=== PATIENT | female | born 1945 | race Caucasian/White ===

== ENCOUNTER 2022-12-01 14:22 | Emergency (ER) | payer MEDICARE, OTHER, SELFPAY ==
[2022-12-01 14:31] VITALS: BP 122/74; PULSE 58; RESP 16; TEMP 36.7; O2SAT 98; BMI 46.3
--- NOTE | 2022-12-01 14:40 | CT_ITS ---
The [address] [address] Patient Name: LUMA RIBEIRO MRN: [id number] date: 1945 Sex: F Assigned Patient Location: ER Current Patient Location: ER Accession/Order Number: [id number] Exam Date: 12/01/2022 14:50 Report Date: 12/01/2022 15:14 At the request of: LEE THORPE Procedure: CT facial bones wo con EXAMINATION: CT head/brain wo con, CT facial bones wo con HISTORY: fall COMPARISON: None. TECHNIQUE: CT scan of the head and facial was performed without IV contrast. CT dose reduction technique was used, including Automated Exposure Control. FINDINGS: There are no extra-axial fluid collections. There is no mass effect or midline shift. The cerebral ventricles and sulci are normal. The brain demonstrates normal attenuation. Basal cisterns are patent. There is bilateral subcortical and deep periventricular white matter chronic microvascular ischemia. There is mucosal thickening of the ethmoid air cells. Bilateral orbits, optic nerves, paranasal sinuses and mastoid air cells are patent. No skull base fracture. The TM joint is normal. CT/CT facial bones wo con IMPRESSION: No acute intracranial hemorrhage. No facial bone fracture. Electronically authenticated by: ORAL GALAN Date: 12/01/2022 15:14
--- NOTE | 2022-12-01 14:40 | CT_ITS ---
The [address] [address] Patient Name: LUMA RIBEIRO MRN: [id number] date: 1945 Sex: F Assigned Patient Location: ER Current Patient Location: ER Accession/Order Number: [id number] Exam Date: 12/01/2022 14:50 Report Date: 12/01/2022 15:14 At the request of: LEE THORPE Procedure: CT head/brain wo con EXAMINATION: CT head/brain wo con, CT facial bones wo con HISTORY: fall COMPARISON: None. TECHNIQUE: CT scan of the head and facial was performed without IV contrast. CT dose reduction technique was used, including Automated Exposure Control. FINDINGS: There are no extra-axial fluid collections. There is no mass effect or midline shift. The cerebral ventricles and sulci are normal. The brain demonstrates normal attenuation. Basal cisterns are patent. There is bilateral subcortical and deep periventricular white matter chronic microvascular ischemia. There is mucosal thickening of the ethmoid air cells. Bilateral orbits, optic nerves, paranasal sinuses and mastoid air cells are patent. No skull base fracture. The TM joint is normal. CT/CT head/brain wo con IMPRESSION: No acute intracranial hemorrhage. No facial bone fracture. Electronically authenticated by: ORAL GALAN Date: 12/01/2022 15:14
--- NOTE | 2022-12-01 14:40 | XR_ITS ---
The [address] [address] Patient Name: LUMA RIBEIRO MRN: [id number] date: 1945 Sex: F Assigned Patient Location: ER Current Patient Location: ER Accession/Order Number: [id number] Exam Date: 12/01/2022 15:00 Report Date: 12/01/2022 15:23 At the request of: LEE THORPE Procedure: XR elbow RT min 3V EXAM: XR elbow RT min 3V HISTORY: Fall COMPARISON: None. TECHNIQUE: 3 views FINDINGS: Overall bony architecture is normal. There is narrowing at the proximal radioulnar articulation with early marginal osteophytosis of the radial head. The anterior distal humeral fat pad appears mildly displaced. However, this finding is difficult to assess as the lateral view is very slightly oblique. Dorsal soft tissue swelling is noted. XR/XR elbow RT min 3V IMPRESSION: Early degenerative changes at the proximal radioulnar articulation. No definite direct or indirect finding for acute fracture at the elbow. It is recommended that the patient return for a true lateral view to assess the distal humeral fat pads. Electronically authenticated by: Michael BURNETTE Date: 12/01/2022 15:23
--- NOTE | 2022-12-01 14:40 | XR_ITS ---
The [address] [address] Patient Name: LUMA RIBEIRO MRN: [id number] date: 1945 Sex: F Assigned Patient Location: ER Current Patient Location: Accession/Order Number: [id number] Exam Date: 12/01/2022 15:00 Report Date: 12/01/2022 15:32 At the request of: LEE THORPE Procedure: XR knee RT 3V EXAM: XR knee RT 3V HISTORY: Fall COMPARISON: None. TECHNIQUE: 2 views of the right knee. FINDINGS: Bones: No acute or aggressive appearing bony lesion. Joints: Normal alignment. No effusion. 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 Soft tissues: Unremarkable. XR/XR knee RT 3V IMPRESSION: No acute fracture. Electronically authenticated by: ORAL GALAN Date: 12/01/2022 15:32
--- NOTE | 2022-12-01 14:41 | ED.FALL1 ---
HPI - Fall General Chief Complaint: Fall Stated Complaint: FALL Time Seen by Provider: 12/01/22 14:40 Source: patient Mode of arrival: ambulance Limitations: no limitations History of Present Illness HPI Narrative: patient is a 77-year-old female presents to the emergency department by ambulance for injuries after a fall. Patientt was walking into her doctor's office with a walker when she tripped on the curb and fell on her right side. She denies head injury, loss of consciousness, neck or back pain. She sustained a small scrape to her right elbow. Patient states yesterday when she was getting out of her chair she fell forward after losing her balance and hit the right side of her face on a door frame as well as injured her right knee. She was not evaluated for the injuries yesterday. She is not on any blood thinners. She denies the need for pain medication at this time. Her PCP called 911 to bring her to the Emergency Room to be evaluated. After her fall yesterday, patient was able to ambulate normally. She has a history of right knee replacement. Related Data Home Medications Medication Instructions Recorded Confirmed alprazolam 0.25 mg tablet 0.25 mg PO BID PRN anxiety 12/01/22 12/01/22 amlodipine 5 mg tablet 5 mg PO DAILY 12/01/22 12/01/22 gabapentin 300 mg capsule 300 mg PO BID 12/01/22 12/01/22 hydrocodone 5 mg-acetaminophen 325 1 tab PO Q6H PRN pain 12/01/22 12/01/22 mg tablet meloxicam 15 mg tablet 15 mg PO DAILY 12/01/22 12/01/22 metoprolol succinate 50 mg 50 mg PO DAILY 12/01/22 12/01/22 tablet,extended release 24 hr nortriptyline 10 mg capsule 30 mg PO BEDTIME 12/01/22 12/01/22 pantoprazole 40 mg tablet,delayed 40 mg PO DAILY 12/01/22 12/01/22 release simvastatin 10 mg tablet 10 mg PO DAILY 12/01/22 12/01/22 zolpidem 10 mg tablet 10 mg PO DAILY 12/01/22 12/01/22 Allergies Allergy/AdvReac Type Severity Reaction Status Date / Time clarithromycin Allergy Severe Rash Verified 12/01/22 14:27 moxifloxacin [From Avelox] Allergy Severe tongue Verified 12/01/22 14:27 swelling Sulfa (Sulfonamide Allergy Unknown Verified 12/01/22 14:27 Antibiotics) ciprofloxacin [From Cipro] Allergy Rash Verified 12/01/22 14:27 Review of Systems ROS Constitutional Denies: fever or chills Ears, nose, mouth, and throat Denies: throat pain Cardiovascular Denies: chest pain Respiratory Denies: shortness of breath Gastrointestinal Denies: abdominal pain, nausea or vomiting Genitourinary Denies: painful urination Musculoskeletal Reports: extremity pain; Denies: back pain or neck pain Integumentary/Breast Denies: rash Neurological Denies: headache PFSH PFS Social History Smoking status: Never smoker Exam Narrative Exam Narrative: Gen.: Awake, alert, in no distress Head: Normocephalic, atraumatic; swelling and abrasion noted to the right maxilla under the right orbit with normal extraocular muscle motion ENT: Moist mucous membranes, C-spine nontender with full range of motion Respiratory: No respiratory distress Extremities: Moves extremities equally, well-healed surgical incision over the right knee with mild ecchymosis. No bony point tenderness aand normal range of motion noted. Abrasion to the right posterior elbow, no bony tenderness of the right elbow with normal flexion and extension of the right elbow. Psych: Normal mood and affect Neuro: No focal neuro deficit Skin: Warm, dry Constitutional Vital Signs, click to edit/add: Last Vital Signs Temp 98.1 F 12/01/22 14:31 Pulse 58 L 12/01/22 14:31 Resp 16 12/01/22 14:31 BP 122/74 12/01/22 14:31 Pulse Ox 98 12/01/22 14:31 O2 Del Method Room Air 12/01/22 14:31 Course Vital Signs Vital signs: Vital Signs Temperature 98.1 F 12/01/22 14:31 Pulse Rate 58 L 12/01/22 14:31 Respiratory Rate 16 12/01/22 14:31 Blood Pressure 122/74 12/01/22 14:31 Pulse Oximetry 98 12/01/22 14:31 Oxygen Delivery Method Room Air 12/01/22 14:31 Temperature 98.1 F 12/01/22 14:31 Pulse Rate 58 L 08/03/23 14:31 Respiratory Rate 16 12/01/22 14:31 Blood Pressure 122/74 12/01/22 14:31 Pulse Oximetry 98 12/01/22 14:31 Oxygen Delivery Method Room Air 12/01/22 14:31 MDM - Fall MDM Narrative Medical decision making narrative: CTs of the head and facial bones are unremarkable. These were reviewed by the radiologist. X-rays of the right knee are also unremarkable. Initial right elbow x-rays were incomplete and additional lateral studies were added. No acute process in the right elbow. Patient declined pain medication in the emergency department. Follow-up with PCP. Apply ice to areas of injury and return to the Emergency Room if symptoms change or worsen. Medical Records Attestation: I reviewed the patient's medical records. Imaging Data CT scan - head: Attestation: I have reviewed the pertinent imaging results. Radiologist's impression: Procedure: CT head/brain wo con EXAMINATION: CT head/brain wo con, CT facial bones wo con HISTORY: fall COMPARISON: None. TECHNIQUE: CT scan of the head and facial was performed without IV contrast. CT dose reduction technique was used, including Automated Exposure Control. FINDINGS: There are no extra-axial fluid collections. There is no mass effect or midline shift. The cerebral ventricles and sulci are normal. The brain demonstrates normal attenuation. Basal cisterns are patent. There is bilateral subcortical and deep periventricular white matter chronic microvascular ischemia. There is mucosal thickening of the ethmoid air cells. Bilateral orbits, optic nerves, paranasal sinuses and mastoid air cells are patent. No skull base fracture. The TM joint is normal. IMPRESSION: No acute intracranial hemorrhage. No facial bone fracture. Electronically authenticated by: ORAL GALAN Date: 12/01/2022 15:14 Procedure: CT facial bones wo con EXAMINATION: CT head/brain wo con, CT facial bones wo con HISTORY: fall COMPARISON: None. TECHNIQUE: CT scan of the head and facial was performed without IV contrast. CT dose reduction technique was used, including Automated Exposure Control. FINDINGS: There are no extra-axial fluid collections. There is no mass effect or midline shift. The cerebral ventricles and sulci are normal. The brain demonstrates normal attenuation. Basal cisterns are patent. There is bilateral subcortical and deep periventricular white matter chronic microvascular ischemia. There is mucosal thickening of the ethmoid air cells. Bilateral orbits, optic nerves, paranasal sinuses and mastoid air cells are patent. No skull base fracture. The TM joint is normal. IMPRESSION: No acute intracranial hemorrhage. No facial bone fracture. Electronically authenticated by: ORAL GALAN Date: 12/01/2022 15:14 Procedure: XR elbow RT min 3V EXAM: XR elbow RT min 3V HISTORY: Fall COMPARISON: None. TECHNIQUE: 3 views FINDINGS: Overall bony architecture is normal. There is narrowing at the proximal radioulnar articulation with early marginal osteophytosis of the radial head. The anterior distal humeral fat pad appears mildly displaced. However, this finding is difficult to assess as the lateral view is very slightly oblique. Dorsal soft tissue swelling is noted. IMPRESSION: Early degenerative changes at the proximal radioulnar articulation. No definite direct or indirect finding for acute fracture at the elbow. It is recommended that the patient return for a true lateral view to assess the distal humeral fat pads. Electronically authenticated by: Michael BURNETTE Date: 12/01/2022 15:23 Procedure: XR elbow RT 2V STUDY: XR elbow RT 2V, [id number] HISTORY: lateral view needed COMPARISON: Correlated with same day right elbow x-rays FINDINGS/IMPRESSION: No elbow joint effusion. Mild osteophytosis of the radial head and minimal enthesopathy at the olecranon process. No acute displaced fracture demonstrated. Electronically authenticated by: CATHRYN HOLM Date: 12/01/2022 16:09 Procedure: XR knee RT 3V EXAM: XR knee RT 3V HISTORY: Fall COMPARISON: None. TECHNIQUE: 2 views of the right knee. FINDINGS: Bones: No acute or aggressive appearing bony lesion. Joints: Normal alignment. No effusion. 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 Soft tissues: Unremarkable. IMPRESSION: No acute fracture. Electronically authenticated by: ORAL GALAN Date: 12/01/2022 15:32 Discharge Plan Discharge Chief Complaint: Fall Clinical Impression: Closed head injury, Fall, Contusion of right knee, Abrasion of elbow, right Time of Disposition Decision: 16:24 Condition: Good Prescriptions / Home Meds: No Action alprazolam 0.25 mg tablet 0.25 mg PO BID PRN (Reason: anxiety) amlodipine 5 mg tablet 5 mg PO DAILY gabapentin 300 mg capsule 300 mg PO BID hydrocodone-acetaminophen 5-325 mg tablet 1 tab PO Q6H PRN (Reason: pain) meloxicam 15 mg tablet 15 mg PO DAILY metoprolol succinate 50 mg tablet extended release 24 hr 50 mg PO DAILY nortriptyline 10 mg capsule 30 mg PO BEDTIME pantoprazole 40 mg tablet,delayed release (DR/EC) 40 mg PO DAILY simvastatin 10 mg tablet 10 mg PO DAILY zolpidem 10 mg tablet 10 mg PO DAILY Instructions: Fall Prevention for Older Adults (ED), Head Injury (ED), Contusion in Adults (ED), Abrasion (ED) Stand Alone Forms: Portal Instructions Referrals: REJI FORRESTER [Primary Care Provider] - 1 week
--- NOTE | 2022-12-01 15:27 | XR_ITS ---
The [place] [id number] Patient Name: LUMA RIBEIRO MRN: [id number] date: 1945 Sex: F Assigned Patient Location: ER Current Patient Location: ER Accession/Order Number: [id number] Exam Date: 12/01/2022 15:30 Report Date: 12/01/2022 16:09 At the request of: MARION HAGEN Procedure: XR elbow RT 2V STUDY: XR elbow RT 2V, [id number] HISTORY: lateral view needed COMPARISON: Correlated with same day right elbow x-rays FINDINGS/IMPRESSION: No elbow joint effusion. Mild osteophytosis of the radial head and minimal enthesopathy at the olecranon process. No acute displaced fracture demonstrated. Electronically authenticated by: CATHRYN HOLM Date: 12/01/2022 16:09
== END 2022-12-01 16:40 | disposition home or self-care (01) ==
PROVIDERS: Emergency Provider Emergency Medicine; PCP Internal Medicine
DX: S50.311A Abrasion of right elbow, initial encounter (principal); S80.01XA Contusion of right knee, initial encounter; S09.8XXA Other specified injuries of head, initial encounter; W10.1XXA Fall (on)(from) sidewalk curb, initial encounter; Z79.899 Other long term (current) drug therapy
CPT/HCPCS: 70450; 70486; 73070; 73080; 73562; 99284

== ENCOUNTER 2023-06-22 13:46 | Outpatient (OUT) | payer MEDICARE, OTHER, SELFPAY ==
--- NOTE | 2023-06-22 | ECG_ITS ---
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
--- NOTE | 2023-06-22 14:00 | XR_ITS ---
The [address] [address] Patient Name: LUMA RIBEIRO MRN: [id number] date: 1945 Sex: F Assigned Patient Location: LAB Current Patient Location: LAB Accession/Order Number: [id number] Exam Date: 06/22/2023 14:05 Report Date: 06/22/2023 15:17 At the request of: ALMAS ALFREDO Procedure: XR chest 2V PROCEDURE: XR chest 2V DATE: 06/22/2023 2:05 PM EST COMPARISONS: None. CLINICAL INDICATION: 77 years Female Preop Examination Z01.818 FINDINGS: Heart appears slightly prominent. The lungs are hypoaerated. There is slight diffuse increased interstitial markings throughout all lung baker. Some of this may represent some atelectasis. Much of it probably represents a small amount of scattered chronic lung changes. There is no evidence of pleural effusion or pneumothorax. XR/XR chest 2V IMPRESSION: The lung baker show probable scattered atelectasis and chronic changes. No consolidating infiltrates to suggest pneumonia. Mild cardiomegaly. Electronically authenticated by: MARY LOU JOSE Date: 06/22/2023 15:17
[2023-06-22 14:27] LABS: Basophils Absolute Auto 0.1 10^3/uL (0.0-0.1); Basophils Percent Auto 0.7 % (0.2-2.0); Eosinophils Absolute Auto 0.1 10^3/uL (0.0-0.7); Eosinophils Percent Auto 1.3 % (0.9-7.0); Hematocrit 43.7 % (36.0-48.0); Hemoglobin 14.3 g/dL (12.0-16.0); Immature Granulocytes Abs Auto 0.01 10^3/uL (0.00-0.03); Immature Granulocytes Pct Auto 0.1 % (0.0-0.5); Lymphocytes Absolute Auto 3.8 10^3/uL (1.2-3.8); Lymphocytes Percent Auto 49.8 % (20.5-60.0); Mean Corpuscular HGB Conc 32.7 g/dL (29.9-35.2); Mean Corpuscular Hemoglobin 31.5 pg (26.7-34.0); Mean Corpuscular Volume 96.3 fL (81.0-99.0); Mean Platelet Volume 10.3 fL (9.5-13.5); Monocytes Absolute Auto 0.8 10^3/uL (0.3-0.8); Monocytes Percent Auto 9.9 % (1.7-12.0); Neutrophils Absolute Auto 2.9 10^3/uL (1.4-6.5); Neutrophils Percent Auto 38.2 % (43.0-75.0); Platelet Count 262 10^3/uL (150-450); Red Blood Count 4.54 10^6/uL (4.20-5.40); Red Cell Distribution Width 12.2 % (11.0-15.0); White Blood Count 7.6 10^3/uL (4.0-11.0)
[2023-06-22 14:35] LABS: Anion Gap 11.8; BUN Creatinine Ratio 14.9; Calcium 8.9 mg/dL (8.5-10.1); Chloride 100 mmol/L (98-107); Estimated GFR (African America 52 (>=60); Estimated GFR (Non-African Ame 43 (>=60); Glucose 148 mg/dL (74-106); Potassium 3.8 mmol/L (3.5-5.1); Sodium 138 mmol/L (136-145)
== END 2023-06-22 13:47 | disposition home or self-care (01) ==
PROVIDERS: PCP Internal Medicine
DX: Z01.818 Encounter for other preprocedural examination (principal); I51.7 Cardiomegaly
CPT/HCPCS: 36415; 71046; 80048; 85025; 93005

== ENCOUNTER 2024-05-12 17:28 | Inpatient (IN) | payer MEDICARE, OTHER, SELFPAY ==
[2024-05-12] VITALS (12 sets, daily range): BP systolic 136–158; BP diastolic 78–103; PULSE 88–109; TEMP 36.6–36.8; O2SAT 97–99; BMI 45.7; BMI 44.5
--- OUTSIDE RECORDS SUMMARY | 2024-05-12 17:42 | XMS_ITS | CCD ---
Author Organization [facility] Care Team Providers Care Security Researcher Name Role Phone Tasia Bird Unavailable Unavailable Unavailable Unavailable Unavailable SASHA SHAW Consulting Unavailable TRA Cotto, SASHA Admitting Unavailable USAMA, DR MENDOZA Primary Care Unavailable SASHA SHAW Attending Unavailable HATTIE OH Consulting Unavailable USAMA, DR MENDOZA Attending Unavailable USAMA, DR MENDOZA Consulting Unavailable USAMA, DR MENDOZA Primary Care Unavailable USAMA, DR MENDOZA Admitting Unavailable LISA CABALLERO V Consulting Unavailable CHANTAL Cotto, DR WHIPPLE Attending Unavailable CHANTAL ., DR WHPIPLE Admitting Unavailable USAMA, DR MENDOZA Primary Care Unavailable ISAEL HANSEN Consulting Unavailable ROXANN KERR Consulting Unavailab harjinder Steele II, Dr. Roc Lerma Primary Care Catina sarah Canchola, Dr. Taniya Briscoe Attending U Roc Wellington MD Unavailable [phone] Roc Steele MD Primary Care Provider [phone] Roc Steele MD Unavailable Waqas Dugan DO Unavailable ALEX TAM Attending Unavailable ALEX TAM Attending Unavailable ALEX TAM Attending Unavailable BIGGALEXIRI Ren Attending Unavailable ALEX TAM Attending Unavailable BIGGKAMILA Attending Unavailable BROWNALEX A Attending Unavailable BIGGALEXIRI M Attending Unavailable ALEX TAM A Attending Unavailable BIGG, KAMILA M Attending Unavailable ALEX TAM Attending Unavailable ALEX TAM A Attending Unavailable BIGG, KAMILA M Attending Unavailable WAQAS DUGAN Attending Unavailable BIGG, KAMILA M Referring Unavailable BIGG, KAMILA M Attending Unavailable BIGG, KAMLIA M Attending Unavailable BIGG, KAMILA M Referring Unavailable Mala Sapp Attending Mala Torres Admitting Roc Leary Primary Care Unavailable Allergies Allergy Classification Reported Allergen(s) Allergy Type Date of Onset Reaction(s) Facility Macrolides (antibiotic) (6 sources) Clarithromycin; Translations: [clarithromycin] Drug Allergy Unknown [facility] Work Phone: Quinolones (antibiotic) (18 sources) moxifloxacin; Translations: [moxifloxacin] Drug Allergy Anaphylaxis, Unknown [facility] Work Phone: (20 sources) Ciprofloxacin; Translations: [ciprofloxacin] Drug Allergy 3 Unknown [facility] (20 sources) Clarithromycin; Translations: [clarithromycin] Drug Allergy 3 Unknown [facility] (4 sources) moxifloxacin; Translations: [Avelox] Drug Allergy 3 Anaphylaxis [facility] (20 sources) moxifloxacin; Translations: [moxifloxacin] Drug Allergy 3 Anaphylaxis [facility] Work Phone: (1 source) Ciprofloxacin Drug Allergy 3 [facility] (1 source) Sulfonamides (Antibiotic) Drug allergy (disorder) 3 [facility] (20 sources) Sulfanilamide Allergy to substance 3 [facility] Medications Current Medications Medication Drug Class(es) Dates Sig (Normalized) Sig (Original) acetaminophen 325 mg / HYDROcodone bitartrate 5 mg oral tablet (12 sources) Opioid Agonist Start: 02-29-2024 End: 05-03-2024 take 1 tablet by mouth every four hours for pain HYDROcodone-acetam inophen ([place]) 5-325 MG tablet Indications: Lumbosacral spondylosis without myelopathy Take 1 tablet by mouth every 4 (four) hours if needed for severe pain 180 tablet 04/03/2024 05/03/2024 Active ALPRAZolam 0.25 mg oral tablet (20 sources) Benzodiazepine Start: 11-30-2023 take 1 tablet by mouth twice daily as needed for anxiety ALPRAZolam (Xanax) 0.25 MG tablet Indications: Anxiety Take 1 tablet (0.25 mg) by mouth 2 (two) times a day as needed for anxiety 60 tablet 11/30/2023 Active take 1 tablet by lori twice daily as needed ALPRAZolam (Xanax) 0.25 MG tablet Take 0 .25 mg by mouth 2 (two) times a day as needed. 0 Active amLODIPine 5 mg oral tablet (20 sources) Dihydropyridine Calcium Channel Shaina Start: 10-17-2022 End: 01-29-2024 take 1 tablet by mouth once daily amLODIPine (Norvasc) 5 MG tablet Indications: Benign essential hypertension (CMS/HCC) Take 1 tablet (5 mg) by mouth Daily 90 tablet 3 01/29/2024 Active amoxicillin 500 mg oral capsule (5 sources) Penicillin-class Antibacterial Start: 05-18-2023 End: 06-08-2023 take 4 tablets by mouth every hour amoxicillin (Amoxil) 500 MG capsule Indications: Onychomycosis Take all 4 tablets 1 hour by mouth prior to procedure. 4 capsule 1 05/18/2023 Active calcium carbonate 1500 mg / cholecalciferol 800 unt chewable tablet (20 sources) Vitamin D Calcium Carb-Cholecalcifer ol 600-20 MG-MCG chewable tablet calcium carb 600 mg(1,500 mg)-vit D3 400 unit-minerals chewable tablet Take by oral route. Active cefdinir 300 mg oral capsule (3 sources) Cephalosporin Antibacterial Start: 04-03-2024 End: 04-13-2024 take 1 capsule by mouth in the morning cefdinir (Omnicef) 300 MG capsule Indications: Acute non-recurrent sinusitis of other sinus Take 1 capsule (300 mg) by mouth in the morning and 1 capsule (300 mg) before bedtime. Do all this for 10 days. 20 capsule 04/03/2024 04/13/2024 Active cephalexin 500 mg oral capsule (6 sources) Cephalosporin Antibacterial Start: 03-05-2024 End: 03-12-2024 take 1 capsule by mouth in the morning, then take 1 capsule by mouth in the evening, then take 1 capsule by mouth at bedtime cephalexin (Keflex) 500 MG capsule Indications: Cellulitis of finger of left hand Take 1 capsule (500 mg) by mouth in the morning and 1 capsule (500 mg) in the evening and 1 capsule (500 mg) before bedtime. Do all this for 7 days. 21 capsule 03/05/2024 03/12/2024 Active Start: 06-01-2023 End: 06-11-2023 take 1 capsule by mouth in the morning, then take 1 capsule by mouth in the evening, then take 1 capsule by mouth at bedtime, then take 1 capsule by mouth three times daily cephalexin (Keflex) 500 MG capsule Indications: Onychocryptosis , Toe pain, right Take 1 capsule (500 mg) by mouth in the morning and 1 capsule (500 mg) in the evening and 1 capsule (500 mg) before bedtime. Do all this for 10 days. Take one tablet by mouth three times daily. 30 capsule 0 06/01/2023 06/11/2023 Active codeine phosphate 2 mg/ml / guaiFENesin 20 mg/ml oral solution (5 sources) Opioid Agonist Start: 05-07-2024 End: 05-12-2024 take 5 mL by mouth four times daily as needed for cough guaiFENesin-codeine (Robitussin-AC) 100-10 MG/5ML syrup Indications: Acute cough Take 5 mL by mouth 4 (four) times a day as needed for cough for up to 5 days 240 mL 05/07/2024 05/12/2024 Active Start: 04-03-2024 End: 04-08-2024 take 5 mL by mouth four times daily as needed for cough guaiFENesin-codeine (Virtussin A/C) 100-10 MG/5ML syrup Indications: Acute cough Take 5 mL by mouth 4 (four) times a day as needed for cough for up to 5 days 240 mL 04/03/2024 04/08/2024 Active cyclobenzaprine hydrochloride 10 mg oral tablet (20 sources) Muscle Relaxant take 1 tablet by mouth three times daily as needed for muscle spasms cyclobenzaprine (Flexeril) 10 MG tablet Take 10 mg by mouth 3 (three) times a day as needed for muscle spasms. Active docusate sodium 100 mg oral capsule (5 sources) docusate sodium (Colace) 100 MG capsule 1 (one) time each day at the same time. 0 Active doxycycline hyclate 100 mg oral tablet (2 sources) Tetracycline-cla ss Drug Start: 05-07-19 25 End: 05-17-19 doxycycline (Vibra-Tabs) 100 MG tablet Indications: Bronchitis Take 1 tablet (100 mg) by mouth in the morning and 1 tablet (100 mg) before bedtime. Do all this for 10 days. Take with a full glass of water and do not lie down for at least 30 minutes after.. 20 tablet 05/07/2024 05/17/2024 Active furosemide 20 mg oral tablet (4 sources) Loop Diuretic Start: 04-04-20 End: 04-11-20 take 1 tablet by mouth once daily furosemide (Lasix) 20 MG tablet Indications: Acute pulmonary edema (CMS/HCC) Take 1 tablet (20 mg) by mouth Daily for 7 days 7 tablet 04/04/2024 Active gabapentin 300 mg oral capsule (20 sources) Anti-epileptic Agent Start: 08-08-19 take 1 capsule by mouth twice daily gabapentin (Neurontin) 300 MG capsule Indications: Acute low back pain without sciatica, unspecified back pain laterality TAKE 1 CAPSULE BY MOUTH TWICE DAILY 200 capsule 3 08/08/2023 Active take 1 capsule by mouth twice da esther gabapentin (Neurontin) 300 MG capsule TAKE 1 CAPSULE BY MOUTH TWICE DAILY for 90 0 Active lactulose 667 mg/ml oral solution (5 sources) Osmotic Laxative Start: 09-05-2022 take 30 mL by mouth twice daily Constulose 10 GM/15ML solution TAKE 30 ML BY MOUTH TWICE DAILY FOR 3 DAYS 0 09/05/2022 Active meloxicam 15 mg oral tablet (20 sources) Nonsteroidal Anti-inflammatory Drug Start: 09-13-2023 take 1 tablet by mouth once daily meloxicam (Mobic) 15 MG tablet Indications: Primary osteoarthritis involving multiple joints TAKE 1 TABLET BY MOUTH ONCE DAILY 100 tablet 3 09/13/2023 Active Start: 11-09-2022 take 1 tablet by lori th once daily meloxicam (Mobic) 15 MG tablet Indications: Primary osteoarthritis involving multiple joints TAKE 1 TABLET BY MOUTH ONCE DAILY 90 tablet 3 11/09/2022 Active methylPREDNISolone (2 sources) Corticosteroid Start: 05-07-2024 End: 05-14-2024 methylPREDNISolone (Medrol Dospak) 4 MG tablets Indications: Bronchitis Follow schedule on package instructions 21 tablet 05/07/2024 05/14/2024 Active 24 hr metoprolol succinate 50 mg extended release oral tablet (20 sources) beta-Adrenergic Shaina Start: 08-08-2023 take 1 tablet by mouth once daily metoprolol succinate XL (Toprol-XL) 50 MG 24 hr tablet Indications: Benign essential hypertension (CMS/HCC) TAKE 1 TABLET BY MOUTH ONCE DAILY 90 tablet 3 08/08/2023 Active take 1 tablet by mouth once [place] y metoprolol succinate XL (Toprol-XL) 50 MG 24 hr tablet TAKE 1 TABLET BY MOUTH ONCE DAILY for 90 0 Active Multiple Vitamin (Multi Vashti min) tablet (20 sources) Multiple Vitamin (Multi Vitamin) tablet 1 (one) time each day at the same time. Active Multiple Vitamin (Multi Vitamin) tablet 1 (one) time each day at the same time. 0 Active nortriptyline 10 mg oral capsule (20 sources) Tricyclic Antidepressant Start: 10-26-2023 take 3 capsules by mouth once daily at bedtime nortriptyline (Pamelor) 10 MG capsule Indications: Primary insomnia , Anxiety TAKE 3 CAPSULES BY MOUTH AT BEDTIME ONCE DAILY 270 capsule 3 10/26/2023 Active Start: 11-09-2022 take 3 capsules by m outh once daily at bedtime nortriptyline (Pamelor) 10 MG capsule Indications: Primary insomnia , Anxiety TAKE 3 CAPSULES BY MOUTH AT BEDTIME ONCE DAILY 270 capsule 3 11/09/2022 Active pantoprazole 40 mg delayed release oral tablet (20 sources) Proton Pump Inhibitor Start: 08-08-2023 take 1 tablet by mouth once daily pantoprazole (ProtoNix) 40 MG EC tablet Indications: Gastroesophageal reflux disease with esophagitis without hemorrhage TAKE 1 TABLET BY MOUTH ONCE DAILY 100 tablet 3 08/08/2023 Active take 1 tablet by mouth once [place] y pantoprazole (ProtoNix) 40 MG EC tablet TAKE 1 TABLET BY MOUTH ONCE DAILY for 90 0 Active plecanatide 3 mg oral tablet (5 sources) Start: 10-13-2022 End: 10-13-2023 take 1 tablet by mouth in the morning plecanatide (Trulance) tablet tablet Indications: Chronic idiopathic constipation Take 1 tablet (3 mg) by mouth in the morning. 30 tablet 11 10/13/2022 10/13/2023 Active microencapsulated potassium chloride 10 meq extended release oral tablet (1 source) Start: 04-04-2024 End: 04-11-2024 take 1 tablet by mouth once daily potassium chloride CR (Klor-Con M10) 10 MEQ ER tablet Indications: Acute pulmonary edema (CMS/HCC) , Hypokalemia Take 1 tablet (10 mEq) by mouth Daily for 7 days Do not crush or chew. 7 tablet 04/04/2024 04/11/2024 Active simvastatin 10 mg oral tablet (20 sources) HMG-CoA Reductase Inhibitor Start: 09-13-2023 take 1 tablet by mouth once daily simvastatin (Zocor) 10 MG tablet Indications: Hyperlipidemia, unspecified hyperlipidemia type (CMS/HCC) TAKE 1 TABLET BY MOUTH ONCE DAILY 100 tablet 3 09/13/2023 Active take 1 tablet by mouth once [place] y simvastatin (Zocor) 10 MG tablet TAKE 1 TABLET BY MOUTH ONCE DAILY for 90 0 Active tiZANidine 4 mg oral tablet (20 sources) Central alpha-2 Adrenergic Agonist Start: 04-16-2024 End: 04-16-2024 take 1 tablet by mouth every eight hours as needed tiZANidine (Zanaflex) 4 MG tablet Indications: Primary insomnia TAKE 1 TABLET BY MOUTH EVERY 8 HOURS NEEDED 270 tablet 04/16/2024 Active take 1 tablet by lori th every eight hours as needed tiZANidine (Zanaflex) 4 MG tablet TAKE 1 TABLET BY MOUTH EVERY 8 HOURS NEEDED Orally Three times a day as needed for 90 days Active zolpidem tartrate 10 mg oral tablet (20 sources) gamma-Aminobutyric Acid-ergic Agonist Start: 10-17-2023 End: 04-16-2024 take 1 tablet by mouth at bedtime zolpidem (Ambien) 10 MG tablet Indications: Primary insomnia TAKE 1 TABLET BY MOUTH AT BEDTIME 90 tablet 04/16/2024 Active Start: 04-13-2023 take 1 tablet by lori th at bedtime zolpidem (Ambien) 10 MG tablet Indications: Primary insomnia Take 1 tablet (10 mg) by mouth at bedtime 90 tablet 1 04/13/2023 Active Problems Active Problems Problem Classification Problem Date Documented Da te Episodic/Chronic Abdominal pain (4 sources) Left upper quadrant pain; Translations: [LEFT UPPER QUADRANT PAIN] Onset: 3 Episodic Anxiety disorders (20 sources) Anxiety; Translations: [Anxiety disorder, unspecified] Onset: 3 09-30-2022 Chronic Biliary tract disease (1 source) Calculus of gallbladder without cholecystitis without obstruction; Translations: [CALCU GB W/O CHOLECYST W/O OBST] Onset: Episodic Blindness and vision defects (8 sources) Disorder of vision; Translations: [Problems with sight] Chronic Blindness and vision defects (1 source) Disorder of vision; Translations: [History of Vision problems] Episodic Cardiac dysrhythmias (20 sources) Paroxysmal supraventricular tachycardia; Translations: [Paroxysmal supraventricular tachycardia] Onset: 3 09-30-2022 Chronic Chronic obstructive pulmonary disease and bronchiectasis (1 source) Bronchiectasis, uncomplicated; Translations: [BRONCHIECTASIS UNCOMPLICATED] Onset: Chronic Chronic obstructive pulmonary disease and bronchiectasis (2 sources) Bronchitis; Translations: [Bronchitis, not specified as acute or chronic] 05-07-2024 Episodic Disorders of lipid metabolism (20 sources) Pure hypercholesterolemia, unspecified; Translations: [Hyperlipidemia] Onset: 3 09-30-2022 Chronic Diverticulosis and diverticulitis (20 sources) Diverticulosis of intestine, part unspecified, without perforation or abscess without bleeding; Translations: [Diverticulosis of colon] Onset: 3 09-30-2022 Chronic E Codes: Fall (2 sources) Fall; Translations: [Unspecified fall, initial encounter] 04-03-2024 Episodic Esophageal disorders (20 sources) Gastro-esophageal reflux disease without esophagitis; Translations: [Gastroesophageal reflux disease] Onset: 3 09-30-2022 Chronic Essential hypertension (20 sources) Essential (primary) hypertension; Translations: [Benign essential hypertension] Onset: 3 09-30-2022 Chronic Fluid and electrolyte disorders (1 source) Hypokalemia; Translations: [Hypokalemia] 04-04-2024 Episodic Immunizations and screening for infectious disease (2 sources) Needs influenza immunization; Translations: [Encounter for immunization] 03-05-2024 Episodic Joint disorders and dislocations; trauma-related (2 sources) Recurrent dislocation, right shoulder; Translations: [Dislocation of shoulder joint] Onset: 3 Episodic Lymphadenitis (2 sources) Lymphadenopathy; Translations: [Generalized enlarged lymph nodes] 03-05-2024 Episodic Menopausal disorders (20 sources) Decreased estrogen level; Translations: [Other primary ovarian failure] Onset: 3 09-30-2022 Chronic Miscellaneous mental health disorders (1 source) Primary insomnia; Translations: [Primary insomnia] 04-15-2024 Chronic Mycoses (1 source) Pain in toe; Translations: [Tinea unguium] 02-19-2024 Episodic Nausea and vomiting (1 source) Nausea; Translations: [NAUSEA] Onset: 3 Episodic Nutritional deficiencies (20 sources) Vitamin D deficiency; Translations: [Vitamin D deficiency, unspecified] Onset: 3 09-30-2022 Chronic Occlusion or stenosis of precerebral arteries (20 sources) Carotid artery occlusion; Translations: [Occlusion and stenosis of unspecified carotid artery] Onset: 3 09-30-2022 Chronic Osteoarthritis (20 sources) Osteoarthritis of multiple joints ; Translations: [Polyosteoarthritis, unspecified] Onset: 3 09-30-2022 Chronic Osteoporosis (1 source) Age-related osteoporosis without current pathological fracture; Translations: [AGE-REL OSTEOPOR W/O CURR PATH FX] Onset: 3 Chronic Other aftercare (1 source) 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; Translations: [OTH SENIOR LIVING CURRENT DRUG THERAPY] Onset: 3 Episodic Other and ill-defined heart disease (20 sources) Cardiomegaly; Translations: [Cardiomegaly] Onset: 3 09-30-2022 Chronic Other bone disease and musculoskeletal deformities (4 sources) Subungual exostosis of great toe; Translations: [Disorder of bone, unspecified] 06-01-2023 Episodic Other circulatory disease (9 sources) H/O: hypertension; Translations: [Personal history of other diseases of circulatory system] Episodic Other connective tissue disease (9 sources) History of total hip arthroplasty; Translations: [Hip joint replacement] Chronic Other connective tissue disease (20 sources) Musculoskeletal finding; Translations: [Presence of other bone and tendon implants] Onset: 3 09-30-2022 Chronic Other connective tissue disease (9 sources) H/O: arthritis; Translations: [Personal history of arthritis] Episodic Other connective tissue disease (8 sources) Trochanteric bursitis; Translations: [Enthesopathy of hip region] Episodic Other connective tissue disease (3 sources) Unspecified rotator cuff tear or rupture of unspecified shoulder, not specified as traumatic; Translations: [Rotator cuff tear] Episodic Other connective tissue disease (1 source) Fibromyalgia; Translations: [FIBROMYALGIA] Onset: 3 Episodic Other connective tissue disease (2 sources) Pain of toe of left foot; Translations: [Pain in left toe(s)] 06-15-2023 Episodic Other connective tissue disease (2 sources) Pain in axilla; Translations: [Pain in left upper arm] 03-05-2024 Episodic Other connective tissue disease (2 sources) Pain in right hand; Translations: [Pain in right hand] 04-03-2024 Episodic Other gastrointestinal disorders (9 sources) Disorder of digestive system; Translations: [Other digestive problems] Episodic Other gastrointestinal disorders (1 source) Constipation, unspecified; Translations: [CONSTIPATION UNSPECIFIED] Onset: 3 Episodic Other lower respiratory disease (4 sources) Cough; Translations: [Acute cough] 04-03-2024 Episodic Other lower respiratory disease (2 sources) Rib pain; Translations: [Pleurodynia] 04-03-2024 Episodic Other lower respiratory disease (2 sources) Dyspnea; Translations: [Shortness of breath] 04-03-2024 Episodic Other lower respiratory disease (1 source) Acute pulmonary edema; Translations: [Acute pulmonary edema] 04-04-2024 Episodic Other nervous system disorders (1 source) Other chronic pain; Translations: [OTHER CHRONIC PAIN] Onset: 3 Chronic Other nervous system disorders (20 sources) Difficulty walking; Translations: [Difficulty in walking, not elsewhere classified] Onset: 3 09-30-2022 Chronic Other nervous system disorders (2 sources) Carpal tunnel syndrome of left wrist; Translations: [Carpal tunnel syndrome, left upper limb] 03-07-2024 Chronic Other nervous system disorders (4 sources) Numbness of hand; Translations: [Anesthesia of skin] 03-05-2024 Episodic Other non-traumatic joint disorders (20 sources) Derangement of right shoulder joint; Translations: [Other specific joint derangements of right shoulder, not elsewhere classified] Onset: 3 09-30-2022 Chronic Other non-traumatic joint disorders (9 sources) Hip pain; Translations: [Pain in joint, pelvic region and thigh] Episodic Other non-traumatic joint disorders (1 source) Shoulder pain; Translations: [Pain in joint, shoulder region] Episodic Other non-traumatic joint disorders (2 sources) Pain of right wrist; Translations: [Pain in right wrist] 04-03-2024 Episodic Other nutritional; endocrine; and metabolic disorders (1 source) Morbid (severe) obesity due to excess calories; Translations: [MORBID SEVERE OBES D/T EXCESS MONALISA] Onset: 3 Chronic Other nutritional; endocrine; and metabolic disorders (1 source) Body mass index (BMI) 45.0-49.9, adult; Translations: [BODY MASS INDEX BMI 45.0-49.9 ADULT] Onset: 3 Chronic Other nutritional; endocrine; and metabolic disorders (20 sources) Morbid obesity; Translations: [Morbid (severe) obesity due to excess calories] Onset: 3 09-30-2022 Chronic Other nutritional; endocrine; and metabolic disorders (2 sources) Obesity caused by energy imbalance; Translations: [Morbid (severe) obesity due to excess calories] 05-07-2024 Chronic Other nutritional; endocrine; and metabolic disorders (2 sources) Body mass index 40+ - severely obese; Translations: [Body mass index (BMI) 45.0-49.9, adult] 05-07-2024 Chronic Other screening for suspected conditions (not mental disorders or infectious disease) (6 sources) Encounter for screening mammogram for malignant neoplasm of breast; Translations: [Patient encounter status] Onset: 3 Episodic Other skin disorders (8 sources) Mass of upper limb; Translations: [Localized superficial swelling, mass, or lump] Episodic Other skin disorders (4 sources) Ingrowing nail; Translations: [Ingrowing nail] 06-01-2023 Episodic Other upper respiratory disease (20 sources) Allergic rhinitis; Translations: [Allergic rhinitis, unspecified] Onset: 3 09-30-2022 Chronic Other upper respiratory infections (2 sources) Acute sinusitis; Translations: [Other acute sinusitis] 04-03-2024 Episodic Residual codes; unclassified (20 sources) Obstructive sleep apnea syndrome; Translations: [Obstructive sleep apnea (adult) (pediatric)] Onset: 3 09-30-2022 Chronic Residual codes; unclassified (9 sources) H/O: Disorder; Translations: [Personal history of other specified diseases] Episodic Retinal detachments; defects; vascular occlusion; and retinopathy (20 sources) Exudative age-related macular degeneration; Translations: [Exudative age-related macular degeneration, left eye, with active choroidal neovascularization] Onset: 3 09-30-2022 Chronic Rheumatoid arthritis and related disease (4 sources) Ankylosing spondylitis; Translations: [Ankylosing spondylitis of thoracic region] 03-05-2024 Chronic Skin and subcutaneous tissue infections (2 sources) Cellulitis of finger of left hand; Translations: [Cellulitis of left finger] 03-05-2024 Episodic Spondylosis; intervertebral disc disorders; other back problems (20 sources) Lumbosacral spondylosis without myelopathy; Translations: [Spondylosis without myelopathy or radiculopathy, lumbosacral region] Onset: 3 09-30-2022 Chronic Unclassified (1 source) LOW BACK PAIN, UNSPECIFIED; Translations: [LOW BACK PAIN, UNSPECIFIED] Onset: 3 Unclassified (1 source) ACIDOSIS UNSPECIFIED; Translations: [ACIDOSIS UNSPECIFIED] Onset: 3 Past or Other Problems Problem Classification Problem Date Documented Da te Episodic/Chronic Diabetes mellitus without complication (20 sources) Impaired glucose tolerance; Translations: [Impaired glucose tolerance (oral)] Onset: 09-30-2022 09-30-2022 Episodic Mood disorders (16 sources) Mood disorders Onset: 07-06-2023 07-06-2023 Nonmalignant breast conditions (20 sources) Breast hematoma; Translations: [Other specified disorders of breast] Onset: 09-30-2022 09-30-2022 Episodic Other bone disease and musculoskeletal deformities (20 sources) Osteopenia; Translations: [Other specified disorders of bone density and structure, unspecified site] Onset: 09-30-2022 09-30-2022 Episodic Other connective tissue disease (20 sources) Pain of toe of right foot; Translations: [Pain in right toe(s)] Onset: 06-15-2023 06-01-2023 Episodic Other connective tissue disease (20 sources) Recurrent falls ; Translations: [Repeated falls] Onset: 09-30-2022 09-30-2022 Episodic Other lower respiratory disease (20 sources) Chronic cough; Translations: [Chronic cough] Onset: 09-30-2022 09-30-2022 Episodic Other nervous system disorders (20 sources) Loss of sense of smell; Translations: [Anosmia] Onset: 09-30-2022 09-30-2022 Episodic Other nervous system disorders (20 sources) Loss of taste; Translations: [Parageusia] Onset: 09-30-2022 09-30-2022 Episodic Residual codes; unclassified (1 source) Family history of malignant neoplasm of breast; Translations: [FAMILY HX MALIG NEOPLASM OF BREAST] Onset: 06-07-2022 Episodic Residual codes; unclassified (20 sources) Edema; Translations: [Edema, unspecified] Onset: 09-30-2022 09-30-2022 Episodic Residual codes; unclassified (20 sources) Insomnia; Translations: [Insomnia, unspecified] Onset: 09-30-2022 09-30-2022 Episodic Spondylosis; intervertebral disc disorders; other back problems (20 sources) Low back pain; Translations: [Low back pain] Onset: 09-30-2022 09-30-2022 Episodic NEGATED: Highlighted row has not occurred!Residual codes; unclassified (2 sources) Disease Episodic Results Test Name Value Interpretation Reference Range Facility XR chest 2V*on 04-29-2024 XR chest 2V* [facility] [place] [address] XRay Report Signed Patient: Luma Ribeiro MR#: [id number] 923 : 1945 Acct:[id number] Age/Sex: 78 / F ADM Date: 04/29/24 Loc: XDUCLY Room: Type: [facility] 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 APRN Copies to: Mala Sapp APRN Ordering Provider: Mala Sapp APRN Date of Service: 04/29/24 XR/XR chest 2V*: COUGH Plain film chest 2 view HISTORY: Productive cough and shortness of breath COMPARISON: None FINDINGS: SUPPORT DEVICES: None POSTSURGICAL CHANGES: None HEART: Within normal limits PULMONARY EAV: Within normal limits MEDIASTINUM: Unremarkable LUNGS AND PLEURA: Diffuse mild interstitial changes. These may be chronic. Acute component may be present. No pleural effusion. No pneumothorax. BONY STRUCTURES: The cardiac and degenerative changes of the shoulders thoracic spondylosis. Diffuse osteopenia ADDITIONAL FINDINGS None XR/XR chest 2V* IMPRESSION: Diffuse interstitial changes in the lungs. This likely represents a chronic component. Superimposed acute component may be present. Impression dictated by: Jose R Christopher M.D.04/29/2024 4:00 PM Dictation Location: [facility]19 Transcribed By: [facility] 04/29/24 1600 Dictated By: Jose R Christopher DO 04/29/24 1559 Signed By: 04/29/24 1600 Normal [facility] XR CHEST 2 VIEWSon XR CHEST 2 VIEWS Exam: XR CHEST 2 VIE WS Reason for exam: Fell over two weeks ago, right anterior rib pain unter breast Prior comparative studies: None Findings: Lungs are slightly hyperinflated. There is widespread accentuation of interlobular septa and parabronchial cuffing. Heart is mildly enlarged. Calcified lymph node in the AP window is present. Mediastinum is otherwise unremarkable. There is likely anterior subluxation of the right shoulder. Soft tissue calcifications along the right proximal humerus noted. IMPRESSION: 1. Parabronchial cuffing and septal thickening suggest low level pulmonary congestion or edema. Bronchitis, interstitial fibrosis or airway disease could contribute to this appearance as well. 2. Mild cardiomegaly. 3. Mild obstructive pulmonary appearance. 4. Changes in and around the right shoulder as described. Dictated on: 04/03/2024 11:27 AM This report has been electronically signed and approved by the interpreting radiologist. Normal Not Available XR HAND 3+ VIEWS RIGHTon XR HAND 3+ VIEWS RIGHT Exam: XR HAND 3+ VIEWS RIGHT Reason for exam: Right hand pain into thumb Prior comparative studies: None Findings: There is mild sclerosis and joint space narrowing at the first CMC joint and thumb MCP joint. No fracture, malalignment or subluxation is apparent. Osseous density is normal. Impression: 1. No acute osseous abnormality identified. 2. Slight degenerative changes Dictated on: 04/03/2024 11:28 AM This report has been electronically signed and approved by the interpreting radiologist. Normal Not Available Comment on above: Order Comment: Inclu de hand and wrist EMG 1 [facility] NVC 7-8 Nerveson 03-07-2024 [facility] Established Visit (Orthopaed ic Surgery)on 10-04-2022 Established Visit (Orthopaedic Surgery) Diagnoses/Problems Assessed Shoulder pain (719.41) (M25.519) 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 : pain Chief Complaint RT shoulder Ongoing issue X rays [employer]PER[employer]OR today History of Present Illness New Patient Visit: CC: Right shoulder pain, anterior dislocation HPI: 76-year-old female presents here today with complaints of chronic pain and discomfort to the right shoulder. She was recently seen and evaluated in the hospital where a CT scan demonstrated anterior medial dislocation of her glenohumeral joint. Subsequently she was asked to follow-up with orthopedics after outpatient CT scan dedicated to the shoulder was performed by her primary care team. She presents here today for further evaluation. She previously was under the care of Dr. Bonifacio Bird for her right hip. Additionally I have seen the patient and met her before providing her a steroid injection 2 years prior to this right shoulder. She states a history of multiple falls over the last 2 to 3 years. She denies any new or recent fall or injury. States she has had significant pain discomfort to this right shoulder with limited range of motion and strength, often having to utilize her left arm to move her right upper extremity. She states pain but denies any numbness tingling or burning. Has no pain about the distal aspect of the humerus elbow forearm or wrist. Review of Systems, Past Medical History, Social History, and Family History documented and initialed on the patient information form dated 10/04/2022. Physical Exam: GENERAL: Patient is awake, alert, and oriented to person place and time. Patient appears well nourished and well kept. Affect Calm, Not Acutely Distressed. HEENT: Normocephalic, Atraumatic, EOMI CARDIOVASCULAR: Hemodynamically stable. RESPIRATORY: Normal respirations with unlabored breathing. NEURO: Gross sensation intact to the upper extremities bilaterally. Extremity: Right shoulder exam: On palpation there is obvious and visible palpable defect and deformity with a anterior medial shoulder dislocation. Patient has minimal tenderness to palpation at the glenohumeral joint, has more pain discomfort around the midportion of the humerus. She has no pain at the elbow. 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 Distal pulses and sensation are intact. Limited forward flexion to about 25 degrees lateral abduction to about 15 unable to perform any external rotation but internal he can get to the small of her back. Her exam does not allow for much of a true Neer's Shelby or Gooding's test. Diagnostics: See dictated report from today, previous outside CT scan report of the humerus reviewed, and is available in the [facility] chart. 1 Procedure: None Assessment: Chronic shoulder dislocation, history of massive rotator cuff tear Plan: Had a nice discussion with the patient and the at the bedside, we will offer her a comfortable sling if she would like, otherwise we will have the patient follow-up with Dr. Eulogio Alvarado for planned reverse shoulder replacement. Patient was agreeable to this. I discussed that at this time given the unknown chronicity of this shoulder dislocation it is not worth it to try to numb up and try to get ankle to put her arm back in place as it would likely come right back out. Patient was agreeable to just allowing rest for now. She was not interested in reducing it or having her go to the ER. I think this is very reasonable given the circumstances with the end game being a shoulder replacement. Given the fact that she has no neurologic phenomenon, we will presume this to be a chronic stable dislocation of the right shoulder. Additionally the patient was encouraged to bring her CT scan to assist the surgical team with management strategy options. No evidence for any humeral fracture here today, there are multiple calcific nodular densities throughout the the medial portion of the humerus proximally, however they appear to be in the soft tissues, and not directly attached to the periosteum. There is no obvious mention of significant abnormal findings on the patient's CT scan report reviewed in [facility] chart Other 1 than the anterior medial dislocation and other chronic degenerative changes. At the conclusion of the visit there were no further questions by the patient/family regarding their plan of care. Patient was instructed to call or return with any issues, questions, or concerns regarding their injury and/or treatment plan described above. This note was prepared using voice recognition software. The details of this note are correct and have been reviewed, and corrected to the best of my ability. Some grammatical areas may persist related to the Dragon software (more content not included)... Normal [facility] 10-04-2022 XR Shoulder 2 Views [facility] Work Phone: SHOULDER, CMPLT, MIN 2 VIEWS on 10-04-2022 SHOULDER, CMPLT, MIN 2 VIEWS Patient Name: LUMA RIBEIRO STUDY: SHOULDER, CMPLT, MIN 2 VIEWS; Right; 10/04/2022 1:49 pm INDICATION: pain M25.519: Shoulder pain. ACCESSION NUMBER(S): [id number] ORDERING CLINICIAN: TANIYA CANCHOLA FINDINGS: Multiple views right shoulder demonstrate severe chronic degenerative glenohumeral arthritic change with an anteromedial dislocation of the proximal humerus. Chronic appearing calcific nodules in the soft tissues noted, these may be in the lateral thorax soft tissues as they are not visualized easily on the axillary view. Overall impression severe degenerative changes about the glenohumeral joint with persistence of a chronic anteromedial dislocation. Electronically signed by: TANIYA CANCHOLA MD Normal [facility] CT HUMERUS RIGHT W/O CONTRAS Ton 09-12-2022 CT HUMERUS RIGHT W/O CONTRAST History: Possible dislocated right humerus. Fall 6 days ago. Findings: The humeral head is anteromedially dislocated. No acute displaced fracture is seen. There are however multiple small ossified bone fragments in the glenohumeral joint space. There is a moderate to large joint effusion. There is moderate degenerative change of the acromioclavicular and glenohumeral joints. The visualized ribs are intact. The visualized right lung is clear. Impression: 1. Anteromedial right glenohumeral dislocation. Follow-up radiographs recommended after reduction. 2. Moderate joint effusion and multiple small loose joint bodies. 3. Moderate acromioclavicular and glenohumeral osteoarthrosis. Report reported and signed by Pernell iWley on 09/12/2022 1127 Normal [facility] XR Chest 2 Views*on 09-13-19 23 XR Chest 2 Views* HISTORY: Recent fall , right rib pain. COMPARISON: None. FINDINGS: The lungs are symmetrically inflated. No focal airspace disease. No pneumothorax or pleural effusion. Heart size is within normal limits. No displaced rib fracture or other acute osseous abnormality. There are degenerative changes in the spine. IMPRESSION: No displaced rib fracture or acute cardiopulmonary abnormality identified. Report reported and signed by Pernell Wiley on 09/12/2022 1101 Normal [facility] XR CHEST 2 Von 09-05-2022 XR CHEST 2 V EXAMINATION: XR CHES T 2 V HISTORY: SHORTNESS OF BREATH COMPARISON: XR chest 09/02/2022 FINDINGS: LUNGS: No significant pulmonary parenchymal abnormalities. VASCULATURE: No increased pulmonary vasculature. PLEURA: No pneumothorax, effusion, or pleural thickening. CARDIAC: No cardiomegaly or cardiac silhouette abnormality. MEDIASTINUM: No visible mass or adenopathy. BONES: Anterior inferior dislocation of the humeral head from the glenoid. OTHER: Negative. IMPRESSION: 1. No acute cardiopulmonary process. 2. Right glenohumeral dislocation. Electronically authenticated by: ISAEL HANSEN Date: 2022-09-05 15:11 Normal [facility] XR KUB 1 VIEWon 09-05-2022 XR KUB 1 VIEW EXAMINATION: XR KUB 1 VIEW HISTORY: SHORTNESS OF BREATH ; left upper quadrant pain COMPARISON: No relevant comparison available. FINDINGS: BOWEL GAS PATTERN: [Stool scattered throughout the small and large bowel without abnormal dilation or suspicious fluid levels. CALCIFICATIONS: None significant. OTHER: Prior right hip replacement. Degenerative changes of lumbar spine. IMPRESSION: 1. No bowel obstruction or ileus. Enteritis cannot be excluded. Electronically authenticated by: ISAEL HANSEN Date: 2022-09-05 15:10 Normal [facility] AMYLASEon 09-03-2022 Amylase [Catalytic activity/Vol] 34 U/L Normal 25-115 [facility] Comment on above: Performed By: #### L IPA, CMP, CMADM, BNP, GRACIELA #### [facility] [address] [address] [address] Yonny Meza BNPon 09-03-2022 Natriuretic peptide B (Bld) [Mass/Vol] 241.0 pg/mL Normal <=1,800.0 [facility] Comment on above: Performed By: #### L IPA, CMP, CMADM, BNP, GRACIELA #### [facility] [address] [place] [address] Dr. Yonny Meza CARDIAC SRINIVASA ADMITon 023 CK [Catalytic activity/Vol] 154 U/L Normal 26-192 [facility] Comment on above: Performed By: #### L IPA, CMP, CMADM, BNP, GRACIELA #### [facility] [address] [address] [address] Yonny Meza CK.MB [Mass/Vol] 1.42 ng/mL Normal <=3.60 [facility] Comment on above: Performed By: #### L IPA, CMP, CMADM, BNP, GRACIELA #### [facility] [address] [place] [address] Dr. Yonny Meza HSTROP 13.9 pg/mL Normal 4.0-51.3 [facility] Comment on above: Result Comment: CUT- OFF POINTS HAVE BEEN ESTABLISHED BASED ON THE FOURTH UNIVERSAL DEFINITIONS OF MYOCARDIAL INFARCTION. THE UPPER REFERENCE LIMIT (URL) OF TROPONIN, DEFINED THE 99TH PERCENTILE OF cTnI DISTRIBUTION IN A REFERENCE POPULATION, HAS BEEN CONFIRMED THE DECISION THRESHOLD FOR IA DIAGNOSIS. Performed By: #### L IPA, CMP, CMADM, BNP, GRACIELA #### [facility] [address] [place] [address] Dr. Yonny Meza DARION 63 ng/mL Normal 9-82 [facility] Comment on above: Performed By: #### L IPA, CMP, CMADM, BNP, GRACIELA #### [facility] [address] [place] [address] Dr. Yonny Meza CBC AUTO DIFFon 09-03-2022 BASO # 0.0 103/ul Normal 0.0-0.1 [facility] Comment on above: Performed By: #### L IPA, CMP, CMADM, BNP, GRACIELA #### [facility] [address] [place] [address] Dr. Yonny Meza Basophils/100 WBC (Bld) 0.4 % Normal 0.2-2.0 [facility] Comment on above: Performed By: #### L IPA, CMP, CMADM, BNP, GRACIELA #### [facility] [address] [place] [address] Dr. Yonny Meza EO # 0.1 103/ul Normal 0.0-0.7 [facility] Comment on above: Performed By: #### L IPA, CMP, CMADM, BNP, GRACIELA #### [facility] [address] [place] [address] Dr. Yonny Meza Eosinophils/100 WBC (Bld) 1.6 % Normal 0.9-7.0 [facility] Comment on above: Performed By: #### L IPA, CMP, CMADM, BNP, GRACIELA #### [facility] [address] [place] [address] Dr. Yonny Meza Erythrocyte distribution width (RBC) [Ratio] 12.6 % Normal 11.0-15.0 [facility] Comment on above: Performed By: #### L IPA, CMP, CMADM, BNP, GRACIELA #### [facility] [address] [place] [address] Dr. Yonny Meza Hematocrit (Bld) [Volume fraction] 38.9 % Normal 36.0-48.0 [facility] Comment on above: Performed By: #### L IPA, CMP, CMADM, BNP, GRACIELA #### [facility] [address] [place] [address] Dr. Yonny Meza Hemoglobin (Bld) [Mass/Vol] 13.0 g/dL Normal 12.0-16.0 [facility] Comment on above: Performed By: #### L IPA, CMP, CMADM, BNP, GRACIELA #### [facility] [address] [place] [address] Dr. Yonny Meza IG # 0.02 10e3/ul Normal 0.00-0.03 [facility] Comment on above: Performed By: #### L IPA, CMP, CMADM, BNP, GRACIELA #### [facility] [address] [place] [address] Dr. Yonny Meza IG % 0.3 % Normal 0.0-0.5 [facility] Comment on above: Performed By: #### L IPA, CMP, CMADM, BNP, GRACIELA #### [facility] [address] [place] [address] Dr. Yonny Meza LYMPH # 2.0 103/ul Normal 1.2-3.8 [facility] Comment on above: Performed By: #### L IPA, CMP, CMADM, BNP, GRACIELA #### [facility] [address] [place] [address] Dr. Yonny Meza Lymphocytes/100 WBC (Bld) 25.3 % Normal 20.5-60.0 [facility] Comment on above: Performed By: #### L IPA, CMP, CMADM, BNP, GRACIELA #### [facility] [address] [place] [address] Dr. Yonny Meza MANUAL DIFF REQ NO Normal [facility] Comment on above: Performed By: #### L IPA, CMP, CMADM, BNP, GRACIELA #### [facility] [address] [place] [address] Dr. Yonny Meza MCH (RBC) [Entitic mass] 31.8 pg Normal 26.7-34.0 [facility] Comment on above: Performed By: #### L IPA, CMP, CMADM, BNP, GRACIELA #### [facility] [address] [place] [address] Dr. Yonny Meza MCHC (RBC) [Mass/Vol] 33.4 g/dL Normal 29.9-35.2 [facility] Comment on above: Performed By: #### L IPA, CMP, CMADM, BNP, GRACIELA #### [facility] [address] [place] [address] Dr. Yonny Meza MCV (RBC) [Entitic vol] 95.1 fL Normal 81.0-99.0 [facility] Comment on above: Performed By: #### L IPA, CMP, CMADM, BNP, GRACIELA #### [facility] [address] [place] [address] Dr. Yonny Meza MONO # 0.9 103/ul Critically high 0.3-0.8 [facility] Comment on above: Performed By: #### L IPA, CMP, CMADM, BNP, GRACIELA #### [facility] [address] [address] [address] Yonny Meza Monocytes/100 WBC (Bld) 11.5 % Normal 1.7-12.0 [facility] Comment on above: Performed By: #### L IPA, CMP, CMADM, BNP, GRACIELA #### [facility] [address] [place] [address] Dr. Yonny Meza NEUT # 4.8 103/ul Normal 1.4-6.5 [facility] Comment on above: Performed By: #### L IPA, CMP, CMADM, BNP, GRACIELA #### [facility] [address] [address] [address] Yonny Meza Neutrophils/100 WBC (Bld) 60.9 % Normal 43.0-75.0 [facility] Comment on above: Performed By: #### L IPA, CMP, CMADM, BNP, GRACIELA #### [facility] [address] [place] [address] Dr. Yonny Meza Platelet mean volume (Bld) [Entitic vol] 10.1 fL Normal 9.5-13.5 [facility] Comment on above: Performed By: #### L IPA, CMP, CMADM, BNP, GRACIELA #### [facility] [address] [place] [address] Dr. Yonny Meza PLT 252 103/ul Normal 150-450 [facility] Comment on above: Performed By: #### L IPA, CMP, CMADM, BNP, GRACIELA #### [facility] [address] [address] [address] Yonny Meza RBC 4.09 106/ul Critically low 4.20-5.40 [facility] Comment on above: Performed By: #### L IPA, CMP, CMADM, BNP, GRACIELA #### [facility] [address] [place] [address] Dr. Yonny Meza WBC 7.9 103/ul Normal 4.0-11.0 [facility] Comment on above: Performed By: #### L IPA, CMP, CMADM, BNP, GRACIELA #### [facility] [address] [address] ABD/PELVIS WO CONon 09-03 CT ABD/PELVIS WO CON EXAM: CT SCAN OF THE ABDOMEN AND PELVIS WITHOUT IV CONTRAST DATE OF EXAM: 09/02/2022 10:54 PM EDT HISTORY: SHORTNESS OF BREATH in a 76-year-old with abdominal pain. COMPARISON: None. TECHNIQUE: CT examination of the abdomen and pelvis with sagittal and coronal reformations was performed without intravenous contrast. CT dose lowering techniques were used, to include: automated exposure control, adjustment for patient size, and/or use of iterative reconstruction. CONTRAST: None. Note: The exam is limited because some types of pathology may not be adequately demonstrated due to lack of contrast enhancement. FINDINGS: Lower Chest: Lung bases demonstrate emphysematous changes with prominence of pulmonary vascularity. The heart is enlarged Free Air: None. Liver: Normal Gallbladder: Sludge is seen within the gallbladder. Common Bile Duct: Normal Pancreas: Normal Spleen: Multiple punctate calcifications are seen in the spleen. Adrenal Glands: Normal Kidneys: Right Kidney: Normal. Right Ureter: Evaluation of the distal ureter limited due to streak artifact from replaced right hip. Left Kidney: Normal. Left Ureter: Portions of the left ureter which are visualized measure within normal limits. GI Tract: Stomach: Stomach is distended with fluid. Small Bowel: Normal Appendix: No secondary signs for acute appendicitis. Large Bowel: There is moderate retention of stool in the large bowel. Diverticulosis demonstrated. Mesentery/Peritoneum: Normal Vasculature: Vascular calcifications are present. Lymph Nodes: Normal Abdominal Wall: Fat filled umbilical hernia demonstrated. Abdominal wall defect measures approximately 13.5 mm. The left abdominal wall just inferior to this umbilical hernia also demonstrates a fat filled lipoma area involving the abdominal wall musculature. This does not appear to be acute. Bladder: There is a foci of air within the bladder. Bladder is otherwise fully distended. Reproductive: Uterus is present but difficult to visualize secondary to streak artifact from replaced right hip. Musculoskeletal: Multilevel degenerative disc disease with vacuum disc phenomena. Free Fluid: None. IMPRESSION: 1. Diverticulosis. No CT evidence for acute diverticulitis. 2. Cholelithiasis. No evidence of acute cholecystitis. However, if clinically indicated, RUQ ultrasound or nuclear medicine hepatobiliary scan would help better delineate for acute cholecystitis. 3. Cardiomegaly incompletely imaged. 4. Groundglass opacities lung bases with bronchiectasis. Please correlate for viral pneumonia versus atelectasis. 5. Air within the fluid distended bladder. Please correlate for airforming bacteria versus any recent intervention such as catheterization. Electronically authenticated by: HATTIE OH Date: 2022-09-03 01:11 Normal [facility] ER URINE PROFILEon 3 Bilirubin Ql (U) Negative Normal NEGATIVE [facility] Comment on above: Performed By: #### L IPA, CMP, CMADM, BNP, GRACIELA #### [facility] [address] [address] [address] Yonny Meza Clarity (U) CLEAR Normal CLEAR [facility] Comment on above: Performed By: #### L IPA, CMP, CMADM, BNP, GRACIELA #### [facility] [address] [address] [address] Yonny Meza Color (U) LT. YELLOW Normal YELLOW [facility] Comment on above: Performed By: #### L IPA, CMP, CMADM, BNP, GRACIELA #### [facility] [address] [address] [address] Yonny Meza ERUAHD A micrscopic examina tion will be performed if indicated. Normal [facility] Comment on above: Performed By: #### L IPA, CMP, CMADM, BNP, GRACIELA #### [facility] [address] [address] [address] Yonny Meza Glucose Ql (U) Negative Normal NEGATIVE [facility] Comment on above: Performed By: #### L IPA, CMP, CMADM, BNP, GRACIELA #### [facility] [address] [address] [address] Yonny Meza Hemoglobin Ql (U) Negative Normal NEGATIVE [facility] Comment on above: Performed By: #### L IPA, CMP, CMADM, BNP, GRACIELA #### [facility] [address] [address] [address] Yonny Meza Ketones Ql (U) Negative Normal NEGATIVE [facility] Comment on above: Performed By: #### L IPA, CMP, CMADM, BNP, GRACIELA #### [facility] Laboratory [address] [address] [address] Yonny Meza LEUKOCYTES Negative Normal NEGATIVE [facility] Comment on above: Performed By: #### L IPA, CMP, CMADM, BNP, GRACIELA #### [facility] [address] [address] [address] Yonny Meza Nitrite Ql (U) Negative Normal NEGATIVE [facility] Comment on above: Performed By: #### L IPA, CMP, CMADM, BNP, GRACIELA #### [facility] [address] [address] [address] Yonny Meza pH (U) 7.0 [pH] Normal 5-9 [facility] Comment on above: Performed By: #### L IPA, CMP, CMADM, BNP, GRACIELA #### [facility] [address] [place] [address] Dr. Yonny Meza SPEC GRAVITY 1.015 Normal 1.005-<=1.0 25 [facility] Comment on above: Performed By: #### L IPA, CMP, CMADM, BNP, GRACIELA #### [facility] [address] [place] [address] Dr. Yonny Meza UA PROTEIN Negative Normal NEGATIVE/ TRACE [facility] Comment on above: Performed By: #### L IPA, CMP, CMADM, BNP, GRACIELA #### [facility] [address] [place] [address] Dr. Yonny Meza UR MICRO IND NOT INDICATED Normal [facility] Comment on above: Performed By: #### L IPA, CMP, CMADM, BNP, GRACIELA #### [facility] [address] [place] [address] Dr. Yonny Meza Urobilinogen Qn (U) 0.2 {Arnaud'U}/dL Normal 0.2 - 1.0 [facility] Comment on above: Performed By: #### L IPA, CMP, CMADM, BNP, GRACIELA #### [facility] [address] [place] [address] Dr. Yonny Meza LACTATE/LACTIC ACIDon 2022 Lactate [Moles/Vol] 2.3 mmol/L Critically high 0.4-2.0 [facility] Comment on above: Performed By: #### L ACT #### [facility] [address] [address] [address] Yonny Meza Lactate [Moles/Vol] 2.2 mmol/L Critically high 0.4-2.0 [facility] Comment on above: Performed By: #### L IPA, CMP, CMADM, BNP, GRACIELA #### [facility] [address] [address] [address] Yonny Meza LIPASEon 09-03-2022 Lipase [Catalytic activity/Vol] 88.0 U/L Normal 73.0-393.0 [facility] Comment on above: Performed By: #### L IPA, CMP, CMADM, BNP, GRACIELA #### [facility] [address] [place] [address] Dr. Yonny Meza PROF 14(COMP METB)on 023 Albumin [Mass/Vol] 3.3 g/dL Critically low 3.4-5.0 [facility] Comment on above: Performed By: #### L IPA, CMP, CMADM, BNP, GRACIELA #### [facility] [address] [address] [address] Yonny Meza Albumin/Globulin [Mass ratio] 0.9 {ratio} Normal [facility] Comment on above: Performed By: #### L IPA, CMP, CMADM, BNP, GRACIELA #### [facility] [address] [address] [address] Yonny Meza ALP [Catalytic activity/Vol] 122 U/L Critically high 46-116 [facility] Comment on above: Performed By: #### L IPA, CMP, CMADM, BNP, GRACIELA #### [facility] [address] [address] [address] Yonny Meza ALT [Catalytic activity/Vol] 21 U/L Normal 14-59 [facility] Comment on above: Performed By: #### L IPA, CMP, CMADM, BNP, GRACIELA #### [facility] [address] [address] [address] Yonny Meza Anion gap [Moles/Vol] 12.4 mmol/L Normal [facility] Comment on above: Performed By: #### L IPA, CMP, CMADM, BNP, GRACIELA #### [facility] [address] [place] [address] Dr. Yonny Meza AST [Catalytic activity/Vol] 24 U/L Normal 15-37 [facility] Comment on above: Performed By: #### L IPA, CMP, CMADM, BNP, GRACIELA #### [facility] [address] [place] [address] Dr. Yonny Meza Bilirubin [Mass/Vol] 0.4 mg/dL Normal 0.2-1.0 [facility] Comment on above: Performed By: #### L IPA, CMP, CMADM, BNP, GRACIELA #### [facility] [address] [place] [address] Dr. Yonny Meza Calcium [Mass/Vol] 8.7 mg/dL Normal 8.5-10.1 [facility] Comment on above: Performed By: #### L IPA, CMP, CMADM, BNP, GRACIELA #### [facility] [address] [place] [address] Dr. Yonny Meza Chloride [Moles/Vol] 105 mmol/L Normal 98-107 [facility] Comment on above: Performed By: #### L IPA, CMP, CMADM, BNP, GRACIELA #### [facility] [address] [place] [address] Dr. Yonny Meza CO2 [Moles/Vol] 28.0 mmol/L Normal 21.0-32.0 [facility] Comment on above: Performed By: #### L IPA, CMP, CMADM, BNP, GRACIELA #### [facility] [address] [place] [address] Dr. Yonny Meza Creatinine [Mass/Vol] 1.11 mg/dL Critically high 0.55-1.02 [facility] Comment on above: Performed By: #### L IPA, CMP, CMADM, BNP, GRACIELA #### [facility] [address] [place] [address] Dr. Yonny Meza EGFR-AF MICRONESIAN 58 mL/min/1.73m2 Critically low >=60 [facility] Comment on above: Performed By: #### L IPA, CMP, CMADM, BNP, GRACIELA #### [facility] [address] [address] [address] Yonny Meza EGFR-NON AF MICRONESIAN 48 mL/min/1.73m2 Critically low >=60 [facility] Comment on above: Performed By: #### L IPA, CMP, CMADM, BNP, GRACIELA #### [facility] [address] [place] [address] Dr. Yonny Meza Globulin (S) [Mass/Vol] 3.7 g/dL Normal [facility] Comment on above: Performed By: #### L IPA, CMP, CMADM, BNP, GRACIELA #### [facility] [address] [place] [address] Dr. Yonny Meza Glucose [Mass/Vol] 152 mg/dL Critically high 74-106 [facility] Comment on above: Performed By: #### L IPA, CMP, CMADM, BNP, GRACIELA #### [facility] [address] [place] [address] Dr. Yonny Meza Potassium [Moles/Vol] 3.4 mmol/L Critically low 3.5-5.1 [facility] Comment on above: Performed By: #### L IPA, CMP, CMADM, BNP, GRACIELA #### [facility] [address] [place] [address] Dr. Yonny Meza Protein [Mass/Vol] 7.0 g/dL Normal 6.4-8.2 [facility] Comment on above: Performed By: #### L IPA, CMP, CMADM, BNP, GRACIELA #### [facility] [address] [place] [address] Dr. Yonny Meza Sodium [Moles/Vol] 142 mmol/L Normal 136-145 [facility] Comment on above: Performed By: #### L IPA, CMP, CMADM, BNP, GRACIELA #### [facility] [address] [place] [address] Dr. Yonny Meza Urea nitrogen [Mass/Vol] 14.0 mg/dL Normal 7.0-18.0 [facility] Comment on above: Performed By: #### L IPA, CMP, CMADM, BNP, GRACIELA #### [facility] [address] [address] [address] Yonny Meza Urea nitrogen/Creatini ne [Mass ratio] 12.6 mg/mg Normal [facility] Comment on above: Performed By: #### L IPA, CMP, CMADM, BNP, GRACIELA #### [facility] [address] [address] [address] Yonny Meza PROTIMEon 09-03-2022 INR Coag (PPP) [Relative time] 1.05 {INR} Normal [facility] Comment on above: Performed By: #### L IPA, CMP, CMADM, BNP, GRACIELA #### [facility] [address] [place] [address] Dr. Yonny Meza INR GUIDELINES SEE BELOW Normal [facility] Comment on above: Result Comment: ASCENCION RED INR: 2.0 - 3.0 CONDITIONS NOT LISTED BELOW 2.5 - 3.5 FOR PROSTHETIC HEART VALVE REPLACEMENT 2.5 - 3.5 RECURRENT THROMBOSIS Performed By: #### L IPA, CMP, CMADM, BNP, GRACIELA #### [facility] [address] [place] [address] Dr. Yonny Meza PT Coag (PPP) [Time] 11.1 s Normal 9.0-11.6 [facility] Comment on above: Performed By: #### L IPA, CMP, CMADM, BNP, GRACIELA #### [facility] [address] [address] [address] Yonny Meza PTTon 09-03-2022 aPTT Coag (Bld) [Time] 26.7 s Normal 22.3-36.2 [facility] Comment on above: Performed By: #### L IPA, CMP, CMADM, BNP, GRACIELA #### [facility] [address] [place] [address] Dr. Yonny Meza XR CHEST 1 Von 09-03-2022 XR CHEST 1 V CHEST X-RAY HISTORY: Chest pain COMPARISON: CT shoulder right 04/17/2018. Chest x-ray 04/16/2018 TECHNIQUE: 1 view chest is submitted for review. FINDINGS: The lungs are hyperexpanded. No acute infiltrate or effusion. The cardiac silhouette is enlarged.. Pulmonary vascularity is unremarkable. Osseous structures appears to demonstrate a dislocated right humerus. However, evaluation is limited on this exam. IMPRESSION: 1. Cardiomegaly. 2. Question of a dislocated right humerus, incompletely imaged on this exam. Dedicated imaging of the right humerus is recommended for further evaluation. Electronically authenticated by: HATTIE [place] Date: 2022-09-03 00:08 Normal [facility] MAMM SCREEN 3D RON CADon 06-06-2022 MG MAMM SCREEN 3D RON CAD Patient: LUMA RIBEIRO Exam Date: 06/06/2022 : 1945 Gender:F Ordering : DR ROC STEELE M.D. Admission #: [id number] Family : Order #: [id number] CLICK HERE TO VIEW EXAM RADIOLOGY REPORT PROCEDURE: MAMMOGRAM SCREENING 3D BILATERAL CAD COMPARISON: MAMM DX 3D RT CAD, 05/03/2021. MAMM SCREEN 3D RON CAD, 01/12/2021. INDICATIONS: Screening mammography Calculator Name NCI Breast Cancer Risk Assessment Tool 5 Year Breast Cancer Risk 1.20% Lifetime Breast Cancer Risk 2.50% Personal Breast Cancer No Personal Ovarian Cancer No Treatments None Family Cancers Aunt-paternal with breast cancer at age 60. LOCATION: [facility] BREAST COMPOSITION: Scattered areas fibroglandular density. FINDINGS: DIAGNOSTIC CATEGORY 2--BENIGN FINDING. NO CHANGE FROM COMPARISON. Scattered benign-appearing nodules are present. Scattered benign-appearing calcifications are present. Scattered benign-appearing lymph nodes are present. RIGHT BREAST: No significant suspicious finding. LEFT BREAST: No significant suspicious finding. RECOMMENDATIONS: ROUTINE MAMMOGRAM AND CLINICAL EVALUATION IN 12 MONTHS. PLEASE NOTE: A NORMAL MAMMOGRAM DOES NOT EXCLUDE THE POSSIBILITY OF BREAST CANCER. A CLINICALLY SUSPICIOUS PALPABLE LUMP SHOULD BE BIOPSIED. Dictated by: Lisa Caballero MD on 06/07/2022 at 08:06 Approved by: Lisa Caballero MD on 06/07/2022 at 08:09 Normal [facility] No Panel Informationon 12-16 Please click on the link to view the study images [facility] Work Phone: Radiologyon 12-03-2020 XR Pelvis and Hip - left 2 Views Normal [facility] [employer] Phone: MRI Humerus w/wo Contraston 11-20-2020 MRI Humerus w/wo Contrast Normal [facility] Work Phone: Otheron 02-13-2020 Interpreted by: BONIFACIO WARE 15:34MRN: [id number] Name: LUMA RIBEIRO STUDY:HIP, UNILATERAL W/PELVIS WHEN PERFORMED 2-3 VIEWS; Right;02/13/2020 1:58 pm INDICATION:pain. 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 No acute bony abnormality orperiprosthetic fracture appreciated. Electronically signed by: TASIA BIRD 02/13/20 15:34 Normal [facility] [employer] Phone: Complete Blood Count + Diffe rentialon 01-30-2020 Basophils (Bld) [#/Vol] 0.04 {x10E9/L} See Below [facility] Work Phone: Comment on above: Reference Range: 0.0 0 - 0.10 Basophils/100 WBC (Bld) 0.2 % 0.0 - 2.0 [facility] Work Phone: Eosinophils (Bld) [#/Vol] 0.01 {x10E9/L} See Below [facility] Work Phone: Comment on above: Reference Range: 0.0 0 - 0.40 Eosinophils/100 WBC (Bld) 0.1 % 0.0 - 6.0 [facility] Work Phone: Erythrocyte distribution width (RBC) [Ratio] 13.1 % See Below [facility] Work Phone: Comment on above: Reference Range: 11. 5 - 14.5 Hematocrit (Bld) [Volume fraction] 34.8 % below low threshold See Below [facility] [place] Work Phone: [phone] Comment on above: Reference Range: 36. 0 - 46.0 Hemoglobin (Bld) [Mass/Vol] 11.3 g/dL below low threshold See Below [facility] [place] Work Phone: [phone] Comment on above: Reference Range: 12. 0 - 16.0 Lymphocytes (Bld) [#/Vol] 2.21 {x10E9/L} See Below [facility] [place] Work Phone: [phone] Comment on above: Reference Range: 0.8 0 - 3.00 Lymphocytes/100 WBC (Bld) 12.5 % See Below [facility] [place] Work Phone: [phone] Comment on above: Reference Range: 13. 0 - 44.0 MCHC (RBC) [Mass/Vol] 32.5 g/dL See Below [facility] Work Phone: [phone] Comment on above: Reference Range: 32. 0 - 36.0 MCV (RBC) [Entitic vol] 99 fL 80 - 100 [facility] Work Phone: [phone] Monocytes (Bld) [#/Vol] 1.82 {x10E9/L} above high threshold See Below [facility] [place] Work Phone: [phone] Comment on above: Reference Range: 0.0 5 - 0.80 Monocytes/100 WBC (Bld) 10.3 % 2.0 - 10.0 [facility] [place] Work Phone: [phone] Neutrophils/100 WBC (Bld) 76.3 % See Below [facility] [place] Work Phone: [phone] Comment on above: Reference Range: 40. 0 - 80.0 Platelets (Bld) [#/Vol] 234 {x10E9/L} 150 - 450 [facility] [place] Work Phone: [phone] RBC (Bld) [#/Vol] 3.52 {x10E12/L} below low threshold See Below [facility] Work Phone: [phone] Comment on above: Reference Range: 4.0 0 - 5.20 WBC (Bld) [#/Vol] 17.7 {x10E9/L} above high threshold 4.4 - 11.3 [facility] Work Phone: [phone] Complete Blood Count + Differential 0.6 % 0.0 - 0.9 [facility] Work Phone: [phone] Comment on above: Immature Granulocyte Count (IG) includes promyelocytes, myelocytes and metamyelocytes but does not include bands. Percent differential counts (%) should be interpreted in the context of the absolute cell counts (cells/L). Complete Blood Count + Differential 13.52 {x10E9/L} above high threshold See Below [facility] Work Phone: [phone] Comment on above: Reference Range: 1.6 0 - 5.50 Metabolic Panelon 01-30-2020 Anion gap [Moles/Vol] 8 mmol/L below low threshold 10 - 20 [facility] Work Phone: [phone] Calcium [Mass/Vol] 8.8 mg/dL 8.6 - 10.3 [facility] Work Phone: [phone] Chloride [Moles/Vol] 101 mmol/L 98 - 107 [facility] Work Phone: [phone] CO2 [Moles/Vol] 32 mmol/L 21 - 32 [facility] Work Phone: [phone] Creatinine [Mass/Vol] 1.00 mg/dL See Below [facility] Work Phone: [phone] Comment on above: Reference Range: 0.5 0 - 1.05 Glucose [Mass/Vol] 128 mg/dL above high threshold 74 - 99 [facility] Work Phone: Potassium [Moles/Vol] 4.2 mmol/L 3.5 - 5.3 -[place] [facility] Work Phone: Sodium [Moles/Vol] 137 mmol/L 136 - 145 [facility] Work Phone: Urea nitrogen [Mass/Vol] 14 mg/dL 6 - 23 -[place] [facility] Work Phone: Otheron 01-30-2020 65 {mL/min/1.73m2} >[address] [facility] Work Phone: Comment on above: CALCULATIONS OF TONE MATED GFR ARE PERFORMED USING THE MDRD STUDY EQUATION FOR THE IDMS-TRACEABLE CREATININE METHODS. CLIN CHEM 2007;53:766-72 54 {mL/min/1.73m2} Abnormal >[address] [facility] Work Phone: Otheron 01-29-2020 Interpreted by: LKTYHY19/01/20 15:21MRN: [id number] Name: GEMA LUMA STUDY:HIP, UNILATERAL W/PELVIS WHEN PERFORMED 2-3 VIEWS; 01/29/2020 12:25 pm INDICATION:s/p right ROSSANA. COMPARISON:01/16/2020 ORDERING CLINICIAN:TASIA BIRD FINDINGS:Pelvis and right hip, three views Interval right total hip arthroplasty noted without periprostheticfracture or lucency. There is no dislocation. IMPRESSION:Right total hip arthroplasty without immediate complicationsElectronically signed by: RAJIV 01/30/20 15:21 Normal -[place] [facility] Work Phone: XR Pelvis 1 or 2 views Please click on the link to view the study images Normal [facility] Work Phone: Coronavirus 2019 RNA by PCR, Screening Asymptomticon 01-27-2020 Coronavirus 2019 RNA by PCR, Screening Asymptomtic NOT DETECTED See Below [facility] Work Phone: Comment on above: SOURCE: Nasal, Nasop haryngealReference Range: Not DetectedThis assay is designed to detect the N, ORF1ab and/or S genes of SARS-CoV-2 via nucleic acid amplification. A Negative (NOT DETECTED) result does not preclude 2019-nCoV infection since the adequacy of sample collection and/or low viral burden may result in presence of viral nucleic acids below the clinical sensitivity of this test method. Negative (NOT DETECTED) result should not be used as the sole basis for treatment or other patient management decisions. Rather negative results should be combined with clinical observations, patient history, and epidemiological information to make patient management decisions.Fact sheet for providers: https://www.fda.gov/media/790702/downloadFact sheet for patients: https://www.fda.gov/media/497871/downloadThis test has received FDA Emergency Use Authorization (EUA) and has been verified by [facility] ([facility]). This test is only authorized for the duration of time that circumstances exist to justify the authorization of the emergency use of in vitro diagnostic tests for the detection of SARS-CoV-2 virus and/or diagnosis of COVID-19 infection under section 564(b)(1) of the Act, 21 U.S.C. 360bbb-3(b)(1), unless the authorization is terminated or revoked sooner. [facility] is certified under CLIA-88 as qualified to perform high complexity testing. Testing is performed in the [facility] laboratories located at [address] [place] [address]. Activated Partial Thrombopla stin Timeon 01-20-2020 aPTT Coag (PPP) [Time] 29 {sec} 25 - 35 [facility] Work Phone: Comment on above: THE APTT IS NO LONGE R USED FOR MONITORING UNFRACTIONATED HEPARIN THERAPY. FOR MONITORING HEPARIN THERAPY, USE THE HEPARIN ASSAY. Complete Blood Count + Diffe rentialon 01-20-2020 Basophils (Bld) [#/Vol] 0.04 {x10E9/L} See Below [facility] Work Phone: Comment on above: Reference Range: 0.0 0 - 0.10 Basophils/100 WBC (Bld) 0.5 % 0.0 - 2.0 [facility] Work Phone: [phone] Eosinophils (Bld) [#/Vol] 0.09 {x10E9/L} See Below [facility] Work Phone: Comment on above: Reference Range: 0.0 0 - 0.40 Eosinophils/100 WBC (Bld) 1.0 % 0.0 - 6.0 [facility] Work Phone: Erythrocyte distribution width (RBC) [Ratio] 12.9 % See Below [facility] Work Phone: Comment on above: Reference Range: 11. 5 - 14.5 Hematocrit (Bld) [Volume fraction] 44.6 % See Below [facility] Work Phone: [phone] Comment on above: Reference Range: 36. 0 - 46.0 Hemoglobin (Bld) [Mass/Vol] 14.5 g/dL See Below [facility] Work Phone: Comment on above: Reference Range: 12. 0 - 16.0 Lymphocytes (Bld) [#/Vol] 3.41 {x10E9/L} above high threshold See Below [facility] Work Phone: [phone] Comment on above: Reference Range: 0.8 0 - 3.00 Lymphocytes/100 WBC (Bld) 38.4 % See Below [facility] Work Phone: [phone] Comment on above: Reference Range: 13. 0 - 44.0 MCHC (RBC) [Mass/Vol] 32.5 g/dL See Below [facility] Work Phone: [phone] Comment on above: Reference Range: 32. 0 - 36.0 MCV (RBC) [Entitic vol] 100 fL 80 - 100 [facility] [place] Work Phone: Monocytes (Bld) [#/Vol] 0.81 {x10E9/L} above high threshold See Below [facility] Work Phone: Comment on above: Reference Range: 0.0 5 - 0.80 Monocytes/100 WBC (Bld) 9.1 % 2.0 - 10.0 [facility] Work Phone: Neutrophils (Bld) [#/Vol] 4.49 {x10E9/L} See Below [facility] Work Phone: [phone] Comment on above: Reference Range: 1.6 0 - 5.50 Neutrophils/100 WBC (Bld) 50.7 % See Below [facility] Work Phone: Comment on above: Reference Range: 40. 0 - 80.0 Platelets (Bld) [#/Vol] 261 {x10E9/L} 150 - 450 [facility] Work Phone: RBC (Bld) [#/Vol] 4.48 {x10E12/L} See Below [facility] Work Phone: Comment on above: Reference Range: 4.0 0 - 5.20 WBC (Bld) [#/Vol] 8.9 {x10E9/L} 4.4 - 11.3 [facility] Work Phone: [phone] Complete Blood Count + Differential 0.3 % 0.0 - 0.9 [facility] Work Phone: [phone] Comment on above: Immature Granulocyte Count (IG) includes promyelocytes, myelocytes and metamyelocytes but does not include bands. Percent differential counts (%) should be interpreted in the context of the absolute cell counts (cells/L). Fructosamine, Serumon 2019 Fructosamine [Moles/Vol] 265 umol/L 0-285 [facility] [place] Work Phone: Comment on above: Published reference interval for apparently healthy subjectsbetween age 20 and 60 is 205 - 285 umol/L and in a poorlycontrolled diabetic population is 228 - 563 umol/L with amean of 396 umol/L. Hematologyon 01-20-2020 INR Coag (PPP) [Relative time] 1.1 {INR} 0.9 - 1.1 -[facility] [place] Work Phone: PT Coag (PPP) [Time] 13.0 {sec} See Below [facility] Work Phone: Comment on above: Reference Range: 10. 1 - 13.3 Metabolic Panelon 01-20-2020 ALP [Catalytic activity/Vol] 100 U/L 33 - 136 [facility] Work Phone: Anion gap [Moles/Vol] 13 mmol/L 10 - 20 [facility] [place] Work Phone: Bilirubin [Mass/Vol] 0.6 mg/dL 0.0 - 1.2 [facility] Work Phone: Calcium [Mass/Vol] 9.7 mg/dL 8.6 - 10.3 [facility] [place] Work Phone: Chloride [Moles/Vol] 101 mmol/L 98 - 107 [facility] [place] Work Phone: CO2 [Moles/Vol] 32 mmol/L 21 - 32 [facility] [place] Work Phone: Creatinine [Mass/Vol] 1.01 mg/dL See Below [facility] Work Phone: [phone] Comment on above: Reference Range: 0.5 0 - 1.05 Glucose [Mass/Vol] 88 mg/dL 74 - 99 [facility] [place] Work Phone: Potassium [Moles/Vol] 3.9 mmol/L 3.5 - 5.3 [facility] [place] Work Phone: Protein [Mass/Vol] 7.6 g/dL 6.4 - 8.2 [facility] [place] [facility] Phone: Sodium [Moles/Vol] 142 mmol/L 136 - 145 -[facility] [place] Work Phone: Urea nitrogen [Mass/Vol] 15 mg/dL 6 - 23 -[facility] [place] Work Phone: Otheron 01-20-2020 100 1 [facility] [place] Work Phone: [phone] [facility] [place] [facility] Phone: [phone] [facility] [place] Work Phone: [phone] [facility] [place] Work Phone: -[phone] [facility] [place] Work Phone: [phone] [facility] Work Phone: Sinus rhythm with oc casional premature ventricular complexes [facility] Work Phone: [phone] [facility] [place] Work Phone: [email or web address]&Date=20-01-2020&Time=1 4%3a54%3a12%3a00&TestType=ECG &Site=11&OutputType=PDF&Ext=P DF -[facility] [place] Work Phone: [phone] [facility] [place] Work Phone: [phone] [facility] Work Phone: [phone] [facility] Work Phone: [phone] [facility] Work Phone: [phone] [facility] Work Phone: [phone] [facility] Work Phone: [phone] Albumin BCP dye [Mass/Vol] 4.4 g/dL 3.4 - 5.0 -[facility] Work Phone: [phone] With P-5'-P [Catalytic activity/Vol] 16 U/L 7 - 45 -[place] [facility] Work Phone: [phone] Comment on above: Patients treated wit h Sulfasalazine may generate falsely decreased results for ALT. AST With P-5'-P [Catalytic activity/Vol] 23 U/L 9 - 39 -[facility] Work Phone: [phone] {mL/min/1.73m2} >[address] [facility] Work Phone: [phone] Comment on above: CALCULATIONS OF TONE MATED GFR ARE PERFORMED USING THE MDRD STUDY EQUATION FOR THE IDMS-TRACEABLE CREATININE METHODS. CLIN CHEM 2007;53:766-72 54 {mL/min/1.73m2} Abnormal >[address] [facility] Phone: [phone] Urinalysison 01-20-2020 Appearance (U) HAZY CLEAR -[facility] Work Phone: [phone] Color (U) YELLOW See Below [facility] Work Phone: [phone] Comment on above: Reference Range: STR AW,YELLOW Glucose Ql (U) Negative NEGATIVE -[facility] Work Phone: [phone] Ketones Ql (U) Negative NEGATIVE -[place] [facility] Work Phone: Leukocyte esterase Test strip Ql (U) Negative NEGATIVE [facility] Work Phone: pH (U) 7.0 [pH] 5.0 - 8.0 -[place] [facility] Work Phone: Protein (U) [Mass/Vol] Negative NEGATIVE [facility] Work Phone: RBC (U) [#/Vol] Negative NEGATIVE [facility] Work Phone: Specific gravity (U) [Rel density] 1.[address] [facility] Work Phone: Comment on above: Reference Range: 1.0 05 - 1.035 Urinalysis Negative NEGATIVE [facility] Work Phone: Urinalysis 2.0 mg/dL above high threshold 0.0 - 1.9 [facility] Work Phone: Comment on above: Due to a manufacturi ng issue, low positive urobilinogen results may be falsely positive. Correlate with urine bilirubin and additional clinical/laboratory findings to assess the risk of hemolytic anemia or liver disease. If clinically indicated, repeat testing with an alternate method is available by contacting the laboratory within 24 hours..Some pigments and medications may cause a false positive urobilinogen. Otheron 01-16-2020 Interpreted by: AGNES ALVARADO01/16/20 13:42MRN: [id number] Name: LUMA RIBEIRO STUDY:HIP, UNILATERAL W/PELVIS WHEN PERFORMED 2-3 VIEWS; Right; 01/16/20201:39 pm INDICATION:pain. ORDERING CLINICIAN:HARSHAL ALVARADO FINDINGS:AP lateral right hip x-ray shows end-stage xiugcoxrifyoawzpcu-gr-dvsr arthrosis noted. 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 Electronically signed by: HARSHAL ALVARADO 01/16/20 13:42 Normal [facility] Work Phone: Vital Signs Date Time Vital Sign Value Performing Clinician Facility 05-07-2024 10:53-0500 Body height 157.5 cm Kamila Castillo AGRICULTURAL SYSTEMS SPECIALIST Work Phone: [facility] 05-07-2024 10:53-0500 Body mass index (BMI) [Ratio] 48.87 kg/m2 Kamila Castillo AGRICULTURAL SYSTEMS SPECIALIST Work Phone: [facility] 05-07-2024 10:53-0500 Body weight 121.2 kg Kamila Castillo AGRICULTURAL SYSTEMS SPECIALIST Work Phone: [facility] 05-07-2024 10:53-0500 Diastolic blood pressure 82 mm[Hg] Kamila Castillo AGRICULTURAL SYSTEMS SPECIALIST Work Phone: [facility] 05-07-2024 10:53-0500 Heart rate 88 /min Kamila Castillo AGRICULTURAL SYSTEMS SPECIALIST Work Phone: [facility] 05-07-2024 10:53-0500 Respiratory rate 18 /min Kamila Castillo AGRICULTURAL SYSTEMS SPECIALIST Work Phone: [facility] 05-07-2024 10:53-0500 SaO2% (BldA) [Mass fraction] 95 % Kamila Castillo AGRICULTURAL SYSTEMS SPECIALIST Work Phone: [facility] 05-07-2024 10:53-0500 Systolic blood pressure 130 mm[Hg] Kamila Castillo AGRICULTURAL SYSTEMS SPECIALIST Work Phone: [facility] 04-03-2024 08:32-0500 Body height 157.5 cm Kamila Castillo AGRICULTURAL SYSTEMS SPECIALIST Work Phone: [facility] 04-03-2024 08:32-0500 Body mass index (BMI) [Ratio] 49.6 kg/m2 Kamila Castillo AGRICULTURAL SYSTEMS SPECIALIST Work Phone: [facility] 04-03-2024 08:32-0500 Body weight 123.02 kg Kamila Castillo AGRICULTURAL SYSTEMS SPECIALIST Work Phone: [facility] 04-03-2024 08:32-0500 Diastolic blood pressure 80 mm[Hg] Kamila Castillo AGRICULTURAL SYSTEMS SPECIALIST Work Phone: [facility] 04-03-2024 08:32-0500 Heart rate 74 /min Kamila Bigg AGRICULTURAL SYSTEMS SPECIALIST Work Phone: [facility] 04-03-2024 08:32-0500 Respiratory rate 17 /min Kamila Bigg AGRICULTURAL SYSTEMS SPECIALIST Work Phone: [facility] 04-03-2024 08:32-0500 SaO2% (BldA) [Mass fraction] 98 % Kamila Bigg AGRICULTURAL SYSTEMS SPECIALIST Work Phone: [facility] 04-03-2024 08:32-0500 Systolic blood pressure 126 mm[Hg] Kamila [place] A[employer]ICULTURAL SYSTEMS SPECIALIST Work Phone: [facility] 03-05-2024 11:19-0500 Body height 157.5 cm Kamila Bigg AGRICULTURAL SYSTEMS SPECIALIST Work Phone: [facility] 03-05-2024 11:19-0500 Body mass index (BMI) [Ratio] 50.85 kg/m2 Kamila Bigg AGRICULTURAL SYSTEMS SPECIALIST Work Phone: [facility] 03-05-2024 11:19-0500 Body weight 126.1 kg Kamila [place] AGRICULTURAL SYSTEMS SPECIALIST Work Phone: [facility] 03-05-2024 11:19-0500 Diastolic blood pressure 76 mm[Hg] Kamila Bigg AGRICULTURAL SYSTEMS SPECIALIST Work Phone: [facility] 03-05-2024 11:19-0500 Heart rate 102 /min Kamila Bigg AGRICULTURAL SYSTEMS SPECIALIST Work Phone: [facility] 03-05-2024 11:19-0500 SaO2% (BldA) [Mass fraction] 98 % Kamila [place] AGRICULTURAL SYSTEMS SPECIALIST Work Phone: [facility] 03-05-2024 11:19-0500 Systolic blood pressure 134 mm[Hg] Kamila [place] AGRICULTURAL SYSTEMS SPECIALIST Work Phone: [facility] 02-22-2024 14:09-0400 Body height 157.5 cm Alex Tam DPM Work Phone: [facility] 02-22-2024 14:09-0400 Body mass index (BMI) [Ratio] 50.85 kg/m2 Alex Tam DPM Work Phone: [facility] 02-22-2024 14:09-0400 Body weight 126.1 kg Alex Tam DPM Work Phone: [facility] 02-22-2024 14:09-0400 Diastolic blood pressure 80 mm[Hg] Alex Tam DPM Work Phone: [facility] 02-22-2024 14:09-0400 Heart rate 82 /min Alex Tam DPM Work Phone: [facility] 02-22-2024 14:09-0400 Systolic blood pressure 126 mm[Hg] Alex Tam DPM Work Phone: [facility] 06-15-2023 14:42-0500 Body height 157.5 cm Alex Tam DPM Work Phone: [facility] 06-15-2023 14:42-0500 Body mass index (BMI) [Ratio] 50.48 kg/m2 Alex aTm DPM Work Phone: [facility] 06-15-2023 14:42-0500 Body weight 125.19 kg Alex Tam DPM Work Phone: [facility] 06-15-2023 14:42-0500 Diastolic blood pressure 82 mm[Hg] Alex Tam DPM Work Phone: [facility] 06-15-2023 14:42-0500 Heart rate 84 /min Alex Tam DPM Work Phone: [facility] 06-15-2023 14:42-0500 Systolic blood pressure 133 mm[Hg] Alex Brown DPM Work Phone: [facility] 06-01-2023 15:33-0500 Body height 157.5 cm Alex Tam DPM Work Phone: [facility] 06-01-2023 15:33-0500 Body mass index (BMI) [Ratio] 50.48 kg/m2 Alex Tam DPM Work Phone: [facility] 06-01-2023 15:33-0500 Body weight 125.19 kg Alex Tam DPM Work Phone: [facility] 06-01-2023 15:33-0500 Diastolic blood pressure 80 mm[Hg] Alex Tam DPM Work Phone: [facility] 06-01-2023 15:33-0500 Heart rate 79 /min Alex Tam DPM Work Phone: [facility] 06-01-2023 15:33-0500 Systolic blood pressure 130 mm[Hg] Alex Tam DPM Work Phone: [facility] 01-16-2020 15:36-0400 BMI (Body Mass Index) 46.35 kg/m2 Tasia Bronson [facility] Work Phone: 01-16-2020 15:36-0400 Body weight 122.47 kg Tasia Bronson [facility] Work Phone: 01-16-2020 15:36-0400 BSA (Body Surface Area) 2.[address] [facility] Work Phone: 01-16-2020 15:36-0400 Height 162.56 cm Tasia Bronson [facility] Work Phone: Encounters Encounter Date Encounter Type Care Provider Facility Start: 05-07-2024 End: 05-07-2024 Office outpatient visit 25 minutes Kamila Castillo NP Work Phone: [facility] Comment on above: Bronchitis (Primary Dx); Acute cough; Exudative age-related macular degeneration, left eye, with active choroidal neovascularization (CMS/HCC); Ankylosing spondylitis of thoracic region (CMS/HCC); Exudative age-related macular degeneration, right eye, with active choroidal neovascularization (CMS/HCC); Exudative age-related macular degeneration, bilateral, with active choroidal neovascularization (CMS/HCC); Morbid (severe) obesity due to excess calories (CMS/HCC); Body mass index (BMI) 45.0-49.9, adult (CMS/HCC) Start: 04-29-2024 End: 04-29-2024 ambulatory Mala Sapp Facility:[facility] Start: 04-15-2024 End: 04-16-2024 Refill Kamila Castillo AGRICULTURAL SYSTEMS SPECIALIST Work Phone: [facility] Comment on above: Primary insomnia Start: 04-04-2024 End: 04-04-2024 Orders Only Kamila Castillo AGRICULTURAL SYSTEMS SPECIALIST Work Phone: [facility] Comment on above: Acute pulmonary omid a (CMS/HCC) (Primary Dx); Hypokalemia Start: 04-03-2024 End: 04-03-2024 Bamboo flowsheet Kamila Castillo AGRICULTURAL SYSTEMS SPECIALIST Work Phone: [facility] Start: 04-03-2024 End: 04-03-2024 Bamboo flowsheet Kamila Castillo AGRICULTURAL SYSTEMS SPECIALIST Work Phone: [facility] Start: 04-03-2024 End: 04-03-2024 ambulatory KAMILA CASTILLO Not Available Start: 04-03-2024 End: 04-03-2024 Office outpatient visit 25 minutes Kamila Castillo AGRICULTURAL SYSTEMS SPECIALIST Work Phone: [facility] Comment on above: Acute cough (Primary Dx); Rib pain; Fall, initial encounter; Shortness of breath; Lumbosacral spondylosis without myelopathy; Pain of right hand; Right wrist pain; Acute non-recurrent sinusitis of other sinus Start: 04-03-2024 End: 04-03-2024 ambulatory KAMILA CASTILLO Not Available Start: 03-07-2024 End: 03-07-2024 Bamboo flowsheet Waqas Dugan DO Work Phone: [facility] Start: 03-07-2024 End: 03-07-2024 Bamboo flowsheet Waqas Dugan DO Work Phone: [facility] Start: 03-07-2024 End: 03-07-2024 Patient encounter procedure Bullchinedu Ritchie DO Work Phone: [facility] Comment on above: Carpal tunnel syndro me on left (Primary Dx) Start: 03-07-2024 End: 03-07-2024 ambulatory WAQAS DUGAN Not Available Start: 03-05-2024 End: 03-05-2024 Bamboo flowsheet Kamila Castillo AGRICULTURAL SYSTEMS SPECIALIST Work Phone: [facility] Start: 03-05-2024 End: 03-05-2024 Bamboo flowsheet Kamila Castillo AGRICULTURAL SYSTEMS SPECIALIST Work Phone: [facility] Start: 03-05-2024 End: 03-05-2024 Office outpatient visit 25 minutes Kamila Castillo AGRICULTURAL SYSTEMS SPECIALIST Work Phone: [facility] Comment on above: Cellulitis of finger of left hand (Primary Dx); Flu vaccine need; Numbness of hand; Encounter for screening mammogram for malignant neoplasm of breast; Lymphadenopathy; Axillary pain, left; Ankylosing spondylitis of thoracic region ([facility]/HCC) Start: 03-05-2024 End: 03-05-2024 ambulatory KAMILA CASTILLO Not Available Start: 02-29-2024 End: 02-29-2024 Shauna Steele MD Work Phone: [facility] Comment on above: 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 Start: 02-22-2024 End: 02-22-2024 Patient encounter procedure Alex Tam DPM Work Phone: [facility] Comment on above: Pain due to onychomy cosis of toenails of both feet (Primary Dx) Start: 02-22-2024 End: 02-22-2024 Bamboo flowsheet Alex Tam DPM Work Phone: [facility] Start: 02-22-2024 End: 02-22-2024 Bamboo flowsheet Alex Tam DPM Work Phone: [facility] Start: 02-22-2024 End: 02-22-2024 ambulatory ALEX Nolberto TAM Not Available Start: 01-29-2024 End: 01-29-2024 Shauna Steele MD Work Phone: [facility] Comment on above: Benign essential hyp ertension (CMS/HCC) Start: 12-14-2023 End: 12-14-2023 ambulatory ALEX Nolberto BROWN Not Available Start: 11-30-2023 End: 11-30-2023 ambulatory KAMILA Mcclure BIGG Not Available Start: 10-05-2023 End: 10-05-2023 ambulatory ALEX A BROWN Not Available Start: 09-12-2023 End: 09-12-2023 ambulatory KAMILA Mcclure BIGG Not Available Start: 07-27-2023 End: 07-27-2023 ambulatory ALEX A BROWN Not Available Start: 07-06-2023 End: 07-06-2023 ambulatory KAMILA Mcclure BIGG Not Available Start: 06-29-2023 End: 06-29-2023 ambulatory ALEX A BROWN Not Available Start: 06-27-2023 End: 06-27-2023 ambulatory KAMILA Ren BIGG Not Available Start: 06-15-2023 End: 06-15-2023 Office outpatient visit 15 minutes Alex Tam DPM Work Phone: [facility] Comment on above: Subungual exostosis of great toe (Primary Dx); Onychocryptosis; Toe pain, right; Toe pain, left Start: 06-15-2023 End: 06-15-2023 ambulatory ALEX Nolberto TAM Not Available Start: 06-15-2023 Chart abstracting Alex winkler DPM Work Phone: [facility] Start: 06-01-2023 End: 06-01-2023 Office outpatient visit 15 minutes Alex Tam DPM Work Phone: [facility] Comment on above: Subungual exostosis of great toe (Primary Dx); Onychocryptosis; Toe pain, right Start: 06-01-2023 End: 06-01-2023 ambulatory ALEX TAM Not Available Start: 05-18-2023 End: 05-18-2023 ambulatory ALEX TAM Not Available Start: 04-19-2023 End: 04-19-2023 ambulatory KAMILA CASTILLO Not Available Start: 10-04-2022 Patient encounter procedure [facility] Work Phone: [facility] Work Phone: Start: 10-04-[address] Roc Steele II Facility:[id number] Start: 09-05-2022 End: 09-05-[address] SARABJIT CORNEJO . Facility:[facility] Start: 09-03-2022 End: 09-03-2022 ambulatory SASHA DUTTA . Facility:[facility] Start: 06-06-2022 End: 06-07-[address] ROC STEELE Facility:[facility] Start: 12-16-2020 Patient encounter procedure Mone Weiss MD Work Phone: [facility] Work Phone: Start: 11-25-2020 Chart Update Tasia Crawford Work Phone: [facility] Work Phone: Start: 10-15-2020 Patient encounter procedure Carmen Bird MD Work Phone: [facility] Work Phone: Start: 02-13-2020 Patient encounter procedure Tasia Bird [facility] Work Phone: Start: 01-16-2020 Patient encounter procedure Tasia Bird [facility] [facility] Work Phone: Procedures Date Procedure Procedure Detail Performing Clinician Start: 03-07-2024 End: 03-07-2024 Needle emg ea extremty w/paraspinl area complete Waqas Dugan DO Work Phone: Implantation of join t prosthesis Tasia Bird Plan of Treatment Date Care Activity Detail Author Start: 07-05-2024 Medicare Annual Wellness (AWV) Medicare Annual Wellness (AWV) [facility] Start: 05-23-2024 End: 05-23-2024 Patient encounter procedure 05/23/2024 2:40 PM EST Procedure Visit [facility] [address] [place] [address] Alex Tam DPM [address] [address] [facility] Start: 05-14-2024 End: 05-14-2024 Patient encounter procedure 05/14/2024 11:00 AM EST Office Visit [facility] [address] [place] [address] Kamila Castillo, AGRICULTURAL SYSTEMS SPECIALIST [address] [place] [address] [facility] Start: 05-02-2024 End: 05-02-2024 Patient encounter procedure 05/02/2024 2:50 PM EST Procedure Visit [facility] [address] [place] [address] Alex Tam, DPM [address] [address] [facility] Start: 04-03-2024 End: 04-03-2025 XR Chest 2 Views [facility] Work Phone: Comment on above: Expected: 04/03/2024 , Expires: 04/03/2025 Start: 04-03-2024 End: 04-03-2025 XR Hand - right 3 Views [facility] Comment on above: Expected: 04/03/2024 , Expires: 04/03/2025 Start: 04-03-2024 End: 04-03-2024 Patient encounter procedure 04/03/2024 9:00 AM EST Office Visit [facility] [address] [place] [address] Kamila Castillo NP [address] [facility] [address] [place] [address] Arrived [facility] Comment on above: Arrived Start: 03-07-2024 End: 03-07-2024 Patient encounter procedure 03/07/2024 11:00 AM EST Procedure Visit [facility] [address] [facility] [place] [id number] Waqas Dugan, DO [address] [place] [address] Numbness of hand [facility] Comment on above: Numbness of hand Start: 03-05-2024 End: 05-05-2025 MG Breast - bilateral Screening Bilateral screening mammogram Imaging Routine Encounter for screening mammogram for malignant neoplasm of breast Expected: 03/05/2024, Expires: 05/05/2025 [facility] Work Phone: Comment on above: Expected: 03/05/2024 , Expires: 05/05/2025 Start: 03-05-2024 End: 03-05-2025 US Axilla US Axilla Imaging Routine Lymphadenopathy Axillary pain, left Expected: 03/05/2024, Expires: 03/05/2025 [facility] Comment on above: Expected: 03/05/2024 , Expires: 03/05/2025 Start: 03-05-2024 End: 03-05-2024 Patient encounter procedure [facility] Comment on above: Arrived Start: 02-29-2024 End: 02-29-2024 Patient encounter procedure 02/29/2024 2:00 PM EDT Office Visit [facility] [address] [facility] [address] [place] [id number] Kamila Castillo AGRICULTURAL SYSTEMS SPECIALIST [address] [facility] [address] [place] [address] [facility] Start: 02-22-2024 End: 02-22-2024 Patient encounter procedure [facility] Comment on above: Pain due to onychomy cosis of toenails of both feet (Primary Dx) Start: 01-31-2024 Influenza vaccination Influenza Vacc ine (#1) [facility] Comment on above: Postponed from 12/30 (Other Medical Reasons) Start: 12-31-2023 Influenza vaccination Influenza Vacc ine (#1) [facility] Start: 07-27-2023 End: 07-27-2023 Patient encounter procedure 07/27/2023 3:30 PM EDT Procedure Visit [facility] [address] [facility] [address] [place] [address] Alex Tam DPM [address] [address] [facility] Start: 06-30-2023 Medicare Annual Wellness (AWV) Medicare Annual Wellness (AWV) [facility] Start: 06-29-2023 End: 06-29-2023 Patient encounter procedure 06/29/2023 2:30 PM EST Office Visit [facility] [address] [facility] [address] [place] [address] Alex Tam DPM [address] [address] [facility] Start: 06-15-2023 End: 06-15-2023 Patient encounter procedure 06/15/2023 2:30 PM EST Office Visit [facility] [address] [address] Alex Tam DPM [address] [address] [facility] Start: 10-17-2022 NPV, Provider: Roc Alvarado, Status: Pen, Time: 1:30 PM NPV, Provider: Roc Alvarado, Status: Pen, Time: 1:30 PM [facility] [facility] Work [facility]: Start: 01-07-2021 FUV, Provider: Tasia Bird, Status: Pen, Time: 2:15 PM FUV, Provider: Tasia Bird, Status: Pen, Time: 2:15 PM [facility] Work Phone: Start: 12-03-2020 FUV, Provider: Tasia Bird, Status: Pen, Time: 12:45 PM FUV, Provider: Tasia Bird, Status: Pen, Time: 12:45 PM [facility] Work Phone: Immunizations Immunization Date Immunization Notes Care Provider [facility] 03-05-2024 Influenza, High-dose Seasonal, Quadrivalent, Preservative Free Kamila Castillo AGRICULTURAL SYSTEMS SPECIALIST Work Phone: [facility] 03-01-2023 Influenza, High-dose Seasonal, Quadrivalent, Preservative Free Alex Tam DPM Work Phone: [facility] 03-01-2023 influenza virus vacc ine, unspecified formulation Roc Steele MD Work Phone: [facility] 03-31-2022 Moderna Bivalent Pereira ster Vaccination Alex Yonatan DPM Work Phone: [facility] 03-23-2022 Influenza, High-dose Seasonal, Quadrivalent, Preservative Free Alex Yonatan DPM Work Phone: [facility] 01-28-2021 Influenza, Seasonal, Quadrivalent, Adjuvanted Alex Tam DPM Work Phone: [facility] 01-30-2020 influenza, injectabl e, quadrivalent, preservative free Alex Yonatan DPM Work Phone: [facility] 09-26-2019 zoster vaccine recombinant N todd Tam DPM Work Phone: [facility] 05-16-2019 zoster vaccine recombinant N todd Tam DPM Work Phone: [facility] 01-31-2018 influenza, high dose seasonal, preservative-free Alex Brown DPM Work Phone: [facility] 01-25-2017 influenza, high dose seasonal, preservative-free Alex Tam DPM Work Phone: [facility] 02-02-2016 influenza, injectabl e, quadrivalent, contains preservative Alex Tam DPM Work Phone: [facility] 02-07-2015 pneumococcal conjuga te vaccine, 13 valent Alex Tam DPM Work Phone: [facility] 01-30-2015 seasonal influenza, intradermal, preservative free Alex Tam DPM Work Phone: [facility] 02-07-2014 seasonal influenza, intradermal, preservative free Alex Tam DPM Work Phone: [facility] 12-11-2013 pneumococcal polysaccharide vaccine, 23 valent Alex Tam DPM Work Phone: [facility] 01-17-2012 zoster vaccine, live Zoyaleydi Tam DPM Work Phone: [facility] Payers Date Payer Category Payer Private Health Insurance [facility] [id number] 2022 Unknown 2008 Medicare [id number] 2008 Medicare [id number] 1959 Medicare [id number] 1959 Unknown [id number] 1946 Unknown [id number] .2.593 1946 Unknown [id number] [id number] .2.593 1946 Unknown [id number] 2.16.840.1.528833.3.579 .2.593 1946 Unknown [id number] [id number] .2.1068 1946 Unknown [id number] 2.16.840.1.430420.3.579 .2.1259 1946 Unknown [id number] 2.16.840.1.684552.3.579 .2.125 1946 Unknown [id number] 2.16.840.1.666547.3.579 .2.125 1946 Unknown [id number] 2.16.840.1.243457.3.579 .2.125 1946 Unknown [id number] 2.16.840.1.643340.3.579 .2.125 1946 Unknown [id number] 2.16.840.1.426654.3.579 .2.1259 1946 Unknown [id number] 2.16.840.1.453958.3.579 .2.125 1946 Unknown [id number] 2.16.840.1.313504.3.579 .2.1259 1946 Unknown [id number] .2.125 1945 Unknown [id number] .2.125 1945 Unknown [id number] .2.1259 1945 Unknown [id number] [id number] .2.1259 1945 Unknown [id number] .2.9 1945 Unknown [id number] [id number] .2.9 1945 Unknown [id number] [id number] .2.1258 1945 Unknown [id number] [id number] .2.1258 1945 Unknown [id number] .2.1258 1945 Unknown [id number] .2.1259 Social History Date Type Detail Facility Start: 11-25-2022 End: 07-06-2023 Never a smoker Never a smoker [facility] Work Phone: Start: 10-03-2022 Tobacco smoking stat [facility] Never smoked tobacco [facility] Start: 10-03-2022 Tobacco use and exposure Smoke less tobacco non-user [facility] Start: 06-01-2023 End: 05-07-2024 Alcohol intake Lifetime non-drinker (finding) [facility] Start: 11-25-2022 End: 07-06-2023 Humiliation, Afraid, Rape, and Kick questionnaire [HARK] [facility] Work Phone: Within the last year , have you been afraid of your partner or ex-partner? No [facility] Work Phone: Are you now , , , , never or living with a partner? [facility] How often to you hav e a drink containing alcohol? Monthly or less [facility] How many standard dr inks containing alcohol do you have on a typical day? 1 or 2 [facility] How often do you hav e 6 or more drinks on 1 occasion? Never [facility] How hard is it for y ou to pay for the very basics like food, housing, medical care, and heating Not hard at all [facility] Do you feel stress - tense, restless, nervous, or anxious, or unable to sleep at night because your mind is troubled all the time - these days [OSQ] Only a little [facility] (I/We) worried wheth er (my/our) food would run out before (I/we) got money to buy more. Never true [facility] Start: 1945 Sex Assigned At Not on file [facility] NEGATED: Highlighted [facility] [place] Work Phone: Functional Status Date Assessment Result Facility NEGATED: Highlighted row Functional performance Functional status health issues are not documented Disease [facility] [place] Work Phone: Mental Status Date Assessment Result Facility NEGATED: Highlighted row Cognitive function [Interpretation] Cognitive status health issues are not documented Disease [facility] [place] Work Phone: Clinical Notes 06-01-2023 to 05-07-2024 Kamila Castillo NP - 05/07/2024 11:00 AM ESTTelephone Encounter - MERARY Pemberton - 04/16/2024 5:16 PM ESTTelephone Encounter - MERARY Pemberton - 04/16/2024 5:16 PM EST Note Date & Type Note Facility 05-07-2024 History of Presen t illness Narrative Images from the original note were not included. Subjective Patient ID: Luma Ribeiro is a 78 y.o. female who presents for prescription renewal, for C pap. Luma Presents today for a RX renewal for her C pap. Paperwork was to be sent. URI This is a new problem. The current episode started 1 to 4 weeks ago. The problem has been gradually worsening. There has been no fever. Associated symptoms include congestion, coughing, headaches, rhinorrhea and sneezing. Treatments tried: steroid, tessalon Perles. The treatment provided no relief. Current Outpatient Medications on File Prior to Visit Medication Sig Dispense Refill ALPRAZolam (Xanax) 0.25 MG tablet Take 1 tablet (0.25 mg) by mouth 2 (two) times a day as needed for anxiety 60 tablet 0 amLODIPine (Norvasc) 5 MG tablet Take 1 tablet (5 mg) by mouth Daily 90 tablet 3 Calcium Carb-Cholecalciferol 600-20 MG-MCG chewable tablet calcium carb 600 mg(1,500 mg)-vit D3 400 unit-minerals chewable tablet Take by oral route. cyclobenzaprine (Flexeril) 10 MG tablet Take 10 mg by mouth 3 (three) times a day as needed for muscle spasms. furosemide (Lasix) 20 MG tablet Take 1 tablet (20 mg) by mouth Daily for 7 days 7 tablet 0 gabapentin (Neurontin) 300 MG capsule TAKE 1 CAPSULE BY MOUTH TWICE DAILY 200 capsule 3 [] HYDROcodone-acetaminophen (Bagdad) 5-325 MG tablet Take 1 tablet by mouth every 4 (four) hours if needed for severe pain 180 tablet 0 meloxicam (Mobic) 15 MG tablet TAKE 1 TABLET BY MOUTH ONCE DAILY 100 tablet 3 metoprolol succinate XL (Toprol-XL) 50 MG 24 hr tablet TAKE 1 TABLET BY MOUTH ONCE DAILY 90 tablet 3 Multiple Vitamin (Multi Vitamin) tablet 1 (one) time each day at the same time. nortriptyline (Pamelor) 10 MG capsule TAKE 3 CAPSULES BY MOUTH AT BEDTIME ONCE DAILY 270 capsule 3 pantoprazole (ProtoNix) 40 MG EC tablet TAKE 1 TABLET BY MOUTH ONCE DAILY 100 tablet 3 simvastatin (Zocor) 10 MG tablet TAKE 1 TABLET BY MOUTH ONCE DAILY 100 tablet 3 tiZANidine (Zanaflex) 4 MG tablet TAKE 1 TABLET BY MOUTH EVERY 8 HOURS NEEDED 270 tablet 0 zolpidem (Ambien) 10 MG tablet TAKE 1 TABLET BY MOUTH AT BEDTIME 90 tablet 0 No current facility-administered medications on file prior to visit. I have reviewed and reconciled the history and medication list with the patient today. Allergies Allergen Reactions Moxifloxacin Anaphylaxis Other Reaction(s): Tongue Swelling ; Trouble Breathing Ciprofloxacin Other Reaction(s): Unknown Clarithromycin Other Reaction(s): Unknown Sulfanilamide Other Reaction(s): Unkown Social History Tobacco Use Smoking status: Never Smokeless tobacco: Never Vaping Use Vaping status: Unknown Substance Use Topics Alcohol use: Never Drug use: Defer Family History Problem Relation Name Age of Onset Heart disease Mother Hypertension Mother Other (HTN [Other], heart disease) Mother Other (Aortic aneurysm,HTN, heart disease) Father Aortic aneurysm Father Hypertension Father Heart disease Father Past Medical History: Diagnosis Date Cardiomegaly Diverticulosis 2013 Edema Glaucoma ([facility]/HCC) Heart disease, unspecified History of lumbar surgery multiple times HTN (hypertension) (CMS/HCC) Hyperlipidemia (CMS/HCC) Insomnia Lumbago Lumbosacral spondylosis without myelopathy Myalgia, unspecified site Myositis Occlusion and stenosis of unspecified carotid artery without mention of cerebral infarction CARO (obstructive sleep apnea) Osteoarthrosis unspecified wheteher generalized or localized. unspecified site Osteopenia Paroxysmal supraventricular tachycardia ([facility]) Past Surgical History: Procedure Laterality Date AMB EPIDURAL STEROID INJECTION 2021 cervical neil ANKLE FRACTURE SURGERY 2018 CATARACT EXTRACTION Bilateral 2015 COLONOSCOPY 2013 HEART CATH 2016 IR INJECTION NERVE BLOCK 2018 and 2019 LUMBAR EPIDURAL INJECTION 2017 to 2021 LUMBAR TRANSFORAMINAL EPIDURAL STEROID INJECTION x7 NERVE BLOCK Left 03/26/2019 T12-L3 SD TOTAL HIP ARTHROPLASTY Left [employer] (01-29-2020 to 01-30-2020) RADIOFREQUENCY ABLATION Left 06/25/2019 L2-L5 REFRACTIVE SURGERY 2015 SHOULDER SURGERY left TOTAL KNEE ARTHROPLASTY Bilateral left 2002 right 2002 US ASPIRATION INJECTION INTERMEDIATE JOINT 12/16/2020 US ASPIRATION INJECTION INTERMEDIATE JOINT 12/16/2020 Visit Vitals Smoking Status Never Review of Systems Constitutional: Positive for fatigue. HENT: Positive for congestion, rhinorrhea and sneezing. Eyes: Negative. Respiratory: Positive for cough. Cardiovascular: Negative. Gastrointestinal: Negative. Genitourinary: Negative. Musculoskeletal: Negative. Neurological: Positive for headaches. Psychiatric/Behavioral: Negative. Endocrine: Negative. Objective Physical Exam Vitals reviewed. Constitutional: Appearance: Normal appearance. HENT: Head: Normocephalic. Nose: Mucosal edema and congestion present. Mouth/Throat: Mouth: Mucous membranes are moist. Pharynx: Posterior oropharyngeal erythema present. Cardiovascular: Rate and Rhythm: Normal rate and regular rhythm. Pulmonary: Breath sounds: Rhonchi present. Musculoskeletal: Cervical back: Neck supple. No tenderness. Lymphadenopathy: Cervical: No cervical adenopathy. Skin: General: Skin is warm and dry. Coloration: Skin is pale. Neurological: General: No focal deficit present. Mental Status: She is alert and oriented to person, place, and time. Psychiatric: Mood and Affect: Mood normal. Behavior: Behavior normal. Thought Content: Thought content normal. Judgment: Judgment normal. Assessment/Plan Diagnoses and all orders for this visit: Bronchitis - methylPREDNISolone (Medrol Dospak) 4 MG tablets; Follow schedule on package instructions - doxycycline (Vibra-Tabs) 100 MG tablet; Take 1 tablet (100 mg) by mouth in the morning and 1 tablet (100 mg) before bedtime. Do all this for 10 days. Take with a full glass of water and do not lie down for at least 30 minutes after.. Start the above medications as directed. Advised of potential side effects of the steroid. Patient is to take the steroid with food. Can take Tessalon Perles prn for cough. Increase water intake, get plenty of rest. Can take Tylenol prn for any discomfort or fever. No other anti-inflammatories while on steroid. Cough into elbow. Wash hands often. Advised patient that cough can linger with bronchitis. Follow up in our office if no improvement in one week. Acute cough - guaiFENesin-codeine (Robitussin-AC) 100-10 MG/5ML syrup; Take 5 mL by mouth 4 (four) times a day as needed for cough for up to 5 days You can use throat lozenges, cough drops, or warm tea with honey. Exudative age-related macular degeneration, left eye, with active choroidal neovascularization (CMS/HCC) This is a chronic medical condition that is stable since last assessment. No changes in treatment are suggested at this time. Ankylosing spondylitis of thoracic region (CMS/HCC) This is a chronic medical condition that is stable since last assessment. No changes in treatment are suggested at this time. Exudative age-related macular degeneration, right eye, with active choroidal neovascularization (CMS/HCC) This is a chronic medical condition that is stable since last assessment. No changes in treatment are suggested at this time. Exudative age-related macular degeneration, bilateral, with active choroidal neovascularization (CMS/HCC) This is a chronic medical condition that is stable since last assessment. No changes in treatment are suggested at this time. Morbid (severe) obesity due to excess calories (CMS/HCC) Body mass index (BMI) 45.0-49.9, adult (CMS/HCC) Discussed goal of BMI < 30. Advised on weight loss options. Encouraged diet and exercise. Discussed with patient appropriate lifestyle modification changes necessary for weight management, heart healthy eating and overall health promotion. Discussed minimizing high carb, high sugar, high sodium, portion control, and processed foods while making healthy choice replacements. Additionally discussed recommendations of 30 minutes of aerobic exercise at least 5 days per week, that includes, walking, and chair exercises. . Instructed importance of drinking adequate water consumption (if not on fluid restriction) with minimal sugar and caffiene. No follow-ups on file. documented in this encounter [facility] 04-16-2024 Telephone encount er Note OARRS reviewed, Rx sent into patient's pharmacy. [facility] 04-16-2024 Miscellaneous Notes Formattin g of this note might be different from the original. OARRS reviewed, Rx sent into patient's pharmacy. documented in this encounter [facility] 04-03-2024 History of Presen t illness Narrative Images from the original note were not included. Subjective Patient ID: Luma Ribeiro is a 78 y.o. female who presents for a fall 2 weeks ago. Pt had a fall 2 weeks ago. She is having significant pain on her right side. Difficulty with breathing.. Becomes SOB with activity. Chest Pain This is a new problem. The current episode started 1 to 4 weeks ago. The onset quality is sudden. The problem occurs constantly. The problem has been gradually worsening. The pain is present in the lateral region. The pain is at a severity of 8/10. The pain is severe. The quality of the pain is described as stabbing. The pain radiates to the upper back. Associated symptoms include back pain, a cough and shortness of breath. It is unknown what precipitates the cough. The cough is Productive (clear phelgm). Nothing relieves the cough. The cough is worsened by activity. The pain is aggravated by breathing, deep breathing, coughing, lifting and movement. Treatments tried: Bagdad, cough syrup, muscle relaxer. The treatment provided mild relief. Current Outpatient Medications on File Prior to Visit Medication Sig Dispense Refill ALPRAZolam (Xanax) 0.25 MG tablet Take 1 tablet (0.25 mg) by mouth 2 (two) times a day as needed for anxiety 60 tablet 0 amLODIPine (Norvasc) 5 MG tablet Take 1 tablet (5 mg) by mouth Daily 90 tablet 3 Calcium Carb-Cholecalciferol 600-20 MG-MCG chewable tablet calcium carb 600 mg(1,500 mg)-vit D3 400 unit-minerals chewable tablet Take by oral route. cyclobenzaprine (Flexeril) 10 MG tablet Take 10 mg by mouth 3 (three) times a day as needed for muscle spasms. gabapentin (Neurontin) 300 MG capsule TAKE 1 CAPSULE BY MOUTH TWICE DAILY 200 capsule 3 [] HYDROcodone-acetaminophen (Bagdad) 5-325 MG tablet Take 1 tablet by mouth every 4 (four) hours if needed for severe pain 180 tablet 0 meloxicam (Mobic) 15 MG tablet TAKE 1 TABLET BY MOUTH ONCE DAILY 100 tablet 3 metoprolol succinate XL (Toprol-XL) 50 MG 24 hr tablet TAKE 1 TABLET BY MOUTH ONCE DAILY 90 tablet 3 Multiple Vitamin (Multi Vitamin) tablet 1 (one) time each day at the same time. nortriptyline (Pamelor) 10 MG capsule TAKE 3 CAPSULES BY MOUTH AT BEDTIME ONCE DAILY 270 capsule 3 pantoprazole (ProtoNix) 40 MG EC tablet TAKE 1 TABLET BY MOUTH ONCE DAILY 100 tablet 3 simvastatin (Zocor) 10 MG tablet TAKE 1 TABLET BY MOUTH ONCE DAILY 100 tablet 3 tiZANidine (Zanaflex) 4 MG tablet TAKE 1 TABLET BY MOUTH EVERY 8 HOURS NEEDED Orally Three times a day as needed for 90 days zolpidem (Ambien) 10 MG tablet Take 1 tablet (10 mg) by mouth at bedtime 90 tablet 1 No current facility-administered medications on file prior to visit. I have reviewed and reconciled the history and medication list with the patient today. Allergies Allergen Reactions Moxifloxacin Anaphylaxis Other Reaction(s): Tongue Swelling ; Trouble Breathing Ciprofloxacin Other Reaction(s): Unknown Clarithromycin Other Reaction(s): Unknown Sulfanilamide Other Reaction(s): Unkown Social History Tobacco Use Smoking status: Never Smokeless tobacco: Never Substance Use Topics Alcohol use: Never Drug use: Defer Family History Problem Relation Name Age of Onset Heart disease Mother Hypertension Mother Other (HTN [Other], heart disease) Mother Other (Aortic aneurysm,HTN, heart disease) Father Aortic aneurysm Father Hypertension Father Heart disease Father Past Medical History: Diagnosis Date Cardiomegaly Diverticulosis 2012 Edema Glaucoma ([facility]/HCC) Heart disease, unspecified History of lumbar surgery multiple times HTN (hypertension) (CMS/HCC) Hyperlipidemia (CMS/HCC) Insomnia Lumbago Lumbosacral spondylosis without myelopathy Myalgia, unspecified site Myositis Occlusion and stenosis of unspecified carotid artery without mention of cerebral infarction CARO (obstructive sleep apnea) Osteoarthrosis unspecified wheteher generalized or localized. unspecified site Osteopenia Paroxysmal supraventricular tachycardia (CMS/HCC) Past Surgical History: Procedure Laterality Date AMB EPIDURAL STEROID INJECTION 2021 cervical neil ANKLE FRACTURE SURGERY 2018 CATARACT EXTRACTION Bilateral 2015 COLONOSCOPY 2013 HEART CATH 2016 IR INJECTION NERVE BLOCK 2018 and 2019 LUMBAR EPIDURAL INJECTION 2017 to 2021 LUMBAR TRANSFORAMINAL EPIDURAL STEROID INJECTION x7 NERVE BLOCK Left 03/26/2019 T12-L3 SD TOTAL HIP ARTHROPLASTY Left [employer] (01-29-2020 to 01-30-2020) RADIOFREQUENCY ABLATION Left 06/25/2019 L2-L5 REFRACTIVE SURGERY 2015 SHOULDER SURGERY left TOTAL KNEE ARTHROPLASTY Bilateral left 2002 right 2002 US ASPIRATION INJECTION INTERMEDIATE JOINT 12/16/2020 US ASPIRATION INJECTION INTERMEDIATE JOINT 12/16/2020 Visit Vitals Smoking Status Never Review of Systems Respiratory: Positive for cough and shortness of breath. Cardiovascular: Positive for chest pain. Musculoskeletal: Positive for back pain. Objective Physical Exam Vitals reviewed. Constitutional: Appearance: Normal appearance. She is obese. HENT: Head: Normocephalic and atraumatic. Right Ear: A middle ear effusion is present. Left Ear: A middle ear effusion is present. Nose: Congestion present. Right Turbinates: Swollen. Left Turbinates: Swollen. Mouth/Throat: Mouth: Mucous membranes are moist. Pharynx: Posterior oropharyngeal erythema present. Cardiovascular: Rate and Rhythm: Normal rate and regular rhythm. Pulmonary: Effort: Pulmonary effort is normal. Breath sounds: Normal breath sounds. Abdominal: General: Bowel sounds are normal. Musculoskeletal: Comments: Lateral thoracic tenderness Skin: General: Skin is warm and dry. Neurological: General: No focal deficit present. Mental Status: She is alert and oriented to person, place, and time. Psychiatric: Mood and Affect: Mood normal. Behavior: Behavior normal. Assessment/Plan Diagnoses and all orders for this visit: Acute cough - guaiFENesin-codeine (Virtussin A/C) 100-10 MG/5ML syrup; Take 5 mL by mouth 4 (four) times a day as needed for cough for up to 5 days - XR chest 2 views; Future Do not take cough syrup with pain medication as it can suppress your respiratory system. You can use cough drops, warm tea, etc to help with the cough Rib pain - XR chest 2 views; Future Await results of CXR Fall, initial encounter - XR chest 2 views; Future - XR hand 3+ views right; Future Pt has had therapy several times. She lost her balance. Encourage to use walker Shortness of breath - XR chest 2 views; Future Take rest periods to help with your breathing. Lumbosacral spondylosis without myelopathy - HYDROcodone-acetaminophen (Bagdad) 5-325 MG tablet; Take 1 tablet by mouth every 4 (four) hours if needed for severe pain Medication choice and dosage is appropriate for patient's current medical conditions. Patient will continue to be required to be seen in our office at least every three months for monitoring. At each follow up visit I will reassess the patient's need for the medication. Patient is to have this medication prescribed only through this office. Failure to follow the rules and regulations will result in tapering and discontinuation of medications if applicable. Patient verbalized understanding. OARRS Report was reviewed for this patient. Pain of right hand - XR hand 3+ views right; Future Await results Right wrist pain - XR hand 3+ views right; Future\ Await results Acute non-recurrent sinusitis of other sinus - cefdinir (Omnicef) 300 MG capsule; Take 1 capsule (300 mg) by mouth in the morning and 1 capsule (300 mg) before bedtime. Do all this for 10 days. Start the above as directed. Reviewed potential s/e with patient. Encouraged probiotic while on antibiotic. Increase water intake, get plenty of rest. Can take OTC allergy medication for symptomatic relief. Tylenol/Motrin prn. Follow up if no improvement in one week. No follow-ups on file. documented in this encounter [facility] 03-07-2024 Note Carpal tunnel syndro me, left, severe. Progressed substantially when compared to EDX evaluation in 2021. C8 radiculopathy, left, moderate. Progressed when compared to EDX evaluation in 2021 [facility] 03-07-2024 Note Carpal tunnel syndro me, left, severe. Progressed substantially when compared to EDX evaluation in 2021. C8 radiculopathy, left, moderate. Progressed when compared to EDX evaluation in 2021 [facility] 03-07-2024 History of Presen t illness Narrative Images from the original note were not included. Reason for Appointment: EMG Patient: Luma Ribeiro : 1945 EMG Computer: [employer] Referring Physician: Kamila Castillo CNP EMG: PABLO automotive drivability technician: Jimmy Gibson RT(R) Office Location: [place] Reason for EMG: c/o numbness/tingling in left hand/forearm especially in 2nd & 3rd digits, weakness in left hand. No hx of DM. Not on blood thinners. Comments: Procedure was explained to the patient who expressed understanding. Patient appeared to have tolerated the test well despite some discomfort due to the nature of the test. documented in this encounter [facility] 03-05-2024 History of Presen t illness Narrative Images from the original note were not included. Subjective Patient ID: Luma Ribeiro is a 78 y.o. female who presents for Follow-up and Hypertension. AND LEFT ARM PAIN /NUMBNESS Luma is in today for a medication follow up on her hydrocodone. States its working well and keeps her moving. Pain medication helps with her pain. Hypertension Patient is here for follow-up of elevated blood pressure. Cardiac symptoms: none. Patient denies chest pain, claudication, exertional chest pressure/discomfort, irregular heart beat, lower extremity edema, near-syncope, orthopnea, palpitations, and paroxysmal nocturnal dyspnea. Cardiovascular risk factors: advanced age (older than 55 for men, 65 for women), hypertension, and obesity (BMI >= 30 kg/m2). 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 The current episode started more than 1 year ago. The problem is unchanged. The problem is controlled. There are no associated agents to hypertension. Risk factors for coronary artery disease include dyslipidemia, family history and post-menopausal state. Treatments tried: Amlodipine. The current treatment provides significant improvement. There are no compliance problems. Back Pain This is a chronic problem. The current episode started more than 1 year ago. The problem occurs constantly. The problem has been gradually worsening since onset. The pain is present in the lumbar spine. The quality of the pain is described as stabbing. The pain does not radiate. The pain is at a severity of 8/10. The pain is severe. The pain is The same all the time. The symptoms are aggravated by sitting, standing, lying down, bending and twisting. Stiffness is present All day. Associated symptoms include leg pain. Risk factors include sedentary lifestyle, obesity, menopause and lack of exercise. She has tried analgesics, heat, ice, NSAIDs and muscle relaxant for the symptoms. The treatment provided mild relief. Current Outpatient Medications on File Prior to Visit Medication Sig Dispense Refill ALPRAZolam (Xanax) 0.25 MG tablet Take 1 tablet (0.25 mg) by mouth 2 (two) times a day as needed for anxiety 60 tablet 0 amLODIPine (Norvasc) 5 MG tablet Take 1 tablet (5 mg) by mouth Daily 90 tablet 3 Calcium Carb-Cholecalciferol 600-20 MG-MCG chewable tablet calcium carb 600 mg(1,500 mg)-vit D3 400 unit-minerals chewable tablet Take by oral route. cyclobenzaprine (Flexeril) 10 MG tablet Take 10 mg by mouth 3 (three) times a day as needed for muscle spasms. gabapentin (Neurontin) 300 MG capsule TAKE 1 CAPSULE BY MOUTH TWICE DAILY 200 capsule 3 HYDROcodone-acetaminophen (Bagdad) 5-325 MG tablet Take 1 tablet by mouth every 4 (four) hours if needed for severe pain 180 tablet 0 meloxicam (Mobic) 15 MG tablet TAKE 1 TABLET BY MOUTH ONCE DAILY 100 tablet 3 metoprolol succinate XL (Toprol-XL) 50 MG 24 hr tablet TAKE 1 TABLET BY MOUTH ONCE DAILY 90 tablet 3 Multiple Vitamin (Multi Vitamin) tablet 1 (one) time each day at the same time. nortriptyline (Pamelor) 10 MG capsule TAKE 3 CAPSULES BY MOUTH AT BEDTIME ONCE DAILY 270 capsule 3 pantoprazole (ProtoNix) 40 MG EC tablet TAKE 1 TABLET BY MOUTH ONCE DAILY 100 tablet 3 simvastatin (Zocor) 10 MG tablet TAKE 1 TABLET BY MOUTH ONCE DAILY 100 tablet 3 tiZANidine (Zanaflex) 4 MG tablet TAKE 1 TABLET BY MOUTH EVERY 8 HOURS NEEDED Orally Three times a day as needed for 90 days zolpidem (Ambien) 10 MG tablet Take 1 tablet (10 mg) by mouth at bedtime 90 tablet 1 [DISCONTINUED] HYDROcodone-acetaminophen (Bagdad) 5-325 MG tablet Take 1 tablet by mouth every 4 (four) hours if needed for severe pain 180 tablet 0 No current facility-administered medications on file prior to visit. I have reviewed and reconciled the history and medication list with the patient today. Allergies Allergen Reactions Moxifloxacin Anaphylaxis Other Reaction(s): Tongue Swelling ; Trouble Breathing Ciprofloxacin Other Reaction(s): Unknown Clarithromycin Other Reaction(s): Unknown Sulfanilamide Other Reaction(s): Unkown Social History Tobacco Use Smoking status: Never Smokeless tobacco: Never Substance Use Topics Alcohol use: Never Drug use: Defer Family History Problem Relation Name Age of Onset Heart disease Mother Hypertension Mother Other (HTN [Other], heart disease) Mother Other (Aortic aneurysm,HTN, heart disease) Father Aortic aneurysm Father Hypertension Father Heart disease Father Past Medical History: Diagnosis Date Cardiomegaly Diverticulosis 2012 Edema Glaucoma (CMS/HCC) Heart disease, unspecified History of lumbar surgery multiple times HTN (hypertension) (CMS/HCC) Hyperlipidemia (CMS/HCC) Insomnia Lumbago Lumbosacral spondylosis without myelopathy Myalgia, unspecified site Myositis Occlusion and stenosis of unspecified carotid artery without mention of cerebral infarction CARO (obstructive sleep apnea) Osteoarthrosis unspecified wheteher generalized or localized. unspecified site Osteopenia Paroxysmal supraventricular tachycardia (CMS/HCC) Past Surgical History: Procedure Laterality Date AMB EPIDURAL STEROID INJECTION 2021 cervical neil ANKLE FRACTURE SURGERY 2018 CATARACT EXTRACTION Bilateral 2015 COLONOSCOPY 2013 HEART CATH 2016 IR INJECTION NERVE BLOCK 2018 and 2019 LUMBAR EPIDURAL INJECTION 2017 to 2021 LUMBAR TRANSFORAMINAL EPIDURAL STEROID INJECTION x7 NERVE BLOCK Left 03/26/2019 T12-L3 SD TOTAL HIP ARTHROPLASTY Left [employer] (01-29-2020 to 01-30-2020) RADIOFREQUENCY ABLATION Left 06/25/2019 L2-L5 REFRACTIVE SURGERY 2015 SHOULDER SURGERY left TOTAL KNEE ARTHROPLASTY Bilateral left 2002 right 2003 US ASPIRATION INJECTION INTERMEDIATE JOINT 12/16/2020 US ASPIRATION INJECTION INTERMEDIATE JOINT 12/16/2020 Visit Vitals Ht 5' 2 BMI 50.85 kg/m Smoking Status Never BSA 2.35 m Review of Systems Constitutional: Negative. HENT: Negative. Eyes: Negative. Respiratory: Negative. Cardiovascular: Negative. Gastrointestinal: Negative. Genitourinary: Negative. Musculoskeletal: Positive for back pain. Left arm pain, decreased ROM, inability to make a fist Skin: Left fourth finger cellulitis. Red and warm Neurological: Negative. Psychiatric/Behavioral: Negative. All other systems reviewed and are negative. Objective Physical Exam Vitals reviewed. Constitutional: Appearance: Normal appearance. HENT: Head: Normocephalic. Nose: Nose normal. Mouth/Throat: Mouth: Mucous membranes are moist. Pharynx: Oropharynx is clear. Eyes: Conjunctiva/sclera: Conjunctivae normal. Cardiovascular: Rate and Rhythm: Normal rate and regular rhythm. Pulmonary: Effort: Pulmonary effort is normal. Breath sounds: Normal breath sounds. Abdominal: General: Bowel sounds are normal. Palpations: Abdomen is soft. Musculoskeletal: Left shoulder: Tenderness present. Decreased strength. Left upper arm: Normal. Left elbow: Normal. Left forearm: Normal. Left wrist: Normal. Left hand: Tenderness present. Decreased range of motion. Decreased strength. Decreased sensation. Arms: Comments: Axillary discomfort upon palpation Skin: General: Skin is warm and dry. Findings: Erythema present. Comments: 4th digit left hand increased warmth and erythema Neurological: General: No focal deficit present. Mental Status: She is alert and oriented to person, place, and time. Psychiatric: Mood and Affect: Mood normal. Behavior: Behavior normal. Assessment/Plan Diagnoses and all orders for this visit: Cellulitis of finger of left hand - cephalexin (Keflex) 500 MG capsule; Take 1 capsule (500 mg) by mouth in the morning and 1 capsule (500 mg) in the evening and 1 capsule (500 mg) before bedtime. Do all this for 7 days. Take all of ATB until gone. Drink plenty of fluids. You could eat some yogurt to help prevent diarrhea from the ATB. If there is no improvement, come back to the office for further treatment. Flu vaccine need - Influenza, high-dose seasonal, quadrivalent, PF ([id number]) (Fluzone High Dose [place] 0.7mL dose) Tolerated injection without difficulty Numbness of hand - Ambulatory referral to Neurology; Future Await results of EMG Encounter for screening mammogram for malignant neoplasm of breast - Bilateral screening mammogram; Future Await results of mammogram Lymphadenopathy - US Axilla; Future Await results of ultrasound Axillary pain, left - US Axilla; Future Await results of ultrasound No follow-ups on file. documented in this encounter [facility] 02-29-2024 Telephone encount er Note OARRS reviewed, Rx sent into patient's pharmacy. [facility] 02-29-2024 Miscellaneous Notes Formattin g of this note might be different from the original. OARRS reviewed, Rx sent into patient's pharmacy. Hydrocodone 325 DDM IN [place] She had an appt today for a med follow up with kamila but had to change it due to her not being in. She said she has about 6 pills left. She did reschedule her med follow up for next Monday. documented in this encounter [facility] 02-29-2024 Telephone encount er Note Hydrocodone 325 DDM IN [place] She had an appt today for a med follow up with kamila but had to change it due to her not being in. She said she has about 6 pills left. She did reschedule her med follow up for next Monday. [facility] 01-29-2024 Telephone encount er Note Amlodipine sent [facility] 01-29-2024 Miscellaneous Notes Formattin g of this note might be different from the original. Amlodipine sent documented in this encounter [facility] 06-15-2023 History of Presen t illness Narrative Patient: Luma Ribeiro : 1945 PCP: Roc Steele MD SUBJECTIVE Patient who presents today 14 d s/p permanent nail avulsion to the right hallux Pt states that they have been following all post op instructions and have been taking antibiotic as prescribed. Pt denies n/f/v/c and has negative pain at post op site with negative drainage. Pt presents today for post operative follow up. Patient also has history of subungual exostosis to the right hallux and still has continued pain to the right hallux Patient also presents today with new complaints of pain to the lateral aspect of the lateral left hallux and denies drainage but states it is painful with ambulation in shoe gear Allergies: Allergies Allergen Reactions Moxifloxacin Anaphylaxis Other Reaction(s): Tongue Swelling ; Trouble Breathing Ciprofloxacin Other Reaction(s): Unknown Clarithromycin Other Reaction(s): Unknown Sulfanilamide Other Reaction(s): Unkown Past Medical History: Past Medical History: Diagnosis Date Cardiomegaly Diverticulosis 2013 Edema Glaucoma ([facility]) Heart disease, unspecified History of lumbar surgery multiple times HTN (hypertension) ([facility]) Hyperlipidemia ([facility]) Insomnia Lumbago Lumbosacral spondylosis without myelopathy Myalgia, unspecified site Myositis Occlusion and stenosis of unspecified carotid artery without mention of cerebral infarction CARO (obstructive sleep apnea) Osteoarthrosis unspecified wheteher generalized or localized. unspecified site Osteopenia Paroxysmal supraventricular tachycardia Medications: Current Outpatient Medications: ALPRAZolam (Xanax) 0.25 MG tablet, Take 0.25 mg by mouth 2 (two) times a day as needed., Disp: , Rfl: amLODIPine (Norvasc) 5 MG tablet, TAKE 1 TABLET BY MOUTH ONCE DAILY, Disp: 100 tablet, Rfl: 4 amoxicillin (Amoxil) 500 MG capsule, Take all 4 tablets 1 hour by mouth prior to procedure., Disp: 4 capsule, Rfl: 1 Calcium Carb-Cholecalciferol 600-20 MG-MCG chewable tablet, calcium carb 600 mg(1,500 mg)-vit D3 400 unit-minerals chewable tablet Take by oral route., Disp: , Rfl: Constulose 10 GM/15ML solution, TAKE 30 ML BY MOUTH TWICE DAILY FOR 3 DAYS, Disp: , Rfl: cyclobenzaprine (Flexeril) 10 MG tablet, Take 10 mg by mouth 3 (three) times a day as needed for muscle spasms., Disp: , Rfl: docusate sodium (Colace) 100 MG capsule, 1 (one) time each day at the same time., Disp: , Rfl: gabapentin (Neurontin) 300 MG capsule, TAKE 1 CAPSULE BY MOUTH TWICE DAILY for 90, Disp: , Rfl: meloxicam (Mobic) 15 MG tablet, TAKE 1 TABLET BY MOUTH ONCE DAILY, Disp: 90 tablet, Rfl: 3 metoprolol succinate XL (Toprol-XL) 50 MG 24 hr tablet, TAKE 1 TABLET BY MOUTH ONCE DAILY for 90, Disp: , Rfl: Multiple Vitamin (Multi Vitamin) tablet, 1 (one) time each day at the same time., Disp: , Rfl: nortriptyline (Pamelor) 10 MG capsule, TAKE 3 CAPSULES BY MOUTH AT BEDTIME ONCE DAILY, Disp: 270 capsule, Rfl: 3 pantoprazole (ProtoNix) 40 MG EC tablet, TAKE 1 TABLET BY MOUTH ONCE DAILY for 90, Disp: , Rfl: plecanatide (Trulance) tablet tablet, Take 1 tablet (3 mg) by mouth in the morning., Disp: 30 tablet, Rfl: 11 simvastatin (Zocor) 10 MG tablet, TAKE 1 TABLET BY MOUTH ONCE DAILY for 90, Disp: , Rfl: tiZANidine (Zanaflex) 4 MG tablet, TAKE 1 TABLET BY MOUTH EVERY 8 HOURS NEEDED Orally Three times a day as needed for 90 days, Disp: , Rfl: zolpidem (Ambien) 10 MG tablet, Take 1 tablet (10 mg) by mouth at bedtime, Disp: 90 tablet, Rfl: 1 Social History: Social History Socioeconomic History Marital status: Spouse name: Not on file Number of children: Not on file Years of education: Not on file Highest education level: Not on file Occupational History Not on file Tobacco Use Smoking status: Never Smokeless tobacco: Never Substance and Sexual Activity Alcohol use: Never Drug use: Defer Sexual activity: Not on file Other Topics Concern Not on file Social History Narrative Not on file Social Determinants of Health Financial Resource Strain: Low Risk (11/25/2022) Overall Financial Resource Strain (CARDIA) Difficulty of Paying Living Expenses: Not hard at all Food Insecurity: No Food Insecurity (11/25/2022) Hunger Vital Sign Worried About Running Out of Food in the Last Year: Never true Ran Out of Food in the Last Year: Never true Transportation Needs: No Transportation Needs (11/25/2022) PRAPARE - Transportation Lack of Transportation (Medical): No Lack of Transportation (Non-Medical): No Physical Activity: Inactive (11/25/2022) Exercise Vital Sign Days of Exercise per Week: 0 days Minutes of Exercise per Session: 0 min Stress: No Stress Concern Present (11/25/2022) [employer] - Occupational Stress Questionnaire Feeling of Stress : Only a little Social Connections: Moderately Isolated (11/25/2022) Social Connection and Isolation Panel [NHANES] Frequency of Communication with Friends and Family: More than three times a week Frequency of Social Gatherings with Friends and Family: Once a week Attends Mosque Services: Never Active Member of Clubs or Organizations: No Attends Club or Organization Meetings: Never Marital Status: Intimate Partner Violence: Not At Risk (11/25/2022) Humiliation, Afraid, Rape, and Kick questionnaire Fear of Current or Ex-Partner: No Emotionally Abused: No Physically Abused: No Sexually Abused: No Housing Stability: Low Risk (11/25/2022) Housing Stability Vital Sign Unable to Pay for Housing in the Last Year: No Number of Places Lived in the Last Year: 1 Unstable Housing in the Last Year: No ROS: GI: denies loose or watery stool on antibiotic Musculoskeletal: Positive generalized arthritis to joints and denies loss of strength. Positive history of total knee replacements and hip replacements and recent history with right ankle ORIF fracture Cardiovascular: denies CP, palpitations, irregular rhythms OBJECTIVE LE EXAM: DERM: Right hallux nail bed has dry bed with negative erythema Distal right hallux dorsal bony prominence to distal distal phalanx right hallux Lateral left hallux has rubor with negative drainage and slight erythema VASC: Positive palpable pedal pulses bilaterally NEURO: Gross sensation intact to bilateral feet ORTHO: Minimal palpation right hallux Discussed proper foot care with patient today. Debride nails in length and thickness digits 1 through 10 Positive pain on palpation to distal dorsal right hallux Positive palpation to the lateral left hallux ASSESSMENT 1. Subungual exostosis of great toe 2. Onychocryptosis 3. Toe pain, right PLAN Pt to d/c abx. Patient to continue with OTC oral anti - inflammatories as needed for pain. Pt to keep DSD on area of interest while in shoegear, otherwise may expose to air in a clean environment. Discussed conservative and surgical treatment options for patient today including postoperative time frame and surgical procedure in detail. Patient may continue with conservative treatments including [id number] anti-inflammatories and other treatments suggested today. Patient may want to be scheduled for surgical intervention in the near future. Patient have the right hallux subungual exostectomy with the lateral left hallux partial permanent nail avulsion in the near future Alex Tam DPM documented in this encounter [facility] 06-01-2023 History of Presen t illness Narrative Patient: Luma Ribeiro : 1945 PCP: Roc Steele MD SUBJECTIVE Patient also has some complaints to the distal aspect of her right hallux nail and toe. She states she has had pain is irritation in shoe gear and points to the distal aspect of her right hallux prior diagnosis of subungual exostosis to the right hallux She also has complaints of pain to the right great toenail has had issues with rubbing on shoe with negative drainage but states she has had nail removed in the past with some regrowth and like nail to be removed in total permanent nail avulsion and has taken prophylactic antibiotics prior to procedure today Allergies: Allergies Allergen Reactions Moxifloxacin Anaphylaxis Other Reaction(s): Tongue Swelling ; Trouble Breathing Ciprofloxacin Other Reaction(s): Unknown Clarithromycin Other Reaction(s): Unknown Sulfanilamide Other Reaction(s): Unkown Past Medical History: Past Medical History: Diagnosis Date Cardiomegaly Diverticulosis 2012 Edema Glaucoma (CMS/HCC) Heart disease, unspecified History of lumbar surgery multiple times HTN (hypertension) (CMS/HCC) Hyperlipidemia ([facility]) Insomnia Lumbago Lumbosacral spondylosis without myelopathy Myalgia, unspecified site Myositis Occlusion and stenosis of unspecified carotid artery without mention of cerebral infarction CARO (obstructive sleep apnea) Osteoarthrosis unspecified wheteher generalized or localized. unspecified site Osteopenia Paroxysmal supraventricular tachycardia Medications: Current Outpatient Medications: ALPRAZolam (Xanax) 0.25 MG tablet, Take 0.25 mg by mouth 2 (two) times a day as needed., Disp: , Rfl: amLODIPine (Norvasc) 5 MG tablet, TAKE 1 TABLET BY MOUTH ONCE DAILY, Disp: 100 tablet, Rfl: 4 amoxicillin (Amoxil) 500 MG capsule, Take all 4 tablets 1 hour by mouth prior to procedure., Disp: 4 capsule, Rfl: 1 Calcium Carb-Cholecalciferol 600-20 MG-MCG chewable tablet, calcium carb 600 mg(1,500 mg)-vit D3 400 unit-minerals chewable tablet Take by oral route., Disp: , Rfl: Constulose 10 GM/15ML solution, TAKE 30 ML BY MOUTH TWICE DAILY FOR 3 DAYS, Disp: , Rfl: cyclobenzaprine (Flexeril) 10 MG tablet, Take 10 mg by mouth 3 (three) times a day as needed for muscle spasms., Disp: , Rfl: docusate sodium (Colace) 100 MG capsule, 1 (one) time each day at the same time., Disp: , Rfl: gabapentin (Neurontin) 300 MG capsule, TAKE 1 CAPSULE BY MOUTH TWICE DAILY for 90, Disp: , Rfl: meloxicam (Mobic) 15 MG tablet, TAKE 1 TABLET BY MOUTH ONCE DAILY, Disp: 90 tablet, Rfl: 3 metoprolol succinate XL (Toprol-XL) 50 MG 24 hr tablet, TAKE 1 TABLET BY MOUTH ONCE DAILY for 90, Disp: , Rfl: Multiple Vitamin (Multi Vitamin) tablet, 1 (one) time each day at the same time., Disp: , Rfl: nortriptyline (Pamelor) 10 MG capsule, TAKE 3 CAPSULES BY MOUTH AT BEDTIME ONCE DAILY, Disp: 270 capsule, Rfl: 3 pantoprazole (ProtoNix) 40 MG EC tablet, TAKE 1 TABLET BY MOUTH ONCE DAILY for 90, Disp: , Rfl: plecanatide (Trulance) tablet tablet, Take 1 tablet (3 mg) by mouth in the morning., Disp: 30 tablet, Rfl: 11 simvastatin (Zocor) 10 MG tablet, TAKE 1 TABLET BY MOUTH ONCE DAILY for 90, Disp: , Rfl: tiZANidine (Zanaflex) 4 MG tablet, TAKE 1 TABLET BY MOUTH EVERY 8 HOURS NEEDED Orally Three times a day as needed for 90 days, Disp: , Rfl: zolpidem (Ambien) 10 MG tablet, Take 1 tablet (10 mg) by mouth at bedtime, Disp: 90 tablet, Rfl: 1 Social History: Social History Socioeconomic History Marital status: Spouse name: Not on file Number of children: Not on file Years of education: Not on file Highest education level: Not on file Occupational History Not on file Tobacco Use Smoking status: Never Smokeless tobacco: Never Substance and Sexual Activity Alcohol use: Never Drug use: Defer Sexual activity: Not on file Other Topics Concern Not on file Social History Narrative Not on file Social Determinants of Health Financial Resource Strain: Low Risk (11/25/2022) Overall Financial Resource Strain (CARDIA) Difficulty of Paying Living Expenses: Not hard at all Food Insecurity: No Food Insecurity (11/25/2022) Hunger Vital Sign Worried About Running Out of Food in the Last Year: Never true Ran Out of Food in the Last Year: Never true Transportation Needs: No Transportation Needs (11/25/2022) PRAPARE - Transportation Lack of Transportation (Medical): No Lack of Transportation (Non-Medical): No Physical Activity: Inactive (11/25/2022) Exercise Vital Sign Days of Exercise per Week: 0 days Minutes of Exercise per Session: 0 min Stress: No Stress Concern Present (11/25/2022) [employer] - Occupational Stress Questionnaire Feeling of Stress : Only a little Social Connections: Moderately Isolated (11/25/2022) Social Connection and Isolation Panel [NHANES] Frequency of Communication with Friends and Family: More than three times a week Frequency of Social Gatherings with Friends and Family: Once a week Attends Mosque Services: Never Active Member of Clubs or Organizations: No Attends Club or Organization Meetings: Never Marital Status: Intimate Partner Violence: Not At Risk (11/25/2022) Humiliation, Afraid, Rape, and Kick questionnaire Fear of Current or Ex-Partner: No Emotionally Abused: No Physically Abused: No Sexually Abused: No Housing Stability: Low Risk (11/25/2022) Housing Stability Vital Sign Unable to Pay for Housing in the Last Year: No Number of Places Lived in the Last Year: 1 Unstable Housing in the Last Year: No ROS: Gastrointestinal: denies abdominal pain, ulcers, or changes in appetite or bowel habits Musculoskeletal: Positive generalized arthritis to joints and denies loss of strength. Positive history of total knee replacements and hip replacements and recent history with right ankle ORIF fracture Cardiovascular: denies CP, palpitations, irregular rhythms OBJECTIVE LE EXAM: DERM: Elongated thick partial nail to the right hallux with negative drainage. Distal right hallux dorsal bony prominence to distal distal phalanx right hallux VASC: Positive palpable pedal pulses bilaterally NEURO: Gross sensation intact to bilateral feet ORTHO: Positive pain on palpation to right hallux nail Positive pain on palpation to distal dorsal right hallux ASSESSMENT 1. Subungual exostosis of great toe 2. Onychocryptosis 3. Toe pain, right PLAN Perfomed TPN avulsion to the right toenail. Informed pt of risks/ benefits of procedure including infection,reoccurance,pain, bleeding. Pt consents. 3cc of xylocaine 2% plain injected into the affected digit and tournicut applied to affected digit for 3 minutes. The affected toe was prepped/draped in a sterile manner and the offending nail border removed and 3 phenol applications of 30 seconds a peice to nail matrix. Alcohol flush applied and tournicut released with prompt hyperemic response. Patient was given a prescription for an antibiotic Discussed conservative and surgical treatment options for patient today including postoperative time frame and surgical procedure in detail. Patient may continue with conservative treatments including [id number] anti-inflammatories and other treatments suggested today. Patient may want to be scheduled for surgical intervention in the near future. Discussed surgical intervention of subungual exostectomy to distal right hallux in near future and patient would like to have procedure in the near future in surgical environment and will discuss on follow-up as well for possible scheduling Discussed condition to the distal aspect of the right great toe and discussed treatment options including surgical excision and patient may consider in the future and may consider removal of nail in the near future as well with prophylactic antibiotic given in case patient decides have done in the near future Alex Tam DPM documented in this encounter [facility] Healthcare Evaluation note Diagnosis Subungual exostosis of great toe- Primary Onychocryptosis Ingrowing nail Toe pain, right Pain in soft tissues of limb [facility] Diagnosis Subungual exostosis of great toe- Primary Onychocryptosis Ingrowing nail Toe pain, right Pain in soft tissues of limb Toe pain, left Pain in soft tissues of limb [facility]* Diagnosis Pain due to onychomycosis of toenails of both feet- Primary [facility]* Diagnosis Lumbosacral spondylosis without myelopathy [facility]* Diagnosis Cellulitis of finger of left hand- Primary Flu vaccine need Numbness of hand Disturbance of skin sensation Encounter for screening mammogram for malignant neoplasm of breast Lymphadenopathy Enlargement of lymph nodes Axillary pain, left Ankylosing spondylitis of thoracic region (CMS/HCC) [facility] Diagnosis Carpal tunnel syndrome on left- Primary Carpal tunnel syndrome [facility]* Diagnosis Acute cough- Primary Rib pain Unspecified chest pain Fall, initial encounter Shortness of breath Lumbosacral spondylosis without myelopathy Pain of right hand Right wrist pain Pain in joint, forearm Acute non-recurrent sinusitis of other sinus [facility]* Diagnosis Acute pulmonary edema (CMS/HCC)- Primary Unspecified acute edema of lung Hypokalemia Hypopotassemia [facility]* Diagnosis Primary insomnia Persistent disorder of initiating or maintaining sleep [facility]* Diagnosis Benign essential hypertension (CMS/HCC) Essential hypertension, benign [facility] Diagnosis Bronchitis- Primary Bronchitis, not specified as acute or chronic Acute cough Exudative age-related macular degeneration, left eye, with active choroidal neovascularization (CMS/HCC) Ankylosing spondylitis of thoracic region (CMS/HCC) Exudative age-related macular degeneration, right eye, with active choroidal neovascularization (CMS/HCC) Exudative age-related macular degeneration, bilateral, with active choroidal neovascularization (CMS/HCC) Morbid (severe) obesity due to excess calories ([facility]) Body mass index (BMI) 45.0-49.9, adult (CMS/HCC) [facility] NarrativeLuma is a 75-year-old female patient of Dr. Bird who is here for ultrasound-guided right intraarti cular shoulder injection. She has a history of pain and discomfort. She was seen and evaluated and referred to me for first lifetime intraarticular shoulder injection, which the patient accepts.-[place] [facility] Work Phone: History of Present illness Narrative* New Patient Visit: * CC: Right shoulder pain, anterior dislocation * HPI: 76-year-old female presents here today with complaints of chronic pain and discomfort to the right shoulder. She was recently seen and evaluated in the hospital where a CT scan demonstrated anterior medial dislocation of her glenohumeral joint. Subsequently she was asked to follow-up with orthopedics after outpatient CT scan dedicated to the shoulder was performed by her primary care team. She presents here today for further evaluation. She previously was under the care of Dr. Bonifacio Bird for her right hip. Additionally I have seen the patient and met her before providing her a steroid injection 2 years prior to this right shoulder. She states a history of multiple falls over the last 2 to 3 years. She denies any new or recent fall or injury. States she has had significant pain discomfort to this right shoulder with limited range of motion and strength, often having to utilize her left arm to move her right upper extremity. She states pain but denies any numbness tingling or burning. Has no pain about the distal aspect of the humerus elbow forearm or wrist. * Review of Systems, Past Medical History, Social History, and Family History documented and initialed on the patient information form dated 10/04/2022. * Physical Exam: * GENERAL: Patient is awake, alert, and oriented to person place and time. Patient appears well nourished and well kept. Affect Calm, Not Acutely Distressed. * HEENT: Normocephalic, Atraumatic, EOMI * CARDIOVASCULAR: Hemodynamically stable. * RESPIRATORY: Normal respirations with unlabored breathing. * NEURO: Gross sensation intact to the upper extremities bilaterally. * Extremity: Right shoulder exam: On palpation there is obvious and visible palpable defect and deformity with a anterior medial shoulder dislocation. Patient has minimal tenderness to palpation at theglenohumeral joint, has more pain discomfort around the midportion of the humerus. She has no pain at the elbow. 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 Distal pulses and sensation are intact. Limited forward flexion to about 25 degrees lateral abduction to about 15 unable to perform any external rotation but internal he can get to the small of her back. Herexam does not allow for much of a true Neer's Shelby or Gooding's test. * Diagnostics: See dictated report from today, previous outside CT scan report of the humerus reviewed, and is available in the [facility] chart. * Procedure: None * Assessment: Chronic shoulder dislocation, history of massive rotator cuff tear * Plan: Had a nice discussion with the patient and the at the bedside, we will offer her a comfortable sling if she would like, otherwise we will have the patient follow-up with Dr. Eulogio Reyes planned reverse shoulder replacement. Patient was agreeable to this. I discussed that at this time given the unknown chronicity of this shoulder dislocation it is not worth it to try to numb up and try to get ankle to put her arm back in place as it would likely come right back out. Patient wasagreeable to just allowing rest for now. She was not interested in reducing it or having her go to the ER. I think this is very reasonable given the circumstances with the end game being a shoulder replacement. Given the fact that she has no neurologic phenomenon, we will presume this to be a chronic stable dislocation of the right shoulder. Additionally the patient was encouraged to bring her CTscan to assist the surgical team with management strategy options. No evidence for any humeral fracture here today, there are multiple calcific nodular densities throughout the the medial portion of the humerus proximally, however they appear to be in the soft tissues, and not directly attached to the periosteum. There is no obvious mention of significant abnormal findings on the patient's CT scan report reviewed in [facility] chart Other than the anterior medial dislocation and other chronic degenerative changes. * At the conclusion of the visit there were no further questions by the patient/family regarding their plan of care. Patient was instructed to call or return with any issues, questions, or concerns regarding their injury and/or treatment plan described above. * This note was prepared using voice recognition software. The details of this note are correct and have been reviewed, and corrected to the best of my ability. Some grammatical areas may persist related to the Dragon software * Taniya Canchola MD * Office: * . [facility] Work Phone: History of Present illness Narrative* Alex Arvizu Yonatan, DPM - 02/22/2024 2:50 PM EDT Patient: Luma Ribeiro : 1945 PCP: Roc Steele MD SUBJECTIVE Patient presents today with a CC of elongated, thick nails. Pt states nails have been elongated and thick for many years and cause pain with ambulation in shoegear. Pt has tried previous treatment with minimal relief. Pt presents today for nail care and treatment. Allergies: Allergies Allergen Reactions Moxifloxacin Anaphylaxis Other Reaction(s): Tongue Swelling ; Trouble Breathing Ciprofloxacin Other Reaction(s): Unknown Clarithromycin Other Reaction(s): Unknown Sulfanilamide Other Reaction(s): Unkown Past Medical History: Past Medical History: Diagnosis Date Cardiomegaly Diverticulosis 2013 Edema Glaucoma (CMS/HCC) Heart disease, unspecified History of lumbar surgery multiple times HTN (hypertension) (CMS/HCC) Hyperlipidemia (CMS/HCC) Insomnia Lumbago Lumbosacral spondylosis without myelopathy Myalgia, unspecified site Myositis Occlusion and stenosis of unspecified carotid artery without mention of cerebral infarction CARO (obstructive sleep apnea) Osteoarthrosis unspecified wheteher generalized or localized. unspecified site Osteopenia Paroxysmal supraventricular tachycardia (CMS/HCC) Medications: Current Outpatient Medications: ALPRAZolam (Xanax) 0.25 MG tablet, Take 1 tablet (0.25 mg) by mouth 2 (two) times a day as needed for anxiety, Disp: 60 tablet, Rfl: 0 amLODIPine (Norvasc) 5 MG tablet, Take 1 tablet (5 mg) by mouth Daily, Disp: 90 tablet, Rfl: 3 Calcium Carb-Cholecalciferol 600-20 MG-MCG chewable tablet, calcium carb 600 mg(1,500 mg)-vit D3 400 unit-minerals chewable tablet Take by oral route., Disp: , Rfl: cyclobenzaprine (Flexeril) 10 MG tablet, Take 10 mg by mouth 3 (three) times a day as needed for muscle spasms., Disp: , Rfl: gabapentin (Neurontin) 300 MG capsule, TAKE 1 CAPSULE BY MOUTH TWICE DAILY, Disp: 200 capsule, Rfl:3 meloxicam (Mobic) 15 MG tablet, TAKE 1 TABLET BY MOUTH ONCE DAILY, Disp: 100 tablet, Rfl: 3 metoprolol succinate XL (Toprol-XL) 50 MG 24 hr tablet, TAKE 1 TABLET BY MOUTH ONCE DAILY, Disp: 90tablet, Rfl: 3 Multiple Vitamin (Multi Vitamin) tablet, 1 (one) time each day at the same time., Disp: , Rfl: nortriptyline (Pamelor) 10 MG capsule, TAKE 3 CAPSULES BY MOUTH AT BEDTIME ONCE DAILY, Disp: 270 capsule, Rfl: 3 pantoprazole (ProtoNix) 40 MG EC tablet, TAKE 1 TABLET BY MOUTH ONCE DAILY, Disp: 100 tablet, Rfl: 3 simvastatin (Zocor) 10 MG tablet, TAKE 1 TABLET BY MOUTH ONCE DAILY, Disp: 100 tablet, Rfl: 3 tiZANidine (Zanaflex) 4 MG tablet, TAKE 1 TABLET BY MOUTH EVERY 8 HOURS NEEDED Orally Three times a day as needed for 90 days, Disp: , Rfl: zolpidem (Ambien) 10 MG tablet, Take 1 tablet (10 mg) by mouth at bedtime, Disp: 90 tablet, Rfl: 1 Social History: Social History Socioeconomic History Marital status: Spouse name: Not on file Number of children: Not on file Years of education: Not on file Highest education level: Not on file Occupational History Not on file Tobacco Use Smoking status: Never Smokeless tobacco: Never Substance and Sexual Activity Alcohol use: Never Drug use: Defer Sexual activity: Not on file Other Topics Concern Not on file Social History Narrative Not on file Social Drivers of Health Financial Resource Strain: Low Risk (11/25/2022) Overall Financial Resource Strain (CARDIA) Difficulty of Paying Living Expenses: Not hard at all Food Insecurity: No Food Insecurity (11/25/2022) Hunger Vital Sign Worried About Running Out of Food in the Last Year: Never true Ran Out of Food in the Last Year: Never true Transportation Needs: No Transportation Needs (11/25/2022) PRAPARE - Transportation Lack of Transportation (Medical): No Lack of Transportation (Non-Medical): No Physical Activity: Inactive (11/25/2022) Exercise Vital Sign Days of Exercise per Week: 0 days Minutes of Exercise per Session: 0 min Stress: No Stress Concern Present (11/25/2022) [employer] - Occupational Stress Questionnaire Feeling of Stress : Only a little Social Connections: Moderately Isolated (11/25/2022) Social Connection and Isolation Panel [NHANES] Frequency of Communication with Friends and Family: More than three times a week Frequency of Social Gatherings with Friends and Family: Once a week Attends Mosque Services: Never Active Member of Clubs or Organizations: No Attends Club or Organization Meetings: Never Marital Status: Intimate Partner Violence: Not At Risk (11/25/2022) Humiliation, Afraid, Rape, and Kick questionnaire Fear of Current or Ex-Partner: No Emotionally Abused: No Physically Abused: No Sexually Abused: No Housing Stability: Low Risk (11/25/2022) Housing Stability Vital Sign Unable to Pay for Housing in the Last Year: No Number of Places Lived in the Last Year: 1 Unstable Housing in the Last Year: No ROS: General: denies fever, chills, fatigue, malaise OBJECTIVE LE EXAM: DERM: Elongated thick yellow crumbly nails digits 1 through 9 with diminished hair growth VASC: Positive palpable pedal pulses bilaterally NEURO: Gross sensation intact to bilateral feet ORTHO: Debride nails in length and thickness digits 1 through 9 ASSESSMENT 1. Pain due to onychomycosis of toenails of both feet PLAN Discussed proper foot care with patient today. Debride nails in length and thickness digits 1 through 9 [facility] DPM [facility] N[facility]* Other Medical (Routine) - Closed Specialty Diagnoses / Procedures Referred By Aminah t Referred To Contact Neurology Diagnoses Numbness of hand Procedures SD OFFICE/OUTPATIENT NEW HIGH MDM 60 MINUTES Kamila Castillo, AGRICULTURAL SYSTEMS SPECIALIST [address] [facility] [address] [place] [address] Phone: tel: fax: Waqas Dugan DO [address] [place] [address] Phone: tel: fax: Referral ID Status Reason Start Date Expiration Date V isits Requested Visits Authorized [id number] Closed Perform Procedure 03/05/2024 09/01/2024 1 1 [facility] Chief Complaint * New problem * Right shoulder pain MP Refer : RT shoulder ultra sound guided injection* Right shoulder pain, here for injection. 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 Summary Purpose Family History No Family History Records FoundNo Family History Records FoundNo Family History Records FoundNo Family History Records FoundNo Family History Records FoundNo Family History Records Found Advance Directives No Advanced Directives Records FoundNo Advanced Directives Records FoundNo Advanced Directives Records FoundNo Advanced Directives Records FoundNo Advanced Directives Records FoundNo Advanced Directives Records Found Additional Source Comments INFORMATION SOURCE (unrecogn ized section and content) DATE CREATED AUTHOR 09/08/2022 [facility] DATE CREATED AUTHOR AUTHOR'S ORGANIZ ATION 09/12/2022 [facility] Me dical Specialist DATE CREATED AUTHOR AUTHOR'S ORGANIZ ATION 10/09/2022 [facility] DATE CREATED AUTHOR AUTHOR'S ORGANIZ ATION 10/09/2022 [employer] DATE CREATED AUTHOR AUTHOR'S ORGANIZ ATION 04/10/2024 [facility] dical Specialists EPIC DATE CREATED AUTHOR AUTHOR'S ORGANIZ ATION 05/01/2024 [facility] ysician Group Reason for Visit (unrecogniz ed section and content) Reason Comments Ingrown Toenail Rt ingrown Reason Comments Ingrown Toenail F/U ingrown Reason Comments Toenail Care Non DM Nails Reason Onset Date Comments Med Refill 02/29/2024 Reason Comments Follow-up Hypertension Reason Comments Fall @ weeks ago pt fell and hit her walker going up steps. Reason Comments Med Refill Care Teams (unrecognized sec tion and content) Security Researcher Relationship Specialty Start Date End Date Roc Steele MD [address] [facility] [address] [place] [address] PCP - ACO Reach 09/22/22 Roc Steele MD [address] [facility] [address] [place], [place] [id number] PCP - General Internal Medicine 09/28/22 Security Researcher Relationship Specialty Start Date End Date Roc Steele MD [address] [facility] [address] [place] [address] PCP - ACO Reach 09/22/22 Roc Steele MD [address] [facility] [address] [place] [address] PCP - General Internal Medicine 09/28/22 Security Researcher Relationship Specialty Start Date End Date Roc Steele MD [address] [facility] [address] [place] [address] PCP - ACO Reach 09/22/22 Roc Steele MD [address] [facility] [address] [place] [address] PCP - General Internal Medicine 09/28/22 Security Researcher Relationship Specialty Start Date End Date Roc Steele MD [address] [facility] [address] [place] [address] PCP - General Internal Medicine 09/28/22 Roc Steele MD [address] [facility] [address] [place] [address] PCP - ACO Reach 08/30/23 Security Researcher Relationship Specialty Start Date End Date Roc Steele MD [address] [facility] [address] [place] [address] PCP - General Internal Medicine 09/28/22 Roc Steele MD [address] [facility] [address] [place] [address] PCP - ACO Reach 08/30/23 Security Researcher Relationship Specialty Start Date End Date Roc Steele MD [address] [facility] [address] [place] [address] PCP - General Internal Medicine 09/28/22 Roc Steele MD [address] [facility] [address] [place] [address] PCP - ACO Reach 08/30/23 Security Researcher Relationship Specialty Start Date End Date Roc Steele MD [address] [facility] [address] [place] [address] PCP - General Internal Medicine 09/28/22 Roc Steele MD [address] [facility] [address] [place] [address] PCP - ACO Reach 08/30/23 Security Researcher Relationship Specialty Start Date End Date Roc Steele MD [address] [facility] [address] [place] [address] PCP - General Internal Medicine 09/28/22 Roc Steele MD [address] [place] [address] [place] [address] PCP - ACO Reach 08/30/23 Security Researcher Relationship Specialty Start Date End Date Roc Steele MD [address] [place] [address] [place] [address] PCP - General Internal Medicine 09/28/22 Roc Steele MD [address] [facility] [address] [place] [address] PCP - ACO Reach 08/30/23 Security Researcher Relationship Specialty Start Date End Date Roc Steele MD [address] [place] [address] [place] [address] PCP - General Internal Medicine 09/28/22 Roc Steele MD [address] [facility] [address] [place] [address] PCP - ACO Reach 08/30/23 Waqas Dugan DO [address] [place] [id number] Referring Physician Neurology 03/07/24 Security Researcher Relationship Specialty Start Date End Date Roc Steele MD [address] [place] [address] [place] [address] PCP - General Internal Medicine 09/28/22 Roc Steele MD [address] [place] [address] [place] [address] PCP - ACO Reach 08/30/23 Waqas Dugan DO [address] [place] [address] Referring Physician Neurology 03/07/24 Security Researcher Relationship Specialty Start Date End Date Roc Steele MD [address] [facility] [address] [place] [address] PCP - General Internal Medicine 09/28/22 Roc Steele MD [address] [place] [address] [place] [address] PCP - ACO Reach 08/30/23 Waqas Dugan DO [address] [place] [address] Referring Physician Neurology 03/07/24 Security Researcher Relationship Specialty Start Date End Date Roc Steele MD [address] [place] [address] [place] [address] PCP - General Internal Medicine 09/28/22 Roc Steele MD [address] [place] [place] [address] PCP - ACO Reach 08/30/23 Waqas Dugan DO [address] [place] [address] Referring Physician Neurology 03/07/24 Security Researcher Relationship Specialty Start Date End Date Roc Steele MD [address] [place] [address] [place] [address] PCP - General Internal Medicine 09/28/22 Roc Steele MD [address] [place] [address] [place] [address] PCP - ACO Reach 08/30/23 Waqas Dugan DO [address] [place] [address] Referring Physician Neurology 03/07/24 Security Researcher Relationship Specialty Start Date End Date Roc Steele MD [address] [place] [address] [place] [address] PCP - General Internal Medicine 09/28/22 Roc Steele MD [address] [place] [address] [place] [address] PCP - ACO Reach 08/30/23 Security Researcher Relationship Specialty Start Date End Date Roc Steele MD [address] [facility] [address] [place] [address] PCP - General Internal Medicine 09/28/22 Roc Steele MD [address] [facility] [address] [place] [address] PCP - ACO Reach 08/30/23 Waqas Dugan DO [address] [place], [place] [id number] Referring Physician Neurology 03/07/24 FOR RECORDS PERTAINING TO PATIENTS WHO ARE OR HAVE BEEN ENROLLED IN A CHEMICAL DEPENDENCY/SUBSTANCEABUSE PROGRAM, SOME INFORMATION MAY BE OMITTED. This clinical summary was aggregated from multiple sources. Caution should be exercised in using it in the provision of clinical care. This summary normalizes information from multiple sources, and as a consequence, information in this document may materially change the coding, format and clinical context of patient data. In addition, data may be omitted in some cases. CLINICAL DECISIONS SHOULD BE BASED ON THE PRIMARY CLINICAL RECORDS. [facility]. provides no warranty or guarantee of the accuracy or completeness of information in this document.
--- NOTE | 2024-05-12 17:50 | ECG_ITS ---
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
--- NOTE | 2024-05-12 17:50 | XR_ITS ---
The [address] [address] Patient Name: LUMA RIBEIRO MRN: [id number] date: 1945 Sex: F Assigned Patient Location: ER Current Patient Location: ED.MAIN Accession/Order Number: [id number] Exam Date: 05/12/2024 18:10 Report Date: 05/12/2024 19:44 At the request of: MARION HAGEN Procedure: XR chest 1V EXAM: XR chest 1V HISTORY: Cough for 18 days COMPARISON: 06/22/2023 TECHNIQUE: Portable semiupright AP view of the chest. FINDINGS: There are no tubes or implants noted. Cardiac silhouette appears moderately enlarged. Diffuse interstitial prominence. No focal parenchymal opacities concerning for consolidation. No pneumothorax or pleural effusion. No displaced rib fractures. Osseous structures demonstrate degenerative changes. Soft tissues are grossly normal. XR/XR chest 1V IMPRESSION: Findings which may represent mild pulmonary interstitial edema, atypical infectious etiology or chronic lung changes. Electronically authenticated by: AYAN FREEMAN Date: 05/12/2024 19:44
--- NOTE | 2024-05-12 17:51 | ED.GENADUL1 ---
HPI HPI - General Adult General Chief complaint: Weakness Stated complaint: Dizziness Time Seen by Provider: 05/12/24 17:30 Mode of arrival: walk-in Limitations: no limitations History of Present Illness HPI narrative: 78-year-old female presents to the emergency department for a chief complaint of cough. She has had it for 18 days and has been on 2 rounds of steroids as well as an unknown antibiotic. She has been feeling weak and she called paramedics to transport her here. She normally lives with her but he is in an ECF currently so she is by herself at home. Related Data Home Medications ?Medication ?Instructions ?Recorded ?Confirmed alprazolam 0.25 mg tablet 0.25 mg PO BID PRN anxiety 12/01/22 05/12/24 amlodipine 5 mg tablet 5 mg PO DAILY 12/01/22 05/12/24 gabapentin 300 mg capsule 300 mg PO BID 12/01/22 05/12/24 hydrocodone 5 mg-acetaminophen 325 1 tab PO Q6H PRN pain 12/01/22 05/12/24 mg tablet meloxicam 15 mg tablet 15 mg PO DAILY 12/01/22 05/12/24 metoprolol succinate 50 mg 50 mg PO DAILY 12/01/22 05/12/24 tablet,extended release 24 hr nortriptyline 10 mg capsule 30 mg PO BEDTIME 12/01/22 05/12/24 pantoprazole 40 mg tablet,delayed 40 mg PO DAILY 12/01/22 05/12/24 release simvastatin 10 mg tablet 10 mg PO DAILY 12/01/22 05/12/24 zolpidem 10 mg tablet 10 mg PO DAILY 12/01/22 05/12/24 tizanidine 4 mg tablet 4 mg PO DAILY 05/12/24 05/12/24 Allergies Allergy/AdvReac Type Severity Reaction Status Date / Time clarithromycin Allergy Severe Rash Verified 12/01/22 14:27 moxifloxacin (From Avelox) Allergy Severe tongue Verified 12/01/22 14:27 swelling Sulfa (Sulfonamide Allergy Unknown Verified 12/01/22 14:27 Antibiotics) ciprofloxacin (From Cipro) Allergy Rash Verified 12/01/22 14:27 Opioid HPI Opioid Management Most Recent Opioid Data: No Data to Display Review of Systems ROS Narrative A ten point review of systems is negative except as noted above. PFSH PFSH Social History Smoking status: Never smoker Little interest or pleasure in doing things: not at all Feeling down, depressed, or hopeless: not at all Exam Narrative Exam Narrative: Nurses note and vital signs reviewed and patient is not hypoxic. General: The patient appears in no apparent distress. Skin: Warm, dry, no pallor noted. There is no rash noted. Head: Normocephalic, atraumatic Eye: Normal conjunctiva, no drainage Ears, Nose, Mouth, and Throat: oral mucosa is moist. Nares patent. Cardiovascular: Regular Rate and Rhythm, borderline tachycardia Respiratory: Patient is in no distress, no accessory muscle use, lungs are clear to auscultation, no wheezing, rales or rhonchi GI: Obese and nontender Musculoskeletal: The patient has no evidence of calf tenderness, no pitting edema, symmetrical pulses noted bilaterally Neurological: A&O, normal speech Psychiatric: Cooperative, tearful Constitutional Vital Signs, click to edit/add: Last Vital Signs Temp 97.9 F 05/12/24 17:29 Pulse 104 H 05/12/24 17:29 Resp 18 05/12/24 17:29 BP 144/78 H 05/12/24 17:29 Pulse Ox 99 05/12/24 17:50 O2 Del Method Room Air 05/12/24 17:50 Course Vital Signs Vital signs: Vital Signs Temperature 97.9 F 05/12/24 17:29 Pulse Rate 104 H 05/12/24 17:29 Respiratory Rate 18 05/12/24 17:29 Blood Pressure 144/78 H 05/12/24 17:29 Pulse Oximetry 97 05/12/24 17:29 Oxygen Delivery Method Room Air 05/12/24 17:29 Temperature 97.9 F 05/12/24 17:29 Pulse Rate 104 H 05/12/24 17:29 Respiratory Rate 18 05/12/24 17:29 Blood Pressure 144/78 H 05/12/24 17:29 Pulse Oximetry 99 05/12/24 17:50 Oxygen Delivery Method Room Air 05/12/24 17:50 Medical Decision Making MDM Narrative Medical decision making narrative: WBC is 18,000. COVID and influenza test are negative. Other tests are pending and the patient is signed out to Dr. Ledesma at change of shift. Differential Diagnosis Differential Diagnosis: Pneumonia, COVID, influenza, URI, dehydration Lab Data Lab results reviewed: Yes I reviewed the patient's lab results Labs: Lab Results 05/12/24 Range/Units 18:00 WBC 17.8 H (4.0-11.0) 10^3/uL RBC 5.10 (4.20-5.40) 10^6/uL Hgb 16.2 H (12.0-16.0) g/dL Hct 48.5 H (36.0-48.0) % MCV 95.1 (81.0-99.0) fL MCH 31.8 (26.7-34.0) pg MCHC 33.4 (29.9-35.2) g/dL RDW 12.8 (11.0-15.0) % Plt Count 286 (150-450) 10^3/uL MPV 11.0 (9.5-13.5) fL Seg Neuts % (Manual) 59.0 (43.0-75.0) Band Neutrophils % 2.0 (0-5) % Lymphocytes % (Manual) 23.0 (20.5-60.0) % Atypical Lymphs % (Man) 1.0 % Monocytes % (Manual) 12.0 (1.7-12.0) % Eosinophils % (Manual) 2.0 (0.9-7.0) % Basophils % (Manual) 1.0 (0.2-2.0) % Neutrophils # (Manual) 10.50 H (1.4-6.5) 10^3/uL Band Neutrophils # 0.4 H (0.0-0.3) 10^3/uL Lymphocytes # (Manual) 4.09 H (1.20-3.80) 10^3/uL Abs Atypical Lymphs Man 0.17 Monocytes # (Manual) 2.13 H (0.30-0.80) 10^3/uL Eosinophils # (Manual) 0.35 (0.00-0.70) 10^3/uL Basophils # (Manual) 0.17 H (0.00-0.10) 10^3/uL Influenza Type A Ag Negative Influenza Type B Ag Negative SARS-CoV-2 Ag (CV2AG) Negative (NEGATIVE) ECG Data Attestation: I personally reviewed and interpreted this ECG as follows: (EKG on my interpretation shows normal sinus rhythm with a rate of 89 and no acute change.) Discharge Plan Discharge Patient Disposition: Still a Patient
[2024-05-12 18:17] LABS: Hematocrit 48.5 % (36.0-48.0); Hemoglobin 16.2 g/dL (12.0-16.0); Mean Corpuscular HGB Conc 33.4 g/dL (29.9-35.2); Mean Corpuscular Hemoglobin 31.8 pg (26.7-34.0); Mean Corpuscular Volume 95.1 fL (81.0-99.0); Platelet Count 286 10^3/uL (150-450); Red Cell Distribution Width 12.8 % (11.0-15.0); White Blood Count 17.8 10^3/uL (4.0-11.0)
[2024-05-12 18:28] LABS: Influenza Virus A Antigen Negative; Influenza Virus B Antigen Negative; Internal Control Within Normal Limits; SARS-CoV-2 Ag NEGATIVE (NEGATIVE)
[2024-05-12 18:35] LABS: Anion Gap 12.9; BUN Creatinine Ratio 12.2; Calcium 9.9 mg/dL (8.5-10.1); Carbon Dioxide 31.7 mmol/L (21.0-32.0); Chloride 99 mmol/L (98-107); Estimated GFR (African America 48 (>=60 mL/min/1.73m^2); Estimated GFR (Non-African Ame 39 (>=60 mL/min/1.73m^2); Glucose 141 mg/dL (74-106); Potassium 3.6 mmol/L (3.5-5.1); Sodium 140 mmol/L (136-145); Troponin I High Sensitivity 20.2 pg/mL (4.0-51.3)
[2024-05-12 18:38] LABS: Atypical Lymphocytes Abs Man 0.17; Band Neutrophils Absolute 0.4 10^3/uL (0.0-0.3); Basophils Abs Manual 0.17 10^3/uL (0.00-0.10); Eosinophils Absolute Manual 0.35 10^3/uL (0.00-0.70); Lymphocytes Absolute Manual 4.09 10^3/uL (1.20-3.80); Monocytes Absolute Manual 2.13 10^3/uL (0.30-0.80)
--- NOTE | 2024-05-12 19:49 | ED.WEAKNESS1 ---
HPI - Weakness General Chief complaint: Weakness Stated complaint: Dizziness Time Seen by Provider: 05/12/24 17:30 Mode of arrival: walk-in Limitations: no limitations History of Present Illness HPI Narrative: This 78-year-old female was signed out to me at shift change pending labs and x-ray reports. She is a non-smoker presents for evaluation after she has been sick for the past 8 to 18 days with cough, congestion. She is currently on an antibiotic she cannot recall the name of. She states in March she went to see her family physician and an x-ray was ordered and she was told that she had some degree of pulmonary edema. She was placed on water pills at that time. She states initially 18 days ago she was sick with chills and sweats and started having cough and congestion since that time. She was initially seen at urgent care and placed on steroids. She then followed up with her family physician and was placed on another round of steroids and given antibiotics. She is allergic to quinolones and Biaxin as well as sulfa. It is unclear what antibiotic she may be on at this time. Her white count is elevated at 18,000. Her BNP is also elevated greater than 2700. She has a normal troponin. Electrolytes are normal with mild elevation in her creatinine at 1.31. Influenza and COVID-19 testing are negative. Her lungs are clear, she is resting comfortably and speaking in complete sentences. She has not been hypoxic or had any oxygen requirements. She was given 20 mg of IV Lasix, Rocephin and oral doxycycline to cover community-acquired pneumonia. I did not give her Zithromax due to her allergy to Biaxin. The case was discussed with the hospitalist and she was accepted for admission. Hospitalist requested that lactic acid and blood cultures be ordered prior to initiation of antibiotics. Related Data Home Medications ?Medication ?Instructions ?Recorded ?Confirmed alprazolam 0.25 mg tablet 0.25 mg PO BID PRN anxiety 12/01/22 05/12/24 amlodipine 5 mg tablet 5 mg PO DAILY 12/01/22 05/12/24 gabapentin 300 mg capsule 300 mg PO BID 12/01/22 05/12/24 hydrocodone 5 mg-acetaminophen 325 1 tab PO Q6H PRN pain 12/01/22 05/12/24 mg tablet meloxicam 15 mg tablet 15 mg PO DAILY 12/01/22 05/12/24 metoprolol succinate 50 mg 50 mg PO DAILY 12/01/22 05/12/24 tablet,extended release 24 hr nortriptyline 10 mg capsule 30 mg PO BEDTIME 12/01/22 05/12/24 pantoprazole 40 mg tablet,delayed 40 mg PO DAILY 12/01/22 05/12/24 release simvastatin 10 mg tablet 10 mg PO DAILY 12/01/22 05/12/24 zolpidem 10 mg tablet 10 mg PO DAILY 12/01/22 05/12/24 tizanidine 4 mg tablet 4 mg PO DAILY 05/12/24 05/12/24 Allergies Allergy/AdvReac Type Severity Reaction Status Date / Time clarithromycin Allergy Severe Rash Verified 12/01/22 14:27 moxifloxacin (From Avelox) Allergy Severe tongue Verified 12/01/22 14:27 swelling Sulfa (Sulfonamide Allergy Unknown Verified 12/01/22 14:27 Antibiotics) ciprofloxacin (From Cipro) Allergy Rash Verified 12/01/22 14:27 PFSH PFSH Social History Smoking status: Never smoker Little interest or pleasure in doing things: not at all Feeling down, depressed, or hopeless: not at all Exam Constitutional Vital Signs, click to edit/add: Last Vital Signs Temp 97.9 F 05/12/24 17:29 Pulse 105 H 05/12/24 19:20 Resp 24 H 05/12/24 19:30 BP 144/78 H 05/12/24 17:29 Pulse Ox 99 05/12/24 17:50 O2 Del Method Room Air 05/12/24 17:50 Course Vital Signs Vital signs: Vital Signs Temperature 97.9 F 05/12/24 17:29 Pulse Rate 104 H 05/12/24 17:29 Respiratory Rate 18 05/12/24 17:29 Blood Pressure 144/78 H 05/12/24 17:29 Pulse Oximetry 97 05/12/24 17:29 Oxygen Delivery Method Room Air 05/12/24 17:29 Temperature 97.9 F 05/12/24 17:29 Pulse Rate 105 H 05/12/24 19:20 Respiratory Rate 24 H 05/12/24 19:30 Blood Pressure 144/78 H 05/12/24 17:29 Pulse Oximetry 99 05/12/24 17:50 Oxygen Delivery Method Room Air 05/12/24 17:50 MDM - Weakness Medical Records Medical records narrative: The [address] [address] XRay Report Signed Patient: LUMA RIBEIRO MR#: [id number] : 1945 Acct:[id number] Age/Sex: 78 / F ADM Date: 05/12/24 Loc: ER Attending Dr: Ordering Physician: Marion Hagen M.D. Date of Service: 05/12/24 Procedure(s): XR chest 1V Accession Number(s): [id number] cc: REJI OFRRESTER ; Marion Hagen M.D.~ The [address] [address] Patient Name: LUMA RIBEIRO MRN: [id number] date: 1945 Sex: F Assigned Patient Location: ER Current Patient Location: ED.MAIN Accession/Order Number: [id number] Exam Date: 05/12/2024 18:10 Report Date: 05/12/2024 19:44 At the request of: MARION HAGEN Procedure: XR chest 1V EXAM: XR chest 1V HISTORY: Cough for 18 days COMPARISON: 06/22/2023 TECHNIQUE: Portable semiupright AP view of the chest. FINDINGS: There are no tubes or implants noted. Cardiac silhouette appears moderately enlarged. Diffuse interstitial prominence. No focal parenchymal opacities concerning for consolidation. No pneumothorax or pleural effusion. No displaced rib fractures. Osseous structures demonstrate degenerative changes. Soft tissues are grossly normal. XR/XR chest 1V IMPRESSION: Findings which may represent mild pulmonary interstitial edema, atypical infectious etiology or chronic lung changes. Electronically authenticated by: AYAN FREEMAN Date: 05/12/2024 19:44 Lab Data Labs: Lab Results 05/12/24 Range/Units 18:00 WBC 17.8 H (4.0-11.0) 10^3/uL RBC 5.10 (4.20-5.40) 10^6/uL Hgb 16.2 H (12.0-16.0) g/dL Hct 48.5 H (36.0-48.0) % MCV 95.1 (81.0-99.0) fL MCH 31.8 (26.7-34.0) pg MCHC 33.4 (29.9-35.2) g/dL RDW 12.8 (11.0-15.0) % Plt Count 286 (150-450) 10^3/uL MPV 11.0 (9.5-13.5) fL Seg Neuts % (Manual) 59.0 (43.0-75.0) Band Neutrophils % 2.0 (0-5) % Lymphocytes % (Manual) 23.0 (20.5-60.0) % Atypical Lymphs % (Man) 1.0 % Monocytes % (Manual) 12.0 (1.7-12.0) % Eosinophils % (Manual) 2.0 (0.9-7.0) % Basophils % (Manual) 1.0 (0.2-2.0) % Neutrophils # (Manual) 10.50 H (1.4-6.5) 10^3/uL Band Neutrophils # 0.4 H (0.0-0.3) 10^3/uL Lymphocytes # (Manual) 4.09 H (1.20-3.80) 10^3/uL Abs Atypical Lymphs Man 0.17 Monocytes # (Manual) 2.13 H (0.30-0.80) 10^3/uL Eosinophils # (Manual) 0.35 (0.00-0.70) 10^3/uL Basophils # (Manual) 0.17 H (0.00-0.10) 10^3/uL Sodium 140 (136-145) mmol/L Potassium 3.6 (3.5-5.1) mmol/L Chloride 99 (98-107) mmol/L Carbon Dioxide 31.7 (21.0-32.0) mmol/L Anion Gap 12.9 BUN 16.0 (7.0-18.0) mg/dL Creatinine 1.31 H (0.55-1.02) mg/dL Est GFR ( Amer) 48 L (>=60 mL/min/1.73m^2) Est GFR (Non-Af Amer) 39 L (>=60 mL/min/1.73m^2) BUN/Creatinine Ratio 12.2 Glucose 141 H (74-106) mg/dL Calcium 9.9 (8.5-10.1) mg/dL Troponin I High Sens 20.2 (4.0-51.3) pg/mL NT-Pro-B Natriuret Pep 2784.0 H* (<=1800.0) pg/mL Influenza Type A Ag Negative Influenza Type B Ag Negative SARS-CoV-2 Ag (CV2AG) Negative (NEGATIVE) Discharge Plan Discharge Chief Complaint: Weakness Clinical Impression: Generalized weakness, Pneumonia, Pulmonary edema Patient Disposition: Admitted As Inpatient Time of Disposition Decision: 20:02 Condition: Good
[2024-05-12 20:22] LABS: Lactate/Lactic Acid 5.2 mmol/L (0.4-2.0)
[2024-05-12] MEDS: FUROSEMIDE 20 MG/2 ML VIAL IVP (20:44)
[2024-05-12] MEDS: DOXYCYCLINE MONOHYDRATE 100 MG CAPSULE PO (20:44)
[2024-05-12] MEDS: CEFTRIAXONE 1,000 MG in 0.9 % SODIUM CHLORIDE 50 ML 100 MG IV (20:48)
[2024-05-12 20:51] LABS: Thyroid Stimulating Hormone 2.863 uIU/mL (0.358-3.740)
[2024-05-12 20:53] LABS: Estimated Average Glucose 131 mg/dL; Glycohemoglobin A1C 6.2 % (4.5-6.2)
[2024-05-12 20:54] LABS: Troponin I High Sensitivity 17.4 pg/mL (4.0-51.3)
[2024-05-12 21:04] LABS: Lactate/Lactic Acid 2.6 mmol/L (0.4-2.0)
--- OUTSIDE RECORDS SUMMARY | 2024-05-12 21:04 | XMS_ITS | CCD ---
Author Organization [facility] Care Team Providers Care Superintendent Factory Name Role Phone Tasia Bird Unavailable Unavailable [...] DR WHIPPLE Attending Unavailable CHANTAL ., DR WHIPPLE Admitting Unavailable USAMA, DR MENDOZA Primary Care Unavailable ISAEL HANSEN Consulting Unavailable ROXANN KERR Consulting Unavailab harjinder Steele II, Dr. Roc Lerma Primary Care Catina sarah Canchola, Dr. Taniya Briscoe Attending U Roc Wellington MD Unavailable Roc Steele MD Primary Care Provider Roc Steele MD Unavailable Waqas Dugan DO [...] Unavailable BIGG, KAMILA M Attending Unavailable BIGG, KAMILA M Attending Unavailable BIGG, KAMILA M Referring Unavailable Mala Sapp Attending Mala Torres Admitting Roc Leary Primary Care Unavailable Allergies Allergy Classification Reported Allergen(s) Allergy Type Date of Onset Reaction(s) Facility Macrolides (antibiotic) (6 sources) Clarithromycin; Translations: [clarithromycin] Drug Allergy Unknown [facility] Work Phone: Quinolones (antibiotic) (18 sources) moxifloxacin; Translations: [moxifloxacin] Drug Allergy Anaphylaxis, Unknown [facility] Work Phone: (20 sources) Ciprofloxacin; Translations: [ciprofloxacin] Drug Allergy 3 Unknown [facility] (20 sources) Clarithromycin; Translations: [clarithromycin] Drug Allergy 3 Unknown [facility] (4 sources) moxifloxacin; Translations: [Avelox] Drug Allergy 3 Anaphylaxis [facility] (20 sources) moxifloxacin; Translations: [moxifloxacin] Drug Allergy 3 Anaphylaxis [facility] Work Phone: (1 source) Ciprofloxacin Drug Allergy 3 [facility] (1 source) Sulfonamides (Antibiotic) Drug allergy (disorder) 3 [facility] (20 sources) Sulfanilamide Allergy to substance 3 [facility] Medications Current Medications Medication Drug Class(es) Dates Sig (Normalized) Sig (Original) acetaminophen 325 mg / HYDROcodone bitartrate 5 mg oral tablet (12 sources) Opioid Agonist Start: 02-29-2024 End: 05-03-2024 take 1 tablet by mouth every four hours for pain HYDROcodone-acetam inophen (Foster) 5-325 MG tablet Indications: Lumbosacral spondylosis without [...] 3 Chronic Other aftercare (1 source) 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; Translations: [OTH HALFWAY CURRENT DRUG THERAPY] Onset: 3 Episodic Other [...] XR chest 2V*on 04-29-2024 XR chest 2V* [facility] [place] [address] XRay Report Signed Patient: Luma Ribeiro MR#: [id number] : 1945 Acct:[id number] Age/Sex: 78 / F ADM Date: 04/29/24 Loc: XDUCLY Room: Type: [facility] 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 APRN Copies to: Mala Sapp APRN Ordering Provider: Mala Sapp APRN Date of Service: 04/29/24 XR/XR chest 2V*: COUGH Plain film chest 2 view HISTORY: Productive cough and shortness of breath COMPARISON: None FINDINGS: SUPPORT DEVICES: None POSTSURGICAL CHANGES: None HEART: Within normal limits PULMONARY EVA: Within normal limits MEDIASTINUM: Unremarkable LUNGS AND [...] [facility]-19 Transcribed By: [facility] 04/29/24 1600 Dictated By: Jose R Christopher DO 04/29/24 1559 Signed By: 04/29/24 1600 Normal [facility] XR CHEST 2 [...] de hand and wrist EMG 1 Extremeityon [facility] NVC 7-8 Nerveson 03-07-2024 [facility] Established Visit (Orthopaed ic Surgery)on 10-04-2022 Established [...] Complaint RT shoulder Ongoing issue 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 Distal pulses and sensation are intact. Limited forward flexion to about 25 degrees lateral abduction to about 15 unable to perform any external rotation but internal he can get to the small of her back. Her exam does not allow for much of a true Neer's Shelby or Dorado's test. Diagnostics: See dictated report from today, previous outside CT scan report of the humerus reviewed, and is available in the [facility] chart. 1 Procedure: None Assessment: Chronic shoulder [...] the patient's CT scan report reviewed in [facility] chart Other 1 than the anterior medial [...] Radiologyon 10-04-2022 XR Shoulder 2 Views [facility] [facility] [place] Work Phone: SHOULDER, CMPLT, MIN 2 VIEWS on 10-04-2022 SHOULDER, CMPLT, MIN 2 VIEWS Patient Name: LUMA RIBEIRO STUDY: SHOULDER, CMPLT, MIN 2 VIEWS; Right; 10/04/2022 1:49 pm INDICATION: pain M25.519: Shoulder pain. ACCESSION NUMBER(S): [id number] ORDERING CLINICIAN: TANIYA CANCHOLA FINDINGS: Multiple views [...] Electronically signed by: TANIYA CANCHOLA MD Normal [facility] CT HUMERUS RIGHT W/O CONTRAS Ton 09-12-2022 [...] osteoarthrosis. Report reported and signed by Pernell Wiley on 09/12/2022 1127 Normal [facility] XR Chest 2 Views*on 09-13-19 23 XR [...] by Pernell Wiley on 09/12/2022 1101 Normal [facility] XR CHEST 2 Von 09-05-2022 XR CHEST [...] ISAEL HANSEN Date: 2022-09-05 15:11 Normal [facility] XR KUB 1 VIEWon 09-05-2022 XR [...] ISAEL HANSEN Date: 2022-09-05 15:10 Normal [facility] AMYLASEon 09-03-2022 Amylase [Catalytic activity/Vol] 34 U/L Normal 25-115 [facility] Comment on above: Performed By: #### L IPA, CMP, CMADM, BNP, GRACIELA #### [facility] [address] [address] [address] Yonny Meza BNPon 09-03-2022 Natriuretic peptide B (Bld) [Mass/Vol] 241.0 pg/mL Normal <=1,800.0 [facility] Comment on above: Performed By: #### L IPA, CMP, CMADM, BNP, GRACIELA #### [facility] [address] [place] [address] Dr. Yonny Meza CARDIAC SRINIVASA ADMITon 023 CK [Catalytic activity/Vol] 154 U/L Normal 26-192 [facility] Comment on above: Performed By: #### L IPA, CMP, CMADM, BNP, GRACIELA #### [facility] [address] [address] [address] Yonny Meza CK.MB [Mass/Vol] 1.42 ng/mL Normal <=3.60 [facility] Comment on above: Performed By: #### L IPA, CMP, CMADM, BNP, GRACIELA #### [facility] [address] [place] [address] Dr. Yonny Meza HSTROP 13.9 pg/mL Normal 4.0-51.3 [facility] Comment on above: Result Comment: CUT- OFF POINTS HAVE BEEN ESTABLISHED BASED ON THE FOURTH UNIVERSAL DEFINITIONS OF MYOCARDIAL INFARCTION. THE UPPER REFERENCE LIMIT (URL) OF TROPONIN, DEFINED THE 99TH PERCENTILE OF cTnI DISTRIBUTION IN A REFERENCE POPULATION, HAS BEEN CONFIRMED THE DECISION THRESHOLD FOR MO DIAGNOSIS. Performed By: #### L IPA, CMP, CMADM, BNP, GRACIELA #### [facility] [address] [place] [address] Dr. Yonny Meza DARION 63 ng/mL Normal 9-82 [facility] Comment on above: Performed By: #### L IPA, CMP, CMADM, BNP, GRACIELA #### [facility] [address] [place] [address] Dr. Yonny Meza CBC AUTO DIFFon 09-03-2022 BASO # 0.0 103/ul Normal 0.0-0.1 [facility] Comment on above: Performed By: #### L IPA, CMP, CMADM, BNP, GRACIELA #### [facility] [address] [place] [address] Dr. Yonny Meza Basophils/100 WBC (Bld) 0.4 % Normal 0.2-2.0 [facility] Comment on above: Performed By: #### L IPA, CMP, CMADM, BNP, GRACIELA #### [facility] [address] [place] [address] Dr. Yonny Meza EO # 0.1 103/ul Normal 0.0-0.7 [facility] Comment on above: Performed By: #### L IPA, CMP, CMADM, BNP, GRACIELA #### [facility] [address] [place] [address] Dr. Yonny Meza Eosinophils/100 WBC (Bld) 1.6 % Normal 0.9-7.0 [facility] Comment on above: Performed By: #### L IPA, CMP, CMADM, BNP, GRACIELA #### [facility] [address] [place] [address] Dr. Yonny Meza Erythrocyte distribution width (RBC) [Ratio] 12.6 % Normal 11.0-15.0 [facility] Comment on above: Performed By: #### L IPA, CMP, CMADM, BNP, GRACIELA #### [facility] [address] [place] [address] Dr. Yonny Meza Hematocrit (Bld) [Volume fraction] 38.9 % Normal 36.0-48.0 [facility] Comment on above: Performed By: #### L IPA, CMP, CMADM, BNP, GRACIELA #### [facility] [address] [place] [address] Dr. Yonny Meza Hemoglobin (Bld) [Mass/Vol] 13.0 g/dL Normal 12.0-16.0 [facility] Comment on above: Performed By: #### L IPA, CMP, CMADM, BNP, GRACIELA #### [facility] [address] [place] [address] Dr. Yonny Meza IG # 0.02 10e3/ul Normal 0.00-0.03 [facility] Comment on above: Performed By: #### L IPA, CMP, CMADM, BNP, GRACIELA #### [facility] [address] [place] [address] Dr. Yonny Meza IG % 0.3 % Normal 0.0-0.5 [facility] Comment on above: Performed By: #### L IPA, CMP, CMADM, BNP, GRACIELA #### [facility] [address] [place] [address] Dr. Yonny Meza LYMPH # 2.0 103/ul Normal 1.2-3.8 [facility] Comment on above: Performed By: #### L IPA, CMP, CMADM, BNP, GRACIELA #### [facility] [address] [place] [address] Dr. Yonny Meza Lymphocytes/100 WBC (Bld) 25.3 % Normal 20.5-60.0 [facility] Comment on above: Performed By: #### L IPA, CMP, CMADM, BNP, GRACIELA #### [facility] [address] [place] [address] Dr. Yonny Meza MANUAL DIFF REQ NO Normal [facility] Comment on above: Performed By: #### L IPA, CMP, CMADM, BNP, GRACIELA #### [facility] [address] [place] [address] Dr. Yonny Meza MCH (RBC) [Entitic mass] 31.8 pg Normal 26.7-34.0 [facility] Comment on above: Performed By: #### L IPA, CMP, CMADM, BNP, GRACIELA #### [facility] [address] [place] [address] Dr. Yonny Meza MCHC (RBC) [Mass/Vol] 33.4 g/dL Normal 29.9-35.2 [facility] Comment on above: Performed By: #### L IPA, CMP, CMADM, BNP, GRACIELA #### [facility] [address] [place] [address] Dr. Yonny Meza MCV (RBC) [Entitic vol] 95.1 fL Normal 81.0-99.0 [facility] Comment on above: Performed By: #### L IPA, CMP, CMADM, BNP, GRACIELA #### [facility] [address] [place] [address] Dr. Yonny Meza MONO # 0.9 103/ul Critically high 0.3-0.8 [facility] Comment on above: Performed By: #### L IPA, CMP, CMADM, BNP, GRACIELA #### [facility] [address] [address] [address] Yonny Meza Monocytes/100 WBC (Bld) 11.5 % Normal 1.7-12.0 [facility] Comment on above: Performed By: #### L IPA, CMP, CMADM, BNP, GRACIELA #### [facility] [address] [place] [address] Dr. Yonny Meza NEUT # 4.8 103/ul Normal 1.4-6.5 [facility] Comment on above: Performed By: #### L IPA, CMP, CMADM, BNP, GRACIELA #### [facility] [address] [address] [address] Yonny Meza Neutrophils/100 WBC (Bld) 60.9 % Normal 43.0-75.0 [facility] Comment on above: Performed By: #### L IPA, CMP, CMADM, BNP, GRACIELA #### [facility] [address] [place] [address] Dr. Yonny Meza Platelet mean volume (Bld) [Entitic vol] 10.1 fL Normal 9.5-13.5 [facility] Comment on above: Performed By: #### L IPA, CMP, CMADM, BNP, GRACIELA #### [facility] [address] [place] [address] Dr. Yonny Meza PLT 252 103/ul Normal 150-450 [facility] Comment on above: Performed By: #### L IPA, CMP, CMADM, BNP, GRACIELA #### [facility] [address] [address] [address] Yonny Meza RBC 4.09 106/ul Critically low 4.20-5.40 [facility] Comment on above: Performed By: #### L IPA, CMP, CMADM, BNP, GRACIELA #### [facility] [address] [place] [address] Dr. Yonny Meza WBC 7.9 103/ul Normal 4.0-11.0 [facility] Comment on above: Performed By: #### L IPA, CMP, CMADM, BNP, GRACIELA #### [facility] [address] [address] [address] ABD/PELVIS WO CONon [...] HATTIE [place] Date: 2022-09-03 01:11 Normal [facility] ER URINE PROFILEon 3 Bilirubin Ql (U) Negative Normal NEGATIVE [facility] Comment on above: Performed By: #### L IPA, CMP, CMADM, BNP, GRACIELA #### [facility] [address] [address] [address] Yonny Meza Clarity (U) CLEAR Normal CLEAR [facility] Comment on above: Performed By: #### L IPA, CMP, CMADM, BNP, GRACIELA #### [facility] [address] [address] [address] Yonny Meza Color (U) LT. YELLOW Normal YELLOW [facility] Comment on above: Performed By: #### L IPA, CMP, CMADM, BNP, GRACIELA #### [facility] [address] [address] [address] Yonny Meza ERUAHD A micrscopic examina tion will be performed if indicated. Normal [facility] Comment on above: Performed By: #### L IPA, CMP, CMADM, BNP, GRACIELA #### [facility] [address] [address] [address] Yonny Meza Glucose Ql (U) Negative Normal NEGATIVE [facility] Comment on above: Performed By: #### L IPA, CMP, CMADM, BNP, GRACIELA #### [facility] [address] [address] [address] Yonny Meza Hemoglobin Ql (U) Negative Normal NEGATIVE The [facility] Comment on above: Performed By: #### L IPA, CMP, CMADM, BNP, GRACIELA #### [facility] [address] [address] [address] Yonny Meza Ketones Ql (U) Negative Normal NEGATIVE [facility] Comment on above: Performed By: #### L IPA, CMP, CMADM, BNP, GRACIELA #### [facility] [address] [address] [address] Yonny Meza LEUKOCYTES Negative Normal NEGATIVE [facility] Comment on above: Performed By: #### L IPA, CMP, CMADM, BNP, GRACIELA #### [facility] [address] [address] [address] Yonny Meza Nitrite Ql (U) Negative Normal NEGATIVE [facility] Comment on above: Performed By: #### L IPA, CMP, CMADM, BNP, GRACIELA #### [facility] [address] [address] [address] Yonny Meza pH (U) 7.0 [pH] Normal 5-9 [facility] Comment on above: Performed By: #### L IPA, CMP, CMADM, BNP, GRACIELA #### [facility] [address] [place] [address] Dr. Yonny Meza SPEC GRAVITY 1.015 Normal 1.005-<=1.0 25 [facility] Comment on above: Performed By: #### L IPA, CMP, CMADM, BNP, GRACIELA #### [facility] [address] [place] [address] Dr. Yonny Meza UA PROTEIN Negative Normal NEGATIVE/ TRACE [facility] Comment on above: Performed By: #### L IPA, CMP, CMADM, BNP, GRACIELA #### [facility] [address] [place] [address] Dr. Yonny Meza UR MICRO IND NOT INDICATED Normal [facility] Comment on above: Performed By: #### L IPA, CMP, CMADM, BNP, GRACIELA #### [facility] [address] [place] [address] Dr. Yonny Meza Urobilinogen Qn (U) 0.2 {Arnaud'U}/dL Normal 0.2 - 1.0 [facility] Comment on above: Performed By: #### L IPA, CMP, CMADM, BNP, GRACIELA #### [facility] [address] [place] [address] Dr. Yonny Meza LACTATE/LACTIC ACIDon 2022 Lactate [Moles/Vol] 2.3 mmol/L Critically high 0.4-2.0 [facility] Comment on above: Performed By: #### L ACT #### [facility] [address] [address] [address] Yonny Meza Lactate [Moles/Vol] 2.2 mmol/L Critically high 0.4-2.0 [facility] Comment on above: Performed By: #### L IPA, CMP, CMADM, BNP, GRACIELA #### [facility] [address] [address] [address] Yonny Meza LIPASEon 09-03-2022 Lipase [Catalytic activity/Vol] 88.0 U/L Normal 73.0-393.0 [facility] Comment on above: Performed By: #### L IPA, CMP, CMADM, BNP, GRACIELA #### [facility] [address] [place] [address] Dr. Yonny Meza PROF 14(COMP METB)on 023 Albumin [Mass/Vol] 3.3 g/dL Critically low 3.4-5.0 [facility] Comment on above: Performed By: #### L IPA, CMP, CMADM, BNP, GRACIELA #### [facility] [address] [address] [address] Yonny Meza Albumin/Globulin [Mass ratio] 0.9 {ratio} Normal [facility] Comment on above: Performed By: #### L IPA, CMP, CMADM, BNP, GRACIELA #### [facility] [address] [address] [address] Yonny Meza ALP [Catalytic activity/Vol] 122 U/L Critically high 46-116 [facility] Comment on above: Performed By: #### L IPA, CMP, CMADM, BNP, GRACIELA #### [facility] [address] [address] [address] Yonny Meza ALT [Catalytic activity/Vol] 21 U/L Normal 14-59 [facility] Comment on above: Performed By: #### L IPA, CMP, CMADM, BNP, GRACIELA #### [facility] [address] [address] [address] Yonny Meza Anion gap [Moles/Vol] 12.4 mmol/L Normal [facility] Comment on above: Performed By: #### L IPA, CMP, CMADM, BNP, GRACIELA #### [facility] [address] [place] [address] Dr. Yonny Meza AST [Catalytic activity/Vol] 24 U/L Normal 15-37 [facility] Comment on above: Performed By: #### L IPA, CMP, CMADM, BNP, GRACIELA #### [facility] [address] [place] [address] Dr. Yonny Meza Bilirubin [Mass/Vol] 0.4 mg/dL Normal 0.2-1.0 [facility] Comment on above: Performed By: #### L IPA, CMP, CMADM, BNP, GRACIELA #### [facility] [address] [place] [address] Dr. Yonny Meza Calcium [Mass/Vol] 8.7 mg/dL Normal 8.5-10.1 [facility] Comment on above: Performed By: #### L IPA, CMP, CMADM, BNP, GRACIELA #### [facility] [address] [place] [address] Dr. Yonny Meza Chloride [Moles/Vol] 105 mmol/L Normal 98-107 [facility] Comment on above: Performed By: #### L IPA, CMP, CMADM, BNP, GRACIELA #### [facility] [address] [place] [address] Dr. Yonny Meza CO2 [Moles/Vol] 28.0 mmol/L Normal 21.0-32.0 [facility] Comment on above: Performed By: #### L IPA, CMP, CMADM, BNP, GRACIELA #### [facility] [address] [place] [address] Dr. oYnny Meza Creatinine [Mass/Vol] 1.11 mg/dL Critically high 0.55-1.02 [facility] Comment on above: Performed By: #### L IPA, CMP, CMADM, BNP, GRACIELA #### [facility] [address] [place] [address] Dr. Yonny Meza EGFR-AF URUGUAYAN 58 mL/min/1.73m2 Critically low >=60 [facility] Comment on above: Performed By: #### L IPA, CMP, CMADM, BNP, GRACIELA #### [facility] [address] [address] [address] Yonny Meza EGFR-NON AF URUGUAYAN 48 mL/min/1.73m2 Critically low >=60 [facility] Comment on above: Performed By: #### L IPA, CMP, CMADM, BNP, GRACIELA #### [facility] [address] [place] [address] Dr. Yonny Meza Globulin (S) [Mass/Vol] 3.7 g/dL Normal [facility] Comment on above: Performed By: #### L IPA, CMP, CMADM, BNP, GRACIELA #### [facility] [address] [place] [address] Dr. Yonny Meza Glucose [Mass/Vol] 152 mg/dL Critically high 74-106 [facility] Comment on above: Performed By: #### L IPA, CMP, CMADM, BNP, GRACIELA #### [facility] [address] [place] [address] Dr. Yonny Meza Potassium [Moles/Vol] 3.4 mmol/L Critically low 3.5-5.1 [facility] Comment on above: Performed By: #### L IPA, CMP, CMADM, BNP, GRACIELA #### [facility] [address] [place] [address] Dr. Yonny Meza Protein [Mass/Vol] 7.0 g/dL Normal 6.4-8.2 [facility] Comment on above: Performed By: #### L IPA, CMP, CMADM, BNP, GRACIELA #### [facility] [address] [place] [address] Dr. Yonny Meza Sodium [Moles/Vol] 142 mmol/L Normal 136-145 [facility] Comment on above: Performed By: #### L IPA, CMP, CMADM, BNP, GRACIELA #### [facility] [address] [place] [address] Dr. Yonny Meza Urea nitrogen [Mass/Vol] 14.0 mg/dL Normal 7.0-18.0 [facility] Comment on above: Performed By: #### L IPA, CMP, CMADM, BNP, GRACIELA #### [facility] [address] [address] [address] Yonny Meaz Urea nitrogen/Creatini ne [Mass ratio] 12.6 mg/mg Normal [facility] Comment on above: Performed By: #### L IPA, CMP, CMADM, BNP, GRACIELA #### [facility] [address] [address] [address] Yonny Meza PROTIMEon 09-03-2022 INR Coag (PPP) [Relative time] 1.05 {INR} Normal [facility] Comment on above: Performed By: #### L IPA, CMP, CMADM, BNP, GRACIELA #### [facility] [address] [place] [address] Dr. Yonny Meza INR GUIDELINES SEE BELOW Normal [facility] Comment on above: Result Comment: ASCENCION RED INR: 2.0 - 3.0 CONDITIONS NOT LISTED BELOW 2.5 - 3.5 FOR PROSTHETIC HEART VALVE REPLACEMENT 2.5 - 3.5 RECURRENT THROMBOSIS Performed By: #### L IPA, CMP, CMADM, BNP, GRACIELA #### [facility] [address] [place] [address] Dr. Yonny Meza PT Coag (PPP) [Time] 11.1 s Normal 9.0-11.6 [facility] Comment on above: Performed By: #### L IPA, CMP, CMADM, BNP, GRACIELA #### [facility] [address] [address] [address] Yonny Meza PTTon 09-03-2022 aPTT Coag (Bld) [Time] 26.7 s Normal 22.3-36.2 [facility] Comment on above: Performed By: #### L IPA, CMP, CMADM, BNP, GRACIELA #### [facility] [address] [place] [address] Dr. Yonny Meza XR CHEST 1 Von [...] by: HATTIE [place] Date: 2022-09-03 00:08 Normal [facility] MAMM SCREEN 3D RON CADon 06-06-2022 MG MAMM SCREEN 3D RON CAD Patient: LUMA RIBEIRO Exam Date: 06/06/2022 : 1945 Gender:F Ordering : DR ROC STEELE M.D. Admission #: [id number] Family : Order #: [id number] CLICK HERE TO VIEW EXAM RADIOLOGY REPORT [...] breast cancer at age 61. LOCATION: [facility] BREAST COMPOSITION: Scattered areas fibroglandular density. [...] Caballero MD on 06/07/2022 at 08:09 Normal [facility] No Panel Informationon 12-16 Please click on the link to view the study images [facility] [place] Work Phone: Radiologyon 12-03-2020 XR Pelvis and Hip - left 2 Views Normal [facility] [employer] Phone: MRI Humerus w/wo Contraston 11-20-2020 MRI Humerus w/wo Contrast Normal [facility] Work Phone: Otheron 02-13-2020 Interpreted by: BONIFACIO WARE 15:34MRN: [id number] Name: LUAM RIBERIO STUDY:HIP, UNILATERAL W/PELVIS WHEN PERFORMED 2-3 VIEWS; Right;02/13/2020 1:58 pm INDICATION:pain. 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 No acute bony abnormality orperiprosthetic fracture appreciated. Electronically signed by: TASIA BIRD 02/13/20 15:34 Normal [facility] [employer] Phone: Complete Blood Count + Diffe rentialon 01-30-2020 Basophils (Bld) [#/Vol] 0.04 {x10E9/L} See Below [facility] Work Phone: Comment on above: Reference Range: 0.0 0 - 0.10 Basophils/100 WBC (Bld) 0.2 % 0.0 - 2.0 [facility] [employer] Work Phone: Eosinophils (Bld) [#/Vol] 0.01 {x10E9/L} See Below [facility] [employer] Work Phone: Comment on above: Reference Range: 0.0 0 - 0.40 Eosinophils/100 WBC (Bld) 0.1 % 0.0 - 6.0 [facility] [employer] Work Phone: Erythrocyte distribution width (RBC) [Ratio] 13.1 % See Below [facility] [employer] Work Phone: Comment on above: Reference Range: 11. 5 - 14.5 Hematocrit (Bld) [Volume fraction] 34.8 % below low threshold See Below [facility] [place] Work Phone: [phone] Comment on above: Reference Range: 36. 0 - 46.0 Hemoglobin (Bld) [Mass/Vol] 11.3 g/dL below low threshold See Below [facility] [place] Work Phone: [phone] Comment on above: Reference Range: 12. 0 - 16.0 Lymphocytes (Bld) [#/Vol] 2.21 {x10E9/L} See Below [facility] [place] Work Phone: [phone] Comment on above: Reference Range: 0.8 0 - 3.00 Lymphocytes/100 WBC (Bld) 12.5 % See Below [facility] [place] Work Phone: [phone] Comment on above: Reference Range: 13. 0 - 44.0 MCHC (RBC) [Mass/Vol] 32.5 g/dL See Below [facility] [place] Work Phone: [phone] Comment on above: Reference Range: 32. 0 - 36.0 MCV (RBC) [Entitic vol] 99 fL 80 - 100 [facility] [place] Work Phone: [phone] Monocytes (Bld) [#/Vol] 1.82 {x10E9/L} above high threshold See Below [facility] [place] Work Phone: [phone] Comment on above: Reference Range: 0.0 5 - 0.80 Monocytes/100 WBC (Bld) 10.3 % 2.0 - 10.0 -[facility] [place] Work Phone: [phone] Neutrophils/100 WBC (Bld) 76.3 % See Below [facility] [place] Work Phone: [phone] Comment on above: Reference Range: 40. 0 - 80.0 Platelets (Bld) [#/Vol] 234 {x10E9/L} 150 - 450 -[facility] [place] Work Phone: [phone] RBC (Bld) [#/Vol] 3.52 {x10E12/L} below low threshold See Below [facility] [employer] Work Phone: [phone] Comment on above: Reference Range: 4.0 0 - 5.20 WBC (Bld) [#/Vol] 17.7 {x10E9/L} above high threshold 4.4 - 11.3 [facility] [employer] Work Phone: [phone] Complete Blood Count + Differential 0.6 % 0.0 - 0.9 [facility] [employer] Work Phone: [phone] Comment on above: Immature Granulocyte Count (IG) includes promyelocytes, myelocytes and metamyelocytes but does not include bands. Percent differential counts (%) should be interpreted in the context of the absolute cell counts (cells/L). Complete Blood Count + Differential 13.52 {x10E9/L} above high threshold See Below [facility] [place] Work Phone: [phone] Comment on above: Reference Range: 1.6 0 - 5.50 Metabolic Panelon 01-30-2020 Anion gap [Moles/Vol] 8 mmol/L below low threshold 10 - 20 [facility] Work Phone: [phone] Calcium [Mass/Vol] 8.8 mg/dL 8.6 - 10.3 [facility] Work Phone: [phone] Chloride [Moles/Vol] 101 mmol/L 98 - 107 [facility] [employer] Work Phone: [phone] CO2 [Moles/Vol] 32 mmol/L 21 - 32 [facility] [employer] Work Phone: [phone] Creatinine [Mass/Vol] 1.00 mg/dL See Below [facility] [employer] Work Phone: [phone] Comment on above: Reference Range: 0.5 0 - 1.05 Glucose [Mass/Vol] 128 mg/dL above high threshold 74 - 99 [facility] [employer] Work Phone: Potassium [Moles/Vol] 4.2 mmol/L 3.5 - 5.3 -[place] [facility] [employer] Work Phone: Sodium [Moles/Vol] 137 mmol/L 136 - 145 [facility] [employer] Work Phone: Urea nitrogen [Mass/Vol] 14 mg/dL 6 - 23 -[place] [facility] [employer] Work Phone: Otheron 01-30-2020 65 {mL/min/1.73m2} >[address] [facility] Work Phone: Comment on above: CALCULATIONS OF TONE MATED GFR ARE PERFORMED USING THE MDRD STUDY EQUATION FOR THE IDMS-TRACEABLE CREATININE METHODS. CLIN CHEM 2007;53:766-72 54 {mL/min/1.73m2} Abnormal >[address] [facility] [employer] Work Phone: Otheron 01-29-2020 Interpreted by: QMSNNW16/01/20 15:21MRN: [id number] Name: GEMA LUMA STUDY:HIP, UNILATERAL W/PELVIS WHEN PERFORMED 2-3 VIEWS; 01/29/2020 12:25 pm INDICATION:s/p right ROSSANA. COMPARISON:01/16/2020 ORDERING CLINICIAN:TASIA BIRD FINDINGS:Pelvis and right hip, three views Interval right total hip arthroplasty noted without periprostheticfracture or lucency. There is no dislocation. IMPRESSION:Right total hip arthroplasty without immediate complicationsElectronically signed by: RAJIV 01/30/20 15:21 Normal -[place] [facility] [employer] Work Phone: XR Pelvis 1 or 2 views Please click on the link to view the study images Normal [facility] [employer] Work Phone: Coronavirus 2019 RNA by PCR, Screening Asymptomticon 01-27-2020 Coronavirus 2019 RNA by PCR, Screening Asymptomtic NOT DETECTED See Below [facility] [employer] Work Phone: Comment on above: SOURCE: Nasal, [...] make patient management decisions.Fact sheet for providers: https://www.fda.gov/media/164250/downloadFact sheet for patients: https://www.fda.gov/media/695914/downloadThis test has received FDA Emergency Use Authorization (EUA) and has been verified by [facility] ([facility]). This test is only authorized for the duration of time that circumstances exist to justify the authorization of the emergency use of in vitro diagnostic tests for the detection of SARS-CoV-2 virus and/or diagnosis of COVID-19 infection under section 564(b)(1) of the Act, 21 U.S.C. 360bbb-3(b)(1), unless the authorization is terminated or revoked sooner. [facility] is certified under CLIA-88 as qualified to perform high complexity testing. Testing is performed in the [facility] laboratories located at [address] [place] [address]. Activated Partial Thrombopla stin Timeon 01-20-2020 aPTT Coag (PPP) [Time] 29 {sec} 25 - 35 [facility] Work Phone: Comment on above: THE APTT IS NO LONGE R USED FOR MONITORING UNFRACTIONATED HEPARIN THERAPY. FOR MONITORING HEPARIN THERAPY, USE THE HEPARIN ASSAY. Complete Blood Count + Diffe rentialon 01-20-2020 Basophils (Bld) [#/Vol] 0.04 {x10E9/L} See Below [facility] Work Phone: Comment on above: Reference Range: 0.0 0 - 0.10 Basophils/100 WBC (Bld) 0.5 % 0.0 - 2.0 [facility] Work Phone: [phone] Eosinophils (Bld) [#/Vol] 0.09 {x10E9/L} See Below [facility] Work Phone: Comment on above: Reference Range: 0.0 0 - 0.40 Eosinophils/100 WBC (Bld) 1.0 % 0.0 - 6.0 [facility] Work Phone: Erythrocyte distribution width (RBC) [Ratio] 12.9 % See Below [facility] Work Phone: Comment on above: Reference Range: 11. 5 - 14.5 Hematocrit (Bld) [Volume fraction] 44.6 % See Below [facility] Work Phone: [phone] Comment on above: Reference Range: 36. 0 - 46.0 Hemoglobin (Bld) [Mass/Vol] 14.5 g/dL See Below [facility] Work Phone: Comment on above: Reference Range: 12. 0 - 16.0 Lymphocytes (Bld) [#/Vol] 3.41 {x10E9/L} above high threshold See Below [facility] Work Phone: [phone] Comment on above: Reference Range: 0.8 0 - 3.00 Lymphocytes/100 WBC (Bld) 38.4 % See Below [facility] [employer] Work Phone: [phone] Comment on above: Reference Range: 13. 0 - 44.0 MCHC (RBC) [Mass/Vol] 32.5 g/dL See Below [facility] [employer] Work Phone: [phone] Comment on above: Reference Range: 32. 0 - 36.0 MCV (RBC) [Entitic vol] 100 fL 80 - 100 [facility] [place] Work Phone: Monocytes (Bld) [#/Vol] 0.81 {x10E9/L} above high threshold See Below [facility] Work Phone: Comment on above: Reference Range: 0.0 5 - 0.80 Monocytes/100 WBC (Bld) 9.1 % 2.0 - 10.0 [facility] Work Phone: Neutrophils (Bld) [#/Vol] 4.49 {x10E9/L} See Below [facility] Work Phone: [phone] Comment on above: Reference Range: 1.6 0 - 5.50 Neutrophils/100 WBC (Bld) 50.7 % See Below [facility] Work Phone: Comment on above: Reference Range: 40. 0 - 80.0 Platelets (Bld) [#/Vol] 261 {x10E9/L} 150 - 450 [facility] Work Phone: RBC (Bld) [#/Vol] 4.48 {x10E12/L} See Below [facility] Work Phone: Comment on above: Reference Range: 4.0 0 - 5.20 WBC (Bld) [#/Vol] 8.9 {x10E9/L} 4.4 - 11.3 [facility] Work Phone: [phone] Complete Blood Count + Differential 0.3 % 0.0 - 0.9 [facility] Work Phone: [phone] Comment on above: Immature Granulocyte Count (IG) includes promyelocytes, myelocytes and metamyelocytes but does not include bands. Percent differential counts (%) should be interpreted in the context of the absolute cell counts (cells/L). Fructosamine, Serumon 2019 Fructosamine [Moles/Vol] 265 umol/L 0-285 [facility] [place] Work Phone: Comment on above: Published reference interval for apparently healthy subjectsbetween age 20 and 60 is 205 - 285 umol/L and in a poorlycontrolled diabetic population is 228 - 563 umol/L with amean of 396 umol/L. Hematologyon 01-20-2020 INR Coag (PPP) [Relative time] 1.1 {INR} 0.9 - 1.1 -[facility] [place] [facility] [place] Work Phone: PT Coag (PPP) [Time] 13.0 {sec} See Below [facility] [place] Work Phone: Comment on above: Reference Range: 10. 1 - 13.3 Metabolic Panelon 01-20-2020 ALP [Catalytic activity/Vol] 100 U/L 33 - 136 [facility] Work Phone: Anion gap [Moles/Vol] 13 mmol/L 10 - 20 [facility] [place] Work Phone: Bilirubin [Mass/Vol] 0.6 mg/dL 0.0 - 1.2 [facility] Work Phone: Calcium [Mass/Vol] 9.7 mg/dL 8.6 - 10.3 [facility] [place] Work Phone: Chloride [Moles/Vol] 101 mmol/L 98 - 107 [facility] [place] Work Phone: CO2 [Moles/Vol] 32 mmol/L 21 - 32 [facility] [place] Work Phone: Creatinine [Mass/Vol] 1.01 mg/dL See Below [facility] [place] Work Phone: [phone] Comment on above: Reference Range: 0.5 0 - 1.05 Glucose [Mass/Vol] 88 mg/dL 74 - 99 [facility] [place] Work Phone: Potassium [Moles/Vol] 3.9 mmol/L 3.5 - 5.3 -[facility] [place] Work Phone: Protein [Mass/Vol] 7.6 g/dL 6.4 - 8.2 [facility] [place] Work Phone: Sodium [Moles/Vol] 142 mmol/L 136 - 145 -[facility] [place] Work Phone: Urea nitrogen [Mass/Vol] 15 mg/dL 6 - 23 -[facility] [place] Work Phone: Otheron 01-20-2020 100 1 [facility] [place] Work Phone: [phone] [facility] [place] Work Phone: [phone] [facility] [place] Work Phone[facility] [phone] [facility] [place] Work Phone: [phone] [facility] [place] Work Phone: [phone] [facility] [place] Work Phone: Sinus rhythm with oc casional premature ventricular complexes [facility] [place] Work Phone: [phone] [facility] [place] Work Phone: [email or web address] [email or web address]?Retriev eTestByDateTime?UqokbxgMW=[id number]&Date=20-01-2020&Time=1 4%3a54%3a12%3a00&TestType=ECG &Site=11&OutputType=PDF&Ext=P DF -[facility] [place] Work Phone: [phone] [facility] [place] Work Phone: [phone] MP-[facility] [employer] Work Phone: [phone] -[facility] [employer] Work Phone: [phone] -[facility] [employer] Work Phone: [phone] -[facility] [employer] Work Phone: [phone] -[facility] [employer] Work Phone: [phone] Albumin BCP dye [Mass/Vol] 4.4 g/dL 3.4 - 5.0 -[facility] [employer] Work Phone: [phone] With P-5'-P [Catalytic activity/Vol] 16 U/L 7 - 45 -[place] [facility] Work Phone: [phone] Comment on above: Patients treated wit h Sulfasalazine may generate falsely decreased results for ALT. AST With P-5'-P [Catalytic activity/Vol] 23 U/L 9 - 39 -[facility] [employer] Work Phone: [phone] 65 {mL/min/1.73m2} >[address] [facility] Work Phone: [phone] Comment on above: CALCULATIONS OF TONE MATED GFR ARE PERFORMED USING THE MDRD STUDY EQUATION FOR THE IDMS-TRACEABLE CREATININE METHODS. CLIN CHEM 2007;53:766-72 54 {mL/min/1.73m2} Abnormal >[address] [facility] Work Phone: [phone] Urinalysison 01-20-2020 Appearance (U) HAZY CLEAR -[facility] [employer] Work Phone: [phone] Color (U) YELLOW See Below -[facility] [employer] Work Phone: [phone] Comment on above: Reference Range: STR AW,YELLOW Glucose Ql (U) Negative NEGATIVE -[facility] [employer] Work Phone: [phone] Ketones Ql (U) Negative NEGATIVE -[place] [facility] Work Phone: Leukocyte esterase Test strip Ql (U) Negative NEGATIVE [facility] Work Phone: pH (U) 7.0 [pH] 5.0 - 8.0 -[place] [facility] Work Phone: Protein (U) [Mass/Vol] Negative NEGATIVE [facility] Work Phone: RBC (U) [#/Vol] Negative NEGATIVE [facility] Work Phone: Specific gravity (U) [Rel density] 1.019 See Below [facility] Work Phone: Comment on above: Reference Range: 1.0 05 - 1.035 Urinalysis Negative NEGATIVE [facility] Work Phone: Urinalysis 2.0 mg/dL above high threshold 0.0 - 1.9 [facility] Work Phone: Comment on above: Due to [...] Otheron 01-16-2020 Interpreted by: AGNES ALVARADO01/16/20 13:42MRN: [id number] Name: LUMA RIBEIRO STUDY:HIP, UNILATERAL W/PELVIS WHEN PERFORMED 2-3 VIEWS; Right; 01/16/20201:39 pm INDICATION:pain. ORDERING CLINICIAN:HARSHAL ALVARADO FINDINGS:AP lateral right hip x-ray shows end-stage tsuvwgstsswpulhnrt-te-ppvf arthrosis noted. 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 Electronically signed by: HARSHAL ALVARADO 01/16/20 13:42 Normal -[facility] [place] Work Phone: Vital Signs Date Time Vital Sign Value Performing Clinician Facility 05-07-2024 10:53-0500 Body height 157.5 cm Kamila Castillo [employer] Work Phone: [facility] 05-07-2024 10:53-0500 Body mass index (BMI) [Ratio] 48.87 kg/m2 Kamila Castillo [employer] Work Phone: [facility] 05-07-2024 10:53-0500 Body weight 121.2 kg Kamila Castillo [employer] Work Phone: [facility] 05-07-2024 10:53-0500 Diastolic blood pressure 82 mm[Hg] Kamila Castillo [employer] Work Phone: [facility] 05-07-2024 10:53-0500 Heart rate 88 /min Kamila Castillo [employer] Work Phone: [facility] 05-07-2024 10:53-0500 Respiratory rate 18 /min Kamila Castillo [employer] Work Phone: [facility] 05-07-2024 10:53-0500 SaO2% (BldA) [Mass fraction] 95 % Kamila Castillo [employer] Work Phone: [facility] 05-07-2024 10:53-0500 Systolic blood pressure 130 mm[Hg] Kamila Castillo [employer] Work Phone: [facility] 04-03-2024 08:32-0500 Body height 157.5 cm Kamila Castillo [employer] Work Phone: [facility] 04-03-2024 08:32-0500 Body mass index (BMI) [Ratio] 49.6 kg/m2 Kamila Castillo [employer] Work Phone: [facility] 04-03-2024 08:32-0500 Body weight 123.02 kg Kamila Castillo [employer] Work Phone: [facility] 04-03-2024 08:32-0500 Diastolic blood pressure 80 mm[Hg] Kamila Castillo [employer] Work Phone: [facility] 04-03-2024 08:32-0500 Heart rate 74 /min Kamila Bigg [employer] Work Phone: [facility] 04-03-2024 08:32-0500 Respiratory rate 17 /min Kamila Bigg [employer] Work Phone: [facility] 04-03-2024 08:32-0500 SaO2% (BldA) [Mass fraction] 98 % Kamila Bigg [employer] Work Phone: [facility] 04-03-2024 08:32-0500 Systolic blood pressure 126 mm[Hg] Kamila [place] [employer] Work Phone: [facility] 03-05-2024 11:19-0500 Body height 157.5 cm Kamila Bigg [employer] Work Phone: [facility] 03-05-2024 11:19-0500 Body mass index (BMI) [Ratio] 50.85 kg/m2 Kamila Bigg [employer] Work Phone: [facility] 03-05-2024 11:19-0500 Body weight 126.1 kg Kamila [place] [employer] Work Phone: [facility] 03-05-2024 11:19-0500 Diastolic blood pressure 76 mm[Hg] Kamila Bigg [employer] Work Phone: [facility] 03-05-2024 11:19-0500 Heart rate 102 /min Kamila Bigg [employer] Work Phone: [facility] 03-05-2024 11:19-0500 SaO2% (BldA) [Mass fraction] 98 % Kamila [place] [employer] Work Phone: [facility] 03-05-2024 11:19-0500 Systolic blood pressure 134 mm[Hg] Kamila [place] [employer] Work Phone: [facility] 02-22-2024 14:09-0400 Body height 157.5 cm Alex Tam DPM Work Phone: [facility] 02-22-2024 14:09-0400 Body mass index (BMI) [Ratio] 50.85 kg/m2 Alex Tam DPM Work Phone: [facility] 02-22-2024 14:09-0400 Body weight 126.1 kg Alex Tam DPM Work Phone: [facility] 02-22-2024 14:09-0400 Diastolic blood pressure 80 mm[Hg] Alex Tam DPM Work Phone: [facility] 02-22-2024 14:09-0400 Heart rate 82 /min Alex Tam DPM Work Phone: [facility] 02-22-2024 14:09-0400 Systolic blood pressure 126 mm[Hg] Alex Tam DPM Work Phone: [facility] 06-15-2023 14:42-0500 Body height 157.5 cm Alex Tam DPM Work Phone: [facility] 06-15-2023 14:42-0500 Body mass index (BMI) [Ratio] 50.48 kg/m2 Alex Tam DPM Work Phone: [facility] 06-15-2023 14:42-0500 Body weight 125.19 kg Alex Tam DPM Work Phone: [facility] 06-15-2023 14:42-0500 Diastolic blood pressure 82 mm[Hg] Alex Tam DPM Work Phone: [facility] 06-15-2023 14:42-0500 Heart rate 84 /min Alex Tam DPM Work Phone: [facility] 06-15-2023 14:42-0500 Systolic blood pressure 133 mm[Hg] Alex Brown DPM Work Phone: [facility] 06-01-2023 15:33-0500 Body height 157.5 cm Alex Tam DPM Work Phone: [facility] 06-01-2023 15:33-0500 Body mass index (BMI) [Ratio] 50.48 kg/m2 Alex Tam DPM Work Phone: [facility] 06-01-2023 15:33-0500 Body weight 125.19 kg Alex Tam DPM Work Phone: [facility] 06-01-2023 15:33-0500 Diastolic blood pressure 80 mm[Hg] Alex Tam DPM Work Phone: [facility] 06-01-2023 15:33-0500 Heart rate 79 /min Alex Tam DPM Work Phone: [facility] 06-01-2023 15:33-0500 Systolic blood pressure 130 mm[Hg] Alex Tam DPM Work Phone: [facility] 01-16-2020 15:36-0400 BMI (Body Mass Index) 46.35 kg/m2 Tasia [facility] [facility] [place] Work Phone: 01-16-2020 15:36-0400 Body weight 122.47 kg Tasia [facility] Work Phone: 01-16-2020 15:36-0400 BSA (Body Surface Area) 2.22 m2 Tasia Pelon [facility] Work Phone: 01-16-2020 15:36-0400 Height 162.56 cm T[facility] Work Phone: Encounters Encounter Date Encounter Type Care Provider Facility Start: 05-07-2024 End: 05-07-2024 Office outpatient visit 25 minutes Kamila Castillo NP Work Phone: [facility] Comment on above: Bronchitis (Primary Dx); Acute [...] Start: 04-29-2024 End: 04-29-2024 ambulatory Mala Sapp Facility:[facility] Start: 04-15-2024 End: 04-16-2024 Refill Kamila Castillo LINE MAINTENANCE Work Phone: [facility] Comment on above: Primary insomnia Start: 04-04-2024 End: 04-04-2024 Orders Only Kamila Castillo LINE MAINTENANCE Work Phone: [facility] Comment on above: Acute pulmonary omid a (CMS/HCC) (Primary Dx); Hypokalemia Start: 04-03-2024 End: 04-03-2024 Bamboo flowsheet Kamila Castillo LINE MAINTENANCE Work Phone: [facility] Start: 04-03-2024 End: 04-03-2024 Bamboo flowsheet Kamila Castillo LINE MAINTENANCE Work Phone: [facility] Start: 04-03-2024 End: 04-03-2024 ambulatory KAMILA CASTILLO Not Available Start: 04-03-2024 End: 04-03-2024 Office outpatient visit 25 minutes Kamila Castillo LINE MAINTENANCE Work Phone: [facility] Comment on above: Acute cough (Primary Dx); Rib pain; Fall, initial encounter; Shortness of breath; Lumbosacral spondylosis without myelopathy; Pain of right hand; Right wrist pain; Acute non-recurrent sinusitis of other sinus Start: 04-03-2024 End: 04-03-2024 ambulatory KAMILA CASTILLO Not Available Start: 03-07-2024 End: 03-07-2024 Bamboo flowsheet Waqas Dugan DO Work Phone: [employer] [facility] Start: 03-07-2024 End: 03-07-2024 Bamboo flowsheet Waqas Dugan DO Work Phone: [facility] Start: 03-07-2024 End: 03-07-2024 Patient encounter procedure Bullchinedu Ritchie DO Work Phone: [facility] Comment on above: Carpal tunnel syndro me on left (Primary Dx) Start: 03-07-2024 End: 03-07-2024 ambulatory WAQAS DUGAN Not Available Start: 03-05-2024 End: 03-05-2024 Bamboo flowsheet Kamila Castillo LINE MAINTENANCE Work Phone: [facility] Start: 03-05-2024 End: 03-05-2024 Bamboo flowsheet Kamila Castillo LINE MAINTENANCE Work Phone: [facility] Start: 03-05-2024 End: 03-05-2024 Office outpatient visit 25 minutes Kamila Castillo LINE MAINTENANCE Work Phone: [facility] Comment on above: Cellulitis of finger of left hand (Primary Dx); Flu vaccine need; Numbness of hand; Encounter for screening mammogram for malignant neoplasm of breast; Lymphadenopathy; Axillary pain, left; Ankylosing spondylitis of thoracic region ([facility]/HCC) Start: 03-05-2024 End: 03-05-2024 ambulatory KAMILA CASTILLO [...] 10-04-2022 Patient encounter procedure [facility] Work Phone: [facility] [place] Work Phone: Start: 10-04-[address] Roc Steele II Facility:[id number] Start: 09-05-2022 End: 09-05-[address] SARABJIT CORNEJO . Facility:[facility]1 Start: 09-03-2022 End: 09-03-2022 ambulatory SASHA DUTTA . Facility:[facility]1 Start: 06-06-2022 End: 06-07-[address] ROC STEELE Facility:[facility]1 Start: 12-16-2020 Patient encounter procedure Mone Weiss MD Work Phone: [facility] [place] Work Phone: Start: 11-25-2020 Chart Update Tasia Crawford Work Phone: [facility] [place] Work Phone: Start: 10-15-2020 Patient encounter procedure Carmen Bird MD Work Phone: [facility] [place] Work Phone: Start: 02-13-2020 Patient encounter procedure Tasia Bird [facility] [place] Work Phone: Start: 01-16-2020 Patient encounter procedure Tasia iBrd [facility] Work Phone: Procedures [...] [address] [place] [address] Alex Tam DPM [address] [address] [facility] Start: 05-14-2024 End: 05-14-2024 Patient encounter procedure 05/14/2024 11:00 AM EST Office Visit [facility] [address] [place] [address] Kamila Castillo, LINE MAINTENANCE [address] [place] [address] [facility] Start: 05-02-2024 End: 05-02-2024 Patient encounter procedure 05/02/2024 2:50 PM EST Procedure Visit [facility] [address] [place] [address] Alex Tam, DPM [address] [address] [facility] Start: 04-03-2024 End: 04-03-2025 [...] [address] [place] [address] Kamila Castillo NP [address] [facility] [address] [place] [address] Arrived [facility] Comment on above: Arrived Start: 03-07-2024 End: 03-07-2024 Patient encounter procedure 03/07/2024 11:00 AM EST Procedure Visit [facility] [place] [facility] [address] [place] [id number] Waqas Dugan, DO [address] [place] [address] Numbness of hand [facility] [place] [facility] Comment on above: Numbness of [...] Visit [facility] [address] [facility] [address] [place] [id number] Kamila Castillo LINE MAINTENANCE [address] [facility] [address] [place] [address] [facility] Start: 02-22-2024 End: 02-22-2024 [...] Visit [facility] [address] [facility] [address] [place] [address] Alex Tam DPM [address] [address] [facility] Start: 06-30-2023 Medicare Annual Wellness (AWV) Medicare Annual Wellness (AWV) [facility] Start: 06-29-2023 End: 06-29-2023 Patient encounter procedure 06/29/2023 2:30 PM EST Office Visit [facility] [address] [facility] [address] [place] [address] Alex Tam DPM [address] [address] [facility] Start: 06-15-2023 End: 06-15-2023 Patient encounter procedure 06/15/2023 2:30 PM EST Office Visit [facility] [address] [address] Alex Tam DPM [address] [address] [facility] Start: 10-17-2022 NPV, Provider: Roc Alvarado, Status: Pen, Time: 1:30 PM NPV, Provider: Roc Alvarado, Status: Pen, Time: 1:30 PM [facility] Work Phone: Start: 01-07-2021 FUV, Provider: Tasia Bird, Status: Pen, Time: 2:15 PM FUV, Provider: Tasia Bird, Status: Pen, Time: 2:15 PM [facility] Work Phone: Start: 12-03-2020 FUV, Provider: Tasia Bird, Status: Pen, Time: 12:45 PM FUV, Provider: Tasia Bird, Status: Pen, Time: 12:45 PM [facility] Work Phone: Immunizations Immunization Date Immunization Notes Care Provider [facility] 03-05-2024 Influenza, High-dose Seasonal, Quadrivalent, Preservative Free Kamila Castillo LINE MAINTENANCE Work Phone: [facility] 03-01-2023 Influenza, High-dose Seasonal, Quadrivalent, Preservative Free Alex Tam DPM Work Phone: [facility] 03-01-2023 influenza virus vacc ine, unspecified formulation Roc Steele MD Work Phone: [facility] 03-31-2022 Moderna Bivalent Pereira ster Vaccination Alex Yonatan DPM Work Phone: [facility] 03-23-2022 Influenza, High-dose Seasonal, Quadrivalent, Preservative Free Alex Yonatan DPM Work Phone: [facility] 01-28-2021 Influenza, Seasonal, Quadrivalent, Adjuvanted Alex Tam DPM Work Phone: [facility] 01-30-2020 influenza, injectabl e, quadrivalent, preservative free Alex Yonatan DPM Work Phone: [facility] 09-26-2019 zoster vaccine recombinant N todd Tam DPM Work Phone: [facility] 05-16-2019 zoster vaccine recombinant N todd Tam DPM Work Phone: [facility] 01-31-2018 influenza, high dose seasonal, preservative-free Alex Brown DPM Work Phone: [facility] 01-25-2017 influenza, high dose seasonal, preservative-free Alex Tam DPM Work Phone: [facility] 02-02-2016 influenza, injectabl e, quadrivalent, contains preservative Alex Tam DPM Work Phone: [facility] 02-07-2015 pneumococcal conjuga te vaccine, 13 valent Alex Tam DPM Work Phone: [facility] 01-30-2015 seasonal influenza, intradermal, preservative free Alex Tam DPM Work Phone: [facility] 02-07-2014 seasonal influenza, intradermal, preservative free Alex Tam DPM Work Phone: [facility] 12-11-2013 pneumococcal polysaccharide vaccine, 23 valent Alex Tam DPM Work Phone: [facility] 01-17-2012 zoster vaccine, live Zoyaleydi Tam DPM Work Phone: [facility] Payers Date Payer Category Payer Private Health Insurance [facility] [id number] 2022 Unknown 2008 Medicare [id number] 2008 Medicare [id number] 1959 Medicare [id number] 1959 Unknown [id number] 1946 Unknown [id number] 2.16.840.1.298151.3.579 .2.593 1946 Unknown [id number] 2.16.840.1.792980.3.579 .2.593 1946 Unknown [id number] 2.16.840.1.132928.3.579 .2.593 1946 Unknown [id number] 2.16.840.1.672424.3.579 .2.1068 1946 Unknown [id number] 2.16.840.1.413591.3.579 .2.1259 1946 Unknown [id number] 2.16.840.1.053356.3.579 .2.125 1946 Unknown [id number] 2.16.840.1.116751.3.579 .2.125 1946 Unknown [id number] 2.16.840.1.858085.3.579 .2.125 1946 Unknown [id number] 2.16.840.1.520052.3.579 .2.125 1946 Unknown [id number] 2.16.840.1.777228.3.579 .2.1259 1946 Unknown [id number] 2.16.840.1.844574.3.579 .2.125 1946 Unknown [id number] 2.16.840.1.188838.3.579 .2.1259 1946 Unknown [id number] 2.16.840.1.093952.3.579 .2.125 1946 Unknown [id number] 2.16.840.1.251671.3.579 .2.125 1946 Unknown [id number] 2.16.840.1.221275.3.579 .2.1259 1946 Unknown [id number] 2.16.840.1.680522.3.579 .2.1259 1946 Unknown [id number] 2.16.840.1.501794.3.579 .2.9 1946 Unknown [id number] 2.16.840.1.471782.3.579 .2.9 1946 Unknown [id number] 2.16.840.1.215139.3.579 .2.1258 1946 Unknown [id number] 2.16.840.1.906916.3.579 .2.1258 1946 Unknown [id number] 2.16.840.1.567042.3.579 .2.1258 1946 Unknown [id number] 2.16.840.1.758917.3.579 .2.1259 Social History Date Type Detail Facility Start: 11-25-2022 End: 07-06-2023 Never a smoker Never a smoker [facility] Work Phone: Start: 10-03-2022 Tobacco smoking stat [facility] Never smoked tobacco [facility] Start: [...] [facility] NEGATED: Highlighted row - [facility] [place] Work Phone: Functional Status Date Assessment Result Facility NEGATED: Highlighted row Functional performance Functional status health issues are not documented Disease [facility] [place] Work Phone: Mental Status Date Assessment Result Facility NEGATED: Highlighted row Cognitive function [Interpretation] Cognitive status health issues are not documented Disease [facility] [place] Work Phone: Clinical Notes 06-01-2023 to [...] TWICE DAILY 200 capsule 3 [] HYDROcodone-acetaminophen (Foster) 5-325 MG tablet Take 1 tablet by [...] Diagnosis Date Cardiomegaly Diverticulosis 2013 Edema Glaucoma ([facility]/HCC) Heart disease, unspecified History of lumbar surgery multiple times HTN (hypertension) (CMS/HCC) Hyperlipidemia (CMS/HCC) Insomnia Lumbago Lumbosacral spondylosis without myelopathy Myalgia, unspecified site Myositis Occlusion and stenosis of unspecified carotid artery without mention of cerebral infarction CARO (obstructive sleep apnea) Osteoarthrosis unspecified wheteher generalized or localized. unspecified site Osteopenia Paroxysmal supraventricular tachycardia ([facility]) Past Surgical History: Procedure Laterality Date AMB EPIDURAL STEROID INJECTION 2021 cervical neil ANKLE FRACTURE SURGERY 2018 CATARACT EXTRACTION Bilateral 2015 COLONOSCOPY 2013 HEART CATH 2016 IR INJECTION NERVE BLOCK 2018 and 2019 LUMBAR EPIDURAL INJECTION 2017 to 2021 LUMBAR TRANSFORAMINAL EPIDURAL STEROID INJECTION x7 NERVE BLOCK Left 03/26/2019 T12-L3 [place] TOTAL HIP ARTHROPLASTY Left [place]ancy [place] (01-29-2020 to 01-30-2020) RADIOFREQUENCY ABLATION Left 06/25/2019 [...] follow-ups on file. documented in this encounter [facility] 04-16-2024 Telephone encount er Note OARRS reviewed, Rx sent into patient's pharmacy. [facility] 04-16-2024 Miscellaneous Notes Formattin g of this note might be different from the original. OARRS reviewed, Rx sent into patient's pharmacy. documented in this encounter [facility] 04-03-2024 History of Presen t illness Narrative [...] breathing, coughing, lifting and movement. Treatments tried: Foster, cough syrup, muscle relaxer. The treatment provided [...] TWICE DAILY 200 capsule 3 [] HYDROcodone-acetaminophen (Foster) 5-325 MG tablet Take 1 tablet by [...] Diagnosis Date Cardiomegaly Diverticulosis 2012 Edema Glaucoma ([facility]/HCC) Heart disease, unspecified History of lumbar surgery [...] INJECTION x7 NERVE BLOCK Left 03/26/2019 T12-L3 [place] TOTAL HIP ARTHROPLASTY Left [place] (01-29-2020 to 01-30-2020) RADIOFREQUENCY ABLATION Left 06/25/2019 [...] breathing. Lumbosacral spondylosis without myelopathy - HYDROcodone-acetaminophen (Foster) 5-325 MG tablet; Take 1 tablet by [...] follow-ups on file. documented in this encounter [facility] 03-07-2024 Note Carpal tunnel syndro me, left, severe. Progressed substantially when compared to EDX evaluation in 2021. C8 radiculopathy, left, moderate. Progressed when compared to EDX evaluation in 2021 [facility] 03-07-2024 Note Carpal tunnel syndro me, left, severe. Progressed substantially when compared to EDX evaluation in 2021. C8 radiculopathy, left, moderate. Progressed when compared to EDX evaluation in 2021 [facility] 03-07-2024 History of Presen t illness Narrative Images from the original note were not included. Reason for Appointment: EMG Patient: Luma Ribeiro : 1945 EMG Computer: [employer] Referring Physician: Kamila Castillo CNP EMG: PABLO lipstick molder: Jimmy Gibson RT(R) Office Location: [place] Reason for EMG: c/o numbness/tingling in left hand/forearm especially in 2nd & 3rd digits, weakness in left hand. No hx of DM. Not on blood thinners. Comments: Procedure was explained to the patient who expressed understanding. Patient appeared to have tolerated the test well despite some discomfort due to the nature of the test. documented in this encounter [facility] 03-05-2024 History of Presen t illness Narrative [...] inciting event Pt feels she has decreased support director strength in left hand Hypertension This is [...] MOUTH TWICE DAILY 200 capsule 3 HYDROcodone-acetaminophen (Foster) 5-325 MG tablet Take 1 tablet by [...] at bedtime 90 tablet 1 [DISCONTINUED] HYDROcodone-acetaminophen (Foster) 5-325 MG tablet Take 1 tablet by [...] INJECTION x7 NERVE BLOCK Left 03/26/2019 T12-L3 [place] TOTAL HIP ARTHROPLASTY Left [place] (01-29-2020 to 01-30-2020) RADIOFREQUENCY ABLATION Left 06/25/2019 [...] need - Influenza, high-dose seasonal, quadrivalent, PF (ANZ207) (Fluzone High Dose Quad North 0.7mL dose) [...] follow-ups on file. documented in this encounter [facility] 02-29-2024 Telephone encount er Note OARRS reviewed, Rx sent into patient's pharmacy. [facility] 02-29-2024 Miscellaneous Notes Formattin g of this note might be different from the original. OARRS reviewed, Rx sent into patient's pharmacy. Hydrocodone 325 DDM IN [place] She had an appt today for a med follow up with kamila but had to change it due to her not being in. She said she has about 6 pills left. She did reschedule her med follow up for next Monday. documented in this encounter [facility] 02-29-2024 Telephone encount er Note Hydrocodone 325 DDM IN [place] She had an appt today for a med follow up with kamila but had to change it due to her not being in. She said she has about 6 pills left. She did reschedule her med follow up for next Monday. [facility] 01-29-2024 Telephone encount er Note Amlodipine sent [facility] 01-29-2024 Miscellaneous Notes Formattin g of this note might be different from the original. Amlodipine sent documented in this encounter [facility] 06-15-2023 History of Presen t illness Narrative [...] Diagnosis Date Cardiomegaly Diverticulosis 2013 Edema Glaucoma ([facility]) Heart disease, unspecified History of lumbar surgery multiple times HTN (hypertension) ([facility]) Hyperlipidemia ([facility]) Insomnia Lumbago Lumbosacral spondylosis without myelopathy Myalgia, [...] min Stress: No Stress Concern Present (11/25/2022) [employer] - Occupational Stress Questionnaire Feeling of Stress : Only a little Social Connections: Moderately Isolated (11/25/2022) Social Connection and Isolation Panel [NHANES] Frequency of Communication with Friends and Family: More than three times a week Frequency of Social Gatherings with Friends and Family: Once a week Attends [employer] Services: Never Active Member of Clubs or [...] Patient may continue with conservative treatments including [id number] anti-inflammatories and other treatments suggested today. Patient may want to be scheduled for surgical intervention in the near future. Patient have the right hallux subungual exostectomy with the lateral left hallux partial permanent nail avulsion in the near future Alex Tam DPM documented in this encounter [facility] 06-01-2023 History of Presen t illness Narrative Patient: Luma iRbeiro : 1945 PCP: Roc Steele MD SUBJECTIVE [...] surgery multiple times HTN (hypertension) (CMS/HCC) Hyperlipidemia (CMS/[facility]) Insomnia Lumbago Lumbosacral spondylosis without myelopathy Myalgia, [...] min Stress: No Stress Concern Present (11/25/2022) [employer] - Occupational Stress Questionnaire Feeling of Stress : Only a little Social Connections: Moderately Isolated (11/25/2022) Social Connection and Isolation Panel [NHANES] Frequency of Communication with Friends and Family: More than three times a week Frequency of Social Gatherings with Friends and Family: Once a week Attends [employer] Services: Never Active Member of Clubs or [...] Patient may continue with conservative treatments including [id number] anti-inflammatories and other treatments suggested today. Patient [...] Alex Tam DPM documented in this encounter [facility] Healthcare Evaluation note Diagnosis Subungual exostosis [...] Morbid (severe) obesity due to excess calories (CMS/[facility]) Body mass index (BMI) 45.0-49.9, adult (CMS/HCC) documented in this encounter [facility] NarrativeLuma is a 75-year-old female patient of Dr. Bird who is here for ultrasound-guided right intraarti cular shoulder injection. She has a history of pain and discomfort. She was seen and evaluated and referred to me for first lifetime intraarticular shoulder injection, which the patient accepts.-[facility] Work Phone: History of Present illness [...] normal pronation supination wrist flexion extension and support director strength. Distal pulses and sensation are intact. Limited forward flexion to about 25 degrees lateral abduction to about 15 unable to perform any external rotation but internal he can get to the small of her back. Herexam does not allow for much of a true Neer's Shelby or Dorado's test. * Diagnostics: See dictated report from today, previous outside CT scan report of the humerus reviewed, and is available in the [facility] chart. * Procedure: None * Assessment: Chronic [...] the patient's CT scan report reviewed in [facility] chart Other than the anterior medial dislocation [...] MD * Office: * . [facility] Work Phone: History of Present illness [...] min Stress: No Stress Concern Present (11/25/2022) [employer] - Occupational Stress Questionnaire Feeling of Stress : Only a little Social Connections: Moderately Isolated (11/25/2022) Social Connection and Isolation Panel [NHANES] Frequency of Communication with Friends and Family: More than three times a week Frequency of Social Gatherings with Friends and Family: Once a week Attends [employer] Services: Never Active Member of Clubs or [...] 9 Alex Tam DPM [facility]* Other Medical (Routine) - Closed Specialty Diagnoses / Procedures Referred By Aminah t Referred To Contact Neurology Diagnoses Numbness of hand Procedures [place] OFFICE/OUTPATIENT NEW HIGH MDM 60 MINUTES Kamila Castillo, LINE MAINTENANCE [address] [facility] [address] [place] [address] Phone: tel: fax: Waqas Dugan DO [address] [place] [address] Phone: tel: fax: Referral ID Status Reason Start Date Expiration Date V isits Requested Visits Authorized [id number] Closed Perform Procedure 03/05/2024 09/01/2024 1 1 [facility] Chief Complaint * New problem * Right shoulder pain MP Refer : RT shoulder ultra sound guided injection* Right shoulder pain, here for injection. 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 Summary Purpose Family History No Family [...] DATE CREATED AUTHOR AUTHOR'S ORGANIZ ATION 09/12/2022 [facility] dical Specialist DATE CREATED AUTHOR AUTHOR'S ORGANIZ ATION 10/09/2022 [facility] DATE CREATED AUTHOR AUTHOR'S ORGANIZ ATION 10/09/2022 [employer] DATE CREATED AUTHOR AUTHOR'S ORGANIZ ATION 04/10/2024 [facility] dical Specialists EPIC DATE CREATED AUTHOR AUTHOR'S ORGANIZ ATION 05/01/2024 [facility] ys[facility] Reason for Visit (unrecogniz ed [...] Care Teams (unrecognized sec tion and content) Superintendent Factory Relationship Specialty Start Date End Date Roc Steele MD [address] [facility] [address] [place] [address] PCP - ACO Reach 09/22/22 Roc Steele MD [address] [place], [place] [id number] PCP - General Internal Medicine 09/28/22 Superintendent Factory Relationship Specialty Start Date End Date Roc Steele MD [address] [place] [address] PCP - ACO Reach 09/22/22 Roc Steele MD [address] [place] [address] PCP - General Internal Medicine 09/28/22 Superintendent Factory Relationship Specialty Start Date End Date Roc Steele MD [address] [place] [address] PCP - ACO Reach 09/22/22 Roc Steele MD [address] [place] [address] PCP - General Internal Medicine 09/28/22 Superintendent Factory Relationship Specialty Start Date End Date Roc Steele MD [address] [place] [address] PCP - General Internal Medicine 09/28/22 Roc Steele MD [address] [place] [address] PCP - ACO Reach 08/30/23 Superintendent Factory Relationship Specialty Start Date End Date Roc Steele MD [address] [place] [address] PCP - General Internal Medicine 09/28/22 Roc Steele MD [address] [place] [address] PCP - ACO Reach 08/30/23 Superintendent Factory Relationship Specialty Start Date End Date Roc Steele MD [address] [place] [address] PCP - General Internal Medicine 09/28/22 Roc Steele MD [address] [place] [address] PCP - ACO Reach 08/30/23 Superintendent Factory Relationship Specialty Start Date End Date Roc Steele MD [address] [place] [address] PCP - General Internal Medicine 09/28/22 Roc Steele MD [address] [place] [address] PCP - ACO Reach 08/30/23 Superintendent Factory Relationship Specialty Start Date End Date Roc Steele MD [address] [place] [address] PCP - General Internal Medicine 09/28/22 Roc Steele MD [address] [place] [address] PCP - ACO Reach 08/30/23 Superintendent Factory Relationship Specialty Start Date End Date Roc Steele MD [address] [place] [address] PCP - General Internal Medicine 09/28/22 Roc Steele MD [address] [place] [address] PCP - ACO Reach 08/30/23 Superintendent [employer] Relationship Specialty Start Date End Date Roc Steele MD [address] [place] [address] PCP - General Internal Medicine 09/28/22 Roc Steele MD [address] [place] [address] PCP - ACO Reach 08/30/23 Waqas Dugan DO [address] [place] [id number] Referring Physician Neurology 03/07/24 Superintendent [employer] Relationship Specialty Start Date End Date Roc Steele MD [address] [place] [address] PCP - General Internal Medicine 09/28/22 Roc Steele MD [address] [place] [address] PCP - ACO Reach 08/30/23 Waqas Dugan DO [address] [place] [address] Referring Physician Neurology 03/07/24 Superintendent Factory Relationship Specialty Start Date End Date Roc Steele MD [address] [place] [address] PCP - General Internal Medicine 09/28/22 Roc Steele MD [address] [place] [address] PCP - ACO Reach 08/30/23 Waqas Dugan DO [address] [place] [address] Referring Physician Neurology 03/07/24 Superintendent [employer] Relationship Specialty Start Date End Date Roc Steele MD [address] [place] [address] PCP - General Internal Medicine 09/28/22 Roc Steele MD [address] [place] [address] PCP - ACO Reach 08/30/23 Waqas Dugan DO [address] [place] [address] Referring Physician Neurology 03/07/24 Superintendent Factory Relationship Specialty Start Date End Date Roc Steele MD [address] [place] [address] PCP - General Internal Medicine 09/28/22 Roc Steele MD [address] [place] [address] PCP - ACO Reach 08/30/23 Waqas Dugan DO [address] [place] [address] Referring Physician Neurology 03/07/24 Superintendent Factory Relationship Specialty Start Date End Date Roc Steele MD [address] [place] [address] PCP - General Internal Medicine 09/28/22 Roc Steele MD [address] [place] [address] PCP - ACO Reach 08/30/23 Superintendent Factory Relationship Specialty Start Date End Date Roc Steele MD [address] [facility] [address] [place] [address] PCP - General Internal Medicine 09/28/22 Roc Steele MD [address] [facility] [address] [place] [address] PCP - ACO Reach 08/30/23 Waqas Dugan DO [address] [place], [place] [id number] Referring Physician Neurology 03/07/24 FOR RECORDS PERTAINING [...] BE BASED ON THE PRIMARY CLINICAL RECORDS. [employer] [facility] provides no warranty or guarantee of the accuracy or completeness of information in this document.
[2024-05-12] MEDS: ENOXAPARIN SODIUM 40 MG/0.4 ML SYRINGE SUBQ (22:28)
[2024-05-12] MEDS: NORTRIPTYLINE HCL 25 MG CAPSULE PO (22:28)
[2024-05-13] VITALS (16 sets, daily range): BP systolic 117–129; BP diastolic 67–85; PULSE 74–125; TEMP 36.4–36.6; O2SAT 91–99
[2024-05-13] MEDS: ZOLPIDEM TARTRATE 10 MG TABLET PO ×2 (00:06→21:15)
[2024-05-13 06:17] LABS: Basophils Absolute Auto 0.1 10^3/uL (0.0-0.1); Basophils Percent Auto 0.6 % (0.2-2.0); Eosinophils Absolute Auto 0.1 10^3/uL (0.0-0.7); Eosinophils Percent Auto 0.5 % (0.9-7.0); Hematocrit 46.7 % (36.0-48.0); Hemoglobin 15.7 g/dL (12.0-16.0); Immature Granulocytes Abs Auto 0.18 10^3/uL (0.00-0.03); Immature Granulocytes Pct Auto 1.2 % (0.0-0.5); Lymphocytes Absolute Auto 6.2 10^3/uL (1.2-3.8); Lymphocytes Percent Auto 39.8 % (20.5-60.0); Mean Corpuscular HGB Conc 33.6 g/dL (29.9-35.2); Mean Corpuscular Hemoglobin 31.8 pg (26.7-34.0); Mean Corpuscular Volume 94.5 fL (81.0-99.0); Mean Platelet Volume 11.1 fL (9.5-13.5); Monocytes Absolute Auto 1.7 10^3/uL (0.3-0.8); Neutrophils Absolute Auto 7.3 10^3/uL (1.4-6.5); Neutrophils Percent Auto 46.9 % (43.0-75.0); Platelet Count 272 10^3/uL (150-450); Red Blood Count 4.94 10^6/uL (4.20-5.40); White Blood Count 15.6 10^3/uL (4.0-11.0)
[2024-05-13 06:34] LABS: Alanine Aminotransferase 22 U/L (14-59); Albumin Globulin Ratio 0.9; Albumin Level 3.4 g/dL (3.4-5.0); Alkaline Phosphatase 120 U/L (46-116); Anion Gap 13.2; Aspartate Amino Transferase 23 U/L (15-37); BUN Creatinine Ratio 14.5; Bilirubin Total 0.9 mg/dL (0.2-1.0); Calcium 9.4 mg/dL (8.5-10.1); Carbon Dioxide 30.3 mmol/L (21.0-32.0); Chloride 99 mmol/L (98-107); Estimated GFR (African America 42 (>=60 mL/min/1.73m^2); Estimated GFR (Non-African Ame 35 (>=60 mL/min/1.73m^2); Globulin 3.8 g/dL; Glucose 132 mg/dL (74-106); Potassium 3.5 mmol/L (3.5-5.1); Sodium 139 mmol/L (136-145); Total Protein 7.2 g/dL (6.4-8.2)
[2024-05-13 06:37] LABS: Cholesterol 176 mg/dL (<=200); HDL Cholesterol 59 mg/dL (40-60); Magnesium 1.8 mg/dL (1.8-2.4); Triglycerides 197 mg/dL (<=150); VLDL CHOLESTEROL 39.4 mg/dL
--- NOTE | 2024-05-13 07:00 | CA_ITS ---
Patient Name: LUMA RIBEIRO MR#: [id number] : 1945 Exam Date: 05/13/2024 Ordering Doctor: HAMZAH ARGUELLO ECHOCARDIOGRAM REPORT PROCEDURE: CA ECHO DOPPLER COMPLETE INDICATIONS: Acute CHF COMPARISON: None. DESCRIPTION: COMPLETE ECHOCARDIOGRAM Real-time transthoracic echocardiography with 2D, M-mode, spectral and color flow Doppler performed. QUALITY: Technical quality was good. LEFT VENTRICLE: Normal chamber size. Moderate concentric left ventricle hypertrophy . Global left ventricular systolic function is normal. Visual estimation of left ventricular ejection fraction is 65%. No regional wall motion abnormalities LV EF: DIASTOLIC: Grade I diastolic dysfunction. ATRIAL SEPTUM: LEFT ATRIUM: Normal chamber size. RIGHT ATRIUM: Normal chamber size. RIGHT VENTRICLE: Normal chamber size. Normal right ventricular systolic function. TRICUSPID VALVE: Normal mobility and thickness. No stenosis with trivial regurgitation. No evidence of pulmonary hypertension.RVSP 33mmHg MITRAL VALVE: Normal mobility and thickness. No evidence of mitral valve stenosis. Mild mitral annular calcification. No mitral regurgitation. AORTIC VALVE: Normal trileaflet appearance. No visible sclerosis. Normal leaflet mobility. No evidence of aortic valve stenosis. Trivial aortic regurgitation. AORTIC ROOT: Normal diameter and appearance. PULMONIC VALVE: Normal thickness and mobility. No stenosis. Trivial regurgitation. PERICARDIUM: No evidence of pericardial effusion. IVC: Collapes with inspirations. Normal size. PLEURA: CONCLUSION: Moderate concentric left ventricular hypertrophy Normal left ventricle systolic function without wall motion abnormalities, ejection fraction 65% Grade 1 diastolic dysfunction Normal right ventricle size and systolic function No evidence of pulmonary hypertension Trace aortic insufficiency Adult Echocardiography Procedure Report Left Ventricle LVEDD (3.7 - 5.6 cm): 3.61 cm LVESD (2.2 - 4.0 cm): 2.82 cm LVIVS thickness (0.6 - 1.2 cm): 1.67 cm LVPW thickness (0.5 - 1.0 cm): 1.33 cm e': 0.06 m/s E - e': 9.86 LVOT Max Gradient: 3.51 mm[Hg] LVOT Area (cm2): 0.94 m/s Peak Velocity (LVOT): 0.94 m/s Mean Velocity (LVOT): 0.57 m/s LVOT Diameter 1.90 cm Left Ventricular Ejection Fraction: 68.99 % Left Atrium LA Volume Index (2D A2C): 12.53 ml/m2 Left Atrium Systolic Dimension: 4.24 cm Mitral Valve MV E to A Ratio: 0.59 Mitral Valve A-Wave Peak Velocity: 0.98 m/s Mitral Valve E-Wave Peak Velocity: 0.58 m/s Right Ventricle RV Internal Diastolic Dimension: 2.83 cm Aorta AO Root Diam: 3.08 cm Ascending Ao Diam: 2.50 cm Aortic Valve AoV Area (Peak Twan): 2.11 cm2, 2.08 cm2 AoV Area (VTI): 2.73 cm2, 2.73 cm2 Peak Velocity(Antegrade Flow): 1.28 m/s, 1.24 m/s Peak Gradient(Antegrade Flow): 6.56 mm[Hg], 6.16 mm[Hg] Mean Velocity(Antegrade Flow): 0.86 m/s, 0.81 m/s Mean Gradient(Antegrade Flow): 3.46 mm[Hg], 3.09 mm[Hg] Velocity Time Integral: 17.78 cm, 17.81 cm Tricuspid Valve Peak Velocity (Regurgitant Flow): 1.87 m/s, 2.85 m/s, 2.74 m/s Pulmonic Valve Mean Gradient: 2.11 mm[Hg], 2.15 mm[Hg], 2.02 mm[Hg], 2.13 mm[Hg] Mean Velocity: 0.67 m/s, 0.68 m/s, 0.65 m/s, 0.66 m/s Peak Velocity: 0.99 m/s Peak Gradient: 3.73 mm[Hg], 3.73 mm[Hg], 3.73 mm[Hg], 4.49 mm[Hg] Right Atrium Right Atrium Systolic Pressure: 17.33 ml, 17.33 ml Dictated by: Nimisha Reid MD on 05/13/2024 at 16:59 Approved by: Nimisha Reid MD on 05/13/2024 at 17:06
[2024-05-13] MEDS: OMEPRAZOLE 40 MG CAPSULE.DR PO (08:40)
[2024-05-13] MEDS: DOXYCYCLINE HYCLATE 100 MG in 0.9 % SODIUM CHLORIDE 100 ML IV ×2 (08:40→21:16)
[2024-05-13] MEDS: HYDROCODONE/ACET 5-325 MG TABLET 1 TAB PO (08:40)
[2024-05-13] MEDS: 0.9 % SODIUM CHLORIDE 250 ML 10 ML IV (08:40)
[2024-05-13] MEDS: METOPROLOL SUCCINATE 50 MG TAB.ER.24H PO ×2 (08:40→21:16)
[2024-05-13] MEDS: AMLODIPINE BESYLATE 5 MG TABLET PO (08:40)
[2024-05-13] MEDS: ENOXAPARIN SODIUM 40 MG/0.4 ML SYRINGE SUBQ (08:41)
[2024-05-13] MEDS: GABAPENTIN 300 MG CAPSULE PO ×2 (08:41→21:15)
[2024-05-13] MEDS: ATORVASTATIN CALCIUM 10 MG TABLET PO (08:41)
[2024-05-13] MEDS: FUROSEMIDE 20 MG/2 ML VIAL IVP (08:41)
[2024-05-13] MEDS: MELOXICAM 7.5 MG TABLET 15 MG PO (08:41)
--- NOTE | 2024-05-13 08:41 | P.HP_ITS ---
HPI H&P: HPI History of Present Illness Chief complaint: Dizziness CHF PNEUMONIA Narrative: Patient is a 78 y.o female with past medical history of anxiety, Hypertension, GERD, HLD, Insomnia, sleep apnea and chronic shoulder pain. She presented to the ER yesterday for increased shortness of breath, cough, and congestion. This had been going on for about 2-3 weeks and she has been seen by her PCP and Urgent Care with several rounds of steroids, antibiotics and also a water pill . She has had no prior echocardiogram in our system. Her Flu and Covid testing were negative. Her Chest X-ray showed: Findings which may represent mild pulmonary interstitial edema, atypical infectious etiology or chronic lung changes. Lactate was 5.2, WBC's 18, proBNP 2700 and Cr 1.31 with GFR 35. Patient was treated for Community Acquired pneumonia with rocephin and Doxycycline and also for Acute Congestive Heart failure with Lasix 20mg IV x 1. She was admitted to the hospital service for further treatment and work up. Patient is not a smoker. She denies having a water resource consultant or any other specialists other than her [facility] eye doctor. She denies weight gain or lower ext edema. No prior history of CHF. Opioid HPI Opioid Management Most Recent Pain and Opioid Data: Last Pain Scale 2 05/13/24 08:40 05/13/24 Last Pain Assessment 05/13/24 09:40 Last Pain Assessment 05/13/24 11:04 Last MAR Pain Assessment 05/13/24 08:40 Last ORT Total Score 0 05/12/24 21:38 05/12/24 Last ORT Risk Category Low Risk 05/12/24 21:38 05/12/24 Review of Systems ROS Narrative ROS: a complete review of systems were reviewed with patient and are positive as below or listed in History of Chief Complaint. General: no fever, chills, night sweats Head: no headache, trauma, visual changes, nausea or vomiting Skin: no reported rashes, itching or sores Eyes: no blurriness of vision Ears: no reported hearing loss, vertigo, earache, or tinnitus Throat: no sore throat, hoarseness, swelling of neck, or tongue pain Heart: no chest pain Lungs: shortness of breath and cough GI: no diarrhea or vomiting/nausea Urinary: no urinary urgency, frequency or pain Neuro: no numbness or tingling HEM: no bleeding issues or bruising ENDO: no thyroid problems Psych: anxiety and depression [facility] Medical History (Updated 05/13/24 @ 08:54 by Maggie Sierra DO) GERD without esophagitis ?K21.9 - Gastro-esophageal reflux disease without esophagitis (ICD-10) Lump of left breast ?N63.20 - Unspecified lump in the left breast, unspecified quadrant (ICD-10) High cholesterol ?E78.00 - Pure hypercholesterolemia, unspecified (ICD-10) High blood pressure ?I10 - Essential (primary) hypertension (ICD-10) Anxiety ?F41.9 - Anxiety disorder, unspecified (ICD-10) Macular degeneration ?H35.30 - Unspecified macular degeneration (ICD-10) Degenerative disc disease Fibromyalgia ?M79.7 - Fibromyalgia (ICD-10) Right shoulder pain ?M25.511 - Pain in right shoulder (ICD-10) Sleep apnea ?G47.30 - Sleep apnea, unspecified (ICD-10) Surgical History Carpal tunnel syndrome, left ?G56.02 - Carpal tunnel syndrome, left upper limb (ICD-10) History of arthroplasty of right ankle ?Z96.661 - Presence of right artificial ankle joint (ICD-10) History of bilateral knee replacement ?Z96.653 - Presence of artificial knee joint, bilateral (ICD-10) History of right hip replacement ?Z96.641 - Presence of right artificial hip joint (ICD-10) Family History Mother Family history of CHF (congestive heart failure) Sister Family history of CHF (congestive heart failure) Son Family history of cancer Family history of diabetes mellitus Family history of hypertension Social History Within the past year, how often did you have a drink containing alcohol: never Score interpretation: A score less than 3 is consistent with normal alcohol consumption. Smoking status: Never smoker Non-prescribed substance use: denies use Previous occupational history: retired Highest level of school completed/degree received: GED or equivalent Are you now , , , , never or living with a partner: In a typical week, how many times do you talk on the telephone with family, friends, or neighbors: 3 or more times per week How often do you get together with friends or relatives: 3 or more times per week How often do you attend rastafari or jain services: never Little interest or pleasure in doing things: not at all Feeling down, depressed, or hopeless: not at all Feel stressed/tense/nervous/anxious/difficulty sleeping: not at all Do you think of yourself as: straight/heterosexual Gender Identity: female Meds Home Medications and Allergies Home Medications ?Medication ?Instructions ?Recorded ?Confirmed ?Type alprazolam 0.25 mg tablet 0.25 mg PO BID PRN anxiety 12/01/22 05/12/24 History amlodipine 5 mg tablet 5 mg PO DAILY 12/01/22 05/12/24 History gabapentin 300 mg capsule 300 mg PO BID 12/01/22 05/12/24 History hydrocodone 5 mg-acetaminophen 325 1 tab PO Q6H PRN pain 12/01/22 05/12/24 History mg tablet meloxicam 15 mg tablet 15 mg PO DAILY 12/01/22 05/12/24 History metoprolol succinate 50 mg 50 mg PO DAILY 12/01/22 05/12/24 History tablet,extended release 24 hr nortriptyline 10 mg capsule 30 mg PO BEDTIME 12/01/22 05/12/24 History pantoprazole 40 mg tablet,delayed 40 mg PO DAILY 12/01/22 05/12/24 History release simvastatin 10 mg tablet 10 mg PO DAILY 12/01/22 05/12/24 History zolpidem 10 mg tablet 10 mg PO DAILY 12/01/22 05/12/24 History tizanidine 4 mg tablet 4 mg PO DAILY 05/12/24 05/12/24 History Allergies Allergy/AdvReac Type Severity Reaction Status Date / Time clarithromycin Allergy Severe Rash Verified 12/01/22 14:27 moxifloxacin (From Avelox) Allergy Severe tongue Verified 12/01/22 14:27 swelling Sulfa (Sulfonamide Allergy Unknown Verified 12/01/22 14:27 Antibiotics) ciprofloxacin (From Cipro) Allergy Rash Verified 12/01/22 14:27 Exam Narrative Exam Narrative: General: Patient is alert, and oriented to person, place and time with normal affect, proper hygiene Skin: no visible rashes, or ulcers Head: atraumatic, acephalic Eyes: PERRLA, no nystagmus present, conjunctiva clear, no scleral icterus Ears: normal gross auditory acuity Nose: symmetric, no discharge, no maxillary or frontal sinus tenderness Neck: no masses palpated, normal thyroid Heart: Normal rate and rhythm, no murmurs/rubs/gallops Lungs: no audible wheezes, crackles and normal breath sounds all lung baker Abdomen: Normal audible bowel sounds, no distension, No palpable masses, no organomegaly, no rebound/guarding/ or rigidity Musculoskeletal:mild swelling bilateral lower extremities Neuro: CN II-X grossly intact Constitutional Vital Signs, click to edit/add: Last Vital Signs Temp 97.8 F 05/13/24 04:00 Pulse 117 H 05/13/24 07:37 Resp 20 05/13/24 04:00 BP 124/68 05/13/24 04:00 Pulse Ox 95 05/13/24 04:00 O2 Del Method Room Air 05/13/24 04:00 Results Labs Labs: Short CBC 05/12/24 05/13/24 Range/Units 18:00 05:49 WBC 17.8 H 15.6 H (4.0-11.0) 10^3/uL Hgb 16.2 H 15.7 (12.0-16.0) g/dL Hct 48.5 H 46.7 (36.0-48.0) % Plt Count 286 272 (150-450) 10^3/uL BMP 05/12/24 05/13/24 18:00 05:49 Sodium 140 139 Potassium 3.6 3.5 Chloride 99 99 Carbon Dioxide 31.7 30.3 BUN 16.0 21.0 H Creatinine 1.31 H 1.45 H Glucose 141 H 132 H Calcium 9.9 9.4 Liver Function 05/13/24 Range/Units 05:49 Total Bilirubin 0.9 (0.2-1.0) mg/dL AST 23 (15-37) U/L ALT 22 (14-59) U/L Alkaline Phosphatase 120 H (46-116) U/L Albumin 3.4 (3.4-5.0) g/dL Assessment and Plan Assessment and Plan (1) Acute CHF (congestive heart failure): Assessment and Plan: pulmonary edema seen on X-ray and elevated ProBNP of 2700; I have no prior Echo, will check today, Cardiology consult. Continue metoprolol, Lasix 20mg IV BID, strict I&O's, fluid restriction and salt restriction. DAily weights. Monitor the need for oxygen. Qualifiers: Heart failure type: unspecified Qualified Code(s): I50.9 - Heart failure, unspecified (2) Acute kidney injury: Assessment and Plan: Cr 1.31, no prior history of CKD, up to 1.45, hold mobic, monitor closely with diuresis. could be steroid induced (3) Community acquired pneumonia: Assessment and Plan: Continue IV Doxycycline and Rocephin. Leukocytosis but could be steroid induced, elevated lactate 5.8. Cannot give fluids due to current overload status. Qualifiers: Laterality: left Lung location: lower lobe of lung Qualified Code(s): J18.9 - Pneumonia, unspecified organism (4) High cholesterol: Assessment and Plan: continue simvastatin (5) High blood pressure: Assessment and Plan: continue metoprolol and amlodipine, add elda or ARB if not medically optimized Qualifiers: Hypertension type: primary hypertension Qualified Code(s): I10 - Essential (primary) hypertension (6) Anxiety: Assessment and Plan: continue alprazolam, nortriptyline, ambien for insomnia (7) Right shoulder pain: Assessment and Plan: continue gabapentin Qualifiers: Chronicity: chronic Qualified Code(s): M25.511 - Pain in right shoulder; G89.29 - Other chronic pain (8) Sleep apnea: Qualifiers: Sleep apnea type: unspecified type Qualified Code(s): G47.30 - Sleep apnea, unspecified (9) GERD without esophagitis: Assessment and Plan: continue protonix Plan Patient is a full code continue heparin for DVT prophylaxis due to renal function Patient is inpatient status and is expected to cross 2 midnights for treatment of her acute CHF, pneumonia
--- NOTE | 2024-05-13 11:17 | CM.NOTE ---
Rounds made with Dr. Sierra, discussed plan of care with pt. Dr. Sierra will consult [employer] and have echo done today for further recommendations.
--- NOTE | 2024-05-13 13:13 | SWNOTE1 ---
Important Message from [employer] reviewed and discussed with patient. Pt. verbalized understanding and signed the form. Original given to patient and copy placed in patient?s chart.
--- NOTE | 2024-05-13 13:13 | SWNOTE1 ---
SW met with pt to discuss dc needs. Pt lives at home with her . Pt does have a walker at home that she does use. Pt's is at the [place] and he should be coming home this week. Pt is agreeable to have HH services coming in. She voiced they have used [facility] in the past. SW to send referral. Referral sent to [facility]. Referral included face sheet, ED note, H&P, provider notes, case management report, and PT/OT notes.
--- NOTE | 2024-05-13 17:56 | P.CACN_ITS ---
History of Present Illness History of Present Illness Consult date: 05/13/24 Requesting physician: Maggie Sierra Chief complaint: Congestive heart failure Narrative: Patient is 78-year-old female with history of hypertension, hyperlipidemia, carotid stenosis, obesity, sleep apnea, and chronic kidney disease Patient presented with worsening shortness of breath and cough for about 2 to 3 weeks. She was treated as outpatient by steroids, antibiotics and water pills without significant improvement therefore she came to the hospital. She denies any associated chest pain. At the beginning she felt some chills. She denies orthopnea or paroxysmal nocturnal dyspnea or dizziness. She admits that she feels that her heart rate is going up when she gets up and moves around. She denies legs edema or discomfort on exertion When she came in her white blood count was elevated at 15.6 with proBNP 2700, creatinine 1.3, GFR 35, potassium 3.6, troponin and TSH normal. Chest x-ray mild interstitial edema. EKG showed sinus rhythm with left axis deviation and poor R progression in precordial leads and nonspecific T wave changes. She was started on IV antibiotics for possible pneumonia she was given Lasix IV 20 mg twice daily. She feels now much better. No cough. Her shortness of breath is much better. She is on room air. She still reports that she feels that her heart races when she gets up and moves around. Her monitor shows sinus tachycardia Review of Systems ROS Narrative All systems were reviewed and they were negative except endings noted above in the history [facility] Medical History (Updated 05/13/24 @ 08:54 by Maggie Sierra, DO) GERD without esophagitis ?K21.9 - Gastro-esophageal reflux disease without esophagitis (ICD-10) Lump of left breast ?N63.20 - Unspecified lump in the left breast, unspecified quadrant (ICD-10) High cholesterol ?E78.00 - Pure hypercholesterolemia, unspecified (ICD-10) High blood pressure ?I10 - Essential (primary) hypertension (ICD-10) Anxiety ?F41.9 - Anxiety disorder, unspecified (ICD-10) Macular degeneration ?H35.30 - Unspecified macular degeneration (ICD-10) Degenerative disc disease Fibromyalgia ?M79.7 - Fibromyalgia (ICD-10) Right shoulder pain ?M25.511 - Pain in right shoulder (ICD-10) Sleep apnea ?G47.30 - Sleep apnea, unspecified (ICD-10) Surgical History Carpal tunnel syndrome, left ?G56.02 - Carpal tunnel syndrome, left upper limb (ICD-10) History of arthroplasty of right ankle ?Z96.661 - Presence of right artificial ankle joint (ICD-10) History of bilateral knee replacement ?Z96.653 - Presence of artificial knee joint, bilateral (ICD-10) History of right hip replacement ?Z96.641 - Presence of right artificial hip joint (ICD-10) Family History Mother Family history of CHF (congestive heart failure) Sister Family history of CHF (congestive heart failure) Son Family history of cancer Family history of diabetes mellitus Family history of hypertension Social History Within the past year, how often did you have a drink containing alcohol: never Score interpretation: A score less than 3 is consistent with normal alcohol consumption. Smoking status: Never smoker Non-prescribed substance use: denies use Previous occupational history: retired Highest level of school completed/degree received: GED or equivalent Are you now , , , , never or living with a partner: In a typical week, how many times do you talk on the telephone with family, friends, or neighbors: 3 or more times per week How often do you get together with friends or relatives: 3 or more times per week How often do you attend baptist or yazdanism services: never Little interest or pleasure in doing things: not at all Feeling down, depressed, or hopeless: not at all Feel stressed/tense/nervous/anxious/difficulty sleeping: not at all Do you think of yourself as: straight/heterosexual Gender Identity: female Meds Home Medications and Allergies Home Medications ?Medication ?Instructions ?Recorded ?Confirmed ?Type alprazolam 0.25 mg tablet 0.25 mg PO BID PRN anxiety 12/01/22 05/12/24 History amlodipine 5 mg tablet 5 mg PO DAILY 12/01/22 05/12/24 History gabapentin 300 mg capsule 300 mg PO BID 12/01/22 05/12/24 History hydrocodone 5 mg-acetaminophen 325 1 tab PO Q6H PRN pain 12/01/22 05/12/24 History mg tablet meloxicam 15 mg tablet 15 mg PO DAILY 12/01/22 05/12/24 History metoprolol succinate 50 mg 50 mg PO DAILY 12/01/22 05/12/24 History tablet,extended release 24 hr nortriptyline 10 mg capsule 30 mg PO BEDTIME 12/01/22 05/12/24 History pantoprazole 40 mg tablet,delayed 40 mg PO DAILY 12/01/22 05/12/24 History release simvastatin 10 mg tablet 10 mg PO DAILY 12/01/22 05/12/24 History zolpidem 10 mg tablet 10 mg PO DAILY 12/01/22 05/12/24 History tizanidine 4 mg tablet 4 mg PO DAILY 05/12/24 05/12/24 History Allergies Allergy/AdvReac Type Severity Reaction Status Date / Time clarithromycin Allergy Severe Rash Verified 12/01/22 14:27 moxifloxacin (From Avelox) Allergy Severe tongue Verified 12/01/22 14:27 swelling Sulfa (Sulfonamide Allergy Unknown Verified 12/01/22 14:27 Antibiotics) ciprofloxacin (From Cipro) Allergy Rash Verified 12/01/22 14:27 Exam Narrative Exam Narrative: She is alert, oriented, not in apparent distress HEENT within normal limits Neck supple, normal range of motion, no carotid bruit, jugular venous pressure is normal Lungs clear to auscultation without rales rhonchi or wheezes Cardiovascular system regular rate and rhythm, mildly tachycardic, normal S1 and S2, no gallop or murmur or click Abdomen obese soft benign no organomegaly or tenderness Extremities no edema or cyanosis or clubbing Neurological examination grossly normal Constitutional Vital Signs, click to edit/add: Last Vital Signs Temp 97.8 F 05/13/24 16:25 Pulse 108 H 05/13/24 17:48 Resp 18 05/13/24 16:25 BP 129/85 05/13/24 16:25 Pulse Ox 92 L 05/13/24 16:25 O2 Del Method Room Air 05/13/24 16:25 Results Labs and Meds Lab results: Cardiac Enzymes 05/13/24 Range/Units 05:49 AST 23 (15-37) U/L Lipids 05/13/24 Range/Units 05:49 Triglycerides 197 H (<=150) mg/dL Cholesterol 176 (<=200) mg/dL HDL Cholesterol 59 (40-60) mg/dL Cholesterol/HDL Ratio 3.0 CBC 05/12/24 05/13/24 Range/Units 18:00 05:49 WBC 17.8 H 15.6 H (4.0-11.0) 10^3/uL RBC 5.10 4.94 (4.20-5.40) 10^6/uL Hgb 16.2 H 15.7 (12.0-16.0) g/dL Hct 48.5 H 46.7 (36.0-48.0) % Plt Count 286 272 (150-450) 10^3/uL Neut # (Auto) 7.3 H (1.4-6.5) 10^3/uL Lymph # (Auto) 6.2 H (1.2-3.8) 10^3/uL [place] # (Auto) 1.7 H (0.3-0.8) 10^3/uL Eos # (Auto) 0.1 (0.0-0.7) 10^3/uL Baso # (Auto) 0.1 (0.0-0.1) 10^3/uL Comprehensive Metabolic Panel 05/12/24 05/13/24 Range/Units 18:00 05:49 Sodium 140 139 (136-145) mmol/L Potassium 3.6 3.5 (3.5-5.1) mmol/L Chloride 99 99 (98-107) mmol/L Carbon Dioxide 31.7 30.3 (21.0-32.0) mmol/L BUN 16.0 21.0 H (7.0-18.0) mg/dL Creatinine 1.31 H 1.45 H (0.55-1.02) mg/dL Glucose 141 H 132 H (74-106) mg/dL Calcium 9.9 9.4 (8.5-10.1) mg/dL AST 23 (15-37) U/L ALT 22 (14-59) U/L Alkaline Phosphatase 120 H (46-116) U/L Total Protein 7.2 (6.4-8.2) g/dL Albumin 3.4 (3.4-5.0) g/dL Intake and Output 05/13/24 05/13/2425 07:59 15:59 23:59 Intake Total 200 / 250 340 / 340 Output Total 650 / 650 Balance -450 / -400 340 / 340 Intake: Oral 200 / 200 240 / 240 IV 100 / 100 Doxycycline Hyclate 100 mg In 0 100 / 100 .9 % Sodium Chloride 100 ml @ 100 mls/hr IV Q12H [facility] Rx#: [id number] Output: Urine 650 / 650 EKG 05/15/2024 showed sinus rhythm, left axis deviation, poor R progression in the precordial leads, nonspecific T wave changes. No significant changes from prior EKG Echo 05/13/2024 Moderate concentric left ventricle hypertrophy Normal left ventricle systolic function without wall motion abnormalities, ejection fraction 65% Grade 1 diastolic dysfunction Trace aortic insufficiency Assessment and Plan Assessment and Plan (1) Acute CHF (congestive heart failure): Assessment and Plan: Mild, diastolic, most likely due to pneumonia. She diuresed very well on Lasix and I think she is on the hydration side since she has sinus tachycardia particularly when she stands up Qualifiers: Heart failure type: unspecified Qualified Code(s): I50.9 - Heart failure, unspecified (2) Community acquired pneumonia: Assessment and Plan: On IV antibiotics, improving Qualifiers: Laterality: left Lung location: lower lobe of lung Qualified Code(s): J18.9 - Pneumonia, unspecified organism (3) High blood pressure: Qualifiers: Hypertension type: primary hypertension Qualified Code(s): I10 - Essential (primary) hypertension (4) High cholesterol: (5) Acute kidney injury: (6) Anxiety: (7) Right shoulder pain: Qualifiers: Chronicity: chronic Qualified Code(s): M25.511 - Pain in right shoulder; G89.29 - Other chronic pain (8) Sleep apnea: Qualifiers: Sleep apnea type: unspecified type Qualified Code(s): G47.30 - Sleep apnea, unspecified (9) GERD without esophagitis: Plan Continue IV antibiotics I will stop Lasix IV and amlodipine in favor of increasing Toprol-XL to 50 mg twice daily to control her heart rate Stay off Lasix for tomorrow and probably resume Lasix oral on 05/15/2024 20 or 40 mg daily. No further cardiac workup is needed
[2024-05-13] MEDS: CEFTRIAXONE 1,000 MG in 0.9 % SODIUM CHLORIDE 50 ML 100 MG IV (20:23)
[2024-05-13] MEDS: NORTRIPTYLINE HCL 25 MG CAPSULE PO (21:15)
[2024-05-13] MEDS: TIZANIDINE HCL 4 MG TABLET PO (21:16)
[2024-05-14] VITALS (10 sets, daily range): BP systolic 108–119; BP diastolic 73–78; PULSE 64–98; TEMP 36.4; O2SAT 92–93
[2024-05-14 06:17] LABS: Basophils Absolute Auto 0.1 10^3/uL (0.0-0.1); Basophils Percent Auto 0.5 % (0.2-2.0); Eosinophils Absolute Auto 0.1 10^3/uL (0.0-0.7); Eosinophils Percent Auto 1.1 % (0.9-7.0); Hematocrit 42.2 % (36.0-48.0); Immature Granulocytes Abs Auto 0.14 10^3/uL (0.00-0.03); Immature Granulocytes Pct Auto 1.1 % (0.0-0.5); Lymphocytes Absolute Auto 4.7 10^3/uL (1.2-3.8); Lymphocytes Percent Auto 37.3 % (20.5-60.0); Mean Corpuscular HGB Conc 33.2 g/dL (29.9-35.2); Mean Corpuscular Hemoglobin 32.1 pg (26.7-34.0); Mean Corpuscular Volume 96.8 fL (81.0-99.0); Mean Platelet Volume 10.8 fL (9.5-13.5); Monocytes Absolute Auto 1.3 10^3/uL (0.3-0.8); Monocytes Percent Auto 10.6 % (1.7-12.0); Neutrophils Absolute Auto 6.2 10^3/uL (1.4-6.5); Neutrophils Percent Auto 49.4 % (43.0-75.0); Platelet Count 223 10^3/uL (150-450); Red Blood Count 4.36 10^6/uL (4.20-5.40); Red Cell Distribution Width 13.2 % (11.0-15.0); White Blood Count 12.5 10^3/uL (4.0-11.0)
[2024-05-14 06:35] LABS: Alanine Aminotransferase 16 U/L (14-59); Albumin Globulin Ratio 0.8; Albumin Level 2.7 g/dL (3.4-5.0); Alkaline Phosphatase 101 U/L (46-116); Aspartate Amino Transferase 24 U/L (15-37); BUN Creatinine Ratio 18.7; Bilirubin Total 0.5 mg/dL (0.2-1.0); Calcium 8.8 mg/dL (8.5-10.1); Carbon Dioxide 28.6 mmol/L (21.0-32.0); Chloride 100 mmol/L (98-107); Estimated GFR (African America 31 (>=60 mL/min/1.73m^2); Estimated GFR (Non-African Ame 25 (>=60 mL/min/1.73m^2); Globulin 3.5 g/dL; Glucose 141 mg/dL (74-106); Potassium 3.6 mmol/L (3.5-5.1); Sodium 138 mmol/L (136-145); Total Protein 6.2 g/dL (6.4-8.2)
[2024-05-14] MEDS: ENOXAPARIN SODIUM 30 MG/0.3 ML SYRINGE SUBQ (09:02)
[2024-05-14] MEDS: OMEPRAZOLE 40 MG CAPSULE.DR PO (09:03)
[2024-05-14] MEDS: METOPROLOL SUCCINATE 50 MG TAB.ER.24H PO (09:03)
[2024-05-14] MEDS: DOXYCYCLINE HYCLATE 100 MG in 0.9 % SODIUM CHLORIDE 100 ML IV (09:03)
[2024-05-14] MEDS: HYDROCODONE/ACET 5-325 MG TABLET 1 TAB PO (09:03)
[2024-05-14] MEDS: ATORVASTATIN CALCIUM 10 MG TABLET PO (09:03)
[2024-05-14] MEDS: GABAPENTIN 300 MG CAPSULE PO (09:03)
--- NOTE | 2024-05-14 09:34 | PM.PN ---
Exam Constitutional Vital Signs, click to edit/add: Last Vital Signs Temp 97.5 F L 05/14/24 08:00 Pulse 64 05/14/24 08:00 Resp 14 05/14/24 08:00 BP 119/78 05/14/24 08:00 Pulse Ox 93 L 05/14/24 08:00 O2 Del Method Room Air 05/14/24 08:00 Progress Note: Objective Labs Labs: Short CBC 05/14/24 Range/Units 06:01 WBC 12.5 H (4.0-11.0) 10^3/uL Hgb 14.0 (12.0-16.0) g/dL Hct 42.2 (36.0-48.0) % Plt Count 223 (150-450) 10^3/uL BMP 05/14/24 06:01 Sodium 138 Potassium 3.6 Chloride 100 Carbon Dioxide 28.6 BUN 36.0 H Creatinine 1.93 H Glucose 141 H Calcium 8.8 Liver Function 05/14/24 Range/Units 06:01 Total Bilirubin 0.5 (0.2-1.0) mg/dL AST 24 (15-37) U/L ALT 16 (14-59) U/L Alkaline Phosphatase 101 (46-116) U/L Albumin 2.7 L (3.4-5.0) g/dL Progress Note: A&P Assessment and Plan (1) Acute CHF (congestive heart failure): Qualifiers: Heart failure type: unspecified Qualified Code(s): I50.9 - Heart failure, unspecified (2) Community acquired pneumonia: Qualifiers: Laterality: left Lung location: lower lobe of lung Qualified Code(s): J18.9 - Pneumonia, unspecified organism (3) High blood pressure: Qualifiers: Hypertension type: primary hypertension Qualified Code(s): I10 - Essential (primary) hypertension (4) High cholesterol: (5) Acute kidney injury: (6) Anxiety: (7) Right shoulder pain: Qualifiers: Chronicity: chronic Qualified Code(s): M25.511 - Pain in right shoulder; G89.29 - Other chronic pain (8) Sleep apnea: Qualifiers: Sleep apnea type: unspecified type Qualified Code(s): G47.30 - Sleep apnea, unspecified (9) GERD without esophagitis:
--- NOTE | 2024-05-14 10:29 | SWNOTE1 ---
SW spoke to [facility] and they are able to accept.
--- NOTE | 2024-05-14 11:17 | REH.PTDLY ---
Physical Therapy Daily Note PT Daily Note/Assess Start: 05/14/24 10:54 Freq: Status: Active Protocol: Document 05/14/24 10:55 JOLEEN (Rec: 05/14/24 11:17 JOLEEN [id number]) Physical Therapy Daily Note/Assessment Time In 10:31 Time Out 10:46 Subjective Pt awake upon arrival, states she hasn't been able to urinate but may be able to now. Agreeable to therapy Therapeutic Exercise 5 Minutes (minutes) Therapeutic Exercise 0 Units Therapeutic Exercise Instructed in seated B LE exs 20x ea for improved Treatment strength. Pt performs HR/TR, LAQ, marching and hip abd. Therapeutic Activity 10 Minutes (minutes) Therapeutic Activity 1 Units Therapeutic Activity Ind with supine to sit transfers. Sit to stand Comments transfers CGA. Gait training into restroom 20 ft with RW. CGA with toilet transfers with cues for pt to use grab bar on wall for safety. Pt stands for 2 mins for self care in bathroom. Gait training another 25 feet CGA. Pt sits up in chair post rx with call light at hand and all needs met. Total Therapy 15 Minutes Total Physical 1 Therapy Units Daily Note Summary Pt does well with transfers. Gait training CGA for safety with some mild fatigue noted. Pt would benefit from HH at [place].
--- NOTE | 2024-05-14 12:12 | CM.NOTE ---
Rounds made with Dr. Sierra, pt will discharge to home today with [facility]. Pt will f/u with PCP on Monday or beginning of next week. MS secretary to the vice president setting up appt.
--- NOTE | 2024-05-14 12:49 | PM.DS1 ---
DS: Providers Provider Date of admission: 05/12/24 20:57 Primary care physician: RJEI STEELE Admitting clinician: Maggie Sierra Consults: 05/13/24 07:00 Consult to Cardiology Routine Reason for consultation: CHF exac Has provider been notified: No 05/13/24 08:55 Occupational Therapy Eval and Treat Routine Reason for consultation: weakness Has provider been notified: No Physical Therapy Eval and Treat Routine Reason for consultation: weakness Has provider been notified: No Discharging clinician: Maggie Sierra DS: Diagnosis Discharge Diagnosis (1) Acute CHF (congestive heart failure): Qualifiers: Heart failure type: unspecified Qualified Code(s): I50.9 - Heart failure, unspecified (2) Community acquired pneumonia: Qualifiers: Laterality: left Lung location: lower lobe of lung Qualified Code(s): J18.9 - Pneumonia, unspecified organism (3) High blood pressure: Qualifiers: Hypertension type: primary hypertension Qualified Code(s): I10 - Essential (primary) hypertension (4) High cholesterol: (5) Acute kidney injury: (6) Anxiety: (7) Right shoulder pain: Qualifiers: Chronicity: chronic Qualified Code(s): M25.511 - Pain in right shoulder; G89.29 - Other chronic pain (8) Sleep apnea: Qualifiers: Sleep apnea type: unspecified type Qualified Code(s): G47.30 - Sleep apnea, unspecified (9) GERD without esophagitis: DS: Summary Hospital Course Hospital Course: Patient is a 78 y.o female with past medical history of anxiety, Hypertension, GERD, HLD, Insomnia, sleep apnea and chronic shoulder pain. She presented to the ER for increased shortness of breath, cough, and congestion. This had been going on for about 2-3 weeks and she has been seen by her PCP and Urgent Care with several rounds of steroids, antibiotics and also a water pill . She has had no prior echocardiogram in our system. Her Flu and Covid testing were negative. Her Chest X-ray showed: Findings which may represent mild pulmonary interstitial edema, atypical infectious etiology or chronic lung changes. Lactate was 5.2, WBC's 18, proBNP 2700 and Cr 1.31 with GFR 35. Patient was treated for Community Acquired pneumonia with rocephin and Doxycycline, PRN nebs and overall did well. She feels great this morning. She Has no shortness of breath. I will place her on doxycycline 100mg BID x 7 days. Her oxygen saturations have remained >90% on room air. Acute Congestive Heart failure patient was treated with Lasix 20mg IV x 1, then IV BID. ECHO showed some Grade1 diastolic dysfunction with EF of 65%. Cardiology recommended increasing her metoprolol to 50mg BID and stopping the amlodipine. This was a discharge medication change, Also recommended holding further lasix and consider daily. I have given her 20mg of Lasix to take as needed when she gains weight or gets lower ext edema, she can assess the need for this with her PCP as well. Slight increase in BUN/Cr today, hold mobic for 1 week, recheck BMP in 2-3 days, she follows with Dr. Mcrae. Patient recovered quicker than anticipated and is eager to go home today. She did well with PT/OT and will have home health set up for her upon discharge. She may return to the ER with any worsening signs or symptoms. Status at Discharge Functional status at discharge: uses cane/walker Overall status at discharge: patient is back to baseline Time Spent with Patient Time attestation: Total time spent providing and/or coordinating discharge services: Time spent: greater than 30 minutes Exam Narrative Exam Narrative: General: Patient is alert, and oriented to person, place and time with normal affect, proper hygiene Skin: no visible rashes, or ulcers Head: atraumatic, acephalic Eyes: PERRLA, no nystagmus present, conjunctiva clear, no scleral icterus Ears: normal gross auditory acuity Heart: Normal rate and rhythm, no murmurs/rubs/gallops Lungs: no audible wheezes, crackles and normal breath sounds all lung baker Abdomen: Normal audible bowel sounds, no distension, No palpable masses, no organomegaly, no rebound/guarding/ or rigidity Musculoskeletal: no swelling bilateral lower extremities Neuro: CN II-X grossly intact Constitutional Vital Signs, click to edit/add: Last Vital Signs Temp 97.5 F L 05/14/24 08:00 Pulse 98 H 05/14/24 11:52 Resp 18 05/14/24 09:13 BP 119/78 05/14/24 08:00 Pulse Ox 93 L 05/14/24 08:00 O2 Del Method Room Air 05/14/24 08:00 DS: Data Data Completed and Pending Labs on day of discharge: Labs from last 24 hours 05/14/24 06:01 WBC 12.5 H RBC 4.36 Hgb 14.0 Hct 42.2 MCV 96.8 MCH 32.1 MCHC 33.2 RDW 13.2 Plt Count 223 MPV 10.8 Neut % (Auto) 49.4 Lymph % (Auto) 37.3 [place] % (Auto) 10.6 Eos % (Auto) 1.1 Baso % (Auto) 0.5 Neut # (Auto) 6.2 Lymph # (Auto) 4.7 H [place] # (Auto) 1.3 H Eos # (Auto) 0.1 Baso # (Auto) 0.1 Abs Immat Gran (auto) 0.14 H Imm/Tot Granulo (auto) 1.1 H Sodium 138 Potassium 3.6 Chloride 100 Carbon Dioxide 28.6 Anion Gap 13.0 BUN 36.0 H Creatinine 1.93 H Est GFR ( Amer) 31 L Est GFR (Non-Af Amer) 25 L BUN/Creatinine Ratio 18.7 Glucose 141 H Calcium 8.8 Total Bilirubin 0.5 AST 24 ALT 16 Alkaline Phosphatase 101 Total Protein 6.2 L Albumin 2.7 L Globulin 3.5 Albumin/Globulin Ratio 0.8 Discharge Plan Discharge Disposition: Home Health Service Condition: Good Discharge Medications: New doxycycline hyclate 100 mg tablet 100 mg PO BID 7 Days Qty: 14 0RF furosemide [Lasix] 20 mg tablet 20 mg PO DAILY PRN (Reason: edema) Qty: 7 0RF Continued alprazolam 0.25 mg tablet 0.25 mg PO BID PRN (Reason: anxiety) gabapentin 300 mg capsule 300 mg PO BID hydrocodone-acetaminophen 5-325 mg tablet 1 tab PO Q6H PRN (Reason: pain) nortriptyline 10 mg capsule 30 mg PO BEDTIME pantoprazole 40 mg tablet,delayed release (DR/EC) 40 mg PO DAILY simvastatin 10 mg tablet 10 mg PO DAILY zolpidem 10 mg tablet 10 mg PO DAILY tizanidine 4 mg tablet 4 mg PO DAILY Changed metoprolol succinate 50 mg tablet extended release 24 hr 50 mg PO BID Qty: 0 0RF Held meloxicam 15 mg tablet 15 mg PO DAILY Hold Instructions: Resume on 05/21/24. Discontinued amlodipine 5 mg tablet 5 mg PO DAILY Activity: ambulate only with your walker and increase activity as tolerated Diet: low salt diet Print Language: Algerian Rolls Baker/General Expeditor Instructions: Discharge with [facility]. Phone number is [phone]. They should contact within 48 hours of discharge Forms: Portal Instructions Follow Up Appointments: Dr Steele's RACETRACK STEWARD May @ 1:00, please check BMP and discuss daily lasix vs as needed [phone] Discharge location: Home with [facility]
--- NOTE | 2024-05-14 13:25 | SWNOTE1 ---
AMARA faxed CRF, dc med rec, dc summary, and PT note from today to [facility]. Pt is discharging today.
--- NOTE | 2024-05-15 10:03 | W.PM.PHARM ---
Pharmacy Note Narrative: discharged rx left here so called [facility] and called in the rx toprol xl 50 mg po bid #[phone] piper. spoke to jackson cifuentes
--- NOTE | 2024-05-16 15:34 | CM.DCFOLLOWU ---
1st attempt 05/16/24, no answer
--- NOTE | 2024-05-21 15:13 | CM.DCFOLLOWU ---
Returned to hospital on 05/16/24
== END 2024-05-14 15:14 | disposition home health service (06) | DRG 291 ==
LOC: ER 20:03 → MS 21:00
PROVIDERS: Emergency Medicine; Registered Nurse; Admitting Provider Family Medicine; Emergency Provider Emergency Medicine; PCP Internal Medicine; Visit Provider Family Medicine
DX: I11.0 Hypertensive heart disease with heart failure (principal); I50.31 Acute diastolic (congestive) heart failure; J18.9 Pneumonia, unspecified organism; N17.9 Acute kidney failure, unspecified; F41.9 Anxiety disorder, unspecified; M25.511 Pain in right shoulder; G89.29 Other chronic pain; G47.30 Sleep apnea, unspecified; E78.00 Pure hypercholesterolemia, unspecified; G47.00 Insomnia, unspecified; K21.9 Gastro-esophageal reflux disease without esophagitis; Z96.661 Presence of right artificial ankle joint; Z96.653 Presence of artificial knee joint, bilateral; Z96.641 Presence of right artificial hip joint; Z88.1 Allergy status to other antibiotic agents; M79.7 Fibromyalgia
CPT/HCPCS: 36415; 71045; 80048; 80053; 80061; 83036; 83605; 83735; 83880; 84443; 84484; 85007; 85025; 85027; 87040; 87804; 87811; 93005; 93306; 94667; 94668; 96374; 96375; 97161; 97165; 97530; 99285; J0696; J1650; J1940

== ENCOUNTER 2024-05-16 12:45 | Outpatient (OUT) | payer MEDICARE, OTHER, SELFPAY ==
[2024-05-16 14:17] LABS: BUN Creatinine Ratio 25.4; Carbon Dioxide 29.6 mmol/L (21.0-32.0); Chloride 98 mmol/L (98-107); Estimated GFR (African America 43 (>=60 mL/min/1.73m^2); Estimated GFR (Non-African Ame 36 (>=60 mL/min/1.73m^2); Glucose 74 mg/dL (74-106); Potassium 3.6 mmol/L (3.5-5.1); Sodium 136 mmol/L (136-145)
== END 2024-05-16 12:46 | disposition home or self-care (01) ==
LOC: LAB 12:46
PROVIDERS: PCP Internal Medicine; Visit Provider Nurse Practitioner Family
DX: I50.9 Heart failure, unspecified (principal)
CPT/HCPCS: 36415; 80048

== ENCOUNTER 2024-05-16 15:45 | Observation (INO) | payer MEDICARE, OTHER, SELFPAY ==
[2024-05-16 15:47] VITALS: BP 122/91; PULSE 79; TEMP 36.3; O2SAT 98; BMI 45.5
--- OUTSIDE RECORDS SUMMARY | 2024-05-16 16:18 | XMS_ITS | CCD ---
Author Organization [facility] Care Team Providers Care Pipe Connector Name Role Phone Tasia Bird Unavailable Unavailable [...] Primary Care Provider Roc Steele MD Unavailable [phone] Waqas Dugan DO Unavailable [phone] Mala Sapp Attending UnavailMala Kenney Admitting UnavailRoc Grant Primary Care Unavailable ALEX TAM Attending Unavailable ALEX TAM Attending Unavailable ALEX TAM Attending Unavailable KAMILA CASTILLO Attending Unavailable ALEX TAM Attending Unavailable KAMILA CASTILLO Attending Unavailable ALEX TAM Attending Unavailable KAMILA CASTILLO Attending Unavailable ALEX TAM Attending Unavailable KAMILA CASTILLO Attending Unavailable ALEX TAM Attending Unavailable ALEX TAM Attending Unavailable KAMILA CASTILLO Attending Unavailable WAQAS DUGAN Attending Unavailable KAMILA CASTILLO Referring Unavailable KAMILA CASTILLO Attending Unavailable KAMILA CASTILLO Referring Unavailable KAMILA CASTILLO Attending Unavailable Allergies Allergy Classification Reported Allergen(s) Allergy Type Date of Onset Reaction(s) Facility Macrolides (antibiotic) (6 sources) Clarithromycin; Translations: [clarithromycin] Drug Allergy Unknown [facility] Work Phone: Quinolones (antibiotic) (18 sources) moxifloxacin; Translations: [moxifloxacin] Drug Allergy Anaphylaxis, Unknown [facility] Work Phone: (20 sources) Ciprofloxacin; Translations: [ciprofloxacin] Drug Allergy 3 Unknown [facility] (20 sources) Clarithromycin; Translations: [clarithromycin] Drug Allergy 3 Unknown [facility] Repository (4 sources) moxifloxacin; Translations: [Avelox] Drug Allergy 3 Anaphylaxis [facility] Repository (20 sources) moxifloxacin; Translations: [moxifloxacin] Drug Allergy 3 Anaphylaxis [facility] Work Phone: (1 source) Ciprofloxacin Drug Allergy 3 [facility] Repository (1 source) Sulfonamides (Antibiotic) Drug allergy (disorder) 3 [facility] Repository (20 sources) Sulfanilamide Allergy to substance 3 [facility] Medications Current Medications Medication Drug Class(es) Dates Sig (Normalized) Sig (Original) acetaminophen 325 mg / HYDROcodone bitartrate 5 mg oral tablet (12 sources) Opioid Agonist Start: 02-29-2024 End: 05-03-2024 take 1 tablet by mouth every four hours for pain HYDROcodone-acetam inophen ([place]) 5-325 MG tablet Indications: Lumbosacral spondylosis without [...] Active doxycycline hyclate 100 mg oral tablet (5 sources) Tetracycline-cla ss Drug Start: 05-07-19 25 [...] 05/17/2024 Active furosemide 20 mg oral tablet (6 sources) Loop Diuretic Start: 04-04-20 End: 05-15-19 take 1 tablet by mouth once daily furosemide (Lasix) 20 MG tablet Indications: Acute pulmonary edema (CMS/HCC) Take 1 tablet (20 mg) by mouth Daily for 7 days 7 tablet 04/04/2024 05/15/2024 Discontinued (Therapy completed) gabapentin 300 mg oral capsule (20 sources) [...] DAILY 90 tablet 3 11/09/2022 Active methylPREDNISolone (3 sources) Corticosteroid Start: 05-07-2024 End: 05-14-2024 methylPREDNISolone [...] [CALCU GB W/O CHOLECYST W/O OBST] Onset: 3 Episodic Blindness and vision defects (8 sources) Disorder of vision; Translations: [Problems with sight] Chronic Blindness and vision defects (1 source) Disorder of vision; Translations: [History of Vision problems] Episodic Cardiac dysrhythmias (20 sources) Paroxysmal supraventricular tachycardia; Translations: [Paroxysmal supraventricular tachycardia] Onset: 3 09-30-2022 Chronic Chronic obstructive pulmonary disease and bronchiectasis (1 source) Bronchiectasis, uncomplicated; Translations: [BRONCHIECTASIS UNCOMPLICATED] Onset: 3 Chronic Chronic obstructive pulmonary disease and bronchiectasis (2 sources) Bronchitis; Translations: [Bronchitis, not specified as acute or chronic] 05-07-2024 Episodic Congestive heart failure; nonhypertensive (4 sources) Acute congestive heart failure; Translations: [Heart failure, unspecified] 05-15-2024 Chronic Disorders of lipid metabolism (20 sources) Pure [...] Translations: [Generalized enlarged lymph nodes] 03-05-2024 Episodic Malaise and fatigue (4 sources) Asthenia; Translations: [Weakness] 05-15-2024 Episodic Menopausal disorders (20 sources) Decreased estrogen [...] 3 Chronic Other aftercare (1 source) Other jail (current) drug therapy; Translations: [OTH DETENTION CURRENT DRUG THERAPY] Onset: 3 Episodic Other [...] Onset: 3 Episodic Other lower respiratory disease (2 sources) Fibrosis of lung; Translations: [Pulmonary fibrosis, unspecified] 05-15-2024 Chronic Other lower respiratory disease (4 sources) Cough; [...] sinusitis; Translations: [Other acute sinusitis] 04-03-2024 Episodic Pneumonia (except that caused by tuberculosis or sexually transmitted disease) (4 sources) Bilateral pneumonia; Translations: [Pneumonia, unspecified organism] 05-15-2024 Episodic Residual codes; unclassified (20 sources) Obstructive sleep apnea syndrome; Translations: [Obstructive sleep apnea (adult) (pediatric)] Onset: 3 09-30-2022 Chronic Residual codes; unclassified (9 sources) H/O: Disorder; Translations: [Personal history of other specified diseases] Episodic Residual codes; unclassified (20 sources) Edema; Translations: [Edema, unspecified] Onset: 3 09-30-2022 Episodic Retinal detachments; defects; vascular occlusion; and [...] (oral)] Onset: 09-30-2022 09-30-2022 Episodic Mood disorders (19 sources) Mood disorders Onset: 07-06-2023 07-06-2023 Nonmalignant [...] 06-07-2022 Episodic Residual codes; unclassified (20 sources) Insomnia; Translations: [Insomnia, unspecified] Onset: 09-30-2022 09-30-2022 Episodic Spondylosis; intervertebral disc disorders; other back problems (20 sources) Low back pain; Translations: [Low back pain] Onset: 09-30-2022 09-30-2022 Episodic NEGATED: Highlighted row has not occurred!Residual codes; unclassified (2 sources) Disease Episodic Results Test Name Value Interpretation Reference Range Facility XR chest 2V*on 04-29-2024 XR chest 2V* [facility] [address] [address] XRay Report Signed Patient: Luma Ribeiro MR#: [id number] : 1945 Acct:[id number] Age/Sex: 78 / F ADM Date: 04/29/24 Loc: XDUCLY Room: Type: [facility] 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 APRN Copies to: [...] R Christopher M.D.04/29/2024 4:00 PM Dictation Location: [facility]--19 Transcribed By: 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 Distal pulses and sensation are intact. Limited forward flexion to about 25 degrees lateral abduction to about 15 unable to perform any external rotation but internal he can get to the small of her back. Her exam does not allow for much of a true Neer's Shelby or Bulloch's test. Diagnostics: See dictated report from today, previous outside CT scan report of the humerus reviewed, and is available in the [facility] chart. 1 Procedure: None Assessment: [...] the patient's CT scan report reviewed in [facility] chart Other 1 than the [...] grammatical areas may persist related to the [employer] software (more content not included)... Normal [facility] 10-04-2022 XR Shoulder 2 Views [facility]: SHOULDER, CMPLT, MIN 2 VIEWS on 10-04-2022 SHOULDER, CMPLT, MIN 2 VIEWS Patient Name: LUMA RIBEIRO STUDY: SHOULDER, CMPLT, MIN 2 VIEWS; Right; 10/04/2022 1:49 pm INDICATION: pain M25.519: Shoulder pain. ACCESSION NUMBER(S): [id number] ORDERING CLINICIAN: TANIYA CANCHOLA FINDINGS: Multiple views [...] Electronically signed by: TANIYA CANCHOLA MD Normal [facility] CT HUMERUS RIGHT W/O CONTRAS Ton 09-12-2022 [...] by Pernell Wiley on 09/12/2022 1127 Normal [facility] XR Chest 2 Views*on 09-13-19 23 [...] by Pernell Wiley on 09/12/2022 1101 Normal [facility] XR CHEST 2 Von 09-05-2022 XR [...] by: ISAEL HANSEN Date: 2022-09-05 15:11 Normal [facility] XR KUB 1 VIEWon 09-05-2022 XR [...] ISAEL HANSEN Date: 2022-09-05 15:10 Normal [facility] AMYLASEon 09-03-2022 Amylase [Catalytic activity/Vol] 34 U/L Normal 25-115 [facility] Comment on above: Performed By: #### L IPA, CMP, CMADM, BNP, GRACIELA #### [facility] [address] [place] [address] Dr. Yonny Meza BNPon 09-03-2022 Natriuretic peptide B (Bld) [Mass/Vol] 241.0 pg/mL Normal <=1,800.0 [facility] Comment on above: Performed By: #### L IPA, CMP, CMADM, BNP, GRACIELA #### [facility] [address] [place] [address] Dr. Yonny Meza CARDIAC SRINIVASA ADMITon 023 CK [Catalytic activity/Vol] 154 U/L Normal 26-192 [facility] Comment on above: Performed By: #### L IPA, CMP, CMADM, BNP, GRACIELA #### [facility] [address] [place] [address] Dr. Yonny Meza CK.MB [Mass/Vol] 1.42 ng/mL Normal <=3.60 [facility] Comment on above: Performed By: #### L IPA, CMP, CMADM, BNP, GRACIELA #### [facility] [address] [place] [address] Dr. Yonny Meza HSTROP 13.9 pg/mL Normal 4.0-51.3 [facility] Comment on above: Result Comment: CUT- OFF POINTS HAVE BEEN ESTABLISHED BASED ON THE FOURTH UNIVERSAL DEFINITIONS OF MYOCARDIAL INFARCTION. THE UPPER REFERENCE LIMIT (URL) OF TROPONIN, DEFINED THE 99TH PERCENTILE OF cTnI DISTRIBUTION IN A REFERENCE POPULATION, HAS BEEN CONFIRMED THE DECISION THRESHOLD FOR MD DIAGNOSIS. Performed By: #### L IPA, CMP, CMADM, BNP, GRACIELA #### [facility] [address] [place] [address] Dr. Yonny Meza DARION 63 ng/mL Normal 9-82 [facility] Comment on above: Performed By: #### L IPA, CMP, CMADM, BNP, GRACIELA #### [facility] [address] [place] [address] Dr. Yonny Meza CBC AUTO DIFFon 09-03-2022 BASO # 0.0 103/ul Normal 0.0-0.1 [facility] Comment on above: Performed By: #### L IPA, CMP, CMADM, BNP, GRACIELA #### [facility] [address] [place] [address] Dr. Yonny Meza Basophils/100 WBC (Bld) 0.4 % Normal 0.2-2.0 [facility] Comment on above: Performed By: #### L IPA, CMP, CMADM, BNP, GRACIELA #### [facility] [address] [place] [address] Dr. Yonny Meza EO # 0.1 103/ul Normal 0.0-0.7 [facility] Comment on above: Performed By: #### L IPA, CMP, CMADM, BNP, GRACIELA #### [facility] [address] [place] [address] Dr. Yonny Meza Eosinophils/100 WBC (Bld) 1.6 % Normal 0.9-7.0 [facility] Comment on above: Performed By: #### L IPA, CMP, CMADM, BNP, GRACIELA #### [facility] [address] [place] [address] Dr. Yonny Meza Erythrocyte distribution width (RBC) [Ratio] 12.6 % Normal 11.0-15.0 [facility] Comment on above: Performed By: #### L IPA, CMP, CMADM, BNP, GRACIELA #### [facility] [address] [place] [address] Dr. Yonny Meza Hematocrit (Bld) [Volume fraction] 38.9 % Normal 36.0-48.0 [facility] Comment on above: Performed By: #### L IPA, CMP, CMADM, BNP, GRACIELA #### [facility] [address] [place] [address] Dr. Yonny Meza Hemoglobin (Bld) [Mass/Vol] 13.0 g/dL Normal 12.0-16.0 [facility] Comment on above: Performed By: #### L IPA, CMP, CMADM, BNP, GRACIELA #### [facility] [address] [place] [address] Dr. Yonny Meza IG # 0.02 10e3/ul Normal 0.00-0.03 [facility] Comment on above: Performed By: #### L IPA, CMP, CMADM, BNP, GRACIELA #### [facility] [address] [place] [address] Dr. Yonny Meza IG % 0.3 % Normal 0.0-0.5 [facility] Comment on above: Performed By: #### L IPA, CMP, CMADM, BNP, GRACIELA #### [facility] [address] [place] [address] Dr. Yonny Meza LYMPH # 2.0 103/ul Normal 1.2-3.8 [facility] Comment on above: Performed By: #### L IPA, CMP, CMADM, BNP, GRACIELA #### [facility] [address] [place] [address] Dr. Yonny Meza Lymphocytes/100 WBC (Bld) 25.3 % Normal 20.5-60.0 [facility] Comment on above: Performed By: #### L IPA, CMP, CMADM, BNP, GRACIELA #### [facility] [address] [place] [address] Dr. Yonny Meza MANUAL DIFF REQ NO Normal [facility] Comment on above: Performed By: #### L IPA, CMP, CMADM, BNP, GRACIELA #### [facility] [address] [place] [address] Dr. Yonny Meza MCH (RBC) [Entitic mass] 31.8 pg Normal 26.7-34.0 [facility] Comment on above: Performed By: #### L IPA, CMP, CMADM, BNP, GRACIELA #### [facility] [address] [place] [address] Dr. Yonny Meza MCHC (RBC) [Mass/Vol] 33.4 g/dL Normal 29.9-35.2 [facility] Comment on above: Performed By: #### L IPA, CMP, CMADM, BNP, GRACIELA #### [facility] [address] [place] [address] Dr. Yonny Meza MCV (RBC) [Entitic vol] 95.1 fL Normal 81.0-99.0 [facility] Comment on above: Performed By: #### L IPA, CMP, CMADM, BNP, GRACIELA #### [facility] [address] [place] [address] Dr. Yonny Meza MONO # 0.9 103/ul Critically high 0.3-0.8 [facility] Comment on above: Performed By: #### L IPA, CMP, CMADM, BNP, GRACIELA #### [facility] [address] [place] [address] Dr. Yonny Meza Monocytes/100 WBC (Bld) 11.5 % Normal 1.7-12.0 [facility] Comment on above: Performed By: #### L IPA, CMP, CMADM, BNP, GRACIELA #### [facility] [address] [place] [address] Dr. Yonny Meza NEUT # 4.8 103/ul Normal 1.4-6.5 [facility] Comment on above: Performed By: #### L IPA, CMP, CMADM, BNP, GRACIELA #### [facility] [address] [place] [address] Dr. Yonny Meza Neutrophils/100 WBC (Bld) 60.9 % Normal 43.0-75.0 [facility] Comment on above: Performed By: #### L IPA, CMP, CMADM, BNP, GRACIELA #### [facility] [address] [place] [address] Dr. Yonny Meza Platelet mean volume (Bld) [Entitic vol] 10.1 fL Normal 9.5-13.5 [facility] Comment on above: Performed By: #### L IPA, CMP, CMADM, BNP, GRACIELA #### [facility] [address] [place] [address] Dr. Yonny Meza PLT 252 103/ul Normal 150-450 [facility] Comment on above: Performed By: #### L IPA, CMP, CMADM, BNP, GRACIELA #### [facility] [address] [place], [place] [id number] Dr. Yonny Meza RBC 4.09 106/ul Critically low 4.20-5.40 [facility] Comment on above: Performed By: #### L IPA, CMP, CMADM, BNP, GRACIELA #### [facility] [address] [place], [place] [address] Dr. Yonny Meza WBC 7.9 103/ul Normal 4.0-11.0 [facility] Comment on above: Performed By: #### L IPA, CMP, CMADM, BNP, GRACIELA #### [facility] [address] [place], [place] [address] ABD/PELVIS WO CONon [...] [place] Date: 2022-09-03 01:11 Normal [facility] ER URINE PROFILEon 3 Bilirubin Ql (U) Negative Normal NEGATIVE [facility] Comment on above: Performed By: #### L IPA, CMP, CMADM, BNP, GRACIELA #### [facility] [address] [place] [address] Dr. Yonny Meza Clarity (U) CLEAR Normal CLEAR [facility] Comment on above: Performed By: #### L IPA, CMP, CMADM, BNP, GRACIELA #### [facility] [address] [place] [address] [address] Yonny Meza Color (U) LT. YELLOW Normal YELLOW [facility] Comment on above: Performed By: #### L IPA, CMP, CMADM, BNP, GRACIELA #### [facility] [address] [place] [address] [address] Yonny Meza ERUAHD A micrscopic examina tion will be performed if indicated. Normal [facility] Comment on above: Performed By: #### L IPA, CMP, CMADM, BNP, GRACIELA #### [facility] [address] [place] [address] [address] Yonny Meza Glucose Ql (U) Negative Normal NEGATIVE [facility] Comment on above: Performed By: #### L IPA, CMP, CMADM, BNP, GRACIELA #### [facility] [address] [address] [address] Yonny Meza Hemoglobin Ql (U) Negative Normal NEGATIVE [facility] Comment on above: Performed By: #### L IPA, CMP, CMADM, BNP, GRACIELA #### [facility] [address] [address] [address] Yonny Meza Ketones Ql (U) Negative Normal NEGATIVE [facility] Comment on above: Performed By: #### L IPA, CMP, CMADM, BNP, GRACIELA #### [facility] [address] [place] [address] [address] Yonny Meza LEUKOCYTES Negative Normal NEGATIVE [facility] Comment on above: Performed By: #### L IPA, CMP, CMADM, BNP, GRACIELA #### [facility] [address] [place] [address] [address] Yonny Meza Nitrite Ql (U) Negative Normal NEGATIVE [facility] Comment on above: Performed By: #### L IPA, CMP, CMADM, BNP, GRACIELA #### [facility] [address] [place] [address] [address] Yonny Meza pH (U) 7.0 [pH] Normal 5-9 [facility] Comment on above: Performed By: #### L IPA, CMP, CMADM, BNP, GRACIELA #### [facility] [address] [place] [address] [address] Yonny Meza SPEC GRAVITY 1.015 Normal 1.005-<=1.0 25 [facility] Comment on above: Performed By: #### L IPA, CMP, CMADM, BNP, GRACIELA #### [facility] [address] [place] [address] [address] Yonny Meza UA PROTEIN Negative Normal NEGATIVE/ TRACE [facility] Comment on above: Performed By: #### L IPA, CMP, CMADM, BNP, GRACIELA #### [facility] [address] [place] [address] [address] Yonny Meza UR MICRO IND NOT INDICATED Normal [facility] Comment on above: Performed By: #### L IPA, CMP, CMADM, BNP, GRACIELA #### [facility] [address] [place] [address] Dr. Yonny Meza Urobilinogen Qn (U) 0.2 {Arnaud'U}/dL Normal 0.2 - 1.0 [facility] Comment on above: Performed By: #### L IPA, CMP, CMADM, BNP, GRACIELA #### [facility] [address] [place] [address] Dr. Yonny Meza LACTATE/LACTIC ACIDon 2022 Lactate [Moles/Vol] 2.3 mmol/L Critically high 0.4-2.0 [facility] Comment on above: Performed By: #### L ACT #### [facility] [address] [place] [address] Dr. Yonny Meza Lactate [Moles/Vol] 2.2 mmol/L Critically high 0.4-2.0 [facility] Comment on above: Performed By: #### L IPA, CMP, CMADM, BNP, GRACIELA #### [facility] [address] [place] [address] Dr. Yonny Meza LIPASEon 09-03-2022 Lipase [Catalytic activity/Vol] 88.0 U/L Normal 73.0-393.0 [facility] Comment on above: Performed By: #### L IPA, CMP, CMADM, BNP, GRACIELA #### [facility] [address] [place] [address] Dr. Yonny Meza PROF 14(COMP METB)on 023 Albumin [Mass/Vol] 3.3 g/dL Critically low 3.4-5.0 [facility] Comment on above: Performed By: #### L IPA, CMP, CMADM, BNP, GRACIELA #### [facility] [address] [place] [address] Dr. Yonny Meza Albumin/Globulin [Mass ratio] 0.9 {ratio} Normal [facility] Comment on above: Performed By: #### L IPA, CMP, CMADM, BNP, GRACIELA #### [facility] [address] [place] [address] Dr. Yonny Meza ALP [Catalytic activity/Vol] 122 U/L Critically high 46-116 [facility] Comment on above: Performed By: #### L IPA, CMP, CMADM, BNP, GRACIELA #### [facility] [address] [place] [address] [address] Yonny Meza ALT [Catalytic activity/Vol] 21 U/L Normal 14-59 [facility] Comment on above: Performed By: #### L IPA, CMP, CMADM, BNP, GRACIELA #### [facility] [address] [place] [address] Dr. Yonny Meza Anion gap [Moles/Vol] 12.4 mmol/L Normal [facility] Comment on above: Performed By: #### L IPA, CMP, CMADM, BNP, GRACIELA #### [facility] [address] [place] [address] Dr. Yonny Meza AST [Catalytic activity/Vol] 24 U/L Normal 15-37 [facility] Comment on above: Performed By: #### L IPA, CMP, CMADM, BNP, GRACIELA #### [facility] [address] [place] [address] Dr. Yonny Meza Bilirubin [Mass/Vol] 0.4 mg/dL Normal 0.2-1.0 [facility] Comment on above: Performed By: #### L IPA, CMP, CMADM, BNP, GRACIELA #### [facility] [address] [place] [address] Dr. Yonny Meza Calcium [Mass/Vol] 8.7 mg/dL Normal 8.5-10.1 [facility] Comment on above: Performed By: #### L IPA, CMP, CMADM, BNP, GRACIELA #### [facility] [address] [place] [address] Dr. Yonny Meza Chloride [Moles/Vol] 105 mmol/L Normal 98-107 [facility] Comment on above: Performed By: #### L IPA, CMP, CMADM, BNP, GRACIELA #### [facility] [address] [place] [address] Dr. Yonny Meza CO2 [Moles/Vol] 28.0 mmol/L Normal 21.0-32.0 [facility] Comment on above: Performed By: #### L IPA, CMP, CMADM, BNP, GRACIELA #### [facility] [address] [place] [address] Dr. Yonny Meza Creatinine [Mass/Vol] 1.11 mg/dL Critically high 0.55-1.02 [facility] Comment on above: Performed By: #### L IPA, CMP, CMADM, BNP, GRACIELA #### [facility] [address] [place] [address] Dr. Yonny Meza EGFR-AF CYMRAES 58 mL/min/1.73m2 Critically low >=60 [facility] Comment on above: Performed By: #### L IPA, CMP, CMADM, BNP, GRACIELA #### [facility] [address] [place] [address] Dr. Yonny Meza EGFR-NON AF CYMRAES 48 mL/min/1.73m2 Critically low >=60 [facility] Comment on above: Performed By: #### L IPA, CMP, CMADM, BNP, GRACIELA #### [facility] [address] [place] [address] Dr. Yonny Meza Globulin (S) [Mass/Vol] 3.7 g/dL Normal [facility] Comment on above: Performed By: #### L IPA, CMP, CMADM, BNP, GRACIELA #### [facility] [address] [place] [address] Dr. Yonny Meza Glucose [Mass/Vol] 152 mg/dL Critically high 74-106 [facility] Comment on above: Performed By: #### L IPA, CMP, CMADM, BNP, GRACIELA #### [facility] [address] [place] [address] Dr. Yonny Meza Potassium [Moles/Vol] 3.4 mmol/L Critically low 3.5-5.1 [facility] Comment on above: Performed By: #### L IPA, CMP, CMADM, BNP, GRACIELA #### [facility] [address] [place] [address] Dr. Yonny Meza Protein [Mass/Vol] 7.0 g/dL Normal 6.4-8.2 [facility] Comment on above: Performed By: #### L IPA, CMP, CMADM, BNP, GRACIELA #### [facility] [address] [place] [address] Dr. Yonny Meza Sodium [Moles/Vol] 142 mmol/L Normal 136-145 [facility] Comment on above: Performed By: #### L IPA, CMP, CMADM, BNP, GRACIELA #### [facility] [address] [place] [address] Dr. Yonny Meza Urea nitrogen [Mass/Vol] 14.0 mg/dL Normal 7.0-18.0 [facility] Comment on above: Performed By: #### L IPA, CMP, CMADM, BNP, GRACIELA #### [facility] [address] [place] [address] Dr. Yonny Meza Urea nitrogen/Creatini ne [Mass ratio] 12.6 mg/mg Normal [facility] Comment on above: Performed By: #### L IPA, CMP, CMADM, BNP, GRACIELA #### [facility] [address] [place] [address] Dr. Yonny Meza PROTIMEon 09-03-2022 INR Coag (PPP) [Relative time] 1.05 {INR} Normal [facility] Comment on above: Performed By: #### L IPA, CMP, CMADM, BNP, GRACIELA #### [facility] [address] [place] [address] Dr. Yonny Meza INR GUIDELINES SEE BELOW Normal [facility] Comment on above: Result Comment: ASCENCION RED INR: 2.0 - 3.0 CONDITIONS NOT LISTED BELOW 2.5 - 3.5 FOR PROSTHETIC HEART VALVE REPLACEMENT 2.5 - 3.5 RECURRENT THROMBOSIS Performed By: #### L IPA, CMP, CMADM, BNP, GRACIELA #### [facility] [address] [place] [address] Dr. Yonny Meza PT Coag (PPP) [Time] 11.1 s Normal 9.0-11.6 [facility] Comment on above: Performed By: #### L IPA, CMP, CMADM, BNP, GRACIELA #### [facility] [address] [place] [address] Dr. Yonny Meza PTTon 09-03-2022 aPTT Coag (Bld) [Time] 26.7 s Normal 22.3-36.2 [facility] Comment on above: Performed By: #### L IPA, CMP, CMADM, BNP, GRACIELA #### [facility] [address] [address] [address] Yonny Meza XR CHEST 1 Von [...] by: HATTIE [place] Date: 2022-09-03 00:08 Normal [facility] MAMM SCREEN 3D RON CADon 06-06-2022 MG MAMM SCREEN 3D RON CAD Patient: LUMA RIBEIRO Exam Date: 06/06/2022 : 1945 Gender:F Ordering : DR ROC STEELE M.D. Admission #: [id number] Family : Order #: [id number] CLICK HERE TO VIEW EXAM RADIOLOGY REPORT PROCEDURE: MAMMOGRAM SCREENING 3D BILATERAL CAD COMPARISON: MG MAMM DX 3D RT CAD, 05/03/2021. MG MAMM SCREEN 3D RON CAD, 01/12/2021. INDICATIONS: Screening mammography Calculator Name NCI Breast Cancer Risk Assessment Tool 5 Year Breast Cancer Risk 1.20% Lifetime Breast Cancer Risk 2.50% Personal Breast Cancer No Personal Ovarian Cancer No Treatments None Family Cancers Aunt-paternal with breast cancer at age 60. LOCATION: [facility] BREAST COMPOSITION: Scattered areas fibroglandular density. [...] on 06/07/2022 at 08:09 Normal [facility] No Panel Informationon 12-16 Please click on the link to view the study images Normal -[facility] Work Phone: Radiologyon 12-03-2020 XR Pelvis and Hip - left 2 Views Normal [facility] Work Phone: MRI Humerus w/wo Contraston 11-20-2020 MRI Humerus w/wo Contrast Normal [facility] Work Phone: Otheron 02-13-2020 Interpreted by: BONIFACIO ALARCON 15:34MRN: [id number] Name: GEMALUMA STUDY:HIP, UNILATERAL W/PELVIS WHEN PERFORMED 2-3 VIEWS; Right;02/13/2020 1:58 pm INDICATION:pain. 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 No acute bony abnormality orperiprosthetic fracture appreciated. Electronically signed by: TASIA BIRD 02/13/20 15:34 Normal [facility] Work Phone: Complete Blood Count + Diffe rentialon 01-30-2020 Basophils (Bld) [#/Vol] 0.04 {x10E9/L} See Below [facility] Work Phone: Comment on above: Reference Range: 0.0 0 - 0.10 Basophils/100 WBC (Bld) 0.2 % 0.0 - 2.0 [facility] Work Phone: Eosinophils (Bld) [#/Vol] 0.01 {x10E9/L} See Below [facility] [place] Work Phone: Comment on above: Reference Range: 0.0 0 - 0.40 Eosinophils/100 WBC (Bld) 0.1 % 0.0 - 6.0 [facility] Work Phone: Erythrocyte distribution width (RBC) [Ratio] 13.1 % See Below [facility] Work Phone: Comment on above: Reference Range: 11. 5 - 14.5 Hematocrit (Bld) [Volume fraction] 34.8 % below low threshold See Below [facility] Work Phone: Comment on above: Reference Range: 36. 0 - 46.0 Hemoglobin (Bld) [Mass/Vol] 11.3 g/dL below low threshold See Below [facility] Work Phone: Comment on above: Reference Range: 12. 0 - 16.0 Lymphocytes (Bld) [#/Vol] 2.21 {x10E9/L} See Below [facility] Work Phone: Comment on above: Reference Range: 0.8 0 - 3.00 Lymphocytes/100 WBC (Bld) 12.5 % See Below [facility] Work Phone: Comment on above: Reference Range: 13. 0 - 44.0 MCHC (RBC) [Mass/Vol] 32.5 g/dL See Below [facility] Work Phone: [phone] Comment on above: Reference Range: 32. 0 - 36.0 MCV (RBC) [Entitic vol] 99 fL 80 - 100 [facility] Work Phone: Monocytes (Bld) [#/Vol] 1.82 {x10E9/L} above high threshold See Below [facility] Work Phone: [phone] Comment on above: Reference Range: 0.0 5 - 0.80 Monocytes/100 WBC (Bld) 10.3 % 2.0 - 10.0 [facility] Work Phone: Neutrophils/100 WBC (Bld) 76.3 % See Below [facility] Work Phone: Comment on above: Reference Range: 40. 0 - 80.0 Platelets (Bld) [#/Vol] 234 {x10E9/L} 150 - 450 [facility] Work Phone: [phone] RBC (Bld) [#/Vol] 3.52 {x10E12/L} below low threshold See Below [facility] Work Phone: Comment on above: Reference Range: 4.0 0 - 5.20 WBC (Bld) [#/Vol] 17.7 {x10E9/L} above high threshold 4.4 - 11.3 [facility] Work Phone: [phone] Complete Blood Count + Differential 0.6 % 0.0 - 0.9 [facility] Work Phone: [phone] Comment on above: Immature Granulocyte Count (IG) includes promyelocytes, myelocytes and metamyelocytes but does not include bands. Percent differential counts (%) should be interpreted in the context of the absolute cell counts (cells/L). Complete Blood Count + Differential 13.52 {x10E9/L} above high threshold See Below [facility] Work Phone: [phone] Comment on above: Reference Range: 1.6 0 - 5.50 Metabolic Panelon 01-30-2020 Anion gap [Moles/Vol] 8 mmol/L below low threshold 10 - 20 [facility] Work Phone: [phone] Calcium [Mass/Vol] 8.8 mg/dL 8.6 - 10.3 [facility] Work Phone: [phone] Chloride [Moles/Vol] 101 mmol/L 98 - 107 [facility] [employer] Work Phone: CO2 [Moles/Vol] 32 mmol/L 21 - 32 -[facility] [employer] Work Phone: Creatinine [Mass/Vol] 1.00 mg/dL See Below -[facility] [employer] Work Phone: Comment on above: Reference Range: 0.5 0 - 1.05 Glucose [Mass/Vol] 128 mg/dL above high threshold 74 - 99 [facility] [employer] Work Phone: Potassium [Moles/Vol] 4.2 mmol/L 3.5 - 5.3 -[facility] [employer] Work Phone: Sodium [Moles/Vol] 137 mmol/L 136 - 145 [facility] [employer] Work Phone: Urea nitrogen [Mass/Vol] 14 mg/dL 6 - 23 -[facility] [employer] Work Phone: Otheron 01-30-2020 65 {mL/min/1.73m2} >[address] [facility] [employer] Phone: Comment on above: CALCULATIONS OF TONE MATED GFR ARE PERFORMED USING THE MDRD STUDY EQUATION FOR THE IDMS-TRACEABLE CREATININE METHODS. CLIN CHEM 2007;53:766-72 54 {mL/min/1.73m2} Abnormal >[address] [facility] [employer] Work Phone: Otheron 01-29-2020 Interpreted by: BWJFOU08/01/20 15:21MRN: [id number] Name: GEMALUMA STUDY:HIP, UNILATERAL W/PELVIS WHEN PERFORMED 2-3 VIEWS; 01/29/2020 12:25 pm INDICATION:s/p right ROSSANA. COMPARISON:01/16/2020 ORDERING CLINICIAN:TASIA BIRD FINDINGS:Pelvis and right hip, three views Interval right total hip arthroplasty noted without periprostheticfracture or lucency. There is no dislocation. IMPRESSION:Right total hip arthroplasty without immediate complicationsElectronically signed by: RAJIV 01/30/20 15:21 [facility] Work Phone: XR Pelvis 1 or 2 views Please click on the link to view the study images Normal [facility] Work Phone: Coronavirus 2019 RNA by PCR, Screening Asymptomticon 01-27-2020 Coronavirus 2019 RNA by PCR, Screening Asymptomtic NOT DETECTED See Below [facility] Work Phone: Comment on above: SOURCE: Nasal, [...] make patient management decisions.Fact sheet for providers: https://www.fda.gov/media/301451/downloadFact sheet for patients: https://www.fda.gov/media/804464/downloadThis test has received FDA Emergency Use Authorization (EUA) and has been verified by [facility] ([facility]). This test is only authorized for the duration of time that circumstances exist to justify the authorization of the emergency use of in vitro diagnostic tests for the detection of SARS-CoV-2 virus and/or diagnosis of COVID-19 infection under section 564(b)(1) of the Act, 21 U.S.C. 360bbb-3(b)(1), unless the authorization is terminated or revoked sooner. [facility] is certified under CLIA-88 as qualified to perform high complexity testing. Testing is performed in the [facility] laboratories located at [address] [place] [address]. Activated Partial Thrombopla stin Timeon 01-20-2020 aPTT Coag (PPP) [Time] 29 {sec} 25 - 35 [facility] Work Phone: Comment on above: THE APTT IS NO LONGE R USED FOR MONITORING UNFRACTIONATED HEPARIN THERAPY. FOR MONITORING HEPARIN THERAPY, USE THE HEPARIN ASSAY. Complete Blood Count + Diffe rentialon 01-20-2020 Basophils (Bld) [#/Vol] 0.04 {x10E9/L} See Below [facility] Work Phone: Comment on above: Reference Range: 0.0 0 - 0.10 Basophils/100 WBC (Bld) 0.5 % 0.0 - 2.0 [facility] Work Phone: Eosinophils (Bld) [#/Vol] 0.09 {x10E9/L} See Below [facility] Work Phone: Comment on above: Reference Range: 0.0 0 - 0.40 Eosinophils/100 WBC (Bld) 1.0 % 0.0 - 6.0 [facility] Work Phone: Erythrocyte distribution width (RBC) [Ratio] 12.9 % See Below [facility] Work Phone: Comment on above: Reference Range: 11. 5 - 14.5 Hematocrit (Bld) [Volume fraction] 44.6 % See Below [facility] Work Phone: [phone] Comment on above: Reference Range: 36. 0 - 46.0 Hemoglobin (Bld) [Mass/Vol] 14.5 g/dL See Below [facility] Work Phone: Comment on above: Reference Range: 12. 0 - 16.0 Lymphocytes (Bld) [#/Vol] 3.41 {x10E9/L} above high threshold See Below [facility] Work Phone: [phone] Comment on above: Reference Range: 0.8 0 - 3.00 Lymphocytes/100 WBC (Bld) 38.4 % See Below [facility] [place] Work Phone: Comment on above: Reference Range: 13. 0 - 44.0 MCHC (RBC) [Mass/Vol] 32.5 g/dL See Below [facility] [place] Work Phone: [phone] Comment on above: Reference Range: 32. 0 - 36.0 MCV (RBC) [Entitic vol] 100 fL 80 - 100 [facility] Work Phone: [phone] Monocytes (Bld) [#/Vol] 0.81 {x10E9/L} above high threshold See Below [facility] [place] Work Phone: [phone] Comment on above: Reference Range: 0.0 5 - 0.80 Monocytes/100 WBC (Bld) 9.1 % 2.0 - 10.0 [facility] [place] Work Phone: [phone] Neutrophils (Bld) [#/Vol] 4.49 {x10E9/L} See Below [facility] [place] Work Phone: [phone] Comment on above: Reference Range: 1.6 0 - 5.50 Neutrophils/100 WBC (Bld) 50.7 % See Below [facility] [place] Work Phone: [phone] Comment on above: Reference Range: 40. 0 - 80.0 Platelets (Bld) [#/Vol] 261 {x10E9/L} 150 - 450 [facility] [place] Work Phone: [phone] RBC (Bld) [#/Vol] 4.48 {x10E12/L} See Below [facility] [place] Work Phone: [phone] Comment on above: Reference Range: 4.0 0 - 5.20 WBC (Bld) [#/Vol] 8.9 {x10E9/L} 4.4 - 11.3 [facility] [employer] Work Phone: Complete Blood Count + Differential 0.3 % 0.0 - 0.9 [facility] Work Phone: Comment on above: Immature Granulocyte Count (IG) includes promyelocytes, myelocytes and metamyelocytes but does not include bands. Percent differential counts (%) should be interpreted in the context of the absolute cell counts (cells/L). Fructosamine, Serumon 2019 Fructosamine [Moles/Vol] 265 umol/L 0-285 [facility] Work Phone: Comment on above: Published reference interval for apparently healthy subjectsbetween age 20 and 60 is 205 - 285 umol/L and in a poorlycontrolled diabetic population is 228 - 563 umol/L with amean of 396 umol/L. Hematologyon 01-20-2020 INR Coag (PPP) [Relative time] 1.1 {INR} 0.9 - 1.1 [facility] Work Phone: PT Coag (PPP) [Time] 13.0 {sec} See Below [facility] Work Phone: Comment on above: Reference Range: 10. 1 - 13.3 Metabolic Panelon 01-20-2020 ALP [Catalytic activity/Vol] 100 U/L 33 - 136 [facility] Work Phone: Anion gap [Moles/Vol] 13 mmol/L 10 - 20 [facility] Work Phone: Bilirubin [Mass/Vol] 0.6 mg/dL 0.0 - 1.2 [facility] Work Phone: [phone] Calcium [Mass/Vol] 9.7 mg/dL 8.6 - 10.3 [facility] Work Phone: Chloride [Moles/Vol] 101 mmol/L 98 - 107 [facility] [place] Work Phone: CO2 [Moles/Vol] 32 mmol/L 21 - 32 -[facility] [place] Work Phone: Creatinine [Mass/Vol] 1.01 mg/dL See Below [facility] [place] Work Phone: Comment on above: Reference Range: 0.5 0 - 1.05 Glucose [Mass/Vol] 88 mg/dL 74 - 99 -[facility] [place] Work Phone: Potassium [Moles/Vol] 3.9 mmol/L 3.5 - 5.3 -[facility] [place] Work Phone: Protein [Mass/Vol] 7.6 g/dL 6.4 - 8.2 [facility] [place] Work Phone: Sodium [Moles/Vol] 142 mmol/L 136 - 145 -[facility] [place] Work Phone: Urea nitrogen [Mass/Vol] 15 mg/dL 6 - 23 [facility] [place] Work Phone: Otheron 01-20-2020 100 1 [facility] [place] Work Phone: [phone] [facility] [place] Work Phone: [phone] -[facility] [place] Work Phone: [phone] -[facility] [place] Work Phone: -[phone] [facility] [place] Work Phone: [phone] -[facility] [place] Work Phone: [phone] Sinus rhythm with oc casional premature ventricular complexes [facility] [place] Work Phone: [phone] -[facility] [place] Work Phone: [phone] http://[facility] [email or web address] 1:8080/mu sescripts/museweb.dll?Retriev eTestByDateTime?JmhhrkyLG=[email or web address] [id number]&Date=20-01-2020&Time=1 4%3a54%3a12%3a00&TestType=ECG &Site=11&OutputType=PDF&Ext=P DF [facility] Work Phone: [phone] [facility] Work Phone: [phone] [facility] Work Phone: [phone] [facility] Work Phone: [phone] [facility] [employer] Work Phone: [facility] Work Phone: [phone] [facility] Work Phone: [phone] Albumin BCP dye [Mass/Vol] 4.4 g/dL 3.4 - 5.0 [facility] Work Phone: [phone] With P-5'-P [Catalytic activity/Vol] 16 U/L 7 - 45 [facility] Work Phone: [phone] Comment on above: Patients treated wit h Sulfasalazine may generate falsely decreased results for ALT. AST With P-5'-P [Catalytic activity/Vol] 23 U/L 9 - 39 [facility] Work Phone: [phone] 65 {mL/min/1.73m2} >[address] [facility] Work Phone: [phone] Comment on above: CALCULATIONS OF TONE MATED GFR ARE PERFORMED USING THE MDRD STUDY EQUATION FOR THE IDMS-TRACEABLE CREATININE METHODS. CLIN CHEM 2007;53:766-72 54 {mL/min/1.73m2} Abnormal >[address] [facility]- [facility] Work Phone: Urinalysison 01-20-2020 Appearance (U) HAZY CLEAR -[facility] [employer] Work Phone: [phone] Color (U) YELLOW See Below [facility] [employer] Work Phone: [phone] Comment on above: Reference Range: STR AW,YELLOW Glucose Ql (U) Negative NEGATIVE -[facility] [employer] Work Phone: [phone] [phone] Ql (U) Negative NEGATIVE -[facility] [employer] Work Phone: [phone] Leukocyte esterase Test strip Ql (U) Negative NEGATIVE -[facility] [employer] Phone: [phone] pH (U) 7.0 [pH] 5.0 - 8.0 -[facility] [employer] Work Phone: Protein (U) [Mass/Vol] Negative NEGATIVE -[facility] [employer] Work Phone: [phone] RBC (U) [#/Vol] Negative NEGATIVE -[facility] [employer] Work Phone: [phone] Specific gravity (U) [Rel density] 1.019 See Below [facility] [employer] Work Phone: [phone] Comment on above: Reference Range: 1.0 05 - 1.035 Urinalysis Negative NEGATIVE -[facility] Work Phone: [phone] Urinalysis 2.0 mg/dL above high threshold 0.0 - 1.9 -[facility] [employer] Work Phone: [phone] Comment on above: Due to a manufacturi [...] Otheron 01-16-2020 Interpreted by: AGNES ALVARADO01/16/20 13:42MRN: [id number] Name: LUMA RIBEIRO STUDY:HIP, UNILATERAL W/PELVIS WHEN PERFORMED 2-3 VIEWS; Right; 01/16/20201:39 pm INDICATION:pain. ORDERING CLINICIAN:HARSHAL ALVARADO FINDINGS:AP lateral right hip x-ray shows end-stage keoekbqewsodbytlae-ou-mwla arthrosis noted. 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 Electronically signed by: HARSHAL ALVARADO 01/16/20 13:42 Normal [facility] Work Phone: Vital Signs Date Time Vital Sign Value Performing Clinician Facility 05-15-2024 11:32-0500 Body height 157.5 cm Kamila Castillo [employer] Work Phone: [facility] 05-15-2024 11:32-0500 Body mass index (BMI) [Ratio] 48.54 kg/m2 Kamila Castillo [employer] Work Phone: [facility] 05-15-2024 11:32-0500 Body weight 120.39 kg Kamila Castillo [employer] Work Phone: [facility] 05-15-2024 11:32-0500 Diastolic blood pressure 76 mm[Hg] Kamila Castillo [employer] Work Phone: [facility] 05-15-2024 11:32-0500 Heart rate 97 /min Kamila Castillo [employer] Work Phone: [facility] 05-15-2024 11:32-0500 Respiratory rate 18 /min Kamila Castillo [employer] Work Phone: [facility] 05-15-2024 11:32-0500 SaO2% (BldA) [Mass fraction] 98 % Kamila Castillo [employer] Work Phone: [facility] 05-15-2024 11:32-0500 Systolic blood pressure 126 mm[Hg] Kamila Castillo [employer] Work Phone: [facility] 01-07-2025 10:53-0500 Body height 157.5 cm Kamila [place] [employer] Work Phone: [facility] 05-07-2024 10:53-0500 Body mass index (BMI) [Ratio] 48.87 kg/m2 Kamila Bigg [employer] Work Phone: [facility] 05-07-2024 10:53-0500 Body weight 121.2 kg Kamila [place] [employer] Work Phone: [facility] 05-07-2024 10:53-0500 Diastolic blood pressure 82 mm[Hg] Kamila Bigg [employer] Work Phone: [facility] 05-07-2024 10:53-0500 Heart rate 88 /min Kamila Bigg [employer] Work Phone: [facility] 05-07-2024 10:53-0500 Respiratory rate 18 /min Kamila [place] [employer] Work Phone: [facility] 05-07-2024 10:53-0500 SaO2% (BldA) [Mass fraction] 95 % Kamila Bigg [employer] Work Phone: [facility] 05-07-2024 10:53-0500 Systolic blood pressure 130 mm[Hg] Kamila Bigg [employer] Work Phone: [facility] 04-03-2024 08:32-0500 Body height 157.5 cm Kamila [place] [employer] Work Phone: [facility] 04-03-2024 08:32-0500 Body mass index (BMI) [Ratio] 49.6 kg/m2 Kamila Bigg [employer] Work Phone: [facility] 04-03-2024 08:32-0500 Body weight 123.02 kg Kamila Bigg [employer] Work Phone: [facility] 04-03-2024 08:32-0500 Diastolic blood pressure 80 mm[Hg] Kamila Bigg [employer] Work Phone: [facility] 04-03-2024 08:32-0500 Heart rate 74 /min Kamila [place] [employer] Work Phone: [facility] 04-03-2024 08:32-0500 Respiratory rate 17 /min Kamila Castillo [employer] Work Phone: [facility] 04-03-2024 08:32-0500 SaO2% (BldA) [Mass fraction] 98 % Kamilaolivia Castillo [employer] Work Phone: [facility] 04-03-2024 08:32-0500 Systolic blood pressure 126 mm[Hg] Kamila Bigg [employer] Work Phone: [facility] 03-05-2024 11:19-0500 Body height 157.5 cm Kamila Castillo [employer] Work Phone: [facility] 03-05-2024 11:19-0500 Body mass index (BMI) [Ratio] 50.85 kg/m2 Kamila Bigg [employer] Work Phone: [facility] 03-05-2024 11:19-0500 Body weight 126.1 kg Kamila Castillo [employer] Work Phone: [facility] 03-05-2024 11:19-0500 Diastolic blood pressure 76 mm[Hg] Kamila Bigg [employer] Work Phone: [facility] 03-05-2024 11:19-0500 Heart rate 102 /min Kamila Bigg [employer] Work Phone: [facility] 03-05-2024 11:19-0500 SaO2% (BldA) [Mass fraction] 98 % Kamila Castillo [employer] Work Phone: [facility] 03-05-2024 11:19-0500 Systolic blood pressure 134 mm[Hg] Kamila Bigg [employer] Work Phone: [facility] 02-22-2024 14:09-0400 Body height 157.5 cm Alex Tam DPM Work Phone: [facility] 02-22-2024 14:09-0400 Body mass index (BMI) [Ratio] 50.85 kg/m2 Alex Tam DPM Work Phone: [facility] 02-22-2024 14:09-0400 Body weight 126.1 kg Alex Brown DPM Work Phone: [facility] 02-22-2024 14:09-0400 Diastolic blood pressure 80 mm[Hg] Alex Brown DPM Work Phone: [facility] 02-22-2024 14:09-0400 Heart rate 82 /min Alex Brown DPM Work Phone: [facility] 02-22-2024 14:09-0400 Systolic blood pressure 126 mm[Hg] Alex Brown DPM Work Phone: [facility] 06-15-2023 14:42-0500 Body height 157.5 cm Alex Brown DPM Work Phone: [facility] 06-15-2023 14:42-0500 Body mass index (BMI) [Ratio] 50.48 kg/m2 Alex Brown DPM Work Phone: [facility] 06-15-2023 14:42-0500 Body weight 125.19 kg Alex Brown DPM Work Phone: [facility] 06-15-2023 14:42-0500 Diastolic blood pressure 82 mm[Hg] Alex Brown DPM Work Phone: [facility] 06-15-2023 14:42-0500 Heart rate 84 /min Alex Brown DPM Work Phone: [facility] 06-15-2023 14:42-0500 Systolic blood pressure 133 mm[Hg] Alex Brown DPM Work Phone: [facility] 06-01-2023 15:33-0500 Body height 157.5 cm Alex Brown DPM Work Phone: [facility] 06-01-2023 15:33-0500 Body mass index (BMI) [Ratio] 50.48 kg/m2 Alex Brown DPM Work Phone: [facility] 06-01-2023 15:33-0500 Body weight 125.19 kg Alex Brown DPM Work Phone: [facility] 06-01-2023 15:33-0500 Diastolic blood pressure 80 mm[Hg] Alex Tam DPM Work Phone: [facility] 06-01-2023 15:33-0500 Heart rate 79 /min Alex Tam DPM Work Phone: [facility] 06-01-2023 15:33-0500 Systolic blood pressure 130 mm[Hg] Alex Tam DPM Work Phone: [facility] 01-16-2020 15:36-0400 BMI (Body Mass Index) 46.35 kg/m2 [facility] [place] Work Phone: 01-16-2020 15:36-0400 Body weight 122.47 kg [facility] [place] Work Phone: 01-16-2020 15:36-0400 BSA (Body Surface Area) 2.22 m2 [facility] [place] Work Phone: 01-16-2020 15:36-0400 Height 162.56 cm [facility] [place] Work Phone: Encounters Encounter Date Encounter Type Care Provider Facility Start: 05-15-2024 End: 05-15-2024 Office outpatient visit 25 minutes Kamila Castillo NP Work Phone: [facility] Comment on above: Edema, unspecified t ype (Primary Dx); Pulmonary fibrosis, unspecified (CMS/HCC); Acute congestive heart failure, unspecified heart failure type (CMS/HCC); Generalized weakness; Pneumonia of both lungs due to infectious organism, unspecified part of lung Start: 05-12-2024 End: 05-14-2024 Clinisync Result Encounter Generic External Data Provider [facility] External Department Unsolicited Start: 05-12-2024 End: 05-14-2024 Clinisync Result Encounter Generic External Data Provider [facility] External Department Unsolicited Start: 05-07-2024 End: 05-07-2024 Office outpatient visit 25 minutes Kamila Castillo [employer] Work Phone: [facility] Comment on above: Bronchitis (Primary Dx); Acute cough; Exudative age-related macular degeneration, left eye, with active choroidal neovascularization (CMS/HCC); Ankylosing spondylitis of thoracic region (CMS/HCC); Exudative age-related macular degeneration, right eye, with active choroidal neovascularization (CMS/HCC); Exudative age-related macular degeneration, bilateral, with active choroidal neovascularization (CMS/HCC); Morbid (severe) obesity due to excess calories (CMS/HCC); Body mass index (BMI) 45.0-49.9, adult (CMS/HCC) Start: 05-07-2024 End: 05-07-2024 ambulatory KAMILA CASTILLO Not Available Start: 04-29-2024 End: 04-29-2024 ambulatory Mala Sapp Facility:[facility] Start: 04-15-2024 End: 04-16-2024 Refill Kamila Castillo [employer] Work Phone: [facility] Comment on above: Primary insomnia Start: 04-04-2024 End: 04-04-2024 Orders Only Kamila Castillo [employer] Work Phone: [facility] Comment on above: Acute pulmonary omid a (CMS/HCC) (Primary Dx); Hypokalemia Start: 04-03-2024 End: 04-03-2024 Bamboo flowsheet Kamila Castillo [employer] Work Phone: [facility] Start: 04-03-2024 End: 04-03-2024 Bamboo flowsheet Kamila Castillo [employer] Work Phone: [facility] Start: 04-03-2024 End: 04-03-2024 ambulatory KAMILA CASTILLO Not Available Start: 04-03-2024 End: 04-03-2024 Office outpatient visit 25 minutes Kamila Castillo [employer] Work Phone: [facility] Comment on above: Acute cough (Primary Dx); Rib pain; Fall, initial encounter; Shortness of breath; Lumbosacral spondylosis without myelopathy; Pain of right hand; Right wrist pain; Acute non-recurrent sinusitis of other sinus Start: 04-03-2024 End: 04-03-2024 ambulatory KAMILA CASTILLO Not Available Start: 03-07-2024 End: 03-07-2024 Bamboo flowsheet Bullchinedu Dugan DO Work Phone: [facility] [address] Start: 03-07-2024 End: 03-07-2024 Bamboo flowsheet Waqas Dugan DO Work Phone: [facility] [address] Start: 03-07-2024 End: 03-07-2024 Patient encounter procedure Bullchinedu Dixonett DO Work Phone: [facility] [address] Comment on above: Carpal tunnel syndro me on left (Primary Dx) Start: 03-07-2024 End: 03-07-2024 ambulatory WAQAS DUGAN Not Available Start: 03-05-2024 End: 03-05-2024 Bamboo flowsheet Kamila Castillo [employer] Work Phone: [facility] Start: 03-05-2024 End: 03-05-2024 Bamboo flowshien Castillo [employer] Work Phone: [facility] Start: 03-05-2024 End: 03-05-2024 Office outpatient visit 25 minutes Kamila Castillo [employer] Work Phone: [facility] Comment on above: Cellulitis of finger of left hand (Primary Dx); Flu vaccine need; Numbness of hand; Encounter for screening mammogram for malignant neoplasm of breast; Lymphadenopathy; Axillary pain, left; Ankylosing spondylitis of thoracic region ([facility]/HCC) Start: 03-05-2024 End: 03-05-2024 ambulatory [...] PODIATRY Start: 02-22-2024 End: 02-22-2024 ambulatory ALEX TAM Not Available Start: 01-29-2024 End: 01-29-2024 Shauna Steele MD Work Phone: [facility] Comment on above: Benign essential hyp ertension (CMS/HCC) Start: 12-14-2023 End: 12-14-2023 ambulatory ALEX TAM Not Available Start: 11-30-2023 End: 11-30-2023 ambulatory KAMILA M BIGG Not Available Start: 10-05-2023 End: 10-05-2023 ambulatory ALEX Nolberto TAM Not Available Start: 09-12-2023 End: 09-12-2023 ambulatory KAMILA M BIGG Not Available Start: 07-27-2023 End: 07-27-2023 ambulatory ALEX Nolberto TAM Not Available Start: 07-06-2023 End: 07-06-2023 ambulatory KAMILA M BIGG Not Available Start: 06-29-2023 End: 06-29-2023 ambulatory ALEX Nolberto TAM Not Available Start: 06-27-2023 End: 06-27-2023 ambulatory KAMILA M BIGG Not Available Start: 06-15-2023 End: 06-15-2023 Office outpatient visit 15 minutes Alex Tam DPM Work Phone: [facility] Comment on above: Subungual exostosis of great toe (Primary Dx); Onychocryptosis; Toe pain, right; Toe pain, left Start: 06-15-2023 End: 06-15-2023 ambulatory ALEX TAM Not Available Start: 06-15-2023 Chart abstracting [...] 05-18-2023 ambulatory ALEX TAM Not Available Start: 10-04-2022 Patient encounter procedure [facility] Work Phone: [facility] [place] Work Phone: Start: 10-04-[address] Roc Steele II Facility:[id number] Start: 09-05-2022 End: 09-05-[address] SARABJIT CORNEJO . Facility:[facility] Start: 09-03-2022 End: 09-03-2022 ambulatory SASHA DUTTA . Facility:[facility] Start: 06-06-2022 End: 06-07-[address] ROC STEELE Facility:[facility] Start: 12-16-2020 Patient encounter procedure Mone Weiss MD Work Phone: [facility] [place] Work Phone: Start: 11-25-2020 Chart Update Tasia Crawford Work Phone: [facility] [place] Work Phone: Start: 10-15-2020 Patient encounter procedure Carmen Bird MD Work Phone: [facility] [place] Work Phone: Start: 02-13-2020 Patient encounter procedure Tasia Bird [facility] [place] Work Phone: Start: 01-16-2020 Patient encounter procedure [facility] [place] Work Phone: Procedures Date Procedure Procedure Detail Performing Clinician Start: 05-12-2024 BLOOD CULTURE 1 Generic External Data Provider Start: 03-07-2024 End: 03-07-2024 Needle emg ea extremty w/paraspinl area complete Waqas Dugan DO Work Phone: Implantation of join t prosthesis Tasia Bird Plan of Treatment Date Care Activity Detail Author Start: 07-05-2024 Medicare Annual Wellness (AWV) Medicare Annual Wellness (AWV) [facility] Start: 05-23-2024 End: 05-23-2024 Patient encounter procedure 05/23/2024 2:40 PM EST Procedure Visit [facility] [address] [facility] [address] [place] [address] Alex Tma DPM [address] [facility] [address] [place] [address] [facility] Start: 05-16-2024 End: 05-16-2024 Patient encounter procedure 05/16/2024 1:00 PM EST Office Visit [facility] [address] [facility] [address] [place] [address] Kamila Castillo, [employer] [address] [place] [address] [facility] Start: 05-15-2024 End: 05-15-2025 Basic metabolic 1998 panel - Serum or Plasma Basic metabolic panel Lab Routine Acute congestive heart failure, unspecified heart failure type (CMS/HCC) Expected: 05/15/2024 (Approximate), Expires: 05/15/2025 [facility] Work Phone: Comment on above: Expected: 05/15/2024 (Approximate), Expires: 05/15/2025 Start: 05-15-2024 End: 05-15-2024 Patient encounter procedure 05/15/2024 11:30 AM EST Office Visit [facility] [address] [place] [address] Kamila Castillo NP [address] [place] [address] [facility] Start: 05-14-2024 End: 05-14-2024 Patient encounter procedure 05/14/2024 11:00 AM EST Office Visit [facility] [address] [place] [address] Kamlia Castillo [employer] [address] [place] [address] [facility] Start: 05-02-2024 End: 05-02-2024 Patient encounter procedure 05/02/2024 2:50 PM EST Procedure Visit [facility] [address] [place] [address] Alex Tam DPM [address] [facility] [address] [place] [address] [facility] Start: 04-03-2024 End: 04-03-2025 [...] [address] [place] [address] Kamila Castillo [employer] [address] [place] [address] Arrived [facility] Comment on above: Arrived Start: 03-07-2024 End: 03-07-2024 Patient encounter procedure 03/07/2024 11:00 AM EST Procedure Visit [facility] [address] [place] [address] Waqas Dugan DO [address] [place], [place] [id number] Numbness of hand [facility] Comment on above: Numbness of hand [...] Office Visit [facility] [address] [facility] [address] [place] [id number] Kamila Castillo NP [address] [facility] [address] [place] [address] [facility] Start: 02-22-2024 End: 02-22-2024 [...] PODIATRY [address] [place] [address] Alex Tam, DPM [address] [address] [facility] Start: 06-30-2023 Medicare Annual Wellness (AWV) Medicare Annual Wellness (AWV) [facility] Start: 06-29-2023 End: 06-29-2023 Patient encounter procedure 06/29/2023 2:30 PM EST Office Visit [facility] [address] [facility] [address] [place] [address] Alex Tam, DPM [address] [address] [facility] Start: 06-15-2023 End: 06-15-2023 Patient encounter procedure 06/15/2023 2:30 PM EST Office Visit [facility] [address] [facility] [address] [place] [address] Alex Tam, DPM [address] [address] [facility] Start: 10-17-2022 NPV, Provider: Roc Alvarado, Status: Pen, Time: 1:30 PM NPV, Provider: Roc Alvarado, Status: Pen, Time: 1:30 PM [facility] Work Phone: Start: 01-07-2021 FUV, Provider: Tasia Bird, Status: Pen, Time: 2:15 PM FUV, Provider: Tasia Bird, Status: Pen, Time: 2:15 PM [facility] Work Phone: Start: 12-03-2020 FUV, Provider: Tasia Bird, Status: Hang, Time: 12:45 PM FUV, Provider: Tasia Bird, Status: Hang, Time: 12:45 PM -[facility] Work Phone: BLOOD CULTURE 1 BLOOD CULTURE 1 Lab Routine 05/12/2024 8:10 PM [facility] Immunizations Immunization Date Immunization Notes Care Provider Hao allred 03-05-2024 Influenza, High-dose Seasonal, Quadrivalent, Preservative Free Kamila Castillo [employer] Work Phone: [facility] 03-01-2023 Influenza, High-dose Seasonal, Quadrivalent, Preservative Free Alex Tam DPM Work Phone: [facility] 03-01-2023 influenza virus vacc ine, unspecified formulation Roc Steele MD Work Phone: [facility] 03-31-2022 Moderna Bivalent Pereira ster Vaccination Alex Tam DPM Work Phone: [facility] 03-23-2022 Influenza, High-dose Seasonal, Quadrivalent, Preservative Free Alex Tam DPM Work Phone: [facility] 01-28-2021 Influenza, Seasonal, Quadrivalent, Adjuvanted Alex Tam DPM Work Phone: [facility] 01-30-2020 influenza, injectabl e, quadrivalent, preservative free Alex Tam DPM Work Phone: [facility] 09-26-2019 zoster vaccine recombinant N kaylas Yonatan DPM Work Phone: [facility] 05-16-2019 zoster vaccine recombinant N todd Tam DPM Work Phone: [facility] 01-31-2018 influenza, high dose seasonal, preservative-free Alex Yonatan DPM Work Phone: [facility] 01-25-2017 influenza, high dose seasonal, preservative-free Alex Tam DPM Work Phone: [facility] 02-02-2016 influenza, injectabl e, quadrivalent, contains preservative Alex Tam DPM Work Phone: [facility] 02-07-2015 pneumococcal conjuga te vaccine, 13 valent Alex Tam DPM Work Phone: [facility] 01-30-2015 seasonal influenza, intradermal, preservative free Alex Tam DPM Work Phone: [facility] 02-07-2014 seasonal influenza, intradermal, preservative free Alex Tam DPM Work Phone: [facility] 12-11-2013 pneumococcal polysaccharide vaccine, 23 valent Alex Tam DPM Work Phone: [facility] 01-17-2012 zoster vaccine, live Zoya juan ramon Tam DPM Work Phone: [facility] Payers Date Payer Category Payer Private Health Insurance SRAVANI [facility] [id number] 2022 Unknown 2008 Medicare [id number] 2008 Medicare [id number] 1959 Medicare [id number] 1959 Unknown [id number] 1946 Unknown [id number] 2.16.840.1.634053.3.579 .2.593 1946 Unknown [id number] 2.16.840.1.891784.3.579 .2.593 1946 Unknown [id number] 2.16.840.1.998430.3.579 .2.593 1946 Unknown [id number] 2.16.840.1.664726.3.579 .2.1068 1946 Unknown [id number] 2.16.840.1.925686.3.579 .2.125 1946 Unknown [id number] 2.16.840.1.076491.3.579 .2.125 1946 Unknown [id number] 2.840.1.570902.3.579 .2.1258 1946 Unknown [id number] 2.840.1.249236.3.579 .2.1258 1946 Unknown [id number] 2.840.1.931808.3.579 .2.1258 1946 Unknown [id number] 2.840.1.252153.3.579 .2.1258 1946 Unknown [id number] 2.840.1.811195.3.579 .2.1258 1946 Unknown [id number] .840.1.398401.3.579 .2.125 1946 Unknown [id number] .840.1.438829.3.579 .2.125 1946 Unknown [id number] 2.840.1.968481.3.579 .2.125 1946 Unknown [id number] 2.16840.1.270559.3.579 .2.1258 1946 Unknown [id number] 2.16.840.1.037319.3.579 .2.125 1946 Unknown [id number] 2.16840.1.771120.3.579 .2.1258 1946 Unknown [id number] 2.16.840.1.029818.3.579 .2.1259 1946 Unknown [id number] 2.16.840.1.897922.3.579 .2.1258 1946 Unknown [id number] 2.16.840.1.510812.3.579 .2.9 1946 Unknown [id number] 2.16.840.1.785683.3.579 .2.9 1946 Unknown [id number] 2.16.840.1.925986.3.579 .2.1259 Social History Date Type Detail Facility Start: 11-25-2022 End: 07-06-2023 Never a smoker Never a smoker [facility] Work Phone: Start: 10-03-2022 Tobacco smoking stat [facility] Never smoked tobacco [facility] Start: 10-03-2022 Tobacco use and exposure Smoke less tobacco non-user [facility] Start: 06-01-2023 End: 05-15-2024 Alcohol intake Lifetime non-drinker (finding) [facility] [...] Only a little [facility] (I/We) worried geeta er (my/our) food would run out before (I/we) got money to buy more. Never true [facility] Start: 1945 Sex Assigned At Not on file [facility] NEGATED: Highlighted row - - [facility] [place] Work Phone: Functional Status Date Assessment Result Facility NEGATED: Highlighted row Functional performance Functional status health issues are not documented Disease [facility] [place] Work Phone: Mental Status Date Assessment Result Facility NEGATED: Highlighted row Cognitive function [Interpretation] Cognitive status health issues are not documented Disease [facility] [place] Work Phone: Clinical Notes 06-01-2023 to 05-15-2024 Kamila Castillo, DEISY - 05/15/2024 11:30 AM Willam Castillo, DEISY - 05/07/2024 11:00 AM ESTTelephone Encounter - MERARY Pemberton - 04/16/2024 5:16 PM SAMANTHA Bishop - 03/07/2024 11:00 AM EST Note Date & Type Note Facility 05-15-2024 History of Presen t illness Narrative Images from the original note were not included. Subjective Patient ID: Luma Ribeiro is a 78 y.o. female who presents for A F/U FOR PNEUMONIA, CHF Luma presents today for F/U for pneumonia and CHF. Was admitted to [facility] on 05-12-24.She is feeling weak and SOB still. Home health has not started. Pt would benefit from Nursing, PT/OT, and aide. PT was diagnosed with generalized weakness, CHF, And pneumonia. She continues on Doxycycline. The hospital discharge pt with an order for Lasix prn. Pt educated on when to take a prn lasix. She verbalized understanding. The hospital set up [facility] but we will set pt up with Erik as they have a contract with [facility]. She is home bound due to her weakness. Current Outpatient Medications on File Prior to [...] a day as needed for muscle spasms. doxycycline (Vibra-Tabs) 100 MG tablet Take 1 tablet (100 mg) by mouth in the morning and 1 tablet (100 mg) before bedtime. Do all this for 10 days. Take with a full glass of water and do not lie down for at least 30 minutes after.. 20 tablet 0 gabapentin (Neurontin) 300 MG capsule TAKE 1 CAPSULE BY MOUTH TWICE DAILY 200 capsule 3 [] guaiFENesin-codeine (Robitussin-AC) 100-10 MG/5ML syrup Take 5 mL by mouth 4 (four) times a day as needed for cough for up to 5 days 240 mL 0 meloxicam (Mobic) 15 MG tablet TAKE 1 TABLET BY MOUTH ONCE DAILY 100 tablet 3 [] methylPREDNISolone (Medrol Dospak) 4 MG tablets Follow schedule on package instructions 21 tablet 0 metoprolol succinate XL (Toprol-XL) 50 MG 24 [...] BY MOUTH AT BEDTIME 90 tablet 0 [DISCONTINUED] furosemide (Lasix) 20 MG tablet Take 1 tablet (20 mg) by mouth Daily for 7 days 7 tablet 0 No current facility-administered medications on [...] Diagnosis Date Cardiomegaly Diverticulosis 2012 Edema Glaucoma ([facility]/HCC) Heart disease, unspecified History of [...] INJECTION x7 NERVE BLOCK Left 03/26/2019 T12-L3 [place] TOTAL HIP ARTHROPLASTY Left [place] (01-29-2020 to 01-30-2020) RADIOFREQUENCY ABLATION Left 06/25/2019 L2-L5 REFRACTIVE SURGERY 2015 SHOULDER SURGERY left TOTAL KNEE ARTHROPLASTY Bilateral left 2002 right 2002 US ASPIRATION INJECTION INTERMEDIATE JOINT 12/16/2020 US ASPIRATION INJECTION INTERMEDIATE JOINT 12/16/2020 Visit Vitals Smoking Status Never Review of Systems Constitutional: Negative. HENT: Negative. Eyes: Negative. Respiratory: Positive for cough. Cardiovascular: Negative. Gastrointestinal: Negative. Genitourinary: Negative. Musculoskeletal: Negative. Neurological: Negative. Psychiatric/Behavioral: Negative. Objective Physical Exam Constitutional: Appearance: Normal appearance. She is obese. HENT: Head: Normocephalic. Nose: Nose normal. Mouth/Throat: Mouth: Mucous membranes are dry. Pharynx: Oropharyngeal exudate present. Eyes: Conjunctiva/sclera: Conjunctivae normal. Cardiovascular: Rate and Rhythm: Normal rate and regular rhythm. Pulmonary: Effort: Pulmonary effort is normal. Breath sounds: Normal breath sounds. Comments: Occasional moist cough Abdominal: General: Bowel sounds are normal. Comments: Obese Skin: General: Skin is warm and dry. Neurological: General: No focal deficit present. Mental Status: She is alert and oriented to person, place, and time. Psychiatric: Mood and Affect: Mood normal. Behavior: Behavior normal. Thought Content: Thought content normal. Judgment: Judgment normal. Assessment/Plan Diagnoses and all orders for this visit: Edema, unspecified type Pt does not have any edema at this time. Resolved. Will continue to monitor. Pulmonary fibrosis, unspecified (CMS/HCC) This is a chronic medical condition that is stable since last assessment. No changes in treatment are suggested at this time. Acute congestive heart failure, unspecified heart failure type (CMS/HCC) - Basic metabolic panel; Future - Ambulatory referral to Home Health; Future This is a chronic medical condition that is stable since last assessment. No changes in treatment are suggested at this time. Pt instructed to take Lasix if she notices some edema, gains weight overnight or she has increased SOB doing the steps at home. Pt verbalized understanding. Generalized weakness - Ambulatory referral to Home Health; Future Home health ordered for strengthening as well as monitor pneumonia and CHF. Pneumonia of both lungs due to infectious organism Start the above medications as directed. Can take Tessalon Perles/guafenesin with codiene prn for cough. Increase water intake, get plenty of rest. Can take Tylenol prn for any discomfort or fever. No other anti-inflammatories while on steroid. Cough into elbow. Wash hands often. Advised patient that cough can linger. Follow up in our office if no improvement in one week. , unspecified part of lung - Ambulatory referral to Home Health; Future No follow-ups on file. documented in this encounter [facility] 05-07-2024 History of Presen t illness Narrative [...] TWICE DAILY 200 capsule 3 [] HYDROcodone-acetaminophen ([place]) 5-325 MG tablet Take 1 tablet by [...] Diagnosis Date Cardiomegaly Diverticulosis 2013 Edema Glaucoma ([facility]/HCC) Heart disease, unspecified History of [...] INJECTION x7 NERVE BLOCK Left 03/26/2019 T12-L3 [place] TOTAL HIP ARTHROPLASTY Left [place] (01-29-2020 to 01-30-2020) RADIOFREQUENCY ABLATION Left 06/25/2019 L2-L5 REFRACTIVE SURGERY 2015 SHOULDER SURGERY left TOTAL KNEE ARTHROPLASTY Bilateral left 2001 right 2002 US ASPIRATION INJECTION INTERMEDIATE JOINT [...] follow-ups on file. documented in this encounter [facility] 04-16-2024 Telephone encount er Note OARRS reviewed, Rx sent into patient's pharmacy. [facility] 04-16-2024 Miscellaneous Notes Formattin g of this note might be different from the original. OARRS reviewed, Rx sent into patient's pharmacy. documented in this encounter [facility] 04-03-2024 History of Presen t illness [...] breathing, coughing, lifting and movement. Treatments tried: [place], cough syrup, muscle relaxer. The treatment provided [...] TWICE DAILY 200 capsule 3 [] HYDROcodone-acetaminophen ([place]) 5-325 MG tablet Take 1 tablet by [...] Diagnosis Date Cardiomegaly Diverticulosis 2013 Edema Glaucoma ([facility]/HCC) Heart disease, unspecified History of lumbar surgery multiple times HTN (hypertension) (CMS/HCC) Hyperlipidemia (CMS/HCC) Insomnia Lumbago Lumbosacral spondylosis without myelopathy Myalgia, unspecified site Myositis Occlusion and stenosis of unspecified carotid artery without mention of cerebral infarction CARO (obstructive sleep apnea) Osteoarthrosis unspecified wheteher generalized or localized. unspecified site Osteopenia Paroxysmal supraventricular tachycardia ([facility]/HCC) Past Surgical History: Procedure Laterality Date AMB EPIDURAL STEROID INJECTION 2021 cervical neil ANKLE FRACTURE SURGERY 2018 CATARACT EXTRACTION Bilateral 2015 COLONOSCOPY 2013 HEART CATH 2016 IR INJECTION NERVE BLOCK 2018 and 2019 LUMBAR EPIDURAL INJECTION 2017 to 2021 LUMBAR TRANSFORAMINAL EPIDURAL STEROID INJECTION x7 NERVE BLOCK Left 03/26/2019 T12-L3 [place] TOTAL HIP ARTHROPLASTY Left [place] (01-29-2020 to 01-30-2020) RADIOFREQUENCY ABLATION Left 06/25/2019 [...] breathing. Lumbosacral spondylosis without myelopathy - HYDROcodone-acetaminophen ([place]) 5-325 MG tablet; Take 1 tablet by [...] follow-ups on file. documented in this encounter [facility] 03-07-2024 Note Carpal tunnel syndro me, left, severe. Progressed substantially when compared to EDX evaluation in 2021. C8 radiculopathy, left, moderate. Progressed when compared to EDX evaluation in 2021 [facility] 03-07-2024 Note Carpal tunnel syndro me, left, severe. Progressed substantially when compared to EDX evaluation in 2021. C8 radiculopathy, left, moderate. Progressed when compared to EDX evaluation in 2021 [facility] 03-07-2024 History of Presen t illness Narrative Images from the original note were not included. Reason for Appointment: EMG Patient: Luma Ribeiro : 1945 EMG Computer: [employer] Referring Physician: Kamila Castillo CNP EMG: PABLO hypoid gear generator: Jimmy Gibson RT(R) Office Location: [place] Reason for EMG: c/o numbness/tingling in left hand/forearm especially in 2nd & 3rd digits, weakness in left hand. No hx of DM. Not on blood thinners. Comments: Procedure was explained to the patient who expressed understanding. Patient appeared to have tolerated the test well despite some discomfort due to the nature of the test. documented in this encounter [facility] 03-05-2024 History of Presen t illness [...] inciting event Pt feels she has decreased learning consultant strength in left hand Hypertension This [...] MOUTH TWICE DAILY 200 capsule 3 HYDROcodone-acetaminophen ([place]) 5-325 MG tablet Take 1 tablet by [...] at bedtime 90 tablet 1 [DISCONTINUED] HYDROcodone-acetaminophen ([place]) 5-325 MG tablet Take 1 tablet by [...] INJECTION x7 NERVE BLOCK Left 03/26/2019 T12-L3 [place] TOTAL HIP ARTHROPLASTY Left [place] (01-29-2020 to 01-30-2020) RADIOFREQUENCY ABLATION Left 06/25/2019 [...] need - Influenza, high-dose seasonal, quadrivalent, PF (LJJ390) (Fluzone High Dose Quad North 0.7mL dose) [...] follow-ups on file. documented in this encounter [facility] 02-29-2024 Telephone encount er Note OARRS reviewed, Rx sent into patient's pharmacy. [facility] 02-29-2024 Miscellaneous Notes Formattin g of this note might be different from the original. OARRS reviewed, Rx sent into patient's pharmacy. Hydrocodone 325 DDM IN [place] She had an appt today for a med follow up with kamila but had to change it due to her not being in. She said she has about 6 pills left. She did reschedule her med follow up for next Monday. documented in this encounter [facility] 02-29-2024 Telephone encount er Note Hydrocodone 325 DDM IN [place] She had an appt today for a med follow up with kamila but had to change it due to her not being in. She said she has about 6 pills left. She did reschedule her med follow up for next Monday. [facility] 01-29-2024 Telephone encount er Note Amlodipine sent [facility] 01-29-2024 Miscellaneous Notes Formattin g of this note might be different from the original. Amlodipine sent documented in this encounter [facility] 06-15-2023 History of Presen t illness [...] min Stress: No Stress Concern Present (11/25/2022) [employer] - Occupational Stress Questionnaire Feeling of Stress : Only a little Social Connections: Moderately Isolated (11/25/2022) Social Connection and Isolation Panel [NHANES] Frequency of Communication with Friends and Family: More than three times a week Frequency of Social Gatherings with Friends and Family: Once a week Attends Alevism Services: Never Active Member of Clubs or [...] Patient may continue with conservative treatments including gnvh-qfw-jopreha anti-inflammatories and other treatments suggested today. Patient may want to be scheduled for surgical intervention in the near future. Patient have the right hallux subungual exostectomy with the lateral left hallux partial permanent nail avulsion in the near future Alex Tam DPM documented in this encounter [facility] 06-01-2023 History of Presen t illness [...] Diagnosis Date Cardiomegaly Diverticulosis 2012 Edema Glaucoma ([facility]) Heart disease, unspecified History of lumbar surgery multiple times HTN (hypertension) (CMS/HCC) Hyperlipidemia (CMS/[facility]) Insomnia Lumbago Lumbosacral spondylosis without myelopathy Myalgia, [...] min Stress: No Stress Concern Present (11/25/2022) [employer] - Occupational Stress Questionnaire Feeling of Stress : Only a little Social Connections: Moderately Isolated (11/25/2022) Social Connection and Isolation Panel [NHANES] Frequency of Communication with Friends and Family: More than three times a week Frequency of Social Gatherings with Friends and Family: Once a week Attends Alevism Services: Never Active Member of Clubs or [...] Patient may continue with conservative treatments including evvv-maq-xyimlgn anti-inflammatories and other treatments suggested today. Patient [...] Alex Tam DPM documented in this encounter [facility] Healthcare Evaluation note Diagnosis Subungual exostosis [...] adult (CMS/HCC) [facility] Diagnosis Edema, unspecified type- Primary Pulmonary fibrosis, unspecified (CMS/HCC) Acute congestive heart failure, unspecified heart failure type (CMS/HCC) Generalized weakness Pneumonia of both lungs due to infectious organism, unspecified part of lung documented in this encounter [facility] Present illness NarrativeLuma is a 75-year-old female patient of Dr. Bird who is here for ultrasound-guided right intraarti cular shoulder injection. She has a history of pain and discomfort. She was seen and evaluated and referred to me for first lifetime intraarticular shoulder injection, which the patient accepts[facility] Work Phone: History of Present illness [...] normal pronation supination wrist flexion extension and learning consultant strength. Distal pulses and sensation are intact. Limited forward flexion to about 25 degrees lateral abduction to about 15 unable to perform any external rotation but internal he can get to the small of her back. Herexam does not allow for much of a true Neer's Shelby or Bulloch's test. * Diagnostics: See dictated report from today, previous outside CT scan report of the humerus reviewed, and is available in the [facility] chart. * Procedure: None * [...] the patient's CT scan report reviewed in [facility] Other than the anterior medial dislocation and [...] grammatical areas may persist related to the [employer] software * Taniya Canchola MD * Office: * . -[facility] Work Phone: History of Present illness Narrative* Alex Tam, DPM - 02/22/2024 2:50 PM EDT Patient: [...] min Stress: No Stress Concern Present (11/25/2022) [employer] - Occupational Stress Questionnaire Feeling of Stress : Only a little Social Connections: Moderately Isolated (11/25/2022) Social Connection and Isolation Panel [NHANES] Frequency of Communication with Friends and Family: More than three times a week Frequency of Social Gatherings with Friends and Family: Once a week Attends Alevism Services: Never Active Member of Clubs or [...] 9 Alex Tam DPM [facility] Narrative* Other Medical (Routine) - Closed Specialty Diagnoses / Procedures Referred By Contac t Referred To Contact Neurology Diagnoses Numbness of hand Procedures [place] OFFICE/OUTPATIENT NEW HIGH MDM 60 MINUTES Kamila Castillo, DEISY [address] [facility] [address] [place] [address] Phone: tel: fax: Waqas Dugan, [address] [place] [address] Phone: tel: fax: Referral ID Status Reason Start Date Expiration Date V isits Requested Visits Authorized [id number] Closed Perform Procedure 03/05/2024 09/01/2024 1 1 [facility] Chief Complaint * New problem * Right shoulder pain MP Refer : RT shoulder ultra sound guided injection* Right shoulder pain, here for injection. 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 ysician Group DATE CREATED AUTHOR AUTHOR'S ORGANIZ ATION 05/13/2024 [facility] dical Specialists EPIC Reason for Visit (unrecogniz ed section and [...] Care Teams (unrecognized sec tion and content) Pipe Connector Relationship Specialty Start Date End Date Roc Steele MD [address] [place] [address] PCP - ACO Reach 09/22/22 Roc Steele MD [address] [place] [address] PCP - General Internal Medicine 09/28/22 Pipe Connector Relationship Specialty Start Date End Date Roc Steele MD [address] [place] [address] PCP - ACO Reach 09/22/22 Roc Steele MD [address] [place] [address] PCP - General Internal Medicine 09/28/22 Pipe Connector Relationship Specialty Start Date End Date Roc Steele MD [address] [place] [address] PCP - ACO Reach 09/22/22 Roc Steele MD [address] [place] [address] PCP - General Internal Medicine 09/28/22 Pipe Connector Relationship Specialty Start Date End Date Roc Steele MD [address] [place] [address] PCP - General Internal Medicine 09/28/22 Roc Steele MD [address] [place] [address] PCP - ACO Reach 08/30/23 Pipe Connector Relationship Specialty Start Date End Date Roc Steele MD [address] [place] [address] PCP - General Internal Medicine 09/28/22 Roc Steele MD [address] [place] [address] PCP - ACO Reach 08/30/23 Pipe Connector Relationship Specialty Start Date End Date Roc Steele MD [address] [place] [address] PCP - General Internal Medicine 09/28/22 Roc Steele MD [address] [place] [address] PCP - ACO Reach 08/30/23 Pipe Connector Relationship Specialty Start Date End Date Roc Steele MD [address] [place] [address] PCP - General Internal Medicine 09/28/22 Roc Steele MD [address] [place] [address] PCP - ACO Reach 08/30/23 Pipe Connector Relationship Specialty Start Date End Date Roc Steele MD [address] [place] [address] PCP - General Internal Medicine 09/28/22 Roc Steele MD [address] [place] [address] PCP - ACO Reach 08/30/23 Pipe Connector Relationship Specialty Start Date End Date Roc Steele MD [address] [place] [address] PCP - General Internal Medicine 09/28/22 Roc Steele MD [address] [place] [address] PCP - ACO Reach 08/30/23 Pipe Connector Relationship Specialty Start Date End Date Roc Steele MD [address] [place] [address] PCP - General Internal Medicine 09/28/22 Roc Steele MD [address] [place] [address] PCP - ACO Reach 08/30/23 Waqas Dugan DO [address] [place] [address] Referring Physician Neurology 03/07/24 Pipe Connector Relationship Specialty Start Date End Date Roc Steele MD [address] [place] [address] PCP - General Internal Medicine 09/28/22 Roc Steele MD [address] [place] [address] PCP - ACO Reach 08/30/23 Waqas Dugan DO [address] [place] [address] Referring Physician Neurology 03/07/24 Pipe Connector Relationship Specialty Start Date End Date Roc Steele MD [address] [place] [address] PCP - General Internal Medicine 09/28/22 Roc Steele MD [address] [place] [address] PCP - ACO Reach 08/30/23 Waqas Dugan DO [address] [place] [address] Referring Physician Neurology 03/07/24 Pipe Connector Relationship Specialty Start Date End Date Roc Steele MD [address] [place] [address] PCP - General Internal Medicine 09/28/22 Roc Steele MD [address] [place] [address] PCP - ACO Reach 08/30/23 Waqas Dugan DO [address] [place] [address] Referring Physician Neurology 03/07/24 Pipe Connector Relationship Specialty Start Date End Date Roc Steele MD [address] [place] [address] PCP - General Internal Medicine 09/28/22 Roc Steele MD [address] [place] [address] PCP - ACO Reach 08/30/23 Waqas Dugan DO [address] [place] [address], [place] [address] Referring Physician Neurology 03/07/24 Pipe Connector Relationship Specialty Start Date End Date Roc Steele MD [address] [place] [address] PCP - General Internal Medicine 09/28/22 Roc Steele MD [address] [place] [address] PCP - ACO Reach 08/30/23 Pipe Connector Relationship Specialty Start Date End Date Roc Steele MD [address] [place] [address] PCP - General Internal Medicine 09/28/22 Roc Steele MD [address] [place] [address] PCP - ACO Reach 08/30/23 Waqas Dugan DO [address] [place] [address], [place] [address] Referring Physician Neurology 03/07/24 Pipe Connector Relationship Specialty Start Date End Date Roc Steele MD [address] [place] [address] PCP - General Internal Medicine 09/28/22 Roc Steele MD [address] [place] [address] PCP - ACO Reach 08/30/23 Waqas Dugan DO [address] [place] [address], [place] [address] Referring Physician Neurology 03/07/24 Pipe Connector Relationship Specialty Start Date End Date Roc Steele MD [address] [facility] [address] [place] [address] PCP - General Internal Medicine 09/28/22 Roc Steele MD [address] [facility] [address] [place] [address] PCP - ACO Reach 08/30/23 Waqas Dugan DO [address] [place] [address] Referring Physician Neurology 03/07/24 FOR RECORDS PERTAINING [...] BE BASED ON THE PRIMARY CLINICAL RECORDS. [employer] [facility]. provides no warranty or guarantee of the accuracy or completeness of information in this document.
--- NOTE | 2024-05-16 16:52 | XR_ITS ---
[address] [address] Patient Name: LUMA RIBEIRO MRN: [id number] date: 1945 Sex: F Assigned Patient Location: ER Current Patient Location: ED.MAIN Accession/Order Number: [id number] Exam Date: 05/16/2024 17:40 Report Date: 05/16/2024 19:32 At the request of: LEE THORPE Procedure: XR chest 1V EXAMINATION: XR chest 1V, , 05/16/2024 5:40 PM EST INDICATION: Weakness HISTORY: Ordering Provider Reason for Exam: Weakness Technologist Note: Additional: COMPARISON: 05/12/2024. TECHNIQUE: Chest x-ray: One view. FINDINGS: No pneumothorax, pleural effusion or focal airspace consolidation. Stable enlarged cardiomediastinal silhouette is seen. Bony thorax is unremarkable. XR/XR chest 1V IMPRESSION: No acute cardiopulmonary process. Electronically authenticated by: GABRIELLA DOMINIQUE Date: 05/16/2024 19:32
--- NOTE | 2024-05-16 16:52 | CT_ITS ---
The [address] [address] Patient Name: LUMA RIBEIRO MRN: [id number] date: 1945 Sex: F Assigned Patient Location: ER Current Patient Location: ER Accession/Order Number: [id number] Exam Date: 05/16/2024 17:43 Report Date: 05/16/2024 18:17 At the request of: LEE THORPE Procedure: CT head/brain wo con EXAM: CT head/brain wo con HISTORY: Weakness COMPARISON: CT brain 12/01/2022 TECHNIQUE: Axial CT scans through the head were obtained without IV contrast administration. Dose reduction techniques were achieved by using: automated exposure control and/or adjustment of mA and /or kV according to patient size and/or use of iterative reconstruction technique. FINDINGS: There is no evidence of acute intracranial hemorrhage or abnormal extra-axial fluid collection. No mass effect or midline shift is seen. There is no evidence of large acute territorial infarction. There is no hydrocephalus. There is age appropriate mild cortical atrophy. Mild decreased attenuation of the supratentorial white matter, likely represents chronic microvascular ischemia. To the limit of CT, the posterior fossa appears unremarkable. There are atherosclerotic calcifications of anterior and posterior circulations. No definite acute fracture is identified. Soft tissues are unremarkable. The visualized orbits show no abnormality. The visualized paranasal sinuses show no air-fluid level. Mastoid air cells are clear. CT/CT head/brain wo con IMPRESSION: No CT evidence of acute intracranial abnormality. If there is sufficient clinical concern for acute infarct, consider MRI for further evaluation. Mild chronic microvascular ischemia and involutional changes. Intracranial atherosclerosis. Electronically authenticated by: IQRA UNLU Date: 05/16/2024 18:17
--- NOTE | 2024-05-16 16:52 | ECG_ITS ---
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
--- NOTE | 2024-05-16 16:53 | ED.GENADUL1 ---
HPI HPI - General Adult General Chief complaint: Weakness Stated complaint: WEAKNESS Time Seen by Provider: 05/16/24 16:29 Source: patient Mode of arrival: ambulance Limitations: no limitations History of Present Illness HPI narrative: Patient is a 78-year-old female with a history of recent diagnosis of pneumonia, acute kidney injury and CHF who presents to the emergency department by ambulance for generalized weakness. She was discharged from this emergency department 2 days ago and states for the last 2 days she has had weakness in her legs, been unable to stand or walk very well. She has had multiple lift assist from EMS over the last 2 days. She states she had 1 incident yesterday where she was not able to support herself and fell onto the side of the tub, she landed on her bottom and has no injury or residual pain from this. She takes hydrocodone for chronic back pain. She denies chest pain. She states she has had ongoing shortness of breath since she was admitted to the hospital for cough and weakness. She was prescribed Lasix for CHF, she states that she has been weighing herself with no increase in her weight and has not needed to take a Lasix. She states she feels very dry despite drinking fluids at home. She is tearful at initial interview and states she feels she needs to be admitted, she is interested in a rehab or senior living placement. Related Data Home Medications ?Medication ?Instructions ?Recorded ?Confirmed alprazolam 0.25 mg tablet 0.25 mg PO BID PRN anxiety 12/01/22 05/12/24 gabapentin 300 mg capsule 300 mg PO BID 12/01/22 05/12/24 hydrocodone 5 mg-acetaminophen 325 1 tab PO Q6H PRN pain 12/01/22 05/12/24 mg tablet meloxicam 15 mg tablet 15 mg PO DAILY 12/01/22 05/12/24 nortriptyline 10 mg capsule 30 mg PO BEDTIME 12/01/22 05/12/24 pantoprazole 40 mg tablet,delayed 40 mg PO DAILY 12/01/22 05/12/24 release simvastatin 10 mg tablet 10 mg PO DAILY 12/01/22 05/12/24 zolpidem 10 mg tablet 10 mg PO DAILY 12/01/22 05/12/24 tizanidine 4 mg tablet 4 mg PO DAILY 05/12/24 05/12/24 Previous Rx's ?Medication ?Instructions ?Recorded doxycycline hyclate 100 mg tablet 100 mg PO BID 7 days #14 tabs 05/14/24 furosemide 20 mg tablet (Lasix) 20 mg PO DAILY PRN edema #7 tabs 05/14/24 metoprolol succinate 50 mg 50 mg PO BID #0 tabs 05/14/24 tablet,extended release 24 hr Allergies Allergy/AdvReac Type Severity Reaction Status Date / Time clarithromycin Allergy Severe Rash Verified 12/01/22 14:27 moxifloxacin (From Avelox) Allergy Severe tongue Verified 12/01/22 14:27 swelling Sulfa (Sulfonamide Allergy Unknown Verified 12/01/22 14:27 Antibiotics) ciprofloxacin (From Cipro) Allergy Rash Verified 12/01/22 14:27 Opioid HPI Opioid Management Most Recent Opioid Data: Last Pain Scale 3 05/14/24 09:13 05/14/24 Last Pain Assessment 05/13/24 09:40 Last Pain Assessment 05/14/24 14:01 Last ORT Total Score 0 05/12/24 21:38 05/12/24 Last ORT Risk Category Low Risk 05/12/24 21:38 05/12/24 Review of Systems ROS Constitutional Denies: fever or chills Ears, nose, mouth, and throat Denies: throat pain or nasal congestion Cardiovascular Denies: chest pain Respiratory Reports: shortness of breath and cough Gastrointestinal Denies: nausea or vomiting Musculoskeletal Reports: back pain Integumentary/Breast Denies: rash Neurological Reports: weakness in extremities; Denies: numbness in extremities or dizziness Hematologic/Lymphatic Denies: easy bruising or easy bleeding PFSH [facility] Medical History (Updated 05/16/24 @ 19:06 by MERARY Ovalle) GERD without esophagitis ?K21.9 - Gastro-esophageal reflux disease without esophagitis (ICD-10) Lump of left breast ?N63.20 - Unspecified lump in the left breast, unspecified quadrant (ICD-10) High cholesterol ?E78.00 - Pure hypercholesterolemia, unspecified (ICD-10) High blood pressure ?I10 - Essential (primary) hypertension (ICD-10) Anxiety ?F41.9 - Anxiety disorder, unspecified (ICD-10) Macular degeneration ?H35.30 - Unspecified macular degeneration (ICD-10) Degenerative disc disease Fibromyalgia ?M79.7 - Fibromyalgia (ICD-10) Right shoulder pain ?M25.511 - Pain in right shoulder (ICD-10) Sleep apnea ?G47.30 - Sleep apnea, unspecified (ICD-10) Surgical History Carpal tunnel syndrome, left ?G56.02 - Carpal tunnel syndrome, left upper limb (ICD-10) History of arthroplasty of right ankle ?Z96.661 - Presence of right artificial ankle joint (ICD-10) History of bilateral knee replacement ?Z96.653 - Presence of artificial knee joint, bilateral (ICD-10) History of right hip replacement ?Z96.641 - Presence of right artificial hip joint (ICD-10) Family History Mother Family history of CHF (congestive heart failure) Sister Family history of CHF (congestive heart failure) Son Family history of cancer Family history of diabetes mellitus Family history of hypertension Social History Within the past year, how often did you have a drink containing alcohol: never Score interpretation: A score less than 3 is consistent with normal alcohol consumption. Smoking status: Never smoker Non-prescribed substance use: denies use Previous occupational history: retired Highest level of school completed/degree received: GED or equivalent Are you now , , , , never or living with a partner: In a typical week, how many times do you talk on the telephone with family, friends, or neighbors: 3 or more times per week How often do you get together with friends or relatives: 3 or more times per week How often do you attend druze or sikhism services: never Little interest or pleasure in doing things: not at all Feeling down, depressed, or hopeless: not at all Feel stressed/tense/nervous/anxious/difficulty sleeping: not at all Do you think of yourself as: straight/heterosexual Gender Identity: female Exam Narrative Exam Narrative: Gen.: Awake, alert, in no distress Head: Normocephalic, atraumatic ENT: Moist mucous membranes Respiratory: No respiratory distress, lungs clear bilaterally Cardio: Regular rate and rhythm Gastrointestinal: Abdomen is soft, nondistended and nontender to palpation Extremities: Moves extremities equally, no injuries noted Psych: Normal mood and affect Neuro: No focal neuro deficit Skin: Warm, dry, intact Constitutional Vital Signs, click to edit/add: Last Vital Signs Temp 97.4 F L 05/16/24 15:47 Pulse 79 05/16/24 15:47 Resp 20 05/16/24 15:47 BP 122/91 05/16/24 15:47 Pulse Ox 98 05/16/24 15:47 O2 Del Method Room Air 05/16/24 15:47 Course Vital Signs Vital signs: Vital Signs Temperature 97.4 F L 05/16/24 15:47 Pulse Rate 79 05/16/24 15:47 Respiratory Rate 20 05/16/24 15:47 Blood Pressure 122/91 05/16/24 15:47 Pulse Oximetry 98 05/16/24 15:47 Oxygen Delivery Method Room Air 05/16/24 15:47 Temperature 97.4 F L 05/16/24 15:47 Pulse Rate 79 05/16/24 15:47 Respiratory Rate 20 05/16/24 15:47 Blood Pressure 122/91 05/16/24 15:47 Pulse Oximetry 98 05/16/24 15:47 Oxygen Delivery Method Room Air 05/16/24 15:47 Medical Decision Making MDM Narrative Medical decision making narrative: This patient was treated with gentle fluids in light of recent admission for CHF. She is generally weak and unable to reposition herself without assistance in the bed and has not been able to ambulate. She is a fall risk for home. Her workup is otherwise unremarkable including CT of the brain, chest x-ray, lab studies which show improvement of acute kidney injury and CHF. Patient is unable to function at home safely and cannot be discharged as she is not able to walk or transfer at her baseline. She is requesting admission for rehab or senior living placement. She is admitted to the hospitalist for further evaluation and treatment. SUPERVISED APC VISIT, PHYSICIAN ATTESTATION: Based on the medical record the care appears appropriate. ? Medical Records Medical records reviewed: Yes I reviewed the patient's medical records Lab Data Lab results reviewed: Yes I reviewed the patient's lab results Labs: Lab Results 05/16/24 05/16/24 05/16/24 Range/Units 17:20 17:25 17:45 WBC 11.0 (4.0-11.0) 10^3/uL RBC 4.44 (4.20-5.40) 10^6/uL Hgb 14.5 (12.0-16.0) g/dL Hct 42.1 (36.0-48.0) % MCV 94.8 (81.0-99.0) fL MCH 32.7 (26.7-34.0) pg MCHC 34.4 (29.9-35.2) g/dL RDW 12.9 (11.0-15.0) % Plt Count 198 (150-450) 10^3/uL MPV 10.9 (9.5-13.5) fL Neut % (Auto) 48.1 (43.0-75.0) % Lymph % (Auto) 35.1 (20.5-60.0) % Knox % (Auto) 13.2 H (1.7-12.0) % Eos % (Auto) 1.4 (0.9-7.0) % Baso % (Auto) 0.6 (0.2-2.0) % Neut # (Auto) 5.3 (1.4-6.5) 10^3/uL Lymph # (Auto) 3.9 H (1.2-3.8) 10^3/uL Knox # (Auto) 1.5 H (0.3-0.8) 10^3/uL Eos # (Auto) 0.2 (0.0-0.7) 10^3/uL Baso # (Auto) 0.1 (0.0-0.1) 10^3/uL Abs Immat Gran (auto) 0.17 H (0.00-0.03) 10^3/uL Imm/Tot Granulo (auto) 1.6 H (0.0-0.5) % PT 11.9 H (9.0-11.6) sec INR 1.14 Sodium 137 (136-145) mmol/L Potassium 4.0 (3.5-5.1) mmol/L Chloride 98 (98-107) mmol/L Carbon Dioxide 28.6 (21.0-32.0) mmol/L Anion Gap 14.4 BUN 33.0 H (7.0-18.0) mg/dL Creatinine 1.27 H (0.55-1.02) mg/dL Est GFR ( Amer) 49 L (>=60 mL/min/1.73m^2) Est GFR (Non-Af Amer) 41 L (>=60 mL/min/1.73m^2) BUN/Creatinine Ratio 26.0 Glucose 97 (74-106) mg/dL Lactate 2.1 H (0.4-2.0) mmol/L Calcium 9.1 (8.5-10.1) mg/dL Total Bilirubin 1.1 H (0.2-1.0) mg/dL AST 39 H (15-37) U/L ALT 26 (14-59) U/L Alkaline Phosphatase 112 (46-116) U/L Troponin I High Sens 22.3 (4.0-51.3) pg/mL NT-Pro-B Natriuret Pep 258.0 (<=1800.0) pg/mL Total Protein 6.5 (6.4-8.2) g/dL Albumin 3.2 L (3.4-5.0) g/dL Globulin 3.3 g/dL Albumin/Globulin Ratio 1.0 TSH 1.096 (0.358-3.740) uIU/mL Urine Color Lt. yellow (YELLOW) Urine Clarity Clear (CLEAR) Urine pH 5.5 (5.0-9.0) Ur Specific Dell 1.010 (1.005-1.025) Urine Protein Negative (NEG/TRACE) mg/dL Urine Glucose (UA) Negative (NEGATIVE) mg/dL Urine Ketones Negative (NEGATIVE) mg/dL Urine Occult Blood Negative (NEGATIVE) Urine Nitrite Negative (NEGATIVE) Urine Bilirubin Negative (NEGATIVE) Urine Urobilinogen 0.2 (0.2-1.0) EU/dL Ur Leukocyte Esterase Negative (NEGATIVE) Urine RBC None seen (0-2) #/HPF Urine WBC None seen (NONE SEEN) #/HPF Ur Squamous Epith Cells Rare (NONE/RARE) #/LPF Urine Crystals None seen (None Seen) #/HPF Urine Bacteria None seen (NONE SEEN) #/HPF Urine Casts None seen (NONE SEEN) #/LPF Urine Mucus Small A (NONE SEEN) Ur Culture Indicated? No Influenza Type A Ag Negative Influenza Type B Ag Negative RSV Antigen Not detected (NOT DETECTE) SARS-CoV-2 Ag (CV2AG) Negative (NEGATIVE) Imaging Data CT scan - head: Attestation: I have reviewed the pertinent imaging results. Radiologist's impression: ITS Impressions Head CT 05/16/24 16:52 IMPRESSION: No CT evidence of acute intracranial abnormality. If there is sufficient clinical concern for acute infarct, consider MRI for further evaluation. Mild chronic microvascular ischemia and involutional changes. Intracranial atherosclerosis. Electronically authenticated by: IQRA JOHNSON Date: 05/16/2024 18:17 ECG Data Attestation: I personally reviewed and interpreted this ECG as follows: (Normal sinus rhythm at a rate of 69, no acute ST elevation or ectopy. EKG reviewed by attending physician.) Discharge Plan Discharge Chief Complaint: Weakness Patient Disposition: Admitted as Observation Time of Disposition Decision: 19:29 Prescriptions / Home Meds: No Action alprazolam 0.25 mg tablet 0.25 mg PO BID PRN (Reason: anxiety) gabapentin 300 mg capsule 300 mg PO BID hydrocodone-acetaminophen 5-325 mg tablet 1 tab PO Q6H PRN (Reason: pain) meloxicam 15 mg tablet 15 mg PO DAILY nortriptyline 10 mg capsule 30 mg PO BEDTIME pantoprazole 40 mg tablet,delayed release (DR/EC) 40 mg PO DAILY simvastatin 10 mg tablet 10 mg PO DAILY zolpidem 10 mg tablet 10 mg PO DAILY tizanidine 4 mg tablet 4 mg PO DAILY doxycycline hyclate 100 mg tablet 100 mg PO BID 7 Days Qty: 14 0RF furosemide [Lasix] 20 mg tablet 20 mg PO DAILY PRN (Reason: edema) Qty: 7 0RF metoprolol succinate 50 mg tablet extended release 24 hr 50 mg PO BID Qty: 0 0RF Print Language: Macanese Referrals: REJI FORRESTER [Primary Care Provider] - 1 week
[2024-05-16 17:34] LABS: Basophils Absolute Auto 0.1 10^3/uL (0.0-0.1); Basophils Percent Auto 0.6 % (0.2-2.0); Eosinophils Absolute Auto 0.2 10^3/uL (0.0-0.7); Eosinophils Percent Auto 1.4 % (0.9-7.0); Hematocrit 42.1 % (36.0-48.0); Hemoglobin 14.5 g/dL (12.0-16.0); Immature Granulocytes Abs Auto 0.17 10^3/uL (0.00-0.03); Immature Granulocytes Pct Auto 1.6 % (0.0-0.5); Lymphocytes Absolute Auto 3.9 10^3/uL (1.2-3.8); Lymphocytes Percent Auto 35.1 % (20.5-60.0); Mean Corpuscular HGB Conc 34.4 g/dL (29.9-35.2); Mean Corpuscular Hemoglobin 32.7 pg (26.7-34.0); Mean Corpuscular Volume 94.8 fL (81.0-99.0); Mean Platelet Volume 10.9 fL (9.5-13.5); Monocytes Absolute Auto 1.5 10^3/uL (0.3-0.8); Monocytes Percent Auto 13.2 % (1.7-12.0); Neutrophils Absolute Auto 5.3 10^3/uL (1.4-6.5); Neutrophils Percent Auto 48.1 % (43.0-75.0); Platelet Count 198 10^3/uL (150-450); Red Blood Count 4.44 10^6/uL (4.20-5.40); Red Cell Distribution Width 12.9 % (11.0-15.0)
[2024-05-16 17:56] LABS: Anion Gap 14.4
[2024-05-16 17:59] LABS: Bilirubin Urine NEGATIVE (NEGATIVE); Blood Urine NEGATIVE (NEGATIVE); Clarity Urine CLEAR (CLEAR); Color Urine LT. YELLOW (YELLOW); Glucose Urine UA NEGATIVE (NEGATIVE); Ketones Urine NEGATIVE (NEGATIVE); Leukocyte Esterase Urine NEGATIVE (NEGATIVE); Nitrite Urine NEGATIVE (NEGATIVE); Protein Urine NEGATIVE (NEG/TRACE); Urobilinogen Urine 0.2 EU/dL (0.2-1.0); pH Urine 5.5 (5.0-9.0)
[2024-05-16 18:03] LABS: Alanine Aminotransferase 26 U/L (14-59); Albumin Level 3.2 g/dL (3.4-5.0); Alkaline Phosphatase 112 U/L (46-116); Aspartate Amino Transferase 39 U/L (15-37); Bilirubin Total 1.1 mg/dL (0.2-1.0); Calcium 9.1 mg/dL (8.5-10.1); Carbon Dioxide 28.6 mmol/L (21.0-32.0); Chloride 98 mmol/L (98-107); Estimated GFR (African America 49 (>=60 mL/min/1.73m^2); Estimated GFR (Non-African Ame 41 (>=60 mL/min/1.73m^2); Globulin 3.3 g/dL; Glucose 97 mg/dL (74-106); Sodium 137 mmol/L (136-145); Thyroid Stimulating Hormone 1.096 uIU/mL (0.358-3.740); Total Protein 6.5 g/dL (6.4-8.2)
[2024-05-16] MEDS: 0.9 % SODIUM CHLORIDE 1,000 ML 100 ML IV (18:03)
[2024-05-16 18:19] LABS: Troponin I High Sensitivity 22.3 pg/mL (4.0-51.3)
[2024-05-16 18:20] LABS: Lactate/Lactic Acid 2.1 mmol/L (0.4-2.0)
[2024-05-16 18:26] LABS: Influenza Virus A Antigen Negative; Influenza Virus B Antigen Negative; Internal Control Within Normal Limits; Respiratory Syncytial Virus Not Detected (NOT DETECTE); SARS-CoV-2 Ag NEGATIVE (NEGATIVE)
[2024-05-16 18:30] LABS: Bacteria Urine NONE SEEN #/HPF (NONE SEEN); Cast Seen? NONE SEEN #/LPF (NONE SEEN); Crystals Seen? None Seen #/HPF (None Seen); Mucus Urine SMALL (NONE SEEN); RBC Urine NONE SEEN #/HPF (0-2); Squamous Epithelial Cell Urine RARE #/LPF (NONE/RARE); Urine Culture Indicated NO; WBC Urine NONE SEEN #/HPF (NONE SEEN)
[2024-05-16 18:30] LABS: INR 1.14; Prothrombin Time 11.9 sec (9.0-11.6)
--- NOTE | 2024-05-16 19:38 | PC.NURSE ---
Pt to be admitted to [facility] on telemetry. Pt aware. Awaiting bed assignment.
--- OUTSIDE RECORDS SUMMARY | 2024-05-16 20:43 | XMS_ITS | CCD ---
Author Organization 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 Name Role Phone Tasia Bird Unavailable Unavailable [...] Briscoe Attending U Roc Wellington MD Unavailable [phone] Roc Steele MD Primary Care Provider Roc Steele MD Unavailable [phone] Waqas Dugan DO Unavailable Mala Sapp Attending UnavailMala Kenney Admitting UnavailRoc [...] sources) Clarithromycin; Translations: [clarithromycin] Drug Allergy Unknown [facility] Work Phone: Quinolones (antibiotic) (18 sources) moxifloxacin; Translations: [moxifloxacin] Drug Allergy Anaphylaxis, Unknown [facility] Work Phone: (20 sources) Ciprofloxacin; Translations: [ciprofloxacin] Drug Allergy 3 Unknown [facility] (20 sources) Clarithromycin; Translations: [clarithromycin] Drug Allergy 3 Unknown [facility] Repository (4 sources) moxifloxacin; Translations: [Avelox] Drug Allergy 3 Anaphylaxis [facility] Repository (20 sources) moxifloxacin; Translations: [moxifloxacin] Drug Allergy 3 Anaphylaxis [facility] Work Phone: (1 source) Ciprofloxacin Drug Allergy 3 [facility] Repository (1 source) Sulfonamides (Antibiotic) Drug allergy (disorder) 3 [facility] Repository (20 sources) Sulfanilamide Allergy to substance 3 [facility] Medications Current Medications Medication Drug Class(es) Dates Sig (Normalized) Sig (Original) acetaminophen 325 mg / HYDROcodone bitartrate 5 mg oral tablet (12 sources) Opioid Agonist Start: 02-29-2024 End: 05-03-2024 take 1 tablet by mouth every four hours for pain HYDROcodone-acetam inophen ([place]) 5-325 MG tablet Indications: Lumbosacral spondylosis without [...] Active doxycycline hyclate 100 mg oral tablet (6 sources) Tetracycline-cla ss Drug Start: 05-07-19 25 [...] 3 Chronic Other aftercare (1 source) Other intermediate (current) drug therapy; Translations: [OTH [facility] CURRENT DRUG THERAPY] Onset: 3 Episodic Other [...] (oral)] Onset: 09-30-2022 09-30-2022 Episodic Mood disorders (20 sources) Mood disorders Onset: 07-06-2023 07-06-2023 Nonmalignant [...] Test Name Value Interpretation Reference Range Facility ALL BASIC METABOLIC PANELon 05-16-2024 Anion gap [Moles/Vol] 12 mmol/L [facility] Calcium [Mass/Vol] 9 mg/dL 8.5 - 10.1 mg/dL [facility] Chloride [Moles/Vol] 98 mmol/L 98 - 107 mmol/L [facility] CO2 [Moles/Vol] 29.6 mmol/L 21.0 - 32.0 mmol/L [facility] Creatinine [Mass/Vol] 1.42 mg/dL High 0.55 - 1.02 mg/dL [facility] GFR/1.73 sq M.predicted CKD-EPI (S/P/Bld) [Vol rate/Area] 43 Low >=60 mL/min/1.73 m 2 [facility] Glucose [Mass/Vol] 74 mg/dL 74 - 106 mg/dL [facility] Interpretation and review of laboratory results Abnormal [facility] Potassium [Moles/Vol] 3.6 mmol/L 3.5 - 5.1 mmol/L [facility] Sodium [Moles/Vol] 136 mmol/L 136 - 145 mmol/L [facility] EGFR-NON AF PUERTO RICAN 36 Low >=60 mL/min/1.73 m 2 [facility] Urea nitrogen [Mass/Vol] 36 mg/dL High 7.0 - 18.0 mg/dL [facility] Urea nitrogen/Creatini ne [Mass ratio] 25.4 mg/mg [facility] XR chest 2V*on 04-29-2024 XR chest 2V* [facility] Main [place] [address] [place] [address] XRay Report Signed Patient: Luma Ribeiro MR#: [id number] : 1945 Acct:[id number] Age/Sex: 78 / F ADM Date: 04/29/24 Loc: XDUCLY Room: Type: [facility] 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 APRN Copies to: [...] R Christopher M.D.04/29/2024 4:00 PM Dictation Location: [place] [address] Transcribed By: [facility] 04/29/24 1600 Dictated By: Jose R Christopher DO 04/29/24 1559 Signed By: 04/29/24 1600 Normal [facility] XR CHEST 2 VIEWSon 4 [...] de hand and wrist EMG 1 Extremeityon [facility] NVC 7-8 Nerveson 03-07-2024 [facility] Established Visit (Orthopaed ic Surgery)on 10-04-2022 Established [...] Complaint RT shoulder Ongoing issue 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 Distal pulses and sensation are intact. Limited forward flexion to about 25 degrees lateral abduction to about 15 unable to perform any external rotation but internal he can get to the small of her back. Her exam does not allow for much of a true Neer's Shelby or Sorrento's test. Diagnostics: See dictated report from today, previous outside CT scan report of the humerus reviewed, and is available in the [facility] chart. 1 Procedure: None Assessment: Chronic [...] the patient's CT scan report reviewed in [facility] chart Other 1 than the anterior [...] Radiologyon 10-04-2022 XR Shoulder 2 Views Normal [facility] Work Phone: SHOULDER, CMPLT, MIN 2 VIEWS on 10-04-2022 SHOULDER, CMPLT, MIN 2 VIEWS Patient Name: LUMA RIBEIRO STUDY: SHOULDER, CMPLT, MIN 2 VIEWS; Right; 10/04/2022 1:49 pm INDICATION: pain M25.519: Shoulder pain. ACCESSION NUMBER(S): [id number] ORDERING CLINICIAN: TANIYA CANCHOLA FINDINGS: Multiple views [...] signed by: TANIYA CANCHOLA MD Normal [facility] ([place], [place]) CT HUMERUS RIGHT W/O CONTRAS Ton 09-12-2022 [...] by Pernell Wiley on 09/12/2022 1127 Normal [facility] [employer] Collections Representative XR Chest 2 Views*on 09-13-19 23 XR [...] by Pernell Wiley on 09/12/2022 1101 Normal [facility] [employer] And Collections Representative XR CHEST 2 Von 09-05-2022 XR CHEST [...] by: ISAEL HANSEN Date: 2022-09-05 15:11 Normal [facility] XR KUB 1 VIEWon 09-05-2022 XR KUB [...] ISAEL HANSEN Date: 2022-09-05 15:10 Normal [facility] AMYLASEon 09-03-2022 Amylase [Catalytic activity/Vol] 34 U/L Normal 25-115 [facility] Comment on above: Performed By: #### L IPA, CMP, CMADM, BNP, GRACIELA #### [facility] [address] [place] [address] [address] Yonny Meza BNPon 09-03-2022 Natriuretic peptide B (Bld) [Mass/Vol] 241.0 pg/mL Normal <=1,800.0 [facility] Comment on above: Performed By: #### L IPA, CMP, CMADM, BNP, GRACIELA #### [facility] [address] [place] [address] [address] Yonny Meza CARDIAC SRINIVASA ADMITon 023 CK [Catalytic activity/Vol] 154 U/L Normal 26-192 [facility] Comment on above: Performed By: #### L IPA, CMP, CMADM, BNP, GRACIELA #### [facility] [address] [place] [address] [address] Yonny Meza CK.MB [Mass/Vol] 1.42 ng/mL Normal <=3.60 [facility] Comment on above: Performed By: #### L IPA, CMP, CMADM, BNP, GRACIELA #### [facility] [address] [address] [address] Yonny Meza HSTROP 13.9 pg/mL Normal 4.0-51.3 [facility] Comment on above: Result Comment: CUT- OFF POINTS HAVE BEEN ESTABLISHED BASED ON THE FOURTH UNIVERSAL DEFINITIONS OF MYOCARDIAL INFARCTION. THE UPPER REFERENCE LIMIT (URL) OF TROPONIN, DEFINED THE 99TH PERCENTILE OF cTnI DISTRIBUTION IN A REFERENCE POPULATION, HAS BEEN CONFIRMED THE DECISION THRESHOLD FOR VA DIAGNOSIS. Performed By: #### L IPA, CMP, CMADM, BNP, GRACIELA #### [facility] [address] [place] [address] Dr. Yonny Meza DARION 63 ng/mL Normal 9-82 [facility] Comment on above: Performed By: #### L IPA, CMP, CMADM, BNP, GRACIELA #### [facility] [address] [place] [address] [address] Yonny Meza CBC AUTO DIFFon 09-03-2022 BASO # 0.0 103/ul Normal 0.0-0.1 [facility] Comment on above: Performed By: #### L IPA, CMP, CMADM, BNP, GRACIELA #### [facility] [address] [place] [address] Dr. Yonny Meza Basophils/100 WBC (Bld) 0.4 % Normal 0.2-2.0 [facility] Comment on above: Performed By: #### L IPA, CMP, CMADM, BNP, GRACIELA #### [facility] [address] [place] [address] Dr. Yonny Meza EO # 0.1 103/ul Normal 0.0-0.7 [facility] Comment on above: Performed By: #### L IPA, CMP, CMADM, BNP, GRACIELA #### [facility] [address] [place] [address] Dr. Yonny Meza Eosinophils/100 WBC (Bld) 1.6 % Normal 0.9-7.0 [facility] Comment on above: Performed By: #### L IPA, CMP, CMADM, BNP, GRACIELA #### [facility] [address] [place] [address] Dr. Yonny Meza Erythrocyte distribution width (RBC) [Ratio] 12.6 % Normal 11.0-15.0 [facility] Comment on above: Performed By: #### L IPA, CMP, CMADM, BNP, GRACIELA #### [facility] [address] [place] [address] Dr. Yonny Meza Hematocrit (Bld) [Volume fraction] 38.9 % Normal 36.0-48.0 [facility] Comment on above: Performed By: #### L IPA, CMP, CMADM, BNP, GRACIELA #### [facility] [address] [place] [address] Dr. Yonny Meza Hemoglobin (Bld) [Mass/Vol] 13.0 g/dL Normal 12.0-16.0 [facility] Comment on above: Performed By: #### L IPA, CMP, CMADM, BNP, GRACIELA #### [facility] [address] [place] [address] Dr. Yonny Meza IG # 0.02 10e3/ul Normal 0.00-0.03 [facility] Comment on above: Performed By: #### L IPA, CMP, CMADM, BNP, GRACIELA #### [facility] [address] [place] [address] Dr. Yonny Meza IG % 0.3 % Normal 0.0-0.5 [facility] Comment on above: Performed By: #### L IPA, CMP, CMADM, BNP, GRACIELA #### [facility] [address] [place] [address] Dr. Yonny Meza LYMPH # 2.0 103/ul Normal 1.2-3.8 [facility] Comment on above: Performed By: #### L IPA, CMP, CMADM, BNP, GRACIELA #### [facility] [address] [place] [address] Dr. Yonny Meza Lymphocytes/100 WBC (Bld) 25.3 % Normal 20.5-60.0 [facility] Comment on above: Performed By: #### L IPA, CMP, CMADM, BNP, GRACIELA #### [facility] [address] [place] [address] Dr. Yonny Meza MANUAL DIFF REQ NO Normal [facility] Comment on above: Performed By: #### L IPA, CMP, CMADM, BNP, GRACIELA #### [facility] [address] [place] [address] Dr. Yonny Meza MCH (RBC) [Entitic mass] 31.8 pg Normal 26.7-34.0 [facility] Comment on above: Performed By: #### L IPA, CMP, CMADM, BNP, GRACIELA #### [facility] [address] [place] [address] Dr. Yonny Meza MCHC (RBC) [Mass/Vol] 33.4 g/dL Normal 29.9-35.2 [facility] Comment on above: Performed By: #### L IPA, CMP, CMADM, BNP, GRACIELA #### [facility] [address] [place] [address] Dr. Yonny Meza MCV (RBC) [Entitic vol] 95.1 fL Normal 81.0-99.0 [facility] Comment on above: Performed By: #### L IPA, CMP, CMADM, BNP, GRACIELA #### [facility] [address] [place] [address] Dr. Yonny Meza MONO # 0.9 103/ul Critically high 0.3-0.8 [facility] Comment on above: Performed By: #### L IPA, CMP, CMADM, BNP, GRACIELA #### [facility] [address] [place] [address] Dr. Yonny Meza Monocytes/100 WBC (Bld) 11.5 % Normal 1.7-12.0 [facility] Comment on above: Performed By: #### L IPA, CMP, CMADM, BNP, GRACIELA #### [facility] [address] [place] [address] [address] Yonny Meza NEUT # 4.8 103/ul Normal 1.4-6.5 [facility] Comment on above: Performed By: #### L IPA, CMP, CMADM, BNP, GRACIELA #### [facility] [address] [place] [address] Dr. Yonny Meza Neutrophils/100 WBC (Bld) 60.9 % Normal 43.0-75.0 [facility] Comment on above: Performed By: #### L IPA, CMP, CMADM, BNP, GRACIELA #### [facility] [address] [place] [address] Dr. Yonny Meza Platelet mean volume (Bld) [Entitic vol] 10.1 fL Normal 9.5-13.5 [facility] Comment on above: Performed By: #### L IPA, CMP, CMADM, BNP, GRACIELA #### [facility] [address] [place] [address] Dr. Yonny Meza PLT 252 103/ul Normal 150-450 [facility] Comment on above: Performed By: #### L IPA, CMP, CMADM, BNP, GRACIELA #### [facility] [address] [place] [address] Dr. Yonny Meza RBC 4.09 106/ul Critically low 4.20-5.40 [facility] Comment on above: Performed By: #### L IPA, CMP, CMADM, BNP, GRACIELA #### [facility] [address] [place] [address] Dr. Yonny Meza WBC 7.9 103/ul Normal 4.0-11.0 [facility] Comment on above: Performed By: #### L IPA, CMP, CMADM, BNP, GRACIELA #### [facility] [address] [place] [address] ABD/PELVIS WO CONon [...] by: HATTIE [place] Date: 2022-09-03 01:11 Normal [facility] ER URINE PROFILEon 3 Bilirubin Ql (U) Negative Normal NEGATIVE [facility] Comment on above: Performed By: #### L IPA, CMP, CMADM, BNP, GRACIELA #### [facility] [address] [address] [address] Yonny Meza Clarity (U) CLEAR Normal CLEAR [facility] Comment on above: Performed By: #### L IPA, CMP, CMADM, BNP, GRACIELA #### [facility] [address] [address] [address] Yonny Meza Color (U) LT. YELLOW Normal YELLOW [facility] Comment on above: Performed By: #### L IPA, CMP, CMADM, BNP, GRACIELA #### [facility] [address] [address] [address] Yonny Meza ERUMAURAD A micrscopic examina tion will be performed if indicated. Normal [facility] Comment on above: Performed By: #### L IPA, CMP, CMADM, BNP, GRACIELA #### [facility] [address] [address] [address] Yonny Meza Glucose Ql (U) Negative Normal NEGATIVE [facility] Comment on above: Performed By: #### L IPA, CMP, CMADM, BNP, GRACIELA #### [facility] [address] [address] [address] Yonny Meza Hemoglobin Ql (U) Negative Normal NEGATIVE [facility] Comment on above: Performed By: #### L IPA, CMP, CMADM, BNP, GRACIELA #### [facility] [address] [address] [address] Yonny Meza Ketones Ql (U) Negative Normal NEGATIVE [facility] Comment on above: Performed By: #### L IPA, CMP, CMADM, BNP, GRACIELA #### [facility] [address] [address] [address] Yonny Meza LEUKOCYTES Negative Normal NEGATIVE [facility] Comment on above: Performed By: #### L IPA, CMP, CMADM, BNP, GRACIELA #### [facility] [address] [address] [address] Yonny Meza Nitrite Ql (U) Negative Normal NEGATIVE [facility] Comment on above: Performed By: #### L IPA, CMP, CMADM, BNP, GRACIELA #### [facility] [address] [place] [address] Dr. Yonny Meza pH (U) 7.0 [pH] Normal 5-9 [facility] Comment on above: Performed By: #### L IPA, CMP, CMADM, BNP, GRACIELA #### [facility] [address] [place] [address] Dr. Yonny Meza SPEC GRAVITY 1.015 Normal 1.005-<=1.0 25 [facility] Comment on above: Performed By: #### L IPA, CMP, CMADM, BNP, GRACIELA #### [facility] [address] [place] [address] Dr. Yonny Meza UA PROTEIN Negative Normal NEGATIVE/ TRACE [facility] Comment on above: Performed By: #### L IPA, CMP, CMADM, BNP, GRACIELA #### [facility] [address] [place] [address] Dr. Yonny Meza UR MICRO IND NOT INDICATED Normal [facility] Comment on above: Performed By: #### L IPA, CMP, CMADM, BNP, GRACIELA #### [facility] [address] [place] [address] Dr. Yonny Meza Urobilinogen Qn (U) 0.2 {Arnaud'U}/dL Normal 0.2 - 1.0 [facility] Comment on above: Performed By: #### L IPA, CMP, CMADM, BNP, GRACIELA #### [facility] [address] [place] [address] Dr. Yonny Meza LACTATE/LACTIC ACIDon 2022 Lactate [Moles/Vol] 2.3 mmol/L Critically high 0.4-2.0 [facility] Comment on above: Performed By: #### L ACT #### [facility] [address] [place] [address] Dr. Yonny Meza Lactate [Moles/Vol] 2.2 mmol/L Critically high 0.4-2.0 [facility] Comment on above: Performed By: #### L IPA, CMP, CMADM, BNP, GRACIELA #### [facility] [address] [place] [address] Dr. Yonny Meza LIPASEon 09-03-2022 Lipase [Catalytic activity/Vol] 88.0 U/L Normal 73.0-393.0 [facility] Comment on above: Performed By: #### L IPA, CMP, CMADM, BNP, GRACIELA #### [facility] [address] [place] [address] Dr. Yonny Meza PROF 14(COMP METB)on 023 Albumin [Mass/Vol] 3.3 g/dL Critically low 3.4-5.0 [facility] Comment on above: Performed By: #### L IPA, CMP, CMADM, BNP, GRACIELA #### [facility] [address] [place] [address] Dr. Yonny Meza Albumin/Globulin [Mass ratio] 0.9 {ratio} Normal [facility] Comment on above: Performed By: #### L IPA, CMP, CMADM, BNP, GRACIELA #### [facility] [address] [place] [address] Dr. Yonny Meza ALP [Catalytic activity/Vol] 122 U/L Critically high 46-116 [facility] Comment on above: Performed By: #### L IPA, CMP, CMADM, BNP, GRACIELA #### [facility] [address] [place] [address] Dr. Yonny Mzea ALT [Catalytic activity/Vol] 21 U/L Normal 14-59 [facility] Comment on above: Performed By: #### L IPA, CMP, CMADM, BNP, GRACIELA #### [facility] [address] [place] [address] Dr. Yonny Meza Anion gap [Moles/Vol] 12.4 mmol/L Normal [facility] Comment on above: Performed By: #### L IPA, CMP, CMADM, BNP, GRACIELA #### [facility] [address] [place] [address] Dr. Yonny Meza AST [Catalytic activity/Vol] 24 U/L Normal 15-37 [facility] Comment on above: Performed By: #### L IPA, CMP, CMADM, BNP, GRACIELA #### [facility] [address] [address] [address] Yonny Meza Bilirubin [Mass/Vol] 0.4 mg/dL Normal 0.2-1.0 [facility] Comment on above: Performed By: #### L IPA, CMP, CMADM, BNP, GRACIELA #### [facility] [address] [address] [address] Yonny Meza Calcium [Mass/Vol] 8.7 mg/dL Normal 8.5-10.1 [facility] Comment on above: Performed By: #### L IPA, CMP, CMADM, BNP, GRACIELA #### [facility] [address] [address] [address] Yonny Meza Chloride [Moles/Vol] 105 mmol/L Normal 98-107 [facility] Comment on above: Performed By: #### L IPA, CMP, CMADM, BNP, GRACIELA #### [facility] [address] [address] [address] Yonny Meza CO2 [Moles/Vol] 28.0 mmol/L Normal 21.0-32.0 [facility] Comment on above: Performed By: #### L IPA, CMP, CMADM, BNP, GRACIELA #### [facility] [address] [address] [address] Yonny Meza Creatinine [Mass/Vol] 1.11 mg/dL Critically high 0.55-1.02 [facility] Comment on above: Performed By: #### L IPA, CMP, CMADM, BNP, GRACIELA #### [facility] [address] [address] [address] Yonny Meza EGFR-AF PUERTO RICAN 58 mL/min/1.73m2 Critically low >=60 [facility] Comment on above: Performed By: #### L IPA, CMP, CMADM, BNP, GRACIELA #### [facility] [address] [address] [address] Yonny Meza EGFR-NON AF PUERTO RICAN 48 mL/min/1.73m2 Critically low >=60 [facility] Comment on above: Performed By: #### L IPA, CMP, CMADM, BNP, GRACIELA #### [facility] [address] [address] [address] Yonny Meza Globulin (S) [Mass/Vol] 3.7 g/dL Normal [facility] Comment on above: Performed By: #### L IPA, CMP, CMADM, BNP, GRACIELA #### [facility] [address] [address] [address] Yonny Meza Glucose [Mass/Vol] 152 mg/dL Critically high 74-106 [facility] Comment on above: Performed By: #### L IPA, CMP, CMADM, BNP, GRACIELA #### [facility] [address] [place] [address] Dr. Yonny Meza Potassium [Moles/Vol] 3.4 mmol/L Critically low 3.5-5.1 [facility] Comment on above: Performed By: #### L IPA, CMP, CMADM, BNP, GRACIELA #### [facility] [address] [place] [address] Dr. Yonny Meza Protein [Mass/Vol] 7.0 g/dL Normal 6.4-8.2 [facility] Comment on above: Performed By: #### L IPA, CMP, CMADM, BNP, GRACIELA #### [facility] [address] [place] [address] Dr. Yonny Meza Sodium [Moles/Vol] 142 mmol/L Normal 136-145 [facility] Comment on above: Performed By: #### L IPA, CMP, CMADM, BNP, GRACIELA #### [facility] [address] [place] [address] Dr. Yonny Meza Urea nitrogen [Mass/Vol] 14.0 mg/dL Normal 7.0-18.0 [facility] Comment on above: Performed By: #### L IPA, CMP, CMADM, BNP, GRACIELA #### [facility] [address] [place] [address] Dr. Yonny Meza Urea nitrogen/Creatini ne [Mass ratio] 12.6 mg/mg Normal [facility] Comment on above: Performed By: #### L IPA, CMP, CMADM, BNP, GRACIELA #### [facility] [address] [place] [address] Dr. Yonny Meza PROTIMEon 09-03-2022 INR Coag (PPP) [Relative time] 1.05 {INR} Normal [facility] Comment on above: Performed By: #### L IPA, CMP, CMADM, BNP, GRACIELA #### [facility] [address] [place] [address] Dr. Yonny Meza INR GUIDELINES SEE BELOW Normal [facility] Comment on above: Result Comment: ASCENCION RED INR: 2.0 - 3.0 CONDITIONS NOT LISTED BELOW 2.5 - 3.5 FOR PROSTHETIC HEART VALVE REPLACEMENT 2.5 - 3.5 RECURRENT THROMBOSIS Performed By: #### L IPA, CMP, CMADM, BNP, GRACIELA #### [facility] [facility] [address] [place] [address] Dr. Yonny Meza PT Coag (PPP) [Time] 11.1 s Normal 9.0-11.6 [facility] Comment on above: Performed By: #### L IPA, CMP, CMADM, BNP, GRACIELA #### [facility] [address] [place] [address] Dr. Yonny Meza PTTon 09-03-2022 aPTT Coag (Bld) [Time] 26.7 s Normal 22.3-36.2 [facility] Comment on above: Performed By: #### L IPA, CMP, CMADM, BNP, GRACIELA #### [facility] [address] [place] [address] Dr. Yonny Meza XR CHEST 1 Von [...] by: HATTIE [place] Date: 2022-09-03 00:08 Normal [facility] MAMM SCREEN 3D RON CADon 06-06-2022 MG MAMM SCREEN 3D RON CAD Patient: LUMA RIBEIRO Exam Date: 06/06/2022 : 1945 Gender:F Ordering : DR ROC STEELE M.D. Admission #: [id number] Family : Order #: [id number] CLICK HERE TO VIEW EXAM RADIOLOGY REPORT [...] breast cancer at age 61. LOCATION: [facility] BREAST COMPOSITION: Scattered areas fibroglandular density. FINDINGS: [...] Caballero MD on 06/07/2022 at 08:09 Normal [facility] No Panel Informationon 12-16 Please click on the link to view the study images Normal -[facility] Work Phone: Radiologyon 12-03-2020 XR Pelvis and Hip - left 2 Views Normal -[facility] Work Phone: MRI Humerus w/wo Contraston 11-20-2020 MRI Humerus w/wo Contrast Normal -[facility] Work Phone: Otheron 02-13-2020 Interpreted by: BONIFACIO WARE 15:34MRN: [id number] Name: LUMA RIBEIRO STUDY:HIP, UNILATERAL W/PELVIS WHEN PERFORMED 2-3 VIEWS; Right;02/13/2020 1:58 pm INDICATION:pain. 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 No acute bony abnormality orperiprosthetic fracture appreciated. Electronically signed by: TASIA BIRD 02/13/20 15:34 Normal [facility] Work Phone: Complete Blood Count + [facility] 01-30-2020 Basophils (Bld) [#/Vol] 0.04 {x10E9/L} See Below [facility] Work Phone: Comment on above: Reference Range: 0.0 0 - 0.10 Basophils/100 WBC (Bld) 0.2 % 0.0 - 2.0 [facility] [employer] Work Phone: Eosinophils (Bld) [#/Vol] 0.01 {x10E9/L} See Below [facility] Work Phone: Comment on above: Reference Range: 0.0 0 - 0.40 Eosinophils/100 WBC (Bld) 0.1 % 0.0 - 6.0 [facility] [employer] Work Phone: Erythrocyte distribution width (RBC) [Ratio] 13.1 % See Below [facility] Work Phone: Comment on above: Reference Range: 11. 5 - 14.5 Hematocrit (Bld) [Volume fraction] 34.8 % below low threshold See Below [facility] [employer] Work Phone: Comment on above: Reference Range: 36. 0 - 46.0 Hemoglobin (Bld) [Mass/Vol] 11.3 g/dL below low threshold See Below [facility] [place] Work Phone: [phone] Comment on above: Reference Range: 12. 0 - 16.0 Lymphocytes (Bld) [#/Vol] 2.21 {x10E9/L} See Below [facility] [place] Work Phone: [phone] Comment on above: Reference Range: 0.8 0 - 3.00 Lymphocytes/100 WBC (Bld) 12.5 % See Below [facility] [place] Work Phone: [phone] Comment on above: Reference Range: 13. 0 - 44.0 MCHC (RBC) [Mass/Vol] 32.5 g/dL See Below [facility] [place] Work Phone: [phone] Comment on above: Reference Range: 32. 0 - 36.0 MCV (RBC) [Entitic vol] 99 fL 80 - 100 [facility] Work Phone: [phone] Monocytes (Bld) [#/Vol] 1.82 {x10E9/L} above high threshold See Below [facility] [place] Work Phone: [phone] Comment on above: Reference Range: 0.0 5 - 0.80 Monocytes/100 WBC (Bld) 10.3 % 2.0 - 10.0 [facility] [place] Work Phone: [phone] Neutrophils/100 WBC (Bld) 76.3 % See Below [facility] [place] Work Phone: [phone] Comment on above: Reference Range: 40. 0 - 80.0 Platelets (Bld) [#/Vol] 234 {x10E9/L} 150 - 450 -[facility] [place] Work Phone: [phone] RBC (Bld) [#/Vol] 3.52 {x10E12/L} below low threshold See Below [facility] [place] Work Phone: [phone] Comment on above: Reference Range: 4.0 0 - 5.20 WBC (Bld) [#/Vol] 17.7 {x10E9/L} above high threshold 4.4 - 11.3 -[place] [facility] [employer] Work Phone: Complete Blood Count + Differential 0.6 % 0.0 - 0.9 [facility] [employer] Work Phone: Comment on above: Immature Granulocyte Count (IG) includes promyelocytes, myelocytes and metamyelocytes but does not include bands. Percent differential counts (%) should be interpreted in the context of the absolute cell counts (cells/L). Complete Blood Count + Differential 13.52 {x10E9/L} above high threshold See Below [facility] [employer] Work Phone: Comment on above: Reference Range: 1.6 0 - 5.50 Metabolic Panelon 01-30-2020 Anion gap [Moles/Vol] 8 mmol/L below low threshold 10 - 20 -[place] [facility] [employer] Work Phone: Calcium [Mass/Vol] 8.8 mg/dL 8.6 - 10.3 -[place] [facility] [employer] Work Phone: [phone] Chloride [Moles/Vol] 101 mmol/L 98 - 107 -[facility] [facility] [employer] Work Phone: CO2 [Moles/Vol] 32 mmol/L 21 - 32 -[place] [facility] [employer] Work Phone: [phone] Creatinine [Mass/Vol] 1.00 mg/dL See Below [facility] [employer] Work Phone: [phone] Comment on above: Reference Range: 0.5 0 - 1.05 Glucose [Mass/Vol] 128 mg/dL above high threshold 74 - 99 [facility] [employer] Work Phone: [phone] Potassium [Moles/Vol] 4.2 mmol/L 3.5 - 5.3 -[place] [facility] [employer] Work Phone: [phone] Sodium [Moles/Vol] 137 mmol/L 136 - 145 [facility] Work Phone: Urea nitrogen [Mass/Vol] 14 mg/dL 6 - 23 [facility] Work Phone: Otheron 01-30-2020 65 {mL/min/1.73m2} >60 [facility] Work Phone: Comment on above: CALCULATIONS OF TONE MATED GFR ARE PERFORMED USING THE MDRD STUDY EQUATION FOR THE IDMS-TRACEABLE CREATININE METHODS. CLIN CHEM 2007;53:766-72 54 {mL/min/1.73m2} Abnormal >[address] [facility] Work Phone: Otheron 01-29-2020 Interpreted by: ZTVLLC51/01/20 15:21MRN: [id number] Name: LUMA RIBEIRO STUDY:HIP, UNILATERAL W/PELVIS WHEN PERFORMED 2-3 VIEWS; 01/29/2020 12:25 pm INDICATION:s/p right ROSSANA. COMPARISON:01/16/2020 ORDERING CLINICIAN:TASIA BIRD FINDINGS:Pelvis and right hip, three views Interval right total hip arthroplasty noted without periprostheticfracture or lucency. There is no dislocation. IMPRESSION:Right total hip arthroplasty without immediate complicationsElectronically signed by: RAJIV 01/30/20 15:21 Normal [facility] Work Phone: XR Pelvis 1 or 2 views Please click on the link to view the study images Normal [facility] Work Phone: Coronavirus 2019 RNA by PCR, Screening Asymptomticon 01-27-2020 Coronavirus 2019 RNA by PCR, Screening Asymptomtic NOT DETECTED See Below [facility] Work Phone: Comment on above: SOURCE: Nasal, [...] make patient management decisions.Fact sheet for providers: https://www.fda.gov/media/097186/downloadFact sheet for patients: https://www.fda.gov/media/732705/downloadThis test has received FDA Emergency Use Authorization (EUA) and has been verified by [facility] ([facility]). This test is only authorized for the duration of time that circumstances exist to justify the authorization of the emergency use of in vitro diagnostic tests for the detection of SARS-CoV-2 virus and/or diagnosis of COVID-19 infection under section 564(b)(1) of the Act, 21 U.S.C. 360bbb-3(b)(1), unless the authorization is terminated or revoked sooner. [facility] is certified under CLIA-88 as qualified to perform high complexity testing. Testing is performed in the [facility] laboratories located at [address] [place] [address]. Activated Partial Thrombopla stin Timeon 01-20-2020 aPTT Coag (PPP) [Time] 29 {sec} 25 - 35 [facility] Work Phone: Comment on above: THE APTT IS NO LONGE R USED FOR MONITORING UNFRACTIONATED HEPARIN THERAPY. FOR MONITORING HEPARIN THERAPY, USE THE HEPARIN ASSAY. Complete Blood Count + Diffe rentialon 01-20-2020 Basophils (Bld) [#/Vol] 0.04 {x10E9/L} See Below [facility] Work Phone: Comment on above: Reference Range: 0.0 0 - 0.10 Basophils/100 WBC (Bld) 0.5 % 0.0 - 2.0 [facility] Work Phone: Eosinophils (Bld) [#/Vol] 0.09 {x10E9/L} See Below [facility] [place] Work Phone: [phone] Comment on above: Reference Range: 0.0 0 - 0.40 Eosinophils/100 WBC (Bld) 1.0 % 0.0 - 6.0 [facility] [place] Work Phone: [phone] Erythrocyte distribution width (RBC) [Ratio] 12.9 % See Below [facility] [place] Work Phone: [phone] Comment on above: Reference Range: 11. 5 - 14.5 Hematocrit (Bld) [Volume fraction] 44.6 % See Below [facility] Work Phone: [phone] Comment on above: Reference Range: 36. 0 - 46.0 Hemoglobin (Bld) [Mass/Vol] 14.5 g/dL See Below [facility] Work Phone: [phone] Comment on above: Reference Range: 12. 0 - 16.0 Lymphocytes (Bld) [#/Vol] 3.41 {x10E9/L} above high threshold See Below [facility] Work Phone: [phone] Comment on above: Reference Range: 0.8 0 - 3.00 Lymphocytes/100 WBC (Bld) 38.4 % See Below [facility] Work Phone: [phone] Comment on above: Reference Range: 13. 0 - 44.0 MCHC (RBC) [Mass/Vol] 32.5 g/dL See Below [facility] [place] Work Phone: [phone] Comment on above: Reference Range: 32. 0 - 36.0 MCV (RBC) [Entitic vol] 100 fL 80 - 100 [facility] [place] Work Phone: [phone] Monocytes (Bld) [#/Vol] 0.81 {x10E9/L} above high threshold See Below [facility] [place] Work Phone: Comment on above: Reference Range: 0.0 5 - 0.80 Monocytes/100 WBC (Bld) 9.1 % 2.0 - 10.0 [facility] Work Phone: Neutrophils (Bld) [#/Vol] 4.49 {x10E9/L} See Below [facility] Work Phone: Comment on above: Reference Range: 1.6 0 - 5.50 Neutrophils/100 WBC (Bld) 50.7 % See Below [facility] Work Phone: Comment on above: Reference Range: 40. 0 - 80.0 Platelets (Bld) [#/Vol] 261 {x10E9/L} 150 - 450 [facility] Work Phone: RBC (Bld) [#/Vol] 4.48 {x10E12/L} See Below [facility] Work Phone: Comment on above: Reference Range: 4.0 0 - 5.20 WBC (Bld) [#/Vol] 8.9 {x10E9/L} 4.4 - 11.3 [facility] Work Phone: Complete Blood Count + Differential 0.3 % 0.0 - 0.9 [facility] Work Phone: Comment on above: Immature Granulocyte Count (IG) includes promyelocytes, myelocytes and metamyelocytes but does not include bands. Percent differential counts (%) should be interpreted in the context of the absolute cell counts (cells/L). Fructosamine, Serumon 2019 Fructosamine [Moles/Vol] 265 umol/L 0-285 [facility] Work Phone: Comment on above: Published reference interval for apparently healthy subjectsbetween age 20 and 60 is 205 - 285 umol/L and in a poorlycontrolled diabetic population is 228 - 563 umol/L with amean of 396 umol/L. Hematologyon 01-20-2020 INR Coag (PPP) [Relative time] 1.1 {INR} 0.9 - 1.1 -[facility] Work Phone: PT Coag (PPP) [Time] 13.0 {sec} See Below [facility] Work Phone: Comment on above: Reference Range: 10. 1 - 13.3 Metabolic Panelon 01-20-2020 ALP [Catalytic activity/Vol] 100 U/L 33 - 136 -[facility] Work Phone: Anion gap [Moles/Vol] 13 mmol/L 10 - 20 -[facility] Work Phone: Bilirubin [Mass/Vol] 0.6 mg/dL 0.0 - 1.2 -[facility] Work Phone: Calcium [Mass/Vol] 9.7 mg/dL 8.6 - 10.3 -[facility] Work Phone: Chloride [Moles/Vol] 101 mmol/L 98 - 107 -[facility] [place] Work Phone: CO2 [Moles/Vol] 32 mmol/L 21 - 32 -[facility] [place] Work Phone: Creatinine [Mass/Vol] 1.01 mg/dL See Below [facility] Work Phone: Comment on above: Reference Range: 0.5 0 - 1.05 Glucose [Mass/Vol] 88 mg/dL 74 - 99 -[facility] [place] Work Phone: Potassium [Moles/Vol] 3.9 mmol/L 3.5 - 5.3 -[facility] [facility] [place] Work Phone: Protein [Mass/Vol] 7.6 g/dL 6.4 - 8.2 -[facility] [place] Work Phone: [phone] Sodium [Moles/Vol] 142 mmol/L 136 - 145 -[facility] [place] Work Phone: Urea nitrogen [Mass/Vol] 15 mg/dL 6 - 23 -[facility] [place] Work Phone: Otheron 01-20-2020 100 1 -[facility] [place] Work Phone: [phone] -[facility] [place] Work Phone: [phone] -[facility] [place] Work Phone: [phone] -[facility] [place] Work Phone: -[phone] [facility] [place] Work Phone: [phone] [facility] [place] Work Phone: [phone] Sinus rhythm with oc casional premature ventricular complexes -[facility] [place] Work Phone: [phone] [facility] [place] Work Phone: [phone] [email or web address] 1:8080/mu sescripts/museweb.dll?Retriev eTestByDateTime?GkltrpxDB=[email or web address] 083368&Date=20-01-2020&Time=1 4%3a54%3a12%3a00&TestType=ECG &Site=11&OutputType=PDF&Ext=P DF -[facility] [place] Work Phone: [phone] -[facility] [place] Work Phone: [phone] [facility] [place] Work Phone: [phone] -[facility] [place] Work Phone: [phone] -[facility] [place] Work Phone: [phone] -[facility] [employer] Work Phone: [phone] -[facility] [employer] Work Phone: [phone] Albumin BCP dye [Mass/Vol] 4.4 g/dL 3.4 - 5.0 -[facility] [employer] Work Phone: [phone] ALT With P-5'-P [Catalytic activity/Vol] 16 U/L 7 - 45 -[facility] [employer] Work Phone: [phone] Comment on above: Patients treated wit h Sulfasalazine may generate falsely decreased results for ALT. AST With P-5'-P [Catalytic activity/Vol] 23 U/L 9 - 39 -[facility] [employer] Work Phone: {mL/min/1.73m2} >[address] [facility] [employer] Work Phone: [phone] Comment on above: CALCULATIONS OF TONE MATED GFR ARE PERFORMED USING THE MDRD STUDY EQUATION FOR THE IDMS-TRACEABLE CREATININE METHODS. CLIN CHEM 2007;53:766-72 54 {mL/min/1.73m2} Abnormal >[address] [facility] [employer] Phone: Urinalysison 01-20-2020 Appearance (U) HAZY CLEAR -[facility] [employer] Work Phone: [phone] (U) YELLOW See Below -[facility] [employer] Work Phone: [phone] Comment on above: Reference Range: STR AW,YELLOW Glucose Ql (U) Negative NEGATIVE -[facility] [employer] Work Phone: [phone] Ketones Ql (U) Negative NEGATIVE -[facility] [employer] Work Phone: [phone] Leukocyte esterase Test strip Ql (U) Negative NEGATIVE [facility] [employer] Work Phone: [phone] pH (U) 7.0 [pH] 5.0 - 8.0 -[facility] Work Phone: Protein (U) [Mass/Vol] Negative NEGATIVE [facility] Work Phone: RBC (U) [#/Vol] Negative NEGATIVE [facility] [employer] Phone: Specific gravity (U) [Rel density] 1.019 See Below [facility] Work Phone: Comment on above: Reference Range: 1.0 05 - 1.035 Urinalysis Negative NEGATIVE [facility] [employer] Phone: Urinalysis 2.0 mg/dL above high threshold 0.0 - 1.9 [facility] Work Phone: Comment on above: Due to [...] Otheron 01-16-2020 Interpreted by: AGNES ALVARADO01/16/20 13:42MRN: [id number] Name: LUMA RIBEIRO STUDY:HIP, UNILATERAL W/PELVIS WHEN PERFORMED 2-3 VIEWS; Right; 01/16/20201:39 pm INDICATION:pain. ORDERING CLINICIAN:HARSHAL ALVARADO FINDINGS:AP lateral right hip x-ray shows end-stage usugpevxkxnougcvst-xk-eofh arthrosis noted. 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 Electronically signed by: HARSHAL ALVARADO 01/16/20 13:42 Normal [facility] Work Phone: Vital Signs Date Time Vital Sign Value Performing Clinician Facility 05-15-2024 11:32-0500 Body height 157.5 cm Kamila Laurens DISSOLVER OPERATOR Work Phone: [facility] 05-15-2024 11:32-0500 Body mass index (BMI) [Ratio] 48.54 kg/m2 Kamila Laurens DISSOLVER OPERATOR Work Phone: [facility] 05-15-2024 11:32-0500 Body weight 120.39 kg Kamila Bigg DISSOLVER OPERATOR Work Phone: [facility] 05-15-2024 11:32-0500 Diastolic blood pressure 76 mm[Hg] Kamila Bigg DISSOLVER OPERATOR Work Phone: [facility] 05-15-2024 11:32-0500 Heart rate 97 /min Kamila Bigg DISSOLVER OPERATOR Work Phone: [facility] 05-15-2024 11:32-0500 Respiratory rate 18 /min Kamila Bigg DISSOLVER OPERATOR Work Phone: [facility] 05-15-2024 11:32-0500 SaO2% (BldA) [Mass fraction] 98 % Kamila Bigg DISSOLVER OPERATOR Work Phone: [facility] 05-15-2024 11:32-0500 Systolic blood pressure 126 mm[Hg] Kamila Laurens DISSOLVER OPERATOR Work Phone: [facility] 05-07-2024 10:53-0500 Body height 157.5 cm Kamila Bigg DISSOLVER OPERATOR Work Phone: [facility] 05-07-2024 10:53-0500 Body mass index (BMI) [Ratio] 48.87 kg/m2 Kamila Laurens DISSOLVER OPERATOR Work Phone: [facility] 05-07-2024 10:53-0500 Body weight 121.2 kg Kamila Laurens DISSOLVER OPERATOR Work Phone: [facility] 05-07-2024 10:53-0500 Diastolic blood pressure 82 mm[Hg] Kamila Bigg DISSOLVER OPERATOR Work Phone: [facility] 05-07-2024 10:53-0500 Heart rate 88 /min Kamila Laurens DISSOLVER OPERATOR Work Phone: [facility] 05-07-2024 10:53-0500 Respiratory rate 18 /min Kamila Laurens DISSOLVER OPERATOR Work Phone: [facility] 05-07-2024 10:53-0500 SaO2% (BldA) [Mass fraction] 95 % Kamila Bigg DISSOLVER OPERATOR Work Phone: [facility] 05-07-2024 10:53-0500 Systolic blood pressure 130 mm[Hg] Kamila Laurens DISSOLVER OPERATOR Work Phone: [facility] 04-03-2024 08:32-0500 Body height 157.5 cm Kamila Bigg DISSOLVER OPERATOR Work Phone: [facility] 04-03-2024 08:32-0500 Body mass index (BMI) [Ratio] 49.6 kg/m2 Kamila Laurens DISSOLVER OPERATOR Work Phone: [facility] 04-03-2024 08:32-0500 Body weight 123.02 kg Kamila Laurens DISSOLVER OPERATOR Work Phone: [facility] 04-03-2024 08:32-0500 Diastolic blood pressure 80 mm[Hg] Kamila Laurens DISSOLVER OPERATOR Work Phone: [facility] 04-03-2024 08:32-0500 Heart rate 74 /min Kamila Laurens DISSOLVER OPERATOR Work Phone: [facility] 04-03-2024 08:32-0500 Respiratory rate 17 /min Kamila Bigg DISSOLVER OPERATOR Work Phone: [facility] 04-03-2024 08:32-0500 SaO2% (BldA) [Mass fraction] 98 % Kamila Laurens DISSOLVER OPERATOR Work Phone: [facility] 04-03-2024 08:32-0500 Systolic blood pressure 126 mm[Hg] Kamila Bigg DISSOLVER OPERATOR Work Phone: [facility] 03-05-2024 11:19-0500 Body height 157.5 cm Kamila Laurens DISSOLVER OPERATOR Work Phone: [facility] 03-05-2024 11:19-0500 Body mass index (BMI) [Ratio] 50.85 kg/m2 Kamila Laurens DISSOLVER OPERATOR Work Phone: [facility] 03-05-2024 11:19-0500 Body weight 126.1 kg Kamila Castillo DISSOLVER OPERATOR Work Phone: [facility] 03-05-2024 11:19-0500 Diastolic blood pressure 76 mm[Hg] Kamila Castillo DISSOLVER OPERATOR Work Phone: [facility] 03-05-2024 11:19-0500 Heart rate 102 /min Kamila Castillo DISSOLVER OPERATOR Work Phone: [facility] 03-05-2024 11:19-0500 SaO2% (BldA) [Mass fraction] 98 % Kamila Castillo DISSOLVER OPERATOR Work Phone: [facility] 03-05-2024 11:19-0500 Systolic blood pressure 134 mm[Hg] Kamila Castillo DISSOLVER OPERATOR Work Phone: [facility] 02-22-2024 14:09-0400 Body height 157.5 cm Alex Tam DPM Work Phone: [facility] 02-22-2024 14:09-0400 Body mass index (BMI) [Ratio] 50.85 kg/m2 Alex Tam DPM Work Phone: [facility] 02-22-2024 14:09-0400 Body weight 126.1 kg Alex Tam DPM Work Phone: [facility] 02-22-2024 14:09-0400 Diastolic blood pressure 80 mm[Hg] Alex Tam DPM Work Phone: [facility] 02-22-2024 14:09-0400 Heart rate 82 /min Alex Tam DPM Work Phone: [facility] 02-22-2024 14:09-0400 Systolic blood pressure 126 mm[Hg] Alex Tam DPM Work Phone: [facility] 06-15-2023 14:42-0500 Body height 157.5 cm Alex Tam DPM Work Phone: [facility] 06-15-2023 14:42-0500 Body mass index (BMI) [Ratio] 50.48 kg/m2 Alex Tam DPM Work Phone: [facility] 06-15-2023 14:42-0500 Body weight 125.19 kg Alex Tam DPM Work Phone: [facility] 06-15-2023 14:42-0500 Diastolic blood pressure 82 mm[Hg] Alex Tam DPM Work Phone: [facility] 06-15-2023 14:42-0500 Heart rate 84 /min Alex Tam DPM Work Phone: [facility] 06-15-2023 14:42-0500 Systolic blood pressure 133 mm[Hg] Alex Tam DPM Work Phone: [facility] 06-01-2023 15:33-0500 Body height 157.5 cm Alex Tam DPM Work Phone: [facility] 06-01-2023 15:33-0500 Body mass index (BMI) [Ratio] 50.48 kg/m2 Alex Tam DPM Work Phone: [facility] 06-01-2023 15:33-0500 Body weight 125.19 kg Alex Tam DPM Work Phone: [facility] 06-01-2023 15:33-0500 Diastolic blood pressure 80 mm[Hg] Alex Tam DPM Work Phone: [facility] 06-01-2023 15:33-0500 Heart rate 79 /min Alex Tam DPM Work Phone: [facility] 06-01-2023 15:33-0500 Systolic blood pressure 130 mm[Hg] Alex Tam DPM Work Phone: [facility] 01-16-2020 15:36-0400 BMI (Body Mass Index) 46.35 kg/m2 Tasia Bird [facility] [place] Work Phone: 01-16-2020 15:36-0400 Body weight 122.47 kg Tasia Bird [facility] Work Phone: 01-16-2020 15:36-0400 BSA (Body Surface Area) 2.22 m2 [facility] iBrd [facility] [place] Work Phone: 01-16-2020 15:36-0400 Height 162.56 cm Tasia Bird [facility] Work Phone: Encounters Encounter Date Encounter Type Care Provider Facility Start: 05-16-2024 End: 05-16-2024 Clinisync Result Encounter Kamila Castillo DISSOLVER OPERATOR Work Phone: [facility] Unsolicited Start: 05-16-2024 End: 05-16-2024 Clinisync Result Encounter Kamila Castillo DISSOLVER OPERATOR Work Phone: [facility] Unsolicited Start: 05-15-2024 End: 05-15-2024 Office outpatient visit 25 minutes Kamila Castillo DISSOLVER OPERATOR Work Phone: [facility] Comment on above: Edema, unspecified t ype [...] Office outpatient visit 25 minutes Kamila Castillo DISSOLVER OPERATOR Work Phone: [facility] Comment on [...] End: 04-29-2024 ambulatory Mala Sapp Facility:[facility] Start: 04-15-2024 End: 04-16-2024 Refill Kamila Castillo DISSOLVER OPERATOR Work Phone: [facility] Comment on above: Primary insomnia Start: 04-04-2024 End: 04-04-2024 Orders Only Kamila Castillo DISSOLVER OPERATOR Work Phone: [facility] Comment on above: Acute pulmonary omid a (CMS/HCC) (Primary Dx); Hypokalemia Start: 04-03-2024 End: 04-03-2024 Bamboo flowsheet Kamila Castillo DISSOLVER OPERATOR Work Phone: [facility] Start: 04-03-2024 End: 04-03-2024 Bamboo flowsheet Kamila Castillo DISSOLVER OPERATOR Work Phone: [facility] Start: 04-03-2024 End: 04-03-2024 ambulatory KAMILA CASTILLO Not Available Start: 04-03-2024 End: 04-03-2024 Office outpatient visit 25 minutes Kamila Castillo DISSOLVER OPERATOR Work Phone: [facility] Comment on above: Acute cough (Primary Dx); Rib pain; Fall, initial encounter; Shortness of breath; Lumbosacral spondylosis without myelopathy; Pain of right hand; Right wrist pain; Acute non-recurrent sinusitis of other sinus Start: 04-03-2024 End: 04-03-2024 ambulatory KMAILA CASTILLO Not Available Start: 03-07-2024 End: 03-07-2024 Bamboo flowsheet Waqas Dugan DO Work Phone: [facility] Start: 03-07-2024 End: 03-07-2024 Bamboo flowsheet Waqas Dugan DO Work Phone: [facility] Start: 03-07-2024 End: 03-07-2024 Patient encounter procedure Waqas Dugan DO Work Phone: [facility] Comment on above: Carpal tunnel syndro me on left (Primary Dx) Start: 03-07-2024 End: 03-07-2024 ambulatory WAQAS DUGAN Not Available Start: 03-05-2024 End: 03-05-2024 Bamboo flowsheet Kamila Castillo DISSOLVER OPERATOR Work Phone: [facility] Start: 03-05-2024 End: 03-05-2024 Bamboo flowsheet Kamila Castillo DISSOLVER OPERATOR Work Phone: [facility] Start: 03-05-2024 End: 03-05-2024 Office outpatient visit 25 minutes Kamila Castillo DISSOLVER OPERATOR Work Phone: [facility] Comment on above: Cellulitis of finger of left hand (Primary Dx); Flu vaccine need; Numbness of hand; Encounter for screening mammogram for malignant neoplasm of breast; Lymphadenopathy; Axillary pain, left; Ankylosing spondylitis of thoracic region ([facility]/HCC) Start: 03-05-2024 End: 03-05-2024 ambulatory KAMILA CASTILLO Not Available Start: 02-29-2024 End: 02-29-2024 Shauna Steele MD Work Phone: [facility] Comment on above: 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 Start: 02-22-2024 End: 02-22-2024 Patient encounter procedure Alex aTm DPM Work Phone: [facility] Comment [...] Start: 12-14-2023 End: 12-14-2023 ambulatory ALEX Nolberto TAM Not Available Start: 11-30-2023 End: 11-30-2023 ambulatory KAMILA M BIGG Not Available Start: 10-05-2023 End: 10-05-2023 ambulatory ALEX Nolberto TAM Not Available Start: 09-12-2023 End: 09-12-2023 ambulatory KAMILA M BIGG Not Available Start: 07-27-2023 End: 07-27-2023 ambulatory ALEX Nolberto TAM Not Available Start: 07-06-2023 End: 07-06-2023 ambulatory KAMILA M BIGG Not Available Start: 06-29-2023 End: 06-29-2023 ambulatory ALEX A SAYDA Not Available Start: 06-27-2023 End: 06-27-2023 ambulatory [...] right Start: 06-01-2023 End: 06-01-2023 ambulatory ALEX Arvizu SAYDA Not Available Start: 05-18-2023 End: 05-18-2023 ambulatory ALEX TAM Not Available Start: 10-04-2022 Patient encounter procedure [facility] Work Phone: [facility] [place] Work Phone: Start: 10-04-[address] Roc Steele II Facility:[id number] Start: 09-05-2022 End: 09-05-[address] SARABJIT CORNEJO . Facility:[facility] Start: 09-03-2022 End: 09-03-2022 ambulatory SASHA DUTTA . Facility:[facility] Start: 06-06-2022 End: 06-07-[address] ROC STEELE Facility:[facility] Start: 12-16-2020 Patient encounter procedure Mone Weiss MD Work Phone: [facility] [place] Work Phone: Start: 11-25-2020 Chart Update Tasia Crawford Work Phone: [facility] [place] Work Phone: Start: 10-15-2020 Patient encounter procedure Carmen Bird MD Work Phone: [facility] [place] Work Phone: Start: 02-13-2020 Patient encounter procedure Tasia Bird [facility] [place] Work Phone: Start: 01-16-2020 Patient encounter procedure Tasia Bird [facility] [place] Work Phone: Procedures Date Procedure Procedure Detail Performing Clinician Start: 05-16-2024 ALL BASIC METABOLIC PANEL Kamila Castillo NP Work Phone: Start: 05-12-2024 BLOOD CULTURE 1 Generic External [...] [address] [place] [address] Alex Tam DPM [address] [facility] [address] [place] [address] [facility] Start: 05-16-2024 End: 05-16-2024 Patient encounter procedure 05/16/2024 1:00 PM EST Office Visit [facility] [address] [place] [address] Kamila Castillo DISSOLVER OPERATOR [address] [place] [address] [facility] Start: 05-15-2024 End: 05-15-2025 Basic metabolic 1998 panel - Serum or Plasma Basic metabolic panel Lab Routine Acute congestive heart failure, unspecified heart failure type ([facility]/HCC) Expected: 05/15/2024 (Approximate), Expires: 05/15/2025 [facility] Work Phone: Comment on above: Expected: 05/15/2024 (Approximate), Expires: 05/15/2025 Start: 05-15-2024 End: 05-15-2024 Patient encounter procedure 05/15/2024 11:30 AM EST Office Visit [facility] [address] [place] [address] Kamila Castillo DISSOLVER OPERATOR [address] [place] [address] [facility] Start: 05-14-2024 End: 05-14-2024 Patient encounter procedure 05/14/2024 11:00 AM EST Office Visit [facility] [address] [place] [address] Kamila Castillo NP [address] [place] [address] [facility] Start: 05-02-2024 End: 05-02-2024 Patient encounter procedure 05/02/2024 2:50 PM EST Procedure Visit [facility] [address] [place] [address] Alex Tam DPRen [address] [facility] [address] [place], [place] [id number] [facility] Start: 04-03-2024 End: 04-03-2025 [...] [address] [place] [address] Kamila Castillo NP [address] [place] [address] Arrived [facility] Comment on above: Arrived Start: 03-07-2024 End: 03-07-2024 Patient encounter procedure 03/07/2024 11:00 AM EST Procedure Visit [facility] [address] [place] [id number] Waqas Dugan, [address] [place], [place] [id number] Numbness of hand [facility] [address] [facility] Comment on above: Numbness of [...] [address] [place] [address] Kamila Castillo NP [address] [place] [address] [facility] Start: 02-22-2024 End: 02-22-2024 [...] [address] [place] [address] Alex Tam, SOPHY [address] [address] [facility] Start: 06-30-2023 Medicare Annual Wellness (AWV) Medicare Annual Wellness (AWV) [facility] Start: 06-29-2023 End: 06-29-2023 Patient encounter procedure 06/29/2023 2:30 PM EST Office Visit [facility] [address] [place] [address] Alex Tam DPM [address] [address] [facility] Start: 06-15-2023 End: 06-15-2023 Patient encounter procedure 06/15/2023 2:30 PM EST Office Visit [facility] [address] [facility] [address] [place] [id number] Alex Tam, DPM [address] [address] [facility] Start: 10-17-2022 NPV, Provider: Roc Alvarado, Status: Pen, Time: 1:30 PM NPV, Provider: Roc Alvarado, Status: Pen, Time: 1:30 PM [facility] [place] Work Phone: Start: 01-07-2021 FUV, Provider: Tasia Bird, Status: Pen, Time: 2:15 PM FUV, Provider: Tasia Bird, Status: Pen, Time: 2:15 PM [facility] [place] Work Phone: Start: 12-03-2020 FUV, Provider: Tasia Bird, Status: Pen, Time: 12:45 PM FUV, Provider: Tasia Bird, Status: Pen, Time: 12:45 PM [facility] [place] Work Phone: BLOOD CULTURE 1 BLOOD CULTURE 1 Lab Routine 05/12/2024 8:10 PM EST [facility] Immunizations Immunization Date Immunization Notes Care Provider Hao allred 03-05-2024 Influenza, High-dose Seasonal, Quadrivalent, Preservative Free Kamila Castillo NP Work Phone: [facility] 03-01-2023 Influenza, High-dose Seasonal, Quadrivalent, Preservative Free Alex Tam DPM Work Phone: [facility] 03-01-2023 influenza virus vacc ine, unspecified formulation Roc Steele MD Work Phone: [facility] 03-31-2022 Moderna Bivalent Pereira ster Vaccination Alex Tam DPM Work Phone: [facility] 03-23-2022 Influenza, High-dose Seasonal, Quadrivalent, Preservative Free Alex Tam DPM Work Phone: [facility] 01-28-2021 Influenza, Seasonal, Quadrivalent, Adjuvanted Alex Tam DPM Work Phone: [facility] 01-30-2020 influenza, injectabl e, quadrivalent, preservative free Alex Tam DPM Work Phone: [facility] 09-26-2019 zoster vaccine recombinant N todd Tam DPM Work Phone: [facility] 05-16-2019 zoster vaccine recombinant N todd Tam DPM Work Phone: [facility] 01-31-2018 influenza, high dose seasonal, preservative-free Alex Tam DPM Work Phone: [facility] 01-25-2017 influenza, high dose seasonal, preservative-free Alex Tam DPM Work Phone: [facility] 02-02-2016 influenza, injectabl e, quadrivalent, contains preservative Alex Tam DPM Work Phone: [facility] 02-07-2015 pneumococcal conjuga te vaccine, 13 valent Alex Tam DPM Work Phone: [facility] 01-30-2015 seasonal influenza, intradermal, preservative free Alex Tam DPM Work Phone: [facility] 02-07-2014 seasonal influenza, intradermal, preservative free Alex Tam DPM Work Phone: [facility] 12-11-2013 pneumococcal polysaccharide vaccine, 23 valent Alex Sayda DPM Work Phone: [facility] 01-17-2012 zoster vaccine, live Zoya Tam DPM Work Phone: [facility] Payers Date Payer Category Payer Private Health Insurance [facility] [id number] 2022 Unknown 2008 Medicare [id number] 2008 Medicare [id number] 1959 Medicare [id number] 1959 Unknown [id number] 1946 Unknown [id number] 2.16.840.1.619244.3.579 .2.593 1946 Unknown [id number] 2.16.840.1.257636.3.579 .2.593 1946 Unknown [id number] 2.16.840.1.108241.3.579 .2.593 1946 Unknown [id number] 2.16.840.1.780353.3.579 .2.1068 1946 Unknown [id number] 2.16.840.1.054626.3.579 .2.1258 1946 Unknown [id number] 2.16.840.1.856006.3.579 .2.1258 1946 Unknown [id number] 2.16.840.1.699913.3.579 .2.1258 1946 Unknown [id number] 2.16.840.1.899723.3.579 .2.1258 1946 Unknown [id number] 2.16.840.1.474023.3.579 .2.1258 1946 Unknown [id number] 2.16.840.1.819510.3.579 .2.1258 1946 Unknown [id number] 2.16.840.1.204416.3.579 .2.1258 1946 Unknown [id number] 2.16.840.1.239899.3.579 .2.1258 1946 Unknown [id number] 2.16.840.1.522738.3.579 .2.1258 1946 Unknown [id number] 2.16.840.1.992115.3.579 .2.1258 1946 Unknown [id number] 2.16.840.1.879433.3.579 .2.1258 1946 Unknown [id number] 2.16.840.1.100968.3.579 .2.1258 1946 Unknown [id number] 2.16.840.1.460834.3.579 .2.1258 1946 Unknown [id number] 2.16.840.1.665775.3.579 .2.1258 1946 Unknown [id number] 2.16.840.1.598878.3.579 .2.1258 1946 Unknown [id number] 2.16.840.1.143989.3.579 .2.1259 1946 Unknown [id number] 2.16.840.1.114806.3.579 .2.1259 1946 Unknown [id number] 2.16.840.1.199939.3.579 .2.1259 Social History Date Type Detail Facility Start: 11-25-2022 End: 07-06-2023 Never a smoker Never a smoker [facility] Work Phone: Start: 10-03-2022 Tobacco smoking stat [facility] Never smoked tobacco [facility] Start: [...] Only a little [facility] (I/We) worried wheeamon er (my/our) food would run out before (I/we) got money to buy more. Never true [facility] Start: 1945 Sex Assigned At Not on file [facility] NEGATED: Highlighted row - - [facility] [place] Work Phone: Functional Status Date Assessment Result Facility NEGATED: Highlighted row Functional performance Functional status health issues are not documented Disease [facility] Work Phone: Mental Status Date Assessment Result Facility NEGATED: Highlighted row Cognitive function [Interpretation] Cognitive status health issues are not documented [facility] [place] Work Phone: Clinical Notes 06-01-2023 to 05-15-2024 Kamila Castillo NP - 05/15/2024 11:30 AM Willam Castillo NP - 05/07/2024 11:00 AM ESTTelephone [...] for pneumonia and CHF. Was admitted to [facility] on 05-12-24.She is feeling weak and SOB still. Home health has not started. Pt would benefit from Nursing, PT/OT, and aide. PT was diagnosed with generalized weakness, CHF, And pneumonia. She continues on Doxycycline. The hospital discharge pt with an order for Lasix prn. Pt educated on when to take a prn lasix. She verbalized understanding. The hospital set up [facility] but we will set pt up with Erik as they have a contract with [facility]. She is home bound due to her [...] SURGERY 2018 CATARACT EXTRACTION Bilateral 2015 COLONOSCOPY 2012 HEART CATH 2016 IR INJECTION NERVE BLOCK 2018 and 2019 LUMBAR EPIDURAL INJECTION 2017 to 2021 LUMBAR TRANSFORAMINAL EPIDURAL STEROID INJECTION x7 NERVE BLOCK Left 03/26/2019 T12-L3 ND TOTAL HIP ARTHROPLASTY Left Agra (01-29-2020 to 01-30-2020) RADIOFREQUENCY ABLATION Left 06/25/2019 [...] follow-ups on file. documented in this encounter [facility] 05-07-2024 History of Presen t illness Narrative [...] TWICE DAILY 200 capsule 3 [] HYDROcodone-acetaminophen ([place]) 5-325 MG tablet Take 1 tablet by [...] ANKLE FRACTURE SURGERY 2018 CATARACT EXTRACTION Bilateral 2014 COLONOSCOPY 2012 HEART CATH 2016 IR INJECTION NERVE BLOCK 2018 and 2019 LUMBAR EPIDURAL INJECTION 2017 to 2021 LUMBAR TRANSFORAMINAL EPIDURAL STEROID INJECTION x7 NERVE BLOCK Left 03/26/2019 T12-L3 ND TOTAL HIP ARTHROPLASTY Left [place]ra (01-29-2020 to 01-30-2020) RADIOFREQUENCY ABLATION Left 06/25/2019 [...] (CMS/HCC) Body mass index (BMI) 45.0-49.9, adult (CMS/[facility]) Discussed goal of BMI < 30. Advised [...] follow-ups on file. documented in this encounter [facility] 04-16-2024 Telephone encount er Note OARRS reviewed, Rx sent into patient's pharmacy. [facility] 04-16-2024 Miscellaneous Notes Formattin g of this note might be different from the original. OARRS reviewed, Rx sent into patient's pharmacy. documented in this encounter [facility] 04-03-2024 History of Presen t illness Narrative [...] breathing, coughing, lifting and movement. Treatments tried: [place], cough syrup, muscle relaxer. The treatment provided [...] TWICE DAILY 200 capsule 3 [] HYDROcodone-acetaminophen ([place]) 5-325 MG tablet Take 1 tablet by [...] ANKLE FRACTURE SURGERY 2018 CATARACT EXTRACTION Bilateral 2014 COLONOSCOPY 2012 HEART CATH 2016 IR INJECTION NERVE BLOCK 2018 and 2019 LUMBAR EPIDURAL INJECTION 2017 to 2021 LUMBAR TRANSFORAMINAL EPIDURAL STEROID INJECTION x7 NERVE BLOCK Left 03/26/2019 T12-L3 ND TOTAL HIP ARTHROPLASTY Left Agra (01-29-2020 to 01-30-2020) RADIOFREQUENCY ABLATION Left 06/25/2019 [...] breathing. Lumbosacral spondylosis without myelopathy - HYDROcodone-acetaminophen ([place]) 5-325 MG tablet; Take 1 tablet by [...] follow-ups on file. documented in this encounter [facility] 03-07-2024 Note Carpal tunnel syndro me, left, severe. Progressed substantially when compared to EDX evaluation in 2021. C8 radiculopathy, left, moderate. Progressed when compared to EDX evaluation in 2021 [facility] 03-07-2024 Note Carpal tunnel syndro me, left, severe. Progressed substantially when compared to EDX evaluation in 2021. C8 radiculopathy, left, moderate. Progressed when compared to EDX evaluation in 2021 [facility] 03-07-2024 History of Presen t illness Narrative Images from the original note were not included. Reason for Appointment: EMG Patient: Luma Ribeiro : 1945 EMG Computer: [email or web address] Referring Physician: Kamila Castillo CNP EMG: PABLO order runner: Jimmy Gibson RT(R) Office Location: [place] Reason for EMG: c/o numbness/tingling in left hand/forearm especially in 2nd & 3rd digits, weakness in left hand. No hx of DM. Not on blood thinners. Comments: Procedure was explained to the patient who expressed understanding. Patient appeared to have tolerated the test well despite some discomfort due to the nature of the test. 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 Hypertension This is [...] MOUTH TWICE DAILY 200 capsule 3 HYDROcodone-acetaminophen ([place]) 5-325 MG tablet Take 1 tablet by [...] at bedtime 90 tablet 1 [DISCONTINUED] HYDROcodone-acetaminophen ([place]) 5-325 MG tablet Take 1 tablet by [...] HEART CATH 2016 IR INJECTION NERVE BLOCK 2019 and 2019 LUMBAR EPIDURAL INJECTION 2018 to 2021 LUMBAR TRANSFORAMINAL EPIDURAL STEROID INJECTION x7 NERVE BLOCK Left 03/26/2019 T12-L3 ND TOTAL HIP ARTHROPLASTY Left Agra (01-29-2020 to 01-30-2020) RADIOFREQUENCY ABLATION Left 06/25/2019 [...] need - Influenza, high-dose seasonal, quadrivalent, PF (HEM542) (Fluzone High Dose Quad North 0.7mL dose) [...] follow-ups on file. documented in this encounter [facility] 02-29-2024 Telephone encount er Note OARRS reviewed, Rx sent into patient's pharmacy. [facility] 02-29-2024 Miscellaneous Notes Formattin g of this note might be different from the original. OARRS reviewed, Rx sent into patient's pharmacy. Hydrocodone 325 DDM [place] She had an appt today for a med follow up with kamila but had to change it due to her not being in. She said she has about 6 pills left. She did reschedule her med follow up for next Monday. documented in this encounter [facility] 02-29-2024 Telephone encount er Note Hydrocodone 325 DDM [place] She had an appt today for a med follow up with kamila but had to change it due to her not being in. She said she has about 6 pills left. She did reschedule her med follow up for next Monday. [facility] 01-29-2024 Telephone encount er Note Amlodipine sent [facility] 01-29-2024 Miscellaneous Notes Formattin g of this note might be different from the original. Amlodipine sent documented in this encounter [facility] 06-15-2023 History of Presen t illness Narrative [...] Diagnosis Date Cardiomegaly Diverticulosis 2013 Edema Glaucoma ([facility]) Heart disease, unspecified History of lumbar surgery multiple times HTN (hypertension) ([facility]) Hyperlipidemia ([facility]) Insomnia Lumbago [...] min Stress: No Stress Concern Present (11/25/2022) [facility] - Occupational Stress Questionnaire Feeling of Stress : Only a little Social Connections: Moderately Isolated (11/25/2022) Social Connection and Isolation Panel [NHANES] Frequency of Communication with Friends and Family: More than three times a week Frequency of Social Gatherings with Friends and Family: Once a week Attends Denominational Services: Never Active Member of Clubs or [...] Patient may continue with conservative treatments including crks-fbi-inofjre anti-inflammatories and other treatments suggested today. Patient may want to be scheduled for surgical intervention in the near future. Patient have the right hallux subungual exostectomy with the lateral left hallux partial permanent nail avulsion in the near future Alex Tam DPM documented in this encounter [facility] 06-01-2023 History of Presen t illness Narrative [...] Diagnosis Date Cardiomegaly Diverticulosis 2013 Edema Glaucoma ([facility]) Heart disease, unspecified History of lumbar surgery multiple times HTN (hypertension) ([facility]) Hyperlipidemia ([facility]) Insomnia Lumbago [...] min Stress: No Stress Concern Present (11/25/2022) [facility] - Occupational Stress Questionnaire Feeling of Stress : Only a little Social Connections: Moderately Isolated (11/25/2022) Social Connection and Isolation Panel [NHANES] Frequency of Communication with Friends and Family: More than three times a week Frequency of Social Gatherings with Friends and Family: Once a week Attends Denominational Services: Never Active Member of Clubs or [...] Patient may continue with conservative treatments including iqba-fjt-trconwu anti-inflammatories and other treatments suggested today. Patient [...] Alex Tam DPM documented in this encounter [facility] Evaluation note Diagnosis Subungual exostosis of [...] lifetime intraarticular shoulder injection, which the patient accepts[facility] Work Phone: History of Present illness Narrative* [...] normal pronation supination wrist flexion extension 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 Distal pulses and sensation are intact. Limited forward flexion to about 25 degrees lateral abduction to about 15 unable to perform any external rotation but internal he can get to the small of her back. Herexam does not allow for much of a true Neer's [place] or Sorrento's test. * Diagnostics: See dictated report from today, previous outside CT scan report of the humerus reviewed, and is available in the [facility] chart. * Procedure: None * Assessment: [...] the patient's CT scan report reviewed in [facility] Other than the anterior medial dislocation [...] grammatical areas may persist related to the [employer] software * Taniay Canchola MD * Office: * . [facility] Work Phone: History of Present illness Narrative* Alex Tam, EJM - 02/22/2024 2:50 PM EDT Patient: Luma [...] min Stress: No Stress Concern Present (11/25/2022) [facility] - Occupational Stress Questionnaire Feeling of Stress : Only a little Social Connections: Moderately Isolated (11/25/2022) Social Connection and Isolation Panel [NHANES] Frequency of Communication with Friends and Family: More than three times a week Frequency of Social Gatherings with Friends and Family: Once a week Attends Denominational Services: Never Active Member of Clubs or [...] 9 Alex Tam DPM documented in this encounterNOMS [facility] HospitalReason for visit Narrative* Other Medical (Routine) - Closed Specialty Diagnoses / Procedures Referred By Aminah t Referred To Contact Neurology Diagnoses Numbness of hand Procedures ND OFFICE/OUTPATIENT NEW HIGH MDM 60 MINUTES Kamila Castillo, DISSOLVER OPERATOR [address] [facility] [address] [place] [address] Phone: tel: fax: Waqas Dugan DO [address] [place] [address] Phone: tel: fax: Referral ID Status Reason Start Date Expiration Date V isits Requested Visits Authorized [id number] Closed Perform Procedure 03/05/2024 09/01/2024 1 1 [facility] Chief Complaint * New problem * Right shoulder pain MP Refer : RT shoulder ultra sound guided injection* Right shoulder pain, here for injection. 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 Summary Purpose Family History No Family [...] content) DATE CREATED AUTHOR 09/08/2022 [facility] DATE CREATED AUTHOR AUTHOR'S ORGANIZ ATION 09/12/2022 [facility] dical Specialist DATE CREATED AUTHOR AUTHOR'S ORGANIZ ATION 10/09/2022 [facility] DATE CREATED AUTHOR AUTHOR'S ORGANIZ ATION 10/09/2022 [facility] DATE CREATED AUTHOR AUTHOR'S ORGANIZ ATION 05/01/2024 [facility] DATE CREATED AUTHOR AUTHOR'S ORGANIZ ATION 05/13/2024 [facility] dical Specialists EPIC Reason for Visit (unrecogniz [...] Care Teams (unrecognized sec tion and content) Steel Wheel Engraver Relationship Specialty Start Date End Date Roc Steele MD [address] [place] [address] PCP - ACO Reach 09/22/22 Roc Steele MD [address] [place] [address] PCP - General Internal Medicine 09/28/22 Steel Wheel Engraver Relationship Specialty Start Date End Date Roc Steele MD [address] [place] [address] PCP - ACO Reach 09/22/22 Roc Steele MD [address] [place] [address] PCP - General Internal Medicine 09/28/22 Steel Wheel Engraver Relationship Specialty Start Date End Date Roc Steele MD [address] [place] [address] PCP - ACO Reach 09/22/22 Roc Steele MD [address] [place] [address] PCP - General Internal Medicine 09/28/22 Steel Wheel Engraver Relationship Specialty Start Date End Date Roc Steele MD [address] [place] [address] PCP - General Internal Medicine 09/28/22 Roc Steele MD [address] [place] [address] PCP - ACO Reach 08/30/23 Steel Wheel Engraver Relationship Specialty Start Date End Date Roc Steele MD [address] [place] [address] PCP - General Internal Medicine 09/28/22 Roc Steele MD [address] [place] [address] PCP - ACO Reach 08/30/23 Steel Wheel Engraver Relationship Specialty Start Date End Date Roc Steele MD [address] [place] [address] PCP - General Internal Medicine 09/28/22 Roc Steele MD [address] [place] [address] PCP - ACO Reach 08/30/23 Steel Wheel Engraver Relationship Specialty Start Date End Date Roc Steele MD [address] [place] [address] PCP - General Internal Medicine 09/28/22 Roc Steele MD [address] [place] [address] PCP - ACO Reach 08/30/23 Steel Wheel Engraver Relationship Specialty Start Date End Date Roc Steele MD [address] [place] [address] PCP - General Internal Medicine 09/28/22 Roc Steele MD [address] [place] [address] PCP - ACO Reach 08/30/23 Steel Wheel Engraver Relationship Specialty Start Date End Date Roc Steele MD [address] [place] [address] PCP - General Internal Medicine 09/28/22 Roc Steele MD [address] [place] [address] PCP - ACO Reach 08/30/23 Steel Wheel Engraver Relationship Specialty Start Date End Date Roc Steele MD [address] [place] [address] PCP - General Internal Medicine 09/28/22 Roc Steele MD [address] [place] [address] PCP - ACO Reach 08/30/23 Waqas Dugan DO [address] [place] [address] Referring Physician Neurology 03/07/24 Steel Wheel Engraver Relationship Specialty Start Date End Date Roc Steele MD [address] [place] [address] PCP - General Internal Medicine 09/28/22 Roc Steele MD [address] [place] [address] PCP - ACO Reach 08/30/23 Waqas Dugan DO [address] [place] [address] Referring Physician Neurology 03/07/24 Steel Wheel Engraver Relationship Specialty Start Date End Date Roc Steele MD [address] [place] [address] PCP - General Internal Medicine 09/28/22 Roc Steele MD [address] [place] [address] PCP - ACO Reach 08/30/23 Waqas Dugan DO [address] [place] [address] Referring Physician Neurology 03/07/24 Steel Wheel Engraver Relationship Specialty Start Date End Date Roc Steele MD [address] [place] [address] PCP - General Internal Medicine 09/28/22 Roc Steele MD [address] [place] [address] PCP - ACO Reach 08/30/23 Waqas Dugan DO [address] [place] [address] Referring Physician Neurology 03/07/24 Steel Wheel Engraver Relationship Specialty Start Date End Date Roc Steele MD [address] [place] [address] PCP - General Internal Medicine 09/28/22 Roc Steele MD [address] [place] [address] PCP - ACO Reach 08/30/23 Waqas Dugan DO [address] [place] [address] Referring Physician Neurology 03/07/24 Steel Wheel Engraver Relationship Specialty Start Date End Date Roc Steele MD [address] [place] [address] PCP - General Internal Medicine 09/28/22 Roc Steele MD [address] [place] [address] PCP - ACO Reach 08/30/23 Steel Wheel Engraver Relationship Specialty Start Date End Date Roc Steele MD [address] [place] [address] PCP - General Internal Medicine 09/28/22 Roc Steele MD [address] [place] [address] PCP - ACO Reach 08/30/23 Waqas Dugan DO [address] [place] [address] Referring Physician Neurology 03/07/24 Steel Wheel Engraver Relationship Specialty Start Date End Date Roc Steele MD [address] [place] [address] PCP - General Internal Medicine 09/28/22 Roc Steele MD [address] [place] [address] PCP - ACO Reach 08/30/23 Waqas Dugan DO [address] [place] [address] Referring Physician Neurology 03/07/24 Steel Wheel Engraver Relationship Specialty Start Date End Date Roc Steele MD [address] [place] [address] PCP - General Internal Medicine 09/28/22 Roc Steele MD [address] [facility] [address] [place] [address] PCP - ACO Reach 08/30/23 Waqas Dugan DO [address] [place] [address] Referring Physician Neurology 03/07/24 Steel Wheel Engraver Relationship Specialty Start Date End Date Roc Steele MD [address] [facility] [address] [place] [address] PCP - General Internal Medicine 09/28/22 Roc Steele MD [address] [facility] [address] [place] [address] PCP - ACO Reach 08/30/23 Waqas Dugan DO [address] [place] [address] Referring Physician Neurology 03/07/24 FOR RECORDS PERTAINING [...] BE BASED ON THE PRIMARY CLINICAL RECORDS. [employer] [facility]. provides no warranty or guarantee of the accuracy or completeness of information in this document.
[2024-05-16 20:59] VITALS: BP 161/88; PULSE 78; PULSE 79; TEMP 36.4; O2SAT 99; BMI 45.8
[2024-05-16] MEDS: MAGNESIUM SULFATE IN WATER 2 GM/50 ML PREMIX IV (21:05)
[2024-05-16 21:25] VITALS: O2SAT 100
[2024-05-16 22:14] VITALS: PULSE 85
[2024-05-17] VITALS (22 sets, daily range): BP systolic 110–139; BP diastolic 71–81; PULSE 73–106; TEMP 36.4–36.7; O2SAT 93–97
[2024-05-17 01:58] LABS: Lactate/Lactic Acid 1.5 mmol/L (0.4-2.0)
[2024-05-17] MEDS: 0.9 % SODIUM CHLORIDE 1,000 ML 100 ML IV (05:59)
[2024-05-17 06:14] LABS: Basophils Percent Auto 0.4 % (0.2-2.0); Eosinophils Absolute Auto 0.1 10^3/uL (0.0-0.7); Hematocrit 39.2 % (36.0-48.0); Hemoglobin 13.3 g/dL (12.0-16.0); Immature Granulocytes Abs Auto 0.02 10^3/uL (0.00-0.03); Immature Granulocytes Pct Auto 0.3 % (0.0-0.5); Lymphocytes Absolute Auto 2.1 10^3/uL (1.2-3.8); Mean Corpuscular HGB Conc 33.9 g/dL (29.9-35.2); Mean Corpuscular Hemoglobin 32.1 pg (26.7-34.0); Mean Corpuscular Volume 94.7 fL (81.0-99.0); Mean Platelet Volume 10.8 fL (9.5-13.5); Monocytes Percent Auto 13.4 % (1.7-12.0); Neutrophils Absolute Auto 4.4 10^3/uL (1.4-6.5); Neutrophils Percent Auto 56.9 % (43.0-75.0); Platelet Count 204 10^3/uL (150-450); Red Blood Count 4.14 10^6/uL (4.20-5.40); White Blood Count 7.6 10^3/uL (4.0-11.0)
[2024-05-17 06:32] LABS: Alanine Aminotransferase 19 U/L (14-59); Albumin Globulin Ratio 0.9; Albumin Level 2.9 g/dL (3.4-5.0); Alkaline Phosphatase 102 U/L (46-116); Anion Gap 10.5; Aspartate Amino Transferase 27 U/L (15-37); BUN Creatinine Ratio 20.2; Bilirubin Total 1.2 mg/dL (0.2-1.0); Calcium 8.8 mg/dL (8.5-10.1); Chloride 106 mmol/L (98-107); Estimated GFR (African America >60 (>=60 mL/min/1.73m^2); Estimated GFR (Non-African Ame 51 (>=60 mL/min/1.73m^2); Globulin 3.4 g/dL; Glucose 127 mg/dL (74-106); Potassium 3.5 mmol/L (3.5-5.1); Sodium 143 mmol/L (136-145); Total Protein 6.3 g/dL (6.4-8.2)
[2024-05-17] MEDS: IPRATROPIUM/ALBUTEROL SULFATE 3 ML AMPUL.NEB IH (07:40)
[2024-05-17] MEDS: ATORVASTATIN CALCIUM 10 MG TABLET PO (08:57)
[2024-05-17] MEDS: ENOXAPARIN SODIUM 40 MG/0.4 ML SYRINGE SUBQ (08:57)
[2024-05-17] MEDS: GABAPENTIN 300 MG CAPSULE PO ×2 (08:57→22:24)
[2024-05-17] MEDS: OMEPRAZOLE 40 MG CAPSULE.DR PO (08:57)
[2024-05-17] MEDS: ALPRAZOLAM 0.25 MG TABLET PO ×2 (08:57→22:26)
[2024-05-17] MEDS: DOCUSATE SODIUM 100 MG CAPSULE PO (08:57)
[2024-05-17] MEDS: FUROSEMIDE 20 MG TABLET PO (08:57)
[2024-05-17] MEDS: METOPROLOL SUCCINATE 50 MG TAB.ER.24H PO ×2 (08:57→22:24)
[2024-05-17] MEDS: DOXYCYCLINE MONOHYDRATE 100 MG CAPSULE PO ×2 (08:57→22:24)
[2024-05-17] MEDS: TIZANIDINE HCL 4 MG TABLET PO (08:58)
--- NOTE | 2024-05-17 10:26 | SWNOTE1 ---
AMARA met with pt to discuss dc needs. Physical therapy did recommend HH at this time. SW did explain to pt that at this time she is in observation status and for Medicare to pay for rehab she would need a qualifying 3 day inpt stay. Pt voiced her legs are weak and she can't get out of her kitchen chair at home. She stated she called the squad 2-3 times the day before to help her out of the bath and out of the kitchen chair. Pt became emotional and started crying and stated her just got home from the [place] yesterday. She stated he has been in and out of hospital and rehab so much and now she is back at the hospital. She stated her and son will be so angry if she is discharged home. She also stated she should not have been discharged last time she was here. She stated the doctor asked her how she felt last time before discharge and she told her great, but stated her upper half was feeling good, but her legs were weak. She also stated she will just go to [facility] if she gets discharged. AMARA did ask pt if home health came in. She stated that it was kind a mix up. The nurse at her PCP's office set up [facility] at her follow up appointment because [facility] had not been in yet. Then [facility] came and then [facility] nurse came the next day. The [facility] nurse told her to cancel [facility], and she thinks she did, but can't remember. AMARA advised pt that SW will check in to this. At this time AMARA let pt know that SW will follow back up after doctor rounds. AMARA asked her how she thought therapy went this morning. Pt was not sure if she got herself out of bed, she thinks she did and she was able to walk to the door and back to the chair.
--- NOTE | 2024-05-17 10:32 | SWNOTE1 ---
Medicare Outpatient Observation Notice reviewed and discussed with patient. Pt. verbalized understanding and signed the form. Original given to patient and copy placed in patient?s chart.
--- NOTE | 2024-05-17 12:23 | CM.NOTE ---
Rounds made with Dr. Calles, discussed in depth with pt OBS status and reason for decision based on medical needs. Explained to pt she could go skilled but would be an out of pocket expense. Pt states I can't afford that. PT and OT will continue to work with pt for strengthening. No discharge today.
--- NOTE | 2024-05-17 14:06 | CM.NOTE ---
Faxed Case Management record, Physician notes, and face sheet for updates to [facility]. Message sent to Dr. Calles for pt's need of wheeled walker.
--- NOTE | 2024-05-17 14:31 | P.HP_ITS ---
HPI H&P: HPI History of Present Illness Chief complaint: WEAKNESS Narrative: 78 y/o female to ER with weakness. Admitted 05/12-05/14 with pneumonia and CHF exacerbation. C/o worsening weakness and fatigue since discharge. Very difficult to get up from sitting and hard to get around house. Fell at home and hard to get up. Not able to get out of chair and called EMS. To ER and WBC normal. Chest x-ray negative for pneumonia or fluid overload. Renal function improved from discharge. Admitted for weakness. Resumed home medication. Continues to c/o weakness this am. Opioid HPI Opioid Management Most Recent Pain and Opioid Data: Last Pain Scale 0 05/17/24 14:16 05/17/24 Last Pain Assessment 05/17/24 10:46 Last Pain Assessment 05/17/24 14:16 Last ORT Total Score 0 05/16/24 20:59 05/16/24 Last ORT Risk Category Low Risk 05/16/24 20:59 05/16/24 Review of Systems ROS Constitutional Denies: fever, chills or fatigue Cardiovascular Denies: chest pain, palpitations or edema Respiratory Denies: shortness of breath, cough or wheezing Gastrointestinal Denies: abdominal pain, nausea, vomiting or diarrhea Genitourinary Denies: painful urination [facility] Medical History (Updated 05/17/24 @ 09:26 by Lamont Calles MD) Pulmonary edema ?J81.1 - Chronic pulmonary edema (ICD-10) Closed head injury ?S09.90XA - Unspecified injury of head, initial encounter (ICD-10) Contusion of right knee ?S80.01XA - Contusion of right knee, initial encounter (ICD-10) Abrasion of elbow, right ?S50.311A - Abrasion of right elbow, initial encounter (ICD-10) Generalized weakness ?R53.1 - Weakness (ICD-10) Pneumonia ?J18.9 - Pneumonia, unspecified organism (ICD-10) Acute CHF (congestive heart failure) ?I50.9 - Heart failure, unspecified (ICD-10) Acute kidney injury ?N17.9 - Acute kidney failure, unspecified (ICD-10) Community acquired pneumonia ?J18.9 - Pneumonia, unspecified organism (ICD-10) GERD without esophagitis ?K21.9 - Gastro-esophageal reflux disease without esophagitis (ICD-10) Lump of left breast ?N63.20 - Unspecified lump in the left breast, unspecified quadrant (ICD-10) High cholesterol ?E78.00 - Pure hypercholesterolemia, unspecified (ICD-10) High blood pressure ?I10 - Essential (primary) hypertension (ICD-10) Anxiety ?F41.9 - Anxiety disorder, unspecified (ICD-10) Macular degeneration ?H35.30 - Unspecified macular degeneration (ICD-10) Degenerative disc disease Fibromyalgia ?M79.7 - Fibromyalgia (ICD-10) Right shoulder pain ?M25.511 - Pain in right shoulder (ICD-10) Sleep apnea ?G47.30 - Sleep apnea, unspecified (ICD-10) Surgical History Carpal tunnel syndrome, left ?G56.02 - Carpal tunnel syndrome, left upper limb (ICD-10) History of arthroplasty of right ankle ?Z96.661 - Presence of right artificial ankle joint (ICD-10) History of bilateral knee replacement ?Z96.653 - Presence of artificial knee joint, bilateral (ICD-10) History of right hip replacement ?Z96.641 - Presence of right artificial hip joint (ICD-10) Family History Mother Family history of CHF (congestive heart failure) Sister Family history of CHF (congestive heart failure) Son Family history of cancer Family history of diabetes mellitus Family history of hypertension Social History Within the past year, how often did you have a drink containing alcohol: never Score interpretation: A score less than 3 is consistent with normal alcohol consumption. Smoking status: Never smoker Non-prescribed substance use: denies use Previous occupational history: retired Highest level of school completed/degree received: GED or equivalent Are you now , , , , never or living with a partner: In a typical week, how many times do you talk on the telephone with family, friends, or neighbors: 3 or more times per week How often do you get together with friends or relatives: 3 or more times per week How often do you attend zoroastrian or confucianism services: never Little interest or pleasure in doing things: not at all Feeling down, depressed, or hopeless: not at all Feel stressed/tense/nervous/anxious/difficulty sleeping: not at all Do you think of yourself as: straight/heterosexual Gender Identity: female Meds Home Medications and Allergies Home Medications ?Medication ?Instructions ?Recorded ?Confirmed ?Type alprazolam 0.25 mg tablet 0.25 mg PO BID PRN anxiety 12/01/22 05/16/24 History gabapentin 300 mg capsule 300 mg PO BID 12/01/22 05/16/24 History hydrocodone 5 mg-acetaminophen 325 1 tab PO Q6H PRN pain 12/01/22 05/16/24 History mg tablet meloxicam 15 mg tablet 15 mg PO DAILY 12/01/22 05/16/24 History nortriptyline 10 mg capsule 30 mg PO BEDTIME 12/01/22 05/16/24 History pantoprazole 40 mg tablet,delayed 40 mg PO DAILY 12/01/22 05/16/24 History release simvastatin 10 mg tablet 10 mg PO DAILY 12/01/22 05/16/24 History zolpidem 10 mg tablet 10 mg PO DAILY 12/01/22 05/16/24 History tizanidine 4 mg tablet 4 mg PO DAILY 05/12/24 05/16/24 History doxycycline hyclate 100 mg tablet 100 mg PO BID 7 days #14 tabs 05/14/24 05/16/24 Rx furosemide 20 mg tablet (Lasix) 20 mg PO DAILY PRN edema #7 tabs 05/14/24 05/16/24 Rx metoprolol succinate 50 mg 50 mg PO BID #0 tabs 05/14/24 05/16/24 Rx tablet,extended release 24 hr Allergies Allergy/AdvReac Type Severity Reaction Status Date / Time clarithromycin Allergy Severe Rash Verified 12/01/22 14:27 moxifloxacin (From Avelox) Allergy Severe tongue Verified 12/01/22 14:27 swelling Sulfa (Sulfonamide Allergy Unknown Verified 12/01/22 14:27 Antibiotics) ciprofloxacin (From Cipro) Allergy Rash Verified 12/01/22 14:27 Exam Constitutional Vital Signs, click to edit/add: Last Vital Signs Temp 98.0 F 05/17/24 11:38 Pulse 92 H 05/17/24 14:00 Resp 18 05/17/24 11:38 BP 110/71 05/17/24 11:38 Pulse Ox 97 05/17/24 11:38 O2 Del Method Room Air 05/17/24 11:38 Documenting provider has reviewed patient's vital signs: yes Common normals: no apparent distress, oriented x3 and alert HENMT Common normals: normocephalic Eye Common normals: PERRL and EOMs intact bilaterally Respiratory Common normals: normal respiratory effort and clear to auscultation bilaterally Cardio Common normals: regular rate, regular rhythm, no gallops, no murmurs and no rub GI Common normals: Normal to inspection, nondistended, normoactive bowel sounds present and non-tender Extremity Common normals: no pedal edema Results Labs Labs: Short CBC 05/16/24 05/17/24 Range/Units 17:20 05:54 WBC 11.0 7.6 (4.0-11.0) 10^3/uL Hgb 14.5 13.3 (12.0-16.0) g/dL Hct 42.1 39.2 (36.0-48.0) % Plt Count 198 204 (150-450) 10^3/uL BMP 05/16/24 05/17/24 17:20 05:54 Sodium 137 143 Potassium 4.0 3.5 Chloride 98 106 Carbon Dioxide 28.6 30.0 BUN 33.0 H 21.0 H Creatinine 1.27 H 1.04 H Glucose 97 127 H Calcium 9.1 8.8 Liver Function 05/16/24 05/17/24 Range/Units 17:20 05:54 Total Bilirubin 1.1 H 1.2 H (0.2-1.0) mg/dL AST 39 H 27 (15-37) U/L ALT 26 19 (14-59) U/L Alkaline Phosphatase 112 102 (46-116) U/L Albumin 3.2 L 2.9 L (3.4-5.0) g/dL Urine 05/16/24 Range/Units 17:25 Urine Color Lt. yellow (YELLOW) Urine Clarity Clear (CLEAR) Urine pH 5.5 (5.0-9.0) Ur Specific [place] 1.010 (1.005-1.025) Urine Protein Negative (NEG/TRACE) mg/dL Urine Glucose (UA) Negative (NEGATIVE) mg/dL Assessment and Plan Assessment and Plan (1) Generalized weakness: (2) Fall: (3) Benign essential hypertension: (4) Chronic heart failure with preserved ejection fraction (HFpEF): Plan Presented with weakness but normal work up. No evidence of pneumonia or fluid overload. Resume home medication. Start PT/OT for weakness. Patient remains observation status.
--- NOTE | 2024-05-17 15:08 | CM.NOTE ---
Assisted pt with setting up ervin and Mychart on her telephone. Answered pt questions regarding CHF, pt does have scale at home and understands daily weights. Recording weights to take to appointments or notify MD if significant weight increase. Pt understands fluid intake and limitations set by doctor. Went over medications and reasons for taking.
--- NOTE | 2024-05-17 15:48 | SWNOTE1 ---
AMARA spoke to pt about recommendation of a new walker. SW let her know unsure if has qualifying diagnosis, but SW will try. AMARA spoke to [facility] and pt would have to pay out of pocket. AMARA spoke with Gilda at [facility] and they will run through insurance and stated weakness and degenerative disc disease should qualify. AMARA sent script, H&P, and Pt note to [facility].
[2024-05-17] MEDS: ZOLPIDEM TARTRATE 10 MG TABLET PO (22:24)
[2024-05-17] MEDS: NORTRIPTYLINE HCL 25 MG CAPSULE 30 MG PO (22:25)
[2024-05-18] VITALS (9 sets, daily range): BP systolic 113–147; BP diastolic 61–71; PULSE 66–88; TEMP 36.4–36.5; O2SAT 94–95
[2024-05-18 06:46] LABS: Basophils Percent Auto 0.3 % (0.2-2.0); Eosinophils Absolute Auto 0.1 10^3/uL (0.0-0.7); Eosinophils Percent Auto 1.4 % (0.9-7.0); Hematocrit 36.9 % (36.0-48.0); Hemoglobin 12.6 g/dL (12.0-16.0); Immature Granulocytes Abs Auto 0.03 10^3/uL (0.00-0.03); Immature Granulocytes Pct Auto 0.3 % (0.0-0.5); Lymphocytes Absolute Auto 3.2 10^3/uL (1.2-3.8); Lymphocytes Percent Auto 32.8 % (20.5-60.0); Mean Corpuscular HGB Conc 34.1 g/dL (29.9-35.2); Mean Corpuscular Hemoglobin 32.9 pg (26.7-34.0); Mean Corpuscular Volume 96.3 fL (81.0-99.0); Mean Platelet Volume 10.8 fL (9.5-13.5); Monocytes Absolute Auto 1.2 10^3/uL (0.3-0.8); Monocytes Percent Auto 12.3 % (1.7-12.0); Neutrophils Absolute Auto 5.1 10^3/uL (1.4-6.5); Neutrophils Percent Auto 52.9 % (43.0-75.0); Platelet Count 194 10^3/uL (150-450); Red Blood Count 3.83 10^6/uL (4.20-5.40); Red Cell Distribution Width 13.4 % (11.0-15.0); White Blood Count 9.6 10^3/uL (4.0-11.0)
[2024-05-18 07:25] LABS: Alanine Aminotransferase 20 U/L (14-59); Albumin Globulin Ratio 0.8; Albumin Level 2.7 g/dL (3.4-5.0); Alkaline Phosphatase 96 U/L (46-116); Anion Gap 12.5; Aspartate Amino Transferase 24 U/L (15-37); BUN Creatinine Ratio 18.6; Bilirubin Total 0.7 mg/dL (0.2-1.0); Calcium 8.9 mg/dL (8.5-10.1); Carbon Dioxide 27.3 mmol/L (21.0-32.0); Chloride 106 mmol/L (98-107); Estimated GFR (African America 57 (>=60 mL/min/1.73m^2); Estimated GFR (Non-African Ame 47 (>=60 mL/min/1.73m^2); Globulin 3.5 g/dL; Glucose 151 mg/dL (74-106); Potassium 3.8 mmol/L (3.5-5.1); Sodium 142 mmol/L (136-145); Total Protein 6.2 g/dL (6.4-8.2)
[2024-05-18] MEDS: GABAPENTIN 300 MG CAPSULE PO (08:25)
[2024-05-18] MEDS: ATORVASTATIN CALCIUM 10 MG TABLET PO (08:25)
[2024-05-18] MEDS: ENOXAPARIN SODIUM 40 MG/0.4 ML SYRINGE SUBQ (08:25)
[2024-05-18] MEDS: ALPRAZOLAM 0.25 MG TABLET PO (08:26)
[2024-05-18] MEDS: OMEPRAZOLE 40 MG CAPSULE.DR PO (08:26)
[2024-05-18] MEDS: DOXYCYCLINE MONOHYDRATE 100 MG CAPSULE PO (08:26)
[2024-05-18] MEDS: FUROSEMIDE 20 MG TABLET PO (08:26)
[2024-05-18] MEDS: ACETAMINOPHEN 325 MG TABLET 650 MG PO (08:26)
[2024-05-18] MEDS: METOPROLOL SUCCINATE 50 MG TAB.ER.24H PO (08:26)
--- NOTE | 2024-05-18 10:19 | P.DS_ITS ---
DS: Providers Provider Date of admission: 05/16/24 19:29 Primary care physician: REJI FORRESTER Consults: 05/17/24 Occupational Therapy Eval and Treat Routine Reason for consultation: weakness Physical Therapy Eval and Treat Routine Reason for consultation: weakness DS: Diagnosis Discharge Diagnosis (1) Generalized weakness: (2) Fall: (3) Benign essential hypertension: (4) Chronic heart failure with preserved ejection fraction (HFpEF): Plan (1) Generalized weakness: (2) Fall: (3) Benign essential hypertension: (4) Chronic heart failure with preserved ejection fraction (HFpEF): DS: Summary Status at Discharge Overall status at discharge: patient is not back to baseline Time Spent with Patient Time attestation: Total time spent providing and/or coordinating discharge services: Time spent: greater than 30 minutes Exam Constitutional Vital Signs, click to edit/add: Last Vital Signs Temp 97.6 F 05/18/24 07:39 Pulse 81 05/18/24 09:56 Resp 18 05/18/24 07:39 BP 147/71 H 05/18/24 07:39 Pulse Ox 95 05/18/24 07:39 O2 Del Method Room Air 05/18/24 07:39 DS: Data Data Completed and Pending Labs on day of discharge: Labs from last 24 hours 05/18/24 06:32 WBC 9.6 RBC 3.83 L Hgb 12.6 Hct 36.9 MCV 96.3 MCH 32.9 MCHC 34.1 RDW 13.4 Plt Count 194 MPV 10.8 Neut % (Auto) 52.9 Lymph % (Auto) 32.8 [place] % (Auto) 12.3 H Eos % (Auto) 1.4 Baso % (Auto) 0.3 Neut # (Auto) 5.1 Lymph # (Auto) 3.2 [place] # (Auto) 1.2 H Eos # (Auto) 0.1 Baso # (Auto) 0.0 Abs Immat Gran (auto) 0.03 Imm/Tot Granulo (auto) 0.3 Sodium 142 Potassium 3.8 Chloride 106 Carbon Dioxide 27.3 Anion Gap 12.5 BUN 21.0 H Creatinine 1.13 H Est GFR ( Amer) 57 L Est GFR (Non-Af Amer) 47 L BUN/Creatinine Ratio 18.6 Glucose 151 H Calcium 8.9 Total Bilirubin 0.7 AST 24 ALT 20 Alkaline Phosphatase 96 NT-Pro-B Natriuret Pep 466.0 Total Protein 6.2 L Albumin 2.7 L Globulin 3.5 Albumin/Globulin Ratio 0.8 Discharge Plan Discharge Disposition: Home, Self-Care Condition: Good Discharge Medications: Continued alprazolam 0.25 mg tablet 0.25 mg PO BID PRN (Reason: anxiety) gabapentin 300 mg capsule 300 mg PO BID hydrocodone-acetaminophen 5-325 mg tablet 1 tab PO Q6H PRN (Reason: pain) meloxicam 15 mg tablet 15 mg PO DAILY nortriptyline 10 mg capsule 30 mg PO BEDTIME pantoprazole 40 mg tablet,delayed release (DR/EC) 40 mg PO DAILY simvastatin 10 mg tablet 10 mg PO DAILY zolpidem 10 mg tablet 10 mg PO DAILY tizanidine 4 mg tablet 4 mg PO DAILY doxycycline hyclate 100 mg tablet 100 mg PO BID 7 Days Qty: 14 0RF furosemide [Lasix] 20 mg tablet 20 mg PO DAILY PRN (Reason: edema) Qty: 7 0RF metoprolol succinate 50 mg tablet extended release 24 hr 50 mg PO BID Qty: 0 0RF Print Language: Singaporean Draft Roller Picker/Boat Detailer Instructions: [facility] at discharge. Phone number is [phone]. They should contact within 48 hours of discharge Forms: Portal Instructions
--- NOTE | 2024-05-18 10:21 | PM.DS1 ---
DS: Providers Provider Date of admission: 05/16/24 19:29 Primary care physician: REJI FORRESTER Consults: 05/17/24 Occupational Therapy Eval and Treat Routine Reason for consultation: weakness Physical Therapy Eval and Treat Routine Reason for consultation: weakness DS: Diagnosis Discharge Diagnosis (1) Generalized weakness: (2) Fall: (3) Benign essential hypertension: (4) Chronic heart failure with preserved ejection fraction (HFpEF): Plan (1) Generalized weakness: (2) Fall: (3) Benign essential hypertension: (4) Chronic heart failure with preserved ejection fraction (HFpEF): DS: Summary Hospital Course Hospital Course: Recent diagnosis of pneumonia, having increasing weakness at home, was admitted to observational status for evaluation and possible progression of pneumonia, her white blood cell count remained stable, her kidney function is up slightly today, encourage p.o. intake, with the rest of her vital signs stable, she will be discharged to home in stable condition. Medications see list. See her PCP within the next week. Status at Discharge Overall status at discharge: patient is not back to baseline Time Spent with Patient Time attestation: Total time spent providing and/or coordinating discharge services: Time spent: greater than 30 minutes Exam Constitutional Vital Signs, click to edit/add: Last Vital Signs Temp 97.6 F 05/18/24 07:39 Pulse 81 05/18/24 09:56 Resp 18 05/18/24 07:39 BP 147/71 H 05/18/24 07:39 Pulse Ox 95 05/18/24 07:39 O2 Del Method Room Air 05/18/24 07:39 Documenting provider has reviewed patient's vital signs: yes Common normals: no apparent distress Chest Common normals: inspection of chest normal Respiratory Common normals: normal respiratory effort and no retractions Cardio Common normals: regular rate and regular rhythm GI Common normals: Normal to inspection, nondistended, normoactive bowel sounds present DS: Data Data Completed and Pending Labs on day of discharge: Labs from last 24 hours 05/18/24 06:32 WBC 9.6 RBC 3.83 L Hgb 12.6 Hct 36.9 MCV 96.3 MCH 32.9 MCHC 34.1 RDW 13.4 Plt Count 194 MPV 10.8 Neut % (Auto) 52.9 Lymph % (Auto) 32.8 [place] % (Auto) 12.3 H Eos % (Auto) 1.4 Baso % (Auto) 0.3 Neut # (Auto) 5.1 Lymph # (Auto) 3.2 [place] # (Auto) 1.2 H Eos # (Auto) 0.1 Baso # (Auto) 0.0 Abs Immat Gran (auto) 0.03 Imm/Tot Granulo (auto) 0.3 Sodium 142 Potassium 3.8 Chloride 106 Carbon Dioxide 27.3 Anion Gap 12.5 BUN 21.0 H Creatinine 1.13 H Est GFR ( Amer) 57 L Est GFR (Non-Af Amer) 47 L BUN/Creatinine Ratio 18.6 Glucose 151 H Calcium 8.9 Total Bilirubin 0.7 AST 24 ALT 20 Alkaline Phosphatase 96 NT-Pro-B Natriuret Pep 466.0 Total Protein 6.2 L Albumin 2.7 L Globulin 3.5 Albumin/Globulin Ratio 0.8 Discharge Plan Discharge Disposition: Home, Self-Care Condition: Good Discharge Medications: Continued alprazolam 0.25 mg tablet 0.25 mg PO BID PRN (Reason: anxiety) gabapentin 300 mg capsule 300 mg PO BID hydrocodone-acetaminophen 5-325 mg tablet 1 tab PO Q6H PRN (Reason: pain) meloxicam 15 mg tablet 15 mg PO DAILY nortriptyline 10 mg capsule 30 mg PO BEDTIME pantoprazole 40 mg tablet,delayed release (DR/EC) 40 mg PO DAILY simvastatin 10 mg tablet 10 mg PO DAILY zolpidem 10 mg tablet 10 mg PO DAILY tizanidine 4 mg tablet 4 mg PO DAILY doxycycline hyclate 100 mg tablet 100 mg PO BID 7 Days Qty: 14 0RF furosemide [Lasix] 20 mg tablet 20 mg PO DAILY PRN (Reason: edema) Qty: 7 0RF metoprolol succinate 50 mg tablet extended release 24 hr 50 mg PO BID Qty: 0 0RF Activity: increase activity as tolerated Diet: advance to your usual diet Print Language: Malagasy Patient Instructions: Nelsy (DC) Taker [employer]/Administrative Medical Director Instructions: [facility] at discharge. Phone number is [phone]. They should contact within 48 hours of discharge Forms: Portal Instructions Follow Up Appointments: Please call Dr Forrester's office on Monday to schedule a follow up appt [phone] Discharge Date/Time: 05/18/24 12:23
--- NOTE | 2024-05-18 10:24 | PT.DAILY ---
Physical Therapy Daily Note PT Daily Note/Assess Start: 05/18/24 10:15 Freq: Status: Active Protocol: Document 05/18/24 10:15 [id number] (Rec: 05/18/24 10:23 [id number]) Physical Therapy Daily Note/Assessment Time In/Time Out Time In 09:01 Time Out 09:12 Pain In Pain Level 8 Pain Out Pain Level 8 Subjective Subjective Patient received supine in bed, no alarm. Reports pain is to the low back. Patient agreeable to participate with PT. Therapeutic Exercise Time Therapeutic Exercise 3 Minutes (minutes) Therapeutic Exercise 0 Units Therapeutic Exercise Treatment Therapeutic Exercise Standing at 2WW patient performed RON LE marching and Treatment hip flexion x 10 reps each. Patient request to sit due to fatigue and pain. Patient performed RON LE ankle pumps, LAQ's, resisted hip ABD/ADD x 10 reps. Therapeutic Activity Time Therapeutic Activity 8 Minutes (minutes) Therapeutic Activity 1 Units Therapeutic Activity Treatment Bed Mobility Ability Contact Guard Assist,Minimum Assist Chair Transfer Contact Guard Assist Ability Therapeutic Activity Supine> L sitting with use of L bed rail and MIN A +1 Comments for upper body management into upright position. Patient is able to scoot to EOB with CGA +1. No LOB while seated EOB with one UE support. Sit>stand to 2WW CGA +1 with safe hand placement. Patient ambulated ~ 15' x 1 with CGA +1, demonstrates WBOS and shortened step length. Patient performed standing ther ex for marching and hip flexion prior to requesting to sit due to LBP and fatigue. Patients needs meet and CBWR. Total Physical Therapy Time Total Therapy 11 Minutes Total Physical 1 Therapy Units Summary Daily Note Summary Patient able to perform RON LE marching and hip flexion in standing before requiring to sit due to increased pain and fatigue. Patient limited due to fatigue and weakness and would benefit from PT to address functional deficits for return to PLOF.
--- NOTE | 2024-05-20 15:30 | CM.DCFOLLOWU ---
Person spoke with: Usha How are you feeling? Still weak How is your pain? No pain Did you understand your discharge instructions? Yes Do you have any questions about your discharge instructions? No Were you given any prescriptions at discharge? No Were you able to get your prescriptions filled? N/A Do you understand how to take your medications as ordered? Yes Do you have any questions about your follow up appointment and do you plan to keep your follow up appointment? No questions I will go to my follow up Is there anything else that you would like to discuss? No Questions/Comments/Concerns/Other:
== END 2024-05-18 12:23 | disposition home health service (06) ==
LOC: ER 19:29 → MS 05-17 09:00
PROVIDERS: Physician Assistant; Registered Nurse; Admitting Provider Family Medicine; Emergency Provider Emergency Medicine; PCP Internal Medicine; Visit Provider Family Medicine
DX: R53.1 Weakness (principal); I11.0 Hypertensive heart disease with heart failure; I50.32 Chronic diastolic (congestive) heart failure; Z91.81 History of falling; Z87.01 Personal history of pneumonia (recurrent); Z96.661 Presence of right artificial ankle joint; Z96.641 Presence of right artificial hip joint; Z96.653 Presence of artificial knee joint, bilateral
CPT/HCPCS: 36415; 70450; 71045; 80048; 80053; 81001; 83605; 83880; 84443; 84484; 85025; 85610; 87420; 87804; 87811; 93005; 94640; 94667; 94668; 94761; 96365; 96372; 97162; 97165; 97530; 99285; G0378; J1650; J3475

== ENCOUNTER 2024-06-09 12:14 | Emergency (ER) | payer MEDICARE, OTHER, SELFPAY ==
[2024-06-09] VITALS (10 sets, daily range): BP systolic 133; BP diastolic 62; PULSE 94–107; TEMP 37.2; O2SAT 94–99; BMI 45.5
--- OUTSIDE RECORDS SUMMARY | 2024-06-09 12:25 | XMS_ITS | CCD ---
Author Organization [facility] CliniSyme Care Team Providers Care Systems Design Engineer Name Role Phone Tasia Bird Unavailable Unavailable Unavailable Unavailable Unavailable TRA Cotto, SASHA Consulting Unavailable TRA ., SASHA Admitting Unavailable USAMA, DR MENDOZA Primary Care Unavailable TRA ., SASHA Attending Unavailable HATTIE OH Consulting Unavailable USAMA, DR MENDOZA Attending Unavailable USAMA, DR MENDOZA Consulting Unavailable USAMA, DR MENDOZA Primary Care Unavailable USAMA, DR MENDOZA Admitting Unavailable LISA CABALLERO V Consulting Unavailable CHANTAL ., DR WHIPPLE Attending Unavailable HAY ., DR WHIPPLE Admitting Unavailable USAMA, DR MENDOZA Primary Care Unavailable ISAEL HANSEN Consulting Unavailable ROXANN KERR Consulting Unavailab harjinder Steele II, Dr. Roc Lerma Primary Care Catina sarah Canchola, Dr. Taniya Briscoe Attending U Roc Wellington MD Unavailable [phone] Roc Steele MD Primary Care Provider Roc Steele MD Unavailable [phone] Waqas Dugan DO Unavailable [phone] Mala Sapp Attending UnavailMala Kenney Admitting UnavailRoc [facility] Unavailable KAMILA CASTILLO Attending Unavailable KELSI TAMOLAS A Attending Unavailable KELSI TAMOLAJosué Arvizu Attending Unavailable ZOYA TAMS A Attending Unavailable BIGGALEXIRI Ren Attending Unavailable KELSI TAMOLAS A Attending Unavailable BIGGALEXI BATESRI Ren Attending Unavailable KELSI TAMOLAS A Attending Unavailable ALEXI CASTILLORI M Attending Unavailable KELSI TAMOLAS A Attending Unavailable BIGGALEXI BATESRI M Attending Unavailable SAYDA ALEX A Attending Unavailable KELSI TAMOLAS A Attending Unavailable KAMILA CASTILLO Attending Unavailable WAQAS DUGAN Attending Unavailable ALEXI CASTILLORI Ren Referring Unavailable KAMILA CASTILLO Attending Unavailable BIGG, KAMILA M Referring Unavailable KAMILA CASTILLO Attending Unavailable KAMILA CASTILLO Attending Unavailable Allergies Allergy Classification Reported Allergen(s) Allergy Type Date of Onset Reaction(s) Facility Macrolides (antibiotic) (6 sources) Clarithromycin; Translations: [clarithromycin] Drug Allergy Unknown [facility] Work Phone: Quinolones (antibiotic) (18 sources) moxifloxacin; Translations: [moxifloxacin] Drug Allergy Anaphylaxis, Unknown [facility] Work Phone: (20 sources) Ciprofloxacin; Translations: [ciprofloxacin] Drug Allergy 3 Unknown [facility] (20 sources) Clarithromycin; Translations: [clarithromycin] Drug Allergy 3 Unknown [facility] Repository (4 sources) moxifloxacin; Translations: [Avelox] Drug Allergy 3 Anaphylaxis [facility] Repository (20 sources) moxifloxacin; Translations: [moxifloxacin] Drug Allergy 3 Anaphylaxis [facility] Work Phone: (1 source) Ciprofloxacin Drug Allergy 3 [facility] Repository (1 source) Sulfonamides (Antibiotic) Drug allergy (disorder) 3 [facility] Repository (20 sources) Sulfanilamide Allergy to substance 3 [facility] Medications Current Medications Medication Drug Class(es) Dates Sig (Normalized) Sig (Original) acetaminophen 325 mg / HYDROcodone bitartrate 5 mg oral tablet (12 sources) Opioid Agonist Start: 02-29-2024 End: 05-03-2024 take 1 tablet by mouth every four hours for pain HYDROcodone-acetam inophen (Samburg) 5-325 MG tablet Indications: Lumbosacral spondylosis without [...] Dihydropyridine Calcium Channel Shaina Start: 10-17-2022 End: 05-22-2024 take 1 tablet by mouth once daily amLODIPine (Norvasc) 5 MG tablet Indications: Benign essential hypertension (CMS/HCC) Take 1 tablet (5 mg) by mouth Daily 90 tablet 3 01/29/2024 05/22/2024 Discontinued (Therapy completed) amoxicillin 500 mg oral capsule (5 sources) Penicillin-class Antibacterial Start: 05-18-2023 End: 06-08-2023 take 4 tablets by mouth every hour amoxicillin (Amoxil) 500 MG capsule Indications: Onychomycosis Take all 4 tablets 1 hour by mouth prior to procedure. 4 capsule 1 05/18/2023 Active benzonatate 100 mg oral capsule (3 sources) Non-narcotic Antitussive Start: 04-29-2024 benzonatate (Tessalon) 100 MG capsule TAKE 1 CAPSULE BY MOUTH TWICE DAILY to THREE TIMES DAILY NEEDED FOR COUGH for 5 (FIVE) days 04/29/2024 Active calcium carbonate 1500 mg / cholecalciferol [...] mg oral tablet (20 sources) Muscle Relaxant End: 05-22-2024 take 1 tablet by mouth three times daily as needed for muscle spasms cyclobenzaprine (Flexeril) 10 MG tablet Take 10 mg by mouth 3 (three) times a day as needed for muscle spasms. 05/22/2024 Discontinued (Therapy completed) docusate sodium 100 mg oral capsule (5 sources) docusate sodium (Colace) 100 MG capsule 1 (one) time each day at the same time. 0 Active doxycycline hyclate 100 mg oral tablet (6 sources) Tetracycline-c lass Drug Start: 05-07-2024 End: 05-17-2024 doxycycline (Vibra-Tabs) 100 MG tablet Indications: Bronchitis Take 1 tablet (100 mg) by mouth in the morning and 1 tablet (100 mg) before bedtime. Do all this for 10 days. Take with a full glass of water and do not lie down for at least 30 minutes after.. 20 tablet 05/07/2024 05/17/2024 Active furosemide 20 mg oral tablet (8 sources) Loop Diuretic Start: 04-04-2024 End: 05-15-2024 take 1 tablet by mouth once daily furosemide (Lasix) 20 MG tablet Indications: Acute pulmonary edema (CMS/HCC) Take 1 tablet (20 mg) by mouth Daily for 7 days 7 tablet 04/04/2024 05/15/2024 Discontinued (Therapy completed) gabapentin 300 mg oral capsule (20 sources) Anti-epileptic Agent Start: 08-08-2023 take 1 capsule by mouth twice daily [...] oral tablet (20 sources) beta-Adrenergic Shaina Start: 05-22-2024 take 1 tablet by mouth every twenty-fou r hours in the morning metoprolol succinate XL (Toprol-XL) 50 MG 24 hr tablet Indications: Benign essential hypertension (CMS/HCC) Take 1 tablet (50 mg) by mouth in the morning and 1 tablet (50 mg) before bedtime. 90 tablet 3 05/22/2024 Active Start: 05-22-2024 take 1 tablet by lori th every twenty-four hours in the morning metoprolol succinate XL (Toprol-XL) 50 MG 24 hr tablet Indications: Benign essential hypertension (CMS/HCC) Take 1 tablet (50 mg) by mouth in the morning and 1 tablet (50 mg) before bedtime. 90 tablet 3 05/22/2024 Active Start: 08-08-2023 End: 05-22-2024 take 1 tablet by mouth once daily metoprolol succinate XL (Toprol-XL) 50 MG 24 hr tablet Indications: Benign essential hypertension (CMS/HCC) TAKE 1 TABLET BY MOUTH ONCE DAILY 90 tablet 3 08/08/2023 05/22/2024 Discontinued (Reorder) take 1 tablet by mouth once [place] [...] supraventricular tachycardia] Onset: 3 09-30-2022 Chronic Chronic kidney disease (2 sources) Chronic kidney disease stage 3B ; Translations: [Stage 3b chronic kidney disease (HCC) (CMS/HCC)] 05-22-2024 Chronic Chronic obstructive pulmonary disease and bronchiectasis [...] insomnia; Translations: [Primary insomnia] 04-15-2024 Chronic Mycoses (2 sources) Pain in toe; Translations: [Tinea unguium] 02-19-2024 [...] 3 Chronic Other aftercare (1 source) Other fdc (current) drug therapy; Translations: [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] Onset: 3 Episodic Other [...] index (BMI) 45.0-49.9, adult] 05-07-2024 Chronic Other nutritional; endocrine; and metabolic disorders (2 sources) Hypomagnesemia; Translations: [Hypomagnesemia] 05-22-2024 Chronic Other screening for suspected conditions (not [...] caused by tuberculosis or sexually transmitted disease) (6 sources) Bilateral pneumonia; Translations: [Pneumonia, unspecified organism] [...] Results Test Name Value Interpretation Reference Range [facility] METABOLIC PANE [facility] 05-23-2024 Albumin [Mass/Vol] 3.6 g/dL Normal 3.6-5.1 [facility] Comment on above: Performed By: #### 622, [id number] #### [facility] [place] [phone] Shirt Maker: Bryce Larsen MD Albumin/Globulin [Mass ratio] 1.3 {ratio} Normal 1.0-2.5 [facility] Comment on above: Performed By: #### 622, 89570 #### [facility] [address] [address] Shirt Maker: Bryce Larsen MD ALP [Catalytic activity/Vol] 87 U/L Normal 37-153 [facility] Comment on above: Performed By: #### 622, 55858 #### [facility] [address] [place] [address] Shirt Maker: Bryce Larsen MD ALT [Catalytic activity/Vol] 15 U/L Normal 6-29 [facility] Comment on above: Performed By: #### 622, 01124 #### [facility] [place] [address] Shirt Maker: Bryce Larsen MD AST [Catalytic activity/Vol] 31 U/L Normal 10-35 [facility] Comment on above: Performed By: #### 622, 68976 #### [facility] [place] [address] Shirt Maker: Bryce Larsen MD Bilirubin [Mass/Vol] 0.5 mg/dL Normal 0.2-1.2 [facility] Comment on above: Performed By: #### 622, 79320 #### [facility] [place] [address] Shirt Maker: Bryce Larsen MD Calcium [Mass/Vol] 9.1 mg/dL Normal 8.6-10.4 [facility] Comment on above: Performed By: #### 622, 46437 #### [facility] [place] [address] Shirt Maker: Bryce Larsen MD Chloride [Moles/Vol] 103 mmol/L Normal 98-110 [facility] Comment on above: Performed By: #### 622, 86091 #### [facility] [place] [address] Shirt Maker: Bryce Larsen MD CO2 [Moles/Vol] 27 mmol/L Normal 20-32 [facility] Comment on above: Performed By: #### 622, 93733 #### [facility] [place] [address] Shirt Maker: Bryce Larsen MD Creatinine [Mass/Vol] 1.04 mg/dL High 0.60-1.00 [facility] Comment on above: Performed By: #### 622, 63912 #### [facility] [place] [address] Shirt Maker: Bryce Larsen MD GFR/1.73 sq M.predicted among non-blacks MDRD (S/P/Bld) [Vol rate/Area] 55 mL/min/{1.73_m2} Low > OR = 60 [facility] Comment on above: Performed By: #### 622, 73837 #### [facility] [place] [address] Shirt Maker: Bryce Larsen MD Globulin (S) [Mass/Vol] 2.7 g/dL Normal 1.9-3.7 [facility] Comment on above: Performed By: #### 622, 52243 #### [facility] [place] [address] Shirt Maker: Bryce Larsen MD Glucose [Mass/Vol] 73 mg/dL Normal 65-139 [facility] Comment on above: Result Comment: Non-fasting reference interval Performed By: #### 6 22, 28992 #### [facility] [place] [address] Shirt Maker: Bryce Larsen MD Potassium [Moles/Vol] 4.7 mmol/L Normal 3.5-5.3 [facility] Comment on above: Performed By: #### 622, 79969 #### [facility] [place] [address] Shirt Maker: Bryce Larsen MD Protein [Mass/Vol] 6.3 g/dL Normal 6.1-8.1 [facility] Comment on above: Performed By: #### 622, 71756 #### [facility] [place] [address] Shirt Maker: Bryce Larsen MD Sodium [Moles/Vol] 137 mmol/L Normal 135-146 [facility] Comment on above: Performed By: #### 622, 28995 #### [facility] of [address] [address] Shirt Maker: Bryce Larsen MD Urea nitrogen [Mass/Vol] 15 mg/dL Normal 7-25 [facility] Comment on above: Performed By: #### 622, 82786 #### [facility] [address], [address] [place] [address] Shirt Maker: Bryce Larsen MD Urea nitrogen/Creatin ine [Mass ratio] 14 mg/mg Normal 6-22 [facility] Comment on above: Performed By: #### 622, 75795 #### [facility] [address], [address] [place] [address] Shirt Maker: Bryce Larsen MD MAGNESIUMon 05-23-2024 Magnesium [Mass/Vol] 1.9 mg/dL Normal 1.5-2.5 [facility] Comment on above: Order Comment: FASTING:NO FASTING: NO Performed By: #### 6 22, 72114 #### [facility] [address], [address] [place] [address] Shirt Maker: Bryce Larsen MD ALL BASIC METABOLIC PANELon 05-16-2024 Anion gap [Moles/Vol] 12 mmol/L [facility] Calcium [Mass/Vol] 9 mg/dL 8.5 - 10.1 mg/dL [facility] Chloride [Moles/Vol] 98 mmol/L 98 - 107 mmol/L [facility] CO2 [Moles/Vol] 29.6 mmol/L 21.0 - 32.0 mmol/L [facility] Creatinine [Mass/Vol] 1.42 mg/dL High 0.55 - 1.02 mg/dL [facility] GFR/1.73 sq M.predicted CKD-EPI (S/P/Bld) [Vol rate/Area] 43 Low >=60 mL/min/1.73 m 2 [facility] Glucose [Mass/Vol] 74 mg/dL 74 - 106 mg/dL [facility] Interpretation and review of laboratory results Abnormal [facility] Potassium [Moles/Vol] 3.6 mmol/L 3.5 - 5.1 mmol/L [facility] Sodium [Moles/Vol] 136 mmol/L 136 - 145 mmol/L [facility] TBH EGFR-NON AF CUBAN 36 Low >=60 mL/min/1.73 m 2 [facility] Urea nitrogen [Mass/Vol] 36 mg/dL High 7.0 - 18.0 mg/dL [facility] Urea nitrogen/Creatin ine [Mass ratio] 25.4 mg/mg [facility] XR chest 2V*on 04-29-2024 XR chest 2V* [facility] [place] [address] [place], [place] [id number] XRay Report Signed Patient: Luma Ribeiro MR#: [id number] : 1945 Acct:[id number] Age/Sex: 78 / F ADM Date: 04/29/24 Loc: XDUCLY Room: Type: [facility] 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 APRN Copies [...] R Christopher M.D.04/29/2024 4:00 PM Dictation Location: [facility]--19 Transcribed By: [facility] 04/29/24 1600 Dictated By: Jose R Christopher DO 04/29/24 1559 Signed By: 04/29/24 1600 Normal [facility] XR CHEST 2 VIEWSon [...] Not Available Comment on above: Order Comment: Include hand and wrist EMG 1 Extremeityon [facility] NVC 7-8 Nerveson 03-07-2024 [facility] Established Visit (Orthopaed ic Surgery)on 10-04-2022 Established [...] Complaint RT shoulder Ongoing issue 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 Distal pulses and sensation are intact. Limited forward flexion to about 25 degrees lateral abduction to about 15 unable to perform any external rotation but internal he can get to the small of her back. Her exam does not allow for much of a true Neer's Shelby or Pettis's test. Diagnostics: See dictated report from today, previous outside CT scan report of the humerus reviewed, and is available in the [facility] chart. 1 Procedure: None Assessment: Chronic [...] the patient's CT scan report reviewed in [facility] chart Other 1 than the anterior [...] grammatical areas may persist related to the [employer] software (more content not included)... Normal [facility] Radiologyon 10-04-2022 XR Shoulder 2 Views Normal [facility] Work Phone: SHOULDER, CMPLT, MIN 2 VIEWS on 10-04-2022 SHOULDER, CMPLT, MIN 2 VIEWS Patient Name: LUMA RIBEIRO STUDY: SHOULDER, CMPLT, MIN 2 VIEWS; Right; 10/04/2022 1:49 pm INDICATION: pain M25.519: Shoulder pain. ACCESSION NUMBER(S): [id number] ORDERING CLINICIAN: TANIYA CANCHOLA FINDINGS: Multiple views [...] Electronically signed by: TANIYA CANCHOLA MD Normal [facility] CT HUMERUS RIGHT W/O CONTRAS Minesh 09-12-2022 CT HUMERUS RIGHT W/O CONTRAST History: [...] by Pernell Wiley on 09/12/2022 1127 [facility] XR Chest 2 Views*on 09-13-19 XR Chest 2 Views* HISTORY: Recent fall, right rib pain. COMPARISON: None. FINDINGS: The lungs are symmetrically inflated. No focal airspace disease. No pneumothorax or pleural effusion. Heart size is within normal limits. No displaced rib fracture or other acute osseous abnormality. There are degenerative changes in the spine. IMPRESSION: No displaced rib fracture or acute cardiopulmonary abnormality identified. Report reported and signed by Pernell Wiley on 09/12/2022 1101 Normal [facility] XR CHEST 2 Von 09-05-2022 XR [...] ISAEL HANSEN Date: 2022-09-05 15:11 Normal [facility] XR KUB 1 VIEWon 09-05-2022 XR KUB [...] ISAEL HANSEN Date: 2022-09-05 15:10 Normal [facility] AMYLASEon 09-03-2022 Amylase [Catalytic activity/Vol] 34 U/L Normal 25-115 [facility] Comment on above: Performed By: #### LIPA, CMP, CMADM, BNP , GRACIELA #### [facility] [address] [place] [address] [address] Yonny Meza BNPon 09-03-2022 Natriuretic peptide B (Bld) [Mass/Vol] 241.0 pg/mL Normal <=1,800.0 [facility] Comment on above: Performed By: #### LIPA, CMP, CMADM, BNP , GRACIELA #### [facility] [address] [place] [address] [address] Yonny Meza CARDIAC SRINIVASA ADMITon 023 CK [Catalytic activity/Vol] 154 U/L Normal 26-192 [facility] Comment on above: Performed By: #### LIPA, CMP, CMADM, BNP , GRACIELA #### [facility] [address] [place] [address] [address] Yonny Meza CK.MB [Mass/Vol] 1.42 ng/mL Normal <=3.60 [facility] Comment on above: Performed By: #### LIPA, CMP, CMADM, BNP , GRACIELA #### [facility] [address] [place] [address] Dr. Yonny Meza HSTROP 13.9 pg/mL Normal 4.0-51.3 [facility] Comment on above: Result Comment: CUT-OFF POINTS HAVE BEEN ESTABLISHED BASED ON THE FOURTH UNIVERSAL DEFINITIONS OF MYOCARDIAL INFARCTION. THE UPPER REFERENCE LIMIT (URL) OF TROPONIN, DEFINED THE 99TH PERCENTILE OF cTnI DISTRIBUTION IN A REFERENCE POPULATION, HAS BEEN CONFIRMED THE DECISION THRESHOLD FOR SD DIAGNOSIS. Performed By: #### L IPA, CMP, CMADM, BNP, GRACIELA #### [facility] [address] [place] [address] Dr. Yonny Meaz DARION 63 ng/mL Normal 9-82 [facility] Comment on above: Performed By: #### LIPA, CMP, CMADM, BNP , GRACIELA #### [facility] [address] [place] [address] Dr. Yonny Meza CBC AUTO DIFFon 09-03-2022 BASO # 0.0 103/ul Normal 0.0-0.1 [facility] Comment on above: Performed By: #### LIPA, CMP, CMADM, BNP , GRACIELA #### [facility] [address] [place] [address] Dr. Yonny Meza Basophils/100 WBC (Bld) 0.4 % Normal 0.2-2.0 [facility] Comment on above: Performed By: #### LIPA, CMP, CMADM, BNP , GRACIELA #### [facility] [address] [place] [address] Dr. Yonny Meza EO # 0.1 103/ul Normal 0.0-0.7 [facility] Comment on above: Performed By: #### LIPA, CMP, CMADM, BNP , GRACIELA #### [facility] [address] [place] [address] Dr. Yonny Meza Eosinophils/100 WBC (Bld) 1.6 % Normal 0.9-7.0 [facility] Comment on above: Performed By: #### LIPA, CMP, CMADM, BNP , GRACIELA #### [facility] [address] [place] [address] Dr. Yonny Meza Erythrocyte distribution width (RBC) [Ratio] 12.6 % Normal 11.0-15.0 [facility] Comment on above: Performed By: #### LIPA, CMP, CMADM, BNP , GRACIELA #### [facility] [address] [place] [address] Dr. Yonny Meza Hematocrit (Bld) [Volume fraction] 38.9 % Normal 36.0-48.0 [facility] Comment on above: Performed By: #### LIPA, CMP, CMADM, BNP , GRACIELA #### [facility] [address] [place] [address] Dr. Yonny Meza Hemoglobin (Bld) [Mass/Vol] 13.0 g/dL Normal 12.0-16.0 [facility] Comment on above: Performed By: #### LIPA, CMP, CMADM, BNP , GRACIELA #### [facility] [address] [place] [address] Dr. Yonny Meza IG # 0.02 10e3/ul Normal 0.00-0.03 [facility] Comment on above: Performed By: #### LIPA, CMP, CMADM, BNP , GRACIELA #### [facility] [address] [place] [address] Dr. Yonny Meza IG % 0.3 % Normal 0.0-0.5 [facility] Comment on above: Performed By: #### LIPA, CMP, CMADM, BNP , GRACIELA #### [facility] [address] [place] [address] Dr. Yonny Meza LYMPH # 2.0 103/ul Normal 1.2-3.8 [facility] Comment on above: Performed By: #### LIPA, CMP, CMADM, BNP , GRACIELA #### [facility] [address] [place] [address] Dr. Yonny Meza Lymphocytes/100 WBC (Bld) 25.3 % Normal 20.5-60.0 [facility] Comment on above: Performed By: #### LIPA, CMP, CMADM, BNP , GRACIELA #### [facility] [address] [place] [address] Dr. Yonny Meza MANUAL DIFF REQ NO Normal [facility] Comment on above: Performed By: #### LIPA, CMP, CMADM, BNP , GRACIELA #### [facility] [address] [place] [address] Dr. Yonny Meza MCH (RBC) [Entitic mass] 31.8 pg Normal 26.7-34.0 [facility] Comment on above: Performed By: #### LIPA, CMP, CMADM, BNP , GRACIELA #### [facility] [address] [place] [address] Dr. Yonny Meza MCHC (RBC) [Mass/Vol] 33.4 g/dL Normal 29.9-35.2 [facility] Comment on above: Performed By: #### LIPA, CMP, CMADM, BNP , GRACIELA #### [facility] [address] [place] [address] Dr. Yonny Meza MCV (RBC) [Entitic vol] 95.1 fL Normal 81.0-99.0 [facility] Comment on above: Performed By: #### LIPA, CMP, CMADM, BNP , GRACIELA #### [facility] [address] [place] [address] Dr. Yonny Meza MONO # 0.9 103/ul Critically high 0.3-0.8 [facility] Comment on above: Performed By: #### LIPA, CMP, CMADM, BNP , GRACIELA #### [facility] [address] [place] [address] Dr. Yonny Meza Monocytes/100 WBC (Bld) 11.5 % Normal 1.7-12.0 [facility] Comment on above: Performed By: #### LIPA, CMP, CMADM, BNP , GRACIELA #### [facility] [address] [place] [address] Dr. Yonny Meza NEUT # 4.8 103/ul Normal 1.4-6.5 [facility] Comment on above: Performed By: #### LIPA, CMP, CMADM, BNP , GRACIELA #### [facility] [address] [place] [address] Dr. Yonny Meza Neutrophils/100 WBC (Bld) 60.9 % Normal 43.0-75.0 [facility] Comment on above: Performed By: #### LIPA, CMP, CMADM, BNP , GRACIELA #### [facility] [address] [place] [address] Dr. Yonny Meza Platelet mean volume (Bld) [Entitic vol] 10.1 fL Normal 9.5-13.5 [facility] Comment on above: Performed By: #### LIPA, CMP, CMADM, BNP , GRACIELA #### [facility] [address] [place], [place] [address] Dr. Yonny Meza PLT 252 103/ul Normal 150-450 [facility] Comment on above: Performed By: #### LIPA, CMP, CMADM, BNP , GRACIELA #### [facility] [address] [place], [place] [address] Dr. Yonny Meza RBC 4.09 106/ul Critically low 4.20-5.40 [facility] Comment on above: Performed By: #### LIPA, CMP, CMADM, BNP , GRACIELA #### [facility] [address] [place], [place] [address] Dr. Yonny Meza WBC 7.9 103/ul Normal 4.0-11.0 [facility] Comment on above: Performed By: #### LIPA, CMP, CMADM, BNP , GRACIELA #### [facility] [address] [place], [place] [address] ABD/PELVIS WO CONon [...] HATTIE [place] Date: 2022-09-03 01:11 Normal [facility] ER URINE PROFILEon 3 Bilirubin Ql (U) Negative Normal NEGATIVE [facility] Comment on above: Performed By: #### LIPA, CMP, CMADM, BNP , GRACIELA #### [facility] [address] [place] [address] [address] Yonny Meza Clarity (U) CLEAR Normal CLEAR [facility] Comment on above: Performed By: #### LIPA, CMP, CMADM, BNP , GRACIELA #### [facility] [address] [place] [address] [address] Yonny Meza Color (U) LT. YELLOW Normal YELLOW [facility] Comment on above: Performed By: #### LIPA, CMP, CMADM, BNP , GRACIELA #### [facility] [address] [place] [address] [address] Yonny Meza ERUAHTy A micrscopic examina tion will be performed if indicated. Normal [facility] Comment on above: Performed By: #### LIPA, CMP, CMADM, BNP , GRACIELA #### [facility] [address] [address] [address] Yonny Meza Glucose Ql (U) Negative Normal NEGATIVE [facility] Comment on above: Performed By: #### LIPA, CMP, CMADM, BNP , GRACIELA #### [facility] [address] [address] [address] Yonny Meza Hemoglobin Ql (U) Negative Normal NEGATIVE [facility] Comment on above: Performed By: #### LIPA, CMP, CMADM, BNP , GRACIELA #### [facility] [address] [place] [address] Dr. Yonny Mzea Ketones Ql (U) Negative Normal NEGATIVE [facility] Comment on above: Performed By: #### LIPA, CMP, CMADM, BNP , GRACIELA #### [facility] [address] [address] [address] Yonny Meza LEUKOCYTES Negative Normal NEGATIVE [facility] Comment on above: Performed By: #### LIPA, CMP, CMADM, BNP , GRACIELA #### [facility] [address] [address] [address] Yonny Meza Nitrite Ql (U) Negative Normal NEGATIVE [facility] Comment on above: Performed By: #### LIPA, CMP, CMADM, BNP , GRACIELA #### [facility] [address] [address] [address] Yonny Meza pH (U) 7.0 [pH] Normal 5-9 [facility] Comment on above: Performed By: #### LIPA, CMP, CMADM, BNP , GRACIELA #### [facility] [address] [address] [address] Yonny Meza SPEC GRAVITY 1.015 Normal 1.005-<=1.0 25 [facility] Comment on above: Performed By: #### LIPA, CMP, CMADM, BNP , GRACIELA #### [facility] [address] [place] [address] Dr. Yonny Meza UA PROTEIN Negative Normal NEGATIVE/ TRACE [facility] Comment on above: Performed By: #### LIPA, CMP, CMADM, BNP , GRACIELA #### [facility] [address] [address] [address] Yonny Meza UR MICRO IND NOT INDICATED Normal [facility] Comment on above: Performed By: #### LIPA, CMP, CMADM, BNP , GRACIELA #### [facility] [address] [place] [address] Dr. Yonny Meza Urobilinogen Qn (U) 0.2 {Arnaud'U}/dL Normal 0.2 - 1.0 [facility] Comment on above: Performed By: #### LIPA, CMP, CMADM, BNP , GRACIELA #### [facility] [address] [place] [address] Dr. Yonny Meza LACTATE/LACTIC ACIDon 2022 Lactate [Moles/Vol] 2.3 mmol/L Critically high 0.4-2.0 [facility] Comment on above: Performed By: #### LACT #### [facility] [address] [place] [address] Dr. Yonny Meza Lactate [Moles/Vol] 2.2 mmol/L Critically high 0.4-2.0 [facility] Comment on above: Performed By: #### LIPA, CMP, CMADM, BNP , GRACIELA #### [facility] [address] [place] [address] Dr. Yonny Meza LIPASEon 09-03-2022 Lipase [Catalytic activity/Vol] 88.0 U/L Normal 73.0-393.0 [facility] Comment on above: Performed By: #### LIPA, CMP, CMADM, BNP , GRACIELA #### [facility] [address] [place] [address] Dr. Yonny Meza PROF 14(COMP METB)on 023 Albumin [Mass/Vol] 3.3 g/dL Critically low 3.4-5.0 [facility] Comment on above: Performed By: #### LIPA, CMP, CMADM, BNP , GRACIELA #### [facility] [address] [address] [address] Yonny Meza Albumin/Globulin [Mass ratio] 0.9 {ratio} Normal [facility] Comment on above: Performed By: #### LIPA, CMP, CMADM, BNP , GRACIELA #### [facility] [address] [place] [address] Dr. Yonny Meza ALP [Catalytic activity/Vol] 122 U/L Critically high 46-116 [facility] Comment on above: Performed By: #### LIPA, CMP, CMADM, BNP , GRACIELA #### [facility] [address] [place] [address] Dr. Yonny Meza ALT [Catalytic activity/Vol] 21 U/L Normal 14-59 [facility] Comment on above: Performed By: #### LIPA, CMP, CMADM, BNP , GRACIELA #### [facility] [address] [place] [address] Dr. Yonny Meza Anion gap [Moles/Vol] 12.4 mmol/L Normal [facility] Comment on above: Performed By: #### LIPA, CMP, CMADM, BNP , GRACIELA #### [facility] [address] [place] [address] Dr. Yonny Meza AST [Catalytic activity/Vol] 24 U/L Normal 15-37 [facility] Comment on above: Performed By: #### LIPA, CMP, CMADM, BNP , GRACIELA #### [facility] [address] [place] [address] Dr. Yonny Meza Bilirubin [Mass/Vol] 0.4 mg/dL Normal 0.2-1.0 [facility] Comment on above: Performed By: #### LIPA, CMP, CMADM, BNP , GRACIELA #### [facility] [address] [place] [address] Dr. Yonny Meza Calcium [Mass/Vol] 8.7 mg/dL Normal 8.5-10.1 [facility] Comment on above: Performed By: #### LIPA, CMP, CMADM, BNP , GRACIELA #### [facility] [address] [address] [address] Yonny Meza Chloride [Moles/Vol] 105 mmol/L Normal 98-107 [facility] Comment on above: Performed By: #### LIPA, CMP, CMADM, BNP , GRACIELA #### [facility] [address] [address] [address] Yonny Meza CO2 [Moles/Vol] 28.0 mmol/L Normal 21.0-32.0 [facility] Comment on above: Performed By: #### LIPA, CMP, CMADM, BNP , GRACIELA #### [facility] [address] [place] [address] Dr. Yonny Meza Creatinine [Mass/Vol] 1.11 mg/dL Critically high 0.55-1.02 [facility] Comment on above: Performed By: #### LIPA, CMP, CMADM, BNP , GRACIELA #### [facility] [address] [place] [address] Dr. Yonny Meza EGFR-AF CUBAN 58 mL/min/1.73m2 Critically low >=60 [facility] Comment on above: Performed By: #### LIPA, CMP, CMADM, BNP , GRACIELA #### [facility] [address] [place] [address] Dr. Yonny Meza EGFR-NON AF CUBAN 48 mL/min/1.73m2 Critically low >=60 [facility] Comment on above: Performed By: #### LIPA, CMP, CMADM, BNP , GRACIELA #### [facility] [address] [address] [address] Yonny Meza Globulin (S) [Mass/Vol] 3.7 g/dL Normal [facility] Comment on above: Performed By: #### LIPA, CMP, CMADM, BNP , GRACIELA #### [facility] [address] [place] [address] Dr. Yonny Meza Glucose [Mass/Vol] 152 mg/dL Critically high 74-106 [facility] Comment on above: Performed By: #### LIPA, CMP, CMADM, BNP , GRACIELA #### [facility] [address] [address] [address] Yonny Meza Potassium [Moles/Vol] 3.4 mmol/L Critically low 3.5-5.1 [facility] Comment on above: Performed By: #### LIPA, CMP, CMADM, BNP , GRACIELA #### [facility] [address] [place] [address] Dr. Yonny Meza Protein [Mass/Vol] 7.0 g/dL Normal 6.4-8.2 [facility] Comment on above: Performed By: #### LIPA, CMP, CMADM, BNP , GRACIELA #### [facility] [address] [place] [address] Dr. Yonny Meza Sodium [Moles/Vol] 142 mmol/L Normal 136-145 [facility] Comment on above: Performed By: #### LIPA, CMP, CMADM, BNP , GRACIELA #### [facility] [address] [place] [address] Dr. Yonny Meza Urea nitrogen [Mass/Vol] 14.0 mg/dL Normal 7.0-18.0 [facility] Comment on above: Performed By: #### LIPA, CMP, CMADM, BNP , GRACIELA #### [facility] [address] [place] [address] Dr. Yonny Meza Urea nitrogen/Creatin ine [Mass ratio] 12.6 mg/mg Normal [facility] Comment on above: Performed By: #### LIPA, CMP, CMADM, BNP , GRACIELA #### [facility] [address] [place] [address] Dr. Yonny Meza PROTIMEon 09-03-2022 INR Coag (PPP) [Relative time] 1.05 {INR} Normal [facility] Comment on above: Performed By: #### LIPA, CMP, CMADM, BNP , GRACIELA #### [facility] [address] [place] [address] Dr. Yonny Meza INR GUIDELINES SEE BELOW Normal [facility] Comment on above: Result Comment: DESIRED INR: 2.0 - 3.0 C ONDITIONS NOT LISTED BELOW 2.5 - 3.5 FOR PROSTHETIC HEART VALVE REPLACEMENT 2.5 - 3.5 RECURRENT THROMBOSIS Performed By: #### L IPA, CMP, CMADM, BNP, GRACIELA #### [facility] [address] [address] [address] Yonny Meza PT Coag (PPP) [Time] 11.1 s Normal 9.0-11.6 [facility] Comment on above: Performed By: #### LIPA, CMP, CMADM, BNP , GRACIELA #### [facility] [address] [address] [address] Yonny Meza PTTon 09-03-2022 aPTT Coag (Bld) [Time] 26.7 s Normal 22.3-36.2 [facility] Comment on above: Performed By: #### LIPA, CMP, CMADM, BNP , GRACIELA #### [facility] [address] [address] [address] Yonny Meza XR CHEST 1 Von [...] by: HATTIE [place] Date: 2022-09-03 00:[address] [facility] MAMM SCREEN 3D RON CADon 06-06-2022 MAMM SCREEN 3D RON CAD Patient: LUMA RIBEIRO Exam Date: 06/06/2022 : 1945 Gender:F Ordering : DR ROC STEELE M.D. Admission #: [id number] Family : Order #: [id number] CLICK HERE TO VIEW EXAM RADIOLOGY REPORT [...] breast cancer at age 61. LOCATION: [facility] BREAST COMPOSITION: Scattered areas fibroglandular density. FINDINGS: [...] Caballero MD on 06/07/2022 at 08:09 Normal [facility] No Panel Informationon 12-16 Please click on the link to view the study images Normal [facility] Work Phone: Radiologyon 12-03-2020 XR Pelvis and Hip - left 2 Views Normal [facility] Work Phone: MRI Humerus w/wo Contraston 11-20-2020 MRI Humerus w/wo Contrast Normal [facility] Work Phone: Otheron 02-13-2020 Interpreted by: BONIFACIO ALARCON 15:34MRN: [id number] Name: LUMA RIBEIRO STUDY:HIP, UNILATERAL W/PELVIS WHEN PERFORMED 2-3 VIEWS; Right;02/13/2020 1:58 pm INDICATION:pain. 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 No acute bony abnormality orperiprosthetic fracture appreciated. Electronically signed by: TASIA BIRD 02/13/20 15:34 Normal [facility] Work Phone: Complete Blood Count + Diffe rentialon 01-30-2020 Basophils (Bld) [#/Vol] 0.04 {x10E9/L} See Below [facility] [place] Work Phone: Comment on above: Reference Range: 0.00 - 0.10 Basophils/100 WBC (Bld) 0.2 % 0.0 - 2.0 [facility] [place] Work Phone: Eosinophils (Bld) [#/Vol] 0.01 {x10E9/L} See Below [facility] [place] Work Phone: Comment on above: Reference Range: 0.00 - 0.40 Eosinophils/100 WBC (Bld) 0.1 % 0.0 - 6.0 [facility] [place] Work Phone: Erythrocyte distribution width (RBC) [Ratio] 13.1 % See Below [facility] [place] Work Phone: Comment on above: Reference Range: 11.5 - 14.5 Hematocrit (Bld) [Volume fraction] 34.8 % below low threshold See Below [facility] Work Phone: Comment on above: Reference Range: 36.0 - 46.0 Hemoglobin (Bld) [Mass/Vol] 11.3 g/dL below low threshold See Below [facility] [place] Work Phone: Comment on above: Reference Range: 12.0 - 16.0 Lymphocytes (Bld) [#/Vol] 2.21 {x10E9/L} See Below [facility] [place] Work Phone: Comment on above: Reference Range: 0.80 - 3.00 Lymphocytes/100 WBC (Bld) 12.5 % See Below [facility] [place] Work Phone: Comment on above: Reference Range: 13.0 - 44.0 MCHC (RBC) [Mass/Vol] 32.5 g/dL See Below [facility] [employer] Work Phone: Comment on above: Reference Range: 32.0 - 36.0 MCV (RBC) [Entitic vol] 99 fL 80 - 100 [facility] Work Phone: Monocytes (Bld) [#/Vol] 1.82 {x10E9/L} above high threshold See Below [facility] Work Phone: Comment on above: Reference Range: 0.05 - 0.80 Monocytes/100 WBC (Bld) 10.3 % 2.0 - 10.0 [facility] Work Phone: Neutrophils/100 WBC (Bld) 76.3 % See Below [facility] Work Phone: Comment on above: Reference Range: 40.0 - 80.0 Platelets (Bld) [#/Vol] 234 {x10E9/L} 150 - 450 [facility] Work Phone: RBC (Bld) [#/Vol] 3.52 {x10E12/L} below low threshold See Below [facility] Work Phone: Comment on above: Reference Range: 4.00 - 5.20 WBC (Bld) [#/Vol] 17.7 {x10E9/L} above high threshold 4.4 - 11.3 [facility] [employer] Work Phone: Complete Blood Count + Differential 0.6 % 0.0 - 0.9 [facility] [employer] Work Phone: Comment on above: Immature Granulocyte Count (IG) includes promyelocytes, myelocytes and metamyelocytes but does not include bands. Percent differential counts (%) should be interpreted in the context of the absolute cell counts (cells/L). Complete Blood Count + Differential 13.52 {x10E9/L} above high threshold See Below [facility] [place] Work Phone: Comment on above: Reference Range: 1.60 - 5.50 Metabolic Panelon 01-30-2020 Anion gap [Moles/Vol] 8 mmol/L below low threshold 10 - 20 [facility] [place] Work Phone: [phone] Calcium [Mass/Vol] 8.8 mg/dL 8.6 - 10.3 [facility] [place] Work Phone: [phone] Chloride [Moles/Vol] 101 mmol/L 98 - 107 [facility] [place] Work Phone: [phone] CO2 [Moles/Vol] 32 mmol/L 21 - 32 [facility] [place] Work Phone: [phone] Creatinine [Mass/Vol] 1.00 mg/dL See Below [facility] [place] Work Phone: Comment on above: Reference Range: 0.50 - 1.05 Glucose [Mass/Vol] 128 mg/dL above high threshold 74 - 99 [facility] [place] Work Phone: Potassium [Moles/Vol] 4.2 mmol/L 3.5 - 5.3 [facility] [place] Work Phone: [phone] Sodium [Moles/Vol] 137 mmol/L 136 - 145 [facility] [place] Work Phone: [phone] Urea nitrogen [Mass/Vol] 14 mg/dL 6 - 23 [facility] [place] Work Phone: [phone] Otheron 01-30-2020 65 {mL/min/1.73m2} >60 [facility] [place] Work Phone: Comment on above: CALCULATIONS OF ESTIMATED GFR ARE PERFOR MED USING THE MDRD STUDY EQUATION FOR THE IDMS-TRACEABLE CREATININE METHODS. CLIN CHEM 2007;53:766-72 54 {mL/min/1.73m2} Abnormal >60 [facility] Work Phone: Otheron 01-29-2020 Interpreted by: ZBHSTW46/01/20 15:21MRN: [id number] Name: LUMA RIBEIRO STUDY:HIP, UNILATERAL W/PELVIS WHEN PERFORMED 2-3 VIEWS; 01/29/2020 12:25 pm INDICATION:s/p right ROSSANA. COMPARISON:01/16/2020 ORDERING CLINICIAN:TASIA BIRD FINDINGS:Pelvis and right hip, three views Interval right total hip arthroplasty noted without periprostheticfracture or lucency. There is no dislocation. IMPRESSION:Right total hip arthroplasty without immediate complicationsElectronically signed by: RAJIV 01/30/20 15:21 Normal [facility] Work Phone: XR Pelvis 1 or 2 views Please click on the link to view the study images Normal [facility] Work Phone: Coronavirus 2019 RNA by PCR, Screening Asymptomticon 01-27-2020 Coronavirus 2019 RNA by PCR, Screening Asymptomtic NOT DETECTED See Below [facility] Work Phone: Comment on above: SOURCE: Nasal, NasopharyngealReference R matias: Not DetectedThis assay is designed to detect [...] make patient management decisions.Fact sheet for providers: https://www.fda.gov/media/440417/downloadFact sheet for patients: https://www.fda.gov/media/454365/downloadThis test has received FDA Emergency Use Authorization (EUA) and has been verified by [facility] ([facility]). This test is only authorized for the duration of time that circumstances exist to justify the authorization of the emergency use of in vitro diagnostic tests for the detection of SARS-CoV-2 virus and/or diagnosis of COVID-19 infection under section 564(b)(1) of the Act, 21 U.S.C. 360bbb-3(b)(1), unless the authorization is terminated or revoked sooner. [facility] is certified under CLIA-88 as qualified to perform high complexity testing. Testing is performed in the [facility] laboratories located at [address] [place] [address]. Activated Partial Thrombopla stin Timeon 01-20-2020 aPTT Coag (PPP) [Time] 29 {sec} 25 - 35 [facility] Work Phone: Comment on above: THE APTT IS NO LONGER USED FOR MONITORIN G UNFRACTIONATED HEPARIN THERAPY. FOR MONITORING HEPARIN THERAPY, USE THE HEPARIN ASSAY. Complete Blood Count + Diffe rentialon 01-20-2020 Basophils (Bld) [#/Vol] 0.04 {x10E9/L} See Below [facility] Work Phone: Comment on above: Reference Range: 0.00 - 0.10 Basophils/100 WBC (Bld) 0.5 % 0.0 - 2.0 [facility] Work Phone: Eosinophils (Bld) [#/Vol] 0.09 {x10E9/L} See Below [facility] Work Phone: Comment on above: Reference Range: 0.00 - 0.40 Eosinophils/100 WBC (Bld) 1.0 % 0.0 - 6.0 [facility] Work Phone: Erythrocyte distribution width (RBC) [Ratio] 12.9 % See Below [facility] Work Phone: Comment on above: Reference Range: 11.5 - 14.5 Hematocrit (Bld) [Volume fraction] 44.6 % See Below [facility] [place] Work Phone: Comment on above: Reference Range: 36.0 - 46.0 Hemoglobin (Bld) [Mass/Vol] 14.5 g/dL See Below [facility] [place] Work Phone: Comment on above: Reference Range: 12.0 - 16.0 Lymphocytes (Bld) [#/Vol] 3.41 {x10E9/L} above high threshold See Below [facility] [place] Work Phone: Comment on above: Reference Range: 0.80 - 3.00 Lymphocytes/100 WBC (Bld) 38.4 % See Below [facility] [place] Work Phone: Comment on above: Reference Range: 13.0 - 44.0 MCHC (RBC) [Mass/Vol] 32.5 g/dL See Below [facility] [place] Work Phone: Comment on above: Reference Range: 32.0 - 36.0 MCV (RBC) [Entitic vol] 100 fL 80 - 100 [facility] Work Phone: Monocytes (Bld) [#/Vol] 0.81 {x10E9/L} above high threshold See Below [facility] [place] Work Phone: Comment on above: Reference Range: 0.05 - 0.80 Monocytes/100 WBC (Bld) 9.1 % 2.0 - 10.0 [facility] [place] Work Phone: Neutrophils (Bld) [#/Vol] 4.49 {x10E9/L} See Below [facility] [place] Work Phone: Comment on above: Reference Range: 1.60 - 5.50 Neutrophils/100 WBC (Bld) 50.7 % See Below [facility] [place] Work Phone: Comment on above: Reference Range: 40.0 - 80.0 Platelets (Bld) [#/Vol] 261 {x10E9/L} 150 - 450 [facility] Work Phone: RBC (Bld) [#/Vol] 4.48 {x10E12/L} See Below [facility] Work Phone: Comment on above: Reference Range: 4.00 - 5.20 WBC (Bld) [#/Vol] 8.9 {x10E9/L} 4.4 - 11.3 [facility] Work Phone: Complete Blood Count + Differential 0.3 % 0.0 - 0.9 [facility] Work Phone: Comment on above: Immature Granulocyte Count (IG) includes promyelocytes, myelocytes and metamyelocytes but does not include bands. Percent differential counts (%) should be interpreted in the context of the absolute cell counts (cells/L). Fructosamine, Serumon 2019 Fructosamine [Moles/Vol] 265 umol/L 0-285 [facility] Work Phone: Comment on above: Published reference interval for apparen tly healthy subjectsbetween age 20 and 60 is 205 - 285 umol/L and in a poorlycontrolled diabetic population is 228 - 563 umol/L with amean of 396 umol/L. Hematologyon 01-20-2020 INR Coag (PPP) [Relative time] 1.1 {INR} 0.9 - 1.1 [facility] Work Phone: PT Coag (PPP) [Time] 13.0 {sec} See Below [facility] Work Phone: Comment on above: Reference Range: 10.1 - 13.3 Metabolic Panelon 01-20-2020 ALP [Catalytic activity/Vol] 100 U/L 33 - 136 -[facility] [place] Work Phone: Anion gap [Moles/Vol] 13 mmol/L 10 - 20 -[facility] [place] Work Phone: Bilirubin [Mass/Vol] 0.6 mg/dL 0.0 - 1.2 -[facility] [place] Work Phone: Calcium [Mass/Vol] 9.7 mg/dL 8.6 - 10.3 -[facility] [place] Work Phone: Chloride [Moles/Vol] 101 mmol/L 98 - 107 -[facility] [place] Work Phone: CO2 [Moles/Vol] 32 mmol/L 21 - 32 [facility] [place] Work Phone: Creatinine [Mass/Vol] 1.01 mg/dL See Below [facility] [place] Work Phone: Comment on above: Reference Range: 0.50 - 1.05 Glucose [Mass/Vol] 88 mg/dL 74 - 99 [facility] [place] Work Phone: Potassium [Moles/Vol] 3.9 mmol/L 3.5 - 5.3 [facility] [place] Work Phone: Protein [Mass/Vol] 7.6 g/dL 6.4 - 8.2 -[facility] [place] Work Phone: Sodium [Moles/Vol] 142 mmol/L 136 - 145 -[facility] [place] Work Phone: Urea nitrogen [Mass/Vol] 15 mg/dL 6 - 23 -[facility] [place] Work Phone: [phone] Otheron 01-20-2020 100 1 -[facility] [place] Work Phone: [phone] [facility] [place] Work Phone: [phone] [facility] [place] Work Phone: [phone] [facility] [place] Work Phone: [phone] -[phone] 1 [facility] [place] Work Phone: [phone] [facility] [place] Work Phone: [phone] Sinus rhythm with oc casional premature ventricular complexes [facility] [place] Work Phone: [phone] 1 -[facility] [place] Work Phone: [phone] [email or web address]?Retriev [id number]&Date=20-01-2020&Time=1 4%3a54%3a12%3a00&TestType=ECG &Site=11&OutputType=PDF&Ext=P DF [facility] [place] Work Phone: [phone] [facility] [place] Work Phone: [phone] [facility] [place] Work Phone: [phone] [facility] [facility] [place] Work Phone: [phone] [facility] [place] Work Phone: [phone] [facility] [place] Work Phone: [phone] [facility] [place] Work Phone: [phone] Albumin BCP dye [Mass/Vol] 4.4 g/dL 3.4 - 5.0 [facility] [place] Work Phone: [phone] ALT With P-5'-P [Catalytic activity/Vol] 16 U/L 7 - 45 [facility] Work Phone: Comment on above: Patients treated with Sulfasalazine may generate falsely decreased results for ALT. AST With P-5'-P [Catalytic activity/Vol] 23 U/L 9 - 39 -[facility] Work Phone: 65 {mL/min/1.73m2} >[address] [facility] Work Phone: Comment on above: CALCULATIONS OF ESTIMATED GFR ARE PERFOR MED USING THE MDRD STUDY EQUATION FOR THE IDMS-TRACEABLE CREATININE METHODS. CLIN CHEM 2007;53:766-72 54 {mL/min/1.73m2} Abnormal >[address] [facility] Work Phone: Urinalysison 01-20-2020 Appearance (U) HAZY CLEAR -[facility] Work Phone: Color (U) YELLOW See Below [facility] Work Phone: Comment on above: Reference Range: STRAW,YELLOW Glucose Ql (U) Negative NEGATIVE -[facility] Work Phone: Ketones Ql (U) Negative NEGATIVE -[facility] Work Phone: Leukocyte esterase Test strip Ql (U) Negative NEGATIVE -[facility] Work Phone: pH (U) 7.0 [pH] 5.0 - 8.0 [facility] Work Phone: Protein (U) [Mass/Vol] Negative NEGATIVE [facility] Work Phone: RBC (U) [#/Vol] Negative NEGATIVE -[facility] Work Phone: Specific gravity (U) [Rel density] 1.019 See Below [facility] Work Phone: Comment on above: Reference Range: 1.005 - 1.035 Urinalysis Negative NEGATIVE [facility] Work Phone: Urinalysis 2.0 mg/dL above high threshold 0.0 - 1.9 [facility] Work Phone: Comment on above: Due to a manufacturing issue, low positi ve urobilinogen results may be falsely positive. Correlate with urine bilirubin and additional clinical/laboratory findings to assess the risk of hemolytic anemia or liver disease. If clinically indicated, repeat testing with an alternate method is available by contacting the laboratory within 24 hours..Some pigments and medications may cause a false positive urobilinogen. Otheron 01-16-2020 Interpreted by: AGNES ALVARADO01/16/20 13:42MRN: [id number] Name: LUMA RIBEIRO STUDY:HIP, UNILATERAL W/PELVIS WHEN PERFORMED 2-3 VIEWS; Right; 01/16/20201:39 pm INDICATION:pain. ORDERING CLINICIAN:HARSHAL ALVARADO FINDINGS:AP lateral right hip x-ray shows end-stage zsssjrgznmecukkcza-wi-zlmn arthrosis noted. 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 Electronically signed by: HARSHAL ALVARADO 01/16/20 13:42 Normal [facility] Work Phone: Vital Signs Date Time Vital Sign Value Performing Clinician Facility 05-23-2024 14:37-0500 Body height 157.5 cm Alex Tam DPM Work Phone: [facility] 05-23-2024 14:37-0500 Body mass index (BMI) [Ratio] 50.3 kg/m2 Alex Tam DPM Work Phone: [facility] 05-23-2024 14:37-0500 Body weight 124.74 kg Alex Tam DPM Work Phone: [facility] 05-23-2024 14:37-0500 Respiratory rate 18 /min Alex Tam DPM Work Phone: [facility] 05-22-2024 10:11-0500 Body height 157.5 cm Kamila Wilburton Number [employer] Work Phone: [facility] 05-22-2024 10:11-0500 Body mass index (BMI) [Ratio] 50.33 kg/m2 Kamila Wilburton [employer] Work Phone: [facility] 05-22-2024 10:11-0500 Body weight 124.83 kg Kamila Bigg [employer] A [employer] DRIVER Work Phone: [facility] 05-22-2024 10:11-0500 Diastolic blood pressure 80 mm[Hg] Kamila Wilburton [employer] Work Phone: [facility] 05-22-2024 10:11-0500 Heart rate 77 /min Kamila Bigg [employer] A [employer]UCK DRIVER Work Phone: [facility] 05-22-2024 10:11-0500 Respiratory rate 18 /min Kamila Wilburton [employer] DRIVER Work Phone: [facility] 05-22-2024 10:11-0500 SaO2% (BldA) [Mass fraction] 99 % Kamila Wilburton [employer] DRIVER Work Phone: [facility] 05-22-2024 10:11-0500 Systolic blood pressure 128 mm[Hg] Kamila Wilburton [employer]IVER Work Phone: [facility] 05-15-2024 11:32-0500 Body height 157.5 cm Kamial Wilburton [employer] Work Phone: [facility] 05-15-2024 11:32-0500 Body mass index (BMI) [Ratio] 48.54 kg/m2 Kamila Bigg [employer] A TRUCK DRIVER Work Phone: [facility] 05-15-2024 11:32-0500 Body weight 120.39 kg Kamila Bigg [employer] A TRUCK DRIVER Work Phone: [facility] 05-15-2024 11:32-0500 Diastolic blood pressure 76 mm[Hg] Kamila Wilburton [employer] DRIVER Work Phone: [facility] 05-15-2024 11:32-0500 Heart rate 97 /min Kamila Bigg [employer] A TRUCK DRIVER Work Phone: [facility] 05-15-2024 11:32-0500 Respiratory rate 18 /min Kamila Wilburton [employer] A TRUCK DRIVER Work Phone: [facility] 05-15-2024 11:32-0500 SaO2% (BldA) [Mass fraction] 98 % Kamila Wilburton [employer]IVER Work Phone: [facility] 05-15-2024 11:32-0500 Systolic blood pressure 126 mm[Hg] Kamila Wilburton [employer] DRIVER Work Phone: [facility] 05-07-2024 10:53-0500 Body height 157.5 cm Kamila Wilburton [employer]IVER Work Phone: [facility] 05-07-2024 10:53-0500 Body mass index (BMI) [Ratio] 48.87 kg/m2 Kamila Wilburton [employer] Work Phone: [facility] 05-07-2024 10:53-0500 Body weight 121.2 kg Kamila Bigg [employer] A TRUCK DRIVER Work Phone: [facility] 05-07-2024 10:53-0500 Diastolic blood pressure 82 mm[Hg] Kamila Wilburton [employer]IVER Work Phone: [facility] 05-07-2024 10:53-0500 Heart rate 88 /min Kamila Wilburton [employer] Work Phone: [facility] 05-07-2024 10:53-0500 Respiratory rate 18 /min Kamila Bigg [employer] A TRUCK DRIVER Work Phone: [facility] 05-07-2024 10:53-0500 SaO2% (BldA) [Mass fraction] 95 % Kamila Bigg [employer] A TRUCK DRIVER Work Phone: [facility] 05-07-2024 10:53-0500 Systolic blood pressure 130 mm[Hg] Kamila Wilburton [employer]IVER Work Phone: [facility] 04-03-2024 08:32-0500 Body height 157.5 cm Kamial Bigg [employer] A [employer]UCK DRIVER Work Phone: [facility] 04-03-2024 08:32-0500 Body mass index (BMI) [Ratio] 49.6 kg/m2 Kamila Bigg [employer] A [employer] DRIVER Work Phone: [facility] 04-03-2024 08:32-0500 Body weight 123.02 kg Kamila Bigg [employer] A TRUCK DRIVER Work Phone: [facility] 04-03-2024 08:32-0500 Diastolic blood pressure 80 mm[Hg] Kamila Wilburton [employer] Work Phone: [facility] 04-03-2024 08:32-0500 Heart rate 74 /min Kamila Bigg [employer] A TRUCK DRIVER Work Phone: [facility] 04-03-2024 08:32-0500 Respiratory rate 17 /min Kamila Wilburton [employer] DRIVER Work Phone: [facility] 04-03-2024 08:32-0500 SaO2% (BldA) [Mass fraction] 98 % Kamila Wilburton [employer] Work Phone: [facility] 04-03-2024 08:32-0500 Systolic blood pressure 126 mm[Hg] Kamila Wilburton [employer] Work Phone: [facility] 03-05-2024 11:19-0500 Body height 157.5 cm Kamila Wilburton [employer] Work Phone: [facility] 03-05-2024 11:19-0500 Body mass index (BMI) [Ratio] 50.85 kg/m2 Kamila Bigg [employer] A [employer] DRIVER Work Phone: [facility] 03-05-2024 11:19-0500 Body weight 126.1 kg Kamila Bigg [employer] A TRUCK DRIVER Work Phone: [facility] 03-05-2024 11:19-0500 Diastolic blood pressure 76 mm[Hg] Kamila Wilburton [employer] Work Phone: [facility] 03-05-2024 11:19-0500 Heart rate 102 /min Kamila Bigg [employer] A TRUCK DRIVER Work Phone: [facility] 03-05-2024 11:19-0500 SaO2% (BldA) [Mass fraction] 98 % 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: [facility] 03-05-2024 11:19-0500 Systolic blood pressure 134 mm[Hg] 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: [facility] 02-22-2024 14:09-0400 Body height 157.5 cm Alex Brown DPM Work Phone: [facility] 02-22-2024 14:09-0400 Body mass index (BMI) [Ratio] 50.85 kg/m2 Alex Brown DPM Work Phone: [facility] 02-22-2024 14:09-0400 Body weight 126.1 kg Alex Brown DPM Work Phone: [facility] 02-22-2024 14:09-0400 Diastolic blood pressure 80 mm[Hg] Alex Brown DPM Work Phone: [facility] 02-22-2024 14:09-0400 Heart rate 82 /min Alex Brown DPM Work Phone: [facility] 02-22-2024 14:09-0400 Systolic blood pressure 126 mm[Hg] Alex Brown DPM Work Phone: [facility] 06-15-2023 14:42-0500 Body height 157.5 cm Alex Brown DPM Work Phone: [facility] 06-15-2023 14:42-0500 Body mass index (BMI) [Ratio] 50.48 kg/m2 Alex Brown DPM Work Phone: [facility] 06-15-2023 14:42-0500 Body weight 125.19 kg Alex Brown DPM Work Phone: [facility] 06-15-2023 14:42-0500 Diastolic blood pressure 82 mm[Hg] Alex Brown DPM Work Phone: [facility] 06-15-2023 14:42-0500 Heart rate 84 /min Alex Tam DPM Work Phone: [facility] 06-15-2023 14:42-0500 Systolic blood pressure 133 mm[Hg] Alex Tam DPM Work Phone: [facility] 06-01-2023 15:33-0500 Body height 157.5 cm Alex Tam DPM Work Phone: [facility] 06-01-2023 15:33-0500 Body mass index (BMI) [Ratio] 50.48 kg/m2 Alex Tam DPM Work Phone: [facility] 06-01-2023 15:33-0500 Body weight 125.19 kg Alex Tam DPM Work Phone: [facility] 06-01-2023 15:33-0500 Diastolic blood pressure 80 mm[Hg] Alex Tam DPM Work Phone: [facility] 06-01-2023 15:33-0500 Heart rate 79 /min Alex Tam DPM Work Phone: [facility] 06-01-2023 15:33-0500 Systolic blood pressure 130 mm[Hg] Alex Tam DPM Work Phone: [facility] 01-16-2020 15:36-0400 BMI (Body Mass Index) 46.35 kg/m2 Tasia Bird [facility] [facility] [place] Work Phone: 01-16-2020 15:36-0400 Body weight 122.47 kg Tasia Bird [facility] Work Phone: 01-16-2020 15:36-0400 BSA (Body Surface Area) 2.22 m2 Tasia Bird [facility] Work Phone: 01-16-2020 15:36-0400 Height 162.56 cm Tasia Bird [facility] Work Phone: Encounters Encounter Date Encounter Type Care Provider Facility Start: 05-23-2024 End: 05-23-2024 Patient encounter procedure Alex Tam DPM Work Phone: [facility] Comment on above: Pain due to onychomy cosis of toenails of both feet (Primary Dx) Start: 05-23-2024 End: 05-23-2024 ambulatory ALEX Nolberto SAYDA Not Available Start: 05-22-2024 End: 05-22-2024 Bamboo flowsheet 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: [facility] Start: 05-22-2024 End: 05-22-2024 Bamboo flowsheet 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: [facility] Start: 05-22-2024 End: 05-22-2024 Office outpatient visit 25 minutes 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: [facility] Comment on above: Stage 3b chronic kid javon disease (HCC) (CMS/HCC) (Primary Dx); Benign essential hypertension (CMS/HCC); Hypomagnesemia; Pneumonia of both lungs due to infectious organism, unspecified part of lung Start: 05-22-2024 End: 05-22-2024 ambulatory KAMILA CASTILLO Not Available Start: 05-16-2024 End: 05-16-2024 Clinisync Result Encounter 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: [facility] Unsolicited Start: 05-16-2024 End: 05-16-2024 Clinisync Result Encounter 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: [facility] Unsolicited Start: 05-15-2024 End: 05-15-2024 Office outpatient visit 25 minutes 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: [facility] Comment on above: Edema, unspecified t ype (Primary Dx); Pulmonary fibrosis, unspecified (CMS/HCC); Acute congestive heart failure, unspecified heart failure type (CMS/HCC); Generalized weakness; Pneumonia of both lungs due to infectious organism, unspecified part of lung Start: 05-15-2024 End: 05-15-2024 ambulatory KAMILA CASTILLO Not Available Start: 05-12-2024 End: 05-14-2024 Clinisync Result Encounter Generic External Data Provider [facility] Unsolicited Start: 05-12-2024 End: 05-14-2024 Clinisync Result Encounter Generic External Data Provider [facility] Unsolicited Start: 05-07-2024 End: 05-07-2024 Office outpatient visit 25 minutes 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: [facility] Comment on [...] End: 04-29-2024 ambulatory Mala Sapp Facility:[facility] Start: 04-15-2024 End: 04-16-2024 Refill 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: [facility] Comment on above: Primary insomnia Start: 04-04-2024 End: 04-04-2024 Orders Only 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: [facility] Comment on above: Acute pulmonary omid a (CMS/HCC) (Primary Dx); Hypokalemia Start: 04-03-2024 End: 04-03-2024 Bamboo flowsheet 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: [facility] Start: 04-03-2024 End: 04-03-2024 Bamboo flowsheet 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: [facility] Start: 04-03-2024 End: 04-03-2024 ambulatory KAMILA CASTILLO Not Available Start: 04-03-2024 End: 04-03-2024 Office outpatient visit 25 minutes 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: [facility] Comment on above: Acute cough (Primary Dx); Rib pain; Fall, initial encounter; Shortness of breath; Lumbosacral spondylosis without myelopathy; Pain of right hand; Right wrist pain; Acute non-recurrent sinusitis of other sinus Start: 04-03-2024 End: 04-03-2024 ambulatory KAMILA CASTILLO Not Available Start: 03-07-2024 End: 03-07-2024 Bamboo flowsheet Waqas Dugan DO Work Phone: [facility] [employer] [facility] Start: 03-07-2024 End: 03-07-2024 Bamboo flowsheet Waqas Dugan DO Work Phone: [facility] Start: 03-07-2024 End: 03-07-2024 Patient encounter procedure Bullophjean-claude Ritchie DO Work Phone: [facility] [employer] [facility] Comment on above: Carpal tunnel syndro me on left (Primary Dx) Start: 03-07-2024 End: 03-07-2024 ambulatory WAQAS DUGAN Not Available Start: 03-05-2024 End: 03-05-2024 Bamboo flowsheet 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: [facility] Start: 03-05-2024 End: 03-05-2024 Bamboo flowsheet 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: [facility] Start: 03-05-2024 End: 03-05-2024 Office outpatient visit 25 minutes 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: [facility] Comment on above: Cellulitis of finger of left hand (Primary Dx); Flu vaccine need; Numbness of hand; Encounter for screening mammogram for malignant neoplasm of breast; Lymphadenopathy; Axillary pain, left; Ankylosing spondylitis of thoracic region (CMS/HCC) Start: 03-05-2024 End: 03-05-2024 ambulatory KAMILA Mcclure BIGG Not Available Start: 02-29-2024 End: 02-29-2024 Refjavier Steele MD Work Phone: [facility] [...] PODIATRY Start: 02-22-2024 End: 02-22-2024 ambulatory ALEX A BROWN Not Available Start: 01-29-2024 End: 01-29-2024 Refill Roc Steele MD Work Phone: [facility] Comment on above: Benign essential hyp ertension ([facility]) Start: 12-14-2023 End: 12-14-2023 ambulatory ALEX A BROWN Not Available Start: 11-30-2023 End: 11-30-2023 [...] 06-01-2023 ambulatory ALEX TAM Not Available Start: 10-04-2022 Patient encounter procedure [facility] Work Phone: [facility] [place] Work Phone: Start: 10-04-[address] Roc Steele II Facility:[id number] Start: 09-05-2022 End: 09-05-[address] SARABJIT CORNEJO . Facility:[facility] Start: 09-03-2022 End: 09-03-2022 ambulatory SASHA DUTTA . Facility:[facility] Start: 06-06-2022 End: 06-07-[address] ROC STEELE Facility:[facility] Start: 12-16-2020 Patient encounter procedure Mone Weiss MD Work Phone: [facility] [place] Work Phone: Start: 11-25-2020 Chart Update Tasia [place] Work Phone: [facility] [place] Work Phone: Start: 10-15-2020 Patient encounter procedure Ma tthew Pelon MD Work Phone: [facility] [place] Work Phone: Start: 02-13-2020 Patient encounter [facility] [place] Work Phone: Start: 01-16-2020 Patient encounter procedure Tasia Pelon [facility] [place] Work Phone: Procedures Date Procedure Procedure Detail Performing Clinician Start: 05-16-2024 ALL BASIC METABOLIC PANEL 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: Start: 05-12-2024 BLOOD CULTURE 1 [...] EST Procedure Visit [facility] [address] [facility] [address] [place] [address] Alex Tam, DPRen [address] [facility] [address] [place] [address] [facility] Start: 05-22-2024 End: 05-22-2025 CBC panel - Blood by Automated count CBC Lab Routine Stage 3b chronic kidney disease (HCC) ([facility]/HCC) Expected: 05/22/2024 (Approximate), Expires: 05/22/2025 [facility] Comment on above: Expected: 05/22/2024 (Approximate), Expires: 05/22/2025 Start: 05-22-2024 End: 05-22-2025 Comprehensive metabolic 2000 panel - Serum or Plasma Comprehensive metabolic panel Lab Routine Stage 3b chronic kidney disease (HCC) (CMS/HCC) Expected: 05/22/2024 (Approximate), Expires: 05/22/2025 [facility] Work Phone: Comment on above: Expected: 05/22/2024 (Approximate), Expires: 05/22/2025 Start: 05-22-2024 End: 05-22-2025 Magnesium [Mass/volume] in Serum or Plasma Magnesium Lab Routine Hypomagnesemia Expected: 05/22/2024 (Approximate), Expires: 05/22/2025 [facility] Comment on above: Expected: 05/22/2024 (Approximate), Expires: 05/22/2025 Start: 05-22-2024 End: 05-22-2024 Patient encounter procedure 05/22/2024 10:00 AM EST Office Visit [facility] [address] [place] [address] Kamila Castillo, CLASS A TRUCK DRIVER [address] [place] [address] Arrived [facility] Comment on above: Arrived Start: 05-16-2024 End: 05-16-2024 Patient encounter procedure 05/16/2024 1:00 PM EST Office Visit [facility] [address] [place] [address] Kamila Castillo, CLASS A TRUCK DRIVER [address] [place] [address] [facility] Start: 05-15-2024 End: 05-15-2025 [...] [address] [place] [address] Kamila Castillo NP [address] [place] [address] [facility] Start: 05-14-2024 End: 05-14-2024 Patient encounter procedure 05/14/2024 11:00 AM EST Office Visit [facility] [address] [place] [address] Kamila Castillo CLASS A TRUCK DRIVER [address] [place] [address] [facility] Start: 05-02-2024 End: 05-02-2024 Patient encounter procedure 05/02/2024 2:50 PM EST Procedure Visit [facility] [address] [place] [address] Alex Tam, DPRen [address] [facility] [address] [place] [address] [facility] Start: 04-03-2024 End: 04-03-2025 [...] [address] [place] [address] Kamila Castillo NP [address] [place] [address] Arrived [facility] Comment on above: Arrived Start: 03-07-2024 End: 03-07-2024 Patient encounter procedure 03/07/2024 11:00 AM EST Procedure Visit [facility] [address] [place] [address] Waqas Dugan, [address] [place] [address] Numbness of hand [facility] Comment on above: Numbness of hand Start: [...] Visit [facility] [address] [facility] [address] [place] [id number] Kamila Castillo, CLASS A TRUCK DRIVER [address] [facility] [address] [place] [address] [facility] Start: 02-22-2024 End: 02-22-2024 [...] PODIATRY [address] [place] [address] Alex Tam DPM [address] [address] [facility] Start: 06-30-2023 Medicare Annual Wellness (AWV) Medicare Annual Wellness (AWV) [facility] Start: 06-29-2023 End: 06-29-2023 Patient encounter procedure 06/29/2023 2:30 PM EST Office Visit [facility] [address] [place] [address] Alex Tam DPM [address] [address] [facility] Start: 06-15-2023 End: 06-15-2023 Patient encounter procedure 06/15/2023 2:30 PM EST Office Visit [facility] [address] [facility] [address] [place] [address] Alex Tam DPM [address] [address] [facility] Start: 10-17-2022 NPV, Provider: Roc Alvarado, Status: Hang, Time: 1:30 PM NPV, Provider: Roc Alvarado, Status: Pen, Time: 1:30 PM [facility] Work Phone: Start: 01-07-2021 FUV, Provider: Tasia Bird, Status: Pen, Time: 2:15 PM FUV, Provider: Tasia Bird, Status: Hang, Time: 2:15 PM [facility] Work Phone: Start: 12-03-2020 FUV, Provider: Tasia Bird, Status: Pen, Time: 12:45 PM FUV, Provider: Tasia Bird, Status: Hang, Time: 12:45 PM [facility] Work Phone: BLOOD CULTURE 1 BLOOD CULTURE 1 Lab Routine 05/12/2024 8:10 PM EST [facility] Immunizations Immunization Date Immunization Notes Care Provider Fa nicholas 03-05-2024 Influenza, High-dose Seasonal, Quadrivalent, Preservative Free Kamila Castillo NP Work Phone: [facility] 03-01-2023 Influenza, High-dose Seasonal, Quadrivalent, Preservative Free Alex Sayda DPM Work Phone: [facility] 03-01-2023 influenza virus vacc ine, unspecified formulation Roc Steele MD Work Phone: [facility] 03-31-2022 Moderna Bivalent Pereira ster Vaccination Alex Sayda DPM Work Phone: [facility] 03-23-2022 Influenza, High-dose Seasonal, Quadrivalent, Preservative Free Alex Brown DPM Work Phone: [facility] 01-28-2021 Influenza, Seasonal, Quadrivalent, Adjuvanted Alex Sayda DPM Work Phone: [facility] 01-30-2020 influenza, injectabl e, quadrivalent, preservative free Alex Brown DPM Work Phone: [facility] 09-26-2019 zoster vaccine recombinant N icholas Brown DPM Work Phone: [facility] 05-16-2019 zoster vaccine recombinant N icholas Brown DPM Work Phone: [facility] 01-31-2018 influenza, high dose seasonal, preservative-free Alex Brown DPM Work Phone: [facility] 01-25-2017 influenza, high dose seasonal, preservative-free Alex Brown DPM Work Phone: [facility] 02-02-2016 influenza, injectabl e, quadrivalent, contains preservative Alex Brown DPM Work Phone: [facility] [facility] 02-07-2015 pneumococcal conjuga te vaccine, 13 valdania Johnson Sayda DPM Work Phone: [facility] 01-30-2015 seasonal influenza, intradermal, preservative free Alex Sayda DPM Work Phone: [facility] 02-07-2014 seasonal influenza, intradermal, preservative free Alex Sayda DPM Work Phone: [facility] 12-11-2013 pneumococcal polysaccharide vaccine, 23 valent Alex Sayda DPM Work Phone: [facility] 01-17-2012 zoster vaccine, live Zoya delatorre Sayda DPM Work Phone: [facility] Payers Date Payer Category Payer Private Health [facility] [id number] 2022 Unknown 2008 Medicare [id number] 2008 Medicare [id number] 1959 Medicare [id number] 1959 Unknown [id number] 1946 Unknown [id number] 2.16.840.1.067509.3.579 .2.593 1946 Unknown [id number] 2.16.840.1.585583.3.579 .2.593 1946 Unknown [id number] 2.16.840.1.692431.3.579 .2.593 1946 Unknown [id number] 2.16.840.1.603303.3.579 .2.1068 1946 Unknown [id number] 2.16.840.1.119624.3.579 .2.125 1946 Unknown [id number] 2.16.840.1.834053.3.579 .2.1258 1946 Unknown [id number] 2.16840.1.035141.3.579 .2.1258 1946 Unknown [id number] 2.16840.1.686214.3.579 .2.1258 1946 Unknown [id number] 2.840.1.442525.3.579 .2.1258 1946 Unknown [id number] 2.840.1.264039.3.579 .2.1258 1946 Unknown [id number] 2.840.1.752510.3.579 .2.1258 1946 Unknown [id number] 2.840.1.437640.3.579 .2.1258 1946 Unknown [id number] 2.840.1.874938.3.579 .2.1258 1946 Unknown [id number] 2.840.1.362357.3.579 .2.1258 1946 Unknown [id number] 2.16.840.1.024249.3.579 .2.1258 1946 Unknown [id number] 2.16840.1.203531.3.579 .2.1258 1946 Unknown [id number] 2.16.840.1.824464.3.579 .2.1258 1946 Unknown [id number] 2.16840.1.735514.3.579 .2.1259 1946 Unknown [id number] 2.16.840.1.569225.3.579 .2.1259 1946 Unknown [id number] 2.16.840.1.922938.3.579 .2.1258 1946 Unknown [id number] 2.16.840.1.392553.3.579 .2.1258 1946 Unknown [id number] 2.16.840.1.387712.3.579 .2.1258 1946 Unknown [id number] 2.16.840.1.272118.3.579 .2.1258 1946 Unknown [id number] 2.16.840.1.372313.3.579 .2.1259 Social History Date Type Detail Facility Start: 11-25-2022 End: 07-06-2023 Never a smoker Never a smoker [facility] Work Phone: Start: 10-03-2022 Tobacco smoking stat [facility] [place] Never smoked tobacco [facility] Start: 10-03-2022 Tobacco use and exposure Smoke less tobacco non-user [facility] Start: 06-01-2023 End: 05-23-2024 Alcohol intake Lifetime non-drinker (finding) [facility] [...] Sex Assigned At Not on file [facility] NEGATED: Highlighted row - - [facility] [place] Work Phone: Functional Status Date Assessment Result Facility NEGATED: Highlighted row Functional performance Functional status health issues are not documented Disease [facility] [place] Work Phone: Mental Status Date Assessment Result Facility NEGATED: Highlighted row Cognitive function [Interpretation] Cognitive status health issues are not documented Disease [facility] [place] Work Phone: Clinical Notes 06-01-2023 to 05-23-2024 Alex Tam, SOPHY - 05/23/2024 2:40 PM Willam Castillo NP - 05/22/2024 10:00 AM Willam Castillo, DEISY - 05/15/2024 11:30 AM Willam Castillo, DEISY - 05/07/2024 11:00 AM EST Note Date & Type Note Facility 05-23-2024 History of Presen t illness Narrative Patient: [...] of lumbar surgery multiple times HTN (hypertension) ([facility]) Hyperlipidemia ([facility]) Insomnia Lumbago Lumbosacral spondylosis without myelopathy Myalgia, unspecified site Myositis Occlusion and stenosis of unspecified carotid artery without mention of cerebral infarction CARO (obstructive sleep apnea) Osteoarthrosis unspecified wheteher generalized or localized. unspecified site Osteopenia Paroxysmal supraventricular tachycardia ([facility]) Medications: Current Outpatient Medications: ALPRAZolam (Xanax) 0.25 [...] BY MOUTH TWICE DAILY, Disp: 200 capsule, Rfl: 3 meloxicam (Mobic) 15 MG tablet, TAKE 1 TABLET BY MOUTH ONCE DAILY, Disp: 100 tablet, Rfl: 3 metoprolol succinate XL (Toprol-XL) 50 MG 24 hr tablet, TAKE 1 TABLET BY MOUTH ONCE DAILY, Disp: 90 tablet, Rfl: 3 Multiple Vitamin (Multi Vitamin) tablet, [...] 1 TABLET BY MOUTH EVERY 8 HOURS NEEDED, Disp: 270 tablet, Rfl: 0 zolpidem (Ambien) 10 MG tablet, TAKE 1 TABLET BY MOUTH AT BEDTIME, Disp: 90 tablet, Rfl: 0 Social History: Social History Socioeconomic History Marital status: Spouse name: Not on file Number of children: Not on file Years of education: Not on file Highest education level: Not on file Occupational History Not on file Tobacco Use Smoking status: Never Smokeless tobacco: Never Vaping Use Vaping status: Unknown Substance and Sexual Activity Alcohol use: Never Drug use: Defer Sexual activity: Defer Other Topics Concern Not on file Social [...] min Stress: No Stress Concern Present (11/25/2022) [employer] [employer] - Occupational Stress Questionnaire Feeling of Stress : Only a little Social Connections: Moderately Isolated (11/25/2022) Social Connection and Isolation Panel [NHANES] Frequency of Communication with Friends and Family: More than three times a week Frequency of Social Gatherings with Friends and Family: Once a week Attends Sabianist Services: Never Active Member of Clubs or [...] 9 Alex Tam DPM documented in this encounter [facility] 05-22-2024 History of Presen t illness Narrative Images from the original note were not included. Subjective Patient ID: Luma Ribeiro is a 78 y.o. female who presents for a hospital F/U. Luma presents today for a hospital F/U. She is still having issues with her breathing and coughing. Current Outpatient Medications on File Prior to Visit Medication Sig Dispense Refill ALPRAZolam (Xanax) 0.25 MG tablet Take 1 tablet (0.25 mg) by mouth 2 (two) times a day as needed for anxiety 60 tablet 0 amLODIPine (Norvasc) 5 MG tablet Take 1 tablet (5 mg) by mouth Daily 90 tablet 3 benzonatate (Tessalon) 100 MG capsule TAKE 1 CAPSULE BY MOUTH TWICE DAILY to THREE TIMES DAILY NEEDED FOR COUGH for 5 (FIVE) days Calcium Carb-Cholecalciferol 600-20 MG-MCG chewable tablet calcium carb 600 mg(1,500 mg)-vit D3 400 unit-minerals chewable tablet Take by oral route. cyclobenzaprine (Flexeril) 10 MG tablet Take 10 mg by mouth 3 (three) times a day as needed for muscle spasms. [] doxycycline (Vibra-Tabs) 100 MG tablet Take 1 [...] BY MOUTH TWICE DAILY 200 capsule 3 meloxicam (Mobic) 15 MG tablet TAKE 1 [...] MOUTH AT BEDTIME 90 tablet 0 [DISCONTINUED] methylPREDNISolone (Medrol Dospak) 4 MG tablets Follow schedule on package instructions 21 tablet 0 No current facility-administered medications on file prior to visit. I have reviewed and reconciled the history and medication list with the patient today. Allergies Allergen Reactions Moxifloxacin Anaphylaxis Other Reaction(s): Tongue Swelling ; Trouble Breathing Ciprofloxacin Other Reaction(s): Unknown Clarithromycin Other Reaction(s): Unknown Sulfanilamide Other Reaction(s): Unkown Social History Tobacco Use Smoking status: Never Smokeless tobacco: Never Vaping Use Vaping status: Never Used Substance Use Topics Alcohol use: Never Drug [...] INJECTION x7 NERVE BLOCK Left 03/26/2019 T12-L3 [place] TOTAL HIP ARTHROPLASTY Left [place] (01-29-2020 to 01-30-2020) RADIOFREQUENCY ABLATION Left 06/25/2019 L2-L5 REFRACTIVE SURGERY 2015 SHOULDER SURGERY left TOTAL KNEE ARTHROPLASTY Bilateral left 2002 right 2002 US ASPIRATION INJECTION INTERMEDIATE JOINT 12/16/2020 US ASPIRATION INJECTION INTERMEDIATE JOINT 12/16/2020 Visit Vitals Smoking Status Never Review of Systems Constitutional: Positive for fatigue. HENT: Negative. Eyes: Negative. Respiratory: Positive for cough. Cardiovascular: Negative. Genitourinary: Negative. Musculoskeletal: Negative. Neurological: Positive for weakness. Psychiatric/Behavioral: Negative. Objective Physical Exam Vitals reviewed. Constitutional: Appearance: Normal appearance. HENT: Head: Normocephalic. Nose: Nose normal. Mouth/Throat: Mouth: Mucous membranes are moist. Pharynx: Oropharynx is clear. Eyes: Conjunctiva/sclera: Conjunctivae normal. Cardiovascular: Rate and Rhythm: Normal rate and regular rhythm. Pulmonary: Effort: Pulmonary effort is normal. Breath sounds: Normal breath sounds. Comments: Occasional cough Skin: General: Skin is warm and dry. Neurological: General: No focal deficit present. Mental Status: She is alert and oriented to person, place, and time. Psychiatric: Mood and Affect: Mood normal. Behavior: Behavior normal. Thought Content: Thought content normal. Assessment/Plan Diagnoses and all orders for this visit: Stage 3b chronic kidney disease (HCC) (CMS/HCC) - Comprehensive metabolic panel; Future - CBC; Future Await lab. Benign essential hypertension (CMS/HCC) - metoprolol succinate XL (Toprol-XL) 50 MG 24 hr tablet; Take 1 tablet (50 mg) by mouth in the morning and 1 tablet (50 mg) before bedtime. Patient's blood pressure is currently well controlled. Continue with current medications and I will continue to monitor. Goal BP remains less than 130/80. Hypomagnesemia - Magnesium; Future Pt received replacement in ER. Await lab. Pneumonia of both lungs due to infectious organism, unspecified part of lung Continue Doxycycline until gone. If you start to get more congested or your cough increases after ATB, you need to come back for further treatment. No follow-ups on file. documented in this encounter [facility] 05-15-2024 History of Presen t illness Narrative Images from the original note were not included. Subjective Patient ID: Luma Ribeiro is a 78 y.o. female who presents for A F/U FOR PNEUMONIA, CHF Luma presents today for F/U for pneumonia and CHF. Was admitted to [facility] on 05-12-24.She is feeling weak and SOB still. Home health has not started. Pt would benefit from Nursing, PT/OT, and aide. PT was diagnosed with generalized weakness, CHF, And pneumonia. She continues on Doxycycline. The hospital discharge pt with an order for Lasix prn. Pt educated on when to take a prn lasix. She verbalized understanding. The hospital set up [facility] but we will set pt up with [facility] as they have a contract with [facility]. She is home bound due [...] BLOCK 2019 and 2019 LUMBAR EPIDURAL INJECTION 2017 to 2021 LUMBAR TRANSFORAMINAL EPIDURAL STEROID INJECTION x7 NERVE BLOCK Left 03/26/2019 T12-L3 [place] TOTAL HIP ARTHROPLASTY Left [place] (01-29-2020 to 01-30-2020) RADIOFREQUENCY ABLATION Left 06/25/2019 [...] follow-ups on file. documented in this encounter [facility] 05-07-2024 History of Presen t illness Narrative [...] TWICE DAILY 200 capsule 3 [] HYDROcodone-acetaminophen ([place]) 5-325 MG tablet Take 1 tablet by [...] BLOCK 2019 and 2019 LUMBAR EPIDURAL INJECTION 2017 to 2021 LUMBAR TRANSFORAMINAL EPIDURAL STEROID INJECTION x7 NERVE BLOCK Left 03/26/2019 T12-L3 TN TOTAL HIP ARTHROPLASTY Left [place] (01-29-2020 to 01-30-2020) RADIOFREQUENCY ABLATION Left 06/25/2019 [...] (CMS/HCC) Body mass index (BMI) 45.0-49.9, adult ([facility]/HCC) Discussed goal of BMI < 30. Advised [...] follow-ups on file. documented in this encounter [facility] 04-16-2024 Telephone encount er Note OARRS reviewed, Rx sent into patient's pharmacy. [facility] 04-16-2024 Miscellaneous Notes Formattin g of this note might be different from the original. OARRS reviewed, Rx sent into patient's pharmacy. documented in this encounter [facility] 04-03-2024 History of Presen t illness Narrative [...] breathing, coughing, lifting and movement. Treatments tried: [place], cough syrup, muscle relaxer. The treatment provided [...] TWICE DAILY 200 capsule 3 [] HYDROcodone-acetaminophen ([place]) 5-325 MG tablet Take 1 tablet by [...] BLOCK 2019 and 2019 LUMBAR EPIDURAL INJECTION 2017 to 2021 LUMBAR TRANSFORAMINAL EPIDURAL STEROID INJECTION x7 NERVE BLOCK Left 03/26/2019 T12-L3 [place] TOTAL HIP ARTHROPLASTY Left [place] (01-29-2020 to 01-30-2020) RADIOFREQUENCY ABLATION Left 06/25/2019 [...] breathing. Lumbosacral spondylosis without myelopathy - HYDROcodone-acetaminophen ([place]) 5-325 MG tablet; Take 1 tablet by [...] follow-ups on file. documented in this encounter [facility] 03-07-2024 Note Carpal tunnel syndro me, left, severe. Progressed substantially when compared to EDX evaluation in 2021. C8 radiculopathy, left, moderate. Progressed when compared to EDX evaluation in 2021 [facility] 03-07-2024 Note Carpal tunnel syndro me, left, severe. Progressed substantially when compared to EDX evaluation in 2021. C8 radiculopathy, left, moderate. Progressed when compared to EDX evaluation in 2021 [facility] 03-07-2024 History of Presen t illness Narrative Images from the original note were not included. Reason for Appointment: EMG Patient: Luma Ribeiro : 1945 EM[facility] Computer: [employer] Referring Physician: Kamila Castillo CNP EMG: PABLO theatre professor: Jimmy Gibson RT(R) Office Location: [facility] Reason for EMG: c/o numbness/tingling in left hand/forearm especially in 2nd & 3rd digits, weakness in left hand. No hx of DM. Not on blood thinners. Comments: Procedure was explained to the patient who expressed understanding. Patient appeared to have tolerated the test well despite some discomfort due to the nature of the test. documented in this encounter [facility] 03-05-2024 History of Presen t illness Narrative [...] inciting event Pt feels she has decreased application development specialist strength in left hand Hypertension This is [...] MOUTH TWICE DAILY 200 capsule 3 HYDROcodone-acetaminophen ([place]) 5-325 MG tablet Take 1 tablet by [...] at bedtime 90 tablet 1 [DISCONTINUED] HYDROcodone-acetaminophen ([place]) 5-325 MG tablet Take 1 tablet by [...] INJECTION x7 NERVE BLOCK Left 03/26/2019 T12-L3 [place] TOTAL HIP ARTHROPLASTY Left [place] (01-29-2020 to 01-30-2020) RADIOFREQUENCY ABLATION Left 06/25/2019 [...] need - Influenza, high-dose seasonal, quadrivalent, PF (QBH457) (Fluzone High Dose [place] 0.7mL dose) [...] follow-ups on file. documented in this encounter [facility] 02-29-2024 Telephone encount er Note OARRS reviewed, Rx sent into patient's pharmacy. [facility] 02-29-2024 Miscellaneous Notes Formattin g of this note might be different from the original. OARRS reviewed, Rx sent into patient's pharmacy. Hydrocodone 325 DDM IN [place] She had an appt today for a med follow up with kamila but had to change it due to her not being in. She said she has about 6 pills left. She did reschedule her med follow up for next Monday. documented in this encounter [facility] 02-29-2024 Telephone encount er Note Hydrocodone 325 DDM [place] She had an appt today for a med follow up with kamila but had to change it due to her not being in. She said she has about 6 pills left. She did reschedule her med follow up for next Monday. [facility] 01-29-2024 Telephone encount er Note Amlodipine sent [facility] 01-29-2024 Miscellaneous Notes Formattin g of this note might be different from the original. Amlodipine sent documented in this encounter [facility] 06-15-2023 History of Presen t illness Narrative [...] Diagnosis Date Cardiomegaly Diverticulosis 2013 Edema Glaucoma ([facility]/HCC) Heart disease, unspecified History of lumbar surgery multiple times HTN (hypertension) (CMS/HCC) Hyperlipidemia ([facility]) Insomnia Lumbago Lumbosacral spondylosis without myelopathy Myalgia, [...] min Stress: No Stress Concern Present (11/25/2022) [employer] [employer] - Occupational Stress Questionnaire Feeling of Stress : Only a little Social Connections: Moderately Isolated (11/25/2022) Social Connection and Isolation Panel [NHANES] Frequency of Communication with Friends and Family: More than three times a week Frequency of Social Gatherings with Friends and Family: Once a week Attends Sabianist Services: Never Active Member of Clubs or [...] Patient may continue with conservative treatments including kndy-smg-jwouxyq anti-inflammatories and other treatments suggested today. Patient may want to be scheduled for surgical intervention in the near future. Patient have the right hallux subungual exostectomy with the lateral left hallux partial permanent nail avulsion in the near future Alex Tam DPM documented in this encounter [facility] 06-01-2023 History of Presen t illness Narrative [...] Diagnosis Date Cardiomegaly Diverticulosis 2013 Edema Glaucoma ([facility]) Heart disease, unspecified History of lumbar surgery multiple times HTN (hypertension) ([facility]) Hyperlipidemia ([facility]) Insomnia Lumbago Lumbosacral spondylosis without myelopathy Myalgia, [...] min Stress: No Stress Concern Present (11/25/2022) [place] [employer] - Occupational Stress Questionnaire Feeling of Stress : Only a little Social Connections: Moderately Isolated (11/25/2022) Social Connection and Isolation Panel [NHANES] Frequency of Communication with Friends and Family: More than three times a week Frequency of Social Gatherings with Friends and Family: Once a week Attends Sabianist Services: Never Active Member of Clubs or [...] Patient may continue with conservative treatments including vtoh-tbn-ohdoxuy anti-inflammatories and other treatments suggested today. Patient [...] Alex Tam DPM documented in this encounter [facility] Evaluation note Diagnosis Subungual exostosis [...] of lung [facility] Diagnosis Stage 3b chronic kidney disease (HCC) (CMS/HCC)- Primary Benign essential hypertension (CMS/HCC) Essential hypertension, benign Hypomagnesemia Disorders of magnesium metabolism Pneumonia of both lungs due to infectious organism, unspecified part of lung Pain due to onychomycosis of toenails of both feet- Primary [facility] Diagnosis Pain due to onychomycosis of toenails of both feet- Primary [facility] NarrativeLuma is a 75-year-old female patient of Dr. Bird who is here for ultrasound-guided right intraarti cular shoulder injection. She has a history of pain and discomfort. She was seen and evaluated and referred to me for first lifetime intraarticular shoulder injection, which the patient accepts[facility] Work Phone: History of Present illness [...] normal pronation supination wrist flexion extension and 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 Distal pulses and sensation are intact. Limited forward flexion to about 25 degrees lateral abduction to about 15 unable to perform any external rotation but internal he can get to the small of her back. Herexam does not allow for much of a true Neer's Shelby or Pettis's test. * Diagnostics: See dictated report from today, previous outside CT scan report of the humerus reviewed, and is available in the [facility] chart. * Procedure: None * Assessment: [...] the patient's CT scan report reviewed in [facility] chart Other than the anterior medial [...] grammatical areas may persist related to the [employer] software * Taniya Canchola MD * Office: * . -[facility] Work Phone: History of Present illness [...] min Stress: No Stress Concern Present (11/25/2022) [place] [employer] - Occupational Stress Questionnaire Feeling of Stress : Only a little Social Connections: Moderately Isolated (11/25/2022) Social Connection and Isolation Panel [NHANES] Frequency of Communication with Friends and Family: More than three times a week Frequency of Social Gatherings with Friends and Family: Once a week Attends Sabianist Services: Never Active Member of Clubs or [...] 9 Alex Tam DPM [facility] Other Medical (Routine) - Closed Specialty Diagnoses / Procedures Referred By Aminah t Referred To Contact Neurology Diagnoses Numbness of hand Procedures [place] OFFICE/OUTPATIENT NEW HIGH MDM 60 MINUTES Kamila Castillo, CLASS A TRUCK DRIVER [address] [facility] [address] [place] [address] Phone: tel: fax: Waqas Dugan DO [address] [place] [address] Phone: tel: fax: Referral ID Status Reason Start Date Expiration Date V isits Requested Visits Authorized [id number] Closed Perform Procedure 03/05/2024 09/01/2024 1 1 [facility] Chief Complaint * New problem * Right shoulder pain MP Refer : RT shoulder ultra sound guided injection* Right shoulder pain, here for injection. 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 Summary Purpose Family History No Family [...] and content) DATE CREATED AUTHOR 09/08/2022 [facility] DATE CREATED AUTHOR AUTHOR'S ORGANIZ ATION 09/12/2022 [facility] dical Specialist DATE CREATED AUTHOR AUTHOR'S ORGANIZ ATION 10/09/2022 [facility] DATE CREATED AUTHOR AUTHOR'S ORGANIZ ATION 10/09/2022 [employer] DATE CREATED AUTHOR AUTHOR'S ORGANIZ ATION 05/01/2024 [facility] DATE CREATED AUTHOR AUTHOR'S ORGANIZ ATION 05/24/2024 [facility] dical Specialists EPIC DATE CREATED AUTHOR AUTHOR'S ORGANIZ ATION 05/24/2024 [facility] Reason for Visit (unrecogniz ed section and content) Reason Comments Ingrown Toenail Rt ingrown Reason Comments Ingrown Toenail F/U ingrown Reason Comments Toenail Care Non DM Nails Reason Onset Date Comments Med Refill 02/29/2024 Reason Comments Follow-up Hypertension Reason Comments Fall @ weeks ago pt fell and hit her walker going up steps. Reason Comments Med Refill Reason Comments Toenail Care Non dm nail care Care Teams (unrecognized sec tion and content) Systems Design Engineer Relationship Specialty Start Date End Date Roc Steele MD [address] [facility] [address] [place] [address] PCP - ACO Reach 09/22/22 Roc Steele MD [address] [facility] [address] [place] [address] PCP - General Internal Medicine 09/28/22 Systems Design Engineer Relationship Specialty Start Date End Date Roc Steele MD [address] [address] [place] [address] PCP - ACO Reach 09/22/22 Roc Steele MD [address] [facility] [address] [place] [address] PCP - General Internal Medicine 09/28/22 Systems Design Engineer Relationship Specialty Start Date End Date Roc Steele MD [address] [place] [address] PCP - ACO Reach 09/22/22 Roc Steele MD [address] [place] [address] PCP - General Internal Medicine 09/28/22 Systems Design Engineer Relationship Specialty Start Date End Date Roc Steele MD [address] [facility] [place] [address] PCP - General Internal Medicine 09/28/22 Roc Steele MD [address] [place] [address] PCP - ACO Reach 08/30/23 Systems Design Engineer Relationship Specialty Start Date End Date Roc Steele MD [address] [place] [address] PCP - General Internal Medicine 09/28/22 Roc Steele MD [address] [address] [place] [address] PCP - ACO Reach 08/30/23 Systems Design Engineer Relationship Specialty Start Date End Date Roc Steele MD [address] [place] [address] PCP - General Internal Medicine 09/28/22 Roc Steele MD [address] [place] [address] PCP - ACO Reach 08/30/23 Systems Design Engineer Relationship Specialty Start Date End Date Roc Steele MD [address] [place] [address] PCP - General Internal Medicine 09/28/22 Roc Steele MD [address] [place] [address] PCP - ACO Reach 08/30/23 Systems Design Engineer Relationship Specialty Start Date End Date Roc Steele MD [address] [place] [address] PCP - General Internal Medicine 09/28/22 Roc Steele MD [address] [place] [address] PCP - ACO Reach 08/30/23 Systems Design Engineer Relationship Specialty Start Date End Date Roc Steele MD [address] [place] [address] PCP - General Internal Medicine 09/28/22 Roc Steele MD [address] [place] [address] PCP - ACO Reach 08/30/23 Systems Design Engineer Relationship Specialty Start Date End Date Roc Steele MD [address] [place] [address] PCP - General Internal Medicine 09/28/22 Roc Steele MD [address] [place] [address] PCP - ACO Reach 08/30/23 Waqas Dugan DO [address] [place] [address] Referring Physician Neurology 03/07/24 Systems Design Engineer Relationship Specialty Start Date End Date Roc Steele MD [address] [place] [address] PCP - General Internal Medicine 09/28/22 Roc Steele MD [address] [place] [address] PCP - ACO Reach 08/30/23 Waqas Dugan DO [address] [place] [address] Referring Physician Neurology 03/07/24 Systems Design Engineer Relationship Specialty Start Date End Date Roc Steele MD [address] [place] [address] PCP - General Internal Medicine 09/28/22 Roc Steele MD [address] [place] [address] PCP - ACO Reach 08/30/23 Waqas Dugan DO [address] [place] [address] Referring Physician Neurology 03/07/24 Systems Design Engineer Relationship Specialty Start Date End Date Roc Steele MD [address] [place] [address] PCP - General Internal Medicine 09/28/22 Roc Steele MD [address] [place] [address] PCP - ACO Reach 08/30/23 Waqas Dugan DO [address] [place] [address] Referring Physician Neurology 03/07/24 Systems Design Engineer Relationship Specialty Start Date End Date Roc Steele MD [address] [place] [address] PCP - General Internal Medicine 09/28/22 Roc Steele MD [address] [place] [address] PCP - ACO Reach 08/30/23 Waqas Dugan DO [address] [place] [address] Referring Physician Neurology 03/07/24 Systems Design Engineer Relationship Specialty Start Date End Date Roc Steele MD [address] [place] [address] PCP - General Internal Medicine 09/28/22 Roc Steele MD [address] [place] [address] PCP - ACO Reach 08/30/23 Systems Design Engineer Relationship Specialty Start Date End Date Roc Steele MD [address] [place] [address] PCP - General Internal Medicine 09/28/22 Roc Steele MD [address] [place] [address] PCP - ACO Reach 08/30/23 Waqas Dugan DO [address] [place] [address] Referring Physician Neurology 03/07/24 Systems Design Engineer Relationship Specialty Start Date End Date Roc Steele MD [address] [place] [address] PCP - General Internal Medicine 09/28/22 Roc Steele MD [address] [place] [address] PCP - ACO Reach 08/30/23 Waqas Dugan DO [address] [place] [address] Referring Physician Neurology 03/07/24 Systems Design Engineer Relationship Specialty Start Date End Date Roc Steele MD [address] [place] [address] PCP - General Internal Medicine 09/28/22 Roc Steele MD [address] [place] [address] PCP - ACO Reach 08/30/23 Waqas Dugan DO [address] [place] [address] Referring Physician Neurology 03/07/24 Systems Design Engineer Relationship Specialty Start Date End Date Roc Steele MD [address] [place] [address] PCP - General Internal Medicine 09/28/22 Roc Steele MD [address] [place] [address] PCP - ACO Reach 08/30/23 Waqas Dugan DO [address] [place] [address] Referring Physician Neurology 03/07/24 Systems Design Engineer Relationship Specialty Start Date End Date Roc Steele MD [address] [place] [address] PCP - General Internal Medicine 09/28/22 Roc Steele MD [address] [place] [address] PCP - ACO Reach 08/30/23 Waqas Dugan DO [address] [place] [address] Referring Physician Neurology 03/07/24 Systems Design Engineer Relationship Specialty Start Date End Date Roc Steele MD [address] [place] [address] PCP - General Internal Medicine 09/28/22 Roc Steele MD [address] [place] [address] PCP - ACO Reach 08/30/23 Waqas Dugan DO [address] [place] [address] Referring Physician Neurology 03/07/24 Systems Design Engineer Relationship Specialty Start Date End Date Roc Steele MD [address] [facility] [address] [place] [address] PCP - General Internal Medicine 09/28/22 Roc Steele MD [address] [facility] [address] [place] [address] PCP - ACO Reach 08/30/23 Waqas Dugan DO [address] [place] [address] Referring Physician Neurology 03/07/24 FOR RECORDS PERTAINING [...] BE BASED ON THE PRIMARY CLINICAL RECORDS. [facility]. provides no warranty or guarantee of the accuracy or completeness of information in this document.
--- NOTE | 2024-06-09 12:32 | ECG_ITS ---
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
--- NOTE | 2024-06-09 12:32 | XR_ITS ---
[address] [address] Patient Name: LUMA RIBEIRO MRN: [id number] date: 1945 Sex: F Assigned Patient Location: ER Current Patient Location: ED.MAIN Accession/Order Number: [id number] Exam Date: 06/09/2024 12:47 Report Date: 06/09/2024 14:48 At the request of: GILBERT BARRAGAN Procedure: XR chest 1V EXAM: XR chest 1V HISTORY: cough COMPARISON: 05/16/2024. 09/02/2022. TECHNIQUE: AP upright portable. FINDINGS: Stable cardiac enlargement. Atherosclerotic calcification of the thoracic aorta. Pulmonary vascularity is within normal limits. Chronic mild bilateral reticular pulmonary opacities, likely secondary to underlying pulmonary fibrosis. Evidence of chronic right glenohumeral dislocation. Diffuse demineralization. XR/XR chest 1V IMPRESSION: 1. Stable cardiac enlargement. 2. Chronic bilateral mild peripheral reticular pulmonary opacities, likely secondary to underlying mild pulmonary fibrosis. 3. 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 Electronically authenticated by: GEMA GATICA Date: 06/09/2024 14:48
[2024-06-09 12:44] LABS: Basophils Percent Auto 0.5 % (0.2-2.0); Eosinophils Percent Auto 0.6 % (0.9-7.0); Hematocrit 41.7 % (36.0-48.0); Immature Granulocytes Abs Auto 0.01 10^3/uL (0.00-0.03); Immature Granulocytes Pct Auto 0.2 % (0.0-0.5); Lymphocytes Absolute Auto 1.8 10^3/uL (1.2-3.8); Lymphocytes Percent Auto 28.9 % (20.5-60.0); Mean Corpuscular HGB Conc 33.6 g/dL (29.9-35.2); Mean Corpuscular Hemoglobin 32.6 pg (26.7-34.0); Mean Platelet Volume 10.1 fL (9.5-13.5); Monocytes Absolute Auto 0.7 10^3/uL (0.3-0.8); Monocytes Percent Auto 10.4 % (1.7-12.0); Neutrophils Absolute Auto 3.8 10^3/uL (1.4-6.5); Neutrophils Percent Auto 59.4 % (43.0-75.0); Platelet Count 261 10^3/uL (150-450); Red Cell Distribution Width 14.1 % (11.0-15.0); White Blood Count 6.4 10^3/uL (4.0-11.0)
[2024-06-09 12:59] LABS: INR 1.16; Prothrombin Time 12.1 sec (9.0-11.6)
[2024-06-09 13:05] LABS: Alanine Aminotransferase 22 U/L (14-59); Albumin Level 3.3 g/dL (3.4-5.0); Alkaline Phosphatase 113 U/L (46-116); Anion Gap 14.2; Aspartate Amino Transferase 32 U/L (15-37); BUN Creatinine Ratio 8.9; Bilirubin Total 0.8 mg/dL (0.2-1.0); Calcium 8.9 mg/dL (8.5-10.1); Carbon Dioxide 27.4 mmol/L (21.0-32.0); Chloride 104 mmol/L (98-107); Estimated GFR (African America 51 (>=60 mL/min/1.73m^2); Estimated GFR (Non-African Ame 42 (>=60 mL/min/1.73m^2); Globulin 3.4 g/dL; Glucose 193 mg/dL (74-106); Magnesium 1.8 mg/dL (1.8-2.4); Potassium 3.6 mmol/L (3.5-5.1); Sodium 142 mmol/L (136-145); Total Protein 6.7 g/dL (6.4-8.2); Troponin I High Sensitivity 25.7 pg/mL (4.0-51.3)
--- NOTE | 2024-06-09 13:25 | ECG_ITS ---
The [facility] Test Date: 2024-06-09 Pat Name: LUMA RIBEIRO Department: Room: - Gender: Female Teaching Manager: : 1945 Requested By: REJI FORRESTER Order Number: [id number] Reading MD: CARMEN GARCIA Measurements Intervals [place] Rate: 91 P: 48 MT: 168 QRS: -32 QRSD: 98 T: -20 QT: 372 QTc: 421 Interpretive Statements 1100 Sinus rhythm lat and inf T inversion - conside inf-lat ischemia Electronically Signed On 06-10-2024 6:59:41 EST by CARMEN GARCIA
--- NOTE | 2024-06-09 13:41 | ED_ITS ---
HPI - Arrhythmia/Palpitations General Chief Complaint: Arrhythmia/Palpitations Stated Complaint: PALPITATIONS Time Seen by Provider: 06/09/24 12:24 Source: patient Mode of arrival: ambulance History of Present Illness HPI narrative: The patient is a 78 years old female who recently almost 2 weeks ago admitted for pneumonia and CHF exacerbation and she was started then on beta-federica to control her heart rate, the patient is coming to us after she was checking her pulse ox at home and apparently felt that she is tachycardic heart rate was 130. The patient called the EMS and she was brought to us for evaluation, the patient denies any dizziness in the moment denies any other concerns She denies any chest pain at any time or difficulty breathing Related Data Home Medications ?Medication ?Instructions ?Recorded ?Confirmed alprazolam 0.25 mg tablet 0.25 mg PO BID PRN anxiety 12/01/22 06/09/24 gabapentin 300 mg capsule 300 mg PO BID 12/01/22 06/09/24 hydrocodone 5 mg-acetaminophen 325 1 tab PO Q6H PRN pain 12/01/22 06/09/24 mg tablet meloxicam 15 mg tablet 15 mg PO DAILY 12/01/22 06/09/24 nortriptyline 10 mg capsule 30 mg PO BEDTIME 12/01/22 06/09/24 pantoprazole 40 mg tablet,delayed 40 mg PO DAILY 12/01/22 06/09/24 release simvastatin 10 mg tablet 10 mg PO DAILY 12/01/22 06/09/24 zolpidem 10 mg tablet 10 mg PO DAILY 12/01/22 06/09/24 tizanidine 4 mg tablet 4 mg PO DAILY 05/12/24 06/09/24 codeine 10 mg-guaifenesin 100 mg/5 ml 06/09/24 mL oral liquid methylprednisolone 4 mg tablets in mg 06/09/24 a dose pack Previous Rx's ?Medication ?Instructions ?Recorded doxycycline hyclate 100 mg tablet 100 mg PO BID 7 days #14 tabs 05/14/24 furosemide 20 mg tablet (Lasix) 20 mg PO DAILY PRN edema #7 tabs 05/14/24 metoprolol succinate 50 mg 50 mg PO BID #0 tabs 05/14/24 tablet,extended release 24 hr Allergies Allergy/AdvReac Type Severity Reaction Status Date / Time clarithromycin Allergy Severe Rash Verified 12/01/22 14:27 moxifloxacin (From Avelox) Allergy Severe tongue Verified 12/01/22 14:27 swelling Sulfa (Sulfonamide Allergy Unknown Verified 12/01/22 14:27 Antibiotics) ciprofloxacin (From Cipro) Allergy Rash Verified 12/01/22 14:27 Review of Systems ROS Status of ROS 10 or more systems reviewed and unremark able except as noted in history and below [facility] Medical History (Updated 06/09/24 @ 14:17 by Traci Shaver MD) Benign essential hypertension ?I10 - Essential (primary) hypertension (ICD-10) Chronic heart failure with preserved ejection fraction (HFpEF) ?I50.32 - Chronic diastolic (congestive) heart failure (ICD-10) Generalized weakness ?R53.1 - Weakness (ICD-10) Fall ?W19.XXXA - Unspecified fall, initial encounter (ICD-10) Pulmonary edema ?J81.1 - Chronic pulmonary edema (ICD-10) Closed head injury ?S09.90XA - Unspecified injury of head, initial encounter (ICD-10) Contusion of right knee ?S80.01XA - Contusion of right knee, initial encounter (ICD-10) Abrasion of elbow, right ?S50.311A - Abrasion of right elbow, initial encounter (ICD-10) Pneumonia ?J18.9 - Pneumonia, unspecified organism (ICD-10) Acute CHF (congestive heart failure) ?I50.9 - Heart failure, unspecified (ICD-10) Acute kidney injury ?N17.9 - Acute kidney failure, unspecified (ICD-10) Community acquired pneumonia ?J18.9 - Pneumonia, unspecified organism (ICD-10) GERD without esophagitis ?K21.9 - Gastro-esophageal reflux disease without esophagitis (ICD-10) Lump of left breast ?N63.20 - Unspecified lump in the left breast, unspecified quadrant (ICD-10) High cholesterol ?E78.00 - Pure hypercholesterolemia, unspecified (ICD-10) High blood pressure ?I10 - Essential (primary) hypertension (ICD-10) Anxiety ?F41.9 - Anxiety disorder, unspecified (ICD-10) Macular degeneration ?H35.30 - Unspecified macular degeneration (ICD-10) Degenerative disc disease Fibromyalgia ?M79.7 - Fibromyalgia (ICD-10) Right shoulder pain ?M25.511 - Pain in right shoulder (ICD-10) Sleep apnea ?G47.30 - Sleep apnea, unspecified (ICD-10) Surgical History Carpal tunnel syndrome, left ?G56.02 - Carpal tunnel syndrome, left upper limb (ICD-10) History of arthroplasty of right ankle ?Z96.661 - Presence of right artificial ankle joint (ICD-10) History of bilateral knee replacement ?Z96.653 - Presence of artificial knee joint, bilateral (ICD-10) History of right hip replacement ?Z96.641 - Presence of right artificial hip joint (ICD-10) Family History Mother Family history of CHF (congestive heart failure) Sister Family history of CHF (congestive heart failure) Son Family history of cancer Family history of diabetes mellitus Family history of hypertension Social History Within the past year, how often did you have a drink containing alcohol: never Score interpretation: A score less than 3 is consistent with normal alcohol consumption. Smoking status: Never smoker Non-prescribed substance use: denies use Previous occupational history: retired Highest level of school completed/degree received: GED or equivalent Are you now , , , , never or living with a partner: In a typical week, how many times do you talk on the telephone with family, friends, or neighbors: 3 or more times per week How often do you get together with friends or relatives: 3 or more times per week How often do you attend restorationist or baptism services: never Little interest or pleasure in doing things: not at all Feeling down, depressed, or hopeless: not at all Feel stressed/tense/nervous/anxious/difficulty sleeping: not at all Do you think of yourself as: straight/heterosexual Gender Identity: female Exam Narrative Exam Narrative: Nurses notes and vital signs reviewed and patient is not hypoxic. General: Well-appearing and in no apparent distress. Skin: Warm, dry, no pallor noted. No rash. Head: Normocephalic, atraumatic. Neck: Supple, non-tender. Eye: Pupils are equal, round and EOMI. No scleral icterus. Ears, Nose, Mouth, and Throat: TM are clear, no nasal mucosal hypertrophy. Oral mucosa is moist, no posterior oropharynx erythema, uvula is mid-line Cardiovascular: Regular Rate and Rhythm without murmur, gallop or rub. Respiratory: No accessory muscle use or respiratory distress. Lungs are clear to auscultation, no wheezing, rales or rhonchi Chest Wall: no tenderness Back: No midline thoracic or lumbar vertebral tenderness. No CVA tenderness Musculoskeletal: normal ROM, no calf or popliteal tenderness, no lower extremity edema/swelling GI: Abdomen is soft, non-distended. Normal bowel sounds. No masses appreciated. No tenderness to palpation. No rebound, guarding, or rigidity noted. Neurological: A&O x4. No cranial nerve dysfunction observed. No truncal ataxia. Moves all extremities. Sensation intact. Psychiatric: Cooperative and interactive. Normal mood and affect. Constitutional Vital Signs, click to edit/add: Last Vital Signs Temp 99.0 F 06/09/24 12:17 Pulse 94 H 06/09/24 13:21 Resp 10 L 06/09/24 13:21 BP 133/62 06/09/24 12:22 Pulse Ox 94 L 06/09/24 12:20 Course Vital Signs Vital signs: Vital Signs Temperature 99.0 F 06/09/24 12:17 Pulse Rate 95 H 06/09/24 12:17 Respiratory Rate 18 06/09/24 12:17 Blood Pressure 133/62 06/09/24 12:17 Pulse Oximetry 99 06/09/24 12:17 Temperature 99.0 F 06/09/24 12:17 Pulse Rate 94 H 06/09/24 13:21 Respiratory Rate 10 L 06/09/24 13:21 Blood Pressure 133/62 06/09/24 12:22 Pulse Oximetry 94 L 06/09/24 12:20 MDM - Arrhythmia/Palpitations MDM Narrative Medical decision making narrative: The patient EKG in the ER was showing sinus rhythm with a heart rate of 91. And there was another initially EKG that shows heart rate of 106 with multiple artifacts but still no ST elevation or depression The patient chest x-ray showed no acute pathology CBC and chemistry also showed no acute pathology with the chronic kidney disease I reviewed the patient last for evaluation by cardiology here and she was referred to see a channel business manager as outpatient, they were already increasing her beta-federica the plan and right now with her history of congestive heart failure she was instructed about just increasing 1 cup of water to her regular hydration The patient is to follow up with primary care physician in next 2-3 days or to return to the emergency department should any of the signs or symptoms worsen or new symptoms develop. The patient agrees with the following Diagnosis and Treatment plan and the patient will be discharged home. Lab Data Labs: Lab Results 06/09/24 Range/Units 12:33 WBC 6.4 (4.0-11.0) 10^3/uL RBC 4.30 (4.20-5.40) 10^6/uL Hgb 14.0 (12.0-16.0) g/dL Hct 41.7 (36.0-48.0) % MCV 97.0 (81.0-99.0) fL MCH 32.6 (26.7-34.0) pg MCHC 33.6 (29.9-35.2) g/dL RDW 14.1 (11.0-15.0) % Plt Count 261 (150-450) 10^3/uL MPV 10.1 (9.5-13.5) fL Neut % (Auto) 59.4 (43.0-75.0) % Lymph % (Auto) 28.9 (20.5-60.0) % Jennings % (Auto) 10.4 (1.7-12.0) % Eos % (Auto) 0.6 L (0.9-7.0) % Baso % (Auto) 0.5 (0.2-2.0) % Neut # (Auto) 3.8 (1.4-6.5) 10^3/uL Lymph # (Auto) 1.8 (1.2-3.8) 10^3/uL Jennings # (Auto) 0.7 (0.3-0.8) 10^3/uL Eos # (Auto) 0.0 (0.0-0.7) 10^3/uL Baso # (Auto) 0.0 (0.0-0.1) 10^3/uL Abs Immat Gran (auto) 0.01 (0.00-0.03) 10^3/uL Imm/Tot Granulo (auto) 0.2 (0.0-0.5) % PT 12.1 H (9.0-11.6) sec INR 1.16 Sodium 142 (136-145) mmol/L Potassium 3.6 (3.5-5.1) mmol/L Chloride 104 (98-107) mmol/L Carbon Dioxide 27.4 (21.0-32.0) mmol/L Anion Gap 14.2 BUN 11.0 (7.0-18.0) mg/dL Creatinine 1.24 H (0.55-1.02) mg/dL Est GFR ( Amer) 51 L (>=60 mL/min/1.73m^2) Est GFR (Non-Af Amer) 42 L (>=60 mL/min/1.73m^2) BUN/Creatinine Ratio 8.9 Glucose 193 H (74-106) mg/dL Calcium 8.9 (8.5-10.1) mg/dL Magnesium 1.8 (1.8-2.4) mg/dL Total Bilirubin 0.8 (0.2-1.0) mg/dL AST 32 (15-37) U/L ALT 22 (14-59) U/L Alkaline Phosphatase 113 (46-116) U/L Troponin I High Sens 25.7 (4.0-51.3) pg/mL Total Protein 6.7 (6.4-8.2) g/dL Albumin 3.3 L (3.4-5.0) g/dL Globulin 3.4 g/dL Albumin/Globulin Ratio 1.0 Discharge Plan Discharge Chief Complaint: Arrhythmia/Palpitations Clinical Impression: Palpitations Patient Disposition: Home, Self-Care Time of Disposition Decision: 14:17 Condition: Good Prescriptions / Home Meds: No Action alprazolam 0.25 mg tablet 0.25 mg PO BID PRN (Reason: anxiety) gabapentin 300 mg capsule 300 mg PO BID hydrocodone-acetaminophen 5-325 mg tablet 1 tab PO Q6H PRN (Reason: pain) meloxicam 15 mg tablet 15 mg PO DAILY nortriptyline 10 mg capsule 30 mg PO BEDTIME pantoprazole 40 mg tablet,delayed release (DR/EC) 40 mg PO DAILY simvastatin 10 mg tablet 10 mg PO DAILY zolpidem 10 mg tablet 10 mg PO DAILY tizanidine 4 mg tablet 4 mg PO DAILY doxycycline hyclate 100 mg tablet 100 mg PO BID 7 Days Qty: 14 0RF furosemide [Lasix] 20 mg tablet 20 mg PO DAILY PRN (Reason: edema) Qty: 7 0RF metoprolol succinate 50 mg tablet extended release 24 hr 50 mg PO BID Qty: 0 0RF codeine-guaifenesin 10-100 mg/5 mL liquid methylprednisolone 4 mg tablets,dose pack Print Language: Rw[place]an Instructions: Heart Palpitations (DC) Referrals: REJI FORRESTER [Primary Care Provider] - 1 week AILEEN WEAVER MD [Physician] - 1 week
== END 2024-06-09 15:55 | disposition home or self-care (01) ==
PROVIDERS: Emergency Provider Emergency Medicine; PCP Internal Medicine
DX: R00.2 Palpitations (principal); I50.9 Heart failure, unspecified; Z87.01 Personal history of pneumonia (recurrent); Z79.899 Other long term (current) drug therapy; Z96.653 Presence of artificial knee joint, bilateral; Z96.641 Presence of right artificial hip joint; Z96.661 Presence of right artificial ankle joint; N18.9 Chronic kidney disease, unspecified
CPT/HCPCS: 36415; 71045; 80053; 83735; 84484; 85025; 85610; 93005; 99285

== ENCOUNTER 2024-06-14 13:31 | Emergency (ER) | payer MEDICARE, OTHER, SELFPAY ==
[2024-06-14 13:34] VITALS: BP 192/99; PULSE 72; O2SAT 97; BMI 46.3
--- NOTE | 2024-06-14 13:43 | CT_ITS ---
[address] [address] Patient Name: LUMA RIBEIRO MRN: [id number] date: 1945 Sex: F Assigned Patient Location: ER Current Patient Location: ER Accession/Order Number: [id number] Exam Date: 06/14/2024 13:45 Report Date: 06/14/2024 14:29 At the request of: CRISTEL KHAN Procedure: CT head/brain wo con CT head without contrast CLINICAL: fall . TECHNIQUE: Contiguous transaxial images were obtained from skull base to vertex without administration of intravenous contrast. Dose reduction: mA and/or kV are were adjusted by automated exposure control software based upon patients height and weight. FINDINGS: Comparison made to head CT dated 05/16/2024. There is a large right parietal scalp hematoma. There is no underlying acute calvarial fracture. The visualized globes and orbits are grossly normal. There is minimal paranasal sinus mucosal thickening without air-fluid levels. Bilateral mastoid air cells are clear. The ventricles and sulci are prominent bilaterally. There is periventricular and deep subcortical white matter low attenuation consistent with small vessel ischemic disease. There are tiny old basal ganglia and external capsule lacunar infarcts. There is no intraparenchymal hemorrhage, extraaxial fluid collection, mass lesion, or acute large territory ischemia by noncontrast CT. There is intracranial atherosclerosis. CT/CT head/brain wo con IMPRESSION: 1. No acute intracranial hemorrhage or acute large territory ischemia by noncontrast CT. 2. Cerebral atrophy and chronic small vessel ischemic disease. 3. Intracranial atherosclerosis. 4. Large right parietal scalp hematoma. If the patient has a focal neurologic deficit or there is clinical suspicion for acute cerebrovascular accident, brain MRI would be recommended for further evaluation. CT cervical spine CLINICAL: fall . TECHNIQUE: Contiguous transaxial images obtained from skullbase through cervical spine without administration of intravenous contrast. Coronal and sagittal reformations were obtained. Dose reduction: mA and/or kV are were adjusted by automated exposure control software based upon patients height and weight. FINDINGS: There are no prior exams for comparison. There is straightening of the cervical spine with loss of normal cervical lordosis. There is no prevertebral soft tissue swelling or acute cervical spine fracture. There is mild degenerative disc disease of the cervical spine with minimal anterolisthesis of C4 on C5. There is minimal multilevel uncovertebral joint osteoarthritis. There is multilevel and bilateral facet joint osteoarthritis with left C3-4 facet ankylosis. Uncovertebral and facet joint osteoarthritis contribute to neural foraminal narrowing. Neural foraminal narrowing is most pronounced on the right at C4-5. Neural foraminal narrowing is most pronounced on the left at C3-4 and C4-5. There is atlantodental articulation osteoarthritis. There is carotid and vertebral artery atherosclerosis. IMPRESSION: 1. No acute cervical spine fracture. 2. Straightening of the cervical spine is likely positional or related to muscle spasm. 3. Mild degenerative disc disease of the cervical spine with minimal anterolisthesis of C4 on C5. 4. Uncovertebral and facet joint osteoarthritis contribute to neural foraminal narrowing that is most pronounced on the left at C3-4 and bilaterally at C4-5. 5. Carotid and vertebral artery atherosclerosis. CT facial bones without contrast CLINICAL: fall . TECHNIQUE: Contiguous transaxial images obtained through the facial bones without the administration of intravenous contrast. Coronal and sagittal reformations were obtained. Dose reduction: mA and/or kV are were adjusted by automated exposure control software based upon patients height and weight. FINDINGS: Comparison made to CT facial bones dated 12/01/2022. There is no focal facial soft tissue swelling. There is no acute facial bone fracture. There is minimal paranasal sinus mucosal thickening without air-fluid levels. Bilateral mastoid air cells are clear. Bilateral globes and orbits are grossly normal for age. IMPRESSION: 1. No acute facial bone fracture. Electronically authenticated by: YVETTE MARTE Date: 06/14/2024 14:29
--- NOTE | 2024-06-14 13:43 | CT_ITS ---
The [address] [address] Patient Name: LUMA RIBEIRO MRN: [id number] date: 1945 Sex: F Assigned Patient Location: ER Current Patient Location: ER Accession/Order Number: [id number] Exam Date: 06/14/2024 13:45 Report Date: 06/14/2024 14:29 At the request of: CRISTEL KHAN Procedure: CT facial bones wo con CT head without contrast CLINICAL: fall . TECHNIQUE: Contiguous transaxial images were obtained from skull base to vertex without administration of intravenous contrast. Dose reduction: mA and/or kV are were adjusted by automated exposure control software based upon patients height and weight. FINDINGS: Comparison made to head CT dated 05/16/2024. There is a large right parietal scalp hematoma. There is no underlying acute calvarial fracture. The visualized globes and orbits are grossly normal. There is minimal paranasal sinus mucosal thickening without air-fluid levels. Bilateral mastoid air cells are clear. The ventricles and sulci are prominent bilaterally. There is periventricular and deep subcortical white matter low attenuation consistent with small vessel ischemic disease. There are tiny old basal ganglia and external capsule lacunar infarcts. There is no intraparenchymal hemorrhage, extraaxial fluid collection, mass lesion, or acute large territory ischemia by noncontrast CT. There is intracranial atherosclerosis. CT/CT facial bones wo con IMPRESSION: 1. No acute intracranial hemorrhage or acute large territory ischemia by noncontrast CT. 2. Cerebral atrophy and chronic small vessel ischemic disease. 3. Intracranial atherosclerosis. 4. Large right parietal scalp hematoma. If the patient has a focal neurologic deficit or there is clinical suspicion for acute cerebrovascular accident, brain MRI would be recommended for further evaluation. CT cervical spine CLINICAL: fall . TECHNIQUE: Contiguous transaxial images obtained from skullbase through cervical spine without administration of intravenous contrast. Coronal and sagittal reformations were obtained. Dose reduction: mA and/or kV are were adjusted by automated exposure control software based upon patients height and weight. FINDINGS: There are no prior exams for comparison. There is straightening of the cervical spine with loss of normal cervical lordosis. There is no prevertebral soft tissue swelling or acute cervical spine fracture. There is mild degenerative disc disease of the cervical spine with minimal anterolisthesis of C4 on C5. There is minimal multilevel uncovertebral joint osteoarthritis. There is multilevel and bilateral facet joint osteoarthritis with left C3-4 facet ankylosis. Uncovertebral and facet joint osteoarthritis contribute to neural foraminal narrowing. Neural foraminal narrowing is most pronounced on the right at C4-5. Neural foraminal narrowing is most pronounced on the left at C3-4 and C4-5. There is atlantodental articulation osteoarthritis. There is carotid and vertebral artery atherosclerosis. IMPRESSION: 1. No acute cervical spine fracture. 2. Straightening of the cervical spine is likely positional or related to muscle spasm. 3. Mild degenerative disc disease of the cervical spine with minimal anterolisthesis of C4 on C5. 4. Uncovertebral and facet joint osteoarthritis contribute to neural foraminal narrowing that is most pronounced on the left at C3-4 and bilaterally at C4-5. 5. Carotid and vertebral artery atherosclerosis. CT facial bones without contrast CLINICAL: fall . TECHNIQUE: Contiguous transaxial images obtained through the facial bones without the administration of intravenous contrast. Coronal and sagittal reformations were obtained. Dose reduction: mA and/or kV are were adjusted by automated exposure control software based upon patients height and weight. FINDINGS: Comparison made to CT facial bones dated 12/01/2022. There is no focal facial soft tissue swelling. There is no acute facial bone fracture. There is minimal paranasal sinus mucosal thickening without air-fluid levels. Bilateral mastoid air cells are clear. Bilateral globes and orbits are grossly normal for age. IMPRESSION: 1. No acute facial bone fracture. Electronically authenticated by: YVETTE MARTE Date: 06/14/2024 14:29
--- NOTE | 2024-06-14 13:43 | CT_ITS ---
The [address] [address] Patient Name: LUMA RIBEIRO MRN: [id number] date: 1945 Sex: F Assigned Patient Location: ER Current Patient Location: ER Accession/Order Number: [id number] Exam Date: 06/14/2024 13:45 Report Date: 06/14/2024 14:29 At the request of: RCISTEL KHAN Procedure: CT cervical spine wo con CT head without contrast CLINICAL: fall . TECHNIQUE: Contiguous transaxial images were obtained from skull base to vertex without administration of intravenous contrast. Dose reduction: mA and/or kV are were adjusted by automated exposure control software based upon patients height and weight. FINDINGS: Comparison made to head CT dated 05/16/2024. There is a large right parietal scalp hematoma. There is no underlying acute calvarial fracture. The visualized globes and orbits are grossly normal. There is minimal paranasal sinus mucosal thickening without air-fluid levels. Bilateral mastoid air cells are clear. The ventricles and sulci are prominent bilaterally. There is periventricular and deep subcortical white matter low attenuation consistent with small vessel ischemic disease. There are tiny old basal ganglia and external capsule lacunar infarcts. There is no intraparenchymal hemorrhage, extraaxial fluid collection, mass lesion, or acute large territory ischemia by noncontrast CT. There is intracranial atherosclerosis. CT/CT cervical spine wo con IMPRESSION: 1. No acute intracranial hemorrhage or acute large territory ischemia by noncontrast CT. 2. Cerebral atrophy and chronic small vessel ischemic disease. 3. Intracranial atherosclerosis. 4. Large right parietal scalp hematoma. If the patient has a focal neurologic deficit or there is clinical suspicion for acute cerebrovascular accident, brain MRI would be recommended for further evaluation. CT cervical spine CLINICAL: fall . TECHNIQUE: Contiguous transaxial images obtained from skullbase through cervical spine without administration of intravenous contrast. Coronal and sagittal reformations were obtained. Dose reduction: mA and/or kV are were adjusted by automated exposure control software based upon patients height and weight. FINDINGS: There are no prior exams for comparison. There is straightening of the cervical spine with loss of normal cervical lordosis. There is no prevertebral soft tissue swelling or acute cervical spine fracture. There is mild degenerative disc disease of the cervical spine with minimal anterolisthesis of C4 on C5. There is minimal multilevel uncovertebral joint osteoarthritis. There is multilevel and bilateral facet joint osteoarthritis with left C3-4 facet ankylosis. Uncovertebral and facet joint osteoarthritis contribute to neural foraminal narrowing. Neural foraminal narrowing is most pronounced on the right at C4-5. Neural foraminal narrowing is most pronounced on the left at C3-4 and C4-5. There is atlantodental articulation osteoarthritis. There is carotid and vertebral artery atherosclerosis. IMPRESSION: 1. No acute cervical spine fracture. 2. Straightening of the cervical spine is likely positional or related to muscle spasm. 3. Mild degenerative disc disease of the cervical spine with minimal anterolisthesis of C4 on C5. 4. Uncovertebral and facet joint osteoarthritis contribute to neural foraminal narrowing that is most pronounced on the left at C3-4 and bilaterally at C4-5. 5. Carotid and vertebral artery atherosclerosis. CT facial bones without contrast CLINICAL: fall . TECHNIQUE: Contiguous transaxial images obtained through the facial bones without the administration of intravenous contrast. Coronal and sagittal reformations were obtained. Dose reduction: mA and/or kV are were adjusted by automated exposure control software based upon patients height and weight. FINDINGS: Comparison made to CT facial bones dated 12/01/2022. There is no focal facial soft tissue swelling. There is no acute facial bone fracture. There is minimal paranasal sinus mucosal thickening without air-fluid levels. Bilateral mastoid air cells are clear. Bilateral globes and orbits are grossly normal for age. IMPRESSION: 1. No acute facial bone fracture. Electronically authenticated by: YVETTE MARTE Date: 06/14/2024 14:29
--- NOTE | 2024-06-14 13:45 | ED.GENADUL1 ---
HPI HPI - General Adult General Chief complaint: Fall Stated complaint: FALL Time Seen by Provider: 06/14/24 13:37 History of Present Illness HPI narrative: Patient is a 78-year-old female who is presenting by EMS without a cervical collar, patient does not take blood thinners, history of mechanical fall in the garage. Patient was walking from the house into the garage, there is 3 steps. Patient has history of knee replacement, patient states that sometimes her legs will get caught up in each other. Patient states that her feet were tangled into each other, she had fallen backwards hitting her head. Patient hit the back of her head to the right occipital area onto the concrete. Patient had no loss of consciousness. No blood thinners. She does have a moderate headache. No nausea or vomiting. Patient is also complaining of right paracervical soft tissue pain along with right sided mandibular pain. Patient came in by EMS for evaluation. She has no other complaints or back, chest, abdomen, no other extremity complaints. All systems are negative except as noted/marked. All systems reviewed and otherwise negative. Nurses note and vital signs reviewed and patient is not hypoxic. General: The patient appears well and in no apparent distress. Patient is resting comfortably on cart. Patient is not toxic, lethargic, or listless Skin: Warm, dry, no pallor noted. There is no rash noted. No petechiae, purpura. Head: Normocephalic, scalp hematoma measuring approximately 3 x 3 cm, firm, no abrasions, no ecchymosis noted, no bleeding, no laceration. Patient was placed in a [place] soft collar when patient arrived, patient did not arrive in a cervical collar from EMS. Patient does have moderate soft tissue tenderness to palpation the right paracervical spine, patient has no midline cervical tenderness to palpation, patient has no left paracervical soft tissue tenderness to palpation. Patient has mild to moderate tenderness to palpation to right zygoma, right side of mandible, no significant swelling, ecchymosis, abrasion, deformity, no significant acute abnormality noted on physical exam to the right side. Dentition intact. Eye: Normal conjunctiva, no drainage, EOMI. PERRL Ears, Nose, Mouth, and Throat: oral mucosa is moist. Nares patent. Mouth without vesicles. Cardiovascular: Regular Rate and Rhythm, no murmur, gallop, rub Respiratory: Patient is in no distress, no accessory muscle use, lungs are clear to auscultation, no wheezing, rales or rhonchi Back: non-tender, no CVA tenderness bilaterally to percussion. No CT LS midline pain GI: Obese, no tenderness to palpation, no masses appreciated. No rebound, guarding, or rigidity noted. No distention Musculoskeletal: Patient has full range of motion of all of the extremities, no motor, sensory, or focal neurological deficits Neurological: A&O x4, normal speech Psychiatric: Cooperative Related Data Home Medications ?Medication ?Instructions ?Recorded ?Confirmed alprazolam 0.25 mg tablet 0.25 mg PO BID PRN anxiety 12/01/22 06/14/24 gabapentin 300 mg capsule 300 mg PO QDAY 12/01/22 06/14/24 hydrocodone 5 mg-acetaminophen 325 1 tab PO Q6H PRN pain 12/01/22 06/14/24 mg tablet meloxicam 15 mg tablet 15 mg PO DAILY 12/01/22 06/14/24 nortriptyline 10 mg capsule 30 mg PO BEDTIME 12/01/22 06/14/24 pantoprazole 40 mg tablet,delayed 40 mg PO DAILY 12/01/22 06/14/24 release simvastatin 10 mg tablet 10 mg PO DAILY 12/01/22 06/14/24 zolpidem 10 mg tablet 10 mg PO DAILY 12/01/22 06/14/24 tizanidine 4 mg tablet 4 mg PO DAILY 05/12/24 06/14/24 Previous Rx's ?Medication ?Instructions ?Recorded furosemide 20 mg tablet (Lasix) 20 mg PO DAILY PRN edema #7 tabs 05/14/24 metoprolol succinate 50 mg 50 mg PO BID #0 tabs 05/14/24 tablet,extended release 24 hr Allergies Allergy/AdvReac Type Severity Reaction Status Date / Time clarithromycin Allergy Severe Rash Verified 06/14/24 15:29 moxifloxacin (From Avelox) Allergy Severe tongue Verified 06/14/24 15:29 swelling Sulfa (Sulfonamide Allergy Unknown Unknown Verified 06/14/24 15:29 Antibiotics) ciprofloxacin (From Cipro) Allergy Rash Verified 06/14/24 15:29 Opioid HPI Opioid Management Most Recent Opioid Data: Last Pain Scale 5 06/14/24 14:29 06/14/24 Last Pain Intensity 8 05/18/24 10:15 05/18/24 Last MAR Pain Assessment 06/14/24 14:29 Last ORT Total Score 0 05/16/24 20:59 05/16/24 Last ORT Risk Category Low Risk 05/16/24 20:59 05/16/24 [facility] Medical History (Updated 06/14/24 @ 16:28 by Jose R Ramirez MD) Benign essential hypertension ?I10 - Essential (primary) hypertension (ICD-10) Chronic heart failure with preserved ejection fraction (HFpEF) ?I50.32 - Chronic diastolic (congestive) heart failure (ICD-10) Generalized weakness ?R53.1 - Weakness (ICD-10) Fall ?W19.XXXA - Unspecified fall, initial encounter (ICD-10) Pulmonary edema ?J81.1 - Chronic pulmonary edema (ICD-10) Closed head injury ?S09.90XA - Unspecified injury of head, initial encounter (ICD-10) Contusion of right knee ?S80.01XA - Contusion of right knee, initial encounter (ICD-10) Abrasion of elbow, right ?S50.311A - Abrasion of right elbow, initial encounter (ICD-10) Pneumonia ?J18.9 - Pneumonia, unspecified organism (ICD-10) Acute CHF (congestive heart failure) ?I50.9 - Heart failure, unspecified (ICD-10) Acute kidney injury ?N17.9 - Acute kidney failure, unspecified (ICD-10) Community acquired pneumonia ?J18.9 - Pneumonia, unspecified organism (ICD-10) GERD without esophagitis ?K21.9 - Gastro-esophageal reflux disease without esophagitis (ICD-10) Lump of left breast ?N63.20 - Unspecified lump in the left breast, unspecified quadrant (ICD-10) High cholesterol ?E78.00 - Pure hypercholesterolemia, unspecified (ICD-10) High blood pressure ?I10 - Essential (primary) hypertension (ICD-10) Anxiety ?F41.9 - Anxiety disorder, unspecified (ICD-10) Macular degeneration ?H35.30 - Unspecified macular degeneration (ICD-10) Degenerative disc disease Fibromyalgia ?M79.7 - Fibromyalgia (ICD-10) Right shoulder pain ?M25.511 - Pain in right shoulder (ICD-10) Sleep apnea ?G47.30 - Sleep apnea, unspecified (ICD-10) Surgical History Carpal tunnel syndrome, left ?G56.02 - Carpal tunnel syndrome, left upper limb (ICD-10) History of arthroplasty of right ankle ?Z96.661 - Presence of right artificial ankle joint (ICD-10) History of bilateral knee replacement ?Z96.653 - Presence of artificial knee joint, bilateral (ICD-10) History of right hip replacement ?Z96.641 - Presence of right artificial hip joint (ICD-10) Family History Mother Family history of CHF (congestive heart failure) Sister Family history of CHF (congestive heart failure) Son Family history of cancer Family history of diabetes mellitus Family history of hypertension Social History Within the past year, how often did you have a drink containing alcohol: never Score interpretation: A score less than 3 is consistent with normal alcohol consumption. Smoking status: Never smoker Non-prescribed substance use: denies use Previous occupational history: retired Highest level of school completed/degree received: GED or equivalent Are you now , , , , never or living with a partner: In a typical week, how many times do you talk on the telephone with family, friends, or neighbors: 3 or more times per week How often do you get together with friends or relatives: 3 or more times per week How often do you attend samaritan or rastafarian services: never Little interest or pleasure in doing things: not at all Feeling down, depressed, or hopeless: not at all Feel stressed/tense/nervous/anxious/difficulty sleeping: not at all Do you think of yourself as: straight/heterosexual Gender Identity: female Exam Constitutional Vital Signs, click to edit/add: Last Vital Signs Pulse 67 06/14/24 16:09 Resp 20 06/14/24 16:09 BP 146/88 H 06/14/24 16:09 Pulse Ox 99 06/14/24 16:09 O2 Del Method Room Air 06/14/24 13:34 Course Vital Signs Vital signs: Vital Signs Pulse Rate 72 06/14/24 13:34 Respiratory Rate 18 06/14/24 13:34 Blood Pressure 192/99 H 06/14/24 13:34 Pulse Oximetry 97 06/14/24 13:34 Oxygen Delivery Method Room Air 06/14/24 13:34 Pulse Rate 67 06/14/24 16:09 Respiratory Rate 20 06/14/24 16:09 Blood Pressure 146/88 H 06/14/24 16:09 Pulse Oximetry 99 06/14/24 16:09 Oxygen Delivery Method Room Air 06/14/24 13:34 Medical Decision Making MDM Narrative Medical decision making narrative: Patient was given [place] Zofran. Patient had a CT of the head, cervical spine, facial bones ordered. Patient is not on blood thinners. Patient CT of the head, cervical spine, and facial bones results were discussed with patient. I gave patient a copy of her CT report as well. Education on using Tylenol, ice, and treatment of head injury for the next several days was discussed at bedside. Patient will follow-up with PCP or return back to the ER for any other acute concerns. Patient was ambulated with her walker prior to discharge, patient is ambulating well without difficulty. No dizziness, vertigo, no other acute concerns. Patient feels good, patient feels very safe going home. Patient lives at home with her . Imaging Data CT scan - pelvis: Radiologist's impression: ITS Impressions Cervical Spine CT 06/14/24 13:43 IMPRESSION: 1. No acute intracranial hemorrhage or acute large territory ischemia by noncontrast CT. 2. Cerebral atrophy and chronic small vessel ischemic disease. 3. Intracranial atherosclerosis. 4. Large right parietal scalp hematoma. If the patient has a focal neurologic deficit or there is clinical suspicion for acute cerebrovascular accident, brain MRI would be recommended for further evaluation. CT cervical spine CLINICAL: fall . TECHNIQUE: Contiguous transaxial images obtained from skullbase through cervical spine without administration of intravenous contrast. Coronal and sagittal reformations were obtained. Dose reduction: mA and/or kV are were adjusted by automated exposure control software based upon patients height and weight. FINDINGS: There are no prior exams for comparison. There is straightening of the cervical spine with loss of normal cervical lordosis. There is no prevertebral soft tissue swelling or acute cervical spine fracture. There is mild degenerative disc disease of the cervical spine with minimal anterolisthesis of C4 on C5. There is minimal multilevel uncovertebral joint osteoarthritis. There is multilevel and bilateral facet joint osteoarthritis with left C3-4 facet ankylosis. Uncovertebral and facet joint osteoarthritis contribute to neural foraminal narrowing. Neural foraminal narrowing is most pronounced on the right at C4-5. Neural foraminal narrowing is most pronounced on the left at C3-4 and C4-5. There is atlantodental articulation osteoarthritis. There is carotid and vertebral artery atherosclerosis. IMPRESSION: 1. No acute cervical spine fracture. 2. Straightening of the cervical spine is likely positional or related to muscle spasm. 3. Mild degenerative disc disease of the cervical spine with minimal anterolisthesis of C4 on C5. 4. Uncovertebral and facet joint osteoarthritis contribute to neural foraminal narrowing that is most pronounced on the left at C3-4 and bilaterally at C4-5. 5. Carotid and vertebral artery atherosclerosis. CT facial bones without contrast CLINICAL: fall . TECHNIQUE: Contiguous transaxial images obtained through the facial bones without the administration of intravenous contrast. Coronal and sagittal reformations were obtained. Dose reduction: mA and/or kV are were adjusted by automated exposure control software based upon patients height and weight. FINDINGS: Comparison made to CT facial bones dated 12/01/2022. There is no focal facial soft tissue swelling. There is no acute facial bone fracture. There is minimal paranasal sinus mucosal thickening without air-fluid levels. Bilateral mastoid air cells are clear. Bilateral globes and orbits are grossly normal for age. IMPRESSION: 1. No acute facial bone fracture. Electronically authenticated by: YVETTE MARTE Date: 06/14/2024 14:[address] 06/14/24 13:43 IMPRESSION: 1. No acute intracranial hemorrhage or acute large territory ischemia by noncontrast CT. 2. Cerebral atrophy and chronic small vessel ischemic disease. 3. Intracranial atherosclerosis. 4. Large right parietal scalp hematoma. If the patient has a focal neurologic deficit or there is clinical suspicion for acute cerebrovascular accident, brain MRI would be recommended for further evaluation. CT cervical spine CLINICAL: fall . TECHNIQUE: Contiguous transaxial images obtained from skullbase through cervical spine without administration of intravenous contrast. Coronal and sagittal reformations were obtained. Dose reduction: mA and/or kV are were adjusted by automated exposure control software based upon patients height and weight. FINDINGS: There are no prior exams for comparison. There is straightening of the cervical spine with loss of normal cervical lordosis. There is no prevertebral soft tissue swelling or acute cervical spine fracture. There is mild degenerative disc disease of the cervical spine with minimal anterolisthesis of C4 on C5. There is minimal multilevel uncovertebral joint osteoarthritis. There is multilevel and bilateral facet joint osteoarthritis with left C3-4 facet ankylosis. Uncovertebral and facet joint osteoarthritis contribute to neural foraminal narrowing. Neural foraminal narrowing is most pronounced on the right at C4-5. Neural foraminal narrowing is most pronounced on the left at C3-4 and C4-5. There is atlantodental articulation osteoarthritis. There is carotid and vertebral artery atherosclerosis. IMPRESSION: 1. No acute cervical spine fracture. 2. Straightening of the cervical spine is likely positional or related to muscle spasm. 3. Mild degenerative disc disease of the cervical spine with minimal anterolisthesis of C4 on C5. 4. Uncovertebral and facet joint osteoarthritis contribute to neural foraminal narrowing that is most pronounced on the left at C3-4 and bilaterally at C4-5. 5. Carotid and vertebral artery atherosclerosis. CT facial bones without contrast CLINICAL: fall . TECHNIQUE: Contiguous transaxial images obtained through the facial bones without the administration of intravenous contrast. Coronal and sagittal reformations were obtained. Dose reduction: mA and/or kV are were adjusted by automated exposure control software based upon patients height and weight. FINDINGS: Comparison made to CT facial bones dated 12/01/2022. There is no focal facial soft tissue swelling. There is no acute facial bone fracture. There is minimal paranasal sinus mucosal thickening without air-fluid levels. Bilateral mastoid air cells are clear. Bilateral globes and orbits are grossly normal for age. IMPRESSION: 1. No acute facial bone fracture. Electronically authenticated by: YVETTE MARTE Date: 06/14/2024 14:[address] 06/14/24 13:43 IMPRESSION: 1. No acute intracranial hemorrhage or acute large territory ischemia by noncontrast CT. 2. Cerebral atrophy and chronic small vessel ischemic disease. 3. Intracranial atherosclerosis. 4. Large right parietal scalp hematoma. If the patient has a focal neurologic deficit or there is clinical suspicion for acute cerebrovascular accident, brain MRI would be recommended for further evaluation. CT cervical spine CLINICAL: fall . TECHNIQUE: Contiguous transaxial images obtained from skullbase through cervical spine without administration of intravenous contrast. Coronal and sagittal reformations were obtained. Dose reduction: mA and/or kV are were adjusted by automated exposure control software based upon patients height and weight. FINDINGS: There are no prior exams for comparison. There is straightening of the cervical spine with loss of normal cervical lordosis. There is no prevertebral soft tissue swelling or acute cervical spine fracture. There is mild degenerative disc disease of the cervical spine with minimal anterolisthesis of C4 on C5. There is minimal multilevel uncovertebral joint osteoarthritis. There is multilevel and bilateral facet joint osteoarthritis with left C3-4 facet ankylosis. Uncovertebral and facet joint osteoarthritis contribute to neural foraminal narrowing. Neural foraminal narrowing is most pronounced on the right at C4-5. Neural foraminal narrowing is most pronounced on the left at C3-4 and C4-5. There is atlantodental articulation osteoarthritis. There is carotid and vertebral artery atherosclerosis. IMPRESSION: 1. No acute cervical spine fracture. 2. Straightening of the cervical spine is likely positional or related to muscle spasm. 3. Mild degenerative disc disease of the cervical spine with minimal anterolisthesis of C4 on C5. 4. Uncovertebral and facet joint osteoarthritis contribute to neural foraminal narrowing that is most pronounced on the left at C3-4 and bilaterally at C4-5. 5. Carotid and vertebral artery atherosclerosis. CT facial bones without contrast CLINICAL: fall . TECHNIQUE: Contiguous transaxial images obtained through the facial bones without the administration of intravenous contrast. Coronal and sagittal reformations were obtained. Dose reduction: mA and/or kV are were adjusted by automated exposure control software based upon patients height and weight. FINDINGS: Comparison made to CT facial bones dated 12/01/2022. There is no focal facial soft tissue swelling. There is no acute facial bone fracture. There is minimal paranasal sinus mucosal thickening without air-fluid levels. Bilateral mastoid air cells are clear. Bilateral globes and orbits are grossly normal for age. IMPRESSION: 1. No acute facial bone fracture. Electronically authenticated by: YVETTE MARTE Date: 06/14/2024 14:29 Discharge Plan Discharge Chief Complaint: Fall Clinical Impression: CHI (closed head injury), Fall, Scalp hematoma, Cervical pain (neck), Facial contusion Patient Disposition: Home, Self-Care Time of Disposition Decision: 16:25 Condition: Fair Prescriptions / Home Meds: No Action alprazolam 0.25 mg tablet 0.25 mg PO BID PRN (Reason: anxiety) gabapentin 300 mg capsule 300 mg PO QDAY hydrocodone-acetaminophen 5-325 mg tablet 1 tab PO Q6H PRN (Reason: pain) meloxicam 15 mg tablet 15 mg PO DAILY nortriptyline 10 mg capsule 30 mg PO BEDTIME pantoprazole 40 mg tablet,delayed release (DR/EC) 40 mg PO DAILY simvastatin 10 mg tablet 10 mg PO DAILY zolpidem 10 mg tablet 10 mg PO DAILY tizanidine 4 mg tablet 4 mg PO DAILY furosemide [Lasix] 20 mg tablet 20 mg PO DAILY PRN (Reason: edema) Qty: 7 0RF metoprolol succinate 50 mg tablet extended release 24 hr 50 mg PO BID Qty: 0 0RF Print Language: Mongolian Instructions: Fall Prevention for Older Adults (ED), Head Injury (ED), Contusion in Adults (ED), Scalp Contusion in Adults (ED), Neck Pain (ED) Additional Instructions: Use ice 20 minutes on, 20 minutes off. Do not use heat Education on close head injury was done at bedside and on discharge paperwork. Use Tylenol as needed every 4 hours to help with pain if needed. The scalp hematoma will eventually reabsorb after several weeks as discussed, education was given to as well. Follow-up with PCP for any other concerns. Return back to the ER for any other acute or significant concerns or symptoms. Referrals: REJI FORRESTER [Primary Care Provider] - 1 week
[2024-06-14] MEDS: ONDANSETRON 4 MG RAPDIS TABLET SL (14:24)
[2024-06-14] MEDS: HYDROCODONE/ACET 5-325 MG TABLET 1 TAB PO (14:29)
[2024-06-14 15:04] VITALS: BP 186/104; PULSE 60; O2SAT 100
[2024-06-14] MEDS: METOPROLOL TARTRATE 50 MG TABLET PO (15:14)
--- NOTE | 2024-06-14 15:54 | PC.NURSE ---
pt clear to take c-collar of. Walked into pt room and she had already taken off collar.
[2024-06-14 16:09] VITALS: BP 146/88; PULSE 67; O2SAT 99
== END 2024-06-14 16:35 | disposition home or self-care (01) ==
PROVIDERS: Emergency Provider Emergency Medicine; PCP Internal Medicine
DX: S09.8XXA Other specified injuries of head, initial encounter (principal); S00.03XA Contusion of scalp, initial encounter; S00.83XA Contusion of other part of head, initial encounter; M54.2 Cervicalgia; M50.30 Other cervical disc degeneration, unspecified cervical region; W10.8XXA Fall (on) (from) other stairs and steps, initial encounter
CPT/HCPCS: 70450; 70486; 72125; 99284; Q0162

== ENCOUNTER 2024-07-17 13:46 | Outpatient (OUT) | payer MEDICARE, OTHER, SELFPAY ==
--- NOTE | 2024-07-17 13:48 | MM_ITS ---
Patient Name: LUMA RIBEIRO MR#: [id number] : 1945 Exam Date: 07/17/2024 Ordering Doctor: DR REJI FORRESTER M.D. RADIOLOGY REPORT PROCEDURE: MM TOMOSYNTHESIS SCREENING BI COMPARISON: [facility] SCREEN 3D RON CAD, 06/06/2022. MG [facility] RON SCRN W CAD DIG, 12/03/2012. INDICATIONS: Screening Calculator Name NCI Breast Cancer Risk Assessment Tool 5 Year Breast Cancer Risk 1.10% Lifetime Breast Cancer Risk 2.20% Personal Breast Cancer No Personal Ovarian Cancer No Treatments None Family Cancers Aunt-paternal with breast cancer at age 60. LOCATION: [facility] BREAST COMPOSITION: There are scattered areas of fibroglandular density. FINDINGS: DIAGNOSTIC CATEGORY 1--NEGATIVE. LEFT BREAST: No significant suspicious finding. RIGHT BREAST: No significant suspicious finding. RECOMMENDATIONS: ROUTINE MAMMOGRAM AND CLINICAL EVALUATION IN 12 MONTHS. PLEASE NOTE: A NORMAL MAMMOGRAM DOES NOT EXCLUDE THE POSSIBILITY OF BREAST CANCER. A CLINICALLY SUSPICIOUS PALPABLE LUMP SHOULD BE BIOPSIED. Dictated by: Jayce De La Garza DO on 07/18/2024 at 16:15 Approved by: Jayce De La Garza DO on 07/18/2024 at 16:19
--- NOTE | 2024-07-17 14:20 | US_ITS ---
The [address] [address] Patient Name: LUMA RIBEIRO MRN: [id number] date: 1945 Sex: F Assigned Patient Location: [facility]MO Current Patient Location: [facility] Accession/Order Number: [id number] Exam Date: 07/17/2024 18:35 Report Date: 07/17/2024 18:36 At the request of: REJI FORRESTER Procedure: US extremity nonvascular LT Left axillary ultrasound. Reason for exam: Palpable lump. COMPARISON: None. TECHNIQUE: Grayscale and color Doppler images of the left axilla was obtained. FINDINGS: Imaging of the left axilla demonstrates no suspicious mass, fluid collection or lymph node. US/US extremity nonvascular LT IMPRESSION: Unremarkable left axillary ultrasound. Impression dictated by: Madelyn Ibarra Jr.OKirti07/17/2024 6:36 PM Dictation Location: [place] [address] Electronically authenticated by: [id number] Y Date: 07/17/2024 18:36
== END 2024-07-17 13:47 | disposition home or self-care (01) ==
LOC: MAMMO 13:46
PROVIDERS: PCP Internal Medicine; Visit Provider Internal Medicine
DX: Z12.31 Encounter for screening mammogram for malignant neoplasm of breast (principal); R59.1 Generalized enlarged lymph nodes; M79.622 Pain in left upper arm; Z80.3 Family history of malignant neoplasm of breast
CPT/HCPCS: 76882; 77063; 77067

== ENCOUNTER 2024-09-16 13:49 | Outpatient (OUT) | payer MEDICARE, OTHER, SELFPAY ==
--- NOTE | 2024-09-16 15:32 | PM.CN ---
Consult Note: HPI Data of Consult Patient: new to practice Consult date: 09/16/24 Requesting Physician: Ml Sanchez MD Primary Care Provider: REJI FORRESTER Consult Narrative Reason for consult: low back, right hip and leg pain Narrative: 78yof who presents for evaluation. longstanding low back, right hip and leg pain. thought it was from hip, which was replaced several years ago, but xr shows hip in good alignment. has engaged in a series of provider directed home exercises >6 weeks, without lasting benefit. uses pain meds from pcp. denies adverse med side effects. cc:: CC: Ml Sanchez MD Review of Systems ROS Status of ROS 10 or more systems reviewed and unremarkable except as noted in history and below [facility] Medical History Benign essential hypertension ?I10 - Essential (primary) hypertension (ICD-10) Chronic heart failure with preserved ejection fraction (HFpEF) ?I50.32 - Chronic diastolic (congestive) heart failure (ICD-10) Generalized weakness ?R53.1 - Weakness (ICD-10) Fall ?W19.XXXA - Unspecified fall, initial encounter (ICD-10) Pulmonary edema ?J81.1 - Chronic pulmonary edema (ICD-10) Closed head injury ?S09.90XA - Unspecified injury of head, initial encounter (ICD-10) Contusion of right knee ?S80.01XA - Contusion of right knee, initial encounter (ICD-10) Abrasion of elbow, right ?S50.311A - Abrasion of right elbow, initial encounter (ICD-10) Pneumonia ?J18.9 - Pneumonia, unspecified organism (ICD-10) Acute CHF (congestive heart failure) ?I50.9 - Heart failure, unspecified (ICD-10) Acute kidney injury ?N17.9 - Acute kidney failure, unspecified (ICD-10) Community acquired pneumonia ?J18.9 - Pneumonia, unspecified organism (ICD-10) GERD without esophagitis ?K21.9 - Gastro-esophageal reflux disease without esophagitis (ICD-10) Lump of left breast ?N63.20 - Unspecified lump in the left breast, unspecified quadrant (ICD-10) High cholesterol ?E78.00 - Pure hypercholesterolemia, unspecified (ICD-10) High blood pressure ?I10 - Essential (primary) hypertension (ICD-10) Anxiety ?F41.9 - Anxiety disorder, unspecified (ICD-10) Macular degeneration ?H35.30 - Unspecified macular degeneration (ICD-10) Degenerative disc disease Fibromyalgia ?M79.7 - Fibromyalgia (ICD-10) Right shoulder pain ?M25.511 - Pain in right shoulder (ICD-10) Sleep apnea ?G47.30 - Sleep apnea, unspecified (ICD-10) Surgical History Carpal tunnel syndrome, left ?G56.02 - Carpal tunnel syndrome, left upper limb (ICD-10) History of arthroplasty of right ankle ?Z96.661 - Presence of right artificial ankle joint (ICD-10) History of bilateral knee replacement ?Z96.653 - Presence of artificial knee joint, bilateral (ICD-10) History of right hip replacement ?Z96.641 - Presence of right artificial hip joint (ICD-10) Family History Mother Family history of CHF (congestive heart failure) Sister Family history of CHF (congestive heart failure) Son Family history of cancer Family history of diabetes mellitus Family history of hypertension Social History Within the past year, how often did you have a drink containing alcohol: never Score interpretation: A score less than 3 is consistent with normal alcohol consumption. Smoking status: Never smoker Non-prescribed substance use: denies use Previous occupational history: retired Highest level of school completed/degree received: GED or equivalent Are you now , , , , never or living with a partner: In a typical week, how many times do you talk on the telephone with family, friends, or neighbors: 3 or more times per week How often do you get together with friends or relatives: 3 or more times per week How often do you attend pentecostalism or hoahaoism services: never Little interest or pleasure in doing things: not at all Feeling down, depressed, or hopeless: not at all Feel stressed/tense/nervous/anxious/difficulty sleeping: not at all Do you think of yourself as: straight/heterosexual Gender Identity: female Meds Home Medications and Allergies Home Medications ?Medication ?Instructions ?Recorded ?Confirmed ?Type alprazolam 0.25 mg tablet 0.25 mg PO BID PRN anxiety 12/01/22 06/14/24 History gabapentin 300 mg capsule 300 mg PO QDAY 12/01/22 06/14/24 History hydrocodone 5 mg-acetaminophen 325 1 tab PO Q6H PRN pain 12/01/22 06/14/24 History mg tablet meloxicam 15 mg tablet 15 mg PO DAILY 12/01/22 06/14/24 History nortriptyline 10 mg capsule 30 mg PO BEDTIME 12/01/22 06/14/24 History pantoprazole 40 mg tablet,delayed 40 mg PO DAILY 12/01/22 06/14/24 History release simvastatin 10 mg tablet 10 mg PO DAILY 12/01/22 06/14/24 History zolpidem 10 mg tablet 10 mg PO DAILY 12/01/22 06/14/24 History tizanidine 4 mg tablet 4 mg PO DAILY 05/12/24 06/14/24 History furosemide 20 mg tablet (Lasix) 20 mg PO DAILY PRN edema #7 tabs 05/14/24 06/14/24 Rx metoprolol succinate 50 mg 50 mg PO BID #0 tabs 05/14/24 06/14/24 Rx tablet,extended release 24 hr Allergies Allergy/AdvReac Type Severity Reaction Status Date / Time clarithromycin Allergy Severe Rash Verified 06/14/24 15:29 moxifloxacin (From Avelox) Allergy Severe tongue Verified 06/14/24 15:29 swelling Sulfa (Sulfonamide Allergy Unknown Unknown Verified 06/14/24 15:29 Antibiotics) ciprofloxacin (From Cipro) Allergy Rash Verified 06/14/24 15:29 Exam Narrative Exam Narrative: Psych-alert and oriented x 3. Attentive and appropriate, constitutionally normal, displays normal mood and affect per situation. There are no obvious deficits in memory, reasoning, or intellect.? Skin-no obvious rashes, bruising, erythema noted to the patient's area of pain.? Extremities- extremities are warm with minimal edema and palpable pulses. Lumbar-tenderness to palpation noted in the lumbar spine and paraspinal musculature. Pain is not elicited with flexion, extension, and lateral rotation of the lumbar spine. Range of motion is not diminished with these motions. Facet loading maneuvers are negative.? Strength-noted to be unremarkable with the exception of decreased strength rated at 4 out of 5 in right quadriceps femoris, anterior tibialis. Sensory-no notable sensory deficits in the bilateral lower extremities to touch or pinprick in all dermatomal distributions with the exception to decreased sensation to the right L3, 4, 5 dermatomal distribution Coordination remains intact.? Gait remains non-antalgic. Assessment and Plan Assessment and Plan (1) Lumbar stenosis with neurogenic claudication: Plan 78yof who presents for evaluation. failed conservative measures, as noted. imaging reviewed, as noted. given symptoms and imaging, will order lumbar mri without contrast. she is in agreement. meds reviewed, no changes. follow up after imaging.
== END 2024-09-16 13:50 | disposition home or self-care (01) ==
LOC: PM 13:51
PROVIDERS: PCP Internal Medicine; Visit Provider Anesthesiology
DX: M48.062 Spinal stenosis, lumbar region with neurogenic claudication (principal)
CPT/HCPCS: G0463

== ENCOUNTER 2024-10-01 12:33 | Outpatient (OUT) | payer MEDICARE, OTHER, SELFPAY ==
--- OUTSIDE RECORDS SUMMARY | 2024-09-18 10:15 | XMS_ITS | Encounter Summary ---
Author Organization [facility] Address [address] [place] [address] Phone Care Team Providers Care [employer] Name Role Phone Roc Steele MD Primary Care Provider [phone] Reason for Referral * Cardiac Stress Testing (Routine) - Authorized Specialty Diagnoses / Procedures Referred By Aminah beltran Referred To Contact Radiology Diagnoses Lightheadedness Chest discomfort Palpitations Mixed hyperlipidemia Procedures Nuclear Stress Test CHG MYOCARDIAL SPECT MULTIPLE STUDIES Rc Kern MD [address] [facility] [address] [place] [address] Phone: tel: fax: Referral ID Status Reason Start Date Expiration Date V isits Requested Visits Authorized [id number] Authorized 07/15/2024 07/15/2025 5 5 Reason for Visit * Cardiac Stress Testing (Routine) - Authorized Specialty Diagnoses / Procedures Referred By Aminah beltran Referred To Contact Radiology Diagnoses Lightheadedness Chest discomfort Palpitations Mixed hyperlipidemia Procedures Nuclear Stress Test CHG MYOCARDIAL SPECT MULTIPLE STUDIES Rc Kern MD [address] [address] Phone: tel: fax: Referral ID Status Reason Start Date Expiration Date V isits Requested Visits Authorized [id number] Authorized 07/15/2024 07/15/2025 5 5 Encounter Details Date Type Department Care Team (Latest Contact Info) Description 09/18/2024 10:15 AM EDT Hospital Encounter [id number] [place] [address] Lightheadedness; Chest discomfort; Palpitations; Mixed hyperlipidemia Discharge Disposition: Home Social History Tobacco Use Types Packs/Day Years Used Date Smoking Tobacco: Never Smokeless Tobacco: Never Comments Unknown Sex and Gender Information Value Date Recorded Sex Assigned at Not on file Legal Sex Female 7:23 PM EST Gender Identity Not on file Sexual Orientation Not on file COVID-19 Exposure Response Date Recorded In the last 10 days, have yo u been in contact with someone who was confirmed or suspected to have Coronavirus/COVID-19? No / Unsure 09/18/2024 10:14 AM EDT documented as of this encounter Medications at Time of Discharge ALPRAZolam (Xanax) 0.25 mg tablet Take 1 tablet (0.25 mg) by mouth as needed at bedtime for anxiety. HYDROcodone-acetamino phen ([place]a) 5-325 mg tablet Take 1 tablet by mouth every 4 hours if needed for severe pain (7 - 10). 04/03/2024 magnesium oxide (Mag-Ox) 400 mg (241.3 mg magnesium) tabletIndications:Par oxysmal supraventricular tachycardia Take 1 tablet (400 mg) by mouth once daily. 90 tablet 3 07/15/2024 meloxicam (Mobic) 15 mg tablet Take 1 tablet (15 mg) by mouth once daily. metoprolol succinate XL (Toprol-XL) 50 mg 24 hr tablet Take 1 tablet (50 mg) by mouth twice a day. 05/22/2024 nortriptyline (Pamelor) 10 mg capsule Take 3 capsules (30 mg) by mouth. 10/26/2023 pantoprazole (ProtoNix) 40 mg EC tablet Take 1 tablet (40 mg) by mouth once daily. 08/08/2023 simvastatin (Zocor) 10 mg tablet Take 1 tablet (10 mg) by mouth once daily. 09/13/2023 tiZANidine (Zanaflex) 4 mg tablet Take 1 tablet (4 mg) by mouth 3 times a day. 04/16/2024 zolpidem (Ambien) 10 mg tablet Take 1 tablet (10 mg) by mouth once daily at bedtime. 07/03/2024 documented as of this encounter Plan of Treatment Upcoming Encounters Date Type Department Care Team (Late st Contact Info) Description 2024 2:15 PM EDT Office Visit [facility] [address] [facility] [address] [place] [address] Rc Kern MD [address] [facility] [address] [place] [address] documented as of this encounter Procedures Procedure Name Priority Date/Time Associated Diagnosis Comments STRESS TEST, REGADENOSON W MYOCARDIAL PERFUSION SPECT (MULTI STUDY) Routine 09/19/2024 12:50 PM EDT Lightheadedness Chest discomfort Palpitations Mixed hyperlipidemia documented in this encounter Results * STRESS TEST, REGADENOSON W MYOCARDIAL PERFUSION SPECT (MULTI STUDY) (09/19/2024 12:50 PM EDT) Anatomical Region Laterality Modality Nuclear Medicine 09/19/2024 3:01 PM EDT 09/19/2024 3:01 PM EDT Impressions 09/19/2024 3:00 PM EDT Probably normal Lexiscan Myoview cardiac perfusion stress test. No evidence of ischemia by perfusion imaging. Distal septal attenuation artifact is suspected versus old septal myocardial infarction Normal left ventricular systolic function, ejection fraction 51%. No previous studies are available for comparison. Signed by: David Castle 09/19/2024 3:00 PM Dictation workstation: [id number] Narrative 09/19/2024 3:00 PM EDT Interpreted By: David Castle and Giannuzzi Michael STUDY: MYOCARDIAL PERFUSION STRESS TEST WITH LEXISCAN Performing facility: [facility] [place], [address], [address], [place] [address] [facility] Provider: Rc Kern MD, FACC PCP: Dr. Madelyn Setele Supervising provider: David Castle MD, FACC INDICATION: Signs/Symptoms:abn ekg, cp, dizziness, m hld. ,R42 Dizziness and giddiness,R07.89 Other chest pain,R00.2 Palpitations,E78.2 Mixed hyperlipidemia HISTORY: Gender: F; Age: 78 y/o ; Height: HT 162.6 cm cm; Weight: WT 122.018 kg kg. Abnormal EKG; High Cholesterol; HTN; Palpitations; Chest Pain; Denies smoking. COMPARISON: No comparison. ACCESSION NUMBER(S): [id number] ORDERING CLINICIAN: RC KERN TECHNIQUE: TWO DAY protocol. Stress injection: Date:09-18-24, 35.6 mCi of Myoview IV 20 seconds after rapid injection of Lexiscan. Rest injection: Date: 09-19-24, 34.1 mCi of Myoview IV at rest. The patient had a rapid injection of 0.4 mg of Lexiscan IV over 10 seconds. Imaging was performed by gated tomographic technique. Reason for Lexiscan: uses walker/cane STRESS TEST DATA: Resting heart rate was 67 BPM. Resting blood pressure was 122/78 mmHg. Peak blood pressure was 118/76 mmHg. Peak heart rate was 89 BPM. TEST TERMINATED DUE TO: Protocol completed FINDINGS: STRESS TEST RESULTS: Resting electrocardiogram revealed normal sinus rhythm with diffuse repolarization abnormalities. There were no significant ischemic ECG changes or dysrhythmias. The patient did not have chest pains/symptoms during procedure. There was a normal recovery phase. IMAGING RESULTS: Image quality was good. Rest and stress tomographic images were reviewed and revealed abnormal perfusion. There was no evidence of perfusion abnormality consistent with ischemia. There was evidence of a small fixed perfusion abnormality involving the distal septal wall consistent with infarction, attenuation artifact can not be excluded. There was no left ventricular dilatation with stress. Overall left ventricular systolic function appeared to be normal. . LVEF was 51%. TID is 0.95 and is normal. Procedure Note David Castle MD - 09/19/2024 Interpreted By: David Castle and Giannuzzi Michael STUDY: MYOCARDIAL PERFUSION STRESS TEST WITH LEXISCAN Performing facility: [facility], [address], [address], [place] [address] [facility] Provider: Rc Kern MD, [facility] PCP: Dr. Madelyn Steele Supervising provider: David Castle MD, FACC INDICATION: Signs/Symptoms:abn ekg, cp, dizziness, m hld. ,R42 Dizziness and giddiness,R07.89 Other chest pain,R00.2 Palpitations,E78.2 Mixed hyperlipidemia HISTORY: Gender: F; Age: 78 y/o ; Height: HT 162.6 cm cm; Weight: WT 122.018 kg kg. Abnormal EKG; High Cholesterol; HTN; Palpitations; Chest Pain; Denies smoking. COMPARISON: No comparison. ACCESSION NUMBER(S): [id number] ORDERING CLINICIAN: RC KERN TECHNIQUE: TWO DAY protocol. Stress injection: Date:09-18-24, 35.6 mCi of Myoview IV 20 seconds after rapid injection of Lexiscan. Rest injection: Date: 09-19-24, 34.1 mCi of Myoview IV at rest. The patient had a rapid injection of 0.4 mg of Lexiscan IV over 10 seconds. Imaging was performed by gated tomographic technique. Reason for Lexiscan: uses walker/cane STRESS TEST DATA: Resting heart rate was 67 BPM. Resting blood pressure was 122/78 mmHg. Peak blood pressure was 118/76 mmHg. Peak heart rate was 89 BPM. TEST TERMINATED DUE TO: Protocol completed FINDINGS: STRESS TEST RESULTS: Resting electrocardiogram revealed normal sinus rhythm with diffuse repolarization abnormalities. There were no significant ischemic ECG changes or dysrhythmias. The patient did not have chest pains/symptoms during procedure. There was a normal recovery phase. IMAGING RESULTS: Image quality was good. Rest and stress tomographic images were reviewed and revealed abnormal perfusion. There was no evidence of perfusion abnormality consistent with ischemia. There was evidence of a small fixed perfusion abnormality involving the distal septal wall consistent with infarction, attenuation artifact can not be excluded. There was no left ventricular dilatation with stress. Overall left ventricular systolic function appeared to be normal. . LVEF was 51%. TID is 0.95 and is normal. IMPRESSION: Probably normal Lexiscan Myoview cardiac perfusion stress test. No evidence of ischemia by perfusion imaging. Distal septal attenuation artifact is suspected versus old septal myocardial infarction Normal left ventricular systolic function, ejection fraction 51%. No previous studies are available for comparison. Signed by: David Castle 09/19/2024 3:00 PM Dictation workstation: [id number] Rc Kern MD CV STRESS PROCEDURES Final Resul t documented in this encounter Visit Diagnoses Diagnosis Lightheadedness Dizziness and giddiness Chest discomfort Other chest pain Palpitations Mixed hyperlipidemia documented in this encounter Administered Medications Inactive Administered Medications - up to 3 most recent administrations Medication Order MAR Action Action Date Dose Rate Site Tc-99m tetrofosmin (Myoview) injection 30 millicurie 30 millicurie, intravenous, Once in imaging, Starting on Mon09/18/24 at 1059, For 1 dose, Administer 45 to 90 minutes prior to imaging unless otherwise indicated. Given 09/18/2024 10:49 AM EDT 35.6 millicuries documented in this encounter Additional Health Concerns Assessment Noted Time A fall risk assessment has been complete d for the patient 07/15/2024 11:21 AM EDT documented as of this encounter Care Teams [employer] Relationship Specialty Start Date End Date Roc Steele MD [address] [facility] [address] [place] [address] PCP - General 10/04/22 documented as of this encounter
--- OUTSIDE RECORDS SUMMARY | 2024-09-18 10:16 | XMS_ITS | Encounter Summary ---
Author Organization [facility] Address [address] [place] [address] Phone Care Team Providers Care [employer] Agent Name Role Phone Roc Steele MD Primary Care Provider [phone] Reason for Visit * Cardiac Stress Testing (Routine) - Authorized Specialty Diagnoses / Procedures Referred By Aminah t Referred To Contact Radiology Diagnoses Lightheadedness Chest discomfort Palpitations Mixed hyperlipidemia Procedures Nuclear Stress Test CHG MYOCARDIAL SPECT MULTIPLE STUDIES Rc Kern MD [address] [facility] [address] [place] [address] Phone: tel: fax: Referral ID Status Reason Start Date Expiration Date V isits Requested Visits Authorized [id number] Authorized 07/15/2024 07/15/2025 5 5 Encounter Details Date Type Department Care Team (Latest Contact Info) Description 09/18/2024 10:16 AM EDT - 09/18/2024 11:59 PM EDT Hospital Encounter [place] [id number] [facility] [address] [place] [address] Discharge Disposition: Home Social History Tobacco Use [...] needed at bedtime for anxiety. HYDROcodone-acetamino phen ([place]) 5-325 mg tablet Take 1 tablet by [...] Description 2024 2:15 PM EDT Office Visit [facility] [address] [facility] [address] [place] [address] Rc Kern MD [address] [facility] [address] [place] [address] documented as of this encounter Procedures Procedure [...] David Castle 09/19/2024 3:00 PM Dictation workstation: [id number] Narrative 09/19/2024 3:00 PM EDT Interpreted By: David Castle, and Jett Inman STUDY: MYOCARDIAL PERFUSION STRESS TEST WITH LEXISCAN Performing facility: [facility], [address] [place] [address], [address], [address] Provider: Rc Kern MD, FACC PCP: Dr. Madelyn Steele Supervising provider: David Castle MD, FAC INDICATION: Signs/Symptoms:abn ekg, cp, dizziness, m hld. ,R42 Dizziness and giddiness,R07.89 Other chest pain,R00.2 Palpitations,E78.2 Mixed hyperlipidemia HISTORY: Gender: F; Age: 78 y/o ; Height: HT 162.6 cm cm; Weight: WT 122.018 kg kg. Abnormal EKG; High Cholesterol; HTN; Palpitations; Chest Pain; Denies smoking. COMPARISON: No comparison. ACCESSION NUMBER(S): [id number] ORDERING CLINICIAN: RC KERN TECHNIQUE: TWO DAY [...] PERFUSION STRESS TEST WITH LEXISCAN Performing facility: [facility], [address] [place] [address], [address], [address] Provider: Rc Kern MD, FACC PCP: Dr. Madelyn Steele Supervising provider: David Castle MD, FACC INDICATION: Signs/Symptoms:abn ekg, cp, dizziness, m hld. ,R42 Dizziness and giddiness,R07.89 Other chest pain,R00.2 Palpitations,E78.2 Mixed hyperlipidemia HISTORY: Gender: F; Age: 78 y/o ; Height: HT 162.6 cm cm; Weight: WT 122.018 kg kg. Abnormal EKG; High Cholesterol; HTN; Palpitations; Chest Pain; Denies smoking. COMPARISON: No comparison. ACCESSION NUMBER(S): [id number] ORDERING CLINICIAN: RC KERN TECHNIQUE: TWO DAY [...] David Castle 09/19/2024 3:00 PM Dictation workstation: [id number] Rc Kern MD CV STRESS PROCEDURES Final Resul t documented in this encounter Visit Diagnoses Not on filedocumented in this encounter Additional Health Concerns Assessment Noted Time A fall risk assessment has been complete d for the patient 07/15/2024 11:21 AM EDT documented as of this encounter Care Teams [employer] Agent Relationship Specialty Start Date End Date Roc Steele MD [address] [facility] [address] [place] [address] PCP - General 10/04/22 documented as of this encounter
--- OUTSIDE RECORDS SUMMARY | 2024-09-18 10:16 | XMS_ITS | Encounter Summary ---
Author Organization [facility] Address [address] [place] [address] Phone Care Team Providers Care Software Sales Representative Name Role Phone Roc Steele MD Primary Care Provider [phone] Reason for Referral * CV Imaging (Routine) - Authorized Specialty Diagnoses / Procedures Referred By Aminah beltran Referred To Contact Cardiology Diagnoses Paroxysmal supraventricular tachycardia Abnormal EKG Palpitations Procedures Transthoracic Echo Complete OK ECHO TTHRC R-T 2D W/WOM-MODE COMPL SPEC&COLR D Rc Kern MD [address] [place] [address] Phone: tel: fax: Referral ID Status Reason Start Date Expiration Date Visits Requested Visits Authorized [id number] Authorized Perform Procedure 07/15/2024 07/15/2025 1 1 Reason for Visit * CV Imaging (Routine) - Authorized Specialty Diagnoses / Procedures Referred By Aminah beltran Referred To Contact Cardiology Diagnoses Paroxysmal supraventricular tachycardia Abnormal EKG Palpitations Procedures Transthoracic Echo Complete [place] ECHO TTHRC R-T 2D W/WOM-MODE COMPL SPEC&COLR D Rc Kern MD [address] [address] Phone: tel: fax: Referral ID Status Reason Start Date Expiration Date Visits Requested Visits Authorized [id number] Authorized Perform Procedure 07/15/2024 07/15/2025 1 1 Encounter Details Date Type Department Care Team (Latest Contact Info) Description 09/18/2024 10:16 AM EDT - 09/18/2024 11:59 PM EDT Hospital Encounter [facility] [address] [address] [place] [address] Paroxysmal supraventricular tachycardia; Abnormal EKG; Palpitations Discharge Disposition: Home Social History Tobacco Use Types Packs/Day Years Used Date Smoking Tobacco: Never Smokeless Tobacco: Never Comments Unknown Sex and Gender Information Value Date Recorded Sex Assigned at Not on file Legal Sex Female 7:23 PM EST Gender Identity Not on file Sexual Orientation Not on file COVID-19 Exposure Response Date Recorded In the last 10 days, have abraham u been in contact with someone who was confirmed or suspected to have Coronavirus/COVID-19? No / Unsure 09/18/2024 10:14 AM EDT documented as of this encounter Last Filed Vital Signs Vital Sign Reading Time Taken Comments Blood Pressure 124/86 09/18/2024 11:00 AM EDT Pulse - - Temperature - - Respiratory Rate - - Oxygen Saturation - - Inhaled Oxygen Concentration - - Weight 122 kg (269 lb) 09/18/2024 11:00 AM EDT Height 162.6 cm (5' 4 ) 09/18/2024 11:00 AM EDT Body Mass Index 46.17 09/18/2024 11:00 AM EDT documented in this encounter Medications at Time of Discharge ALPRAZolam (Xanax) 0.25 mg tablet Take 1 tablet (0.25 mg) by mouth as needed at bedtime for anxiety. HYDROcodone-acetamino phen ([place]) 5-325 mg tablet Take 1 tablet by [...] Description 2024 2:15 PM EDT Office Visit [facility] 703 [facility] 250 [place] [address] Rc Kern MD 917 [facility] 130 [place], [place] [id number] documented as of this encounter Procedures Procedure Name Priority Date/Time Associated Diagnosis Comments TRANSTHORACIC ECHO (TTE) COMPLETE Routine 09/18/2024 11:39 AM EDT Paroxysmal supraventricular tachycardia Abnormal EKG Palpitations documented in this encounter Results * TRANSTHORACIC ECHO (TTE) COMPLETE (09/18/2024 11:39 AM EDT) AV mn grad 7 mmHg SYNGO AV pk twan 1.81 m/s SYNGO LV Biplane EF 36 % SYNGO LVOT diam 2.27 cm SYNGO MV E/A ratio 0.79 SYNGO MV avg E/e' ratio 26.81 SYNGO LA vol index A/L 44.1 ml/m2 SYNGO LV EF 63 % SYNGO RV free wall pk S' 15.98 cm/s SYNGO LVIDd 4.66 cm SYNGO Aortic Valve Area by Continuity of Peak Velocity 2.65 cm2 SYNGO AV pk grad 13 mmHg SYNGO Aortic Valve Area by Continuity of VTI 1.93 cm2 SYNGO LV A4C EF 42.7 SYNGO 09/18/2024 10:1 9 AM EDT Narrative SYNGO - 09/18/2024 6:10 PM EDT [address], [address], [place] [address] TRANSTHORACIC ECHOCARDIOGRAM REPORT Patient Name: USHA WALKER Toyin Physician: [id number] David Castle MD, [facility] Study Date: 09/18/2024 Ordering Provider: [id number] RC KERN MRN/PID: [id number] Fellow: Nurse: Date of /Age: 7 1945 / 78 Delivery Associate: Viry ely RDCS, RVT Gender Assigned at F Additional Staff: : Height: 162.56 cm Admit Date: Weight: 122.02 kg Admission Status: Outpatient BSA / BMI: 2.22 m2 / 46.17 Department Location: [facility] kg/m2 [place] Blood Pressure: 124 /86 mmHg Study Type: TRANSTHORACIC ECHO (TTE) COMPLETE Diagnosis/ICD: Supraventricular tachycardia-I47.1; Abnormal electrocardiogram [ECG] [EKG]-R94.31; Palpitations-R00.2 Indication: Edema, HTN, Hyperlipidemia, Carotid Stenosis, CARO, CKD-Stage III, Morbid Obesity CPT Codes: Echo Complete w Full Doppler-[id number] Study Detail: The following Echo studies were performed: 2D, M-Mode, Doppler and color flow. PHYSICIAN INTERPRETATION: Left Ventricle: Left ventricular ejection fraction is normal, by visual estimate at 60-65%. There is severe concentric left ventricular hypertrophy. There are no regional wall motion abnormalities. The left ventricular cavity size is normal. Spectral Doppler shows a Grade I (impaired relaxation pattern) of left ventricular diastolic filling with normal left atrial filling pressure. Mild to moderate concentric left ventricular hypertrophy. Left Atrium: The left atrial size is mildly dilated. Right Ventricle: The right ventricle is normal in size. There is normal right ventricular global systolic function. Right Atrium: The right atrial size is normal. Aortic Valve: The aortic valve is trileaflet. The aortic valve dimensionless index is 0.48. There is trace aortic valve regurgitation. The peak instantaneous gradient of the aortic valve is 13 mmHg. The mean gradient of the aortic valve is 7 mmHg. Mitral Valve: The mitral valve is mild to moderately thickened. There is moderate mitral annular calcification. The peak instantaneous gradient of the mitral valve is 7 mmHg. There is trace to mild mitral valve regurgitation. Tricuspid Valve: The tricuspid valve is structurally normal. There is trace tricuspid regurgitation. Pulmonic Valve: The pulmonic valve is structurally normal. There is no indication of pulmonic valve regurgitation. Pericardium: No pericardial effusion noted. Aorta: The aortic root is normal. Systemic Veins: The inferior vena cava appears normal in size. In comparison to the previous echocardiogram(s): No previous studies are available for comparison. CONCLUSIONS: 1. Left ventricular ejection fraction is normal, by visual estimate at 60-65%. 2. Spectral Doppler shows a Grade I (impaired relaxation pattern) of left ventricular diastolic filling with normal left atrial filling pressure. 3. Mild to moderate concentric left ventricular hypertrophy. 4. There is normal right ventricular global systolic function. 5. There is moderate mitral annular calcification. 6. No previous studies are available for comparison. QUANTITATIVE DATA SUMMARY: 2D MEASUREMENTS: Normal Ranges: Ao Root s: 2.40 cm LAs: 4.58 cm (2.7-4.0cm) RVIDd: 2.98 cm (0.9-3.6cm) IVSd: 1.51 cm (0.6-1.1cm) LVPWd: 1.46 cm (0.6-1.1cm) LVIDd: 4.66 cm (3.9-5.9cm) LVIDs: 3.41 cm LV Mass Index: 128.7 g/m2 LVEDV Index: 35.74 ml/m2 LV % FS 26.8 % LEFT ATRIUM: Normal Ranges: LA Vol A4C: 94.9 ml (22+/-6mL/m2) LA Vol A2C: 100.3 ml LA Vol BP: 97.8 ml LA Vol Index A4C: 42.8ml/m2 LA Vol Index A2C: 45.2 ml/m2 LA Vol Index BP: 44.1 ml/m2 LA Vol A4C: 90.1 ml LA Vol A2C: 95.3 ml LA Vol Index BSA: 41.8 ml/m2 LV SYSTOLIC FUNCTION: Normal Ranges: EF-A4C View: 43 % (>=55%) EF-A2C View: 34 % EF-Biplane: 36 % EF-Visual: 63 % LV EF Reported: 63 % LV DIASTOLIC FUNCTION: Normal Ranges: MV Peak E: 1.03 m/s (0.7-1.2 m/s) MV Peak A: 1.31 m/s (0.42-0.7 m/s) E/A Ratio: 0.79 (1.0-2.2) MV e' 0.038 m/s (>8.0) MV lateral e' 0.04 m/s MV medial e' 0.03 m/s E/e' Ratio: 26.81 (<8.0) MITRAL VALVE: Normal Ranges: MV Vmax: 1.32 m/s (<=1.3m/s) MV peak P.0 mmHg (<5mmHg) MV mean P.4 mmHg (<48mmHg) MV VTI: 34.50 cm (10-13cm) MV DT: 197 msec (150-240msec) MITRAL INSUFFICIENCY: Normal Ranges: MR Vmax: 535.23 cm/s dP/dt: 1088 mmHg/s (>1200mmHg/sec) AORTIC VALVE: Normal Ranges: AoV Vmax: 1.81 m/s (<=1.7m/s) AoV Peak P.1 mmHg (<20mmHg) AoV Mean P.6 mmHg (1.7-11.5mmHg) LVOT Max Twan: 1.19 m/s (<=1.1m/s) AoV VTI: 48.18 cm (18-25cm) LVOT VTI: 22.96 cm LVOT Diameter: 2.27 cm (1.8-2.4cm) AoV Area, VTI: 1.93 cm2 (2.5-5.5cm2) AoV Area,Vmax: 2.65 cm2 (2.5-4.5cm2) AoV Dimensionless Index: 0.48 AORTIC INSUFFICIENCY: AI Vmax: 3.51 m/s AI Half-time: 301 msec AI Decel Time: 1037 msec AI Decel Rate: 338.04 cm/s2 RIGHT VENTRICLE: RV Basal 2.74 cm RV Mid 2.20 cm RV Major 4.9 cm RV s' 0.16 m/s PULMONIC VALVE: Normal Ranges: RVOT Vmax: 0.68 m/s (0.6-0.9m/s) AORTA: Asc Ao Diam 2.66 cm [id number] David Castle MD, [facility] Electronically signed on 09/18/2024 at 6:10:05 PM Final Procedure Note David Castle MD - 09/18/2024 [facility] [address] [facility], [address], [place] [address] TRANSTHORACIC ECHOCARDIOGRAM REPORT Patient Name: USHA Mahnaz Deal Physician: [id number] Castle MD,[facility] Study Date: 09/18/2024 Ordering Provider: [id number] KERN MRN/PID: [id number] Fellow: Nurse: Date of /Age: 7 1945 Delivery Associate: David ely RDCS, RVT Gender Assigned at F Additional Staff: : Height: 162.56 cm Admit Date: Weight: 122.02 kg Admission Status: Outpatient BSA / BMI: 2.22 m2 / 46.17 [facility] [place] Blood Pressure: 124 /86 mmHg Study Type: TRANSTHORACIC ECHO (TTE) COMPLETE Diagnosis/ICD: Supraventricular tachycardia-I47.1; Abnormalelectrocardiogram [ECG] [EKG]-R94.31; Palpitations-R00.2 Indication: Edema, HTN, Hyperlipidemia, Carotid Stenosis, CARO,CKD-Stage III, Morbid Obesity CPT Codes: Echo Complete w Full Doppler-[id number] Study Detail: The following Echo studies were performed: 2D, M-Mode,Doppler and color flow. PHYSICIAN INTERPRETATION: Left Ventricle: Left ventricular ejection fraction is normal, by visualestimate at 60-65%. There is severe concentric left ventricularhypertrophy. There are no regional wall motion abnormalities. The leftventricular cavity size is normal. Spectral Doppler shows a Grade I(impaired relaxation pattern) of left ventricular diastolic filling withnormal left atrial filling pressure. Mild to moderate concentric leftventricular hypertrophy. Left Atrium: The left atrial size is mildly dilated. Right Ventricle: The right ventricle is normal in size. There is normalright ventricular global systolic function. Right Atrium: The right atrial size is normal. Aortic Valve: The aortic valve is trileaflet. The aortic valvedimensionless index is 0.48. There is trace aortic valve regurgitation.The peak instantaneous gradient of the aortic valve is 13 mmHg. The meangradient of the aortic valve is 7 mmHg. Mitral Valve: The mitral valve is mild to moderately thickened. There ismoderate mitral annular calcification. The peak instantaneous gradient ofthe mitral valve is 7 mmHg. There is trace to mild mitral valveregurgitation. Tricuspid Valve: The tricuspid valve is structurally normal. There istrace tricuspid regurgitation. Pulmonic Valve: The pulmonic valve is structurally normal. There is noindication of pulmonic valve regurgitation. Pericardium: No pericardial effusion noted. Aorta: The aortic root is normal. Systemic Veins: The inferior vena cava appears normal in size. In comparison to the previous echocardiogram(s): No previous studies areavailable for comparison. CONCLUSIONS: 1. Left ventricular ejection fraction is normal, by visual estimate at60-65%. 2. Spectral Doppler shows a Grade I (impaired relaxation pattern) of leftventricular diastolic filling with normal left atrial filling pressure. 3. Mild to moderate concentric left ventricular hypertrophy. 4. There is normal right ventricular global systolic function. 5. There is moderate mitral annular calcification. 6. No previous studies are available for comparison. QUANTITATIVE DATA SUMMARY: 2D MEASUREMENTS: Normal Ranges: Ao Root s: 2.40 cm LAs: 4.58 cm (2.7-4.0cm) RVIDd: 2.98 cm (0.9-3.6cm) IVSd: 1.51 cm (0.6-1.1cm) LVPWd: 1.46 cm (0.6-1.1cm) LVIDd: 4.66 cm (3.9-5.9cm) LVIDs: 3.41 cm LV Mass Index: 128.7 g/m2 LVEDV Index: 35.74 ml/m2 LV % FS 26.8 % LEFT ATRIUM: Normal Ranges: LA Vol A4C: 94.9 ml (22+/-6mL/m2) LA Vol A2C: 100.3 ml LA Vol BP: 97.8 ml LA Vol Index A4C: 42.8ml/m2 LA Vol Index A2C: 45.2 ml/m2 LA Vol Index BP: 44.1 ml/m2 LA Vol A4C: 90.1 ml LA Vol A2C: 95.3 ml LA Vol Index BSA: 41.8 ml/m2 LV SYSTOLIC FUNCTION: Normal Ranges: EF-A4C View: 43 % (>=55%) EF-A2C View: 34 % EF-Biplane: 36 % EF-Visual: 63 % LV EF Reported: 63 % LV DIASTOLIC FUNCTION: Normal Ranges: MV Peak E: 1.03 m/s (0.7-1.2 m/s) MV Peak A: 1.31 m/s (0.42-0.7 m/s) E/A Ratio: 0.79 (1.0-2.2) MV e' 0.038 m/s (>8.0) MV lateral e' 0.04 m/s MV medial e' 0.03 m/s E/e' Ratio: 26.81 (<8.0) MITRAL VALVE: Normal Ranges: MV Vmax: 1.32 m/s (<=1.3m/s) MV peak P.0 mmHg (<5mmHg) MV mean P.4 mmHg (<48mmHg) MV VTI: 34.50 cm (10-13cm) MV DT: 197 msec (150-240msec) MITRAL INSUFFICIENCY: Normal Ranges: MR Vmax: 535.23 cm/s dP/dt: 1088 mmHg/s (>1200mmHg/sec) AORTIC VALVE: Normal Ranges: AoV Vmax: 1.81 m/s (<=1.7m/s) AoV Peak P.1 mmHg (<20mmHg) AoV Mean P.6 mmHg (1.7-11.5mmHg) LVOT Max Twan: 1.19 m/s (<=1.1m/s) AoV VTI: 48.18 cm (18-25cm) LVOT VTI: 22.96 cm LVOT Diameter: 2.27 cm (1.8-2.4cm) AoV Area, VTI: 1.93 cm2 (2.5-5.5cm2) AoV Area,Vmax: 2.65 cm2 (2.5-4.5cm2) AoV Dimensionless Index: 0.48 AORTIC INSUFFICIENCY: AI Vmax: 3.51 m/s AI Half-time: 301 msec AI Decel Time: 1037 msec AI Decel Rate: 338.04 cm/s2 RIGHT VENTRICLE: RV Basal 2.74 cm RV Mid 2.20 cm RV Major 4.9 cm RV s' 0.16 m/s PULMONIC VALVE: Normal Ranges: RVOT Vmax: 0.68 m/s (0.6-0.9m/s) AORTA: Asc Ao Diam 2.66 cm [id number] David Castle MD, [facility] Electronically signed on 09/18/2024 at 6:10:05 PM Final Rc Kern MD CV ECHO PROCEDURES Final Result BLAKE documented in this encounter Visit Diagnoses Diagnosis Paroxysmal supraventricular tachycardia Abnormal EKG Nonspecific abnormal electrocardiogram (ECG) (EKG) Palpitations documented in this encounter Additional Health Concerns Assessment Noted Time A fall risk assessment has been complete d for the patient 07/15/2024 11:21 AM EDT documented as of this encounter Care Teams Software Sales Representative Relationship Specialty Start Date End Date Roc Steele MD 112 [facility] 110 [place] [address] PCP - General 10/04/22 documented as of this encounter
--- OUTSIDE RECORDS SUMMARY | 2024-09-18 10:16 | XMS_ITS | Encounter Summary ---
Author Organization [facility] Address [address] [place] [address] Phone Care Team Providers Care Bag Hanger Name Role Phone Roc Steele MD Primary Care Provider [phone] Reason for Visit * Cardiac Stress Testing (Routine) - Authorized Specialty Diagnoses / Procedures Referred By Aminah t Referred To Contact Radiology Diagnoses Lightheadedness Chest discomfort Palpitations Mixed hyperlipidemia Procedures Nuclear Stress Test CHG MYOCARDIAL SPECT MULTIPLE STUDIES Amber Hawley MD 917 [facility] 130 [place] [address] Phone: tel: fax: Referral ID Status Reason Start Date Expiration Date V isits Requested Visits Authorized [id number] Authorized 07/15/2024 07/15/2025 5 5 Encounter Details Date Type Department Care Team (Latest Contact Info) Description 09/18/2024 10:16 AM EDT - 09/18/2024 11:59 PM EDT Hospital Encounter [facility] [address] [facility] [address] [place] [address] Discharge Disposition: Home Social History [...] needed at bedtime for anxiety. HYDROcodone-acetamino phen ([place]) 5-325 mg tablet Take 1 tablet by [...] Description 2024 2:15 PM EDT Office Visit [facility] [address] [facility] 250 [place] [address] Amber Hawley MD 917 [facility] 130 [place], [place] [id number] documented as of this encounter Procedures Procedure [...] documented as of this encounter Care Teams Bag Hanger Relationship Specialty Start Date End Date Roc Steele MD [address] [address] PCP - General 10/04/22 documented as of this encounter
--- OUTSIDE RECORDS SUMMARY | 2024-09-19 11:24 | XMS_ITS | Encounter Summary ---
Author Organization [facility] Address [address] [place] [address] Phone Care Team Providers Care Electrician Machine Shop Name Role Phone Roc Steele MD Primary Care Provider [phone] Reason for Visit * Cardiac Stress Testing (Routine) - Authorized Specialty Diagnoses / Procedures Referred By Aminah t Referred To Contact Radiology Diagnoses Lightheadedness Chest discomfort Palpitations Mixed hyperlipidemia Procedures Nuclear Stress Test CHG MYOCARDIAL SPECT MULTIPLE STUDIES Rc Kern MD 917 [facility] 130 [place] [address] Phone: tel: fax: Referral ID Status Reason Start Date Expiration Date V isits Requested Visits Authorized [id number] Authorized 07/15/2024 07/15/2025 5 5 Encounter Details Date Type Department Care Team (Latest Contact Info) Description 09/19/2024 11:24 AM EDT - 09/19/2024 11:59 PM EDT Hospital Encounter [place] [id number] [facility] [address] [place] [address] Discharge Disposition: Home Social History [...] suspected to have Coronavirus/COVID-19? No / Unsure 09/19/2024 11:23 AM EDT documented as of this encounter Medications at Time of Discharge ALPRAZolam (Xanax) 0.25 mg tablet Take 1 tablet (0.25 mg) by mouth as needed at bedtime for anxiety. HYDROcodone-acetamino phen ([place]) 5-325 mg tablet Take 1 tablet by [...] Description 2024 2:15 PM EDT Office Visit [facility] 703 [facility] [address] [place] [address] Rc Kern MD 917 [facility] [address] [place] [address] documented as of this encounter [...] David Castle 09/19/2024 3:00 PM Dictation workstation: [id number] Narrative 09/19/2024 3:00 PM EDT Interpreted By: David Castle, and Jett Inman STUDY: MYOCARDIAL PERFUSION STRESS TEST WITH LEXISCAN Performing facility: [facility] [place], [address] [place] [address], [address], [address] Provider: Rc Kern MD, FACC PCP: [...] Denies smoking. COMPARISON: No comparison. ACCESSION NUMBER(S): [id number] ORDERING CLINICIAN: RC KERN TECHNIQUE: TWO DAY [...] PERFUSION STRESS TEST WITH LEXISCAN Performing facility: [facility] [place], [address] [place] [address], [address], [address] Provider: Rc Kern MD, FACC PCP: [...] Denies smoking. COMPARISON: No comparison. ACCESSION NUMBER(S): [id number] ORDERING CLINICIAN: RC KERN TECHNIQUE: TWO DAY [...] David Castle 09/19/2024 3:00 PM Dictation workstation: [id number] Rc Kern MD CV STRESS PROCEDURES Final Resul t documented in this encounter Visit Diagnoses Not on filedocumented in this encounter Additional Health Concerns Assessment Noted Time A fall risk assessment has been complete d for the patient 07/15/2024 11:21 AM EDT documented as of this encounter Care Teams Electrician Machine Shop Relationship Specialty Start Date End Date Roc Steele MD [address] [facility] [address] [place] [address] PCP - General 10/04/22 documented as of this encounter
--- OUTSIDE RECORDS SUMMARY | 2024-09-19 11:24 | XMS_ITS | Encounter Summary ---
Author Organization [facility] Address [address] [place] [address] Phone Care Team Providers Care Bilingual Research Interviewer Name Role Phone Roc Steele MD Primary Care Provider [phone] Reason for Visit * Cardiac Stress Testing (Routine) - Authorized Specialty Diagnoses / Procedures Referred By Aminah t Referred To Contact Radiology Diagnoses Lightheadedness Chest discomfort Palpitations Mixed hyperlipidemia Procedures Nuclear Stress Test CHG MYOCARDIAL SPECT MULTIPLE STUDIES Amber Hawley MD 917 [facility] [address] [place] [address] Phone: tel: fax: Referral ID Status Reason Start Date Expiration Date V isits Requested Visits Authorized [id number] Authorized 07/15/2024 07/15/2025 5 5 Encounter Details Date Type Department Care Team (Latest Contact Info) Description 09/19/2024 11:24 AM EDT - 09/19/2024 11:59 PM EDT Hospital Encounter [place] [id number] [facility] [address] [place] [address] Discharge Disposition: Home Social History [...] needed at bedtime for anxiety. HYDROcodone-acetamino phen ([place]) 5-325 mg tablet Take 1 tablet by [...] Description 2024 2:15 PM EDT Office Visit [facility] 703 [facility] [address] [place] [address] Amber Hawley MD 917 [facility] [address] [place] [address] documented as of this encounter [...] millicurie, intravenous, Once in imaging, Starting on Yen 09/19/24 at 1148, For 1 dose, Administer 45 to 90 minutes prior to imaging unless otherwise indicated. Given 09/19/2024 11:45 AM EDT 34.1 millicuries documented in this encounter Additional Health Concerns Assessment Noted Time A fall risk assessment has been complete d for the patient 07/15/2024 11:21 AM EDT documented as of this encounter Care Teams Bilingual Research Interviewer Relationship Specialty Start Date End Date Roc Steele MD [address] [place] [address] PCP - General 10/04/22 documented as of this encounter
--- OUTSIDE RECORDS SUMMARY | 2024-09-19 13:00 | XMS_ITS | Encounter Summary ---
Author Organization [facility] Address [address] [place] [address] Phone Care Team Providers Care Glass Tube Bender Name Role Phone Roc Steele MD Primary Care Provider [phone] Reason for Visit * Cardiovascular (Routine) - Authorized Specialty Diagnoses / Procedures Referred By Contac t Referred To Contact Cardiology Diagnoses Paroxysmal supraventricular tachycardia Abnormal EKG Lightheadedness Chest discomfort Palpitations Procedures Holter Or Event Physical Therapy Coordinator Amber Hawley MD 917 [facility] 130 [place] [address] Phone: tel: fax: Referral ID Status Reason Start Date Expiration Date V isits Requested Visits Authorized [id number] Authorized 07/15/2024 07/15/2025 1 1 Encounter Details Date Type Department Care Team (Latest Contact Info) Description 09/19/2024 1:00 PM EDT Ancillary Procedure [facility] 703 [facility] [address] [place] [address] Paroxysmal supraventricular tachycardia; Abnormal EKG; Lightheadedness; Chest [...] Description 2024 2:15 PM EDT Office Visit [facility] 703 [facility] [address] [place] [address] Amber Hawley MD 917 [facility] 130 [place] [address] Pending Results Name Type Priority Associated Diagnoses Date /Time Holter Or Event Physical Therapy Coordinator Cardiac Services Routine Paroxysmal supraventricular tachycardia Abnormal [...] documented as of this encounter Care Teams Glass Tube Bender Relationship Specialty Start Date End Date Roc Steele MD [address] [place] [address] [address] [place] [address] PCP - General 10/04/22 documented as of this encounter
--- OUTSIDE RECORDS SUMMARY | 2024-10-01 12:34 | XMS_ITS | Encounter Summary ---
Author Organization [facility] Address [address] [place] [address] Care Team Providers Care Infantry Unit Leader Name Role Phone Roc Steele MD Primary Care Provider [phone] Roc Steele MD Unavailable [phone] Luis Felipe Dugan DO Unavailable [phone] Raya Holt RN Unavailable [phone] Gldais Laird LPN Unavailable Unavailable Encounter Details Date Type Department Care Team (Late st Contact Info) Description 07/02/2024 Abstract [facility] 112 [facility] 110 [place] [address] Roc Steele MD 112 [facility] 110 [place] [address] Social History Tobacco Use Types Packs/Day Years Used Date Smoking Tobacco: Never Smokeless Tobacco: Never Alcohol Use Standard Drinks/Week Comments Never 0 (1 standard drink = 0.6 oz pur e alcohol) B1300 Health Literacy Answer Date Recor ded How often do you need to hav e someone help you when you read instructions, pamphlets, or other written material from your doctor or pharmacy? Never 02/02/2024 Humiliation, Afraid, Rape, and Kick questionnair e Answer Date Recorded Within the last year, have y ou been afraid of your partner or ex-partner? No 11/25/2022 Within the last year, have y ou been humiliated or emotionally abused in other ways by your partner or ex-partner? No Within the last year, have y ou been kicked, hit, slapped, or otherwise physically hurt by your partner or ex-partner? No 11/25/2022 Within the last year, have y ou been raped or forced to have any kind of sexual activity by your partner or ex-partner? No 11/25/2022 Social Connection and Isolat ion Panel [NHANES] Answer Date Recorded In a typical week, how many times do you talk on the phone with family, friends, or neighbors? More than three times a week 11/25/2022 How often do you get togethe r with friends or relatives? Once a week 11/25/2022 How often do you attend chur [place] or jain services? Never 11/25/2022 Do you belong to any clubs o r organizations such as zoroastrian groups, unions, fraternal or athletic groups, or school groups? No 11/25/2022 How often do you attend meet ings of the clubs or organizations you belong to? Never 11/25/2022 Are you , , di vorced, , never , or living with a partner? 11/25/2022 AUDIT-C Answer Date Recorded Q1: How often do you have a drink containing alc ohol? Monthly or less 11/25/2022 Q2: How many drinks containi ng alcohol do you have on a typical day when you are drinking? 1 or 2 11/25/2022 Q3: How often do you have si x or more drinks on one occasion? Never 11/25/2022 Overall Financial Resource Strain (CARDIA) Answe r Date Recorded How hard is it for you to pa y for the very basics like food, housing, medical care, and heating? Not hard at all 11/25/2022 PHQ-2 Answer Date Recorded Patient Health Questionnaire-2 Score 0 07/03/2024 [facility] Occupat ionde Health - Occupational Stress Questionnaire Answer Date Recorded Do you feel stress - tense, restless, nervous, or anxious, or unable to sleep at night because your mind is troubled all the time - these days? Only a little 11/25/2022 Exercise Vital Sign Answer Date Recorde d On average, how many days pe r week do you engage in moderate to strenuous exercise (like a brisk walk)? 0 days 11/25/2022 On average, how many minutes do you engage in exercise at this level? 0 min 11/25/2022 Hunger Vital Sign Answer Date Recorded Within the past 12 months, y ou worried that your food would run out before you got the money to buy more. Never true 11/26/19 23 Within the past 12 months, t he food you bought just didn't last and you didn't have money to get more. Never true 11/25/2022 PRAPARE - Transportation Answer Date Re corded In the past 12 months, has l ack of transportation kept you from medical appointments or from getting medications? No 10/30 In the past 12 months, has l ack of transportation kept you from meetings, work, or from getting things needed for daily living? No 11/25/2022 Housing Stability Vital Sign Answer Kolby e Recorded In the last 12 months, was t here a time when you were not able to pay the mortgage or rent on time? No 11/25/2022 In the last 12 months, how many places have you lived? 1 11/25/2022 In the last 12 months, was t here a time when you did not have a steady place to sleep or slept in a detention (including now)? No 11/25/2022 Comments Unknown Sex and Gender Information Value Date Recorded Sex Assigned at Not on file Legal Sex Female 7:20 PM EDT Gender Identity Not on file Sexual Orientation Not on file documented as of this encounter Functional Status * Over the past 2 weeks, how often have you been bothered by any of the following problems? Question Answer Date of Assessment Author Little interest or pleasure in doing things Not at all 07/03/2024 11:28 AM [place] Feeling down, depressed, or hopeless Not at all 08/2024 11:28 AM PAP[place] DÍAZ Patient Health Questionnaire-2 Score 0 08/2024 11:28 AM PAPO DÍAZ documented as of this encounter Plan of Treatment Upcoming Encounters Date Type Department Care Team ([facility] st Contact Info) Description 10/10/2024 3:00 PM EDT Procedure Visit [facility] 112 [facility] 120 [place] [address] Alex Tam DPM 4121 [facility] [place] 5 [place] [address] 10/30/2024 11:30 AM EDT Office Visit [facility] [address] [facility] 110 [place] [id number] Aarti Castillo, RETAIL SELLING FLOOR LEADER [address] [facility] [address] [place] [address] documented as of this encounter Visit Diagnoses Not on filedocumented in this encounter Additional Health Concerns Assessment Noted Time PHQ-9 Depression Total Score: 0 07/06/19 24 3:00 PM EST documented as of this encounter Care Teams Infantry Unit Leader Relationship Specialty Start Date End Date Roc Steele MD [address] [facility] [address] [place] [address] PCP - General Internal Medicine 09/28/22 Roc Steele MD [address] [facility] [address] [place] [address] PCP - ACO Reach 08/30/23 Luis Felipe Dugan DO [address] [facility] [address] [place] [address] Referring Physician Neurology 03/07/24 Raya Holt, RN Clinical Advocate Family Medicine 06/07/24 07/19/24 Gladis Laird LPN 07/19/24 documented as of this encounter
--- OUTSIDE RECORDS SUMMARY | 2024-10-01 12:34 | XMS_ITS | Encounter Summary ---
Author Organization [facility] Address [address] [place] [address] Care Team Providers Care Air Traffic Control Manager Name Role Phone Roc Steele MD Unavailable [phone] Roc Steele MD Primary Care Provider [phone] Roc Steele MD Unavailable [phone] Luis Felipe Dugan DO Unavailable [phone] Raya Holt RN Unavailable [phone] Gladis Laird LPN Unavailable Unavailable Encounter Details Date Type Department Care Team (Late st Contact Info) Description 03/01/2023 Abstract [facility] [address] [facility] 110 [place] [id number] Aarti Castillo, ALPINE GUIDE [address] [facility] 110 [place], [place] [id number] Social History Tobacco Use Types Packs/Day Years Used Date Smoking Tobacco: Never Smokeless Tobacco: Never Alcohol Use Standard Drinks/Week Comments Never 0 (1 standard drink = 0.6 oz pur e alcohol) Humiliation, Afraid, Rape, and Kick questionnair e [...] 11/25/2022 How often do you attend chur ch or confucianist services? Never 11/25/2022 Do you belong to any clubs o r organizations such as restoration groups, unions, fraternal or athletic groups, or [...] and heating? Not hard at all 11/25/2022 [facility] of Occupat ional Health - Occupational Stress Questionnaire Answer Date [...] place to sleep or slept in a mcfp (including now)? No 11/25/2022 Comments Unknown Sex and Gender Information Value Date Recorded Sex Assigned at Not on file Legal Sex Female 7:20 PM EDT Gender Identity Not on file Sexual Orientation Not on file documented as of this encounter Plan of Treatment Upcoming Encounters Date Type Department Care Team (Late st Contact Info) Description 10/10/2024 3:00 PM EDT Procedure Visit [facility] [address] [facility] 120 [place] [address] Alex Tam, DPM 3[address] [facility] 5 [place] [address] 10/30/2024 11:30 AM EDT Office Visit [facility] [address] [facility] [address] [place] [address] Aarti Castillo ALPINE GUIDE [address] [facility] [address] [place] [address] documented as of this encounter Visit Diagnoses Not on filedocumented in this encounter Care Teams Air Traffic Control Manager Relationship Specialty Start Date End Date Roc Steele MD [address] [facility] 110 [place] [address] PCP - ACO Reach 09/22/22 06/29/23 Roc Steele MD [address] [facility] 110 [place] [address] PCP - General Internal Medicine 09/28/22 Roc Steele MD [address] [facility] 110 [place] [address] PCP - ACO Reach 08/30/23 Luis Felipe Dugan DO [address] [facility] [address] [place] [address] Referring Physician Neurology 03/07/24 Raya Holt, RN Clinical Advocate Family Medicine 06/07/24 07/19/24 Gladis Laird LPN 07/19/24 documented as of this encounter
--- NOTE | 2024-10-01 12:35 | MR_ITS ---
The [address] [address] Patient Name: LUMA RIBEIRO MRN: [id number] date: 1945 Sex: F Assigned Patient Location: MRI Current Patient Location: MRI Accession/Order Number: [id number] Exam Date: 10/01/2024 14:28 Report Date: 10/01/2024 14:34 At the request of: DARON LOUIS MD Procedure: MR lumbar spine wo con MR lumbar spine wo con 10/01/2024 1:39 PM SIGNS AND SYMPTOMS: Acute low back pain with bilateral leg weakness PROTOCOL: Multiplanar multisequence MR images of the lumbar spine without IV contrast COMPARISON: None. FINDINGS: Bilateral L5 pars defects are suspected with grade 1 spondylolisthesis of L5 upon S1 measuring 5 mm. There is preservation of vertebral body heights. There is moderate severe disc height loss at L1-L2, L2-L3, and L3-L4. The marrow signal is within normal limits. The conus terminates at the L1-L2 intervertebral disc level. No epidural or paraspinous fluid collection is appreciated. At T12-L1: There is a normal disc, central canal, and neural foramen. At L1-L2: There is a broad-based disc bulge with facet hypertrophy. There is moderate spinal canal narrowing with mild to moderate bilateral neural foraminal narrowing. At L2-L3: There is a circumferential disc bulge with facet hypertrophy and ligamentum flavum thickening. There is moderate spinal canal stenosis with moderate bilateral neural foraminal narrowing. At L3-L4: There is a circumferential disc bulge with endplate osteophyte formation. There is facet hypertrophy with ligamentum flavum thickening. This contributes to moderate to severe left and mild right neural foraminal narrowing with moderate spinal canal stenosis. At L4-L5: There is a broad-based disc bulge with facet hypertrophy contributing to mild spinal canal stenosis and mild to moderate bilateral neural foraminal narrowing. At L5-S1: There is a right-sided external synovial cyst. There is a circumferential disc bulge with grade 1 spondylolisthesis above. There is moderate to severe bilateral neural foraminal narrowing with mass effect on the exiting L5 nerve roots. There is moderate to severe spinal canal stenosis. MR/MR lumbar spine wo con IMPRESSION: At L5-S1: There is a right-sided external synovial cyst. There is a circumferential disc bulge with grade 1 spondylolisthesis above. There is moderate to severe bilateral neural foraminal narrowing with mass effect on the exiting L5 nerve roots. There is moderate to severe spinal canal stenosis. At L3-L4: There is a circumferential disc bulge with endplate osteophyte formation. There is facet hypertrophy with ligamentum flavum thickening. This contributes to moderate to severe left and mild right neural foraminal narrowing with moderate spinal canal stenosis. Additional but lesser degrees of degenerative changes are noted as above. Impression dictated by: Sj Bach M.D. 10/01/2024 2:34 PM Dictation Location: [place] [address] Electronically authenticated by: [id number] Y Date: 10/01/2024 14:34
--- OUTSIDE RECORDS SUMMARY | 2024-10-01 12:35 | XMS_ITS | Encounter Summary ---
Author Organization [facility] Address [address] [place] [address] Care Team Providers Care Tile Picker Name Role Phone Roc Steele MD Primary Care Provider [phone] Roc Steele MD Unavailable [phone] Luis Felipe Dugan DO Unavailable [phone] Raya Holt RN Unavailable [phone] Gladis Laird LPN Unavailable Unavailable Encounter Details Date Type Department Care Team (Late st Contact Info) Description 06/10/2024 Orders Only [facility] [address] [place] [address] [place] [address] Unallocated, Noms Provider, [address] [place] [address] Social History Tobacco Use Types Packs/Day Years [...] often do you attend chur ch or restoration services? Never 11/25/2022 Do you belong to any clubs o r organizations such as uatsdin groups, unions, fraternal or athletic groups, or [...] Date Recorded Patient Health Questionnaire-2 Score 0 07/06/2023 [facility] of Occupat ional Health - Occupational Stress [...] place to sleep or slept in a assisted (including now)? No 11/25/2022 Comments Unknown Sex and Gender Information Value Date Recorded Sex Assigned at Not on file Legal Sex Female 7:20 PM EDT Gender Identity Not on file Sexual Orientation Not on file documented as of this encounter Plan of Treatment Upcoming Encounters Date Type Department Care Team ([facility] st Contact Info) Description 10/10/2024 3:00 PM EDT Procedure Visit [facility] 112 [facility] 120 [place] [address] Alex Tam DPM 3006 [facility] 5 [place] [address] 10/30/2024 11:30 AM EDT Office Visit [facility] 112 [facility] 110 [place] [address] Aarti Castillo, EMERGENCY MANAGEMENT PROGRAM SPECIALIST 112 [facility] 110 [place] [address] documented as of this encounter Procedures Procedure Name Priority Date/Time Associated Diagnosis Comments ECG 12-LEAD Routine 06/10/2024 8:09 AM EST ECG 12-LEAD Routine 06/10/2024 7:55 AM EST documented in this encounter Results * ECG 12 lead (06/10/2024 8:09 AM EST) us Noms Provider Unallocated MD ECG ORDERABLES Fin al Result * ECG 12 lead (06/10/2024 7:55 AM EST) us Noms Provider Unallocated MD ECG ORDERABLES Fin al Result documented in this encounter Visit Diagnoses Not on filedocumented in this encounter Additional Health Concerns Assessment Noted Time PHQ-9 Depression Total Score: 0 07/06/19 24 3:00 PM EST documented as of this encounter Care Teams Tile Picker Relationship Specialty Start Date End Date Roc Steele MD [address] [facility] 110 [place] [address] PCP - General Internal Medicine 09/28/22 Roc Steele MD [address] [facility] 110 [place] [address] PCP - ACO Reach 08/30/23 Luis Felipe Dugan DO [address] [facility] 110 [place] [address] Referring Physician Neurology 03/07/24 Raya Holt, RN Clinical Advocate Family Medicine 06/07/24 07/19/24 Gladis Laird LPN 07/19/24 documented as of this encounter
--- OUTSIDE RECORDS SUMMARY | 2024-10-01 12:35 | XMS_ITS | Encounter Summary ---
Author Organization [facility] Address [address] [place] [address] Care Team Providers Care Animal Rescuer Name Role Phone Roc Steele MD Primary Care Provider [phone] Roc Steele MD Unavailable [phone] Luis Felipe Dugan DO Unavailable [phone] Gladis Laird LPN Unavailable Unavailable Encounter Details Date Type Department Care Team (Late st Contact Info) Description 07/23/2024 Abstract [facility] [address] [facility] 110 [place] [address] Roc Steele MD 112 [facility] 110 [place], [place] [id number] Social History Tobacco Use Types Packs/Day Years [...] 11/25/2022 How often do you attend chur or gnosticist services? Never 11/25/2022 Do you belong to any clubs o r organizations such as mandaen groups, unions, fraternal or athletic groups, or [...] Date Recorded Patient Health Questionnaire-2 Score 0 07/11/2024 [facility] of Occupat ional Health - Occupational Stress [...] Upcoming Encounters Date Type Department Care Team ([facility] st Contact Info) Description 10/10/2024 3:00 PM EDT Procedure Visit [facility] 112 [facility] 120 [place] [address] Alex Tam DPM 3006 [facility] 5 [place] [address] 10/30/2024 11:30 AM EDT Office Visit [facility] 112 [facility] 110 [place] [phone] Aarti Castillo NP 112 [facility] 110 [place], [place] [phone] documented as of this encounter Visit Diagnoses Not on filedocumented in this encounter Additional Health Concerns Assessment Noted Time PHQ-9 Depression Total Score: 0 07/06/19 24 3:00 PM EST documented as of this encounter Care Teams Animal Rescuer Relationship Specialty Start Date End Date Roc Steele MD [address] [facility] 110 [place] [address] PCP - General Internal Medicine 09/28/22 Roc Steele MD [address] [facility] 110 [place] [address] PCP - ACO Reach 08/30/23 Luis Felipe Dugan DO [address] [facility] 110 [place] [address] Referring Physician Neurology 03/07/24 Gladis Laird LPN 07/19/24 documented as of this encounter
--- OUTSIDE RECORDS SUMMARY | 2024-10-01 12:35 | XMS_ITS ---
Author Organization [facility] Address [address] [place] [address] Care Team Providers Care Generation Engineer Name Role Phone Roc Steele MD Primary Care Provider [phone] Roc Steele MD Unavailable Luis Felipe Dugan DO Unavailable [phone] Gladis Laird LPN Unavailable Unavailable Chronic Care Management (CCM) Status:Enrolled (Active) Start date:09/15/2022 Enrollment date:09/15/2022 Overview 03/01/23, 9:16 AM - Lydia Monday, LARRY- Patient gives verbal consent to be enrolled in CCM Program and understands there could be a bill for this service. Case Team Name Relationship Phone Gladis Laird LPN(Responsible Staff) Continued Care and Services Coordination
--- OUTSIDE RECORDS SUMMARY | 2024-10-01 12:35 | XMS_ITS | Encounter Summary ---
Author Organization [facility] Address [address] [place] [address] Care Team Providers Care Operational Risk Consultant Name Role Phone Roc Steele MD Primary Care Provider [phone] Roc Steele MD Unavailable [phone] Luis Felipe Dugan DO Unavailable [phone] Raya Holt RN Unavailable [phone] Gladis Laird LPN Unavailable Unavailable Encounter Details Date Type Department Care Team (Late st Contact Info) Description 07/11/2024 Abstract [facility] 112 [facility] 110 [place] [address] Roc Steele MD 112 [facility] 110 [place] [address] Social History Tobacco Use Types [...] 11/25/2022 How often do you attend chur [employer] or moravian services? Never 11/25/2022 Do you belong to any clubs o r organizations such as confucianism groups, unions, fraternal or athletic groups, or [...] Recorded Patient Health Questionnaire-2 Score 0 07/11/2024 [facility] of Occupat iontn Health - Occupational Stress Questionnaire Answer Date [...] place to sleep or slept in a penitentiary (including now)? No 11/25/2022 Comments Unknown Sex [...] pleasure in doing things Not at all 07/11/2024 1:00 PM EDT Katie Ritter LP N Feeling down, depressed, or hopeless Not at all 07/11/2024 1:00 PM EDT Katie Ritter LP N Patient Health Questionnaire -2 Score 0 07/11/2024 1:00 PM EDT Katie Ritter LP N documented as of this encounter Plan of Treatment Upcoming Encounters Date Type Department Care Team (Late st Contact Info) Description 10/10/2024 3:00 PM EDT Procedure Visit [facility] [address] [place] [address] [place] [address] Alex Tam, DPM 8529 [facility] 5 [place] [address] 10/30/2024 11:30 AM EDT Office Visit [facility] [address] [facility] 110 [place] [address] Aarti Castillo, SALES SUPPORT ADVISOR [address] [facility] 110 [place] [address] documented as of this encounter Visit Diagnoses Not on filedocumented in this encounter Additional Health Concerns Assessment Noted Time PHQ-9 Depression Total Score: 0 07/06/19 24 3:00 PM EST documented as of this encounter Care Teams Operational Risk Consultant Relationship Specialty Start Date End Date Roc Steele MD [address] [facility] 110 [place] [address] PCP - General Internal Medicine 09/28/22 Roc Steele MD [address] [facility] 110 [place] [address] PCP - ACO Reach 08/30/23 Luis Felipe Dugan DO [address] [facility] 110 [place] [address] Referring Physician Neurology 03/07/24 Raya Holt, RN Clinical Advocate Family Medicine 06/07/24 07/19/24 Gladis Laird LPN 07/19/24 documented as of this encounter
--- OUTSIDE RECORDS SUMMARY | 2024-10-01 12:35 | XMS_ITS | Encounter Summary ---
Author Organization [facility] Address [address] [place] [address] Care Team Providers Care Outlet Manager Name Role Phone Roc Steele MD Primary Care Provider [phone] Roc Steele MD Unavailable [phone] Luis Felipe Dugan DO Unavailable [phone] Gladis Laird LPN Unavailable Unavailable Encounter Details Date Type Department Care Team (Late st Contact Info) Description 07/23/2024 Abstract [facility] [address] [facility] 110 [place] [address] Roc Steele MD 112 [facility] 110 [place], [place] [phone] Social History Tobacco Use Types Packs/Day Years [...] How often do you attend chur or methodist services? Never 11/25/2022 Do you belong to any clubs o r organizations such as yazidi groups, unions, fraternal or athletic groups, or [...] Recorded Patient Health Questionnaire-2 Score 0 07/11/2024 [facility] of Occupat ional Health - Occupational Stress [...] place to sleep or slept in a nursing home (including now)? No 11/25/2022 Comments Unknown Sex and Gender Information Value Date Recorded Sex Assigned at Not on file Legal Sex Female 7:20 PM EDT Gender Identity Not on file Sexual Orientation Not on file documented as of this encounter Plan of Treatment Upcoming Encounters Date Type Department Care Team ([facility] st Contact Info) Description 10/10/2024 3:00 PM EDT Procedure Visit [facility] 112 [facility] 120 [place] [address] Alex Tam DPM 3006 [facility] 5 [place] [address] 10/30/2024 11:30 AM EDT Office Visit [facility] 112 [facility] 110 [place] [address] Aarti Castillo NP 112 [facility] 110 [place], [place] [address] documented as of this encounter Visit Diagnoses Not on filedocumented in this encounter Additional Health Concerns Assessment Noted Time PHQ-9 Depression Total Score: 0 07/06/19 24 3:00 PM EST documented as of this encounter Care Teams Outlet Manager Relationship Specialty Start Date End Date Roc Steele MD [address] [facility] 110 [place] [address] PCP - General Internal Medicine 09/28/22 Roc Steele MD [address] [facility] 110 [place] [address] PCP - ACO Reach 08/30/23 Luis Felipe Dugan DO [address] [facility] 110 [place] [address] Referring Physician Neurology 03/07/24 Gladis Laird LPN 07/19/24 documented as of this encounter
--- OUTSIDE RECORDS SUMMARY | 2024-10-01 12:35 | XMS_ITS | Encounter Summary ---
Author Organization [facility] Address [address] [place] [address] Care Team Providers Care Electronic Parts Salesperson Name Role Phone Roc Steele MD Primary Care Provider [phone] Roc Steele MD Unavailable [phone] Luis Felipe Dugan DO Unavailable [phone] Raya Holt RN Unavailable [phone] Gladis Laird LPN Unavailable Unavailable Encounter Details Date Type Department Care Team (Late st Contact Info) Description 07/11/2024 Abstract [facility] 112 [facility] 110 [place] [address] Roc Steele MD 112 [facility] 110 [place] [address] Social History Tobacco Use Types [...] 11/25/2022 How often do you attend chur [employer] or druze services? Never 11/25/2022 Do you belong to any clubs o r organizations such as rastafari groups, unions, fraternal or athletic groups, or [...] Recorded Patient Health Questionnaire-2 Score 0 07/11/2024 [facility] of Occupat ionnm Health - Occupational Stress Questionnaire Answer Date [...] place to sleep or slept in a senior living (including now)? No 11/25/2022 Comments Unknown Sex [...] [facility] [address] [place] [address] [place] [address] Alex Tam, DPM 8555 [facility] 5 [place] [address] 10/30/2024 11:30 AM EDT Office Visit [facility] [address] [facility] 110 [place] [address] Aarti Castillo, PRECISION AIRCRAFT SYSTEMS ASSEMBLER [address] [place] [facility] 110 [place] [address] documented as of this encounter Visit Diagnoses Not on filedocumented in this encounter Additional Health Concerns Assessment Noted Time PHQ-9 Depression Total Score: 0 07/06/19 24 3:00 PM EST documented as of this encounter Care Teams Electronic Parts Salesperson Relationship Specialty Start Date End Date Roc Steele MD [address] [facility] 110 [place] [address] PCP - General Internal Medicine 09/28/22 Roc Steele MD [address] [facility] 110 [place] [address] PCP - ACO Reach 08/30/23 Luis Felipe Dugan DO [address] [facility] 110 [place] [address] Referring Physician Neurology 03/07/24 Raya Holt, RN Clinical Advocate Family Medicine 06/07/24 07/19/24 Gladis Laird LPN 07/19/24 documented as of this encounter
--- OUTSIDE RECORDS SUMMARY | 2024-10-01 12:35 | XMS_ITS | Clinical Summary ---
Author Organization [facility] Address [address] [place] [address] Care Team Providers Care Young Adult Librarian Name Role Phone Unavailable Primary Care Provider Unavailabl e Social History Tobacco Use Types Packs/Day Years Used Date Smoking Tobacco: Never Assessed Comments Unknown Sex and Gender Information Value Date Recorded Sex Assigned at Not on file Legal Sex Female 4:42 PM EST Gender Identity Not on file Sexual Orientation Not on file Plan of Treatment Not on file
--- OUTSIDE RECORDS SUMMARY | 2024-10-01 12:35 | XMS_ITS | Encounter Summary ---
Author Organization [facility] Address [address] [place] [address] Care Team Providers Care Certified Dental Assistant Name Role Phone Roc Steele MD Unavailable [phone] Roc Steele MD Primary Care Provider [phone] Roc Steele MD Unavailable [phone] Luis Felipe Dugan DO Unavailable [phone] Raya Holt RN Unavailable [phone] Gladis Laird LPN Unavailable Unavailable Encounter Details Date Type Department Care Team (Late st Contact Info) Description 06/22/2023 Clinisync Result Encounter [facility] External Department Unsolicited Provider, Generic External Data Social History Tobacco Use Types Packs/Day Years [...] often do you attend chur ch or pentecostal services? Never 11/25/2022 Do you belong to any clubs o r organizations such as yarsani groups, unions, fraternal or athletic groups, or [...] and heating? Not hard at all 11/25/2022 [facility] of Occupat ional Health - Occupational Stress [...] to sleep or slept in a senior care (including now)? No 11/25/2022 Comments Unknown Sex and Gender Information Value Date Recorded Sex Assigned at Not on file Legal Sex Female 7:20 PM EDT Gender Identity Not on file Sexual Orientation Not on file documented as of this encounter Plan of Treatment Upcoming Encounters Date Type Department Care Team ([facility] st Contact Info) Description 10/10/2024 3:00 PM EDT Procedure Visit [facility] 112 [facility] 120 [place] [address] Alex Tam DPM 3006 [facility] 5 [place] [address] 10/30/2024 11:30 AM EDT Office Visit [facility] 112 [facility] 110 [place] [address] Aarti Castillo CHAR FILTER OPERATOR 112 [facility] 110 [place] [address] documented as of this encounter Procedures Procedure Name Priority Date/Time Associated Diagnosis Comments XR CHEST 2V 06/22/2023 3:17 PM EST documented in this encounter Results * XR CHEST 2V (06/22/2023 3:17 PM EST) Anatomical Region Laterality Modality Other 06/22/2023 3:17 PM EST Narrative 06/22/2023 3:19 [place] [address] XRay Report Signed Patient: USHA WALKER MR#: [id number] : 1945 Acct:[id number] Age/Sex: 77 / F ADM Date: 06/22/23 Loc: LAB Attending Dr: ALEX TAM Ordering Physician: ALEX TAM Date of Service: 06/22/23 Procedure(s): XR chest 2V Accession Number(s): [id number] cc: ROC STEELE ; ALEX TAM [place] [address] Patient Name: USHA WALKER MRN: [id number] date: 1945 Sex: F Assigned Patient Location: LAB Current Patient Location: LAB Accession/Order Number: [id number] Exam Date: 06/22/2023 14:05 Report Date: 06/22/2023 15:17 At the request of: ALEX ATM Procedure: XR chest 2V PROCEDURE: XR chest 2V DATE: 06/22/2023 2:05 PM EST COMPARISONS: None. CLINICAL INDICATION: 77 years Female Preop Examination Z01.818 FINDINGS: Heart appears slightly prominent. The lungs are hypoaerated. There is slight diffuse increased interstitial markings throughout all lung bakre. Some of this may represent some atelectasis. Much of it probably represents a small amount of scattered chronic lung changes. There is no evidence of pleural effusion or pneumothorax. XR/XR chest 2V IMPRESSION: The lung baker show probable scattered atelectasis and chronic changes. No consolidating infiltrates to suggest pneumonia. Mild cardiomegaly. Electronically authenticated by: TOMY JOSE Date: 06/22/2023 15:17 Dictated By: Tomy Jose M.D. Signed By: 06/22/23 1519 DD/ 151 TD/TT: Nursing Aide: Procedure Note Radiology, Radiologist, - 06/22/2023 [facility] [place] [id number] XRay Report Signed Patient: USHA WALKER KMR#: [id number] : 1945cct:[id number] Age/Sex: 77 / FADM Date: 06/22/23 Loc: LAB Attending Dr: ALEX TAM Ordering Physician: ALEX TAM Date of Service: 06/22/23 Procedure(s): XR chest 2V Accession Number(s): [id number] cc: ROC STEELE ; ALEX TAM [address] [address] Patient Name: USHA WALKER MRN: [id number] date: 1945 Sex: F Assigned Patient Location: LAB Current Patient Location: LAB Accession/Order Number: [id number] Exam Date: 06/22/2023 14:05 Report Date: 06/22/2023 15:17 At the request of: ALEX TAM Procedure: XR chest 2V PROCEDURE: XR chest 2V DATE: 06/22/2023 2:05 PM EST COMPARISONS: None. CLINICAL INDICATION: 77 years Female Preop Examination Z01.818 FINDINGS: Heart appears slightly prominent. The lungs are hypoaerated. There is slight diffuse increased interstitial markings throughout all lung baker. Some of this may represent some atelectasis. Much of it probably represents a small amount of scattered chronic lung changes. There is no evidence of pleural effusion or pneumothorax. XR/XR chest 2V IMPRESSION: The lung baker show probable scattered atelectasis andchronic changes. No consolidating infiltrates to suggest pneumonia. Mild cardiomegaly. Electronically authenticated by: TOMY JOSE Date: 06/22/2023 15:17 Dictated By: Tomy Jose M.D. Signed By:06/22/23 1519 DD/ 1517 TD/TT: Nursing Aide: us Generic External Data Provider [facility] Final Result documented in this encounter Visit Diagnoses Not on filedocumented in this encounter Care Teams Certified Dental Assistant Relationship Specialty Start Date End Date Roc Steele MD [address] [place] [address] PCP - ACO Reach 09/22/22 06/29/23 Roc Steele MD [address] [facility] 110 [place] [address] PCP - General Internal Medicine 09/28/22 Roc Steele MD [address] [facility] 110 [place] [address] PCP - ACO Reach 08/30/23 Luis Felipe Dugan DO [address] [facility] 110 [place] [address] Referring Physician Neurology 03/07/24 Raya Holt, RN Clinical Advocate Family Medicine 06/07/24 07/19/24 Gladis Laird LPN 07/19/24 documented as of this encounter
--- OUTSIDE RECORDS SUMMARY | 2024-10-01 12:35 | XMS_ITS | Encounter Summary ---
Author Organization [facility] Address [address] [place] [address] Care Team Providers Care Airport Operations Manager Name Role Phone Roc Steele MD Primary Care Provider [phone] Roc Steele MD Unavailable [phone] Luis Felipe Dugan DO Unavailable [phone] Raya Holt RN Unavailable [phone] Gladis Laird LPN Unavailable Unavailable Encounter Details Date Type Department Care Team (Late st Contact Info) Description 06/25/2024 Abstract [facility] 112 [facility] 110 [place] [address] Roc Steele MD 112 [facility] 110 [place] [address] Social History Tobacco Use Types [...] 11/25/2022 How often do you attend chur Gravie or rastafarian services? Never 11/25/2022 Do you belong to any clubs o r organizations such as latter day groups, unions, fraternal or athletic groups, or [...] Recorded Patient Health Questionnaire-2 Score 0 07/06/2023 [facility] ionor Health - Occupational Stress Questionnaire Answer Date [...] place to sleep or slept in a snf (including now)? No 11/25/2022 Comments Unknown Sex and Gender Information Value Date Recorded Sex Assigned at Not on file Legal Sex Female 7:20 PM EDT Gender Identity Not on file Sexual Orientation Not on file documented as of this encounter Plan of Treatment Upcoming Encounters Date Type Department Care Team ([facility] st Contact Info) Description 10/10/2024 3:00 PM EDT Procedure Visit [facility] 112 [facility] 120 [place] [address] Alex Tam DPM 3006 [facility] 5 [place] [address] 10/30/2024 11:30 AM EDT Office Visit [facility] 112 [facility] 110 [place] [address] Aarti Castillo, FAGOTER 112 [facility] 110 [place] [address] documented as of this encounter Visit Diagnoses Not on filedocumented in this encounter Additional Health Concerns Assessment Noted Time PHQ-9 Depression Total Score: 0 07/06/19 24 3:00 PM EST documented as of this encounter Care Teams Airport Operations Manager Relationship Specialty Start Date End Date Roc Steele MD [address] [facility] 110 [place] [address] PCP - General Internal Medicine 09/28/22 Roc Steele MD [address] [facility] 110 [place] [address] PCP - ACO Reach 08/30/23 Luis Felipe Dugan DO [address] [facility] 110 [place] [address] Referring Physician Neurology 03/07/24 Raya Holt, RN Clinical Advocate Family Medicine 06/07/24 07/19/24 Gladis Laird LPN 07/19/24 documented as of this encounter
--- OUTSIDE RECORDS SUMMARY | 2024-10-01 12:35 | XMS_ITS | Encounter Summary ---
Author Organization [facility] Address [address] [place] [address] Care Team Providers Care Community Coordinator For High School Name Role Phone Roc Steele MD Unavailable [phone] Roc Steele MD Primary Care Provider [phone] Roc Steele MD Unavailable [phone] Luis Felipe Dugan DO Unavailable [phone] Raya Holt RN Unavailable [phone] Gladis Laidr LPN Unavailable Unavailable Encounter Details Date Type Department Care Team (Late st Contact Info) Description 03/02/2023 Abstract [facility] 112 [facility] 110 [place] [phone] Roc Steele MD [address] [facility] 110 [place], [place] [address] Social History Tobacco Use Types Packs/Day Years [...] How often do you attend chur or yazdanism services? Never 11/25/2022 Do you belong to any clubs o r organizations such as restorationist groups, unions, fraternal or athletic groups, or [...] and heating? Not hard at all 11/25/2022 [facility] of Occupat ional Health - [...] place to sleep or slept in a mcc (including now)? No 11/25/2022 Comments Unknown Sex [...] Procedure Visit [facility] 112 [facility] 120 [place] [address] Alex Tam, DPM 3006 [facility] 5 [place] [address] 10/30/2024 11:30 AM EDT Office Visit [facility] 112 [facility] 110 [place] [address] Aarti Castillo PRODUCER [address] [facility] 110 [place] [address] documented as of this encounter Visit Diagnoses Not on filedocumented in this encounter Care Teams Community Coordinator For [employer] Relationship Specialty Start Date End Date Roc Steele MD [address] [facility] 110 [place] [address] PCP - ACO Reach 09/22/22 06/29/23 Roc Steele MD [address] [facility] [address] [place] [address] PCP - General Internal Medicine 09/28/22 Roc Steele MD [address] [facility] [address] [place] [address] PCP - ACO Reach 08/30/23 Luis Felipe Dugan DO [address] [facility] [address] [place] [address] Referring Physician Neurology 03/07/24 Raya Holt, RN Clinical Advocate Family Medicine 06/07/24 07/19/24 Gladis Laird LPN 07/19/24 documented as of this encounter
--- OUTSIDE RECORDS SUMMARY | 2024-10-01 12:35 | XMS_ITS | Encounter Summary ---
Author Organization [facility] Address [address] [place] [address] Care Team Providers Care Electron Beam Welder Name Role Phone Roc Steele MD Unavailable [phone] Roc Steele MD Primary Care Provider [phone] Roc Steele MD Unavailable [phone] Luis Felipe Dugan DO Unavailable [phone] Raya Holt RN Unavailable [phone] Gladis Laird LPN Unavailable Unavailable Encounter [...] often do you attend chur ch or sikhism services? Never 11/25/2022 Do you belong to any clubs o r organizations such as spiritism groups, unions, fraternal or athletic groups, or [...] and heating? Not hard at all 11/25/2022 [facility] of Occupat ional Health - [...] place to sleep or slept in a long-term (including now)? No 11/25/2022 Comments Unknown Sex [...] CI PODIATRY 112 [facility] 120 [place] [address] Alex Tam DPM 3006 [facility] 5 [place] [address] 10/30/2024 11:30 AM EDT Office Visit [facility] 112 [facility] 110 [place] [address] Aarti Castillo FILLING HAULER WEAVING [address] [facility] 110 [place] [address] documented as of this encounter Procedures Procedure Name Priority Date/Time Associated Diagnosis Comments ECG 12-LEAD 06/22/2023 2:24 PM EST documented in this encounter Results * ECG 12-LEAD (06/22/2023 2:24 PM EST) Anatomical Region Laterality Modality Other 06/22/2023 2:24 PM EST Narrative 06/22/2023 10:19 [place] [address] Electrocardiograph Report Signed Patient: USHA WALKER MR#: [id number] : 1945 Acct:[id number] Age/Sex: 77 / F ADM Date: 06/22/23 Loc: LAB Attending Dr: ALEX TAM Ordering Physician: ALEX TAM Date of Service: 06/22/23 Procedure(s): ECG 12 lead Accession Number(s): [id number] cc: [facility] Test Date: 2023-06-22 Pat Name: USHA WALKER Department: Room: - Gender: Female Cellophane Bag Machine Operator: : 1945 Requested By: ALEX TAM Order Number: [id number] [place] MD: ELLIS DANIELSON Measurements Intervals [place] Rate: 84 P: 56 PA: 169 QRS: -28 QRSD: 118 T: 18 QT: 381 QTc: 452 Interpretive Statements SINUS RHYTHM BORDERLINE LEFT AXIS DEVIATION [QRS AXIS < -20] MODERATE INTRAVENTRICULAR CONDUCTION DELAY [110+ ms QRS DURATION] MODERATE VOLTAGE CRITERIA FOR LVH, CONSIDER NORMAL VARIANT [MEETS CRITERIA IN ONE OF: R(aVL), S(V1), R(V5), R(V5/V6)+S(V1)] Electronically Signed On 06-22-2023 22:18:51 EST by ELLIS DANIELSON Dictated By: Ellis Danielson D.O. Signed By: 06/22/23221806/22/232218 DD/ 1424 TD/TT: Aircraft Systems Technician: Procedure Note Radiology, Radiologist, MD - 06/22/2023 [place] [id number] Electrocardiograph Report Signed Patient: USHA WALKER KMR#: [id number] : 7Acct:[id number] Age/Sex: 77 / FADM Date: 06/22/23 Loc: LAB Attending Dr: ALEX TAM Ordering Physician: ALEX TAM Date of Service: 06/22/23 Procedure(s): ECG 12 lead Accession Number(s): [id number] cc: [facility] Test Date: 2023-06-22 Pat Name: USHA WALKER Department: Room: - Gender: Female Cellophane Bag Machine Operator: : 1945 Requested By: ALEX TAM Order Number: [id number] [place] MD: ELLIS DANIELSON Measurements Intervals [place] Rate: 84 P: 56 PA: 169 QRS: -28 QRSD: 118 T: 18 QT: 381 QTc: 452 Interpretive Statements SINUS RHYTHM BORDERLINE LEFT AXIS DEVIATION [QRS AXIS < -20] MODERATE INTRAVENTRICULAR CONDUCTION DELAY [110+ ms QRS DURATION] MODERATE VOLTAGE CRITERIA FOR LVH, CONSIDER NORMAL VARIANT [MEETS CRITERIAIN ONE OF: R(aVL), S(V1), R(V5), R(V5/V6)+S(V1)] Electronically Signed On 06-22-2023 22:18:51 EST by ELLIS DANIELSON Dictated By: Ellis Danielson D.O. Signed By:06/22/23221806/22/232218 DD/ 142 TD/TT: Aircraft Systems Technician: us Generic External Data Provider [facility] Final Result documented in this encounter Visit Diagnoses Not on filedocumented in this encounter Care Teams Electron Beam Welder Relationship Specialty Start Date End Date Roc Steele MD [address] [facility] 110 [place] [address] PCP - ACO Reach 09/22/22 06/29/23 Roc Steele MD [address] [facility] 110 [place] [address] PCP - General Internal Medicine 09/28/22 Roc Steele MD [address] [facility] [address] [place] [address] PCP - ACO Reach 08/30/23 Luis Felipe Dugan DO [address] [facility] [address] [place] [address] Referring Physician Neurology 03/07/24 Raya Holt, RN Clinical Advocate Family Medicine 06/07/24 07/19/24 Gladis Laird LPN 07/19/24 documented as of this encounter
--- OUTSIDE RECORDS SUMMARY | 2024-10-01 12:36 | XMS_ITS | Encounter Summary ---
Author Organization [facility] Address [address] [place] [address] Care Team Providers Care Security Officer Supervisor Name Role Phone Roc Steele MD Primary Care Provider [phone] Roc Steele MD Unavailable [phone] Luis Felipe Dugan DO Unavailable [phone] Gladis Laird LPN Unavailable Unavailable Encounter Details Date Type Department Care Team (Late st Contact Info) Description 07/24/2024 Abstract [facility] 112 [facility] 110 [place] [address] Roc Steele MD 112 [facility] 110 [place], [place] [address] Social History Tobacco Use Types Packs/Day Years [...] How often do you attend chur or jewish services? Never 11/25/2022 Do you belong to any clubs o r organizations such as baptism groups, unions, fraternal or athletic groups, or [...] Recorded Patient Health Questionnaire-2 Score 0 07/11/2024 [facility] of Occupat ional Health - Occupational [...] place to sleep or slept in a fdc (including now)? No 11/25/2022 Comments Unknown Sex and Gender Information Value Date Recorded Sex Assigned at Not on file Legal Sex Female 7:20 PM EDT Gender Identity Not on file Sexual Orientation Not on file documented as of this encounter Plan of Treatment Upcoming Encounters Date Type Department Care Team ([facility] st Contact Info) Description 10/10/2024 3:00 PM EDT Procedure Visit [facility] 112 [facility] 120 [place] [address] Alex Tam DPM 3006 [facility] 5 [place] [address] 10/30/2024 11:30 AM EDT Office Visit [facility] 112 [facility] 110 [place] [address] Aarti Castillo NP 112 [facility] 110 [place], [place] [address] documented as of this encounter Visit Diagnoses Not on filedocumented in this encounter Additional Health Concerns Assessment Noted Time PHQ-9 Depression Total Score: 0 07/06/19 24 3:00 PM EST documented as of this encounter Care Teams Security Officer Supervisor Relationship Specialty Start Date End Date Roc Steele MD [address] [facility] 110 [place] [address] PCP - General Internal Medicine 09/28/22 Roc Steele MD [address] [facility] 110 [place] [address] PCP - ACO Reach 08/30/23 Luis Felipe Dugan DO [address] [facility] 110 [place] [address] Referring Physician Neurology 03/07/24 Gladis Laird LPN 07/19/24 documented as of this encounter
--- OUTSIDE RECORDS SUMMARY | 2024-10-01 12:36 | XMS_ITS | Encounter Summary ---
Author Organization [facility] Address [address] [place] [address] Care Team Providers Care Sweater Operator Name Role Phone Roc Steele MD Unavailable [phone] Roc Steele MD Primary Care Provider [phone] Roc Steele MD Unavailable [phone] Luis Felipe Dugan DO Unavailable [phone] Raya Holt RN Unavailable [phone] Gladis Laird LPN Unavailable Unavailable Encounter Details Date Type Department Care Team (Late st Contact Info) Description 12/25/2022 Abstract [facility] [address] [facility] [address] [place] [address] Josue Mayer, PT [address] [facility] [address] [place] [address] Social History Tobacco Use Types Packs/Day Years [...] often do you attend chur ch or moravian services? Never 11/25/2022 Do you belong to any clubs o r organizations such as mandaeism groups, unions, fraternal or athletic groups, or [...] and heating? Not hard at all 11/25/2022 [facility] of Occupat ional Health - Occupational [...] place to sleep or slept in a longterm (including now)? No 11/25/2022 Comments Unknown Sex [...] Visit [facility] [address] [facility] 120 [place] [address] Alex Tam DPM 3006 [facility] 5 [place] [address] 10/30/2024 11:30 AM EDT Office Visit [facility] [address] [facility] 110 [place] [address] Aarti Castillo ENVELOPE CUTTER [address] [facility] [address] [place] [address] documented as of this encounter Visit Diagnoses Not on filedocumented in this encounter Care Teams Sweater Operator Relationship Specialty Start Date End Date Roc Steele MD [address] [facility] [address] [place] [address] PCP - ACO Reach 09/22/22 06/29/23 Roc Steele MD [address] [facility] [address] [place] [address] PCP - General Internal Medicine 09/28/22 Roc Steele MD [address] [facility] [address] [place] [address] PCP - ACO Reach 08/30/23 Luis Felipe Dugan DO [address] [facility] [address] [place] [address] Referring Physician Neurology 03/07/24 Raya Holt, RN Clinical Advocate Family Medicine 06/07/24 07/19/24 Gladis Laird LPN 07/19/24 documented as of this encounter
--- OUTSIDE RECORDS SUMMARY | 2024-10-01 12:36 | XMS_ITS | Encounter Summary ---
Author Organization [facility] Address [address] [place] [address] Care Team Providers Care Switch Cleaner Name Role Phone Roc Steele MD Primary Care Provider [phone] Roc Steele MD Unavailable [phone] Luis Felipe Dugan DO Unavailable [phone] Gladis Laird LPN Unavailable Unavailable Encounter Details Date Type Department Care Team (Late st Contact Info) Description 08/20/2024 Abstract [facility] 112 [facility] 110 [place] [address] Roc Steele MD 112 [facility] 110 [place], [place] [address] Social History Tobacco Use Types Packs/Day Years [...] How often do you attend chur or mosque services? Never 11/25/2022 Do you belong to any clubs o r organizations such as confucianist groups, unions, fraternal or athletic groups, or [...] Date Recorded Patient Health Questionnaire-2 Score 0 08/19/2024 [facility] of Occupat ional Health - Occupational [...] No 11/25/2022 Housing Stability Vital Sign Answer Kobly e Recorded In the last 12 months, [...] place to sleep or slept in a correction (including now)? No 11/25/2022 Comments Unknown Sex and Gender Information Value Date Recorded Sex Assigned at Not on file Legal Sex Female 7:20 PM EDT Gender Identity Not on file Sexual Orientation Not on file documented as of this encounter Plan of Treatment Upcoming Encounters Date Type Department Care Team ([facility] st Contact Info) Description 10/10/2024 3:00 PM EDT Procedure Visit [facility] 112 [facility] 120 [place] [address] Alex Tam DPM 3006 [facility] 5 [place] [address] 10/30/2024 11:30 AM EDT Office Visit [facility] 112 [facility] 110 [place] [address] Aarti Castillo NP 112 [facility] 110 [place], [place] [address] documented as of this encounter Visit Diagnoses Not on filedocumented in this encounter Additional Health Concerns Assessment Noted Time PHQ-9 Depression Total Score: 0 07/06/19 24 3:00 PM EST documented as of this encounter Care Teams Switch Cleaner Relationship Specialty Start Date End Date Roc Steele MD [address] [facility] 110 [place] [address] PCP - General Internal Medicine 09/28/22 Roc Steele MD [address] [facility] 110 [place] [address] PCP - ACO Reach 08/30/23 Luis Felipe Dugan DO [address] [facility] 110 [place] [address] Referring Physician Neurology 03/07/24 Gladis Laird LPN 07/19/24 documented as of this encounter
--- OUTSIDE RECORDS SUMMARY | 2024-10-01 12:36 | XMS_ITS | Encounter Summary ---
Author Organization [facility] Address [address] [place] [address] Care Team Providers Care Second Worker Name Role Phone Roc Steele MD Unavailable [phone] Roc Steele MD Primary Care Provider [phone] Roc Steele MD Unavailable [phone] Luis Felipe Dugan DO Unavailable [phone] Raya Holt RN Unavailable [phone] Gladis Laird LPN Unavailable Unavailable Encounter Details Date Type Department Care Team (Late st Contact Info) Description 12/02/2022 Orders Only [facility] [address] [facility] [address] [place] [address] A, Unknown Practice [address] [place] [phone] Social History Tobacco Use Types Packs/Day Years Used Date Smoking Tobacco: Never Smokeless Tobacco: Never Humiliation, Afraid, Rape, and Kick questionnair e [...] often do you attend chur ch or muslim services? Never 11/25/2022 Do you belong to any clubs o r organizations such as jehovah's witness groups, unions, fraternal or athletic groups, or [...] and heating? Not hard at all 11/25/2022 [facility] of Occupat ional Health - [...] EDT Procedure Visit [facility] 112 [facility] 120 [place] [address] Alex Tam DPM 3006 [facility] 5 [place] [address] 10/30/2024 11:30 AM EDT Office Visit [facility] 112 [facility] 110 [place] [address] Aarti Castillo NP 112 [facility] 110 [place] [address] documented as of this encounter Procedures Procedure Name Priority Date/Time Associated Diagnosis Comments XR ELBOW 1-2 VIEWS RIGHT Routine 12/01/2022 8:08 AM EDT XR KNEE 3 VIEWS RIGHT Routine 12/01/2022 8:07 AM EDT XR ELBOW 3+ VIEWS RIGHT Routine 12/01/2022 7:[address] FACIAL BONES WOUT CONTRAST Routine 12/01/2022 7:55 AM EDT documented in this encounter Results * XR elbow 1 or 2 views right (12/01/2022 8:08 AM EDT) Anatomical Region Laterality Modality Upper Extremities, Elbow Right Radiogr aphic Imaging us Unknown Practice A IMG XR PROCEDURES Final Resul t * XR knee 3 views right (12/01/2022 8:07 AM EDT) Anatomical Region Laterality Modality Lower Extremities, Knee Right Radiogra phic Imaging us Unknown Practice A IMG XR PROCEDURES Final Resul t * XR elbow 3+ views right (12/01/2022 7:57 AM EDT) Anatomical Region Laterality Modality Upper Extremities, Elbow Right Radiogr aphic Imaging Unknown Practice A IMG XR PROCEDURES Final Resul t * CT FACIAL BONES WOUT CONTRAST (12/01/2022 7:55 AM EDT) Anatomical Region Laterality Modality Radiographic Gillian ging Unknown Practice A IMG XR PROCEDURES Final Resul t documented in this encounter Visit Diagnoses Not on filedocumented in this encounter Care Teams Second Worker Relationship Specialty Start Date End Date Roc Steele MD [address] [facility] [address] [place] [address] PCP - ACO Reach 09/22/22 06/29/23 Roc Steele MD [address] [facility] 110 [place] [address] PCP - General Internal Medicine 09/28/22 Roc Steele MD [address] [facility] 110 [place] [address] PCP - ACO Reach 08/30/23 Luis Felipe Dugan DO [address] [facility] 110 [place] [address] Referring Physician Neurology 03/07/24 Raya Holt, RN Clinical Advocate Family Medicine 06/07/24 07/19/24 Gladis Laird LPN 07/19/24 documented as of this encounter
--- OUTSIDE RECORDS SUMMARY | 2024-10-01 12:36 | XMS_ITS | Encounter Summary ---
Author Organization [facility] Address [address] [place] [address] Care Team Providers Care Mechanical Manufacturing Engineer Name Role Phone Roc Steele MD Primary Care Provider [phone] Roc Steele MD Unavailable [phone] Luis Felipe Dugan DO Unavailable [phone] Raya Holt RN Unavailable [phone] Gladis Laird LPN Unavailable Unavailable Encounter Details Date Type Department Care Team (Late st Contact Info) Description 05/17/2024 Orders Only [facility] [address] [place] [address] [place] [address] Unallocated, Noms Provider, [address] [place] [address] Social History Tobacco Use Types [...] often do you attend chur ch or mormonism services? Never 11/25/2022 Do you belong to any clubs o r organizations such as pentecostal groups, unions, fraternal or athletic groups, or [...] Recorded Patient Health Questionnaire-2 Score 0 07/06/2023 [facility] of Occupat ional Health [...] Upcoming Encounters Date Type Department Care Team ([facility] st Contact Info) Description 10/10/2024 3:00 PM EDT Procedure Visit [facility] 112 [facility] 120 [place] [address] Alex Tam DPM 3006 [facility] 5 [place] [address] 10/30/2024 11:30 AM EDT Office Visit [facility] 112 [facility] 110 [place] [address] Aarti Castillo, HOME CARE PROVIDER 112 [facility] 110 [place] [address] documented as of this encounter Procedures Procedure Name Priority Date/Time Associated Diagnosis Comments ECG 12-LEAD Routine 05/17/2024 8:06 AM EST documented in this encounter Results * ECG 12 lead (05/17/2024 8:06 AM EST) us Noms Provider Unallocated MD ECG ORDERABLES Fin al Result documented in this encounter Visit Diagnoses Not on filedocumented in this encounter Additional Health Concerns Assessment Noted Time PHQ-9 Depression Total Score: 0 07/06/19 24 3:00 PM EST documented as of this encounter Care Teams Mechanical Manufacturing Engineer Relationship Specialty Start Date End Date Roc Steele MD [address] [facility] [address] [place] [address] PCP - General Internal Medicine 09/28/22 Roc Steele MD [address] [facility] [address] [place] [address] PCP - ACO Reach 08/30/23 Luis Felipe Dugan DO [address] [facility] [address] [place] [address] Referring Physician Neurology 03/07/24 Raya Holt, RN Clinical Advocate Family Medicine 06/07/24 07/19/24 Gladis Laird LPN 07/19/24 documented as of this encounter
--- OUTSIDE RECORDS SUMMARY | 2024-10-01 12:36 | XMS_ITS | Encounter Summary ---
Author Organization [facility] Address [address] [place] [address] Care Team Providers Care Theology Professor Name Role Phone Roc Steele MD Unavailable [phone] Roc Steele MD Primary Care Provider [phone] Roc Steele MD Unavailable [phone] Luis Felipe Dugan DO Unavailable [phone] Raya Holt RN Unavailable [phone] Gladis Laird LPN Unavailable Unavailable Encounter Details Date Type Department Care Team (Late st Contact Info) Description 11/23/2022 Orders Only [facility] [address] [place] [address] [place] [address] A, Unknown Practice [address] [id number] Social History Tobacco Use Types Packs/Day Years [...] often do you attend chur ch or mormon services? Never 11/25/2022 Do you belong to any clubs o r organizations such as sabianist groups, unions, fraternal or athletic groups, or [...] and heating? Not hard at all 11/25/2022 [facility] - Occupational Stress [...] place to sleep or slept in a half-way (including now)? No 11/25/2022 Comments Unknown Sex and Gender Information Value Date Recorded Sex Assigned at Not on file Legal Sex Female 7:20 PM EDT Gender Identity Not on file Sexual Orientation Not on file documented as of this encounter Functional Status * Audit-C Score Answer Date of Assessment Author 1 11/25/2022 10:39 AM EDT Lydia Anderson LPN * Question Answer Date of Assessment Author Q1: How often do you have a drink containing alcohol? Monthly or less 11/25/2022 10:39 AM EDT JustinLydia harmon L PN Q2: How many drinks containing alcohol do you have on a typical day when you are drinking? 1 or 2 11/25/2022 10:39 AM EDT Lydia Anderson L PN Q3: How often do you have six or more drinks on one occasion? Never 11/25/2022 10:39 AM EDT Lydia Anderson L PN documented as of this encounter Plan of Treatment Upcoming Encounters Date Type Department Care Team (Late st Contact Info) Description 10/10/2024 3:00 PM EDT Procedure Visit [facility] 112 [facility] 120 [place] [address] Alex Tam DPM 9625 [facility] 5 [place] [address] 10/30/2024 11:30 AM EDT Office Visit [facility] [address] [place] [address] [place] [address] Aarti Castillo, HEEL SCOURER [address] [place] [address] [place] [address] documented as of this encounter Procedures Procedure Name Priority Date/Time Associated Diagnosis Comments HOME SLEEP TEST Routine 11/14/2022 9:54 AM EDT POLYSOMNOGRAPHY Routine 11/14/2022 9:54 AM EDT documented in this encounter Results * Home sleep test (11/14/2022 9:54 AM EDT) us Unknown Practice [facility] ORDER[facility]LES Final Result * Polysomnography (11/14/2022 9:54 AM EDT) us Unknown Practice [facility] ORDER[facility]LES Final Result documented in this encounter Visit Diagnoses Not on filedocumented in this encounter Care Teams Theology Professor Relationship Specialty Start Date End Date Roc Steele MD [address] [facility] 110 [place] [address] PCP - ACO Reach 09/22/22 06/29/23 Roc Steele MD [address] [facility] 110 [place] [address] PCP - General Internal Medicine 09/28/22 Roc Steele MD [address] [place] [address] [place] [address] PCP - ACO Reach 08/30/23 Luis Felipe Dugan DO [address] [place] [address] [place] [address] Referring Physician Neurology 03/07/24 Raya Holt, RN Clinical Advocate Family Medicine 06/07/24 07/19/24 Gladis Laird LPN 07/19/24 documented as of this encounter
--- OUTSIDE RECORDS SUMMARY | 2024-10-01 12:36 | XMS_ITS | Encounter Summary ---
Author Organization [facility] Address [address] [place] [address] Care Team Providers Care Backup Engineer Name Role Phone Roc Steele MD Primary Care Provider [phone] Roc Steele MD Unavailable [phone] Luis Felipe Dugan DO Unavailable [phone] Gladis Laird LPN Unavailable Unavailable Encounter Details Date Type Department Care Team (Late st Contact Info) Description 08/19/2024 Abstract [facility] [address] [facility] 110 [place] [address] Roc Steele MD 112 [facility] 110 [place], [place] [id number] Social History Tobacco Use Types Packs/Day Years [...] How often do you attend chur or adventism services? Never 11/25/2022 Do you belong to any clubs o r organizations such as adventist groups, unions, fraternal or athletic groups, or [...] Recorded Patient Health Questionnaire-2 Score 0 08/19/2024 [facility] Occup[facility] ional [facility] - [...] place to sleep or slept in a group home (including now)? No 11/25/2022 Comments Unknown [...] pleasure in doing things Not at all 08/19/2024 11:25 AM EDT Katie Ritter L PN Feeling down, depressed, or hopeless Not at all 08/19/2024 11:25 AM EDT Katie Ritter L PN Patient Health Questionnaire -2 Score 0 08/19/2024 11:25 AM EDT Katie Ritter L PN documented as of this encounter Plan of Treatment Upcoming Encounters Date Type Department Care Team ([facility] st Contact Info) Description 10/10/2024 3:00 PM EDT Procedure Visit [facility] 112 [facility] 120 [place] [address] Alex Tam DPM 1209 [facility] 5 [place] [address] 10/30/2024 11:30 AM EDT Office Visit [facility] [address] [facility] 110 [place] [phone] Aarti Castillo, TRAVEL SERVICE CONSULTANT [address] [facility] [address] [place] [address] documented as of this encounter Visit Diagnoses Not on filedocumented in this encounter Additional Health Concerns Assessment Noted Time PHQ-9 Depression Total Score: 0 07/06/19 24 3:00 PM EST documented as of this encounter Care Teams Backup Engineer Relationship Specialty Start Date End Date Roc Steele MD [address] [facility] [address] [place] [address] PCP - General Internal Medicine 09/28/22 Roc Steele MD [address] [facility] [address] [place] [address] PCP - ACO Reach 08/30/23 Luis Felipe Dugan DO [address] [facility] 110 [place] [address] Referring Physician Neurology 03/07/24 Gladis Laird LPN 07/19/24 documented as of this encounter
--- OUTSIDE RECORDS SUMMARY | 2024-10-01 12:36 | XMS_ITS | Encounter Summary ---
Author Organization [facility] Address [address] [place] [address] Care Team Providers Care Ground Operations Superintendent Name Role Phone Roc Steele MD Unavailable [phone] Roc Steele MD Primary Care Provider [phone] Roc Steele MD Unavailable [phone] Luis Felipe Dugan DO Unavailable [phone] Raya Holt RN Unavailable [phone] Gladis Laird LPN Unavailable Unavailable Encounter Details Date Type Department Care Team (Late st Contact Info) Description 12/07/2022 Abstract [facility] [address] [facility] 110 [place] [phone] Roc Steele MD 112 [facility] 110 [place], [place] [address] Social History Tobacco Use Types Packs/Day Years [...] How often do you attend chur or mormonism services? Never 11/25/2022 Do you belong to any clubs o r organizations such as evangelical groups, unions, fraternal or athletic groups, or [...] heating? Not hard at all 11/25/2022 [facility] Occupat ional Health - Occupational [...] Procedure Visit [facility] [address] [facility] 120 [place] [address] Alex Tam, DPM 3006 [facility] 5 [place] [address] 10/30/2024 11:30 AM EDT Office Visit [facility] [address] [facility] 110 [place] [address] Aarti Castillo PUTTY AND CAULKING SUPERVISOR 112 [facility] 110 [place] [address] documented as of this encounter Visit Diagnoses Not on filedocumented in this encounter Care Teams Ground Operations Superintendent Relationship Specialty Start Date End Date Roc Steele MD [address] [facility] 110 [place] [address] PCP - ACO Reach 09/22/22 06/29/23 Roc Steele MD [address] [facility] [address] [place] [address] PCP - General Internal Medicine 09/28/22 Roc Steele MD [address] [facility] [address] [place] [address] PCP - ACO Reach 08/30/23 Luis Felipe Dugan DO [address] [facility] [address] [place] [address] Referring Physician Neurology 03/07/24 Raya Holt, RN Clinical Advocate Family Medicine 06/07/24 07/19/24 Gladis Laird LPN 07/19/24 documented as of this encounter
--- OUTSIDE RECORDS SUMMARY | 2024-10-01 12:36 | XMS_ITS | Encounter Summary ---
Author Organization [facility] Address [address] [place] [address] Care Team Providers Care Certified Solid Waste Facility Operator Name Role Phone Roc Steele MD Unavailable [phone] Roc Steele MD Primary Care Provider [phone] Roc Steele MD Unavailable [phone] Luis Felipe Dugan DO Unavailable [phone] Raya Holt RN Unavailable [phone] Gladis Laird LPN Unavailable Unavailable Encounter Details Date Type Department Care Team (Late st Contact Info) Description 12/07/2022 Orders Only [facility] [address] [place] [address] [place] [address] A, Unknown Practice [address] [id number] Social History Tobacco Use Types Packs/Day Years [...] How often do you attend chur or zoroastrianism services? Never 11/25/2022 Do you belong to any clubs o r organizations such as anabaptism groups, unions, fraternal or athletic groups, or [...] and heating? Not hard at all 11/25/2022 [facility] Occupat ional Health - Occupational [...] place to sleep or slept in a usp (including now)? No 11/25/2022 Comments Unknown Sex [...] Procedure Visit [facility] [address] [facility] 120 [place] [address] Alex Tam DPM 3006 [facility] 5 [place] [address] 10/30/2024 11:30 AM EDT Office Visit [facility] 112 [facility] 110 [place] [address] Aarti Castillo NP 112 [facility] 110 [place] [address] documented as of this encounter Procedures Procedure Name Priority Date/Time Associated Diagnosis Comments CT HEAD FOR BRAINLAB W/O CONTRAST Routine 12/01/2022 9:54 AM EDT documented in this encounter Results * CT HEAD FOR BRAINLAB W/O CONTRAST (12/01/2022 9:54 AM EDT) Anatomical Region Laterality Modality Radiographic Gillian ging us Unknown Practice A IMG XR PROCEDURES Final Resul t documented in this encounter Visit Diagnoses Not on filedocumented in this encounter Care Teams Certified Solid Waste Facility Operator Relationship Specialty Start Date End Date Roc Steele MD [address] [place] [address] [place] [address] PCP - ACO Reach 09/22/22 06/29/23 Roc Steele MD [address] [facility] 110 [place] [address] PCP - General Internal Medicine 09/28/22 Roc Steele MD [address] [facility] 110 [place] [address] PCP - ACO Reach 08/30/23 Luis Felipe Dugan DO [address] [facility] 110 [place] [address] Referring Physician Neurology 03/07/24 Raya Holt, RN Clinical Advocate Family Medicine 06/07/24 07/19/24 Gladis Laird LPN 07/19/24 documented as of this encounter
--- OUTSIDE RECORDS SUMMARY | 2024-10-01 12:36 | XMS_ITS | Encounter Summary ---
Author Organization [facility] Address [address] [place] [address] Care Team Providers Care Shotgun Shell Assembly Machine Operator Name Role Phone Roc Steele MD Primary Care Provider [phone] Roc Steele MD Unavailable [phone] Luis Felipe Dugan DO Unavailable [phone] Raya Holt RN Unavailable [phone] Gladis Laird LPN Unavailable Unavailable Encounter Details Date Type Department Care Team (Late st Contact Info) Description 03/06/2024 Orders Only [facility] 703 [facility] [address] [place] [address] Aarti Castillo, NAPHTHALENE OPERATOR 112 [facility] 110 [place] [address] Social History Tobacco Use Types [...] often do you attend chur ch or oriental orthodox services? Never 11/25/2022 Do you belong to any clubs o r organizations such as anglican groups, unions, fraternal or athletic groups, or [...] Recorded Patient Health Questionnaire-2 Score 0 07/06/2023 [facility] Occupat ional Health - Occupational [...] place to sleep or slept in a custodial (including now)? No 11/25/2022 Comments Unknown Sex and Gender Information Value Date Recorded Sex Assigned at Not on file Legal Sex Female 7:20 PM EDT Gender Identity Not on file Sexual Orientation Not on file documented as of this encounter Plan of Treatment Upcoming Encounters Date Type Department Care Team ([facility] st Contact Info) Description 10/10/2024 3:00 PM EDT Procedure Visit [facility] 112 [facility] 120 [place] [address] Alex Tam DPM 3006 [facility] 5 [place] [address] 10/30/2024 11:30 AM EDT Office Visit [facility] 112 [facility] 110 [place] [address] Aarti Castillo, NAPHTHALENE OPERATOR 112 [facility] 110 [place] [address] documented as of this encounter Procedures Procedure Name Priority Date/Time Associated Diagnosis Comments EMG AND NERVE CONDUCTION STUDY Routine 07/28/2021 3:41 PM EDT documented in this encounter Results * EMG AND NERVE CONDUCTION STUDY (07/28/2021 3:41 PM EDT) Aarti Castillo NAPHTHALENE OPERATOR NEUROLOGY ORDERABLES Final R esult documented in this encounter Visit Diagnoses Not on filedocumented in this encounter Additional Health Concerns Assessment Noted Time PHQ-9 Depression Total Score: 0 07/06/19 3:00 PM EST documented as of this encounter Care Teams Shotgun Shell Assembly Machine Operator Relationship Specialty Start Date End Date Roc Steele MD [address] [facility] 110 [place] [address] PCP - General Internal Medicine 09/28/22 Roc Steele MD [address] [place] [address] [place] [address] PCP - ACO Reach 08/30/23 Luis Felipe Dugan DO [address] [facility] 110 [place] [address] Referring Physician Neurology 03/07/24 Raya Holt, RN Clinical Advocate Family Medicine 06/07/24 07/19/24 Gladis Laird LPN 07/19/24 documented as of this encounter
--- OUTSIDE RECORDS SUMMARY | 2024-10-01 12:36 | XMS_ITS | Encounter Summary ---
Author Organization [facility] Address [address] [place] [address] Care Team Providers Care Cosmetologist Apprentice Name Role Phone Roc Steele MD Primary Care Provider [phone] Roc Steele MD Unavailable [phone] Luis Felipe Dugan DO Unavailable [phone] Raya Holt RN Unavailable [phone] Gladis Laird LPN Unavailable Unavailable Encounter Details Date Type Department Care Team (Late st Contact Info) Description 06/04/2024 Abstract [facility] 112 [facility] 110 [place] [address] Roc Steele MD 112 [facility] 110 [place] [address] Social History Tobacco Use Types [...] 11/25/2022 How often do you attend chur [employer] or mormonism services? Never 11/25/2022 Do you belong to any clubs o r organizations such as amish groups, unions, fraternal or athletic groups, or [...] Recorded Patient Health Questionnaire-2 Score 0 07/06/2023 [facility] of Occupat ionmi Health - Occupational Stress Questionnaire Answer Date [...] place to sleep or slept in a skilled nursing (including now)? No 11/25/2022 Comments Unknown Sex and Gender Information Value Date Recorded Sex Assigned at Not on file Legal Sex Female 7:20 PM EDT Gender Identity Not on file Sexual Orientation Not on file documented as of this encounter Plan of Treatment Upcoming Encounters Date Type Department Care Team ([facility] st Contact Info) Description 10/10/2024 3:00 PM EDT Procedure Visit [facility] 112 [facility] 120 [place] [address] Alex Tam DPM 3006 [facility] 5 [place] [address] 10/30/2024 11:30 AM EDT Office Visit [facility] 112 [facility] 110 [place] [address] Aarti Castillo, CAREER SERVICES COORDINATOR 112 [facility] 110 [place] [address] documented as of this encounter Visit Diagnoses Not on filedocumented in this encounter Additional Health Concerns Assessment Noted Time PHQ-9 Depression Total Score: 0 07/06/19 24 3:00 PM EST documented as of this encounter Care Teams Cosmetologist Apprentice Relationship Specialty Start Date End Date Roc Steele MD [address] [facility] 110 [place] [address] PCP - General Internal Medicine 09/28/22 Roc Steele MD [address] [facility] 110 [place] [address] PCP - ACO Reach 08/30/23 Luis Felipe Dugan DO [address] [facility] 110 [place] [address] Referring Physician Neurology 03/07/24 Raya Holt, RN Clinical Advocate Family Medicine 06/07/24 07/19/24 Gladis Laird LPN 07/19/24 documented as of this encounter
--- OUTSIDE RECORDS SUMMARY | 2024-10-01 12:36 | XMS_ITS | Encounter Summary ---
Author Organization [facility] Address [address] [place] [address] Phone Care Team Providers Care Babysitter Name Role Phone Roc Steele MD Primary Care Provider [phone] Encounter Details Date Type Department Care Team (Late st Contact Info) Description 07/03/2024 Scanned Document [facility] [place] [facility] [address] [place] [phone] Scanning, Generic Provider Social History Tobacco Use Types Packs/Day Years [...] Office Visit [facility] 703 [facility] 250 [place] [address] Amber Hawley MD [address] [facility] 130 [place] [address] documented as of this encounter Visit Diagnoses Not on filedocumented in this encounter Care Teams Babysitter Relationship Specialty Start Date End Date Roc Steele MD 112 [facility] 110 [place] [address] PCP - General 10/04/22 documented as of this encounter
--- OUTSIDE RECORDS SUMMARY | 2024-10-01 12:36 | XMS_ITS | Encounter Summary ---
Author Organization [facility] Address [address] [place] [address] Care Team Providers Care Senior It Project Manager Name Role Phone Roc Steele MD Primary Care Provider [phone] Roc Steele MD Unavailable [phone] Luis Felipe Dugan DO Unavailable [phone] Raya Holt RN Unavailable [phone] Gladis Laird LPN Unavailable Unavailable Encounter Details Date Type Department Care Team (Late st Contact Info) Description 05/07/2024 Abstract [facility] 112 [facility] 110 [place] [address] Roc Steele MD 112 [facility] 110 [place] [address] Social History Tobacco Use Types [...] 11/25/2022 How often do you attend chur [employer] or presybeterian services? Never 11/25/2022 Do you belong to any clubs o r organizations such as methodist groups, unions, fraternal or athletic groups, or [...] Recorded Patient Health Questionnaire-2 Score 0 07/06/2023 [facility] of Occupat ionmd Health - Occupational Stress Questionnaire Answer Date [...] place to sleep or slept in a retirement (including now)? No 11/25/2022 Comments Unknown Sex and Gender Information Value Date Recorded Sex Assigned at Not on file Legal Sex Female 7:20 PM EDT Gender Identity Not on file Sexual Orientation Not on file documented as of this encounter Plan of Treatment Upcoming Encounters Date Type Department Care Team ([facility] st Contact Info) Description 10/10/2024 3:00 PM EDT Procedure Visit [facility] 112 [facility] 120 [place] [address] Alex Tam DPM 3006 [facility] 5 [place] [address] 10/30/2024 11:30 AM EDT Office Visit [facility] 112 [facility] 110 [place] [address] Aarti Castillo, FABRIC AND ACCESSORIES ESTIMATOR 112 [facility] 110 [place] [address] documented as of this encounter Visit Diagnoses Not on filedocumented in this encounter Additional Health Concerns Assessment Noted Time PHQ-9 Depression Total Score: 0 07/06/19 24 3:00 PM EST documented as of this encounter Care Teams Senior It Project Manager Relationship Specialty Start Date End Date Roc Steele MD [address] [facility] 110 [place] [address] PCP - General Internal Medicine 09/28/22 Roc Steele MD [address] [facility] 110 [place] [address] PCP - ACO Reach 08/30/23 Luis Felipe Dugan DO [address] [facility] 110 [place] [address] Referring Physician Neurology 03/07/24 Raya Holt, RN Clinical Advocate Family Medicine 06/07/24 07/19/24 Gladis Liard LPN 07/19/24 documented as of this encounter
--- OUTSIDE RECORDS SUMMARY | 2024-10-01 12:36 | XMS_ITS | Encounter Summary ---
Author Organization [facility] Address [address] [place] [address] Care Team Providers Care Catia Designer Name Role Phone Roc Steele MD Primary Care Provider [phone] Roc Steele MD Unavailable [phone] Luis Felipe Dugan DO Unavailable [phone] Raya Holt RN Unavailable [phone] Gladis Laird LPN Unavailable Unavailable Encounter Details Date Type Department Care Team (Late st Contact Info) Description 05/30/2024 Abstract [facility] 112 [facility] 110 [place] [address] Roc Steele MD 112 [facility] 110 [place] [address] Social History Tobacco Use Types [...] 11/25/2022 How often do you attend chur [employer] or holiness services? Never 11/25/2022 Do you belong to any clubs o r organizations such as druze groups, unions, fraternal or athletic groups, or [...] Recorded Patient Health Questionnaire-2 Score 0 07/06/2023 [facility] of Occupat ionpr Health - Occupational Stress Questionnaire Answer Date [...] Upcoming Encounters Date Type Department Care Team ([facility] st Contact Info) Description 10/10/2024 3:00 PM EDT Procedure Visit [facility] 112 [facility] 120 [place] [address] Alex Tam DPM 3006 [facility] 5 [place] [address] 10/30/2024 11:30 AM EDT Office Visit [facility] 112 [facility] 110 [place] [address] Aarti Castillo, FAST FOODS WORKER 112 [facility] 110 [place] [address] documented as of this encounter Visit Diagnoses Not on filedocumented in this encounter Additional Health Concerns Assessment Noted Time PHQ-9 Depression Total Score: 0 07/06/19 24 3:00 PM EST documented as of this encounter Care Teams Catia Designer Relationship Specialty Start Date End Date Roc Steele MD [address] [facility] 110 [place] [address] PCP - General Internal Medicine 09/28/22 Roc Steele MD [address] [facility] 110 [place] [address] PCP - ACO Reach 08/30/23 Luis Felipe Dugan DO [address] [facility] 110 [place] [address] Referring Physician Neurology 03/07/24 Raya Holt, RN Clinical Advocate Family Medicine 06/07/24 07/19/24 Gladis Laird LPN 07/19/24 documented as of this encounter
--- OUTSIDE RECORDS SUMMARY | 2024-10-01 12:36 | XMS_ITS | Encounter Summary ---
Author Organization [facility] Address [address] [place] [address] Care Team Providers Care Broom Worker Name Role Phone Roc Steele MD Primary Care Provider [phone] Roc Steele MD Unavailable [phone] Luis Felipe Dugan DO Unavailable [phone] Raya Holt RN Unavailable [phone] Gladis Laird LPN Unavailable Unavailable Encounter Details Date Type Department Care Team (Late st Contact Info) Description 05/21/2024 Abstract [facility] 112 [facility] 110 [place] [address] Roc Steele MD 112 [facility] 110 [place] [address] Social History Tobacco Use Types [...] 11/25/2022 How often do you attend chur [employer] or synagogue services? Never 11/25/2022 Do you belong to any clubs o r organizations such as sikhism groups, unions, fraternal or athletic groups, or [...] Recorded Patient Health Questionnaire-2 Score 0 07/06/2023 [facility] of Occupat ionsc Health - Occupational Stress Questionnaire Answer Date [...] Upcoming Encounters Date Type Department Care Team ([facility] st Contact Info) Description 10/10/2024 3:00 PM EDT Procedure Visit [facility] 112 [facility] 120 [place] [address] Alex Tam DPM 3006 [facility] 5 [place] [address] 10/30/2024 11:30 AM EDT Office Visit [facility] 112 [facility] 110 [place] [address] Aarti Castillo, RIBBON BLOCKER 112 [facility] 110 [place] [address] documented as of this encounter Visit Diagnoses Not on filedocumented in this encounter Additional Health Concerns Assessment Noted Time PHQ-9 Depression Total Score: 0 07/06/19 24 3:00 PM EST documented as of this encounter Care Teams Broom Worker Relationship Specialty Start Date End Date Roc Stelee MD [address] [facility] 110 [place] [address] PCP - General Internal Medicine 09/28/22 Roc Steele MD [address] [facility] 110 [place] [address] PCP - ACO Reach 08/30/23 Luis Felipe Dugan DO [address] [facility] 110 [place] [address] Referring Physician Neurology 03/07/24 Raya Holt, RN Clinical Advocate Family Medicine 06/07/24 07/19/24 Gladis Laird LPN 07/19/24 documented as of this encounter
--- OUTSIDE RECORDS SUMMARY | 2024-10-01 12:36 | XMS_ITS | Encounter Summary ---
Author Organization [facility] Address [address] [place] [address] Care Team Providers Care Detailer Furniture Name Role Phone Roc Steele MD Primary Care Provider [phone] Roc Steele MD Unavailable [phone] Luis Felipe Dugan DO Unavailable [phone] Gladis Laird LPN Unavailable Unavailable Encounter Details Date Type Department Care Team (Late st Contact Info) Description 08/20/2024 Abstract [facility] [address] [facility] 110 [place] [address] Roc Steele MD 112 [facility] 110 [place], [place] [address] Social History Tobacco Use Types Packs/Day Years [...] How often do you attend chur or church services? Never 11/25/2022 Do you belong to [...] Recorded Patient Health Questionnaire-2 Score 0 08/19/2024 [facility] of Occupat ional Health - Occupational [...] Upcoming Encounters Date Type Department Care Team ([facility] st Contact Info) Description 10/10/2024 3:00 PM EDT Procedure Visit [facility] 112 [facility] 120 [place] [address] Alex Tam DPM 3006 [facility] 5 [place] [address] 10/30/2024 11:30 AM EDT Office Visit [facility] 112 [facility] 110 [place] [address] Aarti Castillo NP 112 [facility] 110 [place], [place] [address] documented as of this encounter Visit Diagnoses Not on filedocumented in this encounter Additional Health Concerns Assessment Noted Time PHQ-9 Depression Total Score: 0 07/06/19 24 3:00 PM EST documented as of this encounter Care Teams Detailer Furniture Relationship Specialty Start Date End Date Roc Steele MD [address] [facility] 110 [place] [address] PCP - General Internal Medicine 09/28/22 Roc Steele MD [address] [facility] 110 [place] [address] PCP - ACO Reach 08/30/23 Luis Felipe Dugan DO [address] [facility] 110 [place] [address] Referring Physician Neurology 03/07/24 Gladis Laird LPN 07/19/24 documented as of this encounter
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
--- OUTSIDE RECORDS SUMMARY | 2024-10-01 12:36 | XMS_ITS | Encounter Summary ---
Author Organization [facility] Address [address] [place] [address] Care Team Providers Care Wet Sander Name Role Phone Roc Steele MD Primary Care Provider [phone] Roc Steele MD Unavailable [phone] Luis Felipe Dugan DO Unavailable [phone] Gladis Laird LPN Unavailable Unavailable Encounter Details Date Type Department Care Team (Late st Contact Info) Description 08/07/2024 Abstract [facility] [address] [facility] 110 [place] [address] Roc Steele MD 112 [facility] 110 [place], [place] [id number] Social History Tobacco Use Types Packs/Day Years [...] How often do you attend chur or confucianist services? Never 11/25/2022 Do you belong to any clubs o r organizations such as taoist groups, unions, fraternal or athletic groups, or [...] Date Recorded Patient Health Questionnaire-2 Score 0 08/01/2024 [facility] of Occupat ional Health - Occupational [...] place to sleep or slept in a residential (including now)? No 11/25/2022 Comments Unknown Sex and Gender Information Value Date Recorded Sex Assigned at Not on file Legal Sex Female 7:20 PM EDT Gender Identity Not on file Sexual Orientation Not on file documented as of this encounter Plan of Treatment Upcoming Encounters Date Type Department Care Team ([facility] st Contact Info) Description 10/10/2024 3:00 PM EDT Procedure Visit [facility] 112 [facility] 120 [place] [address] Alex Tam DPM 3006 [facility] 5 [place] [address] 10/30/2024 11:30 AM EDT Office Visit [facility] 112 [facility] 110 [place] [address] Aarti Castillo NP 112 [facility] 110 [place], [place] [address] documented as of this encounter Visit Diagnoses Not on filedocumented in this encounter Additional Health Concerns Assessment Noted Time PHQ-9 Depression Total Score: 0 07/06/19 24 3:00 PM EST documented as of this encounter Care Teams Wet Sander Relationship Specialty Start Date End Date Roc Steele MD [address] [facility] 110 [place] [address] PCP - General Internal Medicine 09/28/22 Roc Steele MD [address] [facility] 110 [place] [address] PCP - ACO Reach 08/30/23 Luis Felipe Dugan DO [address] [facility] 110 [place] [address] Referring Physician Neurology 03/07/24 Gladis Laird LPN 07/19/24 documented as of this encounter
--- OUTSIDE RECORDS SUMMARY | 2024-10-01 12:36 | XMS_ITS | Encounter Summary ---
Author Organization [facility] Address [address] [place] [address] Care Team Providers Care Electrical Instrument Repairer Name Role Phone Roc Steele MD Unavailable [phone] Roc Steele MD Primary Care Provider [phone] Roc Steele MD Unavailable [phone] Luis Felipe Dugan DO Unavailable [phone] Raya Holt RN Unavailable [phone] Gladis Laird LPN Unavailable Unavailable Encounter Details Date Type Department Care Team (Late st Contact Info) Description 12/07/2022 Abstract [facility] [address] [facility] 110 [place] [address] Roc Steele MD [address] [facility] 110 [place], [place] [address] Social History Tobacco Use Types Packs/Day Years [...] How often do you attend chur or yazidi services? Never 11/25/2022 Do you belong to any clubs o r organizations such as shinto groups, unions, fraternal or athletic groups, or [...] and heating? Not hard at all 11/25/2022 [facility] of Occupat ional Health - [...] Visit [facility] PODIAT[facility] [address] [facility] 120 [place] [address] Alex Tam, DPM 3006 [facility] 5 [place] [address] 10/30/2024 11:30 AM EDT Office Visit [facility] [address] [facility] 110 [place] [address] Aarti Castillo CALCULATING MACHINE OPERATOR [address] [facility] 110 [place] [address] documented as of this encounter Visit Diagnoses Not on filedocumented in this encounter Care Teams Electrical Instrument Repairer Relationship Specialty Start Date End Date Roc Steele MD [address] [facility] 110 [place] [address] PCP - ACO Reach 09/22/22 06/29/23 Roc Steele MD [address] [facility] 110 [place] [address] PCP - General Internal Medicine 09/28/22 Roc Steele MD [address] [facility] 110 [place] [address] PCP - ACO Reach 08/30/23 Luis Felipe Dugan DO [address] [facility] 110 [place] [address] Referring Physician Neurology 03/07/24 Raya Holt, RN Clinical Advocate Family Medicine 06/07/24 07/19/24 Gladis Laird LPN 07/19/24 documented as of this encounter
--- OUTSIDE RECORDS SUMMARY | 2024-10-01 12:36 | XMS_ITS | Encounter Summary ---
Author Organization [facility] Address [address] [place] [address] Care Team Providers Care Aoc Director Intelligence Officer Name Role Phone Roc Steele MD Unavailable [phone] Roc Steele MD Primary Care Provider [phone] Roc Steele MD Unavailable [phone] Luis Felipe Dugan DO Unavailable [phone] Raya Holt RN Unavailable [phone] Gladis Laird LPN Unavailable Unavailable Encounter Details Date Type Department Care Team (Late st Contact Info) Description 11/14/2022 Orders Only [facility] [address] [facility] [address] [place] [address] Aarti Castillo, CIGARETTE STAMPER [address] [facility] 110 [place], [place] [address] Social History Tobacco Use Types Packs/Day Years Used Date Smoking Tobacco: Never Smokeless Tobacco: Never Comments Unknown Sex and Gender Information Value Date Recorded Sex Assigned at Not on file Legal Sex Female 7:20 PM EDT Gender Identity Not on file Sexual Orientation Not on file documented as of this encounter Plan of Treatment Upcoming Encounters Date Type Department Care Team (Late Contact Info) Description 10/10/2024 3:00 PM EDT Procedure Visit [facility] [address] [facility] [address] [place] [address] Alex Tam DPRen 3006 [facility] [place] 5 [place] [address] 10/30/2024 11:30 AM EDT Office Visit [facility] [address] [facility] [address] [place] [address] Aarti Castillo, CIGARETTE STAMPER [address] [facility] 110 [place] [address] documented as of this encounter Procedures Procedure Name Priority Date/Time Associated Diagnosis Comments HOME SLEEP TEST Routine 11/04/2022 8:25 AM EDT documented in this encounter Results * Home sleep test (11/04/2022 8:25 AM EDT) us Aarti Castillo [facility] ORDERABLES Maggi l Result documented in this encounter Visit Diagnoses Not on filedocumented in this encounter Care Teams Aoc Director Intelligence Officer Relationship Specialty Start Date End Date Roc Steele MD [address] [facility] [address] [place] [address] PCP - ACO Reach 09/22/22 06/29/23 Roc Steele MD [address] [facility] [address] [place] [address] PCP - General Internal Medicine 09/28/22 Roc Steele MD [address] [facility] [address] [place] [address] PCP - ACO Reach 08/30/23 Luis Felipe Dugan DO [address] [facility] [address] [place] [address] Referring Physician Neurology 03/07/24 Raya Holt, RN Clinical Advocate Family Medicine 06/07/24 07/19/24 Gladis Laird LPN 07/19/24 documented as of this encounter
--- OUTSIDE RECORDS SUMMARY | 2024-10-01 12:36 | XMS_ITS | Encounter Summary ---
Author Organization [facility] Address [address] [place] [address] Care Team Providers Care Marketing Intern Name Role Phone Roc Steele MD Primary Care Provider [phone] Roc Steele MD Unavailable [phone] Luis Felipe Dugan DO Unavailable [phone] Raya Holt RN Unavailable [phone] Gladis Laird LPN Unavailable Unavailable Encounter Details Date Type Department Care Team (Late st Contact Info) Description 05/16/2024 Abstract [facility] 112 [facility] 110 [place] [address] Roc Steele MD 112 [facility] 110 [place] [address] Social History Tobacco Use Types [...] 11/25/2022 How often do you attend chur [employer]ox or anabaptist services? Never 11/25/2022 Do you belong to [...] Recorded Patient Health Questionnaire-2 Score 0 07/06/2023 [facility] of Occupat iondc Health - Occupational Stress Questionnaire Answer Date [...] Upcoming Encounters Date Type Department Care Team ([facility] st Contact Info) Description 10/10/2024 3:00 PM EDT Procedure Visit [facility] 112 [facility] 120 [place] [address] Alex Tam DPM 3006 [facility] 5 [place] [address] 10/30/2024 11:30 AM EDT Office Visit [facility] 112 [facility] 110 [place] [address] Aarti Castillo, PUBLIC HEALTH OUTREACH WORKER 112 [facility] 110 [place] [address] documented as of this encounter Visit Diagnoses Not on filedocumented in this encounter Additional Health Concerns Assessment Noted Time PHQ-9 Depression Total Score: 0 07/06/19 24 3:00 PM EST documented as of this encounter Care Teams Marketing Intern Relationship Specialty Start Date End Date Roc Steele MD [address] [facility] 110 [place] [address] PCP - General Internal Medicine 09/28/22 Roc Steele MD [address] [facility] 110 [place] [address] PCP - ACO Reach 08/30/23 Luis Felipe Dugan DO [address] [facility] 110 [place] [address] Referring Physician Neurology 03/07/24 Raya Holt, RN Clinical Advocate Family Medicine 06/07/24 07/19/24 Gladis Laird LPN 07/19/24 documented as of this encounter
--- OUTSIDE RECORDS SUMMARY | 2024-10-01 12:36 | XMS_ITS | Encounter Summary ---
Author Organization [facility] Address [address] [place] [address] Care Team Providers Care Corn Husker Name Role Phone Roc Steele MD Primary Care Provider [phone] Roc Steele MD Unavailable [phone] Luis Felipe Dugan DO Unavailable [phone] Raya Holt RN Unavailable [phone] Gladis Laird LPN Unavailable Unavailable Encounter Details Date Type Department Care Team (Late st Contact Info) Description 05/20/2024 Abstract [facility] 112 [facility] 110 [place] [address] Roc Steele MD 112 [facility] 110 [place] [address] Social History Tobacco Use Types [...] 11/25/2022 How often do you attend chur ProDe[employer] or jehovah's witness services? Never 11/25/2022 Do [...] Recorded Patient Health Questionnaire-2 Score 0 07/06/2023 [facility] of Occupat ionnh Health - Occupational Stress Questionnaire Answer Date [...] place to sleep or slept in a halfway (including now)? No 11/25/2022 Comments Unknown Sex and Gender Information Value Date Recorded Sex Assigned at Not on file Legal Sex Female 7:20 PM EDT Gender Identity Not on file Sexual Orientation Not on file documented as of this encounter Plan of Treatment Upcoming Encounters Date Type Department Care Team ([facility] st Contact Info) Description 10/10/2024 3:00 PM EDT Procedure Visit [facility] 112 [facility] 120 [place] [address] Alex Tam DPM 3006 [facility] 5 [place] [address] 10/30/2024 11:30 AM EDT Office Visit [facility] 112 [facility] 110 [place] [address] Aarti Castillo, DIRECTOR OF FOOD AND BEVERAGE SERVICES 112 [facility] 110 [place] [address] documented as of this encounter Visit Diagnoses Not on filedocumented in this encounter Additional Health Concerns Assessment Noted Time PHQ-9 Depression Total Score: 0 07/06/19 24 3:00 PM EST documented as of this encounter Care Teams Corn Husker Relationship Specialty Start Date End Date Roc Steele MD [address] [facility] 110 [place] [address] PCP - General Internal Medicine 09/28/22 Roc Steele MD [address] [facility] 110 [place] [address] PCP - ACO Reach 08/30/23 Luis Felipe Dugan DO [address] [facility] 110 [place] [address] Referring Physician Neurology 03/07/24 Raya Holt, RN Clinical Advocate Family Medicine 06/07/24 07/19/24 Gladis Laird LPN 07/19/24 documented as of this encounter
--- OUTSIDE RECORDS SUMMARY | 2024-10-01 12:36 | XMS_ITS | Encounter Summary ---
Author Organization [facility] Address [address] [place] [address] Care Team Providers Care Jewish History Professor Name Role Phone Roc Steele MD Unavailable [phone] Roc Steele MD Primary Care Provider [phone] Roc Steele MD Unavailable [phone] Luis Felipe Dugan DO Unavailable [phone] Raya Holt RN Unavailable [phone] Gladis Laird LPN Unavailable Unavailable Encounter Details Date Type Department Care Team (Late st Contact Info) Description 10/07/2022 Orders Only [facility] [address] [facility] [address] [place] [address] Aarti Castillo, GRAIN RECEIVER [address] [facility] [address] [place], [place] [address] Social History Tobacco Use Types Packs/Day Years [...] CI PODIATRY [address] [place] [address] [place] [address] Alex Tam DPRen 3006 [facility] [place] 5 [place] [address] 10/30/2024 11:30 AM EDT Office Visit [facility] [address] [facility] [address] [place] [address] Aarti Castillo, GRAIN RECEIVER [address] [facility] [address] [place] [address] documented as of this encounter Procedures Procedure Name Priority Date/Time Associated Diagnosis Comments POLYSOMNOGRAPHY Routine 10/03/2022 9:04 AM EDT documented in this encounter Results * Polysomnography (10/03/2022 9:04 AM EDT) us Aarti Castillo GRAIN RECEIVER [facility] ORDERABLES Maggi l Result documented in this encounter Visit Diagnoses Not on filedocumented in this encounter Care Teams Jewish History Professor Relationship Specialty Start Date End Date Roc Steele MD [address] [facility] [address] [place] [address] PCP - ACO Reach 09/22/22 06/29/23 Roc Steele MD [address] [facility] [address] [place] [address] PCP - General Internal Medicine 09/28/22 Roc Steele MD [address] [facility] [address] [place] [address] PCP - ACO Reach 08/30/23 Luis Felipe Dugan DO [address] [facility] [address] [place] [address] Referring Physician Neurology 03/07/24 Raya Holt, RN Clinical Advocate Family Medicine 06/07/24 07/19/24 Gladis Laird LPN 07/19/24 documented as of this encounter
--- OUTSIDE RECORDS SUMMARY | 2024-10-01 12:37 | XMS_ITS | Encounter Summary ---
Author Organization [facility] Address [address] [place] [address] Care Team Providers Care Piece Meat Trimmer Name Role Phone Roc Steele MD Primary Care Provider [phone] Roc Steele MD Unavailable [phone] Luis Felipe Dugan DO Unavailable [phone] Raya Holt RN Unavailable [phone] Gladis Laird LPN Unavailable Unavailable Encounter Details Date Type Department Care Team (Late st Contact Info) Description 10/16/2023 Abstract [facility] [address] [facility] 110 [place] [address] Roc Steele MD 112 [facility] 110 [place] [address] Social History Tobacco Use Types [...] often do you attend chur ch or adventism services? Never 11/25/2022 Do you belong to any clubs o r organizations such as synagogue groups, unions, fraternal or athletic groups, or [...] Health Questionnaire-2 Score 0 07/06/2023 [facility] of Occupat ional [facility] - Occupational Stress Questionnaire Answer Date Recorded [...] place to sleep or slept in a [place] facility (including now)? No 11/25/2022 Comments Unknown Sex [...] EDT Procedure Visit [facility] PODIATRY [address] [facility] 120 [place] [address] Alex Tam DPM 3006 [facility] [place] [address] 10/30/2024 11:30 AM EDT Office Visit [facility] [address] [facility] 110 [place] [address] Aarti Castillo, APRON OPERATOR 112 [facility] 110 [place] [address] documented as of this encounter Visit Diagnoses Not on filedocumented in this encounter Additional Health Concerns Assessment Noted Time PHQ-9 Depression Total Score: 0 07/06/19 24 3:00 PM EST documented as of this encounter Care Teams Piece Meat Trimmer Relationship Specialty Start Date End Date Roc Steele MD [address] [facility] 110 [place] [address] PCP - General Internal Medicine 09/28/22 Roc Steele MD [address] [facility] 110 [place] [address] PCP - ACO Reach 08/30/23 Luis Felipe Dugan DO [address] [facility] 110 [place] [address] Referring Physician Neurology 03/07/24 Raya Holt, RN Clinical Advocate Family Medicine 06/07/24 07/19/24 Gladis Laird LPN 07/19/24 documented as of this encounter
--- OUTSIDE RECORDS SUMMARY | 2024-10-01 12:37 | XMS_ITS | Encounter Summary ---
Author Organization [facility] Address [address] [place] [address] Care Team Providers Care Manager It Training Name Role Phone Roc Steele MD Primary Care Provider [phone] Roc Steele MD Unavailable [phone] Luis Felipe Dugan DO Unavailable [phone] Raya Holt RN Unavailable [phone] Gladis Laird LPN Unavailable Unavailable Encounter Details Date Type Department Care Team (Late st Contact Info) Description 07/13/2023 Abstract [facility] 112 [facility] [address] [place] [id number] Roc Steele MD 112 [facility] 110 [place] [address] Social History Tobacco Use Types [...] Recorded Patient Health Questionnaire-2 Score 0 07/06/2023 [facility] - Occupational Stress Questionnaire Answer Date [...] Upcoming Encounters Date Type Department Care Team ([facility] st Contact Info) Description 10/10/2024 3:00 PM EDT Procedure Visit [facility] 112 [facility] 120 [place] [phone] Alex Tam DPM 3006 [facility] 5 [place] [address] 10/30/2024 11:30 AM EDT Office Visit [facility] 112 [facility] 110 [place] [phone] Aarti Castillo, COLD MOLDING PRESS OPERATOR 112 [facility] 110 [place] [address] documented as of this encounter Visit Diagnoses Not on filedocumented in this encounter Additional Health Concerns Assessment Noted Time PHQ-9 Depression Total Score: 0 07/06/19 24 3:00 PM EST documented as of this encounter Care Teams Manager It Training Relationship Specialty Start Date End Date Roc Steele MD [address] [facility] 110 [place] [address] PCP - General Internal Medicine 09/28/22 Roc Steele MD [address] [facility] 110 [place] [address] PCP - ACO Reach 08/30/23 Luis Felipe Dugan DO [address] [facility] 110 [place] [address] Referring Physician Neurology 03/07/24 Raya Holt, RN Clinical Advocate Family Medicine 06/07/24 07/19/24 Gladis Laird LPN 07/19/24 documented as of this encounter
--- OUTSIDE RECORDS SUMMARY | 2024-10-01 12:37 | XMS_ITS | Clinical Summary ---
Author Organization [facility] Address [address] [place] [address] Phone Care Team Providers Care Manager Human Resources Name Role Phone Roc Steele MD Primary Care Provider [phone] Allergies Active Allergy Reactions Criticality Noted Date Comments Moxifloxacin Angioedema 07/15/2024 Ciprofloxacin Unknown 07/15/2024 Sulfa (Sulfonamide Antibiotics) Unknown 06/29 Medications HYDROcodone-acetamin ophen (Nathrop) 5-325 mg tablet Take 1 tablet by mouth every 4 hours if needed for severe pain (7 - 10). 4 Active pantoprazole (ProtoNix) 40 mg EC tablet Take 1 tablet (40 mg) by mouth once daily. 4 Active nortriptyline (Pamelor) 10 mg capsule Take 3 capsules (30 mg) by mouth. 4 Active simvastatin (Zocor) 10 mg tablet Take 1 tablet (10 mg) by mouth once daily. 4 Active metoprolol succinate XL (Toprol-XL) 50 mg 24 hr tablet Take 1 tablet (50 mg) by mouth twice a day. 5 Active zolpidem (Ambien) 10 mg tablet Take 1 tablet (10 mg) by mouth once daily at bedtime. 5 Active tiZANidine (Zanaflex) 4 mg tablet Take 1 tablet (4 mg) by mouth 3 times a day. 4 Active meloxicam (Mobic) 15 mg tablet Take 1 tablet (15 mg) by mouth once daily. Active ALPRAZolam (Xanax) 0.25 mg tablet Take 1 tablet (0.25 mg) by mouth as needed at bedtime for anxiety. Active magnesium oxide (Mag-Ox) 400 mg (241.3 mg magnesium) tabletIndications:Pa roxysmal supraventricular tachycardia Take 1 tablet (400 mg) by mouth once daily. 90 tablet 3 5 026 Active Active Problems Problem Noted Date Diagnosed Date At high risk for falls 07/15/2024 Uses roller walker 07/15/2024 Encounter to establish care with new doctor 06/29 Never smoked cigarettes 07/15/2024 Severe obesity (BMI >= 40) (Multi) 07/15/2024 Primary hypertension 07/15/2024 Carotid stenosis 07/15/2024 Paroxysmal supraventricular tachycardia 07/16/19 Palpitations 07/15/2024 Gastroesophageal reflux disease without esophagi tis 07/15/2024 Mixed hyperlipidemia 07/15/2024 CKD (chronic kidney disease) 07/15/2024 Abnormal EKG 07/15/2024 Chest discomfort 07/15/2024 Lightheadedness 07/15/2024 Encounters Date Type Department Care Team Description 09/19/2024 1:00 PM EDT Ancillary Procedure [address] [phone] Paroxysmal supraventricular tachycardia; Abnormal EKG; Lightheadedness; Chest discomfort; Palpitations 09/19/2024 11:24 AM EDT - 09/19/2024 11:59 PM EDT Hospital Encounter [address] [phone] Discharge Disposition: Home 09/19/2024 11:24 AM EDT - 09/19/2024 11:59 PM EDT Hospital Encounter [address] [phone] Discharge Disposition: Home 09/19/2024 Travel 09/19/[address] [phone] Hina Bangura RN 09/19/[address] [phone] Hina Bangura RN Error (VOID this visit) 09/18/2024 10:16 AM EDT - 09/18/2024 11:59 PM EDT Hospital Encounter [address] [phone] Discharge Disposition: Home 09/18/2024 10:16 AM EDT - 09/18/2024 11:59 PM EDT Hospital Encounter [address] [phone] Discharge Disposition: Home 09/18/2024 10:16 AM EDT - 09/18/2024 11:59 PM EDT Hospital Encounter [address] [phone] Paroxysmal supraventricular tachycardia; Abnormal EKG; Palpitations Discharge Disposition: Home 09/18/2024 10:15 AM EDT Hospital Encounter [address] [phone] Lightheadedness; Chest discomfort; Palpitations; Mixed hyperlipidemia Discharge Disposition: Home 09/18/2024 Travel 07/15/2024 11:15 AM EDT Office Visit [address] [phone] Rc Kern MD Encounter to establish care with new doctor; Paroxysmal supraventricular tachycardia; Abnormal EKG; Lightheadedness; Chest discomfort; Palpitations; Primary hypertension; Stenosis of carotid artery, unspecified laterality; Mixed hyperlipidemia; Stage 3a chronic kidney disease (Multi); Gastroesophageal reflux disease without esophagitis; At high risk for falls; Uses roller walker; Severe obesity (BMI >= 40) (Multi); Never smoked cigarettes 07/15/2024 Travel 07/03/2024 Scanned Document [facility] [address] [place] [address] Scanning, Generic Provider from Last 3 Months Family History Medical History Relation Name Comments Brain Aneurysm Brother Aortic aneurysm Father Heart failure Mother Heart failure Sister Relation Name Status Comments Brother Father Mother Sister Social History Tobacco Use Types Packs/Day Years Used Date Smoking Tobacco: Never Smokeless Tobacco: Never Tobacco Cessation:Counseling Given: Not Answered Comments Unknown Sex and Gender Information Value [...] No / Unsure 09/19/2024 11:23 AM EDT Last Filed Vital Signs Vital Sign Reading Time Taken Comments Blood Pressure 124/86 09/18/2024 11:00 AM EDT Pulse 67 09/18/2024 10:44 AM EDT Temperature - - Respiratory Rate - - Oxygen Saturation - - Inhaled Oxygen Concentration - - Weight 122 kg (269 lb) 09/18/2024 11:00 AM EDT Height 162.6 cm (5' 4 ) 09/18/2024 11:00 AM EDT Body Mass Index 46.17 09/18/2024 11:00 AM EDT Plan of Treatment Upcoming Encounters Date Type Department Care Team (Late st Contact Info) Description 2024 2:15 PM EDT Office Visit [facility] 7[address] [facility] 250 [place] [address] Rc Kern MD 917 [facility] 130 [place] [address] Health Maintenance Due Date Last Done Comments Diabetes Screening 1963 Hepatitis C Screening 1963 CKD: Urine Protein Screening 1965 DTaP/Tdap/Td Vaccines (1 - Tdap) 1968 Creatinine Level 01/29/2021 01/30/2020, 01/20/2020 Potassium Level 01/29/2021 01/30/2020, 01/20/2020 RSV High Risk: (Elderly (60+) or Population) (1 - 1-dose 75+ series) 2021 COVID-19 Vaccine (3 - season) 2023 06/09/2023, 03/31/2022 Medicare Annual Wellness Visit (AWV) 07/06/2024 07/06/2023, 06/29/2022, 10/14/2020, Additional history exists Echocardiogram 09/18/2025 09/18/2024 Bone Density Scan 07/26/2026 07/26/2024, , 10/21/2020, Additional history exists Lipid Panel 07/26/2029 07/26/2024 Colonoscopy Discontinued 10/31/2012 Colorectal Cancer Screening Discontinued Pneumococcal Vaccine Completed 02/07/2015, 12/12/19 14 Zoster Vaccines Completed 09/26/2019, 05/01, 01/17/2012 Influenza Vaccine Completed 03/05/2024, , 03/23/2022, Additional history exists CT Colonography Discontinued FIT-DNA (Cologuard) Discontinued FIT Discontinued HIB Vaccines Aged Out No longer eligi ble based on patient's age to complete this topic HPV Vaccines Aged Out No longer eligi ble based on patient's age to complete this topic Hepatitis A Vaccines Aged Out No long er eligible based on patient's age to complete this topic Hepatitis B Vaccines Aged Out No long er eligible based on patient's age to complete this topic IPV Vaccines Aged Out No longer eligi ble based on patient's age to complete this topic Meningococcal Vaccine Aged Out No coty silver eligible based on patient's age to complete this topic Rotavirus Vaccines Aged Out No longer eligible based on patient's age to complete this topic Sigmoidoscopy Discontinued Medical Devices Implanted Type Area Gun Perforator Loader Device Identifier Shelf Expiration Date Model / Serial / Lot Screw, Low Profile Hex, 6.5 X 15 Mm Case [id number] Implanted:Qty: 1 on 01/29/2020 by Micah Bird MD Implant Right: Hip [employer] 06/30/2023 [id number] / / 5MM Description:Converted from [facility]. Please see archived information for full log information. Screw, Low Profile Hex, 6.5 X 25 Mm Case [id number] Implanted:Qty: 1 on 01/29/2020 by Micah Bird MD Implant Right: Hip HELENA NORCAT 06/01/2024 [id number] / / [id number] Description:Converted from [facility]. Please see archived information for full log information. Head, Femur V40 36mm +2.5mm Biolox Delta Case [id number] Implanted:Qty: 1 on 01/29/2020 by Micah Bird MD Joint Right: Hip [employer] 11/29/2024 [id number] / / [id number] Description:Converted from [facility]. Please see archived information for full log information. Stem, Femur 132d Sz 5 Accolade Ii Case [id number] Implanted:Qty: 1 on 01/29/2020 by Micah Bird MD Joint Right: Hip [employer] 09/29/2024 [id number] / / [id number] Description:Converted from [facility]. Please see archived information for full log information. Shell, Trident Ii, Clusterhole, Shelton 52e Case [id number] Implanted:Qty: 1 on 01/29/2020 by Micah Bird MD Joint Right: Hip [employer] 06/30/2023 [id number] / / [id number] Description:Converted from [facility]. Please see archived information for full log information. Liners, Poly 36 X 10 D Trid Crossfire E Case [id number] Implanted:Qty: 1 on 01/29/2020 by Micah Bird MD Joint Right: Hip [employer] 10/30/2023 [id number] / / [id number] Description:Converted from [facility]. Please see archived information for full log information. Procedures Procedure Name Priority Date/Time Associated Diagnosis Comments STRESS TEST, REGADENOSON W MYOCARDIAL PERFUSION SPECT (MULTI STUDY) Routine 09/19/2024 12:50 PM EDT Lightheadedness Chest discomfort Palpitations Mixed hyperlipidemia TRANSTHORACIC ECHO (TTE) COMPLETE Routine 09/18/2024 11:39 AM EDT Paroxysmal supraventricular tachycardia Abnormal EKG Palpitations ECG 12-LEAD Routine 07/15/2024 11:15 AM EDT Encounter to establish care with new doctor BASIC METABOLIC PANEL Routine 01/30/2020 5:25 AM EDT from Last 3 Months or Most Recently Relevant to Health Maintenance Results * STRESS TEST, REGADENOSON W MYOCARDIAL [...] David Castle 09/19/2024 3:00 PM Dictation workstation: [id number] Narrative 09/19/2024 3:00 PM EDT Interpreted By: David Castle and Jett Inman STUDY: MYOCARDIAL PERFUSION STRESS TEST WITH LEXISCAN Performing facility: [facility], [address] [place] [address], [address], [address] Provider: Rc Kern MD, FACC PCP: [...] Denies smoking. COMPARISON: No comparison. ACCESSION NUMBER(S): [id number] ORDERING CLINICIAN: RC KERN TECHNIQUE: TWO DAY [...] PERFUSION STRESS TEST WITH LEXISCAN Performing facility: [facility], [address] [place] [address], [address], [address] Provider: Rc Kern MD, FACC PCP: [...] Denies smoking. COMPARISON: No comparison. ACCESSION NUMBER(S): [id number] ORDERING CLINICIAN: RC KERN TECHNIQUE: TWO DAY [...] David Castle 09/19/2024 3:00 PM Dictation workstation: [id number] us Rc Kern MD CV STRESS PROCEDURES Final Resul t * TRANSTHORACIC ECHO (TTE) COMPLETE (09/18/2024 11:39 [...] Narrative SYNGO - 09/18/2024 6:10 PM EDT [address], [address], [place] [address] TRANSTHORACIC ECHOCARDIOGRAM REPORT Patient Name: USHA WALKER Reading Physician: [id number] David Castle MD, [facility] Study Date: 09/18/2024 Ordering Provider: [id number] RC KERN MRN/PID: [id number] Fellow: Nurse: Date of /Age: 7 1945 Senior Qa Tester: Viry ely RDCS, RVT Gender Assigned at F Additional Staff: : Height: 162.56 cm Admit Date: Weight: 122.02 kg Admission Status: Outpatient BSA / BMI: 2.22 m2 / 46.17 Department Location: [facility] kg/m2 [place] Blood Pressure: 124 /86 mmHg Study Type: TRANSTHORACIC ECHO (TTE) COMPLETE Diagnosis/ICD: Supraventricular tachycardia-I47.1; Abnormal electrocardiogram [ECG] [EKG]-R94.31; Palpitations-R00.2 Indication: Edema, HTN, Hyperlipidemia, Carotid Stenosis, CARO, CKD-Stage III, Morbid Obesity CPT Codes: Echo Complete w Full Doppler-[id number] Study Detail: The following Echo studies were [...] (0.6-0.9m/s) AORTA: Asc Ao Diam 2.66 cm [id number] David Castle MD, [facility] Electronically signed on 09/18/2024 at 6:10:05 PM Final Procedure Note David Castle MD - 09/18/2024 [facility] [address] [place] [address], [address], [place] [address] TRANSTHORACIC ECHOCARDIOGRAM REPORT Patient Name: USHA Deal Physician: [id number] Castle MD,[facility] Study Date: 09/18/2024 Ordering Provider: [id number] KERN MRN/PID: [id number] Fellow: Nurse: Date of /Age: 7 1945 / 78 Senior Qa Tester: David ely RDCS, RVT Gender Assigned at F Additional Staff: : Height: 162.56 cm Admit Date: Weight: 122.02 kg Admission Status: Outpatient BSA / BMI: 2.22 m2 / 46.17 [facility] [place] Blood Pressure: 124 /86 mmHg Study Type: TRANSTHORACIC ECHO (TTE) COMPLETE Diagnosis/ICD: Supraventricular tachycardia-I47.1; Abnormalelectrocardiogram [ECG] [EKG]-R94.31; Palpitations-R00.2 Indication: Edema, HTN, Hyperlipidemia, Carotid Stenosis, CARO,CKD-Stage III, Morbid Obesity CPT Codes: Echo Complete w Full Doppler-00004 Study Detail: The following Echo studies were [...] (0.6-0.9m/s) AORTA: Asc Ao Diam 2.66 cm [id number] David Castle MD, FACC Electronically signed on 09/18/2024 at 6:10:05 PM Final Rc Kern MD CV ECHO PROCEDURES Final Result Performing Organization Address City/[facility] Co de Phone Number SYNGO * ECG 12 Lead (07/15/2024 11:15 AM EDT) Narrative [facility] - 07/15/2024 7:38 PM EDT Normal sinus rhythm 93 bpm voltage criteria for left ventricular hypertrophy abnormal R wave progression, 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 Compared to EKG from December 2019, left axis deviation loss of lateral R waves were noted in December 2019. Rc Kern MD ECG ORDERABLES Edited Result - Final Performing Organization Address [facility] de Phone Number CPA * (ABNORMAL) Basic Metabolic Panel (01/30/2020 5:25 AM EDT) Glucose 128(H) 74 - 99 mg/dL [facility] Sodium 137 136 - 145 mmol/L [facility] Potassium 4.2 3.5 - 5.3 mmol/L [facility] Chloride 101 98 - 107 mmol/L [facility] Bicarbonate 32 21 - 32 mmol/L [facility] Anion Gap 8(L) 10 - 20 mmol/L [facility] Urea Nitrogen 14 6 - 23 mg/dL [facility] Creatinine 1.00 0.50 - 1.05 mg/dL [facility] GLOMERULAR FILTRATION RATE-NON 54(A) >60 mL/min/1.7 3m2 [facility] GLOMERULAR FILTRATION RATE- 65 >60 mL/min/1.7 2 [facility] Comment: CALCULATIONS OF ESTIMATED GFR ARE PERFORMED USING THE MDRD STUDY EQUATION FOR THE IDMS-TRACEABLE CREATININE METHODS. CLIN CHEM 2007;53:766-72 Calcium 8.8 8.6 - 10.3 mg/dL [facility] 01/30/2020 5:25 AM EDT 01/30/2020 6:26 AM EDT us Micah Bird MD LAB BLOOD ORDERABLES Final Res ult [facility] from Last 3 Months or Most Recently Relevant to Health Maintenance Insurance GENERIC COMMERCIAL MEDICARE PART A AND B GENERIC COMMERCIAL [place] [id number] MEDICARE PART A AND B Care Teams Manager Human Resources Relationship Specialty Start Date End Date Roc Steele MD 112 [facility] 110 [place] [address] PCP - General 10/04/22
--- OUTSIDE RECORDS SUMMARY | 2024-10-01 12:37 | XMS_ITS | Encounter Summary ---
Author Organization [facility] Address [address] [place] [address] Phone Care Team Providers Care Wood Filler Name Role Phone Roc Steele MD Primary Care Provider [phone] Encounter Details Date Type Department Care Team (Late st Contact Info) Description 09/19/2024 Telephone [facility] [address] [phone] Hina Bangura RN Social History Tobacco Use Types Packs/Day Years [...] AM EDT documented as of this encounter Miscellaneous Notes * Telephone Encounter - Hina Bangura RN - 09/19/2024 9:21 AM EDT Result Communication Resulted Orders Transthoracic Echo Complete Result Value Ref Range AV mn grad 7 mmHg AV pk twan 1.81 m/s LV Biplane EF 36 % LVOT diam 2.27 cm MV E/A ratio 0.79 MV avg E/e' ratio 26.81 LA vol index A/L 44.1 ml/m2 LV EF 63 % RV free wall pk S' 15.98 cm/s LVIDd 4.66 cm Aortic Valve Area by Continuity of Peak Velocity 2.65 cm2 AV pk grad 13 mmHg Aortic Valve Area by Continuity of VTI 1.93 cm2 LV A4C EF 42.7 Narrative [facility] [address] [facility], [address], [place] [id number] TRANSTHORACIC ECHOCARDIOGRAM REPORT Patient Name: USHA Mahnaz Deal Physician: [id number] David Castle MD, [facility] Study Date: 09/18/2024 Ordering Provider: [id number] RC KERN MRN/PID: [id number] Fellow: Nurse: Date of /Age: 7 1945 / 78 Security System Installer: Viry ely RDCS, RVT Gender Assigned at F Additional Staff: : Height: 162.56 cm Admit Date: Weight: 122.02 kg Admission Status: Outpatient BSA / BMI: 2.22 m2 / 46.17 Department Location: [facility] kg/m2 [place] Blood Pressure: 124 /86 mmHg Study Type: TRANSTHORACIC ECHO (TTE) COMPLETE Diagnosis/ICD: Supraventricular tachycardia-I47.1; Abnormal electrocardiogram [ECG] [EKG]-R94.31; Palpitations-R00.2 Indication: Edema, HTN, Hyperlipidemia, Carotid Stenosis, CARO, CKD-Stage III, Morbid Obesity CPT Codes: Echo Complete w Full Doppler-[id number] Study Detail: The following Echo studies were [...] normal. There is no indication of pulmonic valveregurgitation. Pericardium: No pericardial effusion noted. Aorta: The [...] (0.6-0.9m/s) AORTA: Asc Ao Diam 2.66 cm [id number] David Castle MD, FACC Electronically signed on 09/18/2024 at 6:10:05 PM Final 9:21 AM Results were successfully communicated with the patient and they acknowledged their understanding. * Telephone Encounter - Hina Bangura RN - 09/19/2024 9:21 AM EDT ----- Message from Rc Kern sent at 09/18/2024 6:50 PM EDT ----- Please notify patient that her echocardiogram shows normal heart pump function, and a little leakage in couple of valves. We can discuss further at next visit ----- Message ----- From: Interface, Syngo - Cardiology Results In Sent: 09/18/2024 6:10 PM EDT To: Rc Kern MD documented in this encounter Plan of Treatment Upcoming Encounters Date Type Department Care Team (Late st Contact Info) Description 2024 2:15 PM EDT Office Visit [facility] 703 [facility] 250 [place] [address] Rc Kern MD 917 [facility] 130 [place] [address] documented as of this encounter Visit Diagnoses Not on filedocumented in this encounter Additional Health Concerns Assessment Noted Time A fall risk assessment has been complete d for the patient 07/15/2024 11:21 AM EDT documented as of this encounter Care Teams Wood Filler Relationship Specialty Start Date End Date Roc Steele MD 112 [facility] 110 [place] [address] PCP - General 10/04/22 documented as of this encounter
--- OUTSIDE RECORDS SUMMARY | 2024-10-01 12:37 | XMS_ITS | Clinical Summary ---
Author Organization [facility] Address [address] [place] [address] Care Team Providers Care Label Printer Name Role Phone Roc Steele MD Primary Care Provider [phone] Roc Steele MD Unavailable [phone] Luis Felipe Dugan DO Unavailable [phone] Gladis Laird LPN Unavailable Unavailable Allergies Active Allergy Reactions Criticality Noted Date Comments Ciprofloxacin 09/30/2022 Other Reaction(s): Unknown Clarithromycin 09/30/2022 Other Reaction(s): Unknown Moxifloxacin Anaphylaxis High 09/30/2022 Other Reaction(s): Tongue Swelling ; Trouble Breathing Sulfanilamide 09/30/2022 Other Reaction(s): Unkown Medications Multiple Vitamin (Multi Vitamin) tablet 1 (one) time each day at the same time. Active Calcium Carb-Cholecalcife rol 600-20 MG-MCG chewable tablet calcium carb 600 mg(1,500 mg)-vit D3 400 unit-mineral s chewable tablet Take by oral route. Active gabapentin (Neurontin) 300 MG capsuleIndication s:Acute low back pain without sciatica, unspecified back pain laterality TAKE 1 CAPSULE BY MOUTH TWICE DAILY 200 capsule 3 08/08/19 24 Active simvastatin (Zocor) 10 MG tabletIndications :Hyperlipidemia, unspecified hyperlipidemia type (CMS/HCC) TAKE 1 TABLET BY MOUTH ONCE DAILY 100 tablet 3 09/13/19 24 Active meloxicam (Mobic) 15 MG tabletIndications :Primary osteoarthritis involving multiple joints TAKE 1 TABLET BY MOUTH ONCE DAILY 100 tablet 3 09/13/19 24 Active nortriptyline (Pamelor) 10 MG capsuleIndication s:Primary insomnia,Anxiety TAKE 3 CAPSULES BY MOUTH AT BEDTIME ONCE DAILY 270 capsule 3 10/26/19 24 Active ALPRAZolam (Xanax) 0.25 MG tabletIndications :Anxiety Take 1 tablet (0.25 mg) by mouth 2 (two) times a day as needed for anxiety 60 tablet 11/30/19 24 Active tiZANidine (Zanaflex) 4 MG tabletIndications :Primary insomnia TAKE 1 TABLET BY MOUTH EVERY 8 HOURS NEEDED 270 tablet 04/16/20 24 Active metoprolol succinate XL (Toprol-XL) 50 MG 24 hr tabletIndications :Benign essential hypertension (CMS/HCC) Take 1 tablet (50 mg) by mouth in the morning and 1 tablet (50 mg) before bedtime. 90 tablet 3 05/22/19 25 Active furosemide (Lasix) 20 MG tabletIndications :Cardiomegaly,Chr onic congestive heart failure, unspecified heart failure type (CMS/HCC) Take 1 tablet (20 mg) by mouth Daily 90 tablet 3 07/19/19 25 026 Active albuterol HFA (Ventolin HFA) 90 mcg/act inhalerIndication s:SOB (shortness of breath),Chronic cough Inhale 2 puffs every 4 (four) hours if needed for wheezing or shortness of breath (cough) 54 g 3 08/02/19 25 026 Active fexofenadine (Radha) 180 MG tabletIndications :Seasonal allergic rhinitis, unspecified trigger Take 1 tablet (180 mg) by mouth Daily as needed (alleriges) 90 tablet 3 08/02/19 25 026 Active denosumab (Prolia) 60 MG/ML solution prefilled syringeIndication s:Age-related osteoporosis without current pathological fracture (CMS/HCC) Inject 1 mL (60 mg) under the skin 1 (one) time for 1 dose 1 mL 08/02/19 25 Active pantoprazole (ProtoNix) 40 MG EC tabletIndications :Gastroesophageal reflux disease with esophagitis without hemorrhage TAKE 1 TABLET BY MOUTH ONCE DAILY 90 tablet 3 09/12/19 25 Active zolpidem (Ambien) 10 MG tabletIndications :Primary insomnia TAKE 1 TABLET BY MOUTH AT BEDTIME 90 tablet 09/12/19 25 Active pantoprazole (ProtoNix) 40 MG EC tabletIndications :Gastroesophageal reflux disease with esophagitis without hemorrhage TAKE 1 TABLET BY MOUTH ONCE DAILY 100 tablet 3 08/08/19 24 025 Discontinued zolpidem (Ambien) 10 MG tabletIndications :Primary insomnia Take 1 tablet (10 mg) by mouth at bedtime 90 each 07/04/19 25 025 Discontinued Active Problems Problem Noted Date Diagnosed Date Toe pain, right 06/15/2023 Allergic rhinitis 09/30/2022 Anxiety 09/30/2022 Benign essential hypertension 09/30/2022 Breast hematoma 09/30/2022 Cardiomegaly 09/30/2022 Chronic cough 09/30/2022 Decreased estrogen level 09/30/2022 Difficulty walking 09/30/2022 Diverticulosis of colon 09/30/2022 Edema 09/30/2022 Presence of other bone and tendon implants 09/30 Gastroesophageal reflux disease 09/30/2022 Hyperlipidemia 09/30/2022 IGT (impaired glucose tolerance) 09/30/2022 Insomnia 09/30/2022 Exudative age-related macula r degeneration of left eye with active choroidal neovascularization 09/30/2022 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 09/30/2022 Internal derangement of right shoulder Loss of smell 09/30/2022 Loss of taste 09/30/2022 Low back pain 09/30/2022 Lumbosacral spondylosis without myelopathy 09/30 Morbid obesity due to excess calories 09/30/2022 Obstructive sleep apnea 09/30/2022 Occlusion of carotid artery without cerebral inf arction 09/30/2022 Degenerative joint disease involving multiple arelis ints 09/30/2022 Osteoarthrosis 09/30/2022 Osteopenia 09/30/2022 Paroxysmal supraventricular tachycardia 10/01/19 23 Primary osteoarthritis of right hip 09/30/2022 Recurrent falls 09/30/2022 Vitamin D deficiency 09/30/2022 Encounters Date Type Department Care Team Description 10/01/2024 Abstract [facility] [address] [facility] [address] [place] [address] Roc Steele MD 09/18/2024 Abstract [facility] [address] [facility] [address] [place] [id number] Roc Steele MD 09/10/2024 Refill [facility] [address] [facility] [address] [place] [address] Aarti Castillo, DEISY Primary insomnia 09/10/2024 Refill [facility] [address] [facility] [address] [place] [address] Roc Steele MD Gastroesophageal reflux disease with esophagitis without hemorrhage 08/28/2024 Patient Outreach [facility] POPULATION [facility] [address] [place] [address] Gladis Laird LPN 08/20/2024 Abstract [facility] [address] [facility] [address] [place] [address] Roc Steele MD 08/20/2024 Abstract [facility] [address] [facility] [address] [place] [address] Roc Steele MD 08/19/2024 11:15 AM EDT Office Visit [facility] [address] [facility] [address] [place] [address] Roc Steele MD Age-related osteoporosis without current pathological fracture (CMS/HCC) (Primary Dx); Osteopenia of both hips; Chronic cough 08/19/2024 Travel 08/19/2024 Abstract [facility] [address] [facility] [address] [place] [address] Roc Steele MD 08/07/2024 Abstract [facility] [address] [facility] [address] [place] [address] Roc Steele MD 08/01/2024 2:30 PM EDT Procedure Visit [facility] [address] [place] [address] [place] [address] Alex Tam DPM Pain due to onychomycosis of toenails of both feet (Primary Dx) 08/01/2024 1:30 PM EDT Office Visit [facility] [address] [facility] [address] [place] [address] Aarti Castillo, IP TECHNOLOGY TRANSACTIONS ATTORNEY SOB (shortness of breath) (Primary Dx); Chronic cough; Lumbosacral spondylosis without myelopathy; Seasonal allergic rhinitis, unspecified trigger; Age-related osteoporosis without current pathological fracture ([facility]) 08/01/2024 Bamboo flowsheet [facility] [address] [facility] [address] [place] [address] Aarti Castillo NP 08/01/2024 Travel 07/30/2024 Telephone [facility] [address] [facility] [address] [place] [address] Raya Ko MA 07/26/2024 11:00 AM EDT Ancillary Procedure [facility] [address] [place] [address] [place] [phone] Osteopenia of both hips; Decreased estrogen level 07/26/2024 Travel 07/24/2024 Abstract [facility] [address] [facility] [address] [place] [address] Roc Steele MD 07/23/2024 Abstract [facility] [address] [facility] [address] [place] [address] Roc Steele MD 07/23/2024 Abstract [facility] [address] [facility] [address] [place] [address] Roc Steele MD 07/19/2024 Telephone [facility] [address] [facility] [address] [place] [address] Sushila Nieves PA 07/18/2024 Clinisync Result Encounter [facility] External Department Unsolicited Roc Steele MD 07/17/2024 Clinisync Result Encounter [facility]OM[facility] External Department Unsolicited Roc Steele MD 07/15/2024 Telephone [facility] [address] [facility] [address] [place] [address] Roc Steele MD 07/11/2024 1:00 PM EDT Office Visit [facility] [address] [facility] [address] [place] [address] Aarti Castillo NP Insomnia, unspecified type (Primary Dx); Obstructive sleep apnea; Chronic cough; Benign essential hypertension (CMS/HCC) ; Cardiomegaly; Exudative age-related macular degeneration of left eye with active choroidal neovascularization (CMS/HCC); 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, unspecified laterality; Paroxysmal supraventricular tachycardia (CMS/HCC) ; Gastroesophageal reflux disease with esophagitis without hemorrhage; Lumbosacral spondylosis without myelopathy; Osteoarthritis of multiple joints, unspecified osteoarthritis type; Other secondary osteoarthritis of multiple sites; Osteopenia of both hips; Primary osteoarthritis of right hip; IGT (impaired glucose tolerance); Morbid obesity due to excess calories (CMS/HCC); Vitamin D deficiency; Anxiety; Decreased estrogen level; Difficulty walking; Localized edema; Hyperlipidemia, unspecified hyperlipidemia type (CMS/HCC); 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; Acute low back pain without sciatica, unspecified back pain laterality; Recurrent falls; Medicare annual wellness visit, subsequent; Routine general medical examination at health care facility; Chronic congestive heart failure, unspecified heart failure type (CMS/HCC) 07/11/2024 Abstract [facility] [address] [address] Roc Steele MD 07/11/2024 Travel 07/11/2024 Abstract [facility] [address] [place] [address] Roc Steele MD 07/05/2024 11:15 AM EST Ancillary Procedure [facility] [address] [place] [address] [place] [id number] Pain of right hip; Fall, initial encounter 07/05/2024 Travel 07/04/2024 Telephone [facility] [address] [place] [address] Aarti Castillo NP 07/03/2024 11:30 AM EST Office Visit [facility] [address] [place] [address] Aarti Castillo NP Paroxysmal supraventricular tachycardia ([facility]/HCC) (Primary Dx); Primary insomnia; Acute congestive heart failure, unspecified heart failure type (CMS/HCC); Stage 3b chronic kidney disease (HCC) ([facility]); Weakness; Other fatigue; Pain of right hip; Fall, initial encounter 07/03/2024 Bamboo flowsheet [facility] [address] [place] [address] [place] [address] Aarti Castillo NP 07/03/2024 Travel 07/02/2024 Abstract [facility] [address] [place] [address] [place] [address] Roc Steele MD 07/01/2024 Patient Outreach [facility] POPULATION [facility] [address] [place] [address] Raya Holt, CARMEN from Last 3 Months Immunizations Immunization Administration Dates Next Due Influenza, High Dose Seasona l, Preservative Free 01/31/2018,01/25/2017 Influenza, High-dose Seasona l, Quadrivalent, Preservative Free 03/05/2024,03/01/2023,03/23/2022 Influenza, Seasonal, Quadriv alent, Adjuvanted 01/28/2021 Influenza, injectable, quadrivalent 02/02/2016 Influenza, injectable, quadr ivalent, preservative free 01/30/2020 Influenza, seasonal, intrade rmal, preservative free 01/30/2015,02/07/2014 Moderna Bivalent Booster Vaccination 03/31/2022 Pneumococcal Conjugate PCV 13 02/07/2015 Pneumococcal Polysaccharide PPSV23 12/11/2013 Zoster, Recombinant 09/26/2019,05/16/2019 Zoster, live 01/17/2012 Family History Medical History Relation Name Comments Aortic aneurysm Father Aortic aneurysm,HTN, heart disease Father Heart disease Father Hypertension Father HTN [Other], heart disease Mother Heart disease Mother Hypertension Mother Relation Name Status Comments Father Mother Social History Tobacco Use Types Packs/Day Years Used Date Smoking Tobacco: Never Smokeless Tobacco: Never Tobacco Cessation:Counseling Given: Yes Alcohol Use Standard Drinks/Week Comments Never 0 [...] How often do you attend chur or evangelical services? Never 11/25/2022 Do you belong to any clubs o r organizations such as roman catholic groups, unions, fraternal or athletic groups, or [...] Recorded Patient Health Questionnaire-2 Score 0 08/19/2024 [facility] - Occupational [...] on file Sexual Orientation Not on file Last Filed Vital Signs Vital Sign Reading Time Taken Comments Blood Pressure 138/86 08/19/2024 11:24 AM EDT Pulse 89 08/19/2024 11:24 AM EDT Temperature - - Respiratory Rate 16 08/01/2024 2:45 PM EDT Oxygen Saturation 96% 08/19/2024 11:24 AM EDT Inhaled Oxygen Concentration - - Weight 122 kg (268 lb) 08/19/2024 11:24 AM EDT Height 157.5 cm (5' 2 ) 08/19/2024 11:24 AM EDT Body Mass Index 49.02 08/19/2024 11:24 AM EDT Plan of Treatment Upcoming Encounters Date Type Department Care Team (Late st Contact Info) Description 10/10/2024 3:00 PM EDT Procedure Visit [facility] [address] [facility] [place] [address] [place] [address] Alex Tam, DPM [address] [facility] [address] [place] [address] 10/30/2024 11:30 AM EDT Office Visit [facility] [address] [facility] [address] [place] [address] Aarti Castillo, IP TECHNOLOGY TRANSACTIONS ATTORNEY 112 [facility] [address] [place] [address] Health Maintenance Due Date Last Done Comments Colonoscopy Discontinued 10/31/2012 Colorectal Cancer Screening Discontinued Pneumococcal Vaccine: 65+ Years Completed 5, 12/11/2013 Influenza Vaccine Completed 03/05/2024, , 03/23/2022, Additional history exists CT Colonography Discontinued FIT-DNA Discontinued FIT Discontinued FOBT Discontinued Sigmoidoscopy Discontinued Procedures Procedure Name Priority Date/Time Associated Diagnosis Comments LIPID PANEL Routine 07/26/2024 11:32 AM EDT Hyperlipidemia, unspecified hyperlipidemia type ([facility]) Medicare annual wellness visit, subsequent DEXA BONE DENSITY Routine 07/26/2024 11: 24 AM EDT Osteopenia of both hips Decreased estrogen level MM TOMOSYNTHESIS SCREENING BI 07/18/2024 4:19 PM EDT NON VAS EXTREM US, EXTREMITY,NONVASCULAR , REAL TIME W/IMAGE DOCUMENTATION COMPLETE 07/17/2024 6:36 PM EDT POCT GLYCATED HEMOGLOBIN, TOTAL Routine 07/11/2024 1:36 PM EDT IGT (impaired glucose tolerance) XR HIP 2 OR 3 VW RIGHT Routine 07/05/2024 2:01 PM EST Pain of right hip Fall, initial encounter MAGNESIUM Routine 07/03/2024 11:51 AM EST Stage 3b chronic kidney disease (HCC) (CMS/HCC) Weakness Other fatigue COMPREHENSIVE METABOLIC PANEL Routine 07/03/2024 11:51 AM EST Stage 3b chronic kidney disease (HCC) (CMS/HCC) COLONOSCOPY Routine 10/31/2012 12:00 PM EDT from Last 3 Months or Most Recently Relevant to Health Maintenance Results * (ABNORMAL) Lipid panel (07/26/2024 11:32 AM EDT) CHOLESTEROL, TOTAL 153 <200 mg/dL [facility] HDL CHOLESTEROL 49(L) > OR = 50 mg/dL [facility] TRIGLYCERIDES 121 <150 mg/dL [facility] LDL-CHOLESTEROL 82 mg/dL (calc) [facility] Comment: Reference range: <100 Desirable range <100 mg/dL for primary prevention; <70 mg/dL for patients with CHD or diabetic patients with > or = 2 CHD risk factors. LDL-C is now calculated using the Mike-Raymundo calculation, which is a validated novel method providing better accuracy than the Friedewald equation in the estimation of LDL-C. Mike SS et al. MARGO. 2013;310(19): 4778-3266 (http://education.[employer]/faq/TCC545) CHOL/HDLC RATIO 3.1 <5.0 (calc) [facility] NON HDL CHOLESTEROL 104 <130 mg/dL (calc) [facility] Comment: For patients with diabetes plus 1 major ASCVD risk factor, treating to a non-HDL-C goal of <100 mg/dL (LDL-C of <70 mg/dL) is considered a therapeutic option. Blood Venous blood specimen / Unknown 07/26/2024 11:32 AM EDT 07/26/2024 11:34 AM EDT Narrative [facility] - 07/27/2024 6:32 AM EDT COLLECTION KIT GIVEN TO PATIENT. PATIENT ADVISED TO RETURN. Resulting Agency Comment Performing Organization Information Site ID: QPT Name: [facility] Address: [address] [place] [address], [address] [place] [id number] Director: Bryce Larsen MD Aarti Castillo NP LAB BLOOD ORDERABLES Final R esult [facility] * DEXA bone density (07/26/2024 11:24 AM EDT) Anatomical Region Laterality Modality Body Digital Radiogra phy 07/27/2024 12:2 3 PM EDT Impressions 07/27/2024 12:25 PM EDT Impression: Findings compatible with osteoporosis with high increased fracture risk. ELECTRONICALLY SIGNED BY: Juan Carlos Squires M.D. Narrative 07/27/2024 12:25 PM EDT Examination: DEXA BONE DENSITY Clinical History: Other primary ovarian failure Technique: Bone density study was performed. T score values for the lumbar spine, left femoral neck and left forearm were obtained. Comparison: None Findings: Value for the lumbar spine from L1-L4 is -0.4. Value for the left femoral neck is -1.0. Value for the left forearm is -3.7. Findings are compatible osteoporosis with high increased fracture risk. Procedure Note Juan Carlos Squires MD - 07/27/2024 Examination: DEXA BONE DENSITY Clinical History: Other primary ovarian failure Technique: Bone density study was performed. T score values for the lumbarspine, left femoral neck and left forearm were obtained. Comparison: None Findings: Value for the lumbar spine from L1-L4 is -0.4. Value for theleft femoral neck is -1.0. Value for the left forearm is -3.7. Findingsare compatible osteoporosis with high increased fracture risk. IMPRESSION: Impression: Findings compatible with osteoporosis with high increasedfracture risk. ELECTRONICALLY SIGNED BY: Juan Carlos Squires M.D. Aarti Castillo NP IMG DXA PROCEDURES Final Res ult * MM TOMOSYNTHESIS SCREENING BI (07/18/2024 4:19 PM EDT) Anatomical Region Laterality Modality Other 07/18/2024 4:19 PM EDT Narrative 07/18/2024 4:20 PM EDT [facility] [place] [id number] Mammography Report Signed Patient: USHA WALKER MR#: [id number] : 1945 Acct:[id number] Age/Sex: 78 / F ADM Date: 07/17/24 Loc: MAMMO Attending Dr: ROC STEELE Ordering Physician: ROC STEELE Results: Date of Service: 07/17/24 Follow Up: Procedure(s): MM tomosynthesis screening BI Accession Number(s): [id number] cc: ROC STEELE Patient Name: USHA WALKER MR#: [id number] : 1945 Exam Date: 07/17/2024 Ordering Doctor: DR ROC STEELE M.D. RADIOLOGY REPORT PROCEDURE: MM TOMOSYNTHESIS SCREENING BI COMPARISON: MG MAMM SCREEN 3D RON CAD, 06/06/2022. MG MAMM RON SCRN W CAD DIG, 12/03/2012. INDICATIONS: Screening Calculator Name NCI Breast Cancer Risk Assessment Tool 5 Year Breast Cancer Risk 1.10% Lifetime Breast Cancer Risk 2.20% Personal Breast Cancer No Personal Ovarian Cancer No Treatments None Family Cancers Aunt-paternal with breast cancer at age 60. LOCATION: [facility] BREAST COMPOSITION: There are scattered areas of fibroglandular density. FINDINGS: DIAGNOSTIC CATEGORY 1--NEGATIVE. LEFT BREAST: No significant suspicious finding. RIGHT BREAST: No significant suspicious finding. RECOMMENDATIONS: ROUTINE MAMMOGRAM AND CLINICAL EVALUATION IN 12 MONTHS. PLEASE NOTE: A NORMAL MAMMOGRAM DOES NOT EXCLUDE THE POSSIBILITY OF BREAST CANCER. A CLINICALLY SUSPICIOUS PALPABLE LUMP SHOULD BE BIOPSIED. Dictated by: Jayce De La Garza DO on 07/18/2024 at 16:15 Approved by: Jayce De La Garza DO on 07/18/2024 at 16:19 Dictated By: Jayce De La Garza M.D. Signed By: 07/18/24 1620 DD/ 1619 TD/TT: Senior Cost Accountant: Procedure Note Radiology, Radiologist, MD - 07/18/2024 [facility] [place] [id number] Mammography Report Signed Patient: USHA WALKER KMR#: [id number] : 7Acct:[id number] Age/Sex: 78 / FADM Date: 07/17/24 Loc: MAMMO Attending Dr: ROC STEELE Ordering Physician: ROC STEELEResults: Date of Service: 07/17/24Follow Up: Procedure(s): MM tomosynthesis screening BI Accession Number(s): [id number] cc: USAMAMARIKAROC Patient Name: USHA WALKER MR#: [id number] : 1945 Exam Date: 07/17/2024 Ordering Doctor: DR ROC STEELE M.D. RADIOLOGY REPORT PROCEDURE: MM TOMOSYNTHESIS SCREENING BI COMPARISON: MG MAMM SCREEN 3D RON CAD, 06/06/2022. MG MAMM RON SCRN WCAD DIG, 12/03/2012. INDICATIONS: Screening Calculator Name NCI Breast Cancer Risk Assessment Tool 5 Year Breast Cancer Risk 1.10% Lifetime Breast Cancer Risk 2.20% Personal Breast Cancer No Personal Ovarian Cancer No Treatments None Family Cancers Aunt-paternal with breast cancer at age 60. LOCATION: [facility] BREAST COMPOSITION: There are scattered areas of fibroglandulardensity. FINDINGS: DIAGNOSTIC CATEGORY 1--NEGATIVE. LEFT BREAST: No significant suspicious finding. RIGHT BREAST: No significant suspicious finding. RECOMMENDATIONS: ROUTINE MAMMOGRAM AND CLINICAL EVALUATION IN 12 MONTHS. PLEASE NOTE: A NORMAL MAMMOGRAM DOES NOT EXCLUDE THE POSSIBILITY OFBREAST CANCER. A CLINICALLY SUSPICIOUS PALPABLE LUMP SHOULD BE BIOPSIED. Dictated by: Jayce De La Garza DO on 07/18/2024 at 16:15 Approved by: Jayce De La Garza DO on 07/18/2024 at 16:19 Dictated By: Jayce De La Garza M.D. Signed By:07/18/24 1620 DD/ 1619 TD/TT: Senior Cost Accountant: us Roc Steele MD [facility] Final Result * NON VAS EXTREM US, EXTREMITY,NONVASCULAR, REAL TIME W/IMAGE DOCUMENTATION COMPLETE (07/17/2024 6:36PM EDT) Anatomical Region Laterality Modality Radiographic Gillian ging 07/17/2024 6:36 PM EDT Narrative 07/17/2024 6:39 PM EDT The [address] [address] Ultrasound Report Signed Patient: USHA WALKER MR#: [id number] : 1945 Acct:[id number] Age/Sex: 78 / F ADM Date: 07/17/24 Loc: MAMMO Attending Dr: ROC STEELE Ordering Physician: ROC STEELE Date of Service: 07/17/24 Procedure(s): US extremity nonvascular LT Accession Number(s): [id number] cc: ROC TSEELE [place] [id number] Patient Name: USHA WALKER MRN: [facility]:[id number] date: 1945 Sex: F Assigned Patient Location: MAMMO Current Patient Location: [facility] Accession/Order Number: [id number] Exam Date: 07/17/2024 18:35 Report Date: 07/17/2024 18:36 At the request of: ROC STEELE Procedure: US extremity nonvascular LT Left axillary ultrasound. Reason for exam: Palpable lump. COMPARISON: None. TECHNIQUE: Grayscale and color Doppler images of the left axilla was obtained. FINDINGS: Imaging of the left axilla demonstrates no suspicious mass, fluid collection or lymph node. US/US extremity nonvascular LT IMPRESSION: Unremarkable left axillary ultrasound. Impression dictated by: Jayce De La Garza Jr., D.O.07/17/2024 6:36 PM Dictation Location: [place] [address] Electronically authenticated by: [id number] Y Date: 07/17/2024 18:36 Dictated By: Jayce De La Garza M.D. Signed By: 07/17/241838 DD/ 35 TD/TT: Senior Cost Accountant: Procedure Note Radiology, Radiologist, MD - 07/17/[address] [address] Ultrasound Report Signed Patient: USHA WALKER KMR#: [id number] : 1945cct:[id number] Age/Sex: 78 / FADM Date: 07/17/24 Loc: MAMMO Attending Dr: ROC STEELE Ordering Physician: ROC STEELE Date of Service: 07/17/24 Procedure(s): US extremity nonvascular LT Accession Number(s): [id number] cc: ROC STEELE [place] [id number] Patient Name: USHA WALKER MRN: [facility]:[id number] date: 1945 Sex: F Assigned Patient Location: MAMMO [facility] Accession/Order Number: [id number] Exam Date: 07/17/2024 18:35 Report Date: 07/17/2024 18:36 At the request of: ROC STEELE Procedure: US extremity nonvascular LT Left axillary ultrasound. Reason for exam: Palpable lump. COMPARISON: None. TECHNIQUE: Grayscale and color Doppler images of the left axilla wasobtained. FINDINGS: Imaging of the left axilla demonstrates no suspicious mass,fluid collection or lymph node. US/US extremity nonvascular LT IMPRESSION: Unremarkable left axillary ultrasound. Impression dictated by: Jayce De La Garza Jr., D.O.07/17/2024 6:36 PM Dictation Location: [place] [address] Electronically authenticated by: [id number] Y Date: 8:36 Dictated By: Jayce De La Garza M.D. Signed By:07/17/241838 DD/ 35 TD/TT: Senior Cost Accountant: Roc Steele MD IMG XR PROCEDURES Final Result * POCT Glycated hemoglobin, total (07/11/2024 1:36 PM EDT) Hemoglobin A1C 6.1 Blood 07/11/2024 1:36 PM EDT Aarti Castillo IP TECHNOLOGY TRANSACTIONS ATTORNEY POINT OF CARE TEST ENTER/TATE T ORDERABLES Final Result * XR hip right 2 or 3 views (07/05/2024 2:01 PM EST) Anatomical Region Laterality Modality Lower Extremities, Hip Right Radiograp hic Imaging 07/05/2024 2:23 PM EST Narrative 07/05/2024 2:23 PM EST EXAM: XR HIP 2 OR 3 VW RIGHT REASON FOR STUDY: Right hip pain, recent fall COMPARISON: None FINDINGS: AP view of the pelvis and 2 views of the right hip The bony pelvic ring is grossly intact. There is an arthroplasty of the right hip with anatomic alignment. There is mild to moderate osteoarthritis of the left hip. No visible fracture. IMPRESSION: Unremarkable appearing arthroplasty of the right hip. Dictated on: 07/05/2024 12:22 PM This report has been electronically signed and approved by the interpreting Radiologist. Procedure Note Roc Dangelo MD - 07/05/2024 EXAM: XR HIP 2 OR 3 VW RIGHT REASON FOR STUDY: Right hip pain, recent fall COMPARISON: None FINDINGS: AP view of the pelvis and 2 views of the right hip The bony pelvic ring is grossly intact. 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 No visible fracture. IMPRESSION: Unremarkable appearing arthroplasty of the right hip. Dictated on: 07/05/2024 12:22 PM This report has been electronically signed and approved by theinterpreting Radiologist. Aarti Castillo IP TECHNOLOGY TRANSACTIONS ATTORNEY IMG XR PROCEDURES Final Resu lt * Magnesium (07/03/2024 11:51 AM EST) MAGNESIUM 2.0 1.5 - 2.5 mg/dL [facility] Blood Venous blood specimen / Unknown 07/03/2024 11:51 AM EST 07/03/2024 11:51 AM EST Narrative [facility] - 07/04/2024 4:20 AM EST FASTING:NO FASTING: NO Resulting Agency Comment Performing Organization Information Site ID: [id number] Name: [facility] Address: [address] [place] [address], [address] [place] [phone] Director: Bryce Larsen MD Aarti Castillo NP LAB BLOOD ORDERABLES Final R esult [facility] * (ABNORMAL) Comprehensive metabolic panel (07/03/2024 11:51 AM EST) Glucose 145(H) 65 - 139 mg/dL [facility] Comment: Non-fasting reference interval For someone without known diabetes, a glucose value >125 mg/dL indicates that they may have diabetes and this should be confirmed with a follow-up test. BUN 19 7 - 25 mg/dL [facility] Creatinine 1.11(H) 0.60 - 1.00 mg/dL [facility] EGFR 51(L) > OR = 60 mL/min/1.7 3m2 [facility] BUN/CREATININE RATIO 17 6 - 22 (calc) [facility] Sodium 138 135 - 146 mmol/L [facility] Potassium, Bld 4.2 3.5 - 5.3 mmol/L [facility] Chloride 104 98 - 110 mmol/L [facility] Carbon Dioxide 27 20 - 32 mmol/L [facility] Calcium 8.9 8.6 - 10.4 mg/dL [facility] PROTEIN, TOTAL 6.3 6.1 - 8.1 g/dL [facility] ALBUMIN 4.0 3.6 - 5.1 g/dL [facility] GLOBULIN 2.3 1.9 - 3.7 g/dL (calc) [facility] ALBUMIN/GLOBULIN RATIO 1.7 1.0 - 2.5 (calc) [facility] BILIRUBIN, TOTAL 0.6 0.2 - 1.2 mg/dL [facility] ALKALINE PHOSPHATASE 99 37 - 153 U/L [facility] AST 19 10 - 35 U/L [facility] ALT 8 6 - 29 U/L [facility] Blood Venous blood specimen / Unknown 07/03/2024 11:51 AM EST 07/03/2024 11:51 AM EST Narrative [facility] - 07/04/2024 4:20 AM EST FASTING:NO FASTING: NO Resulting Agency Comment Performing Organization Information Site ID: [id number] Name: [facility] Address: [address] [place] [address], [address] [place] [id number] Director: Bryce Larsen MD us Aarti Castillo NP LAB BLOOD ORDERABLES Final R esult [facility] * Colonoscopy (10/31/2012 12:00 PM EDT) Anatomical Region Laterality Modality Endoscopy 10/31/2012 12:0 0 PM EDT Narrative 10/31/2012 12:00 PM EDT PERFORMED AT [facility] LOCATION:[id number] DIVERTICULOSIS Procedure Note CONVERSION, GENERIC - 09/15/2022 PERFORMED AT [facility] LOCATION:[id number] DIVERTICULOSIS Roc Steele MD ENDOSCOPY PROCEDURE ORDERABLES Final Result from Last 3 Months or Most Recently Relevant to Health Maintenance Insurance [facility] MEDICARE Care Teams Label Printer Relationship Specialty Start Date End Date Roc Steele MD [address] [facility] 110 [place] [address] PCP - General Internal Medicine 09/28/22 Roc Steele MD [address] [facility] [address] [place] [address] PCP - ACO Reach 08/30/23 Luis Felipe Dugan DO [address] [address] Referring Physician Neurology 03/07/24 Gladis Laird LPN 07/19/24
--- OUTSIDE RECORDS SUMMARY | 2024-10-01 12:37 | XMS_ITS | Encounter Summary ---
Author Organization [facility] Address [address] [place] [address] Care Team Providers Care Counselor Marriage And Family Name Role Phone Roc Steele MD Primary Care Provider [phone] Roc Steele MD Unavailable [phone] Luis Felipe Dugan DO Unavailable [phone] Gladis Laird LPN Unavailable Unavailable Encounter Details Date Type Department Care Team (Late st Contact Info) Description 09/18/2024 Abstract [facility] 112 [facility] 110 [place] [address] Roc Steele MD 112 [facility] 110 [place], [place] [id number] Social History Tobacco Use Types Packs/Day Years [...] How often do you attend chur or scientologist services? Never 11/25/2022 Do you belong to any clubs o r organizations such as judaism groups, unions, fraternal or athletic groups, or [...] Recorded Patient Health Questionnaire-2 Score 0 08/19/2024 [facility] of Occupat ional Health - Occupational [...] Upcoming Encounters Date Type Department Care Team ([facility] st Contact Info) Description 10/10/2024 3:00 PM EDT Procedure Visit [facility] 112 [facility] 120 [place] [address] Alex Tam DPM 3006 [facility] 5 [place] [address] 10/30/2024 11:30 AM EDT Office Visit [facility] 112 [facility] 110 [place] [phone] Aarti Castillo NP 112 [facility] 110 [place], [place] [address] documented as of this encounter Visit Diagnoses Not on filedocumented in this encounter Additional Health Concerns Assessment Noted Time PHQ-9 Depression Total Score: 0 07/06/19 24 3:00 PM EST documented as of this encounter Care Teams Counselor Marriage And Family Relationship Specialty Start Date End Date Roc Steele MD [address] [facility] 110 [place] [address] PCP - General Internal Medicine 09/28/22 Roc Steele MD [address] [facility] 110 [place] [address] PCP - ACO Reach 08/30/23 Luis Felipe Dugan DO [address] [facility] 110 [place] [address] Referring Physician Neurology 03/07/24 Gladis Laird LPN 07/19/24 documented as of this encounter
--- OUTSIDE RECORDS SUMMARY | 2024-10-01 12:37 | XMS_ITS | Encounter Summary ---
Author Organization [facility] Address [address] [place] [address] Phone Care Team Providers Care Postdoctoral Research Fellow Name Role Phone Roc Steele MD Primary Care Provider [phone] Encounter Details Date Type Department Care Team (Latest Contact Info) Description 09/19/2024 Travel Social History Tobacco Use Types Packs/Day Years [...] Description 2024 2:15 PM EDT Office Visit [facility] 703 [facility] 250 [place] [address] Amber Hawley MD 917 [facility] 130 [place] [address] documented as of this encounter Visit Diagnoses Not on filedocumented in this encounter Additional Health Concerns Assessment Noted Time A fall risk assessment has been complete d for the patient 07/15/2024 11:21 AM EDT documented as of this encounter Care Teams Postdoctoral Research Fellow Relationship Specialty Start Date End Date Roc Steele MD 112 [facility] 110 [place] [address] PCP - General 10/04/22 documented as of this encounter
--- OUTSIDE RECORDS SUMMARY | 2024-10-01 12:37 | XMS_ITS | Encounter Summary ---
Author Organization [facility] Address [address] [place] [address] Phone Care Team Providers Care Entry Level Installation Technician Name Role Phone Roc Steele MD Primary Care Provider [phone] Encounter Details Date Type Department Care Team (Latest Contact Info) Description 09/18/2024 Travel Social History Tobacco Use Types Packs/Day [...] Description 2024 2:15 PM EDT Office Visit [facility] 703 [facility] 250 [place] [address] Amber Hawley MD 917 [facility] 130 [place] [address] documented as of this encounter Visit Diagnoses Not on filedocumented in this encounter Additional Health Concerns Assessment Noted Time A fall risk assessment has been complete d for the patient 07/15/2024 11:21 AM EDT documented as of this encounter Care Teams Entry Level Installation Technician Relationship Specialty Start Date End Date Roc Steele MD 112 [facility] 110 [place] [address] PCP - General 10/04/22 documented as of this encounter
--- OUTSIDE RECORDS SUMMARY | 2024-10-01 12:37 | XMS_ITS | Encounter Summary ---
Author Organization [facility] Address [address] [place] [address] Care Team Providers Care Radiological Technologist Name Role Phone Roc Steele MD Primary Care Provider [phone] Roc Steele MD Unavailable [phone] Luis Felipe Dugan DO Unavailable [phone] Gladis Laird LPN Unavailable Unavailable Encounter Details Date Type Department Care Team (Late st Contact Info) Description 10/01/2024 Abstract [facility] 112 [facility] 110 [place] [address] Roc Steele MD 112 [facility] 110 [place], [place] [id number] Social History Tobacco Use Types Packs/Day Years [...] How often do you attend chur or yarsanism services? Never 11/25/2022 Do you belong to [...] Recorded Patient Health Questionnaire-2 Score 0 08/19/2024 [facility] of Occupat ional [...] place to sleep or slept in a alf (including now)? No 11/25/2022 Comments Unknown Sex and Gender Information Value Date Recorded Sex Assigned at Not on file Legal Sex Female 7:20 PM EDT Gender Identity Not on file Sexual Orientation Not on file documented as of this encounter Plan of Treatment Upcoming Encounters Date Type Department Care Team ([facility] st Contact Info) Description 10/10/2024 3:00 PM EDT Procedure Visit [facility] 112 [facility] 120 [place] [address] Alex Tam DPM 3006 [facility] 5 [place] [address] 10/30/2024 11:30 AM EDT Office Visit [facility] 112 [facility] 110 [place] [address] Aarti Castlilo NP 112 [facility] 110 [place], [place] [address] documented as of this encounter Visit Diagnoses Not on filedocumented in this encounter Additional Health Concerns Assessment Noted Time PHQ-9 Depression Total Score: 0 07/06/19 24 3:00 PM EST documented as of this encounter Care Teams Radiological Technologist Relationship Specialty Start Date End Date Roc Steele MD [address] [facility] 110 [place] [address] PCP - General Internal Medicine 09/28/22 Roc Steele MD [address] [facility] 110 [place] [address] PCP - ACO Reach 08/30/23 Luis Felipe Dugan DO [address] [facility] 110 [place] [address] Referring Physician Neurology 03/07/24 Gladis Laird LPN 07/19/24 documented as of this encounter
--- OUTSIDE RECORDS SUMMARY | 2024-10-01 12:37 | XMS_ITS | Encounter Summary ---
Author Organization [facility] Address [address] [place] [address] Phone Care Team Providers Care Apple Press Operator Name Role Phone Roc Steele MD Primary Care Provider [phone] Reason for Visit * Reason Onset Date Comments Error (VOID this visit) 09/19/2024 Encounter Details Date Type Department Care Team ([facility] Contact Info) Description 09/19/2024 Telephone [facility] 703 [facility] 250 [place] [address] Hina Bangura RN Error (VOID this visit) Social History Tobacco Use Types Packs/Day Years [...] Department Care Team (Late Contact Info) Description 2024 2:15 PM EDT Office Visit [facility] 703 [facility] 250 [place] [address] Amber Hawley MD [address] [facility] 130 [place], [place] [address] documented as of this encounter Visit Diagnoses Not on filedocumented in this encounter Additional Health Concerns Assessment Noted Time A fall risk assessment has been complete d for the patient 07/15/2024 11:21 AM EDT documented as of this encounter Care Teams Apple Press Operator Relationship Specialty Start Date End Date Roc Steele MD 112 [place] [id number] PCP - General 10/04/22 documented as of this encounter
--- OUTSIDE RECORDS SUMMARY | 2024-10-01 12:37 | XMS_ITS | Encounter Summary ---
Author Organization [facility] Address [address] [place] [address] Care Team Providers Care Vessel Operator Name Role Phone Roc Steele MD Primary Care Provider [phone] Roc Steele MD Unavailable [phone] Luis Felipe Dugan DO Unavailable [phone] Raya Holt RN Unavailable [phone] Gladis Laird LPN Unavailable Unavailable Encounter Details Date Type Department Care Team (Late st Contact Info) Description 10/03/2023 Abstract [facility] 112 [facility] 110 [place] [address] Roc Steele MD 112 [facility] 110 [place] [address] Social History Tobacco Use Types [...] often do you attend chur ch or yazidism services? Never 11/25/2022 Do you belong to [...] Recorded Patient Health Questionnaire-2 Score 0 07/06/2023 [facility] of Occupat ional [facility] - Occupational Stress Questionnaire Answer Date Recorded [...] place to sleep or slept in a care home (including now)? No 11/25/2022 Comments Unknown Sex and Gender Information Value Date Recorded Sex Assigned at Not on file Legal Sex Female 7:20 PM EDT Gender Identity Not on file Sexual Orientation Not on file documented as of this encounter Plan of Treatment Upcoming Encounters Date Type Department Care Team ([facility] st Contact Info) Description 10/10/2024 3:00 PM EDT Procedure Visit [facility] 112 [facility] 120 [place] [address] Alex Tam DPM 3006 [facility] 5 [place] [address] 10/30/2024 11:30 AM EDT Office Visit [facility] 112 [facility] 110 [place] [address] aArti Castillo, SOLID CENTER WINDER 112 [facility] 110 [place] [address] documented as of this encounter Visit Diagnoses Not on filedocumented in this encounter Additional Health Concerns Assessment Noted Time PHQ-9 Depression Total Score: 0 07/06/19 24 3:00 PM EST documented as of this encounter Care Teams Vessel Operator Relationship Specialty Start Date End Date Roc Steele MD [address] [facility] 110 [place] [address] PCP - General Internal Medicine 09/28/22 Roc Steele MD [address] [facility] 110 [place] [address] PCP - ACO Reach 08/30/23 Luis Felipe Dugan DO [address] [facility] 110 [place] [address] Referring Physician Neurology 03/07/24 Raya Holt, RN Clinical Advocate Family Medicine 06/07/24 07/19/24 Gladis Laird LPN 07/19/24 documented as of this encounter
== END 2024-10-01 12:34 | disposition home or self-care (01) ==
LOC: MRI 12:33
PROVIDERS: PCP Internal Medicine; Visit Provider Anesthesiology
DX: M48.062 Spinal stenosis, lumbar region with neurogenic claudication (principal); M71.38 Other bursal cyst, other site; M51.369 Other intervertebral disc degeneration, lumbar region without mention of lumbar back pain or lower extremity pain
CPT/HCPCS: 72148

== ENCOUNTER 2024-10-03 14:51 | Outpatient (OUT) | payer MEDICARE, OTHER, SELFPAY ==
--- OUTSIDE RECORDS SUMMARY | 2024-09-18 10:16 | XMS_ITS | Encounter Summary ---
Author Organization [facility] Address [address] [place] [address] Phone Care Team Providers Care [employer] Operator Name Role Phone Roc Steele MD Primary Care Provider Reason for Visit * Cardiac Stress Testing (Routine) - Authorized Specialty Diagnoses / Procedures Referred By Aminah t Referred To Contact Radiology Diagnoses Lightheadedness Chest discomfort Palpitations Mixed hyperlipidemia Procedures Nuclear Stress Test CHG MYOCARDIAL SPECT MULTIPLE STUDIES Amber Hawley MD [address] [facility] [address] [place] [address] Phone: tel: fax: Referral ID Status Reason Start Date Expiration Date V isits Requested Visits Authorized [id number] Authorized 07/15/2024 07/15/2025 5 5 Encounter Details Date Type Department Care Team (Latest Contact Info) Description 09/18/2024 10:16 AM EDT - 09/18/2024 11:59 PM EDT Hospital Encounter [place] [id number] [facility] [address] [place] [address] Discharge Disposition: Home Social History [...] AM EDT documented as of this encounter Last Filed Vital Signs Vital Sign Reading Time Taken Comments Blood Pressure 122/78 09/18/2024 10:44 AM EDT Pulse 67 09/18/2024 10:44 AM EDT Temperature - - Respiratory Rate - - Oxygen Saturation - - Inhaled Oxygen Concentration - - Weight - - Height - - Body Mass Index - - documented in this encounter Medications at Time of Discharge ALPRAZolam (Xanax) 0.25 mg tablet Take 1 tablet (0.25 mg) by mouth as needed at bedtime for anxiety. HYDROcodone-acetamino phen ([place]) 5-325 mg tablet Take 1 tablet by [...] Description 2024 2:15 PM EDT Office Visit [facility] [address] [facility] [address] [place] [address] Amber Hawley MD [address] [facility] [address] [place], [place] [address] documented as of this encounter Procedures Procedure Name Priority Date/Time Associated Diagnosis Comments STRESS TEST, REGADENOSON W MYOCARDIAL PERFUSION SPECT (MULTI STUDY) Routine 09/19/2024 12:50 PM EDT Lightheadedness Chest discomfort Palpitations Mixed hyperlipidemia documented in this encounter Visit Diagnoses Not on filedocumented in this encounter Administered Medications Inactive Administered Medications - up to 3 most recent administrations Medication Order MAR Action Action Date Dose Rate Site regadenoson (Lexiscan) injection 0.4 mg 0.4 mg, intravenous, Once, On Mon09/18/24 at 1100, For 1 dose Given 09/18/2024 10:48 AM EDT 0.4 mg documented in this encounter Additional Health Concerns Assessment Noted Time A fall risk assessment has been complete d for the patient 07/15/2024 11:21 AM EDT documented as of this encounter Care Teams Flower Machine Operator Relationship Specialty Start Date End Date Roc Steele MD [address] [address] PCP - General 10/04/22 documented as of this encounter
--- OUTSIDE RECORDS SUMMARY | 2024-09-18 10:16 | XMS_ITS | Encounter Summary ---
Author Organization [facility] Address [address] [place] [address] Phone Care Team Providers Care Political Science Research Assistant Name Role Phone Roc Steele MD Primary Care Provider [phone] Reason for Visit * Cardiac Stress Testing (Routine) - Authorized Specialty Diagnoses / Procedures Referred By Aminah t Referred To Contact Radiology Diagnoses Lightheadedness Chest discomfort Palpitations Mixed hyperlipidemia Procedures Nuclear Stress Test CHG MYOCARDIAL SPECT MULTIPLE STUDIES Rc Kern MD 917 [facility] 130 [place] [address] Phone: tel: fax: Referral ID Status Reason Start Date Expiration Date V isits Requested Visits Authorized [id number] Authorized 07/15/2024 07/15/2025 5 5 Encounter Details Date Type Department Care Team (Latest Contact Info) Description 09/18/2024 10:16 AM EDT - 09/18/2024 11:59 PM EDT Hospital Encounter [place] [id number] [facility] [address] [place] [address] Discharge Disposition: Home Social History [...] needed at bedtime for anxiety. HYDROcodone-acetamino phen ([place]) 5-325 mg tablet Take 1 tablet by [...] Description 2024 2:15 PM EDT Office Visit [facility] 703 [facility] [address] [place] [address] Rc Kern MD 917 [facility] 130 [place] [address] documented as of this encounter [...] David Castle 09/19/2024 3:00 PM Dictation workstation: [id number] Narrative 09/19/2024 3:00 PM EDT Interpreted By: David Castle, and Jett Inman STUDY: MYOCARDIAL PERFUSION STRESS TEST WITH LEXISCAN Performing facility: [facility], [address] [place] [address], [address], [address] Provider: Rc Kern MD, FACC PCP: [...] Denies smoking. COMPARISON: No comparison. ACCESSION NUMBER(S): [id number] ORDERING CLINICIAN: RC KERN TECHNIQUE: TWO DAY [...] PERFUSION STRESS TEST WITH LEXISCAN Performing facility: [facility], [address] [place] [address], [address], [address] Provider: Rc Kern MD, FACC PCP: [...] Denies smoking. COMPARISON: No comparison. ACCESSION NUMBER(S): [id number] ORDERING CLINICIAN: RC KERN TECHNIQUE: TWO DAY [...] David Castle 09/19/2024 3:00 PM Dictation workstation: [id number] Rc Kern MD CV STRESS PROCEDURES Final Resul t documented in this encounter Visit Diagnoses Not on filedocumented in this encounter Additional Health Concerns Assessment Noted Time A fall risk assessment has been complete d for the patient 07/15/2024 11:21 AM EDT documented as of this encounter Care Teams Political Science Research Assistant Relationship Specialty Start Date End Date Roc Steele MD [address] [facility] 110 [place] [address] PCP - General 10/04/22 documented as of this encounter
--- OUTSIDE RECORDS SUMMARY | 2024-09-18 10:16 | XMS_ITS | Encounter Summary ---
Author Organization [facility] Address [address] [place] [address] Phone Care Team Providers Care Feather Separator Name Role Phone Roc Steele MD Primary Care Provider [phone] Reason for Referral * CV Imaging (Routine) - Authorized Specialty Diagnoses / Procedures Referred By Aminah beltran Referred To Contact Cardiology Diagnoses Paroxysmal supraventricular tachycardia Abnormal EKG Palpitations Procedures Transthoracic Echo Complete UT ECHO TTHRC R-T 2D W/WOM-MODE COMPL SPEC&COLR D Rc Kern MD [address] [place] [address] Phone: tel: fax: Referral ID Status Reason Start Date Expiration Date Visits Requested Visits Authorized [id number] Authorized Perform Procedure 07/15/2024 07/15/2025 1 1 Reason for Visit * CV Imaging (Routine) - Authorized Specialty Diagnoses / Procedures Referred By Aminah beltran Referred To Contact Cardiology Diagnoses Paroxysmal supraventricular tachycardia Abnormal EKG Palpitations Procedures Transthoracic Echo Complete UT ECHO TTHRC R-T 2D W/WOM-MODE COMPL SPEC&COLR D Rc Kern MD [address] [address] Phone: tel: fax: Referral ID Status Reason Start Date Expiration Date Visits Requested Visits Authorized [id number] Authorized Perform Procedure 07/15/2024 07/15/2025 1 1 Encounter Details Date Type Department Care Team (Latest Contact Info) Description 09/18/2024 10:16 AM EDT - 09/18/2024 11:59 PM EDT Hospital Encounter [facility] [address] [place] [address] [place] [address] Paroxysmal supraventricular tachycardia; Abnormal EKG; [...] needed at bedtime for anxiety. HYDROcodone-acetamino phen ([place]) 5-325 mg tablet Take 1 tablet by [...] Description 2024 2:15 PM EDT Office Visit [facility] 703 [facility] [address] [place] [address] Rc Kern MD 917 [facility] 130 [place], [place] [phone] documented as of this encounter Procedures Procedure [...] Narrative SYNGO - 09/18/2024 6:10 PM EDT [address], [address], [place] [address] TRANSTHORACIC ECHOCARDIOGRAM REPORT Patient Name: USHA WALKER Toyin Physician: [id number] David Castle MD, [facility] Study Date: 09/18/2024 Ordering Provider: [id number] RC KERN MRN/PID: [id number] Fellow: Nurse: Date of /Age: 7 1945 / 78 Protective Signal Superintendent: Viry ely RDCS, RVT Gender Assigned at F Additional Staff: : Height: 162.56 cm Admit Date: Weight: 122.02 kg Admission Status: Outpatient BSA / BMI: 2.22 m2 / 46.17 Department Location: [facility] kg/m2 [place] Blood Pressure: 124 /86 mmHg Study Type: TRANSTHORACIC ECHO (TTE) COMPLETE Diagnosis/ICD: Supraventricular tachycardia-I47.1; Abnormal electrocardiogram [ECG] [EKG]-R94.31; Palpitations-R00.2 Indication: Edema, HTN, Hyperlipidemia, Carotid Stenosis, CARO, CKD-Stage III, Morbid Obesity CPT Codes: Echo Complete w Full Doppler-[id number] Study Detail: The following Echo studies were [...] (0.6-0.9m/s) AORTA: Asc Ao Diam 2.66 cm [id number] David Castle MD, [facility] Electronically signed on 09/18/2024 at 6:10:05 PM Final Procedure Note David Castle MD - 09/18/2024 [facility] [address] [facility], [address], [place] [address] TRANSTHORACIC ECHOCARDIOGRAM REPORT Patient Name: USHA Mahnaz Deal Physician: [id number] Castle MD,[facility] Study Date: 09/18/2024 Ordering Provider: [id number] KERN MRN/PID: [id number] Fellow: Nurse: Date of /Age: 7 1945 Protective Signal Superintendent: David ely RDCS, RVT Gender Assigned at F Additional Staff: : Height: 162.56 cm Admit Date: Weight: 122.02 kg Admission Status: Outpatient BSA / BMI: 2.22 m2 / 46.17 [facility] [place] Blood Pressure: 124 /86 mmHg Study Type: TRANSTHORACIC ECHO (TTE) COMPLETE Diagnosis/ICD: Supraventricular tachycardia-I47.1; Abnormalelectrocardiogram [ECG] [EKG]-R94.31; Palpitations-R00.2 Indication: Edema, HTN, Hyperlipidemia, Carotid Stenosis, CARO,CKD-Stage III, Morbid Obesity CPT Codes: Echo Complete w Full Doppler-[id number] Study Detail: The following Echo studies were [...] (0.6-0.9m/s) AORTA: Asc Ao Diam 2.66 cm [id number] David Castle MD, [facility] Electronically signed on 09/18/2024 at 6:10:05 PM [...] documented as of this encounter Care Teams Feather Separator Relationship Specialty Start Date End Date Roc Steele MD 112 [facility] 110 [place] [address] PCP - General 10/04/22 documented as of this encounter
--- OUTSIDE RECORDS SUMMARY | 2024-09-19 11:24 | XMS_ITS | Encounter Summary ---
Author Organization [facility] Address [address] [place] [address] Phone Care Team Providers Care Ice Cream Dipper Name Role Phone Roc Steele MD Primary Care Provider [phone] Reason for Visit * Cardiac Stress Testing (Routine) - Authorized Specialty Diagnoses / Procedures Referred By Aminah t Referred To Contact Radiology Diagnoses Lightheadedness Chest discomfort Palpitations Mixed hyperlipidemia Procedures Nuclear Stress Test CHG MYOCARDIAL SPECT MULTIPLE STUDIES Rc Kern MD [address] [facility] [address] [place] [address] Phone: tel: fax: Referral ID Status Reason Start Date Expiration Date V isits Requested Visits Authorized [id number] Authorized 07/15/2024 07/15/2025 5 5 Encounter Details Date Type Department Care Team (Latest Contact Info) Description 09/19/2024 11:24 AM EDT - 09/19/2024 11:59 PM EDT Hospital Encounter [place] [id number] [facility] [address] [place] [address] Discharge Disposition: Home Social History [...] needed at bedtime for anxiety. HYDROcodone-acetamino phen ([place]) 5-325 mg tablet Take 1 tablet by [...] 2:15 PM EDT Office Visit [facility] 703 [facility] [address] [place] [address] Rc Kern MD 9[address] [facility] [address] [place] [address] documented as of this encounter [...] David Castle 09/19/2024 3:00 PM Dictation workstation: [id number] Narrative 09/19/2024 3:00 PM EDT Interpreted By: David Castle, and Jett Inman STUDY: MYOCARDIAL PERFUSION STRESS TEST WITH LEXISCAN Performing facility: [facility], [address] [place] [address], [address], [address] Provider: Rc Kern MD, FACC PCP: [...] Denies smoking. COMPARISON: No comparison. ACCESSION NUMBER(S): [id number] ORDERING CLINICIAN: RC KERN TECHNIQUE: TWO DAY [...] PERFUSION STRESS TEST WITH LEXISCAN Performing facility: [facility], [address] [place] [address], [address], [address] Provider: Rc Kern MD, FACC PCP: [...] Denies smoking. COMPARISON: No comparison. ACCESSION NUMBER(S): [id number] ORDERING CLINICIAN: RC KERN TECHNIQUE: TWO DAY [...] David Castle 09/19/2024 3:00 PM Dictation workstation: [id number] Rc Kern MD CV STRESS PROCEDURES Final Resul t documented in this encounter Visit Diagnoses Not on filedocumented in this encounter Additional Health Concerns Assessment Noted Time A fall risk assessment has been complete d for the patient 07/15/2024 11:21 AM EDT documented as of this encounter Care Teams Ice Cream Dipper Relationship Specialty Start Date End Date Roc Steele MD [address] [facility] [address] [place] [address] PCP - General 10/04/22 documented as of this encounter
--- OUTSIDE RECORDS SUMMARY | 2024-09-19 11:24 | XMS_ITS | Encounter Summary ---
Author Organization [facility] Address [address] [place] [address] Phone Care Team Providers Care Benefits Sales Consultant Name Role Phone Roc Steele MD Primary Care Provider [phone] Reason for Visit * Cardiac Stress Testing (Routine) - Authorized Specialty Diagnoses / Procedures Referred By Aminah t Referred To Contact Radiology Diagnoses Lightheadedness Chest discomfort Palpitations Mixed hyperlipidemia Procedures Nuclear Stress Test CHG MYOCARDIAL SPECT MULTIPLE STUDIES Amber Hawley MD 917 [facility] 130 [place] [address] Phone: tel: fax: Referral ID Status Reason Start Date Expiration Date V isits Requested Visits Authorized [id number] Authorized 07/15/2024 07/15/2025 5 5 Encounter Details Date Type Department Care Team (Latest Contact Info) Description 09/19/2024 11:24 AM EDT - 09/19/2024 11:59 PM EDT Hospital Encounter [place] [id number] [facility] [address] [place] [address] Discharge Disposition: Home Social History [...] needed at bedtime for anxiety. HYDROcodone-acetamino phen ([place]) 5-325 mg tablet Take 1 tablet by [...] Description 2024 2:15 PM EDT Office Visit [facility] 703 [facility] [address] [place] [address] Amber Hawley MD 917 [facility] [address] [place] [address] documented as of this encounter [...] documented as of this encounter Care Teams Benefits Sales Consultant Relationship Specialty Start Date End Date Roc Steele MD [address] [place] [address] PCP - General 10/04/22 documented as of this encounter
--- OUTSIDE RECORDS SUMMARY | 2024-09-19 13:00 | XMS_ITS | Encounter Summary ---
Author Organization [facility] Address [address] [place] [address] Phone Care Team Providers Care Casino Cage Supervisor Name Role Phone Roc Steele MD Primary Care Provider [phone] Reason for Visit * Cardiovascular (Routine) - Authorized Specialty Diagnoses / Procedures Referred By Contac t Referred To Contact Cardiology Diagnoses Paroxysmal supraventricular tachycardia Abnormal EKG Lightheadedness Chest discomfort Palpitations Procedures Holter Or Event Hot Dip Plater Amber Hawley MD 917 [facility] 130 [place] [address] Phone: tel: fax: Referral ID Status Reason Start Date Expiration Date V isits Requested Visits Authorized [id number] Authorized 07/15/2024 07/15/2025 1 1 Encounter Details Date Type Department Care Team (Latest Contact Info) Description 09/19/2024 1:00 PM EDT Ancillary Procedure [facility] 703 [facility] [address] [place] [address] Paroxysmal supraventricular tachycardia; Abnormal EKG; Lightheadedness; Chest discomfort; Palpitations Social History Tobacco Use Types Packs/Day Years [...] AM EDT documented as of this encounter Plan of Treatment Upcoming Encounters Date Type Department Care Team (Late st Contact Info) Description 2024 2:15 PM EDT Office Visit [facility] 703 [facility] [address] [place] [address] Amber Hawley MD 917 [facility] [address] [place] [address] Pending Results Name Type Priority Associated Diagnoses Date /Time Holter Or Event Hot Dip Plater Cardiac Services Routine Paroxysmal supraventricular tachycardia Abnormal EKG Lightheadedness Chest discomfort Palpitations 09/19/2024 1:31 PM EDT documented as of this encounter Visit Diagnoses Diagnosis Paroxysmal supraventricular tachycardia Abnormal EKG Nonspecific abnormal electrocardiogram (ECG) (EKG) Lightheadedness Dizziness and giddiness Chest discomfort Other chest pain Palpitations documented in this encounter Additional Health Concerns Assessment Noted Time A fall risk assessment has been complete d for the patient 07/15/2024 11:21 AM EDT documented as of this encounter Care Teams Casino Cage Supervisor Relationship Specialty Start Date End Date Roc Steele MD [address] [place] [address] [address] [place] [address] PCP - General 10/04/22 documented as of this encounter
--- OUTSIDE RECORDS SUMMARY | 2024-10-03 14:54 | XMS_ITS | Encounter Summary ---
Author Organization [facility] Address [address] [place] [address] Care Team Providers Care Ropeman Name Role Phone Roc Steele MD Primary Care Provider [phone] Roc Steele MD Unavailable [phone] Luis Felipe Dugan DO Unavailable [phone] Raya Holt RN Unavailable [phone] Gladis Laird LPN Unavailable Unavailable Encounter Details Date Type Department Care Team (Late st Contact Info) Description 06/10/2024 Orders Only [facility] [address] [facility] [address] [place] [address] Unallocated, Noms Provider, [address] [place] [address] Social History Tobacco Use Types [...] often do you attend chur ch or christian services? Never 11/25/2022 Do you belong to any clubs o r organizations such as bahai groups, unions, fraternal or athletic groups, or [...] Recorded Patient Health Questionnaire-2 Score 0 07/06/2023 [facility] of Occupat ional Health - Occupational [...] place to sleep or slept in a intermediate (including now)? No 11/25/2022 Comments Unknown Sex and Gender Information Value Date Recorded Sex Assigned at Not on file Legal Sex Female 7:20 PM EDT Gender Identity Not on file Sexual Orientation Not on file documented as of this encounter Plan of Treatment Upcoming Encounters Date Type Department Care Team ([facility] st Contact Info) Description 10/10/2024 3:00 PM EDT Procedure Visit [facility] 112 [facility] 120 [place] [address] Alex Tam DPM 3006 [facility] 5 [place] [address] 10/30/2024 11:30 AM EDT Office Visit [facility] 112 [facility] 110 [place] [address] Aarti Castillo, RUBBER VULCANIZING MACHINE OPERATOR 112 [facility] 110 [place] [address] documented as of this encounter Procedures Procedure [...] documented as of this encounter Care Teams Ropeman Relationship Specialty Start Date End Date Roc Steele MD [address] [facility] 110 [place] [address] PCP - General Internal Medicine 09/28/22 Roc Steele MD [address] [facility] 110 [place] [address] PCP - ACO Reach 08/30/23 Luis Felipe Dugan DO [address] [facility] 110 [place] [address] Referring Physician Neurology 03/07/24 Raya Holt, RN Clinical Advocate Family Medicine 06/07/24 07/19/24 Gladis Laird LPN 07/19/24 documented as of this encounter
--- OUTSIDE RECORDS SUMMARY | 2024-10-03 14:54 | XMS_ITS | Encounter Summary ---
Author Organization [facility] Address [address] [place] [address] Care Team Providers Care Roundhouse Supervisor Name Role Phone Roc Steele MD Primary Care Provider Roc Steele MD Unavailable [phone] Luis Felipe Dugan DO Unavailable [phone] Gladis Laird LPN Unavailable Unavailable Reason for Visit * Reason Comments New Med Request Encounter Details Date Type Department Care Team (Late st Contact Info) Description 10/02/2024 Refill [facility] [address] [facility] 110 [place] [address] Aarti Castillo, SOIL SAMPLER 112 [facility] 110 [place] [address] Acute low back pain without sciatica, unspecified back pain laterality Social History Tobacco Use Types Packs/Day Years [...] How often do you attend chur or alevism services? Never 11/25/2022 Do you belong to any clubs o r organizations such as jew groups, unions, fraternal or athletic groups, or [...] Recorded Patient Health Questionnaire-2 Score 0 08/19/2024 [facility]ational Stress Questionnaire Answer Date [...] EDT Procedure Visit [facility] 112 [facility] 120 [place] [address] Alex Tam DPM 3006 [facility] 5 [place] [address] 10/30/2024 11:30 AM EDT Office Visit [facility] 112 [facility] 110 [place] [address] Aarti Castillo, SOIL SAMPLER 112 [facility] 110 [place] [address] documented as of this encounter Visit Diagnoses Diagnosis Acute low back pain without sciatica, unspecified back pain laterality Pain due to onychomycosis of toenails of both feet- Primary documented in this encounter Additional Health Concerns Assessment Noted Time PHQ-9 Depression Total Score: 0 07/06/19 24 3:00 PM EST documented as of this encounter Care Teams Roundhouse Supervisor Relationship Specialty Start Date End Date Roc Steele MD 112 [facility] 110 [place] [address] PCP - General Internal Medicine 09/28/22 Roc Steele MD [address] [facility] 110 [place] [address] PCP - ACO Reach 08/30/23 Luis Felipe Dugan DO 112 [facility] 110 [place] [address] Referring Physician Neurology 03/07/24 Gladis Laird LPN 07/19/24 documented as of this encounter
--- OUTSIDE RECORDS SUMMARY | 2024-10-03 14:54 | XMS_ITS | Encounter Summary ---
Author Organization [facility] Address [address] [place] [address] Care Team Providers Care Ivf Embryologist Name Role Phone Roc Steele MD Primary Care Provider [phone] Roc Steele MD Unavailable [phone] Luis Felipe Dugan DO Unavailable [phone] Raya Holt RN Unavailable [phone] Gladis Laird LPN Unavailable Unavailable Encounter Details Date Type Department Care Team (Late st Contact Info) Description 07/11/2024 Abstract [facility] 112 [facility] 110 [place] [address] Roc Steele MD 112 [facility] 110 [place] [address] Social History Tobacco Use Types [...] 11/25/2022 How often do you attend chur Inspirotec or shinto services? Never 11/25/2022 Do you belong to any clubs o r organizations such as episcopal groups, unions, fraternal or athletic groups, or [...] Recorded Patient Health Questionnaire-2 Score 0 07/11/2024 [facility] of Occupat ionmn Health - Occupational Stress Questionnaire Answer Date [...] place to sleep or slept in a chcf (including now)? No 11/25/2022 Comments Unknown Sex [...] [facility] [address] [facility] 120 [place] [address] Alex Tam, DPM 9509 [facility] 5 [place] [address] 10/30/2024 11:30 AM EDT Office Visit [facility] [address] [facility] 110 [place] [address] Aarti Castillo, SCRAP DEALER [address] [facility] [facility] 110 [place] [address] documented as of this encounter Visit Diagnoses Not on filedocumented in this encounter Additional Health Concerns Assessment Noted Time PHQ-9 Depression Total Score: 0 07/06/19 24 3:00 PM EST documented as of this encounter Care Teams Ivf Embryologist Relationship Specialty Start Date End Date Roc Steele MD [address] [facility] 110 [place] [address] PCP - General Internal Medicine 09/28/22 Roc Steele MD [address] [facility] 110 [place] [address] PCP - ACO Reach 08/30/23 Luis Felipe Dugan DO [address] [facility] 110 [place] [address] Referring Physician Neurology 03/07/24 Raya Holt, RN Clinical Advocate Family Medicine 06/07/24 07/19/24 Gladis Laird LPN 07/19/24 documented as of this encounter
--- OUTSIDE RECORDS SUMMARY | 2024-10-03 14:54 | XMS_ITS | Encounter Summary ---
Author Organization [facility] Address [address] [place] [address] Care Team Providers Care Power Engineer Name Role Phone Roc Steele MD Primary Care Provider [phone] Roc Steele MD Unavailable [phone] Luis Felipe Dugan DO Unavailable [phone] Raya Holt RN Unavailable [phone] Gladis Laird LPN Unavailable Unavailable Encounter Details Date Type Department Care Team (Late st Contact Info) Description 06/27/2024 Abstract [facility] 112 [facility] 110 [place] [address] Roc Steele MD 112 [facility] 110 [place] [address] Social History Tobacco Use Types [...] 11/25/2022 How often do you attend chur Tr[employer] or jewish services? Never 11/25/2022 Do you [...] Recorded Patient Health Questionnaire-2 Score 0 07/06/2023 [facility] of Occupat ionde Health - Occupational Stress [...] Upcoming Encounters Date Type Department Care Team ([facility] st Contact Info) Description 10/10/2024 3:00 PM EDT Procedure Visit [facility] 112 [facility] 120 [place] [address] Alex Tam DPM 3006 [facility] 5 [place] [address] 10/30/2024 11:30 AM EDT Office Visit [facility] 112 [facility] 110 [place] [address] Aarti Castillo, CUSTOMER QUALITY SPECIALIST 112 [facility] 110 [place] [address] documented as of this encounter Visit Diagnoses Not on filedocumented in this encounter Additional Health Concerns Assessment Noted Time PHQ-9 Depression Total Score: 0 07/06/19 24 3:00 PM EST documented as of this encounter Care Teams Power Engineer Relationship Specialty Start Date End Date Roc Steele MD [address] [facility] 110 [place] [address] PCP - General Internal Medicine 09/28/22 Roc Steele MD [address] [facility] 110 [place] [address] PCP - ACO Reach 08/30/23 Luis Felipe Dugan DO [address] [facility] 110 [place] [address] Referring Physician Neurology 03/07/24 Raya Holt, RN Clinical Advocate Family Medicine 06/07/24 07/19/24 Gladis Laird LPN 07/19/24 documented as of this encounter
--- OUTSIDE RECORDS SUMMARY | 2024-10-03 14:54 | XMS_ITS | Encounter Summary ---
Author Organization [facility] Address [address] [place] [address] Care Team Providers Care Restaurant Server Name Role Phone Roc Steele MD Unavailable [phone] Roc Steele MD Primary Care Provider [phone] Roc Steele MD Unavailable [phone] Luis Felipe Dugan DO Unavailable [phone] Raya Holt RN Unavailable [phone] Gladis Laird LPN Unavailable Unavailable Encounter Details Date Type Department Care Team (Late st Contact Info) Description 03/01/2023 Abstract [facility] 112 [facility] 110 [place] [phone] Aarti Castillo, FURNACE OPERATOR [address] [facility] 110 [place], [place] [phone] Social History Tobacco Use Types Packs/Day Years [...] often do you attend chur ch or mandaeism services? Never 11/25/2022 Do you belong to any clubs o r organizations such as mormonism groups, unions, fraternal or athletic groups, or [...] place to sleep or slept in a fpc (including now)? No 11/25/2022 Comments Unknown Sex [...] Visit [facility] PODIATRY [address] [facility] 120 [place] [address] Alex Tam, DPM 3006 [facility] 5 [place] [address] 10/30/2024 11:30 AM EDT Office Visit [facility] [address] [facility] 110 [place] [address] Aarti Castillo FURNACE OPERATOR [address] [facility] 110 [place] [address] documented as of this encounter Visit Diagnoses Not on filedocumented in this encounter Care Teams Restaurant Server Relationship Specialty Start Date End Date Roc Steele MD [address] [facility] 110 [place] [address] PCP - ACO Reach 09/22/22 06/29/23 Roc Steele MD [address] [facility] 110 [place] [address] PCP - General Internal Medicine 09/28/22 Roc Steele MD [address] [facility] 110 [place] [address] PCP - ACO Reach 08/30/23 Luis Felipe Dugan DO [address] [facility] 110 [place] [address] Referring Physician Neurology 03/07/24 Raya Holt, RN Clinical Advocate Family Medicine 06/07/24 07/19/24 Gladis Laird LPN 07/19/24 documented as of this encounter
--- OUTSIDE RECORDS SUMMARY | 2024-10-03 14:54 | XMS_ITS | Encounter Summary ---
Author Organization [facility] Address [address] [place] [address] Care Team Providers Care Steam Blocker Name Role Phone Roc Steele MD Primary Care Provider [phone] Roc Steele MD Unavailable [phone] Luis Felipe Dugan DO Unavailable [phone] Raya Holt RN Unavailable [phone] Gladis Laird LPN Unavailable Unavailable Encounter Details Date Type Department Care Team (Late st Contact Info) Description 07/11/2024 Abstract [facility] 112 [facility] 110 [place] [address] Roc Steele MD 112 [facility] 110 [place] [address] Social History Tobacco Use Types [...] 11/25/2022 How often do you attend chur [employer] or anglican services? Never 11/25/2022 Do you belong to [...] Recorded Patient Health Questionnaire-2 Score 0 07/11/2024 [facility] of Occupat ionma Health - Occupational Stress Questionnaire Answer Date [...] [facility] [address] [place] 120 [place] [address] Alex Tam, DPM 0150 [facility] 5 [place] [address] 10/30/2024 11:30 AM EDT Office Visit [facility] [address] [facility] 110 [place] [address] Aarti Castillo, TRANSISTOR TESTER [address] [place] [facility] 110 [place] [address] documented as of this encounter Visit Diagnoses Not on filedocumented in this encounter Additional Health Concerns Assessment Noted Time PHQ-9 Depression Total Score: 0 07/06/19 24 3:00 PM EST documented as of this encounter Care Teams Steam Blocker Relationship Specialty Start Date End Date Roc Steele MD [address] [facility] 110 [place] [address] PCP - General Internal Medicine 09/28/22 Roc Steele MD [address] [facility] 110 [place] [address] PCP - ACO Reach 08/30/23 Luis Felipe Dugan DO [address] [facility] 110 [place] [address] Referring Physician Neurology 03/07/24 Raya Holt, RN Clinical Advocate Family Medicine 06/07/24 07/19/24 Gladis Laird LPN 07/19/24 documented as of this encounter
--- OUTSIDE RECORDS SUMMARY | 2024-10-03 14:54 | XMS_ITS | Encounter Summary ---
Author Organization [facility] Address [address] [place] [address] Care Team Providers Care Shellfish Meat Separator Operator Name Role Phone Roc Steele MD Unavailable [phone] Roc Steele MD Primary Care Provider [phone] Roc Steele MD Unavailable [phone] Luis Felipe Dugan DO Unavailable [phone] Raya Holt RN Unavailable [phone] Gladis Laird LPN Unavailable Unavailable Encounter [...] often do you attend chur ch or restorationist services? Never 11/25/2022 Do you belong to any clubs o r organizations such as protestant groups, unions, fraternal or athletic groups, or [...] heating? Not hard at all 11/25/2022 [facility] of Occupat ional Health [...] place to sleep or slept in a jail (including now)? No 11/25/2022 Comments Unknown Sex and Gender Information Value Date Recorded Sex Assigned at Not on file Legal Sex Female 7:20 PM EDT Gender Identity Not on file Sexual Orientation Not on file documented as of this encounter Plan of Treatment Upcoming Encounters Date Type Department Care Team ([facility] st Contact Info) Description 10/10/2024 3:00 PM EDT Procedure Visit [facility]ODIAT[facility] 112 [facility] 120 [place] [address] Alex Tam DPM 3006 [facility] 5 [place] [address] 10/30/2024 11:30 AM EDT Office Visit [facility] 112 [facility] 110 [place] [address] Aarti Castillo CALENDER ROLL PRESS OPERATOR [address] [facility] 110 [place] [address] documented as of this encounter Procedures Procedure Name Priority Date/Time Associated Diagnosis Comments XR CHEST 2V 06/22/2023 3:17 PM EST documented in this encounter Results * XR CHEST 2V (06/22/2023 3:17 PM EST) Anatomical Region Laterality Modality Other 06/22/2023 3:17 PM EST Narrative 06/22/2023 3:19 [place] [address] XRay Report Signed Patient: USHA WALKER MR#: [id number] : 1945 Acct:[id number] Age/Sex: 77 / F ADM Date: 06/22/23 Loc: LAB Attending Dr: ALEX TAM Ordering Physician: ALEX TAM Date of Service: 06/22/23 Procedure(s): XR chest 2V Accession Number(s): [id number] cc: ROC STEELE ; ALEX TAM [place] [address] Patient Name: USHA WALKER MRN: [id number] date: 1945 Sex: F Assigned Patient Location: LAB Current Patient Location: LAB Accession/Order Number: [id number] Exam Date: 06/22/2023 14:05 Report Date: 06/22/2023 [...] Signed By: 06/22/23 1519 DD/ 151 TD/TT: Fish Inspector: Procedure Note Radiology, Radiologist, - 06/22/2023 The [place] [id number] XRay Report Signed Patient: USHA WALKER KMR#: [id number] : 1945cct:[id number] Age/Sex: 77 / FADM Date: 06/22/23 Loc: LAB Attending Dr: ALEX TAM Ordering Physician: ALEX TAM Date of Service: 06/22/23 Procedure(s): XR chest 2V Accession Number(s): [id number] cc: ROC STEELE ; ALEX TAM [address] [address] Patient Name: USHA WALKER MRN: [id number] date: 1945 Sex: F Assigned Patient Location: LAB Current Patient Location: LAB Accession/Order Number: [id number] Exam Date: 06/22/2023 14:05 Report Date: 06/22/2023 [...] M.D. Signed By:06/22/23 1519 DD/ 1517 TD/TT: Fish Inspector: us Generic External Data Provider [facility] Final Result documented in this encounter Visit Diagnoses Not on filedocumented in this encounter Care Teams Shellfish Meat Separator Operator Relationship Specialty Start Date End Date Roc Steele MD [address] [place] [address] PCP - ACO Reach 09/22/22 06/29/23 Roc Steele MD [address] [facility] 110 [place] [address] PCP - General Internal Medicine 09/28/22 Roc Steele MD [address] [facility] 110 [place] [address] PCP - ACO Reach 08/30/23 Luis Felipe Dugan DO [address] [facility] 110 [place] [address] Referring Physician Neurology 03/07/24 Raya Holt, RN Clinical Advocate Family Medicine 06/07/24 07/19/24 Gladis Laird LPN 07/19/24 documented as of this encounter
--- OUTSIDE RECORDS SUMMARY | 2024-10-03 14:54 | XMS_ITS | Encounter Summary ---
Author Organization [facility] Address [address] [place] [address] Care Team Providers Care Dressage Judge Name Role Phone Roc Steele MD Primary Care Provider [phone] Roc Steele MD Unavailable [phone] Luis Felipe Dugan DO Unavailable [phone] Raya Holt RN Unavailable [phone] Gladis Laird LPN Unavailable Unavailable Encounter Details Date Type Department Care Team (Late st Contact Info) Description 06/25/2024 Abstract [facility] 112 [facility] 110 [place] [address] Roc Steele MD 112 [facility] 110 [place] [address] Social History Tobacco Use Types [...] 11/25/2022 How often do you attend chur [employer] or uatsdin services? Never 11/25/2022 Do you belong to any clubs o r organizations such as lutheran groups, unions, fraternal or athletic groups, or [...] Score 0 07/06/2023 [facility] of Occupat ionmi Health - Occupational Stress [...] EDT Procedure Visit [facility] 112 [facility] 120 [place] [address] Alex Tam DPM 3006 [facility] 5 [place] [address] 10/30/2024 11:30 AM EDT Office Visit [facility] [address] [facility] 110 [place] [address] Aarti Castillo, HOME SCHOOL TEACHER 112 [facility] 110 [place] [address] documented as of this encounter Visit Diagnoses Not on filedocumented in this encounter Additional Health Concerns Assessment Noted Time PHQ-9 Depression Total Score: 0 07/06/19 24 3:00 PM EST documented as of this encounter Care Teams Dressage Judge Relationship Specialty Start Date End Date Roc Steele MD [address] [facility] 110 [place] [address] PCP - General Internal Medicine 09/28/22 Roc Steele MD [address] [facility] 110 [place] [address] PCP - ACO Reach 08/30/23 Luis Felipe Dugan DO [address] [facility] 110 [place] [address] Referring Physician Neurology 03/07/24 Raya Holt, RN Clinical Advocate Family Medicine 06/07/24 07/19/24 Gladis Laird LPN 07/19/24 documented as of this encounter
--- OUTSIDE RECORDS SUMMARY | 2024-10-03 14:54 | XMS_ITS | Encounter Summary ---
Author Organization [facility] Address [address] [place] [address] Care Team Providers Care Police Investigator Name Role Phone Roc Steele MD Primary Care Provider [phone] Roc Steele MD Unavailable [phone] Luis Felipe Dugan DO Unavailable [phone] Gladis Laird LPN Unavailable Unavailable Encounter Details Date Type Department Care Team (Late st Contact Info) Description 10/01/2024 Clinisync Result Encounter [facility] External Department Unsolicited [...] often do you attend chur ch or sabianist services? Never 11/25/2022 Do you belong to any clubs o r organizations such as orthodox groups, unions, fraternal or athletic groups, or [...] Recorded Patient Health Questionnaire-2 Score 0 08/19/2024 [facility] Questionnaire Answer Date Recorded [...] PODIATRY 112 [facility] 120 [place] [address] Alex Tam DPM 3006 [facility] 5 [place] [address] 10/30/2024 11:30 AM EDT Office Visit [facility] 112 [facility] 110 [place] [address] Aarti Castillo, LOG HOOKER 112 [facility] 110 [place] [address] documented as of this encounter Procedures Procedure Name Priority Date/Time Associated Diagnosis Comments MR LUMBAR SPINE WO CON 10/01/2024 2:34 PM EDT documented in this encounter Results * MR LUMBAR SPINE WO CON (10/01/2024 2:34 PM EDT) Anatomical Region Laterality Modality Other 10/01/2024 2:34 PM EDT Narrative 10/01/2024 2:37 PM EDT [address] [address] Magnetic Resonance Report Signed Patient: USHA WALKER MR#: [id number] : 1945 Acct:[id number] Age/Sex: 78 / F ADM Date: 10/01/24 Loc: MRI Attending Dr: Ml Sanchez M.D. Ordering Physician: Ml Sanchez M.D. Date of Service: 10/01/24 Procedure(s): MR lumbar spine wo con Accession Number(s): [id number] cc: ROC STEELE ; Ml Sanchez M.D. [address] [address] Patient Name: USHA WALKER MRN: [id number] date: 1945 Sex: F Assigned Patient Location: MRI Current Patient Location: MRI Accession/Order Number: [id number] Exam Date: 10/01/2024 14:28 Report Date: 10/01/2024 14:34 At the request of: ML SANCHEZ MD Procedure: MR lumbar spine wo con MR lumbar spine wo con 10/01/2024 1:39 PM SIGNS AND SYMPTOMS: Acute low back pain with bilateral leg weakness PROTOCOL: Multiplanar multisequence MR images of the lumbar spine without IV contrast COMPARISON: None. FINDINGS: Bilateral L5 pars defects are suspected with grade 1 spondylolisthesis of L5 upon S1 measuring 5 mm. There is preservation of vertebral body heights. There is moderate severe disc height loss at L1-L2, L2-L3, and L3-L4. The marrow signal is within normal limits. The conus terminates at the L1-L2 intervertebral disc level. No epidural or paraspinous fluid collection is appreciated. At T12-L1: There is a normal disc, central canal, and neural foramen. At L1-L2: There is a broad-based disc bulge with facet hypertrophy. There is moderate spinal canal narrowing with mild to moderate bilateral neural foraminal narrowing. At L2-L3: There is a circumferential disc bulge with facet hypertrophy and ligamentum flavum thickening. There is moderate spinal canal stenosis with moderate bilateral neural foraminal narrowing. At L3-L4: There is a circumferential disc bulge with endplate osteophyte formation. There is facet hypertrophy with ligamentum flavum thickening. This contributes to moderate to severe left and mild right neural foraminal narrowing with moderate spinal canal stenosis. At L4-L5: There is a broad-based disc bulge with facet hypertrophy contributing to mild spinal canal stenosis and mild to moderate bilateral neural foraminal narrowing. At L5-S1: There is a right-sided external synovial cyst. There is a circumferential disc bulge with grade 1 spondylolisthesis above. There is moderate to severe bilateral neural foraminal narrowing with mass effect on the exiting L5 nerve roots. There is moderate to severe spinal canal stenosis. MR/MR lumbar spine wo con IMPRESSION: At L5-S1: There is a right-sided external synovial cyst. There is a circumferential disc bulge with grade 1 spondylolisthesis above. There is moderate to severe bilateral neural foraminal narrowing with mass effect on the exiting L5 nerve roots. There is moderate to severe spinal canal stenosis. At L3-L4: There is a circumferential disc bulge with endplate osteophyte formation. There is facet hypertrophy with ligamentum flavum thickening. This contributes to moderate to severe left and mild right neural foraminal narrowing with moderate spinal canal stenosis. Additional but lesser degrees of degenerative changes are noted as above. Impression dictated by: Sj Bach M.D. 10/01/2024 2:34 PM Dictation Location: [place] [address] Electronically authenticated by: [id number] Y Date: 10/01/2024 14:34 Dictated By: Sj Bach M.D. Signed By: 10/01/24 1437 DD/ 1434 TD/TT: Desk Sergeant: Procedure Note Radiology, Radiologist, - 10/01/[address] [address] Magnetic Resonance Report Signed Patient: USHA WALKER KMR#: [id number] : 1945cct:[id number] Age/Sex: 78 / FADM Date: 10/01/24 Loc: MRI Attending Dr: Ml Sanchez M.D. Ordering Physician: Ml Sanchez M.D. Date of Service: 10/01/24 Procedure(s): MR lumbar spine wo con Accession Number(s): [id number] cc: ROC STEELE ; Ml Sanchez M.D. [place] [address] Patient Name: USHA WALKER MRN: [facility]:[id number] date: 1945 Sex: F Assigned Patient Location: MRI Current Patient Location: MRI Accession/Order Number: [id number] Exam Date: 10/01/2024 14:28 Report Date: 10/01/2024 14:34 At the request of: ML SANCHEZ MD Procedure: MR lumbar spine wo con MR lumbar spine wo con 10/01/2024 1:39 PM SIGNS AND SYMPTOMS: Acute low back pain with bilateral leg weakness PROTOCOL: Multiplanar multisequence MR images of the lumbar spine withoutIV contrast COMPARISON: None. FINDINGS: Bilateral L5 pars defects are suspected with grade 1 spondylolisthesis of L5 upon S1 measuring 5 mm. There is preservation of vertebral body heights. There is moderate severe disc height loss atL1-L2, L2-L3, and L3-L4. The marrow signal is within normal limits. The conus terminates at the L1-L2 intervertebral disc level. No epidural orparaspinous fluid collection is appreciated. At T12-L1: There is a normal disc, central canal, and neural foramen. At L1-L2: There is a broad-based disc bulge with facet hypertrophy. Thereis moderate spinal canal narrowing with mild to moderate bilateral neural foraminal narrowing. At L2-L3: There is a circumferential disc bulge with facet hypertrophy and ligamentum flavum thickening. There is moderate spinal canal stenosiswith moderate bilateral neural foraminal narrowing. At L3-L4: There is a circumferential disc bulge with endplate osteophyte formation. There is facet hypertrophy with ligamentum flavum thickening. This contributes to moderate to severe left and mild right neuralforaminal narrowing with moderate spinal canal stenosis. At L4-L5: There is a broad-based disc bulge with facet hypertrophy contributing to mild spinal canal stenosis and mild to moderate bilateral neural foraminal narrowing. At L5-S1: There is a right-sided external synovial cyst. There is a circumferential disc bulge with grade 1 spondylolisthesis above. There is moderate to severe bilateral neural foraminal narrowing with mass effecton the exiting L5 nerve roots. There is moderate to severe spinal canal stenosis. MR/MR lumbar spine wo con IMPRESSION: At L5-S1: There is a right-sided external synovial cyst. There is a circumferential disc bulge with grade 1 spondylolisthesis above. There is moderate to severe bilateral neural foraminal narrowing with mass effecton the exiting L5 nerve roots. There is moderate to severe spinal canal stenosis. At L3-L4: There is a circumferential disc bulge with endplate osteophyte formation. There is facet hypertrophy with ligamentum flavum thickening. This contributes to moderate to severe left and mild right neuralforaminal narrowing with moderate spinal canal stenosis. Additional but lesser degrees of degenerative changes are noted as above. Impression dictated by: Sj Bach M.D. 10/01/2024 2:34 PM Dictation Location: [place] [address] Electronically authenticated by: [id number] Y Date: 4:34 Dictated By: Sj Bach M.D. Signed By:10/01/24 1437 DD/ 1434 TD/TT: Desk Sergeant: Generic External Data Provider [facility] Final Result documented in this encounter Visit Diagnoses Not on filedocumented in this encounter Additional Health Concerns Assessment Noted Time PHQ-9 Depression Total Score: 0 07/06/19 24 3:00 PM EST documented as of this encounter Care Teams Police Investigator Relationship Specialty Start Date End Date Roc Steele MD [address] [facility] 110 [place] [address] PCP - General Internal Medicine 09/28/22 Roc Steele MD [address] [facility] 110 [place] [address] PCP - ACO Reach 08/30/23 Luis Felipe Dugan DO 112 [place] [address] Referring Physician Neurology 03/07/24 Gladis Laird LPN 07/19/24 documented as of this encounter
--- OUTSIDE RECORDS SUMMARY | 2024-10-03 14:54 | XMS_ITS | Encounter Summary ---
Author Organization [facility] Address [address] [place] [address] Care Team Providers Care Insurance Defense Paralegal Name Role Phone Roc Steele MD Primary Care Provider [phone] Roc Steele MD Unavailable [phone] Luis Felipe Dugan DO Unavailable [phone] Raya Holt RN Unavailable [phone] Gladis Laird LPN Unavailable Unavailable Encounter Details Date Type Department Care Team (Late st Contact Info) Description 07/02/2024 Abstract [facility] 112 [facility] 110 [place] [address] Roc Steele MD 112 [facility] 110 [place] [address] Social History Tobacco Use Types [...] 11/25/2022 How often do you attend chur Hyper Urban Level User [place] or buddhist services? Never 11/25/2022 Do you belong to any clubs o r organizations such as mosque groups, unions, fraternal or athletic groups, or [...] Recorded Patient Health Questionnaire-2 Score 0 07/03/2024 [facility] of Occupat ionmn Health - Occupational [...] Upcoming Encounters Date Type Department Care Team ([facility] st Contact Info) Description 10/10/2024 3:00 PM EDT Procedure Visit [facility] 112 [facility] 120 [place] [address] Alex Tam DPM 7530 [facility] [place] 5 [place] [address] 10/30/2024 11:30 AM EDT Office Visit [facility] [address] [facility] 110 [place] [phone] Aarti Castillo, SOLAR DEVELOPMENT ENGINEER [address] [place] [address] [place] [address] documented as of this encounter Visit Diagnoses Not on filedocumented in this encounter Additional Health Concerns Assessment Noted Time PHQ-9 Depression Total Score: 0 07/06/19 24 3:00 PM EST documented as of this encounter Care Teams Insurance Defense Paralegal Relationship Specialty Start Date End Date Roc Steele MD [address] [facility] 110 [place] [address] PCP - General Internal Medicine 09/28/22 Roc Steele MD [address] [facility] 110 [place] [address] PCP - ACO Reach 08/30/23 Luis Felipe Dugan DO [address] [facility] 110 [place] [address] Referring Physician Neurology 03/07/24 Raya Holt, RN Clinical Advocate Family Medicine 06/07/24 07/19/24 Gladis Laird LPN 07/19/24 documented as of this encounter
--- OUTSIDE RECORDS SUMMARY | 2024-10-03 14:54 | XMS_ITS | Encounter Summary ---
Author Organization [facility] Address [address] [place] [address] Care Team Providers Care Gun Tester Name Role Phone Roc Steele MD Unavailable [phone] Roc Steele MD Primary Care Provider [phone] Roc Steele MD Unavailable [phone] Luis Felipe Dugan DO Unavailable [phone] Raya Holt RN Unavailable [phone] Gladis Laird LPN Unavailable Unavailable Encounter [...] any clubs o r organizations such as baptist groups, unions, fraternal or athletic groups, or [...] and heating? Not hard at all 11/25/2022 [facility] of Occupat ional Health - Occupational [...] place to sleep or slept in a long term (including now)? No 11/25/2022 Comments Unknown Sex [...] [facility] 120 [place] [address] Alex Tam DPM 3006 [facility] 5 [place] [address] 10/30/2024 11:30 AM EDT Office Visit [facility] 112 [facility] 110 [place] [address] Aarti Castillo EVP OPERATIONS 112 [facility] 110 [place] [address] documented as of this encounter Procedures Procedure Name Priority Date/Time Associated Diagnosis Comments ECG 12-LEAD 06/22/2023 2:24 PM EST documented in this encounter Results * ECG 12-LEAD (06/22/2023 2:24 PM EST) Anatomical Region Laterality Modality Other 06/22/2023 2:24 PM EST Narrative 06/22/2023 10:19 [place] [address] Electrocardiograph Report Signed Patient: USHA WALKER MR#: [id number] : 1945 Acct:[id number] Age/Sex: 77 / F ADM Date: 06/22/23 Loc: LAB Attending Dr: ALEX TAM Ordering Physician: ALEX TAM Date of Service: 06/22/23 Procedure(s): ECG 12 lead Accession Number(s): [id number] cc: [facility] Test Date: 2023-06-22 Pat Name: USHA WALKER Department: Room: - Gender: Female Call Worker Person: : 1945 Requested By: ALEX TAM Order Number: [id number] Reading MD: ELLIS DANIELSON Measurements Intervals [place] Rate: 84 P: 56 [place]: 169 QRS: -28 QRSD: 118 T: 18 [...] D.O. Signed By: 06/22/23221806/22/232218 DD/ 1424 TD/TT: Safety Associate: Procedure Note Radiology, Radiologist, MD - 06/22/2023 The [place] [id number] Electrocardiograph Report Signed Patient: USHA WALKER KMR#: [id number] : 7Acct:[id number] Age/Sex: 77 / FADM Date: 06/22/23 Loc: LAB Attending Dr: ALEX TAM Ordering Physician: ALEX TAM Date of Service: 06/22/23 Procedure(s): ECG 12 lead Accession Number(s): [id number] cc: [facility] Test Date: 2023-06-22 Pat Name: USHA WALKER Department: Room: - Gender: Female Call Worker Person: : 1945 Requested By: ALEX TAM Order Number: [id number] Reading MD: ELLIS DANIELSON Measurements Intervals [place] Rate: 84 P: 56 [place]: 169 QRS: -28 QRSD: 118 T: 18 [...] Danielson D.O. Signed By:06/22/23221806/22/232218 DD/ 142 TD/TT: Safety Associate: us Generic External Data Provider [facility] Final Result documented in this encounter Visit Diagnoses Not on filedocumented in this encounter Care Teams Gun Tester Relationship Specialty Start Date End Date Roc Steele MD [address] [facility] 110 [place] [address] PCP - ACO Reach 09/22/22 06/29/23 Roc Steele MD [address] [facility] 110 [place] [address] PCP - General Internal Medicine 09/28/22 Roc Steele MD [address] [place] [address] [place] [address] PCP - ACO Reach 08/30/23 Luis Felipe Dugan DO [address] [place] [address] [place] [address] Referring Physician Neurology 03/07/24 Raya Holt, RN Clinical Advocate Family Medicine 06/07/24 07/19/24 Gladis Laird LPN 07/19/24 documented as of this encounter
--- OUTSIDE RECORDS SUMMARY | 2024-10-03 14:54 | XMS_ITS | Encounter Summary ---
Author Organization [facility] Address [address] [place] [address] Care Team Providers Care Supervisor Mechanic Boilermaking Name Role Phone Roc Steele MD Unavailable [phone] Roc Steele MD Primary Care Provider [phone] Roc Steele MD Unavailable [phone] Luis Felipe Dugan DO Unavailable [phone] Raya Holt RN Unavailable [phone] Gladis Laird LPN Unavailable Unavailable Encounter Details Date Type Department Care Team (Late st Contact Info) Description 03/02/2023 Abstract [facility] [address] [facility] 110 [place] [address] Roc Steele MD [address] [facility] 110 [place], [place] [address] Social History Tobacco Use Types Packs/Day Years [...] How often do you attend chur or shinto services? Never 11/25/2022 Do you [...] and heating? Not hard at all 11/25/2022 [facility] Occupat ional Health - [...] Procedure Visit [facility] PODI[facility] [address] [facility] 120 [place] [address] Alex Tam, DPM 3006 [facility] 5 [place] [address] 10/30/2024 11:30 AM EDT Office Visit [facility] [address] [facility] 110 [place] [address] Aarti Castillo [employer] [address] [facility] 110 [place] [address] documented as of this encounter Visit Diagnoses Not on filedocumented in this encounter Care Teams Supervisor Mechanic Boilermaking Relationship Specialty Start Date End Date Roc Steele MD [address] [facility] 110 [place] [address] PCP - ACO Reach 09/22/22 06/29/23 Roc Steele MD [address] [facility] [address] [place] [address] PCP - General Internal Medicine 09/28/22 Roc Steele MD [address] [facility] [address] [place] [address] PCP - ACO Reach 08/30/23 Luis Felipe Dugan DO [address] [facility] [address] [place] [address] Referring Physician Neurology 03/07/24 Raya Holt, RN Clinical Advocate Family Medicine 06/07/24 07/19/24 Gladis Laird LPN 07/19/24 documented as of this encounter
--- OUTSIDE RECORDS SUMMARY | 2024-10-03 14:55 | XMS_ITS | Encounter Summary ---
Author Organization [facility] Address [address] [place] [address] Care Team Providers Care Wire Annealer Name Role Phone Roc Steele MD Primary Care Provider [phone] Roc Steele MD Unavailable [phone] Luis Felipe Dugan DO Unavailable [phone] Raya Holt RN Unavailable [phone] Gladis Laird LPN Unavailable Unavailable Encounter Details Date Type Department Care Team (Late st Contact Info) Description 05/30/2024 Abstract [facility] 112 [facility] 110 [place] [address] Roc Steele MD 112 [facility] 110 [place] [address] Social History Tobacco Use Types [...] 11/25/2022 How often do you attend chur [employer] or christian services? Never 11/25/2022 Do you [...] Recorded Patient Health Questionnaire-2 Score 0 07/06/2023 [facility] of Occupat ionga Health - Occupational Stress Questionnaire Answer Date [...] place to sleep or slept in a prison (including now)? No 11/25/2022 Comments Unknown Sex and Gender Information Value Date Recorded Sex Assigned at Not on file Legal Sex Female 7:20 PM EDT Gender Identity Not on file Sexual Orientation Not on file documented as of this encounter Plan of Treatment Upcoming Encounters Date Type Department Care Team ([facility] st Contact Info) Description 10/10/2024 3:00 PM EDT Procedure Visit [facility] 112 [facility] 120 [place] [address] Alex Tam DPM 3006 [facility] 5 [place] [address] 10/30/2024 11:30 AM EDT Office Visit [facility] 112 [facility] 110 [place] [address] Aarti Castillo, STATISTICAL MACHINE SERVICER 112 [facility] 110 [place] [address] documented as of this encounter Visit Diagnoses Not on filedocumented in this encounter Additional Health Concerns Assessment Noted Time PHQ-9 Depression Total Score: 0 07/06/19 24 3:00 PM EST documented as of this encounter Care Teams Wire Annealer Relationship Specialty Start Date End Date Roc Steele MD [address] [facility] 110 [place] [address] PCP - General Internal Medicine 09/28/22 Roc Steele MD [address] [facility] 110 [place] [address] PCP - ACO Reach 08/30/23 Luis Felipe Dugan DO [address] [facility] 110 [place] [address] Referring Physician Neurology 03/07/24 Raya Holt, RN Clinical Advocate Family Medicine 06/07/24 07/19/24 Gladis Laird LPN 07/19/24 documented as of this encounter
--- OUTSIDE RECORDS SUMMARY | 2024-10-03 14:55 | XMS_ITS | Encounter Summary ---
Author Organization [facility] Address [address] [place] [address] Care Team Providers Care Organizational Research Consultant Name Role Phone Roc Steele MD Primary Care Provider [phone] Roc Steele MD Unavailable [phone] Luis Felipe Dugan DO Unavailable [phone] Gladis Laird LPN Unavailable Unavailable Encounter Details Date Type Department Care Team (Late st Contact Info) Description 07/23/2024 Abstract [facility] 112 [address] [facility] 110 [place] [address] Roc Steele MD 112 [facility] 110 [place], [place] [address] Social History Tobacco Use Types Packs/Day Years [...] any clubs o r organizations such as samaritan groups, unions, fraternal or athletic groups, or [...] Patient Health Questionnaire-2 Score 0 07/11/2024 [facility] of Occupat ional Health - [...] Upcoming Encounters Date Type Department Care Team ([facility] st Contact Info) Description 10/10/2024 3:00 PM EDT Procedure Visit [facility] PODIATRY 112 [facility] 120 [place] [address] Alex Tam DPM 3006 [facility] 5 [place] [address] 10/30/2024 11:30 AM EDT Office Visit [facility] 112 [facility] 110 [place] [address] Aarti Castillo NP 112 [facility] 110 [place], [place] [address] documented as of this encounter Visit Diagnoses Not on filedocumented in this encounter Additional Health Concerns Assessment Noted Time PHQ-9 Depression Total Score: 0 07/06/19 24 3:00 PM EST documented as of this encounter Care Teams Organizational Research Consultant Relationship Specialty Start Date End Date Roc Steele MD [address] [facility] 110 [place] [address] PCP - General Internal Medicine 09/28/22 Roc Steele MD [address] [facility] 110 [place] [address] PCP - ACO Reach 08/30/23 Luis Felipe Dugan DO [address] [facility] 110 [place] [address] Referring Physician Neurology 03/07/24 Gladis Laird LPN 07/19/24 documented as of this encounter
--- OUTSIDE RECORDS SUMMARY | 2024-10-03 14:55 | XMS_ITS | Encounter Summary ---
Author Organization [facility] Address [address] [place] [place] [address] Care Team Providers Care Client Services Vice President Name Role Phone Roc Steele MD Unavailable [phone] Roc Steele MD Primary Care Provider [phone] Roc Steele MD Unavailable [phone] Luis Felipe Dugan DO Unavailable [phone] Raya Holt RN Unavailable [phone] Gladis Laird LPN Unavailable Unavailable Encounter Details Date Type Department Care Team (Late st Contact Info) Description 10/07/2022 Orders Only [facility] [address] [place] [address] [place] [address] Aarti Castillo, FUR STRETCHER [address] [place] [address] [place], [place] [address] Social History Tobacco Use Types Packs/Day Years [...] CI PODIATRY [address] [place] [address] [place] [address] Alex Tam DPRen 3006 [facility] 5 [place] [address] 10/30/2024 11:30 AM EDT Office Visit [facility] [address] [place] [address] [place] [address] Aarti Castillo, FUR STRETCHER [address] [place] [address] [place] [address] documented as of this encounter Procedures Procedure Name Priority Date/Time Associated Diagnosis Comments POLYSOMNOGRAPHY Routine 10/03/2022 9:04 AM EDT documented in this encounter Results * Polysomnography (10/03/2022 9:04 AM EDT) us Aarti Castillo [facility] ORDERABLES Maggi l Result documented in this encounter Visit Diagnoses Not on filedocumented in this encounter Care Teams Client Services Vice President Relationship Specialty Start Date End Date Roc Steele MD [address] [place] [address] [place] [address] PCP - ACO Reach 09/22/22 06/29/23 Roc Steele MD [address] [place] [address] [place] [address] PCP - General Internal Medicine 09/28/22 Roc Steele MD [address] [place] [address] [place] [address] PCP - ACO Reach 08/30/23 Luis Felipe Dugan DO [address] [place] [address] [place] [address] Referring Physician Neurology 03/07/24 Raya Holt, RN Clinical Advocate Family Medicine 06/07/24 07/19/24 Gladis Laird LPN 07/19/24 documented as of this encounter
--- OUTSIDE RECORDS SUMMARY | 2024-10-03 14:55 | XMS_ITS | Encounter Summary ---
Author Organization [facility] Address [address] [place] [address] Care Team Providers Care Sailing Instructor Name Role Phone Roc Steele MD Unavailable [phone] Roc Steele MD Primary Care Provider [phone] Roc Steele MD Unavailable [phone] Luis Felipe Dugan DO Unavailable [phone] Raya Holt RN Unavailable [phone] Gladis Laird LPN Unavailable Unavailable Encounter Details Date Type Department Care Team (Late st Contact Info) Description 12/07/2022 Orders Only [facility] [address] [place] [address] [place] [address] A, Unknown Practice [address] [place] [id number] Social History Tobacco Use Types Packs/Day Years [...] How often do you attend chur or denominational services? Never 11/25/2022 Do you belong to any clubs o r organizations such as jain groups, unions, fraternal or athletic groups, or [...] and heating? Not hard at all 11/25/2022 [facility] of Occupat ional [...] Procedure Visit [facility] PODIATRY [address] [facility] 120 [place] [address] Alex Tam DPM 3006 [facility] 5 [place] [address] 10/30/2024 11:30 AM EDT Office Visit [facility] 112 [facility] 110 [place] [address] Aarti Castillo NP 112 [facility] 110 [place] [address] documented as of this encounter Procedures Procedure [...] on filedocumented in this encounter Care Teams Sailing Instructor Relationship Specialty Start Date End Date Roc Steele MD [address] [place] [address] [place] [address] PCP - ACO Reach 09/22/22 06/29/23 Roc Steele MD [address] [facility] 110 [place] [address] PCP - General Internal Medicine 09/28/22 Roc Steele MD [address] [facility] 110 [place] [address] PCP - ACO Reach 08/30/23 Luis Felipe Dugan DO [address] [facility] 110 [place] [address] Referring Physician Neurology 03/07/24 Raya Holt, RN Clinical Advocate Family Medicine 06/07/24 07/19/24 Gladis Laird LPN 07/19/24 documented as of this encounter
--- OUTSIDE RECORDS SUMMARY | 2024-10-03 14:55 | XMS_ITS | Encounter Summary ---
Author Organization [facility] Address [address] [place] [address] Care Team Providers Care Escrow Clerk Name Role Phone Roc Steele MD Primary Care Provider [phone] Roc Steele MD Unavailable [phone] Luis Felipe Dugan DO Unavailable [phone] Raya Holt RN Unavailable [phone] Gladis Laird LPN Unavailable Unavailable Encounter Details Date Type Department Care Team (Late st Contact Info) Description 05/30/2024 Abstract [facility] 112 [facility] 110 [place] [address] Roc Steele MD 112 [facility] 110 [place] [address] Social History Tobacco Use Types [...] 11/25/2022 How often do you attend chur [employer] or protestant services? Never 11/25/2022 Do you belong to [...] Recorded Patient Health Questionnaire-2 Score 0 07/06/2023 [facility] of Occupat iontn Health - Occupational Stress [...] Upcoming Encounters Date Type Department Care Team ([facility] st Contact Info) Description 10/10/2024 3:00 PM EDT Procedure Visit [facility] 112 [facility] 120 [place] [address] Alex Tam DPM 3006 [facility] 5 [place] [address] 10/30/2024 11:30 AM EDT Office Visit [facility] 112 [facility] 110 [place] [address] Aarti Castillo, PRODUCT APPLICATIONS SCIENTIST 112 [facility] 110 [place] [address] documented as of this encounter Visit Diagnoses Not on filedocumented in this encounter Additional Health Concerns Assessment Noted Time PHQ-9 Depression Total Score: 0 07/06/19 24 3:00 PM EST documented as of this encounter Care Teams Escrow Clerk Relationship Specialty Start Date End Date Roc Steele MD [address] [facility] 110 [place] [address] PCP - General Internal Medicine 09/28/22 Roc Steele MD [address] [facility] 110 [place] [address] PCP - ACO Reach 08/30/23 Luis Felipe Dugan DO [address] [facility] 110 [place] [address] Referring Physician Neurology 03/07/24 Raya Holt, RN Clinical Advocate Family Medicine 06/07/24 07/19/24 Gladis Laird LPN 07/19/24 documented as of this encounter
--- OUTSIDE RECORDS SUMMARY | 2024-10-03 14:55 | XMS_ITS | Encounter Summary ---
Author Organization [facility] Address [address] [place] [address] Care Team Providers Care Green Tire Inspector Name Role Phone Roc Steele MD Unavailable [phone] Roc Steele MD Primary Care Provider [phone] Roc Steele MD Unavailable [phone] Luis Felipe Dugan DO Unavailable [phone] Raya Holt RN Unavailable [phone] Gladis Laird LPN Unavailable Unavailable Encounter Details Date Type Department Care Team (Late st Contact Info) Description 11/14/2022 Orders Only [facility] [address] [place] [address] [place] [address] Aarti Castillo, SHINGLE TRIMMER [address] [place] [address] [place], [place] [address] Social History Tobacco Use Types Packs/Day Years [...] CI PODIATRY [address] [place] [address] [place] [address] Alex Tam DPRen 3006 [facility] 5 [place] [address] 10/30/2024 11:30 AM EDT Office Visit [facility] [address] [place] [address] [place] [address] Aarti Castillo, SHINGLE TRIMMER [address] [place] [address] [place] [address] documented as of this encounter Procedures Procedure Name Priority Date/Time Associated Diagnosis Comments HOME SLEEP TEST Routine 11/04/2022 8:25 AM EDT documented in this encounter Results * Home sleep test (11/04/2022 8:25 AM EDT) us Aarti Castillo [facility] ORDERABLES Maggi l Result documented in this encounter Visit Diagnoses Not on filedocumented in this encounter Care Teams Green Tire Inspector Relationship Specialty Start Date End Date Roc Steele MD [address] [place] [address] [place] [address] PCP - ACO Reach 09/22/22 06/29/23 Roc Steele MD [address] [place] [address] [place] [address] PCP - General Internal Medicine 09/28/22 Roc Steele MD [address] [place] [address] [place] [address] PCP - ACO Reach 08/30/23 Luis Felipe Dugan DO [address] [place] [address] [place] [address] Referring Physician Neurology 03/07/24 Raya Holt, RN Clinical Advocate Family Medicine 06/07/24 07/19/24 Gladis Laird LPN 07/19/24 documented as of this encounter
--- OUTSIDE RECORDS SUMMARY | 2024-10-03 14:55 | XMS_ITS | Encounter Summary ---
Author Organization [facility] Address [address] [place] [address] Care Team Providers Care Bottle House Quality Control Technician Name Role Phone Roc Steele MD Primary Care Provider [phone] Roc Steele MD Unavailable [phone] Luis Felipe Dugan DO Unavailable [phone] Raya Holt RN Unavailable [phone] Gladis Laird LPN Unavailable Unavailable Encounter Details Date Type Department Care Team (Late st Contact Info) Description 03/06/2024 Orders Only [facility] [place] [address]03 [facility] [address] [place] [address] Aarti Castillo, TRIMMING OPERATOR 112 [facility] 110 [place] [address] Social History Tobacco Use Types [...] often do you attend chur ch or alevism services? Never 11/25/2022 Do you [...] Recorded Patient Health Questionnaire-2 Score 0 07/06/2023 [facility] of Occupat ional Health - Occupational [...] Upcoming Encounters Date Type Department Care Team ([facility] st Contact Info) Description 10/10/2024 3:00 PM EDT Procedure Visit [facility] 112 [facility] 120 [place] [address] Alex Tam DPM 3006 [facility] 5 [place] [address] 10/30/2024 11:30 AM EDT Office Visit [facility] [address] [facility] 110 [place] [address] Aarti Castillo, TRIMMING OPERATOR 112 [facility] 110 [place] [address] documented as of this encounter Procedures Procedure Name Priority Date/Time Associated Diagnosis Comments EMG AND NERVE CONDUCTION STUDY Routine 07/28/2021 3:41 PM EDT documented in this encounter Results * EMG AND NERVE CONDUCTION STUDY (07/28/2021 3:41 PM EDT) Aarti Castillo TRIMMING OPERATOR NEUROLOGY ORDERABLES Final R esult documented in this encounter Visit Diagnoses Not on filedocumented in this encounter Additional Health Concerns Assessment Noted Time PHQ-9 Depression Total Score: 0 07/06/19 3:00 PM EST documented as of this encounter Care Teams Bottle House Quality Control Technician Relationship Specialty Start Date End Date Roc Steele MD [address] [facility] 110 [place] [address] PCP - General Internal Medicine 09/28/22 Roc Steele MD [address] [place] [address] [place] [address] PCP - ACO Reach 08/30/23 Luis Felipe Dugan DO [address] [facility] 110 [place] [address] Referring Physician Neurology 03/07/24 Raya Holt, RN Clinical Advocate Family Medicine 06/07/24 07/19/24 Gladis Laird LPN 07/19/24 documented as of this encounter
--- OUTSIDE RECORDS SUMMARY | 2024-10-03 14:55 | XMS_ITS | Encounter Summary ---
Author Organization [facility] Address [address] [place] [address] Care Team Providers Care Derrick Engineer Name Role Phone Roc Steele MD Primary Care Provider [phone] Roc Steele MD Unavailable [phone] Luis Felipe Dugan DO Unavailable [phone] Raya Holt RN Unavailable [phone] Gladis Laird LPN Unavailable Unavailable Encounter Details Date Type Department Care Team (Late st Contact Info) Description 05/20/2024 Abstract [facility] [address] [facility] 110 [place] [address] Roc Steele MD 112 [facility] 110 [place] [address] Social History Tobacco Use Types [...] 11/25/2022 How often do you attend chur [employer] or roman catholic services? Never 11/25/2022 Do you belong to any clubs o r organizations such as pentecostalism groups, unions, fraternal or athletic groups, or [...] Score 0 07/06/2023 [facility] of Occupat ionmt Health - Occupational Stress Questionnaire Answer Date [...] Upcoming Encounters Date Type Department Care Team ([facility] st Contact Info) Description 10/10/2024 3:00 PM EDT Procedure Visit [facility] 112 [facility] 120 [place] [address] Alex Tam DPM 3006 [facility] 5 [place] [address] 10/30/2024 11:30 AM EDT Office Visit [facility] [address] [facility] 110 [place] [address] Aarti Castillo, SENSORY SCIENTIST 112 [facility] 110 [place] [address] documented as of this encounter Visit Diagnoses Not on filedocumented in this encounter Additional Health Concerns Assessment Noted Time PHQ-9 Depression Total Score: 0 07/06/19 24 3:00 PM EST documented as of this encounter Care Teams Derrick Engineer Relationship Specialty Start Date End Date Roc Steele MD [address] [facility] 110 [place] [address] PCP - General Internal Medicine 09/28/22 Roc Steele MD [address] [facility] 110 [place] [address] PCP - ACO Reach 08/30/23 Luis Felipe Dugan DO [address] [facility] 110 [place] [address] Referring Physician Neurology 03/07/24 Raya Holt, RN Clinical Advocate Family Medicine 06/07/24 07/19/24 Gladis Laird LPN 07/19/24 documented as of this encounter
--- OUTSIDE RECORDS SUMMARY | 2024-10-03 14:55 | XMS_ITS | Clinical Summary ---
Author Organization [facility] Address [address] [place] [address] Care Team Providers Care Crab Steamer Name Role Phone Unavailable Primary Care Provider [...]
--- OUTSIDE RECORDS SUMMARY | 2024-10-03 14:55 | XMS_ITS | Encounter Summary ---
Author Organization [facility] Address [address] [place] [address] Care Team Providers Care Inserting Operator Name Role Phone Roc Steele MD Unavailable [phone] Roc Steele MD Primary Care Provider [phone] Roc Steele MD Unavailable [phone] Luis Felipe Dugan DO Unavailable [phone] Raya Holt RN Unavailable [phone] Gladis Laird LPN Unavailable Unavailable Encounter Details Date Type Department Care Team (Late st Contact Info) Description 11/23/2022 Orders Only [facility] [address] [facility] [address] [place] [address] A, Unknown Practice [address] [phone] Social History Tobacco Use Types Packs/Day Years [...] often do you attend chur ch or yarsanism services? Never 11/25/2022 Do you belong to any clubs o r organizations such as hindu groups, unions, fraternal or athletic groups, or [...] and heating? Not hard at all 11/25/2022 [facility] of Occupat ional Health - [...] EDT Procedure Visit [facility] 112 [facility] 120 [place] [address] Alex Tam DPM 8167 [facility] 5 [place] [address] 10/30/2024 11:30 AM EDT Office Visit [facility] [address] [place] [address] [place] [address] Aarti Castillo, BEEKEEPER [address] [place] [address] [place] [address] documented as of this encounter Procedures Procedure [...] on filedocumented in this encounter Care Teams Inserting Operator Relationship Specialty Start Date End Date Roc Steele MD [address] [facility] 110 [place] [address] PCP - ACO Reach 09/22/22 06/29/23 Roc Steele MD [address] [facility] 110 [place] [address] PCP - General Internal Medicine 09/28/22 Roc Steele MD [address] [place] [address] [place] [address] PCP - ACO Reach 08/30/23 Luis Felipe Dugan DO [address] [place] [address] [place] [address] Referring Physician Neurology 03/07/24 Raya Holt, RN Clinical Advocate Family Medicine 06/07/24 07/19/24 Gladis Laird LPN 07/19/24 documented as of this encounter
--- OUTSIDE RECORDS SUMMARY | 2024-10-03 14:55 | XMS_ITS | Encounter Summary ---
Author Organization [facility] Address [address] [place] [address] Care Team Providers Care Cma Or Lpn Name Role Phone Roc Steele MD Unavailable [phone] Roc Steele MD Primary Care Provider [phone] Roc Steele MD Unavailable [phone] Luis Felipe Dugan DO Unavailable [phone] Raya Holt RN Unavailable [phone] Gladis Laird LPN Unavailable Unavailable Encounter Details Date Type Department Care Team (Late st Contact Info) Description 12/07/2022 Abstract [facility] [address] [facility] 110 [place] [address] Roc Steele MD [address] [facility] 110 [place], [place] [address] Social History Tobacco Use Types Packs/Day Years [...] How often do you attend chur or yazidism services? Never 11/25/2022 Do you belong to any clubs o r organizations such as alevism groups, unions, fraternal or athletic groups, or [...] and heating? Not hard at all 11/25/2022 [facility] of Occupat ional Health - [...] Procedure Visit [facility] [address] [facility] 120 [place] [address] Alex Tam, DPM 3006 [facility] 5 [place] [address] 10/30/2024 11:30 AM EDT Office Visit [facility] [address] [facility] 110 [place] [address] Aarti Castillo WOODWIND INSTRUMENTS INSPECTOR [address] [facility] 110 [place] [address] documented as of this encounter Visit Diagnoses Not on filedocumented in this encounter Care Teams Cma Or Lpn Relationship Specialty Start Date End Date Roc Steele MD [address] [facility] 110 [place] [address] PCP - ACO Reach 09/22/22 06/29/23 Roc Steele MD [address] [facility] [address] [place] [address] PCP - General Internal Medicine 09/28/22 Roc Steele MD [address] [facility] [address] [place] [address] PCP - ACO Reach 08/30/23 Luis Felipe Dugan DO [address] [facility] 110 [place] [address] Referring Physician Neurology 03/07/24 Raya Holt, RN Clinical Advocate Family Medicine 06/07/24 07/19/24 Gladis Laird LPN 07/19/24 documented as of this encounter
--- OUTSIDE RECORDS SUMMARY | 2024-10-03 14:55 | XMS_ITS | Encounter Summary ---
Author Organization [facility] Address [address] [place] [address] Care Team Providers Care Plant Security Guard Name Role Phone Roc Steele MD Unavailable [phone] Roc Steele MD Primary Care Provider [phone] Roc Steele MD Unavailable [phone] Luis Felipe Dugan DO Unavailable [phone] Raya Holt RN Unavailable [phone] Gladis Laird LPN Unavailable Unavailable Encounter Details Date Type Department Care Team (Late st Contact Info) Description 12/25/2022 Abstract [facility] [address] [facility] [address] [place] [address] Josue Mayer, PT [address] [facility] [address] [place] [address] Social History Tobacco Use Types Packs/Day Years [...] often do you attend chur ch or jainism services? Never 11/25/2022 Do you belong to [...] and heating? Not hard at all 11/25/2022 [facility] of Occupat ional Health [...] [address] [facility] 120 [place] [address] Alex Tam DPM 3006 [facility] 5 [place] [address] 10/30/2024 11:30 AM EDT Office Visit [facility] [address] [facility] 110 [place] [address] Aarti Castillo DIE ATTACHING MACHINE TENDER [address] [facility] [address] [place] [address] documented as of this encounter Visit Diagnoses Not on filedocumented in this encounter Care Teams Plant Security Guard Relationship Specialty Start Date End Date Roc Steele MD [address] [facility] [address] [place] [address] PCP - ACO Reach 09/22/22 06/29/23 Roc Steele MD [address] [facility] [address] [place] [address] PCP - General Internal Medicine 09/28/22 Roc Steele MD [address] [facility] 110 [place] [address] PCP - ACO Reach 08/30/23 Luis Felipe Dugan DO [address] [facility] [address] [place] [address] Referring Physician Neurology 03/07/24 Raya Holt, RN Clinical Advocate Family Medicine 06/07/24 07/19/24 Gladis Laird LPN 07/19/24 documented as of this encounter
--- OUTSIDE RECORDS SUMMARY | 2024-10-03 14:55 | XMS_ITS | Encounter Summary ---
Author Organization [facility] Address [address] [place] [address] Care Team Providers Care Regenerator Operator Name Role Phone Roc Steele MD Primary Care Provider [phone] Roc Steele MD Unavailable [phone] Luis Felipe Dugan DO Unavailable [phone] Raya Holt RN Unavailable [phone] Gladis Laird LPN Unavailable Unavailable Encounter Details Date Type Department Care Team (Late st Contact Info) Description 06/04/2024 Abstract [facility] 112 [facility] 110 [place] [address] Roc Steele MD 112 [facility] 110 [place] [address] Social History Tobacco Use Types [...] 11/25/2022 How often do you attend chur [employer] or confucianist services? Never 11/25/2022 Do you belong to any clubs o r organizations such as sabianism groups, unions, fraternal or athletic groups, or [...] Recorded Patient Health Questionnaire-2 Score 0 07/06/2023 [facility] of Occupat ionok Health - Occupational Stress Questionnaire Answer Date [...] Upcoming Encounters Date Type Department Care Team ([facility] st Contact Info) Description 10/10/2024 3:00 PM EDT Procedure Visit [facility] 112 [facility] 120 [place] [address] Alex Tam DPM 3006 [facility] 5 [place] [address] 10/30/2024 11:30 AM EDT Office Visit [facility] 112 [facility] 110 [place] [address] Aarti Castillo, MERCHANDISE CLERK 112 [facility] 110 [place] [address] documented as of this encounter Visit Diagnoses Not on filedocumented in this encounter Additional Health Concerns Assessment Noted Time PHQ-9 Depression Total Score: 0 07/06/19 24 3:00 PM EST documented as of this encounter Care Teams Regenerator Operator Relationship Specialty Start Date End Date Roc Steele MD [address] [facility] 110 [place] [address] PCP - General Internal Medicine 09/28/22 Roc Steele MD [address] [facility] 110 [place] [address] PCP - ACO Reach 08/30/23 Luis Felipe Dugan DO [address] [facility] 110 [place] [address] Referring Physician Neurology 03/07/24 Raya Holt, RN Clinical Advocate Family Medicine 06/07/24 07/19/24 Gladis Laird LPN 07/19/24 documented as of this encounter
--- OUTSIDE RECORDS SUMMARY | 2024-10-03 14:55 | XMS_ITS | Encounter Summary ---
Author Organization [facility] Address [address] [place] [address] Care Team Providers Care Circus Laborer Name Role Phone Roc Steele MD Primary Care Provider [phone] Roc Steele MD Unavailable [phone] Luis Felipe Dugan DO Unavailable [phone] Gladis Laird LPN Unavailable Unavailable Encounter Details Date Type Department Care Team (Late st Contact Info) Description 07/23/2024 Abstract [facility] [address] [facility] 110 [place] [address] Roc Steele MD 112 [facility] 110 [place], [place] [address] Social History Tobacco Use Types Packs/Day Years [...] How often do you attend chur or christianity services? Never 11/25/2022 Do you belong to any clubs o r organizations such as religious groups, unions, fraternal or athletic groups, or [...] Recorded Patient Health Questionnaire-2 Score 0 07/11/2024 [facility] of Occupat ional Health - Occupational [...] PODIATRY 112 [facility] 120 [place] [address] Alex Tam DPM 3006 [facility] 5 [place] [address] 10/30/2024 11:30 AM EDT Office Visit [facility] 112 [facility] 110 [place] [address] Aarti Castillo NP 112 [facility] 110 [place], [place] [address] documented as of this encounter Visit Diagnoses Not on filedocumented in this encounter Additional Health Concerns Assessment Noted Time PHQ-9 Depression Total Score: 0 07/06/19 24 3:00 PM EST documented as of this encounter Care Teams Circus Laborer Relationship Specialty Start Date End Date Roc Steele MD [address] [facility] 110 [place] [address] PCP - General Internal Medicine 09/28/22 Roc Steele MD [address] [facility] 110 [place] [address] PCP - ACO Reach 08/30/23 Luis Felipe Dugan DO [address] [facility] 110 [place] [address] Referring Physician Neurology 03/07/24 Gladis Laird LPN 07/19/24 documented as of this encounter
--- OUTSIDE RECORDS SUMMARY | 2024-10-03 14:55 | XMS_ITS | Encounter Summary ---
Author Organization [facility] Address [address] [place] [address] Care Team Providers Care Shoe Laster Name Role Phone Roc Steele MD Unavailable [phone] Roc Steele MD Primary Care Provider [phone] Roc Steele MD Unavailable [phone] Luis Felipe Dugan DO Unavailable [phone] Raya Holt RN Unavailable [phone] Gladis Laird LPN Unavailable Unavailable Encounter Details Date Type Department Care Team (Late st Contact Info) Description 12/07/2022 Abstract [facility] [address] [facility] 110 [place] [address] Roc Steele MD [address] [facility] 110 [place], [place] [address] Social History Tobacco Use Types Packs/Day Years [...] How often do you attend chur or amish services? Never 11/25/2022 Do you belong to any clubs o r organizations such as sikh groups, unions, fraternal or athletic groups, or [...] and heating? Not hard at all 11/25/2022 [facility] of Occupat ional Health - [...] Procedure Visit [facility] PODIATRY [address] [facility] 120 [place] [address] Alex Tam, DPM 3006 [facility] 5 [place] [address] 10/30/2024 11:30 AM EDT Office Visit [facility] [address] [facility] 110 [place] [address] Aarti Castillo BROOM BUNDLER [address] [facility] 110 [place] [address] documented as of this encounter Visit Diagnoses Not on filedocumented in this encounter Care Teams Shoe Laster Relationship Specialty Start Date End Date Roc Steele MD [address] [facility] 110 [place] [address] PCP - ACO Reach 09/22/22 06/29/23 Roc Steele MD [address] [facility] [address] [place] [address] PCP - General Internal Medicine 09/28/22 Roc Steele MD [address] [facility] [address] [place] [address] PCP - ACO Reach 08/30/23 Luis Felipe Dugan DO [address] [facility] [address] [place] [address] Referring Physician Neurology 03/07/24 Raya Holt, RN Clinical Advocate Family Medicine 06/07/24 07/19/24 Gladis Laird LPN 07/19/24 documented as of this encounter
--- OUTSIDE RECORDS SUMMARY | 2024-10-03 14:55 | XMS_ITS | Encounter Summary ---
Author Organization [facility] Address [address] [place] [address] Care Team Providers Care Installation Helper Name Role Phone Roc Steele MD Primary Care Provider [phone] Roc Steele MD Unavailable [phone] Luis Felipe Dugan DO Unavailable [phone] Raya Holt RN Unavailable [phone] Gladis Laird LPN Unavailable Unavailable Encounter Details Date Type Department Care Team (Late st Contact Info) Description 05/07/2024 Abstract [facility] 112 [facility] 110 [place] [address] Roc Steele MD 112 [facility] 110 [place] [address] Social History Tobacco Use Types [...] 11/25/2022 How often do you attend chur [employer] or rastafari services? Never 11/25/2022 Do you belong to [...] Recorded Patient Health Questionnaire-2 Score 0 07/06/2023 [facility] of Occupat ionfl Health - Occupational Stress Questionnaire Answer Date [...] Upcoming Encounters Date Type Department Care Team ([facility] st Contact Info) Description 10/10/2024 3:00 PM EDT Procedure Visit [facility] 112 [facility] 120 [place] [address] Alex Tam DPM 3006 [facility] 5 [place] [address] 10/30/2024 11:30 AM EDT Office Visit [facility] 112 [facility] 110 [place] [address] Aarti Castillo, BLUE PRINTS TRIMMER 112 [facility] 110 [place] [address] documented as of this encounter Visit Diagnoses Not on filedocumented in this encounter Additional Health Concerns Assessment Noted Time PHQ-9 Depression Total Score: 0 07/06/19 24 3:00 PM EST documented as of this encounter Care Teams Installation Helper Relationship Specialty Start Date End Date Roc Steele MD [address] [facility] 110 [place] [address] PCP - General Internal Medicine 09/28/22 Roc Steele MD [address] [facility] 110 [place] [address] PCP - ACO Reach 08/30/23 Luis Felipe Dugan DO [address] [facility] 110 [place] [address] Referring Physician Neurology 03/07/24 Raya Holt, RN Clinical Advocate Family Medicine 06/07/24 07/19/24 Gladis Laird LPN 07/19/24 documented as of this encounter
--- OUTSIDE RECORDS SUMMARY | 2024-10-03 14:55 | XMS_ITS | Encounter Summary ---
Author Organization [facility] Address [address] [place] [address] Care Team Providers Care Body Engineer Name Role Phone Roc Steele MD Primary Care Provider [phone] Roc Steele MD Unavailable [phone] Luis Felipe Dugan DO Unavailable [phone] Raya Holt RN Unavailable [phone] Gladis Laird LPN Unavailable Unavailable Encounter Details Date Type Department Care Team (Late st Contact Info) Description 05/21/2024 Abstract [facility] 112 [facility] 110 [place] [address] Roc Steele MD 112 [facility] 110 [place] [address] Social History Tobacco Use Types [...] 11/25/2022 How often do you attend chur [employer] or hoahaoism services? Never 11/25/2022 Do you belong to [...] Patient Health Questionnaire-2 Score 0 07/06/2023 [facility] of Occupat ionnm Health - [...] Upcoming Encounters Date Type Department Care Team ([facility] st Contact Info) Description 10/10/2024 3:00 PM EDT Procedure Visit [facility] 112 [facility] 120 [place] [address] Alex Tam DPM 3006 [facility] 5 [place] [address] 10/30/2024 11:30 AM EDT Office Visit [facility] 112 [facility] 110 [place] [address] Aarti Castillo, LIGHTOUT EXAMINER 112 [facility] 110 [place] [address] documented as of this encounter Visit Diagnoses Not on filedocumented in this encounter Additional Health Concerns Assessment Noted Time PHQ-9 Depression Total Score: 0 07/06/19 24 3:00 PM EST documented as of this encounter Care Teams Body Engineer Relationship Specialty Start Date End Date Roc Steele MD [address] [facility] 110 [place] [address] PCP - General Internal Medicine 09/28/22 Roc Steele MD [address] [facility] 110 [place] [address] PCP - ACO Reach 08/30/23 Luis Felipe Dugan DO [address] [facility] 110 [place] [address] Referring Physician Neurology 03/07/24 Raya Holt, RN Clinical Advocate Family Medicine 06/07/24 07/19/24 Gladis Laird LPN 07/19/24 documented as of this encounter
--- OUTSIDE RECORDS SUMMARY | 2024-10-03 14:55 | XMS_ITS ---
Author Organization [facility] Address [address] [place] [address] Care Team Providers Care Final Installer Inspector Name Role Phone Roc Steele MD Primary Care Provider [phone] Roc Steele MD Unavailable [phone] Luis Felipe Dugan DO Unavailable [phone] Gladis Laird LPN Unavailable Unavailable Chronic Care [...]
--- OUTSIDE RECORDS SUMMARY | 2024-10-03 14:55 | XMS_ITS | Encounter Summary ---
Author Organization [facility] Address [address] [place] [address] Care Team Providers Care Certified Hand Therapist Name Role Phone Roc Steele MD Primary Care Provider [phone] oRc Steele MD Unavailable [phone] Luis Felipe Dugan DO Unavailable [phone] Raya Holt RN Unavailable [phone] Gladis Laird LPN Unavailable Unavailable Encounter Details Date Type Department Care Team (Late st Contact Info) Description 05/16/2024 Abstract [facility] [address] [facility] 110 [place] [address] Roc Steele MD 112 [facility] 110 [place] [address] Social History Tobacco Use Types [...] 11/25/2022 How often do you attend chur Momox or rastafari services? Never 11/25/2022 Do you belong to any clubs o r organizations such as jewish groups, unions, fraternal or athletic groups, or [...] Score 0 07/06/2023 [facility] of Occupat ionmt Health - Occupational Stress [...] P[facility] 112 [facility] 120 [place] [address] Alex Tam DPM 3006 [facility] 5 [place] [address] 10/30/2024 11:30 AM EDT Office Visit [facility] [address] [facility] 110 [place] [address] Aarti Castillo, MATERIALS HANDLING COORDINATOR 112 [facility] 110 [place] [address] documented as of this encounter Visit Diagnoses Not on filedocumented in this encounter Additional Health Concerns Assessment Noted Time PHQ-9 Depression Total Score: 0 07/06/19 24 3:00 PM EST documented as of this encounter Care Teams Certified Hand Therapist Relationship Specialty Start Date End Date Roc Steele MD [address] [facility] 110 [place] [address] PCP - General Internal Medicine 09/28/22 Roc Steele MD [address] [facility] 110 [place] [address] PCP - ACO Reach 08/30/23 Luis Felipe Dugan DO [address] [facility] 110 [place] [address] Referring Physician Neurology 03/07/24 Raya Holt, RN Clinical Advocate Family Medicine 06/07/24 07/19/24 Gladis Laird LPN 07/19/24 documented as of this encounter
--- OUTSIDE RECORDS SUMMARY | 2024-10-03 14:55 | XMS_ITS | Encounter Summary ---
Author Organization [facility] Address [address] [place] [address] Care Team Providers Care Market Specialist Name Role Phone Roc Steele MD Unavailable [phone] Roc Steele MD Primary Care Provider [phone] Roc Steele MD Unavailable [phone] Luis Felipe Dugan DO Unavailable [phone] Raya Holt RN Unavailable [phone] Gladis Laird LPN Unavailable Unavailable Encounter Details Date Type Department Care Team (Late st Contact Info) Description 12/02/2022 Orders Only [facility] [address] [place] [address] [place] [address] A, Unknown Practice [address] [place] [phone] Social History Tobacco Use Types Packs/Day Years [...] often do you attend chur ch or caodaism services? Never 11/25/2022 Do you belong to [...] and heating? Not hard at all 11/25/2022 [facility] of Occupat ional Health - Occupational Stress [...] Procedure Visit [facility] PODIAT[facility] 112 [facility] 120 [place] [address] Alex Tam DPM 3006 [facility] 5 [place] [address] 10/30/2024 11:30 AM EDT Office Visit [facility] 112 [facility] 110 [place] [address] Aarti Castillo NP 112 [facility] 110 [place] [address] documented as of this encounter Procedures Procedure [...] on filedocumented in this encounter Care Teams Market Specialist Relationship Specialty Start Date End Date Roc Steele MD [address] [facility] 110 [place] [address] PCP - ACO Reach 09/22/22 06/29/23 Roc Steele MD [address] [facility] 110 [place] [address] PCP - General Internal Medicine 09/28/22 Roc Steele MD [address] [facility] 110 [place] [address] PCP - ACO Reach 08/30/23 Luis Felipe Dugan DO [address] [facility] 110 [place] [address] Referring Physician Neurology 03/07/24 Raya Holt, RN Clinical Advocate Family Medicine 06/07/24 07/19/24 Gladis Laird LPN 07/19/24 documented as of this encounter
--- OUTSIDE RECORDS SUMMARY | 2024-10-03 14:55 | XMS_ITS | Encounter Summary ---
Author Organization [facility] Address [address] [place] [address] Care Team Providers Care Keyliner Name Role Phone Roc Setele MD Primary Care Provider [phone] Roc Steele MD Unavailable [phone] Luis Felipe Dugan DO Unavailable [phone] Raya Holt RN Unavailable [phone] Gladis Laird LPN Unavailable Unavailable Encounter Details Date Type Department Care Team (Late st Contact Info) Description 05/17/2024 Orders Only [facility] [address] [place] 110 [place] [address] Unallocated, Noms Provider, [address] [place] [address] Social History Tobacco Use Types [...] often do you attend chur ch or uatsdin services? Never 11/25/2022 Do you belong to any clubs o r organizations such as congregation groups, unions, fraternal or athletic groups, or [...] Recorded Patient Health Questionnaire-2 Score 0 07/06/2023 [facility] of Occupat ional Health - Occupational [...] Upcoming Encounters Date Type Department Care Team ([facility] st Contact Info) Description 10/10/2024 3:00 PM EDT Procedure Visit [facility] 112 [facility] 120 [place] [address] Alex Tam DPM 3006 [facility] 5 [place] [address] 10/30/2024 11:30 AM EDT Office Visit [facility] [address] [facility] 110 [place] [address] Aarti Castillo, LINEN CHECKER 112 [facility] 110 [place] [address] documented as of this encounter Procedures Procedure [...] documented as of this encounter Care Teams Keyliner Relationship Specialty Start Date End Date Roc Steele MD [address] [place] 110 [place] [address] PCP - General Internal Medicine 09/28/22 Roc Steele MD [address] [place] 110 [place] [address] PCP - ACO Reach 08/30/23 Luis Felipe Dugan DO [address] [place] 110 [place] [address] Referring Physician Neurology 03/07/24 Raya Holt, RN Clinical Advocate Family Medicine 06/07/24 07/19/24 Gladis Laird LPN 07/19/24 documented as of this encounter
--- OUTSIDE RECORDS SUMMARY | 2024-10-03 14:55 | XMS_ITS | Encounter Summary ---
Author Organization [facility] Address [address] [place] [address] Care Team Providers Care Gas And Oil Checker Name Role Phone Roc Steele MD Primary Care Provider [phone] Roc Steele MD Unavailable [phone] Luis Felipe Dugan DO Unavailable [phone] Gladis Laird LPN Unavailable Unavailable Encounter Details Date Type Department Care Team (Late st Contact Info) Description 07/24/2024 Abstract [facility] [address] [facility] 110 [place] [address] Roc Steele MD 112 [facility] 110 [place], [place] [address] Social History Tobacco Use Types Packs/Day Years [...] How often do you attend chur or synagogue services? Never 11/25/2022 Do you [...] Recorded Patient Health Questionnaire-2 Score 0 07/11/2024 [facility] of Occupat ional Health - Occupational Stress [...] EDT Procedure Visit [facility] PODIAT[facility] 112 [facility] 120 [place] [address] Alex Tam DPM 3006 [facility] 5 [place] [address] 10/30/2024 11:30 AM EDT Office Visit [facility] 112 [facility] 110 [place] [address] Aarti Castillo NP 112 [facility] 110 [place], [place] [address] documented as of this encounter Visit Diagnoses Not on filedocumented in this encounter Additional Health Concerns Assessment Noted Time PHQ-9 Depression Total Score: 0 07/06/19 24 3:00 PM EST documented as of this encounter Care Teams Gas And Oil Checker Relationship Specialty Start Date End Date Roc Steele MD [address] [facility] 110 [place] [address] PCP - General Internal Medicine 09/28/22 Roc Steele MD [address] [facility] 110 [place] [address] PCP - ACO Reach 08/30/23 Luis Felipe Dugan DO [address] [facility] 110 [place] [address] Referring Physician Neurology 03/07/24 Gladis Laird LPN 07/19/24 documented as of this encounter
--- OUTSIDE RECORDS SUMMARY | 2024-10-03 14:56 | XMS_ITS | Encounter Summary ---
Author Organization [facility] Address [address] [place] [address] Care Team Providers Care Urgent Care Physician Assistant Name Role Phone Roc Steele MD Primary Care Provider [phone] Roc Steele MD Unavailable [phone] Luis Felipe Dugan DO Unavailable [phone] Gladis Laird LPN Unavailable Unavailable Encounter Details Date Type Department Care Team (Late st Contact Info) Description 08/19/2024 Abstract [facility] [address] [facility] 110 [place] [address] Roc Steele MD 112 [facility] 110 [place], [place] [address] Social History Tobacco Use Types Packs/Day Years [...] How often do you attend chur or baptism services? Never 11/25/2022 Do you belong to any clubs o r organizations such as yazidism groups, unions, fraternal or athletic groups, or [...] Recorded Patient Health Questionnaire-2 Score 0 08/19/2024 [facility] of Occupat ional Health - Occupational [...] Upcoming Encounters Date Type Department Care Team ([facility] st Contact Info) Description 10/10/2024 3:00 PM EDT Procedure Visit [facility]ODI[facility] 112 [facility] 120 [place] [address] Alex aTm DPM 3933 [facility] 5 [place] [address] 10/30/2024 11:30 AM EDT Office Visit [facility] [address] [facility] 110 [place] [address] Aarti Castillo, NETWORK CONSULTANT [address] [facility] 110 [place] [address] documented as of this encounter Visit Diagnoses Not on filedocumented in this encounter Additional Health Concerns Assessment Noted Time PHQ-9 Depression Total Score: 0 07/06/19 24 3:00 PM EST documented as of this encounter Care Teams Urgent Care Physician Assistant Relationship Specialty Start Date End Date Roc Steele MD [address] [facility] 110 [place] [address] PCP - General Internal Medicine 09/28/22 Roc Steele MD [address] [facility] 110 [place] [address] PCP - ACO Reach 08/30/23 Luis Felipe Dugan DO [address] [facility] 110 [place] [address] Referring Physician Neurology 03/07/24 Gladis Laird LPN 07/19/24 documented as of this encounter
--- OUTSIDE RECORDS SUMMARY | 2024-10-03 14:56 | XMS_ITS | Encounter Summary ---
Author Organization [facility] Address [address] [place] [address] Phone Care Team Providers Care Fund Accountant Name Role Phone Roc Steele MD Primary Care Provider [phone] Encounter Details Date Type Department Care Team (Late st Contact Info) Description 09/19/2024 Telephone [facility] [address] [address] Hina Bangura RN Social History [...] cm2 LV A4C EF 42.7 Narrative [facility] 703 [facility], [address], [place] [id number] TRANSTHORACIC ECHOCARDIOGRAM REPORT Patient Name: USHA Mahnaz Deal Physician: [id number] David Castle MD, [facility] Study Date: 09/18/2024 Ordering Provider: [id number] RC KERN MRN/PID: [id number] Fellow: Nurse: Date of /Age: 7 1945 / 78 Yacht Hand: Viry ely RDCS, RVT Gender Assigned at F Additional Staff: : Height: 162.56 cm Admit Date: Weight: 122.02 kg Admission Status: Outpatient BSA / BMI: 2.22 m2 / 46.17 Department Location: [facility] kg/m2 [place] Blood Pressure: 124 /86 mmHg Study Type: TRANSTHORACIC ECHO (TTE) COMPLETE Diagnosis/ICD: Supraventricular tachycardia-I47.1; Abnormal electrocardiogram [ECG] [EKG]-R94.31; Palpitations-R00.2 Indication: Edema, HTN, Hyperlipidemia, Carotid Stenosis, CARO, CKD-Stage III, Morbid Obesity CPT Codes: Echo Complete w Full Doppler-[id number] Study Detail: The following Echo studies were [...] (0.6-0.9m/s) AORTA: Asc Ao Diam 2.66 cm [id number] David Castle MD, FACC Electronically signed on [...] Description 2024 2:15 PM EDT Office Visit [facility] 703 [facility] 250 [place] [address] Rc Kern MD 917 [facility] 130 [place] [address] documented as of this encounter Visit Diagnoses Not on filedocumented in this encounter Additional Health Concerns Assessment Noted Time A fall risk assessment has been complete d for the patient 07/15/2024 11:21 AM EDT documented as of this encounter Care Teams Fund Accountant Relationship Specialty Start Date End Date Roc Steele MD 112 [facility] 110 [place] [address] PCP - General 10/04/22 documented as of this encounter
--- OUTSIDE RECORDS SUMMARY | 2024-10-03 14:56 | XMS_ITS | Encounter Summary ---
Author Organization [facility] Address [address] [place] [address] Phone Care Team Providers Care Shellfish Sorter Name Role Phone Roc Steele MD Primary Care Provider [phone] Reason for Visit * Reason Onset Date Comments Error (VOID this visit) 09/19/2024 Encounter Details Date Type Department Care Team ([facility] Contact Info) Description 09/19/2024 Telephone [facility] 703 [facility] 250 [place] [address] Hina Bangura RN Error (VOID [...] Description 2024 2:15 PM EDT Office Visit [facility] 703 [facility] 250 [place] [address] Amber Hawley MD [address] [facility] 130 [place], [place] [address] documented as of this encounter Visit Diagnoses Not on filedocumented in this encounter Additional Health Concerns Assessment Noted Time A fall risk assessment has been complete d for the patient 07/15/2024 11:21 AM EDT documented as of this encounter Care Teams Shellfish Sorter Relationship Specialty Start Date End Date Roc Steele MD [address] [place] [id number] PCP - General 10/04/22 documented as of this encounter
--- OUTSIDE RECORDS SUMMARY | 2024-10-03 14:56 | XMS_ITS | Encounter Summary ---
Author Organization [facility] Address [address] [place] [address] Care Team Providers Care Impression Printer Name Role Phone Roc Steele MD Primary Care Provider [phone] Roc Steele MD Unavailable [phone] Luis Felipe Dugan DO Unavailable [phone] Gladis Laird LPN Unavailable Unavailable Encounter Details Date Type Department Care Team (Late st Contact Info) Description 08/20/2024 Abstract [facility] [address] [facility] 110 [place] [address] Roc Steele MD 112 [facility] 110 [place], [place] [address] Social History Tobacco Use Types Packs/Day Years [...] Recorded Patient Health Questionnaire-2 Score 0 08/19/2024 [facility] of Occupat ional Health [...] Upcoming Encounters Date Type Department Care Team ([facility] st Contact Info) Description 10/10/2024 3:00 PM EDT Procedure Visit [facility] PODIAT[facility] 112 [facility] 120 [place] [address] Alex Tam DPM 3006 [facility] 5 [place] [address] 10/30/2024 11:30 AM EDT Office Visit [facility] 112 [facility] 110 [place] [address] Aarti Castillo NP 112 [facility] 110 [place], [place] [address] documented as of this encounter Visit Diagnoses Not on filedocumented in this encounter Additional Health Concerns Assessment Noted Time PHQ-9 Depression Total Score: 0 07/06/19 24 3:00 PM EST documented as of this encounter Care Teams Impression Printer Relationship Specialty Start Date End Date Roc Steele MD [address] [facility] 110 [place] [address] PCP - General Internal Medicine 09/28/22 Roc Steele MD [address] [facility] 110 [place] [address] PCP - ACO Reach 08/30/23 Luis Felipe Dugan DO [address] [facility] 110 [place] [address] Referring Physician Neurology 03/07/24 Gladis Laird LPN 07/19/24 documented as of this encounter
--- OUTSIDE RECORDS SUMMARY | 2024-10-03 14:56 | XMS_ITS | Encounter Summary ---
Author Organization [facility] Address [address] [place] [address] Care Team Providers Care Animal Control Supervisor Name Role Phone Roc Steele MD Primary Care Provider [phone] Roc Steele MD Unavailable [phone] Luis Felipe Dugan DO Unavailable [phone] Gladis Laird LPN Unavailable Unavailable Encounter Details Date Type Department Care Team (Late st Contact Info) Description 10/01/2024 Abstract [facility] [address] [facility] 110 [place] [address] Roc Steele MD 112 [facility] 110 [place], [place] [address] Social History Tobacco Use Types Packs/Day Years [...] How often do you attend chur or anabaptism services? Never 11/25/2022 Do you belong to [...] Recorded Patient Health Questionnaire-2 Score 0 08/19/2024 [facility] of Occupat ional Health - [...] EDT Procedure Visit [facility] PODIAT[facility] 112 [facility] 120 [place] [address] Alex Tam DPM 3006 [facility] 5 [place] [address] 10/30/2024 11:30 AM EDT Office Visit [facility] 112 [facility] 110 [place] [address] Aarti Castillo NP 112 [facility] 110 [place], [place] [address] documented as of this encounter Visit Diagnoses Not on filedocumented in this encounter Additional Health Concerns Assessment Noted Time PHQ-9 Depression Total Score: 0 07/06/19 24 3:00 PM EST documented as of this encounter Care Teams Animal Control Supervisor Relationship Specialty Start Date End Date Roc Steele MD [address] [facility] 110 [place] [address] PCP - General Internal Medicine 09/28/22 Roc Steele MD [address] [facility] 110 [place] [address] PCP - ACO Reach 08/30/23 Luis Felipe Dugan DO [address] [facility] 110 [place] [address] Referring Physician Neurology 03/07/24 Gladis Laird LPN 07/19/24 documented as of this encounter
--- OUTSIDE RECORDS SUMMARY | 2024-10-03 14:56 | XMS_ITS | Encounter Summary ---
Author Organization [facility] Address [address] [place] [address] Care Team Providers Care Fence Builder Name Role Phone Roc Steele MD Primary Care Provider [phone] Roc Steele MD Unavailable [phone] Luis Felipe Dugan DO Unavailable [phone] Gladis Laird LPN Unavailable Unavailable Encounter Details Date Type Department Care Team (Late st Contact Info) Description 09/18/2024 Abstract [facility] [address] [facility] 110 [place] [address] Roc Steele MD 112 [facility] 110 [place], [place] [address] Social History Tobacco Use Types Packs/Day Years [...] How often do you attend chur or anabaptist services? Never 11/25/2022 Do you [...] place to sleep or slept in a fci (including now)? No 11/25/2022 Comments Unknown Sex and Gender Information Value Date Recorded Sex Assigned at Not on file Legal Sex Female 7:20 PM EDT Gender Identity Not on file Sexual Orientation Not on file documented as of this encounter Plan of Treatment Upcoming Encounters Date Type Department Care Team ([facility] st Contact Info) Description 10/10/2024 3:00 PM EDT Procedure Visit [facility] PODI[facility] 112 [facility] 120 [place] [address] Alex Tam DPM 3006 [facility] 5 [place] [address] 10/30/2024 11:30 AM EDT Office Visit [facility] 112 [facility] 110 [place] [address] Aarti Castillo NP 112 [facility] 110 [place], [place] [address] documented as of this encounter Visit Diagnoses Not on filedocumented in this encounter Additional Health Concerns Assessment Noted Time PHQ-9 Depression Total Score: 0 07/06/19 24 3:00 PM EST documented as of this encounter Care Teams Fence Builder Relationship Specialty Start Date End Date Roc Steele MD [address] [facility] 110 [place] [address] PCP - General Internal Medicine 09/28/22 Roc Steele MD [address] [facility] 110 [place] [address] PCP - ACO Reach 08/30/23 Luis Felipe Dugan DO [address] [facility] 110 [place] [address] Referring Physician Neurology 03/07/24 Gladis Laird LPN 07/19/24 documented as of this encounter
--- OUTSIDE RECORDS SUMMARY | 2024-10-03 14:56 | XMS_ITS | Encounter Summary ---
Author Organization [facility] Address [address] [place] [address] Phone Care Team Providers Care Pumper Brewery Name Role Phone Roc Steele MD Primary Care Provider [phone] Encounter Details Date Type Department Care Team [...] EDT Office Visit [facility] 703 [facility] 250 [place] [address] Amber Hawley MD 917 [facility] 130 [place] [address] documented as of this encounter Visit Diagnoses Not on filedocumented in this encounter Additional Health Concerns Assessment Noted Time A fall risk assessment has been complete d for the patient 07/15/2024 11:21 AM EDT documented as of this encounter Care Teams Pumper Brewery Relationship Specialty Start Date End Date Roc Steele MD 112 [facility] 110 [place] [address] PCP - General 10/04/22 documented as of this encounter
--- OUTSIDE RECORDS SUMMARY | 2024-10-03 14:56 | XMS_ITS | Encounter Summary ---
Author Organization [facility] Address [address] [place] [address] Phone Care Team Providers Care Reconnaissance Man Name Role Phone Roc Steele MD Primary Care Provider Encounter Details Date Type Department Care Team (Late st Contact Info) Description 07/03/2024 Scanned Document [facility] [address] [place] [phone] Scanning, Generic Provider Social History Tobacco Use [...] Description 2024 2:15 PM EDT Office Visit [facility] 703 [facility] 250 [place] [address] Amber Hawley MD 917 [facility] 130 [place] [address] documented as of this encounter Visit Diagnoses Not on filedocumented in this encounter Care Teams Reconnaissance Man Relationship Specialty Start Date End Date Roc Steele MD 112 [facility] 110 [place] [address] PCP - General 10/04/22 documented as of this encounter
--- OUTSIDE RECORDS SUMMARY | 2024-10-03 14:56 | XMS_ITS | Encounter Summary ---
Author Organization [facility] Address [address] [place] [address] Care Team Providers Care Clinical Trial Data Manager Name Role Phone Roc Steele MD Primary Care Provider [phone] Roc Steele MD Unavailable [phone] Luis Felipe Dugan DO Unavailable [phone] Gladis Laird LPN Unavailable Unavailable Encounter Details Date Type Department Care Team (Late st Contact Info) Description 08/20/2024 Abstract [facility] 110 [place] [address] Roc Steele MD 112 [facility] 110 [place], [place] [id number] Social History Tobacco Use Types Packs/Day Years [...] Upcoming Encounters Date Type Department Care Team ([facility] st Contact Info) Description 10/10/2024 3:00 PM EDT Procedure Visit [facility] 112 [facility] 120 [place] [address] Alex Tam DPM 3006 [facility] 5 [place] [address] 10/30/2024 11:30 AM EDT Office Visit [facility] 112 [facility] 110 [place] [phone] Aarti Castillo NP 112 [facility] 110 [place], [place] [id number] documented as of this encounter Visit Diagnoses Not on filedocumented in this encounter Additional Health Concerns Assessment Noted Time PHQ-9 Depression Total Score: 0 07/06/19 24 3:00 PM EST documented as of this encounter Care Teams Clinical Trial Data Manager Relationship Specialty Start Date End Date Roc Steele MD [address] [facility] 110 [place] [address] PCP - General Internal Medicine 09/28/22 Roc Steele MD [address] [facility] 110 [place] [address] PCP - ACO Reach 08/30/23 Luis Felipe Dugan DO [address] [facility] 110 [place] [address] Referring Physician Neurology 03/07/24 Gladis Laird LPN 07/19/24 documented as of this encounter
--- OUTSIDE RECORDS SUMMARY | 2024-10-03 14:56 | XMS_ITS | Clinical Summary ---
Author Organization [facility] Address [address] [place] [address] Phone Care Team Providers Care Outpatient Coordinator Name Role Phone Roc Steele MD Primary Care Provider [phone] Allergies Active Allergy Reactions Criticality Noted Date Comments Moxifloxacin Angioedema 07/15/2024 Ciprofloxacin Unknown 07/15/2024 Sulfa (Sulfonamide Antibiotics) Unknown 06/29 Medications HYDROcodone-acetamin ophen ([place]) 5-325 mg tablet Take 1 tablet by [...] Description 09/19/2024 1:00 PM EDT Ancillary Procedure [address] [phone] Paroxysmal supraventricular tachycardia; Abnormal EKG; Lightheadedness; Chest discomfort; Palpitations 09/19/2024 11:24 AM EDT - 09/19/2024 11:59 PM EDT Hospital Encounter [address] [phone] Discharge Disposition: Home 09/19/2024 11:24 AM EDT - 09/19/2024 11:59 PM EDT Hospital Encounter [address] [phone] Discharge Disposition: Home 09/19/2024 Travel 09/19/[address] [phone] Hina Bangura RN 09/19/[address] [address] Hina Bangura RN Error (VOID this visit) 09/18/2024 10:16 AM EDT - 09/18/2024 11:59 PM EDT Hospital Encounter [address] [phone] Discharge Disposition: Home 09/18/2024 10:16 AM EDT - 09/18/2024 11:59 PM EDT Hospital Encounter [address] [phone] Discharge Disposition: Home 09/18/2024 10:16 AM EDT - 09/18/2024 11:59 PM EDT Hospital Encounter [address] [phone] Paroxysmal supraventricular tachycardia; Abnormal EKG; Palpitations Discharge Disposition: Home 09/18/2024 10:15 AM EDT Hospital Encounter [address] [phone] Lightheadedness; Chest discomfort; Palpitations; Mixed hyperlipidemia Discharge Disposition: Home 09/18/2024 Travel 07/15/2024 11:15 AM EDT Office Visit [address] [phone] Rc Kern MD Encounter to establish care with new doctor; Paroxysmal supraventricular tachycardia; Abnormal EKG; Lightheadedness; Chest discomfort; Palpitations; Primary hypertension; Stenosis of carotid artery, unspecified laterality; Mixed hyperlipidemia; Stage 3a chronic kidney disease (Multi); Gastroesophageal reflux disease without esophagitis; At high risk for falls; Uses roller walker; Severe obesity (BMI >= 40) (Multi); Never smoked cigarettes 07/15/2024 Travel 07/03/2024 Scanned Document [facility] [address] [place] [address] Scanning, Generic Provider from Last [...] Description 2024 2:15 PM EDT Office Visit [facility] [address] [facility] 250 [place] [address] Rc Kern MD 917 [facility] 130 [place] [address] Health Maintenance Due Date Last Done Comments [...] Sigmoidoscopy Discontinued Medical Devices Implanted Type Area Fiberglass Ski Maker Device Identifier Shelf Expiration Date Model / Serial / Lot Screw, Low Profile Hex, 6.5 X 15 Mm Case [id number] Implanted:Qty: 1 on 01/29/2020 by Micah Bird MD Implant Right: Hip HELENAAudanika 06/30/2023 [id number] / / 5MM Description:Converted from [facility]. Please see archived information for full log information. Screw, Low Profile Hex, 6.5 X 25 Mm Case [id number] Implanted:Qty: 1 on 01/29/2020 by Micah Bird MD Implant Right: Hip [employer] 06/01/2024 [id number] / / 2RGE Description:Converted from [facility]. Please see archived information for full log information. Head, Femur V40 36mm +2.5mm Biolox Delta Case [id number] Implanted:Qty: 1 on 01/29/2020 by Micah Bird MD Joint Right: Hip [employer]LE[employer] GOLD[employer] 11/29/2024 [id number] / / [id number] Description:Converted from [facility]. Please see archived information for full log information. Stem, Femur 132d Sz 5 Accolade Ii Case [id number] Implanted:Qty: 1 on 01/29/2020 by Micah Bird MD Joint Right: Hip [employer] 09/29/2024 [id number] / / [id number] Description:Converted from [facility]. Please see archived information for full log information. Shell, Trident Ii, Clusterhole, [place] 52e Case [id number] Implanted:Qty: 1 on 01/29/2020 by Micah Bird MD Joint Right: Hip [employer] 06/30/2023 [id number] / / [id number] Description:Converted from [facility]. Please see archived information for full log information. Liners, Poly 36 X 10 D Trid Crossfire E Case [id number] Implanted:Qty: 1 on 01/29/2020 by Micah Bird [...] David Castle 09/19/2024 3:00 PM Dictation workstation: [id number] Narrative 09/19/2024 3:00 PM EDT Interpreted By: David Castle and Jett Inman STUDY: MYOCARDIAL PERFUSION STRESS TEST WITH LEXISCAN Performing facility: [facility], [address] [place] [address], [address], [address] Provider: Rc Kern MD, FACC PCP: [...] Denies smoking. COMPARISON: No comparison. ACCESSION NUMBER(S): [id number] ORDERING CLINICIAN: RC KERN TECHNIQUE: TWO DAY [...] TEST WITH LEXISCAN Performing facility: [facility], [address] [place] [address], [address], [address] Provider: Rc Kern MD, FACC PCP: [...] Denies smoking. COMPARISON: No comparison. ACCESSION NUMBER(S): [id number] ORDERING CLINICIAN: RC KERN TECHNIQUE: TWO DAY [...] David Castle 09/19/2024 3:00 PM Dictation workstation: [id number] us Rc Kern MD CV STRESS PROCEDURES [...] Narrative SYNGO - 09/18/2024 6:10 PM EDT [address], [address], [place] [address] TRANSTHORACIC ECHOCARDIOGRAM REPORT Patient Name: USHA WALKER Reading Physician: [id number] David Castle MD, [facility] Study Date: 09/18/2024 Ordering Provider: [id number] RC KERN MRN/PID: [id number] Fellow: Nurse: Date of /Age: 7 1945 Independent Crop Consultant: Viry ely RDCS, RVT Gender Assigned at F Additional Staff: : Height: 162.56 cm Admit Date: Weight: 122.02 kg Admission Status: Outpatient BSA / BMI: 2.22 m2 / 46.17 Department Location: [facility] kg/m2 [place] Blood Pressure: 124 /86 mmHg Study Type: TRANSTHORACIC ECHO (TTE) COMPLETE Diagnosis/ICD: Supraventricular tachycardia-I47.1; Abnormal electrocardiogram [ECG] [EKG]-R94.31; Palpitations-R00.2 Indication: Edema, HTN, Hyperlipidemia, Carotid Stenosis, CARO, CKD-Stage III, Morbid Obesity CPT Codes: Echo Complete w Full [id number] Study Detail: The following Echo studies were [...] (0.6-0.9m/s) AORTA: Asc Ao Diam 2.66 cm [id number] David Castle MD, [facility] Electronically signed on 09/18/2024 at 6:10:05 PM Final Procedure Note David Castle MD - 09/18/2024 [facility] [address] [place] [address], [address], [place] [address] TRANSTHORACIC ECHOCARDIOGRAM REPORT Patient Name: USHA Deal Physician: [id number] Castle MD,[facility] Study Date: 09/18/2024 Ordering Provider: [id number] KERN MRN/PID: [id number] Fellow: Nurse: Date of /Age: 7 1945 / 78 Independent Crop Consultant: David ely RDCS, RVT Gender Assigned at F Additional Staff: : Height: 162.56 cm Admit Date: Weight: 122.02 kg Admission Status: Outpatient BSA / BMI: 2.22 m2 / 46.17 [facility] [place] Blood Pressure: 124 /86 mmHg Study Type: TRANSTHORACIC ECHO (TTE) COMPLETE Diagnosis/ICD: Supraventricular tachycardia-I47.1; Abnormalelectrocardiogram [ECG] [EKG]-R94.31; Palpitations-R00.2 Indication: Edema, HTN, Hyperlipidemia, Carotid Stenosis, CARO,CKD-Stage III, Morbid Obesity CPT Codes: Echo Complete w Full Doppler-[id number] Study Detail: The following Echo studies were [...] (0.6-0.9m/s) AORTA: Asc Ao Diam 2.66 cm [id number] David Castle MD, FACC Electronically signed on 09/18/2024 at 6:10:05 PM Final Rc Kern MD CV ECHO PROCEDURES Final Result Performing Organization Address City/[facility] Co de Phone Number SYNGO * ECG 12 Lead (07/15/2024 11:15 AM EDT) Narrative [facility] - 07/15/2024 7:38 PM EDT Normal sinus rhythm 93 bpm voltage criteria for left ventricular hypertrophy abnormal R wave progression, 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 Compared to EKG from December 2019, left axis deviation loss of lateral R waves were noted in December 2019. Rc Kern MD ECG ORDERABLES Edited Result - Final Performing Organization Address [facility] de Phone Number CPA * (ABNORMAL) Basic Metabolic Panel (01/30/2020 5:25 AM EDT) Glucose 128(H) 74 - 99 mg/dL [facility] Sodium 137 136 - 145 mmol/L [facility] Potassium 4.2 3.5 - 5.3 mmol/L [facility] Chloride 101 98 - 107 mmol/L [facility] Bicarbonate 32 21 - 32 mmol/L [facility] Anion Gap 8(L) 10 - 20 mmol/L [facility] Urea Nitrogen 14 6 - 23 mg/dL [facility] Creatinine 1.00 0.50 - 1.05 mg/dL [facility] GLOMERULAR FILTRATION RATE-NON 54(A) >60 mL/min/1.7 3m2 [facility] GLOMERULAR FILTRATION RATE- 65 >60 mL/min/1.7 2 [facility] Comment: CALCULATIONS OF ESTIMATED GFR ARE PERFORMED USING THE MDRD STUDY EQUATION FOR THE IDMS-TRACEABLE CREATININE METHODS. CLIN CHEM 2007;53:766-72 Calcium 8.8 8.6 - 10.3 mg/dL [facility] 01/30/2020 5:25 AM EDT 01/30/2020 6:26 AM EDT us Micah Bird MD LAB BLOOD ORDERABLES Final Res ult [facility] from Last 3 Months or Most Recently Relevant to Health Maintenance Insurance GENERIC COMMERCIAL MEDICARE PART A AND B [place] [id number] MEDICARE PART A AND B Care Teams Outpatient Coordinator Relationship Specialty Start Date End Date Roc Steele MD 112 [facility] 110 [place] [address] PCP - General 10/04/22
--- OUTSIDE RECORDS SUMMARY | 2024-10-03 14:56 | XMS_ITS | Encounter Summary ---
Author Organization [facility] Address [address] [place] [address] Care Team Providers Care Sand Operator Name Role Phone Roc Steele MD Primary Care Provider [phone] Roc Steele MD Unavailable [phone] Luis Felipe Dugan DO Unavailable [phone] Raya Holt RN Unavailable [phone] Gladis Laird LPN Unavailable Unavailable Encounter Details Date Type Department Care Team (Late st Contact Info) Description 07/13/2023 Abstract [facility] 112 [facility] 110 [place] [address] Roc Steele MD 112 [facility] 110 [place] [address] Social History Tobacco Use Types [...] Recorded Patient Health Questionnaire-2 Score 0 07/06/2023 [facility] of Occupat ional [facility] - Occupational Stress Questionnaire Answer Date [...] EDT Procedure Visit [facility] 112 [facility] 120 [place] [phone] Alex Tam DPM 3006 [facility] 5 [place] [address] 10/30/2024 11:30 AM EDT Office Visit [facility] 112 [facility] 110 [place] [address] Aarti Castillo, SENIOR PRODUCT MARKETING MANAGER 112 [facility] 110 [place] [address] documented as of this encounter Visit Diagnoses Not on filedocumented in this encounter Additional Health Concerns Assessment Noted Time PHQ-9 Depression Total Score: 0 07/06/19 24 3:00 PM EST documented as of this encounter Care Teams Sand Operator Relationship Specialty Start Date End Date Roc Steele MD [address] [facility] 110 [place] [address] PCP - General Internal Medicine 09/28/22 Roc Steele MD [address] [facility] 110 [place] [address] PCP - ACO Reach 08/30/23 Luis Felipe Dugan DO [address] [facility] 110 [place] [address] Referring Physician Neurology 03/07/24 Raya Holt, RN Clinical Advocate Family Medicine 06/07/24 07/19/24 Gladis Laird LPN 07/19/24 documented as of this encounter
--- OUTSIDE RECORDS SUMMARY | 2024-10-03 14:56 | XMS_ITS | Encounter Summary ---
Author Organization [facility] Address [address] [place] [address] Care Team Providers Care Smoke Room Operator Name Role Phone Roc Steele MD Primary Care Provider [phone] Roc Steele MD Unavailable [phone] Luis Felipe Dugan DO Unavailable [phone] Raya Holt RN Unavailable [phone] Gladis Laird LPN Unavailable Unavailable Encounter Details Date Type Department Care Team (Late st Contact Info) Description 10/16/2023 Abstract [facility] 112 [facility] [facility] 110 [place] [address] Roc Steele MD 112 [facility] 110 [place] [address] Social History Tobacco Use Types [...] Patient Health Questionnaire-2 Score 0 07/06/2023 [facility] of Occupat ional [facility] [...] Procedure Visit [facility] 112 [facility] 120 [place] [address] Alex Tam DPM 3006 [facility] 5 [place] [address] 10/30/2024 11:30 AM EDT Office Visit [facility] 112 [facility] 110 [place] [address] Aarti Castillo, CONSUMER ANALYST 112 [facility] 110 [place] [address] documented as of this encounter Visit Diagnoses Not on filedocumented in this encounter Additional Health Concerns Assessment Noted Time PHQ-9 Depression Total Score: 0 07/06/19 24 3:00 PM EST documented as of this encounter Care Teams Smoke Room Operator Relationship Specialty Start Date End Date Roc Steele MD [address] [facility] 110 [place] [address] PCP - General Internal Medicine 09/28/22 Roc Steele MD [address] [facility] 110 [place] [address] PCP - ACO Reach 08/30/23 Luis Felipe Dugan DO [address] [facility] 110 [place] [address] Referring Physician Neurology 03/07/24 Raya Holt, RN Clinical Advocate Family Medicine 06/07/24 07/19/24 Gladis Laird LPN 07/19/24 documented as of this encounter
--- OUTSIDE RECORDS SUMMARY | 2024-10-03 14:56 | XMS_ITS | Encounter Summary ---
Author Organization [facility] Address [address] [place] [address] Care Team Providers Care [employer] Name Role Phone Roc Steele MD Primary Care Provider [phone] Roc Steele MD Unavailable [phone] Luis Felipe Dugan DO Unavailable [phone] Gladis Laird LPN Unavailable Unavailable Encounter Details Date Type Department Care Team (Late st Contact Info) Description 08/07/2024 Abstract [facility] 112 [facility] [facility] 110 [place] [address] Roc Steele MD 112 [facility] 110 [place], [place] [id number] Social History Tobacco Use Types Packs/Day Years [...] Recorded Patient Health Questionnaire-2 Score 0 08/01/2024 [facility] of Occupat ional Health - Occupational [...] Upcoming Encounters Date Type Department Care Team ([facility] st Contact Info) Description 10/10/2024 3:00 PM EDT Procedure Visit [facility] 112 [facility] 120 [place] [address] Alex Tam DPM 3006 [facility] 5 [place] [address] 10/30/2024 11:30 AM EDT Office Visit [facility] 112 [facility] 110 [place] [phone] Aarti Castillo NP 112 [facility] 110 [place], [place] [phone] documented as of this encounter Visit Diagnoses Not on filedocumented in this encounter Additional Health Concerns Assessment Noted Time PHQ-9 Depression Total Score: 0 07/06/19 24 3:00 PM EST documented as of this encounter Care Teams [employer] Relationship Specialty Start Date End Date Roc Steele MD [address] [facility] 110 [place] [address] PCP - General Internal Medicine 09/28/22 Roc Steele MD [address] [facility] 110 [place] [address] PCP - ACO Reach 08/30/23 Luis Felipe Dugan DO [address] [facility] 110 [place] [address] Referring Physician Neurology 03/07/24 Gladis Laird LPN 07/19/24 documented as of this encounter
--- OUTSIDE RECORDS SUMMARY | 2024-10-03 14:56 | XMS_ITS | Clinical Summary ---
Author Organization [facility] Address [address] [place] [address] Care Team Providers Care Medicare Sales Executive Name Role Phone Roc Steele MD Primary Care Provider [phone] Roc Steele MD Unavailable [phone] Luis Felipe Dugan DO Unavailable [phone] Gladis Laird LPN Unavailable Unavailable Allergies Active [...] chewable tablet Take by oral route. Active simvastatin (Zocor) 10 MG tabletIndications :Hyperlipidemia, [...] AT BEDTIME 90 tablet 09/12/19 25 Active gabapentin (Neurontin) 300 MG capsuleIndication s:Acute low back pain without sciatica, unspecified back pain laterality Take 1 capsule (300 mg) by mouth in the morning and 1 capsule (300 mg) before bedtime. 200 capsule 3 10/03/19 25 Active pantoprazole (ProtoNix) 40 MG EC tabletIndications :Gastroesophageal reflux disease with esophagitis without hemorrhage TAKE 1 TABLET BY MOUTH ONCE DAILY 100 tablet 3 08/08/19 24 025 Discontinued gabapentin (Neurontin) 300 MG capsuleIndication s:Acute low back pain without sciatica, unspecified back pain laterality TAKE 1 CAPSULE BY MOUTH TWICE DAILY 200 capsule 3 08/08/19 24 025 Discontinued zolpidem (Ambien) [...] Encounters Date Type Department Care Team Description 10/02/2024 Refill [facility] [address] [place] [address] [place] [address] Aarti Castillo, DEISY Acute low back pain without sciatica, unspecified back pain laterality 10/01/2024 Clinisync Result Encounter [facility] External Department Unsolicited Provider, Generic External Data 10/01/2024 Abstract [facility] [address] [place] [address] [place] [address] Roc Steele MD 09/18/2024 Abstract [facility] [address] [place] [address] [place] [address] Roc Steele MD 09/10/2024 Refill [facility] [address] [place] [address] [place] [address] Aarti Castillo NP Primary insomnia 09/10/2024 Refill [facility] [address] [facility] [address] [place] [address] Roc Steele MD Gastroesophageal reflux disease with esophagitis without hemorrhage 08/28/2024 Patient Outreach [facility] [address] [place] [address] Gladis Laird LPN 08/20/2024 Abstract [facility] [address] [facility] [address] [place] [address] Roc Steele MD 08/20/2024 Abstract [facility] [address] [facility] [address] [place] [address] Roc Steele MD 08/19/2024 11:15 AM EDT Office Visit [facility] [address] [place] [address] [place] [address] Roc Steele MD Age-related osteoporosis without current pathological fracture (CMS/[facility]) (Primary Dx); Osteopenia of both hips; Chronic cough 08/19/2024 Travel 08/19/2024 Abstract [facility] [address] [place] [address] [place] [address] Roc Steele MD 08/07/2024 Abstract [facility] [address] [place] [address] [place] [address] Roc Steele MD 08/01/2024 2:30 PM EDT Procedure Visit [facility] PODIATRY [address] [facility] [address] [place] [address] Alex Tam, DPM Pain due to onychomycosis of toenails of both feet (Primary Dx) 08/01/2024 1:30 PM EDT Office Visit [facility] [address] [facility] [address] [place] [address] Aarti Castillo, DEISY SOB (shortness of breath) (Primary Dx); Chronic cough; Lumbosacral spondylosis without myelopathy; Seasonal allergic rhinitis, unspecified trigger; Age-related osteoporosis without current pathological fracture ([facility]) 08/01/2024 Bamboo flowsheet [facility] [address] [facility] [address] [place] [address] Aarti Castillo, DEISY 08/01/2024 Travel 07/30/2024 Telephone [facility] [address] [facility] [address] [place] [address] Raya Ko MA 07/26/2024 11:00 AM EDT Ancillary Procedure [facility] DXA [address] [place] [address] [place] [address] Osteopenia of both hips; Decreased estrogen level 07/26/2024 Travel 07/24/2024 Abstract [facility] [address] [facility] [address] [place] [address] Roc Steele MD 07/23/2024 Abstract [facility] [address] [facility] [address] [place] [address] Roc Steele MD 07/23/2024 Abstract [facility] [address] [facility] [address] [place] [address] Roc Steele MD 07/19/2024 Telephone [facility] [address] [facility] [address] [place] [address] Sushila Nieves PA 07/18/2024 Clinisync Result Encounter NOMS External Department Unsolicited Roc Steele MD 07/17/2024 Clinisync Result Encounter NOMS External Department Unsolicited Roc Steele MD 07/15/2024 Telephone [facility] [address] [place] [address] Roc Steele MD 07/11/2024 1:00 PM EDT Office Visit [facility] [address] [place] [address] Aarti Castillo NP Insomnia, unspecified type (Primary [...] tolerance); Morbid obesity due to excess calories (CMS/[facility]); Vitamin D deficiency; Anxiety; Decreased estrogen level; Difficulty walking; Localized edema; Hyperlipidemia, unspecified hyperlipidemia type (CMS/HCC); 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; Acute low back pain without sciatica, unspecified back pain laterality; Recurrent falls; Medicare annual wellness visit, subsequent; Routine general medical examination at health care facility; Chronic congestive heart failure, unspecified heart failure type (CMS/HCC) 07/11/2024 Abstract [facility] [address] [place] [address] Roc Steele MD 07/11/2024 Travel 07/11/2024 Abstract [facility] [address] [place] [address] Roc Steele MD 07/05/2024 11:15 AM EST Ancillary Procedure [facility] RADIOLOGY [address] [place] [address] [place] [address] Pain of right hip; Fall, initial encounter 07/05/2024 Travel 07/04/2024 Telephone [facility] 112 [facility] [address] [place] [address] Aarti Castillo NP 07/03/2024 11:30 AM EST Office Visit [facility] 112 [facility] [address] [place] [address] Aarti Castillo, DEISY Paroxysmal supraventricular tachycardia (CMS/HCC) (Primary Dx); Primary insomnia; Acute congestive heart failure, unspecified heart failure type (CMS/HCC); Stage 3b chronic kidney disease (HCC) (CMS/HCC); Weakness; Other fatigue; Pain of right hip; Fall, initial encounter 07/03/2024 Bamboo flowsheet [facility] 112 [facility] [address] [place] [address] Aarti Castillo NP 07/03/2024 Travel from Last 3 Months Immunizations Immunization Administration [...] any clubs o r organizations such as denominational groups, unions, fraternal or athletic groups, or [...] Recorded Patient Health Questionnaire-2 Score 0 08/19/2024 [facility] [place] [facility] Occupat ional Health - Occupational Stress [...] PODIATRY 112 [facility] 120 [place] [address] Alex Tam DPM [address] [facility] 5 [place] [address] 10/30/2024 11:30 AM EDT Office Visit [facility] 112 [facility] [address] [place] [address] Aarti Castillo, GENERAL COUNSEL 112 [facility] 110 [place] [address] Health Maintenance Due Date Last Done Comments Colonoscopy Discontinued 10/31/2012 Colorectal Cancer Screening Discontinued Pneumococcal Vaccine: 65+ Years Completed 5, 12/11/2013 Influenza Vaccine Completed 03/05/2024, , 03/23/2022, Additional history exists CT Colonography Discontinued FIT-DNA Discontinued FIT Discontinued FOBT Discontinued Sigmoidoscopy Discontinued Procedures Procedure Name Priority Date/Time Associated Diagnosis Comments MR LUMBAR SPINE WO CON 10/01/2024 2:34 PM EDT LIPID PANEL Routine 07/26/2024 11:32 AM EDT Hyperlipidemia, unspecified hyperlipidemia type ([facility]) Medicare annual wellness visit, subsequent DEXA BONE [...] Recently Relevant to Health Maintenance Results * MR LUMBAR SPINE WO CON (10/01/2024 2:34 PM EDT) Anatomical Region Laterality Modality Other 10/01/2024 2:34 PM EDT Narrative 10/01/2024 2:37 [place] [address] Magnetic Resonance Report Signed Patient: USHA RIBEIRO MR#: [id number] : 1945 Acct:[id number] Age/Sex: 78 / F ADM Date: 10/01/24 Loc: MRI Attending Dr: Ml Sanchez M.D. Ordering Physician: Ml Sanchez M.D. Date of Service: 10/01/24 Procedure(s): MR lumbar spine wo con Accession Number(s): [id number] cc: ROC STEELE ; Ml Sanchez M.D. The [place] [id number] Patient Name: USHA RIBEIRO MRN: [id number] date: 1945 Sex: F Assigned Patient Location: MRI Current Patient Location: MRI Accession/Order Number: [id number] Exam Date: 10/01/2024 14:28 Report Date: 10/01/2024 [...] Bach M.D. 10/01/2024 2:34 PM Dictation Location: [place] [address] Electronically authenticated by: [id number] Date: 10/01/2024 14:34 Dictated By: Sj Bach M.D. Signed By: 10/01/24 1437 DD/ 1434 TD/TT: Diagnostic Cardiac Sonographer: Procedure Note Radiology, Radiologist, - 10/01/2024 [place] [address] Magnetic Resonance Report Signed Patient: USHA RIBEIRO KMR#: [id number] : 1945cct:[id number] Age/Sex: 78 / FADM Date: 10/01/24 Loc: MRI Attending Dr: Ml Sanchez M.D. Ordering Physician: Ml Sanchez M.D. Date of Service: 10/01/24 Procedure(s): MR lumbar spine wo con Accession Number(s): [id number] cc: ROC STEELE ; Ml Sanchez M.D. [facility] [place] [id number] Patient Name: USHA RIBEIRO MRN: [id number] date: 1945 Sex: F Assigned Patient Location: MRI Current Patient Location: MRI Accession/Order Number: [id number] Exam Date: 10/01/2024 14:28 Report Date: 10/01/2024 [...] Bach M.D. 10/01/2024 2:34 PM Dictation Location: [place] [address] Electronically authenticated by: [id number] Y Date: 4:34 Dictated By: Sj Bach M.D. Signed By:10/01/24 1437 DD/ 1434 TD/TT: Diagnostic Cardiac Sonographer: us Generic External Data Provider [facility] Final Result * (ABNORMAL) Lipid panel (07/26/2024 11:32 AM [...] factors. LDL-C is now calculated using the Fred calculation, which is a validated novel method providing better accuracy than the Friedewald equation in the estimation of LDL-C. Mike SS et al. MARGO. 2013;310(19): 7044-0801 (http://education.Swoop/faq/JYD417) CHOL/HDLC RATIO 3.1 <5.0 (calc) [facility] NON [...] Performing Organization Information Site ID: QPT Name: [employer] [facility] Address: [address] [place] [address], [address] [place] [address] Director: Bryce Larsen MD us Aarti Castillo [...] BY: Juan Carlos Squires M.D. Aarti Castillo GENERAL COUNSEL IMG DXA PROCEDURES Final Res ult * MM TOMOSYNTHESIS SCREENING BI (07/18/2024 4:19 PM EDT) Anatomical Region Laterality Modality Other 07/18/2024 4:19 PM EDT Narrative 07/18/2024 4:20 PM EDT [address] [address] Mammography Report Signed Patient: USHA RIBEIRO MR#: [id number] : 1945 Acct:[id number] Age/Sex: 78 / F ADM Date: 07/17/24 Loc: MAMMO Attending Dr: ROC STEELE Ordering Physician: ROC STEELE Results: Date of Service: 07/17/24 Follow Up: Procedure(s): MM tomosynthesis screening BI Accession Number(s): [id number] cc: ROC STEELE Patient Name: USHA RIBEIRO MR#: [id number] : 1945 Exam Date: 07/17/2024 Ordering Doctor: [...] breast cancer at age 61. LOCATION: [facility] BREAST COMPOSITION: There are scattered areas of [...] Signed By: 07/18/24 1620 DD/ 1619 TD/TT: Diagnostic Cardiac Sonographer: Procedure Note Radiology, Radiologist, MD - 07/18/2024 [place] [address] Mammography Report Signed Patient: USHA RIBEIRO KMR#: [id number] : 7Acct:[id number] Age/Sex: 78 / FADM Date: 07/17/24 Loc: MAMMO Attending Dr: ROC STEELE Ordering Physician: ROC STEELEResults: Date of Service: 07/17/24Follow Up: Procedure(s): MM tomosynthesis screening BI Accession Number(s): [id number] cc: ROC STEELE Patient Name: USHA RIBEIRO MR#: [id number] : 1945 Exam Date: 07/17/2024 Ordering Doctor: [...] breast cancer at age 61. LOCATION: [facility] BREAST COMPOSITION: There are scattered areas of [...] M.D. Signed By:07/18/24 1620 DD/ 1619 TD/TT: Diagnostic Cardiac Sonographer: us Roc Steele MD [facility] Final Result * NON VAS EXTREM US, EXTREMITY,NONVASCULAR, REAL TIME W/IMAGE DOCUMENTATION COMPLETE (07/17/2024 6:36PM EDT) Anatomical Region Laterality Modality Radiographic Gillian ging 07/17/2024 6:36 PM EDT Narrative 07/17/2024 6:39 [place] [address] Ultrasound Report Signed Patient: USHA RIBEIRO MR#: [id number] : 1945 Acct:[id number] Age/Sex: 78 / F ADM Date: 07/17/24 Loc: MAMMO Attending Dr: ROC STEELE Ordering Physician: ROC STEELE Date of Service: 07/17/24 Procedure(s): US extremity nonvascular LT Accession Number(s): [id number] cc: ROC STEELE [facility] [place] [address] Patient Name: USHA RIBEIRO MRN: [facility]:[id number] date: 1945 Sex: F Assigned Patient Location: MAMMO Current Patient Location: [facility] Accession/Order Number: [id number] Exam Date: 07/17/2024 18:35 Report Date: 07/17/2024 [...] Garza Jr., D.O.07/17/2024 6:36 PM Dictation Location: [place] [address] Electronically authenticated by: [id number] Y Date: 07/17/2024 18:36 Dictated By: Jayce De La Garza M.D. Signed By: 07/17/241838 DD/ 35 TD/TT: Diagnostic Cardiac Sonographer: Procedure Note Radiology, Radiologist, MD - 07/17/2024 [place] [address] Ultrasound Report Signed Patient: USHA RIBEIRO KMR#: [id number] : 1945cct:[id number] Age/Sex: 78 / FADM Date: 07/17/24 Loc: MAMMO Attending Dr: ROC STEELE Ordering Physician: ROC STEELE Date of Service: 07/17/24 Procedure(s): US extremity nonvascular LT Accession Number(s): [id number] cc: ROC STEELE [place] [address] Patient Name: USHA RIBEIRO MRN: [id number] date: 1945 Sex: F Assigned Patient Location: MAMMO [facility] Accession/Order Number: [id number] Exam Date: 07/17/2024 18:35 Report Date: 07/17/2024 [...] dictated by: Jayce De La Garza Jr., DLazarus07/17/2024 6:36 PM Dictation Location: [place] [address] Electronically authenticated by: [id number] Y Date: 8:36 Dictated By: Jayce De La Garza M.D. Signed By:07/17/241838 DD/ 35 TD/TT: Diagnostic Cardiac Sonographer: Roc Steele MD IMG XR PROCEDURES Final Result * POCT Glycated hemoglobin, total (07/11/2024 1:36 PM EDT) Hemoglobin A1C 6.1 Blood 07/11/2024 1:36 PM EDT Aarti Castillo NP POINT OF CARE TEST ENTER/TATE T ORDERABLES [...] and approved by theinterpreting Radiologist. Aarti Castillo NP IMG XR PROCEDURES Final Resu lt * Magnesium (07/03/2024 11:51 AM EST) [facility] MAGNESIUM 2.0 1.5 - 2.5 mg/dL [facility] Blood Venous blood specimen / Unknown 07/03/2024 11:51 AM EST 07/03/2024 11:51 AM EST Narrative [facility] - 07/04/2024 4:20 AM EST FASTING:NO FASTING: NO Resulting Agency Comment Performing Organization Information Site ID: QPT Name: [employer] [facility] Address: [address] [place] [address], [address] [place] [address] Director: Bryce Larsen MD Aarti Castillo NP [...] Performing Organization Information Site ID: QPT Name: [employer] [facility] Address: [address] [place] [address], [address] [place] [phone] Director: Bryce Larsen MD us Aarti Castillo NP LAB BLOOD ORDERABLES Final R esult [facility] * Colonoscopy (10/31/2012 12:00 PM EDT) Anatomical Region Laterality Modality Endoscopy 10/31/2012 12:0 0 PM EDT Narrative 10/31/2012 12:00 PM EDT PERFORMED AT [facility] LOCATION:[id number] DIVERTICULOSIS Procedure Note CONVERSION, GENERIC - 09/15/2022 PERFORMED AT [facility] LOCATION:[id number] DIVERTICULOSIS Roc Steele MD ENDOSCOPY PROCEDURE ORDERABLES Final Result from Last 3 Months or Most Recently Relevant to Health Maintenance Insurance [facility] MEDICARE Care Teams Medicare Sales Executive Relationship Specialty Start Date End Date Roc Steele MD [address] [facility] [address] [place] [address] PCP - General Internal Medicine 09/28/22 Roc Steele MD [address] [facility] [address] [place] [address] PCP - ACO Reach 08/30/23 Luis Felipe Dugan DO [address] [facility] [address] [place] [address] Referring Physician Neurology 03/07/24 Gladis Laird LPN 07/19/24
--- OUTSIDE RECORDS SUMMARY | 2024-10-03 14:56 | XMS_ITS | Encounter Summary ---
Author Organization [facility] Address [address] [place] [address] Care Team Providers Care Online Publisher Name Role Phone Roc Steele MD Primary Care Provider [phone] Roc Steele MD Unavailable [phone] Luis Felipe Dugan DO Unavailable [phone] Raya Holt RN Unavailable [phone] Gladis Laird LPN Unavailable Unavailable Encounter Details Date Type Department Care Team (Late st Contact Info) Description 10/03/2023 Abstract [facility] [address] [facility] [address] [place] [address] Roc Steele MD 112 [facility] 110 [place] [address] Social History Tobacco Use Types [...] often do you attend chur ch or islam services? Never 11/25/2022 Do you belong to [...] Recorded Patient Health Questionnaire-2 Score 0 07/06/2023 [facility] - Occupational Stress Questionnaire Answer Date [...] CI PODIATRY 112 [facility] 120 [place] [address] Alex Tam DPM 3[address] [facility] 5 [place] [address] 10/30/2024 11:30 AM EDT Office Visit [facility] 112 [facility] 110 [place] [address] Aarti Castillo, CUSTOMS EXAMINER 112 [facility] 110 [place] [address] documented as of this encounter Visit Diagnoses Not on filedocumented in this encounter Additional Health Concerns Assessment Noted Time PHQ-9 Depression Total Score: 0 07/06/19 24 3:00 PM EST documented as of this encounter Care Teams Online Publisher Relationship Specialty Start Date End Date Roc Steele MD [address] [facility] [address] [place] [address] PCP - General Internal Medicine 09/28/22 Roc Steele MD [address] [facility] [address] [place] [address] PCP - ACO Reach 08/30/23 Luis Felipe Dugan DO [address] [facility] [address] [place] [address] Referring Physician Neurology 03/07/24 Raya Holt, RN Clinical Advocate Family Medicine 06/07/24 07/19/24 Gladis Laird LPN 07/19/24 documented as of this encounter
--- NOTE | 2024-10-03 15:29 | PM.CN ---
Consult Note: HPI Data of Consult Patient: known to practice within the last 3 years Consult date: 10/03/24 Requesting Physician: Fernanda Romeo NP Primary Care Provider: REJI FORRESTER Consult Narrative Reason for consult: low back and RLE pain Narrative: 78yof who presents for evaluation. longstanding low back, right hip and leg pain. thought it was from hip, which was replaced several years ago, but xr shows hip in good alignment. has engaged in a series of provider directed home exercises >6 weeks, without lasting benefit. uses pain meds from pcp. denies adverse med side effects. recent lumbar MRI consistent with multilevel ddd, stenosis, facet arthropathy, as well as L5 pars defect. cc:: CC: Fernanda Romeo NP [facility] Medical History Benign essential hypertension ?I10 - Essential (primary) hypertension (ICD-10) Chronic heart failure with preserved ejection fraction (HFpEF) ?I50.32 - Chronic diastolic (congestive) heart failure (ICD-10) Generalized weakness ?R53.1 - Weakness (ICD-10) Fall ?W19.XXXA - Unspecified fall, initial encounter (ICD-10) Pulmonary edema ?J81.1 - Chronic pulmonary edema (ICD-10) Closed head injury ?S09.90XA - Unspecified injury of head, initial encounter (ICD-10) Contusion of right knee ?S80.01XA - Contusion of right knee, initial encounter (ICD-10) Abrasion of elbow, right ?S50.311A - Abrasion of right elbow, initial encounter (ICD-10) Pneumonia ?J18.9 - Pneumonia, unspecified organism (ICD-10) Acute CHF (congestive heart failure) ?I50.9 - Heart failure, unspecified (ICD-10) Acute kidney injury ?N17.9 - Acute kidney failure, unspecified (ICD-10) Community acquired pneumonia ?J18.9 - Pneumonia, unspecified organism (ICD-10) GERD without esophagitis ?K21.9 - Gastro-esophageal reflux disease without esophagitis (ICD-10) Lump of left breast ?N63.20 - Unspecified lump in the left breast, unspecified quadrant (ICD-10) High cholesterol ?E78.00 - Pure hypercholesterolemia, unspecified (ICD-10) High blood pressure ?I10 - Essential (primary) hypertension (ICD-10) Anxiety ?F41.9 - Anxiety disorder, unspecified (ICD-10) Macular degeneration ?H35.30 - Unspecified macular degeneration (ICD-10) Degenerative disc disease Fibromyalgia ?M79.7 - Fibromyalgia (ICD-10) Right shoulder pain ?M25.511 - Pain in right shoulder (ICD-10) Sleep apnea ?G47.30 - Sleep apnea, unspecified (ICD-10) Surgical History Carpal tunnel syndrome, left ?G56.02 - Carpal tunnel syndrome, left upper limb (ICD-10) History of arthroplasty of right ankle ?Z96.661 - Presence of right artificial ankle joint (ICD-10) History of bilateral knee replacement ?Z96.653 - Presence of artificial knee joint, bilateral (ICD-10) History of right hip replacement ?Z96.641 - Presence of right artificial hip joint (ICD-10) Family History Mother Family history of CHF (congestive heart failure) Sister Family history of CHF (congestive heart failure) Son Family history of cancer Family history of diabetes mellitus Family history of hypertension Social History Within the past year, how often did you have a drink containing alcohol: never Score interpretation: A score less than 3 is consistent with normal alcohol consumption. Smoking status: Never smoker Non-prescribed substance use: denies use Previous occupational history: retired Highest level of school completed/degree received: GED or equivalent Are you now , , , , never or living with a partner: In a typical week, how many times do you talk on the telephone with family, friends, or neighbors: 3 or more times per week How often do you get together with friends or relatives: 3 or more times per week How often do you attend yarsanism or jehovah's witness services: never Little interest or pleasure in doing things: not at all Feeling down, depressed, or hopeless: not at all Feel stressed/tense/nervous/anxious/difficulty sleeping: not at all Do you think of yourself as: straight/heterosexual Gender Identity: female Meds Home Medications and Allergies Home Medications ?Medication ?Instructions ?Recorded ?Confirmed ?Type hydrocodone 5 mg-acetaminophen 325 1 tab PO Q6H PRN pain 12/01/22 09/18/24 History mg tablet nortriptyline 10 mg capsule 30 mg PO BEDTIME 12/01/22 09/18/24 History pantoprazole 40 mg tablet,delayed 40 mg PO DAILY 12/01/22 09/18/24 History release simvastatin 10 mg tablet 10 mg PO DAILY 12/01/22 09/18/24 History zolpidem 10 mg tablet 10 mg PO DAILY 12/01/22 09/18/24 History tizanidine 4 mg tablet 4 mg PO DAILY 05/12/24 09/18/24 History metoprolol succinate 50 mg 50 mg PO BID #0 tabs 05/14/24 09/18/24 Rx tablet,extended release 24 hr Allergies Allergy/AdvReac Type Severity Reaction Status Date / Time clarithromycin Allergy Severe Rash Verified 06/14/24 15:29 moxifloxacin (From Avelox) Allergy Severe tongue Verified 06/14/24 15:29 swelling Sulfa (Sulfonamide Allergy Unknown Unknown Verified 06/14/24 15:29 Antibiotics) ciprofloxacin (From Cipro) Allergy Rash Verified 06/14/24 15:29 Exam Constitutional Documenting provider has reviewed patient's vital signs: yes Common normals: no apparent distress, oriented x3, healthy appearing, alert and well nourished General appearance: cooperative HENDE Common normals: normocephalic, hearing grossly normal bilaterally and moist oral mucous membranes Head and scalp: normocephalic Eye Common normals: PERRL Pupil: PERRL Neck & C-Spine Common normals: full ROM General: normal visual inspection Chest Common normals: inspection of chest normal Respiratory Common normals: normal respiratory effort, no retractions and no use of accessory muscles Back & Pelvis Lumbar spine/lower back: ROM limited, pain with ROM and straight leg raise positive right Sacroiliac joints: SI joint(s) abnormal Other: decreased right L3,4,5 sensation strength 4/5 in RLE and 5/5 in LLE right sij positive vinnie(patricks), gaenslens, thigh thrust, compression test Extremity Common normals: normal to inspection and full ROM Neuro Common normals: oriented x3 Sensorium/orientation: alert Psych Common normals: mental status grossly normal, thought process normal, cooperative, affect normal, speech normal and activity/motor behavior normal Speech: normal speech Thought process: normal thought process Assessment and Plan Assessment and Plan (1) Lumbar stenosis with neurogenic claudication: Assessment and Plan: The patient has had over 3 months of moderate to severe low back and RLE pain with functional impairment and inadequate response to conservative care including NSAIDS (unless there are contraindication such as concurrent blood thinners), multiple oral or topical pain medications, and home exercise program/physical therapy.? Patient has completed >6 weeks of guided home exercise program and/or formal physical therapy program without relief of their symptoms.? The Oswestry Disability Index was completed, and the patient scored a 50%.? The patient noted the following:?? moderate to severe pain impacting standing, walking, sitting, sleeping, social life, and travel We discussed the risks and benefits of the procedure with the patient, and we are NOT planning on using sedation as outlined in the guidelines from Medicare unless there is a documented reason that sedation would be strongly recommended.??The procedure will be completed with fluoroscopic guidance.? (2) Sacroiliitis: Plan right L3-4 L4-5 TFESI under fluoroscopy, consider right SIJ injection continue HEP as tolerated continue utilizing walker, notes frequent falls f/u 2 weeks after injection
== END 2024-10-03 14:52 | disposition home or self-care (01) ==
LOC: PM 14:52
PROVIDERS: PCP Internal Medicine; Visit Provider Nurse Practitioner
DX: M48.062 Spinal stenosis, lumbar region with neurogenic claudication (principal); M46.1 Sacroiliitis, not elsewhere classified
CPT/HCPCS: G0463

== ENCOUNTER 2024-10-14 08:29 | Day surgery (SDC) | payer MEDICARE, OTHER, SELFPAY ==
--- OUTSIDE RECORDS SUMMARY | 2024-10-14 08:49 | XMS_ITS | CCD ---
Author Organization [facility] Care Team Providers Care Network Support Specialist Name Role Phone Tasia Bird Unavailable Unavailable Unavailable Unavailable Unavailable TRA ., SASHA Consulting Unavailable TRA ., SASHA Admitting Unavailable USAMA, DR MENDOZA Primary Care Unavailable TRA Cotto, SASHA Attending Unavailable HATTIE [place] Consulting Unavailable USAMA, DR MENDOZA Attending Unavailable USAMA, DR MENDOZA Consulting Unavailable USAMA, DR MENDOZA Primary Care Unavailable USAMA, DR MENDOZA Admitting Unavailable LISA FREDERICK V Consulting Unavailable CHANTAL ., DR WHIPPLE Attending Unavailable HAY ., DR WHIPPLE Admitting Unavailable USAMA, DR MENDOZA Primary Care Unavailable ISAEL HANSEN Consulting Unavailable ROXANN KERR Consulting Unavailab harjinder Steele II, Dr. Roc Lerma Primary Care Catina Dr. Taniya Ham Attending U Roc Wellington MD Unavailable Roc Steele MD Primary Care Provider Roc Steele MD Unavailable Waqas Dugan DO Unavailable Mala Sapp Attending UnavailMala Kenney Admitting UnavailRoc Grant Primary Care Unavailable Yanet MORALES, Raya Unavailable Roc Steele MD Primary Care Provider [phone] Gladis Laird LPN Unavailable Unavailable AMBER HAWLEY Referring Unavailable ROC STEELE Primary Care Unavailable AMBER HAWLEY Referring Unavailable ROC STEELE Primary Care Unavailable AMBER HAWLEY Referring Unavailable ROC STEELE Primary Care Unavailable AMBER HAWLEY Attending Unavailable ROC STEELE Primary Care Unavailable AMBER HAWLEY Referring Unavailable ROC STEELE Primary Care Unavailable Laura KING, Ml Banks Attending Unavailable BIGG, KAMILA M Attending Unavailable BROWN, ALEX Arvizu Attending Unavailable BIGG, KAMILA M Attending Unavailable BIGG, KAMILA M Attending Unavailable BIGG, KAMILA M Referring Unavailable BIGG, KAMILA M Attending Unavailable BIGG, KAMILA M Referring Unavailable BIGG, KAMILA M Attending Unavailable ALEX ALFREDO Attending Unavailable ROC STEELE Attending Unavailable BROWN, ALEX A Attending Unavailable BIGG, KAMILA M Attending Unavailable BROWN, ALEX A Attending Unavailable BROWN, ALEX A Attending Unavailable BIGG, KAMILA M Attending Unavailable WAQAS DUGAN Attending Unavailable BIGG, KAMILA M Referring Unavailable BIGG, KAMILA M Attending Unavailable BIGG, KAMILA M Referring Unavailable BIGG, KAMILA M Attending Unavailable BIGG, KAMILA M Attending Unavailable Allergies Allergy Classification Reported Allergen(s) Allergy Type Date of Onset Reaction(s) Facility Macrolides (antibiotic) (6 sources) Clarithromycin; Translations: [clarithromycin] Drug Allergy Unknown [facility] Work Phone: Quinolones (antibiotic) (18 sources) moxifloxacin; Translations: [moxifloxacin] Drug Allergy Anaphylaxis, Unknown [facility] Work Phone: (20 sources) Ciprofloxacin; Translations: [ciprofloxacin] Drug Allergy 3 Unknown [facility] (20 sources) Clarithromycin; Translations: [clarithromycin] Drug Allergy 3 Unknown [facility] (4 sources) moxifloxacin; Translations: [Avelox] Drug Allergy 3 Anaphylaxis [facility] (20 sources) moxifloxacin; Translations: [moxifloxacin] Drug Allergy 3 Anaphylaxis, Angioedema [facility] [place] Work Phone: (1 source) Ciprofloxacin Drug Allergy 3 [facility] (1 source) Sulfonamides (Antibiotic) Drug allergy (disorder) 3 [facility] (20 sources) Sulfanilamide Allergy to substance 3 [facility] (7 sources) Sulfonamides (Antibiotic); Translations: [SULFA (SULFONAMIDE ANTIBIOTICS)] Propensity to adverse reactions 5 Unknown [facility] Work Phone: Medications Current Medications Medication Drug Class(es) Dates Sig (Normalized) Sig (Original) acetaminophen 325 mg / HYDROcodone bitartrate 5 mg oral tablet (20 sources) Opioid Agonist Start: 02-29-2024 End: 08-31-2024 take 1 tablet by mouth every four hours as needed HYDROcodone-acetam inophen ([place]) 5-325 mg tablet Take 1 tablet by mouth every 4 hours if needed for severe pain (7 - 10). 04/03/2024 Active [id number] 200 actuat albuterol 0.09 mg/actuat metered dose inhaler (6 sources) beta2-Adrenergic Agonist Start: 08-01-2024 End: 08-01-2025 take 2 puff(s) by inhalation every four hours for cough albuterol HFA (Ventolin HFA) 90 mcg/act inhaler Indications: SOB (shortness of breath) , Chronic cough Inhale 2 puffs every 4 (four) hours if needed for wheezing or shortness of breath (cough) 54 g 3 08/01/2024 08/01/2025 Active ALPRAZolam 0.25 mg oral tablet (20 sources) Benzodiazepine Start: 11-30-2023 take 1 tablet by mouth twice daily as needed for anxiety ALPRAZolam (Xanax) 0.25 MG tablet Indications: Anxiety Take 1 tablet (0.25 mg) by mouth 2 (two) times a day as needed for anxiety 60 tablet 11/30/2023 Active amLODIPine 5 mg oral tablet (20 [...] 05/18/2023 Active benzonatate 100 mg oral capsule (11 sources) Non-narcotic Antitussive Start: 04-29-2024 End: 07-11-2024 benzonatate (Tessalon) 100 MG capsule TAKE 1 CAPSULE BY MOUTH TWICE DAILY to THREE TIMES DAILY NEEDED FOR COUGH for 5 (FIVE) days 04/29/2024 07/11/2024 Discontinued (Therapy completed) calcium carbonate 1500 mg / cholecalciferol 800 unt chewable tablet (20 sources) Vitamin D Calcium Carb-Cholecalcifer ol 600-20 MG-MCG chewable tablet calcium carb 600 mg(1,500 mg)-vit D3 400 unit-minerals chewable tablet Take by oral route. Active cefdinir 300 mg oral capsule (5 sources) Cephalosporin Antibacterial Start: 06-11-2024 End: 06-21-2024 take 1 capsule by mouth in the morning cefdinir (Omnicef) 300 MG capsule Indications: Acute non-recurrent pansinusitis Take 1 capsule (300 mg) by mouth in the morning and 1 capsule (300 mg) before bedtime. Do all this for 10 days. 20 capsule 06/11/2024 06/21/2024 Active Start: 04-03-2024 End: 04-13-2024 take 1 capsule [...] capsule 03/05/2024 03/12/2024 Active Start: 06-01-2023 End: 02-11-2024 take 1 capsule by mouth in the [...] mg/ml / guaiFENesin 20 mg/ml oral solution (10 sources) Opioid Agonist Start: 08-01-2024 End: 08-06-2024 take 10 mL by mouth four times daily as needed for cough guaiFENesin-codeine (Robitussin-AC) 100-10 MG/5ML syrup Indications: Chronic cough Take 10 mL by mouth 4 (four) times a day as needed for cough for up to 5 days 473 mL 08/01/2024 08/06/2024 Active Start: 06-11-2024 End: 06-25-2024 take 5 mL by mouth four times daily as needed for cough guaiFENesin-codeine (guaiFENesin AC) 100-10 MG/5ML syrup Indications: Acute cough Take 5 mL by mouth 4 (four) times a day as needed for cough for up to 14 days 240 mL 06/11/2024 06/25/2024 Active Start: 05-07-2024 End: 05-12-2024 take 5 mL [...] for muscle spasms. 05/22/2024 Discontinued (Therapy completed) 1 ml denosumab 60 mg/ml prefilled syringe (5 sources) RANK Ligand Inhibitor Start: 08-01-2024 inject 1 mL by subcutaneous injection once denosumab (Prolia) 60 MG/ML solution prefilled syringe Indications: Age-related osteoporosis without current pathological fracture (CMS/HCC) Inject 1 mL (60 mg) under the skin 1 (one) time for 1 dose 1 mL 08/01/2024 Active docusate sodium 100 mg oral capsule (5 sources) docusate sodium (Colace) 100 MG capsule 1 (one) time each day at the same time. 0 Active doxycycline hyclate 100 mg oral tablet (6 sources) Tetracycline-cl ass Drug Start: 05-07-2024 End: 05-17-2024 doxycycline (Vibra-Tabs) 100 MG tablet Indications: Bronchitis Take 1 tablet (100 mg) by mouth in the morning and 1 tablet (100 mg) before bedtime. Do all this for 10 days. Take with a full glass of water and do not lie down for at least 30 minutes after.. 20 tablet 05/07/2024 05/17/2024 Active fexofenadine hydrochloride 180 mg oral tablet (6 sources) Histamine-1 Receptor Antagonist Start: 08-01-2024 End: 08-01-2025 take 1 tablet by mouth once daily as needed fexofenadine (Radha) 180 MG tablet Indications: Seasonal allergic rhinitis, unspecified trigger Take 1 tablet (180 mg) by mouth Daily as needed (alleriges) 90 tablet 3 08/01/2024 08/01/2025 Active furosemide 20 mg oral tablet (20 sources) Loop Diuretic Start: 04-04-2024 End: 07-18-2025 take 1 tablet by mouth once daily furosemide (Lasix) 20 MG tablet Indications: Cardiomegaly , Chronic congestive heart failure, unspecified heart failure type (CMS/HCC) Take 1 tablet (20 mg) by mouth Daily 90 tablet 3 07/18/2024 07/18/2025 Active gabapentin 300 mg oral capsule (20 [...] DAILY FOR 3 DAYS 0 09/05/2022 Active magnesium oxide 400 mg oral tablet (5 sources) Start: 07-15-2024 End: 07-15-2025 take 1 tablet by mouth once daily magnesium oxide (Mag-Ox) 400 mg (241.3 mg magnesium) tablet Indications: Paroxysmal supraventricular tachycardia Take 1 tablet (400 mg) by mouth once daily. 90 tablet 3 07/15/2024 07/15/2025 Active meloxicam 15 mg oral tablet (20 sources) Nonsteroidal Anti-inflammatory Drug Start: 11-09-2022 take 1 tablet by mouth once daily meloxicam (Mobic) 15 MG tablet Indications: Primary osteoarthritis involving multiple joints TAKE 1 TABLET BY MOUTH ONCE DAILY 100 tablet 3 09/13/2023 Active methylPREDNISolone (3 sources) Corticosteroid Start: 05-07-2024 End: 05-14-2024 methylPREDNISolone (Medrol Dospak) 4 MG tablets Indications: Bronchitis Follow schedule on package instructions 21 tablet 05/07/2024 05/14/2024 Active 24 hr metoprolol succinate 50 mg extended release oral tablet (20 sources) beta-Adrenergic Shaina Start: 05-22-2024 take 1 tablet by mouth twice daily metoprolol succinate XL (Toprol-XL) 50 mg 24 hr tablet Take 1 tablet (50 mg) by mouth twice a day. 05/22/2024 Active Start: 05-22-2024 take 1 tablet [...] capsule (20 sources) Tricyclic Antidepressant Start: 10-26-2023 nortriptyline (Pamelor) 10 mg capsule Take 3 capsules (30 mg) by mouth. 10/26/2023 Active Start: 11-09-2022 take 3 capsules by m outh once daily at bedtime nortriptyline (Pamelor) 10 MG capsule Indications: Primary insomnia , Anxiety TAKE 3 CAPSULES BY MOUTH AT BEDTIME ONCE DAILY 270 capsule 3 11/09/2022 Active pantoprazole 40 mg delayed release oral tablet (20 sources) Proton Pump Inhibitor Start: 09-11-2024 take 1 tablet by mouth once daily pantoprazole (ProtoNix) 40 MG EC tablet Indications: Gastroesophageal reflux disease with esophagitis without hemorrhage TAKE 1 TABLET BY MOUTH ONCE DAILY 90 tablet 3 09/11/2024 Active Start: 08-08-2023 take 1 tablet by lori th once daily pantoprazole (ProtoNix) 40 mg EC tablet Take 1 tablet (40 mg) by mouth once daily. 08/08/2023 Active take 1 tablet by lori th once daily pantoprazole (ProtoNix) 40 MG EC tablet TAKE [...] by mouth once daily simvastatin (Zocor) 10 mg tablet Take 1 tablet (10 mg) by mouth once daily. 09/13/2023 Active take 1 tablet by mouth once [place] y simvastatin (Zocor) 10 MG tablet TAKE 1 TABLET BY MOUTH ONCE DAILY for 90 0 Active tiZANidine 4 mg oral tablet (20 sources) Central alpha-2 Adrenergic Agonist Start: 04-16-2024 take 1 tablet by mouth three times daily tiZANidine (Zanaflex) 4 mg tablet Take 1 tablet (4 mg) by mouth 3 times a day. 04/16/2024 Active Start: 04-16-2024 End: 04-16-2024 take 1 tablet [...] tablet (20 sources) gamma-Aminobutyric Acid-ergic Agonist Start: 09-11-2024 take 1 tablet by mouth at bedtime zolpidem (Ambien) 10 MG tablet Indications: Primary insomnia TAKE 1 TABLET BY MOUTH AT BEDTIME 90 tablet 09/11/2024 Active Start: 10-17-2023 End: 09-11-2024 take 1 tablet by mouth once daily at bedtime zolpidem (Ambien) 10 mg tablet Take 1 tablet (10 mg) by mouth once daily at bedtime. 07/03/2024 Active Start: 04-13-2023 take 1 tablet by lori th at bedtime zolpidem (Ambien) 10 MG tablet Indications: Primary insomnia Take 1 tablet (10 mg) by mouth at bedtime 90 tablet 1 04/13/2023 Active Completed/Discontinued Medications Medication Drug Class(es) Dates Sig (Normalized) Sig (Original) regadenoson (Lexiscan) injection 0.4 mg (1 source) Start: 09-18-2024 End: 09-18-2024 0.4 mg, intravenous, Once, On Mon09/18/24 at 1100, For 1 dose Tc-99m tetrofosmin (Myoview) injection 30 millicurie (1 source) Start: 09-18-2024 End: 09-18-2024 30 millicurie, intravenous, Once in imaging, Starting on Mon09/18/24 at 1059, For 1 dose, Administer 45 to 90 minutes prior to imaging unless otherwise indicated. Problems Active Problems Problem Classification Problem Date Documented Da te Episodic/Chronic Abdominal pain (4 sources) Left upper quadrant pain; Translations: [LEFT UPPER QUADRANT PAIN] Onset: 3 Episodic Administrative/social admission (8 sources) First encounter by subject; Translations: [Persons encountering health services in other specified circumstances] Onset: 5 07-15-2024 Episodic Anxiety disorders (20 sources) Anxiety; Translations: [...] [Paroxysmal supraventricular tachycardia] Onset: 3 09-30-2022 Chronic Cardiac dysrhythmias (19 sources) Palpitations; Translations: [Palpitations] Onset: 5 06-11-2024 Episodic Chronic kidney disease (10 sources) Chronic kidney disease stage 3B ; Translations: [Stage 3b chronic kidney disease (HCC) ([facility]/HCC)] Onset: 5 05-22-2024 Chronic Chronic kidney disease (2 sources) Chronic kidney disease; Translations: [Chronic kidney disease, stage 3a (Multi)] Onset: 5 Chronic obstructive pulmonary disease and bronchiectasis (1 source) Bronchiectasis, uncomplicated; Translations: [BRONCHIECTASIS UNCOMPLICATED] Onset: 3 Chronic Chronic obstructive pulmonary disease and bronchiectasis (2 sources) Bronchitis; Translations: [Bronchitis, not specified as acute or chronic] 05-07-2024 Episodic Conditions associated with dizziness or vertigo (14 sources) Lightheadedness; Translations: [Dizziness and giddiness] Onset: 5 07-15-2024 Episodic Congestive heart failure; nonhypertensive (12 sources) Acute congestive heart failure; Translations: [Heart failure, unspecified] 05-15-2024 Chronic Disorders of lipid metabolism (20 sources) Pure hypercholesterolemia, unspecified; Translations: [Hyperlipidemia] Onset: 3 09-30-2022 Chronic Diverticulosis and diverticulitis (20 sources) Diverticulosis of intestine, part unspecified, without perforation or abscess without bleeding; Translations: [Diverticulosis of colon] Onset: 3 09-30-2022 Chronic E Codes: Fall (4 sources) Fall; Translations: [Unspecified fall, initial encounter] [...] lymph nodes] 03-05-2024 Episodic Malaise and fatigue (8 sources) Asthenia; Translations: [Weakness] 05-15-2024 Episodic Menopausal disorders (20 sources) Decreased estrogen level; Translations: [Other primary ovarian failure] Onset: 3 09-30-2022 Chronic Miscellaneous mental health disorders (4 sources) Primary insomnia; Translations: [Primary insomnia] 04-15-2024 Chronic Mycoses (3 sources) Pain in toe; Translations: [Tinea unguium] 02-19-2024 Episodic Nausea and vomiting (1 source) Nausea; Translations: [NAUSEA] Onset: 3 Episodic Nonspecific chest pain (14 sources) Chest discomfort; Translations: [Other chest pain] Onset: 5 07-15-2024 Episodic Nutritional deficiencies (20 sources) Vitamin D deficiency; Translations: [Vitamin D deficiency, unspecified] Onset: 3 09-30-2022 Chronic Occlusion or stenosis of precerebral arteries (20 sources) Carotid artery occlusion; Translations: [Occlusion and stenosis of unspecified carotid artery] Onset: 3 09-30-2022 Chronic Osteoarthritis (20 sources) Osteoarthritis of multiple joints ; Translations: [Polyosteoarthritis, unspecified] Onset: 3 09-30-2022 Chronic Osteoporosis (5 sources) Age-related osteoporosis without current pathological fracture; Translations: [Senile osteoporosis] Onset: 3 08-01-2024 Chronic Other aftercare (1 source) Other watermaster (current) drug therapy; Translations: [OTH PERFORMANCE TEST ENGINEER CURRENT DRUG THERAPY] Onset: 3 Episodic Other [...] Translations: [CONSTIPATION UNSPECIFIED] Onset: 3 Episodic Other injuries and conditions due to external causes (6 sources) At high risk for fall; Translations: [History of falling] Onset: 5 07-15-2024 Episodic Other injuries and conditions due to external causes (2 sources) History of falling; Translations: [History of falling] Onset: 5 Episodic Other lower respiratory disease (2 sources) Fibrosis of lung; Translations: [Pulmonary fibrosis, unspecified] 05-15-2024 Chronic Other lower respiratory disease (6 sources) Cough; Translations: [Acute cough] 04-03-2024 Episodic Other lower respiratory disease (2 sources) Rib pain; Translations: [Pleurodynia] 04-03-2024 Episodic Other lower respiratory disease (4 sources) Dyspnea; Translations: [Shortness of breath] 04-03-2024 [...] 3 09-30-2022 Chronic Other non-traumatic joint disorders (11 sources) Hip pain; Translations: [Pain in joint, pelvic region and thigh] 07-03-2024 Episodic Other non-traumatic joint disorders (1 source) Shoulder pain; Translations: [Pain in joint, shoulder region] Episodic Other non-traumatic joint disorders (2 sources) Pain of right wrist; Translations: [Pain in right wrist] 04-03-2024 Episodic Other nutritional; endocrine; and metabolic disorders (3 sources) Morbid (severe) obesity due to excess calories; [...] Chronic Other nutritional; endocrine; and metabolic disorders (8 sources) Body mass index 40+ - severely obese; Translations: [Body mass index (BMI) 45.0-49.9, adult] Onset: 5 05-07-2024 Chronic Other nutritional; endocrine; and metabolic disorders (2 sources) Hypomagnesemia; Translations: [Hypomagnesemia] 05-22-2024 Chronic Other screening for suspected conditions (not mental disorders or infectious disease) (20 sources) Encounter for screening mammogram for malignant [...] Onset: 3 09-30-2022 Chronic Other upper respiratory disease (2 sources) Seasonal allergic rhinitis; Translations: [Other seasonal allergic rhinitis] 08-01-2024 Chronic Other upper respiratory infections (4 sources) Acute sinusitis; Translations: [Other acute sinusitis] 04-03-2024 Episodic Pneumonia (except that caused by tuberculosis or sexually transmitted disease) (6 sources) Bilateral pneumonia; Translations: [Pneumonia, unspecified organism] 05-15-2024 Episodic Residual codes; unclassified (20 sources) Obstructive sleep apnea syndrome; Translations: [Obstructive sleep apnea (adult) (pediatric)] Onset: 3 09-30-2022 Chronic Residual codes; unclassified (6 sources) Walking aid use - finding; Translations: [Dependence on other enabling machines and devices] Onset: 5 07-15-2024 Chronic Residual codes; unclassified (2 sources) Dependence on other enabling machines and devices; Translations: [Dependence on other enabling machines and devices] Onset: Chronic Residual codes; unclassified (9 sources) H/O: Disorder; Translations: [Personal history of other specified diseases] Episodic Residual codes; unclassified (2 sources) Localized edema; Translations: [Localized edema] 07-11-2024 Episodic Residual codes; unclassified (6 sources) Never smoked tobacco; Translations: [Other specified health status] Onset: 5 07-15-2024 Episodic Residual codes; unclassified (2 sources) Other specified health status; Translations: [Other specified health status] Onset: 5 Episodic Retinal detachments; defects; vascular occlusion; and [...] ACIDOSIS UNSPECIFIED; Translations: [ACIDOSIS UNSPECIFIED] Onset: 3 Unclassified (1 source) First encounter by subject 07-15-2024 Unclassified (2 sources) Supraventricular tachycardia, unspecified; Translations: [Supraventricular tachycardia, unspecified] Onset: 5 Unclassified (1 source) Supraventricular tachycardia, unspecified (CMS-HCC); Translations: [Supraventricular tachycardia, unspecified (CMS-HCC)] Onset: 5 Past or Other Problems Problem Classification Problem Date Documented Date Episodic/Chronic Diabetes mellitus without complication (20 sources) [...] [Low back pain] Onset: 09-30-2022 09-30-2022 Episodic Unclassified (5 sources) Onset: 07-15-2024 07-15-2024 Unclassified (2 sources) Supraventricular tachycardia, unspecified; Translations: [Supraventricular tachycardia, unspecified] Onset: 09-18-2024 Unclassified (1 source) Supraventricular tachycardia, unspecified (CMS-HCC); Translations: [Supraventricular tachycardia, unspecified (CMS-HCC)] Onset: 07-15-2024 NEGATED: Highlighted row has not occurred!Residual codes; unclassified (2 sources) Disease Episodic Results Test Name Value Interpretation Reference Range Facility NUCLEAR STRESS TESTon 2024 NUCLEAR STRESS TEST Interpreted By: David Walls and Jett Inman STUDY: MYOCARDIAL PERFUSION STRESS TEST WITH LEXISCAN Performing facility: [facility], [address], [address], [place] [address] [facility] Provider: Amber Hawley MD, [facility] PCP: Dr. Madelyn Steele Supervising provider: David Castle MD, [facility] INDICATION: Signs/Symptoms:abn ekg, cp, dizziness, m hld. ,R42 Dizziness and giddiness,R07.89 Other chest pain,R00.2 Palpitations,E78.2 Mixed hyperlipidemia HISTORY: Gender: F; Age: 78 y/o ; Height: HT 162.6 cm cm; Weight: WT 122.018 kg kg. Abnormal EKG; High Cholesterol; HTN; Palpitations; Chest Pain; Denies smoking. COMPARISON: No comparison. ACCESSION NUMBER(S): [id number] ORDERING CLINICIAN: AMBER HAWLEY TECHNIQUE: TWO DAY protocol. Stress injection: Date:09-18-24, [...] David Castle 09/19/2024 3:00 PM Dictation workstation: [id number] [facility] TRANSTHORACIC ECHO (TTE) COM PLETEon 09-18-2024 TRANSTHORACIC ECHO (TTE) COMPLETE [facility] [address], [address], [place] [address] TRANSTHORACIC ECHOCARDIOGRAM REPORT Patient Name: LUMA Joya GEMA Reading Physician: [id number] David Castle MD, [facility] Study Date: 09/18/2024 Ordering Provider: [id number] AMBER HAWLEY MRN/PID: [id number] Fellow: Nurse: Date of /Age: 7 1945 / 78 Eye Specialist: Viry ely RDCS, RVT Gender Assigned at F Additional Staff: : Height: 162.56 cm Admit Date: Weight: 122.02 kg Admission Status: Outpatient BSA / BMI: 2.22 m2 / 46.17 Department Location: [facility] kg/m2 [place] Blood Pressure: 124 /86 mmHg Study Type: TRANSTHORACIC ECHO (TTE) COMPLETE Diagnosis/ICD: Supraventricular tachycardia-I47.1; Abnormal electrocardiogram [ECG] [EKG]-R94.31; Palpitations-R00.2 Indication: Edema, HTN, Hyperlipidemia, Carotid Stenosis, CARO, CKD-Stage III, Morbid Obesity CPT Codes: Echo Complete w Full Doppler-[id number] Study Detail: The following Echo studies were [...] AoV Mean P.6 mmHg (1.7-11.5mmHg) LVOT Max Malinda: 1.19 m/s (<=1.1m/s) AoV VTI: 48.18 cm (18-25cm) LVOT VTI: 22.96 cm LVOT Diameter: 2.27 cm (1.8-2.4cm) AoV Area, VTI: 1.93 cm2 (2.5-5.5cm2) AoV Area,Vmax: 2.65 cm2 (2.5-4.5cm2) AoV Dimensionless Index: 0.48 AORTIC INSUFFICIENCY: AI Vmax: 3.51 m/s AI Half-time: 301 msec AI Decel Time: 1037 msec AI Decel Rate: 338.04 c (more content not included)... Normal [facility] US Heart TransthoracicOrdere d By: David Castle on 09-18-2024 Aortic Valve Area by Continuity of Peak Velocity 2.65 cm2 [facility] Work Phone: [phone] Aortic Valve Area by Continuity of VTI 1.93 cm2 [facility] Work Phone: [phone] AV mn grad 7 mmHg [facility] Work Phone: [phone] AV pk grad 13 mmHg [facility] Work Phone: [phone] AV pk malinda 1.81 m/s [facility] Work Phone: [phone] LA vol index A/L 44.1 ml/m2 [facility] Work Phone: [phone] LV A4C EF 42.7 [facility] Work Phone: [phone] LV Biplane EF 36 % [facility] Work Phone: [phone] LV EF 63 % [facility] Work Phone: [phone] LVIDd 4.66 cm [facility] Work Phone: [phone] LVOT diam 2.27 cm [facility] Work Phone: [phone] MV avg E/e' ratio 26.81 [facility] Work Phone: [phone] MV E/A ratio 0.79 [facility] Work Phone: [phone] RV free wall pk S' 15.98 cm/s [facility] Work Phone: [phone] [facility] Work Phone: [phone] Heart Transthoracicon 60 [address], [address] [facility] [place], [place] [address] TRANSTHORACIC ECHOCARDIOGRAM REPORT Patient Name: LUMA Deal Physician: [id number] David Castle MD, [facility] Study Date: 09/18/2024 Ordering Provider: [id number] AMBER HAWLEY MRN/PID: [id number] Fellow: Nurse: Date of /Age: 7 1945 / 78 Eye Specialist: Viry ely RDCS, RVT Gender Assigned at F Additional Staff: : Height: 162.56 cm Admit Date: Weight: 122.02 kg Admission Status: Outpatient BSA / BMI: 2.22 m2 / 46.17 Department Location: [facility] kg/m2 [place] Blood Pressure: 124 /86 mmHg Study Type: TRANSTHORACIC ECHO (TTE) COMPLETE Diagnosis/ICD: Supraventricular tachycardia-I47.1; Abnormal electrocardiogram [ECG] [EKG]-R94.31; Palpitations-R00.2 Indication: Edema, HTN, Hyperlipidemia, Carotid Stenosis, CARO, CKD-Stage III, Morbid Obesity CPT Codes: Echo Complete w Full Doppler-11705 Study Detail: The following Echo studies were [...] medial e' 0.03 m/s E/e' Ratio: 26.81 (more content not included)... David Mortensen M D - 09/18/2024 [facility] [address] [facility], [address], [place] [address] TRANSTHORACIC ECHOCARDIOGRAM REPORT Patient Name: LUMA Joya GEMA Deal Physician: [id number] David Castle MD, [facility] Study Date: 09/18/2024 Ordering Provider: [id number] AMBER HAWLEY MRN/PID: [id number] Fellow: Nurse: Date of /Age: 7 1945 Eye Specialist: Viry ely RDCS, RVT Gender Assigned at F Additional Staff: : Height: 162.56 cm Admit Date: Weight: 122.02 kg Admission Status: Outpatient BSA / BMI: 2.22 m2 / 46.17 Department Location: [facility] kg/m2 [place] Blood Pressure: 124 /86 mmHg Study Type: TRANSTHORACIC ECHO (TTE) COMPLETE Diagnosis/ICD: Supraventricular tachycardia-I47.1; Abnormal electrocardiogram [ECG] [EKG]-R94.31; Palpitations-R00.2 Indication: Edema, HTN, Hyperlipidemia, Carotid Stenosis, CARO, CKD-Stage III, Morbid Obesity CPT Codes: Echo Complete w Full Doppler-80355 Study Detail: The following Echo studies were [...] AoV Mean P.6 mmHg (1.7-11.5mmHg) LVOT Max Malinda: 1.19 m/s (<=1.1m/s) AoV VTI: 48.18 cm (18-25cm) LVOT VTI: 22.96 cm LVOT Diameter: 2.27 cm (1.8-2.4cm) AoV Area, VTI: 1.93 cm2 (2.5-5.5cm2) AoV Area,Vmax: 2.65 cm2 (2.5-4.5cm2) AoV Dimensionless Index: 0.48 AORTI (more content not included)... [facility] Work Phone: LIPID PANEL, STANDARDon 06-30 Cholesterol [Mass/Vol] 153 mg/dL Normal <200 [facility] Comment on above: Order Comment: COLLE CTION KIT GIVEN TO PATIENT. PATIENT ADVISED TO RETURN. Performed By: #### 7 600 #### [facility] [address], [address] [place] [id number] Wheelchair Driver: Bryce Larsen MD Cholesterol in HDL [Mass/Vol] 49 mg/dL Low > OR = 50 [facility] Comment on above: Order Comment: COLLE CTION KIT GIVEN TO PATIENT. PATIENT ADVISED TO RETURN. Performed By: #### 7 600 #### [facility] [address], [address] [place] [address] Wheelchair Driver: Bryce Larsen MD Cholesterol in LDL [Mass/Vol] 82 mg/dL Normal [facility] Comment on above: Order Comment: COLLE CTION KIT GIVEN TO PATIENT. PATIENT ADVISED TO RETURN. Result Comment: Refe rence range: <100 Desirable range <100 mg/dL for primary prevention; <70 mg/dL for patients with CHD or diabetic patients with > or = 2 CHD risk factors. LDL-C is now calculated using the Fred calculation, which is a validated novel method providing better accuracy than the Friedewald equation in the estimation of LDL-C. Mike SS et al. MARGO. 2013;310(19): 6341-9971 (http://education.VMob.Informantonline/faq/SFR204) Performed By: #### 7 600 #### [facility] [address], [address] [place] [address] Wheelchair Driver: Bryce Larsen MD Cholesterol.total/Cho lesterol in HDL [Mass ratio] 3.1 {ratio} Normal <5.0 [facility] Comment on above: Order Comment: COLLE CTION KIT GIVEN TO PATIENT. PATIENT ADVISED TO RETURN. Performed By: #### 7 600 #### [facility] [address], [address] [place] [address] Wheelchair Driver: Bryce Larsen MD NON HDL CHOLESTEROL 104 mg/dL (calc) Normal <130 [facility] Comment on above: Order Comment: COLLE CTION KIT GIVEN TO PATIENT. PATIENT ADVISED TO RETURN. Result Comment: For patients with diabetes plus 1 major ASCVD risk factor, treating to a non-HDL-C goal of <100 mg/dL (LDL-C of <70 mg/dL) is considered a therapeutic option. Performed By: #### 7 600 #### [facility] [address], [address] [place] [address] Wheelchair Driver: Bryce Larsen MD Triglyceride [Mass/Vol] 121 mg/dL Normal <150 [facility] Comment on above: Order Comment: COLLE CTION KIT GIVEN TO PATIENT. PATIENT ADVISED TO RETURN. Performed By: #### 7 600 #### [facility] [address] [facility], [address] [place] [address] Wheelchair Driver: Bryce Larsen MD DEXA BONE DENSITYon 07-27-19 DEXA BONE DENSITY Examination: DEXA CHOCO NE DENSITY Clinical History: Other primary ovarian failure [...] ELECTRONICALLY SIGNED BY: Juan Carlos Squires M.D. Normal Not Available MM TOMOSYNTHESIS SCREENING B Ion 07-18-2024 [place] [address] Mammography Report Signed Patient: LUMA RIBEIRO MR#: [id number] : 1945 Acct:[id number] Age/Sex: 78 / F ADM Date: 07/17/24 Loc: MAMMO Attending Dr: ROC STEELE Ordering Physician: ROC STEELE Results: Date of Service: 07/17/24 Follow Up: Procedure(s): MM tomosynthesis screening BI Accession Number(s): [id number] cc: ROC STEELE Patient Name: LUMA RIBEIRO MR#: [id number] : 1945 Exam Date: 07/17/2024 Ordering Doctor: [...] breast cancer at age 61. LOCATION: [facility] BREAST COMPOSITION: There are scattered areas of [...] Signed By: 07/18/24 1620 DD/ 1619 TD/TT: Firer Automatic Stoker: [facility] Radiology, Radiologmekhi salguero MD - 07/18/2024 [place] [address] Mammography Report Signed Patient: LUMA RIBEIRO MR#: [id number] : 1945 Acct:[id number] Age/Sex: 78 / F ADM Date: 07/17/24 Loc: MAMMO Attending Dr: ROC STEELE Ordering Physician: ROC STEELE Results: Date of Service: 07/17/24 Follow Up: Procedure(s): MM tomosynthesis screening BI Accession Number(s): [id number] cc: ROC STEELE Patient Name: LUMA RIBEIRO MR#: [id number] : 1945 Exam Date: 07/17/2024 Ordering Doctor: [...] breast cancer at age 61. LOCATION: [facility] BREAST COMPOSITION: There are scattered areas of [...] Signed By: 07/18/24 1620 DD/ 1619 TD/TT: Firer Automatic Stoker: [facility] shoutr Radiology Study observation (narrative) [facility] MM TOMOSYNTHESIS SCREENING B IOrdered By: Radiologist Radiology on 07-18-2024 [facility] Work Phone: ECG 12 Leadon 07-15-2024 [facility] Work Phone: [facility] Work Phone: Laboratory - Hematology and Cell countson 07-11-2024 HbA1c (Bld) [Mass fraction] 6.1 % [facility] shout[facility] No Panel Informationon 07-11 [facility] XR HIP 2 OR 3 VW RIGHTon XR HIP 2 OR 3 VW RIGHT EXAM: XR HIP 2 OR 3 VW [...] signed and approved by the interpreting Radiologist. Normal Not Available COMPREHENSIVE METABOLIC PANE Kit 07-04-2024 Albumin [Mass/Vol] 4.0 g/dL Normal 3.6-5.1 [facility] Comment on above: Performed By: #### 1 3481, 622 #### [facility] [address], [address] [place] [address] Wheelchair Driver: Bryce Larsen MD Albumin/Globulin [Mass ratio] 1.7 {ratio} Normal 1.0-2.5 [facility] Comment on above: Performed By: #### 1 230, 622 #### [facility] [place] [address] Wheelchair Driver: Bryce Larsen MD ALP [Catalytic activity/Vol] 99 U/L Normal 37-153 [facility] Comment on above: Performed By: #### 1 230, 622 #### [facility] [place] [address] Wheelchair Driver: Bryce Larsen MD ALT [Catalytic activity/Vol] 8 U/L Normal 6-29 [facility] Comment on above: Performed By: #### 1 230, 622 #### [facility] [place] [address] Wheelchair Driver: Bryce Larsen MD AST [Catalytic activity/Vol] 19 U/L Normal 10-35 [facility] Comment on above: Performed By: #### 1 230, 622 #### [facility] [place] [address] Wheelchair Driver: Bryce Larsen MD Bilirubin [Mass/Vol] 0.6 mg/dL Normal 0.2-1.2 [facility] Comment on above: Performed By: #### 1 230, 622 #### [facility] [place] [address] Wheelchair Driver: Bryce Larsen MD Calcium [Mass/Vol] 8.9 mg/dL Normal 8.6-10.4 [facility] Comment on above: Performed By: #### 1 230, 622 #### [facility] [place] [address] Wheelchair Driver: Bryce Larsen MD Chloride [Moles/Vol] 104 mmol/L Normal 98-110 [facility] Comment on above: Performed By: #### 1 230, 622 #### [facility] [address], [address] [place] [address] Wheelchair Driver: Bryce Larsen MD CO2 [Moles/Vol] 27 mmol/L Normal 20-32 [facility] Comment on above: Performed By: #### 1 230, 622 #### [facility] [address], [address] [place] [address] Wheelchair Driver: Bryce Larsen MD Creatinine [Mass/Vol] 1.11 mg/dL High 0.60-1.[address] [facility] Comment on above: Performed By: #### 1 230, 622 #### [facility] [place] [address] Wheelchair Driver: Bryce Larsen MD GFR/1.73 sq M.predicted among non-blacks MDRD (S/P/Bld) [Vol rate/Area] 51 mL/min/{1.73_m2} Low > OR = 60 [facility] Comment on above: Performed By: #### 1 230, 622 #### [facility] [address], [address] [place] [address] Wheelchair Driver: Bryce Larsen MD Globulin (S) [Mass/Vol] 2.3 g/dL Normal 1.9-3.7 [facility] Comment on above: Performed By: #### 1 230, 622 #### [facility] [place] [address] Wheelchair Driver: Bryce Larsen MD Glucose [Mass/Vol] 145 mg/dL High 65-139 [facility] Comment on above: Result Comment: Non-fasting reference interval For someone without known diabetes, a glucose value >125 mg/dL indicates that they may have diabetes and this should be confirmed with a follow-up test. Performed By: #### 1 230, 622 #### [facility] [address], [address] [place] [address] Wheelchair Driver: Bryce Larsen MD Potassium [Moles/Vol] 4.2 mmol/L Normal 3.5-5.[address] [facility] Comment on above: Performed By: #### 1 023, 622 #### [facility] [place] [address] Wheelchair Driver: Bryce Larsen MD Protein [Mass/Vol] 6.3 g/dL Normal 6.1-8.1 [facility] Comment on above: Performed By: #### 1 0231, 622 #### [facility] [place] [address] Wheelchair Driver: Bryce Larsen MD Sodium [Moles/Vol] 138 mmol/L Normal 135-146 [facility] Comment on above: Performed By: #### 1 0231, 622 #### [facility] [place] [address] Wheelchair Driver: Bryce Larsen MD Urea nitrogen [Mass/Vol] 19 mg/dL Normal 7-25 [facility] Comment on above: Performed By: #### 1 230, 622 #### [facility] [place] [address] Wheelchair Driver: Bryce Larsen MD Urea nitrogen/Creatinine [Mass ratio] 17 mg/mg Normal 6-22 [facility] Comment on above: Performed By: #### 1 230, 622 #### [facility] [place] [address] Wheelchair Driver: Bryce Larsen MD MAGNESIUMon 07-04-2024 Magnesium [Mass/Vol] 2.0 mg/dL Normal 1.5-2.5 [facility] Comment on above: Order Comment: FASTI NG:NO FASTING: NO Performed By: #### 1 1, 622 #### [facility] [place] [address] Wheelchair Driver: Bryce Larsen MD B TYPE NATRIURETIC PEPTIDE ( BNP)on 06-12-2024 Natriuretic peptide B (Bld) [Mass/Vol] 108 pg/mL High <100 [facility] Comment on above: Result Comment: BNP levels increase with age in the general population with the highest values seen in individuals greater than 75 years of age. Reference: J. Am. Vladislav. Cardiol. 2002; 40:976-982. Performed By: #### 3 7386 #### [facility] [place] [address] Wheelchair Driver: Bryce Larsen MD [facility] 05-23-2024 Albumin [Mass/Vol] 3.6 g/dL Normal 3.6-5.1 [facility] Comment on above: Performed By: #### 6 , 39420 #### [facility] [place] [address] Wheelchair Driver: Bryce Larsen MD Albumin/Globulin [Mass ratio] 1.3 {ratio} Normal 1.0-2.5 [facility] Comment on above: Performed By: #### 6 , 79751 #### [facility] [place] [address] Wheelchair Driver: Bryce Larsen MD ALP [Catalytic activity/Vol] 87 U/L Normal 37-153 [facility] Comment on above: Performed By: #### 6 , 18349 #### [facility] [place] [address] Wheelchair Driver: Bryce Larsen MD ALT [Catalytic activity/Vol] 15 U/L Normal 6-29 [facility] Comment on above: Performed By: #### 6 , 15266 #### [facility] [place] [address] Wheelchair Driver: Bryce Larsen MD AST [Catalytic activity/Vol] 31 U/L Normal 10-35 [facility] Comment on above: Performed By: #### 6 , 29912 #### [facility] [place] [address] Wheelchair Driver: Bryce Larsen MD Bilirubin [Mass/Vol] 0.5 mg/dL Normal 0.2-1.2 [facility] Comment on above: Performed By: #### 6 , 75658 #### [facility] [place] [address] Wheelchair Driver: Bryce Larsen MD Calcium [Mass/Vol] 9.1 mg/dL Normal 8.6-10.4 [facility] Comment on above: Performed By: #### 6 22, 28048 #### [facility] [place] [address] Wheelchair Driver: Bryce Larsen MD Chloride [Moles/Vol] 103 mmol/L Normal 98-110 [facility] Comment on above: Performed By: #### 6 , 24067 #### [facility] [place] [address] Wheelchair Driver: Bryce Larsen MD CO2 [Moles/Vol] 27 mmol/L Normal 20-32 [facility] Comment on above: Performed By: #### 6 , 65757 #### [facility] [place] [address] Wheelchair Driver: Bryce Larsen MD Creatinine [Mass/Vol] 1.04 mg/dL High 0.60-1.[address] [facility] Comment on above: Performed By: #### 6 , 19563 #### [facility] [place] [address] Wheelchair Driver: Bryce Larsen MD GFR/1.73 sq M.predicted among non-blacks MDRD (S/P/Bld) [Vol rate/Area] 55 mL/min/{1.73_m2} Low > OR = 60 [facility] Comment on above: Performed By: #### 6 22, 25138 #### [facility] [place] [address] Wheelchair Driver: Bryce Larsen MD Globulin (S) [Mass/Vol] 2.7 g/dL Normal 1.9-3.7 [facility] Comment on above: Performed By: #### 6 , 65634 #### [place] [address] Wheelchair Driver: Bryce Larsen MD Glucose [Mass/Vol] 73 mg/dL Normal 65-139 [facility] Comment on above: Result Comment: Non-fasting reference interval Performed By: #### 6 22, 69715 #### [facility] [place] [address] Wheelchair Driver: Bryce Larsen MD Potassium [Moles/Vol] 4.7 mmol/L Normal 3.5-5.[address] [facility] Comment on above: Performed By: #### 6 22, 59484 #### [facility] [place] [address] Wheelchair Driver: Bryce Larsen MD Protein [Mass/Vol] 6.3 g/dL Normal 6.1-8.1 [facility] Comment on above: Performed By: #### 6 , 51639 #### [facility] [place] [address] Wheelchair Driver: Bryce Larsen MD Sodium [Moles/Vol] 137 mmol/L Normal 135-146 [facility] Comment on above: Performed By: #### 6 22, 40157 #### [facility] [place] [address] Wheelchair Driver: Bryce Larsen MD Urea nitrogen [Mass/Vol] 15 mg/dL Normal 7-25 [facility] Comment on above: Performed By: #### 6 , 66118 #### [facility] [place] [address] Wheelchair Driver: Bryce Larsen MD Urea nitrogen/Creatinine [Mass ratio] 14 mg/mg Normal 6-22 [facility] Comment on above: Performed By: #### 6 22, 36124 #### [facility] [place] [address] Wheelchair Driver: Bryce Larsen MD MAGNESIUMon 05-23-2024 Magnesium [Mass/Vol] 1.9 mg/dL Normal 1.5-2.5 [facility] Comment on above: Order Comment: FASTI NG:NO FASTING: NO Performed By: #### 6 22, 70518 #### [facility] [address] [facility], [address] [place] [address] Wheelchair Driver: Bryce Larsen MD ALL BASIC METABOLIC PANELon 05-16-2024 Anion gap [Moles/Vol] 12 mmol/L [facility] Calcium [Mass/Vol] 9 mg/dL 8.5 - 10. 1 mg/dL [facility] Chloride [Moles/Vol] 98 mmol/L 98 - 10 7 mmol/L [facility] CO2 [Moles/Vol] 29.6 mmol/L 21.0 - 32.0 mmol/L [facility] Creatinine [Mass/Vol] 1.42 mg/dL High 0.55 - 1.02 mg/dL [facility] GFR/1.73 sq M.predicted CKD-EPI (S/P/Bld) [Vol rate/Area] 43 Low >=60 mL/min/1.7 3m 2 [facility] Glucose [Mass/Vol] 74 mg/dL 74 - 106 mg/dL [facility] Interpretation and review of laboratory results Abnormal [facility] Potassium [Moles/Vol] 3.6 mmol/L 3.5 - 5.1 mmol/L [facility] Sodium [Moles/Vol] 136 mmol/L 136 - 145 mmol/L [facility] TBH EGFR-NON AF KENYAN 36 Low >=60 mL/min/1.7 3m 2 [facility] Urea nitrogen [Mass/Vol] 36 mg/dL High 7.0 - 18.0 mg/dL [facility] Urea nitrogen/Creatinine [Mass ratio] 25.4 mg/mg [facility] XR chest 2V*on 04-29-2024 XR chest 2V* [facility] [place] [address] XRay Report Signed Patient: Luma Ribeiro MR#: [id number] : 1945 Acct:[id number] Age/Sex: 78 / F ADM Date: 04/29/24 Loc: XDUCLY Room: Type: [facility] CLI 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 Copies to: Mala Sapp APRN Ordering Provider: [...] R Christopher M.D.04/29/2024 4:00 PM Dictation Location: [place] [address] Transcribed By: [facility] 04/29/24 1600 Dictated By: Jose R Christopher DO 04/29/24 1559 Signed By: 04/29/24 1600 Normal [facility] XR CHEST 2 VIEWSon XR [...] de hand and wrist [facility] Nerveson 03-07-2024 [facility] Established Visit (Orthopaed ic [...] Complaint RT shoulder Ongoing issue 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 Distal pulses and sensation are intact. Limited forward flexion to about 25 degrees lateral abduction to about 15 unable to perform any external rotation but internal he can get to the small of her back. Her exam does not allow for much of a true Neer's Shelby or Comfort's test. Diagnostics: See dictated report from today, previous outside CT scan report of the humerus reviewed, and is available in the [facility] chart. 1 Procedure: None Assessment: Chronic shoulder [...] the patient's CT scan report reviewed in [facility] chart Other 1 than the anterior medial [...] grammatical areas may persist related to the Chideoon software (more content not included)... Normal [facility] 10-04-2022 XR Shoulder 2 Views Normal [facility] Work Phone: SHOULDER, CMPLT, MIN 2 VIEWS on 10-04-2022 SHOULDER, CMPLT, MIN 2 VIEWS Patient Name: LUMA RIBEIRO STUDY: SHOULDER, CMPLT, MIN 2 VIEWS; Right; 10/04/2022 1:49 pm INDICATION: pain M25.519: Shoulder pain. ACCESSION NUMBER(S): [id number] ORDERING CLINICIAN: TANIYA AL FINDINGS: Multiple views right shoulder demonstrate severe [...] chronic anteromedial dislocation. Electronically signed by: TANIYA AL MD Normal [facility] CT HUMERUS RIGHT W/O CONTRAS Ton [...] by Pernell Wiley on 09/12/2022 1127 Normal [facility] XR Chest 2 Views*on 09-13-19 23 [...] by Pernell Wiley on 09/12/2022 1101 Normal [facility] XR CHEST 2 Von 09-05-2022 XR [...] ISAEL HANSEN Date: 2022-09-05 15:11 Normal [facility] XR KUB 1 VIEWon 09-05-2022 XR KUB [...] by: ISAEL HANSEN Date: 2022-09-05 15:10 Normal [facility] AMYLASEon 09-03-2022 Amylase [Catalytic activity/Vol] 34 U/L Normal 25-115 [facility] Comment on above: Performed By: #### L IPA, CMP, CMADM, BNP, GRACIELA #### [facility] [address] [place] [address] Dr. Yonny Meza BNPon 09-03-2022 Natriuretic peptide B (Bld) [Mass/Vol] 241.0 pg/mL Normal <=1,800.0 [facility] Comment on above: Performed By: #### L IPA, CMP, CMADM, BNP, GRACIELA #### [facility] [address] [place] [address] Dr. Yonny Meza CARDIAC SRINIVASA ADMITon 023 CK [Catalytic activity/Vol] 154 U/L Normal 26-192 [facility] Comment on above: Performed By: #### L IPA, CMP, CMADM, BNP, GRACIELA #### [facility] [address] [place] [address] Dr. Yonny Meza CK.MB [Mass/Vol] 1.42 ng/mL Normal <=3.60 [facility] Comment on above: Performed By: #### L IPA, CMP, CMADM, BNP, GRACIELA #### [facility] [address] [place] [address] Dr. Yonny Meza HSTROP 13.9 pg/mL Normal 4.0-51.3 [facility] Comment on above: Result Comment: CUT- OFF POINTS HAVE BEEN ESTABLISHED BASED ON THE FOURTH UNIVERSAL DEFINITIONS OF MYOCARDIAL INFARCTION. THE UPPER REFERENCE LIMIT (URL) OF TROPONIN, DEFINED THE 99TH PERCENTILE OF cTnI DISTRIBUTION IN A REFERENCE POPULATION, HAS BEEN CONFIRMED THE DECISION THRESHOLD FOR DC DIAGNOSIS. Performed By: #### L IPA, CMP, CMADM, BNP, GRACIELA #### [facility] [address] [place] [address] Dr. Yonny Meza DARION 63 ng/mL Normal 9-82 [facility] Comment on above: Performed By: #### L IPA, CMP, CMADM, BNP, GRACIELA #### [facility] [address] [place] [address] Dr. Yonny Meza CBC AUTO DIFFon 09-03-2022 BASO # 0.0 103/ul Normal 0.0-0.1 [facility] Comment on above: Performed By: #### L IPA, CMP, CMADM, BNP, GRACIELA #### [facility] [address] [place] [address] Dr. Yonny Meza Basophils/100 WBC (Bld) 0.4 % Normal 0.2-2.0 [facility] Comment on above: Performed By: #### L IPA, CMP, CMADM, BNP, GRACIELA #### [facility] [address] [place] [address] Dr. Yonny Meza EO # 0.1 103/ul Normal 0.0-0.7 [facility] Comment on above: Performed By: #### L IPA, CMP, CMADM, BNP, GRACIELA #### [facility] [address] [place] [address] Dr. Yonny Meza Eosinophils/100 WBC (Bld) 1.6 % Normal 0.9-7.0 [facility] Comment on above: Performed By: #### L IPA, CMP, CMADM, BNP, GRACIELA #### [facility] [address] [place] [address] Dr. Yonny Meza Erythrocyte distribution width (RBC) [Ratio] 12.6 % Normal 11.0-15.0 [facility] Comment on above: Performed By: #### L IPA, CMP, CMADM, BNP, GRACIELA #### [facility] [address] [place] [address] Dr. Yonny Meza Hematocrit (Bld) [Volume fraction] 38.9 % Normal 36.0-48.0 [facility] Comment on above: Performed By: #### L IPA, CMP, CMADM, BNP, GRACIELA #### [facility] [address] [place] [address] Dr. Yonny Meza Hemoglobin (Bld) [Mass/Vol] 13.0 g/dL Normal 12.0-16.0 [facility] Comment on above: Performed By: #### L IPA, CMP, CMADM, BNP, GRACIELA #### [facility] [address] [place] [address] Dr. Yonny Meza IG # 0.02 10e3/ul Normal 0.00-0.03 [facility] Comment on above: Performed By: #### L IPA, CMP, CMADM, BNP, GRACIELA #### [facility] [address] [place] [address] Dr. Yonny Meza IG % 0.3 % Normal 0.0-0.5 [facility] Comment on above: Performed By: #### L IPA, CMP, CMADM, BNP, GRACIELA #### [facility] [address] [place] [address] Dr. Yonny Meza LYMPH # 2.0 103/ul Normal 1.2-3.8 [facility] Comment on above: Performed By: #### L IPA, CMP, CMADM, BNP, GRACIELA #### [facility] [address] [place] [address] Dr. Yonny Meza Lymphocytes/100 WBC (Bld) 25.3 % Normal 20.5-60.0 [facility] Comment on above: Performed By: #### L IPA, CMP, CMADM, BNP, GRACIELA #### [facility] [address] [place] [address] Dr. Yonny Meza MANUAL DIFF REQ NO Normal [facility] Comment on above: Performed By: #### L IPA, CMP, CMADM, BNP, GRACIELA #### [facility] [address] [place] [address] Dr. Yonny Meza MCH (RBC) [Entitic mass] 31.8 pg Normal 26.7-34.0 [facility] Comment on above: Performed By: #### L IPA, CMP, CMADM, BNP, GRACIELA #### [facility] [address] [place] [address] Dr. Yonny Meza MCHC (RBC) [Mass/Vol] 33.4 g/dL Normal 29.9-35.2 [facility] Comment on above: Performed By: #### L IPA, CMP, CMADM, BNP, GRACIELA #### [facility] [address] [place] [address] Dr. Yonny Meza MCV (RBC) [Entitic vol] 95.1 fL Normal 81.0-99.0 [facility] Comment on above: Performed By: #### L IPA, CMP, CMADM, BNP, GRACIELA #### [facility] [address] [address] [address] Yonny Meaz MONO # 0.9 103/ul Critically high 0.3-0.8 [facility] Comment on above: Performed By: #### L IPA, CMP, CMADM, BNP, GRAICELA #### [facility] [address] [place] [address] Dr. Yonny Meza Monocytes/100 WBC (Bld) 11.5 % Normal 1.7-12.0 [facility] Comment on above: Performed By: #### L IPA, CMP, CMADM, BNP, GRACIELA #### [facility] [address] [place] [address] Dr. Yonny Meza NEUT # 4.8 103/ul Normal 1.4-6.5 [facility] Comment on above: Performed By: #### L IPA, CMP, CMADM, BNP, GRACIELA #### [facility] [address] [place] [address] Dr. Yonny Meza Neutrophils/100 WBC (Bld) 60.9 % Normal 43.0-75.0 [facility] Comment on above: Performed By: #### L IPA, CMP, CMADM, BNP, GRACIELA #### [facility] [address] [place] [address] Dr. Yonny Meza Platelet mean volume (Bld) [Entitic vol] 10.1 fL Normal 9.5-13.5 [facility] Comment on above: Performed By: #### L IPA, CMP, CMADM, BNP, GRACIELA #### [facility] [address] [place] [address] Dr. Yonny Meza PLT 252 103/ul Normal 150-450 [facility] Comment on above: Performed By: #### L IPA, CMP, CMADM, BNP, GRACIELA #### [facility] [address] [place] [address] Dr. Yonny Meza RBC 4.09 106/ul Critically low 4.20-5.40 [facility] Comment on above: Performed By: #### L IPA, CMP, CMADM, BNP, GRACIELA #### [facility] [address] [place], [place] [address] Dr. Yonny Meza WBC 7.9 103/ul Normal 4.0-11.0 [facility] Comment on above: Performed By: #### L IPA, CMP, CMADM, BNP, GRACIELA #### [facility] [address] [place], [place] [address] ABD/PELVIS WO CONon 09-03 CT ABD/PELVIS WO CON EXAM: CT SCAN OF TH E ABDOMEN AND PELVIS WITHOUT IV CONTRAST DATE [...] [place] Date: 2022-09-03 01:11 Normal [facility] ER URINE PROFILEon 3 Bilirubin Ql (U) Negative Normal NEGATIVE [facility] Comment on above: Performed By: #### L IPA, CMP, CMADM, BNP, GRACIELA #### [facility] [address] [address] [address] Yonny Meza Clarity (U) CLEAR Normal CLEAR [facility] Comment on above: Performed By: #### L IPA, CMP, CMADM, BNP, GRACIELA #### [facility] [address] [address] [address] Yonny Meza Color (U) LT. YELLOW Normal YELLOW [facility] Comment on above: Performed By: #### L IPA, CMP, CMADM, BNP, GRACIELA #### [facility] [address] [address] [address] Yonny Meza ERUAHD A micrscopic examina tion will be performed if indicated. Normal [facility] Comment on above: Performed By: #### L IPA, CMP, CMADM, BNP, GRACIELA #### [facility] [address] [address] [address] Yonny Meza Glucose Ql (U) Negative Normal NEGATIVE [facility] Comment on above: Performed By: #### L IPA, CMP, CMADM, BNP, GRACIELA #### [facility] [address] [address] [address] Yonny Meza Hemoglobin Ql (U) Negative Normal NEGATIVE [facility] Comment on above: Performed By: #### L IPA, CMP, CMADM, BNP, GRACIELA #### [facility] [address] [address] [address] Yonny Meza Ketones Ql (U) Negative Normal NEGATIVE [facility] Comment on above: Performed By: #### L IPA, CMP, CMADM, BNP, GRACIELA #### [facility] [address] [address] [address] Yonny Meza LEUKOCYTES Negative Normal NEGATIVE [facility] Comment on above: Performed By: #### L IPA, CMP, CMADM, BNP, GRACIELA #### [facility] [address] [address] [address] Yonny Meza Nitrite Ql (U) Negative Normal NEGATIVE [facility] Comment on above: Performed By: #### L IPA, CMP, CMADM, BNP, GRACIELA #### [facility] [address] [place] [address] Dr. Yonny Meza pH (U) 7.0 [pH] Normal 5-9 [facility] Comment on above: Performed By: #### L IPA, CMP, CMADM, BNP, GRACIELA #### [facility] [address] [address] [address] Yonny Meza SPEC GRAVITY 1.015 Normal 1.005-<=1. 025 [facility] Comment on above: Performed By: #### L IPA, CMP, CMADM, BNP, GRACIELA #### [facility] [address] [address] [address] Yonyn Meza UA PROTEIN Negative Normal NEGATIVE/ TRACE [facility] Comment on above: Performed By: #### L IPA, CMP, CMADM, BNP, GRACIELA #### [facility] [address] [address] [address] Yonny Meza UR MICRO IND NOT INDICATED Normal [facility] Comment on above: Performed By: #### L IPA, CMP, CMADM, BNP, GRACIELA #### [facility] [address] [address] [address] Yonny Meza Urobilinogen Qn (U) 0.2 {Arnaud'U}/dL Normal 0.2 - 1. 0 [facility] Comment on above: Performed By: #### L IPA, CMP, CMADM, BNP, GRACIELA #### [facility] [address] [place] [address] Dr. Yonny Meza LACTATE/LACTIC ACIDon 2022 Lactate [Moles/Vol] 2.3 mmol/L Critically high 0.4-2.0 [facility] Comment on above: Performed By: #### L ACT #### [facility] [address] [place] [address] Dr. Yonny Meza Lactate [Moles/Vol] 2.2 mmol/L Critically high 0.4-2.0 [facility] Comment on above: Performed By: #### L IPA, CMP, CMADM, BNP, GRACIELA #### [facility] [address] [place] [address] Dr. Yonny Meza LIPASEon 09-03-2022 Lipase [Catalytic activity/Vol] 88.0 U/L Normal 73.0-393.0 [facility] Comment on above: Performed By: #### L IPA, CMP, CMADM, BNP, GRACIELA #### [facility] [address] [place] [address] Dr. Yonny Meza PROF 14(COMP METB)on 023 Albumin [Mass/Vol] 3.3 g/dL Critically low 3.4-5.0 [facility] Comment on above: Performed By: #### L IPA, CMP, CMADM, BNP, GRACIELA #### [facility] [address] [place] [address] Dr. Yonny Meza Albumin/Globulin [Mass ratio] 0.9 {ratio} Normal [facility] Comment on above: Performed By: #### L IPA, CMP, CMADM, BNP, GRACIELA #### [facility] [address] [place] [address] Dr. Yonny Meza ALP [Catalytic activity/Vol] 122 U/L Critically high 46-116 [facility] Comment on above: Performed By: #### L IPA, CMP, CMADM, BNP, GRACIELA #### [facility] [address] [place] [address] Dr. Yonny Meza ALT [Catalytic activity/Vol] 21 U/L Normal 14-59 [facility] Comment on above: Performed By: #### L IPA, CMP, CMADM, BNP, GRACIELA #### [facility] [address] [place] [address] Dr. Yonny Meza Anion gap [Moles/Vol] 12.4 mmol/L Normal Th e [facility] Comment on above: Performed By: #### L IPA, CMP, CMADM, BNP, GRACIELA #### [facility] [address] [place] [address] Dr. Yonny Meza AST [Catalytic activity/Vol] 24 U/L Normal 15-37 [facility] Comment on above: Performed By: #### L IPA, CMP, CMADM, BNP, GRACIELA #### [facility] [address] [place] [address] Dr. Yonny Meza Bilirubin [Mass/Vol] 0.4 mg/dL Normal 0.2-1.0 [facility] Comment on above: Performed By: #### L IPA, CMP, CMADM, BNP, GRACIELA #### [facility] [address] [place] [address] Dr. Yonny Meza Calcium [Mass/Vol] 8.7 mg/dL Normal 8.5-10.1 [facility] Comment on above: Performed By: #### L IPA, CMP, CMADM, BNP, GRACIELA #### [facility] [address] [place] [address] Dr. Yonny Meza Chloride [Moles/Vol] 105 mmol/L Normal 98-107 [facility] Comment on above: Performed By: #### L IPA, CMP, CMADM, BNP, GRACIELA #### [facility] [address] [place] [address] Dr. Yonny Meza CO2 [Moles/Vol] 28.0 mmol/L Normal 21.0-32.0 [facility] Comment on above: Performed By: #### L IPA, CMP, CMADM, BNP, GRACIELA #### [facility] [address] [place] [address] Dr. Yonny Meza Creatinine [Mass/Vol] 1.11 mg/dL Critically high 0.55-1.02 [facility] Comment on above: Performed By: #### L IPA, CMP, CMADM, BNP, GRACIELA #### [facility] [address] [address] [address] Yonny Meza EGFR-AF KENYAN 58 mL/min/1.73m2 Critically low >=60 [facility] Comment on above: Performed By: #### L IPA, CMP, CMADM, BNP, GRACIELA #### [facility] [address] [place] [address] Dr. Yonny Meza EGFR-NON AF KENYAN 48 mL/min/1.73m2 Critically low >=60 [facility] Comment on above: Performed By: #### L IPA, CMP, CMADM, BNP, GRACIELA #### [facility] [address] [place] [address] Dr. Yonny Meza Globulin (S) [Mass/Vol] 3.7 g/dL Normal [facility] Comment on above: Performed By: #### L IPA, CMP, CMADM, BNP, GRACIELA #### [facility] [address] [place] [address] Dr. Yonny Meza Glucose [Mass/Vol] 152 mg/dL Critically high 74-106 [facility] Comment on above: Performed By: #### L IPA, CMP, CMADM, BNP, GRACIELA #### [facility] [address] [place] [address] Dr. Yonny Meza Potassium [Moles/Vol] 3.4 mmol/L Critically low 3.5-5.1 [facility] Comment on above: Performed By: #### L IPA, CMP, CMADM, BNP, GRACIELA #### [facility] [address] [place] [address] Dr. Yonny Meza Protein [Mass/Vol] 7.0 g/dL Normal 6.4-8.2 [facility] Comment on above: Performed By: #### L IPA, CMP, CMADM, BNP, GRACIELA #### [facility] [address] [place] [address] Dr. Yonny Meza Sodium [Moles/Vol] 142 mmol/L Normal 136-145 [facility] Comment on above: Performed By: #### L IPA, CMP, CMADM, BNP, GRACIELA #### [facility] [address] [place] [address] Dr. Yonny Meza Urea nitrogen [Mass/Vol] 14.0 mg/dL Normal 7.0-18.0 [facility] Comment on above: Performed By: #### L IPA, CMP, CMADM, BNP, GRACIELA #### [facility] [address] [place] [address] Dr. Yonny Meza Urea nitrogen/Creatinine [Mass ratio] 12.6 mg/mg Normal [facility] Comment on above: Performed By: #### L IPA, CMP, CMADM, BNP, GRACIELA #### [facility] [address] [place] [address] Dr. Yonny Meza PROTIMEon 09-03-2022 INR Coag (PPP) [Relative time] 1.05 {INR} Normal [facility] Comment on above: Performed By: #### L IPA, CMP, CMADM, BNP, GRACIELA #### [facility] [address] [place] [address] Dr. Yonny Meza INR GUIDELINES SEE BELOW Normal [facility] Comment on above: Result Comment: ASCENCION RED INR: 2.0 - 3.0 CONDITIONS NOT LISTED BELOW 2.5 - 3.5 FOR PROSTHETIC HEART VALVE REPLACEMENT 2.5 - 3.5 RECURRENT THROMBOSIS Performed By: #### L IPA, CMP, CMADM, BNP, GRACIELA #### [facility] [address] [place] [address] Dr. Yonny Meza PT Coag (PPP) [Time] 11.1 s Normal 9.0-11.6 [facility] Comment on above: Performed By: #### L IPA, CMP, CMADM, BNP, GRACIELA #### [facility] [address] [place] [address] Dr. Yonny Meza PTTon 09-03-2022 aPTT Coag (Bld) [Time] 26.7 s Normal 22.3-36.2 [facility] Comment on above: Performed By: #### L IPA, CMP, CMADM, BNP, GRACIELA #### [facility] [address] [place] [address] Dr. Yonny Meza XR CHEST 1 Von [...] by: HATTIE [place] Date: 2022-09-03 00:08 Normal [place] MAMM SCREEN 3D RON CADon 06-06-2022 MAMM SCREEN 3D RON CAD Patient: LUMA RIBEIRO Exam Date: 06/06/2022 : 1945 Gender:F Ordering : DR ROC STEELE M.D. Admission #: [id number] Family : Order #: [id number] CLICK HERE TO VIEW EXAM RADIOLOGY REPORT PROCEDURE: MAMMOGRAM SCREENING 3D BILATERAL CAD COMPARISON: MG MAMM DX 3D RT CAD, 05/03/2021. MAMM SCREEN 3D RON CAD, 01/12/2021. INDICATIONS: Screening mammography Calculator Name NCI Breast Cancer Risk Assessment Tool 5 Year Breast Cancer Risk 1.20% Lifetime Breast Cancer Risk 2.50% Personal Breast Cancer No Personal Ovarian Cancer No Treatments None Family Cancers Aunt-paternal with breast cancer at age 60. LOCATION: The [facility] BREAST COMPOSITION: Scattered areas fibroglandular density. FINDINGS: [...] LUMP SHOULD BE BIOPSIED. Dictated by: Lisa Frederick MD on 06/07/2022 at 08:06 Approved by: Lisa Frederick MD on 06/07/2022 at 08:09 Normal [facility] No Panel Informationon 12-16 Please click on the link to view the study images Normal [facility] Work Phone: Radiologyon 12-03-2020 XR Pelvis and Hip - left [address] [facility] Work Phone: MRI Humerus w/wo Contraston 11-20-2020 MRI Humerus w/wo Contrast Normal [facility] Work Phone: Otheron 02-13-2020 Interpreted by: BONIFACIO WARE 15:34MRN: [id number] Name: LUMA RIBEIRO STUDY:HIP, UNILATERAL W/PELVIS WHEN PERFORMED 2-3 VIEWS; Right;02/13/2020 1:58 pm INDICATION:pain. 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 No acute bony abnormality orperiprosthetic fracture appreciated. Electronically signed by: TASIA BIRD 02/13/20 15:[address] [facility] Work Phone: Complete Blood Count + Diffe rentialon 01-30-2020 Basophils (Bld) [#/Vol] 0.04 {x10E9/L} See Below [facility] Work Phone: Comment on above: Reference Range: 0.0 0 - 0.10 Basophils/100 WBC (Bld) 0.2 % 0.0 - 2.[address] [facility] Work Phone: Eosinophils (Bld) [#/Vol] 0.01 {x10E9/L} See Below [facility] Work Phone: Comment on above: Reference Range: 0.0 0 - 0.40 Eosinophils/100 WBC (Bld) 0.1 % 0.0 - 6.[address] [facility] Work Phone: Erythrocyte distribution width (RBC) [Ratio] 13.1 % See Below [facility] [place] Work Phone: Comment on above: Reference Range: 11. 5 - 14.5 Hematocrit (Bld) [Volume fraction] 34.8 % below low threshold See Below [facility] [place] Work Phone: Comment on above: Reference Range: 36. 0 - 46.0 Hemoglobin (Bld) [Mass/Vol] 11.3 g/dL below low threshold See Below [facility] Work Phone: Comment on above: Reference Range: 12. 0 - 16.0 Lymphocytes (Bld) [#/Vol] 2.21 {x10E9/L} See Below [facility] Work Phone: Comment on above: Reference Range: 0.8 0 - 3.00 Lymphocytes/100 WBC (Bld) 12.5 % See Below [facility] Work Phone: Comment on above: Reference Range: 13. 0 - 44.0 MCHC (RBC) [Mass/Vol] 32.5 g/dL See Below [facility] Work Phone: Comment on above: Reference Range: 32. 0 - 36.0 MCV (RBC) [Entitic vol] 99 fL 80 - 100 [facility] [place] Work Phone: [phone] Monocytes (Bld) [#/Vol] 1.82 {x10E9/L} above high threshold See Below [facility] [place] Work Phone: Comment on above: Reference Range: 0.0 5 - 0.80 Monocytes/100 WBC (Bld) 10.3 % 2.0 - 10.0 [facility] [place] Work Phone: [phone] Neutrophils/100 WBC (Bld) 76.3 % See Below [facility] Work Phone: Comment on above: Reference Range: 40. 0 - 80.0 Platelets (Bld) [#/Vol] 234 {x10E9/L} 150 - [address] [facility] Work Phone: [phone] RBC (Bld) [#/Vol] 3.52 {x10E12/L} below low threshold See Below [facility] Work Phone: [phone] Comment on above: Reference Range: 4.0 0 - 5.20 WBC (Bld) [#/Vol] 17.7 {x10E9/L} above high threshold 4.4 - 11.[address] [facility] Work Phone: [phone] Complete Blood Count + Differential 0.6 % 0.0 - 0.[address] [facility] Work Phone: [phone] Comment on above: Immature Granulocyte Count (IG) includes promyelocytes, myelocytes and metamyelocytes but does not include bands. Percent differential counts (%) should be interpreted in the context of the absolute cell counts (cells/L). Complete Blood Count + Differential 13.52 {x10E9/L} above high threshold See Below [facility] Work Phone: [phone] Comment on above: Reference Range: 1.6 0 - 5.50 Metabolic Panelon 01-30-2020 Anion gap [Moles/Vol] 8 mmol/L below low threshold 10 - 20 [facility] [employer] Work Phone: [phone] Calcium [Mass/Vol] 8.8 mg/dL 8.6 - 10.[address] [facility] [place] Work Phone: [phone] Chloride [Moles/Vol] 101 mmol/L 98 - 107 [facility] [place] Work Phone: [phone] CO2 [Moles/Vol] 32 mmol/L 21 - 32 -[facility] Work Phone: Creatinine [Mass/Vol] 1.00 mg/dL See Below - [place] [facility] [employer] Work Phone: Comment on above: Reference Range: 0.5 0 - 1.05 Glucose [Mass/Vol] 128 mg/dL above high threshold 74 - [address] [facility] [employer] Work Phone: Potassium [Moles/Vol] 4.2 mmol/L 3.5 - 5.3 [facility] [employer] Work Phone: Sodium [Moles/Vol] 137 mmol/L 136 - [address] [facility] [employer] Work Phone: Urea nitrogen [Mass/Vol] 14 mg/dL 6 - 23 -[facility] [employer] Work Phone: Otheron 01-30-2020 65 {mL/min/1.73m2} >[address] [facility] [employer] Work Phone: Comment on above: CALCULATIONS OF TONE MATED GFR ARE PERFORMED USING THE MDRD STUDY EQUATION FOR THE IDMS-TRACEABLE CREATININE METHODS. CLIN CHEM 2007;53:766-72 54 {mL/min/1.73m2} Abnormal >[address] [facility] [employer] Work Phone: Otheron 01-29-2020 Interpreted by: RILMCJ17/01/20 15:21MRN: [id number] Name: LUMA RIBEIRO STUDY:HIP, UNILATERAL W/PELVIS WHEN PERFORMED 2-3 VIEWS; 01/29/2020 12:25 pm INDICATION:s/p right ROSSANA. COMPARISON:01/16/2020 ORDERING CLINICIAN:TASIA BIRD FINDINGS:Pelvis and right hip, three views Interval right total hip arthroplasty noted without periprostheticfracture or lucency. There is no dislocation. IMPRESSION:Right total hip arthroplasty without immediate complicationsElectronically signed by: RAJIV 01/30/20 15:21 Normal -[place] [facility] [employer] Work Phone: XR Pelvis 1 or 2 views Please click on the link to view the study images Normal [facility] Work Phone: Coronavirus 2019 RNA by PCR, Screening Asymptomticon 01-27-2020 Coronavirus 2019 RNA by PCR, Screening Asymptomtic NOT DETECTED See Below [facility] Work Phone: Comment on above: SOURCE: [...] make patient management decisions.Fact sheet for providers: https://www.fda.gov/media/355275/downloadFact sheet for patients: https://www.fda.gov/media/997271/downloadThis test has received FDA Emergency Use Authorization (EUA) and has been verified by [facility] ([facility]). This test is only authorized for the duration of time that circumstances exist to justify the authorization of the emergency use of in vitro diagnostic tests for the detection of SARS-CoV-2 virus and/or diagnosis of COVID-19 infection under section 564(b)(1) of the Act, 21 U.S.C. 360bbb-3(b)(1), unless the authorization is terminated or revoked sooner. [facility] is certified under CLIA-88 as qualified to perform high complexity testing. Testing is performed in the [facility] laboratories located at [address] [place] [address]. Activated Partial Thrombopla stin Timeon 01-20-2020 aPTT Coag (PPP) [Time] 29 {sec} 25 - [address] [facility] Work Phone: Comment on above: THE APTT IS NO LONGE R USED FOR MONITORING UNFRACTIONATED HEPARIN THERAPY. FOR MONITORING HEPARIN THERAPY, USE THE HEPARIN ASSAY. Complete Blood Count + Diffroni cast 01-20-2020 Basophils (Bld) [#/Vol] 0.04 {x10E9/L} See Below [facility] Work Phone: Comment on above: Reference Range: 0.0 0 - 0.10 Basophils/100 WBC (Bld) 0.5 % 0.0 - 2.[address] [facility] Work Phone: Eosinophils (Bld) [#/Vol] 0.09 {x10E9/L} See Below [facility] Work Phone: Comment on above: Reference Range: 0.0 0 - 0.40 Eosinophils/100 WBC (Bld) 1.0 % 0.0 - 6.[address] [facility] Work Phone: Erythrocyte distribution width (RBC) [Ratio] 12.9 % See Below [facility] Work Phone: Comment on above: Reference Range: 11. 5 - 14.5 Hematocrit (Bld) [Volume fraction] 44.6 % See Below [facility] Work Phone: Comment on above: Reference Range: 36. 0 - 46.0 Hemoglobin (Bld) [Mass/Vol] 14.5 g/dL See Below [facility] Work Phone: Comment on above: Reference Range: 12. 0 - 16.0 Lymphocytes (Bld) [#/Vol] 3.41 {x10E9/L} above high threshold See Below [facility] Work Phone: Comment on above: Reference Range: 0.8 0 - 3.00 Lymphocytes/100 WBC (Bld) 38.4 % See Below [facility] Work Phone: [phone] Comment on above: Reference Range: 13. 0 - 44.0 MCHC (RBC) [Mass/Vol] 32.5 g/dL See Below [facility] [place] Work Phone: [phone] Comment on above: Reference Range: 32. 0 - 36.0 MCV (RBC) [Entitic vol] 100 fL 80 - 100 [facility] Work Phone: [phone] Monocytes (Bld) [#/Vol] 0.81 {x10E9/L} above high threshold See Below [facility] [place] Work Phone: [phone] Comment on above: Reference Range: 0.0 5 - 0.80 Monocytes/100 WBC (Bld) 9.1 % 2.0 - 10.0 [facility] Work Phone: [phone] Neutrophils (Bld) [#/Vol] 4.49 {x10E9/L} See Below [facility] [place] Work Phone: [phone] Comment on above: Reference Range: 1.6 0 - 5.50 Neutrophils/100 WBC (Bld) 50.7 % See Below [facility] Work Phone: [phone] Comment on above: Reference Range: 40. 0 - 80.0 Platelets (Bld) [#/Vol] 261 {x10E9/L} 150 - 450 [facility] [place] Work Phone: [phone] RBC (Bld) [#/Vol] 4.48 {x10E12/L} See Below [facility] [place] Work Phone: [phone] Comment on above: Reference Range: 4.0 0 - 5.20 WBC (Bld) [#/Vol] 8.9 {x10E9/L} 4.4 - 11.3 [facility] [place] Work Phone: [phone] Complete Blood Count + Differential 0.3 % 0.0 - 0.9 [facility] [place] Work Phone: [phone] Comment on above: Immature Granulocyte Count (IG) includes promyelocytes, myelocytes and metamyelocytes but does not include bands. Percent differential counts (%) should be interpreted in the context of the absolute cell counts (cells/L). Fructosamine, Serumon 2019 Fructosamine [Moles/Vol] 265 umol/L 0-285 -[place] [facility] Work Phone: Comment on above: Published reference interval for apparently healthy subjectsbetween age 20 and 60 is 205 - 285 umol/L and in a poorlycontrolled diabetic population is 228 - 563 umol/L with amean of 396 umol/L. Hematologyon 01-20-2020 INR Coag (PPP) [Relative time] 1.1 {INR} 0.9 - 1.1 -[facility] Work Phone: [phone] PT Coag (PPP) [Time] 13.0 {sec} See Below [facility] Work Phone: [phone] Comment on above: Reference Range: 10. 1 - 13.3 Metabolic Panelon 01-20-2020 ALP [Catalytic activity/Vol] 100 U/L 33 - 136 -[facility] Work Phone: [phone] Anion gap [Moles/Vol] 13 mmol/L 10 - 20 - [facility] Work Phone: [phone] Bilirubin [Mass/Vol] 0.6 mg/dL 0.0 - 1.2 [facility] [employer] Work Phone: [phone] Calcium [Mass/Vol] 9.7 mg/dL 8.6 - 10.[address] [address] [facility] [employer] Work Phone: [phone] Chloride [Moles/Vol] 101 mmol/L 98 - 107 [facility] [employer] Work Phone: [phone] CO2 [Moles/Vol] 32 mmol/L 21 - 32 [facility] Work Phone: Creatinine [Mass/Vol] 1.01 mg/dL See Below - [facility] [place] Work Phone: Comment on above: Reference Range: 0.5 0 - 1.05 Glucose [Mass/Vol] 88 mg/dL 74 - 99 [facility] [place] Work Phone: Potassium [Moles/Vol] 3.9 mmol/L 3.5 - 5.3 - [facility] [place] Work Phone: Protein [Mass/Vol] 7.6 g/dL 6.4 - 8.[address] [facility] [place] Work Phone: Sodium [Moles/Vol] 142 mmol/L 136 - 145 -[facility] [place] Work Phone: Urea nitrogen [Mass/Vol] 15 mg/dL 6 - 23 -[facility] [place] Work Phone: Otheron 01-20-2020 100 1 -[facility] [place] Work Phone: [phone] -[facility] [place] Work Phone: [phone] [facility] [place] Work Phone: [phone] [facility] [place] Work Phone: -[phone] [facility] [place] Work Phone: [phone] -[facility] [place] Work Phone: Sinus rhythm with occasional premature ventricular complexes -[facility] [place] Work Phone: [phone] -[facility] [place] Work Phone: [email or web address]?Ret rieveTestByDateTime?Patient LN=[id number]&Date=21-09-202 0&Time=14%3a54%3a12%3a00&Te stType=ECG&Site=11&OutputTy pe=PDF&Ext=PDF -[facility] Work Phone: [phone] [facility] [employer] Work Phone: [phone] [facility] [address] [facility] [employer] Work Phone: [phone] [facility] [employer] Work Phone: [phone] [facility] [employer] Work Phone: [phone] [facility] [employer] Work Phone: [facility] Work Phone: [phone] Albumin BCP dye [Mass/Vol] 4.4 g/dL 3.4 - 5.[address] [facility] Work Phone: [phone] With P-5'-P [Catalytic activity/Vol] 16 U/L 7 - [address] [facility] Work Phone: [phone] Comment on above: Patients treated wit h Sulfasalazine may generate falsely decreased results for ALT. AST With P-5'-P [Catalytic activity/Vol] 23 U/L 9 - 39 -[facility] Work Phone: [phone] {mL/min/1.73m2} >[address] [facility] [address] [facility] Work Phone: [phone] Comment on above: CALCULATIONS OF TONE MATED GFR ARE PERFORMED USING THE MDRD STUDY EQUATION FOR THE IDMS-TRACEABLE CREATININE METHODS. CLIN CHEM 2007;53:766-72 54 {mL/min/1.73m2} Abnormal >[address] [facility] Work Phone: [phone] Urinalysison 01-20-2020 Appearance (U) HAZY CLEAR -[facility] Work Phone: [phone] Color (U) YELLOW See Below -[facility] [employer] Work Phone: Comment on above: Reference Range: STR AW,YELLOW Glucose Ql (U) Negative NEGATIVE -[place] [facility] [employer] Work Phone: Ketones Ql (U) Negative NEGATIVE [facility] [employer] Work Phone: Leukocyte esterase Test strip Ql (U) Negative NEGATIVE [facility] Work Phone: pH (U) 7.0 [pH] 5.0 - 8.0 -[place] [facility] [employer] Work Phone: Protein (U) [Mass/Vol] Negative NEGATIVE [facility] [employer] Work Phone: RBC (U) [#/Vol] Negative NEGATIVE [facility] [employer] Phone: Specific gravity (U) [Rel density] 1.[address] [facility] [employer] Work Phone: Comment on above: Reference Range: 1.0 05 - 1.035 Urinalysis Negative NEGATIVE [facility] Work Phone: Urinalysis 2.0 mg/dL above high threshold 0.0 - 1.9 -[place] [facility] [employer] Work Phone: Comment on above: Due to [...] Otheron 01-16-2020 Interpreted by: AGNES ALVARADO01/16/20 13:42MRN: [id number] Name: GEMALUMA STUDY:HIP, UNILATERAL W/PELVIS WHEN PERFORMED 2-3 VIEWS; Right; 01/16/20201:39 pm INDICATION:pain. ORDERING CLINICIAN:HARSHAL ALVARADO FINDINGS:AP lateral right hip x-ray shows end-stage [id number] arthrosis noted. 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 Electronically signed by: HRASHAL ALVARADO 01/16/20 13:42 Normal [facility] [facility] Work Phone: Vital Signs Date Time Vital Sign Value Performing Clinician Facility 09-18-2024 11:00-0400 Body height 162.[address] 09-18-2024 11:00-0400 Body mass index (BMI) [Ratio] 46.17 kg/m2 [address] 09-18-2024 11:00-0400 Body weight 122.[address] 09-18-2024 11:00-0400 Diastolic blood pressure 86 mm[Hg] [address] 09-18-2024 11:00-0400 Systolic blood pressure 124 mm[Hg] [address] 09-18-2024 10:44-0400 Diastolic blood pressure 78 mm[Hg] [address] 09-18-2024 10:44-0400 Heart rate 67 /min [address] 09-18-2024 10:44-0400 Systolic blood pressure 122 mm[Hg] [address] 08-19-2024 11:24-0400 Body height 157.5 cm Roc Steele MD Work Phone: [facility] 08-19-2024 11:24-0400 Body mass index (BMI) [Ratio] 49.02 kg/m2 Roc Steele MD Work Phone: [facility] 08-19-2024 11:24-0400 Body weight 121.56 kg Roc Steele MD Work Phone: [facility] 08-19-2024 11:24-0400 Diastolic blood pressure 86 mm[Hg] Roc Steele MD Work Phone: [facility] 08-19-2024 11:24-0400 Heart rate 89 /min Roc Steele MD Work Phone: [facility] 08-19-2024 11:24-0400 SaO2% (BldA) [Mass fraction] 96 % Roc Steele MD Work Phone: [facility] 08-19-2024 11:24-0400 Systolic blood pressure 138 mm[Hg] Roc Steele MD Work Phone: [facility] 08-01-2024 14:45-0400 Body height 157.5 cm Alex Brown DPM Work Phone: [facility] 08-01-2024 14:45-0400 Body mass index (BMI) [Ratio] 48.65 kg/m2 Alex Alfredo DPM Work Phone: [facility] 08-01-2024 14:45-0400 Body weight 120.66 kg Alex Alfredo DPM Work Phone: [facility] 08-01-2024 14:45-0400 Respiratory rate 16 /min Alex Alfredo DPM Work Phone: [facility] 08-01-2024 13:31-0400 Body height 157.5 cm Kamila Pride TRANSITION MANAGER Work Phone: [facility] 08-01-2024 13:31-0400 Body mass index (BMI) [Ratio] 48.73 kg/m2 Kamila Espitiavely TRANSITION MANAGER Work Phone: [facility] 08-01-2024 13:31-0400 Body weight 120.84 kg Kamila Bigg TRANSITION MANAGER Work Phone: [facility] 08-01-2024 13:31-0400 Diastolic blood pressure 82 mm[Hg] Kamila Espitiavely TRANSITION MANAGER Work Phone: [facility] 08-01-2024 13:31-0400 Heart rate 88 /min Kamila Bigg TRANSITION MANAGER Work Phone: [facility] 08-01-2024 13:31-0400 Respiratory rate 17 /min Kamila Bigg TRANSITION MANAGER Work Phone: [facility] 08-01-2024 13:31-0400 SaO2% (BldA) [Mass fraction] 99 % Kamila Pride TRANSITION MANAGER Work Phone: [facility] 08-01-2024 13:31-0400 Systolic blood pressure 134 mm[Hg] Kamila Pride TRANSITION MANAGER Work Phone: [facility] 07-15-2024 11:25-0400 Body height 162.6 cm Amber Hawley MD Work Phone: [facility] 07-15-2024 11:25-0400 Body mass index (BMI) [Ratio] 46.17 kg/m2 Amber Hawley MD Work Phone: [facility] 07-15-2024 11:25-0400 Body weight 122.02 kg Amber Hawley MD Work Phone: [facility] 07-15-2024 11:25-0400 Diastolic blood pressure 88 mm[Hg] Amber Hawley MD Work Phone: [facility] 07-15-2024 11:25-0400 Heart rate 93 /min Amber Hawley MD Work Phone: [facility] 07-15-2024 11:25-0400 Systolic blood pressure 128 mm[Hg] Amber Hawley MD Work Phone: [facility] 07-11-2024 12:59-0400 Body height 157.5 cm Kamila Pride TRANSITION MANAGER Work Phone: [facility] 07-11-2024 12:59-0400 Body mass index (BMI) [Ratio] 49.93 kg/m2 Kamila Pride TRANSITION MANAGER Work Phone: [facility] 07-11-2024 12:59-0400 Body weight 123.83 kg Kamila Pride TRANSITION MANAGER Work Phone: [facility] 07-11-2024 12:59-0400 Diastolic blood pressure 80 mm[Hg] Kamila Pride TRANSITION MANAGER Work Phone: [facility] 07-11-2024 12:59-0400 Heart rate 87 /min Kamila [place] TRANSITION MANAGER Work Phone: [facility] 07-11-2024 12:59-0400 SaO2% (BldA) [Mass fraction] 97 % Kamila [place] TRANSITION MANAGER Work Phone: [facility] 07-11-2024 12:59-0400 Systolic blood pressure 130 mm[Hg] Kamila Bigg TRANSITION MANAGER Work Phone: [facility] 07-03-2024 11:31-0500 Body height 157.5 cm Kamila [place] TRANSITION MANAGER Work Phone: [facility] 07-03-2024 11:31-0500 Body mass index (BMI) [Ratio] 50.22 kg/m2 Kamila Bigg TRANSITION MANAGER Work Phone: [facility] 07-03-2024 11:31-0500 Body weight 124.56 kg Kamila [place] TRANSITION MANAGER Work Phone: [facility] 07-03-2024 11:31-0500 Diastolic blood pressure 82 mm[Hg] Kamila Bigg TRANSITION MANAGER Work Phone: [facility] 07-03-2024 11:31-0500 Heart rate 74 /min Kamila [place] TRANSITION MANAGER Work Phone: [facility] 07-03-2024 11:31-0500 Respiratory rate 17 /min Kamila Bigg TRANSITION MANAGER Work Phone: [facility] 07-03-2024 11:31-0500 SaO2% (BldA) [Mass fraction] 94 % Kamila Bigg TRANSITION MANAGER Work Phone: [facility] 07-03-2024 11:31-0500 Systolic blood pressure 136 mm[Hg] Kamila [place] TRANSITION MANAGER Work Phone: [facility] 06-11-2024 11:07-0500 Body height 157.5 cm Kamila Bigg TRANSITION MANAGER Work Phone: [facility] 06-11-2024 11:07-0500 Body mass index (BMI) [Ratio] 49.2 kg/m2 Kamila Pride TRANSITION MANAGER Work Phone: [facility] 06-11-2024 11:07-0500 Body weight 122.02 kg Kamila Pride TRANSITION MANAGER Work Phone: [facility] 06-11-2024 11:07-0500 Diastolic blood pressure 78 mm[Hg] Kamila Pride TRANSITION MANAGER Work Phone: [facility] 06-11-2024 11:07-0500 Heart rate 76 /min Kamila Pride TRANSITION MANAGER Work Phone: [facility] 06-11-2024 11:07-0500 Respiratory rate 17 /min Kamila Pride TRANSITION MANAGER Work Phone: [facility] 06-11-2024 11:07-0500 SaO2% (BldA) [Mass fraction] 99 % Kamila Pride TRANSITION MANAGER Work Phone: [facility] 06-11-2024 11:07-0500 Systolic blood pressure 134 mm[Hg] Kamila Pride TRANSITION MANAGER Work Phone: [facility] 05-23-2024 14:37-0500 Body height 157.5 cm Alex Alfredo DPM Work Phone: [facility] 05-23-2024 14:37-0500 Body mass index (BMI) [Ratio] 50.3 kg/m2 Alex Alfredo DPM Work Phone: [facility] 05-23-2024 14:37-0500 Body weight 124.74 kg Alex Alfredo DPM Work Phone: [facility] 05-23-2024 14:37-0500 Respiratory rate 18 /min Alex Alfredo DPM Work Phone: [facility] 05-22-2024 10:11-0500 Body height 157.5 cm Kamila Pride TRANSITION MANAGER Work Phone: [facility] 05-22-2024 10:11-0500 Body mass index (BMI) [Ratio] 50.33 kg/m2 Kamila Pride TRANSITION MANAGER Work Phone: [facility] 05-22-2024 10:11-0500 Body weight 124.83 kg Kamila Bigg TRANSITION MANAGER Work Phone: [facility] 05-22-2024 10:11-0500 Diastolic blood pressure 80 mm[Hg] Kamila [place] TRANSITION MANAGER Work Phone: [facility] 05-22-2024 10:11-0500 Heart rate 77 /min Kamila Bigg TRANSITION MANAGER Work Phone: [facility] 05-22-2024 10:11-0500 Respiratory rate 18 /min Kamila [place] TRANSITION MANAGER Work Phone: [facility] 05-22-2024 10:11-0500 SaO2% (BldA) [Mass fraction] 99 % Kamila [place] TRANSITION MANAGER Work Phone: [facility] 05-22-2024 10:11-0500 Systolic blood pressure 128 mm[Hg] Kamila [place] TRANSITION MANAGER Work Phone: [facility] 05-15-2024 11:32-0500 Body height 157.5 cm Kamila [place] TRANSITION MANAGER Work Phone: [facility] 05-15-2024 11:32-0500 Body mass index (BMI) [Ratio] 48.54 kg/m2 Kamila [place] TRANSITION MANAGER Work Phone: [facility] 05-15-2024 11:32-0500 Body weight 120.39 kg Kamila [place] TRANSITION MANAGER Work Phone: [facility] 05-15-2024 11:32-0500 Diastolic blood pressure 76 mm[Hg] Kamila Bigg TRANSITION MANAGER Work Phone: [facility] 05-15-2024 11:32-0500 Heart rate 97 /min Kamila Bigg TRANSITION MANAGER Work Phone: [facility] 05-15-2024 11:32-0500 Respiratory rate 18 /min Kamila [place] TRANSITION MANAGER Work Phone: [facility] 05-15-2024 11:32-0500 SaO2% (BldA) [Mass fraction] 98 % Kamila Bigg TRANSITION MANAGER Work Phone: [facility] 05-15-2024 11:32-0500 Systolic blood pressure 126 mm[Hg] Kamila [place] TRANSITION MANAGER Work Phone: [facility] 05-07-2024 10:53-0500 Body height 157.5 cm Kamila [place] TRANSITION MANAGER Work Phone: [facility] 05-07-2024 10:53-0500 Body mass index (BMI) [Ratio] 48.87 kg/m2 Kamila Bigg TRANSITION MANAGER Work Phone: [facility] 05-07-2024 10:53-0500 Body weight 121.2 kg Kamila [place] TRANSITION MANAGER Work Phone: [facility] 05-07-2024 10:53-0500 Diastolic blood pressure 82 mm[Hg] Kamila [place] TRANSITION MANAGER Work Phone: [facility] 05-07-2024 10:53-0500 Heart rate 88 /min Kamila [place] TRANSITION MANAGER Work Phone: [facility] 05-07-2024 10:53-0500 Respiratory rate 18 /min Kamila Bigg TRANSITION MANAGER Work Phone: [facility] 05-07-2024 10:53-0500 SaO2% (BldA) [Mass fraction] 95 % Kamila [place] TRANSITION MANAGER Work Phone: [facility] 05-07-2024 10:53-0500 Systolic blood pressure 130 mm[Hg] Kamila [place] TRANSITION MANAGER Work Phone: [facility] 04-03-2024 08:32-0500 Body height 157.5 cm Kamila Bigg TRANSITION MANAGER Work Phone: [facility] 04-03-2024 08:32-0500 Body mass index (BMI) [Ratio] 49.6 kg/m2 Kamila Bigg TRANSITION MANAGER Work Phone: [facility] 04-03-2024 08:32-0500 Body weight 123.02 kg Kamila Bigg TRANSITION MANAGER Work Phone: [facility] 04-03-2024 08:32-0500 Diastolic blood pressure 80 mm[Hg] Kamila [place] TRANSITION MANAGER Work Phone: [facility] 04-03-2024 08:32-0500 Heart rate 74 /min Kamila Bigg TRANSITION MANAGER Work Phone: [facility] 04-03-2024 08:32-0500 Respiratory rate 17 /min Kamila Bigg TRANSITION MANAGER Work Phone: [facility] 04-03-2024 08:32-0500 SaO2% (BldA) [Mass fraction] 98 % Kamila Bigg TRANSITION MANAGER Work Phone: [facility] 04-03-2024 08:32-0500 Systolic blood pressure 126 mm[Hg] Kamila Bigg TRANSITION MANAGER Work Phone: [facility] 03-05-2024 11:19-0500 Body height 157.5 cm Kamila Pride TRANSITION MANAGER Work Phone: [facility] 03-05-2024 11:19-0500 Body mass index (BMI) [Ratio] 50.85 kg/m2 Kamila Bigg TRANSITION MANAGER Work Phone: [facility] 03-05-2024 11:19-0500 Body weight 126.1 kg Kamila [place] TRANSITION MANAGER Work Phone: [facility] 03-05-2024 11:19-0500 Diastolic blood pressure 76 mm[Hg] Kamila Bigg TRANSITION MANAGER Work Phone: [facility] 03-05-2024 11:19-0500 Heart rate 102 /min Kamila [place] TRANSITION MANAGER Work Phone: [facility] 03-05-2024 11:19-0500 SaO2% (BldA) [Mass fraction] 98 % Kamila [place] TRANSITION MANAGER Work Phone: [facility] 03-05-2024 11:19-0500 Systolic blood pressure 134 mm[Hg] Kamila [place] TRANSITION MANAGER Work Phone: [facility] 02-22-2024 14:09-0400 Body height 157.5 cm Alex Alfredo DPM Work Phone: [facility] 02-22-2024 14:09-0400 Body mass index (BMI) [Ratio] 50.85 kg/m2 Alex Alfredo DPM Work Phone: [facility] 02-22-2024 14:09-0400 Body weight 126.1 kg Alex Alfredo DPM Work Phone: [facility] 02-22-2024 14:09-0400 Diastolic blood pressure 80 mm[Hg] Alex Alfredo DPM Work Phone: [facility] 02-22-2024 14:09-0400 Heart rate 82 /min Alex Brown DPM Work Phone: [facility] 02-22-2024 14:09-0400 Systolic blood pressure 126 mm[Hg] Alex Brown DPM Work Phone: [facility] 06-15-2023 14:42-0500 Body height 157.5 cm Alex Alfredo DPM Work Phone: [facility] 06-15-2023 14:42-0500 Body mass index (BMI) [Ratio] 50.48 kg/m2 Alex Alfredo DPM Work Phone: [facility] 06-15-2023 14:42-0500 Body weight 125.19 kg Alex Alfredo DPM Work Phone: [facility] 06-15-2023 14:42-0500 Diastolic blood pressure 82 mm[Hg] Alex Brown DPM Work Phone: [facility] 06-15-2023 14:42-0500 Heart rate 84 /min Alex Brown DPM Work Phone: [facility] 06-15-2023 14:42-0500 Systolic blood pressure 133 mm[Hg] Alex Brown DPM Work Phone: [facility] 06-01-2023 15:33-0500 Body height 157.5 cm Alex Brown DPM Work Phone: [facility] 06-01-2023 15:33-0500 Body mass index (BMI) [Ratio] 50.48 kg/m2 Alex Alfredo DPM Work Phone: [facility] 06-01-2023 15:33-0500 Body weight 125.19 kg Alex Alfredo DPM Work Phone: [facility] 06-01-2023 15:33-0500 Diastolic blood pressure 80 mm[Hg] Alex Alfredo DPM Work Phone: [facility] 06-01-2023 15:33-0500 Heart rate 79 /min Alex Alfredo DPM Work Phone: [facility] 06-01-2023 15:33-0500 Systolic blood pressure 130 mm[Hg] Alex Alfredo DPM Work Phone: [facility] 01-16-2020 15:36-0400 BMI (Body Mass Index) 46.35 kg/m2 [facility] Work Phone: 01-16-2020 15:36-0400 Body weight 122.47 kg [facility] Work Phone: 01-16-2020 15:36-0400 BSA (Body Surface Area) 2.22 m2 [facility] Work Phone: 01-16-2020 15:36-0400 Height 162.56 cm [facility] Work Phone: Encounters Encounter Date Encounter Type Care Provider Facility Start: 10-10-2024 End: 10-10-2024 ambulatory ALEX ALFREDO Not Available Start: 09-19-2024 End: 09-19-2024 ambulatory [facility] Start: 09-18-2024 End: 09-18-2024 Subsequent hospital visit by physician Jessica Dobbins Admin Room 1 [facility] Comment on above: Lightheadedness; Chest discomfort; Palpitations; Mixed hyperlipidemia Paroxysmal supravent ricular tachycardia; Abnormal EKG; Palpitations Start: 09-18-2024 End: 09-18-2024 ambulatory [facility] Start: 09-16-2024 End: 09-16-2024 ambulatory Ml Sanchez MD Facility:[facility] Start: 09-10-2024 End: 09-11-2024 Refill Kamila Pride TRANSITION MANAGER Work Phone: [facility] Comment on above: Primary insomnia Start: 08-19-2024 End: 08-19-2024 Office outpatient visit 25 minutes Roc Steele MD Work Phone: [facility] Comment on above: Age-related osteopor osis without current pathological fracture (CMS/HCC) (Primary Dx); Osteopenia of both hips; Chronic cough Start: 08-19-2024 End: 08-19-2024 ambulatory ROC STEELE Not Available Start: 08-01-2024 End: 08-01-2024 ambulatory ALEX ALFREDO Not Available Start: 08-01-2024 End: 08-01-2024 Patient encounter procedure Alex Alfredo DPM Work Phone: [facility] Comment on above: Pain due to onychomy cosis of toenails of both feet (Primary Dx) Start: 08-01-2024 End: 08-01-2024 Bamboo flowsheet Kamila Pride TRANSITION MANAGER Work Phone: [facility] Start: 08-01-2024 End: 08-01-2024 Bamboo flowsheet Kamila Pride TRANSITION MANAGER Work Phone: [facility] Start: 08-01-2024 End: 08-01-2024 Office outpatient visit 25 minutes Kamila Pride TRANSITION MANAGER Work Phone: [facility] Comment on above: SOB (shortness of br eath) (Primary Dx); Chronic cough; Lumbosacral spondylosis without myelopathy; Seasonal allergic rhinitis, unspecified trigger; Age-related osteoporosis without current pathological fracture (CMS/HCC) Start: 08-01-2024 End: 08-01-2024 ambulatory KAMILA PRIDE Not Available Start: 07-26-2024 End: 07-26-2024 ambulatory KAMILA PRIDE Not Available Start: 07-18-2024 End: 07-18-2024 Clinisync Result Encounter Roc Steele MD Work Phone: [facility] External Department Unsolicited Start: 07-18-2024 End: 07-18-2024 Clinisync Result Encounter Roc Steele MD Work Phone: [facility] External Department Unsolicited Start: 07-15-2024 End: 07-15-2024 Office consultation new/estab patient 60 min Amber Hawley MD Work Phone: [facility] Comment on above: [facility] [place] [facility]; Paroxysmal supraventricular tachycardia (CMS-HCC); Abnormal EKG; Lightheadedness; Chest discomfort; Palpitations; Primary hypertension; Stenosis of carotid artery, unspecified laterality; Mixed hyperlipidemia; Stage 3a chronic kidney disease (Multi); Gastroesophageal reflux disease without esophagitis; At high risk for falls; Uses roller walker; Severe obesity (BMI >= 40) (Multi); Never smoked cigarettes Start: 07-15-2024 End: 07-15-2024 ambulatory [facility] Ambulatory Start: 07-11-2024 End: 07-11-2024 Assay of hemosiderin, quant Kamila Pride NP Work Phone: [facility] Start: 07-11-2024 End: 07-11-2024 Patient encounter procedure Kamila Pride NP Work Phone: [facility] Comment on above: Insomnia, unspecifie d type (Primary Dx); Obstructive sleep apnea; Chronic cough; Benign essential hypertension (CMS/HCC); Cardiomegaly; Exudative age-related macular degeneration of left eye with active choroidal neovascularization (CMS/HCC); 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, unspecified laterality; Paroxysmal supraventricular tachycardia (CMS/HCC); Gastroesophageal reflux disease with esophagitis without hemorrhage; Lumbosacral spondylosis without myelopathy; Osteoarthritis of multiple joints, unspecified osteoarthritis type; Other secondary osteoarthritis of multiple sites; Osteopenia of both hips; Primary osteoarthritis of right hip; IGT (impaired glucose tolerance); Morbid obesity due to excess calories (CMS/HCC); Vitamin D deficiency; Anxiety; Decreased estrogen level; Difficulty walking; Localized edema; Hyperlipidemia, unspecified hyperlipidemia type ([facility]/HCC); 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; Acute low back pain without sciatica, unspecified back pain laterality; Recurrent falls; Medicare annual wellness visit, subsequent; Routine general medical examination at health care facility; Chronic congestive heart failure, unspecified heart failure type ([facility]/HCC) Start: 07-11-2024 End: 07-11-2024 ambulatory KAMILA PRIDE Not Available Start: 07-05-2024 End: 07-05-2024 ambulatory KAMILA PRIDE Not Available Start: 07-03-2024 End: 07-03-2024 Bamboo flowshien Pride TRANSITION MANAGER Work Phone: [facility] Start: 07-03-2024 End: 07-03-2024 Bamboo flowshien Pride TRANSITION MANAGER Work Phone: [facility] Start: 07-03-2024 End: 07-03-2024 Office outpatient visit 25 minutes Kamila Pride TRANSITION MANAGER Work Phone: [facility] Comment on above: Paroxysmal supravent ricular tachycardia (CMS/HCC) (Primary Dx); Primary insomnia; Acute congestive heart failure, unspecified heart failure type (CMS/HCC); Stage 3b chronic kidney disease (HCC) ([facility]); Weakness; Other fatigue; Pain of right hip; Fall, initial encounter Start: 07-03-2024 End: 07-03-2024 ambulatory KAMILA PRIDE Not Available Start: 06-11-2024 End: 06-11-2024 Bamboo flowshien Pride TRANSITION MANAGER Work Phone: [facility] Start: 06-11-2024 End: 06-11-2024 Bamboo flowshien Pride TRANSITION MANAGER Work Phone: [facility] Start: 06-11-2024 End: 06-11-2024 Office outpatient visit 25 minutes Kamila Pride TRANSITION MANAGER Work Phone: [facility] Comment on above: Palpitations (Primar y Dx); Acute cough; Acute congestive heart failure, unspecified heart failure type (CMS/HCC); Acute non-recurrent pansinusitis Start: 06-11-2024 End: 06-11-2024 ambulatory KAMILA PRIDE Not Available Start: 05-23-2024 End: 05-23-2024 Patient encounter procedure Alex Alfredo DPM Work Phone: [facility] Comment on above: Pain due to onychomy cosis of toenails of both feet (Primary Dx) Start: 05-23-2024 End: 05-23-2024 ambulatory ALEX ALFREDO Not Available Start: 05-22-2024 End: 05-22-2024 Bamboo flowsheet Kamila Pride TRANSITION MANAGER Work Phone: [facility] Start: 05-22-2024 End: 05-22-2024 Bamboo flowsheet Kamila Pride TRANSITION MANAGER Work Phone: [facility] Start: 05-22-2024 End: 05-22-2024 Office outpatient visit 25 minutes Kamila Pride TRANSITION MANAGER Work Phone: [facility] Comment on above: Stage 3b chronic kid javon disease (HCC) (CMS/HCC) (Primary Dx); Benign essential hypertension (CMS/HCC); Hypomagnesemia; Pneumonia of both lungs due to infectious organism, unspecified part of lung Start: 05-22-2024 End: 05-22-2024 ambulatory KAMILA PRIDE Not Available Start: 05-16-2024 End: 05-16-2024 Clinisync Result Encounter Kamila Pride TRANSITION MANAGER Work Phone: [facility] Department Unsolicited Start: 05-16-2024 End: 05-16-2024 Clinisync Result Encounter Kamila Pride TRANSITION MANAGER Work Phone: [facility] Unsolicited Start: 05-15-2024 End: 05-15-2024 Office outpatient visit 25 minutes Kamila Pride TRANSITION MANAGER Work Phone: [facility] Comment on above: Edema, unspecified t ype (Primary Dx); Pulmonary fibrosis, unspecified (CMS/HCC); Acute congestive heart failure, unspecified heart failure type (CMS/HCC); Generalized weakness; Pneumonia of both lungs due to infectious organism, unspecified part of lung Start: 05-15-2024 End: 05-15-2024 ambulatory KAMILA PRIDE Not Available Start: 05-12-2024 End: 05-14-2024 Clinisync Result Encounter Generic External Data Provider [facility] External Department Unsolicited Start: 05-12-2024 End: 05-14-2024 Clinisync Result Encounter Generic External Data Provider [facility] External Department Unsolicited Start: 05-07-2024 End: 05-07-2024 Office outpatient visit 25 minutes Kamila Pride TRANSITION MANAGER Work Phone: [facility] Comment on [...] (CMS/HCC) Start: 05-07-2024 End: 05-07-2024 ambulatory KAMILA PRIDE Not Available Start: 04-29-2024 End: 04-29-2024 ambulatory Mala HandMaryjane Facility:[facility] Start: 04-15-2024 End: 04-16-2024 Refill Kamila Pride TRANSITION MANAGER Work Phone: [facility] Comment on above: Primary insomnia Start: 04-04-2024 End: 04-04-2024 Orders Only Kamila Pride TRANSITION MANAGER Work Phone: [facility] Comment on above: Acute pulmonary omid a (CMS/HCC) (Primary Dx); Hypokalemia Start: 04-03-2024 End: 04-03-2024 Bamboo flowsheet Kamila Pride TRANSITION MANAGER Work Phone: [facility] Start: 04-03-2024 End: 04-03-2024 Bamboo flowsheet Kamila Pride TRANSITION MANAGER Work Phone: [facility] Start: 04-03-2024 End: 04-03-2024 ambulatory KAMILA PRIDE Not Available Start: 04-03-2024 End: 04-03-2024 Office outpatient visit 25 minutes Kamila Pride TRANSITION MANAGER Work Phone: [facility] Comment on above: Acute cough (Primary Dx); Rib pain; Fall, initial encounter; Shortness of breath; Lumbosacral spondylosis without myelopathy; Pain of right hand; Right wrist pain; Acute non-recurrent sinusitis of other sinus Start: 04-03-2024 End: 04-03-2024 ambulatory KAMILA PRIDE Not Available Start: 03-07-2024 End: 03-07-2024 Bamboo flowsheet Waqas Dugan DO Work Phone: [facility] Start: 03-07-2024 End: 03-07-2024 Bamboo flowsheet Bullchinedu Dugan DO Work Phone: [facility] Start: 03-07-2024 End: 03-07-2024 Patient encounter procedure Bullchinedu Dugan DO Work Phone: [facility] Comment on above: Carpal tunnel syndro me on left (Primary Dx) Start: 03-07-2024 End: 03-07-2024 ambulatory WAQAS DUGAN Not Available Start: 03-05-2024 End: 03-05-2024 Bamboo flowsheet Kamila Pride TRANSITION MANAGER Work Phone: [facility] Start: 03-05-2024 End: 03-05-2024 Bamboo flowsheet Kamila Pride TRANSITION MANAGER Work Phone: [facility] Start: 03-05-2024 End: 03-05-2024 Office outpatient visit 25 minutes Kamila Pride TRANSITION MANAGER Work Phone: [facility] Comment on above: Cellulitis of finger of left hand (Primary Dx); Flu vaccine need; Numbness of hand; Encounter for screening mammogram for malignant neoplasm of breast; Lymphadenopathy; Axillary pain, left; Ankylosing spondylitis of thoracic region ([facility]) Start: 03-05-2024 End: 03-05-2024 ambulatory KAMILA PRIDE Not Available Start: 02-29-2024 End: 02-29-2024 Refill Roc Steele MD Work Phone: [facility] Comment on above: 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 Start: 02-22-2024 End: 02-22-2024 Patient encounter procedure Alex Alfredo DPM Work Phone: [facility] Comment on above: Pain due to onychomy cosis of toenails of both feet (Primary Dx) Start: 02-22-2024 End: 02-22-2024 Bamboo flowsheet Alex Alfredo DPM Work Phone: [facility] Start: 02-22-2024 End: 02-22-2024 Bamboo flowsheet Alex Alfredo DPM Work Phone: [facility] Start: 02-22-2024 End: 02-22-2024 ambulatory ALEX ALFREDO Not Available Start: 01-29-2024 End: 01-29-2024 Refill Roc Steele MD Work Phone: [facility] Comment on above: Benign essential hyp ertension ([facility]) Start: 12-14-2023 End: 12-14-2023 ambulatory ALEX ALFREDO Not Available Start: 11-30-2023 End: 11-30-2023 ambulatory KAMILA PRIDE Not Available Start: 06-15-2023 End: 06-15-2023 Office outpatient visit 15 minutes Alex Alfredo DPM Work Phone: [facility] Comment on above: Subungual exostosis of great toe (Primary Dx); Onychocryptosis; Toe pain, right; Toe pain, left Start: 06-15-2023 Chart abstracting Alex winkler DPM Work Phone: [facility] Start: 06-01-2023 End: 06-01-2023 Office outpatient visit 15 minutes Alex Alfredo DPM Work Phone: [facility] Comment on above: Subungual exostosis of great toe (Primary Dx); Onychocryptosis; Toe pain, right Start: 10-04-2022 Patient encounter procedure OR [facility]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 Roc Steele II Facility:[id number] Start: 09-05-2022 End: 09-05-[address] SARABJIT CORNEJO . Facility:[facility] Start: 09-03-2022 End: 09-03-2022 ambulatory SASHA DUTTA . Facility:[facility] Start: 06-06-2022 End: 06-07-[address] ROC STEELE Facility:[facility] Start: 12-16-2020 Patient encounter procedure Mone Weiss MD Work Phone: [facility] [facility] [place] Work Phone: Start: 11-25-2020 Chart Update Tasia Crawford Work Phone: [facility] [place] Work Phone: Start: 10-15-2020 Patient encounter procedure Carmen Bird MD Work Phone: [facility] [place] Work Phone: Start: 02-13-2020 Patient encounter procedure Tasia Bird [facility] [place] Work Phone: Start: 01-16-2020 Patient encounter procedure Tasia Bird [facility] [place] Work Phone: Procedures Date Procedure Procedure Detail Performing Clinician Start: 09-18-2024 Echo tthrc r-t 2d w/wom-mode compl spec&colr d Amber Hawley MD Work Phone: Start: 07-26-2024 Lipid 1996 panel - S ade or Plasma Jessica 2 Start: 07-18-2024 MM TOMOSYNTHESIS SCR EENING BI Roc Steele MD Work Phone: Start: 07-15-2024 Ecg routine ecg w/le ast 12 lds w/i&r Amebr Hawley MD Work Phone: Start: 07-11-2024 Hemoglobin glycosyla isabel a1c Kamila Pride TRANSITION MANAGER Work Phone: Start: 05-16-2024 ALL BASIC METABOLIC PANEL Kamila Pride TRANSITION MANAGER Work Phone: Start: 05-12-2024 BLOOD CULTURE 1 Generic External Data Provider Start: 03-07-2024 End: 03-07-2024 Needle emg ea extremty w/paraspinl area complete Waqas Dugan DO Work Phone: Implantation of join t prosthesis Tasia Bird Plan of Treatment Date Care Activity Detail Author Start: 07-26-2029 Lipid panel Lipid Panel [facility] Start: 07-26-2026 Screening for osteoporosis Bone Density Scan [facility] Start: 09-18-2025 Echocardiography Echocardiogram [facility] Start: 2024 End: 2024 Patient encounter procedure 2024 2:15 PM EDT Office Visit [address] [phone] Amber Hawley MD [address] [place] [id number] [facility] Start: 11-04-2024 End: 11-04-2024 Patient encounter procedure 11/04/2024 2:30 PM EDT Office Visit [address] [address] Amber Hawley MD [address] [place] [id number] [facility] Start: 10-30-2024 End: 10-30-2024 Patient encounter procedure 10/30/2024 11:30 AM EDT Office Visit [facility] [address] [facility] [address] [place] [address] Kamila Pride, TRANSITION MANAGER [address] [place] [address] [facility] Start: 10-10-2024 End: 10-10-2024 Patient encounter procedure 10/10/2024 3:00 PM EDT Procedure Visit [facility] [address] [facility] [address] [place] [id number] Alex Alfredo, DPRen [address] [facility] [address] [place], [place] [id number] [facility] Start: 09-19-2024 End: 09-19-2024 Professional / ancillary services management 09/19/2024 1:00 PM EDT Ancillary Procedure [place] [id number] [facility] [address] [place] [address] [facility] Start: 09-19-2024 End: 09-19-2024 [facility] Start: 09-19-2024 Subsequent hospital visit by physician 09/19/2024 11:30 AM EDT Hospital Encounter [facility] [address] [facility] [address] [place] [address] [facility] Start: 09-18-2024 End: 09-18-2024 [facility] Start: 08-01-2024 End: 08-01-2024 Patient encounter procedure [facility] Comment on above: Arrived Start: 07-23-2024 End: 07-23-2024 Professional / ancillary services management 07/23/2024 11:30 AM EDT Ancillary Procedure [facility] [address] [facility] [address] [place] [id number] [facility] Start: 07-15-2024 End: 07-15-2025 Holter monitor study Holter Or Event Heel [facility] Cardiac Services Routine Paroxysmal supraventricular tachycardia (CMS-HCC) Abnormal EKG Lightheadedness Chest discomfort Palpitations Expected: 07/15/2024 (Approximate), Expires: 07/15/2025 [facility] Work Phone: Comment on above: Expected: 07/15/2024 (Approximate), Expi res: 07/15/2025 Start: 07-15-2024 End: 07-15-2026 NM Heart Perfusion W stress and W radionuclide IV Nuclear Stress Test Cardiac Nuclear Medicine Routine Lightheadedness Chest discomfort Palpitations Mixed hyperlipidemia Expected: 07/15/2024 (Approximate), Expires: 07/15/2026 [facility] Work Phone: Comment on above: Expected: 07/15/2024 (Approximate), Expi res: 07/15/2026 Start: 07-15-2024 End: 07-15-2026 US Heart Transthoracic Transthoracic Echo Complete Echocardiography Routine Paroxysmal supraventricular tachycardia (CMS-HCC) Abnormal EKG Palpitations Expected: 07/15/2024 (Approximate), Expires: 07/15/2026 [facility] Service Area Work Phone: Comment on above: Expected: 07/15/2024 (Approximate), Expi res: 07/15/2026 Start: 07-11-2024 End: 07-11-2025 DXA Skeletal system Views for bone density DEXA bone density Imaging Routine Osteopenia of both hips Decreased estrogen level Expected: 07/11/2024, Expires: 07/11/2025 [employer] Work Phone: Comment on above: Expected: 07/11/2024, Expires: Start: 07-11-2024 End: 07-11-2025 Lipid 1996 panel - Serum or Plasma Lipid panel Lab Routine Hyperlipidemia, unspecified hyperlipidemia type (CMS/HCC) Medicare annual wellness visit, subsequent Expected: 07/11/2024 (Approximate), Expires: 07/11/2025 [facility] Comment on above: Expected: 07/11/2024 (Approximate), Expi res: 07/11/2025 Start: 07-11-2024 End: 07-11-2025 Microalbumin/Creatinine panel in random Urine Microalbumin / creatinine, urine ratio Lab Routine IGT (impaired glucose tolerance) Expected: 07/11/2024 (Approximate), Expires: 07/11/2025 [facility] Healthcare Comment on above: Expected: 07/11/2024 (Approximate), Expi res: 07/11/2025 Start: 07-11-2024 End: 07-11-2024 Patient encounter procedure 07/11/2024 1:00 PM EDT Office Visit [facility] [address] [place] [address] Kamila Pride TRANSITION MANAGER [address] [place] [address] [facility] Start: 07-06-2024 Medicare Annual Wellness Visit Medicare Annual Wellness Visit (AWV) [facility] Start: 07-05-2024 Medicare Annual Wellness (AWV) Medicare Annual Wellness (AWV) [facility] Start: 07-03-2024 End: 07-03-2025 Comprehensive metabolic 2000 panel - Serum or Plasma Comprehensive metabolic panel Lab Routine Stage 3b chronic kidney disease (HCC) (CMS/HCC) Expected: 07/03/2024 (Approximate), Expires: 07/03/2025 [facility] Work Phone: Comment on above: Expected: 07/03/2024 (Approximate), Expi res: 07/03/2025 Start: 07-03-2024 End: 07-03-2025 Magnesium [Mass/volume] in Serum or Plasma Magnesium Lab Routine Stage 3b chronic kidney disease (HCC) (CMS/HCC) Weakness Other fatigue Expected: 07/03/2024 (Approximate), Expires: 07/03/2025 [facility] Healthcare Comment on above: Expected: 07/03/2024 (Approximate), Expi res: 07/03/2025 Start: 07-03-2024 End: 07-03-2025 XR Hip - right 3 Views XR hip right 2 or 3 views Imaging Routine Pain of right hip Fall, initial encounter Expected: 07/03/2024, Expires: 07/03/2025 [facility] Comment on above: Expected: 07/03/2024, Expires: Start: 07-03-2024 End: 07-03-2024 Patient encounter procedure 07/03/2024 11:30 AM EST Office Visit [facility] [address] [place] [address] Kamila Pride NP [address] [place] [address] Arrived [facility] Comment on above: Arrived Start: 06-11-2024 End: 06-11-2025 Natriuretic peptide B [Mass/volume] in Blood B-type natriuretic peptide Lab Routine Acute congestive heart failure, unspecified heart failure type ([facility]/HCC) Expected: 06/11/2024 (Approximate), Expires: 06/11/2025 [facility] Work Phone: Comment on above: Expected: 06/11/2024 (Approximate), Expi res: 06/11/2025 Start: 06-11-2024 End: 06-11-2024 Patient encounter procedure 06/11/2024 11:00 AM EST Office Visit [facility] [address] [place] [address] Kamila Pride NP [address] [place] [address] Arrived [facility] Comment on above: Arrived Start: 05-23-2024 End: 05-23-2024 Patient encounter procedure 05/23/2024 2:40 PM EST Procedure Visit [facility] [address] [place] [address] Alxe Alfredo DPRen [address] [facility] [address] [place] [address] [facility] Start: 05-22-2024 End: 05-22-2025 CBC panel - Blood by Automated count CBC Lab Routine Stage 3b chronic kidney disease (HCC) (CMS/HCC) Expected: 05/22/2024 (Approximate), Expires: 05/22/2025 [facility] Comment on above: Expected: 05/22/2024 (Approximate), Expi res: 05/22/2025 Start: 05-22-2024 End: 05-22-2025 Comprehensive metabolic 2000 panel - Serum or Plasma Comprehensive metabolic panel Lab Routine Stage 3b chronic kidney disease (HCC) (CMS/HCC) Expected: 05/22/2024 (Approximate), Expires: 05/22/2025 [facility] Work Phone: Comment on above: Expected: 05/22/2024 (Approximate), Expi res: 05/22/2025 Start: 05-22-2024 End: 05-22-2025 Magnesium [Mass/volume] in Serum or Plasma Magnesium Lab Routine Hypomagnesemia Expected: 05/22/2024 (Approximate), Expires: 05/22/2025 [facility] Healthcare Comment on above: Expected: 05/22/2024 (Approximate), Expi res: 05/22/2025 Start: 05-22-2024 End: 05-22-2024 Patient encounter procedure 05/22/2024 10:00 AM EST Office Visit [facility] [address] [place] [address] Kamila Pride TRANSITION MANAGER [address] [place] [address] Arrived [facility] Comment on above: Arrived Start: 05-16-2024 End: 05-16-2024 Patient encounter procedure 05/16/2024 1:00 PM EST Office Visit [facility] [address] [place] [address] Kamila Pride TRANSITION MANAGER [address] [place] [address] [facility] Start: 05-15-2024 End: 05-15-2025 Basic metabolic 1998 panel - Serum or Plasma Basic metabolic panel Lab Routine Acute congestive heart failure, unspecified heart failure type ([facility]/HCC) Expected: 05/15/2024 (Approximate), Expires: 05/15/2025 [facility] Work Phone: Comment on above: Expected: 05/15/2024 (Approximate), Expi res: 05/15/2025 Start: 05-15-2024 End: 05-15-2024 Patient encounter procedure 05/15/2024 11:30 AM EST Office Visit [facility] [address] [place] [address] Kamila Pride, TRANSITION MANAGER [address] [place] [address] [facility] Start: 05-14-2024 End: 05-14-2024 Patient encounter procedure 05/14/2024 11:00 AM EST Office Visit [facility] [address] [place] [address] Kamila Pride, TRANSITION MANAGER [address] [place] [address] [facility] Start: 05-02-2024 End: 05-02-2024 Patient encounter procedure 05/02/2024 2:50 PM EST Procedure Visit [facility] [address] [place] [address] Alex Alfredo, DPRen [address] [facility] [address] [place] [address] [facility] Start: 04-03-2024 End: 04-03-2025 XR Chest 2 Views [facility] Work Phone: Comment on above: Expected: 04/03/2024, Expires: 5 Start: 04-03-2024 End: 04-03-2025 XR Hand - right 3 Views [facility] Comment on above: Expected: 04/03/2024, Expires: 5 Start: 04-03-2024 End: 04-03-2024 Patient encounter procedure 04/03/2024 9:00 AM EST Office Visit [facility] [address] [place] [address] Kamila Pride, TRANSITION MANAGER [address] [address] [place] [address] Arrived [facility] Comment on above: Arrived Start: 03-07-2024 End: 03-07-2024 Patient encounter procedure 03/07/2024 11:00 AM EST Procedure Visit [facility] [address] [facility] [place] [id number] Waqas Dugan DO [address] [place] [address] Numbness of hand [facility] Comment on above: Numbness of hand Start: 03-05-2024 End: 05-05-2025 MG Breast - bilateral Screening Bilateral screening mammogram Imaging Routine Encounter for screening mammogram for malignant neoplasm of breast Expected: 03/05/2024, Expires: 05/05/2025 [facility] Work Phone: Comment on above: Expected: 03/05/2024, Expires: 6 Start: 03-05-2024 End: 03-05-2025 US Axilla US Axilla Imaging Routine Lymphadenopathy Axillary pain, left Expected: 03/05/2024, Expires: 03/05/2025 [facility] Comment on above: Expected: 03/05/2024, Expires: 5 Start: 03-05-2024 End: 03-05-2024 Patient encounter procedure [facility] Comment on above: Arrived Start: 02-29-2024 End: 02-29-2024 Patient encounter procedure 02/29/2024 2:00 PM EDT Office Visit [facility] [address] [facility] [address] [place] [address] Kamila Pride NP [address] [facility] [address] [place] [address] [facility] Start: 02-22-2024 End: 02-22-2024 Patient encounter procedure [facility] Comment on above: Pain due to onychomycosis of toenails of both feet (Primary Dx) Start: 01-31-2024 Influenza vaccination Influenza Vaccine (#1) [facility] Comment on above: Postponed from 12/31/2023 (Other Medical Reasons) Start: 12-31-2023 COVID-19 Vaccine ( season) COVID-19 Vaccine ( season) [facility] Start: 12-31-2023 Influenza vaccination Influenza Vaccine (#1) [facility] Start: 07-27-2023 End: 07-27-2023 Patient encounter procedure 07/27/2023 3:30 PM EDT Procedure Visit [facility] [address] [place] [address] Alex Alfredo DPM [address] [address] [facility] Start: 06-30-2023 Medicare Annual Wellness (AWV) Medicare Annual Wellness (AWV) [facility] Start: 06-29-2023 End: 06-29-2023 Patient encounter procedure 06/29/2023 2:30 PM EST Office Visit [facility] [address] [place] [address] Alex Alfredo DPM [address] [address] [facility] Start: 06-15-2023 End: 06-15-2023 Patient encounter procedure 06/15/2023 2:30 PM EST Office Visit [facility] [address] [facility] [address] [place] [address] Alex Alfredo DPM [address] [address] [facility] Start: 10-21-2022 Screening for osteoporosis Bone Density Scan [facility] Start: 10-17-2022 NPV, Provider: Roc Alvarado, Status: Hang, Time: 1:30 PM NPV, Provider: Roc Alvarado, Status: Pen, Time: 1:30 PM [facility] [place] Work Phone: Start: 2021 RSV High Risk: (Elderly (60+) or Population) (1 - 1-dose 75+ series) RSV High Risk: (Elderly (60+) or Population) (1 - 1-dose 75+ series) [facility] Start: 01-29-2021 Creatinine measurement Creatinine Level [facility] Start: 01-29-2021 Potassium measurement Potassium Level [facility] Start: 01-07-2021 FUV, Provider: Tasia Bird, Status: Pen, Time: 2:15 PM FUV, Provider: Tasia Bird, Status: Pen, Time: 2:15 PM [facility] [place] Work Phone: Start: 12-03-2020 FUV, Provider: Tasia Bird, Status: Pen, Time: 12:45 PM FUV, Provider: Tasia Bird, Status: Pen, Time: 12:45 PM -[facility] [place] Work Phone: Start: 1968 DTaP/Tdap/Td Vaccines (1 - Tdap) DTaP/Tdap/Td Vaccines (1 - Tdap) [facility] Start: 1965 Urine screening for protein CKD: Urine Protein Screening [facility] Start: 1964 Diabetes mellitus screening Diabetes Screening [facility] Start: 1964 Hepatitis C screening Hepatitis C Screening [facility] Start: 1946 Echocardiography Echocardiogram [facility] Start: 1946 Lipid panel Lipid Panel [facility] BLOOD CULTURE 1 BLOOD CULTURE 1 Lab Routine 05/12/2024 8:10 PM EST [facility] End: 09-18-2024 NM Heart Perfusion W stress and W radionuclide IV [facility] Service Area Work Phone: Comment on above: Once for 1 Occurrences starting 09/19/19 until 09/18/2024 Immunizations Immunization Date Immunization Notes Care Provider Hao allred 03-05-2024 Influenza, High-dose Seasonal, Quadrivalent, Preservative Free Kamila Pride NP Work Phone: [facility] 03-01-2023 Influenza, High-dose Seasonal, Quadrivalent, Preservative Free Alex Alfredo DPM Work Phone: [facility] 03-01-2023 influenza virus vacc ine, unspecified formulation Roc Steele MD Work Phone: [facility] 03-31-2022 Moderna Bivalent Pereira ster Vaccination Alex Alfredo DPM Work Phone: [facility] 03-23-2022 Influenza, High-dose Seasonal, Quadrivalent, Preservative Free Alex Alfredo DPM Work Phone: [facility] 01-28-2021 Influenza, Seasonal, Quadrivalent, Adjuvanted Alex Alfredo DPM Work Phone: [facility] 01-30-2020 influenza, injectabl e, quadrivalent, preservative free Alex Alfredo DPM Work Phone: [facility] 09-26-2019 zoster vaccine recombinant N todd Alfredo DPM Work Phone: [facility] 05-16-2019 zoster vaccine recombinant N todd Alfredo DPM Work Phone: [facility] 01-31-2018 influenza, high dose seasonal, preservative-free Alex Alfredo DPM Work Phone: [facility] 01-25-2017 influenza, high dose seasonal, preservative-free Alex Alfredo DPM Work Phone: [facility] 02-02-2016 influenza, injectabl e, quadrivalent, contains preservative Alex Alfredo DPM Work Phone: [facility] 02-07-2015 pneumococcal conjuga te vaccine, 13 valent Alex Alfredo DPM Work Phone: [facility] 01-30-2015 seasonal influenza, intradermal, preservative free Alex Alfredo DPM Work Phone: [facility] 02-07-2014 seasonal influenza, intradermal, preservative free Alex Yonatan DPM Work Phone: [facility] 12-11-2013 pneumococcal polysaccharide vaccine, 23 valent Alex Brown DPM Work Phone: [facility] 01-17-2012 zoster vaccine, live Zoya delatorre Yonatan DPM Work Phone: [facility] Payers Date Payer Category Payer Private Health Insurance [id number] 2022 Unknown 2008 Medicare [id number] 2008 Medicare [id number] 1959 Medicare [id number] 1959 Unknown [id number] 1946 Unknown [id number] 2.16.84 0.1.239995.3.579.2.593 1946 Unknown [id number] 2.16.84 0.1.435324.3.579.2.593 1946 Unknown [id number] 2.16.84 0.1.933269.3.579.2.593 1946 Unknown [id number] 2.16.8 40.1.810780.3.579.2.1068 1946 Unknown [id number] 2.16.8 40.1.049363.3.579.2.1246 1946 Unknown [id number] 2.16.8 40.1.469587.3.579.2.1246 1946 Unknown [id number] 2.16.8 40.1.799985.3.579.2.1246 1946 Unknown [id number] 2.16.8 40.1.911278.3.579.2.1246 1946 Unknown [id number] 2.16.8 40.1.522091.3.579.2.1246 1946 Unknown [id number] 2.16.8 40.1.091294.3.579.2.1246 1946 Unknown [id number] 2.16. 840.1.460624.3.579.2.1244 1946 Unknown [id number] 2.16. 840.1.059047.3.579.2.1244 1946 Unknown [id number] 2.16. 840.1.598479.3.579.2.196 1946 Unknown [id number] 2.16.8 40.1.551398.3.579.2.1259 1946 Unknown [id number] 2.16.84 0.1.098646.3.579.2.1259 1946 Unknown [id number] 2.16.84 0.1.788962.3.579.2.1259 1946 Unknown [id number] 2.16.84 0.1.074778.3.579.2.1259 1946 Unknown [id number] 2.16.84 0.1.861960.3.579.2.1259 1946 Unknown [id number] 2.16.84 0.1.670597.3.579.2.1259 1946 Unknown [id number] 2.16.84 0.1.267879.3.579.2.1259 1946 Unknown [id number] 2.16.84 0.1.683042.3.579.2.1259 1946 Unknown [id number] 2.16.84 0.1.169132.3.579.2.1259 1946 Unknown [id number] 2.16.84 0.1.062385.3.579.2.1259 1946 Unknown [id number] 2.16.84 0.1.450119.3.579.2.1259 1946 Unknown [id number] 2.16.84 0.1.669776.3.579.2.1258 1946 Unknown [id number] 2.16.84 0.1.133893.3.579.2.1258 1946 Unknown [id number] 2.16.84 0.1.048065.3.579.2.1258 1946 Unknown [id number] 2.16.84 0.1.204417.3.579.2.1258 1946 Unknown [id number] 2.16.84 0.1.995498.3.579.2.1258 1946 Unknown [id number] 2.16.84 0.1.620937.3.579.2.1258 1946 Unknown [id number] 2.16.84 0.1.292822.3.579.2.1258 1946 Unknown [id number] 2.16.84 0.1.430304.3.579.2.1258 1946 Unknown [id number] 2.16.84 0.1.650542.3.579.2.1258 1946 Unknown [id number] 2.16.84 0.1.499353.3.579.2.1259 Social History Date Type Detail Facility Start: 11-25-2022 End: 07-15-2024 Never a smoker Never a smoker [facility] Work Phone: Start: 10-03-2022 End: 07-15-2024 Tobacco smoking status NMIS Never smoked tobacco [facility] Start: 10-03-2022 End: 07-15-2024 Tobacco use and exposure Smokeless tobacco non-user [facility] Start: 06-01-2023 End: 08-19-2024 Alcohol intake Lifetime non-drinker (finding) [facility] Start: 11-25-2022 End: 07-15-2024 Humiliation, Afraid, Rape, and Kick questionnaire [HARK] [facility] Work Phone: Within the last year [...] At Not on file [facility] Start: 07-05-2024 End: 09-18-2024 Exposure to SARS-CoV-2 (event) Not sure [facility] NEGATED: Highlighted row - - -[facility]-Reynaldo crawford [place] Work Phone: Medical Equipment Procedure Code Equipment Code Equipment Original Text Equipment Identifier Dates Screw, Low Profile Hex, 6.5 X 15 Mm Case [id number] Start: 01-29-2020 Comment on above: Description: Convert ed from [facility]. Please see archived information for full log information. Screw, Low Profile Hex, 6.5 X 25 Mm Case [id number] Start: 01-29-2020 Comment on above: Description: Convert ed from [facility]. Please see archived information for full log information. Head, Femur V40 36mm +2.5mm Biolox Delta Case [id number] Start: 01-29-2020 Comment on above: Description: Convert ed from [facility]. Please see archived information for full log information. Stem, Femur 132d Sz 5 [place] Ii Case [id number] Start: 01-29-2020 Comment on above: Description: Convert ed from [facility]. Please see archived information for full log information. Shell, Trident Ii, Cluster[place], [place] 52e Case [id number] Start: 01-29-2020 Comment on above: Description: Convert ed from [facility]. Please see archived information for full log information. Liners, Poly 36 X 10 D Trid Crossfire E Case [id number] Start: 01-29-2020 Comment on above: Description: Convert ed from [facility]. Please see archived information for full log information. Functional Status Date Assessment Result Facility 08-19-2024 Patient Health Questionnaire 2 item (PHQ-2) [Reported] [facility] NEGATED: Highlighted row Functional performance Functional status health issues are not documented [facility] [place] Work Phone: Mental Status Date Assessment Result Facility NEGATED: Highlighted row Cognitive function [Interpretation] Cognitive status health issues are not documented Disease [facility] [place] Work Phone: Clinical Notes 06-01-2023 to 08-19-2024 Roc Steele MD - 08/19/2024 11:15 AM EDTAlex Alfredo DPM - 08/01/2024 2:30 PM Etta Pride NP - 08/01/2024 1:30 PM Kerri Hawley MD - 07/15/2024 11:15 AM EDTPatient Instructions Note Date & Type Note Facility 08-19-2024 History of Present illness Narrative Images from the original note were not included. HPI prolia injection Additional comments: Here for injection billed and shipped from [facility] Last edited by Katie Ritter LPN on 08/19/2024 11:24 AM. Subjective Patient ID: Luma Ribeiro is a 78 y.o. female who presents for prolia injection (Here for injection billed and shipped from [facility]) and Osteoporosis. Patient complains of osteoporosis. She was diagnosed with osteoporosis by bone density scan Patient denies history of fracture. The cause of osteoporosis is felt to be due to postmenopausal estrogen deficiency. She is currently being treated with prolia Current Outpatient Medications on File Prior to Visit Medication Sig Dispense Refill albuterol HFA (Ventolin HFA) 90 mcg/act inhaler Inhale 2 puffs every 4 (four) hours if needed for wheezing or shortness of breath (cough) 54 g 3 ALPRAZolam (Xanax) 0.25 MG tablet Take 1 tablet (0.25 mg) by mouth 2 (two) times a day as needed for anxiety 60 tablet 0 Calcium Carb-Cholecalciferol 600-20 MG-MCG chewable tablet calcium carb 600 mg(1,500 mg)-vit D3 400 unit-minerals chewable tablet Take by oral route. denosumab (Prolia) 60 MG/ML solution prefilled syringe Inject 1 mL (60 mg) under the skin 1 (one) time for 1 dose 1 mL 0 fexofenadine (Radha) 180 MG tablet Take 1 tablet (180 mg) by mouth Daily as needed (alleriges) 90 tablet 3 furosemide (Lasix) 20 MG tablet Take 1 tablet (20 mg) by mouth Daily 90 tablet 3 gabapentin (Neurontin) 300 MG capsule TAKE 1 CAPSULE BY MOUTH TWICE DAILY 200 capsule 3 HYDROcodone-acetaminophen (Bancroft) 5-325 MG tablet Take 1 tablet by mouth every 4 (four) hours if needed for moderate pain or severe pain 180 tablet 0 meloxicam (Mobic) 15 MG tablet TAKE 1 TABLET BY MOUTH ONCE DAILY 100 tablet 3 metoprolol succinate XL (Toprol-XL) 50 MG 24 hr tablet Take 1 tablet (50 mg) by mouth in the morning and 1 tablet (50 mg) before bedtime. 90 tablet 3 Multiple Vitamin (Multi Vitamin) [...] tablet 0 zolpidem (Ambien) 10 MG tablet Take 1 tablet (10 mg) by mouth at bedtime 90 each 0 No current facility-administered medications on file [...] Diagnosis Date Cardiomegaly Diverticulosis 2012 Edema Glaucoma Heart disease, unspecified History of lumbar surgery [...] INJECTION x7 NERVE BLOCK Left 03/26/2019 T12-L3 [place] TOTAL HIP ARTHROPLASTY Left [place] (01-29-2020 to 01-30-2020) RADIOFREQUENCY ABLATION Left 06/25/2019 L2-L5 REFRACTIVE SURGERY 2015 SHOULDER SURGERY left TOTAL KNEE ARTHROPLASTY Bilateral left 2002 right 2003 US ASPIRATION INJECTION INTERMEDIATE JOINT 12/16/2020 US ASPIRATION INJECTION INTERMEDIATE JOINT 12/16/2020 Visit Vitals BP 138/86 Pulse 89 Ht 5' 2 Wt 268 lb SpO2 96% BMI 49.02 kg/m Smoking Status Never BSA 2.31 m Review of Systems Objective Physical Exam Vitals reviewed. Constitutional: Appearance: Normal appearance. HENT: Head: Normocephalic. Nose: Nose normal. Mouth/Throat: Mouth: Mucous membranes are moist. Pharynx: Oropharynx is clear. Eyes: Conjunctiva/sclera: Conjunctivae normal. Cardiovascular: Rate and Rhythm: Normal rate and regular rhythm. Heart sounds: Normal heart sounds. Pulmonary: Effort: Pulmonary effort is normal. Breath sounds: Normal breath sounds. Skin: General: Skin is warm and dry. Neurological: General: No focal deficit present. Mental Status: She is alert and oriented to person, place, and time. Psychiatric: Mood and Affect: Mood normal. Behavior: Behavior normal. Thought Content: Thought content normal. Judgment: Judgment normal. Assessment/Plan Diagnoses and all orders for this visit: Age-related osteoporosis without current pathological fracture ([facility]) - Prolia injection today. Osteopenia of both hips Chronic cough - Consider ENT referral if it persists. Follow up in about 2 months (around 10/19/2024). documented in this encounter [facility] 08-01-2024 History of Present illness Narrative Patient: Luma Ribeiro : 1945 [...] Diagnosis Date Cardiomegaly Diverticulosis 2013 Edema Glaucoma ([facility]) Heart disease, unspecified History of lumbar surgery multiple times HTN (hypertension) ([facility]/HCC) Hyperlipidemia ([facility]) Insomnia Lumbago Lumbosacral spondylosis without myelopathy Myalgia, unspecified site Myositis Occlusion and stenosis of unspecified carotid artery without mention of cerebral infarction CARO (obstructive sleep apnea) Osteoarthrosis unspecified wheteher generalized or localized. unspecified site Osteopenia Paroxysmal supraventricular tachycardia ([facility]) Medications: Current Outpatient Medications: ALPRAZolam (Xanax) 0.25 MG tablet, Take 1 tablet (0.25 mg) by mouth 2 (two) times a day as needed for anxiety, Disp: 60 tablet, Rfl: 0 Calcium Carb-Cholecalciferol 600-20 MG-MCG chewable tablet, calcium carb 600 mg(1,500 mg)-vit D3 400 unit-minerals chewable tablet Take by oral route., Disp: , Rfl: furosemide (Lasix) 20 MG tablet, Take 1 tablet (20 mg) by mouth Daily, Disp: 90 tablet, Rfl: 3 gabapentin (Neurontin) 300 MG capsule, TAKE 1 CAPSULE BY MOUTH TWICE DAILY, Disp: 200 capsule, Rfl: 3 meloxicam (Mobic) 15 MG tablet, TAKE 1 TABLET BY MOUTH ONCE DAILY, Disp: 100 tablet, Rfl: 3 metoprolol succinate XL (Toprol-XL) 50 MG 24 hr tablet, Take 1 tablet (50 mg) by mouth in the morning and 1 tablet (50 mg) before bedtime., Disp: 90 tablet, Rfl: 3 Multiple Vitamin [...] Rfl: 0 zolpidem (Ambien) 10 MG tablet, Take 1 tablet (10 mg) by mouth at bedtime, Disp: 90 each, Rfl: 0 Social History: Social History Socioeconomic History Marital status: Spouse name: Not on file Number of children: Not on file Years of education: Not on file Highest education level: Not on file Occupational History Not on file Tobacco Use Smoking status: Never Smokeless tobacco: Never Vaping Use Vaping status: Never Used Substance and Sexual Activity Alcohol use: Never [...] min Stress: No Stress Concern Present (11/25/2022) [employer] [place] [employer] - Occupational Stress Questionnaire Feeling of Stress : Only a little Social Connections: Moderately Isolated (11/25/2022) Social Connection and Isolation Panel [NHANES] Frequency of Communication with Friends and Family: More than three times a week Frequency of Social Gatherings with Friends and Family: Once a week Attends Christianity Services: Never Active Member of Clubs or [...] feet ORTHO: Positive pain on palpation to toenails of the left 2,3,4,5 toes and right 1,2,3,4,5 toes ASSESSMENT 1. Pain due to onychomycosis of toenails of both feet PLAN Discussed proper foot care with patient today. Debride nails in length and thickness digits 1 through 9 Alxe Alfredo DPM documented in this encounter [facility] 08-01-2024 History of Present illness Narrative Images from the original note were not included. Subjective Patient ID: Luma Ribeiro is a 78 y.o. female who presents for No chief complaint on file.. Luma presents today for an ongoing cough that she has had for over 3 months. In may she was put on tessalon and in June she was put on a steroid pack. She is still coughing. Sometimes she will cough for over na hour. Cough This is a chronic problem. The current episode started more than 1 month ago. The problem has been unchanged. The problem occurs every few hours. The cough is Productive of sputum. Associated symptoms include postnasal drip. Nothing aggravates the symptoms. She has tried oral steroids, OTC cough suppressant and prescription cough suppressant (Claritin) for the symptoms. The treatment provided mild relief. Her past medical history is significant for pneumonia. Current Outpatient Medications on File Prior to Visit Medication Sig Dispense Refill ALPRAZolam (Xanax) 0.25 MG tablet Take 1 tablet (0.25 mg) by mouth 2 (two) times a day as needed for anxiety 60 tablet 0 Calcium Carb-Cholecalciferol 600-20 MG-MCG chewable tablet calcium carb 600 mg(1,500 mg)-vit D3 400 unit-minerals chewable tablet Take by oral route. furosemide (Lasix) 20 MG tablet Take 1 tablet (20 mg) by mouth Daily 90 tablet 3 gabapentin (Neurontin) 300 MG capsule TAKE 1 CAPSULE BY MOUTH TWICE DAILY 200 capsule 3 meloxicam (Mobic) 15 MG tablet TAKE 1 TABLET BY MOUTH ONCE DAILY 100 tablet 3 metoprolol succinate XL (Toprol-XL) 50 MG 24 hr tablet Take 1 tablet (50 mg) by mouth in the morning and 1 tablet (50 mg) before bedtime. 90 tablet 3 Multiple Vitamin (Multi Vitamin) [...] tablet 0 zolpidem (Ambien) 10 MG tablet Take 1 tablet (10 mg) by mouth at bedtime 90 each 0 No current facility-administered medications on file [...] Diagnosis Date Cardiomegaly Diverticulosis 2013 Edema Glaucoma Heart disease, unspecified History of lumbar surgery [...] INJECTION x7 NERVE BLOCK Left 03/26/2019 T12-L3 [place] TOTAL HIP ARTHROPLASTY Left [place] (01-29-2020 to 01-30-2020) RADIOFREQUENCY ABLATION Left 06/25/2019 L2-L5 REFRACTIVE SURGERY 2015 SHOULDER SURGERY left TOTAL KNEE ARTHROPLASTY Bilateral left 2002 right 2003 US ASPIRATION INJECTION INTERMEDIATE JOINT 12/16/2020 US ASPIRATION INJECTION INTERMEDIATE JOINT 12/16/2020 Visit Vitals Smoking Status Never Review of Systems HENT: Positive for postnasal drip. Respiratory: Positive for cough. Objective Physical Exam Vitals reviewed. Constitutional: Appearance: Normal appearance. HENT: Head: Normocephalic. Nose: Nose normal. Mouth/Throat: Mouth: Mucous membranes are moist. Pharynx: Oropharynx is clear. Eyes: Conjunctiva/sclera: Conjunctivae normal. Cardiovascular: Rate and Rhythm: Normal rate and regular rhythm. Heart sounds: Normal heart sounds. Pulmonary: Effort: Pulmonary effort is normal. Breath sounds: Normal breath sounds. Skin: General: Skin is warm and dry. Neurological: General: No focal deficit present. Mental Status: She is alert and oriented to person, place, and time. Psychiatric: Mood and Affect: Mood normal. Behavior: Behavior normal. Thought Content: Thought content normal. Judgment: Judgment normal. Assessment/Plan Diagnoses and all orders for this visit: SOB (shortness of breath) - albuterol HFA (Ventolin HFA) 90 mcg/act inhaler; Inhale 2 puffs every 4 (four) hours if needed for wheezing or shortness of breath (cough) Use inhaler for periods of SOB and coughing in which you can not catch your breath. Chronic cough - guaiFENesin-codeine (Robitussin-AC) 100-10 MG/5ML syrup; Take 10 mL by mouth 4 (four) times a day as needed for cough for up to 5 days - albuterol HFA (Ventolin HFA) 90 mcg/act inhaler; Inhale 2 puffs every 4 (four) hours if needed for wheezing or shortness of breath (cough) Use medications as directed. You can also use warm tea with honey, cough drops and lozenges. Lumbosacral spondylosis without myelopathy - HYDROcodone-acetaminophen (Bancroft) 5-325 MG tablet; Take 1 tablet by mouth every 4 (four) hours if needed for moderate pain or severe pain Medication choice and dosage is [...] OARRS Report was reviewed for this patient. Seasonal allergic rhinitis, unspecified trigger - fexofenadine (Radha) 180 MG tablet; Take 1 tablet (180 mg) by mouth Daily as needed (alleriges) Take medication as directed. Age-related osteoporosis without current pathological fracture ([facility]) - denosumab (Prolia) 60 MG/ML solution prefilled syringe; Inject 1 mL (60 mg) under the skin 1 (one) time for 1 dose Avoid falls as you can fracture. Take calcium with vitamin D. If you get this medication from your insurance, call the office and we can give you the medication No follow-ups on file. documented in this encounter [facility] 07-15-2024 Note Normal sinus rhythm 93 bpm voltage criteria for left ventricular hypertrophy abnormal R wave progression, 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 Compared to EKG from December 2019, left axis deviation loss of lateral R waves were noted in December 2019. [facility] 07-15-2024 History of Present illness Narrative Images from the original note were not included. Chief Complaint: Patient is being seen in cardiology consultation at the request of Dr. Roc Steele for supraventricular tachycardia and congestive heart failure. Chief Complaint Patient presents with Follow-up New Patient for Supraventricular tachycardia/Congestive heart failure. Accompanied by to the office. Both patient and ambulate with the assistance of wheeled walkers. Subjective : Was hospitalized at [facility] in May 2024. She was told she had pneumonia and congestive heart failure. She was caught by surprise at the mention of congestive heart failure. She reports that her heart rate would be high during hospital stay. Since discharge, she has been following her heart rate up with a pulse oximeter, and at times it goes up into the 130s, she went to the emergency department on 1 of these occasions. She tends to have frequent falls. These are mechanical falls. She loses balance easily. On 1 occasion she fell backwards, and there was a lump on the back of her neck, and she was evaluated in the hospital at that time. She has used a walker since 2001 after knee replacement. However she was then able to ambulate independently, but has needed walker continuously since January 2024. As far as her palpitations go, they can occur at rest or with activity. Her activity level on a daily basis is probably around 4 METS. She frequently gets palpitations when she is laying down, and at times she feels like an elephant is sitting on her chest. When she walks around she gets short of breath She has history of hiatal hernia. Hospital records reviewed No documented history of coronary artery disease. FMH : Heart disease Mother Hypertension Mother Other (HTN [Other], heart disease) Mother Other (Aortic aneurysm,HTN, heart disease) Father Aortic aneurysm Father Hypertension Father Heart disease Father Past Medical History: Cardiomegaly Diverticulosis 2013 Edema Glaucoma ([facility]) Heart disease, unspecified History of lumbar surgery multiple times HTN (hypertension) ([facility]) Hyperlipidemia ([facility]) Insomnia Lumbago Lumbosacral spondylosis without myelopathy Myalgia, unspecified site Myositis Occlusion and stenosis of unspecified carotid artery without mention of cerebral infarction CARO (obstructive sleep apnea) Osteoarthrosis unspecified wheteher generalized or localized. unspecified site Osteopenia Paroxysmal supraventricular tachycardia ([facility]) Past Surgical History: Procedure Laterality Date AMB EPIDURAL STEROID INJECTION 2021 cervical neil ANKLE FRACTURE SURGERY 2018 CATARACT EXTRACTION Bilateral 2014 COLONOSCOPY 2012 HEART CATH 2016 IR INJECTION NERVE BLOCK 2018 and 2019 LUMBAR EPIDURAL INJECTION 2017 to 2021 LUMBAR TRANSFORAMINAL EPIDURAL STEROID INJECTION x7 NERVE BLOCK Left 03/26/2019 T12-L3 [place] TOTAL HIP ARTHROPLASTY Left [place] (01-29-2020 to 01-30-2020) RADIOFREQUENCY ABLATION Left 06/25/2019 L2-L5 REFRACTIVE SURGERY 2015 SHOULDER SURGERY left TOTAL KNEE ARTHROPLASTY Bilateral left 2002 right 2002 US ASPIRATION INJECTION INTERMEDIATE JOINT 12/16/2020 US ASPIRATION INJECTION INTERMEDIATE JOINT 12/16/2020 History so Far : Objective Wt Readings from Last 3 Encounters: 07/15/24 122 kg (269 lb) 01/16/20 122 kg (270 lb) Vitals: 07/15/24 1125 BP: 128/88 BP Location: Right arm Patient Position: Sitting Pulse: 93 Weight: 122 kg (269 lb) Height: 1.626 m (5' 4 ) Physical Exam: GENERAL APPEARANCE: in no acute distress. CHEST: Symmetric and non-tender. Breath sounds are distant INTEGUMENT: Skin warm and dry HEENT: No gross abnormalities identified.No pallor or scleral icterus. NECK: Supple, no JVD, no bruit. NEURO/PSHCY: Alert and oriented x3; appropriate behavior and responses and responses LUNGS: Clear to auscultation bilaterally; normal respiratory effort. HEART: Rate and rhythm regular with no evident murmur; no gallop appreciated. ABDOMEN: Obese MUSCULOSKELETAL: Bilateral knee replacement needs wheeled walker for ambulatory assistance for balance EXTREMITIES: Warm There is no edema noted. Meds: Current Outpatient Medications Medication Instructions ALPRAZolam (XANAX) 0.25 mg, Nightly PRN HYDROcodone-acetaminophen ([place]) 5-325 mg tablet 1 tablet, Every 4 hours PRN magnesium oxide (MAG-OX) 400 mg, oral, Daily meloxicam (MOBIC) 15 mg, Daily metoprolol succinate XL (TOPROL-XL) 50 mg, 2 times daily nortriptyline (PAMELOR) 30 mg pantoprazole (PROTONIX) 40 mg, Daily RT simvastatin (ZOCOR) 10 mg, Daily RT tiZANidine (ZANAFLEX) 4 mg, 3 times daily zolpidem (AMBIEN) 10 mg, Nightly Allergies Allergen Reactions Avelox [Moxifloxacin] Angioedema Ciprofloxacin Unknown Sulfa (Sulfonamide Antibiotics) Unknown LABS: Reviewed all available pertinent laboratory data and diagnostic testing results that occurred after the last office visit with me May 2024 BUN 15 creatinine 1.04 GFR 55 sodium 137 potassium 4.7 liver enzymes normal GFR was 52 in June 2023 Assessment: 1. Encounter to establish care with new doctor ECG 12 Lead 2. Paroxysmal supraventricular tachycardia (CMS-HCC) Follow Up In Cardiology magnesium oxide (Mag-Ox) 400 mg (241.3 mg magnesium) tablet Transthoracic Echo Complete Holter Or Event Heel Blacker 3. Abnormal EKG Transthoracic Echo Complete Holter Or Event Heel Blacker 4. Lightheadedness Nuclear Stress Test Holter Or Event Heel Blacker 5. Chest discomfort Nuclear Stress Test Holter Or Event Heel Blacker 6. Palpitations Transthoracic Echo Complete Nuclear Stress Test Holter Or Event Heel Blacker 7. Primary hypertension 8. Stenosis of carotid artery, unspecified laterality 9. Mixed hyperlipidemia Nuclear Stress Test 10. Stage 3a chronic kidney disease (Multi) 11. Gastroesophageal reflux disease without esophagitis 12. At high risk for falls 13. Uses roller walker 14. Severe obesity (BMI >= 40) (Multi) 15. Never smoked cigarettes Clinical Decision Making: Patient has multiple comorbidities. She also has shortness of breath which is multifactorial, BMI being appropriate contributory. She is also unable to ambulate freely because of her balance issues. She gives a history of tachycardia. She has LVH on her EKG. She has an abnormal EKG. She has multiple cardiac risk factors. At the time of hospital discharge she was started on metoprolol succinate 50 mg daily, and she says her palpitations have improved. As far as the supine chest discomfort goes, it could be GI, but given her age and risk factors, CAD workup is prudent moreover her EKG is grossly abnormal Will need additional testing to include echocardiogram, Holter monitoring, and Lexiscan Myoview. I did not change any of her cardiac medications today Follow up : after testing She understands that if symptoms escalate she needs to seek prompt medical attention thank you Dr. Steele for allowing me to participate in Luma's care, please do not hesitate to call if further questions arise, Sincerely, Amber Hawley MD [facility] I,Katty Iverson LPN am scribing for, and in the presence of Dr. Amber Hawley MD, [facility]. I, Dr. Amber Hawley MD, [facility], personally performed the services described in the documentation as scribed by Katty Iverson LPN in my presence, and confirm it is both accurate and complete. documented in this encounter [facility] Work Phone: 07-15-2024 Instructions Katty Alvarez LPN - 07/15/2024 11:15 AM EDT Please bring all medicines, vitamins, and herbal supplements with you when you come to the office. Prescriptions will not be filled unless you are compliant with your follow up appointments or have a follow up appointment scheduled as per instruction of your physician. Refills should be requested at the time of your visit. Fall Prevention Education Given BMI was above normal measurement. Current weight: 122 kg (269 lb) Weight change since last visit (-) denotes wt loss -1 lbs Weight loss needed to achieve BMI 25: 123.7 Lbs Weight loss needed to achieve BMI 30: 94.6 Lbs Provided instructions on dietary changes Provided instructions on exercise. documented in this encounter [facility] Work Phone: 07-11-2024 History of Present illness Narrative HPI Med Refill Additional comments: Lasix--SANDY meyer Last edited by Katie Ritter LPN on 07/11/2024 1:09 PM. Images from the original note were not included. Subjective : Chief Complaint: Luma Ribeiro is an 78 y.o. female here for an annual wellness visit. I have reviewed and reconciled the history and medication list with the patient today. Current Outpatient Medications Medication Sig Dispense Refill ALPRAZolam (Xanax) 0.25 MG tablet Take 1 tablet (0.25 mg) by mouth 2 (two) times a day as needed for anxiety 60 tablet 0 Calcium Carb-Cholecalciferol 600-20 MG-MCG chewable tablet calcium carb 600 mg(1,500 mg)-vit D3 400 unit-minerals chewable tablet Take by oral route. furosemide (Lasix) 20 MG tablet Take 20 mg by mouth Daily gabapentin (Neurontin) 300 MG capsule TAKE 1 CAPSULE BY MOUTH TWICE DAILY 200 capsule 3 meloxicam (Mobic) 15 MG tablet TAKE 1 TABLET BY MOUTH ONCE DAILY 100 tablet 3 metoprolol succinate XL (Toprol-XL) 50 MG 24 hr tablet Take 1 tablet (50 mg) by mouth in the morning and 1 tablet (50 mg) before bedtime. 90 tablet 3 Multiple Vitamin (Multi Vitamin) [...] tablet 0 zolpidem (Ambien) 10 MG tablet Take 1 tablet (10 mg) by mouth at bedtime 90 each 0 No current facility-administered medications for this visit. Review of Systems Constitutional: Negative. HENT: Negative. Eyes: Negative. Respiratory: Positive for cough. Cardiovascular: Negative. Gastrointestinal: Negative. Genitourinary: Negative. Musculoskeletal: Negative. Skin: Negative. Neurological: Negative. Psychiatric/Behavioral: Negative. Endocrine: Negative. List of current healthcare providers: Patient Care Team: Roc Steele MD as PCP - General (Internal Medicine) Roc Steele MD as PCP - ACO Reach Waqas Dugan DO as Referring Physician (Neurology) Raya Holt RN as Clinical Advocate (Family Medicine) Medicare Annual Visit Over the past 2 weeks, how often have you been bothered by any of the following problems? Little interest or pleasure in doing things: Not at all Feeling down, depressed, or hopeless: Not at all Patient Health Questionnaire-2 Score: 0 Jenkins Fall Risk History of Falling, Immediate or Within 3 Months: Yes Secondary Diagnosis: No Ambulatory Aid: Crutches/cane/walker Health Risk Assessment Form Do you need help eating, bathing, using the toilet, dressing, or getting around your home?: No Can you prepare your own meals?: Yes Can you do your own housework without help?: Yes Can you shop for groceries or clothes without help?: Yes Do you exercise for about 20 minutes 3 or more days a week?: Yes How confident are you that you can control and manage most of your health problems?: Very confident Can you mange your money, credit cards and accounts, pay bills and taxes?: Yes Cognitive Screening Three Word Registration: Apple, Watch, Do Clock Drawing: Normal Clock - 2 Three Word Recall: All 3 words correct - 3 Total Score (0-5 Points): 5 Pain Assessment Pain Score: 4 Advance Care Planning Do you have a living will?: Yes Do you have a medical power of patent prosecution attorney?: Yes Who is your medical power of patent prosecution attorney?: Objective : BP 130/80 Pulse 87 Ht 5' 2 Wt 273 lb SpO2 97% BMI 49.93 kg/m No results found. Physical Exam Vitals reviewed. Constitutional: Appearance: Normal appearance. HENT: Head: Normocephalic. Nose: Nose normal. Mouth/Throat: Mouth: Mucous membranes are moist. Pharynx: Oropharynx is clear. Eyes: Conjunctiva/sclera: Conjunctivae normal. Cardiovascular: Rate and Rhythm: Normal rate. Pulmonary: Effort: Pulmonary effort is normal. Breath sounds: Normal breath sounds. Abdominal: General: Bowel sounds are normal. Palpations: Abdomen is soft. Musculoskeletal: General: Tenderness present. Comments: Tenderness rt hip Skin: General: Skin is warm and dry. Neurological: General: No focal deficit present. Mental Status: She is alert and oriented to person, place, and time. Psychiatric: Mood and Affect: Mood normal. Behavior: Behavior normal. Thought Content: Thought content normal. Judgment: Judgment normal. Assessment/Plan : The following health maintenance schedule was reviewed with the patient and provided in printed form in the after visit summary: Health Maintenance Topic Date Due Influenza Vaccine Completed Pneumococcal Vaccine: 65+ Years Completed Colorectal Cancer Screening Discontinued Advance Care Planning Has living will and DPOA 1. Insomnia, unspecified type (Primary) Discussed sleep hygiene with the patient. Encouraged patient to try to go to bed at the same time every night and wake up at the same time each morning. Also encouraged patient to use the bed for sleep and intimacy only. Avoid stimulating activities before bed, i.e. use of electronic devices, watching TV. Avoid exercise within 4 hours of going to bed. Avoid caffeine within 6 hours of going to bed. Keep bedroom cool and dark. Avoid nicotine and alcohol. 2. Obstructive sleep apnea This is a chronic medical condition that is stable since last assessment. No changes in treatment are suggested at this time. 3. Chronic cough Pt started loratidine and her cough has improved. Continue with loratidine. 4. Benign essential hypertension (CMS/HCC) Patient's blood pressure is currently well controlled. Continue with current medications and I will continue to monitor. Goal BP remains less than 130/80. 5. Cardiomegaly This is a chronic medical condition that is stable since last assessment. No changes in treatment are suggested at this time. 6. Exudative age-related macular degeneration of left eye with active choroidal neovascularization (CMS/HCC) This is a chronic medical condition that is stable since last assessment. No changes in treatment are suggested at this time. 7. 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, unspecified laterality This is a chronic medical condition that is stable since last assessment. No changes in treatment are suggested at this time. 8. Paroxysmal supraventricular tachycardia (CMS/HCC) Pt is followed by cardiology for this condition. She is stable. 9. Gastroesophageal reflux disease with esophagitis without hemorrhage GERD discussed with the patient. Pt educated regarding avoiding high acid food triggers such as caffeine products, fruits high in acid, spicy foods, and tomato based products. Advsied to avoid all NSAIDS medications, i.e. Motrin, Aleve. Ok to use Tylenol prn. Encouraged pt to avoid laying down immediately after meals. 10. Lumbosacral spondylosis without myelopathy This is a chronic medical condition that is stable since last assessment. No changes in treatment are suggested at this time. 11. Osteoarthritis of multiple joints, unspecified osteoarthritis type This is a chronic medical condition that is stable since last assessment. No changes in treatment are suggested at this time. 12. Other secondary osteoarthritis of multiple sites This is a chronic medical condition that is stable since last assessment. No changes in treatment are suggested at this time. 13. Osteopenia of both hips This is a chronic medical condition that is stable since last assessment. No changes in treatment are suggested at this time. - DEXA bone density; Future 14. Primary osteoarthritis of right hip This is a chronic medical condition that is stable since last assessment. No changes in treatment are suggested at this time. 15. IGT (impaired glucose tolerance) This is a chronic medical condition that is stable since last assessment. No changes in treatment are suggested at this time. - POCT Glycated hemoglobin, total - Microalbumin / creatinine, urine ratio; Future - Microalbumin / creatinine, urine ratio 16. Morbid obesity due to excess calories (CMS/HCC) Discussed goal of BMI < 30. [...] fluid restriction) with minimal sugar and caffiene. 17. Vitamin D deficiency This is a chronic medical condition that is stable since last assessment. No changes in treatment are suggested at this time. 18. Anxiety Take medication as directed. Verbalizes understanding of the need to be seen in the ER for excessive stress, elevated blood pressure or palpitations. Advised on relaxation methods to decrease anxiety and depression. Pt offers understanding of treatment plan. 19. Decreased estrogen level Await testing - DEXA bone density; Future 20. Difficulty walking Currently on home health for PT 21. Localized edema This is a chronic medical condition that is stable since last assessment. No changes in treatment are suggested at this time. 22. Hyperlipidemia, unspecified hyperlipidemia type (CMS/HCC) This is a chronic medical condition that is stable since last assessment. No changes in treatment are suggested at this time. - Lipid panel; Future - Lipid panel 23. 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 This is a chronic medical condition that is stable since last assessment. No changes in treatment are suggested at this time. 24. Acute low back pain without sciatica, unspecified back pain laterality This is a chronic medical condition that is stable since last assessment. No changes in treatment are suggested at this time. 25. Recurrent falls Currently participating in therapy. 26. Medicare annual wellness visit, subsequent Reviewed all relevant preventative screenings with the patient in detail. Medicare Wellness form completed and will be scanned into patient's chart. All needed testing was ordered. Will continue with yearly Medicare Wellness exams. - Lipid panel; Future - Lipid panel 27. Routine general medical examination at [facility] Reviewed all relevant preventative screenings with the patient in detail. Medicare Wellness form completed and will be scanned into patient's chart. All needed testing was ordered. Will continue with yearly Medicare Wellness exams. No orders of the defined types were placed in this encounter. Electronically signed by Kamila Pride NP on July 11, 2024 documented in this encounter [facility] 07-03-2024 History of Present illness Narrative Images from the original note were not included. Subjective Patient ID: Luma Ribeiro is a 78 y.o. female who presents for a cough. Luma presents today fr a cough, She has had this cough for the last 3 months. She has a home health aid come to the house and she states her lungs where clear. Cough This is a new problem. The current episode started 1 to 4 weeks ago. The problem has been gradually worsening. The problem occurs every few hours. Cough characteristics: bringing up clear phlegm. Associated symptoms include chills. Current Outpatient Medications on File Prior to Visit Medication Sig Dispense Refill ALPRAZolam (Xanax) 0.25 MG tablet Take 1 tablet (0.25 mg) by mouth 2 (two) times a day as needed for anxiety 60 tablet 0 benzonatate (Tessalon) 100 MG capsule TAKE 1 CAPSULE BY MOUTH TWICE DAILY to THREE TIMES DAILY NEEDED FOR COUGH for 5 (FIVE) days Calcium Carb-Cholecalciferol 600-20 MG-MCG chewable tablet calcium carb 600 mg(1,500 mg)-vit D3 400 unit-minerals chewable tablet Take by oral route. furosemide (Lasix) 20 MG tablet Take 20 mg by mouth Daily gabapentin (Neurontin) 300 MG capsule TAKE 1 CAPSULE BY MOUTH TWICE DAILY 200 capsule 3 meloxicam (Mobic) 15 MG tablet TAKE 1 TABLET BY MOUTH ONCE DAILY 100 tablet 3 metoprolol succinate XL (Toprol-XL) 50 MG 24 hr tablet Take 1 tablet (50 mg) by mouth in the morning and 1 tablet (50 mg) before bedtime. 90 tablet 3 Multiple Vitamin (Multi Vitamin) [...] INJECTION x7 NERVE BLOCK Left 03/26/2019 T12-L3 [place] TOTAL HIP ARTHROPLASTY Left [place] (01-29-2020 to 01-30-2020) RADIOFREQUENCY ABLATION Left 06/25/2019 L2-L5 REFRACTIVE SURGERY 2015 SHOULDER SURGERY left TOTAL KNEE ARTHROPLASTY Bilateral left 2002 right 2002 US ASPIRATION INJECTION INTERMEDIATE JOINT 12/16/2020 US ASPIRATION INJECTION INTERMEDIATE JOINT 12/16/2020 Visit Vitals Smoking Status Never Review of Systems Constitutional: Positive for chills. Respiratory: Positive for cough. Objective Physical Exam Vitals reviewed. Constitutional: Appearance: Normal appearance. HENT: Head: Normocephalic. Nose: Nose normal. Mouth/Throat: Mouth: Mucous membranes are moist. Pharynx: Oropharynx is clear. Eyes: Conjunctiva/sclera: Conjunctivae normal. Cardiovascular: Rate and Rhythm: Normal rate and regular rhythm. Pulmonary: Effort: Pulmonary effort is normal. Breath sounds: Normal breath sounds. Comments: Dry harsh cough, has PND Abdominal: General: Bowel sounds are normal. Palpations: Abdomen is soft. Skin: General: Skin is warm and dry. Neurological: General: No focal deficit present. Mental Status: She is alert and oriented to person, place, and time. Psychiatric: Mood and Affect: Mood normal. Behavior: Behavior normal. Thought Content: Thought content normal. Assessment/Plan Diagnoses and all orders for this visit: Paroxysmal supraventricular tachycardia (CMS/HCC) - Ambulatory referral to Cardiology; Future Awaiting cardiology appointment. She did not follow up with cardiology as she was supposed to when she got out of the hospital. New referral sent as she wants to go to the deputy court clerk that her goes to. Primary insomnia - zolpidem (Ambien) 10 MG tablet; Take 1 tablet (10 mg) by mouth at bedtime Discussed sleep hygiene with the patient. Encouraged patient to try to go to bed at the same time every night and wake up at the same time each morning. Also encouraged patient to use the bed for sleep and intimacy only. Avoid stimulating activities before bed, i.e. use of electronic devices, watching TV. Avoid exercise within 4 hours of going to bed. Avoid caffeine within 6 hours of going to bed. Keep bedroom cool and dark. Avoid nicotine and alcohol. Acute congestive heart failure, unspecified heart failure type ([facility]/HCC) - Ambulatory referral to Cardiology; Future Awaiting cardiology appointment. She did not follow up with cardiology as she was supposed to when she got out of the hospital. New referral sent as she wants to go to the deputy court clerk that her goes to. Stage 3b chronic kidney disease (HCC) (CMS/[facility]) - Comprehensive metabolic panel; Future - Magnesium; Future This is a chronic medical condition that is stable since last assessment. No changes in treatment are suggested at this time. Weakness - Magnesium; Future Await lab Other fatigue - Magnesium; Future Await lab Pain of right hip - XR hip right 2 or 3 views; Future Pt has had 9 falls and they have all been on her right hip. She has a history of hip replacement on the right. Will check an xray as she is having pain. Fall, initial encounter - XR hip right 2 or 3 views; Future Discussed various causes of falls, medications, blood pressure, eye issues, or physical hazards. Encouraged pt to wear sensible footwear, non-slip treads. Avoid slippers, flip flops, or walking in just socks. Discussed importance of removal of hazards in the home, keeping pathways clear where she routinely walks. Encouraged nonslip mat in shower. Secure any loose rugs with double-sided tape, or remove rugs completely. Make sure any cords are covered or moved away from where patient walks. Encouraged patient to make sure that the areas where she walks are well lit and that light sources, lamps etc, are close to the room's entrances. Discussed importance of handrails, grab bars, and other assistive devices. Discussed the importance of staying active in a safe way, i.e. walks, water work outs, or [employer]. No follow-ups on file. documented in this encounter [facility] 06-11-2024 History of Present illness Narrative Images from the original note were not included. Subjective Patient ID: Luma Ribeiro is a 78 y.o. female who presents for a F/U form an ER visit. Luma presents today for a F/U from an ER visit on 06/09 for a high heart rate. She was having issue with her cough and a high heart rate of 130, this lasted for 3 days and she called the concert or lecture hall manager nurse and they advised her to go to the ER. To follow up with cardiology. Has a diagnosis of SVT. She is on Metoprolol Succinate BID. HR 98 when she left the ER. She is bringing up copious amounts of clear secretions and her weight is up 9 pounds. Will check a BNP. Sinusitis This is a new problem. The current episode started 1 to 4 weeks ago. The problem has been gradually worsening since onset. There has been no fever. Associated symptoms include coughing, headaches and sinus pressure. Past treatments include nothing. The treatment provided no relief. Current Outpatient Medications on File Prior to Visit Medication Sig Dispense Refill ALPRAZolam (Xanax) 0.25 MG tablet Take 1 tablet (0.25 mg) by mouth 2 (two) times a day as needed for anxiety 60 tablet 0 benzonatate (Tessalon) 100 MG capsule TAKE 1 CAPSULE BY MOUTH TWICE DAILY to THREE TIMES DAILY NEEDED FOR COUGH for 5 (FIVE) days Calcium Carb-Cholecalciferol 600-20 MG-MCG chewable tablet calcium carb 600 mg(1,500 mg)-vit D3 400 unit-minerals chewable tablet Take by oral route. furosemide (Lasix) 20 MG tablet Take 20 mg by mouth Daily gabapentin (Neurontin) 300 MG capsule TAKE 1 CAPSULE BY MOUTH TWICE DAILY 200 capsule 3 meloxicam (Mobic) 15 MG tablet TAKE 1 TABLET BY MOUTH ONCE DAILY 100 tablet 3 metoprolol succinate XL (Toprol-XL) 50 MG 24 hr tablet Take 1 tablet (50 mg) by mouth in the morning and 1 tablet (50 mg) before bedtime. 90 tablet 3 Multiple Vitamin (Multi Vitamin) [...] INJECTION x7 NERVE BLOCK Left 03/26/2019 T12-L3 [place] TOTAL HIP ARTHROPLASTY Left [place] (01-29-2020 to 01-30-2020) RADIOFREQUENCY ABLATION Left 06/25/2019 L2-L5 REFRACTIVE SURGERY 2015 SHOULDER SURGERY left TOTAL KNEE ARTHROPLASTY Bilateral left 2002 right 2002 US ASPIRATION INJECTION INTERMEDIATE JOINT 12/16/2020 US ASPIRATION INJECTION INTERMEDIATE JOINT 12/16/2020 Visit Vitals Smoking Status Never Review of Systems HENT: Positive for sinus pressure. Respiratory: Positive for cough. Neurological: Positive for headaches. Objective Physical Exam Vitals reviewed. Constitutional: Appearance: Normal appearance. HENT: Head: Normocephalic. Right Ear: A middle ear effusion is present. Mouth/Throat: Mouth: Mucous membranes are moist. Pharynx: Oropharynx is clear. Cardiovascular: Rate and Rhythm: Normal rate and regular rhythm. Pulmonary: Effort: Pulmonary effort is normal. Breath sounds: Normal breath sounds. Abdominal: General: Bowel sounds are normal. Palpations: Abdomen is soft. Musculoskeletal: General: Swelling present. Skin: General: Skin is warm and dry. Neurological: General: No focal deficit present. Mental Status: She is alert and oriented to person, place, and time. Psychiatric: Mood and Affect: Mood normal. Behavior: Behavior normal. Assessment/Plan Diagnoses and all orders for this visit: Palpitations Pt is to follow up with Dr. Chavez in [facility]. Await his recommendations. She continue on the Metoprolol Acute cough - guaiFENesin-codeine (guaiFENesin AC) 100-10 MG/5ML syrup; Take 5 mL by mouth 4 (four) times a day as needed for cough for up to 14 days May use cough drops, warm tea with honey and cough syrup for cough. Acute congestive heart failure, unspecified heart failure type (CMS/HCC) - B-type natriuretic peptide; Future This is a chronic medical condition. No changes in treatment are suggested at this time. Pt has had a weight gain and is coughing clear so we will check a BNP Acute non-recurrent pansinusitis - cefdinir (Omnicef) 300 MG capsule; Take [...] follow-ups on file. documented in this encounter [facility] 05-23-2024 History of Present illness Narrative Patient: Luma Ribeiro : 1945 [...] localized. unspecified site Osteopenia Paroxysmal supraventricular tachycardia ([facility]) Medications: Current Outpatient Medications: ALPRAZolam (Xanax) 0.25 [...] min Stress: No Stress Concern Present (11/25/2022) [place] [employer] - Occupational Stress Questionnaire Feeling of Stress : Only a little Social Connections: Moderately Isolated (11/25/2022) Social Connection and Isolation Panel [NHANES] Frequency of Communication with Friends and Family: More than three times a week Frequency of Social Gatherings with Friends and Family: Once a week Attends Christianity Services: Never Active Member of Clubs or [...] and thickness digits 1 through 9 Alex Alfredo DPM documented in this encounter [facility] 05-22-2024 History of Present illness Narrative Images from the original note [...] INJECTION x7 NERVE BLOCK Left 03/26/2019 T12-L3 [place] TOTAL HIP ARTHROPLASTY Left [place] (01-29-2020 to 01-30-2020) RADIOFREQUENCY ABLATION Left 06/25/2019 [...] follow-ups on file. documented in this encounter [facility] 05-15-2024 History of Present illness Narrative Images from the original note were not included. Subjective Patient ID: Luma Ribeiro is a 78 y.o. female who presents for A F/U FOR PNEUMONIA, CHF Luma presents today for F/U for pneumonia and CHF. Was admitted to [facility] on 05-12-24.She is feeling weak and SOB still. Home health has not started. Pt would benefit from Nursing, PT/OT, and aide. PT was diagnosed with generalized weakness, CHF, And pneumonia. She continues on Doxycycline. The hospital discharge pt with an order for Lasix prn. Pt educated on when to take a prn lasix. She verbalized understanding. The hospital set up [facility] but we will set pt up with [facility] as they have a contract with [facility]. She is home bound due to her [...] INJECTION x7 NERVE BLOCK Left 03/26/2019 T12-L3 [place] TOTAL HIP ARTHROPLASTY Left [place] (01-29-2020 to 01-30-2020) RADIOFREQUENCY ABLATION Left 06/25/2019 [...] follow-ups on file. documented in this encounter [facility] 05-07-2024 History of Present illness Narrative Images from the original note were not included. Subjective Patient ID: Luma iRbeiro is a 78 y.o. female who presents [...] TWICE DAILY 200 capsule 3 [] HYDROcodone-acetaminophen (Bancroft) 5-325 MG tablet Take 1 tablet by [...] INJECTION x7 NERVE BLOCK Left 03/26/2019 T12-L3 [place] TOTAL HIP ARTHROPLASTY Left [place] (01-29-2020 to 01-30-2020) RADIOFREQUENCY ABLATION Left 06/25/2019 [...] follow-ups on file. documented in this encounter [facility] 04-16-2024 Telephone encounter Note OARRS reviewed, Rx sent into patient's pharmacy. [facility] 04-16-2024 Miscellaneous Notes OARRS reviewed, Rx sent into patient's pharmacy. documented in this encounter [facility] 04-03-2024 History of Present illness Narrative Images from the original note [...] breathing, coughing, lifting and movement. Treatments tried: Bancroft, cough syrup, muscle relaxer. The treatment provided [...] TWICE DAILY 200 capsule 3 [] HYDROcodone-acetaminophen (B[place]roft) 5-325 MG tablet Take 1 tablet by [...] INJECTION x7 NERVE BLOCK Left 03/26/2019 T12-L3 [place] TOTAL HIP ARTHROPLASTY Left [place] (01-29-2020 to 01-30-2020) RADIOFREQUENCY ABLATION Left 06/25/2019 [...] breathing. Lumbosacral spondylosis without myelopathy - HYDROcodone-acetaminophen (Bancroft) 5-325 MG tablet; Take 1 tablet by [...] follow-ups on file. documented in this encounter [facility] 03-07-2024 Note Carpal tunnel syndro me, left, severe. Progressed substantially when compared to EDX evaluation in 2021. C8 radiculopathy, left, moderate. Progressed when compared to EDX evaluation in 2021 [facility] 03-07-2024 Note Carpal tunnel syndro me, left, severe. Progressed substantially when compared to EDX evaluation in 2021. C8 radiculopathy, left, moderate. Progressed when compared to EDX evaluation in 2021 [facility] 03-07-2024 History of Present illness Narrative Images from the original note were not included. Reason for Appointment: EMG Patient: Luma Ribeiro : 1945 EMG Computer: [id number] Referring Physician: Kamila Pride CNP EMG: LUE slide developer: Jimmy Gibson RT(R) Office Location: [facility] Reason for EMG: c/o numbness/tingling in left hand/forearm especially in 2nd & 3rd digits, weakness in left hand. No hx of DM. Not on blood thinners. Comments: Procedure was explained to the patient who expressed understanding. Patient appeared to have tolerated the test well despite some discomfort due to the nature of the test. documented in this encounter [facility] 03-05-2024 History of Present illness Narrative Images from the original note [...] inciting event Pt feels she has decreased bottom scrubber strength in left hand Hypertension This is [...] MOUTH TWICE DAILY 200 capsule 3 HYDROcodone-acetaminophen (Bancroft) 5-325 MG tablet Take 1 tablet by [...] at bedtime 90 tablet 1 [DISCONTINUED] HYDROcodone-acetaminophen (Bancroft) 5-325 MG tablet Take 1 tablet by [...] SURGERY 2018 CATARACT EXTRACTION Bilateral 2014 COLONOSCOPY 2013 HEART CATH 2016 IR INJECTION NERVE BLOCK 2018 and 2019 LUMBAR EPIDURAL INJECTION 2017 to 2021 LUMBAR TRANSFORAMINAL EPIDURAL STEROID INJECTION x7 NERVE BLOCK Left 03/26/2019 T12-L3 [place] TOTAL HIP ARTHROPLASTY Left [place] (01-29-2020 to 01-30-2020) RADIOFREQUENCY ABLATION Left 06/25/2019 [...] need - Influenza, high-dose seasonal, quadrivalent, PF ([id number]) (Fluzone High Dose Quad North 0.7mL dose) [...] follow-ups on file. documented in this encounter [facility] 02-29-2024 Telephone encounter Note OARRS reviewed, Rx sent into patient's pharmacy. [facility] 02-29-2024 Miscellaneous Notes OARRS reviewed, Rx sent into patient's pharmacy. Hydrocodone 325 DDM IN [place]STINGS She had an appt today for a med follow up with kamila but had to change it due to her not being in. She said she has about 6 pills left. She did reschedule her med follow up for next Monday. documented in this encounter [facility] 02-29-2024 Telephone encounter Note Hydrocodone 325 DDM IN HASTINGS She had an appt today for a med follow up with kamila but had to change it due to her not being in. She said she has about 6 pills left. She did reschedule her med follow up for next Monday. [facility] 01-29-2024 Telephone encounter Note Amlodipine sent [facility] 01-29-2024 Miscellaneous Notes Amlodipine sent documented in this encounter [facility] 06-15-2023 History of Present illness Narrative Patient: Luma Ribeiro : 1945 [...] Diagnosis Date Cardiomegaly Diverticulosis 2013 Edema Glaucoma ([facility]) Heart disease, unspecified History of lumbar surgery multiple times HTN (hypertension) ([facility]) Hyperlipidemia ([facility]) Insomnia Lumbago Lumbosacral spondylosis without myelopathy [...] min Stress: No Stress Concern Present (11/25/2022) [place] [employer] - Occupational Stress Questionnaire Feeling of Stress : Only a little Social Connections: Moderately Isolated (11/25/2022) Social Connection and Isolation Panel [NHANES] Frequency of Communication with Friends and Family: More than three times a week Frequency of Social Gatherings with Friends and Family: Once a week Attends Christianity Services: Never Active Member of Clubs or [...] Patient may continue with conservative treatments including [id number] anti-inflammatories and other treatments suggested today. Patient may want to be scheduled for surgical intervention in the near future. Patient have the right hallux subungual exostectomy with the lateral left hallux partial permanent nail avulsion in the near future Alex Alfredo DPM documented in this encounter [facility] 06-01-2023 History of Present illness Narrative Patient: Luma Ribeiro : 1945 [...] Diagnosis Date Cardiomegaly Diverticulosis 2013 Edema Glaucoma ([facility]) Heart disease, unspecified History of lumbar surgery multiple times HTN (hypertension) ([facility]) Hyperlipidemia (CMS/[facility]) Insomnia Lumbago Lumbosacral spondylosis without myelopathy [...] min Stress: No Stress Concern Present (11/25/2022) [place] [employer] - Occupational Stress Questionnaire Feeling of Stress : Only a little Social Connections: Moderately Isolated (11/25/2022) Social Connection and Isolation Panel [NHANES] Frequency of Communication with Friends and Family: More than three times a week Frequency of Social Gatherings with Friends and Family: Once a week Attends Christianity Services: Never Active Member of Clubs or [...] Patient may continue with conservative treatments including [id number] anti-inflammatories and other treatments suggested today. Patient [...] have done in the near future Alex Alfredo DPM documented in this encounter [facility] [...] (CMS/HCC) Body mass index (BMI) 45.0-49.9, adult ([facility]/HCC) [facility] Diagnosis Edema, unspecified type- Primary Pulmonary fibrosis, unspecified (CMS/HCC) Acute congestive heart failure, unspecified heart failure type (CMS/HCC) Generalized weakness Pneumonia of both lungs due to infectious organism, unspecified part of lung documented in this encounter [facility]* Diagnosis Stage 3b chronic kidney disease (HCC) (CMS/HCC)- Primary Benign essential hypertension (CMS/HCC) Essential hypertension, benign Hypomagnesemia Disorders of magnesium metabolism Pneumonia of both lungs due to infectious organism, unspecified part of lung Pain due to onychomycosis of toenails of both feet- Primary documented in this encounter [facility]* Diagnosis Pain due to onychomycosis of toenails of both feet- Primary documented in this encounter [facility]* Diagnosis Palpitations- Primary Acute cough Acute congestive heart failure, unspecified heart failure type (CMS/[facility]) Acute non-recurrent pansinusitis documented in this encounter [facility]* Diagnosis Paroxysmal supraventricular tachycardia ([facility])- Primary Paroxysmal supraventricular tachycardia Primary insomnia Persistent disorder of initiating or maintaining sleep Acute congestive heart failure, unspecified heart failure type (CMS/HCC) Stage 3b chronic kidney disease (HCC) ([facility]) Weakness Other malaise and fatigue Other fatigue Pain of right hip Fall, initial encounter documented in this encounter [facility] Healthcare[facility]* Diagnosis Insomnia, unspecified type- Primary Obstructive sleep apnea Obstructive sleep apnea (adult) (pediatric) Chronic cough Cough Benign essential hypertension (CMS/HCC) Essential hypertension, benign Cardiomegaly Exudative age-related macular degeneration of left eye with active choroidal neovascularization ([facility]) 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, unspecified laterality Paroxysmal supraventricular tachycardia ([facility]/HCC) Paroxysmal supraventricular tachycardia Gastroesophageal reflux disease with esophagitis without hemorrhage Lumbosacral spondylosis without myelopathy Osteoarthritis of multiple joints, unspecified osteoarthritis type Other secondary osteoarthritis of multiple sites Osteopenia of both hips Primary osteoarthritis of right hip IGT (impaired glucose tolerance) Impaired glucose tolerance test Morbid obesity due to excess calories (CMS/[facility]) Vitamin D deficiency Anxiety Anxiety state, unspecified Decreased estrogen level Difficulty walking Difficulty in walking Localized edema Edema Hyperlipidemia, unspecified hyperlipidemia type (CMS/HCC) 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 Acute low back pain without sciatica, unspecified back pain laterality Recurrent falls Medicare annual wellness visit, subsequent Routine general medical examination at health care facility Routine general medical examination at a health care facility Chronic congestive heart failure, unspecified heart failure type (CMS/HCC) documented in this encounter [facility]* Diagnosis Encounter to establish care with new doctor Paroxysmal supraventricular tachycardia ([facility]) Paroxysmal supraventricular tachycardia Abnormal EKG Nonspecific abnormal electrocardiogram (ECG) (EKG) Lightheadedness Dizziness and giddiness Chest discomfort Other chest pain Palpitations Primary hypertension Unspecified essential hypertension Stenosis of carotid artery, unspecified laterality Mixed hyperlipidemia Stage 3a chronic kidney disease (Multi) Gastroesophageal reflux disease without esophagitis Esophageal reflux At high risk for falls Uses roller walker Severe obesity (BMI >= 40) (Multi) Never smoked cigarettes documented in this encounter [facility] Work Phone: Evaluation note* Diagnosis Pain due to onychomycosis of toenails of both feet- Primary documented in this encounter [facility] note* Diagnosis SOB (shortness of breath)- Primary Shortness of breath Chronic cough Cough Lumbosacral spondylosis without myelopathy Seasonal allergic rhinitis, unspecified trigger Age-related osteoporosis without current pathological fracture ([facility]) documented in this encounter [facility]* Diagnosis Age-related osteoporosis without current pathological fracture ([facility])- Primary Osteopenia of both hips Chronic cough Cough documented in this encounter [facility]* Diagnosis Lightheadedness Dizziness and giddiness Chest discomfort Other chest pain Palpitations Mixed hyperlipidemia documented in this encounter [facility] Work Phone: Evaluation note* Diagnosis Paroxysmal supraventricular tachycardia Abnormal EKG Nonspecific abnormal electrocardiogram (ECG) (EKG) Palpitations documented in this encounter [facility] Work Phone: History of Present illness NarrativeLuma is a 75-year-old female patient of Dr. Bird who is here for ultrasound-guided right intraarticular shoulder injection. She has a history of pain and discomfort. She was seen and evaluated and referred to me for first lifetime intraarticular shoulder injection, which the patient accepts[facility] Work Phone: History of Present illness Narrative* [...] normal pronation supination wrist flexion extension and bottom scrubber strength. Distal pulses and sensation are intact. Limited forward flexion to about 25 degrees lateral abduction to about 15 unable to perform any external rotation but internal he can get to the small of her back. Herexam does not allow for much of a true Neer's Shelby or Comfort's test. * Diagnostics: See dictated report from today, previous outside CT scan report of the humerus reviewed, and is available in the [facility] chart. * Procedure: None * Assessment: Chronic [...] the patient's CT scan report reviewed in [facility] Other than the anterior medial dislocation [...] related to the Dragon software * Taniya Al MD * Office: * . -[place] [facility] Work Phone: History of Present illness Narrative* Alex Alfredo, SOPHY - 02/22/2024 2:50 PM EDT Patient: Luma [...] localized. unspecified site Osteopenia Paroxysmal supraventricular tachycardia ([facility]) Medications: Current Outpatient Medications: ALPRAZolam (Xanax) 0.25 [...] min Stress: No Stress Concern Present (11/25/2022) [place] [employer] - Occupational Stress Questionnaire Feeling of Stress : Only a little Social Connections: Moderately Isolated (11/25/2022) Social Connection and Isolation Panel [NHANES] Frequency of Communication with Friends and Family: More than three times a week Frequency of Social Gatherings with Friends and Family: Once a week Attends Christianity Services: Never Active Member of Clubs or [...] and thickness digits 1 through 9 Alex Alfredo DPM [facility] Narrative* Other Medical (Routine) - Closed Specialty Diagnoses / Procedures Referred By Contac t Referred To Contact Neurology Diagnoses Numbness of hand Procedures [place] OFFICE/OUTPATIENT [facility] 60 MINUTES Kamila Pride NP [address] [facility] [address] [place] [address] Phone: tel: fax: Waqas Dugan, [address] [facility] [address] [place] [address] Phone: tel: fax: Referral ID Status Reason Start Date Expiration Date V isits Requested Visits Authorized [id number] Closed Perform Procedure 03/05/2024 09/01/2024 1 1 [facility]* Cardiac Stress Testing (Routine) - Authorized Specialty Diagnoses / Procedures Referred By Contac t Referred To Contact Radiology Diagnoses Lightheadedness Chest discomfort Palpitations Mixed hyperlipidemia Procedures Nuclear Stress Test CHG MYOCARDIAL SPECT MULTIPLE STUDIES Amber Hawley MD [address] [facility] [address] [place] [address] Phone: tel: fax: Referral ID Status Reason Start Date Expiration Date V isits Requested Visits Authorized [id number] Authorized 07/15/2024 07/15/2025 5 5 [facility] Work Phone: Reason for visit Narrative* Cardiac Stress Testing (Routine) - Authorized Specialty Diagnoses / Procedures Referred By Contac t Referred To Contact Radiology Diagnoses Lightheadedness Chest discomfort Palpitations Mixed hyperlipidemia Procedures Nuclear Stress Test CHG MYOCARDIAL SPECT MULTIPLE STUDIES Amber Hawley MD [address] [address] Phone: tel: fax: Referral ID Status Reason Start Date Expiration Date V isits Requested Visits Authorized [id number] Authorized 07/15/2024 07/15/2025 5 5 [facility] Work Phone: Reason for visit Narrative* CV Imaging (Routine) - Authorized Specialty Diagnoses / Procedures Referred By Contadan t Referred To Contact Cardiology Diagnoses Paroxysmal supraventricular tachycardia Abnormal EKG Palpitations Procedures Transthoracic Echo Complete [place] ECHO TTHRC R-T 2D W/WOM-MODE COMPL SPEC&COLR D Amber Hawley MD [address] [address] Phone: tel: fax: Referral ID Status Reason Start Date Expiration Date Visits Requested Visits Authorized [id number] Authorized Perform Procedure 07/15/2024 07/15/2025 1 1 [facility] Work Phone: Chief Complaint * New problem * Right shoulder pain MP Refer : RT shoulder ultra sound guided injection* Right shoulder pain, here for injection. 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 DATE CREATED AUTHOR AUTHOR'S ORGANIZ ATION 07/28/2024 [facility] DATE CREATED AUTHOR AUTHOR'S ORGANIZ ATION 09/25/2024 [facility] DATE CREATED AUTHOR AUTHOR'S ORGANIZ ATION 09/25/2024 [facility] DATE CREATED AUTHOR AUTHOR'S ORGANIZ ATION 09/27/2024 [facility] DATE CREATED AUTHOR AUTHOR'S ORGANIZ ATION 10/13/2024 [facility] [facility] EPIC Reason for Visit [...] Comments Toenail Care Non dm nail care Reason Comments Medicare Annual Wellness Visit Subsequen t Med Refill Lasix--DM [place] Reason Comments Follow-up New Patient for Supr aventricular tachycardia/Congestive heart failure. Specialty Diagnoses / Procedures Referred By Contac t Referred To Contact Diagnoses Encounter to establish care with new doctor Procedures ECG 12 Lead Amber Hawley MD [address] [facility] [address] [place] [address] Phone: tel: fax: Referral ID Status Reason Start Date Expiration Date V isits Requested Visits Authorized [id number] Authorized 07/15/2024 07/15/2025 1 1 Reason Comments prolia injection Here for injection b illed and shipped from [facility] Care Teams (unrecognized sec tion and content) Network Support Specialist Relationship Specialty Start Date End Date Roc Steele MD [address] [place] [address] [address] [place] [address] PCP - ACO Reach 09/22/22 Roc Steele MD [address] [place] [address] PCP - General Internal Medicine 09/28/22 Network Support Specialist Relationship Specialty Start Date End Date Roc Steele MD [address] [place] [address] PCP - ACO Reach 09/22/22 Roc Steele MD [address] [place] [address] PCP - General Internal Medicine 09/28/22 Network Support Specialist Relationship Specialty Start Date End Date Roc Steele MD [address] [place] [address] PCP - ACO Reach 09/22/22 Roc Steele MD [address] [place] [address] PCP - General Internal Medicine 09/28/22 Network Support Specialist Relationship Specialty Start Date End Date Roc Steele MD [address] [place] [address] PCP - General Internal Medicine 09/28/22 Roc Steele MD [address] [place] [address] PCP - ACO Reach 08/30/23 Network Support Specialist Relationship Specialty Start Date End Date Roc Steele MD [address] [place] [address] PCP - General Internal Medicine 09/28/22 Roc Steele MD [address] [place] [address] PCP - ACO Reach 08/30/23 Network Support Specialist Relationship Specialty Start Date End Date Roc Steele MD [address] [place] [address] PCP - General Internal Medicine 09/28/22 Roc Steele MD [address] [place] [address] PCP - ACO Reach 08/30/23 Network Support Specialist Relationship Specialty Start Date End Date Roc Steele MD [address] [place] [address] PCP - General Internal Medicine 09/28/22 Roc Steele MD [address] [place] [address] PCP - ACO Reach 08/30/23 Network Support Specialist Relationship Specialty Start Date End Date Roc Steele MD [address] [place] [address] PCP - General Internal Medicine 09/28/22 Roc Steele MD [address] [place] [address] PCP - ACO Reach 08/30/23 Network Support Specialist Relationship Specialty Start Date End Date Roc Steele MD [address] [place] [address] PCP - General Internal Medicine 09/28/22 Roc Steele MD [address] [place] [address] PCP - ACO Reach 08/30/23 Network Support Specialist Relationship Specialty Start Date End Date Roc Steele MD [address] [place] [address] PCP - General Internal Medicine 09/28/22 Roc Steele MD [address] [place] [address] PCP - ACO Reach 08/30/23 Waqas Dugan DO [address] [place] [address] Referring Physician Neurology 03/07/24 Network Support Specialist Relationship Specialty Start Date End Date Roc Steele MD [address] [place] [address] PCP - General Internal Medicine 09/28/22 Roc Steele MD [address] [place] [address] PCP - ACO Reach 08/30/23 Waqas Dugan DO [address] [place] [address] Referring Physician Neurology 03/07/24 Network Support Specialist Relationship Specialty Start Date End Date Roc Steele MD [address] [place] [address] PCP - General Internal Medicine 09/28/22 Roc Steele MD [address] [place] [address] PCP - ACO Reach 08/30/23 Waqas Dugan DO [address] [place] [address] Referring Physician Neurology 03/07/24 Network Support Specialist Relationship Specialty Start Date End Date Roc Steele MD [address] [place] [address] PCP - General Internal Medicine 09/28/22 Roc Steele MD [address] [place] [address] PCP - ACO Reach 08/30/23 Waqas Dugan DO [address] [place] [address] Referring Physician Neurology 03/07/24 Network Support Specialist Relationship Specialty Start Date End Date Roc Steele MD [address] [place] [address] PCP - General Internal Medicine 09/28/22 Roc Steele MD [address] [place] [address] PCP - ACO Reach 08/30/23 Waqas Dugan DO [address] [place] [address] Referring Physician Neurology 03/07/24 Network Support Specialist Relationship Specialty Start Date End Date Roc Steele MD [address] [place] [address] PCP - General Internal Medicine 09/28/22 Roc Steele MD [address] [place] [address] PCP - ACO Reach 08/30/23 Network Support Specialist Relationship Specialty Start Date End Date Roc Steele MD [address] [place] [address] PCP - General Internal Medicine 09/28/22 Roc Steele MD [address] [place] [address] PCP - ACO Reach 08/30/23 Waqas Dugan DO [address] [place] [address] Referring Physician Neurology 03/07/24 Network Support Specialist Relationship Specialty Start Date End Date Roc Steele MD [address] [place] [address] PCP - General Internal Medicine 09/28/22 Roc Steele MD [address] [place] [address] PCP - ACO Reach 08/30/23 Waqas Dugan DO [address] [place] [address] Referring Physician Neurology 03/07/24 Network Support Specialist Relationship Specialty Start Date End Date Roc Steele MD [address] [place] [address] PCP - General Internal Medicine 09/28/22 Roc Steele MD [address] [place] [address] PCP - ACO Reach 08/30/23 Waqas Dugan DO [address] [place] [address] Referring Physician Neurology 03/07/24 Network Support Specialist Relationship Specialty Start Date End Date Roc Steele MD [address] [place] [address] PCP - General Internal Medicine 09/28/22 Roc Steele MD [address] [place] [address] PCP - ACO Reach 08/30/23 Waqas Dugan DO [address] [place] [address], [place] [address] Referring Physician Neurology 03/07/24 Network Support Specialist Relationship Specialty Start Date End Date Roc Steele MD [address] [place] [address] PCP - General Internal Medicine 09/28/22 Roc Steele MD [address] [place] [address] PCP - ACO Reach 08/30/23 Waqas Dugan DO [address] [place] [address] Referring Physician Neurology 03/07/24 Network Support Specialist Relationship Specialty Start Date End Date Roc Steele MD [address] [place] [address] PCP - General Internal Medicine 09/28/22 Roc Steele MD [address] [place] [address] PCP - ACO Reach 08/30/23 Waqas Dugan DO [address] [place] [address] Referring Physician Neurology 03/07/24 Network Support Specialist Relationship Specialty Start Date End Date Roc Steele MD [address] [place] [address] PCP - General Internal Medicine 09/28/22 Roc Steele MD [address] [place] [address] PCP - ACO Reach 08/30/23 Waqas Dugan DO [address] [place] [address] Referring Physician Neurology 03/07/24 Network Support Specialist Relationship Specialty Start Date End Date Roc Steele MD [address] [place] [address] PCP - General Internal Medicine 09/28/22 Roc Steele MD [address] [place] [address] PCP - ACO Reach 08/30/23 Waqas Dugan DO [address] [place] [address] Referring Physician Neurology 03/07/24 Raya Holt, RN Clinical Advocate Family Medicine 06/07/24 Network Support Specialist Relationship Specialty Start Date End Date Roc Steele MD [address] [place] [address] PCP - General Internal Medicine 09/28/22 Roc Steele MD [address] [place] [address] PCP - ACO Reach 08/30/23 Waqas Dugan DO [address] [place] [address] Referring Physician Neurology 03/07/24 Raya Holt, RN Clinical Advocate Family Medicine 06/07/24 Network Support Specialist Relationship Specialty Start Date End Date Roc Steele MD [address] [place] [address] PCP - General Internal Medicine 09/28/22 Roc Steele MD [address] [place] [address] PCP - ACO Reach 08/30/23 Waqas Dugan DO [address] [place] [address] Referring Physician Neurology 03/07/24 Raya Holt, RN Clinical Advocate Family Medicine 06/07/24 Network Support Specialist Relationship Specialty Start Date End Date Roc Steele MD [address] [place] [address] PCP - General Internal Medicine 09/28/22 Roc Steele MD [address] [place] [address] PCP - ACO Reach 08/30/23 Waqas Dugan DO [address] [address] Referring Physician Neurology 03/07/24 Raya Holt, RN Clinical Advocate Family Medicine 06/07/24 Network Support Specialist Relationship Specialty Start Date End Date Roc Steele MD [address] [place] [address] PCP - General Internal Medicine 09/28/22 Roc Steele MD [address] [place] [address] PCP - ACO Reach 08/30/23 Waqas Dugan DO [address] [place] [address] Referring Physician Neurology 03/07/24 Raya Holt, RN Clinical Advocate Family Medicine 06/07/24 Network Support Specialist Relationship Specialty Start Date End Date Roc Steele MD [address] [place] [address] PCP - General 10/04/22 Network Support Specialist Relationship Specialty Start Date End Date Roc Steele MD [address] [place] [address] PCP - General Internal Medicine 09/28/22 Roc Steele MD [address] [place] [address] PCP - ACO Reach 08/30/23 Waqas Dugan DO [address] [place] [address] Referring Physician Neurology 03/07/24 Gladis Laird, [facility] 07/19/24 Network Support Specialist Relationship Specialty Start Date End Date Roc Steele MD [address] [place] [address] PCP - General Internal Medicine 09/28/22 Roc Steele MD [address] [place] [address] PCP - ACO Reach 08/30/23 Waqas Dugan DO [address] [place] [address] Referring Physician Neurology 03/07/24 Gladis Laird, [facility] 07/19/24 Network Support Specialist Relationship Specialty Start Date End Date Roc Steele MD [address] [place] [address] PCP - General Internal Medicine 09/28/22 Roc Steele MD [address] [place] [address] PCP - ACO Reach 08/30/23 Waqas Dugan DO [address] [place] [address] Referring Physician Neurology 03/07/24 Gladis Laird, [facility] 07/19/24 Network Support Specialist Relationship Specialty Start Date End Date Roc Steele MD [address] [place] [address] PCP - General Internal Medicine 09/28/22 Roc Steele MD [address] [place] [address] PCP - ACO Reach 08/30/23 Waqas Dugan DO [address] [place] [address] Referring Physician Neurology 03/07/24 Gladis Laird LPN 07/19/24 Network Support Specialist Relationship Specialty Start Date End Date Roc Steele MD [address] [place] [address] PCP - General Internal Medicine 09/28/22 Roc Steele MD [address] [facility] 110 [place] [address] PCP - ACO Reach 08/30/23 Waqas Dugan DO [address] [place] [address] Referring Physician Neurology 03/07/24 Gladis Laird EMERGENCY COMMUNICATIONS OPERATOR 07/19/24 Network Support Specialist Relationship Specialty Start Date End Date Roc Steele MD [address] [facility] [address] [place] [address] PCP - General 10/04/22 Network Support Specialist Relationship Specialty Start Date End Date Roc Steele MD [address] [facility] [address] [place] [address] PCP - General 10/04/22 Network Support Specialist Relationship Specialty Start Date End Date Roc Steele MD [address] [facility] [address] [place] [address] PCP - General 10/04/22 FOR RECORDS PERTAINING TO PATIENTS WHO ARE [...] BE BASED ON THE PRIMARY CLINICAL RECORDS. [facility] [employer] [facility]. provides no warranty or guarantee of the accuracy or completeness of information in this document.
[2024-10-14 08:50] VITALS: BP 174/108; PULSE 69; TEMP 36.8; O2SAT 97
[2024-10-14 09:10] VITALS: BP 174/92; PULSE 75; O2SAT 99
[2024-10-14 09:11] VITALS: BP 175/94; PULSE 70; O2SAT 97
[2024-10-14] MEDS: 0.9 % SODIUM CHLORIDE 10 ML SYRINGE - SALINE FLUSH INJ (09:14)
[2024-10-14] MEDS: BUPIVACAINE HCL 0.25% PF 25 MG/10 ML VIAL INJ (09:14)
[2024-10-14] MEDS: DEXAMETHASONE SOD PHOS 10 MG/ML VIAL INJ (09:14)
--- NOTE | 2024-10-14 09:14 | P.ON_ITS ---
Date of procedure: 10/14/24 Pre-op diagnosis: Pain due to lumbar stenosis with neurogenic claudication Post-op diagnosis: same as pre-op Procedure: Procedure: Right L3-4, L4-5 transforaminal epidural steroid injection Medications: Bupivacaine 0.25% 2cc, lidocaine 2% 1cc, depomedrol 80mg The patient was seen and examined in the preoperative holding area.? Informed consent was obtained and placed on the chart.? Patient was brought to the medical procedure unit and placed in the prone position where a timeout was completed verifying the correct patient, procedure site, position, and planned special equipment using sterile aseptic technique.? Under direct fluoroscopic visualization a 25-gauge Quincke tipped spinal needle was advanced to the designated neural foramen where contrast dye was injected to show adequate spread.? The needle was inserted at level right L3-4. There was no evidence of vascular or adverse uptake.? Epidural spread was appreciated.? The above- mentioned injectate was then placed in a 1.5 mL aliquot preceded by negative aspiration.? The needle was removed. The needle was inserted and the procedure repeated at level right L4-5.? The surgery site was covered.? Patient was taken to the postprocedural recovery area and monitored for an appropriate length of time before found suitable for discharge in the accompaniment of a responsible adult. Anesthesia: Local Surgeon: Ml Sanchez Pathology: none sent Condition: stable Disposition: no change
[2024-10-14] MEDS: IOHEXOL 240 MG/ML - 10 ML VIAL 12 MG INJ (09:15)
[2024-10-14] MEDS: LIDOCAINE HCL 2% 400 MG/20 ML MDV INJ (09:15)
== END 2024-10-14 09:20 | disposition home or self-care (01) ==
LOC: SURGOUT 08:30
PROVIDERS: PCP Internal Medicine; Visit Provider Anesthesiology
DX: M48.062 Spinal stenosis, lumbar region with neurogenic claudication (principal); M54.50 Low back pain, unspecified
CPT/HCPCS: 64483; 64484; J0665; J1100; Q9966

== ENCOUNTER 2024-10-31 10:08 | Outpatient (OUT) | payer MEDICARE, OTHER, SELFPAY ==
--- OUTSIDE RECORDS SUMMARY | 2024-10-31 10:11 | XMS_ITS | Encounter Summary ---
Author Organization [facility] Address [address] [place] [address] Care Team Providers Care Consulting Systems Engineer Name Role Phone Roc Steele MD Primary Care Provider [phone] Roc Steele MD Unavailable [phone] Luis Felipe Dugan DO Unavailable [phone] Raya Holt RN Unavailable [phone] Gladis Laird LPN Unavailable Encounter Details Date Type Department Care Team (Late st Contact Info) Description 07/11/2024 Abstract [facility] 112 [facility] 110 [place] [address] Roc Steele MD 112 [facility] 110 [place], [place] [id number] Social History Tobacco Use Types Packs/Day Years [...] How often do you attend chur or jehovah's witness services? Never 11/25/2022 Do you belong to any clubs o r organizations such as yazdanism groups, unions, fraternal or athletic groups, or [...] Recorded Patient Health Questionnaire-2 Score 0 07/11/2024 [facility] - Occupational Stress [...] Care Team (Late st Contact Info) Description 12/19/2024 3:00 PM EDT Procedure Visit [facility] [address] [place] [address] [place] [address] Alex Tam DPRen [address] [facility] 5 [place] [address] documented as of this encounter Visit Diagnoses Not on filedocumented in this encounter Additional Health Concerns Assessment Noted Time PHQ-9 Depression Total Score: 0 07/06/19 24 3:00 PM EST documented as of this encounter Care Teams Consulting Systems Engineer Relationship Specialty Start Date End Date Roc Steele MD [address] [facility] 110 [place] [address] PCP - General Internal Medicine 09/28/22 Roc Steele MD [address] [facility] 110 [place] [address] PCP - ACO Reach 08/30/23 Luis Felipe Dugan DO [address] [place] [address] Referring Physician Neurology 03/07/24 Raya Holt, CARMEN [address] [place] [address] Clinical Advocate Family Medicine 06/07/24 07/19/24 Gladis Laird LPN [address] [facility] 110 [place] [address] 07/19/24 documented as of this encounter
--- OUTSIDE RECORDS SUMMARY | 2024-10-31 10:11 | XMS_ITS | Encounter Summary ---
Author Organization [facility] Address [address] [place] [address] Care Team Providers Care Alternative Medicine Practitioner Name Role Phone Roc Steele MD Unavailable [phone] Roc Steele MD Primary Care Provider [phone] Roc Steele MD Unavailable [phone] Luis Felipe Dugan DO Unavailable [phone] Raya Holt RN Unavailable [phone] Gladis Laird LPN Unavailable Encounter Details Date Type Department Care Team (Late st Contact Info) Description 03/02/2023 Abstract [facility] [address] [facility] 110 [place] [id number] Roc Steele MD [address] [place] [facility] 110 [place], [place] [id number] Social History Tobacco Use Types Packs/Day Years [...] often do you attend chur ch or cheondoism services? Never 11/25/2022 Do you belong to any clubs o r organizations such as latter-day groups, unions, fraternal or athletic groups, or [...] heating? Not hard at all 11/25/2022 [facility] Occupat ional Health [...] ([facility] st Contact Info) Description 12/19/2024 3:00 PM EDT Procedure Visit [facility] [address] [facility] 120 [place] [address] Alex Tam DPM 3006 [facility] 5 [place] [address] documented as of this encounter Visit Diagnoses Not on filedocumented in this encounter Care Teams Alternative Medicine Practitioner Relationship Specialty Start Date End Date Roc Steele MD [address] [facility] [address] [place] [address] PCP - ACO Reach 09/22/22 06/29/23 Roc Steele MD [address] [facility] [address] [place], [place] [address] PCP - General Internal Medicine 09/28/22 Roc Steele MD [address] [facility] [address] [place] [address] PCP - ACO Reach 08/30/23 Luis Felipe Dugan DO [address] [place] [address] Referring Physician Neurology 03/07/24 Raya Holt, RN [address] [place], [place] [address] Clinical Advocate Family Medicine 06/07/24 07/19/24 Gladis Laird LPN [address] [facility] [address] [place] [address] 07/19/24 documented as of this encounter
--- OUTSIDE RECORDS SUMMARY | 2024-10-31 10:11 | XMS_ITS | Encounter Summary ---
Author Organization [facility] Address [address] [place] [address] Care Team Providers Care Die Cutter Apprentice Name Role Phone Roc Steele MD Primary Care Provider [phone] Roc Steele MD Unavailable [phone] RitchieBulljulianojean-claude DO Unavailable [phone] Gladis Laird LPN Unavailable Encounter Details Date Type Department Care Team (Late st Contact Info) Description 07/24/2024 Abstract [facility] [address] [facility] 110 [place] [address] Roc Steele MD 112 [facility] 110 [place], [place] [id number] Social History Tobacco Use Types Packs/Day Years [...] How often do you attend chur or worship services? Never 11/25/2022 Do you belong to any clubs o r organizations such as taoism groups, unions, fraternal or athletic groups, or [...] Recorded Patient Health Questionnaire-2 Score 0 07/11/2024 [facility] Occupat ional Health - [...] Upcoming Encounters Date Type Department Care Team ([facility] st Contact Info) Description 12/19/2024 3:00 PM EDT Procedure Visit [facility] 112 [facility] 120 [place] [id number] Alex Tam DPRen 3006 [facility] [place] 5 [place] [address] documented as of this encounter Visit Diagnoses Not on filedocumented in this encounter Additional Health Concerns Assessment Noted Time PHQ-9 Depression Total Score: 0 07/06/19 24 3:00 PM EST documented as of this encounter Care Teams Die Cutter Apprentice Relationship Specialty Start Date End Date Roc Steele MD 112 [facility] 110 [place] [address] PCP - General Internal Medicine 09/28/22 Roc Steele MD [address] [place], [place] [address] PCP - ACO Reach 08/30/23 Luis Felipe Dugan DO [address] [place] [address] Referring Physician Neurology 03/07/24 Gladis Laird LPN [address] [place] [address] 07/19/24 documented as of this encounter
--- OUTSIDE RECORDS SUMMARY | 2024-10-31 10:11 | XMS_ITS | Encounter Summary ---
Author Organization [facility] Address [address] [place] [address] Care Team Providers Care Dictaphone Technician Name Role Phone Roc Steele MD Unavailable [phone] Roc Steele MD Primary Care Provider [phone] Roc Steele MD Unavailable [phone] Luis Felipe Dugan DO Unavailable [phone] Raya Holt RN Unavailable [phone] Gladis Laird LPN Unavailable Encounter Details Date Type Department Care Team (Late st Contact Info) Description 03/01/2023 Abstract [facility] [address] [facility] 110 [place] [address] Aarti Castillo, DIRECTOR SOCIAL [address] [facility] 110 [place], [place] [id number] Social History Tobacco Use Types Packs/Day Years [...] often do you attend chur ch or catholic services? Never 11/25/2022 Do you belong [...] and heating? Not hard at all 11/25/2022 [facility] Occupat ional [...] [facility] st Contact Info) Description 12/19/2024 3:00 PM EDT Procedure Visit [facility] [address] [email or web address] 120 [place] [address] Alex Tam DPM 3006 [facility] 5 [place] [address] documented as of this encounter Visit Diagnoses Not on filedocumented in this encounter Care Teams Dictaphone Technician Relationship Specialty Start Date End Date Roc Steele MD [address] [facility] 110 [place] [address] PCP - ACO Reach 09/22/22 06/29/23 Roc Steele MD [address] [facility] 110 [place] [address] PCP - General Internal Medicine 09/28/22 Roc Steele MD [address] [facility] [address] [place] [address] PCP - ACO Reach 08/30/23 Luis Felipe Dugan DO [address] [place] [address] Referring Physician Neurology 03/07/24 Raya Holt, RN [address] [place], [place] [address] Clinical Advocate Family Medicine 06/07/24 07/19/24 Gladis Laird LPN [address] [facility] [address] [place] [address] 07/19/24 documented as of this encounter
--- OUTSIDE RECORDS SUMMARY | 2024-10-31 10:11 | XMS_ITS | Encounter Summary ---
Author Organization [facility] Address [address] [place] [address] Care Team Providers Care Hospice Care Sales Consultant Name Role Phone Roc Steele MD Primary Care Provider [phone] Roc Steele MD Unavailable [phone] Luis Felipe Dugan DO Unavailable [phone] Raya Holt RN Unavailable [phone] Gladis Laird LPN Unavailable Encounter Details Date Type Department Care Team (Late st Contact Info) Description 07/02/2024 Abstract [facility] 112 [facility] 110 [place] [address] Roc Steele MD 112 [facility] 110 [place], [place] [address] Social History Tobacco Use Types Packs/Day Years [...] Recorded Patient Health Questionnaire-2 Score 0 07/03/2024 [facility] - Occupational Stress Questionnaire Answer Date [...] hopeless Not at all 08/2024 11:28 AM PPAO DÍAZ Patient Health Questionnaire-2 Score 0 08/2024 11:28 AM PAPO DÍAZ documented as of this encounter Plan of Treatment Upcoming Encounters Date Type Department Care Team (Late st Contact Info) Description 12/19/2024 3:00 PM EDT Procedure Visit [facility] 112 [facility] 120 [place] [address] Alex Tam DPM 3006 [facility] 5 [place] [address] documented as of this encounter Visit Diagnoses Not on filedocumented in this encounter Additional Health Concerns Assessment Noted Time PHQ-9 Depression Total Score: 0 07/06/19 24 3:00 PM EST documented as of this encounter Care Teams Hospice Care Sales Consultant Relationship Specialty Start Date End Date Roc Steele MD [address] [facility] 110 [place] [address] PCP - General Internal Medicine 09/28/22 Roc Steele MD [address] [facility] 110 [place] [address] PCP - ACO Reach 08/30/23 Luis Felipe Dugan DO [address] [place] [address] Referring Physician Neurology 03/07/24 Raya Holt, RN [address] [place] [address] Clinical Advocate Family Medicine 06/07/24 07/19/24 Gladis Laird LPN [address] [facility] 110 [place] [address] 07/19/24 documented as of this encounter
--- OUTSIDE RECORDS SUMMARY | 2024-10-31 10:11 | XMS_ITS | Encounter Summary ---
Author Organization [facility] Address [address] [place] [address] Care Team Providers Care Mining Speculator Name Role Phone Roc Steele MD Primary Care Provider [phone] Roc Steele MD Unavailable [phone] Luis Felipe Dugan DO Unavailable [phone] Raya Holt RN Unavailable [phone] Gladis Laird LPN Unavailable Encounter Details Date Type Department Care Team (Late st Contact Info) Description 06/10/2024 Orders Only [facility] [address] [place] 110 [place] [address] Unallocated, Noms Provider, [address] [place], [place] [address] Social History Tobacco Use Types Packs/Day Years [...] any clubs o r organizations such as temple groups, unions, fraternal or athletic groups, or [...] Recorded Patient Health Questionnaire-2 Score 0 07/06/2023 [facility] of Occupat ional Health - Occupational Stress [...] Upcoming Encounters Date Type Department Care Team ([facility] st Contact Info) Description 12/19/2024 3:00 PM EDT Procedure Visit [facility] PODIAT[facility] 112 [facility] 120 [place] [address] Alex Tam DPM 7868 [facility] 5 [place] [address] documented as of this encounter Procedures Procedure [...] documented as of this encounter Care Teams Mining Speculator Relationship Specialty Start Date End Date Roc Steele MD [address] [facility] 110 [place] [address] PCP - General Internal Medicine 09/28/22 Roc Steele MD [address] [facility] 110 [place] [address] PCP - ACO Reach 08/30/23 Luis Felipe Dugan DO [address] [place] [address] Referring Physician Neurology 03/07/24 Raya Holt, RN [address] [place] [address] Clinical Advocate Family Medicine 06/07/24 07/19/24 Gladis Laird LPN [address] [facility] 110 [place] [address] 07/19/24 documented as of this encounter
--- OUTSIDE RECORDS SUMMARY | 2024-10-31 10:11 | XMS_ITS | Encounter Summary ---
Author Organization [facility] Address [address] [place] [address] Care Team Providers Care Chief Compliance Officer Name Role Phone Roc Steele MD Unavailable [phone] Roc Steele MD Primary Care Provider [phone] Roc Steele MD Unavailable [phone] Luis Felipe Dugan DO Unavailable [phone] Raya Holt RN Unavailable [phone] Gladis Laird LPN Unavailable Encounter Details Date Type Department Care Team (Late st Contact Info) Description 12/07/2022 Orders Only [facility] [address] [place] [address] [place] [address] A, Unknown Practice 1300 [place] [address] Social History Tobacco Use Types Packs/Day Years [...] and heating? Not hard at all 11/25/2022 [facility] of Occupat ional Health - Occupational [...] CI PODIATRY 112 [facility] 120 [place] [address] Alex Tam DPM 0542 [facility] 5 [place] [address] documented as of this encounter Procedures Procedure [...] on filedocumented in this encounter Care Teams Chief Compliance Officer Relationship Specialty Start Date End Date Roc Steele MD [address] [facility] 110 [place] [address] PCP - ACO Reach 09/22/22 06/29/23 Roc Steele MD [address] [facility] 110 [place] [address] PCP - General Internal Medicine 09/28/22 Roc Steele MD [address] [facility] 110 [place] [address] PCP - ACO Reach 08/30/23 Luis Felipe Dugan DO [address] [place] [address] Referring Physician Neurology 03/07/24 Raya Holt, CARMEN [address] [place], [place] [address] Clinical Advocate Family Medicine 06/07/24 07/19/24 Gladis Laird LPN [address] [facility] 110 [place] [address] 07/19/24 documented as of this encounter
--- OUTSIDE RECORDS SUMMARY | 2024-10-31 10:11 | XMS_ITS ---
Author Organization [facility] Address [address] [place] [address] Care Team Providers Care Waste Specialist Name Role Phone Roc Steele MD Primary Care Provider Roc Steele MD Unavailable [phone] Luis Felipe Dugan DO Unavailable [phone] Gladis Laird LPN Unavailable Chronic Care Management (CCM) Status:Enrolled (Active) Start date:09/15/2022 Enrollment date:09/15/2022 Overview 03/01/23, 9:16 AM - Lydiamonday, LARRY- Patient gives verbal consent to be enrolled in CCM Program and understands there could be a bill for this service. Case Team Name Relationship Phone Galdis Laird LPN(Responsible Staff) [phone] Continued Care and Services Coordination
--- OUTSIDE RECORDS SUMMARY | 2024-10-31 10:11 | XMS_ITS | Clinical Summary ---
Author Organization [facility] Address [address] [place] [address] Care Team Providers Care Pool Cleaner Name Role Phone Unavailable Primary Care Provider [...]
--- OUTSIDE RECORDS SUMMARY | 2024-10-31 10:11 | XMS_ITS | Encounter Summary ---
Author Organization [facility] Address [address] [place] [address] Care Team Providers Care Water Valve Mechanic Name Role Phone Roc Steele MD Unavailable [phone] Roc Steele MD Primary Care Provider [phone] Roc Steele MD Unavailable [phone] Luis Felipe Dugan DO Unavailable [phone] Raya Holt RN Unavailable [phone] Gladis Laird LPN Unavailable Encounter Details [...] often do you attend chur ch or anabaptist services? Never 11/25/2022 Do you [...] and heating? Not hard at all 11/25/2022 [facility] of Occupat ional Health - [...] Upcoming Encounters Date Type Department Care Team ([facility] st Contact Info) Description 12/19/2024 3:00 PM EDT Procedure Visit [facility] PODIATRY 112 [facility] 120 [place] [address] Alex Tam DPM 3006 [facility] 5 [place] [address] documented as of this encounter Procedures Procedure Name Priority Date/Time Associated Diagnosis Comments XR CHEST 2V 06/22/2023 3:17 PM EST documented in this encounter Results * XR CHEST 2V (06/22/2023 3:17 PM EST) Anatomical Region Laterality Modality Other 06/22/2023 3:17 PM EST Narrative 06/22/2023 3:19 PM EST The [address] [address] XRay Report Signed Patient: USHA WALKER MR#: [id number] : 1945 Acct:[id number] Age/Sex: 77 / F ADM Date: 06/22/23 Loc: LAB Attending Dr: ALEX TAM Ordering Physician: ALEX TAM Date of Service: 06/22/23 Procedure(s): XR chest 2V Accession Number(s): [id number] cc: ROC STEELE ; LAEX TAM The [address] [address] Patient Name: USHA WALKER MRN: [id number] date: 1945 Sex: F Assigned Patient Location: LAB Current Patient Location: LAB Accession/Order Number: [id number] Exam Date: 06/22/2023 14:05 Report Date: 06/22/2023 [...] suggest pneumonia. Mild cardiomegaly. Electronically authenticated by: MARY LOU JOSE Date: 06/22/2023 15:17 Dictated By: Mary Lou Jose M.D. Signed By: 06/22/23 1519 DD/ 1517 TD/TT: Filters Assembler: Procedure Note Radiology, Radiologist, MD - 06/22/2023 [place] [address] XRay Report Signed Patient: USHA WALKER KMR#: [id number] : 7Acct:[id number] Age/Sex: 77 / FADM Date: 06/22/23 Loc: LAB Attending Dr: ALEX TAM Ordering Physician: ALEX TAM Date of Service: 06/22/23 Procedure(s): XR chest 2V Accession Number(s): [id number] cc: ROC STEELE ; ALEX TAM [address] [address] Patient Name: USHA WALKER MRN: [id number] date: 1945 Sex: F Assigned Patient Location: LAB Current Patient Location: LAB Accession/Order Number: [id number] Exam Date: 06/22/2023 14:05 Report Date: 06/22/2023 [...] suggest pneumonia. Mild cardiomegaly. Electronically authenticated by: MARY LOU JOSE Date: 06/22/2023 15:17 Dictated By: Mary Lou Jose M.D. Signed By:06/22/23 1519 DD/ 1517 TD/TT: Filters Assembler: Generic External Data Provider [facility] Final Result documented in this encounter Visit Diagnoses Not on filedocumented in this encounter Care Teams Water Valve Mechanic Relationship Specialty Start Date End Date Roc Steele MD [address] [facility] 110 [place] [address] PCP - ACO Reach 09/22/22 06/29/23 Roc Steele MD [address] [facility] 110 [place] [address] PCP - General Internal Medicine 09/28/22 Roc Steele MD [address] [place] [address] [place] [address] PCP - ACO Reach 08/30/23 Luis Felipe Dugan DO [address] [place] [address] Referring Physician Neurology 03/07/24 Raya Holt, RN [address] [place], [place] [address] Clinical Advocate Family Medicine 06/07/24 07/19/24 Gladis Laird LPN [address] [facility] 110 [place] [address] 07/19/24 documented as of this encounter
--- OUTSIDE RECORDS SUMMARY | 2024-10-31 10:11 | XMS_ITS | Encounter Summary ---
Author Organization [facility] Address [address] [place] [address] Care Team Providers Care Plastic Manager Name Role Phone Roc Steele MD Primary Care Provider [phone] Roc Steele MD Unavailable [phone] Luis Felipe Dugan DO Unavailable [phone] Raya Holt RN Unavailable [phone] Gladis Laird LPN Unavailable Encounter Details Date Type Department Care Team (Late st Contact Info) Description 03/06/2024 Orders Only [facility] [place] 703 [facility] 353 [place] [address] Aarti Castillo, POWER LINE LINEMAN 112 [facility] 110 [place] [address] Social History Tobacco Use Types Packs/Day [...] often do you attend chur ch or denominational services? Never 11/25/2022 Do you belong to any clubs o r organizations such as congregational groups, unions, fraternal or athletic groups, or [...] Recorded Patient Health Questionnaire-2 Score 0 07/06/2023 [facility] of Occupat ional Health - Occupational Stress [...] PODIATRY 112 [facility] 120 [place] [address] Alex Tam DPM 0192 [facility] 5 [place] [address] documented as of this encounter Procedures Procedure Name Priority Date/Time Associated Diagnosis Comments EMG AND NERVE CONDUCTION STUDY Routine 07/28/2021 3:41 PM EDT documented in this encounter Results * EMG AND NERVE CONDUCTION STUDY (07/28/2021 3:41 PM EDT) us Aarti Castillo POWER LINE LINEMAN NEUROLOGY ORDERABLES Final R esult documented in this encounter Visit Diagnoses Not on filedocumented in this encounter Additional Health Concerns Assessment Noted Time PHQ-9 Depression Total Score: 0 07/06/19 24 3:00 PM EST documented as of this encounter Care Teams Plastic Manager Relationship Specialty Start Date End Date Roc Steele MD [address] [facility] 110 [place] [address] PCP - General Internal Medicine 09/28/22 Roc Steele MD [address] [facility] 110 [place] [address] PCP - ACO Reach 08/30/23 Luis Felipe Dugan DO [address] [place] [address] Referring Physician Neurology 03/07/24 Raya Holt, CARMEN [address] [place] [address] Clinical Advocate Family Medicine 06/07/24 07/19/24 Gladis Laird LPN [address] [facility] 110 [place] [address] 07/19/24 documented as of this encounter
--- OUTSIDE RECORDS SUMMARY | 2024-10-31 10:11 | XMS_ITS | Encounter Summary ---
Author Organization [facility] Address [address] [place] [address] Care Team Providers Care Ged Tutor Name Role Phone Roc Steele MD Unavailable [phone] Roc Steele MD Primary Care Provider [phone] Roc Steele MD Unavailable [phone] Luis Felipe Dugan DO Unavailable [phone] Raya Holt RN Unavailable [phone] Gladis Laird LPN Unavailable Encounter Details Date Type Department Care Team (Late st Contact Info) Description 12/07/2022 Abstract [facility] 112 [facility] [facility] 110 [place] [address] Roc Steele MD [address] [place] 110 [place], [place] [address] Social History Tobacco Use Types Packs/Day Years [...] often do you attend chur ch or shinto services? Never 11/25/2022 Do you [...] and heating? Not hard at all 11/25/2022 [facility] of Occupat ional Health - [...] Upcoming Encounters Date Type Department Care Team ([facility] st Contact Info) Description 12/19/2024 3:00 PM EDT Procedure Visit [facility] PODIATRY [address] [facility] 120 [place] [address] Alex Tam DPM 3006 [facility] 5 [place] [address] documented as of this encounter Visit Diagnoses Not on filedocumented in this encounter Care Teams Ged Tutor Relationship Specialty Start Date End Date Roc Steele MD [address] [facility] 110 [place] [address] PCP - ACO Reach 09/22/22 06/29/23 Roc Steele MD [address] [facility] 110 [place], [place] [address] PCP - General Internal Medicine 09/28/22 Roc Steele MD [address] [facility] 110 [place] [address] PCP - ACO Reach 08/30/23 Luis Felipe Dugan DO [address] [place] [address] Referring Physician Neurology 03/07/24 Raya Holt, RN [address] [place], [place] [address] Clinical Advocate Family Medicine 06/07/24 07/19/24 Gladis Laird LPN [address] [facility] 110 [place] [address] 07/19/24 documented as of this encounter
--- OUTSIDE RECORDS SUMMARY | 2024-10-31 10:11 | XMS_ITS | Encounter Summary ---
Author Organization [facility] Address [address] [place] [address] Care Team Providers Care Labor Relations Consultant Name Role Phone Roc Steele MD Primary Care Provider [phone] Roc Steele MD Unavailable [phone] RitchieBulljulianojean-claude DO Unavailable [phone] Gladis Laird LPN Unavailable Encounter Details Date Type Department Care Team (Late st Contact Info) Description 07/23/2024 Abstract [facility] 112 [address] [facility] 110 [place] [address] Roc Steele MD 112 [facility] 110 [place], [place] [address] Social History Tobacco Use Types Packs/Day Years [...] How often do you attend chur or hinduism services? Never 11/25/2022 Do you belong to any clubs o r organizations such as zoroastrianism groups, unions, fraternal or athletic groups, or [...] Recorded Patient Health Questionnaire-2 Score 0 07/11/2024 [facility] of Occupat ional Health [...] Upcoming Encounters Date Type Department Care Team ([facility] st Contact Info) Description 12/19/2024 3:00 PM EDT Procedure Visit [facility] PODIATRY 112 [facility] 120 [place] [address] Alex Tam DPRen 3006 [facility] 5 [place] [address] documented as of this encounter Visit Diagnoses Not on filedocumented in this encounter Additional Health Concerns Assessment Noted Time PHQ-9 Depression Total Score: 0 07/06/19 24 3:00 PM EST documented as of this encounter Care Teams Labor Relations Consultant Relationship Specialty Start Date End Date Roc Steele MD 112 [facility] 110 [place] [address] PCP - General Internal Medicine 09/28/22 Roc Steele MD [address] [facility] [address] [place], [place] [address] PCP - ACO Reach 08/30/23 Luis Felipe Dugan DO [address] [place] [address] Referring Physician Neurology 03/07/24 Gladis Laird LPN [address] [facility] [address] [place] [address] 07/19/24 documented as of this encounter
--- OUTSIDE RECORDS SUMMARY | 2024-10-31 10:11 | XMS_ITS | Encounter Summary ---
Author Organization [facility] Address [address] [place] [address] Care Team Providers Care Retread Technician Name Role Phone Roc Steele MD Primary Care Provider [phone] Roc Steele MD Unavailable [phone] RitchieBulljulianojean-claude DO Unavailable [phone] Gladis Laird LPN Unavailable Encounter Details Date Type Department Care Team (Late st Contact Info) Description 07/23/2024 Abstract [facility] 112 [address] [facility] 110 [place] [address] Roc Setele MD 112 [facility] 110 [place], [place] [address] Social History Tobacco Use Types Packs/Day Years [...] Recorded Patient Health Questionnaire-2 Score 0 07/11/2024 [facility] of Occupat ional Health - [...] Encounters Date Type Department Care Team ([facility] st Contact Info) Description 12/19/2024 3:00 PM EDT Procedure Visit [facility] PODIATRY 112 [facility] 120 [place] [address] Alex Tam DPRen 3006 [facility] 5 [place] [address] documented as of this encounter Visit Diagnoses Not on filedocumented in this encounter Additional Health Concerns Assessment Noted Time PHQ-9 Depression Total Score: 0 07/06/19 24 3:00 PM EST documented as of this encounter Care Teams Retread Technician Relationship Specialty Start Date End Date Roc Steele MD 112 [facility] 110 [place] [address] PCP - General Internal Medicine 09/28/22 Roc Steele MD [address] [facility] [address] [place], [place] [address] PCP - ACO Reach 08/30/23 Luis Felipe Dugan DO [address] [place] [address] Referring Physician Neurology 03/07/24 Gladis Laidr LPN [address] [facility] [address] [place] [address] 07/19/24 documented as of this encounter
--- OUTSIDE RECORDS SUMMARY | 2024-10-31 10:11 | XMS_ITS | Encounter Summary ---
Author Organization [facility] Address [address] [place] [address] Care Team Providers Care Sanitation Tank Washer Name Role Phone Roc Steele MD Primary Care Provider [phone] Roc Steele MD Unavailable [phone] Luis Felipe Dugan DO Unavailable [phone] Raya Holt RN Unavailable [phone] Gladis Laird LPN Unavailable Encounter Details Date Type Department Care Team (Late st Contact Info) Description 06/25/2024 Abstract [facility] 112 [facility] 110 [place] [address] Roc Steele MD 112 [facility] 110 [place], [place] [address] Social History Tobacco Use Types Packs/Day Years [...] How often do you attend chur or druze services? Never 11/25/2022 Do you belong to any clubs o r organizations such as rastafarian groups, unions, fraternal or athletic groups, or [...] Recorded Patient Health Questionnaire-2 Score 0 07/06/2023 [facility] of Occupat ionwy Health - Occupational Stress Questionnaire Answer Date [...] Upcoming Encounters Date Type Department Care Team ([facility] st Contact Info) Description 12/19/2024 3:00 PM EDT Procedure Visit [facility] PODIATRY 112 [facility] 120 [place] [address] Alex Tam DPM 3006 [facility] [place] 5 [place] [address] documented as of this encounter Visit Diagnoses Not on filedocumented in this encounter Additional Health Concerns Assessment Noted Time PHQ-9 Depression Total Score: 0 07/06/19 24 3:00 PM EST documented as of this encounter Care Teams Sanitation Tank Washer Relationship Specialty Start Date End Date Roc Steele MD [address] [facility] [address] [place] [address] PCP - General Internal Medicine 09/28/22 Roc Steele MD [address] [facility] [address] [place] [id number] PCP - ACO Reach 08/30/23 Luis Felipe Dugan DO [address] [place] [address] Referring Physician Neurology 03/07/24 Raya Holt, RN [address] [place], [place] [address] Clinical Advocate Family Medicine 06/07/24 07/19/24 Gladis Laird LPN [address] [facility] [address] [place] [address] 07/19/24 documented as of this encounter
--- OUTSIDE RECORDS SUMMARY | 2024-10-31 10:11 | XMS_ITS | Encounter Summary ---
Author Organization [facility] Address [address] [place] [address] Care Team Providers Care Electronic Prepress Technician Name Role Phone Roc Steele MD Primary Care Provider [phone] Roc Steele MD Unavailable [phone] Luis Felipe Dugan DO Unavailable [phone] Raya Holt RN Unavailable [phone] Gladis Laird LPN Unavailable Encounter Details Date Type Department Care Team (Late st Contact Info) Description 07/11/2024 Abstract [facility] 112 [facility] 110 [place] [address] Roc Steele MD 112 [facility] 110 [place], [place] [address] Social History Tobacco Use Types Packs/Day Years [...] Recorded Patient Health Questionnaire-2 Score 0 07/11/2024 [facility] of Occupat iontn Health - [...] NOMS PODIATRY [address] [place] 120 [place] [address] Alex Tam DPRen 3006 [facility] 5 [place] [address] documented as of this encounter Visit Diagnoses Not on filedocumented in this encounter Additional Health Concerns Assessment Noted Time PHQ-9 Depression Total Score: 0 07/06/19 24 3:00 PM EST documented as of this encounter Care Teams Electronic Prepress Technician Relationship Specialty Start Date End Date Roc Steele MD [address] [place] 110 [place] [address] PCP - General Internal Medicine 09/28/22 Roc Steele MD 112 [facility] 110 [place] [address] PCP - ACO Reach 08/30/23 Luis Felipe Dugan DO [address] [place] [address] Referring Physician Neurology 03/07/24 Raya Holt, CARMEN [address] [place] [address] Clinical Advocate Family Medicine 06/07/24 07/19/24 Gladis Laird LPN 112 [facility] 110 [place] [address] 07/19/24 documented as of this encounter
--- OUTSIDE RECORDS SUMMARY | 2024-10-31 10:11 | XMS_ITS | Encounter Summary ---
Author Organization [facility] Address [address] [place] [address] Care Team Providers Care Hack Saw Operator Name Role Phone Roc Steele MD Primary Care Provider [phone] Roc Steele MD Unavailable [phone] Luis Felipe Dugan DO Unavailable [phone] Raya Holt RN Unavailable [phone] Gladis Laird LPN Unavailable Encounter Details Date Type Department Care Team (Late st Contact Info) Description 05/16/2024 Abstract [facility] 112 [facility] 110 [place] [address] Roc Steele MD 112 [facility] 110 [place], [place] [address] Social History Tobacco Use Types [...] How often do you attend chur or mandaeism services? Never 11/25/2022 Do you [...] Recorded Patient Health Questionnaire-2 Score 0 07/06/2023 [facility] of Occupat ionnv Health - Occupational Stress Questionnaire Answer Date [...] Upcoming Encounters Date Type Department Care Team ([facility] st Contact Info) Description 12/19/2024 3:00 PM EDT Procedure Visit [facility] 112 [facility] [address] 120 [place] [address] Alex Tam DPM 3006 [facility] [address] 5 [place] [address] documented as of this encounter Visit Diagnoses Not on filedocumented in this encounter Additional Health Concerns Assessment Noted Time PHQ-9 Depression Total Score: 0 07/06/19 24 3:00 PM EST documented as of this encounter Care Teams Hack Saw Operator Relationship Specialty Start Date End Date Roc Steele MD [address] [place] [address] PCP - General Internal Medicine 09/28/22 Roc Steele MD [address] [place] [place] [phone] PCP - ACO Reach 08/30/23 Luis Felipe Dugan DO [address] [place] [address] Referring Physician Neurology 03/07/24 Raya Holt, RN [address] [place], [place] [address] Clinical Advocate Family Medicine 06/07/24 07/19/24 Gladis Laird LPN [address] [place] [address] 07/19/24 documented as of this encounter
--- OUTSIDE RECORDS SUMMARY | 2024-10-31 10:11 | XMS_ITS | Encounter Summary ---
Author Organization [facility] Address [address] [place] [address] Care Team Providers Care News Internship Name Role Phone Roc Steele MD Unavailable [phone] Roc Steele MD Primary Care Provider [phone] Roc Steele MD Unavailable [phone] Luis Felipe Dugan DO Unavailable [phone] Raya Holt RN Unavailable [phone] Gladis Laird LPN Unavailable Encounter Details Date Type Department Care Team (Late st Contact Info) Description 12/02/2022 Orders Only [facility] [address] [place] [address] [place] [address] A, Unknown Practice [address] [place] [address] Social History Tobacco Use Types [...] any clubs o r organizations such as buddhism groups, unions, fraternal or athletic groups, or [...] EDT Procedure Visit [facility] PODIATRY 112 [facility] 120 [place] [address] Alex Tam, DPRen 3000 [facility] 5 [place] [address] documented as of this encounter Procedures Procedure [...] on filedocumented in this encounter Care Teams News Internship Relationship Specialty Start Date End Date Roc Steele MD [address] [facility] 110 [place] [address] PCP - ACO Reach 09/22/22 06/29/23 Roc Steele MD 112 [facility] 110 [place] [address] PCP - General Internal Medicine 09/28/22 Roc Steele MD 112 [facility] 110 [place] [address] PCP - ACO Reach 08/30/23 Luis Felipe Dugan DO [address] [place] [address] Referring Physician Neurology 03/07/24 Raya Holt, RN [address] [place], [place] [address] Clinical Advocate Family Medicine 06/07/24 07/19/24 Gladis Laird LPN [address] [facility] 110 [place] [address] 07/19/24 documented as of this encounter
--- OUTSIDE RECORDS SUMMARY | 2024-10-31 10:11 | XMS_ITS | Encounter Summary ---
Author Organization [facility] Address [address] [place] [address] Care Team Providers Care Crop Farm Helper Name Role Phone Roc Steele MD Primary Care Provider [phone] Roc Steele MD Unavailable [phone] Luis Felipe Dugan DO Unavailable [phone] Raya Holt RN Unavailable [phone] Gladis Laird LPN Unavailable Encounter Details Date Type Department Care Team (Late st Contact Info) Description 05/17/2024 Orders Only [facility] [address] [place] [address] [place] [address] Unallocated, Noms Provider, [address] [place], [place] [address] Social History Tobacco Use Types Packs/Day Years [...] any clubs o r organizations such as advent groups, unions, fraternal or athletic groups, or [...] Recorded Patient Health Questionnaire-2 Score 0 07/06/2023 [facility] Occupat ional Health - Occupational Stress [...] ([facility] st Contact Info) Description 12/19/2024 3:00 PM EDT Procedure Visit [facility] PODIATRY 112 [facility] 120 [place] [address] Alex Tam DPM 4055 [facility] 5 [place] [address] documented as of this encounter Procedures Procedure [...] documented as of this encounter Care Teams Crop Farm Helper Relationship Specialty Start Date End Date Roc Steele MD [address] [facility] 110 [place] [address] PCP - General Internal Medicine 09/28/22 Roc Steele MD [address] [facility] 110 [place] [address] PCP - ACO Reach 08/30/23 Luis Felipe Dugan DO [address] [place] [address] Referring Physician Neurology 03/07/24 Raya Holt, CARMEN [address] [place] [address] Clinical Advocate Family Medicine 06/07/24 07/19/24 Gladis Laird LPN [address] [facility] 110 [place] [address] 07/19/24 documented as of this encounter
--- OUTSIDE RECORDS SUMMARY | 2024-10-31 10:11 | XMS_ITS | Encounter Summary ---
Author Organization [facility] Address [address] [place] [address] Care Team Providers Care Carton Machine Operator Name Role Phone Roc Steele MD Unavailable [phone] Roc Steele MD Primary Care Provider Roc Steele MD Unavailable [phone] Luis Felipe Dugan DO Unavailable Raya Holt RN Unavailable [phone] Gladis Laird LPN Unavailable Encounter Details Date Type Department Care Team (Late Contact Info) Description 10/07/2022 Orders Only [facility] [address] [place] [address] [place] [address] Aarti Castillo, BROWNFIELD REDEVELOPMENT SITE MANAGER [address] [place] [address] Social History Tobacco Use Types Packs/Day Years [...] Department Care Team (Late Contact Info) Description 12/19/2024 3:00 PM EDT Procedure Visit [facility] [address] [place] [address] [place] [address] Alex Tam DPM 3006 [facility] [address] 5 [place] [address] documented as of this encounter Procedures Procedure Name Priority Date/Time Associated Diagnosis Comments POLYSOMNOGRAPHY Routine 10/03/2022 9:04 AM EDT documented in this encounter Results * Polysomnography (10/03/2022 9:04 AM EDT) Aarti Espitiavely [employer]OWN[employer] REDEVELOPMENT SITE MANAGER [facility] ORDERABLES Maggi l Result documented in this encounter Visit Diagnoses Not on filedocumented in this encounter Care Teams Carton Machine Operator Relationship Specialty Start Date End Date Roc Steele MD [address] [place] [address] PCP - ACO Reach 09/22/22 06/29/23 Roc Steele MD [address] [place] [address] PCP - General Internal Medicine 09/28/22 Roc Steele MD [address] [place] [address] PCP - ACO Reach 08/30/23 Luis Felipe Dugan DO [address] [place] [address] Referring Physician Neurology 03/07/24 Raya Holt, CARMEN [address] [place] [address] Clinical Advocate Family Medicine 06/07/24 07/19/24 Gladis Laird LPN [address] [place] [address] 07/19/24 documented as of this encounter
--- OUTSIDE RECORDS SUMMARY | 2024-10-31 10:11 | XMS_ITS | Encounter Summary ---
Author Organization [facility] Address [address] [place] [address] Care Team Providers Care Criminology Teacher Name Role Phone Roc Steele MD Unavailable [phone] Roc Steele MD Primary Care Provider [phone] Roc Steele MD Unavailable [phone] Luis Felipe Dugan DO Unavailable [phone] Raya Holt RN Unavailable [phone] Gladis Laird LPN Unavailable Encounter Details [...] and heating? Not hard at all 11/25/2022 [facility] of Occupat ional Health - Occupational [...] Upcoming Encounters Date Type Department Care Team ([facility] st Contact Info) Description 12/19/2024 3:00 PM EDT Procedure Visit [facility] PODI[facility] 112 [facility] 120 [place] [address] Alex Tam DPM 3006 [facility] 5 [place] [address] documented as of this encounter Procedures Procedure Name Priority Date/Time Associated Diagnosis Comments ECG 12-LEAD 06/22/2023 2:24 PM EST documented in this encounter Results * ECG 12-LEAD (06/22/2023 2:24 PM EST) Anatomical Region Laterality Modality Other 06/22/2023 2:24 PM EST Narrative 06/22/2023 10:19 PM EST The [address] [address] Electrocardiograph Report Signed Patient: USHA WALKER MR#: [id number] : 1945 Acct:[id number] Age/Sex: 77 / F ADM Date: 06/22/23 Loc: LAB Attending Dr: ALEX TAM Ordering Physician: ALEX TAM Date of Service: 06/22/23 Procedure(s): ECG 12 lead Accession Number(s): [id number] cc: The [facility] Test Date: 2023-06-22 Pat Name: USHA WALKER Department: Room: - Gender: Female Hand I Cutter: : 1945 Requested By: ALEX TAM Order Number: [id number] Reading MD: ELILS DANIELSON Measurements Intervals [place] Rate: 84 P: 56 OR: 169 QRS: -28 QRSD: 118 T: 18 [...] D.O. Signed By: 06/22/23221806/22/232218 DD/ 1424 TD/TT: Sample Hand: Procedure Note Radiology, Radiologist, - 06/22/2023 [place] [address] Electrocardiograph Report Signed Patient: USHA WALKER KMR#: [id number] : 7Acct:[id number] Age/Sex: 77 / FADM Date: 06/22/23 Loc: LAB Attending Dr: ALEX TAM Ordering Physician: ALEX TAM Date of Service: 06/22/23 Procedure(s): ECG 12 lead Accession Number(s): [id number] cc: [facility] Test Date: 2023-06-22 Pat Name: USHA WALKER Department: Room: - Gender: Female Hand I Cutter: : 1945 Requested By: ALEX TAM Order Number: [id number] Reading MD: ELLIS DANIELSON Measurements Intervals [place] Rate: 84 P: 56 OR: 169 QRS: -28 QRSD: 118 T: 18 [...] Danielson D.O. Signed By:06/22/23221806/22/232218 DD/ 142 TD/TT: Sample Hand: Generic External Data Provider [facility] Final Result documented in this encounter Visit Diagnoses Not on filedocumented in this encounter Care Teams Criminology Teacher Relationship Specialty Start Date End Date Roc Steele MD [address] [facility] 110 [place] [address] PCP - ACO Reach 09/22/22 06/29/23 Roc Steele MD [address] [facility] 110 [place] [address] PCP - General Internal Medicine 09/28/22 Roc Steele MD [address] [facility] 110 [place] [address] PCP - ACO Reach 08/30/23 Luis Felipe Dugan DO [address] [place] [address] Referring Physician Neurology 03/07/24 Raya Holt, RN [address] [place] [address] Clinical Advocate Family Medicine 06/07/24 07/19/24 Gladis Laird LPN [address] [facility] 110 [place] [address] 07/19/24 documented as of this encounter
--- OUTSIDE RECORDS SUMMARY | 2024-10-31 10:12 | XMS_ITS | Encounter Summary ---
Author Organization [facility] Address [address] [place] [address] Care Team Providers Care Tieing Machine Operator Name Role Phone Roc Steele MD Primary Care Provider [phone] Roc Steele MD Unavailable [phone] Luis Felipe Dugan DO Unavailable [phone] Raya Holt RN Unavailable [phone] Gladis Laird LPN Unavailable Encounter Details Date Type Department Care Team (Late st Contact Info) Description 07/13/2023 Abstract [facility] 112 [facility] 110 [place] [address] Roc Steele MD 112 [facility] 110 [place], [place] [address] Social History Tobacco Use Types Packs/Day Years [...] How often do you attend chur or rastafari services? Never 11/25/2022 Do you [...] Recorded Patient Health Questionnaire-2 Score 0 07/06/2023 [facility] of Occupat ional Health - Occupational [...] money to buy more. Never true 11/26/19 Within the past 12 months, t he [...] Upcoming Encounters Date Type Department Care Team ([facility] st Contact Info) Description 12/19/2024 3:00 PM EDT Procedure Visit [facility] PODIATRY 112 [facility] 120 [place] [address] Alex Tam DPM 3006 [facility] 5 [place] [address] documented as of this encounter Visit Diagnoses Not on filedocumented in this encounter Additional Health Concerns Assessment Noted Time PHQ-9 Depression Total Score: 0 07/06/19 24 3:00 PM EST documented as of this encounter Care Teams Tieing Machine Operator Relationship Specialty Start Date End Date Roc Steele MD 112 [facility] 110 [place] [address] PCP - General Internal Medicine 09/28/22 Roc Steele MD 112 [facility] 110 [place] [address] PCP - ACO Reach 08/30/23 Luis Felipe Dugan DO [address] [place] [address] Referring Physician Neurology 03/07/24 Raya Holt, CARMEN [address] [place] [address] Clinical Advocate Family Medicine 06/07/24 07/19/24 Gladis Laird LPN [address] [facility] 110 [place] [address] 07/19/24 documented as of this encounter
--- OUTSIDE RECORDS SUMMARY | 2024-10-31 10:12 | XMS_ITS | Encounter Summary ---
Author Organization [facility] Address [address] [place] [address] Care Team Providers Care Roofer Vinyl Coating Name Role Phone Roc Steele MD Primary Care Provider [phone] Roc Steele MD Unavailable [phone] RitchieBulljulianojean-claude DO Unavailable [phone] Gladis Laird LPN Unavailable Encounter Details Date Type Department Care Team (Late st Contact Info) Description 08/20/2024 Abstract [facility] [address] [facility] 110 [place] [address] Roc Steele MD 112 [facility] 110 [place], [place] [address] Social History Tobacco Use Types Packs/Day Years [...] How often do you attend chur or yarsani services? Never 11/25/2022 Do you belong to any clubs o r organizations such as nondenominational groups, unions, fraternal or athletic groups, or [...] Recorded Patient Health Questionnaire-2 Score 0 08/19/2024 [facility] of Occupat ional Health - Occupational [...] CI PODIATRY 112 [facility] 120 [place] [address] Alex Tam DPRen 3006 [facility] 5 [place] [address] documented as of this encounter Visit Diagnoses Not on filedocumented in this encounter Additional Health Concerns Assessment Noted Time PHQ-9 Depression Total Score: 0 07/06/19 24 3:00 PM EST documented as of this encounter Care Teams Roofer Vinyl Coating Relationship Specialty Start Date End Date Roc Steele MD 112 [facility] 110 [place] [address] PCP - General Internal Medicine 09/28/22 Roc Steele MD [address] [place], [place] [address] PCP - ACO Reach 08/30/23 Luis Felipe Dugan DO [address] [place] [address] Referring Physician Neurology 03/07/24 Gladis Laird LPN [address] [place] [address] 07/19/24 documented as of this encounter
--- OUTSIDE RECORDS SUMMARY | 2024-10-31 10:12 | XMS_ITS | Encounter Summary ---
Author Organization [facility] Address [address] [place] [address] Care Team Providers Care Phlebotomist Medical Lab Assistant Name Role Phone Roc Steele MD Primary Care Provider [phone] Roc Steele MD Unavailable [phone] Luis Felipe Dugan DO Unavailable [phone] Raya Holt RN Unavailable [phone] Gladis Laird LPN Unavailable Encounter Details Date Type Department Care Team (Late st Contact Info) Description 05/20/2024 Abstract [facility] [address] [facility] 110 [place] [address] Roc Steele MD 112 [facility] 110 [place], [place] [address] Social History Tobacco Use Types Packs/Day Years [...] Health Questionnaire-2 Score 0 07/06/2023 [facility] of Occupat ionky Health - Occupational Stress Questionnaire Answer Date [...] ([facility] st Contact Info) Description 12/19/2024 3:00 PM EDT Procedure Visit [facility] PODIATRY 112 [facility] [address] 120 [place] [address] Alex Tam DPM 3006 [facility] [address] 5 [place] [address] documented as of this encounter Visit Diagnoses Not on filedocumented in this encounter Additional Health Concerns Assessment Noted Time PHQ-9 Depression Total Score: 0 07/06/19 24 3:00 PM EST documented as of this encounter Care Teams Phlebotomist Medical Lab Assistant Relationship Specialty Start Date End Date Roc Steele MD [address] [place] [address] PCP - General Internal Medicine 09/28/22 Roc Steele MD [address] [place] [id number] PCP - ACO Reach 08/30/23 Luis Felipe Dugan DO [address] [place] [address] Referring Physician Neurology 03/07/24 Raya Holt, RN [address] [place], [place] [address] Clinical Advocate Family Medicine 06/07/24 07/19/24 Gladis Laird LPN [address] [place] [address] 07/19/24 documented as of this encounter
--- OUTSIDE RECORDS SUMMARY | 2024-10-31 10:12 | XMS_ITS | Encounter Summary ---
Author Organization [facility] Address [address] [place] [address] Care Team Providers Care Hand Surgeon Name Role Phone Roc Steele MD Primary Care Provider [phone] Roc Steele MD Unavailable [phone] RitchieBulljulianojean-claude DO Unavailable [phone] Gladis Laird LPN Unavailable Encounter Details Date Type Department Care Team (Late st Contact Info) Description 08/20/2024 Abstract [facility] [address] [facility] 110 [place] [address] Roc Steele MD 112 [facility] 110 [place], [place] [address] Social History Tobacco Use Types Packs/Day Years [...] How often do you attend chur or sabianist services? Never 11/25/2022 Do you [...] Recorded Patient Health Questionnaire-2 Score 0 08/19/2024 [facility] of Occupat ional Health - [...] [facility] st Contact Info) Description 12/19/2024 3:00 PM EDT Procedure Visit [facility] PODIATRY 112 [facility] 120 [place] [address] Alex Tam DPRen 3006 [facility] 5 [place] [address] documented as of this encounter Visit Diagnoses Not on filedocumented in this encounter Additional Health Concerns Assessment Noted Time PHQ-9 Depression Total Score: 0 07/06/19 24 3:00 PM EST documented as of this encounter Care Teams Hand Surgeon Relationship Specialty Start Date End Date Roc Steele MD 112 [facility] 110 [place] [address] PCP - General Internal Medicine 09/28/22 Roc Steele MD [address] [place], [place] [address] PCP - ACO Reach 08/30/23 Luis Felipe Dugan DO [address] [place] [address] Referring Physician Neurology 03/07/24 Gladis Laird LPN [address] [place] [address] 07/19/24 documented as of this encounter
--- OUTSIDE RECORDS SUMMARY | 2024-10-31 10:12 | XMS_ITS | Encounter Summary ---
Author Organization [facility] Address [address] [place] [address] Care Team Providers Care Director Of Strategic Sales Name Role Phone Roc Steele MD Unavailable [phone] Roc Steele MD Primary Care Provider [phone] Roc Steele MD Unavailable [phone] Luis Felipe Dugan DO Unavailable [phone] Raya Holt RN Unavailable [phone] Gladis Laird LPN Unavailable Encounter Details Date Type Department Care Team (Late st Contact Info) Description 12/25/2022 Abstract [facility] PT [address] [facility] [address] [place] [address] Josue Mayer, PT [address] [facility] [address] [place] [address] Social History Tobacco Use Types Packs/Day Years [...] often do you attend chur ch or synagogue services? Never 11/25/2022 Do you belong to any clubs o r organizations such as gnosticist groups, unions, fraternal or athletic groups, or [...] and heating? Not hard at all 11/25/2022 [facility] of Occupat ional [...] Upcoming Encounters Date Type Department Care Team ([facility] Contact Info) Description 12/19/2024 3:00 PM EDT Procedure Visit [facility] PODIATRY [address] [facility] 120 [place] [address] Alex Tam DPM 3006 [facility] 5 [place] [address] documented as of this encounter Visit Diagnoses Not on filedocumented in this encounter Care Teams Director Of Strategic Sales Relationship Specialty Start Date End Date Roc Steele MD [address] [facility] [address] [place] [address] PCP - ACO Reach 09/22/22 06/29/23 Roc Steele MD [address] [facility] [address] [place], [place] [address] PCP - General Internal Medicine 09/28/22 Roc Steele MD [address] [facility] [address] [place], [place] [address] PCP - ACO Reach 08/30/23 Luis Felipe Dugan DO [address] [place] [address] Referring Physician Neurology 03/07/24 Raya Holt, RN [address] [place] [address] Clinical Advocate Family Medicine 06/07/24 07/19/24 Gladis Laird LPN [address] [facility] [address] [place] [address] 07/19/24 documented as of this encounter
--- OUTSIDE RECORDS SUMMARY | 2024-10-31 10:12 | XMS_ITS | Encounter Summary ---
Author Organization [facility] Address [address] [place] [address] Care Team Providers Care Manager Administration Name Role Phone Roc Steele MD Primary Care Provider [phone] Roc Steele MD Unavailable [phone] Luis Felipe Dugan DO Unavailable [phone] Gladis Laird LPN Unavailable Encounter Details Date Type Department Care Team (Late st Contact Info) Description 10/29/2024 Patient Outreach [facility] [address] [place] [address] Gladis Laird LPN [address] [place] [address] Social History Tobacco Use Types Packs/Day Years [...] often do you attend chur ch or congregation services? Never 11/25/2022 Do you belong to [...] Date Recorded Patient Health Questionnaire-2 Score 0 10/16/2024 [facility] of Occupat ional Health - [...] on file documented as of this encounter Progress Notes * Gladis Laird, LARRY - 10/29/2024 1:36 PM EDT Pts spouse called back for outreach. Machine Load Clerk spoke with pts spouse in beginning of phone call. Spouse then handed phone over to pt. Spouse states the is much better at talking on the phone than I am. Pt states her and spouse are not doing to good at this time. Informs chart writer that spouse had been in [facility] 10/24 and was sent home 10/25. He did not get any better so spouse had appt in thisoffice today. Diagnosed with cellulitis and Aarti Castillo BULK SEALER started spouse on antibiotic and he is to call if things worsen or don't improve after antibiotic completed. Pt states she just gets tired and winded easily. Pt shares she can't walk long without issues. She shares she recently had heartmonitor, stress test and EKG. She turned in heart monitor 10/21 and gets results of these tests from artillery meteorological man 11/15. Pt denies any needs at this time. Machine Load Clerk encouraged pt to call if any needs arise and if spouse does not improve. documented in this encounter Plan of Treatment Upcoming Encounters Date Type Department Care Team (Late st Contact Info) Description 12/19/2024 3:00 PM EDT Procedure Visit [facility] [address] [place] [address] Alex Tam, DPRen 3006 [facility] 5 [place] [address] documented as of this encounter Visit Diagnoses Diagnosis Paroxysmal supraventricular tachycardia (HCC)- Primary Paroxysmal supraventricular tachycardia Benign essential hypertension Essential hypertension, benign documented in this encounter Additional Health Concerns Assessment Noted Time PHQ-9 Depression Total Score: 0 07/06/19 3:00 PM EST documented as of this encounter Care Teams Manager Administration Relationship Specialty Start Date End Date Roc Steele MD [address] [place] [address] PCP - General Internal Medicine 09/28/22 Roc Steele MD [address] [place] [address] PCP - ACO Reach 08/30/23 Luis Felipe Dugan DO [address] [place] [address] Referring Physician Neurology 03/07/24 Gladis Laidr LPN [address] [place] [address] 07/19/24 documented as of this encounter
--- OUTSIDE RECORDS SUMMARY | 2024-10-31 10:12 | XMS_ITS | Encounter Summary ---
Author Organization [facility] Address [address] [place] [address] Care Team Providers Care Data Solutions Architect Name Role Phone Roc Steele MD Primary Care Provider [phone] Roc Steele MD Unavailable [phone] RitchieBulljulianojean-claude DO Unavailable [phone] Gladis Laird LPN Unavailable Encounter Details Date Type Department Care Team (Late st Contact Info) Description 10/01/2024 Abstract [facility] [address] [facility] 110 [place] [address] Roc Steele MD 112 [facility] 110 [place], [place] [id number] Social History Tobacco Use Types Packs/Day Years [...] How often do you attend chur or orthodoxy services? Never 11/25/2022 Do you belong to any clubs o r organizations such as islam groups, unions, fraternal or athletic groups, or [...] Recorded Patient Health Questionnaire-2 Score 0 08/19/2024 [facility] of Occupat ional Health - [...] [facility] PODIATRY 112 [facility] 120 [place] [id number] Alex Tam DPRen 3006 [facility] 5 [place] [address] documented as of this encounter Visit Diagnoses Not on filedocumented in this encounter Additional Health Concerns Assessment Noted Time PHQ-9 Depression Total Score: 0 07/06/19 24 3:00 PM EST documented as of this encounter Care Teams Data Solutions Architect Relationship Specialty Start Date End Date Roc Steele MD 112 [facility] 110 [place] [address] PCP - General Internal Medicine 09/28/22 Roc Steele MD [address] [place], [place] [id number] PCP - ACO Reach 08/30/23 Luis Felipe Dugan DO [address] [place] [address] Referring Physician Neurology 03/07/24 Gladis Laird LPN [address] [place] [address] 07/19/24 documented as of this encounter
--- OUTSIDE RECORDS SUMMARY | 2024-10-31 10:12 | XMS_ITS | Encounter Summary ---
Author Organization [facility] Address [address] [place] [address] Care Team Providers Care Road Crew Member Name Role Phone Roc Steele MD Primary Care Provider [phone] Roc Steele MD Unavailable [phone] Luis Felipe Dugan DO Unavailable [phone] Raya Holt RN Unavailable [phone] Gladis Laird LPN Unavailable Encounter Details Date Type Department Care Team (Late st Contact Info) Description 05/30/2024 Abstract [facility] 112 [facility] 110 [place] [address] Roc Steele MD 112 [facility] 110 [place], [place] [address] Social History Tobacco Use Types Packs/Day Years [...] Recorded Patient Health Questionnaire-2 Score 0 07/06/2023 [facility] of Occupat ionnc Health - Occupational Stress Questionnaire Answer Date [...] Upcoming Encounters Date Type Department Care Team ([facility] st Contact Info) Description 12/19/2024 3:00 PM EDT Procedure Visit [facility] 112 [facility] [address] [place] [address] Alex Tam DPM 3006 [facility] [address] [place] [address] documented as of this encounter Visit Diagnoses Not on filedocumented in this encounter Additional Health Concerns Assessment Noted Time PHQ-9 Depression Total Score: 0 07/06/19 24 3:00 PM EST documented as of this encounter Care Teams Road Crew Member Relationship Specialty Start Date End Date Roc Steele MD [address] [place] [address] PCP - General Internal Medicine 09/28/22 Roc Steele MD [address] [place] [id number] PCP - ACO Reach 08/30/23 Luis Felipe Dugan DO [address] [place] [address] Referring Physician Neurology 03/07/24 Raya Holt, RN [address] [place], [place] [id number] Clinical Advocate Family Medicine 06/07/24 07/19/24 Gladis Laird LPN [address] [place] [address] 07/19/24 documented as of this encounter
--- OUTSIDE RECORDS SUMMARY | 2024-10-31 10:12 | XMS_ITS | Encounter Summary ---
Author Organization [facility] Address [address] [place] [address] Care Team Providers Care Bingo Caller Name Role Phone Roc Steele MD Primary Care Provider [phone] Roc Steele MD Unavailable [phone] RitchieBulljulianojean-claude DO Unavailable [phone] Gladis Laird LPN Unavailable Encounter Details Date Type Department Care Team (Late st Contact Info) Description 09/18/2024 Abstract [facility] [address] [facility] 110 [place] [address] Roc Steele MD 112 [facility] 110 [place], [place] [id number] Social History Tobacco Use Types Packs/Day Years [...] How often do you attend chur or islam services? Never 11/25/2022 Do you belong to any clubs o r organizations such as mu-ism groups, unions, fraternal or athletic groups, or [...] Recorded Patient Health Questionnaire-2 Score 0 08/19/2024 [facility] of Occupat ional Health - Occupational [...] [facility] st Contact Info) Description 12/19/2024 3:00 PM EDT Procedure Visit [facility] 112 [facility] 120 [place] [address] Alex Tam DPRen 3006 [facility] 5 [place] [address] documented as of this encounter Visit Diagnoses Not on filedocumented in this encounter Additional Health Concerns Assessment Noted Time PHQ-9 Depression Total Score: 0 07/06/19 24 3:00 PM EST documented as of this encounter Care Teams Bingo Caller Relationship Specialty Start Date End Date Roc Steele MD 112 [facility] 110 [place] [address] PCP - General Internal Medicine 09/28/22 Roc Steele MD [address] [place], [place] [address] PCP - ACO Reach 08/30/23 Luis Felipe Dugan DO [address] [place] [address] Referring Physician Neurology 03/07/24 Gladis Laird LPN [address] [place] [address] 07/19/24 documented as of this encounter
--- OUTSIDE RECORDS SUMMARY | 2024-10-31 10:12 | XMS_ITS | Encounter Summary ---
Author Organization [facility] Address [address] [place] [address] Care Team Providers Care Operations Specialists Name Role Phone Roc Steele MD Unavailable [phone] Roc Steele MD Primary Care Provider [phone] Roc Steele MD Unavailable [phone] Luis Felipe Dugan DO Unavailable [phone] Raya Holt RN Unavailable [phone] Gladis Laird LPN Unavailable Encounter Details Date Type Department Care Team (Late st Contact Info) Description 11/23/2022 Orders Only [facility] [address] [place] [address] A, Unknown Practice [address] [place] [address] Social History Tobacco Use Types [...] often do you attend chur ch or scientologist services? Never 11/25/2022 Do you [...] Monthly or less 11/25/2022 10:39 AM EDT Lydia Anderson L PN Q2: How many drinks containing [...] CI PODIATRY 112 [facility] 120 [place] [address] Alex Tam DPM 2090 [facility] 5 [place] [address] documented as of this encounter Procedures Procedure [...] on filedocumented in this encounter Care Teams Operations Specialists Relationship Specialty Start Date End Date Roc Steele MD [address] [place] [address] PCP - ACO Reach 09/22/22 06/29/23 Roc Steele MD [address] [place] [address] PCP - General Internal Medicine 09/28/22 Roc Steele MD [address] [place] [address] PCP - ACO Reach 08/30/23 Luis Felipe Dugan DO [address] [place] [address] Referring Physician Neurology 03/07/24 Raya Holt, CARMEN [address] [place] [address] Clinical Advocate Family Medicine 06/07/24 07/19/24 Gladis Laird LPN [address] [place] [address] 07/19/24 documented as of this encounter
--- OUTSIDE RECORDS SUMMARY | 2024-10-31 10:12 | XMS_ITS | Encounter Summary ---
Author Organization [facility] Address [address] [place] [address] Care Team Providers Care Osteology Teacher Name Role Phone Roc Steele MD Primary Care Provider [phone] Roc Steele MD Unavailable [phone] Luis Felipe Dugan DO Unavailable [phone] Raya Holt RN Unavailable [phone] Gladis Laird LPN Unavailable Encounter Details Date Type Department Care Team (Late st Contact Info) Description 06/04/2024 Abstract [facility] [address] [facility] 110 [place] [address] Roc Steele MD 112 [facility] 110 [place], [place] [address] Social History Tobacco Use Types Packs/Day Years [...] [facility] of Occupat iontx Health - Occupational Stress Questionnaire Answer Date [...] Encounters Date Type Department Care Team ([facility] st Contact Info) Description 12/19/2024 3:00 PM EDT Procedure Visit [facility] 112 [facility] [address] [place] [address] Alex Tam DPM 3006 [facility] [address] [place] [address] documented as of this encounter Visit Diagnoses Not on filedocumented in this encounter Additional Health Concerns Assessment Noted Time PHQ-9 Depression Total Score: 0 07/06/19 24 3:00 PM EST documented as of this encounter Care Teams Osteology Teacher Relationship Specialty Start Date End Date Roc Steele MD [address] [place] [address] PCP - General Internal Medicine 09/28/22 Roc Steele MD [address] [place] [id number] PCP - ACO Reach 08/30/23 Luis Felipe Dugan DO [address] [place] [address] Referring Physician Neurology 03/07/24 Raya Holt, RN [address] [place], [place] [address] Clinical Advocate Family Medicine 06/07/24 07/19/24 Gladis Laird LPN [address] [place] [address] 07/19/24 documented as of this encounter
--- OUTSIDE RECORDS SUMMARY | 2024-10-31 10:12 | XMS_ITS | Encounter Summary ---
Author Organization [facility] Address [address] [place] [address] Care Team Providers Care Rolls Mill Operator Name Role Phone Rco Steele MD Unavailable [phone] Roc Steele MD Primary Care Provider [phone] Roc Steele MD Unavailable [phone] Luis Felipe Dugan DO Unavailable Raya Holt RN Unavailable Gladis Laird LPN Unavailable Encounter Details Date Type Department Care Team (Late Contact Info) Description 11/14/2022 Orders Only [facility] [address] [place] [address] Aarti Castillo, LEGEND MAKER [address] [place] [address] Social History Tobacco Use Types Packs/Day Years [...] CI PODIATRY [address] [place] [address] Alex Tam DPM 3006 [facility] [address] [place] [address] documented as of this encounter Procedures Procedure Name Priority Date/Time Associated Diagnosis Comments HOME SLEEP TEST Routine 11/04/2022 8:25 AM EDT documented in this encounter Results * Home sleep test (11/04/2022 8:25 AM EDT) us Aarti M [facility] ORDERABLES Maggi l Result documented in this encounter Visit Diagnoses Not on filedocumented in this encounter Care Teams Rolls Mill Operator Relationship Specialty Start Date End Date Roc Steele MD [address] [place] [address] PCP - ACO Reach 09/22/22 06/29/23 Roc Steele MD [address] [place] [address] PCP - General Internal Medicine 09/28/22 Roc Steele MD [address] [place] [address] PCP - ACO Reach 08/30/23 Luis Felipe Dugan DO [address] [place] [address] Referring Physician Neurology 03/07/24 Raya Holt, CARMEN [address] [place] [address] Clinical Advocate Family Medicine 06/07/24 07/19/24 Gladis Laird LPN [address] [place] [address] 07/19/24 documented as of this encounter
--- OUTSIDE RECORDS SUMMARY | 2024-10-31 10:12 | XMS_ITS | Encounter Summary ---
Author Organization [facility] Address [address] [place] [address] Care Team Providers Care Ep Technologist Name Role Phone Roc Steele MD Primary Care Provider [phone] Roc Steele MD Unavailable [phone] RitchieBulljulianojean-claude DO Unavailable [phone] Gladis Laird LPN Unavailable Encounter Details Date Type Department Care Team (Late st Contact Info) Description 08/07/2024 Abstract [facility] [address] [facility] 110 [place] [address] Roc Steele MD 112 [facility] 110 [place], [place] [address] Social History Tobacco Use Types Packs/Day Years [...] How often do you attend chur or episcopalian services? Never 11/25/2022 Do you belong to [...] Recorded Patient Health Questionnaire-2 Score 0 08/01/2024 [facility] of Occupat ional [...] Procedure Visit [facility] 112 [facility] 120 [place] [address] Alex Tam DPRen 3006 [facility] 5 [place] [address] documented as of this encounter Visit Diagnoses Not on filedocumented in this encounter Additional Health Concerns Assessment Noted Time PHQ-9 Depression Total Score: 0 07/06/19 24 3:00 PM EST documented as of this encounter Care Teams Ep Technologist Relationship Specialty Start Date End Date Roc Steele MD 112 [facility] 110 [place] [address] PCP - General Internal Medicine 09/28/22 Roc Steele MD [address] [place], [place] [address] PCP - ACO Reach 08/30/23 Luis Felipe Dugan DO [address] [place] [address] Referring Physician Neurology 03/07/24 Gladis Laird LPN [address] [place] [address] 07/19/24 documented as of this encounter
--- OUTSIDE RECORDS SUMMARY | 2024-10-31 10:12 | XMS_ITS | Clinical Summary ---
Author Organization [facility] Address [address] [place] [address] Phone Care Team Providers Care Science Analyst Name Role Phone Roc Steele MD Primary Care Provider [phone] Allergies Active Allergy Reactions Criticality Noted Date Comments Moxifloxacin Angioedema 07/15/2024 Ciprofloxacin Unknown 07/15/2024 Sulfa (Sulfonamide Antibiotics) Unknown 06/29 Medications HYDROcodone-acetamin ophen ([place]) 5-325 mg tablet Take 1 tablet by [...] Description 09/19/2024 1:00 PM EDT Ancillary Procedure [address] [phone] Paroxysmal supraventricular tachycardia; Abnormal EKG; Lightheadedness; Chest discomfort; Palpitations 09/19/2024 11:24 AM EDT - 09/19/2024 11:59 PM EDT Hospital Encounter [address] [phone] Discharge Disposition: Home 09/19/2024 11:24 AM EDT - 09/19/2024 11:59 PM EDT Hospital Encounter [address] [phone] Discharge Disposition: Home 09/19/2024 Travel 09/19/[address] [phone] Hina Bangura RN 09/19/[address] [phone] Hina Bangura RN Error (VOID this visit) 09/18/2024 10:16 AM EDT - 09/18/2024 11:59 PM EDT Hospital Encounter [facility] [address] [phone] Discharge Disposition: Home 09/18/2024 10:16 AM EDT - 09/18/2024 11:59 PM EDT Hospital Encounter [address] [phone] Discharge Disposition: Home 09/18/2024 10:16 AM EDT - 09/18/2024 11:59 PM EDT Hospital Encounter [facility] [address] [phone] Paroxysmal supraventricular tachycardia; Abnormal EKG; Palpitations Discharge Disposition: Home 09/18/2024 10:15 AM EDT Hospital Encounter [address] [phone] Lightheadedness; Chest discomfort; Palpitations; Mixed hyperlipidemia Discharge Disposition: Home 09/18/2024 Travel from Last 3 Months Family History Medical [...] Description 2024 2:15 PM EDT Office Visit [facility] [address] [facility] [address] [place] [address] Rc Kern MD [address] [facility] [address] [place] [address] Health Maintenance Due Date Last Done Comments Hepatitis C Screening 1963 CKD: Urine Protein Screening 1965 DTaP/Tdap/Td Vaccines (1 - Tdap) 1968 Creatinine Level 01/29/2021 01/30/2020, 01/20/2020 Diabetes Screening 01/29/2021 01/30/2020, 01/20/2020 Potassium Level 01/29/2021 01/30/2020, 01/20/2020 RSV High Risk: (Elderly (60+) or Population) (1 - 1-dose 75+ series) 2021 COVID-19 Vaccine ( - season) 2023 06/09/2023, 03/31/2022 Medicare Annual [...] age to complete this topic HPV Vaccines (No Doses Required) Completed Hepatitis A Vaccines Aged Out No long [...] Sigmoidoscopy Discontinued Medical Devices Implanted Type Area Auditor Supervisor Device Identifier Shelf Expiration Date Model / Serial / Lot Screw, Low Profile Hex, 6.5 X 15 Mm Case [id number] Implanted:Qty: 1 on 01/29/2020 by Micah Bird MD Implant Right: Hip HELENA Garpun 06/30/2023 [id number] / / 5MM Description:Converted from [facility]. Please see archived information for full log information. Screw, Low Profile Hex, 6.5 X 25 Mm Case [id number] Implanted:Qty: 1 on 01/29/2020 by Micah Bird MD Implant Right: Hip HELENA Garpun 06/01/2024 [id number] / / [id number] Description:Converted from [facility]. Please see archived information for full log information. Head, Femur V40 36mm +2.5mm Biolox Delta Case [id number] Implanted:Qty: 1 on 01/29/2020 by Micah Bird MD Joint Right: Hip HELENA Garpun 11/29/2024 [id number] / / [id number] Description:Converted from [facility]. Please see archived information for full log information. Stem, Femur 132d Sz 5 Accolade Ii Case [id number] Implanted:Qty: 1 on 01/29/2020 by Micah Bird MD Joint Right: Hip HELENA Garpun 09/29/2024 [id number] / / [id number] Description:Converted from [facility]. Please see archived information for full log information. Shell, Trident Ii, Clusterhole, [place] 52e Case [id number] Implanted:Qty: 1 on 01/29/2020 by Micah Bird MD Joint Right: Hip HELENA Garpun 06/30/2023 [id number] / / [id number] Description:Converted from [facility]. Please see archived information for full log information. Liners, Poly 36 X 10 D Trid Crossfire E Case [id number] Implanted:Qty: 1 on 01/29/2020 by Micah Bird MD Joint Right: Hip HELENA Garpun 10/30/2023 [id number] / / [id number] Description:Converted from [facility]. Please see archived information for full log information. Procedures Procedure Name Priority Date/Time Associated Diagnosis Comments STRESS TEST, REGADENOSON W MYOCARDIAL PERFUSION SPECT (MULTI STUDY) Routine 09/19/2024 12:50 PM EDT Lightheadedness Chest discomfort Palpitations Mixed hyperlipidemia TRANSTHORACIC ECHO (TTE) COMPLETE Routine 09/18/2024 11:39 AM EDT Paroxysmal supraventricular tachycardia Abnormal EKG Palpitations BASIC METABOLIC PANEL Routine 01/30/2020 5:25 AM [...] David Castle 09/19/2024 3:00 PM Dictation workstation: [id number] Narrative 09/19/2024 3:00 PM EDT Interpreted By: David Castle, and Jett Inman STUDY: MYOCARDIAL PERFUSION STRESS TEST WITH LEXISCAN Performing facility: [facility], [address] [place] [address], [address], [place] [address] [facility] Provider: Rc Kern MD, FACC [...] Denies smoking. COMPARISON: No comparison. ACCESSION NUMBER(S): [id number] ORDERING CLINICIAN: RC KERN TECHNIQUE: TWO DAY [...] PERFUSION STRESS TEST WITH LEXISCAN Performing facility: [facility], [address] [place] [address], [address], [place] [id number] [facility] Provider: Rc Kern MD, FACC PCP: Dr. Madelyn Steele Supervising provider: David Castle MD, [facility] INDICATION: Signs/Symptoms:abn ekg, cp, dizziness, m hld. ,R42 Dizziness and giddiness,R07.89 Other chest pain,R00.2 Palpitations,E78.2 Mixed hyperlipidemia HISTORY: Gender: F; Age: 78 y/o ; Height: HT 162.6 cm cm; Weight: WT 122.018 kg kg. Abnormal EKG; High Cholesterol; HTN; Palpitations; Chest Pain; Denies smoking. COMPARISON: No comparison. ACCESSION NUMBER(S): [id number] ORDERING CLINICIAN: RC KERN TECHNIQUE: TWO DAY [...] David Castle 09/19/2024 3:00 PM Dictation workstation: [id number] Rc Kern MD CV STRESS PROCEDURES Final [...] Narrative SYNGO - 09/18/2024 6:10 PM EDT [address], [address] [address] TRANSTHORACIC ECHOCARDIOGRAM REPORT Patient Name: USHA Deal Physician: [id number] David Castle MD, [facility] Study Date: 09/18/2024 Ordering Provider: [id number] RC KERN MRN/PID: [id number] Fellow: Nurse: Date of /Age: 7 1945 Business Intelligence Manager: Viry ely RDCS, RVT Gender Assigned at F Additional Staff: : Height: 162.56 cm Admit Date: Weight: 122.02 kg Admission Status: Outpatient BSA / BMI: 2.22 m2 / 46.17 Department Location: [facility] kg/[address] Blood Pressure: 124 /86 mmHg Study Type: TRANSTHORACIC ECHO (TTE) COMPLETE Diagnosis/ICD: Supraventricular tachycardia-I47.1; Abnormal electrocardiogram [ECG] [EKG]-R94.31; Palpitations-R00.2 Indication: Edema, HTN, Hyperlipidemia, Carotid Stenosis, CARO, CKD-Stage III, Morbid Obesity CPT Codes: Echo Complete w Full Doppler-[id number] Study Detail: The following Echo studies were [...] (0.6-0.9m/s) AORTA: Asc Ao Diam 2.66 cm [id number] David Castle MD, [facility] Electronically signed on 09/18/2024 at 6:10:05 PM Final Procedure Note David Castle MD - 09/18/[address], [address] [place] [address] TRANSTHORACIC ECHOCARDIOGRAM REPORT Patient Name: USHA Deal Physician: [id number] Castle MD,FAC Study Date: 09/18/2024 Ordering Provider: [id number] KERN MRN/PID: [id number] Fellow: Nurse: Date of /Age: 7 1945 Business Intelligence Manager: David ely RDCS, RVT Gender Assigned at F Additional Staff: : Height: 162.56 cm Admit Date: Weight: 122.02 kg Admission Status: Outpatient BSA / BMI: 2.22 m2 / 46.17 [facility] [place] Blood Pressure: 124 /86 mmHg Study Type: TRANSTHORACIC ECHO (TTE) COMPLETE Diagnosis/ICD: Supraventricular tachycardia-I47.1; Abnormalelectrocardiogram [ECG] [EKG]-R94.31; Palpitations-R00.2 Indication: Edema, HTN, Hyperlipidemia, Carotid Stenosis, CARO,CKD-Stage III, Morbid Obesity CPT Codes: Echo Complete w Full Doppler-[id number] Study Detail: The following Echo studies were [...] (0.6-0.9m/s) AORTA: Asc Ao Diam 2.66 cm [id number] David Castle MD, [facility] Electronically signed on 09/18/2024 at 6:10:05 PM Final Rc Kern MD CV ECHO PROCEDURES Final Result SYNGO * (ABNORMAL) Basic Metabolic Panel (01/30/2020 5:25 AM EDT) Glucose 128(H) 74 - 99 mg/dL [facility] Sodium 137 136 - 145 mmol/L [facility] Potassium 4.2 3.5 - 5.3 mmol/L [facility] Chloride 101 98 - 107 mmol/L [facility] Bicarbonate 32 21 - 32 mmol/L [facility] Anion Gap 8(L) 10 - 20 mmol/L [facility] Urea Nitrogen 14 6 - 23 mg/dL [facility] Creatinine 1.00 0.50 - 1.05 mg/dL [facility] GLOMERULAR FILTRATION RATE-NON 54(A) >60 mL/min/1.7 3m2 [facility] GLOMERULAR FILTRATION RATE- 65 >60 mL/min/1.7 3m2 [facility] Comment: CALCULATIONS OF ESTIMATED GFR ARE PERFORMED USING THE MDRD STUDY EQUATION FOR THE IDMS-TRACEABLE CREATININE METHODS. CLIN CHEM 2007;53:766-72 Calcium 8.8 8.6 - 10.3 mg/dL [facility] 01/30/2020 5:25 AM EDT 01/30/2020 6:26 AM EDT us Micah Bird MD LAB BLOOD ORDERABLES Final Res ult [facility] from Last 3 Months or Most Recently Relevant to Health Maintenance Insurance GENERIC COMMERCIAL MEDICARE PART A AND B GENERIC COMMERCIAL MEDICARE PART A AND B Care Teams Science Analyst Relationship Specialty Start Date End Date Roc Steele MD [address] [facility] [address] [place] [address] PCP - General 10/04/22
--- OUTSIDE RECORDS SUMMARY | 2024-10-31 10:12 | XMS_ITS | Clinical Summary ---
Author Organization [facility] Address [address] [place] [address] Care Team Providers Care Truck Rental Manager Name Role Phone Roc Steele MD Primary Care Provider [phone] Roc Steele MD Unavailable [phone] Luis Felipe Dugan DO Unavailable [phone] Gladis Laird LPN Unavailable Allergies Active Allergy Reactions Criticality Noted [...] chewable tablet Take by oral route. Active ALPRAZolam (Xanax) 0.25 MG tabletIndications :Anxiety Take 1 tablet (0.25 mg) by mouth 2 (two) times a day as needed for anxiety 60 tablet 11/30/19 24 Active furosemide (Lasix) 20 MG tabletIndications :Cardiomegaly,Chr onic congestive heart failure, unspecified heart failure type (HCC) Take 1 tablet (20 mg) by mouth Daily 90 tablet 3 07/19/19 25 2025 Active albuterol HFA (Ventolin HFA) 90 mcg/act inhalerIndication s:SOB (shortness of breath),Chronic cough Inhale 2 puffs every 4 (four) hours if needed for wheezing or shortness of breath (cough) 54 g 08/02/19 25 2025 Active fexofenadine (Radha) 180 MG tabletIndications :Seasonal allergic rhinitis, unspecified trigger Take 1 tablet (180 mg) by mouth Daily as needed (alleriges) 90 tablet 3 08/02/19 25 2025 Active denosumab (Prolia) 60 MG/ML solution prefilled syringeIndication s:Age-related osteoporosis without current pathological fracture Inject 1 mL (60 mg) under the [...] bedtime. 200 capsule 3 10/03/19 25 Active tiZANidine (Zanaflex) 4 MG tabletIndications :Primary insomnia TAKE 1 TABLET BY MOUTH EVERY 8 HOURS NEEDED 270 tablet 10/08/19 25 Active meloxicam (Mobic) 15 MG tabletIndications :Primary osteoarthritis involving multiple joints TAKE 1 TABLET BY MOUTH ONCE DAILY 90 tablet 3 10/11/19 25 Active metoprolol succinate XL (Toprol-XL) 50 MG 24 hr tabletIndications :Benign essential hypertension TAKE 1 TABLET BY MOUTH IN THE MORNING AND 1 TABLET BY MOUTH BEFORE BEDTIME 180 tablet 3 10/11/19 25 Active nortriptyline (Pamelor) 10 MG capsuleIndication s:Primary insomnia,Anxiety TAKE 3 CAPSULES BY MOUTH AT BEDTIME ONCE DAILY 270 capsule 3 10/11/19 25 Active simvastatin (Zocor) 10 MG tabletIndications :Hyperlipidemia, unspecified hyperlipidemia type TAKE 1 TABLET BY MOUTH ONCE DAILY 90 tablet 3 10/11/19 25 Active HYDROcodone-aceta minophen (Lamy) 5-325 MG tabletIndications :Lumbosacral spondylosis without myelopathy Take 1 tablet by mouth every 4 (four) hours if needed for moderate pain or severe pain 180 tablet 10/19/19 25 2024 Active gabapentin (Neurontin) 300 MG capsuleIndication s:Acute low back pain without sciatica, unspecified back pain laterality TAKE 1 CAPSULE BY MOUTH TWICE DAILY 200 capsule 3 08/08/19 24 2024 Discontinued simvastatin (Zocor) 10 MG tabletIndications :Hyperlipidemia, unspecified hyperlipidemia type TAKE 1 TABLET BY MOUTH ONCE DAILY 100 tablet 3 09/13/19 24 2024 Discontinued meloxicam (Mobic) 15 MG tabletIndications :Primary osteoarthritis involving multiple joints TAKE 1 TABLET BY MOUTH ONCE DAILY 100 tablet 3 09/13/19 24 2024 Discontinued nortriptyline (Pamelor) 10 MG capsuleIndication s:Primary insomnia,Anxiety TAKE 3 CAPSULES BY MOUTH AT BEDTIME ONCE DAILY 270 capsule 3 10/26/19 24 2024 Discontinued tiZANidine (Zanaflex) 4 MG tabletIndications :Primary insomnia TAKE 1 TABLET BY MOUTH EVERY 8 HOURS NEEDED 270 tablet 04/16/20 24 2024 Discontinued metoprolol succinate XL (Toprol-XL) 50 MG 24 hr tabletIndications :Benign essential hypertension Take 1 tablet (50 mg) by mouth in the morning and 1 tablet (50 mg) before bedtime. 90 tablet 3 05/22/19 25 2024 Discontinued HYDROcodone-aceta minophen (Lamy) 5-325 MG tabletIndications :Lumbosacral spondylosis without myelopathy Take 1 tablet by mouth every 4 (four) hours if needed for moderate pain or severe pain 180 tablet 08/02/19 25 2024 Discontinued(R eoradha) Active Problems Problem Noted Date Diagnosed Date [...] 09/30/2022 Osteopenia 09/30/2022 Paroxysmal supraventricular tachycardia 10/01/19 Primary osteoarthritis of right hip 09/30/2022 Recurrent falls 09/30/2022 Vitamin D deficiency 09/30/2022 Encounters Date Type Department Care Team Description 10/29/2024 Patient Outreach [facility] [address] [place] [address] Gladis Laird LPN 10/16/2024 11:30 AM EDT Office Visit [facility] [address] [place] [address] [place] [address] Aarti Castillo NP Acute low back pain without sciatica, unspecified back pain laterality (Primary Dx) 10/16/2024 Refill [facility] [address] [place] [address] [place] [address] Roc Steele MD Lumbosacral spondylosis without myelopathy 10/16/2024 Bamboo flowsheet [facility] [address] [place] [address] [place] [address] Aarti Castillo NP 10/16/2024 Travel 10/10/2024 3:00 PM EDT Procedure Visit [facility] [address] [place] [address] [place] [address] Alex Tam, DPM Pain due to onychomycosis of toenails of both feet (Primary Dx) 10/10/2024 Travel 10/10/2024 Refill [facility] [address] [facility] [address] [place] [address] Roc Steele MD Primary insomnia; Anxiety; Hyperlipidemia, unspecified hyperlipidemia type 10/10/2024 Refill [facility] [address] [facility] [address] [place] [address] Aarti Castillo NP Primary osteoarthritis involving multiple joints; Benign essential hypertension 10/07/2024 Refill [facility] [address] [facility] [address] [place] [address] Aarti Castillo NP Primary insomnia 10/02/2024 Refill [facility] [address] [facility] [address] [place] [address] Aarti Castillo NP Acute low back pain without sciatica, unspecified back pain laterality 10/01/2024 Clinisync Result Encounter [facility] Department Unsolicited Provider, Generic External Data 10/01/2024 Abstract [facility] [address] [facility] [address] [place] [address] Roc Steele MD 09/18/2024 Abstract [facility] [address] [facility] [address] [place] [address] Roc Steele MD 09/10/2024 Refill [facility] [address] [facility] [address] [place] [address] Aarti Castillo, DEISY Primary insomnia 09/10/2024 Refill [facility] [address] [facility] [address] [place] [address] Roc Steele MD Gastroesophageal reflux disease with esophagitis without hemorrhage 08/28/2024 Patient Outreach [facility] [place] [phone] Gladis Laird LPN 08/20/2024 Abstract [facility] [address] [facility] [address] [place] [address] Roc Steele MD 08/20/2024 Abstract [facility] [address] [facility] [address] [place] [address] Roc Steele MD 08/19/2024 11:15 AM EDT Office Visit [facility] [address] [facility] [address] [place] [address] Roc Steele MD Age-related osteoporosis without current pathological fracture (Primary Dx); Osteopenia of both hips; Chronic cough 08/19/2024 Travel 08/19/2024 Abstract [facility] [address] [facility] [address] [place] [address] Roc Steele MD 08/07/2024 Abstract [facility] [address] [facility] [address] [place] [address] Roc Steele MD 08/01/2024 2:30 PM EDT Procedure Visit [facility] [address] [facility] [address] [place] [address] Alex Tam DPRen Pain due to onychomycosis of toenails of both feet (Primary Dx) 08/01/2024 1:30 PM EDT Office Visit [facility] [address] [facility] [address] [place] [address] Aarti Castillo NP SOB (shortness of breath) (Primary Dx); Chronic cough; Lumbosacral spondylosis without myelopathy; Seasonal allergic rhinitis, unspecified trigger; Age-related osteoporosis without current pathological fracture 08/01/2024 Bamboo flowsheet [facility] [address] [facility] [address] [place] [address] Aarti Castillo, MUSEUM ATTENDANT 08/01/2024 Travel from Last 3 Months Immunizations Immunization [...] week 11/25/2022 How often do you attend [facility] or [facility] services? Never 11/25/2022 Do you [...] Recorded Patient Health Questionnaire-2 Score 0 10/16/2024 [facility] [...] Sign Reading Time Taken Comments Blood Pressure 182/101 10/16/2024 11:33 AM EDT Pulse 77 10/16/2024 11:33 AM EDT Temperature - - Respiratory Rate 17 10/16/2024 11:33 AM EDT Oxygen Saturation 96% 10/16/2024 11:33 AM EDT Inhaled Oxygen Concentration - - Weight 120 kg (265 lb) 10/16/2024 11:33 AM EDT Height 157.5 cm (5' 2 ) 10/16/2024 11:33 AM EDT Body Mass Index 48.47 10/16/2024 11:33 AM EDT Plan of Treatment Upcoming Encounters Date Type Department Care Team ([facility] Contact Info) Description 12/19/2024 3:00 PM EDT Procedure Visit [facility] [address] [facility] [address] [place] [address] Alex Tam DPM [address] [facility] 5 [place] [address] Health Maintenance Due Date Last Done Comments Influenza Vaccine (#1) 2024 4, 03/01/2023, 03/23/2022, Additional history exists Colonoscopy Discontinued 10/31/2012 Colorectal Cancer Screening Discontinued Pneumococcal Vaccine: 65+ Years Completed 5, 12/11/2013 CT Colonography Discontinued FIT-DNA Discontinued FIT Discontinued FOBT Discontinued Sigmoidoscopy Discontinued Procedures Procedure Name Priority Date/Time Associated Diagnosis Comments MR LUMBAR SPINE WO CON 10/01/2024 2:34 PM EDT COLONOSCOPY Routine 10/31/2012 12:00 PM EDT from Last 3 Months or Most Recently Relevant to Health Maintenance Results * MR LUMBAR SPINE WO CON (10/01/2024 2:34 PM EDT) Anatomical Region Laterality Modality Other 10/01/2024 2:34 PM EDT Narrative 10/01/2024 2:37 [place] [address] Magnetic Resonance Report Signed Patient: USHA WALKER MR#: [id number] : 1945 Acct:[id number] Age/Sex: 78 / F ADM Date: 10/01/24 Loc: MRI Attending Dr: Ml Sanchez M.D. Ordering Physician: Ml Sanchez M.D. Date of Service: 10/01/24 Procedure(s): MR lumbar spine wo con Accession Number(s): [id number] cc: ROC STEELE ; Ml Sanchez M.D. [place] [id number] Patient Name: USHA WALKER MRN: [id number] date: 1945 Sex: F Assigned Patient Location: MRI Current Patient Location: MRI Accession/Order Number: [id number] Exam Date: 10/01/2024 14:28 Report Date: 10/01/2024 [...] Bach M.D. 10/01/2024 2:34 PM Dictation Location: [place] [address] Electronically authenticated by: [id number] Y Date: 10/01/2024 14:34 Dictated By: Sj Bach M.D. Signed By: 10/01/24 1437 DD/ 1434 TD/TT: Bill Poster Installer: Procedure Note Radiology, Radiologist, - 10/01/2024 The [place] [id number] Magnetic Resonance Report Signed Patient: USHA WALKER KMR#: [id number] : 7Acct:[id number] Age/Sex: 78 / FADM Date: 10/01/24 Loc: MRI Attending Dr: Ml Sanchez M.D. Ordering Physician: Ml Sanchez M.D. Date of Service: 10/01/24 Procedure(s): MR lumbar spine wo con Accession Number(s): [id number] cc: ROC STEELE ; Ml Sanchez M.D. The [address] [address] Patient Name: USHA WALKER MRN: [id number] date: 1945 Sex: F Assigned Patient Location: MRI Current Patient Location: MRI Accession/Order Number: [id number] Exam Date: 10/01/2024 14:28 Report Date: 10/01/2024 [...] Bach M.D. 10/01/2024 2:34 PM Dictation Location: [place] [address] Electronically authenticated by: [id number] Y Date: 4:34 Dictated By: Sj Bach M.D. Signed By:10/01/24 1437 DD/ 1434 TD/TT: Bill Poster Installer: us Generic External Data Provider [facility] Final Result * Colonoscopy (10/31/2012 12:00 PM EDT) Anatomical Region Laterality Modality Endoscopy 10/31/2012 12:0 0 PM EDT Narrative 10/31/2012 12:00 PM EDT PERFORMED AT [facility] LOCATION:[id number] DIVERTICULOSIS Procedure Note CONVERSION, GENERIC - 09/15/2022 PERFORMED AT [facility] LOCATION:[id number] DIVERTICULOSIS Roc Steele MD ENDOSCOPY PROCEDURE ORDERABLES Final Result from Last 3 Months or Most Recently Relevant to Health Maintenance Insurance [facility] MEDICARE Care Teams Truck Rental Manager Relationship Specialty Start Date End Date Roc Steele MD [address] [facility] [address] [place] [address] PCP - General Internal Medicine 09/28/22 Roc Steele MD [address] [facility] [address] [place] [address] PCP - ACO Reach 08/30/23 Luis Felipe Dugan DO [address] [place] [address] Referring Physician Neurology 03/07/24 Gladis Laird LPN [address] [facility] [address] [place] [address] (work) 07/19/24
--- OUTSIDE RECORDS SUMMARY | 2024-10-31 10:12 | XMS_ITS | Encounter Summary ---
Author Organization [facility] Address [address] [place] [address] Phone Care Team Providers Care Manager Golf Name Role Phone Roc Steele MD Primary Care Provider [phone] Encounter Details Date Type Department Care Team (Late st Contact Info) Description 07/03/2024 Scanned Document [facility] [address] [place] [id number] Scanning, Generic Provider Social History Tobacco Use [...] [facility] [address] [facility] [address] [place] [address] Amber Hawley MD [address] [facility] [address] [place] [address] documented as of this encounter Visit Diagnoses Not on filedocumented in this encounter Care Teams Manager Golf Relationship Specialty Start Date End Date Roc Steele MD [address] [facility] [address] [place] [address] PCP - General 10/04/22 documented as of this encounter
--- OUTSIDE RECORDS SUMMARY | 2024-10-31 10:12 | XMS_ITS | Encounter Summary ---
Author Organization [facility] Address [address] [place] [address] Care Team Providers Care Hedge Fund Accountant Name Role Phone Roc Steele MD Primary Care Provider [phone] Roc Steele MD Unavailable [phone] RitchieBulljulianojean-claude DO Unavailable [phone] Gladis Laird LPN Unavailable Encounter Details Date Type Department Care Team (Late st Contact Info) Description 08/19/2024 Abstract [facility] [address] [facility] 110 [place] [address] Roc Steele MD 112 [facility] 110 [place], [place] [id number] Social History Tobacco Use Types Packs/Day Years [...] Recorded Patient Health Questionnaire-2 Score 0 08/19/2024 [facility] of Occupat ional Health - [...] EDT Procedure Visit [facility] 112 [facility] 120 [place] [address] Alex Tam DPM 8783 [facility] 5 [place] [address] documented as of this encounter Visit Diagnoses Not on filedocumented in this encounter Additional Health Concerns Assessment Noted Time PHQ-9 Depression Total Score: 0 07/06/19 24 3:00 PM EST documented as of this encounter Care Teams Hedge Fund Accountant Relationship Specialty Start Date End Date Roc Steele MD [address] [facility] 110 [place] [address] PCP - General Internal Medicine 09/28/22 Roc Steele MD [address] [facility] [facility] 110 [place] [address] PCP - ACO Reach 08/30/23 Luis Felipe Dugan DO [address] [place] [address] Referring Physician Neurology 03/07/24 Gladis Laird LPN [address] [facility] 110 [place] [address] 07/19/24 documented as of this encounter
--- OUTSIDE RECORDS SUMMARY | 2024-10-31 10:12 | XMS_ITS | Encounter Summary ---
Author Organization [facility] Address [address] [place] [address] Care Team Providers Care Applied Researcher Name Role Phone Roc Steele MD Primary Care Provider [phone] Roc Steele MD Unavailable [phone] RitchieReji jimenezjean-claude DO Unavailable [phone] Gladis Laird LPN Unavailable Reason for Visit * Reason Onset Date Comments Med Refill 10/16/2024 Encounter Details Date Type Department Care Team (Late st Contact Info) Description 10/16/2024 Refill [facility] [address] [facility] [facility] 110 [place] [address] Roc Steele MD [address] [facility] 110 [place], [place] [id number] Lumbosacral spondylosis without myelopathy Social History Tobacco Use Types Packs/Day Years [...] any clubs o r organizations such as quaker groups, unions, fraternal or athletic groups, or [...] Recorded Patient Health Questionnaire-2 Score 0 10/16/2024 [facility] of Occupat ional Health - Occupational Stress [...] pleasure in doing things Not at all 10/16/2024 11:23 AM [place] Feeling down, depressed, or hopeless Not at all 09/29 11:23 AM [place] Patient Health Questionnaire-2 Score 0 09/29 11:23 AM [place] documented as of this encounter Miscellaneous Notes * Telephone Encounter - Alpa Maciasbraulio - 10/17/2024 3:12 PM EDT Usha was seen yesterday called stating that her medication was not sent in yet. Please send meds to [facility] in [place] documented in this encounter Plan of Treatment Upcoming Encounters Date Type Department Care Team ([facility] Contact Info) Description 12/19/2024 3:00 PM EDT Procedure Visit [facility] [address] [facility] 120 [place] [address] Alex Tam, DPRen 3006 [facility] 5 [place] [address] documented as of this encounter Visit Diagnoses Diagnosis Lumbosacral spondylosis without myelopathy documented in this encounter Additional Health Concerns Assessment Noted Time PHQ-9 Depression Total Score: 0 07/06/19 3:00 PM EST documented as of this encounter Care Teams Applied Researcher Relationship Specialty Start Date End Date Roc Steele MD [address] [facility] 110 [place] [address] PCP - General Internal Medicine 09/28/22 Roc Steele MD [address] [facility] [address] [place] [address] PCP - ACO Reach 08/30/23 Luis Felipe Dugan DO [address] [place] [address] Referring Physician Neurology 03/07/24 Gladis Laird LPN [address] [facility] 110 [place] [address] 07/19/24 documented as of this encounter
--- OUTSIDE RECORDS SUMMARY | 2024-10-31 10:12 | XMS_ITS | Encounter Summary ---
Author Organization [facility] Address [address] [place] [address] Care Team Providers Care Assembly Lead Person Name Role Phone Roc Steele MD Primary Care Provider [phone] Roc Steele MD Unavailable [phone] Luis Felipe Dugan DO Unavailable [phone] Raya Holt RN Unavailable [phone] Gladis Laird LPN Unavailable Encounter Details Date Type Department Care Team (Late st Contact Info) Description 05/07/2024 Abstract [facility] 112 [facility] 110 [place] [address] Roc Steele MD 112 [facility] 110 [place], [place] [id number] Social History Tobacco Use Types Packs/Day Years [...] any clubs o r organizations such as anabaptist groups, unions, fraternal or athletic groups, or [...] Recorded Patient Health Questionnaire-2 Score 0 07/06/2023 [facility] of Occupat ionma Health - Occupational Stress [...] Upcoming Encounters Date Type Department Care Team ([facility] st Contact Info) Description 12/19/2024 3:00 PM EDT Procedure Visit [facility] 112 [facility] 120 [place] [address] Alex Tam DPM 3006 [facility] [address] 5 [place] [address] documented as of this encounter Visit Diagnoses Not on filedocumented in this encounter Additional Health Concerns Assessment Noted Time PHQ-9 Depression Total Score: 0 07/06/19 24 3:00 PM EST documented as of this encounter Care Teams Assembly Lead Person Relationship Specialty Start Date End Date Roc Steele MD [address] [place] [address] [place] [address] PCP - General Internal Medicine 09/28/22 Roc Steele MD [address] [place] [address] [place] [id number] PCP - ACO Reach 08/30/23 Luis Felipe Dugan DO [address] [place] [address] Referring Physician Neurology 03/07/24 Raya Holt, RN [address] [place], [place] [id number] Clinical Advocate Family Medicine 06/07/24 07/19/24 Gladis Laird LPN [address] [place] [address] [place] [address] 07/19/24 documented as of this encounter
--- OUTSIDE RECORDS SUMMARY | 2024-10-31 10:12 | XMS_ITS | Encounter Summary ---
Author Organization [facility] Address [address] [place] [address] Care Team Providers Care Art Supervisor Name Role Phone Roc Steele MD Primary Care Provider [phone] Roc Steele MD Unavailable [phone] Luis Felipe Dugan DO Unavailable [phone] Raya Holt RN Unavailable [phone] Gladis Laird LPN Unavailable Encounter Details Date Type Department Care Team (Late st Contact Info) Description 10/03/2023 Abstract [facility] 112 [facility] 110 [place] [address] Roc Steele MD 112 [facility] 110 [place], [place] [id number] Social History Tobacco Use Types Packs/Day Years [...] How often do you attend chur or uatsdin services? Never 11/25/2022 Do you [...] [facility] of Occupat ional Health - Occupational Stress [...] [facility] 120 [place] [address] Alex Tam DPM 3006 [facility] 5 [place] [address] documented as of this encounter Visit Diagnoses Not on filedocumented in this encounter Additional Health Concerns Assessment Noted Time PHQ-9 Depression Total Score: 0 07/06/19 24 3:00 PM EST documented as of this encounter Care Teams Art Supervisor Relationship Specialty Start Date End Date Roc Steele MD 112 [facility] 110 [place] [address] PCP - General Internal Medicine 09/28/22 Roc Steele MD 112 [facility] 110 [place] [address] PCP - ACO Reach 08/30/23 Luis Felipe Dugan DO [address] [place] [address] Referring Physician Neurology 03/07/24 Raya Holt, CARMEN [address] [place] [address] Clinical Advocate Family Medicine 06/07/24 07/19/24 Gladis Laird LPN [address] [facility] 110 [place] [address] 07/19/24 documented as of this encounter
--- OUTSIDE RECORDS SUMMARY | 2024-10-31 10:12 | XMS_ITS | Encounter Summary ---
Author Organization [facility] Address [address] [place] [address] Care Team Providers Care Planting Material Carrier Name Role Phone Roc Steele MD Primary Care Provider [phone] Roc Steele MD Unavailable [phone] Luis Felipe Dugan DO Unavailable [phone] Raya Holt RN Unavailable [phone] Gladis Laird LPN Unavailable Encounter Details Date Type Department Care Team (Late st Contact Info) Description 05/30/2024 Abstract [facility] 112 [facility] 110 [place] [address] Roc Steele MD 112 [facility] 110 [place], [place] [address] Social History Tobacco Use Types Packs/Day Years [...] How often do you attend chur or judaism services? Never 11/25/2022 Do you belong to any clubs o r organizations such as presybeterian groups, unions, fraternal or athletic groups, or [...] Recorded Patient Health Questionnaire-2 Score 0 07/06/2023 [facility] of Occupat ionnm Health - Occupational Stress [...] EDT Procedure Visit [facility] 112 [facility] [address] [place] [address] Alex Tam DPM 3006 [facility] [address] [place] [address] documented as of this encounter Visit Diagnoses Not on filedocumented in this encounter Additional Health Concerns Assessment Noted Time PHQ-9 Depression Total Score: 0 07/06/19 24 3:00 PM EST documented as of this encounter Care Teams Planting Material Carrier Relationship Specialty Start Date End Date Roc Steele MD [address] [place] [address] [place] [address] PCP - General Internal Medicine 09/28/22 Roc Steele MD [address] [place] [address] [place] [phone] PCP - ACO Reach 08/30/23 Luis Felipe Dugan DO [address] [place] [address] Referring Physician Neurology 03/07/24 Raya Holt, RN [address] [place], [place] [phone] Clinical Advocate Family Medicine 06/07/24 07/19/24 Gladis Laird LPN [address] [place] [address] [place] [address] 07/19/24 documented as of this encounter
--- OUTSIDE RECORDS SUMMARY | 2024-10-31 10:12 | XMS_ITS | Encounter Summary ---
Author Organization [facility] Address [address] [place] [address] Care Team Providers Care Recovery Engineer Name Role Phone Roc Steele MD Primary Care Provider [phone] Roc Steele MD Unavailable [phone] Luis Felipe Dugan DO Unavailable [phone] Raya Holt RN Unavailable [phone] Gladis Laird LPN Unavailable Encounter Details Date Type Department Care Team (Late st Contact Info) Description 05/21/2024 Abstract [facility] [address] [facility] 110 [place] [address] Roc Steele MD 112 [facility] 110 [place], [place] [id number] Social History Tobacco Use Types Packs/Day Years [...] How often do you attend chur or mandaen services? Never 11/25/2022 Do you belong to [...] Recorded Patient Health Questionnaire-2 Score 0 07/06/2023 [facility] of Occupat ionga Health - Occupational Stress [...] Upcoming Encounters Date Type Department Care Team ([facility] st Contact Info) Description 12/19/2024 3:00 PM EDT Procedure Visit [facility] 112 [facility] 120 [place] [address] Alex Tam DPM 3006 [facility] [address] 5 [place] [address] documented as of this encounter Visit Diagnoses Not on filedocumented in this encounter Additional Health Concerns Assessment Noted Time PHQ-9 Depression Total Score: 0 07/06/19 24 3:00 PM EST documented as of this encounter Care Teams Recovery Engineer Relationship Specialty Start Date End Date Roc Steele MD [address] [place] [address] PCP - General Internal Medicine 09/28/22 Roc Steele MD [address] [place] [id number] PCP - ACO Reach 08/30/23 Luis Felipe Dugan DO [address] [place] [address] Referring Physician Neurology 03/07/24 Raya Holt, RN [address] [place], [place] [address] Clinical Advocate Family Medicine 06/07/24 07/19/24 Gladis Laird LPN [address] [place] [address] 07/19/24 documented as of this encounter
--- OUTSIDE RECORDS SUMMARY | 2024-10-31 10:12 | XMS_ITS | Encounter Summary ---
Author Organization [facility] Address [address] [place] [address] Care Team Providers Care Machinist Instructor Name Role Phone Roc Steele MD Unavailable [phone] Roc Steele MD Primary Care Provider [phone] Roc Steele MD Unavailable [phone] Luis Felipe Dugan DO Unavailable [phone] Raya Holt RN Unavailable [phone] Gladis Laird LPN Unavailable Encounter Details Date Type Department Care Team (Late st Contact Info) Description 12/07/2022 Abstract [facility] [address] [facility] [facility] 110 [place] [address] Roc Steele MD [address] [place] [facility] 110 [place], [place] [address] Social History Tobacco Use Types Packs/Day Years [...] often do you attend chur ch or rastafari services? Never 11/25/2022 Do you [...] and heating? Not hard at all 11/25/2022 [facility] of Occupat ional Health - [...] Upcoming Encounters Date Type Department Care Team ([facility] st Contact Info) Description 12/19/2024 3:00 PM EDT Procedure Visit [facility] [address] [facility] 120 [place] [address] Alex Tam DPM 3006 [facility] 5 [place] [address] documented as of this encounter Visit Diagnoses Not on filedocumented in this encounter Care Teams Machinist Instructor Relationship Specialty Start Date End Date Roc Steele MD [address] [facility] 110 [place] [address] PCP - ACO Reach 09/22/22 06/29/23 Roc Steele MD [address] [facility] 110 [place], [place] [address] PCP - General Internal Medicine 09/28/22 Roc Steele MD [address] [facility] 110 [place] [address] PCP - ACO Reach 08/30/23 Luis Felipe Dugan DO [address] [place] [address] Referring Physician Neurology 03/07/24 Raya Holt, RN [address] [place], [place] [address] Clinical Advocate Family Medicine 06/07/24 07/19/24 Gladis Laird LPN [address] [facility] 110 [place] [address] 07/19/24 documented as of this encounter
--- OUTSIDE RECORDS SUMMARY | 2024-10-31 10:13 | XMS_ITS | Encounter Summary ---
Author Organization [facility] Address [address] [place] [address] Care Team Providers Care Supervisor Parking Lot Name Role Phone Roc Steele MD Primary Care Provider [phone] Roc Steele MD Unavailable [phone] Luis Felipe Dugan DO Unavailable [phone] Raya Holt RN Unavailable [phone] Gladis Laird LPN Unavailable Encounter Details Date Type Department Care Team (Late st Contact Info) Description 10/16/2023 Abstract [facility] 112 [facility] 110 [place] [address] Roc Steele MD 112 [facility] 110 [place], [place] [address] Social History Tobacco Use Types Packs/Day Years [...] How often do you attend chur or quaker services? Never 11/25/2022 Do you belong to [...] Recorded Patient Health Questionnaire-2 Score 0 07/06/2023 [facility] of Occupat ional Health - Occupational [...] EDT Procedure Visit [facility] 112 [facility] 120 [place] [address] Alex Tam DPM 3006 [facility] 5 [place] [address] documented as of this encounter Visit Diagnoses Not on filedocumented in this encounter Additional Health Concerns Assessment Noted Time PHQ-9 Depression Total Score: 0 07/06/19 24 3:00 PM EST documented as of this encounter Care Teams Supervisor Parking Lot Relationship Specialty Start Date End Date Roc Steele MD 112 [facility] 110 [place] [address] PCP - General Internal Medicine 09/28/22 Roc Steele MD 112 [facility] 110 [place] [address] PCP - ACO Reach 08/30/23 Luis Felipe Dugan DO [address] [place] [address] Referring Physician Neurology 03/07/24 Raya Holt, CARMEN [address] [place] [address] Clinical Advocate Family Medicine 06/07/24 07/19/24 Gladis Laird LPN [address] [facility] 110 [place] [address] 07/19/24 documented as of this encounter
--- NOTE | 2024-10-31 10:30 | PM.CN ---
Consult Note: HPI Data of Consult Patient: known to practice within the last 3 years Requesting Physician: Fernanda Romeo NP Primary Care Provider: REJI FORRESTER Consult Narrative Reason for consult: low back and RLE pain Narrative: 78yof who presents for evaluation. longstanding low back, right hip and leg pain. thought it was from hip, which was replaced several years ago, but xr shows hip in good alignment. has engaged in a series of provider directed home exercises >6 weeks, without lasting benefit. uses pain meds from pcp. denies adverse med side effects. recent lumbar MRI consistent with multilevel ddd, stenosis, facet arthropathy, as well as L5 pars defect. recently underwent right L3-4 L4-5 TFESI with significant relief for a few days. pt noting increased right low back pain at this time. pain 9/10 increasing to 10/10 with standing and activity. cc:: CC: Fernanda Romeo NP [facility] Medical History Benign essential hypertension �I10 - Essential (primary) hypertension (ICD-10) Chronic heart failure with preserved ejection fraction (HFpEF) �I50.32 - Chronic diastolic (congestive) heart failure (ICD-10) Generalized weakness �R53.1 - Weakness (ICD-10) Fall �W19.XXXA - Unspecified fall, initial encounter (ICD-10) Pulmonary edema �J81.1 - Chronic pulmonary edema (ICD-10) Closed head injury �S09.90XA - Unspecified injury of head, initial encounter (ICD-10) Contusion of right knee �S80.01XA - Contusion of right knee, initial encounter (ICD-10) Abrasion of elbow, right �S50.311A - Abrasion of right elbow, initial encounter (ICD-10) Pneumonia �J18.9 - Pneumonia, unspecified organism (ICD-10) Acute CHF (congestive heart failure) �I50.9 - Heart failure, unspecified (ICD-10) Acute kidney injury �N17.9 - Acute kidney failure, unspecified (ICD-10) Community acquired pneumonia �J18.9 - Pneumonia, unspecified organism (ICD-10) GERD without esophagitis �K21.9 - Gastro-esophageal reflux disease without esophagitis (ICD-10) Lump of left breast �N63.20 - Unspecified lump in the left breast, unspecified quadrant (ICD-10) High cholesterol �E78.00 - Pure hypercholesterolemia, unspecified (ICD-10) High blood pressure �I10 - Essential (primary) hypertension (ICD-10) Anxiety �F41.9 - Anxiety disorder, unspecified (ICD-10) Macular degeneration �H35.30 - Unspecified macular degeneration (ICD-10) Degenerative disc disease Fibromyalgia �M79.7 - Fibromyalgia (ICD-10) Right shoulder pain �M25.511 - Pain in right shoulder (ICD-10) Sleep apnea �G47.30 - Sleep apnea, unspecified (ICD-10) Surgical History Carpal tunnel syndrome, left �G56.02 - Carpal tunnel syndrome, left upper limb (ICD-10) History of arthroplasty of right ankle �Z96.661 - Presence of right artificial ankle joint (ICD-10) History of bilateral knee replacement �Z96.653 - Presence of artificial knee joint, bilateral (ICD-10) History of right hip replacement �Z96.641 - Presence of right artificial hip joint (ICD-10) Family History Mother Family history of CHF (congestive heart failure) Sister Family history of CHF (congestive heart failure) Son Family history of cancer Family history of diabetes mellitus Family history of hypertension Social History Within the past year, how often did you have a drink containing alcohol: never Score interpretation: A score less than 3 is consistent with normal alcohol consumption. Smoking status: Never smoker Non-prescribed substance use: denies use Previous occupational history: retired Highest level of school completed/degree received: GED or equivalent Are you now , , , , never or living with a partner: In a typical week, how many times do you talk on the telephone with family, friends, or neighbors: 3 or more times per week How often do you get together with friends or relatives: 3 or more times per week How often do you attend christian or episcopalian services: never Little interest or pleasure in doing things: not at all Feeling down, depressed, or hopeless: not at all Feel stressed/tense/nervous/anxious/difficulty sleeping: not at all Do you think of yourself as: straight/heterosexual Gender Identity: female Meds Home Medications and Allergies Home Medications �Medication �Instructions �Recorded �Confirmed �Type hydrocodone 5 mg-acetaminophen 325 1 tab PO Q6H PRN pain 12/01/22 10/14/24 History mg tablet nortriptyline 10 mg capsule 30 mg PO BEDTIME 12/01/22 10/14/24 History pantoprazole 40 mg tablet,delayed 40 mg PO DAILY 12/01/22 10/14/24 History release simvastatin 10 mg tablet 10 mg PO DAILY 12/01/22 10/14/24 History zolpidem 10 mg tablet 10 mg PO DAILY 12/01/22 10/14/24 History tizanidine 4 mg tablet 4 mg PO DAILY 05/12/24 10/14/24 History metoprolol succinate 50 mg 50 mg PO BID #0 tabs 05/14/24 10/14/24 Rx tablet,extended release 24 hr Allergies Allergy/AdvReac Type Severity Reaction Status Date / Time clarithromycin Allergy Severe Rash Verified 10/14/24 08:53 moxifloxacin (From Avelox) Allergy Severe tongue Verified 10/14/24 08:53 swelling Sulfa (Sulfonamide Allergy Unknown Unknown Verified 10/14/24 08:53 Antibiotics) ciprofloxacin (From Cipro) Allergy Rash Verified 10/14/24 08:53 Exam Constitutional Documenting provider has reviewed patient's vital signs: yes Common normals: no apparent distress, oriented x3, healthy appearing, alert and well nourished General appearance: cooperative HENMT Common normals: normocephalic, hearing grossly normal bilaterally and moist oral mucous membranes Head and scalp: normocephalic Eye Common normals: PERRL Pupil: PERRL Neck & C-Spine Common normals: full ROM General: normal visual inspection Chest Common normals: inspection of chest normal Respiratory Common normals: normal respiratory effort, no retractions and no use of accessory muscles Back & Pelvis Lumbar spine/lower back: ROM limited, pain with ROM and straight leg raise negative bilaterally Sacroiliac joints: SI joint(s) abnormal Other: right sij positive vinnie(patricks), gaenslens, thigh thrust, compression test Extremity Common normals: normal to inspection and full ROM Neuro Common normals: oriented x3 Sensorium/orientation: alert Psych Common normals: mental status grossly normal, thought process normal, cooperative, affect normal, speech normal and activity/motor behavior normal Speech: normal speech Thought process: normal thought process Assessment and Plan Assessment and Plan (1) Lumbar stenosis with neurogenic claudication: (2) Sacroiliitis: Assessment and Plan: The patient has had over 3 months of moderate to severe low back and RLE pain with functional impairment and inadequate response to conservative care including NSAIDS (unless there are contraindication such as concurrent blood thinners), multiple oral or topical pain medications, and home exercise program/physical therapy.� Patient has completed >6 weeks of guided home exercise program and/or formal physical therapy program without relief of their symptoms.� The Oswestry Disability Index was completed, and the patient scored a 52%.� The patient noted the following:�� moderate to severe pain impacting standing, walking, sitting, sleeping, social life, and travel We discussed the risks and benefits of the procedure with the patient, and we are NOT planning on using sedation as outlined in the guidelines from Medicare unless there is a documented reason that sedation would be strongly recommended.��The procedure will be completed with fluoroscopic guidance.� Plan proceed with right SIJ injection continue HEP as tolerated continue utilizing walker, notes frequent falls f/u 2 weeks after injection
== END 2024-10-31 10:09 | disposition home or self-care (01) ==
LOC: PM 10:09
PROVIDERS: PCP Internal Medicine; Visit Provider Nurse Practitioner
DX: M48.062 Spinal stenosis, lumbar region with neurogenic claudication (principal); M46.1 Sacroiliitis, not elsewhere classified
CPT/HCPCS: G0463

== ENCOUNTER 2024-11-04 09:38 | Day surgery (SDC) | payer MEDICARE, OTHER, SELFPAY ==
[2024-11-04 10:11] VITALS: BP 174/110; PULSE 78; TEMP 36.6; O2SAT 94
[2024-11-04 10:30] VITALS: BP 171/103; BP 176/96; PULSE 74; PULSE 79; O2SAT 94; O2SAT 95
[2024-11-04] MEDS: BUPIVACAINE HCL 0.25% PF 25 MG/10 ML VIAL 2 ML INJ (10:31)
[2024-11-04] MEDS: METHYLPREDNISOLONE ACETATE 40 MG/ML VIAL INJ (10:31)
[2024-11-04] MEDS: IOHEXOL 240 MG/ML - 10 ML VIAL 12 MG INJ (10:31)
[2024-11-04] MEDS: LIDOCAINE HCL 2% 400 MG/20 ML MDV INJ (10:31)
--- NOTE | 2024-11-04 10:33 | W.PM.PROCNOT ---
Date of procedure: 11/04/24 Pre-op diagnosis: Pain due to right sacroiliitis Post-op diagnosis: same as pre-op Procedure: Procedure: Right block of the nerve innervating the sacroiliac joint Medications: Bupivacaine 0.25% 3cc, depomedrol 40mg After informed consent was obtained, the patient was brought to the medical procedure unit and placed in the prone position, when a timeout was completed verifying correct patient, procedure, site, positioning, implant, and/or special equipment.? The skin overlying the area was prepped and draped in standard sterile fashion using alcohol.? A 25-gauge needle was inserted towards the superior gluteal nerve innervating the right sacroiliac joint under direct fluoroscopic imaging.? Needle tip was advanced until the nerve was encountered.? We instilled a total of 0.5 mL of solution. Subsequently, the dorsal rami of L5, S1, and S2 were approached, and the procedure completed in the same fashion.? Postoperatively needles were removed.? The patient tolerated the procedure well without complication.? The patient reported reduction in pain symptoms postoperatively. Anesthesia: Local Surgeon: Ml Sanchez Pathology: none sent Condition: stable Disposition: no change
== END 2024-11-04 10:37 | disposition home or self-care (01) ==
PROVIDERS: PCP Internal Medicine; Visit Provider Anesthesiology
DX: M46.1 Sacroiliitis, not elsewhere classified (principal)
CPT/HCPCS: 64451; J0665; J1010; Q9966

== ENCOUNTER 2024-11-13 12:38 | Outpatient (OUT) | payer MEDICARE, OTHER, SELFPAY ==
--- NOTE | 2024-11-13 12:52 | PM.CN ---
Consult Note: HPI Data of Consult Patient: known to practice within the last 3 years Requesting Physician: Fernanda Romeo NP Primary Care Provider: REJI FORRESTER Consult Narrative Reason for consult: low back and RLE pain Narrative: 78yof who presents for evaluation. longstanding low back, right hip and leg pain. thought it was from hip, which was replaced several years ago, but xr shows hip in good alignment. has engaged in a series of provider directed home exercises >6 weeks, without lasting benefit. uses pain meds from pcp. denies adverse med side effects. recent lumbar MRI consistent with multilevel ddd, stenosis, facet arthropathy, as well as L5 pars defect. recently underwent right L3-4 L4-5 TFESI and right SIJ injection with 75% improvement ongoing. notes mild to moderate aching in low back. cc:: CC: Fernanda Romeo NP [facility] Medical History Benign essential hypertension �I10 - Essential (primary) hypertension (ICD-10) Chronic heart failure with preserved ejection fraction (HFpEF) �I50.32 - Chronic diastolic (congestive) heart failure (ICD-10) Generalized weakness �R53.1 - Weakness (ICD-10) Fall �W19.XXXA - Unspecified fall, initial encounter (ICD-10) Pulmonary edema �J81.1 - Chronic pulmonary edema (ICD-10) Closed head injury �S09.90XA - Unspecified injury of head, initial encounter (ICD-10) Contusion of right knee �S80.01XA - Contusion of right knee, initial encounter (ICD-10) Abrasion of elbow, right �S50.311A - Abrasion of right elbow, initial encounter (ICD-10) Pneumonia �J18.9 - Pneumonia, unspecified organism (ICD-10) Acute CHF (congestive heart failure) �I50.9 - Heart failure, unspecified (ICD-10) Acute kidney injury �N17.9 - Acute kidney failure, unspecified (ICD-10) Community acquired pneumonia �J18.9 - Pneumonia, unspecified organism (ICD-10) GERD without esophagitis �K21.9 - Gastro-esophageal reflux disease without esophagitis (ICD-10) Lump of left breast �N63.20 - Unspecified lump in the left breast, unspecified quadrant (ICD-10) High cholesterol �E78.00 - Pure hypercholesterolemia, unspecified (ICD-10) High blood pressure �I10 - Essential (primary) hypertension (ICD-10) Anxiety �F41.9 - Anxiety disorder, unspecified (ICD-10) Macular degeneration �H35.30 - Unspecified macular degeneration (ICD-10) Degenerative disc disease Fibromyalgia �M79.7 - Fibromyalgia (ICD-10) Right shoulder pain �M25.511 - Pain in right shoulder (ICD-10) Sleep apnea �G47.30 - Sleep apnea, unspecified (ICD-10) Surgical History Carpal tunnel syndrome, left �G56.02 - Carpal tunnel syndrome, left upper limb (ICD-10) History of arthroplasty of right ankle �Z96.661 - Presence of right artificial ankle joint (ICD-10) History of bilateral knee replacement �Z96.653 - Presence of artificial knee joint, bilateral (ICD-10) History of right hip replacement �Z96.641 - Presence of right artificial hip joint (ICD-10) Family History Mother Family history of CHF (congestive heart failure) Sister Family history of CHF (congestive heart failure) Son Family history of cancer Family history of diabetes mellitus Family history of hypertension Social History Within the past year, how often did you have a drink containing alcohol: never Score interpretation: A score less than 3 is consistent with normal alcohol consumption. Smoking status: Never smoker Non-prescribed substance use: denies use Previous occupational history: retired Highest level of school completed/degree received: GED or equivalent Are you now , , , , never or living with a partner: In a typical week, how many times do you talk on the telephone with family, friends, or neighbors: 3 or more times per week How often do you get together with friends or relatives: 3 or more times per week How often do you attend taoism or confucianism services: never Little interest or pleasure in doing things: not at all Feeling down, depressed, or hopeless: not at all Feel stressed/tense/nervous/anxious/difficulty sleeping: not at all Do you think of yourself as: straight/heterosexual Gender Identity: female Meds Home Medications and Allergies Home Medications �Medication �Instructions �Recorded �Confirmed �Type hydrocodone 5 mg-acetaminophen 325 1 tab PO Q6H PRN pain 12/01/22 11/04/24 History mg tablet nortriptyline 10 mg capsule 30 mg PO BEDTIME 12/01/22 11/04/24 History pantoprazole 40 mg tablet,delayed 40 mg PO DAILY 12/01/22 11/04/24 History release simvastatin 10 mg tablet 10 mg PO DAILY 12/01/22 11/04/24 History zolpidem 10 mg tablet 10 mg PO DAILY 12/01/22 11/04/24 History tizanidine 4 mg tablet 4 mg PO DAILY 05/12/24 11/04/24 History metoprolol succinate 50 mg 50 mg PO BID #0 tabs 05/14/24 11/04/24 Rx tablet,extended release 24 hr Allergies Allergy/AdvReac Type Severity Reaction Status Date / Time clarithromycin Allergy Severe Rash Verified 11/04/24 10:09 moxifloxacin (From Avelox) Allergy Severe tongue Verified 11/04/24 10:09 swelling Sulfa (Sulfonamide Allergy Unknown Unknown Verified 11/04/24 10:09 Antibiotics) ciprofloxacin (From Cipro) Allergy Rash Verified 11/04/24 10:09 Exam Constitutional Documenting provider has reviewed patient's vital signs: yes Common normals: no apparent distress, oriented x3, healthy appearing, alert and well nourished General appearance: cooperative HENMT Common normals: normocephalic, hearing grossly normal bilaterally and moist oral mucous membranes Head and scalp: normocephalic Eye Common normals: PERRL Pupil: PERRL Neck & C-Spine Common normals: full ROM General: normal visual inspection Chest Common normals: inspection of chest normal Respiratory Common normals: normal respiratory effort, no retractions and no use of accessory muscles Back & Pelvis Lumbar spine/lower back: ROM limited, pain with ROM, lumbar spinal tenderness and straight leg raise negative bilaterally Sacroiliac joints: SI joints normal Other: mildly positive facet loading right sij negative vinnie(patricks), gaenslens, thigh thrust, compression test Extremity Common normals: normal to inspection and full ROM Neuro Common normals: oriented x3 Sensorium/orientation: alert Psych Common normals: mental status grossly normal, thought process normal, cooperative, affect normal, speech normal and activity/motor behavior normal Speech: normal speech Thought process: normal thought process Results Additional Findings Additional findings: If on a controlled substance or opioids, I have checked an [place] report on this patient and there are no aberrancies noted in the prescribing history.��If on a controlled substance or opioid a drug screen was completed and reviewed within the last year, and if there has not been a drug screen completed we ordered one today to monitor higher risk, state monitored pain medication use. As part of providing excellent, safe, comprehensive care, the following was completed at our patient's visit: 1. A medication reconciliation and review to ensure accurate knowledge of current/active medications, including asking our patients to inform us about any pecf-xbo-eqneska medications or herbal remedies/nutritional supplements/alternative remedies. 2. A review to specifically ensure our patients have had annual screening for screening for depression, screening for tobacco use, and screening for unhealthy alcohol use. For concerning screenings had a discussion with the patient, provided patient education, and recommended follow-up with primary care provider when appropriate. If patient noted with a risk of falling, they received education on strength, gait, and balance training to prevent future risk of falling. Portions of this note may have been carried over from the previous visit and updated as appropriate. Please note this office utilizes paper charting in addition to the electronic medical record. A list of current medications, vitals, and PMH is available there as the clinical staff outside of myself do not have access to [employer] charting during the clinic day operations. As part of providing quality comprehensive care the current medications, vitals, and PMH were reviewed in the paper chart. Assessment and Plan Assessment and Plan (1) Lumbar stenosis with neurogenic claudication: Assessment and Plan: 10/14/24 right L3-4 L4-5 TFESI 50% improvement ongoing (2) Sacroiliitis: Assessment and Plan: 11/04/24 right SIJ injection 75% improvement in pain per pt HORACE 42% Plan pain well controlled per pt at this time continue HEP as tolerated continue utilizing walker, notes frequent falls f/u 3 months, sooner if needed
== END 2024-11-13 12:39 | disposition home or self-care (01) ==
LOC: PM 12:39
PROVIDERS: PCP Internal Medicine; Visit Provider Nurse Practitioner
DX: M48.062 Spinal stenosis, lumbar region with neurogenic claudication (principal); M46.1 Sacroiliitis, not elsewhere classified
CPT/HCPCS: G0463

== ENCOUNTER 2024-12-26 11:27 | Inpatient (IN) | payer MEDICARE, OTHER, SELFPAY ==
[2024-12-26] VITALS (28 sets, daily range): BP systolic 120–194; BP diastolic 68–129; PULSE 57–90; TEMP 36.4–36.9; O2SAT 86–100; BMI 45.5; BMI 45.3
--- OUTSIDE RECORDS SUMMARY | 2024-12-26 11:33 | XMS_ITS | Encounter Summary ---
Author Organization [facility] Address [address] [place] [address] Care Team Providers Care Fresh Foods Technician Name Role Phone Roc Steele MD Unavailable [phone] Roc Steele MD Primary Care Provider Roc Steele MD Unavailable [phone] Luis Felipe Dugan DO Unavailable Raya Holt RN Unavailable Gladis Laird LPN Unavailable Encounter Details Date Type Department Care Team (Late st Contact Info) Description 10/07/2022 Orders Only [facility] [place] [facility] [address] [place] [phone] Aarti Castillo, LEVER TENDER [address] [place] [address] Social History Tobacco Use Types Packs/Day Years [...] Department Care Team (Late Contact Info) Description 01/02/2025 2:40 PM EDT Procedure Visit [facility] [address] [place] [phone] Alex Tam DPM [address] [facility] 5 [place] [address] documented as of this encounter Procedures Procedure Name Priority Date/Time Associated Diagnosis Comments POLYSOMNOGRAPHY Routine 10/03/2022 9:04 AM EDT documented in this encounter Results * Polysomnography (10/03/2022 9:04 AM EDT) us Aarti Castillo [facility] ORDERABLES Maggi l Result documented in this encounter Visit Diagnoses Not on filedocumented in this encounter Care Teams Fresh Foods Technician Relationship Specialty Start Date End Date Roc Steele MD [address] [place] [address] PCP - ACO Reach 09/22/22 06/29/23 Roc Steele MD [address] [place] [address] PCP - General Internal Medicine 09/28/22 Roc Steele MD [address] [place] [address] PCP - ACO Reach 08/30/23 Luis Felipe Dugan DO [address] [place] [address] Referring Physician Neurology 03/07/24 Raya Holt, CARMEN [address] [place] [address] Clinical Advocate Family Medicine 06/07/24 07/19/24 Gladis Laird LPN [address] [place] [address] 07/19/24 documented as of this encounter
--- OUTSIDE RECORDS SUMMARY | 2024-12-26 11:33 | XMS_ITS | Encounter Summary ---
Author Organization [facility] Address [address] [place] [address] Care Team Providers Care Room Service Attendant Name Role Phone Roc Steele MD Unavailable [phone] Roc Steele MD Primary Care Provider [phone] Roc Steele MD Unavailable [phone] Luis Felipe Dugan DO Unavailable [phone] Raya Holt RN Unavailable [phone] Gladis Laird LPN Unavailable Encounter Details Date Type Department Care Team (Late st Contact Info) Description 12/07/2022 Abstract [facility] [place] [facility] [address] [facility] [address] [place] [id number] Roc Steele MD [address] [facility] [address] [place], [place] [id number] Social History Tobacco Use Types Packs/Day Years [...] often do you attend chur ch or buddhism services? Never 11/25/2022 Do you belong to [...] and heating? Not hard at all 11/25/2022 [facility] Occupat ional Health - Occupational [...] Upcoming Encounters Date Type Department Care Team ([facility] Contact Info) Description 01/02/2025 2:40 PM EDT Procedure Visit [facility] [address] [facility] [address] [place] [phone] Alex Tam DPM [address] [facility] 5 [place] [address] documented as of this encounter Visit Diagnoses Not on filedocumented in this encounter Care Teams Room Service Attendant Relationship Specialty Start Date End Date Roc Steele MD [address] [facility] [address] [place] [address] PCP - ACO Reach 09/22/22 06/29/23 Roc Steele MD [address] [facility] [address] [place] [address] PCP - General Internal Medicine 09/28/22 Roc Steele MD [address] [facility] [address] [place] [address] PCP - ACO Reach 08/30/23 Luis Felipe Dugan DO [address] [place] [address] Referring Physician Neurology 03/07/24 Raya Holt, CARMEN [address] [place] [address] Clinical Advocate Family Medicine 06/07/24 07/19/24 Gladis Laird LPN [address] [facility] [address] [place] [address] 07/19/24 documented as of this encounter
--- OUTSIDE RECORDS SUMMARY | 2024-12-26 11:33 | XMS_ITS | Encounter Summary ---
Author Organization [facility] Address [address] [place] [address] Care Team Providers Care Motor Vehicle Compliance Analyst Name Role Phone Roc Steele MD Primary Care Provider [phone] Roc Steele MD Unavailable [phone] Luis Felipe Dugan DO Unavailable [phone] Raya Holt RN Unavailable [phone] Gladis Laird LPN Unavailable Encounter Details Date Type Department Care Team (Late st Contact Info) Description 07/11/2024 Abstract [facility] [facility] [address] [facility] [address] [place] [phone] Roc Steele MD [address] [facility] [address] [place] [address] Social History Tobacco Use Types Packs/Day Years [...] ways by your partner or ex-partner? No 07 / Within the last year, have y ou [...] Recorded Patient Health Questionnaire-2 Score 0 07/11/2024 [facility] of Occupat ional Health - Occupational Stress [...] Care Team (Late st Contact Info) Description 01/02/2025 2:40 PM EDT Procedure Visit [facility] [address] [place] [address] [place] [address] Alex Tam, DPM [address] [facility] [place] [address] documented as of this encounter Visit Diagnoses Not on filedocumented in this encounter Additional Health Concerns Assessment Noted Time PHQ-9 Depression Total Score: 0 07/06/19 24 3:00 PM EST documented as of this encounter Care Teams Motor Vehicle Compliance Analyst Relationship Specialty Start Date End Date Roc Steele MD [address] [facility] 110 [place] [address] PCP - General Internal Medicine 09/28/22 Roc Steele MD [address] [facility] [address] [place] [address] PCP - ACO Reach 08/30/23 Luis Felipe Dugan DO [address] [place], [place] [id number] Referring Physician Neurology 03/07/24 Raya Holt, CARMEN [address] [place] [address] Clinical Advocate Family Medicine 06/07/24 07/19/24 Gladis Laird LPN [address] [facility] 110 [place] [address] 07/19/24 documented as of this encounter
--- OUTSIDE RECORDS SUMMARY | 2024-12-26 11:33 | XMS_ITS | Encounter Summary ---
Author Organization [facility] Address [address] [place] [address] Care Team Providers Care Bell Cleaner Name Role Phone Roc Steele MD Unavailable [phone] Roc Steele MD Primary Care Provider [phone] Roc Steele MD Unavailable [phone] Luis Felipe Dugan DO Unavailable [phone] Raya Holt RN Unavailable [phone] Gladis Laird LPN Unavailable Encounter Details Date Type Department Care Team (Late st Contact Info) Description 03/02/2023 Abstract [facility] [place] [facility] [address] [facility] 110 [place] [address] Roc Steele MD [address] [facility] 110 [place], [place] [address] Social History Tobacco Use Types Packs/Day Years [...] often do you attend chur ch or worship services? Never 11/25/2022 Do you belong to any clubs o r organizations such as christianity groups, unions, fraternal or athletic groups, or [...] and heating? Not hard at all 11/25/2022 [facility] of Occupat ional Health [...] Upcoming Encounters Date Type Department Care Team ([facility] Contact Info) Description 01/02/2025 2:40 PM EDT Procedure Visit [facility] [address] [facility] [address] [place] [address] Alex Tam DPM 3006 [facility] 5 [place] [address] documented as of this encounter Visit Diagnoses Not on filedocumented in this encounter Care Teams Bell Cleaner Relationship Specialty Start Date End Date Roc Steele MD [address] [facility] [address] [place] [address] PCP - ACO Reach 09/22/22 06/29/23 Roc Steele MD [address] [facility] [address] [place] [address] PCP - General Internal Medicine 09/28/22 Roc Steele MD [address] [facility] [address] [place] [address] PCP - ACO Reach 08/30/23 Luis Felipe Dugan DO [address] [place] [address] Referring Physician Neurology 03/07/24 Raya Holt, CARMEN [address] [place] [address] Clinical Advocate Family Medicine 06/07/24 07/19/24 Gladis Laird LPN [address] [facility] [address] [place] [address] 07/19/24 documented as of this encounter
--- OUTSIDE RECORDS SUMMARY | 2024-12-26 11:33 | XMS_ITS | Encounter Summary ---
Author Organization [facility] Address [address] [place] [address] Care Team Providers Care Campus Security Officer Name Role Phone Roc Steele MD Primary Care Provider [phone] Roc Steele MD Unavailable [phone] Luis Felipe Dugan DO Unavailable [phone] Raya Holt RN Unavailable [phone] Gladis Laird LPN Unavailable Encounter Details Date Type Department Care Team (Late st Contact Info) Description 05/17/2024 Orders Only [facility] [place] [facility] [address] [place] [address] [place] [address] Unallocated, Noms Provider, [address] [place], [place] [address] Social History Tobacco Use Types Packs/Day Years [...] Recorded Patient Health Questionnaire-2 Score 0 07/06/2023 [facility] of Occupat ional Health - Occupational Stress [...] Upcoming Encounters Date Type Department Care Team ([facility] st Contact Info) Description 01/02/2025 2:40 PM EDT Procedure Visit [facility] 112 [facility] 120 [place] [address] Alxe Tam DPM 1928 [facility] 5 [place] [address] documented as of this encounter [...] documented as of this encounter Care Teams Campus Security Officer Relationship Specialty Start Date End Date Roc Steele MD [address] [facility] 110 [place] [address] PCP - General Internal Medicine 09/28/22 Roc Steele MD [address] [facility] 110 [place] [address] PCP - ACO Reach 08/30/23 Luis Felipe Dugan DO [address] [place] [address] Referring Physician Neurology 03/07/24 Raya Holt, RN [address] [place] [address] Clinical Advocate Family Medicine 06/07/24 07/19/24 Gladis Laird LPN [address] [facility] 110 [place] [address] 07/19/24 documented as of this encounter
--- OUTSIDE RECORDS SUMMARY | 2024-12-26 11:33 | XMS_ITS ---
Author Organization [facility] Address [address] [place] [address] Care Team Providers Care Electronic Drafter Name Role Phone Roc Steele MD Primary Care Provider [phone] Roc Steele MD Unavailable [phone] Luis Felipe Dugan DO Unavailable [phone] Gladis Laird LPN Unavailable Chronic Care Management (CCM) Status:Enrolled (Active) Start date:07/30/2016 Enrollment date:07/30/2016 Overview 03/01/23, 9:16 AM - Lydiamonday, LARRY- Patient gives verbal consent to be enrolled in CCM Program and understands there could be a bill for this service. Case Team Name Relationship Phone Gladis Laird LPN(Responsible Staff) [phone] Continued Care and Services Coordination
--- OUTSIDE RECORDS SUMMARY | 2024-12-26 11:33 | XMS_ITS | Encounter Summary ---
Author Organization [facility] Address [address] [place] [address] Care Team Providers Care Police Crime Scene Technician Name Role Phone Roc Steele MD Unavailable [phone] Roc Steele MD Primary Care Provider [phone] Roc Steele MD Unavailable [phone] Luis Felipe Dugan DO Unavailable [phone] Raya Holt RN Unavailable [phone] Gladis Laird LPN Unavailable Encounter Details [...] often do you attend chur ch or yazdanism services? Never 11/25/2022 Do you [...] Not hard at all 11/25/2022 [facility] of Occupat ional Health - Occupational Stress [...] ([facility] st Contact Info) Description 01/02/2025 2:40 PM EDT Procedure Visit [facility] 112 [facility] 120 [place] [address] Alex Tam DPM 3006 [facility] 5 [place] [address] documented as of this encounter Procedures Procedure Name Priority Date/Time Associated Diagnosis Comments XR CHEST 2V 06/22/2023 3:17 PM EST documented in this encounter Results * XR CHEST 2V (06/22/2023 3:17 PM EST) Anatomical Region Laterality Modality Other 06/22/2023 3:17 PM EST Narrative 06/22/2023 3:19 PM EST The [address] [address] XRay Report Signed Patient: USHA WALKER MR#: [id number] : 1945 Acct:[id number] Age/Sex: 77 / F ADM Date: 06/22/23 Loc: LAB Attending Dr: ALEX TAM Ordering Physician: ALEX TAM Date of Service: 06/22/23 Procedure(s): XR chest 2V Accession Number(s): [id number] cc: ROC STEELE ; ALEX TAM The [address] [address] Patient Name: USHA WALKER MRN: [id number] date: 1945 Sex: F Assigned Patient Location: LAB Current Patient Location: LAB Accession/Order Number: [id number] Exam Date: 06/22/2023 14:05 Report Date: 06/22/2023 15:17 At the request of: ALEX TAM Procedure: XR chest 2V PROCEDURE: XR chest 2V DATE: 06/22/2023 2:05 PM EST COMPARISONS: None. CLINICAL INDICATION: 77 years Female Preop Examination Z01.818 FINDINGS: Heart appears slightly prominent. The lungs are hypoaerated. There is slight diffuse increased interstitial markings throughout all lung abker. Some of this may represent some atelectasis. [...] Signed By: 06/22/23 1519 DD/ 1517 TD/TT: Biometric Technician: Procedure Note Radiology, Radiologist, MD - 06/22/2023 [place] [address] XRay Report Signed Patient: USHA WALKER KMR#: [id number] : 7Acct:[id number] Age/Sex: 77 / FADM Date: 06/22/23 Loc: LAB Attending Dr: ALEX TAM Ordering Physician: ALEX TAM Date of Service: 06/22/23 Procedure(s): XR chest 2V Accession Number(s): [id number] cc: ROC STEELE ; ALEX TAM [address] [address] Patient Name: USHA WALKER MRN: [id number] date: 1945 Sex: F Assigned Patient Location: LAB Current Patient Location: LAB Accession/Order Number: [id number] Exam Date: 06/22/2023 14:05 Report Date: 06/22/2023 [...] M.D. Signed By:06/22/23 1519 DD/ 1517 TD/TT: Biometric Technician: Generic External Data Provider [facility] Final Result documented in this encounter Visit Diagnoses Not on filedocumented in this encounter Care Teams Police Crime Scene Technician Relationship Specialty Start Date End Date Roc Steele MD [address] [facility] 110 [place] [address] PCP - ACO Reach 09/22/22 06/29/23 Roc Steele MD [address] [facility] 110 [place] [address] PCP - General Internal Medicine 09/28/22 Roc Steele MD [address] [place] [address] [place] [address] PCP - ACO Reach 08/30/23 Luis Felipe Dugan DO [address] [place] [address] Referring Physician Neurology 03/07/24 Raya Holt, RN [address] [place], [place] [address] Clinical Advocate Family Medicine 06/07/24 07/19/24 Gladis Laird LPN [address] [facility] 110 [place] [address] 07/19/24 documented as of this encounter
--- OUTSIDE RECORDS SUMMARY | 2024-12-26 11:33 | XMS_ITS | Encounter Summary ---
Author Organization [facility] Address [address] [place] [address] Care Team Providers Care Legal Support Manager Name Role Phone Roc Steele MD Primary Care Provider Roc Steele MD Unavailable [phone] Bull Duganjulianojean-claude JORDAN Unavailable [phone] Gladis Laird LPN Unavailable Encounter Details Date Type Department Care Team (Late st Contact Info) Description 07/23/2024 Abstract [facility] [place] [facility] [address] [facility] 110 [place] [address] Roc Steele MD 112 [facility] 110 [place] [address] Social History Tobacco Use Types Packs/Day Years [...] often do you attend chur ch or mandaen services? Never 11/25/2022 Do you [...] Recorded Patient Health Questionnaire-2 Score 0 07/11/2024 [facility] of Occupat ional Health - Occupational [...] ([facility] st Contact Info) Description 01/02/2025 2:40 PM EDT Procedure Visit [facility] [address] [place] 120 [place] [address] Alex Tam DPRne 3009 [facility] 5 [place] [address] documented as of this encounter Visit Diagnoses Not on filedocumented in this encounter Additional Health Concerns Assessment Noted Time PHQ-9 Depression Total Score: 0 07/06/19 24 3:00 PM EST documented as of this encounter Care Teams Legal Support Manager Relationship Specialty Start Date End Date Roc Steele MD 112 [facility] [place] [address] [place], [place] [address] PCP - General Internal Medicine 09/28/22 Roc Steele MD [address] [place] 110 [place] [address] PCP - ACO Reach 08/30/23 Luis Felipe Dugan DO [address] [place] [address] Referring Physician Neurology 03/07/24 Gladis Laird LPN [address] [place] 110 [place] [address] 07/19/24 documented as of this encounter
--- OUTSIDE RECORDS SUMMARY | 2024-12-26 11:33 | XMS_ITS | Encounter Summary ---
Author Organization [facility] Address [address] [place] [address] Care Team Providers Care Plastics Supervisor Name Role Phone Roc Steele MD Primary Care Provider [phone] Roc Steele MD Unavailable [phone] Luis Felipe Dugan DO Unavailable [phone] Raya Holt RN Unavailable [phone] Gladis Laird LPN Unavailable Encounter Details Date Type Department Care Team (Late st Contact Info) Description 07/02/2024 Abstract [facility] [place] [facility] [address] [facility] 110 [place] [address] Roc Steele MD [address] [facility] [address] [place] [address] Social History Tobacco Use Types Packs/Day Years [...] Recorded Patient Health Questionnaire-2 Score 0 07/03/2024 [facility] [place] of Occupat ional Health - Occupational Stress [...] [facility] [address] [place] 120 [place] [address] Alex Tam, DPM 6859 [facility] 5 [place] [address] documented as of this encounter Visit Diagnoses Not on filedocumented in this encounter Additional Health Concerns Assessment Noted Time PHQ-9 Depression Total Score: 0 07/06/19 24 3:00 PM EST documented as of this encounter Care Teams Plastics Supervisor Relationship Specialty Start Date End Date Roc Steele MD [address] [place] [facility] 110 [place] [address] PCP - General Internal Medicine 09/28/22 Roc Steele MD [address] [facility] 110 [place] [address] PCP - ACO Reach 08/30/23 Luis Felipe Dugan DO [address] [place] [address] Referring Physician Neurology 03/07/24 Raya Holt, RN [address] [place] [address] Clinical Advocate Family Medicine 06/07/24 07/19/24 Gladis Laird LPN [address] [place] [facility] 110 [place] [address] 07/19/24 documented as of this encounter
--- OUTSIDE RECORDS SUMMARY | 2024-12-26 11:33 | XMS_ITS | Encounter Summary ---
Author Organization [facility] Address [address] [place] [address] Care Team Providers Care Retail Associate Name Role Phone Roc Steele MD Unavailable [phone] Roc Steele MD Primary Care Provider [phone] Roc Steele MD Unavailable [phone] Luis Felipe Dugan DO Unavailable [phone] Raya Holt RN Unavailable [phone] Gladis Laird LPN Unavailable Encounter Details Date Type Department Care Team (Late st Contact Info) Description 03/01/2023 Abstract [facility] [place] [facility] [address] [facility] 110 [place] [address] Aarti Castillo, MEDICAL ASSEMBLER [address] [facility] 110 [place], [place] [address] Social History Tobacco Use Types Packs/Day Years [...] often do you attend chur ch or lutheran services? Never 11/25/2022 Do you belong to any clubs o r organizations such as oriental orthodox groups, unions, fraternal or athletic groups, [...] and heating? Not hard at all 11/25/2022 [facility] of Occupat ionla Health - Occupational Stress Questionnaire Answer Date [...] Upcoming Encounters Date Type Department Care Team ([facility] Contact Info) Description 01/02/2025 2:40 PM EDT Procedure Visit [facility] [address] [facility] 120 [place] [address] Alex Tam DPM 3006 [facility] 5 [place] [address] documented as of this encounter Visit Diagnoses Not on filedocumented in this encounter Care Teams Retail Associate Relationship Specialty Start Date End Date Roc Steele MD [address] [facility] 110 [place] [address] PCP - ACO Reach 09/22/22 06/29/23 Roc Steele MD [address] [facility] 110 [place] [address] PCP - General Internal Medicine 09/28/22 Roc Steele MD [address] [facility] 110 [place], [place] [address] PCP - ACO Reach 08/30/23 Luis eFlipe Dugan DO [address] [place] [address] Referring Physician Neurology 03/07/24 Raya Holt, RN [address] [place] [address] Clinical Advocate Family Medicine 06/07/24 07/19/24 Gladis Laird LPN [address] [facility] 110 [place] [address] 07/19/24 documented as of this encounter
--- OUTSIDE RECORDS SUMMARY | 2024-12-26 11:33 | XMS_ITS | Clinical Summary ---
Author Organization [facility] Address [address] [place] [address], [address] [place] [address] Care Team Providers Care Correctional Case Records Supervisor Name Role Phone Unavailable Primary Care Provider [...]
--- OUTSIDE RECORDS SUMMARY | 2024-12-26 11:33 | XMS_ITS | Encounter Summary ---
Author Organization [facility] Address [address] [place] [address] Care Team Providers Care Upper Inspector Name Role Phone Roc Steele MD Unavailable [phone] Roc Steele MD Primary Care Provider [phone] Roc Steele MD Unavailable [phone] Luis Felipe Dugan DO Unavailable [phone] Raya Holt RN Unavailable [phone] Gladis Laird LPN Unavailable Encounter Details [...] and heating? Not hard at all 11/25/2022 [facility] of Occupat ional Health - Occupational [...] Upcoming Encounters Date Type Department Care Team ([facility] st Contact Info) Description 01/02/2025 2:40 PM EDT Procedure Visit [facility] 112 [facility] 120 [place] [address] Alex Tam DPM 3006 [facility] 5 [place] [address] documented as of this encounter Procedures Procedure Name Priority Date/Time Associated Diagnosis Comments ECG 12-LEAD 06/22/2023 2:24 PM EST documented in this encounter Results * ECG 12-LEAD (06/22/2023 2:24 PM EST) Anatomical Region Laterality Modality Other 06/22/2023 2:24 PM EST Narrative 06/22/2023 10:19 PM EST The [address] [address] Electrocardiograph Report Signed Patient: USHA WALKER MR#: [id number] : 1945 Acct:[id number] Age/Sex: 77 / F ADM Date: 06/22/23 Loc: LAB Attending Dr: ALEX TAM Ordering Physician: ALEX TAM Date of Service: 06/22/23 Procedure(s): ECG 12 lead Accession Number(s): [id number] cc: The [facility] Test Date: 2023-06-22 Pat Name: USHA WALKER Department: Room: - Gender: Female Activity Aid: : 1945 Requested By: ALEX TAM Order Number: [id number] Reading MD: ELLIS DANIELSON Measurements Intervals [place] Rate: 84 P: 56 VA: 169 QRS: -28 QRSD: 118 T: 18 [...] D.O. Signed By: 06/22/23221806/22/232218 DD/ 1424 TD/TT: Natural Sciences Manager: Procedure Note Radiology, Radiologist, - 06/22/2023 [place] [address] Electrocardiograph Report Signed Patient: USHA WALKER KMR#: [id number] : 7Acct:[id number] Age/Sex: 77 / FADM Date: 06/22/23 Loc: LAB Attending Dr: ALEX TAM Ordering Physician: ALEX TAM Date of Service: 06/22/23 Procedure(s): ECG 12 lead Accession Number(s): [id number] cc: [facility] Test Date: 2023-06-22 Pat Name: USHA WALKER Department: Room: - Gender: Female Activity Aid: : 1945 Requested By: ALEX TAM Order Number: [id number] Reading MD: ELLIS DANIELSON Measurements Intervals [place] Rate: 84 P: 56 VA: 169 QRS: -28 QRSD: 118 T: 18 [...] Danielson D.O. Signed By:06/22/23221806/22/232218 DD/ 142 TD/TT: Natural Sciences Manager: Generic External Data Provider [facility] Final Result documented in this encounter Visit Diagnoses Not on filedocumented in this encounter Care Teams Upper Inspector Relationship Specialty Start Date End Date Roc Steele MD [address] [facility] 110 [place] [address] PCP - ACO Reach 09/22/22 06/29/23 Roc Steele MD [address] [facility] 110 [place] [address] PCP - General Internal Medicine 09/28/22 Roc Steele MD [address] [facility] 110 [place] [address] PCP - ACO Reach 08/30/23 Luis Felipe Dugan DO [address] [place] [address] Referring Physician Neurology 03/07/24 Raya Holt, RN [address] [place] [address] Clinical Advocate Family Medicine 06/07/24 07/19/24 Gladis Laird LPN [address] [facility] 110 [place] [address] 07/19/24 documented as of this encounter
--- OUTSIDE RECORDS SUMMARY | 2024-12-26 11:33 | XMS_ITS | Encounter Summary ---
Author Organization [facility] Address [address] [place] [address] Care Team Providers Care Senior Data Warehouse Architect Name Role Phone Roc Steele MD Primary Care Provider [phone] Roc Steele MD Unavailable [phone] Bull Duganjulianojean-claude JORDAN Unavailable [phone] Gladis Laird LPN Unavailable Encounter Details Date Type Department Care Team (Late st Contact Info) Description 07/24/2024 Abstract [facility] [place] [facility] [address] [facility] 110 [place] [address] Roc Steele MD 112 [facility] 110 [place] [address] Social History Tobacco Use Types Packs/Day Years [...] ([facility] st Contact Info) Description 01/02/2025 2:40 PM EDT Procedure Visit [facility] [address] [place] [address] [place] [address] Alex Tam DPRen 3007 [facility] 5 [place] [address] documented as of this encounter Visit Diagnoses Not on filedocumented in this encounter Additional Health Concerns Assessment Noted Time PHQ-9 Depression Total Score: 0 07/06/19 24 3:00 PM EST documented as of this encounter Care Teams Senior Data Warehouse Architect Relationship Specialty Start Date End Date Roc Steele MD 112 [facility] [place] [address] [place], [place] [address] PCP - General Internal Medicine 09/28/22 Roc Steele MD [address] [place] [address] [place] [address] PCP - ACO Reach 08/30/23 Luis Felipe Dugan DO [address] [place] [address] Referring Physician Neurology 03/07/24 Gladis Laird LPN [address] [place] [address] [place] [address] 07/19/24 documented as of this encounter
--- OUTSIDE RECORDS SUMMARY | 2024-12-26 11:33 | XMS_ITS | Encounter Summary ---
Author Organization [facility] Address [address] [place] [address] Care Team Providers Care Director Of Employer Services Name Role Phone Roc Steele MD Primary Care Provider [phone] Roc Steele MD Unavailable [phone] Luis Felipe Dugan DO Unavailable [phone] Raya Holt RN Unavailable [phone] Gladis Laird LPN Unavailable Encounter Details Date Type Department Care Team (Late st Contact Info) Description 06/25/2024 Abstract [facility] [place] [facility] [address] [facility] 110 [place] [address] Roc Steele MD [address] [facility] [address] [place] [address] Social History Tobacco Use Types Packs/Day Years [...] How often do you attend chur or congregational services? Never 11/25/2022 Do you belong to [...] Recorded Patient Health Questionnaire-2 Score 0 07/06/2023 [facility] [place] of Occupat ional Health - Occupational Stress [...] EDT Procedure Visit [facility] 112 [facility] [address] [place] [address] Alex Tam DPM 6451 [facility] 5 [place] [address] documented as of this encounter Visit Diagnoses Not on filedocumented in this encounter Additional Health Concerns Assessment Noted Time PHQ-9 Depression Total Score: 0 07/06/19 24 3:00 PM EST documented as of this encounter Care Teams Director Of Employer Services Relationship Specialty Start Date End Date Roc Steele MD [address] [place] [address] [place] [address] PCP - General Internal Medicine 09/28/22 Roc Steele MD [address] [facility] [address] [place] [address] PCP - ACO Reach 08/30/23 Luis Felipe Dugan DO [address] [place] [address] Referring Physician Neurology 03/07/24 Raya Holt, RN [address] [place] [address] Clinical Advocate Family Medicine 06/07/24 07/19/24 Gladis Laird LPN [address] [facility] [address] [place] [address] 07/19/24 documented as of this encounter
--- OUTSIDE RECORDS SUMMARY | 2024-12-26 11:33 | XMS_ITS | Encounter Summary ---
Author Organization [facility] Address [address] [place] [address] Care Team Providers Care Assembler Adjuster Name Role Phone Roc Steele MD Primary Care Provider [phone] Roc Steele MD Unavailable [phone] Luis Felipe Dugan DO Unavailable [phone] Raya Holt RN Unavailable [phone] Gladis Laird LPN Unavailable Encounter Details Date Type Department Care Team (Late st Contact Info) Description 03/06/2024 Orders Only ROSELYN MARIANNE 703 [facility] [address] [place] [address] Aarti Castillo, TEACHING FELLOW 112 [facility] 110 [place] [address] Social History Tobacco Use Types Packs/Day [...] Recorded Patient Health Questionnaire-2 Score 0 07/06/2023 [facility] of Occupat ional Health - Occupational Stress [...] Procedure Visit [facility] 112 [facility] 120 [place] [address] Alex Tam DPM 6043 [facility] 5 [place] [address] documented as of this encounter Procedures Procedure Name Priority Date/Time Associated Diagnosis Comments EMG AND NERVE CONDUCTION STUDY Routine 07/28/2021 3:41 PM EDT documented in this encounter Results * EMG AND NERVE CONDUCTION STUDY (07/28/2021 3:41 PM EDT) us Aarti Castillo TEACHING FELLOW NEUROLOGY ORDERABLES Final R esult documented in this encounter Visit Diagnoses Not on filedocumented in this encounter Additional Health Concerns Assessment Noted Time PHQ-9 Depression Total Score: 0 07/06/19 24 3:00 PM EST documented as of this encounter Care Teams Assembler Adjuster Relationship Specialty Start Date End Date Roc Steele MD [address] [facility] 110 [place] [address] PCP - General Internal Medicine 09/28/22 Roc Steele MD [address] [facility] 110 [place] [address] PCP - ACO Reach 08/30/23 Luis Felipe Dugan DO [address] [place] [address] Referring Physician Neurology 03/07/24 Raya Holt, CARMEN [address] [place] [address] Clinical Advocate Family Medicine 06/07/24 07/19/24 Gladis Laird LPN [address] [facility] 110 [place] [address] 07/19/24 documented as of this encounter
--- OUTSIDE RECORDS SUMMARY | 2024-12-26 11:33 | XMS_ITS | Encounter Summary ---
Author Organization [facility] Address [address] [place] [address] Care Team Providers Care Manager People Name Role Phone Roc Steele MD Unavailable [phone] Roc Steele MD Primary Care Provider [phone] Roc Steele MD Unavailable [phone] Luis Felipe Dugan DO Unavailable [phone] Raya Holt RN Unavailable [phone] Gladis Laird LPN Unavailable Encounter Details Date Type Department Care Team (Late st Contact Info) Description 12/07/2022 Orders Only [facility] [place] [facility] [address] [place] [address] [place] [address] A, Unknown Practice 1300 [place] [address] Social History Tobacco Use Types Packs/Day Years [...] How often do you attend chur or hoahaoism services? Never 11/25/2022 Do you [...] and heating? Not hard at all 11/25/2022 [facility] [...] 01/02/2025 2:40 PM EDT Procedure Visit [facility] 112 [facility] 120 [place] [address] Alex Tam DPM 0540 [facility] 5 [place] [address] documented as of this encounter [...] filedocumented in this encounter Care Teams Manager People Relationship Specialty Start Date End Date Roc Steele MD [address] [facility] 110 [place] [address] PCP - ACO Reach 09/22/22 06/29/23 Roc Steele MD [address] [facility] [address] [place] [address] PCP - General Internal Medicine 09/28/22 Roc Steele MD [address] [facility] [address] [place] [address] PCP - ACO Reach 08/30/23 Luis Felipe Dugan DO [address] [place] [address] Referring Physician Neurology 03/07/24 Raya Holt, CARMEN [address] [place] [address] Clinical Advocate Family Medicine 06/07/24 07/19/24 Gladis Laird LPN [address] [facility] 110 [place] [address] 07/19/24 documented as of this encounter
--- OUTSIDE RECORDS SUMMARY | 2024-12-26 11:33 | XMS_ITS | Encounter Summary ---
Author Organization [facility] Address [address] [place] [address] Care Team Providers Care Healthcare Administrative Assistant Name Role Phone Roc Steele MD Primary Care Provider [phone] Roc Steele MD Unavailable [phone] Luis Felipe Dugan DO Unavailable [phone] Raya Holt RN Unavailable [phone] Gladis Laird LPN Unavailable Encounter Details Date Type Department Care Team (Late st Contact Info) Description 07/11/2024 Abstract [facility] [place] [facility] [address] [facility] 110 [place] [address] Roc Steele MD [address] [facility] [address] [place] [address] Social History Tobacco Use Types Packs/Day Years [...] How often do you attend chur or holiness services? Never 11/25/2022 Do you [...] Recorded Patient Health Questionnaire-2 Score 0 07/11/2024 [facility] [place] of Occupat ional Health - Occupational Stress [...] [facility] [address] [place] 120 [place] [address] Alex Tam, DPM 3006 [facility] 5 [place] [address] documented as of this encounter Visit Diagnoses Not on filedocumented in this encounter Additional Health Concerns Assessment Noted Time PHQ-9 Depression Total Score: 0 07/06/19 24 3:00 PM EST documented as of this encounter Care Teams Healthcare Administrative Assistant Relationship Specialty Start Date End Date Roc Steele MD [address] [facility] 110 [place] [address] PCP - General Internal Medicine 09/28/22 Roc Steele MD [address] [facility] 110 [place] [address] PCP - ACO Reach 08/30/23 Luis Felipe Dugan DO [address] [place], [place] [address] Referring Physician Neurology 03/07/24 Raya Holt, CARMEN [address] [place] [address] Clinical Advocate Family Medicine 06/07/24 07/19/24 Gladis Laird LPN [address] [facility] 110 [place] [address] 07/19/24 documented as of this encounter
--- OUTSIDE RECORDS SUMMARY | 2024-12-26 11:33 | XMS_ITS | Encounter Summary ---
Author Organization [facility] Address [address] [place] [address] Care Team Providers Care Infertility Nurse Name Role Phone Roc Steele MD Primary Care Provider Roc Steele MD Unavailable [phone] Bull Duganjulianojean-claude JORDAN Unavailable [phone] Gladis Laird LPN Unavailable Encounter Details Date Type Department Care Team (Late st Contact Info) Description 07/23/2024 Abstract [facility] [place] [facility] [address] [facility] 110 [place] [address] Roc Steele MD 112 [facility] 110 [place] [address] Social History Tobacco Use Types Packs/Day Years [...] Recorded Patient Health Questionnaire-2 Score 0 07/11/2024 [facility] of Occupat ional Health [...] Upcoming Encounters Date Type Department Care Team ([facility] st Contact Info) Description 01/02/2025 2:40 PM EDT Procedure Visit [facility] [address] [place] 120 [place] [address] Alex Tam DPRen 3003 [facility] 5 [place] [address] documented as of this encounter Visit Diagnoses Not on filedocumented in this encounter Additional Health Concerns Assessment Noted Time PHQ-9 Depression Total Score: 0 07/06/19 24 3:00 PM EST documented as of this encounter Care Teams Infertility Nurse Relationship Specialty Start Date End Date Roc Steele MD 112 [facility] [place] 110 [place], [place] [address] PCP - General Internal Medicine 09/28/22 Roc Steele MD [address] [place] 110 [place] [address] PCP - ACO Reach 08/30/23 Luis Felipe Dugan DO [address] [place] [address] Referring Physician Neurology 03/07/24 Gladis Laird LPN [address] [place] [address] [place] [address] 07/19/24 documented as of this encounter
--- OUTSIDE RECORDS SUMMARY | 2024-12-26 11:33 | XMS_ITS | Encounter Summary ---
Author Organization [facility] Address [address] [place] [address] Care Team Providers Care Life Advisor Name Role Phone Roc Steele MD Primary Care Provider [phone] Roc Steele MD Unavailable [phone] Bull Duganjulianojean-claude JORDAN Unavailable [phone] Gladis Laird LPN Unavailable Encounter Details Date Type Department Care Team (Late st Contact Info) Description 11/18/2024 Abstract [facility] [place] [facility] [address] [facility] 110 [place] [address] Roc Steele MD 112 [facility] 110 [place] [address] Social History Tobacco Use Types Packs/Day Years [...] any clubs o r organizations such as mormon groups, unions, fraternal or athletic groups, or [...] Recorded Patient Health Questionnaire-2 Score 0 10/16/2024 [facility] of Occupat ional Health - Occupational Stress [...] Upcoming Encounters Date Type Department Care Team ([facility] st Contact Info) Description 01/02/2025 2:40 PM EDT Procedure Visit [facility] [address] [place] 120 [place] [address] Alex Tam DPRen 3002 [facility] 5 [place] [address] documented as of this encounter Visit Diagnoses Not on filedocumented in this encounter Additional Health Concerns Assessment Noted Time PHQ-9 Depression Total Score: 0 07/06/19 24 3:00 PM EST documented as of this encounter Care Teams Life Advisor Relationship Specialty Start Date End Date Roc Steele MD 112 [facility] [place] [address] [place], [place] [address] PCP - General Internal Medicine 09/28/22 Roc Steele MD [address] [place] [address] [place] [address] PCP - ACO Reach 08/30/23 Luis Felipe Dugan DO [address] [place] [address] Referring Physician Neurology 03/07/24 Gladis Laird LPN [address] [place] [address] [place] [address] 07/19/24 documented as of this encounter
--- OUTSIDE RECORDS SUMMARY | 2024-12-26 11:33 | XMS_ITS | Encounter Summary ---
Author Organization [facility] Address [address] [place] [address] Care Team Providers Care Railcar Switcher Name Role Phone Roc Steele MD Primary Care Provider [phone] Roc Steele MD Unavailable [phone] Luis Felipe Dugan DO Unavailable [phone] Raya Holt RN Unavailable [phone] Gladis Laird LPN Unavailable Encounter Details Date Type Department Care Team (Late st Contact Info) Description 05/16/2024 Abstract [facility] [place] [facility] [address] [facility] 110 [place] [address] Roc Steele MD [address] [facility] 110 [place] [address] Social History Tobacco Use Types Packs/Day Years [...] How often do you attend chur or scientology services? Never 11/25/2022 Do you belong to any clubs o r organizations such as jainism groups, unions, fraternal or athletic groups, or [...] Recorded Patient Health Questionnaire-2 Score 0 07/06/2023 [facility] [place] of Occupat ional Health - Occupational Stress [...] Procedure Visit [facility] 112 [facility] [place] [address] [place] [address] Alex Tam DPM 8[address] [facility] 5 [place] [address] documented as of this encounter Visit Diagnoses Not on filedocumented in this encounter Additional Health Concerns Assessment Noted Time PHQ-9 Depression Total Score: 0 07/06/19 24 3:00 PM EST documented as of this encounter Care Teams Railcar Switcher Relationship Specialty Start Date End Date Roc Steele MD [address] [place] [address] [place] [address] PCP - General Internal Medicine 09/28/22 Roc Steele MD [address] [facility] [address] [place] [address] PCP - ACO Reach 08/30/23 Luis Felipe Dugan DO [address] [place] [address] Referring Physician Neurology 03/07/24 Raya Holt, RN [address] [place] [address] Clinical Advocate Family Medicine 06/07/24 07/19/24 Gladis Laird LPN [address] [facility] 110 [place] [address] 07/19/24 documented as of this encounter
--- OUTSIDE RECORDS SUMMARY | 2024-12-26 11:33 | XMS_ITS | Encounter Summary ---
Author Organization [facility] Address [address] [place] [address] Care Team Providers Care Anesthesia Tech Name Role Phone Roc Steele MD Primary Care Provider [phone] Roc Steele MD Unavailable [phone] Luis Felipe Dugan DO Unavailable [phone] Raya Holt RN Unavailable [phone] Gladis Laird LPN Unavailable Encounter Details Date Type Department Care Team (Late st Contact Info) Description 06/10/2024 Orders Only [facility] [place] [facility] [address] [place] [address] [place] [address] Unallocated, Noms Provider, [address] [place], [place] [address] Social History Tobacco Use Types Packs/Day Years [...] How often do you attend chur or jainism services? Never 11/25/2022 Do you [...] Recorded Patient Health Questionnaire-2 Score 0 07/06/2023 [facility] [place] of Occupat ional Health - Occupational Stress [...] CI PODIATRY 112 [facility] 120 [place] [address] Alex Tam DPM 3315 [facility] 5 [place] [address] documented as of this encounter [...] documented as of this encounter Care Teams Anesthesia Tech Relationship Specialty Start Date End Date Roc Steele MD [address] [place] [address] [place] [address] PCP - General Internal Medicine 09/28/22 Roc Steele MD [address] [place] [address] [place] [address] PCP - ACO Reach 08/30/23 Luis Felipe Dugan DO [address] [place] [address] Referring Physician Neurology 03/07/24 Raya Holt, RN [address] [place] [address] Clinical Advocate Family Medicine 06/07/24 07/19/24 Gladis Laird LPN [address] [place] [address] [place] [address] 07/19/24 documented as of this encounter
--- OUTSIDE RECORDS SUMMARY | 2024-12-26 11:33 | XMS_ITS | Encounter Summary ---
Author Organization [facility] Address [address] [place] [address] Care Team Providers Care Urologist Md Name Role Phone Roc Steele MD Primary Care Provider [phone] Roc Steele MD Unavailable [phone] Luis Felipe Dugan DO Unavailable [phone] Gladis Laird LPN Unavailable Encounter Details Date Type Department Care Team (Latest Contact Info) Description 12/03/2024 [facility] [address] [place] [address] [place] [address] MR LUMBAR SPINE WO CON Social History Tobacco Use Types Packs/Day Years [...] How often do you attend chur or orthodox services? Never 11/25/2022 Do you belong [...] Recorded Patient Health Questionnaire-2 Score 0 10/16/2024 [facility] of Occupat ionla Health - Occupational Stress [...] Upcoming Encounters Date Type Department Care Team ([facility] st Contact Info) Description 01/02/2025 2:40 PM EDT Procedure Visit [facility] 112 [facility] 120 [place] [address] Alex Tam DPM 3006 [facility] 5 [place] [address] documented as of this encounter Visit Diagnoses Not on filedocumented in this encounter Additional Health Concerns Assessment Noted Time PHQ-9 Depression Total Score: 0 07/06/19 24 3:00 PM EST documented as of this encounter Care Teams Urologist Md Relationship Specialty Start Date End Date Roc Steele MD 112 [facility] 110 [place] [address] PCP - General Internal Medicine 09/28/22 Roc Steele MD [address] [facility] 110 [place] [address] PCP - ACO Reach 08/30/23 Luis Felipe Dugan DO [address] [place] [address] Referring Physician Neurology 03/07/24 Gladis Laird LPN [address] [facility] 110 [place] [address] 07/19/24 documented as of this encounter
--- OUTSIDE RECORDS SUMMARY | 2024-12-26 11:34 | XMS_ITS | Encounter Summary ---
Author Organization [facility] Address [address] [place] [address] Care Team Providers Care Product Technology Scientist Name Role Phone Roc Steele MD Primary Care Provider [phone] Roc Steele MD Unavailable [phone] Luis Felipe Dugan DO Unavailable [phone] Raya Holt RN Unavailable [phone] Gladis Laird LPN Unavailable Encounter Details Date Type Department Care Team (Late st Contact Info) Description 05/20/2024 Abstract [facility] [place] [facility] [address] [facility] 110 [place] [address] Roc Steele MD [address] [facility] [address] [place] [address] Social History Tobacco Use Types Packs/Day Years [...] any clubs o r organizations such as caodaism groups, unions, fraternal or athletic groups, or [...] Recorded Patient Health Questionnaire-2 Score 0 07/06/2023 [facility] of Occupat ional Health - Occupational [...] Procedure Visit [facility] 112 [facility] [place] 120 [place] [address] Alex Tam DPM 2842 [facility] [place] [facility] 5 [place] [address] documented as of this encounter Visit Diagnoses Not on filedocumented in this encounter Additional Health Concerns Assessment Noted Time PHQ-9 Depression Total Score: 0 07/06/19 24 3:00 PM EST documented as of this encounter Care Teams Product Technology Scientist Relationship Specialty Start Date End Date Roc Steele MD [address] [place] [address] [place] [address] PCP - General Internal Medicine 09/28/22 Roc Steele MD [address] [facility] [address] [place] [address] PCP - ACO Reach 08/30/23 Luis Felipe Dugan DO [address] [place] [address] Referring Physician Neurology 03/07/24 Raya Holt, RN [address] [place] [address] Clinical Advocate Family Medicine 06/07/24 07/19/24 Gladis Laird LPN [address] [facility] 110 [place] [address] 07/19/24 documented as of this encounter
--- OUTSIDE RECORDS SUMMARY | 2024-12-26 11:34 | XMS_ITS | Encounter Summary ---
Author Organization [facility] Address [address] [place] [address] Care Team Providers Care Long Winder Tender Name Role Phone Roc Steele MD Primary Care Provider [phone] Roc Steele MD Unavailable [phone] Luis Felipe Dugan DO Unavailable [phone] Raya Holt RN Unavailable [phone] Gladis Laird LPN Unavailable Encounter Details Date Type Department Care Team (Late st Contact Info) Description 05/30/2024 Abstract [facility] [place] [facility] [address] [place] 110 [place] [address] Roc Steele MD [address] [facility] [address] [place] [address] Social History Tobacco Use Types Packs/Day Years [...] How often do you attend chur or pentecostal services? Never 11/25/2022 Do you [...] Recorded Patient Health Questionnaire-2 Score 0 07/06/2023 [facility] [place] of Occupat ional Health - Occupational Stress [...] Procedure Visit [facility] 112 [facility] [address] [place] [address] Alex Tam DPM 9579 [facility] 5 [place] [address] documented as of this encounter Visit Diagnoses Not on filedocumented in this encounter Additional Health Concerns Assessment Noted Time PHQ-9 Depression Total Score: 0 07/06/19 24 3:00 PM EST documented as of this encounter Care Teams Long Winder Tender Relationship Specialty Start Date End Date Roc Steele MD [address] [place] [address] [place] [address] PCP - General Internal Medicine 09/28/22 Roc Steele MD [address] [facility] [address] [place] [address] PCP - ACO Reach 08/30/23 Luis Felipe Dugan DO [address] [place] [address] Referring Physician Neurology 03/07/24 Raya Holt, RN [address] [place] [address] Clinical Advocate Family Medicine 06/07/24 07/19/24 Gladis Laird LPN [address] [facility] 110 [place] [address] 07/19/24 documented as of this encounter
--- OUTSIDE RECORDS SUMMARY | 2024-12-26 11:34 | XMS_ITS | Encounter Summary ---
Author Organization [facility] Address [address] [place] [address] Care Team Providers Care Pilling Machine Operator Name Role Phone Roc Steele MD Primary Care Provider [phone] Roc Steele MD Unavailable [phone] Luis Felipe Dugan DO Unavailable [phone] Raya Holt RN Unavailable [phone] Gladis Laird LPN Unavailable Encounter Details Date Type Department Care Team (Late st Contact Info) Description 07/13/2023 Abstract [facility] [place] [facility] [address] [facility] 110 [place] [address] Roc Steele MD [address] [facility] [address] [place] [address] Social History Tobacco Use Types Packs/Day Years [...] How often do you attend chur or christian services? Never 11/25/2022 Do you [...] Score 0 07/06/2023 [facility] of Occupat ional Health - Occupational [...] Upcoming Encounters Date Type Department Care Team ([facility] Contact Info) Description 01/02/2025 2:40 PM EDT Procedure Visit [facility] 112 [facility] 120 [place] [address] Alex Tam DPM 3006 [facility] 5 [place] [address] documented as of this encounter Visit Diagnoses Not on filedocumented in this encounter Additional Health Concerns Assessment Noted Time PHQ-9 Depression Total Score: 0 07/06/19 24 3:00 PM EST documented as of this encounter Care Teams Pilling Machine Operator Relationship Specialty Start Date End Date Roc Steele MD 112 [facility] 110 [place] [address] PCP - General Internal Medicine 09/28/22 Roc Steele MD [address] [facility] 110 [place] [address] PCP - ACO Reach 08/30/23 Luis Felipe Dugan DO [address] [place] [address] Referring Physician Neurology 03/07/24 Raya Holt, CARMEN [address] [place], [place] [address] Clinical Advocate Family Medicine 06/07/24 07/19/24 Gladis Laird LPN [address] [place] [facility] 110 [place] [address] 07/19/24 documented as of this encounter
--- OUTSIDE RECORDS SUMMARY | 2024-12-26 11:34 | XMS_ITS | Encounter Summary ---
Author Organization [facility] Address [address] [place] [address] Care Team Providers Care Wardrobe Specialty Worker Name Role Phone oRc Steele MD Primary Care Provider [phone] Roc Steele MD Unavailable [phone] RitchieBulljulianojean-claude JORDAN Unavailable [phone] Gladis Laird LPN Unavailable Encounter Details Date Type Department Care Team (Late st Contact Info) Description 10/01/2024 Abstract [facility] [place] [facility] [address] [facility] 110 [place] [address] Roc Steele MD 112 [facility] 110 [place] [address] Social History Tobacco Use Types Packs/Day Years [...] often do you attend chur ch or spiritism services? Never 11/25/2022 Do you belong to [...] Recorded Patient Health Questionnaire-2 Score 0 08/19/2024 [facility] of Occupat ional Health - Occupational Stress [...] Upcoming Encounters Date Type Department Care Team ([facility] st Contact Info) Description 01/02/2025 2:40 PM EDT Procedure Visit [facility] [address] [place] [address] Alex Tam DPRen 3004 [facility] 5 [place] [address] documented as of this encounter Visit Diagnoses Not on filedocumented in this encounter Additional Health Concerns Assessment Noted Time PHQ-9 Depression Total Score: 0 07/06/19 24 3:00 PM EST documented as of this encounter Care Teams Wardrobe Specialty Worker Relationship Specialty Start Date End Date Roc Steele MD 112 [facility] [address] [place], [place] [id number] PCP - General Internal Medicine 09/28/22 Roc Steele MD [address] [place] [address] PCP - ACO Reach 08/30/23 Luis Felipe Dugan DO [address] [place] [address] Referring Physician Neurology 03/07/24 Gladis Laird LPN [address] [place] [address] 07/19/24 documented as of this encounter
--- OUTSIDE RECORDS SUMMARY | 2024-12-26 11:34 | XMS_ITS | Encounter Summary ---
Author Organization [facility] Address [address] [place] [address] Care Team Providers Care Swimming Pool Attendant Name Role Phone Roc Steele MD Unavailable [phone] Roc Steele MD Primary Care Provider [phone] Roc Steele MD Unavailable [phone] Luis Felipe Dugan DO Unavailable [phone] Raya Holt RN Unavailable [phone] Gladis Laird LPN Unavailable Encounter Details Date Type Department Care Team (Late st Contact Info) Description 12/07/2022 Abstract [facility] [place] [facility] [address] [facility] 110 [place] [address] oRc Steele MD [address] [facility] 110 [place], [place] [address] Social History Tobacco Use Types Packs/Day Years [...] often do you attend chur ch or episcopal services? Never 11/25/2022 Do you belong to [...] and heating? Not hard at all 11/25/2022 [employer] of Occupat ional Health - Occupational Stress [...] Upcoming Encounters Date Type Department Care Team ([facility] Contact Info) Description 01/02/2025 2:40 PM EDT Procedure Visit [facility] [address] [facility] 120 [place] [address] Alex Tam DPM 3006 [facility] 5 [place] [address] documented as of this encounter Visit Diagnoses Not on filedocumented in this encounter Care Teams Swimming Pool Attendant Relationship Specialty Start Date End Date Roc Steele MD [address] [facility] 110 [place] [address] PCP - ACO Reach 09/22/22 06/29/23 Roc Steele MD [address] [facility] 110 [place] [address] PCP - General Internal Medicine 09/28/22 Roc Steele MD [address] [facility] 110 [place] [address] PCP - ACO Reach 08/30/23 Luis Felipe Dugan DO [address] [place] [address] Referring Physician Neurology 03/07/24 Raya Holt, CARMEN [address] [place] [address] Clinical Advocate Family Medicine 06/07/24 07/19/24 Gladis Laird LPN [address] [facility] 110 [place] [address] 07/19/24 documented as of this encounter
--- OUTSIDE RECORDS SUMMARY | 2024-12-26 11:34 | XMS_ITS | Encounter Summary ---
Author Organization [facility] Address [address] [place] [address] Care Team Providers Care Cargo Operations Agent Name Role Phone Roc Steele MD Unavailable [phone] Roc Steele MD Primary Care Provider [phone] Roc Steele MD Unavailable [phone] Luis Felipe Dugan DO Unavailable [phone] Raya Holt RN Unavailable [phone] Gladis Laird LPN Unavailable Encounter Details Date Type Department Care Team (Late st Contact Info) Description 11/23/2022 Orders Only [facility] [place] [facility] [address] [place] [address] A, Unknown Practice [address] [place] [address] Social History Tobacco Use Types Packs/Day Years [...] and heating? Not hard at all 11/25/2022 [facility] of Occupat ional Health - [...] Assessment Author 1 11/25/2022 10:39 AM EDT MondayLydia LPN * Question Answer Date of Assessment Author Q1: How often do you have a drink containing alcohol? Monthly or less 11/25/2022 10:39 AM EDT MondayLydia L PN Q2: How many drinks containing alcohol do you have on a typical day when you are drinking? 1 or 2 11/25/2022 10:39 AM EDT MondayLydia L PN Q3: How often do you have six or more drinks on one occasion? Never 11/25/2022 10:39 AM EDT MondayLydia L PN documented as of this encounter Plan of Treatment Upcoming Encounters Date Type Department Care Team (Late st Contact Info) Description 01/02/2025 2:40 PM EDT Procedure Visit [facility] 112 [facility] 120 [place] [address] Alex Tam DPM 9398 [facility] 5 [place] [address] documented as of this encounter Procedures Procedure [...] on filedocumented in this encounter Care Teams Cargo Operations Agent Relationship Specialty Start Date End Date Roc Steele MD [address] [place] [address] PCP - ACO Reach 09/22/22 06/29/23 Roc Steele MD [address] [facility] 110 [place] [address] PCP - General Internal Medicine 09/28/22 Roc Steele MD [address] [place] [address] PCP - ACO Reach 08/30/23 Luis Felipe Dugan DO [address] [place] [address] Referring Physician Neurology 03/07/24 Raya Holt, CARMEN [address] [place] [address] Clinical Advocate Family Medicine 06/07/24 07/19/24 Gladis Laird LPN [address] [place] [address] 07/19/24 documented as of this encounter
--- OUTSIDE RECORDS SUMMARY | 2024-12-26 11:34 | XMS_ITS | Encounter Summary ---
Author Organization [facility] Address [address] [place] [address] Care Team Providers Care Engine Repairer Production Name Role Phone Roc Steele MD Primary Care Provider [phone] Roc Steele MD Unavailable [phone] Bull Duganjulianojean-claude JORDAN Unavailable [phone] Gladis Laird LPN Unavailable Encounter Details Date Type Department Care Team (Late st Contact Info) Description 08/19/2024 Abstract [facility] [place] [facility] [address] [facility] 110 [place] [address] Roc Steele MD 112 [facility] 110 [place] [address] Social History Tobacco Use Types Packs/Day Years [...] often do you attend chur ch or quaker services? Never 11/25/2022 Do you belong to any clubs o r organizations such as buddhist groups, unions, fraternal or athletic groups, or [...] Recorded Patient Health Questionnaire-2 Score 0 08/19/2024 [employer] of Occupat ional Health - [...] Upcoming Encounters Date Type Department Care Team ([facility] st Contact Info) Description 01/02/2025 2:40 PM EDT Procedure Visit [facility] 112 [facility] 120 [place] [address] Alex Tam DPM 2045 [facility] 5 [place] [address] documented as of this encounter Visit Diagnoses Not on filedocumented in this encounter Additional Health Concerns Assessment Noted Time PHQ-9 Depression Total Score: 0 07/06/19 24 3:00 PM EST documented as of this encounter Care Teams Engine Repairer Production Relationship Specialty Start Date End Date Roc Steele MD 112 [facility] 110 [place], [place] [address] PCP - General Internal Medicine 09/28/22 Roc Steele MD 112 [facility] 110 [place] [address] PCP - ACO Reach 08/30/23 Luis Felipe Dugan DO [address] [place] [address] Referring Physician Neurology 03/07/24 Gladis Laird LPN 112 [facility] 110 [place] [address] 07/19/24 documented as of this encounter
--- OUTSIDE RECORDS SUMMARY | 2024-12-26 11:34 | XMS_ITS | Clinical Summary ---
Author Organization [facility] Address [address] [place] [address] Care Team Providers Care Sterile Technician Name Role Phone Roc Steele MD Primary Care Provider [phone] Roc Steele MD Unavailable [phone] Luis Felipe Dugan DO Unavailable Gladis Laird LPN Unavailable Allergies Active Allergy Reactions Criticality Noted Date Comments Ciprofloxacin 09/30/2022 Other Reaction(s): Unknown Clarithromycin 09/30/2022 Other Reaction(s): Unknown Moxifloxacin Anaphylaxis High 09/30/2022 Other Reaction(s): Tongue Swelling ; Trouble Breathing Sulfanilamide 09/30/2022 Other Reaction(s): Unkown Medications Multiple Vitamin (Multi Vitamin) tablet 1 (one) time each day at the same time. Active Calcium Carb-Cholecalcifer ol 600-20 MG-MCG chewable tablet calcium carb 600 mg(1,500 mg)-vit D3 400 unit-minerals chewable tablet Take by oral route. Active ALPRAZolam (Xanax) 0.25 MG tabletIndications: Anxiety Take 1 tablet (0.25 mg) by mouth 2 (two) times a day as needed for anxiety 60 tablet 4 Active furosemide (Lasix) 20 MG tabletIndications: Cardiomegaly,Chron ic congestive heart failure, unspecified heart failure type (HCC) Take 1 tablet (20 mg) by mouth Daily 90 tablet 3 5 07/19/19 26 Active albuterol HFA (Ventolin HFA) 90 mcg/act inhalerIndications :SOB (shortness of breath),Chronic cough Inhale 2 puffs every 4 (four) hours if needed for wheezing or shortness of breath (cough) 54 g 3 5 08/02/19 26 Active fexofenadine (Radha) 180 MG tabletIndications: Seasonal allergic rhinitis, unspecified trigger Take 1 tablet (180 mg) by mouth Daily as needed (alleriges) 90 tablet 3 5 08/02/19 26 Active denosumab (Prolia) 60 MG/ML solution prefilled syringeIndications :Age-related osteoporosis without current pathological fracture Inject 1 mL (60 mg) under the skin 1 (one) time for 1 dose 1 mL 5 Active pantoprazole (ProtoNix) 40 MG EC tabletIndications: Gastroesophageal reflux disease with esophagitis without hemorrhage TAKE 1 TABLET BY MOUTH ONCE DAILY 90 tablet 3 5 Active zolpidem (Ambien) 10 MG tabletIndications: Primary insomnia TAKE 1 TABLET BY MOUTH AT BEDTIME 90 tablet 5 Active gabapentin (Neurontin) 300 MG capsuleIndications :Acute low back pain without sciatica, unspecified back pain laterality Take 1 capsule (300 mg) by mouth in the morning and 1 capsule (300 mg) before bedtime. 200 capsule 3 5 Active tiZANidine (Zanaflex) 4 MG tabletIndications: Primary insomnia TAKE 1 TABLET BY MOUTH EVERY 8 HOURS NEEDED 270 tablet 5 Active meloxicam (Mobic) 15 MG tabletIndications: Primary osteoarthritis involving multiple joints TAKE 1 TABLET BY MOUTH ONCE DAILY 90 tablet 3 5 Active metoprolol succinate XL (Toprol-XL) 50 MG 24 hr tabletIndications: Benign essential hypertension TAKE 1 TABLET BY MOUTH IN THE MORNING AND 1 TABLET BY MOUTH BEFORE BEDTIME 180 tablet 3 5 Active nortriptyline (Pamelor) 10 MG capsuleIndications :Primary insomnia,Anxiety TAKE 3 CAPSULES BY MOUTH AT BEDTIME ONCE DAILY 270 capsule 3 5 Active simvastatin (Zocor) 10 MG tabletIndications: Hyperlipidemia, unspecified hyperlipidemia type TAKE 1 TABLET BY MOUTH ONCE DAILY 90 tablet 3 5 Active Active Problems Problem Noted Date Diagnosed [...] Encounters Date Type Department Care Team Description 12/03/2024 Results Follow-Up [facility] [place] [facility] [address] [facility] 110 [place] [address] MR LUMBAR SPINE WO CON 11/18/2024 [facility] [address] [facility] 110 [place] [address] Roc Steele MD 10/29/2024 Patient Outreach [facility] [place] [address] Gladis Laird LPN 10/16/2024 11:30 AM EDT Office Visit [facility] [place] [facility] [address] [facility] 110 [place] [address] Aarti Castillo, MACHINE INSTALLER Acute low back pain without sciatica, unspecified back pain laterality (Primary Dx) 10/16/2024 Refill [facility] [place] [facility] 112 [facility] 110 [place] [address] Roc Steele MD Lumbosacral spondylosis without myelopathy 10/16/2024 Bamboo flowsheet [facility] [place] [facility] 112 [facility] 110 [place] [address] Aarti Castillo, MACHINE INSTALLER 10/16/2024 Travel 10/10/2024 3:00 PM EDT Procedure Visit [facility] 112 [facility] 120 [place] [address] Alex Tam, DPM Pain due to onychomycosis of toenails of both feet (Primary Dx) 10/10/2024 Travel 10/10/2024 [facility] [place] [facility] 112 [facility] 110 [place] [address] Roc Steele MD Primary insomnia; Anxiety; Hyperlipidemia, unspecified hyperlipidemia type 10/10/2024 [facility] [place] [facility] 112 [facility] 110 [place] [address] Aarti Castillo, DEISY Primary osteoarthritis involving multiple joints; Benign essential hypertension 10/07/2024 Refill [facility] [place] [facility] 112 [facility] 110 [place] [address] Aarti Castillo, DEISY Primary insomnia 10/02/2024 Refill [facility] [place] [facility] 112 [facility] 110 [place] [address] Aarti Castillo, DEISY Acute low back pain without sciatica, unspecified back pain laterality 10/01/2024 Clinisync Result Encounter N[facility] External Department Unsolicited Provider, Generic External Data 10/01/2024 Abstract [facility] [place] [facility] 112 [facility] 110 [place] [address] Roc Steele MD from Last 3 Months Immunizations Immunization Administration [...] often do you attend chur ch or jewish services? Never 11/25/2022 Do you [...] Recorded Patient Health Questionnaire-2 Score 0 10/16/2024 [facility] Questionnaire Answer Date [...] CI PODIATRY 112 [facility] 120 [place] [address] Alex Tam DPM 3000 [facility] 5 [place] [address] Health Maintenance Due Date Last [...] PM EDT Narrative 10/01/2024 2:37 [place] [address] Magnetic Resonance Report Signed Patient: USHA WALKER MR#: [id number] : 1945 Acct:[id number] Age/Sex: 78 / F ADM Date: 10/01/24 Loc: MRI Attending Dr: Ml Sanchez M.D. Ordering Physician: Ml Sanchez M.D. Date of Service: 10/01/24 Procedure(s): MR lumbar spine wo con Accession Number(s): [id number] cc: ROC STEELE ; Ml Sanchez M.D. The [place] [id number] Patient Name: USHA WALKER MRN: [id number] date: 1945 Sex: F Assigned Patient Location: MRI Current Patient Location: MRI Accession/Order Number: [id number] Exam Date: 10/01/2024 14:28 Report Date: 10/01/2024 [...] Bach M.D. 10/01/2024 2:34 PM Dictation Location: [place] [address] Electronically authenticated by: [id number] Y Date: 10/01/2024 14:34 Dictated By: Sj Bach M.D. Signed By: 10/01/24 1437 DD/ 1434 TD/TT: Aluminum Boat Inspector: Procedure Note Radiology, Radiologist, MD - 10/01/2024 [place] [address] Magnetic Resonance Report Signed Patient: USHA WALKER KMR#: [id number] : 1945cct:[id number] Age/Sex: 78 / FADM Date: 10/01/24 Loc: MRI Attending Dr: Ml Sanchez M.D. Ordering Physician: Ml Sanchez M.D. Date of Service: 10/01/24 Procedure(s): MR lumbar spine wo con Accession Number(s): [id number] cc: ROC STEELE ; Ml Sanchez M.D. The [place] [id number] Patient Name: USHA WALKER MRN: [id number] date: 1945 Sex: F Assigned Patient Location: MRI Current Patient Location: MRI Accession/Order Number: [id number] Exam Date: 10/01/2024 14:28 Report Date: 10/01/2024 [...] Bach M.D. 10/01/2024 2:34 PM Dictation Location: [place] [address] Electronically authenticated by: [id number] Y Date: 4:34 Dictated By: Sj Bach M.D. Signed By:10/01/24 1437 DD/ 1434 TD/TT: Aluminum Boat Inspector: us Generic External Data Provider [facility] Final Result * Colonoscopy (10/31/2012 12:00 PM EDT) Anatomical Region Laterality Modality Endoscopy 10/31/2012 12:0 0 PM EDT Narrative 10/31/2012 12:00 PM EDT PERFORMED AT [facility] LOCATION:[id number] DIVERTICULOSIS Procedure Note CONVERSION, GENERIC - 09/15/2022 PERFORMED AT [facility] LOCATION:[id number] DIVERTICULOSIS Roc Steele MD ENDOSCOPY PROCEDURE ORDERABLES Final Result from Last 3 Months or Most Recently Relevant to Health Maintenance Insurance [facility] MEDICARE Care Teams Sterile Technician Relationship Specialty Start Date End Date Roc Steele MD [address] [facility] 110 [place] [address] PCP - General Internal Medicine 09/28/22 Roc Steele MD [address] [place] [address] PCP - ACO Reach 08/30/23 Luis Felipe Dugan DO [address] [place] [address] Referring Physician Neurology 03/07/24 Gladis Laird LPN 112 [facility] 110 [place] [address] 07/19/24
--- OUTSIDE RECORDS SUMMARY | 2024-12-26 11:34 | XMS_ITS | Encounter Summary ---
Author Organization [facility] Address [address] [place] [address] Care Team Providers Care Warehouse Lead Name Role Phone Roc Steele MD Primary Care Provider [phone] Roc Steele MD Unavailable [phone] Bull Duganjulianojean-claude JORDAN Unavailable [phone] Gladis Laird LPN Unavailable Encounter Details Date Type Department Care Team (Late st Contact Info) Description 08/20/2024 Abstract [facility] [place] [facility] [address] [facility] 110 [place] [address] Roc Steele MD 112 [facility] 110 [place] [address] Social History Tobacco Use Types Packs/Day Years [...] Recorded Patient Health Questionnaire-2 Score 0 08/19/2024 [facility] of Occupat ional Health - Occupational [...] Upcoming Encounters Date Type Department Care Team ([facility] st Contact Info) Description 01/02/2025 2:40 PM EDT Procedure Visit [facility] [address] [place] [address] Alex Tam DPRen 3005 [facility] 5 [place] [address] documented as of this encounter Visit Diagnoses Not on filedocumented in this encounter Additional Health Concerns Assessment Noted Time PHQ-9 Depression Total Score: 0 07/06/19 24 3:00 PM EST documented as of this encounter Care Teams Warehouse Lead Relationship Specialty Start Date End Date Roc Steele MD 112 [facility] [address] [place], [place] [address] PCP - General Internal Medicine 09/28/22 Roc Steele MD [address] [place] [address] PCP - ACO Reach 08/30/23 Luis Felipe Dugan DO [address] [place] [address] Referring Physician Neurology 03/07/24 Gladis Laird LPN [address] [place] [address] 07/19/24 documented as of this encounter
--- OUTSIDE RECORDS SUMMARY | 2024-12-26 11:34 | XMS_ITS | Encounter Summary ---
Author Organization [facility] Address [address] [place] [address] Care Team Providers Care Jet Dyeing Machine Operator Name Role Phone Roc Steele MD Primary Care Provider [phone] Roc Steele MD Unavailable [phone] Luis Feilpe Dugan DO Unavailable [phone] Raya Holt RN Unavailable [phone] Gladis Laird LPN Unavailable Encounter Details Date Type Department Care Team (Late st Contact Info) Description 10/16/2023 Abstract [facility] [place] [facility] [address] [facility] 110 [place] [address] Roc Steele MD [address] [facility] 110 [place] [address] Social History Tobacco Use Types Packs/Day Years [...] How often do you attend chur or restorationist services? Never 11/25/2022 Do you [...] 0 07/06/2023 [facility] of Occupat ional Health - [...] Upcoming Encounters Date Type Department Care Team ([facility] Contact Info) Description 01/02/2025 2:40 PM EDT Procedure Visit [facility] 112 [facility] 120 [place] [address] Alex Tam DPM 3006 [facility] 5 [place] [address] documented as of this encounter Visit Diagnoses Not on filedocumented in this encounter Additional Health Concerns Assessment Noted Time PHQ-9 Depression Total Score: 0 07/06/19 24 3:00 PM EST documented as of this encounter Care Teams Jet Dyeing Machine Operator Relationship Specialty Start Date End Date Roc Steele MD 112 [facility] 110 [place] [address] PCP - General Internal Medicine 09/28/22 Roc Steele MD [address] [facility] 110 [place] [address] PCP - ACO Reach 08/30/23 Luis Felipe Dugan DO [address] [place] [address] Referring Physician Neurology 03/07/24 Raya Holt, CARMEN [address] [place], [place] [address] Clinical Advocate Family Medicine 06/07/24 07/19/24 Gladis Laird LPN [address] [facility] 110 [place] [address] 07/19/24 documented as of this encounter
--- OUTSIDE RECORDS SUMMARY | 2024-12-26 11:34 | XMS_ITS | Encounter Summary ---
Author Organization [facility] Address [address] [place] [address] Care Team Providers Care Crm Campaign Manager Name Role Phone Roc Steele MD Primary Care Provider [phone] Roc Steele MD Unavailable [phone] Luis Felipe Dugan DO Unavailable [phone] Raya Holt RN Unavailable [phone] Gladis Laird LPN Unavailable Encounter Details Date Type Department Care Team (Late st Contact Info) Description 05/21/2024 Abstract [facility] [place] [facility] [address] [facility] 110 [place] [address] Roc Steele MD [address] [facility] 110 [place] [address] Social History Tobacco Use Types Packs/Day Years [...] any clubs o r organizations such as scientologist groups, unions, fraternal or athletic groups, or [...] Patient Health Questionnaire-2 Score 0 07/06/2023 [facility] of Occupat ional Health - Occupational Stress [...] PODIATRY 112 [facility] [address] [place] [address] Alex Tam DPM 9790 [facility] 5 [place] [address] documented as of this encounter Visit Diagnoses Not on filedocumented in this encounter Additional Health Concerns Assessment Noted Time PHQ-9 Depression Total Score: 0 07/06/19 24 3:00 PM EST documented as of this encounter Care Teams Crm Campaign Manager Relationship Specialty Start Date End Date Roc Steele MD [address] [place] [address] PCP - General Internal Medicine 09/28/22 Roc Steele MD [address] [facility] [address] [place] [address] PCP - ACO Reach 08/30/23 Luis Felipe Dugan DO [address] [place] [address] Referring Physician Neurology 03/07/24 Raya Holt, RN [address] [place] [address] Clinical Advocate Family Medicine 06/07/24 07/19/24 Gladis Laird LPN [address] [facility] 110 [place] [address] 07/19/24 documented as of this encounter
--- OUTSIDE RECORDS SUMMARY | 2024-12-26 11:34 | XMS_ITS | Encounter Summary ---
Author Organization [facility] Address [address] [place] [address] Care Team Providers Care Education Trainer Name Role Phone Roc Steele MD Primary Care Provider [phone] Roc Steele MD Unavailable [phone] Luis Felipe Dugan DO Unavailable [phone] Raya Holt RN Unavailable [phone] Gladis Laird LPN Unavailable Encounter Details Date Type Department Care Team (Late st Contact Info) Description 06/04/2024 Abstract [facility] [place] [facility] [address] [facility] 110 [place] [address] Roc Steele MD [address] [facility] [address] [place] [address] Social History Tobacco Use Types Packs/Day Years [...] How often do you attend chur or episcopal services? Never 11/25/2022 Do you [...] Recorded Patient Health Questionnaire-2 Score 0 07/06/2023 [facility] [place] of Occupat ional Health - Occupational Stress [...] Procedure Visit [facility] 112 [facility] [address] [place] [address] Alex Tam DPM 3744 [facility] 5 [place] [address] documented as of this encounter Visit Diagnoses Not on filedocumented in this encounter Additional Health Concerns Assessment Noted Time PHQ-9 Depression Total Score: 0 07/06/19 24 3:00 PM EST documented as of this encounter Care Teams Education Trainer Relationship Specialty Start Date End Date Roc Steele MD [address] [place] [address] PCP - General Internal Medicine 09/28/22 Roc Steele MD [address] [facility] [address] [place] [address] PCP - ACO Reach 08/30/23 Luis Felipe Dugan DO [address] [place] [address] Referring Physician Neurology 03/07/24 Raya Holt, RN [address] [place] [address] Clinical Advocate Family Medicine 06/07/24 07/19/24 Gladis Laird LPN [address] [facility] 110 [place] [address] 07/19/24 documented as of this encounter
--- OUTSIDE RECORDS SUMMARY | 2024-12-26 11:34 | XMS_ITS | Encounter Summary ---
Author Organization [facility] Address [address] [place] [address] Care Team Providers Care Traveling Electrician Name Role Phone Roc Steele MD Primary Care Provider [phone] Roc Steele MD Unavailable [phone] Luis Felipe Dugan DO Unavailable [phone] Raya Holt RN Unavailable [phone] Gladis Laird LPN Unavailable Encounter Details Date Type Department Care Team (Late st Contact Info) Description 10/03/2023 Abstract [facility] [place] [facility] [address] [facility] 110 [place] [address] Roc Steele MD [address] [facility] 110 [place] [address] Social History Tobacco Use Types Packs/Day Years [...] How often do you attend chur or religion services? Never 11/25/2022 Do you belong to [...] Recorded Patient Health Questionnaire-2 Score 0 07/06/2023 [facility] of Occupat ional [...] Upcoming Encounters Date Type Department Care Team ([place] [facility] Contact Info) Description 01/02/2025 2:40 PM EDT Procedure Visit [facility] 112 [facility] 120 [place] [phone] Alex Tam DPM 3006 [facility] [address] [place] [address] documented as of this encounter Visit Diagnoses Not on filedocumented in this encounter Additional Health Concerns Assessment Noted Time PHQ-9 Depression Total Score: 0 07/06/19 24 3:00 PM EST documented as of this encounter Care Teams Traveling Electrician Relationship Specialty Start Date End Date Roc Steele MD 112 [facility] 110 [place] [address] PCP - General Internal Medicine 09/28/22 Roc Steele MD [address] [facility] 110 [place] [address] PCP - ACO Reach 08/30/23 Luis Felipe Dugan DO [address] [place] [address] Referring Physician Neurology 03/07/24 Raya Holt, CARMEN [address] [place], [place] [address] Clinical Advocate Family Medicine 06/07/24 07/19/24 Gladis Laird LPN [address] [facility] 110 [place] [address] 07/19/24 documented as of this encounter
--- OUTSIDE RECORDS SUMMARY | 2024-12-26 11:34 | XMS_ITS | Encounter Summary ---
Author Organization [facility] Address [address] [place] [address] Care Team Providers Care Volunteer Services Supervisor Name Role Phone Roc Steele MD Unavailable [phone] Roc Steele MD Primary Care Provider [phone] Roc Steele MD Unavailable [phone] Luis Felipe Dugan DO Unavailable [phone] Raya Holt RN Unavailable [phone] Gladis Laird LPN Unavailable Encounter Details Date Type Department Care Team (Late st Contact Info) Description 12/02/2022 Orders Only [facility] [place] [facility] [address] [place] [address] A, Unknown Practice [address] [place] [id number] Social History Tobacco Use Types Packs/Day Years [...] and heating? Not hard at all 11/25/2022 [facility] of Occupat ional Health - [...] PODIATRY 112 [facility] 120 [place] [address] Alex Tam DPM 3009 [facility] 5 [place] [address] documented as of this encounter Procedures Procedure [...] on filedocumented in this encounter Care Teams Volunteer Services Supervisor Relationship Specialty Start Date End Date Roc Steele MD [address] [place] [address] PCP - ACO Reach 09/22/22 06/29/23 Roc Steele MD [address] [facility] 110 [place] [address] PCP - General Internal Medicine 09/28/22 Roc Steele MD [address] [facility] 110 [place] [address] PCP - ACO Reach 08/30/23 Luis Felipe Dugan DO [address] [place] [address] Referring Physician Neurology 03/07/24 Raya Holt, RN [address] [place] [address] Clinical Advocate Family Medicine 06/07/24 07/19/24 Gladis Laird LPN 112 [facility] 110 [place] [address] 07/19/24 documented as of this encounter
--- OUTSIDE RECORDS SUMMARY | 2024-12-26 11:34 | XMS_ITS | Encounter Summary ---
Author Organization [facility] Address [address] [place] [address] Care Team Providers Care Site Identification Specialist Name Role Phone Roc Steele MD Primary Care Provider [phone] Roc Steele MD Unavailable [phone] Bull Duganjulianojean-claude JORDAN Unavailable [phone] Gladis Laird LPN Unavailable Encounter Details Date Type Department Care Team (Late st Contact Info) Description 08/20/2024 Abstract [facility] [place] [facility] [address] [facility] 110 [place] [address] Roc Steele MD 112 [facility] 110 [place] [address] Social History Tobacco Use Types Packs/Day Years [...] often do you attend chur ch or orthodoxy services? Never 11/25/2022 Do you [...] Patient Health Questionnaire-2 Score 0 08/19/2024 [facility] of Occupat [...] ([facility] st Contact Info) Description 01/02/2025 2:40 PM EDT Procedure Visit [facility] [address] [place] [address] Alex Tam DPRen 3000 [facility] 5 [place] [address] documented as of this encounter Visit Diagnoses Not on filedocumented in this encounter Additional Health Concerns Assessment Noted Time PHQ-9 Depression Total Score: 0 07/06/19 24 3:00 PM EST documented as of this encounter Care Teams Site Identification Specialist Relationship Specialty Start Date End Date Roc Steele MD 112 [facility] [address] [place], [place] [address] PCP - General Internal Medicine 09/28/22 Roc Steele MD [address] [place] [address] PCP - ACO Reach 08/30/23 Luis Felipe Dugan DO [address] [place] [address] Referring Physician Neurology 03/07/24 Gladis Laird LPN [address] [place] [address] 07/19/24 documented as of this encounter"
--- OUTSIDE RECORDS SUMMARY | 2024-12-26 11:34 | XMS_ITS | Encounter Summary ---
Author Organization [facility] Address [address] [place] [address] Care Team Providers Care Pain Medicine Physician Name Role Phone Roc Steele MD Unavailable [phone] Roc Steele MD Primary Care Provider Roc Steele MD Unavailable [phone] Luis Felipe Dugan DO Unavailable Raya Holt RN Unavailable [phone] Gladis Laird LPN Unavailable Encounter Details Date Type Department Care Team (Late st Contact Info) Description 11/14/2022 Orders Only [facility] [place] [facility] [address] [place] [address] Aarti Castillo, HOME HEALTH CARE WORKER [address] [place] [address] Social History Tobacco Use Types Packs/Day Years [...] PODIATRY [address] [place] [phone] Alex Tam DPM 3006 [facility] 5 [place] [address] documented as of this encounter Procedures Procedure Name Priority Date/Time Associated Diagnosis Comments HOME SLEEP TEST Routine 11/04/2022 8:25 AM EDT documented in this encounter Results * Home sleep test (11/04/2022 8:25 AM EDT) us Aarti Castillo HOME HEALTH CARE WORKER [facility]EP [facility] ORDERABLES Maggi l Result documented in this encounter Visit Diagnoses Not on filedocumented in this encounter Care Teams Pain Medicine Physician Relationship Specialty Start Date End Date Roc Steele MD [address] [place] [address] PCP - ACO Reach 09/22/22 06/29/23 Roc Steele MD [address] [place] [address] PCP - General Internal Medicine 09/28/22 Roc Steele MD [address] [place] [address] PCP - ACO Reach 08/30/23 Luis Felipe Dugan DO [address] [place] [address] Referring Physician Neurology 03/07/24 Raya Holt, CARMEN [address] [place] [address] Clinical Advocate Family Medicine 06/07/24 07/19/24 Gladis Laird LPN [address] [place] [address] 07/19/24 documented as of this encounter
--- OUTSIDE RECORDS SUMMARY | 2024-12-26 11:34 | XMS_ITS | Clinical Summary ---
Author Organization [facility] Address [address] [place] [address] Phone Care Team Providers Care Licensed Practical Vocational Nurse Name Role Phone Roc Steele MD Primary Care Provider Allergies Active Allergy Reactions Criticality Noted Date Comments Moxifloxacin Angioedema 07/15/2024 Ciprofloxacin Unknown 07/15/2024 Sulfa (Sulfonamide Antibiotics) Unknown 06/29 Medications HYDROcodone-acetami nophen (Cunningham) 5-325 mg tablet Take 1 tablet by mouth every 4 hours if needed for severe pain (7 - 10). 4 Active pantoprazole (ProtoNix) 40 mg EC tablet Take 1 tablet (40 mg) by mouth once daily. 4 Active nortriptyline (Pamelor) 10 mg capsule Take 3 capsules (30 mg) by mouth. 4 Active zolpidem (Ambien) 10 mg tablet Take [...] as needed at bedtime for anxiety. Active eazrcawzgtre-Su-rqv n-minerals tablet Take 1 tablet by mouth once daily. Active Prolia 60 mg/mL syringe Inject 1 mL (60 mg total) under the skin every 6 months. 5 Active gabapentin (Neurontin) 300 mg capsule Take 1 capsule (300 mg) by mouth twice a day. Active fexofenadine (Radha) 180 mg tablet Take 1 tablet (180 mg) by mouth once daily as needed. 5 08/02/19 Active calcium citrate-vitamin D3 (Citracal + D Maximum) 315 mg-6.25 mcg (250 unit) tablet Take 1 tablet (315 mg) by mouth once daily. Active metoprolol succinate XL (Toprol-XL) 50 mg 24 hr tabletIndications:P alpitations Take 1 tablet (50 mg) by mouth once daily in the morning. 90 tablet 3 5 11/16/19 Active simvastatin (Zocor) 10 mg tabletIndications:M ixed hyperlipidemia Take 1 tablet (10 mg) by mouth once daily at bedtime. 90 tablet 3 5 11/16/19 Active metoprolol succinate XL (Toprol XL) 100 mg 24 hr tabletIndications:P alpitations Take 1 tablet (100 mg) by mouth once daily at bedtime. Do not crush or chew. 90 tablet 3 5 11/16/19 Active isosorbide mononitrate ER (Imdur) 30 mg 24 hr tabletIndications:C hest discomfort Take 1 tablet (30 mg) by mouth once daily at bedtime. Do not crush or chew. 90 tablet 3 5 11/16/19 Active magnesium oxide (Mag-Ox) 400 mg (241.3 mg elemental) tabletIndications:P alpitations Take 1 tablet by mouth 2 times a day. 180 tablet 3 5 11/16/19 Active Active Problems Problem Noted Date Diagnosed Date CARO on CPAP 2024 At high risk for falls 07/15/2024 Uses roller walker 07/15/2024 Encounter to discuss test results 07/15/2024 Never smoked cigarettes 07/15/2024 Body mass index (BMI) 40.0-44.9, adult (Multi) 0 07/15/2024 Primary hypertension 07/15/2024 Carotid stenosis 07/15/2024 Paroxysmal supraventricular tachycardia 07/16/19 25 Palpitations 07/15/2024 Gastroesophageal reflux disease without esophagi tis 07/15/2024 Mixed hyperlipidemia 07/15/2024 CKD (chronic kidney disease) 07/15/2024 Abnormal EKG 07/15/2024 Chest discomfort 07/15/2024 Lightheadedness 07/15/2024 Encounters Date Type Department Care Team Description 11/20/2024 Travel 2024 2:15 PM EDT Office Visit [address] [phone] Rc Kern MD Encounter to discuss test results (Primary Dx); Uses roller walker; Palpitations; Mixed hyperlipidemia; Chest discomfort; CARO on CPAP; Paroxysmal supraventricular tachycardia; Never smoked cigarettes; Body mass index (BMI) 40.0-44.9, adult (Multi) 2024 Travel from Last 3 Months Family History Medical History Relation Name Comments Brain Aneurysm Brother Aortic aneurysm Father Heart failure Mother Heart failure Sister Relation Name Status Comments Brother Father Mother Sister Social History Tobacco Use Types Packs/Day Years Used Date Smoking Tobacco: Never Smokeless Tobacco: Never Tobacco Cessation:Counseling Given: Not Answered Alcohol Use Standard Drinks/Week Comments Not Currently 0 (1 standard drink = 0.6 oz pur e alcohol) Comments Unknown Sex and Gender Information Value Date Recorded Sex Assigned at Not on file Legal Sex Female 7:23 PM EST Gender Identity Not on file Sexual Orientation Not on file Last Filed Vital Signs Vital Sign Reading Time Taken Comments Blood Pressure 130/90 2024 3:00 PM EDT Pulse 72 2024 2:11 PM EDT Temperature - - Respiratory Rate - - Oxygen Saturation - - Inhaled Oxygen Concentration - - Weight 119 kg (262 lb) 2024 2:11 PM EDT Height 162.6 cm (5' 4 ) 2024 2:11 PM EDT Body Mass Index 44.97 2024 2:11 PM EDT Plan of Treatment Upcoming Encounters Date Type Department Care Team (Late st Contact Info) Description 04/28/2025 1:00 PM EST Ancillary Procedure [address] [phone] 05/16/2025 2:00 PM EST Office Visit [address] [phone] Rc Kern MD [address] [facility] 130 [place] [address] Health Maintenance Due Date Last Done Comments Hepatitis C Screening 1963 CKD: Urine Protein Screening 1965 DTaP/Tdap/Td Vaccines (1 - Tdap) 1968 Creatinine Level 01/29/2021 01/30/2020, 01/20/2020 Diabetes Screening 01/29/2021 01/30/2020, 01/20/2020 Potassium Level 01/29/2021 01/30/2020, 01/20/2020 RSV High Risk: (Elderly (60+) or Population) (1 - 1-dose 75+ series) 2021 COVID-19 Vaccine (3 - 2023- season) 2023 06/09/2023, 03/31/2022 Medicare Annual Wellness Visit (AWV) 07/06/2024 07/06/2023, 06/29/2022, 10/14/2020, Additional history exists Influenza Vaccine (#1) 2024 , 03/01/2023, 03/23/2022, Additional history exists Echocardiogram 09/18/2025 09/18/2024 Bone Density Scan 07/26/2026 07/26/2024, , 10/21/2020, Additional history exists Lipid Panel 07/26/2029 07/26/2024 Colonoscopy Discontinued 10/31/2012 Colorectal Cancer Screening Discontinued Pneumococcal Vaccine Completed 02/07/2015, 12/12/19 14 Zoster Vaccines Completed 09/26/2019, 05/01, 01/17/2012 CT Colonography Discontinued FIT-DNA (Cologuard) Discontinued FIT [...] Sigmoidoscopy Discontinued Medical Devices Implanted Type Area Book Shelver Device Identifier Shelf Expiration Date Model / Serial / Lot Screw, Low Profile Hex, 6.5 X 15 Mm Case [id number] Implanted:Qty: 1 on 01/29/2020 by Micah Bird MD Implant Right: Hip HELENA oDesk 06/30/2023 [id number] / / 5MM Description:Converted from [facility]. Please see archived information for full log information. Screw, Low Profile Hex, 6.5 X 25 Mm Case [id number] Implanted:Qty: 1 on 01/29/2020 by Micah Bird MD Implant Right: Hip HELENA oDesk 06/01/2024 [id number] / / [id number] Description:Converted from [facility]. Please see archived information for full log information. Head, Femur V40 36mm +2.5mm Biolox Delta Case [id number] Implanted:Qty: 1 on 01/29/2020 by Micah Bird MD Joint Right: Hip HELENA oDesk 11/29/2024 [id number] / / [id number] Description:Converted from [facility]. Please see archived information for full log information. Stem, Femur 132d Sz 5 Accolade Ii Case [id number] Implanted:Qty: 1 on 01/29/2020 by Micah Bird MD Joint Right: Hip HELENA oDesk 09/29/2024 [id number] / / [id number] Description:Converted from [facility]. Please see archived information for full log information. Shell, Trident Ii, Clusterhole, Shelton 52e Case [id number] Implanted:Qty: 1 on 01/29/2020 by Micah Bird MD Joint Right: Hip HELENA oDesk 06/30/2023 [id number] / / [id number] Description:Converted from [facility]. Please see archived information for full log information. Liners, Poly 36 X 10 D Trid Crossfire E Case [id number] Implanted:Qty: 1 on 01/29/2020 by Micah Bird MD Joint Right: Hip Vibby 10/30/2023 [id number] / / [id number] Description:Converted from [facility]. Please see archived information for full log information. Procedures Procedure Name Priority Date/Time Associated Diagnosis Comments TRANSTHORACIC ECHO (TTE) COMPLETE Routine 09/18/2024 11:39 AM EDT Paroxysmal supraventricular tachycardia Abnormal EKG Palpitations BASIC METABOLIC PANEL Routine 01/30/2020 5:25 AM EDT from Last 3 Months or Most Recently Relevant to Health Maintenance Results * TRANSTHORACIC ECHO (TTE) COMPLETE (09/18/2024 [...] Narrative SYNGO - 09/18/2024 6:10 PM EDT [address], Suite [facility] [place], [place] [address] TRANSTHORACIC ECHOCARDIOGRAM REPORT Patient Name: USHA Deal Physician: [id number] David Castle MD, [facility] Study Date: 09/18/2024 Ordering Provider: [id number] RC KERN MRN/PID: [id number] Fellow: Nurse: Date of /Age: 7 1945 Professor Of Chemistry: Viry Quigley years RDCS, RVT Gender Assigned at F Additional Staff: : Height: 162.56 cm Admit Date: Weight: 122.02 kg Admission Status: Outpatient BSA / BMI: 2.22 m2 / 46.17 Department Location: [facility] Heart kg/m2 [place] Blood Pressure: 124 /86 mmHg Study Type: TRANSTHORACIC ECHO (TTE) COMPLETE Diagnosis/ICD: Supraventricular tachycardia-I47.1; Abnormal electrocardiogram [ECG] [EKG]-R94.31; Palpitations-R00.2 Indication: Edema, HTN, Hyperlipidemia, Carotid Stenosis, CARO, CKD-Stage III, Morbid Obesity CPT Codes: Echo Complete w Full [id number] Study Detail: The following Echo studies were [...] (0.6-0.9m/s) AORTA: Asc Ao Diam 2.66 cm [id number] David Castle MD, [facility] Electronically signed on 09/18/2024 at 6:10:05 PM Final Procedure Note David Castle MD - 09/18/[address], [address] [facility], [place] [address] TRANSTHORACIC ECHOCARDIOGRAM REPORT Patient Name: USHA Deal Physician: [id number] Castle MD,FAC Study Date: 09/18/2024 Ordering Provider: JO KERN MRN/PID: [id number] Fellow: Nurse: Date of /Age: 7 1945 / 78 Professor Of Chemistry: David ely RDCS, RVT Gender Assigned at F Additional Staff: : Height: 162.56 cm Admit Date: Weight: 122.02 kg Admission Status: Outpatient BSA / BMI: 2.22 m2 / 46.17 [facility] [place] Blood Pressure: 124 /86 mmHg Study Type: TRANSTHORACIC ECHO (TTE) COMPLETE Diagnosis/ICD: Supraventricular tachycardia-I47.1; Abnormalelectrocardiogram [ECG] [EKG]-R94.31; Palpitations-R00.2 Indication: Edema, HTN, Hyperlipidemia, Carotid Stenosis, CARO,CKD-Stage III, Morbid Obesity CPT Codes: Echo Complete w Full [id number] Study Detail: The following Echo studies were [...] (0.6-0.9m/s) AORTA: Asc Ao Diam 2.66 cm [id number] David Castle MD, FACC Electronically signed on 09/18/2024 at 6:10:05 PM Final us Rc Kern MD CV ECHO PROCEDURES Final Result SYNGO * (ABNORMAL) Basic Metabolic Panel (01/30/2020 5:25 AM EDT) Glucose 128(H) 74 - 99 mg/dL [facility] Sodium 137 136 - 145 mmol/L [facility] Potassium 4.2 3.5 - 5.3 mmol/L [facility] Chloride 101 98 - 107 mmol/L [facility] Bicarbonate 32 21 - 32 mmol/L [facility] Anion Gap 8(L) 10 - 20 mmol/L [facility] Urea Nitrogen 14 6 - 23 mg/dL [facility] Creatinine 1.00 0.50 - 1.05 mg/dL [facility] GLOMERULAR FILTRATION RATE-NON 54(A) >60 mL/min/1.7 3m2 [facility] GLOMERULAR FILTRATION RATE- 65 >60 mL/min/1.7 3m2 [facility] Comment: CALCULATIONS OF ESTIMATED GFR ARE PERFORMED USING THE MDRD STUDY EQUATION FOR THE IDMS-TRACEABLE CREATININE METHODS. CLIN CHEM 2007;53:766-72 Calcium 8.8 8.6 - 10.3 mg/dL [facility] 01/30/2020 5:25 AM EDT 01/30/2020 6:26 AM EDT us Micah Bird MD LAB BLOOD ORDERABLES Final Res ult [facility] from Last 3 Months or Most Recently Relevant to Health Maintenance Insurance GENERIC COMMERCIAL MEDICARE PART A AND B GENERIC COMMERCIAL MEDICARE PART A AND B Care Teams Licensed Practical Vocational Nurse Relationship Specialty Start Date End Date Roc Steele MD [address] [facility] 110 [place] [address] PCP - General 10/04/22
--- OUTSIDE RECORDS SUMMARY | 2024-12-26 11:34 | XMS_ITS | Encounter Summary ---
Author Organization [facility] Address [address] [place] [address] Care Team Providers Care Cafe Or Restaurant Manager Name Role Phone Roc Steele MD Primary Care Provider [phone] Roc Steele MD Unavailable [phone] Luis Felipe Dugan DO Unavailable [phone] Raya Holt RN Unavailable [phone] Gladis Laird LPN Unavailable Encounter Details Date Type Department Care Team (Late st Contact Info) Description 05/07/2024 Abstract [facility] [place] [facility] [address] [facility] 110 [place] [address] Roc Steele MD [address] [facility] 110 [place] [address] Social History Tobacco Use Types Packs/Day Years [...] How often do you attend chur or protestant services? Never 11/25/2022 Do you [...] Patient Health Questionnaire-2 Score 0 07/06/2023 [facility] [place] of Occupat ional Health - Occupational Stress [...] EDT Procedure Visit [facility] 112 [facility] [address] [place] [phone] Alex Tam DPM 9550 [facility] 5 [place] [address] documented as of this encounter Visit Diagnoses Not on filedocumented in this encounter Additional Health Concerns Assessment Noted Time PHQ-9 Depression Total Score: 0 07/06/19 24 3:00 PM EST documented as of this encounter Care Teams Cafe Or Restaurant Manager Relationship Specialty Start Date End Date Roc Steele MD [address] [place] [address] PCP - General Internal Medicine 09/28/22 Roc Steele MD [address] [facility] [address] [place] [address] PCP - ACO Reach 08/30/23 Luis Felipe Dugan DO [address] [place] [address] Referring Physician Neurology 03/07/24 Raya Holt, RN [address] [place] [address] Clinical Advocate Family Medicine 06/07/24 07/19/24 Gladis Laird LPN [address] [facility] 110 [place] [address] 07/19/24 documented as of this encounter
--- OUTSIDE RECORDS SUMMARY | 2024-12-26 11:34 | XMS_ITS | Encounter Summary ---
Author Organization [facility] Address [address] [place] [address] Care Team Providers Care Camp Counselor Name Role Phone Roc Steele MD Unavailable [phone] Roc Steele MD Primary Care Provider [phone] Roc Steele MD Unavailable [phone] Luis Felipe Dugan DO Unavailable [phone] Raya Holt RN Unavailable [phone] Gladis Laird LPN Unavailable Encounter Details Date Type Department Care Team (Late st Contact Info) Description 12/25/2022 Abstract [facility] [place] [facility] 112 [facility] [address] [place] [address] Josue Mayer, PT 112 [facility] 170 [place] [address] Social History Tobacco Use Types Packs/Day Years [...] any clubs o r organizations such as christian groups, unions, fraternal or athletic groups, or [...] and heating? Not hard at all 11/25/2022 [facility] of Occupat ional [...] Upcoming Encounters Date Type Department Care Team ([facility] Contact Info) Description 01/02/2025 2:40 PM EDT Procedure Visit [facility] [address] [facility] [address] [place] [address] Alex Tam DPM 3006 [facility] 5 [place] [address] documented as of this encounter Visit Diagnoses Not on filedocumented in this encounter Care Teams Camp Counselor Relationship Specialty Start Date End Date Roc Steele MD [address] [facility] [address] [place], [place] [id number] PCP - ACO Reach 09/22/22 06/29/23 Roc Steele MD [address] [facility] [address] [place], [place] [id number] PCP - General Internal Medicine 09/28/22 Roc Steele MD [address] [place] [address] [place], [place] [address] PCP - ACO Reach 08/30/23 Luis Felipe Dugan DO [address] [place] [address] Referring Physician Neurology 03/07/24 aRya Holt, RN [address] [place], [place] [id number] Clinical Advocate Family Medicine 06/07/24 07/19/24 Gladis Laird LPN [address] [place] [address] [place] [address] 07/19/24 documented as of this encounter
--- OUTSIDE RECORDS SUMMARY | 2024-12-26 11:34 | XMS_ITS | Encounter Summary ---
Author Organization [facility] Address [address] [place] [address] Care Team Providers Care Rug Sizer Name Role Phone Roc Steele MD Primary Care Provider [phone] Roc Steele MD Unavailable [phone] Bull Duganjulianojean-claude JORDAN Unavailable [phone] Gladis Laird LPN Unavailable Encounter Details Date Type Department Care Team (Late st Contact Info) Description 09/18/2024 Abstract [facility] [place] [facility] [address] [facility] 110 [place] [address] Roc [place] MD 112 [facility] 110 [place] [address] Social History Tobacco Use Types Packs/Day Years [...] often do you attend chur ch or methodist services? Never 11/25/2022 Do you [...] Recorded Patient Health Questionnaire-2 Score 0 08/19/2024 [facility] of Occupat ional Health [...] Upcoming Encounters Date Type Department Care Team ([facility] st Contact Info) Description 01/02/2025 2:40 PM EDT Procedure Visit [facility] [address] [place] [address] [place] [phone] Alex Tam DPRen 3003 [facility] 5 [place] [address] documented as of this encounter Visit Diagnoses Not on filedocumented in this encounter Additional Health Concerns Assessment Noted Time PHQ-9 Depression Total Score: 0 07/06/19 24 3:00 PM EST documented as of this encounter Care Teams Rug Sizer Relationship Specialty Start Date End Date Roc [place] MD 112 [facility] [place] [address] [place], [place] [id number] PCP - General Internal Medicine 09/28/22 Roc Steele MD [address] [place] [address] [place] [address] PCP - ACO Reach 08/30/23 Luis Felipe Dugan DO [address] [place] [address] Referring Physician Neurology 03/07/24 Gladis Laird LPN [address] [place] [address] [place] [address] 07/19/24 documented as of this encounter
--- OUTSIDE RECORDS SUMMARY | 2024-12-26 11:34 | XMS_ITS | Encounter Summary ---
Author Organization [facility] Address [address] [place] [address] Care Team Providers Care Travel Professional Name Role Phone Roc Steele MD Primary Care Provider Roc [place] MD Unavailable [phone] Bull Duganjulianojean-claude JORDAN Unavailable [phone] Gladis Laird LPN Unavailable Encounter Details Date Type Department Care Team (Late st Contact Info) Description 08/07/2024 Abstract [facility] [place] [facility] [address] [facility] 110 [place] [address] Roc [place] MD 112 [facility] 110 [place] [address] Social History Tobacco Use Types Packs/Day Years [...] often do you attend chur ch or taoist services? Never 11/25/2022 Do you belong to [...] Recorded Patient Health Questionnaire-2 Score 0 08/01/2024 [facility] of Occupat ional Health - [...] Upcoming Encounters Date Type Department Care Team ([facility] st Contact Info) Description 01/02/2025 2:40 PM EDT Procedure Visit [facility] [address] [place] [address] [place] [phone] Alex Tam DPRen 3000 [facility] 5 [place] [address] documented as of this encounter Visit Diagnoses Not on filedocumented in this encounter Additional Health Concerns Assessment Noted Time PHQ-9 Depression Total Score: 0 07/06/19 24 3:00 PM EST documented as of this encounter Care Teams Travel Professional Relationship Specialty Start Date End Date Roc [place] MD 112 [facility] [place] [address] [place], [place] [id number] PCP - General Internal Medicine 09/28/22 Roc Steele MD [address] [place] [address] [place] [address] PCP - ACO Reach 08/30/23 Luis Felipe Dugan DO [address] [place] [address] Referring Physician Neurology 03/07/24 Gladis Laird LPN [address] [place] [address] [place] [address] 07/19/24 documented as of this encounter
--- OUTSIDE RECORDS SUMMARY | 2024-12-26 11:34 | XMS_ITS | Encounter Summary ---
Author Organization [facility] Address [address] [place] [address] Care Team Providers Care Rack Maker Name Role Phone Roc Steele MD Primary Care Provider [phone] Roc Steele MD Unavailable [phone] Luis Felipe Dugan DO Unavailable [phone] Raya Holt RN Unavailable [phone] Gladis Laird LPN Unavailable Encounter Details Date Type Department Care Team (Late st Contact Info) Description 05/30/2024 Abstract [facility] [place] [facility] [address] [facility] 110 [place] [address] Roc [place] MD [address] [facility] [address] [place] [address] Social History Tobacco Use Types Packs/Day Years [...] Recorded Patient Health Questionnaire-2 Score 0 07/06/2023 [facility] of Occupat ional Health - Occupational Stress [...] Procedure Visit [facility] 112 [facility] [place] [address] [place] [address] Alex Tam DPM 0724 [facility] 5 [place] [address] documented as of this encounter Visit Diagnoses Not on filedocumented in this encounter Additional Health Concerns Assessment Noted Time PHQ-9 Depression Total Score: 0 07/06/19 24 3:00 PM EST documented as of this encounter Care Teams Rack Maker Relationship Specialty Start Date End Date Roc Steele MD [address] [place] [address] [place] [address] PCP - General Internal Medicine 09/28/22 Roc Steele MD [address] [facility] [address] [place] [address] PCP - ACO Reach 08/30/23 Luis Felipe Dugan DO [address] [place] [address] Referring Physician Neurology 03/07/24 Raya Holt, RN [address] [place] [address] Clinical Advocate Family Medicine 06/07/24 07/19/24 Gladis Laird LPN [address] [facility] 110 [place] [address] 07/19/24 documented as of this encounter
--- OUTSIDE RECORDS SUMMARY | 2024-12-26 11:34 | XMS_ITS | Encounter Summary ---
Author Organization [facility] Address [address] [place] [address] Phone Care Team Providers Care Senior Project Manager Engineering Name Role Phone Roc Steele MD Primary Care Provider [phone] Encounter Details Date Type Department Care Team (Late st Contact Info) Description 07/03/2024 Scanned Document [facility] [address] [place] [id number] Scanning, Generic Provider Social History Tobacco Use [...] Description 04/28/2025 1:00 PM EST Ancillary Procedure [address] [place] [address] 05/16/2025 2:00 PM EST Office Visit [address] [place] [address] Amber Hawley MD [address] [facility] 130 [place] [address] documented as of this encounter Visit Diagnoses Not on filedocumented in this encounter Care Teams Senior Project Manager Engineering Relationship Specialty Start Date End Date Roc Steele MD 112 [facility] 110 [place] [address] PCP - General 10/04/22 documented as of this encounter
--- NOTE | 2024-12-26 11:42 | CT_ITS ---
The [address] [address] Patient Name: LUMA RIBEIRO MRN: [id number] date: 1945 Sex: F Assigned Patient Location: ER Current Patient Location: ER Accession/Order Number: [id number] Exam Date: 12/26/2024 12:06 Report Date: 12/26/2024 12:45 At the request of: GILBERT BARRAGAN MD Procedure: CT cervical spine wo con CLINICAL DATA: Patient fell backwards and hit head. CT BRAIN WITHOUT CONTRAST: COMPARISON: 06/14/2024 TECHNIQUE: Contiguous axial unenhanced images were obtained through the brain. This CT exam was performed using one or more following dose reduction techniques: Automated exposure control, adjustment of the mA and/or kV according to patient size, or use of iterative reconstruction technique. FINDINGS: There is generalized atrophy. The ventricles are within normal limits for size and position. Microvascular changes are noted. There are no additional areas of abnormal attenuation. There is no hemorrhage, mass effect or extra-axial collections. The calvarium is intact. The imaged paranasal sinuses and mastoid air cells are clear. There is carotid siphon and vertebral artery plaque. CT/CT cervical spine wo con IMPRESSION: ATROPHY AND SMALL VESSEL ISCHEMIC CHANGES. NO ACUTE INTRACRANIAL TRAUMA. CT CERVICAL SPINE WITHOUT CONTRAST WITH 3D RECONSTRUCTIONS: COMPARISON: 06/14/2024 TECHNIQUE: Spiral axial unenhanced images were obtained through the cervical spine. Sagittal and coronal reconstructions were also reviewed. This CT exam was performed using one or more following dose reduction techniques: Automated exposure control, adjustment of the mA and/or kV according to patient size, or use of iterative reconstruction technique. FINDINGS: There is subtle dextroscoliotic curvature. There is still minor anterolisthesis of C3 on C4 and C4 on C5. No acute fractures are identified. There is slight disc space narrowing at C5-6 and C6-7. There are tiny endplate spurs. Bilateral facet hypertrophy is seen, greater on the left. The atlantoaxial relationship is maintained. No prevertebral soft tissue swelling is seen. Carotid artery plaque is noted. The upper imaged lungs show no contributory findings. IMPRESSION: DEGENERATIVE CHANGES. NO ACUTE BONY INJURY. Impression dictated by: Sushila Zeng M.D. 12/26/2024 12:45 PM Dictation Location: [place] [address] Electronically authenticated by: [id number] Y Date: 12/26/2024 12:45
--- NOTE | 2024-12-26 11:42 | CT_ITS ---
The [address] [address] Patient Name: LUMA RIBEIRO MRN: [id number] date: 1945 Sex: F Assigned Patient Location: ER Current Patient Location: ER Accession/Order Number: [id number] Exam Date: 12/26/2024 12:06 Report Date: 12/26/2024 12:58 At the request of: GILBERT BARRAGAN MD Procedure: CT lumbar spine wo con CLINICAL DATA: Patient fell backwards. CT LUMBAR SPINE WITHOUT CONTRAST WITH RECONSTRUCTIONS COMPARISON: MRI lumbar spine 10/01/2024 Spiral axial unenhanced images were obtained through the lumbar spine. Sagittal and coronal reconstructions were reviewed. This CT exam was performed using one or more following dose reduction techniques: Automated exposure control, adjustment of the mA and/or kV according to patient size, or use of iterative reconstruction technique. There is osteopenia. There is slight dextroscoliotic curvature. Alignment is maintained on the sagittal reconstructions. No acute compression fractures are seen. The L4-5 disc space is maintained. There is narrowing of the remaining disc spaces along with vacuum phenomenon. Endplate spurring and facet hypertrophy are identified. There is bilateral L5 spondylolysis. No paraspinal soft tissue abnormalities are identified. There is atherosclerotic plaque involving the aorta and its branches. There are no renal calculi or hydronephrosis in the koaxr-id-[id number]. CT/CT pelvis wo con IMPRESSION: OSTEOPENIA, SCOLIOSIS AND DEGENERATIVE CHANGES SIMILAR TO THE RECENT MRI STUDY. L5 SPONDYLOLYSIS. NO ACUTE BONY INJURY. CT PELVIS BONY WITH RECONSTRUCTIONS: CLINICAL HISTORY: 09/02/2022 TECHNIQUE: Spiral images were obtained through the pelvis without contrast. Sagittal and coronal reconstructions were reviewed. This CT exam was performed using one or more following dose reduction techniques: Automated exposure control, adjustment of the mA and/or kV according to patient size, or use of iterative reconstruction technique. The bony structures are osteopenic. There is a right hip prosthesis with associated streak artifact. The hardware, as visualized appears intact and in appropriate position. The bony pelvis, sacrum and proximal imaged femora are intact. There is no dislocation at the hips. The SI joints are maintained. The left hip shows slight axial narrowing. There is also marginal spurring at the periphery of the femoral head and acetabulum. The musculotendinous structures in the gxwuh-tn-kuzh show no obvious abnormalities. No hematoma is noted. There is distal colonic diverticular disease. A hiatal hernia is visualized containing fat. IMPRESSION: NO ACUTE BONY INJURY. Impression dictated by: Sushila Zeng M.D. 12/26/2024 12:58 PM Dictation Location[facility] Electronically authenticated by: [id number] Y Date: 12/26/2024 12:58
--- NOTE | 2024-12-26 11:42 | CT_ITS ---
The [address] [address] Patient Name: LUMA RIBEIRO MRN: [id number] date: 1945 Sex: F Assigned Patient Location: ER Current Patient Location: ER Accession/Order Number: [id number] Exam Date: 12/26/2024 12:06 Report Date: 12/26/2024 12:45 At the request of: GILBERT BARRAGAN MD Procedure: CT cervical spine wo con CLINICAL DATA: Patient fell backwards and hit head. CT BRAIN WITHOUT CONTRAST: COMPARISON: 06/14/2024 TECHNIQUE: Contiguous axial unenhanced images were obtained through the brain. This CT exam was performed using one or more following dose reduction techniques: Automated exposure control, adjustment of the mA and/or kV according to patient size, or use of iterative reconstruction technique. FINDINGS: There is generalized atrophy. The ventricles are within normal limits for size and position. Microvascular changes are noted. There are no additional areas of abnormal attenuation. There is no hemorrhage, mass effect or extra-axial collections. The calvarium is intact. The imaged paranasal sinuses and mastoid air cells are clear. There is carotid siphon and vertebral artery plaque. CT/CT head/brain wo con IMPRESSION: ATROPHY AND SMALL VESSEL ISCHEMIC CHANGES. NO ACUTE INTRACRANIAL TRAUMA. CT CERVICAL SPINE WITHOUT CONTRAST WITH 3D RECONSTRUCTIONS: COMPARISON: 06/14/2024 TECHNIQUE: Spiral axial unenhanced images were obtained through the cervical spine. Sagittal and coronal reconstructions were also reviewed. This CT exam was performed using one or more following dose reduction techniques: Automated exposure control, adjustment of the mA and/or kV according to patient size, or use of iterative reconstruction technique. FINDINGS: There is subtle dextroscoliotic curvature. There is still minor anterolisthesis of C3 on C4 and C4 on C5. No acute fractures are identified. There is slight disc space narrowing at C5-6 and C6-7. There are tiny endplate spurs. Bilateral facet hypertrophy is seen, greater on the left. The atlantoaxial relationship is maintained. No prevertebral soft tissue swelling is seen. Carotid artery plaque is noted. The upper imaged lungs show no contributory findings. IMPRESSION: DEGENERATIVE CHANGES. NO ACUTE BONY INJURY. Impression dictated by: Sushila Zeng M.D. 12/26/2024 12:45 PM Dictation Location: [place] [address] Electronically authenticated by: [id number] Y Date: 12/26/2024 12:45
--- OUTSIDE RECORDS SUMMARY | 2024-12-26 11:42 | XMS_ITS | CCD ---
Author Organization [facility] CliniSyct Care Team Providers Care Room Service Attendant Name Role Phone PelonTrinaew Unavailable Unavailable Unavailable Unavailable Unavailable TRA ., SASHA Consulting Unavailable TRA ., SASHA Admitting Unavailable USAMA, DR MENDOZA Primary Care Unavailable TRA ., SASHA Attending Unavailable HATTIE OH Consulting Unavailable USAMA, DR MENDOZA Attending Unavailable USAMA, DR MENDOZA Consulting Unavailable USAMA, DR MENDOZA Primary Care Unavailable USAMA, DR MENDOZA Admitting Unavailable LISA FREDERICK V Consulting Unavailable HAY ., DR WHIPPLE Attending Unavailable HAY ., DR WHIPPLE Admitting Unavailable USAMA, DR MENDOZA Primary Care Unavailable ISAEL HANSEN Consulting Unavailable ROXANN KERR Consulting Unavailab harjinder Steele II, Dr. Roc Lerma Primary Care Catina sarah Al, Dr. Taniya Briscoe Attending U Roc Wellington MD Unavailable [phone] Roc Steele MD Primary Care Provider Roc Steele MD Unavailable [phone] Ritchie DO, Christopher Unavailable Mala Sapp Attending UnavailMala Kenney Admitting UnavailRoc Grant Primary Care Unavailable Yanet MORALES, Raya Unavailable Roc Steele MD Primary Care Provider Laird CUFF SETTER, Gladis Unavailable Unavailable Ritchie DO, Christopher Unavailable Ritchie DO, Christopher Unavailable Laird CUFF SETTER, Gladis Unavailable KAMILA PRIDE Attending Unavailable ALEX ALFREDO Attending Unavailable KAMILA PRIDE Attending Unavailable KAMILA PRIDE Attending Unavailable KAMILA PRIDE Referring Unavailable BIGG, KAMILA M Attending Unavailable BIGG, KAMILA M Referring Unavailable BIGG, KAMILA M Attending Unavailable ALEX ALFREDO A Attending Unavailable MARIKA STEELEEL B Attending Unavailable BROWN, ALEX A Attending Unavailable BIGG, KAMILA M Attending Unavailable BIGG, KAMILA M Attending Unavailable BROWN, ALEX A Attending Unavailable BROWN, ALEX A Attending Unavailable BIGG, KAMILA M Attending Unavailable WAQAS DUGAN Attending Unavailable BIGG, KAMILA M Referring Unavailable BIGG, KAMILA M Attending Unavailable BIGG, KAMILA M Referring Unavailable BIGG, KAMILA M Attending Unavailable BIGG, KAMILA M Attending Unavailable Gieditis , Andri Vytyumiko Attending Unavailable Giteodoroitis , Andrius Vytautjeffery Attending Unavailable Giteodoroitis , Andrius Vytautas Attending Unavailable HAWLEY, AMBER Attending Unavailable HAWLEY, AMBER Referring Unavailable STEELE, ROC B Primary Care Unavailable HAWLEY, AMBER Attending Unavailable STEELE, ROC B Primary Care Unavailable HAWLEY, AMBER Referring Unavailable STEELE, ROC B Primary Care Unavailable HAWLEY, AMBER Referring Unavailable STEELE, ROC B Primary Care Unavailable HAWLEY, AMBER Referring Unavailable STEELE, ROC B Primary Care Unavailable HAWLEY, AMBER Referring Unavailable STEELE, ROC B Primary Care Unavailable Allergies Allergy Classification Reported Allergen(s) Allergy Type Date of Onset Reaction(s) Facility Macrolides (antibiotic) (6 sources) Clarithromycin; Translations: [clarithromycin] Drug Allergy Unknown [facility] Work Phone: Quinolones (antibiotic) (18 sources) moxifloxacin; Translations: [moxifloxacin] Drug Allergy Anaphylaxis, Unknown [facility] Work Phone: (20 sources) Ciprofloxacin; Translations: [ciprofloxacin] Drug Allergy 3 Unknown [facility] (20 sources) Clarithromycin; Translations: [clarithromycin] Drug Allergy 3 Unknown [facility] Repository (4 sources) moxifloxacin; Translations: [Avelox] Drug Allergy 3 Anaphylaxis [facility] Repository (20 sources) moxifloxacin; Translations: [moxifloxacin] Drug Allergy 3 Anaphylaxis, Angioedema [facility] Work Phone: (1 source) Ciprofloxacin Drug Allergy 3 [facility] Repository (1 source) Sulfonamides (Antibiotic) Drug allergy (disorder) 3 [facility] Repository (20 sources) Sulfanilamide Allergy to substance 3 [facility] (8 sources) Sulfonamides (Antibiotic); Translations: [SULFA (SULFONAMIDE ANTIBIOTICS)] Propensity to adverse reactions [address] [facility] Work Phone: Medications Current Medications Medication Drug Class(es) Dates Sig (Normalized) Sig (Original) acetaminophen 325 mg / HYDROcodone bitartrate 5 mg oral tablet (20 sources) Opioid Agonist Start: 02-29-2024 End: 11-17-2024 take 1 tablet by mouth every four hours for pain HYDROcodone-acetam inophen ([place]) 5-325 MG tablet Indications: Lumbosacral spondylosis without myelopathy Take 1 tablet by mouth every 4 (four) hours if needed for moderate pain or severe pain 180 tablet 10/18/2024 11/17/2024 Active [id number] 200 actuat albuterol 0.09 mg/actuat metered dose inhaler (12 sources) beta2-Adrenergic Agonist Start: 08-01-2024 End: 08-01-2025 [...] chewable tablet Take by oral route. Active calcium citrate 1500 mg / cholecalciferol 250 unt oral tablet (1 source) Vitamin D take 1 tablet by mouth once daily calcium citrate-vitamin D3 (Citracal + D Maximum) 315 mg-6.25 mcg (250 unit) tablet Take 1 tablet (315 mg) by mouth once daily. Active cefdinir 300 mg oral capsule (5 [...] 1 ml denosumab 60 mg/ml prefilled syringe (12 sources) RANK Ligand Inhibitor Start: 08-01-2024 Prolia 60 mg/mL syringe Inject 1 mL (60 mg total) under the skin every 6 months. 08/01/2024 Active Start: 08-01-2024 inject 1 mL by subcu taneous injection once denosumab (Prolia) 60 MG/ML solution prefilled syringe Indications: Age-related osteoporosis without current pathological fracture Inject 1 mL (60 mg) under the skin 1 (one) time for 1 dose 1 mL 08/01/2024 Active docusate sodium 100 mg oral capsule (5 sources) docusate sodium (Colace) 100 MG capsule 1 (one) time each day at the same time. 0 Active doxycycline hyclate 100 mg oral tablet (6 sources) Tetracycline-class Drug Start: 05-07-19 End: 05-17-19 doxycycline (Vibra-Tabs) 100 MG tablet Indications: Bronchitis Take 1 tablet (100 mg) by mouth in the morning and 1 tablet (100 mg) before bedtime. Do all this for 10 days. Take with a full glass of water and do not lie down for at least 30 minutes after.. 20 tablet 05/07/2024 05/17/2024 Active fexofenadine hydrochloride 180 mg oral tablet (13 sources) Histamine-1 Receptor Antagonist Start: 08-02-19 End: 08-02-19 take 1 tablet by mouth every twenty-four hours as needed fexofenadine (Radha) 180 mg tablet Take 1 tablet (180 mg) by mouth once daily as needed. 08/01/2024 08/01/2025 Active furosemide 20 mg oral tablet (20 sources) Loop Diuretic Start: 04-04-20 End: 07-19-19 take 1 tablet by mouth once daily furosemide (Lasix) 20 MG tablet Indications: Cardiomegaly , Chronic congestive heart failure, unspecified heart failure type (HCC) Take 1 tablet (20 mg) by mouth Daily 90 tablet 3 07/18/2024 07/18/2025 Active gabapentin 300 mg oral capsule (20 sources) Anti-epileptic Agent Start: 12-02-19 take 1 capsule by mouth in the morning gabapentin (Neurontin) 300 MG capsule Indications: Acute low back pain without sciatica, unspecified back pain laterality Take 1 capsule (300 mg) by mouth in the morning and 1 capsule (300 mg) before bedtime. 200 capsule 3 10/02/2024 Active 24 hr isosorbide mononitrate 30 mg extended release oral tablet (1 source) Nitrate Vasodilator Start: 11-16-19 End: 11-16-19 take 1 tablet by mouth once daily at bedtime isosorbide mononitrate ER (Imdur) 30 mg 24 hr tablet Indications: Chest discomfort Take 1 tablet (30 mg) by mouth once daily at bedtime. Do not crush or chew. 90 tablet 3 2024 2025 Active lactulose 667 mg/ml oral solution (5 sources) Osmotic Laxative Start: 09-06-19 take 30 mL by mouth twice daily Constulose 10 GM/15ML solution TAKE 30 ML BY MOUTH TWICE DAILY FOR 3 DAYS 0 09/05/2022 Active magnesium oxide 400 mg oral tablet (7 sources) Start: 11-16-19 End: 11-16-19 take 1 tablet by mouth twice daily magnesium oxide (Mag-Ox) 400 mg (241.3 mg elemental) tablet Indications: Palpitations Take 1 tablet by mouth 2 times a day. 180 tablet 3 2024 2025 Active Start: 07-15-2024 End: 07-15-2025 take 1 tablet by mouth once daily magnesium oxide (Mag-Ox) 400 mg (241.3 mg magnesium) tablet Indications: Paroxysmal supraventricular tachycardia Take 1 tablet (400 mg) by mouth once daily. 90 tablet 3 07/15/2024 2024 Discontinued meloxicam 15 mg oral tablet (20 sources) Nonsteroidal Anti-inflammatory Drug Start: 10-10-2024 take 1 tablet by mouth once daily meloxicam (Mobic) 15 MG tablet Indications: Primary osteoarthritis involving multiple joints TAKE 1 TABLET BY MOUTH ONCE DAILY 90 tablet 3 10/10/2024 Active Start: 11-09-2022 take 1 tablet by [...] oral tablet (20 sources) beta-Adrenergic Shaina Start: 2024 End: 2025 take 1 tablet by mouth once daily at bedtime metoprolol succinate XL (Toprol XL) 100 mg 24 hr tablet Indications: Palpitations Take 1 tablet (100 mg) by mouth once daily at bedtime. Do not crush or chew. 90 tablet 3 2024 2025 Active Start: 2024 End: 2025 take 1 tablet by mouth once daily in the morning metoprolol succinate XL (Toprol-XL) 50 mg 24 hr tablet Indications: Palpitations Take 1 tablet (50 mg) by mouth once daily in the morning. 90 tablet 3 2024 2025 Active Start: 10-10-2024 take 1 tablet by lori th every twenty-four hours in the morning metoprolol succinate XL (Toprol-XL) 50 MG 24 hr tablet Indications: Benign essential hypertension TAKE 1 TABLET BY MOUTH IN THE MORNING AND 1 TABLET BY MOUTH BEFORE BEDTIME 180 tablet 3 10/10/2024 Active Start: 05-22-2024 End: 2024 take 1 tablet by mouth twice daily metoprolol succinate XL (Toprol-XL) 50 mg 24 hr tablet Take 1 tablet (50 mg) by mouth twice a day. 05/22/2024 2024 Discontinued (Reorder) Start: 05-22-2024 take 1 tablet by lori [...] 05/22/2024 Discontinued (Reorder) take 1 tablet by lori th once daily metoprolol succinate XL (Toprol-XL) 50 MG 24 hr tablet TAKE 1 TABLET BY MOUTH ONCE DAILY for 90 0 Active Multiple Vitamin (Multi Vashti min) tablet (20 sources) Multiple Vitamin (Multi Vitamin) tablet 1 (one) time each day at the same time. Active Multiple Vitamin (Multi Vitamin) tablet 1 (one) time each day at the same time. 0 Active sugrpxzrbwht-Rw-dpmn-mineral s tablet (1 source) take 1 tablet by mouth once daily bywtfdwberop-Lj-pzjo-minerals tablet Take 1 tablet by mouth once daily. Active nortriptyline 10 mg oral capsule (20 sources) Tricyclic Antidepressant S t a r t : 0 6 - 2 7 - 2 0 2 4 take 3 capsules by mouth once daily at bedtime nortriptyline (Pamelor) 10 MG capsule Indications: Primary insomnia , Anxiety TAKE 3 CAPSULES BY MOUTH AT BEDTIME ONCE DAILY 270 capsule 3 10/10/2024 Active Start: 11-09-2022 take 3 capsules by m outh once daily at bedtime nortriptyline (Pamelor) 10 MG capsule Indications: Primary insomnia , Anxiety TAKE 3 CAPSULES BY MOUTH AT BEDTIME ONCE DAILY 270 capsule 3 11/09/2022 Active pantoprazole 40 mg delayed release oral tablet (20 sources) Proton Pump Inhibitor Start: 08-08-2023 take 1 tablet by mouth once daily pantoprazole (ProtoNix) 40 mg EC tablet Take 1 tablet (40 mg) by mouth once daily. 08/08/2023 Active take 1 tablet by mouth [...] tablet (20 sources) HMG-CoA Reductase Inhibitor Start: 2024 End: 2025 take 1 tablet by mouth once daily at bedtime simvastatin (Zocor) 10 mg tablet Indications: Mixed hyperlipidemia Take 1 tablet (10 mg) by mouth once daily at bedtime. 90 tablet 3 2024 2025 Active Start: 09-13-2023 End: 2024 take 1 tablet by mouth once daily simvastatin (Zocor) 10 MG tablet Indications: Hyperlipidemia, unspecified hyperlipidemia type TAKE 1 TABLET BY MOUTH ONCE DAILY 90 tablet 3 10/10/2024 Active take 1 tablet by lori once daily simvastatin (Zocor) 10 MG tablet TAKE 1 TABLET BY MOUTH ONCE DAILY for 90 0 Active tiZANidine 4 mg oral tablet (20 sources) Central alpha-2 Adrenergic Agonist Start: 10-07-2024 take 1 tablet by mouth every eight hours as needed tiZANidine (Zanaflex) 4 MG tablet Indications: Primary insomnia TAKE 1 TABLET BY MOUTH EVERY 8 HOURS NEEDED 270 tablet 10/07/2024 Active Start: 04-16-2024 take 1 tablet by lori th three times daily tiZANidine (Zanaflex) 4 mg [...] sources) gamma-Aminobutyric Acid-ergic Agonist Start: 10-17-2023 End: 09-11-2024 take 1 tablet [...] QUADRANT PAIN] Onset: 3 Episodic Administrative/social admission (12 sources) First encounter by subject; Translations: [Persons [...] tachycardia] Onset: 3 09-30-2022 Chronic Cardiac dysrhythmias (20 sources) Palpitations; Translations: [Palpitations] Onset: 5 06-11-2024 Episodic Chronic kidney disease (11 sources) Chronic kidney disease stage 3B ; Translations: [Stage 3b chronic kidney disease (HCC) (CMS/HCC)] Onset: 5 05-22-2024 Chronic Chronic kidney disease (2 sources) Chronic kidney disease; Translations: [Chronic kidney disease, stage 3a (Multi)] Onset: 5 Chronic obstructive pulmonary disease and bronchiectasis (1 source) Bronchiectasis, uncomplicated; Translations: [BRONCHIECTASIS UNCOMPLICATED] Onset: 3 Chronic Chronic obstructive pulmonary disease and bronchiectasis (2 sources) Bronchitis; Translations: [Bronchitis, not specified as acute or chronic] 05-07-2024 Episodic Conditions associated with dizziness or vertigo (15 sources) Lightheadedness; Translations: [Dizziness and giddiness] Onset: [...] insomnia; Translations: [Primary insomnia] 04-15-2024 Chronic Mycoses (4 sources) Pain in toe; Translations: [Tinea unguium] 02-19-2024 Episodic Nausea and vomiting (1 source) Nausea; Translations: [NAUSEA] Onset: 3 Episodic Nonspecific chest pain (16 sources) Chest discomfort; Translations: [Other chest pain] [...] 08-01-2024 Chronic Other aftercare (1 source) Other usp (current) drug therapy; Translations: [OTH BERRY GROWER CURRENT DRUG THERAPY] Onset: 3 Episodic Other [...] Chronic Other nutritional; endocrine; and metabolic disorders (10 sources) Body mass index 40+ - severely obese; Translations: [Body mass index (BMI) 45.0-49.9, adult] Onset: 5 05-07-2024 Chronic Other nutritional; endocrine; and metabolic disorders (2 sources) Hypomagnesemia; Translations: [Hypomagnesemia] 05-22-2024 Chronic Other nutritional; endocrine; and metabolic disorders (2 sources) Body mass index (BMI) 40.0-44.9, adult; Translations: [Body mass index (BMI) 40.0-44.9, adult (Multi)] Onset: 5 Chronic Other screening for suspected conditions (not [...] Onset: 3 09-30-2022 Chronic Residual codes; unclassified (8 sources) Walking aid use - finding; Translations: [Dependence on other enabling machines and devices] Onset: 5 07-15-2024 Chronic Residual codes; unclassified (2 sources) Obstructive sleep apnea (adult) (pediatric); Translations: [Obstructive sleep apnea (adult) (pediatric)] Onset: 5 Chronic Residual codes; unclassified (2 sources) Dependence on other enabling machines and devices; Translations: [Dependence on other enabling machines and devices] Onset: 5 Chronic Residual codes; unclassified (9 sources) H/O: Disorder; Translations: [Personal history of other specified diseases] Episodic Residual codes; unclassified (2 sources) Localized edema; Translations: [Localized edema] 07-11-2024 Episodic Residual codes; unclassified (8 sources) Never smoked tobacco; Translations: [Other specified [...] [Repeated falls] Onset: 09-30-2022 09-30-2022 Episodic Other injuries and conditions due to external causes (7 sources) At high risk for fall; Translations: [History of falling] Onset: 07-15-2024 07-15-2024 Episodic Other injuries and conditions due to external causes (2 sources) History of falling; Translations: [History of falling] Onset: 07-15-2024 Episodic Other lower respiratory disease (20 sources) [...] back pain] Onset: 09-30-2022 09-30-2022 Episodic Unclassified (6 sources) Onset: 07-15-2024 Resolved: 2024 07-15-2024 Unclassified (2 sources) Supraventricular tachycardia, unspecified; Translations: [Supraventricular tachycardia, unspecified] Onset: 09-18-2024 Unclassified (1 source) Supraventricular tachycardia, unspecified (CMS-HCC); Translations: [Supraventricular tachycardia, unspecified (CMS-HCC)] Onset: 07-15-2024 NEGATED: Highlighted row has not occurred!Residual codes; unclassified (2 sources) Disease Episodic Results Test Name Value Interpretation Reference Range Facility [place] [address] Magnetic Resonance Report Signed Patient: LUMA RIBEIRO MR#: [id number] : 1945 Acct:[id number] Age/Sex: 78 / F ADM Date: 10/01/24 Loc: MRI Attending Dr: Daron Sanchez M.D. Ordering Physician: Daron Sanchez M.D. Date of Service: 10/01/24 Procedure(s): MR lumbar spine wo con Accession Number(s): [id number] cc: ROC STEELE ; Daron Sanchez M.D. The [place] [address] Patient Name: LUMA RIBEIRO MRN: [id number] date: 1945 Sex: F Assigned Patient Location: MRI Current Patient Location: MRI Accession/Order Number: [id number] Exam Date: 10/01/2024 14:28 Report Date: 10/01/2024 14:34 At the request of: DARNO SANCHEZ MD Procedure: MR lumbar spine wo [...] are noted as above. Impression dictated by: Srinivasa Bach M.D. 10/01/2024 2:34 PM Dictation Location: [place] [address] Electronically authenticated by: [id number] Y Date: 10/01/2024 14:34 Dictated By: Srinivasa Bach M.D. Signed By: 10/01/24 1437 DD/ 1434 TD/TT: [employer] Associate: [facility] Radiology, Radiologi MD noemy - 10/01/2024 [place] [address] Magnetic Resonance Report Signed Patient: LUMA RIBEIRO MR#: [id number] : 1945 Acct:[id number] Age/Sex: 78 / F ADM Date: 10/01/24 Loc: MRI Attending Dr: Daron Sanchez M.D. Ordering Physician: Daron Sanchez M.D. Date of Service: 10/01/24 Procedure(s): MR lumbar spine wo con Accession Number(s): [id number] cc: ROC STEELE ; Daron Sanchez M.D. [facility] [place] [address] Patient Name: LUMA RIBEIRO MRN: [facility]:[id number] date: 1945 Sex: F Assigned Patient Location: MRI Current Patient Location: MRI Accession/Order Number: [id number] Exam Date: 10/01/2024 14:28 Report Date: 10/01/2024 14:34 At the request of: DARON SANCHEZ MD Procedure: MR lumbar spine wo [...] are noted as above. Impression dictated by: Srinivasa Bach M.D. 10/01/2024 2:34 PM Dictation Location: [place] [address] Electronically authenticated by: [id number] Y Date: 10/01/2024 14:34 Dictated By: Srinivasa Bach M.D. Signed By: 10/01/24 1437 DD/ 1434 TD/TT: [employer] Associate: [facility] Radiology Study observation (narrative) [facility] MR LUMBAR SPINE WO Jennifer crawford By: Radiologist Radiology on 10-01-2024 [facility] [employer] Work Phone: NUCLEAR STRESS TESTon 2024 NUCLEAR STRESS TEST Interpreted By: David Walls, and Jett Inman STUDY: MYOCARDIAL PERFUSION STRESS TEST WITH LEXISCAN Performing facility: [facility], [address] [place] [address], [address], [address] Provider: Amber Hawley MD, [facility] PCP: Dr. Madelyn Steele Supervising provider: David Castle MD, [facility] INDICATION: Signs/Symptoms:abn ekg, cp, dizziness, m hld. ,R42 Dizziness and giddiness,R07.89 Other chest pain,R00.2 Palpitations,E78.2 Mixed hyperlipidemia HISTORY: Gender: F; Age: 78 y/o ; Height: HT 162.6 cm cm; Weight: WT 122.018 kg kg. Abnormal EKG; High Cholesterol; HTN; Palpitations; Chest Pain; Denies smoking. COMPARISON: No comparison. ACCESSION NUMBER(S): [id number] ORDERING CLINICIAN: AMBER HAWLEY TECHNIQUE: TWO DAY [...] David Castle 09/19/2024 3:00 PM Dictation workstation: [id number] [facility] TRANSTHORACIC ECHO (TTE) COM PLETEon 09-18-2024 TRANSTHORACIC ECHO (TTE) COMPLETE [address], [address] [place] [address] TRANSTHORACIC ECHOCARDIOGRAM REPORT Patient Name: LUMA Deal Physician: [id number] David Castle MD, [facility] Study Date: 09/18/2024 Ordering Provider: [id number] AMBER HAWLEY MRN/PID: [id number] Fellow: Nurse: Date of /Age: 7 1945 [employer] Associate: Viry ely RDCS, RVT Gender Assigned at F Additional Staff: : Height: 162.56 cm Admit Date: Weight: 122.02 kg Admission Status: Outpatient BSA / BMI: 2.22 m2 / 46.17 Department Location: [facility]/m2 [place] Blood Pressure: 124 /86 mmHg Study Type: TRANSTHORACIC ECHO (TTE) COMPLETE Diagnosis/ICD: Supraventricular tachycardia-I47.1; Abnormal electrocardiogram [ECG] [EKG]-R94.31; Palpitations-R00.2 Indication: Edema, HTN, Hyperlipidemia, Carotid Stenosis, CARO, CKD-Stage III, Morbid Obesity CPT Codes: Echo Complete w Full Doppler-67330 Study Detail: The following Echo studies were [...] 338.04 c (more content not included)... Normal [facility] US Heart TransthoracicOrdere d By: David Castle on 09-18-2024 Aortic Valve Area by Continuity of Peak Velocity 2.[address] [facility] Work Phone: 00 Aortic Valve Area by Continuity of VTI 1.[address] [facility] Work Phone: 00 AV mn grad [address] [facility] Work Phone: AV pk grad [address] [facility] Work Phone: AV pk malinda 1.81 m/s [facility] Work Phone: LA vol index A/L 44.1 ml/m2 [facility] Work Phone: 00 LV A4C EF 42.7 [facility] Work Phone: 00 LV Biplane EF 36 % [facility] Work Phone: LV EF 63 % [facility] Work Phone: LVIDd 4.[address] [facility] Work Phone: [phone] LVOT diam 2.[address] [facility] Work Phone: MV avg E/e' ratio 26.81 [facility] Work Phone: MV E/A ratio 0.79 [facility] Work Phone: RV free wall pk S' 15.98 cm/s [facility] Work Phone: [facility] Work Phone: US Heart Transthoracicon [facility] [address] [place] [address], [address], [place] [address] TRANSTHORACIC ECHOCARDIOGRAM REPORT Patient Name: LUMA Deal Physician: [id number] David Castle MD, [facility] Study Date: 09/18/2024 Ordering Provider: [id number] AMBER HAWLEY MRN/PID: [id number] Fellow: Nurse: Date of /Age: 7 1945 Fun[employer] Home Associate: Viry ely RDCS, RVT Gender Assigned at F Additional Staff: : Height: 162.56 cm Admit Date: Weight: 122.02 kg Admission Status: Outpatient BSA / BMI: 2.22 m2 / 46.17 Department Location: [facility] Heart kg/m2 [place] Blood Pressure: 124 /86 mmHg Study Type: TRANSTHORACIC ECHO (TTE) COMPLETE Diagnosis/ICD: Supraventricular tachycardia-I47.1; Abnormal electrocardiogram [ECG] [EKG]-R94.31; Palpitations-R00.2 Indication: Edema, HTN, Hyperlipidemia, Carotid Stenosis, CARO, CKD-Stage III, Morbid Obesity CPT Codes: Echo Complete w Full Doppler-12961 Study Detail: The following Echo studies were [...] included)... David Mortensen M D - 09/18/[address], Suite [facility], [place] [address] TRANSTHORACIC ECHOCARDIOGRAM REPORT Patient Name: LUMA Deal Physician: [id number] David Castle MD, [facility] Study Date: 09/18/2024 Ordering Provider: [id number] AMBER HAWLEY MRN/PID: [id number] Fellow: Nurse: Date of /Age: 7 1945 Fun[employer] Home Associate: Viry ely RDCS, RVT Gender Assigned at F Additional Staff: : Height: 162.56 cm Admit Date: Weight: 122.02 kg Admission Status: Outpatient BSA / BMI: 2.22 m2 / 46.17 Department Location: [facility]/[address] Blood Pressure: 124 /86 mmHg Study Type: TRANSTHORACIC ECHO (TTE) COMPLETE Diagnosis/ICD: Supraventricular tachycardia-I47.1; Abnormal electrocardiogram [ECG] [EKG]-R94.31; Palpitations-R00.2 Indication: Edema, HTN, Hyperlipidemia, Carotid Stenosis, CARO, CKD-Stage III, Morbid Obesity CPT Codes: Echo Complete w Full Doppler-67094 Study Detail: The following Echo studies were [...] Index: 0.48 AORTI (more content not included)... [facility] Work Phone: LIPID PANEL, STANDARD 06-30 Cholesterol [Mass/Vol] 153 mg/dL Normal <200 [facility] Comment on above: Order Comment: COLLE CTION KIT GIVEN TO PATIENT. PATIENT ADVISED TO RETURN. Performed By: #### 7 [id number] #### [facility] [address], [address] [place] [address] Refrigeration Lead: Bryce Larsen MD Cholesterol in HDL [Mass/Vol] 49 mg/dL Low > OR = 50 [facility] Comment on above: Order Comment: COLLE CTION KIT GIVEN TO PATIENT. PATIENT ADVISED TO RETURN. Performed By: #### 7 600 #### [facility] [address], [address] [place] [address] Refrigeration Lead: Bryce Larsen MD Cholesterol in LDL [Mass/Vol] [...] equation in the estimation of LDL-C. Mike JURADO et al. MARGO. 2013;310(19): 0476-6260 (http://education.[employer].Loopport/faq/RJI379) Performed By: #### 7 600 #### [facility] [address], [address] [place] [address] Refrigeration Lead: Bryce Larsen MD Cholesterol.total/Cho lesterol in HDL [Mass ratio] 3.1 {ratio} Normal <5.0 [facility] Comment on above: Order Comment: COLLE CTION KIT GIVEN TO PATIENT. PATIENT ADVISED TO RETURN. Performed By: #### 7 600 #### [facility] [address], [address] [place] [address] Refrigeration Lead: Bryce Larsen MD NON HDL CHOLESTEROL 104 [...] By: #### 7 600 #### [facility] [address], [address] [place] [address] Refrigeration Lead: Bryce Larsen MD Triglyceride [Mass/Vol] 121 mg/dL Normal <150 [facility] Comment on above: Order Comment: COLLE CTION KIT GIVEN TO PATIENT. PATIENT ADVISED TO RETURN. Performed By: #### 7 600 #### [facility] [address], [address] [place] [address] Refrigeration Lead: Bryce Larsen MD DEXA BONE DENSITYon 07-27-19 [...] Available MM TOMOSYNTHESIS SCREENING B Ion 07-18-[address] [address] Mammography Report Signed Patient: LUMA RIBEIRO MR#: [id number] : 1945 Acct:[id number] Age/Sex: 78 / F ADM Date: 07/17/24 Loc: MAMMO Attending Dr: ROC STEELE Ordering Physician: ROC STEELE Results: Date of Service: 07/17/24 Follow Up: Procedure(s): MM tomosynthesis screening BI Accession Number(s): [id number] cc: USAMAMARIKAROC Patient Name: LUMA RIBEIRO MR#: [id number] : 1945 Exam Date: 07/17/2024 Ordering Doctor: [...] breast cancer at age 61. LOCATION: [facility] BREAST COMPOSITION: There are scattered areas of [...] Signed By: 07/18/24 1620 DD/ 1619 TD/TT: [employer] Program Associate: [facility] RadiologyJodieogmekhi salguero MD - 07/18/2024 [facility] [place] [id number] Mammography Report Signed Patient: LUMA RIBEIRO MR#: [id number] : 1945 Acct:[id number] Age/Sex: 78 / F ADM Date: 07/17/24 Loc: MAMMO Attending Dr: ROC STEELE Ordering Physician: ROC STEELE Results: Date of Service: 07/17/24 Follow Up: Procedure(s): MM tomosynthesis screening BI Accession Number(s): [id number] cc: ROC STEELE Patient Name: LUMA RIBEIRO MR#: [id number] : 1945 Exam Date: 07/17/2024 Ordering Doctor: [...] breast cancer at age 61. 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 Work Phone: [facility] Work Phone: Laboratory - Hematology and Cell countson 07-11-2024 HbA1c (Bld) [Mass fraction] 6.1 % [facility] No Panel Informationon 07-11 [facility] XR HIP 2 OR 3 VW RIGHTon [...] #### 1 0231, 622 #### [facility] [place] [address] Refrigeration Lead: Bryce Larsen MD Albumin/Globulin [Mass ratio] 1.7 {ratio} Normal 1.0-2.5 [facility] Comment on above: Performed By: #### 1 230, 622 #### [facility] [place] [address] Refrigeration Lead: Bryce Larsen MD ALP [Catalytic activity/Vol] 99 U/L Normal 37-153 [facility] Comment on above: Performed By: #### 1 230, 622 #### [facility] [place] [address] Refrigeration Lead: Bryec Larsen MD ALT [Catalytic activity/Vol] 8 U/L Normal 6-29 [facility] Comment on above: Performed By: #### 1 230, 622 #### [facility] [place] [address] Refrigeration Lead: Bryce Larsen MD AST [Catalytic activity/Vol] 19 U/L Normal 10-35 [facility] Comment on above: Performed By: #### 1 230, 622 #### [facility] of [place] [address] Refrigeration Lead: Bryce Larsen MD Bilirubin [Mass/Vol] 0.6 mg/dL Normal 0.2-1.2 [facility] Comment on above: Performed By: #### 1 230, 622 #### [facility] of [place] [address] Refrigeration Lead: Bryce Larsen MD Calcium [Mass/Vol] 8.9 mg/dL Normal 8.6-10.4 [facility] Comment on above: Performed By: #### 1 230, 622 #### [facility] of [place] [address] Refrigeration Lead: Bryce Larsen MD Chloride [Moles/Vol] 104 mmol/L Normal 98-110 [facility] Comment on above: Performed By: #### 1 230, 622 #### [facility] of [place] [address] Refrigeration Lead: Bryce Larsen MD CO2 [Moles/Vol] 27 mmol/L Normal 20-32 [facility] Comment on above: Performed By: #### 1 230, 622 #### [facility] [place] [address] Refrigeration Lead: Bryce Larsen MD Creatinine [Mass/Vol] 1.11 mg/dL High 0.60-1.[address] [facility] Comment on above: Performed By: #### 1 230, 622 #### [facility] of [place] [address] Refrigeration Lead: Bryce Larsen MD GFR/1.73 sq M.predicted among non-blacks MDRD (S/P/Bld) [Vol rate/Area] 51 mL/min/{1.73_m2} Low > OR = 60 [facility] Comment on above: Performed By: #### 1 230, 622 #### [facility] of [place] [id number] Refrigeration Lead: Bryce Larsen MD Globulin (S) [Mass/Vol] 2.3 g/dL Normal 1.9-3.7 [facility] Comment on above: Performed By: #### 1 230, 622 #### [facility] [place] [address] Refrigeration Lead: Bryce Larsen MD Glucose [Mass/Vol] 145 mg/dL High 65-139 [facility] Comment on above: Result Comment: Non-fasting reference interval For someone without known diabetes, a glucose value >125 mg/dL indicates that they may have diabetes and this should be confirmed with a follow-up test. Performed By: #### 1 230, 622 #### [facility] [place] [address] Refrigeration Lead: Bryce Larsen MD Potassium [Moles/Vol] 4.2 mmol/L Normal 3.5-5.[address] [facility] Comment on above: Performed By: #### 1 230, 622 #### [facility] [place] [address] Refrigeration Lead: Bryce Larsen MD Protein [Mass/Vol] 6.3 g/dL Normal 6.1-8.1 [facility] Comment on above: Performed By: #### 1 230, 622 #### [facility] [place] [address] Refrigeration Lead: Bryce Larsen MD Sodium [Moles/Vol] 138 mmol/L Normal 135-146 [facility] Comment on above: Performed By: #### 1 230, 622 #### [facility] [place] [address] Refrigeration Lead: Bryce Larsen MD Urea nitrogen [Mass/Vol] 19 mg/dL Normal 7-25 [facility] Comment on above: Performed By: #### 1 230, 622 #### [facility] [place] [address] Refrigeration Lead: Bryce Larsen MD Urea nitrogen/Creatinine [Mass ratio] 17 mg/mg Normal - [facility] Comment on above: Performed By: #### 1 0231, 622 #### [facility] [place] [address] Refrigeration Lead: Bryce Larsen MD MAGNESIUMon 07-04-2024 Magnesium [Mass/Vol] 2.0 mg/dL Normal 1.5-2.5 [facility] Comment on above: Order Comment: FASTI NG:NO FASTING: NO Performed By: #### 1 0231, 622 #### [facility] [address], [address] [place] [address] Refrigeration Lead: Bryce Larsen MD B TYPE NATRIURETIC PEPTIDE ( BNP)on 06-12-2024 Natriuretic peptide B (Bld) [Mass/Vol] 108 pg/mL High <100 [facility] Comment on above: Result Comment: BNP levels increase with age in the general population with the highest values seen in individuals greater than 75 years of age. Reference: J. Am. Vladislav. Cardiol. 2002; 40:976-982. Performed By: #### 3 7386 #### [facility] [place] [address] Refrigeration Lead: Bryce Larsen MD COMPREHENSIVE METABOLIC PANE Kit 05-23-2024 Albumin [Mass/Vol] 3.6 g/dL Normal 3.6-5.1 [facility] Comment on above: Performed By: #### 6 , 15066 #### [facility] [address], [address] [place] [address] Refrigeration Lead: Bryce Larsen MD Albumin/Globulin [Mass ratio] 1.3 {ratio} Normal 1.0-2.5 [facility] Comment on above: Performed By: #### 6 , 80196 #### [facility] [address], [address] [place] [address] Refrigeration Lead: Bryce Larsen MD ALP [Catalytic activity/Vol] 87 U/L Normal 37-153 [facility] Comment on above: Performed By: #### 6 22, 88771 #### [facility] of [address], [address] [place] [address] Refrigeration Lead: Bryce Larsen MD ALT [Catalytic activity/Vol] 15 U/L Normal 6-29 [facility] Comment on above: Performed By: #### 6 22, 52655 #### [facility] [place] [address] Refrigeration Lead: Bryce Larsen MD AST [Catalytic activity/Vol] 31 U/L Normal 10-35 [facility] Comment on above: Performed By: #### 6 22, 32134 #### [facility] [place] [address] Refrigeration Lead: Bryce Larsen MD Bilirubin [Mass/Vol] 0.5 mg/dL Normal 0.2-1.2 [facility] Comment on above: Performed By: #### 6 , 81451 #### [facility] [place] [address] Refrigeration Lead: Bryce Larsen MD Calcium [Mass/Vol] 9.1 mg/dL Normal 8.6-10.4 [facility] Comment on above: Performed By: #### 6 22, 98201 #### [facility] [place] [address] Refrigeration Lead: Bryce Larsen MD Chloride [Moles/Vol] 103 mmol/L Normal 98-110 [facility] Comment on above: Performed By: #### 6 22, 37238 #### [facility] [place] [address] Refrigeration Lead: Bryce Larsen MD CO2 [Moles/Vol] 27 mmol/L Normal 20-32 [facility] Comment on above: Performed By: #### 6 22, 19949 #### [facility] [place] [address] Refrigeration Lead: Bryce Larsen MD Creatinine [Mass/Vol] 1.04 mg/dL High 0.60-1.[address] [facility] Comment on above: Performed By: #### 6 , 39071 #### [facility] [place] [address] Refrigeration Lead: Bryce Larsen MD GFR/1.73 sq M.predicted among non-blacks MDRD (S/P/Bld) [Vol rate/Area] 55 mL/min/{1.73_m2} Low > OR = 60 [facility] Comment on above: Performed By: #### 6 , 00190 #### [facility] [place] [address] Refrigeration Lead: Bryce Larsen MD Globulin (S) [Mass/Vol] 2.7 g/dL Normal 1.9-3.7 [facility] Comment on above: Performed By: #### 6 , 05378 #### [facility] [place] [address] Refrigeration Lead: Bryce Larsen MD Glucose [Mass/Vol] 73 mg/dL Normal 65-139 [facility] Comment on above: Result Comment: Non-fasting reference interval Performed By: #### 6 22, 05664 #### [facility] [place] [address] Refrigeration Lead: Bryce Larsen MD Potassium [Moles/Vol] 4.7 mmol/L Normal 3.5-5.[address] [facility] Comment on above: Performed By: #### 6 , 23027 #### [facility] [place] [address] Refrigeration Lead: Bryce Larsen MD Protein [Mass/Vol] 6.3 g/dL Normal 6.1-8.1 [facility] Comment on above: Performed By: #### 6 , 55113 #### [facility] [place] [address] Refrigeration Lead: Bryce Larsen MD Sodium [Moles/Vol] 137 mmol/L Normal 135-146 [facility] Comment on above: Performed By: #### 6 22, 13702 #### [facility] [address], [address] [place] [address] Refrigeration Lead: Bryce Larsen MD Urea nitrogen [Mass/Vol] 15 mg/dL Normal 7-25 [facility] Comment on above: Performed By: #### 6 22, 15164 #### [facility] [address], [address] [place] [address] Refrigeration Lead: Bryce Larsen MD Urea nitrogen/Creatinine [Mass ratio] 14 mg/mg Normal 6- [facility] Comment on above: Performed By: #### 6 22, 40263 #### [facility] [address], [address] [place] [address] Refrigeration Lead: Bryce Larsen MD MAGNESIUMon 05-23-2024 Magnesium [Mass/Vol] 1.9 mg/dL Normal 1.5-2.5 [facility] Comment on above: Order Comment: FASTI NG:NO FASTING: NO Performed By: #### 6 22, 93511 #### [facility] [address], [address] [place] [address] Refrigeration Lead: Bryce Larsen MD ALL BASIC METABOLIC PANELon 05-16-2024 Anion gap [Moles/Vol] 12 mmol/L [facility] Calcium [Mass/Vol] 9 mg/dL 8.5 - 10. 1 mg/dL [facility] Chloride [Moles/Vol] 98 mmol/L 98 - 10 7 mmol/L [facility] CO2 [Moles/Vol] 29.6 mmol/L 21.0 - 32.0 mmol/L [facility] Creatinine [Mass/Vol] 1.42 mg/dL High 0.55 - 1.02 mg/dL [facility] GFR/1.73 sq M.predicted CKD-EPI (S/P/Bld) [Vol rate/Area] 43 Low >=60 mL/min/1.7 3m 2 [facility] Glucose [Mass/Vol] 74 mg/dL 74 - 106 mg/dL [facility] Interpretation and review of laboratory results Abnormal [facility] Potassium [Moles/Vol] 3.6 mmol/L 3.5 - 5.1 mmol/L [facility] Sodium [Moles/Vol] 136 mmol/L 136 - 145 mmol/L [facility] EGFR-NON AF [place]I 36 Low >=60 mL/min/1.7 3m 2 [facility] Urea nitrogen [Mass/Vol] 36 mg/dL High 7.0 - 18.0 mg/dL [facility] Urea nitrogen/Creatinine [Mass ratio] 25.4 mg/mg [facility] X[facility] chest 2V*on 04-29-2024 XR chest 2V* [facility] [place] [address] [place] [address] XRay Report Signed Patient: Luma Ribeiro MR#: [id number] : 1945 Acct:[id number] Age/Sex: 78 / F ADM Date: 04/29/24 Loc: XDUCLY Room: Type: [facility] 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 [employer] SUPERVISOR Copies to: Mala Sapp APRN Ordering Provider: [...] R Christopher M.D.04/29/2024 4:00 PM Dictation Location: [place] [address] Transcribed By: ALEXEY 04/29/24 1600 Dictated By: Jose R Christopher DO 04/29/24 1559 Signed By: 04/29/24 1600 Normal [facility] XR CHEST 2 VIEWSon [...] de hand and wrist EMG 1 Extremeityon [facility] 7-8 Nerveson 03-07-2024 [facility] Established Visit (Orthopaed ic Surgery)on [...] Complaint RT shoulder Ongoing issue 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 Distal pulses and sensation are intact. Limited forward flexion to about 25 degrees lateral abduction to about 15 unable to perform any external rotation but internal he can get to the small of her back. Her exam does not allow for much of a true Neer's Shelby or Spencer's test. Diagnostics: See dictated report from today, previous outside CT scan report of the humerus reviewed, and is available in the [facility] chart. 1 Procedure: None Assessment: Chronic [...] the patient's CT scan report reviewed in [facility] chart Other 1 than the anterior [...] grammatical areas may persist related to the [employer] (more content not included)... Normal [employer] [facility] 10-04-2022 XR Shoulder 2 Views Normal [facility] Phone: SHOULDER, CMPLT, MIN 2 VIEWS on 10-04-2022 SHOULDER, CMPLT, MIN 2 VIEWS Patient Name: LUMA RIBEIRO STUDY: SHOULDER, CMPLT, MIN 2 VIEWS; Right; 10/04/2022 1:49 pm INDICATION: pain M25.519: Shoulder pain. ACCESSION NUMBER(S): [id number] ORDERING CLINICIAN: TANIYA AL FINDINGS: Multiple views [...] Electronically signed by: TANIYA AL MD Normal [facility] CT HUMERUS RIGHT W/O CONTRAS Ton 09-12-2022 [...] by Pernell Wiley on 09/12/[address] [facility] XR Chest 2 Views*on 09-13-19 23 XR [...] by Pernell Wiley on 09/12/[address] [facility] XR CHEST 2 Von 09-05-2022 XR CHEST [...] ISAEL HANSEN Date: 2022-09-05 15:11 Normal [facility] XR KUB 1 VIEWon 09-05-2022 XR KUB [...] by: ISAEL HANSEN Date: 2022-09-05 15:10 Normal [facility] AMYLASEon 09-03-2022 Amylase [Catalytic activity/Vol] 34 U/L Normal 25-115 [facility] Comment on above: Performed By: #### L IPA, CMP, CMADM, BNP, GRACIELA #### [facility] [address] [place] [address] Dr. Yonny Meza BNPon 09-03-2022 Natriuretic peptide B (Bld) [Mass/Vol] 241.0 pg/mL Normal <=1,800.0 [facility] Comment on above: Performed By: #### L IPA, CMP, CMADM, BNP, GRACIELA #### [facility] [address] [place] [address] Dr. Yonny Meza CARDIAC SRINIVASA ADMITon 023 CK [Catalytic activity/Vol] 154 U/L Normal 26-192 [facility] Comment on above: Performed By: #### L IPA, CMP, CMADM, BNP, GRACIELA #### [facility] [address] [place] [address] [address] Yonny Meza CK.MB [Mass/Vol] 1.42 ng/mL Normal <=3.60 [facility] Comment on above: Performed By: #### L IPA, CMP, CMADM, BNP, GRACIELA #### [facility] [address] [place] [address] Dr. Yonny Meza HSTROP 13.9 pg/mL Normal 4.0-51.3 [facility] Comment on above: Result Comment: CUT- OFF POINTS HAVE BEEN ESTABLISHED BASED ON THE FOURTH UNIVERSAL DEFINITIONS OF MYOCARDIAL INFARCTION. THE UPPER REFERENCE LIMIT (URL) OF TROPONIN, DEFINED THE 99TH PERCENTILE OF cTnI DISTRIBUTION IN A REFERENCE POPULATION, HAS BEEN CONFIRMED THE DECISION THRESHOLD FOR ND DIAGNOSIS. Performed By: #### L IPA, CMP, CMADM, BNP, GRACIELA #### [facility] [address] [place] [address] Dr. Yonny Meza DARION 63 ng/mL Normal 9-82 [facility] Comment on above: Performed By: #### L IPA, CMP, CMADM, BNP, GRACIELA #### [facility] [address] [place] [address] Dr. Yonny Meza CBC AUTO DIFFon 09-03-2022 BASO # 0.0 103/ul Normal 0.0-0.1 [facility] Comment on above: Performed By: #### L IPA, CMP, CMADM, BNP, GRACIELA #### [facility] [address] [place] [address] Dr. Yonny Meza Basophils/100 WBC (Bld) 0.4 % Normal 0.2-2.0 [facility] Comment on above: Performed By: #### L IPA, CMP, CMADM, BNP, GRACIELA #### [facility] [address] [place] [address] Dr. Yonny Meza EO # 0.1 103/ul Normal 0.0-0.7 [facility] Comment on above: Performed By: #### L IPA, CMP, CMADM, BNP, GRACIELA #### [facility] [address] [place] [address] Dr. Yonny Meza Eosinophils/100 WBC (Bld) 1.6 % Normal 0.9-7.0 [facility] Comment on above: Performed By: #### L IPA, CMP, CMADM, BNP, GRACIELA #### [facility] [address] [place] [address] Dr. Yonny Meza Erythrocyte distribution width (RBC) [Ratio] 12.6 % Normal 11.0-15.0 [facility] Comment on above: Performed By: #### L IPA, CMP, CMADM, BNP, GRACIELA #### [facility] [address] [place] [address] Dr. Yonny Meza Hematocrit (Bld) [Volume fraction] 38.9 % Normal 36.0-48.0 [facility] Comment on above: Performed By: #### L IPA, CMP, CMADM, BNP, GRACIELA #### [facility] [address] [place] [address] Dr. Yonny Meza Hemoglobin (Bld) [Mass/Vol] 13.0 g/dL Normal 12.0-16.0 [facility] Comment on above: Performed By: #### L IPA, CMP, CMADM, BNP, GRACIELA #### [facility] [address] [place] [address] Dr. Yonny Meza IG # 0.02 10e3/ul Normal 0.00-0.03 [facility] Comment on above: Performed By: #### L IPA, CMP, CMADM, BNP, GRACIELA #### [facility] [address] [place] [address] Dr. Yonny Meza IG % 0.3 % Normal 0.0-0.5 [facility] Comment on above: Performed By: #### L IPA, CMP, CMADM, BNP, GRACIELA #### [facility] [address] [place] [address] Dr. Yonny Meza LYMPH # 2.0 103/ul Normal 1.2-3.8 [facility] Comment on above: Performed By: #### L IPA, CMP, CMADM, BNP, GRACIELA #### [facility] [address] [place] [address] Dr. Yonny Meza Lymphocytes/100 WBC (Bld) 25.3 % Normal 20.5-60.0 [facility] Comment on above: Performed By: #### L IPA, CMP, CMADM, BNP, GRACIELA #### [facility] [address] [place] [address] Dr. Yonny Meza MANUAL DIFF REQ NO Normal [facility] Comment on above: Performed By: #### L IPA, CMP, CMADM, BNP, GRACIELA #### [facility] [address] [place] [address] Dr. Yonny Meza MCH (RBC) [Entitic mass] 31.8 pg Normal 26.7-34.0 [facility] Comment on above: Performed By: #### L IPA, CMP, CMADM, BNP, GRACIELA #### [facility] [address] [place] [address] Dr. Yonny Meza MCHC (RBC) [Mass/Vol] 33.4 g/dL Normal 29.9-35.2 [facility] Comment on above: Performed By: #### L IPA, CMP, CMADM, BNP, GRACIELA #### [facility] [address] [place] [address] Dr. Yonny Meza MCV (RBC) [Entitic vol] 95.1 fL Normal 81.0-99.0 [facility] Comment on above: Performed By: #### L IPA, CMP, CMADM, BNP, GRACIELA #### [facility] [address] [place] [address] Dr. Yonny Meza MONO # 0.9 103/ul Critically high 0.3-0.8 [facility] Comment on above: Performed By: #### L IPA, CMP, CMADM, BNP, GRACIELA #### [facility] [address] [place] [address] Dr. Yonny Meza Monocytes/100 WBC (Bld) 11.5 % Normal 1.7-12.0 [facility] Comment on above: Performed By: #### L IPA, CMP, CMADM, BNP, GRACIELA #### [facility] [address] [place] [address] Dr. Yonny Meza NEUT # 4.8 103/ul Normal 1.4-6.5 [facility] Comment on above: Performed By: #### L IPA, CMP, CMADM, BNP, GRACIELA #### [facility] [address] [place] [address] Dr. Yonny Meza Neutrophils/100 WBC (Bld) 60.9 % Normal 43.0-75.0 [facility] Comment on above: Performed By: #### L IPA, CMP, CMADM, BNP, GRACIELA #### [facility] [address] [place] [address] [address] Yonny Meza Platelet mean volume (Bld) [Entitic vol] 10.1 fL Normal 9.5-13.5 [facility] Comment on above: Performed By: #### L IPA, CMP, CMADM, BNP, GRACIELA #### [facility] [address] [place] [address] Dr. Yonny Meza PLT 252 103/ul Normal 150-450 [facility] Comment on above: Performed By: #### L IPA, CMP, CMADM, BNP, GRACIELA #### [facility] [address] [place] [address] Dr. Yonny Meza RBC 4.09 106/ul Critically low 4.20-5.40 [facility] Comment on above: Performed By: #### L IPA, CMP, CMADM, BNP, GRACIELA #### [facility] [address] [place] [address] Dr. Yonny Meza WBC 7.9 103/ul Normal 4.0-11.0 [facility] Comment on above: Performed By: #### L IPA, CMP, CMADM, BNP, GRACIELA #### [facility] [address] [place] [address] ABD/PELVIS WO CONon [...] HATTIE [place] Date: 2022-09-03 01:11 Normal [facility] ER URINE PROFILEon 3 Bilirubin Ql (U) Negative Normal NEGATIVE [facility] Comment on above: Performed By: #### L IPA, CMP, CMADM, BNP, GRACIELA #### [facility] [address] [place], [place] [address] Dr. Yonny Meza Clarity (U) CLEAR Normal CLEAR [facility] Comment on above: Performed By: #### L IPA, CMP, CMADM, BNP, GRACIELA #### [facility] [address] [place], [place] [address] Dr. Yonny Meza Color (U) LT. YELLOW Normal YELLOW [facility] [facility] Comment on above: Performed By: #### L IPA, CMP, CMADM, BNP, GRACIELA #### [facility] [address] [address] [address] Yonny PATEL A micrscopic examina tion will be performed if indicated. Normal [facility] Comment on above: Performed By: #### L IPA, CMP, CMADM, BNP, GRACIELA #### [facility] [address] [address] [address] Yonny Meza Glucose Ql (U) Negative Normal NEGATIVE [facility] [place] Comment on above: Performed By: #### L IPA, CMP, CMADM, BNP, GRACIELA #### [facility] [address] [address] [address] Yonny Meza Hemoglobin Ql (U) Negative Normal NEGATIVE [facility] Comment on above: Performed By: #### L IPA, CMP, CMADM, BNP, GRACIELA #### [facility] [address] [address] [address] Yonny Meza Ketones Ql (U) Negative Normal NEGATIVE [facility] [place] Comment on above: Performed By: #### L IPA, CMP, CMADM, BNP, GRACIELA #### [facility] [address] [address] [address] Yonny Meza LEUKOCYTES Negative Normal NEGATIVE [facility] Comment on above: Performed By: #### L IPA, CMP, CMADM, BNP, GRACIELA #### [facility] [address] [address] [address] Yonny Meza Nitrite Ql (U) Negative Normal NEGATIVE [facility] [place] Comment on above: Performed By: #### L IPA, CMP, CMADM, BNP, GRACIELA #### [facility] [address] [address] [address] Yonny Meza pH (U) 7.0 [pH] Normal 5-9 [facility] Comment on above: Performed By: #### L IPA, CMP, CMADM, BNP, GRACIELA #### [facility] [address] [address] [address] Yonny Meza SPEC GRAVITY 1.015 Normal 1.005-<=1. 025 [facility] Comment on above: Performed By: #### L IPA, CMP, CMADM, BNP, GRACIELA #### [facility] [address] [place] [address] Dr. Yonny Meza UA PROTEIN Negative Normal NEGATIVE/ TRACE [facility] Comment on above: Performed By: #### L IPA, CMP, CMADM, BNP, GRACIELA #### [facility] [address] [place] [address] Dr. Yonny Meza UR MICRO IND NOT INDICATED Normal [facility] Comment on above: Performed By: #### L IPA, CMP, CMADM, BNP, GRACIELA #### [facility] [address] [place] [address] Dr. Yonny Meza Urobilinogen Qn (U) 0.2 {Arnaud'U}/dL Normal 0.2 - 1. 0 [facility] Comment on above: Performed By: #### L IPA, CMP, CMADM, BNP, GRACIELA #### [facility] [address] [place] [address] Dr. Yonny Meza LACTATE/LACTIC ACIDon 2022 Lactate [Moles/Vol] 2.3 mmol/L Critically high 0.4-2.0 [facility] Comment on above: Performed By: #### L ACT #### [facility] [address] [place] [address] Dr. Yonny Meza Lactate [Moles/Vol] 2.2 mmol/L Critically high 0.4-2.0 [facility] Comment on above: Performed By: #### L IPA, CMP, CMADM, BNP, GRACIELA #### [facility] [address] [place] [address] Dr. Yonny Meza LIPASEon 09-03-2022 Lipase [Catalytic activity/Vol] 88.0 U/L Normal 73.0-393.0 [facility] Comment on above: Performed By: #### L IPA, CMP, CMADM, BNP, GRACIELA #### [facility] [address] [place] [address] Dr. Yonny Meza PROF 14(COMP METB)on 023 Albumin [Mass/Vol] 3.3 g/dL Critically low 3.4-5.0 [facility] Comment on above: Performed By: #### L IPA, CMP, CMADM, BNP, GRACIELA #### [facility] [address] [place] [address] Dr. Yonny Meza Albumin/Globulin [Mass ratio] 0.9 {ratio} Normal [facility] Comment on above: Performed By: #### L IPA, CMP, CMADM, BNP, GRACIELA #### [facility] [address] [address] [address] Yonny Meza ALP [Catalytic activity/Vol] 122 U/L Critically high 46-116 [facility] Comment on above: Performed By: #### L IPA, CMP, CMADM, BNP, GRACIELA #### [facility] [address] [place] [address] Dr. Yonny Meza ALT [Catalytic activity/Vol] 21 U/L Normal 14-59 [facility] Comment on above: Performed By: #### L IPA, CMP, CMADM, BNP, GRACIELA #### [facility] [address] [place] [address] Dr. Yonny Meza Anion gap [Moles/Vol] 12.4 mmol/L Normal [facility] Comment on above: Performed By: #### L IPA, CMP, CMADM, BNP, GRACIELA #### [facility] [address] [place] [address] Dr. Yonny Meza AST [Catalytic activity/Vol] 24 U/L Normal 15-37 [facility] Comment on above: Performed By: #### L IPA, CMP, CMADM, BNP, GRACIELA #### [facility] [address] [address] [address] Yonny Meza Bilirubin [Mass/Vol] 0.4 mg/dL Normal 0.2-1.0 [facility] Comment on above: Performed By: #### L IPA, CMP, CMADM, BNP, GRACIELA #### [facility] [address] [place] [address] Dr. Yonny Meza Calcium [Mass/Vol] 8.7 mg/dL Normal 8.5-10.1 [facility] Comment on above: Performed By: #### L IPA, CMP, CMADM, BNP, GRACIELA #### [facility] [address] [address] [address] Yonny Meza Chloride [Moles/Vol] 105 mmol/L Normal 98-107 [facility] Comment on above: Performed By: #### L IPA, CMP, CMADM, BNP, GRACIELA #### [facility] [address] [address] [address] Yonny Meza CO2 [Moles/Vol] 28.0 mmol/L Normal 21.0-32.0 [facility] Comment on above: Performed By: #### L IPA, CMP, CMADM, BNP, GRACIELA #### [facility] [address] [place] [address] Dr. Yonny Meza Creatinine [Mass/Vol] 1.11 mg/dL Critically high 0.55-1.02 [facility] Comment on above: Performed By: #### L IPA, CMP, CMADM, BNP, GRACIELA #### [facility] [address] [place] [address] Dr. Yonny Meza EGFR-AF KUWAITI 58 mL/min/1.73m2 Critically low >=60 [facility] Comment on above: Performed By: #### L IPA, CMP, CMADM, BNP, GRACIELA #### [facility] [address] [place] [address] Dr. Yonny Meza EGFR-NON AF [place]I 48 mL/min/1.73m2 Critically low >=60 [facility] Comment on above: Performed By: #### L IPA, CMP, CMADM, BNP, GRACIELA #### [facility] [address] [address] [address] Yonny Meza Globulin (S) [Mass/Vol] 3.7 g/dL Normal [facility] Comment on above: Performed By: #### L IPA, CMP, CMADM, BNP, GRACIELA #### [facility] [address] [address] [address] Yonny Meza Glucose [Mass/Vol] 152 mg/dL Critically high 74-106 [facility] Comment on above: Performed By: #### L IPA, CMP, CMADM, BNP, GRACIELA #### [facility] [address] [address] [address] Yonny Meza Potassium [Moles/Vol] 3.4 mmol/L Critically low 3.5-5.1 [facility] Comment on above: Performed By: #### L IPA, CMP, CMADM, BNP, GRACIELA #### [facility] [address] [address] [address] Yonny Meza Protein [Mass/Vol] 7.0 g/dL Normal 6.4-8.2 [facility] Comment on above: Performed By: #### L IPA, CMP, CMADM, BNP, GRACIELA #### [facility] [address] [place] [address] Dr. Yonny Meza Sodium [Moles/Vol] 142 mmol/L Normal 136-145 [facility] Comment on above: Performed By: #### L IPA, CMP, CMADM, BNP, GRACIELA #### [facility] [address] [place] [address] Dr. Yonny Meza Urea nitrogen [Mass/Vol] 14.0 mg/dL Normal 7.0-18.0 [facility] Comment on above: Performed By: #### L IPA, CMP, CMADM, BNP, GRACIELA #### [facility] [address] [place] [address] Dr. Yonny Meza Urea nitrogen/Creatinine [Mass ratio] 12.6 mg/mg Normal [facility] Comment on above: Performed By: #### L IPA, CMP, CMADM, BNP, GRACIELA #### [facility] [address] [place] [address] Dr. Yonny Meza PROTIMEon 09-03-2022 INR Coag (PPP) [Relative time] 1.05 {INR} Normal [facility] Comment on above: Performed By: #### L IPA, CMP, CMADM, BNP, GRACIELA #### [facility] [address] [place] [address] Dr. Yonny Meza INR GUIDELINES SEE BELOW Normal [facility] Comment on above: Result Comment: ASCENCION RED INR: 2.0 - 3.0 CONDITIONS NOT LISTED BELOW 2.5 - 3.5 FOR PROSTHETIC HEART VALVE REPLACEMENT 2.5 - 3.5 RECURRENT THROMBOSIS Performed By: #### L IPA, CMP, CMADM, BNP, GRACIELA #### [facility] [address] [address] [address] Yonny Meza PT Coag (PPP) [Time] 11.1 s Normal 9.0-11.6 [facility] Comment on above: Performed By: #### L IPA, CMP, CMADM, BNP, GRACIELA #### [facility] [address] [place], [place] [address] Dr. Yonny Meza PTTon 09-03-2022 aPTT Coag (Bld) [Time] 26.7 s Normal 22.3-36.2 [facility] Comment on above: Performed By: #### L IPA, CMP, CMADM, BNP, GRACIELA #### [facility] [address] [address] [address] Yonny Meza XR CHEST 1 Von [...] by: HATTIE [place] Date: 2022-09-03 00:08 Normal [facility] MAMM SCREEN 3D RON CADon 06-06-2022 MAMM SCREEN 3D RON CAD Patient: LUMA RIBEIRO Exam Date: 06/06/2022 : 1945 Gender:F Ordering : DR ROC STEELE M.D. Admission #: [id number] Family : Order #: [id number] CLICK HERE TO VIEW EXAM RADIOLOGY REPORT [...] breast cancer at age 61. LOCATION: [facility] BREAST COMPOSITION: Scattered areas fibroglandular density. FINDINGS: [...] Frederick MD on 06/07/2022 at 08:09 Normal [facility] No Panel Informationon 12-16 Please click on the link to view the study images Normal -[facility] Work Phone: Radiologyon 12-03-2020 XR Pelvis and Hip - left 2 Views Normal [facility] Work Phone: MRI Humerus w/wo Contraston 11-20-2020 MRI Humerus w/wo Contrast Normal [facility] Work Phone: Otheron 02-13-2020 Interpreted by: BONIFACIO WARE 15:34MRN: [id number] Name: GEMALUMA STUDY:HIP, UNILATERAL W/PELVIS WHEN PERFORMED 2-3 VIEWS; Right;02/13/2020 1:58 pm INDICATION:pain. 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 No acute bony abnormality orperiprosthetic fracture appreciated. Electronically signed by: TASIA BIRD 10/15/20 15:[address] [facility] Work Phone: Complete Blood Count + Diffe rentialon 01-30-2020 Basophils (Bld) [#/Vol] 0.04 {x10E9/L} See Below [facility] Work Phone: Comment on above: Reference Range: 0.0 0 - 0.10 Basophils/100 WBC (Bld) 0.2 % 0.0 - 2.0 [facility] Work Phone: Eosinophils (Bld) [#/Vol] 0.01 {x10E9/L} See Below [facility] Work Phone: Comment on above: Reference Range: 0.0 0 - 0.40 Eosinophils/100 WBC (Bld) 0.1 % 0.0 - 6.0 [facility] Work Phone: Erythrocyte distribution width (RBC) [Ratio] 13.1 % See Below [facility] Work Phone: Comment on above: Reference Range: 11. 5 - 14.5 Hematocrit (Bld) [Volume fraction] 34.8 % below low threshold See Below [facility] Work Phone: Comment on above: Reference Range: 36. 0 - 46.0 Hemoglobin (Bld) [Mass/Vol] 11.3 g/dL below low threshold See Below [facility] Work Phone: Comment on above: Reference Range: 12. 0 - 16.0 Lymphocytes (Bld) [#/Vol] 2.21 {x10E9/L} See Below [facility] Work Phone: Comment on above: Reference Range: 0.8 0 - 3.00 Lymphocytes/100 WBC (Bld) 12.5 % See Below [facility] Work Phone: [phone] Comment on above: Reference Range: 13. 0 - 44.0 MCHC (RBC) [Mass/Vol] 32.5 g/dL See Below [facility] Work Phone: [phone] Comment on above: Reference Range: 32. 0 - 36.0 MCV (RBC) [Entitic vol] 99 fL 80 - 100 [facility] Work Phone: [phone] Monocytes (Bld) [#/Vol] 1.82 {x10E9/L} above high threshold See Below [facility] Work Phone: [phone] Comment on above: Reference Range: 0.0 5 - 0.80 Monocytes/100 WBC (Bld) 10.3 % 2.0 - 10.0 [facility] Work Phone: [phone] Neutrophils/100 WBC (Bld) 76.3 % See Below [facility] Work Phone: [phone] Comment on above: Reference Range: 40. 0 - 80.0 Platelets (Bld) [#/Vol] 234 {x10E9/L} 150 - 450 [facility] Work Phone: [phone] RBC (Bld) [#/Vol] 3.52 {x10E12/L} below low threshold See Below [facility] Work Phone: [phone] Comment on above: Reference Range: 4.0 0 - 5.20 WBC (Bld) [#/Vol] 17.7 {x10E9/L} above high threshold 4.4 - 11.3 [facility] Work Phone: [phone] Blood Count + Differential 0.6 % 0.0 - 0.9 [facility] Work Phone: [phone] Comment on above: Immature Granulocyte Count (IG) includes promyelocytes, myelocytes and metamyelocytes but does not include bands. Percent differential counts (%) should be interpreted in the context of the absolute cell counts (cells/L). Complete Blood Count + Differential 13.52 {x10E9/L} above high threshold See Below [facility] [place] Work Phone: Comment on above: Reference Range: 1.6 0 - 5.50 Metabolic Panelon 01-30-2020 Anion gap [Moles/Vol] 8 mmol/L below low threshold 10 - 20 [facility] [place] Work Phone: Calcium [Mass/Vol] 8.8 mg/dL 8.6 - 10.[address] [facility] [place] Work Phone: [phone] Chloride [Moles/Vol] 101 mmol/L 98 - 107 [facility] [place] Work Phone: [phone] CO2 [Moles/Vol] 32 mmol/L 21 - 32 [facility] [place] Work Phone: Creatinine [Mass/Vol] 1.00 mg/dL See Below [facility] [place] Work Phone: [phone] Comment on above: Reference Range: 0.5 0 - 1.05 Glucose [Mass/Vol] 128 mg/dL above high threshold 74 - 99 [facility] [place] Work Phone: [phone] Potassium [Moles/Vol] 4.2 mmol/L 3.5 - 5.3 [facility] [place] Work Phone: [phone] Sodium [Moles/Vol] 137 mmol/L 136 - 145 [facility] [place] Work Phone: [phone] Urea nitrogen [Mass/Vol] 14 mg/dL 6 - 23 -[facility] [place] Work Phone: [phone] Otheron 01-30-2020 65 {mL/min/1.73m2} >[address] [address] [facility] [place] Work Phone: [phone] Comment on above: CALCULATIONS OF TONE MATED GFR ARE PERFORMED USING THE MDRD STUDY EQUATION FOR THE IDMS-TRACEABLE CREATININE METHODS. CLIN CHEM 2007;53:766-72 54 {mL/min/1.73m2} Abnormal >60 [facility] Work Phone: Otheron 01-29-2020 Interpreted by: MQAMLC39/01/20 15:21MRN: [id number] Name: LUMA RIBEIRO STUDY:HIP, UNILATERAL W/PELVIS WHEN PERFORMED 2-3 VIEWS; 01/29/2020 12:25 pm INDICATION:s/p right ROSSANA. COMPARISON:01/16/2020 ORDERING CLINICIAN:TASIA BIRD FINDINGS:Pelvis and right hip, three views Interval right total hip arthroplasty noted without periprostheticfracture or lucency. There is no dislocation. IMPRESSION:Right total hip arthroplasty without immediate complicationsElectronically signed by: RAJIV 01/30/20 15:21 Normal [facility] Work Phone: XR Pelvis 1 or 2 views Please click on the link to view the study images Normal [facility] Work Phone: Coronavirus 2019 RNA by PCR, Screening Asymptomticon 01-27-2020 Coronavirus 2019 RNA by PCR, Screening Asymptomtic NOT DETECTED See Below [facility] Work Phone: Comment on above: SOURCE: Nasal, [...] make patient management decisions.Fact sheet for providers: https://www.fda.gov/media/902491/downloadFact sheet for patients: https://www.fda.gov/media/330902/downloadThis test has received FDA Emergency Use Authorization (EUA) and has been verified by [facility] ([facility]). This test is only authorized for the duration of time that circumstances exist to justify the authorization of the emergency use of in vitro diagnostic tests for the detection of SARS-CoV-2 virus and/or diagnosis of COVID-19 infection under section 564(b)(1) of the Act, 21 U.S.C. 360bbb-3(b)(1), unless the authorization is terminated or revoked sooner. [facility] is certified under CLIA-88 as qualified to perform high complexity testing. Testing is performed in the [facility] laboratories located at [address] [place] [address]. Activated Partial Thrombopla stin Timeon 01-20-2020 aPTT Coag (PPP) [Time] 29 {sec} 25 - 35 [facility] Work Phone: Comment on above: THE APTT IS NO LONGE R USED FOR MONITORING UNFRACTIONATED HEPARIN THERAPY. FOR MONITORING HEPARIN THERAPY, USE THE HEPARIN ASSAY. Complete Blood Count + Diffe rentialon 01-20-2020 Basophils (Bld) [#/Vol] 0.04 {x10E9/L} See Below [facility] Work Phone: Comment on above: Reference Range: 0.0 0 - 0.10 Basophils/100 WBC (Bld) 0.5 % 0.0 - 2.0 [facility] Work Phone: Eosinophils (Bld) [#/Vol] 0.09 {x10E9/L} See Below [facility] Work Phone: Comment on above: Reference Range: 0.0 0 - 0.40 Eosinophils/100 WBC (Bld) 1.0 % 0.0 - 6.0 [facility] Work Phone: [phone] Erythrocyte distribution width (RBC) [Ratio] 12.9 % See Below [facility] Work Phone: Comment on above: Reference Range: 11. 5 - 14.5 Hematocrit (Bld) [Volume fraction] 44.6 % See Below [facility] [place] Work Phone: Comment on above: Reference Range: 36. 0 - 46.0 Hemoglobin (Bld) [Mass/Vol] 14.5 g/dL See Below [facility] [place] Work Phone: [phone] Comment on above: Reference Range: 12. 0 - 16.0 Lymphocytes (Bld) [#/Vol] 3.41 {x10E9/L} above high threshold See Below [facility] [place] Work Phone: [phone] Comment on above: Reference Range: 0.8 0 - 3.00 Lymphocytes/100 WBC (Bld) 38.4 % See Below [facility] Work Phone: Comment on above: Reference Range: 13. 0 - 44.0 MCHC (RBC) [Mass/Vol] 32.5 g/dL See Below [facility] [place] Work Phone: [phone] Comment on above: Reference Range: 32. 0 - 36.0 MCV (RBC) [Entitic vol] 100 fL 80 - 100 [facility] Work Phone: [phone] Monocytes (Bld) [#/Vol] 0.81 {x10E9/L} above high threshold See Below [facility] [place] Work Phone: [phone] Comment on above: Reference Range: 0.0 5 - 0.80 Monocytes/100 WBC (Bld) 9.1 % 2.0 - 10.0 [facility] [place] Work Phone: [phone] Neutrophils (Bld) [#/Vol] 4.49 {x10E9/L} See Below [facility] [place] Work Phone: [phone] Comment on above: Reference Range: 1.6 0 - 5.50 Neutrophils/100 WBC (Bld) 50.7 % See Below [facility] Work Phone: Comment on above: Reference Range: 40. 0 - 80.0 Platelets (Bld) [#/Vol] 261 {x10E9/L} 150 - 450 [facility] Work Phone: [phone] RBC (Bld) [#/Vol] 4.48 {x10E12/L} See Below [facility] Work Phone: [phone] Comment on above: Reference Range: 4.0 0 - 5.20 WBC (Bld) [#/Vol] 8.9 {x10E9/L} 4.4 - 11.3 [facility] Work Phone: [phone] Complete Blood Count + Differential 0.3 % 0.0 - 0.9 [facility] Work Phone: [phone] Comment on above: Immature Granulocyte Count (IG) includes promyelocytes, myelocytes and metamyelocytes but does not include bands. Percent differential counts (%) should be interpreted in the context of the absolute cell counts (cells/L). Fructosamine, Serumon 2019 Fructosamine [Moles/Vol] 265 umol/L 0-285 [facility] Work Phone: Comment on above: Published reference interval for apparently healthy subjectsbetween age 20 and 60 is 205 - 285 umol/L and in a poorlycontrolled diabetic population is 228 - 563 umol/L with amean of 396 umol/L. Hematologyon 01-20-2020 INR Coag (PPP) [Relative time] 1.1 {INR} 0.9 - 1.1 [facility] Work Phone: [phone] PT Coag (PPP) [Time] 13.0 {sec} See Below [facility] Work Phone: [phone] Comment on above: Reference Range: 10. 1 - 13.3 Metabolic Panelon 01-20-2020 ALP [Catalytic activity/Vol] 100 U/L 33 - 136 [facility] [place] Work Phone: Anion gap [Moles/Vol] 13 mmol/L 10 - 20 [facility] [place] Work Phone: Bilirubin [Mass/Vol] 0.6 mg/dL 0.0 - 1.2 [facility] [place] Work Phone: Calcium [Mass/Vol] 9.7 mg/dL 8.6 - 10.[address] [place] Work Phone: Chloride [Moles/Vol] 101 mmol/L 98 - 107 [facility] [place] Work Phone: [phone] CO2 [Moles/Vol] 32 mmol/L 21 - 32 -[facility] [place] Work Phone: Creatinine [Mass/Vol] 1.01 mg/dL See Below - [facility] [place] Work Phone: Comment on above: Reference Range: 0.5 0 - 1.05 Glucose [Mass/Vol] 88 mg/dL 74 - [address] [address] [facility] [place] Work Phone: Potassium [Moles/Vol] 3.9 mmol/L 3.5 - 5.3 - [facility] [place] Work Phone: Protein [Mass/Vol] 7.6 g/dL 6.4 - 8.[address] [place] Work Phone: Sodium [Moles/Vol] 142 mmol/L 136 - [address] [address] [facility] [place] Work Phone: Urea nitrogen [Mass/Vol] 15 mg/dL 6 - 23 -[facility] [place] Work Phone: Otheron 01-20-2020 100 1 -[facility] [place] Work Phone: [phone] [facility] [place] Work Phone: [phone] 1 [facility] [place] Work Phone: [phone] 1 [facility] [place] Work Phone: [phone] 1 [facility] [place] Work Phone: [phone] 1 [facility] [place] Work Phone: [phone] Sinus rhythm with occasional premature ventricular complexes [facility] [place] Work Phone: [phone] 1 [facility] [place] Work Phone: [phone] [email or web address] rieveTestByDateTime?Patient TM=[id number]&Date= 0&Time=14%3a54%3a12%3a00&Te stType=ECG&Site=11&OutputTy pe=PDF&Ext=PDF -[facility] [place] Work Phone: [phone] 1 [facility] [place] Work Phone: [phone] 1 [facility] [place] Work Phone: [phone] 1 [facility] [place] Work Phone: [phone] 1 [facility] [place] Work Phone: [phone] 1 [facility] [place] Work Phone: [phone] 1 [facility] [place] Work Phone: [phone] Albumin BCP dye [Mass/Vol] 4.4 g/dL 3.4 - 5.0 [facility] [place] Work Phone: [phone] ALT With P-5'-P [Catalytic activity/Vol] 16 U/L 7 - 45 [facility] [place] Work Phone: Comment on above: Patients treated wit h Sulfasalazine may generate falsely decreased results for ALT. AST With P-5'-P [Catalytic activity/Vol] 23 U/L 9 - 39 [facility] [employer] Work Phone: 65 {mL/min/1.73m2} >[address] For [facility] [employer] [employer] Work Phone: Comment on above: CALCULATIONS OF TONE MATED GFR ARE PERFORMED USING THE MDRD STUDY EQUATION FOR THE IDMS-TRACEABLE CREATININE METHODS. CLIN CHEM 2007;53:766-72 54 {mL/min/1.73m2} Abnormal >[address] For [employer] Phone: Urinalysison 01-20-2020 Appearance (U) HAZY CLEAR [facility] [employer] Phone: Color (U) YELLOW See Below -[facility] [place] [employer] Work Phone: [phone] Comment on above: Reference Range: STR AW,YELLOW Glucose Ql (U) Negative NEGATIVE [facility] [employer] Work Phone: [phone] Ketones Ql (U) Negative NEGATIVE [facility] [employer] Phone: [phone] Leukocyte esterase Test strip Ql (U) Negative NEGATIVE -[place] [facility] [employer] Phone: pH (U) 7.0 [pH] 5.0 - 8.0 -[facility] [employer] Work Phone: [phone] Protein (U) [Mass/Vol] Negative NEGATIVE -[facility] [employer] Work Phone: [phone] RBC (U) [#/Vol] Negative NEGATIVE [facility] [employer] Work Phone: [phone] Specific gravity (U) [Rel density] 1.019 See Below -[facility] [employer] [place] [employer] Phone: [phone] Comment on above: Reference Range: 1.0 05 - 1.035 Urinalysis Negative NEGATIVE [facility] Work Phone: Urinalysis 2.0 mg/dL above high threshold 0.0 - 1.9 [facility] Work Phone: Comment on above: Due to [...] Otheron 01-16-2020 Interpreted by: AGNES ALVARADO01/16/20 13:42MRN: [id number] Name: LUMA RIBEIRO STUDY:HIP, UNILATERAL W/PELVIS WHEN PERFORMED 2-3 VIEWS; Right; 01/16/20201:39 pm INDICATION:pain. ORDERING CLINICIAN:HARSHAL ALVARADO FINDINGS:AP lateral right hip x-ray shows end-stage alvrqviwgnwvrawdqy-sk-noov arthrosis noted. 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 Electronically signed by: HARSHAL ALVARADO 01/16/20 13:42 Normal [facility] Work Phone: Vital Signs Date Time Vital Sign Value Performing Clinician Facility 2024 15:00-0400 Diastolic blood pressure 90 mm[Hg] Amber Hawley MD Work Phone: [facility] 2024 15:00-0400 Systolic blood pressure 130 mm[Hg] Amber Hawley MD Work Phone: [facility] 2024 14:11-0400 Body height 162.6 cm Amber Hawley MD Work Phone: [facility] 2024 14:11-0400 Body mass index (BMI) [Ratio] 44.97 kg/m2 Amber Hawley MD Work Phone: [facility] 2024 14:11-0400 Body weight 118.84 kg Amber Hawley MD Work Phone: [facility] 2024 14:11-0400 Heart rate 72 /min Amber Hawley MD Work Phone: [facility] 10-16-2024 11:33-0400 Body height 157.5 cm Kamila Pride [employer] Work Phone: [facility] 10-16-2024 11:33-0400 Body mass index (BMI) [Ratio] 48.47 kg/m2 Kamila Bigg [employer] Work Phone: [facility] 10-16-2024 11:33-0400 Body weight 120.2 kg Kamila Espitiavely [employer] Work Phone: [facility] 10-16-2024 11:33-0400 Diastolic blood pressure 101 mm[Hg] Kamila [place] [employer] Work Phone: [facility] 10-16-2024 11:33-0400 Heart rate 77 /min Kamila Bigg [employer] Work Phone: [facility] 10-16-2024 11:33-0400 Respiratory rate 17 /min Kamila [place] [employer] Work Phone: [facility] 10-16-2024 11:33-0400 SaO2% (BldA) [Mass fraction] 96 % Kamila Espitiavely [employer] Work Phone: [facility] 10-16-2024 11:33-0400 Systolic blood pressure 182 mm[Hg] Kamila [place] [employer] Work Phone: [facility] 10-10-2024 15:03-0400 Body height 157.5 cm Alex Alfredo DPM Work Phone: [facility] 10-10-2024 15:03-0400 Body mass index (BMI) [Ratio] 49.02 kg/m2 Alex Alfredo DPM Work Phone: [facility] 10-10-2024 15:03-0400 Body weight 121.56 kg Alex Alfredo DPM Work Phone: [facility] 10-10-2024 15:03-0400 Respiratory rate 18 /min Alex Alfredo DPM Work Phone: [facility] 09-18-2024 11:00-0400 Body height 162.[address] 09-18-2024 11:00-0400 Body mass index (BMI) [Ratio] 46.17 kg/m2 [address] 09-18-2024 11:00-0400 Body weight 122.[address] 09-18-2024 11:00-0400 Diastolic blood pressure 86 mm[Hg] [address] 09-18-2024 11:00-0400 Systolic blood pressure 124 mm[Hg] [address] 09-18-2024 10:44-0400 Diastolic blood pressure 78 mm[Hg] [address] 09-18-2024 10:44-0400 Heart rate 67 /min [address] 09-18-2024 10:44-0400 Systolic blood pressure 122 mm[Hg] [address] 08-19-2024 11:24-0400 Body height 157.5 cm Roc Steele MD Work Phone: [facility] 08-19-2024 11:24-0400 Body mass index (BMI) [Ratio] 49.02 kg/m2 Roc Steele MD Work Phone: [facility] 08-19-2024 11:24-0400 Body weight 121.56 kg Roc Steele MD Work Phone: [facility] 08-19-2024 11:24-0400 Diastolic blood pressure 86 mm[Hg] Roc Steele MD Work Phone: [facility] 08-19-2024 11:24-0400 Heart rate 89 /min Roc Steele MD Work Phone: [facility] 08-19-2024 11:24-0400 SaO2% (BldA) [Mass fraction] 96 % Roc Steele MD Work Phone: [facility] 08-19-2024 11:24-0400 Systolic blood pressure 138 mm[Hg] Roc Steele MD Work Phone: [facility] 08-01-2024 14:45-0400 Body height 157.5 cm Alex Alfredo DPM Work Phone: [facility] 08-01-2024 14:45-0400 Body mass index (BMI) [Ratio] 48.65 kg/m2 Alex Alfredo DPM Work Phone: [facility] 08-01-2024 14:45-0400 Body weight 120.66 kg Alex Alfredo DPM Work Phone: [facility] 08-01-2024 14:45-0400 Respiratory rate 16 /min Alex Alfredo DPM Work Phone: [facility] 08-01-2024 13:31-0400 Body height 157.5 cm Kamila Pride [employer] Work Phone: [facility] 08-01-2024 13:31-0400 Body mass index (BMI) [Ratio] 48.73 kg/m2 Kamila [place] [employer] Work Phone: [facility] 08-01-2024 13:31-0400 Body weight 120.84 kg Kamila Bigg [employer] Work Phone: [facility] 08-01-2024 13:31-0400 Diastolic blood pressure 82 mm[Hg] Kamila [place] [employer] Work Phone: [facility] 08-01-2024 13:31-0400 Heart rate 88 /min Kamila [place] [employer] Work Phone: [facility] 08-01-2024 13:31-0400 Respiratory rate 17 /min Kamila Bigg [employer] Work Phone: [facility] 08-01-2024 13:31-0400 SaO2% (BldA) [Mass fraction] 99 % Kamila [place] [employer] Work Phone: [facility] 08-01-2024 13:31-0400 Systolic blood pressure 134 mm[Hg] Kamila Pride [employer] Work Phone: [facility] 07-15-2024 11:25-0400 Body height 162.6 cm Amber Hawley MD Work Phone: [facility] 07-15-2024 11:25-0400 Body mass index (BMI) [Ratio] 46.17 kg/m2 Amber Hawley MD Work Phone: [facility] 07-15-2024 11:25-0400 Body weight 122.02 kg Amber Hawley MD Work Phone: [facility] 07-15-2024 11:25-0400 Diastolic blood pressure 88 mm[Hg] Amber Hawley MD Work Phone: [facility] 07-15-2024 11:25-0400 Heart rate 93 /min Amber Hawley MD Work Phone: [facility] 07-15-2024 11:25-0400 Systolic blood pressure 128 mm[Hg] Amber Hawley MD Work Phone: [facility] 07-11-2024 12:59-0400 Body height 157.5 cm Kamila Pride [employer] Work Phone: [facility] 07-11-2024 12:59-0400 Body mass index (BMI) [Ratio] 49.93 kg/m2 Kamila Pride [employer] Work Phone: [facility] 07-11-2024 12:59-0400 Body weight 123.83 kg Kamila Pride [employer] Work Phone: [facility] 07-11-2024 12:59-0400 Diastolic blood pressure 80 mm[Hg] Kamila Pride [employer] Work Phone: [facility] 07-11-2024 12:59-0400 Heart rate 87 /min Kamila Pride [employer] Work Phone: [facility] 07-11-2024 12:59-0400 SaO2% (BldA) [Mass fraction] 97 % Kamila [place] [employer] Work Phone: [facility] 07-11-2024 12:59-0400 Systolic blood pressure 130 mm[Hg] Kamila Bigg [employer] Work Phone: [facility] 07-03-2024 11:31-0500 Body height 157.5 cm Kamila Bigg [employer] Work Phone: [facility] 07-03-2024 11:31-0500 Body mass index (BMI) [Ratio] 50.22 kg/m2 Kamila [place] [employer] Work Phone: [facility] 07-03-2024 11:31-0500 Body weight 124.56 kg Kamila Bigg [employer] Work Phone: [facility] 07-03-2024 11:31-0500 Diastolic blood pressure 82 mm[Hg] Kamila Bigg [employer] Work Phone: [facility] 07-03-2024 11:31-0500 Heart rate 74 /min Kamila [place] [employer] Work Phone: [facility] 07-03-2024 11:31-0500 Respiratory rate 17 /min Kamila Bigg [employer] Work Phone: [facility] 07-03-2024 11:31-0500 SaO2% (BldA) [Mass fraction] 94 % Kamila Bigg [employer] Work Phone: [facility] 07-03-2024 11:31-0500 Systolic blood pressure 136 mm[Hg] Kamila Bigg [employer] Work Phone: [facility] 06-11-2024 11:07-0500 Body height 157.5 cm Kamila [place] [employer] Work Phone: [facility] 06-11-2024 11:07-0500 Body mass index (BMI) [Ratio] 49.2 kg/m2 Kamila Bigg [employer] Work Phone: [facility] 06-11-2024 11:07-0500 Body weight 122.02 kg Kamila [place] [employer] Work Phone: [facility] 06-11-2024 11:07-0500 Diastolic blood pressure 78 mm[Hg] Kamila Pride [employer] Work Phone: [facility] 06-11-2024 11:07-0500 Heart rate 76 /min Kamila Pride [employer] Work Phone: [facility] 06-11-2024 11:07-0500 Respiratory rate 17 /min Kamila Pride [employer] Work Phone: [facility] 06-11-2024 11:07-0500 SaO2% (BldA) [Mass fraction] 99 % Kamila Pride [employer] Work Phone: [facility] 06-11-2024 11:07-0500 Systolic blood pressure 134 mm[Hg] Kamila Pride [employer] Work Phone: [facility] 05-23-2024 14:37-0500 Body height 157.5 cm Alex Alfredo DPM Work Phone: [facility] 05-23-2024 14:37-0500 Body mass index (BMI) [Ratio] 50.3 kg/m2 Alex Alfredo DPM Work Phone: [facility] 05-23-2024 14:37-0500 Body weight 124.74 kg Alex Alfredo DPM Work Phone: [facility] 05-23-2024 14:37-0500 Respiratory rate 18 /min Alex Alfredo DPM Work Phone: [facility] 05-22-2024 10:11-0500 Body height 157.5 cm Kamila Pride [employer] Work Phone: [facility] 05-22-2024 10:11-0500 Body mass index (BMI) [Ratio] 50.33 kg/m2 Kamila Pride [employer] Work Phone: [facility] 05-22-2024 10:11-0500 Body weight 124.83 kg Kamila Bigg [employer] Work Phone: [facility] 05-22-2024 10:11-0500 Diastolic blood pressure 80 mm[Hg] Kamila [place] [employer] Work Phone: [facility] 05-22-2024 10:11-0500 Heart rate 77 /min Kamila Bigg [employer] Work Phone: [facility] 05-22-2024 10:11-0500 Respiratory rate 18 /min Kamila [place] [employer] Work Phone: [facility] 05-22-2024 10:11-0500 SaO2% (BldA) [Mass fraction] 99 % Kamila [place] [employer] Work Phone: [facility] 05-22-2024 10:11-0500 Systolic blood pressure 128 mm[Hg] Kamila [place] [employer] Work Phone: [facility] 05-15-2024 11:32-0500 Body height 157.5 cm Kamila Bigg [employer] Work Phone: [facility] 05-15-2024 11:32-0500 Body mass index (BMI) [Ratio] 48.54 kg/m2 Kamila [place] [employer] Work Phone: [facility] 05-15-2024 11:32-0500 Body weight 120.39 kg Kamila [place] [employer] Work Phone: [facility] 05-15-2024 11:32-0500 Diastolic blood pressure 76 mm[Hg] Kamila [place] [employer] Work Phone: [facility] 05-15-2024 11:32-0500 Heart rate 97 /min Kamila Bigg [employer] Work Phone: [facility] 05-15-2024 11:32-0500 Respiratory rate 18 /min Kamila Bigg [employer] Work Phone: [facility] 05-15-2024 11:32-0500 SaO2% (BldA) [Mass fraction] 98 % Kamila Bigg [employer] Work Phone: [facility] 05-15-2024 11:32-0500 Systolic blood pressure 126 mm[Hg] Kamila [place] [employer] Work Phone: [facility] 05-07-2024 10:53-0500 Body height 157.5 cm Kamila [place] [employer] Work Phone: [facility] 05-07-2024 10:53-0500 Body mass index (BMI) [Ratio] 48.87 kg/m2 Kamila [place] [employer] Work Phone: [facility] 05-07-2024 10:53-0500 Body weight 121.2 kg Kamila [place] [employer] Work Phone: [facility] 05-07-2024 10:53-0500 Diastolic blood pressure 82 mm[Hg] Kamila [place] [employer] Work Phone: [facility] 05-07-2024 10:53-0500 Heart rate 88 /min Kamila [place] [employer] Work Phone: [facility] 05-07-2024 10:53-0500 Respiratory rate 18 /min Kamila [place] [employer] Work Phone: [facility] 05-07-2024 10:53-0500 SaO2% (BldA) [Mass fraction] 95 % Kamila Bigg [employer] Work Phone: [facility] 05-07-2024 10:53-0500 Systolic blood pressure 130 mm[Hg] Kamila [place] [employer] Work Phone: [facility] 04-03-2024 08:32-0500 Body height 157.5 cm Kamila Bigg [employer] Work Phone: [facility] 04-03-2024 08:32-0500 Body mass index (BMI) [Ratio] 49.6 kg/m2 Kamila [place] [employer] Work Phone: [facility] 04-03-2024 08:32-0500 Body weight 123.02 kg Kamila Bigg [employer] Work Phone: [facility] 04-03-2024 08:32-0500 Diastolic blood pressure 80 mm[Hg] Kamila [place] [employer] Work Phone: [facility] 04-03-2024 08:32-0500 Heart rate 74 /min Kamila [place] [employer] Work Phone: [facility] 04-03-2024 08:32-0500 Respiratory rate 17 /min Kamila Bigg [employer] Work Phone: [facility] 04-03-2024 08:32-0500 SaO2% (BldA) [Mass fraction] 98 % Kamila Bigg [employer] Work Phone: [facility] 04-03-2024 08:32-0500 Systolic blood pressure 126 mm[Hg] Kamila Bigg [employer] Work Phone: [facility] 03-05-2024 11:19-0500 Body height 157.5 cm Kamila Bigg [employer] Work Phone: [facility] 03-05-2024 11:19-0500 Body mass index (BMI) [Ratio] 50.85 kg/m2 Kamila [place] [employer] Work Phone: [facility] 03-05-2024 11:19-0500 Body weight 126.1 kg Kamila Bigg [employer] Work Phone: [facility] 03-05-2024 11:19-0500 Diastolic blood pressure 76 mm[Hg] Kamila [place] [employer] Work Phone: [facility] 03-05-2024 11:19-0500 Heart rate 102 /min Kamila Bigg [employer] Work Phone: [facility] 03-05-2024 11:19-0500 SaO2% (BldA) [Mass fraction] 98 % Kamila Bigg [employer] Work Phone: [facility] 03-05-2024 11:19-0500 Systolic blood pressure 134 mm[Hg] Kamila [place] [employer] Work Phone: [facility] 02-22-2024 14:09-0400 Body height 157.5 cm Alex Alfredo DPM Work Phone: [facility] 02-22-2024 14:09-0400 Body mass index (BMI) [Ratio] 50.85 kg/m2 Alex Alferdo DPM Work Phone: [facility] 02-22-2024 14:09-0400 Body weight 126.1 kg Alex Alfredo DPM Work Phone: [facility] 02-22-2024 14:09-0400 Diastolic blood pressure 80 mm[Hg] Alex Brown DPM Work Phone: [facility] 02-22-2024 14:09-0400 Heart rate 82 /min Alex Brown DPM Work Phone: [facility] 02-22-2024 14:09-0400 Systolic blood pressure 126 mm[Hg] Alex Brown DPM Work Phone: [facility] 06-15-2023 14:42-0500 Body height 157.5 cm Alex Brown DPM Work Phone: [facility] 06-15-2023 14:42-0500 Body mass index (BMI) [Ratio] 50.48 kg/m2 Alex Brown DPM Work Phone: [facility] 06-15-2023 14:42-0500 Body weight 125.19 kg Alex Brown DPM Work Phone: [facility] 06-15-2023 14:42-0500 Diastolic blood pressure 82 mm[Hg] Alex Brown DPM Work Phone: [facility] 06-15-2023 14:42-0500 Heart rate 84 /min Alex Brown DPM Work Phone: [facility] 06-15-2023 14:42-0500 Systolic blood pressure 133 mm[Hg] Alex Brown DPM Work Phone: [facility] 06-01-2023 15:33-0500 Body height 157.5 cm Alex Brown DPM Work Phone: [facility] 06-01-2023 15:33-0500 Body mass index (BMI) [Ratio] 50.48 kg/m2 Alex Brown DPM Work Phone: [facility] 06-01-2023 15:33-0500 Body weight 125.19 kg Alex Alfredo DPM Work Phone: [facility] 06-01-2023 15:33-0500 Diastolic blood pressure 80 mm[Hg] Alex Alfredo DPM Work Phone: [facility] 06-01-2023 15:33-0500 Heart rate 79 /min Alex Alfredo DPM Work Phone: [facility] 06-01-2023 15:33-0500 Systolic blood pressure 130 mm[Hg] Alex Alfredo DPM Work Phone: [facility] 01-16-2020 15:36-0400 BMI (Body Mass Index) 46.35 kg/m2 Tasia Pelon [facility] [facility] [place] Work Phone: 01-16-2020 15:36-0400 Body weight 122.47 kg Tasia [facility] Work Phone: 01-16-2020 15:36-0400 BSA (Body Surface Area) 2.22 m2 Tasia [facility] Work Phone: 01-16-2020 15:36-0400 Height 162.56 cm Tasia [facility] Work Phone: Encounters Encounter Date Encounter Type Care Provider Facility Start: 2024 End: 2024 Office outpatient visit 25 minutes Amber Hawley MD Work Phone: [facility] Comment on above: Encounter to discuss test results (Primary Dx); Uses roller walker; Palpitations; Mixed hyperlipidemia; Chest discomfort; CARO on CPAP; Paroxysmal supraventricular tachycardia; Never smoked cigarettes; Body mass index (BMI) 40.0-44.9, adult (Multi) Start: 2024 End: 2024 ambulatory [facility] Start: 11-04-2024 End: 11-04-2024 ambulatory Daron Sanchez MD Facility:[facility] Start: 10-16-2024 End: 10-16-2024 Bamboo flowsheet Kamila Pride [employer] Work Phone: [facility] Start: 10-16-2024 End: 10-16-2024 Bamboo flowsheet Kamila Pride [employer] Work Phone: [facility] Start: 10-16-2024 End: 10-16-2024 Office outpatient visit 15 minutes Kamila Pride [employer] Work Phone: [facility] Comment on above: Acute low back pain without sciatica, unspecified back pain laterality (Primary Dx) Start: 10-16-2024 End: 10-18-2024 Refjavier Steele MD Work Phone: [facility] Comment on above: 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 Start: 10-14-2024 End: 10-14-2024 ambulatory Daron Sanchez MD Facility:[facility] Start: 10-10-2024 End: 10-10-2024 Patient encounter procedure Alex Alfredo DPM Work Phone: [facility] Comment on above: Pain due to onychomy cosis of toenails of both feet (Primary Dx) Start: 10-10-2024 End: 10-10-2024 ambulatory ALEX ALFREDO Not Available Start: 10-01-2024 End: 10-01-2024 Clinisync Result Encounter Generic External Data Provider [facility] External Department Unsolicited Start: 10-01-2024 End: 10-01-2024 Clinisync Result Encounter Generic External Data Provider [facility] External Department Unsolicited Start: 09-19-2024 End: 09-19-2024 ambulatory [facility] Start: 09-18-2024 End: 09-18-2024 Subsequent hospital visit by physician Jessica Dobbins Admin Room 1 [facility] Comment on above: Lightheadedness; Chest discomfort; Palpitations; Mixed hyperlipidemia Paroxysmal supravent ricular tachycardia; Abnormal EKG; Palpitations Start: 09-18-2024 End: 09-18-2024 ambulatory [facility] Start: 09-16-2024 End: 09-16-2024 ambulatory Daron Sanchez MD Facility: [facility] Start: 09-10-2024 End: 09-11-2024 Refill Kamila Pride [employer] Work Phone: [facility] Comment on [...] 08-01-2024 End: 08-01-2024 Bamboo flowsheet Kamila Pride [employer] Work Phone: [facility] Start: 08-01-2024 End: 08-01-2024 Bamboo flowsheet Kamila Pride [employer] Work Phone: [facility] Start: 08-01-2024 End: 08-01-2024 Office outpatient visit 25 minutes Kamila Pride [employer] Work Phone: [facility] Comment on above: SOB (shortness of br eath) (Primary Dx); Chronic cough; Lumbosacral spondylosis without myelopathy; Seasonal allergic rhinitis, unspecified trigger; Age-related osteoporosis without current pathological fracture (CMS/HCC) Start: 08-01-2024 End: 08-01-2024 ambulatory KAMILA PRIDE Not Available Start: 07-26-2024 End: 07-26-2024 ambulatory KAMILA PRIDE Not Available Start: 07-18-2024 End: 07-18-2024 Clinisync Result Encounter Roc Steele MD Work Phone: [facility] External Department Unsolicited Start: 07-18-2024 End: 07-18-2024 Clinisync Result Encounter Roc Steele MD Work Phone: [facility] External Department Unsolicited Start: 07-15-2024 End: 07-15-2024 Office consultation new/estab patient 60 min Amber Hawley MD Work Phone: [facility] Comment on above: Encounter to [facility] with new doctor; Paroxysmal supraventricular tachycardia (CMS-HCC); Abnormal EKG; Lightheadedness; Chest discomfort; Palpitations; Primary hypertension; Stenosis of carotid artery, unspecified laterality; Mixed hyperlipidemia; Stage 3a chronic kidney disease (Multi); Gastroesophageal reflux disease without esophagitis; At high risk for falls; Uses roller walker; Severe obesity (BMI >= 40) (Multi); Never smoked cigarettes Start: 07-15-2024 End: 07-15-2024 ambulatory [facility] Start: 07-11-2024 End: 07-11-2024 Assay of hemosiderin, quant Kmaila Pride NP Work Phone: [facility] Start: 07-11-2024 End: 07-11-2024 Patient encounter procedure Kamila Pride NP Work Phone: [facility] Comment on above: Insomnia, unspecifie d [...] heart failure, unspecified heart failure type (CMS/HCC) Start: 07-11-2024 End: 07-11-2024 ambulatory KAMILA PRIDE Not Available Start: 07-05-2024 End: 07-05-2024 ambulatory KAMILA PRIDE Not Available Start: 07-03-2024 End: 07-03-2024 Bamboo flowsheet Kamila Pride FOOD SERVICE Work Phone: [facility] Start: 07-03-2024 End: 07-03-2024 Bamboo flowshien Pride FOOD SERVICE Work Phone: [facility] Start: 07-03-2024 End: 07-03-2024 Office outpatient visit 25 minutes Kamila Pride FOOD SERVICE Work Phone: [facility] Comment on above: Paroxysmal supravent ricular tachycardia (CMS/HCC) (Primary Dx); Primary insomnia; Acute congestive heart failure, unspecified heart failure type (CMS/HCC); Stage 3b chronic kidney disease (HCC) (CMS/HCC); Weakness; Other fatigue; Pain of right hip; Fall, initial encounter Start: 07-03-2024 End: 07-03-2024 ambulatory KMAILA RPIDE Not Available Start: 06-11-2024 End: 06-11-2024 Bamboo flowsheet Kamila Pride FOOD SERVICE Work Phone: [facility] Start: 06-11-2024 End: 06-11-2024 Bamboo flowsheet Kamila Pride FOOD SERVICE Work Phone: [facility] Start: 06-11-2024 End: 06-11-2024 Office outpatient visit 25 minutes Kamila Pride FOOD SERVICE Work Phone: [facility] Comment on above: Palpitations (Primar y Dx); Acute cough; Acute congestive heart failure, unspecified heart failure type (CMS/HCC); Acute non-recurrent pansinusitis Start: 06-11-2024 End: 06-11-2024 ambulatory KAMILA PIRDE Not Available Start: 05-23-2024 End: 05-23-2024 Patient encounter procedure Alex Alfredo DPM Work Phone: [facility] Comment on above: Pain due to onychomy cosis of toenails of both feet (Primary Dx) Start: 05-23-2024 End: 05-23-2024 ambulatory ALEX ALFREDO Not Available Start: 05-22-2024 End: 05-22-2024 Bamboo flowsheet Kamila Pride FOOD SERVICE Work Phone: [facility] Start: 05-22-2024 End: 05-22-2024 Bamboo flowsheet Kamila Pride FOOD SERVICE Work Phone: [facility] Start: 05-22-2024 End: 05-22-2024 Office outpatient visit 25 minutes Kamila Pride FOOD SERVICE Work Phone: [facility] Comment on above: Stage 3b chronic kid javon disease (HCC) (CMS/HCC) (Primary Dx); Benign essential hypertension (CMS/HCC); Hypomagnesemia; Pneumonia of both lungs due to infectious organism, unspecified part of lung Start: 05-22-2024 End: 05-22-2024 ambulatory KAMILA PRIDE Not Available Start: 05-16-2024 End: 05-16-2024 Clinisync Result Encounter Kamila Pride FOOD SERVICE Work Phone: [facility] Unsolicited Start: 05-16-2024 End: 05-16-2024 Clinisync Result Encounter Kamila Pride FOOD SERVICE Work Phone: [facility] Unsolicited Start: 05-15-2024 End: 05-15-2024 Office outpatient visit 25 minutes Kamila Pride FOOD SERVICE Work Phone: [facility] Comment on [...] Office outpatient visit 25 minutes Kamila Pride FOOD SERVICE Work Phone: [facility] Comment on [...] Start: 04-29-2024 End: 04-29-2024 ambulatory Mala Sapp Facility:[facility] Start: 04-15-2024 End: 04-16-2024 Refill Kamila Pride FOOD SERVICE Work Phone: [facility] Comment on above: Primary insomnia Start: 04-04-2024 End: 04-04-2024 Orders Only Kamila Pride FOOD SERVICE Work Phone: [facility] Comment on above: Acute pulmonary omid a (CMS/HCC) (Primary Dx); Hypokalemia Start: 04-03-2024 End: 04-03-2024 Bamboo flowsheet Kamila Pride FOOD SERVICE Work Phone: [facility] Start: 04-03-2024 End: 04-03-2024 Bamboo flowsheet Kamila Pride FOOD SERVICE Work Phone: [facility] Start: 04-03-2024 End: 04-03-2024 ambulatory KAMILA PRIDE Not Available Start: 04-03-2024 End: 04-03-2024 Office outpatient visit 25 minutes Kamila Pride [employer]OD SERVICE Work Phone: [facility] Comment on above: Acute cough (Primary Dx); Rib pain; Fall, initial encounter; Shortness of breath; Lumbosacral spondylosis without myelopathy; Pain of right hand; Right wrist pain; Acute non-recurrent sinusitis of other sinus Start: 04-03-2024 End: 04-03-2024 ambulatory KAMILA PRIDE Not Available Start: 03-07-2024 End: 03-07-2024 Bamboo flowsheet Waqas Dugan DO Work Phone: [facility] Start: 03-07-2024 End: 03-07-2024 Bamboo flowsheet Waqas Dugan DO Work Phone: [facility] [employer] [facility] Start: 03-07-2024 End: 03-07-2024 Patient encounter procedure Bullopher Ritchie DO Work Phone: [facility] Comment on above: Carpal tunnel syndro me on left (Primary Dx) Start: 03-07-2024 End: 03-07-2024 ambulatory WAQAS DUGAN Not Available Start: 03-05-2024 End: 03-05-2024 Bamboo flowsheet Kamila Pride FOOD SERVICE Work Phone: [facility] Start: 03-05-2024 End: 03-05-2024 Bamboo flowsheet Kamila Pride FOOD SERVICE Work Phone: [facility] Start: 03-05-2024 End: 03-05-2024 Office outpatient visit 25 minutes Kamila Pride [employer]OD SERVICE Work Phone: [facility] Comment on above: Cellulitis of finger of left hand (Primary Dx); Flu vaccine need; Numbness of hand; Encounter for screening mammogram for malignant neoplasm of breast; Lymphadenopathy; Axillary pain, left; Ankylosing spondylitis of thoracic region ([facility]) Start: 03-05-2024 End: 03-05-2024 ambulatory KAMILA PRIDE [...] Comment on above: Benign essential hyp ertension ([facility]) Start: 12-14-2023 End: 12-14-2023 ambulatory ALEX ALFREDO [...] 10-04-2022 Patient encounter procedure OR [facility]NIC[facility] Work Phone: [facility] [place] Work Phone: Start: 10-04-[address] Roc Steele II Facility:[id number] Start: 09-05-2022 End: 09-05-[address] SARABJIT CORNEJO . Facility:[facility] Start: 09-03-2022 End: 09-03-2022 ambulatory SASHA DUTTA . Facility:[facility] Start: 06-06-2022 End: 06-07-[address] ROC STEELE Facility:[facility] Start: 12-16-2020 Patient encounter procedure Mone Weiss MD Work Phone: [facility] [place] Work Phone: Start: 11-25-2020 Chart Update Tasia Crawford Work Phone: [facility] [place] Work Phone: Start: 10-15-2020 Patient encounter procedure Carmen Bird MD Work Phone: [facility] [place] Work Phone: Start: 02-13-2020 Patient encounter procedure Tasia Bird [facility] [place] Work Phone: Start: 01-16-2020 Patient encounter procedure Tasia Bird [facility] [place] Work Phone: Procedures Date Procedure Procedure Detail Performing Clinician Start: 10-01-2024 MR LUMBAR SPINE WO CON Generic External Data Provider Start: 09-18-2024 Echo tthrc r-t 2d w/wom-mode compl spec&colr d Amber Hawley MD Work Phone: Start: 07-26-2024 Lipid 1996 panel - S ade or Plasma Jessica 2 Start: 07-18-2024 MM TOMOSYNTHESIS SCR EENING BI Roc Steele MD Work Phone: Start: 07-15-2024 Ecg routine ecg w/le ast 12 lds w/i&r Amber Hawley MD Work Phone: Start: 07-11-2024 Hemoglobin glycosyla isabel a1c Kamila Pride FOOD SERVICE Work Phone: Start: 05-16-2024 ALL BASIC METABOLIC PANEL Kamila Pride [employer]OD SERVICE Work Phone: Start: 05-12-2024 BLOOD CULTURE 1 Generic External Data Provider Start: 03-07-2024 End: 03-07-2024 Needle emg ea extremty w/paraspinl area complete Waqas Dugan DO Work Phone: Implantation of join t prosthesis Tasia Bird Plan of Treatment Date Care Activity Detail Author Start: 07-26-2029 [address] [facility] Start: 07-26-2026 Screening for osteoporosis Bone Density Scan [facility] Start: 09-18-[address] [facility] Start: 05-16-2025 End: 05-16-2025 Patient encounter procedure 05/16/2025 2:00 PM EST Office Visit [facility] [address] [facility] [address] [place] [address] Amber Hawley MD 917 [facility] [address] [place] [address] [facility] Start: 12-30-2024 Influenza vaccination Influenza Vaccine (#1) [facility] Start: 12-19-2024 End: 12-19-2024 Patient encounter procedure 12/19/2024 3:00 PM EDT Procedure Visit [facility] [address] [facility] [address] [place] [address] Alex Alfredo DPM 3[address] [facility] [address] [place] [address] [facility] Start: 11-20-2024 End: 11-20-2024 Professional / ancillary services management 11/20/2024 2:00 PM EDT Ancillary Procedure [address] [address] [facility] Start: 2024 End: 2024 Patient encounter procedure 2024 2:15 PM EDT Office Visit [address] [address] Amber Hawley MD [address] [address] [facility] Start: 2024 End: 2026 Holter monitor study Holter Or Event Nuclear Operations Specialist Cardiac Services Routine Palpitations Expected: 2024 (Approximate), Expires: 2026 [facility] Service Area Work Phone: Comment on above: Expected: 2024 (Approximate), Expi res: 2026 Start: 11-04-2024 End: 11-04-2024 Patient encounter procedure 11/04/2024 2:30 PM EDT Office Visit [address] [address] Amber Hawley MD [address] [address] [facility] Start: 10-30-2024 End: 10-30-2024 Patient encounter procedure 10/30/2024 11:30 AM EDT Office Visit [facility] [address] [facility] [address] [place] [address] Kamila Pride, FOOD SERVICE [address] [facility] [address] [place] [address] [facility] Start: 10-16-2024 End: 10-16-2024 Patient encounter procedure [facility] Comment on above: Arrived Start: 10-10-2024 End: 10-10-2024 Patient encounter procedure 10/10/2024 3:00 PM EDT Procedure Visit [facility] [address] [facility] [address] [place] [address] Alex Alfredo, DPM [address] [facility] [address] [place] [address] [facility] Start: 09-19-2024 End: 09-19-2024 Professional / ancillary services management 09/19/2024 1:00 PM EDT Ancillary Procedure [facility] [address] [facility] [address] [place] [address] [facility] Start: 09-19-2024 End: 09-19-2024 Patient encounter procedure Sangeetha Jiménez Start: 09-19-2024 Subsequent hospital visit by physician 09/19/2024 11:30 AM EDT Hospital Encounter Sangeetha Jiménez [address] [facility] [address] [place] [phone] [facility] Start: 09-18-2024 End: 09-18-2024 Patient encounter procedure Sangeetha Jiménez Start: 08-01-2024 End: 08-01-2024 Patient encounter procedure [facility] Comment on above: Arrived Start: 07-23-2024 End: 07-23-2024 Professional / ancillary services management 07/23/2024 11:30 AM EDT Ancillary Procedure [facility] [address] [facility] [address] [place] [id number] [facility] Start: 07-15-2024 End: 07-15-2025 Holter monitor study Holter Or Event Nuclear Operations Specialist Cardiac Services Routine Paroxysmal supraventricular tachycardia (CMS-HCC) Abnormal EKG Lightheadedness Chest discomfort Palpitations Expected: 07/15/2024 (Approximate), Expires: 07/15/2025 [facility] Work Phone: Comment on above: Expected: 07/15/2024 (Approximate), Expi res: 07/15/2025 Start: 07-15-2024 End: 07-15-2026 NM Heart Perfusion W stress and W radionuclide IV Nuclear Stress Test Cardiac Nuclear Medicine Routine Lightheadedness Chest discomfort Palpitations Mixed hyperlipidemia Expected: 07/15/2024 (Approximate), Expires: 07/15/2026 [facility] Work Phone: Comment on above: Expected: 07/15/2024 (Approximate), Expi res: 07/15/2026 Start: 07-15-2024 End: 07-15-2026 Heart Transthoracic Transthoracic Echo Complete Echocardiography Routine Paroxysmal supraventricular tachycardia ([facility]) Abnormal EKG Palpitations Expected: 07/15/2024 (Approximate), Expires: 07/15/2026 [facility] Service Area Work Phone: Comment on above: Expected: 07/15/2024 (Approximate), Expi res: 07/15/2026 Start: 07-11-2024 End: 07-11-2025 DXA Skeletal system Views for bone density DEXA bone density Imaging Routine Osteopenia of both hips Decreased estrogen level Expected: 07/11/2024, Expires: 07/11/2025 [facility] [employer] Work Phone: Comment on above: Expected: 07/11/2024, Expires: Start: 07-11-2024 End: 07-11-2025 Lipid 1996 panel - Serum or Plasma Lipid panel Lab Routine Hyperlipidemia, unspecified hyperlipidemia type (CMS/HCC) Medicare annual wellness visit, subsequent Expected: 07/11/2024 (Approximate), Expires: 07/11/2025 [facility] Healthcare Comment on above: Expected: 07/11/2024 (Approximate), Expi res: 07/11/2025 Start: 07-11-2024 End: 07-11-2025 Microalbumin/Creatinine panel in random Urine Microalbumin / creatinine, urine ratio Lab Routine IGT (impaired glucose tolerance) Expected: 07/11/2024 (Approximate), Expires: 07/11/2025 [facility] Healthcare Comment on above: Expected: 07/11/2024 (Approximate), Expi res: 07/11/2025 Start: 07-11-2024 End: 07-11-2024 Patient encounter procedure 07/11/2024 1:00 PM EDT Office Visit [facility] [address] [place] [phone] Kamila Pride NP [address] [place] [address] [facility] Start: 07-06-2024 Medicare Annual Wellness Visit Medicare Annual Wellness Visit (AWV) [facility] Start: 07-05-2024 Medicare Annual Wellness (AWV) Medicare Annual Wellness (AWV) [facility] Start: 07-03-2024 End: 07-03-2025 Comprehensive metabolic 2000 panel - Serum or Plasma Comprehensive metabolic panel Lab Routine Stage 3b chronic kidney disease (HCC) (CMS/HCC) Expected: 07/03/2024 (Approximate), Expires: 07/03/2025 [facility] Healthcare Work Phone: Comment on above: Expected: 07/03/2024 (Approximate), Expi res: 07/03/2025 Start: 07-03-2024 End: 07-03-2025 Magnesium [Mass/volume] in Serum or Plasma Magnesium Lab Routine Stage 3b chronic kidney disease (HCC) (CMS/HCC) Weakness Other fatigue Expected: 07/03/2024 (Approximate), Expires: 07/03/2025 [facility] Healthcare Comment on above: Expected: 07/03/2024 (Approximate), Expi res: 07/03/2025 Start: 07-03-2024 End: 07-03-2025 XR Hip - right 3 Views XR hip right 2 or 3 views Imaging Routine Pain of right hip Fall, initial encounter Expected: 07/03/2024, Expires: 07/03/2025 [facility] Healthcare Comment on above: Expected: 07/03/2024, Expires: Start: 07-03-2024 End: 07-03-2024 Patient encounter procedure 07/03/2024 11:30 AM EST Office Visit [facility] [address] [place] [phone] Kamila Pride NP [address] [place] [address] Arrived [facility] Comment on above: Arrived Start: 06-11-2024 End: 06-11-2025 Natriuretic peptide B [Mass/volume] in Blood B-type natriuretic peptide Lab Routine Acute congestive heart failure, unspecified heart failure type ([facility]) Expected: 06/11/2024 (Approximate), Expires: 06/11/2025 [facility] Work Phone: Comment on above: Expected: 06/11/2024 (Approximate), Expi res: 06/11/2025 Start: 06-11-2024 End: 06-11-2024 Patient encounter procedure 06/11/2024 11:00 AM EST Office Visit [facility] [address] [place] [address] Kamila Pride, FOOD SERVICE [address] [place] [address] Arrived [facility] Comment on above: Arrived Start: 05-23-2024 End: 05-23-2024 Patient encounter procedure 05/23/2024 2:40 PM EST Procedure Visit [facility] [address] [place] [address] Alex Alfredo, DPM [address] [address] [facility] Start: 05-22-2024 End: 05-22-2025 CBC panel - Blood by Automated count CBC Lab Routine Stage 3b chronic kidney disease (HCC) ([facility]) Expected: 05/22/2024 (Approximate), Expires: 05/22/2025 [facility] [...] [address] [place] [address] Kamila Pride NP [address] [place] [address] Arrived [facility] Comment on above: Arrived Start: 05-16-2024 End: 05-16-2024 Patient encounter procedure 05/16/2024 1:00 PM EST Office Visit [facility] [address] [place] [address] Kamila Pride, FOOD SERVICE [address] [place] [address] [facility] Start: 05-15-2024 End: 05-15-2025 [...] [address] [place] [address] Kamila Pride, FOOD SERVICE [address] [place] [address] [facility] Start: 05-14-2024 End: 05-14-2024 Patient encounter procedure 05/14/2024 11:00 AM EST Office Visit [facility] [address] [place] [address] Kamila Pride FOOD SERVICE [address] [place] [address] [facility] Start: 05-02-2024 End: 05-02-2024 Patient encounter procedure 05/02/2024 2:50 PM EST Procedure Visit [facility] [address] [place] [address] Alex Alfredo, DPM [address] [facility] [address] [place] [address] [facility] Start: 04-03-2024 End: 04-03-2025 XR Chest 2 Views [facility] Work Phone: Comment on above: Expected: 04/03/2024, Expires: Start: 04-03-2024 End: 04-03-2025 XR Hand - right 3 Views [facility] Comment on above: Expected: 04/03/2024, Expires: 5 Start: 04-03-2024 End: 04-03-2024 Patient encounter procedure 04/03/2024 9:00 AM EST Office Visit [facility] [address] [place] [address] Kamila Pride FOOD SERVICE [address] [place] [address] Arrived [facility] Comment on above: Arrived Start: 03-07-2024 End: 03-07-2024 Patient encounter procedure 03/07/2024 11:00 AM EST Procedure Visit [facility] [address] [place] [address] Waqas Dugan, DO [address] [place] [address] Numbness of hand [facility] [...] Visit [facility] [address] [facility] [address] [place] [address] Kamila Pride FOOD SERVICE [address] [facility] [address] [place] [address] [facility] Start: 02-22-2024 End: 02-22-2024 Patient encounter procedure [facility] Comment on above: Pain due to onychomycosis of toenails of both feet (Primary Dx) Start: 01-31-2024 Influenza vaccination Influenza Vaccine (#1) [facility] Comment on above: Postponed from 12/31/2023 (Other Medical Reasons) Start: 12-31-2023 COVID-19 Vaccine () COVID-19 Vaccine () [facility] Start: 09-01-2024 Influenza vaccination Influenza Vaccine (#1) [facility] Start: 07-27-2023 End: 07-27-2023 Patient encounter procedure 07/27/2023 3:30 PM EDT Procedure Visit [facility] [address] [facility] [address] [place] [address] Alex Alfredo, EJM [address] [address] [facility] Start: 06-30-2023 Medicare Annual Wellness (AWV) Medicare Annual Wellness (AWV) [facility] Start: 06-29-2023 End: 06-29-2023 Patient encounter procedure 06/29/2023 2:30 PM EST Office Visit [facility] [address] [facility] [address] [place] [address] Alex Alfredo DPM [address] [address] [facility] Start: 06-15-2023 End: 06-15-2023 Patient encounter procedure 06/15/2023 2:30 PM EST Office Visit [facility] [address] [place] [address] Alex Alfredo, DPM [address] [address] [facility] Start: 10-21-2022 Screening for osteoporosis Bone Density Scan [facility] Start: 10-17-2022 NPV, Provider: Roc Alvarado, Status: Pen, Time: 1:30 PM NPV, Provider: Roc Alvarado, Status: Hang, Time: 1:30 PM -[facility] Work Phone: Start: 2021 RSV High Risk: (Elderly (60+) or Population) (1 - 1-dose 75+ series) RSV High Risk: (Elderly (60+) or Population) (1 - 1-dose 75+ series) [facility] Start: 01-29-2021 Creatinine measurement Creatinine Level [facility] Start: 01-29-2021 Diabetes mellitus screening Diabetes Screening [facility] Start: 01-29-2021 [address] measurement Potassium Level [facility] Start: 01-07-2021 FUV, Provider: Tasia Bird, Status: Pen, Time: 2:15 PM FUV, Provider: Tasia Bird, Status: Pen, Time: 2:15 PM -[facility] Work Phone: Start: 12-03-2020 FUV, Provider: Tasia Bird, Status: Pen, Time: 12:45 PM FUV, Provider: Tasia Bird, Status: Pen, Time: 12:45 PM [facility] Work Phone: Start: 1968 DTaP/Tdap/Td Vaccines (1 - Tdap) DTaP/Tdap/Td Vaccines (1 - Tdap) [facility] Start: 1965 Urine screening for protein CKD: Urine Protein Screening [facility] Start: 1964 Diabetes mellitus screening Diabetes Screening [facility] Start: 1964 Hepatitis C screening Hepatitis C Screening [facility] Start: [address] [facility] Start: [address] Panel [facility] BLOOD CULTURE 1 BLOOD CULTURE 1 Lab Routine 05/12/2024 8:10 PM EST [facility] End: 09-18-2024 NM Heart Perfusion W stress and W radionuclide IV [facility] Service Area Work Phone: Comment on above: Once for 1 Occurrences starting 09/19/19 until 09/18/2024 Immunizations Immunization Date Immunization Notes Care Provider Hao allred 03-05-2024 Influenza, High-dose Seasonal, Quadrivalent, Preservative Free Kamila Pride NP Work Phone: [facility] 03-05-2024 influenza virus vacc ine, unspecified formulation Amber Hawley MD Work Phone: [facility] Work Phone: 03-01-2023 Influenza, High-dose Seasonal, Quadrivalent, Preservative Free Alex Alfredo DPM Work Phone: [facility] 03-01-2023 influenza virus vacc ine, unspecified formulation Roc Steele MD Work Phone: [facility] 03-31-2022 Moderna Bivalent Pereira ster Vaccination Alex Alfredo DPM Work Phone: [facility] 03-23-2022 Influenza, High-dose Seasonal, Quadrivalent, Preservative Free Alex Alfredo DPM Work Phone: [facility] 01-28-2021 Influenza, Seasonal, Quadrivalent, Adjuvanted Alex Alfredo DPM Work Phone: [facility] 01-30-2020 influenza, injectabl e, quadrivalent, preservative free Alex Alfredo DPM Work Phone: [facility] 09-26-2019 zoster vaccine recombinant Alex Alfredo DPM Work Phone: [facility] 05-16-2019 zoster vaccine recombinant Alex Alfredo DPM Work Phone: [facility] 01-31-2018 influenza, high dose seasonal, preservative-free Alex Alfredo DPM Work Phone: [facility] 01-25-2017 influenza, high dose seasonal, preservative-free Alex Alfredo DPM Work Phone: [facility] 02-02-2016 influenza, injectabl e, quadrivalent, contains preservative Alex Alfredo DPM Work Phone: [facility] 02-07-2015 pneumococcal conjuga te vaccine, 13 valent Alex Alfredo DPM Work Phone: [facility] 01-30-2015 seasonal influenza, intradermal, preservative free Alex Alfredo DPM Work Phone: [facility] 02-07-2014 seasonal influenza, intradermal, preservative free Alex Alfredo DPM Work Phone: [facility] 12-11-2013 pneumococcal polysaccharide vaccine, 23 valent Alex Alfredo DPM Work Phone: [facility] 01-17-2012 zoster vaccine, live Zoya Alfredo DPM Work Phone: [facility] Healthcare Payers Date Payer Category Payer Private Health Insurance [id number] 2022 Unknown 2008 Medicare [id number] 2008 Medicare [id number] 1959 Medicare [id number] 1959 Unknown [id number] 1946 Unknown [id number] 2.16.84 [id number] 1946 Unknown [id number] 2.16.84 [id number] 1946 Unknown [id number] 2.16.84 [id number] 1946 Unknown [id number] 2.16.8 [id number] 1946 Unknown [id number] 2.16.8 40.1.284920.3.579.2.1259 1946 Unknown [id number] 2.16.8 [id number] 1946 Unknown [id number] 2.16.84 0.1.931814.3.579.2.1259 1946 Unknown [id number] 2.16.84 0.1.581067.3.579.2.1259 1946 Unknown [id number] 2.16.84 0.1.058262.3.579.2.1259 1946 Unknown [id number] 2.16.84 0.1.013376.3.579.2.1258 1946 Unknown [id number] 2.16.84 0.1.353454.3.579.2.1258 1946 Unknown [id number] 2.16.84 0.1.493491.3.579.2.1258 1946 Unknown [id number] 2.16.84 0.1.089725.3.579.2.1258 1946 Unknown [id number] 2.16.84 0.1.287000.3.579.2.1258 1946 Unknown [id number] 2.16.84 0.1.605853.3.579.2.1258 1946 Unknown [id number] 2.16.84 0.1.967035.3.579.2.1258 1945 Unknown [id number] 2.16.84 0.1.877343.3.579.2.1258 1945 Unknown [id number] 2.16.84 0.1.705283.3.579.2.1258 1946 Unknown [id number] 2.16.84 0.1.596972.3.579.2.1258 1946 Unknown [id number] 2.16.84 0.1.735227.3.579.2.1258 1946 Unknown [id number] 2.16.84 0.1.429706.3.579.2.1258 1946 Unknown [id number] 2.16.84 0.1.025345.3.579.2.1258 1946 Unknown [id number] 2.16.84 0.1.873399.3.579.2.1258 1946 Unknown [id number] 2.16.84 0.1.825399.3.579.2.1258 1946 Unknown [id number] 2.16.84 0.1.597382.3.579.2.1259 1946 Unknown [id number] 2.16.84 0.1.167073.3.579.2.1259 1946 Unknown [id number] 2.16. 840.1.572820.3.579.2.196 1946 Unknown [id number] 2.16. 840.1.376457.3.579.2.196 1946 Unknown [id number] 2.16. 840.1.616918.3.579.2.196 1946 Unknown [id number] 2.16. 840.1.194858.3.579.2.1244 1946 Unknown [id number] 2.16. 840.1.721803.3.579.2.1244 1946 Unknown [id number] 2.16. 840.1.349762.3.579.2.1244 1946 Unknown [id number] 2.16.8 40.1.763777.3.579.2.1246 1946 Unknown [id number] 2.16.8 40.1.742208.3.579.2.6 1946 Unknown [id number] 2.16.8 40.1.687006.3.579.2.6 1946 Unknown [id number] 2.16.8 40.1.913861.3.579.2.1246 1946 Unknown [id number] 2.16.8 40.1.134255.3.579.2.1246 1946 Unknown [id number] 2.16.8 40.1.144058.3.579.2.1246 Social History Date Type Detail Facility Start: 11-25-2022 End: 2024 Never a smoker Never a smoker [facility] Work Phone: Start: 10-03-2022 End: 07-15-2024 Tobacco smoking status NHIS Never smoked tobacco [facility] Start: 10-03-2022 End: 07-15-2024 Tobacco use and exposure Smokeless tobacco non-user [facility] Start: 06-01-2023 End: 10-16-2024 Alcohol intake Lifetime non-drinker (finding) [facility] Start: 11-25-2022 End: 2024 Humiliation, Afraid, Rape, and Kick questionnaire [HARK] [...] drinks on 1 occasion? Never [facility] Start: 03-26-2022 How hard is it for y ou [...] got money to buy more. Never true [facility] Start: 1945 Sex Assigned At Not on file [facility] Start: 07-05-2024 End: 09-18-2024 Exposure to SARS-CoV-2 (event) Not sure [facility] Start: 2024 Alcoholic beverage intake Ex-drinker (finding) [facility] Work Phone: NEGATED: Highlighted row - - -[facility] [place] Work Phone: Medical Equipment Procedure Code Equipment Code Equipment Original Text Equipment Identifier Dates Screw, Low Profile Hex, 6.5 X 15 Mm Case [id number] Start: 01-29-2020 Comment on above: Description: Convert ed from [facility]. Please see archived information for full log information. Screw, Low Profile Hex, 6.5 X 25 Mm Case [id number] Start: 01-29-2020 Comment on above: Description: Convert ed from [facility]. Please see archived information for full log information. Head, Femur V40 36mm +2.5mm Biolox Delta Case [id number] Start: 01-29-2020 Comment on above: Description: Convert ed from [facility]. Please see archived information for full log information. Stem, Femur 132d Sz 5 Accolade Ii Case [id number] Start: 01-29-2020 Comment on above: Description: Convert ed from [facility]. Please see archived information for full log information. Shell, Trident Ii, Clusterhole, [place] 52e Case [id number] Start: 01-29-2020 Comment on above: Description: Convert ed from [facility]. Please see archived information for full log information. Liners, Poly 36 X 10 D Trid Crossfire E Case [id number] Start: 01-29-2020 Comment on above: Description: Convert ed from [facility]. Please see archived information for full log information. Functional Status Date Assessment Result Facility 10-16-2024 Patient Health Questionnaire 2 item (PHQ-2) [Reported] [facility] 08-19-2024 Patient Health Questionnaire 2 item (PHQ-2) [Reported] [facility] NEGATED: Highlighted row Functional performance Functional status health issues are not documented Disease [facility] [place] Work Phone: Mental Status Date Assessment Result Facility NEGATED: Highlighted row Cognitive function [Interpretation] Cognitive status health issues are not documented [facility] [place] Work Phone: Clinical Notes 06-01-2023 to 2024 Amber Hawley MD - 2024 2:15 PM EDTPatient InstructionsTelephone Encounter - Alpa Bhagat - 10/17/2024 3:12 PM EDTTelephone Encounter - Alpa Bhagat - 10/17/2024 3:12 PM EDT Note Date & Type Note Facility 2024 History of Present illness Narrative Images from the original note were not included. Chief Complaint: Chief Complaint Patient presents with Follow-up Mlp, echo results Patient was seen initially on 07/15/2024 for palpitations supraventricular tachycardia congestive heart failure. We ordered a Holter monitor echocardiogram and perfusion imaging study and she presents for follow-up. Accompanied by to the office. Subjective : Both patient and get around with the help of a wheeled walker. No falls reported. Occasional cough, notices that she coughs when she tries to eat foods with consistency such as ice cream. Has nocturnal cough. Occasional palpitations. Once in a while she feels like an elephant is sitting on her chest and she has difficulty breathing. Test results were reviewed. Review of Systems 12 point review of systems is negative or noncontributory except as noted History so Far : 1. Lexiscan Myoview August 2024 probably normal distal septal attenuation artifact suspected versus old septal myocardial infarction LVEF 51% transient ischemic dilatation ratio 0.95 2. 30-day event monitor September 17 25-9 patient triggered events 1 auto triggered event normal sinus rhythm 60 to 82 bpm isolated supraventricular premature beats no atrial fibrillation flutter bradycardia or ventricular dysrhythmia symptoms were out of proportion to the extent of objective findings 3. Echocardiogram August 2024-severe concentric left ventricular hypertrophy no regional wall motion abnormality grade 1 impaired diastolic filling mildly dilated left atrium however left atrial diameter was measured at 4.58 cm normal RV systolic function mitral annular calcification trace to mild mitral regurgitation trace tricuspid regurgitation left atrial volume index 43 mL/m LV wall thickness 1.5 cm, trace tricuspid regurgitation, RV systolic pressure not estimated. Cardiomegaly Diverticulosis 2012 Edema Glaucoma (CMS/HCC) Heart [...] INJECTION x7 NERVE BLOCK Left 03/26/2019 T12-L3 AR TOTAL HIP ARTHROPLASTY Left [facility] (01-29-2020 to 01-30-2020) RADIOFREQUENCY ABLATION Left 06/25/2019 L2-L5 REFRACTIVE SURGERY 2015 SHOULDER SURGERY left TOTAL KNEE ARTHROPLASTY Bilateral left 2002 right 2002 US ASPIRATION INJECTION INTERMEDIATE JOINT 12/16/2020 US ASPIRATION INJECTION INTERMEDIATE JOINT 12/16/2020 Objective Wt Readings from Last 3 Encounters: 11/15/24 119 kg (262 lb) 09/18/24 122 kg (269 lb) 07/15/24 122 kg (269 lb) Vitals: 11/15/24 1411 11/15/24 1500 BP: (!) 150/100 130/90 BP Location: Left arm Left arm Patient Position: Sitting Sitting Pulse: 72 Weight: 119 kg (262 lb) Height: 1.626 m (5' 4 ) Physical Exam: Uses walker as ambulatory aid GENERAL APPEARANCE: in no acute distress. CHEST: Symmetric and non-tender. INTEGUMENT: Skin warm and dry HEENT: No gross abnormalities identified.No pallor or scleral icterus. NECK: Supple, no JVD, no bruit. NEURO/PSHCY: Alert and oriented x3; appropriate behavior and responses and responses LUNGS: Clear to auscultation bilaterally; normal respiratory effort. HEART: Rate and rhythm regular with no evident murmur; no gallop appreciated. ABDOMEN: Soft, non tender. MUSCULOSKELETAL: No gross deformities. EXTREMITIES: Warm There is no edema noted. Meds: Current Outpatient Medications Medication Instructions ALPRAZolam (XANAX) 0.25 mg, Nightly PRN calcium citrate-vitamin D3 (Citracal + D Maximum) 315 mg-6.25 mcg (250 unit) tablet 1 tablet, Daily fexofenadine (RADHA) 180 mg, Daily PRN gabapentin (NEURONTIN) 300 mg, 2 times daily HYDROcodone-acetaminophen (Seiling) 5-325 mg tablet 1 tablet, Every 4 hours PRN isosorbide mononitrate ER (IMDUR) 30 mg, oral, Nightly, Do not crush or chew. magnesium oxide (Mag-Ox) 400 mg (241.3 mg elemental) tablet 1 tablet, oral, 2 times daily meloxicam (MOBIC) 15 mg, Daily metoprolol succinate XL (TOPROL XL) 100 mg, oral, Nightly, Do not crush or chew. metoprolol succinate XL (TOPROL-XL) 50 mg, oral, Every morning jpaoewksxlcn-Su-wggd-minerals tablet 1 tablet, Daily nortriptyline (PAMELOR) 30 mg pantoprazole (PROTONIX) 40 mg, Daily RT Prolia 60 mg, Every 6 months simvastatin (ZOCOR) 10 mg, oral, Nightly tiZANidine (ZANAFLEX) 4 mg, 3 times daily zolpidem (AMBIEN) 10 mg, Nightly Allergies: Avelox [moxifloxacin], Ciprofloxacin, and Sulfa (sulfonamide antibiotics) LABS: Testing Reviewed Labs CBC: Lab Results Component Value Date WBC 17.7 (H) 01/30/2020 RBC 3.52 (L) 01/30/2020 HGB 11.3 (L) 01/30/2020 HCT 34.8 (L) 01/30/2020 PLT 234 01/30/2020 CMP: Lab Results Component Value Date NA 137 01/30/2020 K 4.2 01/30/2020 CL 101 01/30/2020 CO2 32 01/30/2020 BUN 14 01/30/2020 CREATININE 1.00 01/30/2020 GLUCOSE 128 (H) 01/30/2020 CALCIUM 8.8 01/30/2020 Reviewed all available pertinent laboratory data and diagnostic testing results that occurred after the last office visit with me Assessment: 1. Encounter to discuss test results 2. Uses ray walker 3. 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 Mixed hyperlipidemia simvastatin (Zocor) 10 mg tablet 5. Chest discomfort isosorbide mononitrate ER (Imdur) 30 mg 24 hr tablet 6. CARO on CPAP 7. Paroxysmal supraventricular tachycardia Follow Up In Cardiology 8. Never smoked cigarettes 9. Body mass index (BMI) 40.0-44.9, adult (Multi) Clinical Decision Making: Based on Review of test results, patient's chest discomfort could be related to GERD/esophageal spasm or microvascular dysfunction. Will add isosorbide mononitrate 30 mg at bedtime She has coughing after swallowing certain food consistency, consider aspiration and swallow evaluation defer to primary She has palpitations, but objectively we could not find much on her 30-day event monitor will increase metoprolol succinate to 100 mg in the evening, she will continue 50 mg in the morning, her palpitations are worse at night To further evaluate for ectopy, we will do a 48-hour Holter monitor prior to her next visit Increase magnesium oxide to 400 mg p.o. twice daily She has left atrial enlargement and also LVH, she is at increased risk for atrial fibrillation but we have not documented any atrial fibrillation at this time. Follow up : 6 months I, Katty Iverson LPN am scribing for, and in the presence of Dr. Amber Hawley MD, [facility]. I, Dr. Amber Hawley MD, [facility], personally performed the services described in the documentation as scribed by Katty Iverson LPN in my presence, and confirm it is both accurate and complete. documented in this encounter [facility] Work Phone: 2024 Instructions Katty Alvarez LPN - 2024 2:15 PM EDT Please bring all medicines, vitamins, and herbal supplements with you when you come to the office. Prescriptions will not be filled unless you are compliant with your follow up appointments or have a follow up appointment scheduled as per instruction of your physician. Refills should be requested at the time of your visit. BMI was above normal measurement. Current weight: 119 kg (262 lb) Weight change since last visit (-) denotes wt loss -7 lbs Weight loss needed to achieve BMI 25: 116.7 Lbs Weight loss needed to achieve BMI 30: 87.6 Lbs Provided instructions on dietary changes Provided instructions on exercise. documented in this encounter [facility] Work Phone: 10-17-2024 Telephone encounter Note Luma was seen yesterday called stating that her medication was not sent in yet. Please send meds to [facility] in [place] [facility] 10-17-2024 Miscellaneous Notes Luma was seen yesterday called stating that her medication was not sent in yet. Please send meds to [facility] in [place] documented in this encounter [facility] 10-16-2024 History of Present illness Narrative Images from the original note were not included. Subjective Patient ID: Luma Ribeiro is a 78 y.o. female who presents for No chief complaint on file.. Luam presents today for a 2 month follow up for medication refills. Patient states she is feeling good, she did go see pain management for hip pain, but they told her the pain is from her back. She was given an injection on Monday and it is helping with the pain. Pain This is a chronic problem. The current episode started more than 1 year ago. The problem occurs constantly. The problem has been gradually improving since onset. Associated with: Degenerative joint disease. The pain is present in the right hip. The pain is severe. The symptoms are aggravated by any movement and inactivity. Past treatments include prescription narcotic, acetaminophen, heat pack, cold pack, prescription NSAID and rest. The treatment provided significant (significant improvement with pain medication) relief. Over the past 2 weeks, how often have you been bothered by any of the following problems? Little interest or pleasure in doing things: Not at all Feeling down, depressed, or hopeless: Not at all Patient Health Questionnaire-2 Score: 0 Current Outpatient Medications on File Prior to [...] tablet 3 gabapentin (Neurontin) 300 MG capsule Take 1 capsule (300 mg) by mouth in the morning and 1 capsule (300 mg) before bedtime. 200 capsule 3 meloxicam (Mobic) 15 MG tablet TAKE 1 TABLET BY MOUTH ONCE DAILY 90 tablet 3 metoprolol succinate XL (Toprol-XL) 50 MG 24 hr tablet TAKE 1 TABLET BY MOUTH IN THE MORNING AND 1 TABLET BY MOUTH BEFORE BEDTIME 180 tablet 3 Multiple Vitamin (Multi Vitamin) tablet 1 (one) time each day at the same time. nortriptyline (Pamelor) 10 MG capsule TAKE 3 CAPSULES BY MOUTH AT BEDTIME ONCE DAILY 270 capsule 3 pantoprazole (ProtoNix) 40 MG EC tablet TAKE 1 TABLET BY MOUTH ONCE DAILY 90 tablet 3 simvastatin (Zocor) 10 MG tablet TAKE 1 TABLET BY MOUTH ONCE DAILY 90 tablet 3 tiZANidine (Zanaflex) 4 MG tablet TAKE 1 TABLET BY MOUTH EVERY 8 HOURS NEEDED 270 tablet 0 zolpidem (Ambien) 10 MG tablet TAKE 1 TABLET BY MOUTH AT BEDTIME 90 tablet 0 [DISCONTINUED] meloxicam (Mobic) 15 MG tablet TAKE 1 TABLET BY MOUTH ONCE DAILY 100 tablet 3 [DISCONTINUED] metoprolol succinate XL (Toprol-XL) 50 MG 24 hr tablet Take 1 tablet (50 mg) by mouth in the morning and 1 tablet (50 mg) before bedtime. 90 tablet 3 [DISCONTINUED] nortriptyline (Pamelor) 10 MG capsule TAKE 3 CAPSULES BY MOUTH AT BEDTIME ONCE DAILY 270 capsule 3 [DISCONTINUED] simvastatin (Zocor) 10 MG tablet TAKE 1 TABLET BY MOUTH ONCE DAILY 100 tablet 3 No current facility-administered medications on file prior [...] of lumbar surgery multiple times HTN (hypertension) Hyperlipidemia Insomnia Lumbago Lumbosacral spondylosis without myelopathy Myalgia, unspecified site Myositis Occlusion and stenosis of unspecified carotid artery without mention of cerebral infarction CARO (obstructive sleep apnea) Osteoarthrosis unspecified wheteher generalized or localized. unspecified site Osteopenia Paroxysmal supraventricular tachycardia (HCC) Past Surgical History: Procedure Laterality Date AMB EPIDURAL STEROID INJECTION 2021 cervical neil ANKLE FRACTURE SURGERY 2018 CATARACT EXTRACTION Bilateral 2015 COLONOSCOPY 2013 HEART CATH 2016 IR INJECTION NERVE BLOCK 2018 and 2019 LUMBAR EPIDURAL INJECTION 2017 to 2021 LUMBAR TRANSFORAMINAL EPIDURAL STEROID INJECTION x7 NERVE BLOCK Left 03/26/2019 T12-L3 AR TOTAL HIP ARTHROPLASTY Left [facility] (01-29-2020 to 01-30-2020) RADIOFREQUENCY ABLATION Left 06/25/2019 L2-L5 REFRACTIVE SURGERY 2015 SHOULDER SURGERY left TOTAL KNEE ARTHROPLASTY Bilateral left 2002 right 2002 US ASPIRATION INJECTION INTERMEDIATE JOINT 12/16/2020 US ASPIRATION INJECTION INTERMEDIATE JOINT 12/16/2020 Visit Vitals Smoking Status Never Review of Systems Constitutional: Negative. HENT: Negative. Eyes: Negative. Respiratory: Negative. Cardiovascular: Negative. Gastrointestinal: Negative. Genitourinary: Negative. Musculoskeletal: Positive for arthralgias, back pain and myalgias. Skin: Negative. Neurological: Negative. Psychiatric/Behavioral: Negative. Endocrine: Negative. Objective Physical Exam Vitals reviewed. Constitutional: Appearance: Normal appearance. HENT: Head: Normocephalic. Nose: Nose normal. Mouth/Throat: Mouth: Mucous membranes are moist. Pharynx: Oropharynx is clear. Eyes: Conjunctiva/sclera: Conjunctivae normal. Cardiovascular: Rate and Rhythm: Normal rate. Pulmonary: Effort: Pulmonary effort is normal. Skin: General: Skin is warm and dry. Neurological: General: No focal deficit present. Mental Status: She is alert and oriented to person, place, and time. Psychiatric: Mood and Affect: Mood normal. Behavior: Behavior normal. Thought Content: Thought content normal. Judgment: Judgment normal. Assessment/Plan 1. Acute low back pain without sciatica, unspecified back pain laterality (Primary) OARRS report generated and reviewed. Medication choice and dosage is appropriate for [...] of medications if applicable. Patient verbalized understanding. No follow-ups on file. documented in this encounter [facility] 10-10-2024 History of Present illness Narrative Patient: Luma [...] supraventricular tachycardia (CMS/HCC) Medications: Current Outpatient Medications: albuterol HFA (Ventolin HFA) 90 mcg/act inhaler, Inhale 2 puffs every 4 (four) hours if needed for wheezing or shortness of breath (cough), Disp: 54 g, Rfl: 3 ALPRAZolam (Xanax) 0.25 MG tablet, Take 1 tablet (0.25 mg) by mouth 2 (two) times a day as needed for anxiety, Disp: 60 tablet, Rfl: 0 Calcium Carb-Cholecalciferol 600-20 MG-MCG chewable tablet, calcium carb 600 mg(1,500 mg)-vit D3 400 unit-minerals chewable tablet Take by oral route., Disp: , Rfl: denosumab (Prolia) 60 MG/ML solution prefilled syringe, Inject 1 mL (60 mg) under the skin 1 (one) time for 1 dose, Disp: 1 mL, Rfl: 0 fexofenadine (Radha) 180 MG tablet, Take 1 tablet (180 mg) by mouth Daily as needed (alleriges), Disp: 90 tablet, Rfl: 3 furosemide (Lasix) 20 MG tablet, Take 1 tablet (20 mg) by mouth Daily, Disp: 90 tablet, Rfl: 3 gabapentin (Neurontin) 300 MG capsule, Take 1 capsule (300 mg) by mouth in the morning and 1 capsule (300 mg) before bedtime., Disp: 200 capsule, Rfl: 3 meloxicam (Mobic) [...] ONCE DAILY, Disp: 90 tablet, Rfl: 3 simvastatin (Zocor) 10 MG [...] min Stress: No Stress Concern Present (11/25/2022) [employer] [place] [employer] - Occupational Stress Questionnaire Feeling of Stress : Only a little Social Connections: Moderately Isolated (11/25/2022) Social Connection and Isolation Panel [NHANES] Frequency of Communication with Friends and Family: More than three times a week Frequency of Social Gatherings with Friends and Family: Once a week Attends Tenriism Services: Never Active Member of Clubs or [...] Alex Alfredo DPM documented in this encounter [facility] 08-19-2024 History of Present illness Narrative Images from the original note were not included. HPI prolia injection Additional comments: Here for injection billed and shipped from [email or web address] Last edited by Katie Ritter LPN on 08/19/2024 11:24 AM. Subjective Patient ID: Luma Ribeiro is a 78 y.o. female who presents for prolia injection (Here for injection billed and shipped from [email or web address]) and Osteoporosis. Patient complains of osteoporosis. She [...] MOUTH TWICE DAILY 200 capsule 3 HYDROcodone-acetaminophen (Seiling) 5-325 MG tablet Take 1 tablet by [...] INJECTION x7 NERVE BLOCK Left 03/26/2019 T12-L3 AR TOTAL HIP ARTHROPLASTY Left [facility] (01-29-2020 to 01-30-2020) RADIOFREQUENCY ABLATION Left 06/25/2019 [...] visit: Age-related osteoporosis without current pathological fracture (CMS/HCC) - Prolia injection today. Osteopenia of both hips Chronic cough - Consider ENT referral if it persists. Follow up in about 2 months (around 10/19/2024). documented in this encounter [facility] 08-01-2024 History of Present illness Narrative Patient: [...] min Stress: No Stress Concern Present (11/25/2022) [employer] [place] [employer] - Occupational Stress Questionnaire Feeling of Stress : Only a little Social Connections: Moderately Isolated (11/25/2022) Social Connection and Isolation Panel [NHANES] Frequency of Communication with Friends and Family: More than three times a week Frequency of Social Gatherings with Friends and Family: Once a week Attends Tenriism Services: Never Active Member of Clubs or [...] Alex Alfredo DPM documented in this encounter [facility] 08-01-2024 History of Present illness Narrative Images [...] INJECTION x7 NERVE BLOCK Left 03/26/2019 T12-L3 AR TOTAL HIP ARTHROPLASTY Left [facility] (01-29-2020 to 01-30-2020) RADIOFREQUENCY ABLATION Left 06/25/2019 [...] lozenges. Lumbosacral spondylosis without myelopathy - HYDROcodone-acetaminophen (Seiling) 5-325 MG tablet; Take 1 tablet by [...] directed. Age-related osteoporosis without current pathological fracture ([facility]) - denosumab (Prolia) 60 MG/ML solution prefilled syringe; Inject 1 mL (60 mg) under the skin 1 (one) time for 1 dose Avoid falls as you can fracture. Take calcium with vitamin D. If you get this medication from your insurance, call the office and we can give you the medication No follow-ups on file. documented in this encounter [facility] 07-15-2024 Note Normal sinus rhythm 93 bpm voltage criteria for left ventricular hypertrophy abnormal R wave progression, 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 Compared to EKG from December 2019, left axis deviation loss of lateral R waves were noted in December 2019. [facility] 07-15-2024 History of Present illness [...] wheeled walkers. Subjective : Was hospitalized at [facility] in May 2024. She was told she [...] disease Father Past Medical History: Cardiomegaly Diverticulosis 2012 Edema Glaucoma ([facility]) Heart disease, unspecified History of lumbar surgery [...] INJECTION x7 NERVE BLOCK Left 03/26/2019 T12-L3 AR TOTAL HIP ARTHROPLASTY Left [facility] (01-29-2020 to 01-30-2020) RADIOFREQUENCY ABLATION Left 06/25/2019 [...] ALPRAZolam (XANAX) 0.25 mg, Nightly PRN HYDROcodone-acetaminophen (Seiling) 5-325 mg tablet 1 tablet, Every 4 [...] occurred after the last office visit with al May 2024 BUN 15 creatinine 1.04 GFR 55 sodium 137 potassium 4.7 liver enzymes normal GFR was 52 in June 2023 Assessment: 1. Encounter to establish care with new doctor ECG 12 Lead 2. Paroxysmal supraventricular tachycardia (CMS-HCC) Follow Up In Cardiology magnesium oxide (Mag-Ox) 400 mg (241.3 mg magnesium) tablet Transthoracic Echo Complete Holter Or Event Nuclear Operations Specialist 3. Abnormal EKG Transthoracic Echo Complete Holter Or Event Nuclear Operations Specialist 4. Lightheadedness Nuclear Stress Test Holter Or Event Nuclear Operations Specialist 5. Chest discomfort Nuclear Stress Test Holter Or Event Nuclear Operations Specialist 6. Palpitations Transthoracic Echo Complete Nuclear Stress Test Holter Or Event Nuclear Operations Specialist 7. Primary hypertension 8. Stenosis of carotid [...] further questions arise, Sincerely, Amber Hawley MD FACC Katty De La Cruz LPN am scribing for, and in the presence of Dr. Amber Hawley MD, FACC. I, Dr. Amber Hawley MD, FACC, personally performed the services described in the documentation as scribed by Katty Iverson LPN in my presence, and confirm it is both accurate and complete. documented in this encounter [facility] Work Phone: 07-15-2024 Instructions Katty Alvarez [...] instructions on exercise. documented in this encounter [facility] Work Phone: 07-11-2024 History of Present illness Narrative HPI Med Refill Additional comments: Lasix--DM [place] Last edited by Katie Ritter LPN on [...] Do you have a medical power of consumer attorney?: Yes Who is your medical power of consumer attorney?: Objective : BP 130/80 Pulse 87 [...] 16. Morbid obesity due to excess calories ([facility]) Discussed goal of BMI < 30. Advised [...] this time. 22. Hyperlipidemia, unspecified hyperlipidemia type ([facility]) This is a chronic medical condition that [...] panel 27. Routine general medical examination at health care facility Reviewed all relevant preventative screenings with the patient in detail. Medicare Wellness form completed and will be scanned into patient's chart. All needed testing was ordered. Will continue with yearly Medicare Wellness exams. No orders of the defined types were placed in this encounter. Electronically signed by Kamila Pride NP on July 11, 2024 documented in this encounter [facility] 07-03-2024 History of Present illness Narrative Images [...] INJECTION x7 NERVE BLOCK Left 03/26/2019 T12-L3 AR TOTAL HIP ARTHROPLASTY Left [facility] (01-29-2020 to 01-30-2020) RADIOFREQUENCY ABLATION Left 06/25/2019 [...] orders for this visit: Paroxysmal supraventricular tachycardia ([facility]CC) - Ambulatory referral to Cardiology; Future Awaiting cardiology appointment. She did not follow up with cardiology as she was supposed to when she got out of the hospital. New referral sent as she wants to go to the certified athletic trainer that her goes to. Primary insomnia - [...] congestive heart failure, unspecified heart failure type ([facility]/HCC) - Ambulatory referral to Cardiology; Future Awaiting cardiology appointment. She did not follow up with cardiology as she was supposed to when she got out of the hospital. New referral sent as she wants to go to the certified athletic trainer that her goes to. Stage 3b chronic kidney disease (HCC) (CMS/HCC) - Comprehensive metabolic panel; Future - Magnesium; [...] follow-ups on file. documented in this encounter [facility] 06-11-2024 History of Present illness Narrative Images [...] for 3 days and she called the coater operator insulation board nurse and they advised her to go [...] INJECTION x7 NERVE BLOCK Left 03/26/2019 T12-L3 AR TOTAL HIP ARTHROPLASTY Left [facility] (01-29-2020 to 01-30-2020) RADIOFREQUENCY ABLATION Left 06/25/2019 [...] to follow up with Dr. Chavez in [facility]. Await his recommendations. She continue on [...] follow-ups on file. documented in this encounter [facility] 05-23-2024 History of Present illness Narrative Patient: [...] min Stress: No Stress Concern Present (11/25/2022) [employer] [place] [employer] - Occupational Stress Questionnaire Feeling of Stress : Only a little Social Connections: Moderately Isolated (11/25/2022) Social Connection and Isolation Panel [NHANES] Frequency of Communication with Friends and Family: More than three times a week Frequency of Social Gatherings with Friends and Family: Once a week Attends Tenriism Services: Never Active Member of Clubs or [...] Alex Alfredo DPM documented in this encounter [facility] 05-22-2024 History of Present illness Narrative Images [...] INJECTION x7 NERVE BLOCK Left 03/26/2019 T12-L3 AR TOTAL HIP ARTHROPLASTY Left [facility] (01-29-2020 to 01-30-2020) RADIOFREQUENCY ABLATION Left 06/25/2019 [...] follow-ups on file. documented in this encounter [facility] 05-15-2024 History of Present illness Narrative Images from the original note were not included. Subjective Patient ID: Luma Ribeiro is a 78 y.o. female who presents for A F/U FOR PNEUMONIA, CHF Luma presents today for F/U for pneumonia and CHF. Was admitted to [facility] on 05-12-24.She is feeling weak and SOB still. Home health has not started. Pt would benefit from Nursing, PT/OT, and aide. PT was diagnosed with generalized weakness, CHF, And pneumonia. She continues on Doxycycline. The hospital discharge pt with an order for Lasix prn. Pt educated on when to take a prn lasix. She verbalized understanding. The hospital set up [facility] but we will set pt up with Erik as they have a contract with [facility]. She is home bound due [...] INJECTION x7 NERVE BLOCK Left 03/26/2019 T12-L3 AR TOTAL HIP ARTHROPLASTY Left [facility] (01-29-2020 to 01-30-2020) RADIOFREQUENCY ABLATION Left 06/25/2019 [...] follow-ups on file. documented in this encounter [facility] 05-07-2024 History of Present illness Narrative Images [...] TWICE DAILY 200 capsule 3 [] HYDROcodone-acetaminophen ([place]) 5-325 MG tablet Take 1 tablet by [...] INJECTION x7 NERVE BLOCK Left 03/26/2019 T12-L3 AR TOTAL HIP ARTHROPLASTY Left [facility] (01-29-2020 to 01-30-2020) RADIOFREQUENCY ABLATION Left 06/25/2019 [...] Morbid (severe) obesity due to excess calories ([facility]) Body mass index (BMI) 45.0-49.9, adult ([facility]) Discussed goal of BMI < 30. Advised [...] follow-ups on file. documented in this encounter [facility] 04-16-2024 Telephone encounter Note OARRS reviewed, Rx sent into patient's pharmacy. [facility] 04-16-2024 Miscellaneous Notes OARRS reviewed, Rx sent into patient's pharmacy. documented in this encounter [facility] 04-03-2024 History of Present illness Narrative Images [...] breathing, coughing, lifting and movement. Treatments tried: [place], cough syrup, muscle relaxer. The treatment provided [...] TWICE DAILY 200 capsule 3 [] HYDROcodone-acetaminophen ([place]) 5-325 MG tablet Take 1 tablet by [...] INJECTION x7 NERVE BLOCK Left 03/26/2019 T12-L3 AR TOTAL HIP ARTHROPLASTY Left [facility] (01-29-2020 to 01-30-2020) RADIOFREQUENCY ABLATION Left 06/25/2019 [...] breathing. Lumbosacral spondylosis without myelopathy - HYDROcodone-acetaminophen ([place]) 5-325 MG tablet; Take 1 tablet by [...] follow-ups on file. documented in this encounter [facility] 03-07-2024 Note Carpal tunnel syndro me, left, severe. Progressed substantially when compared to EDX evaluation in 2021. C8 radiculopathy, left, moderate. Progressed when compared to EDX evaluation in 2021 [facility] 03-07-2024 Note Carpal tunnel syndro me, left, severe. Progressed substantially when compared to EDX evaluation in 2021. C8 radiculopathy, left, moderate. Progressed when compared to EDX evaluation in 2021 [facility] 03-07-2024 History of Present illness Narrative Images from the original note were not included. Reason for Appointment: EMG Patient: Luma Ribeiro : 1945 EMG Computer: Video Recruit Referring Physician: Kamila Pride CNP EMG: PABLO professional shopper: Jimmy Gibson RT(R) Office Location: [place] Reason for EMG: c/o numbness/tingling in left hand/forearm especially in 2nd & 3rd digits, weakness in left hand. No hx of DM. Not on blood thinners. Comments: Procedure was explained to the patient who expressed understanding. Patient appeared to have tolerated the test well despite some discomfort due to the nature of the test. documented in this encounter [facility] 03-05-2024 History of Present illness Narrative Images [...] inciting event Pt feels she has decreased rubber liner strength in left hand Hypertension This is [...] MOUTH TWICE DAILY 200 capsule 3 HYDROcodone-acetaminophen ([place]) 5-325 MG tablet Take 1 tablet by [...] at bedtime 90 tablet 1 [DISCONTINUED] HYDROcodone-acetaminophen ([place]) 5-325 MG tablet Take 1 tablet by [...] INJECTION x7 NERVE BLOCK Left 03/26/2019 T12-L3 AR TOTAL HIP ARTHROPLASTY Left [facility] (01-29-2020 to 01-30-2020) RADIOFREQUENCY ABLATION Left 06/25/2019 [...] need - Influenza, high-dose seasonal, quadrivalent, PF (TPB825) (Fluzone High Dose Quad North 0.7mL dose) [...] follow-ups on file. documented in this encounter [facility] 02-29-2024 Telephone encounter Note OARRS reviewed, Rx sent into patient's pharmacy. [facility] 02-29-2024 Miscellaneous Notes OARRS reviewed, Rx sent into patient's pharmacy. Hydrocodone 325 D[place] She had an appt today for a med follow up with kamila but had to change it due to her not being in. She said she has about 6 pills left. She did reschedule her med follow up for next Monday. documented in this encounter [facility] 02-29-2024 Telephone encounter Note Hydrocodone 325 DDM [place] She had an appt today for a med follow up with kamila but had to change it due to her not being in. She said she has about 6 pills left. She did reschedule her med follow up for next Monday. [facility] 01-29-2024 Telephone encounter Note Amlodipine sent [facility] 01-29-2024 Miscellaneous Notes Amlodipine sent documented in this encounter [facility] 06-15-2023 History of Present illness Narrative Patient: [...] Diagnosis Date Cardiomegaly Diverticulosis 2013 Edema Glaucoma ([facility]) Heart disease, unspecified History of lumbar surgery multiple times HTN (hypertension) ([facility]) Hyperlipidemia ([facility]) Insomnia Lumbago Lumbosacral spondylosis without myelopathy Myalgia, [...] min Stress: No Stress Concern Present (11/25/2022) [employer] [place] [employer] - Occupational Stress Questionnaire Feeling of Stress : Only a little Social Connections: Moderately Isolated (11/25/2022) Social Connection and Isolation Panel [NHANES] Frequency of Communication with Friends and Family: More than three times a week Frequency of Social Gatherings with Friends and Family: Once a week Attends Tenriism Services: Never Active Member of Clubs or [...] Patient may continue with conservative treatments including [id number] anti-inflammatories and other treatments suggested today. Patient may want to be scheduled for surgical intervention in the near future. Patient have the right hallux subungual exostectomy with the lateral left hallux partial permanent nail avulsion in the near future Alex Alfredo DPM documented in this encounter [facility] 06-01-2023 History of Present illness Narrative Patient: [...] Diagnosis Date Cardiomegaly Diverticulosis 2013 Edema Glaucoma ([facility]) Heart disease, unspecified History of lumbar surgery multiple times HTN (hypertension) ([facility]) Hyperlipidemia ([facility]) Insomnia Lumbago Lumbosacral spondylosis without myelopathy Myalgia, [...] min Stress: No Stress Concern Present (11/25/2022) [place] [employer] - Occupational Stress Questionnaire Feeling of Stress : Only a little Social Connections: Moderately Isolated (11/25/2022) Social Connection and Isolation Panel [NHANES] Frequency of Communication with Friends and Family: More than three times a week Frequency of Social Gatherings with Friends and Family: Once a week Attends Tenriism Services: Never Active Member of Clubs or [...] Patient may continue with conservative treatments including [id number] anti-inflammatories and other treatments suggested today. Patient [...] Alex Alfredo DPM documented in this encounter [facility] Evaluation note Diagnosis Subungual exostosis of [...] in this encounter [facility]* Diagnosis Palpitations- Primary Acute cough Acute congestive heart failure, unspecified heart failure type (CMS/HCC) Acute non-recurrent pansinusitis documented [facility] encounter [facility]* Diagnosis Paroxysmal supraventricular tachycardia (CMS/HCC)- Primary Paroxysmal supraventricular tachycardia Primary insomnia Persistent disorder of initiating or maintaining sleep Acute congestive heart failure, unspecified heart failure type (CMS/HCC) Stage 3b chronic kidney disease (HCC) (CMS/HCC) Weakness Other malaise and fatigue Other fatigue Pain of right hip Fall, initial encounter documented in this encounter [facility] HealthcareEvaluation note* Diagnosis Insomnia, unspecified type- Primary Obstructive sleep apnea Obstructive sleep apnea (adult) (pediatric) Chronic cough Cough Benign essential hypertension (CMS/HCC) Essential hypertension, benign Cardiomegaly Exudative age-related macular degeneration of left eye with active choroidal neovascularization (CMS/HCC) 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, unspecified laterality Paroxysmal supraventricular tachycardia (CMS/HCC) Paroxysmal supraventricular tachycardia Gastroesophageal reflux disease with esophagitis without hemorrhage Lumbosacral spondylosis without myelopathy Osteoarthritis of multiple joints, unspecified osteoarthritis type Other secondary osteoarthritis of multiple sites Osteopenia of both hips Primary osteoarthritis of right hip IGT (impaired glucose tolerance) Impaired glucose tolerance test Morbid obesity due to excess calories (CMS/HCC) Vitamin D deficiency Anxiety Anxiety state, unspecified [...] failure type (CMS/HCC) documented in this encounter [facility] HealthcareEvaluation note* Diagnosis Encounter to establish care with new doctor Paroxysmal supraventricular tachycardia ([facility]) Paroxysmal supraventricular tachycardia Abnormal EKG Nonspecific abnormal [...] Never smoked cigarettes documented in this encounter [facility] Work Phone: Evaluation note* Diagnosis Pain due to onychomycosis of toenails of both feet- Primary documented in this encounter [facility] HealthcareEvaluation note* Diagnosis SOB (shortness of breath)- Primary Shortness of breath Chronic cough Cough Lumbosacral spondylosis without myelopathy Seasonal allergic rhinitis, unspecified trigger Age-related osteoporosis without current pathological fracture (CMS/HCC) documented in this encounter [facility] HealthcareEvaluation note* Diagnosis Age-related osteoporosis without current pathological fracture (CMS/HCC)- Primary Osteopenia of both hips Chronic cough Cough documented in this encounter [facility] HealthcareEvaluation note* Diagnosis Lightheadedness Dizziness and giddiness Chest discomfort Other chest pain Palpitations Mixed hyperlipidemia documented in this encounter [facility] Work Phone: Evaluation note* Diagnosis Paroxysmal supraventricular tachycardia Abnormal EKG Nonspecific abnormal electrocardiogram (ECG) (EKG) Palpitations documented in this encounter [facility] Work Phone: Evaluation note* Diagnosis Pain due to onychomycosis of toenails of both feet- Primary documented in this encounter [facility] HealthcareEvaluation note* Diagnosis Acute low back pain without sciatica, unspecified back pain laterality- Primary documented in this encounter [facility] HealthcareEvaluation note* Diagnosis Lumbosacral spondylosis without myelopathy documented in this encounter [facility] HealthcareEvaluation note* Diagnosis Encounter to discuss test results- Primary Other specified counseling Uses roller walker Palpitations Mixed hyperlipidemia Chest discomfort Other chest pain CARO on CPAP Paroxysmal supraventricular tachycardia Never smoked cigarettes Body mass index (BMI) 40.0-44.9, adult (Multi) documented in this encounter [facility] Work Phone: History of Present illness NarrativeLuma is a 75-year-old female patient of Dr. Bird who is here for ultrasound-guided right intraarticular shoulder injection. She has a history of pain and discomfort. She was seen and evaluated and referred to me for first lifetime intraarticular shoulder injection, which the patient accepts.-[facility] Work Phone: History of Present [...] normal pronation supination wrist flexion extension and rubber liner strength. Distal pulses and sensation are intact. Limited forward flexion to about 25 degrees lateral abduction to about 15 unable to perform any external rotation but internal he can get to the small of her back. Herexam does not allow for much of a true Neer's Shelby or Spencer's test. * Diagnostics: See dictated report from today, previous outside CT scan report of the humerus reviewed, and is available in the [facility] chart. * Procedure: None * Assessment: [...] the patient's CT scan report reviewed in [facility] Other than the anterior medial dislocation [...] grammatical areas may persist related to the [employer] software * Taniya Al MD * Office: * . [facility] Work Phone: History of Present illness Narrative* Alex Alfredo DPM - 02/22/2024 2:50 PM EDT Patient: [...] Diagnosis Date Cardiomegaly Diverticulosis 2013 Edema Glaucoma ([facility]) Heart disease, unspecified History of lumbar surgery multiple times HTN (hypertension) ([facility]) Hyperlipidemia ([facility]) Insomnia Lumbago Lumbosacral spondylosis without myelopathy Myalgia, unspecified site Myositis Occlusion and stenosis of unspecified carotid artery without mention of cerebral infarction CARO (obstructive sleep apnea) Osteoarthrosis unspecified wheteher generalized or localized. unspecified site Osteopenia Paroxysmal supraventricular tachycardia ([facility]) Medications: Current Outpatient Medications: ALPRAZolam (Xanax) 0.25 [...] min Stress: No Stress Concern Present (11/25/2022) [place] [employer] - Occupational Stress Questionnaire Feeling of Stress : Only a little Social Connections: Moderately Isolated (11/25/2022) Social Connection and Isolation Panel [NHANES] Frequency of Communication with Friends and Family: More than three times a week Frequency of Social Gatherings with Friends and Family: Once a week Attends Tenriism Services: Never Active Member of Clubs or [...] 9 Alex Alfredo DPM [facility] N[facility]* Other Medical (Routine) - Closed Specialty Diagnoses / Procedures Referred By Aminah beltran Referred To Contact Neurology Diagnoses Numbness of hand Procedures AR OFFICE/OUTPATIENT NEW HIGH MDM 60 MINUTES Kamila Pride NP [address] [facility] [address] [place] [address] Phone: tel: fax: Waqas Dugan DO [address] [place] [address] Phone: tel: fax: Referral ID Status Reason Start Date Expiration Date V isits Requested Visits Authorized [id number] Closed Perform Procedure 03/05/2024 09/01/2024 1 1 [facility] N[facility]* Cardiac Stress Testing (Routine) - Authorized Specialty Diagnoses / Procedures Referred By Contac t Referred To Contact Radiology Diagnoses Lightheadedness Chest discomfort Palpitations Mixed hyperlipidemia Procedures Nuclear Stress Test CHG MYOCARDIAL SPECT MULTIPLE STUDIES Amber Hawley MD [address] [facility] [address] [place] [address] Phone: tel: fax: Referral ID Status Reason Start Date Expiration Date V isits Requested Visits Authorized [id number] Authorized 07/15/2024 07/15/[address] [facility] Work Phone: Reason for visit Narrative* Cardiac Stress Testing (Routine) - Authorized Specialty Diagnoses / Procedures Referred By Contac t Referred To Contact Radiology Diagnoses Lightheadedness Chest discomfort Palpitations Mixed hyperlipidemia Procedures Nuclear Stress Test CHG MYOCARDIAL SPECT MULTIPLE STUDIES Amber Hawley MD [address] [address] Phone: tel: fax: Referral ID Status Reason Start Date Expiration Date V isits Requested Visits Authorized [id number] Authorized 07/15/2024 07/15/[address] [facility] Work Phone: Reason for visit Narrative* CV Imaging (Routine) - Authorized Specialty Diagnoses / Procedures Referred By Contac t Referred To Contact Cardiology Diagnoses Paroxysmal supraventricular tachycardia Abnormal EKG Palpitations Procedures Transthoracic Echo Complete AR ECHO TTHRC R-T 2D W/WOM-MODE COMPL SPEC&COLR D Amber Hawley MD [address] [address] Phone: tel: fax: Referral ID Status Reason Start Date Expiration Date Visits Requested Visits Authorized [id number] Authorized Perform Procedure 07/15/2024 07/15/[address] [facility] Work Phone: Chief Complaint * New problem * Right shoulder pain MP Refer : RT shoulder ultra sound guided injection* Right shoulder pain, here for injection. 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 Summary Purpose Family History No Family [...] DATE CREATED AUTHOR AUTHOR'S ORGANIZ ATION 09/12/2022 [facility] dical Specialist DATE CREATED AUTHOR AUTHOR'S ORGANIZ ATION 10/09/2022 [facility] DATE CREATED AUTHOR AUTHOR'S ORGANIZ ATION 10/09/2022 [facility] DATE CREATED AUTHOR AUTHOR'S ORGANIZ ATION 05/01/2024 [facility] DATE CREATED AUTHOR AUTHOR'S ORGANIZ ATION 07/28/2024 [facility] DATE CREATED AUTHOR AUTHOR'S ORGANIZ ATION 10/19/2024 [facility] dical Specialists EPIC DATE CREATED AUTHOR AUTHOR'S ORGANIZ ATION 11/16/2024 [facility] DATE CREATED AUTHOR AUTHOR'S ORGANIZ ATION 11/22/2024 [facility] DATE CREATED AUTHOR AUTHOR'S ORGANIZ ATION 11/23/2024 [facility] Reason for Visit (unrecogniz ed section and [...] failure. Specialty Diagnoses / Procedures Referred By Aminah beltran Referred To Contact Diagnoses Encounter to establish care with new doctor Procedures ECG 12 Lead Amber Hawley MD [address] [facility] [address] [place] [address] Phone: tel: fax: Referral ID Status Reason Start Date Expiration Date V isits Requested Visits Authorized [id number] Authorized 07/15/2024 07/15/2025 1 1 Reason Comments prolia injection Here for injection b illed and shipped from [facility] Osteoporosis Reason Comments Toenail Care Non dm naiil care Reason Onset Date Comments Med Refill 10/16/2024 Reason Comments Follow-up Mlp, echo results Specialty Diagnoses / Procedures Referred By Aminah beltran Referred To Contact Cardiology Diagnoses Paroxysmal supraventricular tachycardia Procedures Follow Up In Cardiology Amber Hawley MD [address] [facility] [address] [place] [address] Phone: tel: fax: Amber Hawley MD [address] [facility] [address] [place] [address] Phone: tel: fax: Referral ID Status Reason Start Date Expiration Date V isits Requested Visits Authorized [id number] Authorized 07/15/2024 07/15/2025 1 1 Care Teams (unrecognized sec tion and content) Room Service Attendant Relationship Specialty Start Date End Date Roc Steele MD [address] [place] [address] PCP - ACO Reach 09/22/22 Roc Steele MD [address] [place] [address] PCP - General Internal Medicine 09/28/22 Room Service Attendant Relationship Specialty Start Date End Date Roc Steele MD [address] [place] [address] PCP - ACO Reach 09/22/22 Roc Steele MD [address] [place] [address] PCP - General Internal Medicine 09/28/22 Room Service Attendant Relationship Specialty Start Date End Date Roc Steele MD [address] [place] [address] PCP - ACO Reach 09/22/22 Roc Steele MD [address] [place] [address] PCP - General Internal Medicine 09/28/22 Room Service Attendant Relationship Specialty Start Date End Date Roc Steele MD [address] [place] [address] PCP - General Internal Medicine 09/28/22 Roc Steele MD [address] [place] [address] PCP - ACO Reach 08/30/23 Room Service Attendant Relationship Specialty Start Date End Date Roc Steele MD [address] [place], [place] [address] PCP - General Internal Medicine 09/28/22 Roc Steele MD [address] [place] [address] PCP - ACO Reach 08/30/23 Room Service Attendant Relationship Specialty Start Date End Date Roc Steele MD [address] [place] [address] PCP - General Internal Medicine 09/28/22 Roc Steele MD [address] [place] [address] PCP - ACO Reach 08/30/23 Room Service Attendant Relationship Specialty Start Date End Date Roc Steele MD [address] [place] [address] PCP - General Internal Medicine 09/28/22 Roc Steele MD [address] [place] [address] PCP - ACO Reach 08/30/23 Room Service Attendant Relationship Specialty Start Date End Date Roc Steele MD [address] [place] [address] PCP - General Internal Medicine 09/28/22 Roc Steele MD [address] [place] [address] PCP - ACO Reach 08/30/23 Room Service Attendant Relationship Specialty Start Date End Date Roc Steele MD [address] [place] [address] PCP - General Internal Medicine 09/28/22 Roc Steele MD [address] [place] [address] PCP - ACO Reach 08/30/23 Room Service Attendant Relationship Specialty Start Date End Date Roc Steele MD [address] [place] [address] PCP - General Internal Medicine 09/28/22 Roc Steele MD [address] [place] [address] PCP - ACO Reach 08/30/23 Waqas Dugan DO [address] [place] [address] Referring Physician Neurology 03/07/24 Room Service Attendant Relationship Specialty Start Date End Date Roc Steele MD [address] [place] [address] PCP - General Internal Medicine 09/28/22 Roc Steele MD [address] [place] [address] PCP - ACO Reach 08/30/23 Waqas Dugan DO [address] [place] [address] Referring Physician Neurology 03/07/24 Room Service Attendant Relationship Specialty Start Date End Date Roc Steele MD [address] [place] [address] PCP - General Internal Medicine 09/28/22 Roc Steele MD [address] [place] [address] PCP - ACO Reach 08/30/23 Waqas Dugan DO [address] [place] [address] Referring Physician Neurology 03/07/24 Room Service Attendant Relationship Specialty Start Date End Date Roc Steele MD [address] [place] [address] PCP - General Internal Medicine 09/28/22 Roc Steele MD [address] [place] [address] PCP - ACO Reach 08/30/23 Waqas Dugan DO [address] [place] [address], [place] [address] Referring Physician Neurology 03/07/24 Room Service Attendant Relationship Specialty Start Date End Date Roc Steele MD [address] [place] [address] PCP - General Internal Medicine 09/28/22 Roc Steele MD [address] [place] [address] PCP - ACO Reach 08/30/23 Waqas Dugan DO [address] [place] [address] Referring Physician Neurology 03/07/24 Room Service Attendant Relationship Specialty Start Date End Date Roc Steele MD [address] [place] [address] PCP - General Internal Medicine 09/28/22 Roc Steele MD [address] [place] [address] PCP - ACO Reach 08/30/23 Room Service Attendant Relationship Specialty Start Date End Date Roc Steele MD [address] [place] [address] PCP - General Internal Medicine 09/28/22 Roc Steele MD [address] [place] [address] PCP - ACO Reach 08/30/23 Waqas Dugan DO [address] [place] [address] Referring Physician Neurology 03/07/24 Room Service Attendant Relationship Specialty Start Date End Date Roc Steele MD [address] [place] [address] PCP - General Internal Medicine 09/28/22 Roc Steele MD [address] [place] [address] PCP - ACO Reach 08/30/23 Waqas Dugan DO [address] [place] [address] Referring Physician Neurology 03/07/24 Room Service Attendant Relationship Specialty Start Date End Date Roc Steele MD [address] [place] [address] PCP - General Internal Medicine 09/28/22 Roc Steele MD [address] [place] [address] PCP - ACO Reach 08/30/23 Waqas Dugan DO [address] [place] [address] Referring Physician Neurology 03/07/24 Room Service Attendant Relationship Specialty Start Date End Date Roc Steele MD [address] [place] [address] PCP - General Internal Medicine 09/28/22 Roc Steele MD [address] [place] [address] PCP - ACO Reach 08/30/23 Waqas Dugan DO [address] [place] [address], [place] [address] Referring Physician Neurology 03/07/24 Room Service Attendant Relationship Specialty Start Date End Date Roc Steele MD [address] [place] [address] PCP - General Internal Medicine 09/28/22 Roc Steele MD [address] [place] [address] PCP - ACO Reach 08/30/23 Waqas Dugan DO [address] [place] [address] Referring Physician Neurology 03/07/24 Room Service Attendant Relationship Specialty Start Date End Date Roc Steele MD [address] [place] [address] PCP - General Internal Medicine 09/28/22 Roc Steele MD [address] [place] [address] PCP - ACO Reach 08/30/23 Waqas Dugan DO [address] [place] [address] Referring Physician Neurology 03/07/24 Room Service Attendant Relationship Specialty Start Date End Date Roc Steele MD [address] [place] [address] PCP - General Internal Medicine 09/28/22 Roc Steele MD [address] [place] [address] PCP - ACO Reach 08/30/23 Waqas Dugan DO [address] [place] [address], [place] [address] Referring Physician Neurology 03/07/24 Room Service Attendant Relationship Specialty Start Date End Date Roc Steele MD [address] [place] [address] PCP - General Internal Medicine 09/28/22 Roc Steele MD [address] [place] [address] PCP - ACO Reach 08/30/23 Waqas Dugan DO [address] [place] [address] Referring Physician Neurology 03/07/24 Raya Holt, RN Clinical Advocate Family Medicine 06/07/24 Room Service Attendant Relationship Specialty Start Date End Date Roc Steele MD [address] [place] [address] PCP - General Internal Medicine 09/28/22 Roc Steele MD [address] [place] [address] PCP - ACO Reach 08/30/23 Waqas Dugan DO [address] [place] [address] Referring Physician Neurology 03/07/24 Raya Holt, RN Clinical Advocate Family Medicine 06/07/24 Room Service Attendant Relationship Specialty Start Date End Date Roc Steele MD [address] [place] [address] PCP - General Internal Medicine 09/28/22 Roc Steele MD [address] [place] [address] PCP - ACO Reach 08/30/23 Waqas Dugan DO [address] [place] [address] Referring Physician Neurology 03/07/24 Raya Holt, RN Clinical Advocate Family Medicine 06/07/24 Room Service Attendant Relationship Specialty Start Date End Date Roc Steele MD [address] [place] [address] PCP - General Internal Medicine 09/28/22 Roc Steele MD [address] [place] [address] PCP - ACO Reach 08/30/23 Waqas Dugan DO [address] [place] [address] Referring Physician Neurology 03/07/24 Raya Holt RN Clinical Advocate Family Medicine 06/07/24 Room Service Attendant Relationship Specialty Start Date End Date Roc Steele MD [address] [place] [address] PCP - General Internal Medicine 09/28/22 Roc Steele MD [address] [place] [address] PCP - ACO Reach 08/30/23 Waqas Dugan DO [address] [place] [address], [place] [address] Referring Physician Neurology 03/07/24 Raya Holt, CARMEN Clinical Advocate Family Medicine 06/07/24 Room Service Attendant Relationship Specialty Start Date End Date Roc Steele MD [address] [place] [address] PCP - General 10/04/22 Room Service Attendant Relationship Specialty Start Date End Date Roc Steele MD [address] [place] [address] PCP - General Internal Medicine 09/28/22 Roc Steele MD [address] [place] [address] PCP - ACO Reach 08/30/23 Waqas Dugan DO [address] [place] [address], [place] [address] Referring Physician Neurology 03/07/24 Gladis Laird LPN 07/19/24 Room Service Attendant Relationship Specialty Start Date End Date Roc Steele MD [address] [place] [address] PCP - General Internal Medicine 09/28/22 Roc Steele MD [address] [place] [address] PCP - ACO Reach 08/30/23 Waqas Dugan DO [address] [place] [address] Referring Physician Neurology 03/07/24 Gladis Laird LPN 07/19/24 Room Service Attendant Relationship Specialty Start Date End Date Roc Steele MD [address] [place] [address] PCP - General Internal Medicine 09/28/22 Roc Steele MD [address] [place] [address] PCP - ACO Reach 08/30/23 Waqas Dugan DO [address] [place] [address] Referring Physician Neurology 03/07/24 Gladis Laird LPN 07/19/24 Room Service Attendant Relationship Specialty Start Date End Date Roc Steele MD [address] [place] [address] PCP - General Internal Medicine 09/28/22 Roc Steele MD [address] [place] [address] PCP - ACO Reach 08/30/23 Waqas Dugan DO [address] [place] [address] Referring Physician Neurology 03/07/24 Gladis Laird LPN 07/19/24 Room Service Attendant Relationship Specialty Start Date End Date Roc Steele MD [address] [place] [address] PCP - General Internal Medicine 09/28/22 Roc Steele MD [address] [place] [address] PCP - ACO Reach 08/30/23 Waqas Dugan DO [address] [place] [address] Referring Physician Neurology 03/07/24 Gladis Laird LPN 07/19/24 Room Service Attendant Relationship Specialty Start Date End Date Roc Steele MD [address] [place] [address] PCP - General 10/04/22 Room Service Attendant Relationship Specialty Start Date End Date Roc Steele MD [address] [place] [address] PCP - General 10/04/22 Room Service Attendant Relationship Specialty Start Date End Date Roc Steele MD [address] [place] [address] PCP - General 10/04/22 Room Service Attendant Relationship Specialty Start Date End Date Roc Steele MD [address] [place] [address] PCP - General Internal Medicine 09/28/22 Roc Steele MD [address] [place] [address] PCP - ACO Reach 08/30/23 Waqas Dugan DO [address] [place] [address] Referring Physician Neurology 03/07/24 Gladis Laird LPN 07/19/24 Room Service Attendant Relationship Specialty Start Date End Date Roc Steele MD [address] [place] [address] PCP - General Internal Medicine 09/28/22 Roc Steele MD [address] [place] [address] PCP - ACO Reach 08/30/23 Waqas Dugan DO [address] [place] [address] Referring Physician Neurology 03/07/24 Gladis Laird LPN 07/19/24 Room Service Attendant Relationship Specialty Start Date End Date Roc Steele MD [address] [place] [address] PCP - General Internal Medicine 09/28/22 Roc Steele MD [address] [place] [address] PCP - ACO Reach 08/30/23 Waqas Dugan DO [address] [place] [address], [place] [address] Referring Physician Neurology 03/07/24 Gladis Laird LPN [address] [place] [address] 07/19/24 Room Service Attendant Relationship Specialty Start Date End Date Roc Steele MD [address] [place] [address] PCP - General Internal Medicine 09/28/22 Roc Steele MD [address] [place] [address] PCP - ACO Reach 08/30/23 Waqas Dugan DO [address] [place] [address] Referring Physician Neurology 03/07/24 Gladis Laird LPN [address] [place] [address] 07/19/24 Room Service Attendant Relationship Specialty Start Date End Date Roc Steele MD [address] [place] [address] PCP - General Internal Medicine 09/28/22 Roc Steele MD [address] [place] [address] PCP - ACO Reach 08/30/23 Waqas Dugan DO [address] [place] [address] Referring Physician Neurology 03/07/24 Gladis Laird LPN [address] [place] [address] 07/19/24 Room Service Attendant Relationship Specialty Start Date End Date Roc Steele MD [address] [place], [place] [address] PCP - General 10/04/22 FOR RECORDS PERTAINING [...] BE BASED ON THE PRIMARY CLINICAL RECORDS. [facility] [employer] [facility]. provides no warranty or guarantee of the accuracy or completeness of information in this document.
--- NOTE | 2024-12-26 11:43 | CT_ITS ---
The [address] [address] Patient Name: LUMA RIBEIRO MRN: [id number] date: 1945 Sex: F Assigned Patient Location: ER Current Patient Location: ER Accession/Order Number: [id number] Exam Date: 12/26/2024 12:06 Report Date: 12/26/2024 12:58 At the request of: GILBERT BARRAGAN MD Procedure: CT lumbar spine wo con CLINICAL DATA: Patient fell backwards. CT LUMBAR SPINE WITHOUT CONTRAST WITH RECONSTRUCTIONS COMPARISON: MRI lumbar spine 10/01/2024 Spiral axial unenhanced images were obtained through the lumbar spine. Sagittal and coronal reconstructions were reviewed. This CT exam was performed using one or more following dose reduction techniques: Automated exposure control, adjustment of the mA and/or kV according to patient size, or use of iterative reconstruction technique. There is osteopenia. There is slight dextroscoliotic curvature. Alignment is maintained on the sagittal reconstructions. No acute compression fractures are seen. The L4-5 disc space is maintained. There is narrowing of the remaining disc spaces along with vacuum phenomenon. Endplate spurring and facet hypertrophy are identified. There is bilateral L5 spondylolysis. No paraspinal soft tissue abnormalities are identified. There is atherosclerotic plaque involving the aorta and its branches. There are no renal calculi or hydronephrosis in the hkzye-pt-eusc. CT/CT lumbar spine wo con IMPRESSION: OSTEOPENIA, SCOLIOSIS AND DEGENERATIVE CHANGES SIMILAR TO THE RECENT MRI STUDY. L5 SPONDYLOLYSIS. NO ACUTE BONY INJURY. CT PELVIS BONY WITH RECONSTRUCTIONS: CLINICAL HISTORY: 09/02/2022 TECHNIQUE: Spiral images were obtained through the pelvis without contrast. Sagittal and coronal reconstructions were reviewed. This CT exam was performed using one or more following dose reduction techniques: Automated exposure control, adjustment of the mA and/or kV according to patient size, or use of iterative reconstruction technique. The bony structures are osteopenic. There is a right hip prosthesis with associated streak artifact. The hardware, as visualized appears intact and in appropriate position. The bony pelvis, sacrum and proximal imaged femora are intact. There is no dislocation at the hips. The SI joints are maintained. The left hip shows slight axial narrowing. There is also marginal spurring at the periphery of the femoral head and acetabulum. The musculotendinous structures in the [id number]-pu-yyxc show no obvious abnormalities. No hematoma is noted. There is distal colonic diverticular disease. A hiatal hernia is visualized containing fat. IMPRESSION: NO ACUTE BONY INJURY. Impression dictated by: Sushila Zeng M.D. 12/26/2024 12:58 PM Dictation Location: [place] [address] Electronically authenticated by: [id number] Y Date: 12/26/2024 12:58
--- NOTE | 2024-12-26 11:47 | XR_ITS ---
The [address] [address] Patient Name: LUMA RIBEIRO MRN: [id number] date: 1945 Sex: F Assigned Patient Location: ER Current Patient Location: ER Accession/Order Number: [id number] Exam Date: 12/26/2024 12:22 Report Date: 12/26/2024 13:09 At the request of: GILBERT BARRAGAN MD Procedure: XR tibia fibula LT 2V CLINICAL DATA: Patient fell today. Deformity at the ankle. LEFT TIB-FIB - 2 views COMPARISON: None AP and lateral views were obtained. There is osteopenia. Patient has a knee prosthesis with long tibial stem. The hardware appears intact and in appropriate position. There is fracture at the base of the medial malleolus and at the distal fibular metadiaphysis, also described in the ankle report. The remainder of the tibia and fibula are intact. There is no dislocation at the ankle or knee. There are no significant soft tissue findings. XR/XR tibia fibula LT 2V IMPRESSION: BIMALLEOLAR ANKLE FRACTURES. NO OTHER ACUTE BONY INJURY. LEFT ANKLE - 3 views COMPARISON: None Attempted AP, lateral and oblique views were obtained. There is a fracture through the base of the medial malleolus with slight displacement and possible comminution. There is an oblique fracture at the distal fibular metadiaphysis showing mild displacement. No dislocation is seen. The talar dome is intact. Soft tissue swelling is identified, greater medially. IMPRESSION: BIMALLEOLAR ANKLE FRACTURES. LEFT FOOT- 3 views COMPARISON: None AP, attempted lateral and oblique views were obtained. There is osteopenia. There is no evidence of fracture or dislocation. Calcaneal spurs are seen. There are no significant soft tissue abnormalities. IMPRESSION: NO ACUTE BONY INJURY. RIGHT KNEE - 3 views COMPARISON: 12/01/2022 AP, lateral and internal oblique views were obtained. Patient has a knee prosthesis. There is a long tibial stem. The hardware appears intact and unchanged from the prior. No acute fracture or dislocation is noted. There is a trace amount joint fluid. No soft tissue swelling is noted. IMPRESSION: NO ACUTE BONY INJURY. Impression dictated by: Sushila Zeng M.D. 12/26/2024 1:09 PM Dictation Location: [place] [address] Electronically authenticated by: [id number] Y Date: 12/26/2024 13:09
--- NOTE | 2024-12-26 11:47 | XR_ITS ---
The [address] [address] Patient Name: LUMA RIBEIRO MRN: [id number] date: 1945 Sex: F Assigned Patient Location: ER Current Patient Location: ER Accession/Order Number: [id number] Exam Date: 12/26/2024 12:22 Report Date: 12/26/2024 13:09 At the request of: GILBERT BARRAGAN MD Procedure: XR tibia fibula LT 2V CLINICAL DATA: Patient fell today. Deformity at the ankle. LEFT TIB-FIB - 2 views COMPARISON: None AP and lateral views were obtained. There is osteopenia. Patient has a knee prosthesis with long tibial stem. The hardware appears intact and in appropriate position. There is fracture at the base of the medial malleolus and at the distal fibular metadiaphysis, also described in the ankle report. The remainder of the tibia and fibula are intact. There is no dislocation at the ankle or knee. There are no significant soft tissue findings. XR/XR knee RT 3V IMPRESSION: BIMALLEOLAR ANKLE FRACTURES. NO OTHER ACUTE BONY INJURY. LEFT ANKLE - 3 views COMPARISON: None Attempted AP, lateral and oblique views were obtained. There is a fracture through the base of the medial malleolus with slight displacement and possible comminution. There is an oblique fracture at the distal fibular metadiaphysis showing mild displacement. No dislocation is seen. The talar dome is intact. Soft tissue swelling is identified, greater medially. IMPRESSION: BIMALLEOLAR ANKLE FRACTURES. LEFT FOOT- 3 views COMPARISON: None AP, attempted lateral and oblique views were obtained. There is osteopenia. There is no evidence of fracture or dislocation. Calcaneal spurs are seen. There are no significant soft tissue abnormalities. IMPRESSION: NO ACUTE BONY INJURY. RIGHT KNEE - 3 views COMPARISON: 12/01/2022 AP, lateral and internal oblique views were obtained. Patient has a knee prosthesis. There is a long tibial stem. The hardware appears intact and unchanged from the prior. No acute fracture or dislocation is noted. There is a trace amount joint fluid. No soft tissue swelling is noted. IMPRESSION: NO ACUTE BONY INJURY. Impression dictated by: Sushila Zeng M.D. 12/26/2024 1:09 PM Dictation Location: [id number] Electronically authenticated by: [id number] Y Date: 12/26/2024 13:09
--- NOTE | 2024-12-26 11:47 | XR_ITS ---
The [address] [address] Patient Name: LUMA RIBEIRO MRN: [id number] date: 1945 Sex: F Assigned Patient Location: ER Current Patient Location: Accession/Order Number: [id number] Exam Date: 12/26/2024 12:22 Report Date: 12/26/2024 13:09 At the request of: GILBERT BARRAGAN MD Procedure: XR tibia fibula LT 2V CLINICAL DATA: Patient fell today. Deformity at the ankle. LEFT TIB-FIB - 2 views COMPARISON: None AP and lateral views were obtained. There is osteopenia. Patient has a knee prosthesis with long tibial stem. The hardware appears intact and in appropriate position. There is fracture at the base of the medial malleolus and at the distal fibular metadiaphysis, also described in the ankle report. The remainder of the tibia and fibula are intact. There is no dislocation at the ankle or knee. There are no significant soft tissue findings. XR/XR ankle LT min 3V IMPRESSION: BIMALLEOLAR ANKLE FRACTURES. NO OTHER ACUTE BONY INJURY. LEFT ANKLE - 3 views COMPARISON: None Attempted AP, lateral and oblique views were obtained. There is a fracture through the base of the medial malleolus with slight displacement and possible comminution. There is an oblique fracture at the distal fibular metadiaphysis showing mild displacement. No dislocation is seen. The talar dome is intact. Soft tissue swelling is identified, greater medially. IMPRESSION: BIMALLEOLAR ANKLE FRACTURES. LEFT FOOT- 3 views COMPARISON: None AP, attempted lateral and oblique views were obtained. There is osteopenia. There is no evidence of fracture or dislocation. Calcaneal spurs are seen. There are no significant soft tissue abnormalities. IMPRESSION: NO ACUTE BONY INJURY. RIGHT KNEE - 3 views COMPARISON: 12/01/2022 AP, lateral and internal oblique views were obtained. Patient has a knee prosthesis. There is a long tibial stem. The hardware appears intact and unchanged from the prior. No acute fracture or dislocation is noted. There is a trace amount joint fluid. No soft tissue swelling is noted. IMPRESSION: NO ACUTE BONY INJURY. Impression dictated by: Sushila Zeng M.D. 12/26/2024 1:09 PM Dictation Location: [place] [address] Electronically authenticated by: [id number] Y Date: 12/26/2024 13:09
[2024-12-26 12:01] LABS: Hematocrit 41.1 % (36.0-48.0); Hemoglobin 13.6 g/dL (12.0-16.0); Immature Granulocytes Abs Auto 0.02 10^3/uL (0.00-0.03); Immature Granulocytes Pct Auto 0.4 % (0.0-0.5); Lymphocytes Absolute Auto 1.8 10^3/uL (1.2-3.8); Mean Corpuscular HGB Conc 33.1 g/dL (29.9-35.2); Mean Corpuscular Hemoglobin 32.5 pg (26.7-34.0); Mean Corpuscular Volume 98.1 fL (81.0-99.0); Platelet Count 200 10^3/uL (150-450); Red Blood Count 4.19 10^6/uL (4.20-5.40); White Blood Count 5.5 10^3/uL (4.0-11.0)
[2024-12-26 12:18] LABS: Alanine Aminotransferase 21 U/L (14-59); Albumin Globulin Ratio 0.9; Albumin Level 3.3 g/dL (3.4-5.0); Alkaline Phosphatase 89 U/L (46-116); Anion Gap 7.9; Aspartate Amino Transferase 23 U/L (15-37); Blood Urea Nitrogen 19.0 mg/dL (7.0-18.0); Calcium 8.8 mg/dL (8.5-10.1); Carbon Dioxide 32.7 mmol/L (21.0-32.0); Chloride 104 mmol/L (98-107); Estimated GFR (African America 57 (>=60 mL/min/1.73m^2); Estimated GFR (Non-African Ame 47 (>=60 mL/min/1.73m^2); Globulin 3.8 g/dL; Glucose 96 mg/dL (74-106); Potassium 4.6 mmol/L (3.5-5.1); Sodium 140 mmol/L (136-145); Total Protein 7.1 g/dL (6.4-8.2)
[2024-12-26] MEDS: FENTANYL CITRATE/PF 100 MCG/2 ML VIAL 50 MCG IV ×2 (12:43→15:31)
--- NOTE | 2024-12-26 14:23 | ED.FALL1 ---
HPI HPI - Fall General Chief Complaint: Fall Stated Complaint: FALL Time Seen by Provider: 12/26/24 11:42 Source: patient Mode of arrival: ambulance Limitations: no limitations History of Present Illness HPI Narrative: The patient is a 79-year-old female with the past history of hyperlipidemia and hypertension with the diastolic congestive heart failure is coming to the ER after she was brought to us by the EMS, the patient fell while trying to get into the car, apparently her left ankle rolled under her, when the EMS arrived her left ankle with rotated externally and flexed and the the EMS was able to put the splint on the deformity right away There was a good anterior tibial pulse according to the EMS squad The patient complaining of left ankle pain she also was complaining of some headache. Upon arrival the patient did had a headache as well as neck collar was placed by the EMS The patient was awake the whole time she did not lose consciousness she remember falling backward but she is not sure if she hit her head or not Her called EMS The patient was fentanyl twice each dose was 25 mcg before arrival by the EMS Related Data Home Medications ?Medication ?Instructions ?Recorded ?Confirmed hydrocodone 5 mg-acetaminophen 325 1 tab PO Q4H PRN pain 12/01/22 12/26/24 mg tablet simvastatin 10 mg tablet 10 mg PO DAILY 12/01/22 12/26/24 zolpidem 10 mg tablet 10 mg PO DAILY 12/01/22 12/26/24 tizanidine 4 mg tablet 4 mg PO Q8H 05/12/24 12/26/24 alprazolam 0.25 mg tablet 0.25 mg PO DAILY 12/26/24 12/26/24 fexofenadine 180 mg tablet 180 mg PO DAILY 12/26/24 12/26/24 ([facility]ha Allergy) gabapentin 300 mg capsule 300 mg PO BID 12/26/24 12/26/24 magnesium oxide 400 mg (241.3 mg 400 mg PO DAILY 12/26/24 12/26/24 magnesium) tablet meloxicam 15 mg tablet 15 mg PO DAILY 12/26/24 12/26/24 metoprolol succinate 100 mg 100 mg PO DAILY 12/26/24 12/26/24 tablet,extended release 24 hr Previous Rx's ?Medication ?Instructions ?Recorded metoprolol succinate 50 mg 50 mg PO BID #0 tabs 01/14/25 tablet,extended release 24 hr Allergies Allergy/AdvReac Type Severity Reaction Status Date / Time clarithromycin Allergy Severe Rash Verified 11/04/24 10:09 moxifloxacin (From Avelox) Allergy Severe tongue Verified 11/04/24 10:09 swelling Sulfa (Sulfonamide Allergy Unknown Unknown Verified 11/04/24 10:09 Antibiotics) ciprofloxacin (From Cipro) Allergy Rash Verified 11/04/24 10:09 Opioid HPI Opioid Management Most Recent Pain and Opioid Data: Last Pain Scale 8 Today, 12:43 Last Pain Intensity 8 05/18/24, 10:15 Last MAR Pain Assessment Today, 12:43 Last ORT Total Score 0 05/16/24, 20:59 Last ORT Risk Category Low Risk 05/16/24, 20:59 Review of Systems ROS Status of ROS 10 or more systems reviewed and unremarkable except as noted in history and below [facility] Medical History Benign essential hypertension ?I10 - Essential (primary) hypertension (ICD-10) Chronic heart failure with preserved ejection fraction (HFpEF) ?I50.32 - Chronic diastolic (congestive) heart failure (ICD-10) Generalized weakness ?R53.1 - Weakness (ICD-10) Fall ?W19.XXXA - Unspecified fall, initial encounter (ICD-10) Pulmonary edema ?J81.1 - Chronic pulmonary edema (ICD-10) Closed head injury ?S09.90XA - Unspecified injury of head, initial encounter (ICD-10) Contusion of right knee ?S80.01XA - Contusion of right knee, initial encounter (ICD-10) Abrasion of elbow, right ?S50.311A - Abrasion of right elbow, initial encounter (ICD-10) Pneumonia ?J18.9 - Pneumonia, unspecified organism (ICD-10) Acute CHF (congestive heart failure) ?I50.9 - Heart failure, unspecified (ICD-10) Acute kidney injury ?N17.9 - Acute kidney failure, unspecified (ICD-10) Community acquired pneumonia ?J18.9 - Pneumonia, unspecified organism (ICD-10) GERD without esophagitis ?K21.9 - Gastro-esophageal reflux disease without esophagitis (ICD-10) Lump of left breast ?N63.20 - Unspecified lump in the left breast, unspecified quadrant (ICD-10) High cholesterol ?E78.00 - Pure hypercholesterolemia, unspecified (ICD-10) High blood pressure ?I10 - Essential (primary) hypertension (ICD-10) Anxiety ?F41.9 - Anxiety disorder, unspecified (ICD-10) Macular degeneration ?H35.30 - Unspecified macular degeneration (ICD-10) Degenerative disc disease Fibromyalgia ?M79.7 - Fibromyalgia (ICD-10) Right shoulder pain ?M25.511 - Pain in right shoulder (ICD-10) Sleep apnea ?G47.30 - Sleep apnea, unspecified (ICD-10) Surgical History Carpal tunnel syndrome, left ?G56.02 - Carpal tunnel syndrome, left upper limb (ICD-10) History of arthroplasty of right ankle ?Z96.661 - Presence of right artificial ankle joint (ICD-10) History of bilateral knee replacement ?Z96.653 - Presence of artificial knee joint, bilateral (ICD-10) History of right hip replacement ?Z96.641 - Presence of right artificial hip joint (ICD-10) Family History Mother Family history of CHF (congestive heart failure) Sister Family history of CHF (congestive heart failure) Son Family history of cancer Family history of diabetes mellitus Family history of hypertension Social History Within the past year, how often did you have a drink containing alcohol: never Score interpretation: A score less than 3 is consistent with normal alcohol consumption. Smoking status: Never smoker Non-prescribed substance use: denies use Previous occupational history: retired Highest level of school completed/degree received: GED or equivalent Are you now , , , , never or living with a partner: In a typical week, how many times do you talk on the telephone with family, friends, or neighbors: 3 or more times per week How often do you get together with friends or relatives: 3 or more times per week How often do you attend samaritan or evangelical services: never Little interest or pleasure in doing things: not at all Feeling down, depressed, or hopeless: not at all Feel stressed/tense/nervous/anxious/difficulty sleeping: not at all Do you think of yourself as: straight/heterosexual Gender Identity: female Exam Narrative Exam Narrative: Nurses notes and vital signs reviewed and patient is not hypoxic. General: Well-appearing and in no apparent distress. Skin: Warm, dry, no pallor noted. No rash. Head: Normocephalic, atraumatic. Neck: Hard collar in place Eye: Pupils are equal, round and EOMI. No scleral icterus. Ears, Nose, Mouth, and Throat: TM are clear, no nasal mucosal hypertrophy. Oral mucosa is moist, no posterior oropharynx erythema, uvula is mid-line Cardiovascular: Regular Rate and Rhythm without murmur, gallop or rub. Respiratory: No accessory muscle use or respiratory distress. Lungs are clear to auscultation, no wheezing, rales or rhonchi Chest Wall: no tenderness Back: No midline thoracic or lumbar vertebral tenderness. No CVA tenderness Musculoskeletal: There is severe edema of the left ankle in addition to anterior tibial pulses preserved the patient was placed in a short posterior splint by the EMS Right knee abrasion noted in addition to GI: Abdomen is soft, non-distended. Normal bowel sounds. No masses appreciated. No tenderness to palpation. No rebound, guarding, or rigidity noted. Neurological: A&O x4. No cranial nerve dysfunction observed. No truncal ataxia. Moves all extremities. Sensation intact. Psychiatric: Cooperative and interactive. Normal mood and affect. Constitutional Vital Signs, click to edit/add: Last Vital Signs Temp 97.8 F 12/26/24 11:30 Pulse 58 L 12/26/24 13:53 Resp 18 12/26/24 13:53 BP 165/90 H 12/26/24 13:53 Pulse Ox 95 12/26/24 14:37 O2 Del Method Room Air 12/26/24 14:37 O2 Flow Rate 3 12/26/24 12:55 Course Vital Signs Vital signs: Vital Signs Temperature 97.8 F 12/26/24 11:30 Pulse Rate 67 12/26/24 11:30 Respiratory Rate 18 12/26/24 11:30 Blood Pressure 165/119 H 12/26/24 11:30 Pulse Oximetry 95 12/26/24 11:30 Oxygen Delivery Method Room Air 12/26/24 11:30 Temperature 97.8 F 12/26/24 11:30 Pulse Rate 58 L 12/26/24 13:53 Respiratory Rate 18 12/26/24 13:53 Blood Pressure 165/90 H 12/26/24 13:53 Pulse Oximetry 95 12/26/24 14:37 Oxygen Delivery Method Room Air 12/26/24 14:37 Oxygen Delivery Flow Rate 3 12/26/24 12:55 MDM - Fall MDM Narrative Medical decision making narrative: CT head as well as CT cervical spine showed no acute pathology X-ray of the patient ankle as well as x-ray of the tibia and fibula and left foot showed that the patient have bimalleolar fracture The patient also had a right knee x-ray showing no acute pathology The patient received multiple doses of fentanyl 50 mcg to control her pain while she was in the ER The patient had no vascular injury at any time And the patient case was discussed with Dr. Zepeda and initially he discussed with Dr. Hayes from the anesthesia service to make sure that the patient would be able to have the surgery done here in our hospital Eventually the decision was made to admit the patient for surgery done tomorrow morning at 7:30 AM and to keep the patient n.p.o. after midnight The patient case discussed with and he agreed with above-mentioned plan Lab Data Labs: Lab Results 12/26/24 Range/Units 11:49 WBC 5.5 (4.0-11.0) 10^3/uL RBC 4.19 L (4.20-5.40) 10^6/uL Hgb 13.6 (12.0-16.0) g/dL Hct 41.1 (36.0-48.0) % MCV 98.1 (81.0-99.0) fL MCH 32.5 (26.7-34.0) pg MCHC 33.1 (29.9-35.2) g/dL RDW 13.0 (11.0-15.0) % Plt Count 200 (150-450) 10^3/uL MPV 10.3 (9.5-13.5) fL Neut % (Auto) 50.3 (43.0-75.0) % Lymph % (Auto) 33.2 (20.5-60.0) % [place] % (Auto) 13.1 H (1.7-12.0) % Eos % (Auto) 2.5 (0.9-7.0) % Baso % (Auto) 0.5 (0.2-2.0) % Neut # (Auto) 2.8 (1.4-6.5) 10^3/uL Lymph # (Auto) 1.8 (1.2-3.8) 10^3/uL [place] # (Auto) 0.7 (0.3-0.8) 10^3/uL Eos # (Auto) 0.1 (0.0-0.7) 10^3/uL Baso # (Auto) 0.0 (0.0-0.1) 10^3/uL Abs Immat Gran (auto) 0.02 (0.00-0.03) 10^3/uL Imm/Tot Granulo (auto) 0.4 (0.0-0.5) % Sodium 140 (136-145) mmol/L Potassium 4.6 (3.5-5.1) mmol/L Chloride 104 (98-107) mmol/L Carbon Dioxide 32.7 H (21.0-32.0) mmol/L Anion Gap 7.9 BUN 19.0 H (7.0-18.0) mg/dL Creatinine 1.12 H (0.55-1.02) mg/dL Est GFR ( Amer) 57 L (>=60 mL/min/1.73m^2) Est GFR (Non-Af Amer) 47 L (>=60 mL/min/1.73m^2) BUN/Creatinine Ratio 17.0 Glucose 96 (74-106) mg/dL Calcium 8.8 (8.5-10.1) mg/dL Total Bilirubin 0.6 (0.2-1.0) mg/dL AST 23 (15-37) U/L ALT 21 (14-59) U/L Alkaline Phosphatase 89 (46-116) U/L Total Protein 7.1 (6.4-8.2) g/dL Albumin 3.3 L (3.4-5.0) g/dL Globulin 3.8 g/dL Albumin/Globulin Ratio 0.9 Discharge Plan Discharge Chief Complaint: Fall Clinical Impression: Fall, Bimalleolar ankle fracture Patient Disposition: Admitted As Inpatient Time of Disposition Decision: 15:18
--- NOTE | 2024-12-26 15:47 | ECG_ITS ---
The [facility] Test Date: 2024-12-26 Pat Name: LUMA RIBEIRO Department: Room: - Gender: Female Chief Communications Officer: : 1945 Requested By: REJI FORRESTER Order Number: [id number] Reading MD: Nimisha Reid Measurements Intervals [place] Rate: 58 P: 36 ID: [id number] QRS: -26 QRSD: 118 T: -21 QT: 462 QTc: 459 Interpretive Statements 1100 Sinus rhythm 4164 [place] abnormality, possible anterior ischemia 5211 Minimal voltage criteria for LVH, may be normal variant 9150 abnormal ECG Compared to ECG 06/09/2024 17:09:50 Left ventricular hypertrophy now present Right bundle-branch block no longer present Left anterior fascicular block no longer present Possible ischemia still present Electronically Signed On 12-27-2024 13:35:52 EDT by Nimisha Reid
--- NOTE | 2024-12-26 16:44 | PM.CACN ---
History of Present Illness History of Present Illness Consult date: 12/26/24 Requesting physician: Kaden Zepeda Consult reason: pre-op evaluation Chief complaint: FALL Narrative: I was asked to see Mrs. Walker after a fall for pre-operative clearance before ankle surgery. She is 79 and has routine cardiac follow up for diastolic heart failure due to left ventricular hypertrophy and hypertension. Her last evaluation was in August of this year and her EF was normal and LVH was seen on echocardiography. She denies current chest pain or shortness of breath. She did not lose consciousness during fall and attributed it to turning my ankle getting into the car Review of Systems ROS Narrative No chest pain shortness of breath, syncope, dizziness, lightheadedness PFSH [facility] Medical History (Updated 12/26/24 @ 16:54 by WAQAS OSBORN MD) Benign essential hypertension ?I10 - Essential (primary) hypertension (ICD-10) Chronic heart failure with preserved ejection fraction (HFpEF) ?I50.32 - Chronic diastolic (congestive) heart failure (ICD-10) Generalized weakness ?R53.1 - Weakness (ICD-10) Fall ?W19.XXXA - Unspecified fall, initial encounter (ICD-10) Pulmonary edema ?J81.1 - Chronic pulmonary edema (ICD-10) Closed head injury ?S09.90XA - Unspecified injury of head, initial encounter (ICD-10) Contusion of right knee ?S80.01XA - Contusion of right knee, initial encounter (ICD-10) Abrasion of elbow, right ?S50.311A - Abrasion of right elbow, initial encounter (ICD-10) Pneumonia ?J18.9 - Pneumonia, unspecified organism (ICD-10) Acute CHF (congestive heart failure) ?I50.9 - Heart failure, unspecified (ICD-10) Acute kidney injury ?N17.9 - Acute kidney failure, unspecified (ICD-10) Community acquired pneumonia ?J18.9 - Pneumonia, unspecified organism (ICD-10) GERD without esophagitis ?K21.9 - Gastro-esophageal reflux disease without esophagitis (ICD-10) Lump of left breast ?N63.20 - Unspecified lump in the left breast, unspecified quadrant (ICD-10) High cholesterol ?E78.00 - Pure hypercholesterolemia, unspecified (ICD-10) High blood pressure ?I10 - Essential (primary) hypertension (ICD-10) Anxiety ?F41.9 - Anxiety disorder, unspecified (ICD-10) Macular degeneration ?H35.30 - Unspecified macular degeneration (ICD-10) Degenerative disc disease Fibromyalgia ?M79.7 - Fibromyalgia (ICD-10) Right shoulder pain ?M25.511 - Pain in right shoulder (ICD-10) Sleep apnea ?G47.30 - Sleep apnea, unspecified (ICD-10) Surgical History Carpal tunnel syndrome, left ?G56.02 - Carpal tunnel syndrome, left upper limb (ICD-10) History of arthroplasty of right ankle ?Z96.661 - Presence of right artificial ankle joint (ICD-10) History of bilateral knee replacement ?Z96.653 - Presence of artificial knee joint, bilateral (ICD-10) History of right hip replacement ?Z96.641 - Presence of right artificial hip joint (ICD-10) Family History Mother Family history of CHF (congestive heart failure) Sister Family history of CHF (congestive heart failure) Son Family history of cancer Family history of diabetes mellitus Family history of hypertension Social History Within the past year, how often did you have a drink containing alcohol: never Score interpretation: A score less than 3 is consistent with normal alcohol consumption. Smoking status: Never smoker Non-prescribed substance use: denies use Previous occupational history: retired Highest level of school completed/degree received: GED or equivalent Are you now , , , , never or living with a partner: In a typical week, how many times do you talk on the telephone with family, friends, or neighbors: 3 or more times per week How often do you get together with friends or relatives: 3 or more times per week How often do you attend rastafari or catholic services: never Little interest or pleasure in doing things: not at all Feeling down, depressed, or hopeless: not at all Feel stressed/tense/nervous/anxious/difficulty sleeping: not at all Do you think of yourself as: straight/heterosexual Gender Identity: female Meds Home Medications and Allergies Home Medications ?Medication ?Instructions ?Recorded ?Confirmed ?Type hydrocodone 5 mg-acetaminophen 325 1 tab PO Q4H PRN pain 12/01/22 12/26/24 History mg tablet simvastatin 10 mg tablet 10 mg PO DAILY 12/01/22 12/26/24 History zolpidem 10 mg tablet 10 mg PO .QHS 12/01/22 12/26/24 History tizanidine 4 mg tablet 4 mg PO Q8H 05/12/24 12/26/24 History metoprolol succinate 50 mg 50 mg PO BID #0 tabs 05/14/24 12/26/24 Rx tablet,extended release 24 hr alprazolam 0.25 mg tablet 0.25 mg PO DAILY 12/26/24 12/26/24 History fexofenadine 180 mg tablet 180 mg PO DAILY 12/26/24 12/26/24 History (Radha Allergy) gabapentin 300 mg capsule 300 mg PO BID 12/26/24 12/26/24 History magnesium oxide 400 mg (241.3 mg 400 mg PO DAILY 12/26/24 12/26/24 History magnesium) tablet meloxicam 15 mg tablet 15 mg PO DAILY 12/26/24 12/26/24 History metoprolol succinate 100 mg 100 mg PO DAILY 12/26/24 12/26/24 History tablet,extended release 24 hr Allergies Allergy/AdvReac Type Severity Reaction Status Date / Time clarithromycin Allergy Severe Rash Verified 11/04/24 10:09 moxifloxacin (From Avelox) Allergy Severe tongue Verified 11/04/24 10:09 swelling Sulfa (Sulfonamide Allergy Unknown Unknown Verified 11/04/24 10:09 Antibiotics) ciprofloxacin (From Cipro) Allergy Rash Verified 11/04/24 10:09 Exam Constitutional Vital Signs, click to edit/add: Last Vital Signs Temp 97.8 F 12/26/24 11:30 Pulse 57 L 12/26/24 15:38 Resp 12 12/26/24 15:38 BP 182/99 H 12/26/24 15:38 Pulse Ox 100 12/26/24 15:38 O2 Del Method Room Air 12/26/24 14:37 O2 Flow Rate 3 12/26/24 12:55 Documenting provider has reviewed patient's vital signs: yes General appearance: comfortable Orientation/consciousness: Yes oriented to person Other: lying on stretcher comfortably, scrolling through phone HENMT Common normals: normocephalic and head/scalp atraumatic Chest Common normals: inspection of chest normal and palpation of chest normal Respiratory Common normals: normal respiratory effort, no retractions, no use of accessory muscles and clear to auscultation bilaterally Effort & inspection: able to speak in complete sentences Cardio Common normals: no JVD, regular rate, regular rhythm, S1 normal heart sound, S2 normal heart sound, no gallops, no clicks, no murmurs, no rub and peripheral pulses 2+ throughout GI Common normals: soft to palpation Auscultation: normoactive bowel sounds Extremity Other: L ankle externally rotated and in cardboard splint Neuro Common normals: oriented x3 Psych Common normals: mental status grossly normal Results Labs and Meds Lab results: Cardiac Enzymes 12/26/24 Range/Units 11:49 AST 23 (15-37) U/L CBC 12/26/24 Range/Units 11:49 WBC 5.5 (4.0-11.0) 10^3/uL RBC 4.19 L (4.20-5.40) 10^6/uL Hgb 13.6 (12.0-16.0) g/dL Hct 41.1 (36.0-48.0) % Plt Count 200 (150-450) 10^3/uL Neut # (Auto) 2.8 (1.4-6.5) 10^3/uL Lymph # (Auto) 1.8 (1.2-3.8) 10^3/uL [place] # (Auto) 0.7 (0.3-0.8) 10^3/uL Eos # (Auto) 0.1 (0.0-0.7) 10^3/uL Baso # (Auto) 0.0 (0.0-0.1) 10^3/uL Comprehensive Metabolic Panel 12/26/24 Range/Units 11:49 Sodium 140 (136-145) mmol/L Potassium 4.6 (3.5-5.1) mmol/L Chloride 104 (98-107) mmol/L Carbon Dioxide 32.7 H (21.0-32.0) mmol/L BUN 19.0 H (7.0-18.0) mg/dL Creatinine 1.12 H (0.55-1.02) mg/dL Glucose 96 (74-106) mg/dL Calcium 8.8 (8.5-10.1) mg/dL AST 23 (15-37) U/L ALT 21 (14-59) U/L Alkaline Phosphatase 89 (46-116) U/L Total Protein 7.1 (6.4-8.2) g/dL Albumin 3.3 L (3.4-5.0) g/dL Intake and Output 12/26/24 12/26/24 12/26/24 07:59 15:59 23:59 Other: Weight 120.202 kg Patient Weight 12/27/24 07:59 Weight 120.202 kg EKG Interpretation EKG: interpreted by ADIS (I personally reviewed EKG strips She has ) and not changed from: (I personally reviewed EKG from today which demonstrates LVH (aVL) and widened QRS with deep T wave inversions inferolateral leads which is changed from RBBB on prior EKG 06/1024 however, the EKG before that (without RBBB) is substantially the same as today's EKG) Assessment and Plan Assessment and Plan (1) Chronic heart failure with preserved ejection fraction (HFpEF): (2) Abnormal electrocardiogram [ECG] [EKG]: Plan Although Mrs. Walker' EKG is different that EKG showing RBBB on 06/09/24, it is not different that prior EKG earlier that day. With a cardiac evaluation in August of this year demonstrating LVH and preserved EF, and no active symptoms of either chest pain or shortness of breath, I believe that she can proceed with ankle surgery with acceptable cardiovascular risk. Of note, I informed her that her CV risk is not zero, given longstanding hypertension however, there is no further testing that is indicated to address her risk.
--- OUTSIDE RECORDS SUMMARY | 2024-12-26 17:13 | XMS_ITS | CCD ---
Author Organization [facility] CliniSynv Care Team Providers Care [employer] Name Role Phone PelonTrinaew Unavailable Unavailable Unavailable [...] sarah Al, Dr. Taniya Briscoe Attending U Rco Wellington MD Unavailable [phone] Roc Steele MD Primary Care Provider Roc Steele MD Unavailable [phone] Ritchie DO, Christopher Unavailable Mala Sapp Attending UnavailMala Kenney Admitting UnavailRoc Grant Primary Care Unavailable Yanet MORALES, Raya Unavailable Roc Steele MD Primary Care Provider Laird MASH FILTER CLOTH CHANGER, Gladis Unavailable Unavailable Ritchie DO, Christopher Unavailable Ritchie DO, Christopher Unavailable Laird MASH FILTER CLOTH CHANGER, Gladis Unavailable KAMILA PRIDE Attending Unavailable ALEX [...] sources) Clarithromycin; Translations: [clarithromycin] Drug Allergy Unknown [facility] Work Phone: Quinolones (antibiotic) (18 sources) moxifloxacin; Translations: [moxifloxacin] Drug Allergy Anaphylaxis, Unknown [facility] Work Phone: (20 sources) Ciprofloxacin; Translations: [ciprofloxacin] Drug Allergy 3 Unknown [facility] (20 sources) Clarithromycin; Translations: [clarithromycin] Drug Allergy 3 Unknown [facility] Repository (4 sources) moxifloxacin; Translations: [Avelox] Drug Allergy 3 Anaphylaxis [facility] Repository (20 sources) moxifloxacin; Translations: [moxifloxacin] Drug Allergy 3 Anaphylaxis, Angioedema [facility] Work Phone: (1 source) Ciprofloxacin Drug Allergy 3 [facility] Repository (1 source) Sulfonamides (Antibiotic) Drug allergy (disorder) 3 [facility] Repository (20 sources) Sulfanilamide Allergy to substance 3 [facility] (8 sources) Sulfonamides (Antibiotic); Translations: [SULFA (SULFONAMIDE ANTIBIOTICS)] Propensity to adverse reactions 5 Unknown [facility] Work Phone: Medications Current Medications Medication Drug Class(es) Dates Sig (Normalized) Sig (Original) acetaminophen 325 mg / HYDROcodone bitartrate 5 mg oral tablet (20 sources) Opioid Agonist Start: 02-29-2024 End: 11-17-2024 take 1 tablet by mouth every four hours for pain HYDROcodone-acetam inophen (Hay) 5-325 MG tablet Indications: Lumbosacral spondylosis without myelopathy Take 1 tablet by mouth every 4 (four) hours if needed for moderate pain or severe pain 180 tablet 10/18/2024 11/17/2024 Active [id number] 200 actuat albuterol 0.09 mg/actuat metered dose [...] day at the same time. 0 Active gvizpjhuiwln-Mv-ndet-mineral s tablet (1 source) take 1 tablet by mouth once daily ykimmvqzneap-Kq-ifjh-minerals tablet Take 1 tablet by mouth once [...] 08-01-2024 Chronic Other aftercare (1 source) Other nursing home (current) drug therapy; Translations: [OTH ELECTROTYPER APPRENTICE CURRENT DRUG THERAPY] Onset: 3 Episodic Other [...] [facility] [place] [address] Magnetic Resonance Report Signed Patient: LUMA RIBEIRO MR#: [id number] : 1945 Acct:[id number] Age/Sex: 78 / F ADM Date: 10/01/24 Loc: MRI Attending Dr: Daron Sanchez M.D. Ordering Physician: Daron Sanchez M.D. Date of Service: 10/01/24 Procedure(s): MR lumbar spine wo con Accession Number(s): [id number] cc: ROC STEELE ; Daron Sanchez M.D. [facility] [place] [address] Patient Name: LUMA RIBEIRO MRN: [id number] date: 1945 Sex: F Assigned Patient Location: MRI Current Patient Location: MRI Accession/Order Number: [id number] Exam Date: 10/01/2024 14:28 Report Date: 10/01/2024 [...] Bach M.D. 10/01/2024 2:34 PM Dictation Location: [place] [address] Electronically authenticated by: [id number] Y Date: 10/01/2024 14:34 Dictated By: Srinivasa Bach M.D. Signed By: 10/01/24 1437 DD/ 1434 TD/TT: Crawler Tractor Operator: [facility] Radiology, Radiologi MD noemy - 10/01/2024 [place] [address] Magnetic Resonance Report Signed Patient: LUMA RIBEIRO MR#: [id number] : 1945 Acct:[id number] Age/Sex: 78 / F ADM Date: 10/01/24 Loc: MRI Attending Dr: Daron Sanchez M.D. Ordering Physician: Daron Sanchez M.D. Date of Service: 10/01/24 Procedure(s): MR lumbar spine wo con Accession Number(s): [id number] cc: ROC STEELE ; Daron Sanchez M.D. [facility] [place] [address] Patient Name: LUMA RIBEIRO MRN: [facility]:[id number] date: 1945 Sex: F Assigned Patient Location: MRI Current Patient Location: MRI Accession/Order Number: [id number] Exam Date: 10/01/2024 14:28 Report Date: 10/01/2024 [...] Bach M.D. 10/01/2024 2:34 PM Dictation Location: [place] [address] Electronically authenticated by: [id number] Y Date: 10/01/2024 14:34 Dictated By: Srinivasa Bach M.D. Signed By: 10/01/24 1437 DD/ 1434 TD/TT: Crawler Tractor Operator: [facility] Radiology Study observation (narrative) [facility] MR LUMBAR SPINE WO Jennifer crawford By: Radiologist Radiology on 10-01-2024 [facility] [employer] Work Phone: NUCLEAR STRESS TESTon 2024 NUCLEAR STRESS TEST Interpreted By: David Walls, and Jett Inman STUDY: MYOCARDIAL PERFUSION STRESS TEST WITH LEXISCAN Performing facility: [facility], [address] [place] [address], [address], [address] Provider: Amber Hawley MD, [facility] PCP: Dr. Madelyn Steele Supervising provider: David Castle MD, [facility] INDICATION: Signs/Symptoms:abn ekg, cp, dizziness, m hld. ,R42 Dizziness and giddiness,R07.89 Other chest pain,R00.2 Palpitations,E78.2 Mixed hyperlipidemia HISTORY: Gender: F; Age: 78 y/o ; Height: HT 162.6 cm cm; Weight: WT 122.018 kg kg. Abnormal EKG; High Cholesterol; HTN; Palpitations; Chest Pain; Denies smoking. COMPARISON: No comparison. ACCESSION NUMBER(S): [id number] ORDERING CLINICIAN: AMBER HAWLEY TECHNIQUE: TWO DAY [...] David Castle 09/19/2024 3:00 PM Dictation workstation: [id number] [facility] TRANSTHORACIC ECHO (TTE) COM PLETEon 09-18-2024 TRANSTHORACIC ECHO (TTE) COMPLETE [address], [address] [place] [address] TRANSTHORACIC ECHOCARDIOGRAM REPORT Patient Name: LUMA Deal Physician: [id number] David Castle MD, [facility] Study Date: 09/18/2024 Ordering Provider: [id number] AMBER HAWLEY MRN/PID: [id number] Fellow: Nurse: Date of /Age: 7 1945 Lead Handler: Viry ely RDCS, RVT Gender Assigned at F Additional Staff: : Height: 162.56 cm Admit Date: Weight: 122.02 kg Admission Status: Outpatient BSA / BMI: 2.22 m2 / 46.17 Department Location: [facility]/m2 [place] Blood Pressure: 124 /86 mmHg Study Type: TRANSTHORACIC ECHO (TTE) COMPLETE Diagnosis/ICD: Supraventricular tachycardia-I47.1; Abnormal electrocardiogram [ECG] [EKG]-R94.31; Palpitations-R00.2 Indication: Edema, HTN, Hyperlipidemia, Carotid Stenosis, CARO, CKD-Stage III, Morbid Obesity CPT Codes: Echo Complete w Full Doppler-06921 Study Detail: The following Echo studies were [...] 338.04 c (more content not included)... Normal [facility] US Heart TransthoracicOrdere d By: David Castle on 09-18-2024 Aortic Valve Area by Continuity of Peak Velocity 2.65 cm2 [facility] Work Phone: 00 Aortic Valve Area by Continuity of VTI 1.93 cm2 [facility] Work Phone: 00 AV mn grad 7 mmHg [facility] Work Phone: AV pk grad 13 mmHg [facility] Work Phone: AV pk malinda 1.81 m/s [facility] Work Phone: LA vol index A/L 44.1 ml/m2 [facility] Work Phone: 00 LV A4C EF 42.7 [facility] Work Phone: 00 LV Biplane EF 36 % [facility] Work Phone: LV EF 63 % [facility] Work Phone: LVIDd 4.66 cm [facility] Work Phone: [phone] LVOT diam 2.27 cm [facility] Work Phone: MV avg E/e' ratio 26.81 [facility] Work Phone: MV E/A ratio 0.79 [facility] Work Phone: RV free wall pk S' 15.98 cm/s [facility] Work Phone: [facility] Work Phone: US Heart Transthoracicon [facility] [address] [place] [address], [address], [place] [address] TRANSTHORACIC ECHOCARDIOGRAM REPORT Patient Name: LUMA Deal Physician: [id number] David Castle MD, [facility] Study Date: 09/18/2024 Ordering Provider: [id number] AMBER HAWLEY MRN/PID: [id number] Fellow: Nurse: Date of /Age: 7 1945 Lead Handler: Viry ely RDCS, RVT Gender Assigned at F Additional Staff: : Height: 162.56 cm Admit Date: Weight: 122.02 kg Admission Status: Outpatient BSA / BMI: 2.22 m2 / 46.17 Department Location: [facility] Heart kg/m2 [facility] Blood Pressure: 124 /86 mmHg Study Type: TRANSTHORACIC ECHO (TTE) COMPLETE Diagnosis/ICD: Supraventricular tachycardia-I47.1; Abnormal electrocardiogram [ECG] [EKG]-R94.31; Palpitations-R00.2 Indication: Edema, HTN, Hyperlipidemia, Carotid Stenosis, CARO, CKD-Stage III, Morbid Obesity CPT Codes: Echo Complete w Full Doppler-00456 Study Detail: The following Echo studies were [...] included)... David Mortensen M D - 09/18/[address], Suite [facility], [place] [address] TRANSTHORACIC ECHOCARDIOGRAM REPORT Patient Name: LUMA Deal Physician: [id number] David Castle MD, [facility] Study Date: 09/18/2024 Ordering Provider: [id number] AMBER HAWLEY MRN/PID: [id number] Fellow: Nurse: Date of /Age: 7 1945 Lead Handler: Viry ely RDCS, RVT Gender Assigned at F Additional Staff: : Height: 162.56 cm Admit Date: Weight: 122.02 kg Admission Status: Outpatient BSA / BMI: 2.22 m2 / 46.17 Department Location: [facility]/[address] Blood Pressure: 124 /86 mmHg Study Type: TRANSTHORACIC ECHO (TTE) COMPLETE Diagnosis/ICD: Supraventricular tachycardia-I47.1; Abnormal electrocardiogram [ECG] [EKG]-R94.31; Palpitations-R00.2 Indication: Edema, HTN, Hyperlipidemia, Carotid Stenosis, CARO, CKD-Stage III, Morbid Obesity CPT Codes: Echo Complete w Full Doppler-79434 Study Detail: The following Echo studies were [...] Index: 0.48 AORTI (more content not included)... [facility] Work Phone: LIPID PANEL, STANDARD 06-30 Cholesterol [Mass/Vol] 153 mg/dL Normal <200 [facility] Comment on above: Order Comment: COLLE CTION KIT GIVEN TO PATIENT. PATIENT ADVISED TO RETURN. Performed By: #### 7 600 #### [facility] [address], [address] [place] [address] Manager Quality Systems: Bryce Larsen MD Cholesterol in HDL [Mass/Vol] 49 mg/dL Low > OR = 50 [facility] Comment on above: Order Comment: COLLE CTION KIT GIVEN TO PATIENT. PATIENT ADVISED TO RETURN. Performed By: #### 7 600 #### [facility] [address], [address] [place] [address] Manager Quality Systems: Bryce Larsen MD Cholesterol in LDL [Mass/Vol] [...] LDL-C. Mike JURADO et al. MARGO. 2013;310(19): 4560-1540 (http://education.[employer].Skytap/faq/RMI230) Performed By: #### 7 600 #### [facility] [address], [address] [place] [address] Manager Quality Systems: Bryce Larsen MD Cholesterol.total/Cho lesterol in HDL [Mass ratio] 3.1 {ratio} Normal <5.0 [facility] Comment on above: Order Comment: COLLE CTION KIT GIVEN TO PATIENT. PATIENT ADVISED TO RETURN. Performed By: #### 7 600 #### [facility] [address], [address] [place] [address] Manager Quality Systems: Bryce Larsen MD NON HDL CHOLESTEROL 104 [...] By: #### 7 600 #### [facility] [address], [address] [place] [address] Manager Quality Systems: Bryce Larsen MD Triglyceride [Mass/Vol] 121 mg/dL Normal <150 [facility] Comment on above: Order Comment: COLLE CTION KIT GIVEN TO PATIENT. PATIENT ADVISED TO RETURN. Performed By: #### 7 600 #### [facility] [address], [address] [place] [address] Manager Quality Systems: Bryce Larsen MD DEXA BONE DENSITYon 07-27-19 [...] Available MM TOMOSYNTHESIS SCREENING B Ion 07-18-[address] [address] Mammography Report Signed Patient: LUMA RIBEIRO MR#: [id number] : 1945 Acct:[id number] Age/Sex: 78 / F ADM Date: 07/17/24 Loc: MAMMO Attending Dr: ROC STEELE Ordering Physician: ROC STEELE Results: Date of Service: 07/17/24 Follow Up: Procedure(s): MM tomosynthesis screening BI Accession Number(s): [id number] cc: USAMAMARIKAROC Patient Name: LUMA RIBEIRO MR#: [id number] : 1945 Exam Date: 07/17/2024 Ordering Doctor: [...] breast cancer at age 61. LOCATION: [facility] BREAST COMPOSITION: There are scattered areas of [...] Signed By: 07/18/24 1620 DD/ 1619 TD/TT: Crawler Tractor Operator: [facility] RadiologyJodieogmekhi salguero MD - 07/18/2024 [facility] [place] [id number] Mammography Report Signed Patient: LUMA RIBEIRO MR#: [id number] : 1945 Acct:[id number] Age/Sex: 78 / F ADM Date: 07/17/24 Loc: MAMMO Attending Dr: ROC STEELE Ordering Physician: ROC STEELE Results: Date of Service: 07/17/24 Follow Up: Procedure(s): MM tomosynthesis screening BI Accession Number(s): [id number] cc: ROC STEELE Patient Name: LUMA RIBEIRO MR#: [id number] : 1945 Exam Date: 07/17/2024 Ordering Doctor: [...] breast cancer at age 61. LOCATION: [facility] BREAST COMPOSITION: There are scattered areas of [...] Signed By: 07/18/24 1620 DD/ 1619 TD/TT: Crawler Tractor Operator: [facility] Study observation (narrative) [facility] [employer] MM TOMOSYNTHESIS SCREENING B IOrdered By: Radiologist Radiology on 07-18-2024 [employer] Work Phone: ECG 12 Leadon 07-15-2024 [facility] Work Phone: [facility] Work Phone: Laboratory - Hematology and Cell countson 07-11-2024 HbA1c (Bld) [Mass fraction] 6.1 % [facility] No Panel Informationon 07-11 [facility] XR HIP 2 OR 3 [...] #### 1 0231, 622 #### [facility] [place] [address] Manager Quality Systems: Bryce Larsen MD Albumin/Globulin [Mass ratio] 1.7 {ratio} Normal 1.0-2.5 [facility] Comment on above: Performed By: #### 1 230, 622 #### [facility] [place] [address] Manager Quality Systems: Bryce Larsen MD ALP [Catalytic activity/Vol] 99 U/L Normal 37-153 [facility] Comment on above: Performed By: #### 1 230, 622 #### [facility] [place] [address] Manager Quality Systems: Bryce Larsen MD ALT [Catalytic activity/Vol] 8 U/L Normal 6-29 [facility] Comment on above: Performed By: #### 1 230, 622 #### [facility] [place] [address] Manager Quality Systems: Bryce Larsen MD AST [Catalytic activity/Vol] 19 U/L Normal 10-35 [facility] Comment on above: Performed By: #### 1 230, 622 #### [facility] of [place] [address] Manager Quality Systems: Bryce Larsen MD Bilirubin [Mass/Vol] 0.6 mg/dL Normal 0.2-1.2 [facility] Comment on above: Performed By: #### 1 230, 622 #### [facility] [place] [address] Manager Quality Systems: Bryce Larsen MD Calcium [Mass/Vol] 8.9 mg/dL Normal 8.6-10.4 [facility] Comment on above: Performed By: #### 1 230, 622 #### [facility] [place] [address] Manager Quality Systems: Bryce Larsen MD Chloride [Moles/Vol] 104 mmol/L Normal 98-110 [facility] Comment on above: Performed By: #### 1 230, 622 #### [facility] [place] [address] Manager Quality Systems: Bryce Larsen MD CO2 [Moles/Vol] 27 mmol/L Normal 20-32 [facility] Comment on above: Performed By: #### 1 230, 622 #### [facility] [place] [address] Manager Quality Systems: Bryce Larsen MD Creatinine [Mass/Vol] 1.11 mg/dL High 0.60-1.[address] [facility] Comment on above: Performed By: #### 1 230, 622 #### [facility] [place] [address] Manager Quality Systems: Bryce Larsen MD GFR/1.73 sq M.predicted among non-blacks MDRD (S/P/Bld) [Vol rate/Area] 51 mL/min/{1.73_m2} Low > OR = 60 [facility] Comment on above: Performed By: #### 1 230, 622 #### [facility] of [place] [id number] Manager Quality Systems: Bryce Larsen MD Globulin (S) [Mass/Vol] 2.3 g/dL Normal 1.9-3.7 [facility] Comment on above: Performed By: #### 1 230, 622 #### [facility] [place] [address] Manager Quality Systems: Bryce Larsen MD Glucose [Mass/Vol] 145 mg/dL High 65-139 [facility] Comment on above: Result Comment: Non-fasting reference interval For someone without known diabetes, a glucose value >125 mg/dL indicates that they may have diabetes and this should be confirmed with a follow-up test. Performed By: #### 1 230, 622 #### [facility] [place] [address] Manager Quality Systems: Bryce Larsen MD Potassium [Moles/Vol] 4.2 mmol/L Normal 3.5-5.[address] [facility] [address] [facility] Comment on above: Performed By: #### 1 230, 622 #### [facility] [place] [address] Manager Quality Systems: Bryce Larsen MD Protein [Mass/Vol] 6.3 g/dL Normal 6.1-8.1 [facility] Comment on above: Performed By: #### 1 230, 622 #### [facility] [place] [address] Manager Quality Systems: Bryce Larsen MD Sodium [Moles/Vol] 138 mmol/L Normal 135-146 [facility] Comment on above: Performed By: #### 1 230, 622 #### [facility] [place] [address] Manager Quality Systems: Bryce Larsen MD Urea nitrogen [Mass/Vol] 19 mg/dL Normal 7-25 [facility] Comment on above: Performed By: #### 1 230, 622 #### [facility] [place] [address] Manager Quality Systems: Bryce Larsen MD Urea nitrogen/Creatinine [Mass ratio] 17 mg/mg Normal - [facility] Comment on above: Performed By: #### 1 0231, 622 #### [facility] [place] [address] Manager Quality Systems: Bryce Larsen MD MAGNESIUMon 07-04-2024 Magnesium [Mass/Vol] 2.0 mg/dL Normal 1.5-2.5 [facility] Comment on above: Order Comment: FASTI NG:NO FASTING: NO Performed By: #### 1 0231, 622 #### [facility] [address], [address] [place] [address] Manager Quality Systems: Bryce Larsen MD B TYPE NATRIURETIC PEPTIDE ( BNP)on 06-12-2024 Natriuretic peptide B (Bld) [Mass/Vol] 108 pg/mL High <100 [facility] Comment on above: Result Comment: BNP levels increase with age in the general population with the highest values seen in individuals greater than 75 years of age. Reference: J. Am. Vladislav. Cardiol. 2002; 40:976-982. Performed By: #### 3 7386 #### [facility] [place] [address] Manager Quality Systems: Bryce Larsen MD COMPREHENSIVE METABOLIC PANE Kit 05-23-2024 Albumin [Mass/Vol] 3.6 g/dL Normal 3.6-5.1 [facility] Comment on above: Performed By: #### 6 , 23818 #### [facility] [address], [address] [place] [address] Manager Quality Systems: Bryce Larsen MD Albumin/Globulin [Mass ratio] 1.3 {ratio} Normal 1.0-2.5 [facility] Comment on above: Performed By: #### 6 , 78243 #### [facility] [address], [address] [place] [address] Manager Quality Systems: Bryce Larsen MD ALP [Catalytic activity/Vol] 87 U/L Normal 37-153 [facility] Comment on above: Performed By: #### 6 22, 65928 #### [facility] of [address], [address] [place] [address] Manager Quality Systems: Bryce Larsen MD ALT [Catalytic activity/Vol] 15 U/L Normal 6-29 [facility] Comment on above: Performed By: #### 6 22, 45341 #### [facility] [place] [address] Manager Quality Systems: Bryce Larsen MD AST [Catalytic activity/Vol] 31 U/L Normal 10-35 [facility] Comment on above: Performed By: #### 6 22, 55962 #### [facility] [place] [address] Manager Quality Systems: Bryce Larsen MD Bilirubin [Mass/Vol] 0.5 mg/dL Normal 0.2-1.2 [facility] Comment on above: Performed By: #### 6 , 95238 #### [facility] [place] [address] Manager Quality Systems: Bryce Larsen MD Calcium [Mass/Vol] 9.1 mg/dL Normal 8.6-10.4 [facility] Comment on above: Performed By: #### 6 22, 66046 #### [facility] [place] [address] Manager Quality Systems: Bryce Larsen MD Chloride [Moles/Vol] 103 mmol/L Normal 98-110 [facility] Comment on above: Performed By: #### 6 22, 45333 #### [facility] [place] [address] Manager Quality Systems: Bryce Larsen MD CO2 [Moles/Vol] 27 mmol/L Normal 20-32 [facility] Comment on above: Performed By: #### 6 22, 77689 #### [facility] [place] [address] Manager Quality Systems: Bryce Larsen MD Creatinine [Mass/Vol] 1.04 mg/dL High 0.60-1.[address] [facility] Comment on above: Performed By: #### 6 , 77593 #### [facility] [place] [address] Manager Quality Systems: Bryce Larsen MD GFR/1.73 sq M.predicted among non-blacks MDRD (S/P/Bld) [Vol rate/Area] 55 mL/min/{1.73_m2} Low > OR = 60 [facility] Comment on above: Performed By: #### 6 , 00972 #### [facility] [place] [address] Manager Quality Systems: Bryce Larsen MD Globulin (S) [Mass/Vol] 2.7 g/dL Normal 1.9-3.7 [facility] Comment on above: Performed By: #### 6 , 15519 #### [facility] [place] [address] Manager Quality Systems: Bryce Larsen MD Glucose [Mass/Vol] 73 mg/dL Normal 65-139 [facility] Comment on above: Result Comment: Non-fasting reference interval Performed By: #### 6 22, 67371 #### [facility] [place] [address] Manager Quality Systems: Bryce Larsen MD Potassium [Moles/Vol] 4.7 mmol/L Normal 3.5-5.[address] [facility] Comment on above: Performed By: #### 6 , 71514 #### [facility] [place] [address] Manager Quality Systems: Bryce Larsen MD Protein [Mass/Vol] 6.3 g/dL Normal 6.1-8.1 [facility] Comment on above: Performed By: #### 6 , 12243 #### [facility] [place] [address] Manager Quality Systems: Bryce Larsen MD Sodium [Moles/Vol] 137 mmol/L Normal 135-146 [facility] Comment on above: Performed By: #### 6 22, 36014 #### [facility] [address], [address] [place] [address] Manager Quality Systems: Bryce Larsen MD Urea nitrogen [Mass/Vol] 15 mg/dL Normal 7-25 [facility] Comment on above: Performed By: #### 6 22, 98889 #### [facility] [address], [address] [place] [address] Manager Quality Systems: Bryce Larsen MD Urea nitrogen/Creatinine [Mass ratio] 14 mg/mg Normal 6- [facility] Comment on above: Performed By: #### 6 22, 38132 #### [facility] [address], [address] [place] [address] Manager Quality Systems: Bryce Larsen MD MAGNESIUMon 05-23-2024 Magnesium [Mass/Vol] 1.9 mg/dL Normal 1.5-2.5 [facility] Comment on above: Order Comment: FASTI NG:NO FASTING: NO Performed By: #### 6 22, 30676 #### [facility] [address], [address] [place] [address] Manager Quality Systems: Bryce Larsen MD ALL BASIC METABOLIC PANELon 05-16-2024 Anion gap [Moles/Vol] 12 mmol/L [facility] Calcium [Mass/Vol] 9 mg/dL 8.5 - 10. 1 mg/dL [facility] Chloride [Moles/Vol] 98 mmol/L 98 - 10 7 mmol/L [facility] CO2 [Moles/Vol] 29.6 mmol/L 21.0 - 32.0 mmol/L [facility] Creatinine [Mass/Vol] 1.42 mg/dL High 0.55 - 1.02 mg/dL [facility] GFR/1.73 sq M.predicted CKD-EPI (S/P/Bld) [Vol rate/Area] 43 Low >=60 mL/min/1.7 3m 2 [facility] Glucose [Mass/Vol] 74 mg/dL 74 - 106 mg/dL [facility] Interpretation and review of laboratory results Abnormal [facility] Potassium [Moles/Vol] 3.6 mmol/L 3.5 - 5.1 mmol/L [facility] Sodium [Moles/Vol] 136 mmol/L 136 - 145 mmol/L [facility] EGFR-NON AF ANDORRAN 36 Low >=60 mL/min/1.7 3m 2 [facility] Urea nitrogen [Mass/Vol] 36 mg/dL High 7.0 - 18.0 mg/dL [facility] Urea nitrogen/Creatinine [Mass ratio] 25.4 mg/mg [facility]V*on 04-29-2024 XR chest 2V* [facility] [place] [facility] [address] [place] [address] XRay Report Signed Patient: Luma Ribeiro MR#: [id number] : 1945 Acct:[id number] Age/Sex: 78 / F ADM Date: 04/29/24 Loc: XDUCLY Room: Type: [facility] 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 SELF DEFENSE INSTRUCTOR Copies to: Mala Sapp APRN Ordering Provider: [...] R Christopher M.D.04/29/2024 4:00 PM Dictation Location: [place] [id number] Transcribed By: ALEXEY 04/29/24 1600 Dictated By: Jose R Christopher DO 04/29/24 1559 Signed By: 04/29/24 1600 Normal [facility] XR CHEST 2 VIEWSon [...] de hand and wrist EMG 1 Extremeityon [facility] 7-8 Nerveson 03-07-2024 [facility] Established Visit (Orthopaed ic Surgery)on [...] Complaint RT shoulder Ongoing issue X rays PUBLIC HEALTH DIETITIAN today History of Present Illness New Patient [...] normal pronation supination wrist flexion extension and independent film maker strength. Distal pulses and sensation are intact. Limited forward flexion to about 25 degrees lateral abduction to about 15 unable to perform any external rotation but internal he can get to the small of her back. Her exam does not allow for much of a true Neer's Shelby or Shoup's test. Diagnostics: See dictated report from today, previous outside CT scan report of the humerus reviewed, and is available in the [facility] chart. 1 Procedure: None Assessment: Chronic [...] the patient's CT scan report reviewed in [facility] chart Other 1 than the anterior [...] grammatical areas may persist related to the [employer] software (more content not included)... Normal [facility] 10-04-2022 XR Shoulder 2 Views [facility]: SHOULDER, CMPLT, MIN 2 VIEWS on 10-04-2022 SHOULDER, CMPLT, MIN 2 VIEWS Patient Name: LUMA RIBEIRO STUDY: SHOULDER, CMPLT, MIN 2 VIEWS; Right; 10/04/2022 1:49 pm INDICATION: pain M25.519: Shoulder pain. ACCESSION NUMBER(S): [id number] ORDERING CLINICIAN: TANIYA AL FINDINGS: Multiple views [...] Electronically signed by: TANIYA AL MD Normal [facility] CT HUMERUS RIGHT W/O CONTRAS Ton [...] by Pernell Wiley on 09/12/2022 1127 Normal [facility] XR Chest 2 Views*on 09-13-19 [...] by Pernell Wiley on 09/12/2022 1101 Normal [facility] XR CHEST 2 Von 09-05-2022 [...] ISAEL HANSEN Date: 2022-09-05 15:11 Normal [facility] XR KUB 1 VIEWon 09-05-2022 XR KUB [...] by: ISAEL HANSEN Date: 2022-09-05 15:10 Normal [facility] AMYLASEon 09-03-2022 Amylase [Catalytic activity/Vol] 34 U/L Normal 25-115 [facility] Comment on above: Performed By: #### L IPA, CMP, CMADM, BNP, GRACIELA #### [facility] [address] [place] [address] Dr. Yonny Meza BNPon 09-03-2022 Natriuretic peptide B (Bld) [Mass/Vol] 241.0 pg/mL Normal <=1,800.0 [facility] Comment on above: Performed By: #### L IPA, CMP, CMADM, BNP, GRACIELA #### [facility] [address] [place] [address] Dr. Yonny Meza CARDIAC SRINIVASA ADMITon 023 CK [Catalytic activity/Vol] 154 U/L Normal 26-192 [facility] Comment on above: Performed By: #### L IPA, CMP, CMADM, BNP, GRACIELA #### [facility] [address] [place] [address] [address] Yonny Meza CK.MB [Mass/Vol] 1.42 ng/mL Normal <=3.60 [facility] Comment on above: Performed By: #### L IPA, CMP, CMADM, BNP, GRACIELA #### [facility] [address] [place] [address] Dr. Yonny Meza HSTROP 13.9 pg/mL Normal 4.0-51.3 [facility] Comment on above: Result Comment: CUT- OFF POINTS HAVE BEEN ESTABLISHED BASED ON THE FOURTH UNIVERSAL DEFINITIONS OF MYOCARDIAL INFARCTION. THE UPPER REFERENCE LIMIT (URL) OF TROPONIN, DEFINED THE 99TH PERCENTILE OF cTnI DISTRIBUTION IN A REFERENCE POPULATION, HAS BEEN CONFIRMED THE DECISION THRESHOLD FOR MO DIAGNOSIS. Performed By: #### L IPA, CMP, CMADM, BNP, GRACIELA #### [facility] [address] [place] [address] Dr. Yonny Meza DAIRON 63 ng/mL Normal 9-82 [facility] Comment on above: Performed By: #### L IPA, CMP, CMADM, BNP, GRACIELA #### [facility] [address] [place] [address] Dr. Yonny Meza CBC AUTO DIFFon 09-03-2022 BASO # 0.0 103/ul Normal 0.0-0.1 [facility] Comment on above: Performed By: #### L IPA, CMP, CMADM, BNP, GRACIELA #### [facility] [address] [place] [address] Dr. Yonny Meza Basophils/100 WBC (Bld) 0.4 % Normal 0.2-2.0 [facility] Comment on above: Performed By: #### L IPA, CMP, CMADM, BNP, GRACIELA #### [facility] [address] [place] [address] Dr. Yonny Meza EO # 0.1 103/ul Normal 0.0-0.7 [facility] Comment on above: Performed By: #### L IPA, CMP, CMADM, BNP, GRACIELA #### [facility] [address] [place] [address] Dr. Yonny Meza Eosinophils/100 WBC (Bld) 1.6 % Normal 0.9-7.0 [facility] Comment on above: Performed By: #### L IPA, CMP, CMADM, BNP, GRACIELA #### [facility] [address] [place] [address] Dr. Yonny Meza Erythrocyte distribution width (RBC) [Ratio] 12.6 % Normal 11.0-15.0 [facility] Comment on above: Performed By: #### L IPA, CMP, CMADM, BNP, GRACIELA #### [facility] [address] [place] [address] Dr. Yonny Meza Hematocrit (Bld) [Volume fraction] 38.9 % Normal 36.0-48.0 [facility] Comment on above: Performed By: #### L IPA, CMP, CMADM, BNP, GRACIELA #### [facility] [address] [place] [address] Dr. Yonny Meza Hemoglobin (Bld) [Mass/Vol] 13.0 g/dL Normal 12.0-16.0 [facility] Comment on above: Performed By: #### L IPA, CMP, CMADM, BNP, GRACIELA #### [facility] [address] [place] [address] Dr. Yonny Meza IG # 0.02 10e3/ul Normal 0.00-0.03 [facility] Comment on above: Performed By: #### L IPA, CMP, CMADM, BNP, GRACIELA #### [facility] [address] [place] [address] Dr. Yonny Meza IG % 0.3 % Normal 0.0-0.5 [facility] Comment on above: Performed By: #### L IPA, CMP, CMADM, BNP, GRACIELA #### [facility] [address] [place] [address] Dr. Yonny Meza LYMPH # 2.0 103/ul Normal 1.2-3.8 [facility] Comment on above: Performed By: #### L IPA, CMP, CMADM, BNP, GRACIELA #### [facility] [address] [place] [address] Dr. Yonny Meza Lymphocytes/100 WBC (Bld) 25.3 % Normal 20.5-60.0 [facility] Comment on above: Performed By: #### L IPA, CMP, CMADM, BNP, GRACIELA #### [facility] [address] [place] [address] Dr. Yonny Meza MANUAL DIFF REQ NO Normal [facility] Comment on above: Performed By: #### L IPA, CMP, CMADM, BNP, GRACIELA #### [facility] [address] [place] [address] Dr. Yonny Meza MCH (RBC) [Entitic mass] 31.8 pg Normal 26.7-34.0 [facility] Comment on above: Performed By: #### L IPA, CMP, CMADM, BNP, GRACIELA #### [facility] [address] [place] [address] Dr. Yonny Meza MCHC (RBC) [Mass/Vol] 33.4 g/dL Normal 29.9-35.2 [facility] Comment on above: Performed By: #### L IPA, CMP, CMADM, BNP, GRACIELA #### [facility] [address] [place] [address] Dr. Yonny Meza MCV (RBC) [Entitic vol] 95.1 fL Normal 81.0-99.0 [facility] Comment on above: Performed By: #### L IPA, CMP, CMADM, BNP, GRACIELA #### [facility] [address] [place] [address] Dr. Yonny Meza MONO # 0.9 103/ul Critically high 0.3-0.8 [facility] Comment on above: Performed By: #### L IPA, CMP, CMADM, BNP, GRACIELA #### [facility] [address] [place] [address] Dr. Yonny Meza Monocytes/100 WBC (Bld) 11.5 % Normal 1.7-12.0 [facility] Comment on above: Performed By: #### L IPA, CMP, CMADM, BNP, GRACIELA #### [facility] [address] [place] [address] Dr. Yonny Meza NEUT # 4.8 103/ul Normal 1.4-6.5 [facility] Comment on above: Performed By: #### L IPA, CMP, CMADM, BNP, GRACIELA #### [facility] [address] [place] [address] Dr. Yonny Meza Neutrophils/100 WBC (Bld) 60.9 % Normal 43.0-75.0 [facility] Comment on above: Performed By: #### L IPA, CMP, CMADM, BNP, GRACIELA #### [facility] [address] [place] [address] [address] Yonny Meza Platelet mean volume (Bld) [Entitic vol] 10.1 fL Normal 9.5-13.5 [facility] Comment on above: Performed By: #### L IPA, CMP, CMADM, BNP, GRACIELA #### [facility] [address] [place] [address] Dr. Yonny Meza PLT 252 103/ul Normal 150-450 [facility] Comment on above: Performed By: #### L IPA, CMP, CMADM, BNP, GRACIELA #### [facility] [address] [place] [address] Dr. Yonny Meza RBC 4.09 106/ul Critically low 4.20-5.40 [facility] Comment on above: Performed By: #### L IPA, CMP, CMADM, BNP, GRACIELA #### [facility] [address] [place] [address] Dr. Yonny Meza WBC 7.9 103/ul Normal 4.0-11.0 [facility] Comment on above: Performed By: #### L IPA, CMP, CMADM, BNP, GRACIELA #### [facility] [address] [place] [address] ABD/PELVIS WO CONon [...] [place]ATT[place] Date: 2022-09-03 01:11 Normal [facility] ER URINE PROFILEon 3 Bilirubin Ql (U) Negative Normal NEGATIVE [facility] Comment on above: Performed By: #### L IPA, CMP, CMADM, BNP, GRACIELA #### [facility] [address] [place], [place] [address] Dr. Yonny Meza Clarity (U) CLEAR Normal CLEAR [facility] Comment on above: Performed By: #### L IPA, CMP, CMADM, BNP, GRACIELA #### [facility] [address] [place], [place] [address] Dr. Yonny Meza Color (U) LT. YELLOW Normal YELLOW [facility] Comment on above: Performed By: #### L IPA, CMP, CMADM, BNP, GRACIELA #### [facility] [address] [place] [address] [address] Yonny PATEL A micrscopic examina tion will be performed if indicated. Normal [facility] Comment on above: Performed By: #### L IPA, CMP, CMADM, BNP, GRACIELA #### [facility] [address] [place] [address] [address] Yonny Meza Glucose Ql (U) Negative Normal NEGATIVE [facility] Comment on above: Performed By: #### L IPA, CMP, CMADM, BNP, GRACIELA #### [facility] [address] [place] [address] [address] Yonny Meza Hemoglobin Ql (U) Negative Normal NEGATIVE [facility] Comment on above: Performed By: #### L IPA, CMP, CMADM, BNP, GRACIELA #### [facility] [address] [place] [address] [address] Yonny Meza Ketones Ql (U) Negative Normal NEGATIVE [facility] Comment on above: Performed By: #### L IPA, CMP, CMADM, BNP, GRACIELA #### [facility] [address] [place] [address] [address] Yonny Meza LEUKOCYTES Negative Normal NEGATIVE [facility] Comment on above: Performed By: #### L IPA, CMP, CMADM, BNP, GRACIELA #### [facility] [address] [place] [address] [address] Yonny Meza Nitrite Ql (U) Negative Normal NEGATIVE [facility] Comment on above: Performed By: #### L IPA, CMP, CMADM, BNP, GRACIELA #### [facility] [address] [place] [address] [address] Yonny Meza pH (U) 7.0 [pH] Normal 5-9 [facility] Comment on above: Performed By: #### L IPA, CMP, CMADM, BNP, GRACIELA #### [facility] [address] [place] [address] [address] Yonny Meza SPEC GRAVITY 1.015 Normal 1.005-<=1. 025 [facility] Comment on above: Performed By: #### L IPA, CMP, CMADM, BNP, GRACIELA #### [facility] [address] [place] [address] Dr. Yonny Meza UA PROTEIN Negative Normal NEGATIVE/ TRACE [facility] Comment on above: Performed By: #### L IPA, CMP, CMADM, BNP, GRACIELA #### [facility] [address] [place] [address] Dr. Yonny Meza UR MICRO IND NOT INDICATED Normal [facility] Comment on above: Performed By: #### L IPA, CMP, CMADM, BNP, GRACIELA #### [facility] [address] [place] [address] Dr. Yonny Meza Urobilinogen Qn (U) 0.2 {Arnaud'U}/dL Normal 0.2 - 1. 0 [facility] Comment on above: Performed By: #### L IPA, CMP, CMADM, BNP, GRACIELA #### [facility] [address] [place] [address] Dr. Yonny Meza LACTATE/LACTIC ACIDon 2022 Lactate [Moles/Vol] 2.3 mmol/L Critically high 0.4-2.0 [facility] Comment on above: Performed By: #### L ACT #### [facility] [address] [place] [address] Dr. Yonny Meza Lactate [Moles/Vol] 2.2 mmol/L Critically high 0.4-2.0 [facility] Comment on above: Performed By: #### L IPA, CMP, CMADM, BNP, GRACIELA #### [facility] [address] [place] [address] Dr. Yonny Meza LIPASEon 09-03-2022 Lipase [Catalytic activity/Vol] 88.0 U/L Normal 73.0-393.0 [facility] Comment on above: Performed By: #### L IPA, CMP, CMADM, BNP, GRACIELA #### [facility] [address] [place] [address] Dr. Yonny Meza PROF 14(COMP METB)on 023 Albumin [Mass/Vol] 3.3 g/dL Critically low 3.4-5.0 [facility] Comment on above: Performed By: #### L IPA, CMP, CMADM, BNP, GRACIELA #### [facility] [address] [place] [address] Dr. Yonny Meza Albumin/Globulin [Mass ratio] 0.9 {ratio} Normal [facility] Comment on above: Performed By: #### L IPA, CMP, CMADM, BNP, GRACIELA #### [facility] [address] [place] [address] [address] Yonny Meza ALP [Catalytic activity/Vol] 122 U/L Critically high 46-116 [facility] Comment on above: Performed By: #### L IPA, CMP, CMADM, BNP, GRACIELA #### [facility] [address] [place] [address] Dr. Yonny Meza ALT [Catalytic activity/Vol] 21 U/L Normal 14-59 [facility] Comment on above: Performed By: #### L IPA, CMP, CMADM, BNP, GRACIELA #### [facility] [address] [place] [address] Dr. Yonny Meza Anion gap [Moles/Vol] 12.4 mmol/L Normal [facility] Comment on above: Performed By: #### L IPA, CMP, CMADM, BNP, GRACIELA #### [facility] [address] [place] [address] Dr. Yonny Meza AST [Catalytic activity/Vol] 24 U/L Normal 15-37 [facility] Comment on above: Performed By: #### L IPA, CMP, CMADM, BNP, GRACIELA #### [facility] [address] [place] [address] [address] Yonny Meza Bilirubin [Mass/Vol] 0.4 mg/dL Normal 0.2-1.0 [facility] Comment on above: Performed By: #### L IPA, CMP, CMADM, BNP, GRACIELA #### [facility] [address] [place] [address] Dr. Yonny Meza Calcium [Mass/Vol] 8.7 mg/dL Normal 8.5-10.1 [facility] Comment on above: Performed By: #### L IPA, CMP, CMADM, BNP, GRACIELA #### [facility] [address] [place] [address] [address] Yonny Meza Chloride [Moles/Vol] 105 mmol/L Normal 98-107 [facility] Comment on above: Performed By: #### L IPA, CMP, CMADM, BNP, GRACIELA #### [facility] [address] [place] [address] [address] Yonny Meza CO2 [Moles/Vol] 28.0 mmol/L Normal 21.0-32.0 [facility] Comment on above: Performed By: #### L IPA, CMP, CMADM, BNP, GRACIELA #### [facility] [address] [place] [address] Dr. Yonny Meza Creatinine [Mass/Vol] 1.11 mg/dL Critically high 0.55-1.02 [facility] Comment on above: Performed By: #### L IPA, CMP, CMADM, BNP, GRACIELA #### [facility] [address] [place] [address] Dr. Yonny Meza EGFR-AF ANDORRAN 58 mL/min/1.73m2 Critically low >=60 [facility] Comment on above: Performed By: #### L IPA, CMP, CMADM, BNP, GRACIELA #### [facility] [address] [place] [address] Dr. Yonny Meza EGFR-NON AF ANDORRAN 48 mL/min/1.73m2 Critically low >=60 [facility] Comment on above: Performed By: #### L IPA, CMP, CMADM, BNP, GRACIELA #### [facility] [address] [address] [address] Yonny Meza Globulin (S) [Mass/Vol] 3.7 g/dL Normal [facility] Comment on above: Performed By: #### L IPA, CMP, CMADM, BNP, GRACIELA #### [facility] [address] [place] [address] [address] Yonny Meza Glucose [Mass/Vol] 152 mg/dL Critically high 74-106 [facility] Comment on above: Performed By: #### L IPA, CMP, CMADM, BNP, GRACIELA #### [facility] [address] [address] [address] Yonny Meza Potassium [Moles/Vol] 3.4 mmol/L Critically low 3.5-5.1 [facility] Comment on above: Performed By: #### L IPA, CMP, CMADM, BNP, GRACIELA #### [facility] [address] [address] [address] Yonny Meza Protein [Mass/Vol] 7.0 g/dL Normal 6.4-8.2 [facility] Comment on above: Performed By: #### L IPA, CMP, CMADM, BNP, GRACIELA #### [facility] [address] [place] [address] Dr. Yonny Meza Sodium [Moles/Vol] 142 mmol/L Normal 136-145 [facility] Comment on above: Performed By: #### L IPA, CMP, CMADM, BNP, GRACIELA #### [facility] [address] [place] [address] Dr. Yonny Meza Urea nitrogen [Mass/Vol] 14.0 mg/dL Normal 7.0-18.0 [facility] Comment on above: Performed By: #### L IPA, CMP, CMADM, BNP, GRACIELA #### [facility] [address] [place] [address] Dr. Yonny Meza Urea nitrogen/Creatinine [Mass ratio] 12.6 mg/mg Normal [facility] Comment on above: Performed By: #### L IPA, CMP, CMADM, BNP, GRACIELA #### [facility] [address] [place] [address] Dr. Yonny Meza PROTIMEon 09-03-2022 INR Coag (PPP) [Relative time] 1.05 {INR} Normal [facility] Comment on above: Performed By: #### L IPA, CMP, CMADM, BNP, GRACIELA #### [facility] [address] [place] [address] Dr. Yonny Meza INR GUIDELINES SEE BELOW Normal [facility] Comment on above: Result Comment: ASCENCION RED INR: 2.0 - 3.0 CONDITIONS NOT LISTED BELOW 2.5 - 3.5 FOR PROSTHETIC HEART VALVE REPLACEMENT 2.5 - 3.5 RECURRENT THROMBOSIS Performed By: #### L IPA, CMP, CMADM, BNP, GRACIELA #### [facility] [address] [address] [address] Yonny Meza PT Coag (PPP) [Time] 11.1 s Normal 9.0-11.6 [facility] Comment on above: Performed By: #### L IPA, CMP, CMADM, BNP, GRACIELA #### [facility] [address] [place], [place] [address] Dr. Yonny Meza PTTon 09-03-2022 aPTT Coag (Bld) [Time] 26.7 s Normal 22.3-36.2 [facility] Comment on above: Performed By: #### L IPA, CMP, CMADM, BNP, GRACIELA #### [facility] [address] [address] [address] Yonny Meza XR CHEST 1 Von [...] by: HATT[place] Date: 2022-09-03 00:08 Normal [facility] MAMM SCREEN 3D RON CADon 06-06-2022 MAMM SCREEN 3D RON CAD Patient: LUMA RIBEIRO Exam Date: 06/06/2022 : 1945 Gender:F Ordering : DR ROC STEELE M.D. Admission #: [id number] Family : Order #: [id number] CLICK HERE TO VIEW EXAM RADIOLOGY REPORT [...] breast cancer at age 61. LOCATION: [facility] BREAST COMPOSITION: Scattered areas fibroglandular density. FINDINGS: [...] MD on 06/07/2022 at 08:09 Normal [facility] No Panel Informationon 12-16 Please click on the link to view the study images Normal -[facility] Work Phone: Radiologyon 12-03-2020 XR Pelvis and Hip - left [address] [facility] Work Phone: MRI Humerus w/wo Contraston 11-20-2020 MRI Humerus w/wo Contrast Normal [facility] Work Phone: Otheron 02-13-2020 Interpreted by: BONIFACIO WARE 15:34MRN: [id number] Name: GEMALUMA STUDY:HIP, UNILATERAL W/PELVIS WHEN PERFORMED 2-3 VIEWS; Right;02/13/2020 1:58 pm INDICATION:pain. 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 No acute bony abnormality orperiprosthetic fracture appreciated. Electronically signed by: TASIA BIRD 10/15/20 15:34 Normal [facility] Work Phone: Complete Blood Count + Diffe rentialon 01-30-2020 Basophils (Bld) [#/Vol] 0.04 {x10E9/L} See Below [facility] Work Phone: Comment on above: Reference Range: 0.0 0 - 0.10 Basophils/100 WBC (Bld) 0.2 % 0.0 - 2.0 [facility] Work Phone: Eosinophils (Bld) [#/Vol] 0.01 {x10E9/L} See Below [facility] Work Phone: Comment on above: Reference Range: 0.0 0 - 0.40 Eosinophils/100 WBC (Bld) 0.1 % 0.0 - 6.0 [facility] Work Phone: Erythrocyte distribution width (RBC) [Ratio] 13.1 % See Below [facility] Work Phone: Comment on above: Reference Range: 11. 5 - 14.5 Hematocrit (Bld) [Volume fraction] 34.8 % below low threshold See Below [facility] Work Phone: Comment on above: Reference Range: 36. 0 - 46.0 Hemoglobin (Bld) [Mass/Vol] 11.3 g/dL below low threshold See Below [facility] Work Phone: Comment on above: Reference Range: 12. 0 - 16.0 Lymphocytes (Bld) [#/Vol] 2.21 {x10E9/L} See Below [facility] Work Phone: Comment on above: Reference Range: 0.8 0 - 3.00 Lymphocytes/100 WBC (Bld) 12.5 % See Below [facility] Work Phone: [phone] Comment on above: Reference Range: 13. 0 - 44.0 MCHC (RBC) [Mass/Vol] 32.5 g/dL See Below [facility] Work Phone: [phone] Comment on above: Reference Range: 32. 0 - 36.0 MCV (RBC) [Entitic vol] 99 fL 80 - 100 [facility] Work Phone: [phone] Monocytes (Bld) [#/Vol] 1.82 {x10E9/L} above high threshold See Below [facility] Work Phone: [phone] Comment on above: Reference Range: 0.0 5 - 0.80 Monocytes/100 WBC (Bld) 10.3 % 2.0 - 10.0 [facility] Work Phone: [phone] Neutrophils/100 WBC (Bld) 76.3 % See Below [facility] Work Phone: [phone] Comment on above: Reference Range: 40. 0 - 80.0 Platelets (Bld) [#/Vol] 234 {x10E9/L} 150 - 450 [facility] Work Phone: [phone] RBC (Bld) [#/Vol] 3.52 {x10E12/L} below low threshold See Below [facility] Work Phone: [phone] Comment on above: Reference Range: 4.0 0 - 5.20 WBC (Bld) [#/Vol] 17.7 {x10E9/L} above high threshold 4.4 - 11.3 [facility] Work Phone: [phone] Complete Blood Count + Differential 0.6 % 0.0 - 0.9 [facility] Work Phone: [phone] Comment on above: Immature Granulocyte Count (IG) includes promyelocytes, myelocytes and metamyelocytes but does not include bands. Percent differential counts (%) should be interpreted in the context of the absolute cell counts (cells/L). Complete Blood Count + Differential 13.52 {x10E9/L} above high threshold See Below [facility] [place] Work Phone: Comment on above: Reference Range: 1.6 0 - 5.50 Metabolic Panelon 01-30-2020 Anion gap [Moles/Vol] 8 mmol/L below low threshold 10 - 20 [facility] [place] Work Phone: Calcium [Mass/Vol] 8.8 mg/dL 8.6 - 10.[address] [facility] [place] Work Phone: [phone] Chloride [Moles/Vol] 101 mmol/L 98 - 107 [facility] [place] Work Phone: [phone] CO2 [Moles/Vol] 32 mmol/L 21 - 32 [facility] [place] Work Phone: Creatinine [Mass/Vol] 1.00 mg/dL See Below [facility] [place] Work Phone: [phone] Comment on above: Reference Range: 0.5 0 - 1.05 Glucose [Mass/Vol] 128 mg/dL above high threshold 74 - 99 [facility] [place] Work Phone: [phone] Potassium [Moles/Vol] 4.2 mmol/L 3.5 - 5.3 [facility] [place] Work Phone: [phone] Sodium [Moles/Vol] 137 mmol/L 136 - 145 [facility] [place] Work Phone: [phone] Urea nitrogen [Mass/Vol] 14 mg/dL 6 - 23 [facility] [place] Work Phone: [phone] Otheron 01-30-2020 65 {mL/min/1.73m2} >[address] [facility] [place] Work Phone: [phone] Comment on above: CALCULATIONS OF TONE MATED GFR ARE PERFORMED USING THE MDRD STUDY EQUATION FOR THE IDMS-TRACEABLE CREATININE METHODS. CLIN CHEM 2007;53:766-72 54 {mL/min/1.73m2} Abnormal >60 [facility] Work Phone: Otheron 01-29-2020 Interpreted by: VPUIXC27/01/20 15:21MRN: [id number] Name: LUMA RIBEIRO STUDY:HIP, UNILATERAL W/PELVIS WHEN PERFORMED 2-3 VIEWS; 01/29/2020 12:25 pm INDICATION:s/p right ROSSANA. COMPARISON:01/16/2020 ORDERING CLINICIAN:TASIA BIRD FINDINGS:Pelvis and right hip, three views Interval right total hip arthroplasty noted without periprostheticfracture or lucency. There is no dislocation. IMPRESSION:Right total hip arthroplasty without immediate complicationsElectronically signed by: RAJIV 01/30/20 15:[address] [facility] Work Phone: XR Pelvis 1 or [...] make patient management decisions.Fact sheet for providers: https://www.fda.gov/media/003808/downloadFact sheet for patients: https://www.fda.gov/media/718989/downloadThis test has received FDA Emergency Use Authorization (EUA) and has been verified by [facility] ([facility]). This test is only authorized for the duration of time that circumstances exist to justify the authorization of the emergency use of in vitro diagnostic tests for the detection of SARS-CoV-2 virus and/or diagnosis of COVID-19 infection under section 564(b)(1) of the Act, 21 U.S.C. 360bbb-3(b)(1), unless the authorization is terminated or revoked sooner. [facility] is certified under CLIA-88 as qualified to perform high complexity testing. Testing is performed in the [facility] laboratories located at [address] [place] [address]. Activated Partial Thrombopla stin Timeon 01-20-2020 aPTT [...] WBC (Bld) 0.5 % 0.0 - 2.[address] [facility] Work Phone: Eosinophils (Bld) [#/Vol] 0.09 {x10E9/L} See Below [facility] Work Phone: Comment on above: Reference Range: 0.0 0 - 0.40 Eosinophils/100 WBC (Bld) 1.0 % 0.0 - 6.[address] [facility] Work Phone: [phone] Erythrocyte distribution width (RBC) [Ratio] 12.9 % See Below [facility] Work Phone: Comment on above: Reference Range: 11. 5 - 14.5 Hematocrit (Bld) [Volume fraction] 44.6 % See Below [facility] [place] Work Phone: Comment on above: Reference Range: 36. 0 - 46.0 Hemoglobin (Bld) [Mass/Vol] 14.5 g/dL See Below [facility] [place] Work Phone: [phone] Comment on above: Reference Range: 12. 0 - 16.0 Lymphocytes (Bld) [#/Vol] 3.41 {x10E9/L} above high threshold See Below [facility] [place] Work Phone: [phone] Comment on above: Reference Range: 0.8 0 - 3.00 Lymphocytes/100 WBC (Bld) 38.4 % See Below [facility]: Comment on above: Reference Range: 13. 0 - 44.0 MCHC (RBC) [Mass/Vol] 32.5 g/dL See Below [facility] [place] Work Phone: [phone] Comment on above: Reference Range: 32. 0 - 36.0 MCV (RBC) [Entitic vol] 100 fL 80 - 100 [facility] Work Phone: [phone] Monocytes (Bld) [#/Vol] 0.81 {x10E9/L} above high threshold See Below [facility] [place] Work Phone: [phone] Comment on above: Reference Range: 0.0 5 - 0.80 Monocytes/100 WBC (Bld) 9.1 % 2.0 - 10.0 [facility] [place] Work Phone: [phone] (Bld) [#/Vol] 4.49 {x10E9/L} See Below [facility] [place] Work Phone: [phone] Comment on above: Reference Range: 1.6 0 - 5.50 Neutrophils/100 WBC (Bld) 50.7 % See Below [facility] Work Phone: Comment on above: Reference Range: 40. 0 - 80.0 Platelets (Bld) [#/Vol] 261 {x10E9/L} 150 - [address] [facility] Work Phone: [phone] RBC (Bld) [#/Vol] 4.48 {x10E12/L} See Below [facility] For [facility] Work Phone: [phone] Comment on above: Reference Range: 4.0 0 - 5.20 WBC (Bld) [#/Vol] 8.9 {x10E9/L} 4.4 - 11.3 [facility] For [facility] Work Phone: [phone] Complete Blood Count + Differential 0.3 % 0.0 - 0.[address] [facility] Work Phone: [phone] Comment on above: Immature Granulocyte Count (IG) includes promyelocytes, myelocytes and metamyelocytes but does not include bands. Percent differential counts (%) should be interpreted in the context of the absolute cell counts (cells/L). Fructosamine, Serumon 2019 Fructosamine [Moles/Vol] 265 umol/L 0-[address] [facility] Work Phone: Comment on above: Published reference interval for apparently healthy subjectsbetween age 20 and 60 is 205 - 285 umol/L and in a poorlycontrolled diabetic population is 228 - 563 umol/L with amean of 396 umol/L. Hematologyon 01-20-2020 INR Coag (PPP) [Relative time] 1.1 {INR} 0.9 - 1.[address] [facility] Work Phone: [phone] PT Coag (PPP) [Time] 13.0 {sec} See Below [facility] Work Phone: [phone] Comment on above: Reference Range: 10. 1 [...] [facility] [place] Work Phone: [phone] CO2 [Moles/Vol] 32 mmol/L 21 - 32 -[facility] [place] Work Phone: Creatinine [Mass/Vol] 1.01 mg/dL See Below - [facility] [place] Work Phone: Comment on above: Reference Range: 0.5 0 - 1.05 Glucose [Mass/Vol] 88 mg/dL 74 - [address] [facility] [place] Work Phone: Potassium [Moles/Vol] 3.9 mmol/L 3.5 - 5.3 - [facility] [place] Work Phone: Protein [Mass/Vol] 7.6 g/dL 6.4 - 8.[address] [facility] [place] Work Phone: Sodium [Moles/Vol] 142 mmol/L 136 - [address] [facility] [place] Work Phone: Urea nitrogen [Mass/Vol] 15 mg/dL 6 - 23 -[facility] [place] Work Phone: Otheron 01-20-2020 100 1 -[facility] [place] Work Phone: [phone] [facility] [place] Work Phone: [phone] 1 [facility] [place] Work Phone: [phone] 1 [facility] [place] Work Phone: [phone] [facility] [place] Work Phone: [phone] 1 [facility] [place] Work Phone: [phone] Sinus rhythm with occasional premature ventricular complexes [facility] [place] Work Phone: [phone] 1 [facility] [place] Work Phone: [phone] [email or web address] 1:8080/ [email or web address]?Ret rieveTestByDateTime?Patient FC=[id number]&Date= 0&Time=14%3a54%3a12%3a00&Te stType=ECG&Site=11&OutputTy pe=PDF&Ext=PDF -[facility] [place] Work Phone: [phone] 1 [facility] [place] Work Phone: [phone] 1 [facility] [place] Work Phone: [phone] 1 [facility] [place] Work Phone: [phone] 1 [facility] [place] Work Phone: [phone] 1 [facility] [place] Work Phone: [phone] 1 [facility] [place] Work Phone: [phone] Albumin BCP dye [Mass/Vol] 4.4 g/dL 3.4 - 5.0 [facility] [place] Work Phone: [phone] With P-5'-P [Catalytic activity/Vol] 16 U/L 7 - 45 [facility] [place] Work Phone: Comment on above: Patients treated wit h Sulfasalazine may generate falsely decreased results for ALT. AST With P-5'-P [Catalytic activity/Vol] 23 U/L 9 - 39 [facility] Work Phone: 65 {mL/min/1.73m2} >[address] [facility] [facility] Work Phone: Comment on above: CALCULATIONS OF TONE MATED GFR ARE PERFORMED USING THE MDRD STUDY EQUATION FOR THE IDMS-TRACEABLE CREATININE METHODS. CLIN CHEM 2007;53:766-72 54 {mL/min/1.73m2} Abnormal >[address] For [employer] Phone: Urinalysison 01-20-2020 Appearance (U) HAZY CLEAR -[facility] [employer] Phone: Color (U) YELLOW See Below -[facility] [employer] [place] [employer] Work Phone: [phone] Comment on above: Reference Range: STR AW,YELLOW Glucose Ql (U) Negative NEGATIVE -[facility] Work Phone: [phone] Ketones Ql (U) Negative NEGATIVE -[facility] [employer] Phone: [phone] Leukocyte esterase Test strip Ql (U) Negative NEGATIVE -[place] [facility] [employer] Phone: pH (U) 7.0 [pH] 5.0 - 8.0 -[facility] Work Phone: [phone] Protein (U) [Mass/Vol] Negative NEGATIVE -[facility] [place] [employer] Work Phone: [phone] RBC (U) [#/Vol] Negative NEGATIVE -[facility] Work Phone: [phone] Specific gravity (U) [Rel density] 1.019 See Below -[facility] [employer] [place] [employer] Phone: [phone] Comment on above: Reference Range: 1.0 05 - 1.035 Urinalysis Negative NEGATIVE [facility] Work Phone: Urinalysis 2.0 mg/dL above high threshold 0.0 - 1.[address] [facility] Work Phone: Comment on above: Due [...] Otheron 01-16-2020 Interpreted by: AGNES ALVARADO01/16/20 13:42MRN: [id number] Name: LUMA RIBEIRO STUDY:HIP, UNILATERAL W/PELVIS WHEN PERFORMED 2-3 VIEWS; Right; 01/16/20201:39 pm INDICATION:pain. ORDERING CLINICIAN:HARSHAL ALVARADO FINDINGS:AP lateral right hip x-ray shows end-stage gddangitzksqzqmxdv-hu-upws arthrosis noted. 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 Electronically signed by: HARSHAL ALVARADO 01/16/20 13:[address] [facility] Work Phone: Vital Signs Date Time Vital Sign Value Performing Clinician Facility 2024 15:00-0400 Diastolic blood pressure 90 mm[Hg] Amber Hawley MD Work Phone: [facility] 2024 15:00-0400 Systolic blood pressure 130 mm[Hg] Amber Hawley MD Work Phone: [facility] 2024 14:11-0400 Body height 162.6 cm Amber Hawley MD Work Phone: [facility] 2024 14:11-0400 Body mass index (BMI) [Ratio] 44.97 kg/m2 Amber Hawley MD Work Phone: [facility] 2024 14:11-0400 Body weight 118.84 kg Amber Hawley MD Work Phone: [facility] 2024 14:11-0400 Heart rate 72 /min Amber Hawley MD Work Phone: [facility] 10-16-2024 11:33-0400 Body height 157.5 cm Kamila Pride EXPORT COORDINATOR Work Phone: [facility] 10-16-2024 11:33-0400 Body mass index (BMI) [Ratio] 48.47 kg/m2 Kamila Bigg EXPORT COORDINATOR Work Phone: [facility] 10-16-2024 11:33-0400 Body weight 120.2 kg Kamila Espitiavely EXPORT COORDINATOR Work Phone: [facility] 10-16-2024 11:33-0400 Diastolic blood pressure 101 mm[Hg] Kamila [place] EXPORT COORDINATOR Work Phone: [facility] 10-16-2024 11:33-0400 Heart rate 77 /min Kamila Bigg EXPORT COORDINATOR Work Phone: [facility] 10-16-2024 11:33-0400 Respiratory rate 17 /min Kamila [place] EXPORT COORDINATOR Work Phone: [facility] 10-16-2024 11:33-0400 SaO2% (BldA) [Mass fraction] 96 % Kamila Espitiavely EXPORT COORDINATOR Work Phone: [facility] 10-16-2024 11:33-0400 Systolic blood pressure 182 mm[Hg] Kamila [place] EXPORT COORDINATOR Work Phone: [facility] 10-10-2024 15:03-0400 Body height 157.5 cm Alex Alfredo DPM Work Phone: [facility] 10-10-2024 15:03-0400 Body mass index (BMI) [Ratio] 49.02 kg/m2 Alex Alfredo DPM Work Phone: [facility] 10-10-2024 15:03-0400 Body weight 121.56 kg lAex Alfredo DPM Work Phone: [facility] 10-10-2024 15:03-0400 Respiratory rate 18 /min Alex Alfredo DPM Work Phone: [facility] 09-18-2024 11:00-0400 Body height 162.[address] 09-18-2024 11:00-0400 Body mass index (BMI) [Ratio] 46.17 kg/m2 [address] 09-18-2024 11:00-0400 Body weight 122.[address] 09-18-2024 11:00-0400 Diastolic blood pressure 86 mm[Hg] [address] 09-18-2024 11:00-0400 Systolic blood pressure 124 mm[Hg] [address] 09-18-2024 10:44-0400 Diastolic blood pressure 78 mm[Hg] [address] 09-18-2024 10:44-0400 Heart rate 67 /min [address] 09-18-2024 10:44-0400 Systolic blood pressure 122 mm[Hg] [address] 08-19-2024 11:24-0400 Body height 157.5 cm Roc Steele MD Work Phone: [facility] 08-19-2024 11:24-0400 Body mass index (BMI) [Ratio] 49.02 kg/m2 Roc Steele MD Work Phone: [facility] 08-19-2024 11:24-0400 Body weight 121.56 kg Roc Steele MD Work Phone: [facility] 08-19-2024 11:24-0400 Diastolic blood pressure 86 mm[Hg] Roc Steele MD Work Phone: [facility] 08-19-2024 11:24-0400 Heart rate 89 /min Roc Steele MD Work Phone: [facility] 08-19-2024 11:24-0400 SaO2% (BldA) [Mass fraction] 96 % Roc Steele MD Work Phone: [facility] 08-19-2024 11:24-0400 Systolic blood pressure 138 mm[Hg] Roc Steele MD Work Phone: [facility] 08-01-2024 14:45-0400 Body height 157.5 cm Alex Alfredo DPM Work Phone: [facility] 08-01-2024 14:45-0400 Body mass index (BMI) [Ratio] 48.65 kg/m2 Alex Alfredo DPM Work Phone: [facility] 08-01-2024 14:45-0400 Body weight 120.66 kg Alex Alfredo DPM Work Phone: [facility] 08-01-2024 14:45-0400 Respiratory rate 16 /min Alex Alfredo DPM Work Phone: [facility] 08-01-2024 13:31-0400 Body height 157.5 cm Kamila Pride EXPORT COORDINATOR Work Phone: [facility] 08-01-2024 13:31-0400 Body mass index (BMI) [Ratio] 48.73 kg/m2 Kamila [place] EXPORT COORDINATOR Work Phone: [facility] 08-01-2024 13:31-0400 Body weight 120.84 kg Kamila Bigg EXPORT COORDINATOR Work Phone: [facility] 08-01-2024 13:31-0400 Diastolic blood pressure 82 mm[Hg] Kamila [place] EXPORT COORDINATOR Work Phone: [facility] 08-01-2024 13:31-0400 Heart rate 88 /min Kamila [place] EXPORT COORDINATOR Work Phone: [facility] 08-01-2024 13:31-0400 Respiratory rate 17 /min Kamila Bigg EXPORT COORDINATOR Work Phone: [facility] 08-01-2024 13:31-0400 SaO2% (BldA) [Mass fraction] 99 % Kamila [place] EXPORT COORDINATOR Work Phone: [facility] 08-01-2024 13:31-0400 Systolic blood pressure 134 mm[Hg] Kamila Pride EXPORT COORDINATOR Work Phone: [facility] 07-15-2024 11:25-0400 Body height 162.6 cm Amber Hawley MD Work Phone: [facility] 07-15-2024 11:25-0400 Body mass index (BMI) [Ratio] 46.17 kg/m2 Amber Hawley MD Work Phone: [facility] 07-15-2024 11:25-0400 Body weight 122.02 kg Amber Hawley MD Work Phone: [facility] 07-15-2024 11:25-0400 Diastolic blood pressure 88 mm[Hg] Amber Hawley MD Work Phone: [facility] 07-15-2024 11:25-0400 Heart rate 93 /min Amber Hawley MD Work Phone: [facility] 07-15-2024 11:25-0400 Systolic blood pressure 128 mm[Hg] Amber Hawley MD Work Phone: [facility] 07-11-2024 12:59-0400 Body height 157.5 cm Kamila Pride EXPORT COORDINATOR Work Phone: [facility] 07-11-2024 12:59-0400 Body mass index (BMI) [Ratio] 49.93 kg/m2 Kamila Pride EXPORT COORDINATOR Work Phone: [facility] 07-11-2024 12:59-0400 Body weight 123.83 kg Kamila Pride EXPORT COORDINATOR Work Phone: [facility] 07-11-2024 12:59-0400 Diastolic blood pressure 80 mm[Hg] Kamila Pride EXPORT COORDINATOR Work Phone: [facility] 07-11-2024 12:59-0400 Heart rate 87 /min Kamila Pride EXPORT COORDINATOR Work Phone: [facility] 07-11-2024 12:59-0400 SaO2% (BldA) [Mass fraction] 97 % Kamila [place]ins[place] EXPORT COORDINATOR Work Phone: [facility] 07-11-2024 12:59-0400 Systolic blood pressure 130 mm[Hg] Kamila Bigg EXPORT COORDINATOR Work Phone: [facility] 07-03-2024 11:31-0500 Body height 157.5 cm Kamila Bigg EXPORT COORDINATOR Work Phone: [facility] 07-03-2024 11:31-0500 Body mass index (BMI) [Ratio] 50.22 kg/m2 Kamila [place] EXPORT COORDINATOR Work Phone: [facility] 07-03-2024 11:31-0500 Body weight 124.56 kg Kamila Bigg EXPORT COORDINATOR Work Phone: [facility] 07-03-2024 11:31-0500 Diastolic blood pressure 82 mm[Hg] Kamila Bigg EXPORT COORDINATOR Work Phone: [facility] 07-03-2024 11:31-0500 Heart rate 74 /min Kamila [place] EXPORT COORDINATOR Work Phone: [facility] 07-03-2024 11:31-0500 Respiratory rate 17 /min Kamila Bigg EXPORT COORDINATOR Work Phone: [facility] 07-03-2024 11:31-0500 SaO2% (BldA) [Mass fraction] 94 % Kamila Bigg EXPORT COORDINATOR Work Phone: [facility] 07-03-2024 11:31-0500 Systolic blood pressure 136 mm[Hg] Kamila Bigg EXPORT COORDINATOR Work Phone: [facility] 06-11-2024 11:07-0500 Body height 157.5 cm Kamila [place] EXPORT COORDINATOR Work Phone: [facility] 06-11-2024 11:07-0500 Body mass index (BMI) [Ratio] 49.2 kg/m2 Kamila Bigg EXPORT COORDINATOR Work Phone: [facility] 06-11-2024 11:07-0500 Body weight 122.02 kg Kamila [place] EXPORT COORDINATOR Work Phone: [facility] 06-11-2024 11:07-0500 Diastolic blood pressure 78 mm[Hg] Kamila Pride EXPORT COORDINATOR Work Phone: [facility] 06-11-2024 11:07-0500 Heart rate 76 /min Kamila Pride EXPORT COORDINATOR Work Phone: [facility] 06-11-2024 11:07-0500 Respiratory rate 17 /min Kamila Pride EXPORT COORDINATOR Work Phone: [facility] 06-11-2024 11:07-0500 SaO2% (BldA) [Mass fraction] 99 % Kamila Pride EXPORT COORDINATOR Work Phone: [facility] 06-11-2024 11:07-0500 Systolic blood pressure 134 mm[Hg] Kamila Pride EXPORT COORDINATOR Work Phone: [facility] 05-23-2024 14:37-0500 Body height 157.5 cm Alex Alfredo DPM Work Phone: [facility] 05-23-2024 14:37-0500 Body mass index (BMI) [Ratio] 50.3 kg/m2 Alex Alfredo DPM Work Phone: [facility] 05-23-2024 14:37-0500 Body weight 124.74 kg Alex Alfredo DPM Work Phone: [facility] 05-23-2024 14:37-0500 Respiratory rate 18 /min Alex Alfredo DPM Work Phone: [facility] 05-22-2024 10:11-0500 Body height 157.5 cm Kamila Pride EXPORT COORDINATOR Work Phone: [facility] 05-22-2024 10:11-0500 Body mass index (BMI) [Ratio] 50.33 kg/m2 Kamila Pride EXPORT COORDINATOR Work Phone: [facility] 05-22-2024 10:11-0500 Body weight 124.83 kg Kamila Bigg EXPORT COORDINATOR Work Phone: [facility] 05-22-2024 10:11-0500 Diastolic blood pressure 80 mm[Hg] Kamila [place] EXPORT COORDINATOR Work Phone: [facility] 05-22-2024 10:11-0500 Heart rate 77 /min Kamila Bigg EXPORT COORDINATOR Work Phone: [facility] 05-22-2024 10:11-0500 Respiratory rate 18 /min Kamila [place] EXPORT COORDINATOR Work Phone: [facility] 05-22-2024 10:11-0500 SaO2% (BldA) [Mass fraction] 99 % Kamila [place] EXPORT COORDINATOR Work Phone: [facility] 05-22-2024 10:11-0500 Systolic blood pressure 128 mm[Hg] Kamila [place] EXPORT COORDINATOR Work Phone: [facility] 05-15-2024 11:32-0500 Body height 157.5 cm Kamila Bigg EXPORT COORDINATOR Work Phone: [facility] 05-15-2024 11:32-0500 Body mass index (BMI) [Ratio] 48.54 kg/m2 Kamila [place] EXPORT COORDINATOR Work Phone: [facility] 05-15-2024 11:32-0500 Body weight 120.39 kg Kamila [place] EXPORT COORDINATOR Work Phone: [facility] 05-15-2024 11:32-0500 Diastolic blood pressure 76 mm[Hg] Kamila [place] EXPORT COORDINATOR Work Phone: [facility] 05-15-2024 11:32-0500 Heart rate 97 /min Kamila Bigg EXPORT COORDINATOR Work Phone: [facility] 05-15-2024 11:32-0500 Respiratory rate 18 /min Kamila Bigg EXPORT COORDINATOR Work Phone: [facility] 05-15-2024 11:32-0500 SaO2% (BldA) [Mass fraction] 98 % Kamila Bigg EXPORT COORDINATOR Work Phone: [facility] 05-15-2024 11:32-0500 Systolic blood pressure 126 mm[Hg] Kamila [place] EXPORT COORDINATOR Work Phone: [facility] 05-07-2024 10:53-0500 Body height 157.5 cm Kamila [place] EXPORT COORDINATOR Work Phone: [facility] 05-07-2024 10:53-0500 Body mass index (BMI) [Ratio] 48.87 kg/m2 Kamila Twinsburg EXPORT COORDINATOR Work Phone: [facility] 05-07-2024 10:53-0500 Body weight 121.2 kg Kamila Twinsburg EXPORT COORDINATOR Work Phone: [facility] 05-07-2024 10:53-0500 Diastolic blood pressure 82 mm[Hg] Kamila Twinsburg EXPORT COORDINATOR Work Phone: [facility] 05-07-2024 10:53-0500 Heart rate 88 /min Kamila Twinsburg EXPORT COORDINATOR Work Phone: [facility] 05-07-2024 10:53-0500 Respiratory rate 18 /min Kamila Twinsburg EXPORT COORDINATOR Work Phone: [facility] 05-07-2024 10:53-0500 SaO2% (BldA) [Mass fraction] 95 % Kamila Bigg EXPORT COORDINATOR Work Phone: [facility] 05-07-2024 10:53-0500 Systolic blood pressure 130 mm[Hg] Kamila [place]insburg EXPORT COORDINATOR Work Phone: [facility] 04-03-2024 08:32-0500 Body height 157.5 cm Kamila Bigg EXPORT COORDINATOR Work Phone: [facility] 04-03-2024 08:32-0500 Body mass index (BMI) [Ratio] 49.6 kg/m2 Kamila Twinsburg EXPORT COORDINATOR Work Phone: [facility] 04-03-2024 08:32-0500 Body weight 123.02 kg Kamila Bigg EXPORT COORDINATOR Work Phone: [facility] 04-03-2024 08:32-0500 Diastolic blood pressure 80 mm[Hg] Kamila Twinsburg EXPORT COORDINATOR Work Phone: [facility] 04-03-2024 08:32-0500 Heart rate 74 /min Kamila [place]insburg EXPORT COORDINATOR Work Phone: [facility] 04-03-2024 08:32-0500 Respiratory rate 17 /min Kamila Bigg EXPORT COORDINATOR Work Phone: [facility] 04-03-2024 08:32-0500 SaO2% (BldA) [Mass fraction] 98 % Kamila Bigg EXPORT COORDINATOR Work Phone: [facility] 04-03-2024 08:32-0500 Systolic blood pressure 126 mm[Hg] Kamila Bigg EXPORT COORDINATOR Work Phone: [facility] 03-05-2024 11:19-0500 Body height 157.5 cm Kamila Bigg EXPORT COORDINATOR Work Phone: [facility] 03-05-2024 11:19-0500 Body mass index (BMI) [Ratio] 50.85 kg/m2 Kamila Twinsburg EXPORT COORDINATOR Work Phone: [facility] 03-05-2024 11:19-0500 Body weight 126.1 kg Kamila Bigg EXPORT COORDINATOR Work Phone: [facility] 03-05-2024 11:19-0500 Diastolic blood pressure 76 mm[Hg] Kamila Twinsburg EXPORT COORDINATOR Work Phone: [facility] 03-05-2024 11:19-0500 Heart rate 102 /min Kamila Bigg EXPORT COORDINATOR Work Phone: [facility] 03-05-2024 11:19-0500 SaO2% (BldA) [Mass fraction] 98 % Kamila Bigg EXPORT COORDINATOR Work Phone: [facility] 03-05-2024 11:19-0500 Systolic blood pressure 134 mm[Hg] Kamila Twinsburg EXPORT COORDINATOR Work Phone: [facility] 02-22-2024 14:09-0400 Body height 157.5 cm Alex Alfredo DPM Work Phone: [facility] 02-22-2024 14:09-0400 Body mass index (BMI) [Ratio] 50.85 kg/m2 Alex Alfredo DPM Work Phone: [facility] 02-22-2024 14:09-0400 Body weight 126.1 kg Alex Alfredo DPM Work Phone: [facility] 02-22-2024 14:09-0400 Diastolic blood pressure 80 mm[Hg] Alex Brown DPM Work Phone: [facility] 02-22-2024 14:09-0400 Heart rate 82 /min Alex Brown DPM Work Phone: [facility] 02-22-2024 14:09-0400 Systolic blood pressure 126 mm[Hg] Alex Brown DPM Work Phone: [facility] 06-15-2023 14:42-0500 Body height 157.5 cm Alex Brown DPM Work Phone: [facility] 06-15-2023 14:42-0500 Body mass index (BMI) [Ratio] 50.48 kg/m2 Alex Brown DPM Work Phone: [facility] 06-15-2023 14:42-0500 Body weight 125.19 kg Alex Brown DPM Work Phone: [facility] 06-15-2023 14:42-0500 Diastolic blood pressure 82 mm[Hg] Alex Brown DPM Work Phone: [facility] 06-15-2023 14:42-0500 Heart rate 84 /min Alex Brown DPM Work Phone: [facility] 06-15-2023 14:42-0500 Systolic blood pressure 133 mm[Hg] Alex Brown DPM Work Phone: [facility] 06-01-2023 15:33-0500 Body height 157.5 cm Alex Brown DPM Work Phone: [facility] 06-01-2023 15:33-0500 Body mass index (BMI) [Ratio] 50.48 kg/m2 Alex Brown DPM Work Phone: [facility] 06-01-2023 15:33-0500 Body weight 125.19 kg Alex Alfredo DPM Work Phone: [facility] 06-01-2023 15:33-0500 Diastolic blood pressure 80 mm[Hg] Alex Alfredo DPM Work Phone: [facility] 06-01-2023 15:33-0500 Heart rate 79 /min Alex Alfredo DPM Work Phone: [facility] 06-01-2023 15:33-0500 Systolic blood pressure 130 mm[Hg] Alex Alfredo DPM Work Phone: [facility] 01-16-2020 15:36-0400 BMI (Body Mass Index) 46.35 kg/m2 Tasia Pelon [facility] [place] Work Phone: 01-16-2020 15:36-0400 Body weight 122.47 kg Tasia [facility] [place] Work Phone: 01-16-2020 15:36-0400 BSA (Body Surface Area) 2.22 m2 Tasia [facility] [place] Work Phone: 01-16-2020 15:36-0400 Height 162.56 cm Tasia [facility] [place] Work Phone: Encounters Encounter Date Encounter Type Care Provider Facility Start: 2024 End: 2024 Office outpatient visit 25 minutes Amber Hawley MD Work Phone: [facility] Comment on above: Encounter to discuss test results (Primary Dx); Uses roller walker; Palpitations; Mixed hyperlipidemia; Chest discomfort; CARO on CPAP; Paroxysmal supraventricular tachycardia; Never smoked cigarettes; Body mass index (BMI) 40.0-44.9, adult (Multi) Start: 2024 End: [address] [facility] Start: 11-04-2024 End: 11-04-2024 ambulatory Daron Sanchez MD Facility:[facility] Start: 10-16-2024 End: 10-16-2024 Bamboo flowsheet Kamila Pride EXPORT COORDINATOR Work Phone: [facility] Start: 10-16-2024 End: 10-16-2024 Bamboo flowsheet Kamila Pride EXPORT COORDINATOR Work Phone: [facility] Start: 10-16-2024 End: 10-16-2024 Office outpatient visit 15 minutes Kamila Pride EXPORT COORDINATOR Work Phone: [facility] Comment on above: Acute low back pain without sciatica, unspecified back pain laterality (Primary Dx) Start: 10-16-2024 End: 10-18-2024 Refjavier Steele MD Work Phone: [facility] Comment on above: 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 Start: 10-14-2024 End: 10-14-2024 ambulatory Daron Sanchez MD Facility:[facility] Start: 10-10-2024 End: 10-10-2024 Patient encounter [...] Department Unsolicited Start: 09-19-2024 End: 09-19-[address] [facility] Start: 09-18-2024 End: 09-18-2024 Subsequent hospital visit by physician Jessica Dobbins Admin Room 1 [facility] Comment on above: Lightheadedness; Chest discomfort; Palpitations; Mixed hyperlipidemia Paroxysmal supravent ricular tachycardia; Abnormal EKG; Palpitations Start: 09-18-2024 End: 09-18-2024 ambulatory [facility] Start: 09-16-2024 End: 09-16-2024 ambulatory Daron Sanchez MD Facility: [facility] Start: 09-10-2024 End: 09-11-2024 Refill Kamila Pride EXPORT COORDINATOR Work Phone: [facility] Comment on [...] 08-01-2024 End: 08-01-2024 Bamboo flowsheet Kamila Pride EXPORT COORDINATOR Work Phone: [facility] Start: 08-01-2024 End: 08-01-2024 Bamboo flowsheet Kamila Pride EXPORT COORDINATOR Work Phone: [facility] Start: 08-01-2024 End: 08-01-2024 Office outpatient visit 25 minutes Kamila Pride EXPORT COORDINATOR Work Phone: [facility] Comment on above: SOB (shortness of br eath) (Primary Dx); Chronic cough; Lumbosacral spondylosis without myelopathy; Seasonal allergic rhinitis, unspecified trigger; Age-related osteoporosis without current pathological fracture (CMS/HCC) Start: 08-01-2024 End: 08-01-2024 ambulatory KAMILA PRIDE Not Available Start: 07-26-2024 End: 07-26-2024 ambulatory KAMILA PRIDE Not Available Start: 07-18-2024 End: 07-18-2024 Clinisync Result Encounter Roc Steele MD Work Phone: [facility] External Department Unsolicited Start: 07-18-2024 End: 07-18-2024 Clinisync Result Encounter Roc Steele MD Work Phone: [facility] External Department Unsolicited Start: 07-15-2024 End: 07-15-2024 Office consultation new/estab patient 60 min Amber Hawley MD Work Phone: [facility] Comment on above: [facility]; Paroxysmal supraventricular tachycardia (CMS-HCC); Abnormal EKG; Lightheadedness; Chest discomfort; Palpitations; Primary hypertension; Stenosis of carotid artery, unspecified laterality; Mixed hyperlipidemia; Stage 3a chronic kidney disease (Multi); Gastroesophageal reflux disease without esophagitis; At high risk for falls; Uses roller walker; Severe obesity (BMI >= 40) (Multi); Never smoked cigarettes Start: 07-15-2024 End: 07-15-[address] [facility] Start: 07-11-2024 End: 07-11-2024 Assay of hemosiderin, quant Kamila Pride NP Work Phone: [facility] Start: 07-11-2024 End: 07-11-2024 Patient encounter procedure Kamila Pride NP Work Phone: [facility] Comment on above: Insomnia, unspecifie [...] 07-03-2024 End: 07-03-2024 Bamboo flowsheet Kamila Pride EXPORT COORDINATOR Work Phone: [facility] Start: 07-03-2024 End: 07-03-2024 Bamboo flowshien Pride EXPORT COORDINATOR Work Phone: [facility] Start: 07-03-2024 End: 07-03-2024 Office outpatient visit 25 minutes Kamila Pride EXPORT COORDINATOR Work Phone: [facility] Comment on above: Paroxysmal supravent ricular tachycardia (CMS/HCC) (Primary Dx); Primary insomnia; Acute congestive heart failure, unspecified heart failure type (CMS/HCC); Stage 3b chronic kidney disease (HCC) (CMS/HCC); Weakness; Other fatigue; Pain of right hip; Fall, initial encounter Start: 07-03-2024 End: 07-03-2024 ambulatory KAMILA PRIDE Not Available Start: 06-11-2024 End: 06-11-2024 Bamboo flowsheet Kamila Pride EXPORT COORDINATOR Work Phone: [facility] Start: 06-11-2024 End: 06-11-2024 Bamboo flowsheet Kamila Pride EXPORT COORDINATOR Work Phone: [facility] Start: 06-11-2024 End: 06-11-2024 Office outpatient visit 25 minutes Kamila Pride EXPORT COORDINATOR Work Phone: [facility] Comment on [...] 05-22-2024 End: 05-22-2024 Bamboo flowsheet Kamila Pride EXPORT COORDINATOR Work Phone: [facility] Start: 05-22-2024 End: 05-22-2024 Bamboo flowsheet Kamila Pride EXPORT COORDINATOR Work Phone: [facility] Start: 05-22-2024 End: 05-22-2024 Office outpatient visit 25 minutes Kamila Pride EXPORT COORDINATOR Work Phone: [facility] Comment on above: Stage 3b chronic kid javon disease (HCC) (CMS/HCC) (Primary Dx); Benign essential hypertension (CMS/HCC); Hypomagnesemia; Pneumonia of both lungs due to infectious organism, unspecified part of lung Start: 05-22-2024 End: 05-22-2024 ambulatory KAMILA PRIDE Not Available Start: 05-16-2024 End: 05-16-2024 Clinisync Result Encounter Kamila Pride EXPORT COORDINATOR Work Phone: [facility] Unsolicited Start: 05-16-2024 End: 05-16-2024 Clinisync Result Encounter Kamila Pride EXPORT COORDINATOR Work Phone: [facility] External Department Unsolicited Start: 05-15-2024 End: 05-15-2024 Office outpatient visit 25 minutes Kamila Pride EXPORT COORDINATOR Work Phone: [facility] Comment on [...] Office outpatient visit 25 minutes Kamila Pride EXPORT COORDINATOR Work Phone: [facility] Comment on [...] Start: 04-29-2024 End: 04-29-2024 ambulatory Mala Sapp Facility:[facility] Start: 04-15-2024 End: 04-16-2024 Refill Kamila Pride EXPORT COORDINATOR Work Phone: [facility] Comment on above: Primary insomnia Start: 04-04-2024 End: 04-04-2024 Orders Only Kamila Pride EXPORT COORDINATOR Work Phone: [facility] Comment on above: Acute pulmonary omid a (CMS/HCC) (Primary Dx); Hypokalemia Start: 04-03-2024 End: 04-03-2024 Bamboo flowsheet Kamila Pride EXPORT COORDINATOR Work Phone: [facility] Start: 04-03-2024 End: 04-03-2024 Bamboo flowsheet Kamila Pride EXPORT COORDINATOR Work Phone: [facility] Start: 04-03-2024 End: 04-03-2024 ambulatory KAMILA PRIDE Not Available Start: 04-03-2024 End: 04-03-2024 Office outpatient visit 25 minutes Kamila Pride EXPORT COORDINATOR Work Phone: [facility] Comment on above: Acute cough (Primary Dx); Rib pain; Fall, initial encounter; Shortness of breath; Lumbosacral spondylosis without myelopathy; Pain of right hand; Right wrist pain; Acute non-recurrent sinusitis of other sinus Start: 04-03-2024 End: 04-03-2024 ambulatory KAMILA PRIDE Not Available Start: 03-07-2024 End: 03-07-2024 Bamboo flowsheet Waqas Dugan DO [facility] Start: 03-07-2024 End: 03-07-2024 Bamboo flowsheet Waqas Dugan DO Work Phone: [facility] [employer] [facility] Start: 03-07-2024 End: 03-07-2024 Patient encounter procedure Bullopher Ritchie DO [facility] Comment on above: Carpal tunnel syndro me on left (Primary Dx) Start: 03-07-2024 End: 03-07-2024 ambulatory WAQAS DUGAN Not Available Start: 03-05-2024 End: 03-05-2024 Bamboo flowsheet Kamila Pride EXPORT COORDINATOR Work Phone: [facility] Start: 03-05-2024 End: 03-05-2024 Bamboo flowsheet Kamila Pride EXPORT COORDINATOR Work Phone: [facility] Start: 03-05-2024 End: 03-05-2024 Office outpatient visit 25 minutes Kamila Pride EXPORT COORDINATOR Work Phone: [facility] Comment on above: Cellulitis of finger of left hand (Primary Dx); Flu vaccine need; Numbness of hand; Encounter for screening mammogram for malignant neoplasm of breast; Lymphadenopathy; Axillary pain, left; Ankylosing spondylitis of thoracic region ([facility] Start: 03-05-2024 End: 03-05-2024 ambulatory KAMILA PRIDE [...] Comment on above: Benign essential hyp ertension ([facility] Start: 12-14-2023 End: 12-14-2023 ambulatory ALEX ALFREDO [...] 10-04-2022 Patient encounter procedure [facility] Work Phone: [facility] [place] Work Phone: Start: 10-04-[address] Roc Steele II Facility:[id number] Start: 09-05-2022 End: 09-05-[address] SARABJIT CORNEJO . Facility:[facility] Start: 09-03-2022 End: 09-03-2022 ambulatory SASHA DUTTA . Facility:[facility] Start: 06-06-2022 End: 06-07-[address] ROC STEELE Facility:[facility] Start: 12-16-2020 Patient encounter procedure Moen Weiss MD Work Phone: [facility] [place] Work Phone: Start: 11-25-2020 Chart Update Tasia Crawford Work Phone: [facility] [place] Work Phone: Start: 10-15-2020 Patient encounter procedure Carmen Bird MD Work Phone: [facility] [place] Work Phone: Start: 02-13-2020 Patient encounter procedure Tasia Bird [facility] [place] Work Phone: Start: 01-16-2020 Patient encounter procedure Tasia Bird [facility] [place] Work Phone: [...] 07-11-2024 Hemoglobin glycosyla isabel a1c Kamila Pride EXPORT COORDINATOR Work Phone: Start: 05-16-2024 ALL BASIC METABOLIC PANEL Kamila Pride EXPORT COORDINATOR Work Phone: Start: 05-12-2024 BLOOD CULTURE 1 Generic External Data Provider Start: 03-07-2024 End: 03-07-2024 Needle emg ea extremty w/paraspinl area complete Waqas Dugan DO Work Phone: Implantation of join t prosthesis Tasia Bird Plan of Treatment Date Care Activity Detail Author Start: 07-26-2029 Lipid panel Lipid Panel [facility] Start: 07-26-2026 Screening for osteoporosis Bone Density Scan [facility] Start: 09-18-2025 Echocardiography Echocardiogram [facility] Start: 05-16-2025 End: 05-16-2025 Patient encounter procedure 05/16/2025 2:00 PM EST Office Visit [facility] [address] [facility] [address] [place] [address] Amber Hawley MD [address] [facility] [address] [place] [address] [facility] Start: 12-30-2024 Influenza vaccination Influenza Vaccine (#1) [facility] Start: 12-19-2024 End: 12-19-2024 Patient encounter procedure 12/19/2024 3:00 PM EDT Procedure Visit [facility] [address] [facility] [address] [place] [address] Alex Alfredo DPM [address] [facility] [address] [place] [address] [facility] Start: 11-20-2024 End: 11-20-2024 Professional / ancillary services management 11/20/2024 2:00 PM EDT Ancillary Procedure [address] [phone] [facility] Start: 2024 End: 2024 Patient encounter procedure 2024 2:15 PM EDT Office Visit [address] [address] Amber Hawley MD [address] [address] [facility] Start: 2024 End: 2026 Holter monitor study Holter Or Event Vp Outcomes Cardiac Services Routine Palpitations Expected: 2024 (Approximate), Expires: 2026 [facility] Service Area Work Phone: Comment on above: Expected: 2024 (Approximate), Expi res: 2026 Start: 11-04-2024 End: 11-04-2024 Patient encounter procedure 11/04/2024 2:30 PM EDT Office Visit [address] [address] Amber Hawley MD [address] [address] [facility] Start: 10-30-2024 End: 10-30-2024 Patient encounter procedure 10/30/2024 11:30 AM EDT Office Visit [facility] [address] [facility] [address] [place] [address] Kamila Pride, EXPORT COORDINATOR [address] [facility] [address] [place] [address] [facility] Start: 10-16-2024 End: 10-16-2024 Patient encounter procedure [facility] Comment on above: Arrived Start: 10-10-2024 End: 10-10-2024 Patient encounter procedure 10/10/2024 3:00 PM EDT Procedure Visit [facility] [address] [facility] [address] [place] [id number] Alex Alfredo, DPM [address] [facility] [address] [place] [address] [facility] Start: 09-19-2024 End: 09-19-2024 Professional / ancillary services management 09/19/2024 1:00 PM EDT Ancillary Procedure [facility] [address] [facility] [address] [place] [address] [facility] Start: 09-19-2024 End: 09-19-2024 Patient encounter procedure Sangeetha Jiménez Start: 09-19-2024 Subsequent hospital visit by physician 09/19/2024 11:30 AM EDT Hospital Encounter Sangeetha Jiménez [address] [facility] [address] [place] [phone] [facility] Start: 09-18-2024 End: 09-18-2024 Patient encounter procedure Sangeetha Jiménez Start: 08-01-2024 End: 08-01-2024 Patient encounter procedure [facility] Comment on above: Arrived Start: 07-23-2024 End: 07-23-2024 Professional / ancillary services management 07/23/2024 11:30 AM EDT Ancillary Procedure [facility] [address] [facility] [address] [place] [id number] [facility] Start: 07-15-2024 End: 07-15-2025 Holter monitor study Holter Or Event Vp Outcomes Cardiac Services Routine Paroxysmal supraventricular tachycardia (CMS-HCC) Abnormal EKG Lightheadedness Chest discomfort Palpitations Expected: 07/15/2024 (Approximate), Expires: 07/15/2025 [facility] Work Phone: Comment on above: Expected: 07/15/2024 (Approximate), Expi res: 07/15/2025 Start: 07-15-2024 End: 07-15-2026 NM Heart Perfusion W stress and W radionuclide IV Nuclear Stress Test Cardiac Nuclear Medicine Routine Lightheadedness Chest discomfort Palpitations Mixed hyperlipidemia Expected: 07/15/2024 (Approximate), Expires: 07/15/2026 [facility] Work Phone: Comment on above: Expected: 07/15/2024 (Approximate), Expi res: 07/15/2026 Start: 07-15-2024 End: 07-15-2026 Heart Transthoracic Transthoracic Echo Complete Echocardiography Routine Paroxysmal supraventricular tachycardia ([facility]-HCC) Abnormal EKG Palpitations Expected: 07/15/2024 (Approximate), Expires: 07/15/2026 [facility] Service Area Work Phone: Comment on above: Expected: 07/15/2024 (Approximate), Expi res: 07/15/2026 Start: 07-11-2024 End: 07-11-2025 DXA Skeletal system Views for bone density DEXA bone density Imaging Routine Osteopenia of both hips Decreased estrogen level Expected: 07/11/2024, Expires: 07/11/2025 [facility] [employer] Work Phone: Comment on above: Expected: 07/11/2024, Expires: Start: 07-11-2024 End: 07-11-2025 Lipid 1996 panel - Serum or Plasma Lipid panel Lab Routine Hyperlipidemia, unspecified hyperlipidemia type (CMS/HCC) Medicare annual wellness visit, subsequent Expected: 07/11/2024 (Approximate), Expires: 07/11/2025 [facility] Healthcare Comment on above: Expected: 07/11/2024 (Approximate), Expi res: 07/11/2025 Start: 07-11-2024 End: 07-11-2025 Microalbumin/Creatinine panel in random Urine Microalbumin / creatinine, urine ratio Lab Routine IGT (impaired glucose tolerance) Expected: 07/11/2024 (Approximate), Expires: 07/11/2025 [facility] Healthcare Comment on above: Expected: 07/11/2024 (Approximate), Expi res: 07/11/2025 Start: 07-11-2024 End: 07-11-2024 Patient encounter procedure 07/11/2024 1:00 PM EDT Office Visit [facility] [address] [place] [phone] Kamila Pride NP [address] [place] [address] [facility] Start: 07-06-2024 Medicare Annual Wellness Visit Medicare Annual Wellness Visit (AWV) [facility] Start: 07-05-2024 Medicare Annual Wellness (AWV) Medicare Annual Wellness (AWV) [facility] Start: 07-03-2024 End: 07-03-2025 Comprehensive metabolic 2000 panel - Serum or Plasma Comprehensive metabolic panel Lab Routine Stage 3b chronic kidney disease (HCC) (CMS/HCC) Expected: 07/03/2024 (Approximate), Expires: 07/03/2025 [facility] Work Phone: Comment on above: Expected: 07/03/2024 (Approximate), Expi res: 07/03/2025 Start: 07-03-2024 End: 07-03-2025 Magnesium [Mass/volume] in Serum or Plasma Magnesium Lab Routine Stage 3b chronic kidney disease (HCC) (CMS/HCC) Weakness Other fatigue Expected: 07/03/2024 (Approximate), Expires: 07/03/2025 [facility] Healthcare Comment on above: Expected: 07/03/2024 (Approximate), Expi res: 07/03/2025 Start: 07-03-2024 End: 07-03-2025 XR Hip - right 3 Views XR hip right 2 or 3 views Imaging Routine Pain of right hip Fall, initial encounter Expected: 07/03/2024, Expires: 07/03/2025 [facility] Healthcare Comment on above: Expected: 07/03/2024, Expires: Start: 07-03-2024 End: 07-03-2024 Patient encounter procedure 07/03/2024 11:30 AM EST Office Visit [facility] [address] [place] [phone] Kamila Pride NP [address] [place] [address] Arrived [facility] Comment on above: Arrived Start: 06-11-2024 End: 06-11-2025 Natriuretic peptide B [Mass/volume] in Blood B-type natriuretic peptide Lab Routine Acute congestive heart failure, unspecified heart failure type ([facility]/HCC) Expected: 06/11/2024 (Approximate), Expires: 06/11/2025 [facility] Work Phone: Comment on above: Expected: 06/11/2024 (Approximate), Expi res: 06/11/2025 Start: 06-11-2024 End: 06-11-2024 Patient encounter procedure 06/11/2024 11:00 AM EST Office Visit [facility] [address] [place] [id number] Kamila Pride, EXPORT COORDINATOR [address] [place] [address] Arrived [facility] Comment on above: Arrived Start: 05-23-2024 End: 05-23-2024 Patient encounter procedure 05/23/2024 2:40 PM EST Procedure Visit [facility] [address] [place] [address] Alex Alfredo, DPM [address] [address] [facility] Start: 05-22-2024 End: 05-22-2025 CBC panel - Blood by Automated count CBC Lab Routine Stage 3b chronic kidney disease (HCC) ([facility]/HCC) Expected: 05/22/2024 (Approximate), Expires: 05/22/2025 [facility] [...] [address] [place] [address] Kamila Pride NP [address] [place] [address] Arrived [facility] Comment on above: Arrived Start: 05-16-2024 End: 05-16-2024 Patient encounter procedure 05/16/2024 1:00 PM EST Office Visit [facility] [address] [place] [address] Kamila Pride, EXPORT COORDINATOR [address] [place] [address] [facility] Start: 05-15-2024 End: 05-15-2025 [...] [address] [place] [address] Kamila Pride, EXPORT COORDINATOR [address] [place] [address] [facility] Start: 05-14-2024 End: 05-14-2024 Patient encounter procedure 05/14/2024 11:00 AM EST Office Visit [facility] [address] [place] [address] Kamila Pride EXPORT COORDINATOR [address] [place] [address] [facility] Start: 05-02-2024 End: 05-02-2024 Patient encounter procedure 05/02/2024 2:50 PM EST Procedure Visit [facility] [address] [place] [address] Alex Alfredo, DPM [address] [facility] [address] [place] [address] [facility] Start: 04-03-2024 [...] [address] [place] [address] Kamila Pride EXPORT COORDINATOR [address] [place] [address] Arrived [facility] Comment on above: Arrived Start: 03-07-2024 End: 03-07-2024 Patient encounter procedure 03/07/2024 11:00 AM EST Procedure Visit [facility] [address] [place] [address] Waqas Dugan, DO [address] [place] [address] Numbness of hand [facility] [address] [...] Visit [facility] [address] [facility] [address] [place] [id number] Kamila Pride EXPORT COORDINATOR [address] [facility] [address] [place] [address] [facility] Start: 02-22-2024 End: 02-22-2024 Patient encounter procedure [facility] Comment on above: Pain due to onychomycosis of toenails of both feet (Primary Dx) Start: 01-31-2024 Influenza vaccination Influenza Vaccine (#1) [facility] Comment on above: Postponed from 12/31/2023 (Other Medical Reasons) Start: 12-31-2023 COVID-19 Vaccine () COVID-19 Vaccine () [facility] Start: 09-01-2024 Influenza vaccination Influenza Vaccine (#1) [facility] Start: 07-27-2023 End: 07-27-2023 Patient encounter procedure 07/27/2023 3:30 PM EDT Procedure Visit [facility] [address] [facility] [address] [place] [address] Alex Alfredo, EJM [address] [address] [facility] Start: 06-30-2023 Medicare Annual Wellness (AWV) Medicare Annual Wellness (AWV) [facility] Start: 06-29-2023 End: 06-29-2023 Patient encounter procedure 06/29/2023 2:30 PM EST Office Visit [facility] [address] [facility] [address] [place] [address] Alex Alfredo DPM [address] [address] [facility] Start: 06-15-2023 End: 06-15-2023 Patient encounter procedure 06/15/2023 2:30 PM EST Office Visit [facility] [address] [place] [address] Alex Alfredo, DPM [address] [address] [facility] Start: 10-21-2022 Screening for osteoporosis Bone Density Scan [facility] Start: 10-17-2022 NPV, Provider: Roc Alvarado, Status: Pen, Time: 1:30 PM NPV, Provider: Roc Alvarado, Status: Hang, Time: 1:30 PM [facility] Work Phone: Start: 2021 RSV High Risk: (Elderly (60+) or Population) (1 - 1-dose 75+ series) RSV High Risk: (Elderly (60+) or Population) (1 - 1-dose 75+ series) [facility] Start: 01-29-2021 Creatinine measurement Creatinine Level [facility] Start: 01-29-2021 Diabetes mellitus screening Diabetes Screening [facility] Start: 01-29-2021 Potassium measurement Potassium Level [facility] Start: 01-07-2021 FUV, Provider: Tasia Bird, Status: Pen, Time: 2:15 PM FUV, Provider: Tasia Bird, Status: Pen, Time: 2:15 PM -[facility] Work Phone: Start: 12-03-2020 FUV, Provider: Tasia Bird, Status: Pen, Time: 12:45 PM FUV, Provider: Tasia Bird, Status: Pen, Time: 12:45 PM [facility] Work Phone: Start: 1968 DTaP/Tdap/Td Vaccines (1 - Tdap) DTaP/Tdap/Td Vaccines (1 - Tdap) [facility] Start: 1965 Urine screening for protein CKD: Urine Protein Screening [facility] Start: 1964 Diabetes mellitus screening Diabetes Screening [facility] Start: 1964 Hepatitis C screening Hepatitis C Screening [facility] Start: 1945 Echocardiography Echocardiogram [facility] Start: 1945 Lipid panel Lipid Panel [facility] BLOOD CULTURE 1 BLOOD CULTURE 1 Lab Routine 05/12/2024 8:10 PM EST [facility] End: 09-18-2024 NM Heart Perfusion W stress and W radionuclide IV [facility] Service Area Work Phone: Comment on above: Once for 1 Occurrences starting 09/19/19 until 09/18/2024 Immunizations Immunization Date Immunization Notes Care Provider Hao allred 03-05-2024 Influenza, High-dose Seasonal, Quadrivalent, Preservative Free Kamila Pride NP Work Phone: [facility] 03-05-2024 influenza virus vacc ine, unspecified formulation Amber Hawley MD Work Phone: [facility] Work Phone: 03-01-2023 Influenza, High-dose Seasonal, Quadrivalent, Preservative Free Alex Alfredo DPM Work Phone: [facility] 03-01-2023 influenza virus vacc ine, unspecified formulation Roc Steele MD Work Phone: [facility] 03-31-2022 Moderna Bivalent Pereira ster Vaccination Alex Alfredo DPM Work Phone: [facility] 03-23-2022 Influenza, High-dose Seasonal, Quadrivalent, Preservative Free Alex Alfredo DPM Work Phone: [facility] 01-28-2021 Influenza, Seasonal, Quadrivalent, Adjuvanted Alex Alfredo DPM Work Phone: [facility] 01-30-2020 influenza, injectabl e, quadrivalent, preservative free Alex Alfredo DPM Work Phone: [facility] 09-26-2019 zoster vaccine recombinant Alex Alfredo DPM Work Phone: [facility] 05-16-2019 zoster vaccine recombinant Alex Alfredo DPM Work Phone: [facility] 01-31-2018 influenza, high dose seasonal, preservative-free Alex Alfredo DPM Work Phone: [facility] 01-25-2017 influenza, high dose seasonal, preservative-free Alex Alfredo DPM Work Phone: [facility] 02-02-2016 influenza, injectabl e, quadrivalent, contains preservative Alex Alfredo DPM Work Phone: [facility] 02-07-2015 pneumococcal conjuga te vaccine, 13 valent Alex Alfredo DPM Work Phone: [facility] 01-30-2015 seasonal influenza, intradermal, preservative free Alex Alfredo DPM Work Phone: [facility] 02-07-2014 seasonal influenza, intradermal, preservative free Alex Alfredo DPM Work Phone: [facility] 12-11-2013 pneumococcal polysaccharide vaccine, 23 valent Alex Alfredo DPM Work Phone: [facility] 01-17-2012 zoster vaccine, live Zoya Alfredo DPM Work Phone: [facility] Healthcare Payers Date Payer Category Payer Private Health Insurance [id number] 2022 Unknown 2008 Medicare [id number] 2008 Medicare [id number] 1959 Medicare [id number] 1959 Unknown [id number] 1946 Unknown [id number] 2.16.84 0.1.203329.3.579.2.593 1946 Unknown [id number] 2.16.84 0.1.917319.3.579.2.593 1946 Unknown [id number] 2.16.84 0.1.478863.3.579.2.593 1946 Unknown [id number] 2.16.8 40.1.932287.3.579.2.1068 1946 Unknown [id number] 2.16.8 40.1.697603.3.579.2.1259 1946 Unknown [id number] 2.16.8 40.1.094566.3.579.2.1259 1946 Unknown [id number] 2.16.84 0.1.404979.3.579.2.1259 1946 Unknown [id number] 2.16.84 0.1.169100.3.579.2.1259 1946 Unknown [id number] 2.16.84 0.1.026777.3.579.2.1259 1946 Unknown [id number] 2.16.84 0.1.429110.3.579.2.1258 1946 Unknown [id number] 2.16.84 0.1.511080.3.579.2.1258 1946 Unknown [id number] 2.16.84 0.1.935043.3.579.2.1258 1946 Unknown [id number] 2.16.84 0.1.603980.3.579.2.1258 1946 Unknown [id number] 2.16.84 0.1.958682.3.579.2.1258 1946 Unknown [id number] 2.16.84 0.1.285583.3.579.2.1258 1946 Unknown [id number] 2.16.84 0.1.854991.3.579.2.1258 1946 Unknown [id number] 2.16.84 0.1.314398.3.579.2.1258 1946 Unknown [id number] 2.16.84 0.1.573957.3.579.2.1258 1946 Unknown [id number] 2.16.84 0.1.592103.3.579.2.1258 1946 Unknown [id number] 2.16.84 0.1.061667.3.579.2.1258 1946 Unknown [id number] 2.16.84 0.1.176067.3.579.2.1258 1946 Unknown [id number] 2.16.84 0.1.172326.3.579.2.1258 1946 Unknown [id number] 2.16.84 0.1.362495.3.579.2.1258 1946 Unknown [id number] 2.16.84 0.1.400440.3.579.2.1258 1946 Unknown [id number] 2.16.84 0.1.847828.3.579.2.1259 1946 Unknown [id number] 2.16.84 0.1.929337.3.579.2.1259 1946 Unknown [id number] 2.16. 840.1.722676.3.579.2.196 1946 Unknown [id number] 2.16. 840.1.004812.3.579.2.196 1946 Unknown [id number] 2.16. 840.1.880438.3.579.2.196 1946 Unknown [id number] 2.16. 840.1.543933.3.579.2.1244 1946 Unknown [id number] 2.16. 840.1.119966.3.579.2.1244 1946 Unknown [id number] 2.16. 840.1.368639.3.579.2.1244 1946 Unknown [id number] 2.16.8 40.1.153819.3.579.2.1246 1946 Unknown [id number] 2.16.8 40.1.006234.3.579.2.6 1946 Unknown [id number] 2.16.8 40.1.448555.3.579.2.6 1946 Unknown [id number] 2.16.8 40.1.846672.3.579.2.1246 1946 Unknown [id number] 2.16.8 40.1.624899.3.579.2.1246 1946 Unknown [id number] 2.16.8 40.1.904101.3.579.2.1246 Social History Date Type Detail Facility Start: [...] 09-18-2024 Exposure to SARS-CoV-2 (event) Not sure [facility] Start: 2024 Alcoholic beverage intake Ex-drinker (finding) [facility] Work Phone: NEGATED: Highlighted row - - -[facility] [place] Work Phone: Medical Equipment Procedure Code Equipment Code Equipment Original Text Equipment Identifier Dates Screw, Low Profile Hex, 6.5 X 15 Mm Case [id number] Start: 01-29-2020 Comment on above: Description: Convert ed from [facility]. Please see archived information for full log information. Screw, Low Profile Hex, 6.5 X 25 Mm Case [id number] Start: 01-29-2020 Comment on above: Description: Convert ed from [facility]. Please see archived information for full log information. Head, Femur V40 36mm +2.5mm Biolox Delta Case [id number] Start: 01-29-2020 Comment on above: Description: Convert ed from [facility]. Please see archived information for full log information. Stem, Femur 132d Sz 5 [place]ol[place] Ii Case [id number] Start: 01-29-2020 Comment on above: Description: Convert ed from [facility]. Please see archived information for full log information. Shell, Trident Ii, Clusterhole, [place] 52e Case [id number] Start: 01-29-2020 Comment on above: Description: Convert ed from [facility]. Please see archived information for full log information. Liners, Poly 36 X 10 D Trid Crossfire E Case [id number] Start: 01-29-2020 Comment on above: Description: Convert ed from [facility]. Please see archived information for full log information. Functional Status Date Assessment Result Facility 10-16-2024 Patient Health Questionnaire 2 item (PHQ-2) [Reported] [facility] 08-19-2024 Patient Health Questionnaire 2 item (PHQ-2) [Reported] [facility] NEGATED: Highlighted row Functional performance Functional status health issues are not documented [facility] [place] Work Phone: Mental Status Date Assessment Result Facility NEGATED: Highlighted row Cognitive function [Interpretation] Cognitive status health issues are not documented [facility] [place] Work Phone: Clinical Notes 06-01-2023 [...] INJECTION x7 NERVE BLOCK Left 03/26/2019 T12-L3 [place] TOTAL HIP ARTHROPLASTY Left Donald (01-29-2020 to 01-30-2020) RADIOFREQUENCY ABLATION Left 06/25/2019 [...] (NEURONTIN) 300 mg, 2 times daily HYDROcodone-acetaminophen (Hay) 5-325 mg tablet 1 tablet, Every 4 [...] XL (TOPROL-XL) 50 mg, oral, Every morning jajrcedgmopm-Fx-scmt-minerals tablet 1 tablet, Daily nortriptyline (PAMELOR) 30 [...] (241.3 mg elemental) tablet Holter Or Event Vp Outcomes 4. Mixed hyperlipidemia simvastatin (Zocor) 10 mg [...] the presence of Dr. Amber Hawley MD, [facility]. I, Dr. Amber Hawley MD, [facility], personally performed the services described in the documentation as scribed by Katty Iverson LPN in my presence, and confirm it is both accurate and complete. documented in this encounter [facility] Work Phone: 2024 Instructions Katty Alvarez LPN [...] instructions on exercise. documented in this encounter [facility] Work Phone: 10-17-2024 Telephone encounter Note Luma was seen yesterday called stating that her medication was not sent in yet. Please send meds to ddm in box elder [facility] 10-17-2024 Miscellaneous Notes Luma was seen yesterday called stating that her medication was not sent in yet. Please send meds to ddm in box elder documented in this encounter [facility] 10-16-2024 History of Present illness Narrative Images from the original note were not included. Subjective Patient ID: Luma Ribeiro is a 78 y.o. female who presents for No chief complaint on file.. Luma presents today for a 2 month follow [...] INJECTION x7 NERVE BLOCK Left 03/26/2019 T12-L3 [place] TOTAL HIP ARTHROPLASTY Left Donald (01-29-2020 to 01-30-2020) RADIOFREQUENCY ABLATION Left 06/25/2019 [...] follow-ups on file. documented in this encounter [facility] 10-10-2024 History of Present illness [...] min Stress: No Stress Concern Present (11/25/2022) Citizen Of [place] [employer] [employer] - Occupational Stress Questionnaire Feeling of Stress : Only a little Social Connections: Moderately Isolated (11/25/2022) Social Connection and Isolation Panel [NHANES] Frequency of Communication with Friends and Family: More than three times a week Frequency of Social Gatherings with Friends and Family: Once a week Attends [employer] Services: Never Active Member of Clubs or [...] Alex Alfredo DPM documented in this encounter [facility] 08-19-2024 History of Present illness Narrative Images from the original note were not included. HPI prolia injection Additional comments: Here for injection billed and shipped from [facility] Last edited by Katie Ritter LPN on 08/19/2024 11:24 AM. Subjective Patient ID: Luma Ribeiro is a 78 y.o. female who presents for prolia injection (Here for injection billed and shipped from [facility]) and Osteoporosis. Patient complains of osteoporosis. She [...] MOUTH TWICE DAILY 200 capsule 3 HYDROcodone-acetaminophen (Hay) 5-325 MG tablet Take 1 tablet by [...] INJECTION x7 NERVE BLOCK Left 03/26/2019 T12-L3 [place] TOTAL HIP ARTHROPLASTY Left Donald (01-29-2020 to 01-30-2020) RADIOFREQUENCY ABLATION Left 06/25/2019 [...] months (around 10/19/2024). documented in this encounter [facility] 08-01-2024 History of Present illness [...] min Stress: No Stress Concern Present (11/25/2022) Citizen Of [place] [employer] [employer] - Occupational Stress Questionnaire Feeling of Stress : Only a little Social Connections: Moderately Isolated (11/25/2022) Social Connection and Isolation Panel [NHANES] Frequency of Communication with Friends and Family: More than three times a week Frequency of Social Gatherings with Friends and Family: Once a week Attends [employer] Services: Never Active Member of Clubs or [...] Alex Alfredo DPM documented in this encounter [facility] 08-01-2024 History of Present illness Narrative Images from the original note were not included. Subjective Patient ID: Luma Ribeiro is a 78 y.o. female who presents for No chief complaint on file.. Luam presents today for an ongoing cough that [...] INJECTION x7 NERVE BLOCK Left 03/26/2019 T12-L3 [place] TOTAL HIP ARTHROPLASTY Left Donald (01-29-2020 to 01-30-2020) RADIOFREQUENCY ABLATION Left 06/25/2019 [...] lozenges. Lumbosacral spondylosis without myelopathy - HYDROcodone-acetaminophen (Hay) 5-325 MG tablet; Take 1 tablet by [...] directed. Age-related osteoporosis without current pathological fracture ([facility]) - denosumab (Prolia) 60 MG/ML solution prefilled syringe; Inject 1 mL (60 mg) under the skin 1 (one) time for 1 dose Avoid falls as you can fracture. Take calcium with vitamin D. If you get this medication from your insurance, call the office and we can give you the medication No follow-ups on file. documented in this encounter [facility] 07-15-2024 Note Normal sinus rhythm 93 bpm voltage criteria for left ventricular hypertrophy abnormal R wave progression, 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 Compared to EKG from December 2019, left axis deviation loss of lateral R waves were noted [facility] December 2019. [facility] 07-[facility] History of Present illness Narrative Images [...] wheeled walkers. Subjective : Was hospitalized at [facility] in May 2024. She was told she [...] Medical History: Cardiomegaly Diverticulosis 2012 Edema Glaucoma ([facility]) Heart disease, unspecified History of lumbar surgery [...] INJECTION x7 NERVE BLOCK Left 03/26/2019 T12-L3 [place] T[place] HIP ARTHROPLASTY Left Donald (01-29-2020 to 01-30-2020) RADIOFREQUENCY ABLATION Left 06/25/2019 [...] ALPRAZolam (XANAX) 0.25 mg, Nightly PRN HYDROcodone-acetaminophen (Hay) 5-325 mg tablet 1 tablet, Every 4 [...] occurred after the last office visit with nm May 2024 BUN 15 creatinine 1.04 GFR 55 sodium 137 potassium 4.7 liver enzymes normal GFR was 52 in June 2023 Assessment: 1. Encounter to establish care with new doctor ECG 12 Lead 2. Paroxysmal supraventricular tachycardia (CMS-HCC) Follow Up In Cardiology magnesium oxide (Mag-Ox) 400 mg (241.3 mg magnesium) tablet Transthoracic Echo Complete Holter Or Event Vp Outcomes 3. Abnormal EKG Transthoracic Echo Complete Holter Or Event Vp Outcomes 4. Lightheadedness Nuclear Stress Test Holter Or Event Vp Outcomes 5. Chest discomfort Nuclear Stress Test Holter Or Event Vp Outcomes 6. Palpitations Transthoracic Echo Complete Nuclear Stress Test Holter Or Event Vp Outcomes 7. Primary hypertension 8. Stenosis of carotid [...] accurate and complete. documented in this encounter [facility] Work Phone: 07-15-2024 Instructions Katty Alvarez LPN [...] instructions on exercise. documented in this encounter [facility] Work Phone: 07-11-2024 History of Present illness [...] Do you have a medical power of dental laboratory technology teacher?: Yes Who is your medical power of dental laboratory technology teacher?: Objective : BP 130/80 Pulse 87 Ht [...] 16. Morbid obesity due to excess calories ([facility]) Discussed goal of BMI < 30. Advised [...] this time. 22. Hyperlipidemia, unspecified hyperlipidemia type ([facility]) This is a chronic medical condition that [...] July 11, 2024 documented in this encounter [facility] 07-03-2024 History of Present illness [...] INJECTION x7 NERVE BLOCK Left 03/26/2019 T12-L3 [place] T[place] HIP ARTHROPLASTY Left Donald (01-29-2020 to 01-30-2020) RADIOFREQUENCY ABLATION Left 06/25/2019 [...] orders for this visit: Paroxysmal supraventricular tachycardia ([facility]/HCC) - Ambulatory referral to Cardiology; Future Awaiting cardiology appointment. She did not follow up with cardiology as she was supposed to when she got out of the hospital. New referral sent as she wants to go to the business management manager that her goes to. Primary insomnia - [...] congestive heart failure, unspecified heart failure type ([facility]/HCC) - Ambulatory referral to Cardiology; Future Awaiting cardiology appointment. She did not follow up with cardiology as she was supposed to when she got out of the hospital. New referral sent as she wants to go to the business management manager that her goes to. Stage 3b chronic [...] follow-ups on file. documented in this encounter [facility] 06-11-2024 History of Present illness [...] for 3 days and she called the network control supervisor nurse and they advised her to go [...] INJECTION x7 NERVE BLOCK Left 03/26/2019 T12-L3 [place] T[place] HIP ARTHROPLASTY Left Donald (01-29-2020 to 01-30-2020) RADIOFREQUENCY ABLATION Left 06/25/2019 [...] to follow up with Dr. Chavez in [facility]. Await his recommendations. She continue on [...] follow-ups on file. documented in this encounter [facility] 05-23-2024 History of Present illness Narrative Patient: Luma Ribeiro : 1945 PCP: Roc Stelee MD SUBJECTIVE Patient presents today with a [...] min Stress: No Stress Concern Present (11/25/2022) Citizen Of [place] [employer] - Occupational Stress Questionnaire Feeling of Stress : Only a little Social Connections: Moderately Isolated (11/25/2022) Social Connection and Isolation Panel [NHANES] Frequency of Communication with Friends and Family: More than three times a week Frequency of Social Gatherings with Friends and Family: Once a week Attends [employer] Services: Never Active Member of Clubs or [...] Alex Alfredo DPM documented in this encounter [facility] 05-22-2024 History of Present illness [...] INJECTION x7 NERVE BLOCK Left 03/26/2019 T12-L3 [place] T[place] HIP ARTHROPLASTY Left Donald (01-29-2020 to 01-30-2020) RADIOFREQUENCY ABLATION Left 06/25/2019 [...] follow-ups on file. documented in this encounter [facility] 05-15-2024 History of Present illness Narrative Images from the original note were not included. Subjective Patient ID: Luma Ribeiro is a 78 y.o. female who presents for A F/U FOR PNEUMONIA, CHF Luma presents today for F/U for pneumonia and CHF. Was admitted to [facility] on 05-12-24.She is feeling weak and SOB still. Home health has not started. Pt would benefit from Nursing, PT/OT, and aide. PT was diagnosed with generalized weakness, CHF, And pneumonia. She continues on Doxycycline. The hospital discharge pt with an order for Lasix prn. Pt educated on when to take a prn lasix. She verbalized understanding. The hospital set up [facility] but we will set pt up with Erik as they have a contract with [facility]. She is home bound due [...] INJECTION x7 NERVE BLOCK Left 03/26/2019 T12-L3 [place] TOTAL HIP ARTHROPLASTY Left Donald (01-29-2020 to 01-30-2020) RADIOFREQUENCY ABLATION Left 06/25/2019 [...] follow-ups on file. documented in this encounter [facility] 05-07-2024 History of Present illness [...] TWICE DAILY 200 capsule 3 [] HYDROcodone-acetaminophen (Hay) 5-325 MG tablet Take 1 tablet by [...] INJECTION x7 NERVE BLOCK Left 03/26/2019 T12-L3 [place] TOTAL HIP ARTHROPLASTY Left Donald (01-29-2020 to 01-30-2020) RADIOFREQUENCY ABLATION Left 06/25/2019 [...] Morbid (severe) obesity due to excess calories ([facility]/HCC) Body mass index (BMI) 45.0-49.9, adult ([facility]) Discussed goal of BMI < 30. Advised [...] follow-ups on file. documented in this encounter [facility] 04-16-2024 Telephone encounter Note OARRS reviewed, Rx sent into patient's pharmacy. [facility] 04-16-2024 Miscellaneous Notes OARRS reviewed, Rx sent into patient's pharmacy. documented in this encounter [facility] 04-03-2024 History of Present illness [...] breathing, coughing, lifting and movement. Treatments tried: Hay, cough syrup, muscle relaxer. The treatment provided [...] TWICE DAILY 200 capsule 3 [] HYDROcodone-acetaminophen (Hay) 5-325 MG tablet Take 1 tablet by [...] INJECTION x7 NERVE BLOCK Left 03/26/2019 T12-L3 [place] TOTAL HIP ARTHROPLASTY Left Donald (01-29-2020 to 01-30-2020) RADIOFREQUENCY ABLATION Left 06/25/2019 [...] breathing. Lumbosacral spondylosis without myelopathy - HYDROcodone-acetaminophen (Hay) 5-325 MG tablet; Take 1 tablet by [...] follow-ups on file. documented in this encounter [facility] 03-07-2024 Note Carpal tunnel syndro me, left, severe. Progressed substantially when compared to EDX evaluation in 2021. C8 radiculopathy, left, moderate. Progressed when compared to EDX evaluation in 2021 [facility] 03-07-2024 Note Carpal tunnel syndro me, left, severe. Progressed substantially when compared to EDX evaluation in 2021. C8 radiculopathy, left, moderate. Progressed when compared to EDX evaluation in 2021 [facility] 03-07-2024 History of Present illness Narrative Images from the original note were not included. Reason for Appointment: EMG Patient: Luma Ribeiro : 1945 EMG Computer: Callystro Referring Physician: Kamila Pride CNP EMG: PABLO sanipractic physician: Jimmy Gibson RT(R) Office Location: [place] Reason for EMG: c/o numbness/tingling in left hand/forearm especially in 2nd & 3rd digits, weakness in left hand. No hx of DM. Not on blood thinners. Comments: Procedure was explained to the patient who expressed understanding. Patient appeared to have tolerated the test well despite some discomfort due to the nature of the test. 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 documented in this encounter [facility] 02-29-2024 Telephone encounter Note OARRS reviewed, Rx sent into patient's pharmacy. [facility] 02-29-2024 Miscellaneous Notes OARRS reviewed, Rx sent into patient's pharmacy. Hydrocodone 325 DDM IN [place] She had an appt today for a med follow up with kamila but had to change it due to her not being in. She said she has about 6 pills left. She did reschedule her med follow up for next Monday. documented in this encounter [facility] 02-29-2024 Telephone encounter Note Hydrocodone 325 DDM IN [place] She had an appt today for a med follow up with kamila but had to change it due to her not being in. She said she has about 6 pills left. She did reschedule her med follow up for next Monday. [facility] 01-29-2024 Telephone encounter Note Amlodipine sent [facility] 01-29-2024 Miscellaneous Notes Amlodipine sent documented in this encounter [facility] 06-15-2023 History of Present illness [...] Diagnosis Date Cardiomegaly Diverticulosis 2013 Edema Glaucoma ([facility]) Heart disease, unspecified History of lumbar surgery multiple times HTN (hypertension) ([facility]) Hyperlipidemia ([facility]) Insomnia Lumbago Lumbosacral spondylosis without myelopathy Myalgia, [...] min Stress: No Stress Concern Present (11/25/2022) Citizen Of [place] [employer] - Occupational Stress Questionnaire Feeling of Stress : Only a little Social Connections: Moderately Isolated (11/25/2022) Social Connection and Isolation Panel [NHANES] Frequency of Communication with Friends and Family: More than three times a week Frequency of Social Gatherings with Friends and Family: Once a week Attends [employer] Services: Never Active Member of Clubs or [...] Patient may continue with conservative treatments including gxgo-zbd-hdqyqly anti-inflammatories and other treatments suggested today. Patient may want to be scheduled for surgical intervention in the near future. Patient have the right hallux subungual exostectomy with the lateral left hallux partial permanent nail avulsion in the near future Alex Alfredo DPM documented in this encounter [facility] 06-01-2023 History of Present illness [...] Diagnosis Date Cardiomegaly Diverticulosis 2013 Edema Glaucoma ([facility]) Heart disease, unspecified History of lumbar surgery multiple times HTN (hypertension) ([facility]) Hyperlipidemia ([facility]) Insomnia Lumbago Lumbosacral spondylosis without myelopathy Myalgia, [...] min Stress: No Stress Concern Present (11/25/2022) Citizen Of [place] [employer] - Occupational Stress Questionnaire Feeling of Stress : Only a little Social Connections: Moderately Isolated (11/25/2022) Social Connection and Isolation Panel [NHANES] Frequency of Communication with Friends and Family: More than three times a week Frequency of Social Gatherings with Friends and Family: Once a week Attends [employer] Services: Never Active Member of Clubs or [...] Patient may continue with conservative treatments including suvv-puu-mutaqns anti-inflammatories and other treatments suggested today. Patient [...] Alex Alfredo DPM documented in this encounter [facility] Healthcare Evaluation note Diagnosis Subungual exostosis of [...] Fall, initial encounter documented in this encounter [facility] HealthcareEvaluation note* Diagnosis Insomnia, unspecified [...] failure type (CMS/HCC) documented in this encounter [facility] HealthcareEvaluation note* Diagnosis Encounter to establish care with new doctor Paroxysmal supraventricular tachycardia ([facility]-HCC) Paroxysmal supraventricular tachycardia Abnormal EKG Nonspecific abnormal [...] Never smoked cigarettes documented in this encounter [facility] Work Phone: Evaluation note* Diagnosis Pain due to onychomycosis of toenails of both feet- Primary documented in this encounter [facility] HealthcareEvaluation note* Diagnosis SOB (shortness of breath)- Primary Shortness of breath Chronic cough Cough Lumbosacral spondylosis without myelopathy Seasonal allergic rhinitis, unspecified trigger Age-related osteoporosis without current pathological fracture (CMS/HCC) documented in this encounter [facility] HealthcareEvaluation note* Diagnosis Age-related osteoporosis without current pathological fracture (CMS/HCC)- Primary Osteopenia of both hips Chronic cough Cough documented in this encounter [facility] HealthcareEvaluation note* Diagnosis Lightheadedness Dizziness and giddiness Chest discomfort Other chest pain Palpitations Mixed hyperlipidemia documented in this encounter [facility] Work Phone: Evaluation note* Diagnosis Paroxysmal supraventricular tachycardia Abnormal EKG Nonspecific abnormal electrocardiogram (ECG) (EKG) Palpitations documented in this encounter [facility] Work Phone: Evaluation note* Diagnosis Pain due to onychomycosis of toenails of both feet- Primary documented in this encounter [facility] HealthcareEvaluation note* Diagnosis Acute low back pain without sciatica, unspecified back pain laterality- Primary documented in this encounter [facility] HealthcareEvaluation note* Diagnosis Lumbosacral spondylosis without myelopathy documented in this encounter [facility] HealthcareEvaluation note* Diagnosis Encounter to discuss test results- Primary Other specified counseling Uses roller walker Palpitations Mixed hyperlipidemia Chest discomfort Other chest pain CARO on CPAP Paroxysmal supraventricular tachycardia Never smoked cigarettes Body mass index (BMI) 40.0-44.9, adult (Multi) documented in this encounter [facility] Work Phone: History of Present illness NarrativeLuma is a 75-year-old female patient of Dr. Bird who is here for ultrasound-guided right intraarticular shoulder injection. She has a history of pain and discomfort. She was seen and evaluated and referred to me for first lifetime intraarticular shoulder injection, which the patient accepts[facility] Work Phone: History of Present illness [...] normal pronation supination wrist flexion extension and independent film maker strength. Distal pulses and sensation are intact. Limited forward flexion to about 25 degrees lateral abduction to about 15 unable to perform any external rotation but internal he can get to the small of her back. Herexam does not allow for much of a true Neer's Shelby or Shoup's test. * Diagnostics: See dictated report from today, previous outside CT scan report of the humerus reviewed, and is available in the [facility] chart. * Procedure: None * Assessment: [...] the patient's CT scan report reviewed in [facility] Other than the anterior medial dislocation and [...] grammatical areas may persist related to the eMindfulon software * Taniya Al MD * Office: * . -[facility] Work Phone: History of Present illness [...] Diagnosis Date Cardiomegaly Diverticulosis 2013 Edema Glaucoma ([facility]) Heart disease, unspecified History of lumbar surgery multiple times HTN (hypertension) ([facility] Hyperlipidemia ([facility]) Insomnia Lumbago Lumbosacral spondylosis without myelopathy Myalgia, unspecified site Myositis Occlusion and stenosis of unspecified carotid artery without mention of cerebral infarction CARO (obstructive sleep apnea) Osteoarthrosis unspecified wheteher generalized or localized. unspecified site Osteopenia Paroxysmal supraventricular tachycardia ([facility]) Medications: Current Outpatient Medications: ALPRAZolam (Xanax) 0.25 [...] min Stress: No Stress Concern Present (11/25/2022) Citizen [place] [employer] - Occupational Stress Questionnaire Feeling of Stress : Only a little Social Connections: Moderately Isolated (11/25/2022) Social Connection and Isolation Panel [NHANES] Frequency of Communication with Friends and Family: More than three times a week Frequency of Social Gatherings with Friends and Family: Once a week Attends [employer] Services: Never Active Member of Clubs or [...] 9 Alex Alfredo DPM [facility] Narrative* Other Medical (Routine) - Closed Specialty Diagnoses / Procedures Referred By Aminah beltran Referred To Contact Neurology Diagnoses Numbness of hand Procedures [place] OFFICE/OUTPATIENT NEW HIGH MDM 60 MINUTES Kamila Pride NP [address] [facility] [address] [place] [address] Phone: tel: fax: Waqas Dugan DO [address] [place] [address] Phone: tel: fax: Referral ID Status Reason Start Date Expiration Date V isits Requested Visits Authorized [id number] Closed Perform Procedure 03/05/2024 09/01/2024 1 1 [facility] N[facility]* Cardiac Stress Testing (Routine) - Authorized Specialty Diagnoses / Procedures Referred By Contac t Referred To Contact Radiology Diagnoses Lightheadedness Chest discomfort Palpitations Mixed hyperlipidemia Procedures Nuclear Stress Test CHG MYOCARDIAL SPECT MULTIPLE STUDIES Amber Hawley MD [address] [facility] [address] [place] [address] Phone: tel: fax: Referral ID Status Reason Start Date Expiration Date V isits Requested Visits Authorized [id number] Authorized 07/15/2024 07/15/2025 5 5 [facility] Work Phone: Reason for visit Narrative* Cardiac Stress Testing (Routine) - Authorized Specialty Diagnoses / Procedures Referred By Contac t Referred To Contact Radiology Diagnoses Lightheadedness Chest discomfort Palpitations Mixed hyperlipidemia Procedures Nuclear Stress Test CHG MYOCARDIAL SPECT MULTIPLE STUDIES Amber Hawley MD [address] [address] Phone: tel: fax: Referral ID Status Reason Start Date Expiration Date V isits Requested Visits Authorized [id number] Authorized 07/15/2024 07/15/2025 5 5 [facility] Work Phone: Reason for visit Narrative* CV Imaging (Routine) - Authorized Specialty Diagnoses / Procedures Referred By Contac t Referred To Contact Cardiology Diagnoses Paroxysmal supraventricular tachycardia Abnormal EKG Palpitations Procedures Transthoracic Echo Complete [place] ECHO TTHRC R-T 2D W/WOM-MODE COMPL SPEC&COLR D Amber Hawley MD [address] [address] Phone: tel: fax: Referral ID Status Reason Start Date Expiration Date Visits Requested Visits Authorized [id number] Authorized Perform Procedure 07/15/2024 07/15/2025 1 1 [facility] Work Phone: Chief Complaint * New problem * Right shoulder pain MP Refer : RT shoulder ultra sound guided injection* Right shoulder pain, here for injection. * MP Refer : RT shoulder ultra sound guided injection * RT shoulder * Ongoing issue * X rays PUBLIC HEALTH DIETITIAN today Summary Purpose Family History No Family [...] DATE CREATED AUTHOR AUTHOR'S ORGANIZ ATION 09/12/2022 [facility] DATE CREATED AUTHOR AUTHOR'S ORGANIZ ATION 10/09/2022 [facility] DATE CREATED AUTHOR AUTHOR'S ORGANIZ ATION 10/09/2022 [facility] DATE CREATED AUTHOR AUTHOR'S ORGANIZ ATION 05/01/2024 [facility] DATE CREATED AUTHOR AUTHOR'S ORGANIZ ATION 07/28/2024 [facility] DATE CREATED AUTHOR AUTHOR'S ORGANIZ ATION 10/19/2024 [facility] EPIC DATE CREATED AUTHOR AUTHOR'S ORGANIZ ATION 11/16/2024 [facility] DATE CREATED AUTHOR AUTHOR'S ORGANIZ ATION 11/22/2024 [facility] DATE CREATED AUTHOR AUTHOR'S ORGANIZ ATION 11/23/2024 [facility] Reason for Visit (unrecogniz ed section [...] 12 Lead Amber Hawley MD [address] [facility] [address] [place] [address] Phone: tel: fax: Referral ID Status Reason Start Date Expiration Date V isits Requested Visits Authorized [id number] Authorized 07/15/2024 07/15/2025 1 1 Reason Comments [...] Up In Cardiology Amber Hawley MD [address] [facility] [address] [place] [address] Phone: tel: fax: Amber Hawley MD [address] [facility] [address] [place] [address] Phone: tel: fax: Referral ID Status Reason Start Date Expiration Date V isits Requested Visits Authorized [id number] Authorized 07/15/2024 07/15/2025 1 1 Care Teams (unrecognized sec tion and content) [employer] Relationship Specialty Start Date End Date Roc Steele MD [address] [place] [address] PCP - ACO Reach 09/22/22 Roc Steele MD [address] [place] [address] PCP - General Internal Medicine 09/28/22 [employer] Relationship Specialty Start Date End Date Roc Steele MD [address] [place] [address] PCP - ACO Reach 09/22/22 Roc Steele MD [address] [place] [address] PCP - General Internal Medicine 09/28/22 [employer] Relationship Specialty Start Date End Date Roc Steele MD [address] [place] [address] PCP - ACO Reach 09/22/22 Roc Steele MD [address] [place] [address] PCP - General Internal Medicine 09/28/22 [employer] Relationship Specialty Start Date End Date Roc Steele MD [address] [place] [address] PCP - General Internal Medicine 09/28/22 Roc Steele MD [address] [place] [address] PCP - ACO Reach 08/30/23 [employer] Relationship Specialty Start Date End Date Roc Steele MD [address] [place] [address] PCP - General Internal Medicine 09/28/22 Roc Steele MD [address] [place] [address] PCP - ACO Reach 08/30/23 [employer] Relationship Specialty Start Date End Date Roc Steele MD [address] [place] [address] PCP - General Internal Medicine 09/28/22 Roc Steele MD [address] [place] [address] PCP - ACO Reach 08/30/23 [employer] Relationship Specialty Start Date End Date Roc Steele MD [address] [place] [address] PCP - General Internal Medicine 09/28/22 Roc Steele MD [address] [place] [address] PCP - ACO Reach 08/30/23 [employer] Relationship Specialty Start Date End Date Roc Steele MD [address] [place] [address] PCP - General Internal Medicine 09/28/22 Roc Steele MD [address] [place] [address] PCP - ACO Reach 08/30/23 [employer] Relationship Specialty Start Date End Date Roc Steele MD [address] [place] [address] PCP - General Internal Medicine 09/28/22 Roc Steele MD [address] [place] [address] PCP - ACO Reach 08/30/23 [employer] Relationship Specialty Start Date End Date Roc Steele MD [address] [place] [address] PCP - General Internal Medicine 09/28/22 Roc Steele MD [address] [place] [address] PCP - ACO Reach 08/30/23 Waqas Dugan DO [address] [place] [address] Referring Physician Neurology 03/07/24 [employer] Relationship Specialty Start Date End Date Roc Steele MD [address] [place] [address] PCP - General Internal Medicine 09/28/22 Roc Steele MD [address] [place] [address] PCP - ACO Reach 08/30/23 Waqas Dugan DO [address] [place] [address] Referring Physician Neurology 03/07/24 [employer] Relationship Specialty Start Date End Date Roc Steele MD [address] [place] [address] PCP - General Internal Medicine 09/28/22 Roc Steele MD [address] [place] [address] PCP - ACO Reach 08/30/23 Waqas Dugan DO [address] [place] [address] Referring Physician Neurology 03/07/24 [employer] Relationship Specialty Start Date End Date Roc Steele MD [address] [place] [address] PCP - General Internal Medicine 09/28/22 Roc Steele MD [address] [place] [address] PCP - ACO Reach 08/30/23 Waqas Dugan DO [address] [place] [address], [place] [address] Referring Physician Neurology 03/07/24 [employer] Relationship Specialty Start Date End Date Roc Steele MD [address] [place] [address] PCP - General Internal Medicine 09/28/22 Roc Steele MD [address] [place] [address] PCP - ACO Reach 08/30/23 Waqas Dugan DO [address] [place] [address] Referring Physician Neurology 03/07/24 [employer] Relationship Specialty Start Date End Date Roc Steele MD [address] [place] [address] PCP - General Internal Medicine 09/28/22 Roc Steele MD [address] [place] [address] PCP - ACO Reach 08/30/23 [employer] Relationship Specialty Start Date End Date Roc Steele MD [address] [place] [address] PCP - General Internal Medicine 09/28/22 Roc Steele MD [address] [place] [address] PCP - ACO Reach 08/30/23 Waqas Dugan DO [address] [place] [address] Referring Physician Neurology 03/07/24 [employer] Relationship Specialty Start Date End Date Roc Steele MD [address] [place] [address] PCP - General Internal Medicine 09/28/22 Roc Steele MD [address] [place] [address] PCP - ACO Reach 08/30/23 Waqas Dugan DO [address] [place] [address] Referring Physician Neurology 03/07/24 [employer] Relationship Specialty Start Date End Date Roc Steele MD [address] [place] [address] PCP - General Internal Medicine 09/28/22 Roc Steele MD [address] [place] [address] PCP - ACO Reach 08/30/23 Waqas Dugan DO [address] [place] [address] Referring Physician Neurology 03/07/24 [employer] Relationship Specialty Start Date End Date Roc Steele MD [address] [place] [address] PCP - General Internal Medicine 09/28/22 Roc Steele MD [address] [place] [address] PCP - ACO Reach 08/30/23 Waqas Dugan DO [address] [place] [address], [place] [address] Referring Physician Neurology 03/07/24 [employer] Relationship Specialty Start Date End Date Roc Steele MD [address] [place] [address] PCP - General Internal Medicine 09/28/22 Roc Steele MD [address] [place] [address] PCP - ACO Reach 08/30/23 Waqas Dugan DO [address] [place] [address] Referring Physician Neurology 03/07/24 [employer] Relationship Specialty Start Date End Date Roc Steele MD [address] [place] [address] PCP - General Internal Medicine 09/28/22 Roc Steele MD [address] [place] [address] PCP - ACO Reach 08/30/23 Waqas Dugan DO [address] [place] [address] Referring Physician Neurology 03/07/24 [employer] Relationship Specialty Start Date End Date Roc Steele MD [address] [place] [address] PCP - General Internal Medicine 09/28/22 Roc Steele MD [address] [place] [address] PCP - ACO Reach 08/30/23 Waqas Dugan DO [address] [place] [address], [place] [address] Referring Physician Neurology 03/07/24 [employer] Officer Relationship Specialty Start Date End Date Roc Steele MD [address] [place] [address] PCP - General Internal Medicine 09/28/22 Roc Steele MD [address] [place] [address] PCP - ACO Reach 08/30/23 Waqas Dugan DO [address] [place] [address] Referring Physician Neurology 03/07/24 Raya Holt, RN Clinical Advocate Family Medicine 06/07/24 [employer] Officer Relationship Specialty Start Date End Date Roc Steele MD [address] [place] [address] PCP - General Internal Medicine 09/28/22 Roc Steele MD [address] [place] [address] PCP - ACO Reach 08/30/23 Waqas Dugan DO [address] [place] [address] Referring Physician Neurology 03/07/24 Raya Holt, RN Clinical Advocate Family Medicine 06/07/24 [employer] Officer Relationship Specialty Start Date End Date Roc Steele MD [address] [place] [address] PCP - General Internal Medicine 09/28/22 Roc Steele MD [address] [place] [address] PCP - ACO Reach 08/30/23 Waqas Dugan DO [address] [place] [address] Referring Physician Neurology 03/07/24 Raya Holt, RN Clinical Advocate Family Medicine 06/07/24 [employer] Officer Relationship Specialty Start Date End Date Roc Steele MD [address] [place] [address] PCP - General Internal Medicine 09/28/22 Roc Steele MD [address] [place] [address] PCP - ACO Reach 08/30/23 Waqas Dugan DO [address] [place] [address] Referring Physician Neurology 03/07/24 Raya Holt RN Clinical Advocate Family Medicine 06/07/24 [employer] Officer Relationship Specialty Start Date End Date Roc Steele MD [address] [place] [address] PCP - General Internal Medicine 09/28/22 Roc Steele MD [address] [place] [address] PCP - ACO Reach 08/30/23 Waqas Dugan DO [address] [place] [address], [place] [address] Referring Physician Neurology 03/07/24 Raya Holt, CARMEN Clinical Advocate Family Medicine 06/07/24 [employer] Officer Relationship Specialty Start Date End Date Roc Steele MD [address] [place] [address] PCP - General 10/04/22 [employer] Officer Relationship Specialty Start Date End Date Roc Steele MD [address] [place] [address] PCP - General Internal Medicine 09/28/22 Roc Steele MD [address] [place] [address] PCP - ACO Reach 08/30/23 Waqas Dugan DO [address] [place] [address], [place] [address] Referring Physician Neurology 03/07/24 Gladis Laird LPN 07/19/24 [employer] Officer Relationship Specialty Start Date End Date Roc Steele MD [address] [place] [address] PCP - General Internal Medicine 09/28/22 Roc Steele MD [address] [place] [address] PCP - ACO Reach 08/30/23 Waqas Dugan DO [address] [place] [address] Referring Physician Neurology 03/07/24 Gladis Laird LPN 07/19/24 [employer] Officer Relationship Specialty Start Date End Date Roc Steele MD [address] [place] [address] PCP - General Internal Medicine 09/28/22 Roc Steele MD [address] [place] [address] PCP - ACO Reach 08/30/23 Waqas Dugan DO [address] [place] [address] Referring Physician Neurology 03/07/24 Gladis Laird LPN 07/19/24 [employer] Officer Relationship Specialty Start Date End Date Roc Steele MD [address] [place] [address] PCP - General Internal Medicine 09/28/22 Roc Steele MD [address] [place] [address] PCP - ACO Reach 08/30/23 Waqas Dugan DO [address] [place] [address] Referring Physician Neurology 03/07/24 Gladis Laird LPN 07/19/24 [employer] Relationship Specialty Start Date End Date Roc Steele MD [address] [place] [address] PCP - General Internal Medicine 09/28/22 Roc Steele MD [address] [place] [address] PCP - ACO Reach 08/30/23 Waqas Dugan DO [address] [place] [address] Referring Physician Neurology 03/07/24 Gladis Laird LPN 07/19/24 [employer] Officer Relationship Specialty Start Date End Date Roc Steele MD [address] [place] [address] PCP - General 10/04/22 [employer] Officer Relationship Specialty Start Date End Date Roc Steele MD [address] [place] [address] PCP - General 10/04/22 [employer] Officer Relationship Specialty Start Date End Date Roc Steele MD [address] [place] [address] PCP - General 10/04/22 [employer] Officer Relationship Specialty Start Date End Date Roc Steele MD [address] [place] [address] PCP - General Internal Medicine 09/28/22 Roc Steele MD [address] [place] [address] PCP - ACO Reach 08/30/23 Waqas Dugan DO [address] [place] [address] Referring Physician Neurology 03/07/24 Gladis Laird LPN 07/19/24 [employer] Officer Relationship Specialty Start Date End Date Roc Steele MD [address] [place] [address] PCP - General Internal Medicine 09/28/22 Roc Steele MD [address] [place] [address] PCP - ACO Reach 08/30/23 Waqas Dugan DO [address] [place] [address] Referring Physician Neurology 03/07/24 Gladis Laird LPN 07/19/24 [employer] Officer Relationship Specialty Start Date End Date Roc Steele MD [address] [place] [address] PCP - General Internal Medicine 09/28/22 Roc Steele MD [address] [place] [address] PCP - ACO Reach 08/30/23 Waqas Dugan DO [address] [place] [address], [place] [address] Referring Physician Neurology 03/07/24 Gladis Laird LPN [address] [place] [address] 07/19/24 [employer] Officer Relationship Specialty Start Date End Date Roc Steele MD [address] [place] [address] PCP - General Internal Medicine 09/28/22 Roc Steele MD [address] [place] [address] PCP - ACO Reach 08/30/23 Waqas Dugan DO [address] [place] [address] Referring Physician Neurology 03/07/24 Gladis Laird LPN [address] [place] [address] 07/19/24 [employer] Officer Relationship Specialty Start Date End Date Roc Steele MD [address] [place] [address] PCP - General Internal Medicine 09/28/22 Roc Steele MD [address] [place] [address] PCP - ACO Reach 08/30/23 Waqas Dugan DO [address] [place] [address] Referring Physician Neurology 03/07/24 Gladis Laird LPN [address] [place] [address] 07/19/24 [employer] Officer Relationship Specialty Start Date End Date Roc Steele MD [address] [place], [place] [address] PCP - General 10/04/22 FOR RECORDS PERTAINING [...] BE BASED ON THE PRIMARY CLINICAL RECORDS. [facility] [employer] [facility]. provides no warranty or guarantee of the accuracy or completeness of information in this document.
[2024-12-26] MEDS: OXYCODONE HCL 5 MG TABLET PO ×2 (18:45→22:38)
[2024-12-26] MEDS: GABAPENTIN 300 MG CAPSULE PO (20:49)
[2024-12-26] MEDS: DOCUSATE SODIUM 100 MG CAPSULE PO (20:49)
[2024-12-26] MEDS: TIZANIDINE HCL 4 MG TABLET 2 MG PO (20:49)
[2024-12-26] MEDS: ACETAMINOPHEN 325 MG TABLET 650 MG PO (20:49)
[2024-12-26] MEDS: ZOLPIDEM TARTRATE 10 MG TABLET PO (21:14)
[2024-12-26] MEDS: MORPHINE SULFATE 2 MG/ML SYRINGE IV (22:38)
[2024-12-27] VITALS (56 sets, daily range): BP systolic 107–155; BP diastolic 61–114; PULSE 66–88; TEMP 36.5–37.1; O2SAT 91–96
[2024-12-27] MEDS: TIZANIDINE HCL 4 MG TABLET 2 MG PO ×2 (04:24→20:55)
[2024-12-27] MEDS: OXYCODONE HCL 5 MG TABLET PO ×3 (04:24→20:55)
[2024-12-27 05:59] LABS: Hematocrit 39.1 % (36.0-48.0); Hemoglobin 12.7 g/dL (12.0-16.0); Immature Granulocytes Abs Auto 0.02 10^3/uL (0.00-0.03); Immature Granulocytes Pct Auto 0.3 % (0.0-0.5); Lymphocytes Absolute Auto 2.6 10^3/uL (1.2-3.8); Mean Corpuscular HGB Conc 32.5 g/dL (29.9-35.2); Mean Corpuscular Hemoglobin 32.1 pg (26.7-34.0); Mean Corpuscular Volume 98.7 fL (81.0-99.0); Platelet Count 192 10^3/uL (150-450); Red Blood Count 3.96 10^6/uL (4.20-5.40); White Blood Count 7.8 10^3/uL (4.0-11.0)
[2024-12-27 06:19] LABS: Alanine Aminotransferase 18 U/L (14-59); Albumin Globulin Ratio 0.9; Albumin Level 3.1 g/dL (3.4-5.0); Alkaline Phosphatase 84 U/L (46-116); Anion Gap 9.5; Aspartate Amino Transferase 21 U/L (15-37); Blood Urea Nitrogen 21.0 mg/dL (7.0-18.0); Calcium 8.6 mg/dL (8.5-10.1); Carbon Dioxide 30.0 mmol/L (21.0-32.0); Chloride 104 mmol/L (98-107); Estimated GFR (African America 56 (>=60 mL/min/1.73m^2); Estimated GFR (Non-African Ame 47 (>=60 mL/min/1.73m^2); Globulin 3.5 g/dL; Glucose 132 mg/dL (74-106); Potassium 4.5 mmol/L (3.5-5.1); Sodium 139 mmol/L (136-145); Total Protein 6.6 g/dL (6.4-8.2)
--- NOTE | 2024-12-27 07:00 | ECG_ITS ---
[facility] Test Date: 2024-12-27 Pat Name: LUMA RIBEIRO Department: Room: 2161 Gender: Female Group Captain: : [id number] Requested By: [id number] Order Number: [id number] Reading MD: SAUNDRA MCCULLOUGH M.D. Measurements Intervals [place] Rate: 74 P: 31 KS: 177 QRS: -33 QRSD: 112 T: -22 QT: 412 QTc: 460 Interpretive Statements SINUS RHYTHM MARKED LEFT AXIS DEVIATION [QRS AXIS < -30] PATTERN CONSISTENT WITH PULMONARY DISEASE MODERATE INTRAVENTRICULAR CONDUCTION DELAY [110+ ms QRS DURATION] VOLTAGE CRITERIA FOR LVH [MEETS CRITERIA IN ONE OF: R(aVL), S(V1), R(V5), R(V5/V6)+S(V1)] Compared to ECG 12/26/2024 15:47:57 Left-axis deviation now present Intraventricular conduction delay now present Electronically Signed On 01-01-2025 13:28:15 EDT by SAUNDRA MCCULLOUGH M.D.
[2024-12-27] MEDS: GABAPENTIN 300 MG CAPSULE PO ×2 (08:40→20:55)
[2024-12-27] MEDS: MAGNESIUM OXIDE 400 MG TABLET PO (08:40)
[2024-12-27] MEDS: CETIRIZINE HCL 10 MG TABLET PO (08:40)
[2024-12-27] MEDS: ALPRAZOLAM 0.25 MG TABLET PO (08:40)
[2024-12-27] MEDS: DOCUSATE SODIUM 100 MG CAPSULE PO ×2 (08:40→20:55)
[2024-12-27] MEDS: METOPROLOL SUCCINATE 100 MG TAB.ER.24H PO (08:40)
--- NOTE | 2024-12-27 10:05 | CM.NOTE ---
Rounds made with Dr. Singh, discussed with pt reason for admission and plan of care. Pt will go to OR today. Clarified status with Dr. Singh, pt inpatient status. No discharge today.
--- NOTE | 2024-12-27 11:13 | PM.HP ---
HPI H&P: HPI History of Present Illness Chief complaint: FALL, L ANKLE FX Narrative: Mrs. Walker is a 79-year-old female who fell down trying to exit her car and presented with left ankle pain. She was found to have left ankle fracture. The emergency room physician had discussed her case with timber poisoner Dr. Zepeda who recommended admission and the plan for surgical intervention tomorrow. Patient denies any other significant pain, ache or discomfort otherwise. No chest pain. No shortness of breath. No abdominal pain. No nausea or vomiting. Opioid HPI Opioid Management Most Recent Pain and Opioid Data: Last Pain Scale 6 Today, 08:40 Last Pain Intensity 8 05/18/24, 10:15 Last Pain Assessment 12/26/24, 17:09 Last MAR Pain Assessment 12/26/24, 12:43 Last ORT Total Score 0 12/26/24, 17:09 Last ORT Risk Category Low Risk 12/26/24, 17:09 Review of Systems ROS Status of ROS 10 or more systems reviewed and unremarkable except as noted in history and below [facility] Medical History Benign essential hypertension ?I10 - Essential (primary) hypertension (ICD-10) Chronic heart failure with preserved ejection fraction (HFpEF) ?I50.32 - Chronic diastolic (congestive) heart failure (ICD-10) Generalized weakness ?R53.1 - Weakness (ICD-10) Fall ?W19.XXXA - Unspecified fall, initial encounter (ICD-10) Pulmonary edema ?J81.1 - Chronic pulmonary edema (ICD-10) Closed head injury ?S09.90XA - Unspecified injury of head, initial encounter (ICD-10) Contusion of right knee ?S80.01XA - Contusion of right knee, initial encounter (ICD-10) Abrasion of elbow, right ?S50.311A - Abrasion of right elbow, initial encounter (ICD-10) Pneumonia ?J18.9 - Pneumonia, unspecified organism (ICD-10) Acute CHF (congestive heart failure) ?I50.9 - Heart failure, unspecified (ICD-10) Acute kidney injury ?N17.9 - Acute kidney failure, unspecified (ICD-10) Community acquired pneumonia ?J18.9 - Pneumonia, unspecified organism (ICD-10) GERD without esophagitis ?K21.9 - Gastro-esophageal reflux disease without esophagitis (ICD-10) Lump of left breast ?N63.20 - Unspecified lump in the left breast, unspecified quadrant (ICD-10) High cholesterol ?E78.00 - Pure hypercholesterolemia, unspecified (ICD-10) High blood pressure ?I10 - Essential (primary) hypertension (ICD-10) Anxiety ?F41.9 - Anxiety disorder, unspecified (ICD-10) Macular degeneration ?H35.30 - Unspecified macular degeneration (ICD-10) Degenerative disc disease Fibromyalgia ?M79.7 - Fibromyalgia (ICD-10) Right shoulder pain ?M25.511 - Pain in right shoulder (ICD-10) Sleep apnea ?G47.30 - Sleep apnea, unspecified (ICD-10) Surgical History Carpal tunnel syndrome, left ?G56.02 - Carpal tunnel syndrome, left upper limb (ICD-10) History of arthroplasty of right ankle ?Z96.661 - Presence of right artificial ankle joint (ICD-10) History of bilateral knee replacement ?Z96.653 - Presence of artificial knee joint, bilateral (ICD-10) History of right hip replacement ?Z96.641 - Presence of right artificial hip joint (ICD-10) Family History Mother Family history of CHF (congestive heart failure) Sister Family history of CHF (congestive heart failure) Son Family history of cancer Family history of diabetes mellitus Family history of hypertension Social History Within the past year, how often did you have a drink containing alcohol: never Score interpretation: A score less than 3 is consistent with normal alcohol consumption. Smoking status: Never smoker Non-prescribed substance use: denies use Previous occupational history: retired Highest level of school completed/degree received: GED or equivalent Are you now , , , , never or living with a partner: In a typical week, how many times do you talk on the telephone with family, friends, or neighbors: 3 or more times per week How often do you get together with friends or relatives: 3 or more times per week How often do you attend hinduism or gnosticism services: never Little interest or pleasure in doing things: not at all Feeling down, depressed, or hopeless: not at all Feel stressed/tense/nervous/anxious/difficulty sleeping: not at all Do you think of yourself as: straight/heterosexual Gender Identity: female Meds Home Medications and Allergies Home Medications ?Medication ?Instructions ?Recorded ?Confirmed ?Type hydrocodone 5 mg-acetaminophen 325 1 tab PO Q4H PRN pain 12/01/22 12/26/24 History mg tablet simvastatin 10 mg tablet 10 mg PO DAILY 12/01/22 12/26/24 History zolpidem 10 mg tablet 10 mg PO .QHS 12/01/22 12/26/24 History tizanidine 4 mg tablet 4 mg PO Q8H 05/12/24 12/26/24 History metoprolol succinate 50 mg 50 mg PO BID #0 tabs 05/14/24 12/26/24 Rx tablet,extended release 24 hr alprazolam 0.25 mg tablet 0.25 mg PO DAILY 12/26/24 12/26/24 History fexofenadine 180 mg tablet 180 mg PO DAILY 12/26/24 12/26/24 History (Radha Allergy) gabapentin 300 mg capsule 300 mg PO BID 12/26/24 12/26/24 History magnesium oxide 400 mg (241.3 mg 400 mg PO DAILY 12/26/24 12/26/24 History magnesium) tablet meloxicam 15 mg tablet 15 mg PO DAILY 12/26/24 12/26/24 History metoprolol succinate 100 mg 100 mg PO DAILY 12/26/24 12/26/24 History tablet,extended release 24 hr Allergies Allergy/AdvReac Type Severity Reaction Status Date / Time clarithromycin Allergy Severe Rash Verified 11/04/24 10:09 moxifloxacin (From Avelox) Allergy Severe tongue Verified 11/04/24 10:09 swelling Sulfa (Sulfonamide Allergy Unknown Unknown Verified 11/04/24 10:09 Antibiotics) ciprofloxacin (From Cipro) Allergy Rash Verified 11/04/24 10:09 Exam Narrative Exam Narrative: [pt is awake and alert. oriented to place, time and person, morbidly obese, central obesity HEENT: [place] conjunctiva and NL buccal mucosa Neck: Supple, no tenderness Endocrine: No Thyromegaly. Vascular: No JVD or carotid bruit. Lymphatic: No cervical lymphadenopathy. Chest: CTA no DTP. Heart RRR, no extra sound or murmur. Abd: Soft, no tenderness, no rebound and no rigidity. Increase abd girth therefore clinically I could not exclude the possibility of intra abd mass or organomegaly. LE: No cyanosis or clubbing, no varices or edema. Left ankle is in support device. Tender on palpation. Neuro: A A O. Nl speech, comprehension and attention. Nl and symetrical motor and tone examination through out. []] Constitutional Vital Signs, click to edit/add: Last Vital Signs Temp 97.8 F 12/27/24 07:21 Pulse 67 12/27/24 10:18 Resp 16 12/27/24 07:21 BP 138/68 12/27/24 07:21 Pulse Ox 94 L 12/27/24 07:21 O2 Del Method Room Air 12/27/24 07:21 O2 Flow Rate 3 12/26/24 12:55 Results Labs Labs: Short CBC 12/26/24 12/27/24 Range/Units 11:49 05:11 WBC 5.5 7.8 (4.0-11.0) 10^3/uL Hgb 13.6 12.7 (12.0-16.0) g/dL Hct 41.1 39.1 (36.0-48.0) % Plt Count 200 192 (150-450) 10^3/uL BMP 12/26/24 12/27/24 11:49 05:11 Sodium 140 139 Potassium 4.6 4.5 Chloride 104 104 Carbon Dioxide 32.7 H 30.0 BUN 19.0 H 21.0 H Creatinine 1.12 H 1.13 H Glucose 96 132 H Calcium 8.8 8.6 Liver Function 12/26/24 12/27/24 Range/Units 11:49 05:11 Total Bilirubin 0.6 0.5 (0.2-1.0) mg/dL AST 23 21 (15-37) U/L ALT 21 18 (14-59) U/L Alkaline Phosphatase 89 84 (46-116) U/L Albumin 3.3 L 3.1 L (3.4-5.0) g/dL Assessment and Plan Assessment and Plan (1) Chronic heart failure with preserved ejection fraction (HFpEF): (2) Abnormal electrocardiogram [ECG] [EKG]: (3) Bimalleolar ankle fracture: (4) Fall: (5) Hyperlipidemia: (6) Neuropathy: (7) CKD (chronic kidney disease): Plan Left ankle fracture To be addressed by timber poisoner. Defer further needed diagnostic and therapeutic invention relative to her ankle fracture including but not limited to needing to have surgery, ambulation instruction, monitoring wound care, pain management, pharmacological DVT prophy reaccess already progressed by podiatry team given their expertise and special subject matter. Preoperative medical clearance, risk stratification Patient denies having any chest pain or discomfort. Patient denies any shortness of breath. No clinical evidence of active angina. No clinical evidence of decompensated heart failure. Echocardiogram was done in May showed normal ejection fraction without any significant valvular disease. No clinical evidence of active neurological event CKD, at baseline Patient is medically optimized. Patient however continues to have increased risk of having cardiovascular, pulmonary and neurological complication during and postoperatively. No strong contraindication to proceed with surgical intervention at this time. Close monitoring of her condition postoperatively. Hypertension. Continue beta-federica CKD stage III Monitor electrolytes and volume status postoperatively Suspect vitamin D deficiency and osteoporosis. Requested to check 25-hydroxy vitamin D level. Recommend DEXA scan to be done in the outpatient setting to be arranged by PCP Chronic medical conditions not listed above, incidental findings seen on labs and imaging. These would need to be addressed. Could be addressed when time and condition are appropriate. Could be addressed in the outpatient setting by PCP collaboration with other needed outpatient providers. Urinary Catheter Management Urinary Catheter Management Urethral: Cath placed during this visit: yes Urethral indwelling: No Insertion date: 12/26/24 Insertion time: 15:10
--- OUTSIDE RECORDS SUMMARY | 2024-12-27 11:34 | XMS_ITS | Encounter Summary ---
Author Organization [facility] Address [address] [place] [address] Care Team Providers Care Beam Press Operator Name Role Phone Roc Steele MD Primary Care Provider [phone] Roc Steele MD Unavailable [phone] Luis Felipe Dugan DO Unavailable [phone] Raya Holt RN Unavailable [phone] Gladis Laird LPN Unavailable Encounter Details Date Type Department Care Team (Late st Contact Info) Description 06/27/2024 Abstract [facility] [place] [facility] [address] [facility] [address] [place] [address] Roc Steele MD [address] [facility] [address] [place] [address] Social History Tobacco Use Types Packs/Day Years [...] Recorded Patient Health Questionnaire-2 Score 0 07/06/2023 [facility] Occupat ional Health - Occupational Stress [...] EDT Procedure Visit [facility] [address] [facility] [address] [place] [id number] Alex Tam DPM [address] [facility] 5 [place] [address] documented as of this encounter Visit Diagnoses Not on filedocumented in this encounter Additional Health Concerns Assessment Noted Time PHQ-9 Depression Total Score: 0 07/06/19 24 3:00 PM EST documented as of this encounter Care Teams Beam Press Operator Relationship Specialty Start Date End Date Roc Steele MD [address] [place] [address] PCP - General Internal Medicine 09/28/22 Roc Steele MD [address] [facility] [address] [place] [address] PCP - ACO Reach 08/30/23 Luis Felipe Dugan DO [address] [place] [address] Referring Physician Neurology 03/07/24 Raya Holt, RN [address] [place] [address] Clinical Advocate Family Medicine 06/07/24 07/19/24 Gladis Laird LPN [address] [facility] [address] [place] [address] 07/19/24 documented as of this encounter
--- OUTSIDE RECORDS SUMMARY | 2024-12-27 11:35 | XMS_ITS | Encounter Summary ---
Author Organization [facility] Address [address] [place] [address] Care Team Providers Care Pecan Cleaner Name Role Phone Roc Steele MD Primary Care Provider [phone] Roc Steele MD Unavailable [phone] Bull Duganjulianojean-claude JORDAN Unavailable [phone] Gladis Laird LPN Unavailable Encounter Details Date Type Department Care Team (Late st Contact Info) Description 11/18/2024 Abstract [facility] [place] [facility] [address] [facility] [address] [place] [address] Roc Steele MD 112 [facility] 110 [place] [address] Social History Tobacco Use Types Packs/Day Years [...] often do you attend chur ch or faith services? Never 11/25/2022 Do you belong to [...] Recorded Patient Health Questionnaire-2 Score 0 10/16/2024 [facility]at ional [...] ([facility] st Contact Info) Description 01/02/2025 2:40 PM EDT Procedure Visit [facility] [address] [place] [id number] Alex Tam DPRen [address] [facility] 5 [place] [address] documented as of this encounter Visit Diagnoses Not on filedocumented in this encounter Additional Health Concerns Assessment Noted Time PHQ-9 Depression Total Score: 0 07/06/19 24 3:00 PM EST documented as of this encounter Care Teams Pecan Cleaner Relationship Specialty Start Date End Date Roc Steele MD [address] [facility] [address] [place], [place] [id number] PCP - General Internal Medicine 09/28/22 Roc Steele MD [address] [place] [address] PCP - ACO Reach 08/30/23 Luis Felipe Dugan DO [address] [place] [address] Referring Physician Neurology 03/07/24 Gladis Laird LPN [address] [place] [address] 07/19/24 documented as of this encounter
--- OUTSIDE RECORDS SUMMARY | 2024-12-27 11:35 | XMS_ITS | Encounter Summary ---
Author Organization [facility] Address [address] [place] [address] Care Team Providers Care Zinc Plate Cutter Name Role Phone Roc Steele MD Unavailable [phone] Roc Steele MD Primary Care Provider [phone] Roc Steele MD Unavailable [phone] Luis Felipe Dugan DO Unavailable [phone] Raya Holt RN Unavailable [phone] Gladis Laird LPN Unavailable Encounter Details Date Type Department Care Team (Late st Contact Info) Description 12/02/2022 Orders Only [facility] [place] [facility] [address] [place] [address] A, Unknown Practice [address] [place] [id number] Social History Tobacco Use Types Packs/Day Years [...] and heating? Not hard at all 11/25/2022 [facility] ional [facility] - [...] CI PODIATRY [address] [facility] 120 [place] [address] Alex Tam DPM [address] [facility] 5 [place] [address] documented as of this encounter Procedures Procedure [...] on filedocumented in this encounter Care Teams Zinc Plate Cutter Relationship Specialty Start Date End Date Roc Steele MD [address] [place] [address] PCP - ACO Reach 09/22/22 06/29/23 Roc Steele MD [address] [facility] 110 [place] [address] PCP - General Internal Medicine 09/28/22 Roc Steele MD [address] [facility] [address] [place] [address] PCP - ACO Reach 08/30/23 Luis Felipe Dugan DO [address] [place] [address] Referring Physician Neurology 03/07/24 Raya Holt, RN [address] [place] [address] Clinical Advocate Family Medicine 06/07/24 07/19/24 Gladis Laird LPN 112 [facility] 110 [place] [address] 07/19/24 documented as of this encounter
--- OUTSIDE RECORDS SUMMARY | 2024-12-27 11:35 | XMS_ITS | Encounter Summary ---
Author Organization [facility] Address [address] [place] [address] Care Team Providers Care Radiator Tester Name Role Phone Roc Steele MD Primary Care Provider [phone] Roc Steele MD Unavailable [phone] RitchieBulljulianojean-claude JORDAN Unavailable [phone] Gladis Laird LPN Unavailable Encounter Details Date Type Department Care Team (Late st Contact Info) Description 08/20/2024 Abstract [facility] [place] [facility] 112 [facility] 110 [place] [address] Roc Steele MD 112 [facility] 110 [place] [address] Social History Tobacco Use Types Packs/Day Years [...] often do you attend chur ch or pentecostalism services? Never 11/25/2022 Do you belong to [...] Recorded Patient Health Questionnaire-2 Score 0 08/19/2024 [facility] of Occupat ional Health - Occupational [...] EDT Procedure Visit [facility] [address] [place] [address] Alex Tam DPRen 3009 [facility] 5 [place] [address] documented as of this encounter Visit Diagnoses Not on filedocumented in this encounter Additional Health Concerns Assessment Noted Time PHQ-9 Depression Total Score: 0 07/06/19 24 3:00 PM EST documented as of this encounter Care Teams Radiator Tester Relationship Specialty Start Date End Date Roc Steele MD 112 [facility] [address] [place], [place] [id number] PCP - General Internal Medicine 09/28/22 Roc Steele MD [address] [place] [address] PCP - ACO Reach 08/30/23 Luis Felipe Dugan DO [address] [place] [address] Referring Physician Neurology 03/07/24 Gladis Laird LPN [address] [place] [address] 07/19/24 documented as of this encounter
--- OUTSIDE RECORDS SUMMARY | 2024-12-27 11:35 | XMS_ITS | Encounter Summary ---
Author Organization [facility] Address [address] [place] [address] Care Team Providers Care Integrity Specialist Name Role Phone Roc Steele MD Unavailable [phone] Roc Steele MD Primary Care Provider [phone] Roc Steele MD Unavailable [phone] Luis Felipe Dugan DO Unavailable [phone] Raya Holt RN Unavailable [phone] Gladis Laird LPN Unavailable Encounter Details Date Type Department Care Team (Late st Contact Info) Description 12/07/2022 Abstract [facility] [place] [facility] [address] [facility] 110 [place] [address] Roc Steele MD 112 [facility] 110 [place], [place] [address] Social History Tobacco Use Types Packs/Day Years [...] often do you attend chur ch or sabianism services? Never 11/25/2022 Do you belong to [...] Not hard at all 11/25/2022 [facility] of Occupat ional [...] Upcoming Encounters Date Type Department Care Team ([facility] Contact Info) Description 01/02/2025 2:40 PM EDT Procedure Visit [facility] [address] [facility] 120 [place] [address] Alex Tam DPM 3006 [facility] 5 [place] [address] documented as of this encounter Visit Diagnoses Not on filedocumented in this encounter Care Teams Integrity Specialist Relationship Specialty Start Date End Date Roc Steele MD [address] [facility] 110 [place] [address] PCP - ACO Reach 09/22/22 06/29/23 Roc Steele MD [address] [facility] 110 [place] [address] PCP - General Internal Medicine 09/28/22 Roc Steele MD [address] [facility] 110 [place] [address] PCP - ACO Reach 08/30/23 Luis Felipe Dugan DO [address] [place] [address] Referring Physician Neurology 03/07/24 Raya Holt, CARMEN [address] [place] [address] Clinical Advocate Family Medicine 06/07/24 07/19/24 Gladis Laird LPN [address] [facility] 110 [place] [address] 07/19/24 documented as of this encounter
--- OUTSIDE RECORDS SUMMARY | 2024-12-27 11:35 | XMS_ITS | Encounter Summary ---
Author Organization [facility] Address [address] [place] [address] Care Team Providers Care Propagation Manager Name Role Phone Roc Steele MD Primary Care Provider [phone] Roc Steele MD Unavailable [phone] Luis Felipe Dugan DO Unavailable [phone] Gladis Laird LPN Unavailable Encounter Details Date Type Department Care Team (Latest Contact Info) Description 12/03/2024 [facility] [address] [place] [address] [place] [address] MR LUMBAR SPINE WO CON Social History [...] Recorded Patient Health Questionnaire-2 Score 0 10/16/2024 [facility] of Occupat ionar Health - Occupational Stress Questionnaire Answer Date [...] ([facility] st Contact Info) Description 01/02/2025 2:40 PM EDT Procedure Visit [facility] 112 [facility] 120 [place] [address] Alex Tam DPM 3006 [facility] 5 [place] [address] documented as of this encounter Visit Diagnoses Not on filedocumented in this encounter Additional Health Concerns Assessment Noted Time PHQ-9 Depression Total Score: 0 07/06/19 24 3:00 PM EST documented as of this encounter Care Teams Propagation Manager Relationship Specialty Start Date End Date Roc Steele MD 112 [facility] 110 [place] [address] PCP - General Internal Medicine 09/28/22 Roc Steele MD [address] [facility] 110 [place] [address] PCP - ACO Reach 08/30/23 Luis Felipe Dugan DO [address] [place] [address] Referring Physician Neurology 03/07/24 Gladis Laird LPN [address] [facility] 110 [place] [address] 07/19/24 documented as of this encounter
--- OUTSIDE RECORDS SUMMARY | 2024-12-27 11:35 | XMS_ITS | Encounter Summary ---
Author Organization [facility] Address [address] [place] [address] Care Team Providers Care Transition Lead Name Role Phone Roc Steele MD Primary Care Provider [phone] Roc Steele MD Unavailable [phone] Luis Felipe Dugan DO Unavailable [phone] Raya Holt RN Unavailable [phone] Gladis Laird LPN Unavailable Encounter Details Date Type Department Care Team (Late st Contact Info) Description 06/04/2024 Abstract [facility] [place] [facility] [address] [facility] 110 [place] [address] Roc Steele MD [address] [facility] 110 [place] [address] Social History Tobacco Use Types Packs/Day Years [...] How often do you attend chur or buddhist services? Never 11/25/2022 Do you [...] Recorded Patient Health Questionnaire-2 Score 0 07/06/2023 [facility] of Occupat ional Health - Occupational Stress [...] EDT Procedure Visit [facility] 112 [facility] [address] 120 [place] [address] Alex Tam DPM 8563 [facility] 5 [place] [address] documented as of this encounter Visit Diagnoses Not on filedocumented in this encounter Additional Health Concerns Assessment Noted Time PHQ-9 Depression Total Score: 0 07/06/19 24 3:00 PM EST documented as of this encounter Care Teams Transition Lead Relationship Specialty Start Date End Date Roc Steele MD [address] [place] [address] PCP - General Internal Medicine 09/28/22 Roc Steele MD [address] [facility] 110 [place] [address] PCP - ACO Reach 08/30/23 Luis Felipe Dugan DO [address] [place] [address] Referring Physician Neurology 03/07/24 Raya Holt, RN [address] [place] [address] Clinical Advocate Family Medicine 06/07/24 07/19/24 Gladis Laird LPN [address] [facility] 110 [place] [address] 07/19/24 documented as of this encounter
--- OUTSIDE RECORDS SUMMARY | 2024-12-27 11:35 | XMS_ITS | Encounter Summary ---
Author Organization [facility] Address [address] [place] [address] Care Team Providers Care Pigment Supplier Name Role Phone Roc Steele MD Unavailable [phone] Roc Steele MD Primary Care Provider [phone] Roc Steele MD Unavailable [phone] Luis Felipe Dugan DO Unavailable [phone] Raya Holt RN Unavailable [phone] Gladis Laird LPN Unavailable Encounter Details Date Type Department Care Team (Late st Contact Info) Description 11/23/2022 Orders Only [facility] [place] [facility] [address] [place] [address] A, Unknown Practice [address] [place] [address] Social History Tobacco Use Types Packs/Day Years [...] often do you attend chur ch or gnosticist services? Never 11/25/2022 Do you [...] CI PODIATRY 112 [facility] 120 [place] [address] Alex Tam DPM 9102 [facility] 5 [place] [address] documented as of this encounter Procedures Procedure [...] on filedocumented in this encounter Care Teams Pigment Supplier Relationship Specialty Start Date End Date Roc Steele MD [address] [place] [address] PCP - ACO Reach 09/22/22 06/29/23 Roc Steele MD [address] [facility] 110 [place] [address] PCP - General Internal Medicine 09/28/22 Roc Steele MD [address] [place] [address] PCP - ACO Reach 08/30/23 Luis Felipe Dugan DO [address] [place] [address] Referring Physician Neurology 03/07/24 Raya Holt, CARMEN [address] [place] [address] Clinical Advocate Family Medicine 06/07/24 07/19/24 Gladis Laird LPN [address] [place] [address] 07/19/24 documented as of this encounter
--- OUTSIDE RECORDS SUMMARY | 2024-12-27 11:35 | XMS_ITS | Encounter Summary ---
Author Organization [facility] Address [address] [place] [address] Care Team Providers Care Chartered Accountant Name Role Phone Roc Steele MD Primary Care Provider [phone] Roc Steele MD Unavailable [phone] Luis Felipe Dugan DO Unavailable [phone] Raya Holt RN Unavailable [phone] Gladis Laird LPN Unavailable Encounter Details Date Type Department Care Team (Late st Contact Info) Description 05/07/2024 Abstract [facility] [place] [facility] [address] [facility] 110 [place] [address] Roc Steele MD [address] [facility] 110 [place] [address] Social History Tobacco Use Types Packs/Day Years [...] How often do you attend chur or caodaism services? Never 11/25/2022 Do you [...] Recorded Patient Health Questionnaire-2 Score 0 07/06/2023 [facility] of Occupat ional Health - Occupational Stress [...] EDT Procedure Visit [facility] 112 [facility] [address] [place] [address] Alex Tam DPM 4531 [facility] 5 [place] [address] documented as of this encounter Visit Diagnoses Not on filedocumented in this encounter Additional Health Concerns Assessment Noted Time PHQ-9 Depression Total Score: 0 07/06/19 24 3:00 PM EST documented as of this encounter Care Teams Chartered Accountant Relationship Specialty Start Date End Date Roc Steele MD [address] [place] [address] PCP - General Internal Medicine 09/28/22 Roc Steele MD [address] [facility] 110 [place] [address] PCP - ACO Reach 08/30/23 Luis Felipe Dugan DO [address] [place] [address] Referring Physician Neurology 03/07/24 Raya Holt, RN [address] [place] [address] Clinical Advocate Family Medicine 06/07/24 07/19/24 Gladis Laird LPN [address] [facility] 110 [place] [address] 07/19/24 documented as of this encounter
--- OUTSIDE RECORDS SUMMARY | 2024-12-27 11:35 | XMS_ITS | Encounter Summary ---
Author Organization [facility] Address [address] [place] [address] Care Team Providers Care Shape Hand Name Role Phone Roc Steele MD Primary Care Provider [phone] Roc Steele MD Unavailable [phone] Luis Felipe Dugan DO Unavailable [phone] Raya Holt RN Unavailable [phone] Gladis Laird LPN Unavailable Encounter Details Date Type Department Care Team (Late st Contact Info) Description 07/11/2024 Abstract [facility] [place] [facility] [address] [facility] 110 [place] [address] Roc Steele MD [address] [facility] 110 [place] [address] Social History Tobacco Use Types Packs/Day Years [...] How often do you attend chur or presybeterian services? Never 11/25/2022 Do you [...] Recorded Patient Health Questionnaire-2 Score 0 07/11/2024 [facility] of Occupat ional Health - Occupational Stress [...] [facility] [address] [place] [address] [place] [address] Alex Tam, DPM 3006 [facility] 5 [place] [address] documented as of this encounter Visit Diagnoses Not on filedocumented in this encounter Additional Health Concerns Assessment Noted Time PHQ-9 Depression Total Score: 0 07/06/19 24 3:00 PM EST documented as of this encounter Care Teams Shape Hand Relationship Specialty Start Date End Date Roc Steele MD [address] [facility] 110 [place] [address] PCP - General Internal Medicine 09/28/22 Roc Steele MD [address] [facility] 110 [place] [address] PCP - ACO Reach 08/30/23 Luis Felipe Dugan DO [address] [place], [place] [address] Referring Physician Neurology 03/07/24 Raya Holt, CARMEN [address] [place] [address] Clinical Advocate Family Medicine 06/07/24 07/19/24 Gladis Laird LPN 112 [place] [facility] 110 [place] [address] 07/19/24 documented as of this encounter
--- OUTSIDE RECORDS SUMMARY | 2024-12-27 11:35 | XMS_ITS | Encounter Summary ---
Author Organization [facility] Address [address] [place] [address] Care Team Providers Care Fashion Adviser Name Role Phone Roc Steele MD Unavailable [phone] Roc Steele MD Primary Care Provider [phone] Roc Steele MD Unavailable [phone] Luis Felipe Dugan DO Unavailable Raya Holt RN Unavailable Gladis Laird LPN Unavailable Encounter Details Date Type Department Care Team (Late st Contact Info) Description 10/07/2022 Orders Only [facility] [place] [facility] [address] [place] [address] Aarti Castillo, CUSTOMER SERVICE OFFICER [address] [place] [address] Social History Tobacco Use Types Packs/Day Years [...] PODIATRY [address] [place] [address] Alex Tam DPM 3006 [facility] 5 [place] [address] documented as of this encounter Procedures Procedure Name Priority Date/Time Associated Diagnosis Comments POLYSOMNOGRAPHY Routine 10/03/2022 9:04 AM EDT documented in this encounter Results * Polysomnography (10/03/2022 9:04 AM EDT) us Aarti Castillo CUSTOMER SERVICE OFFICER [facility] ORDERABLES Maggi l Result documented in this encounter Visit Diagnoses Not on filedocumented in this encounter Care Teams Fashion Adviser Relationship Specialty Start Date End Date Roc Steele MD [address] [place] [address] PCP - ACO Reach 09/22/22 06/29/23 Roc Steele MD [address] [place] [address] PCP - General Internal Medicine 09/28/22 Roc Steele MD [address] [place] [address] PCP - ACO Reach 08/30/23 Luis Felipe Dugan DO [address] [place] [address] Referring Physician Neurology 03/07/24 Raya Holt, CARMEN [address] [place] [address] Clinical Advocate Family Medicine 06/07/24 07/19/24 Gladis Laird LPN [address] [place] [address] 07/19/24 documented as of this encounter
--- OUTSIDE RECORDS SUMMARY | 2024-12-27 11:35 | XMS_ITS | Encounter Summary ---
Author Organization [facility] Address [address] [place] [address] Care Team Providers Care Energy Attorney Name Role Phone Roc Steele MD Unavailable [phone] Roc Steele MD Primary Care Provider [phone] Roc Steele MD Unavailable [phone] Luis Felipe Dugan DO Unavailable [phone] Raya Holt RN Unavailable [phone] Gladis Laird LPN Unavailable Encounter Details [...] and heating? Not hard at all 11/25/2022 [facility] of Occupat ional Health - Occupational [...] Upcoming Encounters Date Type Department Care Team ([facility] st Contact Info) Description 01/02/2025 2:40 PM EDT Procedure Visit [facility] 112 [facility] 120 [place] [address] Alex Tam DPM 3006 [facility] 5 [place] [address] documented as of this encounter Procedures Procedure Name Priority Date/Time Associated Diagnosis Comments ECG 12-LEAD 06/22/2023 2:24 PM EST documented in this encounter Results * ECG 12-LEAD (06/22/2023 2:24 PM EST) Anatomical Region Laterality Modality Other 06/22/2023 2:24 PM EST Narrative 06/22/2023 10:19 PM EST The [address] [address] Electrocardiograph Report Signed Patient: USHA WALKER MR#: [id number] : 1945 Acct:[id number] Age/Sex: 77 / F ADM Date: 06/22/23 Loc: LAB Attending Dr: ALEX TAM Ordering Physician: ALEX TAM Date of Service: 06/22/23 Procedure(s): ECG 12 lead Accession Number(s): [id number] cc: [facility] Test Date: 2023-06-22 Pat Name: USHA WALKER Department: Room: - Gender: Female Audit Tech: : 1945 Requested By: ALEX TAM Order Number: [id number] Reading MD: ELLIS DANIELSON Measurements Intervals [place] Rate: 84 P: 56 MD: 169 QRS: -28 QRSD: 118 T: 18 [...] D.O. Signed By: 06/22/23221806/22/232218 DD/ 1424 TD/TT: Spray Blender: Procedure Note Radiology, Radiologist, - 06/22/2023 [place] [address] Electrocardiograph Report Signed Patient: USHA WALKER KMR#: [id number] : 7Acct:[id number] Age/Sex: 77 / FADM Date: 06/22/23 Loc: LAB Attending Dr: ALEX TAM Ordering Physician: AELX TAM Date of Service: 06/22/23 Procedure(s): ECG 12 lead Accession Number(s): [id number] cc: [facility] Test Date: 2023-06-22 Pat Name: USHA WALEKR Department: Room: - Gender: Female Audit Tech: : 1945 Requested By: ALEX TAM Order Number: [id number] Reading MD: ELLIS DANIELSON Measurements Intervals [place] Rate: 84 P: 56 MD: 169 QRS: -28 QRSD: 118 T: 18 [...] Danielson D.O. Signed By:06/22/23221806/22/232218 DD/ 142 TD/TT: Spray Blender: Generic External Data Provider [facility] Final Result documented in this encounter Visit Diagnoses Not on filedocumented in this encounter Care Teams Energy Attorney Relationship Specialty Start Date End Date Roc Steele MD [address] [facility] 110 [place] [address] PCP - ACO Reach 09/22/22 06/29/23 Roc Steele MD [address] [facility] 110 [place] [address] PCP - General Internal Medicine 09/28/22 Roc Steele MD [address] [facility] 110 [place] [address] PCP - ACO Reach 08/30/23 Luis Felipe Dugan DO [address] [place] [address] Referring Physician Neurology 03/07/24 Raya Holt, RN [address] [place] [address] Clinical Advocate Family Medicine 06/07/24 07/19/24 Gladis Laird LPN [address] [facility] 110 [place] [address] 07/19/24 documented as of this encounter
--- OUTSIDE RECORDS SUMMARY | 2024-12-27 11:35 | XMS_ITS | Encounter Summary ---
Author Organization [facility] Address [address] [place] [address] Care Team Providers Care Cartridge Assembler Name Role Phone Roc Steele MD Unavailable [phone] Roc Steele MD Primary Care Provider [phone] Roc Steele MD Unavailable [phone] Luis Felipe Dugan DO Unavailable [phone] Raya Holt RN Unavailable [phone] Gladis Laird LPN Unavailable Encounter Details Date Type Department Care Team (Late st Contact Info) Description 03/02/2023 Abstract [facility] [place] [facility] [address] [facility] 110 [place] [address] Roc Steele MD 112 [facility] 110 [place], [place] [address] Social History Tobacco Use Types Packs/Day Years [...] and heating? Not hard at all 11/25/2022 [facility] of Occupat ional Health - Occupational [...] Upcoming Encounters Date Type Department Care Team ([facility] Contact Info) Description 01/02/2025 2:40 PM EDT Procedure Visit [facility] [address] [facility] 120 [place] [address] Alex Tam DPM 3006 [facility] 5 [place] [address] documented as of this encounter Visit Diagnoses Not on filedocumented in this encounter Care Teams Cartridge Assembler Relationship Specialty Start Date End Date Roc Steele MD [address] [facility] 110 [place] [address] PCP - ACO Reach 09/22/22 06/29/23 Roc Steele MD [address] [facility] [address] [place] [address] PCP - General Internal Medicine 09/28/22 Roc Steele MD [address] [facility] [address] [place] [address] PCP - ACO Reach 08/30/23 Luis Felipe Dugan DO [address] [place] [address] Referring Physician Neurology 03/07/24 Raya Holt, CARMEN [address] [place] [address] Clinical Advocate Family Medicine 06/07/24 07/19/24 Gladis Laird LPN [address] [facility] 110 [place] [address] 07/19/24 documented as of this encounter
--- OUTSIDE RECORDS SUMMARY | 2024-12-27 11:35 | XMS_ITS | Encounter Summary ---
Author Organization [facility] Address [address] [place] [address] Care Team Providers Care Cement Cutter Name Role Phone Roc Steele MD Primary Care Provider [phone] Roc Steele MD Unavailable [phone] Luis Felipe Dugan DO Unavailable [phone] Raya Holt RN Unavailable [phone] Gladis Laird LPN Unavailable Encounter Details Date Type Department Care Team (Late st Contact Info) Description 05/17/2024 Orders Only [facility] [place] [facility] [address] [place] [address] [place] [address] Unallocated, Noms Provider, [address] [place], [place] [address] Social History Tobacco Use Types Packs/Day Years [...] Recorded Patient Health Questionnaire-2 Score 0 07/06/2023 [facility] of Occupat ional Health - Occupational Stress [...] Encounters Date Type Department Care Team ([facility] st Contact Info) Description 01/02/2025 2:40 PM EDT Procedure Visit [facility] 112 [facility] 120 [place] [address] Alex Tam DPM 5514 [facility] 5 [place] [address] documented as of this encounter [...] documented as of this encounter Care Teams Cement Cutter Relationship Specialty Start Date End Date Roc Steele MD [address] [facility] 110 [place] [address] PCP - General Internal Medicine 09/28/22 Roc Steele MD [address] [facility] 110 [place] [address] PCP - ACO Reach 08/30/23 Luis Felipe Dugan DO [address] [place] [address] Referring Physician Neurology 03/07/24 Raya Holt, RN [address] [place] [address] Clinical Advocate Family Medicine 06/07/24 07/19/24 Gladis Laird LPN [address] [facility] 110 [place] [address] 07/19/24 documented as of this encounter
--- OUTSIDE RECORDS SUMMARY | 2024-12-27 11:35 | XMS_ITS | Encounter Summary ---
Author Organization [facility] Address [address] [place] [address] Care Team Providers Care Brim Flexer Name Role Phone Roc Steele MD Primary Care Provider [phone] Roc Steele MD Unavailable [phone] Luis Felipe Dugan DO Unavailable [phone] Raya Holt RN Unavailable [phone] Gladis Laird LPN Unavailable Encounter Details Date Type Department Care Team (Late st Contact Info) Description 07/02/2024 Abstract [facility] [place] [facility] [address] [facility] 110 [place] [address] Roc Steele MD [address] [facility] 110 [place] [address] Social History Tobacco Use Types Packs/Day Years [...] Recorded Patient Health Questionnaire-2 Score 0 07/03/2024 [facility] [place] of Occupat ional Health - Occupational Stress [...] [facility] [address] [place] [address] [place] [address] Alex Tam, DPM 9411 [facility] 5 [place] [address] documented as of this encounter Visit Diagnoses Not on filedocumented in this encounter Additional Health Concerns Assessment Noted Time PHQ-9 Depression Total Score: 0 07/06/19 24 3:00 PM EST documented as of this encounter Care Teams Brim Flexer Relationship Specialty Start Date End Date Roc Steele MD [address] [facility] 110 [place] [address] PCP - General Internal Medicine 09/28/22 Roc Steele MD [address] [facility] 110 [place] [address] PCP - ACO Reach 08/30/23 Luis Felipe Dugan DO [address] [place] [address] Referring Physician Neurology 03/07/24 Raya Holt, RN [address] [place] [address] Clinical Advocate Family Medicine 06/07/24 07/19/24 Gladis Laird LPN [address] [facility] 110 [place] [address] 07/19/24 documented as of this encounter
--- OUTSIDE RECORDS SUMMARY | 2024-12-27 11:35 | XMS_ITS | Encounter Summary ---
Author Organization [facility] Address [address] [place] [address] Care Team Providers Care Supply Chain Director Name Role Phone Roc Steele MD Primary Care Provider [phone] Roc Steele MD Unavailable [phone] Luis Felipe Dugan DO Unavailable [phone] Raya Holt RN Unavailable [phone] Gladis Laird LPN Unavailable Encounter Details Date Type Department Care Team (Late st Contact Info) Description 05/30/2024 Abstract [facility] [place] [facility] [address] [facility] 110 [place] [address] Roc Steele MD [address] [facility] [address] [place] [address] Social History Tobacco Use Types Packs/Day Years [...] any clubs o r organizations such as catholic groups, unions, fraternal or athletic groups, [...] Recorded Patient Health Questionnaire-2 Score 0 07/06/2023 [facility] [place] of Occupat ional Health - Occupational Stress [...] EDT Procedure Visit [facility] 112 [facility] [address] [place] [address] Alex Tam DPM 8837 [facility] 5 [place] [address] documented as of this encounter Visit Diagnoses Not on filedocumented in this encounter Additional Health Concerns Assessment Noted Time PHQ-9 Depression Total Score: 0 07/06/19 24 3:00 PM EST documented as of this encounter Care Teams Supply Chain Director Relationship Specialty Start Date End Date Roc Steele MD [address] [place] [address] [place] [address] PCP - General Internal Medicine 09/28/22 Roc Steele MD [address] [facility] [address] [place] [address] PCP - ACO Reach 08/30/23 Luis Felipe Dugan DO [address] [place] [address] Referring Physician Neurology 03/07/24 Raya Holt, RN [address] [place] [address] Clinical Advocate Family Medicine 06/07/24 07/19/24 Gladis Laird LPN [address] [facility] [address] [place] [address] 07/19/24 documented as of this encounter
--- OUTSIDE RECORDS SUMMARY | 2024-12-27 11:35 | XMS_ITS | Encounter Summary ---
Author Organization [facility] Address [address] [place] [address] Care Team Providers Care Permit Specialist Name Role Phone Roc Steele MD Primary Care Provider [phone] Roc Steele MD Unavailable [phone] Luis Felipe Dugan DO Unavailable [phone] Raya Holt RN Unavailable [phone] Gladis Laird LPN Unavailable Encounter Details Date Type Department Care Team (Late st Contact Info) Description 05/21/2024 Abstract [facility] [place] [facility] [address] [facility] 110 [place] [address] Roc Steele MD [address] [facility] [address] [place] [address] Social History Tobacco Use Types Packs/Day Years [...] How often do you attend chur or tenriism services? Never 11/25/2022 Do you belong to any clubs o r organizations such as worship groups, unions, fraternal or athletic groups, or [...] Recorded Patient Health Questionnaire-2 Score 0 07/06/2023 [facility] [place] of Occupat ional Health - Occupational Stress [...] PODIATRY 112 [facility] [address] [place] [address] Alex Tam DPM 7368 [facility] 5 [place] [address] documented as of this encounter Visit Diagnoses Not on filedocumented in this encounter Additional Health Concerns Assessment Noted Time PHQ-9 Depression Total Score: 0 07/06/19 24 3:00 PM EST documented as of this encounter Care Teams Permit Specialist Relationship Specialty Start Date End Date Roc Steele MD [address] [place] [address] [place] [address] PCP - General Internal Medicine 09/28/22 Roc Steele MD [address] [facility] [address] [place] [address] PCP - ACO Reach 08/30/23 Luis Felipe Dugan DO [address] [place] [address] Referring Physician Neurology 03/07/24 Raya Holt, RN [address] [place] [address] Clinical Advocate Family Medicine 06/07/24 07/19/24 Gladis Laird LPN [address] [facility] [address] [place] [address] 07/19/24 documented as of this encounter
--- OUTSIDE RECORDS SUMMARY | 2024-12-27 11:35 | XMS_ITS | Encounter Summary ---
Author Organization [facility] Address [address] [place] [address] Care Team Providers Care Shirt Folding Machine Operator Name Role Phone Roc Steele MD Primary Care Provider [phone] Roc Steele MD Unavailable [phone] RitchieBulljulianojean-claude JORDAN Unavailable [phone] Gladis Laird LPN Unavailable Encounter Details Date Type Department Care Team (Late st Contact Info) Description 07/23/2024 Abstract [facility] [place] [facility] [address] [facility] 110 [place] [address] Roc Steele MD 112 [facility] 110 [place] [address] Social History Tobacco Use Types Packs/Day Years [...] [facility] st Contact Info) Description 01/02/2025 2:40 PM EDT Procedure Visit [facility] [address] [place] [address] [place] [address] Alex Tam DPRen 3001 [facility] 5 [place] [address] documented as of this encounter Visit Diagnoses Not on filedocumented in this encounter Additional Health Concerns Assessment Noted Time PHQ-9 Depression Total Score: 0 07/06/19 24 3:00 PM EST documented as of this encounter Care Teams Shirt Folding Machine Operator Relationship Specialty Start Date End Date Roc Steele MD 112 [facility] [address] [place], [place] [address] PCP - General Internal Medicine 09/28/22 Roc Steele MD [address] [place] [address] [place] [address] PCP - ACO Reach 08/30/23 Luis Felipe Dugan DO [address] [place] [address] Referring Physician Neurology 03/07/24 Gladis Laird LPN [address] [place] [address] [place] [address] 07/19/24 documented as of this encounter
--- OUTSIDE RECORDS SUMMARY | 2024-12-27 11:35 | XMS_ITS | Encounter Summary ---
Author Organization [facility] Address [address] [place] [address] Care Team Providers Care Millwright Apprentice Name Role Phone Roc Steele MD Primary Care Provider [phone] Roc Steele MD Unavailable [phone] Luis Felipe Dugan DO Unavailable [phone] Raya Holt RN Unavailable [phone] Gladis Laird LPN Unavailable Encounter Details Date Type Department Care Team (Late st Contact Info) Description 05/30/2024 Abstract [facility] [place] [facility] [address] [facility] 110 [place] [address] Roc Steele MD [address] [facility] [address] [place] [address] Social History Tobacco Use Types Packs/Day Years [...] How often do you attend chur or buddhism services? Never 11/25/2022 Do you [...] Recorded Patient Health Questionnaire-2 Score 0 07/06/2023 [facility] [place] of Occupat ional Health - Occupational Stress [...] EDT Procedure Visit [facility] 112 [facility] [address] [place] [address] Alex Tam DPM 4182 [facility] 5 [place] [address] documented as of this encounter Visit Diagnoses Not on filedocumented in this encounter Additional Health Concerns Assessment Noted Time PHQ-9 Depression Total Score: 0 07/06/19 24 3:00 PM EST documented as of this encounter Care Teams Millwright Apprentice Relationship Specialty Start Date End Date Roc Steele MD [address] [place] [address] [place] [address] PCP - General Internal Medicine 09/28/22 Roc Steele MD [address] [facility] [address] [place] [address] PCP - ACO Reach 08/30/23 Luis Felipe Dugan DO [address] [place] [address] Referring Physician Neurology 03/07/24 Raya Holt, RN [address] [place] [address] Clinical Advocate Family Medicine 06/07/24 07/19/24 Gladis Laird LPN [address] [facility] 110 [place] [address] 07/19/24 documented as of this encounter
--- OUTSIDE RECORDS SUMMARY | 2024-12-27 11:35 | XMS_ITS | Encounter Summary ---
Author Organization [facility] Address [address] [place] [address] Care Team Providers Care Geothermal Sheet Metal Worker Name Role Phone Roc Steele MD Unavailable [phone] Roc Steele MD Primary Care Provider [phone] Roc Steele MD Unavailable [phone] Luis Felipe Dugan DO Unavailable [phone] Raya Holt RN Unavailable [phone] Gladis Laird LPN Unavailable Encounter Details Date Type Department Care Team (Late st Contact Info) Description 12/07/2022 Orders Only [facility] [place] [facility] [address] [place] [address] [place] [address] A, Unknown Practice [address] [place] [address] Social History Tobacco Use Types Packs/Day Years [...] EDT Procedure Visit [facility] [place] [facility] 112 [facility] 120 [place] [address] Alex Tam DPM 5737 [facility] 5 [place] [address] documented as of this encounter [...] on filedocumented in this encounter Care Teams Geothermal Sheet Metal Worker Relationship Specialty Start Date End Date Roc Steele MD [address] [facility] 110 [place] [address] PCP - ACO Reach 09/22/22 06/29/23 Roc Steele MD [address] [facility] 110 [place] [address] PCP - General Internal Medicine 09/28/22 Roc Steele MD [address] [facility] 110 [place] [address] PCP - ACO Reach 08/30/23 Luis Felipe Dugan DO [address] [place] [address] Referring Physician Neurology 03/07/24 Raya Holt, CARMEN [address] [place] [address] Clinical Advocate Family Medicine 06/07/24 07/19/24 Gladis Laird LPN [address] [facility] 110 [place] [address] 07/19/24 documented as of this encounter
--- OUTSIDE RECORDS SUMMARY | 2024-12-27 11:35 | XMS_ITS | Encounter Summary ---
Author Organization [facility] Address [address] [place] [address] [address] Lab Technician Name Role Phone Roc Steele MD Unavailable [phone] Roc Steele MD Primary Care Provider [phone] Roc Steele MD Unavailable [phone] Luis Felipe Dugan DO Unavailable [phone] Raya Holt RN Unavailable [phone] Gladis Laird LPN Unavailable Encounter Details [...] often do you attend chur ch or mu-ism services? Never 11/25/2022 Do you belong to [...] and heating? Not hard at all 11/25/2022 [facility] of Occupat ional Health - [...] Upcoming Encounters Date Type Department Care Team ([facility] st Contact Info) Description 01/02/2025 2:40 PM EDT Procedure Visit [facility] 112 [facility] 120 [place] [address] Alex Tam DPM 3006 [facility] 5 [place] [address] documented as of this encounter Procedures Procedure Name Priority Date/Time Associated Diagnosis Comments XR CHEST 2V 06/22/2023 3:17 PM EST documented in this encounter Results * XR CHEST 2V (06/22/2023 3:17 PM EST) Anatomical Region Laterality Modality Other 06/22/2023 3:17 PM EST Narrative 06/22/2023 3:19 PM EST The [address] [address] XRay Report Signed Patient: USHA WALKER MR#: [id number] : 1945 Acct:[id number] Age/Sex: 77 / F ADM Date: 06/22/23 Loc: LAB Attending Dr: ALEX TAM Ordering Physician: ALEX TAM Date of Service: 06/22/23 Procedure(s): XR chest 2V Accession Number(s): [id number] cc: ROC STEELE ; ALEX TAM The [address] [address] Patient Name: USHA WALKER MRN: [id number] date: 1945 Sex: F Assigned Patient Location: LAB Current Patient Location: LAB Accession/Order Number: [id number] Exam Date: 06/22/2023 14:05 Report Date: 06/22/2023 [...] Signed By: 06/22/23 1519 DD/ 1517 TD/TT: Makeup Artist: Procedure Note Radiology, Radiologist, MD - 06/22/2023 [place] [address] XRay Report Signed Patient: USHA WALKER KMR#: [id number] : 7Acct:[id number] Age/Sex: 77 / FADM Date: 06/22/23 Loc: LAB Attending Dr: ALEX TAM Ordering Physician: ALEX TAM Date of Service: 06/22/23 Procedure(s): XR chest 2V Accession Number(s): [id number] cc: ROC STEELE ; ALEX TAM [address] [address] Patient Name: USHA WALKER MRN: [id number] date: 1945 Sex: F Assigned Patient Location: LAB Current Patient Location: LAB Accession/Order Number: [id number] Exam Date: 06/22/2023 14:05 Report Date: 06/22/2023 [...] M.D. Signed By:06/22/23 1519 DD/ 1517 TD/TT: Makeup Artist: Generic External Data Provider [facility] Final Result documented in this encounter Visit Diagnoses Not on filedocumented in this encounter Care Teams Rd Lab Technician Relationship Specialty Start Date End Date Roc Steele MD [address] [facility] 110 [place] [address] PCP - ACO Reach 09/22/22 06/29/23 Roc Steele MD [address] [facility] 110 [place] [address] PCP - General Internal Medicine 09/28/22 Roc Steele MD [address] [place] [address] [place] [address] PCP - ACO Reach 08/30/23 Luis Felipe Dugan DO [address] [place] [address] Referring Physician Neurology 03/07/24 Raya Holt, RN [address] [place], [place] [address] Clinical Advocate Family Medicine 06/07/24 07/19/24 Gladis Laird LPN [address] [facility] 110 [place] [address] 07/19/24 documented as of this encounter
--- OUTSIDE RECORDS SUMMARY | 2024-12-27 11:35 | XMS_ITS | Encounter Summary ---
Author Organization [facility] Address [address] [place] [address] Care Team Providers Care Power Nut Runner Operator Name Role Phone Roc Steele MD Primary Care Provider [phone] Roc Steele MD Unavailable [phone] RitchieBulljulianojean-claude JORDAN Unavailable [phone] Gladis Laird LPN Unavailable Encounter Details Date Type Department Care Team (Late st Contact Info) Description 07/23/2024 Abstract [facility] [place] [facility] [address] [facility] 110 [place] [address] Roc Steele MD 112 [facility] 110 [place] [address] Social History Tobacco Use Types Packs/Day Years [...] any clubs o r organizations such as holiness groups, unions, fraternal or athletic groups, or [...] Recorded Patient Health Questionnaire-2 Score 0 07/11/2024 [facility] of Occupat ional Health - [...] EDT Procedure Visit [facility] [address] [place] [address] Alex Tam DPRen 3008 [facility] 5 [place] [address] documented as of this encounter Visit Diagnoses Not on filedocumented in this encounter Additional Health Concerns Assessment Noted Time PHQ-9 Depression Total Score: 0 07/06/19 24 3:00 PM EST documented as of this encounter Care Teams Power Nut Runner Operator Relationship Specialty Start Date End Date Roc Steele MD 112 [facility] [place] [place], [place] [address] PCP - General Internal Medicine 09/28/22 Roc Steele MD [address] [place] [address] PCP - ACO Reach 08/30/23 Luis Felipe Dugan DO [address] [place] [address] Referring Physician Neurology 03/07/24 Gladis Laird LPN [address] [place] [address] [place] [address] 07/19/24 documented as of this encounter
--- OUTSIDE RECORDS SUMMARY | 2024-12-27 11:35 | XMS_ITS | Encounter Summary ---
Author Organization [facility] Address [address] [place] [address] Care Team Providers Care It Audit Manager Name Role Phone Roc Steele MD Primary Care Provider [phone] Roc Steele MD Unavailable [phone] RitchieBulljulianojean-claude JORDAN Unavailable [phone] Gladis Laird LPN Unavailable Encounter Details Date Type Department Care Team (Late st Contact Info) Description 08/20/2024 Abstract [facility] [place] [facility] [address] [facility] 110 [place] [address] Roc Steele MD 112 [facility] 110 [place] [address] Social History Tobacco Use Types Packs/Day Years [...] often do you attend chur ch or baptist services? Never 11/25/2022 Do you belong to [...] ([facility] st Contact Info) Description 01/02/2025 2:40 PM EDT Procedure Visit [facility] [address] [place] [address] Alex Tam DPRen 3004 [facility] 5 [place] [address] documented as of this encounter Visit Diagnoses Not on filedocumented in this encounter Additional Health Concerns Assessment Noted Time PHQ-9 Depression Total Score: 0 07/06/19 24 3:00 PM EST documented as of this encounter Care Teams It Audit Manager Relationship Specialty Start Date End Date Roc Steele MD 112 [facility] [address] [place], [place] [address] PCP - General Internal Medicine 09/28/22 Roc Steele MD [address] [place] [address] PCP - ACO Reach 08/30/23 Luis Felipe Dugan DO [address] [place] [address] Referring Physician Neurology 03/07/24 Gladis Laird LPN [address] [place] [place] [address] 07/19/24 documented as of this encounter
--- OUTSIDE RECORDS SUMMARY | 2024-12-27 11:35 | XMS_ITS | Encounter Summary ---
Author Organization [facility] Address [address] [place] [address] Care Team Providers Care Invasive Cardiologist Name Role Phone Roc Steele MD Unavailable [phone] Roc Steele MD Primary Care Provider Roc Steele MD Unavailable [phone] Luis Felipe Dugan DO Unavailable Raya Holt RN Unavailable [phone] Gladis Laird LPN Unavailable Encounter Details Date Type Department Care Team (Late st Contact Info) Description 11/14/2022 Orders Only [facility] [place] [facility] [address] [place] [place] [address] Aarti Castillo, COST ENGINEER [address] [place] [address] Social History Tobacco Use Types Packs/Day Years [...] PODIATRY [address] [place] [address] Alex Tam DPM 3006 [facility] 5 [place] [address] documented as of this encounter Procedures Procedure Name Priority Date/Time Associated Diagnosis Comments HOME SLEEP TEST Routine 11/04/2022 8:25 AM EDT documented in this encounter Results * Home sleep test (11/04/2022 8:25 AM EDT) us Aarit Castillo [facility] ORDERABLES Maggi l Result documented in this encounter Visit Diagnoses Not on filedocumented in this encounter Care Teams Invasive Cardiologist Relationship Specialty Start Date End Date Roc Steele MD [address] [place] [address] PCP - ACO Reach 09/22/22 06/29/23 Roc Steele MD [address] [place] [address] PCP - General Internal Medicine 09/28/22 Roc Steele MD [address] [place] [address] PCP - ACO Reach 08/30/23 Luis Felipe Dugan DO [address] [place] [address] Referring Physician Neurology 03/07/24 Raya Holt, CARMEN [address] [place] [address] Clinical Advocate Family Medicine 06/07/24 07/19/24 Gladis Laird LPN [address] [place] [address] 07/19/24 documented as of this encounter
--- OUTSIDE RECORDS SUMMARY | 2024-12-27 11:35 | XMS_ITS | Encounter Summary ---
Author Organization [facility] Address [address] [place] [address] Care Team Providers Care Ship'S Pilot Name Role Phone Roc Steele MD Primary Care Provider [phone] Roc Steele MD Unavailable [phone] Luis Felipe Dugan DO Unavailable [phone] Raya Holt RN Unavailable [phone] Gladis Laird LPN Unavailable Encounter Details Date Type Department Care Team (Late st Contact Info) Description 06/25/2024 Abstract [facility] [place] [facility] [address] [facility] 110 [place] [address] Roc Steele MD [address] [facility] [address] [place] [address] Social History Tobacco Use Types Packs/Day Years [...] Recorded Patient Health Questionnaire-2 Score 0 07/06/2023 [facility] of Occupat ional Health - Occupational Stress [...] EDT Procedure Visit [facility] 112 [facility] [address] [place] [address] Alex Tam DPM 2147 [facility] [place] [address] documented as of this encounter Visit Diagnoses Not on filedocumented in this encounter Additional Health Concerns Assessment Noted Time PHQ-9 Depression Total Score: 0 07/06/19 24 3:00 PM EST documented as of this encounter Care Teams Ship'S Pilot Relationship Specialty Start Date End Date Roc Steele MD [address] [place] [address] PCP - General Internal Medicine 09/28/22 Roc Steele MD [address] [facility] [address] [place] [address] PCP - ACO Reach 08/30/23 Luis Felipe Dugan DO [address] [place] [address] Referring Physician Neurology 03/07/24 Raya Holt, RN [address] [place] [address] Clinical Advocate Family Medicine 06/07/24 07/19/24 Gladis Laird LPN [address] [facility] 110 [place] [address] 07/19/24 documented as of this encounter
--- OUTSIDE RECORDS SUMMARY | 2024-12-27 11:35 | XMS_ITS | Encounter Summary ---
Author Organization [facility] Address [address] [place] [address] Care Team Providers Care Vp Revenue Cycle Name Role Phone Roc Steele MD Unavailable [phone] Roc Steele MD Primary Care Provider [phone] Roc Steele MD Unavailable [phone] Luis Felipe Dugan DO Unavailable [phone] Raya Holt RN Unavailable [phone] Gladis Laird LPN Unavailable Encounter Details Date Type Department Care Team (Late st Contact Info) Description 12/07/2022 Abstract [facility] [place] [facility] [address] [facility] 110 [place] [address] Roc Steele MD [address] [facility] 110 [place], [place] [address] Social History Tobacco Use Types Packs/Day Years [...] often do you attend chur ch or zoroastrianism services? Never 11/25/2022 Do you belong to any clubs o r organizations such as muslim groups, unions, fraternal or athletic groups, or [...] and heating? Not hard at all 11/25/2022 [facility] - [...] Upcoming Encounters Date Type Department Care Team ([facility] Contact Info) Description 01/02/2025 2:40 PM EDT Procedure Visit [facility] [address] [facility] 120 [place] [address] Alex Tam DPM 3006 [facility] 5 [place] [address] documented as of this encounter Visit Diagnoses Not on filedocumented in this encounter Care Teams Vp Revenue Cycle Relationship Specialty Start Date End Date Roc Steele MD [address] [facility] 110 [place] [address] PCP - ACO Reach 09/22/22 06/29/23 Roc Steele MD [address] [facility] [address] [place] [address] PCP - General Internal Medicine 09/28/22 Roc Steele MD [address] [facility] 110 [place] [address] PCP - ACO Reach 08/30/23 Luis Felipe Dugan DO [address] [place] [address] Referring Physician Neurology 03/07/24 Raya Holt, CARMEN [address] [place] [address] Clinical Advocate Family Medicine 06/07/24 07/19/24 Gladis Laird LPN [address] [facility] 110 [place] [address] 07/19/24 documented as of this encounter
--- OUTSIDE RECORDS SUMMARY | 2024-12-27 11:35 | XMS_ITS | Encounter Summary ---
Author Organization [facility] Address [address] [place] [address] Care Team Providers Care Gas Manager Name Role Phone Roc Steele MD Unavailable [phone] Roc Steele MD Primary Care Provider [phone] Roc Steele MD Unavailable [phone] Luis Felipe Dugan DO Unavailable [phone] Raya Holt RN Unavailable [phone] Gladis Laird LPN Unavailable Encounter Details Date Type Department Care Team (Late st Contact Info) Description 03/01/2023 Abstract [facility] [place] [facility] [address] [facility] 110 [place] [address] Aarti Castillo, GEAR FINISHER [address] [facility] 110 [place], [place] [address] Social History Tobacco Use Types Packs/Day Years [...] and heating? Not hard at all 11/25/2022 [facility]tx [facility] - [...] Upcoming Encounters Date Type Department Care Team ([facility] Contact Info) Description 01/02/2025 2:40 PM EDT Procedure Visit [facility] [address] [facility] 120 [place] [address] Alex Tam DPM 3006 [facility] 5 [place] [address] documented as of this encounter Visit Diagnoses Not on filedocumented in this encounter Care Teams Gas Manager Relationship Specialty Start Date End Date Roc Steele MD [address] [facility] 110 [place] [address] PCP - ACO Reach 09/22/22 06/29/23 Roc Steele MD [address] [facility] 110 [place] [address] PCP - General Internal Medicine 09/28/22 Roc Steele MD [address] [facility] 110 [place], [place] [address] PCP - ACO Reach 08/30/23 Luis Felipe Dugan DO [address] [place] [address] Referring Physician Neurology 03/07/24 Raya Holt, RN [address] [place] [address] Clinical Advocate Family Medicine 06/07/24 07/19/24 Gladis Laird LPN [address] [facility] 110 [place] [address] 07/19/24 documented as of this encounter
--- OUTSIDE RECORDS SUMMARY | 2024-12-27 11:35 | XMS_ITS | Encounter Summary ---
Author Organization [facility] Address [address] [place] [address] Phone Care Team Providers Care Ion Exchange Operator Name Role Phone Roc Steele MD Primary Care Provider [phone] Encounter Details Date Type Department Care Team (Late st Contact Info) Description 07/03/2024 Scanned Document [facility] [address] [place] [id number] Scanning, Generic Provider Social History Tobacco Use [...] Description 04/28/2025 1:00 PM EST Ancillary Procedure [address] [place] [address] 05/16/2025 2:00 PM EST Office Visit [address] [place] [address] Amber Hawley MD [address] [facility] 130 [place] [address] documented as of this encounter Visit Diagnoses Not on filedocumented in this encounter Care Teams Ion Exchange Operator Relationship Specialty Start Date End Date Roc Steele MD 112 [facility] 110 [place] [address] PCP - General 10/04/22 documented as of this encounter
--- OUTSIDE RECORDS SUMMARY | 2024-12-27 11:35 | XMS_ITS ---
Author Organization [facility] Address [address] [place] [address] Care Team Providers Care Sales Solutions Associate Name Role Phone Roc Steele MD Primary Care Provider [phone] Roc Steele MD Unavailable [phone] Luis Felipe Dugan DO Unavailable [phone] Gladis Laird LPN Unavailable Chronic Care Management (CCM) Status:Enrolled (Active) Start date:07/30/2016 Enrollment date:07/30/2016 Overview 03/01/23, 9:16 AM - Lydiamonday, LARRY- Patient gives verbal consent to be enrolled in CCM Program and understands there could be a bill for this service. Case Team Name Relationship Phone Gladis Laird LPN(Responsible Staff) [phone] Continued Care and Services Coordination
--- OUTSIDE RECORDS SUMMARY | 2024-12-27 11:35 | XMS_ITS | Encounter Summary ---
Author Organization [facility] Address [address] [place] [address] Care Team Providers Care Fish Trapper Name Role Phone Roc Steele MD Primary Care Provider [phone] Roc Steele MD Unavailable [phone] Luis Felipe Dugan DO Unavailable [phone] Raya Holt RN Unavailable [phone] Gladis Laird LPN Unavailable Encounter Details Date Type Department Care Team (Late st Contact Info) Description 05/16/2024 Abstract [facility] [place] [facility] [address] [facility] 110 [place] [address] Roc Steele MD [address] [facility] 110 [place] [address] Social History Tobacco Use Types Packs/Day Years [...] Recorded Patient Health Questionnaire-2 Score 0 07/06/2023 [facility] [place] of Occupat ional Health - Occupational Stress [...] Procedure Visit [facility] [address] [facility] [address] [place] [address] Alex Tam DPM 6451 [facility] 5 [place] [address] documented as of this encounter Visit Diagnoses Not on filedocumented in this encounter Additional Health Concerns Assessment Noted Time PHQ-9 Depression Total Score: 0 07/06/19 24 3:00 PM EST documented as of this encounter Care Teams Fish Trapper Relationship Specialty Start Date End Date Roc Steele MD [address] [place] [address] [place] [address] PCP - General Internal Medicine 09/28/22 Roc Steele MD [address] [facility] [address] [place] [address] PCP - ACO Reach 08/30/23 Luis Felipe Dugan DO [address] [place] [address] Referring Physician Neurology 03/07/24 Raya Holt, RN [address] [place] [address] Clinical Advocate Family Medicine 06/07/24 07/19/24 Gladis Laird LPN [address] [facility] 110 [place] [address] 07/19/24 documented as of this encounter
--- OUTSIDE RECORDS SUMMARY | 2024-12-27 11:35 | XMS_ITS | Encounter Summary ---
Author Organization [facility] Address [address] [place] [address] Care Team Providers Care Medical Staff Assistant Name Role Phone Roc Steele MD Primary Care Provider [phone] Roc Steele MD Unavailable [phone] Luis Felipe Dugan DO Unavailable [phone] Raya Holt RN Unavailable [phone] Gladis Laird LPN Unavailable Encounter Details Date Type Department Care Team (Late st Contact Info) Description 06/10/2024 Orders Only [facility] [facility] [address] [place] [address] Unallocated, Noms Provider, [address] [place], [place] [address] Social History Tobacco Use Types Packs/Day Years [...] Recorded Patient Health Questionnaire-2 Score 0 07/06/2023 [facility] of Occupat ional Health - Occupational [...] PODIATRY 112 [facility] 120 [place] [address] Alex Tam DPM 4218 [facility] 5 [place] [address] documented as of this encounter [...] documented as of this encounter Care Teams Medical Staff Assistant Relationship Specialty Start Date End Date Roc Steele MD [address] [place] [address] PCP - General Internal Medicine 09/28/22 Roc Steele MD [address] [place] [address] PCP - ACO Reach 08/30/23 Luis Felipe Dugan DO [address] [place] [address] Referring Physician Neurology 03/07/24 Raya Holt, RN [address] [facility] [address] Clinical Advocate Family Medicine 06/07/24 07/19/24 Gladis Laird LPN [address] [place] [address] 07/19/24 documented as of this encounter
--- OUTSIDE RECORDS SUMMARY | 2024-12-27 11:35 | XMS_ITS | Encounter Summary ---
Author Organization [facility] Address [address] [place] [address] Care Team Providers Care Advertising Job Titles Name Role Phone Roc Steele MD Unavailable [phone] Roc Steele MD Primary Care Provider [phone] Roc Steele MD Unavailable [phone] Luis Felipe Dugan DO Unavailable [phone] Raya Holt RN Unavailable [phone] Gladis Laird LPN Unavailable Encounter Details Date Type Department Care Team (Late st Contact Info) Description 12/25/2022 Abstract [facility] [place] [facility] [address] [facility] 170 [place] [address] Josue Mayer, PT 112 [facility] 170 [place] [address] Social History Tobacco Use Types Packs/Day Years [...] any clubs o r organizations such as voodoo groups, unions, fraternal or athletic groups, or [...] and heating? Not hard at all 11/25/2022 [facility] of Occupat ional Health [...] Upcoming Encounters Date Type Department Care Team ([facility] Contact Info) Description 01/02/2025 2:40 PM EDT Procedure Visit [facility] [address] [facility] 120 [place] [address] Alex Tam DPM 3006 [facility] 5 [place] [address] documented as of this encounter Visit Diagnoses Not on filedocumented in this encounter Care Teams Advertising Job Titles Relationship Specialty Start Date End Date Roc Steele MD [address] [facility] 110 [place], [place] [address] PCP - ACO Reach 09/22/22 06/29/23 Roc Steele MD [address] [facility] 110 [place], [place] [address] PCP - General Internal Medicine 09/28/22 Roc Steele MD [address] [place], [place] [address] PCP - ACO Reach 08/30/23 Luis Felipe Dugan DO [address] [place] [address] Referring Physician Neurology 03/07/24 Raya Holt, RN [address] [place], [place] [address] Clinical Advocate Family Medicine 06/07/24 07/19/24 Gladis Laird LPN [address] [place] [address] 07/19/24 documented as of this encounter
--- OUTSIDE RECORDS SUMMARY | 2024-12-27 11:35 | XMS_ITS | Encounter Summary ---
Author Organization [facility] Address [address] [place] [address] Care Team Providers Care Abrasive Mixer Name Role Phone Roc Steele MD Primary Care Provider [phone] Roc Steele MD Unavailable [phone] RitchieBulljulianojean-claude JORDAN Unavailable [phone] Gladis Laird LPN Unavailable Encounter Details Date Type Department Care Team (Late st Contact Info) Description 07/24/2024 Abstract [facility] [place] [facility] [address] [facility] 110 [place] [address] Roc Steele MD 112 [facility] 110 [place] [address] Social History Tobacco Use Types Packs/Day Years [...] Recorded Patient Health Questionnaire-2 Score 0 07/11/2024 [facility] of Occupat ional Health [...] Upcoming Encounters Date Type Department Care Team ([facility] st Contact Info) Description 01/02/2025 2:40 PM EDT Procedure Visit [facility] [address] [place] [address] Alex Tam DPRen 3001 [facility] 5 [place] [address] documented as of this encounter Visit Diagnoses Not on filedocumented in this encounter Additional Health Concerns Assessment Noted Time PHQ-9 Depression Total Score: 0 07/06/19 24 3:00 PM EST documented as of this encounter Care Teams Abrasive Mixer Relationship Specialty Start Date End Date Roc Steele MD 112 [facility] [address] [place], [place] [address] PCP - General Internal Medicine 09/28/22 Roc Steele MD [address] [place] [address] PCP - ACO Reach 08/30/23 Luis Felipe Dugan DO [address] [place] [address] Referring Physician Neurology 03/07/24 Gladis Laird LPN [address] [place] [address] 07/19/24 documented as of this encounter
--- OUTSIDE RECORDS SUMMARY | 2024-12-27 11:35 | XMS_ITS | Encounter Summary ---
Author Organization [facility] Address [address] [place] [address] Care Team Providers Care Program Coordinator For Residence Life Name Role Phone Roc Steele MD Primary Care Provider [phone] Roc Steele MD Unavailable [phone] Luis Felipe Dugan DO Unavailable [phone] Raya Holt RN Unavailable [phone] Gladis Laird LPN Unavailable Encounter Details Date Type Department Care Team (Late st Contact Info) Description 05/20/2024 Abstract [facility] [place] [facility] [address] [facility] 110 [place] [address] Roc Steele MD [address] [facility] 110 [place] [address] Social History Tobacco Use Types Packs/Day Years [...] How often do you attend chur or sabianism services? Never 11/25/2022 Do you [...] Recorded Patient Health Questionnaire-2 Score 0 07/06/2023 [facility] [place] of Occupat ional Health - Occupational [...] CI PODIATRY 112 [facility] [address] 120 [place] [address] Alex Tam DPM 0651 [facility] 5 [place] [address] documented as of this encounter Visit Diagnoses Not on filedocumented in this encounter Additional Health Concerns Assessment Noted Time PHQ-9 Depression Total Score: 0 07/06/19 24 3:00 PM EST documented as of this encounter Care Teams Program Coordinator For Residence Life Relationship Specialty Start Date End Date Roc Steele MD [address] [place] [address] PCP - General Internal Medicine 09/28/22 Roc Steele MD [address] [facility] [address] [place] [address] PCP - ACO Reach 08/30/23 Luis Felipe Dugan DO [address] [place] [address] Referring Physician Neurology 03/07/24 Raya Holt, RN [address] [place] [address] Clinical Advocate Family Medicine 06/07/24 07/19/24 Gladis Laird LPN [address] [facility] 110 [place] [address] 07/19/24 documented as of this encounter
--- OUTSIDE RECORDS SUMMARY | 2024-12-27 11:35 | XMS_ITS | Encounter Summary ---
Author Organization [facility] Address [address] [place] [address] Care Team Providers Care Reacher Name Role Phone Roc Steele MD Primary Care Provider [phone] Roc Steele MD Unavailable [phone] Luis Felipe Dugan DO Unavailable [phone] Raya Holt RN Unavailable [phone] Gladis Laird LPN Unavailable Encounter Details Date Type Department Care Team (Late st Contact Info) Description 07/11/2024 Abstract [facility] [place] [facility] [address] [facility] 110 [place] [address] Roc Steele MD [address] [facility] 110 [place] [address] Social History Tobacco Use Types Packs/Day Years [...] How often do you attend chur or faith services? Never 11/25/2022 Do you [...] Recorded Patient Health Questionnaire-2 Score 0 07/11/2024 [facility] of Occupat ional Health - Occupational Stress [...] [facility] [address] [place] 120 [place] [address] Alex Tam, DPM 3006 [facility] 5 [place] [address] documented as of this encounter Visit Diagnoses Not on filedocumented in this encounter Additional Health Concerns Assessment Noted Time PHQ-9 Depression Total Score: 0 07/06/19 24 3:00 PM EST documented as of this encounter Care Teams Reacher Relationship Specialty Start Date End Date Roc Steele MD 112 [facility] 110 [place] [address] PCP - General Internal Medicine 09/28/22 Roc Steele MD [address] [facility] 110 [place] [address] PCP - ACO Reach 08/30/23 Luis Felipe Dugan DO [address] [place], [place] [address] Referring Physician Neurology 03/07/24 Raya Holt, CARMEN [address] [place] [address] Clinical Advocate Family Medicine 06/07/24 07/19/24 Gladis Laird LPN [address] [facility] 110 [place] [address] 07/19/24 documented as of this encounter
--- OUTSIDE RECORDS SUMMARY | 2024-12-27 11:35 | XMS_ITS | Clinical Summary ---
Author Organization [facility] Address [address] [place] [address], [address] [place] [address] Care Team Providers Care Placement Coordinator Name Role Phone Unavailable Primary Care Provider [...]
--- OUTSIDE RECORDS SUMMARY | 2024-12-27 11:35 | XMS_ITS | Encounter Summary ---
Author Organization [facility] Address [address] [place] [address] Care Team Providers Care Data Collection Associate Name Role Phone Roc Steele MD Primary Care Provider [phone] Roc Steele MD Unavailable [phone] Luis Felipe Dugan DO Unavailable [phone] Raya Holt RN Unavailable [phone] Gladis Laird LPN Unavailable Encounter Details Date Type Department Care Team (Late st Contact Info) Description 03/06/2024 Orders Only [facility] 703 [facility] 353 [place] [address] Aarti Castillo, SILVICULTURE TEACHER 112 [facility] 110 [place] [address] Social History Tobacco Use Types Packs/Day [...] Recorded Patient Health Questionnaire-2 Score 0 07/06/2023 [facility] of Occupat ional Health - Occupational Stress [...] EDT Procedure Visit [facility] 112 [facility] 120 [place] [address] Alex Tam DPM 3540 [facility] 5 [place] [address] documented as of this encounter Procedures Procedure Name Priority Date/Time Associated Diagnosis Comments EMG AND NERVE CONDUCTION STUDY Routine 07/28/2021 3:41 PM EDT documented in this encounter Results * EMG AND NERVE CONDUCTION STUDY (07/28/2021 3:41 PM EDT) us Aarti Castillo SILVICULTURE TEACHER NEUROLOGY ORDERABLES Final R esult documented in this encounter Visit Diagnoses Not on filedocumented in this encounter Additional Health Concerns Assessment Noted Time PHQ-9 Depression Total Score: 0 07/06/19 24 3:00 PM EST documented as of this encounter Care Teams Data Collection Associate Relationship Specialty Start Date End Date Roc Steele MD [address] [facility] 110 [place] [address] PCP - General Internal Medicine 09/28/22 Roc Steele MD [address] [facility] 110 [place] [address] PCP - ACO Reach 08/30/23 Luis Felipe Dugan DO [address] [place] [address] Referring Physician Neurology 03/07/24 Raya Holt, CARMEN [address] [place] [address] Clinical Advocate Family Medicine 06/07/24 07/19/24 Gladis Laird LPN [address] [facility] 110 [place] [address] 07/19/24 documented as of this encounter
--- OUTSIDE RECORDS SUMMARY | 2024-12-27 11:36 | XMS_ITS | Clinical Summary ---
Author Organization [facility] Address [address] [place] [address] Phone Care Team Providers Care Hydrologic Engineer Name Role Phone Roc Steele MD Primary Care Provider [phone] Allergies Active Allergy Reactions Criticality Noted Date Comments Moxifloxacin Angioedema 07/15/2024 Ciprofloxacin Unknown 07/15/2024 Sulfa (Sulfonamide Antibiotics) Unknown 06/29 Medications HYDROcodone-acetami nophen (Stoddard) 5-325 mg tablet Take 1 tablet by [...] as needed at bedtime for anxiety. Active xssxpbwkselx-Rp-zkc n-minerals tablet Take 1 tablet by mouth [...] Travel 2024 2:15 PM EDT Office Visit [address] [phone] Rc Kern MD Encounter to discuss test [...] Description 04/28/2025 1:00 PM EST Ancillary Procedure [address] [phone] 05/16/2025 2:00 PM EST Office Visit [address] [phone] Rc Kern MD [address] [facility] [address] [place] [address] Health Maintenance Due Date Last Done Comments [...] Sigmoidoscopy Discontinued Medical Devices Implanted Type Area Superior [employer] Judge Device Identifier Shelf Expiration Date Model / Serial / Lot Screw, Low Profile Hex, 6.5 X 15 Mm Case [id number] Implanted:Qty: 1 on 01/29/2020 by Micah Bird MD Implant Right: Hip HELENA Anedot 06/30/2023 [id number] / / 5MM Description:Converted from [facility]. Please see archived information for full log information. Screw, Low Profile Hex, 6.5 X 25 Mm Case [id number] Implanted:Qty: 1 on 01/29/2020 by Micah Bird MD Implant Right: Hip HELENA Anedot 06/01/2024 [id number] / / [id number] Description:Converted from [facility]. Please see archived information for full log information. Head, Femur V40 36mm +2.5mm Biolox Delta Case [id number] Implanted:Qty: 1 on 01/29/2020 by Micah Bird MD Joint Right: Hip HELENA Anedot 11/29/2024 [id number] / / [id number] Description:Converted from [facility]. Please see archived information for full log information. Stem, Femur 132d Sz 5 Accolade Ii Case [id number] Implanted:Qty: 1 on 01/29/2020 by Micah Bird MD Joint Right: Hip HELENA Anedot 09/29/2024 [id number] / / [id number] Description:Converted from [facility]. Please see archived information for full log information. Shell, Trident Ii, Clusterhole, Shel[place] 52e Case [id number] Implanted:Qty: 1 on 01/29/2020 by Micah Bird MD Joint Right: Hip HELENA Anedot 06/30/2023 [id number] / / [id number] Description:Converted from [facility]. Please see archived information for full log information. Liners, Poly 36 X 10 D Trid Crossfire E Case [id number] Implanted:Qty: 1 on 01/29/2020 by Micah Bird MD Joint Right: Hip Hortor 10/30/2023 [id number] / / [id number] Description:Converted from [facility]. Please see archived information for [...] Narrative SYNGO - 09/18/2024 6:10 PM EDT [address], Suite [facility], [place] [address] TRANSTHORACIC ECHOCARDIOGRAM REPORT Patient Name: USHA Deal Physician: [id number] David Castle MD, [facility] Study Date: 09/18/2024 Ordering Provider: [id number] RC KERN MRN/PID: [id number] Fellow: Nurse: Date of /Age: 7 1945 Central Scheduler: Viry Quigley years RDCS, RVT Gender Assigned at F Additional Staff: : Height: 162.56 cm Admit Date: Weight: 122.02 kg Admission Status: Outpatient BSA / BMI: 2.22 m2 / 46.17 Department Location: [facility] kg/m2 [place] Blood Pressure: 124 /86 mmHg Study Type: TRANSTHORACIC ECHO (TTE) COMPLETE Diagnosis/ICD: Supraventricular tachycardia-I47.1; Abnormal electrocardiogram [ECG] [EKG]-R94.31; Palpitations-R00.2 Indication: Edema, HTN, Hyperlipidemia, Carotid Stenosis, CARO, CKD-Stage III, Morbid Obesity CPT Codes: Echo Complete w Full Doppler-[id number] Study Detail: The following Echo studies were [...] (0.6-0.9m/s) AORTA: Asc Ao Diam 2.66 cm [id number] David Castle MD, [facility] Electronically signed on 09/18/2024 at 6:10:05 PM Final Procedure Note David Castle MD - 09/18/[address], Suite [facility], [place] [address] TRANSTHORACIC ECHOCARDIOGRAM REPORT Patient Name: USHA Deal Physician: [id number] Castle MD,FAC Study Date: 09/18/2024 Ordering Provider: JO KERN MRN/PID: [id number] Fellow: Nurse: Date of /Age: 7 1945 / 78 Central Scheduler: David ely RDCS, RVT Gender Assigned at F Additional Staff: : Height: 162.56 cm Admit Date: Weight: 122.02 kg Admission Status: Outpatient BSA / BMI: 2.22 m2 / 46.17 [facility] [place] Blood Pressure: 124 /86 mmHg Study Type: TRANSTHORACIC ECHO (TTE) COMPLETE Diagnosis/ICD: Supraventricular tachycardia-I47.1; Abnormalelectrocardiogram [ECG] [EKG]-R94.31; Palpitations-R00.2 Indication: Edema, HTN, Hyperlipidemia, Carotid Stenosis, CARO,CKD-Stage III, Morbid Obesity CPT Codes: Echo Complete w Full Doppler-[id number] Study Detail: The following Echo studies were [...] (0.6-0.9m/s) AORTA: Asc Ao Diam 2.66 cm [id number] David Castle MD, FACC Electronically signed on 09/18/2024 at 6:10:05 PM Final us Rc Kern MD CV ECHO PROCEDURES Final Result SYNGO * (ABNORMAL) Basic Metabolic Panel (01/30/2020 5:25 AM EDT) Glucose 128(H) 74 - 99 mg/dL [facility] Sodium 137 136 - 145 mmol/L [facility] Potassium 4.2 3.5 - 5.3 mmol/L [facility] Chloride 101 98 - 107 mmol/L [facility] Bicarbonate 32 21 - 32 mmol/L [facility] Anion Gap 8(L) 10 - 20 mmol/L [facility] Urea Nitrogen 14 6 - 23 mg/dL [facility] Creatinine 1.00 0.50 - 1.05 mg/dL [facility] GLOMERULAR FILTRATION RATE-NON 54(A) >60 mL/min/1.[address] [facility] GLOMERULAR FILTRATION RATE- 65 >60 mL/min/1.[address] [facility] Comment: CALCULATIONS OF ESTIMATED GFR ARE PERFORMED USING THE MDRD STUDY EQUATION FOR THE IDMS-TRACEABLE CREATININE METHODS. CLIN CHEM 2007;53:766-72 Calcium 8.8 8.6 - 10.3 mg/dL [facility] 01/30/2020 5:25 AM EDT 01/30/2020 6:26 AM EDT us Micah Bird MD LAB BLOOD ORDERABLES Final Res ult [facility] from Last 3 Months or Most Recently Relevant to Health Maintenance Insurance GENERIC COMMERCIAL MEDICARE PART A AND B GENERIC COMMERCIAL MEDICARE PART A AND B Care Teams Hydrologic Engineer Relationship Specialty Start Date End Date Roc Steele MD [address] [facility] 110 [place] [address] PCP - General 10/04/22
--- OUTSIDE RECORDS SUMMARY | 2024-12-27 11:36 | XMS_ITS | Encounter Summary ---
Author Organization [facility] Address [address] [place] [address] Care Team Providers Care City Mail Carrier Name Role Phone Roc Steele MD Primary Care Provider [phone] Roc Steele MD Unavailable [phone] Bull Duganjulianojean-claude JORDAN Unavailable [phone] Gladis Laird LPN Unavailable Encounter Details Date Type Department Care Team (Late st Contact Info) Description 09/18/2024 Abstract [facility] [place] [facility] [address] [facility] 110 [place] [address] Roc Steele MD 112 [facility] 110 [place] [address] Social History Tobacco Use Types Packs/Day Years [...] Patient Health Questionnaire-2 Score 0 08/19/2024 [facility] of [...] ([facility] st Contact Info) Description 01/02/2025 2:40 PM EDT Procedure Visit [facility] [address] [place] [phone] Alex Tam DPRen 3005 [facility] 5 [place] [address] documented as of this encounter Visit Diagnoses Not on filedocumented in this encounter Additional Health Concerns Assessment Noted Time PHQ-9 Depression Total Score: 0 07/06/19 24 3:00 PM EST documented as of this encounter Care Teams City Mail Carrier Relationship Specialty Start Date End Date Roc Steele MD 112 [facility] [address] [place], [place] [id number] PCP - General Internal Medicine 09/28/22 Roc Steele MD [address] [place] [address] PCP - ACO Reach 08/30/23 Luis Felipe Dugan DO [address] [place] [address] Referring Physician Neurology 03/07/24 Gladis Laird LPN [address] [place] [address] 07/19/24 documented as of this encounter
--- OUTSIDE RECORDS SUMMARY | 2024-12-27 11:36 | XMS_ITS | Encounter Summary ---
Author Organization [facility] Address [address] [place] [address] Care Team Providers Care Nylon Mender Name Role Phone Roc Steele MD Primary Care Provider [phone] Roc Steele MD Unavailable [phone] Luis Felipe Dugan DO Unavailable [phone] Raya Holt RN Unavailable [phone] Gladis Laird LPN Unavailable Encounter Details Date Type Department Care Team (Late st Contact Info) Description 10/03/2023 Abstract [facility] [place] [facility] [address] [facility] 110 [place] [address] Roc Steele MD [address] [facility] [address] [place] [address] Social History Tobacco Use Types Packs/Day Years [...] any clubs o r organizations such as restorationism groups, unions, fraternal or athletic groups, or [...] Recorded Patient Health Questionnaire-2 Score 0 07/06/2023 [facility] Occupat ional Health - [...] Upcoming Encounters Date Type Department Care Team ([facility] Contact Info) Description 01/02/2025 2:40 PM EDT Procedure Visit [facility] 112 [facility] 120 [place] [address] Alex Tam DPM 3006 [facility] 5 [place] [address] documented as of this encounter Visit Diagnoses Not on filedocumented in this encounter Additional Health Concerns Assessment Noted Time PHQ-9 Depression Total Score: 0 07/06/19 24 3:00 PM EST documented as of this encounter Care Teams Nylon Mender Relationship Specialty Start Date End Date Roc Steele MD 112 [facility] 110 [place] [address] PCP - General Internal Medicine 09/28/22 Roc Steele MD [address] [facility] 110 [place] [address] PCP - ACO Reach 08/30/23 Luis Felipe Dugan DO [address] [place] [address] Referring Physician Neurology 03/07/24 Raya Holt, CARMEN [address] [place], [place] [phone] Clinical Advocate Family Medicine 06/07/24 07/19/24 Gladis Laird LPN [address] [facility] 110 [place] [address] 07/19/24 documented as of this encounter
--- OUTSIDE RECORDS SUMMARY | 2024-12-27 11:36 | XMS_ITS | Encounter Summary ---
Author Organization [facility] Address [address] [place] [address] Care Team Providers Care Senior Tax Manager Name Role Phone Roc Steele MD Primary Care Provider [phone] Roc Steele MD Unavailable [phone] Luis Felipe Dugan DO Unavailable [phone] Raya Holt RN Unavailable [phone] Gladis Laird LPN Unavailable Encounter Details Date Type Department Care Team (Late st Contact Info) Description 10/16/[address] [place] [facility] [address] [facility] 110 [place] [address] Roc Steele MD [address] [facility] 110 [place] [address] Social History Tobacco Use Types Packs/Day Years [...] How often do you attend chur or jew services? Never 11/25/2022 Do you belong to [...] Recorded Patient Health Questionnaire-2 Score 0 07/06/2023 [facility] of Occupat [...] Upcoming Encounters Date Type Department Care Team ([facility] Contact Info) Description 01/02/2025 2:40 PM EDT Procedure Visit [facility] 112 [facility] 120 [place] [address] Alex Tam DPM 3006 [facility] 5 [place] [address] documented as of this encounter Visit Diagnoses Not on filedocumented in this encounter Additional Health Concerns Assessment Noted Time PHQ-9 Depression Total Score: 0 07/06/19 24 3:00 PM EST documented as of this encounter Care Teams Senior Tax Manager Relationship Specialty Start Date End Date Roc Steele MD 112 [facility] 110 [place] [address] PCP - General Internal Medicine 09/28/22 Roc Steele MD [address] [facility] 110 [place] [address] PCP - ACO Reach 08/30/23 Luis Felipe Dugan DO [address] [place] [address] Referring Physician Neurology 03/07/24 Raya Holt, CARMEN [address] [place], [place] [phone] Clinical Advocate Family Medicine 06/07/24 07/19/24 Gladis Laird LPN [address] [facility] 110 [place] [address] 07/19/24 documented as of this encounter
--- OUTSIDE RECORDS SUMMARY | 2024-12-27 11:36 | XMS_ITS | Encounter Summary ---
Author Organization [facility] Address [address] [place] [address] Care Team Providers Care Commercial Litigation Paralegal Name Role Phone Roc Steele MD Primary Care Provider [phone] Roc Steele MD Unavailable [phone] Luis Felipe Dugan DO Unavailable [phone] Raya Holt RN Unavailable [phone] Gladis Laird LPN Unavailable Encounter Details Date Type Department Care Team (Late st Contact Info) Description 07/13/2023 Abstract [facility] [place] [facility] [address] [facility] 110 [place] [address] Roc Steele MD [address] [facility] 110 [place] [address] Social History Tobacco Use Types Packs/Day Years [...] 07/06/2023 [facility] of Occupat ional Health - Occupational Stress [...] Upcoming Encounters Date Type Department Care Team ([facility] Contact Info) Description 01/02/2025 2:40 PM EDT Procedure Visit [facility] 112 [facility] 120 [place] [address] Alex Tam DPM 3006 [facility] 5 [place] [address] documented as of this encounter Visit Diagnoses Not on filedocumented in this encounter Additional Health Concerns Assessment Noted Time PHQ-9 Depression Total Score: 0 07/06/19 24 3:00 PM EST documented as of this encounter Care Teams Commercial Litigation Paralegal Relationship Specialty Start Date End Date Roc Steele MD 112 [facility] 110 [place] [address] PCP - General Internal Medicine 09/28/22 Roc Steele MD [address] [facility] 110 [place] [address] PCP - ACO Reach 08/30/23 Luis Felipe Dugan DO [address] [place] [address] Referring Physician Neurology 03/07/24 Raya Holt, CARMEN [address] [place], [place] [phone] Clinical Advocate Family Medicine 06/07/24 07/19/24 Gladis Laird LPN [address] [facility] 110 [place] [address] 07/19/24 documented as of this encounter
--- OUTSIDE RECORDS SUMMARY | 2024-12-27 11:36 | XMS_ITS | Encounter Summary ---
Author Organization [facility] Address [address] [place] [address] Care Team Providers Care Spring Coiler Hand Name Role Phone Roc Steele MD Primary Care Provider [phone] Roc Steele MD Unavailable [phone] Bull Duganjulianojean-claude JORDAN Unavailable [phone] Gladis Laird LPN Unavailable Encounter Details Date Type Department Care Team (Late st Contact Info) Description 08/19/2024 Abstract [facility] [place] [facility] [address] [facility] 110 [place] [address] Roc Steele MD 112 [facility] 110 [place] [address] Social History Tobacco Use Types Packs/Day Years [...] any clubs o r organizations such as adventism groups, unions, fraternal or athletic groups, or [...] Recorded Patient Health Questionnaire-2 Score 0 08/19/2024 [facility] of Occupat ional Health [...] Date Type Department Care Team ([facility] st Contact Info) Description 01/02/2025 2:40 PM EDT Procedure Visit [facility] 112 [facility] 120 [place] [address] Alex Tam DPM 8496 [facility] 5 [place] [address] documented as of this encounter Visit Diagnoses Not on filedocumented in this encounter Additional Health Concerns Assessment Noted Time PHQ-9 Depression Total Score: 0 07/06/19 24 3:00 PM EST documented as of this encounter Care Teams Spring Coiler Hand Relationship Specialty Start Date End Date Roc Steele MD 112 [facility] 110 [place], [place] [phone] PCP - General Internal Medicine 09/28/22 Roc Steele MD [address] [facility] 110 [place] [address] PCP - ACO Reach 08/30/23 Luis Felipe Dugan DO [address] [place] [address] Referring Physician Neurology 03/07/24 Gladis Laird LPN [address] [place] [facility] 110 [place] [address] 07/19/24 documented as of this encounter
--- OUTSIDE RECORDS SUMMARY | 2024-12-27 11:36 | XMS_ITS | Encounter Summary ---
Author Organization [facility] Address [address] [place] [address] Care Team Providers Care Service Coordinator Name Role Phone Roc Steele MD Primary Care Provider [phone] Roc Steele MD Unavailable [phone] Bull Duganjulianojean-claude JORDAN Unavailable [phone] Gladis Laird LPN Unavailable Encounter Details Date Type Department Care Team (Late st Contact Info) Description 08/07/2024 Abstract [facility] [place] [facility] [address] [facility] 110 [place] [address] Roc Steele MD 112 [facility] 110 [place] [address] Social History Tobacco Use Types Packs/Day Years [...] Recorded Patient Health Questionnaire-2 Score 0 08/01/2024 [facility] of Occupat ional Health - Occupational [...] ([facility] st Contact Info) Description 01/02/2025 2:40 PM EDT Procedure Visit [facility] [address] [place] [address] Alex Tam DPRen 3003 [facility] 5 [place] [address] documented as of this encounter Visit Diagnoses Not on filedocumented in this encounter Additional Health Concerns Assessment Noted Time PHQ-9 Depression Total Score: 0 07/06/19 24 3:00 PM EST documented as of this encounter Care Teams Service Coordinator Relationship Specialty Start Date End Date Roc Steele MD 112 [facility] [address] [place], [place] [address] PCP - General Internal Medicine 09/28/22 Roc Steele MD [address] [place] [address] PCP - ACO Reach 08/30/23 Luis Felipe Dugan DO [address] [place] [address] Referring Physician Neurology 03/07/24 Gladis Laird LPN [address] [place] [address] 07/19/24 documented as of this encounter
--- OUTSIDE RECORDS SUMMARY | 2024-12-27 11:36 | XMS_ITS | Clinical Summary ---
Author Organization [facility] Address [address] [place] [address] Care Team Providers Care Chaperone Name Role Phone Roc Steele MD Primary Care Provider Roc Steele MD Unavailable [phone] Luis Felipe Dugan DO Unavailable [phone] Gladis Laird LPN Unavailable Allergies Active Allergy [...] Team Description 12/03/2024 Results Follow-Up [facility] [place] [facility] [address] [facility] [address] [place] [address] MR LUMBAR SPINE WO CON 11/18/2024 Abstract [facility] [address] [facility] [address] [place] [id number] Roc Steele MD 10/29/2024 Patient Outreach [facility] [employer] [place] [address] Gladis Laird LPN 10/16/2024 11:30 AM EDT Office Visit [facility] [place] [facility] [address] [facility] [address] [place] [address] Aarti Castillo, PROCESS ENG Acute low back pain without sciatica, unspecified back pain laterality (Primary Dx) 10/16/2024 Refill [facility] [place] [facility] [address] [facility] [address] [place] [address] Roc Steele MD Lumbosacral spondylosis without myelopathy 10/16/2024 Bamboo flowsheet [facility] [place] [facility] [address] [facility] [address] [place] [address] Aarti Castillo, PROCESS ENG 10/16/2024 Travel 10/10/2024 3:00 PM EDT Procedure Visit [facility] [address] [facility] [address] [place] [address] Alex Tam, DPM Pain due to onychomycosis of toenails of both feet (Primary Dx) 10/10/2024 Travel 10/10/2024 [facility] [place] [facility] [address] [facility] [address] [place] [address] Roc Steele MD Primary insomnia; Anxiety; Hyperlipidemia, unspecified hyperlipidemia type 10/10/2024 [facility]ill [facility] [place] [facility] [address] [facility] [address] [place] [address] Aarti Castillo, DEISY Primary osteoarthritis involving multiple joints; Benign essential hypertension 10/07/2024 [facility] [place] [facility] [address] [facility] [address] [place] [address] Aarti Castillo, DEISY Primary insomnia 10/02/2024 Refill [facility] [place] [facility] [address] [facility] [address] [place] [address] Aarti Castillo, DEISY Acute low back pain without sciatica, unspecified back pain laterality 10/01/2024 Clinisync Result Encounter [facility] External Department Unsolicited Provider, Generic External Data 10/01/2024 Abstract [facility] [place] [facility] [address] [facility] [address] [place] [address] Roc Steele MD from Last 3 Months [...] Recorded Patient Health Questionnaire-2 Score 0 10/16/2024 [facility] Answer Date Recorded [...] PODIATRY [address] [facility] [address] [place] [address] Alex Tam DPM [address] [facility] 5 [place] [address] Health Maintenance Due Date Last [...] PM EDT Narrative 10/01/2024 2:37 [place] [address] Magnetic Resonance Report Signed Patient: USHA WALKER MR#: [id number] : 1945 Acct:[id number] Age/Sex: 78 / F ADM Date: 10/01/24 Loc: MRI Attending Dr: Ml Sanchez M.D. Ordering Physician: Ml Sanchez M.D. Date of Service: 10/01/24 Procedure(s): MR lumbar spine wo con Accession Number(s): [id number] cc: ROC STEELE ; Ml Sanchez M.D. [facility] [place] [id number] Patient Name: USHA WALKER MRN: [id number] date: 1945 Sex: F Assigned Patient Location: MRI Current Patient Location: MRI Accession/Order Number: [id number] Exam Date: 10/01/2024 14:28 Report Date: 10/01/2024 [...] Bach M.D. 10/01/2024 2:34 PM Dictation Location: [place] [address] Electronically authenticated by: [id number] Y Date: 10/01/2024 14:34 Dictated By: Sj Bach M.D. Signed By: 10/01/24 1437 DD/ 1434 TD/TT: Travel Occupational Therapist: Procedure Note Radiology, Radiologist, MD - 10/01/2024 [place] [address] Magnetic Resonance Report Signed Patient: USHA WALKER KMR#: [id number] : 1945cct:[id number] Age/Sex: 78 / FADM Date: 10/01/24 Loc: MRI Attending Dr: Ml Sanchez M.D. Ordering Physician: Ml Sanchez M.D. Date of Service: 10/01/24 Procedure(s): MR lumbar spine wo con Accession Number(s): [id number] cc: ROC STEELE ; Ml Sanchez M.D. [facility] [place] [id number] Patient Name: USHA WALKER MRN: [id number] date: 1945 Sex: F Assigned Patient Location: MRI Current Patient Location: MRI Accession/Order Number: [id number] Exam Date: 10/01/2024 14:28 Report Date: 10/01/2024 [...] Bach M.D. 10/01/2024 2:34 PM Dictation Location: [place] [address] Electronically authenticated by: [id number] Y Date: 4:34 Dictated By: Sj Bach M.D. Signed By:10/01/24 1437 DD/ 1434 TD/TT: Travel Occupational Therapist: us Generic External Data Provider [facility] Final Result * Colonoscopy (10/31/2012 12:00 PM EDT) Anatomical Region Laterality Modality Endoscopy 10/31/2012 12:0 0 PM EDT Narrative 10/31/2012 12:00 PM EDT PERFORMED AT [facility] LOCATION:[id number] DIVERTICULOSIS Procedure Note CONVERSION, GENERIC - 09/15/2022 PERFORMED AT [facility] LOCATION:[id number] DIVERTICULOSIS Roc Steele MD ENDOSCOPY PROCEDURE ORDERABLES Final Result from Last 3 Months or Most Recently Relevant to Health Maintenance Insurance [facility] MEDICARE Care Teams Chaperone Relationship Specialty Start Date End Date Roc Steele MD [address] [facility] [address] [place] [address] PCP - General Internal Medicine 09/28/22 Roc Steele MD [address] [place] [address] PCP - ACO Reach 08/30/23 Luis Felipe Dugan DO [address] [place] [address] Referring Physician Neurology 03/07/24 Gladis Laird LPN 112 [facility] 110 [place] [address] 07/19/24
--- OUTSIDE RECORDS SUMMARY | 2024-12-27 11:36 | XMS_ITS | Encounter Summary ---
Author Organization [facility] Address [address] [place] [address] Care Team Providers Care Helper Driver Name Role Phone Roc Steele MD Primary Care Provider [phone] Roc Steele MD Unavailable [phone] RitchieBulljulianojean-claude OJRDAN Unavailable [phone] Gladis Laird LPN Unavailable Encounter Details Date Type Department Care Team (Late st Contact Info) Description 10/01/2024 Abstract [facility] [place] [facility] [address] [facility] [address] [place] [address] Roc Steele MD 112 [facility] 110 [place] [address] Social History Tobacco Use Types Packs/Day Years [...] often do you attend chur ch or holiness services? Never 11/25/2022 Do you belong to any clubs o r organizations such as cheondoism groups, unions, fraternal or athletic groups, or [...] Recorded Patient Health Questionnaire-2 Score 0 08/19/2024 [facility] - [...] EDT Procedure Visit [facility] [address] [place] [address] Alex Tam DPRen [address] [facility] 5 [place] [address] documented as of this encounter Visit Diagnoses Not on filedocumented in this encounter Additional Health Concerns Assessment Noted Time PHQ-9 Depression Total Score: 0 07/06/19 24 3:00 PM EST documented as of this encounter Care Teams Helper Driver Relationship Specialty Start Date End Date Roc Steele MD 112 [facility] [address] [place], [place] [id number] PCP - General Internal Medicine 09/28/22 Roc Steele MD [address] [place] [address] PCP - ACO Reach 08/30/23 Luis Felipe uDgan DO [address] [place] [address] Referring Physician Neurology 03/07/24 Gladis Laird LPN [address] [place] [address] 07/19/24 documented as of this encounter
--- OUTSIDE RECORDS SUMMARY | 2024-12-27 11:39 | XMS_ITS | CCD ---
Author Organization [facility] CliniSyca Care Team Providers Care Crts Name Role Phone PelonTrinaew Unavailable Unavailable Unavailable [...] Primary Care Provider Roc Steele MD Unavailable [phone] Ritchie DO, Christopher Unavailable Mala Sapp Attending UnavailMala Kenney Admitting UnavailRoc Grant Primary Care Unavailable Yanet MORALES, Raya Unavailable Roc Steele MD Primary Care Provider Laird TENNIS RACKET REPAIRER, Gladis Unavailable Unavailable Ritchie DO, Christopher Unavailable Ritchie DO, Christopher Unavailable [phone] Laird TENNIS RACKET REPAIRER, Gladis Unavailable KAMILA PRIDE Attending Unavailable ALEX [...] Clarithromycin; Translations: [clarithromycin] Drug Allergy Unknown [facility] Work Phone: Quinolones (antibiotic) (18 sources) moxifloxacin; Translations: [moxifloxacin] Drug Allergy Anaphylaxis, Unknown [facility] Work Phone: (20 sources) Ciprofloxacin; Translations: [ciprofloxacin] Drug Allergy 3 Unknown [facility] (20 sources) Clarithromycin; Translations: [clarithromycin] Drug Allergy 3 Unknown [facility] Repository (4 sources) moxifloxacin; Translations: [Avelox] Drug Allergy 3 Anaphylaxis [facility] Repository (20 sources) moxifloxacin; Translations: [moxifloxacin] Drug Allergy 3 Anaphylaxis, Angioedema [facility] Work Phone: (1 source) Ciprofloxacin Drug Allergy 3 [facility] Repository (1 source) Sulfonamides (Antibiotic) Drug allergy (disorder) 3 [facility] Repository (20 sources) Sulfanilamide Allergy to substance 3 [facility] (8 sources) Sulfonamides (Antibiotic); Translations: [SULFA (SULFONAMIDE ANTIBIOTICS)] Propensity to adverse reactions 5 Unknown [facility] Work Phone: Medications Current Medications Medication Drug Class(es) Dates Sig (Normalized) Sig (Original) acetaminophen 325 mg / HYDROcodone bitartrate 5 mg oral tablet (20 sources) Opioid Agonist Start: 02-29-2024 End: 11-17-2024 take 1 tablet by mouth every four hours for pain HYDROcodone-acetam inophen ([place]) 5-325 MG tablet Indications: Lumbosacral spondylosis without myelopathy Take 1 tablet by mouth every 4 (four) hours if needed for moderate pain or severe pain 180 tablet 10/18/2024 11/17/2024 Active [id number] 200 actuat albuterol 0.09 mg/actuat metered dose [...] day at the same time. 0 Active tiezmtkutvep-Ln-rhuw-mineral s tablet (1 source) take 1 tablet by mouth once daily cdifqaguqryp-Zg-pxxh-minerals tablet Take 1 tablet by mouth once [...] 08-01-2024 Chronic Other aftercare (1 source) Other longterm (current) drug therapy; Translations: [OTH OUTREACH PROFESSIONAL CURRENT DRUG THERAPY] Onset: 3 Episodic Other [...] [facility] Facility MR [place] [address] Magnetic Resonance Report Signed Patient: LUMA RIBEIRO MR#: [id number] : 1945 Acct:[id number] Age/Sex: 78 / F ADM Date: 10/01/24 Loc: MRI Attending Dr: Daron Sanchez M.D. Ordering Physician: Daron Sanchez M.D. Date of Service: 10/01/24 Procedure(s): MR lumbar spine wo con Accession Number(s): [id number] cc: ROC STEELE ; Daron Sanchez M.D. The [place] [address] Patient Name: LUMA RIBEIRO MRN: [id number] date: 1945 Sex: F Assigned Patient Location: MRI Current Patient Location: MRI Accession/Order Number: [id number] Exam Date: 10/01/2024 14:28 Report Date: 10/01/2024 [...] Bach M.D. 10/01/2024 2:34 PM Dictation Location: [place] [address] Electronically authenticated by: [id number] Y Date: 10/01/2024 14:34 Dictated By: Srinivasa Bach M.D. Signed By: 10/01/24 1437 DD/ 1434 TD/TT: Tongue And Groove Machine Operator: [facility] Radiology, Radiologi MD noemy - 10/01/2024 [place] [address] Magnetic Resonance Report Signed Patient: LUMA RIBEIRO MR#: [id number] : 1945 Acct:[id number] Age/Sex: 78 / F ADM Date: 10/01/24 Loc: MRI Attending Dr: Daron Sanchez M.D. Ordering Physician: Daron Sanchez M.D. Date of Service: 10/01/24 Procedure(s): MR lumbar spine wo con Accession Number(s): [id number] cc: ROC STEELE ; Daron Sanchez M.D. [facility] [place] [address] Patient Name: LUMA RIBEIRO MRN: [facility]:[id number] date: 1945 Sex: F Assigned Patient Location: MRI Current Patient Location: MRI Accession/Order Number: [id number] Exam Date: 10/01/2024 14:28 Report Date: 10/01/2024 [...] Bach M.D. 10/01/2024 2:34 PM Dictation Location: [place] [address] Electronically authenticated by: [id number] Y Date: 10/01/2024 14:34 Dictated By: Srinivasa Bach M.D. Signed By: 10/01/24 1437 DD/ 1434 TD/TT: Tongue And Groove Machine Operator: [facility] Radiology Study observation (narrative) [facility] MR LUMBAR SPINE WO Jennifer crawford By: Radiologist Radiology on 10-01-2024 [facility] [employer] Work Phone: NUCLEAR STRESS TESTon 2024 NUCLEAR STRESS TEST Interpreted By: David Walls, and Jett Inman STUDY: MYOCARDIAL PERFUSION STRESS TEST WITH LEXISCAN Performing facility: [facility], [address] [place] [address], [address], [address] Provider: Amber Hawley MD, [facility] PCP: Dr. Madelyn Steele Supervising provider: David Castle MD, [facility] INDICATION: Signs/Symptoms:abn ekg, cp, dizziness, m hld. ,R42 Dizziness and giddiness,R07.89 Other chest pain,R00.2 Palpitations,E78.2 Mixed hyperlipidemia HISTORY: Gender: F; Age: 78 y/o ; Height: HT 162.6 cm cm; Weight: WT 122.018 kg kg. Abnormal EKG; High Cholesterol; HTN; Palpitations; Chest Pain; Denies smoking. COMPARISON: No comparison. ACCESSION NUMBER(S): [id number] ORDERING CLINICIAN: AMBER HAWLEY TECHNIQUE: TWO DAY [...] David Castle 09/19/2024 3:00 PM Dictation workstation: [id number] [facility] TRANSTHORACIC ECHO (TTE) COM PLETEon 09-18-2024 TRANSTHORACIC ECHO (TTE) COMPLETE [address], [address] [place] [address] TRANSTHORACIC ECHOCARDIOGRAM REPORT Patient Name: LUMA Deal Physician: [id number] David Castle MD, [facility] Study Date: 09/18/2024 Ordering Provider: [id number] AMBER HAWLEY MRN/PID: [id number] Fellow: Nurse: Date of /Age: 7 1945 Manager Fashion: Viry ely RDCS, RVT Gender Assigned at F Additional Staff: : Height: 162.56 cm Admit Date: Weight: 122.02 kg Admission Status: Outpatient BSA / BMI: 2.22 m2 / 46.17 Department Location: [facility]/m2 [place] Blood Pressure: 124 /86 mmHg Study Type: TRANSTHORACIC ECHO (TTE) COMPLETE Diagnosis/ICD: Supraventricular tachycardia-I47.1; Abnormal electrocardiogram [ECG] [EKG]-R94.31; Palpitations-R00.2 Indication: Edema, HTN, Hyperlipidemia, Carotid Stenosis, CARO, CKD-Stage III, Morbid Obesity CPT Codes: Echo Complete w Full Doppler-69823 Study Detail: The following Echo studies were [...] 338.04 c (more content not included)... Normal [facility] US Heart TransthoracicOrdere d By: David Castle on 09-18-2024 Aortic Valve Area by Continuity of Peak Velocity 2.65 cm2 [facility] Work Phone: 00 Aortic Valve Area by Continuity of VTI 1.93 cm2 [facility] Work Phone: 00 AV mn grad 7 mmHg [facility] Work Phone: AV pk grad 13 mmHg [facility] Work Phone: AV pk malinda 1.81 m/s [facility] Work Phone: LA vol index A/L 44.1 ml/m2 [facility] Work Phone: 00 LV A4C EF 42.7 [facility] Work Phone: 00 LV Biplane EF 36 % [facility] Work Phone: LV EF 63 % [facility] Work Phone: LVIDd 4.66 cm [facility] Work Phone: [phone] LVOT diam 2.27 cm [facility] Work Phone: MV avg E/e' ratio 26.81 [facility] Work Phone: MV E/A ratio 0.79 [facility] Work Phone: RV free wall pk S' 15.98 cm/s [facility] Work Phone: [facility] Work Phone: US Heart Transthoracicon [facility] [address] [place] [address], [address], [place] [address] TRANSTHORACIC ECHOCARDIOGRAM REPORT Patient Name: LUMA Deal Physician: [id number] David Castle MD, [facility] Study Date: 09/18/2024 Ordering Provider: [id number] AMBER HAWLEY MRN/PID: [id number] Fellow: Nurse: Date of /Age: 7 1945 Manager Fashion: Viry ely RDCS, RVT Gender Assigned at F Additional Staff: : Height: 162.56 cm Admit Date: Weight: 122.02 kg Admission Status: Outpatient BSA / BMI: 2.22 m2 / 46.17 Department Location: [facility] Heart kg/m2 [place] Blood Pressure: 124 /86 mmHg Study Type: TRANSTHORACIC ECHO (TTE) COMPLETE Diagnosis/ICD: Supraventricular tachycardia-I47.1; Abnormal electrocardiogram [ECG] [EKG]-R94.31; Palpitations-R00.2 Indication: Edema, HTN, Hyperlipidemia, Carotid Stenosis, CARO, CKD-Stage III, Morbid Obesity CPT Codes: Echo Complete w Full Doppler-55989 Study Detail: The following Echo studies were [...] included)... David Mortensen M D - 09/18/[address], Suite [facility], [place] [address] TRANSTHORACIC ECHOCARDIOGRAM REPORT Patient Name: LUMA Deal Physician: [id number] David Castle MD, [facility] Study Date: 09/18/2024 Ordering Provider: [id number] AMBER HAWLEY MRN/PID: [id number] Fellow: Nurse: Date of /Age: 7 1945 Manager Fashion: Viry ely RDCS, RVT Gender Assigned at F Additional Staff: : Height: 162.56 cm Admit Date: Weight: 122.02 kg Admission Status: Outpatient BSA / BMI: 2.22 m2 / 46.17 Department Location: [facility]/[address] Blood Pressure: 124 /86 mmHg Study Type: TRANSTHORACIC ECHO (TTE) COMPLETE Diagnosis/ICD: Supraventricular tachycardia-I47.1; Abnormal electrocardiogram [ECG] [EKG]-R94.31; Palpitations-R00.2 Indication: Edema, HTN, Hyperlipidemia, Carotid Stenosis, CARO, CKD-Stage III, Morbid Obesity CPT Codes: Echo Complete w Full Doppler-85860 Study Detail: The following Echo studies were [...] Index: 0.48 AORTI (more content not included)... [facility] Work Phone: LIPID PANEL, STANDARD 06-30 Cholesterol [Mass/Vol] 153 mg/dL Normal <200 [facility] Comment on above: Order Comment: COLLE CTION KIT GIVEN TO PATIENT. PATIENT ADVISED TO RETURN. Performed By: #### 7 600 #### [facility] [address], [address] [place] [address] Bark Spudder: Bryce Larsen MD Cholesterol in HDL [Mass/Vol] 49 mg/dL Low > OR = 50 [facility] Comment on above: Order Comment: COLLE CTION KIT GIVEN TO PATIENT. PATIENT ADVISED TO RETURN. Performed By: #### 7 600 #### [facility] [address], [address] [place] [address] Bark Spudder: Bryce Larsen MD Cholesterol in LDL [Mass/Vol] [...] LDL-C. Mike JURADO et al. MARGO. 2013;310(19): 4909-7346 (http://education.[employer].yoonew/faq/ZZX497) Performed By: #### 7 600 #### [facility] [address], [address] [place] [address] Bark Spudder: Bryce Larsen MD Cholesterol.total/Cho lesterol in HDL [Mass ratio] 3.1 {ratio} Normal <5.0 [facility] Comment on above: Order Comment: COLLE CTION KIT GIVEN TO PATIENT. PATIENT ADVISED TO RETURN. Performed By: #### 7 600 #### [facility] [address], [address] [place] [address] Bark Spudder: Bryce Larsen MD NON HDL CHOLESTEROL 104 [...] By: #### 7 600 #### [facility] [address], [address] [place] [address] Bark Spudder: rByce Larsen MD Triglyceride [Mass/Vol] 121 mg/dL Normal <150 [facility] Comment on above: Order Comment: COLLE CTION KIT GIVEN TO PATIENT. PATIENT ADVISED TO RETURN. Performed By: #### 7 600 #### [facility] [address], [address] [place] [address] Bark Spudder: Bryce Larsen MD DEXA BONE DENSITYon 07-27-19 [...] Available MM TOMOSYNTHESIS SCREENING B Ion 07-18-[address] [address] Mammography Report Signed Patient: LUMA RIBEIRO MR#: [id number] : 1945 Acct:[id number] Age/Sex: 78 / F ADM Date: 07/17/24 Loc: MAMMO Attending Dr: ROC STEELE Ordering Physician: ROC STEELE Results: Date of Service: 07/17/24 Follow Up: Procedure(s): MM tomosynthesis screening BI Accession Number(s): [id number] cc: USAMAMARIKAROC Patient Name: LUMA RIBEIRO MR#: [id number] : 1945 Exam Date: 07/17/2024 Ordering Doctor: DR ROC STEELE M.D. RADIOLOGY REPORT PROCEDURE: MM TOMOSYNTHESIS SCREENING BI COMPARISON: MG MAMM SCREEN 3D RON CAD, 06/06/2022. MG MAMM RNO SCRN W CAD DIG, 12/03/2012. INDICATIONS: Screening Calculator Name NCI Breast Cancer Risk Assessment Tool 5 Year Breast Cancer Risk 1.10% Lifetime Breast Cancer Risk 2.20% Personal Breast Cancer No Personal Ovarian Cancer No Treatments None Family Cancers Aunt-paternal with breast cancer at age 60. LOCATION: [facility] BREAST COMPOSITION: There are scattered areas [...] Signed By: 07/18/24 1620 DD/ 1619 TD/TT: Tongue And Groove Machine Operator: [facility] RadiologyJodieogmekhi salguero MD - 07/18/2024 The [place] [id number] Mammography Report Signed Patient: LUMA RIBEIRO MR#: [id number] : 1945 Acct:[id number] Age/Sex: 78 / F ADM Date: 07/17/24 Loc: MAMMO Attending Dr: ROC STEELE Ordering Physician: ROC STEELE Results: Date of Service: 07/17/24 Follow Up: Procedure(s): MM tomosynthesis screening BI Accession Number(s): [id number] cc: ROC STEELE Patient Name: LUMA RIBEIRO MR#: [id number] : 1945 Exam Date: 07/17/2024 Ordering Doctor: [...] breast cancer at age 61. LOCATION: [facility] BREAST COMPOSITION: There are scattered areas [...] Signed By: 07/18/24 1620 DD/ 1619 TD/TT: Tongue And Groove Machine Operator: [employer] Radiology Study observation (narrative) [facility] MM TOMOSYNTHESIS SCREENING B IOrdered By: Radiologist Radiology on 07-18-2024 [employer] Work Phone: ECG 12 Leadon 07-15-2024 [facility] Work Phone: [facility] Work Phone: Laboratory - Hematology and Cell countson 07-11-2024 HbA1c (Bld) [Mass fraction] 6.1 % [facility] No Panel Informationon 07-11 [facility] XR HIP 2 OR [...] #### 1 0231, 622 #### [facility] [place] [address] Bark Spudder: Bryce Larsen MD Albumin/Globulin [Mass ratio] 1.7 {ratio} Normal 1.0-2.5 [facility] Comment on above: Performed By: #### 1 230, 622 #### [facility] [place] [address] Bark Spudder: Bryce Larsen MD ALP [Catalytic activity/Vol] 99 U/L Normal 37-153 [facility] Comment on above: Performed By: #### 1 230, 622 #### [facility] [place] [address] Bark Spudder: Bryce Larsen MD ALT [Catalytic activity/Vol] 8 U/L Normal 6-29 [facility] Comment on above: Performed By: #### 1 230, 622 #### [facility] [place] [address] Bark Spudder: Bryce Larsen MD AST [Catalytic activity/Vol] 19 U/L Normal 10-35 [facility] Comment on above: Performed By: #### 1 230, 622 #### [facility] of [place] [address] Bark Spudder: Bryce Larsen MD Bilirubin [Mass/Vol] 0.6 mg/dL Normal 0.2-1.2 [facility] Comment on above: Performed By: #### 1 230, 622 #### [facility] of [place] [address] Bark Spudder: Bryce Larsen MD Calcium [Mass/Vol] 8.9 mg/dL Normal 8.6-10.4 [facility] Comment on above: Performed By: #### 1 230, 622 #### [facility] of [place] [address] Bark Spudder: Bryce Larsen MD Chloride [Moles/Vol] 104 mmol/L Normal 98-110 [facility] Comment on above: Performed By: #### 1 230, 622 #### [facility] of [place] [address] Bark Spudder: Bryce Larsen MD CO2 [Moles/Vol] 27 mmol/L Normal 20-32 [facility] Comment on above: Performed By: #### 1 230, 622 #### [facility] [place] [address] Bark Spudder: Bryce Larsen MD Creatinine [Mass/Vol] 1.11 mg/dL High 0.60-1.[address] [facility] Comment on above: Performed By: #### 1 230, 622 #### [facility] of [place] [address] Bark Spudder: Bryce Larsen MD GFR/1.73 sq M.predicted among non-blacks MDRD (S/P/Bld) [Vol rate/Area] 51 mL/min/{1.73_m2} Low > OR = 60 [facility] Comment on above: Performed By: #### 1 230, 622 #### [facility] of [place] [id number] Bark Spudder: Bryce Larsen MD Globulin (S) [Mass/Vol] 2.3 g/dL Normal 1.9-3.7 [facility] Comment on above: Performed By: #### 1 230, 622 #### [facility] [place] [address] Bark Spudder: Bryce Larsen MD Glucose [Mass/Vol] 145 mg/dL High 65-139 [facility] Comment on above: Result Comment: Non-fasting reference interval For someone without known diabetes, a glucose value >125 mg/dL indicates that they may have diabetes and this should be confirmed with a follow-up test. Performed By: #### 1 230, 622 #### [facility] [place] [address] Bark Spudder: Bryce Larsen MD Potassium [Moles/Vol] 4.2 mmol/L Normal 3.5-5.[address] [facility] [address] [facility] Comment on above: Performed By: #### 1 230, 622 #### [facility] [place] [address] Bark Spudder: Bryce Larsen MD Protein [Mass/Vol] 6.3 g/dL Normal 6.1-8.1 [facility] Comment on above: Performed By: #### 1 230, 622 #### [facility] [place] [address] Bark Spudder: Bryce Larsen MD Sodium [Moles/Vol] 138 mmol/L Normal 135-146 [facility] Comment on above: Performed By: #### 1 230, 622 #### [facility] [place] [address] Bark Spudder: Bryce Larsen MD Urea nitrogen [Mass/Vol] 19 mg/dL Normal 7-25 [facility] Comment on above: Performed By: #### 1 230, 622 #### [facility] [place] [address] Bark Spudder: Bryce Larsen MD Urea nitrogen/Creatinine [Mass ratio] 17 mg/mg Normal - [facility] Comment on above: Performed By: #### 1 0231, 622 #### [facility] [place] [address] Bark Spudder: Bryce Larsen MD MAGNESIUMon 07-04-2024 Magnesium [Mass/Vol] 2.0 mg/dL Normal 1.5-2.5 [facility] Comment on above: Order Comment: FASTI NG:NO FASTING: NO Performed By: #### 1 0231, 622 #### [facility] [address], [address] [place] [address] Bark Spudder: Bryce Larsen MD B TYPE NATRIURETIC PEPTIDE ( BNP)on 06-12-2024 Natriuretic peptide B (Bld) [Mass/Vol] 108 pg/mL High <100 [facility] Comment on above: Result Comment: BNP levels increase with age in the general population with the highest values seen in individuals greater than 75 years of age. Reference: J. Am. Vladislav. Cardiol. 2002; 40:976-982. Performed By: #### 3 7386 #### [facility] [place] [address] Bark Spudder: Bryce Larsen MD COMPREHENSIVE METABOLIC PANE Kit 05-23-2024 Albumin [Mass/Vol] 3.6 g/dL Normal 3.6-5.1 [facility] Comment on above: Performed By: #### 6 , 79351 #### [facility] [address], [address] [place] [address] Bark Spudder: Bryce Larsen MD Albumin/Globulin [Mass ratio] 1.3 {ratio} Normal 1.0-2.5 [facility] Comment on above: Performed By: #### 6 , 74205 #### [facility] [address], [address] [place] [address] Bark Spudder: Bryce Larsen MD ALP [Catalytic activity/Vol] 87 U/L Normal 37-153 [facility] Comment on above: Performed By: #### 6 22, 29966 #### [facility] of [address], [address] [place] [address] Bark Spudder: Bryce Larsen MD ALT [Catalytic activity/Vol] 15 U/L Normal 6-29 [facility] Comment on above: Performed By: #### 6 22, 90528 #### [facility] of [place] [address] Bark Spudder: Bryce Larsen MD AST [Catalytic activity/Vol] 31 U/L Normal 10-35 [facility] Comment on above: Performed By: #### 6 22, 95456 #### [facility] of [place] [address] Bark Spudder: Bryce Larsen MD Bilirubin [Mass/Vol] 0.5 mg/dL Normal 0.2-1.2 [facility] Comment on above: Performed By: #### 6 , 74979 #### [facility] of [place] [address] Bark Spudder: Bryce Larsen MD Calcium [Mass/Vol] 9.1 mg/dL Normal 8.6-10.4 [facility] Comment on above: Performed By: #### 6 22, 26134 #### [facility] [place] [address] Bark Spudder: Bryce Larsen MD Chloride [Moles/Vol] 103 mmol/L Normal 98-110 [facility] Comment on above: Performed By: #### 6 22, 99932 #### [facility] [place] [address] Bark Spudder: Bryce Larsen MD CO2 [Moles/Vol] 27 mmol/L Normal 20-32 [facility] Comment on above: Performed By: #### 6 22, 98003 #### [facility] of [place] [address] Bark Spudder: Bryce Larsen MD Creatinine [Mass/Vol] 1.04 mg/dL High 0.60-1.[address] [facility] Comment on above: Performed By: #### 6 , 85167 #### [facility] [place] [address] Bark Spudder: Bryce Larsen MD GFR/1.73 sq M.predicted among non-blacks MDRD (S/P/Bld) [Vol rate/Area] 55 mL/min/{1.73_m2} Low > OR = 60 [facility] Comment on above: Performed By: #### 6 , 29008 #### [facility] [place] [address] Bark Spudder: Bryce Larsen MD Globulin (S) [Mass/Vol] 2.7 g/dL Normal 1.9-3.7 [facility] Comment on above: Performed By: #### 6 , 72880 #### [facility] [place] [address] Bark Spudder: Bryce Larsen MD Glucose [Mass/Vol] 73 mg/dL Normal 65-139 [facility] Comment on above: Result Comment: Non-fasting reference interval Performed By: #### 6 22, 32441 #### [facility] [place] [address] Bark Spudder: Bryce Larsen MD Potassium [Moles/Vol] 4.7 mmol/L Normal 3.5-5.[address] [facility] Comment on above: Performed By: #### 6 , 34555 #### [facility] [place] [address] Bark Spudder: Bryce Larsen MD Protein [Mass/Vol] 6.3 g/dL Normal 6.1-8.1 [facility] Comment on above: Performed By: #### 6 , 09520 #### [facility] of [place] [address] Bark Spudder: Bryce Larsen MD Sodium [Moles/Vol] 137 mmol/L Normal 135-146 [facility] Comment on above: Performed By: #### 6 22, 96344 #### [facility] [address], [address] [place] [address] Bark Spudder: Bryce Larsen MD Urea nitrogen [Mass/Vol] 15 mg/dL Normal 7-25 [facility] Comment on above: Performed By: #### 6 22, 62187 #### [facility] [address], [address] [place] [address] Bark Spudder: Bryce Larsen MD Urea nitrogen/Creatinine [Mass ratio] 14 mg/mg Normal 6- [facility] Comment on above: Performed By: #### 6 22, 58050 #### [facility] [address], [address] [place] [address] Bark Spudder: Bryce Larsen MD MAGNESIUMon 05-23-2024 Magnesium [Mass/Vol] 1.9 mg/dL Normal 1.5-2.5 [facility] Comment on above: Order Comment: FASTI NG:NO FASTING: NO Performed By: #### 6 22, 35117 #### [facility] [address], [address] [place] [address] Bark Spudder: Bryce Larsen MD ALL BASIC METABOLIC PANELon 05-16-2024 Anion gap [Moles/Vol] 12 mmol/L [facility] Calcium [Mass/Vol] 9 mg/dL 8.5 - 10. 1 mg/dL [facility] Chloride [Moles/Vol] 98 mmol/L 98 - 10 7 mmol/L [facility] CO2 [Moles/Vol] 29.6 mmol/L 21.0 - 32.0 mmol/L [facility] Creatinine [Mass/Vol] 1.42 mg/dL High 0.55 - 1.02 mg/dL [facility] GFR/1.73 sq M.predicted CKD-EPI (S/P/Bld) [Vol rate/Area] 43 Low >=60 mL/min/1.7 3m 2 [facility] Glucose [Mass/Vol] 74 mg/dL 74 - 106 mg/dL [facility] Interpretation and review of laboratory results Abnormal [facility] Potassium [Moles/Vol] 3.6 mmol/L 3.5 - 5.1 mmol/L [facility] Sodium [Moles/Vol] 136 mmol/L 136 - 145 mmol/L [facility] EGFR-NON AF CITIZ[place] 36 Low >=60 mL/min/1.7 3m 2 [facility] Urea nitrogen [Mass/Vol] 36 mg/dL High 7.0 - 18.0 mg/dL [facility] Urea nitrogen/Creatinine [Mass ratio] 25.4 mg/mg [facility]V*on 04-29-2024 XR chest 2V* [facility] Main [place] [address] [place] [address] XRay Report Signed Patient: Luma Ribeiro MR#: [id number] : 1945 Acct:[id number] Age/Sex: 78 / F ADM Date: 04/29/24 Loc: XDUCLY Room: Type: [facility] 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 CARPET TECHNICIAN Copies to: Mala Sapp APRN Ordering Provider: [...] R Christopher M.D.04/29/2024 4:00 PM Dictation Location: [place] [id number] Transcribed By: ALEXEY 04/29/24 1600 Dictated By: Jose R Christopher DO 04/29/24 1559 Signed By: 04/29/24 1600 Normal [facility] XR CHEST 2 VIEWSon [...] de hand and wrist EMG 1 Extremeityon [facility] 7-8 Nerveson 03-07-2024 [facility] Established Visit (Orthopaed ic [...] Complaint RT shoulder Ongoing issue X rays [place]AN[facility]ER today History of Present Illness New Patient [...] normal pronation supination wrist flexion extension and 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 Distal pulses and sensation are intact. Limited forward flexion to about 25 degrees lateral abduction to about 15 unable to perform any external rotation but internal he can get to the small of her back. Her exam does not allow for much of a true Neer's Shelby or Goldston's test. Diagnostics: See dictated report from today, previous outside CT scan report of the humerus reviewed, and is available in the [facility] chart. 1 Procedure: None Assessment: Chronic [...] the patient's CT scan report reviewed in [facility] chart Other 1 than the anterior [...] grammatical areas may persist related to the [employer] software (more content not included)... Normal ipsy Radiologyon 10-04-2022 XR Shoulder 2 Views [facility] Work Phone: SHOULDER, CMPLT, MIN 2 VIEWS on 10-04-2022 SHOULDER, CMPLT, MIN 2 VIEWS Patient Name: LUMA RIBEIRO STUDY: SHOULDER, CMPLT, MIN 2 VIEWS; Right; 10/04/2022 1:49 pm INDICATION: pain M25.519: Shoulder pain. ACCESSION NUMBER(S): [id number] ORDERING CLINICIAN: TANIYA AL FINDINGS: Multiple views [...] Electronically signed by: TANIYA AL MD Normal [facility] CT HUMERUS RIGHT W/O CONTRAS Ton 09-12-2022 [...] by Pernell Wiley on 09/12/20[address] [facility] XR Chest 2 Views*on 09-13-19 [...] by Pernell Wiley on 09/12/2022 [address] [facility] XR CHEST 2 Von 09-05-2022 [...] ISAEL HANSEN Date: 2022-09-05 15:11 Normal [facility] XR KUB 1 VIEWon 09-05-2022 XR [...] by: ISAEL HANSEN Date: 2022-09-05 15:10 Normal [facility] AMYLASEon 09-03-2022 Amylase [Catalytic activity/Vol] 34 U/L Normal 25-115 [facility] Comment on above: Performed By: #### L IPA, CMP, CMADM, BNP, GRACIELA #### [facility] [address] [place] [address] Dr. Yonny Meza BNPon 09-03-2022 Natriuretic peptide B (Bld) [Mass/Vol] 241.0 pg/mL Normal <=1,800.0 [facility] Comment on above: Performed By: #### L IPA, CMP, CMADM, BNP, GRACIELA #### [facility] [address] [place] [address] Dr. Yonny Meza CARDIAC SRINIVASA ADMITon 023 CK [Catalytic activity/Vol] 154 U/L Normal 26-192 [facility] Comment on above: Performed By: #### L IPA, CMP, CMADM, BNP, GRACIELA #### [facility] [address] [place] [address] [address] Yonny Meza CK.MB [Mass/Vol] 1.42 ng/mL Normal <=3.60 [facility] Comment on above: Performed By: #### L IPA, CMP, CMADM, BNP, GRACIELA #### [facility] [address] [place] [address] Dr. Yonny Meza HSTROP 13.9 pg/mL Normal 4.0-51.3 [facility] Comment on above: Result Comment: CUT- OFF POINTS HAVE BEEN ESTABLISHED BASED ON THE FOURTH UNIVERSAL DEFINITIONS OF MYOCARDIAL INFARCTION. THE UPPER REFERENCE LIMIT (URL) OF TROPONIN, DEFINED THE 99TH PERCENTILE OF cTnI DISTRIBUTION IN A REFERENCE POPULATION, HAS BEEN CONFIRMED THE DECISION THRESHOLD FOR ME DIAGNOSIS. Performed By: #### L IPA, CMP, CMADM, BNP, GRACIELA #### [facility] [address] [place] [address] Dr. Yonny Meza DARION 63 ng/mL Normal 9-82 [facility] Comment on above: Performed By: #### L IPA, CMP, CMADM, BNP, GRACIELA #### [facility] [address] [place] [address] Dr. Yonny Meza CBC AUTO DIFFon 09-03-2022 BASO # 0.0 103/ul Normal 0.0-0.1 [facility] Comment on above: Performed By: #### L IPA, CMP, CMADM, BNP, GRACIELA #### [facility] [address] [place] [address] Dr. Yonny Meza Basophils/100 WBC (Bld) 0.4 % Normal 0.2-2.0 [facility] Comment on above: Performed By: #### L IPA, CMP, CMADM, BNP, GRACIELA #### [facility] [address] [place] [address] Dr. Yonny Meza EO # 0.1 103/ul Normal 0.0-0.7 [facility] Comment on above: Performed By: #### L IPA, CMP, CMADM, BNP, GRACIELA #### [facility] [address] [place] [address] Dr. Yonny Meza Eosinophils/100 WBC (Bld) 1.6 % Normal 0.9-7.0 [facility] Comment on above: Performed By: #### L IPA, CMP, CMADM, BNP, GRACIELA #### [facility] [address] [place] [address] Dr. Yonny Meza Erythrocyte distribution width (RBC) [Ratio] 12.6 % Normal 11.0-15.0 [facility] Comment on above: Performed By: #### L IPA, CMP, CMADM, BNP, GRACIELA #### [facility] [address] [place] [address] Dr. Yonny Meza Hematocrit (Bld) [Volume fraction] 38.9 % Normal 36.0-48.0 [facility] Comment on above: Performed By: #### L IPA, CMP, CMADM, BNP, GRACIELA #### [facility] [address] [place] [address] Dr. Yonny Meza Hemoglobin (Bld) [Mass/Vol] 13.0 g/dL Normal 12.0-16.0 [facility] Comment on above: Performed By: #### L IPA, CMP, CMADM, BNP, GRACIELA #### [facility] [address] [place] [address] Dr. Yonny Meza IG # 0.02 10e3/ul Normal 0.00-0.03 [facility] Comment on above: Performed By: #### L IPA, CMP, CMADM, BNP, GRACIELA #### [facility] [address] [place] [address] Dr. Yonny Meza IG % 0.3 % Normal 0.0-0.5 [facility] Comment on above: Performed By: #### L IPA, CMP, CMADM, BNP, GRACIELA #### [facility] [address] [place] [address] Dr. Yonny Meza LYMPH # 2.0 103/ul Normal 1.2-3.8 [facility] Comment on above: Performed By: #### L IPA, CMP, CMADM, BNP, GRACIELA #### [facility] [address] [place] [address] Dr. Yonny Meza Lymphocytes/100 WBC (Bld) 25.3 % Normal 20.5-60.0 [facility] Comment on above: Performed By: #### L IPA, CMP, CMADM, BNP, GRACIELA #### [facility] [address] [place] [address] Dr. Yonny Meza MANUAL DIFF REQ NO Normal [facility] Comment on above: Performed By: #### L IPA, CMP, CMADM, BNP, GRACIELA #### [facility] [address] [place] [address] Dr. Yonny Meza MCH (RBC) [Entitic mass] 31.8 pg Normal 26.7-34.0 [facility] Comment on above: Performed By: #### L IPA, CMP, CMADM, BNP, GRACIELA #### [facility] [address] [place] [address] Dr. Yonny Meza MCHC (RBC) [Mass/Vol] 33.4 g/dL Normal 29.9-35.2 [facility] Comment on above: Performed By: #### L IPA, CMP, CMADM, BNP, GRACIELA #### [facility] [address] [place] [address] Dr. Yonny Meza MCV (RBC) [Entitic vol] 95.1 fL Normal 81.0-99.0 [facility] Comment on above: Performed By: #### L IPA, CMP, CMADM, BNP, GRACIELA #### [facility] [address] [place] [address] Dr. Yonny Meza MONO # 0.9 103/ul Critically high 0.3-0.8 [facility] Comment on above: Performed By: #### L IPA, CMP, CMADM, BNP, GRACIELA #### [facility] [address] [place] [address] Dr. Yonny Meza Monocytes/100 WBC (Bld) 11.5 % Normal 1.7-12.0 [facility] Comment on above: Performed By: #### L IPA, CMP, CMADM, BNP, GRACIELA #### [facility] [address] [place] [address] Dr. Yonny Meza NEUT # 4.8 103/ul Normal 1.4-6.5 [facility] Comment on above: Performed By: #### L IPA, CMP, CMADM, BNP, GRACIELA #### [facility] [address] [place] [address] Dr. Yonny Meza Neutrophils/100 WBC (Bld) 60.9 % Normal 43.0-75.0 [facility] Comment on above: Performed By: #### L IPA, CMP, CMADM, BNP, GRACIELA #### [facility] [address] [place] [address] [address] Yonny Meza Platelet mean volume (Bld) [Entitic vol] 10.1 fL Normal 9.5-13.5 [facility] Comment on above: Performed By: #### L IPA, CMP, CMADM, BNP, GRACIELA #### [facility] [address] [place] [address] Dr. Yonny Meza PLT 252 103/ul Normal 150-450 [facility] Comment on above: Performed By: #### L IPA, CMP, CMADM, BNP, GRACIELA #### [facility] [address] [place] [address] Dr. Yonny Meza RBC 4.09 106/ul Critically low 4.20-5.40 [facility] Comment on above: Performed By: #### L IPA, CMP, CMADM, BNP, GRACIELA #### [facility] [address] [place] [address] Dr. Yonny Meza WBC 7.9 103/ul Normal 4.0-11.0 [facility] Comment on above: Performed By: #### L IPA, CMP, CMADM, BNP, GRACIELA #### [facility] [address] [place] [address] ABD/PELVIS WO CONon [...] HATTIE [place] Date: 2022-09-03 01:11 Normal [facility] ER URINE PROFILEon 3 Bilirubin Ql (U) Negative Normal NEGATIVE [facility] Comment on above: Performed By: #### L IPA, CMP, CMADM, BNP, GRACIELA #### [facility] [address] [place], [place] [address] Dr. Yonny Meza Clarity (U) CLEAR Normal CLEAR [facility] Comment on above: Performed By: #### L IPA, CMP, CMADM, BNP, GRACIELA #### [facility] [address] [place], [place] [address] Dr. Yonny Meza Color (U) LT. YELLOW Normal YELLOW [facility] Comment on above: Performed By: #### L IPA, CMP, CMADM, BNP, GRACIELA #### [facility] [address] [place] [address] [address] Yonny PATEL A micrscopic examina tion will be performed if indicated. Normal [facility] Comment on above: Performed By: #### L IPA, CMP, CMADM, BNP, GRACIELA #### [facility] [address] [place] [address] [address] Yonny Meza Glucose Ql (U) Negative Normal NEGATIVE [facility] Comment on above: Performed By: #### L IPA, CMP, CMADM, BNP, GRACIELA #### [facility] [address] [place] [address] [address] Yonny Meza Hemoglobin Ql (U) Negative Normal NEGATIVE [facility] [place] [facility] Comment on above: Performed By: #### L IPA, CMP, CMADM, BNP, GRACIELA #### [facility] [address] [place] [address] [address] Yonny Meza Ketones Ql (U) Negative Normal NEGATIVE [facility] Comment on above: Performed By: #### L IPA, CMP, CMADM, BNP, GRACIELA #### [facility] [address] [place] [address] [address] Yonny Meza LEUKOCYTES Negative Normal NEGATIVE [facility] Comment on above: Performed By: #### L IPA, CMP, CMADM, BNP, GRACIELA #### [facility] [address] [place] [address] [address] Yonny Meza Nitrite Ql (U) Negative Normal NEGATIVE [facility] Comment on above: Performed By: #### L IPA, CMP, CMADM, BNP, GRACIELA #### [facility] [address] [place] [address] [address] Yonny Meza pH (U) 7.0 [pH] Normal 5-9 [facility] Comment on above: Performed By: #### L IPA, CMP, CMADM, BNP, GRACIELA #### [facility] [address] [place] [address] [address] Yonny Meza SPEC GRAVITY 1.015 Normal 1.005-<=1. 025 [facility] Comment on above: Performed By: #### L IPA, CMP, CMADM, BNP, GRACIELA #### [facility] [address] [place] [address] Dr. Yonny Meza UA PROTEIN Negative Normal NEGATIVE/ TRACE [facility] Comment on above: Performed By: #### L IPA, CMP, CMADM, BNP, GRACIELA #### [facility] [address] [place] [address] Dr. Yonny Meza UR MICRO IND NOT INDICATED Normal [facility] Comment on above: Performed By: #### L IPA, CMP, CMADM, BNP, GRACIELA #### [facility] [address] [place] [address] Dr. Yonny Meza Urobilinogen Qn (U) 0.2 {Arnaud'U}/dL Normal 0.2 - 1. 0 [facility] Comment on above: Performed By: #### L IPA, CMP, CMADM, BNP, GRACIELA #### [facility] [address] [place] [address] Dr. Yonny Meza LACTATE/LACTIC ACIDon 2022 Lactate [Moles/Vol] 2.3 mmol/L Critically high 0.4-2.0 [facility] Comment on above: Performed By: #### L ACT #### [facility] [address] [place] [address] Dr. Yonny Meza Lactate [Moles/Vol] 2.2 mmol/L Critically high 0.4-2.0 [facility] Comment on above: Performed By: #### L IPA, CMP, CMADM, BNP, GRACIELA #### [facility] [address] [place] [address] Dr. Yonny Meza LIPASEon 09-03-2022 Lipase [Catalytic activity/Vol] 88.0 U/L Normal 73.0-393.0 [facility] Comment on above: Performed By: #### L IPA, CMP, CMADM, BNP, GRACIELA #### [facility] [address] [place] [address] Dr. Yonny Meza PROF 14(COMP METB)on 023 Albumin [Mass/Vol] 3.3 g/dL Critically low 3.4-5.0 [facility] Comment on above: Performed By: #### L IPA, CMP, CMADM, BNP, GRACIELA #### [facility] [address] [place] [address] Dr. Yonny Meza Albumin/Globulin [Mass ratio] 0.9 {ratio} Normal [facility] Comment on above: Performed By: #### L IPA, CMP, CMADM, BNP, GRACIELA #### [facility] [address] [place] [address] [address] Yonny Meza ALP [Catalytic activity/Vol] 122 U/L Critically high 46-116 [facility] Comment on above: Performed By: #### L IPA, CMP, CMADM, BNP, GRACIELA #### [facility] [address] [place] [address] Dr. Yonny Meza ALT [Catalytic activity/Vol] 21 U/L Normal 14-59 [facility] Comment on above: Performed By: #### L IPA, CMP, CMADM, BNP, GRACIELA #### [facility] [address] [place] [address] Dr. Yonny Meza Anion gap [Moles/Vol] 12.4 mmol/L Normal [facility] Comment on above: Performed By: #### L IPA, CMP, CMADM, BNP, GRACIELA #### [facility] [address] [place] [address] Dr. Yonny Meza AST [Catalytic activity/Vol] 24 U/L Normal 15-37 [facility] Comment on above: Performed By: #### L IPA, CMP, CMADM, BNP, GRACIELA #### [facility] [address] [address] [address] Yonny Meza Bilirubin [Mass/Vol] 0.4 mg/dL Normal 0.2-1.0 [facility] Comment on above: Performed By: #### L IPA, CMP, CMADM, BNP, GRACIELA #### [facility] [address] [place] [address] Dr. Yonny Meza Calcium [Mass/Vol] 8.7 mg/dL Normal 8.5-10.1 [facility] Comment on above: Performed By: #### L IPA, CMP, CMADM, BNP, GRACIELA #### [facility] [address] [address] [address] Yonny Meza Chloride [Moles/Vol] 105 mmol/L Normal 98-107 [facility] Comment on above: Performed By: #### L IPA, CMP, CMADM, BNP, GRACIELA #### [facility] [address] [address] [address] Yonny Meza CO2 [Moles/Vol] 28.0 mmol/L Normal 21.0-32.0 [facility] Comment on above: Performed By: #### L IPA, CMP, CMADM, BNP, GRACIELA #### [facility] [address] [place] [address] Dr. Yonny Meza Creatinine [Mass/Vol] 1.11 mg/dL Critically high 0.55-1.02 [facility] Comment on above: Performed By: #### L IPA, CMP, CMADM, BNP, GRACIELA #### [facility] [address] [place] [address] Dr. Yonny Meza EGFR-AF [place]IZ[place] 58 mL/min/1.73m2 Critically low >=60 [facility] Comment on above: Performed By: #### L IPA, CMP, CMADM, BNP, GRACIELA #### [facility] [address] [place] [address] Dr. Yonny Meza EGFR-NON AF [place]IZEN OF [place] 48 mL/min/1.73m2 Critically low >=60 [facility] Comment on above: Performed By: #### L IPA, CMP, CMADM, BNP, GRACIELA #### [facility] [address] [address] [address] Yonny Meza Globulin (S) [Mass/Vol] 3.7 g/dL Normal [facility] Comment on above: Performed By: #### L IPA, CMP, CMADM, BNP, GRACIELA #### [facility] [address] [address] [address] Yonny Meza Glucose [Mass/Vol] 152 mg/dL Critically high 74-106 [facility] Comment on above: Performed By: #### L IPA, CMP, CMADM, BNP, GRACIELA #### [facility] [address] [address] [address] Yonny Meza Potassium [Moles/Vol] 3.4 mmol/L Critically low 3.5-5.1 [facility] Comment on above: Performed By: #### L IPA, CMP, CMADM, BNP, GRACIELA #### [facility] [address] [address] [address] Yonny Meza Protein [Mass/Vol] 7.0 g/dL Normal 6.4-8.2 [facility] Comment on above: Performed By: #### L IPA, CMP, CMADM, BNP, GRACIELA #### [facility] [address] [place] [address] Dr. Yonny Meza Sodium [Moles/Vol] 142 mmol/L Normal 136-145 [facility] Comment on above: Performed By: #### L IPA, CMP, CMADM, BNP, GRACIELA #### [facility] [address] [place] [address] Dr. Yonny Meza Urea nitrogen [Mass/Vol] 14.0 mg/dL Normal 7.0-18.0 [facility] Comment on above: Performed By: #### L IPA, CMP, CMADM, BNP, GRACIELA #### [facility] [address] [place] [address] Dr. Yonny Meza Urea nitrogen/Creatinine [Mass ratio] 12.6 mg/mg Normal [facility] Comment on above: Performed By: #### L IPA, CMP, CMADM, BNP, GRACIELA #### [facility] [address] [place] [address] Dr. Yonny Meza PROTIMEon 09-03-2022 INR Coag (PPP) [Relative time] 1.05 {INR} Normal [facility] Comment on above: Performed By: #### L IPA, CMP, CMADM, BNP, GRACIELA #### [facility] [address] [place] [address] Dr. Yonny Meza INR GUIDELINES SEE BELOW Normal [facility] Comment on above: Result Comment: ASCENCION RED INR: 2.0 - 3.0 CONDITIONS NOT LISTED BELOW 2.5 - 3.5 FOR PROSTHETIC HEART VALVE REPLACEMENT 2.5 - 3.5 RECURRENT THROMBOSIS Performed By: #### L IPA, CMP, CMADM, BNP, GRACIELA #### [facility] [address] [address] [address] Yonny Meza PT Coag (PPP) [Time] 11.1 s Normal 9.0-11.6 [facility] Comment on above: Performed By: #### L IPA, CMP, CMADM, BNP, GRACIELA #### [facility] [address] [place], [place] [address] Dr. Yonny Meza PTTon 09-03-2022 aPTT Coag (Bld) [Time] 26.7 s Normal 22.3-36.2 [facility] Comment on above: Performed By: #### L IPA, CMP, CMADM, BNP, GRACIELA #### [facility] [address] [address] [address] Yonny Meza XR CHEST 1 Von [...] by: HATTIE [place] Date: 2022-09-03 00:08 Normal [facility] MAMM SCREEN 3D RON CADon 06-06-2022 MAMM SCREEN 3D RON CAD Patient: LUMA RIBEIRO Exam Date: 06/06/2022 : 1945 Gender:F Ordering : DR ROC STEELE M.D. Admission #: [id number] Family : Order #: [id number] CLICK HERE TO VIEW EXAM RADIOLOGY REPORT [...] breast cancer at age 61. LOCATION: [facility] BREAST COMPOSITION: Scattered areas fibroglandular density. [...] PALPABLE LUMP SHOULD BE BIOPSIED. Dictated by: iLsa Frederick MD on 06/07/2022 at 08:06 Approved by: Lisa Frederick MD on 06/07/2022 at 08:09 Normal [facility] No Panel Informationon 12-16 Please click on the link to view the study images Normal -[facility] Work Phone: Radiologyon 12-03-2020 XR Pelvis and Hip - left 2 Views Normal [facility] Work Phone: MRI Humerus w/wo Contraston 11-20-2020 MRI Humerus w/wo Contrast Normal [facility] Work Phone: Otheron 02-13-2020 Interpreted by: BONIFACIO WARE 15:34MRN: [id number] Name: GEMALUMA STUDY:HIP, UNILATERAL W/PELVIS WHEN PERFORMED 2-3 VIEWS; Right;02/13/2020 1:58 pm INDICATION:pain. 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 No acute bony abnormality orperiprosthetic fracture appreciated. Electronically signed by: TASIA BIRD 10/15/20 15:34 Normal [facility] Work Phone: Complete Blood Count + Diffe rentialon 01-30-2020 Basophils (Bld) [#/Vol] 0.04 {x10E9/L} See Below [facility] Work Phone: Comment on above: Reference Range: 0.0 0 - 0.10 Basophils/100 WBC (Bld) 0.2 % 0.0 - 2.0 [facility] Work Phone: Eosinophils (Bld) [#/Vol] 0.01 {x10E9/L} [facility] Below [facility] Work Phone: Comment on above: Reference Range: 0.0 0 - 0.40 Eosinophils/100 WBC (Bld) 0.1 % 0.0 - 6.0 [facility] Work Phone: Erythrocyte distribution width (RBC) [Ratio] 13.1 % See Below [facility] Work Phone: Comment on above: Reference Range: 11. 5 - 14.5 Hematocrit (Bld) [Volume fraction] 34.8 % below low threshold See Below [facility] Work Phone: Comment on above: Reference Range: 36. 0 - 46.0 Hemoglobin (Bld) [Mass/Vol] 11.3 g/dL below low threshold See Below [facility] Work Phone: Comment on above: Reference Range: 12. 0 - 16.0 Lymphocytes (Bld) [#/Vol] 2.21 {x10E9/L} See Below [facility] Work Phone: Comment on above: Reference Range: 0.8 0 - 3.00 Lymphocytes/100 WBC (Bld) 12.5 % See Below [facility] Work Phone: [phone] Comment on above: Reference Range: 13. 0 - 44.0 MCHC (RBC) [Mass/Vol] 32.5 g/dL See Below [facility] Work Phone: [phone] Comment on above: Reference Range: 32. 0 - 36.0 MCV (RBC) [Entitic vol] 99 fL 80 - 100 [facility] Work Phone: [phone] Monocytes (Bld) [#/Vol] 1.82 {x10E9/L} above high threshold See Below [facility] Work Phone: [phone] Comment on above: Reference Range: 0.0 5 - 0.80 Monocytes/100 WBC (Bld) 10.3 % 2.0 - 10.0 [facility] Work Phone: [phone] Neutrophils/100 WBC (Bld) 76.3 % See Below [facility] Work Phone: [phone] Comment on above: Reference Range: 40. 0 - 80.0 Platelets (Bld) [#/Vol] 234 {x10E9/L} 150 - 450 [facility] Work Phone: [phone] RBC (Bld) [#/Vol] 3.52 {x10E12/L} below low threshold See Below [facility] Work Phone: [phone] Comment on above: Reference Range: 4.0 0 - 5.20 WBC (Bld) [#/Vol] 17.7 {x10E9/L} above high threshold 4.4 - 11.3 [facility] Work Phone: [phone] Complete Blood Count + Differential 0.6 % 0.0 - 0.9 [facility] Work Phone: [phone] Comment on above: Immature Granulocyte Count (IG) includes promyelocytes, myelocytes and metamyelocytes but does not include bands. Percent differential counts (%) should be interpreted in the context of the absolute cell counts (cells/L). Complete Blood Count + Differential 13.52 {x10E9/L} above high threshold See Below [facility] [facility] [place] Work Phone: Comment on above: Reference Range: 1.6 0 - 5.50 Metabolic Panelon 01-30-2020 Anion gap [Moles/Vol] 8 mmol/L below low threshold 10 - 20 [facility] [place] Work Phone: Calcium [Mass/Vol] 8.8 mg/dL 8.6 - 10.[address] [facility] [place] Work Phone: [phone] Chloride [Moles/Vol] 101 mmol/L 98 - 107 [facility] [place] Work Phone: [phone] CO2 [Moles/Vol] 32 mmol/L 21 - 32 [facility] [place] Work Phone: Creatinine [Mass/Vol] 1.00 mg/dL See Below [facility] [place] Work Phone: [phone] Comment on above: Reference Range: 0.5 0 - 1.05 Glucose [Mass/Vol] 128 mg/dL above high threshold 74 - 99 [facility] [place] Work Phone: [phone] Potassium [Moles/Vol] 4.2 mmol/L 3.5 - 5.3 [facility] [place] Work Phone: [phone] Sodium [Moles/Vol] 137 mmol/L 136 - 145 -[facility] [place] Work Phone: [phone] Urea nitrogen [Mass/Vol] 14 mg/dL 6 - 23 -[facility] [place] Work Phone: [phone] Otheron 01-30-2020 65 {mL/min/1.73m2} >[address] [facility] [place] Work Phone: [phone] Comment on above: CALCULATIONS OF TONE MATED GFR ARE PERFORMED USING THE MDRD STUDY EQUATION FOR THE IDMS-TRACEABLE CREATININE METHODS. CLIN CHEM 2007;53:766-72 54 {mL/min/1.73m2} Abnormal >60 [facility] Work Phone: Otheron 01-29-2020 Interpreted by: OUZZTR96/01/20 15:21MRN: [id number] Name: LUMA RIBEIRO STUDY:HIP, UNILATERAL W/PELVIS WHEN PERFORMED 2-3 VIEWS; 01/29/2020 12:25 pm INDICATION:s/p right ROSSANA. COMPARISON:01/16/2020 ORDERING CLINICIAN:TASIA BIRD FINDINGS:Pelvis and right hip, three views Interval right total hip arthroplasty noted without periprostheticfracture or lucency. There is no dislocation. IMPRESSION:Right total hip arthroplasty without immediate complicationsElectronically signed by: RAJIV 01/30/20 15:21 Normal [facility] Work Phone: XR Pelvis 1 or 2 views Please click on the link to view the study images Normal [facility] Work Phone: Coronavirus 2019 RNA by PCR, Screening Asymptomticon 01-27-2020 Coronavirus 2019 RNA by PCR, Screening Asymptomtic NOT DETECTED See Below [facility] Work Phone: Comment on above: [...] make patient management decisions.Fact sheet for providers: https://www.fda.gov/media/026045/downloadFact sheet for patients: https://www.fda.gov/media/298598/downloadThis test has received FDA Emergency Use Authorization (EUA) and has been verified by [facility] ([facility]). This test is only authorized for the duration of time that circumstances exist to justify the authorization of the emergency use of in vitro diagnostic tests for the detection of SARS-CoV-2 virus and/or diagnosis of COVID-19 infection under section 564(b)(1) of the Act, 21 U.S.C. 360bbb-3(b)(1), unless the authorization is terminated or revoked sooner. [facility] is certified under CLIA-88 as qualified to perform high complexity testing. Testing is performed in the [facility] laboratories located at [address] [place] [address]. Activated Partial Thrombopla stin Timeon 01-20-2020 aPTT Coag (PPP) [Time] 29 {sec} 25 - 35 [facility] Work Phone: Comment on above: THE APTT IS NO LONGE R USED FOR MONITORING UNFRACTIONATED HEPARIN THERAPY. FOR MONITORING HEPARIN THERAPY, USE THE HEPARIN ASSAY. Complete Blood Count + Diffe rentialon 01-20-2020 Basophils (Bld) [#/Vol] 0.04 {x10E9/L} See Below [facility] Work Phone: Comment on above: Reference Range: 0.0 0 - 0.10 Basophils/100 WBC (Bld) 0.5 % 0.0 - 2.0 [facility] Work Phone: Eosinophils (Bld) [#/Vol] 0.09 {x10E9/L} See Below [facility] Work Phone: Comment on above: Reference Range: 0.0 0 - 0.40 Eosinophils/100 WBC (Bld) 1.0 % 0.0 - 6.0 [facility] Work Phone: [phone] Erythrocyte distribution width (RBC) [Ratio] 12.9 % See Below [facility] Work Phone: Comment on above: Reference Range: 11. 5 - 14.5 Hematocrit (Bld) [Volume fraction] 44.6 % See Below [facility] [place] Work Phone: Comment on above: Reference Range: 36. 0 - 46.0 Hemoglobin (Bld) [Mass/Vol] 14.5 g/dL See Below [facility] [place] Work Phone: [phone] Comment on above: Reference Range: 12. 0 - 16.0 Lymphocytes (Bld) [#/Vol] 3.41 {x10E9/L} above high threshold See Below [facility] [place] Work Phone: [phone] Comment on above: Reference Range: 0.8 0 - 3.00 Lymphocytes/100 WBC (Bld) 38.4 % See Below [facility] Work Phone: Comment on above: Reference Range: 13. 0 - 44.0 MCHC (RBC) [Mass/Vol] 32.5 g/dL See Below [facility] [place] Work Phone: [phone] Comment on above: Reference Range: 32. 0 - 36.0 MCV (RBC) [Entitic vol] 100 fL 80 - 100 [facility] Work Phone: [phone] Monocytes (Bld) [#/Vol] 0.81 {x10E9/L} above high threshold See Below [facility] [place] Work Phone: [phone] Comment on above: Reference Range: 0.0 5 - 0.80 Monocytes/100 WBC (Bld) 9.1 % 2.0 - 10.0 [facility] [place] Work Phone: [phone] (Bld) [#/Vol] 4.49 {x10E9/L} See Below [facility] [place] Work Phone: [phone] Comment on above: Reference Range: 1.6 0 - 5.50 Neutrophils/100 WBC (Bld) 50.7 % See Below [facility] Work Phone: Comment on above: Reference Range: 40. 0 - 80.0 Platelets (Bld) [#/Vol] 261 {x10E9/L} 150 - 450 [facility] Work Phone: [phone] RBC (Bld) [#/Vol] 4.48 {x10E12/L} See Below [facility] Work Phone: [phone] Comment on above: Reference Range: 4.0 0 - 5.20 WBC (Bld) [#/Vol] 8.9 {x10E9/L} 4.4 - 11.3 [facility] Work Phone: [phone] Complete Blood Count + Differential 0.3 % 0.0 - 0.9 [facility] Work Phone: [phone] Comment on above: Immature Granulocyte Count (IG) includes promyelocytes, myelocytes and metamyelocytes but does not include bands. Percent differential counts (%) should be interpreted in the context of the absolute cell counts (cells/L). Fructosamine, Serumon 2019 Fructosamine [Moles/Vol] 265 umol/L 0-285 [facility] Work Phone: Comment on above: Published reference interval for apparently healthy subjectsbetween age 20 and 60 is 205 - 285 umol/L and in a poorlycontrolled diabetic population is 228 - 563 umol/L with amean of 396 umol/L. Hematologyon 01-20-2020 INR Coag (PPP) [Relative time] 1.1 {INR} 0.9 - 1.1 [facility] Work Phone: [phone] PT Coag (PPP) [Time] 13.0 {sec} See Below [facility] Work Phone: [phone] Comment on above: Reference Range: 10. 1 [...] enter For [facility] [place] Work Phone: [phone] CO2 [Moles/Vol] 32 mmol/L 21 - 32 -[facility] [place] Work Phone: Creatinine [Mass/Vol] 1.01 mg/dL See Below - [facility] [place] Work Phone: Comment on above: Reference Range: 0.5 0 - 1.05 Glucose [Mass/Vol] 88 mg/dL 74 - [address] [facility] [place] Work Phone: Potassium [Moles/Vol] 3.9 mmol/L 3.5 - 5.3 - [facility] [place] Work Phone: Protein [Mass/Vol] 7.6 g/dL 6.4 - 8.[address] [facility] [place] Work Phone: Sodium [Moles/Vol] 142 mmol/L 136 - [address] [facility] [place] Work Phone: Urea nitrogen [Mass/Vol] 15 mg/dL 6 - 23 -[facility] [place] Work Phone: Otheron 01-20-2020 100 1 -[facility] [place] Work Phone: [phone] [facility] [place] Work Phone: [phone] 1 [facility] [place] Work Phone: [phone] [facility] [place] Work Phone: [phone] [facility] [place] Work Phone: [phone] 1 [facility] [place] Work Phone: [phone] Sinus rhythm with occasional premature ventricular complexes [facility] [place] Work Phone: [phone] 1 [facility] [place] Work Phone: [phone] [email or web address] 1:8080/ musescripts/[email or web address]?Ret rieveTestByDateTime?Patient OM=[id number]&Date= 0&Time=14%3a54%3a12%3a00&Te stType=ECG&Site=11&OutputTy pe=PDF&Ext=PDF -[facility] [place] Work Phone: [phone] 1 [facility] [place] Work Phone: [phone] 1 [facility] [place] Work Phone: [phone] 1 [facility] [place] Work Phone: [phone] 1 [facility] [place] Work Phone: [phone] 1 [facility] [place] Work Phone: [phone] 1 [facility] [place] Work Phone: [phone] Albumin BCP dye [Mass/Vol] 4.4 g/dL 3.4 - 5.0 [facility] [place] Work Phone: [phone] ALT With P-5'-P [Catalytic activity/Vol] 16 U/L 7 - 45 [facility] [place] Work Phone: Comment on above: Patients treated wit h Sulfasalazine may generate falsely decreased results for ALT. AST With P-5'-P [Catalytic activity/Vol] 23 U/L 9 - 39 [facility] Work Phone: 65 {mL/min/1.73m2} >[address] [facility] [facility] Work Phone: Comment on above: CALCULATIONS OF TONE MATED GFR ARE PERFORMED USING THE MDRD STUDY EQUATION FOR THE IDMS-TRACEABLE CREATININE METHODS. CLIN CHEM 2007;53:766-72 54 {mL/min/1.73m2} Abnormal >[address] For [employer] Phone: Urinalysison 01-20-2020 Appearance (U) HAZY CLEAR -[facility] Phone: Color (U) YELLOW See Below -[facility] [employer] [place] [facility] Work Phone: [phone] Comment on above: Reference Range: STR AW,YELLOW Glucose Ql (U) Negative NEGATIVE [facility] Work Phone: [phone] Ketones Ql (U) Negative NEGATIVE [facility] Phone: [phone] Leukocyte esterase Test strip Ql (U) Negative NEGATIVE -[place] [facility] Phone: pH (U) 7.0 [pH] 5.0 - 8.0 [facility] Work Phone: [phone] Protein (U) [Mass/Vol] Negative NEGATIVE -[facility] [employer] [place] [facility] Work Phone: [phone] RBC (U) [#/Vol] Negative NEGATIVE [facility] Work Phone: [phone] Specific gravity (U) [Rel density] 1.019 See Below -[facility] [place] [employer] Phone: [phone] Comment on above: Reference Range: 1.0 05 - 1.035 Urinalysis Negative NEGATIVE [facility] Work Phone: Urinalysis 2.0 mg/dL above high threshold 0.0 - 1.9 [facility] Work Phone: Comment on above: [...] Otheron 01-16-2020 Interpreted by: AGNES ALVARADO01/16/20 13:42MRN: [id number] Name: LUMA RIBEIRO STUDY:HIP, UNILATERAL W/PELVIS WHEN PERFORMED 2-3 VIEWS; Right; 01/16/20201:39 pm INDICATION:pain. ORDERING CLINICIAN:HARSHAL ALVARADO FINDINGS:AP lateral right hip x-ray shows end-stage svpjmagjcjnbgpukmz-qt-setp arthrosis noted. 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 Electronically signed by: HARSHAL ALVARADO 01/16/20 13:42 Normal [facility] Work Phone: Vital Signs Date Time Vital Sign Value Performing Clinician Facility 2024 15:00-0400 Diastolic blood pressure 90 mm[Hg] Amber Hawley MD Work Phone: [facility] 2024 15:00-0400 Systolic blood pressure 130 mm[Hg] Amber Hawley MD Work Phone: [facility] 2024 14:11-0400 Body height 162.6 cm Amber Hawley MD Work Phone: [facility] 2024 14:11-0400 Body mass index (BMI) [Ratio] 44.97 kg/m2 Amber Hawley MD Work Phone: [facility] 2024 14:11-0400 Body weight 118.84 kg Amber Hawley MD Work Phone: [facility] 2024 14:11-0400 Heart rate 72 /min Amber Hawley MD Work Phone: [facility] 10-16-2024 11:33-0400 Body height 157.5 cm Kamila Pride [employer] Work Phone: [facility] 10-16-2024 11:33-0400 Body mass index (BMI) [Ratio] 48.47 kg/m2 Kamila Bigg [employer] Work Phone: [facility] 10-16-2024 11:33-0400 Body weight 120.2 kg Kamila Espitiavely [employer] Work Phone: [facility] 10-16-2024 11:33-0400 Diastolic blood pressure 101 mm[Hg] Kamila [place] [employer] Work Phone: [facility] 10-16-2024 11:33-0400 Heart rate 77 /min Kamila Bigg [employer] Work Phone: [facility] 10-16-2024 11:33-0400 Respiratory rate 17 /min Kamila [place] [employer] Work Phone: [facility] 10-16-2024 11:33-0400 SaO2% (BldA) [Mass fraction] 96 % Kamila Espitiavely [employer] Work Phone: [facility] 10-16-2024 11:33-0400 Systolic blood pressure 182 mm[Hg] Kamila [place] [employer] Work Phone: [facility] 10-10-2024 15:03-0400 Body height 157.5 cm Alex Alfredo DPM Work Phone: [facility] 10-10-2024 15:03-0400 Body mass index (BMI) [Ratio] 49.02 kg/m2 Alex Alfredo DPM Work Phone: [facility] 10-10-2024 15:03-0400 Body weight 121.56 kg Alex Alfredo DPM Work Phone: [facility] 10-10-2024 15:03-0400 Respiratory rate 18 /min Alex Alfredo DPM Work Phone: [facility] 09-18-2024 11:00-0400 Body height 162.[address] 09-18-2024 11:00-0400 Body mass index (BMI) [Ratio] 46.17 kg/m2 [address] 09-18-2024 11:00-0400 Body weight 122.[address] 09-18-2024 11:00-0400 Diastolic blood pressure 86 mm[Hg] [address] 09-18-2024 11:00-0400 Systolic blood pressure 124 mm[Hg] [address] 09-18-2024 10:44-0400 Diastolic blood pressure 78 mm[Hg] [address] 09-18-2024 10:44-0400 Heart rate 67 /min [address] 09-18-2024 10:44-0400 Systolic blood pressure 122 mm[Hg] [address] 08-19-2024 11:24-0400 Body height 157.5 cm Rco Steele MD Work Phone: [facility] 08-19-2024 11:24-0400 Body mass index (BMI) [Ratio] 49.02 kg/m2 Roc Steele MD Work Phone: [facility] 08-19-2024 11:24-0400 Body weight 121.56 kg Roc Steele MD Work Phone: [facility] 08-19-2024 11:24-0400 Diastolic blood pressure 86 mm[Hg] Roc Steele MD Work Phone: [facility] 08-19-2024 11:24-0400 Heart rate 89 /min Roc Steele MD Work Phone: [facility] 08-19-2024 11:24-0400 SaO2% (BldA) [Mass fraction] 96 % Roc Steele MD Work Phone: [facility] 08-19-2024 11:24-0400 Systolic blood pressure 138 mm[Hg] Roc Steele MD Work Phone: [facility] 08-01-2024 14:45-0400 Body height 157.5 cm Alex Alfredo DPM Work Phone: [facility] 08-01-2024 14:45-0400 Body mass index (BMI) [Ratio] 48.65 kg/m2 Alex Alfredo DPM Work Phone: [facility] 08-01-2024 14:45-0400 Body weight 120.66 kg Alex Alfredo DPM Work Phone: [facility] 08-01-2024 14:45-0400 Respiratory rate 16 /min Alex Alfredo DPM Work Phone: [facility] 08-01-2024 13:31-0400 Body height 157.5 cm Kamila Pride [employer] Work Phone: [facility] 08-01-2024 13:31-0400 Body mass index (BMI) [Ratio] 48.73 kg/m2 Kamila [place] [employer] Work Phone: [facility] 08-01-2024 13:31-0400 Body weight 120.84 kg Kamila Bgig [employer] Work Phone: [facility] 08-01-2024 13:31-0400 Diastolic blood pressure 82 mm[Hg] Kamila [place] [employer] Work Phone: [facility] 08-01-2024 13:31-0400 Heart rate 88 /min Kamila [place] [employer] Work Phone: [facility] 08-01-2024 13:31-0400 Respiratory rate 17 /min Kamila Bigg [employer] Work Phone: [facility] 08-01-2024 13:31-0400 SaO2% (BldA) [Mass fraction] 99 % Kamila [place] [employer] Work Phone: [facility] 08-01-2024 13:31-0400 Systolic blood pressure 134 mm[Hg] Kamila Pride [employer] Work Phone: [facility] 07-15-2024 11:25-0400 Body height 162.6 cm Amber Hawley MD Work Phone: [facility] 07-15-2024 11:25-0400 Body mass index (BMI) [Ratio] 46.17 kg/m2 Amber Hawley MD Work Phone: [facility] 07-15-2024 11:25-0400 Body weight 122.02 kg Amber Hawley MD Work Phone: [facility] 07-15-2024 11:25-0400 Diastolic blood pressure 88 mm[Hg] Amber Hawley MD Work Phone: [facility] 07-15-2024 11:25-0400 Heart rate 93 /min Amber Hawley MD Work Phone: [facility] 07-15-2024 11:25-0400 Systolic blood pressure 128 mm[Hg] Amber Hawley MD Work Phone: [facility] 07-11-2024 12:59-0400 Body height 157.5 cm Kamila Pride [employer] Work Phone: [facility] 07-11-2024 12:59-0400 Body mass index (BMI) [Ratio] 49.93 kg/m2 Kamila Pride [employer] Work Phone: [facility] 07-11-2024 12:59-0400 Body weight 123.83 kg Kamila Pride [employer] Work Phone: [facility] 07-11-2024 12:59-0400 Diastolic blood pressure 80 mm[Hg] Kamila Pride [employer] Work Phone: [facility] 07-11-2024 12:59-0400 Heart rate 87 /min Kamila Pride [employer] Work Phone: [facility] 07-11-2024 12:59-0400 SaO2% (BldA) [Mass fraction] 97 % Kamila [place] [employer] Work Phone: [facility] 07-11-2024 12:59-0400 Systolic blood pressure 130 mm[Hg] Kamila Bigg [employer] Work Phone: [facility] 07-03-2024 11:31-0500 Body height 157.5 cm Kamila Bigg [employer] Work Phone: [facility] 07-03-2024 11:31-0500 Body mass index (BMI) [Ratio] 50.22 kg/m2 Kamila [place] [employer] Work Phone: [facility] 07-03-2024 11:31-0500 Body weight 124.56 kg Kamila Bigg [employer] Work Phone: [facility] 07-03-2024 11:31-0500 Diastolic blood pressure 82 mm[Hg] Kamila Bigg [employer] Work Phone: [facility] 07-03-2024 11:31-0500 Heart rate 74 /min Kamila [place] [employer] Work Phone: [facility] 07-03-2024 11:31-0500 Respiratory rate 17 /min Kamila Bigg [employer] Work Phone: [facility] 07-03-2024 11:31-0500 SaO2% (BldA) [Mass fraction] 94 % Kamila Bigg [employer] Work Phone: [facility] 07-03-2024 11:31-0500 Systolic blood pressure 136 mm[Hg] Kamila Bigg [employer] Work Phone: [facility] 06-11-2024 11:07-0500 Body height 157.5 cm Kamila [place] [employer] Work Phone: [facility] 06-11-2024 11:07-0500 Body mass index (BMI) [Ratio] 49.2 kg/m2 Kamila Bigg [employer] Work Phone: [facility] 06-11-2024 11:07-0500 Body weight 122.02 kg Kamila [place] [employer] Work Phone: [facility] 06-11-2024 11:07-0500 Diastolic blood pressure 78 mm[Hg] Kamila Pride [employer] Work Phone: [facility] 06-11-2024 11:07-0500 Heart rate 76 /min Kamila Pride [employer] Work Phone: [facility] 06-11-2024 11:07-0500 Respiratory rate 17 /min Kamila Pride [employer] Work Phone: [facility] 06-11-2024 11:07-0500 SaO2% (BldA) [Mass fraction] 99 % Kamila Pride [employer] Work Phone: [facility] 06-11-2024 11:07-0500 Systolic blood pressure 134 mm[Hg] Kamila Pride [employer] Work Phone: [facility] 05-23-2024 14:37-0500 Body height 157.5 cm Alex Alfredo DPM Work Phone: [facility] 05-23-2024 14:37-0500 Body mass index (BMI) [Ratio] 50.3 kg/m2 Alex Alfredo DPM Work Phone: [facility] 05-23-2024 14:37-0500 Body weight 124.74 kg Alex Alfredo DPM Work Phone: [facility] 05-23-2024 14:37-0500 Respiratory rate 18 /min Alex Alfredo DPM Work Phone: [facility] 05-22-2024 10:11-0500 Body height 157.5 cm Kamila Pride [employer] Work Phone: [facility] 05-22-2024 10:11-0500 Body mass index (BMI) [Ratio] 50.33 kg/m2 Kamila Pride [employer] Work Phone: [facility] 05-22-2024 10:11-0500 Body weight 124.83 kg Kamila Bigg [employer] Work Phone: [facility] 05-22-2024 10:11-0500 Diastolic blood pressure 80 mm[Hg] Kamila [place] [employer] Work Phone: [facility] 05-22-2024 10:11-0500 Heart rate 77 /min Kamila Bigg [employer] Work Phone: [facility] 05-22-2024 10:11-0500 Respiratory rate 18 /min Kamila [place] [employer] Work Phone: [facility] 05-22-2024 10:11-0500 SaO2% (BldA) [Mass fraction] 99 % Kamila [place] [employer] Work Phone: [facility] 05-22-2024 10:11-0500 Systolic blood pressure 128 mm[Hg] Kamila [place] [employer] Work Phone: [facility] 05-15-2024 11:32-0500 Body height 157.5 cm Kamila Bigg [employer] Work Phone: [facility] 05-15-2024 11:32-0500 Body mass index (BMI) [Ratio] 48.54 kg/m2 Kamila [place] [employer] Work Phone: [facility] 05-15-2024 11:32-0500 Body weight 120.39 kg Kamila [place] [employer] Work Phone: [facility] 05-15-2024 11:32-0500 Diastolic blood pressure 76 mm[Hg] Kamila [place] [employer] Work Phone: [facility] 05-15-2024 11:32-0500 Heart rate 97 /min Kamila Bigg [employer] Work Phone: [facility] 05-15-2024 11:32-0500 Respiratory rate 18 /min Kamila Bigg [employer] Work Phone: [facility] 05-15-2024 11:32-0500 SaO2% (BldA) [Mass fraction] 98 % Kamila Bigg [employer] Work Phone: [facility] 05-15-2024 11:32-0500 Systolic blood pressure 126 mm[Hg] Kamila [place] [employer] Work Phone: [facility] 05-07-2024 10:53-0500 Body height 157.5 cm Kamila [place] [employer] Work Phone: [facility] 05-07-2024 10:53-0500 Body mass index (BMI) [Ratio] 48.87 kg/m2 Kamila [place] [employer] Work Phone: [facility] 05-07-2024 10:53-0500 Body weight 121.2 kg Kamila [place] [employer] Work Phone: [facility] 05-07-2024 10:53-0500 Diastolic blood pressure 82 mm[Hg] Kamila [place] [employer] Work Phone: [facility] 05-07-2024 10:53-0500 Heart rate 88 /min Kamila Cedar [place] [employer] Work Phone: [facility] 05-07-2024 10:53-0500 Respiratory rate 18 /min Kamila [place] [employer] Work Phone: [facility] 05-07-2024 10:53-0500 SaO2% (BldA) [Mass fraction] 95 % Kamila Bigg [employer] Work Phone: [facility] 05-07-2024 10:53-0500 Systolic blood pressure 130 mm[Hg] Kamila [place] [employer] Work Phone: [facility] 04-03-2024 08:32-0500 Body height 157.5 cm Kamila Bigg [employer] Work Phone: [facility] 04-03-2024 08:32-0500 Body mass index (BMI) [Ratio] 49.6 kg/m2 Kamila [place] [employer] Work Phone: [facility] 04-03-2024 08:32-0500 Body weight 123.02 kg Kamila Bigg [employer] Work Phone: [facility] 04-03-2024 08:32-0500 Diastolic blood pressure 80 mm[Hg] Kamila [place] [employer] Work Phone: [facility] 04-03-2024 08:32-0500 Heart rate 74 /min Kamila [place] [employer] Work Phone: [facility] 04-03-2024 08:32-0500 Respiratory rate 17 /min Kamila Bigg [employer] Work Phone: [facility] 04-03-2024 08:32-0500 SaO2% (BldA) [Mass fraction] 98 % Kamila Bigg [employer] Work Phone: [facility] 04-03-2024 08:32-0500 Systolic blood pressure 126 mm[Hg] Kamila Bigg [employer] Work Phone: [facility] 03-05-2024 11:19-0500 Body height 157.5 cm Kamila Bigg [employer]ER Work Phone: [facility] 03-05-2024 11:19-0500 Body mass index (BMI) [Ratio] 50.85 kg/m2 Kamila [place] [employer] Work Phone: [facility] 03-05-2024 11:19-0500 Body weight 126.1 kg Kamila Bigg [employer] Work Phone: [facility] 03-05-2024 11:19-0500 Diastolic blood pressure 76 mm[Hg] Kamila [place] [employer] Work Phone: [facility] 03-05-2024 11:19-0500 Heart rate 102 /min Kamila Bigg [employer]ER Work Phone: [facility] 03-05-2024 11:19-0500 SaO2% (BldA) [Mass fraction] 98 % Kamila Bigg [employer]ER Work Phone: [facility] 03-05-2024 11:19-0500 Systolic blood pressure 134 mm[Hg] Kamila [place] [employer] Work Phone: [facility] 02-22-2024 14:09-0400 Body height 157.5 cm Alex Alfredo DPM Work Phone: [facility] 02-22-2024 14:09-0400 Body mass index (BMI) [Ratio] 50.85 kg/m2 Alex Alfredo DPM Work Phone: [facility] 02-22-2024 14:09-0400 Body weight 126.1 kg Alex Alfredo DPM Work Phone: [facility] 02-22-2024 14:09-0400 Diastolic blood pressure 80 mm[Hg] Alex Brown DPM Work Phone: [facility] 02-22-2024 14:09-0400 Heart rate 82 /min Alex Brown DPM Work Phone: [facility] 02-22-2024 14:09-0400 Systolic blood pressure 126 mm[Hg] Alex Brown DPM Work Phone: [facility] 06-15-2023 14:42-0500 Body height 157.5 cm Alex Brown DPM Work Phone: [facility] 06-15-2023 14:42-0500 Body mass index (BMI) [Ratio] 50.48 kg/m2 Alex Brown DPM Work Phone: [facility] 06-15-2023 14:42-0500 Body weight 125.19 kg Alex Brown DPM Work Phone: [facility] 06-15-2023 14:42-0500 Diastolic blood pressure 82 mm[Hg] Alex Brown DPM Work Phone: [facility] 06-15-2023 14:42-0500 Heart rate 84 /min Alex Brown DPM Work Phone: [facility] 06-15-2023 14:42-0500 Systolic blood pressure 133 mm[Hg] Alex Brown DPM Work Phone: [facility] 06-01-2023 15:33-0500 Body height 157.5 cm Alex Brown DPM Work Phone: [facility] 06-01-2023 15:33-0500 Body mass index (BMI) [Ratio] 50.48 kg/m2 Alex Brown DPM Work Phone: [facility] 06-01-2023 15:33-0500 Body weight 125.19 kg Alex Alfredo DPM Work Phone: [facility] 06-01-2023 15:33-0500 Diastolic blood pressure 80 mm[Hg] Alex Alfredo DPM Work Phone: [facility] 06-01-2023 15:33-0500 Heart rate 79 /min Alex Alfredo DPM Work Phone: [facility] 06-01-2023 15:33-0500 Systolic blood pressure 130 mm[Hg] Alex Alfredo DPM Work Phone: [facility] 01-16-2020 15:36-0400 BMI (Body Mass Index) 46.35 kg/m2 Tasia [facility] [place] Work Phone: 01-16-2020 15:36-0400 Body weight 122.47 kg Tasia [facility] [place] Work Phone: 01-16-2020 15:36-0400 BSA (Body Surface Area) 2.22 m2 Tasia [facility] [place] Work Phone: 01-16-2020 15:36-0400 Height 162.56 cm Tasia [facility] [place] Work Phone: Encounters Encounter Date Encounter Type Care Provider Facility Start: 2024 End: 2024 Office outpatient visit 25 minutes Amber Hawley MD Work Phone: [facility] Comment on above: Encounter to discuss test results (Primary Dx); Uses roller walker; Palpitations; Mixed hyperlipidemia; Chest discomfort; CARO on CPAP; Paroxysmal supraventricular tachycardia; Never smoked cigarettes; Body mass index (BMI) 40.0-44.9, adult (Multi) Start: 2024 End: 2024 ambulatory [facility] Start: 11-04-2024 End: 11-04-2024 ambulatory Daron Sanchez MD Facility:[facility] Start: 10-16-2024 End: 10-16-2024 Bamboo flowsheet Kamila Pride [employer] Work Phone: [facility] Start: 10-16-2024 End: 10-16-2024 Bamboo flowsheet Kamila Pride [employer] Work Phone: [facility] Start: 10-16-2024 End: 10-16-2024 Office outpatient visit 15 minutes Kamila Pride [employer] Work Phone: [facility] Comment on above: Acute low back pain without sciatica, unspecified back pain laterality (Primary Dx) Start: 10-16-2024 End: 10-18-2024 Refjavier Steele MD Work Phone: [facility] Comment on above: 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 Start: 10-14-2024 End: 10-14-2024 ambulatory Daron Sanchez MD Facility:[facility] Start: 10-10-2024 End: 10-10-2024 Patient encounter [...] Department Unsolicited Start: 09-19-2024 End: 09-19-2024 ambulatory [facility] Start: 09-18-2024 End: 09-18-2024 Subsequent hospital visit by physician Jessica Dobbins Admin Room 1 [facility] Comment on above: Lightheadedness; Chest discomfort; Palpitations; Mixed hyperlipidemia Paroxysmal supravent ricular tachycardia; Abnormal EKG; Palpitations Start: 09-18-2024 End: 09-18-2024 ambulatory [facility] Start: 09-16-2024 End: 09-16-2024 ambulatory Daron Sanchez MD Facility: [facility] Start: 09-10-2024 End: 09-11-2024 Refill Kamila Pride [employer] Work Phone: [facility] Comment on [...] 08-01-2024 End: 08-01-2024 Bamboo flowsheet Kamila Pride [employer] Work Phone: [facility] Start: 08-01-2024 End: 08-01-2024 Bamboo flowsheet Kamila Pride [employer] Work Phone: [facility] Start: 08-01-2024 End: 08-01-2024 Office outpatient visit 25 minutes Kamila Pride [employer] Work Phone: [facility] Comment on above: SOB (shortness of br eath) (Primary Dx); Chronic cough; Lumbosacral spondylosis without myelopathy; Seasonal allergic rhinitis, unspecified trigger; Age-related osteoporosis without current pathological fracture (CMS/HCC) Start: 08-01-2024 End: 08-01-2024 ambulatory KAMILA PRIDE Not Available Start: 07-26-2024 End: 07-26-2024 ambulatory KAMILA PRIDE Not Available Start: 07-18-2024 End: 07-18-2024 Clinisync Result Encounter Roc Steele MD Work Phone: [facility] External Department Unsolicited Start: 07-18-2024 End: 07-18-2024 Clinisync Result Encounter Roc Steele MD Work Phone: [facility] External Department Unsolicited Start: 07-15-2024 End: 07-15-2024 Office consultation new/estab patient 60 min Amber Hawley MD Work Phone: [facility] Comment on above: [facility]; Paroxysmal supraventricular tachycardia (CMS-HCC); Abnormal EKG; Lightheadedness; Chest discomfort; Palpitations; Primary hypertension; Stenosis of carotid artery, unspecified laterality; Mixed hyperlipidemia; Stage 3a chronic kidney disease (Multi); Gastroesophageal reflux disease without esophagitis; At high risk for falls; Uses roller walker; Severe obesity (BMI >= 40) (Multi); Never smoked cigarettes Start: 07-15-2024 End: 07-15-2024 ambulatory [facility] Start: 07-11-2024 End: 07-11-2024 Assay of hemosiderin, quant Kamila Pride NP Work Phone: [facility] Start: 07-11-2024 End: 07-11-2024 Patient encounter procedure Kamila Pride NP Work Phone: [facility] Comment on above: Insomnia, unspecifie d type [...] 07-03-2024 End: 07-03-2024 Bamboo flowsheet Kamila Pride [employer] Work Phone: [facility] Start: 07-03-2024 End: 07-03-2024 Bamboo flowshien Pride [employer]ER Work Phone: [facility] Start: 07-03-2024 End: 07-03-2024 Office outpatient visit 25 minutes Kamila Pride [employer] Work Phone: [facility] Comment on above: Paroxysmal supravent ricular tachycardia (CMS/HCC) (Primary Dx); Primary insomnia; Acute congestive heart failure, unspecified heart failure type (CMS/HCC); Stage 3b chronic kidney disease (HCC) (CMS/HCC); Weakness; Other fatigue; Pain of right hip; Fall, initial encounter Start: 07-03-2024 End: 07-03-2024 ambulatory KAMILA PRIDE Not Available Start: 06-11-2024 End: 06-11-2024 Bamboo flowsheet Kamila Pride [employer]ER Work Phone: [facility] Start: 06-11-2024 End: 06-11-2024 Bamboo flowsheet Kamila Pride [employer] Work Phone: [facility] Start: 06-11-2024 End: 06-11-2024 Office outpatient visit 25 minutes Kamila Pride [employer] Work Phone: [facility] Comment on [...] 05-22-2024 End: 05-22-2024 Bamboo flowsheet Kamila Pride [employer] Work Phone: [facility] Start: 05-22-2024 End: 05-22-2024 Bamboo flowsheet Kamila Pride [employer] Work Phone: [facility] Start: 05-22-2024 End: 05-22-2024 Office outpatient visit 25 minutes Kamila Pride [employer] Work Phone: [facility] Comment on above: Stage 3b chronic kid javon disease (HCC) (CMS/HCC) (Primary Dx); Benign essential hypertension (CMS/HCC); Hypomagnesemia; Pneumonia of both lungs due to infectious organism, unspecified part of lung Start: 05-22-2024 End: 05-22-2024 ambulatory KAMILA PRIDE Not Available Start: 05-16-2024 End: 05-16-2024 Clinisync Result Encounter Kamila Pride [employer] Work Phone: [facility] External Department Unsolicited Start: 05-16-2024 End: 05-16-2024 Clinisync Result Encounter Kamila Pride [employer] Work Phone: [facility] External Department Unsolicited Start: 05-15-2024 End: 05-15-2024 Office outpatient visit 25 minutes Kamila Pride [employer] Work Phone: [facility] Comment on [...] Office outpatient visit 25 minutes Kamila Pride [employer] Work Phone: [facility] Comment on [...] Start: 04-29-2024 End: 04-29-2024 ambulatory Mala Sapp Facility:[facility] Start: 04-15-2024 End: 04-16-2024 Refill Kamila Pride [employer] Work Phone: [facility] Comment on above: Primary insomnia Start: 04-04-2024 End: 04-04-2024 Orders Only Kamila Pride [employer] Work Phone: [facility] Comment on above: Acute pulmonary omid a (CMS/HCC) (Primary Dx); Hypokalemia Start: 04-03-2024 End: 04-03-2024 Bamboo flowsheet Kamila Pride [employer] Work Phone: [facility] Start: 04-03-2024 End: 04-03-2024 Bamboo flowsheet Kamila Pride [employer] Work Phone: [facility] Start: 04-03-2024 End: 04-03-2024 ambulatory KAMILA PRIDE Not Available Start: 04-03-2024 End: 04-03-2024 Office outpatient visit 25 minutes Kamila Pride [employer] Work Phone: [facility] Comment on above: Acute cough (Primary Dx); Rib pain; Fall, initial encounter; Shortness of breath; Lumbosacral spondylosis without myelopathy; Pain of right hand; Right wrist pain; Acute non-recurrent sinusitis of other sinus Start: 04-03-2024 End: 04-03-2024 ambulatory KAMILA PRIDE Not Available Start: 03-07-2024 End: 03-07-2024 Bamboo flowsheet Waqas Dugan DO [facility] Start: 03-07-2024 End: 03-07-2024 Bamboo flowsheet Waqas Dugan DO Work Phone: [facility] [employer] REPLACED BY [facility] Start: 03-07-2024 End: 03-07-2024 Patient encounter procedure Bullopher Ritchie DO [facility] Phone[facility] Comment on above: Carpal tunnel syndro me on left (Primary Dx) Start: 03-07-2024 End: 03-07-2024 ambulatory WAQAS DUGAN Not Available Start: 03-05-2024 End: 03-05-2024 Bamboo flowsheet Kamila Pride [employer] Work Phone: [facility] Start: 03-05-2024 End: 03-05-2024 Bamboo flowsheet Kamila Pride [employer] Work Phone: [facility] Start: 03-05-2024 End: 03-05-2024 Office outpatient visit 25 minutes Kamila Pride [employer] Work Phone: [facility] Comment on above: Cellulitis of finger of left hand (Primary Dx); Flu vaccine need; Numbness of hand; Encounter for screening mammogram for malignant neoplasm of breast; Lymphadenopathy; Axillary pain, left; Ankylosing spondylitis of thoracic region ([facility]) Start: 03-05-2024 End: 03-05-2024 ambulatory KAMILA [...] Comment on above: Benign essential hyp ertension ([facility]) Start: 12-14-2023 End: 12-14-2023 ambulatory ALEX [...] 10-04-2022 Patient encounter procedure [facility] Work Phone: [facility] [place] Work Phone: Start: 10-04-[address] Roc Steele II Facility:[id number] Start: 09-05-2022 End: 09-05-[address] SARABJIT CORNEJO . Facility:[facility] Start: 09-03-2022 End: 09-03-2022 ambulatory SASHA DUTTA . Facility:[facility] Start: 06-06-2022 End: 06-07-[address] ROC STEELE Facility:[facility] Start: 12-16-2020 Patient encounter procedure Mone Weiss MD Work Phone: [facility] [place] Work Phone: Start: 11-25-2020 Chart Update Tasia Crawford Work Phone: [facility] [place] Work Phone: Start: 10-15-2020 Patient encounter procedure Carmen Bird MD Work Phone: [facility] [place] Work Phone: Start: 02-13-2020 Patient encounter procedure Tasia Bird [facility] [place] Work Phone: Start: 01-16-2020 Patient encounter procedure Tasia Bird [facility] [place] Work Phone: [...] 07-11-2024 Hemoglobin glycosyla isabel a1c Kamila Pride [employer] Work Phone: Start: 05-16-2024 ALL BASIC METABOLIC PANEL Kamila Pride [employer] Work Phone: Start: 05-12-2024 BLOOD CULTURE 1 Generic External Data Provider Start: 03-07-2024 End: 03-07-2024 Needle emg ea extremty w/paraspinl area complete Waqas Dugan DO Work Phone: Implantation of join t prosthesis Tasia Bird Plan of Treatment Date Care Activity Detail Author Start: 07-26-2029 Lipid panel Lipid Panel [facility] Start: 07-26-2026 Screening for osteoporosis Bone Density Scan [facility] Start: 09-18-2025 Echocardiography Echocardiogram [facility] Start: 05-16-2025 End: 05-16-2025 Patient encounter procedure 05/16/2025 2:00 PM EST Office Visit [facility] [address] [facility] [address] [place] [address] Amber Hawley MD [address] [facility] [address] [place] [address] [facility] Start: 12-30-2024 Influenza vaccination Influenza Vaccine (#1) [facility] Start: 12-19-2024 End: 12-19-2024 Patient encounter procedure 12/19/2024 3:00 PM EDT Procedure Visit [facility] [address] [facility] [address] [place] [address] Alex Alfredo DPM [address] [facility] [place] [place] [address] [place] [address] [facility] Start: 11-20-2024 End: 11-20-2024 Professional / ancillary services management 11/20/2024 2:00 PM EDT Ancillary Procedure [address] [address] [facility] Start: 2024 End: 2024 Patient encounter procedure 2024 2:15 PM EDT Office Visit [address] [address] Amber Hawley MD [address] [address] [facility] Start: 2024 End: 2026 Holter monitor study Holter Or Event Tissue Rewinder Cardiac Services Routine Palpitations Expected: 2024 (Approximate), Expires: 2026 [facility] Service Area Work Phone: Comment on above: Expected: 2024 (Approximate), Expi res: 2026 Start: 11-04-2024 End: 11-04-2024 Patient encounter procedure 11/04/2024 2:30 PM EDT Office Visit [address] [address] Amber Hawley MD [address] [address] [facility] Start: 10-30-2024 End: 10-30-2024 Patient encounter procedure 10/30/2024 11:30 AM EDT Office Visit [facility] [address] [facility] [address] [place] [address] Kamila Pride, [employer]INKLE CH[employer]ER [address] [facility] [address] [place] [address] [facility] Start: 10-16-2024 End: 10-16-2024 Patient encounter procedure [facility] Comment on above: Arrived Start: 10-10-2024 End: 10-10-2024 Patient encounter procedure 10/10/2024 3:00 PM EDT Procedure Visit [facility] [address] [facility] [address] [place] [id number] Alex Alfredo, DPM [address] [facility] [place] [place] [address] [place] [address] [facility] Start: 09-19-2024 End: 09-19-2024 Professional / ancillary services management 09/19/2024 1:00 PM EDT [facility] [address] [facility] [address] [place] [address] [facility] Start: 09-19-2024 End: 09-19-2024 Patient encounter procedure Sangeetha Jiménez Start: 09-19-2024 Subsequent hospital visit by physician 09/19/2024 11:30 AM EDT Hospital Encounter Sangeetha Jiménez [address] [facility] [address] [place] [phone] [facility] Start: 09-18-2024 End: 09-18-2024 Patient encounter procedure Sangeetha Jiménez Start: 08-01-2024 End: 08-01-2024 Patient encounter procedure [facility] Comment on above: Arrived Start: 07-23-2024 End: 07-23-2024 Professional / ancillary services management 07/23/2024 11:30 AM EDT Ancillary Procedure [facility] [address] [facility] [address] [place] [id number] [facility] Start: 07-15-2024 End: 07-15-2025 Holter monitor study Holter Or Event Tissue Rewinder Cardiac Services Routine Paroxysmal supraventricular tachycardia (CMS-HCC) Abnormal EKG Lightheadedness Chest discomfort Palpitations Expected: 07/15/2024 (Approximate), Expires: 07/15/2025 [facility] Work Phone: Comment on above: Expected: 07/15/2024 (Approximate), Expi res: 07/15/2025 Start: 07-15-2024 End: 07-15-2026 NM Heart Perfusion W stress and W radionuclide IV Nuclear Stress Test Cardiac Nuclear Medicine Routine Lightheadedness Chest discomfort Palpitations Mixed hyperlipidemia Expected: 07/15/2024 (Approximate), Expires: 07/15/2026 [facility] Work Phone: Comment on above: Expected: 07/15/2024 (Approximate), Expi res: 07/15/2026 Start: 07-15-2024 End: 07-15-2026 Heart Transthoracic Transthoracic Echo Complete Echocardiography Routine Paroxysmal supraventricular tachycardia ([facility]-HCC) Abnormal EKG Palpitations Expected: 07/15/2024 (Approximate), Expires: 07/15/2026 [facility] Service Area Work Phone: Comment on above: Expected: 07/15/2024 (Approximate), Expi res: 07/15/2026 Start: 07-11-2024 End: 07-11-2025 DXA Skeletal system Views for bone density DEXA bone density Imaging Routine Osteopenia of both hips Decreased estrogen level Expected: 07/11/2024, Expires: 07/11/2025 [facility] [employer] Work Phone: Comment on above: Expected: 07/11/2024, Expires: Start: 07-11-2024 End: 07-11-2025 Lipid 1996 panel - Serum or Plasma Lipid panel Lab Routine Hyperlipidemia, unspecified hyperlipidemia type (CMS/HCC) Medicare annual wellness visit, subsequent Expected: 07/11/2024 (Approximate), Expires: 07/11/2025 [facility] Healthcare Comment on above: Expected: 07/11/2024 (Approximate), Expi res: 07/11/2025 Start: 07-11-2024 End: 07-11-2025 Microalbumin/Creatinine panel in random Urine Microalbumin / creatinine, urine ratio Lab Routine IGT (impaired glucose tolerance) Expected: 07/11/2024 (Approximate), Expires: 07/11/2025 [facility] Healthcare Comment on above: Expected: 07/11/2024 (Approximate), Expi res: 07/11/2025 Start: 07-11-2024 End: 07-11-2024 Patient encounter procedure 07/11/2024 1:00 PM EDT Office Visit [facility] [address] [place] [phone] Kamila Pride NP [address] [place] [address] [facility] Start: 07-06-2024 Medicare Annual Wellness Visit Medicare Annual Wellness Visit (AWV) [facility] Start: 07-05-2024 Medicare Annual Wellness (AWV) Medicare Annual Wellness (AWV) [facility] Healthcare Start: 07-03-2024 End: 07-03-2025 Comprehensive metabolic 2000 panel - Serum or Plasma Comprehensive metabolic panel Lab Routine Stage 3b chronic kidney disease (HCC) (CMS/HCC) Expected: 07/03/2024 (Approximate), Expires: 07/03/2025 [facility] Healthcare Work Phone: Comment on above: Expected: 07/03/2024 (Approximate), Expi res: 07/03/2025 Start: 07-03-2024 End: 07-03-2025 Magnesium [Mass/volume] in Serum or Plasma Magnesium Lab Routine Stage 3b chronic kidney disease (HCC) (CMS/HCC) Weakness Other fatigue Expected: 07/03/2024 (Approximate), Expires: 07/03/2025 [facility] Healthcare Comment on above: Expected: 07/03/2024 (Approximate), Expi res: 07/03/2025 Start: 07-03-2024 End: 07-03-2025 XR Hip - right 3 Views XR hip right 2 or 3 views Imaging Routine Pain of right hip Fall, initial encounter Expected: 07/03/2024, Expires: 07/03/2025 [facility] Healthcare Comment on above: Expected: 07/03/2024, Expires: Start: 07-03-2024 End: 07-03-2024 Patient encounter procedure 07/03/2024 11:30 AM EST Office Visit [facility] [address] [place] [phone] Kamila Pride NP [address] [place] [address] Arrived [facility] Comment on above: Arrived Start: 06-11-2024 End: 06-11-2025 Natriuretic peptide B [Mass/volume] in Blood B-type natriuretic peptide Lab Routine Acute congestive heart failure, unspecified heart failure type ([facility]/HCC) Expected: 06/11/2024 (Approximate), Expires: 06/11/2025 [facility] Work Phone: Comment on above: Expected: 06/11/2024 (Approximate), Expi res: 06/11/2025 Start: 06-11-2024 End: 06-11-2024 Patient encounter procedure 06/11/2024 11:00 AM EST Office Visit [facility] [address] [place] [phone] Kamila Pride, WRINKLE CHASER [address] [place] [address] Arrived [facility] Comment on above: Arrived Start: 05-23-2024 End: 05-23-2024 Patient encounter procedure 05/23/2024 2:40 PM EST Procedure Visit [facility] [address] [place] [address] Alex Alfredo, DPM [address] [address] [facility] Start: 05-22-2024 End: 05-22-2025 CBC panel - Blood by Automated count CBC Lab Routine Stage 3b chronic kidney disease (HCC) ([facility]/HCC) Expected: 05/22/2024 (Approximate), Expires: 05/22/2025 [facility] [...] [address] [place] [address] Kamila Pride NP [address] [place] [address] Arrived [facility] Comment on above: Arrived Start: 05-16-2024 End: 05-16-2024 Patient encounter procedure 05/16/2024 1:00 PM EST Office Visit [facility] [address] [place] [address] Kamila Pride, WRINKLE CHASER [address] [place] [address] [facility] Start: 05-15-2024 End: 05-15-2025 [...] [address] [place] [address] Kamila Pride, WRINKLE CHASER [address] [place] [address] [facility] Start: 05-14-2024 End: 05-14-2024 Patient encounter procedure 05/14/2024 11:00 AM EST Office Visit [facility] [address] [place] [address] Kamila Pride WRINKLE CHASER [address] [place] [address] [facility] Start: 05-02-2024 End: 05-02-2024 Patient encounter procedure 05/02/2024 2:50 PM EST Procedure Visit [facility] [address] [place] [id number] Alex Alfredo, DPM [address] [facility] [place], [place] [address] [place] [address] [facility] Start: 04-03-2024 [...] [address] [place] [address] Kamila Pride WRINKLE CHASER [address] [place] [address] Arrived [facility] Comment on above: Arrived Start: 03-07-2024 End: 03-07-2024 Patient encounter procedure 03/07/2024 11:00 AM EST Procedure Visit [facility] [address] [place] [address] Waqas Dugan, DO [address] [place] [address] Numbness of hand [facility] [address] [...] Visit [facility] [address] [facility] [address] [place] [id number] Kamila Pride WRINKLE CHASER [address] [facility] [address] [place] [address] [facility] Start: 02-22-2024 End: 02-22-2024 Patient encounter procedure [facility] Comment on above: Pain due to onychomycosis of toenails of both feet (Primary Dx) Start: 01-31-2024 Influenza vaccination Influenza Vaccine (#1) [facility] Comment on above: Postponed from 12/31/2023 (Other Medical Reasons) Start: 12-31-2023 COVID-19 Vaccine () COVID-19 Vaccine () [facility] Start: 09-01-2024 Influenza vaccination Influenza Vaccine (#1) [facility] Start: 07-27-2023 End: 07-27-2023 Patient encounter procedure 07/27/2023 3:30 PM EDT Procedure Visit [facility] [address] [facility] [address] [place] [address] Alex Alfredo, EJM [address] [address] [facility] Start: 06-30-2023 Medicare Annual Wellness (AWV) Medicare Annual Wellness (AWV) [facility] Start: 06-29-2023 End: 06-29-2023 Patient encounter procedure 06/29/2023 2:30 PM EST Office Visit [facility] [address] [facility] [address] [place] [address] Alex Alfredo DPM [address] [address] [facility] Start: 06-15-2023 End: 06-15-2023 Patient encounter procedure 06/15/2023 2:30 PM EST Office Visit [facility] [address] [place] [address] Alex Alfredo, DPM [address] [address] [facility] Start: 10-21-2022 Screening for osteoporosis Bone Density Scan [facility] Start: 10-17-2022 NPV, Provider: Roc Alvarado, Status: Pen, Time: 1:30 PM NPV, Provider: Roc Alvarado, Status: Hang, Time: 1:30 PM [facility] Work Phone: Start: 2021 RSV High Risk: (Elderly (60+) or Population) (1 - 1-dose 75+ series) RSV High Risk: (Elderly (60+) or Population) (1 - 1-dose 75+ series) [facility] Start: 01-29-2021 Creatinine measurement Creatinine Level [facility] Start: 01-29-2021 Diabetes mellitus screening Diabetes Screening [facility] Start: 01-29-2021 Potassium measurement Potassium Level [facility] Start: 01-07-2021 FUV, Provider: Tasia Bird, Status: Pen, Time: 2:15 PM FUV, Provider: Tasia Bird, Status: Pen, Time: 2:15 PM -[facility] Work Phone: Start: 12-03-2020 FUV, Provider: Tasia Bird, Status: Pen, Time: 12:45 PM FUV, Provider: Tasia Bird, Status: Pen, Time: 12:45 PM [facility] [place] Work Phone: Start: 1968 DTaP/Tdap/Td Vaccines (1 - Tdap) DTaP/Tdap/Td Vaccines (1 - Tdap) [facility] Start: 1965 Urine screening for protein CKD: Urine Protein Screening [facility] Start: 1964 Diabetes mellitus screening Diabetes Screening [facility] Start: 1964 Hepatitis C screening Hepatitis C Screening [facility] Start: 1946 Echocardiography Echocardiogram [facility] Start: 1946 Lipid panel Lipid Panel [facility] BLOOD CULTURE 1 BLOOD CULTURE 1 Lab Routine 05/12/2024 8:10 PM EST [facility] End: 09-18-2024 NM Heart Perfusion W stress and W radionuclide IV [facility] Service Area Work Phone: Comment on above: Once for 1 Occurrences starting 09/19/19 until 09/18/2024 Immunizations Immunization Date Immunization Notes Care Provider Hao allred 03-05-2024 Influenza, High-dose Seasonal, Quadrivalent, Preservative Free Kamila Pride NP Work Phone: [facility] 03-05-2024 influenza virus vacc ine, unspecified formulation Amber Hawley MD Work Phone: [facility] Work Phone: 03-01-2023 Influenza, High-dose Seasonal, Quadrivalent, Preservative Free Alex Alfredo DPM Work Phone: [facility] 03-01-2023 influenza virus vacc ine, unspecified formulation Roc Steele MD Work Phone: [facility] 03-31-2022 Moderna Bivalent Pereira ster Vaccination Alex Alfredo DPM Work Phone: [facility] 03-23-2022 Influenza, High-dose Seasonal, Quadrivalent, Preservative Free Alex Alfredo DPM Work Phone: [facility] 01-28-2021 Influenza, Seasonal, Quadrivalent, Adjuvanted Alex Alfredo DPM Work Phone: [facility] 01-30-2020 influenza, injectabl e, quadrivalent, preservative free Alex Alfredo DPM Work Phone: [facility] 09-26-2019 zoster vaccine recombinant Alex Alfredo DPM Work Phone: [facility] 05-16-2019 zoster vaccine recombinant Alex Alfredo DPM Work Phone: [facility] 01-31-2018 influenza, high dose seasonal, preservative-free Alex Alfredo DPM Work Phone: [facility] 01-25-2017 influenza, high dose seasonal, preservative-free Alex Alfredo DPM Work Phone: [facility] 02-02-2016 influenza, injectabl e, quadrivalent, contains preservative Alex Alfredo DPM Work Phone: [facility] 02-07-2015 pneumococcal conjuga te vaccine, 13 valent Alex Alfredo DPM Work Phone: [facility] 01-30-2015 seasonal influenza, intradermal, preservative free Alex Alfredo DPM Work Phone: [facility] 02-07-2014 seasonal influenza, intradermal, preservative free Alex Alfredo DPM Work Phone: [facility] 12-11-2013 pneumococcal polysaccharide vaccine, 23 valent Alex Alfredo DPM Work Phone: [facility] 01-17-2012 zoster vaccine, live Zoya Alfredo DPM Work Phone: [facility] Healthcare Payers Date Payer Category Payer Private Health Insurance [id number] 2022 Unknown 2008 Medicare [id number] 2008 Medicare [id number] 1959 Medicare [id number] 1959 Unknown [id number] 1946 Unknown [id number] 2.16.84 0.1.554387.3.579.2.593 1946 Unknown [id number] 2.16.84 0.1.842929.3.579.2.593 1946 Unknown [id number] 2.16.84 0.1.613819.3.579.2.593 1946 Unknown [id number] 2.16.8 40.1.092309.3.579.2.1068 1946 Unknown [id number] 2.16.8 40.1.434301.3.579.2.1259 1946 Unknown [id number] 2.16.8 40.1.293896.3.579.2.1259 1946 Unknown [id number] 2.16.84 0.1.236632.3.579.2.1259 1946 Unknown [id number] 2.16.84 0.1.028254.3.579.2.1259 1946 Unknown [id number] 2.16.84 0.1.492824.3.579.2.1259 1946 Unknown [id number] 2.16.84 0.1.060499.3.579.2.1258 1946 Unknown [id number] 2.16.84 0.1.079664.3.579.2.1258 1946 Unknown [id number] 2.16.84 0.1.358388.3.579.2.1258 1946 Unknown [id number] 2.16.84 0.1.176222.3.579.2.1258 1946 Unknown [id number] 2.16.84 0.1.584443.3.579.2.1258 1946 Unknown [id number] 2.16.84 0.1.900250.3.579.2.1258 1946 Unknown [id number] 2.16.84 0.1.471423.3.579.2.1258 1946 Unknown [id number] 2.16.84 0.1.639939.3.579.2.1258 1946 Unknown [id number] 2.16.84 0.1.647992.3.579.2.1258 1946 Unknown [id number] 2.16.84 0.1.794769.3.579.2.1258 1946 Unknown [id number] 2.16.84 0.1.514871.3.579.2.1258 1946 Unknown [id number] 2.16.84 0.1.277320.3.579.2.1258 1946 Unknown [id number] 2.16.84 0.1.919602.3.579.2.1258 1946 Unknown [id number] 2.16.84 0.1.165416.3.579.2.1258 1946 Unknown [id number] 2.16.84 0.1.007509.3.579.2.1258 1946 Unknown [id number] 2.16.84 0.1.166122.3.579.2.1259 1946 Unknown [id number] 2.16.84 0.1.833781.3.579.2.1259 1946 Unknown [id number] 2.16. 840.1.220951.3.579.2.196 1946 Unknown [id number] 2.16. 840.1.685215.3.579.2.196 1946 Unknown [id number] 2.16. 840.1.337296.3.579.2.196 1946 Unknown [id number] 2.16. 840.1.829945.3.579.2.1244 1946 Unknown [id number] 2.16. 840.1.176042.3.579.2.1244 1946 Unknown [id number] 2.16. 840.1.826633.3.579.2.1244 1946 Unknown [id number] 2.16.8 40.1.237299.3.579.2.1246 1946 Unknown [id number] 2.16.8 40.1.532054.3.579.2.6 1946 Unknown [id number] 2.16.8 40.1.088395.3.579.2.6 1946 Unknown [id number] 2.16.8 40.1.900186.3.579.2.1246 1946 Unknown [id number] 2.16.8 40.1.511826.3.579.2.1246 1946 Unknown [id number] 2.16.8 40.1.975837.3.579.2.1246 Social History Date Type Detail Facility Start: [...] 09-18-2024 Exposure to SARS-CoV-2 (event) Not sure [facility] Start: 2024 Alcoholic beverage intake Ex-drinker (finding) [facility] Work Phone: NEGATED: Highlighted row - - [facility] [place] Work Phone: Medical Equipment Procedure Code Equipment Code Equipment Original Text Equipment Identifier Dates Screw, Low Profile Hex, 6.5 X 15 Mm Case [id number] Start: 01-29-2020 Comment on above: Description: Convert ed from [facility]. Please see archived information for full log information. Screw, Low Profile Hex, 6.5 X 25 Mm Case [id number] Start: 01-29-2020 Comment on above: Description: Convert ed from [facility]. Please see archived information for full log information. Head, Femur V40 36mm +2.5mm Biolox Delta Case [id number] Start: 01-29-2020 Comment on above: Description: Convert ed from [facility]. Please see archived information for full log information. Stem, Femur 132d Sz 5 Accolade Ii Case [id number] Start: 01-29-2020 Comment on above: Description: Convert ed from [facility]. Please see archived information for full log information. Shell, Trident Ii, Clusterhole, [place] 52e Case [id number] Start: 01-29-2020 Comment on above: Description: Convert ed from [facility]. Please see archived information for full log information. Liners, Poly 36 X 10 D Trid Crossfire E Case [id number] Start: 01-29-2020 Comment on above: Description: Convert ed from [facility]. Please see archived information for full log information. Functional Status Date Assessment Result Facility 10-16-2024 Patient Health Questionnaire 2 item (PHQ-2) [Reported] [facility] 08-19-2024 Patient Health Questionnaire 2 item (PHQ-2) [Reported] [facility] NEGATED: Highlighted row Functional performance Functional status health issues are not documented Disease [facility] [place] Work Phone: Mental Status Date Assessment Result Facility NEGATED: Highlighted row Cognitive function [Interpretation] Cognitive status health issues are not documented Disease [facility] [place] Work Phone: Clinical Notes 06-01-2023 [...] 03/26/2019 T12-L3 [place] TOTAL HIP ARTHROPLASTY Left [place] (01-29-2020 to 01-30-2020) RADIOFREQUENCY ABLATION Left 06/25/2019 [...] (NEURONTIN) 300 mg, 2 times daily HYDROcodone-acetaminophen ([place]) 5-325 mg tablet 1 tablet, Every 4 [...] XL (TOPROL-XL) 50 mg, oral, Every morning jrvmkxpbgumf-Jf-ufvr-minerals tablet 1 tablet, Daily nortriptyline (PAMELOR) 30 [...] (241.3 mg elemental) tablet Holter Or Event Tissue Rewinder 4. Mixed hyperlipidemia simvastatin (Zocor) 10 mg [...] the presence of Dr. Amber Hawley MD, [facility]. I, Dr. Amber Hawley MD, [facility], personally performed the services described in the documentation as scribed by Katty Iverson LPN in my presence, and confirm it is both accurate and complete. documented in this encounter [facility] Work Phone: 2024 Instructions Katty Alvarez [...] instructions on exercise. documented in this encounter [facility] Work Phone: 10-17-2024 Telephone encounter Note Luma was seen yesterday called stating that her medication was not sent in yet. Please send meds to [facility] in [place] [facility] 10-17-2024 Miscellaneous Notes Luma was seen yesterday called stating that her medication was not sent in yet. Please send meds to [facility] in [place] documented in this encounter [facility] 10-16-2024 History of Present illness Narrative Images [...] 03/26/2019 T12-L3 [place] TOTAL H[place] ARTHROPLASTY Left [place] (01-29-2020 to 01-30-2020) RADIOFREQUENCY ABLATION Left 06/25/2019 [...] follow-ups on file. documented in this encounter [facility] 10-10-2024 History of Present illness Narrative Patient: [...] min Stress: No Stress Concern Present (11/25/2022) [place] [employer] [employer] - Occupational Stress Questionnaire Feeling of Stress : Only a little Social Connections: Moderately Isolated (11/25/2022) Social Connection and Isolation Panel [NHANES] Frequency of Communication with Friends and Family: More than three times a week Frequency of Social Gatherings with Friends and Family: Once a week Attends Rastafarian Services: Never Active Member of Clubs or [...] Alex Alfredo DPM documented in this encounter [facility] 08-19-2024 History of Present illness Narrative Images from the original note were not included. HPI prolia injection Additional comments: Here for injection billed and shipped from [employer] Last edited by Katie Ritter LPN on 08/19/2024 11:24 AM. Subjective Patient ID: Luma Ribeiro is a 78 y.o. female who presents for prolia injection (Here for injection billed and shipped from [employer]) and Osteoporosis. Patient complains of osteoporosis. She [...] MOUTH TWICE DAILY 200 capsule 3 HYDROcodone-acetaminophen ([place]) 5-325 MG tablet Take 1 tablet by [...] 03/26/2019 T12-L3 [place] TOTAL HIP ARTHROPLASTY Left [place] (01-29-2020 to 01-30-2020) RADIOFREQUENCY ABLATION Left 06/25/2019 [...] months (around 10/19/2024). documented in this encounter [facility] 08-01-2024 History of Present [...] min Stress: No Stress Concern Present (11/25/2022) [place] [employer] - Occupational Stress Questionnaire Feeling of Stress : Only a little Social Connections: Moderately Isolated (11/25/2022) Social Connection and Isolation Panel [NHANES] Frequency of Communication with Friends and Family: More than three times a week Frequency of Social Gatherings with Friends and Family: Once a week Attends Rastafarian Services: Never Active Member of Clubs or [...] Alex Alfredo DPM documented in this encounter [facility] 08-01-2024 History of Present [...] 03/26/2019 T12-L3 [place] TOTAL HIP ARTHROPLASTY Left [place] (01-29-2020 to 01-30-2020) RADIOFREQUENCY ABLATION Left 06/25/2019 [...] lozenges. Lumbosacral spondylosis without myelopathy - HYDROcodone-acetaminophen ([place]) 5-325 MG tablet; Take 1 tablet by [...] directed. Age-related osteoporosis without current pathological fracture ([facility]) - denosumab (Prolia) 60 MG/ML solution prefilled syringe; Inject 1 mL (60 mg) under the skin 1 (one) time for 1 dose Avoid falls as you can fracture. Take calcium with vitamin D. If you get this medication from your insurance, call the office and we can give you the medication No follow-ups on file. documented in this encounter [facility] 07-15-2024 Note Normal sinus rhythm 93 bpm voltage criteria for left ventricular hypertrophy abnormal R wave progression, 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 Compared to EKG from December 2019, left axis deviation loss of lateral R waves were noted in December 2019. [facility] 07-15-2024 History of Present illness Narrative Images [...] wheeled walkers. Subjective : Was hospitalized at [facility] in May 2024. She was told she [...] Medical History: Cardiomegaly Diverticulosis 2012 Edema Glaucoma ([facility]) Heart disease, unspecified History of lumbar [...] 03/26/2019 T12-L3 [place] TOTAL HIP ARTHROPLASTY Left [place] (01-29-2020 to 01-30-2020) RADIOFREQUENCY ABLATION Left 06/25/2019 [...] ALPRAZolam (XANAX) 0.25 mg, Nightly PRN HYDROcodone-acetaminophen ([place]) 5-325 mg tablet 1 tablet, Every 4 [...] occurred after the last office visit with mo May 2024 BUN 15 creatinine 1.04 GFR 55 sodium 137 potassium 4.7 liver enzymes normal GFR was 52 in June 2023 Assessment: 1. Encounter to establish care with new doctor ECG 12 Lead 2. Paroxysmal supraventricular tachycardia (CMS-HCC) Follow Up In Cardiology magnesium oxide (Mag-Ox) 400 mg (241.3 mg magnesium) tablet Transthoracic Echo Complete Holter Or Event Tissue Rewinder 3. Abnormal EKG Transthoracic Echo Complete Holter Or Event Tissue Rewinder 4. Lightheadedness Nuclear Stress Test Holter Or Event Tissue Rewinder 5. Chest discomfort Nuclear Stress Test Holter Or Event Tissue Rewinder 6. Palpitations Transthoracic Echo Complete Nuclear Stress Test Holter Or Event Tissue Rewinder 7. Primary hypertension 8. Stenosis of carotid [...] accurate and complete. documented in this encounter [facility] Work Phone: 07-15-2024 Instructions Katty Alvarez [...] instructions on exercise. documented in this encounter [facility] Work Phone: 07-11-2024 History of Present [...] Do you have a medical power of music industry intern?: Yes Who is your medical power of music industry intern?: Objective : BP 130/80 Pulse 87 Ht [...] 16. Morbid obesity due to excess calories ([facility]) Discussed goal of BMI < 30. Advised [...] this time. 22. Hyperlipidemia, unspecified hyperlipidemia type ([facility]) This is a chronic medical condition that [...] July 11, 2024 documented in this encounter [facility] 07-03-2024 History of Present [...] 03/26/2019 T12-L3 [place] TOTAL HIP ARTHROPLASTY Left [place] (01-29-2020 to 01-30-2020) RADIOFREQUENCY ABLATION Left 06/25/2019 [...] orders for this visit: Paroxysmal supraventricular tachycardia ([facility]/HCC) - Ambulatory referral to Cardiology; Future Awaiting cardiology appointment. She did not follow up with cardiology as she was supposed to when she got out of the hospital. New referral sent as she wants to go to the maintenance shop technician that her goes to. Primary insomnia - [...] congestive heart failure, unspecified heart failure type ([facility]/HCC) - Ambulatory referral to Cardiology; Future Awaiting cardiology appointment. She did not follow up with cardiology as she was supposed to when she got out of the hospital. New referral sent as she wants to go to the maintenance shop technician that her goes to. Stage 3b chronic [...] follow-ups on file. documented in this encounter [facility] 06-11-2024 History of Present [...] for 3 days and she called the functional consultant nurse and they advised her to go [...] 03/26/2019 T12-L3 [place] TOTAL HIP ARTHROPLASTY Left [place] (01-29-2020 to 01-30-2020) RADIOFREQUENCY ABLATION Left 06/25/2019 [...] to follow up with Dr. Chavez in [facility]. Await his recommendations. She continue on [...] follow-ups on file. documented in this encounter [facility] 05-23-2024 History of Present [...] min Stress: No Stress Concern Present (11/25/2022) [place] [employer] - Occupational Stress Questionnaire Feeling of Stress : Only a little Social Connections: Moderately Isolated (11/25/2022) Social Connection and Isolation Panel [NHANES] Frequency of Communication with Friends and Family: More than three times a week Frequency of Social Gatherings with Friends and Family: Once a week Attends Rastafarian Services: Never Active Member of Clubs or [...] Alex Alfredo DPM documented in this encounter [facility] 05-22-2024 History of Present [...] 03/26/2019 T12-L3 [place] TOTAL HIP ARTHROPLASTY Left [place] (01-29-2020 to 01-30-2020) RADIOFREQUENCY ABLATION Left 06/25/2019 [...] follow-ups on file. documented in this encounter [facility] 05-15-2024 History of Present illness Narrative Images from the original note were not included. Subjective Patient ID: Luma Ribeiro is a 78 y.o. female who presents for A F/U FOR PNEUMONIA, CHF Luma presents today for F/U for pneumonia and CHF. Was admitted to [facility] on 05-12-24.She is feeling weak and SOB still. Home health has not started. Pt would benefit from Nursing, PT/OT, and aide. PT was diagnosed with generalized weakness, CHF, And pneumonia. She continues on Doxycycline. The hospital discharge pt with an order for Lasix prn. Pt educated on when to take a prn lasix. She verbalized understanding. The hospital set up [facility] but we will set pt up with [facility] as they [facility] [...] 03/26/2019 T12-L3 [place] TOTAL HIP ARTHROPLASTY Left [place] (01-29-2020 to 01-30-2020) RADIOFREQUENCY ABLATION Left 06/25/2019 [...] follow-ups on file. documented in this encounter [facility] 05-07-2024 History of Present [...] TWICE DAILY 200 capsule 3 [] HYDROcodone-acetaminophen ([place]) 5-325 MG tablet Take 1 tablet by [...] 03/26/2019 T12-L3 [place] TOTAL HIP ARTHROPLASTY Left [place] (01-29-2020 to 01-30-2020) RADIOFREQUENCY ABLATION Left 06/25/2019 [...] Morbid (severe) obesity due to excess calories ([facility]/HCC) Body mass index (BMI) 45.0-49.9, adult ([facility]) Discussed goal of BMI < 30. Advised [...] follow-ups on file. documented in this encounter [facility] 04-16-2024 Telephone encounter Note OARRS reviewed, Rx sent into patient's pharmacy. [facility] 04-16-2024 Miscellaneous Notes OARRS reviewed, Rx sent into patient's pharmacy. documented in this encounter [facility] 04-03-2024 History of Present [...] breathing, coughing, lifting and movement. Treatments tried: [place], cough syrup, muscle relaxer. The treatment provided [...] TWICE DAILY 200 capsule 3 [] HYDROcodone-acetaminophen ([place]) 5-325 MG tablet Take 1 tablet by [...] 03/26/2019 T12-L3 [place] TOTAL HIP ARTHROPLASTY Left [place] (01-29-2020 to 01-30-2020) RADIOFREQUENCY ABLATION Left 06/25/2019 [...] breathing. Lumbosacral spondylosis without myelopathy - HYDROcodone-acetaminophen ([place]) 5-325 MG tablet; Take 1 tablet by [...] follow-ups on file. documented in this encounter [facility] 03-07-2024 Note Carpal tunnel syndro me, left, severe. Progressed substantially when compared to EDX evaluation in 2021. C8 radiculopathy, left, moderate. Progressed when compared to EDX evaluation in 2021 [facility] 03-07-2024 Note Carpal tunnel syndro me, left, severe. Progressed substantially when compared to EDX evaluation in 2021. C8 radiculopathy, left, moderate. Progressed when compared to EDX evaluation in 2021 [facility] 03-07-2024 History of Present illness Narrative Images from the original note were not included. Reason for Appointment: EMG Patient: Luma Ribeiro : 1945 EMG Computer: MYOS Referring Physician: Kamila Pride CNP EMG: PABLO political worker: Jimmy Gibson RT(R) Office Location: [place] Reason for EMG: c/o numbness/tingling in left hand/forearm especially in 2nd & 3rd digits, weakness in left hand. No hx of DM. Not on blood thinners. Comments: Procedure was explained to the patient who expressed understanding. Patient appeared to have tolerated the test well despite some discomfort due to the nature of the test. 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 documented in this encounter [facility] 02-29-2024 Telephone encounter Note OARRS reviewed, Rx sent into patient's pharmacy. [facility] 02-29-2024 Miscellaneous Notes OARRS reviewed, Rx sent into patient's pharmacy. Hydrocodone 325 DDM IN [place] She had an appt today for a med follow up with kamila but had to change it due to her not being in. She said she has about 6 pills left. She did reschedule her med follow up for next Monday. documented in this encounter [facility] 02-29-2024 Telephone encounter Note Hydrocodone 325 DDM IN [place] She had an appt today for a med follow up with kamila but had to change it due to her not being in. She said she has about 6 pills left. She did reschedule her med follow up for next Monday. [facility] 01-29-2024 Telephone encounter Note Amlodipine sent [facility] 01-29-2024 Miscellaneous Notes Amlodipine sent documented in this encounter [facility] 06-15-2023 History of Present [...] Diagnosis Date Cardiomegaly Diverticulosis 2013 Edema Glaucoma ([facility]) Heart disease, unspecified History of lumbar surgery multiple times HTN (hypertension) ([facility]) Hyperlipidemia ([facility]) Insomnia Lumbago Lumbosacral spondylosis without myelopathy [...] min Stress: No Stress Concern Present (11/25/2022) [place] [employer] [employer] - Occupational Stress Questionnaire Feeling of Stress : Only a little Social Connections: Moderately Isolated (11/25/2022) Social Connection and Isolation Panel [NHANES] Frequency of Communication with Friends and Family: More than three times a week Frequency of Social Gatherings with Friends and Family: Once a week Attends Rastafarian Services: Never Active Member of Clubs or [...] Patient may continue with conservative treatments including [id number] anti-inflammatories and other treatments suggested today. Patient may want to be scheduled for surgical intervention in the near future. Patient have the right hallux subungual exostectomy with the lateral left hallux partial permanent nail avulsion in the near future Alex Alfredo DPM documented in this encounter [facility] 06-01-2023 History of Present [...] Diagnosis Date Cardiomegaly Diverticulosis 2013 Edema Glaucoma ([facility]) Heart disease, unspecified History of lumbar surgery multiple times HTN (hypertension) ([facility]) Hyperlipidemia ([facility]) Insomnia Lumbago Lumbosacral spondylosis without myelopathy [...] min Stress: No Stress Concern Present (11/25/2022) [place] [employer] - Occupational Stress Questionnaire Feeling of Stress : Only a little Social Connections: Moderately Isolated (11/25/2022) Social Connection and Isolation Panel [NHANES] Frequency of Communication with Friends and Family: More than three times a week Frequency of Social Gatherings with Friends and Family: Once a week Attends Rastafarian Services: Never Active Member of Clubs or [...] Patient may continue with conservative treatments including gvgn-srh-[id number] anti-inflammatories and other treatments suggested today. Patient [...] Alex Alfredo DPM documented in this encounter [facility] Healthcare Evaluation note Diagnosis Subungual exostosis [...] Fall, initial encounter documented in this encounter [facility] HealthcareEvaluation note* Diagnosis Insomnia, unspecified [...] failure type (CMS/HCC) documented in this encounter [facility] HealthcareEvaluation note* Diagnosis Encounter to establish care with new doctor Paroxysmal supraventricular tachycardia ([facility]) Paroxysmal supraventricular tachycardia Abnormal EKG Nonspecific [...] Never smoked cigarettes documented in this encounter [facility] Work Phone: Evaluation note* Diagnosis Pain due to onychomycosis of toenails of both feet- Primary documented in this encounter [facility] HealthcareEvaluation note* Diagnosis SOB (shortness of breath)- Primary Shortness of breath Chronic cough Cough Lumbosacral spondylosis without myelopathy Seasonal allergic rhinitis, unspecified trigger Age-related osteoporosis without current pathological fracture (CMS/HCC) documented in this encounter [facility] HealthcareEvaluation note* Diagnosis Age-related osteoporosis without current pathological fracture (CMS/HCC)- Primary Osteopenia of both hips Chronic cough Cough documented in this encounter [facility] HealthcareEvaluation note* Diagnosis Lightheadedness Dizziness and giddiness Chest discomfort Other chest pain Palpitations Mixed hyperlipidemia documented in this encounter [facility] Work Phone: Evaluation note* Diagnosis Paroxysmal supraventricular tachycardia Abnormal EKG Nonspecific abnormal electrocardiogram (ECG) (EKG) Palpitations documented in this encounter [facility] Work Phone: Evaluation note* Diagnosis Pain due to onychomycosis of toenails of both feet- Primary documented in this encounter [facility] HealthcareEvaluation note* Diagnosis Acute low back pain without sciatica, unspecified back pain laterality- Primary documented in this encounter [facility] HealthcareEvaluation note* Diagnosis Lumbosacral spondylosis without myelopathy documented in this encounter [facility] HealthcareEvaluation note* Diagnosis Encounter to discuss test results- Primary Other specified counseling Uses roller walker Palpitations Mixed hyperlipidemia Chest discomfort Other chest pain CARO on CPAP Paroxysmal supraventricular tachycardia Never smoked cigarettes Body mass index (BMI) 40.0-44.9, adult (Multi) documented in this encounter [facility] Work Phone: History of Present illness NarrativeLuma is a 75-year-old female patient of Dr. Bird who is here for ultrasound-guided right intraarticular shoulder injection. She has a history of pain and discomfort. 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 Distal pulses and sensation are intact. Limited forward flexion to about 25 degrees lateral abduction to about 15 unable to perform any external rotation but internal he can get to the small of her back. Herexam does not allow for much of a true Neer's Shelby or Goldston's test. * Diagnostics: See dictated report from today, previous outside CT scan report of the humerus reviewed, and is available in the [facility] chart. * Procedure: None * Assessment: [...] the patient's CT scan report reviewed in [facility] Other than the anterior medial dislocation and [...] grammatical areas may persist related to the [employer] software * Taniya Al MD * Office: * . -[facility] Work Phone: History of Present illness [...] Diagnosis Date Cardiomegaly Diverticulosis 2013 Edema Glaucoma ([facility]) Heart disease, unspecified History of lumbar surgery multiple times HTN (hypertension) ([facility]) Hyperlipidemia ([facility]) Insomnia Lumbago Lumbosacral spondylosis without myelopathy Myalgia, unspecified site Myositis Occlusion and stenosis of unspecified carotid artery without mention of cerebral infarction CARO (obstructive sleep apnea) Osteoarthrosis unspecified wheteher generalized or localized. unspecified site Osteopenia Paroxysmal supraventricular tachycardia ([facility]) Medications: Current Outpatient Medications: ALPRAZolam (Xanax) [...] min Stress: No Stress Concern Present (11/25/2022) [place] [employer] - Occupational Stress Questionnaire Feeling of Stress : Only a little Social Connections: Moderately Isolated (11/25/2022) Social Connection and Isolation Panel [NHANES] Frequency of Communication with Friends and Family: More than three times a week Frequency of Social Gatherings with Friends and Family: Once a week Attends Rastafarian Services: Never Active Member of Clubs or [...] 9 Alex Alfredo DPM [facility] N[facility]* Other Medical (Routine) - Closed Specialty Diagnoses / Procedures Referred By Aminah beltran Referred To Contact Neurology Diagnoses Numbness of hand Procedures [place] OFFICE/OUTPATIENT NEW HIGH MDM 60 MINUTES Kamila Pride NP [address] [facility] [address] [place] [address] Phone: tel: fax: Waqas Dugan DO [address] [place] [address] Phone: tel: fax: Referral ID Status Reason Start Date Expiration Date V isits Requested Visits Authorized [id number] Closed Perform Procedure 03/05/2024 09/01/2024 1 1 [facility] Cardiac Stress Testing (Routine) - Authorized Specialty Diagnoses / Procedures Referred By Contac t Referred To Contact Radiology Diagnoses Lightheadedness Chest discomfort Palpitations Mixed hyperlipidemia Procedures Nuclear Stress Test CHG MYOCARDIAL SPECT MULTIPLE STUDIES Amber Hawley MD [address] [facility] [address] [place] [address] Phone: tel: fax: Referral ID Status Reason Start Date Expiration Date V isits Requested Visits Authorized [id number] Authorized 07/15/2024 07/15/2025 5 5 [facility] Work Phone: Reason for visit Narrative* Cardiac Stress Testing (Routine) - Authorized Specialty Diagnoses / Procedures Referred By Contac t Referred To Contact Radiology Diagnoses Lightheadedness Chest discomfort Palpitations Mixed hyperlipidemia Procedures Nuclear Stress Test CHG MYOCARDIAL SPECT MULTIPLE STUDIES Amber Hawley MD [address] [address] Phone: tel: fax: Referral ID Status Reason Start Date Expiration Date V isits Requested Visits Authorized [id number] Authorized 07/15/2024 07/15/2025 5 5 [facility] Work Phone: Reason for visit Narrative* CV Imaging (Routine) - Authorized Specialty Diagnoses / Procedures Referred By Contac t Referred To Contact Cardiology Diagnoses Paroxysmal supraventricular tachycardia Abnormal EKG Palpitations Procedures Transthoracic Echo Complete [place] ECHO TTHRC R-T 2D W/WOM-MODE COMPL SPEC&COLR D Amber Hawley MD [address] [address] Phone: tel: fax: Referral ID Status Reason Start Date Expiration Date Visits Requested Visits Authorized [id number] Authorized Perform Procedure 07/15/2024 07/15/2025 1 1 [facility] Work Phone: Chief Complaint * New problem * Right shoulder pain MP Refer : RT shoulder ultra sound guided injection* Right shoulder pain, here for injection. 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 DATE CREATED AUTHOR AUTHOR'S ORGANIZ ATION 11/22/2024 [facility] DATE CREATED AUTHOR AUTHOR'S ORGANIZ ATION 11/23/2024 [facility] Reason for Visit (unrecogniz ed section and [...] 12 Lead Amber Hawley MD [address] [facility] [address] [place] [address] Phone: tel: fax: Referral ID Status Reason Start Date Expiration Date V isits Requested Visits Authorized [id number] Authorized 07/15/2024 07/15/2025 1 1 Reason Comments [...] Up In Cardiology Amber Hawley MD [address] [facility] [address] [place] [address] Phone: tel: fax: Amber Hawley MD [address] [facility] [address] [place] [address] Phone: tel: fax: Referral ID Status Reason Start Date Expiration Date V isits Requested Visits Authorized [id number] Authorized 07/15/2024 07/15/2025 1 1 Care Teams (unrecognized sec tion and content) Crts Relationship Specialty Start Date End Date Roc Steele MD [address] [place] [address] PCP - ACO Reach 09/22/22 Roc Steele MD [address] [place] [address] PCP - General Internal Medicine 09/28/22 Crts Relationship Specialty Start Date End Date Roc Steele MD [address] [place] [address] PCP - ACO Reach 09/22/22 Roc Steele MD [address] [place] [address] PCP - General Internal Medicine 09/28/22 Crts Relationship Specialty Start Date End Date Roc Steele MD [address] [place] [address] PCP - ACO Reach 09/22/22 Roc Steele MD [address] [place] [address] PCP - General Internal Medicine 09/28/22 Crts Relationship Specialty Start Date End Date Roc Steele MD [address] [place] [address] PCP - General Internal Medicine 09/28/22 Roc Steele MD [address] [place] [address] PCP - ACO Reach 08/30/23 Crts Relationship Specialty Start Date End Date Roc Steele MD [address] [place] [address] PCP - General Internal Medicine 09/28/22 Roc Steele MD [address] [place] [address] PCP - ACO Reach 08/30/23 Crts Relationship Specialty Start Date End Date Roc Steele MD [address] [place] [address] PCP - General Internal Medicine 09/28/22 Roc Steele MD [address] [place] [address] PCP - ACO Reach 08/30/23 Crts Relationship Specialty Start Date End Date Roc Steele MD [address] [place] [address] PCP - General Internal Medicine 09/28/22 Roc Steele MD [address] [place] [address] PCP - ACO Reach 08/30/23 Crts Relationship Specialty Start Date End Date Roc Steele MD [address] [place] [address] PCP - General Internal Medicine 09/28/22 Roc Steele MD [address] [place] [address] PCP - ACO Reach 08/30/23 Crts Relationship Specialty Start Date End Date Roc Steele MD [address] [place] [address] PCP - General Internal Medicine 09/28/22 Roc Steele MD [address] [place] [address] PCP - ACO Reach 08/30/23 Crts Relationship Specialty Start Date End Date Roc Steele MD [address] [place] [address] PCP - General Internal Medicine 09/28/22 Roc Steele MD [address] [place] [address] PCP - ACO Reach 08/30/23 Waqas Dugan DO [address] [place] [address] Referring Physician Neurology 03/07/24 Crts Relationship Specialty Start Date End Date Roc Steele MD [address] [place] [address] PCP - General Internal Medicine 09/28/22 Roc Steele MD [address] [place] [address] PCP - ACO Reach 08/30/23 Waqas Dugan DO [address] [place] [address] Referring Physician Neurology 03/07/24 Crts Relationship Specialty Start Date End Date Roc Steele MD [address] [place] [address] PCP - General Internal Medicine 09/28/22 Roc Steele MD [address] [place] [address] PCP - ACO Reach 08/30/23 Waqas Dugan DO [address] [place] [address] Referring Physician Neurology 03/07/24 Crts Relationship Specialty Start Date End Date Roc Steele MD [address] [place] [address] PCP - General Internal Medicine 09/28/22 Roc Steele MD [address] [place] [address] PCP - ACO Reach 08/30/23 Waqas Dugan DO [address] [place] [address], [place] [address] Referring Physician Neurology 03/07/24 Crts Relationship Specialty Start Date End Date Roc Steele MD [address] [place] [address] PCP - General Internal Medicine 09/28/22 Roc Steele MD [address] [place] [address] PCP - ACO Reach 08/30/23 Waqas Dugan DO [address] [place] [address] Referring Physician Neurology 03/07/24 Crts Relationship Specialty Start Date End Date Roc Steele MD [address] [place] [address] PCP - General Internal Medicine 09/28/22 Roc Steele MD [address] [place] [address] PCP - ACO Reach 08/30/23 Crts Relationship Specialty Start Date End Date Roc Steele MD [address] [place] [address] PCP - General Internal Medicine 09/28/22 Roc Steele MD [address] [place] [address] PCP - ACO Reach 08/30/23 Waqas Dugan DO [address] [place] [address] Referring Physician Neurology 03/07/24 Crts Relationship Specialty Start Date End Date Roc Steele MD [address] [place] [address] PCP - General Internal Medicine 09/28/22 Roc Steele MD [address] [place] [address] PCP - ACO Reach 08/30/23 Waqas Dugan DO [address] [place] [address] Referring Physician Neurology 03/07/24 Crts Relationship Specialty Start Date End Date Roc Steele MD [address] [place] [address] PCP - General Internal Medicine 09/28/22 Roc Steele MD [address] [place] [address] PCP - ACO Reach 08/30/23 Waqas uDgan DO [address] [place] [address] Referring Physician Neurology 03/07/24 Crts Relationship Specialty Start Date End Date Roc Steele MD [address] [place] [address] PCP - General Internal Medicine 09/28/22 Roc Steele MD [address] [place] [address] PCP - ACO Reach 08/30/23 Waqas Dugan DO [address] [place] [address], [place] [address] Referring Physician Neurology 03/07/24 Crts Relationship Specialty Start Date End Date Roc Steele MD [address] [place] [address] PCP - General Internal Medicine 09/28/22 Roc Steele MD [address] [place] [address] PCP - ACO Reach 08/30/23 Waqas Dugan DO [address] [place] [address] Referring Physician Neurology 03/07/24 Crts Relationship Specialty Start Date End Date Roc Steele MD [address] [place] [address] PCP - General Internal Medicine 09/28/22 Roc Steele MD [address] [place] [address] PCP - ACO Reach 08/30/23 Waqas Dugan DO [address] [place] [address] Referring Physician Neurology 03/07/24 Crts Relationship Specialty Start Date End Date Roc Steele MD [address] [place] [address] PCP - General Internal Medicine 09/28/22 Roc Steele MD [address] [place] [address] PCP - ACO Reach 08/30/23 Waqas Dugan DO [address] [place] [address], [place] [address] Referring Physician Neurology 03/07/24 Crts Relationship Specialty Start Date End Date Roc Steele MD [address] [place] [address] PCP - General Internal Medicine 09/28/22 Roc Steele MD [address] [place] [address] PCP - ACO Reach 08/30/23 Waqas Dugan DO [address] [place] [address] Referring Physician Neurology 03/07/24 Raya Holt, RN [facility] 06/07/24 Crts Relationship Specialty Start Date End Date Roc Steele MD [address] [place] [address] PCP - General Internal Medicine 09/28/22 Roc Steele MD [address] [place] [address] PCP - ACO Reach 08/30/23 Waqas Dugan DO [address] [place] [address] Referring Physician Neurology 03/07/24 Raya Holt, RN [facility] 06/07/24 Crts Relationship Specialty Start Date End Date Roc Steele MD [address] [place] [address] PCP - General Internal Medicine 09/28/22 Roc Steele MD [address] [place] [address] PCP - ACO Reach 08/30/23 Waqas Dugan DO [address] [place] [address] Referring Physician Neurology 03/07/24 Raya Holt, RN [facility] 06/07/24 Crts Relationship Specialty Start Date End Date Roc Steele MD [address] [place] [address] PCP - General Internal Medicine 09/28/22 Roc Steele MD [address] [place] [address] PCP - ACO Reach 08/30/23 Waqas Dugan DO [address] [place] [address] Referring Physician Neurology 03/07/24 Raya Holt RN [facility] 06/07/24 Crts Relationship Specialty Start Date End Date Roc Steele MD [address] [place] [address] PCP - General Internal Medicine 09/28/22 Roc Steele MD [address] [place] [address] PCP - ACO Reach 08/30/23 Waqas Dugan DO [address] [place] [address], [place] [address] Referring Physician Neurology 03/07/24 Raya Holt, CARMEN [facility] 06/07/24 Crts Relationship Specialty Start Date End Date Roc Steele MD [address] [place] [address] PCP - General 10/04/22 Crts Relationship Specialty Start Date End Date Roc Steele MD [address] [place] [address] PCP - General Internal Medicine 09/28/22 Roc Steele MD [address] [place] [address] PCP - ACO Reach 08/30/23 Waqas Dugan DO [address] [place] [address], [place] [address] Referring Physician Neurology 03/07/24 Gladis Laird LPN 07/19/24 Crts Relationship Specialty Start Date End Date Roc Steele MD [address] [place] [address] PCP - General Internal Medicine 09/28/22 Roc Steele MD [address] [place] [address] PCP - ACO Reach 08/30/23 Waqas Dugan DO [address] [place] [address] Referring Physician Neurology 03/07/24 Gladis Laird LPN 07/19/24 Crts Relationship Specialty Start Date End Date Roc Steele MD [address] [place] [address] PCP - General Internal Medicine 09/28/22 Roc Steele MD [address] [place] [address] PCP - ACO Reach 08/30/23 Waqas Dugan DO [address] [place] [address] Referring Physician Neurology 03/07/24 Gladis Laird LPN 07/19/24 Crts Relationship Specialty Start Date End Date Roc Steele MD [address] [place] [address] PCP - General Internal Medicine 09/28/22 Roc Steele MD [address] [place] [address] PCP - ACO Reach 08/30/23 Waqas Dugan DO [address] [place] [address] Referring Physician Neurology 03/07/24 Gladis Laird LPN 07/19/24 Crts Relationship Specialty Start Date End Date Roc Steele MD [address] [place] [address] PCP - General Internal Medicine 09/28/22 Roc Steele MD [address] [place] [address] PCP - ACO Reach 08/30/23 Waqas Dugan DO [address] [place] [address] Referring Physician Neurology 03/07/24 Gladis Laird LPN 07/19/24 Crts Relationship Specialty Start Date End Date Roc Steele MD [address] [place] [address] PCP - General 10/04/22 Crts Relationship Specialty Start Date End Date Roc Steele MD [address] [place] [address] PCP - General 10/04/22 Crts Relationship Specialty Start Date End Date Roc Steele MD [address] [place] [address] PCP - General 10/04/22 Crts Relationship Specialty Start Date End Date Roc Steele MD [address] [place] [address] PCP - General Internal Medicine 09/28/22 Roc Steele MD [address] [place] [address] PCP - ACO Reach 08/30/23 Waqas Dugan DO [address] [place] [address] Referring Physician Neurology 03/07/24 Gladis Laird LPN 07/19/24 Crts Relationship Specialty Start Date End Date Roc Steele MD [address] [place] [address] PCP - General Internal Medicine 09/28/22 Roc Steele MD [address] [place] [address] PCP - ACO Reach 08/30/23 Waqas Dugan DO [address] [place] [address] Referring Physician Neurology 03/07/24 Gladis Laird LPN 07/19/24 Crts Relationship Specialty Start Date End Date Roc Steele MD [address] [place] [address] PCP - General Internal Medicine 09/28/22 Roc Steele MD [address] [place] [address] PCP - ACO Reach 08/30/23 Waqas Dugan DO [address] [place] [address], [place] [address] Referring Physician Neurology 03/07/24 Gladis Laird LPN [address] [place] [address] 07/19/24 Crts Relationship Specialty Start Date End Date Roc Steele MD [address] [place] [address] PCP - General Internal Medicine 09/28/22 Roc Steele MD [address] [place] [address] PCP - ACO Reach 08/30/23 Waqas Dugan DO [address] [place] [address] Referring Physician Neurology 03/07/24 Gladis Laird LPN [address] [place] [address] 07/19/24 Crts Relationship Specialty Start Date End Date Roc Steele MD [address] [place] [address] PCP - General Internal Medicine 09/28/22 Roc Steele MD [address] [place] [address] PCP - ACO Reach 08/30/23 Waqas Dugan DO [address] [place] [address] Referring Physician Neurology 03/07/24 Gladis Laird LPN [address] [place] [address] 07/19/24 Crts Relationship Specialty Start Date End Date Roc Steele MD [address] [place], [place] [id number] PCP - General 10/04/22 FOR RECORDS PERTAINING [...] [facility] [employer] [facility]. provides no warranty or guarantee of the accuracy or completeness of information in this document.
--- NOTE | 2024-12-27 13:00 | PM.ORONB ---
Brief Operative Note Date of procedure: 12/27/24 Pre-op diagnosis general: Left bimalleolar ankle fracture with possible syndesmotic instability Post-op diagnosis: other (Left bimalleolar ankle fracture with syndesmotic instability) Procedure: Procedure performed: Open reduction and internal fixation left lateral malleolus fracture, closed reduction of medial malleolus fracture and open syndesmotic stabilization, left ankle Indications for procedure: Patient is a 79-year-old female who I treated in the past for right ankle fracture in years past who presented to the emergency department yesterday after sustaining a ground-level fall and injury to her left ankle. She was reduced and splinted in the field and once in the emergency department x-rays demonstrated bimalleolar ankle fracture which was displaced. She has multiple medical comorbidities including congestive heart failure and did receive cardiac clearance preoperatively. I spoke to the patient regarding the potential risks and benefits of the procedure and given that she has an unstable fracture I recommended open reduction and internal fixation which the patient provided consent to. Specifically I reviewed the potential complications including wound, infection, pain, bleeding, numbness/tingling, nonunion, delayed union, malunion, posttraumatic arthritis, chronic pain and need for additional surgery. She is aware that she will likely require custodial facility after surgery given she will be nonweightbearing. In addition she was diagnosed with osteoporosis but has had 1 Prolia infusion which she believes was 3 to 4 months ago. Intraoperative findings: Serous filled fracture blister noted on the anterior distal tibia and over the medial ankle. Swelling and bruising noted medially with no visible skin wrinkles. Intact skin wrinkles noted laterally. Hematoma noted in the subcutaneous tissues and was evacuated. Lateral malleolus fracture which was oblique and at the level of the ankle joint consistent with Guerrero B. Small transverse medial malleolus fracture and small posterior malleolus fracture noted during intraoperative fluoroscopy. Due to swelling and poor skin quality decision was made to treat medial malleolus fracture with closed reduction. There was rupture of the anterior inferior tibiofibular ligament and bone quality was consistent with osteoporosis therefore decision was made to perform syndesmotic stabilization with multiple tetra cortical screws. Procedure in detail: Patient was identified preoperative holding by myself which time correct side and site were marked and consent was obtained. Regional anesthesia was performed by the anesthesia team and patient was brought back to the operating theater placed on table in supine position. Preoperative antibiotics were started. General anesthesia was administered and the left lower extremity was prepped and draped in usual sterile fashion with a thigh tourniquet. Formal timeout was performed and the left lower extremity was exsanguinated and the tourniquet was inflated. Fibula: A longitudinal incision placed over the fibular malleolus was undertaken. Combination of sharp and blunt dissection gained access to the fibular fracture in all bleeders were coagulated. Hematoma was evacuated. Any periosteum or fibrous tissue was removed from the fracture line and the fracture surfaces were lightly curetted. Then utilizing manual reduction techniques and reduction clamps the fibula and mortise were then reduced. 3.5 mm cortical lag screw was placed across the fracture line and compression was noted. 3.5 mm locking fibular plate was placed over the fibula which was held in place temporarily. Then locking and nonlocking screws were placed according to the heel top lift splitter's standard directions. Stability across the fracture was noted and all temporary fixation was removed. The site was irrigated. Transverse medial malleolus fracture was noted to be small and given poor soft tissue envelope decision was made to treat this fracture closed. The anterior inferior tibiofibular ligament of the syndesmosis was noted to be ruptured under direct visualization and stress examination under fluoroscopy revealed widening of the syndesmosis therefore decision was made to stabilize the syndesmosis with screw fixation. The syndesmosis was reduced manually then 3 3.5 mm screws were placed through the plate across the fibula and tibia according to the heel top lift splitter's direction. The syndesmosis was stressed and noted to be stable. The surgical site was irrigated with copious sterile saline and incisions were closed in layers. The tourniquet was deflated with a prompt hyperemic response. A dry sterile dressing followed by a multilayered modified Adames posterior splint was applied. Patient was then transferred to the recovery room with vital signs stable and brisk capillary refill to the toes. Postoperative plan: Transfer to medical surgical unit and medical management by the hospitalist Strict nonweightbearing left ankle Begin DVT prophylaxis tomorrow morning Perioperative antibiotics ordered Patient will likely require discharge to custodial facility as she is a tremendous fall risk and with upper body weakness will have difficulty maintaining nonweightbearing status. Will follow Implants: Medline 3.5 mm locking fibular plate 3.5 mm syndesmotic screws (x3) Anesthesia: regional and General-LMA Surgeon: Kaden Zepeda Rn Ante Partum: Bre Reed Estimated blood loss (mL): 25 Tourniquet time (min): 59 Pathology: none sent Condition: stable Disposition: PACU
--- NOTE | 2024-12-27 13:29 | XR_ITS ---
[place] [id number] Patient Name: LUMA RIBEIRO MRN: [id number] date: 1945 Sex: F Assigned Patient Location: MS Current Patient Location: MS Accession/Order Number: [id number] Exam Date: 12/27/2024 15:59 Report Date: 12/27/2024 16:14 At the request of: KELLY MOSES DPRen Procedure: XR ankle LT min 3V LEFT ANKLE - 3 views CLINICAL HISTORY: bimalleolar fracture COMPARISON: Left ankle series 12/18/2024 FINDINGS: Soft tissues demonstrate postoperative changes. Hardware fixation is seen involving the patient's bimalleolar fracture without evidence of hardware complication . XR/XR ankle LT min 3V IMPRESSION: POSTOPERATIVE CHANGES. NO HARDWARE COMPLICATION. Impression dictated by: Jayce De La Garza Jr., D.O. 12/27/2024 4:14 PM Dictation Location: [place] [address] Electronically authenticated by: [id number] Y Date: 12/27/2024 16:14
--- NOTE | 2024-12-27 13:29 | PC.NURSE ---
Consent obtained for block by Dr. Spring.[email or web address] Time out performed per protocol. Patient positioned. Patient placed on O2 and monitors. Medicated per Dr. Spring. Two sites were blocked. Starting at 1258 and ending at 1304. Patient tolerated procedure well. Patient was taken to the OR right away following block.
[2024-12-27] MEDS: HYDROMORPHONE HCL 0.5 MG/0.5 ML SYRINGE IV (15:39)
--- NOTE | 2024-12-27 15:46 | SWNOTE1 ---
SW checked to see if pt had arrived back to room yet. Pt is still not in room, still over in surgery.
--- NOTE | 2024-12-27 15:54 | SWNOTE1 ---
If pt does need skilled at discharge, please contact SW via phone and SW can attempt to get placement. Per Medicare guidelines, 3 day inpt stay for them to pay. Pt was made inpt on 12/26/24.
--- NOTE | 2024-12-27 16:32 | SWNOTE1 ---
Pt arrived back to floor and was able to converse with AMARA. She voiced there is no way she can return home as she is NWB. She voiced she has been to [facility] in past and will not go anywhere else. AMARA called [facility]. [facility] Monday. SW to send referral. AMARA updated nurse and took packet to the floor. [facility] will review and let AMARA know.
[2024-12-27] MEDS: CHOLECALCIFEROL (VITAMIN D3) 125 MCG/5,000 UNIT TABLET PO (18:04)
[2024-12-27] MEDS: ATORVASTATIN CALCIUM 10 MG TABLET PO (20:55)
[2024-12-27] MEDS: ZOLPIDEM TARTRATE 10 MG TABLET PO (21:54)
[2024-12-27] MEDS: SENNOSIDES/DOCUSATE SODIUM 1 TAB TABLET PO (21:54)
[2024-12-27] MEDS: CEFAZOLIN SODIUM/DEXTROSE,ISO 1 GM/50 ML PREMIX IV (21:55)
[2024-12-28] VITALS (19 sets, daily range): BP systolic 104–154; BP diastolic 61–91; PULSE 55–82; TEMP 36.6–36.8; O2SAT 71–99
[2024-12-28] MEDS: HEPARIN SODIUM (PORCINE) 5,000 UNIT/ML VIAL 5000 UNIT SUBQ ×3 (06:18→21:24)
[2024-12-28] MEDS: TIZANIDINE HCL 4 MG TABLET 2 MG PO ×3 (06:19→21:24)
[2024-12-28] MEDS: CEFAZOLIN SODIUM/DEXTROSE,ISO 1 GM/50 ML PREMIX IV ×3 (06:19→21:23)
[2024-12-28 06:46] LABS: Hematocrit 35.7 % (36.0-48.0); Hemoglobin 11.6 g/dL (12.0-16.0); Mean Corpuscular HGB Conc 32.5 g/dL (29.9-35.2); Mean Corpuscular Hemoglobin 32.0 pg (26.7-34.0); Mean Corpuscular Volume 98.6 fL (81.0-99.0); Platelet Count 176 10^3/uL (150-450); Red Blood Count 3.62 10^6/uL (4.20-5.40); White Blood Count 9.5 10^3/uL (4.0-11.0)
[2024-12-28 06:56] LABS: Anion Gap 11.3; Blood Urea Nitrogen 20.0 mg/dL (7.0-18.0); Calcium 8.3 mg/dL (8.5-10.1); Carbon Dioxide 29.4 mmol/L (21.0-32.0); Chloride 101 mmol/L (98-107); Estimated GFR (African America 58 (>=60 mL/min/1.73m^2); Estimated GFR (Non-African Ame 48 (>=60 mL/min/1.73m^2); Glucose 143 mg/dL (74-106); Potassium 4.7 mmol/L (3.5-5.1); Sodium 137 mmol/L (136-145)
[2024-12-28] MEDS: CHOLECALCIFEROL (VITAMIN D3) 125 MCG/5,000 UNIT TABLET PO (09:02)
[2024-12-28] MEDS: MAGNESIUM OXIDE 400 MG TABLET PO (09:02)
[2024-12-28] MEDS: METOPROLOL SUCCINATE 100 MG TAB.ER.24H PO (09:02)
[2024-12-28] MEDS: GABAPENTIN 300 MG CAPSULE PO ×2 (09:02→21:23)
[2024-12-28] MEDS: CETIRIZINE HCL 10 MG TABLET PO (09:02)
[2024-12-28] MEDS: DOCUSATE SODIUM 100 MG CAPSULE PO ×2 (09:02→21:23)
[2024-12-28] MEDS: ALPRAZOLAM 0.25 MG TABLET PO (09:02)
--- NOTE | 2024-12-28 09:09 | P.PN_ITS ---
Progress Note: Subjective Subjective Interval history: Patient is feeling better. No chest pain. No abdominal pain. No cough or congestion. Exam Narrative Exam Narrative: Patient is sitting in bed eating her breakfast. No distress. Able to answer questions. Able to engage. Awake and oriented. Chest is clear, heart is regular. Abdomen soft, nontender. The left leg is wrapped from the knee down to the foot. Constitutional Vital Signs, click to edit/add: Last Vital Signs Temp 97.9 F 12/28/24 07:51 Pulse 65 12/28/24 07:57 Resp 16 12/28/24 07:51 BP 154/86 H 12/28/24 07:51 Pulse Ox 95 12/28/24 07:51 O2 Del Method Room Air 12/28/24 07:51 O2 Flow Rate 2 12/27/24 16:45 Progress Note: Objective Labs Labs: Short CBC 12/28/24 Range/Units 06:05 WBC 9.5 (4.0-11.0) 10^3/uL Hgb 11.6 L (12.0-16.0) g/dL Hct 35.7 L (36.0-48.0) % Plt Count 176 (150-450) 10^3/uL BMP 12/28/24 06:05 Sodium 137 Potassium 4.7 Chloride 101 Carbon Dioxide 29.4 BUN 20.0 H Creatinine 1.10 H Glucose 143 H Calcium 8.3 L Progress Note: A&P Assessment and Plan (1) Chronic heart failure with preserved ejection fraction (HFpEF): (2) Abnormal electrocardiogram [ECG] [EKG]: (3) Bimalleolar ankle fracture: (4) Fall: (5) Hyperlipidemia: (6) Neuropathy: (7) CKD (chronic kidney disease): Plan Left ankle fracture Status post ORIF Defer further needed diagnostic and therapeutic invention relative to her ankle fracture including but not limited to needing to have surgery, ambulation instruction, monitoring wound care, pain management, pharmacological DVT prophy to be addressed by by podiatry team given their expertise and special subject matter. Preoperative medical clearance, risk stratification Completed Patient denies having any chest pain or discomfort. Patient denies any shortness of breath. No clinical evidence of active angina. No clinical evidence of decompensated heart failure. Echocardiogram was done in May sh owed normal ejection fraction without any significant valvular disease. No clinical evidence of active neurological event CKD, at baseline Patient is medically optimized. Patient however continues to have increased risk of having cardiovascular, pulmonary and neurological complication during and postoperatively. No strong contraindication to proceed with surgical intervention at this time. Close monitoring of her condition postoperatively. Postoperative care Monitor for potential postoperative issues and/or complication such as delirium, atelectasis, infection, bleed, ileus and others. I started patient on stool softeners and stimulant. Hypertension. Continue beta-federica CKD stage III Monitor electrolytes and volume status postoperatively Suspect vitamin D deficiency and osteoporosis. Requested to check 25-hydroxy vitamin D level. Vitamin D level Came back at the lower level of normal. I started patient on vitamin D supplementation Recommend DEXA scan to be done in the outpatient setting to be arranged by PCP Functional impairment secondary to ankle fracture. Patient will be discharged to skilled facility tomorrow for PT OT. Patient is nonweightbearing on the left leg. Chronic medical conditions not listed above, incidental findings seen on labs and imaging. These would need to be addressed. Could be addressed when time and condition are appropriate. Could be addressed in the outpatient setting by PCP collaboration with other needed outpatient providers. Urinary Catheter Management Urinary Catheter Management Urethral: Cath placed during this visit: yes, but has since been removed by the nurse Urethral indwelling: No Insertion date: 12/26/24 Insertion time: 15:10 Removal date: 12/28/24 Removal time: 03:00
[2024-12-28] MEDS: SENNOSIDES 8.6 MG TABLET PO (10:25)
--- NOTE | 2024-12-28 10:47 | PT.DAILY ---
Physical Therapy Daily Note PT Daily Note/Assess Start: 12/28/24 10:39 Freq: Status: Active Protocol: Document 12/28/24 09:30 [email or web address] (Rec: 12/28/24 10:47 [id number]) Physical Therapy Daily Note/Assessment Time In/Time Out Time In 09:30 Time Out 09:58 Subjective Subjective Patient denies pain, reports that nerve block is still working and has little feeling in L ankle. Therapeutic Exercise Time Therapeutic Exercise 10 Minutes (minutes) Therapeutic Exercise 1 Units Therapeutic Exercise Treatment Therapeutic Exercise Supine exercises with isometrics and AROM 10 reps each Treatment to promote strength. Only able to do 5 SLR and 5 hip abduction slides on L LE before fatigue. Seated LAQ EOB 10x each LE Therapeutic Activity Time Therapeutic Activity 18 Minutes (minutes) Therapeutic Activity 1 Units Therapeutic Activity Treatment Bed Mobility Ability Minimum Assist,Maximum Assist,1 Person Assist,2 Person Assist Therapeutic Activity Supine to sit min assist x1; Sit to supine was max Comments assist x2 with total assistance at L LE. Max assist to re-position into bed as well. Sit to stand from EOB 5 attempts; only comes up into full standing on last 2 attempts with mod- max assist x1. Able to stand 15 seconds 1st attempt, 30 seconds 2nd attempt. Initially maintains NWB but as fatigues with standing starts to put weight through therapist foot. Cueing to maintain WB. On last attempt of standing verbal cues to patient to pivot foot to move to HOB, patient is unable to pivot on R LE at this time due to weakness. Total Physical Therapy Time Total Therapy 28 Minutes Total Physical 2 Therapy Units Summary Daily Note Summary Patient is very motivated and works hard with PT today. Improved ability with bed mobility and transfers are noted with increased standing time. Due to weakness patient is not able to pivot while maintaining L NWB. Sit to supine transfers continues to require max assist . Patient will benefit from SNF at [place] to improve strength and learn how to transfer with NWB status. Patient was supine in bed with rails up, alarm placed, call light in reach and all needs met.
[2024-12-28] MEDS: ZOLPIDEM TARTRATE 10 MG TABLET PO (21:23)
[2024-12-28] MEDS: ATORVASTATIN CALCIUM 10 MG TABLET PO (21:23)
[2024-12-29] VITALS (9 sets, daily range): BP systolic 140–150; BP diastolic 72–78; PULSE 56–86; TEMP 36.6–36.9; O2SAT 95–98
[2024-12-29] MEDS: ALPRAZOLAM 0.5 MG TABLET PO (02:46)
[2024-12-29] MEDS: TIZANIDINE HCL 4 MG TABLET 2 MG PO ×2 (06:22→14:31)
[2024-12-29] MEDS: CEFAZOLIN SODIUM/DEXTROSE,ISO 1 GM/50 ML PREMIX IV (06:23)
[2024-12-29] MEDS: HEPARIN SODIUM (PORCINE) 5,000 UNIT/ML VIAL 5000 UNIT SUBQ ×2 (06:23→14:31)
--- NOTE | 2024-12-29 09:14 | P.DS_ITS ---
DS: Providers Provider Date of admission: 12/27/24 10:07 Primary care physician: REJI FORRESTER Consults: 12/26/24 15:55 Consult to Podiatry Routine Consulting Provider: Kaden Zepeda Reason for consultation: Ankle FX 12/27/24 12:55 Physical Therapy Eval and Treat Routine Reason for consultation: gait training - NWB left ankle Has provider been notified: No DS: Diagnosis Discharge Diagnosis (1) Chronic heart failure with preserved ejection fraction (HFpEF): (2) Abnormal electrocardiogram [ECG] [EKG]: (3) Bimalleolar ankle fracture: (4) Fall: (5) Hyperlipidemia: (6) Neuropathy: (7) CKD (chronic kidney disease): Plan As listed above, below and others that are not listed DS: Summary Hospital Course Hospital Course: Mrs. Walker is a 79-year-old female who fell down and came to the emergency room complaining of left ankle pain and discomfort. Left ankle fracture Addressed by [facility] worker. Status post open reduction and internal fixation by Dr. Zepeda Defer further needed diagnostic and therapeutic invention relative to her ankle fracture including but not limited to needing to have surgery, ambulation instruction, monitoring wound care, pain management, pharmacological DVT prophy reaccess already progressed by podiatry team given their expertise and special subject matter. Increased risk of DVT. Patient is a morbidly obese. She will be nonweightbearing on the left leg until cleared by [facility] worker. I would recommend continuation of pharmacological DVT prophylaxis, Lovenox 40 mg daily for 30 days. Extension beyond 30 days may be needed depends on her ambulation status to be addressed by long term providers.. Hypertension. Continue beta-federica CKD stage III Monitor electrolytes and volume status postoperatively Suspect vitamin D deficiency and osteoporosis. Requested to check 25-hydroxy vitamin D level. Vitamin D level came back at 39. Patient will be started on vitamin D3 2000 unit daily. Recommend DEXA scan to be done in the outpatient setting to be arranged by PCP Functional impairment secondary to above Patient will be discharged to a correction facility for short-term physical therapy and rehabilitation Chronic medical conditions not listed above, incidental findings seen on labs and imaging. These would need to be addressed. Could be addressed when time and condition are appropriate. Could be addressed in the outpatient setting by PCP collaboration with other needed outpatient providers. Patient has multiple complex medical issues as listed above and others that are not listed. All appear to be stable. I do not have any clear or strong clinical justification to extend inpatient hospitalization. Patient however will require close and frequent monitoring as well as additional work-up, investigation and therapeutic intervention that could take place from this point on post discharge. That is to prevent relapse, decompensation, rehospitalization and other medical implications. I instructed patient to ask her primary care doctor to obtain [facility] record entirely to address abnormalities seen on labs and imaging that I have and have not addressed during this hospitalization, follow- up on pending blood work, imaging and pathology is if available and to follow-up on needed medical care in the outpatient setting. Time Spent with Patient Time attestation: Total time spent providing and/or coordinating discharge services: Exam Narrative Exam Narrative: Patient is lying in bed. No distress. Able to answer questions. Able to engage. Awake and oriented. Chest is clear, heart is regular. Abdomen soft, nontender. The left leg is wrapped from the knee down to the foot. Constitutional Vital Signs, click to edit/add: Last Vital Signs Temp 97.8 F 12/29/24 08:42 Pulse 60 12/29/24 08:42 Resp 16 12/29/24 08:42 BP 150/72 H 12/29/24 08:42 Pulse Ox 95 12/29/24 08:42 O2 Del Method Room Air 12/29/24 08:42 O2 Flow Rate 2 12/27/24 16:45 Discharge Plan Discharge Disposition: Xfer SNF Discharge Medications: New acetaminophen [Tylenol] 325 mg Tablet 650 mg PO Q6H PRN (Reason: Pain) Qty: 0 0RF tizanidine 4 mg Tablet 2 mg PO Q8H PRN (Reason: Muscle spasm) Qty: 0 0RF sennosides-docusate sodium [Senna Plus] 8.6-50 mg Tablet 1 tab-cap PO QD PRN (Reason: Constipation) Qty: 0 0RF docusate sodium 100 mg Capsule 100 mg PO BID PRN (Reason: Constipation) Qty: 0 0RF enoxaparin [Lovenox] 40 mg/0.4 mL syringe 40 mg subcut DAILY 30 Days Qty: 12 0RF oxycodone 5 mg Tablet 5 mg PO Q4H PRN (Reason: Pain Scale 4-6) Qty: 12 0RF cholecalciferol (vitamin D3) [Vitamin D3] 50 mcg (2,000 unit) tablet 50 mcg PO DAILY Qty: 30 0RF Continued simvastatin 10 mg tablet 10 mg PO DAILY metoprolol succinate 100 mg tablet extended release 24 hr 100 mg PO DAILY magnesium oxide 400 mg (241.3 mg magnesium) tablet 400 mg PO DAILY fexofenadine [Radha Allergy] 180 mg tablet 180 mg PO DAILY gabapentin 300 mg capsule 300 mg PO BID isosorbide mononitrate 30 mg tablet extended release 24 hr 30 mg PO DAILY Changed alprazolam 0.25 mg tablet 0.25 mg PO DAILY PRN (Reason: anxiety) Qty: 5 0RF Discontinued hydrocodone-acetaminophen 5-325 mg tablet 1 tab PO Q4H PRN (Reason: pain) zolpidem 10 mg tablet 10 mg PO .QHS meloxicam 15 mg tablet 15 mg PO DAILY tizanidine 4 mg tablet 4 mg PO Q8H metoprolol succinate 50 mg tablet extended release 24 hr 50 mg PO BID Qty: 0 0RF Print Language: Kazakh Activity Restrictions/Additional Instructions: I may not have addressed or treated all of your medical illnesses or the abnormal blood work or imaging studies during this hospitalization. Please ask your primary care provider to obtain [facility] records entirely to follow up on all of the abnormal physical, laboratory, and imaging findings that I have not addressed. Please return back to the emergency room or seek medical attention if your symptoms worsen or return. For long term provider Fall risk Nonweightbearing on the left leg CBC and BMP weekly for 2 weeks Discharging you from [facility] does not mean that your medical care ends here and now. You may still need additional monitoring, work up, investigation, and treatment plan to be handled from this point on by out patient providers including your primary care provider and specialists. For any medication question, please contact your retail pharmacist or your primary care provider. Thank you. Forms: Portal Instructions Referrals: REJI FORRESTER [Primary Care Provider, Internal Medicine] Kaden Zepeda DPM [Physician, Podiatry]
[2024-12-29] MEDS: ACETAMINOPHEN 325 MG TABLET 650 MG PO (09:19)
[2024-12-29] MEDS: MAGNESIUM OXIDE 400 MG TABLET PO (09:20)
[2024-12-29] MEDS: CHOLECALCIFEROL (VITAMIN D3) 125 MCG/5,000 UNIT TABLET PO (09:20)
[2024-12-29] MEDS: CETIRIZINE HCL 10 MG TABLET PO (09:20)
[2024-12-29] MEDS: SENNOSIDES 8.6 MG TABLET PO (09:20)
[2024-12-29] MEDS: ALPRAZOLAM 0.25 MG TABLET PO (09:20)
[2024-12-29] MEDS: GABAPENTIN 300 MG CAPSULE PO (09:20)
[2024-12-29] MEDS: DOCUSATE SODIUM 100 MG CAPSULE PO (09:20)
[2024-12-29] MEDS: METOPROLOL SUCCINATE 100 MG TAB.ER.24H PO (09:20)
--- NOTE | 2024-12-29 10:34 | PM.PN ---
Progress Note: Subjective Subjective Interval history: Patient is feeling well. Has been working with PT on NWB. Appetite is good. Ankle pain controlled. Denies calf pain, chest pain and SOB Exam Narrative Exam Narrative: Splint is c/d/i. Able to wiggle toes. No calf pain on squeeze Constitutional Vital Signs, click to edit/add: Last Vital Signs Temp 97.8 F 12/29/24 08:42 Pulse 86 12/29/24 10:00 Resp 16 12/29/24 08:42 BP 150/72 H 12/29/24 08:42 Pulse Ox 95 12/29/24 08:42 O2 Del Method Room Air 12/29/24 08:42 O2 Flow Rate 2 12/27/24 16:45 Progress Note: A&P Assessment and Plan (1) Chronic heart failure with preserved ejection fraction (HFpEF): (2) Abnormal electrocardiogram [ECG] [EKG]: (3) Bimalleolar ankle fracture: Qualifiers: Encounter type: initial encounter Fracture type: closed Laterality: left Qualified Code(s): S82.842A - Displaced bimalleolar fracture of left lower leg, initial encounter for closed fracture (4) Fall: (5) Hyperlipidemia: (6) Neuropathy: (7) CKD (chronic kidney disease): (8) Syndesmotic disruption of left ankle: Plan Patient is POD2 s/p ORIF left fibular fx with syndesmotic stabilization She is doing well although remains high risk for falls. Agree with d/c to SNF. Prescriptions placed in chart - for percocet 5/325 i PO q4h prn & Heparin Scrict NWB. Ice and elevate above heart. Continue working with PT at SNF on transfers and gait training F/u in my office in 2 weeks Urinary Catheter Management Urinary Catheter Management Urethral: Cath placed during this visit: yes, but has since been removed by the nurse Urethral indwelling: No Insertion date: 12/26/24 Insertion time: 15:10 Removal date: 12/28/24 Removal time: 03:00
[2024-12-29] MEDS: OXYCODONE HCL 5 MG TABLET PO (14:31)
--- NOTE | 2024-12-31 11:24 | SWNOTE1 ---
AMARA called and spoke to Rock at the [facility] in regards to CBC and BMP weekly for 2 weeks order that was not placed on [facility] at discharge. Rock stated they will need an order to complete this. AMARA let case management know.
--- NOTE | 2024-12-31 11:42 | CM.NOTE ---
E-mailed lab work ordered from Dr. Singh at discharge for CBC and BMP weekly x2 weeks to
--- NOTE | 2025-01-01 10:52 | PC.NURSE ---
Follow up appt. with Dr. Zepeda on 01/10 @ 9:30am [address] [facility], [address], [address], [place] [phone]
--- NOTE | 2025-01-01 13:54 | CM.NOTE ---
Faxed patients f/u appointment information to [facility] to give to pt.
--- OUTSIDE RECORDS SUMMARY | 2025-01-24 14:45 | XMS_ITS | Encounter Summary ---
Author Organization [facility] Address [address] [place] [address] Care Team Providers Care Vp Data Name Role Phone Roc Steele MD Unavailable [phone] Roc Steele MD Primary Care Provider [phone] Roc Steele MD Unavailable [phone] Luis Felipe Dugan DO Unavailable [phone] Raya Holt RN Unavailable [phone] Gladis Laird LPN Unavailable Encounter Details [...] often do you attend chur ch or yazidi services? Never 11/25/2022 Do you [...] and heating? Not hard at all 11/25/2022 [facility] of Occupat ional Health - Occupational [...] as of this encounter Plan of Treatment Not on file documented as of this encounter Procedures Procedure Name Priority Date/Time Associated Diagnosis Comments XR CHEST 2V 06/22/2023 3:17 PM EST documented in this encounter Results * XR CHEST 2V (06/22/2023 3:17 PM EST) Anatomical Region Laterality Modality Other 06/22/2023 3:17 PM EST Narrative 06/22/2023 3:19 [place] [address] XRay Report Signed Patient: USHA WALKER MR#: [id number] : 1945 Acct:[id number] Age/Sex: 77 / F ADM Date: 06/22/23 Loc: LAB Attending Dr: ALMAS ALFREDO Ordering Physician: ALMAS ALFREDO Date of Service: 06/22/23 Procedure(s): XR chest 2V Accession Number(s): [id number] cc: ROC STEELE ; ALMAS ALFREDO [place] [id number] Patient Name: USHA WALKER MRN: [facility]:[id number] date: 1945 Sex: F Assigned Patient Location: LAB Current Patient Location: LAB Accession/Order Number: [id number] Exam Date: 06/22/2023 14:05 Report Date: 06/22/2023 15:17 At the request of: ALMAS ALFREDO Procedure: XR chest 2V PROCEDURE: XR chest [...] Signed By: 06/22/23 1519 DD/ 1517 TD/TT: Aluminum Shingle Roofer: Procedure Note Radiology, Radiologist, - 06/22/2023 [facility] [place] [id number] XRay Report Signed Patient: USHA WALKER KMR#: [id number] : 1945cct:[id number] Age/Sex: 77 / FADM Date: 06/22/23 Loc: LAB Attending Dr: ALMAS ALFREDO Ordering Physician: ALMAS ALFREDO Date of Service: 06/22/23 Procedure(s): XR chest 2V Accession Number(s): [id number] cc: ROC STEELE ; ALMAS ALFREDO [facility] [place] [id number] Patient Name: USHA WALKER MRN: [id number] date: 1945 Sex: F Assigned Patient Location: LAB Current Patient Location: LAB Accession/Order Number: [id number] Exam Date: 06/22/2023 14:05 Report Date: 06/22/2023 15:17 At the request of: ALMAS ALFREDO Procedure: XR chest 2V PROCEDURE: XR chest [...] M.D. Signed By:06/22/23 1519 DD/ 1517 TD/TT: Aluminum Shingle Roofer: us Generic External Data Provider [facility] Final Result documented in this encounter Visit Diagnoses Not on filedocumented in this encounter Care Teams Vp Data Relationship Specialty Start Date End Date Roc Steele MD [address] [facility] [address] [place] [address] PCP - ACO Reach 09/22/22 06/29/23 Roc Steele MD [address] [facility] [address] [place] [address] PCP - General Internal Medicine 09/28/22 Roc Steele MD [address] [facility] 110 [place] [address] PCP - ACO Reach 08/30/23 Luis Felipe Dugan DO [address] [place] [address] Referring Physician Neurology 03/07/24 Raya Holt, RN [address] [place] [address] Clinical Advocate Family Medicine 06/07/24 07/19/24 Gladis Laird LPN 112 [facility] 110 [place] [address] 07/19/24 documented as of this encounter
--- OUTSIDE RECORDS SUMMARY | 2025-01-24 14:45 | XMS_ITS | Clinical Summary ---
Author Organization [facility] Address [address] [place] [address], [address] [place] [address] Care Team Providers Care Septic Tank Servicer Name Role Phone Unavailable Primary Care Provider [...]
--- OUTSIDE RECORDS SUMMARY | 2025-01-24 14:45 | XMS_ITS | Encounter Summary ---
Author Organization [facility] Address [address] [place] [place] [address] Care Team Providers Care Asw Specialist Name Role Phone Roc Steele MD Primary Care Provider [phone] Roc Steele MD Unavailable [phone] Luis Felipe Dugan DO Unavailable [phone] Raya Holt RN Unavailable [phone] Gladis Laird LPN Unavailable Encounter Details Date Type Department Care Team (Late st Contact Info) Description 06/10/2024 Orders Only [facility] [place] [facility] [address] [place] [address] [place] [phone] Unallocated, Noms Provider, [address] [place], [place] [address] Social History Tobacco Use Types Packs/Day Years [...] Recorded Patient Health Questionnaire-2 Score 0 07/06/2023 [facility] [place] of Occupat ional Health - Occupational Stress [...] documented as of this encounter Care Teams Asw Specialist Relationship Specialty Start Date End Date Roc Steele MD [address] [facility] 110 [place] [address] PCP - General Internal Medicine 09/28/22 Roc Steele MD [address] [facility] 110 [place] [address] PCP - ACO Reach 08/30/23 Luis Felipe Dugan DO [address] [facility] [address] [place] [address] Referring Physician Neurology 03/07/24 Raya Holt, CARMEN [address] [place] [address] Clinical Advocate Family Medicine 06/07/24 07/19/24 Gladis Laird LPN [address] [facility] 110 [place] [address] 07/19/24 documented as of this encounter
--- OUTSIDE RECORDS SUMMARY | 2025-01-24 14:45 | XMS_ITS ---
Author Organization [facility] Address [address] [place] [address] Care Team Providers Care Sr. Vendor Management Associate Name Role Phone Roc Steele MD Primary Care Provider [phone] Roc Steele MD Unavailable [phone] Luis Felipe Dugan DO Unavailable [phone] Gladis Laird LPN Unavailable Fpc Facility Transitional Care Management Status:Enrolled (Active) Start date:12/29/2024 Enrollment date:01/01/2025 Enrollment reason:Identified using hospital discharge data Overview Patient discharged from [facility] on 12/29. Patient admitted to [facility]. Please contact SNF facility for FRANSISCA (inpt to SNF) within 48 hours. Case Team Name Relationship Phone Doris Longo LPN(Responsible Staff) Licensed Pr actical Nurse [phone] Continued Care and Services Coordination
--- OUTSIDE RECORDS SUMMARY | 2025-01-24 14:45 | XMS_ITS | Encounter Summary ---
Author Organization [facility] Address [address] [place] [address] Care Team Providers Care Foreign Exchange Position Clerk Name Role Phone Roc Steele MD Primary Care Provider [phone] Roc Steele MD Unavailable [phone] RitchieBulljulianojean-claude JORDAN Unavailable [phone] Gladis Laird LPN Unavailable Encounter Details Date Type Department Care Team (Late st Contact Info) Description 12/31/2024 Abstract [facility] [place] [facility] [address] [facility] 110 [place] [address] Roc Steele MD 112 [facility] 110 [place] [address] Social History Tobacco Use Types Packs/Day Years [...] often do you attend chur ch or samaritan services? Never 11/25/2022 Do you belong to [...] Recorded Patient Health Questionnaire-2 Score 0 10/16/2024 [facility] of Occupat ional Health [...] on file documented as of this encounter Visit Diagnoses Not on filedocumented in this encounter Additional Health Concerns Assessment Noted Time PHQ-9 Depression Total Score: 0 07/06/19 24 3:00 PM EST documented as of this encounter Care Teams Foreign Exchange Position Clerk Relationship Specialty Start Date End Date Roc Steele MD [address] [place] [address] PCP - General Internal Medicine 09/28/22 Roc Steele MD [address] [place] [address] PCP - ACO Reach 08/30/23 Luis Felipe Dugan DO [address] [place] [address] Referring Physician Neurology 03/07/24 Gladis Laird LPN 112 [facility] 110 [place] [address] 07/19/24 documented as of this encounter
--- OUTSIDE RECORDS SUMMARY | 2025-01-24 14:45 | XMS_ITS | Encounter Summary ---
Author Organization [facility] Address [address] [place] [address] Care Team Providers Care Store Group Manager Name Role Phone Roc Steele MD Primary Care Provider [phone] Roc Steele MD Unavailable [phone] Luis Felipe Dugan DO Unavailable [phone] Raya Holt RN Unavailable [phone] Gladis Laird LPN Unavailable Encounter Details Date Type Department Care Team (Late st Contact Info) Description 07/02/2024 Abstract [facility] [place] [facility] [address] [facility] 110 [place] [address] Roc Steele MD [address] [facility] 110 [place] [address] Social History Tobacco Use Types Packs/Day Years [...] How often do you attend chur or baptist services? Never 11/25/2022 Do you [...] Recorded Patient Health Questionnaire-2 Score 0 07/03/2024 [facility] [place] of Occupat ional Health - Occupational Stress [...] documented as of this encounter Care Teams Store Group Manager Relationship Specialty Start Date End Date Roc Steele MD [address] [facility] 110 [place] [address] PCP - General Internal Medicine 09/28/22 Roc Steele MD [address] [facility] 110 [place] [address] PCP - ACO Reach 08/30/23 Luis Felipe Dugan DO [address] [place] [address] Referring Physician Neurology 03/07/24 Raya Holt, CARMEN [address] [place], [place] [address] Clinical Advocate Family Medicine 06/07/24 07/19/24 Gladis Laird LPN [address] [facility] 110 [place] [address] 07/19/24 documented as of this encounter
--- OUTSIDE RECORDS SUMMARY | 2025-01-24 14:45 | XMS_ITS | Encounter Summary ---
Author Organization [facility] Address [address] [place] [address] Care Team Providers Care Lace Paper Machine Operator Name Role Phone Roc Steele MD Primary Care Provider [phone] Roc Steele MD Unavailable [phone] Luis Felipe Dugan DO Unavailable [phone] Raya Holt RN Unavailable [phone] Gladis Laird LPN Unavailable Encounter Details Date Type Department Care Team (Late st Contact Info) Description 07/11/2024 Abstract [facility] [place] [facility] [address] [facility] 110 [place] [address] Roc Steele MD [address] [facility] 110 [place] [address] Social History Tobacco Use Types Packs/Day Years [...] Recorded Patient Health Questionnaire-2 Score 0 07/11/2024 [facility] of Occupat ional Health - Occupational Stress [...] hopeless Not at all 07/11/2024 1:00 PM [facility] N Patient Health Questionnaire [...] documented as of this encounter Care Teams Lace Paper Machine Operator Relationship Specialty Start Date End Date Roc Steele MD [address] [facility] 110 [place] [address] PCP - General Internal Medicine 09/28/22 Roc Steele MD [address] [facility] 110 [place] [address] PCP - ACO Reach 08/30/23 Luis Felipe Dugan DO [address] [place] [address] Referring Physician Neurology 03/07/24 Raya Holt, RN [address] [place] [address] Clinical Advocate Family Medicine 06/07/24 07/19/24 Gladis Laird LPN [address] [facility] 110 [place] [address] 07/19/24 documented as of this encounter
--- OUTSIDE RECORDS SUMMARY | 2025-01-24 14:45 | XMS_ITS | Encounter Summary ---
Author Organization [facility] Address [address] [place] [address] Care Team Providers Care Film Color Tester Name Role Phone Roc Steele MD Primary Care Provider [phone] Roc Steele MD Unavailable [phone] RitchieBulljulianojean-claude JORDAN Unavailable [phone] Gladis Laird LPN Unavailable Encounter Details Date Type Department Care Team (Late st Contact Info) Description 11/18/2024 Abstract [facility] [place] [facility] [address] [facility] [facility] 110 [place] [address] Roc Steele MD 112 [facility] 110 [place] [address] Social History Tobacco Use Types Packs/Day Years [...] Recorded Patient Health Questionnaire-2 Score 0 10/16/2024 [facility] of Occupat [...] documented as of this encounter Care Teams Film Color Tester Relationship Specialty Start Date End Date Roc Steele MD [address] [place] [address] PCP - General Internal Medicine 09/28/22 Roc Steele MD [address] [place] [address] PCP - ACO Reach 08/30/23 Luis Felipe Dugan DO [address] [place] [address] Referring Physician Neurology 03/07/24 Gladis Laird LPN 112 [facility] 110 [place] [address] 07/19/24 documented as of this encounter
--- OUTSIDE RECORDS SUMMARY | 2025-01-24 14:45 | XMS_ITS | Encounter Summary ---
Author Organization [facility] Address [address] [place] [address] Care Team Providers Care Angiography Technologist Name Role Phone Roc Steele MD Primary Care Provider [phone] Roc Steele MD Unavailable [phone] Luis Felipe Dugan DO Unavailable [phone] Gladis Laird LPN Unavailable Encounter Details Date Type Department Care Team (Latest Contact Info) Description 12/03/2024 Results [facility] [address] [place] [address] [place] [phone] MR LUMBAR SPINE WO CON Social History [...] Recorded Patient Health Questionnaire-2 Score 0 10/16/2024 [facility] of Occupat ionid Health - Occupational Stress [...] documented as of this encounter Care Teams Angiography Technologist Relationship Specialty Start Date End Date Roc Steele MD [address] [facility] 110 [place] [address] PCP - General Internal Medicine 09/28/22 Roc Steele MD [address] [facility] 110 [place], [place] [address] PCP - ACO Reach 08/30/23 Luis Felipe Dugan DO [address] [place] [address] Referring Physician Neurology 03/07/24 Gladis Laird LPN 112 [facility] 110 [place] [address] 07/19/24 documented as of this encounter
--- OUTSIDE RECORDS SUMMARY | 2025-01-24 14:45 | XMS_ITS | Encounter Summary ---
Author Organization [facility] Address [address] [place] [address] Care Team Providers Care Child Nurse Name Role Phone Roc Steele MD Unavailable [phone] Roc Steele MD Primary Care Provider [phone] Roc Steele MD Unavailable [phone] Luis Felipe Dugan DO Unavailable [phone] Raya Holt RN Unavailable [phone] Gladis Laird LPN Unavailable Encounter Details Date Type Department Care Team (Late st Contact Info) Description 03/02/2023 Abstract [facility] [place] [facility] [address] [facility] 110 [place] [address] Roc Steele MD [address] [facility] 110 [place], [place] [address] Social History Tobacco Use Types Packs/Day Years [...] heating? Not hard at all 11/25/2022 [facility] of Occupat ional Health - Occupational [...] on filedocumented in this encounter Care Teams Child Nurse Relationship Specialty Start Date End Date Roc Steele MD [address] [facility] 110 [place] [address] PCP - ACO Reach 09/22/22 06/29/23 Roc Steele MD [address] [facility] 110 [place] [address] PCP - General Internal Medicine 09/28/22 Roc Steele MD [address] [facility] 110 [place] [address] PCP - ACO Reach 08/30/23 Luis Felipe Dugan DO [address] [place] [address] Referring Physician Neurology 03/07/24 Raya Holt, RN [address] [place] [address] Clinical Advocate Family Medicine 06/07/24 07/19/24 Gladis Laird LPN 112 [facility] 110 [place] [address] 07/19/24 documented as of this encounter
--- OUTSIDE RECORDS SUMMARY | 2025-01-24 14:45 | XMS_ITS ---
Author Organization [facility] Address [address] [place] [address] Care Team Providers Care Tassel Making Machine Operator Name Role Phone Roc Steele MD Primary Care Provider [phone] Roc Steele MD Unavailable [phone] Luis Felipe Dugan DO Unavailable [phone] Gladis Laird LPN Unavailable Chronic Care Management (CCM) Status:Enrolled (Active) Start date:07/30/2016 Enrollment date:07/30/2016 Overview 03/01/23, 9:16 AM - Lydiamonday, LARRY- Patient gives verbal consent to be enrolled in CCM Program and understands there could be a bill for this service. Case Team Name Relationship Phone Gladis Laird LPN(Responsible Staff) [phone] Continued Care and Services Coordination
--- OUTSIDE RECORDS SUMMARY | 2025-01-24 14:45 | XMS_ITS | Encounter Summary ---
Author Organization [facility] Address [address] [place] [address] Care Team Providers Care Fuel Retrofitting Technician Name Role Phone Roc Steele MD Unavailable [phone] Roc Steele MD Primary Care Provider [phone] Roc Steele MD Unavailable [phone] Luis Felipe Dugan DO Unavailable [phone] Raya Holt RN Unavailable [phone] Gladis Laird LPN Unavailable Encounter Details [...] and heating? 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 Signed By:06/22/23221806/22/232218 DD/ 1424 TD/TT: Car Mechanic: us Generic External Data Provider [facility] Final Result documented in this encounter Visit Diagnoses Not on filedocumented in this encounter Care Teams Fuel Retrofitting Technician Relationship Specialty Start Date End Date Roc Steele MD [address] [facility] 110 [place] [address] PCP - ACO Reach 09/22/22 06/29/23 Roc Steele MD [address] [facility] 110 [place] [address] PCP - General Internal Medicine 09/28/22 Roc Steele MD [address] [facility] 110 [place] [address] PCP - ACO Reach 08/30/23 Luis Felipe Dugan DO [address] [place] [address] Referring Physician Neurology 03/07/24 Raya Holt, CARMEN [address] [place] [address] Clinical Advocate Family Medicine 06/07/24 07/19/24 Gladis Laird LPN [address] [facility] 110 [place] [address] 07/19/24 documented as of this encounter
--- OUTSIDE RECORDS SUMMARY | 2025-01-24 14:45 | XMS_ITS | Encounter Summary ---
Author Organization [facility] Address [address] [place] [address] Care Team Providers Care Licensed Insurance Sales Agent Name Role Phone Roc Steele MD Primary Care Provider [phone] Roc Steele MD Unavailable [phone] Luis Felipe Dugan DO Unavailable [phone] Raya Holt RN Unavailable [phone] Gladis Laird LPN Unavailable Encounter Details Date Type Department Care Team (Late st Contact Info) Description 06/27/2024 Abstract [facility] [place] [facility] [address] [facility] 110 [place] [address] Roc Steele MD [address] [facility] [address] [place] [address] Social History Tobacco Use Types Packs/Day Years [...] Recorded Patient Health Questionnaire-2 Score 0 07/06/2023 [facility] [place] of Occupat ional Health - Occupational Stress [...] documented as of this encounter Care Teams Licensed Insurance Sales Agent Relationship Specialty Start Date End Date Roc Steele MD [address] [facility] [address] [place] [address] PCP - General Internal Medicine 09/28/22 Roc Steele MD [address] [facility] [address] [place] [address] PCP - ACO Reach 08/30/23 Luis Felipe Dugan DO [address] [place] [address] Referring Physician Neurology 03/07/24 Raya Holt, RN [address] [place] [address] Clinical Advocate Family Medicine 06/07/24 07/19/24 Gladis Laird LPN 112 [facility] 110 [place] [address] 07/19/24 documented as of this encounter
--- OUTSIDE RECORDS SUMMARY | 2025-01-24 14:45 | XMS_ITS | Encounter Summary ---
Author Organization [facility] Address [address] [place] [address] Care Team Providers Care Scenic Arts Supervisor Name Role Phone Roc Steele MD Primary Care Provider [phone] Roc Steele MD Unavailable [phone] Luis Felipe Dugan DO Unavailable [phone] Raya Holt RN Unavailable [phone] Gladis Laird LPN Unavailable Encounter Details Date Type Department Care Team (Late st Contact Info) Description 07/11/2024 Abstract [facility] [place] [facility] [address] [facility] 110 [place] [address] Roc Steele MD [address] [facility] [address] [place] [address] Social History Tobacco Use Types Packs/Day Years [...] Recorded Patient Health Questionnaire-2 Score 0 07/11/2024 [facility] [place] of Occupat ional Health - Occupational Stress [...] documented as of this encounter Care Teams Scenic Arts Supervisor Relationship Specialty Start Date End Date Roc Steele MD [address] [facility] 110 [place] [address] PCP - General Internal Medicine 09/28/22 Roc Steele MD [address] [facility] 110 [place] [address] PCP - ACO Reach 08/30/23 Luis Felipe Dugan DO [address] [place] [address] Referring Physician Neurology 03/07/24 Raya Holt, RN [address] [place] [address] Clinical Advocate Family Medicine 06/07/24 07/19/24 Gladis Laird LPN [address] [facility] 110 [place] [address] 07/19/24 documented as of this encounter
--- OUTSIDE RECORDS SUMMARY | 2025-01-24 14:45 | XMS_ITS | Encounter Summary ---
Author Organization [facility] Address [address] [place] [address] Care Team Providers Care Second Vp Hr Assessment Name Role Phone Roc Steele MD Primary Care Provider [phone] Roc Steele MD Unavailable [phone] Luis Felipe Dugan DO Unavailable [phone] Raya Holt RN Unavailable [phone] Gladis Laird LPN Unavailable Encounter Details Date Type Department Care Team (Late st Contact Info) Description 06/25/2024 Abstract [facility] [place] [facility] [address] [facility] 110 [place] [address] Roc Steele MD [address] [facility] [address] [place] [address] Social History Tobacco Use Types Packs/Day Years [...] Patient Health Questionnaire-2 Score 0 07/06/2023 [facility] [place] of Occupat ional Health - Occupational Stress [...] documented as of this encounter Care Teams Second Vp Hr Assessment Relationship Specialty Start Date End Date Roc Steele MD [address] [facility] 110 [place] [address] PCP - General Internal Medicine 09/28/22 Roc Steele MD [address] [facility] [address] [place] [address] PCP - ACO Reach 08/30/23 Luis Felipe Dugan DO [address] [place] [address] Referring Physician Neurology 03/07/24 Raya Holt, RN [address] [place] [address] Clinical Advocate Family Medicine 06/07/24 07/19/24 Gladis Laird LPN 112 [facility] 110 [place] [address] 07/19/24 documented as of this encounter
--- OUTSIDE RECORDS SUMMARY | 2025-01-24 14:45 | XMS_ITS | Encounter Summary ---
Author Organization [facility] Address [address] [place] [address] Care Team Providers Care Automotive Tire Technician Name Role Phone Roc Steele MD Unavailable [phone] Roc Steele MD Primary Care Provider [phone] Roc Steele MD Unavailable [phone] Luis Felipe Dugan DO Unavailable [phone] Raya Holt RN Unavailable [phone] Gladis Laird LPN Unavailable Encounter Details Date Type Department Care Team (Late st Contact Info) Description 03/01/2023 Abstract [facility] [place] [facility] [address] [facility] 110 [place] [address] Aarti Castillo, STUDENT TRUCK DRIVER [address] [facility] 110 [place], [place] [address] Social History Tobacco Use Types Packs/Day Years [...] and heating? Not hard at all 11/25/2022 [facility] of Occupat ionaz Health - Occupational Stress Questionnaire Answer Date [...] on filedocumented in this encounter Care Teams Automotive Tire Technician Relationship Specialty Start Date End Date Roc Steele MD [address] [facility] 110 [place] [address] PCP - ACO Reach 09/22/22 06/29/23 Roc Steele MD [address] [facility] 110 [place] [address] PCP - General Internal Medicine 09/28/22 Roc Steele MD [address] [facility] [address] [place] [address] PCP - ACO Reach 08/30/23 Luis Felipe Dugan DO [address] [place] [address] Referring Physician Neurology 03/07/24 Raya Holt, RN [address] [place] [address] Clinical Advocate Family Medicine 06/07/24 07/19/24 Gladis Laird LPN 112 [facility] 110 [place] [address] 07/19/24 documented as of this encounter
--- OUTSIDE RECORDS SUMMARY | 2025-01-24 14:46 | XMS_ITS | Encounter Summary ---
Author Organization [facility] Address [address] [place] [address] Care Team Providers Care Trap Operator Name Role Phone Roc Steele MD Primary Care Provider [phone] Roc Steele MD Unavailable [phone] Luis Felipe Dugan DO Unavailable [phone] Raya Holt RN Unavailable [phone] Gladis Laird LPN Unavailable Encounter Details Date Type Department Care Team (Late st Contact Info) Description 05/07/2024 Abstract [facility] [place] [facility] [address] [facility] 110 [place] [address] Roc Steele MD [address] [facility] 110 [place] [address] Social History Tobacco Use Types Packs/Day Years [...] How often do you attend chur or mu-ism services? Never 11/25/2022 Do you [...] Recorded Patient Health Questionnaire-2 Score 0 07/06/2023 [facility] [place] of Occupat ional Health - Occupational Stress [...] documented as of this encounter Care Teams Trap Operator Relationship Specialty Start Date End Date Roc Steele MD [address] [facility] 110 [place] [address] PCP - General Internal Medicine 09/28/22 Roc Steele MD [address] [facility] [address] [place] [address] PCP - ACO Reach 08/30/23 Luis Felipe Dugan DO [address] [place] [address] Referring Physician Neurology 03/07/24 Raya Holt, RN [address] [place] [address] Clinical Advocate Family Medicine 06/07/24 07/19/24 Gladis Laird LPN 112 [facility] 110 [place] [address] 07/19/24 documented as of this encounter
--- OUTSIDE RECORDS SUMMARY | 2025-01-24 14:46 | XMS_ITS | Encounter Summary ---
Author Organization [facility] Address [address] [place] [address] Care Team Providers Care Miner Pick Name Role Phone Roc Steele MD Primary Care Provider [phone] Roc Steele MD Unavailable [phone] Luis Felipe Dugan DO Unavailable [phone] Raya Holt RN Unavailable [phone] Gladis Laird LPN Unavailable Encounter Details Date Type Department Care Team (Late st Contact Info) Description 05/30/2024 Abstract [facility] [place] [facility] [address] [facility] 110 [place] [address] Roc Steele MD [address] [facility] 110 [place] [address] Social History Tobacco Use Types Packs/Day Years [...] Recorded Patient Health Questionnaire-2 Score 0 07/06/2023 [facility] [place] of Occupat ional Health - Occupational Stress [...] documented as of this encounter Care Teams Miner Pick Relationship Specialty Start Date End Date Roc Steele MD [address] [facility] 110 [place] [address] PCP - General Internal Medicine 09/28/22 Roc Steele MD [address] [facility] [address] [place] [address] PCP - ACO Reach 08/30/23 Luis Felipe Dugan DO [address] [place] [address] Referring Physician Neurology 03/07/24 Raya Holt, RN [address] [place] [address] Clinical Advocate Family Medicine 06/07/24 07/19/24 Gladis Laird LPN 112 [facility] 110 [place] [address] 07/19/24 documented as of this encounter
--- OUTSIDE RECORDS SUMMARY | 2025-01-24 14:46 | XMS_ITS | Encounter Summary ---
Author Organization [facility] Address [address] [place] [address] Care Team Providers Care Secondary History Teacher Name Role Phone Roc Steele MD Primary Care Provider [phone] Roc Steele MD Unavailable [phone] RitchieBulljulianojean-claude JORDAN Unavailable [phone] Gladis Laird LPN Unavailable Encounter Details Date Type Department Care Team (Late st Contact Info) Description 10/01/[address] [place] [facility] [address] [facility] 110 [place] [address] Roc Steele MD 112 [facility] 110 [place] [address] Social History Tobacco Use Types Packs/Day Years [...] Recorded Patient Health Questionnaire-2 Score 0 08/19/2024 [facility] of Occupat ional [...] documented as of this encounter Care Teams Secondary History Teacher Relationship Specialty Start Date End Date Roc Steele MD [address] [facility] 110 [place] [address] PCP - General Internal Medicine 09/28/22 Roc Steele MD [address] [facility] 110 [place] [address] PCP - ACO Reach 08/30/23 Luis Felipe Dugan DO [address] [place] [address] Referring Physician Neurology 03/07/24 Gladis Laird LPN 112 [facility] 110 [place] [address] 07/19/24 documented as of this encounter
--- OUTSIDE RECORDS SUMMARY | 2025-01-24 14:46 | XMS_ITS | Encounter Summary ---
Author Organization [facility] Address [address] [place] [address] Care Team Providers Care Enrollment Services Dean Name Role Phone Roc Steele MD Primary Care Provider [phone] Roc Steele MD Unavailable [phone] Luis Felipe Dugan DO Unavailable [phone] Gladis Laird LPN Unavailable Reason for Visit * Reason Comments Med Refill Encounter Details Date Type Department Care Team (Late st Contact Info) Description 01/14/2025 Refill [facility] [place] [facility] [address] [facility] 110 [place] [address] Aarti Castillo, MALT SPECIFICATIONS CONTROL ASSISTANT [address] [facility] 110 [place], [place] [address] Age-related osteoporosis without current pathological fracture Social History Tobacco Use Types Packs/Day Years [...] Recorded Patient Health Questionnaire-2 Score 0 10/16/2024 [facility] [place] of Occupat ional Health - Occupational Stress [...] as of this encounter Visit Diagnoses Diagnosis Age-related osteoporosis without current pathological fracture documented in this encounter Additional Health Concerns Assessment Noted Time PHQ-9 Depression Total Score: 0 07/06/19 24 3:00 PM EST documented as of this encounter Care Teams Enrollment Services Dean Relationship Specialty Start Date End Date Roc Steele MD [address] [facility] 110 [place] [address] PCP - General Internal Medicine 09/28/22 Roc Steele MD [address] [facility] 110 [place] [address] PCP - ACO Reach 08/30/23 Luis Felipe Dugan DO [address] [place] [address] Referring Physician Neurology 03/07/24 Gladis Laird LPN 112 [facility] 110 [place] [address] 07/19/24 documented as of this encounter
--- OUTSIDE RECORDS SUMMARY | 2025-01-24 14:46 | XMS_ITS | Encounter Summary ---
Author Organization [facility] Address [address] [place] [address] Care Team Providers Care Auto Engine Mechanic Name Role Phone Roc Steele MD Primary Care Provider [phone] Roc Steele MD Unavailable [phone] RitchieuBlljulianojean-claude JORDAN Unavailable [phone] Gladis Laird LPN Unavailable Encounter Details Date Type Department Care Team (Late st Contact Info) Description 09/18/2024 Abstract [facility] [place] [facility] [address] [facility] 110 [place] [address] Roc Steele MD 112 [facility] 110 [place] [address] Social History Tobacco Use Types Packs/Day Years [...] Recorded Patient Health Questionnaire-2 Score 0 08/19/2024 [facility] of Occupat ional Health - [...] documented as of this encounter Care Teams Auto Engine Mechanic Relationship Specialty Start Date End Date Roc Steele MD [address] [facility] [address] [place] [address] PCP - General Internal Medicine 09/28/22 Roc Steele MD [address] [facility] 110 [place] [address] PCP - ACO Reach 08/30/23 Luis Felipe Dugan DO [address] [place] [address] Referring Physician Neurology 03/07/24 Gladis Laird LPN 112 [facility] 110 [place] [address] 07/19/24 documented as of this encounter
--- OUTSIDE RECORDS SUMMARY | 2025-01-24 14:46 | XMS_ITS | Encounter Summary ---
Author Organization [facility] Address [address] [place] [address] Care Team Providers Care Advertising Account Executive Name Role Phone Roc Steele MD Unavailable [phone] Roc Steele MD Primary Care Provider [phone] Roc Steele MD Unavailable [phone] Luis Felipe Dugan DO Unavailable [phone] Raya Holt RN Unavailable [phone] Gladis Laird LPN Unavailable Encounter Details Date Type Department Care Team (Late st Contact Info) Description 12/07/2022 Abstract [facility] [place] [facility] [address] [facility] 110 [place] [address] Roc Steele MD [address] [facility] 110 [place], [place] [address] Social History Tobacco Use Types Packs/Day Years [...] and heating? Not hard at all 11/25/2022 [facility] of Occupat [...] filedocumented in this encounter Care Teams Advertising Account Executive Relationship Specialty Start Date End Date Roc Steele MD [address] [facility] 110 [place] [address] PCP - ACO Reach 09/22/22 06/29/23 Roc Steele MD [address] [facility] 110 [place] [address] PCP - General Internal Medicine 09/28/22 Roc Steele MD [address] [facility] 110 [place] [address] PCP - ACO Reach 08/30/23 Luis Felipe Dugan DO [address] [place] [address] Referring Physician Neurology 03/07/24 Raya Holt, RN [address] [place] [address] [place] [address] Clinical Advocate Family Medicine 06/07/24 07/19/24 Gladis Laird LPN 112 [facility] 110 [place] [address] 07/19/24 documented as of this encounter
--- OUTSIDE RECORDS SUMMARY | 2025-01-24 14:46 | XMS_ITS | Encounter Summary ---
Author Organization [facility] Address [address] [place] [address] Phone Care Team Providers Care Irrigation Pump Installer Name Role Phone Roc Steele MD Primary Care Provider [phone] Encounter Details Date Type Department Care Team (Late st Contact Info) Description 07/03/2024 Scanned Document [facility] [address] [place] [id number] Scanning, Generic Provider Social History Tobacco Use [...] Description 04/28/2025 1:00 PM EST Ancillary Procedure [address] [place] [address] 05/16/2025 2:00 PM EST Office Visit [address] [place] [address] Amber Hawley MD [address] [facility] 130 [place] [address] documented as of this encounter Visit Diagnoses Not on filedocumented in this encounter Care Teams Irrigation Pump Installer Relationship Specialty Start Date End Date Roc Steele MD 112 [facility] 110 [place] [address] PCP - General 10/04/22 documented as of this encounter
--- OUTSIDE RECORDS SUMMARY | 2025-01-24 14:46 | XMS_ITS | Encounter Summary ---
Author Organization [facility] Address [address] [place] [address] Care Team Providers Care Senior Data Scientist Name Role Phone Roc Steele MD Primary Care Provider [phone] Roc Steele MD Unavailable [phone] Luis Felipe Dugan DO Unavailable [phone] Raya Holt RN Unavailable [phone] Gladis Laird LPN Unavailable Encounter Details Date Type Department Care Team (Late st Contact Info) Description 07/13/2023 Abstract [facility] [place] [facility] [address] [facility] 110 [place] [address] Roc Steele MD [address] [facility] 110 [place] [address] Social History Tobacco Use Types Packs/Day Years [...] Recorded Patient Health Questionnaire-2 Score 0 07/06/2023 [facility] of Occupat ional Health - [...] of this encounter Care Teams Senior Data Scientist Relationship Specialty Start Date End Date Roc Steele MD [address] [facility] 110 [place], [place] [address] PCP - General Internal Medicine 09/28/22 Roc Steele MD [address] [facility] 110 [place], [place] [address] PCP - ACO Reach 08/30/23 Luis Felipe Dugan DO [address] [place] [address] Referring Physician Neurology 03/07/24 Raya Holt, RN [address] [place] [address] Clinical Advocate Family Medicine 06/07/24 07/19/24 Gladis Laird LPN 112 [facility] 110 [place] [address] 07/19/24 documented as of this encounter
--- OUTSIDE RECORDS SUMMARY | 2025-01-24 14:46 | XMS_ITS | Encounter Summary ---
Author Organization [facility] Address [address] [place] [address] Care Team Providers Care Water Plant Pump Operator Name Role Phone Roc Steele MD Unavailable [phone] Roc Steele MD Primary Care Provider [phone] Roc Steele MD Unavailable [phone] Luis Felipe Dugan DO Unavailable [phone] Raya Holt RN Unavailable [phone] Gladis Laird LPN Unavailable Encounter Details Date Type Department Care Team (Late st Contact Info) Description 12/25/2022 Abstract [facility] [place] [facility] 112 [facility] 170 [place] [address] Josue Mayer, PT 112 [facility] 170 [place] [address] Social History Tobacco Use Types Packs/Day Years [...] filedocumented in this encounter Care Teams Water Plant Pump Operator Relationship Specialty Start Date End Date Roc Steele MD [address] [facility] 110 [place] [address] PCP - ACO Reach 09/22/22 06/29/23 Roc Steele MD [address] [facility] 110 [place] [address] PCP - General Internal Medicine 09/28/22 Roc Steele MD [address] [facility] 110 [place] [address] PCP - ACO Reach 08/30/23 Luis Felipe Dugan DO [address] [place] [address] Referring Physician Neurology 03/07/24 Raya Holt, CARMEN [address] [place] [address] Clinical Advocate Family Medicine 06/07/24 07/19/24 Gladis Laird LPN 112 [facility] 110 [place], [place] [address] 07/19/24 documented as of this encounter
--- OUTSIDE RECORDS SUMMARY | 2025-01-24 14:46 | XMS_ITS | Encounter Summary ---
Author Organization [facility] Address [address] [place] [address] Care Team Providers Care Roll Cleaner Name Role Phone Roc Steele MD Unavailable [phone] Roc Steele MD Primary Care Provider [phone] Roc Steele MD Unavailable [phone] Luis Felipe Dugan DO Unavailable [phone] Raya Holt RN Unavailable [phone] Gladis Laird LPN Unavailable Encounter Details Date Type Department Care Team (Late st Contact Info) Description 11/23/2022 Orders Only [facility] [place] [facility] [address] [place] [address] [place] [address] A, Unknown Practice [address] [place] [address] Social History Tobacco Use Types Packs/Day Years [...] on filedocumented in this encounter Care Teams Roll Cleaner Relationship Specialty Start Date End Date Roc Steele MD [address] [facility] 110 [place] [address] PCP - ACO Reach 09/22/22 06/29/23 Roc Steele MD [address] [facility] 110 [place] [address] PCP - General Internal Medicine 09/28/22 Roc Steele MD [address] [facility] 110 [place] [address] PCP - ACO Reach 08/30/23 Luis Felipe Dugan DO [address] [place] [address] Referring Physician Neurology 03/07/24 Raya Holt, RN [address] [place] [address] Clinical Advocate Family Medicine 06/07/24 07/19/24 Gladis Laird LPN [address] [facility] 110 [place] [address] 07/19/24 documented as of this encounter
--- OUTSIDE RECORDS SUMMARY | 2025-01-24 14:46 | XMS_ITS | Encounter Summary ---
Author Organization [facility] Address [address] [place] [address] Care Team Providers Care Jet Ski Mechanic Name Role Phone Roc Steele MD Primary Care Provider [phone] Roc Steele MD Unavailable [phone] Luis Felipe Dugan DO Unavailable [phone] Raya Holt RN Unavailable [phone] Gladis Laird LPN Unavailable Encounter Details Date Type Department Care Team (Late st Contact Info) Description 05/20/2024 Abstract [facility] [place] [facility] [address] [facility] 110 [place] [address] Roc Steele MD [address] [facility] 110 [place] [address] Social History Tobacco Use Types Packs/Day Years [...] Recorded Patient Health Questionnaire-2 Score 0 07/06/2023 [facility] [place] of Occupat ional Health - Occupational Stress [...] as of this encounter Care Teams Jet Ski Mechanic Relationship Specialty Start Date End Date Roc Steele MD [address] [facility] 110 [place] [address] PCP - General Internal Medicine 09/28/22 Roc Steele MD [address] [place] [address] [place] [address] PCP - ACO Reach 08/30/23 Luis Felipe Dugan DO [address] [place] [address] Referring Physician Neurology 03/07/24 Raya Holt, RN [address] [place] [address] Clinical Advocate Family Medicine 06/07/24 07/19/24 Gladis Laird LPN 112 [facility] 110 [place] [address] 07/19/24 documented as of this encounter
--- OUTSIDE RECORDS SUMMARY | 2025-01-24 14:46 | XMS_ITS | Encounter Summary ---
Author Organization [facility] Address [address] [place] [address] Care Team Providers Care Student Outreach Coordinator Name Role Phone Roc Steele MD Primary Care Provider [phone] Roc Steele MD Unavailable [phone] Luis Felipe Dugan DO Unavailable [phone] Raya Holt RN Unavailable [phone] Gladis Laird LPN Unavailable Encounter Details Date Type Department Care Team (Late st Contact Info) Description 03/06/2024 Orders Only [facility] [address] [facility] 353 [place] [address] Aarti Castillo, DEVELOPER ADVOCATE [address] [facility] 110 [place] [address] Social History Tobacco Use Types Packs/Day [...] often do you attend chur ch or tenriism services? Never 11/25/2022 Do you [...] Recorded Patient Health Questionnaire-2 Score 0 07/06/2023 [facility] of Occupat ional Health - Occupational Stress [...] (07/28/2021 3:41 PM EDT) us Aarti Castillo DEVELOPER ADVOCATE NEUROLOGY ORDERABLES Final R esult documented in this encounter Visit Diagnoses Not on filedocumented in this encounter Additional Health Concerns Assessment Noted Time PHQ-9 Depression Total Score: 0 07/06/19 24 3:00 PM EST documented as of this encounter Care Teams Student Outreach Coordinator Relationship Specialty Start Date End Date Roc Steele MD [address] [facility] 110 [place], [place] [address] PCP - General Internal Medicine 09/28/22 Roc Steele MD [address] [facility] [address] [place], [place] [address] PCP - ACO Reach 08/30/23 Luis Felipe Dugan DO [address] [place] [address] Referring Physician Neurology 03/07/24 Raya Holt, RN [address] [place] [address] Clinical Advocate Family Medicine 06/07/24 07/19/24 Gladis Laird LPN [address] [facility] 110 [place] [address] 07/19/24 documented as of this encounter
--- OUTSIDE RECORDS SUMMARY | 2025-01-24 14:46 | XMS_ITS | Encounter Summary ---
Author Organization [facility] Address [address] [place] [address] Care Team Providers Care Crew Director Name Role Phone Roc Steele MD Primary Care Provider [phone] Roc Steele MD Unavailable [phone] RitchieBulljulianojean-claude JORDAN Unavailable [phone] Gladis Laird LPN Unavailable Encounter Details Date Type Department Care Team (Late st Contact Info) Description 08/19/2024 Abstract [facility] [place] [facility] [address] [facility] 110 [place] [address] Roc Steele MD 112 [facility] 110 [place] [address] Social History Tobacco Use Types Packs/Day Years [...] Recorded Patient Health Questionnaire-2 Score 0 08/19/2024 [facility] of Occupat [...] things Not at all 08/19/2024 11:25 AM Katie Mckeon L PN Feeling down, depressed, or hopeless [...] documented as of this encounter Care Teams Crew Director Relationship Specialty Start Date End Date Roc Steele MD [address] [facility] [address] [place] [address] PCP - General Internal Medicine 09/28/22 Roc Steele MD [address] [facility] 110 [place] [address] PCP - ACO Reach 08/30/23 Luis Felipe Dugan DO [address] [place] [address] Referring Physician Neurology 03/07/24 Gladis Laird LPN [address] [facility] 110 [place] [address] 07/19/24 documented as of this encounter
--- OUTSIDE RECORDS SUMMARY | 2025-01-24 14:46 | XMS_ITS | Encounter Summary ---
Author Organization [facility] Address [address] [place] [address] Care Team Providers Care Boat Tester Name Role Phone Roc Steele MD Unavailable [phone] Roc Steele MD Primary Care Provider [phone] Roc Steele MD Unavailable [phone] Luis Felipe Dugan DO Unavailable Raya Holt RN Unavailable [phone] Gladis Laird LPN Unavailable Encounter Details Date Type Department Care Team (Late st Contact Info) Description 10/07/2022 Orders Only [facility] [place] [facility] [address] [facility] [address] [place] [address] Aarti Castillo NP [address] [place] [address] [place], [place] [address] Social History Tobacco Use Types Packs/Day Years [...] Polysomnography (10/03/2022 9:04 AM EDT) us Aarti M [place] [facility] ORDERABLES Maggi l Result documented in this encounter Visit Diagnoses Not on filedocumented in this encounter Care Teams Boat Tester Relationship Specialty Start Date End Date Roc Steele MD [address] [facility] [address] [place] [address] PCP - ACO Reach 09/22/22 06/29/23 Roc Steele MD [address] [facility] [address] [place] [address] PCP - General Internal Medicine 09/28/22 Roc Steele MD [address] [facility] 110 [place] [address] PCP - ACO Reach 08/30/23 Luis Felipe Dugan DO [address] [place] [address] Referring Physician Neurology 03/07/24 Raya Holt, RN [address] [place] [address] Clinical Advocate Family Medicine 06/07/24 07/19/24 Gladis Laird LPN [address] [facility] 110 [place] [address] 07/19/24 documented as of this encounter
--- OUTSIDE RECORDS SUMMARY | 2025-01-24 14:46 | XMS_ITS | Encounter Summary ---
Author Organization [facility] Address [address] [place] [address] Care Team Providers Care Journeyman Wireman Name Role Phone Roc Steele MD Primary Care Provider [phone] Roc Steele MD Unavailable [phone] RitchieBulljulianojean-claude JORDAN Unavailable [phone] Gladis Laird LPN Unavailable Encounter Details Date Type Department Care Team (Late st Contact Info) Description 08/20/2024 Abstract [facility] [place] [facility] [address] [facility] 110 [place] [address] Roc Steele MD 112 [facility] 110 [place] [address] Social History Tobacco Use Types Packs/Day Years [...] Recorded Patient Health Questionnaire-2 Score 0 08/19/2024 [facility] of Occupat ional Health [...] documented as of this encounter Care Teams Journeyman Wireman Relationship Specialty Start Date End Date Roc Steele MD [address] [place] [address] [place] [address] PCP - General Internal Medicine 09/28/22 Roc Steele MD [address] [facility] [address] [place] [address] PCP - ACO Reach 08/30/23 Luis Felipe Dugan DO [address] [place] [address] Referring Physician Neurology 03/07/24 Gladis Laird LPN 112 [facility] 110 [place] [address] 07/19/24 documented as of this encounter
--- OUTSIDE RECORDS SUMMARY | 2025-01-24 14:46 | XMS_ITS | Encounter Summary ---
Author Organization [facility] Address [address] [place] [address] Care Team Providers Care Nurse Care Manager Name Role Phone Roc Steele MD Unavailable [phone] Roc Steele MD Primary Care Provider [phone] Roc Steele MD Unavailable [phone] Luis Felipe Dugan DO Unavailable [phone] Raya Holt RN Unavailable [phone] Gladis Laird LPN Unavailable Encounter Details Date Type Department Care Team (Late st Contact Info) Description 12/07/2022 Abstract [facility] [place] [facility] [address] [facility] 110 [place] [address] Roc Steele MD [address] [place] [facility] 110 [place], [place] [address] Social History Tobacco Use Types Packs/Day Years [...] and heating? Not hard at all 11/25/2022 [facility] of Occupat ional Health [...] on filedocumented in this encounter Care Teams Nurse Care Manager Relationship Specialty Start Date End Date Roc Steele MD [address] [facility] 110 [place] [address] PCP - ACO Reach 09/22/22 06/29/23 Roc Steele MD [address] [facility] 110 [place] [address] PCP - General Internal Medicine 09/28/22 Roc Steele MD [address] [facility] 110 [place] [address] PCP - ACO Reach 08/30/23 Luis Felipe Dugan DO [address] [place] [address] Referring Physician Neurology 03/07/24 Raya Holt, RN [address] [place] [address] Clinical Advocate Family Medicine 06/07/24 07/19/24 Gladis Laird LPN 112 [facility] 110 [place] [address] 07/19/24 documented as of this encounter
--- OUTSIDE RECORDS SUMMARY | 2025-01-24 14:46 | XMS_ITS | Encounter Summary ---
Author Organization [facility] Address [address] [place] [address] Care Team Providers Care Water And Sewer Systems Supervisor Name Role Phone Roc Steele MD Primary Care Provider [phone] Roc Steele MD Unavailable [phone] RitchieBulljulianojean-claude JORDAN Unavailable [phone] Gladis Laird LPN Unavailable Encounter Details Date Type Department Care Team (Late st Contact Info) Description 07/23/2024 Abstract [facility] [place] [facility] [address] [facility] 110 [place] [address] Roc Steele MD 112 [facility] 110 [place] [address] Social History Tobacco Use Types Packs/Day Years [...] documented as of this encounter Care Teams Water And Sewer Systems Supervisor Relationship Specialty Start Date End Date Roc Steele MD [address] [place] [address] [place] [address] PCP - General Internal Medicine 09/28/22 Roc Steele MD [address] [place] [address] [place] [address] PCP - ACO Reach 08/30/23 Luis Felipe Dugan DO [address] [place] [address] Referring Physician Neurology 03/07/24 Gladis Laird LPN 112 [facility] 110 [place] [address] 07/19/24 documented as of this encounter
--- OUTSIDE RECORDS SUMMARY | 2025-01-24 14:46 | XMS_ITS | Encounter Summary ---
Author Organization [facility] Address [address] [place] [address] Care Team Providers Care Saddle Stitch Operator Name Role Phone Roc Steele MD Unavailable [phone] Roc Steele MD Primary Care Provider [phone] Roc Steele MD Unavailable [phone] Luis Felipe Dugan DO Unavailable [phone] Raya Holt RN Unavailable [phone] Gladis Laird LPN Unavailable Encounter Details Date Type Department Care Team (Late st Contact Info) Description 12/07/2022 Orders Only [facility] [place] [facility] [address] [place] [address] [place] [address] A, Unknown Practice 1300 [place] [address] Social History Tobacco Use Types Packs/Day Years [...] on filedocumented in this encounter Care Teams Saddle Stitch Operator Relationship Specialty Start Date End Date Roc Steele MD [address] [facility] 110 [place] [address] PCP - ACO Reach 09/22/22 06/29/23 Roc Steele MD [address] [facility] [address] [place] [address] PCP - General Internal Medicine 09/28/22 Roc Steele MD [address] [facility] [address] [place] [address] PCP - ACO Reach 08/30/23 Luis Felipe Dugan DO [address] [place] [address] Referring Physician Neurology 03/07/24 Raya Holt, RN [address] [place] [address] Clinical Advocate Family Medicine 06/07/24 07/19/24 Gladis Laird LPN [address] [facility] 110 [place] [address] 07/19/24 documented as of this encounter
--- OUTSIDE RECORDS SUMMARY | 2025-01-24 14:46 | XMS_ITS | Encounter Summary ---
Author Organization [facility] Address [address] [place] [address] Care Team Providers Care Curriculum And Assessment Coordinator Name Role Phone Roc Steele MD Primary Care Provider [phone] Roc Steele MD Unavailable [phone] Luis Felipe Dugan DO Unavailable [phone] Gladis Laird LPN Unavailable Encounter Details Date Type Department Care Team (Late st Contact Info) Description 01/15/2025 Patient Outreach [facility] [address] [place] [address] Doris Longo LPN Social History Tobacco Use [...] Recorded Patient Health Questionnaire-2 Score 0 10/16/2024 [facility] of Occupat ional Health - [...] as of this encounter Progress Notes * Doris Longo LPN - 01/15/2025 3:43 PM EDT <January 15, 2025, 15:43 - Doris Longo LPN> Called Pernell to see how he feels she is doing in therapy at the [facility] and he states therapy is going well but she is till having issues with her bladder she does not have the catheter anymore but she is still incontinent at times but its getting better. She had a follow up with orthopedic and her left ankle is looking good. She goes back to the dr on 01/24 to have the stitches removedand possibly get placed in a boot and not a cast. She is still NWB. No dc date yet. * MERARY Pemberton - 01/15/2025 3:43 PM EDT Acknowledged. documented in this encounter Plan of Treatment Not on file documented as of this encounter Visit Diagnoses Not on filedocumented in this encounter Additional Health Concerns Assessment Noted Time PHQ-9 Depression Total Score: 0 07/06/19 24 3:00 PM EST documented as of this encounter Care Teams Curriculum And Assessment Coordinator Relationship Specialty Start Date End Date Roc Steele MD [address] [facility] 110 [place] [address] PCP - General Internal Medicine 09/28/22 Roc Steele MD [address] [facility] 110 [place] [address] PCP - ACO Reach 08/30/23 Luis Felipe Dugan DO [address] [place] [address] Referring Physician Neurology 03/07/24 Gladis Laird LPN [address] [facility] 110 [place] [address] 07/19/24 documented as of this encounter
--- OUTSIDE RECORDS SUMMARY | 2025-01-24 14:46 | XMS_ITS | Encounter Summary ---
Author Organization [facility] Address [address] [place] [address] Care Team Providers Care Manufacturing Director Name Role Phone Roc Steele MD Primary Care Provider [phone] Roc Steele MD Unavailable [phone] Luis Felipe Dugan DO Unavailable [phone] Raya Holt RN Unavailable [phone] Gladis Laird LPN Unavailable Encounter Details Date Type Department Care Team (Late st Contact Info) Description 05/17/2024 Orders Only [facility] [place] [facility] [address] [facility] [address] [place] [address] Unallocated, Noms Provider, [address] [place], [place] [address] Social History Tobacco Use Types Packs/Day Years [...] Recorded Patient Health Questionnaire-2 Score 0 07/06/2023 [facility] [place] of Occupat ional Health - Occupational Stress [...] 8:06 AM EST) us Noms Provider Unallocated ECG ORDERABLES Fin al Result documented in this encounter Visit Diagnoses Not on filedocumented in this encounter Additional Health Concerns Assessment Noted Time PHQ-9 Depression Total Score: 0 07/06/19 24 3:00 PM EST documented as of this encounter Care Teams Manufacturing Director Relationship Specialty Start Date End Date Roc Steele MD [address] [id number] PCP - General Internal Medicine 09/28/22 Roc Steele MD [address] [facility] [address] [place], [place] [address] PCP - ACO Reach 08/30/23 Luis Felipe Dugan DO [address] [place] [address] Referring Physician Neurology 03/07/24 Raya Holt, RN [address] [place], [place] [address] Clinical Advocate Family Medicine 06/07/24 07/19/24 Gladis Laird LPN [address] [facility] [address] [place] [address] 07/19/24 documented as of this encounter
--- OUTSIDE RECORDS SUMMARY | 2025-01-24 14:46 | XMS_ITS | Encounter Summary ---
Author Organization [facility] Address [address] [place] [address] Care Team Providers Care Textbook Associate Name Role Phone Roc Steele MD Primary Care Provider [phone] Roc Steele MD Unavailable [phone] Luis Felipe Dugan DO Unavailable [phone] Raya Holt RN Unavailable [phone] Gladis Laird LPN Unavailable Encounter Details Date Type Department Care Team (Late st Contact Info) Description 05/30/[address] [facility] [place] [facility] [address] [facility] 110 [place] [address] Roc Steele MD [address] [facility] [address] [place] [address] Social History Tobacco Use Types Packs/Day Years [...] Health Questionnaire-2 Score 0 07/06/2023 [facility] [place] of Occupat ional Health - Occupational [...] documented as of this encounter Care Teams Textbook Associate Relationship Specialty Start Date End Date Roc Steele MD [address] [facility] 110 [place] [address] PCP - General Internal Medicine 09/28/22 Roc Steele MD [address] [facility] [address] [place] [address] PCP - ACO Reach 08/30/23 Luis Felipe Dugan DO [address] [place] [address] Referring Physician Neurology 03/07/24 Raya Holt, RN [address] [place] [address] Clinical Advocate Family Medicine 06/07/24 07/19/24 Gladis Laird LPN 112 [facility] 110 [place] [address] 07/19/24 documented as of this encounter
--- OUTSIDE RECORDS SUMMARY | 2025-01-24 14:46 | XMS_ITS | Encounter Summary ---
Author Organization [facility] Address [address] [place] [address] Care Team Providers Care Wood Ski Maker Name Role Phone Roc Steele MD Primary Care Provider [phone] Roc Steele MD Unavailable [phone] RitchieBulljulianojean-claude JORDAN Unavailable [phone] Gladis Laird LPN Unavailable Encounter Details Date Type Department Care Team (Late st Contact Info) Description 08/20/2024 Abstract [facility] [place] [facility] [address] [facility] 110 [place] [address] Roc Steele MD 112 [facility] 110 [place] [address] Social History Tobacco Use Types Packs/Day Years [...] often do you attend chur ch or scientology services? Never 11/25/2022 Do you [...] as of this encounter Care Teams Wood Ski Maker Relationship Specialty Start Date End Date Roc Steele MD [address] [facility] [address] [place] [address] PCP - General Internal Medicine 09/28/22 Roc Steele MD [address] [facility] [address] [place] [address] PCP - ACO Reach 08/30/23 Luis Felipe Dugan DO [address] [place] [address] Referring Physician Neurology 03/07/24 Gladis Laird LPN 112 [facility] 110 [place] [address] 07/19/24 documented as of this encounter
--- OUTSIDE RECORDS SUMMARY | 2025-01-24 14:46 | XMS_ITS | Encounter Summary ---
Author Organization [facility] Address [address] [place] [address] Care Team Providers Care Dry Ice Maker Name Role Phone Roc Steele MD Primary Care Provider [phone] Roc Steele MD Unavailable [phone] Luis Felipe Dugan DO Unavailable [phone] Raya Holt RN Unavailable [phone] Gladis Laird LPN Unavailable Encounter Details Date Type Department Care Team (Late st Contact Info) Description 05/21/2024 Abstract [facility] [place] [facility] [address] [facility] 110 [place] [address] Roc Steele MD [address] [facility] [address] [place] [address] Social History Tobacco Use Types Packs/Day Years [...] Recorded Patient Health Questionnaire-2 Score 0 07/06/2023 [facility] of Occupat ional Health - Occupational Stress [...] documented as of this encounter Care Teams Dry Ice Maker Relationship Specialty Start Date End Date oRc Steele MD [address] [facility] 110 [place] [address] PCP - General Internal Medicine 09/28/22 Roc Steele MD [address] [place] [address] PCP - ACO Reach 08/30/23 Luis Felipe Dugan DO [address] [place] [address] Referring Physician Neurology 03/07/24 Raya Holt, RN [address] [place] [address] Clinical Advocate Family Medicine 06/07/24 07/19/24 Gladis Laird LPN 112 [facility] 110 [place] [address] 07/19/24 documented as of this encounter
--- OUTSIDE RECORDS SUMMARY | 2025-01-24 14:46 | XMS_ITS | Encounter Summary ---
Author Organization [facility] Address [address] [place] [address] Care Team Providers Care Tennis Player Name Role Phone Roc Steele MD Primary Care Provider [phone] Roc Steele MD Unavailable [phone] Luis Felipe Dugan DO Unavailable [phone] Raya Holt RN Unavailable [phone] Gladis Laird LPN Unavailable Encounter Details Date Type Department Care Team (Late st Contact Info) Description 06/04/2024 Abstract [facility] [place] [facility] [address] [facility] 110 [place] [address] Roc Steele MD [address] [facility] 110 [place] [address] Social History Tobacco Use Types Packs/Day Years [...] How often do you attend chur or spiritism services? Never 11/25/2022 Do you [...] Questionnaire-2 Score 0 07/06/2023 [facility] [place] of Occupat ional Health - Occupational Stress [...] documented as of this encounter Care Teams Tennis Player Relationship Specialty Start Date End Date Roc Steele MD [address] [facility] 110 [place] [address] PCP - General Internal Medicine 09/28/22 Roc Steele MD [address] [place] [address] [place] [address] PCP - ACO Reach 08/30/23 Luis Felipe Dugan DO [address] [place] [address] Referring Physician Neurology 03/07/24 Raya Holt, RN [address] [place] [address] Clinical Advocate Family Medicine 06/07/24 07/19/24 Gladis Laird LPN 112 [facility] 110 [place] [address] 07/19/24 documented as of this encounter
--- OUTSIDE RECORDS SUMMARY | 2025-01-24 14:46 | XMS_ITS | Encounter Summary ---
Author Organization [facility] Address [address] [place] [address] Care Team Providers Care Inpatient Nursing Aide Name Role Phone Roc Steele MD Primary Care Provider [phone] Roc Steele MD Unavailable [phone] RitchieBulljulianojean-claude JORDAN Unavailable [phone] Gladis Laird LPN Unavailable Encounter Details Date Type Department Care Team (Late st Contact Info) Description 08/07/2024 Abstract [facility] [place] [facility] [address] [facility] 110 [place] [address] Roc Steele MD 112 [facility] 110 [place] [address] Social History Tobacco Use Types Packs/Day Years [...] often do you attend chur ch or congregational services? Never 11/25/2022 Do you [...] documented as of this encounter Care Teams Inpatient Nursing Aide Relationship Specialty Start Date End Date Roc Steele MD [address] [place] [address] [place] [address] PCP - General Internal Medicine 09/28/22 Roc Steele MD [address] [facility] [address] [place] [address] PCP - ACO Reach 08/30/23 Luis Felipe Dugan DO [address] [place] [address] Referring Physician Neurology 03/07/24 Gladis Laird LPN 112 [facility] 110 [place] [address] 07/19/24 documented as of this encounter
--- OUTSIDE RECORDS SUMMARY | 2025-01-24 14:46 | XMS_ITS | Encounter Summary ---
Author Organization [facility] Address [address] [place] [address] Care Team Providers Care Switch Coupler Name Role Phone Roc Steele MD Primary Care Provider [phone] Roc Steele MD Unavailable [phone] RitchieBulljulianojean-claude JORDAN Unavailable [phone] Gladis Laird LPN Unavailable Encounter Details Date Type Department Care Team (Late st Contact Info) Description 07/23/2024 Abstract [facility] [place] [facility] [address] [facility] 110 [place] [address] Roc Steele MD 112 [facility] 110 [place] [address] Social History Tobacco Use Types Packs/Day Years [...] often do you attend chur ch or adventist services? Never 11/25/2022 Do you belong to [...] Recorded Patient Health Questionnaire-2 Score 0 07/11/2024 [facility] of Occupat ional Health [...] as of this encounter Care Teams Switch Coupler Relationship Specialty Start Date End Date Roc Steele MD [address] [place] [address] [place] [address] PCP - General Internal Medicine 09/28/22 Roc Steele MD [address] [place] [address] [place] [address] PCP - ACO Reach 08/30/23 Luis Felipe Dugan DO [address] [place] [address] Referring Physician Neurology 03/07/24 Gladis Laird LPN 112 [facility] 110 [place] [address] 07/19/24 documented as of this encounter
--- OUTSIDE RECORDS SUMMARY | 2025-01-24 14:46 | XMS_ITS | Encounter Summary ---
Author Organization [facility] Address [address] [place] [address] Care Team Providers Care Twist Tester Name Role Phone Roc Steele MD Unavailable [phone] Roc Steele MD Primary Care Provider Roc Steele MD Unavailable [phone] Luis Felipe Dugan DO Unavailable Raya Holt RN Unavailable [phone] Gladis Laird LPN Unavailable Encounter Details Date Type Department Care Team (Late st Contact Info) Description 11/14/2022 Orders Only [facility] [place] [facility] [address] [place] [address] [place] [address] Aarti Castillo NP [address] [place] [place], [place] [id number] Social History Tobacco Use Types Packs/Day Years [...] (11/04/2022 8:25 AM EDT) us Aarti M [facility] ORDERABLES Maggi l Result documented in this encounter Visit Diagnoses Not on filedocumented in this encounter Care Teams Twist Tester Relationship Specialty Start Date End Date Roc Steele MD [address] [place] [address] [place] [address] PCP - ACO Reach 09/22/22 06/29/23 Roc Steele MD [address] [place] [address] [place] [address] PCP - General Internal Medicine 09/28/22 Roc Steele MD [address] [facility] 110 [place] [address] PCP - ACO Reach 08/30/23 Luis Felipe Dugan DO [address] [place] [address] Referring Physician Neurology 03/07/24 Raya Holt, RN [address] [place] [address] Clinical Advocate Family Medicine 06/07/24 07/19/24 Gladis Laird LPN [address] [facility] 110 [place] [address] 07/19/24 documented as of this encounter
--- OUTSIDE RECORDS SUMMARY | 2025-01-24 14:46 | XMS_ITS | Encounter Summary ---
Author Organization [facility] Address [address] [place] [address] Care Team Providers Care Fabric Inspector Name Role Phone Roc Steele MD Primary Care Provider [phone] Roc Steele MD Unavailable [phone] Luis Felipe Dugan DO Unavailable [phone] Raya Holt RN Unavailable [phone] Gladis Laird LPN Unavailable Encounter Details Date Type Department Care Team (Late st Contact Info) Description 05/16/2024 Abstract [facility] [place] [facility] [address] [facility] 110 [place] [address] Roc Steele MD [address] [facility] 110 [place] [address] Social History Tobacco Use Types Packs/Day Years [...] Recorded Patient Health Questionnaire-2 Score 0 07/06/2023 [facility] [place] of Occupat ional Health - Occupational Stress [...] documented as of this encounter Care Teams Fabric Inspector Relationship Specialty Start Date End Date Roc Steele MD [address] [facility] 110 [place] [address] PCP - General Internal Medicine 09/28/22 Roc Steele MD [address] [place] [address] [place] [address] PCP - ACO Reach 08/30/23 Luis Felipe Dugan DO [address] [place] [address] Referring Physician Neurology 03/07/24 Raya Holt, RN [address] [place] [address] Clinical Advocate Family Medicine 06/07/24 07/19/24 Gladis Laird LPN 112 [facility] 110 [place] [address] 07/19/24 documented as of this encounter
--- OUTSIDE RECORDS SUMMARY | 2025-01-24 14:46 | XMS_ITS | Encounter Summary ---
Author Organization [facility] Address [address] [place] [address] Care Team Providers Care Scientific Editor Name Role Phone Roc Steele MD Primary Care Provider [phone] Roc Steele MD Unavailable [phone] Luis Felipe Dugan DO Unavailable [phone] Gladis Laird LPN Unavailable Encounter Details Date Type Department Care Team (Late st Contact Info) Description 01/23/2025 Clinisync Result Encounter [facility] External Department Unsolicited [...] Patient Health Questionnaire-2 Score 0 10/16/2024 [facility] Questionnaire Answer Date [...] Name Priority Date/Time Associated Diagnosis Comments XR ANKLE LT MIN 3V 01/23/2025 1: 46 PM EDT documented in this encounter Results * XR ANKLE LT MIN 3V (01/23/2025 1:46 PM EDT) Anatomical Region Laterality Modality Other 01/23/2025 1:46 PM EDT Narrative 01/23/2025 1:49 PM EDT The [address] [address] XRay Report Signed Patient: USHA WALKER MR#: [id number] : 1945 Acct:[id number] Age/Sex: 79 / F ADM Date: 01/23/25 Loc: RAD Attending Dr: Kaden Zepeda D.P.M. Ordering Physician: Kaden Zepeda D.P.M. Date of Service: 01/23/25 Procedure(s): XR ankle LT min 3V Accession Number(s): [id number] cc: ROC STEELE ; Kaden Zepeda D.P.M. The [address] [address] Patient Name: USHA WALKER MRN: [id number] date: 1945 Sex: F Assigned Patient Location: [facility] Current Patient Location: [facility] Accession/Order Number: [id number] Exam Date: 01/23/2025 13:15 Report Date: 01/23/2025 13:46 At the request of: KADEN ZEPEDA DPRen Procedure: XR ankle LT min 3V LEFT ANKLE - 3 views CLINICAL HISTORY: Displaced Bimalleolar Fracture Left Lower Leg COMPARISON: Left ankle 12/27/2024 FINDINGS: Soft tissue swelling and surgical delfin present. Hardware is present involving the distal tibia and fibula without evidence of hardware complication. Fractures are grossly unchanged alignment and healing. XR/XR ankle LT min 3V IMPRESSION: NO HARDWARE COMPLICATION. Impression dictated by: Jayce De La Garza Jr., D.O. 01/23/2025 1:46 PM Dictation Location: [place] [address] Electronically authenticated by: [id number] Y Date: 01/23/2025 13:46 Dictated By: Jayce De La Garza M.D. Signed By: 01/23/25 1349 DD/ 1346 TD/TT: Trade Promotion Analyst: Procedure Note Radiology, Radiologist, MD - 01/23/2025 The [place] [id number] XRay Report Signed Patient: USHA WALKER KMR#: [id number] : 1945cct:[id number] Age/Sex: 79 / FADM Date: 01/23/25 Loc: RAD Attending Dr: Kaden Zepeda D.P.M. Ordering Physician: Kaden Zepeda D.P.M. Date of Service: 01/23/25 Procedure(s): XR ankle LT min 3V Accession Number(s): [id number] cc: ROC STEELE ; Kaden Zepeda D.P.M. The [place] [id number] Patient Name: USHA WALKER MRN: [id number] date: 1945 Sex: F Assigned Patient Location: [facility] Current Patient Location: [facility] Accession/Order Number: [id number] Exam Date: 01/23/2025 13:15 Report Date: 01/23/2025 13:46 At the request of: KADEN ZEPEDA DPRen Procedure: XR ankle LT min 3V LEFT ANKLE - 3 views CLINICAL HISTORY: Displaced Bimalleolar Fracture Left Lower Leg COMPARISON: Left ankle 12/27/2024 FINDINGS: Soft tissue swelling and surgical delfin present. Hardware is present involving the distal tibia and fibula without evidence of hardware complication. Fractures are grossly unchanged alignment and healing. XR/XR ankle LT min 3V IMPRESSION: NO HARDWARE COMPLICATION. Impression dictated by: Jayce De La Garza Jr., D.O. 01/23/2025 1:46 PM Dictation Location: [place] [address] Electronically authenticated by: [id number] Y Date: 3:46 Dictated By: Jayce De La Garza M.D. Signed By:01/23/25 1349 DD/ 1346 TD/TT: Trade Promotion Analyst: Generic External Data Provider [facility] Final Result documented in this encounter Visit Diagnoses Not on filedocumented in this encounter Additional Health Concerns Assessment Noted Time PHQ-9 Depression Total Score: 0 07/06/19 24 3:00 PM EST documented as of this encounter Care Teams Scientific Editor Relationship Specialty Start Date End Date Roc Steele MD [address] [facility] 110 [place] [address] PCP - General Internal Medicine 09/28/22 Roc Steele MD [address] [facility] 110 [place] [address] PCP - ACO Reach 08/30/23 Luis Felipe Dugan DO [address] [place] [address] Referring Physician Neurology 03/07/24 Gladis Laird LPN 112 [facility] 110 [place], [place] [address] 07/19/24 documented as of this encounter
--- OUTSIDE RECORDS SUMMARY | 2025-01-24 14:46 | XMS_ITS | Encounter Summary ---
Author Organization [facility] Address [address] [place] [address] Care Team Providers Care Manager Chemistry Name Role Phone Roc Steele MD Primary Care Provider [phone] Roc Steele MD Unavailable [phone] RitchieBulljulianojean-claude JORDAN Unavailable [phone] Gladis Laird LPN Unavailable Encounter Details Date Type Department Care Team (Late st Contact Info) Description 07/24/2024 Abstract [facility] [place] [facility] [address] [facility] 110 [place] [address] Roc Steele MD 112 [facility] 110 [place] [address] Social History Tobacco Use Types Packs/Day Years [...] often do you attend chur ch or anglican services? Never 11/25/2022 Do you [...] Recorded Patient Health Questionnaire-2 Score 0 07/11/2024 [facility] of Occupat ional [...] as of this encounter Care Teams Manager Chemistry Relationship Specialty Start Date End Date Roc Steele MD [address] [facility] [address] [place] [address] PCP - General Internal Medicine 09/28/22 Roc Steele MD [address] [facility] [address] [place] [address] PCP - ACO Reach 08/30/23 Luis Felipe Dugan DO [address] [place] [address] Referring Physician Neurology 03/07/24 Gladis Laird LPN 112 [facility] 110 [place] [address] 07/19/24 documented as of this encounter
--- OUTSIDE RECORDS SUMMARY | 2025-01-24 14:46 | XMS_ITS | Encounter Summary ---
Author Organization [facility] Address [address] [place] [address] Care Team Providers Care Wireless Cellular Technician Name Role Phone Roc Steele MD Unavailable [phone] Roc Steele MD Primary Care Provider [phone] Roc Steele MD Unavailable [phone] Luis Felipe Dugan DO Unavailable [phone] Raya Holt RN Unavailable [phone] Gladis Laird LPN Unavailable Encounter Details Date Type Department Care Team (Late st Contact Info) Description 12/02/2022 Orders Only [facility] [place] [facility] [address] [place] [address] [place] [address] A, Unknown Practice [address] [place] [address] Social History Tobacco Use Types Packs/Day Years [...] Not hard at all 11/25/2022 [facility] of Occupat ional Health [...] on filedocumented in this encounter Care Teams Wireless Cellular Technician Relationship Specialty Start Date End Date Roc Steele MD [address] [facility] 110 [place] [address] PCP - ACO Reach 09/22/22 06/29/23 Roc Steele MD [address] [facility] 110 [place] [address] PCP - General Internal Medicine 09/28/22 Roc Steele MD [address] [facility] 110 [place] [address] PCP - ACO Reach 08/30/23 Luis Felipe Dugan DO [address] [place] [address] Referring Physician Neurology 03/07/24 Raya Holt, CARMEN [address] [place] [address] Clinical Advocate Family Medicine 06/07/24 07/19/24 Gladis Laird LPN [address] [facility] 110 [place] [address] 07/19/24 documented as of this encounter
--- OUTSIDE RECORDS SUMMARY | 2025-01-24 14:46 | XMS_ITS | Clinical Summary ---
Author Organization [facility] Address [address] [place] [address] Care Team Providers Care Machine Trimmer Name Role Phone Roc Steele MD Primary Care Provider [phone] Roc Steele MD Unavailable [phone] Luis Felipe Dugan DO Unavailable Gladis Laird [...] day as needed for anxiety 60 tablet 024 Active furosemide (Lasix) 20 MG tabletIndications :Cardiomegaly,Chr onic congestive heart failure, unspecified heart failure type (HCC) Take 1 tablet (20 mg) by mouth Daily 90 tablet 3 025 2025 Active albuterol HFA (Ventolin HFA) 90 mcg/act inhalerIndication s:SOB (shortness of breath),Chronic cough Inhale 2 puffs every 4 (four) hours if needed for wheezing or shortness of breath (cough) 54 g 3 025 2025 Active fexofenadine (Radha) 180 MG tabletIndications :Seasonal allergic rhinitis, unspecified trigger Take 1 tablet (180 mg) by mouth Daily as needed (alleriges) 90 tablet 3 025 2025 Active pantoprazole (ProtoNix) 40 MG EC tabletIndications :Gastroesophageal reflux disease with esophagitis without hemorrhage TAKE 1 TABLET BY MOUTH ONCE DAILY 90 tablet 3 025 Active zolpidem (Ambien) 10 MG tabletIndications :Primary insomnia TAKE 1 TABLET BY MOUTH AT BEDTIME 90 tablet 025 Active gabapentin (Neurontin) 300 MG capsuleIndication s:Acute low back pain without sciatica, unspecified back pain laterality Take 1 capsule (300 mg) by mouth in the morning and 1 capsule (300 mg) before bedtime. 200 capsule 3 025 Active tiZANidine (Zanaflex) 4 MG tabletIndications :Primary insomnia TAKE 1 TABLET BY MOUTH EVERY 8 HOURS NEEDED 270 tablet 025 Active meloxicam (Mobic) 15 MG tabletIndications :Primary osteoarthritis involving multiple joints TAKE 1 TABLET BY MOUTH ONCE DAILY 90 tablet 3 025 Active metoprolol succinate XL (Toprol-XL) 50 MG 24 hr tabletIndications :Benign essential hypertension TAKE 1 TABLET BY MOUTH IN THE MORNING AND 1 TABLET BY MOUTH BEFORE BEDTIME 180 tablet 3 025 Active nortriptyline (Pamelor) 10 MG capsuleIndication s:Primary insomnia,Anxiety TAKE 3 CAPSULES BY MOUTH AT BEDTIME ONCE DAILY 270 capsule 3 025 Active simvastatin (Zocor) 10 MG tabletIndications :Hyperlipidemia, unspecified hyperlipidemia type TAKE 1 TABLET BY MOUTH ONCE DAILY 90 tablet 3 025 Active Prolia 60 MG/ML solution prefilled syringeIndication s:Age-related osteoporosis without current pathological fracture INJECT 60MG SUBCUTANEOUSLY ONCE DIRECTED 1 mL 025 Active denosumab (Prolia) 60 MG/ML solution prefilled syringeIndication s:Age-related osteoporosis without current pathological fracture Inject 1 mL (60 mg) under the skin 1 (one) time for 1 dose 1 mL 025 2024 Discontinued Active Problems Problem Noted Date Diagnosed [...] Encounters Date Type Department Care Team Description 01/23/2025 Clinisync Result Encounter [facility] External Department Unsolicited Provider, Generic External Data 01/15/2025 Patient Outreach [facility] [address] [place] [address] Doris Longo LPN 01/14/2025 [facility] [address] [place] [address] [place] [address] Aarti Castillo, SYRUP MACHINE LABORER Age-related osteoporosis without current pathological fracture 01/08/2025 Patient Outreach [place] [address] [place] [address] Doris Longo LPN 01/01/[address] [facility] [address] [place] [address] Doris Longo LPN 12/31/2024 Abstract [facility] [place] [facility] [address] [place] [address] [place] [address] Roc Steele MD 12/03/2024 Results Follow-Up [facility] [place] [facility] [address] [place] [address] [place] [address] MR LUMBAR SPINE WO CON 11/18/2024 Abstract [facility] [place] [facility] [address] [place] [address] [place] [address] Roc Steele MD 10/29/2024 Patient Outreach [place] [address] [place] [address] Gladis Laird LPN from Last 3 Months Immunizations Immunization Administration [...] 0 10/16/2024 [facility] of Occupat ional [facility] - Occupational Stress Questionnaire Answer Date Recorded [...] 10/16/2024 11:33 AM EDT Plan of Treatment Health Maintenance Due Date Last Done Comments Influenza Vaccine (#1) 2024 4, 03/01/2023, 03/23/2022, Additional history exists Colonoscopy Discontinued 10/31/2012 Colorectal Cancer Screening Discontinued Pneumococcal Vaccine: 65+ Years Completed 5, 12/11/2013 CT Colonography Discontinued FIT-DNA Discontinued FIT Discontinued FOBT Discontinued Sigmoidoscopy Discontinued Procedures Procedure Name Priority Date/Time Associated Diagnosis Comments XR ANKLE LT MIN 3V 01/23/2025 1: 46 PM EDT COLONOSCOPY Routine 10/31/2012 12:00 PM EDT from Last 3 Months or Most Recently Relevant to Health Maintenance Results * XR ANKLE LT MIN 3V (01/23/2025 1:46 PM EDT) Anatomical Region Laterality Modality Other 01/23/2025 1:46 PM EDT Narrative 01/23/2025 1:49 [place] [address] XRay Report Signed Patient: USHA WALKER MR#: [id number] : 1945 Acct:[id number] Age/Sex: 79 / F ADM Date: 01/23/25 Loc: RAD Attending Dr: Kelly Zepeda D.P.M. Ordering Physician: Kelly Zepeda D.P.M. Date of Service: 01/23/25 Procedure(s): XR ankle LT min 3V Accession Number(s): [id number] cc: ROC STEELE ; Kelly Zepeda D.P.M. The [place] [address] Patient Name: USHA WALKER MRN: [id number] date: 1945 Sex: F Assigned Patient Location: RAD Current Patient Location: RAD Accession/Order Number: [id number] Exam Date: 01/23/2025 13:15 Report Date: 01/23/2025 13:46 At the request of: KELLY ZEPEDA DPRen Procedure: XR ankle LT min [...] Jr., D.O. 01/23/2025 1:46 PM Dictation Location: [place] [address] Electronically authenticated by: [id number] Y Date: 01/23/2025 13:46 Dictated By: Jayce De La Garza M.D. Signed By: 01/23/25 1349 DD/ 1346 TD/TT: Sanitation Worker Cleaning Equipment: Procedure Note Radiology, Radiologist, MD - 01/23/2025 [place] [address] XRay Report Signed Patient: USHA WALKER KMR#: [id number] : 1945cct:[id number] Age/Sex: 79 / FADM Date: 01/23/25 Loc: RAD Attending Dr: Kelly Zepeda D.P.M. Ordering Physician: Kelly Zepeda D.P.M. Date of Service: 01/23/25 Procedure(s): XR ankle LT min 3V Accession Number(s): [id number] cc: ROC STEELE ; Kelly Zepeda D.P.M. [address] [address] Patient Name: USHA WALKER MRN: [id number] date: 1945 Sex: F Assigned Patient Location: [facility] Current Patient Location: [facility] Accession/Order Number: [id number] Exam Date: 01/23/2025 13:15 Report Date: 01/23/2025 13:46 At the request of: KELLY ZEPEDA DPRen Procedure: XR ankle LT min [...] dictated by: Jayce De La Garza Jr., D.OKirti 01/23/2025 1:46 PM Dictation Location: [place] [address] Electronically authenticated by: [id number] Y Date: 3:46 Dictated By: Jayce De La Garza M.D. Signed By:01/23/25 1349 DD/ 1346 TD/TT: Sanitation Worker Cleaning Equipment: us Generic External Data Provider [facility] Final Result * Colonoscopy (10/31/2012 12:00 PM EDT) Anatomical Region Laterality Modality Endoscopy 10/31/2012 12:0 0 PM EDT Narrative 10/31/2012 12:00 PM EDT PERFORMED AT [facility] LOCATION:[id number] DIVERTICULOSIS Procedure Note CONVERSION, GENERIC - 09/15/2022 PERFORMED AT [facility] LOCATION:[id number] DIVERTICULOSIS us Roc Steele MD ENDOSCOPY PROCEDURE ORDERABLES Final Result from Last 3 Months or Most Recently Relevant to Health Maintenance Insurance [facility] MEDICARE Care Teams Machine Trimmer Relationship Specialty Start Date End Date Roc Steele MD [address] [facility] [address] [place] [address] PCP - General Internal Medicine 09/28/22 Roc Steele MD [address] [facility] [address] [place] [address] PCP - ACO Reach 08/30/23 Luis Felipe Dugan DO [address] [place] [address] Referring Physician Neurology 03/07/24 Gladis Laird LPN [address] [facility] [address] [place] [address] 07/19/24
--- OUTSIDE RECORDS SUMMARY | 2025-01-24 14:46 | XMS_ITS | Encounter Summary ---
Author Organization [facility] Address [address] [place] [address] Care Team Providers Care Bottom Precipitator Operator Name Role Phone Roc Steele MD Primary Care Provider [phone] Roc Steele MD Unavailable [phone] Luis Felipe Dugan DO Unavailable [phone] Raya Holt RN Unavailable [phone] Gladis Laird LPN Unavailable Encounter Details Date Type Department Care Team (Late st Contact Info) Description 10/03/2023 Abstract [facility] [facility] [address] [facility] [address] [place] [address] Roc Steele MD [address] [facility] [address] [place] [address] Social History Tobacco Use Types Packs/Day Years [...] How often do you attend chur or moravian services? Never 11/25/2022 Do you belong to any clubs o r organizations such as faith groups, unions, fraternal or athletic groups, or [...] documented as of this encounter Care Teams Bottom Precipitator Operator Relationship Specialty Start Date End Date Roc Steele MD [address] [facility] [address] [place], [place] [id number] PCP - General Internal Medicine 09/28/22 Roc Steele MD [address] [facility] [address] [place], [place] [id number] PCP - ACO Reach 08/30/23 Luis Felipe Dugan DO [address] [place] [address] Referring Physician Neurology 03/07/24 Raya Holt, RN [address] [place] [address] Clinical Advocate Family Medicine 06/07/24 07/19/24 Gladis Laird LPN 112 [facility] 110 [place] [address] 07/19/24 documented as of this encounter
--- OUTSIDE RECORDS SUMMARY | 2025-01-24 14:47 | XMS_ITS | Clinical Summary ---
Author Organization [facility] Address [address] [place] [address] Phone Care Team Providers Care Crater And Packer Name Role Phone Roc Steele MD Primary Care Provider [phone] Allergies Active Allergy Reactions Criticality Noted Date Comments Moxifloxacin Angioedema 07/15/2024 Ciprofloxacin Unknown 07/15/2024 Sulfa (Sulfonamide Antibiotics) Unknown 06/29 Medications HYDROcodone-acetami nophen (Pateros) 5-325 mg tablet Take 1 tablet by [...] as needed at bedtime for anxiety. Active seuiuqxyquho-Lr-kpn n-minerals tablet Take 1 tablet by mouth [...] 07/15/2024 Body mass index (BMI) 40.0-44.9, adult Primary hypertension 07/15/2024 Carotid stenosis 07/15/2024 Paroxysmal supraventricular tachycardia 07/16/19 25 Palpitations 07/15/2024 Gastroesophageal reflux disease without esophagi tis 07/15/2024 Mixed hyperlipidemia 07/15/2024 CKD (chronic kidney disease) 07/15/2024 Abnormal EKG 07/15/2024 Chest discomfort 07/15/2024 Lightheadedness 07/15/2024 Encounters Date Type Department Care Team Description 11/20/2024 Travel 2024 2:15 PM EDT Office Visit [address] [phone] Rc Kern MD Encounter to discuss test results (Primary Dx); Uses roller walker; Palpitations; Mixed hyperlipidemia; Chest discomfort; CARO on CPAP; Paroxysmal supraventricular tachycardia; Never smoked cigarettes; Body mass index (BMI) 40.0-44.9, adult ([facility]) 2024 Travel from Last 3 Months Family [...] 04/28/2025 1:00 PM EST Ancillary Procedure [address] [phone] 05/16/2025 2:00 PM EST Office Visit [address] [phone] Rc Kern MD [address] [facility] 130 [place] [address] Health Maintenance Due Date Last Done Comments Hepatitis C Screening 1963 CKD: Urine Protein Screening 1965 DTaP/Tdap/Td Vaccines (1 - Tdap) 1968 Creatinine Level 01/29/2021 01/30/2020, 01/20/2020 Diabetes Screening 01/29/2021 01/30/2020, 01/20/2020 Potassium Level 01/29/2021 01/30/2020, 01/20/2020 RSV High Risk: (Elderly (60+) or Population) (1 - 1-dose 75+ series) 2021 Medicare Annual Wellness Visit (AWV) 07/06/2024 07/06/2023, 06/29/2022, 10/14/2020, Additional history exists COVID-19 Vaccine ( season) 2024 06/09/2023, 03/31/2022 Influenza Vaccine (#1) 2024 , 03/01/2023, 03/23/2022, [...] Sigmoidoscopy Discontinued Medical Devices Implanted Type Area Help Desk Operator Device Identifier Shelf Expiration Date Model / Serial / Lot Screw, Low Profile Hex, 6.5 X 15 Mm Case [id number] Implanted:Qty: 1 on 01/29/2020 by Micah Bird MD Implant Right: Hip [employer] 06/30/2023 [id number] / / 5MM Description:Converted from [facility]. Please see archived information for full log information. Screw, Low Profile Hex, 6.5 X 25 Mm Case [id number] Implanted:Qty: 1 on 01/29/2020 by Micah Bird MD Implant Right: Hip [employer] 06/01/2024 [id number] / / [id number] Description:Converted from [facility]. Please see archived information for full log information. Head, Femur V40 36mm +2.5mm [employer] Delta Case [id number] Implanted:Qty: 1 on 01/29/2020 by Micah Bird MD Joint Right: Hip [employer] 11/29/2024 [id number] / / [id number] Description:Converted from [facility]. Please see archived information for full log information. Stem, Femur 132d Sz 5 Accolade Ii Case [id number] Implanted:Qty: 1 on 01/29/2020 by Micah Bird MD Joint Right: Hip [employer] 09/29/2024 [id number] / / [id number] Description:Converted from [facility]. Please see archived information for full log information. Shell, Trident Ii, Clusterhole, Shel[place] 52e Case [id number] Implanted:Qty: 1 on 01/29/2020 by Micah Bird MD Joint Right: Hip [employer] 06/30/2023 [id number] / / [id number] Description:Converted from [facility]. Please see archived information for full log information. Liners, Poly 36 X 10 D Trid Crossfire E Case [id number] Implanted:Qty: 1 on 01/29/2020 by Micah Bird MD Joint Right: Hip [employer] 10/30/2023 [id number] / / [id number] Description:Converted from [facility]. Please see archived information [...] Narrative SYNGO - 09/18/2024 6:10 PM EDT [address], [address] [place] [address] TRANSTHORACIC ECHOCARDIOGRAM REPORT Patient Name: USHA Deal Physician: [id number] David Castle MD, [facility] Study Date: 09/18/2024 Ordering Provider: [id number] RC KERN MRN/PID: [id number] Fellow: Nurse: Date of /Age: 7 1945 Prepress Technician: Viry Quigley years RDCS, RVT Gender Assigned at F Additional Staff: : Height: 162.56 cm Admit Date: Weight: 122.02 kg Admission Status: Outpatient BSA / BMI: 2.22 m2 / 46.17 Department Location: [facility] Heart kg/m2 [place] Blood Pressure: 124 /86 mmHg Study Type: TRANSTHORACIC ECHO (TTE) COMPLETE Diagnosis/ICD: Supraventricular tachycardia-I47.1; Abnormal electrocardiogram [ECG] [EKG]-R94.31; Palpitations-R00.2 Indication: Edema, HTN, Hyperlipidemia, Carotid Stenosis, CARO, CKD-Stage III, Morbid Obesity CPT Codes: Echo Complete w Full Doppler-[id number] Study Detail: The following Echo studies were [...] (0.6-0.9m/s) AORTA: Asc Ao Diam 2.66 cm [id number] David Castle MD, [facility] Electronically signed on 09/18/2024 at 6:10:05 PM Final Procedure Note David Castle MD - 09/18/[address], Suite [facility] [place] [address] TRANSTHORACIC ECHOCARDIOGRAM REPORT Patient Name: USHA Deal Physician: [id number] Castle MD,FACC Study Date: 09/18/2024 Ordering Provider: JO KERN MRN/PID: [id number] Fellow: Nurse: Date of /Age: 7 1945 Prepress Technician: David ely RDCS, RVT Gender Assigned at F Additional Staff: : Height: 162.56 cm Admit Date: Weight: 122.02 kg Admission Status: Outpatient BSA / BMI: 2.22 m2 / 46.17 [facility] [place] Blood Pressure: 124 /86 mmHg Study Type: TRANSTHORACIC ECHO (TTE) COMPLETE Diagnosis/ICD: Supraventricular tachycardia-I47.1; Abnormalelectrocardiogram [ECG] [EKG]-R94.31; Palpitations-R00.2 Indication: Edema, HTN, Hyperlipidemia, Carotid Stenosis, CARO,CKD-Stage III, Morbid Obesity CPT Codes: Echo Complete w Full Doppler-[id number] Study Detail: The following Echo studies were [...] (0.6-0.9m/s) AORTA: Asc Ao Diam 2.66 cm [id number] David Castle MD, FACC Electronically signed on 09/18/2024 at 6:10:05 PM Final us Rc Kern MD CV ECHO PROCEDURES Final Result SYNGO * (ABNORMAL) Basic Metabolic Panel (01/30/2020 5:25 AM EDT) Glucose 128(H) 74 - 99 mg/dL [facility] Sodium 137 136 - 145 mmol/L [facility] Potassium 4.2 3.5 - 5.3 mmol/L [facility] Chloride 101 98 - 107 mmol/L [facility] Bicarbonate 32 21 - 32 mmol/L [facility] Anion Gap 8(L) 10 - 20 mmol/L [facility] Urea Nitrogen 14 6 - 23 mg/dL [facility] Creatinine 1.00 0.50 - 1.05 mg/dL [facility] GLOMERULAR FILTRATION RATE-NON 54(A) >60 mL/min/1.[address] [facility] GLOMERULAR FILTRATION RATE- 65 >60 mL/min/1.[address] [facility] Comment: CALCULATIONS OF ESTIMATED GFR ARE PERFORMED USING THE MDRD STUDY EQUATION FOR THE IDMS-TRACEABLE CREATININE METHODS. CLIN CHEM 2007;53:766-72 Calcium 8.8 8.6 - 10.3 mg/dL [facility] 01/30/2020 5:25 AM EDT 01/30/2020 6:26 AM EDT us Micah Bird MD LAB BLOOD ORDERABLES Final Res ult [facility] from Last 3 Months or Most Recently Relevant to Health Maintenance Insurance GENERIC COMMERCIAL MEDICARE PART A AND B GENERIC COMMERCIAL MEDICARE PART A AND B Care Teams Crater And Packer Relationship Specialty Start Date End Date Roc Steele MD [address] [facility] [address] [place] [address] PCP - General 10/04/22
--- OUTSIDE RECORDS SUMMARY | 2025-01-24 14:47 | XMS_ITS | Encounter Summary ---
Author Organization [facility] Address [address] [place] [address] Care Team Providers Care Supervisor Fruit Grading Name Role Phone Roc Steele MD Primary Care Provider [phone] Roc Steele MD Unavailable [phone] Luis Felipe Dugan DO Unavailable [phone] Raya Holt RN Unavailable [phone] Gladis Laird LPN Unavailable Encounter Details Date Type Department Care Team (Late st Contact Info) Description 10/16/2023 Abstract [facility] [place] [facility] [address] [facility] [address] [place] [address] Roc Steele MD [address] [facility] [address] [place] [address] Social History Tobacco Use Types Packs/Day Years [...] Score 0 07/06/2023 [facility] - [...] as of this encounter Care Teams Supervisor Fruit Grading Relationship Specialty Start Date End Date Roc Steele MD [address] [facility] [address] [place], [place] [id number] PCP - General Internal Medicine 09/28/22 Roc Steele MD [address] [facility] [address] [place], [place] [id number] PCP - ACO Reach 08/30/23 Luis Felipe Dugan DO [address] [place] [address] Referring Physician Neurology 03/07/24 Raya Holt, RN [address] [place] [address] Clinical Advocate Family Medicine 06/07/24 07/19/24 Gladis Laird LPN 112 [facility] 110 [place] [address] 07/19/24 documented as of this encounter
--- OUTSIDE RECORDS SUMMARY | 2025-01-24 15:01 | XMS_ITS | CCD ---
Author Organization [facility] Care Team Providers Care Feed Handler Name Role Phone Tasia Bird Unavailable Unavailable Unavailable Unavailable Unavailable TRA Cotto, SASHA Consulting Unavailable TRA Cotto, SASHA Admitting Unavailable [...] Briscoe Attending U Rco Wellington MD Unavailable Roc Steele MD Primary Care Provider Roc Steele MD Unavailable Ritchie DO, Christopher Unavailable Mala Sapp Attending UnavailMala Kenney Admitting UnavailRoc Grant Primary Care Unavailable Raya Holt RN Unavailable Roc Steele MD Primary Care Provider Eitan JUAREZ, Gladis Unavailable Unavailable Ritchie DO, Christopher Unavailable Ritchie DO, Christopher Unavailable Laird SENIOR POWER SCHEDULER, Gladis Unavailable KAMILA PRIDE Attending Unavailable ALEX ALFREDO Attending Unavailable KAMILA PRIDE Attending Unavailable BIGG, KAMILA M Attending Unavailable BIGG, KAMILA M Referring Unavailable BIGG, KAMILA M Attending Unavailable BIGG, KAMILA M Referring Unavailable BIGG, KAMILA M Attending Unavailable SAYDA, ALEX A Attending Unavailable USAMA, ROC B Attending Unavailable BROWN, ALEX A Attending Unavailable BIGG, KAMILA M Attending Unavailable BIGG, KAMILA M Attending Unavailable BROWN, ALEX A Attending Unavailable BROWN, ALEX A Attending Unavailable BIGG, KAMILA M Attending Unavailable WAQAS DUGAN Attending Unavailable BIGG, KAMILA M Referring Unavailable BIGG, KAMILA M Attending Unavailable BIGG, KAMILA M Referring Unavailable BIGG, KAMILA M Attending Unavailable BIGG, KAMILA M Attending Unavailable Giedraitis , Andrius Vytyumiko Attending Unavailable Giedraitis , Andrius Vytautas Attending Unavailable Giedraitis , Andrius Vytautas Attending Unavailable HAWLEY, AMBER [...] Unavailable STEELE, ROC B Primary Care Unavailable Waqas Dugan DO Unavailable [phone] Allergies Allergy Classification Reported Allergen(s) Allergy Type Date of Onset Reaction(s) Facility Macrolides (antibiotic) (6 sources) Clarithromycin; Translations: [clarithromycin] Drug Allergy Unknown [facility]: Quinolones (antibiotic) (18 sources) moxifloxacin; Translations: [moxifloxacin] Drug Allergy Anaphylaxis, Unknown [facility] Work Phone: (20 sources) Ciprofloxacin; Translations: [ciprofloxacin] Drug Allergy 3 Unknown [facility] (20 sources) Clarithromycin; Translations: [clarithromycin] Drug Allergy 3 Unknown [facility] (4 sources) moxifloxacin; Translations: [Avelox] Drug Allergy 3 Anaphylaxis [facility] Repository (20 sources) moxifloxacin; Translations: [moxifloxacin] Drug Allergy 3 Anaphylaxis, [facility] Work Phone: (1 source) Ciprofloxacin Drug Allergy 3 [facility] (1 source) Sulfonamides (Antibiotic) Drug allergy (disorder) 3 [facility] (20 sources) Sulfanilamide Allergy to substance 3 [facility] (8 sources) Sulfonamides (Antibiotic); Translations: [SULFA (SULFONAMIDE ANTIBIOTICS)] Propensity to adverse reactions 5 [facility] Work Phone: Medications Current Medications Medication Drug Class(es) Dates Sig (Normalized) Sig (Original) acetaminophen 325 mg / HYDROcodone bitartrate 5 mg oral tablet (20 sources) Opioid Agonist Start: 02-29-2024 End: 11-17-2024 take 1 tablet by mouth every four hours for pain HYDROcodone-acetam inophen ([place]) 5-325 MG tablet Indications: Lumbosacral spondylosis without myelopathy Take 1 tablet by mouth every 4 (four) hours if needed for moderate pain or severe pain 180 tablet 10/18/2024 11/17/2024 Active [id number] 200 actuat albuterol 0.09 mg/actuat metered dose inhaler (13 sources) beta2-Adrenergic Agonist Start: 08-01-2024 End: 08-01-2025 [...] 1 ml denosumab 60 mg/ml prefilled syringe (13 sources) RANK Ligand Inhibitor Start: 01-14-2025 inject 60 mg by subcutaneous injection once Prolia 60 MG/ML solution prefilled syringe Indications: Age-related osteoporosis without current pathological fracture INJECT 60MG SUBCUTANEOUSLY ONCE DIRECTED 1 mL 01/14/2025 Active Start: 08-01-2024 Prolia 60 mg/m L syringe Inject 1 mL (60 mg total) [...] Active fexofenadine hydrochloride 180 mg oral tablet (14 sources) Histamine-1 Receptor Antagonist Start: 08-02-19 End: 08-02-19 take 1 tablet by mouth once daily [...] source) Nitrate Vasodilator Start: 11-16-19 End: 11-16-19 26 take 1 tablet by mouth once daily [...] ONCE DAILY 90 tablet 3 10/10/2024 Active methylPREDNISolone (3 sources) Corticosteroid Start: 05-07-2024 [...] day at the same time. 0 Active qnwaycygiuuc-Jf-eohd-mineral s tablet (1 source) take 1 tablet by mouth once daily fcafrgwifemv-Th-scst-minerals tablet Take 1 tablet by mouth once [...] ONCE DAILY 90 tablet 3 09/11/2024 Active take 1 tablet by mouth once [...] (20 sources) HMG-CoA Reductase Inhibitor Start: 09-13-2023 End: 2025 take 1 tablet by mouth once daily at bedtime simvastatin (Zocor) 10 mg tablet Indications: Mixed hyperlipidemia Take 1 tablet (10 mg) by mouth once daily at bedtime. 90 tablet 3 2024 2025 Active take 1 tablet by mouth once [...] End: 09-11-2024 take 1 tablet by mouth at bedtime zolpidem (Ambien) 10 MG tablet Indications: Primary insomnia TAKE 1 TABLET BY MOUTH AT BEDTIME 90 tablet 09/11/2024 Active Start: 04-13-2023 take 1 tablet by [...] 08-01-2024 Chronic Other aftercare (1 source) Other assisted (current) drug therapy; Translations: [[facility]IOR [facility]ARE CURRENT DRUG THERAPY] Onset: 3 Episodic Other [...] Name Value Interpretation Reference Range Facility XR ANKLE LT MIN [address] [place] [address] XRay Report Signed Patient: LUMA RIBEIRO MR#: [id number] : 1945 Acct:[id number] Age/Sex: 79 / F ADM Date: 01/23/25 Loc: RAD Attending Dr: Kelly Moses D.P.M. Ordering Physician: Kelly Moses D.P.M. Date of Service: 01/23/25 Procedure(s): XR ankle LT min 3V Accession Number(s): [id number] cc: ROC STEELE ; Kelly Moses D.P.M. The [place] [address] Patient Name: LUMA RIBEIRO MRN: [facility]:[id number] date: 1945 Sex: F Assigned Patient Location: [facility] Current Patient Location: [facility] Accession/Order Number: [id number] Exam Date: 01/23/2025 13:15 Report Date: 01/23/2025 13:46 At the request of: KELLY MOSES DPRen Procedure: XR ankle LT min 3V [...] Impression dictated by: Jayce De La Garza Jr. DLazarus 01/23/2025 1:46 PM Dictation Location: [place] [address] Electronically authenticated by: [id number] Y Date: 01/23/2025 13:46 Dictated By: Jayce De La Garza M.D. Signed By: 01/23/25 1349 DD/ 1346 TD/TT: Head Strength And Conditioning Coach: [facility] Radiology, Radiologi MD noemy - 01/23/2025 [place] [address] XRay Report Signed Patient: LUMA RIBEIRO MR#: [id number] : 1945 Acct:[id number] Age/Sex: 79 / F ADM Date: 01/23/25 Loc: RAD Attending Dr: Kelly Moses D.P.M. Ordering Physician: Kelly Moses D.P.M. Date of Service: 01/23/25 Procedure(s): XR ankle LT min 3V Accession Number(s): [id number] cc: ROC STEELE ; Kelly Moses D.P.M. The [place] [id number] Patient Name: LUMA RIBEIRO MRN: [id number] date: 1945 Sex: F Assigned Patient Location: [facility] Current Patient Location: [facility] Accession/Order Number: [id number] Exam Date: 01/23/2025 13:15 Report Date: 01/23/2025 13:46 At the request of: KELLY MOSES DPRen Procedure: XR ankle LT min 3V [...] IMPRESSION: NO HARDWARE COMPLICATION. Impression dictated by: Madelyn Ibarra Jr.OKirti 01/23/2025 1:46 PM Dictation Location: [place] [address] Electronically authenticated by: [id number] Y Date: 01/23/2025 13:46 Dictated By: Jayce De La Garza M.D. Signed By: 01/23/25 1349 DD/ 1346 TD/TT: Head Strength And Conditioning Coach: [facility] Radiology Study observation (narrative) [facility] XR ANKLE LT MIN 3VOrdered By : Radiologist Radiology on 01-23-2025 [facility] Work Phone: MR [place]BAR [place] [address] Magnetic Resonance Report Signed Patient: LUMA RIBEIRO MR#: [id number] : 1945 Acct:[id number] Age/Sex: 78 / F ADM Date: 10/01/24 Loc: MRI Attending Dr: Daron Sanchez M.D. Ordering Physician: Daron Sanchez M.D. Date of Service: 10/01/24 Procedure(s): MR lumbar spine wo con Accession Number(s): [id number] cc: ROC STEELE ; Daron Sanchez M.D. [address] [address] Patient Name: LUMA RIBEIRO MRN: [facility]:[id number] date: 1945 Sex: F Assigned Patient Location: MRI Current Patient Location: MRI Accession/Order Number: [id number] Exam Date: 10/01/2024 14:28 Report Date: 10/01/2024 [...] are noted as above. Impression dictated by: Sriniavsa Bach M.D. 10/01/2024 2:34 PM Dictation Location: [place] [address] Electronically authenticated by: [id number] Y Date: 10/01/2024 14:34 Dictated By: Srinivasa Bach M.D. Signed By: 10/01/24 1437 DD/ 1434 TD/TT: Head Strength And Conditioning Coach: [facility] Radiology, Radiologmekhi salguero MD - 10/01/2024 [place] [address] Magnetic Resonance Report Signed Patient: LUMA RIBEIRO MR#: [id number] : 1945 Acct:[id number] Age/Sex: 78 / F ADM Date: 10/01/24 Loc: MRI Attending Dr: Daron Sanchez M.D. Ordering Physician: Daron Sanchez M.D. Date of Service: 10/01/24 Procedure(s): MR lumbar spine wo con Accession Number(s): [id number] cc: ROC STEELE ; Daron Sanchez M.D. The [place] [id number] Patient Name: LUMA RIBEIRO MRN: [facility]:[id number] date: 1945 Sex: F Assigned Patient Location: MRI Current Patient Location: MRI Accession/Order Number: [id number] Exam Date: 10/01/2024 14:28 Report Date: 10/01/2024 [...] Bach M.D. 10/01/2024 2:34 PM Dictation Location: [place] [address] Electronically authenticated by: [id number] Y Date: 10/01/2024 14:34 Dictated By: Srinivasa Bach M.D. Signed By: 10/01/24 1437 DD/ 143 TD/TT: Head Strength And Conditioning Coach: [facility] Radiology Study observation (narrative) [facility] MR LUMBAR SPINE WO CONOrdere d By: Radiologist Radiology on 10-01-2024 [facility] Work Phone: NUCLEAR STRESS TESTon 2024 NUCLEAR STRESS TEST Interpreted By: David Walls, Lottie Inman STUDY: MYOCARDIAL PERFUSION STRESS TEST WITH LEXISCAN Performing facility: [facility], [address] [place] [address], [address], [address] Provider: Amber Hawley MD, FACC PCP: Dr. Madelyn Steele Supervising provider: David Castle MD, FACC INDICATION: Signs/Symptoms:abn ekg, cp, dizziness, m hld. ,R42 Dizziness and giddiness,R07.89 Other chest pain,R00.2 Palpitations,E78.2 Mixed hyperlipidemia HISTORY: Gender: F; Age: 78 y/o ; Height: HT 162.6 cm cm; Weight: WT 122.018 kg kg. Abnormal EKG; High Cholesterol; HTN; Palpitations; Chest Pain; Denies smoking. COMPARISON: No comparison. ACCESSION NUMBER(S): [id number] ORDERING CLINICIAN: AMBER HAWLEY TECHNIQUE: TWO DAY [...] David Castle 09/19/2024 3:00 PM Dictation workstation: [id number] [facility] TRANSTHORACIC ECHO (TTE) COM PLETEon 09-18-2024 TRANSTHORACIC ECHO (TTE) COMPLETE [address], [address] [place] [address] TRANSTHORACIC ECHOCARDIOGRAM REPORT Patient Name: LUMA RIBEIRO Reading Physician: [id number] David Castle MD, [facility] Study Date: 09/18/2024 Ordering Provider: [id number] AMBER HAWLEY MRN/PID: [id number] Fellow: Nurse: Date of /Age: 7 1945 Certified Nursing Assistant Instructor: Viry ely RDCS, RVT Gender Assigned at F Additional Staff: : Height: 162.56 cm Admit Date: Weight: 122.02 kg Admission Status: Outpatient BSA / BMI: 2.22 m2 / 46.17 Department Location: [facility] kg/m2 [place] Blood Pressure: 124 /86 mmHg Study Type: TRANSTHORACIC ECHO (TTE) COMPLETE Diagnosis/ICD: Supraventricular tachycardia-I47.1; Abnormal electrocardiogram [ECG] [EKG]-R94.31; Palpitations-R00.2 Indication: Edema, HTN, Hyperlipidemia, Carotid Stenosis, CARO, CKD-Stage III, Morbid Obesity CPT Codes: Echo Complete w Full Doppler-56301 Study Detail: The following Echo studies were [...] Rate: 338.04 c (more content not included)... [facility] US Heart TransthoracicOrdere d By: David Castle on 09-18-2024 Aortic Valve Area by Continuity of Peak Velocity 2.65 cm2 [facility] Work Phone: 00 Aortic Valve Area by Continuity of VTI 1.93 cm2 [facility] Work Phone: 00 AV mn grad 7 mmHg [facility] Work Phone: 00 AV pk grad 13 mmHg [facility] Work Phone: AV pk malinda 1.81 m/s [facility] Work Phone: LA vol index A/L 44.1 ml/m2 [facility] Work Phone: 00 LV A4C EF 42.7 [facility] Work Phone: 00 LV Biplane EF 36 % [facility] Work Phone: 00 LV EF 63 % [facility] Work Phone: 00 LVIDd 4.66 cm [facility] Work Phone: LVOT diam 2.27 cm [facility] Work Phone: MV avg E/e' ratio 26.81 [facility] Work Phone: MV E/A ratio 0.79 [facility] Work Phone: RV free wall pk S' 15.98 cm/s [facility] Work Phone: [facility] Work Phone: US Heart Transthoracicon [facility] [address] [place] [address], [address], [place] [address] TRANSTHORACIC ECHOCARDIOGRAM REPORT Patient Name: LUMA Mahnaz RIBEIRO Reading Physician: [id number] David Castle MD, [facility] Study Date: 09/18/2024 Ordering Provider: [id number] AMBER HAWLEY MRN/PID: [id number] Fellow: Nurse: Date of /Age: 7 1945 Certified Nursing Assistant Instructor: Viry ely RDCS, RVT Gender Assigned at F Additional Staff: : Height: 162.56 cm Admit Date: Weight: 122.02 kg Admission Status: Outpatient BSA / BMI: 2.22 m2 / 46.17 Department Location: [facility] kg/m2 [place] Blood Pressure: 124 /86 mmHg Study Type: TRANSTHORACIC ECHO (TTE) COMPLETE Diagnosis/ICD: Supraventricular tachycardia-I47.1; Abnormal electrocardiogram [ECG] [EKG]-R94.31; Palpitations-R00.2 Indication: Edema, HTN, Hyperlipidemia, Carotid Stenosis, CARO, CKD-Stage III, Morbid Obesity CPT Codes: Echo Complete w Full Doppler-64836 Study Detail: The following Echo studies were [...] included)... David Mortensen M D - 09/18/[address], [address] [address] TRANSTHORACIC ECHOCARDIOGRAM REPORT Patient Name: LUMA Deal Physician: [id number] David Castle MD, [facility] Study Date: 09/18/2024 Ordering Provider: [id number] AMBER HAWLEY MRN/PID: [id number] Fellow: Nurse: Date of /Age: 7 1945 Certified Nursing Assistant Instructor: Viry ely RDCS, RVT Gender Assigned at F Additional Staff: : Height: 162.56 cm Admit Date: Weight: 122.02 kg Admission Status: Outpatient BSA / BMI: 2.22 m2 / 46.17 Department Location: [facility] kg/m2 [place] Blood Pressure: 124 /86 mmHg Study Type: TRANSTHORACIC ECHO (TTE) COMPLETE Diagnosis/ICD: Supraventricular tachycardia-I47.1; Abnormal electrocardiogram [ECG] [EKG]-R94.31; Palpitations-R00.2 Indication: Edema, HTN, Hyperlipidemia, Carotid Stenosis, CARO, CKD-Stage III, Morbid Obesity CPT Codes: Echo Complete w Full Doppler-79936 Study Detail: The following Echo studies were [...] Index: 0.48 AORTI (more content not included)... [facility] Work Phone: LIPID PANEL, STANDARD - Cholesterol [Mass/Vol] 153 mg/dL Normal <200 [facility] Comment on above: Order Comment: COLLE CTION KIT GIVEN TO PATIENT. PATIENT ADVISED TO RETURN. Performed By: #### 7 600 #### [facility] [address], [address] [place], [place] [id number] Executive Administrative Assistant: Bryce Larsen MD Cholesterol in HDL [Mass/Vol] 49 mg/dL Low > OR = 50 [facility] Comment on above: Order Comment: COLLE CTION KIT GIVEN TO PATIENT. PATIENT ADVISED TO RETURN. Performed By: #### 7 600 #### [facility] [address], [address] [place], [place] [id number] Executive Administrative Assistant: Bryce Larsen MD Cholesterol in LDL [Mass/Vol] [...] LDL-C. Mike SS et al. MARGO. 2013;310(19): 0528-0260 (http://education.CompareMyFare.NewCell/faq/HSX166) Performed By: #### 7 600 #### [facility] [address], [address] [place] [phone] Executive Administrative Assistant: Bryce Larsen MD Cholesterol.total/Cho lesterol in HDL [Mass ratio] 3.1 {ratio} Normal <5.0 [facility] Comment on above: Order Comment: COLLE CTION KIT GIVEN TO PATIENT. PATIENT ADVISED TO RETURN. Performed By: #### 7 600 #### [facility] [address], [address] [place] [address] Executive Administrative Assistant: Bryce Larsen MD NON HDL CHOLESTEROL 104 [...] By: #### 7 600 #### [facility] [address], [address] [place] [address] Executive Administrative Assistant: Bryce Larsen MD Triglyceride [Mass/Vol] 121 mg/dL Normal <150 [facility] Comment on above: Order Comment: COLLE CTION KIT GIVEN TO PATIENT. PATIENT ADVISED TO RETURN. Performed By: #### 7 600 #### [facility] [address], [address] [place] [address] Executive Administrative Assistant: Bryce Larsen MD DEXA BONE DENSITYon 07-27-19 [...] Available MM TOMOSYNTHESIS SCREENING B Ion 07-18-2024 [place] [address] Mammography Report Signed Patient: LUMA RIBEIRO MR#: [id number] : 1945 Acct:[id number] Age/Sex: 78 / F ADM Date: 07/17/24 Loc: MAMMO Attending Dr: ROC STEELE Ordering Physician: ROC STEELE Results: Date of Service: 07/17/24 Follow Up: Procedure(s): MM tomosynthesis screening BI Accession Number(s): [id number] cc: ROC STEELE Patient Name: LUMA RIBEIRO MR#: [id number] : 1945 Exam Date: 07/17/2024 Ordering Doctor: [...] breast cancer at age 61. LOCATION: [facility] BREAST COMPOSITION: There are scattered areas [...] Signed By: 07/18/24 1620 DD/ 1619 TD/TT: Head Strength And Conditioning Coach: [facility] Radiology, Radiologi MD noemy - 07/18/2024 [place] [address] Mammography Report Signed Patient: LUMA RIBEIRO MR#: [id number] : 1945 Acct:[id number] Age/Sex: 78 / F ADM Date: 07/17/24 Loc: MAMMO Attending Dr: ROC STEELE Ordering Physician: ROC STEELE Results: Date of Service: 07/17/24 Follow Up: Procedure(s): MM tomosynthesis screening BI Accession Number(s): [id number] cc: MARIKA STEELEEL Patient Name: LUMA RIBEIRO MR#: [id number] : 1945 Exam Date: 07/17/2024 Ordering Doctor: [...] breast cancer at age 61. LOCATION: [facility] BREAST COMPOSITION: There are scattered areas [...] De La Garza M.D. Signed By: 07/18/24 1629 DD/ 1619 TD/TT: Head Strength And Conditioning Coach: [facility] Radiology Study observation (narrative) [facility] MM TOMOSYNTHESIS SCREENING B IOrdered By: Radiologist Radiology on 07-18-2024 [facility] Work Phone: ECG 12 Leadon 07-15-2024 [facility] Work Phone: [facility] Work Phone: Laboratory - Hematology and Cell countson 07-11-2024 HbA1c (Bld) [Mass fraction] 6.1 % [facility] No Panel Informationon 07-11 [facility] XR HIP 2 OR 3 VW [...] #### 1 0231, 622 #### [facility] [place] [address] Executive Administrative Assistant: Bryce Larsen MD Albumin/Globulin [Mass ratio] 1.7 {ratio} Normal 1.0-2.5 [facility] Comment on above: Performed By: #### 1 023, 622 #### [facility] [place] [address] Executive Administrative Assistant: Bryce Larsen MD ALP [Catalytic activity/Vol] 99 U/L Normal 37-153 [facility] Comment on above: Performed By: #### 1 0231, 622 #### [facility] [place] [address] Executive Administrative Assistant: Bryce Larsen MD ALT [Catalytic activity/Vol] 8 U/L Normal 6-29 [facility] Comment on above: Performed By: #### 1 023, 622 #### [facility] [place] [address] Executive Administrative Assistant: Bryce Larsen MD AST [Catalytic activity/Vol] 19 U/L Normal 10-35 [facility] Comment on above: Performed By: #### 1 0231, 622 #### [facility] [place] [address] Executive Administrative Assistant: Bryce Larsen MD Bilirubin [Mass/Vol] 0.6 mg/dL Normal 0.2-1.2 [facility] Comment on above: Performed By: #### 1 230, 622 #### [facility] of [place] [address] Executive Administrative Assistant: Bryce Larsen MD Calcium [Mass/Vol] 8.9 mg/dL Normal 8.6-10.4 [facility] Comment on above: Performed By: #### 1 230, 622 #### [facility] [place] [address] Executive Administrative Assistant: Bryce Larsen MD Chloride [Moles/Vol] 104 mmol/L Normal 98-110 [facility] Comment on above: Performed By: #### 1 230, 622 #### [facility] [place] [address] Executive Administrative Assistant: Bryce Larsen MD CO2 [Moles/Vol] 27 mmol/L Normal 20-32 [facility] Comment on above: Performed By: #### 1 230, 622 #### [facility] [place] [address] Executive Administrative Assistant: Bryce Larsen MD Creatinine [Mass/Vol] 1.11 mg/dL High 0.60-1.[address] [facility] Comment on above: Performed By: #### 1 230, 622 #### [facility] [place] [address] Executive Administrative Assistant: Bryce Larsen MD GFR/1.73 sq M.predicted among non-blacks MDRD (S/P/Bld) [Vol rate/Area] 51 mL/min/{1.73_m2} Low > OR = 60 [facility] Comment on above: Performed By: #### 1 230, 622 #### [facility] [place] [address] Executive Administrative Assistant: Bryce Larsen MD Globulin (S) [Mass/Vol] 2.3 g/dL Normal 1.9-3.7 [facility] Comment on above: Performed By: #### 1 230, 622 #### [facility] [place] [address] Executive Administrative Assistant: Bryce Larsen MD Glucose [Mass/Vol] 145 mg/dL High 65-139 [facility] Comment on above: Result Comment: Non-fasting reference interval For someone without known diabetes, a glucose value >125 mg/dL indicates that they may have diabetes and this should be confirmed with a follow-up test. Performed By: #### 1 230, 622 #### [facility] [place] [address] Executive Administrative Assistant: Bryce Larsen MD Potassium [Moles/Vol] 4.2 mmol/L Normal 3.5-5.[address] [facility] [address] [facility] Comment on above: Performed By: #### 1 230, 622 #### [facility] [place] [address] Executive Administrative Assistant: Bryce Larsen MD Protein [Mass/Vol] 6.3 g/dL Normal 6.1-8.1 [facility] Comment on above: Performed By: #### 1 230, 622 #### [facility] [place] [address] Executive Administrative Assistant: Bryce Larsen MD Sodium [Moles/Vol] 138 mmol/L Normal 135-146 [facility] Comment on above: Performed By: #### 1 230, 622 #### [facility] [place] [address] Executive Administrative Assistant: Bryce Larsen MD Urea nitrogen [Mass/Vol] 19 mg/dL Normal 7-25 [facility] Comment on above: Performed By: #### 1 230, 622 #### [facility] [place] [address] Executive Administrative Assistant: Bryce Larsen MD Urea nitrogen/Creatinine [Mass ratio] 17 mg/mg Normal 6-22 [facility] Comment on above: Performed By: #### 1 0231, 622 #### [facility] of [address], [address] [place] [address] Executive Administrative Assistant: Bryce Larsen MD MAGNESIUMon 07-04-2024 Magnesium [Mass/Vol] 2.0 mg/dL Normal 1.5-2.5 [facility] Comment on above: Order Comment: FASTI NG:NO FASTING: NO Performed By: #### 1 0231, 622 #### [facility] of [address], [address] [place] [address] Executive Administrative Assistant: Bryce Larsen MD B TYPE NATRIURETIC PEPTIDE ( BNP)on 06-12-2024 Natriuretic peptide B (Bld) [Mass/Vol] 108 pg/mL High <100 [facility] Comment on above: Result Comment: BNP levels increase with age in the general population with the highest values seen in individuals greater than 75 years of age. Reference: J. Am. Vladislav. Cardiol. 2002; 40:976-982. Performed By: #### 3 [id number] #### [facility] of [address], [address] [place] [address] Executive Administrative Assistant: Bryce Larsen MD [facility] METABOLIC [facility] 05-23-2024 Albumin [Mass/Vol] 3.6 g/dL Normal 3.6-5.1 [facility] Comment on above: Performed By: #### 6 , [id number] #### [facility] of [address], [address] [place] [address] Executive Administrative Assistant: Bryce Larsen MD Albumin/Globulin [Mass ratio] 1.3 {ratio} Normal 1.0-2.5 [facility] Comment on above: Performed By: #### 6 , 06736 #### [facility] of [address], [address] [place] [address] Executive Administrative Assistant: Bryce Larsen MD ALP [Catalytic activity/Vol] 87 U/L Normal 37-153 [facility] Comment on above: Performed By: #### 6 , 84078 #### [facility] of [address], [address] [place] [address] Executive Administrative Assistant: Bryce Larsen MD ALT [Catalytic activity/Vol] 15 U/L Normal 6-29 [facility] Comment on above: Performed By: #### 6 22, 71136 #### [facility] [place] [address] Executive Administrative Assistant: Bryce Larsen MD AST [Catalytic activity/Vol] 31 U/L Normal 10-35 [facility] Comment on above: Performed By: #### 6 22, 27898 #### [facility] of [place] [address] Executive Administrative Assistant: Bryce Larsen MD Bilirubin [Mass/Vol] 0.5 mg/dL Normal 0.2-1.2 [facility] Comment on above: Performed By: #### 6 , 94585 #### [facility] [place] [address] Executive Administrative Assistant: Bryce Larsen MD Calcium [Mass/Vol] 9.1 mg/dL Normal 8.6-10.4 [facility] Comment on above: Performed By: #### 6 22, 30300 #### [facility] of [place] [address] Executive Administrative Assistant: Bryce Larsen MD Chloride [Moles/Vol] 103 mmol/L Normal 98-110 [facility] Comment on above: Performed By: #### 6 , 07003 #### [facility] of [place] [address] Executive Administrative Assistant: Bryce Larsen MD CO2 [Moles/Vol] 27 mmol/L Normal 20-32 [facility] Comment on above: Performed By: #### 6 22, 23395 #### [facility] of [place] [address] Executive Administrative Assistant: Bryce Larsen MD Creatinine [Mass/Vol] 1.04 mg/dL High 0.60-1.[address] [facility] Comment on above: Performed By: #### 6 , 97169 #### [facility] of [place] [address] Executive Administrative Assistant: Bryce Larsen MD GFR/1.73 sq M.predicted among non-blacks MDRD (S/P/Bld) [Vol rate/Area] 55 mL/min/{1.73_m2} Low > OR = 60 [facility] Comment on above: Performed By: #### 6 , 33747 #### [facility] of [place] [address] Executive Administrative Assistant: Bryce Larsen MD Globulin (S) [Mass/Vol] 2.7 g/dL Normal 1.9-3.7 [facility] Comment on above: Performed By: #### 6 , 30290 #### [facility] of [place] [address] Executive Administrative Assistant: Bryce Larsen MD Glucose [Mass/Vol] 73 mg/dL Normal 65-139 [facility] Comment on above: Result Comment: Non-fasting reference interval Performed By: #### 6 , 94902 #### [facility] of [place] [address] Executive Administrative Assistant: Bryce Larsen MD Potassium [Moles/Vol] 4.7 mmol/L Normal 3.5-5.[address] [facility] Comment on above: Performed By: #### 6 , 09531 #### [facility] of [place] [address] Executive Administrative Assistant: Bryce Larsen MD Protein [Mass/Vol] 6.3 g/dL Normal 6.1-8.1 [facility] Comment on above: Performed By: #### 6 , 68719 #### [facility] of [place] [address] Executive Administrative Assistant: Bryce Larsen MD Sodium [Moles/Vol] 137 mmol/L Normal 135-146 [facility] Comment on above: Performed By: #### 6 , 69699 #### [facility] of [address] Executive Administrative Assistant: Bryce Larsen MD Urea nitrogen [Mass/Vol] 15 mg/dL Normal 7-25 [facility] Comment on above: Performed By: #### 6 , 96079 #### [facility] [address], [address] [place] [address] Executive Administrative Assistant: Bryce Larsen MD Urea nitrogen/Creatinine [Mass ratio] 14 mg/mg Normal 6-22 [facility] Comment on above: Performed By: #### 6 , 62844 #### [facility] [address], [address] [place] [address] Executive Administrative Assistant: Bryce Larsen MD MAGNESIUMon 05-23-2024 Magnesium [Mass/Vol] 1.9 mg/dL Normal 1.5-2.5 [facility] Comment on above: Order Comment: FASTI NG:NO FASTING: NO Performed By: #### 6 , 03417 #### [facility] [address], [address] [place] [address] Executive Administrative Assistant: Bryce Larsen MD ALL BASIC METABOLIC PANELon 05-16-2024 Anion gap [Moles/Vol] 12 mmol/L [facility] Calcium [Mass/Vol] 9 mg/dL 8.5 - 10. 1 mg/dL [facility] Chloride [Moles/Vol] 98 mmol/L 98 - 10 7 mmol/L [facility] CO2 [Moles/Vol] 29.6 mmol/L 21.0 - 32.0 mmol/L [facility] Creatinine [Mass/Vol] 1.42 mg/dL High 0.55 - 1.02 mg/dL [facility] GFR/1.73 sq M.predicted CKD-EPI (S/P/Bld) [Vol rate/Area] 43 Low >=60 mL/min/1.7 3m 2 [facility] Glucose [Mass/Vol] 74 mg/dL 74 - 106 mg/dL [facility] Interpretation and review of laboratory results Abnormal [facility] Potassium [Moles/Vol] 3.6 mmol/L 3.5 - 5.1 mmol/L [facility] Sodium [Moles/Vol] 136 mmol/L 136 - 145 mmol/L [facility] TBH EGFR-NON AF GREENLANDIC 36 Low >=60 mL/min/1.7 3m 2 [facility] Urea nitrogen [Mass/Vol] 36 mg/dL High 7.0 - 18.0 mg/dL [facility] Urea nitrogen/Creatinine [Mass ratio] 25.4 mg/mg [facility] XR chest 2V*on 04-29-2024 XR chest 2V* [facility] [place] [address] [place], [place] [id number] XRay Report Signed Patient: Luma Ribeiro MR#: [id number] 923 : 1945 Acct:[id number] Age/Sex: 78 / F ADM Date: 04/29/24 Loc: XDUCLY Room: Type: [facility] 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 APRN Copies [...] R Christopher M.D.04/29/2024 4:00 PM Dictation Location: [facility]--19 Transcribed By: [facility] 04/29/24 1600 Dictated By: Jose R Christopher DO 04/29/24 1559 Signed By: 04/29/24 1600 Normal [facility] XR CHEST 2 VIEWSon 4 [...] de hand and wrist EMG 1 Extremeityon [facility] NVC 7-8 Nerveson 03-07-2024 [facility] Established Visit (Orthopaed ic Surgery)on 10-04-2022 [...] Complaint RT shoulder Ongoing issue 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 Distal pulses and sensation are intact. Limited forward flexion to about 25 degrees lateral abduction to about 15 unable to perform any external rotation but internal he can get to the small of her back. Her exam does not allow for much of a true Neer's [place] or [place]'s test. Diagnostics: See dictated report from today, previous outside CT scan report of the humerus reviewed, and is available in the [facility] chart. 1 Procedure: None Assessment: Chronic [...] the patient's CT scan report reviewed in [facility] chart Other 1 than the anterior [...] grammatical areas may persist related to the [employer] software (more content not included)... Normal [facility] Radiologyon 10-04-2022 XR Shoulder 2 Views Normal [facility] Work Phone: SHOULDER, CMPLT, MIN 2 VIEWS on 10-04-2022 SHOULDER, CMPLT, MIN 2 VIEWS Patient Name: LUMA RIBEIRO STUDY: SHOULDER, CMPLT, MIN 2 VIEWS; Right; 10/04/2022 1:49 pm INDICATION: pain M25.519: Shoulder pain. ACCESSION NUMBER(S): [id number] ORDERING CLINICIAN: TANIYA AL FINDINGS: Multiple views [...] Electronically signed by: TANIYA AL MD Normal [facility] CT HUMERUS RIGHT W/O CONTRAS Minesh 09-12-2022 [...] by Pernell Wiley on 09/12/2022 1127 Normal [facility] XR Chest 2 Views*on 09-13-19 XR Chest 2 Views* HISTORY: Recent fall [...] by Pernell Wiley on 09/12/2022 1101 Normal [facility] XR CHEST 2 Von 09-05-2022 XR CHEST [...] ISAEL HANSEN Date: 2022-09-05 15:11 Normal [facility] XR KUB 1 VIEWon 09-05-2022 XR [...] ISAEL HANSEN Date: 2022-09-05 15:10 Normal [facility] AMYLASEon 09-03-2022 Amylase [Catalytic activity/Vol] 34 U/L Normal 25-115 [facility] Comment on above: Performed By: #### L IPA, CMP, CMADM, BNP, GRACIELA #### [facility] [address] [place] [address] [address] Yonny Meza BNPon 09-03-2022 Natriuretic peptide B (Bld) [Mass/Vol] 241.0 pg/mL Normal <=1,800.0 [facility] Comment on above: Performed By: #### L IPA, CMP, CMADM, BNP, GRACIELA #### [facility] [address] [place] [address] Dr. Yonny Meza CARDIAC SRINIVASA ADMITon 023 CK [Catalytic activity/Vol] 154 U/L Normal 26-192 [facility] Comment on above: Performed By: #### L IPA, CMP, CMADM, BNP, GRACIELA #### [facility] [address] [place] [address] [address] Yonny Meza CK.MB [Mass/Vol] 1.42 ng/mL Normal <=3.60 [facility] Comment on above: Performed By: #### L IPA, CMP, CMADM, BNP, GRACIELA #### [facility] [address] [place] [address] Dr. Yonny Meza HSTROP 13.9 pg/mL Normal 4.0-51.3 [facility] Comment on above: Result Comment: CUT- OFF POINTS HAVE BEEN ESTABLISHED BASED ON THE FOURTH UNIVERSAL DEFINITIONS OF MYOCARDIAL INFARCTION. THE UPPER REFERENCE LIMIT (URL) OF TROPONIN, DEFINED THE 99TH PERCENTILE OF cTnI DISTRIBUTION IN A REFERENCE POPULATION, HAS BEEN CONFIRMED THE DECISION THRESHOLD FOR OR DIAGNOSIS. Performed By: #### L IPA, CMP, CMADM, BNP, GRACIELA #### [facility] [address] [place] [address] Dr. Yonny Meza DARION 63 ng/mL Normal 9-82 [facility] Comment on above: Performed By: #### L IPA, CMP, CMADM, BNP, GRACIELA #### [facility] [address] [place] [address] Dr. Yonny Meza CBC AUTO DIFFon 09-03-2022 BASO # 0.0 103/ul Normal 0.0-0.1 [facility] Comment on above: Performed By: #### L IPA, CMP, CMADM, BNP, GRACIELA #### [facility] [address] [place] [address] Dr. Yonny Meza Basophils/100 WBC (Bld) 0.4 % Normal 0.2-2.0 [facility] Comment on above: Performed By: #### L IPA, CMP, CMADM, BNP, GRACIELA #### [facility] [address] [place] [address] Dr. Yonny Meza EO # 0.1 103/ul Normal 0.0-0.7 [facility] Comment on above: Performed By: #### L IPA, CMP, CMADM, BNP, GRACIELA #### [facility] [address] [place] [address] Dr. Yonny Meza Eosinophils/100 WBC (Bld) 1.6 % Normal 0.9-7.0 [facility] Comment on above: Performed By: #### L IPA, CMP, CMADM, BNP, GRACIELA #### [facility] [address] [place] [address] Dr. Yonny Meza Erythrocyte distribution width (RBC) [Ratio] 12.6 % Normal 11.0-15.0 [facility] Comment on above: Performed By: #### L IPA, CMP, CMADM, BNP, GRACIELA #### [facility] [address] [place] [address] Dr. Yonny Meza Hematocrit (Bld) [Volume fraction] 38.9 % Normal 36.0-48.0 [facility] Comment on above: Performed By: #### L IPA, CMP, CMADM, BNP, GRACIELA #### [facility] [address] [place] [address] Dr. Yonny Meza Hemoglobin (Bld) [Mass/Vol] 13.0 g/dL Normal 12.0-16.0 [facility] Comment on above: Performed By: #### L IPA, CMP, CMADM, BNP, GRACIELA #### [facility] [address] [place] [address] Dr. Yonny Meza IG # 0.02 10e3/ul Normal 0.00-0.03 [facility] Comment on above: Performed By: #### L IPA, CMP, CMADM, BNP, GRACIELA #### [facility] [address] [place] [address] Dr. Yonny Meza IG % 0.3 % Normal 0.0-0.5 [facility] Comment on above: Performed By: #### L IPA, CMP, CMADM, BNP, GRACIELA #### [facility] [address] [place] [address] Dr. Yonny Meza LYMPH # 2.0 103/ul Normal 1.2-3.8 [facility] Comment on above: Performed By: #### L IPA, CMP, CMADM, BNP, GRACIELA #### [facility] [address] [place] [address] Dr. Yonny Meza Lymphocytes/100 WBC (Bld) 25.3 % Normal 20.5-60.0 [facility] Comment on above: Performed By: #### L IPA, CMP, CMADM, BNP, GRACIELA #### [facility] [address] [place] [address] Dr. Yonny Meza MANUAL DIFF REQ NO Normal [facility] Comment on above: Performed By: #### L IPA, CMP, CMADM, BNP, GRACIELA #### [facility] [address] [place] [address] Dr. Yonny Meza MCH (RBC) [Entitic mass] 31.8 pg Normal 26.7-34.0 [facility] Comment on above: Performed By: #### L IPA, CMP, CMADM, BNP, GRACIELA #### [facility] [address] [place] [address] Dr. Yonny Meza MCHC (RBC) [Mass/Vol] 33.4 g/dL Normal 29.9-35.2 [facility] Comment on above: Performed By: #### L IPA, CMP, CMADM, BNP, GRACIELA #### [facility] [address] [place] [address] Dr. Yonny Meza MCV (RBC) [Entitic vol] 95.1 fL Normal 81.0-99.0 [facility] Comment on above: Performed By: #### L IPA, CMP, CMADM, BNP, GRACIELA #### [facility] [address] [place] [address] Dr. Yonny Meaz MONO # 0.9 103/ul Critically high 0.3-0.8 [facility] Comment on above: Performed By: #### L IPA, CMP, CMADM, BNP, GRACIELA #### [facility] [address] [place] [address] Dr. Yonny Meza Monocytes/100 WBC (Bld) 11.5 % Normal 1.7-12.0 [facility] Comment on above: Performed By: #### L IPA, CMP, CMADM, BNP, GRACIELA #### [facility] [address] [place] [address] Dr. Yonny Meza NEUT # 4.8 103/ul Normal 1.4-6.5 [facility] Comment on above: Performed By: #### L IPA, CMP, CMADM, BNP, GRACIELA #### [facility] [address] [place] [address] Dr. Yonny Meza Neutrophils/100 WBC (Bld) 60.9 % Normal 43.0-75.0 [facility] Comment on above: Performed By: #### L IPA, CMP, CMADM, BNP, GRACIELA #### [facility] [address] [place] [address] Dr. Yonny Meza Platelet mean volume (Bld) [Entitic vol] 10.1 fL Normal 9.5-13.5 [facility] Comment on above: Performed By: #### L IPA, CMP, CMADM, BNP, GRACIELA #### [facility] [address] [place] [address] [address] Yonny Meza PLT 252 103/ul Normal 150-450 [facility] Comment on above: Performed By: #### L IPA, CMP, CMADM, BNP, GRACIELA #### [facility] [address] [place] [address] [address] Yonny Meza RBC 4.09 106/ul Critically low 4.20-5.40 [facility] Comment on above: Performed By: #### L IPA, CMP, CMADM, BNP, GRACIELA #### [facility] [address] [place] [address] [address] Yonny Meza WBC 7.9 103/ul Normal 4.0-11.0 [facility] Comment on above: Performed By: #### L IPA, CMP, CMADM, BNP, GRACIELA #### [facility] [address] [place] [address] [address] ABD/PELVIS WO CONon [...] HATTIE [place] Date: 2022-09-03 01:11 Normal [facility] ER URINE PROFILEon 3 Bilirubin Ql (U) Negative Normal NEGATIVE [facility] Comment on above: Performed By: #### L IPA, CMP, CMADM, BNP, GRACIELA #### [facility] [address] [place] [address] [address] Yonny Meza Clarity (U) CLEAR Normal CLEAR [facility] Comment on above: Performed By: #### L IPA, CMP, CMADM, BNP, GRACIELA #### [facility] [address] [place] [address] [address] Yonny Meza Color (U) LT. YELLOW Normal YELLOW [facility] Comment on above: Performed By: #### L IPA, CMP, CMADM, BNP, GRACIELA #### [facility] [address] [address] [address] Yonny Meza ERUAHTy A micrscopic examina tion will be performed if indicated. Normal [facility] Comment on above: Performed By: #### L IPA, CMP, CMADM, BNP, GRACIELA #### [facility] [address] [place] [address] [address] Yonny Meza Glucose Ql (U) Negative Normal NEGATIVE [facility] Comment on above: Performed By: #### L IPA, CMP, CMADM, BNP, GRACIELA #### [facility] [address] [address] [address] Yonny Meza Hemoglobin Ql (U) Negative Normal NEGATIVE [facility] Comment on above: Performed By: #### L IPA, CMP, CMADM, BNP, GRACIELA #### [facility] [address] [place] [address] Dr. Yonny Meza Ketones Ql (U) Negative Normal NEGATIVE [facility] Comment on above: Performed By: #### L IPA, CMP, CMADM, BNP, GRACIELA #### [facility] [address] [place] [address] Dr. Yonny Meza LEUKOCYTES Negative Normal NEGATIVE [facility] Comment on above: Performed By: #### L IPA, CMP, CMADM, BNP, GRACIELA #### [facility] [address] [address] [address] Yonny Meza Nitrite Ql (U) Negative Normal NEGATIVE [facility] Comment on above: Performed By: #### L IPA, CMP, CMADM, BNP, GRACIELA #### [facility] [address] [address] [address] Yonny Meza pH (U) 7.0 [pH] Normal 5-9 [facility] Comment on above: Performed By: #### L IPA, CMP, CMADM, BNP, GRACIELA #### [facility] [address] [address] [address] Yonny Meza SPEC GRAVITY 1.015 Normal 1.005-<=1. 025 [facility] Comment on above: Performed By: #### L IPA, CMP, CMADM, BNP, GRACIELA #### [facility] [address] [place] [address] Dr. Yonny Meza UA PROTEIN Negative Normal NEGATIVE/ TRACE [facility] Comment on above: Performed By: #### L IPA, CMP, CMADM, BNP, GRACIELA #### [facility] [address] [place] [address] Dr. Yonny Meza UR MICRO IND NOT INDICATED Normal [facility] Comment on above: Performed By: #### L IPA, CMP, CMADM, BNP, GRACIELA #### [facility] [address] [place] [address] Dr. Yonny Meza Urobilinogen Qn (U) 0.2 {Arnaud'U}/dL Normal 0.2 - 1. 0 [facility] Comment on above: Performed By: #### L IPA, CMP, CMADM, BNP, GRACIELA #### [facility] [address] [place] [address] Dr. Yonny Meza LACTATE/LACTIC ACIDon 2022 Lactate [Moles/Vol] 2.3 mmol/L Critically high 0.4-2.0 [facility] Comment on above: Performed By: #### L ACT #### [facility] [address] [place] [address] Dr. Yonny Meza Lactate [Moles/Vol] 2.2 mmol/L Critically high 0.4-2.0 [facility] Comment on above: Performed By: #### L IPA, CMP, CMADM, BNP, GRACIELA #### [facility] [address] [place] [address] Dr. Yonny Meza LIPASEon 09-03-2022 Lipase [Catalytic activity/Vol] 88.0 U/L Normal 73.0-393.0 [facility] Comment on above: Performed By: #### L IPA, CMP, CMADM, BNP, GRACIELA #### [facility] [address] [place] [address] Dr. Yonny Meza PROF 14(COMP METB)on 023 Albumin [Mass/Vol] 3.3 g/dL Critically low 3.4-5.0 [facility] Comment on above: Performed By: #### L IPA, CMP, CMADM, BNP, GRACIELA #### [facility] [address] [place] [address] Dr. Yonny Meza Albumin/Globulin [Mass ratio] 0.9 {ratio} Normal [facility] Comment on above: Performed By: #### L IPA, CMP, CMADM, BNP, GRACIELA #### [facility] [address] [place] [address] Dr. Yonny Meza ALP [Catalytic activity/Vol] 122 U/L Critically high 46-116 [facility] Comment on above: Performed By: #### L IPA, CMP, CMADM, BNP, GRACIELA #### [facility] [address] [place] [address] Dr. Yonny Meza ALT [Catalytic activity/Vol] 21 U/L Normal 14-59 [facility] Comment on above: Performed By: #### L IPA, CMP, CMADM, BNP, GRACIELA #### [facility] [address] [place] [address] Dr. Yonny Meza Anion gap [Moles/Vol] 12.4 mmol/L Normal [facility] Comment on above: Performed By: #### L IPA, CMP, CMADM, BNP, GRACIELA #### [facility] [address] [place] [address] Dr. Yonny Meza AST [Catalytic activity/Vol] 24 U/L Normal 15-37 [facility] Comment on above: Performed By: #### L IPA, CMP, CMADM, BNP, GRACIELA #### [facility] [address] [place] [address] Dr. Yonny Meza Bilirubin [Mass/Vol] 0.4 mg/dL Normal 0.2-1.0 [facility] Comment on above: Performed By: #### L IPA, CMP, CMADM, BNP, GRACIELA #### [facility] [address] [place] [address] Dr. Yonny Meza Calcium [Mass/Vol] 8.7 mg/dL Normal 8.5-10.1 [facility] Comment on above: Performed By: #### L IPA, CMP, CMADM, BNP, GRACIELA #### [facility] [address] [place] [address] Dr. Yonny Meza Chloride [Moles/Vol] 105 mmol/L Normal 98-107 [facility] Comment on above: Performed By: #### L IPA, CMP, CMADM, BNP, GRACIELA #### [facility] [address] [place] [address] Dr. Yonny Meza CO2 [Moles/Vol] 28.0 mmol/L Normal 21.0-32.0 [facility] Comment on above: Performed By: #### L IPA, CMP, CMADM, BNP, GRACIELA #### [facility] [address] [place] [address] Dr. Yonny Meza Creatinine [Mass/Vol] 1.11 mg/dL Critically high 0.55-1.02 [facility] Comment on above: Performed By: #### L IPA, CMP, CMADM, BNP, GRACIELA #### [facility] [address] [place] [address] Dr. Yonny Meza EGFR-AF GREEN[place]IC 58 mL/min/1.73m2 Critically low >=60 [facility] Comment on above: Performed By: #### L IPA, CMP, CMADM, BNP, GRACIELA #### [facility] [address] [place] [address] Dr. Yonny Meza EGFR-NON AF [place]IC 48 mL/min/1.73m2 Critically low >=60 [facility] Comment on above: Performed By: #### L IPA, CMP, CMADM, BNP, GRACIELA #### [facility] [address] [place] [address] Dr. Yonny Meza Globulin (S) [Mass/Vol] 3.7 g/dL Normal [facility] Comment on above: Performed By: #### L IPA, CMP, CMADM, BNP, GRACIELA #### [facility] [address] [place] [address] Dr. Yonny Meza Glucose [Mass/Vol] 152 mg/dL Critically high 74-106 [facility] Comment on above: Performed By: #### L IPA, CMP, CMADM, BNP, GRACIELA #### [facility] [address] [address] [address] Yonny Meza Potassium [Moles/Vol] 3.4 mmol/L Critically low 3.5-5.1 [facility] Comment on above: Performed By: #### L IPA, CMP, CMADM, BNP, GRACIELA #### [facility] [address] [address] [address] Yonny Meza Protein [Mass/Vol] 7.0 g/dL Normal 6.4-8.2 [facility] Comment on above: Performed By: #### L IPA, CMP, CMADM, BNP, GRACIELA #### [facility] [address] [address] [address] Yonny Meza Sodium [Moles/Vol] 142 mmol/L Normal 136-145 [facility] Comment on above: Performed By: #### L IPA, CMP, CMADM, BNP, GRACIELA #### [facility] [address] [place] [address] Dr. Yonny Meza Urea nitrogen [Mass/Vol] 14.0 mg/dL Normal 7.0-18.0 [facility] Comment on above: Performed By: #### L IPA, CMP, CMADM, BNP, GRACIELA #### [facility] [address] [place] [address] Dr. Yonny Meza Urea nitrogen/Creatinine [Mass ratio] 12.6 mg/mg Normal [facility] Comment on above: Performed By: #### L IPA, CMP, CMADM, BNP, GRACIELA #### [facility] [address] [place] [address] Dr. Yonny Meza PROTIMEon 09-03-2022 INR Coag (PPP) [Relative time] 1.05 {INR} Normal [facility] Comment on above: Performed By: #### L IPA, CMP, CMADM, BNP, GRACIELA #### [facility] [address] [place] [address] Dr. Yonny Meza INR GUIDELINES SEE BELOW Normal [facility] Comment on above: Result Comment: ASCENCION RED INR: 2.0 - 3.0 CONDITIONS NOT LISTED BELOW 2.5 - 3.5 FOR PROSTHETIC HEART VALVE REPLACEMENT 2.5 - 3.5 RECURRENT THROMBOSIS Performed By: #### L IPA, CMP, CMADM, BNP, GRACIELA #### [facility] [address] [address] [address] Yonny Meza PT Coag (PPP) [Time] 11.1 s Normal 9.0-11.6 [facility] Comment on above: Performed By: #### L IPA, CMP, CMADM, BNP, GRACIELA #### [facility] [address] [address] [address] Yonny Meza PTTon 09-03-2022 aPTT Coag (Bld) [Time] 26.7 s Normal 22.3-36.2 [facility] Comment on above: Performed By: #### L IPA, CMP, CMADM, BNP, GRACIELA #### [facility] [address] [address] [address] Yonny Meza XR CHEST 1 Von [...] [place] Date: 2022-09-03 00:08 Normal [facility] MAMM SCREEN 3D RON CADon 06-06-2022 MG MAMM SCREEN 3D RON CAD Patient: LUMA RIBEIRO Exam Date: 06/06/2022 : 1945 Gender:F Ordering : DR ROC STEELE M.D. Admission #: [id number] Family : Order #: [id number] CLICK HERE TO VIEW EXAM RADIOLOGY REPORT [...] breast cancer at age 61. LOCATION: [facility] BREAST COMPOSITION: Scattered areas fibroglandular density. [...] MD on 06/07/2022 at 08:09 Normal [facility] No Panel Informationon 12-16 Please click on the link to view the study images [facility] Work Phone: Radiologyon 12-03-2020 XR Pelvis and Hip - left 2 Views Normal [facility] Work Phone: MRI Humerus w/wo Contraston 11-20-2020 MRI Humerus w/wo Contrast Normal [facility] Work Phone: Otheron 02-13-2020 Interpreted by: BONIFACIO ALARCON 15:34MRN: [id number] Name: GEMALUMA STUDY:HIP, UNILATERAL W/PELVIS WHEN PERFORMED 2-3 VIEWS; Right;02/13/2020 1:58 pm INDICATION:pain. 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 No acute bony abnormality orperiprosthetic fracture appreciated. Electronically signed by: TASIA BIRD 02/13/20 15:34 Normal [facility] Work Phone: Complete Blood Count + Diffe rentialon 01-30-2020 Basophils (Bld) [#/Vol] 0.04 {x10E9/L} See Below [facility] Work Phone: Comment on above: Reference Range: 0.0 0 - 0.10 Basophils/100 WBC (Bld) 0.2 % 0.0 - 2.[address] [facility] Work Phone: Eosinophils (Bld) [#/Vol] 0.01 {x10E9/L} See Below [facility] Work Phone: Comment on above: Reference Range: 0.0 0 - 0.40 Eosinophils/100 WBC (Bld) 0.1 % 0.0 - 6.[address] [facility] Work Phone: Erythrocyte distribution width (RBC) [Ratio] 13.1 % See Below [facility] Work Phone: Comment on above: Reference Range: 11. 5 - 14.5 Hematocrit (Bld) [Volume fraction] 34.8 % below low threshold See Below [facility] Work Phone: Comment on above: Reference Range: 36. 0 - 46.0 Hemoglobin (Bld) [Mass/Vol] 11.3 g/dL below low threshold See Below [facility] Work Phone: Comment on above: Reference Range: 12. 0 - 16.0 Lymphocytes (Bld) [#/Vol] 2.21 {x10E9/L} See Below [facility] Work Phone: Comment on above: Reference Range: 0.8 0 - 3.00 Lymphocytes/100 WBC (Bld) 12.5 % See Below [facility] Work Phone: Comment on above: Reference Range: 13. 0 - 44.0 MCHC (RBC) [Mass/Vol] 32.5 g/dL See Below [facility] [place] Work Phone: Comment on above: Reference Range: 32. 0 - 36.0 MCV (RBC) [Entitic vol] 99 fL 80 - 100 [facility] Work Phone: Monocytes (Bld) [#/Vol] 1.82 {x10E9/L} above high threshold See Below [facility] Work Phone: Comment on above: Reference Range: 0.0 5 - 0.80 Monocytes/100 WBC (Bld) 10.3 % 2.0 - 10.0 [facility] Work Phone: Neutrophils/100 WBC (Bld) 76.3 % See Below [facility] Work Phone: Comment on above: Reference Range: 40. 0 - 80.0 Platelets (Bld) [#/Vol] 234 {x10E9/L} 150 - 450 [facility] Work Phone: RBC (Bld) [#/Vol] 3.52 {x10E12/L} below low threshold See Below [facility] Work Phone: Comment on above: Reference Range: 4.0 0 - 5.20 WBC (Bld) [#/Vol] 17.7 {x10E9/L} above high threshold 4.4 - 11.3 [facility] Work Phone: Complete Blood Count + Differential 0.6 % 0.0 - 0.9 [facility] Work Phone: Comment on above: Immature Granulocyte Count (IG) includes promyelocytes, myelocytes and metamyelocytes but does not include bands. Percent differential counts (%) should be interpreted in the context of the absolute cell counts (cells/L). Complete Blood Count + Differential 13.52 {x10E9/L} above high threshold See Below [facility] [place] [facility] Work Phone: Comment on above: Reference Range: 1.6 0 - 5.50 Metabolic Panelon 01-30-2020 Anion gap [Moles/Vol] 8 mmol/L below low threshold 10 - 20 [facility] Work Phone: Calcium [Mass/Vol] 8.8 mg/dL 8.6 - 10.[address] [facility] [place] [facility] Work Phone: Chloride [Moles/Vol] 101 mmol/L 98 - 107 [facility] [place] [facility] Work Phone: CO2 [Moles/Vol] 32 mmol/L 21 - [address] [facility] [address] Work Phone: Creatinine [Mass/Vol] 1.00 mg/dL See Below [facility] Work Phone: Comment on above: Reference Range: 0.5 0 - 1.05 Glucose [Mass/Vol] 128 mg/dL above high threshold 74 - [address] [address] [facility] Work Phone: Potassium [Moles/Vol] 4.2 mmol/L 3.5 - 5.3 [facility] Work Phone: Sodium [Moles/Vol] 137 mmol/L 136 - [address] [facility] [place] [facility] Work Phone: Urea nitrogen [Mass/Vol] 14 mg/dL 6 - [address] [address] [facility] Work Phone: Otheron 01-30-2020 65 {mL/min/1.73m2} >[address] [facility] [place] [facility] Work Phone: Comment on above: CALCULATIONS OF TONE MATED GFR ARE PERFORMED USING THE MDRD STUDY EQUATION FOR THE IDMS-TRACEABLE CREATININE METHODS. CLIN CHEM 2007;53:766-72 54 {mL/min/1.73m2} Abnormal >[address] [facility] [place] [facility] Work Phone: Otheron 01-29-2020 Interpreted by: MBCAKD08/01/20 15:21MRN: [id number] Name: LUMA RIBEIRO STUDY:HIP, UNILATERAL W/PELVIS WHEN PERFORMED 2-3 VIEWS; 01/29/2020 12:25 pm INDICATION:s/p right ROSSANA. COMPARISON:01/16/2020 ORDERING CLINICIAN:TASIA BIRD FINDINGS:Pelvis and right hip, three views Interval right total hip arthroplasty noted without periprostheticfracture or lucency. There is no dislocation. IMPRESSION:Right total hip arthroplasty without immediate complicationsElectronically signed by: RAJIV 01/30/20 15:21 Normal [facility] Work Phone: XR Pelvis 1 or 2 views Please click on the link to view the study images Normal [facility] Work Phone: Coronavirus 2019 RNA by PCR, Screening Asymptomticon 01-27-2020 Coronavirus 2019 RNA by PCR, Screening Asymptomtic NOT DETECTED See Below [facility] Work Phone: Comment on [...] make patient management decisions.Fact sheet for providers: https://www.fda.gov/media/133461/downloadFact sheet for patients: https://www.fda.gov/media/945965/downloadThis test has received FDA Emergency Use Authorization (EUA) and has been verified by [facility] ([facility]). This test is only authorized for the duration of time that circumstances exist to justify the authorization of the emergency use of in vitro diagnostic tests for the detection of SARS-CoV-2 virus and/or diagnosis of COVID-19 infection under section 564(b)(1) of the Act, 21 U.S.C. 360bbb-3(b)(1), unless the authorization is terminated or revoked sooner. [facility] is certified under CLIA-88 as qualified to perform high complexity testing. Testing is performed in the [facility] laboratories located at [address] [place] [address]. Activated Partial Thrombopla stin Timeon 01-20-2020 aPTT Coag (PPP) [Time] 29 {sec} 25 - 35 [facility] Work Phone: Comment on above: THE APTT IS NO LONGE R USED FOR MONITORING UNFRACTIONATED HEPARIN THERAPY. FOR MONITORING HEPARIN THERAPY, USE THE HEPARIN ASSAY. Complete Blood Count + Diffe rentialon 01-20-2020 Basophils (Bld) [#/Vol] 0.04 {x10E9/L} See Below [facility] Work Phone: Comment on above: Reference Range: 0.0 0 - 0.10 Basophils/100 WBC (Bld) 0.5 % 0.0 - 2.0 [facility] Work Phone: Eosinophils (Bld) [#/Vol] 0.09 {x10E9/L} See Below [facility] Work Phone: Comment on above: Reference Range: 0.0 0 - 0.40 Eosinophils/100 WBC (Bld) 1.0 % 0.0 - 6.0 [facility] Work Phone: Erythrocyte distribution width (RBC) [Ratio] 12.9 % See Below [facility] Work Phone: Comment on above: Reference Range: 11. 5 - 14.5 Hematocrit (Bld) [Volume fraction] 44.6 % See Below [facility] Work Phone: Comment on above: Reference Range: 36. 0 - 46.0 Hemoglobin (Bld) [Mass/Vol] 14.5 g/dL See Below [facility] Work Phone: Comment on above: Reference Range: 12. 0 - 16.0 Lymphocytes (Bld) [#/Vol] 3.41 {x10E9/L} above high threshold See Below [facility] Work Phone: Comment on above: Reference Range: 0.8 0 - 3.00 Lymphocytes/100 WBC (Bld) 38.4 % See Below [facility] Work Phone: Comment on above: Reference Range: 13. 0 - 44.0 MCHC (RBC) [Mass/Vol] 32.5 g/dL See Below [facility] Work Phone: [phone] Comment on above: Reference Range: 32. 0 - 36.0 MCV (RBC) [Entitic vol] 100 fL 80 - 100 [facility] Work Phone: Monocytes (Bld) [#/Vol] 0.81 {x10E9/L} above high threshold See Below [facility] Work Phone: Comment on above: Reference Range: 0.0 5 - 0.80 Monocytes/100 WBC (Bld) 9.1 % 2.0 - 10.0 [facility] Work Phone: [phone] Neutrophils (Bld) [#/Vol] 4.49 {x10E9/L} See Below [facility] Work Phone: [phone] Comment on above: Reference Range: 1.6 0 - 5.50 Neutrophils/100 WBC (Bld) 50.7 % See Below [facility] Work Phone: [phone] Comment on above: Reference Range: 40. 0 - 80.0 Platelets (Bld) [#/Vol] 261 {x10E9/L} 150 - 450 [facility] Work Phone: [phone] RBC (Bld) [#/Vol] 4.48 {x10E12/L} See Below [facility] Work Phone: Comment on above: Reference Range: 4.0 0 - 5.20 WBC (Bld) [#/Vol] 8.9 {x10E9/L} 4.4 - 11.3 [facility] Work Phone: [phone] Complete Blood Count + Differential 0.3 % 0.0 - 0.9 [facility] Work Phone: [phone] Comment on above: Immature Granulocyte Count (IG) includes promyelocytes, myelocytes and metamyelocytes but does not include bands. Percent differential counts (%) should be interpreted in the context of the absolute cell counts (cells/L). Fructosamine, Serumon 2019 Fructosamine [Moles/Vol] 265 umol/L 0-285 [facility] Work Phone: Comment on above: Published reference interval for apparently healthy subjectsbetween age 20 and 60 is 205 - 285 umol/L and in a poorlycontrolled diabetic population is 228 - 563 umol/L with amean of 396 umol/L. Hematologyon 01-20-2020 INR Coag (PPP) [Relative time] 1.1 {INR} 0.9 - 1.1 [facility] Work Phone: [phone] PT Coag (PPP) [Time] 13.0 {sec} See Below [facility] Work Phone: [phone] Comment on above: Reference Range: 10. 1 - 13.3 Metabolic Panelon 01-20-2020 ALP [Catalytic activity/Vol] 100 U/L 33 - 136 [facility] Work Phone: [phone] Anion gap [Moles/Vol] 13 mmol/L 10 - 20 [facility] [place] Work Phone: [phone] Bilirubin [Mass/Vol] 0.6 mg/dL 0.0 - 1.2 [facility] [place] Work Phone: [phone] Calcium [Mass/Vol] 9.7 mg/dL 8.6 - 10.[address] [address] [facility] [place] Work Phone: [phone] Chloride [Moles/Vol] 101 mmol/L 98 - 107 [facility] [place] Work Phone: [phone] CO2 [Moles/Vol] 32 mmol/L 21 - 32 -[facility] [place] Work Phone: [phone] Creatinine [Mass/Vol] 1.01 mg/dL See Below - [facility] [place] Work Phone: [phone] Comment on above: Reference Range: 0.5 0 - 1.05 Glucose [Mass/Vol] 88 mg/dL 74 - [address] [facility] [place] Work Phone: [phone] Potassium [Moles/Vol] 3.9 mmol/L 3.5 - 5.3 - [facility] [place] Work Phone: [phone] Protein [Mass/Vol] 7.6 g/dL 6.4 - 8.[address] [address] [facility] [place] Work Phone: [phone] Sodium [Moles/Vol] 142 mmol/L 136 - [address] [facility] [place] Work Phone: [phone] Urea nitrogen [Mass/Vol] 15 mg/dL 6 - 23 [facility] [place] Work Phone: [phone] Otheron 01-20-2020 100 1 -[facility] [place] Work Phone: [phone] 212 1 -[facility] [place] Work Phone: 1 -[facility] [place] Work Phone: [phone] [facility] Work Phone: [phone] [facility] Work Phone: [phone] [facility] Work Phone: [phone] Sinus rhythm with occasional premature ventricular complexes [facility] Work Phone: [phone] [facility] Work Phone: [phone] http://[email or web address] 1:8080/ musescripts/museweb.dll?Ret rieveTestByDateTime?Patient II=[id number]&Date= 0&Time=14%3a54%3a12%3a00&Te stType=ECG&Site=11&OutputTy pe=PDF&Ext=PDF [facility] Work Phone: [phone] [facility] Work Phone: [phone] [facility] Work Phone: [phone] [facility] Work Phone: [phone] [facility] Work Phone: [phone] [facility] Work Phone: [phone] [facility] Work Phone: [phone] Albumin BCP dye [Mass/Vol] 4.4 g/dL 3.4 - 5.0 [facility] Work Phone: [phone] ALT With P-5'-P [Catalytic activity/Vol] 16 U/L 7 - 45 [facility] Work Phone: [phone] Comment on above: Patients treated wit h Sulfasalazine may generate falsely decreased results for ALT. AST With P-5'-P [Catalytic activity/Vol] 23 U/L 9 - 39 [facility] Work Phone: {mL/min/1.73m2} >[address] [facility] Work Phone: [phone] Comment on above: CALCULATIONS OF TONE MATED GFR ARE PERFORMED USING THE MDRD STUDY EQUATION FOR THE IDMS-TRACEABLE CREATININE METHODS. CLIN CHEM 2007;53:766-72 54 {mL/min/1.73m2} Abnormal >[address] [facility] Work Phone: Urinalysison 01-20-2020 Appearance (U) HAZY CLEAR -[facility] Work Phone: [phone] Color (U) YELLOW See Below [facility] Work Phone: [phone] Comment on above: Reference Range: STR AW,YELLOW Glucose Ql (U) Negative NEGATIVE -[facility] Work Phone: [phone] Ketones Ql (U) Negative NEGATIVE -[facility] Work Phone: [phone] Leukocyte esterase Test strip Ql (U) Negative NEGATIVE -[facility] Work Phone: [phone] pH (U) 7.0 [pH] 5.0 - 8.0 -[facility] Work Phone: [phone] Protein (U) [Mass/Vol] Negative NEGATIVE -[facility] Work Phone: [phone] RBC (U) [#/Vol] Negative NEGATIVE -[facility] Work Phone: [phone] Specific gravity (U) [Rel density] 1.019 See Below [facility] Work Phone: [phone] Comment on above: Reference Range: 1.0 05 - 1.035 Urinalysis Negative NEGATIVE -[facility] Work Phone: Urinalysis 2.0 mg/dL above high threshold 0.0 - 1.9 [facility] Work Phone: Comment on above: Due [...] Otheron 01-16-2020 Interpreted by: AGNES ALVARADO01/16/20 13:42MRN: [id number] Name: LUMA RIBEIRO STUDY:HIP, UNILATERAL W/PELVIS WHEN PERFORMED 2-3 VIEWS; Right; 01/16/20201:39 pm INDICATION:pain. ORDERING CLINICIAN:HARSHAL ALVARADO FINDINGS:AP lateral right hip x-ray shows end-stage athitmxecxftvxsgte-nq-ljla arthrosis noted. 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 Electronically signed by: HARSHAL ALVARADO 01/16/20 13:42 Normal [facility] Work Phone: Vital Signs Date Time Vital Sign Value Performing Clinician Facility 2024 15:00-0400 Diastolic blood pressure 90 mm[Hg] Amber Hawley MD Work Phone: [facility] [place] 2024 15:00-0400 Systolic blood pressure 130 mm[Hg] Amber Hawley MD Work Phone: [facility] 2024 14:11-0400 Body height 162.6 cm Amber Hawley MD Work Phone: [facility] [place] 2024 14:11-0400 Body mass index (BMI) [Ratio] 44.97 kg/m2 Amber Hawley MD Work Phone: [facility] 2024 14:11-0400 Body weight 118.84 kg Amber Hawley MD Work Phone: [facility] 2024 14:11-0400 Heart rate 72 /min Amber Hawley MD Work Phone: [facility] [place] 10-16-2024 11:33-0400 Body height 157.5 cm Kamila Pride LOAD TESTER Work Phone: [facility] 10-16-2024 11:33-0400 Body mass index (BMI) [Ratio] 48.47 kg/m2 Kamila Espitiavely LOAD TESTER Work Phone: [facility] 10-16-2024 11:33-0400 Body weight 120.2 kg Kamila Pride LO[employer] TE[employer] Work Phone: [facility] 10-16-2024 11:33-0400 Diastolic blood pressure 101 mm[Hg] Kamila Pride LOAD TESTER Work Phone: [facility] 10-16-2024 11:33-0400 Heart rate 77 /min Kamila Bigg LO[employer] TE[employer] Work Phone: [facility] 10-16-2024 11:33-0400 Respiratory rate 17 /min Kamila Bigg LOAD TE[employer] Work Phone: [facility] 10-16-2024 11:33-0400 SaO2% (BldA) [Mass fraction] 96 % Kamila Espitiavely LOAD TESTER Work Phone: [facility] 10-16-2024 11:33-0400 Systolic blood pressure 182 mm[Hg] Kamila Pride LOAD TESTER Work Phone: [facility] 10-10-2024 15:03-0400 Body height 157.5 cm Alex Alfredo DPM Work Phone: [facility] 10-10-2024 15:03-0400 Body mass index (BMI) [Ratio] 49.02 kg/m2 Alex Alfredo DPM Work Phone: [facility] 10-10-2024 15:03-0400 Body weight 121.56 kg Alex Alfredo DPM Work Phone: [facility] 10-10-2024 15:03-0400 Respiratory rate 18 /min Alex Alfredo DPM Work Phone: [facility] 09-18-2024 11:00-0400 Body height 162.[address] 09-18-2024 11:00-0400 Body mass index (BMI) [Ratio] 46.17 kg/m2 [address] 09-18-2024 11:00-0400 Body weight 122.[address] 09-18-2024 11:00-0400 Diastolic blood pressure 86 mm[Hg] [address] 09-18-2024 11:00-0400 Systolic blood pressure 124 mm[Hg] [address] 09-18-2024 10:44-0400 Diastolic blood pressure 78 mm[Hg] [address] 09-18-2024 10:44-0400 Heart rate 67 /min [address] 09-18-2024 10:44-0400 Systolic blood pressure 122 mm[Hg] [address] 08-19-2024 11:24-0400 Body height 157.5 cm Roc Steele MD Work Phone: [facility] 08-19-2024 11:24-0400 Body mass index (BMI) [Ratio] 49.02 kg/m2 Roc Steele MD Work Phone: [facility] 08-19-2024 11:24-0400 Body weight 121.56 kg Roc Steele MD Work Phone: [facility] 08-19-2024 11:24-0400 Diastolic blood pressure 86 mm[Hg] Roc Steele MD Work Phone: [facility] 08-19-2024 11:24-0400 Heart rate 89 /min Roc Steele MD Work Phone: [facility] 08-19-2024 11:24-0400 SaO2% (BldA) [Mass fraction] 96 % Roc Steele MD Work Phone: [facility] 08-19-2024 11:24-0400 Systolic blood pressure 138 mm[Hg] Roc Steele MD Work Phone: [facility] 08-01-2024 14:45-0400 Body height 157.5 cm Alex Alfredo DPM Work Phone: [facility] 08-01-2024 14:45-0400 Body mass index (BMI) [Ratio] 48.65 kg/m2 Alex Alfredo DPM Work Phone: [facility] 08-01-2024 14:45-0400 Body weight 120.66 kg Alex Alfredo DPM Work Phone: [facility] 08-01-2024 14:45-0400 Respiratory rate 16 /min Alex Alfredo DPM Work Phone: [facility] 08-01-2024 13:31-0400 Body height 157.5 cm Kamila Pride LOAD TESTER Work Phone: [facility] 08-01-2024 13:31-0400 Body mass index (BMI) [Ratio] 48.73 kg/m2 Kamila Pride LOAD TESTER Work Phone: [facility] 08-01-2024 13:31-0400 Body weight 120.84 kg Kamila Pride LOAD TESTER Work Phone: [facility] 08-01-2024 13:31-0400 Diastolic blood pressure 82 mm[Hg] aKmila Pride LOAD TESTER Work Phone: [facility] 08-01-2024 13:31-0400 Heart rate 88 /min Kamila Pride LOAD TESTER Work Phone: [facility] 08-01-2024 13:31-0400 Respiratory rate 17 /min Kamila Pride LOAD TESTER Work Phone: [facility] 08-01-2024 13:31-0400 SaO2% (BldA) [Mass fraction] 99 % Kamila Pride LOAD TESTER Work Phone: [facility] 08-01-2024 13:31-0400 Systolic blood pressure 134 mm[Hg] Kamila Pride LOAD TESTER Work Phone: [facility] 07-15-2024 11:25-0400 Body height 162.6 cm Amber Hawley MD Work Phone: [facility] 07-15-2024 11:25-0400 Body mass index (BMI) [Ratio] 46.17 kg/m2 Amber Hawley MD Work Phone: [facility] 07-15-2024 11:25-0400 Body weight 122.02 kg Amber Hawley MD Work Phone: [facility] 07-15-2024 11:25-0400 Diastolic blood pressure 88 mm[Hg] Amber Hawley MD Work Phone: [facility] 07-15-2024 11:25-0400 Heart rate 93 /min Amber Hawley MD Work Phone: [facility] 07-15-2024 11:25-0400 Systolic blood pressure 128 mm[Hg] Amber Hawley MD Work Phone: [facility] 07-11-2024 12:59-0400 Body height 157.5 cm Kamila Pride LOAD TESTER Work Phone: [facility] 07-11-2024 12:59-0400 Body mass index (BMI) [Ratio] 49.93 kg/m2 Kamila Pride LOAD TESTER Work Phone: [facility] 07-11-2024 12:59-0400 Body weight 123.83 kg Kamila Pride LOAD TESTER Work Phone: [facility] 07-11-2024 12:59-0400 Diastolic blood pressure 80 mm[Hg] Kamila Pride LOAD TESTER Work Phone: [facility] 07-11-2024 12:59-0400 Heart rate 87 /min Kamila Pride LOAD TESTER Work Phone: [facility] 07-11-2024 12:59-0400 SaO2% (BldA) [Mass fraction] 97 % Kamila Pride LOAD TESTER Work Phone: [facility] 07-11-2024 12:59-0400 Systolic blood pressure 130 mm[Hg] Kamila Bigg LOAD TESTER Work Phone: [facility] 07-03-2024 11:31-0500 Body height 157.5 cm Kamila Pride LOAD TESTER Work Phone: [facility] 07-03-2024 11:31-0500 Body mass index (BMI) [Ratio] 50.22 kg/m2 Kamilaolivia Pride LOAD TESTER Work Phone: [facility] 07-03-2024 11:31-0500 Body weight 124.56 kg Kamila Pride LOAD TESTER Work Phone: [facility] 07-03-2024 11:31-0500 Diastolic blood pressure 82 mm[Hg] Kamila Pride LOAD TESTER Work Phone: [facility] 07-03-2024 11:31-0500 Heart rate 74 /min Kamila Pride LOAD TESTER Work Phone: [facility] 07-03-2024 11:31-0500 Respiratory rate 17 /min Kamila Bigg LOAD TESTER Work Phone: [facility] 07-03-2024 11:31-0500 SaO2% (BldA) [Mass fraction] 94 % Kamila Pride LOAD TESTER Work Phone: [facility] 07-03-2024 11:31-0500 Systolic blood pressure 136 mm[Hg] Kamila Pride LOAD TESTER Work Phone: [facility] 06-11-2024 11:07-0500 Body height 157.5 cm Kamila Bigg LOAD TESTER Work Phone: [facility] 06-11-2024 11:07-0500 Body mass index (BMI) [Ratio] 49.2 kg/m2 Kamila Bigg LOAD TESTER Work Phone: [facility] 06-11-2024 11:07-0500 Body weight 122.02 kg Kamila Pride LOAD TESTER Work Phone: [facility] 06-11-2024 11:07-0500 Diastolic blood pressure 78 mm[Hg] Kamila Espitiavely LOAD TESTER Work Phone: [facility] 06-11-2024 11:07-0500 Heart rate 76 /min Kamila Bigg LOAD TESTER Work Phone: [facility] 06-11-2024 11:07-0500 Respiratory rate 17 /min Kamila Alpena LOAD TESTER Work Phone: [facility] 06-11-2024 11:07-0500 SaO2% (BldA) [Mass fraction] 99 % Kamila Bigg LOAD TESTER Work Phone: [facility] 06-11-2024 11:07-0500 Systolic blood pressure 134 mm[Hg] Kamila Espitiavely LOAD TESTER Work Phone: [facility] 05-23-2024 14:37-0500 Body height 157.5 cm Alex Alfredo DPM Work Phone: [facility] 05-23-2024 14:37-0500 Body mass index (BMI) [Ratio] 50.3 kg/m2 Alex Alfredo DPM Work Phone: [facility] 05-23-2024 14:37-0500 Body weight 124.74 kg Alex Alfredo DPM Work Phone: [facility] 05-23-2024 14:37-0500 Respiratory rate 18 /min Alex Alfredo DPM Work Phone: [facility] 05-22-2024 10:11-0500 Body height 157.5 cm Kamila Espitiavely LOAD TESTER Work Phone: [facility] 05-22-2024 10:11-0500 Body mass index (BMI) [Ratio] 50.33 kg/m2 Kamila Pride LOAD TESTER Work Phone: [facility] 05-22-2024 10:11-0500 Body weight 124.83 kg Kamila Pride LOAD TESTER Work Phone: [facility] 05-22-2024 10:11-0500 Diastolic blood pressure 80 mm[Hg] Kamila Pride LOAD TESTER Work Phone: [facility] 05-22-2024 10:11-0500 Heart rate 77 /min Kamila Bigg LOAD TESTER Work Phone: [facility] 05-22-2024 10:11-0500 Respiratory rate 18 /min Kamila Bigg LOAD TESTER Work Phone: [facility] 05-22-2024 10:11-0500 SaO2% (BldA) [Mass fraction] 99 % Kamila Alpena LOAD TESTER Work Phone: [facility] 05-22-2024 10:11-0500 Systolic blood pressure 128 mm[Hg] Kamila Alpena LOAD TESTER Work Phone: [facility] 05-15-2024 11:32-0500 Body height 157.5 cm Kamila Alpena LOAD TESTER Work Phone: [facility] 05-15-2024 11:32-0500 Body mass index (BMI) [Ratio] 48.54 kg/m2 Kamila Bigg LOAD TESTER Work Phone: [facility] 05-15-2024 11:32-0500 Body weight 120.39 kg Kamila Bigg LOAD TESTER Work Phone: [facility] 05-15-2024 11:32-0500 Diastolic blood pressure 76 mm[Hg] Kamila Alpena LOAD TESTER Work Phone: [facility] 05-15-2024 11:32-0500 Heart rate 97 /min Kamila Bigg LOAD TESTER Work Phone: [facility] 05-15-2024 11:32-0500 Respiratory rate 18 /min Kamila Bigg LOAD TESTER Work Phone: [facility] 05-15-2024 11:32-0500 SaO2% (BldA) [Mass fraction] 98 % Kamila Bigg LOAD TESTER Work Phone: [facility] 05-15-2024 11:32-0500 Systolic blood pressure 126 mm[Hg] Kamila Bigg LOAD TESTER Work Phone: [facility] 05-07-2024 10:53-0500 Body height 157.5 cm Kamila Alpena LOAD TESTER Work Phone: [facility] 05-07-2024 10:53-0500 Body mass index (BMI) [Ratio] 48.87 kg/m2 Kamila Alpena LOAD TESTER Work Phone: [facility] 05-07-2024 10:53-0500 Body weight 121.2 kg Kamila Alpena LOAD TESTER Work Phone: [facility] 05-07-2024 10:53-0500 Diastolic blood pressure 82 mm[Hg] Kamila Bigg LOAD TESTER Work Phone: [facility] 05-07-2024 10:53-0500 Heart rate 88 /min Kamila Alpena LOAD TESTER Work Phone: [facility] 05-07-2024 10:53-0500 Respiratory rate 18 /min Kamila Alpena LOAD TESTER Work Phone: [facility] 05-07-2024 10:53-0500 SaO2% (BldA) [Mass fraction] 95 % Kamila Bigg LOAD TESTER Work Phone: [facility] 05-07-2024 10:53-0500 Systolic blood pressure 130 mm[Hg] Kamila Alpena LOAD TESTER Work Phone: [facility] 04-03-2024 08:32-0500 Body height 157.5 cm Kamila Bigg LOAD TESTER Work Phone: [facility] 04-03-2024 08:32-0500 Body mass index (BMI) [Ratio] 49.6 kg/m2 Kamila Bigg LOAD TESTER Work Phone: [facility] 04-03-2024 08:32-0500 Body weight 123.02 kg Kamila Alpena LOAD TESTER Work Phone: [facility] 04-03-2024 08:32-0500 Diastolic blood pressure 80 mm[Hg] Kamila Alpena LOAD TESTER Work Phone: [facility] 04-03-2024 08:32-0500 Heart rate 74 /min Kamila Alpena LOAD TESTER Work Phone: [facility] 04-03-2024 08:32-0500 Respiratory rate 17 /min Kamila Bigg LOAD TESTER Work Phone: [facility] 04-03-2024 08:32-0500 SaO2% (BldA) [Mass fraction] 98 % Kamila Pride LOAD TESTER Work Phone: [facility] 04-03-2024 08:32-0500 Systolic blood pressure 126 mm[Hg] Kamila Pride LOAD TESTER Work Phone: [facility] 03-05-2024 11:19-0500 Body height 157.5 cm Kamila Pride LOAD TESTER Work Phone: [facility] 03-05-2024 11:19-0500 Body mass index (BMI) [Ratio] 50.85 kg/m2 Kamila Pride LOAD TESTER Work Phone: [facility] 03-05-2024 11:19-0500 Body weight 126.1 kg Kamila Pride LOAD TESTER Work Phone: [facility] 03-05-2024 11:19-0500 Diastolic blood pressure 76 mm[Hg] Kamila Pride LOAD TESTER Work Phone: [facility] 03-05-2024 11:19-0500 Heart rate 102 /min Kamila Pride LOAD TESTER Work Phone: [facility] 03-05-2024 11:19-0500 SaO2% (BldA) [Mass fraction] 98 % Kamila Pride LOAD TESTER Work Phone: [facility] 03-05-2024 11:19-0500 Systolic blood pressure 134 mm[Hg] Kamila Pride LOAD TESTER Work Phone: [facility] 02-22-2024 14:09-0400 Body height 157.5 cm Alex Alfredo DPM Work Phone: [facility] 02-22-2024 14:09-0400 Body mass index (BMI) [Ratio] 50.85 kg/m2 Alex Alfredo DPM Work Phone: [facility] 02-22-2024 14:09-0400 Body weight 126.1 kg Alex Alfredo DPM Work Phone: [facility] 02-22-2024 14:09-0400 Diastolic blood pressure 80 mm[Hg] Alex Brown DPM Work Phone: [facility] 02-22-2024 14:09-0400 Heart rate 82 /min Alex Brown DPM Work Phone: [facility] 02-22-2024 14:09-0400 Systolic blood pressure 126 mm[Hg] Alex Brown DPM Work Phone: [facility] 06-15-2023 14:42-0500 Body height 157.5 cm Alex Brown DPM Work Phone: [facility] 06-15-2023 14:42-0500 Body mass index (BMI) [Ratio] 50.48 kg/m2 Alex Brown DPM Work Phone: [facility] 06-15-2023 14:42-0500 Body weight 125.19 kg Alex Brown DPM Work Phone: [facility] 06-15-2023 14:42-0500 Diastolic blood pressure 82 mm[Hg] Alex Brown DPM Work Phone: [facility] 06-15-2023 14:42-0500 Heart rate 84 /min Alex Brown DPM Work Phone: [facility] 06-15-2023 14:42-0500 Systolic blood pressure 133 mm[Hg] Alex Brown DPM Work Phone: [facility] 06-01-2023 15:33-0500 Body height 157.5 cm Alex Brown DPM Work Phone: [facility] 06-01-2023 15:33-0500 Body mass index (BMI) [Ratio] 50.48 kg/m2 Alex Brown DPM Work Phone: [facility] 06-01-2023 15:33-0500 Body weight 125.19 kg Alex Brown DPM Work Phone: [facility] 06-01-2023 15:33-0500 Diastolic blood pressure 80 mm[Hg] Alex Alfredo DPM Work Phone: [facility] 06-01-2023 15:33-0500 Heart rate 79 /min Alex Alfredo DPM Work Phone: [facility] 06-01-2023 15:33-0500 Systolic blood pressure 130 mm[Hg] Alex Alfredo DPM Work Phone: [facility] 01-16-2020 15:36-0400 BMI (Body Mass Index) 46.35 kg/m2 Tasia [facility] [place] Work Phone: 01-16-2020 15:36-0400 Body weight 122.47 kg Tasia [facility] [facility] [place] Work Phone: 01-16-2020 15:36-0400 BSA (Body Surface Area) 2.22 m2 Tasia [facility] [facility] [place] Work Phone: 01-16-2020 15:36-0400 Height 162.56 cm Tasia [facility] [place] Work Phone: Encounters Encounter Date Encounter Type Care Provider Facility Start: 01-23-2025 End: 01-23-2025 Clinisync Result Encounter Generic External Data Provider [facility] External Department Unsolicited Start: 01-23-2025 End: 01-23-2025 Clinisync Result Encounter Generic External Data Provider [facility] External Department Unsolicited Start: 2024 End: 2024 Office outpatient visit 25 minutes Amber Hawley MD Work Phone: [facility] Comment on above: Encounter to discuss test results (Primary Dx); Uses roller walker; Palpitations; Mixed hyperlipidemia; Chest discomfort; CARO on CPAP; Paroxysmal supraventricular tachycardia; Never smoked cigarettes; Body mass index (BMI) 40.0-44.9, adult (Multi) Start: 2024 End: 2024 ambulatory [facility] Start: 11-04-2024 End: 11-04-2024 ambulatory Daron Sanchez MD Facility:[facility] Start: 10-16-2024 End: 10-16-2024 Bamboo flowsheet Kamila Pride LOAD TESTER Work Phone: [facility] Start: 10-16-2024 End: 10-16-2024 Bamboo flowsheet Kamila Pride LOAD TESTER Work Phone: [facility] Start: 10-16-2024 End: 10-16-2024 Office outpatient visit 15 minutes Kamila Pride LOAD TESTER Work Phone: [facility] Comment on above: Acute low back pain without sciatica, unspecified back pain laterality (Primary Dx) Start: 10-16-2024 End: 10-18-2024 Refill Roc Steele MD Work Phone: [facility] Comment on above: 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 Start: 10-14-2024 End: 10-14-2024 ambulatory Daron Sanchez MD Facility:[facility] Start: 10-10-2024 End: 10-10-2024 Patient encounter [...] Department Unsolicited Start: 09-19-2024 End: 09-19-2024 ambulatory [facility] Start: 09-18-2024 End: 09-18-2024 Subsequent hospital visit by physician Jessica Dobbins Admin Room 1 [facility] Comment on above: Lightheadedness; Chest discomfort; Palpitations; Mixed hyperlipidemia Paroxysmal supravent ricular tachycardia; Abnormal EKG; Palpitations Start: 09-18-2024 End: 09-18-2024 ambulatory [facility] Start: 09-16-2024 End: 09-16-2024 ambulatory Daron Sanchez MD Facility:[facility] Start: 09-10-2024 End: 09-11-2024 Refill Kamila Pride LOAD TESTER Work Phone: [facility] Comment on [...] 08-01-2024 End: 08-01-2024 Bamboo flowsheet Kamila Pride LOAD TESTER Work Phone: [facility] Start: 08-01-2024 End: 08-01-2024 Bamboo flowsheet Kamila Pride LOAD TESTER Work Phone: [facility] Start: 08-01-2024 End: 08-01-2024 Office outpatient visit 25 minutes Kamila Pride LOAD TESTER Work Phone: [facility] Comment on above: SOB (shortness of br eath) (Primary Dx); Chronic cough; Lumbosacral spondylosis without myelopathy; Seasonal allergic rhinitis, unspecified trigger; Age-related osteoporosis without current pathological fracture (CMS/HCC) Start: 08-01-2024 End: 08-01-2024 ambulatory KAMILA PRIDE Not Available Start: 07-26-2024 End: 07-26-2024 ambulatory KAMILA PRIDE Not Available Start: 07-18-2024 End: 07-18-2024 Clinisync Result Encounter Roc Steele MD Work Phone: [facility] External Department Unsolicited Start: 07-18-2024 End: 07-18-2024 Clinisync Result Encounter Roc Steele MD Work Phone: [facility] External Department Unsolicited Start: 07-15-2024 End: 07-15-2024 Office consultation new/estab patient 60 min Amber Hawely MD Work Phone: [facility] Comment on above: Encounter to [facility] with new doctor; Paroxysmal supraventricular tachycardia (CMS-HCC); Abnormal EKG; Lightheadedness; Chest discomfort; Palpitations; Primary hypertension; Stenosis of carotid artery, unspecified laterality; Mixed hyperlipidemia; Stage 3a chronic kidney disease (Multi); Gastroesophageal reflux disease without esophagitis; At high risk for falls; Uses roller walker; Severe obesity (BMI >= 40) (Multi); Never smoked cigarettes Start: 07-15-2024 End: 07-15-2024 ambulatory [facility] Start: 07-11-2024 End: 07-11-2024 Assay of hemosiderin, quant Kamila Pride LOAD TESTER Work Phone: [facility] Start: 07-11-2024 End: 07-11-2024 Patient encounter procedure Kamila Pride LOAD TESTER Work Phone: [facility] Comment on above: Insomnia, unspecifie d [...] Start: 07-03-2024 End: 07-03-2024 Bamboo flowshien Pride LOAD TESTER Work Phone: [facility] Start: 07-03-2024 End: 07-03-2024 Bamboo flowshien Pride LOAD TESTER Work Phone: [facility] Start: 07-03-2024 End: 07-03-2024 Office outpatient visit 25 minutes Kamila Pride LOAD TESTER Work Phone: [facility] Comment on above: Paroxysmal supravent ricular tachycardia (CMS/HCC) (Primary Dx); Primary insomnia; Acute congestive heart failure, unspecified heart failure type (CMS/HCC); Stage 3b chronic kidney disease (HCC) (CMS/HCC); Weakness; Other fatigue; Pain of right hip; Fall, initial encounter Start: 07-03-2024 End: 07-03-2024 ambulatory KAMILA PRIDE Not Available Start: 06-11-2024 End: 06-11-2024 Bamboo flowshien Pride LOAD TESTER Work Phone: [facility] Start: 06-11-2024 End: 06-11-2024 Bamboo flowshien Pride LOAD TESTER Work Phone: [facility] Start: 06-11-2024 End: 06-11-2024 Office outpatient visit 25 minutes Kamila Pride LOAD TESTER Work Phone: [facility] Comment on [...] 05-22-2024 End: 05-22-2024 Bamboo flowsheet Kamila Pride LOAD TESTER Work Phone: [facility] Start: 05-22-2024 End: 05-22-2024 Bamboo flowsheet Kamila Pride LOAD TESTER Work Phone: [facility] Start: 05-22-2024 End: 05-22-2024 Office outpatient visit 25 minutes Kamila Pride LOAD TESTER Work Phone: [facility] Comment on above: Stage 3b chronic kid javon disease (HCC) (CMS/HCC) (Primary Dx); Benign essential hypertension (CMS/HCC); Hypomagnesemia; Pneumonia of both lungs due to infectious organism, unspecified part of lung Start: 05-22-2024 End: 05-22-2024 ambulatory KAMILA PRIDE Not Available Start: 05-16-2024 End: 05-16-2024 Clinisync Result Encounter Kamila Pride NP Work Phone: [facility] External Department Unsolicited Start: 05-16-2024 End: 05-16-2024 Clinisync Result Encounter Kamila Pride LOAD TESTER Work Phone: [facility] External Department Unsolicited Start: 05-15-2024 End: 05-15-2024 Office outpatient visit 25 minutes Kamila Pride LOAD TESTER Work Phone: [facility] Comment on [...] Office outpatient visit 25 minutes Kamila Pride LOAD TESTER Work Phone: [facility] Comment on [...] Start: 04-29-2024 End: 04-29-2024 ambulatory Mala Sapp Facility:[facility] Start: 04-15-2024 End: 04-16-2024 Refill Kamila Pride LOAD TESTER Work Phone: [facility] Comment on above: Primary insomnia Start: 04-04-2024 End: 04-04-2024 Orders Only Kamila Pride LOAD TESTER Work Phone: [facility] Comment on above: Acute pulmonary omid a (CMS/HCC) (Primary Dx); Hypokalemia Start: 04-03-2024 End: 04-03-2024 Bamboo flowsheet Kamila Pride LOAD TESTER Work Phone: [facility] Start: 04-03-2024 End: 04-03-2024 Bamboo flowsheet Kamila Pride LOAD TESTER Work Phone: [facility] Start: 04-03-2024 End: 04-03-2024 ambulatory KAMILA PRIDE Not Available Start: 04-03-2024 End: 04-03-2024 Office outpatient visit 25 minutes Kamila Pride LOAD TESTER Work Phone: [facility] Comment on above: Acute cough (Primary Dx); Rib pain; Fall, initial encounter; Shortness of breath; Lumbosacral spondylosis without myelopathy; Pain of right hand; Right wrist pain; Acute non-recurrent sinusitis of other sinus Start: 04-03-2024 End: 04-03-2024 ambulatory KAMILA PRIDE Not Available Start: 03-07-2024 End: 03-07-2024 Bamboo flowsheet Rejijean-claude Dugan DO Work Phone: [facility] [employer] [address] Start: 03-07-2024 End: 03-07-2024 Bamboo flowsheet Waqas Dixonett DO Work Phone: [facility] [employer] [address] Start: 03-07-2024 End: 03-07-2024 Patient encounter procedure Waqas Dugan DO Work Phone: [facility] [employer] [address] Comment on above: Carpal tunnel syndro me on left (Primary Dx) Start: 03-07-2024 End: 03-07-2024 ambulatory WAQAS DUGAN Not Available Start: 03-05-2024 End: 03-05-2024 Bamboo flowsheet Kamila Pride LOAD TESTER Work Phone: [facility] Start: 03-05-2024 End: 03-05-2024 Bamboo flowsheet Kamila Pride LOAD TESTER Work Phone: [facility] Start: 03-05-2024 End: 03-05-2024 Office outpatient visit 25 minutes Kamila Pride LOAD TESTER Work Phone: [facility] Comment on above: Cellulitis of finger of left hand (Primary Dx); Flu vaccine need; Numbness of hand; Encounter for screening mammogram for malignant neoplasm of breast; Lymphadenopathy; Axillary pain, left; Ankylosing spondylitis of thoracic region ([facility]) Start: 03-05-2024 End: 03-05-2024 ambulatory KAMILA PRIDE [...] Comment on above: Benign essential hyp ertension ([facility]) Start: 12-14-2023 End: 12-14-2023 ambulatory ALEX ALFREDO [...] 10-04-2022 Patient encounter procedure [facility] Work Phone: [facility] [place] Work Phone: Start: 10-04-[address] Roc Steele II Facility:[id number] Start: 09-05-2022 End: 09-05-[address] SARABJIT CORNEJO . Facility:[facility] Start: 09-03-2022 End: 09-03-2022 ambulatory SASHA DUTTA . Facility:[facility] Start: 06-06-2022 End: 06-07-[address] ROC STEELE Facility:[facility] Start: 12-16-2020 Patient encounter procedure Mone Weiss MD Work Phone: [facility] [place] Work Phone: Start: 11-25-2020 Chart Update Tasia Crawford Work Phone: [facility] [place] Work Phone: Start: 10-15-2020 Patient encounter procedure Carmen Bird MD Work Phone: [facility] [place] Work Phone: Start: 02-13-2020 Patient encounter procedure Tasia Bird [facility] [place] Work Phone: Start: 01-16-2020 Patient encounter procedure Tasia Bird [facility] [place] Work Phone: Procedures Date Procedure Procedure Detail Performing Clinician Start: 01-23-2025 XR ANKLE LT MIN 3V Gene raji External Data Provider Start: 10-01-2024 MR LUMBAR SPINE WO CON [...] 07-11-2024 Hemoglobin glycosyla isabel a1c Kamila Pride LOAD TESTER Work Phone: Start: 05-16-2024 ALL BASIC METABOLIC PANEL Kamila Pride LOAD TESTER Work Phone: Start: 05-12-2024 BLOOD CULTURE 1 Generic External Data Provider Start: 03-07-2024 End: 03-07-2024 Needle emg ea extremty w/paraspinl area complete Waqas Dugan DO Work Phone: Implantation of join t prosthesis Tasia Bird Plan of Treatment Date Care Activity Detail Author Start: 07-26-2029 Lipid panel Lipid Panel [facility] Start: 07-26-2026 Screening for osteoporosis Bone Density Scan [facility] Start: 09-18-2025 Echocardiography Echocardiogram [facility] Start: 05-16-2025 End: 05-16-2025 Patient encounter procedure 05/16/2025 2:00 PM EST Office Visit [facility] [address] [facility] [address] [place] [id number] Amber Hawley MD [address] [facility] [address] [place], [place] [id number] [facility] Start: 12-30-2024 Influenza vaccination Influenza Vaccine (#1) [facility] Start: 12-19-2024 End: 12-19-2024 Patient encounter procedure 12/19/2024 3:00 PM EDT Procedure Visit [facility] [address] [place] [id number] Alex Alfredo DPM [address] [facility] [address] [place] [address] [facility] Start: 11-20-2024 End: 11-20-2024 Professional / ancillary services management 11/20/2024 2:00 PM EDT Ancillary Procedure [address] [address] [facility] Start: 2024 End: 2024 Patient encounter procedure 2024 2:15 PM EDT Office Visit [address] [address] Amber Hawley MD [address] [facility] 130 [place], [place] [id number] [facility] Start: 2024 End: 2026 Holter monitor study Holter Or Event Java Application Developer Cardiac Services Routine Palpitations Expected: 2024 (Approximate), Expires: 2026 [facility] Service Area Work Phone: Comment on above: Expected: 2024 (Approximate), Expi res: 2026 Start: 11-04-2024 End: 11-04-2024 Patient encounter procedure 11/04/2024 2:30 PM EDT Office Visit [address] [address] Amber Hawley MD [address] [facility] 130 [place] [address] [facility] Start: 10-30-2024 End: 10-30-2024 Patient encounter procedure 10/30/2024 11:30 AM EDT Office Visit [facility] [address] [facility] [address] [place] [phone] Kamila Pride, LOAD TESTER [address] [place] [address] [facility] Start: 10-16-2024 End: 10-16-2024 Patient encounter procedure [facility] Comment on above: Arrived Start: 10-10-2024 End: 10-10-2024 Patient encounter procedure 10/10/2024 3:00 PM EDT Procedure Visit [facility] [address] [facility] [address] [place] [phone] Alex Alfredo, DPRen 3006 [facility] 5 [place] [address] [facility] Start: 09-19-2024 End: 09-19-2024 Professional / ancillary services management 09/19/2024 1:00 PM EDT Ancillary Procedure [facility] [address] [place] [address] [address] [place] [address] [facility] Start: 09-19-2024 End: 09-19-2024 Patient encounter procedure [facility] Start: 09-19-2024 Subsequent hospital visit by physician 09/19/2024 11:30 AM EDT Hospital Encounter [facility] 703 [facility] [address] [place] [phone] [facility]a [facility] Start: 09-18-2024 End: 09-18-2024 Patient encounter procedure [facility] Start: 08-01-2024 End: 08-01-2024 Patient encounter procedure [facility] Comment on above: Arrived Start: 07-23-2024 End: 07-23-2024 Professional / ancillary services management 07/23/2024 11:30 AM EDT Ancillary Procedure [facility] [address] [facility] [address] [place] [phone] [facility] Start: 07-15-2024 End: 07-15-2025 Holter monitor study Holter Or Event Java Application Developer Cardiac Services Routine Paroxysmal supraventricular tachycardia (CMS-HCC) Abnormal EKG Lightheadedness Chest discomfort Palpitations Expected: 07/15/2024 (Approximate), Expires: 07/15/2025 [facility] Work Phone: Comment on above: Expected: 07/15/2024 (Approximate), Expi res: 07/15/2025 Start: 07-15-2024 End: 07-15-2026 NM Heart Perfusion W stress and W radionuclide IV Nuclear Stress Test Cardiac Nuclear Medicine Routine Lightheadedness Chest discomfort Palpitations Mixed hyperlipidemia Expected: 07/15/2024 (Approximate), Expires: 07/15/2026 [facility] Work Phone: Comment on above: Expected: 07/15/2024 [...] Decreased estrogen level Expected: 07/11/2024, Expires: 07/11/2025 [facility] [employer] Work Phone: Comment on above: Expected: 07/11/2024, Expires: Start: 07-11-2024 End: 07-11-2025 Lipid 1996 panel - Serum or Plasma Lipid panel Lab Routine Hyperlipidemia, unspecified hyperlipidemia type (CMS/HCC) Medicare annual wellness visit, subsequent Expected: 07/11/2024 (Approximate), Expires: 07/11/2025 [facility] Comment on above: Expected: 07/11/2024 (Approximate), Expi res: 07/11/2025 Start: 07-11-2024 End: 07-11-2025 Microalbumin/Creatinine panel in random Urine Microalbumin / creatinine, urine ratio Lab Routine IGT (impaired glucose tolerance) Expected: 07/11/2024 (Approximate), Expires: 07/11/2025 [facility] Comment on above: Expected: 07/11/2024 (Approximate), Expi res: 07/11/2025 Start: 07-11-2024 End: 07-11-2024 Patient encounter procedure 07/11/2024 1:00 PM EDT Office Visit [facility] [address] [place] [phone] Kamila Pride LOAD TESTER [address] [place] [address] [facility] Start: 07-06-2024 Medicare Annual Wellness Visit Medicare Annual Wellness Visit (AWV) [facility] Start: 07-05-2024 Medicare Annual Wellness (AWV) Medicare Annual Wellness (AWV) [facility] Start: 07-03-2024 End: 07-03-2025 Comprehensive metabolic 2000 panel - Serum or Plasma Comprehensive metabolic panel Lab Routine Stage 3b chronic kidney disease (HCC) (CMS/HCC) Expected: 07/03/2024 (Approximate), Expires: 07/03/2025 [facility] Work Phone: Comment on above: Expected: 07/03/2024 (Approximate), Expi res: 07/03/2025 Start: 07-03-2024 End: 07-03-2025 Magnesium [Mass/volume] in Serum or Plasma Magnesium Lab Routine Stage 3b chronic kidney disease (HCC) (CMS/HCC) Weakness Other fatigue Expected: 07/03/2024 (Approximate), Expires: 07/03/2025 [facility] Comment on above: Expected: 07/03/2024 (Approximate), [...] Visit [facility] [address] [facility] [address] [place] [address] Kamila Pride NP [address] [facility] [address] [place] [address] Arrived [facility] Comment on above: Arrived Start: 06-11-2024 End: 06-11-2025 Natriuretic peptide B [Mass/volume] in Blood B-type natriuretic peptide Lab Routine Acute congestive heart failure, unspecified heart failure type ([facility]) Expected: 06/11/2024 (Approximate), Expires: 06/11/2025 [facility] Work Phone: Comment on above: Expected: 06/11/2024 (Approximate), Expi res: 06/11/2025 Start: 06-11-2024 End: 06-11-2024 Patient encounter procedure 06/11/2024 11:00 AM EST Office Visit [facility] [address] [facility] [address] [place] [address] Kamila Pride NP [address] [facility] [address] [place] [address] Arrived [facility] Comment on above: Arrived Start: 05-23-2024 End: 05-23-2024 Patient encounter procedure 05/23/2024 2:40 PM EST Procedure Visit [facility] [address] [facility] 120 [place] [address] Alex Alfredo DPM [address] [address] [facility] Start: 05-22-2024 End: 05-22-2025 CBC panel - Blood by Automated count CBC Lab Routine Stage 3b chronic kidney disease (HCC) ([facility]/HCC) Expected: 05/22/2024 (Approximate), Expires: 05/22/2025 [facility] [...] [address] [place] [address] Kamila Pride LOAD TESTER [address] [place] [address] Arrived [facility] Comment on above: Arrived Start: 05-16-2024 End: 05-16-2024 Patient encounter procedure 05/16/2024 1:00 PM EST Office Visit [facility] [address] [place] [address] Kamila Pride LOAD TESTER [address] [place] [address] [facility] Start: 05-15-2024 End: 05-15-2025 [...] [address] [place] [address] Kamila Pride, LOAD TESTER [address] [place] [address] [facility] Start: 05-14-2024 End: 05-14-2024 Patient encounter procedure 05/14/2024 11:00 AM EST Office Visit [facility] [address] [place] [address] Kamila Pride, LOAD TESTER [address] [place] [address] [facility] Start: 05-02-2024 End: 05-02-2024 Patient encounter procedure 05/02/2024 2:50 PM EST Procedure Visit [facility] [address] [place] [address] Alex Alfredo, DPRen 3006 [facility] 5 [place], [place] [id number] [facility] Start: 04-03-2024 End: 04-03-2025 [...] [address] [place] [address] Kamila Pride, LOAD TESTER [address] [place] [address] Arrived [facility] Comment on above: Arrived Start: 03-07-2024 End: 03-07-2024 Patient encounter procedure 03/07/2024 11:00 AM EST Procedure Visit [facility] [address] [place] [phone] Waqas Dugan DO [address] [place] [address] Numbness of hand [facility] [address] Comment on above: Numbness of [...] Visit [facility] [address] [facility] 110 [place] [address] Kamila Pride NP [address] [facility] [address] [place] [address] [facility] Start: 02-22-2024 End: 02-22-2024 Patient encounter procedure [facility] Comment on above: Pain due to onychomycosis of toenails of both feet (Primary Dx) Start: 01-31-2024 Influenza vaccination Influenza Vaccine (#1) [facility] Comment on above: Postponed from 12/31/2023 (Other Medical Reasons) Start: 12-31-2023 COVID-19 Vaccine ( season) COVID-19 Vaccine () [facility] Start: 12-31-2023 Influenza vaccination Influenza Vaccine (#1) [facility] Start: 07-27-2023 End: 07-27-2023 Patient encounter procedure 07/27/2023 3:30 PM EDT Procedure Visit [facility] [address] [facility] [address] [place] [address] Alex Alfredo, EJM [address] [address] [facility] Start: 06-30-2023 Medicare Annual Wellness (AWV) Medicare Annual Wellness (AWV) [facility] Start: 06-29-2023 End: 06-29-2023 Patient encounter procedure 06/29/2023 2:30 PM EST Office Visit [facility] [address] [facility] [address] [place] [address] Alex Alfredo DPM [address] [address] [facility] Start: 06-15-2023 End: 06-15-2023 Patient encounter procedure 06/15/2023 2:30 PM EST Office Visit [facility] [address] [address] Alex Alfredo DPM [address] [address] [facility] Start: 10-21-2022 Screening for osteoporosis Bone Density Scan [facility] Start: 10-17-2022 NPV, Provider: Roc Alvarado, Status: Pen, Time: 1:30 PM NPV, Provider: Roc Alvarado, Status: Pen, Time: 1:30 PM -[facility] Work Phone: Start: 2021 RSV High Risk: (Elderly (60+) or Population) (1 - 1-dose 75+ series) RSV High Risk: (Elderly (60+) or Population) (1 - 1-dose 75+ series) [facility] Start: 01-29-2021 Creatinine measurement Creatinine Level [facility] Start: 01-29-2021 Diabetes mellitus screening Diabetes Screening [facility] Start: 01-29-2021 Potassium measurement Potassium Level [facility] Start: 01-07-2021 FUV, Provider: Tasia Bird, Status: Pen, Time: 2:15 PM FUV, Provider: Tasia Bird, Status: Pen, Time: 2:15 PM -[facility] Work Phone: Start: 12-03-2020 FUV, Provider: Tasia Bird, Status: Pen, Time: 12:45 PM FUV, Provider: Tasia Bird, Status: Pen, Time: 12:45 PM [facility] Work Phone: Start: 1968 DTaP/Tdap/Td Vaccines (1 - Tdap) DTaP/Tdap/Td Vaccines (1 - Tdap) [facility] Start: 1965 Urine screening for protein CKD: Urine Protein Screening [facility] Start: 1964 Diabetes mellitus screening Diabetes Screening [facility] Start: 1964 Hepatitis C screening Hepatitis C Screening [facility] Start: 1946 Echocardiography Echocardiogram [facility] Start: 1946 Lipid panel Lipid Panel [facility] BLOOD CULTURE 1 BLOOD CULTURE 1 Lab Routine 05/12/2024 8:10 PM EST [facility] Healthcare End: 09-18-2024 NM Heart Perfusion W stress and W radionuclide IV [facility] Service Area Work Phone: Comment on above: Once for 1 Occurrences starting 09/19/19 until 09/18/2024 Immunizations Immunization Date Immunization Notes Care Provider Hao allred 03-05-2024 Influenza, High-dose Seasonal, Quadrivalent, Preservative Free Kamila Pride NP Work Phone: [facility] 03-05-2024 influenza virus vacc ine, unspecified formulation Amber Hawley MD Work Phone: [facility] Work Phone: 03-01-2023 Influenza, High-dose Seasonal, Quadrivalent, Preservative Free Alex Alfredo DPM Work Phone: [facility] 03-01-2023 influenza virus vacc ine, unspecified formulation Roc Steele MD Work Phone: [facility] 03-31-2022 Moderna Bivalent Pereira ster Vaccination Alex Alfredo DPM Work Phone: [facility] 03-23-2022 Influenza, High-dose Seasonal, Quadrivalent, Preservative Free Alex Alfredo DPM Work Phone: [facility] 01-28-2021 Influenza, Seasonal, Quadrivalent, Adjuvanted Alex Alfredo DPM Work Phone: [facility] 01-30-2020 influenza, injectabl e, quadrivalent, preservative free Alex Alfredo DPM Work Phone: [facility] 09-26-2019 zoster vaccine recombinant Alex Alfredo DPM Work Phone: [facility] 05-16-2019 zoster vaccine recombinant Alex Alfredo DPM Work Phone: [facility] 01-31-2018 influenza, high dose seasonal, preservative-free Alex Alfredo DPM Work Phone: [facility] 01-25-2017 influenza, high dose seasonal, preservative-free Alex Alfredo DPM Work Phone: [facility] 02-02-2016 influenza, injectabl e, quadrivalent, contains preservative Alex Alfredo DPM Work Phone: [facility] 02-07-2015 pneumococcal conjuga te vaccine, 13 valent Alex Alfredo DPM Work Phone: [facility] 01-30-2015 seasonal influenza, intradermal, preservative free Alex Alfredo DPM Work Phone: [facility] 02-07-2014 seasonal influenza, intradermal, preservative free Alex Alfredo DPM Work Phone: [facility] 12-11-2013 pneumococcal polysaccharide vaccine, 23 valent Alex Alfredo DPM Work Phone: [facility] 01-17-2012 zoster vaccine, live Zoya Alfredo DPM Work Phone: [facility] Payers Date Payer Category Payer Private Health Insurance [id number] 2022 Unknown 2008 Medicare [id number] 2008 Medicare [id number] 1959 Medicare [id number] 1959 Unknown [id number] 1946 Unknown [id number] 2.16.84 0.1.020407.3.579.2.593 1946 Unknown [id number] 2.16.84 0.1.664274.3.579.2.593 1946 Unknown [id number] 2.16.84 0.1.605887.3.579.2.593 1946 Unknown [id number] 2.16.8 40.1.009252.3.579.2.1068 1946 Unknown [id number] 2.16.8 40.1.779952.3.579.2.1259 1946 Unknown [id number] 2.16.8 40.1.246994.3.579.2.1259 1946 Unknown [id number] 2.16.84 0.1.238483.3.579.2.1259 1946 Unknown [id number] 2.16.84 0.1.543052.3.579.2.1259 1946 Unknown [id number] 2.16.84 0.1.300531.3.579.2.125 1946 Unknown [id number] 2.16.84 0.1.516246.3.579.2.1259 1946 Unknown [id number] 2.16.84 0.1.193173.3.579.2.125 1946 Unknown [id number] 2.16.84 0.1.537233.3.579.2.125 1946 Unknown [id number] 2.16.84 0.1.145977.3.579.2.1258 1946 Unknown [id number] 2.16.84 0.1.974062.3.579.2.1258 1946 Unknown [id number] 2.16.84 0.1.811791.3.579.2.1258 1946 Unknown [id number] 2.16.84 0.1.761353.3.579.2.1258 1946 Unknown [id number] 2.16.84 0.1.567388.3.579.2.1258 1946 Unknown [id number] 2.16.84 0.1.338605.3.579.2.125 1946 Unknown [id number] 2.16.84 0.1.600231.3.579.2.125 1946 Unknown [id number] 2.16.84 0.1.142866.3.579.2.125 1946 Unknown [id number] 2.16.84 0.1.544514.3.579.2.125 1946 Unknown [id number] 2.16.84 0.1.257237.3.579.2.1259 1946 Unknown [id number] 2.16.84 0.1.313972.3.579.2.1259 1946 Unknown [id number] 2.16.84 0.1.037192.3.579.2.1259 1946 Unknown [id number] 2.16.84 0.1.327819.3.579.2.1259 1946 Unknown [id number] 2.16.84 0.1.305143.3.579.2.1259 1946 Unknown [id number] 2.16. 840.1.847568.3.579.2.196 1946 Unknown [id number] 2.16. 840.1.318393.3.579.2.196 1946 Unknown [id number] 2.16. 840.1.164520.3.579.2.196 1946 Unknown [id number] 2.16. 840.1.790296.3.579.2.4 1946 Unknown [id number] 2.16. 840.1.155885.3.579.2.1244 1946 Unknown [id number] 2.16. 840.1.683482.3.579.2.4 1946 Unknown [id number] 2.16.8 40.1.075105.3.579.2.1246 1946 Unknown [id number] 2.16.8 40.1.647439.3.579.2.1246 1946 Unknown [id number] 2.16.8 40.1.544687.3.579.2.1246 1946 Unknown [id number] 2.16.8 40.1.736584.3.579.2.1246 1946 Unknown [id number] 2.16.8 40.1.173110.3.579.2.1246 1946 Unknown [id number] 2.16.8 40.1.632763.3.579.2.1246 Social History Date Type Detail Facility Start: 11-25-2022 End: 10-16-2024 Never a smoker Never a smoker [facility] Work Phone: Start: 10-03-2022 End: 07-15-2024 Tobacco smoking status NHIS Never smoked tobacco [facility] Start: 10-03-2022 End: 07-15-2024 Tobacco use and exposure Smokeless tobacco non-user [facility] Start: 06-01-2023 End: 10-16-2024 Alcohol intake Lifetime non-drinker (finding) [facility] Start: 11-25-2022 End: 10-16-2024 Humiliation, Afraid, Rape, and Kick questionnaire [HARK] [...] 09-18-2024 Exposure to SARS-CoV-2 (event) Not sure [facility] Start: 2024 Alcoholic beverage intake Ex-drinker (finding) [facility] Work Phone: NEGATED: Highlighted row - - [facility] [place] Work Phone: Medical Equipment Procedure Code Equipment Code Equipment Original Text Equipment Identifier Dates Screw, Low Profile Hex, 6.5 X 15 Mm Case [id number] Start: 01-29-2020 Comment on above: Description: Convert ed from [facility]. Please see archived information for full log information. Screw, Low Profile Hex, 6.5 X 25 Mm Case [id number] Start: 01-29-2020 Comment on above: Description: Convert ed from [facility]. Please see archived information for full log information. Head, Femur V40 36mm +2.5mm Biolox Delta Case [id number] Start: 01-29-2020 Comment on above: Description: Convert ed from [facility]. Please see archived information for full log information. Stem, Femur 132d Sz 5 Accolade Ii Case [id number] Start: 01-29-2020 Comment on above: Description: Convert ed from [facility]. Please see archived information for full log information. Shell, Trident Ii, Clusterhole, [place] 52e Case [id number] Start: 01-29-2020 Comment on above: Description: Convert ed from [facility]. Please see archived information for full log information. Liners, Poly 36 X 10 D Trid Crossfire E Case [id number] Start: 01-29-2020 Comment on above: Description: Convert ed from [facility]. Please see archived information for full log information. Functional Status Date Assessment Result Facility 10-16-2024 Patient Health Questionnaire 2 item (PHQ-2) [Reported] [facility] 08-19-2024 Patient Health Questionnaire 2 item (PHQ-2) [Reported] [facility] Healthcare NEGATED: Highlighted row Functional performance Functional status health issues are not documented Disease [facility] [place] Work Phone: Mental Status Date Assessment Result Facility NEGATED: Highlighted row Cognitive function [Interpretation] Cognitive status health issues are not documented Disease [facility] [place] Work Phone: Clinical Notes 06-01-2023 to [...] ratio 0.95 2. 30-day event monitor September 17-9 patient triggered events 1 auto triggered event [...] RV systolic pressure not estimated. Cardiomegaly Diverticulosis 2013 Edema Glaucoma (CMS/HCC) Heart [...] INJECTION x7 NERVE BLOCK Left 03/26/2019 T12-L3 MT TOTAL HIP ARTHROPLASTY Left Gilbert (01-29-2020 to 01-30-2020) RADIOFREQUENCY ABLATION Left 06/25/2019 [...] (NEURONTIN) 300 mg, 2 times daily HYDROcodone-acetaminophen ([place]) 5-325 mg tablet 1 tablet, Every 4 [...] XL (TOPROL-XL) 50 mg, oral, Every morning odjkeabjoceb-Ee-ondq-minerals tablet 1 tablet, Daily nortriptyline (PAMELOR) 30 [...] (241.3 mg elemental) tablet Holter Or Event Java Application Developer 4. Mixed hyperlipidemia simvastatin (Zocor) 10 mg [...] this time. Follow up : 6 months Katty De La Cruz LPN am scribing for, and in the presence of Dr. Amber Hawley MD, FACC. I, Dr. Amber Hawley MD, FACC, personally performed the services described in the documentation as scribed by Katty Iverson LPN in my presence, and confirm it is both accurate and complete. documented in this encounter [facility] Work Phone: 2024 Instructions Katty Alvarez LPN [...] instructions on exercise. documented in this encounter [facility] Work Phone: 10-17-2024 Telephone encounter Note Luma was seen yesterday called stating that her medication was not sent in yet. Please send meds to [facility] [place] [facility] 10-17-2024 Miscellaneous Notes Luma was seen yesterday called stating that her medication was not sent in yet. Please send meds to [facility] [place] documented in this encounter [facility] 10-16-2024 History of Present illness Narrative [...] INJECTION x7 NERVE BLOCK Left 03/26/2019 T12-L3 MT TOTAL HIP ARTHROPLASTY Left Gilbert (01-29-2020 to 01-30-2020) RADIOFREQUENCY ABLATION Left 06/25/2019 [...] follow-ups on file. documented in this encounter [facility] 10-10-2024 History of Present illness Narrative [...] surgery multiple times HTN (hypertension) (CMS/HCC) Hyperlipidemia ([facility]) Insomnia Lumbago Lumbosacral spondylosis without myelopathy Myalgia, unspecified site Myositis Occlusion and stenosis of unspecified carotid artery without mention of cerebral infarction CARO (obstructive sleep apnea) Osteoarthrosis unspecified wheteher generalized or localized. unspecified site Osteopenia Paroxysmal supraventricular tachycardia ([facility]) Medications: Current Outpatient Medications: albuterol HFA (Ventolin [...] min Stress: No Stress Concern Present (11/25/2022) [employer] [place] [employer] - Occupational Stress Questionnaire Feeling of Stress : Only a little Social Connections: Moderately Isolated (11/25/2022) Social Connection and Isolation Panel [NHANES] Frequency of Communication with Friends and Family: More than three times a week Frequency of Social Gatherings with Friends and Family: Once a week Attends Zoroastrian Services: Never Active Member of Clubs or [...] Alex Alfredo DPM documented in this encounter [facility] 08-19-2024 History of Present illness Narrative [...] MOUTH TWICE DAILY 200 capsule 3 HYDROcodone-acetaminophen ([place]) 5-325 MG tablet Take 1 tablet by [...] INJECTION x7 NERVE BLOCK Left 03/26/2019 T12-L3 MT TOTAL HIP ARTHROPLASTY Left Gilbert (01-29-2020 to 01-30-2020) RADIOFREQUENCY ABLATION Left 06/25/2019 [...] visit: Age-related osteoporosis without current pathological fracture ([facility]) - Prolia injection today. Osteopenia of both hips Chronic cough - Consider ENT referral if it persists. Follow up in about 2 months (around 10/19/2024). documented in this encounter [facility] 08-01-2024 History of Present illness Narrative [...] Diagnosis Date Cardiomegaly Diverticulosis 2013 Edema Glaucoma ([facility]) Heart disease, unspecified History of lumbar surgery [...] min Stress: No Stress Concern Present (11/25/2022) [place] [employer] - Occupational Stress Questionnaire Feeling of Stress : Only a little Social Connections: Moderately Isolated (11/25/2022) Social Connection and Isolation Panel [NHANES] Frequency of Communication with Friends and Family: More than three times a week Frequency of Social Gatherings with Friends and Family: Once a week Attends Zoroastrian Services: Never Active Member of Clubs or [...] Alex Alfredo DPM documented in this encounter [facility] 08-01-2024 History of Present illness Narrative [...] INJECTION x7 NERVE BLOCK Left 03/26/2019 T12-L3 MT TOTAL HIP ARTHROPLASTY Left Gilbert (01-29-2020 to 01-30-2020) RADIOFREQUENCY ABLATION Left 06/25/2019 [...] lozenges. Lumbosacral spondylosis without myelopathy - HYDROcodone-acetaminophen ([place]) 5-325 MG tablet; Take 1 tablet by [...] directed. Age-related osteoporosis without current pathological fracture ([facility]) - denosumab (Prolia) 60 MG/ML solution prefilled syringe; Inject 1 mL (60 mg) under the skin 1 (one) time for 1 dose Avoid falls as you can fracture. Take calcium with vitamin D. If you get this medication from your insurance, call the office and we can give you the medication No follow-ups on file. documented in this encounter [facility] 07-15-2024 Note Normal sinus rhythm 93 bpm voltage criteria for left ventricular hypertrophy abnormal R wave progression, 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 Compared to EKG from December 2019, left axis deviation loss of lateral R waves were noted in December 2019. [facility] 07-15-2024 History of Present illness Narrative [...] wheeled walkers. Subjective : Was hospitalized at [facility] in May 2024. She was told [...] Medical History: Cardiomegaly Diverticulosis 2013 Edema Glaucoma (CMS/HCC) Heart [...] INJECTION x7 NERVE BLOCK Left 03/26/2019 T12-L3 MT TOTAL HIP ARTHROPLASTY Left Gilbert (01-29-2020 to 01-30-2020) RADIOFREQUENCY ABLATION Left 06/25/2019 [...] ALPRAZolam (XANAX) 0.25 mg, Nightly PRN HYDROcodone-acetaminophen ([place]) 5-325 mg tablet 1 tablet, Every 4 [...] tablet Transthoracic Echo Complete Holter Or Event Java Application Developer 3. Abnormal EKG Transthoracic Echo Complete Holter Or Event Java Application Developer 4. Lightheadedness Nuclear Stress Test Holter Or Event Java Application Developer 5. Chest discomfort Nuclear Stress Test Holter Or Event Java Application Developer 6. Palpitations Transthoracic Echo Complete Nuclear Stress Test Holter Or Event Java Application Developer 7. Primary hypertension 8. Stenosis of carotid [...] further questions arise, Sincerely, Amber Hawley MD [facility] Katty De La Cruz LPN am scribing for, and in the presence of Dr. Amber Hawley MD, FAC. I, Dr. Amber Hawley MD, FACC, personally performed the services described in the documentation as scribed by Katty Iverson LPN in my presence, and confirm it is both accurate and complete. documented in this encounter [facility] Work Phone: 07-15-2024 Instructions Katty Alvarez LPN [...] instructions on exercise. documented in this encounter [facility] Work Phone: 07-11-2024 History of Present illness [...] Do you have a medical power of corporate associate attorney?: Yes Who is your medical power of corporate associate attorney?: Objective : BP 130/80 Pulse 87 [...] 16. Morbid obesity due to excess calories ([facility]) Discussed goal of BMI < 30. Advised [...] this time. 22. Hyperlipidemia, unspecified hyperlipidemia type ([facility]/HCC) This is a chronic medical condition that [...] panel 27. Routine general medical examination at [facility] care facility Reviewed all relevant preventative screenings with the patient in detail. Medicare Wellness form completed and will be scanned into patient's chart. All needed testing was ordered. Will continue with yearly Medicare Wellness exams. No orders of the defined types were placed in this encounter. Electronically signed by Kamila Pride NP on July 11, 2024 documented in this encounter [facility] 07-03-2024 History of Present illness Narrative [...] INJECTION x7 NERVE BLOCK Left 03/26/2019 T12-L3 MT TOTAL HIP ARTHROPLASTY Left Gilbert (01-29-2020 to 01-30-2020) RADIOFREQUENCY ABLATION Left 06/25/2019 [...] as she wants to go to the pupil personnel worker that her goes to. Primary insomnia - [...] failure, unspecified heart failure type (CMS/HCC) - Ambulatory referral to Cardiology; Future Awaiting cardiology appointment. She did not follow up with cardiology as she was supposed to when she got out of the hospital. New referral sent as she wants to go to the pupil personnel worker that her goes to. Stage 3b chronic [...] follow-ups on file. documented in this encounter [facility] 06-11-2024 History of Present illness Narrative [...] for 3 days and she called the personal care aid nurse and they advised her to go [...] INJECTION x7 NERVE BLOCK Left 03/26/2019 T12-L3 MT TOTAL HIP ARTHROPLASTY Left Gilbert (01-29-2020 to 01-30-2020) RADIOFREQUENCY ABLATION Left 06/25/2019 [...] to follow up with Dr. Chavez in [facility]. Await his recommendations. She continue on [...] follow-ups on file. documented in this encounter [facility] 05-23-2024 History of Present illness Narrative [...] of lumbar surgery multiple times HTN (hypertension) ([facility]) Hyperlipidemia ([facility]) Insomnia Lumbago Lumbosacral spondylosis without myelopathy Myalgia, unspecified site Myositis Occlusion and stenosis of unspecified carotid artery without mention of cerebral infarction CARO (obstructive sleep apnea) Osteoarthrosis unspecified wheteher generalized or localized. unspecified site Osteopenia Paroxysmal supraventricular tachycardia ([facility]) Medications: Current Outpatient Medications: ALPRAZolam (Xanax) 0.25 [...] min Stress: No Stress Concern Present (11/25/2022) [place] [employer] - Occupational Stress Questionnaire Feeling of Stress : Only a little Social Connections: Moderately Isolated (11/25/2022) Social Connection and Isolation Panel [NHANES] Frequency of Communication with Friends and Family: More than three times a week Frequency of Social Gatherings with Friends and Family: Once a week Attends Zoroastrian Services: Never Active Member of Clubs or [...] Alex Alfredo DPM documented in this encounter [facility] 05-22-2024 History of Present illness Narrative [...] INJECTION x7 NERVE BLOCK Left 03/26/2019 T12-L3 MT TOTAL HIP ARTHROPLASTY Left Gilbert (01-29-2020 to 01-30-2020) RADIOFREQUENCY ABLATION Left 06/25/2019 [...] follow-ups on file. documented in this encounter [facility] 05-15-2024 History of Present illness Narrative Images from the original note were not included. Subjective Patient ID: Luma Ribeiro is a 78 y.o. female who presents for A F/U FOR PNEUMONIA, CHF Luma presents today for F/U for pneumonia and CHF. Was admitted to [facility] on 05-12-24.She is feeling weak and SOB still. Home health has not started. Pt would benefit from Nursing, PT/OT, and aide. PT was diagnosed with generalized weakness, CHF, And pneumonia. She continues on Doxycycline. The hospital discharge pt with an order for Lasix prn. Pt educated on when to take a prn lasix. She verbalized understanding. The hospital set up [facility] but we will set pt up with [facility] as they have a contract with [facility]. She is home bound due [...] INJECTION x7 NERVE BLOCK Left 03/26/2019 T12-L3 MT TOTAL HIP ARTHROPLASTY Left Gilbert (01-29-2020 to 01-30-2020) RADIOFREQUENCY ABLATION Left 06/25/2019 [...] follow-ups on file. documented in this encounter [facility] 05-07-2024 History of Present illness Narrative [...] TWICE DAILY 200 capsule 3 [] HYDROcodone-acetaminophen ([place]) 5-325 MG tablet Take 1 tablet by [...] INJECTION x7 NERVE BLOCK Left 03/26/2019 T12-L3 MT TOTAL HIP ARTHROPLASTY Left Sangeetha (01-29-2020 to [...] (CMS/HCC) Body mass index (BMI) 45.0-49.9, adult ([facility]) Discussed goal of BMI < 30. Advised [...] follow-ups on file. documented in this encounter [facility] 04-16-2024 Telephone encounter Note OARRS reviewed, Rx sent into patient's pharmacy. [facility] 04-16-2024 Miscellaneous Notes OARRS reviewed, Rx sent into patient's pharmacy. documented in this encounter [facility] 04-03-2024 History of Present illness Narrative [...] breathing, coughing, lifting and movement. Treatments tried: [place], cough syrup, muscle relaxer. The treatment provided [...] TWICE DAILY 200 capsule 3 [] HYDROcodone-acetaminophen ([place]) 5-325 MG tablet Take 1 tablet by [...] INJECTION x7 NERVE BLOCK Left 03/26/2019 T12-L3 MT TOTAL HIP ARTHROPLASTY Left Gilbert (01-29-2020 to 01-30-2020) RADIOFREQUENCY ABLATION Left 06/25/2019 [...] breathing. Lumbosacral spondylosis without myelopathy - HYDROcodone-acetaminophen ([place]) 5-325 MG tablet; Take 1 tablet by [...] follow-ups on file. documented in this encounter [facility] 03-07-2024 Note Carpal tunnel syndro me, left, severe. Progressed substantially when compared to EDX evaluation in 2021. C8 radiculopathy, left, moderate. Progressed when compared to EDX evaluation in 2021 [facility] 03-07-2024 Note Carpal tunnel syndro me, left, severe. Progressed substantially when compared to EDX evaluation in 2021. C8 radiculopathy, left, moderate. Progressed when compared to EDX evaluation in 2021 [facility] 03-07-2024 History of Present illness Narrative Images from the original note were not included. Reason for Appointment: EMG Patient: Luma Ribeiro : 1945 EMG Computer: [employer] Referring Physician: Kamila Pride CNP EMG: PABLO automatic pattern edger: Jimmy Gibson RT(R) Office Location: [place] Reason for EMG: c/o numbness/tingling in left hand/forearm especially in 2nd & 3rd digits, weakness in left hand. No hx of DM. Not on blood thinners. Comments: Procedure was explained to the patient who expressed understanding. Patient appeared to have tolerated the test well despite some discomfort due to the nature of the test. documented in this encounter [facility] 03-05-2024 History of Present illness Narrative [...] inciting event Pt feels she has decreased junior systems analyst strength in left hand Hypertension This is [...] MOUTH TWICE DAILY 200 capsule 3 HYDROcodone-acetaminophen ([place]) 5-325 MG tablet Take 1 tablet by [...] at bedtime 90 tablet 1 [DISCONTINUED] HYDROcodone-acetaminophen ([place]) 5-325 MG tablet Take 1 tablet by [...] INJECTION x7 NERVE BLOCK Left 03/26/2019 T12-L3 MT TOTAL HIP ARTHROPLASTY Left Gilbert (01-29-2020 to 01-30-2020) RADIOFREQUENCY ABLATION Left 06/25/2019 [...] need - Influenza, high-dose seasonal, quadrivalent, PF (YPS013) (Fluzone High Dose Quad North 0.7mL dose) [...] follow-ups on file. documented in this encounter [facility] 02-29-2024 Telephone encounter Note OARRS reviewed, Rx sent into patient's pharmacy. [facility] 02-29-2024 Miscellaneous Notes OARRS reviewed, Rx sent into patient's pharmacy. Hydrocodone 325 DDM IN [place] She had an appt today for a med follow up with kamila but had to change it due to her not being in. She said she has about 6 pills left. She did reschedule her med follow up for next Monday. documented in this encounter [facility] 02-29-2024 Telephone encounter Note Hydrocodone 325 DDM IN [place] She had an appt today for a med follow up with kamila but had to change it due to her not being in. She said she has about 6 pills left. She did reschedule her med follow up for next Monday. [facility] 01-29-2024 Telephone encounter Note Amlodipine sent [facility] 01-29-2024 Miscellaneous Notes Amlodipine sent documented in this encounter [facility] 06-15-2023 History of Present illness Narrative [...] Diagnosis Date Cardiomegaly Diverticulosis 2013 Edema Glaucoma ([facility]) Heart disease, unspecified History of lumbar surgery multiple times HTN (hypertension) ([facility]) Hyperlipidemia ([facility]) Insomnia Lumbago Lumbosacral spondylosis without myelopathy Myalgia, [...] min Stress: No Stress Concern Present (11/25/2022) [place] [employer] - Occupational Stress Questionnaire Feeling of Stress : Only a little Social Connections: Moderately Isolated (11/25/2022) Social Connection and Isolation Panel [NHANES] Frequency of Communication with Friends and Family: More than three times a week Frequency of Social Gatherings with Friends and Family: Once a week Attends Zoroastrian Services: Never Active Member of Clubs or [...] Patient may continue with conservative treatments including [id number] anti-inflammatories and other treatments suggested today. Patient may want to be scheduled for surgical intervention in the near future. Patient have the right hallux subungual exostectomy with the lateral left hallux partial permanent nail avulsion in the near future Alex Alfredo DPM documented in this encounter [facility] 06-01-2023 History of Present illness Narrative [...] Diagnosis Date Cardiomegaly Diverticulosis 2013 Edema Glaucoma ([facility]) Heart disease, unspecified History of lumbar surgery multiple times HTN (hypertension) ([facility]) Hyperlipidemia ([facility]) Insomnia Lumbago Lumbosacral spondylosis without myelopathy Myalgia, [...] min Stress: No Stress Concern Present (11/25/2022) [place] [employer] - Occupational Stress Questionnaire Feeling of Stress : Only a little Social Connections: Moderately Isolated (11/25/2022) Social Connection and Isolation Panel [NHANES] Frequency of Communication with Friends and Family: More than three times a week Frequency of Social Gatherings with Friends and Family: Once a week Attends Zoroastrian Services: Never Active Member of Clubs or [...] Patient may continue with conservative treatments including iczm-hen-memdmqh anti-inflammatories and other treatments suggested today. Patient [...] Alex Alfredo DPM documented in this encounter [facility] Healthcare Evaluation note Diagnosis Subungual exostosis [...] Acute non-recurrent pansinusitis documented in this encounter [facility] HealthcareEvaluation note* Diagnosis Paroxysmal supraventricular tachycardia (CMS/HCC)- Primary Paroxysmal supraventricular tachycardia Primary insomnia Persistent disorder of initiating or maintaining sleep Acute congestive heart failure, unspecified heart failure type (CMS/HCC) Stage 3b chronic kidney disease (HCC) (CMS/HCC) Weakness Other malaise and fatigue Other fatigue Pain of right hip Fall, initial encounter documented in this encounter [facility] HealthcareEvaluation note* Diagnosis Insomnia, unspecified [...] failure type (CMS/HCC) documented in this encounter [facility] HealthcareEvaluation note* Diagnosis Encounter to establish care with new doctor Paroxysmal supraventricular tachycardia ([facility]) Paroxysmal supraventricular tachycardia Abnormal EKG Nonspecific [...] Never smoked cigarettes documented in this encounter [facility] Work Phone: Evaluation note* Diagnosis Pain due to onychomycosis of toenails of both feet- Primary documented in this encounter [facility] HealthcareEvaluation note* Diagnosis SOB (shortness of breath)- Primary Shortness of breath Chronic cough Cough Lumbosacral spondylosis without myelopathy Seasonal allergic rhinitis, unspecified trigger Age-related osteoporosis without current pathological fracture (CMS/HCC) documented in this encounter [facility] HealthcareEvaluation note* Diagnosis Age-related osteoporosis without current pathological fracture (CMS/HCC)- Primary Osteopenia of both hips Chronic cough Cough documented in this encounter [facility] HealthcareEvaluation note* Diagnosis Lightheadedness Dizziness and giddiness Chest discomfort Other chest pain Palpitations Mixed hyperlipidemia documented in this encounter [facility] Work Phone: Evaluation note* Diagnosis Paroxysmal supraventricular tachycardia Abnormal EKG Nonspecific abnormal electrocardiogram (ECG) (EKG) Palpitations documented in this encounter [facility] Work Phone: Evaluation note* Diagnosis Pain due to onychomycosis of toenails of both feet- Primary documented in this encounter [facility] HealthcareEvaluation note* Diagnosis Acute low back pain without sciatica, unspecified back pain laterality- Primary documented in this encounter [facility] HealthcareEvaluation note* Diagnosis Lumbosacral spondylosis without myelopathy documented in this encounter [facility] HealthcareEvaluation note* Diagnosis Encounter to discuss test results- Primary Other specified counseling Uses roller walker Palpitations Mixed hyperlipidemia Chest discomfort Other chest pain CARO on CPAP Paroxysmal supraventricular tachycardia Never smoked cigarettes Body mass index (BMI) 40.0-44.9, adult (Multi) documented in this encounter [facility] Work Phone: History of Present illness NarrativeLuma is a 75-year-old female patient of Dr. Bird who is here for ultrasound-guided right intraarticular shoulder injection. She has a history of pain and discomfort. She was seen and evaluated and referred to me for first lifetime intraarticular shoulder injection, which the patient accepts[facility] Work Phone: History of Present [...] normal pronation supination wrist flexion 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 Distal pulses and sensation are intact. Limited forward flexion to about 25 degrees lateral abduction to about 15 unable to perform any external rotation but internal he can get to the small of her back. Herexam does not allow for much of a true Neer's [place] or [place]'s test. * Diagnostics: See dictated report from today, previous outside CT scan report of the humerus reviewed, and is available in the [facility] chart. * Procedure: None * Assessment: [...] the patient's CT scan report reviewed in [facility] Other than the anterior medial dislocation and [...] grammatical areas may persist related to the [employer] software * Taniya Al MD * Office: * . -[facility] Work Phone: [...] Diagnosis Date Cardiomegaly Diverticulosis 2013 Edema Glaucoma ([facility]/HCC) Heart disease, unspecified History of lumbar surgery multiple times HTN (hypertension) (CMS/HCC) Hyperlipidemia (CMS/HCC) Insomnia Lumbago Lumbosacral spondylosis without myelopathy Myalgia, unspecified site Myositis Occlusion and stenosis of unspecified carotid artery without mention of cerebral infarction CARO (obstructive sleep apnea) Osteoarthrosis unspecified wheteher generalized or localized. unspecified site Osteopenia Paroxysmal supraventricular tachycardia ([facility]) Medications: Current Outpatient Medications: ALPRAZolam (Xanax) 0.25 [...] min Stress: No Stress Concern Present (11/25/2022) [place] [employer] - Occupational Stress Questionnaire Feeling of Stress : Only a little Social Connections: Moderately Isolated (11/25/2022) Social Connection and Isolation Panel [NHANES] Frequency of Communication with Friends and Family: More than three times a week Frequency of Social Gatherings with Friends and Family: Once a week Attends Zoroastrian Services: Never Active Member of Clubs or [...] 9 Alex Alfredo DPM documented in this encounterNOOH John for visit Narrative* Other Medical (Routine) - Closed Specialty Diagnoses / Procedures Referred By Aminah beltran Referred To Contact Neurology Diagnoses Numbness of hand Procedures MT OFFICE/OUTPATIENT [facility] HIGH MDM 60 MINUTES Kamila Pride, DEISY [address] [facility] [address] [place] [address] Phone: tel: fax: Waqas Dugan DO [address] [place] [address] Phone: tel: fax: Referral ID Status Reason Start Date Expiration Date V isits Requested Visits Authorized [id number] Closed Perform Procedure 03/05/2024 09/01/[address] [facility] visit Narrative* Cardiac Stress Testing (Routine) - Authorized Specialty Diagnoses / Procedures Referred By Aminah beltran Referred To Contact Radiology Diagnoses Lightheadedness Chest discomfort Palpitations Mixed hyperlipidemia Procedures Nuclear Stress Test CHG MYOCARDIAL SPECT MULTIPLE STUDIES Amber Hawley MD [address] [facility] [address] [place] [address] Phone: tel: fax: Referral ID Status Reason Start Date Expiration Date V isits Requested Visits Authorized [id number] Authorized 07/15/2024 07/15/2025 5 5 [facility] Work Phone: Reason for visit Narrative* Cardiac Stress Testing (Routine) - Authorized Specialty Diagnoses / Procedures Referred By Contac t Referred To Contact Radiology Diagnoses Lightheadedness Chest discomfort Palpitations Mixed hyperlipidemia Procedures Nuclear Stress Test CHG MYOCARDIAL SPECT MULTIPLE STUDIES Amber Hawley MD [address] [address] Phone: tel: fax: Referral ID Status Reason Start Date Expiration Date V isits Requested Visits Authorized [id number] Authorized 07/15/2024 07/15/2025 5 5 [facility] Work Phone: Revxgr for visit Narrative* CV Imaging (Routine) - Authorized Specialty Diagnoses / Procedures Referred By Aminah t Referred To Contact Cardiology Diagnoses Paroxysmal supraventricular tachycardia Abnormal EKG Palpitations Procedures Transthoracic Echo Complete MT ECHO TTHRC R-T 2D W/WOM-MODE COMPL SPEC&COLR D Amber Hawley MD [address] [address] Phone: tel: fax: Referral ID Status Reason Start Date Expiration Date Visits Requested Visits Authorized [id number] Authorized Perform Procedure 07/15/2024 07/15/2025 1 1 [facility] Work Phone: Chief Complaint * New problem * Right shoulder pain MP Refer : RT shoulder ultra sound guided injection* Right shoulder pain, here for injection. 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 Summary Purpose Family History No Family [...] DATE CREATED AUTHOR AUTHOR'S ORGANIZ ATION 09/12/2022 [facility] dical Specialist DATE CREATED AUTHOR AUTHOR'S ORGANIZ ATION 10/09/2022 [facility] DATE CREATED AUTHOR AUTHOR'S ORGANIZ ATION 10/09/2022 [employer] DATE CREATED AUTHOR AUTHOR'S ORGANIZ ATION 05/01/2024 [facility] DATE CREATED AUTHOR AUTHOR'S ORGANIZ ATION 07/28/2024 [facility] DATE CREATED AUTHOR AUTHOR'S ORGANIZ ATION 10/19/2024 [facility] dical Specialists EPIC DATE CREATED AUTHOR AUTHOR'S ORGANIZ ATION 11/16/[address] [facility] DATE CREATED AUTHOR AUTHOR'S ORGANIZ ATION 11/22/2024 [facility] DATE CREATED AUTHOR AUTHOR'S ORGANIZ ATION 11/23/2024 [facility] Reason for Visit (unrecogniz ed [...] 12 Lead Amber Hawley MD [address] [facility] [address] [place] [address] Phone: tel: fax: Referral ID Status Reason Start Date Expiration Date V isits Requested Visits Authorized [id number] Authorized 07/15/2024 07/15/2025 1 1 Reason Comments prolia injection Here for injection b illed and shipped from [facility] Osteoporosis Reason Comments Toenail Care Non dm naiil care Reason Onset Date Comments Med Refill 10/16/2024 Reason Comments Follow-up Mlp, echo results Specialty Diagnoses / Procedures Referred By Contac t Referred To Contact Cardiology Diagnoses Paroxysmal supraventricular tachycardia Procedures Follow Up In Cardiology Amber Hawley MD [address] [address] Phone: tel: fax: Amber Hawley MD [address] [address] Phone: tel: fax: Referral ID Status Reason Start Date Expiration Date V isits Requested Visits Authorized [id number] Authorized 07/15/2024 07/15/2025 1 1 Care Teams (unrecognized sec tion and content) Feed Handler Relationship Specialty Start Date End Date Roc Steele MD [address] [place] [address] PCP - ACO Reach 09/22/22 Roc Steele MD [address] [place] [address] PCP - General Internal Medicine 09/28/22 Feed Handler Relationship Specialty Start Date End Date Roc Steele MD [address] [place] [address] PCP - ACO Reach 09/22/22 Roc Steele MD [address] [place] [address] PCP - General Internal Medicine 09/28/22 Feed Handler Relationship Specialty Start Date End Date Roc Steele MD [address] [place] [address] PCP - ACO Reach 09/22/22 Roc Steele MD [address] [place] [address] PCP - General Internal Medicine 09/28/22 Feed Handler Relationship Specialty Start Date End Date Roc Steele MD [address] [place] [address] PCP - General Internal Medicine 09/28/22 Roc Steele MD [address] [place] [address] PCP - ACO Reach 08/30/23 Feed Handler Relationship Specialty Start Date End Date Roc Steele MD [address] [place] [address] PCP - General Internal Medicine 09/28/22 Roc Steele MD [address] [place] [address] PCP - ACO Reach 08/30/23 Feed Handler Relationship Specialty Start Date End Date Roc Steele MD [address] [place] [address] PCP - General Internal Medicine 09/28/22 Roc Steele MD [address] [place] [address] PCP - ACO Reach 08/30/23 Feed Handler Relationship Specialty Start Date End Date Roc Steele MD [address] [place] [address] PCP - General Internal Medicine 09/28/22 Roc Steele MD [address] [place] [address] PCP - ACO Reach 08/30/23 Feed Handler Relationship Specialty Start Date End Date Roc Steele MD [address] [place] [address] PCP - General Internal Medicine 09/28/22 Roc Steele MD [address] [place] [address] PCP - ACO Reach 08/30/23 Feed Handler Relationship Specialty Start Date End Date Roc Steele MD [address] [place] [address] PCP - General Internal Medicine 09/28/22 Roc Steele MD [address] [place] [address] PCP - ACO Reach 08/30/23 Feed Handler Relationship Specialty Start Date End Date Roc Steele MD [address] [place] [address] PCP - General Internal Medicine 09/28/22 Roc Steele MD [address] [place] [address] PCP - ACO Reach 08/30/23 Waqas Dugan DO [address] [place] [address] Referring Physician Neurology 03/07/24 Feed Handler Relationship Specialty Start Date End Date Roc Steele MD [address] [place] [address] PCP - General Internal Medicine 09/28/22 Roc Steele MD [address] [place] [address] PCP - ACO Reach 08/30/23 Waqas Dugan DO [address] [place] [address] Referring Physician Neurology 03/07/24 Feed Handler Relationship Specialty Start Date End Date Roc Steele MD [address] [place] [address] PCP - General Internal Medicine 09/28/22 Roc Steele MD [address] [place] [address] PCP - ACO Reach 08/30/23 Waqas Dugan DO [address] [place] [address] Referring Physician Neurology 03/07/24 Feed Handler Relationship Specialty Start Date End Date Roc Steele MD [address] [place] [address] PCP - General Internal Medicine 09/28/22 Roc Steele MD [address] [place] [address] PCP - ACO Reach 08/30/23 Waqas Dugan DO [address] [place] [address], [place] [address] Referring Physician Neurology 03/07/24 Feed Handler Relationship Specialty Start Date End Date Roc Steele MD [address] [place] [address] PCP - General Internal Medicine 09/28/22 Roc Steele MD [address] [place] [address] PCP - ACO Reach 08/30/23 Waqas Dugan DO [address] [place] [address] Referring Physician Neurology 03/07/24 Feed Handler Relationship Specialty Start Date End Date Roc Steele MD [address] [place] [address] PCP - General Internal Medicine 09/28/22 Roc Steele MD [address] [place] [address] PCP - ACO Reach 08/30/23 Feed Handler Relationship Specialty Start Date End Date Roc Steele MD [address] [place] [address] PCP - General Internal Medicine 09/28/22 Roc Steele MD [address] [place] [address] PCP - ACO Reach 08/30/23 Waqas Dugan DO [address] [place] [address] Referring Physician Neurology 03/07/24 Feed Handler Relationship Specialty Start Date End Date Roc Steele MD [address] [place] [address] PCP - General Internal Medicine 09/28/22 Roc Steele MD [address] [place] [address] PCP - ACO Reach 08/30/23 Waqas Dugan DO [address] [place] [address] Referring Physician Neurology 03/07/24 Feed Handler Relationship Specialty Start Date End Date Roc Steele MD [address] [place] [address] PCP - General Internal Medicine 09/28/22 Roc Steele MD [address] [place] [address] PCP - ACO Reach 08/30/23 Waqas Dugan DO [address] [place] [address] Referring Physician Neurology 03/07/24 Feed Handler Relationship Specialty Start Date End Date Roc Steele MD [address] [place] [address] PCP - General Internal Medicine 09/28/22 Roc Steele MD [address] [place] [address] PCP - ACO Reach 08/30/23 Waqas Dugan DO [address] [place] [address] Referring Physician Neurology 03/07/24 Feed Handler Relationship Specialty Start Date End Date Roc Steele MD [address] [place] [address] PCP - General Internal Medicine 09/28/22 Roc Steele MD [address] [place] [address] PCP - ACO Reach 08/30/23 Waqas Dugan DO [address] [place] [address] Referring Physician Neurology 03/07/24 Feed Handler Relationship Specialty Start Date End Date Roc Steele MD [address] [place] [address] PCP - General Internal Medicine 09/28/22 Roc Steele MD [address] [place] [address] PCP - ACO Reach 08/30/23 Waqas Dugan DO [address] [place] [address] Referring Physician Neurology 03/07/24 Feed Handler Relationship Specialty Start Date End Date Roc Steele MD [address] [place] [address] PCP - General Internal Medicine 09/28/22 Roc Steele MD [address] [place] [address] PCP - ACO Reach 08/30/23 Waqas Dugan DO [address] [place] [address] Referring Physician Neurology 03/07/24 Feed Handler Relationship Specialty Start Date End Date Roc Steele MD [address] [place] [address] PCP - General Internal Medicine 09/28/22 Roc Steele MD [address] [place] [address] PCP - ACO Reach 08/30/23 Waqas Dugan DO [address] [place] [address] Referring Physician Neurology 03/07/24 Raya Holt, RN Clinical Advocate Family Medicine 06/07/24 Feed Handler Relationship Specialty Start Date End Date Roc Steele MD [address] [place] [address] PCP - General Internal Medicine 09/28/22 Roc Steele MD [address] [place] [address] PCP - ACO Reach 08/30/23 Waqas Dugan DO [address] [place] [address] Referring Physician Neurology 03/07/24 Raya Holt, CARMEN Clinical Advocate Family Medicine 06/07/24 Feed Handler Relationship Specialty Start Date End Date Roc Steele MD [address] [place] [address] PCP - General Internal Medicine 09/28/22 Roc Steele MD [address] [place] [address] PCP - ACO Reach 08/30/23 Waqas Dugan DO [address] [place] [address] Referring Physician Neurology 03/07/24 Raya Holt, CARMEN Clinical Advocate Family Medicine 06/07/24 Feed Handler Relationship Specialty Start Date End Date Roc Steele MD [address] [place] [address] PCP - General Internal Medicine 09/28/22 Roc Steele MD [address] [place] [address] PCP - ACO Reach 08/30/23 Waqas Dugan DO [address] [place] [address] Referring Physician Neurology 03/07/24 Raya Holt RN Clinical [facility] Family [facility] 06/07/24 Feed Handler Relationship Specialty Start Date End Date Roc Steele MD [address] [place] [address] PCP - General Internal Medicine 09/28/22 Roc Steele MD [address] [place] [address] PCP - ACO Reach 08/30/23 Waqas Dugan DO [address] [place] [address] Referring Physician Neurology 03/07/24 Raya Holt, CARMEN Clinical Advocate Family Medicine 06/07/24 Feed Handler Relationship Specialty Start Date End Date Roc Steele MD [address] [place] [address] PCP - General 10/04/22 Feed Handler Relationship Specialty Start Date End Date Roc Steele MD [address] [place] [address] PCP - General Internal Medicine 09/28/22 Roc Steele MD [address] [place] [address] PCP - ACO Reach 08/30/23 Waqas Dugan DO [address] [place] [address] Referring Physician Neurology 03/07/24 Gladis Laird LPN 07/19/24 Feed Handler Relationship Specialty Start Date End Date Roc Steele MD [address] [place] [address] PCP - General Internal Medicine 09/28/22 Roc Steele MD [address] [place] [address] PCP - ACO Reach 08/30/23 Waqas Dugan DO [address] [place] [address] Referring Physician Neurology 03/07/24 Gladis Laird LPN 07/19/24 Feed Handler Relationship Specialty Start Date End Date Roc Steele MD [address] [place] [address] PCP - General Internal Medicine 09/28/22 Roc Steele MD [address] [place] [address] PCP - ACO Reach 08/30/23 Waqas Dugan DO [address] [place] [address] Referring Physician Neurology 03/07/24 Gladis Laird LPN 07/19/24 Feed Handler Relationship Specialty Start Date End Date Roc Steele MD [address] [place] [address] PCP - General Internal Medicine 09/28/22 Roc Steele MD [address] [facility] [address] [place] [address] PCP - ACO Reach 08/30/23 Waqas Dugan DO [address] [place] [address] Referring Physician Neurology 03/07/24 Gladis Laird LPN 07/19/24 Feed Handler Relationship Specialty Start Date End Date Roc Steele MD [address] [facility] [address] [place] [address] PCP - General Internal Medicine 09/28/22 Roc Steele MD [address] [place] [address] PCP - ACO Reach 08/30/23 Waqas Dugan DO [address] [place] [address] Referring Physician Neurology 03/07/24 Gladis Laird LPN 07/19/24 Feed Handler Relationship Specialty Start Date End Date Roc Steele MD [address] [place] [address] PCP - General 10/04/22 Feed Handler Relationship Specialty Start Date End Date Roc Steele MD [address] [place] [address] PCP - General 10/04/22 Feed Handler Relationship Specialty Start Date End Date Roc Steele MD [address] [place] [address] PCP - General 10/04/22 Feed Handler Relationship Specialty Start Date End Date Roc Steele MD [address] [place] [address] PCP - General Internal Medicine 09/28/22 Roc Steele MD [address] [place] [address] PCP - ACO Reach 08/30/23 Waqas Dugan DO [address] [place] [address] Referring Physician Neurology 03/07/24 Gladis Laird LPN 07/19/24 Feed Handler Relationship Specialty Start Date End Date Roc Steele MD [address] [place] [address] PCP - General Internal Medicine 09/28/22 Roc Steele MD [address] [place] [address] PCP - ACO Reach 08/30/23 Waqas Dugan DO [address] [place] [address] Referring Physician Neurology 03/07/24 Gladis Laird LPN 07/19/24 Feed Handler Relationship Specialty Start Date End Date Roc Steele MD [address] [place] [address] PCP - General Internal Medicine 09/28/22 Roc Steele MD [address] [place] [address] PCP - ACO Reach 08/30/23 Waqas Dugan DO [address] [place] [address] Referring Physician Neurology 03/07/24 Gladis Laird LPN [address] [place] [address] 07/19/24 Feed Handler Relationship Specialty Start Date End Date Roc Steele MD [address] [place] [address] PCP - General Internal Medicine 09/28/22 Roc Steele MD [address] [place] [address] PCP - ACO Reach 08/30/23 Waqas Dugan DO [address] [place] [address] Referring Physician Neurology 03/07/24 Gladis Laird LPN [address] [place] [address] 07/19/24 Feed Handler Relationship Specialty Start Date End Date Roc Steele MD [address] [place] [address] PCP - General Internal Medicine 09/28/22 Roc Steele MD [address] [place] [address] PCP - ACO Reach 08/30/23 Waqas Dugan DO [address] [place] [address], [place] [address] Referring Physician Neurology 03/07/24 Gladis Laird LPN [address] [place] [address] 07/19/24 Feed Handler Relationship Specialty Start Date End Date Roc Steele MD [address] [place] [address] PCP - General 10/04/22 Feed Handler Relationship Specialty Start Date End Date Roc Steele MD [address] [place] [address] PCP - General Internal Medicine 09/28/22 Roc Steele MD [address] [place] [address] PCP - ACO Reach 08/30/23 Waqas Dugan DO [address] [place] [address] Referring Physician Neurology 03/07/24 Gladis Laird LPN [address] [place] [address] 07/19/24 FOR RECORDS PERTAINING TO PATIENTS WHO ARE [...] BE BASED ON THE PRIMARY CLINICAL RECORDS. [employer] [facility]. provides no warranty or guarantee of the accuracy or completeness of information in this document.
== END 2024-12-29 16:22 | DRG 493 ==
LOC: ER 15:19 → MS 12-27 12:01
PROVIDERS: Podiatrist Foot & Ankle Surgery; Admitting Provider Internal Medicine; Emergency Provider Emergency Medicine; PCP Internal Medicine; Visit Provider Internal Medicine
PROC: 0QSK04Z Reposition Left Fibula with Internal Fixation Device, Open Approach (ICD-10-PCS; principal; 2024-12-27 12:30)
DX: S82.842A Displaced bimalleolar fracture of left lower leg, initial encounter for closed fracture (principal); I13.0 Hypertensive heart and chronic kidney disease with heart failure and stage 1 through stage 4 chronic kidney disease, or unspecified chronic kidney disease; I50.32 Chronic diastolic (congestive) heart failure; Z68.42 Body mass index [BMI] 45.0-49.9, adult; W18.39XA Other fall on same level, initial encounter; X50.1XXA Overexertion from prolonged static or awkward postures, initial encounter; R94.31 Abnormal electrocardiogram [ECG] [EKG]; E78.00 Pure hypercholesterolemia, unspecified; G62.9 Polyneuropathy, unspecified; E66.01 Morbid (severe) obesity due to excess calories; N18.30 Chronic kidney disease, stage 3 unspecified; S93.432A Sprain of tibiofibular ligament of left ankle, initial encounter; E55.9 Vitamin D deficiency, unspecified; Z79.899 Other long term (current) drug therapy; Z87.01 Personal history of pneumonia (recurrent); F41.9 Anxiety disorder, unspecified; K21.9 Gastro-esophageal reflux disease without esophagitis; M79.7 Fibromyalgia; H35.30 Unspecified macular degeneration; G47.30 Sleep apnea, unspecified; Z96.661 Presence of right artificial ankle joint; Z96.653 Presence of artificial knee joint, bilateral; Z96.641 Presence of right artificial hip joint; S80.211A Abrasion, right knee, initial encounter; M81.0 Age-related osteoporosis without current pathological fracture
CPT/HCPCS: 36415; 51702; 64445; 64447; 70450; 72125; 72131; 72192; 73562; 73590; 73610; 73630; 76000; 80048; 80053; 82306; 82948; 85025; 85027; 93005; 96374; 96376; 97110; 97162; 97530; 99285; C1713; J0665; J0690; J1100; J1171; J1644; J2250; J2270; J2405; J2704; J3010

== ENCOUNTER 2025-01-01 09:16 | Emergency (ER) | payer MEDICARE, OTHER, SELFPAY ==
[2025-01-01] VITALS (18 sets, daily range): BP systolic 158–178; BP diastolic 94–109; PULSE 73–80; TEMP 37.1; O2SAT 95–97; BMI 45.1
--- NOTE | 2025-01-01 09:35 | XR_ITS ---
The [address] [address] Patient Name: LUMA RIBEIRO MRN: [id number] date: 1945 Sex: F Assigned Patient Location: ER Current Patient Location: ED.MAIN Accession/Order Number: [id number] Exam Date: 01/01/2025 09:52 Report Date: 01/01/2025 10:24 At the request of: ELIAS MAK DO Procedure: XR chest 1V PORTABLE AP ERECT CHEST 0955 hours CLINICAL HISTORY: Chest pain and shortness of breath. Recent ankle surgery 5 days ago. COMPARISON: 06/09/2019 The heart is enlarged. The hilar and mediastinal contours are similar. Mild interstitial changes are again visualized. There is no developing consolidation, sizable effusion or pneumothorax. Degenerative changes are visualized at the spine. There are also degenerative changes at the shoulders and potential chronic dislocation on the right. Shortening of the left clavicle was also seen previously. XR/XR chest 1V IMPRESSION: CARDIOMEGALY AND CHRONIC CHANGES. NO ACUTE FINDINGS. Impression dictated by: Sushila Zeng M.D. 01/01/2025 10:24 AM Dictation Location: [facility] Electronically authenticated by: [id number] Y Date: 01/01/2025 10:24
--- OUTSIDE RECORDS SUMMARY | 2025-01-01 09:38 | XMS_ITS | Encounter Summary ---
Author Organization [facility] Address [address] [place] [address] Care Team Providers Care Telesales Team Leader Name Role Phone Roc Steele MD Primary Care Provider Roc Steele MD Unavailable [phone] Luis Felipe Dugan DO Unavailable [phone] Raya Holt RN Unavailable [phone] Gladis Laird LPN Unavailable Encounter Details Date Type Department Care Team (Late st Contact Info) Description 06/25/2024 Abstract [facility] [place] [facility] [address] [facility] 110 [place] [address] Roc Steele MD [address] [facility] [address] [place] [address] Social History Tobacco Use Types Packs/Day Years [...] Recorded Patient Health Questionnaire-2 Score 0 07/06/2023 [facility] [place] of Occupat ional Health - Occupational Stress [...] EDT Procedure Visit [facility] 112 [facility] [address] [place] [address] Alex Tam DPM 5166 [facility] 5 [place] [address] documented as of this encounter Visit Diagnoses Not on filedocumented in this encounter Additional Health Concerns Assessment Noted Time PHQ-9 Depression Total Score: 0 07/06/19 24 3:00 PM EST documented as of this encounter Care Teams Telesales Team Leader Relationship Specialty Start Date End Date Roc Steele MD [address] [place] [address] [place] [address] PCP - General Internal Medicine 09/28/22 Roc Steele MD [address] [facility] [address] [place] [address] PCP - ACO Reach 08/30/23 Luis Felipe Dugan DO [address] [place] [address] Referring Physician Neurology 03/07/24 Raya Holt, RN [address] [place] [address] Clinical Advocate Family Medicine 06/07/24 07/19/24 Gladis Laird LPN [address] [facility] 110 [place] [address] 07/19/24 documented as of this encounter
--- OUTSIDE RECORDS SUMMARY | 2025-01-01 09:38 | XMS_ITS | Encounter Summary ---
Author Organization [facility] Address [address] [place] [id number] Care Team Providers Care Territory Sales Professional Name Role Phone Roc Steele MD Unavailable [phone] Roc Steele MD Primary Care Provider [phone] Roc Steele MD Unavailable [phone] Luis Felipe Dugan DO Unavailable [phone] Raya Holt RN Unavailable [phone] Gladis Laird LPN Unavailable Encounter Details Date Type Department Care Team (Late st Contact Info) Description 03/02/2023 Abstract [facility] [place] [facility] [address] [facility] 110 [place] [address] Roc Steele MD [address] [facility] 110 [place], [place] [address] Social History Tobacco Use Types Packs/Day Years [...] any clubs o r organizations such as moravian groups, unions, fraternal or athletic groups, or [...] and heating? Not hard at all 11/25/2022 [facility] of Occupat ional Health - Occupational Stress [...] Upcoming Encounters Date Type Department Care Team ([facility] Contact Info) Description 01/02/2025 2:40 PM EDT Procedure Visit [facility] [address] [facility] 120 [place] [address] Alex Tam DPM 3006 [facility] 5 [place] [address] documented as of this encounter Visit Diagnoses Not on filedocumented in this encounter Care Teams Territory Sales Professional Relationship Specialty Start Date End Date Roc Steele MD [address] [facility] 110 [place] [address] PCP - ACO Reach 09/22/22 06/29/23 Roc Steele MD [address] [facility] 110 [place] [address] PCP - General Internal Medicine 09/28/22 Roc Steele MD [address] [facility] 110 [place] [address] PCP - ACO Reach 08/30/23 Luis Felipe Dugan DO [address] [place] [address] Referring Physician Neurology 03/07/24 Raya Holt, CARMEN [address] [place] [address] Clinical Advocate Family Medicine 06/07/24 07/19/24 Gladis Laird LPN [address] [facility] 110 [place] [address] 07/19/24 documented as of this encounter
--- OUTSIDE RECORDS SUMMARY | 2025-01-01 09:38 | XMS_ITS | Encounter Summary ---
Author Organization [facility] Address [address] [place] [address] Care Team Providers Care English Drawer Name Role Phone Roc Steele MD Primary Care Provider [phone] Roc Steele MD Unavailable [phone] Luis Felipe Dugna DO Unavailable [phone] Raya Holt RN Unavailable [phone] Gladis Laird LPN Unavailable Encounter Details Date Type Department Care Team (Late st Contact Info) Description 05/17/2024 Orders Only [facility] [address] [place] [address] [place] [address] Unallocated, Noms Provider, [address] [place], [place] [address] Social History Tobacco Use Types Packs/Day Years [...] Recorded Patient Health Questionnaire-2 Score 0 07/06/2023 [facility] [place] of Occupat ional Health - Occupational Stress [...] [facility] st Contact Info) Description 01/02/2025 2:40 PM EDT Procedure Visit [facility] 112 [facility] 120 [place] [address] Alex Tam DPM 0369 [facility] 5 [place] [address] documented as of this encounter [...] documented as of this encounter Care Teams English Drawer Relationship Specialty Start Date End Date Roc Steele MD [address] [facility] 110 [place] [address] PCP - General Internal Medicine 09/28/22 Roc Steele MD [address] [facility] 110 [place] [address] PCP - ACO Reach 08/30/23 Luis Felipe Dugan DO [address] [place] [address] Referring Physician Neurology 03/07/24 Raya Holt, RN [address] [place] [address] Clinical Advocate Family Medicine 06/07/24 07/19/24 Gladis Laird LPN [address] [facility] 110 [place] [address] 07/19/24 documented as of this encounter
--- OUTSIDE RECORDS SUMMARY | 2025-01-01 09:38 | XMS_ITS | Encounter Summary ---
Author Organization [facility] Address [address] [place] [address] Care Team Providers Care Unemployment Claims Adjudicator Name Role Phone Roc Steele MD Primary Care Provider [phone] Roc Steele MD Unavailable [phone] Luis Felipe Dugan DO Unavailable [phone] Raya Holt RN Unavailable [phone] Gladis Laird LPN Unavailable Encounter Details Date Type Department Care Team (Late st Contact Info) Description 07/11/2024 Abstract [facility] [place] [facility] [address] [facility] 110 [place] [address] Roc Steele MD [address] [facility] [address] [place] [address] Social History Tobacco Use Types Packs/Day Years [...] How often do you attend chur or nondenominational services? Never 11/25/2022 Do you belong to [...] Recorded Patient Health Questionnaire-2 Score 0 07/11/2024 [facility] of Occupat ional Health - Occupational [...] [facility] [address] [place] [address] [place] [address] Alex Tam, DPM 3006 [facility] 5 [place] [address] documented as of this encounter Visit Diagnoses Not on filedocumented in this encounter Additional Health Concerns Assessment Noted Time PHQ-9 Depression Total Score: 0 07/06/19 24 3:00 PM EST documented as of this encounter Care Teams Unemployment Claims Adjudicator Relationship Specialty Start Date End Date Roc Steele MD [address] [facility] 110 [place] [address] PCP - General Internal Medicine 09/28/22 Roc Steele MD [address] [facility] 110 [place] [address] PCP - ACO Reach 08/30/23 Luis Felipe Dugan DO [address] [place], [place] [address] Referring Physician Neurology 03/07/24 Raya Holt, CARMEN [address] [place] [address] Clinical Advocate Family Medicine 06/07/24 07/19/24 Gladis Laird LPN [address] [facility] 110 [place] [address] 07/19/24 documented as of this encounter
--- OUTSIDE RECORDS SUMMARY | 2025-01-01 09:38 | XMS_ITS | Encounter Summary ---
Author Organization [facility] Address [address] [place] [address] Care Team Providers Care Facilities Locator Name Role Phone Roc Steele MD Primary Care Provider [phone] Roc Steele MD Unavailable [phone] Luis Felipe Dugan DO Unavailable [phone] Raya Holt RN Unavailable [phone] Gladis Laird LPN Unavailable Encounter Details Date Type Department Care Team (Late st Contact Info) Description 07/02/2024 Abstract [facility] [place] [facility] [address] [place] [address] [place] [address] Roc Steele MD [address] [facility] [address] [place] [address] Social History Tobacco Use Types Packs/Day Years [...] How often do you attend chur or gnosticism services? Never 11/25/2022 Do you belong to [...] Recorded Patient Health Questionnaire-2 Score 0 07/03/2024 [facility] of Occupat ional Health - Occupational Stress [...] [facility] [address] [place] [address] [place] [address] Alex Tam, DPM 8062 [facility] 5 [place] [address] documented as of this encounter Visit Diagnoses Not on filedocumented in this encounter Additional Health Concerns Assessment Noted Time PHQ-9 Depression Total Score: 0 07/06/19 24 3:00 PM EST documented as of this encounter Care Teams Facilities Locator Relationship Specialty Start Date End Date Roc Steele MD [address] [facility] 110 [place] [address] PCP - General Internal Medicine 09/28/22 Roc Steele MD [address] [facility] 110 [place] [address] PCP - ACO Reach 08/30/23 Luis Felipe Dugan DO [address] [place] [address] Referring Physician Neurology 03/07/24 Raya Holt, RN [address] [place] [address] Clinical Advocate Family Medicine 06/07/24 07/19/24 Gladis Laird LPN [address] [facility] 110 [place] [address] 07/19/24 documented as of this encounter
--- OUTSIDE RECORDS SUMMARY | 2025-01-01 09:38 | XMS_ITS | Encounter Summary ---
Author Organization [facility] Address [address] [place] [address] Care Team Providers Care Mining Teacher Name Role Phone Roc Steele MD Unavailable [phone] Roc Steele MD Primary Care Provider [phone] Roc Steele MD Unavailable [phone] Luis Felipe Dugan DO Unavailable [phone] Raya Holt RN Unavailable [phone] Gladis Laird LPN Unavailable Encounter Details Date Type Department Care Team (Late st Contact Info) Description 12/07/2022 Orders Only [facility] [place] [facility] [address] [place] [address] [place] [address] A, Unknown Practice [address] [place] [id number] Social History Tobacco Use Types Packs/Day Years [...] How often do you attend chur or latter-day services? Never 11/25/2022 Do you belong to [...] and heating? Not hard at all 11/25/2022 [facility] of Occupat ional Health [...] Procedure Visit [facility] [place] [facility] 112 [facility] 120 [place] [address] Alex Tam DPM 5336 [facility] 5 [place] [address] documented as of this encounter [...] on filedocumented in this encounter Care Teams Mining Teacher Relationship Specialty Start Date End Date Roc Steele MD [address] [facility] 110 [place] [address] PCP - ACO Reach 09/22/22 06/29/23 Roc Steele MD [address] [facility] 110 [place] [address] PCP - General Internal Medicine 09/28/22 Roc Steele MD [address] [facility] [address] [place] [address] PCP - ACO Reach 08/30/23 Luis Felipe Dugan DO [address] [place] [address] Referring Physician Neurology 03/07/24 Raya Holt, CARMEN [address] [place] [address] Clinical Advocate Family Medicine 06/07/24 07/19/24 Gladis Laird LPN [address] [facility] 110 [place] [address] 07/19/24 documented as of this encounter
--- OUTSIDE RECORDS SUMMARY | 2025-01-01 09:38 | XMS_ITS ---
Author Organization [facility] Address [address] [place] [address] Care Team Providers Care Feller Seam Operator Name Role Phone Roc Steele MD Primary Care Provider [phone] Roc Steele MD Unavailable [phone] Luis Felipe Dugan DO Unavailable [phone] Gladis Laird LPN Unavailable Chronic Care Management (CCM) Status:Enrolled (Active) Start date:07/30/2016 Enrollment date:07/30/2016 Overview 03/01/23, 9:16 AM - Lydiamonday, LARRY- Patient gives verbal consent to be enrolled in CCM Program and understands there could be a bill for this service. Case Team Name Relationship Phone Gladis Laird LPN(Responsible Staff) [phone] Continued Care and Services Coordination
--- OUTSIDE RECORDS SUMMARY | 2025-01-01 09:38 | XMS_ITS | Encounter Summary ---
Author Organization [facility] Address [address] [place] [address] Care Team Providers Care Carpenter Name Role Phone Roc Steele MD Unavailable [phone] Roc Steele MD Primary Care Provider [phone] Roc Steele MD Unavailable [phone] Luis Felipe Dugan DO Unavailable [phone] Raya Holt RN Unavailable [phone] Gladis Laird LPN Unavailable Encounter Details Date Type Department Care Team (Late st Contact Info) Description 12/07/2022 Abstract [facility] [place] [facility] [address] [facility] 110 [place] [address] Roc Steele MD [address] [facility] 110 [place], [place] [address] Social History Tobacco Use Types Packs/Day Years [...] often do you attend chur ch or jehovah's witness services? Never 11/25/2022 Do [...] Encounters Date Type Department Care Team ([facility] Contact Info) Description 01/02/2025 2:40 PM EDT Procedure Visit [facility] [address] [facility] 120 [place] [address] Alex Tam DPM 3006 [facility] 5 [place] [address] documented as of this encounter Visit Diagnoses Not on filedocumented in this encounter Care Teams Carpenter Relationship Specialty Start Date End Date Roc Steele MD [address] [facility] 110 [place] [address] PCP - ACO Reach 09/22/22 06/29/23 Roc Steele MD [address] [facility] 110 [place] [address] PCP - General Internal Medicine 09/28/22 Roc Steele MD [address] [facility] [address] [place] [address] PCP - ACO Reach 08/30/23 Luis Felipe Dugan DO [address] [place] [address] Referring Physician Neurology 03/07/24 Raya Holt, CARMEN [address] [place] [address] Clinical Advocate Family Medicine 06/07/24 07/19/24 Gladis Laird LPN [address] [facility] 110 [place] [address] 07/19/24 documented as of this encounter
--- OUTSIDE RECORDS SUMMARY | 2025-01-01 09:38 | XMS_ITS | Encounter Summary ---
Author Organization [facility] Address [address] [place] [address] Care Team Providers Care Assembler Plastic Boat Name Role Phone Roc Steele MD Primary Care Provider [phone] Roc Steele MD Unavailable [phone] Luis Felipe Dugan DO Unavailable [phone] Raya Holt RN Unavailable [phone] Gladis Laird LPN Unavailable Encounter Details Date Type Department Care Team (Late st Contact Info) Description 05/16/2024 Abstract [facility] [place] [facility] [address] [facility] 110 [place] [address] Roc Steele MD [address] [facility] [address] [place] [address] Social History Tobacco Use Types Packs/Day Years [...] any clubs o r organizations such as hinduism groups, unions, fraternal or athletic groups, or [...] Recorded Patient Health Questionnaire-2 Score 0 07/06/2023 [facility] [place] of Occupat ional Health - Occupational Stress [...] PODIATRY 112 [facility] [address] [place] [address] Alex Tam DPM 8750 [facility] 5 [place] [address] documented as of this encounter Visit Diagnoses Not on filedocumented in this encounter Additional Health Concerns Assessment Noted Time PHQ-9 Depression Total Score: 0 07/06/19 24 3:00 PM EST documented as of this encounter Care Teams Assembler Plastic Boat Relationship Specialty Start Date End Date Roc Steele MD [address] [place] [address] [place] [address] PCP - General Internal Medicine 09/28/22 Roc Steele MD [address] [facility] [address] [place] [address] PCP - ACO Reach 08/30/23 Luis Felipe Dugan DO [address] [place] [address] Referring Physician Neurology 03/07/24 Raya Holt, RN [address] [place] [address] Clinical Advocate Family Medicine 06/07/24 07/19/24 Gladis Laird LPN [address] [facility] 110 [place] [address] 07/19/24 documented as of this encounter
--- OUTSIDE RECORDS SUMMARY | 2025-01-01 09:38 | XMS_ITS | Encounter Summary ---
Author Organization [facility] Address [address] [place] [address] Care Team Providers Care Power Tool Repair Technician Name Role Phone Roc Steele MD Unavailable [phone] Roc Steele MD Primary Care Provider [phone] Roc Steele MD Unavailable [phone] Luis Felipe Dugan DO Unavailable [phone] Raya Holt RN Unavailable [phone] Gladis Laird LPN Unavailable Encounter Details Date Type Department Care Team (Late st Contact Info) Description 11/23/2022 Orders Only [facility] [place] [facility] [address] [place] [address] [place] [address] A, Unknown Practice [address] [place] [address] Social History Tobacco Use Types Packs/Day Years [...] often do you attend chur ch or yarsani services? Never 11/25/2022 Do you belong to any clubs o r organizations such as hoahaoism groups, unions, fraternal or athletic groups, or [...] Procedure Visit [facility] [address] [facility] 120 [place] [address] Alex Tam DPM 6578 [facility] 5 [place] [address] documented as of this encounter Procedures Procedure [...] on filedocumented in this encounter Care Teams Power Tool Repair Technician Relationship Specialty Start Date End Date Roc Steele MD [address] [place] [address] [place] [address] PCP - ACO Reach 09/22/22 06/29/23 Roc Steele MD [address] [facility] 110 [place] [address] PCP - General Internal Medicine 09/28/22 Roc Steele MD [address] [place] [address] [place] [address] PCP - ACO Reach 08/30/23 Luis Felipe Dugan DO [address] [place] [address] Referring Physician Neurology 03/07/24 Raya Holt, CARMEN [address] [place] [address] Clinical Advocate Family Medicine 06/07/24 07/19/24 Gladis Laird LPN [address] [place] [address] [place] [address] 07/19/24 documented as of this encounter
--- OUTSIDE RECORDS SUMMARY | 2025-01-01 09:38 | XMS_ITS | Encounter Summary ---
Author Organization [facility] Address [address] [place] [address] Care Team Providers Care Java Groovy Developer Name Role Phone Roc Steele MD Primary Care Provider [phone] Roc Steele MD Unavailable [phone] RitchieBulljulianojean-claude JORDAN Unavailable [phone] Gladis Laird LPN Unavailable Encounter Details Date Type Department Care Team (Late st Contact Info) Description 07/23/2024 Abstract [facility] [place] [facility] [address] [facility] 110 [place] [address] Roc Steele MD 112 [facility] 110 [place] [address] Social History Tobacco Use Types Packs/Day Years [...] often do you attend chur ch or amish services? Never 11/25/2022 Do you [...] Recorded Patient Health Questionnaire-2 Score 0 07/11/2024 [facility] of Occupat ional Health - Occupational Stress [...] [facility] Contact Info) Description 01/02/2025 2:40 PM EDT Procedure Visit [facility] [address] [place] [address] Alex Tam DPRen 3005 [facility] 5 [place] [address] documented as of this encounter Visit Diagnoses Not on filedocumented in this encounter Additional Health Concerns Assessment Noted Time PHQ-9 Depression Total Score: 0 07/06/19 24 3:00 PM EST documented as of this encounter Care Teams Java Groovy Developer Relationship Specialty Start Date End Date Roc Steele MD 112 [facility] [address] [place], [place] [address] PCP - General Internal Medicine 09/28/22 Roc Steele MD [address] [place] [address] PCP - ACO Reach 08/30/23 Luis Felipe Dugan DO [address] [place] [address] Referring Physician Neurology 03/07/24 Gladis Laird LPN [address] [place] [address] 07/19/24 documented as of this encounter
--- OUTSIDE RECORDS SUMMARY | 2025-01-01 09:38 | XMS_ITS | Encounter Summary ---
Author Organization [facility] Address [address] [place] [address] Care Team Providers Care Grain Mill Products Inspector Name Role Phone Roc Steele MD Primary Care Provider [phone] Roc Steele MD Unavailable [phone] RitchieBulljulianojean-claude JORDAN Unavailable [phone] Gladis Laird LPN Unavailable Encounter Details Date Type Department Care Team (Late st Contact Info) Description 07/23/2024 Abstract [facility] [place] [facility] [address] [facility] 110 [place] [address] Roc Steele MD 112 [facility] 110 [place] [address] Social History Tobacco Use Types Packs/Day Years [...] Recorded Patient Health Questionnaire-2 Score 0 07/11/2024 [facility] of Occupat ional Health [...] EDT Procedure Visit [facility] [address] [place] [address] Alex Tam DPRen 3001 [facility] 5 [place] [address] documented as of this encounter Visit Diagnoses Not on filedocumented in this encounter Additional Health Concerns Assessment Noted Time PHQ-9 Depression Total Score: 0 07/06/19 24 3:00 PM EST documented as of this encounter Care Teams Grain Mill Products Inspector Relationship Specialty Start Date End Date Roc Steele MD 112 [facility] [address] [place], [place] [id number] PCP - General Internal Medicine 09/28/22 Roc Steele MD [address] [place] [address] PCP - ACO Reach 08/30/23 Luis Felipe Dugan DO [address] [place] [address] Referring Physician Neurology 03/07/24 Gladis Laird LPN [address] [place] [address] 07/19/24 documented as of this encounter
--- OUTSIDE RECORDS SUMMARY | 2025-01-01 09:38 | XMS_ITS | Encounter Summary ---
Author Organization [facility] Address [address] [place] [address] Care Team Providers Care Automatic Beading Lathe Operator Name Role Phone Roc Steele MD Unavailable [phone] Roc Steele MD Primary Care Provider [phone] Roc Steele MD Unavailable [phone] Luis Felipe Dugan DO Unavailable [phone] Raya Holt RN Unavailable [phone] Gladis Laird LPN Unavailable Encounter Details [...] ([facility] st Contact Info) Description 01/02/2025 2:40 PM EDT Procedure Visit [facility] 112 [facility] 120 [place] [address] Alex Tam DPM 3006 [facility] 5 [place] [address] documented as of this encounter Procedures Procedure Name Priority Date/Time Associated Diagnosis Comments XR CHEST 2V 06/22/2023 3:17 PM EST documented in this encounter Results * XR CHEST 2V (06/22/2023 3:17 PM EST) Anatomical Region Laterality Modality Other 06/22/2023 3:17 PM EST Narrative 06/22/2023 3:19 PM EST The [address] [address] XRay Report Signed Patient: USHA WALKER MR#: [id number] : 1945 Acct:[id number] Age/Sex: 77 / F ADM Date: 06/22/23 Loc: LAB Attending Dr: ALEX TAM Ordering Physician: ALEX TAM Date of Service: 06/22/23 Procedure(s): XR chest 2V Accession Number(s): [id number] cc: ROC STEELE ; ALEX TAM The [address] [address] Patient Name: USHA WALKER MRN: [id number] date: 1945 Sex: F Assigned Patient Location: LAB Current Patient Location: LAB Accession/Order Number: [id number] Exam Date: 06/22/2023 14:05 Report Date: 06/22/2023 [...] Signed By: 06/22/23 1519 DD/ 1517 TD/TT: Certified Master Safecracker: Procedure Note Radiology, Radiologist, MD - 06/22/2023 [place] [address] XRay Report Signed Patient: USHA WALKER KMR#: [id number] : 7Acct:[id number] Age/Sex: 77 / FADM Date: 06/22/23 Loc: LAB Attending Dr: ALEX TAM Ordering Physician: ALEX TAM Date of Service: 06/22/23 Procedure(s): XR chest 2V Accession Number(s): [id number] cc: ROC STEELE ; ALEX TAM [address] [address] Patient Name: USHA WALKER MRN: [id number] date: 1945 Sex: F Assigned Patient Location: LAB Current Patient Location: LAB Accession/Order Number: [id number] Exam Date: 06/22/2023 14:05 Report Date: 06/22/2023 [...] M.D. Signed By:06/22/23 1519 DD/ 1517 TD/TT: Certified Master Safecracker: Generic External Data Provider [facility] Final Result documented in this encounter Visit Diagnoses Not on filedocumented in this encounter Care Teams Automatic Beading Lathe Operator Relationship Specialty Start Date End Date Roc Steele MD [address] [facility] 110 [place] [address] PCP - ACO Reach 09/22/22 06/29/23 Roc Steele MD [address] [facility] 110 [place] [address] PCP - General Internal Medicine 09/28/22 Roc Steele MD [address] [place] [address] PCP - ACO Reach 08/30/23 Luis Felipe Dugan DO [address] [place] [address] Referring Physician Neurology 03/07/24 Raya Holt, RN [address] [place], [place] [address] Clinical Advocate Family Medicine 06/07/24 07/19/24 Gladis Laird LPN [address] [facility] 110 [place] [address] 07/19/24 documented as of this encounter
--- OUTSIDE RECORDS SUMMARY | 2025-01-01 09:38 | XMS_ITS | Encounter Summary ---
Author Organization [facility] Address [address] [place] [address] Care Team Providers Care Woven Label Designer Name Role Phone Roc Steele MD Primary Care Provider [phone] Roc Steele MD Unavailable [phone] RitchieBulljulianojean-claude JORDAN Unavailable [phone] Gladis Laird LPN Unavailable Encounter Details Date Type Department Care Team (Late st Contact Info) Description 07/24/2024 Abstract [facility] [place] [facility] [address] [facility] 110 [place] [address] Roc Steele MD 112 [facility] 110 [place] [address] Social History Tobacco Use Types Packs/Day Years [...] Recorded Patient Health Questionnaire-2 Score 0 07/11/2024 [facility] of Occupat ional Health - [...] Upcoming Encounters Date Type Department Care Team ([facility] st Contact Info) Description 01/02/2025 2:40 PM EDT Procedure Visit [facility] [address] [place] [address] Alex Tam DPRen 3005 [facility] 5 [place] [address] documented as of this encounter Visit Diagnoses Not on filedocumented in this encounter Additional Health Concerns Assessment Noted Time PHQ-9 Depression Total Score: 0 07/06/19 24 3:00 PM EST documented as of this encounter Care Teams Woven Label Designer Relationship Specialty Start Date End Date Roc Steele MD 112 [facility] [address] [place], [place] [phone] PCP - General Internal Medicine 09/28/22 Roc Steele MD [address] [place] [address] PCP - ACO Reach 08/30/23 Luis Felipe Dugan DO [address] [place] [address] Referring Physician Neurology 03/07/24 Gladis Laird LPN [address] [place] [address] 07/19/24 documented as of this encounter
--- OUTSIDE RECORDS SUMMARY | 2025-01-01 09:38 | XMS_ITS | Encounter Summary ---
Author Organization [facility] Address [address] [place] [address] Care Team Providers Care Fisheries Diver Name Role Phone Roc Steele MD Primary Care Provider [phone] Roc Steele MD Unavailable [phone] Luis Felipe Dugan DO Unavailable [phone] Gladis Laird LPN Unavailable Encounter Details Date Type Department Care Team (Latest Contact Info) Description 12/03/2024 [facility] [address] [place] [address] [place] [address] MR LUMBAR SPINE WO CON Social History [...] Recorded Patient Health Questionnaire-2 Score 0 10/16/2024 [facility] of Occupat ionoh Health - Occupational Stress Questionnaire Answer Date [...] ([facility] st Contact Info) Description 01/02/2025 2:40 PM EDT Procedure Visit [facility] 112 [facility] 120 [place] [address] Alex Tam DPM 3006 [facility] 5 [place] [address] documented as of this encounter Visit Diagnoses Not on filedocumented in this encounter Additional Health Concerns Assessment Noted Time PHQ-9 Depression Total Score: 0 07/06/19 24 3:00 PM EST documented as of this encounter Care Teams Fisheries Diver Relationship Specialty Start Date End Date Roc Steele MD 112 [facility] 110 [place] [address] PCP - General Internal Medicine 09/28/22 Roc Steele MD [address] [facility] 110 [place] [address] PCP - ACO Reach 08/30/23 Luis Felipe Dugan DO [address] [place] [address] Referring Physician Neurology 03/07/24 Gladis Laird LPN [address] [facility] 110 [place] [address] 07/19/24 documented as of this encounter
--- OUTSIDE RECORDS SUMMARY | 2025-01-01 09:38 | XMS_ITS | Encounter Summary ---
Author Organization [facility] Address [address] [place] [address] Care Team Providers Care Client Associate Name Role Phone Roc Steele MD Primary Care Provider [phone] Roc Steele MD Unavailable [phone] Luis Felipe Dugan DO Unavailable [phone] Raya Holt RN Unavailable [phone] Gladis Laird LPN Unavailable Encounter Details Date Type Department Care Team (Late st Contact Info) Description 03/06/2024 Orders Only [facility] [place] 703 [facility] 353 [place] [address] Aarti Castillo, AURIST [address] [facility] 110 [place] [address] Social History Tobacco Use Types Packs/Day [...] often do you attend chur ch or buddhist services? Never 11/25/2022 Do you [...] Recorded Patient Health Questionnaire-2 Score 0 07/06/2023 [facility] of Occupat ional Health - Occupational Stress [...] EDT Procedure Visit [facility] 112 [facility] 120 [place] [address] Alex Tam DPM 9943 [facility] 5 [place] [address] documented as of this encounter Procedures Procedure Name Priority Date/Time Associated Diagnosis Comments EMG AND NERVE CONDUCTION STUDY Routine 07/28/2021 3:41 PM EDT documented in this encounter Results * EMG AND NERVE CONDUCTION STUDY (07/28/2021 3:41 PM EDT) us Aarti Castillo AURIST NEUROLOGY ORDERABLES Final R esult documented in this encounter Visit Diagnoses Not on filedocumented in this encounter Additional Health Concerns Assessment Noted Time PHQ-9 Depression Total Score: 0 07/06/19 24 3:00 PM EST documented as of this encounter Care Teams Client Associate Relationship Specialty Start Date End Date Roc Steele MD [address] [facility] 110 [place] [address] PCP - General Internal Medicine 09/28/22 Roc Steele MD [address] [facility] 110 [place] [address] PCP - ACO Reach 08/30/23 Luis Felipe Dugan DO [address] [place] [address] Referring Physician Neurology 03/07/24 Raya Holt, CARMEN [address] [place] [address] Clinical Advocate Family Medicine 06/07/24 07/19/24 Gladis Laird LPN [address] [facility] 110 [place] [address] 07/19/24 documented as of this encounter
--- OUTSIDE RECORDS SUMMARY | 2025-01-01 09:38 | XMS_ITS | Encounter Summary ---
Author Organization [facility] Address [address] [place] [address] Care Team Providers Care Bus And Sys Integration Senior Manager Name Role Phone Roc Steele MD Unavailable [phone] Roc Steele MD Primary Care Provider [phone] Roc Steele MD Unavailable [phone] Luis Felipe Dugan DO Unavailable [phone] aRya Holt RN Unavailable [phone] Gladis Laird LPN Unavailable Encounter Details Date Type Department Care Team (Late st Contact Info) Description 03/01/2023 Abstract [facility] [place] [facility] [address] [facility] 110 [place] [address] Aarti Castillo, HEATER WORKER 112 [facility] 110 [place], [place] [address] Social History Tobacco Use Types Packs/Day Years [...] often do you attend chur ch or gnosticism services? Never 11/25/2022 Do you [...] [facility] of Occupat ionva Health - Occupational Stress Questionnaire Answer [...] Encounters Date Type Department Care Team ([facility] Contact Info) Description 01/02/2025 2:40 PM EDT Procedure Visit [facility] [address] [facility] 120 [place] [address] Alex Tam DPM 3006 [facility] 5 [place] [address] documented as of this encounter Visit Diagnoses Not on filedocumented in this encounter Care Teams Bus And Sys Integration Senior Manager Relationship Specialty Start Date End Date Roc Steele MD [address] [facility] 110 [place] [address] PCP - ACO Reach 09/22/22 06/29/23 Roc Steele MD [address] [facility] 110 [place] [address] PCP - General Internal Medicine 09/28/22 Roc Steele MD [address] [facility] 110 [place], [place] [address] PCP - ACO Reach 08/30/23 Luis Felipe Dugan DO [address] [place] [address] Referring Physician Neurology 03/07/24 Raya Holt, RN [address] [place] [address] Clinical Advocate Family Medicine 06/07/24 07/19/24 Gladis Laird LPN [address] [facility] 110 [place] [address] 07/19/24 documented as of this encounter
--- OUTSIDE RECORDS SUMMARY | 2025-01-01 09:38 | XMS_ITS | Encounter Summary ---
Author Organization [facility] Address [address] [place] [address] Care Team Providers Care Weight Reducing Technician Name Role Phone Roc Steele MD Primary Care Provider [phone] Roc Steele MD Unavailable [phone] RitchieBulljulianojean-claude JORDAN Unavailable [phone] Gladis Laird LPN Unavailable Encounter Details Date Type Department Care Team (Late st Contact Info) Description 12/31/2024 Abstract [facility] [place] [facility] [address] [facility] 110 [place] [address] Roc Steele MD 112 [facility] 110 [place] [address] Social History Tobacco Use Types Packs/Day Years [...] Recorded Patient Health Questionnaire-2 Score 0 10/16/2024 [facility] of Occupat ional Health - [...] EDT Procedure Visit [facility] [address] [place] [address] Alex Tam DPRen 3007 [facility] 5 [place] [address] documented as of this encounter Visit Diagnoses Not on filedocumented in this encounter Additional Health Concerns Assessment Noted Time PHQ-9 Depression Total Score: 0 07/06/19 24 3:00 PM EST documented as of this encounter Care Teams Weight Reducing Technician Relationship Specialty Start Date End Date Roc Steele MD 112 [facility] [address] [place], [place] [address] PCP - General Internal Medicine 09/28/22 Roc Steele MD [address] [place] [address] PCP - ACO Reach 08/30/23 Luis Felipe Dugan DO [address] [place] [address] Referring Physician Neurology 03/07/24 Gladis Laird LPN [address] [place] [address] 07/19/24 documented as of this encounter
--- OUTSIDE RECORDS SUMMARY | 2025-01-01 09:38 | XMS_ITS | Encounter Summary ---
Author Organization [facility] Address [address] [place] [address] Care Team Providers Care Assembler Production Line Name Role Phone Roc Steele MD Unavailable [phone] Roc Steele MD Primary Care Provider Roc Steele MD Unavailable [phone] Luis Felipe Dugan DO Unavailable Raya Holt RN Unavailable Gladis Laird LPN Unavailable Encounter Details Date Type Department Care Team (Late st Contact Info) Description 10/07/2022 Orders Only [facility] [place] [facility] [address] [place] [address] Aarti Castillo, ADMINISTRATIVE SUPPORT SPECIALIST [address] [place] [address] Social History Tobacco Use Types Packs/Day Years [...] PODIATRY [address] [place] [address] Alex Tam DPM 3006 [facility] 5 [place] [address] documented as of this encounter Procedures Procedure Name Priority Date/Time Associated Diagnosis Comments POLYSOMNOGRAPHY Routine 10/03/2022 9:04 AM EDT documented in this encounter Results * Polysomnography (10/03/2022 9:04 AM EDT) us Aarti Castillo ADMINISTRATIVE SUPPORT SPECIALIST [facility] ORDERABLES Maggi l Result documented in this encounter Visit Diagnoses Not on filedocumented in this encounter Care Teams Assembler Production Line Relationship Specialty Start Date End Date Roc Steele MD [address] [place] [address] PCP - ACO Reach 09/22/22 06/29/23 Roc Steele MD [address] [place] [address] PCP - General Internal Medicine 09/28/22 Roc Steele MD [address] [place] [address] PCP - ACO Reach 08/30/23 Luis Felipe Dugan DO [address] [place] [address] Referring Physician Neurology 03/07/24 Raya Holt, CARMEN [address] [place] [address] Clinical Advocate Family Medicine 06/07/24 07/19/24 Gladis Laird LPN [address] [place] [address] 07/19/24 documented as of this encounter
--- OUTSIDE RECORDS SUMMARY | 2025-01-01 09:38 | XMS_ITS | Encounter Summary ---
Author Organization [facility] Address [address] [place] [address] Care Team Providers Care Hand Ii Cutter Name Role Phone Roc Steele MD Primary Care Provider [phone] Roc Steele MD Unavailable [phone] Luis Felipe Dugan DO Unavailable [phone] Raya Holt RN Unavailable [phone] Gladis Laird LPN Unavailable Encounter Details Date Type Department Care Team (Late st Contact Info) Description 05/07/2024 Abstract [facility] [place] [facility] [address] [facility] 110 [place] [address] Roc Steele MD [address] [facility] 110 [place] [address] Social History Tobacco Use Types Packs/Day Years [...] How often do you attend chur or advent services? Never 11/25/2022 Do you belong to [...] Patient Health Questionnaire-2 Score 0 07/06/2023 [facility] of Occupat ional Health - Occupational Stress [...] EDT Procedure Visit [facility] 112 [facility] [address] [place] [address] Alex Tam DPM 5589 [facility] 5 [place] [address] documented as of this encounter Visit Diagnoses Not on filedocumented in this encounter Additional Health Concerns Assessment Noted Time PHQ-9 Depression Total Score: 0 07/06/19 24 3:00 PM EST documented as of this encounter Care Teams Hand Ii Cutter Relationship Specialty Start Date End Date Roc Steele MD [address] [place] [address] PCP - General Internal Medicine 09/28/22 Roc Steele MD [address] [facility] 110 [place] [address] PCP - ACO Reach 08/30/23 Luis Felipe Dugan DO [address] [place] [address] Referring Physician Neurology 03/07/24 Raya Holt, RN [address] [place] [address] Clinical Advocate Family Medicine 06/07/24 07/19/24 Gladis Laird LPN [address] [facility] 110 [place] [address] 07/19/24 documented as of this encounter
--- OUTSIDE RECORDS SUMMARY | 2025-01-01 09:38 | XMS_ITS | Encounter Summary ---
Author Organization [facility] Address [address] [place] [address] Care Team Providers Care Auto Transmission Mechanic Name Role Phone Roc Steele MD Unavailable [phone] Roc Steele MD Primary Care Provider [phone] Roc Steele MD Unavailable [phone] Luis Felipe Dugan DO Unavailable [phone] Raya Holt RN Unavailable [phone] Gladis Laird LPN Unavailable Encounter Details [...] any clubs o r organizations such as yarsanism groups, unions, fraternal or athletic groups, or [...] 112 [facility] 120 [place] [address] Alex Tam DPM 3006 [facility] 5 [place] [address] documented as of this encounter Procedures Procedure Name Priority Date/Time Associated Diagnosis Comments ECG 12-LEAD 06/22/2023 2:24 PM EST documented in this encounter Results * ECG 12-LEAD (06/22/2023 2:24 PM EST) Anatomical Region Laterality Modality Other 06/22/2023 2:24 PM EST Narrative 06/22/2023 10:19 PM EST The [address] [address] Electrocardiograph Report Signed Patient: USHA WALKER MR#: [id number] : 1945 Acct:[id number] Age/Sex: 77 / F ADM Date: 06/22/23 Loc: LAB Attending Dr: ALEX TAM Ordering Physician: AELX TAM Date of Service: 06/22/23 Procedure(s): ECG 12 lead Accession Number(s): [id number] cc: The [facility] Test Date: 2023-06-22 Pat Name: USHA WALKER Department: Room: - Gender: Female Stringed Instrument Assembler: : 1945 Requested By: ALEX TAM Order Number: [id number] Reading MD: ELLIS DANIELSON Measurements Intervals [place] Rate: 84 P: 56 [place]: 169 QRS: -28 QRSD: 118 T: 18 [...] D.O. Signed By: 06/22/23221806/22/232218 DD/ 1424 TD/TT: New Car Make Ready Mechanic: Procedure Note Radiology, Radiologist, - 06/22/2023 [place] [address] Electrocardiograph Report Signed Patient: USHA WALKER KMR#: [id number] : 7Acct:[id number] Age/Sex: 77 / FADM Date: 06/22/23 Loc: LAB Attending Dr: ALEX TAM Ordering Physician: ALEX TAM Date of Service: 06/22/23 Procedure(s): ECG 12 lead Accession Number(s): [id number] cc: [facility] Test Date: 2023-06-22 Pat Name: USHA WALKER Department: Room: - Gender: Female Stringed Instrument Assembler: : 1945 Requested By: ALEX TAM Order Number: [id number] Reading MD: ELLIS DANIELSON Measurements Intervals [place] Rate: 84 P: 56 [place]: 169 QRS: -28 QRSD: 118 T: 18 [...] Danielson D.O. Signed By:06/22/23221806/22/232218 DD/ 142 TD/TT: New Car Make Ready Mechanic: Generic External Data Provider [facility] Final Result documented in this encounter Visit Diagnoses Not on filedocumented in this encounter Care Teams Auto Transmission Mechanic Relationship Specialty Start Date End Date Roc Steele MD [address] [facility] 110 [place] [address] PCP - ACO Reach 09/22/22 06/29/23 Roc Steele MD [address] [facility] 110 [place] [address] PCP - General Internal Medicine 09/28/22 Roc Steele MD [address] [facility] 110 [place] [address] PCP - ACO Reach 08/30/23 Luis Felipe Dugan DO [address] [place] [address] Referring Physician Neurology 03/07/24 Raya Holt, RN [address] [place] [address] Clinical Advocate Family Medicine 06/07/24 07/19/24 Gladis Laird LPN [address] [facility] 110 [place] [address] 07/19/24 documented as of this encounter
--- OUTSIDE RECORDS SUMMARY | 2025-01-01 09:38 | XMS_ITS | Encounter Summary ---
Author Organization [facility] Address [address] [place] [address] Care Team Providers Care Inside Sales Professional Name Role Phone Roc Steele MD Primary Care Provider [phone] Roc Steele MD Unavailable [phone] Luis Felipe Dugan DO Unavailable [phone] Gladis Laird LPN Unavailable Encounter Details Date Type Department Care Team (Late st Contact Info) Description 01/01/2025 Patient Outreach [facility] [address] [place] [address] Doris Longo LPN Social History Tobacco Use Types Packs/Day Years [...] Recorded Patient Health Questionnaire-2 Score 0 10/16/2024 [facility] of Occupat ional Health [...] Encounters Date Type Department Care Team ([facility] Contact Info) Description 01/02/2025 2:40 PM EDT Procedure Visit [facility] [address] [place] [address] Alex Tam DPM 3006 [facility] [place] 5 [place] [address] documented as of this encounter Visit Diagnoses Not on filedocumented in this encounter Additional Health Concerns Assessment Noted Time PHQ-9 Depression Total Score: 0 07/06/19 24 3:00 PM EST documented as of this encounter Care Teams Inside Sales Professional Relationship Specialty Start Date End Date Roc Steele MD 112 [facility] [address] [place] [address] PCP - General Internal Medicine 09/28/22 Roc Steele MD [address] [facility] 110 [place] [address] PCP - ACO Reach 08/30/23 Luis Felipe Dugan DO [address] [place] [address] Referring Physician Neurology 03/07/24 Gladis Laird LPN [address] [facility] 110 [place] [address] 07/19/24 documented as of this encounter
--- OUTSIDE RECORDS SUMMARY | 2025-01-01 09:38 | XMS_ITS | Encounter Summary ---
Author Organization [facility] Address [address] [place] [address] Care Team Providers Care Individualized Education Plan Aide Name Role Phone Roc Steele MD Primary Care Provider [phone] Roc Steele MD Unavailable [phone] Luis Felipe Dugan DO Unavailable [phone] Raya Holt RN Unavailable [phone] Gladis Laird LPN Unavailable Encounter Details Date Type Department Care Team (Late st Contact Info) Description 06/10/2024 Orders Only [facility] [address] [place] [address] Unallocated, Noms Provider, [address] [place], [place] [address] Social History Tobacco Use Types Packs/Day Years [...] Recorded Patient Health Questionnaire-2 Score 0 07/06/2023 [facility] [place] of Occupat ional Health - Occupational Stress [...] CI PODIATRY 112 [facility] 120 [place] [address] Alex Tam DPM 6001 [facility] 5 [place] [address] documented as of this encounter [...] documented as of this encounter Care Teams Individualized Education Plan Aide Relationship Specialty Start Date End Date Roc Steele MD [address] [place] [address] PCP - General Internal Medicine 09/28/22 Roc Steele MD [address] [place] [address] PCP - ACO Reach 08/30/23 Luis Felipe Dugan DO [address] [place] [address] Referring Physician Neurology 03/07/24 Raya Holt, RN [address] [facility] [place] [address] Clinical Advocate Family Medicine 06/07/24 07/19/24 Gladis Laird LPN [address] [place] [address] 07/19/24 documented as of this encounter
--- OUTSIDE RECORDS SUMMARY | 2025-01-01 09:38 | XMS_ITS | Encounter Summary ---
Author Organization [facility] Address [address] [place] [address] Care Team Providers Care Supervisor Wound Name Role Phone Roc Steele MD Unavailable [phone] Roc Steele MD Primary Care Provider Roc Steele MD Unavailable [phone] Luis Felipe Dugan DO Unavailable Raya Holt RN Unavailable Gladis Laird LPN Unavailable Encounter Details Date Type Department Care Team (Late st Contact Info) Description 11/14/2022 Orders Only [facility] [place] [facility] [address] [place] [place] [address] Aarti Castillo, [employer] [address] [place] [address] Social History Tobacco Use Types Packs/Day Years [...] PODIATRY [address] [place] [address] Alex Tam DPM 3006 [facility] 5 [place] [address] documented as of this encounter Procedures Procedure Name Priority Date/Time Associated Diagnosis Comments HOME SLEEP TEST Routine 11/04/2022 8:25 AM EDT documented in this encounter Results * Home sleep test (11/04/2022 8:25 AM EDT) us Aarti Castillo [facility] ORDERABLES Maggi l Result documented in this encounter Visit Diagnoses Not on filedocumented in this encounter Care Teams Supervisor Wound Relationship Specialty Start Date End Date Roc Steele MD [address] [place] [address] PCP - ACO Reach 09/22/22 06/29/23 Roc Steele MD [address] [place] [address] PCP - General Internal Medicine 09/28/22 Roc Steele MD [address] [place] [address] PCP - ACO Reach 08/30/23 Luis Felipe Dugan DO [address] [place] [address] Referring Physician Neurology 03/07/24 Raya Holt, CARMEN [address] [place] [address] Clinical Advocate Family Medicine 06/07/24 07/19/24 Gladis Laird LPN [address] [place] [address] 07/19/24 documented as of this encounter
--- OUTSIDE RECORDS SUMMARY | 2025-01-01 09:38 | XMS_ITS | Encounter Summary ---
Author Organization [facility] Address [address] [place] [address] Care Team Providers Care Assembler Wire Group Name Role Phone Roc Steele MD Unavailable [phone] Roc Steele MD Primary Care Provider [phone] Roc Steele MD Unavailable [phone] Luis Felipe Dugan DO Unavailable [phone] Raya Holt RN Unavailable [phone] Gladis Laird LPN Unavailable Encounter Details Date Type Department Care Team (Late st Contact Info) Description 12/02/2022 Orders Only [facility] [place] [facility] [address] [place] [address] A, Unknown Practice 1300 [place] [address] Social History Tobacco Use Types Packs/Day Years [...] often do you attend chur ch or hoahaoism services? Never 11/25/2022 Do you [...] [facility] 120 [place] [address] Alex Tam DPM 300 [facility] 5 [place] [address] documented as of this encounter Procedures Procedure [...] filedocumented in this encounter Care Teams Assembler Wire Group Relationship Specialty Start Date End Date Roc Steele MD [address] [place] [address] PCP - ACO Reach 09/22/22 06/29/23 Roc Steele MD [address] [facility] 110 [place] [address] PCP - General Internal Medicine 09/28/22 Roc Steele MD [address] [facility] 110 [place] [address] PCP - ACO Reach 08/30/23 Luis Felipe Dugan DO [address] [place] [address] Referring Physician Neurology 03/07/24 Raya Holt, RN [address] [place] [address] Clinical Advocate Family Medicine 06/07/24 07/19/24 Gladis Laird LPN 112 [facility] 110 [place] [address] 07/19/24 documented as of this encounter
--- OUTSIDE RECORDS SUMMARY | 2025-01-01 09:38 | XMS_ITS | Encounter Summary ---
Author Organization [facility] Address [address] [place] [address] Care Team Providers Care Supervisor Hot Strip Mill Name Role Phone Roc Steele MD Primary Care Provider [phone] Roc Steele MD Unavailable [phone] RitchieBulljulianojean-claude JORDAN Unavailable [phone] Gladis Laird LPN Unavailable Encounter Details Date Type Department Care Team (Late st Contact Info) Description 11/18/2024 Abstract [facility] [place] [facility] [address] [facility] 110 [place] [address] Roc Steele MD 112 [facility] 110 [place] [address] Social History Tobacco Use Types Packs/Day Years [...] often do you attend chur ch or hinduism services? Never 11/25/2022 Do you [...] Recorded Patient Health Questionnaire-2 Score 0 10/16/2024 [facility] of Occupat ional Health - [...] Upcoming Encounters Date Type Department Care Team ([facility] st Contact Info) Description 01/02/2025 2:40 PM EDT Procedure Visit [facility] [address] [place] [address] Alex Tam DPRen 3009 [facility] 5 [place] [address] documented as of this encounter Visit Diagnoses Not on filedocumented in this encounter Additional Health Concerns Assessment Noted Time PHQ-9 Depression Total Score: 0 07/06/19 24 3:00 PM EST documented as of this encounter Care Teams Supervisor Hot Strip Mill Relationship Specialty Start Date End Date Roc Steele MD 112 [facility] [address] [place], [place] [address] PCP - General Internal Medicine 09/28/22 Roc Steele MD [address] [place] [address] PCP - ACO Reach 08/30/23 Luis Felipe Dugan DO [address] [place] [address] Referring Physician Neurology 03/07/24 Gladis Laird LPN [address] [place] [address] 07/19/24 documented as of this encounter
--- OUTSIDE RECORDS SUMMARY | 2025-01-01 09:38 | XMS_ITS ---
Author Organization [facility] Address [address] [place] [address] Care Team Providers Care Fishing Line Winding Machine Operator Name Role Phone Roc Steele MD Primary Care Provider [phone] Roc Steele MD Unavailable [phone] Luis Felipe Dugan DO Unavailable [phone] Gladis Laird LPN Unavailable Long Term Facility Transitional Care Management Status:Identified (Enrolling) Start date:12/29/2024 Enrollment reason:Identified using hospital discharge data Overview Patient discharged from [facility] on 12/29. Patient admitted to snf. Please contact SNF facility for FRANSISCA (inpt to SNF) within 48 hours. Case Team Name Relationship Phone Doris Longo LPN(Responsible Staff) Licensed Pr actical Nurse [phone] Continued Care and Services Coordination
--- OUTSIDE RECORDS SUMMARY | 2025-01-01 09:38 | XMS_ITS | Clinical Summary ---
Author Organization [facility] Address [address] [place] [address], [address] [place] [address] Care Team Providers Care Digital Director Name Role Phone Unavailable Primary Care Provider [...]
--- OUTSIDE RECORDS SUMMARY | 2025-01-01 09:38 | XMS_ITS | Encounter Summary ---
Author Organization [facility] Address [address] [place] [address] Care Team Providers Care Dye Line Operator Name Role Phone Roc Steele MD Primary Care Provider [phone] Roc Steele MD Unavailable [phone] Luis Felipe Dugan DO Unavailable [phone] Raya Holt RN Unavailable [phone] Gladis Laird LPN Unavailable Encounter Details Date Type Department Care Team (Late st Contact Info) Description 07/11/2024 Abstract [facility] [place] [facility] [address] [facility] 110 [place] [address] Roc Steele MD [address] [facility] 110 [place] [address] Social History Tobacco Use Types Packs/Day Years [...] Recorded Patient Health Questionnaire-2 Score 0 07/11/2024 [facility] [place] of Occupat ional Health - Occupational Stress [...] [facility] [address] [place] 120 [place] [address] Alex Tam, DPM 3006 [facility] 5 [place] [address] documented as of this encounter Visit Diagnoses Not on filedocumented in this encounter Additional Health Concerns Assessment Noted Time PHQ-9 Depression Total Score: 0 07/06/19 24 3:00 PM EST documented as of this encounter Care Teams Dye Line Operator Relationship Specialty Start Date End Date Roc Steele MD [address] [facility] 110 [place] [address] PCP - General Internal Medicine 09/28/22 Roc Steele MD [address] [facility] 110 [place] [address] PCP - ACO Reach 08/30/23 Luis Felipe Dugan DO [address] [place], [place] [address] Referring Physician Neurology 03/07/24 Raya Holt, CARMEN [address] [place] [address] Clinical Advocate Family Medicine 06/07/24 07/19/24 Gladis Laird LPN [address] [facility] 110 [place] [address] 07/19/24 documented as of this encounter
--- OUTSIDE RECORDS SUMMARY | 2025-01-01 09:39 | XMS_ITS | Encounter Summary ---
Author Organization [facility] Address [address] [place] [address] Care Team Providers Care Data Collection Associate Name Role Phone Roc Steele MD Unavailable [phone] Roc Steele MD Primary Care Provider [phone] Roc Steele MD Unavailable [phone] Luis Felipe Dugan DO Unavailable [phone] Raya Holt RN Unavailable [phone] Gladis Laird LPN Unavailable Encounter Details Date Type Department Care Team (Late st Contact Info) Description 12/07/2022 Abstract [facility] [place] [facility] [address] [facility] 110 [place] [address] Roc Steele MD [address] [facility] 110 [place], [place] [address] Social History Tobacco Use Types Packs/Day Years [...] Upcoming Encounters Date Type Department Care Team ([facility] Contact Info) Description 01/02/2025 2:40 PM EDT Procedure Visit [facility] [address] [facility] 120 [place] [address] Alex Tam DPM 3006 [facility] 5 [place] [address] documented as of this encounter Visit Diagnoses Not on filedocumented in this encounter Care Teams Data Collection Associate Relationship Specialty Start Date End Date Roc Steele MD [address] [facility] 110 [place] [address] PCP - ACO Reach 09/22/22 06/29/23 Roc Steele MD [address] [facility] 110 [place] [address] PCP - General Internal Medicine 09/28/22 Roc Steele MD [address] [facility] 110 [place] [address] PCP - ACO Reach 08/30/23 Luis Felipe Dugan DO [address] [place] [address] Referring Physician Neurology 03/07/24 Raya Holt, CARMEN [address] [place] [address] Clinical Advocate Family Medicine 06/07/24 07/19/24 Gladis Laird LPN [address] [facility] 110 [place] [address] 07/19/24 documented as of this encounter
--- OUTSIDE RECORDS SUMMARY | 2025-01-01 09:39 | XMS_ITS | Encounter Summary ---
Author Organization [facility] Address [address] [place] [address] Care Team Providers Care Medical Chief Technician Name Role Phone Roc Steele MD Primary Care Provider [phone] Roc Steele MD Unavailable [phone] Luis Felipe Dugan DO Unavailable [phone] Raya Holt RN Unavailable [phone] Gladis Laird LPN Unavailable Encounter Details Date Type Department Care Team (Late st Contact Info) Description 05/20/2024 Abstract [facility] [place] [facility] [address] [facility] 110 [place] [address] Roc Steele MD [address] [facility] 110 [place] [address] Social History Tobacco Use Types Packs/Day Years [...] Recorded Patient Health Questionnaire-2 Score 0 07/06/2023 [facility] [place] of Occupat ional Health - Occupational Stress [...] 112 [facility] [address] [place] [address] Alex Tam DPM 9126 [facility] 5 [place] [address] documented as of this encounter Visit Diagnoses Not on filedocumented in this encounter Additional Health Concerns Assessment Noted Time PHQ-9 Depression Total Score: 0 07/06/19 24 3:00 PM EST documented as of this encounter Care Teams Medical Chief Technician Relationship Specialty Start Date End Date Roc Steele MD [address] [place] [address] PCP - General Internal Medicine 09/28/22 Roc Steele MD [address] [facility] [address] [place] [address] PCP - ACO Reach 08/30/23 Luis Felipe Dugan DO [address] [place] [address] Referring Physician Neurology 03/07/24 Raya Holt, RN [address] [place] [address] Clinical Advocate Family Medicine 06/07/24 07/19/24 Gladis Laird LPN [address] [facility] 110 [place] [address] 07/19/24 documented as of this encounter
--- OUTSIDE RECORDS SUMMARY | 2025-01-01 09:39 | XMS_ITS | Encounter Summary ---
Author Organization [facility] Address [address] [place] [address] Care Team Providers Care Striping Machine Operator Name Role Phone Roc Steele MD Primary Care Provider [phone] Roc Steele MD Unavailable [phone] Luis Felipe Dugan DO Unavailable [phone] Raya Holt RN Unavailable [phone] Gladis Laird LPN Unavailable Encounter Details Date Type Department Care Team (Late st Contact Info) Description 10/16/2023 Abstract [facility] [place] [facility] [address] [facility] 110 [place] [address] Roc Steele MD [address] [facility] 110 [place] [address] Social History Tobacco Use Types Packs/Day Years [...] 0 07/06/2023 [facility] of Occupat ional Health - [...] Upcoming Encounters Date Type Department Care Team ([facility] Contact Info) Description 01/02/2025 2:40 PM EDT Procedure Visit [facility] [address] [facility] 120 [place] [address] Alex Tam DPM 3006 [facility] 5 [place] [address] documented as of this encounter Visit Diagnoses Not on filedocumented in this encounter Additional Health Concerns Assessment Noted Time PHQ-9 Depression Total Score: 0 07/06/19 24 3:00 PM EST documented as of this encounter Care Teams Striping Machine Operator Relationship Specialty Start Date End Date Roc Steele MD 112 [facility] 110 [place] [address] PCP - General Internal Medicine 09/28/22 Roc Steele MD [address] [facility] 110 [place] [address] PCP - ACO Reach 08/30/23 Luis Felipe Dugan DO [address] [place] [address] Referring Physician Neurology 03/07/24 Raya Holt, CARMEN [address] [place], [place] [address] Clinical Advocate Family Medicine 06/07/24 07/19/24 Gladis Laird LPN [address] [facility] 110 [place] [address] 07/19/24 documented as of this encounter
--- OUTSIDE RECORDS SUMMARY | 2025-01-01 09:39 | XMS_ITS | Encounter Summary ---
Author Organization [facility] Address [address] [place] [address] Care Team Providers Care Covered Button Maker Name Role Phone Roc Steele MD Primary Care Provider Roc Steele MD Unavailable [phone] Luis Felipe Dugan DO Unavailable [phone] Raya Holt RN Unavailable [phone] Gladis Laird LPN Unavailable Encounter Details Date Type Department Care Team (Late st Contact Info) Description 05/21/2024 Abstract [facility] [place] [facility] [address] [facility] 110 [place] [address] Roc Steele MD [address] [facility] [address] [place] [address] Social History Tobacco Use Types Packs/Day Years [...] Recorded Patient Health Questionnaire-2 Score 0 07/06/2023 [facility] of Occupat ional Health - Occupational Stress [...] EDT Procedure Visit [facility] [address] [facility] [address] [place] [address] Alex Tam DPM 4190 [facility] 5 [place] [address] documented as of this encounter Visit Diagnoses Not on filedocumented in this encounter Additional Health Concerns Assessment Noted Time PHQ-9 Depression Total Score: 0 07/06/19 24 3:00 PM EST documented as of this encounter Care Teams Covered Button Maker Relationship Specialty Start Date End Date Roc Steele MD [address] [place] [address] [place] [address] PCP - General Internal Medicine 09/28/22 Roc Steele MD [address] [facility] [address] [place] [address] PCP - ACO Reach 08/30/23 Luis Felipe Dugan DO [address] [place] [address] Referring Physician Neurology 03/07/24 Raya Holt, RN [address] [place] [address] Clinical Advocate Family Medicine 06/07/24 07/19/24 Gladis Laird LPN [address] [facility] [address] [place] [address] 07/19/24 documented as of this encounter
--- OUTSIDE RECORDS SUMMARY | 2025-01-01 09:39 | XMS_ITS | Encounter Summary ---
Author Organization [facility] Address [address] [place] [address] Care Team Providers Care Golf Club Maker Name Role Phone Roc Steele MD Primary Care Provider Roc Steele MD Unavailable [phone] RitchieBulljulianojean-claude JORDAN Unavailable [phone] Gladis Laird LPN Unavailable Encounter Details Date Type Department Care Team (Late st Contact Info) Description 08/20/[address] [place] [facility] [address] [facility] 110 [place] [address] Roc Steele MD 112 [facility] 110 [place] [address] Social History Tobacco Use Types Packs/Day Years [...] Recorded Patient Health Questionnaire-2 Score 0 08/19/2024 [facility] of Occupat ional Health - Occupational [...] Upcoming Encounters Date Type Department Care Team ([facility] st Contact Info) Description 01/02/2025 2:40 PM EDT Procedure Visit [facility] [address] [place] [address] Alex Tam DPRen 3004 [facility] 5 [place] [address] documented as of this encounter Visit Diagnoses Not on filedocumented in this encounter Additional Health Concerns Assessment Noted Time PHQ-9 Depression Total Score: 0 07/06/19 24 3:00 PM EST documented as of this encounter Care Teams Golf Club Maker Relationship Specialty Start Date End Date Roc Steele MD 112 [facility] [address] [place], [place] [phone] PCP - General Internal Medicine 09/28/22 Roc Steele MD [address] [place] [address] PCP - ACO Reach 08/30/23 Luis Felipe Dugan DO [address] [place] [address] Referring Physician Neurology 03/07/24 Gladis Laird LPN [address] [place] [address] [place] [address] 07/19/24 documented as of this encounter
--- OUTSIDE RECORDS SUMMARY | 2025-01-01 09:39 | XMS_ITS | Encounter Summary ---
Author Organization [facility] Address [address] [place] [address] Care Team Providers Care Public Speaking Coach Name Role Phone Roc Steele MD Primary Care Provider [phone] Roc Steele MD Unavailable [phone] RitchieBulljulianojean-claude JORDAN Unavailable [phone] Gladis Laird LPN Unavailable Encounter Details Date Type Department Care Team (Late st Contact Info) Description 08/07/2024 Abstract [facility] [place] [facility] [address] [facility] 110 [place] [address] Roc Steele MD 112 [facility] 110 [place] [address] Social History Tobacco Use Types Packs/Day Years [...] any clubs o r organizations such as episcopalian groups, unions, fraternal or athletic groups, or [...] Recorded Patient Health Questionnaire-2 Score 0 08/01/2024 [facility] of Occupat ional Health [...] [facility] st Contact Info) Description 01/02/2025 2:40 PM EDT Procedure Visit [facility] [address] [place] [address] Alex Tam DPRen 3004 [facility] 5 [place] [address] documented as of this encounter Visit Diagnoses Not on filedocumented in this encounter Additional Health Concerns Assessment Noted Time PHQ-9 Depression Total Score: 0 07/06/19 24 3:00 PM EST documented as of this encounter Care Teams Public Speaking Coach Relationship Specialty Start Date End Date Roc Steele MD 112 [facility] [address] [place], [place] [address] PCP - General Internal Medicine 09/28/22 Roc Steele MD [address] [place] [address] PCP - ACO Reach 08/30/23 Luis Felipe Dugan DO [address] [place] [address] Referring Physician Neurology 03/07/24 Gladis Laird LPN [address] [place] [place] [address] 07/19/24 documented as of this encounter
--- OUTSIDE RECORDS SUMMARY | 2025-01-01 09:39 | XMS_ITS | Encounter Summary ---
Author Organization [facility] Address [address] [place] [address] Care Team Providers Care Glass Etcher Name Role Phone Roc Steele MD Primary Care Provider [phone] Roc Steele MD Unavailable [phone] RitchieBulljulianojean-claude JORDAN Unavailable [phone] Gladis Laird LPN Unavailable Encounter Details Date Type Department Care Team (Late st Contact Info) Description 08/20/2024 Abstract [facility] [place] [facility] [address] [facility] 110 [place] [address] Roc Steele MD 112 [facility] 110 [place] [address] Social History Tobacco Use Types Packs/Day Years [...] Recorded Patient Health Questionnaire-2 Score 0 08/19/2024 [facility] of Occupat ional Health - Occupational Stress [...] EDT Procedure Visit [facility] [address] [place] [address] Alex Tam DPRen [facility] 5 [place] [address] documented as of this encounter Visit Diagnoses Not on filedocumented in this encounter Additional Health Concerns Assessment Noted Time PHQ-9 Depression Total Score: 0 07/06/19 24 3:00 PM EST documented as of this encounter Care Teams Glass Etcher Relationship Specialty Start Date End Date Roc Steele MD 112 [facility] [address] [place], [place] [phone] PCP - General Internal Medicine 09/28/22 Roc Steele MD [address] [place] [address] PCP - ACO Reach 08/30/23 Luis Felipe Dugan DO [address] [place] [address] Referring Physician Neurology 03/07/24 Gladis Laird LPN [address] [place] [address] 07/19/24 documented as of this encounter
--- OUTSIDE RECORDS SUMMARY | 2025-01-01 09:39 | XMS_ITS | Encounter Summary ---
Author Organization [facility] Address [address] [place] [address] Care Team Providers Care Meter Calibrator Name Role Phone Roc Steele MD Primary Care Provider [phone] Roc Steele MD Unavailable [phone] Luis Felipe Dugan DO Unavailable [phone] Raya Holt RN Unavailable [phone] Gladis Laird LPN Unavailable Encounter Details Date Type Department Care Team (Late st Contact Info) Description 05/30/2024 Abstract [facility] [place] [facility] [address] [facility] 110 [place] [address] Roc Steele MD [address] [facility] [address] [place] [address] Social History Tobacco Use Types Packs/Day Years [...] How often do you attend chur or rastafarian services? Never 11/25/2022 Do you [...] Recorded Patient Health Questionnaire-2 Score 0 07/06/2023 [facility] of Occupat ional Health - Occupational Stress [...] PODIATRY 112 [facility] [address] [place] [address] Alex Tam DPM 4185 [facility] 5 [place] [address] documented as of this encounter Visit Diagnoses Not on filedocumented in this encounter Additional Health Concerns Assessment Noted Time PHQ-9 Depression Total Score: 0 07/06/19 24 3:00 PM EST documented as of this encounter Care Teams Meter Calibrator Relationship Specialty Start Date End Date Roc Steele MD [address] [place] [address] PCP - General Internal Medicine 09/28/22 Roc Steele MD [address] [facility] [address] [place] [address] PCP - ACO Reach 08/30/23 Luis Felipe Dugan DO [address] [place] [address] Referring Physician Neurology 03/07/24 Raya Holt, RN [address] [place] [address] Clinical Advocate Family Medicine 06/07/24 07/19/24 Gladis Laird LPN [address] [facility] 110 [place] [address] 07/19/24 documented as of this encounter
--- OUTSIDE RECORDS SUMMARY | 2025-01-01 09:39 | XMS_ITS | Encounter Summary ---
Author Organization [facility] Address [address] [place] [address] Care Team Providers Care Sawmill Relief Worker Name Role Phone Roc Steele MD Unavailable [phone] Roc Steele MD Primary Care Provider [phone] Roc Steele MD Unavailable [phone] Luis Felipe Dugan DO Unavailable [phone] Raya Holt RN Unavailable [phone] Gladis Laird LPN Unavailable Encounter Details Date Type Department Care Team (Late st Contact Info) Description 12/25/2022 Abstract [facility] [place] [facility] 112 [facility] 170 [place] [address] Josue Mayer, PT 112 [facility] 170 [place] [address] Social History Tobacco Use Types Packs/Day Years [...] Upcoming Encounters Date Type Department Care Team ([facility] Contact Info) Description 01/02/2025 2:40 PM EDT Procedure Visit [facility] [address] [facility] 120 [place] [address] Alex Tam DPM 3006 [facility] 5 [place] [address] documented as of this encounter Visit Diagnoses Not on filedocumented in this encounter Care Teams Sawmill Relief Worker Relationship Specialty Start Date End Date Roc Steele MD [address] [facility] 110 [place], [place] [address] PCP - ACO Reach 09/22/22 06/29/23 Roc Steele MD [address] [facility] [address] [place], [place] [address] PCP - General Internal Medicine 09/28/22 Roc Steele MD [address] [place], [place] [address] PCP - ACO Reach 08/30/23 Luis Felipe Dugan DO [address] [place] [address] Referring Physician Neurology 03/07/24 Raya Holt, RN [address] [place], [place] [address] Clinical Advocate Family Medicine 06/07/24 07/19/24 Gladis Laird LPN [address] [place] [address] 07/19/24 documented as of this encounter
--- OUTSIDE RECORDS SUMMARY | 2025-01-01 09:39 | XMS_ITS | Encounter Summary ---
Author Organization [facility] Address [address] [place] [address] Care Team Providers Care Farm Management Agent Name Role Phone Roc Steele MD Primary Care Provider [phone] Roc Steele MD Unavailable [phone] Luis Felipe Dugan DO Unavailable [phone] Raya Holt RN Unavailable [phone] Gladis Laird LPN Unavailable Encounter Details Date Type Department Care Team (Late st Contact Info) Description 07/13/2023 Abstract [facility] [place] [facility] [address] [facility] 110 [place] [address] Roc Steele MD [address] [facility] [address] [place] [address] Social History Tobacco Use Types Packs/Day Years [...] 07/06/2023 [facility] of Occupat ional Health - Occupational [...] Upcoming Encounters Date Type Department Care Team ([facility] Contact Info) Description 01/02/2025 2:40 PM EDT Procedure Visit [facility] 112 [facility] 120 [place] [address] Alex Tam DPM 3006 [facility] 5 [place] [address] documented as of this encounter Visit Diagnoses Not on filedocumented in this encounter Additional Health Concerns Assessment Noted Time PHQ-9 Depression Total Score: 0 07/06/19 24 3:00 PM EST documented as of this encounter Care Teams Farm Management Agent Relationship Specialty Start Date End Date Roc Steele MD 112 [facility] 110 [place] [address] PCP - General Internal Medicine 09/28/22 Roc Steele MD [address] [facility] 110 [place] [address] PCP - ACO Reach 08/30/23 Luis Felipe Dugan DO [address] [place] [address] Referring Physician Neurology 03/07/24 Raya Holt, CARMEN [address] [place], [place] [address] Clinical Advocate Family Medicine 06/07/24 07/19/24 Gladis Laird LPN [address] [facility] 110 [place] [address] 07/19/24 documented as of this encounter
--- OUTSIDE RECORDS SUMMARY | 2025-01-01 09:39 | XMS_ITS | Clinical Summary ---
Author Organization [facility] Address [address] [place] [address] Phone Care Team Providers Care Fourth Hand Name Role Phone Roc Steele MD Primary Care Provider [phone] Allergies Active Allergy Reactions Criticality Noted Date Comments Moxifloxacin Angioedema 07/15/2024 Ciprofloxacin Unknown 07/15/2024 Sulfa (Sulfonamide Antibiotics) Unknown 06/29 Medications HYDROcodone-acetami nophen (Greenup) 5-325 mg tablet Take 1 tablet by [...] as needed at bedtime for anxiety. Active xipftmjidgxn-Il-oha n-minerals tablet Take 1 tablet by mouth [...] Travel 2024 2:15 PM EDT Office Visit [address] [phone] Rc Kern MD Encounter to discuss test [...] Description 04/28/2025 1:00 PM EST Ancillary Procedure [address] [id number] 05/16/2025 2:00 PM EST Office Visit [address] [phone] Rc Kern MD [address] [facility] 130 [place] [address] Health Maintenance Due Date Last Done Comments [...] Sigmoidoscopy Discontinued Medical Devices Implanted Type Area Msws Device Identifier Shelf Expiration Date Model / Serial / Lot Screw, Low Profile Hex, 6.5 X 15 Mm Case [id number] Implanted:Qty: 1 on 01/29/2020 by Micah Bird MD Implant Right: Hip HELENA Stockleap 06/30/2023 [id number] / / 5MM Description:Converted from [facility]. Please see archived information for full log information. Screw, Low Profile Hex, 6.5 X 25 Mm Case [id number] Implanted:Qty: 1 on 01/29/2020 by Micah Bird MD Implant Right: Hip HELENA Stockleap 06/01/2024 [id number] / / [id number] Description:Converted from [facility]. Please see archived information for full log information. Head, Femur V40 36mm +2.5mm Biolox Delta Case [id number] Implanted:Qty: 1 on 01/29/2020 by Micah Bird MD Joint Right: Hip HELENA Stockleap 11/29/2024 [id number] / / [id number] Description:Converted from [facility]. Please see archived information for full log information. Stem, Femur 132d Sz 5 Accolade Ii Case [id number] Implanted:Qty: 1 on 01/29/2020 by Micah Bird MD Joint Right: Hip HELENA Stockleap 09/29/2024 [id number] / / [id number] Description:Converted from [facility]. Please see archived information for full log information. Shell, Trident Ii, Clusterhole, [place] 52e Case [id number] Implanted:Qty: 1 on 01/29/2020 by Micah Bird MD Joint Right: Hip HELENA Stockleap 06/30/2023 [id number] / / [id number] Description:Converted from [facility]. Please see archived information for full log information. Liners, Poly 36 X 10 D Trid Crossfire E Case [id number] Implanted:Qty: 1 on 01/29/2020 by Micah Bird MD Joint Right: Hip [email or web address] 10/30/2023 [id number] / / [id number] Description:Converted from [facility] Care Acute. Please see archived information for [...] Narrative SYNGO - 09/18/2024 6:10 PM EDT [address], [address] [facility], [place] [address] TRANSTHORACIC ECHOCARDIOGRAM REPORT Patient Name: USHA Deal Physician: [id number] David Castle MD, [facility] Study Date: 09/18/2024 Ordering Provider: [id number] RC KERN MRN/PID: [id number] Fellow: Nurse: Date of /Age: 7 1945 Shield Operator: Viry Quigley years RDCS, RVT Gender Assigned at F Additional Staff: : Height: 162.56 cm Admit Date: Weight: 122.02 kg Admission Status: Outpatient BSA / BMI: 2.22 m2 / 46.17 Department Location: [facility] Heart kg/m2 [place] Blood Pressure: 124 /86 mmHg Study Type: TRANSTHORACIC ECHO (TTE) COMPLETE Diagnosis/ICD: Supraventricular tachycardia-I47.1; Abnormal electrocardiogram [ECG] [EKG]-R94.31; Palpitations-R00.2 Indication: Edema, HTN, Hyperlipidemia, Carotid Stenosis, CARO, CKD-Stage III, Morbid Obesity CPT Codes: Echo Complete w Full Doppler-[id number] Study Detail: The following Echo studies were [...] (0.6-0.9m/s) AORTA: Asc Ao Diam 2.66 cm [id number] David Castle MD, [facility] Electronically signed on 09/18/2024 at 6:10:05 PM Final Procedure Note David Castle MD - 09/18/[address], [address] [facility], [place] [address] TRANSTHORACIC ECHOCARDIOGRAM REPORT Patient Name: USHA Deal Physician: [id number] Castle MD,FAC Study Date: 09/18/2024 Ordering Provider: JO KERN MRN/PID: [id number] Fellow: Nurse: Date of /Age: 7 1945 / 78 Shield Operator: David ely RDCS, RVT Gender Assigned at F Additional Staff: : Height: 162.56 cm Admit Date: Weight: 122.02 kg Admission Status: Outpatient BSA / BMI: 2.22 m2 / 46.17 [facility] [place] Blood Pressure: 124 /86 mmHg Study Type: TRANSTHORACIC ECHO (TTE) COMPLETE Diagnosis/ICD: Supraventricular tachycardia-I47.1; Abnormalelectrocardiogram [ECG] [EKG]-R94.31; Palpitations-R00.2 Indication: Edema, HTN, Hyperlipidemia, Carotid Stenosis, CARO,CKD-Stage III, Morbid Obesity CPT Codes: Echo Complete w Full Doppler-[id number] Study Detail: The following Echo studies were [...] (0.6-0.9m/s) AORTA: Asc Ao Diam 2.66 cm [id number] David Castle MD, FACC Electronically signed on 09/18/2024 at 6:10:05 PM Final us Rc Kern MD CV ECHO PROCEDURES Final Result SYNGO * (ABNORMAL) Basic Metabolic Panel (01/30/2020 5:25 AM EDT) Glucose 128(H) 74 - 99 mg/dL [facility] Sodium 137 136 - 145 mmol/L [facility] Potassium 4.2 3.5 - 5.3 mmol/L [facility] Chloride 101 98 - 107 mmol/L [facility] Bicarbonate 32 21 - 32 mmol/L [facility] Anion Gap 8(L) 10 - 20 mmol/L [facility] Urea Nitrogen 14 6 - 23 mg/dL [facility] Creatinine 1.00 0.50 - 1.05 mg/dL [facility] GLOMERULAR FILTRATION RATE-NON 54(A) >60 mL/min/1.7 3m2 [facility] GLOMERULAR FILTRATION RATE- 65 >60 mL/min/1.7 3m2 [facility] Comment: CALCULATIONS OF ESTIMATED GFR ARE PERFORMED USING THE MDRD STUDY EQUATION FOR THE IDMS-TRACEABLE CREATININE METHODS. CLIN CHEM 2007;53:766-72 Calcium 8.8 8.6 - 10.3 mg/dL [facility] 01/30/2020 5:25 AM EDT 01/30/2020 6:26 AM EDT us Micah Bird MD LAB BLOOD ORDERABLES Final Res ult [facility] from Last 3 Months or Most Recently Relevant to Health Maintenance Insurance GENERIC COMMERCIAL MEDICARE PART A AND B GENERIC COMMERCIAL MEDICARE PART A AND B Care Teams Fourth Hand Relationship Specialty Start Date End Date Roc Steele MD [address] [facility] 110 [place] [address] PCP - General 10/04/22
--- OUTSIDE RECORDS SUMMARY | 2025-01-01 09:39 | XMS_ITS | Clinical Summary ---
Author Organization [facility] Address [address] [place] [address] Care Team Providers Care Agitator Operator Name Role Phone Roc Steele MD Primary Care Provider Roc Steele MD Unavailable [phone] Luis Felipe Dugan DO Unavailable [phone] Gladis Laird LPN Unavailable Allergies Active Allergy [...] Encounters Date Type Department Care Team Description 01/01/[address] [facility] [address] [place] [phone] Doris Longo LPN 12/31/2024 [facility] [address] [place] [address] [place] [address] Roc Steele MD 12/03/2024 [facility] [address] [place] [address] [place] [address] MR LUMBAR SPINE WO CON 11/18/2024 [facility] [address] [place] [address] [place] [address] Roc Steele MD 10/29/2024 Patient Outreach [facility] [place] [address] Gladis LairdLARRY 10/16/2024 11:30 AM EDT Office Visit [facility] [address] [place] [address] [place] [address] Aarti Castillo NP Acute low back pain without sciatica, unspecified back pain laterality (Primary Dx) 10/16/2024 Refill [facility] [address] [place] [address] [place] [address] Roc Steele MD Lumbosacral spondylosis without myelopathy 10/16/2024 Bamboo flowsheet [facility] [address] [place] [address] [place] [address] Aarti Castillo NP 10/16/2024 Travel 10/10/2024 3:00 PM EDT Procedure Visit [facility] [address] [place] [address] [place] [address] Alex Tam, DPM Pain due to onychomycosis of toenails of both feet (Primary Dx) 10/10/2024 Travel 10/10/2024 Refill [facility] [facility] [address] [place] [address] [place] [address] Roc Steele MD Primary insomnia; Anxiety; Hyperlipidemia, unspecified hyperlipidemia type 10/10/2024 Refill [facility] [facility] [address] [place] [address] [place] [address] Aarti Castillo NP Primary osteoarthritis involving multiple joints; Benign essential hypertension 10/07/2024 Refill [facility] [facility] [address] [place] [address] [place] [address] Aarti Castillo NP Primary insomnia 10/02/2024 Refill [facility] [facility] [address] [place] [address] [place] [address] Aarti Castillo, DEISY Acute low back pain without sciatica, unspecified back pain laterality 10/01/2024 Clinisync Result Encounter [facility] External Department Unsolicited Provider, Generic External Data 10/01/2024 Abstract [facility] [place] [facility] [address] [place] [address] [place] [address] Roc Steele MD from Last 3 Months [...] Recorded Patient Health Questionnaire-2 Score 0 10/16/2024 [facility] of Occupat ional Health - Occupational Stress [...] CI PODIATRY 112 [facility] 120 [place] [address] Alex Tam DPM 3006 [facility] 5 [place] [address] Health Maintenance Due Date Last Done Comments [...] PM EDT Narrative 10/01/2024 2:37 PM EDT The [address] [address] Magnetic Resonance Report Signed Patient: USHA WALKER MR#: [id number] : 1945 Acct:[id number] Age/Sex: 78 / F ADM Date: 10/01/24 Loc: MRI Attending Dr: Ml Sanchez M.D. Ordering Physician: Ml Sanchez M.D. Date of Service: 10/01/24 Procedure(s): MR lumbar spine wo con Accession Number(s): [id number] cc: ROC STEELE ; Ml Sanchez M.D. The [address] [address] Patient Name: USHA WALKER MRN: [facility]:[id number] date: 1945 Sex: F Assigned Patient Location: MRI Current Patient Location: MRI Accession/Order Number: [id number] Exam Date: 10/01/2024 14:28 Report Date: 10/01/2024 [...] Bach M.D. 10/01/2024 2:34 PM Dictation Location: [place] [address] Electronically authenticated by: [id number] Y Date: 10/01/2024 14:34 Dictated By: Sj Bach M.D. Signed By: 10/01/24 1437 DD/ 1434 TD/TT: Machine Straw Hat Presser: Procedure Note Radiology, Radiologist, - 10/01/2024 [place] [address] Magnetic Resonance Report Signed Patient: USHA WALKER KMR#: [id number] : 1945cct:[id number] Age/Sex: 78 / FADM Date: 10/01/24 Loc: MRI Attending Dr: Ml Sanchez M.D. Ordering Physician: Ml Sanchez M.D. Date of Service: 10/01/24 Procedure(s): MR lumbar spine wo con Accession Number(s): [id number] cc: ROC STEELE ; Ml Sanchez M.D. The [place] [address] Patient Name: USHA WALKER MRN: [id number] date: 1945 Sex: F Assigned Patient Location: MRI Current Patient Location: MRI Accession/Order Number: [id number] Exam Date: 10/01/2024 14:28 Report Date: 10/01/2024 [...] Bach M.D. 10/01/2024 2:34 PM Dictation Location: [place] [address] Electronically authenticated by: [id number] Y Date: 4:34 Dictated By: Sj Bach M.D. Signed By:10/01/24 1437 DD/ 1434 TD/TT: Machine Straw Hat Presser: us Generic External Data Provider [facility] Final Result * Colonoscopy (10/31/2012 12:00 PM EDT) Anatomical Region Laterality Modality Endoscopy 10/31/2012 12:0 0 PM EDT Narrative 10/31/2012 12:00 PM EDT PERFORMED AT [facility] LOCATION:[id number] DIVERTICULOSIS Procedure Note CONVERSION, GENERIC - 09/15/2022 PERFORMED AT [facility] LOCATION:[id number] DIVERTICULOSIS Roc Steele MD ENDOSCOPY PROCEDURE ORDERABLES Final Result from Last 3 Months or Most Recently Relevant to Health Maintenance Insurance [facility] MEDICARE Care Teams Agitator Operator Relationship Specialty Start Date End Date Roc Steele MD [address] [facility] [address] [place] [address] PCP - General Internal Medicine 09/28/22 Roc Steele MD [address] [facility] [address] [place] [address] PCP - ACO Reach 08/30/23 Luis Felipe Dugan DO [address] [place], [place] [address] Referring Physician Neurology 03/07/24 Gladis Laird LPN [address] [facility] [address] [place] [address] 07/19/24
--- OUTSIDE RECORDS SUMMARY | 2025-01-01 09:39 | XMS_ITS | Encounter Summary ---
Author Organization [facility] Address [address] [place] [address] Care Team Providers Care School Examiner Name Role Phone Roc Steele MD Primary Care Provider Roc Steele MD Unavailable [phone] Luis Felipe Dugan DO Unavailable [phone] Raya Holt RN Unavailable [phone] Gladis Laird LPN Unavailable Encounter Details Date Type Department Care Team (Late st Contact Info) Description 06/04/2024 Abstract [facility] [facility] [address] [facility] 110 [place] [address] Roc Steele MD [address] [facility] [address] [place] [address] Social History Tobacco Use Types Packs/Day Years [...] Recorded Patient Health Questionnaire-2 Score 0 07/06/2023 [facility] of Occupat ional Health - Occupational Stress [...] EDT Procedure Visit [facility] 112 [facility] [place] [place] [address] Alex Tam DPM 9403 [facility] 5 [place] [address] documented as of this encounter Visit Diagnoses Not on filedocumented in this encounter Additional Health Concerns Assessment Noted Time PHQ-9 Depression Total Score: 0 07/06/19 24 3:00 PM EST documented as of this encounter Care Teams School Examiner Relationship Specialty Start Date End Date Roc Steele MD [address] [place] [address] [place] [address] PCP - General Internal Medicine 09/28/22 Roc Steele MD [address] [facility] [address] [place] [address] PCP - ACO Reach 08/30/23 Luis Felipe Dugan DO [address] [place] [address] Referring Physician Neurology 03/07/24 Raya Holt, RN [address] [place] [address] Clinical Advocate Family Medicine 06/07/24 07/19/24 Gladis Laird LPN [address] [facility] 110 [place] [address] 07/19/24 documented as of this encounter
--- OUTSIDE RECORDS SUMMARY | 2025-01-01 09:39 | XMS_ITS | Encounter Summary ---
Author Organization [facility] Address [address] [place] [address] Care Team Providers Care Patent Solicitor Name Role Phone Roc Steele MD Primary Care Provider [phone] Roc Steele MD Unavailable [phone] RitchieBulljulianojean-claude JORDAN Unavailable [phone] Gladis Laird LPN Unavailable Encounter Details Date Type Department Care Team (Late st Contact Info) Description 08/19/2024 Abstract [facility] [place] [facility] [address] [facility] 110 [place] [address] Roc Steele MD 112 [facility] 110 [place] [address] Social History Tobacco Use Types Packs/Day Years [...] often do you attend chur ch or evangelical services? Never 11/25/2022 Do you [...] Recorded Patient Health Questionnaire-2 Score 0 08/19/2024 [facility] of Occupat ional Health - Occupational [...] ([facility] st Contact Info) Description 01/02/2025 2:40 PM EDT Procedure Visit [facility] 112 [facility] 120 [place] [address] Alex Tma DPM 3500 [facility] 5 [place] [address] documented as of this encounter Visit Diagnoses Not on filedocumented in this encounter Additional Health Concerns Assessment Noted Time PHQ-9 Depression Total Score: 0 07/06/19 24 3:00 PM EST documented as of this encounter Care Teams Patent Solicitor Relationship Specialty Start Date End Date Roc Steele MD [address] [facility] 110 [place], [place] [address] PCP - General Internal Medicine 09/28/22 Roc Steele MD [address] [facility] 110 [place] [address] PCP - ACO Reach 08/30/23 Luis Felipe Dugan DO [address] [place] [address] Referring Physician Neurology 03/07/24 Gladis Laird LPN [address] [facility] 110 [place] [address] 07/19/24 documented as of this encounter
--- OUTSIDE RECORDS SUMMARY | 2025-01-01 09:39 | XMS_ITS | Encounter Summary ---
Author Organization [facility] Address [address] [place] [address] Care Team Providers Care Turner Machine Operator Name Role Phone Roc Steele MD Primary Care Provider [phone] Roc Steele MD Unavailable [phone] Luis Felipe Dugan DO Unavailable [phone] Raya Holt RN Unavailable [phone] Gladis Laird LPN Unavailable Encounter Details Date Type Department Care Team (Late st Contact Info) Description 05/30/2024 Abstract [facility] [place] [facility] [address] [facility] 110 [place] [address] Roc Steele MD [address] [facility] [address] [place] [address] Social History Tobacco Use Types Packs/Day Years [...] Recorded Patient Health Questionnaire-2 Score 0 07/06/2023 [facility] of Occupat ional Health - Occupational Stress [...] Procedure Visit [facility] [address] [facility] [address] [place] [address] Alex Tam DPM 5062 [facility] 5 [place] [address] documented as of this encounter Visit Diagnoses Not on filedocumented in this encounter Additional Health Concerns Assessment Noted Time PHQ-9 Depression Total Score: 0 07/06/19 24 3:00 PM EST documented as of this encounter Care Teams Turner Machine Operator Relationship Specialty Start Date End Date Roc Steele MD [address] [place] [address] [place] [address] PCP - General Internal Medicine 09/28/22 Roc Steele MD [address] [facility] [address] [place] [address] PCP - ACO Reach 08/30/23 Luis Felipe Dugan DO [address] [place] [address] Referring Physician Neurology 03/07/24 Raya Holt, RN [address] [place] [address] Clinical Advocate Family [facility] 06/07/24 07/19/24 Gladis Laird LPN [address] [facility] 110 [place] [address] 07/19/24 documented as of this encounter
--- OUTSIDE RECORDS SUMMARY | 2025-01-01 09:39 | XMS_ITS | Encounter Summary ---
Author Organization [facility] Address [address] [place] [address] Care Team Providers Care Material Damage Adjuster Name Role Phone Roc Steele MD Primary Care Provider [phone] Roc Steele MD Unavailable [phone] RitchieBulljulianojean-claude JORDAN Unavailable [phone] Gladis Laird LPN Unavailable Encounter Details Date Type Department Care Team (Late st Contact Info) Description 09/18/2024 Abstract [facility] [place] [facility] [address] [facility] 110 [place] [address] Roc Steele MD 112 [facility] 110 [place] [address] Social History Tobacco Use Types Packs/Day Years [...] EDT Procedure Visit [facility] [address] [place] [place] [address] Alex Tam DPRen 3005 [facility] 5 [place] [address] documented as of this encounter Visit Diagnoses Not on filedocumented in this encounter Additional Health Concerns Assessment Noted Time PHQ-9 Depression Total Score: 0 07/06/19 24 3:00 PM EST documented as of this encounter Care Teams Material Damage Adjuster Relationship Specialty Start Date End Date Roc Steele MD 112 [facility] [place] [place], [place] [address] PCP - General Internal Medicine 09/28/22 Roc Steele MD [address] [place] [address] [place] [address] PCP - ACO Reach 08/30/23 Luis Felipe Dugan DO [address] [place] [address] Referring Physician Neurology 03/07/24 Gladis Laird LPN [address] [place] [address] [place] [address] 07/19/24 documented as of this encounter
--- OUTSIDE RECORDS SUMMARY | 2025-01-01 09:39 | XMS_ITS | Encounter Summary ---
Author Organization [facility] Address [address] [place] [address] Phone Care Team Providers Care Client Relationship Consultant Name Role Phone Roc Steele MD Primary Care Provider [phone] Encounter Details Date Type Department Care Team (Late st Contact Info) Description 07/03/2024 Scanned Document [facility] [address] [place] [id number] Scanning, Generic Provider Social History Tobacco Use [...] Description 04/28/2025 1:00 PM EST Ancillary Procedure [address] [place] [address] 05/16/2025 2:00 PM EST Office Visit [address] [place] [address] Amber Hawley MD [address] [facility] 130 [place] [address] documented as of this encounter Visit Diagnoses Not on filedocumented in this encounter Care Teams Client Relationship Consultant Relationship Specialty Start Date End Date Roc Steele MD 112 [facility] 110 [place] [address] PCP - General 10/04/22 documented as of this encounter
--- OUTSIDE RECORDS SUMMARY | 2025-01-01 09:39 | XMS_ITS | Encounter Summary ---
Author Organization [facility] Address [address] [place] [address] Care Team Providers Care Rail Switch Operator Name Role Phone Roc Steele MD Primary Care Provider [phone] Roc Steele MD Unavailable [phone] Luis Felipe Dugan DO Unavailable [phone] Raya Holt RN Unavailable [phone] Gladis Laird LPN Unavailable Encounter Details Date Type Department Care Team (Late st Contact Info) Description 10/03/2023 Abstract [facility] [place] [facility] [address] [facility] 110 [place] [address] Roc Steele MD [address] [facility] 110 [place] [address] Social History Tobacco Use Types Packs/Day Years [...] Health Questionnaire-2 Score 0 07/06/2023 [facility] of Occupat ional Health - [...] Upcoming Encounters Date Type Department Care Team ([facility] Contact Info) Description 01/02/2025 2:40 PM EDT Procedure Visit [facility] 112 [facility] 120 [place] [address] Alex Tam DPM 3006 [facility] 5 [place] [address] documented as of this encounter Visit Diagnoses Not on filedocumented in this encounter Additional Health Concerns Assessment Noted Time PHQ-9 Depression Total Score: 0 07/06/19 24 3:00 PM EST documented as of this encounter Care Teams Rail Switch Operator Relationship Specialty Start Date End Date Roc Steele MD 112 [facility] 110 [place] [address] PCP - General Internal Medicine 09/28/22 Roc Steele MD [address] [facility] 110 [place] [address] PCP - ACO Reach 08/30/23 Luis Felipe Dugan DO [address] [place] [address] Referring Physician Neurology 03/07/24 Raya Holt, CARMEN [address] [place], [place] [address] Clinical Advocate Family Medicine 06/07/24 07/19/24 Gladis Laird LPN [address] [facility] 110 [place] [address] 07/19/24 documented as of this encounter
--- OUTSIDE RECORDS SUMMARY | 2025-01-01 09:39 | XMS_ITS | Encounter Summary ---
Author Organization [facility] Address [address] [place] [address] Care Team Providers Care Pewter Caster Name Role Phone Roc Steele MD Primary Care Provider [phone] Roc Steele MD Unavailable [phone] RitchieBulljulianojean-claude JORDAN Unavailable [phone] Gladis Laird LPN Unavailable Encounter Details Date Type Department Care Team (Late st Contact Info) Description 10/01/2024 Abstract [facility] [place] [facility] [address] [facility] 110 [place] [address] Roc Steele MD 112 [facility] 110 [place] [address] Social History Tobacco Use Types Packs/Day Years [...] Recorded Patient Health Questionnaire-2 Score 0 08/19/2024 [facility] of Occupat ional Health [...] Upcoming Encounters Date Type Department Care Team ([facility] st Contact Info) Description 01/02/2025 2:40 PM EDT Procedure Visit [facility] [address] [place] [address] Alex Tam DPRen 3007 [facility] 5 [place] [address] documented as of this encounter Visit Diagnoses Not on filedocumented in this encounter Additional Health Concerns Assessment Noted Time PHQ-9 Depression Total Score: 0 07/06/19 24 3:00 PM EST documented as of this encounter Care Teams Pewter Caster Relationship Specialty Start Date End Date Roc Steele MD 112 [facility] [address] [place], [place] [address] PCP - General Internal Medicine 09/28/22 Roc Steele MD [address] [place] [address] PCP - ACO Reach 08/30/23 Luis Felipe Dugan DO [address] [place] [address] Referring Physician Neurology 03/07/24 Gladis Laird LPN [address] [place] [place] [address] 07/19/24 documented as of this encounter
--- NOTE | 2025-01-01 09:46 | ED.GENADUL1 ---
HPI HPI - General Adult General Chief complaint: Chest Pain Stated complaint: CHEST PAIN Time Seen by Provider: 01/01/25 09:16 Source: patient Mode of arrival: ambulance Limitations: no limitations History of Present Illness HPI narrative: Patient is a 79-year-old female presenting to the emergency department from [facility] for concerns of chest pain. Patient states that 3.5 hours ago she was lying in bed when she started experiencing chest pain. She states it felt like heaviness . It did not radiate into her arm, back, or jaw. It was not associated with exertion, shortness of breath, or nausea/diaphoresis. She states the pain lasted approximately 1 hour before resolving on its own. She thinks that her chest pain was hurting because her blood pressure has been high over the last 2 days. She has not been getting her antihypertensive medications while at the [facility] as she just recently was admitted there. She states that she had a recent ORIF of her left ankle from a fall last week. She states she is on subcutaneous Lovenox and aspirin every day to prevent blood clots. Currently, she is asymptomatic. She denies any current chest pain or shortness of breath. She denies any pain in her left lower extremity. No abdominal pain, nausea, or vomiting. She denies history of hemoptysis or prior DVT/PE. Related Data Home Medications ?Medication ?Instructions ?Recorded ?Confirmed simvastatin 10 mg tablet 10 mg PO DAILY 12/01/22 12/26/24 fexofenadine 180 mg tablet 180 mg PO DAILY 12/26/24 12/26/24 (Radha Allergy) gabapentin 300 mg capsule 300 mg PO BID 12/26/24 12/26/24 magnesium oxide 400 mg (241.3 mg 400 mg PO DAILY 12/26/24 12/26/24 magnesium) tablet metoprolol succinate 100 mg 100 mg PO DAILY 12/26/24 12/26/24 tablet,extended release 24 hr isosorbide mononitrate 30 mg 30 mg PO DAILY 12/28/24 12/29/24 tablet,extended release 24 hr Previous Rx's ?Medication ?Instructions ?Recorded acetaminophen 325 mg tablet 650 mg (2 x 325 mg) PO Q6H PRN 12/29/24 (Tylenol) Pain #0 tabs alprazolam 0.25 mg tablet 0.25 mg PO DAILY PRN anxiety #5 12/29/24 tabs cholecalciferol (vitamin D3) 50 50 mcg PO DAILY #30 tabs 12/29/24 mcg (2,000 unit) tablet (Vitamin D3) docusate sodium 100 mg capsule 100 mg PO BID PRN Constipation #0 12/29/24 caps enoxaparin 40 mg/0.4 mL 40 mg (0.4 mL) subcut DAILY 30 12/29/24 subcutaneous syringe (Lovenox) days #12 mL oxycodone 5 mg tablet 5 mg PO Q4H PRN Pain Scale 4-6 #12 12/29/24 tabs sennosides 8.6 mg-docusate sodium 1 tab-cap PO QD PRN Constipation 12/29/24 50 mg tablet (Senna Plus) #0 tabs tizanidine 4 mg tablet 2 mg (1/2 x 4 mg) PO Q8H PRN 12/29/24 Muscle spasm #0 tabs Allergies Allergy/AdvReac Type Severity Reaction Status Date / Time clarithromycin Allergy Severe Rash Verified 01/01/25 09:20 moxifloxacin (From Avelox) Allergy Severe tongue Verified 01/01/25 09:20 swelling Sulfa (Sulfonamide Allergy Unknown Unknown Verified 01/01/25 09:20 Antibiotics) ciprofloxacin (From Cipro) Allergy Rash Verified 01/01/25 09:20 Opioid HPI Opioid Management Most Recent Opioid Data: Last Pain Scale 5 Today, 09:20 Last Pain Intensity 2 12/27/24, 18:01 Last Pain Assessment 12/26/24, 17:09 Last MAR Pain Assessment 12/26/24, 12:43 Last ORT Total Score 0 12/26/24, 17:09 Last ORT Risk Category Low Risk 12/26/24, 17:09 Review of Systems ROS Status of ROS 10 or more systems reviewed and unremarkable except as noted in history and below [facility] Medical History Benign essential hypertension ?I10 - Essential (primary) hypertension (ICD-10) Chronic heart failure with preserved ejection fraction (HFpEF) ?I50.32 - Chronic diastolic (congestive) heart failure (ICD-10) Generalized weakness ?R53.1 - Weakness (ICD-10) Fall ?W19.XXXA - Unspecified fall, initial encounter (ICD-10) Pulmonary edema ?J81.1 - Chronic pulmonary edema (ICD-10) Closed head injury ?S09.90XA - Unspecified injury of head, initial encounter (ICD-10) Contusion of right knee ?S80.01XA - Contusion of right knee, initial encounter (ICD-10) Abrasion of elbow, right ?S50.311A - Abrasion of right elbow, initial encounter (ICD-10) Pneumonia ?J18.9 - Pneumonia, unspecified organism (ICD-10) Acute CHF (congestive heart failure) ?I50.9 - Heart failure, unspecified (ICD-10) Acute kidney injury ?N17.9 - Acute kidney failure, unspecified (ICD-10) Community acquired pneumonia ?J18.9 - Pneumonia, unspecified organism (ICD-10) GERD without esophagitis ?K21.9 - Gastro-esophageal reflux disease without esophagitis (ICD-10) Lump of left breast ?N63.20 - Unspecified lump in the left breast, unspecified quadrant (ICD-10) High cholesterol ?E78.00 - Pure hypercholesterolemia, unspecified (ICD-10) High blood pressure ?I10 - Essential (primary) hypertension (ICD-10) Anxiety ?F41.9 - Anxiety disorder, unspecified (ICD-10) Macular degeneration ?H35.30 - Unspecified macular degeneration (ICD-10) Degenerative disc disease Fibromyalgia ?M79.7 - Fibromyalgia (ICD-10) Right shoulder pain ?M25.511 - Pain in right shoulder (ICD-10) Sleep apnea ?G47.30 - Sleep apnea, unspecified (ICD-10) Surgical History Carpal tunnel syndrome, left ?G56.02 - Carpal tunnel syndrome, left upper limb (ICD-10) History of arthroplasty of right ankle ?Z96.661 - Presence of right artificial ankle joint (ICD-10) History of bilateral knee replacement ?Z96.653 - Presence of artificial knee joint, bilateral (ICD-10) History of right hip replacement ?Z96.641 - Presence of right artificial hip joint (ICD-10) Family History Mother Family history of CHF (congestive heart failure) Sister Family history of CHF (congestive heart failure) Son Family history of cancer Family history of diabetes mellitus Family history of hypertension Social History Within the past year, how often did you have a drink containing alcohol: never Score interpretation: A score less than 3 is consistent with normal alcohol consumption. Smoking status: Never smoker Non-prescribed substance use: denies use Previous occupational history: retired Highest level of school completed/degree received: GED or equivalent Are you now , , , , never or living with a partner: In a typical week, how many times do you talk on the telephone with family, friends, or neighbors: 3 or more times per week How often do you get together with friends or relatives: 3 or more times per week How often do you attend sabianist or jehovah's witness services: never Little interest or pleasure in doing things: not at all Feeling down, depressed, or hopeless: not at all Feel stressed/tense/nervous/anxious/difficulty sleeping: not at all Do you think of yourself as: straight/heterosexual Gender Identity: female Exam Narrative Exam Narrative: CONSTITUTIONAL: Well-appearing, answering questions and following commands appropriately SKIN: Was warm and dry. EYES: No conjunctival pallor EARS, NOSE, THROAT: Moist mucosa. No JVD. RESPIRATORY: Clear to auscultation bilaterally, no wheezes, crackles, or stridor, no use of accessory muscles CARDIOVASCULAR: Normal rate and regular rhythm. There is no S3, S4, murmur, rub. Good cap refill in the left toes. GASTROINTESTINAL: Abdomen was soft, non-tender, and non-distended. There is no guarding or rebound tenderness MUSCULOSKELETAL: The left lower extremity is in a post-operative splint. She wiggles all her toes well. They feel warm and well-perfused. No RLE edema or calf tenderness. NEUROLOGIC: Patient is awake and alert. Facies were symmetrical. Constitutional Vital Signs, click to edit/add: Last Vital Signs Temp 98.7 F 01/01/25 09:20 Pulse 80 01/01/25 11:58 Resp 20 01/01/25 11:50 BP 158/108 H 01/01/25 11:58 Pulse Ox 96 01/01/25 11:50 O2 Del Method Room Air 01/01/25 09:20 Course Vital Signs Vital signs: Vital Signs Temperature 98.7 F 01/01/25 09:20 Pulse Rate 79 01/01/25 09:20 Respiratory Rate 20 01/01/25 09:20 Blood Pressure 172/94 H 01/01/25 09:20 Pulse Oximetry 96 01/01/25 09:20 Oxygen Delivery Method Room Air 01/01/25 09:20 Temperature 98.7 F 01/01/25 09:20 Pulse Rate 80 01/01/25 11:58 Respiratory Rate 20 01/01/25 11:50 Blood Pressure 158/108 H 01/01/25 11:58 Pulse Oximetry 96 01/01/25 11:50 Oxygen Delivery Method Room Air 01/01/25 09:20 Medical Decision Making MDM Narrative Medical decision making narrative: Patient is a 79-year-old female, approximately 1 week postop from a left ORIF from a bimalleolar ankle fracture, presenting to the emergency department from the [facility] for concerns of chest pain that began 3 hours ago and is now currently resolved. Her vital signs on arrival are significant for hypertension, though she has not taken her antihypertensives in the last 2 days. She is otherwise afebrile and hemodynamically stable. She is saturating 96% on room air. Examination as noted above. Differential diagnose includes ACS, arrhythmia, symptomatic anemia, musculoskeletal chest pain, anxiety, pneumothorax, or other associated electrolyte/metabolic derangement. The patient is a postop patient with limited mobility, therefore I did consider pulmonary embolism. However, she is on daily subcutaneous Lovenox and aspirin. Additionally, she is currently asymptomatic without any current chest pain, shortness of breath, tachycardia, or hypoxia - making PE of lower likelihood. IV was established and cardiac workup was obtained. She was given her home dose of metoprolol 50mg. 12 Lead EKG: Normal sinus rhythm at a rate of 75. Normal axis. There are T wave inversions in the inferior leads and lead III that are unchanged. No ST segment elevations. QRS, TX, and QTc interval within normal limits. Unchanged compared to prior EKG from 12/27/2024. Final impression: normal sinus rhythm without evidence of acute myocardial ischemia. Laboratory studies were unremarkable. No significant electrolyte or metabolic derangement. No evidence of acute kidney injury. No anemia, leukocytosis, or thrombocytopenia. No transaminitis or hyperbilirubinemia. test negative. Troponin nonelevated. BNP was elevated to 7869. Chest x-ray independently reviewed/interpreted by myself demonstrated no acute cardiopulmonary process. No evidence of pulmonary edema. On reevaluation, patient states she feels well and is asymptomatic. She feels comfortable being discharged back to her LTAC. Patient does have a history of heart failure. Though her BNP is elevated, she has no evidence of decompensated heart failure. She is hemodynamic stable, no significant peripheral edema, and no pulmonary edema on chest x-ray. She has no shortness of breath, orthopnea, and is saturating 96% on room air. I do not believe she is having an acute exacerbation of congestive heart failure. I do believe the patient is stable for discharge at this time. They were instructed to follow up with her PCP and trade marker as previously scheduled. Return precautions were given including any new or worsening symptoms. Patient understands and agrees to the plan. FINAL IMPRESSION: #Acute atypical chest pain #History of heart failure with preserved ejection fraction #History of recent left ankle ORIF DISPOSITION: Discharged to [facility] CONDITION: Good Medical Records Medical records reviewed: Yes I reviewed the patient's medical records Lab Data Lab results reviewed: Yes I reviewed the patient's lab results Labs: Lab Results 01/01/25 Range/Units 09:53 WBC 8.2 (4.0-11.0) 10^3/uL RBC 4.13 L (4.20-5.40) 10^6/uL Hgb 13.4 (12.0-16.0) g/dL Hct 40.1 (36.0-48.0) % MCV 97.1 (81.0-99.0) fL MCH 32.4 (26.7-34.0) pg MCHC 33.4 (29.9-35.2) g/dL RDW 12.8 (11.0-15.0) % Plt Count 239 (150-450) 10^3/uL MPV 10.0 (9.5-13.5) fL Sodium 138 (136-145) mmol/L Potassium 4.1 (3.5-5.1) mmol/L Chloride 102 (98-107) mmol/L Carbon Dioxide 31.5 (21.0-32.0) mmol/L Anion Gap 8.6 BUN 11.0 (7.0-18.0) mg/dL Creatinine 0.75 (0.55-1.02) mg/dL Est GFR ( Amer) >60 (>=60 mL/min/1.73m^2) Est GFR (Non-Af Amer) >60 (>=60 mL/min/1.73m^2) BUN/Creatinine Ratio 14.7 Glucose 125 H (74-106) mg/dL Calcium 9.3 (8.5-10.1) mg/dL Troponin I High Sens 21.2 (4.0-51.3) pg/mL NT-Pro-B Natriuret Pep 7869.0 H* (<=1800.0) pg/mL Imaging Data Chest x-ray: Attestation: I personally reviewed and interpreted this imaging study as follows: Radiologist's impression: ITS Impressions Chest X-Ray 01/01/25 09:35 IMPRESSION: CARDIOMEGALY AND CHRONIC CHANGES. NO ACUTE FINDINGS. Impression dictated by: Sushila Zeng M.D. 01/01/2025 10:24 AM Dictation Location: [facility] Electronically authenticated by: [id number] Y Date: 01/01/2025 10:24 ECG Data Attestation: I personally reviewed and interpreted this ECG as follows: Discharge Plan Discharge Chief Complaint: Chest Pain Clinical Impression: Chest pain High blood pressure Qualifiers: Hypertension type: primary hypertension Qualified Code(s): I10 - Essential (primary) hypertension Patient Disposition: Home, Self-Care Time of Disposition Decision: 10:55 Condition: Good Mode of Transportation: Private Vehicle Prescriptions / Home Meds: No Action simvastatin 10 mg tablet 10 mg PO DAILY metoprolol succinate 100 mg tablet extended release 24 hr 100 mg PO DAILY magnesium oxide 400 mg (241.3 mg magnesium) tablet 400 mg PO DAILY fexofenadine [Radha Allergy] 180 mg tablet 180 mg PO DAILY gabapentin 300 mg capsule 300 mg PO BID isosorbide mononitrate 30 mg tablet extended release 24 hr 30 mg PO DAILY acetaminophen [Tylenol] 325 mg Tablet 650 mg PO Q6H PRN (Reason: Pain) Qty: 0 0RF tizanidine 4 mg Tablet 2 mg PO Q8H PRN (Reason: Muscle spasm) Qty: 0 0RF sennosides-docusate sodium [Senna Plus] 8.6-50 mg Tablet 1 tab-cap PO QD PRN (Reason: Constipation) Qty: 0 0RF docusate sodium 100 mg Capsule 100 mg PO BID PRN (Reason: Constipation) Qty: 0 0RF enoxaparin [Lovenox] 40 mg/0.4 mL syringe 40 mg subcut DAILY 30 Days Qty: 12 0RF alprazolam 0.25 mg tablet 0.25 mg PO DAILY PRN (Reason: anxiety) Qty: 5 0RF oxycodone 5 mg Tablet 5 mg PO Q4H PRN (Reason: Pain Scale 4-6) Qty: 12 0RF cholecalciferol (vitamin D3) [Vitamin D3] 50 mcg (2,000 unit) tablet 50 mcg PO DAILY Qty: 30 0RF Print Language: Kyrgyz Instructions: Chest Pain (ED), Chronic Hypertension (DC) Referrals: REJI FORRESTER [Primary Care Provider, Internal Medicine] - 1 week Discharge Date/Time: 01/01/25 12:44
[2025-01-01 09:59] LABS: Hematocrit 40.1 % (36.0-48.0); Hemoglobin 13.4 g/dL (12.0-16.0); Mean Corpuscular HGB Conc 33.4 g/dL (29.9-35.2); Mean Corpuscular Hemoglobin 32.4 pg (26.7-34.0); Mean Corpuscular Volume 97.1 fL (81.0-99.0); Platelet Count 239 10^3/uL (150-450); Red Blood Count 4.13 10^6/uL (4.20-5.40); White Blood Count 8.2 10^3/uL (4.0-11.0)
--- NOTE | 2025-01-01 10:00 | ECG_ITS ---
[facility] Test Date: 2025-01-01 Pat Name: LUMA RIBEIRO Department: Room: - Gender: Female [place] Guide: : 1945 Requested By: [id number] Order Number: [id number] Reading MD: SCOTTY IYER Measurements Intervals [place] Rate: 75 P: 32 CT: 198 QRS: -22 QRSD: 118 T: -30 QT: 406 QTc: 434 Interpretive Statements 1100 Sinus rhythm 2320 Nonspecific intraventricular conduction delay [address] depression 4164 Twave abnormality, possible anterior ischemia 7202 Moderate left axis deviation 9150 abnormal ECG Compared to ECG 12/27/2024 05:17:35 ST (T wave) deviation now present Possible ischemia now present Left ventricular hypertrophy no longer present Electronically Signed On 01-02-2025 16:00:50 EDT by SCOTTY IYER
[2025-01-01] MEDS: METOPROLOL SUCCINATE 50 MG TAB.ER.24H PO (10:16)
[2025-01-01 10:42] LABS: Anion Gap 8.6; Blood Urea Nitrogen 11.0 mg/dL (7.0-18.0); Calcium 9.3 mg/dL (8.5-10.1); Carbon Dioxide 31.5 mmol/L (21.0-32.0); Chloride 102 mmol/L (98-107); Estimated GFR (African America >60 (>=60 mL/min/1.73m^2); Estimated GFR (Non-African Ame >60 (>=60 mL/min/1.73m^2); Glucose 125 mg/dL (74-106); Potassium 4.1 mmol/L (3.5-5.1); Sodium 138 mmol/L (136-145)
[2025-01-01 10:45] LABS: NT Pro B Type Natriuretic Pept 7869.0 pg/mL (<=1800.0)
--- OUTSIDE RECORDS SUMMARY | 2025-01-01 10:50 | XMS_ITS | CCD ---
Author Organization [facility] Care Team Providers Care Tipple Engineer Name Role Phone PelonTrinaew Unavailable Unavailable Unavailable [...] Briscoe Attending U Roc Wellington MD Unavailable [phone] Roc Steele MD Primary Care Provider Roc Steele MD Unavailable [phone] Ritchie DO, Christopher Unavailable Mala Sapp Attending UnavailMala Kenney Admitting UnavailRoc Grant Primary Care Unavailable Yanet MORALES, Raya Unavailable Roc Steele MD Primary Care Provider Laird SENIOR MECHANICAL TECHNICIAN, Gladis Unavailable Unavailable Ritchie DO, Christopher Unavailable Ritchie DO, Christopher Unavailable Laird SENIOR MECHANICAL TECHNICIAN, Gladis Unavailable KAMILA PRIDE Attending Unavailable ALEX ALFREDO Attending Unavailable KAMILA PRIDE Attending Unavailable KAMILA PRIDE Attending Unavailable KAMILA PRIDE Referring Unavailable BIGG, KAMILA M Attending Unavailable BIGG, KAMILA M Referring Unavailable BIGG, KAMILA M Attending Unavailable ALEX ALFREDO A Attending Unavailable MARIKA STEELEEL B Attending Unavailable BROWN, ALEX A Attending Unavailable BIGG, KAMILA M Attending Unavailable BIGG, KMAILA M Attending Unavailable BROWN, ALEX A Attending [...] Ciprofloxacin; Translations: [ciprofloxacin] Drug Allergy [address] [facility] (20 sources) Clarithromycin; Translations: [clarithromycin] Drug Allergy 3 Unknown [facility] Repository (4 sources) moxifloxacin; Translations: [Avelox] Drug Allergy 3 Anaphylaxis [facility] Repository (20 sources) moxifloxacin; Translations: [moxifloxacin] Drug Allergy 3 Anaphylaxis, Angioedema -[facility] Work Phone: (1 source) Ciprofloxacin Drug Allergy 3 [facility] Repository (1 source) Sulfonamides (Antibiotic) Drug allergy (disorder) 3 [facility] Repository (20 sources) Sulfanilamide Allergy to substance [address] [facility] (8 sources) Sulfonamides (Antibiotic); Translations: [SULFA (SULFONAMIDE ANTIBIOTICS)] Propensity to adverse reactions 5 Unknown [facility] Work Phone: Medications Current Medications Medication Drug Class(es) Dates Sig (Normalized) Sig (Original) acetaminophen 325 mg / HYDROcodone bitartrate 5 mg oral tablet (20 sources) Opioid Agonist Start: 02-29-2024 End: 11-17-2024 take 1 tablet by mouth every four hours for pain HYDROcodone-acetam inophen ([place]) 5-325 MG tablet Indications: Lumbosacral spondylosis without myelopathy Take 1 tablet by mouth every 4 (four) hours if needed for moderate pain or severe pain 180 tablet 10/18/2024 11/17/2024 Active [id number] 200 actuat albuterol 0.09 mg/actuat metered dose [...] day at the same time. 0 Active sqxtewxvivwa-Sr-vrdf-mineral s tablet (1 source) take 1 tablet by mouth once daily zadwomqtcvar-Cs-tjoy-minerals tablet Take 1 tablet by mouth once [...] 08-01-2024 Chronic Other aftercare (1 source) Other residential (current) drug therapy; Translations: [OTH PENITENTIARY CURRENT DRUG THERAPY] Onset: 3 Episodic Other [...] [facility] Facility [place] [address] Magnetic Resonance Report Signed Patient: LUMA RIBEIRO MR#: [id number] : 1945 Acct:[id number] Age/Sex: 78 / F ADM Date: 10/01/24 Loc: MRI Attending Dr: Daron Sanchez M.D. Ordering Physician: Daron Sanchez M.D. Date of Service: 10/01/24 Procedure(s): MR lumbar spine wo con Accession Number(s): [id number] cc: ROC STEELE ; Daron Sanchez M.D. [facility] [place] [address] Patient Name: LUMA RIBEIRO MRN: [id number] date: 1945 Sex: F Assigned Patient Location: MRI Current Patient Location: MRI Accession/Order Number: [id number] Exam Date: 10/01/2024 14:28 Report Date: 10/01/2024 [...] Bach M.D. 10/01/2024 2:34 PM Dictation Location: [place] [address] Electronically authenticated by: [id number] Y Date: 10/01/2024 14:34 Dictated By: Srinivasa Bach M.D. Signed By: 10/01/24 1437 DD/ 1434 TD/TT: Life Insurance Actuary: [facility] Radiology, Radiologi MD noemy - 10/01/2024 [place] [address] Magnetic Resonance Report Signed Patient: LUMA RIBEIRO MR#: [id number] : 1945 Acct:[id number] Age/Sex: 78 / F ADM Date: 10/01/24 Loc: MRI Attending Dr: Daron Sanchez M.D. Ordering Physician: Daron Sanchez M.D. Date of Service: 10/01/24 Procedure(s): MR lumbar spine wo con Accession Number(s): [id number] cc: ROC STEELE ; Daron Sanchez M.D. [facility] [place] [address] Patient Name: LUMA RIBEIRO MRN: [facility]:[id number] date: 1945 Sex: F Assigned Patient Location: MRI Current Patient Location: MRI Accession/Order Number: [id number] Exam Date: 10/01/2024 14:28 Report Date: 10/01/2024 [...] Bach M.D. 10/01/2024 2:34 PM Dictation Location: [place] [address] Electronically authenticated by: [id number] Y Date: 10/01/2024 14:34 Dictated By: Srinivasa Bach M.D. Signed By: 10/01/24 1437 DD/ 1434 TD/TT: Life Insurance Actuary: [facility] Radiology Study observation (narrative) [facility] MR LUMBAR SPINE WO Jennifer crawford By: Radiologist Radiology on 10-01-2024 [facility] [employer] Work Phone: NUCLEAR STRESS TESTon 2024 NUCLEAR STRESS TEST Interpreted By: David Walls, and Jett Inman STUDY: MYOCARDIAL PERFUSION STRESS TEST WITH LEXISCAN Performing facility: [facility], [address] [place] [address], [address], [address] Provider: Amber Hawley MD, [facility] PCP: Dr. Madelyn Steele Supervising provider: David Castle MD, [facility] INDICATION: Signs/Symptoms:abn ekg, cp, dizziness, m hld. ,R42 Dizziness and giddiness,R07.89 Other chest pain,R00.2 Palpitations,E78.2 Mixed hyperlipidemia HISTORY: Gender: F; Age: 78 y/o ; Height: HT 162.6 cm cm; Weight: WT 122.018 kg kg. Abnormal EKG; High Cholesterol; HTN; Palpitations; Chest Pain; Denies smoking. COMPARISON: No comparison. ACCESSION NUMBER(S): [id number] ORDERING CLINICIAN: AMBER HAWLEY TECHNIQUE: TWO DAY [...] David Castle 09/19/2024 3:00 PM Dictation workstation: [id number] [facility] TRANSTHORACIC ECHO (TTE) COM PLETEon 09-18-2024 TRANSTHORACIC ECHO (TTE) COMPLETE [address], [address] [place] [address] TRANSTHORACIC ECHOCARDIOGRAM REPORT Patient Name: LUMA Deal Physician: [id number] David Castle MD, [facility] Study Date: 09/18/2024 Ordering Provider: [id number] AMBER HAWLEY MRN/PID: [id number] Fellow: Nurse: Date of /Age: 7 1945 Thread Drawer: Viry ely RDCS, RVT Gender Assigned at F Additional Staff: : Height: 162.56 cm Admit Date: Weight: 122.02 kg Admission Status: Outpatient BSA / BMI: 2.22 m2 / 46.17 Department Location: [facility]/m2 [place] Blood Pressure: 124 /86 mmHg Study Type: TRANSTHORACIC ECHO (TTE) COMPLETE Diagnosis/ICD: Supraventricular tachycardia-I47.1; Abnormal electrocardiogram [ECG] [EKG]-R94.31; Palpitations-R00.2 Indication: Edema, HTN, Hyperlipidemia, Carotid Stenosis, CARO, CKD-Stage III, Morbid Obesity CPT Codes: Echo Complete w Full Doppler-24727 Study Detail: The following Echo studies were [...] 338.04 c (more content not included)... Normal [facility] US Heart TransthoracicOrdere d By: David Castle on 09-18-2024 Aortic Valve Area by Continuity of Peak Velocity 2.65 cm2 [facility] Work Phone: 00 Aortic Valve Area by Continuity of VTI 1.93 cm2 [facility] Work Phone: 00 AV mn grad 7 mmHg [facility] Work Phone: AV pk grad 13 mmHg [facility] Work Phone: AV pk malinda 1.81 m/s [facility] Work Phone: [place] vol index A/L 44.1 ml/m2 [facility] Work Phone: 00 LV A4C EF 42.7 [facility] Work Phone: 00 LV Biplane EF 36 % [facility] Work Phone: LV EF 63 % [facility] Work Phone: LVIDd 4.66 cm [facility] Work Phone: [phone] LVOT diam 2.27 cm [facility] Work Phone: MV avg E/e' ratio 26.81 [facility] Work Phone: MV E/A ratio 0.79 [facility] Work Phone: RV free wall pk S' 15.98 cm/s [facility] Work Phone: [facility] Work Phone: US Heart Transthoracicon [facility] [address] [place] [address], [address], [place] [address] TRANSTHORACIC ECHOCARDIOGRAM REPORT Patient Name: LUMA Deal Physician: [id number] David Castle MD, [facility] Study Date: 09/18/2024 Ordering Provider: [id number] AMBER HAWLEY MRN/PID: [id number] Fellow: Nurse: Date of /Age: 7 1945 Thread Drawer: Viry ely RDCS, RVT Gender Assigned at F Additional Staff: : Height: 162.56 cm Admit Date: Weight: 122.02 kg Admission Status: Outpatient BSA / BMI: 2.22 m2 / 46.17 Department Location: [facility] Heart kg/m2 [place] Blood Pressure: 124 /86 mmHg Study Type: TRANSTHORACIC ECHO (TTE) COMPLETE Diagnosis/ICD: Supraventricular tachycardia-I47.1; Abnormal electrocardiogram [ECG] [EKG]-R94.31; Palpitations-R00.2 Indication: Edema, HTN, Hyperlipidemia, Carotid Stenosis, CARO, CKD-Stage III, Morbid Obesity CPT Codes: Echo Complete w Full Doppler-93496 Study Detail: The following Echo studies were [...] included)... David Mortensen M D - 09/18/[address], Suite [facility], [place] [address] TRANSTHORACIC ECHOCARDIOGRAM REPORT Patient Name: LUMA Deal Physician: [id number] David Castle MD, [facility] Study Date: 09/18/2024 Ordering Provider: [id number] AMBER HAWLEY MRN/PID: [id number] Fellow: Nurse: Date of /Age: 7 1945 Thread Drawer: Viry ely RDCS, RVT Gender Assigned at F Additional Staff: : Height: 162.56 cm Admit Date: Weight: 122.02 kg Admission Status: Outpatient BSA / BMI: 2.22 m2 / 46.17 Department Location: [facility]/[address] Blood Pressure: 124 /86 mmHg Study Type: TRANSTHORACIC ECHO (TTE) COMPLETE Diagnosis/ICD: Supraventricular tachycardia-I47.1; Abnormal electrocardiogram [ECG] [EKG]-R94.31; Palpitations-R00.2 Indication: Edema, HTN, Hyperlipidemia, Carotid Stenosis, CARO, CKD-Stage III, Morbid Obesity CPT Codes: Echo Complete w Full Doppler-00448 Study Detail: The following Echo studies were [...] Index: 0.48 AORTI (more content not included)... [facility] Work Phone: LIPID PANEL, STANDARD 06-30 Cholesterol [Mass/Vol] 153 mg/dL Normal <200 [facility] Comment on above: Order Comment: COLLE CTION KIT GIVEN TO PATIENT. PATIENT ADVISED TO RETURN. Performed By: #### 7 600 #### [facility] [address], [address] [place] [address] Chemical Technician: Bryce Larsen MD Cholesterol in HDL [Mass/Vol] 49 mg/dL Low > OR = 50 [facility] Comment on above: Order Comment: COLLE CTION KIT GIVEN TO PATIENT. PATIENT ADVISED TO RETURN. Performed By: #### 7 600 #### [facility] [address], [address] [place] [address] Chemical Technician: Bryce Larsen MD Cholesterol in LDL [Mass/Vol] [...] LDL-C. Mike JURADO et al. MARGO. 2013;310(19): 0252-3025 (http://education.WaterplayUSA.CyberX/faq/VDO328) Performed By: #### 7 600 #### [facility] [address], [address] [place] [address] Chemical Technician: Bryce Larsen MD Cholesterol.total/Cho lesterol in HDL [Mass ratio] 3.1 {ratio} Normal <5.0 [facility] Comment on above: Order Comment: COLLE CTION KIT GIVEN TO PATIENT. PATIENT ADVISED TO RETURN. Performed By: #### 7 600 #### [facility] [address], [address] [place] [address] Chemical Technician: Bryce Larsen MD NON HDL CHOLESTEROL 104 [...] By: #### 7 600 #### [facility] [address], [address] [place] [address] Chemical Technician: Bryce Larsen MD Triglyceride [Mass/Vol] 121 mg/dL Normal <150 [facility] Comment on above: Order Comment: COLLE CTION KIT GIVEN TO PATIENT. PATIENT ADVISED TO RETURN. Performed By: #### 7 600 #### [facility] [address], [address] [place] [address] Chemical Technician: Bryce Larsen MD DEXA BONE DENSITYon 07-27-19 [...] Available MM TOMOSYNTHESIS SCREENING B Ion 07-18-[address] [address] Mammography Report Signed Patient: LUMA RIBEIRO MR#: [id number] : 1945 Acct:[id number] Age/Sex: 78 / F ADM Date: 07/17/24 Loc: MAMMO Attending Dr: ROC STEELE Ordering Physician: ROC STEELE Results: Date of Service: 07/17/24 Follow Up: Procedure(s): MM tomosynthesis screening BI Accession Number(s): [id number] cc: USAMAMARIKAROC Patient Name: LUMA RIBEIRO MR#: [id number] : 1945 Exam Date: 07/17/2024 Ordering Doctor: [...] breast cancer at age 61. LOCATION: [facility] BREAST COMPOSITION: There are scattered areas [...] Signed By: 07/18/24 1620 DD/ 1619 TD/TT: Life Insurance Actuary: [facility] RadiologyJodieogmekhi salguero MD - 07/18/2024 [facility] [place] [id number] Mammography Report Signed Patient: LUMA RIBEIRO MR#: [id number] : 1945 Acct:[id number] Age/Sex: 78 / F ADM Date: 07/17/24 Loc: MAMMO Attending Dr: ROC STEELE Ordering Physician: ROC STEELE Results: Date of Service: 07/17/24 Follow Up: Procedure(s): MM tomosynthesis screening BI Accession Number(s): [id number] cc: ROC STEELE Patient Name: LUMA RIBEIRO MR#: [id number] : 1945 Exam Date: 07/17/2024 Ordering Doctor: [...] breast cancer at age 61. LOCATION: [facility] BREAST COMPOSITION: There are scattered areas [...] Signed By: 07/18/24 1620 DD/ 1619 TD/TT: Life Insurance Actuary: [employer] Radiology Study observation (narrative) [facility] [employer] MM TOMOSYNTHESIS SCREENING B IOrdered By: Radiologist Radiology on 07-18-2024 [employer] Work Phone: ECG 12 Leadon 07-15-2024 [facility] Work Phone: [facility] Work Phone: Laboratory - Hematology and Cell countson 07-11-2024 HbA1c (Bld) [Mass fraction] 6.1 % [facility] No Panel Informationon 07-[address] [facility] XR HIP 2 OR 3 VW RIGHTon [...] #### 1 0231, 622 #### [facility] [place] [address] Chemical Technician: Bryce Larsen MD Albumin/Globulin [Mass ratio] 1.7 {ratio} Normal 1.0-2.5 [facility] Comment on above: Performed By: #### 1 230, 622 #### [facility] [place] [address] Chemical Technician: Bryce Larsen MD ALP [Catalytic activity/Vol] 99 U/L Normal 37-153 [facility] Comment on above: Performed By: #### 1 230, 622 #### [facility] [place] [address] Chemical Technician: Bryce Larsen MD ALT [Catalytic activity/Vol] 8 U/L Normal 6-29 [facility] Comment on above: Performed By: #### 1 230, 622 #### [facility] [place] [address] Chemical Technician: Bryce Larsen MD AST [Catalytic activity/Vol] 19 U/L Normal 10-35 [facility] Comment on above: Performed By: #### 1 230, 622 #### [facility] of [place] [address] Chemical Technician: Bryce Larsen MD Bilirubin [Mass/Vol] 0.6 mg/dL Normal 0.2-1.2 [facility] Comment on above: Performed By: #### 1 230, 622 #### [facility] [place] [address] Chemical Technician: Bryce Larsen MD Calcium [Mass/Vol] 8.9 mg/dL Normal 8.6-10.4 [facility] Comment on above: Performed By: #### 1 230, 622 #### [facility] [place] [address] Chemical Technician: Bryce Larsen MD Chloride [Moles/Vol] 104 mmol/L Normal 98-110 [facility] Comment on above: Performed By: #### 1 230, 622 #### [facility] [place] [address] Chemical Technician: Bryce Larsen MD CO2 [Moles/Vol] 27 mmol/L Normal 20-32 [facility] Comment on above: Performed By: #### 1 230, 622 #### [facility] [place] [address] Chemical Technician: Bryce Larsen MD Creatinine [Mass/Vol] 1.11 mg/dL High 0.60-1.[address] [facility] Comment on above: Performed By: #### 1 230, 622 #### [facility] [place] [address] Chemical Technician: Bryce Larsen MD GFR/1.73 sq M.predicted among non-blacks MDRD (S/P/Bld) [Vol rate/Area] 51 mL/min/{1.73_m2} Low > OR = 60 [facility] Comment on above: Performed By: #### 1 230, 622 #### [facility] of [place] [id number] Chemical Technician: Bryce Larsen MD Globulin (S) [Mass/Vol] 2.3 g/dL Normal 1.9-3.7 [facility] Comment on above: Performed By: #### 1 230, 622 #### [facility] [place] [address] Chemical Technician: Bryce Larsen MD Glucose [Mass/Vol] 145 mg/dL High 65-139 [facility] Comment on above: Result Comment: Non-fasting reference interval For someone without known diabetes, a glucose value >125 mg/dL indicates that they may have diabetes and this should be confirmed with a follow-up test. Performed By: #### 1 230, 622 #### [facility] [place] [address] Chemical Technician: Bryce Larsen MD Potassium [Moles/Vol] 4.2 mmol/L Normal 3.5-5.[address] [facility] [address] [facility] Comment on above: Performed By: #### 1 230, 622 #### [facility] [place] [address] Chemical Technician: Bryce Larsen MD Protein [Mass/Vol] 6.3 g/dL Normal 6.1-8.1 [facility] Comment on above: Performed By: #### 1 230, 622 #### [facility] [place] [address] Chemical Technician: Bryce Larsen MD Sodium [Moles/Vol] 138 mmol/L Normal 135-146 [facility] Comment on above: Performed By: #### 1 230, 622 #### [facility] [place] [address] Chemical Technician: Bryce Larsen MD Urea nitrogen [Mass/Vol] 19 mg/dL Normal 7-25 [facility] Comment on above: Performed By: #### 1 230, 622 #### [facility] [place] [address] Chemical Technician: Bryce Larsen MD Urea nitrogen/Creatinine [Mass ratio] 17 mg/mg Normal - [facility] Comment on above: Performed By: #### 1 0231, 622 #### [facility] [place] [address] Chemical Technician: Bryce Larsen MD MAGNESIUMon 07-04-2024 Magnesium [Mass/Vol] 2.0 mg/dL Normal 1.5-2.5 [facility] Comment on above: Order Comment: FASTI NG:NO FASTING: NO Performed By: #### 1 0231, 622 #### [facility] [address], [address] [place] [address] Chemical Technician: Bryce Larsen MD B TYPE NATRIURETIC PEPTIDE ( BNP)on 06-12-2024 Natriuretic peptide B (Bld) [Mass/Vol] 108 pg/mL High <100 [facility] Comment on above: Result Comment: BNP levels increase with age in the general population with the highest values seen in individuals greater than 75 years of age. Reference: J. Am. Vladislav. Cardiol. 2002; 40:976-982. Performed By: #### 3 7386 #### [facility] [place] [address] Chemical Technician: Bryce Larsen MD COMPREHENSIVE METABOLIC PANE Kit 05-23-2024 Albumin [Mass/Vol] 3.6 g/dL Normal 3.6-5.1 [facility] Comment on above: Performed By: #### 6 , 72997 #### [facility] [address], [address] [place] [address] Chemical Technician: Bryce Larsen MD Albumin/Globulin [Mass ratio] 1.3 {ratio} Normal 1.0-2.5 [facility] Comment on above: Performed By: #### 6 , 68740 #### [facility] [address], [address] [place] [address] Chemical Technician: Bryce Larsen MD ALP [Catalytic activity/Vol] 87 U/L Normal 37-153 [facility] Comment on above: Performed By: #### 6 22, 25186 #### [facility] of [address], [address] [place] [address] Chemical Technician: Bryce Larsen MD ALT [Catalytic activity/Vol] 15 U/L Normal 6-29 [facility] Comment on above: Performed By: #### 6 22, 93709 #### [facility] [place] [address] Chemical Technician: Bryce Larsen MD AST [Catalytic activity/Vol] 31 U/L Normal 10-35 [facility] Comment on above: Performed By: #### 6 22, 54880 #### [facility] [place] [address] Chemical Technician: Bryce Larsen MD Bilirubin [Mass/Vol] 0.5 mg/dL Normal 0.2-1.2 [facility] Comment on above: Performed By: #### 6 , 95219 #### [facility] [place] [address] Chemical Technician: Bryce Larsen MD Calcium [Mass/Vol] 9.1 mg/dL Normal 8.6-10.4 [facility] Comment on above: Performed By: #### 6 22, 84180 #### [facility] [place] [address] Chemical Technician: Bryce Larsen MD Chloride [Moles/Vol] 103 mmol/L Normal 98-110 [facility] Comment on above: Performed By: #### 6 22, 41089 #### [facility] [place] [address] Chemical Technician: Bryce Larsen MD CO2 [Moles/Vol] 27 mmol/L Normal 20-32 [facility] Comment on above: Performed By: #### 6 22, 59022 #### [facility] [place] [address] Chemical Technician: Bryce Larsen MD Creatinine [Mass/Vol] 1.04 mg/dL High 0.60-1.[address] [facility] Comment on above: Performed By: #### 6 , 22547 #### [facility] [place] [address] Chemical Technician: Bryce Larsen MD GFR/1.73 sq M.predicted among non-blacks MDRD (S/P/Bld) [Vol rate/Area] 55 mL/min/{1.73_m2} Low > OR = 60 [facility] Comment on above: Performed By: #### 6 , 02018 #### [facility] [place] [address] Chemical Technician: Bryce Larsen MD Globulin (S) [Mass/Vol] 2.7 g/dL Normal 1.9-3.7 [facility] Comment on above: Performed By: #### 6 , 55829 #### [facility] [place] [address] Chemical Technician: Bryce Larsen MD Glucose [Mass/Vol] 73 mg/dL Normal 65-139 [facility] Comment on above: Result Comment: Non-fasting reference interval Performed By: #### 6 22, 94155 #### [facility] [place] [address] Chemical Technician: Bryce Larsen MD Potassium [Moles/Vol] 4.7 mmol/L Normal 3.5-5.[address] [facility] Comment on above: Performed By: #### 6 , 56652 #### [facility] [place] [address] Chemical Technician: Bryce Larsen MD Protein [Mass/Vol] 6.3 g/dL Normal 6.1-8.1 [facility] Comment on above: Performed By: #### 6 , 64274 #### [facility] [place] [address] Chemical Technician: Bryce Larsen MD Sodium [Moles/Vol] 137 mmol/L Normal 135-146 [facility] Comment on above: Performed By: #### 6 22, 40671 #### [facility] [address], [address] [place] [address] Chemical Technician: Bryce Larsen MD Urea nitrogen [Mass/Vol] 15 mg/dL Normal 7-25 [facility] Comment on above: Performed By: #### 6 22, 58988 #### [facility] [address], [address] [place] [address] Chemical Technician: Bryce Larsen MD Urea nitrogen/Creatinine [Mass ratio] 14 mg/mg Normal 6- [facility] Comment on above: Performed By: #### 6 22, 66634 #### [facility] [address], [address] [place] [address] Chemical Technician: Bryce Larsen MD MAGNESIUMon 05-23-2024 Magnesium [Mass/Vol] 1.9 mg/dL Normal 1.5-2.5 [facility] Comment on above: Order Comment: FASTI NG:NO FASTING: NO Performed By: #### 6 22, 96317 #### [facility] [address], [address] [place] [address] Chemical Technician: Bryce Larsen MD ALL BASIC METABOLIC PANELon 05-16-2024 Anion gap [Moles/Vol] 12 mmol/L [facility] Calcium [Mass/Vol] 9 mg/dL 8.5 - 10. 1 mg/dL [facility] Chloride [Moles/Vol] 98 mmol/L 98 - 10 7 mmol/L [facility] CO2 [Moles/Vol] 29.6 mmol/L 21.0 - 32.0 mmol/L [facility] Creatinine [Mass/Vol] 1.42 mg/dL High 0.55 - 1.02 mg/dL [facility] GFR/1.73 sq M.predicted CKD-EPI (S/P/Bld) [Vol rate/Area] 43 Low >=60 mL/min/1.7 [address]m [address] [facility] Glucose [Mass/Vol] 74 mg/dL 74 - 106 mg/dL [facility] Interpretation and review of laboratory results Abnormal [facility] Potassium [Moles/Vol] 3.6 mmol/L 3.5 - 5.1 mmol/L [facility] Sodium [Moles/Vol] 136 mmol/L 136 - 145 mmol/L [facility] EGFR-NON AF LAO 36 Low >=60 mL/min/1.7 3m 2 [facility] Urea nitrogen [Mass/Vol] 36 mg/dL High 7.0 - 18.0 mg/dL [facility] Urea nitrogen/Creatinine [Mass ratio] 25.4 mg/mg [facility] XR chest 2V*on 04-29-2024 XR chest 2V* [facility] [place] [address] [place] [address] XRay Report Signed Patient: Luma Ribeiro MR#: [id number] : 1945 Acct:[id number] Age/Sex: 78 / F ADM Date: 04/29/24 Loc: XDUCLY Room: Type: [facility] 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 STITCH SEPARATOR Copies to: Mala Sapp APRN Ordering Provider: [...] R Christopher M.D.04/29/2024 4:00 PM Dictation Location: [place] [address] Transcribed By: ALEXEY 04/29/24 1600 Dictated By: Jose R Christopher DO 04/29/24 1559 Signed By: 04/29/24 1600 Normal [facility] XR CHEST 2 VIEWSon 4 [...] de hand and wrist EMG 1 Extremeityon [facility] 7-8 Nerveson 03-07-[address] [facility] Established Visit (Orthopaed ic Surgery)on 10-04-2022 Established [...] Complaint RT shoulder Ongoing issue X rays [employer] today History of Present Illness New Patient [...] normal pronation supination wrist flexion extension and family day carer strength. Distal pulses and sensation are intact. Limited forward flexion to about 25 degrees lateral abduction to about 15 unable to perform any external rotation but internal he can get to the small of her back. Her exam does not allow for much of a true Neer's Shelby or Gwynedd's test. Diagnostics: See dictated report from today, previous outside CT scan report of the humerus reviewed, and is available in the [facility] chart. 1 Procedure: None Assessment: Chronic shoulder [...] the patient's CT scan report reviewed in [facility] chart Other 1 than the anterior medial [...] grammatical areas may persist related to the [employer] software (more content not included)... Normal [facility] Radiologyon 10-04-2022 XR Shoulder 2 Views [facility] Phone: SHOULDER, CMPLT, MIN 2 VIEWS on 10-04-2022 SHOULDER, CMPLT, MIN 2 VIEWS Patient Name: LUMA RIBEIRO STUDY: SHOULDER, CMPLT, MIN 2 VIEWS; Right; 10/04/2022 1:49 pm INDICATION: pain M25.519: Shoulder pain. ACCESSION NUMBER(S): [id number] ORDERING CLINICIAN: TANIYA AL FINDINGS: Multiple views [...] Electronically signed by: TANIYA AL MD Normal [facility] CT HUMERUS RIGHT W/O CONTRAS Ton 09-12-2022 [...] by Pernell Wiley on 09/12/2022 1127 Normal [facility] XR Chest 2 Views*on 09-13-19 23 [...] identified. Report reported and signed by Pernell Wliey on 09/12/2022 1101 Normal [facility] XR CHEST 2 Von 09-05-2022 XR [...] ISAEL HANSEN Date: 2022-09-05 15:11 Normal [facility] XR KUB 1 VIEWon 09-05-2022 XR [...] by: ISAEL HANSEN Date: 2022-09-05 15:10 Normal [facility] AMYLASEon 09-03-2022 Amylase [Catalytic activity/Vol] 34 U/L Normal 25-115 [facility] Comment on above: Performed By: #### L IPA, CMP, CMADM, BNP, GRACIELA #### [facility] [address] [place] [address] Dr. Yonny Meza BNPon 09-03-2022 Natriuretic peptide B (Bld) [Mass/Vol] 241.0 pg/mL Normal <=1,800.0 [facility] Comment on above: Performed By: #### L IPA, CMP, CMADM, BNP, GRACIELA #### [facility] [address] [place] [address] Dr. Yonny Meza CARDIAC SRINIVASA ADMITon 023 CK [Catalytic activity/Vol] 154 U/L Normal 26-192 [facility] Comment on above: Performed By: #### L IPA, CMP, CMADM, BNP, GRACIELA #### [facility] [address] [address] [address] Yonny Meza CK.MB [Mass/Vol] 1.42 ng/mL Normal <=3.60 [facility] Comment on above: Performed By: #### L IPA, CMP, CMADM, BNP, GRACIELA #### [facility] [address] [place] [address] Dr. Yonny Meza HSTROP 13.9 pg/mL Normal 4.0-51.3 [facility] Comment on above: Result Comment: CUT- OFF POINTS HAVE BEEN ESTABLISHED BASED ON THE FOURTH UNIVERSAL DEFINITIONS OF MYOCARDIAL INFARCTION. THE UPPER REFERENCE LIMIT (URL) OF TROPONIN, DEFINED THE 99TH PERCENTILE OF cTnI DISTRIBUTION IN A REFERENCE POPULATION, HAS BEEN CONFIRMED THE DECISION THRESHOLD FOR [place] DIAGNOSIS. Performed By: #### L IPA, CMP, CMADM, BNP, GRACIELA #### [facility] [address] [place] [address] Dr. Yonny Meza DARION 63 ng/mL Normal 9-82 [facility] Comment on above: Performed By: #### L IPA, CMP, CMADM, BNP, GRACIELA #### [facility] [address] [place] [address] Dr. Yonny Meza CBC AUTO DIFFon 09-03-2022 BASO # 0.0 103/ul Normal 0.0-0.1 [facility] Comment on above: Performed By: #### L IPA, CMP, CMADM, BNP, GRACIELA #### [facility] [address] [place] [address] Dr. Yonny Meza Basophils/100 WBC (Bld) 0.4 % Normal 0.2-2.0 [facility] Comment on above: Performed By: #### L IPA, CMP, CMADM, BNP, GRACIELA #### [facility] [address] [place] [address] Dr. Yonny Meza EO # 0.1 103/ul Normal 0.0-0.7 [facility] Comment on above: Performed By: #### L IPA, CMP, CMADM, BNP, GRACIELA #### [facility] [address] [place] [address] Dr. Yonny Meza Eosinophils/100 WBC (Bld) 1.6 % Normal 0.9-7.0 [facility] Comment on above: Performed By: #### L IPA, CMP, CMADM, BNP, GRACIELA #### [facility] [address] [place] [address] Dr. Yonny Meza Erythrocyte distribution width (RBC) [Ratio] 12.6 % Normal 11.0-15.0 [facility] Comment on above: Performed By: #### L IPA, CMP, CMADM, BNP, GRACIELA #### [facility] [address] [place] [address] Dr. Yonny Meza Hematocrit (Bld) [Volume fraction] 38.9 % Normal 36.0-48.0 [facility] Comment on above: Performed By: #### L IPA, CMP, CMADM, BNP, GRACIELA #### [facility] [address] [place] [address] Dr. Yonny Meza Hemoglobin (Bld) [Mass/Vol] 13.0 g/dL Normal 12.0-16.0 [facility] Comment on above: Performed By: #### L IPA, CMP, CMADM, BNP, GRACIELA #### [facility] [address] [place] [address] Dr. Yonny Meza IG # 0.02 10e3/ul Normal 0.00-0.03 [facility] Comment on above: Performed By: #### L IPA, CMP, CMADM, BNP, GRACIELA #### [facility] [address] [place] [address] Dr. Yonny Meza IG % 0.3 % Normal 0.0-0.5 [facility] Comment on above: Performed By: #### L IPA, CMP, CMADM, BNP, GRACIELA #### [facility] [address] [place] [address] Dr. Yonny Meza LYMPH # 2.0 103/ul Normal 1.2-3.8 [facility] Comment on above: Performed By: #### L IPA, CMP, CMADM, BNP, GRACIELA #### [facility] [address] [place] [address] Dr. Yonny Meza Lymphocytes/100 WBC (Bld) 25.3 % Normal 20.5-60.0 [facility] Comment on above: Performed By: #### L IPA, CMP, CMADM, BNP, GRACIELA #### [facility] [address] [place] [address] Dr. Yonny Meza MANUAL DIFF REQ NO Normal [facility] Comment on above: Performed By: #### L IPA, CMP, CMADM, BNP, GRACIELA #### [facility] [address] [place] [address] Dr. Yonny Meza MCH (RBC) [Entitic mass] 31.8 pg Normal 26.7-34.0 [facility] Comment on above: Performed By: #### L IPA, CMP, CMADM, BNP, GRACIELA #### [facility] [address] [place] [address] Dr. Yonny Meza MCHC (RBC) [Mass/Vol] 33.4 g/dL Normal 29.9-35.2 [facility] Comment on above: Performed By: #### L IPA, CMP, CMADM, BNP, GRACIELA #### [facility] [address] [place] [address] Dr. Yonny Meza MCV (RBC) [Entitic vol] 95.1 fL Normal 81.0-99.0 [facility] Comment on above: Performed By: #### L IPA, CMP, CMADM, BNP, GRACIELA #### [facility] [address] [place] [address] Dr. Yonny Meza MONO # 0.9 103/ul Critically high 0.3-0.8 [facility] Comment on above: Performed By: #### L IPA, CMP, CMADM, BNP, GRACIELA #### [facility] [address] [place] [address] Dr. Yonny Meza Monocytes/100 WBC (Bld) 11.5 % Normal 1.7-12.0 [facility] Comment on above: Performed By: #### L IPA, CMP, CMADM, BNP, GRACIELA #### [facility] [address] [place] [address] Dr. Yonny Meza NEUT # 4.8 103/ul Normal 1.4-6.5 [facility] Comment on above: Performed By: #### L IPA, CMP, CMADM, BNP, GRACIELA #### [facility] [address] [place] [address] Dr. Yonny Meza Neutrophils/100 WBC (Bld) 60.9 % Normal 43.0-75.0 [facility] Comment on above: Performed By: #### L IPA, CMP, CMADM, BNP, GRACIELA #### [facility] [address] [address] [address] Yonny Meza Platelet mean volume (Bld) [Entitic vol] 10.1 fL Normal 9.5-13.5 [facility] Comment on above: Performed By: #### L IPA, CMP, CMADM, BNP, GRACIELA #### [facility] [address] [place] [address] Dr. Yonny Meza PLT 252 103/ul Normal 150-450 [facility] Comment on above: Performed By: #### L IPA, CMP, CMADM, BNP, GRACIELA #### [facility] [address] [place] [address] Dr. Yonny Meza RBC 4.09 106/ul Critically low 4.20-5.40 [facility] Comment on above: Performed By: #### L IPA, CMP, CMADM, BNP, GRACIELA #### [facility] [address] [place] [address] Dr. Yonny Meza WBC 7.9 103/ul Normal 4.0-11.0 [facility] Comment on above: Performed By: #### L IPA, CMP, CMADM, BNP, GRACIELA #### [facility] [address] [place] [address] ABD/PELVIS WO CONon [...] [place] Date: 2022-09-03 01:11 Normal [facility] ER URINE PROFILEon 3 Bilirubin Ql (U) Negative Normal NEGATIVE [facility] Comment on above: Performed By: #### L IPA, CMP, CMADM, BNP, GRACIELA #### [facility] [address], [place] [address] Dr. Yonny Meza Clarity (U) CLEAR Normal CLEAR [facility] Comment on above: Performed By: #### L IPA, CMP, CMADM, BNP, GRACIELA #### [facility] [address], [place] [address] Dr. Yonny Meza Color (U) LT. YELLOW Normal YELLOW [facility] Comment on above: Performed By: #### L IPA, CMP, CMADM, BNP, GRACIELA #### [facility] [address] [address] [address] Yonny PTAEL A micrscopic examina tion will be performed if indicated. Normal [facility] Comment on above: Performed By: #### L IPA, CMP, CMADM, BNP, GRACIELA #### [facility] [address] [address] [address] Yonny Meza Glucose Ql (U) Negative Normal NEGATIVE [facility] Comment on above: Performed By: #### L IPA, CMP, CMADM, BNP, GRACIELA #### [facility] [address] [address] [address] Yonny Meza Hemoglobin Ql (U) Negative Normal NEGATIVE [facility] Comment on above: Performed By: #### L IPA, CMP, CMADM, BNP, GRACIELA #### [facility] [address] [address] [address] Yonny Meza Ketones Ql (U) Negative Normal NEGATIVE [facility] Comment on above: Performed By: #### L IPA, CMP, CMADM, BNP, GRACIELA #### [facility] [address] [address] [address] Yonny Meza LEUKOCYTES Negative Normal NEGATIVE [facility] Comment on above: Performed By: #### L IPA, CMP, CMADM, BNP, GRACIELA #### [facility] [address] [address] [address] Yonny Meza Nitrite Ql (U) Negative Normal NEGATIVE [facility] Comment on above: Performed By: #### L IPA, CMP, CMADM, BNP, GRACIELA #### [facility] [address] [address] [address] Yonny Meza pH (U) 7.0 [pH] Normal 5-9 [facility] Comment on above: Performed By: #### L IPA, CMP, CMADM, BNP, GRACIELA #### [facility] [address] [address] [address] Yonny Meza SPEC GRAVITY 1.015 Normal 1.005-<=1. 025 [facility] Comment on above: Performed By: #### L IPA, CMP, CMADM, BNP, GRACIELA #### [facility] [address] [place] [address] Dr. Yonny Meza UA PROTEIN Negative Normal NEGATIVE/ TRACE [facility] Comment on above: Performed By: #### L IPA, CMP, CMADM, BNP, GRAICELA #### [facility] [address] [place] [address] Dr. Yonny Meza UR MICRO IND NOT INDICATED Normal [facility] Comment on above: Performed By: #### L IPA, CMP, CMADM, BNP, GRACIELA #### [facility] [address] [place] [address] Dr. Yonny Meza Urobilinogen Qn (U) 0.2 {Arnaud'U}/dL Normal 0.2 - 1. 0 [facility] Comment on above: Performed By: #### L IPA, CMP, CMADM, BNP, GRACIELA #### [facility] [address] [place] [address] Dr. Yonny Meza LACTATE/LACTIC ACIDon 2022 Lactate [Moles/Vol] 2.3 mmol/L Critically high 0.4-2.0 [facility] Comment on above: Performed By: #### L ACT #### [facility] [address] [place] [address] Dr. Yonny Meza Lactate [Moles/Vol] 2.2 mmol/L Critically high 0.4-2.0 [facility] Comment on above: Performed By: #### L IPA, CMP, CMADM, BNP, GRACIELA #### [facility] [address] [place] [address] Dr. Yonny Meza LIPASEon 09-03-2022 Lipase [Catalytic activity/Vol] 88.0 U/L Normal 73.0-393.0 [facility] Comment on above: Performed By: #### L IPA, CMP, CMADM, BNP, GRACIELA #### [facility] [address] [place] [address] Dr. Yonny Meza PROF 14(COMP METB)on 023 Albumin [Mass/Vol] 3.3 g/dL Critically low 3.4-5.0 [facility] Comment on above: Performed By: #### L IPA, CMP, CMADM, BNP, GRACIELA #### [facility] [address] [place] [address] Dr. Yonny Meza Albumin/Globulin [Mass ratio] 0.9 {ratio} Normal [facility] Comment on above: Performed By: #### L IPA, CMP, CMADM, BNP, GRACIELA #### [facility] [address] [address] [address] Yonny Meza ALP [Catalytic activity/Vol] 122 U/L Critically high 46-116 [facility] Comment on above: Performed By: #### L IPA, CMP, CMADM, BNP, GRACIELA #### [facility] [address] [place] [address] Dr. Yonny Meza ALT [Catalytic activity/Vol] 21 U/L Normal 14-59 [facility] Comment on above: Performed By: #### L IPA, CMP, CMADM, BNP, GRACIELA #### [facility] [address] [place] [address] Dr. Yonny Meza Anion gap [Moles/Vol] 12.4 mmol/L Normal [facility] Comment on above: Performed By: #### L IPA, CMP, CMADM, BNP, GRACIELA #### [facility] [address] [place] [address] Dr. Yonny Meza AST [Catalytic activity/Vol] 24 U/L Normal 15-37 [facility] Comment on above: Performed By: #### L IPA, CMP, CMADM, BNP, GRACIELA #### [facility] [address] [address] [address] Yonny Meza Bilirubin [Mass/Vol] 0.4 mg/dL Normal 0.2-1.0 [facility] Comment on above: Performed By: #### L IPA, CMP, CMADM, BNP, GRACIELA #### [facility] [address] [place] [address] Dr. Yonny Meza Calcium [Mass/Vol] 8.7 mg/dL Normal 8.5-10.1 [place] Comment on above: Performed By: #### L IPA, CMP, CMADM, BNP, GRACIELA #### [facility] [address] [address] [address] Yonny Meza Chloride [Moles/Vol] 105 mmol/L Normal 98-107 [facility] Comment on above: Performed By: #### L IPA, CMP, CMADM, BNP, GRACIELA #### [facility] [address] [address] [address] Yonny Meza CO2 [Moles/Vol] 28.0 mmol/L Normal 21.0-32.0 [facility] Comment on above: Performed By: #### L IPA, CMP, CMADM, BNP, GRACIELA #### [facility] [address] [place] [address] Dr. Yonny Meza Creatinine [Mass/Vol] 1.11 mg/dL Critically high 0.55-1.02 [facility] Comment on above: Performed By: #### L IPA, CMP, CMADM, BNP, GRACIELA #### [facility] [address] [place] [address] Dr. Yonny Meza EGFR-AF LAO 58 mL/min/1.73m2 Critically low >=60 [facility] Comment on above: Performed By: #### L IPA, CMP, CMADM, BNP, GRACIELA #### [facility] [address] [place] [address] Dr. Yonny Meza EGFR-NON AF LAO 48 mL/min/1.73m2 Critically low >=60 [facility] Comment on above: Performed By: #### L IPA, CMP, CMADM, BNP, GRACIELA #### [facility] [address] [address] [address] Yonny Meza Globulin (S) [Mass/Vol] 3.7 g/dL Normal [facility] Comment on above: Performed By: #### L IPA, CMP, CMADM, BNP, GRACIELA #### [facility] [address] [address] [address] Yonny Meza Glucose [Mass/Vol] 152 mg/dL Critically high 74-106 [facility] Comment on above: Performed By: #### L IPA, CMP, CMADM, BNP, GRACIELA #### [facility] [address] [address] [address] Yonny Meza Potassium [Moles/Vol] 3.4 mmol/L Critically low 3.5-5.1 [facility] Comment on above: Performed By: #### L IPA, CMP, CMADM, BNP, GRACIELA #### [facility] [address] [address] [address] Yonny Meza Protein [Mass/Vol] 7.0 g/dL Normal 6.4-8.2 [facility] Comment on above: Performed By: #### L IPA, CMP, CMADM, BNP, GRACIELA #### [facility] [address] [place] [address] Dr. Yonny Meza Sodium [Moles/Vol] 142 mmol/L Normal 136-145 [facility] Comment on above: Performed By: #### L IPA, CMP, CMADM, BNP, GRACIELA #### [facility] [address] [place] [address] Dr. Yonny Meza Urea nitrogen [Mass/Vol] 14.0 mg/dL Normal 7.0-18.0 [facility] Comment on above: Performed By: #### L IPA, CMP, CMADM, BNP, GRACIELA #### [facility] [address] [place] [address] Dr. Yonny Meza Urea nitrogen/Creatinine [Mass ratio] 12.6 mg/mg Normal [facility] Comment on above: Performed By: #### L IPA, CMP, CMADM, BNP, GRACIELA #### [facility] [address] [place] [address] Dr. Yonny Meza PROTIMEon 09-03-2022 INR Coag (PPP) [Relative time] 1.05 {INR} Normal [facility] Comment on above: Performed By: #### L IPA, CMP, CMADM, BNP, GRACIELA #### [facility] [address] [place] [address] Dr. Yonny Meza INR GUIDELINES SEE BELOW Normal [facility] Comment on above: Result Comment: ASCENCION RED INR: 2.0 - 3.0 CONDITIONS NOT LISTED BELOW 2.5 - 3.5 FOR PROSTHETIC HEART VALVE REPLACEMENT 2.5 - 3.5 RECURRENT THROMBOSIS Performed By: #### L IPA, CMP, CMADM, BNP, GRACIELA #### [facility] [address] [address] [address] Yonny Meza PT Coag (PPP) [Time] 11.1 s Normal 9.0-11.6 [facility] Comment on above: Performed By: #### L IPA, CMP, CMADM, BNP, GRACIELA #### [facility] [address], [place] [address] Dr. Yonny Meza PTTon 09-03-2022 aPTT Coag (Bld) [Time] 26.7 s Normal 22.3-36.2 [facility] Comment on above: Performed By: #### L IPA, CMP, CMADM, BNP, GRACIELA #### [facility] [address] [address] [address] Yonny Meza XR CHEST 1 Von [...] by: HATTIE [place] Date: 2022-09-03 00:08 Normal [facility] MAMM SCREEN 3D RON CADon 06-06-2022 MAMM SCREEN 3D RON CAD Patient: LUMA RIBEIRO Exam Date: 06/06/2022 : 1945 Gender:F Ordering : DR ROC STEELE M.D. Admission #: [id number] Family : Order #: [id number] CLICK HERE TO VIEW EXAM RADIOLOGY REPORT [...] breast cancer at age 61. LOCATION: [facility] BREAST COMPOSITION: Scattered areas fibroglandular density. [...] MD on 06/07/2022 at 08:06 Approved by: Lsia Frederick MD on 06/07/2022 at 08:09 Normal [facility] No Panel Informationon 12-16 Please click on the link to view the study images Normal -[facility] Work Phone: Radiologyon 12-03-2020 XR Pelvis and Hip - left 2 Views Normal [facility] Work Phone: MRI Humerus w/wo Contraston 11-20-2020 MRI Humerus w/wo Contrast Normal [facility] Work Phone: Otheron 02-13-2020 Interpreted by: BONIFACIO WARE 15:34MRN: [id number] Name: GEMALUMA STUDY:HIP, UNILATERAL W/PELVIS WHEN PERFORMED 2-3 VIEWS; Right;02/13/2020 1:58 pm INDICATION:pain. 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 No acute bony abnormality orperiprosthetic fracture appreciated. Electronically signed by: TASIA BIRD 10/15/20 15:34 Normal [facility] Work Phone: Complete Blood Count + Diffe rentialon 01-30-2020 Basophils (Bld) [#/Vol] 0.04 {x10E9/L} See Below [facility] Work Phone: Comment on above: Reference Range: 0.0 0 - 0.10 Basophils/100 WBC (Bld) 0.2 % 0.0 - 2.[address] [facility] Work Phone: Eosinophils (Bld) [#/Vol] 0.01 {x10E9/L} See Below [facility] Work Phone: Comment on above: Reference Range: 0.0 0 - 0.40 Eosinophils/100 WBC (Bld) 0.1 % 0.0 - 6.[address] [facility] Work Phone: Erythrocyte distribution width (RBC) [Ratio] 13.1 % See Below [facility] Work Phone: Comment on above: Reference Range: 11. 5 - 14.5 Hematocrit (Bld) [Volume fraction] 34.8 % below low threshold See Below [facility] Work Phone: Comment on above: Reference Range: 36. 0 - 46.0 Hemoglobin (Bld) [Mass/Vol] 11.3 g/dL below low threshold See Below [facility] Work Phone: Comment on above: Reference Range: 12. 0 - 16.0 Lymphocytes (Bld) [#/Vol] 2.21 {x10E9/L} See Below [facility] Work Phone: Comment on above: Reference Range: 0.8 0 - 3.00 Lymphocytes/100 WBC (Bld) 12.5 % See Below [facility] Work Phone: [phone] Comment on above: Reference Range: 13. 0 - 44.0 MCHC (RBC) [Mass/Vol] 32.5 g/dL See Below [facility] Work Phone: [phone] Comment on above: Reference Range: 32. 0 - 36.0 MCV (RBC) [Entitic vol] 99 fL 80 - 100 [facility] Work Phone: [phone] Monocytes (Bld) [#/Vol] 1.82 {x10E9/L} above high threshold See Below [facility] Work Phone: [phone] Comment on above: Reference Range: 0.0 5 - 0.80 Monocytes/100 WBC (Bld) 10.3 % 2.0 - 10.0 [facility] Work Phone: [phone] Neutrophils/100 WBC (Bld) 76.3 % See Below [facility] Work Phone: [phone] Comment on above: Reference Range: 40. 0 - 80.0 Platelets (Bld) [#/Vol] 234 {x10E9/L} 150 - 450 [facility] Work Phone: [phone] RBC (Bld) [#/Vol] 3.52 {x10E12/L} below low threshold See Below [facility] Work Phone: [phone] Comment on above: Reference Range: 4.0 0 - 5.20 WBC (Bld) [#/Vol] 17.7 {x10E9/L} above high threshold 4.4 - 11.3 [facility] Work Phone: [phone] Complete Blood Count + Differential 0.6 % 0.0 - 0.9 [facility] Work Phone: [phone] Comment on above: Immature Granulocyte Count (IG) includes promyelocytes, myelocytes and metamyelocytes but does not include bands. Percent differential counts (%) should be interpreted in the context of the absolute cell counts (cells/L). Complete Blood Count + Differential 13.52 {x10E9/L} above high threshold See Below [facility] [place] Work Phone: Comment on above: Reference Range: 1.6 0 - 5.50 Metabolic Panelon 01-30-2020 Anion gap [Moles/Vol] 8 mmol/L below low threshold 10 - [address] [facility] [place] [place] Work Phone: Calcium [Mass/Vol] 8.8 mg/dL 8.6 - 10.[address] [facility] [place] Work Phone: [phone] Chloride [Moles/Vol] 101 mmol/L 98 - 107 [facility] [place] Work Phone: [phone] CO2 [Moles/Vol] 32 mmol/L 21 - 32 [facility] [place] Work Phone: Creatinine [Mass/Vol] 1.00 mg/dL See Below [facility] [place] Work Phone: [phone] Comment on above: Reference Range: 0.5 0 - 1.05 Glucose [Mass/Vol] 128 mg/dL above high threshold 74 - 99 [facility] [place] Work Phone: [phone] Potassium [Moles/Vol] 4.2 mmol/L 3.5 - 5.3 [facility] [place] Work Phone: [phone] Sodium [Moles/Vol] 137 mmol/L 136 - 145 [facility] [place] Work Phone: [phone] Urea nitrogen [Mass/Vol] 14 mg/dL 6 - 23 [facility] [place] Work Phone: [phone] Otheron 01-30-2020 65 {mL/min/1.73m2} >[address] [facility] [address] [facility] [place] Work Phone: [phone] Comment on above: CALCULATIONS OF TONE MATED GFR ARE PERFORMED USING THE MDRD STUDY EQUATION FOR THE IDMS-TRACEABLE CREATININE METHODS. CLIN CHEM 2007;53:766-72 54 {mL/min/1.73m2} Abnormal >60 [facility] Work Phone: Otheron 01-29-2020 Interpreted by: TCMOZC45/01/20 15:21MRN: [id number] Name: LUMA RIBEIRO STUDY:HIP, UNILATERAL W/PELVIS WHEN PERFORMED 2-3 VIEWS; 01/29/2020 12:25 pm INDICATION:s/p right ROSSANA. COMPARISON:01/16/2020 ORDERING CLINICIAN:TASIA BIRD FINDINGS:Pelvis and right hip, three views Interval right total hip arthroplasty noted without periprostheticfracture or lucency. There is no dislocation. IMPRESSION:Right total hip arthroplasty without immediate complicationsElectronically signed by: RAJIV 01/30/20 15:21 Normal [facility] Work Phone: XR Pelvis 1 or 2 views Please click on the link to view the study images Normal [facility] Work Phone: Coronavirus 2019 RNA by PCR, Screening Asymptomticon 01-27-2020 Coronavirus 2019 RNA by PCR, Screening Asymptomtic NOT DETECTED See Below [facility] Work Phone: Comment on above: [...] make patient management decisions.Fact sheet for providers: https://www.fda.gov/media/302734/downloadFact sheet for patients: https://www.fda.gov/media/409968/downloadThis test has received FDA Emergency Use Authorization (EUA) and has been verified by [facility] ([facility]). This test is only authorized for the duration of time that circumstances exist to justify the authorization of the emergency use of in vitro diagnostic tests for the detection of SARS-CoV-2 virus and/or diagnosis of COVID-19 infection under section 564(b)(1) of the Act, 21 U.S.C. 360bbb-3(b)(1), unless the authorization is terminated or revoked sooner. [facility] is certified under CLIA-88 as qualified to perform high complexity testing. Testing is performed in the [facility] laboratories located at [address] [place] [address]. Activated Partial Thrombopla stin Timeon 01-20-2020 aPTT Coag (PPP) [Time] 29 {sec} 25 - 35 [facility] Work Phone: Comment on above: THE APTT IS NO LONGE R USED FOR MONITORING UNFRACTIONATED HEPARIN THERAPY. FOR MONITORING HEPARIN THERAPY, USE THE HEPARIN ASSAY. Complete Blood Count + Diffe rentialon 01-20-2020 Basophils (Bld) [#/Vol] 0.04 {x10E9/L} See Below [facility] Work Phone: Comment on above: Reference Range: 0.0 0 - 0.10 Basophils/100 WBC (Bld) 0.5 % 0.0 - 2.0 [facility] Work Phone: Eosinophils (Bld) [#/Vol] 0.09 {x10E9/L} See Below [facility] Work Phone: Comment on above: Reference Range: 0.0 0 - 0.40 Eosinophils/100 WBC (Bld) 1.0 % 0.0 - 6.0 [facility] Work Phone: [phone] Erythrocyte distribution width (RBC) [Ratio] 12.9 % See Below [facility] Work Phone: Comment on above: Reference Range: 11. 5 - 14.5 Hematocrit (Bld) [Volume fraction] 44.6 % See Below [facility] [place] Work Phone: Comment on above: Reference Range: 36. 0 - 46.0 Hemoglobin (Bld) [Mass/Vol] 14.5 g/dL See Below [facility] [place] Work Phone: [phone] Comment on above: Reference Range: 12. 0 - 16.0 Lymphocytes (Bld) [#/Vol] 3.41 {x10E9/L} above high threshold See Below [facility] [place] Work Phone: [phone] Comment on above: Reference Range: 0.8 0 - 3.00 Lymphocytes/100 WBC (Bld) 38.4 % See Below [facility] Work Phone: Comment on above: Reference Range: 13. 0 - 44.0 MCHC (RBC) [Mass/Vol] 32.5 g/dL See Below [facility] [place] Work Phone: [phone] Comment on above: Reference Range: 32. 0 - 36.0 MCV (RBC) [Entitic vol] 100 fL 80 - 100 [facility] Work Phone: [phone] Monocytes (Bld) [#/Vol] 0.81 {x10E9/L} above high threshold See Below [facility] [place] Work Phone: [phone] Comment on above: Reference Range: 0.0 5 - 0.80 Monocytes/100 WBC (Bld) 9.1 % 2.0 - 10.[address] [facility] [address] [place] Work Phone: [phone] (Bld) [#/Vol] 4.49 {x10E9/L} See Below [facility] [place] Work Phone: [phone] Comment on above: Reference Range: 1.6 0 - 5.50 Neutrophils/100 WBC (Bld) 50.7 % See Below [facility] Work Phone: Comment on above: Reference Range: 40. 0 - 80.0 Platelets (Bld) [#/Vol] 261 {x10E9/L} 150 - 450 [facility] Work Phone: [phone] RBC (Bld) [#/Vol] 4.48 {x10E12/L} See Below [facility] Work Phone: [phone] Comment on above: Reference Range: 4.0 0 - 5.20 WBC (Bld) [#/Vol] 8.9 {x10E9/L} 4.4 - 11.3 [facility] Work Phone: [phone] Complete Blood Count + Differential 0.3 % 0.0 - 0.9 [facility] Work Phone: [phone] Comment on above: Immature Granulocyte Count (IG) includes promyelocytes, myelocytes and metamyelocytes but does not include bands. Percent differential counts (%) should be interpreted in the context of the absolute cell counts (cells/L). Fructosamine, Serumon 2019 Fructosamine [Moles/Vol] 265 umol/L 0-285 [facility] Work Phone: Comment on above: Published reference interval for apparently healthy subjectsbetween age 20 and 60 is 205 - 285 umol/L and in a poorlycontrolled diabetic population is 228 - 563 umol/L with amean of 396 umol/L. Hematologyon 01-20-2020 INR Coag (PPP) [Relative time] 1.1 {INR} 0.9 - 1.1 [facility] Work Phone: [phone] PT Coag (PPP) [Time] 13.0 {sec} See Below [facility] Work Phone: [phone] Comment on above: Reference Range: 10. 1 - 13.3 Metabolic Panelon 01-20-2020 ALP [Catalytic activity/Vol] 100 U/L 33 - 136 [facility] [place] Work Phone: Anion gap [Moles/Vol] 13 mmol/L 10 - 20 [facility] [place] Work Phone: Bilirubin [Mass/Vol] 0.6 mg/dL 0.0 - 1.2 [facility] [place] Work Phone: Calcium [Mass/Vol] 9.7 mg/dL 8.6 - 10.[address] [facility] [address] [facility] [place] Work Phone: Chloride [Moles/Vol] 101 mmol/L 98 - 107 [facility] [place] Work Phone: [phone] CO2 [Moles/Vol] 32 mmol/L 21 - 32 [facility] [place] Work Phone: Creatinine [Mass/Vol] 1.01 mg/dL See Below - [facility] [place] Work Phone: Comment on above: Reference Range: 0.5 0 - 1.05 Glucose [Mass/Vol] 88 mg/dL 74 - [address] [facility] [address] [facility] [place] Work Phone: Potassium [Moles/Vol] 3.9 mmol/L 3.5 - 5.3 - [facility] [place] Work Phone: Protein [Mass/Vol] 7.6 g/dL 6.4 - 8.[address] [facility] [address] [facility] [place] Work Phone: Sodium [Moles/Vol] 142 mmol/L 136 - [address] [facility] [address] [facility] [place] Work Phone: Urea nitrogen [Mass/Vol] 15 mg/dL 6 - 23 [facility] [place] Work Phone: Otheron 01-20-2020 100 1 -[facility] [place] Work Phone: [phone] [facility] [place] Work Phone: [phone] [address] [place] Work Phone: [phone] [address] [facility] [place] Work Phone: [phone] [address] [facility] [place] Work Phone: [phone] [address] [facility] [place] Work Phone: [phone] Sinus rhythm with occasional premature ventricular complexes [facility] [place] Work Phone: [phone] 1 [facility] [place] Work Phone: [phone] [email or web address] 1:[email or web address]/ [email or web address]?Ret rieveTestByDateTime?Patient HO=[id number]&Date= 0&Time=14%3a54%3a12%3a00&Te stType=ECG&Site=11&OutputTy pe=PDF&Ext=PDF -[facility] [place] Work Phone: [phone] [address] [facility] [place] Work Phone: [phone] 1 [facility] [place] Work Phone: [phone] [address] [facility] [place] Work Phone: [phone] [address] [facility] [place] Work Phone: [phone] [address] [facility] [place] Work Phone: [phone] [address] [facility] [place] Work Phone: [phone] Albumin BCP dye [Mass/Vol] 4.4 g/dL 3.4 - 5.[address] [facility] [address] [place] Work Phone: [phone] With P-5'-P [Catalytic activity/Vol] 16 U/L 7 - 45 [facility] [place] Work Phone: Comment on above: Patients treated wit h Sulfasalazine may generate falsely decreased results for ALT. AST With P-5'-P [Catalytic activity/Vol] 23 U/L 9 - 39 [facility] [facility] [employer] Work Phone: 65 {mL/min/1.73m2} >[address] [facility] [employer] [employer] Work Phone: Comment on above: CALCULATIONS OF TONE MATED GFR ARE PERFORMED USING THE MDRD STUDY EQUATION FOR THE IDMS-TRACEABLE CREATININE METHODS. CLIN CHEM 2007;53:766-72 54 {mL/min/1.73m2} Abnormal >[address] [facility] [employer] Phone: Urinalysison 01-20-2020 Appearance (U) HAZY CLEAR -[facility] [place] Phone: Color (U) YELLOW See Below -[facility] [employer] [place] [employer] Work Phone: [phone] Comment on above: Reference Range: STR AW,YELLOW Glucose Ql (U) Negative NEGATIVE -[facility] [employer] Work Phone: [phone] Ketones Ql (U) Negative NEGATIVE -[facility] [facility] [place] Phone: [phone] Leukocyte esterase Test strip Ql (U) Negative NEGATIVE -[place] [facility] [employer] [facility] [place] Phone: pH (U) 7.0 [pH] 5.0 - 8.0 [facility] [employer] Work Phone: [phone] Protein (U) [Mass/Vol] Negative NEGATIVE -[facility] [employer] [place] [employer] Work Phone: [phone] RBC (U) [#/Vol] Negative NEGATIVE [facility] [employer] Work Phone: [phone] Specific gravity (U) [Rel density] 1.019 See Below -[facility] [employer] [place] Phone: [phone] Comment on above: Reference Range: 1.0 05 - 1.035 Urinalysis Negative NEGATIVE [facility] Work Phone: Urinalysis 2.0 mg/dL above high threshold 0.0 - 1.9 [facility] Work Phone: Comment on above: [...] Otheron 01-16-2020 Interpreted by: AGNES ALVARADO01/16/20 13:42MRN: [id number] Name: LUMA RIBEIRO STUDY:HIP, UNILATERAL W/PELVIS WHEN PERFORMED 2-3 VIEWS; Right; 01/16/20201:39 pm INDICATION:pain. ORDERING CLINICIAN:HARSHAL ALVARADO FINDINGS:AP lateral right hip x-ray shows end-stage yemjqvwzikpmpbcerh-ha-odhs arthrosis noted. 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 Electronically signed by: HARSHAL ALVARADO 01/16/20 13:42 Normal [facility] Work Phone: Vital Signs Date Time Vital Sign Value Performing Clinician Facility 2024 15:00-0400 Diastolic blood pressure 90 mm[Hg] Amber Hawley MD Work Phone: [facility] 2024 15:00-0400 Systolic blood pressure 130 mm[Hg] Amber Hawley MD Work Phone: [facility] 2024 14:11-0400 Body height 162.6 cm Amber Hawley MD Work Phone: [facility] 2024 14:11-0400 Body mass index (BMI) [Ratio] 44.97 kg/m2 Amber Hawley MD Work Phone: [facility] 2024 14:11-0400 Body weight 118.84 kg Amber Hawley MD Work Phone: [facility] 2024 14:11-0400 Heart rate 72 /min Amber Hawley MD Work Phone: [facility] 10-16-2024 11:33-0400 Body height 157.5 cm Kamila Pride [employer] Work Phone: [facility] 10-16-2024 11:33-0400 Body mass index (BMI) [Ratio] 48.47 kg/m2 Kamila Bigg [employer] Work Phone: [facility] 10-16-2024 11:33-0400 Body weight 120.2 kg Kamila Espitiavely [employer] OPERATOR Work Phone: [facility] 10-16-2024 11:33-0400 Diastolic blood pressure 101 mm[Hg] Kamila Bigg [employer] OPERATOR Work Phone: [facility] 10-16-2024 11:33-0400 Heart rate 77 /min Kamila Bigg [employer] OPERATOR Work Phone: [facility] 10-16-2024 11:33-0400 Respiratory rate 17 /min Kamila Catano [employer] OPERATOR Work Phone: [facility] 10-16-2024 11:33-0400 SaO2% (BldA) [Mass fraction] 96 % Kamila Espitiavely [employer]INE OPERATOR Work Phone: [facility] 10-16-2024 11:33-0400 Systolic blood pressure 182 mm[Hg] Kamila Catano [employer] OPERATOR Work Phone: [facility] 10-10-2024 15:03-0400 Body height 157.5 cm Alex Alfredo DPM Work Phone: [facility] 10-10-2024 15:03-0400 Body mass index (BMI) [Ratio] 49.02 kg/m2 Alex Alfredo DPM Work Phone: [facility] 10-10-2024 15:03-0400 Body weight 121.56 kg Alex Alfredo DPM Work Phone: [facility] 10-10-2024 15:03-0400 Respiratory rate 18 /min Alex Alfredo DPM Work Phone: [facility] 09-18-2024 11:00-0400 Body height 162.[address] 09-18-2024 11:00-0400 Body mass index (BMI) [Ratio] 46.17 kg/m2 [address] 09-18-2024 11:00-0400 Body weight 122.[address] 09-18-2024 11:00-0400 Diastolic blood pressure 86 mm[Hg] [address] 09-18-2024 11:00-0400 Systolic blood pressure 124 mm[Hg] [address] 09-18-2024 10:44-0400 Diastolic blood pressure 78 mm[Hg] [address] 09-18-2024 10:44-0400 Heart rate 67 /min [address] 09-18-2024 10:44-0400 Systolic blood pressure 122 mm[Hg] [address] 08-19-2024 11:24-0400 Body height 157.5 cm Roc Steele MD Work Phone: [facility] 08-19-2024 11:24-0400 Body mass index (BMI) [Ratio] 49.02 kg/m2 Roc Steele MD Work Phone: [facility] 08-19-2024 11:24-0400 Body weight 121.56 kg Roc Steele MD Work Phone: [facility] 08-19-2024 11:24-0400 Diastolic blood pressure 86 mm[Hg] Roc Steele MD Work Phone: [facility] 08-19-2024 11:24-0400 Heart rate 89 /min Roc Steele MD Work Phone: [facility] 08-19-2024 11:24-0400 SaO2% (BldA) [Mass fraction] 96 % Roc Steele MD Work Phone: [facility] 08-19-2024 11:24-0400 Systolic blood pressure 138 mm[Hg] Roc Steele MD Work Phone: [facility] 08-01-2024 14:45-0400 Body height 157.5 cm Alex Alfredo DPM Work Phone: [facility] 08-01-2024 14:45-0400 Body mass index (BMI) [Ratio] 48.65 kg/m2 Alex Alfredo DPM Work Phone: [facility] 08-01-2024 14:45-0400 Body weight 120.66 kg Alex Alfredo DPM Work Phone: [facility] 08-01-2024 14:45-0400 Respiratory rate 16 /min Alex Alfredo DPM Work Phone: [facility] 08-01-2024 13:31-0400 Body height 157.5 cm Kamila Pride [employer] OPERATOR Work Phone: [facility] 08-01-2024 13:31-0400 Body mass index (BMI) [Ratio] 48.73 kg/m2 Kamila Bigg [employer] OPERATOR Work Phone: [facility] 08-01-2024 13:31-0400 Body weight 120.84 kg Kamila Bigg [employer] OPERATOR Work Phone: [facility] 08-01-2024 13:31-0400 Diastolic blood pressure 82 mm[Hg] Kamila Catano [employer] M[employer] OPERATOR Work Phone: [facility] 08-01-2024 13:31-0400 Heart rate 88 /min Kamila Bigg [employer] MACHINE OPERATOR Work Phone: [facility] 08-01-2024 13:31-0400 Respiratory rate 17 /min Kamila Catano [employer]INE OPERATOR Work Phone: [facility] 08-01-2024 13:31-0400 SaO2% (BldA) [Mass fraction] 99 % Kamila Catano [employer] MACHINE OPERATOR Work Phone: [facility] 08-01-2024 13:31-0400 Systolic blood pressure 134 mm[Hg] Kamila Pride [employer] MACHINE OPERATOR Work Phone: [facility] 07-15-2024 11:25-0400 Body height 162.6 cm Amber Hawley MD Work Phone: [facility] 07-15-2024 11:25-0400 Body mass index (BMI) [Ratio] 46.17 kg/m2 Amber Hawley MD Work Phone: [facility] 07-15-2024 11:25-0400 Body weight 122.02 kg Amber Hawley MD Work Phone: [facility] 07-15-2024 11:25-0400 Diastolic blood pressure 88 mm[Hg] Amber Hawley MD Work Phone: [facility] 07-15-2024 11:25-0400 Heart rate 93 /min Amber Hawley MD Work Phone: [facility] 07-15-2024 11:25-0400 Systolic blood pressure 128 mm[Hg] Amber Hawley MD Work Phone: [facility] 07-11-2024 12:59-0400 Body height 157.5 cm Kamila Pride [employer] OPERATOR Work Phone: [facility] 07-11-2024 12:59-0400 Body mass index (BMI) [Ratio] 49.93 kg/m2 Kamila Pride [employer] MACHINE OPERATOR Work Phone: [facility] 07-11-2024 12:59-0400 Body weight 123.83 kg Kamila Pride [employer] MACHINE OPERATOR Work Phone: [facility] 07-11-2024 12:59-0400 Diastolic blood pressure 80 mm[Hg] Kamila Pride [employer] MACHINE OPERATOR Work Phone: [facility] 07-11-2024 12:59-0400 Heart rate 87 /min Kamila Pride [employer] MACHINE OPERATOR Work Phone: [facility] 07-11-2024 12:59-0400 SaO2% (BldA) [Mass fraction] 97 % Kamila Catano [employer] MACHINE OPERATOR Work Phone: [facility] 07-11-2024 12:59-0400 Systolic blood pressure 130 mm[Hg] Kamila Catano [employer] MACHINE OPERATOR Work Phone: [facility] 07-03-2024 11:31-0500 Body height 157.5 cm Kamila Catano [employer] MACHINE OPERATOR Work Phone: [facility] 07-03-2024 11:31-0500 Body mass index (BMI) [Ratio] 50.22 kg/m2 Kamila Catano [employer] MACHINE OPERATOR Work Phone: [facility] 07-03-2024 11:31-0500 Body weight 124.56 kg Kamila Catano [employer] MACHINE OPERATOR Work Phone: [facility] 07-03-2024 11:31-0500 Diastolic blood pressure 82 mm[Hg] Kamila Bigg [employer] MACHINE OPERATOR Work Phone: [facility] 07-03-2024 11:31-0500 Heart rate 74 /min Kamila Catano [employer] MACHINE OPERATOR Work Phone: [facility] 07-03-2024 11:31-0500 Respiratory rate 17 /min Kamila Bigg [employer] MACHINE OPERATOR Work Phone: [facility] 07-03-2024 11:31-0500 SaO2% (BldA) [Mass fraction] 94 % Kamila Bigg [employer] MACHINE OPERATOR Work Phone: [facility] 07-03-2024 11:31-0500 Systolic blood pressure 136 mm[Hg] Kamila Bigg [employer] MACHINE OPERATOR Work Phone: [facility] 06-11-2024 11:07-0500 Body height 157.5 cm Kamila Bigg [employer] MACHINE OPERATOR Work Phone: [facility] 06-11-2024 11:07-0500 Body mass index (BMI) [Ratio] 49.2 kg/m2 Kamila Bigg [employer] MACHINE OPERATOR Work Phone: [facility] 06-11-2024 11:07-0500 Body weight 122.02 kg Kamila Bigg [employer] MACHINE OPERATOR Work Phone: [facility] 06-11-2024 11:07-0500 Diastolic blood pressure 78 mm[Hg] Kamila Pride [employer] MACHINE OPERATOR Work Phone: [facility] 06-11-2024 11:07-0500 Heart rate 76 /min Kamila Pride [employer] MACHINE OPERATOR Work Phone: [facility] 06-11-2024 11:07-0500 Respiratory rate 17 /min Kamila Pride [employer] MACHINE OPERATOR Work Phone: [facility] 06-11-2024 11:07-0500 SaO2% (BldA) [Mass fraction] 99 % Kamila Pride [employer] MACHINE OPERATOR Work Phone: [facility] 06-11-2024 11:07-0500 Systolic blood pressure 134 mm[Hg] Kamila Pride [employer] MACHINE OPERATOR Work Phone: [facility] 05-23-2024 14:37-0500 Body height 157.5 cm Alex Alfredo DPM Work Phone: [facility] 05-23-2024 14:37-0500 Body mass index (BMI) [Ratio] 50.3 kg/m2 Alex Alfredo DPM Work Phone: [facility] 05-23-2024 14:37-0500 Body weight 124.74 kg Alex Alfredo DPM Work Phone: [facility] 05-23-2024 14:37-0500 Respiratory rate 18 /min Alex Alfredo DPM Work Phone: [facility] 05-22-2024 10:11-0500 Body height 157.5 cm Kamila Pride [employer] MACHINE OPERATOR Work Phone: [facility] 05-22-2024 10:11-0500 Body mass index (BMI) [Ratio] 50.33 kg/m2 Kamila Pride [employer] MACHINE OPERATOR Work Phone: [facility] 05-22-2024 10:11-0500 Body weight 124.83 kg Kamila Catano [employer] MACHINE OPERATOR Work Phone: [facility] 05-22-2024 10:11-0500 Diastolic blood pressure 80 mm[Hg] Kamila Bigg [employer] MACHINE OPERATOR Work Phone: [facility] 05-22-2024 10:11-0500 Heart rate 77 /min Kamila Bigg [employer] MACHINE OPERATOR Work Phone: [facility] 05-22-2024 10:11-0500 Respiratory rate 18 /min Kamila Catano [employer] MACHINE OPERATOR Work Phone: [facility] 05-22-2024 10:11-0500 SaO2% (BldA) [Mass fraction] 99 % Kamila Catano [employer] MACHINE OPERATOR Work Phone: [facility] 05-22-2024 10:11-0500 Systolic blood pressure 128 mm[Hg] Kamila Bigg [employer] MACHINE OPERATOR Work Phone: [facility] 05-15-2024 11:32-0500 Body height 157.5 cm Kamila Catano [employer] MACHINE OPERATOR Work Phone: [facility] 05-15-2024 11:32-0500 Body mass index (BMI) [Ratio] 48.54 kg/m2 Kamila Bigg [employer] MACH[employer] OPERATOR Work Phone: [facility] 05-15-2024 11:32-0500 Body weight 120.39 kg Kamila Catano [employer] MACHINE OPERATOR Work Phone: [facility] 05-15-2024 11:32-0500 Diastolic blood pressure 76 mm[Hg] Kamila Catano [employer] MACHINE OPERATOR Work Phone: [facility] 05-15-2024 11:32-0500 Heart rate 97 /min Kamila Bigg [employer] MACHINE OPERATOR Work Phone: [facility] 05-15-2024 11:32-0500 Respiratory rate 18 /min Kamila Bigg [employer] MACHINE OPERATOR Work Phone: [facility] 05-15-2024 11:32-0500 SaO2% (BldA) [Mass fraction] 98 % Kamila Bigg [employer] MACHINE OPERATOR Work Phone: [facility] 05-15-2024 11:32-0500 Systolic blood pressure 126 mm[Hg] Kamila Catano [employer] MACHINE OPERATOR Work Phone: [facility] 05-07-2024 10:53-0500 Body height 157.5 cm Kamila Bigg [employer] MACHINE OPERATOR Work Phone: [facility] 05-07-2024 10:53-0500 Body mass index (BMI) [Ratio] 48.87 kg/m2 Kamila Catano [employer] MACHINE OPERATOR Work Phone: [facility] 05-07-2024 10:53-0500 Body weight 121.2 kg Kamila Bigg COAL BRIQUETTE MACHINE OPERATOR Work Phone: [facility] 05-07-2024 10:53-0500 Diastolic blood pressure 82 mm[Hg] Kamila Catano COAL BRIQUETTE MACHINE OPERATOR Work Phone: [facility] 05-07-2024 10:53-0500 Heart rate 88 /min Kamila Bigg COAL BRIQUETTE MACHINE OPERATOR Work Phone: [facility] 05-07-2024 10:53-0500 Respiratory rate 18 /min Kamila Bigg COAL BRIQUETTE MACHINE OPERATOR Work Phone: [facility] 05-07-2024 10:53-0500 SaO2% (BldA) [Mass fraction] 95 % Kamila Bigg COAL BRIQUETTE MACHINE OPERATOR Work Phone: [facility] 05-07-2024 10:53-0500 Systolic blood pressure 130 mm[Hg] Kamila Bigg COAL BRIQUETTE MACHINE OPERATOR Work Phone: [facility] 04-03-2024 08:32-0500 Body height 157.5 cm Kamila Bigg COAL BRIQUETTE MACHINE OPERATOR Work Phone: [facility] 04-03-2024 08:32-0500 Body mass index (BMI) [Ratio] 49.6 kg/m2 Kamila Bigg COAL BRIQUETTE MACHINE OPERATOR Work Phone: [facility] 04-03-2024 08:32-0500 Body weight 123.02 kg Kamila Bigg COAL BRIQUETTE MACHINE OPERATOR Work Phone: [facility] 04-03-2024 08:32-0500 Diastolic blood pressure 80 mm[Hg] Kamila Bigg COAL BRIQUETTE MACHINE OPERATOR Work Phone: [facility] 04-03-2024 08:32-0500 Heart rate 74 /min Kamila Catano COAL BRIQUETTE MACHINE OPERATOR Work Phone: [facility] 04-03-2024 08:32-0500 Respiratory rate 17 /min Kamila Bigg COAL BRIQUETTE MACHINE OPERATOR Work Phone: [facility] 04-03-2024 08:32-0500 SaO2% (BldA) [Mass fraction] 98 % Kamila Bigg COAL BRIQUETTE MACHINE OPERATOR Work Phone: [facility] 04-03-2024 08:32-0500 Systolic blood pressure 126 mm[Hg] Kamila Bigg COAL BRIQUETTE MACHINE OPERATOR Work Phone: [facility] 03-05-2024 11:19-0500 Body height 157.5 cm Kamila Bigg COAL BRIQUETTE MACHINE OPERATOR Work Phone: [facility] 03-05-2024 11:19-0500 Body mass index (BMI) [Ratio] 50.85 kg/m2 Kamila Bigg COAL BRIQUETTE MACHINE OPERATOR Work Phone: [facility] 03-05-2024 11:19-0500 Body weight 126.1 kg Kamila Bigg COAL BRIQUETTE MACHINE OPERATOR Work Phone: [facility] 03-05-2024 11:19-0500 Diastolic blood pressure 76 mm[Hg] Kamila Bigg COAL BRIQUETTE MACHINE OPERATOR Work Phone: [facility] 03-05-2024 11:19-0500 Heart rate 102 /min Kamila Bigg COAL BRIQUETTE MACHINE OPERATOR Work Phone: [facility] 03-05-2024 11:19-0500 SaO2% (BldA) [Mass fraction] 98 % Kamila Bigg COAL BRIQUETTE MACHINE OPERATOR Work Phone: [facility] 03-05-2024 11:19-0500 Systolic blood pressure 134 mm[Hg] Kamila Bigg COAL BRIQUETTE MACHINE OPERATOR Work Phone: [facility] 02-22-2024 14:09-0400 Body height 157.5 cm Alex Alfredo DPM Work Phone: [facility] 02-22-2024 14:09-0400 Body mass index (BMI) [Ratio] 50.85 kg/m2 Alex Alfredo DPM Work Phone: [facility] 02-22-2024 14:09-0400 Body weight 126.1 kg Alex Alfredo DPM Work Phone: [facility] 02-22-2024 14:09-0400 Diastolic blood pressure 80 mm[Hg] Alex Brown DPM Work Phone: [facility] 02-22-2024 14:09-0400 Heart rate 82 /min Alex Brown DPM Work Phone: [facility] 02-22-2024 14:09-0400 Systolic blood pressure 126 mm[Hg] Alex Brown DPM Work Phone: [facility] 06-15-2023 14:42-0500 Body height 157.5 cm Alex Brown DPM Work Phone: [facility] 06-15-2023 14:42-0500 Body mass index (BMI) [Ratio] 50.48 kg/m2 Alex Brown DPM Work Phone: [facility] 06-15-2023 14:42-0500 Body weight 125.19 kg Alex Brown DPM Work Phone: [facility] 06-15-2023 14:42-0500 Diastolic blood pressure 82 mm[Hg] Alex Brown DPM Work Phone: [facility] 06-15-2023 14:42-0500 Heart rate 84 /min Alex Brown DPM Work Phone: [facility] 06-15-2023 14:42-0500 Systolic blood pressure 133 mm[Hg] Alex Brown DPM Work Phone: [facility] 06-01-2023 15:33-0500 Body height 157.5 cm Alex Brown DPM Work Phone: [facility] 06-01-2023 15:33-0500 Body mass index (BMI) [Ratio] 50.48 kg/m2 Alex Brown DPM Work Phone: [facility] 06-01-2023 15:33-0500 Body weight 125.19 kg Alex Alfredo DPM Work Phone: [facility] 06-01-2023 15:33-0500 Diastolic blood pressure 80 mm[Hg] Alex Alfredo DPM Work Phone: [facility] 06-01-2023 15:33-0500 Heart rate 79 /min Alex Alfredo DPM Work Phone: [facility] 06-01-2023 15:33-0500 Systolic blood pressure 130 mm[Hg] Alex Alfredo DPM Work Phone: [facility] 01-16-2020 15:36-0400 BMI (Body Mass Index) 46.35 kg/m2 Tasia Pelon [facility] [place] Work Phone: [...] 25 minutes Amber Hawley MD Work Phone: [facility] Comment on above: Encounter to discuss test results (Primary Dx); Uses roller walker; Palpitations; Mixed hyperlipidemia; Chest discomfort; CARO on CPAP; Paroxysmal supraventricular tachycardia; Never smoked cigarettes; Body mass index (BMI) 40.0-44.9, adult (Multi) Start: 2024 End: 2024 ambulatory [facility] Start: 11-04-2024 End: 11-04-2024 ambulatory Darno Snachez MD Facility:[facility] Start: 10-16-2024 End: 10-16-2024 Bamboo flowsheet Kamila Pride COAL BRIQUETTE MACHINE OPERATOR Work Phone: [facility] Start: 10-16-2024 End: 10-16-2024 Bamboo flowsheet Kamila Pride COAL BRIQUETTE MACHINE OPERATOR Work Phone: [facility] Start: 10-16-2024 End: 10-16-2024 Office outpatient visit 15 minutes Kamila Pride COAL BRIQUETTE MACHINE OPERATOR Work Phone: [facility] Comment on above: Acute low back pain without sciatica, unspecified back pain laterality (Primary Dx) Start: 10-16-2024 End: 10-18-2024 Refjavier Steele MD Work Phone: [facility] Comment on above: 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 Start: 10-14-2024 End: 10-14-2024 ambulatory Daron Sanchez MD Facility:[facility] Start: 10-10-2024 End: 10-10-2024 Patient encounter procedure [...] Department Unsolicited Start: 09-19-2024 End: 09-19-2024 ambulatory [facility] Start: 09-18-2024 End: 09-18-2024 Subsequent hospital visit by physician Jessica Dobbins Admin Room 1 [facility] Comment on above: Lightheadedness; Chest discomfort; Palpitations; Mixed hyperlipidemia Paroxysmal supravent ricular tachycardia; Abnormal EKG; Palpitations Start: 09-18-2024 End: 09-18-2024 ambulatory [facility] Start: 09-16-2024 End: 09-16-2024 ambulatory Daron Sanchez MD Facility: [facility] Start: 09-10-2024 End: 09-11-2024 Refill Kamila Pride COAL BRIQUETTE MACHINE OPERATOR Work Phone: [facility] Comment [...] 08-01-2024 End: 08-01-2024 Bamboo flowsheet Kamila Pride COAL BRIQUETTE MACHINE OPERATOR Work Phone: [facility] Start: 08-01-2024 End: 08-01-2024 Bamboo flowsheet Kamila Pride COAL BRIQUETTE MACHINE OPERATOR Work Phone: [facility] Start: 08-01-2024 End: 08-01-2024 Office outpatient visit 25 minutes Kamila Pride COAL BRIQUETTE MACHINE OPERATOR Work Phone: [facility] Comment [...] Result Encounter Roc Steele MD Work Phone: [facility] External Department Unsolicited Start: 07-18-2024 End: 07-18-2024 Clinisync Result Encounter Roc Steele MD Work Phone: [facility] External Department Unsolicited Start: 07-15-2024 End: 07-15-2024 Office consultation new/estab patient 60 min Amber Hawley MD Work Phone: [facility] Comment on above: Encounter to [facility] with new doctor; Paroxysmal supraventricular tachycardia (CMS-HCC); Abnormal EKG; Lightheadedness; Chest discomfort; Palpitations; Primary hypertension; Stenosis of carotid artery, unspecified laterality; Mixed hyperlipidemia; Stage 3a chronic kidney disease (Multi); Gastroesophageal reflux disease without esophagitis; At high risk for falls; Uses roller walker; Severe obesity (BMI >= 40) (Multi); Never smoked cigarettes Start: 07-15-2024 End: 07-15-2024 ambulatory [facility] Start: 07-11-2024 End: 07-11-2024 Assay of hemosiderin, quant Kamila Pride NP Work Phone: [facility] Start: 07-11-2024 End: 07-11-2024 Patient encounter procedure Kamila Pride NP Work Phone: [facility] Comment on above: Insomnia, unspecifie d [...] 07-03-2024 End: 07-03-2024 Bamboo flowsheet Kamila Pride COAL BRIQUETTE MACHINE OPERATOR Work Phone: [facility] Start: 07-03-2024 End: 07-03-2024 Bamboo flowshien Pride COAL BRIQUETTE MACHINE OPERATOR Work Phone: [facility] Start: 07-03-2024 End: 07-03-2024 Office outpatient visit 25 minutes Kamila Pride COAL BRIQUETTE MACHINE OPERATOR Work Phone: [facility] Comment on above: Paroxysmal supravent ricular tachycardia (CMS/HCC) (Primary Dx); Primary insomnia; Acute congestive heart failure, unspecified heart failure type (CMS/HCC); Stage 3b chronic kidney disease (HCC) (CMS/HCC); Weakness; Other fatigue; Pain of right hip; Fall, initial encounter Start: 07-03-2024 End: 07-03-2024 ambulatory KAMILA PRIDE Not Available Start: 06-11-2024 End: 06-11-2024 Bamboo flowsheet Kamila Pride COAL BRIQUETTE MACHINE OPERATOR Work Phone: [facility] Start: 06-11-2024 End: 06-11-2024 Bamboo flowsheet Kamila Pride COAL BRIQUETTE MACHINE OPERATOR Work Phone: [facility] Start: 06-11-2024 End: 06-11-2024 Office outpatient visit 25 minutes Kamila Pride COAL BRIQUETTE MACHINE OPERATOR Work Phone: [facility] Comment [...] 05-22-2024 End: 05-22-2024 Bamboo flowsheet Kamila Pride COAL BRIQUETTE MACHINE OPERATOR Work Phone: [facility] Start: 05-22-2024 End: 05-22-2024 Bamboo flowsheet Kamila Pride COAL BRIQUETTE MACHINE OPERATOR Work Phone: [facility] Start: 05-22-2024 End: 05-22-2024 Office outpatient visit 25 minutes Kamila Pride COAL BRIQUETTE MACHINE OPERATOR Work Phone: [facility] Comment on above: Stage 3b chronic kid javon disease (HCC) (CMS/HCC) (Primary Dx); Benign essential hypertension (CMS/HCC); Hypomagnesemia; Pneumonia of both lungs due to infectious organism, unspecified part of lung Start: 05-22-2024 End: 05-22-2024 ambulatory KAMILA PRIDE Not Available Start: 05-16-2024 End: 05-16-2024 Clinisync Result Encounter Kamila Pride COAL BRIQUETTE MACHINE OPERATOR Work Phone: [facility] Department Unsolicited Start: 05-16-2024 End: 05-16-2024 Clinisync Result Encounter Kamila Pride COAL BRIQUETTE MACHINE OPERATOR Work Phone: [facility] Department Unsolicited Start: 05-15-2024 End: 05-15-2024 Office outpatient visit 25 minutes Kamila Pride COAL BRIQUETTE MACHINE OPERATOR Work Phone: [facility] Comment [...] Office outpatient visit 25 minutes Kamila Pride COAL BRIQUETTE MACHINE OPERATOR Work Phone: [facility] Comment [...] End: 04-29-2024 ambulatory Mala Sapp Facility:[facility] Start: 04-15-2024 End: 04-16-2024 Refill Kamila Pride COAL BRIQUETTE MACHINE OPERATOR Work Phone: [facility] Comment on above: Primary insomnia Start: 04-04-2024 End: 04-04-2024 Orders Only Kamila Pride COAL BRIQUETTE MACHINE OPERATOR Work Phone: [facility] Comment on above: Acute pulmonary omid a (CMS/HCC) (Primary Dx); Hypokalemia Start: 04-03-2024 End: 04-03-2024 Bamboo flowsheet Kamila Pride COAL BRIQUETTE MACHINE OPERATOR Work Phone: [facility] Start: 04-03-2024 End: 04-03-2024 Bamboo flowsheet Kamila Pride COAL BRIQUETTE MACHINE OPERATOR Work Phone: [facility] Start: 04-03-2024 End: 04-03-2024 ambulatory KAMILA PRIDE Not Available Start: 04-03-2024 End: 04-03-2024 Office outpatient visit 25 minutes Kamila Pride COAL BRIQUETTE MACHINE OPERATOR Work Phone: [facility] Comment on above: Acute cough (Primary Dx); Rib pain; Fall, initial encounter; Shortness of breath; Lumbosacral spondylosis without myelopathy; Pain of right hand; Right wrist pain; Acute non-recurrent sinusitis of other sinus Start: 04-03-2024 End: 04-03-2024 ambulatory KAMILA PRIDE Not Available Start: 03-07-2024 End: 03-07-2024 Bamboo flowsheet Waqas Dugan DO [facility] Start: 03-07-2024 End: 03-07-2024 Bamboo flowsheet Waqas Dugan DO Work Phone: [facility] [employer] [facility] Start: 03-07-2024 End: 03-07-2024 Patient encounter procedure Bullopher Ritchie DO Work Phone: [facility] Comment on above: Carpal tunnel syndro me on left (Primary Dx) Start: 03-07-2024 End: 03-07-2024 ambulatory WAQAS DUGAN Not Available Start: 03-05-2024 End: 03-05-2024 Bamboo flowsheet Kamila Pride COAL BRIQUETTE MACHINE OPERATOR Work Phone: [facility] Start: 03-05-2024 End: 03-05-2024 Bamboo flowsheet Kamila Pride COAL BRIQUETTE MACHINE OPERATOR Work Phone: [facility] Start: 03-05-2024 End: 03-05-2024 Office outpatient visit 25 minutes Kamila Pride COAL BRIQUETTE MACHINE OPERATOR Work Phone: [facility] Comment on above: Cellulitis of finger of left hand (Primary Dx); Flu vaccine need; Numbness of hand; Encounter for screening mammogram for malignant neoplasm of breast; Lymphadenopathy; Axillary pain, left; Ankylosing spondylitis of thoracic region ([facility]) Start: 03-05-2024 End: 03-05-2024 ambulatory [...] Comment on above: Benign essential hyp ertension ([facility]) Start: 12-14-2023 End: 12-14-2023 ambulatory [...] 10-04-2022 Patient encounter procedure [facility] Work Phone: [facility] [place] Work Phone: Start: 10-04-[address] Roc Steele II Facility:[id number] Start: 09-05-2022 End: 09-05-[address] SARABJIT CORNEJO . Facility:[facility] Start: 09-03-2022 End: 09-03-2022 ambulatory SASHA DUTTA . Facility:[facility] Start: 06-06-2022 End: 06-07-[address] ROC STEELE Facility:[facility] Start: 12-16-2020 Patient encounter procedure Mone Weiss MD Work Phone: [facility] [place] Work Phone: Start: 11-25-2020 Chart Update Tasia Crawford Work Phone: [facility] [place] Work Phone: Start: 10-15-2020 Patient encounter procedure Carmen Bird MD Work Phone: [facility] [place] Work Phone: Start: 02-13-2020 Patient encounter procedure Tasia Bird [facility] [place] Work Phone: Start: 01-16-2020 Patient encounter procedure Tasia Bird [facility] [place] Work Phone: [...] 07-11-2024 Hemoglobin glycosyla isabel a1c Kamila Pride COAL BRIQUETTE MACHINE OPERATOR Work Phone: Start: 05-16-2024 ALL BASIC METABOLIC PANEL Kamila Pride COAL BRIQUETTE MACHINE OPERATOR Work Phone: Start: 05-12-2024 BLOOD CULTURE 1 Generic External Data Provider Start: 03-07-2024 End: 03-07-2024 Needle emg ea extremty w/paraspinl area complete Waqas Dugan DO Work Phone: Implantation of join t prosthesis Tasia Bird Plan of Treatment Date Care Activity Detail Author Start: 07-26-2029 Lipid panel Lipid Panel [facility] Start: 07-26-2026 Screening for osteoporosis Bone Density Scan [facility] Start: 09-18-2025 Echocardiography Echocardiogram [facility] Start: 05-16-2025 End: 05-16-2025 Patient encounter procedure 05/16/2025 2:00 PM EST Office Visit [facility] [address] [facility] [address] [place] [address] Amber Hawley MD [address] [facility] [address] [place] [address] [facility] Start: 12-30-2024 Influenza vaccination Influenza Vaccine (#1) [facility] Start: 12-19-2024 End: 12-19-2024 Patient encounter procedure 12/19/2024 3:00 PM EDT Procedure Visit [facility] [address] [facility] [address] [place] [address] Alex Alfredo DPM [address] [facility] [address] [place] [address] [facility] Start: 11-20-2024 End: 11-20-2024 Professional / ancillary services management 11/20/2024 2:00 PM EDT Ancillary Procedure [address] [address] [facility] Start: 2024 End: 2024 Patient encounter procedure 2024 2:15 PM EDT Office Visit [address] [address] Amber Hawley MD [address] [address] [facility] Start: 2024 End: 2026 Holter monitor study Holter Or Event Pre Press Manager Cardiac Services Routine Palpitations Expected: 2024 (Approximate), Expires: 2026 [facility] Service Area Work Phone: Comment on above: Expected: 2024 (Approximate), Expi res: 2026 Start: 11-04-2024 End: 11-04-2024 Patient encounter procedure 11/04/2024 2:30 PM EDT Office Visit [address] [address] Amber Hawley MD [address] [address] [facility] Start: 10-30-2024 End: 10-30-2024 Patient encounter procedure 10/30/2024 11:30 AM EDT Office Visit [facility] [address] [facility] [address] [place] [address] Kamila Pride, COAL BRIQUETTE MACHINE OPERATOR [address] [facility] [address] [place] [address] [facility] Start: 10-16-2024 End: 10-16-2024 Patient encounter procedure [facility] Comment on above: Arrived Start: 10-10-2024 End: 10-10-2024 Patient encounter procedure 10/10/2024 3:00 PM EDT Procedure Visit [facility] [address] [facility] [address] [place] [id number] Alex Alfredo, DPM [address] [facility] [address] [place] [address] [facility] Start: 09-19-2024 End: 09-19-2024 Professional / ancillary services management 09/19/2024 1:00 PM EDT [facility]illary Procedure [facility] [address] [facility] [address] [place] [address] [facility] Start: 09-19-2024 End: 09-19-2024 Patient encounter procedure Sangeetha Jiménez Start: 09-19-2024 Subsequent hospital visit by physician 09/19/2024 11:30 AM EDT Hospital Encounter Sangeetha Jiménez [address] [facility] [address] [place] [phone] [facility] Start: 09-18-2024 End: 09-18-2024 Patient encounter procedure Sangeetha Jiménez Start: 08-01-2024 End: 08-01-2024 Patient encounter procedure [facility] Comment on above: Arrived Start: 07-23-2024 End: 07-23-2024 Professional / ancillary services management 07/23/2024 11:30 AM EDT Ancillary Procedure [facility] [address] [facility] [address] [place] [id number] [facility] Start: 07-15-2024 End: 07-15-2025 Holter monitor study Holter Or Event Pre Press Manager Cardiac Services Routine Paroxysmal supraventricular tachycardia (CMS-HCC) Abnormal EKG Lightheadedness Chest discomfort Palpitations Expected: 07/15/2024 (Approximate), Expires: 07/15/2025 [facility] Work Phone: Comment on above: Expected: 07/15/2024 (Approximate), Expi res: 07/15/2025 Start: 07-15-2024 End: 07-15-2026 NM Heart Perfusion W stress and W radionuclide IV Nuclear Stress Test Cardiac Nuclear Medicine Routine Lightheadedness Chest discomfort Palpitations Mixed hyperlipidemia Expected: 07/15/2024 (Approximate), Expires: 07/15/2026 [facility] Work Phone: Comment on above: Expected: 07/15/2024 (Approximate), Expi res: 07/15/2026 Start: 07-15-2024 End: 07-15-2026 Heart Transthoracic Transthoracic Echo Complete Echocardiography Routine Paroxysmal supraventricular tachycardia ([facility]) Abnormal EKG Palpitations Expected: 07/15/2024 (Approximate), Expires: 07/15/2026 [facility] Service Area Work Phone: Comment on above: Expected: 07/15/2024 (Approximate), Expi res: 07/15/2026 Start: 07-11-2024 End: 07-11-2025 DXA Skeletal system Views for bone density DEXA bone density Imaging Routine Osteopenia of both hips Decreased estrogen level Expected: 07/11/2024, Expires: 07/11/2025 [facility] [employer] Work Phone: Comment on above: Expected: 07/11/2024, Expires: Start: 07-11-2024 End: 07-11-2025 Lipid 1996 panel - Serum or Plasma Lipid panel Lab Routine Hyperlipidemia, unspecified hyperlipidemia type (CMS/HCC) Medicare annual wellness visit, subsequent Expected: 07/11/2024 (Approximate), Expires: 07/11/2025 [facility] Healthcare Comment on above: Expected: 07/11/2024 (Approximate), Expi res: 07/11/2025 Start: 07-11-2024 End: 07-11-2025 Microalbumin/Creatinine panel in random Urine Microalbumin / creatinine, urine ratio Lab Routine IGT (impaired glucose tolerance) Expected: 07/11/2024 (Approximate), Expires: 07/11/2025 [facility] Healthcare Comment on above: Expected: 07/11/2024 (Approximate), Expi res: 07/11/2025 Start: 07-11-2024 End: 07-11-2024 Patient encounter procedure 07/11/2024 1:00 PM EDT Office Visit [facility] [address] [place] [phone] Kamila Pride NP [address] [place] [address] [facility] Start: 07-06-2024 Medicare Annual Wellness Visit Medicare Annual Wellness Visit (AWV) [facility] Start: 07-05-2024 Medicare Annual Wellness (AWV) Medicare Annual Wellness (AWV) [facility] Start: 07-03-2024 End: 07-03-2025 Comprehensive metabolic 2000 panel - Serum or Plasma Comprehensive metabolic panel Lab Routine Stage 3b chronic kidney disease (HCC) (CMS/HCC) Expected: 07/03/2024 (Approximate), Expires: 07/03/2025 [facility] Healthcare Work Phone: Comment on above: Expected: 07/03/2024 (Approximate), Expi res: 07/03/2025 Start: 07-03-2024 End: 07-03-2025 Magnesium [Mass/volume] in Serum or Plasma Magnesium Lab Routine Stage 3b chronic kidney disease (HCC) (CMS/HCC) Weakness Other fatigue Expected: 07/03/2024 (Approximate), Expires: 07/03/2025 [facility] Healthcare Comment on above: Expected: 07/03/2024 (Approximate), Expi res: 07/03/2025 Start: 07-03-2024 End: 07-03-2025 XR Hip - right 3 Views XR hip right 2 or 3 views Imaging Routine Pain of right hip Fall, initial encounter Expected: 07/03/2024, Expires: 07/03/2025 [facility] Healthcare Comment on above: Expected: 07/03/2024, Expires: Start: 07-03-2024 End: 07-03-2024 Patient encounter procedure 07/03/2024 11:30 AM EST Office Visit [facility] [address] [place] [phone] Kamila Pride NP [address] [place] [address] Arrived [facility] Comment on above: Arrived Start: 06-11-2024 End: 06-11-2025 Natriuretic peptide B [Mass/volume] in Blood B-type natriuretic peptide Lab Routine Acute congestive heart failure, unspecified heart failure type ([facility]/HCC) Expected: 06/11/2024 (Approximate), Expires: 06/11/2025 [facility] Work Phone: Comment on above: Expected: 06/11/2024 (Approximate), Expi res: 06/11/2025 Start: 06-11-2024 End: 06-11-2024 Patient encounter procedure 06/11/2024 11:00 AM EST Office Visit [facility] [address] [place] [address] Kamila Pride, COAL BRIQUETTE MACHINE OPERATOR [address] [place] [address] Arrived [facility] Comment on above: Arrived Start: 05-23-2024 End: 05-23-2024 Patient encounter procedure 05/23/2024 2:40 PM EST Procedure Visit [facility] [address] [place] [address] Alex Alfredo, DPM [address] [address] [facility] Start: 05-22-2024 End: 05-22-2025 CBC panel - Blood by Automated count CBC Lab Routine Stage 3b chronic kidney disease (HCC) ([facility]CC) Expected: 05/22/2024 (Approximate), Expires: 05/22/2025 [facility] [address] [place] [address] Kamila Pride NP [address] [place] [address] Arrived [facility] Comment on above: Arrived Start: 05-16-2024 End: 05-16-2024 Patient encounter procedure 05/16/2024 1:00 PM EST Office Visit [facility] [address] [place] [address] Kamila Pride, COAL BRIQUETTE MACHINE OPERATOR [address] [place] [address] [facility] Start: 05-15-2024 End: 05-15-2025 [...] [address] [place] [address] Kamila Pride, COAL BRIQUETTE MACHINE OPERATOR [address] [place] [address] [facility] Start: 05-14-2024 End: 05-14-2024 Patient encounter procedure 05/14/2024 11:00 AM EST Office Visit [facility] [address] [place] [address] Kamila Pride COAL BRIQUETTE MACHINE OPERATOR [address] [place] [address] [facility] Start: 05-02-2024 End: 05-02-2024 Patient encounter procedure 05/02/2024 2:50 PM EST Procedure Visit [facility] [address] [place] [address] Alex Alfredo, DPM [address] [facility] [facility] [address] [place] [address] [facility] Start: 04-03-2024 [...] [address] [place] [address] Kamila Pride COAL BRIQUETTE MACHINE OPERATOR [address] [place] [address] Arrived [facility] Comment on above: Arrived Start: 03-07-2024 End: 03-07-2024 Patient encounter procedure 03/07/2024 11:00 AM EST Procedure Visit [facility] [address] [place] [address] Waqas Dugan, DO [address] [place] [address] Numbness of hand [facility] [address] [...] Visit [facility] [address] [facility] [address] [place] [id number] Kamila Pride COAL BRIQUETTE MACHINE OPERATOR [address] [place] [address] [place] [address] [facility] Start: 02-22-2024 End: 02-22-2024 Patient encounter procedure [facility] Comment on above: Pain due to onychomycosis of toenails of both feet (Primary Dx) Start: 01-31-2024 Influenza vaccination Influenza Vaccine (#1) [facility] Comment on above: Postponed from 12/31/2023 (Other Medical Reasons) Start: 12-31-2023 COVID-19 Vaccine () COVID-19 Vaccine () [facility] Start: 09-01-2024 Influenza vaccination Influenza Vaccine (#1) [facility] Start: 07-27-2023 End: 07-27-2023 Patient encounter procedure 07/27/2023 3:30 PM EDT Procedure Visit [facility] [address] [facility] [place] [address] [place] [address] Alex Alfredo, EJM [address] [address] [facility] Start: 06-30-2023 Medicare Annual Wellness (AWV) Medicare Annual Wellness (AWV) [facility] Start: 06-29-2023 End: 06-29-2023 Patient encounter procedure 06/29/2023 2:30 PM EST Office Visit [facility] [address] [facility] [address] [place] [address] Alex Alfredo DPM [address] [address] [facility] Start: 06-15-2023 End: 06-15-2023 Patient encounter procedure 06/15/2023 2:30 PM EST Office Visit [facility] [address] [place] [address] Alex Alfredo, DPM [address] [address] [facility] Start: 10-21-2022 Screening for osteoporosis Bone Density Scan [facility] Start: 10-17-2022 NPV, Provider: Roc Alvarado, Status: Pen, Time: 1:30 PM NPV, Provider: Roc Alvarado, Status: Hang, Time: 1:30 PM [facility] Work Phone: Start: 2021 RSV High Risk: (Elderly (60+) or Population) (1 - 1-dose 75+ series) RSV High Risk: (Elderly (60+) or Population) (1 - 1-dose 75+ series) [facility] Start: 01-29-2021 Creatinine measurement Creatinine Level [facility] Start: 01-29-2021 Diabetes mellitus screening Diabetes Screening [facility] Start: 01-29-2021 Potassium measurement Potassium Level [facility] Start: 01-07-2021 FUV, Provider: Tasia Bird, Status: Pen, Time: 2:15 PM FUV, Provider: Tasia Bird, Status: Pen, Time: 2:15 PM -[facility] Work Phone: Start: 12-03-2020 FUV, Provider: Tasia Bird, Status: Pen, Time: 12:45 PM FUV, Provider: Tasia Bird, Status: Pen, Time: 12:45 PM [facility] Work Phone: Start: 1968 DTaP/Tdap/Td Vaccines (1 - Tdap) DTaP/Tdap/Td Vaccines (1 - Tdap) [facility] Start: 1965 Urine screening for protein CKD: Urine Protein Screening [facility] Start: 1964 Diabetes mellitus screening Diabetes Screening [facility] Start: 1964 Hepatitis C screening Hepatitis C Screening [facility] Start: 1945 Echocardiography Echocardiogram [facility] Start: 1945 Lipid panel Lipid Panel [facility] BLOOD CULTURE 1 BLOOD CULTURE 1 Lab Routine 05/12/2024 8:[address] [facility] End: 09-18-2024 NM Heart Perfusion W stress and W radionuclide IV [facility] Service Area Work Phone: Comment on above: Once for 1 Occurrences starting 09/19/19 until 09/18/2024 Immunizations Immunization Date Immunization Notes Care Provider Hao allred 03-05-2024 Influenza, High-dose Seasonal, Quadrivalent, Preservative Free Kamila Pride NP Work Phone: [facility] 03-05-2024 influenza virus vacc ine, unspecified formulation Amber Hawley MD Work Phone: [facility] Work Phone: 03-01-2023 Influenza, High-dose Seasonal, Quadrivalent, Preservative Free Alex Alfredo DPM Work Phone: [facility] 03-01-2023 influenza virus vacc ine, unspecified formulation Roc Steele MD Work Phone: [facility] 03-31-2022 Moderna Bivalent Pereira ster Vaccination Alex Alfredo DPM Work Phone: [facility] 03-23-2022 Influenza, High-dose Seasonal, Quadrivalent, Preservative Free Alex Alfredo DPM Work Phone: [facility] 01-28-2021 Influenza, Seasonal, Quadrivalent, Adjuvanted Alex Alfredo DPM Work Phone: [facility] 01-30-2020 influenza, injectabl e, quadrivalent, preservative free Alex Alfredo DPM Work Phone: [facility] 09-26-2019 zoster vaccine recombinant Alex Alfreod DPM Work Phone: [facility] 05-16-2019 zoster vaccine recombinant Alex Alfredo DPM Work Phone: [facility] 01-31-2018 influenza, high dose seasonal, preservative-free Alex Alfredo DPM Work Phone: [facility] 01-25-2017 influenza, high dose seasonal, preservative-free Alex Alfredo DPM Work Phone: [facility] 02-02-2016 influenza, injectabl e, quadrivalent, contains preservative Alex Alfredo DPM Work Phone: [facility] 02-07-2015 pneumococcal conjuga te vaccine, 13 valent Alex Alfredo DPM Work Phone: [facility] 01-30-2015 seasonal influenza, intradermal, preservative free Alex Alfredo DPM Work Phone: [facility] 02-07-2014 seasonal influenza, intradermal, preservative free Alex Alfredo DPM Work Phone: [facility] 12-11-2013 pneumococcal polysaccharide vaccine, 23 valent Alex Alfredo DPM Work Phone: [facility] 01-17-2012 zoster vaccine, live Zoya Alfredo DPM Work Phone: [facility] Healthcare Payers Date Payer Category Payer Private Health Insurance [id number] 2022 Unknown 2008 Medicare [id number] 2008 Medicare [id number] 1959 Medicare [id number] 1959 Unknown [id number] 1946 Unknown [id number] 2.16.84 0.1.145436.3.579.2.593 1946 Unknown [id number] 2.16.84 0.1.938329.3.579.2.593 1946 Unknown [id number] 2.16.84 0.1.059818.3.579.2.593 1946 Unknown [id number] 2.16.8 40.1.452101.3.579.2.1068 1946 Unknown [id number] 2.16.8 40.1.924840.3.579.2.1259 1946 Unknown [id number] 2.16.8 40.1.547045.3.579.2.1259 1946 Unknown [id number] 2.16.84 0.1.185352.3.579.2.1259 1946 Unknown [id number] 2.16.84 0.1.883674.3.579.2.1259 1946 Unknown [id number] 2.16.84 0.1.423421.3.579.2.1259 1946 Unknown [id number] 2.16.84 0.1.414411.3.579.2.1258 1946 Unknown [id number] 2.16.84 0.1.787942.3.579.2.1258 1946 Unknown [id number] 2.16.84 0.1.245755.3.579.2.1258 1946 Unknown [id number] 2.16.84 0.1.860293.3.579.2.1258 1946 Unknown [id number] 2.16.84 0.1.223112.3.579.2.1258 1946 Unknown [id number] 2.16.84 0.1.241980.3.579.2.1258 1946 Unknown [id number] 2.16.84 0.1.575936.3.579.2.1258 1946 Unknown [id number] 2.16.84 0.1.050048.3.579.2.1258 1946 Unknown [id number] 2.16.84 0.1.119209.3.579.2.1258 1946 Unknown [id number] 2.16.84 0.1.307001.3.579.2.1258 1946 Unknown [id number] 2.16.84 0.1.528675.3.579.2.1258 1946 Unknown [id number] 2.16.84 0.1.399193.3.579.2.1258 1946 Unknown [id number] 2.16.84 0.1.431209.3.579.2.1258 1946 Unknown [id number] 2.16.84 0.1.304830.3.579.2.1258 1946 Unknown [id number] 2.16.84 0.1.343246.3.579.2.1258 1946 Unknown [id number] 2.16.84 0.1.999703.3.579.2.1259 1946 Unknown [id number] 2.16.84 0.1.399232.3.579.2.1259 1946 Unknown [id number] 2.16. 840.1.127714.3.579.2.196 1946 Unknown [id number] 2.16. 840.1.231720.3.579.2.196 1946 Unknown [id number] 2.16. 840.1.151494.3.579.2.196 1946 Unknown [id number] 2.16. 840.1.797817.3.579.2.1244 1946 Unknown [id number] 2.16. 840.1.720009.3.579.2.1244 1946 Unknown [id number] 2.16. 840.1.866873.3.579.2.1244 1946 Unknown [id number] 2.16.8 40.1.123782.3.579.2.1246 1946 Unknown [id number] 2.16.8 40.1.370859.3.579.2.6 1946 Unknown [id number] 2.16.8 40.1.351523.3.579.2.6 1946 Unknown [id number] 2.16.8 40.1.061993.3.579.2.1246 1946 Unknown [id number] 2.16.8 40.1.713190.3.579.2.1246 1946 Unknown [id number] 2.16.8 40.1.362359.3.579.2.1246 Social History Date Type Detail Facility Start: [...] 09-18-2024 Exposure to SARS-CoV-2 (event) Not sure [facility] Start: 2024 Alcoholic beverage intake Ex-drinker (finding) [facility] Work Phone: NEGATED: Highlighted row - - [facility] [place] Work Phone: Medical Equipment Procedure Code Equipment Code Equipment Original Text Equipment Identifier Dates Screw, Low Profile Hex, 6.5 X 15 Mm Case [id number] Start: 01-29-2020 Comment on above: Description: Convert ed from [facility]. Please see archived information for full log information. Screw, Low Profile Hex, 6.5 X 25 Mm Case [id number] Start: 01-29-2020 Comment on above: Description: Convert ed from [facility]. Please see archived information for full log information. Head, Femur V40 36mm +2.5mm Biolox Delta Case [id number] Start: 01-29-2020 Comment on above: Description: Convert ed from [facility]. Please see archived information for full log information. Stem, Femur 132d Sz 5 [place] Ii Case [id number] Start: 01-29-2020 Comment on above: Description: Convert ed from [facility]. Please see archived information for full log information. Shell, Trident Ii, Clusterhole, [place] 52e Case [id number] Start: 01-29-2020 Comment on above: Description: Convert ed from [facility]. Please see archived information for full log information. Liners, Poly 36 X 10 D Trid Crossfire E Case [id number] Start: 01-29-2020 Comment on above: Description: Convert ed from [facility]. Please see archived information for full log information. Functional Status Date Assessment Result Facility 10-16-2024 Patient Health Questionnaire 2 item (PHQ-2) [Reported] [facility] 08-19-2024 Patient Health Questionnaire 2 item (PHQ-2) [Reported] [facility] Healthcare NEGATED: Highlighted row Functional performance Functional status health issues are not documented Disease [facility] [place] Work Phone: Mental Status Date Assessment Result Facility NEGATED: Highlighted row Cognitive function [Interpretation] Cognitive status health issues are not documented Disease [facility] [place] Work Phone: Clinical Notes [...] INJECTION x7 NERVE BLOCK Left 03/26/2019 T12-L3 MA TOTAL HIP ARTHROPLASTY Left [place] (01-29-2020 to 01-30-2020) RADIOFREQUENCY ABLATION Left 06/25/2019 [...] (NEURONTIN) 300 mg, 2 times daily HYDROcodone-acetaminophen ([place]) 5-325 mg tablet 1 tablet, Every 4 [...] XL (TOPROL-XL) 50 mg, oral, Every morning hjcnnyqppoyq-Yx-utag-minerals tablet 1 tablet, Daily nortriptyline (PAMELOR) 30 [...] (241.3 mg elemental) tablet Holter Or Event Pre Press Manager 4. Mixed hyperlipidemia simvastatin (Zocor) 10 mg [...] the presence of Dr. Amber Hawley MD, [facility]. I, Dr. Amber Hawley MD, [facility], personally performed the services described in the documentation as scribed by Katty Iverson LPN in my presence, and confirm it is both accurate and complete. documented in this encounter [facility] Work Phone: 2024 Instructions Katty [...] instructions on exercise. documented in this encounter [facility] Work Phone: 10-17-2024 Telephone encounter Note Luma was seen yesterday called stating that her medication was not sent in yet. Please send meds to [facility] in [place] [facility] 10-17-2024 Miscellaneous Notes Luma was seen yesterday called stating that her medication was not sent in yet. Please send meds to [facility] in [place] documented in this encounter [facility] 10-16-2024 History of Present illness Narrative Images [...] INJECTION x7 NERVE BLOCK Left 03/26/2019 T12-L3 MA TOTAL HIP ARTHROPLASTY Left [place] (01-29-2020 to 01-30-2020) RADIOFREQUENCY ABLATION Left 06/25/2019 [...] follow-ups on file. documented in this encounter [facility] 10-10-2024 History of Present illness Narrative Patient: [...] min Stress: No Stress Concern Present (11/25/2022) [place] [employer] - Occupational Stress Questionnaire Feeling of Stress : Only a little Social Connections: Moderately Isolated (11/25/2022) Social Connection and Isolation Panel [NHANES] Frequency of Communication with Friends and Family: More than three times a week Frequency of Social Gatherings with Friends and Family: Once a week Attends Pentecostal Services: Never Active Member of Clubs or [...] Alex Alfredo DPM documented in this encounter [facility] 08-19-2024 History of Present illness Narrative Images from the original note were not included. HPI prolia injection Additional comments: Here for injection billed and shipped from [employer] Last edited by Katie Ritter LPN on 08/19/2024 11:24 AM. Subjective Patient ID: Luma Ribeiro is a 78 y.o. female who presents for prolia injection (Here for injection billed and shipped from [employer]) and Osteoporosis. Patient complains of osteoporosis. She [...] MOUTH TWICE DAILY 200 capsule 3 HYDROcodone-acetaminophen ([place]) 5-325 MG tablet Take 1 tablet by [...] INJECTION x7 NERVE BLOCK Left 03/26/2019 T12-L3 MA TOTAL HIP ARTHROPLASTY Left [place] (01-29-2020 to 01-30-2020) RADIOFREQUENCY ABLATION Left 06/25/2019 [...] months (around 10/19/2024). documented in this encounter [facility] 08-01-2024 History of Present illness Narrative Patient: [...] min Stress: No Stress Concern Present (11/25/2022) [place] [employer] - Occupational Stress Questionnaire Feeling of Stress : Only a little Social Connections: Moderately Isolated (11/25/2022) Social Connection and Isolation Panel [NHANES] Frequency of Communication with Friends and Family: More than three times a week Frequency of Social Gatherings with Friends and Family: Once a week Attends Pentecostal Services: Never Active Member of Clubs or [...] Alex Alfredo DPM documented in this encounter [facility] 08-01-2024 History of Present illness Narrative Images [...] INJECTION x7 NERVE BLOCK Left 03/26/2019 T12-L3 MA TOTAL HIP ARTHROPLASTY Left [place] (01-29-2020 to 01-30-2020) RADIOFREQUENCY ABLATION Left 06/25/2019 [...] lozenges. Lumbosacral spondylosis without myelopathy - HYDROcodone-acetaminophen ([place]) 5-325 MG tablet; Take 1 tablet by [...] directed. Age-related osteoporosis without current pathological fracture ([facility]) - denosumab (Prolia) 60 MG/ML solution prefilled syringe; Inject 1 mL (60 mg) under the skin 1 (one) time for 1 dose Avoid falls as you can fracture. Take calcium with vitamin D. If you get this medication from your insurance, call the office and we can give you the medication No follow-ups on file. documented in this encounter [facility] 07-15-2024 Note Normal sinus rhythm 93 bpm voltage criteria for left ventricular hypertrophy abnormal R wave progression, 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 Compared to EKG from December 2019, left axis deviation loss of lateral R waves were noted in December 2019. [facility] 07-15-2024 History of Present illness [...] wheeled walkers. Subjective : Was hospitalized at [facility] in May 2024. She was told [...] Medical History: Cardiomegaly Diverticulosis 2012 Edema Glaucoma ([facility]) Heart disease, unspecified History of [...] INJECTION x7 NERVE BLOCK Left 03/26/2019 T12-L3 MA TOTAL HIP ARTHROPLASTY Left [place] (01-29-2020 to 01-30-2020) RADIOFREQUENCY ABLATION Left 06/25/2019 [...] ALPRAZolam (XANAX) 0.25 mg, Nightly PRN HYDROcodone-acetaminophen ([place]) 5-325 mg tablet 1 tablet, Every 4 [...] occurred after the last office visit with nh May 2024 BUN 15 creatinine 1.04 GFR 55 sodium 137 potassium 4.7 liver enzymes normal GFR was 52 in June 2023 Assessment: 1. Encounter to establish care with new doctor ECG 12 Lead 2. Paroxysmal supraventricular tachycardia (CMS-HCC) Follow Up In Cardiology magnesium oxide (Mag-Ox) 400 mg (241.3 mg magnesium) tablet Transthoracic Echo Complete Holter Or Event Pre Press Manager 3. Abnormal EKG Transthoracic Echo Complete Holter Or Event Pre Press Manager 4. Lightheadedness Nuclear Stress Test Holter Or Event Pre Press Manager 5. Chest discomfort Nuclear Stress Test Holter Or Event Pre Press Manager 6. Palpitations Transthoracic Echo Complete Nuclear Stress Test Holter Or Event Pre Press Manager 7. Primary hypertension 8. Stenosis of carotid [...] accurate and complete. documented in this encounter [facility] Work Phone: 07-15-2024 Instructions Katty [...] instructions on exercise. documented in this encounter [facility] Work Phone: 07-11-2024 History of [...] Do you have a medical power of title attorney?: Yes Who is your medical power of title attorney?: Objective : BP 130/80 Pulse 87 [...] 16. Morbid obesity due to excess calories ([facility]) Discussed goal of BMI < [...] this time. 22. Hyperlipidemia, unspecified hyperlipidemia type ([facility]) This is a chronic medical [...] July 11, 2024 documented in this encounter [facility] 07-03-2024 History of Present illness Narrative Images [...] INJECTION x7 NERVE BLOCK Left 03/26/2019 T12-L3 MA TOTAL HIP ARTHROPLASTY Left [place] (01-29-2020 to 01-30-2020) RADIOFREQUENCY ABLATION Left 06/25/2019 [...] orders for this visit: Paroxysmal supraventricular tachycardia ([facility]) - Ambulatory referral to Cardiology; Future Awaiting cardiology appointment. She did not follow up with cardiology as she was supposed to when she got out of the hospital. New referral sent as she wants to go to the magnetic locater that her goes to. Primary insomnia - [...] congestive heart failure, unspecified heart failure type ([facility]) - Ambulatory referral to Cardiology; Future Awaiting cardiology appointment. She did not follow up with cardiology as she was supposed to when she got out of the hospital. New referral sent as she wants to go to the magnetic locater that her goes to. Stage 3b chronic [...] follow-ups on file. documented in this encounter [facility] 06-11-2024 History of Present illness Narrative Images [...] for 3 days and she called the automotive parts counterperson nurse and they advised her to go [...] INJECTION x7 NERVE BLOCK Left 03/26/2019 T12-L3 MA TOTAL HIP ARTHROPLASTY Left [place] (01-29-2020 to 01-30-2020) RADIOFREQUENCY ABLATION Left 06/25/2019 [...] to follow up with Dr. Chavez in [place] [facility]. Await his recommendations. She continue on [...] follow-ups on file. documented in this encounter [facility] 05-23-2024 History of Present illness Narrative Patient: [...] min Stress: No Stress Concern Present (11/25/2022) [place] [employer] - Occupational Stress Questionnaire Feeling of Stress : Only a little Social Connections: Moderately Isolated (11/25/2022) Social Connection and Isolation Panel [NHANES] Frequency of Communication with Friends and Family: More than three times a week Frequency of Social Gatherings with Friends and Family: Once a week Attends Pentecostal Services: Never Active Member of Clubs or [...] and thickness digits 1 through 9 Alex lAfredo DPM documented in this encounter [facility] 05-22-2024 History of Present illness Narrative Images [...] INJECTION x7 NERVE BLOCK Left 03/26/2019 T12-L3 MA TOTAL HIP ARTHROPLASTY Left [place] (01-29-2020 to 01-30-2020) RADIOFREQUENCY ABLATION Left 06/25/2019 [...] follow-ups on file. documented in this encounter [facility] 05-15-2024 History of Present illness Narrative Images from the original note were not included. Subjective Patient ID: Luma Ribeiro is a 78 y.o. female who presents for A F/U FOR PNEUMONIA, CHF Luma presents today for F/U for pneumonia and CHF. Was admitted to [facility] on 05-12-24.She is feeling weak and SOB still. Home health has not started. Pt would benefit from Nursing, PT/OT, and aide. PT was diagnosed with generalized weakness, CHF, And pneumonia. She continues on Doxycycline. The hospital discharge pt with an order for Lasix prn. Pt educated on when to take a prn lasix. She verbalized understanding. The hospital set up [facility] but we will set pt up with Erik as they have a contract with [facility]. She is home bound due to [...] INJECTION x7 NERVE BLOCK Left 03/26/2019 T12-L3 MA TOTAL HIP ARTHROPLASTY Left [place] (01-29-2020 to 01-30-2020) RADIOFREQUENCY ABLATION Left 06/25/2019 [...] follow-ups on file. documented in this encounter [facility] 05-07-2024 History of Present illness Narrative Images [...] TWICE DAILY 200 capsule 3 [] HYDROcodone-acetaminophen ([place]) 5-325 MG tablet Take 1 tablet by [...] INJECTION x7 NERVE BLOCK Left 03/26/2019 T12-L3 MA TOTAL HIP ARTHROPLASTY Left [place] (01-29-2020 to 01-30-2020) RADIOFREQUENCY ABLATION Left 06/25/2019 [...] Morbid (severe) obesity due to excess calories ([facility]) Body mass index (BMI) 45.0-49.9, adult ([facility]) Discussed goal of BMI < [...] follow-ups on file. documented in this encounter [facility] 04-16-2024 Telephone encounter Note OARRS reviewed, Rx sent into patient's pharmacy. [facility] 04-16-2024 Miscellaneous Notes OARRS reviewed, Rx sent into patient's pharmacy. documented in this encounter [facility] 04-03-2024 History of Present illness Narrative Images [...] breathing, coughing, lifting and movement. Treatments tried: [place], cough syrup, muscle relaxer. The treatment provided [...] TWICE DAILY 200 capsule 3 [] HYDROcodone-acetaminophen ([place]) 5-325 MG tablet Take 1 tablet by [...] INJECTION x7 NERVE BLOCK Left 03/26/2019 T12-L3 MA TOTAL HIP ARTHROPLASTY Left [place] (01-29-2020 to 01-30-2020) RADIOFREQUENCY ABLATION Left 06/25/2019 [...] breathing. Lumbosacral spondylosis without myelopathy - HYDROcodone-acetaminophen ([place]) 5-325 MG tablet; Take 1 tablet by [...] follow-ups on file. documented in this encounter [facility] 03-07-2024 Note Carpal tunnel syndro me, left, severe. Progressed substantially when compared to EDX evaluation in 2021. C8 radiculopathy, left, moderate. Progressed when compared to EDX evaluation in [address] [facility] 03-07-2024 Note Carpal tunnel syndro me, left, severe. Progressed substantially when compared to EDX evaluation in 2021. C8 radiculopathy, left, moderate. Progressed when compared to EDX evaluation in [address] [facility] 03-07-2024 History of Present illness Narrative Images from the original note were not included. Reason for Appointment: EMG Patient: Luma Ribeiro : 1945 EMG Computer: [employer] Referring Physician: Kamila Pride CNP EMG: PABLO four corner stayer machine operator: Jimmy Gibson RT(R) Office Location: [place] Reason for EMG: c/o numbness/tingling in left hand/forearm especially in 2nd & 3rd digits, weakness in left hand. No hx of DM. Not on blood thinners. Comments: Procedure was explained to the patient who expressed understanding. Patient appeared to have tolerated the test well despite some discomfort due to the nature of the test. documented in this encounter [facility] 03-05-2024 History of Present illness Narrative Images [...] inciting event Pt feels she has decreased family day carer strength in left hand Hypertension This is [...] MOUTH TWICE DAILY 200 capsule 3 HYDROcodone-acetaminophen ([place]) 5-325 MG tablet Take 1 tablet by [...] at bedtime 90 tablet 1 [DISCONTINUED] HYDROcodone-acetaminophen ([place]) 5-325 MG tablet Take 1 tablet by [...] INJECTION x7 NERVE BLOCK Left 03/26/2019 T12-L3 MA TOTAL HIP ARTHROPLASTY Left [facility] (01-29-2020 to 01-30-2020) RADIOFREQUENCY ABLATION Left 06/25/2019 [...] need - Influenza, high-dose seasonal, quadrivalent, PF (YHL737) (Fluzone High Dose Quad North 0.7mL dose) [...] follow-ups on file. documented in this encounter [facility] 02-29-2024 Telephone encounter Note OARRS reviewed, Rx sent into patient's pharmacy. [facility] 02-29-2024 Miscellaneous Notes OARRS reviewed, Rx sent into patient's pharmacy. Hydrocodone 325 DDM IN [place] She had an appt today for a med follow up with kamila but had to change it due to her not being in. She said she has about 6 pills left. She did reschedule her med follow up for next Monday. documented in this encounter [facility] 02-29-2024 Telephone encounter Note Hydrocodone 325 DDM IN [place]ENS She had an appt today for a med follow up with kamila but had to change it due to her not being in. She said she has about 6 pills left. She did reschedule her med follow up for next Monday. [facility] 01-29-2024 Telephone encounter Note Amlodipine sent [facility] 01-29-2024 Miscellaneous Notes Amlodipine sent documented in this encounter [facility] 06-15-2023 History of Present illness Narrative Patient: [...] Diagnosis Date Cardiomegaly Diverticulosis 2013 Edema Glaucoma ([facility]) Heart disease, unspecified History of lumbar surgery multiple times HTN (hypertension) ([facility]) Hyperlipidemia ([facility]) Insomnia Lumbago Lumbosacral spondylosis without [...] min Stress: No Stress Concern Present (11/25/2022) [place] [employer] - Occupational Stress Questionnaire Feeling of Stress : Only a little Social Connections: Moderately Isolated (11/25/2022) Social Connection and Isolation Panel [NHANES] Frequency of Communication with Friends and Family: More than three times a week Frequency of Social Gatherings with Friends and Family: Once a week Attends Pentecostal Services: Never Active Member of Clubs or [...] Patient may continue with conservative treatments including jzof-bpk-lcvbakd anti-inflammatories and other treatments suggested today. Patient may want to be scheduled for surgical intervention in the near future. Patient have the right hallux subungual exostectomy with the lateral left hallux partial permanent nail avulsion in the near future Alex Alfredo DPM documented in this encounter [facility] 06-01-2023 History of Present illness Narrative Patient: [...] Diagnosis Date Cardiomegaly Diverticulosis 2013 Edema Glaucoma ([facility]) Heart disease, unspecified History of lumbar surgery multiple times HTN (hypertension) ([facility]) Hyperlipidemia ([facility]) Insomnia Lumbago Lumbosacral spondylosis without [...] min Stress: No Stress Concern Present (11/25/2022) [place] [employer] - Occupational Stress Questionnaire Feeling of Stress : Only a little Social Connections: Moderately Isolated (11/25/2022) Social Connection and Isolation Panel [NHANES] Frequency of Communication with Friends and Family: More than three times a week Frequency of Social Gatherings with Friends and Family: Once a week Attends Pentecostal Services: Never Active Member of Clubs or [...] Patient may continue with conservative treatments including ydgx-glu-ullkyrw anti-inflammatories and other treatments suggested today. Patient [...] Alex Alfredo DPM documented in this encounter [facility] Healthcare Evaluation note Diagnosis Subungual exostosis [...] Fall, initial encounter documented in this encounter [facility] HealthcareEvaluation note* Diagnosis Insomnia, unspecified type- Primary [...] failure type (CMS/HCC) documented in this encounter [facility] HealthcareEvaluation note* Diagnosis Encounter to establish care with new doctor Paroxysmal supraventricular tachycardia ([facility]) Paroxysmal supraventricular tachycardia Abnormal EKG Nonspecific [...] Never smoked cigarettes documented in this encounter [facility] Work Phone: Evaluation note* Diagnosis Pain due to onychomycosis of toenails of both feet- Primary documented in this encounter [facility] HealthcareEvaluation note* Diagnosis SOB (shortness of breath)- Primary Shortness of breath Chronic cough Cough Lumbosacral spondylosis without myelopathy Seasonal allergic rhinitis, unspecified trigger Age-related osteoporosis without current pathological fracture (CMS/HCC) documented in this encounter [facility] HealthcareEvaluation note* Diagnosis Age-related osteoporosis without current pathological fracture (CMS/HCC)- Primary Osteopenia of both hips Chronic cough Cough documented in this encounter [facility] HealthcareEvaluation note* Diagnosis Lightheadedness Dizziness and giddiness Chest discomfort Other chest pain Palpitations Mixed hyperlipidemia documented in this encounter [facility] Work Phone: Evaluation note* Diagnosis Paroxysmal supraventricular tachycardia Abnormal EKG Nonspecific abnormal electrocardiogram (ECG) (EKG) Palpitations documented in this encounter [facility] Work Phone: Evaluation note* Diagnosis Pain due to onychomycosis of toenails of both feet- Primary documented in this encounter [facility] HealthcareEvaluation note* Diagnosis Acute low back pain without sciatica, unspecified back pain laterality- Primary documented in this encounter [facility] HealthcareEvaluation note* Diagnosis Lumbosacral spondylosis without myelopathy documented in this encounter [facility] HealthcareEvaluation note* Diagnosis Encounter to discuss test results- Primary Other specified counseling Uses roller walker Palpitations Mixed hyperlipidemia Chest discomfort Other chest pain CARO on CPAP Paroxysmal supraventricular tachycardia Never smoked cigarettes Body mass index (BMI) 40.0-44.9, adult (Multi) documented in this encounter [facility] Work Phone: History of Present illness NarrativeLuma is a 75-year-old female patient of Dr. Bird who is here for ultrasound-guided right intraarticular shoulder injection. She has a history of pain and discomfort. She was seen and evaluated and referred to me for first lifetime intraarticular shoulder injection, which the patient accepts[facility] Work [facility]: History of Present illness Narrative* [...] normal pronation supination wrist flexion extension and family day carer strength. Distal pulses and sensation are intact. Limited forward flexion to about 25 degrees lateral abduction to about 15 unable to perform any external rotation but internal he can get to the small of her back. Herexam does not allow for much of a true Neer's Shelby or Gwynedd's test. * Diagnostics: See dictated report from today, previous outside CT scan report of the humerus reviewed, and is available in the [facility] chart. * Procedure: None * Assessment: Chronic [...] the patient's CT scan report reviewed in [facility] Other than the anterior medial dislocation [...] grammatical areas may persist related to the [employer] software * Taniya Al MD * Office: * . [facility] Work Phone: History of Present illness [...] Diagnosis Date Cardiomegaly Diverticulosis 2013 Edema Glaucoma ([facility]) Heart disease, unspecified History of lumbar surgery multiple times HTN (hypertension) ([facility]) Hyperlipidemia ([facility]) Insomnia Lumbago Lumbosacral spondylosis without myelopathy Myalgia, unspecified site Myositis Occlusion and stenosis of unspecified carotid artery without mention of cerebral infarction CARO (obstructive sleep apnea) Osteoarthrosis unspecified wheteher generalized or localized. unspecified site Osteopenia Paroxysmal supraventricular tachycardia ([facility]) Medications: Current Outpatient Medications: ALPRAZolam [...] min Stress: No Stress Concern Present (11/25/2022) [place] [employer] - Occupational Stress Questionnaire Feeling of Stress : Only a little Social Connections: Moderately Isolated (11/25/2022) Social Connection and Isolation Panel [NHANES] Frequency of Communication with Friends and Family: More than three times a week Frequency of Social Gatherings with Friends and Family: Once a week Attends Pentecostal Services: Never Active Member of Clubs or [...] Alex Alfredo DPM [facility] N[facility]* Other Medical (Routine) - Closed Specialty Diagnoses / Procedures Referred By Aminah beltran Referred To Contact Neurology Diagnoses Numbness of hand Procedures MA OFFICE/OUTPATIENT NEW HIGH MDM 60 MINUTES Kamila Pride NP [address] [facility] [address] [place] [address] Phone: tel: fax: Waqas Dugan DO [address] [place] [address] Phone: tel: fax: Referral ID Status Reason Start Date Expiration Date V isits Requested Visits Authorized [id number] Closed Perform Procedure 03/05/2024 09/01/[address] [facility] Narr[facility]* Cardiac Stress Testing (Routine) - Authorized Specialty Diagnoses / Procedures Referred By Contac t Referred To Contact Radiology Diagnoses Lightheadedness Chest discomfort Palpitations Mixed hyperlipidemia Procedures Nuclear Stress Test CHG MYOCARDIAL SPECT MULTIPLE STUDIES Amber Hawley MD [address] [facility] [address] [place] [address] Phone: tel: fax: Referral ID Status Reason Start Date Expiration Date V isits Requested Visits Authorized [id number] Authorized 07/15/2024 07/15/2025 5 5 [facility] Work Phone: Reason for visit Narrative* Cardiac Stress Testing (Routine) - Authorized Specialty Diagnoses / Procedures Referred By Contac t Referred To Contact Radiology Diagnoses Lightheadedness Chest discomfort Palpitations Mixed hyperlipidemia Procedures Nuclear Stress Test CHG MYOCARDIAL SPECT MULTIPLE STUDIES Amber Hawley MD [address] [address] Phone: tel: fax: Referral ID Status Reason Start Date Expiration Date V isits Requested Visits Authorized [id number] Authorized 07/15/2024 07/15/2025 5 5 [facility] Work Phone: Reason for visit Narrative* CV Imaging (Routine) - Authorized Specialty Diagnoses / Procedures Referred By Contac t Referred To Contact Cardiology Diagnoses Paroxysmal supraventricular tachycardia Abnormal EKG Palpitations Procedures Transthoracic Echo Complete MA ECHO TTHRC R-T 2D W/WOM-MODE COMPL SPEC&COLR D Amber Hawley MD [address] [address] Phone: tel: fax: Referral ID Status Reason Start Date Expiration Date Visits Requested Visits Authorized [id number] Authorized Perform Procedure 07/15/2024 07/15/2025 1 1 [facility] Work Phone: Chief Complaint * New problem * Right shoulder pain MP Refer : RT shoulder ultra sound guided injection* Right shoulder pain, here for injection. 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 Summary Purpose Family History No Family [...] DATE CREATED AUTHOR AUTHOR'S ORGANIZ ATION 09/12/2022 [facility] dical Specialist DATE CREATED AUTHOR AUTHOR'S ORGANIZ ATION 10/09/2022 [facility] DATE CREATED AUTHOR AUTHOR'S ORGANIZ ATION 10/09/2022 [facility] DATE CREATED AUTHOR AUTHOR'S ORGANIZ ATION 05/01/2024 [facility] DATE CREATED AUTHOR AUTHOR'S ORGANIZ ATION 07/28/2024 [facility] DATE CREATED AUTHOR AUTHOR'S ORGANIZ ATION 10/19/2024 [facility] dical Specialists EPIC DATE CREATED AUTHOR AUTHOR'S ORGANIZ ATION 11/16/2024 [facility] DATE CREATED AUTHOR AUTHOR'S ORGANIZ ATION 11/22/[address] [facility] DATE CREATED AUTHOR AUTHOR'S ORGANIZ ATION 11/23/2024 [facility] Reason for Visit (unrecogniz ed [...] 12 Lead Amber Hawley MD [address] [facility] [address] [place] [address] Phone: tel: fax: Referral ID Status Reason Start Date Expiration Date V isits Requested Visits Authorized [id number] Authorized 07/15/2024 07/15/2025 1 1 Reason Comments [...] Up In Cardiology Amber Hawley MD [address] [facility] [address] [place] [address] Phone: tel: fax: Amber Hawley MD [address] [facility] [address] [place] [address] Phone: tel: fax: Referral ID Status Reason Start Date Expiration Date V isits Requested Visits Authorized [id number] Authorized 07/15/2024 07/15/2025 1 1 Care Teams (unrecognized sec tion and content) Tipple Engineer Relationship Specialty Start Date End Date Roc Steele MD [address] [place] [address] PCP - ACO Reach 09/22/22 Roc Steele MD [address] [place] [address] PCP - General Internal Medicine 09/28/22 Tipple Engineer Relationship Specialty Start Date End Date Roc Steele MD [address] [place] [address] PCP - ACO Reach 09/22/22 Roc Steele MD [address] [place] [address] PCP - General Internal Medicine 09/28/22 Tipple Engineer Relationship Specialty Start Date End Date Roc Steele MD [address] [place] [address] PCP - ACO Reach 09/22/22 Roc Steele MD [address] [place] [address] PCP - General Internal Medicine 09/28/22 Tipple Engineer Relationship Specialty Start Date End Date Roc Steele MD [address] [place] [address] PCP - General Internal Medicine 09/28/22 Roc Steele MD [address] [place] [address] PCP - ACO Reach 08/30/23 Tipple Engineer Relationship Specialty Start Date End Date Roc Steele MD [address] [place] [address] PCP - General Internal Medicine 09/28/22 Roc Steele MD [address] [place] [address] PCP - ACO Reach 08/30/23 Tipple Engineer Relationship Specialty Start Date End Date Roc Steele MD [address] [place] [address] PCP - General Internal Medicine 09/28/22 Roc Steele MD [address] [place] [address] PCP - ACO Reach 08/30/23 Tipple Engineer Relationship Specialty Start Date End Date Roc Steele MD [address] [place] [address] PCP - General Internal Medicine 09/28/22 Roc Steele MD [address] [place] [address] PCP - ACO Reach 08/30/23 Tipple Engineer Relationship Specialty Start Date End Date Roc Steele MD [address] [place] [address] PCP - General Internal Medicine 09/28/22 Roc Steele MD [address] [place] [address] PCP - ACO Reach 08/30/23 Tipple Engineer Relationship Specialty Start Date End Date Roc Steele MD [address] [place] [address] PCP - General Internal Medicine 09/28/22 Roc Steele MD [address] [place] [address] PCP - ACO Reach 08/30/23 Tipple Engineer Relationship Specialty Start Date End Date Roc Steele MD [address] [place] [address] PCP - General Internal Medicine 09/28/22 Roc Steele MD [address] [place] [address] PCP - ACO Reach 08/30/23 Waqas Dugan DO [address] [place] [address] Referring Physician Neurology 03/07/24 Tipple Engineer Relationship Specialty Start Date End Date Roc Steele MD [address] [place] [address] PCP - General Internal Medicine 09/28/22 Roc Steele MD [address] [place] [address] PCP - ACO Reach 08/30/23 Waqas Dugan DO [address] [place] [address] Referring Physician Neurology 03/07/24 Tipple Engineer Relationship Specialty Start Date End Date Roc Steele MD [address] [place] [address] PCP - General Internal Medicine 09/28/22 Roc Steele MD [address] [place] [address] PCP - ACO Reach 08/30/23 Waqas Dugan DO [address] [place] [address] Referring Physician Neurology 03/07/24 Tipple Engineer Relationship Specialty Start Date End Date Roc Steele MD [address] [place] [address] PCP - General Internal Medicine 09/28/22 Roc Steele MD [address] [place] [address] PCP - ACO Reach 08/30/23 Waqas Dugan DO [address] [place] [address], [place] [address] Referring Physician Neurology 03/07/24 Tipple Engineer Relationship Specialty Start Date End Date Roc Steele MD [address] [place] [address] PCP - General Internal Medicine 09/28/22 Roc Steele MD [address] [place] [address] PCP - ACO Reach 08/30/23 Waqas Dugan DO [address] [place] [address] Referring Physician Neurology 03/07/24 Tipple Engineer Relationship Specialty Start Date End Date Roc Steele MD [address] [place] [address] PCP - General Internal Medicine 09/28/22 Roc Steele MD [address] [place] [address] PCP - ACO Reach 08/30/23 Tipple Engineer Relationship Specialty Start Date End Date Roc Steele MD [address] [place] [address] PCP - General Internal Medicine 09/28/22 Roc Steele MD [address] [place] [address] PCP - ACO Reach 08/30/23 Waqas Dugan DO [address] [place] [address] Referring Physician Neurology 03/07/24 Tipple Engineer Relationship Specialty Start Date End Date Roc Steele MD [address] [place] [address] PCP - General Internal Medicine 09/28/22 Roc Steele MD [address] [place] [address] PCP - ACO Reach 08/30/23 Waqas Dugan DO [address] [place] [address] Referring Physician Neurology 03/07/24 Tipple Engineer Relationship Specialty Start Date End Date Roc Steele MD [address] [place] [address] PCP - General Internal Medicine 09/28/22 Roc Steele MD [address] [place] [address] PCP - ACO Reach 08/30/23 Waqas Dugan DO [address] [place] [address] Referring Physician Neurology 03/07/24 Tipple Engineer Relationship Specialty Start Date End Date Roc Steele MD [address] [place] [address] PCP - General Internal Medicine 09/28/22 Roc Steele MD [address] [place] [address] PCP - ACO Reach 08/30/23 Waqas Dugan DO [address] [place] [address], [place] [address] Referring Physician Neurology 03/07/24 Tipple Engineer Relationship Specialty Start Date End Date Roc Steele MD [address] [place] [address] PCP - General Internal Medicine 09/28/22 Roc Steele MD [address] [place] [address] PCP - ACO Reach 08/30/23 Waqas Dugan DO [address] [place] [address] Referring Physician Neurology 03/07/24 Tipple Engineer Relationship Specialty Start Date End Date Roc Steele MD [address] [place] [address] PCP - General Internal Medicine 09/28/22 Roc Steele MD [address] [place] [address] PCP - ACO Reach 08/30/23 Waqas Dugan DO [address] [place] [address] Referring Physician Neurology 03/07/24 Tipple Engineer Relationship Specialty Start Date End Date Roc Steele MD [address] [place] [address] PCP - General Internal Medicine 09/28/22 Roc Steele MD [address] [place] [address] PCP - ACO Reach 08/30/23 Waqas Dugan DO [address] [place] [address], [place] [address] Referring Physician Neurology 03/07/24 Tipple Engineer Relationship Specialty Start Date End Date Roc Steele MD [address] [place] [address] PCP - General Internal Medicine 09/28/22 Roc Steele MD [address] [place] [address] PCP - ACO Reach 08/30/23 Waqas Dugan DO [address] [place] [address] Referring Physician Neurology 03/07/24 Raya Holt, RN Clinical Advocate Family Medicine 06/07/24 Tipple Engineer Relationship Specialty Start Date End Date Roc Steele MD [address] [place] [address] PCP - General Internal Medicine 09/28/22 Roc Steele MD [address] [place] [address] PCP - ACO Reach 08/30/23 Waqas Dugan DO [address] [place] [address] Referring Physician Neurology 03/07/24 Raya Holt, RN Clinical Advocate Family Medicine 06/07/24 Tipple Engineer Relationship Specialty Start Date End Date Roc Steele MD [address] [place] [address] PCP - General Internal Medicine 09/28/22 Roc Steele MD [address] [place] [address] PCP - ACO Reach 08/30/23 Waqas Dugan DO [address] [place] [address] Referring Physician Neurology 03/07/24 Raya Holt, RN Clinical Advocate Family Medicine 06/07/24 Tipple Engineer Relationship Specialty Start Date End Date Roc Steele MD [address] [place] [address] PCP - General Internal Medicine 09/28/22 Roc Steele MD [address] [place] [address] PCP - ACO Reach 08/30/23 Waqas Dugan DO [address] [place] [address] Referring Physician Neurology 03/07/24 Raya Holt RN Clinical Advocate Family Medicine 06/07/24 Tipple Engineer Relationship Specialty Start Date End Date Roc Steele MD [address] [place] [address] PCP - General Internal Medicine 09/28/22 Roc Steele MD [address] [place] [address] PCP - ACO Reach 08/30/23 Waqas Dugan DO [address] [place] [address], [place] [address] Referring Physician Neurology 03/07/24 Raya Holt, CARMEN Clinical Advocate Family Medicine 06/07/24 Tipple Engineer Relationship Specialty Start Date End Date Roc Steele MD [address] [place] [address] PCP - General 10/04/22 Tipple Engineer Relationship Specialty Start Date End Date Roc Steele MD [address] [place] [address] PCP - General Internal Medicine 09/28/22 Roc Steele MD [address] [place] [address] PCP - ACO Reach 08/30/23 Waqas Dugan DO [address] [place] [address], [place] [address] Referring Physician Neurology 03/07/24 Gladis Laird LPN 07/19/24 Tipple Engineer Relationship Specialty Start Date End Date Roc Steele MD [address] [place] [address] PCP - General Internal Medicine 09/28/22 Roc Steele MD [address] [place] [address] PCP - ACO Reach 08/30/23 Waqas Dugan DO [address] [place] [address] Referring Physician Neurology 03/07/24 Gladis Laird LPN 07/19/24 Tipple Engineer Relationship Specialty Start Date End Date Roc Steele MD [address] [place] [address] PCP - General Internal Medicine 09/28/22 Roc Steele MD [address] [place] [address] PCP - ACO Reach 08/30/23 Waqas Dugan DO [address] [place] [address] Referring Physician Neurology 03/07/24 Gladis Laird LPN 07/19/24 Tipple Engineer Relationship Specialty Start Date End Date Roc Steele MD [address] [place] [address] PCP - General Internal Medicine 09/28/22 Roc Steele MD [address] [place] [address] PCP - ACO Reach 08/30/23 Waqas Dugan DO [address] [place] [address] Referring Physician Neurology 03/07/24 Gladis Laird LPN 07/19/24 Tipple Engineer Relationship Specialty Start Date End Date Roc Steele MD [address] [place] [address] PCP - General Internal Medicine 09/28/22 Roc Steele MD [address] [place] [address] PCP - ACO Reach 08/30/23 Waqas Dugan DO [address] [place] [address] Referring Physician Neurology 03/07/24 Gladis Laird LPN 07/19/24 Tipple Engineer Relationship Specialty Start Date End Date Roc Steele MD [address] [place] [address] PCP - General 10/04/22 Tipple Engineer Relationship Specialty Start Date End Date Roc Steele MD [address] [place] [address] PCP - General 10/04/22 Tipple Engineer Relationship Specialty Start Date End Date Roc Steele MD [address] [place] [address] PCP - General 10/04/22 Tipple Engineer Relationship Specialty Start Date End Date Roc Steele MD [address] [place] [address] PCP - General Internal Medicine 09/28/22 Roc Steele MD [address] [place] [address] PCP - ACO Reach 08/30/23 Waqas Dugan DO [address] [place] [address] Referring Physician Neurology 03/07/24 Gladis Laird LPN 07/19/24 Tipple Engineer Relationship Specialty Start Date End Date Roc Steele MD [address] [place] [address] PCP - General Internal Medicine 09/28/22 Roc Steele MD [address] [place] [address] PCP - ACO Reach 08/30/23 Waqas Dugan DO [address] [place] [address] Referring Physician Neurology 03/07/24 Gladis Laird LPN 07/19/24 Tipple Engineer Relationship Specialty Start Date End Date Roc Steele MD [address] [place] [address] PCP - General Internal Medicine 09/28/22 Roc Steele MD [address] [place] [address] PCP - ACO Reach 08/30/23 Waqas Dugan DO [address] [place] [address], [place] [address] Referring Physician Neurology 03/07/24 Gladis Laird LPN [address] [place] [address] 07/19/24 Tipple Engineer Relationship Specialty Start Date End Date Roc Steele MD [address] [place] [address] PCP - General Internal Medicine 09/28/22 Roc Steele MD [address] [place] [address] PCP - ACO Reach 08/30/23 Waqas Dugan DO [address] [place] [address] Referring Physician Neurology 03/07/24 Gladis Laird LPN [address] [place] [address] 07/19/24 Tipple Engineer Relationship Specialty Start Date End Date Roc Steele MD [address] [place] [address] PCP - General Internal Medicine 09/28/22 Roc Steele MD [address] [place] [address] PCP - ACO Reach 08/30/23 Waqas Dugan DO [address] [place] [address] Referring Physician Neurology 03/07/24 Gladis Laird LPN [address] [place] [address] 07/19/24 Tipple Engineer Relationship Specialty Start Date End Date Roc Steele MD [address] [place], [place] [id number] PCP - General 10/04/22 FOR RECORDS PERTAINING [...] BE BASED ON THE PRIMARY CLINICAL RECORDS. [facility]. provides no warranty or guarantee of the accuracy or completeness of information in this document.
== END 2025-01-01 12:44 | disposition home or self-care (01) ==
PROVIDERS: Emergency Provider Student in an Organized Health Care Education/Training Program; PCP Internal Medicine
DX: R07.89 Other chest pain (principal); I51.7 Cardiomegaly
CPT/HCPCS: 36415; 71045; 80048; 83880; 84484; 85027; 93005; 99284

== ENCOUNTER 2025-01-23 12:35 | Outpatient (OUT) | payer MEDICARE, OTHER, SELFPAY ==
--- OUTSIDE RECORDS SUMMARY | 2025-01-23 12:53 | XMS_ITS | CCD ---
Author Organization [facility] CliniSywa Care Team Providers Care Workday Director Name Role Phone PelonTasia castillo Unavailable Unavailable Unavailable Unavailable Unavailable TRA ., [...] Primary Care Provider Roc Steele MD Unavailable [phone] Ritchie DO, Christopher Unavailable Mala Sapp Attending UnavailMala Kenney Admitting UnavailRoc Grant Primary Care Unavailable Yanet MORALES, Raya Unavailable Roc Steele MD Primary Care Provider Laird PUNCH PRESS OPERATOR HELPER, Gladis Unavailable Unavailable Ritchie DO, Christopher Unavailable Ritchie DO, Christopher Unavailable Laird PUNCH PRESS OPERATOR HELPER, Gladis Unavailable KAMILA PRIDE Attending Unavailable ALEX [...] sources) Clarithromycin; Translations: [clarithromycin] Drug Allergy Unknown [facility] Work Phone: Quinolones (antibiotic) (18 sources) moxifloxacin; Translations: [moxifloxacin] Drug Allergy Anaphylaxis, Unknown [facility] Work Phone: (20 sources) Ciprofloxacin; Translations: [ciprofloxacin] Drug Allergy 3 Unknown [facility] (20 sources) Clarithromycin; Translations: [clarithromycin] Drug Allergy 3 Unknown [facility] Repository (4 sources) moxifloxacin; Translations: [Avelox] Drug Allergy [address] [facility] Repository (20 sources) moxifloxacin; Translations: [moxifloxacin] Drug Allergy 3 Anaphylaxis, Angioedema [facility] Work Phone: (1 source) Ciprofloxacin Drug Allergy [address] [facility] Repository (1 source) Sulfonamides (Antibiotic) Drug allergy (disorder) [address] [facility] Repository (20 sources) Sulfanilamide Allergy to substance 3 [facility] (8 sources) Sulfonamides (Antibiotic); Translations: [SULFA (SULFONAMIDE ANTIBIOTICS)] Propensity to adverse reactions [address] [facility] Work Phone: Medications Current Medications Medication Drug Class(es) Dates Sig (Normalized) Sig (Original) acetaminophen 325 mg / HYDROcodone bitartrate 5 mg oral tablet (20 sources) Opioid Agonist Start: 02-29-2024 End: 11-17-2024 take 1 tablet by mouth every four hours for pain HYDROcodone-acetam inophen ([place]) 5-325 MG tablet Indications: Lumbosacral spondylosis without myelopathy Take 1 tablet by mouth every 4 (four) hours if needed for moderate pain or severe pain 180 tablet 10/18/2024 11/17/2024 Active [id number] 200 actuat albuterol 0.09 mg/actuat metered dose [...] day at the same time. 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 Ordering Physician: Daron Sanchez M.D. Date of Service: 10/01/24 Procedure(s): MR lumbar spine wo con Accession Number(s): [id number] cc: ROC STEELE ; Daron Sanchez M.D. The [place] [address] Patient Name: LUMA RIBEIRO MRN: [id number] date: 1945 Sex: F Assigned Patient Location: MRI Current Patient Location: MRI Accession/Order Number: [id number] Exam Date: 10/01/2024 14:28 Report Date: 10/01/2024 [...] Bach M.D. 10/01/2024 2:34 PM Dictation Location: [place] [address] Electronically authenticated by: [id number] Y Date: 10/01/2024 14:34 Dictated By: Srinivasa Bach M.D. Signed By: 10/01/24 1437 DD/ 1434 TD/TT: Community Organization Aide: [facility] Radiology, Radiologi MD noemy - 10/01/2024 [place] [address] Magnetic Resonance Report Signed Patient: LUMA RIBEIRO MR#: [id number] : 1945 Acct:[id number] Age/Sex: 78 / F ADM Date: 10/01/24 Loc: MRI Attending Dr: Daron Sanchez M.D. Ordering Physician: Daron Sanchez M.D. Date of Service: 10/01/24 Procedure(s): MR lumbar spine wo con Accession Number(s): [id number] cc: ROC STEELE ; Daron Sanchez M.D. [facility] [place] [address] Patient Name: LUMA RIBEIRO MRN: [facility]:[id number] date: 1945 Sex: F Assigned Patient Location: MRI Current Patient Location: MRI Accession/Order Number: [id number] Exam Date: 10/01/2024 14:28 Report Date: 10/01/2024 [...] Bach M.D. 10/01/2024 2:34 PM Dictation Location: [place] [address] Electronically authenticated by: [id number] Y Date: 10/01/2024 14:34 Dictated By: Srinivasa Bach M.D. Signed By: 10/01/24 1437 DD/ 1434 TD/TT: Community Organization Aide: [facility] Radiology Study observation (narrative) [facility] MR LUMBAR SPINE WO Jennifer crawford By: Radiologist Radiology on 10-01-2024 [facility] [employer] Work Phone: NUCLEAR STRESS TESTon 2024 NUCLEAR STRESS TEST Interpreted By: David Walls, and Jett Inman STUDY: MYOCARDIAL PERFUSION STRESS TEST WITH LEXISCAN Performing facility: [facility], [address] [place] [address], [address], [address] Provider: Amber Hawley MD, [facility] PCP: Dr. Madelyn Steele Supervising provider: David Castle MD, [facility] INDICATION: Signs/Symptoms:abn ekg, cp, dizziness, m hld. ,R42 Dizziness and giddiness,R07.89 Other chest pain,R00.2 Palpitations,E78.2 Mixed hyperlipidemia HISTORY: Gender: F; Age: 78 y/o ; Height: HT 162.6 cm cm; Weight: WT 122.018 kg kg. Abnormal EKG; High Cholesterol; HTN; Palpitations; Chest Pain; Denies smoking. COMPARISON: No comparison. ACCESSION NUMBER(S): [id number] ORDERING CLINICIAN: AMBER HAWLEY TECHNIQUE: TWO DAY [...] David Castle 09/19/2024 3:00 PM Dictation workstation: [id number] [facility] TRANSTHORACIC ECHO (TTE) COM PLETEon 09-18-2024 TRANSTHORACIC ECHO (TTE) COMPLETE [address], [address] [place] [address] TRANSTHORACIC ECHOCARDIOGRAM REPORT Patient Name: LUMA Deal Physician: [id number] David Castle MD, [facility] Study Date: 09/18/2024 Ordering Provider: [id number] AMBER HAWLEY MRN/PID: [id number] Fellow: Nurse: Date of /Age: 7 1945 Chicken Cleaner: Viry ely RDCS, RVT Gender Assigned at F Additional Staff: : Height: 162.56 cm Admit Date: Weight: 122.02 kg Admission Status: Outpatient BSA / BMI: 2.22 m2 / 46.17 Department Location: [facility]/m2 [place] Blood Pressure: 124 /86 mmHg Study Type: TRANSTHORACIC ECHO (TTE) COMPLETE Diagnosis/ICD: Supraventricular tachycardia-I47.1; Abnormal electrocardiogram [ECG] [EKG]-R94.31; Palpitations-R00.2 Indication: Edema, HTN, Hyperlipidemia, Carotid Stenosis, CARO, CKD-Stage III, Morbid Obesity CPT Codes: Echo Complete w Full Doppler-91758 Study Detail: The following Echo studies were [...] 338.04 c (more content not included)... Normal [facility] US Heart TransthoracicOrdere d By: David Castle on 09-18-2024 Aortic Valve Area by Continuity of Peak Velocity 2.[address] [facility] Work Phone: 00 Aortic Valve Area by Continuity of VTI 1.[address] [facility] Work Phone: 00 AV mn grad [address] [facility] Work Phone: AV pk grad [address] [facility] Work Phone: AV pk malinda 1.81 m/s [facility] Work Phone: LA vol index A/L 44.1 ml/m2 [facility] Work Phone: 00 LV A4C EF 42.7 [facility] Work Phone: 00 LV Biplane EF 36 % [facility] Work Phone: LV EF 63 % [facility] Work Phone: LVIDd 4.[address] [facility] Work Phone: [phone] LVOT diam [address] [facility] Work Phone: MV avg E/e' ratio 26.81 [facility] Work Phone: MV E/A ratio 0.79 [facility] Work Phone: RV free wall pk S' 15.98 cm/s [facility] Work Phone: [facility] Work Phone: US Heart Transthoracicon [facility] [address] [place] [address], [address], [place] [address] TRANSTHORACIC ECHOCARDIOGRAM REPORT Patient Name: LUMA Deal Physician: [id number] David Castle MD, [facility] Study Date: 09/18/2024 Ordering Provider: [id number] AMBER HAWLEY MRN/PID: [id number] Fellow: Nurse: Date of /Age: 7 1945 Chicken Cleaner: Viry ely RDCS, RVT Gender Assigned at F Additional Staff: : Height: 162.56 cm Admit Date: Weight: 122.02 kg Admission Status: Outpatient BSA / BMI: 2.22 m2 / 46.17 Department Location: [facility] Heart kg/m2 [place] Blood Pressure: 124 /86 mmHg Study Type: TRANSTHORACIC ECHO (TTE) COMPLETE Diagnosis/ICD: Supraventricular tachycardia-I47.1; Abnormal electrocardiogram [ECG] [EKG]-R94.31; Palpitations-R00.2 Indication: Edema, HTN, Hyperlipidemia, Carotid Stenosis, CARO, CKD-Stage III, Morbid Obesity CPT Codes: Echo Complete w Full Doppler-55974 Study Detail: The following Echo studies were [...] included)... David Mortensen M D - 09/18/[address], [address] [facility], [place] [address] TRANSTHORACIC ECHOCARDIOGRAM REPORT Patient Name: LUMA Deal Physician: [id number] David Castle MD, [facility] Study Date: 09/18/2024 Ordering Provider: [id number] AMBER HAWLEY MRN/PID: [id number] Fellow: Nurse: Date of /Age: 7 1945 Chicken Cleaner: Viry ely RDCS, RVT Gender Assigned at F Additional Staff: : Height: 162.56 cm Admit Date: Weight: 122.02 kg Admission Status: Outpatient BSA / BMI: 2.22 m2 / 46.17 Department Location: [facility]/[address] Blood Pressure: 124 /86 mmHg Study Type: TRANSTHORACIC ECHO (TTE) COMPLETE Diagnosis/ICD: Supraventricular tachycardia-I47.1; Abnormal electrocardiogram [ECG] [EKG]-R94.31; Palpitations-R00.2 Indication: Edema, HTN, Hyperlipidemia, Carotid Stenosis, CARO, CKD-Stage III, Morbid Obesity CPT Codes: Echo Complete w Full Doppler-28470 Study Detail: The following Echo studies were [...] 0.48 AORTI (more content not included)... [facility] Work Phone: LIPID PANEL, STANDARD 06-30 Cholesterol [Mass/Vol] 153 mg/dL Normal <200 [facility] Comment on above: Order Comment: COLLE CTION KIT GIVEN TO PATIENT. PATIENT ADVISED TO RETURN. Performed By: #### 7 600 #### [facility] [address], [address] [place] [address] Optical Engineering Manager: Bryce Larsen MD Cholesterol in HDL [Mass/Vol] 49 mg/dL Low > OR = 50 [facility] Comment on above: Order Comment: COLLE CTION KIT GIVEN TO PATIENT. PATIENT ADVISED TO RETURN. Performed By: #### 7 600 #### [facility] [address], [address] [place] [address] Optical Engineering Manager: Bryce Larsen MD Cholesterol in LDL [Mass/Vol] [...] LDL-C. Mike JURADO et al. MARGO. 2013;310(19): 0069-2701 (http://education.Smarter Remarketer.OberScharrer/faq/PMN346) Performed By: #### 7 600 #### [facility] [address], [address] [place] [address] Optical Engineering Manager: Bryce Larsne MD Cholesterol.total/Cho lesterol in HDL [Mass ratio] 3.1 {ratio} Normal <5.0 [facility] Comment on above: Order Comment: COLLE CTION KIT GIVEN TO PATIENT. PATIENT ADVISED TO RETURN. Performed By: #### 7 600 #### [facility] [address], [address] [place] [address] Optical Engineering Manager: Bryce Larsen MD NON HDL CHOLESTEROL 104 [...] By: #### 7 600 #### [facility] [address], [address] [place] [address] Optical Engineering Manager: Bryce Larsen MD Triglyceride [Mass/Vol] 121 mg/dL Normal <150 [facility] Comment on above: Order Comment: COLLE CTION KIT GIVEN TO PATIENT. PATIENT ADVISED TO RETURN. Performed By: #### 7 600 #### [facility] [address], [address] [place] [address] Optical Engineering Manager: Bryce Larsen MD DEXA BONE DENSITYon 07-27-19 [...] Available MM TOMOSYNTHESIS SCREENING B Ion 07-18-[address] [address] Mammography Report Signed Patient: LUMA RIBEIRO MR#: [id number] : 1945 Acct:[id number] Age/Sex: 78 / F ADM Date: 07/17/24 Loc: MAMMO Attending Dr: ROC STEELE Ordering Physician: ROC STEELE Results: Date of Service: 07/17/24 Follow Up: Procedure(s): MM tomosynthesis screening BI Accession Number(s): [id number] cc: USAMAMARIKAROC Patient Name: LUMA RIBEIRO MR#: [id number] : 1945 Exam Date: 07/17/2024 Ordering Doctor: [...] breast cancer at age 61. LOCATION: [facility] BREAST COMPOSITION: There are scattered areas [...] Signed By: 07/18/24 1620 DD/ 1619 TD/TT: Community Organization Aide: [facility] RadiologyJodieogmekhi salguero MD - 07/18/2024 The [place] [id number] Mammography Report Signed Patient: LUMA RIBEIRO MR#: [id number] : 1945 Acct:[id number] Age/Sex: 78 / F ADM Date: 07/17/24 Loc: MAMMO Attending Dr: ROC STEELE Ordering Physician: ROC STEELE Results: Date of Service: 07/17/24 Follow Up: Procedure(s): MM tomosynthesis screening BI Accession Number(s): [id number] cc: ROC STEELE Patient Name: LUMA RIBEIRO MR#: [id number] : 1945 Exam Date: 07/17/2024 Ordering Doctor: [...] breast cancer at age 61. LOCATION: [facility] BREAST COMPOSITION: There are scattered areas [...] Signed By: 07/18/24 1620 DD/ 1619 TD/TT: Community Organization Aide: [facility] Study observation (narrative) [facility] [employer] MM TOMOSYNTHESIS SCREENING B IOrdered By: Radiologist Radiology on 07-18-2024 [employer] Work Phone: ECG 12 Leadon 07-15-2024 [facility] Work Phone: [facility] Work Phone: Laboratory - Hematology and Cell countson 07-11-2024 HbA1c (Bld) [Mass fraction] 6.1 % [facility] No Panel Informationon 07-11 [facility] XR HIP 2 OR 3 VW [...] #### 1 0231, 622 #### [facility] [place] [address] Optical Engineering Manager: Bryce Larsen MD Albumin/Globulin [Mass ratio] 1.7 {ratio} Normal 1.0-2.5 [facility] Comment on above: Performed By: #### 1 230, 622 #### [facility] [place] [address] Optical Engineering Manager: Bryce Larsen MD ALP [Catalytic activity/Vol] 99 U/L Normal 37-153 [facility] Comment on above: Performed By: #### 1 230, 622 #### [facility] [place] [address] Optical Engineering Manager: Bryce Larsen MD ALT [Catalytic activity/Vol] 8 U/L Normal 6-29 [facility] Comment on above: Performed By: #### 1 230, 622 #### [facility] [place] [address] Optical Engineering Manager: Bryce Larsen MD AST [Catalytic activity/Vol] 19 U/L Normal 10-35 [facility] Comment on above: Performed By: #### 1 230, 622 #### [facility] of [place] [address] Optical Engineering Manager: Bryce Larsen MD Bilirubin [Mass/Vol] 0.6 mg/dL Normal 0.2-1.2 [facility] Comment on above: Performed By: #### 1 230, 622 #### [facility] [place] [address] Optical Engineering Manager: Bryce Larsen MD Calcium [Mass/Vol] 8.9 mg/dL Normal 8.6-10.4 [facility] Comment on above: Performed By: #### 1 230, 622 #### [facility] [place] [address] Optical Engineering Manager: Bryce Larsen MD Chloride [Moles/Vol] 104 mmol/L Normal 98-110 [facility] Comment on above: Performed By: #### 1 230, 622 #### [facility] [place] [address] Optical Engineering Manager: Bryce Larsen MD CO2 [Moles/Vol] 27 mmol/L Normal 20-32 [facility] Comment on above: Performed By: #### 1 230, 622 #### [facility] [place] [address] Optical Engineering Manager: Bryce Larsen MD Creatinine [Mass/Vol] 1.11 mg/dL High 0.60-1.[address] [facility] Comment on above: Performed By: #### 1 230, 622 #### [facility] [place] [address] Optical Engineering Manager: Bryce Larsen MD GFR/1.73 sq M.predicted among non-blacks MDRD (S/P/Bld) [Vol rate/Area] 51 mL/min/{1.73_m2} Low > OR = 60 [facility] Comment on above: Performed By: #### 1 230, 622 #### [facility] of [place] [id number] Optical Engineering Manager: Bryce Larsen MD Globulin (S) [Mass/Vol] 2.3 g/dL Normal 1.9-3.7 [facility] Comment on above: Performed By: #### 1 230, 622 #### [facility] [place] [address] Optical Engineering Manager: Bryce Larsen MD Glucose [Mass/Vol] 145 mg/dL High 65-139 [facility] Comment on above: Result Comment: Non-fasting reference interval For someone without known diabetes, a glucose value >125 mg/dL indicates that they may have diabetes and this should be confirmed with a follow-up test. Performed By: #### 1 230, 622 #### [facility] [place] [address] Optical Engineering Manager: Bryce Larsen MD Potassium [Moles/Vol] 4.2 mmol/L Normal 3.5-5.[address] [facility] Comment on above: Performed By: #### 1 230, 622 #### [facility] [place] [address] Optical Engineering Manager: Bryce Larsen MD Protein [Mass/Vol] 6.3 g/dL Normal 6.1-8.1 [facility] Comment on above: Performed By: #### 1 230, 622 #### [facility] [place] [address] Optical Engineering Manager: Bryce Larsen MD Sodium [Moles/Vol] 138 mmol/L Normal 135-146 [facility] Comment on above: Performed By: #### 1 230, 622 #### [facility] [place] [address] Optical Engineering Manager: Bryce Larsen MD Urea nitrogen [Mass/Vol] 19 mg/dL Normal 7-25 [facility] Comment on above: Performed By: #### 1 230, 622 #### [facility] [place] [address] Optical Engineering Manager: Bryce Larsen MD Urea nitrogen/Creatinine [Mass ratio] 17 mg/mg Normal - [facility] Comment on above: Performed By: #### 1 0231, 622 #### [facility] [place] [address] Optical Engineering Manager: Bryce Larsen MD MAGNESIUMon 07-04-2024 Magnesium [Mass/Vol] 2.0 mg/dL Normal 1.5-2.5 [facility] Comment on above: Order Comment: FASTI NG:NO FASTING: NO Performed By: #### 1 0231, 622 #### [facility] [address], [address] [place] [address] Optical Engineering Manager: Bryce Larsen MD B TYPE NATRIURETIC PEPTIDE ( BNP)on 06-12-2024 Natriuretic peptide B (Bld) [Mass/Vol] 108 pg/mL High <100 [facility] Comment on above: Result Comment: BNP levels increase with age in the general population with the highest values seen in individuals greater than 75 years of age. Reference: J. Am. Vladislav. Cardiol. 2002; 40:976-982. Performed By: #### 3 7386 #### [facility] [place] [address] Optical Engineering Manager: Bryce Larsen MD COMPREHENSIVE METABOLIC PANE Kit 05-23-2024 Albumin [Mass/Vol] 3.6 g/dL Normal 3.6-5.1 [facility] Comment on above: Performed By: #### 6 , 02668 #### [facility] [address], [address] [place] [address] Optical Engineering Manager: Bryce Larsen MD Albumin/Globulin [Mass ratio] 1.3 {ratio} Normal 1.0-2.5 [facility] Comment on above: Performed By: #### 6 , 79327 #### [facility] [address], [address] [place] [address] Optical Engineering Manager: Bryce Larsen MD ALP [Catalytic activity/Vol] 87 U/L Normal 37-153 [facility] Comment on above: Performed By: #### 6 22, 87739 #### [facility] of [address], [address] [place] [address] Optical Engineering Manager: Bryce Larsen MD ALT [Catalytic activity/Vol] 15 U/L Normal 6-29 [facility] Comment on above: Performed By: #### 6 22, 48854 #### [facility] [place] [address] Optical Engineering Manager: Bryce Larsen MD AST [Catalytic activity/Vol] 31 U/L Normal 10-35 [facility] Comment on above: Performed By: #### 6 22, 62426 #### [facility] [place] [address] Optical Engineering Manager: Bryce Larsen MD Bilirubin [Mass/Vol] 0.5 mg/dL Normal 0.2-1.2 [facility] Comment on above: Performed By: #### 6 , 27678 #### [facility] [place] [address] Optical Engineering Manager: Bryce Larsen MD Calcium [Mass/Vol] 9.1 mg/dL Normal 8.6-10.4 [facility] Comment on above: Performed By: #### 6 22, 59725 #### [facility] [place] [address] Optical Engineering Manager: Bryce Larsen MD Chloride [Moles/Vol] 103 mmol/L Normal 98-110 [facility] Comment on above: Performed By: #### 6 22, 67729 #### [facility] [place] [address] Optical Engineering Manager: Bryce Larsen MD CO2 [Moles/Vol] 27 mmol/L Normal 20-32 [facility] Comment on above: Performed By: #### 6 22, 37130 #### [facility] [place] [address] Optical Engineering Manager: Bryce Larsen MD Creatinine [Mass/Vol] 1.04 mg/dL High 0.60-1.[address] [facility] Comment on above: Performed By: #### 6 , 71967 #### [facility] [place] [address] Optical Engineering Manager: Bryce Larsen MD GFR/1.73 sq M.predicted among non-blacks MDRD (S/P/Bld) [Vol rate/Area] 55 mL/min/{1.73_m2} Low > OR = 60 [facility] Comment on above: Performed By: #### 6 , 70328 #### [facility] [place] [address] Optical Engineering Manager: Bryce Larsen MD Globulin (S) [Mass/Vol] 2.7 g/dL Normal 1.9-3.7 [facility] Comment on above: Performed By: #### 6 , 56362 #### [facility] [place] [address] Optical Engineering Manager: Bryce Larsen MD Glucose [Mass/Vol] 73 mg/dL Normal 65-139 [facility] Comment on above: Result Comment: Non-fasting reference interval Performed By: #### 6 22, 39592 #### [facility] [place] [address] Optical Engineering Manager: Bryce Larsen MD Potassium [Moles/Vol] 4.7 mmol/L Normal 3.5-5.[address] [facility] Comment on above: Performed By: #### 6 , 65255 #### [facility] [place] [address] Optical Engineering Manager: Bryce Larsen MD Protein [Mass/Vol] 6.3 g/dL Normal 6.1-8.1 [facility] Comment on above: Performed By: #### 6 , 84673 #### [facility] [place] [address] Optical Engineering Manager: Bryce Larsen MD Sodium [Moles/Vol] 137 mmol/L Normal 135-146 [facility] Comment on above: Performed By: #### 6 22, 30153 #### [facility] [address], [address] [place] [address] Optical Engineering Manager: Bryce Larsen MD Urea nitrogen [Mass/Vol] 15 mg/dL Normal 7-25 [facility] Comment on above: Performed By: #### 6 22, 58944 #### [facility] [address], [address] [place] [address] Optical Engineering Manager: Bryce Larsen MD Urea nitrogen/Creatinine [Mass ratio] 14 mg/mg Normal 6- [facility] Comment on above: Performed By: #### 6 22, 20619 #### [facility] [address], [address] [place] [address] Optical Engineering Manager: Bryce Larsen MD MAGNESIUMon 05-23-2024 Magnesium [Mass/Vol] 1.9 mg/dL Normal 1.5-2.5 [facility] Comment on above: Order Comment: FASTI NG:NO FASTING: NO Performed By: #### 6 22, 86060 #### [facility] [address], [address] [place] [address] Optical Engineering Manager: Bryce Larsen MD ALL BASIC METABOLIC PANELon 05-16-2024 Anion gap [Moles/Vol] 12 mmol/L [facility] Calcium [Mass/Vol] 9 mg/dL 8.5 - 10. 1 mg/dL [facility] Chloride [Moles/Vol] 98 mmol/L 98 - 10 7 mmol/L [facility] CO2 [Moles/Vol] 29.6 mmol/L 21.0 - 32.0 mmol/L [facility] Creatinine [Mass/Vol] 1.42 mg/dL High 0.55 - 1.02 mg/dL [facility] GFR/1.73 sq M.predicted CKD-EPI (S/P/Bld) [Vol rate/Area] 43 Low >=60 mL/min/1.7 3m 2 [facility] Glucose [Mass/Vol] 74 mg/dL 74 - 106 mg/dL [facility] Interpretation and review of laboratory results Abnormal [facility] Potassium [Moles/Vol] 3.6 mmol/L 3.5 - 5.1 mmol/L [facility] Sodium [Moles/Vol] 136 mmol/L 136 - 145 mmol/L [facility] EGFR-NON AF WALLISIAN 36 Low >=60 mL/min/1.7 3m 2 [facility] Urea nitrogen [Mass/Vol] 36 mg/dL High 7.0 - 18.0 mg/dL [facility] Urea nitrogen/Creatinine [Mass ratio] 25.4 mg/mg [facility] XR chest 2V*on 04-29-2024 XR chest 2V* [facility] [place] [address] [place] [address] XRay Report Signed Patient: Luma Ribeiro MR#: [id number] : 1945 Acct:[id number] Age/Sex: 78 / F ADM Date: 04/29/24 Loc: XDUCLY Room: Type: [facility] 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 RIVER GUIDE Copies to: Mala Sapp APRN Ordering Provider: [...] R Christopher M.D.04/29/2024 4:00 PM Dictation Location: [place] [address] Transcribed By: ALEXEY 04/29/24 1600 Dictated By: Jose R Christopher DO 04/29/24 1559 Signed By: 04/29/24 1600 Normal [facility] XR CHEST 2 VIEWSon 4 [...] de hand and wrist EMG 1 Extremeityon [facility] 7-8 Nerveson 03-07-2024 [facility] Established Visit (Orthopaed ic Surgery)on 10-04-2022 [...] Complaint RT shoulder Ongoing issue 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 Distal pulses and sensation are intact. Limited forward flexion to about 25 degrees lateral abduction to about 15 unable to perform any external rotation but internal he can get to the small of her back. Her exam does not allow for much of a true Neer's Shelby or Newberry's test. Diagnostics: See dictated report from today, previous outside CT scan report of the humerus reviewed, and is available in the [facility] chart. 1 Procedure: None Assessment: Chronic [...] the patient's CT scan report reviewed in [facility] chart Other 1 than the anterior [...] grammatical areas may persist related to the [facility] software (more content not included)... Normal [facility] 10-[facility]-2022 XR Shoulder 2 Views [facility] Work Phone: SHOULDER, CMPLT, MIN 2 VIEWS on 10-04-2022 SHOULDER, CMPLT, MIN 2 VIEWS Patient Name: LUMA RIBEIRO STUDY: SHOULDER, CMPLT, MIN 2 VIEWS; Right; 10/04/2022 1:49 pm INDICATION: pain M25.519: Shoulder pain. ACCESSION NUMBER(S): [id number] ORDERING CLINICIAN: TANIYA AL FINDINGS: Multiple views [...] Electronically signed by: TANIYA AL MD Normal [facility] CT HUMERUS RIGHT W/O CONTRAS [...] by Pernell Wiley on 09/12/2022 1127 Normal [facility] XR Chest 2 Views*on 09-13-19 23 XR [...] by Pernell Wiley on 09/12/2022 1101 Normal [facility] XR CHEST 2 Von 09-05-2022 XR CHEST [...] ISAEL HANSEN Date: 2022-09-05 15:[address] [facility] XR KUB 1 VIEWon 09-05-2022 XR [...] by: ISAEL HANSEN Date: 2022-09-05 15:10 Normal [facility] AMYLASEon 09-03-2022 Amylase [Catalytic activity/Vol] 34 U/L Normal 25-115 [facility] Comment on above: Performed By: #### L IPA, CMP, CMADM, BNP, GRACIELA #### [facility] [address] [place] [address] Dr. Yonny Meza BNPon 09-03-2022 Natriuretic peptide B (Bld) [Mass/Vol] 241.0 pg/mL Normal <=1,800.0 [facility] Comment on above: Performed By: #### L IPA, CMP, CMADM, BNP, GRACIELA #### [facility] [address] [place] [address] Dr. Yonny Meza CARDIAC SRINIVASA ADMITon 023 CK [Catalytic activity/Vol] 154 U/L Normal 26-192 [facility] Comment on above: Performed By: #### L IPA, CMP, CMADM, BNP, GRACIELA #### [facility] [address] [place] [address] [address] Yonny Meza CK.MB [Mass/Vol] 1.42 ng/mL Normal <=3.60 [facility] Comment on above: Performed By: #### L IPA, CMP, CMADM, BNP, GRACIELA #### [facility] [address] [place] [address] Dr. Yonny Meza HSTROP 13.9 pg/mL Normal 4.0-51.[address] [facility] Comment on above: Result Comment: CUT- OFF POINTS HAVE BEEN ESTABLISHED BASED ON THE FOURTH UNIVERSAL DEFINITIONS OF MYOCARDIAL INFARCTION. THE UPPER REFERENCE LIMIT (URL) OF TROPONIN, DEFINED THE 99TH PERCENTILE OF cTnI DISTRIBUTION IN A REFERENCE POPULATION, HAS BEEN CONFIRMED THE DECISION THRESHOLD FOR SD DIAGNOSIS. Performed By: #### L IPA, CMP, CMADM, BNP, GRACIELA #### [facility] [address] [place] [address] Dr. Yonny Meza DARION 63 ng/mL Normal 9-82 [facility] Comment on above: Performed By: #### L IPA, CMP, CMADM, BNP, GRACIELA #### [facility] [address] [place] [address] Dr. Yonny Meza CBC AUTO DIFFon 09-03-2022 BASO # 0.0 103/ul Normal 0.0-0.1 [facility] Comment on above: Performed By: #### L IPA, CMP, CMADM, BNP, GRACIELA #### [facility] [address] [place] [address] Dr. Yonny Meza Basophils/100 WBC (Bld) 0.4 % Normal 0.2-2.[address] [facility] Comment on above: Performed By: #### L IPA, CMP, CMADM, BNP, GRACIELA #### [facility] [address] [place] [address] Dr. Yonny Meza EO # 0.1 103/ul Normal 0.0-0.[address] [facility] Comment on above: Performed By: #### L IPA, CMP, CMADM, BNP, GRACIELA #### [facility] [address] [place] [address] Dr. Yonny Meza Eosinophils/100 WBC (Bld) 1.6 % Normal 0.9-7.[address] [facility] Comment on above: Performed By: #### L IPA, CMP, CMADM, BNP, GRACIELA #### [facility] [address] [place] [address] Dr. Yonny Meza Erythrocyte distribution width (RBC) [Ratio] 12.6 % Normal 11.0-15.[address] [facility] Comment on above: Performed By: #### L IPA, CMP, CMADM, BNP, GRACIELA #### [facility] [address] [place] [address] Dr. Yonny Meza Hematocrit (Bld) [Volume fraction] 38.9 % Normal 36.0-48.0 [facility] Comment on above: Performed By: #### L IPA, CMP, CMADM, BNP, GRACIELA #### [facility] [address] [place] [address] Dr. Yonny Meza Hemoglobin (Bld) [Mass/Vol] 13.0 g/dL Normal 12.0-16.[address] [facility] Comment on above: Performed By: #### L IPA, CMP, CMADM, BNP, GRACIELA #### [facility] [address] [place] [address] Dr. Yonny Meza IG # 0.02 10e3/ul Normal 0.00-0.03 [facility] Comment on above: Performed By: #### L IPA, CMP, CMADM, BNP, GRACIELA #### [facility] [address] [place] [address] Dr. Yonny Meza IG % 0.3 % Normal 0.0-0.[address] [facility] Comment on above: Performed By: #### L IPA, CMP, CMADM, BNP, GRACIELA #### [facility] [address] [place] [address] Dr. Yonny Meza LYMPH # 2.0 103/ul Normal 1.2-3.[address] [facility] Comment on above: Performed By: #### L IPA, CMP, CMADM, BNP, GRACIELA #### [facility] [address] [place] [address] Dr. Yonny Meza Lymphocytes/100 WBC (Bld) 25.3 % Normal 20.5-60.[address] [facility] Comment on above: Performed By: #### L IPA, CMP, CMADM, BNP, GRACIELA #### [facility] [address] [place] [address] Dr. Yonny Meza MANUAL DIFF REQ NO Normal [facility] [place] [facility] Comment on above: Performed By: #### L IPA, CMP, CMADM, BNP, GRACIELA #### [facility] [address] [place] [address] Dr. Yonny Meza MCH (RBC) [Entitic mass] 31.8 pg Normal 26.7-34.0 [facility] Comment on above: Performed By: #### L IPA, CMP, CMADM, BNP, GRACIELA #### [facility] [address] [place] [address] Dr. Yonny Meza MCHC (RBC) [Mass/Vol] 33.4 g/dL Normal 29.9-35.[address] [facility] Comment on above: Performed By: #### L IPA, CMP, CMADM, BNP, GRACIELA #### [facility] [address] [place] [address] Dr. Yonny Meza MCV (RBC) [Entitic vol] 95.1 fL Normal 81.0-99.[address] [facility] Comment on above: Performed By: #### L IPA, CMP, CMADM, BNP, GRACIELA #### [facility] [address] [place] [address] Dr. Yonny Meza MONO # 0.9 103/ul Critically high 0.3-0.8 [facility] [place] [facility] Comment on above: Performed By: #### L IPA, CMP, CMADM, BNP, GRACIELA #### [facility] [address] [place] [address] Dr. Yonny Meza Monocytes/100 WBC (Bld) 11.5 % Normal 1.7-12.[address] [facility] Comment on above: Performed By: #### L IPA, CMP, CMADM, BNP, GRACIELA #### [facility] [address] [place] [address] Dr. Yonny Meza NEUT # 4.8 103/ul Normal 1.4-6.[address] [facility] Comment on above: Performed By: #### L IPA, CMP, CMADM, BNP, GRACIELA #### [facility] [address] [place] [address] Dr. Yonny Meza Neutrophils/100 WBC (Bld) 60.9 % Normal 43.0-75.[address] [facility] Comment on above: Performed By: #### L IPA, CMP, CMADM, BNP, GRACIELA #### [facility] [address] [place] [address] [address] Yonny Meza Platelet mean volume (Bld) [Entitic vol] 10.1 fL Normal 9.5-13.5 [facility] Comment on above: Performed By: #### L IPA, CMP, CMADM, BNP, GRACIELA #### [facility] [address] [place] [address] Dr. Yonny Meza PLT 252 103/ul Normal 150-450 [facility] Comment on above: Performed By: #### L IPA, CMP, CMADM, BNP, GRACIELA #### [facility] [address] [place] [address] Dr. Yonny Meza RBC 4.09 106/ul Critically low 4.20-5.40 [facility] Comment on above: Performed By: #### L IPA, CMP, CMADM, BNP, GRACIELA #### [facility] [address] [place] [address] Dr. Yonny Meza WBC 7.9 103/ul Normal 4.0-11.0 [facility] Comment on above: Performed By: #### L IPA, CMP, CMADM, BNP, GRACIELA #### [facility] [address] [place] [address] ABD/PELVIS WO CONon [...] HATTIE [place] Date: 2022-09-03 01:[address] [facility] ER URINE PROFILEon 3 Bilirubin Ql (U) Negative Normal NEGATIVE [facility] Comment on above: Performed By: #### L IPA, CMP, CMADM, BNP, GRACIELA #### [facility] [address] [place], [place] [address] Dr. Yonny Meza Clarity (U) CLEAR Normal CLEAR [facility] Comment on above: Performed By: #### L IPA, CMP, CMADM, BNP, GRACIELA #### [facility] [address] [place], [place] [address] Dr. Yonny Meza Color (U) LT. YELLOW Normal YELLOW [facility] Comment on above: Performed By: #### L IPA, CMP, CMADM, BNP, GRACIELA #### [facility] [address] [place] [address] [address] Yonny PATEL A micrscopic examina tion will be performed if indicated. Normal [facility] Comment on above: Performed By: #### L IPA, CMP, CMADM, BNP, GRACIELA #### [facility] [address] [place] [address] [address] Yonny Meza Glucose Ql (U) Negative Normal NEGATIVE [facility] Comment on above: Performed By: #### L IPA, CMP, CMADM, BNP, GRACIELA #### [facility] [address] [place] [address] [address] Yonny Meza Hemoglobin Ql (U) Negative Normal NEGATIVE [place] Comment on above: Performed By: #### L IPA, CMP, CMADM, BNP, GRACIELA #### [facility] [address] [place] [address] [address] Yonny Meza Ketones Ql (U) Negative Normal NEGATIVE [facility] Comment on above: Performed By: #### L IPA, CMP, CMADM, BNP, GRACIELA #### [facility] [address] [place] [address] [address] Yonny Meza LEUKOCYTES Negative Normal NEGATIVE [facility] Comment on above: Performed By: #### L IPA, CMP, CMADM, BNP, GRACIELA #### [facility] [address] [place] [address] [address] Yonny Meza Nitrite Ql (U) Negative Normal NEGATIVE [facility] Comment on above: Performed By: #### L IPA, CMP, CMADM, BNP, GRACIELA #### [facility] [address] [place] [address] [address] Yonny Meza pH (U) 7.0 [pH] Normal 5-[address] [facility] Comment on above: Performed By: #### L IPA, CMP, CMADM, BNP, GRACIELA #### [facility] [address] [place] [address] [address] Yonny Meza SPEC GRAVITY 1.015 Normal 1.005-<=1. 025 [facility] Comment on above: Performed By: #### L IPA, CMP, CMADM, BNP, GRACIELA #### [facility] [address] [place] [address] Dr. Yonny Meza UA PROTEIN Negative Normal NEGATIVE/ TRACE [facility] Comment on above: Performed By: #### L IPA, CMP, CMADM, BNP, GRACIELA #### [facility] [address] [place] [address] Dr. Yonny Meza UR MICRO IND NOT INDICATED Normal [facility] Comment on above: Performed By: #### L IPA, CMP, CMADM, BNP, GRACIELA #### [facility] [address] [place] [address] Dr. Yonny Meza Urobilinogen Qn (U) 0.2 {Arnaud'U}/dL Normal 0.2 - 1. 0 [facility] Comment on above: Performed By: #### L IPA, CMP, CMADM, BNP, GRACIELA #### [facility] [address] [place] [address] Dr. Yonny Meza LACTATE/LACTIC ACIDon 2022 Lactate [Moles/Vol] 2.3 mmol/L Critically high 0.4-2.0 [facility] Comment on above: Performed By: #### L ACT #### [facility] [address] [place] [address] Dr. Yonny Meza Lactate [Moles/Vol] 2.2 mmol/L Critically high 0.4-2.0 [facility] Comment on above: Performed By: #### L IPA, CMP, CMADM, BNP, GRACIELA #### [facility] [address] [place] [address] Dr. Yonny Meza LIPASEon 09-03-2022 Lipase [Catalytic activity/Vol] 88.0 U/L Normal 73.0-393.0 [facility] Comment on above: Performed By: #### L IPA, CMP, CMADM, BNP, GRACIELA #### [facility] [address] [place] [address] Dr. Yonny Meza PROF 14(COMP METB)on 023 Albumin [Mass/Vol] 3.3 g/dL Critically low 3.4-5.0 [facility] Comment on above: Performed By: #### L IPA, CMP, CMADM, BNP, GRACIELA #### [facility] [address] [place] [address] Dr. Yonny Meza Albumin/Globulin [Mass ratio] 0.9 {ratio} Normal [facility] Comment on above: Performed By: #### L IPA, CMP, CMADM, BNP, GRACIELA #### [facility] [address] [place] [address] [address] Yonny Meza ALP [Catalytic activity/Vol] 122 U/L Critically high 46-116 [facility] Comment on above: Performed By: #### L IPA, CMP, CMADM, BNP, GRACIELA #### [facility] [address] [place] [address] Dr. Yonny Meza ALT [Catalytic activity/Vol] 21 U/L Normal 14-59 [facility] Comment on above: Performed By: #### L IPA, CMP, CMADM, BNP, GRACIELA #### [facility] [address] [place] [address] Dr. Yonny Meza Anion gap [Moles/Vol] 12.4 mmol/L Normal [facility] Comment on above: Performed By: #### L IPA, CMP, CMADM, BNP, GRACIELA #### [facility] [address] [place] [address] Dr. Yonny Meza AST [Catalytic activity/Vol] 24 U/L Normal 15-37 [facility] Comment on above: Performed By: #### L IPA, CMP, CMADM, BNP, GRACIELA #### [facility] [address] [place] [address] [address] Yonny Mzea Bilirubin [Mass/Vol] 0.4 mg/dL Normal 0.2-1.0 [facility] Comment on above: Performed By: #### L IPA, CMP, CMADM, BNP, GRACIELA #### [facility] [address] [place] [address] Dr. Yonny Meza Calcium [Mass/Vol] 8.7 mg/dL Normal 8.5-10.1 [facility] Comment on above: Performed By: #### L IPA, CMP, CMADM, BNP, GRACIELA #### [facility] [address] [place] [address] [address] Yonny Meza Chloride [Moles/Vol] 105 mmol/L Normal 98-107 [facility] Comment on above: Performed By: #### L IPA, CMP, CMADM, BNP, GRACIELA #### [facility] [address] [place] [address] [address] Yonny Meza CO2 [Moles/Vol] 28.0 mmol/L Normal 21.0-32.0 [facility] Comment on above: Performed By: #### L IPA, CMP, CMADM, BNP, GRACIELA #### [facility] [address] [place] [address] Dr. Yonny Meza Creatinine [Mass/Vol] 1.11 mg/dL Critically high 0.55-1.02 [facility] Comment on above: Performed By: #### L IPA, CMP, CMADM, BNP, GRACIELA #### [facility] [address] [place] [address] Dr. Yonny Meza EGFR-AF WALLISIAN 58 mL/min/1.73m2 Critically low >=60 [facility] Comment on above: Performed By: #### L IPA, CMP, CMADM, BNP, GRACIELA #### [facility] [address] [place] [address] Dr. Yonny Meza EGFR-NON AF WALLISIAN 48 mL/min/1.73m2 Critically low >=60 [facility] Comment on above: Performed By: #### L IPA, CMP, CMADM, BNP, GRACIELA #### [facility] [address] [place] [address] [address] Yonny Meza Globulin (S) [Mass/Vol] 3.7 g/dL Normal [facility] Comment on above: Performed By: #### L IPA, CMP, CMADM, BNP, GRACIELA #### [facility] [address] [place] [address] [address] Yonny Meza Glucose [Mass/Vol] 152 mg/dL Critically high 74-106 [facility] Comment on above: Performed By: #### L IPA, CMP, CMADM, BNP, GRACIELA #### [facility] [address] [place] [address] [address] Yonny Meza Potassium [Moles/Vol] 3.4 mmol/L Critically low 3.5-5.1 [facility] Comment on above: Performed By: #### L IPA, CMP, CMADM, BNP, GRACIELA #### [facility] [address] [place] [address] [address] Yonny Meza Protein [Mass/Vol] 7.0 g/dL Normal 6.4-8.2 [facility] Comment on above: Performed By: #### L IPA, CMP, CMADM, BNP, GRACIELA #### [facility] [address] [place] [address] Dr. Yonny Meza Sodium [Moles/Vol] 142 mmol/L Normal 136-145 [facility] Comment on above: Performed By: #### L IPA, CMP, CMADM, BNP, GRACIELA #### [facility] [address] [place] [address] Dr. Yonny Meza Urea nitrogen [Mass/Vol] 14.0 mg/dL Normal 7.0-18.[address] [facility] Comment on above: Performed By: #### L IPA, CMP, CMADM, BNP, GRACIELA #### [facility] [address] [place] [address] Dr. Yonny Meza Urea nitrogen/Creatinine [Mass ratio] 12.6 mg/mg Normal [facility] Comment on above: Performed By: #### L IPA, CMP, CMADM, BNP, GRACIELA #### [facility] [address] [place] [address] Dr. Yonny Meza PROTIMEon 09-03-2022 INR Coag (PPP) [Relative time] 1.05 {INR} Normal [facility] Comment on above: Performed By: #### L IPA, CMP, CMADM, BNP, GRACIELA #### [facility] [address] [place] [address] Dr. Yonny Meza INR GUIDELINES SEE BELOW Normal [facility] Comment on above: Result Comment: ASCENCION RED INR: 2.0 - 3.0 CONDITIONS NOT LISTED BELOW 2.5 - 3.5 FOR PROSTHETIC HEART VALVE REPLACEMENT 2.5 - 3.5 RECURRENT THROMBOSIS Performed By: #### L IPA, CMP, CMADM, BNP, GRACIELA #### [facility] [address] [address] [address] Yonny Meza PT Coag (PPP) [Time] 11.1 s Normal 9.0-11.6 [facility] Comment on above: Performed By: #### L IPA, CMP, CMADM, BNP, GRACIELA #### [facility] [address] [place], [place] [address] Dr. Yonny Meza PTTon 09-03-2022 aPTT Coag (Bld) [Time] 26.7 s Normal 22.3-36.2 [facility] Comment on above: Performed By: #### L IPA, CMP, CMADM, BNP, GRACIELA #### [facility] [address] [address] [address] Yonny Meza XR CHEST 1 Von [...] by: HATTIE [place] Date: 2022-09-03 00:08 Normal [facility] MAMM SCREEN 3D RON CADon 06-06-2022 MAMM SCREEN 3D RON CAD Patient: LUMA RIBEIRO Exam Date: 06/06/2022 : 1945 Gender:F Ordering : DR ROC STEELE M.D. Admission #: [id number] Family : Order #: [id number] CLICK HERE TO VIEW EXAM RADIOLOGY REPORT [...] breast cancer at age 61. LOCATION: [facility] BREAST COMPOSITION: Scattered areas fibroglandular density. [...] MD on 06/07/2022 at 08:[address] [facility] No Panel Informationon 12-16 Please click on the link to view the study images Normal -[facility] Work Phone: Radiologyon 12-03-2020 XR Pelvis and Hip - left 2 Views Normal [facility] Work Phone: MRI Humerus w/wo Contraston 11-20-2020 MRI Humerus w/wo Contrast Normal [facility] Work Phone: Otheron 02-13-2020 Interpreted by: BONIFACIO WARE 15:34MRN: [id number] Name: GEMALUMA STUDY:HIP, UNILATERAL W/PELVIS WHEN PERFORMED 2-3 VIEWS; Right;02/13/2020 1:58 pm INDICATION:pain. 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 No acute bony abnormality orperiprosthetic fracture appreciated. Electronically signed by: TASIA BIRD 10/15/20 15:34 Normal [facility] Work Phone: Complete Blood Count + Diffe rentialon 01-30-2020 Basophils (Bld) [#/Vol] 0.04 {x10E9/L} See Below [facility] Work Phone: Comment on above: Reference Range: 0.0 0 - 0.10 Basophils/100 WBC (Bld) 0.2 % 0.0 - 2.0 [facility] Work Phone: Eosinophils (Bld) [#/Vol] 0.01 {x10E9/L} See Below [facility] Work Phone: Comment on above: Reference Range: 0.0 0 - 0.40 Eosinophils/100 WBC (Bld) 0.1 % 0.0 - 6.0 [facility] Work Phone: Erythrocyte distribution width (RBC) [Ratio] 13.1 % See Below [facility] Work Phone: Comment on above: Reference Range: 11. 5 - 14.5 Hematocrit (Bld) [Volume fraction] 34.8 % below low threshold See Below [facility] Work Phone: Comment on above: Reference Range: 36. 0 - 46.0 Hemoglobin (Bld) [Mass/Vol] 11.3 g/dL below low threshold See Below [facility] Work Phone: Comment on above: Reference Range: 12. 0 - 16.0 Lymphocytes (Bld) [#/Vol] 2.21 {x10E9/L} See Below [facility] Work Phone: Comment on above: Reference Range: 0.8 0 - 3.00 Lymphocytes/100 WBC (Bld) 12.5 % See Below [facility] Work Phone: [phone] Comment on above: Reference Range: 13. 0 - 44.0 MCHC (RBC) [Mass/Vol] 32.5 g/dL See Below [facility] Work Phone: [phone] Comment on above: Reference Range: 32. 0 - 36.0 MCV (RBC) [Entitic vol] 99 fL 80 - 100 [facility] Work Phone: [phone] Monocytes (Bld) [#/Vol] 1.82 {x10E9/L} above high threshold See Below [facility] Work Phone: [phone] Comment on above: Reference Range: 0.0 5 - 0.80 Monocytes/100 WBC (Bld) 10.3 % 2.0 - 10.0 [facility] Work Phone: [phone] Neutrophils/100 WBC (Bld) 76.3 % See Below [facility] Work Phone: [phone] Comment on above: Reference Range: 40. 0 - 80.0 Platelets (Bld) [#/Vol] 234 {x10E9/L} 150 - 450 [facility] Work Phone: [phone] RBC (Bld) [#/Vol] 3.52 {x10E12/L} below low threshold See Below [facility] Work Phone: [phone] Comment on above: Reference Range: 4.0 0 - 5.20 WBC (Bld) [#/Vol] 17.7 {x10E9/L} above high threshold 4.4 - 11.3 [facility] Work Phone: [phone] Complete Blood Count + Differential 0.6 % 0.0 - 0.9 [facility] Work Phone: [phone] Comment on above: Immature Granulocyte Count (IG) includes promyelocytes, myelocytes and metamyelocytes but does not include bands. Percent differential counts (%) should be interpreted in the context of the absolute cell counts (cells/L). Complete Blood Count + Differential 13.52 {x10E9/L} above high threshold See Below [facility] [place] Work Phone: Comment on above: Reference Range: 1.6 0 - 5.50 Metabolic Panelon 01-30-2020 Anion gap [Moles/Vol] 8 mmol/L below low threshold 10 - 20 [facility] [place] Work Phone: Calcium [Mass/Vol] 8.8 mg/dL 8.6 - 10.[address] [facility] [place] Work Phone: [phone] Chloride [Moles/Vol] 101 mmol/L 98 - 107 [facility] [place] Work Phone: [phone] CO2 [Moles/Vol] 32 mmol/L 21 - 32 [facility] [place] Work Phone: Creatinine [Mass/Vol] 1.00 mg/dL See Below [facility] [place] Work Phone: [phone] Comment on above: Reference Range: 0.5 0 - 1.05 Glucose [Mass/Vol] 128 mg/dL above high threshold 74 - 99 [facility] [place] Work Phone: [phone] Potassium [Moles/Vol] 4.2 mmol/L 3.5 - 5.3 [facility] [place] Work Phone: [phone] Sodium [Moles/Vol] 137 mmol/L 136 - 145 -[facility] [place] Work Phone: [phone] Urea nitrogen [Mass/Vol] 14 mg/dL 6 - 23 [facility] [place] Work Phone: [phone] Otheron 01-30-2020 65 {mL/min/1.73m2} >[address] [facility] [place] Work Phone: [phone] Comment on above: CALCULATIONS OF TONE MATED GFR ARE PERFORMED USING THE MDRD STUDY EQUATION FOR THE IDMS-TRACEABLE CREATININE METHODS. CLIN CHEM 2007;53:766-72 54 {mL/min/1.73m2} Abnormal >60 [facility] Work Phone: Otheron 01-29-2020 Interpreted by: FBIUVR44/01/20 15:21MRN: [id number] Name: LUMA RIBEIRO STUDY:HIP, UNILATERAL W/PELVIS WHEN PERFORMED 2-3 VIEWS; 01/29/2020 12:25 pm INDICATION:s/p right ROSSANA. COMPARISON:01/16/2020 ORDERING CLINICIAN:TASIA BIRD FINDINGS:Pelvis and right hip, three views Interval right total hip arthroplasty noted without periprostheticfracture or lucency. There is no dislocation. IMPRESSION:Right total hip arthroplasty without immediate complicationsElectronically signed by: RAJIV 01/30/20 15:21 Normal [facility] Work Phone: XR Pelvis 1 or 2 views Please click on the link to view the study images Normal [facility] Work Phone: Coronavirus 2019 RNA by PCR, Screening Asymptomticon 01-27-2020 Coronavirus 2019 RNA by PCR, Screening Asymptomtic NOT DETECTED See Below [facility] Work Phone: Comment on above: [...] make patient management decisions.Fact sheet for providers: https://www.fda.gov/media/142949/downloadFact sheet for patients: https://www.fda.gov/media/372766/downloadThis test has received FDA Emergency Use Authorization (EUA) and has been verified by [facility] ([facility]). This test is only authorized for the duration of time that circumstances exist to justify the authorization of the emergency use of in vitro diagnostic tests for the detection of SARS-CoV-2 virus and/or diagnosis of COVID-19 infection under section 564(b)(1) of the Act, 21 U.S.C. 360bbb-3(b)(1), unless the authorization is terminated or revoked sooner. [facility] is certified under CLIA-88 as qualified to perform high complexity testing. Testing is performed in the [facility] laboratories located at [address] [place] [address]. Activated Partial Thrombopla stin Timeon 01-20-2020 aPTT Coag (PPP) [Time] 29 {sec} 25 - 35 [facility] Work Phone: Comment on above: THE APTT IS NO LONGE R USED FOR MONITORING UNFRACTIONATED HEPARIN THERAPY. FOR MONITORING HEPARIN THERAPY, USE THE HEPARIN ASSAY. Complete Blood Count + Diffe rentialon 01-20-2020 Basophils (Bld) [#/Vol] 0.04 {x10E9/L} See Below [facility] Work Phone: Comment on above: Reference Range: 0.0 0 - 0.10 Basophils/100 WBC (Bld) 0.5 % 0.0 - 2.0 [facility] Work Phone: Eosinophils (Bld) [#/Vol] 0.09 {x10E9/L} See Below [facility] Work Phone: Comment on above: Reference Range: 0.0 0 - 0.40 Eosinophils/100 WBC (Bld) 1.0 % 0.0 - 6.0 [facility] Work Phone: [phone] Erythrocyte distribution width (RBC) [Ratio] 12.9 % See Below [facility] Work Phone: Comment on above: Reference Range: 11. 5 - 14.5 Hematocrit (Bld) [Volume fraction] 44.6 % See Below [facility] [place] [facility] Work Phone: Comment on above: Reference Range: 36. 0 - 46.0 Hemoglobin (Bld) [Mass/Vol] 14.5 g/dL See Below [facility] [place] [facility] [place] Work Phone: [phone] Comment on above: Reference Range: 12. 0 - 16.0 Lymphocytes (Bld) [#/Vol] 3.41 {x10E9/L} above high threshold See Below [facility] [place] Work Phone: [phone] Comment on above: Reference Range: 0.8 0 - 3.00 Lymphocytes/100 WBC (Bld) 38.4 % See Below [facility] Work Phone: Comment on above: Reference Range: 13. 0 - 44.0 MCHC (RBC) [Mass/Vol] 32.5 g/dL See Below [facility] [place] Work Phone: [phone] Comment on above: Reference Range: 32. 0 - 36.0 MCV (RBC) [Entitic vol] 100 fL 80 - 100 [facility] Work Phone: [phone] Monocytes (Bld) [#/Vol] 0.81 {x10E9/L} above high threshold See Below [facility] [place] Work Phone: [phone] Comment on above: Reference Range: 0.0 5 - 0.80 Monocytes/100 WBC (Bld) 9.1 % 2.0 - 10.0 [facility] [place] Work Phone: [phone] (Bld) [#/Vol] 4.49 {x10E9/L} See Below [facility] [place] Work Phone: [phone] Comment on above: Reference Range: 1.6 0 - 5.50 Neutrophils/100 WBC (Bld) 50.7 % See Below [facility] Work Phone: Comment on above: Reference Range: 40. 0 - 80.0 Platelets (Bld) [#/Vol] 261 {x10E9/L} 150 - 450 [facility] Work Phone: [phone] RBC (Bld) [#/Vol] 4.48 {x10E12/L} See Below [facility] Work Phone: [phone] Comment on above: Reference Range: 4.0 0 - 5.20 WBC (Bld) [#/Vol] 8.9 {x10E9/L} 4.4 - 11.3 [facility] Work Phone: [phone] Complete Blood Count + Differential 0.3 % 0.0 - 0.9 [facility] Work Phone: [phone] Comment on above: Immature Granulocyte Count (IG) includes promyelocytes, myelocytes and metamyelocytes but does not include bands. Percent differential counts (%) should be interpreted in the context of the absolute cell counts (cells/L). Fructosamine, Serumon 2019 Fructosamine [Moles/Vol] 265 umol/L 0-285 [facility] Work Phone: Comment on above: Published reference interval for apparently healthy subjectsbetween age 20 and 60 is 205 - 285 umol/L and in a poorlycontrolled diabetic population is 228 - 563 umol/L with amean of 396 umol/L. Hematologyon 01-20-2020 INR Coag (PPP) [Relative time] 1.1 {INR} 0.9 - 1.1 [facility] Work Phone: [phone] PT Coag (PPP) [Time] 13.0 {sec} See Below [facility] Work Phone: [phone] Comment on above: Reference Range: 10. 1 [...] [facility] [place] Work Phone: [phone] CO2 [Moles/Vol] 32 mmol/L 21 - 32 [facility] [place] Work Phone: Creatinine [Mass/Vol] 1.01 mg/dL See Below - [facility] [place] Work Phone: Comment on above: Reference Range: 0.5 0 - 1.05 Glucose [Mass/Vol] 88 mg/dL 74 - [address] [facility] [place] Work Phone: Potassium [Moles/Vol] 3.9 mmol/L 3.5 - 5.3 - [facility] [place] Work Phone: Protein [Mass/Vol] 7.6 g/dL 6.4 - 8.[address] [facility] [place] Work Phone: Sodium [Moles/Vol] 142 mmol/L 136 - [address] [facility] [place] Work Phone: Urea nitrogen [Mass/Vol] 15 mg/dL 6 - 23 [facility] [place] Work Phone: Otheron 01-20-2020 100 1 -[facility] [place] Work Phone: [phone] [facility] [place] Work Phone: [phone] 1 [facility] [place] Work Phone: [phone] 1 [facility] [place] Work Phone: [phone] [facility] [place] Work Phone: [phone] 1 [facility] [place] Work Phone: [phone] Sinus rhythm with occasional premature ventricular complexes [facility] [place] Work Phone: [phone] 1 [facility] [place] Work Phone: [phone] [email or web address] 1:[email or web address]/ [email or web address]?Ret rieveTestByDateTime?Patient UG=[id number]&Date= 0&Time=14%3a54%3a12%3a00&Te stType=ECG&Site=11&OutputTy pe=PDF&Ext=PDF -[facility] [place] Work Phone: [phone] 1 [facility] [place] Work Phone: [phone] 1 [facility] [place] Work Phone: [phone] 1 [facility] [place] Work Phone: [phone] 1 [facility] [place] Work Phone: [phone] 1 [facility] [place] Work Phone: [phone] 1 [facility] [place] Work Phone: [phone] Albumin BCP dye [Mass/Vol] 4.4 g/dL 3.4 - 5.0 [facility] [place] Work Phone: [phone] ALT With P-5'-P [Catalytic activity/Vol] 16 U/L 7 - 45 [facility] [place] Work Phone: Comment on above: Patients treated wit h Sulfasalazine may generate falsely decreased results for ALT. AST With P-5'-P [Catalytic activity/Vol] 23 U/L 9 - 39 [facility] [employer] Work Phone: 65 {mL/min/1.73m2} >[address] [facility] [employer] Work Phone: Comment on above: CALCULATIONS OF TONE MATED GFR ARE PERFORMED USING THE MDRD STUDY EQUATION FOR THE IDMS-TRACEABLE CREATININE METHODS. CLIN CHEM 2007;53:766-72 54 {mL/min/1.73m2} Abnormal >[address] [facility] [employer] Phone: Urinalysison 01-20-2020 Appearance (U) HAZY CLEAR [facility] [employer] Phone: Color (U) YELLOW See Below -[facility] [place] [employer] Work Phone: [phone] Comment on above: Reference Range: STR AW,YELLOW Glucose Ql (U) Negative NEGATIVE [facility] [employer] Work Phone: [phone] Ketones Ql (U) Negative NEGATIVE [facility] [employer] Phone: [phone] Leukocyte esterase Test strip Ql (U) Negative NEGATIVE -[place] [facility] [employer] Phone: pH (U) 7.0 [pH] 5.0 - 8.0 -[facility] [employer] Work Phone: [phone] Protein (U) [Mass/Vol] Negative NEGATIVE -[facility] [place] [employer] Work Phone: [phone] RBC (U) [#/Vol] Negative NEGATIVE [facility] [employer] Work Phone: [phone] Specific gravity (U) [Rel density] 1.019 See Below [facility] [place] [employer] Phone: [phone] Comment on above: Reference Range: 1.0 05 - 1.035 Urinalysis Negative NEGATIVE [facility] Work Phone: Urinalysis 2.0 mg/dL above high threshold 0.0 - 1.9 [facility] Work Phone: Comment on above: [...] Otheron 01-16-2020 Interpreted by: AGNES ALVARADO01/16/20 13:42MRN: [id number] Name: LUMA RIBEIRO STUDY:HIP, UNILATERAL W/PELVIS WHEN PERFORMED 2-3 VIEWS; Right; 01/16/20201:39 pm INDICATION:pain. ORDERING CLINICIAN:HARSHAL ALVARADO FINDINGS:AP lateral right hip x-ray shows end-stage xydxcnoblkhwxywckr-hu-pjgd arthrosis noted. 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 Electronically signed by: HARSHAL ALVARADO 01/16/20 13:42 Normal [facility] Work Phone: Vital Signs Date Time Vital Sign Value Performing Clinician Facility 2024 15:00-0400 Diastolic blood pressure 90 mm[Hg] Amber Hawley MD Work Phone: [facility] 2024 15:00-0400 Systolic blood pressure 130 mm[Hg] Amber Hawley MD Work Phone: [facility] 2024 14:11-0400 Body height 162.6 cm Amber Hawley MD Work Phone: [facility] 2024 14:11-0400 Body mass index (BMI) [Ratio] 44.97 kg/m2 Amber Hawley MD Work Phone: [facility] 2024 14:11-0400 Body weight 118.84 kg Amber Hawley MD Work Phone: [facility] 2024 14:11-0400 Heart rate 72 /min Amber Hawley MD Work Phone: [facility] 10-16-2024 11:33-0400 Body height 157.5 cm Kamila Pride [employer] Work Phone: [facility] 10-16-2024 11:33-0400 Body mass index (BMI) [Ratio] 48.47 kg/m2 Kamila Bigg [employer] Work Phone: [facility] 10-16-2024 11:33-0400 Body weight 120.2 kg Kamila Espitiavely [employer] Work Phone: [facility] 10-16-2024 11:33-0400 Diastolic blood pressure 101 mm[Hg] Kamila Bigg [employer] Work Phone: [facility] 10-16-2024 11:33-0400 Heart rate 77 /min Kamila Bigg [employer] Work Phone: [facility] 10-16-2024 11:33-0400 Respiratory rate 17 /min Kamila Bigg [employer] Work Phone: [facility] 10-16-2024 11:33-0400 SaO2% (BldA) [Mass fraction] 96 % Kamila Espitiavely [employer] Work Phone: [facility] 10-16-2024 11:33-0400 Systolic blood pressure 182 mm[Hg] Kamila Bigg [employer] Work Phone: [facility] 10-10-2024 15:03-0400 Body height 157.5 cm Alex Alfredo DPM Work Phone: [facility] 10-10-2024 15:03-0400 Body mass index (BMI) [Ratio] 49.02 kg/m2 Alex Alfredo DPM Work Phone: [facility] 10-10-2024 15:03-0400 Body weight 121.56 kg Alex Alfredo DPM Work Phone: [facility] 10-10-2024 15:03-0400 Respiratory rate 18 /min Alex Alfredo DPM Work Phone: [facility] 09-18-2024 11:00-0400 Body height 162.[address] 09-18-2024 11:00-0400 Body mass index (BMI) [Ratio] 46.17 kg/m2 [address] 09-18-2024 11:00-0400 Body weight 122.[address] 09-18-2024 11:00-0400 Diastolic blood pressure 86 mm[Hg] [address] 09-18-2024 11:00-0400 Systolic blood pressure 124 mm[Hg] [address] 09-18-2024 10:44-0400 Diastolic blood pressure 78 mm[Hg] [address] 09-18-2024 10:44-0400 Heart rate 67 /min [address] 09-18-2024 10:44-0400 Systolic blood pressure 122 mm[Hg] [address] 08-19-2024 11:24-0400 Body height 157.5 cm Roc Steele MD Work Phone: [facility] 08-19-2024 11:24-0400 Body mass index (BMI) [Ratio] 49.02 kg/m2 Roc Steele MD Work Phone: [facility] 08-19-2024 11:24-0400 Body weight 121.56 kg Roc Steele MD Work Phone: [facility] 08-19-2024 11:24-0400 Diastolic blood pressure 86 mm[Hg] Roc Steele MD Work Phone: [facility] 08-19-2024 11:24-0400 Heart rate 89 /min Roc Steele MD Work Phone: [facility] 08-19-2024 11:24-0400 SaO2% (BldA) [Mass fraction] 96 % Roc Steele MD Work Phone: [facility] 08-19-2024 11:24-0400 Systolic blood pressure 138 mm[Hg] Roc Steele MD Work Phone: [facility] 08-01-2024 14:45-0400 Body height 157.5 cm Alex Alfredo DPM Work Phone: [facility] 08-01-2024 14:45-0400 Body mass index (BMI) [Ratio] 48.65 kg/m2 Alex Alfredo DPM Work Phone: [facility] 08-01-2024 14:45-0400 Body weight 120.66 kg Alex Alfredo DPM Work Phone: [facility] 08-01-2024 14:45-0400 Respiratory rate 16 /min Alex Alfredo DPM Work Phone: [facility] 08-01-2024 13:31-0400 Body height 157.5 cm Kamila Pride [employer] Work Phone: [facility] 08-01-2024 13:31-0400 Body mass index (BMI) [Ratio] 48.73 kg/m2 Kamila Goodwater [employer] Work Phone: [facility] 08-01-2024 13:31-0400 Body weight 120.84 kg Kamila Bigg [employer] Work Phone: [facility] 08-01-2024 13:31-0400 Diastolic blood pressure 82 mm[Hg] Kamila Goodwater [employer] Work Phone: [facility] 08-01-2024 13:31-0400 Heart rate 88 /min Kamila Bigg [employer] Work Phone: [facility] 08-01-2024 13:31-0400 Respiratory rate 17 /min Kamila Bigg [employer] Work Phone: [facility] 08-01-2024 13:31-0400 SaO2% (BldA) [Mass fraction] 99 % Kamila Bigg [employer] Work Phone: [facility] 08-01-2024 13:31-0400 Systolic blood pressure 134 mm[Hg] Kamila Pride [employer] Work Phone: [facility] 07-15-2024 11:25-0400 Body height 162.6 cm Amber Hawley MD Work Phone: [facility] 07-15-2024 11:25-0400 Body mass index (BMI) [Ratio] 46.17 kg/m2 Amber Hawley MD Work Phone: [facility] 07-15-2024 11:25-0400 Body weight 122.02 kg Amber Hawley MD Work Phone: [facility] 07-15-2024 11:25-0400 Diastolic blood pressure 88 mm[Hg] Amber Hawley MD Work Phone: [facility] 07-15-2024 11:25-0400 Heart rate 93 /min Amber Hawley MD Work Phone: [facility] 07-15-2024 11:25-0400 Systolic blood pressure 128 mm[Hg] Amber Hawley MD Work Phone: [facility] 07-11-2024 12:59-0400 Body height 157.5 cm Kamila Pride [employer] Work Phone: [facility] 07-11-2024 12:59-0400 Body mass index (BMI) [Ratio] 49.93 kg/m2 Kamila Pride [employer] Work Phone: [facility] 07-11-2024 12:59-0400 Body weight 123.83 kg Kamila Pride [employer] Work Phone: [facility] 07-11-2024 12:59-0400 Diastolic blood pressure 80 mm[Hg] Kamila Pride [employer] Work Phone: [facility] 07-11-2024 12:59-0400 Heart rate 87 /min Kamila Pride [employer] Work Phone: [facility] 07-11-2024 12:59-0400 SaO2% (BldA) [Mass fraction] 97 % Kamila Bigg [employer] Work Phone: [facility] 07-11-2024 12:59-0400 Systolic blood pressure 130 mm[Hg] Kamila Goodwater [employer] Work Phone: [facility] 07-03-2024 11:31-0500 Body height 157.5 cm Kamila Bigg [employer] Work Phone: [facility] 07-03-2024 11:31-0500 Body mass index (BMI) [Ratio] 50.22 kg/m2 Kamila Goodwater [employer] Work Phone: [facility] 07-03-2024 11:31-0500 Body weight 124.56 kg Kamila Bigg [employer] Work Phone: [facility] 07-03-2024 11:31-0500 Diastolic blood pressure 82 mm[Hg] Kamila Goodwater [employer] Work Phone: [facility] 07-03-2024 11:31-0500 Heart rate 74 /min Kamila Goodwater [employer] Work Phone: [facility] 07-03-2024 11:31-0500 Respiratory rate 17 /min Kamila Goodwater [employer] Work Phone: [facility] 07-03-2024 11:31-0500 SaO2% (BldA) [Mass fraction] 94 % Kamila Goodwater [employer] Work Phone: [facility] 07-03-2024 11:31-0500 Systolic blood pressure 136 mm[Hg] Kamila Goodwater [employer] Work Phone: [facility] 06-11-2024 11:07-0500 Body height 157.5 cm Kamila Bigg [employer] Work Phone: [facility] 06-11-2024 11:07-0500 Body mass index (BMI) [Ratio] 49.2 kg/m2 Kamila Bigg [employer] Work Phone: [facility] 06-11-2024 11:07-0500 Body weight 122.02 kg Kamila Goodwater [employer] Work Phone: [facility] 06-11-2024 11:07-0500 Diastolic blood pressure 78 mm[Hg] Kamila Pride [employer] Work Phone: [facility] 06-11-2024 11:07-0500 Heart rate 76 /min Kamila Pride [employer] Work Phone: [facility] 06-11-2024 11:07-0500 Respiratory rate 17 /min Kamila Pride [employer] Work Phone: [facility] 06-11-2024 11:07-0500 SaO2% (BldA) [Mass fraction] 99 % Kamila Pride [employer] Work Phone: [facility] 06-11-2024 11:07-0500 Systolic blood pressure 134 mm[Hg] Kamila Pride [employer] Work Phone: [facility] 05-23-2024 14:37-0500 Body height 157.5 cm Alex Alfredo DPM Work Phone: [facility] 05-23-2024 14:37-0500 Body mass index (BMI) [Ratio] 50.3 kg/m2 Alex Alfredo DPM Work Phone: [facility] 05-23-2024 14:37-0500 Body weight 124.74 kg Alex Alfredo DPM Work Phone: [facility] 05-23-2024 14:37-0500 Respiratory rate 18 /min Alex Alfredo DPM Work Phone: [facility] 05-22-2024 10:11-0500 Body height 157.5 cm Kamila Pride [employer] Work Phone: [facility] 05-22-2024 10:11-0500 Body mass index (BMI) [Ratio] 50.33 kg/m2 Kamila Pride [employer] Work Phone: [facility] 05-22-2024 10:11-0500 Body weight 124.83 kg Kamila Goodwater [employer] Work Phone: [facility] 05-22-2024 10:11-0500 Diastolic blood pressure 80 mm[Hg] Kamila Bigg [employer] Work Phone: [facility] 05-22-2024 10:11-0500 Heart rate 77 /min Kamila Bigg [employer] Work Phone: [facility] 05-22-2024 10:11-0500 Respiratory rate 18 /min Kamila Goodwater [employer] Work Phone: [facility] 05-22-2024 10:11-0500 SaO2% (BldA) [Mass fraction] 99 % Kamila Goodwater [employer] Work Phone: [facility] 05-22-2024 10:11-0500 Systolic blood pressure 128 mm[Hg] Kamila Goodwater [employer] Work Phone: [facility] 05-15-2024 11:32-0500 Body height 157.5 cm Kamila Goodwater [employer] Work Phone: [facility] 05-15-2024 11:32-0500 Body mass index (BMI) [Ratio] 48.54 kg/m2 Kamila Bigg [employer] Work Phone: [facility] 05-15-2024 11:32-0500 Body weight 120.39 kg Kamila Bigg [employer] Work Phone: [facility] 05-15-2024 11:32-0500 Diastolic blood pressure 76 mm[Hg] Kamila Goodwater [employer] Work Phone: [facility] 05-15-2024 11:32-0500 Heart rate 97 /min Kamila Goodwater [employer] Work Phone: [facility] 05-15-2024 11:32-0500 Respiratory rate 18 /min Kamila Goodwater [employer] Work Phone: [facility] 05-15-2024 11:32-0500 SaO2% (BldA) [Mass fraction] 98 % Kamila Bigg [employer] Work Phone: [facility] 05-15-2024 11:32-0500 Systolic blood pressure 126 mm[Hg] Kamila Goodwater [employer] Work Phone: [facility] 05-07-2024 10:53-0500 Body height 157.5 cm Kamila Bigg [employer] Work Phone: [facility] [facility] 05-07-2024 10:53-0500 Body mass index (BMI) [Ratio] 48.87 kg/m2 Kamila Bigg [employer] Work Phone: [facility] 05-07-2024 10:53-0500 Body weight 121.2 kg Kamila Goodwater [employer] Work Phone: [facility] 05-07-2024 10:53-0500 Diastolic blood pressure 82 mm[Hg] Kamila Goodwater [employer] Work Phone: [facility] 05-07-2024 10:53-0500 Heart rate 88 /min Kamila Bigg [employer] Work Phone: [facility] 05-07-2024 10:53-0500 Respiratory rate 18 /min Kamila Bigg [employer] Work Phone: [facility] 05-07-2024 10:53-0500 SaO2% (BldA) [Mass fraction] 95 % Kamila Bigg [employer] Work Phone: [facility] 05-07-2024 10:53-0500 Systolic blood pressure 130 mm[Hg] Kamila Goodwater [employer] Work Phone: [facility] 04-03-2024 08:32-0500 Body height 157.5 cm Kmaila Bigg [employer] Work Phone: [facility] 04-03-2024 08:32-0500 Body mass index (BMI) [Ratio] 49.6 kg/m2 Kamila Bigg [employer] Work Phone: [facility] 04-03-2024 08:32-0500 Body weight 123.02 kg Kamila Goodwater [employer] Work Phone: [facility] 04-03-2024 08:32-0500 Diastolic blood pressure 80 mm[Hg] Kamila Goodwater [employer] Work Phone: [facility] 04-03-2024 08:32-0500 Heart rate 74 /min Kamila Goodwater [employer] Work Phone: [facility] 04-03-2024 08:32-0500 Respiratory rate 17 /min Kamila Bigg [employer] Work Phone: [facility] 04-03-2024 08:32-0500 SaO2% (BldA) [Mass fraction] 98 % Kamila Bigg [employer] Work Phone: [facility] 04-03-2024 08:32-0500 Systolic blood pressure 126 mm[Hg] Kamila Bigg [employer] Work Phone: [facility] 03-05-2024 11:19-0500 Body height 157.5 cm Kamila Goodwater [employer] Work Phone: [facility] 03-05-2024 11:19-0500 Body mass index (BMI) [Ratio] 50.85 kg/m2 Kamila Bigg [employer] Work Phone: [facility] 03-05-2024 11:19-0500 Body weight 126.1 kg Kamila Bigg [employer] Work Phone: [facility] 03-05-2024 11:19-0500 Diastolic blood pressure 76 mm[Hg] Kamila Goodwater [employer] Work Phone: [facility] 03-05-2024 11:19-0500 Heart rate 102 /min Kamila Bigg [employer] Work Phone: [facility] 03-05-2024 11:19-0500 SaO2% (BldA) [Mass fraction] 98 % Kamila Bigg [employer] Work Phone: [facility] 03-05-2024 11:19-0500 Systolic blood pressure 134 mm[Hg] Kamila Bigg [employer] Work Phone: [facility] 02-22-2024 14:09-0400 Body height 157.5 cm Alex Alfredo DPM Work Phone: [facility] 02-22-2024 14:09-0400 Body mass index (BMI) [Ratio] 50.85 kg/m2 Alex Alfredo DPM Work Phone: [facility] 02-22-2024 14:09-0400 Body weight 126.1 kg Alex Alfredo DPM Work Phone: [facility] 02-22-2024 14:09-0400 Diastolic blood pressure 80 mm[Hg] Alex Brown DPM Work Phone: [facility] 02-22-2024 14:09-0400 Heart rate 82 /min Alex Brown DPM Work Phone: [facility] 02-22-2024 14:09-0400 Systolic blood pressure 126 mm[Hg] Alex Brown DPM Work Phone: [facility] 06-15-2023 14:42-0500 Body height 157.5 cm Alex Brown DPM Work Phone: [facility] 06-15-2023 14:42-0500 Body mass index (BMI) [Ratio] 50.48 kg/m2 Alex Brown DPM Work Phone: [facility] 06-15-2023 14:42-0500 Body weight 125.19 kg Alex Brown DPM Work Phone: [facility] 06-15-2023 14:42-0500 Diastolic blood pressure 82 mm[Hg] Alex Brown DPM Work Phone: [facility] 06-15-2023 14:42-0500 Heart rate 84 /min Alex Brown DPM Work Phone: [facility] 06-15-2023 14:42-0500 Systolic blood pressure 133 mm[Hg] Alex Brown DPM Work Phone: [facility] 06-01-2023 15:33-0500 Body height 157.5 cm Alex Brown DPM Work Phone: [facility] 06-01-2023 15:33-0500 Body mass index (BMI) [Ratio] 50.48 kg/m2 Alex Brown DPM Work Phone: [facility] 06-01-2023 15:33-0500 Body weight 125.19 kg Alex Alfredo DPM Work Phone: [facility] 06-01-2023 15:33-0500 Diastolic blood pressure 80 mm[Hg] Alex Alfredo DPM Work Phone: [facility] 06-01-2023 15:33-0500 Heart rate 79 /min Alex Alfredo DPM Work Phone: [facility] 06-01-2023 15:33-0500 Systolic blood pressure 130 mm[Hg] Alex Alfredo DPM Work Phone: [facility] 01-16-2020 15:36-0400 BMI (Body Mass Index) 46.35 kg/m2 Tasia Pelon [facility] [place] Work Phone: 01-16-2020 15:36-0400 Body weight 122.47 kg Tasia [facility] [place] Work Phone: 01-16-2020 15:36-0400 BSA (Body Surface Area) 2.22 m2 Tasia [facility] [place] Work Phone: 01-16-2020 15:36-0400 Height 162.56 cm Tasia [facility] [place] Work Phone: Encounters Encounter Date Encounter Type Care Provider Facility Start: 2024 End: 2024 Office outpatient visit 25 minutes Amber Hawley MD Work Phone: [facility] Comment on above: Encounter to discuss test results (Primary Dx); Uses roller walker; Palpitations; Mixed hyperlipidemia; Chest discomfort; CARO on CPAP; Paroxysmal supraventricular tachycardia; Never smoked cigarettes; Body mass index (BMI) 40.0-44.9, adult (Multi) Start: 2024 End: [address] [facility] Start: 11-04-2024 End: 11-04-2024 ambulatory Daron Sanchez MD Facility:[facility] Start: 10-16-2024 End: 10-16-2024 Bamboo flowsheet Kamila Pride [employer] Work Phone: [facility] Start: 10-16-2024 End: 10-16-2024 Bamboo flowsheet Kamila Pride [employer] Work Phone: [facility] Start: 10-16-2024 End: 10-16-2024 Office outpatient visit 15 minutes Kamila Pride [employer] Work Phone: [facility] Comment on above: Acute low back pain without sciatica, unspecified back pain laterality (Primary Dx) Start: 10-16-2024 End: 10-18-2024 Refjavier Steele MD Work Phone: [facility] Comment on above: 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 Start: 10-14-2024 End: 10-14-2024 ambulatory Daron Sanchez MD Facility:[facility] Start: 10-10-2024 End: 10-10-2024 Patient encounter [...] Unsolicited Start: 09-19-2024 End: 09-19-[address] [facility] Start: 09-18-2024 End: 09-18-2024 Subsequent hospital visit by physician Jessica Dobbins Admin Room 1 [facility] Comment on above: Lightheadedness; Chest discomfort; Palpitations; Mixed hyperlipidemia Paroxysmal supravent ricular tachycardia; Abnormal EKG; Palpitations Start: 09-18-2024 End: 09-18-2024 ambulatory [facility] Start: 09-16-2024 End: 09-16-2024 ambulatory Daron Sanchez MD Facility: [facility] Start: 09-10-2024 End: 09-11-2024 Refill Kamila Pride [employer] Work Phone: [facility] Comment on [...] 08-01-2024 End: 08-01-2024 Bamboo flowsheet Kamila Pride [employer] Work Phone: [facility] Start: 08-01-2024 End: 08-01-2024 Bamboo flowsheet Kamila Pride [employer] Work Phone: [facility] Start: 08-01-2024 End: 08-01-2024 Office outpatient visit 25 minutes Kamila Pride [employer] Work Phone: [facility] Comment on above: SOB (shortness of br eath) (Primary Dx); Chronic cough; Lumbosacral spondylosis without myelopathy; Seasonal allergic rhinitis, unspecified trigger; Age-related osteoporosis without current pathological fracture (CMS/HCC) Start: 08-01-2024 End: 08-01-2024 ambulatory KAMILA PRIDE Not Available Start: 07-26-2024 End: 07-26-2024 ambulatory KAMILA PRIDE Not Available Start: 07-18-2024 End: 07-18-2024 Clinisync Result Encounter Roc Steele MD Work Phone: [facility] External Department Unsolicited Start: 07-18-2024 End: 07-18-2024 Clinisync Result Encounter Roc Steele MD Work Phone: [facility] External Department Unsolicited Start: 07-15-2024 End: 07-15-2024 Office consultation new/estab patient 60 min Amber Hawley MD Work Phone: [facility] Comment on above: Encounter to [facility] with new doctor; Paroxysmal supraventricular tachycardia (CMS-HCC); Abnormal EKG; Lightheadedness; Chest discomfort; Palpitations; Primary hypertension; Stenosis of carotid artery, unspecified laterality; Mixed hyperlipidemia; Stage 3a chronic kidney disease (Multi); Gastroesophageal reflux disease without esophagitis; At high risk for falls; Uses roller walker; Severe obesity (BMI >= 40) (Multi); Never smoked cigarettes Start: 07-15-2024 End: 07-15-[address] [facility] Start: 07-11-2024 End: 07-11-2024 Assay of hemosiderin, quant Kamila Pride NP Work Phone: [facility] Start: 07-11-2024 End: 07-11-2024 Patient encounter procedure Kamila Pride NP Work Phone: [facility] Comment on above: Insomnia, unspecifie d type [...] 07-03-2024 End: 07-03-2024 Bamboo flowsheet Kamila Pride [employer] Work Phone: [facility] Start: 07-03-2024 End: 07-03-2024 Bamboo flowshien Pride [employer] Work Phone: [facility] Start: 07-03-2024 End: 07-03-2024 Office outpatient visit 25 minutes Kamila Pride [employer] Work Phone: [facility] Comment on above: Paroxysmal supravent ricular tachycardia (CMS/HCC) (Primary Dx); Primary insomnia; Acute congestive heart failure, unspecified heart failure type (CMS/HCC); Stage 3b chronic kidney disease (HCC) (CMS/HCC); Weakness; Other fatigue; Pain of right hip; Fall, initial encounter Start: 07-03-2024 End: 07-03-2024 ambulatory KAMILA PRIDE Not Available Start: 06-11-2024 End: 06-11-2024 Bamboo flowsheet Kamila Pride [employer] Work Phone: [facility] Start: 06-11-2024 End: 06-11-2024 Bamboo flowsheet Kamila Pride [employer] Work Phone: [facility] Start: 06-11-2024 End: 06-11-2024 Office outpatient visit 25 minutes Kamila Pride [employer] Work Phone: [facility] Comment on [...] 05-22-2024 End: 05-22-2024 Bamboo flowsheet Kamila Pride [employer] Work Phone: [facility] Start: 05-22-2024 End: 05-22-2024 Bamboo flowsheet Kamila Pride [employer] Work Phone: [facility] Start: 05-22-2024 End: 05-22-2024 Office outpatient visit 25 minutes Kamila Pride [employer] Work Phone: [facility] Comment on above: Stage 3b chronic kid javon disease (HCC) (CMS/HCC) (Primary Dx); Benign essential hypertension (CMS/HCC); Hypomagnesemia; Pneumonia of both lungs due to infectious organism, unspecified part of lung Start: 05-22-2024 End: 05-22-2024 ambulatory KAMILA PRIDE Not Available Start: 05-16-2024 End: 05-16-2024 Clinisync Result Encounter Kamila Pride [employer] Work Phone: [facility] Unsolicited Start: 05-16-2024 End: 05-16-2024 Clinisync Result Encounter Kamila Pride [employer] Work Phone: [facility] Unsolicited Start: 05-15-2024 End: 05-15-2024 Office outpatient visit 25 minutes Kamila Pride [employer] Work Phone: [facility] Comment on [...] Office outpatient visit 25 minutes Kamila Pride [employer] Work Phone: [facility] Comment on [...] Start: 04-29-2024 End: 04-29-2024 ambulatory Mala Sapp Facility:[facility] Start: 04-15-2024 End: 04-16-2024 Refill Kamila Pride [employer] Work Phone: [facility] Comment on above: Primary insomnia Start: 04-04-2024 End: 04-04-2024 Orders Only Kamila Pride [employer] Work Phone: [facility] Comment on above: Acute pulmonary omid a (CMS/HCC) (Primary Dx); Hypokalemia Start: 04-03-2024 End: 04-03-2024 Bamboo flowsheet Kamila Pride [employer] Work Phone: [facility] Start: 04-03-2024 End: 04-03-2024 Bamboo flowsheet Kamila Pride [employer] Work Phone: [facility] Start: 04-03-2024 End: 04-03-2024 ambulatory KAMILA PRIDE Not Available Start: 04-03-2024 End: 04-03-2024 Office outpatient visit 25 minutes Kamila Pride [employer] Work Phone: [facility] Comment on above: Acute cough (Primary Dx); Rib pain; Fall, initial encounter; Shortness of breath; Lumbosacral spondylosis without myelopathy; Pain of right hand; Right wrist pain; Acute non-recurrent sinusitis of other sinus Start: 04-03-2024 End: 04-03-2024 ambulatory KAMILA PRIDE Not Available Start: 03-07-2024 End: 03-07-2024 Bamboo flowsheet Waqas Dugan DO Work Phone: [facility] Start: 03-07-2024 End: 03-07-2024 Bamboo flowsheet Waqas Dugan DO Work Phone: [facility] Start: 03-07-2024 End: 03-07-2024 Patient encounter procedure Bullopher Ritchie DO Work Phone: [facility] Comment on above: Carpal tunnel syndro me on left (Primary Dx) Start: 03-07-2024 End: 03-07-2024 ambulatory WAQAS DUGAN Not Available Start: 03-05-2024 End: 03-05-2024 Bamboo flowsheet Kamila Pride [employer] Work Phone: [facility] Start: 03-05-2024 End: 03-05-2024 Bamboo flowsheet Kamila Pride [employer] Work Phone: [facility] Start: 03-05-2024 End: 03-05-2024 Office outpatient visit 25 minutes Kamila Pride [employer] Work Phone: [facility] Comment on above: Cellulitis of finger of left hand (Primary Dx); Flu vaccine need; Numbness of hand; Encounter for screening mammogram for malignant neoplasm of breast; Lymphadenopathy; Axillary pain, left; Ankylosing spondylitis of thoracic region ([facility] Start: 03-05-2024 End: 03-05-2024 [...] Comment on above: Benign essential hyp ertension ([facility] Start: 12-14-2023 End: 12-14-2023 [...] 10-04-2022 Patient encounter procedure [facility] Work Phone: [facility] [place] Work Phone: Start: 10-04-[address] Roc Steele II Facility:[id number] Start: 09-05-2022 End: 09-05-[address] SARABJIT CORNEJO . Facility:[facility] Start: 09-03-2022 End: 09-03-2022 ambulatory SASHA DUTTA . Facility:[facility] Start: 06-06-2022 End: 06-07-[address] ROC STEELE Facility:[facility] Start: 12-16-2020 Patient encounter procedure Mone Weiss MD Work Phone: [facility] [place] Work Phone: Start: 11-25-2020 Chart Update Tasia Crawford Work Phone: [facility] [place] Work Phone: Start: 10-15-2020 Patient encounter procedure Carmen Bird MD Work Phone: [facility] [place] Work Phone: Start: 02-13-2020 Patient encounter procedure Tasia Bird [facility] [place] Work Phone: Start: 01-16-2020 Patient encounter procedure Tasia Bird [facility] [place] Work Phone: [...] 07-11-2024 Hemoglobin glycosyla isabel a1c Kamila Pride [employer] Work Phone: Start: 05-16-2024 ALL BASIC METABOLIC PANEL Kamila Pride [employer] Work Phone: Start: 05-12-2024 BLOOD CULTURE 1 Generic External Data Provider Start: 03-07-2024 End: 03-07-2024 Needle emg ea extremty w/paraspinl area complete Waqas Dugan DO Work Phone: Implantation of join t prosthesis Tasia Bird Plan of Treatment Date Care Activity Detail Author Start: 07-26-[address] [facility] Start: 07-26-2026 Screening for osteoporosis Bone Density Scan [facility] Start: 09-18-[address] [facility] Start: 05-16-2025 End: 05-16-2025 Patient encounter procedure 05/16/2025 2:00 PM EST Office Visit [facility] [address] [facility] [address] [place] [address] Amber Hawley MD [address] [facility] [address] [place] [address] [facility] Start: 12-30-2024 Influenza vaccination Influenza Vaccine (#1) [facility] Start: 12-19-2024 End: 12-19-2024 Patient encounter procedure 12/19/2024 3:00 PM EDT Procedure Visit [facility] [address] [facility] [address] [place] [address] Alex Alfredo DPM [address] [facility] [address] [place] [address] [facility] Start: 11-20-2024 End: 11-20-2024 Professional / ancillary services management 11/20/2024 2:00 PM EDT Ancillary Procedure [address] [address] [facility] Start: 2024 End: 2024 Patient encounter procedure 2024 2:15 PM EDT Office Visit [address] [address] Amber Hawley MD [address] [address] [facility] Start: 2024 End: 2026 Holter monitor study Holter Or Event [employer] Cardiac Services Routine Palpitations Expected: 2024 (Approximate), Expires: 2026 [facility] Service Area Work Phone: Comment on above: Expected: 2024 (Approximate), Expi res: 2026 Start: 11-04-2024 End: 11-04-2024 Patient encounter procedure 11/04/2024 2:30 PM EDT Office Visit [address] [address] Amber Hawley MD [address] [address] [facility] Start: 10-30-2024 End: 10-30-2024 Patient encounter procedure 10/30/2024 11:30 AM EDT Office Visit [facility] [address] [facility] [address] [place] [address] Kamila Pride, [employer] [address] [facility] [address] [place] [address] [facility] Start: 10-16-2024 End: 10-16-2024 Patient encounter procedure [facility] Comment on above: Arrived Start: 10-10-2024 End: 10-10-2024 Patient encounter procedure 10/10/2024 3:00 PM EDT Procedure Visit [facility] [address] [facility] [address] [place] [id number] Alex Alfredo, DPM [address] [facility] [address] [place] [address] [facility] Start: 09-19-2024 End: 09-19-2024 Professional / ancillary services management 09/19/2024 1:00 PM EDT Ancillary [facility] [address] [facility] [address] [place] [address] [facility] Start: 09-19-2024 End: 09-19-2024 Patient encounter procedure Sangeetha Jiménez Start: 09-19-2024 Subsequent hospital visit by physician 09/19/2024 11:30 AM EDT Hospital Encounter Sangeetha Jiménez [address] [facility] [address] [place] [phone] [facility] Start: 09-18-2024 End: 09-18-2024 Patient encounter procedure Sangeetha Jiménez Start: 08-01-2024 End: 08-01-2024 Patient encounter procedure [facility] Comment on above: Arrived Start: 07-23-2024 End: 07-23-2024 Professional / ancillary services management 07/23/2024 11:30 AM EDT Ancillary Procedure [facility] [address] [facility] [address] [place] [id number] [facility] Start: 07-15-2024 End: 07-15-2025 Holter monitor study Holter Or Event [employer] Specialist Cardiac Services Routine Paroxysmal supraventricular tachycardia (CMS-HCC) Abnormal EKG Lightheadedness Chest discomfort Palpitations Expected: 07/15/2024 (Approximate), Expires: 07/15/2025 [facility] Work Phone: Comment on above: Expected: 07/15/2024 (Approximate), Expi res: 07/15/2025 Start: 07-15-2024 End: 07-15-2026 NM Heart Perfusion W stress and W radionuclide IV Nuclear Stress Test Cardiac Nuclear Medicine Routine Lightheadedness Chest discomfort Palpitations Mixed hyperlipidemia Expected: 07/15/2024 (Approximate), Expires: 07/15/2026 [facility] Work Phone: Comment on above: Expected: 07/15/2024 (Approximate), Expi res: 07/15/2026 Start: 07-15-2024 End: 07-15-2026 Heart Transthoracic Transthoracic Echo Complete Echocardiography Routine Paroxysmal supraventricular tachycardia ([facility]-HCC) Abnormal EKG Palpitations Expected: 07/15/2024 (Approximate), Expires: 07/15/2026 [facility] Service Area Work Phone: Comment on above: Expected: 07/15/2024 (Approximate), Expi res: 07/15/2026 Start: 07-11-2024 End: 07-11-2025 DXA Skeletal system Views for bone density DEXA bone density Imaging Routine Osteopenia of both hips Decreased estrogen level Expected: 07/11/2024, Expires: 07/11/2025 [facility] [employer] Work Phone: Comment on above: Expected: 07/11/2024, Expires: Start: 07-11-2024 End: 07-11-2025 Lipid 1996 panel - Serum or Plasma Lipid panel Lab Routine Hyperlipidemia, unspecified hyperlipidemia type (CMS/HCC) Medicare annual wellness visit, subsequent Expected: 07/11/2024 (Approximate), Expires: 07/11/2025 [facility] Healthcare Comment on above: Expected: 07/11/2024 (Approximate), Expi res: 07/11/2025 Start: 07-11-2024 End: 07-11-2025 Microalbumin/Creatinine panel in random Urine Microalbumin / creatinine, urine ratio Lab Routine IGT (impaired glucose tolerance) Expected: 07/11/2024 (Approximate), Expires: 07/11/2025 [facility] Healthcare Comment on above: Expected: 07/11/2024 (Approximate), Expi res: 07/11/2025 Start: 07-11-2024 End: 07-11-2024 Patient encounter procedure 07/11/2024 1:00 PM EDT Office Visit [facility] [address] [place] [id number] Kamila Pride NP [address] [place] [address] [facility] Start: 07-06-2024 Medicare Annual Wellness Visit Medicare Annual Wellness Visit (AWV) [facility] Start: 07-05-2024 Medicare Annual Wellness (AWV) Medicare Annual Wellness (AWV) [facility] Start: 07-03-2024 End: 07-03-2025 Comprehensive metabolic 2000 panel - Serum or Plasma Comprehensive metabolic panel Lab Routine Stage 3b chronic kidney disease (HCC) (CMS/HCC) Expected: 07/03/2024 (Approximate), Expires: 07/03/2025 [facility] Work Phone: Comment on above: Expected: 07/03/2024 (Approximate), Expi res: 07/03/2025 Start: 07-03-2024 End: 07-03-2025 Magnesium [Mass/volume] in Serum or Plasma Magnesium Lab Routine Stage 3b chronic kidney disease (HCC) (CMS/HCC) Weakness Other fatigue Expected: 07/03/2024 (Approximate), Expires: 07/03/2025 [facility] Healthcare Comment on above: Expected: 07/03/2024 (Approximate), Expi res: 07/03/2025 Start: 07-03-2024 End: 07-03-2025 XR Hip - right 3 Views XR hip right 2 or 3 views Imaging Routine Pain of right hip Fall, initial encounter Expected: 07/03/2024, Expires: 07/03/2025 [facility] Healthcare Comment on above: Expected: 07/03/2024, Expires: Start: 07-03-2024 End: 07-03-2024 Patient encounter procedure 07/03/2024 11:30 AM EST Office Visit [facility] [address] [place] [phone] Kamila Pride NP [address] [place] [address] Arrived [facility] Comment on above: Arrived Start: 06-11-2024 End: 06-11-2025 Natriuretic peptide B [Mass/volume] in Blood B-type natriuretic peptide Lab Routine Acute congestive heart failure, unspecified heart failure type ([facility]/HCC) Expected: 06/11/2024 (Approximate), Expires: 06/11/2025 [facility] Work Phone: Comment on above: Expected: 06/11/2024 (Approximate), Expi res: 06/11/2025 Start: 06-11-2024 End: 06-11-2024 Patient encounter procedure 06/11/2024 11:00 AM EST Office Visit [facility] [address] [place] [phone] Kamila Pride, [employer] [address] [place] [address] Arrived [facility] Comment on above: Arrived Start: 05-23-2024 End: 05-23-2024 Patient encounter procedure 05/23/2024 2:40 PM EST Procedure Visit [facility] [address] [place] [address] Alex Alfredo, DPM [address] [address] [facility] Start: 05-22-2024 End: 05-22-2025 CBC panel - Blood by Automated count CBC Lab Routine Stage 3b chronic kidney disease (HCC) ([facility]/HCC) Expected: 05/22/2024 (Approximate), Expires: 05/22/2025 [...] [address] [place] [address] Kamila Pride NP [address] [place] [address] Arrived [facility] Comment on above: Arrived Start: 05-16-2024 End: 05-16-2024 Patient encounter procedure 05/16/2024 1:00 PM EST Office Visit [facility] [address] [place] [address] Kamila Pried, [employer] [address] [place] [address] [facility] Start: 05-15-2024 End: 05-15-2025 [...] [address] [place] [address] Kamila Pride, [employer] [address] [place] [address] [facility] Start: 05-14-2024 End: 05-14-2024 Patient encounter procedure 05/14/2024 11:00 AM EST Office Visit [facility] [address] [place] [address] Kamila Pride [employer] [address] [place] [address] [facility] Start: 05-02-2024 End: 05-02-2024 Patient encounter procedure 05/02/2024 2:50 PM EST Procedure Visit [facility] [address] [place] [address] Alex Alfredo, DPM [address] [facility] [address] [place] [address] [facility] Start: 04-03-2024 [...] [address] [place] [address] Kamila Pride [employer] [address] [place] [address] Arrived [facility] Comment on above: Arrived Start: 03-07-2024 End: 03-07-2024 Patient encounter procedure 03/07/2024 11:00 AM EST Procedure Visit [facility] [address] [place] [address] Waqas Dugan, DO [address] [place] [id number] Numbness of hand [facility] [address] [...] Visit [facility] [address] [facility] [address] [place] [id number] Kamila Pride [employer] [address] [facility] [address] [place] [address] [facility] Start: 02-22-2024 End: 02-22-2024 Patient encounter procedure [facility] Comment on above: Pain due to onychomycosis of toenails of both feet (Primary Dx) Start: 01-31-2024 Influenza vaccination Influenza Vaccine (#1) [facility] Comment on above: Postponed from 12/31/2023 (Other Medical Reasons) Start: 12-31-2023 COVID-19 Vaccine () COVID-19 Vaccine () [facility] Start: 09-01-2024 Influenza vaccination Influenza Vaccine (#1) [facility] Start: 07-27-2023 End: 07-27-2023 Patient encounter procedure 07/27/2023 3:30 PM EDT Procedure Visit [facility] [address] [facility] [address] [place] [address] Alex Alfredo, EJM [address] [address] [facility] Start: 06-30-2023 Medicare Annual Wellness (AWV) Medicare Annual Wellness (AWV) [facility] Start: 06-29-2023 End: 06-29-2023 Patient encounter procedure 06/29/2023 2:30 PM EST Office Visit [facility] [address] [facility] [address] [place] [address] Alex Alfredo DPM [address] [address] [facility] Start: 06-15-2023 End: 06-15-2023 Patient encounter procedure 06/15/2023 2:30 PM EST Office Visit [facility] [address] [place] [address] Alex Alfredo, DPM [address] [address] [facility] Start: 10-21-2022 Screening for osteoporosis Bone Density Scan [facility] Start: 10-17-2022 NPV, Provider: Roc Alvarado, Status: Pen, Time: 1:30 PM NPV, Provider: Roc Alvarado, Status: Hang, Time: 1:30 PM -[facility] Work Phone: Start: 2021 RSV High Risk: (Elderly (60+) or Population) (1 - 1-dose 75+ series) RSV High Risk: (Elderly (60+) or Population) (1 - 1-dose 75+ series) [facility] Start: 01-29-2021 Creatinine measurement Creatinine Level [facility] Start: 01-29-2021 Diabetes mellitus screening Diabetes Screening [facility] Start: 01-29-2021 [address] measurement Potassium Level [facility] Start: 01-07-2021 FUV, Provider: Tasia Bird, Status: Pen, Time: 2:15 PM FUV, Provider: Tasia Bird, Status: Pen, Time: 2:15 PM -[facility] Work Phone: Start: 12-03-2020 FUV, Provider: Tasia Bird, Status: Pen, Time: 12:45 PM FUV, Provider: Tasia Bird, Status: Pen, Time: 12:45 PM [facility] Work Phone: Start: 1968 DTaP/Tdap/Td Vaccines (1 - Tdap) DTaP/Tdap/Td Vaccines (1 - Tdap) [facility] Start: 1965 Urine screening for protein CKD: Urine Protein Screening [facility] Start: 1964 Diabetes mellitus screening Diabetes Screening [facility] Start: 1964 Hepatitis C screening Hepatitis C Screening [facility] Start: [address] [facility] Start: [address] [facility] BLOOD CULTURE 1 BLOOD CULTURE 1 Lab Routine 05/12/2024 8:10 PM EST [facility] End: 09-18-2024 NM Heart Perfusion W stress and W radionuclide IV [facility] Service Area Work Phone: Comment on above: Once for 1 Occurrences starting 09/19/19 until 09/18/2024 Immunizations Immunization Date Immunization Notes Care Provider Hao allred 03-05-2024 Influenza, High-dose Seasonal, Quadrivalent, Preservative Free Kamila Pride NP Work Phone: [facility] 03-05-2024 influenza virus vacc ine, unspecified formulation Amber Hawley MD Work Phone: [facility] Work Phone: 03-01-2023 Influenza, High-dose Seasonal, Quadrivalent, Preservative Free Alex Alfredo DPM Work Phone: [facility] 03-01-2023 influenza virus vacc ine, unspecified formulation Roc Steele MD Work Phone: [facility] 03-31-2022 Moderna Bivalent Pereira ster Vaccination Alex Alfredo DPM Work Phone: [facility] 03-23-2022 Influenza, High-dose Seasonal, Quadrivalent, Preservative Free Alex Alfredo DPM Work Phone: [facility] 01-28-2021 Influenza, Seasonal, Quadrivalent, Adjuvanted Alex Alfredo DPM Work Phone: [facility] 01-30-2020 influenza, injectabl e, quadrivalent, preservative free Alex Alfredo DPM Work Phone: [facility] 09-26-2019 zoster vaccine recombinant Alex Alfredo DPM Work Phone: [facility] 05-16-2019 zoster vaccine recombinant Alex Alfredo DPM Work Phone: [facility] 01-31-2018 influenza, high dose seasonal, preservative-free Alex Alfredo DPM Work Phone: [facility] 01-25-2017 influenza, high dose seasonal, preservative-free Alex Alfredo DPM Work Phone: [facility] 02-02-2016 influenza, injectabl e, quadrivalent, contains preservative Alex Alfredo DPM Work Phone: [facility] 02-07-2015 pneumococcal conjuga te vaccine, 13 valent Alex Alfredo DPM Work Phone: [facility] 01-30-2015 seasonal influenza, intradermal, preservative free Alex Aflredo DPM Work Phone: [facility] 02-07-2014 seasonal influenza, intradermal, preservative free Alex Alfredo DPM Work Phone: [facility] 12-11-2013 pneumococcal polysaccharide vaccine, 23 valent Alex Alfredo DPM Work Phone: [facility] 01-17-2012 zoster vaccine, live Zoya Alfredo DPM Work Phone: [facility] Healthcare Payers Date Payer Category Payer Private Health Insurance [id number] 2022 Unknown 2008 Medicare [id number] 2008 Medicare [id number] 1959 Medicare [id number] 1959 Unknown [id number] 1946 Unknown [id number] 2.16.84 0.1.691013.3.579.2.593 1946 Unknown [id number] 2.16.84 0.1.009906.3.579.2.593 1946 Unknown [id number] 2.16.84 0.1.648980.3.579.2.593 1946 Unknown [id number] 2.16.8 40.1.270076.3.579.2.1068 1946 Unknown [id number] 2.16.8 40.1.895715.3.579.2.1259 1946 Unknown [id number] 2.16.8 40.1.819499.3.579.2.1259 1946 Unknown [id number] 2.16.84 0.1.494020.3.579.2.1259 1946 Unknown [id number] 2.16.84 0.1.806969.3.579.2.1259 1946 Unknown [id number] 2.16.84 0.1.315200.3.579.2.1259 1946 Unknown [id number] 2.16.84 0.1.616700.3.579.2.1258 1946 Unknown [id number] 2.16.84 0.1.531687.3.579.2.1258 1946 Unknown [id number] 2.16.84 0.1.147571.3.579.2.1258 1946 Unknown [id number] 2.16.84 0.1.517542.3.579.2.1258 1946 Unknown [id number] 2.16.84 0.1.495171.3.579.2.1258 1946 Unknown [id number] 2.16.84 0.1.794740.3.579.2.1258 1946 Unknown [id number] 2.16.84 0.1.167131.3.579.2.1258 1946 Unknown [id number] 2.16.84 0.1.534422.3.579.2.1258 1946 Unknown [id number] 2.16.84 0.1.972786.3.579.2.1258 1946 Unknown [id number] 2.16.84 0.1.840747.3.579.2.1258 1946 Unknown [id number] 2.16.84 0.1.606662.3.579.2.1258 1946 Unknown [id number] 2.16.84 0.1.632038.3.579.2.1258 1946 Unknown [id number] 2.16.84 0.1.659003.3.579.2.1258 1946 Unknown [id number] 2.16.84 0.1.152725.3.579.2.1258 1946 Unknown [id number] 2.16.84 0.1.465377.3.579.2.1258 1946 Unknown [id number] 2.16.84 0.1.503237.3.579.2.1259 1946 Unknown [id number] 2.16.84 0.1.486282.3.579.2.1259 1946 Unknown [id number] 2.16. 840.1.755211.3.579.2.196 1946 Unknown [id number] 2.16. 840.1.063902.3.579.2.196 1946 Unknown [id number] 2.16. 840.1.764647.3.579.2.196 1946 Unknown [id number] 2.16. 840.1.172514.3.579.2.1244 1946 Unknown [id number] 2.16. 840.1.773192.3.579.2.1244 1946 Unknown [id number] 2.16. 840.1.743016.3.579.2.1244 1946 Unknown [id number] 2.16.8 40.1.941262.3.579.2.1246 1946 Unknown [id number] 2.16.8 40.1.432296.3.579.2.6 1946 Unknown [id number] 2.16.8 40.1.434470.3.579.2.6 1946 Unknown [id number] 2.16.8 40.1.291671.3.579.2.1246 1946 Unknown [id number] 2.16.8 40.1.928666.3.579.2.1246 1946 Unknown [id number] 2.16.8 40.1.760080.3.579.2.1246 Social History Date Type Detail Facility Start: [...] Exposure to SARS-CoV-2 (event) Not sure [facility] Start: 2024 Alcoholic beverage intake Ex-drinker (finding) [facility] Work Phone: NEGATED: Highlighted row - - -[facility] [place] Work Phone: Medical Equipment Procedure Code Equipment Code Equipment Original Text Equipment Identifier Dates Screw, Low Profile Hex, 6.5 X 15 Mm Case [id number] Start: 01-29-2020 Comment on above: Description: Convert ed from [facility]. Please see archived information for full log information. Screw, Low Profile Hex, 6.5 X 25 Mm Case [id number] Start: 01-29-2020 Comment on above: Description: Convert ed from [facility]. Please see archived information for full log information. Head, Femur V40 36mm +2.5mm Biolox Delta Case [id number] Start: 01-29-2020 Comment on above: Description: Convert ed from [facility]. Please see archived information for full log information. Stem, Femur 132d Sz 5 [place] Ii Case [id number] Start: 01-29-2020 Comment on above: Description: Convert ed from [facility]. Please see archived information for full log information. Shell, Trident Ii, Clusterhole, [place] 52e Case [id number] Start: 01-29-2020 Comment on above: Description: Convert ed from [facility]. Please see archived information for full log information. Liners, Poly 36 X 10 D Trid Crossfire E Case [id number] Start: 01-29-2020 Comment on above: Description: Convert ed from [facility]. Please see archived information for full log information. Functional Status Date Assessment Result Facility 10-16-2024 Patient Health Questionnaire 2 item (PHQ-2) [Reported] [facility] 08-19-2024 Patient Health Questionnaire 2 item (PHQ-2) [Reported] [facility] NEGATED: Highlighted row Functional performance Functional status health issues are not documented [facility] [place] Work Phone: Mental Status Date Assessment Result Facility NEGATED: Highlighted row Cognitive function [Interpretation] Cognitive status health issues are not documented [facility] [place] Work Phone: Clinical Notes [...] INJECTION x7 NERVE BLOCK Left 03/26/2019 T12-L3 TX TOTAL HIP ARTHROPLASTY Left [place] (01-29-2020 to 01-30-2020) RADIOFREQUENCY ABLATION Left 06/25/2019 [...] (NEURONTIN) 300 mg, 2 times daily HYDROcodone-acetaminophen ([place]) 5-325 mg tablet 1 tablet, Every 4 [...] XL (TOPROL-XL) 50 mg, oral, Every morning bqocspwefxmq-Jh-nuzz-minerals tablet 1 tablet, Daily nortriptyline (PAMELOR) 30 [...] (241.3 mg elemental) tablet 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 Mixed hyperlipidemia simvastatin (Zocor) [...] the presence of Dr. Amber Hawley MD, [facility]. I, Dr. Amber Hawley MD, [facility], personally performed the services described in the documentation as scribed by Katty Iverson LPN in my presence, and confirm it is both accurate and complete. documented in this encounter [facility] Work Phone: 2024 Instructions Katty [...] on exercise. documented in this encounter [facility] Work Phone: 10-17-2024 Telephone encounter Note Luma was seen yesterday called stating that her medication was not sent in yet. Please send meds to [facility] [place] [facility] 10-17-2024 Miscellaneous Notes Luma was seen yesterday called stating that her medication was not sent in yet. Please send meds to [facility] in [place] documented in this encounter [facility] 10-16-2024 History of Present illness Narrative [...] INJECTION x7 NERVE BLOCK Left 03/26/2019 T12-L3 TX TOTAL HIP ARTHROPLASTY Left [place] (01-29-2020 to 01-30-2020) RADIOFREQUENCY ABLATION Left 06/25/2019 [...] follow-ups on file. documented in this encounter [facility] 10-10-2024 History of Present illness Narrative [...] min Stress: No Stress Concern Present (11/25/2022) [employer] [place] [employer] - Occupational Stress Questionnaire Feeling of Stress : Only a little Social Connections: Moderately Isolated (11/25/2022) Social Connection and Isolation Panel [NHANES] Frequency of Communication with Friends and Family: More than three times a week Frequency of Social Gatherings with Friends and Family: Once a week Attends Voodoo Services: Never Active Member of Clubs or [...] Alex Alfredo DPM documented in this encounter [facility] 08-19-2024 History of Present illness Narrative Images from the original note were not included. HPI prolia injection Additional comments: Here for injection billed and shipped from [facility] Last edited by Katie Ritter LPN on 08/19/2024 11:24 AM. Subjective Patient ID: Luma Ribeiro is a 78 y.o. female who presents for prolia injection (Here for injection billed and shipped from [facility]) and Osteoporosis. Patient complains of osteoporosis. She [...] MOUTH TWICE DAILY 200 capsule 3 HYDROcodone-acetaminophen ([place]) 5-325 MG tablet Take 1 tablet by [...] INJECTION x7 NERVE BLOCK Left 03/26/2019 T12-L3 TX TOTAL HIP ARTHROPLASTY Left [place] (01-29-2020 to 01-30-2020) RADIOFREQUENCY ABLATION Left 06/25/2019 [...] months (around 10/19/2024). documented in this encounter [facility] 08-01-2024 History of Present illness Narrative [...] min Stress: No Stress Concern Present (11/25/2022) [employer] [place] [employer] - Occupational Stress Questionnaire Feeling of Stress : Only a little Social Connections: Moderately Isolated (11/25/2022) Social Connection and Isolation Panel [NHANES] Frequency of Communication with Friends and Family: More than three times a week Frequency of Social Gatherings with Friends and Family: Once a week Attends Voodoo Services: Never Active Member of Clubs or [...] Alex Alfredo DPM documented in this encounter [facility] 08-01-2024 History of Present illness Narrative [...] INJECTION x7 NERVE BLOCK Left 03/26/2019 T12-L3 TX TOTAL HIP ARTHROPLASTY Left [place] (01-29-2020 to 01-30-2020) RADIOFREQUENCY ABLATION Left 06/25/2019 [...] lozenges. Lumbosacral spondylosis without myelopathy - HYDROcodone-acetaminophen ([place]) 5-325 MG tablet; Take 1 tablet by [...] directed. Age-related osteoporosis without current pathological fracture ([facility]) - denosumab (Prolia) 60 MG/ML solution prefilled syringe; Inject 1 mL (60 mg) under the skin 1 (one) time for 1 dose Avoid falls as you can fracture. Take calcium with vitamin D. If you get this medication from your insurance, call the office and we can give you the medication No follow-ups on file. 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 Compared to EKG from December 2019, left axis deviation loss of lateral R waves were noted in December 2019. [facility] 07-15-2024 History of Present illness Narrative Images [...] wheeled walkers. Subjective : Was hospitalized at [facility] in May 2024. She was told [...] Medical History: Cardiomegaly Diverticulosis 2012 Edema Glaucoma ([facility]) Heart disease, unspecified History [...] INJECTION x7 NERVE BLOCK Left 03/26/2019 T12-L3 TX TOTAL HIP ARTHROPLASTY Left [place] (01-29-2020 to 01-30-2020) RADIOFREQUENCY ABLATION Left 06/25/2019 [...] ALPRAZolam (XANAX) 0.25 mg, Nightly PRN HYDROcodone-acetaminophen ([place]) 5-325 mg tablet 1 tablet, Every 4 [...] occurred after the last office visit with ca May 2024 BUN 15 creatinine 1.04 GFR 55 sodium 137 potassium 4.7 liver enzymes normal GFR was 52 in June 2023 Assessment: 1. Encounter to establish care with new doctor ECG 12 Lead 2. Paroxysmal supraventricular tachycardia (CMS-HCC) Follow Up In Cardiology magnesium oxide (Mag-Ox) 400 mg (241.3 mg magnesium) tablet Transthoracic Echo Complete Holter Or Event [employer] Operations Specialist 3. Abnormal EKG Transthoracic Echo Complete 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 Lightheadedness Nuclear Stress Test Holter Or Event [employer] Artillery Operations Specialist 5. Chest discomfort Nuclear Stress Test Holter Or Event [employer] Artillery Operations Specialist 6. Palpitations Transthoracic Echo Complete Nuclear Stress Test Holter Or Event Field Artillery Operations Specialist 7. Primary hypertension 8. Stenosis [...] and complete. documented in this encounter [facility] Work Phone: 07-15-2024 Instructions Katty [...] on exercise. documented in this encounter [facility] Work Phone: 07-11-2024 History of [...] Do you have a medical power of turf manager?: Yes Who is your medical power of turf manager?: Objective : BP 130/80 Pulse 87 Ht [...] 16. Morbid obesity due to excess calories ([facility]) Discussed goal of BMI [...] this time. 22. Hyperlipidemia, unspecified hyperlipidemia type ([facility]) This is a chronic [...] July 11, 2024 documented in this encounter [facility] 07-03-2024 History of Present illness Narrative [...] INJECTION x7 NERVE BLOCK Left 03/26/2019 T12-L3 TX TOTAL HIP ARTHROPLASTY Left [place] (01-29-2020 to 01-30-2020) RADIOFREQUENCY ABLATION Left 06/25/2019 [...] orders for this visit: Paroxysmal supraventricular tachycardia ([facility]/HCC) - Ambulatory referral to Cardiology; Future Awaiting cardiology appointment. She did not follow up with cardiology as she was supposed to when she got out of the hospital. New referral sent as she wants to go to the loom fixer that her goes to. Primary insomnia - [...] congestive heart failure, unspecified heart failure type ([facility]/HCC) - Ambulatory referral to Cardiology; Future Awaiting cardiology appointment. She did not follow up with cardiology as she was supposed to when she got out of the hospital. New referral sent as she wants to go to the loom fixer that her goes to. Stage 3b chronic [...] follow-ups on file. documented in this encounter [facility] 06-11-2024 History of Present illness Narrative [...] for 3 days and she called the tonnage compilation clerk nurse and they advised her to go [...] INJECTION x7 NERVE BLOCK Left 03/26/2019 T12-L3 TX TOTAL HIP ARTHROPLASTY Left [place] (01-29-2020 to 01-30-2020) RADIOFREQUENCY ABLATION Left 06/25/2019 [...] to follow up with Dr. Chavez in [facility]. Await his recommendations. She continue on [...] follow-ups on file. documented in this encounter [facility] 05-23-2024 History of Present illness Narrative [...] min Stress: No Stress Concern Present (11/25/2022) [employer] [place] [employer] - Occupational Stress Questionnaire Feeling of Stress : Only a little Social Connections: Moderately Isolated (11/25/2022) Social Connection and Isolation Panel [NHANES] Frequency of Communication with Friends and Family: More than three times a week Frequency of Social Gatherings with Friends and Family: Once a week Attends Voodoo Services: Never Active Member of Clubs or [...] Alex Alfredo DPM documented in this encounter [facility] 05-22-2024 History of Present illness Narrative [...] INJECTION x7 NERVE BLOCK Left 03/26/2019 T12-L3 TX TOTAL HIP ARTHROPLASTY Left [place] (01-29-2020 to 01-30-2020) RADIOFREQUENCY ABLATION Left 06/25/2019 [...] follow-ups on file. documented in this encounter [facility] 05-15-2024 History of Present illness Narrative Images from the original note were not included. Subjective Patient ID: Luma Ribeiro is a 78 y.o. female who presents for A F/U FOR PNEUMONIA, CHF Luma presents today for F/U for pneumonia and CHF. Was admitted to [facility] on 05-12-24.She is feeling weak and SOB still. Home health has not started. Pt would benefit from Nursing, PT/OT, and aide. PT was diagnosed with generalized weakness, CHF, And pneumonia. She continues on Doxycycline. The hospital discharge pt with an order for Lasix prn. Pt educated on when to take a prn lasix. She verbalized understanding. The hospital set up [facility] but we will set pt up with Erik as they have a contract with [facility]. She is home bound due to [...] INJECTION x7 NERVE BLOCK Left 03/26/2019 T12-L3 TX TOTAL HIP ARTHROPLASTY Left [place] (01-29-2020 to 01-30-2020) RADIOFREQUENCY ABLATION Left 06/25/2019 [...] follow-ups on file. documented in this encounter [facility] 05-07-2024 History of Present illness Narrative [...] TWICE DAILY 200 capsule 3 [] HYDROcodone-acetaminophen ([place]) 5-325 MG tablet Take 1 tablet by [...] INJECTION x7 NERVE BLOCK Left 03/26/2019 T12-L3 TX TOTAL HIP ARTHROPLASTY Left [place] (01-29-2020 to 01-30-2020) RADIOFREQUENCY ABLATION Left 06/25/2019 [...] Morbid (severe) obesity due to excess calories ([facility]/HCC) Body mass index (BMI) 45.0-49.9, adult ([facility]) Discussed goal of BMI [...] follow-ups on file. documented in this encounter [facility] 04-16-2024 Telephone encounter Note OARRS reviewed, Rx sent into patient's pharmacy. [facility] 04-16-2024 Miscellaneous Notes OARRS reviewed, Rx sent into patient's pharmacy. documented in this encounter [facility] 04-03-2024 History of Present illness Narrative [...] breathing, coughing, lifting and movement. Treatments tried: [place], cough syrup, muscle relaxer. The treatment provided [...] TWICE DAILY 200 capsule 3 [] HYDROcodone-acetaminophen ([place]) 5-325 MG tablet Take 1 tablet by [...] INJECTION x7 NERVE BLOCK Left 03/26/2019 T12-L3 TX TOTAL HIP ARTHROPLASTY Left [place] (01-29-2020 to 01-30-2020) RADIOFREQUENCY ABLATION Left 06/25/2019 [...] breathing. Lumbosacral spondylosis without myelopathy - HYDROcodone-acetaminophen ([place]) 5-325 MG tablet; Take 1 tablet by [...] follow-ups on file. documented in this encounter [facility] 03-07-2024 Note Carpal tunnel syndro me, left, severe. Progressed substantially when compared to EDX evaluation in 2021. C8 radiculopathy, left, moderate. Progressed when compared to EDX evaluation in 2021 [facility] 03-07-2024 Note Carpal tunnel syndro me, left, severe. Progressed substantially when compared to EDX evaluation in 2021. C8 radiculopathy, left, moderate. Progressed when compared to EDX evaluation in 2021 [facility] 03-07-2024 History of Present illness Narrative Images from the original note were not included. Reason for Appointment: EMG Patient: Luma Ribeiro : 1945 EMG Computer: FRESS Referring Physician: Kamila Pride CNP EMG: PABLO home health care coordinator: Jimmy Gibson RT(R) Office Location: [place] Reason for EMG: c/o numbness/tingling in left hand/forearm especially in 2nd & 3rd digits, weakness in left hand. No hx of DM. Not on blood thinners. Comments: Procedure was explained to the patient who expressed understanding. Patient appeared to have tolerated the test well despite some discomfort due to the nature of the test. documented in this encounter [facility] 03-05-2024 History of Present illness Narrative [...] inciting event Pt feels she has decreased netbackup engineer strength in left hand Hypertension This is [...] MOUTH TWICE DAILY 200 capsule 3 HYDROcodone-acetaminophen ([place]) 5-325 MG tablet Take 1 tablet by [...] at bedtime 90 tablet 1 [DISCONTINUED] HYDROcodone-acetaminophen ([place]) 5-325 MG tablet Take 1 tablet by [...] INJECTION x7 NERVE BLOCK Left 03/26/2019 T12-L3 TX TOTAL HIP ARTHROPLASTY Left [place] (01-29-2020 to 01-30-2020) RADIOFREQUENCY ABLATION Left 06/25/2019 [...] need - Influenza, high-dose seasonal, quadrivalent, PF (AEA761) (Fluzone High Dose [place] 0.7mL dose) [...] follow-ups on file. documented in this encounter [facility] 02-29-2024 Telephone encounter Note OARRS reviewed, Rx sent into patient's pharmacy. [facility] 02-29-2024 Miscellaneous Notes OARRS reviewed, Rx sent into patient's pharmacy. Hydrocodone 325 DDM IN [place] She had an appt today for a med follow up with kamila but had to change it due to her not being in. She said she has about 6 pills left. She did reschedule her med follow up for next Monday. documented in this encounter [facility] 02-29-2024 Telephone encounter Note Hydrocodone 325 DDM IN [place] She had an appt today for a med follow up with kamila but had to change it due to her not being in. She said she has about 6 pills left. She did reschedule her med follow up for next Monday. [facility] 01-29-2024 Telephone encounter Note Amlodipine sent [facility] 01-29-2024 Miscellaneous Notes Amlodipine sent documented in this encounter [facility] 06-15-2023 History of Present illness Narrative [...] Diagnosis Date Cardiomegaly Diverticulosis 2013 Edema Glaucoma ([facility] Heart disease, unspecified History of lumbar surgery multiple times HTN (hypertension) ([facility]) Hyperlipidemia ([facility]) Insomnia Lumbago Lumbosacral spondylosis [...] min Stress: No Stress Concern Present (11/25/2022) [employer] [place] [employer] - Occupational Stress Questionnaire Feeling of Stress : Only a little Social Connections: Moderately Isolated (11/25/2022) Social Connection and Isolation Panel [NHANES] Frequency of Communication with Friends and Family: More than three times a week Frequency of Social Gatherings with Friends and Family: Once a week Attends Voodoo Services: Never Active Member of Clubs or [...] Patient may continue with conservative treatments including ahxy-exb-behatot anti-inflammatories and other treatments suggested today. Patient may want to be scheduled for surgical intervention in the near future. Patient have the right hallux subungual exostectomy with the lateral left hallux partial permanent nail avulsion in the near future Alex Alfredo DPM documented in this encounter [facility] 06-01-2023 History of Present illness Narrative [...] Diagnosis Date Cardiomegaly Diverticulosis 2013 Edema Glaucoma ([facility]) Heart disease, unspecified History of lumbar surgery multiple times HTN (hypertension) ([facility]) Hyperlipidemia ([facility]) Insomnia Lumbago Lumbosacral spondylosis [...] min Stress: No Stress Concern Present (11/25/2022) [employer] [place] [employer] - Occupational Stress Questionnaire Feeling of Stress : Only a little Social Connections: Moderately Isolated (11/25/2022) Social Connection and Isolation Panel [NHANES] Frequency of Communication with Friends and Family: More than three times a week Frequency of Social Gatherings with Friends and Family: Once a week Attends Voodoo Services: Never Active Member of Clubs or [...] Patient may continue with conservative treatments including yrbf-frb-xedcwwe anti-inflammatories and other treatments suggested today. Patient [...] Alex Alfredo DPM documented in this encounter [facility] Evaluation note Diagnosis Subungual exostosis of [...] Fall, initial encounter documented in this encounter [facility] HealthcareEvaluation note* Diagnosis Insomnia, unspecified type- [...] failure type (CMS/HCC) documented in this encounter [facility] HealthcareEvaluation note* Diagnosis Encounter to establish care with new doctor Paroxysmal supraventricular tachycardia ([facility]) Paroxysmal supraventricular tachycardia Abnormal EKG [...] smoked cigarettes documented in this encounter [facility] Work Phone: Evaluation note* Diagnosis Pain due to onychomycosis of toenails of both feet- Primary documented in this encounter [facility] Healthcare[facility] note* Diagnosis SOB (shortness of breath)- Primary Shortness of breath Chronic cough Cough Lumbosacral spondylosis without myelopathy Seasonal allergic rhinitis, unspecified trigger Age-related osteoporosis without current pathological fracture (CMS/HCC) documented in this encounter [facility] HealthcareEvaluation note* Diagnosis Age-related osteoporosis without current pathological fracture (CMS/HCC)- Primary Osteopenia of both hips Chronic cough Cough documented in this encounter [facility] HealthcareEvaluation note* Diagnosis Lightheadedness Dizziness and giddiness Chest discomfort Other chest pain Palpitations Mixed hyperlipidemia documented in this encounter [facility] Work Phone: Evaluation note* Diagnosis Paroxysmal supraventricular tachycardia Abnormal EKG Nonspecific abnormal electrocardiogram (ECG) (EKG) Palpitations documented in this encounter [facility] Work Phone: Evaluation note* Diagnosis Pain due to onychomycosis of toenails of both feet- Primary documented in this encounter [facility] HealthcareEvaluation note* Diagnosis Acute low back pain without sciatica, unspecified back pain laterality- Primary documented in this encounter [facility] HealthcareEvaluation note* Diagnosis Lumbosacral spondylosis without myelopathy documented in this encounter [facility] HealthcareEvaluation note* Diagnosis Encounter to discuss test results- Primary Other specified counseling Uses roller walker Palpitations Mixed hyperlipidemia Chest discomfort Other chest pain CARO on CPAP Paroxysmal supraventricular tachycardia Never smoked cigarettes Body mass index (BMI) 40.0-44.9, adult (Multi) documented in this encounter [facility] Work Phone: History of Present illness NarrativeLuma is a 75-year-old female patient of Dr. Bird who is here for ultrasound-guided right intraarticular shoulder injection. She has a history of pain and discomfort. She was seen and evaluated and referred to me for first lifetime intraarticular shoulder injection, which the patient accepts[facility] Work Phone: History of Present illness Narrative* [...] normal pronation supination wrist flexion extension and 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 Distal pulses and sensation are intact. Limited forward flexion to about 25 degrees lateral abduction to about 15 unable to perform any external rotation but internal he can get to the small of her back. Herexam does not allow for much of a true Neer's Shelby or Newberry's test. * Diagnostics: See dictated report from today, previous outside CT scan report of the humerus reviewed, and is available in the [facility] chart. * Procedure: None * Assessment: [...] the patient's CT scan report reviewed in [facility] Other than the anterior medial dislocation and [...] grammatical areas may persist related to the [employer] software * Taniya Al MD * Office: * . -[facility] Work Phone: History of Present illness [...] Diagnosis Date Cardiomegaly Diverticulosis 2013 Edema Glaucoma ([facility]) Heart disease, unspecified History of lumbar surgery multiple times HTN (hypertension) ([facility]) Hyperlipidemia ([facility]) Insomnia Lumbago Lumbosacral spondylosis without myelopathy Myalgia, unspecified site Myositis Occlusion and stenosis of unspecified carotid artery without mention of cerebral infarction CARO (obstructive sleep apnea) Osteoarthrosis unspecified wheteher generalized or localized. unspecified site Osteopenia Paroxysmal supraventricular tachycardia ([facility]) Medications: Current Outpatient Medications: [...] min Stress: No Stress Concern Present (11/25/2022) [employer] [place] [employer] - Occupational Stress Questionnaire Feeling of Stress : Only a little Social Connections: Moderately Isolated (11/25/2022) Social Connection and Isolation Panel [NHANES] Frequency of Communication with Friends and Family: More than three times a week Frequency of Social Gatherings with Friends and Family: Once a week Attends Voodoo Services: Never Active Member of Clubs or [...] 9 Alex Alfredo DPM [facility] N[facility]* Other Medical (Routine) - Closed Specialty Diagnoses / Procedures Referred By Aminah beltran Referred To Contact Neurology Diagnoses Numbness of hand Procedures TX OFFICE/OUTPATIENT NEW HIGH MDM 60 MINUTES Kamila Pride NP [address] [facility] [address] [place] [address] Phone: tel: fax: Waqas Dugan DO [address] [place] [address] Phone: tel: fax: Referral ID Status Reason Start Date Expiration Date V isits Requested Visits Authorized [id number] Closed Perform Procedure 03/05/2024 09/01/2024 1 1 [facility]* Cardiac Stress Testing (Routine) - Authorized Specialty Diagnoses / Procedures Referred By Contac t Referred To Contact Radiology Diagnoses Lightheadedness Chest discomfort Palpitations Mixed hyperlipidemia Procedures Nuclear Stress Test CHG MYOCARDIAL SPECT MULTIPLE STUDIES Amber [place] MD [address] [facility] [address] [place] [address] Phone: tel: fax: Referral ID Status Reason Start Date Expiration Date V isits Requested Visits Authorized [id number] Authorized 07/15/2024 07/15/[address] [facility] Work Phone: Reason for visit Narrative* Cardiac Stress Testing (Routine) - Authorized Specialty Diagnoses / Procedures Referred By Contac t Referred To Contact Radiology Diagnoses Lightheadedness Chest discomfort Palpitations Mixed hyperlipidemia Procedures Nuclear Stress Test CHG MYOCARDIAL SPECT MULTIPLE STUDIES Amber [place] MD [address] [address] Phone: tel: fax: Referral ID Status Reason Start Date Expiration Date V isits Requested Visits Authorized [id number] Authorized 07/15/2024 07/15/[address] [facility] Work Phone: Reason for visit Narrative* CV Imaging (Routine) - Authorized Specialty Diagnoses / Procedures Referred By Contac t Referred To Contact Cardiology Diagnoses Paroxysmal supraventricular tachycardia Abnormal EKG Palpitations Procedures Transthoracic Echo Complete TX ECHO TTHRC R-T 2D W/WOM-MODE COMPL SPEC&COLR D Amber [place] MD [address] [address] Phone: tel: fax: Referral ID Status Reason Start Date Expiration Date Visits Requested Visits Authorized [id number] Authorized Perform Procedure 07/15/2024 07/15/[address] [facility] Work Phone: Chief Complaint * New problem * Right shoulder pain MP Refer : RT shoulder ultra sound guided injection* Right shoulder pain, here for injection. 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 Summary Purpose Family History No Family [...] and content) DATE CREATED AUTHOR 09/08/2022 [facility] DATE CREATED AUTHOR AUTHOR'S ORGANIZ ATION 09/12/2022 [facility] Specialist DATE CREATED AUTHOR AUTHOR'S ORGANIZ ATION 10/09/2022 [facility] DATE CREATED AUTHOR AUTHOR'S ORGANIZ ATION 10/09/2022 [facility] DATE CREATED AUTHOR AUTHOR'S ORGANIZ ATION 05/01/2024 [facility] DATE CREATED AUTHOR AUTHOR'S ORGANIZ ATION 07/28/2024 [facility] DATE CREATED AUTHOR AUTHOR'S ORGANIZ ATION 10/19/2024 [facility] EPIC DATE CREATED AUTHOR AUTHOR'S ORGANIZ ATION 11/16/2024 [facility] DATE CREATED AUTHOR AUTHOR'S ORGANIZ ATION 11/22/2024 [facility] DATE CREATED AUTHOR AUTHOR'S ORGANIZ ATION 11/23/2024 [facility] Reason for Visit (unrecogniz ed [...] 12 Lead Amber [place] MD [address] [facility] [address] [place] [address] Phone: tel: fax: Referral ID Status Reason Start Date Expiration Date V isits Requested Visits Authorized [id number] Authorized 07/15/2024 07/15/2025 1 1 Reason Comments [...] Up In Cardiology Amber [place] MD [address] [facility] [address] [place] [address] Phone: tel: fax: Amber Hawley MD [address] [facility] [address] [place] [address] Phone: tel: fax: Referral ID Status Reason Start Date Expiration Date V isits Requested Visits Authorized [id number] Authorized 07/15/2024 07/15/2025 1 1 Care Teams (unrecognized sec tion and content) Workday Director Relationship Specialty Start Date End Date Roc Steele MD [address] [place] [address] PCP - ACO Reach 09/22/22 Roc Steele MD [address] [place] [address] PCP - General Internal Medicine 09/28/22 Workday Director Relationship Specialty Start Date End Date Roc Steele MD [address] [place] [address] PCP - ACO Reach 09/22/22 Roc Steele MD [address] [place] [address] PCP - General Internal Medicine 09/28/22 Workday Director Relationship Specialty Start Date End Date Roc Steele MD [address] [place] [address] PCP - ACO Reach 09/22/22 Roc Steele MD [address] [place] [address] PCP - General Internal Medicine 09/28/22 Workday Director Relationship Specialty Start Date End Date oRc Steele MD [address] [place] [address] PCP - General Internal Medicine 09/28/22 Roc Steele MD [address] [place] [address] PCP - ACO Reach 08/30/23 Workday Director Relationship Specialty Start Date End Date Roc Steele MD [address] [place] [address] PCP - General Internal Medicine 09/28/22 Roc Steele MD [address] [place] [address] PCP - ACO Reach 08/30/23 Workday Director Relationship Specialty Start Date End Date Roc Steele MD [address] [place] [address] PCP - General Internal Medicine 09/28/22 Roc Steele MD [address] [place] [address] PCP - ACO Reach 08/30/23 Workday Director Relationship Specialty Start Date End Date Roc Steele MD [address] [place] [address] PCP - General Internal Medicine 09/28/22 Roc Steele MD [address] [place] [address] PCP - ACO Reach 08/30/23 Workday Director Relationship Specialty Start Date End Date Roc Steele MD [address] [place] [address] PCP - General Internal Medicine 09/28/22 Roc Steele MD [address] [place] [address] PCP - ACO Reach 08/30/23 Workday Director Relationship Specialty Start Date End Date Roc Steele MD [address] [place] [address] PCP - General Internal Medicine 09/28/22 Roc Steele MD [address] [place] [address] PCP - ACO Reach 08/30/23 Workday Director Relationship Specialty Start Date End Date Roc Steele MD [address] [place] [address] PCP - General Internal Medicine 09/28/22 Roc Steele MD [address] [place] [address] PCP - ACO Reach 08/30/23 Waqas Dugan DO [address] [place] [address] Referring Physician Neurology 03/07/24 Workday Director Relationship Specialty Start Date End Date Roc Steele MD [address] [place] [address] PCP - General Internal Medicine 09/28/22 Roc Steele MD [address] [place] [address] PCP - ACO Reach 08/30/23 Waqas Dugan DO [address] [place] [address] Referring Physician Neurology 03/07/24 Workday Director Relationship Specialty Start Date End Date Roc Steele MD [address] [place] [address] PCP - General Internal Medicine 09/28/22 Roc Steele MD [address] [place] [address] PCP - ACO Reach 08/30/23 Waqas Dugan DO [address] [place] [address] Referring Physician Neurology 03/07/24 Workday Director Relationship Specialty Start Date End Date Roc Steele MD [address] [place] [address] PCP - General Internal Medicine 09/28/22 Roc Steele MD [address] [place] [address] PCP - ACO Reach 08/30/23 Waqas Dugan DO [address] [place] [address], [place] [id number] Referring Physician Neurology 03/07/24 Workday Director Relationship Specialty Start Date End Date Roc Steele MD [address] [place] [address] PCP - General Internal Medicine 09/28/22 Roc Steele MD [address] [place] [address] PCP - ACO Reach 08/30/23 Waqas Dugan DO [address] [place] [address] Referring Physician Neurology 03/07/24 Workday Director Relationship Specialty Start Date End Date Roc Steele MD [address] [place] [address] PCP - General Internal Medicine 09/28/22 Roc Steele MD [address] [place] [address] PCP - ACO Reach 08/30/23 Workday Director Relationship Specialty Start Date End Date Roc Steele MD [address] [place] [address] PCP - General Internal Medicine 09/28/22 Roc Steele MD [address] [place] [address] PCP - ACO Reach 08/30/23 Waqas Dugan DO [address] [place] [address] Referring Physician Neurology 03/07/24 Workday Director Relationship Specialty Start Date End Date Roc Steele MD [address] [place] [address] PCP - General Internal Medicine 09/28/22 Roc Steele MD [address] [place] [address] PCP - ACO Reach 08/30/23 Waqas Dugan DO [address] [place] [address] Referring Physician Neurology 03/07/24 Workday Director Relationship Specialty Start Date End Date Roc Steele MD [address] [place] [address] PCP - General Internal Medicine 09/28/22 Roc Steele MD [address] [place] [address] PCP - ACO Reach 08/30/23 Waqas Dugan DO [address] [place] [address] Referring Physician Neurology 03/07/24 Workday Director Relationship Specialty Start Date End Date Roc Steele MD [address] [place] [address] PCP - General Internal Medicine 09/28/22 Roc Steele MD [address] [place] [address] PCP - ACO Reach 08/30/23 Waqas Dugan DO [address] [place] [address], [place] [id number] Referring Physician Neurology 03/07/24 Workday Director Relationship Specialty Start Date End Date Roc Steele MD [address] [place] [address] PCP - General Internal Medicine 09/28/22 Roc Steele MD [address] [place] [address] PCP - ACO Reach 08/30/23 Waqas Dugan DO [address] [place] [address] Referring Physician Neurology 03/07/24 Workday Director Relationship Specialty Start Date End Date Roc Steele MD [address] [place] [address] PCP - General Internal Medicine 09/28/22 Roc Steele MD [address] [place] [address] PCP - ACO Reach 08/30/23 Waqas Dugan DO [address] [place] [address] Referring Physician Neurology 03/07/24 Workday Director Relationship Specialty Start Date End Date Roc Steele MD [address] [place] [address] PCP - General Internal Medicine 09/28/22 Roc Steele MD [address] [place] [address] PCP - ACO Reach 08/30/23 Waqas Dugan DO [address] [place] [address], [place] [id number] Referring Physician Neurology 03/07/24 Workday Director Relationship Specialty Start Date End Date Roc Steele MD [address] [place] [address] PCP - General Internal Medicine 09/28/22 Roc Steele MD [address] [place] [address] PCP - ACO Reach 08/30/23 Waqas Dugan DO [address] [place] [address] Referring Physician Neurology 03/07/24 Raya Holt, RN [facility] 06/07/24 Workday Director Relationship Specialty Start Date End Date Roc Steele MD [address] [place] [address] PCP - General Internal Medicine 09/28/22 Roc Steele MD [address] [place] [address] PCP - ACO Reach 08/30/23 Waqas Dugan DO [address] [place] [address] Referring Physician Neurology 03/07/24 Raya Holt, RN [facility] 06/07/24 Workday Director Relationship Specialty Start Date End Date Roc Steele MD [address] [place] [address] PCP - General Internal Medicine 09/28/22 Roc Steele MD [address] [place] [address] PCP - ACO Reach 08/30/23 Waqas Dugan DO [address] [place] [address] Referring Physician Neurology 03/07/24 Raya Holt, RN [facility] 06/07/24 Workday Director Relationship Specialty Start Date End Date Roc Steele MD [address] [place] [address] PCP - General Internal Medicine 09/28/22 Roc Steele MD [address] [place] [address] PCP - ACO Reach 08/30/23 Waqas Dugan DO [address] [place] [address] Referring Physician Neurology 03/07/24 Raya Holt RN [facility] 06/07/24 Workday Director Relationship Specialty Start Date End Date Roc Steele MD [address] [place] [address] PCP - General Internal Medicine 09/28/22 Roc Steele MD [address] [place] [address] PCP - ACO Reach 08/30/23 Waqas Dugan DO [address] [place] [address], [place] [id number] Referring Physician Neurology 03/07/24 Raya Holt, CARMEN [facility] 06/07/24 Workday Director Relationship Specialty Start Date End Date Roc Steele MD [address] [place] [address] PCP - General 10/04/22 Workday Director Relationship Specialty Start Date End Date Roc Steele MD [address] [place] [address] PCP - General Internal Medicine 09/28/22 Roc Steele MD [address] [place] [address] PCP - ACO Reach 08/30/23 Waqas Dugan DO [address] [place] [address], [place] [address] Referring Physician Neurology 03/07/24 Gladis Laird LPN 07/19/24 Workday Director Relationship Specialty Start Date End Date Roc Steele MD [address] [place] [address] PCP - General Internal Medicine 09/28/22 Roc Steele MD [address] [place] [address] PCP - ACO Reach 08/30/23 Waqas Dugan DO [address] [place] [address] Referring Physician Neurology 03/07/24 Gladis Laird LPN 07/19/24 Workday Director Relationship Specialty Start Date End Date Roc Steele MD [address] [place] [address] PCP - General Internal Medicine 09/28/22 Roc Steele MD [address] [place] [address] PCP - ACO Reach 08/30/23 Waqas Dugan DO [address] [place] [address] Referring Physician Neurology 03/07/24 Gladis Laird LPN 07/19/24 Workday Director Relationship Specialty Start Date End Date Roc Steele MD [address] [place] [address] PCP - General Internal Medicine 09/28/22 Roc Steele MD [address] [place] [address] PCP - ACO Reach 08/30/23 Waqas Dugan DO [address] [place] [address] Referring Physician Neurology 03/07/24 Gladis Laird LPN 07/19/24 Workday Director Relationship Specialty Start Date End Date Roc Steele MD [address] [place] [address] PCP - General Internal Medicine 09/28/22 Roc Steele MD [address] [place] [address] PCP - ACO Reach 08/30/23 Waqas Dugan DO [address] [place] [address] Referring Physician Neurology 03/07/24 Gladis Laird LPN 07/19/24 Workday Director Relationship Specialty Start Date End Date Roc Steele MD [address] [place] [address] PCP - General 10/04/22 Workday Director Relationship Specialty Start Date End Date Roc Steele MD [address] [place] [address] PCP - General 10/04/22 Workday Director Relationship Specialty Start Date End Date Roc Steele MD [address] [place] [address] PCP - General 10/04/22 Workday Director Relationship Specialty Start Date End Date Roc Steele MD [address] [place] [address] PCP - General Internal Medicine 09/28/22 Roc Steele MD [address] [place] [address] PCP - ACO Reach 08/30/23 Waqas Dugan DO [address] [place] [address] Referring Physician Neurology 03/07/24 Gladis Laird LPN 07/19/24 Workday Director Relationship Specialty Start Date End Date Roc Steele MD [address] [place] [address] PCP - General Internal Medicine 09/28/22 Roc Steele MD [address] [place] [address] PCP - ACO Reach 08/30/23 Waqas Dugan DO [address] [place] [address] Referring Physician Neurology 03/07/24 Gladis Laird LPN 07/19/24 Workday Director Relationship Specialty Start Date End Date Roc Steele MD [address] [place] [address] PCP - General Internal Medicine 09/28/22 Roc Steele MD [address] [place] [address] PCP - ACO Reach 08/30/23 Waqas Dugan DO [address] [place] [address], [place] [address] Referring Physician Neurology 03/07/24 Gladis Laird LPN [address] [place] [address] 07/19/24 Workday Director Relationship Specialty Start Date End Date Roc Steele MD [address] [place] [address] PCP - General Internal Medicine 09/28/22 Roc Steele MD [address] [place] [address] PCP - ACO Reach 08/30/23 Waqas Dugan DO [address] [place] [address] Referring Physician Neurology 03/07/24 Gladis Laird LPN [address] [place] [address] 07/19/24 Workday Director Relationship Specialty Start Date End Date Roc Steele MD [address] [place] [address] PCP - General Internal Medicine 09/28/22 Roc Steele MD [address] [place] [address] PCP - ACO Reach 08/30/23 Waaqs Dugan DO [address] [place] [address] Referring Physician Neurology 03/07/24 Gladis Laird LPN [address] [place] [address] 07/19/24 Workday Director Relationship Specialty Start Date End Date Roc Steele MD [address] [place], [place] [address] PCP - General 10/04/22 FOR RECORDS PERTAINING [...] BE BASED ON THE PRIMARY CLINICAL RECORDS. [facility]. provides no warranty or guarantee of the accuracy or completeness of information in this document.
--- NOTE | 2025-01-23 13:12 | XR_ITS ---
[facility] [place] [id number] Patient Name: LUMA RIBEIRO MRN: [id number] date: 1945 Sex: F Assigned Patient Location: [facility] Current Patient Location: [facility] Accession/Order Number: [id number] Exam Date: 01/23/2025 13:15 Report Date: 01/23/2025 13:46 At the request of: KELLY MOSES DPRen Procedure: XR ankle LT min 3V LEFT ANKLE - 3 views CLINICAL HISTORY: Displaced Bimalleolar Fracture Left Lower Leg COMPARISON: Left ankle 12/27/2024 FINDINGS: Soft tissue swelling and surgical delfin present. Hardware is present involving the distal tibia and fibula without evidence of hardware complication. Fractures are grossly unchanged alignment and healing. XR/XR ankle LT min 3V IMPRESSION: NO HARDWARE COMPLICATION. Impression dictated by: Jayce De La Garza Jr., D.O. 01/23/2025 1:46 PM Dictation Location: [place] [address] Electronically authenticated by: [id number] Y Date: 01/23/2025 13:46
== END 2025-01-23 12:36 | disposition home or self-care (01) ==
LOC: RAD 12:48
PROVIDERS: PCP Internal Medicine; Visit Provider Podiatrist Foot & Ankle Surgery
DX: S82.842D Displaced bimalleolar fracture of left lower leg, subsequent encounter for closed fracture with routine healing (principal)
CPT/HCPCS: 73610

== ENCOUNTER 2025-02-17 10:30 | Outpatient (OUT) | payer MEDICARE, OTHER, SELFPAY ==
--- OUTSIDE RECORDS SUMMARY | 2025-02-17 10:33 | XMS_ITS | Encounter Summary ---
Author Organization [facility] Address [address] [place] [address] Care Team Providers Care All Around Gear Machine Operator Name Role Phone Roc Steele MD Unavailable [phone] Roc Steele MD Primary Care Provider [phone] Roc Steele MD Unavailable [phone] Luis Felipe Dugan DO Unavailable [phone] Raya Holt RN Unavailable [phone] Gladis Laird LPN Unavailable Encounter Details Date Type Department Care Team (Late st Contact Info) Description 03/01/2023 Abstract [facility] [place] [facility] [address] [facility] 110 [place] [address] Aarti Castillo, DIRECTOR OF HOSPITALITY [address] [facility] [address] [place], [place] [id number] Social History Tobacco Use Types Packs/Day Years [...] or ex-partner? No 11/25/2022 Social Connection and Isolation Panel Answer Date Recorded In a typical week, [...] and heating? Not hard at all 11/25/2022 [facility] - Occupational Stress Questionnaire Answer [...] on filedocumented in this encounter Care Teams All Around Gear Machine Operator Relationship Specialty Start Date End Date Roc Steele MD [address] [facility] [address] [place] [address] PCP - ACO Reach 09/22/22 06/29/23 Roc Steele MD [address] [place], [place] [address] PCP - General Internal Medicine 09/28/22 Roc Steele MD [address] [facility] [address] [place], [place] [address] PCP - ACO Reach 08/30/23 Luis Felipe Dugan DO [address] [place] [address] Referring Physician Neurology 03/07/24 Raya Holt, RN [address] [place] [address] Clinical Advocate Family Medicine 06/07/24 07/19/24 Gladis Laird LPN 112 [facility] 110 [place] [address] 07/19/24 documented as of this encounter
--- OUTSIDE RECORDS SUMMARY | 2025-02-17 10:33 | XMS_ITS | Encounter Summary ---
Author Organization [facility] Address [address] [place] [address] Care Team Providers Care Machine Printer Name Role Phone Roc Steele MD Primary Care Provider [phone] Roc Steele MD Unavailable [phone] Luis Felipe Dugan DO Unavailable [phone] Raya Holt RN Unavailable [phone] Gladis Laird LPN Unavailable Encounter Details Date Type Department Care Team (Late st Contact Info) Description 06/10/2024 Orders Only [facility] [place] [facility] [address] [place] [address] [place] [id number] Unallocated, Noms Provider, [address] [place], [place] [id number] Social History Tobacco Use Types Packs/Day Years [...] How often do you attend chur or hindu services? Never 11/25/2022 Do you belong to [...] Recorded Patient Health Questionnaire-2 Score 0 07/06/2023 [facility] [place] of Occupat ional Health - Occupational Stress [...] documented as of this encounter Care Teams Machine Printer Relationship Specialty Start Date End Date Roc Steele MD [address] [facility] [address] [place] [address] PCP - General Internal Medicine 09/28/22 Roc Steele MD [address] [facility] [address] [place] [address] PCP - ACO Reach 08/30/23 Luis Felipe Dugan DO [address] [place] [address] Referring Physician Neurology 03/07/24 Raya Holt, RN [address] [place] [address] Clinical Advocate Family Medicine 06/07/24 07/19/24 Gladis Laird LPN [address] [facility] [address] [place] [address] 07/19/24 documented as of this encounter
--- OUTSIDE RECORDS SUMMARY | 2025-02-17 10:33 | XMS_ITS ---
Author Organization [facility] Address [address] [place] [address] Care Team Providers Care Liquid Flavor Compounder Name Role Phone Roc Steele MD Primary Care Provider [phone] Roc Steele MD Unavailable [phone] Luis Felipe Dugan DO Unavailable [phone] Gladis Laird LPN Unavailable Snf Facility Transitional Care Management Status:Enrolled (Active) Start date:12/29/2024 Enrollment date:01/01/2025 Enrollment reason:Identified using hospital discharge data Overview Patient discharged from [facility] on 12/29. Patient admitted to [facility]. Please contact SNF facility for FRANSISCA (inpt to SNF) within 48 hours. Case Team Name Relationship Phone Doris Longo LPN(Responsible Staff) Licensed Pr actical Nurse [phone] Continued Care and Services Coordination
--- OUTSIDE RECORDS SUMMARY | 2025-02-17 10:33 | XMS_ITS | Encounter Summary ---
Author Organization [facility] Address [address] [place] [address] Care Team Providers Care Tank Cleaning Supervisor Name Role Phone Roc Steele MD Primary Care Provider [phone] Roc Steele MD Unavailable [phone] Luis Felipe Dugan DO Unavailable [phone] Raya Holt RN Unavailable [phone] Gladis Laird LPN Unavailable Encounter Details Date Type Department Care Team (Late st Contact Info) Description 07/11/2024 Abstract [facility] [place] [facility] [address] [facility] [address] [place] [address] Roc Steele MD [address] [facility] [address] [place] [address] Social History Tobacco Use Types Packs/Day Years [...] Recorded Patient Health Questionnaire-2 Score 0 07/11/2024 [facility] - Occupational Stress Questionnaire Answer Date [...] documented as of this encounter Care Teams Tank Cleaning Supervisor Relationship Specialty Start Date End Date Roc Steele MD [address] [facility] [address] [place] [address] PCP - General Internal Medicine 09/28/22 Roc Steele MD [address] [facility] [address] [place] [address] PCP - ACO Reach 08/30/23 Luis Felipe Dugan DO [address] [place] [address] Referring Physician Neurology 03/07/24 Raya Holt, RN [address] [place] [address] Clinical Advocate Family Medicine 06/07/24 07/19/24 Gladis Laird LPN [address] [facility] 110 [place] [address] 07/19/24 documented as of this encounter
--- OUTSIDE RECORDS SUMMARY | 2025-02-17 10:33 | XMS_ITS | Encounter Summary ---
Author Organization [facility] Address [address] [place] [address] Care Team Providers Care Textiles Sales Representative Name Role Phone Roc Steele MD Primary Care Provider [phone] Roc Steele MD Unavailable [phone] Luis Felipe Dugan DO Unavailable [phone] Raya Holt RN Unavailable [phone] Gladis Laird LPN Unavailable Encounter Details Date Type Department Care Team (Late st Contact Info) Description 06/25/2024 Abstract [facility] [place] [facility] [address] [facility] [address] [place] [address] Roc Steele MD [address] [facility] [address] [place] [address] Social History Tobacco Use Types Packs/Day Years [...] any clubs o r organizations such as religion groups, unions, fraternal or athletic groups, or [...] Patient Health Questionnaire-2 Score 0 07/06/2023 [facility] - Occupational Stress Questionnaire Answer Date [...] documented as of this encounter Care Teams Textiles Sales Representative Relationship Specialty Start Date End Date Roc Steele MD [address] [facility] [address] [place] [address] PCP - General Internal Medicine 09/28/22 Roc Steele MD [address] [place] [address] PCP - ACO Reach 08/30/23 Luis Felipe Dugan DO [address] [place] [address] Referring Physician Neurology 03/07/24 Raya Holt, CARMEN [address] [place] [address] Clinical Advocate Family Medicine 06/07/24 07/19/24 Gladis Laird LPN 112 [facility] 110 [place], [place] [address] 07/19/24 documented as of this encounter
--- OUTSIDE RECORDS SUMMARY | 2025-02-17 10:33 | XMS_ITS | Encounter Summary ---
Author Organization [facility] Address [address] [place] [address] Care Team Providers Care Building Materials Sales Attendant Name Role Phone Roc Steele MD Primary Care Provider [phone] Roc Steele MD Unavailable [phone] RitchieBulljulianojean-claude JORDAN Unavailable [phone] Gladis Laidr LPN Unavailable Encounter Details Date Type Department Care Team (Late st Contact Info) Description 12/31/2024 Abstract [facility] [place] [facility] [address] [facility] 110 [place] [address] Roc Steele MD 112 [facility] 110 [place] [address] Social History Tobacco Use Types Packs/Day Years [...] Health Questionnaire-2 Score 0 10/16/2024 [facility] of Occupat ional Health - [...] documented as of this encounter Care Teams Building Materials Sales Attendant Relationship Specialty Start Date End Date Roc Steele MD [address] [facility] 110 [place] [address] PCP - General Internal Medicine 09/28/22 Roc Steele MD [address] [facility] 110 [place] [address] PCP - ACO Reach 08/30/23 Luis Felipe Dugan DO [address] [place] [address] Referring Physician Neurology 03/07/24 Gladis Laird LPN 112 [facility] 110 [place] [address] 07/19/24 documented as of this encounter
--- OUTSIDE RECORDS SUMMARY | 2025-02-17 10:33 | XMS_ITS | Encounter Summary ---
Author Organization [facility] Address [address] [place] [address] Care Team Providers Care Welfare Investigator Name Role Phone Roc Steele MD Unavailable [phone] Roc Steele MD Primary Care Provider [phone] Roc Steele MD Unavailable [phone] Luis Felipe Dugan DO Unavailable [phone] Raya Holt RN Unavailable [phone] Gladis Laird LPN Unavailable Encounter Details Date Type Department Care Team (Late st Contact Info) Description 03/02/2023 Abstract [facility] [place] [facility] [address] [facility] 110 [place] [address] Roc Steele MD [address] [facility] 110 [place], [place] [address] Social History Tobacco Use Types Packs/Day Years [...] and heating? Not hard at all 11/25/2022 [facility] - Occupational Stress Questionnaire Answer Date [...] on filedocumented in this encounter Care Teams Welfare Investigator Relationship Specialty Start Date End Date Roc Steele MD [address] [facility] 110 [place] [address] PCP - ACO Reach 09/22/22 06/29/23 Roc Steele MD [address] [facility] 110 [place], [place] [address] PCP - General Internal Medicine 09/28/22 Roc Steele MD [address] [facility] 110 [place], [place] [address] PCP - ACO Reach 08/30/23 Luis Felipe Dugan DO [address] [place] [address] Referring Physician Neurology 03/07/24 Raya Holt, RN [address] [place] [address] Clinical Advocate Family Medicine 06/07/24 07/19/24 Gladis Laird LPN 112 [facility] 110 [place] [address] 07/19/24 documented as of this encounter
--- OUTSIDE RECORDS SUMMARY | 2025-02-17 10:33 | XMS_ITS | Encounter Summary ---
Author Organization [facility] Address [address] [place] [address] Care Team Providers Care Television Actor Name Role Phone Roc Steele MD Primary Care Provider [phone] Roc Steele MD Unavailable [phone] Luis Felipe Dugan DO Unavailable [phone] Raya Holt RN Unavailable [phone] Gladis Laird LPN Unavailable Encounter Details Date Type Department Care Team (Late st Contact Info) Description 07/11/2024 Abstract [facility] [place] [facility] [address] [facility] 110 [place] [address] Roc Steele MD [address] [facility] 110 [place] [address] Social History Tobacco Use Types Packs/Day Years [...] Questionnaire-2 Score 0 07/11/2024 [facility] - Occupational Stress Questionnaire Answer [...] documented as of this encounter Care Teams Television Actor Relationship Specialty Start Date End Date Roc Steele MD [address] [facility] 110 [place] [address] PCP - General Internal Medicine 09/28/22 Roc Steele MD [address] [facility] 110 [place] [address] PCP - ACO Reach 08/30/23 Luis Felipe Dugan DO [address] [place] [address] Referring Physician Neurology 03/07/24 Raya Holt, RN [address] [place] [address] Clinical Advocate Family Medicine 06/07/24 07/19/24 Gladis Laird LPN [address] [facility] 110 [place] [address] 07/19/24 documented as of this encounter
--- OUTSIDE RECORDS SUMMARY | 2025-02-17 10:33 | XMS_ITS | Encounter Summary ---
Author Organization [facility] Address [address] [place] [address] Care Team Providers Care Manager Cafe Name Role Phone Roc Steele MD Primary Care Provider [phone] Roc Steele MD Unavailable [phone] Luis Felipe Dugan DO Unavailable [phone] Raya Holt RN Unavailable [phone] Gladis Laird LPN Unavailable Encounter Details Date Type Department Care Team (Late st Contact Info) Description 07/02/2024 Abstract [facility] [place] [facility] [address] [facility] 110 [place] [address] Roc Stelee MD [address] [facility] 110 [place] [address] Social History Tobacco Use Types Packs/Day Years [...] Recorded Patient Health Questionnaire-2 Score 0 07/03/2024 [facility] - Occupational Stress Questionnaire Answer Date [...] as of this encounter Care Teams Manager Cafe Relationship Specialty Start Date End Date Roc Steele MD [address] [facility] 110 [place] [address] PCP - General Internal Medicine 09/28/22 Roc Steele MD [address] [facility] 110 [place] [address] PCP - ACO Reach 08/30/23 Luis Felipe Dugan DO [address] [place] [address] Referring Physician Neurology 03/07/24 Raya Holt, RN [address] [place] [address] Clinical Advocate Family Medicine 06/07/24 07/19/24 Gladis Laird LPN [address] [facility] 110 [place] [address] 07/19/24 documented as of this encounter
--- OUTSIDE RECORDS SUMMARY | 2025-02-17 10:34 | XMS_ITS | Encounter Summary ---
Author Organization [facility] Address [address] [place] [address] Care Team Providers Care Fitness Supervisor Name Role Phone Roc Steele MD Unavailable [phone] Roc Steele MD Primary Care Provider [phone] Roc Steele MD Unavailable [phone] Luis Felipe Dugan DO Unavailable [phone] Raya Holt RN Unavailable [phone] Gladis Laird LPN Unavailable Encounter Details [...] and heating? Not hard at all 11/25/2022 [facility] of Occupat ional Health - Occupational Stress [...] EST Narrative 06/22/2023 10:19 [place] [address] Electrocardiograph Report Signed Patient: USHA WALKER MR#: [id number] : 1945 Acct:[id number] Age/Sex: 77 / F ADM Date: 06/22/23 Loc: LAB Attending Dr: ALMAS ALFREDO Ordering Physician: ALMAS ALFREDO Date of Service: 06/22/23 Procedure(s): ECG 12 lead Accession Number(s): [id number] cc: [facility] Test Date: 2023-06-22 Pat Name: USHA WALKER Department: Room: - Gender: Female Senior Wind Energy Consultant: : 1945 Requested By: ALMAS ALFREDO Order Number: [id number] Reading MD: ELLIS DANIELSON Measurements Intervals [place] Rate: 84 P: 56 NE: 169 QRS: -28 QRSD: 118 T: 18 [...] D.O. Signed By: 06/22/23221806/22/232218 DD/ 23 TD/TT: X Ray Technologist: Procedure Note Radiology, Radiologist, MD - 06/22/2023 [place] [address] Electrocardiograph Report Signed Patient: USHA WALKER KMR#: [id number] : 1945cct:[id number] Age/Sex: 77 / FADM Date: 06/22/23 Loc: LAB Attending Dr: ALMAS ALFREDO Ordering Physician: ALMAS ALFREDO Date of Service: 06/22/23 Procedure(s): ECG 12 lead Accession Number(s): [id number] cc: [facility] Test Date: 2023-06-22 Pat Name: USHA WALKER Department: Room: - Gender: Female Senior Wind Energy Consultant: : 1945 Requested By: ALMAS ALFREDO Order Number: [id number] Reading MD: ELLIS DANIELSON Measurements Intervals [place] Rate: 84 P: 56 NE: 169 QRS: -28 QRSD: 118 T: 18 QT: 381 QTc: 452 Interpretive Statements SINUS RHYTHM BORDERLINE LEFT AXIS DEVIATION [QRS AXIS < -20] MODERATE INTRAVENTRICULAR CONDUCTION DELAY [110+ ms QRS DURATION] MODERATE VOLTAGE CRITERIA FOR LVH, CONSIDER NORMAL VARIANT [MEETS CRITERIAIN ONE OF: R(aVL), S(V1), R(V5), R(V5/V6)+S(V1)] Electronically Signed On 06-22-2023 22:18:51 EST by ELLIS DANIELSON Dictated By: Ellis Danielson D.O. Signed By:06/22/23 2219 06/22/232218 DD/ 1424 TD/TT: X Ray Technologist: us Generic External Data Provider [facility] Final Result documented in this encounter Visit Diagnoses Not on filedocumented in this encounter Care Teams Fitness Supervisor Relationship Specialty Start Date End Date Roc Steele MD [address] [facility] 110 [place] [address] PCP - ACO Reach 09/22/22 06/29/23 Roc Steele MD [address] [facility] 110 [place] [address] PCP - General Internal Medicine 09/28/22 Roc Steele MD [address] [facility] 110 [place] [address] PCP - ACO Reach 08/30/23 Luis Felipe Dugan DO [address] [place] [address] Referring Physician Neurology 03/07/24 Raya Holt, CARMEN [address] [place] [address] Clinical Advocate Family Medicine 06/07/24 07/19/24 Gladis Laird LPN [address] [facility] 110 [place] [address] 07/19/24 documented as of this encounter
--- OUTSIDE RECORDS SUMMARY | 2025-02-17 10:34 | XMS_ITS | Encounter Summary ---
Author Organization [facility] Address [address] [place] [address] Care Team Providers Care Publications Inspector Name Role Phone Roc Steele MD Primary Care Provider [phone] Roc Steele MD Unavailable [phone] RitchieBulljulianojean-claude JORDAN Unavailable [phone] Gladis Laird LPN Unavailable Encounter Details Date Type Department Care Team (Late st Contact Info) Description 07/23/2024 Abstract [facility] [place] [facility] [address] [facility] 110 [place] [address] Roc Steele MD 112 [facility] 110 [place] [address] Social History Tobacco Use Types Packs/Day Years [...] How often do you attend chur or congregation services? Never 11/25/2022 Do you [...] documented as of this encounter Care Teams Publications Inspector Relationship Specialty Start Date End Date Roc Steele MD [address] [facility] 110 [place] [address] PCP - General Internal Medicine 09/28/22 Roc Steele MD [address] [facility] 110 [place] [address] PCP - ACO Reach 08/30/23 Luis Felipe Dugan DO [address] [place] [address] Referring Physician Neurology 03/07/24 Gladis Laird LPN 112 [facility] 110 [place] [address] 07/19/24 documented as of this encounter
--- OUTSIDE RECORDS SUMMARY | 2025-02-17 10:34 | XMS_ITS | Encounter Summary ---
Author Organization [facility] Address [address] [place] [address] Care Team Providers Care Switchboard Manager Name Role Phone Roc Steele MD Primary Care Provider [phone] Roc Steele MD Unavailable [phone] RitchieBulljulianojean-claude JORDAN Unavailable [phone] Gladis Laird LPN Unavailable Encounter Details Date Type Department Care Team (Late st Contact Info) Description 11/18/2024 Abstract [facility] [place] [facility] [address] [facility] 110 [place] [address] Roc Steele MD 112 [facility] 110 [place] [address] Social History Tobacco Use Types Packs/Day Years [...] How often do you attend chur or restorationism services? Never 11/25/2022 Do you belong to [...] Recorded Patient Health Questionnaire-2 Score 0 10/16/2024 [facility] of Occupat ional Health - Occupational [...] documented as of this encounter Care Teams Switchboard Manager Relationship Specialty Start Date End Date Roc Steele MD [address] [facility] 110 [place] [address] PCP - General Internal Medicine 09/28/22 Roc Steele MD [address] [facility] 110 [place] [address] PCP - ACO Reach 08/30/23 Luis Felipe Dugan DO [address] [place] [address] Referring Physician Neurology 03/07/24 Gladis Laird LPN 112 [facility] 110 [place] [address] 07/19/24 documented as of this encounter
--- OUTSIDE RECORDS SUMMARY | 2025-02-17 10:34 | XMS_ITS | Encounter Summary ---
Author Organization [facility] Address [address] [place] [address] Care Team Providers Care Program Coordinator Executive Education Name Role Phone Roc Steele MD Unavailable [phone] Roc Steele MD Primary Care Provider [phone] Roc Steele MD Unavailable [phone] Luis Felipe Dugan DO Unavailable [phone] Raya Holt RN Unavailable [phone] Gladis Laird LPN Unavailable Encounter Details [...] often do you attend chur ch or jew services? Never 11/25/2022 Do you [...] and heating? Not hard at all 11/25/2022 [facility] of Occupat ional Health - Occupational Stress [...] PM EST Narrative 06/22/2023 3:19 [place] [address] XRay Report Signed Patient: USHA WALKER MR#: [id number] : 1945 Acct:[id number] Age/Sex: 77 / F ADM Date: 06/22/23 Loc: LAB Attending Dr: ALMAS ALFREDO Ordering Physician: ALMAS ALFREDO Date of Service: 06/22/23 Procedure(s): XR chest 2V Accession Number(s): [id number] cc: ROC STEELE ; ALMAS ALFREDO [place] [id number] Patient Name: USHA WALKER MRN: [facility]:[id number] date: 1945 Sex: F Assigned Patient Location: LAB Current Patient Location: LAB Accession/Order Number: [id number] Exam Date: 06/22/2023 14:05 Report Date: 06/22/2023 [...] Signed By: 06/22/23 1519 DD/ 1517 TD/TT: Division Field Inspector: Procedure Note Radiology, Radiologist, MD - 06/22/2023 The [place] [id number] XRay Report Signed Patient: USHA WALKER KMR#: [id number] : 1945cct:[id number] Age/Sex: 77 / FADM Date: 06/22/23 Loc: LAB Attending Dr: ALMAS ALFREDO Ordering Physician: ALMAS ALFREDO Date of Service: 06/22/23 Procedure(s): XR chest 2V Accession Number(s): [id number] cc: ROC STEELE ; ALMAS ALFREDO [facility] [place] [id number] Patient Name: USHA WALKER MRN: [id number] date: 1945 Sex: F Assigned Patient Location: LAB Current Patient Location: LAB Accession/Order Number: [id number] Exam Date: 06/22/2023 14:05 Report Date: 06/22/2023 [...] M.D. Signed By:06/22/23 1519 DD/ 1517 TD/TT: Division Field Inspector: Generic External Data Provider [facility] Final Result documented in this encounter Visit Diagnoses Not on filedocumented in this encounter Care Teams Program Coordinator Executive Education Relationship Specialty Start Date End Date Roc Steele MD [address] [address] PCP - ACO Reach 09/22/22 06/29/23 Roc Steele MD [address] [facility] 110 [place] [address] PCP - General Internal Medicine 09/28/22 Roc Steele MD [address] [facility] 110 [place] [address] PCP - ACO Reach 08/30/23 Luis Felipe Dugan DO [address] [place] [address] Referring Physician Neurology 03/07/24 Raya Holt, RN [address] [place] [address] Clinical Advocate Family Medicine 06/07/24 07/19/24 Gladis Laird LPN 112 [facility] 110 [place] [address] 07/19/24 documented as of this encounter
--- OUTSIDE RECORDS SUMMARY | 2025-02-17 10:34 | XMS_ITS | Encounter Summary ---
Author Organization [facility] Address [address] [place] [address] Care Team Providers Care Steamer Blocker Name Role Phone Roc Steele MD Primary Care Provider [phone] Roc Steele MD Unavailable [phone] Luis Felipe Dugan DO Unavailable [phone] Gladis Laird LPN Unavailable Encounter Details Date Type Department Care Team (Latest Contact Info) Description 12/03/2024 [facility] [address] [facility] [address] [place] [address] MR LUMBAR SPINE WO CON Social History [...] How often do you attend chur or bahai services? Never 11/25/2022 Do you belong to [...] Recorded Patient Health Questionnaire-2 Score 0 10/16/2024 [facility] - Occupational Stress Questionnaire [...] documented as of this encounter Care Teams Steamer Blocker Relationship Specialty Start Date End Date Roc Steele MD [address] [facility] 110 [place], [place] [address] PCP - General Internal Medicine 09/28/22 Roc Steele MD [address] [facility] 110 [place], [place] [address] PCP - ACO Reach 08/30/23 Luis Felipe Dugan DO [address] [place] [address] Referring Physician Neurology 03/07/24 Gladis Laird LPN 112 [facility] 110 [place] [address] 07/19/24 documented as of this encounter
--- OUTSIDE RECORDS SUMMARY | 2025-02-17 10:34 | XMS_ITS ---
Author Organization [facility] Address [address] [place] [address] Care Team Providers Care Merchandising Execution Associate Name Role Phone Roc Steele MD Primary Care Provider [phone] Roc Steele MD Unavailable [phone] Luis Felipe Dugan DO Unavailable [phone] Gladis Laird LPN Unavailable Chronic Care Management (CCM) Status:Enrolled (Active) Start date:07/30/2016 Enrollment date:07/30/2016 Overview 03/01/23, 9:16 AM - Lydiamonday, LARRY- Patient gives verbal consent to be enrolled in CCM Program and understands there could be a bill for this service. Case Team Name Relationship Phone Gladis Laird LPN(Responsible Staff) [phone] Continued Care and Services Coordination
--- OUTSIDE RECORDS SUMMARY | 2025-02-17 10:34 | XMS_ITS | Encounter Summary ---
Author Organization [facility] Address [address] [place] [address] Care Team Providers Care Cupola Melter Name Role Phone Roc Steele MD Primary Care Provider [phone] Roc Steele MD Unavailable [phone] RitchieBulljulianojean-claude JORDAN Unavailable [phone] Gladis Laird LPN Unavailable Encounter Details Date Type Department Care Team (Late st Contact Info) Description 07/23/2024 Abstract [facility] [place] [facility] [address] [facility] 110 [place] [address] Roc Steele MD 112 [facility] 110 [place] [address] Social History Tobacco Use Types Packs/Day Years [...] 0 07/11/2024 [facility] of Occupat ional Health [...] documented as of this encounter Care Teams Cupola Melter Relationship Specialty Start Date End Date Roc Steele MD [address] [facility] 110 [place] [address] PCP - General Internal Medicine 09/28/22 Roc Steele MD [address] [facility] 110 [place] [address] PCP - ACO Reach 08/30/23 Luis Felipe Dugan DO [address] [place] [address] Referring Physician Neurology 03/07/24 Gladis Laird LPN 112 [facility] 110 [place] [address] 07/19/24 documented as of this encounter
--- OUTSIDE RECORDS SUMMARY | 2025-02-17 10:34 | XMS_ITS | Clinical Summary ---
Author Organization [facility] Address [address] [place] [address], [address] [place] [address] Care Team Providers Care Sealer Sander Name Role Phone Unavailable Primary Care Provider [...]
--- OUTSIDE RECORDS SUMMARY | 2025-02-17 10:35 | XMS_ITS | Encounter Summary ---
Author Organization [facility] Address [address] [place] [address] Care Team Providers Care Office Asst Name Role Phone Roc Steele MD Primary Care Provider [phone] Roc Steele MD Unavailable [phone] RitchieBulljulianojean-claude JORDAN Unavailable [phone] Gladis Laird LPN Unavailable Encounter Details Date Type Department Care Team (Late st Contact Info) Description 07/24/2024 Abstract [facility] [place] [facility] [address] [facility] 110 [place] [address] Roc Steele MD 112 [facility] 110 [place] [address] Social History Tobacco Use Types Packs/Day Years [...] Recorded Patient Health Questionnaire-2 Score 0 07/11/2024 [facility] of Occupat ional [...] documented as of this encounter Care Teams Office Asst Relationship Specialty Start Date End Date Roc Steele MD [address] [facility] 110 [place] [address] PCP - General Internal Medicine 09/28/22 Roc Steele MD [address] [facility] 110 [place] [address] PCP - ACO Reach 08/30/23 Luis Felipe Dugan DO [address] [place] [address] Referring Physician Neurology 03/07/24 Gladis Laird LPN 112 [facility] 110 [place] [address] 07/19/24 documented as of this encounter
--- OUTSIDE RECORDS SUMMARY | 2025-02-17 10:35 | XMS_ITS | Encounter Summary ---
Author Organization [facility] Address [address] [place] [address] Care Team Providers Care Guest Experience Captain Name Role Phone Roc Steele MD Unavailable [phone] Roc Steele MD Primary Care Provider [phone] Roc Steele MD Unavailable [phone] Luis Felipe Dugan DO Unavailable [phone] Raya Holt RN Unavailable [phone] Gladis Laird LPN Unavailable Encounter Details Date Type Department Care Team (Late st Contact Info) Description 12/02/2022 Orders Only [facility] [place] [facility] [address] [facility] [address] [place] [address] A, Unknown Practice [address] [place] [id number] Social History Tobacco Use Types Packs/Day Years [...] often do you attend chur ch or rastafarian services? Never 11/25/2022 Do you [...] on filedocumented in this encounter Care Teams Guest Experience Captain Relationship Specialty Start Date End Date Roc Steele MD [address] [facility] 110 [place] [address] PCP - ACO Reach 09/22/22 06/29/23 Roc Steele MD [address] [facility] 110 [place] [address] PCP - General Internal Medicine 09/28/22 Roc Steele MD [address] [facility] 110 [place] [address] PCP - ACO Reach 08/30/23 Luis Felipe Dugan DO [address] [place] [address] Referring Physician Neurology 03/07/24 Raya Holt, CARMEN [address] [place], [place] [address] Clinical Advocate Family Medicine 06/07/24 07/19/24 Gladis Laird LPN [address] [facility] 110 [place] [address] 07/19/24 documented as of this encounter
--- OUTSIDE RECORDS SUMMARY | 2025-02-17 10:35 | XMS_ITS | Encounter Summary ---
Author Organization [facility] Address [address] [place] [address] Care Team Providers Care Label Designer Name Role Phone Roc Steele MD Unavailable [phone] Roc Steele MD Primary Care Provider [phone] Roc Steele MD Unavailable [phone] Luis Felipe Dugan DO Unavailable [phone] Raya Holt RN Unavailable [phone] Gladis Laird LPN Unavailable Encounter Details Date Type Department Care Team (Late st Contact Info) Description 12/07/2022 Abstract [facility] [address] [facility] 110 [place] [address] Roc Steele MD [address] [facility] 110 [place], [place] [address] Social History Tobacco Use Types Packs/Day Years [...] and heating? Not hard at all 11/25/2022 [facility] - Occupational Stress Questionnaire Answer Date [...] on filedocumented in this encounter Care Teams Label Designer Relationship Specialty Start Date End Date Roc Steele MD [address] [facility] 110 [place] [address] PCP - ACO Reach 09/22/22 06/29/23 Roc Steele MD [address] [place] [address] [place], [place] [address] PCP - General Internal Medicine 09/28/22 Roc Steele MD [address] [facility] 110 [place], [place] [address] PCP - ACO Reach 08/30/23 Luis Felipe Dugan DO [address] [place] [address] Referring Physician Neurology 03/07/24 Raya Holt, RN [address] [place] [address] Clinical Advocate Family Medicine 06/07/24 07/19/24 Gladis Laird LPN 112 [facility] 110 [place] [address] 07/19/24 documented as of this encounter
--- OUTSIDE RECORDS SUMMARY | 2025-02-17 10:35 | XMS_ITS | Encounter Summary ---
Author Organization [facility] Address [address] [place] [address] Care Team Providers Care Supervisor Bonding Name Role Phone Roc Steele MD Unavailable [phone] Roc Steele MD Primary Care Provider [phone] Roc Steele MD Unavailable [phone] Luis Felipe Dugan DO Unavailable [phone] Raya Holt RN Unavailable [phone] Gladis Laird LPN Unavailable Encounter Details Date Type Department Care Team (Late st Contact Info) Description 12/07/2022 Orders Only [facility] [place] [facility] [address] [place] [address] [place] [address] A, Unknown Practice [address] [place] [address] Social History Tobacco Use Types Packs/Day Years [...] 11/25/2022 [facility] [...] filedocumented in this encounter Care Teams Supervisor Bonding Relationship Specialty Start Date End Date Roc Steele MD [address] [place] [address] [place] [address] PCP - ACO Reach 09/22/22 06/29/23 Roc Steele MD [address] [place] 110 [place] [address] PCP - General Internal Medicine 09/28/22 Roc Steele MD [address] [facility] 110 [place] [address] PCP - ACO Reach 08/30/23 Luis Felipe Dugan DO [address] [place] [address] Referring Physician Neurology 03/07/24 Raya Holt, RN [address] [place], [place] [address] Clinical Advocate Family Medicine 06/07/24 07/19/24 Gladis Laird LPN [address] [facility] 110 [place] [address] 07/19/24 documented as of this encounter
--- OUTSIDE RECORDS SUMMARY | 2025-02-17 10:35 | XMS_ITS | Encounter Summary ---
Author Organization [facility] Address [address] [place] [address] Care Team Providers Care Phlebotomist Supervisor/Instructor Name Role Phone Roc Steele MD Primary Care Provider [phone] Roc Steele MD Unavailable [phone] Luis Felipe Dugan DO Unavailable [phone] Raya Holt RN Unavailable [phone] Gladis Laird LPN Unavailable Encounter Details Date Type Department Care Team (Late st Contact Info) Description 05/16/2024 Abstract [facility] [place] [facility] [address] [facility] 110 [place] [address] Roc Steele MD [address] [facility] 110 [place] [address] Social History Tobacco Use Types Packs/Day Years [...] Patient Health Questionnaire-2 Score 0 07/06/2023 [facility] - Occupational Stress Questionnaire Answer [...] as of this encounter Care Teams Phlebotomist Supervisor/Instructor Relationship Specialty Start Date End Date Roc Steele MD [address] [facility] 110 [place] [address] PCP - General Internal Medicine 09/28/22 Roc Steele MD [address] [place] [address] [place] [address] PCP - ACO Reach 08/30/23 Luis Felipe Dugan DO [address] [place] [address] Referring Physician Neurology 03/07/24 Raya Holt, CARMEN [address] [place] [address] Clinical Advocate Family Medicine 06/07/24 07/19/24 Gladis Laird LPN 112 [facility] 110 [place], [place] [address] 07/19/24 documented as of this encounter
--- OUTSIDE RECORDS SUMMARY | 2025-02-17 10:35 | XMS_ITS | Encounter Summary ---
Author Organization [facility] Address [address] [place] [address] Care Team Providers Care Section Gang Name Role Phone Roc Steele MD Unavailable [phone] Roc Steele MD Primary Care Provider Roc Steele MD Unavailable [phone] Luis Felipe Dugan DO Unavailable Raya Holt RN Unavailable Gladis Laird LPN Unavailable Encounter Details Date Type Department Care Team (Late st Contact Info) Description 11/14/2022 Orders Only [facility] [place] [facility] [address] [place] [address] [place] [address] Aarti Castillo NP [address] [place] [place], [place] [phone] Social History Tobacco Use Types Packs/Day Years [...] (11/04/2022 8:25 AM EDT) us Aarti M Anna [facility] ORDERABLES Maggi l Result documented in this encounter Visit Diagnoses Not on filedocumented in this encounter Care Teams Section Gang Relationship Specialty Start Date End Date Roc Steele MD [address] [place] [address] [place] [address] PCP - ACO Reach 09/22/22 06/29/23 Roc Steele MD [address] [place] [address] [place] [address] PCP - General Internal Medicine 09/28/22 Roc Steele MD [address] [facility] 110 [place] [address] PCP - ACO Reach 08/30/23 Luis Felipe Dugan DO [address] [place] [address] Referring Physician Neurology 03/07/24 Raya Holt, RN [address] [place] [address] Clinical Advocate Family Medicine 06/07/24 07/19/24 Gladis Laird LPN [address] [facility] 110 [place] [address] 07/19/24 documented as of this encounter
--- OUTSIDE RECORDS SUMMARY | 2025-02-17 10:35 | XMS_ITS | Encounter Summary ---
Author Organization [facility] Address [address] [place] [address] Care Team Providers Care Desulfurizer Machine Name Role Phone Roc Steele MD Unavailable [phone] Roc Steele MD Primary Care Provider Roc Steele MD Unavailable [phone] Luis Felipe Dugan DO Unavailable Raya Holt RN Unavailable [phone] Gladis Laird LPN Unavailable Encounter Details Date Type Department Care Team (Late st Contact Info) Description 10/07/2022 Orders Only [facility] [place] [facility] [address] [place] [address] [place] [address] Aarti Castillo NP [address] [place] [address] [place], [place] [phone] Social History Tobacco Use Types Packs/Day Years [...] (10/03/2022 9:04 AM EDT) us Aarti M Anna [facility] ORDERABLES Maggi l Result documented in this encounter Visit Diagnoses Not on filedocumented in this encounter Care Teams Desulfurizer Machine Relationship Specialty Start Date End Date Roc Steele MD [address] [place] [address] [place] [address] PCP - ACO Reach 09/22/22 06/29/23 Roc Steele MD [address] [place] [address] [place] [address] PCP - General Internal Medicine 09/28/22 Roc Steele MD [address] [facility] 110 [place] [address] PCP - ACO Reach 08/30/23 Luis Felipe Dugan DO [address] [place] [address] Referring Physician Neurology 03/07/24 Raya Holt, RN [address] [place] [address] Clinical Advocate Family Medicine 06/07/24 07/19/24 Gladis Laird LPN [address] [facility] 110 [place] [address] 07/19/24 documented as of this encounter
--- OUTSIDE RECORDS SUMMARY | 2025-02-17 10:35 | XMS_ITS | Encounter Summary ---
Author Organization [facility] Address [address] [place] [address] Care Team Providers Care Keeler Polygraph Operator Name Role Phone Roc Steele MD Primary Care Provider [phone] Roc Steele MD Unavailable [phone] Luis Felipe Dugan DO Unavailable [phone] Raya Holt RN Unavailable [phone] Gladis Laird LPN Unavailable Encounter Details Date Type Department Care Team (Late st Contact Info) Description 03/06/2024 Orders Only [facility] [address] [facility] [address] [place] [address] Aarti Castillo, VENEER JOINER 112 [facility] 110 [place] [address] Social History Tobacco Use Types Packs/Day [...] Recorded Patient Health Questionnaire-2 Score 0 07/06/2023 [facility] - Occupational Stress Questionnaire Answer Date [...] (07/28/2021 3:41 PM EDT) us Aarti Castillo VENEER JOINER NEUROLOGY ORDERABLES Final R esult documented in this encounter Visit Diagnoses Not on filedocumented in this encounter Additional Health Concerns Assessment Noted Time PHQ-9 Depression Total Score: 0 07/06/19 24 3:00 PM EST documented as of this encounter Care Teams Keeler Polygraph Operator Relationship Specialty Start Date End Date Roc Steele MD 112 [facility] 110 [place] [address] PCP - General Internal Medicine 09/28/22 Roc Steele MD [address] [place] [address] [place], [place] [address] PCP - ACO Reach 08/30/23 Luis Felipe Dugan DO [address] [place] [address] Referring Physician Neurology 03/07/24 Raya Holt, RN [address] [place] [address] Clinical Advocate Family Medicine 06/07/24 07/19/24 Gladis Laird LPN [address] [facility] 110 [place] [address] 07/19/24 documented as of this encounter
--- OUTSIDE RECORDS SUMMARY | 2025-02-17 10:35 | XMS_ITS | Encounter Summary ---
Author Organization [facility] Address [address] [place] [address] Care Team Providers Care Processing Talc And Borate Supervisor Name Role Phone Roc Steele MD Primary Care Provider [phone] Roc Steele MD Unavailable [phone] Luis Felipe Dugan DO Unavailable [phone] Gladis Laird LPN Unavailable Encounter Details Date Type Department Care Team (Late st Contact Info) Description 02/13/2025 Patient Outreach [facility] [address] [place] [address] Doris Longo LPN Social History Tobacco Use [...] week 11/25/2022 How often do you attend [facility] or hindu services? Never 11/25/2022 Do you [...] Recorded Patient Health Questionnaire-2 Score 0 10/16/2024 [facility] of Occupat ional Health [...] Progress Notes * Doris Longo LPN - 02/13/2025 10:46 AM EDT <February 13, 2025, 10:46 - Doris Longo LPN> Called and spoke with Pernell her and he states she is still in the [place] doing better she is still participating in therapy using her walker and her boot when up. Her next follow up appt with ortho is 02/21. No dc date documented in this encounter Plan of Treatment Not on file documented as of this encounter Visit Diagnoses Not on filedocumented in this encounter Additional Health Concerns Assessment Noted Time PHQ-9 Depression Total Score: 0 07/06/19 24 3:00 PM EST documented as of this encounter Care Teams Processing Talc And Borate Supervisor Relationship Specialty Start Date End Date Roc Steele MD 112 [facility] 110 [place] [address] PCP - General Internal Medicine 09/28/22 Roc Steele MD [address] [place] [address] [place] [id number] PCP - ACO Reach 08/30/23 Luis Felipe Dugan DO [address] [place] [address] Referring Physician Neurology 03/07/24 Gladis Laird LPN [address] [place] [address] [place] [id number] 07/19/24 documented as of this encounter
--- OUTSIDE RECORDS SUMMARY | 2025-02-17 10:35 | XMS_ITS | Encounter Summary ---
Author Organization [facility] Address [address] [place] [address] Care Team Providers Care Flake Miller Wheat And Oats Name Role Phone Roc Steele MD Primary Care Provider [phone] Roc Steele MD Unavailable [phone] Luis Felipe Dugan DO Unavailable [phone] Gladis Laird LPN Unavailable Encounter Details Date Type Department Care Team (Late st Contact Info) Description 02/03/2025 Patient Outreach [facility] [address] [place] [address] Doris Longo LPN Social History Tobacco Use [...] week 11/25/2022 How often do you attend [facility] or yazidism services? Never 11/25/2022 Do you [...] Recorded Patient Health Questionnaire-2 Score 0 10/16/2024 [facility] of Occupat ional Health - [...] Progress Notes * Doris Longo LPN - 02/03/2025 12:45 PM EDT <February 03, 2025, 12:54 - Doris Longo LPN> Called [facility] and spoke with therapist and she states that she is doing much better with the 50% weight bearing on the LLL she is able to stand for 7 minutes now she is walking with her walker with therapy. She is 100% wearing her boot when she is up and participating with therapy. No dc date. documented in this encounter Plan of Treatment Not on file documented as of this encounter Visit Diagnoses Not on filedocumented in this encounter Additional Health Concerns Assessment Noted Time PHQ-9 Depression Total Score: 0 07/06/19 24 3:00 PM EST documented as of this encounter Care Teams Flake Miller Wheat And Oats Relationship Specialty Start Date End Date Roc Steele MD [address] [facility] [address] [place] [address] PCP - General Internal Medicine 09/28/22 Roc Steele MD [address] [facility] [address] [place] [address] PCP - ACO Reach 08/30/23 Luis Felipe Dugan DO [address] [place] [address] Referring Physician Neurology 03/07/24 Gladis Laird LPN [address] [facility] 110 [place] [address] 07/19/24 documented as of this encounter
--- OUTSIDE RECORDS SUMMARY | 2025-02-17 10:35 | XMS_ITS | Encounter Summary ---
Author Organization [facility] Address [address] [place] [address] Care Team Providers Care Interventional Radiology Technologist Name Role Phone Roc Steele MD Primary Care Provider [phone] Roc Steele MD Unavailable [phone] Luis Felipe Dugan DO Unavailable [phone] Raya Holt RN Unavailable [phone] Gladis Laird LPN Unavailable Encounter Details Date Type Department Care Team (Late st Contact Info) Description 05/17/2024 Orders Only [facility] [place] [facility] [address] [place] [address] [place] [address] Unallocated, Noms Provider, [address] [place], [place] [address] Social History Tobacco Use Types Packs/Day Years [...] Score 0 07/06/2023 [facility] of Occupat ional Health - Occupational Stress [...] documented as of this encounter Care Teams Interventional Radiology Technologist Relationship Specialty Start Date End Date Roc Steele MD 112 [facility] 110 [place] [address] PCP - General Internal Medicine 09/28/22 Roc Steele MD [address] [place] [address] [place], [place] [address] PCP - ACO Reach 08/30/23 Luis Felipe Dugan DO [address] [place] [address] Referring Physician Neurology 03/07/24 Raya Holt, RN [address] [place], [place] [address] Clinical Advocate Family Medicine 06/07/24 07/19/24 Gladis Laird LPN [address] [place] [address] [place] [address] 07/19/24 documented as of this encounter
--- OUTSIDE RECORDS SUMMARY | 2025-02-17 10:35 | XMS_ITS | Encounter Summary ---
Author Organization [facility] Address [address] [place] [address] Care Team Providers Care Lockstitch Pocket Setter Name Role Phone Roc Steele MD Unavailable [phone] Roc Steele MD Primary Care Provider [phone] Roc Steele MD Unavailable [phone] Luis Felipe Dugan DO Unavailable [phone] Raya Holt RN Unavailable [phone] Gladis Laird LPN Unavailable Encounter Details Date Type Department Care Team (Late st Contact Info) Description 11/23/2022 Orders Only [facility] [place] [facility] [address] [place] [address] [place] [address] A, Unknown Practice [address] [place] [address] Social History Tobacco Use Types Packs/Day Years [...] as of this encounter Functional Status * AUDIT-C Score Answer Date of Assessment Author 1 [...] on filedocumented in this encounter Care Teams Lockstitch Pocket Setter Relationship Specialty Start Date End Date Roc Steele MD [address] [place] [address] [place] [address] PCP - ACO Reach 09/22/22 06/29/23 Roc Steele MD [address] [facility] 110 [place] [address] PCP - General Internal Medicine 09/28/22 Roc Steele MD [address] [facility] 110 [place] [address] PCP - ACO Reach 08/30/23 Luis Felipe Dugan DO [address] [place] [address] Referring Physician Neurology 03/07/24 Raya Holt, RN [address] [place] [address] Clinical Advocate Family Medicine 06/07/24 07/19/24 Gladis Laird LPN [address] [facility] 110 [place] [address] 07/19/24 documented as of this encounter
--- NOTE | 2025-02-17 10:36 | XR_ITS ---
The [address] [address] Patient Name: LUMA RIBEIRO MRN: [id number] date: 1945 Sex: F Assigned Patient Location: [facility] Current Patient Location: [facility] Accession/Order Number: [id number] Exam Date: 02/17/2025 10:50 Report Date: 02/17/2025 13:59 At the request of: KELLY MOSES DPRen Procedure: XR ankle LT min 3V LEFT ANKLE - 3 views CLINICAL DATA: Follow-up ankle fractures COMPARISON: 01/23/2025 Semi weightbearing AP, lateral and oblique views were obtained. There is a lateral plate and multiple screws along the distal fibula. 3 screws cross to the tibia. The hardware appears intact and unchanged from the prior. The lateral skin delfin have been removed. The fractures at the distal fibula and medial malleolus showing no significant interval change. There is no new fracture or dislocation. Mild diffuse soft tissue swelling is seen. XR/XR ankle LT min 3V IMPRESSION: STABLE ANKLE FRACTURES AND FIXATION HARDWARE Impression dictated by: Sushila Zeng M.D. 02/17/2025 1:59 PM Dictation Location: [place] [address] Electronically authenticated by: [id number] Y Date: 02/17/2025 13:59
--- OUTSIDE RECORDS SUMMARY | 2025-02-17 10:36 | XMS_ITS | Encounter Summary ---
Author Organization [facility] Address [address] [place] [address] Care Team Providers Care Warehouse Person Name Role Phone Roc Steele MD Primary Care Provider [phone] Roc Steele MD Unavailable [phone] Luis Felipe Dugan DO Unavailable [phone] Raya Holt RN Unavailable [phone] Gladis Laird LPN Unavailable Encounter Details Date Type Department Care Team (Late st Contact Info) Description 05/21/2024 Abstract [facility] [place] [facility] [address] [facility] 110 [place] [address] Roc Steele MD [address] [facility] [address] [place] [address] Social History Tobacco Use Types Packs/Day Years [...] Score 0 07/06/2023 [facility] - Occupational Stress Questionnaire Answer Date [...] as of this encounter Care Teams Warehouse Person Relationship Specialty Start Date End Date Roc Steele MD [address] [facility] 110 [place] [address] PCP - General Internal Medicine 09/28/22 Roc Steele MD [address] [place] [address] PCP - ACO Reach 08/30/23 Luis Felipe Dugan DO [address] [place] [address] Referring Physician Neurology 03/07/24 Raya Holt, CARMEN [address] [place] [address] Clinical Advocate Family Medicine 06/07/24 07/19/24 Gladis Laird LPN 112 [facility] 110 [place], [place] [address] 07/19/24 documented as of this encounter
--- OUTSIDE RECORDS SUMMARY | 2025-02-17 10:36 | XMS_ITS | Encounter Summary ---
Author Organization [facility] Address [address] [place] [address] Care Team Providers Care Excelsior Cutter Name Role Phone Roc Steele MD Primary Care Provider [phone] Roc Steele MD Unavailable [phone] Luis Felipe Dugan DO Unavailable [phone] Gladis Laird LPN Unavailable Encounter Details Date Type Department Care Team (Late st Contact Info) Description 10/29/2024 Patient Outreach [facility] [address] [place] [address] Gladis Laird LPN [address] [place] [address] Social History Tobacco Use Types Packs/Day Years [...] Recorded Patient Health Questionnaire-2 Score 0 10/16/2024 [facility] of Occupat ional [...] EDT Pts spouse called back for outreach. Central Office Equipment Installer spoke with pts spouse in beginning of phone call. Spouse then handed phone over to pt. Spouse states the is much better at talking on the phone than I am. Pt states her and spouse are not doing to good at this time. Informs television writer that spouse had been in [facility] 10/24 and was sent home 10/25. He did not get any better so spouse had appt in thisoffice today. Diagnosed with cellulitis and Aarti Castillo CAVITY PUMP OPERATOR started spouse on antibiotic and he is to call if things worsen or don't improve after antibiotic completed. Pt states she just gets tired and winded easily. Pt shares she can't walk long without issues. She shares she recently had heartmonitor, stress test and EKG. She turned in heart monitor 10/21 and gets results of these tests from stock shaper 11/15. Pt denies any needs at this time. Central Office Equipment Installer encouraged pt to call if any needs [...] documented as of this encounter Care Teams Excelsior Cutter Relationship Specialty Start Date End Date Roc Steele MD [address] [facility] 110 [place] [address] PCP - General Internal Medicine 09/28/22 Roc Steele MD [address] [facility] 110 [place] [address] PCP - ACO Reach 08/30/23 Luis Felipe Dugan DO [address] [place] [address] Referring Physician Neurology 03/07/24 Gladis Laird LPN [address] [facility] 110 [place] [address] 07/19/24 documented as of this encounter
--- OUTSIDE RECORDS SUMMARY | 2025-02-17 10:36 | XMS_ITS | Encounter Summary ---
Author Organization [facility] Address [address] [place] [address] Care Team Providers Care Power Nut Runner Operator Name Role Phone Roc Steele MD Primary Care Provider [phone] Roc Steele MD Unavailable [phone] Luis Felipe Dugan DO Unavailable [phone] Raya Holt RN Unavailable [phone] Gladis Laird LPN Unavailable Encounter Details Date Type Department Care Team (Late st Contact Info) Description 06/04/2024 Abstract [facility] [place] [facility] [address] [facility] 110 [place] [address] Roc Steele MD [address] [facility] [address] [place] [address] Social History Tobacco Use Types Packs/Day Years [...] How often do you attend chur or pentecostalism services? Never 11/25/2022 Do you [...] Recorded Patient Health Questionnaire-2 Score 0 07/06/2023 [facility] - Occupational Stress Questionnaire Answer [...] Date End Date Roc Steele MD [address] [facility] [address] [place] [address] PCP - General Internal Medicine 09/28/22 Roc Steele MD [address] [place] [address] PCP - ACO Reach 08/30/23 Luis Felipe Dugan DO [address] [place] [address] Referring Physician Neurology 03/07/24 Raya Holt, CARMEN [address] [place] [address] Clinical Advocate Family Medicine 06/07/24 07/19/24 Gladis Laird LPN 112 [facility] 110 [place], [place] [address] 07/19/24 documented as of this encounter
--- OUTSIDE RECORDS SUMMARY | 2025-02-17 10:36 | XMS_ITS | Encounter Summary ---
Author Organization [facility] Address [address] [place] [address] Care Team Providers Care Floor Nurse Name Role Phone Roc Steele MD Primary Care Provider [phone] Roc Steele MD Unavailable [phone] Luis Felipe Dugan DO Unavailable [phone] Raya Holt RN Unavailable [phone] Gladis Laird LPN Unavailable Encounter Details Date Type Department Care Team (Late st Contact Info) Description 05/30/2024 [facility] [place] [facility] [address] [facility] [address] [place] [id number] Roc Steele MD [address] [facility] [address] [place] [address] Social History Tobacco Use Types Packs/Day Years [...] Recorded Patient Health Questionnaire-2 Score 0 07/06/2023 [facility]ational Stress Questionnaire Answer Date [...] documented as of this encounter Care Teams Floor Nurse Relationship Specialty Start Date End Date Roc Steele MD [address] [facility] [address] [place] [address] PCP - General Internal Medicine 09/28/22 Roc Steele MD [address] [facility] [address] [place] [address] PCP - ACO Reach 08/30/23 Luis Felipe Dugan DO [address] [place] [address] Referring Physician Neurology 03/07/24 Raya Holt, CARMEN [address] [place] [address] Clinical Advocate Family Medicine 06/07/24 07/19/24 Gladis Laird LPN 112 [facility] 110 [place], [place] [id number] 07/19/24 documented as of this encounter
--- OUTSIDE RECORDS SUMMARY | 2025-02-17 10:36 | XMS_ITS | Encounter Summary ---
Author Organization [facility] Address [address] [place] [address] Care Team Providers Care Computer Systems Integrator Name Role Phone Roc Steele MD Primary Care Provider [phone] Roc Steele MD Unavailable [phone] Luis Felipe Dugan DO Unavailable [phone] Raya Holt RN Unavailable [phone] Gladis Laird LPN Unavailable Encounter Details Date Type Department Care Team (Late st Contact Info) Description 05/20/2024 Abstract [facility] [place] [facility] [address] [facility] [address] [place] [address] Roc Steele MD [address] [facility] [address] [place] [address] Social History Tobacco Use Types Packs/Day Years [...] 0 07/06/2023 [facility]ational Stress Questionnaire Answer [...] documented as of this encounter Care Teams Computer Systems Integrator Relationship Specialty Start Date End Date Roc Steele MD [address] [facility] [address] [place] [address] PCP - General Internal Medicine 09/28/22 Roc Steele MD [address] [place] [place] [address] PCP - ACO Reach 08/30/23 Luis Felipe Dugan DO [address] [place] [address] Referring Physician Neurology 03/07/24 Raya Holt, CARMEN [address] [place] [address] Clinical Advocate Family Medicine 06/07/24 07/19/24 Gladis Laird LPN 112 [facility] 110 [place], [place] [id number] 07/19/24 documented as of this encounter
--- OUTSIDE RECORDS SUMMARY | 2025-02-17 10:36 | XMS_ITS | Encounter Summary ---
Author Organization [facility] Address [address] [place] [address] Care Team Providers Care Emu Farmer Name Role Phone Roc Steele MD Primary Care Provider [phone] Roc Steele MD Unavailable [phone] Luis Felipe Dugan DO Unavailable [phone] Raya Holt RN Unavailable [phone] Gladis Laird LPN Unavailable Encounter Details Date Type Department Care Team (Late st Contact Info) Description 05/07/2024 Abstract [facility] [place] [facility] [address] [facility] [address] [place] [address] Roc Steele MD [address] [facility] [address] [place] [address] Social History Tobacco Use Types Packs/Day Years [...] Recorded Patient Health Questionnaire-2 Score 0 07/06/2023 [facility]ational Stress Questionnaire Answer Date [...] documented as of this encounter Care Teams Emu Farmer Relationship Specialty Start Date End Date Roc Steele MD [address] [facility] [address] [place] [address] PCP - General Internal Medicine 09/28/22 Roc Steele MD [address] [place] [address] PCP - ACO Reach 08/30/23 Luis Felipe Dugan DO [address] [place] [address] Referring Physician Neurology 03/07/24 Raya Holt, CARMEN [address] [place] [address] Clinical Advocate Family Medicine 06/07/24 07/19/24 Gladis Laird LPN 112 [facility] 110 [place], [place] [id number] 07/19/24 documented as of this encounter
--- OUTSIDE RECORDS SUMMARY | 2025-02-17 10:36 | XMS_ITS | CCD ---
Author Organization [facility] Care Team Providers Care Digital Marketing Program Manager Name Role Phone Tasia Bird Unavailable Unavailable [...] Gladis Unavailable Unavailable Ritchie DO, Christopher Unavailable [phone] Ritchie DO, Christopher Unavailable Laird OPERATOR GROUND BASED AIR DEFENCE, Gladis Unavailable KAMILA PRIDE Attending Unavailable ALEX ALFREDO Attending Unavailable KAMILA PRIDE Attending Unavailable BIGG, AKMILA M Attending Unavailable BIGG, KAMILA M Referring [...] Primary Care Unavailable Waqas Dugan DO Unavailable [phone] Allergies Allergy Classification Reported Allergen(s) Allergy Type Date of Onset Reaction(s) Facility Macrolides (antibiotic) (6 sources) Clarithromycin; Translations: [clarithromycin] Drug Allergy Unknown [facility] Work Phone: Quinolones (antibiotic) (18 sources) moxifloxacin; Translations: [moxifloxacin] Drug Allergy Anaphylaxis, Unknown [facility] Work Phone: (20 sources) Ciprofloxacin; Translations: [ciprofloxacin] Drug Allergy 3 Unknown [facility] (20 sources) Clarithromycin; Translations: [clarithromycin] Drug Allergy 3 Unknown [facility] (4 sources) moxifloxacin; Translations: [Avelox] Drug Allergy 3 Anaphylaxis [facility] Repository (20 sources) moxifloxacin; Translations: [moxifloxacin] Drug Allergy 3 Anaphylaxis, [facility] Work Phone: (1 source) Ciprofloxacin Drug Allergy 3 [facility] Repository (1 source) Sulfonamides (Antibiotic) Drug allergy (disorder) 3 [facility] Repository (20 sources) Sulfanilamide Allergy to substance 3 [facility] (8 sources) Sulfonamides (Antibiotic); Translations: [SULFA (SULFONAMIDE ANTIBIOTICS)] Propensity to adverse reactions [address] [facility] Work Phone: Medications Current Medications Medication Drug Class(es) Dates Sig (Normalized) Sig (Original) acetaminophen 325 mg / HYDROcodone bitartrate 5 mg oral tablet (20 sources) Opioid Agonist Start: 02-29-2024 End: 11-17-2024 take 1 tablet by mouth every four hours for pain HYDROcodone-acetam inophen ([place]) 5-325 MG tablet Indications: Lumbosacral spondylosis without myelopathy Take 1 tablet by mouth every 4 (four) hours if needed for moderate pain or severe pain 180 tablet 10/18/2024 11/17/2024 Active [id number] 200 actuat albuterol 0.09 mg/actuat metered dose [...] day at the same time. 0 Active jjxatgffqoza-Jl-syfi-mineral s tablet (1 source) take 1 tablet by mouth once daily wlrrjxmpkamf-Xl-czyf-minerals tablet Take 1 tablet by mouth once [...] 08-01-2024 Chronic Other aftercare (1 source) Other continuous churn buttermaker (current) drug therapy; Translations: [OTH HANDYPERSON CURRENT DRUG THERAPY] Onset: 3 Episodic Other [...] Facility XR ANKLE LT MIN [address] [place] [address] XRay Report Signed Patient: LUMA RIBEIRO MR#: [id number] : 1945 Acct:[id number] Age/Sex: 79 / F ADM Date: 01/23/25 Loc: RAD Attending Dr: Kelly Moses D.P.M. Ordering Physician: Kelly Moses D.P.M. Date of Service: 01/23/25 Procedure(s): XR ankle LT min 3V Accession Number(s): [id number] cc: ROC STEELE ; Kelly Moses D.P.M. The [place] [address] Patient Name: LUMA RIBEIRO MRN: [facility]:[id number] date: 1945 Sex: F Assigned Patient Location: [facility] Current Patient Location: [facility] Accession/Order Number: [id number] Exam Date: 01/23/2025 13:15 Report Date: 01/23/2025 [...] Jr. DLazarus 01/23/2025 1:46 PM Dictation Location: [place] [address] Electronically authenticated by: [id number] Y Date: 01/23/2025 13:46 Dictated By: Jayce De La Garza M.D. 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 Ordering Physician: Kelly Moses D.P.M. Date of Service: 01/23/25 Procedure(s): XR ankle LT min 3V Accession Number(s): [id number] cc: ROC STEELE ; Kelly Moses D.P.M. The [place] [id number] Patient Name: LUMA RIBEIRO MRN: [id number] date: 1945 Sex: F Assigned Patient Location: [facility] Current Patient Location: [facility] Accession/Order Number: [id number] Exam Date: 01/23/2025 13:15 Report Date: 01/23/2025 [...] Ibarra Jr.OKirti 01/23/2025 1:46 PM Dictation Location: [place] [address] Electronically authenticated by: [id number] Y Date: 01/23/2025 13:46 Dictated By: Jayce De La Garza M.D. Signed By: 01/23/25 1349 DD/ 1346 TD/TT: [employer]person [employer]: [facility] Radiology Study observation (narrative) [facility] XR ANKLE LT MIN 3VOrdered By : Radiologist Radiology on 01-23-2025 [facility] Work Phone: MR [place] [address] Magnetic Resonance Report Signed Patient: LUMA RIBEIRO MR#: [id number] : 1945 Acct:[id number] Age/Sex: 78 / F ADM Date: 10/01/24 Loc: MRI Attending Dr: Daron Sanchez M.D. Ordering Physician: Daron Sanchez M.D. Date of Service: 10/01/24 Procedure(s): MR lumbar spine wo con Accession Number(s): [id number] cc: ROC STEELE ; Daron Sanchez M.D. [address] [address] Patient Name: LUMA RIBEIRO MRN: [id number] date: 1945 Sex: F Assigned Patient Location: MRI Current Patient Location: MRI Accession/Order Number: [id number] Exam Date: 10/01/2024 14:28 Report Date: 10/01/2024 [...] Bach M.D. 10/01/2024 2:34 PM Dictation Location: [place] [address] Electronically authenticated by: [id number] Y Date: 10/01/2024 14:34 Dictated By: Srinivasa Bach M.D. Signed By: 10/01/24 1437 DD/ 1434 TD/TT: [employer]person [employer]: [facility] Radiology, Radiologmekhi salguero MD - 10/01/2024 [place] [address] Magnetic Resonance Report Signed Patient: LUMA RIBEIRO MR#: [id number] : 1945 Acct:[id number] Age/Sex: 78 / F ADM Date: 10/01/24 Loc: MRI Attending Dr: Daron Sanchez M.D. Ordering Physician: Daron Sanchez M.D. Date of Service: 10/01/24 Procedure(s): MR lumbar spine wo con Accession Number(s): [id number] cc: ROC STEELE ; Daron Sanchez M.D. The [place] [id number] Patient Name: LUMA RIBEIRO MRN: [facility]:[id number] date: 1945 Sex: F Assigned Patient Location: MRI Current Patient Location: MRI Accession/Order Number: [id number] Exam Date: 10/01/2024 14:28 Report Date: 10/01/2024 [...] Bach M.D. 10/01/2024 2:34 PM Dictation Location: [place] [address] Electronically authenticated by: [id number] Y Date: 10/01/2024 14:34 Dictated By: Srinivasa Bach M.D. Signed By: 10/01/24 1437 DD/ 143 TD/TT: [employer]person [employer]: [facility] Radiology Study observation (narrative) [facility] MR LUMBAR SPINE WO CONOrdere d By: Radiologist Radiology on 10-01-2024 [facility] Work Phone: NUCLEAR STRESS TESTon 2024 NUCLEAR STRESS TEST Interpreted By: David Walls, Lottie Inman STUDY: MYOCARDIAL PERFUSION STRESS TEST WITH LEXISCAN Performing facility: [facility], [address] [place] [address], [address], [address] Provider: Amber Hawley MD, FACC PCP: [...] Denies smoking. COMPARISON: No comparison. ACCESSION NUMBER(S): [id number] ORDERING CLINICIAN: AMBER HAWLEY TECHNIQUE: TWO DAY [...] David Castle 09/19/2024 3:00 PM Dictation workstation: [id number] [facility] TRANSTHORACIC ECHO (TTE) COM PLETEon 09-18-2024 TRANSTHORACIC ECHO (TTE) COMPLETE [address], [address] [place] [address] TRANSTHORACIC ECHOCARDIOGRAM REPORT Patient Name: LUMA RIBEIRO Reading Physician: [id number] David Castle MD, [facility] Study Date: 09/18/2024 Ordering Provider: [id number] AMBER HAWLEY MRN/PID: [id number] Fellow: Nurse: Date of /Age: 7 1945 Fig Caprifier: Viry ely RDCS, RVT Gender Assigned at F Additional Staff: : Height: 162.56 cm Admit Date: Weight: 122.02 kg Admission Status: Outpatient BSA / BMI: 2.22 m2 / 46.17 Department Location: [facility] kg/m2 [place] Blood Pressure: 124 /86 mmHg Study Type: TRANSTHORACIC ECHO (TTE) COMPLETE Diagnosis/ICD: Supraventricular tachycardia-I47.1; Abnormal electrocardiogram [ECG] [EKG]-R94.31; Palpitations-R00.2 Indication: Edema, HTN, Hyperlipidemia, Carotid Stenosis, CARO, CKD-Stage III, Morbid Obesity CPT Codes: Echo Complete w Full Doppler-08273 Study Detail: The following Echo studies were [...] Rate: 338.04 c (more content not included)... [facility] US Heart TransthoracicOrdere d By: David Castle on 09-18-2024 Aortic Valve Area by Continuity of Peak Velocity 2.65 cm2 [facility] Work Phone: 00 Aortic Valve Area by Continuity of VTI 1.93 cm2 [facility] Work Phone: 00 AV mn grad 7 mmHg [facility] Work Phone: 00 AV pk grad 13 mmHg [facility] Work Phone: AV pk malinda 1.81 m/s [facility] Work Phone: LA vol index A/L 44.1 ml/m2 [facility] Work Phone: 00 LV A4C EF 42.7 [facility] Work Phone: 00 LV Biplane EF 36 % [facility] Work Phone: 00 LV EF 63 % [facility] Work Phone: 00 LVIDd 4.66 cm [facility] Work Phone: LVOT diam 2.27 cm [facility] Work Phone: MV avg E/e' ratio 26.81 [facility] Work Phone: MV E/A ratio 0.79 [facility] Work Phone: RV free wall pk S' 15.98 cm/s [facility] Work Phone: [facility] Work Phone: US Heart Transthoracicon [facility] [address] [place] [address], [address], [place] [address] TRANSTHORACIC ECHOCARDIOGRAM REPORT Patient Name: LUMA Mahnaz RIBEIRO Reading Physician: [id number] David Castle MD, [facility] Study Date: 09/18/2024 Ordering Provider: [id number] AMBER HAWLEY MRN/PID: [id number] Fellow: Nurse: Date of /Age: 7 1945 Fig Caprifier: Viry ely RDCS, RVT Gender Assigned at F Additional Staff: : Height: 162.56 cm Admit Date: Weight: 122.02 kg Admission Status: Outpatient BSA / BMI: 2.22 m2 / 46.17 Department Location: [facility] kg/m2 [place] Blood Pressure: 124 /86 mmHg Study Type: TRANSTHORACIC ECHO (TTE) COMPLETE Diagnosis/ICD: Supraventricular tachycardia-I47.1; Abnormal electrocardiogram [ECG] [EKG]-R94.31; Palpitations-R00.2 Indication: Edema, HTN, Hyperlipidemia, Carotid Stenosis, CARO, CKD-Stage III, Morbid Obesity CPT Codes: Echo Complete w Full Doppler-03255 Study Detail: The following Echo studies were [...] included)... David Mortensen M D - 09/18/[address], [address] [address] TRANSTHORACIC ECHOCARDIOGRAM REPORT Patient Name: LUMA Deal Physician: [id number] David Castle MD, [facility] Study Date: 09/18/2024 Ordering Provider: [id number] AMBER HAWLEY MRN/PID: [id number] Fellow: Nurse: Date of /Age: 7 1945 Fig Caprifier: Viry ely RDCS, RVT Gender Assigned at F Additional Staff: : Height: 162.56 cm Admit Date: Weight: 122.02 kg Admission Status: Outpatient BSA / BMI: 2.22 m2 / 46.17 Department Location: [facility] kg/m2 [place] Blood Pressure: 124 /86 mmHg Study Type: TRANSTHORACIC ECHO (TTE) COMPLETE Diagnosis/ICD: Supraventricular tachycardia-I47.1; Abnormal electrocardiogram [ECG] [EKG]-R94.31; Palpitations-R00.2 Indication: Edema, HTN, Hyperlipidemia, Carotid Stenosis, CARO, CKD-Stage III, Morbid Obesity CPT Codes: Echo Complete w Full Doppler-28574 Study Detail: The following Echo studies were [...] Index: 0.48 AORTI (more content not included)... [facility] Work Phone: LIPID PANEL, STANDARD - Cholesterol [Mass/Vol] 153 mg/dL Normal <200 [facility] Comment on above: Order Comment: COLLE CTION KIT GIVEN TO PATIENT. PATIENT ADVISED TO RETURN. Performed By: #### 7 600 #### [facility] [address], [address] [place], [place] [address] Power Tong Operator: Bryce Larsen MD Cholesterol in HDL [Mass/Vol] 49 mg/dL Low > OR = 50 [facility] Comment on above: Order Comment: COLLE CTION KIT GIVEN TO PATIENT. PATIENT ADVISED TO RETURN. Performed By: #### 7 600 #### [facility] [address], [address] [place], [place] [phone] Power Tong Operator: Bryce Larsen MD Cholesterol in LDL [Mass/Vol] [...] LDL-C. Mike SS et al. MARGO. 2013;310(19): 8554-8923 (http://education.JumpHawk.CHiWAO Mobile App/faq/OGH926) Performed By: #### 7 600 #### [facility] [address], [address] [place] [phone] Power [employer] Operator: Bryce Larsen MD Cholesterol.total/Cho lesterol in HDL [Mass ratio] 3.1 {ratio} Normal <5.0 [facility] Comment on above: Order Comment: COLLE CTION KIT GIVEN TO PATIENT. PATIENT ADVISED TO RETURN. Performed By: #### 7 600 #### [facility] [address], [address] [place] [address] Power Tong Operator: Bryce Larsen MD NON HDL CHOLESTEROL 104 [...] By: #### 7 600 #### [facility] [address], [address] [place] [address] Power Tong Operator: Bryce Larsen MD Triglyceride [Mass/Vol] 121 mg/dL Normal <150 [facility] Comment on above: Order Comment: COLLE CTION KIT GIVEN TO PATIENT. PATIENT ADVISED TO RETURN. Performed By: #### 7 600 #### [facility] [address], [address] [place] [address] Power Tong Operator: Bryce Larsen MD DEXA BONE DENSITYon 07-27-19 [...] Available MM TOMOSYNTHESIS SCREENING B Ion 07-18-2024 [place] [address] Mammography Report Signed Patient: LUMA RIBEIRO MR#: [id number] : 1945 Acct:[id number] Age/Sex: 78 / F ADM Date: 07/17/24 Loc: MAMMO Attending Dr: ROC STEELE Ordering Physician: ROC STEELE Results: Date of Service: 07/17/24 Follow Up: Procedure(s): MM tomosynthesis screening BI Accession Number(s): [id number] cc: ROC STEELE Patient Name: LUMA RIBEIRO MR#: [id number] : 1945 Exam Date: 07/17/2024 Ordering Doctor: [...] breast cancer at age 61. LOCATION: [facility] BREAST COMPOSITION: There are scattered areas [...] Signed By: 07/18/24 1620 DD/ 1619 TD/TT: Salesperson [employer]obiles: [facility] Radiology, Radiologi MD noemy - 07/18/2024 [place] [address] Mammography Report Signed Patient: LUMA RIBEIRO MR#: [id number] : 1945 Acct:[id number] Age/Sex: 78 / F ADM Date: 07/17/24 Loc: MAMMO Attending Dr: ROC STEELE Ordering Physician: ROC STEELE Results: Date of Service: 07/17/24 Follow Up: Procedure(s): MM tomosynthesis screening BI Accession Number(s): [id number] cc: MARIKA STEELEEL Patient Name: LUMA RIBEIRO MR#: [id number] : 1945 Exam Date: 07/17/2024 Ordering Doctor: [...] breast cancer at age 61. LOCATION: [facility] BREAST COMPOSITION: There are scattered areas [...] De La Garza M.D. Signed By: 07/18/24 1622 DD/ 1619 TD/TT: [employer]person [employer]: [facility] Radiology Study observation (narrative) [facility] MM TOMOSYNTHESIS SCREENING B IOrdered By: Radiologist Radiology on 07-18-2024 [facility] Work Phone: ECG 12 Leadon 07-15-2024 [facility] Work Phone: [facility] Work Phone: Laboratory - Hematology and Cell countson 07-11-2024 HbA1c (Bld) [Mass fraction] 6.1 % [facility] No Panel Informationon 07-11 [facility] XR HIP 2 OR 3 VW RIGHTon [...] #### 1 0231, 622 #### [facility] [place] [address] Power Tong Operator: Bryce Larsen MD Albumin/Globulin [Mass ratio] 1.7 {ratio} Normal 1.0-2.5 [facility] Comment on above: Performed By: #### 1 023, 622 #### [facility] [place] [address] Power Tong Operator: Bryce Larsen MD ALP [Catalytic activity/Vol] 99 U/L Normal 37-153 [facility] Comment on above: Performed By: #### 1 0231, 622 #### [facility] [place] [address] Power Tong Operator: Bryce Larsen MD ALT [Catalytic activity/Vol] 8 U/L Normal 6-29 [facility] Comment on above: Performed By: #### 1 023, 622 #### [facility] [place] [address] Power Tong Operator: Bryce Larsen MD AST [Catalytic activity/Vol] 19 U/L Normal 10-35 [facility] Comment on above: Performed By: #### 1 0231, 622 #### [facility] [place] [address] Power Tong Operator: Bryce Larsen MD Bilirubin [Mass/Vol] 0.6 mg/dL Normal 0.2-1.2 [facility] Comment on above: Performed By: #### 1 230, 622 #### [facility] of [place] [address] Power Tong Operator: Bryce Larsen MD Calcium [Mass/Vol] 8.9 mg/dL Normal 8.6-10.4 [facility] Comment on above: Performed By: #### 1 230, 622 #### [facility] [place] [address] Power Tong Operator: Bryce Larsen MD Chloride [Moles/Vol] 104 mmol/L Normal 98-110 [facility] Comment on above: Performed By: #### 1 230, 622 #### [facility] [place] [address] Power Tong Operator: Bryce Larsen MD CO2 [Moles/Vol] 27 mmol/L Normal 20-32 [facility] Comment on above: Performed By: #### 1 230, 622 #### [facility] [place] [address] Power Tong Operator: Bryce Larsen MD Creatinine [Mass/Vol] 1.11 mg/dL High 0.60-1.[address] [facility] Comment on above: Performed By: #### 1 230, 622 #### [facility] of [place] [address] Power Tong Operator: Bryce Larsen MD GFR/1.73 sq M.predicted among non-blacks MDRD (S/P/Bld) [Vol rate/Area] 51 mL/min/{1.73_m2} Low > OR = 60 [facility] Comment on above: Performed By: #### 1 230, 622 #### [facility] [place] [address] Power Tong Operator: Bryce Larsen MD Globulin (S) [Mass/Vol] 2.3 g/dL Normal 1.9-3.7 [facility] Comment on above: Performed By: #### 1 230, 622 #### [facility] [place] [address] Power Tong Operator: Bryce Larsen MD Glucose [Mass/Vol] 145 mg/dL High 65-139 [facility] Comment on above: Result Comment: Non-fasting reference interval For someone without known diabetes, a glucose value >125 mg/dL indicates that they may have diabetes and this should be confirmed with a follow-up test. Performed By: #### 1 230, 622 #### [facility] [place] [address] Power Tong Operator: Bryce Larsen MD Potassium [Moles/Vol] 4.2 mmol/L Normal 3.5-5.[address] [facility] [address] [facility] Comment on above: Performed By: #### 1 230, 622 #### [facility] [place] [address] Power Tong Operator: Bryce Larsen MD Protein [Mass/Vol] 6.3 g/dL Normal 6.1-8.1 [facility] Comment on above: Performed By: #### 1 230, 622 #### [facility] [place] [address] Power Tong Operator: Bryce Larsen MD Sodium [Moles/Vol] 138 mmol/L Normal 135-146 [facility] Comment on above: Performed By: #### 1 230, 622 #### [facility] [place] [address] Power Tong Operator: Bryce Larsen MD Urea nitrogen [Mass/Vol] 19 mg/dL Normal 7-25 [facility] Comment on above: Performed By: #### 1 230, 622 #### [facility] [place] [address] Power Tong Operator: Bryce Larsen MD Urea nitrogen/Creatinine [Mass ratio] 17 mg/mg Normal 6-22 [facility] Comment on above: Performed By: #### 1 0231, 622 #### [facility] of [address], [address] [place] [address] Power Tong Operator: Bryce Larsen MD MAGNESIUMon 07-04-2024 Magnesium [Mass/Vol] 2.0 mg/dL Normal 1.5-2.5 Ques t [facility] Comment on above: Order Comment: FASTI NG:NO FASTING: NO Performed By: #### 1 0231, 622 #### [facility] of [address], [address] [place] [address] Power Tong Operator: Bryce Larsen MD B TYPE NATRIURETIC PEPTIDE [...] #### 3 7386 #### [facility] of [address], [address] [place] [address] Power Tong Operator: Bryce Larsen MD [facility] METABOLIC PANE [facility] 05-23-2024 Albumin [Mass/Vol] 3.6 g/dL Normal 3.6-5.1 [facility] Comment on above: Performed By: #### 6 , 73578 #### [facility] of [address], [address] [place] [address] Power Tong Operator: Bryce Larsen MD Albumin/Globulin [Mass ratio] 1.3 {ratio} Normal 1.0-2.5 [facility] Comment on above: Performed By: #### 6 , 64312 #### [facility] of [address], [address] [place] [address] Power Tong Operator: Bryce Larsen MD ALP [Catalytic activity/Vol] 87 U/L Normal 37-153 [facility] Comment on above: Performed By: #### 6 , 82813 #### [facility] of [address], [address] [place] [address] Power Tong Operator: Bryce Larsen MD ALT [Catalytic activity/Vol] 15 U/L Normal 6-29 [facility] Comment on above: Performed By: #### 6 22, 87359 #### [facility] [place] [address] Power Tong Operator: Bryce Larsen MD AST [Catalytic activity/Vol] 31 U/L Normal 10-35 [facility] Comment on above: Performed By: #### 6 22, 13954 #### [facility] of [place] [address] Power Tong Operator: Bryce Larsen MD Bilirubin [Mass/Vol] 0.5 mg/dL Normal 0.2-1.2 [facility]ues t [facility] Comment on above: Performed By: #### 6 , 29314 #### [facility] [place] [address] Power Tong Operator: Bryce Larsen MD Calcium [Mass/Vol] 9.1 mg/dL Normal 8.6-10.4 [facility] Comment on above: Performed By: #### 6 22, 01706 #### [facility] of [place] [address] Power Tong Operator: Bryce Larsen MD Chloride [Moles/Vol] 103 mmol/L Normal 98-110 Ques t [facility] Comment on above: Performed By: #### 6 , 83820 #### [facility] of [place] [address] Power Tong Operator: Bryce Larsen MD CO2 [Moles/Vol] 27 mmol/L Normal 20-32 [facility] Comment on above: Performed By: #### 6 22, 48006 #### [facility] [place] [address] Power Tong Operator: Bryce Larsen MD Creatinine [Mass/Vol] 1.04 mg/dL High 0.60-1.[address] [facility] Comment on above: Performed By: #### 6 , 45513 #### [facility] [place] [address] Power Tong Operator: Bryce Larsen MD GFR/1.73 sq M.predicted among non-blacks MDRD (S/P/Bld) [Vol rate/Area] 55 mL/min/{1.73_m2} Low > OR = 60 [facility] Comment on above: Performed By: #### 6 , 78475 #### [facility] [place] [address] Power Tong Operator: Bryce Larsen MD Globulin (S) [Mass/Vol] 2.7 g/dL Normal 1.9-3.7 [facility] Comment on above: Performed By: #### 6 , 45337 #### [facility] [place] [address] Power Tong Operator: Bryce Larsen MD Glucose [Mass/Vol] 73 mg/dL Normal 65-139 [facility] Comment on above: Result Comment: Non-fasting reference interval Performed By: #### 6 , 09341 #### [facility] [place] [address] Power Tong Operator: Bryce Larsen MD Potassium [Moles/Vol] 4.7 mmol/L Normal 3.5-5.[address] [facility] Comment on above: Performed By: #### 6 , 84019 #### [facility] [place] [address] Power Tong Operator: Bryce Larsen MD Protein [Mass/Vol] 6.3 g/dL Normal 6.1-8.1 [facility] Comment on above: Performed By: #### 6 , 67396 #### [facility] [place] [address] Power Tong Operator: Bryce Larsen MD Sodium [Moles/Vol] 137 mmol/L Normal 135-146 [facility] Comment on above: Performed By: #### 6 , 77674 #### [facility] of [address] Power Tong Operator: Bryce Larsen MD Urea nitrogen [Mass/Vol] 15 mg/dL Normal 7-25 [facility] Comment on above: Performed By: #### 6 , 76642 #### [facility] [address], [address] [place] [address] Power Tong Operator: Bryce Larsen MD Urea nitrogen/Creatinine [Mass ratio] 14 mg/mg Normal 6-22 [facility] Comment on above: Performed By: #### 6 , 73290 #### [facility] [address], [address] [place] [address] Power Tong Operator: Bryce Larsen MD MAGNESIUMon 05-23-2024 Magnesium [Mass/Vol] 1.9 mg/dL Normal 1.5-2.5 Ques t [facility] Comment on above: Order Comment: FASTI NG:NO FASTING: NO Performed By: #### 6 , 74714 #### [facility] [address], [address] [place] [address] Power Tong Operator: Bryce Larsen MD ALL BASIC METABOLIC PANELon 05-16-2024 Anion gap [Moles/Vol] 12 mmol/L [facility] Calcium [Mass/Vol] 9 mg/dL 8.5 - 10. 1 mg/dL [facility] Chloride [Moles/Vol] 98 mmol/L 98 - 10 7 mmol/L [facility] CO2 [Moles/Vol] 29.6 mmol/L 21.0 - 32.0 mmol/L [facility] Creatinine [Mass/Vol] 1.42 mg/dL High 0.55 - 1.02 mg/dL [facility] GFR/1.73 sq M.predicted CKD-EPI (S/P/Bld) [Vol rate/Area] 43 Low >=60 mL/min/1.7 3m 2 [facility] Glucose [Mass/Vol] 74 mg/dL 74 - 106 mg/dL [facility] Interpretation and review of laboratory results Abnormal [facility] Potassium [Moles/Vol] 3.6 mmol/L 3.5 - 5.1 mmol/L [facility] Sodium [Moles/Vol] 136 mmol/L 136 - 145 mmol/L [facility] TBH EGFR-NON AF BURKINAN 36 Low >=60 mL/min/1.7 3m 2 [facility] Urea nitrogen [Mass/Vol] 36 mg/dL High 7.0 - 18.0 mg/dL [facility] Urea nitrogen/Creatinine [Mass ratio] 25.4 mg/mg [facility] XR chest 2V*on 04-29-2024 XR chest 2V* [facility] Main [place] [address] [place], [place] [id number] XRay Report Signed Patient: Luma Ribeiro MR#: [id number] : 1945 Acct:[id number] Age/Sex: 78 / F ADM Date: 04/29/24 Loc: XDUCLY Room: Type: [facility] 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 APRN Copies [...] R Christopher M.D.04/29/2024 4:00 PM Dictation Location: [facility]--19 Transcribed By: [facility] 04/29/24 1600 Dictated By: Jose R Christophre DO 04/29/24 1559 Signed By: 04/29/24 1600 Normal [facility] XR CHEST [...] de hand and wrist EMG 1 Extremeityon [facility] NVC 7-8 Nerveson 03-07-2024 [facility] Established Visit (Orthopaed ic Surgery)on 10-04-2022 Established [...] Complaint RT shoulder Ongoing issue 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 Distal pulses and sensation are intact. Limited forward flexion to about 25 degrees lateral abduction to about 15 unable to perform any external rotation but internal he can get to the small of her back. Her exam does not allow for much of a true Neer's Shelby or [place]'s test. Diagnostics: See dictated report from today, previous outside CT scan report of the humerus reviewed, and is available in the [facility] chart. 1 Procedure: None Assessment: Chronic shoulder [...] the patient's CT scan report reviewed in [facility] chart Other 1 than the anterior medial [...] grammatical areas may persist related to the [employer] software (more content not included)... Normal [facility] 10-04-2022 XR Shoulder 2 Views Normal [facility] Work Phone: SHOULDER, CMPLT, MIN 2 VIEWS on 10-04-2022 SHOULDER, CMPLT, MIN 2 VIEWS Patient Name: LUMA RIBEIRO STUDY: SHOULDER, CMPLT, MIN 2 VIEWS; Right; 10/04/2022 1:49 pm INDICATION: pain M25.519: Shoulder pain. ACCESSION NUMBER(S): [id number] ORDERING CLINICIAN: TANIYA AL FINDINGS: Multiple views [...] Electronically signed by: TANIYA AL MD Normal [facility] CT HUMERUS RIGHT W/O CONTRAS Minesh 09-12-2022 [...] Pernell Wiley on 09/12/2022 1127 Normal [facility] XR Chest 2 Views*on 09-13-19 XR [...] Pernell Wiley on 09/12/2022 1101 Normal [facility] XR CHEST 2 Von 09-05-2022 [...] ISAEL HANSEN Date: 2022-09-05 15:11 Normal [facility] XR KUB 1 VIEWon 09-05-2022 XR [...] ISAEL HANSEN Date: 2022-09-05 15:10 Normal [facility] AMYLASEon 09-03-2022 Amylase [Catalytic activity/Vol] 34 U/L Normal 25-115 [facility] Comment on above: Performed By: #### L IPA, CMP, CMADM, BNP, GRACIELA #### [facility] [address] [address] [address] Yonny Meza BNPon 09-03-2022 Natriuretic peptide B (Bld) [Mass/Vol] 241.0 pg/mL Normal <=1,800.0 [facility] Comment on above: Performed By: #### L IPA, CMP, CMADM, BNP, GRACIELA #### [facility] [address] [place] [address] Dr. Yonny Meza CARDIAC SRINIVASA ADMITon 023 CK [Catalytic activity/Vol] 154 U/L Normal 26-192 [facility] Comment on above: Performed By: #### L IPA, CMP, CMADM, BNP, GRACIELA #### [facility] [address] [address] [address] Yonny Meza CK.MB [Mass/Vol] 1.42 ng/mL Normal <=3.60 [facility] Comment on above: Performed By: #### L IPA, CMP, CMADM, BNP, GRACIELA #### [facility] [address] [place] [address] Dr. Yonny Meza HSTROP 13.9 pg/mL Normal 4.0-51.3 [facility] Comment on above: Result Comment: CUT- OFF POINTS HAVE BEEN ESTABLISHED BASED ON THE FOURTH UNIVERSAL DEFINITIONS OF MYOCARDIAL INFARCTION. THE UPPER REFERENCE LIMIT (URL) OF TROPONIN, DEFINED THE 99TH PERCENTILE OF cTnI DISTRIBUTION IN A REFERENCE POPULATION, HAS BEEN CONFIRMED THE DECISION THRESHOLD FOR RI DIAGNOSIS. Performed By: #### L IPA, CMP, CMADM, BNP, GRACIELA #### [facility] [address] [place] [address] Dr. Yonny Meza DARION 63 ng/mL Normal 9-82 [facility] Comment on above: Performed By: #### L IPA, CMP, CMADM, BNP, GRACIELA #### [facility] [address] [place] [address] Dr. Yonny Meza CBC AUTO DIFFon 09-03-2022 BASO # 0.0 103/ul Normal 0.0-0.1 [facility] Comment on above: Performed By: #### L IPA, CMP, CMADM, BNP, GRACIELA #### [facility] [address] [place] [address] Dr. Yonny Meza Basophils/100 WBC (Bld) 0.4 % Normal 0.2-2.0 [facility] Comment on above: Performed By: #### L IPA, CMP, CMADM, BNP, GRACIELA #### [facility] [address] [place] [address] Dr. Yonny Meza EO # 0.1 103/ul Normal 0.0-0.7 [facility] Comment on above: Performed By: #### L IPA, CMP, CMADM, BNP, GRACIELA #### [facility] [address] [place] [address] Dr. Yonny Meza Eosinophils/100 WBC (Bld) 1.6 % Normal 0.9-7.0 [facility] Comment on above: Performed By: #### L IPA, CMP, CMADM, BNP, GRACIELA #### [facility] [address] [place] [address] Dr. Yonny Meza Erythrocyte distribution width (RBC) [Ratio] 12.6 % Normal 11.0-15.0 [facility] Comment on above: Performed By: #### L IPA, CMP, CMADM, BNP, GRACIELA #### [facility] [address] [place] [address] Dr. Yonny Meza Hematocrit (Bld) [Volume fraction] 38.9 % Normal 36.0-48.0 [facility] Comment on above: Performed By: #### L IPA, CMP, CMADM, BNP, GRACIELA #### [facility] [address] [place] [address] Dr. Yonny Meza Hemoglobin (Bld) [Mass/Vol] 13.0 g/dL Normal 12.0-16.0 [facility] Comment on above: Performed By: #### L IPA, CMP, CMADM, BNP, GRACIELA #### [facility] [address] [place] [address] Dr. Yonny Meza IG # 0.02 10e3/ul Normal 0.00-0.03 [facility] Comment on above: Performed By: #### L IPA, CMP, CMADM, BNP, GRACIELA #### [facility] [address] [place] [address] Dr. Yonny Meza IG % 0.3 % Normal 0.0-0.5 [facility] Comment on above: Performed By: #### L IPA, CMP, CMADM, BNP, GRACIELA #### [facility] [address] [place] [address] Dr. Yonny Meza LYMPH # 2.0 103/ul Normal 1.2-3.8 [facility] Comment on above: Performed By: #### L IPA, CMP, CMADM, BNP, GRACIELA #### [facility] [address] [place] [address] Dr. Yonny Meza Lymphocytes/100 WBC (Bld) 25.3 % Normal 20.5-60.0 [facility] Comment on above: Performed By: #### L IPA, CMP, CMADM, BNP, GRACIELA #### [facility] [address] [place] [address] Dr. Yonny Meza MANUAL DIFF REQ NO Normal [facility] Comment on above: Performed By: #### L IPA, CMP, CMADM, BNP, GRACIELA #### [facility] [address] [place] [address] Dr. Yonny Meza MCH (RBC) [Entitic mass] 31.8 pg Normal 26.7-34.0 [facility] Comment on above: Performed By: #### L IPA, CMP, CMADM, BNP, GRACIELA #### [facility] [address] [place] [address] Dr. Yonny Meza MCHC (RBC) [Mass/Vol] 33.4 g/dL Normal 29.9-35.2 [facility] Comment on above: Performed By: #### L IPA, CMP, CMADM, BNP, GRACIELA #### [facility] [address] [place] [address] Dr. Yonny Meza MCV (RBC) [Entitic vol] 95.1 fL Normal 81.0-99.0 [facility] Comment on above: Performed By: #### L IPA, CMP, CMADM, BNP, GRACIELA #### [facility] [address] [place] [address] Dr. Yonny Meza MONO # 0.9 103/ul Critically high 0.3-0.8 [facility] Comment on above: Performed By: #### L IPA, CMP, CMADM, BNP, GRACIELA #### [facility] [address] [place] [address] Dr. Yonny Meza Monocytes/100 WBC (Bld) 11.5 % Normal 1.7-12.0 [facility] Comment on above: Performed By: #### L IPA, CMP, CMADM, BNP, GRACIELA #### [facility] [address] [place] [address] Dr. Yonny Meza NEUT # 4.8 103/ul Normal 1.4-6.5 [facility] Comment on above: Performed By: #### L IPA, CMP, CMADM, BNP, GRACIELA #### [facility] [address] [place] [address] Dr. Yonny Meza Neutrophils/100 WBC (Bld) 60.9 % Normal 43.0-75.0 [facility] Comment on above: Performed By: #### L IPA, CMP, CMADM, BNP, GRACIELA #### [facility] [address] [place] [address] Dr. Yonny Meza Platelet mean volume (Bld) [Entitic vol] 10.1 fL Normal 9.5-13.5 [facility] Comment on above: Performed By: #### L IPA, CMP, CMADM, BNP, GRACIELA #### [facility] [address] [address] [address] Yonny Meza PLT 252 103/ul Normal 150-450 [facility] Comment on above: Performed By: #### L IPA, CMP, CMADM, BNP, GRACIELA #### [facility] [address] [address] [address] Yonny Meza RBC 4.09 106/ul Critically low 4.20-5.40 [facility] Comment on above: Performed By: #### L IPA, CMP, CMADM, BNP, GRACIELA #### [facility] [address] [address] [address] Yonny Meza WBC 7.9 103/ul Normal 4.0-11.0 [facility] Comment on above: Performed By: #### L IPA, CMP, CMADM, BNP, GRACIELA #### [facility] [address] [address] [address] ABD/PELVIS WO CONon [...] HATTIE [place] Date: 2022-09-03 01:11 Normal [facility] ER URINE PROFILEon 3 Bilirubin Ql (U) Negative Normal NEGATIVE [facility] Comment on above: Performed By: #### L IPA, CMP, CMADM, BNP, GRACIELA #### [facility] [address] [address] [address] Yonny Meza Clarity (U) CLEAR Normal CLEAR [facility] Comment on above: Performed By: #### L IPA, CMP, CMADM, BNP, GRACIELA #### [facility] [address] [address] [address] Yonny Meza Color (U) LT. YELLOW Normal YELLOW [facility] Comment on above: Performed By: #### L IPA, CMP, CMADM, BNP, GRACIELA #### [facility] [address] [address] [address] Yonny Meza ERUAHTy A micrscopic examina tion will be performed if indicated. Normal [facility] Comment on above: Performed By: #### L IPA, CMP, CMADM, BNP, GRACIELA #### [facility] [address] [address] [address] Yonny Meza Glucose Ql (U) Negative Normal NEGATIVE [facility] Comment on above: Performed By: #### L IPA, CMP, CMADM, BNP, GRACIELA #### [facility] [address] [address] [address] Yonny Meza Hemoglobin Ql (U) Negative Normal NEGATIVE [facility] Comment on above: Performed By: #### L IPA, CMP, CMADM, BNP, GRACIELA #### [facility] [address] [place] [address] Dr. Yonny Meza Ketones Ql (U) Negative Normal NEGATIVE [facility] Comment on above: Performed By: #### L IPA, CMP, CMADM, BNP, GRACIELA #### [facility] [address] [place] [address] Dr. Yonny Meza LEUKOCYTES Negative Normal NEGATIVE [facility] Comment on above: Performed By: #### L IPA, CMP, CMADM, BNP, GRACIELA #### [facility] [address] [address] [address] Yonny Meza Nitrite Ql (U) Negative Normal NEGATIVE [facility] Comment on above: Performed By: #### L IPA, CMP, CMADM, BNP, GRACIELA #### [facility] [address] [address] [address] Yonny Meza pH (U) 7.0 [pH] Normal 5-9 [facility] Comment on above: Performed By: #### L IPA, CMP, CMADM, BNP, GRACIELA #### [facility] [address] [address] [address] Yonny Meza SPEC GRAVITY 1.015 Normal 1.005-<=1. 025 [facility] Comment on above: Performed By: #### L IPA, CMP, CMADM, BNP, GRACIELA #### [facility] [address] [place] [address] Dr. Yonny Meaz UA PROTEIN Negative Normal NEGATIVE/ TRACE [facility] Comment on above: Performed By: #### L IPA, CMP, CMADM, BNP, GRACIELA #### [facility] [address] [place] [address] Dr. Yonny Meza UR MICRO IND NOT INDICATED Normal [facility] Comment on above: Performed By: #### L IPA, CMP, CMADM, BNP, GRACIELA #### [facility] [address] [place] [address] Dr. Yonny Meza Urobilinogen Qn (U) 0.2 {Arnaud'U}/dL Normal 0.2 - 1. 0 [facility] Comment on above: Performed By: #### L IPA, CMP, CMADM, BNP, GRACIELA #### [facility] [address] [place] [address] Dr. Yonny Meza LACTATE/LACTIC ACIDon 2022 Lactate [Moles/Vol] 2.3 mmol/L Critically high 0.4-2.0 [facility] Comment on above: Performed By: #### L ACT #### [facility] [address] [place] [address] Dr. Yonny Meza Lactate [Moles/Vol] 2.2 mmol/L Critically high 0.4-2.0 [facility] Comment on above: Performed By: #### L IPA, CMP, CMADM, BNP, GRACIELA #### [facility] [address] [place] [address] Dr. Yonny Meza LIPASEon 09-03-2022 Lipase [Catalytic activity/Vol] 88.0 U/L Normal 73.0-393.0 [facility] Comment on above: Performed By: #### L IPA, CMP, CMADM, BNP, GRACIELA #### [facility] [address] [place] [address] Dr. Yonny Meza PROF 14(COMP METB)on 023 Albumin [Mass/Vol] 3.3 g/dL Critically low 3.4-5.0 [facility] Comment on above: Performed By: #### L IPA, CMP, CMADM, BNP, GRACIELA #### [facility] [address] [place] [address] Dr. Yonny Meza Albumin/Globulin [Mass ratio] 0.9 {ratio} Normal [facility] Comment on above: Performed By: #### L IPA, CMP, CMADM, BNP, GRACIELA #### [facility] [address] [place] [address] Dr. Yonny Meza ALP [Catalytic activity/Vol] 122 U/L Critically high 46-116 [facility] Comment on above: Performed By: #### L IPA, CMP, CMADM, BNP, GRACIELA #### [facility] [address] [place] [address] Dr. Yonny Meza ALT [Catalytic activity/Vol] 21 U/L Normal 14-59 [facility] Comment on above: Performed By: #### L IPA, CMP, CMADM, BNP, GRACIELA #### [facility] [address] [place] [address] Dr. Yonny Meza Anion gap [Moles/Vol] 12.4 mmol/L Normal [facility] Comment on above: Performed By: #### L IPA, CMP, CMADM, BNP, GRACIELA #### [facility] [address] [place] [address] Dr. Yonny Meza AST [Catalytic activity/Vol] 24 U/L Normal 15-37 [facility] Comment on above: Performed By: #### L IPA, CMP, CMADM, BNP, GRACIELA #### [facility] [address] [place] [address] Dr. Yonny Meza Bilirubin [Mass/Vol] 0.4 mg/dL Normal 0.2-1.0 [facility] Comment on above: Performed By: #### L IPA, CMP, CMADM, BNP, GRACIELA #### [facility] [address] [place] [address] Dr. Yonny Meza Calcium [Mass/Vol] 8.7 mg/dL Normal 8.5-10.1 [facility] Comment on above: Performed By: #### L IPA, CMP, CMADM, BNP, GRACIELA #### [facility] [address] [place] [address] Dr. Yonny Meza Chloride [Moles/Vol] 105 mmol/L Normal 98-107 [facility] Comment on above: Performed By: #### L IPA, CMP, CMADM, BNP, GRACIELA #### [facility] [address] [place] [address] Dr. Yonny Meza CO2 [Moles/Vol] 28.0 mmol/L Normal 21.0-32.0 [facility] Comment on above: Performed By: #### L IPA, CMP, CMADM, BNP, GRACIELA #### [facility] [address] [place] [address] Dr. Yonny Meza Creatinine [Mass/Vol] 1.11 mg/dL Critically high 0.55-1.02 [facility] Comment on above: Performed By: #### L IPA, CMP, CMADM, BNP, GRACIELA #### [facility] [address] [place] [address] Dr. Yonny Meza EGFR-AF BURKINAN 58 mL/min/1.73m2 Critically low >=60 [facility] Comment on above: Performed By: #### L IPA, CMP, CMADM, BNP, GRACIELA #### [facility] [address] [place] [address] Dr. Yonny Meza EGFR-NON AF BURKINAN 48 mL/min/1.73m2 Critically low >=60 [facility] Comment on above: Performed By: #### L IPA, CMP, CMADM, BNP, GRACIELA #### [facility] [address] [place] [address] Dr. Yonny Meza Globulin (S) [Mass/Vol] 3.7 g/dL Normal [facility] Comment on above: Performed By: #### L IPA, CMP, CMADM, BNP, GRACIELA #### [facility] [address] [place] [address] Dr. Ynony Meza Glucose [Mass/Vol] 152 mg/dL Critically high 74-106 [facility] Comment on above: Performed By: #### L IPA, CMP, CMADM, BNP, GRACIELA #### [facility] [address] [address] [address] Yonny Meza Potassium [Moles/Vol] 3.4 mmol/L Critically low 3.5-5.1 [facility] Comment on above: Performed By: #### L IPA, CMP, CMADM, BNP, GRACIELA #### [facility] [address] [address] [address] Yonny Meza Protein [Mass/Vol] 7.0 g/dL Normal 6.4-8.2 [facility] Comment on above: Performed By: #### L IPA, CMP, CMADM, BNP, GRACIELA #### [facility] [address] [address] [address] Yonny Meza Sodium [Moles/Vol] 142 mmol/L Normal 136-145 [facility] Comment on above: Performed By: #### L IPA, CMP, CMADM, BNP, GRACIELA #### [facility] [address] [place] [address] Dr. Yonny Meza Urea nitrogen [Mass/Vol] 14.0 mg/dL Normal 7.0-18.0 [facility] Comment on above: Performed By: #### L IPA, CMP, CMADM, BNP, GRACIELA #### [facility] [address] [place] [address] Dr. Yonny Meza Urea nitrogen/Creatinine [Mass ratio] 12.6 mg/mg Normal [facility] Comment on above: Performed By: #### L IPA, CMP, CMADM, BNP, GRACIELA #### [facility] [address] [place] [address] Dr. Yonny Meza PROTIMEon 09-03-2022 INR Coag (PPP) [Relative time] 1.05 {INR} Normal [facility] Comment on above: Performed By: #### L IPA, CMP, CMADM, BNP, GRACIELA #### [facility] [address] [place] [address] Dr. Yonny Meza INR GUIDELINES SEE BELOW Normal [facility] Comment on above: Result Comment: ASCENCION RED INR: 2.0 - 3.0 CONDITIONS NOT LISTED BELOW 2.5 - 3.5 FOR PROSTHETIC HEART VALVE REPLACEMENT 2.5 - 3.5 RECURRENT THROMBOSIS Performed By: #### L IPA, CMP, CMADM, BNP, GRACIELA #### [facility] [address] [address] [address] Yonny Meza PT Coag (PPP) [Time] 11.1 s Normal 9.0-11.6 [facility] Comment on above: Performed By: #### L IPA, CMP, CMADM, BNP, GRACIELA #### [facility] [address] [address] [address] Yonny Meza PTTon 09-03-2022 aPTT Coag (Bld) [Time] 26.7 s Normal 22.3-36.2 [facility] Comment on above: Performed By: #### L IPA, CMP, CMADM, BNP, GRACIELA #### [facility] [address] [address] [address] Yonny Meza XR CHEST 1 Von [...] Date: 2022-09-03 00:[address] [facility] MAMM SCREEN 3D RON CADon 06-06-2022 MG MAMM SCREEN 3D RON CAD Patient: LUMA RIBEIRO Exam Date: 06/06/2022 : 1945 Gender:F Ordering : DR ROC STEELE M.D. Admission #: [id number] Family : Order #: [id number] CLICK HERE TO VIEW EXAM RADIOLOGY REPORT [...] breast cancer at age 61. LOCATION: [facility] BREAST COMPOSITION: Scattered areas fibroglandular density. [...] PALPABLE LUMP SHOULD BE BIOPSIED. Dictated by: Lsia Frederick MD on 06/07/2022 at 08:06 Approved by: Lisa Frederick MD on 06/07/2022 at 08:09 Normal [facility] No Panel Informationon 12-16 Please click on the link to view the study images Normal -[facility] Work Phone: Radiologyon 12-03-2020 XR Pelvis and Hip - left 2 Views Normal -[facility] Work Phone: MRI Humerus w/wo Contraston 11-20-2020 MRI Humerus w/wo Contrast Normal -[facility] Work Phone: Otheron 02-13-2020 Interpreted by: BONIFACIO ALARCON 15:34MRN: [id number] Name: GEMALUMA STUDY:HIP, UNILATERAL W/PELVIS WHEN PERFORMED 2-3 VIEWS; Right;02/13/2020 1:58 pm INDICATION:pain. 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 No acute bony abnormality orperiprosthetic fracture appreciated. Electronically signed by: TASIA BIRD 02/13/20 15:34 Normal [facility] Work Phone: Complete Blood Count + Diffe rentialon 01-30-2020 Basophils (Bld) [#/Vol] 0.04 {x10E9/L} See Below [facility] Work Phone: Comment on above: Reference Range: 0.0 0 - 0.10 Basophils/100 WBC (Bld) 0.2 % 0.0 - 2.0 [facility] Phone: Eosinophils (Bld) [#/Vol] 0.01 {x10E9/L} See Below [facility] Work Phone: Comment on above: Reference Range: 0.0 0 - 0.40 Eosinophils/100 WBC (Bld) 0.1 % 0.0 - 6.0 [facility] Work Phone: Erythrocyte distribution width (RBC) [Ratio] 13.1 % See Below [facility] Work Phone: Comment on above: Reference Range: 11. 5 - 14.5 Hematocrit (Bld) [Volume fraction] 34.8 % below low threshold See Below [facility] Work Phone: Comment on above: Reference Range: 36. 0 - 46.0 Hemoglobin (Bld) [Mass/Vol] 11.3 g/dL below low threshold See Below [facility] Work Phone: Comment on above: Reference Range: 12. 0 - 16.0 Lymphocytes (Bld) [#/Vol] 2.21 {x10E9/L} See Below [facility] Work Phone: Comment on above: Reference Range: 0.8 0 - 3.00 Lymphocytes/100 WBC (Bld) 12.5 % See Below [facility] Work Phone: Comment on above: Reference Range: 13. 0 - 44.0 MCHC (RBC) [Mass/Vol] 32.5 g/dL See Below [facility] [place] Work Phone: Comment on above: Reference Range: 32. 0 - 36.0 MCV (RBC) [Entitic vol] 99 fL 80 - 100 [facility] Work Phone: Monocytes (Bld) [#/Vol] 1.82 {x10E9/L} above high threshold See Below [facility] Work Phone: Comment on above: Reference Range: 0.0 5 - 0.80 Monocytes/100 WBC (Bld) 10.3 % 2.0 - 10.0 [facility] Work Phone: Neutrophils/100 WBC (Bld) 76.3 % See Below [facility] Work Phone: Comment on above: Reference Range: 40. 0 - 80.0 Platelets (Bld) [#/Vol] 234 {x10E9/L} 150 - 450 [facility] Work Phone: RBC (Bld) [#/Vol] 3.52 {x10E12/L} below low threshold See Below [facility] Work Phone: Comment on above: Reference Range: 4.0 0 - 5.20 WBC (Bld) [#/Vol] 17.7 {x10E9/L} above high threshold 4.4 - 11.3 [facility] Work Phone: Complete Blood Count + Differential 0.6 % 0.0 - 0.9 [facility] Work Phone: Comment on above: Immature Granulocyte Count (IG) includes promyelocytes, myelocytes and metamyelocytes but does not include bands. Percent differential counts (%) should be interpreted in the context of the absolute cell counts (cells/L). Complete Blood Count + Differential 13.52 {x10E9/L} above high threshold See Below [facility] [place] [employer] Work Phone: Comment on above: Reference Range: 1.6 0 - 5.50 Metabolic Panelon 01-30-2020 Anion gap [Moles/Vol] 8 mmol/L below low threshold 10 - 20 [facility] [employer] Work Phone: Calcium [Mass/Vol] 8.8 mg/dL 8.6 - 10.[address] [facility] [place] [employer] Work Phone: Chloride [Moles/Vol] 101 mmol/L 98 - 107 [facility] [place] [employer] Work Phone: CO2 [Moles/Vol] 32 mmol/L 21 - 32 [facility] [employer] Work Phone: Creatinine [Mass/Vol] 1.00 mg/dL See Below [facility] [employer] Work Phone: Comment on above: Reference Range: 0.5 0 - 1.05 Glucose [Mass/Vol] 128 mg/dL above high threshold 74 - 99 [facility] [employer] Work Phone: Potassium [Moles/Vol] 4.2 mmol/L 3.5 - 5.3 [facility] [employer] Work Phone: Sodium [Moles/Vol] 137 mmol/L 136 - [address] [facility] [place] [employer] Work Phone: Urea nitrogen [Mass/Vol] 14 mg/dL 6 - 23 [facility] [employer] Work Phone: Otheron 01-30-2020 65 {mL/min/1.73m2} >[address] [facility] [place] [employer] Work Phone: Comment on above: CALCULATIONS OF TONE MATED GFR ARE PERFORMED USING THE MDRD STUDY EQUATION FOR THE IDMS-TRACEABLE CREATININE METHODS. CLIN CHEM 2007;53:766-72 54 {mL/min/1.73m2} Abnormal >[address] [facility] [place] [employer] Work Phone: Otheron 01-29-2020 Interpreted by: CECDIT26/01/20 15:21MRN: [id number] Name: LUMA RIBEIRO STUDY:HIP, UNILATERAL W/PELVIS WHEN PERFORMED 2-3 VIEWS; 01/29/2020 12:25 pm INDICATION:s/p right ROSSANA. COMPARISON:01/16/2020 ORDERING CLINICIAN:TASIA BIRD FINDINGS:Pelvis and right hip, three views Interval right total hip arthroplasty noted without periprostheticfracture or lucency. There is no dislocation. IMPRESSION:Right total hip arthroplasty without immediate complicationsElectronically signed by: RAJIV 01/30/20 15:21 Normal [facility] Work Phone: XR Pelvis 1 or 2 views Please click on the link to view the study images Normal [facility] Work Phone: Coronavirus 2019 RNA by PCR, Screening Asymptomticon 01-27-2020 Coronavirus 2019 RNA by PCR, Screening Asymptomtic NOT DETECTED See Below [facility] Work Phone: Comment on above: SOURCE: [...] make patient management decisions.Fact sheet for providers: https://www.fda.gov/media/105785/downloadFact sheet for patients: https://www.fda.gov/media/859204/downloadThis test has received FDA Emergency Use Authorization (EUA) and has been verified by [facility] ([facility]). This test is only authorized for the duration of time that circumstances exist to justify the authorization of the emergency use of in vitro diagnostic tests for the detection of SARS-CoV-2 virus and/or diagnosis of COVID-19 infection under section 564(b)(1) of the Act, 21 U.S.C. 360bbb-3(b)(1), unless the authorization is terminated or revoked sooner. [facility] is certified under CLIA-88 as qualified to perform high complexity testing. Testing is performed in the [facility] laboratories located at [address] [place] [address]. Activated Partial Thrombopla stin Timeon 01-20-2020 aPTT Coag (PPP) [Time] 29 {sec} 25 - 35 [facility] Work Phone: Comment on above: THE APTT IS NO LONGE R USED FOR MONITORING UNFRACTIONATED HEPARIN THERAPY. FOR MONITORING HEPARIN THERAPY, USE THE HEPARIN ASSAY. Complete Blood Count + Diffe rentialon 01-20-2020 Basophils (Bld) [#/Vol] 0.04 {x10E9/L} See Below [facility] Work Phone: Comment on above: Reference Range: 0.0 0 - 0.10 Basophils/100 WBC (Bld) 0.5 % 0.0 - 2.0 [facility] Work Phone: Eosinophils (Bld) [#/Vol] 0.09 {x10E9/L} See Below [facility] Work Phone: Comment on above: Reference Range: 0.0 0 - 0.40 Eosinophils/100 WBC (Bld) 1.0 % 0.0 - 6.0 [facility] Work Phone: Erythrocyte distribution width (RBC) [Ratio] 12.9 % See Below [facility] Work Phone: Comment on above: Reference Range: 11. 5 - 14.5 Hematocrit (Bld) [Volume fraction] 44.6 % See Below [facility] Work Phone: Comment on above: Reference Range: 36. 0 - 46.0 Hemoglobin (Bld) [Mass/Vol] 14.5 g/dL See Below [facility] Work Phone: Comment on above: Reference Range: 12. 0 - 16.0 Lymphocytes (Bld) [#/Vol] 3.41 {x10E9/L} above high threshold See Below [facility] Work Phone: Comment on above: Reference Range: 0.8 0 - 3.00 Lymphocytes/100 WBC (Bld) 38.4 % See Below [facility] Work Phone: Comment on above: Reference Range: 13. 0 - 44.0 MCHC (RBC) [Mass/Vol] 32.5 g/dL See Below [facility] Work Phone: [phone] Comment on above: Reference Range: 32. 0 - 36.0 MCV (RBC) [Entitic vol] 100 fL 80 - 100 [facility] Work Phone: Monocytes (Bld) [#/Vol] 0.81 {x10E9/L} above high threshold See Below [facility] Work Phone: Comment on above: Reference Range: 0.0 5 - 0.80 Monocytes/100 WBC (Bld) 9.1 % 2.0 - 10.0 [facility] Work Phone: [phone] Neutrophils (Bld) [#/Vol] 4.49 {x10E9/L} See Below [facility] Work Phone: [phone] Comment on above: Reference Range: 1.6 0 - 5.50 Neutrophils/100 WBC (Bld) 50.7 % See Below [facility] Work Phone: [phone] Comment on above: Reference Range: 40. 0 - 80.0 Platelets (Bld) [#/Vol] 261 {x10E9/L} 150 - 450 -[facility] Work Phone: [phone] RBC (Bld) [#/Vol] 4.48 {x10E12/L} See Below [facility] Work Phone: Comment on above: Reference Range: 4.0 0 - 5.20 WBC (Bld) [#/Vol] 8.9 {x10E9/L} 4.4 - 11.3 [facility] Work Phone: [phone] Complete Blood Count + Differential 0.3 % 0.0 - 0.9 [facility] Work Phone: [phone] Comment on above: Immature Granulocyte Count (IG) includes promyelocytes, myelocytes and metamyelocytes but does not include bands. Percent differential counts (%) should be interpreted in the context of the absolute cell counts (cells/L). Fructosamine, Serumon 2019 Fructosamine [Moles/Vol] 265 umol/L 0-285 [facility] Work Phone: Comment on above: Published reference interval for apparently healthy subjectsbetween age 20 and 60 is 205 - 285 umol/L and in a poorlycontrolled diabetic population is 228 - 563 umol/L with amean of 396 umol/L. Hematologyon 01-20-2020 INR Coag (PPP) [Relative time] 1.1 {INR} 0.9 - 1.1 [facility] Work Phone: [phone] PT Coag (PPP) [Time] 13.0 {sec} See Below [facility] Work Phone: [phone] Comment on above: Reference Range: 10. 1 - 13.3 Metabolic Panelon 01-20-2020 ALP [Catalytic activity/Vol] 100 U/L 33 - 136 [facility] Work Phone: [phone] Anion gap [Moles/Vol] 13 mmol/L 10 - 20 [facility] [place] Work Phone: [phone] Bilirubin [Mass/Vol] 0.6 mg/dL 0.0 - 1.2 [facility] [place] Work Phone: [phone] Calcium [Mass/Vol] 9.7 mg/dL 8.6 - 10.[address] [facility] [place] Work Phone: [phone] Chloride [Moles/Vol] 101 mmol/L 98 - 107 [facility] [place] Work Phone: [phone] CO2 [Moles/Vol] 32 mmol/L 21 - 32 [facility] [place] Work Phone: [phone] Creatinine [Mass/Vol] 1.01 mg/dL See Below - [facility] [place] Work Phone: [phone] Comment on above: Reference Range: 0.5 0 - 1.05 Glucose [Mass/Vol] 88 mg/dL 74 - [address] [facility] [place] Work Phone: [phone] Potassium [Moles/Vol] 3.9 mmol/L 3.5 - 5.3 - [facility] [place] Work Phone: [phone] Protein [Mass/Vol] 7.6 g/dL 6.4 - 8.[address] [address] [facility] [place] Work Phone: [phone] Sodium [Moles/Vol] 142 mmol/L 136 - [address] [facility] [place] Work Phone: [phone] Urea nitrogen [Mass/Vol] 15 mg/dL 6 - 23 -[facility] [place] Work Phone: [phone] Otheron 01-20-2020 100 1 -[facility] [place] Work Phone: [phone] 1 -[facility] [place] Work Phone: 1 -[facility] [place] Work Phone: [phone] [facility] Work Phone: [phone] [facility] Work Phone: [phone] [facility] Work Phone: [phone] Sinus rhythm with occasional premature ventricular complexes [facility] Work Phone: [phone] [facility] Work Phone: [phone] [email or web address] 1:[email or web address]/ [email or web address]?Ret rieveTestByDateTime?Patient HK=[id number]&Date= 0&Time=14%3a54%3a12%3a00&Te stType=ECG&Site=11&OutputTy pe=PDF&Ext=PDF [facility] Work Phone: [phone] [facility] Work Phone: [phone] [facility] Work Phone: [phone] [facility] Work Phone: [phone] [facility] Work Phone: [phone] [facility] Work Phone: [phone] [facility] Work Phone: [phone] Albumin BCP dye [Mass/Vol] 4.4 g/dL 3.4 - 5.0 [facility] Work Phone: [phone] ALT With P-5'-P [Catalytic activity/Vol] 16 U/L 7 - 45 [facility] Work Phone: [phone] Comment on above: Patients treated wit h Sulfasalazine may generate falsely decreased results for ALT. AST With P-5'-P [Catalytic activity/Vol] 23 U/L 9 - 39 [facility] Work Phone: {mL/min/1.73m2} >[address] [facility] Work Phone: [phone] Comment on above: CALCULATIONS OF TONE MATED GFR ARE PERFORMED USING THE MDRD STUDY EQUATION FOR THE IDMS-TRACEABLE CREATININE METHODS. CLIN CHEM 2007;53:766-72 54 {mL/min/1.73m2} Abnormal >[address] [facility] Work Phone: Urinalysison 01-20-2020 Appearance (U) HAZY CLEAR -[facility] Work Phone: [phone] Color (U) YELLOW See Below [facility] Work Phone: [phone] Comment on above: Reference Range: STR AW,YELLOW Glucose Ql (U) Negative NEGATIVE -[facility] Work Phone: [phone] Ketones Ql (U) Negative NEGATIVE -[facility] Work Phone: [phone] Leukocyte esterase Test strip Ql (U) Negative NEGATIVE -[facility] Work Phone: [phone] pH (U) 7.0 [pH] 5.0 - 8.0 [facility] Work Phone: [phone] Protein (U) [Mass/Vol] Negative NEGATIVE [facility] Work Phone: [phone] RBC (U) [#/Vol] Negative NEGATIVE [facility] Work Phone: [phone] Specific gravity (U) [Rel density] 1.019 See Below [facility] Work Phone: [phone] Comment on above: Reference Range: 1.0 05 - 1.035 Urinalysis Negative NEGATIVE -[facility] Work Phone: Urinalysis 2.0 mg/dL above high threshold 0.0 - 1.9 -[facility] Work Phone: Comment on above: [...] Otheron 01-16-2020 Interpreted by: AGNES ALVARADO01/16/20 13:42MRN: [id number] Name: LUMA RIBEIRO STUDY:HIP, UNILATERAL W/PELVIS WHEN PERFORMED 2-3 VIEWS; Right; 01/16/20201:39 pm INDICATION:pain. ORDERING CLINICIAN:HARSHAL ALVARADO FINDINGS:AP lateral right hip x-ray shows end-stage ftqoidwmfckjbypxsk-[id number] arthrosis noted. 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 Electronically signed by: HARSHAL ALVARADO 01/16/20 13:42 Normal [facility] Work Phone: Vital Signs Date Time Vital Sign Value Performing Clinician Facility 2024 15:00-0400 Diastolic blood pressure 90 mm[Hg] Amber Hawley MD Work Phone: [facility] 2024 15:00-0400 Systolic blood pressure 130 mm[Hg] Amber Hawley MD Work Phone: [facility] 2024 14:11-0400 Body height 162.6 cm Amber Hawley MD Work Phone: [facility] 2024 14:11-0400 Body mass index (BMI) [Ratio] 44.97 kg/m2 Amber Hawley MD Work Phone: [facility] 2024 14:11-0400 Body weight 118.84 kg Amber Hawley MD Work Phone: [facility] 2024 14:11-0400 Heart rate 72 /min Amber Hawley MD Work Phone: [facility] 10-16-2024 11:33-0400 Body height 157.5 cm Kamila Pride PSYCHOLOGIST Work Phone: [facility] 10-16-2024 11:33-0400 Body mass index (BMI) [Ratio] 48.47 kg/m2 Kamila Espitiavely PSYCHOLOGIST Work Phone: [facility] 10-16-2024 11:33-0400 Body weight 120.2 kg Kamila Pride PSYCHOLOGIST Work Phone: [facility] 10-16-2024 11:33-0400 Diastolic blood pressure 101 mm[Hg] Kamila Pride PSYCHOLOGIST Work Phone: [facility] 10-16-2024 11:33-0400 Heart rate 77 /min Kamila Bigg PSYCHOLOGIST Work Phone: [facility] 10-16-2024 11:33-0400 Respiratory rate 17 /min Kamila Bigg PSYCHOLOGIST Work Phone: [facility] 10-16-2024 11:33-0400 SaO2% (BldA) [Mass fraction] 96 % Kamila Espitiavely PSYCHOLOGIST Work Phone: [facility] 10-16-2024 11:33-0400 Systolic blood pressure 182 mm[Hg] Kamila Pride PSYCHOLOGIST Work Phone: [facility] 10-10-2024 15:03-0400 Body height 157.5 cm Alex Alfredo DPM Work Phone: [facility] 10-10-2024 15:03-0400 Body mass index (BMI) [Ratio] 49.02 kg/m2 Alex Alfredo DPM Work Phone: [facility] 10-10-2024 15:03-0400 Body weight 121.56 kg Alex Alfredo DPM Work Phone: [facility] 10-10-2024 15:03-0400 Respiratory rate 18 /min Alex Alfredo DPM Work Phone: [facility] 09-18-2024 11:00-0400 Body height 162.[address] 09-18-2024 11:00-0400 Body mass index (BMI) [Ratio] 46.17 kg/m2 [address] 09-18-2024 11:00-0400 Body weight 122.[address] 09-18-2024 11:00-0400 Diastolic blood pressure 86 mm[Hg] [address] 09-18-2024 11:00-0400 Systolic blood pressure 124 mm[Hg] [address] 09-18-2024 10:44-0400 Diastolic blood pressure 78 mm[Hg] [address] 09-18-2024 10:44-0400 Heart rate 67 /min [address] 09-18-2024 10:44-0400 Systolic blood pressure 122 mm[Hg] [address] 08-19-2024 11:24-0400 Body height 157.5 cm Roc Steele MD Work Phone: [facility] 08-19-2024 11:24-0400 Body mass index (BMI) [Ratio] 49.02 kg/m2 Roc Steele MD Work Phone: [facility] 08-19-2024 11:24-0400 Body weight 121.56 kg Roc Steele MD Work Phone: [facility] 08-19-2024 11:24-0400 Diastolic blood pressure 86 mm[Hg] Roc Steele MD Work Phone: [facility] 08-19-2024 11:24-0400 Heart rate 89 /min Roc Steele MD Work Phone: [facility] 08-19-2024 11:24-0400 SaO2% (BldA) [Mass fraction] 96 % Roc Steele MD Work Phone: [facility] 08-19-2024 11:24-0400 Systolic blood pressure 138 mm[Hg] Roc Steele MD Work Phone: [facility] 08-01-2024 14:45-0400 Body height 157.5 cm Alex Alfredo DPM Work Phone: [facility] 08-01-2024 14:45-0400 Body mass index (BMI) [Ratio] 48.65 kg/m2 Alex Alfredo DPM Work Phone: [facility] 08-01-2024 14:45-0400 Body weight 120.66 kg Alex Alfredo DPM Work Phone: [facility] 08-01-2024 14:45-0400 Respiratory rate 16 /min Alex Alfredo DPM Work Phone: [facility] 08-01-2024 13:31-0400 Body height 157.5 cm Kamila Pride PSYCHOLOGIST Work Phone: [facility] 08-01-2024 13:31-0400 Body mass index (BMI) [Ratio] 48.73 kg/m2 Kamila Pride PSYCHOLOGIST Work Phone: [facility] 08-01-2024 13:31-0400 Body weight 120.84 kg Kamila Pride PSYCHOLOGIST Work Phone: [facility] 08-01-2024 13:31-0400 Diastolic blood pressure 82 mm[Hg] Kamila Pride PSYCHOLOGIST Work Phone: [facility] 08-01-2024 13:31-0400 Heart rate 88 /min Kamila Pride PSYCHOLOGIST Work Phone: [facility] 08-01-2024 13:31-0400 Respiratory rate 17 /min Kamila Pride PSYCHOLOGIST Work Phone: [facility] 08-01-2024 13:31-0400 SaO2% (BldA) [Mass fraction] 99 % Kamila Pride PSYCHOLOGIST Work Phone: [facility] 08-01-2024 13:31-0400 Systolic blood pressure 134 mm[Hg] Kamila Pride PSYCHOLOGIST Work Phone: [facility] 07-15-2024 11:25-0400 Body height 162.6 cm Amber Hawley MD Work Phone: [facility] 07-15-2024 11:25-0400 Body mass index (BMI) [Ratio] 46.17 kg/m2 Amber Hawley MD Work Phone: [facility] 07-15-2024 11:25-0400 Body weight 122.02 kg Amber Hawley MD Work Phone: [facility] 07-15-2024 11:25-0400 Diastolic blood pressure 88 mm[Hg] Amber Hawley MD Work Phone: [facility] 07-15-2024 11:25-0400 Heart rate 93 /min Amber Hawley MD Work Phone: [facility] 07-15-2024 11:25-0400 Systolic blood pressure 128 mm[Hg] Amber Hawley MD Work Phone: [facility] 07-11-2024 12:59-0400 Body height 157.5 cm Kamila Pride PSYCHOLOGIST Work Phone: [facility] 07-11-2024 12:59-0400 Body mass index (BMI) [Ratio] 49.93 kg/m2 Kamila Pride PSYCHOLOGIST Work Phone: [facility] 07-11-2024 12:59-0400 Body weight 123.83 kg Kamila Pride PSYCHOLOGIST Work Phone: [facility] 07-11-2024 12:59-0400 Diastolic blood pressure 80 mm[Hg] Kamila Pride PSYCHOLOGIST Work Phone: [facility] 07-11-2024 12:59-0400 Heart rate 87 /min Kamila Pride PSYCHOLOGIST Work Phone: [facility] 07-11-2024 12:59-0400 SaO2% (BldA) [Mass fraction] 97 % Kamila Pirde PSYCHOLOGIST Work Phone: [facility] 07-11-2024 12:59-0400 Systolic blood pressure 130 mm[Hg] Kamila Bigg PSYCHOLOGIST Work Phone: [facility] 07-03-2024 11:31-0500 Body height 157.5 cm Kamila Pride PSYCHOLOGIST Work Phone: [facility] 07-03-2024 11:31-0500 Body mass index (BMI) [Ratio] 50.22 kg/m2 Kamilaolivia Pride PSYCHOLOGIST Work Phone: [facility] 07-03-2024 11:31-0500 Body weight 124.56 kg Kamila Pride PSYCHOLOGIST Work Phone: [facility] 07-03-2024 11:31-0500 Diastolic blood pressure 82 mm[Hg] Kamila Pride PSYCHOLOGIST Work Phone: [facility] 07-03-2024 11:31-0500 Heart rate 74 /min Kamila Pride PSYCHOLOGIST Work Phone: [facility] 07-03-2024 11:31-0500 Respiratory rate 17 /min Kamila Bigg PSYCHOLOGIST Work Phone: [facility] 07-03-2024 11:31-0500 SaO2% (BldA) [Mass fraction] 94 % Kamila Pride PSYCHOLOGIST Work Phone: [facility] 07-03-2024 11:31-0500 Systolic blood pressure 136 mm[Hg] Kamila Pride PSYCHOLOGIST Work Phone: [facility] 06-11-2024 11:07-0500 Body height 157.5 cm Kamila Bigg PSYCHOLOGIST Work Phone: [facility] 06-11-2024 11:07-0500 Body mass index (BMI) [Ratio] 49.2 kg/m2 Kamila [place] PSYCHOLOGIST Work Phone: [facility] 06-11-2024 11:07-0500 Body weight 122.02 kg Kamila Pride PSYCHOLOGIST Work Phone: [facility] 06-11-2024 11:07-0500 Diastolic blood pressure 78 mm[Hg] Kamila Espitiavely PSYCHOLOGIST Work Phone: [facility] 06-11-2024 11:07-0500 Heart rate 76 /min Kamila Bigg PSYCHOLOGIST Work Phone: [facility] 06-11-2024 11:07-0500 Respiratory rate 17 /min Kamila [place] PSYCHOLOGIST Work Phone: [facility] 06-11-2024 11:07-0500 SaO2% (BldA) [Mass fraction] 99 % Kamila Bigg PSYCHOLOGIST Work Phone: [facility] 06-11-2024 11:07-0500 Systolic blood pressure 134 mm[Hg] Kamila Espitiavely PSYCHOLOGIST Work Phone: [facility] 05-23-2024 14:37-0500 Body height 157.5 cm Alex Alfredo DPM Work Phone: [facility] 05-23-2024 14:37-0500 Body mass index (BMI) [Ratio] 50.3 kg/m2 Alex Alfredo DPM Work Phone: [facility] 05-23-2024 14:37-0500 Body weight 124.74 kg Alex Alfredo DPM Work Phone: [facility] 05-23-2024 14:37-0500 Respiratory rate 18 /min Alex Alfredo DPM Work Phone: [facility] 05-22-2024 10:11-0500 Body height 157.5 cm Kamila Espitiavely PSYCHOLOGIST Work Phone: [facility] 05-22-2024 10:11-0500 Body mass index (BMI) [Ratio] 50.33 kg/m2 Kamila Pride PSYCHOLOGIST Work Phone: [facility] 05-22-2024 10:11-0500 Body weight 124.83 kg Kamila Pride PSYCHOLOGIST Work Phone: [facility] 05-22-2024 10:11-0500 Diastolic blood pressure 80 mm[Hg] Kamila Pride PSYCHOLOGIST Work Phone: [facility] 05-22-2024 10:11-0500 Heart rate 77 /min Kamila Tara Hills PSYCHOLOGIST Work Phone: [facility] 05-22-2024 10:11-0500 Respiratory rate 18 /min Kamila Bigg PSYCHOLOGIST Work Phone: [facility] 05-22-2024 10:11-0500 SaO2% (BldA) [Mass fraction] 99 % Kamila Bigg PSYCHOLOGIST Work Phone: [facility] 05-22-2024 10:11-0500 Systolic blood pressure 128 mm[Hg] Kamila Tara Hills PSYCHOLOGIST Work Phone: [facility] 05-15-2024 11:32-0500 Body height 157.5 cm Kamila T[place] Hills PSYCHOLOGIST Work Phone: [facility] 05-15-2024 11:32-0500 Body mass index (BMI) [Ratio] 48.54 kg/m2 Kamila [place] PSYCHOLOGIST Work Phone: [facility] 05-15-2024 11:32-0500 Body weight 120.39 kg Kamila Bigg PSYCHOLOGIST Work Phone: [facility] 05-15-2024 11:32-0500 Diastolic blood pressure 76 mm[Hg] Kamila [place] Hills PSYCHOLOGIST Work Phone: [facility] 05-15-2024 11:32-0500 Heart rate 97 /min Kamila [place] PSYCHOLOGIST Work Phone: [facility] 05-15-2024 11:32-0500 Respiratory rate 18 /min Kamila Bigg PSYCHOLOGIST Work Phone: [facility] 05-15-2024 11:32-0500 SaO2% (BldA) [Mass fraction] 98 % Kamila [place] PSYCHOLOGIST Work Phone: [facility] 05-15-2024 11:32-0500 Systolic blood pressure 126 mm[Hg] Kamila [place] PSYCHOLOGIST Work Phone: [facility] 05-07-2024 10:53-0500 Body height 157.5 cm Kamila [place] PSYCHOLOGIST Work Phone: [facility] 05-07-2024 10:53-0500 Body mass index (BMI) [Ratio] 48.87 kg/m2 Kamila Bigg PSYCHOLOGIST Work Phone: [facility] 05-07-2024 10:53-0500 Body weight 121.2 kg Kamila Bigg PSYCHOLOGIST Work Phone: [facility] 05-07-2024 10:53-0500 Diastolic blood pressure 82 mm[Hg] Kamila Bigg PSYCHOLOGIST Work Phone: [facility] 05-07-2024 10:53-0500 Heart rate 88 /min Kamila Bigg PSYCHOLOGIST Work Phone: [facility] 05-07-2024 10:53-0500 Respiratory rate 18 /min Kamila Bigg PSYCHOLOGIST Work Phone: [facility] 05-07-2024 10:53-0500 SaO2% (BldA) [Mass fraction] 95 % Kamila Bigg PSYCHOLOGIST Work Phone: [facility] 05-07-2024 10:53-0500 Systolic blood pressure 130 mm[Hg] Kamila [place] Hills PSYCHOLOGIST Work Phone: [facility] 04-03-2024 08:32-0500 Body height 157.5 cm Kamila Bigg PSYCHOLOGIST Work Phone: [facility] 04-03-2024 08:32-0500 Body mass index (BMI) [Ratio] 49.6 kg/m2 Kamila Bigg PSYCHOLOGIST Work Phone: [facility] 04-03-2024 08:32-0500 Body weight 123.02 kg Kamila [place] PSYCHOLOGIST Work Phone: [facility] 04-03-2024 08:32-0500 Diastolic blood pressure 80 mm[Hg] Kamila Bigg PSYCHOLOGIST Work Phone: [facility] 04-03-2024 08:32-0500 Heart rate 74 /min Kamila [place] PSYCHOLOGIST Work Phone: [facility] 04-03-2024 08:32-0500 Respiratory rate 17 /min Kamila [place] PSYCHOLOGIST Work Phone: [facility] 04-03-2024 08:32-0500 SaO2% (BldA) [Mass fraction] 98 % Kamila Pride PSYCHOLOGIST Work Phone: [facility] 04-03-2024 08:32-0500 Systolic blood pressure 126 mm[Hg] Kamila Pride PSYCHOLOGIST Work Phone: [facility] 03-05-2024 11:19-0500 Body height 157.5 cm Kamila Pride PSYCHOLOGIST Work Phone: [facility] 03-05-2024 11:19-0500 Body mass index (BMI) [Ratio] 50.85 kg/m2 Kamila Pride PSYCHOLOGIST Work Phone: [facility] 03-05-2024 11:19-0500 Body weight 126.1 kg Kamila Pride PSYCHOLOGIST Work Phone: [facility] 03-05-2024 11:19-0500 Diastolic blood pressure 76 mm[Hg] Kamila Pride PSYCHOLOGIST Work Phone: [facility] 03-05-2024 11:19-0500 Heart rate 102 /min Kamila Pride PSYCHOLOGIST Work Phone: [facility] 03-05-2024 11:19-0500 SaO2% (BldA) [Mass fraction] 98 % Kamila Pride PSYCHOLOGIST Work Phone: [facility] 03-05-2024 11:19-0500 Systolic blood pressure 134 mm[Hg] Kamila Pride PSYCHOLOGIST Work Phone: [facility] 02-22-2024 14:09-0400 Body height 157.5 cm Alex Alfredo DPM Work Phone: [facility] 02-22-2024 14:09-0400 Body mass index (BMI) [Ratio] 50.85 kg/m2 Alex Alfredo DPM Work Phone: [facility] 02-22-2024 14:09-0400 Body weight 126.1 kg Alex Alfredo DPM Work Phone: [facility] 02-22-2024 14:09-0400 Diastolic blood pressure 80 mm[Hg] Alex Brown DPM Work Phone: [facility] 02-22-2024 14:09-0400 Heart rate 82 /min Alex Brown DPM Work Phone: [facility] 02-22-2024 14:09-0400 Systolic blood pressure 126 mm[Hg] Alex Brown DPM Work Phone: [facility] 06-15-2023 14:42-0500 Body height 157.5 cm Alex Brown DPM Work Phone: [facility] 06-15-2023 14:42-0500 Body mass index (BMI) [Ratio] 50.48 kg/m2 Alex Brown DPM Work Phone: [facility] 06-15-2023 14:42-0500 Body weight 125.19 kg Alex Brown DPM Work Phone: [facility] 06-15-2023 14:42-0500 Diastolic blood pressure 82 mm[Hg] Alex Brown DPM Work Phone: [facility] 06-15-2023 14:42-0500 Heart rate 84 /min Alex Brown DPM Work Phone: [facility] 06-15-2023 14:42-0500 Systolic blood pressure 133 mm[Hg] Alex Brown DPM Work Phone: [facility] 06-01-2023 15:33-0500 Body height 157.5 cm Alex Brown DPM Work Phone: [facility] 06-01-2023 15:33-0500 Body mass index (BMI) [Ratio] 50.48 kg/m2 Alex Brown DPM Work Phone: [facility] 06-01-2023 15:33-0500 Body weight 125.19 kg Alex Brown DPM Work Phone: [facility] 06-01-2023 15:33-0500 Diastolic blood pressure 80 mm[Hg] Alex Alfredo DPM Work Phone: [facility] 06-01-2023 15:33-0500 Heart rate 79 /min Alex Alfredo DPM Work Phone: [facility] 06-01-2023 15:33-0500 Systolic blood pressure 130 mm[Hg] Alex Alfredo DPM Work Phone: [facility] 01-16-2020 15:36-0400 BMI (Body Mass Index) 46.35 kg/m2 Tasia [facility] [place] Work Phone: 01-16-2020 15:36-0400 Body weight 122.47 kg Tasia [facility] [place] Work Phone: 01-16-2020 15:36-0400 BSA (Body Surface Area) 2.22 m2 Tasia [facility] [place] Work Phone: 01-16-2020 15:36-0400 Height 162.56 cm Tasia [facility] [place] Work Phone: Encounters Encounter Date Encounter Type Care Provider Facility Start: 01-23-2025 End: 01-23-2025 Clinisync Result Encounter Generic External Data Provider [facility] External Department Unsolicited Start: 01-23-2025 End: 01-23-2025 Clinisync Result Encounter Generic External Data Provider [facility] External Department Unsolicited Start: 2024 End: 2024 Office outpatient visit 25 minutes Amber Hawley MD Work Phone: [facility] Comment on above: Encounter to discuss test results (Primary Dx); Uses roller walker; Palpitations; Mixed hyperlipidemia; Chest discomfort; CARO on CPAP; Paroxysmal supraventricular tachycardia; Never smoked cigarettes; Body mass index (BMI) 40.0-44.9, adult (Multi) Start: 2024 End: 2024 ambulatory [facility] Start: 11-04-2024 End: 11-04-2024 ambulatory Daron Sanchez MD Facility:[facility] Start: 10-16-2024 End: 10-16-2024 Bamboo flowsheet Kamila Pride PSYCHOLOGIST Work Phone: [facility] Start: 10-16-2024 End: 10-16-2024 Bamboo flowsheet Kamila Pride PSYCHOLOGIST Work Phone: [facility] Start: 10-16-2024 End: 10-16-2024 Office outpatient visit 15 minutes Kamila Pride PSYCHOLOGIST Work Phone: [facility] Comment on above: Acute low back pain without sciatica, unspecified back pain laterality (Primary Dx) Start: 10-16-2024 End: 10-18-2024 Refill Roc Steele MD Work Phone: [facility] Comment on above: 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 Start: 10-14-2024 End: 10-14-2024 ambulatory Daron Sanchez MD Facility:[facility] Start: 10-10-2024 End: 10-10-2024 Patient encounter procedure [...] Department Unsolicited Start: 09-19-2024 End: 09-19-2024 ambulatory [facility] Start: 09-18-2024 End: 09-18-2024 Subsequent hospital visit by physician Jessica Dobbins Admin Room 1 [facility] Comment on above: Lightheadedness; Chest discomfort; Palpitations; Mixed hyperlipidemia Paroxysmal supravent ricular tachycardia; Abnormal EKG; Palpitations Start: 09-18-2024 End: 09-18-2024 ambulatory [facility] Start: 09-16-2024 End: 09-16-2024 ambulatory Daron Sanchez MD Facility:[facility] Start: 09-10-2024 End: 09-11-2024 Refill Kamila Pride PSYCHOLOGIST Work Phone: [facility] Comment on [...] 08-01-2024 End: 08-01-2024 Bamboo flowsheet Kamila Pride PSYCHOLOGIST Work Phone: [facility] Start: 08-01-2024 End: 08-01-2024 Bamboo flowsheet Kamila Pride PSYCHOLOGIST Work Phone: [facility] Start: 08-01-2024 End: 08-01-2024 Office outpatient visit 25 minutes Kamila Pride PSYCHOLOGIST Work Phone: [facility] Comment on above: SOB (shortness of br eath) (Primary Dx); Chronic cough; Lumbosacral spondylosis without myelopathy; Seasonal allergic rhinitis, unspecified trigger; Age-related osteoporosis without current pathological fracture (CMS/HCC) Start: 08-01-2024 End: 08-01-2024 ambulatory KAMILA PRIDE Not Available Start: 07-26-2024 End: 07-26-2024 ambulatory KAMIAL PRIDE Not Available Start: 07-18-2024 End: 07-18-2024 Clinisync Result Encounter Roc Steele MD Work Phone: [facility] External Department Unsolicited Start: 07-18-2024 End: 07-18-2024 Clinisync Result Encounter Roc Steele MD Work Phone: [facility] External Department Unsolicited Start: 07-15-2024 End: 07-15-2024 Office consultation new/estab patient 60 min Amber Hawley MD Work Phone: [facility] Comment on above: Encounter to [facility] with new doctor; Paroxysmal supraventricular tachycardia (CMS-HCC); Abnormal EKG; Lightheadedness; Chest discomfort; Palpitations; Primary hypertension; Stenosis of carotid artery, unspecified laterality; Mixed hyperlipidemia; Stage 3a chronic kidney disease (Multi); Gastroesophageal reflux disease without esophagitis; At high risk for falls; Uses roller walker; Severe obesity (BMI >= 40) (Multi); Never smoked cigarettes Start: 07-15-2024 End: 07-15-2024 ambulatory [facility] Start: 07-11-2024 End: 07-11-2024 Assay of hemosiderin, quant Kamila Pride PSYCHOLOGIST Work Phone: [facility] Start: 07-11-2024 End: 07-11-2024 Patient encounter procedure Kamila Pride PSYCHOLOGIST Work Phone: [facility] Comment [...] Start: 07-03-2024 End: 07-03-2024 Bamboo flowshien Pride PSYCHOLOGIST Work Phone: [facility] Start: 07-03-2024 End: 07-03-2024 Bamboo flowshien Pride PSYCHOLOGIST Work Phone: [facility] Start: 07-03-2024 End: 07-03-2024 Office outpatient visit 25 minutes Kamila Pride PSYCHOLOGIST Work Phone: [facility] Comment on above: Paroxysmal supravent ricular tachycardia (CMS/HCC) (Primary Dx); Primary insomnia; Acute congestive heart failure, unspecified heart failure type (CMS/HCC); Stage 3b chronic kidney disease (HCC) (CMS/HCC); Weakness; Other fatigue; Pain of right hip; Fall, initial encounter Start: 07-03-2024 End: 07-03-2024 ambulatory KAMILA PRIDE Not Available Start: 06-11-2024 End: 06-11-2024 Bamboo flowshien Pride PSYCHOLOGIST Work Phone: [facility] Start: 06-11-2024 End: 06-11-2024 Bamboo flowshien Pride PSYCHOLOGIST Work Phone: [facility] Start: 06-11-2024 End: 06-11-2024 Office outpatient visit 25 minutes Kamila Pride PSYCHOLOGIST Work Phone: [facility] Comment on [...] 05-22-2024 End: 05-22-2024 Bamboo flowsheet Kamila Pride PSYCHOLOGIST Work Phone: [facility] Start: 05-22-2024 End: 05-22-2024 Bamboo flowsheet Kamila Pride PSYCHOLOGIST Work Phone: [facility] Start: 05-22-2024 End: 05-22-2024 Office outpatient visit 25 minutes Kamila Pride PSYCHOLOGIST Work Phone: [facility] Comment on [...] End: 05-16-2024 Clinisync Result Encounter Kamila Pride PSYCHOLOGIST Work Phone: [facility] External Department Unsolicited Start: 05-15-2024 End: 05-15-2024 Office outpatient visit 25 minutes Kamila Pride PSYCHOLOGIST Work Phone: [facility] Comment on [...] Office outpatient visit 25 minutes Kamila Pride PSYCHOLOGIST Work Phone: [facility] Comment on [...] Start: 04-29-2024 End: 04-29-2024 ambulatory Mala Sapp Facility:[facility] Start: 04-15-2024 End: 04-16-2024 Refill Kamila Pride PSYCHOLOGIST Work Phone: [facility] Comment on above: Primary insomnia Start: 04-04-2024 End: 04-04-2024 Orders Only Kamila Pride PSYCHOLOGIST Work Phone: [facility] Comment on above: Acute pulmonary omid a (CMS/HCC) (Primary Dx); Hypokalemia Start: 04-03-2024 End: 04-03-2024 Bamboo flowsheet Kamila Pride PSYCHOLOGIST Work Phone: [facility] Start: 04-03-2024 End: 04-03-2024 Bamboo flowsheet Kamila Pride PSYCHOLOGIST Work Phone: [facility] Start: 04-03-2024 End: 04-03-2024 ambulatory KAMILA PRIDE Not Available Start: 04-03-2024 End: 04-03-2024 Office outpatient visit 25 minutes Kamila Pride PSYCHOLOGIST Work Phone: [facility] Comment on above: Acute cough (Primary Dx); Rib pain; Fall, initial encounter; Shortness of breath; Lumbosacral spondylosis without myelopathy; Pain of right hand; Right wrist pain; Acute non-recurrent sinusitis of other sinus Start: 04-03-2024 End: 04-03-2024 ambulatory KAMILA PRIDE Not Available Start: 03-07-2024 End: 03-07-2024 Bamboo flowsheet Rejijean-claude Dugan DO Work Phone: [facility] [employer] [address] Start: 03-07-2024 End: 03-07-2024 Bamboo flowsheet Waqas Dixonett DO Work Phone: [employer] [address] Start: 03-07-2024 End: 03-07-2024 Patient encounter procedure Waqas Dugan DO Work Phone: [facility] [facility] Comment on above: Carpal tunnel syndro me on left (Primary Dx) Start: 03-07-2024 End: 03-07-2024 ambulatory WAQAS DUGAN Not Available Start: 03-05-2024 End: 03-05-2024 Bamboo flowsheet Kamila Pride PSYCHOLOGIST Work Phone: [facility] Start: 03-05-2024 End: 03-05-2024 Bamboo flowsheet Kamila Pride PSYCHOLOGIST Work Phone: [facility] Start: 03-05-2024 End: 03-05-2024 Office outpatient visit 25 minutes Kamila Pride PSYCHOLOGIST Work Phone: [facility] Comment on above: Cellulitis of finger of left hand (Primary Dx); Flu vaccine need; Numbness of hand; Encounter for screening mammogram for malignant neoplasm of breast; Lymphadenopathy; Axillary pain, left; Ankylosing spondylitis of thoracic region ([facility]) Start: 03-05-2024 End: 03-05-2024 ambulatory [...] on above: Benign essential hyp ertension ([facility]) Start: 12-14-2023 End: 12-14-2023 ambulatory [...] 10-04-2022 Patient encounter procedure [facility] Work Phone: [facility] [place] Work Phone: Start: 10-04-[address] Roc Steele II Facility:[id number] Start: 09-05-2022 End: 09-05-[address] SARABJIT CORNEJO . Facility:[facility] Start: 09-03-2022 End: 09-03-2022 ambulatory SASHA DUTTA . Facility:[facility] Start: 06-06-2022 End: 06-07-[address] ROC STEELE Facility:[facility] Start: 12-16-2020 Patient encounter procedure Mone Weiss MD Work Phone: [facility] [place] Work Phone: Start: 11-25-2020 Chart Update Tasia Crawford Work Phone: [facility] [place] Work Phone: Start: 10-15-2020 Patient encounter procedure Carmen Bird MD Work Phone: [facility] [place] Work Phone: Start: 02-13-2020 Patient encounter procedure Tasia Bird [facility] [place] Work Phone: Start: 01-16-2020 Patient encounter procedure Tasia Bird [facility] [place] Work Phone: [...] 07-11-2024 Hemoglobin glycosyla isabel a1c Kamila Pride PSYCHOLOGIST Work Phone: Start: 05-16-2024 ALL BASIC METABOLIC PANEL Kamila Pride PSYCHOLOGIST Work Phone: Start: 05-12-2024 BLOOD CULTURE 1 Generic External Data Provider Start: 03-07-2024 End: 03-07-2024 Needle emg ea extremty w/paraspinl area complete Waqas Dugan DO Work Phone: Implantation of join t prosthesis Tasia Bird Plan of Treatment Date Care Activity Detail Author Start: 07-26-2029 Lipid panel Lipid Panel [facility] Start: 07-26-2026 Screening for osteoporosis Bone Density Scan [facility] Start: 09-18-2025 Echocardiography Echocardiogram [facility] Start: 05-16-2025 End: 05-16-2025 Patient encounter procedure 05/16/2025 2:00 PM EST Office Visit [facility] [address] [facility] [address] [place] [address] Amber Hawley MD [address] [facility] [address] [place], [place] [phone] [facility] Start: 12-30-2024 Influenza vaccination Influenza Vaccine (#1) [facility] Start: 12-19-2024 End: 12-19-2024 Patient encounter procedure 12/19/2024 3:00 PM EDT Procedure Visit [facility] [address] [place] [phone] Alex Alfredo DPM [address] [facility] [address] [place] [address] [facility] Start: 11-20-2024 End: 11-20-2024 Professional / ancillary services management 11/20/2024 2:00 PM EDT Ancillary Procedure [address] [phone] [facility] Start: 2024 End: 2024 Patient encounter procedure 2024 2:15 PM EDT Office Visit [address] [address] Amber Hawley MD [address] [facility] [address] [place], [place] [id number] 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 Start: 10-30-2024 End: 10-30-2024 Patient encounter procedure 10/30/2024 11:30 AM EDT Office Visit [facility] [address] [facility] [address] [place] [phone] Kamila Pride, PSYCHOLOGIST [address] [place] [address] [facility] Start: 10-16-2024 End: 10-16-2024 Patient encounter procedure [facility] Comment on above: Arrived Start: 10-10-2024 End: 10-10-2024 Patient encounter procedure 10/10/2024 3:00 PM EDT Procedure Visit [facility] [address] [facility] [address] [place] [phone] Alex Alfredo, DPRen [address] [facility] [address] [place] [address] [facility] Start: 09-19-2024 End: 09-19-2024 Professional / ancillary services management 09/19/2024 1:00 PM EDT Ancillary Procedure [facility] [address] [place] [address] [address] [place] [address] [facility] Start: 09-19-2024 End: 09-19-2024 Patient encounter procedure Sangeetha [facility] Start: 09-19-2024 Subsequent hospital visit by physician 09/19/2024 11:30 AM EDT Hospital Encounter Sangeetha [facility] [address] [facility] [address] [place] [phone] Sangeetha Pizarrolake [facility] Start: 09-18-2024 End: 09-18-2024 Patient encounter procedure Sangeetha Pizarrolake [facility] Start: 08-01-2024 End: 08-01-2024 Patient encounter procedure [facility] Comment on above: Arrived Start: 07-23-2024 End: 07-23-2024 Professional / ancillary services management 07/23/2024 11:30 AM EDT Ancillary Procedure [facility] [address] [facility] [address] [place] [phone] [facility] Start: 07-15-2024 End: 07-15-2025 Holter monitor study 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 Cardiac Services Routine Paroxysmal supraventricular tachycardia (CMS-HCC) Abnormal EKG Lightheadedness Chest discomfort Palpitations Expected: 07/15/2024 (Approximate), Expires: 07/15/2025 [facility] Work Phone: Comment on above: Expected: 07/15/2024 (Approximate), Expi res: 07/15/2025 Start: 07-15-2024 End: 07-15-2026 NM Heart Perfusion W stress and W radionuclide IV Nuclear Stress Test Cardiac Nuclear Medicine Routine Lightheadedness Chest discomfort Palpitations Mixed hyperlipidemia Expected: 07/15/2024 (Approximate), Expires: 07/15/2026 [facility] Work Phone: Comment on above: Expected: 07/15/2024 (Approximate), Expi res: 07/15/2026 Start: 07-15-2024 End: 07-15-2026 US Heart Transthoracic Transthoracic Echo Complete Echocardiography Routine Paroxysmal supraventricular tachycardia (CMS-HCC) Abnormal EKG Palpitations Expected: 07/15/2024 (Approximate), Expires: 07/15/2026 [facility] Service Area Work Phone: Comment on above: Expected: 07/15/2024 (Approximate), Expi res: 07/15/2026 Start: 07-11-2024 End: 07-11-2025 DXA Skeletal system Views for bone density DEXA bone density Imaging Routine Osteopenia of both hips Decreased estrogen level Expected: 07/11/2024, Expires: 07/11/2025 [facility] Work Phone: Comment on above: Expected: 07/11/2024, Expires: Start: 07-11-2024 End: 07-11-2025 Lipid 1996 panel - Serum or Plasma Lipid panel Lab Routine Hyperlipidemia, unspecified hyperlipidemia type (CMS/HCC) Medicare annual wellness visit, subsequent Expected: 07/11/2024 (Approximate), Expires: 07/11/2025 [facility] Comment on above: Expected: 07/11/2024 (Approximate), Expi [...] [address] [place] [phone] Kamila Pride PSYCHOLOGIST [address] [place] [address] [facility] Start: 07-06-2024 Medicare Annual Wellness Visit Medicare Annual Wellness Visit (AWV) [facility] Start: 07-05-2024 Medicare Annual Wellness [...] [address] [facility] [address] [place] [address] Kamila Pride NP [address] [facility] [address] [place] [address] Arrived [facility] Comment on above: Arrived Start: 06-11-2024 End: 06-11-2025 Natriuretic peptide B [Mass/volume] in Blood B-type natriuretic peptide Lab Routine Acute congestive heart failure, unspecified heart failure type ([facility]) Expected: 06/11/2024 (Approximate), Expires: 06/11/2025 [facility] Work Phone: Comment on above: Expected: 06/11/2024 (Approximate), Expi res: 06/11/2025 Start: 06-11-2024 End: 06-11-2024 Patient encounter procedure 06/11/2024 11:00 AM EST Office Visit [facility] [address] [facility] [address] [place] [address] Kamila Pride NP [address] [facility] [address] [place] [address] Arrived [facility] Comment on above: Arrived Start: 05-23-2024 End: 05-23-2024 Patient encounter procedure 05/23/2024 2:40 PM EST Procedure Visit [facility] [address] [facility] [address] [place] [address] Alex Alfredo DPM [address] [address] [facility] Start: 05-22-2024 End: 05-22-2025 CBC panel - Blood by Automated count CBC Lab Routine Stage 3b chronic kidney disease (HCC) ([facility]/HCC) Expected: 05/22/2024 (Approximate), Expires: 05/22/2025 [facility] [...] [address] [place] [address] Kamila Pride PSYCHOLOGIST [address] [place] [address] Arrived [facility] Comment on above: Arrived Start: 05-16-2024 End: 05-16-2024 Patient encounter procedure 05/16/2024 1:00 PM EST Office Visit [facility] [address] [place] [address] Kamila Pride PSYCHOLOGIST [address] [place] [address] [facility] Start: 05-15-2024 End: 05-15-2025 [...] [address] [place] [address] Kamila Pride, PSYCHOLOGIST [address] [place] [address] [facility] Start: 05-14-2024 End: 05-14-2024 Patient encounter procedure 05/14/2024 11:00 AM EST Office Visit [facility] [address] [place] [address] Kamila Pride, PSYCHOLOGIST [address] [place] [address] [facility] Start: 05-02-2024 End: 05-02-2024 Patient encounter procedure 05/02/2024 2:50 PM EST Procedure Visit [facility] [address] [place] [address] Alex Alfredo, DPRen [address] [facility] 5 [place], [place] [id number] [facility] Start: 04-03-2024 End: 04-03-2025 [...] [address] [place] [address] Kamila Pride, PSYCHOLOGIST [address] [place] [address] Arrived [facility] Comment on above: Arrived Start: 03-07-2024 End: 03-07-2024 Patient encounter procedure 03/07/2024 11:00 AM EST Procedure Visit [facility] [address] [place] [id number] Waqas Dugan DO [address] [place] [address] Numbness of hand [facility] Comment on above: Numbness of [...] [address] [facility] [address] [place] [id number] Kamila Pride NP [address] [facility] [address] [place] [address] [facility] Start: 02-22-2024 End: 02-22-2024 Patient encounter procedure [facility] Comment on above: Pain due to onychomycosis of toenails of both feet (Primary Dx) Start: 01-31-2024 Influenza vaccination Influenza Vaccine (#1) [facility] Comment on above: Postponed from 12/31/2023 (Other Medical Reasons) Start: 12-31-2023 COVID-19 Vaccine ( season) COVID-19 Vaccine () [facility] Start: 12-31-2023 Influenza vaccination Influenza Vaccine (#1) [facility] Start: 07-27-2023 End: 07-27-2023 Patient encounter procedure 07/27/2023 3:30 PM EDT Procedure Visit [facility] [address] [facility] [address] [place] [address] Alex Alfredo, EJM [address] [address] [facility] Start: 06-30-2023 Medicare Annual Wellness (AWV) Medicare Annual Wellness (AWV) [facility] Start: 06-29-2023 End: 06-29-2023 Patient encounter procedure 06/29/2023 2:30 PM EST Office Visit [facility] [address] [facility] [address] [place] [address] Alex Alfredo DPM [address] [address] [facility] Start: 06-15-2023 End: 06-15-2023 Patient encounter procedure 06/15/2023 2:30 PM EST Office Visit [facility] [address] [address] Alex Alfredo DPM [address] [address] [facility] Start: 10-21-2022 Screening for osteoporosis Bone Density Scan [facility] Start: 10-17-2022 NPV, Provider: Roc Alvarado, Status: Pen, Time: 1:30 PM NPV, Provider: Roc Alvarado, Status: Pen, Time: 1:30 PM [facility] Work Phone: Start: 2021 RSV High Risk: (Elderly (60+) or Population) (1 - 1-dose 75+ series) RSV High Risk: (Elderly (60+) or Population) (1 - 1-dose 75+ series) [facility] Start: 01-29-2021 Creatinine measurement Creatinine Level [facility] Start: 01-29-2021 Diabetes mellitus screening Diabetes Screening [facility] Start: 01-29-2021 Potassium measurement Potassium Level [facility] Start: 01-07-2021 FUV, Provider: Tasia Bird, Status: Pen, Time: 2:15 PM FUV, Provider: Tasia Bird, Status: Pen, Time: 2:15 PM -[facility] Work Phone: Start: 12-03-2020 FUV, Provider: Tasia Bird, Status: Pen, Time: 12:45 PM FUV, Provider: Tasia Bird, Status: Pen, Time: 12:45 PM [facility] Work Phone: Start: 1968 DTaP/Tdap/Td Vaccines (1 - Tdap) DTaP/Tdap/Td Vaccines (1 - Tdap) [facility] Start: 1965 Urine screening for protein CKD: Urine Protein Screening [facility] Start: 1964 Diabetes mellitus screening Diabetes Screening [facility] Start: 1964 Hepatitis C screening Hepatitis C Screening [facility] Start: 1945 Echocardiography Echocardiogram [facility] Start: 1945 Lipid panel Lipid Panel [facility] BLOOD CULTURE 1 BLOOD CULTURE 1 Lab Routine 05/12/2024 8:10 PM EST [facility] Healthcare End: 09-18-2024 NM Heart Perfusion W stress and W radionuclide IV [facility] Work Phone: Comment on above: Once for 1 Occurrences starting 09/19/19 until 09/18/2024 Immunizations Immunization Date Immunization Notes Care Provider Hao allred 03-05-2024 Influenza, High-dose Seasonal, Quadrivalent, Preservative Free Kamila Pride NP Work Phone: [facility] 03-05-2024 influenza virus vacc ine, unspecified formulation Amber Hawley MD Work Phone: [facility] Work Phone: 03-01-2023 Influenza, High-dose Seasonal, Quadrivalent, Preservative Free Alex Alfredo DPM Work Phone: [facility] 03-01-2023 influenza virus vacc ine, unspecified formulation Roc Steele MD Work Phone: [facility] 03-31-2022 Moderna Bivalent Pereira ster Vaccination Alex Alfredo DPM Work Phone: [facility] 03-23-2022 Influenza, High-dose Seasonal, Quadrivalent, Preservative Free Alex Alfredo DPM Work Phone: [facility] 01-28-2021 Influenza, Seasonal, Quadrivalent, Adjuvanted Alex Alfredo DPM Work Phone: [facility] 01-30-2020 influenza, injectabl e, quadrivalent, preservative free Alex Alfredo DPM Work Phone: [facility] 09-26-2019 zoster vaccine recombinant Alex Alfredo DPM Work Phone: [facility] 05-16-2019 zoster vaccine recombinant Alex Alfredo DPM Work Phone: [facility] 01-31-2018 influenza, high dose seasonal, preservative-free Alex Alfredo DPM Work Phone: [facility] 01-25-2017 influenza, high dose seasonal, preservative-free Alex Alfredo DPM Work Phone: [facility] 02-02-2016 influenza, injectabl e, quadrivalent, contains preservative Alex Alfredo DPM Work Phone: [facility] 02-07-2015 pneumococcal conjuga te vaccine, 13 valent Alex Alfredo DPM Work Phone: [facility] 01-30-2015 seasonal influenza, intradermal, preservative free Alex Alfredo DPM Work Phone: [facility] 02-07-2014 seasonal influenza, intradermal, preservative free Alex Alfredo DPM Work Phone: [facility] 12-11-2013 pneumococcal polysaccharide vaccine, 23 valent Alex Alfredo DPM Work Phone: [facility] 01-17-2012 zoster vaccine, live Zoya Alfredo DPM Work Phone: [facility] Payers Date Payer Category Payer Private Health Insurance [id number] 2022 Unknown 2008 Medicare [id number] 2008 Medicare [id number] 1959 Medicare [id number] 1959 Unknown [id number] 1946 Unknown [id number] 2.16.84 0.1.651753.3.579.2.593 1946 Unknown [id number] 2.16.84 0.1.862340.3.579.2.593 1946 Unknown [id number] 2.16.84 0.1.346244.3.579.2.593 1946 Unknown [id number] 2.16.8 40.1.537470.3.579.2.1068 1946 Unknown [id number] 2.16.8 40.1.360190.3.579.2.1259 1946 Unknown [id number] 2.16.8 40.1.415989.3.579.2.1259 1946 Unknown [id number] 2.16.84 0.1.012508.3.579.2.1259 1946 Unknown [id number] 2.16.84 0.1.682097.3.579.2.1259 1946 Unknown [id number] 2.16.84 0.1.377547.3.579.2.125 1946 Unknown [id number] 2.16.84 0.1.148628.3.579.2.1259 1946 Unknown [id number] 2.16.84 0.1.540233.3.579.2.125 1946 Unknown [id number] 2.16.84 0.1.243712.3.579.2.125 1946 Unknown [id number] 2.16.84 0.1.717261.3.579.2.1258 1946 Unknown [id number] 2.16.84 0.1.023735.3.579.2.1258 1946 Unknown [id number] 2.16.84 0.1.145795.3.579.2.1258 1946 Unknown [id number] 2.16.84 0.1.024069.3.579.2.1258 1946 Unknown [id number] 2.16.84 0.1.617181.3.579.2.1258 1946 Unknown [id number] 2.16.84 0.1.624832.3.579.2.125 1946 Unknown [id number] 2.16.84 0.1.805946.3.579.2.125 1946 Unknown [id number] 2.16.84 0.1.159827.3.579.2.125 1946 Unknown [id number] 2.16.84 0.1.564871.3.579.2.125 1946 Unknown [id number] 2.16.84 0.1.040268.3.579.2.1259 1946 Unknown [id number] 2.16.84 0.1.048605.3.579.2.1259 1946 Unknown [id number] 2.16.84 0.1.240898.3.579.2.1259 1946 Unknown [id number] 2.16.84 0.1.685801.3.579.2.1259 1946 Unknown [id number] 2.16.84 0.1.278970.3.579.2.1259 1946 Unknown [id number] 2.16. 840.1.103713.3.579.2.196 1946 Unknown [id number] 2.16. 840.1.808563.3.579.2.196 1946 Unknown [id number] 2.16. 840.1.519147.3.579.2.196 1946 Unknown [id number] 2.16. 840.1.727123.3.579.2.4 1946 Unknown [id number] 2.16. 840.1.172301.3.579.2.1244 1946 Unknown [id number] 2.16. 840.1.356373.3.579.2.4 1946 Unknown [id number] 2.16.8 40.1.237476.3.579.2.1246 1946 Unknown [id number] 2.16.8 40.1.671223.3.579.2.1246 1946 Unknown [id number] 2.16.8 40.1.553795.3.579.2.1246 1946 Unknown [id number] 2.16.8 40.1.797668.3.579.2.1246 1946 Unknown [id number] 2.16.8 40.1.116933.3.579.2.1246 1946 Unknown [id number] 2.16.8 40.1.098173.3.579.2.1246 Social History Date Type Detail Facility Start: [...] 09-18-2024 Exposure to SARS-CoV-2 (event) Not sure [facility] Start: 2024 Alcoholic beverage intake Ex-drinker (finding) [facility] Work Phone: NEGATED: Highlighted row - - [facility] [place] Work Phone: Medical Equipment Procedure Code Equipment Code Equipment Original Text Equipment Identifier Dates Screw, Low Profile Hex, 6.5 X 15 Mm Case [id number] Start: 01-29-2020 Comment on above: Description: Convert ed from [facility]. Please see archived information for full log information. Screw, Low Profile Hex, 6.5 X 25 Mm Case [id number] Start: 01-29-2020 Comment on above: Description: Convert ed from [facility]. Please see archived information for full log information. Head, Femur V40 36mm +2.5mm Biolox Delta Case [id number] Start: 01-29-2020 Comment on above: Description: Convert ed from [facility]. Please see archived information for full log information. Stem, Femur 132d Sz 5 [place] Ii Case [id number] Start: 01-29-2020 Comment on above: Description: Convert ed from [facility]. Please see archived information for full log information. Shell, Trident Ii, Clusterhole, [place] 52e Case [id number] Start: 01-29-2020 Comment on above: Description: Convert ed from [facility]. Please see archived information for full log information. Liners, Poly 36 X 10 D Trid Crossfire E Case [id number] Start: 01-29-2020 Comment on above: Description: Convert ed from [facility]. Please see archived information for full log information. Functional Status Date Assessment Result Facility 10-16-2024 Patient Health Questionnaire 2 item (PHQ-2) [Reported] [facility] 08-19-2024 Patient Health Questionnaire 2 item (PHQ-2) [Reported] [facility] Healthcare NEGATED: Highlighted row Functional performance Functional status health issues are not documented Disease [facility] [place] Work Phone: Mental Status Date Assessment Result Facility NEGATED: Highlighted row Cognitive function [Interpretation] Cognitive status health issues are not documented Disease [facility] [place] Work Phone: Clinical Notes [...] 03/26/2019 T12-L3 MT TOTAL HIP ARTHROPLASTY Left [place] (01-29-2020 to 01-30-2020) RADIOFREQUENCY ABLATION Left 06/25/2019 [...] (NEURONTIN) 300 mg, 2 times daily HYDROcodone-acetaminophen ([place]) 5-325 mg tablet 1 tablet, Every 4 [...] XL (TOPROL-XL) 50 mg, oral, Every morning sdaqqveehyst-Cw-fizp-minerals tablet 1 tablet, Daily nortriptyline (PAMELOR) 30 [...] (241.3 mg elemental) tablet 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 Mixed hyperlipidemia simvastatin (Zocor) 10 mg [...] accurate and complete. documented in this encounter [facility] Work Phone: 2024 Instructions Katty [...] instructions on exercise. documented in this encounter [facility] Work Phone: 10-17-2024 Telephone encounter Note Luma was seen yesterday called stating that her medication was not sent in yet. Please send meds to [facility] in [place] [facility] 10-17-2024 Miscellaneous Notes Luma was seen yesterday called stating that her medication was not sent in yet. Please send meds to [facility] in [place] documented in this encounter [facility] 10-16-2024 History of Present illness Narrative Images [...] 03/26/2019 T12-L3 MT TOTAL HIP ARTHROPLASTY Left [place] (01-29-2020 to 01-30-2020) RADIOFREQUENCY ABLATION Left 06/25/2019 [...] follow-ups on file. documented in this encounter [facility] 10-10-2024 History of Present illness Narrative Patient: [...] surgery multiple times HTN (hypertension) (CMS/HCC) Hyperlipidemia ([facility]) Insomnia Lumbago Lumbosacral spondylosis without myelopathy Myalgia, unspecified site Myositis Occlusion and stenosis of unspecified carotid artery without mention of cerebral infarction CARO (obstructive sleep apnea) Osteoarthrosis unspecified wheteher generalized or localized. unspecified site Osteopenia Paroxysmal supraventricular tachycardia ([facility]) Medications: Current Outpatient Medications: albuterol HFA (Ventolin [...] min Stress: No Stress Concern Present (11/25/2022) [place] - Occupational Stress Questionnaire Feeling of Stress : Only a little Social Connections: Moderately Isolated (11/25/2022) Social Connection and Isolation Panel [NHANES] Frequency of Communication with Friends and Family: More than three times a week Frequency of Social Gatherings with Friends and Family: Once a week Attends Yazdanism Services: Never Active Member of Clubs or [...] Alex Alfredo DPM documented in this encounter [facility] 08-19-2024 History of Present illness Narrative Images [...] MOUTH TWICE DAILY 200 capsule 3 HYDROcodone-acetaminophen ([place]) 5-325 MG tablet Take 1 tablet by [...] 03/26/2019 T12-L3 MT TOTAL HIP ARTHROPLASTY Left [place] (01-29-2020 to 01-30-2020) RADIOFREQUENCY ABLATION Left 06/25/2019 [...] visit: Age-related osteoporosis without current pathological fracture ([facility]) - Prolia injection today. Osteopenia of both hips Chronic cough - Consider ENT referral if it persists. Follow up in about 2 months (around 10/19/2024). documented in this encounter [facility] 08-01-2024 History of Present illness Narrative Patient: [...] Date Cardiomegaly Diverticulosis 2013 Edema Glaucoma ([facility]) Heart disease, unspecified History of [...] min Stress: No Stress Concern Present (11/25/2022) [place] - Occupational Stress Questionnaire Feeling of Stress : Only a little Social Connections: Moderately Isolated (11/25/2022) Social Connection and Isolation Panel [NHANES] Frequency of Communication with Friends and Family: More than three times a week Frequency of Social Gatherings with Friends and Family: Once a week Attends Yazdanism Services: Never Active Member of Clubs or [...] Alex Alfredo DPM documented in this encounter [facility] 08-01-2024 History of Present illness Narrative Images [...] 03/26/2019 T12-L3 MT TOTAL HIP ARTHROPLASTY Left [place] (01-29-2020 to 01-30-2020) RADIOFREQUENCY ABLATION Left 06/25/2019 [...] lozenges. Lumbosacral spondylosis without myelopathy - HYDROcodone-acetaminophen ([place]) 5-325 MG tablet; Take 1 tablet by [...] Age-related osteoporosis without current pathological fracture ([facility]) - denosumab (Prolia) 60 MG/ML solution prefilled syringe; Inject 1 mL (60 mg) under the skin 1 (one) time for 1 dose Avoid falls as you can fracture. Take calcium with vitamin D. If you get this medication from your insurance, call the office and we can give you the medication No follow-ups on file. documented in this encounter [facility] 07-15-2024 Note Normal sinus rhythm 93 bpm voltage criteria for left ventricular hypertrophy abnormal R wave progression, 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 Compared to EKG from December 2019, left axis deviation loss of lateral R waves were noted in December 2019. [facility] 07-15-2024 History of Present illness Narrative [...] wheeled walkers. Subjective : Was hospitalized at [facility] in May 2024. She was told [...] 03/26/2019 T12-L3 MT TOTAL HIP ARTHROPLASTY Left [place] (01-29-2020 to 01-30-2020) RADIOFREQUENCY ABLATION Left 06/25/2019 [...] ALPRAZolam (XANAX) 0.25 mg, Nightly PRN HYDROcodone-acetaminophen ([place]) 5-325 mg tablet 1 tablet, Every 4 [...] tablet Transthoracic Echo Complete 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 3. Abnormal EKG Transthoracic Echo Complete 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 Lightheadedness Nuclear Stress Test 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 5. Chest discomfort Nuclear Stress Test 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 6. Palpitations Transthoracic Echo Complete Nuclear Stress Test 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 7. Primary hypertension 8. Stenosis of carotid [...] questions arise, Sincerely, Amber Hawley MD [facility] Katty De La Cruz LPN am scribing for, and in the presence of Dr. Amber Hawley MD, FAC. I, Dr. Amber Hawley MD, FACC, personally performed the services described in the documentation as scribed by Katty Iverson LPN in my presence, and confirm it is both accurate and complete. documented in this encounter [facility] Work Phone: 07-15-2024 Instructions Katty [...] instructions on exercise. documented in this encounter [facility] Work Phone: 07-11-2024 History of [...] Do you have a medical power of rotoformer backtender?: Yes Who is your medical power of rotoformer backtender?: Objective : BP 130/80 Pulse 87 Ht [...] Morbid obesity due to excess calories ([facility]) Discussed goal of BMI < [...] time. 22. Hyperlipidemia, unspecified hyperlipidemia type ([facility]/HCC) This is a chronic medical condition that [...] panel 27. [facility] Reviewed all relevant preventative screenings with the patient in detail. Medicare Wellness form completed and will be scanned into patient's chart. All needed testing was ordered. Will continue with yearly Medicare Wellness exams. No orders of the defined types were placed in this encounter. Electronically signed by Kamila Pride NP on July 11, 2024 documented in this encounter [facility] 07-03-2024 History of Present illness Narrative Images [...] 03/26/2019 T12-L3 MT TOTAL HIP ARTHROPLASTY Left [place] (01-29-2020 to 01-30-2020) RADIOFREQUENCY ABLATION Left 06/25/2019 [...] as she wants to go to the sand miller that her goes to. Primary insomnia - [...] as she wants to go to the sand miller that her goes to. Stage 3b chronic [...] follow-ups on file. documented in this encounter [facility] 06-11-2024 History of Present illness Narrative Images [...] for 3 days and she called the java solutions architect nurse and they advised her to go [...] 03/26/2019 T12-L3 MT TOTAL HIP ARTHROPLASTY Left [place] (01-29-2020 to 01-30-2020) RADIOFREQUENCY ABLATION Left 06/25/2019 [...] to follow up with Dr. Chavez in [place] [facility]. Await his recommendations. She continue on [...] follow-ups on file. documented in this encounter [facility] 05-23-2024 History of Present illness Narrative Patient: [...] lumbar surgery multiple times HTN (hypertension) ([facility]) Hyperlipidemia ([facility]) Insomnia Lumbago Lumbosacral spondylosis without myelopathy Myalgia, unspecified site Myositis Occlusion and stenosis of unspecified carotid artery without mention of cerebral infarction CARO (obstructive sleep apnea) Osteoarthrosis unspecified wheteher generalized or localized. unspecified site Osteopenia Paroxysmal supraventricular tachycardia ([facility]) Medications: Current Outpatient Medications: ALPRAZolam [...] min Stress: No Stress Concern Present (11/25/2022) [place] of Occupational Health - Occupational Stress Questionnaire Feeling of Stress : Only a little Social Connections: Moderately Isolated (11/25/2022) Social Connection and Isolation Panel [NHANES] Frequency of Communication with Friends and Family: More than three times a week Frequency of Social Gatherings with Friends and Family: Once a week Attends Yazdanism Services: Never Active Member of Clubs or [...] Alex Alfredo DPM documented in this encounter [facility] 05-22-2024 History of Present illness Narrative Images [...] 03/26/2019 T12-L3 MT TOTAL HIP ARTHROPLASTY Left [place] (01-29-2020 to 01-30-2020) RADIOFREQUENCY ABLATION Left 06/25/2019 [...] follow-ups on file. documented in this encounter [facility] 05-15-2024 History of Present illness Narrative Images [...] She verbalized understanding. The hospital set up [facility] but we will set pt up with [facility] as they have a contract with [facility] [...] 03/26/2019 T12-L3 MT TOTAL HIP ARTHROPLASTY Left [place] (01-29-2020 to 01-30-2020) RADIOFREQUENCY ABLATION Left 06/25/2019 [...] follow-ups on file. documented in this encounter [facility] 05-07-2024 History of Present illness Narrative Images [...] TWICE DAILY 200 capsule 3 [] HYDROcodone-acetaminophen ([place]) 5-325 MG tablet Take 1 tablet by [...] (CMS/HCC) Body mass index (BMI) 45.0-49.9, adult ([facility]) Discussed goal of BMI < [...] follow-ups on file. documented in this encounter [facility] 04-16-2024 Telephone encounter Note OARRS reviewed, Rx sent into patient's pharmacy. [facility] 04-16-2024 Miscellaneous Notes OARRS reviewed, Rx sent into patient's pharmacy. documented in this encounter [facility] 04-03-2024 History of Present illness Narrative Images [...] breathing, coughing, lifting and movement. Treatments tried: [place], cough syrup, muscle relaxer. The treatment provided [...] TWICE DAILY 200 capsule 3 [] HYDROcodone-acetaminophen ([place]) 5-325 MG tablet Take 1 tablet by [...] 03/26/2019 T12-L3 MT TOTAL HIP ARTHROPLASTY Left [place] (01-29-2020 to 01-30-2020) RADIOFREQUENCY ABLATION Left 06/25/2019 [...] breathing. Lumbosacral spondylosis without myelopathy - HYDROcodone-acetaminophen ([place]) 5-325 MG tablet; Take 1 tablet by [...] follow-ups on file. documented in this encounter [facility] 03-07-2024 Note Carpal tunnel syndro me, left, severe. Progressed substantially when compared to EDX evaluation in 2021. C8 radiculopathy, left, moderate. Progressed when compared to EDX evaluation in 2021 [facility] 03-07-2024 Note Carpal tunnel syndro me, left, severe. Progressed substantially when compared to EDX evaluation in 2021. C8 radiculopathy, left, moderate. Progressed when compared to EDX evaluation in 2021 [facility] 03-07-2024 History of Present illness Narrative Images from the original note were not included. Reason for Appointment: EMG Patient: Luma Ribeiro : 1945 EMG Computer: [employer] Referring Physician: Kamila Pride CNP EMG: PABLO spool sander: Jimmy Gibson RT(R) Office Location: [place] Reason for EMG: c/o numbness/tingling in left hand/forearm especially in 2nd & 3rd digits, weakness in left hand. No hx of DM. Not on blood thinners. Comments: Procedure was explained to the patient who expressed understanding. Patient appeared to have tolerated the test well despite some discomfort due to the nature of the test. 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 documented in this encounter [facility] 02-29-2024 Telephone encounter Note OARRS reviewed, Rx sent into patient's pharmacy. [facility] 02-29-2024 Miscellaneous Notes OARRS reviewed, Rx sent into patient's pharmacy. Hydrocodone 325 DDM IN [place] She had an appt today for a med follow up with kamila but had to change it due to her not being in. She said she has about 6 pills left. She did reschedule her med follow up for next Monday. documented in this encounter [facility] 02-29-2024 Telephone encounter Note Hydrocodone 325 DDM IN [place] She had an appt today for a med follow up with kamila but had to change it due to her not being in. She said she has about 6 pills left. She did reschedule her med follow up for next Monday. [facility] 01-29-2024 Telephone encounter Note Amlodipine sent [facility] 01-29-2024 Miscellaneous Notes Amlodipine sent documented in this encounter [facility] 06-15-2023 History of Present illness Narrative Patient: [...] Date Cardiomegaly Diverticulosis 2013 Edema Glaucoma ([facility]) Heart disease, unspecified History of lumbar surgery multiple times HTN (hypertension) ([facility]) Hyperlipidemia ([facility]) Insomnia Lumbago Lumbosacral spondylosis without [...] min Stress: No Stress Concern Present (11/25/2022) [place] of Occupational Health - Occupational Stress Questionnaire Feeling of Stress : Only a little Social Connections: Moderately Isolated (11/25/2022) Social Connection and Isolation Panel [NHANES] Frequency of Communication with Friends and Family: More than three times a week Frequency of Social Gatherings with Friends and Family: Once a week Attends Yazdanism Services: Never Active Member of Clubs or [...] Patient may continue with conservative treatments including feuo-bzs-cwgrzdf anti-inflammatories and other treatments suggested today. Patient may want to be scheduled for surgical intervention in the near future. Patient have the right hallux subungual exostectomy with the lateral left hallux partial permanent nail avulsion in the near future Alex Alfredo DPM documented in this encounter [facility] 06-01-2023 History of Present illness Narrative Patient: [...] Date Cardiomegaly Diverticulosis 2013 Edema Glaucoma ([facility]) Heart disease, unspecified History of lumbar surgery multiple times HTN (hypertension) ([facility]) Hyperlipidemia ([facility]) Insomnia Lumbago Lumbosacral spondylosis without [...] min Stress: No Stress Concern Present (11/25/2022) [place] of Occupational Health - Occupational Stress Questionnaire Feeling of Stress : Only a little Social Connections: Moderately Isolated (11/25/2022) Social Connection and Isolation Panel [NHANES] Frequency of Communication with Friends and Family: More than three times a week Frequency of Social Gatherings with Friends and Family: Once a week Attends Yazdanism Services: Never Active Member of Clubs or [...] Patient may continue with conservative treatments including yhnk-cuh-acpdped anti-inflammatories and other treatments suggested today. Patient [...] Alex Alfredo DPM documented in this encounter [facility] Healthcare Evaluation note Diagnosis Subungual exostosis [...] Acute non-recurrent pansinusitis documented in this encounter [facility] HealthcareEvaluation note* Diagnosis Paroxysmal supraventricular [...] with new doctor Paroxysmal supraventricular tachycardia ([facility]-H[facility]) Paroxysmal supraventricular tachycardia Abnormal EKG Nonspecific abnormal [...] Never smoked cigarettes documented in this encounter [facility] Work Phone: Evaluation note* Diagnosis [...] Palpitations Mixed hyperlipidemia documented in this encounter [facility] Work Phone: Evaluation note* Diagnosis Paroxysmal supraventricular tachycardia Abnormal EKG Nonspecific abnormal electrocardiogram (ECG) (EKG) Palpitations documented in this encounter [facility] Work Phone: Evaluation note* Diagnosis [...] 40.0-44.9, adult (Multi) documented in this encounter [facility] Work Phone: History of Present illness NarrativeLuma is a 75-year-old female patient of Dr. Bird who is here for ultrasound-guided right intraarticular shoulder injection. She has a history of pain and discomfort. 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 Distal pulses and sensation are intact. Limited forward flexion to about 25 degrees lateral abduction to about 15 unable to perform any external rotation but internal he can get to the small of her back. Herexam does not allow for much of a true [place]'s [place] or [place]'s test. * Diagnostics: See dictated report from today, previous outside CT scan report of the humerus reviewed, and is available in the [facility] chart. * Procedure: None * Assessment: Chronic [...] patient's CT scan report reviewed in [facility] Other than the anterior medial dislocation [...] grammatical areas may persist related to the [employer] software * Taniya Al MD * [facility]: * . [facility] Work Phone: History of Present illness Narrative* [...] Date Cardiomegaly Diverticulosis 2013 Edema Glaucoma ([facility]/HCC) Heart disease, unspecified History of lumbar surgery multiple times HTN (hypertension) (CMS/HCC) Hyperlipidemia (CMS/HCC) Insomnia Lumbago Lumbosacral spondylosis without myelopathy Myalgia, unspecified site Myositis Occlusion and stenosis of unspecified carotid artery without mention of cerebral infarction CARO (obstructive sleep apnea) Osteoarthrosis unspecified wheteher generalized or localized. unspecified site Osteopenia Paroxysmal supraventricular tachycardia ([facility]) Medications: Current Outpatient Medications: ALPRAZolam [...] min Stress: No Stress Concern Present (11/25/2022) [place] Lead of Occupational Health - Occupational Stress Questionnaire Feeling of Stress : Only a little Social Connections: Moderately Isolated (11/25/2022) Social Connection and Isolation Panel [NHANES] Frequency of Communication with Friends and Family: More than three times a week Frequency of Social Gatherings with Friends and Family: Once a week Attends Yazdanism Services: Never Active Member of Clubs or [...] 9 Alex Alfredo DPM documented in this encounter[facility]AK John for visit Narrative* Other Medical (Routine) - Closed Specialty Diagnoses / Procedures Referred By Aminah beltran Referred To Contact Neurology Diagnoses Numbness of hand Procedures MT OFFICE/OUTPATIENT [facility] HIGH MDM 60 MINUTES Kamila Pride, DEISY [address] [facility] [address] [place] [address] Phone: tel: fax: Waqas Dugan DO [address] [place] [address] Phone: tel: fax: Referral ID Status Reason Start Date Expiration Date V isits Requested Visits Authorized [id number] Closed Perform Procedure 03/05/2024 09/01/2024 1 1 [facility] Cardiac Stress Testing (Routine) - Authorized Specialty Diagnoses / Procedures Referred By Aminah beltran Referred To Contact Radiology Diagnoses Lightheadedness Chest discomfort Palpitations Mixed hyperlipidemia Procedures Nuclear Stress Test CHG MYOCARDIAL SPECT MULTIPLE STUDIES Amber Hawley MD [address] [facility] [address] [place] [address] Phone: tel: fax: Referral ID Status Reason Start Date Expiration Date V isits Requested Visits Authorized [id number] Authorized 07/15/2024 07/15/2025 5 5 [facility] Work Phone: Reason for visit Narrative* Cardiac Stress Testing (Routine) - Authorized Specialty Diagnoses / Procedures Referred By Contac t Referred To Contact Radiology Diagnoses Lightheadedness Chest discomfort Palpitations Mixed hyperlipidemia Procedures Nuclear Stress Test CHG MYOCARDIAL SPECT MULTIPLE STUDIES Amber Hawley MD [address] [address] Phone: tel: fax: Referral ID Status Reason Start Date Expiration Date V isits Requested Visits Authorized [id number] Authorized 07/15/2024 07/15/2025 5 5 [facility] Work Phone: Relglc for visit Narrative* CV Imaging (Routine) - Authorized Specialty Diagnoses / Procedures Referred By Aminah t Referred To Contact Cardiology Diagnoses Paroxysmal supraventricular tachycardia Abnormal EKG Palpitations Procedures Transthoracic Echo Complete MT ECHO TTHRC R-T 2D W/WOM-MODE COMPL SPEC&COLR D Amber Hawley MD [address] [address] Phone: tel: fax: Referral ID Status Reason Start Date Expiration Date Visits Requested Visits Authorized [id number] Authorized Perform Procedure 07/15/2024 07/15/2025 1 1 [facility] Work Phone: Chief Complaint * New problem * Right shoulder pain MP Refer : RT shoulder ultra sound guided injection* Right shoulder pain, here for injection. * MP Refer : RT shoulder ultra sound guided injection * RT shoulder * Ongoing issue * X rays PAPER HANDLER today Summary Purpose Family History No Family [...] DATE CREATED AUTHOR AUTHOR'S ORGANIZ ATION 09/12/2022 [facility] dical Specialist DATE CREATED AUTHOR AUTHOR'S ORGANIZ ATION 10/09/2022 [facility] DATE CREATED AUTHOR AUTHOR'S ORGANIZ ATION 10/09/2022 [facility] DATE CREATED AUTHOR AUTHOR'S ORGANIZ ATION 05/01/2024 [facility] DATE CREATED AUTHOR AUTHOR'S ORGANIZ ATION 07/28/2024 [facility] DATE CREATED AUTHOR AUTHOR'S ORGANIZ ATION 10/19/2024 [facility] dical Specialists EPIC DATE CREATED AUTHOR AUTHOR'S ORGANIZ ATION 11/16/2024 [facility] DATE CREATED AUTHOR AUTHOR'S ORGANIZ ATION 11/22/2024 [facility] DATE CREATED AUTHOR AUTHOR'S ORGANIZ ATION 11/23/2024 [facility] Reason for Visit (unrecogniz ed section [...] 12 Lead Amber Hawley MD [address] [facility] [address] [place] [address] Phone: tel: fax: Referral ID Status Reason Start Date Expiration Date V isits Requested Visits Authorized [id number] Authorized 07/15/2024 07/15/2025 1 1 Reason Comments [...] Up In Cardiology Amber Hawley MD [address] [address] Phone: tel: fax: Amber Hawley MD [address] [address] Phone: tel: fax: Referral ID Status Reason Start Date Expiration Date V isits Requested Visits Authorized [id number] Authorized 07/15/2024 07/15/2025 1 1 Care Teams (unrecognized sec tion and content) Digital Marketing Program Manager Relationship Specialty Start Date End Date Roc Steele MD [address] [place] [address] PCP - ACO Reach 09/22/22 Roc Steele MD [address] [place] [address] PCP - General Internal Medicine 09/28/22 Digital Marketing Program Manager Relationship Specialty Start Date End Date Roc Steele MD [address] [place] [address] PCP - ACO Reach 09/22/22 Roc Steele MD [address] [place] [address] PCP - General Internal Medicine 09/28/22 Digital Marketing Program Manager Relationship Specialty Start Date End Date Roc Steele MD [address] [place] [address] PCP - ACO Reach 09/22/22 Roc Steele MD [address] [place] [address] PCP - General Internal Medicine 09/28/22 Digital Marketing Program Manager Relationship Specialty Start Date End Date Roc Steele MD [address] [place] [address] PCP - General Internal Medicine 09/28/22 Roc Steele MD [address] [place] [address] PCP - ACO Reach 08/30/23 Digital Marketing Program Manager Relationship Specialty Start Date End Date Roc Steele MD [address] [place] [address] PCP - General Internal Medicine 09/28/22 Roc Steele MD [address] [place] [address] PCP - ACO Reach 08/30/23 Digital Marketing Program Manager Relationship Specialty Start Date End Date Roc Steele MD [address] [place] [address] PCP - General Internal Medicine 09/28/22 Roc Steele MD [address] [place] [address] PCP - ACO Reach 08/30/23 Digital Marketing Program Manager Relationship Specialty Start Date End Date Roc Steele MD [address] [place] [address] PCP - General Internal Medicine 09/28/22 Roc Steele MD [address] [place] [address] PCP - ACO Reach 08/30/23 Digital Marketing Program Manager Relationship Specialty Start Date End Date Roc Steele MD [address] [place] [address] PCP - General Internal Medicine 09/28/22 Roc Steele MD [address] [place] [address] PCP - ACO Reach 08/30/23 Digital Marketing Program Manager Relationship Specialty Start Date End Date Roc Steele MD [address] [place] [address] PCP - General Internal Medicine 09/28/22 Roc Steele MD [address] [place] [address] PCP - ACO Reach 08/30/23 Digital Marketing Program Manager Relationship Specialty Start Date End Date Roc Steele MD [address] [place] [address] PCP - General Internal Medicine 09/28/22 Roc Steele MD [address] [place] [address] PCP - ACO Reach 08/30/23 Waqas Dugan DO [address] [place] [address] Referring Physician Neurology 03/07/24 Digital Marketing Program Manager Relationship Specialty Start Date End Date Roc Steele MD [address] [place] [address] PCP - General Internal Medicine 09/28/22 Roc Steele MD [address] [place] [address] PCP - ACO Reach 08/30/23 Waqas Dugan DO [address] [place] [address] Referring Physician Neurology 03/07/24 Digital Marketing Program Manager Relationship Specialty Start Date End Date Roc Steele MD [address] [place] [address] PCP - General Internal Medicine 09/28/22 Roc Steele MD [address] [place] [address] PCP - ACO Reach 08/30/23 Waqas Dugan DO [address] [place] [address] Referring Physician Neurology 03/07/24 Digital Marketing Program Manager Relationship Specialty Start Date End Date Roc Steele MD [address] [place] [address] PCP - General Internal Medicine 09/28/22 Roc Steele MD [address] [place] [address] PCP - ACO Reach 08/30/23 Waqas Dugan DO [address] [place] [address], [place] [address] Referring Physician Neurology 03/07/24 Digital Marketing Program Manager Relationship Specialty Start Date End Date Roc Steele MD [address] [place] [address] PCP - General Internal Medicine 09/28/22 Roc Steele MD [address] [place] [address] PCP - ACO Reach 08/30/23 Waqas Dugan DO [address] [place] [address] Referring Physician Neurology 03/07/24 Digital Marketing Program Manager Relationship Specialty Start Date End Date Roc Steele MD [address] [place] [address] PCP - General Internal Medicine 09/28/22 Roc Steele MD [address] [place] [address] PCP - ACO Reach 08/30/23 Digital Marketing Program Manager Relationship Specialty Start Date End Date Roc Steele MD [address] [place] [address] PCP - General Internal Medicine 09/28/22 Roc Steele MD [address] [place] [address] PCP - ACO Reach 08/30/23 Waqas Dugan DO [address] [place] [address] Referring Physician Neurology 03/07/24 Digital Marketing Program Manager Relationship Specialty Start Date End Date Roc Steele MD [address] [place] [address] PCP - General Internal Medicine 09/28/22 Roc Steele MD [address] [place] [address] PCP - ACO Reach 08/30/23 Waqas Dugan DO [address] [place] [address] Referring Physician Neurology 03/07/24 Digital Marketing Program Manager Relationship Specialty Start Date End Date Roc Steele MD [address] [place] [address] PCP - General Internal Medicine 09/28/22 Roc Steele MD [address] [place] [address] PCP - ACO Reach 08/30/23 Waqas Dugan DO [address] [place] [address] Referring Physician Neurology 03/07/24 Digital Marketing Program Manager Relationship Specialty Start Date End Date Roc Steele MD [address] [place] [address] PCP - General Internal Medicine 09/28/22 Roc Steele MD [address] [place] [address] PCP - ACO Reach 08/30/23 Waqas Dugan DO [address] [place] [address] Referring Physician Neurology 03/07/24 Digital Marketing Program Manager Relationship Specialty Start Date End Date Roc Steele MD [address] [place] [address] PCP - General Internal Medicine 09/28/22 Roc Steele MD [address] [place] [address] PCP - ACO Reach 08/30/23 Waqas Dugan DO [address] [place] [address] Referring Physician Neurology 03/07/24 Digital Marketing Program Manager Relationship Specialty Start Date End Date Roc Steele MD [address] [place] [address] PCP - General Internal Medicine 09/28/22 Roc Steele MD [address] [place] [address] PCP - ACO Reach 08/30/23 Waqas Dugan DO [address] [place] [address] Referring Physician Neurology 03/07/24 Digital Marketing Program Manager Relationship Specialty Start Date End Date Roc Steele MD [address] [place] [address] PCP - General Internal Medicine 09/28/22 Roc Steele MD [address] [place] [address] PCP - ACO Reach 08/30/23 Waqas Dugan DO [address] [place] [address] Referring Physician Neurology 03/07/24 Digital Marketing Program Manager Relationship Specialty Start Date End Date Roc Steele MD [address] [place] [address] PCP - General Internal Medicine 09/28/22 Roc Steele MD [address] [place] [address] PCP - ACO Reach 08/30/23 Waqas Dugan DO [address] [place] [address] Referring Physician Neurology 03/07/24 Raya Holt, RN Clinical [facility] 06/07/24 Digital Marketing Program Manager Relationship Specialty Start Date End Date Roc Steele MD [address] [place] [address] PCP - General Internal Medicine 09/28/22 Roc Steele MD [address] [place] [address] PCP - ACO Reach 08/30/23 Waqas Dugan DO [address] [place] [address] Referring Physician Neurology 03/07/24 Raya Holt, CARMEN [facility] 06/07/24 Digital Marketing Program Manager Relationship Specialty Start Date End Date Roc Steele MD [address] [place] [address] PCP - General Internal Medicine 09/28/22 Roc Steele MD [address] [place] [address] PCP - ACO Reach 08/30/23 Waqas Dugan DO [address] [place] [address] Referring Physician Neurology 03/07/24 Raya Holt, CARMEN [facility] 06/07/24 Digital Marketing Program Manager Relationship Specialty Start Date End Date Roc Steele MD [address] [place] [address] PCP - General Internal Medicine 09/28/22 Roc Steele MD [address] [place] [address] PCP - ACO Reach 08/30/23 Waqas Dugan DO [address] [place] [address] Referring Physician Neurology 03/07/24 Raya Holt RN [facility] 06/07/24 Digital Marketing Program Manager Relationship Specialty Start Date End Date Roc Steele MD [address] [place] [address] PCP - General Internal Medicine 09/28/22 Roc Steele MD [address] [place] [address] PCP - ACO Reach 08/30/23 Waqas Dugan DO [address] [place] [address] Referring Physician Neurology 03/07/24 Raya Holt, CARMEN [facility] 06/07/24 Digital Marketing Program Manager Relationship Specialty Start Date End Date Roc Steele MD [address] [place] [address] PCP - General 10/04/22 Digital Marketing Program Manager Relationship Specialty Start Date End Date Roc Steele MD [address] [place] [address] PCP - General Internal Medicine 09/28/22 Roc Steele MD [address] [place] [address] PCP - ACO Reach 08/30/23 Waqas Dugan DO [address] [place] [address] Referring Physician Neurology 03/07/24 Gladis Laird LPN 07/19/24 Digital Marketing Program Manager Relationship Specialty Start Date End Date Roc Steele MD [address] [place] [address] PCP - General Internal Medicine 09/28/22 Roc Steele MD [address] [place] [address] PCP - ACO Reach 08/30/23 Waqas Dugan DO [address] [place] [address] Referring Physician Neurology 03/07/24 Gladis Laird LPN 07/19/24 Digital Marketing Program Manager Relationship Specialty Start Date End Date Roc Steele MD [address] [place] [address] PCP - General Internal Medicine 09/28/22 Roc Steele MD [address] [place] [address] PCP - ACO Reach 08/30/23 Waqas Dugan DO [address] [place] [address] Referring Physician Neurology 03/07/24 Gladis Laird LPN 07/19/24 Digital Marketing Program Manager Relationship Specialty Start Date End Date Roc Steele MD [address] [place] [address] PCP - General Internal Medicine 09/28/22 Roc Steele MD [address] [facility] [address] [place] [address] PCP - ACO Reach 08/30/23 Waqas Dugan DO [address] [place] [address] Referring Physician Neurology 03/07/24 Gladis Laird LPN 07/19/24 Digital Marketing Program Manager Relationship Specialty Start Date End Date Roc Steele MD [address] [facility] [address] [place] [address] PCP - General Internal Medicine 09/28/22 Roc Steele MD [address] [place] [address] PCP - ACO Reach 08/30/23 Waqas Dugan DO [address] [place] [address] Referring Physician Neurology 03/07/24 Gladis Laird LPN 07/19/24 Digital Marketing Program Manager Relationship Specialty Start Date End Date Roc Steele MD [address] [place] [address] PCP - General 10/04/22 Digital Marketing Program Manager Relationship Specialty Start Date End Date Roc Steele MD [address] [place] [address] PCP - General 10/04/22 Digital Marketing Program Manager Relationship Specialty Start Date End Date Roc Steele MD [address] [place] [address] PCP - General 10/04/22 Digital Marketing Program Manager Relationship Specialty Start Date End Date Roc Steele MD [address] [place] [address] PCP - General Internal Medicine 09/28/22 Roc Steele MD [address] [place] [address] PCP - ACO Reach 08/30/23 Waqas Dugan DO [address] [place] [address] Referring Physician Neurology 03/07/24 Gladis Laird LPN 07/19/24 Digital Marketing Program Manager Relationship Specialty Start Date End Date Roc Steele MD [address] [place] [address] PCP - General Internal Medicine 09/28/22 Roc Steele MD [address] [place] [address] PCP - ACO Reach 08/30/23 Waqas Dugan DO [address] [place] [address] Referring Physician Neurology 03/07/24 Gladis Laird LPN 07/19/24 Digital Marketing Program Manager Relationship Specialty Start Date End Date Roc Steele MD [address] [place] [address] PCP - General Internal Medicine 09/28/22 Roc Steele MD [address] [place] [address] PCP - ACO Reach 08/30/23 Waqas Dugan DO [address] [place] [address] Referring Physician Neurology 03/07/24 Gladis Laird LPN [address] [place] [address] 07/19/24 Digital Marketing Program Manager Relationship Specialty Start Date End Date Roc Steele MD [address] [place] [address] PCP - General Internal Medicine 09/28/22 Roc Steele MD [address] [place] [address] PCP - ACO Reach 08/30/23 Waqas Dugan DO [address] [place] [address] Referring Physician Neurology 03/07/24 Gladis Laird LPN [address] [place] [address] 07/19/24 Digital Marketing Program Manager Relationship Specialty Start Date End Date Roc Steele MD [address] [place] [address] PCP - General Internal Medicine 09/28/22 Roc Steele MD [address] [place] [address] PCP - ACO Reach 08/30/23 Waqas Dugan DO [address] [place] [address], [place] [address] Referring Physician Neurology 03/07/24 Gladis Laird LPN [address] [place] [address] 07/19/24 Digital Marketing Program Manager Relationship Specialty Start Date End Date Roc Steele MD [address] [place] [address] PCP - General 10/04/22 Digital Marketing Program Manager Relationship Specialty Start Date End Date Roc Steele MD [address] [place] [address] PCP - General Internal Medicine 09/28/22 Roc Steele MD [address] [place] [address] PCP - ACO Reach 08/30/23 Waqas Dugan DO [address] [place] [address] Referring Physician Neurology 03/07/24 Gladis Laird LPN [address] [place] [address] 07/19/24 FOR RECORDS PERTAINING TO PATIENTS WHO [...] BE BASED ON THE PRIMARY CLINICAL RECORDS. [employer] [facility]. provides no warranty or guarantee of the accuracy or completeness of information in this document.
--- OUTSIDE RECORDS SUMMARY | 2025-02-17 10:36 | XMS_ITS | Encounter Summary ---
Author Organization [facility] Address [address] [place] [address] Care Team Providers Care Computer Systems Software Architect Name Role Phone Roc Steele MD Primary Care Provider [phone] Roc Steele MD Unavailable [phone] Luis Felipe Dugan DO Unavailable [phone] Raya Holt RN Unavailable [phone] Gladis Laird LPN Unavailable Encounter Details Date Type Department Care Team (Late st Contact Info) Description 05/30/2024 Abstract [facility] [place] [facility] [address] [facility] 110 [place] [address] Roc Steele MD [address] [facility] 110 [place] [address] Social History Tobacco Use Types Packs/Day Years [...] Recorded Patient Health Questionnaire-2 Score 0 07/06/2023 [facility] - Occupational Stress Questionnaire Answer Date [...] of this encounter Care Teams Computer Systems Software Architect Relationship Specialty Start Date End Date Roc Steele MD [address] [facility] 110 [place] [address] PCP - General Internal Medicine 09/28/22 Roc Steele MD [address] [place] [address] PCP - ACO Reach 08/30/23 Luis Felipe Dugan DO [address] [place] [address] Referring Physician Neurology 03/07/24 Raya Holt, CARMEN [address] [place] [address] Clinical Advocate Family Medicine 06/07/24 07/19/24 Gladis Laird LPN 112 [facility] 110 [place], [place] [address] 07/19/24 documented as of this encounter
--- OUTSIDE RECORDS SUMMARY | 2025-02-17 10:36 | XMS_ITS | Encounter Summary ---
Author Organization [facility] Address [address] [place] [address] Care Team Providers Care Pickle Cutter Name Role Phone Roc Steele MD Unavailable [phone] Roc Steele MD Primary Care Provider [phone] Roc Steele MD Unavailable [phone] Luis Felipe Dugan DO Unavailable [phone] Raya Holt RN Unavailable [phone] Gladis Laird LPN Unavailable Encounter Details Date Type Department Care Team (Late st Contact Info) Description 12/07/2022 Abstract [facility] [place] [facility] [address] [facility] 110 [place] [address] Roc Steele MD [address] [facility] 110 [place], [place] [address] Social History Tobacco Use Types Packs/Day Years [...] 11/25/2022 [facility] - Occupational Stress Questionnaire Answer Date [...] on filedocumented in this encounter Care Teams Pickle Cutter Relationship Specialty Start Date End Date Roc Steele MD [address] [facility] 110 [place] [address] PCP - ACO Reach 09/22/22 06/29/23 Roc Steele MD [address] [place], [place] [address] PCP - General Internal Medicine 09/28/22 Roc Steele MD [address] [facility] 110 [place], [place] [address] PCP - ACO Reach 08/30/23 Luis Felipe Dugan DO [address] [place] [address] Referring Physician Neurology 03/07/24 Raya Holt, RN [address] [place] [address] Clinical Advocate Family Medicine 06/07/24 07/19/24 Gladis Laird LPN 112 [facility] 110 [place] [address] 07/19/24 documented as of this encounter
--- OUTSIDE RECORDS SUMMARY | 2025-02-17 10:36 | XMS_ITS | Encounter Summary ---
Author Organization [facility] Address [address] [place] [address] Care Team Providers Care Life Insurance Actuary Name Role Phone Roc Steele MD Unavailable [phone] Roc Steele MD Primary Care Provider [phone] Roc Steele MD Unavailable [phone] Luis Felipe Dugan DO Unavailable [phone] Raya Holt RN Unavailable [phone] Gladis Laird LPN Unavailable Encounter Details Date Type Department Care Team (Late st Contact Info) Description 12/25/2022 Abstract [facility] [place] [facility] 112 [facility] 170 [place] [address] Josue Mayer, PT 112 [facility] 170 [place] [address] Social History Tobacco Use Types Packs/Day Years [...] at all 11/25/2022 [facility] - [facility]ational Stress Questionnaire Answer [...] on filedocumented in this encounter Care Teams Life Insurance Actuary Relationship Specialty Start Date End Date Roc Steele MD [address] [facility] 110 [place] [address] PCP - ACO Reach 09/22/22 06/29/23 Roc Steele MD [address] [facility] 110 [place] [address] PCP - General Internal Medicine 09/28/22 Roc Steele MD [address] [facility] 110 [place] [address] PCP - ACO Reach 08/30/23 Luis Felipe Dugan DO [address] [place] [address] Referring Physician Neurology 03/07/24 Raya Holt, RN [address] [place] [address] Clinical Advocate Family Medicine 06/07/24 07/19/24 Gladis Laird LPN 112 [facility] 110 [place] [address] 07/19/24 documented as of this encounter
--- OUTSIDE RECORDS SUMMARY | 2025-02-17 10:37 | XMS_ITS | Encounter Summary ---
Author Organization [facility] Address [address] [place] [address] Care Team Providers Care Fretted Instrument Repairer Name Role Phone Roc Steele MD Primary Care Provider [phone] Roc Steele MD Unavailable [phone] RitchieBulljulianojean-claude JORDAN Unavailable [phone] Gladis Laird LPN Unavailable Encounter Details Date Type Department Care Team (Late st Contact Info) Description 08/19/2024 Abstract [facility] [place] [facility] [address] [facility] 110 [place] [address] Roc Stelee MD 112 [facility] 110 [place] [address] Social History Tobacco Use Types Packs/Day Years [...] Patient Health Questionnaire-2 Score 0 08/19/2024 [facility] Occupat ional Health - [...] documented as of this encounter Care Teams Fretted Instrument Repairer Relationship Specialty Start Date End Date Roc Steele MD [address] [facility] [address] [place] [address] PCP - General Internal Medicine 09/28/22 Roc Steele MD [address] [facility] [address] [place] [address] PCP - ACO Reach 08/30/23 Luis Felipe Dugan DO [address] [place] [address] Referring Physician Neurology 03/07/24 Gladis Laird LPN [address] [facility] 110 [place] [address] 07/19/24 documented as of this encounter
--- OUTSIDE RECORDS SUMMARY | 2025-02-17 10:37 | XMS_ITS | Encounter Summary ---
Author Organization [facility] Address [address] [place] [address] Care Team Providers Care Supervisor Cigar Making Machine Name Role Phone Roc Steele MD Primary Care Provider [phone] Roc Steele MD Unavailable [phone] RitchieBulljulianojean-claude JORDAN Unavailable [phone] Gladis Laird LPN Unavailable Encounter Details Date Type Department Care Team (Late st Contact Info) Description 08/20/2024 Abstract [facility] [place] [facility] [address] [facility] 110 [place] [address] Roc Steele MD 112 [facility] 110 [place] [address] Social History Tobacco Use Types Packs/Day Years [...] Recorded Patient Health Questionnaire-2 Score 0 08/19/2024 [facility] Occupat ional Health [...] as of this encounter Care Teams Supervisor Cigar Making Machine Relationship Specialty Start Date End Date Roc Steele MD [address] [facility] 110 [place] [address] PCP - General Internal Medicine 09/28/22 Roc Steele MD [address] [facility] 110 [place] [address] PCP - ACO Reach 08/30/23 Luis Felipe Dugan DO [address] [place] [address] Referring Physician Neurology 03/07/24 Gladis Laird LPN 112 [facility] 110 [place] [address] 07/19/24 documented as of this encounter
--- OUTSIDE RECORDS SUMMARY | 2025-02-17 10:37 | XMS_ITS | Encounter Summary ---
Author Organization [facility] Address [address] [place] [address] Care Team Providers Care Front Office Attendant Name Role Phone Roc Steele MD Primary Care Provider [phone] Roc Steele MD Unavailable [phone] RitchieBulljulianojean-claude JORDAN Unavailable [phone] Gladis Laird LPN Unavailable Encounter Details Date Type Department Care Team (Late st Contact Info) Description 08/20/2024 Abstract [facility] [place] [facility] [address] [facility] 110 [place] [address] Roc Steele MD 112 [facility] 110 [place] [address] Social History Tobacco Use Types Packs/Day Years [...] Recorded Patient Health Questionnaire-2 Score 0 08/19/2024 [facility] of Occupat [...] documented as of this encounter Care Teams Front Office Attendant Relationship Specialty Start Date End Date Roc Steele MD [address] [facility] 110 [place] [address] PCP - General Internal Medicine 09/28/22 Roc Steele MD [address] [facility] 110 [place] [address] PCP - ACO Reach 08/30/23 Luis Felipe Dugan DO [address] [place] [address] Referring Physician Neurology 03/07/24 Gladis Laird LPN 112 [facility] 110 [place] [address] 07/19/24 documented as of this encounter
--- OUTSIDE RECORDS SUMMARY | 2025-02-17 10:37 | XMS_ITS | Encounter Summary ---
Author Organization [facility] Address [address] [place] [address] Phone Care Team Providers Care Meat Team Member Name Role Phone Roc Steele MD Primary Care Provider [phone] Encounter Details Date Type Department Care Team (Late st Contact Info) Description 07/03/[address] [facility] [address] [place] [address] Scanning, Generic Provider Social History Tobacco Use [...] Description 04/28/2025 1:00 PM EST Ancillary Procedure [address] [place] [address] 05/16/2025 2:00 PM EST Office Visit [address] 250 [place] [address] Amber Hawley MD [address] [facility] 130 [place] [address] documented as of this encounter Visit Diagnoses Not on filedocumented in this encounter Care Teams Meat Team Member Relationship Specialty Start Date End Date Roc Steele MD 112 [facility] 110 [place] [address] PCP - General 10/04/22 documented as of this encounter
--- OUTSIDE RECORDS SUMMARY | 2025-02-17 10:37 | XMS_ITS | Encounter Summary ---
Author Organization [facility] Address [address] [place] [address] Care Team Providers Care Oil Winterizer Name Role Phone Roc Steele MD Primary Care Provider [phone] Roc Steele MD Unavailable [phone] RitchieBulljulianojean-claude JORDAN Unavailable [phone] Gladis Laird LPN Unavailable Encounter Details Date Type Department Care Team (Late st Contact Info) Description 08/07/2024 Abstract [facility] [place] [facility] [address] [facility] 110 [place] [address] Roc Steele MD 112 [facility] 110 [place] [address] Social History Tobacco Use Types Packs/Day Years [...] Recorded Patient Health Questionnaire-2 Score 0 08/01/2024 [facility] of Occupat ional Health [...] documented as of this encounter Care Teams Oil Winterizer Relationship Specialty Start Date End Date Roc Steele MD [address] [facility] 110 [place] [address] PCP - General Internal Medicine 09/28/22 Roc Steele MD [address] [facility] 110 [place] [address] PCP - ACO Reach 08/30/23 Luis Felipe Dugan DO [address] [place] [address] Referring Physician Neurology 03/07/24 Gladis Laird LPN 112 [facility] 110 [place] [address] 07/19/24 documented as of this encounter
--- OUTSIDE RECORDS SUMMARY | 2025-02-17 10:37 | XMS_ITS | Clinical Summary ---
Author Organization [facility] Address [address] [place] [address] Care Team Providers Care Government Affairs Director Name Role Phone Roc Steele MD Primary Care Provider [phone] Roc Steele MD Unavailable [phone] Luis Felipe Dugan DO Unavailable Gladis Laird [...] 11/30/19 24 Active furosemide (Lasix) 20 MG tabletIndications: Cardiomegaly,Chron [...] 25 026 Active fexofenadine (Radha) 180 MG tabletIndications: Seasonal allergic rhinitis, unspecified trigger Take 1 tablet (180 mg) by mouth Daily as needed (alleriges) 90 tablet 3 08/02/19 25 026 Active pantoprazole (ProtoNix) 40 MG EC tabletIndications: Gastroesophageal reflux disease with esophagitis without hemorrhage TAKE 1 TABLET BY MOUTH ONCE DAILY 90 tablet 3 09/12/19 25 Active zolpidem (Ambien) 10 MG tabletIndications: Primary insomnia TAKE 1 TABLET BY MOUTH AT BEDTIME 90 tablet 09/12/19 25 Active gabapentin (Neurontin) 300 MG capsuleIndications :Acute low back pain without sciatica, unspecified back pain laterality Take 1 capsule (300 mg) by mouth in the morning and 1 capsule (300 mg) before bedtime. 200 capsule 3 10/03/19 25 Active tiZANidine (Zanaflex) 4 MG tabletIndications: Primary insomnia TAKE 1 TABLET BY MOUTH EVERY 8 HOURS NEEDED 270 tablet 10/08/19 25 Active meloxicam (Mobic) 15 MG tabletIndications: Primary osteoarthritis involving multiple joints TAKE 1 TABLET BY MOUTH ONCE DAILY 90 tablet 3 10/11/19 25 Active metoprolol succinate XL (Toprol-XL) 50 MG 24 hr tabletIndications: Benign essential hypertension TAKE 1 TABLET BY MOUTH IN THE MORNING AND 1 TABLET BY MOUTH BEFORE BEDTIME 180 tablet 3 10/11/19 25 Active nortriptyline (Pamelor) 10 MG capsuleIndications :Primary insomnia,Anxiety TAKE 3 CAPSULES BY MOUTH AT BEDTIME ONCE DAILY 270 capsule 3 10/11/19 25 Active simvastatin (Zocor) 10 MG tabletIndications: Hyperlipidemia, unspecified hyperlipidemia type TAKE 1 TABLET BY MOUTH ONCE DAILY 90 tablet 3 10/11/19 25 Active Prolia 60 MG/ML solution prefilled syringeIndications :Age-related osteoporosis without current pathological fracture INJECT 60MG SUBCUTANEOUSLY ONCE DIRECTED 1 mL 01/15/20 25 Active Active Problems Problem Noted Date Diagnosed [...] Encounters Date Type Department Care Team Description 02/13/2025 Patient Outreach [facility] [address] [place] [address] Doris Longo, LARRY 02/03/2025 Patient Outreach [facility] [address] [place] [address] Doris Longo, LARRY 01/27/2025 Patient Outreach [facility] [address] [place] [address] Doris Longo, ULTIMATE HOOPS TRAINER 01/23/2025 Clinisync Result Encounter [facility] External Department Unsolicited Provider, Generic External Data 01/15/2025 [facility] [address] [place] [address] Doris Longo, ULTIMATE HOOPS TRAINER 01/14/2025 Refill [facility] [place] [facility] [address] [facility] 110 [place] [address] Aarti Castillo, DEISY Age-related osteoporosis without current pathological fracture 01/08/2025 Patient Outreach [facility] [address] [place] [address] Doris Longo, ULTIMATE HOOPS TRAINER 01/01/2025 [facility] [address] [place] [address] Doris Longo, ULTIMATE HOOPS TRAINER 12/31/2024 Abstract [facility] [place] [facility] [address] [facility] [address] [place] [address] Roc Steele MD 12/03/2024 Results Follow-Up [facility] [place] [facility] [address] [facility] 110 [place] [address] MR LUMBAR SPINE WO CON 11/18/2024 Abstract [facility] [place] [facility] [address] [facility] 110 [place] [address] Roc Steele MD from Last 3 Months [...] Patient Health Questionnaire-2 Score 0 10/16/2024 [facility] Occupat ional [facility] - Occupational Stress Questionnaire Answer Date [...] EDT) Anatomical Region Laterality Modality Other 01/23/2025 1:4 6 PM EDT Narrative 01/23/2025 1:49 [place] [address] XRay Report Signed Patient: USHA WALKER MR#: [id number] : 1945 Acct:[id number] Age/Sex: 79 / F ADM Date: 01/23/25 Loc: RAD Attending Dr: Kelly Zepeda D.P.M. Ordering Physician: Kelyl Zepeda D.P.M. Date of Service: 01/23/25 Procedure(s): XR ankle LT min 3V Accession Number(s): [id number] cc: ROC STEELE ; Kelly Zepeda D.P.M. The [place] [id number] Patient Name: USHA WALKER MRN: [id number] date: 1945 Sex: F Assigned Patient Location: [facility] Current Patient Location: RAD Accession/Order Number: [id number] Exam Date: 01/23/2025 13:15 Report Date: 01/23/2025 [...] Jr., D.O. 01/23/2025 1:46 PM Dictation Location: [place] [address] Electronically authenticated by: [id number] Y Date: 01/23/2025 13:46 Dictated By: Jayce De La Garza M.D. Signed By: 01/23/25 1349 DD/ 134 TD/TT: Soil Fertility Specialist: Procedure Note Radiology, Radiologist, MD - 01/23/2025 The [place] [id number] XRay Report Signed Patient: USHA WALKER KMR#: [id number] : 1945cct:[id number] Age/Sex: 79 / FADM Date: 01/23/25 Loc: RAD Attending Dr: Kelly Zepeda D.P.M. Ordering Physician: Kelly Zepeda D.P.M. Date of Service: 01/23/25 Procedure(s): XR ankle LT min 3V Accession Number(s): [id number] cc: ROC STEELE ; Kelly Zepeda D.P.M. [place] [id number] Patient Name: USHA WALKER MRN: [id number] date: 1945 Sex: F Assigned Patient Location: [facility] Current Patient Location: [facility] Accession/Order Number: [id number] Exam Date: 01/23/2025 13:15 Report Date: 01/23/2025 [...] Jr., D.O. 01/23/2025 1:46 PM Dictation Location: [place] [address] Electronically authenticated by: [id number] Y Date: 3:46 Dictated By: Jayce De La Garza M.D. Signed By:01/23/25 1349 DD/ 1346 TD/TT: Soil Fertility Specialist: us Generic External Data Provider [facility] Final Result * Colonoscopy (10/31/2012 12:00 PM EDT) Anatomical Region Laterality Modality Endoscopy 10/31/2012 12:0 0 PM EDT Narrative 10/31/2012 12:00 PM EDT PERFORMED AT [facility] LOCATION:[id number] DIVERTICULOSIS Procedure Note CONVERSION, GENERIC - 09/15/2022 PERFORMED AT [facility] LOCATION:[id number] DIVERTICULOSIS us Roc Steele MD ENDOSCOPY PROCEDURE ORDERABLES Final Result from Last 3 Months or Most Recently Relevant to Health Maintenance Insurance [facility] Care Teams Government Affairs Director Relationship Specialty Start Date End Date Roc Steele MD [address] [facility] [address] [place] [address] PCP - General Internal Medicine 09/28/22 Roc Steele MD [address] [facility] [address] [place] [address] PCP - ACO Reach 08/30/23 Luis Felipe Dugan DO [address] [place] [address] Referring Physician Neurology 03/07/24 Gladis Laird LPN [address] [facility] 110 [place] [address] 07/19/24
--- OUTSIDE RECORDS SUMMARY | 2025-02-17 10:38 | XMS_ITS | Encounter Summary ---
Author Organization [facility] Address [address] [place] [address] Care Team Providers Care Warehouse Order Puller Name Role Phone Roc Steele MD Primary Care Provider [phone] Roc Steele MD Unavailable [phone] RitchieBulljulianojean-claude JORDAN Unavailable [phone] Gladis Laird LPN Unavailable Encounter Details Date Type Department Care Team (Late st Contact Info) Description 10/01/2024 Abstract [facility] [place] [facility] [address] [facility] 110 [place] [address] Roc Steele MD 112 [facility] 110 [place] [address] Social History Tobacco Use Types Packs/Day Years [...] Recorded Patient Health Questionnaire-2 Score 0 08/19/2024 [facility] ional [...] as of this encounter Care Teams Warehouse Order Puller Relationship Specialty Start Date End Date Roc Steele MD [address] [facility] 110 [place] [address] PCP - General Internal Medicine 09/28/22 Roc Steele MD [address] [facility] 110 [place] [address] PCP - ACO Reach 08/30/23 Luis Felipe Dugan DO [address] [place] [address] Referring Physician Neurology 03/07/24 Gladis Laird LPN 112 [facility] 110 [place] [address] 07/19/24 documented as of this encounter
--- OUTSIDE RECORDS SUMMARY | 2025-02-17 10:38 | XMS_ITS | Clinical Summary ---
Author Organization [facility] Address [address] [place] [address] Phone Care Team Providers Care Loader Demolder Name Role Phone Roc Steele MD Primary Care Provider [phone] Allergies Active Allergy Reactions Criticality Noted Date Comments Moxifloxacin Angioedema 07/15/2024 Ciprofloxacin Unknown 07/15/2024 Sulfa (Sulfonamide Antibiotics) Unknown 06/29 Medications HYDROcodone-acetami nophen ([place]) 5-325 mg tablet Take 1 tablet by [...] as needed at bedtime for anxiety. Active uzdrvoatfxle-Km-lnw n-minerals tablet Take 1 tablet by mouth [...] Type Department Care Team Description 11/20/2024 Travel from Last 3 Months Family History [...] Description 04/28/2025 1:00 PM EST Ancillary Procedure [address] [address] 05/16/2025 2:00 PM EST Office Visit [address] [phone] Rc Kern MD [address] [facility] 130 [place], [place] [id number] Health Maintenance Due Date Last Done Comments [...] 2024 , 03/01/2023, 03/23/2022, Additional history exists COVID-19 Vaccine ( season) 2024 06/09/2023, 03/31/2022 Echocardiogram 09/18/2025 09/18/2024 Bone Density Scan 07/26/2026 [...] Sigmoidoscopy Discontinued Medical Devices Implanted Type Area Publishing Systems Analyst Device Identifier Shelf Expiration Date Model / Serial / Lot Screw, Low Profile Hex, 6.5 X 15 Mm Case [id number] Implanted:Qty: 1 on 01/29/2020 by Micah Bird MD Implant Right: Hip [employer] 06/30/2023 [id number] / / 5MM Description:Converted from [facility]. Please see archived information for full log information. Screw, Low Profile Hex, 6.5 X 25 Mm Case [id number] Implanted:Qty: 1 on 01/29/2020 by Micah Bird MD Implant Right: Hip [employer] 06/01/2024 [id number] / / 2RGE Description:Converted from [facility]. Please see archived information for full log information. Head, Femur V40 36mm +2.5mm Biolox Delta Case [id number] Implanted:Qty: 1 on 01/29/2020 by Micah Bird MD Joint Right: Hip [employer] 11/29/2024 [id number] / / [id number] Description:Converted from [facility]. Please see archived information for full log information. Stem, Femur 132d Sz 5 Accolade Ii Case [id number] Implanted:Qty: 1 on 01/29/2020 by Micah Bird MD Joint Right: Hip [employer] 09/29/2024 [id number] / / [id number] Description:Converted from [facility]. Please see archived information for full log information. Shell, Trident Ii, Clusterhole, Shel[place] 52e Case [id number] Implanted:Qty: 1 on 01/29/2020 by Micah Bird MD Joint Right: Hip [employer] 06/30/2023 [id number] / / [id number] Description:Converted from [facility]. Please see archived information for full log information. Liners, Poly 36 X 10 D Trid Crossfire E Case [id number] Implanted:Qty: 1 on 01/29/2020 by Micah Bird [...] Narrative SYNGO - 09/18/2024 6:10 PM EDT [address], [address] [place] [address] TRANSTHORACIC ECHOCARDIOGRAM REPORT Patient Name: USHA Deal Physician: [id number] David Castle MD, [facility] Study Date: 09/18/2024 Ordering Provider: [id number] RC KERN MRN/PID: [id number] Fellow: Nurse: Date of /Age: 7 1945 Strategic Account Executive: Viry ely RDCS, RVT Gender Assigned at F Additional Staff: : Height: 162.56 cm Admit Date: Weight: 122.02 kg Admission Status: Outpatient BSA / BMI: 2.22 m2 / 46.17 Department Location: [facility] kg/[address] Blood Pressure: 124 /86 mmHg Study Type: TRANSTHORACIC ECHO (TTE) COMPLETE Diagnosis/ICD: Supraventricular tachycardia-I47.1; Abnormal electrocardiogram [ECG] [EKG]-R94.31; Palpitations-R00.2 Indication: Edema, HTN, Hyperlipidemia, Carotid Stenosis, CARO, CKD-Stage III, Morbid Obesity CPT Codes: Echo Complete w Full Doppler-[id number] Study Detail: The following Echo studies were [...] (0.6-0.9m/s) AORTA: Asc Ao Diam 2.66 cm [id number] David Castle MD, [facility] Electronically signed on 09/18/2024 at 6:10:05 PM Final Procedure Note David Castle MD - 09/18/[address], [address] [place] [address] TRANSTHORACIC ECHOCARDIOGRAM REPORT Patient Name: USHA Deal Physician: [id number] Castle MD,FAC Study Date: 09/18/2024 Ordering Provider: [id number] KERN MRN/PID: [id number] Fellow: Nurse: Date of /Age: 8 1945 Strategic Account Executive: David ely RDCS RVT Gender Assigned at F Additional Staff: : Height: 162.56 cm Admit Date: Weight: 122.02 kg Admission Status: Outpatient BSA / BMI: 2.22 m2 / 46.17 Department Location: [facility] kg/[address] Blood Pressure: 124 /86 mmHg Study Type: TRANSTHORACIC ECHO (TTE) COMPLETE Diagnosis/ICD: Supraventricular tachycardia-I47.1; Abnormalelectrocardiogram [ECG] [EKG]-R94.31; Palpitations-R00.2 Indication: Edema, HTN, Hyperlipidemia, Carotid Stenosis, CARO,CKD-Stage III, Morbid Obesity CPT Codes: Echo Complete w Full Doppler-[id number] Study Detail: The following Echo studies were [...] (0.6-0.9m/s) AORTA: Asc Ao Diam 2.66 cm [id number] David Castle MD, FACC Electronically signed on 09/18/2024 at 6:10:05 PM Final Rc Kern MD CV ECHO PROCEDURES Final Result SYNGO * (ABNORMAL) Basic Metabolic Panel (01/30/2020 5:25 AM EDT) Glucose 128(H) 74 - 99 mg/dL [facility] Sodium 137 136 - 145 mmol/L [facility] Potassium 4.2 3.5 - 5.3 mmol/L [facility] Chloride 101 98 - 107 mmol/L [facility] Bicarbonate 32 21 - 32 mmol/L [facility] Anion Gap 8(L) 10 - 20 mmol/L [facility] Urea Nitrogen 14 6 - 23 mg/dL [facility] Creatinine 1.00 0.50 - 1.05 mg/dL [facility] GLOMERULAR FILTRATION RATE-NON 54(A) >60 mL/min/1.7 3m2 [facility] GLOMERULAR FILTRATION RATE- 65 >60 mL/min/1.7 3m2 [facility] Comment: CALCULATIONS OF ESTIMATED GFR ARE PERFORMED USING THE MDRD STUDY EQUATION FOR THE IDMS-TRACEABLE CREATININE METHODS. CLIN CHEM 2007;53:766-72 Calcium 8.8 8.6 - 10.3 mg/dL [facility] 01/30/2020 5:25 AM EDT 01/30/2020 6:26 AM EDT us Micah Bird MD LAB BLOOD ORDERABLES Final Res ult [facility] from Last 3 Months or Most Recently Relevant to Health Maintenance Insurance GENERIC COMMERCIAL MEDICARE PART A AND B GENERIC COMMERCIAL MEDICARE PART A AND B Care Teams Loader Demolder Relationship Specialty Start Date End Date Roc Steele MD [address] [facility] 110 [place] [address] PCP - General 10/04/22
--- OUTSIDE RECORDS SUMMARY | 2025-02-17 10:38 | XMS_ITS | Encounter Summary ---
Author Organization [facility] Address [address] [place] [address] Care Team Providers Care Software Writer Name Role Phone Roc Steele MD Primary Care Provider [phone] Roc Steele MD Unavailable [phone] Luis Felipe Dugan DO Unavailable [phone] Raya Holt RN Unavailable [phone] Gladis Laird LPN Unavailable Encounter Details Date Type Department Care Team (Late st Contact Info) Description 10/16/2023 Abstract [facility] [place] [facility] [address] [facility] 110 [place] [address] Roc Steele MD [address] [facility] [address] [place] [address] Social History Tobacco Use Types Packs/Day Years [...] How often do you attend chur or roman catholic services? Never 11/25/2022 Do [...] Recorded Patient Health Questionnaire-2 Score 0 07/06/2023 [facility] - Occupational Stress Questionnaire [...] as of this encounter Care Teams Software Writer Relationship Specialty Start Date End Date Roc Steele MD [address] [facility] [address] [place] [address] PCP - General Internal Medicine 09/28/22 Roc Steele MD [address] [facility] [address] [place] [address] PCP - ACO Reach 08/30/23 Luis Felipe Dugan DO [address] [place] [address] Referring Physician Neurology 03/07/24 Raya Holt, RN [address] [place], [place] [address] [facility] 06/07/24 07/19/24 Gladis Laird LPN 112 [facility] 110 [place] [address] 07/19/24 documented as of this encounter
--- OUTSIDE RECORDS SUMMARY | 2025-02-17 10:38 | XMS_ITS | Encounter Summary ---
Author Organization [facility] Address [address] [place] [address] Care Team Providers Care Street Engineer Name Role Phone Roc Steele MD Primary Care Provider [phone] Roc Steele MD Unavailable [phone] RitchieBulljulianojean-claude JORDAN Unavailable [phone] Gladis Laird LPN Unavailable Encounter Details Date Type Department Care Team (Late st Contact Info) Description 09/18/2024 Abstract [facility] [place] [facility] [address] [facility] 110 [place] [address] Roc Steele MD 112 [facility] 110 [place] [address] Social History Tobacco Use Types Packs/Day Years [...] How often do you attend chur or cheondoism services? Never 11/25/2022 Do you [...] Recorded Patient Health Questionnaire-2 Score 0 08/19/2024 [facility] ional Health - Occupational [...] documented as of this encounter Care Teams Street Engineer Relationship Specialty Start Date End Date Roc Steele MD [address] [facility] 110 [place] [address] PCP - General Internal Medicine 09/28/22 Roc Steele MD [address] [facility] 110 [place] [address] PCP - ACO Reach 08/30/23 Luis Felipe Dugan DO [address] [place] [address] Referring Physician Neurology 03/07/24 Gladis Laird LPN 112 [facility] 110 [place] [address] 07/19/24 documented as of this encounter
--- OUTSIDE RECORDS SUMMARY | 2025-02-17 10:38 | XMS_ITS | Encounter Summary ---
Author Organization [facility] Address [address] [place] [address] Care Team Providers Care Nurse Quality Name Role Phone Roc Steele MD Primary Care Provider [phone] Roc Steele MD Unavailable [phone] Luis Felipe Dugan DO Unavailable [phone] Raya Holt RN Unavailable [phone] Gladis Laird LPN Unavailable Encounter Details Date Type Department Care Team (Late st Contact Info) Description 10/03/2023 Abstract [facility] [place] [facility] [address] [facility] 110 [place] [address] Roc Steele MD [address] [facility] 110 [place] [address] Social History Tobacco Use Types Packs/Day Years [...] any clubs o r organizations such as scientology groups, unions, fraternal or athletic groups, or [...] Recorded Patient Health Questionnaire-2 Score 0 07/06/2023 [facility] - Occupational Stress Questionnaire [...] documented as of this encounter Care Teams Nurse Quality Relationship Specialty Start Date End Date Roc Steele MD [address] [facility] [address] [place] [address] PCP - General Internal Medicine 09/28/22 Roc Steele MD [address] [facility] [address] [place] [address] PCP - ACO Reach 08/30/23 Luis Felipe Dugan DO [address] [place] [address] Referring Physician Neurology 03/07/24 Raya Holt, RN [address] [place], [place] [address] Clinical [facility] Family [facility] 06/07/24 07/19/24 Gladis Laird LPN 112 [facility] 110 [place] [address] 07/19/24 documented as of this encounter
--- OUTSIDE RECORDS SUMMARY | 2025-02-17 10:38 | XMS_ITS | Encounter Summary ---
Author Organization [facility] Address [address] [place] [address] Care Team Providers Care Spout Worker Name Role Phone Roc Steele MD Primary Care Provider [phone] Roc Steele MD Unavailable [phone] Luis Felipe Dugan DO Unavailable [phone] Raya Holt RN Unavailable [phone] Gladis Laird LPN Unavailable Encounter Details Date Type Department Care Team (Late st Contact Info) Description 07/13/2023 Abstract [facility] [place] [facility] [address] [facility] 110 [place] [address] Roc Steele MD [address] [facility] 110 [place] [address] Social History Tobacco Use Types Packs/Day Years [...] Recorded Patient Health Questionnaire-2 Score 0 07/06/2023 [facility] - Occupational Stress Questionnaire Answer [...] documented as of this encounter Care Teams Spout Worker Relationship Specialty Start Date End Date Roc Steele MD [address] [facility] [address] [place] [address] PCP - General Internal Medicine 09/28/22 Roc Steele MD [address] [facility] [address] [place] [address] PCP - ACO Reach 08/30/23 Luis Felipe Dugan DO [address] [place] [address] Referring Physician Neurology 03/07/24 Raya Holt, RN [address] [place], [place] [address] Clinical [facility] Family [facility] 06/07/24 07/19/24 Gladis Laird LPN 112 [facility] 110 [place] [address] 07/19/24 documented as of this encounter
== END 2025-02-17 10:31 | disposition home or self-care (01) ==
LOC: RAD 10:31
PROVIDERS: PCP Internal Medicine; Visit Provider Podiatrist Foot & Ankle Surgery
DX: M25.572 Pain in left ankle and joints of left foot (principal); S82.892D Other fracture of left lower leg, subsequent encounter for closed fracture with routine healing
CPT/HCPCS: 73610

== ENCOUNTER 2025-03-27 13:18 | Emergency (ER) | payer MEDICARE, OTHER, SELFPAY ==
--- NOTE | 2025-03-27 13:18 | CT_ITS ---
The [address] [address] Patient Name: LUMA RIBEIRO MRN: [id number] date: 1945 Sex: F Assigned Patient Location: ED.MAIN Current Patient Location: ED.MAIN Accession/Order Number: [id number] Exam Date: 03/27/2025 13:53 Report Date: 03/27/2025 14:36 At the request of: MARION HAGEN MD Procedure: CT head/brain wo con CT BRAIN WITHOUT CONTRAST: CLINICAL HISTORY: fall COMPARISON: CT brain 12/26/2024 TECHNIQUE: Contiguous axial unenhanced images were obtained through the brain. This CT exam was performed using one or more following dose reduction techniques: Automated exposure control, adjustment of the mA and/or kV according to patient size, or use of iterative reconstruction technique. FINDINGS: There is no evidence of midline shift, intra or extra-axial fluid collection, hemorrhage or CT evidence of stroke. Cortical atrophy with chronic microvascular ischemic changes similar to the prior study. Posterior fossa appears unremarkable. Visualized intraorbital contents demonstrate no acute findings. Mild ethmoid sinus disease. The surrounding soft tissues are normal. CT/CT head/brain wo con IMPRESSION: NO ACUTE INTRACRANIAL ABNORMALITY. Impression dictated by: Madelyn Ibarra Jr.OKirti 03/27/2025 2:36 PM Dictation Location: [place] [address] Electronically authenticated by: [id number] Y Date: 03/27/2025 14:36
--- NOTE | 2025-03-27 13:18 | ECG_ITS ---
The [facility] Test Date: 2025-03-27 Pat Name: LUMA RIBEIRO Department: Room: - Gender: Female Grease Cup Filler: : 1945 Requested By: [id number] Order Number: [id number] Reading MD: SAUNDRA MCCULLOUGH M.D. Measurements Intervals [place] Rate: 69 P: 37 CT: 142 QRS: -13 QRSD: 112 T: -8 QT: 432 QTc: 452 Interpretive Statements 1100 Sinus rhythm 2320 Nonspecific intraventricular conduction delay 5222 Moderate voltage criteria for LVH, may be normal variant 8304 Long QTc interval 9150 abnormal ECG Compared to ECG 01/01/2025 09:23:18 Left ventricular hypertrophy now present ST (T wave) deviation no longer present Possible ischemia no longer present Left-axis deviation no longer present Electronically Signed On 03-27-2025 15:28:29 EST by SAUNDRA MCCULLOUGH M.D.
--- NOTE | 2025-03-27 13:18 | CT_ITS ---
The [address] [address] Patient Name: LUMA RIBEIRO MRN: [id number] date: 1945 Sex: F Assigned Patient Location: ED.MAIN Current Patient Location: ED.MAIN Accession/Order Number: [id number] Exam Date: 03/27/2025 13:53 Report Date: 03/27/2025 14:39 At the request of: MARION HAGEN MD Procedure: CT cervical spine wo con CT CERVICAL SPINE WITHOUT CONTRAST WITH 3D RECONSTRUCTIONS: CLINICAL HISTORY: Fall COMPARISON: CT cervical 12/26/2024 TECHNIQUE: Spiral axial unenhanced images were obtained through the cervical spine. Sagittal, coronal and 3D volume-rendered reconstructions were also reviewed. This CT exam was performed using one or more following dose reduction techniques: Automated exposure control, adjustment of the mA and/or kV according to patient size, or use of iterative reconstruction technique. FINDINGS: No fracture. Vertebral body heights appear maintained. Mild spondylosis C5-C7. Diffuse facet joint degenerative changes. No prevertebral soft tissue swelling. Visualized lung apices demonstrate no acute findings. CT/CT cervical spine wo con IMPRESSION: NO CERVICAL SPINE FRACTURE Impression dictated by: Jayce De La Garza Jr., D.OKirti 03/27/2025 2:39 PM Dictation Location: [facility] Electronically authenticated by: [id number] Y Date: 03/27/2025 14:39
[2025-03-27 13:21] VITALS: BP 190/92; PULSE 72; TEMP 36.6; O2SAT 96; BMI 47.5
--- OUTSIDE RECORDS SUMMARY | 2025-03-27 13:37 | XMS_ITS | CCD ---
Author Organization [facility] Care Team Providers Care Online Trader Name Role Phone Tasia Bird Unavailable Unavailable [...] Primary Care Provider Roc Steele MD Unavailable [phone] Ritchie DO, Christopher Unavailable Mala Sapp Attending UnavailMala Kenney Admitting UnavailRoc Grant Primary Care Unavailable Raya Holt RN Unavailable Roc Steele MD Primary Care Provider Eitan JUAREZ, Gladis Unavailable Unavailable Ritchie DO, Christopher Unavailable [phone] Ritchie DO, Christopher Unavailable Laird VICE PRESIDENT OF INSTRUCTION, Gladis Unavailable KAMILA PRIDE Attending Unavailable ALEX ALFREDO Attending Unavailable KAMILA PRIDE Attending Unavailable BIGG, KAMILA M Attending Unavailable BIGG, KAMILA M Referring Unavailable BIGG, KAMILA M Attending Unavailable BIGG, KAMILA M Referring Unavailable BIGG, KAMILA M Attending Unavailable ALEX ALFREDO A Attending Unavailable ROC STEELE B Attending Unavailable BROWN, ALEX A Attending [...] BIGG, KAMILA M Attending Unavailable Gieditis , Andrius Banks Attending Unavailable Giedraitis , Andrius Vytautjeffery Attending Unavailable Giedraitis , Andrius Vytautas Attending Unavailable HAWLEY, AMBER Attending Unavailable HAWLEY, AMBER Referring Unavailable STEELE, ROC B Primary Care Unavailable HAWLEY, AMBER Attending Unavailable USAMA, ROC B Primary Care Unavailable HAWLEY, AMBER Referring Unavailable STEELE, ROC B Primary Care Unavailable HAWLEY, AMBER Referring Unavailable STEELE, ROC B Primary Care Unavailable HAWLEY, AMBER Referring Unavailable STEELE, ROC B Primary Care Unavailable HAWLEY, AMBER Referring Unavailable STEELE, ROC B Primary Care Unavailable Reji Dugan DOer Unavailable [phone] Waqas Dugan DO Unavailable Roc Steele MD Unavailable Yanet MORALES, Raya Unavailable [phone] Allergies Allergy ClassificationReported Allergen(s)Allergy TypeDate of OnsetReaction(s) FacilityMacrolides (antibiotic) (6 sources)Clarithromycin; Translations: [clarithromycin]Drug AllergyUnknownMP- [facility]: Quinolones (antibiotic) (18 sources)moxifloxacin; Translations: [moxifloxacin]Drug AllergyAnaphylaxis, Unknown-[facility] [place]: (20 sources)Ciprofloxacin; Translations: [ciprofloxacin]Drug Kjpaztp03-96-9676 [facility] ([facility])Clarithromycin; Translations: [clarithromycin]Drug Suhyktr82-27-[address] [facility] (4 sources)moxifloxacin; Translations: [Avelox]Drug Jtqnhwc15-03-0969Yxmisjhddtl [facility] (20 sources)moxifloxacin; Translations: [moxifloxacin]Drug Cwytcrs98-57-1972 Anaphylaxis, AngioedemaMP-[facility] Work Phone: (1 source)CiprofloxacinDrug Aspeovw01-47-4556Bnb [facility] (1 source)Sulfonamides (Antibiotic)Drug allergy (disorder)64-92-2661Zek [facility] (20 sources)SulfanilamideAllergy to gblpfdfar91-50-7542[facility] (8 sources)Sulfonamides (Antibiotic); Translations: [SULFA (SULFONAMIDE ANTIBIOTICS)]Propensity to adverse nphbbpudm05-76-0004AicfmbdCvnltmxfydHolzer Health System Work Phone: Medications Current Medications MedicationDrug Class(es)DatesSig (Normalized)Sig (Original)acetaminophen 325 mg / HYDROcodone bitartrate 5 mg oral tablet (20 sources)Opioid AgonistStart: 02-29-2024 End: 74-39-0125xkad 1 tablet by mouth every four hours for painHYDROcodone- acetaminophen (Gerry) 5-325 MG tablet Indications: Lumbosacral spondylosis without myelopathy Take 1 tablet by mouth every 4 (four) hours if needed for moderate pain or severe pain 180 tablet 10/18/2024 11/17/2024 [id number] 200 actuat albuterol 0.09 mg/actuat metered dose inhaler (14 sources)beta2-Adrenergic AgonistStart: 08-01-2024 End: 30-12-9648xehn 2 puff(s) by inhalation every four hours for coughalbuterol HFA (Ventolin HFA) 90 mcg/act inhaler Indications: SOB (shortness of breath) , Chronic cough Inhale 2 puffs every 4 (four) hours if needed for wheezing or shortness of breath (cough) 54 g 08/01/2025 ActiveALPRAZolam 0.25 mg oral tablet (20 sources)BenzodiazepineStart: 13-55-6037fexi 1 tablet by mouth twice daily as needed for anxietyALPRAZolam (Xanax) 0.25 MG tablet Indications: Anxiety Take 1 tablet (0.25 mg) by mouth 2 (two) times a day as needed for anxiety 60 tablet 11/30/2023 ActiveamLODIPine 5 mg oral tablet (20 sources)Dihydropyridine Calcium Channel BlockerStart: 10-17-2022 End: 08-65-4151ejal 1 tablet by mouth once dailyamLODIPine (Norvasc) 5 MG tablet Indications: Benign essential hypertension (CMS/HCC) Take 1 tablet(5 mg) by mouth Daily 90 tablet 3 01/29/2024 05/22/2024 Discontinued (Therapy completed) amoxicillin 500 mg oral capsule (5 sources)Penicillin-class AntibacterialStart: 05-18-2023 End: 60-83-7116emzy 4 tablets by mouth every houramoxicillin (Amoxil) 500 MG capsule Indications: Onychomycosis Take all 4 tablets 1 hour by mouth prior to procedure. 4 capsule 1 05/18/2023 Activebenzonatate 100 mg oral capsule (11 sources)Non-narcotic AntitussiveStart: 04-29-2024 End: 88-67-8407oocaanaxzfb (Tessalon) 100 MG capsule TAKE 1 CAPSULE BY MOUTH TWICE DAILY to THREE TIMES DAILY NEEDED FOR COUGH for 5 (FIVE) days 04/29/2024 07/11/2024 Discontinued (Therapy completed)calcium carbonate 1500 mg / cholecalciferol 800 unt chewable tablet (20 sources)Vitamin DCalcium Carb-Cholecalciferol 600-20 MG-MCG chewable tablet calcium carb 600 mg(1,500 mg)-vit D3 400unit-minerals chewable tablet Take by oral route. Activecalcium citrate 1500 mg / cholecalciferol 250 unt oral tablet (1 source)Vitamin Dtake 1 tablet by mouth once dailycalcium citrate-vitamin D3 (Citracal + D Maximum) 315 mg-6.25 mcg (250 unit) tablet Take 1 tablet (315 mg) by mouth once daily. Activecefdinir 300 mg oral capsule (5 sources)Cephalosporin AntibacterialStart: 06-11-2024 End: 69-27-2146inht 1 capsule by mouth in the morningcefdinir (Omnicef) 300 MG capsule Indications: Acute non-recurrent pansinusitis Take 1 capsule (300mg) by mouth in the morning and 1 capsule (300 mg) before bedtime. Do all this for 10 days. 20 capsule 06/11/2024 06/21/2024 ActiveStart: 04-03-2024 End: 27-60-0590ncvp 1 capsule by mouth in the morningcefdinir (Omnicef) 300 MG capsule Indications: Acute non-recurrent sinusitis of other sinus Take 1 capsule (300 mg) by mouth in the morning and 1 capsule (300 mg) before bedtime. Do all this for 10 days. 20 capsule 04/03/2024 04/13/2024 Activecephalexin 500 mg oral capsule (6 sources)Cephalosporin AntibacterialStart: 03-05-2024 End: 59-69-0658yknc 1 capsule by mouth in the morning, then take 1 capsule by mouth in the evening, then take 1 capsule by mouth at bedtimecephalexin (Keflex) 500 MG capsule Indications: Cellulitis of finger of left hand Take 1 capsule (50 0 mg) by mouth in the morning and 1 capsule (500 mg) in the evening and 1 capsule (500 mg) before bedtime. Do all this for 7 days. 21 capsule 03/05/2024 03/12/2024 ActiveStart: 06-01-2023 End: 64-65-2032jxqt 1 capsule by mouth in the morning, then take 1 capsule by mouth in the evening, then take 1 capsule by mouth at bedtime, then take 1 capsule by mouth three times dailycephalexin (Keflex) 500 MG capsule Indications: Onychocryptosis , Toe pain, right Take 1 capsule (500 mg) by mouth in the morning and 1 capsule (500 mg) in the evening and 1 capsule (500 mg) before bedtime. Do all this for 10 days. Take one tablet by mouth three times daily. 30 capsule 0 Activecodeine phosphate 2 mg/ml / guaiFENesin 20 mg/ml oral solution (10 sources)Opioid AgonistStart: 08-01-2024 End: 83-94-3674gzfi 10 mL by mouth four times daily as needed for cough guaiFENesin-codeine (Robitussin-AC) 100-10 MG/5ML syrup Indications: Chronic cough Take 10 mL by mouth 4 (four) times a day as needed for cough for up to 5 days 473 mL 08/01/2024 08/06/2024 ActiveStart: 06-11-2024 End: 11-74-7064insp 5 mL by mouth four times daily as needed for cough guaiFENesin-codeine (guaiFENesin AC) 100-10 MG/5ML syrup Indications: Acute cough Take 5 mL by mouth 4 (four) times a day as needed for cough for up to 14 days 240 mL 06/11/2024 06/25/2024 ActiveStart: 05-07-2024 End: 88-44-7126skpk 5 mL by mouth four times daily as needed for cough guaiFENesin-codeine (Robitussin-AC) 100-10 MG/5ML syrup Indications: Acute cough Take 5 mL by mouth4 (four) times a day as needed for cough for up to 5 days 240 mL 05/07/2024 05/12/2024 ActiveStart: 04-03-2024 End: 34-18-0907zian 5 mL by mouth four times daily as needed for cough guaiFENesin-codeine (Virtussin A/C) 100-10 MG/5ML syrup Indications: Acute cough Take 5 mL by mouth4 (four) times a day as needed for cough for up to 5 days 240 mL 04/03/2024 04/08/2024 Activecyclobenzaprine hydrochloride 10 mg oral tablet (20 sources)Muscle Relaxant End: 23-86-0901epwp 1 tablet by mouth three times daily as needed for muscle spasmscyclobenzaprine (Flexeril) 10 MG tablet Take 10 mg by mouth 3 (three) times a day as needed for muscle spasms. 05/22/2024 Discontinued (Therapy completed)1 ml denosumab 60 mg/ml prefilled syringe (14 sources)RANK Ligand InhibitorStart: 93-24-6563vbypqk 60 mg by subcutaneous injection onceProlia 60 MG/ML solution prefilled syringe Indications: Age- related osteoporosis without current pathological fracture INJECT 60MG SUBCUTANEOUSLY ONCE DIRECTED 1 mL 01/14/2025 ActiveStart: 43-89-8282Ujcbzo 60 mg/mL syringe Inject 1 mL (60 mg total) under the skin every 6 months. 08/01/2024 ActiveStart: 97-43-3011jijkve 1 mL by subcutaneous injection once denosumab (Prolia) 60 MG/ML solution prefilled syringe Indications: Age-related osteoporosis without current pathological fracture Inject 1 mL (60 mg) under the skin 1 (one) time for 1 dose 1 mL 08/01/2024 Activedocusate sodium 100 mg oral capsule (5 sources)docusate sodium (Colace) 100 MG capsule 1 (one) time each day at the same time. 0 Activedoxycycline hyclate 100 mg oral tablet (6 sources)Tetracycline-class DrugStart: 05-07-2024 End: 32-15-5296awcmlfirbug (Vibra-Tabs) 100 MG tablet Indications: Bronchitis Take 1 tablet (100 mg) by mouth in the morning and 1 tablet (100 mg) before bedtime. Do all this for 10 days. Take with a full glass of water and do not lie down for at least 30 minutes after.. 20 tablet 05/07/2024 05/17/2024 Active fexofenadine hydrochloride 180 mg oral tablet (15 sources)Histamine-1 Receptor AntagonistStart: 08-01-2024 End: 07-98-5293ojnf 1 tablet by mouth once daily as neededfexofenadine (Radha) 180 MG tablet Indications: Seasonal allergic rhinitis, unspecified trigger Take 1 tablet (180 mg) by mouth Daily as needed (alleriges) 90 tablet 3 08/01/2024 08/01/2025 Activefurosemide 20 mg oral tablet (20 sources)Loop DiureticStart: 04-04-2024 End: 34-13-5464jhzh 1 tablet by mouth once dailyfurosemide (Lasix) 20 MG tablet Indications: Cardiomegaly , Chronic congestive heart failure, unspecified heart failure type (HCC) Take 1 tablet (20 mg) by mouth Daily 90 tablet 3 07/18/2024 07/18/2025 Activegabapentin 300 mg oral capsule (20 sources)Anti-epileptic AgentStart: 52-83-0227yemi 1 capsule by mouth in the morninggabapentin (Neurontin) 300 MG capsule Indications: Acute low back pain without sciatica, unspecified back pain laterality Take 1 capsule (300 mg) by mouth in the morning and 1 capsule (300 mg) beforebedtime. 200 capsule 3 10/02/2024 Xgkhqd37 hr isosorbide mononitrate 30 mg extended release oral tablet (1 source)Nitrate VasodilatorStart: 2024 End: 71-96-0041wmgh 1 tablet by mouth once daily at bedtimeisosorbide mononitrate ER (Imdur) 30 mg 24 hr tablet Indications: Chest discomfort Take 1 tablet (30 mg) by mouth once daily at bedtime. Do not crush or chew. 90 tablet 3 2024 2025 Activelactulose 667 mg/ml oral solution (5 sources)Osmotic LaxativeStart: 61-79-0345uzkn 30 mL by mouth twice daily Constulose 10 GM/15ML solution TAKE 30 ML BY MOUTH TWICE DAILY FOR 3 DAYS 0 09/05/2022 Activemagnesium oxide 400 mg oral tablet (7 sources)Start: 2024 End: 70-03-8952ejuy 1 tablet by mouth twice dailymagnesium oxide (Mag-Ox) 400 mg (241.3 mg elemental) tablet Indications: Palpitations Take 1 tabletby mouth 2 times a day. 180 tablet 3 2024 2025 ActiveStart: 07-15-2024 End: 96-23-7308rlra 1 tablet by mouth once dailymagnesium oxide (Mag-Ox) 400 mg (241.3 mg magnesium) tablet Indications: Paroxysmal supraventricular tachycardia Take 1 tablet (400 mg) by mouth once daily. 90 tablet 3 07/15/2024 2024 Discontinuedmeloxicam 15 mg oral tablet (20 sources)Nonsteroidal Anti-inflammatory DrugStart: 17-89-9447rsif 1 tablet by mouth once dailymeloxicam (Mobic) 15 MG tablet Indications: Primary osteoarthritis involving multiple joints TAKE 1TABLET BY MOUTH ONCE DAILY 90 tablet 3 10/10/2024 ActivemethylPREDNISolone (3 sources)CorticosteroidStart: 05-07-2024 End: 95-62-4816kliddmTEMGJQFhzeyk (Medrol Dospak) 4 MG tablets Indications: Bronchitis Follow schedule on package instructions 21 tablet 05/07/2024 05/14/2024 Txlybd47 hr metoprolol succinate 50 mg extended release oral tablet (20 sources)beta-Adrenergic BlockerStart: 2024 End: 54-73-9659bxns 1 tablet by mouth once daily at bedtimemetoprolol succinate XL (Toprol XL) 100 mg 24 hr tablet Indications: Palpitations Take 1 tablet (100 mg) by mouth once daily at bedtime. Do not crush or chew. 90 tablet 3 2024 2025 ActiveStart: 2024 End: 06-03-4364uyce 1 tablet by mouth once daily in the morningmetoprolol succinate XL (Toprol-XL) 50 mg 24 hr tablet Indications: Palpitations Take 1 tablet (50 mg) by mouth once daily in the morning. 90 tablet 3 2024 2025 ActiveStart: 76-36-7270jcni 1 tablet by mouth every twenty-four hours in the morningmetoprolol succinate XL (Toprol-XL) 50 MG 24 hr tablet Indications: Benign essential hypertension TAKE 1 TABLET BY MOUTH IN THE MORNING AND 1 TABLET BY MOUTH BEFORE BEDTIME 180 tablet 3 10/10/2024 ActiveStart: 05-22-2024 End: 38-29-1173rjvl 1 tablet by mouth twice dailymetoprolol succinate XL (Toprol-XL) 50 mg 24 hr tablet Take 1 tablet (50 mg) by mouth twice a day. 0 05/22/2024 2024 Discontinued (Reorder)Start: 38-57-1434fupb 1 tablet by mouth every twenty-four hours in the morningmetoprolol succinate XL (Toprol-XL) 50 MG 24 hr tablet Indications: Benign essential hypertension (CMS/HCC) Take 1 tablet (50 mg) by mouth in the morning and 1 tablet (50 mg) before bedtime. 90 tablet 3 05/22/2024 ActiveStart: 08-08-2023 End: 26-48-1694iyqd 1 tablet by mouth once dailymetoprolol succinate XL (Toprol- XL) 50 MG 24 hr tablet Indications: Benign essential hypertension (CMS/HCC) TAKE 1 TABLET BY MOUTH ONCE DAILY 90 tablet 3 08/08/2023 05/22/2024 Discontinued (Reorder)take 1 tablet by mouth once dailymetoprolol succinate XL (Toprol-XL) 50 MG 24 hr tablet TAKE 1 TABLET BY MOUTH ONCE DAILY for 90 0 ActiveMultiple Vitamin (Multi Vitamin) tablet (20 sources)Multiple Vitamin (Multi Vitamin) tablet 1 (one) time each day at the same time. ActiveMultiple Vitamin (Multi Vitamin) tablet 1 (one) time each day at the same time. 0 Bsndwbddovkjixgwdt-Me-eznt-minerals tablet (1 source)take 1 tablet by mouth once pfxkqudffuhszqwnp-Vc-ottg-minerals tablet Take 1 tablet by mouth once daily. Activenortriptyline 10 mg oral capsule (20 sources)Tricyclic AntidepressantStart: 10-14-8987bstc 3 capsules by mouth once daily at bedtimenortriptyline (Pamelor) 10 MG capsule Indications: Primary insomnia , Anxiety TAKE 3 CAPSULES BY MOUTH AT BEDTIME ONCE DAILY 270 capsule 3 10/10/2024 ActiveStart: 76-59-2520oxbt 3 capsules by mouth once daily at bedtime nortriptyline (Pamelor) 10 MG capsule Indications: Primary insomnia , Anxiety TAKE 3 CAPSULES BY MOUTH AT BEDTIME ONCE DAILY 270 capsule 3 11/09/2022 Active pantoprazole 40 mg delayed release oral tablet (20 sources)Proton Pump InhibitorStart: 17-46-9428lezi 1 tablet by mouth once dailypantoprazole (ProtoNix) 40 MG EC tablet Indications: Gastroesophageal reflux disease with esophagitis without hemorrhage TAKE 1 TABLET BY MOUTH ONCE DAILY 90 tablet 3 09/11/2024 Activetake 1 tablet by mouth once dailypantoprazole (ProtoNix) 40 MG EC tablet TAKE 1 TABLET BY MOUTH ONCE DAILY for 90 0 Active plecanatide 3 mg oral tablet (5 sources)Start: 10-13-2022 End: 25-07-4953tpnq 1 tablet by mouth in the morningplecanatide (Trulance) tablet tablet Indications: Chronic idiopathic constipation Take 1 tablet (3 mg) by mouth in the morning. 30 tablet 11 10/13/2022 10/13/2023 Active microencapsulated potassium chloride 10 meq extended release oral tablet (1 source)Start: 04-04-2024 End: 83-70-9640kgzl 1 tablet by mouth once dailypotassium chloride CR (Klor-Con M10) 10 MEQ ER tablet Indications: Acute pulmonary edema (CMS/HCC) , Hypokalemia Take 1 tablet (10 mEq) by mouth Daily for 7 days Do not crush or chew. 7 tablet 04/04/2024 04/11/2024 Activesimvastatin 10 mg oral tablet (20 sources)HMG-CoA Reductase InhibitorStart: 09-13-2023 End: 91-35-9452djcj 1 tablet by mouth once dailysimvastatin (Zocor) 10 MG tablet Indications: Hyperlipidemia, unspecified hyperlipidemia type TAKE 1 TABLET BY MOUTH ONCE DAILY 90 tablet 3 10/10/2024 Activetake 1 tablet by mouth once daily simvastatin (Zocor) 10 MG tablet TAKE 1 TABLET BY MOUTH ONCE DAILY for 90 0 ActivetiZANidine 4 mg oral tablet (20 sources)Central alpha-2 Adrenergic AgonistStart: 68-08-9542kyzg 1 tablet by mouth every eight hours as neededtiZANidine (Zanaflex) 4 MG tablet Indications: Primary insomnia TAKE 1 TABLET BY MOUTH EVERY 8 HOURS NEEDED 270 tablet 10/07/2024 ActiveStart: 70-31-9320ayno 1 tablet by mouth three times daily tiZANidine (Zanaflex) 4 mg tablet Take 1 tablet (4 mg) by mouth 3 times a day. 04/16/2024 ActiveStart: 04-16-2024 End: 14-09-5488onwv 1 tablet by mouth every eight hours as neededtiZANidine (Zanaflex) 4 MG tablet Indications: Primary insomnia TAKE 1 TABLET BY MOUTH EVERY 8 HOURS NEEDED 270 tablet 04/16/2024 Activetake 1 tablet by mouth every eight hours as neededtiZANidine (Zanaflex) 4 MG tablet TAKE 1 TABLET BY MOUTH EVERY 8 HOURS NEEDED Orally Three timesa day as needed for 90 days Active zolpidem tartrate 10 mg oral tablet (20 sources)gamma-Aminobutyric Acid-ergic AgonistStart: 10-17-2023 End: 68-39-3406sjuc 1 tablet by mouth at bedtimezolpidem (Ambien) 10 MG tablet Indications: Primary insomnia TAKE 1 TABLET BY MOUTH AT BEDTIME 90 tablet 09/11/2024 ActiveStart: 01-52-3680yquf 1 tablet by mouth at bedtimezolpidem (Ambien) 10 MG tablet Indications: Primary insomnia Take 1 tablet (10 mg) by mouth at bedtime 90 tablet 1 04/13/2023 Active Completed/Discontinued Medications MedicationDrug Class(es)DatesSig (Normalized)Sig (Original)regadenoson (Lexiscan) injection 0.4 mg (1 source)Start: 09-18-2024 End: .4 mg, intravenous, Once, On Mon09/18/24 at 1100, For 1 doseTc- 99m tetrofosmin (Myoview) injection 30 millicurie (1 source)Start: 09-18-2024 End: millicurie, intravenous, Once in imaging, Starting on Mon09/18/24 at 1059, For 1 dose, Administer 45 to 90 minutes prior to imaging unless otherwise indicated. Problems Active Problems Problem ClassificationProblemDateDocumented DateEpisodic/ChronicAbdominal pain (4 sources)Left upper quadrant pain; Translations: [LEFT UPPER QUADRANT PAIN] Onset: 21-87-6975OkltfgfzXemesplprevrln/social admission (12 sources)First encounter by subject; Translations: [Persons encountering health services in other specified circumstances]Onset: 086453-39-9497 EpisodicAnxiety disorders (20 sources)Anxiety; Translations: [Anxiety disorder, unspecified]Onset: 898322-38-9875RjbfxkePdstrbp tract disease (1 source)Calculus of gallbladder without cholecystitis without obstruction; Translations: [CALCU GB W/O CHOLECYST W/O OBST]Onset: 03-85-9945Wfkghlln Blindness and vision defects (8 sources)Disorder of vision; Translations: [Problems with sight]Chronic Blindness and vision defects (1 source)Disorder of vision; Translations: [History of Vision problems]Episodic Cardiac dysrhythmias (20 sources)Paroxysmal supraventricular tachycardia; Translations: [Paroxysmal supraventricular tachycardia]Onset: 349643-27-5215RcpjqouQrrogks dysrhythmias (20 sources)Palpitations; Translations: [Palpitations]Onset: 07-15-2024 10-18-9309BzmclxhgKarscwh kidney disease (11 sources)Chronic kidney disease stage 3B ; Translations: [Stage 3b chronic kidney disease (HCC) (CMS/HCC)]Onset: 083063-61-3998AzpelqeQhovqvk kidney disease (2 sources)Chronic kidney disease; Translations: [Chronic kidney disease, stage 3a (Multi)]Onset: 27-01-4704Uzknheh obstructive pulmonary disease and bronchiectasis (1 source)Bronchiectasis, uncomplicated; Translations: [BRONCHIECTASIS UNCOMPLICATED]Onset: 26-46-3496VrpvqgsIpzlyma obstructive pulmonary disease and bronchiectasis (2 sources)Bronchitis; Translations: [Bronchitis, not specified as acute or chronic]08-55-6641VvwamscqVvrcupefah associated with dizziness or vertigo (15 sources)Lightheadedness; Translations: [Dizziness and giddiness]Onset: 651940-49-6935QuazvhzdBiomjfrozd heart failure; nonhypertensive (12 sources)Acute congestive heart failure; Translations: [Heart failure, unspecified]06-83-2493KzblktwZfhxtoqid of lipid metabolism (20 sources)Pure hypercholesterolemia, unspecified; Translations: [Hyperlipidemia]Onset: 421924-86-3633OftmyffObeergodtaclku and diverticulitis (20 sources)Diverticulosis of intestine, part unspecified, without perforation or abscess without bleeding; Translations: [Diverticulosis of colon]Onset: 344017-95-0400LawdwqoS Codes: Fall (4 sources)Fall; Translations: [Unspecified fall, initial encounter]04-03-2024 EpisodicEsophageal disorders (20 sources)Gastro-esophageal reflux disease without esophagitis; Translations: [Gastroesophageal reflux disease]Onset: 809373-66-4897VtrquvaIvodlbhsj hypertension (20 sources)Essential (primary) hypertension; Translations: [Benign essential hypertension]Onset: 767216-57-0747LiviuckJmhlm and electrolyte disorders (1 source)Hypokalemia; Translations: [Hypokalemia]32-30-2795Zbcgvvbp Immunizations and screening for infectious disease (2 sources)Needs influenza immunization; Translations: [Encounter for immunization]37-16-4490WyjoxqvpQvuiq disorders and dislocations; trauma-related (2 sources)Recurrent dislocation, right shoulder; Translations: [Dislocation of shoulder joint]Onset: 86-59-3265ImhyffkmAiupysmmdpbtp (2 sources)Lymphadenopathy; Translations: [Generalized enlarged lymph nodes] 29-29-3450UgrnuaddLjqrpsh and fatigue (8 sources)Asthenia; Translations: [Weakness]28-71-7101DvvrmgftDdsydfxprj disorders (20 sources)Decreased estrogen level; Translations: [Other primary ovarian failure]Onset: 024164-29-5021NstghcvVpreykspgadrs mental health disorders (4 sources)Primary insomnia; Translations: [Primary insomnia]18-67-3631Ewniqwm Mycoses (4 sources)Pain in toe; Translations: [Tinea unguium]37-34-0341EpayelwmSouito and vomiting (1 source)Nausea; Translations: [NAUSEA]Onset: 70-04-8688ScguxtmtPameubdcfcr chest pain (16 sources)Chest discomfort; Translations: [Other chest pain]Onset: 07-15-2024 97-48-8851AlbbmmugGszcgayuesy deficiencies (20 sources)Vitamin D deficiency; Translations: [Vitamin D deficiency, unspecified]Onset: 379419-73-8258VjudniyMabwzznug or stenosis of precerebral arteries (20 sources)Carotid artery occlusion; Translations: [Occlusion and stenosis of unspecified carotid artery]Onset: 106091-64-9149TkqqldxWfwcrdzuwtysbc (20 sources)Osteoarthritis of multiple joints ; Translations: [Polyosteoarthritis, unspecified]Onset: 870042-91-2141NlywsvcYsyenqtdyphn (5 sources)Age-related osteoporosis without current pathological fracture; Translations: [Senile osteoporosis]Onset: 390019-82-9645OhvgemoNtubo aftercare (1 source)Other care home (current) drug therapy; Translations: [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 THERAPY]Onset: 12-77-8120YnituydkMiqxz and ill-defined heart disease (20 sources)Cardiomegaly; Translations: [Cardiomegaly]Onset: 09-30-2022 16-40-3890QljevrwAtzvd bone disease and musculoskeletal deformities (4 sources)Subungual exostosis of great toe; Translations: [Disorder of bone, unspecified]93-78-4047GezqnzofHaeim circulatory disease (9 sources)H/O: hypertension; Translations: [Personal history of other diseases of circulatory system]EpisodicOther connective tissue disease (9 sources)History of total hip arthroplasty; Translations: [Hip joint replacement]ChronicOther connective tissue disease (20 sources)Musculoskeletal finding; Translations: [Presence of other bone and tendon implants]Onset: 308630-47-9136DqkdgioHhevk connective tissue disease (9 sources)H/O: arthritis; Translations: [Personal history of arthritis]Episodic Other connective tissue disease (8 sources)Trochanteric bursitis; Translations: [Enthesopathy of hip region] EpisodicOther connective tissue disease (3 sources)Unspecified rotator cuff tear or rupture of unspecified shoulder, not specified as traumatic; Translations: [Rotator cuff tear]EpisodicOther connective tissue disease (1 source)Fibromyalgia; Translations: [FIBROMYALGIA]Onset: 86-09-7903Muhvxurn Other connective tissue disease (2 sources)Pain of toe of left foot; Translations: [Pain in left toe(s)] 52-84-7061FapisbfyWcbea connective tissue disease (2 sources)Pain in axilla; Translations: [Pain in left upper arm]03-05-2024 EpisodicOther connective tissue disease (2 sources)Pain in right hand; Translations: [Pain in right hand]04-03-2024 EpisodicOther gastrointestinal disorders (9 sources)Disorder of digestive system; Translations: [Other digestive problems]EpisodicOther gastrointestinal disorders (1 source)Constipation, unspecified; Translations: [CONSTIPATION UNSPECIFIED] Onset: 90-08-6137RltnhxweVwuhu lower respiratory disease (2 sources)Fibrosis of lung; Translations: [Pulmonary fibrosis, unspecified] 87-85-7933CcdlgpsUerel lower respiratory disease (6 sources)Cough; Translations: [Acute cough]86-51-3506StzvajccCsxxs lower respiratory disease (2 sources)Rib pain; Translations: [Pleurodynia]35-68-6014EvrllmnmIkrsw lower respiratory disease (4 sources)Dyspnea; Translations: [Shortness of breath]85-19-5359SpwpdyvpMznlh lower respiratory disease (1 source)Acute pulmonary edema; Translations: [Acute pulmonary edema]04-04-2024 EpisodicOther nervous system disorders (1 source)Other chronic pain; Translations: [OTHER CHRONIC PAIN]Onset: 91-39-6167CxikozeSfodk nervous system disorders (20 sources)Difficulty walking; Translations: [Difficulty in walking, not elsewhere classified]Onset: 301177-07-4331YosimiaTmgzy nervous system disorders (2 sources)Carpal tunnel syndrome of left wrist; Translations: [Carpal tunnel syndrome, left upper limb]93-24-9458DjgjzkmHrsei nervous system disorders (4 sources)Numbness of hand; Translations: [Anesthesia of skin]03-05-2024 EpisodicOther non-traumatic joint disorders (20 sources)Derangement of right shoulder joint; Translations: [Other specific joint derangements of right shoulder, not elsewhere classified]Onset: 09-30-2022 85-85-3642JyvsvvsQkxoa non-traumatic joint disorders (11 sources)Hip pain; Translations: [Pain in joint, pelvic region and thigh] 08-79-9250AjbkhscoWwjhc non-traumatic joint disorders (1 source)Shoulder pain; Translations: [Pain in joint, shoulder region]Episodic Other non-traumatic joint disorders (2 sources)Pain of right wrist; Translations: [Pain in right wrist]04-03-2024 EpisodicOther nutritional; endocrine; and metabolic disorders (3 sources)Morbid (severe) obesity due to excess calories; Translations: [MORBID SEVERE OBES D/T EXCESS MONALISA]Onset: 53-76-7372XgbrsrwYvvir nutritional; endocrine; and metabolic disorders (1 source)Body mass index (BMI) 45.0-49.9, adult; Translations: [BODY MASS INDEX BMI 45.0-49.9 ADULT]Onset: 50-43-4520ImmsdyjRxgnp nutritional; endocrine; and metabolic disorders (20 sources)Morbid obesity; Translations: [Morbid (severe) obesity due to excess calories]Onset: 572283-20-3894AappmynSrbrq nutritional; endocrine; and metabolic disorders (2 sources)Obesity caused by energy imbalance; Translations: [Morbid (severe) obesity due to excess calories]90-73-0486ScsldceMmpmi nutritional; endocrine; and metabolic disorders (10 sources)Body mass index 40+ - severely obese; Translations: [Body mass index (BMI) 45.0-49.9, adult]Onset: 071127-86-1687QjasyrtYctre nutritional; endocrine; and metabolic disorders (2 sources)Hypomagnesemia; Translations: [Hypomagnesemia]22-58-5381QmfosmnUilst nutritional; endocrine; and metabolic disorders (2 sources)Body mass index (BMI) 40.0-44.9, adult; Translations: [Body mass index (BMI) 40.0-44.9, adult (Multi)]Onset: 63-19-5031YspijjvTetqi screening for suspected conditions (not mental disorders or infectious disease) (20 sources)Encounter for screening mammogram for malignant neoplasm of breast; Translations: [Patient encounter status]Onset: 35-24-5975XadxijclWitfz skin disorders (8 sources)Mass of upper limb; Translations: [Localized superficial swelling, mass, or lump]EpisodicOther skin disorders (4 sources)Ingrowing nail; Translations: [Ingrowing nail]95-53-3442XxmanbkuLrcav upper respiratory disease (20 sources)Allergic rhinitis; Translations: [Allergic rhinitis, unspecified] Onset: 252392-02-0932EnbzgapNigvf upper respiratory disease (2 sources)Seasonal allergic rhinitis; Translations: [Other seasonal allergic rhinitis]31-27-6475NhqahbvLgfnl upper respiratory infections (4 sources)Acute sinusitis; Translations: [Other acute sinusitis]04-03-2024 EpisodicPneumonia (except that caused by tuberculosis or sexually transmitted disease) (6 sources)Bilateral pneumonia; Translations: [Pneumonia, unspecified organism] 48-07-7849OqaoerkqMxfxqcru codes; unclassified (20 sources)Obstructive sleep apnea syndrome; Translations: [Obstructive sleep apnea (adult) (pediatric)]Onset: 163872-51-3734MjtyycqJhpkosyu codes; unclassified (8 sources)Walking aid use - finding; Translations: [Dependence on other enabling machines and devices]Onset: 811254-23-6202FuzmijlLvebogkm codes; unclassified (2 sources)Obstructive sleep apnea (adult) (pediatric); Translations: [Obstructive sleep apnea (adult) (pediatric)]Onset: 14-88-6116ZvszaazOluazvft codes; unclassified (2 sources)Dependence on other enabling machines and devices; Translations: [Dependence on other enabling machines and devices]Onset: 87-21-8385Yjznabg Residual codes; unclassified (9 sources)H/O: Disorder; Translations: [Personal history of other specified diseases]EpisodicResidual codes; unclassified (2 sources)Localized edema; Translations: [Localized edema]04-61-2218Acmwlgwp Residual codes; unclassified (8 sources)Never smoked tobacco; Translations: [Other specified health status] Onset: 505365-07-5746BalnyolfJjlnxlod codes; unclassified (2 sources)Other specified health status; Translations: [Other specified health status]Onset: 00-60-2571RubqgvpbWrnrkcd detachments; defects; vascular occlusion; and retinopathy (20 sources)Exudative age-related macular degeneration; Translations: [Exudative age-related macular degeneration, left eye, with active choroidal neovascularization]Onset: 482539-55-4178EmbwqasHxfpiypprn arthritis and related disease (4 sources)Ankylosing spondylitis; Translations: [Ankylosing spondylitis of thoracic region]95-10-9289OtihfemXtlo and subcutaneous tissue infections (2 sources)Cellulitis of finger of left hand; Translations: [Cellulitis of left finger]34-15-7476FcfbxuclApogwbqbmyn; intervertebral disc disorders; other back problems (20 sources)Lumbosacral spondylosis without myelopathy; Translations: [Spondylosis without myelopathy or radiculopathy, lumbosacral region]Onset: 631899-98-3840WzgghxiUrsdswctzqdj (1 source)LOW BACK PAIN, UNSPECIFIED; Translations: [LOW BACK PAIN, UNSPECIFIED] Onset: 59-81-6205Kteetddvqnkh (1 source)ACIDOSIS UNSPECIFIED; Translations: [ACIDOSIS UNSPECIFIED]Onset: 52-53-1495Wkyskbbwpjik (1 source)First encounter by ptmfoky57-05-8604Oodeigthtxah (2 sources)Supraventricular tachycardia, unspecified; Translations: [Supraventricular tachycardia, unspecified]Onset: 95-10-5089Dtwasoexxxqb (1 source)Supraventricular tachycardia, unspecified (CMS-HCC); Translations: [Supraventricular tachycardia, unspecified (CMS-HCC)]Onset: 07-15-2024 Past or Other Problems Problem ClassificationProblemDateDocumented DateEpisodic/ChronicDiabetes mellitus without complication (20 sources)Impaired glucose tolerance; Translations: [Impaired glucose tolerance (oral)]Onset: 444056-74-7023IoivgijgNicc disorders (20 sources)Mood disordersOnset: 367342-31-2731Mlvwrbcruptz breast conditions (20 sources)Breast hematoma; Translations: [Other specified disorders of breast] Onset: 277768-03-9833SprqgqfuRvyno bone disease and musculoskeletal deformities (20 sources)Osteopenia; Translations: [Other specified disorders of bone density and structure, unspecified site]Onset: 797416-55-2865VvqvnrzjFhsci connective tissue disease (20 sources)Pain of toe of right foot; Translations: [Pain in right toe(s)] Onset: 745876-80-3105QfpasbpvHljkf connective tissue disease (20 sources)Recurrent falls ; Translations: [Repeated falls]Onset: 09-30-2022 53-55-2309OdoqnfcpAyrvs injuries and conditions due to external causes (7 sources)At high risk for fall; Translations: [History of falling]Onset: 833328-43-0681QwjuruioKpaff injuries and conditions due to external causes (2 sources)History of falling; Translations: [History of falling]Onset: 00-92-2551WixjmjmiZkyes lower respiratory disease (20 sources)Chronic cough; Translations: [Chronic cough]Onset: 09-30-2022 18-55-8936VpeyizxmNlcnk nervous system disorders (20 sources)Loss of sense of smell; Translations: [Anosmia]Onset: 09-30-2022 55-17-5131VtgmfwtrRhemf nervous system disorders (20 sources)Loss of taste; Translations: [Parageusia]Onset: EpisodicResidual codes; unclassified (1 source)Family history of malignant neoplasm of breast; Translations: [FAMILY HX MALIG NEOPLASM OF BREAST]Onset: 52-31-6777UqpcijitCadtmadw codes; unclassified (20 sources)Edema; Translations: [Edema, unspecified]Onset: EpisodicResidual codes; unclassified (20 sources)Insomnia; Translations: [Insomnia, unspecified]Onset: 09-30-2022 05-93-2001MvfypwlrDucaunrhrcn; intervertebral disc disorders; other back problems (20 sources)Low back pain; Translations: [Low back pain]Onset: 09-30-2022 99-73-7978BhqifcqmLbcaeofxxxhj (6 sources)Onset: 07-15-2024 Resolved: 707809-71-5640Fpxjrcvzqixx (2 sources)Supraventricular tachycardia, unspecified; Translations: [Supraventricular tachycardia, unspecified]Onset: 87-16-4324Bgaksscehleo (1 source)Supraventricular tachycardia, unspecified (CMS-HCC); Translations: [Supraventricular tachycardia, unspecified (CMS-HCC)]Onset: 00-78-2088SEFDDBB: Highlighted row has not occurred!Residual codes; unclassified (2 sources)DiseaseEpisodic Results Test NameValueInterpretationReference RangeFacilityXR ANKLE LT MIN 3Von 37-17-3606IixF[place] [address] XRay Report Signed Patient: LUMA RIBEIRO MR#: [id number] : 1945 Acct:[id number] Age/Sex: 79 / F ADM Date: 02/17/25 Loc: RAD Attending Dr: Kelly Moses D.P.M. Ordering Physician: Kelly Moses D.P.M. Date of Service: 02/17/25 Procedure(s): XR ankle LT min 3V Accession Number(s): [id number] cc: ROC STEELE ; Kelly Moses D.P.M. The [address] [id number] Patient Name: LUMA RIBEIRO MRN: [id number] date: 1945 Sex: F Assigned Patient Location: RAD Current Patient Location: RAD Accession/Order Number: [id number] Exam Date: 02/17/2025 10:50 Report Date: 02/17/2025 13:59 At the request of: KELLY MOSES DPRen Procedure: XR ankle LT min 3V LEFT ANKLE - 3 views CLINICAL DATA: Follow-up ankle fractures COMPARISON: 01/23/2025 Semi weightbearing AP, lateral and oblique views were obtained. There is a lateral plate and multiple screws along the distal fibula. 3 screws cross to the tibia. The hardware appears intact and unchanged from the prior. The lateral skin delfin have been removed. The fractures at the distal fibula and medial malleolus showing no significant interval change. There is no new fracture or dislocation. Mild diffuse soft tissue swelling is seen. XR/XR ankle LT min 3V IMPRESSION: STABLE ANKLE FRACTURES AND FIXATION HARDWARE Impression dictated by: Sushila Zeng M.D. 02/17/2025 1:59 PM Dictation Location: [place] [address] Electronically authenticated by: [id number] Date: 02/17/2025 13:59 Dictated By: Sushila Zeng M.D. Signed By: 02/17/25 1402 DD/ 1359 TD/TT: Elementary Reading Specialist:TBHRadiology, Radiologist, - 02/17/2025 [place] [address] XRay Report Signed Patient: LUMA RIBEIRO MR#: [id number] : 1945 Acct:[id number] Age/Sex: 79 / F ADM Date: 02/17/25 Loc: RAD Attending Dr: Kelly Moses D.P.M. Ordering Physician: Kelly Moses D.P.M. Date of Service: 02/17/25 Procedure(s): XR ankle LT min 3V Accession Number(s): [id number] cc: ROC STEELE ; Kelly Moses D.P.M. The [address] [address] Patient Name: LUMA RIBEIRO MRN: [id number] date: 1945 Sex: F Assigned Patient Location: [facility] Current Patient Location: [facility] Accession/Order Number: [id number] Exam Date: 02/17/2025 10:50 Report Date: 02/17/2025 13:59 At the request of: KELLY MOSES DPM Procedure: XR ankle LT min 3V LEFT ANKLE - 3 views CLINICAL DATA: Follow-up ankle fractures COMPARISON: 01/23/2025 Semi weightbearing AP, lateral and oblique views were obtained. There is a lateral plate and multiple screws along the distal fibula. 3 screws cross to the tibia. The hardware appears intact and unchanged from the prior. The lateral skin delfin have been removed. The fractures at the distal fibula and medial malleolus showing no significant interval change. There is no new fracture or dislocation. Mild diffuse soft tissue swelling is seen. XR/XR ankle LT min 3V IMPRESSION: STABLE ANKLE FRACTURES AND FIXATION HARDWARE Impression dictated by: Sushila Zeng M.D. 02/17/2025 1:59 PM Dictation Location: [place] [address] Electronically authenticated by: [id number] Y Date: 02/17/2025 13:59 Dictated By: Sushila Zeng M.D. Signed By: 02/17/25 1407 DD/ 1352 TD/TT: Elementary Reading Specialist: FARZANEH HealthcareRadiology Study observation (narrative)[facility] HealthcareXR ANKLE LT MIN 3VOrdered By: Radiologist Radiology on 43-09-6489[facility] Work Phone: XR ANKLE LT MIN 3Von 05-89-6776[place]qr[place] [address] XRay Report Signed Patient: LUMA RIBEIRO MR#: [id number] : 1945 Acct:[id number] Age/Sex: 79 / F ADM Date: 01/23/25 Loc: RAD Attending Dr: Kelly Moses D.P.M. Ordering Physician: Kelly Moses D.P.M. Date of Service: 01/23/25 Procedure(s): XR ankle LT min 3V Accession Number(s): [id number] cc: ROC STEELE ; Kelly Moses D.P.M. The [address] [address] Patient Name: LUMA RIBEIRO MRN: [id number] date: 1945 Sex: F Assigned Patient Location: RAD Current Patient Location: RAD Accession/Order Number: [id number] Exam Date: 01/23/2025 13:15 Report Date: 01/23/2025 13:46 At the request of: KELLY MOSES DPM Procedure: XR ankle LT min 3V LEFT [...] Jr., D.O. 01/23/2025 1:46 PM Dictation Location: [place] [address] Electronically authenticated by: [id number] Y Date: 01/23/2025 13:46 Dictated By: Jacye De La Garza M.D. Signed By: 01/23/25 1349 DD/ 1346 TD/TT: Elementary Reading Specialist:TBHRadiology, Radiologist, MD - 01/23/2025 [place] [address] XRay Report Signed Patient: LUMA RIBEIRO MR#: [id number] : 1945 Acct:[id number] Age/Sex: 79 / F ADM Date: 01/23/25 Loc: RAD Attending Dr: Kelly Moses D.P.M. Ordering Physician: Kelly Moses D.P.M. Date of Service: 01/23/25 Procedure(s): XR ankle LT min 3V Accession Number(s): [id number] cc: ROC STEELE ; Kelly Moses D.P.M. The [place] [id number] Patient Name: LUMA RIBEIRO MRN: [id number] date: 1945 Sex: F Assigned Patient Location: [facility] Current Patient Location: RAD Accession/Order Number: [id number] Exam Date: 01/23/2025 13:15 Report Date: 01/23/2025 13:46 At the request of: KELLY MOSES DPM Procedure: XR ankle LT min 3V LEFT [...] Jr., D.O. 01/23/2025 1:46 PM Dictation Location: [place] [address] Electronically authenticated by: [id number] Y Date: 01/23/2025 13:46 Dictated By: Jayce De La Garza M.D. Signed By: 01/23/25 1349 DD/ 134 TD/TT: Elementary Reading Specialist: FARZANEH HealthcareRadiology Study observation (narrative)[facility] HealthcareXR ANKLE LT MIN 3VOrdered By: Radiologist Radiology on 57-05-2125[facility] Work Phone: MR LUMBAR SPINE WO CONon 89-83-1874[place]dwF[place] [address] Magnetic Resonance Report Signed Patient: LUMA RIBEIRO MR#: [id number] : 1945 Acct:[id number] Age/Sex: 78 / F ADM Date: 10/01/24 Loc: MRI Attending Dr: Daron Sanchez M.D. Ordering Physician: Daron Sanchez M.D. Date of Service: 10/01/24 Procedure(s): MR lumbar spine wo con Accession Number(s): [id number] cc: ROC STEELE ; Daron Sanchez M.D. The [place] [id number] Patient Name: LUMA RIBEIRO MRN: [id number] date: 1945 Sex: F Assigned Patient Location: MRI Current Patient Location: MRI Accession/Order Number: [id number] Exam Date: 10/01/2024 14:28 Report Date: 10/01/2024 [...] Bach M.D. 10/01/2024 2:34 PM Dictation Location: [place] [address] Electronically authenticated by: [id number] Y Date: 10/01/2024 14:34 Dictated By: Srinivasa Bach M.D. Signed By: 10/01/24 1437 DD/ 1434 TD/TT: Elementary Reading Specialist:TBHRadiology, Radiologist, MD - 10/01/2024 [place] [address] Magnetic Resonance Report Signed Patient: LUMA RIBEIRO MR#: [id number] : 1945 Acct:[id number] Age/Sex: 78 / F ADM Date: 10/01/24 Loc: MRI Attending Dr: Daron Sanchez M.D. Ordering Physician: Daron Sanchez M.D. Date of Service: 10/01/24 Procedure(s): MR lumbar spine wo con Accession Number(s): [id number] cc: ROC STEELE ; Daron Sanchez M.D. The [place] [address] Patient Name: LUMA RIBEIRO MRN: [facility]:[id number] date: 1945 Sex: F Assigned Patient Location: MRI Current Patient Location: MRI Accession/Order Number: [id number] Exam Date: 10/01/2024 14:28 Report Date: 10/01/2024 [...] Bach M.D. 10/01/2024 2:34 PM Dictation Location: [place] [address] Electronically authenticated by: [id number] Y Date: 10/01/2024 14:34 Dictated By: Srinivasa Bach M.D. Signed By: 10/01/24 1437 DD/ 1434 TD/TT: Elementary Reading Specialist: FARZANEH [facility] HospitalRadiology Study observation (narrative)[facility] HospitalMR LUMBAR SPINE WO CONOrdered By: Radiologist Radiology on 46-32-7718JJPWTwo Rivers Psychiatric Hospital Work Phone: NUCLEAR STRESS TESTon 74-05-7069TUZDFUL STRESS TEST Interpreted By: David Castle and Giannuzzi Michael STUDY: MYOCARDIAL PERFUSION STRESS TEST WITH LEXISCAN Performing facility: [facility], [address] [place] [address], [address], [address] Provider: Amber Hawley MD, FACC PCP: [...] Denies smoking. COMPARISON: No comparison. ACCESSION NUMBER(S): [id number] ORDERING CLINICIAN: AMBER HAWLEY TECHNIQUE: TWO DAY [...] David Castle 09/19/2024 3:00 PM Dictation workstation: [id number]g Health [facility] Campus TRANSTHORACIC ECHO (TTE) COMPLETEon 28-68-8684PSTAAYDYHXNKL ECHO (TTE) COMPLETE [address], [address] [place] [address] TRANSTHORACIC ECHOCARDIOGRAM REPORT Patient Name: LUMA Joya GEMA Deal Physician: [id number] David Castle MD, [facility] Study Date: 09/18/2024 Ordering Provider: [id number] AMBER HAWLEY MRN/PID: [id number] Fellow: Nurse: Date of /Age: 7 1945 / Human Projectile: Viry ely RDCS, RVT Gender Assigned at F Additional Staff: : Height: 162.56 cm Admit Date: Weight: 122.02 kg Admission Status: Outpatient BSA / BMI: 2.22 m2 / 46.17 Department Location: [facility] kg/m2 [place] Blood Pressure: 124 /86 mmHg Study Type: TRANSTHORACIC ECHO (TTE) COMPLETE Diagnosis/ICD: Supraventricular tachycardia-I47.1; Abnormal electrocardiogram [ECG] [EKG]-R94.31; Palpitations-R00.2 Indication: Edema, HTN, Hyperlipidemia, Carotid Stenosis, CARO, CKD-Stage III, Morbid Obesity CPT Codes: Echo Complete w Full Doppler-29703 Study Detail: The following Echo studies were [...] Decel Rate: 338.04 c (more content not included)...SarlesUnCleveland ClinicUS Heart TransthoracicOrdered By: David Castle on 65-27-1919Ibsajy Valve Area by Continuity of Peak Velocity2.65 sn4MgmrrxnakmAccess Hospital [facility] Work Phone: [phone] Valve Area by Continuity of VTI1.93 cm2 [facility] Work Phone: [phone] mn uhsx1qgKuMhwwsfmzxdMercy Health [facility] Work Phone: [phone] pk dvtd32jeGhWpnzsogsnhMercy Health [facility] Hospital Work Phone: [phone] pk vel1.81 m/[facility] Work Phone: [phone] vol index A/L44.1 ml/u4PedvpfqdwuMercy Health Urbana Hospital Work Phone: [phone] A4C EF42.7UnMercy Health Urbana Hospital Work Phone: [phone] Biplane EF36 %[facility] Work Phone: [phone] EF63 %[facility] Work Phone: [phone] cmUnMercy Health Urbana Hospital Work Phone: [phone] diam2.27 [facility] Work Phone: [phone] avg E/e' ratio26.81[facility] Work Phone: MV E/A ratio0.79UnMercy Health Urbana Hospital Work Phone: [phone] free wall pk S'15.98 cm/[facility] Work Phone: [facility] Work Phone: US Heart Transthoracicon 09-18-2024 [facility] [address] [place] [address], [address], [place] [address] TRANSTHORACIC ECHOCARDIOGRAM REPORT Patient Name: LUMA RIBEIRO Toyin Physician: [id number] David Castle MD, [facility] Study Date: 09/18/2024 Ordering Provider: [id number] AMBER HAWLEY MRN/PID: [id number] Fellow: Nurse: Date of /Age: 7 1945 Human Projectile: Viry ely RDCS, RVT Gender Assigned at F Additional Staff: : Height: 162.56 cm Admit Date: Weight: 122.02 kg Admission Status: Outpatient BSA / BMI: 2.22 m2 / 46.17 Department Location: [facility] kg/m2 [place] Blood Pressure: 124 /86 mmHg Study Type: TRANSTHORACIC ECHO (TTE) COMPLETE Diagnosis/ICD: Supraventricular tachycardia-I47.1; Abnormal electrocardiogram [ECG] [EKG]-R94.31; Palpitations-R00.2 Indication: Edema, HTN, Hyperlipidemia, Carotid Stenosis, CARO, CKD-Stage III, Morbid Obesity CPT Codes: Echo Complete w Full Doppler-51099 Study Detail: The following Echo studies were [...] m/s E/e' Ratio: 26.81 (more content not included)...David Romero MD - 09/18/[address], [address], [place] [address] TRANSTHORACIC ECHOCARDIOGRAM REPORT Patient Name: LUMA K GEMA Deal Physician: [id number] David Castle MD, [facility] Study Date: 09/18/2024 Ordering Provider: [id number] AMBER HAWLEY MRN/PID: [id number] Fellow: Nurse: Date of /Age: 7 1945 Human Projectile: Viry ely RD, RVT Gender Assigned at F Additional Staff: : Height: 162.56 cm Admit Date: Weight: 122.02 kg Admission Status: Outpatient BSA / BMI: 2.22 m2 / 46.17 Department Location: [facility] kg/m2 [place] Blood Pressure: 124 /86 mmHg Study Type: TRANSTHORACIC ECHO (TTE) COMPLETE Diagnosis/ICD: Supraventricular tachycardia-I47.1; Abnormal electrocardiogram [ECG] [EKG]-R94.31; Palpitations-R00.2 Indication: Edema, HTN, Hyperlipidemia, Carotid Stenosis, CARO, CKD-Stage III, Morbid Obesity CPT Codes: Echo Complete w Full Doppler-32283 Study Detail: The following Echo studies were [...] Dimensionless Index: 0.48 AORTI (more content not included)...[facility] Work Phone: LIPID PANEL, STANDARDon 12-94-3827Zenhqbazdnd [Mass/Vol]153 mg/dLNormal<200Quest DiagnosticsComment on above:Order Comment: COLLECTION KIT GIVEN TO PATIENT. PATIENT ADVISED TO RETURN.Performed By: #### 7600 #### [facility] [address], [address] Chocolate Maker: Bryce LAMholesterol in HDL [Mass/Vol]49 mg/dLLow> OR = 50Quest DiagnosticsComment on above:Order Comment: COLLECTION KIT GIVEN TO PATIENT. PATIENT ADVISED TO RETURN.Performed By: #### 0160 #### [facility] [address], [address] [place], [place] [address] Chocolate Maker: Bryce LAMholesterol in LDL [Mass/Vol]82 mg/dLNormal Quest DiagnosticsComment on above:Order Comment: COLLECTION KIT GIVEN TO PATIENT. PATIENT ADVISED TO RETURN.Result Comment: Reference range: <100 Desirable range <100 mg/dL for primary prevention; <70 mg/dL for patients with CHD or diabetic patients with > or = 2 CHD risk factors. LDL-C is now calculated using the Mike-Raymundo calculation, which is a validated novel method providing better accuracy than the Friedewald equation in the estimation of LDL-C. Mike JURADO et al. MARGO. 2013;310(19): 0806-6891 (http://education.Love With Food.Renovagen/faq/BYX873)Performed By: #### 9420 #### [facility] [address], [address] [place], [place] [address] Chocolate Maker: Bryce LAMholestjose.total/Cholesterol in HDL [Mass ratio]3.1 {ratio}Normal<5.0Quest DiagnosticsComment on above:Order Comment: COLLECTION KIT GIVEN TO PATIENT. PATIENT ADVISED TO RETURN.Performed By: #### 0780 #### [facility] [address], [address] [place] [address] Chocolate Maker: Bryce BOOTH HDL HDVPZCHDILH992 mg/dL (calc)Normal<130 [facility] DiagnosticsComment on above:Order Comment: COLLECTION KIT GIVEN TO PATIENT. PATIENT ADVISED TO RETURN.Result Comment: For patients with diabetes plus 1 major ASCVD risk factor, treating to a non-HDL-C goal of <100 mg/dL (LDL-C of <70 mg/dL) is considered a therapeutic option.Performed By: #### 7600 #### [facility] [address], [address] [place] [address] Chocolate Maker: Bryce Larsen MDTriglyceride [Mass/Vol]121 mg/dLNormal<150 [facility] DiagnosticsComment on above:Order Comment: COLLECTION KIT GIVEN TO PATIENT. PATIENT ADVISED TO RETURN.Performed By: #### 7600 #### [facility] [address], [address] [place] [address] Chocolate Maker: Bryce Larsen [facility] HOSPITALEXA BONE DENSITYon 64-36-6446NRDT BONE DENSITYExamination: DEXA BONE DENSITY Clinical History: Other primary ovarian failure Technique: Bone density study was performed. T score values for the lumbar spine, left femoral neckand left forearm were obtained. Comparison: None Findings: Value for the lumbar spine from L1-L4 is -0.4. Value for the left femoral neck is -1.0. Value for the left forearm is -3.7. Findings are compatible osteoporosis with high increased fracturerisk. IMPRESSION: Impression: Findings compatible with osteoporosis with high increased fracture risk. ELECTRONICALLY SIGNED BY: Juan Carlos Squires M.D.NormalNot AvailableMM TOMOSYNTHESIS SCREENING BIon 21-87-6178IoeF[place]ington, [place] [address] Mammography Report Signed Patient: LUMA RIBEIRO MR#: [id number] : 1945 Acct:[id number] Age/Sex: 78 / F ADM Date: 07/17/24 Loc: MAMMO Attending Dr: ROC STEELE Ordering Physician: ROC STEELE Results: Date of Service: 07/17/24 Follow Up: Procedure(s): MM tomosynthesis screening BI Accession Number(s): [id number] cc: ROC STEELE Patient Name: LUMA RIBEIRO MR#: [id number] : 1945 Exam Date: 07/17/2024 Ordering Doctor: DR ROC STEELE M.D. RADIOLOGY REPORT PROCEDURE: MM TOMOSYNTHESIS SCREENING BI COMPARISON: MG MAMM SCREEN 3D RON CAD, 06/06/2022. MG MAMM ORN SCRN W CAD DIG, 12/03/2012. INDICATIONS: Screening Calculator Name NCI Breast Cancer Risk Assessment Tool 5 Year Breast Cancer Risk 1.10% Lifetime Breast Cancer Risk 2.20% Personal Breast Cancer No Personal Ovarian Cancer No Treatments None Family Cancers Aunt-paternal with breast cancer at age 60. LOCATION: [facility] BREAST COMPOSITION: There are scattered areas of [...] Signed By: 07/18/24 1620 DD/ 1619 TD/TT: Elementary Reading Specialist:TBHRadiology, Radiologist, MD - 07/18/2024 [place] [address] Mammography Report Signed Patient: LUMA RIBEIRO MR#: [id number] : 1945 Acct:[id number] Age/Sex: 78 / F ADM Date: 07/17/24 Loc: MAMMO Attending Dr: ROC STEELE Ordering Physician: ROC STEELE Results: Date of Service: 07/17/24 Follow Up: Procedure(s): MM tomosynthesis screening BI Accession Number(s): [id number] cc: ROC STEELE Patient Name: LUMA RIBEIRO MR#: [id number] : 1945 Exam Date: 07/17/2024 Ordering Doctor: [...] cancer at age 61. LOCATION: [facility] BREAST COMPOSITION: There are scattered areas of [...] Signed By: 07/18/24 1620 DD/ 1619 TD/TT: Elementary Reading Specialist: [facility] HospitalRadiology Study observation (narrative)[facility] TOMOSYNTHESIS SCREENING BIOrdered By: Radiologist Radiology on 98-71-6401UJTUTwo Rivers Psychiatric Hospital Work Phone: ECG 12 Leadon 60-07-7673RbxrqikrlqAccess Hospital [facility] Work Phone: [facility] Work Phone: Laboratory - Hematology and Cell countson 07-11-2024 HbA1c (Bld) [Mass fraction]6.1 %[facility] HospitalNo Panel Informationon 07-11-2024 [facility] HospitalXR HIP 2 OR 3 VW RIGHTon 78-98-9027EO HIP 2 OR 3 VW RIGHTEXAM: XR HIP 2 OR 3 VW RIGHT [...] electronically signed and approved by the interpreting Radiologist.NormalNot AvailableCOMPREHENSIVE METABOLIC PANELon 51-74-6266Hllocgx [Mass/Vol]4.0 g/dLNormal3.6-5.1[facility] DiagnosticsComment on above:Performed By: #### 00631, 622 #### [facility] [place] [address] Chocolate Maker: Bryce Larsen MDAlbumin/Globulin [Mass ratio]1.7 {ratio}Normal 1.0-2.5Quest DiagnosticsComment on above:Performed By: #### 37332, 622 #### [facility] [place] [address] Chocolate Maker: Bryce Larsen MDALP [Catalytic activity/Vol]99 U/AGdtikf68-147 [facility] DiagnosticsComment on above:Performed By: #### 61914, 622 #### [facility] [place] [address] Chocolate Maker: Bryce Larsen MDALT [Catalytic activity/Vol]8 U/LNormal6-29 [facility] DiagnosticsComment on above:Performed By: #### 54255, 622 #### [facility] [place] [address] Chocolate Maker: Bryce Larsen MDAST [Catalytic activity/Vol]19 U/KUdsvmg71-57 [facility] DiagnosticsComment on above:Performed By: #### 30443, 622 #### [facility] [place] [address] Chocolate Maker: Bryce Larsen MDBilirubin [Mass/Vol]0.6 mg/dLNormal0.2-1.2 [facility] DiagnosticsComment on above:Performed By: #### 63214, 622 #### [facility] of [address], [address] [place] [address] Chocolate Maker: Bryce LAMalcium [Mass/Vol]8.9 mg/dLNormal8.6-10.4Quest DiagnosticsComment on above:Performed By: #### 44813, 622 #### [facility] of [place] [address] Chocolate Maker: Bryce Larsen MDChloride [Moles/Vol]104 mmol/BMibopd23-816 [facility] DiagnosticsComment on above:Performed By: #### 65622, 622 #### [facility] of [place] [address] Chocolate Maker: Bryce Larsen MDCO2 [Moles/Vol]27 mmol/GXaflhl98-62Fgozl DiagnosticsComment on above:Performed By: #### 13565, 622 #### [facility] of [place] [address] Chocolate Maker: Bryce LAMreatinine [Mass/Vol]1.11 mg/dLHigh0.60-1.00 [facility] DiagnosticsComment on above:Performed By: #### 84864, 622 #### [facility] [place] [address] Chocolate Maker: Bryce Larsen MDGFR/1.73 sq M.predicted among non-blacks MDRD (S/P/Bld) [Vol rate/Area]51 mL/min/{1.73_m2}Low> OR = 60Quest DiagnosticsComment on above:Performed By: #### 10436, 622 #### [facility] of [place] [address] Chocolate Maker: Bryce Larsen MDGlobulin (S) [Mass/Vol]2.3 g/dLNormal1.9-3.7 [facility] DiagnosticsComment on above:Performed By: #### 50460, 622 #### [facility] [place] [address] Chocolate Maker: Bryce Larsen MDGlucose [Mass/Vol]145 mg/oIFuun40-069Fpgpk DiagnosticsComment on above:Result Comment: Non-fasting reference interval For someone without known diabetes, a glucose value >125 mg/dL indicates that they may have diabetes and this should be confirmed with a follow-up test.Performed By: #### 40430, 622 #### [facility] [place] [address] Chocolate Maker: Bryce Larsen MDPotassium [Moles/Vol]4.2 mmol/LNormal3.5-5.3 [facility] DiagnosticsComment on above:Performed By: #### 53977, 622 #### [facility] [place] [address] Chocolate Maker: Bryce Larsen MDProtein [Mass/Vol]6.3 g/dLNormal6.1-8.1Quest DiagnosticsComment on above:Performed By: #### 83923, 622 #### [facility] [place] [address] Chocolate Maker: Bryce Larsen MDSodium [Moles/Vol]138 mmol/NXvirgy855-336Bxuez DiagnosticsComment on above:Performed By: #### 16659, 622 #### [facility] [place] [address] Chocolate Maker: Bryce Larsen MDUrea nitrogen [Mass/Vol]19 mg/dLNormal7-25 [facility] DiagnosticsComment on above:Performed By: #### 06909, 622 #### [facility] [place] [address] Chocolate Maker: Bryce Larsen MDUrea nitrogen/Creatinine [Mass ratio]17 mg/mg Normal6-22Quest DiagnosticsComment on above:Performed By: #### 88775, 622 #### [facility] [address] [place] [address] Chocolate Maker: Bryce Larsen MDMAGNESIUMon 97-37-8042Wdsatocct [Mass/Vol]2.0 mg/dLNormal1.5-2.5Quest DiagnosticsComment on above:Order Comment: FASTING:NO FASTING: NOPerformed By: #### 20906, 622 #### [facility] [place] [address] Chocolate Maker: Bryce Larsen MDB TYPE NATRIURETIC PEPTIDE (BNP)on 06-12-2024 Natriuretic peptide B (Bld) [Mass/Vol]108 pg/mLHigh<100Quest DiagnosticsComment on above:Result Comment: BNP levels increase with age in the general population with the highest values seen in individuals greater than 75 years of age. Reference: J. Am. Vladislav. Cardiol. 2002; 40:976-982.Performed By: #### 57372 #### [facility] [place] [address] Chocolate Maker: Bryce Larsen MDCOMPREHENSIVE METABOLIC PANELon 05-23-2024 Albumin [Mass/Vol]3.6 g/dLNormal3.6-5.1Quest DiagnosticsComment on above: Performed By: #### 622, 87325 #### [facility] [place] [address] Chocolate Maker: Bryce Larsen MDAlbumin/Globulin [Mass ratio]1.3 {ratio}Normal 1.0-2.5Quest DiagnosticsComment on above:Performed By: #### 622, 94694 #### [facility] [place] [address] Chocolate Maker: Bryce Larsen MDALP [Catalytic activity/Vol]87 U/EUkkjga90-755 [facility]osticsComment on above:Performed By: #### 622, 35228 #### [facility] [place] [address] Chocolate Maker: Bryce Larsen MDALT [Catalytic activity/Vol]15 U/LNormal6-29 [facility]osticsComment on above:Performed By: #### 622, 34883 #### [facility] of [place] [address] Chocolate Maker: Bryce Larsen MDAST [Catalytic activity/Vol]31 U/BCblzvw04-57 [facility]osticsComment on above:Performed By: #### 622, 01972 #### [facility] of [place] [address] Chocolate Maker: Bryce Larsen MDBilirubin [Mass/Vol]0.5 mg/dLNormal0.2-1.2 [facility]osticsComment on above:Performed By: #### 622, 47255 #### [facility] of [place] [address] Chocolate Maker: Bryce Larsen MDCalcium [Mass/Vol]9.1 mg/dLNormal8.6-10.4Quest DiagnosticsComment on above:Performed By: #### 622, 70577 #### [facility] of [place] [address] Chocolate Maker: Bryce Larsen MDChloride [Moles/Vol]103 mmol/DHjnlbz75-962 [facility]osticsComment on above:Performed By: #### 622, 06760 #### [facility] of [place] [address] Chocolate Maker: Bryce Laresn MDCO2 [Moles/Vol]27 mmol/BJlgmtq03-53Sdfbk DiagnosticsComment on above:Performed By: #### 622, 58268 #### [facility] of [place] [address] Chocolate Maker: Bryce Larsen MDCreatinine [Mass/Vol]1.04 mg/dLHigh0.60-1.00 [facility]osticsComment on above:Performed By: #### 622, 51576 #### [facility] of [address] [place] [address] Chocolate Maker: Bryce Larsen MDGFR/1.73 sq M.predicted among non-blacks MDRD (S/P/Bld) [Vol rate/Area]55 mL/min/{1.73_m2}Low> OR = 60Quest DiagnosticsComment on above:Performed By: #### 622, 69239 #### [facility] [address], [address] [place] [address] Chocolate Maker: Bryce Larsen MDGlobulin (S) [Mass/Vol]2.7 g/dLNormal1.9-3.7 [facility]osticsComment on above:Performed By: #### 622, 30051 #### [facility] [place] [address] Chocolate Maker: Bryce Larsen MDGlucose [Mass/Vol]73 mg/iZUunhvh59-490Qawkb DiagnosticsComment on above:Result Comment: Non-fasting reference intervalPerformed By: #### 622, 86773 #### [facility] of [address], [address] [place] [address] Chocolate Maker: Bryce Larsen MDPotassium [Moles/Vol]4.7 mmol/LNormal3.5-5.3 [facility]osticsComment on above:Performed By: #### 622, 01173 #### [facility] [place] [address] Chocolate Maker: Bryce Larsen MDProtein [Mass/Vol]6.3 g/dLNormal6.1-8.1[facility] DiagnosticsComment on above:Performed By: #### 622, 88656 #### [facility] of [place] [address] Chocolate Maker: Bryce Larsen MDSodium [Moles/Vol]137 mmol/LEwsqav246-337Cjbhw DiagnosticsComment on above:Performed By: #### 622, 05958 #### [facility] of [place] [address] [place] [address] Chocolate Maker: Bryce Larsen MDUrea nitrogen [Mass/Vol]15 mg/dLNormal7-25 [facility]osticsComment on above:Performed By: #### 622, 58468 #### [facility] [address], [address] [place] [address] Chocolate Maker: Bryce Larsen MDUrea nitrogen/Creatinine [Mass ratio]14 mg/mg Normal6-22Quest DiagnosticsComment on above:Performed By: #### 622, 68605 #### [facility] [address], [address] [place] [address] Chocolate Maker: Bryce Larsen MDMAGNESIUMon 55-29-9558Mycukfmdy [Mass/Vol]1.9 mg/dLNormal1.5-2.5[facility] DiagnosticsComment on above:Order Comment: FASTING:NO FASTING: NOPerformed By: #### 622, 85624 #### [facility] [address], [address] [place] [address] Chocolate Maker: Bryce Larsen [facility] BASIC METABOLIC PANELon 05-54-3307Hgijw gap [Moles/Vol]12 mmol/LNOMS HealthcareCalcium [Mass/Vol]9 mg/dL8.5 - 10.1 mg/dL NOMS HealthcareChloride [Moles/Vol]98 mmol/L98 - 107 mmol/LNOMS HealthcareCO2 [Moles/Vol]29.6 mmol/L21.0 - 32.0 mmol/LNOMS HealthcareCreatinine [Mass/Vol]1.42 mg/dLHigh0.55 - 1.02 mg/dLNOMS HealthcareGFR/1.73 sq M.predicted CKD-EPI (S/P/Bld) [Vol rate/Area]43Low>=60 mL/min/1.73m 2NOMS HealthcareGlucose [Mass/Vol]74 mg/dL74 - 106 mg/dLNOMS HealthcareInterpretation and review of laboratory resultsAbnormalNOMS HealthcarePotassium [Moles/Vol]3.6 mmol/L3.5 - 5.1 mmol/LNOMS HealthcareSodium [Moles/Vol]136 mmol/L136 - 145 mmol/LNOMS HealthcareTBH EGFR-NON AF RCLNFQLZ96Ifh>=60 mL/min/1.73m 2NOMS HealthcareUrea nitrogen [Mass/Vol]36 mg/dLHigh7.0 - 18.0 mg/dLNOMS HealthcareUrea nitrogen/Creatinine [Mass ratio]25.4 mg/mgNOMS HealthcareCLINISYNCNOMS HealthcareXR chest 2V*on 43-60-5513EZ chest 2V*[facility] [address] [place] [address] [place] [address] XRay Report Signed Patient: Luma Ribeiro MR#: [id number] : 1945 Acct:[id number] Age/Sex: 78 / F ADM Date: 04/29/24 Loc: XDUC Room: Type: [facility] Attending [...] R Christopher M.D.04/29/2024 4:00 PM Dictation Location: [place] [address] Transcribed By: [facility] 04/29/24 1600 Dictated By: Jose R Christopher DO 04/29/24 1559 Signed By: 04/29/24 1600[facility] Physician GroupXR CHEST 2 VIEWSon 70-22-0815SF CHEST 2 VIEWSExam: XR CHEST 2 VIEWS Reason for exam: Fell over two weeks [...] electronically signed and approved by the interpreting radiologist.NormalNot AvailableXR HAND 3+ VIEWS RIGHTon 29-80-1931YH HAND 3+ VIEWS RIGHTExam: XR HAND 3+ VIEWS RIGHT Reason for [...] electronically signed and approved by the interpreting radiologist.NormalNot AvailableComment on above:Order Comment: Include hand and wristEMG 1 Extremeityon 63-41-1881VEVF HealthcareNVC 7-8 Nerveson 29-99-0650NZQI HealthcareECG 12-LEADon 43-11-7174[address] [address] Electrocardiograph Report Signed Patient: LUMA RIBEIRO MR#: [id number] : 1945 Acct:[id number] Age/Sex: 77 / F ADM Date: 06/22/23 Loc: LAB Attending Dr: ALEX ALFREDO Ordering Physician: ALEX ALFREDO Date of Service: 06/22/23 Procedure(s): ECG 12 lead Accession Number(s): [id number] cc: [facility] Test Date: 2023-06-22 Pat Name: LUMA RIBEIRO Department: Room: - Gender: Female Process Safety Specialist: : 1945 Requested By: ALEX ALFREDO Order Number: [id number] Reading MD: ELLIS DANIELSON Measurements Intervals [place] Rate: 84 P: 56 AL: 169 QRS: -28 QRSD: 118 T: 18 [...] D.O. Signed By: 06/22/23221806/22/232218 DD/ 23 TD/TT: Elementary Reading Specialist:TBHRadiology, Radiologist, - 06/22/2023 [place] [address] Electrocardiograph Report Signed Patient: LUMA RIBEIRO MR#: [id number] : 1945 Acct:[id number] Age/Sex: 77 / F ADM Date: 06/22/23 Loc: LAB Attending Dr: ALEX ALFREDO Ordering Physician: ALEX ALFREDO Date of Service: 06/22/23 Procedure(s): ECG 12 lead Accession Number(s): [id number] cc: [facility] Test Date: 2023-06-22 Pat Name: LUMA RIBEIRO Department: Room: - Gender: Female Process Safety Specialist: : 1945 Requested By: ALEX ALFREDO Order Number: [id number] Reading MD: ELLIS DANIELSON Measurements Intervals [place] Rate: 84 P: 56 AL: 169 QRS: -28 QRSD: 118 T: 18 [...] D.O. Signed By: 06/22/23221806/22/232218 DD/ 23 TD/TT: Elementary Reading Specialist: FARZANEH HealthcareRadiology Study observation (narrative)[facility] HealthcareEC 12-LEAD Ordered By: Radiologist Radiology on 38-89-9658IUHYTwo Rivers Psychiatric Hospital Work Phone: XR CHEST 2Von 31-68-8085OnvF[place] [address] XRay Report Signed Patient: LUMA RIBEIRO MR#: [id number] : 1945 Acct:[id number] Age/Sex: 77 / F ADM Date: 06/22/23 Loc: LAB Attending Dr: ALEX ALFREDO Ordering Physician: ALEX ALFREDO Date of Service: 06/22/23 Procedure(s): XR chest 2V Accession Number(s): [id number] cc: ROC STEELE ; ALEX ALFREDO [place] [address] Patient Name: LUMA RBIEIRO MRN: [id number] date: 1945 Sex: F Assigned Patient Location: LAB Current Patient Location: LAB Accession/Order Number: [id number] Exam Date: 06/22/2023 14:05 Report Date: 06/22/2023 15:17 At the request of: ALEX ALFREDO Procedure: XR chest 2V PROCEDURE: XR [...] Jose M.D. Signed By: 06/22/23 1519 DD/ 16 TD/TT: Elementary Reading Specialist:LEOadiologashley, Radiologist, - 06/22/2023 [place] [address] XRay Report Signed Patient: LUMA RIBEIRO MR#: [id number] : 1945 Acct:[id number] Age/Sex: 77 / F ADM Date: 06/22/23 Loc: LAB Attending Dr: ALEX ALFREDO Ordering Physician: ALEX ALFREDO Date of Service: 06/22/23 Procedure(s): XR chest 2V Accession Number(s): [id number] cc: ROC STEELE ; ALEX ALFREDO [place] [address] Patient Name: LUMA RIBEIRO MRN: [id number] date: 1945 Sex: F Assigned Patient Location: LAB Current Patient Location: LAB Accession/Order Number: [id number] Exam Date: 06/22/2023 14:05 Report Date: 06/22/2023 15:17 At the request of: ALEX ALFREDO Procedure: XR chest 2V PROCEDURE: XR [...] Signed By: 06/22/23 1519 DD/ 151 TD/TT: Elementary Reading Specialist: FARZANEH PersaudRadiology Study observation (narrative)FARZANEH HealthcareXR CHEST 2V Ordered By: Radiologist Radiology on 97-84-1546UJTQ [employer] Work Phone: Established Visit (Orthopaedic Surgery)on 10-04-2022 Established Visit (Orthopaedic Surgery)Diagnoses/Problems Assessed Shoulder pain (719.41) (M25.519) 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 Distal pulses and sensation are intact. Limited forward flexion to about 25 degrees lateral abduction to about 15 unable to perform any external rotation but internal he can get to the small of her back. Herexam does not allow for much of a true Neer's [place] or [place]'s test. Diagnostics: See dictated report from today, previous outside CT scan report of the humerus reviewed, and is available in the [facility] chart. 1 Procedure: None Assessment: Chronic shoulder [...] the patient's CT scan report reviewed in [facility] chart Other 1 than the anterior medial [...] grammatical areas may persist related to the Xentionon software (more content not included)...NormalUH TouchworksRadiologyon 78-12-4673JT Shoulder 2 ViewsNoCape Fear Valley [facility] For OrthopedicsKettering Health [facility] Work Phone: SHOULDER, CMPLT, MIN 2 VIEWSon 63-31-3340GULKWDUT, CMPLT, MIN 2 VIEWSMRN: [id number] Patient Name: LUMA RIBEIRO STUDY: SHOULDER, CMPLT, MIN 2 VIEWS; Right; 10/04/2022 1:49 pm INDICATION: pain M25.519: Shoulder pain. ACCESSION NUMBER(S): [id number] ORDERING CLINICIAN: TANIYA AL FINDINGS: Multiple views [...] anteromedial dislocation. Electronically signed by: TANIYA AL MDMeadows Psychiatric CenterCT HUMERUS RIGHT W/O CONTRASTon 19-76-9781SO HUMERUS RIGHT W/O CONTRAST History: Possible dislocated [...] and signed by Pernell Wiley on 09/12/2022 1127NoNewark HospitalXR Chest 2 Views*on 68-40-1816UC Chest 2 Views*HISTORY: Recent fall, right rib pain. COMPARISON: None. FINDINGS: The lungs are symmetrically inflated. No focal airspace disease. No pneumothorax or pleural effusion. Heart size is within normal limits. No displaced rib fracture or other acute osseous abnormality. There are degenerative changes in the spine. IMPRESSION: No displaced rib fracture or acute cardiopulmonary abnormality identified. Report reported and signed by Pernell Wiley on 09/12/2022 1101NoNewark HospitalXR CHEST 2 Von 34-62-7559VU CHEST 2 VEXAMINATION: XR CHEST 2 V HISTORY: SHORTNESS OF BREATH COMPARISON: [...] Electronically authenticated by: ISAEL HANSEN Date: 2022-09-05 15:11[facility] CenterXR KUB 1 VIEWon 14-85-3907GS KUB 1 VIEWEXAMINATION: XR KUB 1 VIEW HISTORY: SHORTNESS OF [...] Electronically authenticated by: ISAEL HANSEN Date: 2022-09-05 15:10[facility] Medical CenterAMYLASEon 21-16-6298Rmqgrom [Catalytic activity/Vol]34 U/L Oadbux83-706UjsPremier Health Miami Valley Hospital NorthComment on above:Performed By: #### LIPA, CMP, CMADM, BNP, GRACIELA #### [facility] [address] [place] [address] Dr. Yonny Haddad 46-82-7594Sjpovtyouep peptide B (Bld) [Mass/Vol]241.0 pg/mL Normal<=1,800.0The [facility]. [facility]'S Medical CenterComment on above:Performed By: #### LIPA, CMP, CMADM, BNP, GRACIELA #### [facility] [address] [place] [address] Dr. Yonny Gomez SRINIVASA ADMITon 09-61-0585QZ [Catalytic activity/Vol]154 U/L Wmdcpx74-511Arf St. [facility]'S Medical CenterComment on above:Performed By: #### LIPA, CMP, CMADM, BNP, GRACIELA #### [facility] [address] [place] [address] Dr. Yonny Guillen.MB [Mass/Vol]1.42 ng/mLNormal<=3.60[facility] Comment on above:Performed By: #### LIPA, CMP, CMADM, BNP, GRACIELA #### [facility] [address] [place] [address] Dr. Yonny AmbrosioTROP13.9 pg/mLNormal4.0-51.3The St[facility]'S Medical CenterComment on above:Result Comment: CUT-OFF POINTS HAVE BEEN ESTABLISHED BASED ON THE FOURTH UNIVERSAL DEFINITIONS OF MYOCARDIAL INFARCTION. THE UPPER REFERENCE LIMIT (URL) OF TROPONIN, DEFINED THE 99TH PERCENTILE OF cTnI DISTRIBUTION IN A REFERENCE POPULATION, HAS BEEN CONFIRMED THE DECISION THRESHOLD FOR HI DIAGNOSIS.Performed By: #### LIPA, CMP, CMADM, BNP, GRACIELA #### [facility] [address] [place] [address] Dr. Yonny Slater63 ng/mLNormal9-82The [facility]. [facility]'S Medical CenterComment on above: Performed By: #### LIPA, CMP, CMADM, BNP, GRACIELA #### [facility] [address] [place] [address] Dr. Yonny Block AUTO DIFFon 95-00-3512QRDZ #0.0 103/ulNormal0.0-0.1The [facility] Vegas HospitalComment on above:Performed By: #### LIPA, CMP, CMADM, BNP, GRACIELA #### [facility] [address] [place] [address] Dr. Yonny MezaBasophils/100 WBC (Bld)0.4 %Normal0.2-2.0The [facility] Comment on above:Performed By: #### LIPA, CMP, CMADM, BNP, GRACIELA #### [facility] [address] [place] [address] Dr. Yonny Milner #0.1 103/ulNormal0.0-0.7The St. Mary'S Medical CenterComment on above: Performed By: #### LIPA, CMP, CMADM, BNP, GRACIELA #### [facility] [address] [place] [address] Dr. Yonny Mendozaosinophils/100 WBC (Bld)1.6 %Normal0.9-7.0The [facility] Comment on above:Performed By: #### LIPA, CMP, CMADM, BNP, GRACIELA #### [facility] [address] [place] [address] Dr. Yonny Mendozarythrocyte distribution width (RBC) [Ratio]12.6 %Afnntp29.0-15.[address] [facility]S Medical CenterComment on above:Performed By: #### LIPA, CMP, CMADM, BNP, GRACIELA #### [facility] [address] [place] [address] Dr. Yonny MezaHematocrit (Bld) [Volume fraction]38.9 %Qfhqcc71.0-48.0The St. [facility]'S Medical CenterComment on above:Performed By: #### LIPA, CMP, CMADM, BNP, GRACIELA #### [facility] [address] [place] [address] Dr. Yonny MezaHemoglobin (Bld) [Mass/Vol]13.0 g/iSMdodiw67.0-16.0The [facility]. [facility]'S Medical CenterComment on above:Performed By: #### LIPA, CMP, CMADM, BNP, GRACIELA #### [facility] [address] [place] [address] Dr. Yonny MezaIG #0.02 10e3/ulNormal0.00-0.03The St. [facility]'S Medical CenterComment on above:Performed By: #### LIPA, CMP, CMADM, BNP, GRACIELA #### [facility] [address] [place] [address] Dr. Yonny Lester %0.3 %Normal0.0-0.5The St. [facility]'S Medical CenterComment on above: Performed By: #### LIPA, CMP, CMADM, BNP, GRACIELA #### [facility] [address] [place] [address] Dr. Yonny Concepcion #2.0 103/ulNormal1.2-3.8The [facility]. [facility]S Medical CenterComment on above:Performed By: #### LIPA, CMP, CMADM, BNP, GRACIELA #### [facility] [address] [place] [address] Dr. Yonny Aburtocytes/100 WBC (Bld)25.3 %Gvnzat88.5-60.0The [facility]S Medical CenterComment on above:Performed By: #### LIPA, CMP, CMADM, BNP, GRACIELA #### [facility] [address] [place] [address] Dr. Yonny Scott DIFF REQNONormalThe St. Mary'S Medical CenterComment on above: Performed By: #### LIPA, CMP, CMADM, BNP, GRACIELA #### [facility] [address] [place] [address] Dr. Yonny Castañeda (RBC) [Entitic mass]31.8 dxJqsgxk45.7-34.0The [facility]S Medical CenterComment on above:Performed By: #### LIPA, CMP, CMADM, BNP, GRACIELA #### [facility] [address] [place] [address] Dr. Yonny Castañeda (RBC) [Mass/Vol]33.4 g/pXOmcroi66.9-35.2The [facility]S Medical CenterComment on above:Performed By: #### LIPA, CMP, CMADM, BNP, GRACIELA #### [facility] [address] [place] [address] Dr. Yonny Underwood (RBC) [Entitic vol]95.1 rXSgiiid29.0-99.0The [facility]S Medical CenterComment on above:Performed By: #### LIPA, CMP, CMADM, BNP, GRACIELA #### [facility] [address] [place] [address] Dr. Yonny Martinez #0.9 103/ulCritically high0.3-0.8The [facility] Comment on above:Performed By: #### LIPA, CMP, CMADM, BNP, GRACIELA #### [facility] [address] [place] [address] Dr. Yonny Lamocytes/100 WBC (Bld)11.5 %Normal1.7-12.0[facility] Comment on above:Performed By: #### LIPA, CMP, CMADM, BNP, GRACIELA #### [facility] [address] [place] [address] Dr. Yonny Narayan #4.8 103/ulNormal1.4-6.5The [facility]S Medical CenterComment on above:Performed By: #### LIPA, CMP, CMADM, BNP, GRACIELA #### [facility] [address] [place] [address] Dr. Yonny Leachutrophils/100 WBC (Bld)60.9 %Hhmclh37.0-75.0The [facility]S Medical CenterComment on above:Performed By: #### LIPA, CMP, CMADM, BNP, GRACIELA #### [facility] [address] [place] [address] Dr. Yonny Avilez mean volume (Bld) [Entitic vol]10.1 fLNormal9.5-13.5The [facility]S Medical CenterComment on above:Performed By: #### LIPA, CMP, CMADM, BNP, GRACIELA #### [facility] [address] [place] [address] Dr. Yonny RdzT252 103/dbOmbyoy369-557Yzv St. [facility]'S Medical CenterComment on above: Performed By: #### LIPA, CMP, CMADM, BNP, GRACIELA #### [facility] [address] [address] [address] Yonny MezaRBC4.09 106/ulCritically low4.20-5.40The [facility]. [facility]S Medical CenterComment on above:Performed By: #### LIPA, CMP, CMADM, BNP, GRACIELA #### [facility] [address] [place], [place] [address] Dr. Yonny MezaWBC7.9 103/ulNormal4.0-11.0The [facility]S Medical CenterComment on above: Performed By: #### LIPA, CMP, CMADM, BNP, GRACIELA #### [facility] [address], [place] [address] Dr. Yonny MezaCT ABD/PELVIS WO CONon [id number] ABD/PELVIS WO CONEXAM: CT SCAN OF THE ABDOMEN AND PELVIS [...] Electronically authenticated by: HATTIE [place] Date: 2022-09-03 01:11[facility] URINE PROFILEon [id number] Ql (U)NegativeNormal NEGATIVEPremier Health [facility] Hospital NorthComment on above:Performed By: #### LIPA, CMP, CMADM, BNP, GRACIELA #### [facility] [address] [address] [address] Yonny Tong (U)CLEARNormalCLEARPremier Health [facility] Hospital NorthComment on above: Performed By: #### LIPA, CMP, CMADM, BNP, GRACIELA #### [facility] [address] [address] [address] Yonny Guerrero (U)LT. YELLOWNormalYELLOWPremier Health [facility] Hospital NorthComment on above:Performed By: #### LIPA, CMP, CMADM, BNP, GRACIELA #### [facility] [address] [address] [address] Yonny Rios micrscopic examination will be performed if indicated. NormalThe St. Mary'S Medical CenterComment on above:Performed By: #### LIPA, CMP, CMADM, BNP, GRACIELA #### [facility] [address] [address] [address] Yonny Agarwalose Ql (U)NegativeNormalNEGATIVEPremier Health [facility] NorthComment on above:Performed By: #### LIPA, CMP, CMADM, BNP, GRACIELA #### [facility] [address] [address] [address] Yonny MezaHemoglobin Ql (U)NegativeNormalNEGATIVEPremier Health [facility] Comment on above:Performed By: #### LIPA, CMP, CMADM, BNP, GRACIELA #### [facility] [address] [address] [address] oYnny Aliceaones Ql (U)NegativeNormalNEGATIVEPremier Health [facility] Hospital NorthComment on above:Performed By: #### LIPA, CMP, CMADM, BNP, GRACIELA #### [facility] [address] [place] [address] Dr. Yonny MezaLEUKOCYTESNegativeNormalNEGATIVEPrem[facility] NorthComment on above:Performed By: #### LIPA, CMP, CMADM, BNP, GRACIELA #### [facility] [address] [place] [address] Dr. Yonny Honeycutttrite Ql (U)NegativeNormalNEGATIVEPremier [facility] NorthComment on above:Performed By: #### LIPA, CMP, CMADM, BNP, GRACIELA #### [facility] [address] [place] [address] Dr. Yonny MezapH (U)7.0 [pH]Normal5-9The [facility]S Medical CenterComment on above: Performed By: #### LIPA, CMP, CMADM, BNP, GRACIELA #### [facility] [address] [place] [address] Dr. Yonny MezaSPEC GRAVITY1.870Ntgijy1.005-<=1.025[facility] NorthComment on above:Performed By: #### LIPA, CMP, CMADM, BNP, GRACIELA #### [facility] [address] [place] [address] Dr. Yonny MezaUA PROTEINNegativeNormalNEGATIVE/ TRACEPremier Health [facility] Comment on above:Performed By: #### LIPA, CMP, CMADM, BNP, GRACIELA #### [facility] [address] [place] [address] Dr. Yonny GARCES INDNOT INDICATEDNormalThe St. [facility]'S Medical CenterComment on above:Performed By: #### LIPA, CMP, CMADM, BNP, GRACIELA #### [facility] [address] [address] [address] Yonny Monkbilino Qn (U)0.2 {Arnaud'U}/dLNormal0.2 - 1.0The [facility]S Medical CenterComment on above:Performed By: #### LIPA, CMP, CMADM, BNP, GRACIELA #### [facility] [address] [address] [address] Yonny LopezCTATE/LACTIC ACIDon [id number] [Moles/Vol]2.3 mmol/L Critically high0.4-2.0The [facility] on above:Performed By: #### LACT #### [facility] [address] [place] [address] Dr. Yonny MezaLactate [Moles/Vol]2.2 mmol/LCritically high0.4-2.0The [facility] on above:Performed By: #### LIPA, CMP, CMADM, BNP, GRACIELA #### [facility] [address] [place] [address] Dr. Yonny MezaLIPASEon [id number] [Catalytic activity/Vol]88.0 U/LNormal 73.0-393.0The [facility] on above:Performed By: #### LIPA, CMP, CMADM, BNP, GRACIELA #### [facility] [address] [place] [address] Dr. Yonny MezaPROF 14(COMP METB)on [id number] [Mass/Vol]3.3 g/dL Critically low3.4-5.0The [facility] on above:Performed By: #### LIPA, CMP, CMADM, BNP, GRACIELA #### [facility] [address] [place] [address] Dr. Yonny MezaAlbumin/Globulin [Mass ratio]0.9 {ratio}NormalThe Nya HospitalComment on above:Performed By: #### LIPA, CMP, CMADM, BNP, GRACIELA #### [facility] [address] [place] [address] Dr. Yonny Benítez [Catalytic activity/Vol]122 U/LCritically cegx33-165Zjm St[facility]S Medical CenterComment on above:Performed By: #### LIPA, CMP, CMADM, BNP, GRACIELA #### [facility] [address] [place] [address] Dr. Yonny [place] [Catalytic activity/Vol]21 U/GVowcuq70-25Nyy St[facility]S Medical CenterComment on above:Performed By: #### LIPA, CMP, CMADM, BNP, GRACIELA #### [facility] [address] [place] [address] Dr. Yonny Robinson gap [Moles/Vol]12.4 mmol/LNormalPrem[facility] Comment on above:Performed By: #### LIPA, CMP, CMADM, BNP, GRACIELA #### [facility] [address] [place] [address] Dr. Yonny Chu [Catalytic activity/Vol]24 U/EAdxgss75-31Xby St. [facility]S Medical CenterComment on above:Performed By: #### LIPA, CMP, CMADM, BNP, GRACIELA #### [facility] [address] [place] [address] Dr. Yonny MezaBilirubin [Mass/Vol]0.4 mg/dLNormal0.2-1.0The [facility] Comment on above:Performed By: #### LIPA, CMP, CMADM, BNP, GRACIELA #### [facility] [address] [place] [address] Dr. Yonny MezaCalcium [Mass/Vol]8.7 mg/dLNormal8.5-10.1[facility] Comment on above:Performed By: #### LIPA, CMP, CMADM, BNP, GRACIELA #### [facility] [address] [place] [address] Dr. Yonny MezaChloride [Moles/Vol]105 mmol/BAvfdfu21-197Lqf [facility] Comment on above:Performed By: #### LIPA, CMP, CMADM, BNP, GRACIELA #### [facility] [address] [address] [address] Yonny MezaCO2 [Moles/Vol]28.0 mmol/LHgpvji46.0-32.0The [facility] Comment on above:Performed By: #### LIPA, CMP, CMADM, BNP, GRACIELA #### [facility] [address] [place] [address] Dr. Yonny MezaCreatinine [Mass/Vol]1.11 mg/dLCritically high0.55-1.02The [facility] Medical CenterComment on above:Performed By: #### LIPA, CMP, CMADM, BNP, GRACIELA #### [facility] [address] [place] [address] Dr. Blancas ChangEGFR-AF GGZXQNZS02 mL/min/1.56k2Leozuzpylf low>=60The [facility]S Medical CenterComment on above:Performed By: #### LIPA, CMP, CMADM, BNP, GRACIELA #### [facility] [address] [place] [address] Dr. Yonny MendozaGFR-NON AF TXMNIXGX97 mL/min/1.36h4Iserevreni low>=60The [facility] Medical CenterComment on above:Performed By: #### LIPA, CMP, CMADM, BNP, GRACIELA #### [facility] [address] [place] [address] Dr. Yonny MezaGlobulin (S) [Mass/Vol]3.7 g/dLNormalThe St. [facility]'S Medical CenterComment on above:Performed By: #### LIPA, CMP, CMADM, BNP, GRACIELA #### [facility] [address] [place] [address] Dr. Yonny MezaGlucose [Mass/Vol]152 mg/dLCritically klxj16-794Lri [facility] CenterComment on above:Performed By: #### LIPA, CMP, CMADM, BNP, GRACIELA #### [facility] [address] [place] [address] Dr. Yonny MezaPotassium [Moles/Vol]3.4 mmol/LCritically low3.5-5.1The [facility] Medical CenterComment on above:Performed By: #### LIPA, CMP, CMADM, BNP, GRACIELA #### [facility] [address] [place] [address] Dr. Yonny MezaProtein [Mass/Vol]7.0 g/dLNormal6.4-8.2The [facility] Comment on above:Performed By: #### LIPA, CMP, CMADM, BNP, GRACIELA #### [facility] [address] [place] [address] Dr. Yonny MezaSodium [Moles/Vol]142 mmol/ZXpkovj658-064Vbk [facility] Comment on above:Performed By: #### LIPA, CMP, CMADM, BNP, GRACIELA #### [facility] [address] [place] [address] Dr. Yonny MezaUrea nitrogen [Mass/Vol]14.0 mg/dLNormal7.0-18.0The [facility] CenterComment on above:Performed By: #### LIPA, CMP, CMADM, BNP, GRACIELA #### [facility] [address] [place] [address] Dr. Yonny Villatoro nitrogen/Creatinine [Mass ratio]12.6 mg/mgNoAkron Children's HospitalComment on above:Performed By: #### LIPA, CMP, CMADM, BNP, GRACIELA #### [facility] [address] [place] [address] Dr. Yonny MezaPROTIMEon [id number] Coag (PPP) [Relative time]1.05 {INR} NormalPremier Health [facility] Hospital NorthComment on above:Performed By: #### LIPA, CMP, CMADM, BNP, GRACIELA #### [facility] [address] [place] [address] Dr. Yonny Pena GUIDELINESSEE BELOWCincinnati Children's Hospital Medical CenterComment on above:Result Comment: DESIRED INR: 2.0 - 3.0 CONDITIONS NOT LISTED BELOW 2.5 - 3.5 FOR PROSTHETIC HEART VALVE REPLACEMENT 2.5 - 3.5 RECURRENT THROMBOSIS Performed By: #### LIPA, CMP, CMADM, BNP, GRACIELA #### [facility] [address], [place] [address] Dr. Yonny MezaPT Coag (PPP) [Time]11.1 sNormal9.0-11.6The [facility] Comment on above:Performed By: #### LIPA, CMP, CMADM, BNP, GRACIELA #### [facility] [address], [place] [address] Dr. Yonny MezaPTBanner Payson Medical Center [id number] Coag (Bld) [Time]26.7 bLwzjqo22.3-36.2[facility] NorthComment on above:Performed By: #### LIPA, CMP, CMADM, BNP, GRACIELA #### [facility] [address], [place] [address] Dr. Yonny MezaXR CHEST 1 Von [id number] CHEST 1 VCHEST X-RAY HISTORY: Chest pain COMPARISON: CT shoulder [...] Electronically authenticated by: HATTIE [place] Date: 2022-09-03 00:08NoAkron Children's HospitalMG MAMM SCREEN 3D RON CADon [id number] MAMM SCREEN 3D RON CAD Patient: LUMA RIBEIRO Exam Date: 06/06/2022 : 1945 Gender:F Ordering : DR ROC STEELE M.D. Admission #: [id number] Family : Order #: [id number] CLICK HERE TO VIEW EXAM RADIOLOGY REPORT [...] cancer at age 61. LOCATION: [facility] BREAST COMPOSITION: Scattered areas fibroglandular [...] by: Lisa Frederick MD on 06/07/2022 at 08:09[facility] Medical CenterNo Panel Informationon [id number] click on the link to view the study images [facility] Work Phone: Radiologyon [id number] Pelvis and Hip - left 2 Views [facility] Work Phone: MRI Humerus w/wo Contraston [id number] Humerus w/wo ContrastNoCape Fear [facility] Work Phone: Otheron [id number] by: TASIA ALARCON 15:34MRN: [id number] Name: LUMA RIBEIRO STUDY:HIP, UNILATERAL W/PELVIS WHEN PERFORMED 2-3 VIEWS; Right;02/13/2020 1:58 pm INDICATION:pain. 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 No acute bony abnormality orperiprostheticfracture appreciated. Electronically signed by: TASIA BIRD 02/13/20 15:34NoSouth[facility] [place] Work Phone: Complete Blood Count + Differentialon 10-01-2020 Basophils (Bld) [#/Vol]0.04 {x10E9/L}See [facility] [place] Work Phone: [phone] on above:Reference Range: 0.00 - 0.10 Basophils/100 WBC (Bld)0.2 %0.0 - 2.0[facility] Work Phone: [phone] (Bld) [#/Vol]0.01 {x10E9/L}See [facility] [place] Work Phone: [phone] on above:Reference Range: 0.00 - 0.40 Eosinophils/100 WBC (Bld)0.1 %0.0 - 6.0[facility] Work Phone: [phone] distribution width (RBC) [Ratio]13.1 %See [facility] Work Phone: [phone] on above:Reference Range: 11.5 - 14.5 Hematocrit (Bld) [Volume fraction]34.8 %below low thresholdSee [facility] For [facility] Work Phone: [phone] on above:Reference Range: 36.0 - 46.0 Hemoglobin (Bld) [Mass/Vol]11.3 g/dLbelow low thresholdSee [facility] Work Phone: [phone] on above:Reference Range: 12.0 - 16.0 Lymphocytes (Bld) [#/Vol]2.21 {x10E9/L}See [facility] For [facility] [place] Work Phone: [phone] on above:Reference Range: 0.80 - 3.00 Lymphocytes/100 WBC (Bld)12.5 %See [facility] For [facility] [place] Work Phone: [phone] on above:Reference Range: 13.0 - 44.0MCHC (RBC) [Mass/Vol]32.5 g/dLSee [facility] L[facility]kinJeff [employer] Work Phone: [phone] on above:Reference Range: 32.0 - 36.0MCV (RBC) [Entitic vol]99 fL80 - 100MP-[place] [facility] [place] Work Phone: [phone] (Bld) [#/Vol]1.82 {x10E9/L}above high thresholdSee [facility] [place] Work Phone: [phone] on above:Reference Range: 0.05 - 0.80 Monocytes/100 WBC (Bld)10.3 %2.0 - 10.0MP-[facility] [employer] Work Phone: Neutrophils/100 WBC (Bld)76.3 %See Below-[place] [facility] [place] Work Phone: Comment on above:Reference Range: 40.0 - 80.0Platelets (Bld) [#/Vol]234 {x10E9/L}150 - 450MP-[place] [facility] [employer] Work Phone: RBC (Bld) [#/Vol]3.52 {x10E12/L}below low thresholdSee [facility]-[place] [facility] [place] Work Phone: Comment on above:Reference Range: 4.00 - 5.20WBC (Bld) [#/Vol]17.7 {x10E9/L}above high threshold4.4 - 11.3MP-[facility] [employer] Work Phone: Complete Blood Count + Differential0.6 %0.0 - 0.9MP- [place] [facility] [employer] Work Phone: Comment on above:Immature Granulocyte Count (IG) includes promyelocytes, myelocytes and metamyelocytes but does not include bands. Percent differential counts (%) should be interpreted in the context of the absolute cell counts (cells/L).Complete Blood Count + Oqorwrcegwwx53.52 {x10E9/L}above high thresholdSee Below-[facility] Work Phone: [phone] on above:Reference Range: 1.60 - 5.50Metabolic Panelon 32-13-0950Jzqho gap [Moles/Vol]8 mmol/Lbelow low zagiwobrp56 - 20MP- [facility] Work Phone: [phone] [Mass/Vol]8.8 mg/dL8.6 - 10.3MP-[facility] [place] Work Phone: Chloride [Moles/Vol]101 mmol/L98 - 107MP-[facility] Work Phone: [phone] [Moles/Vol]32 mmol/L21 - 32MP-[facility] [place] Work Phone: Creatinine [Mass/Vol]1.00 mg/dLSee Below-[facility] Work Phone: [phone] on above:Reference Range: 0.50 - 1.05Glucose [Mass/Vol]128 mg/dLabove high toulasxcw78 - 99MP-[facility] [place] Work Phone: Potassium [Moles/Vol]4.2 mmol/L3.5 - 5.3MP-[facility] [place] Work Phone: Sodium [Moles/Vol]137 mmol/L136 - 145MP-[facility] Work Phone: Urea nitrogen [Mass/Vol]14 mg/dL6 - 23MP-[facility] Work Phone: [phone] {mL/min/1.73m2}>60MP-[facility] Work Phone: [phone] on above:CALCULATIONS OF ESTIMATED GFR ARE PERFORMED USING THE MDRD STUDY EQUATION FOR THE IDMS-TRACEABLE CREATININE METHODS. CLIN CHEM 2007;53:766-7254 {mL/min/1.73m2}Abnormal>60MP-[facility] Work Phone: Otheron [id number] by: PNILUM11/01/20 15:21MRN: [id number] Name: LUMA RIBEIRO STUDY:HIP, UNILATERALW/PELVIS WHEN PERFORMED 2-3 VIEWS; 01/29/2020 12:25 pm INDICATION:s/p right ROSSANA. COMPARISON:01/16/2020 ORDERING CLINICIAN:TASIA BIRD FINDINGS:Pelvis and right hip, threeviews Interval right total hip arthroplasty noted without periprostheticfracture or lucency. There is no dislocation. IMPRESSION:Right total hip arthroplasty without immediate complicationsElectronically signed by: RAJIV 01/30/20 15:21No[facility] Work Phone: XR Pelvis 1 or 2 viewsPlease click on the link to view the study imagesNoMethodist South[facility] Hospital Work Phone: Coronavirus 2019 RNA by PCR, Screening Asymptomticon [id number] 2019 RNA by PCR, Screening AsymptomticNOT DETECTEDSee [facility] [place] Work Phone: Comment on above:SOURCE: Nasal, NasopharyngealReference Range: Not DetectedThis assay is designed to [...] make patient management decisions.Fact sheet for providers: https://www.fda.gov/media/950237/downloadFact sheet for patients: https://www.fda.gov/media/100674/downloadThis test has received FDA Emergency Use Authorization (EUA) and has been verified by [facility] ([facility]). This test is only authorized for the duration oftime that circumstances exist to justify the authorization of the emergency use of in vitro diagnostic tests for the detection of SARS-CoV-2 virus and/or diagnosis of COVID-19 infection under ewclcxu068(b)(1) of the Act, 21 U.S.C. 360bbb- 3(b)(1), unless the authorization is terminated or revoked sooner. [facility] is certified under CLIA-88 as qualified to perform high complexity testing. Testing is performed in the [facility] laboratories located at [address] [place] [address].Activated Partial Thromboplastin Timeon [id number] Coag (PPP) [Time]29 {sec}25 - 35MP-[facility] Work Phone: Comment on above:THE APTT IS NO LONGER USED FOR MONITORING UNFRACTIONATED HEPARIN THERAPY. FOR MONITORING HEPARIN THERAPY, USE THE HEPARIN ASSAY.Complete Blood Count + Differentialon [id number] (Bld) [#/Vol]0.04 {x10E9/L}See [facility]IN[facility] [place] Work Phone: Comment on above:Reference Range: 0.00 - 0.10 Basophils/100 WBC (Bld)0.5 %0.0 - 2.0MP-[facility] Work Phone: [phone] (Bld) [#/Vol]0.09 {x10E9/L}See Below- [facility] Work Phone: [phone] on above:Reference Range: 0.00 - 0.40 Eosinophils/100 WBC (Bld)1.0 %0.0 - 6.0MP-[facility] Work Phone: [phone] distribution width (RBC) [Ratio]12.9 %See BelowINTEGR[facility] [place] Work Phone: [phone] on above:Reference Range: 11.5 - 14.5 Hematocrit (Bld) [Volume fraction]44.6 %See [facility] [place] Work Phone: Comment on above:Reference Range: 36.0 - 46.0 Hemoglobin (Bld) [Mass/Vol]14.5 g/dLSee [facility] Work Phone: [phone] on above:Reference Range: 12.0 - 16.0 Lymphocytes (Bld) [#/Vol]3.41 {x10E9/L}above high thresholdSee [facility] Work Phone: [phone] on above:Reference Range: 0.80 - 3.00 Lymphocytes/100 WBC (Bld)38.4 %See [facility] [place] Work Phone: Comment on above:Reference Range: 13.0 - 44.0MCHC (RBC) [Mass/Vol]32.5 g/dLSee [facility] [place] Work Phone: Comment on above:Reference Range: 32.0 - 36.0MCV (RBC) [Entitic vol]100 fL80 - 100[facility] [place] Work Phone: Monocytes (Bld) [#/Vol]0.81 {x10E9/L}above high thresholdSee [facility] Work Phone: [phone] on above:Reference Range: 0.05 - 0.80 Monocytes/100 WBC (Bld)9.1 %2.0 - 10.0[facility] Work Phone: Neutrophils (Bld) [#/Vol]4.49 {x10E9/L}See [facility] Work Phone: [phone] on above:Reference Range: 1.60 - 5.50 Neutrophils/100 WBC (Bld)50.7 %See BelowMP-[facility]: [phone] on above:Reference Range: 40.0 - 80.0Platelets (Bld) [#/Vol]261 {x10E9/L}150 - 450MP-[place] [facility] [place] Work Phone: RBC (Bld) [#/Vol]4.48 {x10E12/L}See Below-[facility] Work Phone: Comment on above:Reference Range: 4.00 - 5.20WBC (Bld) [#/Vol]8.9 {x10E9/L}4.4 - 11.3MP-[facility] Work Phone: Complete Blood Count + Differential0.3 %0.0 - 0.9- [facility] Work Phone: [phone] on above:Immature Granulocyte Count (IG) includes promyelocytes, myelocytes and metamyelocytes but does not include bands. Percent differential counts (%) should be interpreted in the context of the absolute cell counts (cells/L).Fructosamine, Serumon 68-58-4799Kylnyaqrfpwd [Moles/Vol]265 umol/U0-425PT[facility] [place] Work [place]: Comment on above:Published reference interval for apparently healthy subjectsbetween age 20 and 60 is 205 - 285 umol/L and in a poorlycontrolled diabetic population is 228 - 563 umol/L with amean of 396 umol/L.Hematologyon 55-12-5685GBM Coag (PPP) [Relative time]1.1 {INR}0.9 - 1.1 -[facility] Work Phone: PT Coag (PPP) [Time]13.0 {sec}See Below-[facility] Work Phone: [phone] on above:Reference Range: 10.1 - 13.3Metabolic Panelon 23-26-5574XKE [Catalytic activity/Vol]100 U/L33 - 136MP-[facility] Work Phone: Anion gap [Moles/Vol]13 mmol/L10 - 20MP-[facility] Work Phone: Bilirubin [Mass/Vol]0.6 mg/dL0.0 - 1.2MP-[facility] Work Phone: Calcium [Mass/Vol]9.7 mg/dL8.6 - 10.3MP-[facility] Work Phone: Chloride [Moles/Vol]101 mmol/L98 - 107MP-[facility] Work Phone: LO2 [Moles/Vol]32 mmol/L21 - 32MP-[facility] Work Phone: Creatinine [Mass/Vol]1.01 mg/dLSee BelowMP-[facility] Work Phone: Comment on above:Reference Range: 0.50 - 1.05Glucose [Mass/Vol]88 mg/dL74 - 99MP-[facility] Work Phone: Potassium [Moles/Vol]3.9 mmol/L3.5 - 5.3MP-[facility] Work Phone: Protein [Mass/Vol]7.6 g/dL6.4 - 8.2MP-[facility] Work Phone: Sodium [Moles/Vol]142 mmol/L136 - 145MP-[facility] Work Phone: Urea nitrogen [Mass/Vol]15 mg/dL6 - 23MP-[facility] Work Phone: Otheron [phone] 1MP-[facility] [place] Work Phone: [phone] [facility] [facility] Work Phone: [phone] [facility] [facility] Work Phone: [phone] [facility] [facility] Work Phone: [phone] [facility] [facility] Work Phone: [phone] [facility] [facility] Work Phone: Sinus rhythm with occasional premature ventricular complexes-[place] [facility] Work Phone: [phone] [facility] [facility] Work Phone: [email or web address]?RetrieveTestByDateTime?Patien aVU=[id number]&Da te=20-01-2020&Time=14%3a54%3a12%3a00&TestType=ECG&Site=11&OutputType=PDF&Ext=PDF -[facility] Work Phone: [phone] [facility] [facility] [address] [place] [address] [facility] Work Phone: [phone] [facility] [facility] Work Phone: [phone] [facility] [facility] Work Phone: [phone] [address] [place] [address] [facility] Work Phone: [phone] [facility] [facility] Work Phone: Albumin BCP dye [Mass/Vol]4.4 g/dL3.4 - 5.0-[facility] Work Phone: ALT With P-5'-P [Catalytic activity/Vol]16 U/L7 - 45 -[place] [facility] Work Phone: Comment on above:Patients treated with Sulfasalazine may generate falsely decreased results for ALT.AST With P-5'-P [Catalytic activity/Vol]23 U/L9 - 39MP-[place] [facility] Work Phone: [phone] {mL/min/1.73m2}>60MP-[facility] Work Phone: [phone] on above:CALCULATIONS OF ESTIMATED GFR ARE PERFORMED USING THE MDRD STUDY EQUATION FOR THE IDMS-TRACEABLE CREATININE METHODS. CLIN CHEM 2007;53:766-7254 {mL/min/1.73m2}Abnormal>60MP-[facility] [employer] Work Phone: [phone] 31-39-3482Bznhpqahgz (U)HAZYCLEARM- [facility] Work Phone: Color (U)YELLOWSee [facility] [employer] Work Phone: [phone] on above:Reference Range: STRAW,YELLOWGlucose Ql (U)NegativeNEGATIVERussell Medical Center OrthopedicsK[facility] Work Phone: Ketones Ql (U)NegativeNEGCENTINELA FREEM[facility] [place]: Leukocyte esterase Test strip Ql (U)NegativeNEGATIVE -[facility] Work Phone: pH (U)7.0 [pH]5.0 - 8.0-[place] [facility] [employer] Work Phone: Protein (U) [Mass/Vol]NegativeNEGMercy Regional Medical Center [facility] [employer] Work Phone: RBC (U) [#/Vol]NegativeNEGCENTINELA FREEMAN [facility] Work Phone: Specific gravity (U) [Rel density]1.019See BelowJim Taliafer[facility] [place] Work Phone: Comment on above:Reference Range: 1.005 - 1.035 UrinalysisNegativeNEGATIVEINTEGRIS [facility] [place] Work Phone: [phone] mg/dLabove high threshold0.0 - 1.9- [facility] Work Phone: Comment on above:Due to a manufacturing issue, low positive urobilinogen results may be falsely positive. Correlate with urine bilirubin and additional clinical/laboratory findings to assess the risk of hemolytic anemia or liver disease. If clinically indicated, repeat testing with an alternate method is available by contacting the laboratory within 24 hours..Some pigments and medications may cause a false positive urobilinogen. Otheron 12-20-5443Hekmetewdak by: HARSHAL ALVARADO01/16/20 13:42MRN: [id number] Name: LUMA RIBEIRO STUDY:HIP, UNILATERAL W/PELVIS WHEN PERFORMED 2-3 VIEWS; Right; 01/16/20201:39 pm INDICATION:pain. ORDERING CLINICIAN:HARSHAL ALVARADO FINDINGS:AP lateral right hip x-ray shows end-stage nregfdmvwfrssndeiy-bc-ahud arthrosis noted. 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 Electronically signed by: HARSHAL ALVARADO 01/16/20 13:42NormalINTEGRIS [facility] [place] Work Phone: Vital Signs Date TimeVital SignValuePerforming DfyxxdakqJxnpypmd69-29-3719 15:00-0400 Diastolic blood kcwlaztg27 mm[Hg]Amber Hawley MD Work Phone: [facility]07-18-2025 15:00-0400 Systolic blood mm[Hg]Amber Hawley MD Work Phone: [facility]07-18-2025 14:11-0400 Body omnjes824.6 cmAmber Hawley MD Work Phone: [facility]07-18-2025 14:11-0400 Body mass index (BMI) [Ratio]44.97 kg/k4SbhhcmAmber Hawley MD Work Phone: [facility]07-18-2025 14:11-0400 Body deoffq061.84 kgAmber Hawley MD Work Phone: [facility]07-18-2025 14:11-0400 Heart rate72 /minAmber Hawley MD Work Phone: [facility]06-18-2025 11:33-0400 Body ajdbkq155.5 Feliberto Pride [employer] Work Phone: [facility] HospitalFrztwiavpk26-33-4417 11:33-0400Body mass index (BMI) [Ratio]48.47 kg/h6QzydknKamila Pride [employer] Work Phone: [facility] HospitalFikzorubeg61-55-5162 11:33-0400Body qwlrin585.2 kgKamila Pride [employer] Work Phone: [facility] HospitalRdxmlehllq60-05-5742 11:33-0400Diastolic blood umroegvf722 mm[Hg]Kamila Pride [employer] Work Phone: [facility] HospitalEfgvhcvaum90-06-1235 11:33-0400Heart rate77 /min Kamila Pride [employer] Work Phone: [facility] HospitalWyhjvnzbgm24-58-1752 11:33-0400Respiratory rate17 /minSlola Pride [employer] Work Phone: [facility] HospitalBolstubtzv94-53-2290 11:33-2929PkJ8% (BldA) [Mass fraction]96 %Kamila Pride [employer] Work Phone: [facility] CenterHlmwvbytkq92-88-4226 11:33-0400Systolic blood riqrrirt952 mm[Hg]Kamila Pride [employer] Work Phone: [facility] CenterDqtmowcicj69-00-8082 15:03-0400Body jkepwn459.5 Annia Alfredo DPM Work Phone: [facility] HospitalAvrodmtwrz22-65-8446 15:03-0400Body mass index (BMI) [Ratio]49.02 kg/n9ZtccubgrAlex Alfredo DPM Work Phone: [facility] HospitalUegewijkrr20-55-7384 15:03-0400Body byfvac291.56 kgLyricjeffery Alfredo DPM Work Phone: [facility] HospitalBwwjimkqgf76-05-4810 15:03-0400Respiratory rate18 /minLyricjeffery Alfredo DPM Work Phone: [facility] HospitalCnzhqysjpc52-14-0346 11:00-0400Body rdzsdo914.[address] [place], [place] [address]05-21-2025 11:00-0400Body mass index (BMI) [Ratio]46.17 kg/m[address]05-21-2025 11:00-0400Body gwmueu856.[address]05-21-2025 11:00-0400Diastolic blood mm[Hg][address]05-21-2025 11:00-0400Systolic blood oaurbafp034 mm[Hg][address]05-21-2025 10:44-0400Diastolic blood mm[Hg][address]05-21-2025 10:44-0400Heart rate67 /minEly [address] [place], [place] 6448305-21-2025 10:44-0400Systolic blood omdietlg850 mm[Hg][address]04-21-2025 11:24-0400Body height 157.5 cmRoc Steele MD Work Phone: [facility] HospitalXfknwnbmqt61-95-7918 11:24-0400Body mass index (BMI) [Ratio]49.02 kg/c4ApmwmbRoc Steele MD Work Phone: [facility] HospitalNnygtxrsqv23-57-6505 11:24-0400Body roimjl930.56 kgRoc Steele MD Work Phone: [facility] HospitalDsimkflfzf65-69-1141 11:24-0400Diastolic blood gjkeyiil38 mm[Hg]Roc Steele MD Work Phone: [facility] HospitalAwlxngpuku97-95-0093 11:24-0400Heart rate89 /min Roc Steele MD Work Phone: [facility] HospitalFltfgszkse71-30-6439 11:24-7521SpO2% (BldA) [Mass fraction]96 %Roc Steele MD Work Phone: [facility] HospitalIrvsrqvrlp66-98-1258 11:24-0400Systolic blood vlqiyoiw252 mm[Hg]Roc Steele MD Work Phone: [facility] HospitalKarjnhbfdv28-18-6898 14:45-0400Body tjqiao894.5 cmLyricjeffery Alfredo DPM Work Phone: [facility] HospitalRwgzdxnnbb99-25-2243 14:45-0400Body mass index (BMI) [Ratio]48.65 kg/t3Ufyswvee Yonatan DPM Work Phone: [facility] HospitalRbkoomqqlk20-49-4244 14:45-0400Body .66 kgLyricjeffery Alfredo DPM Work Phone: [facility] HospitalStxbljotdq97-95-4653 14:45-0400Respiratory rate16 /minAlex Yonatan DPM Work Phone: [facility] HospitalEmabrnnptk95-44-8729 13:31-0400Body sdytlg593.5 cmSlola Pride [employer] Work Phone: [facility] HospitalOigjqjtifc46-69-5784 13:31-0400Body mass index (BMI) [Ratio]48.73 kg/r3XgvgctKamila Espitiavely [employer] Work Phone: [facility] CenterCnigjszdji54-98-7101 13:31-0400Body ywomiw824.84 kgSherri Desloge [employer] Work Phone: [facility] CenterGspvlnxdvo59-87-7585 13:31-0400Diastolic blood atnnhmqx99 mm[Hg]Kamila Pride [employer] Work Phone: [facility] CenterTjruaehlta09-14-3384 13:31-0400Heart rate88 /min Kamila Pride [employer] Work Phone: [facility] HospitalDubeswwnxa61-28-9871 13:31-0400Respiratory rate17 /minSlola Pride [employer] Work Phone: [phone] [place], [place] [address]Zkjhturctx75-41-1499 13:31-0456NyU4% (BldA) [Mass fraction]99 %Kamila Pride [employer] Work Phone: [phone] [place], [place] [address]Hgkdspqlrg69-03-1665 13:31-0400Systolic blood mm[Hg]Kamila Pride [employer] Work Phone: [phone] [place], [place] [address]Gfdteoawxq29-59-6295 11:25-0400Body cpwybh140.6 cmAmber Hawley MD Work Phone: [phone]03-17-2025 11:25-0400 Body mass index (BMI) [Ratio]46.17 kg/e7CkospfAmber Hawley MD Work Phone: [phone]03-17-2025 11:25-0400 Body gfvahu528.02 kgAmber Hawley MD Work Phone: [phone]03-17-2025 11:25-0400 Diastolic blood wgfjelal55 mm[Hg]Amber Hawley MD Work Phone: [phone]03-17-2025 11:25-0400 Heart rate93 /minAmber Hawley MD Work Phone: [phone]03-17-2025 11:25-0400 Systolic blood iieqdngo263 mm[Hg]Amber Hawley MD Work Phone: [phone]03-13-2025 12:59-0400 Body kjxvaj558.5 cmSlola Pride [employer] Work Phone: [phone] [place], [place] [address]Gnbldwqlza65-35-3005 12:59-0400Body mass index (BMI) [Ratio]49.93 kg/m3QzvdtcKamila Pride [employer] Work Phone: [phone] [place], [place] [address]Dlzkryrkbv80-34-3268 12:59-0400Body .83 kgKamila Pride [employer] Work Phone: [facility] CenterTldxbucpxs32-18-3097 12:59-0400Diastolic blood hwtvydqk33 mm[Hg]Kamila Pride [employer] Work Phone: [facility] CenterIqdzffvzlu92-53-3243 12:59-0400Heart rate87 /min Kamila Pride [employer] Work Phone: [facility] CenterBbcngruocj83-81-0888 12:59-6534XhB1% (BldA) [Mass fraction]97 %Kamila Pride [employer] Work Phone: [facility] CenterJgglpperzz57-13-9086 12:59-0400Systolic blood kyofflpm139 mm[Hg]Kamila Desloge [employer] Work Phone: [facility] CenterFxjaabztre27-40-0388 11:31-0500Body cdraqa020.5 cmSolivia Pride [employer] Work Phone: [facility] CenterQzyfrhgraf36-74-7021 11:31-0500Body mass index (BMI) [Ratio]50.22 kg/x6Abbknisharona Pride [employer] Work Phone: [facility] CenterEygsfqpltp06-05-1895 11:31-0500Body .56 kgKamila Pride [employer] Work Phone: [facility] CenterJaaykgcsss42-51-3427 11:31-0500Diastolic blood aspgzmhy16 mm[Hg]Kamila Pride [employer] Work Phone: [facility] CenterOpyggdbqhu74-51-7622 11:31-0500Heart rate74 /min Kamila Desloge [employer] Work Phone: [facility] CenterUipscmsmjt01-82-2264 11:31-0500Respiratory rate17 /minSolivia Pride [employer] Work Phone: [facility] CenterYpqjixwbjk27-35-0377 11:31-3568FdG3% (BldA) [Mass fraction]94 %Kamila Pride [employer] Work Phone: [facility] CenterJnxkmlomkl84-48-8340 11:31-0500Systolic blood pbyyqkgs322 mm[Hg]Kamila Espitiavely [employer] Work Phone: [facility] HospitalZhqmtrjzwm21-26-7697 11:07-0500Body .5 Feliberto Pride [employer] Work Phone: [facility] CenterIplzmluswo21-94-8844 11:07-0500Body mass index (BMI) [Ratio]49.2 kg/x2QusgxxKamila Espitiavely [employer] Work Phone: [facility] CenterFudopfslwi93-50-6638 11:07-0500Body kzorea800.02 kgKamila Espitiavely [employer] Work Phone: [facility] HospitalCknkvveszw33-57-9331 11:07-0500Diastolic blood zgwbyjks02 mm[Hg]Kamila Pride [employer] Work Phone: [facility] HospitalXlvrwognrd33-99-9566 11:07-0500Heart rate76 /min Kamila Pride [employer] Work Phone: [facility] HospitalMbwucsjptc77-25-8134 11:07-0500Respiratory rate17 /minSlola Pride [employer] Work Phone: [facility] HospitalQciydvbuqx55-31-9061 11:07-1513CtX7% (BldA) [Mass fraction]99 %Kamila Pride [employer] Work Phone: [facility] HospitalYfqxhikcfe03-36-4868 11:07-0500Systolic blood oshxtbvw767 mm[Hg]Kamila Pride [employer] Work Phone: [facility] HospitalWbkobtcdxr69-06-3741 14:37-0500Body .5 cmNicholas Brown DPM Work Phone: [facility] HospitalHhyoupbcvj45-73-6076 14:37-0500Body mass index (BMI) [Ratio]50.3 kg/g6Mgvxlgaz Brown DPM Work Phone: [facility] HospitalArodokrqpv49-77-0310 14:37-0500Body .74 kgNicholas Brown DPM Work Phone: [facility] HospitalUiahgtyyjy90-14-5469 14:37-0500Respiratory rate18 /minAlex Brown DPM Work Phone: [facility] HospitalWmnmsuzkpj72-10-5151 10:11-0500Body mpinld991.5 cmSherri Desloge [employer] Work Phone: [facility] HospitalCwkrqolwhk97-84-1046 10:11-0500Body mass index (BMI) [Ratio]50.33 kg/v2MouucqKamila Espitiavely [employer] Work Phone: [facility] HospitalEwznqcdjnj60-18-5650 10:11-0500Body ghqunn379.83 kgKamila Espitiavely [employer] Work Phone: [facility] HospitalSgdldlqtdm63-73-0087 10:11-0500Diastolic blood wvjikoov64 mm[Hg]Kamila Pride [employer] Work Phone: [facility] HospitalNvobpwplsw43-29-5146 10:11-0500Heart rate77 /min Kamila Pride [employer] Work Phone: [facility] HospitalQczkqpzbwn59-18-4399 10:11-0500Respiratory rate18 /minSlola Pride [employer] Work Phone: [facility] HospitalFhwnlqkatg33-72-8688 10:11-7781JbE2% (BldA) [Mass fraction]99 %Kamila Pride [employer] Work Phone: [facility] HospitalSxlfuvokav19-94-6760 10:11-0500Systolic blood xxsprvel451 mm[Hg]Kamila Pride [employer] Work Phone: [facility] HospitalWzehobvkcw47-69-8941 11:32-0500Body bkoajd216.5 Feliberto Pride [employer] Work Phone: [facility] HospitalXzaogmuoqt52-17-7805 11:32-0500Body mass index (BMI) [Ratio]48.54 kg/t3AawohjKamila Espitiavely [employer] Work Phone: [facility] HospitalWnkirqekzm13-11-3489 11:32-0500Body drregf110.39 kgKamila Espitiavely [employer] Work Phone: [facility] HospitalGpxgdjwbyw49-25-8312 11:32-0500Diastolic blood ohodnnfm25 mm[Hg]Kamila Pride [employer] Work Phone: [facility] HospitalRnkfzagpxp93-20-5100 11:32-0500Heart rate97 /min Kamila Pride [employer] Work Phone: [facility] HospitalRerousabrc15-78-6114 11:32-0500Respiratory rate18 /minSri Bigg [employer] Work Phone: [facility] HospitalVcxexivrex43-32-6730 11:32-5690MsE9% (BldA) [Mass fraction]98 %Kamila Desloge [employer] Work Phone: [facility] HospitalMejcvwkkbo88-42-0324 11:32-0500Systolic blood zojphuwu534 mm[Hg]Kamila Espitiavely [employer] Work Phone: [phone] [place], [place] [address]Zuevkuknsd31-29-3487 10:53-0500Body frcmhi725.5 cmSri Desloge [employer] Work Phone: [phone]-[address] [place], [place] [address]Guhjwscoih19-90-7433 10:53-0500Body mass index (BMI) [Ratio]48.87 kg/c9Wkdhbj Desloge [employer] Work Phone: [phone])970-[address] [place], [place] [address]Ashqjzxrvo98-88-4838 10:53-0500Body otwwzr167.2 kgShlashawnmekhi Bigg [employer] Work Phone: [phone])281-[address] [place], [place] [address]Ipcmldfkgm50-78-2074 10:53-0500Diastolic blood oqixlidg38 mm[Hg]Kamila Espitiavely [employer] Work Phone: [phone])977-[address] [place], [place] [address]Usyplnxyye57-00-5541 10:53-0500Heart rate88 /min Kamila Bigg [employer] Work Phone: 1(455)776-[address] [place], [place] [address]Fxryxjflpt79-46-0776 10:53-0500Respiratory rate18 /minSlola Espitiavely [employer] Work Phone: 1([phone])220-[address] [place], [place] [address]Wowngckykg92-09-6479 10:53-6659EuR6% (BldA) [Mass fraction]95 %Kamila Desloge [employer] Work Phone: [phone])330-[address] [place], [place] [address]Ffwvvztqze17-93-4537 10:53-0500Systolic blood etegzjsn228 mm[Hg]Kamila Espitiavely [employer] Work Phone: [phone])849-[address] [place], [place] [address]Kdfclwelna86-95-5572 08:32-0500Body ukqztl377.5 cmSlola Espitiavely [employer] Work Phone: 1(157)196-[address] [place], [place] [address]Sdhpuensgx07-07-9052 08:32-0500Body mass index (BMI) [Ratio]49.6 kg/u7Jdsmww Bigg [employer] Work Phone: [facility] HospitalIjzvcpmqql30-36-8476 08:32-0500Body hgyhof938.02 kgSherri Desloge [employer] Work Phone: [facility] HospitalWhqiwhoifc90-21-3934 08:32-0500Diastolic blood wdgvermx97 mm[Hg]Kamila Bigg [employer] Work Phone: [facility] HospitalYxoaomfpab83-40-1977 08:32-0500Heart rate74 /min Kamila Desloge [employer] Work Phone: [facility] HospitalYjcjvezzoz17-78-5608 08:32-0500Respiratory rate17 /minSri Desloge [employer] Work Phone: [phone])[facility]-50[address] HospitalEekxsmulas95-52-2012 08:32-2934LuE0% (BldA) [Mass fraction]98 %Kamila Desloge [employer] Work Phone: [facility] HospitalZfazbkizsz70-16-0079 08:32-0500Systolic blood arjwpaaa940 mm[Hg]Kamila Desloge [employer] Work Phone: [facility] HospitalRaarwubtdk39-24-5162 11:19-0500Body .5 cmSri Bigg [employer] Work Phone: [place] [address]Cxdnuypavx47-73-6785 11:19-0500Body mass index (BMI) [Ratio]50.85 kg/q6Lagpzu Desloge [employer] Work Phone: 1([phone] [place], [place] [address]Gtdouqxtps35-81-0310 11:19-0500Body gnuzke162.1 kgSherri Bigg [employer] Work Phone: [place] [address]Ijrdatgndi97-03-8267 11:19-0500Diastolic blood mm[Hg]Kamila Bigg [employer] Work Phone: [phone])[facility]-[address] [place], [place] [address]Enqwanwjxv60-17-8446 11:19-0500Heart djqx758 /min Kamila Desloge [employer] Work Phone: [phone] [place], [place] [address]Dpizcnpdkn28-33-3546 11:19-1820KdI4% (BldA) [Mass fraction]98 %Kamila Desloge [employer] Work Phone: [facility] HospitalNtxhlomxes11-12-4040 11:19-0500Systolic blood jjkaxdrr066 mm[Hg]Kamila Pride [employer] Work Phone: [facility] HospitalTyfwgyxcov32-68-5587 14:09-0400Body raofmr688.5 cmAlex Brown DPM Work Phone: [facility] HospitalXobwwlrtvc45-82-7752 14:09-0400Body mass index (BMI) [Ratio]50.85 kg/x6OwgohxcbAlex Alfredo DPM Work Phone: [facility] HospitalCtpohprnzt10-61-2214 14:09-0400Body ilslhi368.1 kgAlex Alfredo DPM Work Phone: [facility] HospitalJagmjauqli56-30-0325 14:09-0400Diastolic blood hyduzvjj63 mm[Hg]Alex Alfredo DPM Work Phone: [facility] HospitalHaswcwyzyx44-44-4308 14:09-0400Heart rate82 /min Alex Alfredo DPM Work Phone: [facility] HospitalAasasxvbcd06-50-0898 14:09-0400Systolic blood ceehprls215 mm[Hg]Alex Alfredo DPM Work Phone: [facility] HospitalZilxmqtuwh11-20-7763 14:42-0500Body ufumrq404.5 cmAlex Alfredo DPM Work Phone: [facility] HospitalXaoxdwexbj84-37-1435 14:42-0500Body mass index (BMI) [Ratio]50.48 kg/g0UyykusvhAlex Alfredo DPM Work Phone: [facility] HospitalTvakqgteqz29-54-2591 14:42-0500Body iwtlzf251.19 kgAlex Alfredo DPM Work Phone: [facility] HospitalWieridhckx16-62-0219 14:42-0500Diastolic blood ucdsfdnp02 mm[Hg]Alex Alfredo DPM Work Phone: [facility] HospitalFmoehhkojt90-34-9135 14:42-0500Heart rate84 /min Alex Alfredo DPM Work Phone: [phone] [place], [place] [address]Wwofurzpkd99-89-2917 14:42-0500Systolic blood oyynxvvi896 mm[Hg]Alex Alfredo DPM Work Phone: [phone] [place], [place] [address]Iqtrnvfkbe04-01-0206 15:33-0500Body prajsc011.5 cmLyricjeffery Alfredo DPM Work Phone: [phone] [place], [place] [address]Ccrxjswzgp36-29-2080 15:33-0500Body mass index (BMI) [Ratio]50.48 kg/q2Ffetvnrh Yonatan DPM Work Phone: [phone] [place], [place] [address]Ygrhbvpupy07-90-8445 15:33-0500Body uiwdqv979.19 kgLyricjeffery Alfredo DPM Work Phone: [phone] [place], [place] [address]Ykwfrsesxc00-75-0440 15:33-0500Diastolic blood pwtmbyzl98 mm[Hg]Alex Alfredo DPM Work Phone: [phone] [place], [place] [address]Epjcnlecym82-09-7876 15:33-0500Heart rate79 /min Alex Alfredo DPM Work Phone: [phone] [place], [place] [address]Ulnllnhazn48-54-3150 15:33-0500Systolic blood zapwyxod437 mm[Hg]Alex Alfredo DPM Work Phone: [phone] [place], [place] [address]Enhokdzesr42-42-4528 15:36-0400BMI (Body Mass Index)46.35 kg/r2Yofwzsq [facility] Work Phone: 1([phone]) [phone] 15:36-0400Body xfhoez103.47 kgMatthew [facility] Work Phone: 1(381) 863-335109-17-2020 15:36-0400BSA (Body Surface Area)2.22 m2 Tasia [facility] Work Phone: 1(288) 791-277509-17-2020 15:36-1720Vgyzzq132.56 cmMatthew [facility] Work Phone: Encounters Encounter DateEncounter TypeCare ProviderFacilityStart: 02-17-2025 End: 64-92-1160Lqkfgjoim Result EncounterGeneric External Data ProviderNOMS External Department UnsolicitedStart: 02-17-2025 End: 48-03-5729Lfpiufdro Result EncounterGeneric External Data ProviderNOMS External Department UnsolicitedStart: 01-23-2025 End: 01-00-1394Tgtrsyniu Result EncounterGeneric External Data ProviderNOMS External Department UnsolicitedStart: 01-23-2025 End: 12-98-9712Nfssmciuq Result EncounterGeneric External Data ProviderNOMS External Department UnsolicitedStart: 2024 End: 11-79-4833Lkxyuk outpatient visit 25 minutesAmber Hawley MD Work Phone: uh [facility] HospitallandsComment on above:Encounter to discuss test results (Primary Dx); Uses roller walker; Palpitations; Mixed hyperlipidemia; Chest discomfort; CARO on CPAP; Paroxysmal supraventricular tachycardia; Never smoked cigarettes; Body mass index (BMI) 40.0-44.9, adult (Multi)Start: 2024 End: 06-23-2431tjfnnxzdoyMJGWMOBrunswick Hospital Center AmbulatoryStart: 11-04-2024 End: 26-88-9853qluhktnesrVckxddfTima Sanchez MDFacility:PM Nya Start: 10-16-2024 End: 95-15-6797Wboica Jerome Pride BUNDLE CUTTER Work Phone: NOMS CI FMStart: 10-16-2024 End: 76-55-6511Qubatl Jerome Pride BUNDLE CUTTER Work Phone: NOMS CI FMStart: 10-16-2024 End: 79-47-7117Rafzhf outpatient visit 15 minutesKamila Pride BUNDLE CUTTER Work Phone: NOMS CI FMComment on above:Acute low back pain without sciatica, unspecified back pain laterality (Primary Dx)Start: 10-16-2024 End: 25-56-7677BwlequCefilc B Berry MD Work Phone: NOMS CI FMComment on above:Lumbosacral spondylosis without myelopathyStart: 10-14-2024 End: 01-66-3751aueuobtqqrRbqokvi Vytautas Giedraitis MDFacility:PM Nya Start: 10-10-2024 End: 08-67-2664Uxtavjk encounter procedureAlex Alfredo DPM Work Phone: noMS CI PODIATRYComment on above:Pain due to onychomycosis of toenails of both feet (Primary Dx)Start: 10-10-2024 End: 34-16-2386shacuqztklJDFLLBZG A BROWNNot AvailableStart: 10-01-2024 End: 23-35-6570Umpighsyu Result EncounterGeneric External Data ProviderNOMS External Department UnsolicitedStart: 10-01-2024 End: 71-55-8031Cpirhdeta Result EncounterGeneric External Data ProviderNOMS External Department UnsolicitedStart: 09-19-2024 End: 79-12-4191hcecmnelmkGBDEYKArch[facility] AmbulatoryStart: 09-18-2024 End: 25-69-2831Mdqnfghozi hospital visit by physicianJessica Dobbins Admin Room 1[facility] HospitalComment on above:Lightheadedness; Chest discomfort; Palpitations; Mixed hyperlipidemiaParoxysmal supraventricular tachycardia; Abnormal EKG; PalpitationsStart: 09-18-2024 End: 48-68-2149yqnnovbpnfCZPSFJACMC Healthcare System Start: 09-16-2024 End: 45-56-9826isfyyfasxfZwitwin Vytautas Giedraitis MDFacility:PM Nya Start: 09-10-2024 End: 60-83-4909LwkwhqUbkprm M Shively NP Work Phone: NOMS CI FMComment on above:Primary insomniaStart: 08-19-2024 End: 30-23-1666Xrcfbu outpatient visit 25 minutesRoc Steele MD Work Phone: NOMS CI FMComment on above:Age-related osteoporosis without current pathological fracture (CMS/HCC) (Primary Dx); Osteopenia of both hips; Chronic coughStart: 08-19-2024 End: 03-63-6289lhgwfntgetCDLFJL B BERRYNot AvailableStart: 08-01-2024 End: 48-52-1034taoycnomcnQOZSPKLI A BROWNNot AvailableStart: 08-01-2024 End: 88-28-4874Siiyfyo encounter procedureAlex Alfredo DPM Work Phone: noms CI PODIATRYComment on above:Pain due to onychomycosis of toenails of both feet (Primary Dx)Start: 08-01-2024 End: 78-14-7039Jakuxa Jerome Pride BUNDLE CUTTER Work Phone: NOMS CI FMStart: 08-01-2024 End: 88-98-6230Ufwdlr Jerome Pride BUNDLE CUTTER Work Phone: NOMS CI FMStart: 08-01-2024 End: 17-50-1842Ngwutc outpatient visit 25 minutesShsharona Pride BUNDLE CUTTER Work Phone: NOMS CI FMComment on above:SOB (shortness of breath) (Primary Dx); Chronic cough; Lumbosacral spondylosis without myelopathy; Seasonal allergic rhinitis, unspecified trigger; Age-related osteoporosis without current pathological fracture ([facility])Start: 08-01-2024 End: 93-55-3341txdnmlxtbkIKBVIM M SHIVELYNot AvailableStart: 07-26-2024 End: 45-34-2533mujyavmmvcUUUFBE M SHIVELYNot AvailableStart: 07-18-2024 End: 19-89-0808Pfjpgpalq Result EncounterRoc Steele MD Work Phone: noms External Department UnsolicitedStart: 07-18-2024 End: 10-49-1573Mtgakaxni Result EncounterRoc Steele MD Work Phone: noms External Department UnsolicitedStart: 07-15-2024 End: 44-27-9358Rutnqw consultation new/estab patient 61 Enedina Hawley MD Work Phone: uh [facility] HospitalComment on above:Encounter to establish care with new doctor; Paroxysmal supraventricular tachycardia (CMS-HCC); Abnormal EKG; Lightheadedness; Chest discomfort; Palpitations; Primary hypertension; Stenosis of carotid artery, unspecified laterality; Mixed hyperlipidemia; Stage 3a chronic kidney disease (Multi); Gastroesophageal reflux disease without esophagitis; At high risk for falls; Uses roller walker; Severe obesity (BMI >= 40) (Multi); Never smoked cigarettesStart: 07-15-2024 End: 92-26-0329lqqnbrbfueKPACKNArchbold - [facility] AmbulatoryStart: 07-11-2024 End: 34-56-1525Hhqph of hemosiderin, quantKamila Pride NP Work Phone: NOZG HealthcareStart: 07-11-2024 End: 92-08-1114Wyjdgmf encounter procedureSlola Pride NP Work Phone: noMS CI FMComment on above:Insomnia, unspecified type (Primary Dx); Obstructive sleep apnea; [...] congestive heart failure, unspecified heart failure type (CMS/HCC)Start: 07-11-2024 End: 69-99-2604izjzlebltdQNDGDFJusto Bhatt AvailableStart: 07-05-2024 End: 49-09-5954gvwdqmvujiJYLFUVJusto Bhatt AvailableStart: 07-03-2024 End: 00-87-3204Uietyn Jerome Pride BUNDLE CUTTER Work Phone: NOMS CI FMStart: 07-03-2024 End: 26-00-4337Isoiji Jerome Pride BUNDLE CUTTER Work Phone: NOMS CI FMStart: 07-03-2024 End: 43-42-9039Rbfovb outpatient visit 25 minutesShsharona Pride BUNDLE CUTTER Work Phone: NOMS CI FMComment on above:Paroxysmal supraventricular tachycardia (CMS/HCC) (Primary Dx); Primary insomnia; Acute congestive heart failure, unspecified heart failure type (CMS/HCC); Stage 3b chronic kidney disease (HCC) (CMS/HCC); Weakness; Other fatigue; Pain of right hip; Fall, initial encounterStart: 07-03-2024 End: 31-43-1029prumllllsvDPFHEM M SHIVELYNot AvailableStart: 06-11-2024 End: 67-11-4828Emzeia Jerome Pride BUNDLE CUTTER Work Phone: NOMS CI FMStart: 06-11-2024 End: 70-26-1397Lymowh Jerome Pride BUNDLE CUTTER Work Phone: NOMS CI FMStart: 06-11-2024 End: 29-87-7304Sahzdk outpatient visit 25 minutesKamila Pride BUNDLE CUTTER Work Phone: NOMS CI FMComment on above:Palpitations (Primary Dx); Acute cough; Acute congestive heart failure, unspecified heart failure type (CMS/HCC); Acute non-recurrent pansinusitisStart: 06-11-2024 End: 77-58-8896snyoyztcddTZPCWOJusto Bhatt AvailableStart: 05-23-2024 End: 24-44-6400Klauwny encounter Susan PAGANM Work Phone: NOMS CI PODIATRYComment on above:Pain due to onychomycosis of toenails of both feet (Primary Dx)Start: 05-23-2024 End: 12-48-6443paqobfwkgdJOADAHYF A BROWNNot AvailableStart: 05-22-2024 End: 19-43-8834Assxco flowsWendy Pride BUNDLE CUTTER Work Phone: NOMS CI FMStart: 05-22-2024 End: 92-90-8607Nmdpix flowsWendy Pride BUNDLE CUTTER Work Phone: NOMS CI FMStart: 05-22-2024 End: 02-80-0394Ufjfib outpatient visit 25 minutesKamila Pride BUNDLE CUTTER Work Phone: NOMS CI FMComment on above:Stage 3b chronic kidney disease (HCC) (CMS/HCC) (Primary Dx); Benign essential hypertension (CMS/HCC); Hypomagnesemia; Pneumonia of both lungs due to infectious organism, unspecified part of lung Start: 05-22-2024 End: 33-02-1607lfdhtsqjfeWVVECCJusto Bhatt AvailableStart: 05-16-2024 End: 77-42-4703Lnzakfhhp Result EncounterSlola Pride BUNDLE CUTTER Work Phone: NOMS External Department UnsolicitedStart: 05-16-2024 End: 15-11-5749Nkehpdldc Result EncounterSlola rPide BUNDLE CUTTER Work Phone: NOMS External Department UnsolicitedStart: 05-15-2024 End: 79-15-9267Ptnlgp outpatient visit 25 minutesKamila Pride BUNDLE CUTTER Work Phone: NOMS CI FMComment on above:Edema, unspecified type (Primary Dx); Pulmonary fibrosis, unspecified (CMS/HCC); Acute congestive heart failure, unspecified heart failure type (CMS/HCC); Generalized weakness; Pneumonia of both lungs due to infectious organism, unspecified part of lung Start: 05-15-2024 End: 04-38-5765kusrzdtgmjGOFWFQJusto Bhatt AvailableStart: 05-12-2024 End: 64-98-2587Kfuynzllw Result EncounterGeneric External Data ProviderNOMS External Department UnsolicitedStart: 05-12-2024 End: 31-60-8689Rtqkregss Result EncounterGeneric External Data ProviderNOMS External Department UnsolicitedStart: 05-07-2024 End: 83-16-8271Hpmbql outpatient visit 25 minutesKamila Pride BUNDLE CUTTER Work Phone: NOMS CI FMComment on above:Bronchitis (Primary Dx); Acute cough; Exudative age-related macular degeneration, left eye, with active choroidal neovascularization (CMS/HCC); Ankylosing spondylitis of thoracic region (CMS/HCC); Exudative age-related macular degeneration, right eye, with active choroidal neovascularization (CMS/HCC); Exudative age-related macular degeneration, bilateral, with active choroidal neovascularization (CMS/HCC); Morbid (severe) obesity due to excess calories (CMS/HCC); Body mass index (BMI) 45.0-49.9, adult (CMS/HCC)Start: 05-07-2024 End: 55-58-3091hvxcfrtdrmZSQUON M SHIVELYNot AvailableStart: 04-29-2024 End: 05-52-9641doqujkjaebTdhuJeannie SappFacility:[facility] Springfieldtart: 04-15-2024 End: 12-43-4209XzgmknVgraiz M Shively BUNDLE CUTTER Work Phone: NOMS CI FMComment on above:Primary insomniaStart: 04-04-2024 End: 51-28-6691Auxjoo OnlyKamila Pride BUNDLE CUTTER Work Phone: NOMS CI FMComment on above:Acute pulmonary edema (CMS/HCC) (Primary Dx); HypokalemiaStart: 04-03-2024 End: 94-85-8179Fsbgny Jerome Pride BUNDLE CUTTER Work Phone: NOMS CI FMStart: 04-03-2024 End: 09-05-0577Pmikbz Jerome Pride BUNDLE CUTTER Work Phone: [phone] CI FMStart: 04-03-2024 End: 86-45-8744kmhaesyqmaJZPGNC M SHIVELYNot AvailableStart: 04-03-2024 End: 35-06-0902Yuaqsj outpatient visit 25 minutesKamila Pride BUNDLE CUTTER Work Phone: NOMS CI FMComment on above:Acute cough (Primary Dx); Rib pain; Fall, initial encounter; Shortness of breath; Lumbosacral spondylosis without myelopathy; Pain of right hand; Right wrist pain; Acute non-recurrent sinusitis of other sinusStart: 04-03-2024 End: 02-32-3030pewxcecsqxGZPRYBJusto Bhatt AvailableStart: 03-07-2024 End: 09-66-3539Xivcvl flowsheetChristopher Ritchie DO Work Phone: NOMS [facility]TEStart: 03-07-2024 End: 87-11-8705Inxqce flowsheetChristopher Ritchie DO Work Phone: noMS [facility] R[facility]TEStart: 03-07-2024 End: 19-85-6879Bhuspts encounter procedureChristopher Ritchie DO Work Phone: noMS [facility] ROUTEComment on above:Carpal tunnel syndrome on left (Primary Dx)Start: 03-07-2024 End: 08-02-9231ehbprjzovhTNTRVOVFQNG RITCHIENot AvailableStart: 03-05-2024 End: 76-22-8830Xsyxcd Jerome Pride BUNDLE CUTTER Work Phone: NOMS CI FMStart: 03-05-2024 End: 47-42-4703Telohe Jerome Pride BUNDLE CUTTER Work Phone: NOMS CI FMStart: 03-05-2024 End: 01-84-2523Tsqyex outpatient visit 25 minutesKamila Pride BUNDLE CUTTER Work Phone: NOMS CI FMComment on above:Cellulitis of finger of left hand (Primary Dx); Flu vaccine need; Numbness of hand; Encounter for screening mammogram for malignant neoplasm of breast; Lymphadenopathy; Axillary pain, left; Ankylosing spondylitis of thoracic region (CMS/HCC)Start: 03-05-2024 End: 79-92-4118uroihttdwcPPSEBFJusto Bhatt AvailableStart: 02-29-2024 End: 15-66-5619ZtiyiuPcdnll B Berry MD Work Phone: [phone] CI FMComment on above:Lumbosacral spondylosis without myelopathyStart: 02-22-2024 End: 86-20-6418Kqdzocz encounter procedureAlex Alfredo DPM Work Phone: noms CI PODIATRYComment on above:Pain due to onychomycosis of toenails of both feet (Primary Dx)Start: 02-22-2024 End: 62-27-9295Tstrvb Nicholas Alfredo DPM Work Phone: noms CI PODIATRYStart: 02-22-2024 End: 50-88-3819Jctfbp Nicholas Alfredo DPM Work Phone: noms CI PODIATRYStart: 02-22-2024 End: 87-31-6339mwexsvrwhgQZBXWDJK A BROWNNot AvailableStart: 01-29-2024 End: 28-50-8892UduuklXobujw B Berry MD Work Phone: noms CI FMComment on above:Benign essential hypertension (CMS/HCC)Start: 12-14-2023 End: 01-30-1542vixbkbyowsEPRJTJUF A BROWNNot AvailableStart: 11-30-2023 End: 39-90-5362lyexemurrpBEEHHXJusto Bhatt AvailableStart: 06-22-2023 End: 74-24-4566Cjszbunan Result EncounterGeneric External Data ProviderNOMS External Department UnsolicitedStart: 06-22-2023 End: 19-83-8327Wbrguoqrm Result EncounterGeneric External Data ProviderNOMS External Department UnsolicitedStart: 06-15-2023 End: 45-68-0384Rwxvmr outpatient visit 15 minutesAlex Alfredo DPM Work Phone: noms CI PODIATRYComment on above:Subungual exostosis of great toe (Primary Dx); Onychocryptosis; Toe pain, right; Toe pain, leftStart: 41-27-6229Litkt Maren Alfredo DPM Work Phone: noms CI PODIATRYStart: 06-01-2023 End: 12-97-2131Iiswim outpatient visit 15 minutesAlex Alfredo DPM Work Phone: NOMS CI PODIATRYComment on above:Subungual exostosis of great toe (Primary Dx); Onychocryptosis; Toe pain, rightStart: 43-65-4694Inhcjfx encounter procedureORTCFOWALK ORTHO [facility] Work Phone: [phone]-XjzjqjAll[facility] Work Phone: Start: 52-78-4339xqwmqsxqrqJc. Roc Steele II Facility:[id number]: 09-05-2022 End: 08-85-1049ktyoerlwizWX SARABJIT CORNEJO .Facility:T6Fpuaw: 09-03-2022 End: 73-39-2873oakzfqopphMBIKKY RODRIGUEZ .Facility:Q1Lisat: 06-06-2022 End: 66-53-7350nllvkymtdlYU ROC STEELEFacility:H3Dxksr: 47-06-7231Bvgnpbf encounter procedureTaniya Al MD Work Phone: [phone]-PgnawkAll[facility] Work Phone: Start: 12-28-3008Oqhsj UpdateTasia Bird MD Work Phone: [phone]-FuoqovAll[facility] Work Phone: Start: 41-49-3419Xianjzk encounter procedureTasia Bird MD Work Phone: [phone]-HbzvcyAll[facility] Work Phone: Start: 71-94-0824Onolcey encounter procedureMalamont Stein-[facility] Work Phone: Start: 87-32-0855Grejemo encounter procedureMalamont AlarconJefferson Health Northeast-[facility] Work Phone: Procedures DateProcedureProcedure DetailPerforming ClinicianStart: 35-72-5459UJ ANKLE LT MIN 3VGeneric External Data ProviderStart: 73-22-9138VV ANKLE LT MIN 3VGeneric External Data ProviderStart: 53-87-4413JB LUMBAR SPINE WO CONGeneric External Data ProviderStart: 80-58-4288Hyuo tthrc r-t 2d w/wom-mode compl spec&colr d Amber Hawley MD Work Phone: Start: 00-40-2345Gkmnv 1996 panel - Serum or PlasmaEly 2Start: 05-31-4066OF TOMOSYNTHESIS SCREENING Hannah Steele MD Work Phone: Start: 61-82-3601Hdw routine ecg w/least 12 lds w/i&r Amber Hawley MD Work Phone: Start: 63-37-5720Ickkleuggz glycosylated o8vElvang Ren Pride BUNDLE CUTTER Work Phone: Start: 07-13-3492VIR BASIC METABOLIC PANELSlola Pride BUNDLE CUTTER Work Phone: Start: 20-92-5318TOURG CULTURE 1Generic External Data ProviderStart: 03-07-2024 End: 01-85-6232Gizxaw emg ea extremty w/paraspinl area completeChristopher Ritchie DO Work Phone: Start: 86-25-6699JZ CHEST 2VGeneric External Data ProviderStart: 91-05-8019HAS 12-LEADGeneric External Data ProviderImplantation of joint prosthesisMatthew Pelon Plan of Treatment DateCare ActivityDetailAuthorStart: 47-41-1233Dzudx panelLipid PanelCommunity Memorial Hospital: 61-78-2481Pwjxxmqva for osteoporosisBone Density ScanCommunity Memorial Hospital: 69-55-5137Obdwamwivmzvbmei EchocardiogramCommunity Memorial Hospital: 05-16-2025 End: 18-03-3599Wzpuhmj encounter klukreslo96/16/2026 2:00 PM EST Office Visit [facility] [address] [facility] [address] [place] [address] Amber Hawley MD [address] [facility] [address] [place] [address] [facility]: 52-96-2292SCYFX-19 Vaccine ( season)COVID-19 Vaccine ( season)NOMS HealthcareStart: 12-30-2024 Influenza vaccinationInfluenza Vaccine (#1)[facility] Start: 12-19-2024 End: 49-09-5452Zemqnfa encounter yusvtxyqt28/21/2025 3:00 PM EDT Procedure Visit [facility] [address] [facility] [address] [place] [address] Alex Alfredo DPM [address] [facility] 5 [place] [address] NOMS CI PODIATRYStart: 11-20-2024 End: 90-01-1351Lpfkbvxzemod / ancillary services kwrrxahvvv51/23/2025 2:00 PM EDT Ancillary Procedure [facility] [address] [place] [address] ZN FirelandsStart: 2024 End: 04-75-0926Wusiwuo encounter rfyagvkat38/18/2025 2:15 PM EDT Office Visit [address] [address] Amber Hawley MD [address] [facility] [address] [place] [address] [facility]: 20[facility] End: 00-21-5040Ncdjlo monitor studyHolter Or Event Train Engineer Cardiac Services Routine Palpitations Expected: 2024 (Approximate), Expires: 2026[facility] Work Phone: Comment on above:Expected: 2024 (Approximate), Expires: 2026Start: 11-04-2024 End: 90-88-9669Jekspen encounter /07/2025 2:30 PM EDT Office Visit [address] [place] [address] Amber Hawley MD [address] [facility] [address] [place] [address] [facility]: 10-30-2024 End: 59-59-0244Eujbgup encounter fvenlbbqb59/02/2025 11:30 AM EDT Office Visit [facility] [address] [facility] [address] [place] [address] Kamila Pride NP [address] [facility] [address] [place] [address] NOM[facility] CI FMStart: 10-16-2024 End: 76-76-2209Mvdeiec encounter procedureNOMS CI FMComment on above:Arrived Start: 10-10-2024 End: 84-75-5142Vcnuhvh encounter asqpvmwum28/12/2025 3:00 PM EDT Procedure Visit [facility] [address] [facility] [address] [place] [address] Alex Alfredo, DPRen [address] [facility] 5 [place] [address] NOMS CI PODIATRYStart: 09-19-2024 End: 75-39-6988Rpfoevvabzki / ancillary services /22/2025 1:00 PM EDT Ancillary Procedure [address] [place] [address] UV FirelandsStart: 09-19-2024 End: 25-29-7274Yhinjmz encounter procedure Sangeetha [facility]: 09-19-2024 Subsequent hospital visit by pzymnongu50/22/2025 11:30 AM EDT Hospital Encounter [address] [place] [phone] [facility] 09-18-2024 End: 41-07-2796Tsnmezt encounter procedure [facility]Kind[facility]: 08-01-2024 End: 29-94-4410Mgpkjwh encounter procedureNOMS CI PODIATRYComment on above: ArrivedStart: 07-23-2024 End: 54-11-2716Xifcegpainsa / ancillary services bzccbxpzoh69/25/2025 11:30 AM EDT Ancillary Procedure [facility] [address] [place] [address] RTWI FNR DXAStart: 07-15-2024 End: 14-54-9031Jdrduy monitor studyHolter Or Event Train Engineer Cardiac Services Routine Paroxysmal supraventricular tachycardia (CMS-HCC) Abnormal EKG Lightheadedness Chest discomfort Palpitations Expected: 07/15/2024 (Approximate) , Expires: 07/15/2025[facility] Work Phone: Comment on above:Expected: 07/15/2024 (Approximate), Expires: 07/15/2025Start: 07-15-2024 End: 52-83-1033UU Heart Perfusion W stress and W radionuclide IVNuclear Stress Test Cardiac Nuclear Medicine Routine Lightheadedness Chest discomfort Palpitations Mixed hyperlipidemia Expected: 07/15/2024 (Approximate), Expires: 07/15/2026[facility] Work Phone: Comment on above:Expected: 07/15/2024 (Approximate), Expires: 07/15/2026Start: 07-15-2024 End: 56-32-1686BS Heart TransthoracicTransthoracic Echo Complete Echocardiography Routine Paroxysmal supraventricular tachycardia (CMS-HCC) Abnormal EKG Palpitations Expected: 07/15/2024 (Approximate), Expires: 07/15/2026[facility] Service Area Work Phone: Comment on above:Expected: 07/15/2024 (Approximate), Expires: 07/15/2026Start: 07-11-2024 End: 29-54-3391FDQ Skeletal system Views for bone densityDEXA bone density Imaging Routine Osteopenia of both hips Decreased estrogen level Expected: 07/11/2024, Expires: 07/11/2025[facility] Work Phone: Comment on above:Expected: 07/11/2024, Expires: 07/11/2025Start: 07-11-2024 End: 24-87-2693Knsku 1996 panel - Serum or PlasmaLipid panel Lab Routine Hyperlipidemia, unspecified hyperlipidemia type (CMS/HCC) Medicare annual we llness visit, subsequent Expected: 07/11/2024 (Approximate), Expires: 07/11/2025 NOMS HealthcareComment on above:Expected: 07/11/2024 (Approximate), Expires: 07/11/2025Start: 07-11-2024 End: 37-79-0829Wodojqfcazxq/Creatinine panel in random UrineMicroalbumin / creatinine, urine ratio Lab Routine IGT (impaired glucose tolerance) Expected: 07/11/2024 (Approximate), Expires: 07/11/2025NOMS HealthcareComment on above: Expected: 07/11/2024 (Approximate), Expires: 07/11/2025Start: 07-11-2024 End: 02-72-1948Fgqypgl encounter qxoiwzpml34/13/2025 1:00 PM EDT Office Visit [facility] [address] [facility] [address] [place] [address] Kamila Pride BUNDLE CUTTER [address] [facility] [address] [place] [address] NOMS CI FMStart: 03-08-2025Medicare Annual Wellness VisitMedicare Annual Wellness Visit (AWV)[facility]: 03-07-2025Medicare Annual Wellness (AWV)Medicare Annual Wellness (AWV)NOMS HealthcareStart: 07-03-2024 End: 09-99-3167Tvlhranfkbpqb metabolic 2000 panel - Serum or PlasmaComprehensive metabolic panel Lab Routine Stage 3b chronic kidney disease (HCC) (CMS/HCC) Expected:07/03/2024 (Approximate), Expires: 07/03/2025[facility] Work Phone: Comment on above:Expected: 07/03/2024 (Approximate), Expires: 07/03/2025Start: 07-03-2024 End: 80-05-5048Arctztfzr [Mass/volume] in Serum or PlasmaMagnesium Lab Routine Stage 3b chronic kidney disease (HCC) ([facility]/HCC) Weakness Other fatigue Expected: 07/03/2024 (Approximate), Expires: 07/03/2025NOMS HealthcareComment on above: Expected: 07/03/2024 (Approximate), Expires: 07/03/2025Start: 07-03-2024 End: 28-53-1769IU Hip - right 3 ViewsXR hip right 2 or 3 views Imaging Routine Pain of right hip Fall, initial encounter Expected: 07/03/2024, Expires: 07/03/2025NOMS HealthcareComment on above:Expected: 07/03/2024, Expires: 07/03/2025Start: 07-03-2024 End: 46-10-5984Snqtdit encounter jadpdgjlh35/05/2025 11:30 AM EST Office Visit [facility] [address] [place] [phone] Kamila Pride NP [address] [place] [address] ArrivedNOMS CI FMComment on above:ArrivedStart: 06-11-2024 End: 62-99-1546Pkejfyvmnwb peptide B [Mass/volume] in BloodB-type natriuretic peptide Lab Routine Acute congestive heart failure, unspecified heart failure type ([facility]) Expected: 06/11/2024 (Approximate), Expires: 06/11/2025[facility] Work Phone: Comment on above:Expected: 06/11/2024 (Approximate), Expires: 06/11/2025Start: 06-11-2024 End: 20-16-8918Gjqfyia encounter mnbkalmou50/11/2025 11:00 AM EST Office Visit [facility] [address] [place], [place] [id number] Kamila Pride BUNDLE CUTTER [address] [place] [address] ArrivedNOMS CI FMComment on above:ArrivedStart: 05-23-2024 End: 66-98-9052Xmqeepx encounter hrclmwvyw87/23/2025 2:40 PM EST Procedure Visit [facility] [address] [facility] [address] [place] [phone] Alex Alfredo, DPM [address] [facility] 5 [place] [address] NOMS CI PODIATRYStart: 05-22-2024 End: 95-54-4701AMH panel - Blood by Automated countCBC Lab Routine Stage 3b chronic kidney disease (HCC) ([facility]/HCC) Expected: 05/22/2024 (Approximate), Expires: 05/22/2025NOMS HealthcareComment on above:Expected: 05/22/2024 (Approximate), Expires: 05/22/2025Start: 05-22-2024 End: 02-96-5744Yfrzpwygcuvgs metabolic 2000 panel - Serum or PlasmaComprehensive metabolic panel Lab Routine Stage 3b chronic kidney disease (HCC) ([facility]/HCC) Expected:05/22/2024 (Approximate), Expires: 05/22/2025[facility] Work Phone: Comment on above:Expected: 05/22/2024 (Approximate), Expires: 05/22/2025Start: 05-22-2024 End: 77-36-5343Pboyhozbk [Mass/volume] in Serum or PlasmaMagnesium Lab Routine Hypomagnesemia Expected: 05/22/2024 (Approximate), Expires: 05/22/2025NOMS HealthcareComment on above:Expected: 05/22/2024 (Approximate), Expires: 05/22/2025Start: 05-22-2024 End: 27-22-7913Qddxdnr encounter oszsvhglk41/22/2025 10:00 AM EST Office Visit [facility] FM [address] [facility] [address] [place] [phone] Kamila Pride, BUNDLE CUTTER [address] [facility] [address] [place] [address] ArrivedNOMS CI FMComment on above:ArrivedStart: 05-16-2024 End: 03-70-8020Lwjqkar encounter /16/2025 1:00 PM EST Office Visit [facility] FM [address] [place] [address] Kamila Pride NP [address] [place] [address] NOMS CI FMStart: 05-15-2024 End: 68-48-5824Guhro metabolic 1998 panel - Serum or PlasmaBasic metabolic panel Lab Routine Acute congestive heart failure, unspecified heart failure type ([facility]/HCC) Expected: 05/15/2024 (Approximate), Expires: 05/15/2025[facility] Work Phone: Comment on above:Expected: 05/15/2024 (Approximate), Expires: 05/15/2025Start: 05-15-2024 End: 32-19-1099Xoetpzq encounter sssedbyzt44/15/2025 11:30 AM EST Office Visit [facility] FM [address] [place] [address] Kamila Pride BUNDLE CUTTER [address] [place] [address] NOMS CI FMStart: 05-14-2024 End: 30-76-1026Yhcjugk encounter ghiszywkb30/14/2025 11:00 AM EST Office Visit [facility] FM [address] [place] [address] Kamila Pride NP [address] [place] [address] NOMS CI FMStart: 05-02-2024 End: 69-42-3013Jkmbqka encounter ejqoulkuz10/02/2025 2:50 PM EST Procedure Visit [facility] [address] [place] [address] Alex Alfredo DPM [address] [facility] 5 [place] [address] NOMS CI PODIATRYStart: 04-03-2024 End: 54-60-6283VN Chest 2 ViewsNOMS Healthcare Work Phone: Comment on above:Expected: 04/03/2024, Expires: 04/03/2025Start: 04-03-2024 End: 68-19-5729UO Hand - right 3 ViewsNOMS HealthcareComment on above:Expected: 04/03/2024, Expires: 04/03/2025Start: 04-03-2024 End: 29-47-4888Lphhwkh encounter kitlaklel29/04/2024 9:00 AM EST Office Visit [facility] FM [address] [place] [address] Kamila Pride BUNDLE CUTTER [address] [place] [address] ArrivedNOMS CI FMComment on above:ArrivedStart: 03-07-2024 End: 15-64-3608Kieenbx encounter cacfrkqhy75/07/2024 11:00 AM EST Procedure Visit [facility] [address] [place], [id number] Waqas Dugan, [address] [place], [place] [id number] Numbness of handNOMS [address] Comment on above:Numbness of handStart: 03-05-2024 End: 87-04-5155EV Breast - bilateral ScreeningBilateral screening mammogram Imaging Routine Encounter for screening mammogram for malignant neoplasm of breast Expected: 03/05/2024, Expires: 05/05/2025[facility] Work Phone: Comment on above:Expected: 03/05/2024, Expires: 05/05/2025Start: 03-05-2024 End: 48-14-4715MS AxillaUS Axilla Imaging Routine Lymphadenopathy Axillary pain, left Expected: 03/05/2024, Expires: 03/05/2025NOMS HealthcareComment on above: Expected: 03/05/2024, Expires: 03/05/2025Start: 03-05-2024 End: 76-79-7667Nkfammv encounter procedureNOMS CI FMComment on above:Arrived Start: 02-29-2024 End: 63-45-0559Zeornkm encounter /31/2024 2:00 PM EDT Office Visit [facility] FM [address] [facility] [address] [place] [phone] Kamila Pride, BUNDLE CUTTER [address] [facility] [address] [place] [address] NOMS CI FMStart: 02-22-2024 End: 93-12-9338Edcfmak encounter procedureNOMS CI PODIATRYComment on above:Pain due to onychomycosis of toenails of both feet (Primary Dx)Start: 01-31-2024 Influenza vaccinationInfluenza Vaccine (#1)NOMS HealthcareComment on above: Postponed from 12/31/2023 (Other Medical Reasons)Start: 65-15-7280IIHHZ-19 Vaccine ( season)COVID-19 Vaccine ( season)[facility]Start: 62-09-5771Dyyzzphta vaccinationInfluenza Vaccine (#1)NOMS HealthcareStart: 07-27-2023 End: 05-86-7337Cwdhmmr encounter /28/2024 3:30 PM EDT Procedure Visit [facility] [address] [facility] [address] [place] [address] Alex Alfredo DPM [address] [facility] 5 [place] [address] NOMS CI PODIATRYStart: 03-01-2024Medicare Annual Wellness (AWV)Medicare Annual Wellness (AWV)NOMS HealthcareStart: 06-29-2023 End: 17-30-1521Avqalpb encounter xdfcubonm72/29/2024 2:30 PM EST Office Visit [facility] [address] [facility] [address] [place] [address] Alex Alfredo, DPM [address] [facility] 5 [place] [address] NOMS CI PODIATRYStart: 06-15-2023 End: 52-67-0584Rigcpme encounter /15/2024 2:30 PM EST Office Visit [facility] [address] [facility] [address] [place] [address] Alex Alfredo, DPM [address] [facility] 5 [place] [address] NOMS CI PODIATRYStart: 35-88-9245Bybovhgkv for osteoporosisBone Density [facility]: 10-17-2022 NPV, Provider: Roc Alvarado, Status: Pen, Time: 1:30 PMNPV, Provider: Roc Alvarado, Status: Pen, Time: 1:30 PM-[facility] Work Phone: Start: 13-23-9556UPA High Risk: (Elderly (60+) or Population) (1 - 1-dose 75+ series)RSV High Risk: (Elderly (60+) or Population) (1 - 1-dose 75+ series)[facility] Start: 10-64-6472Bhbrsxbatw measurementCreatinine [facility]: 57-37-8767Umgxrpsp mellitus screeningDiabetes Screening [facility]: 44-02-5246Xqdpuqsdo measurementPotassium [facility] CenterUnAshtabula [facility]: 86-47-1876PMD, Provider: Tasia Bird, Status: Pen, Time: 2:15 PMFUV, Provider: Tasia Bird, Status: Pen, Time: 2:15 PM-[facility] Work Phone: Start: 43-28-4189RHF, Provider: Tasia Bird, Status: Pen, Time: 12:45 PMFUV, Provider: Tasia Bird, Status: Pen, Time: 12:45 PM- [facility] Work Phone: Start: 63-71-8652CAaA/Tdap/Td Vaccines (1 - Tdap) DTaP/Tdap/Td Vaccines (1 - Tdap)[facility]: 37-81-7837Xffza screening for proteinCKD: Urine Protein ScreeningUnAshtabula County Medical Center: 94-36-3928Ttrexsyq mellitus screeningDiabetes ScreeningUnAshtabula County Medical Center: 53-84-0978Kzzdoahbx C screening Hepatitis C ScreeningUnAshtabula County Medical Center: 1952 DTaP/Tdap/Td Vaccines (1 - Tdap)DTaP/Tdap/Td Vaccines (1 - Tdap)[facility] Start: 81-56-0696ZxfszfjbbiqrbwogQpbepvqognongxTlelucjrio [facility]als [facility] Start: 32-44-2582Ysqon panelLipid PanelUnMercy Health Urbana HospitalBLOOD CULTURE 1BLOOD CULTURE 1 Lab Routine 05/12/2024 8:10 PM [facility] End: 75-90-1625IU Heart Perfusion W stress and W radionuclide [facility] Service Area Work Phone: Comment on above:Once for 1 Occurrences starting 09/18/2024 until 09/18/2024 Immunizations Immunization DateImmunizationNotesCare GvdsdyqwKlcuzfox30-51-8561Bvdytpqlm, High-dose Seasonal, Quadrivalent, Preservative FreeKamila Pride BUNDLE CUTTER Work Phone: NOSSM [facility] CenterOuoyknorpi63-22-0038iwkcdkhhf virus vaccine, unspecified formulationAmber Hawley MD Work Phone: UnMercy Health Urbana Hospital Work Phone: [phone], High-dose Seasonal, Quadrivalent, Preservative FreeAlex PAGANM Work Phone: NOSSM [facility] CenterQvzxexvtwz85-43-0323zfehznfwa virus vaccine, unspecified formulationRoc Steele MD Work Phone: NOSSM [facility] CenterMowtqvgsvx66-64-9149Wekvhrz Bivalent Booster VaccinationNicbobby Alfredo DPM Work Phone: [facility] HospitalOjnwigweox94-47-7912Olikzmqns, High-dose Seasonal, Quadrivalent, Preservative FreeUlisesholjeffery Alfredo DPM Work Phone: [facility] HospitalTnuzuzdszi30-85-3166Hfyzvunhx, Seasonal, Quadrivalent, AdjuvantedAlex Alfredo DPM Work Phone: [phone] [place], [place] [address]Klituhkmbl59-01-4216xdxobycpd, injectable, quadrivalent, preservative freeNicholas Yonatan DPM Work Phone: [phone] [place], [place] [address]Kjxsuhlizv82-89-1777gyjzua vaccine recombinant Alex Alfredo DPM Work Phone: [facility] HospitalRjogbfrorv98-20-0705rysids vaccine recombinant Alex Alfredo DPM Work Phone: [phone] [place], [place] [address]Yofzrlvavw10-69-8777kztbntvqo, high dose seasonal, preservative-freeAlex Alfredo DPM Work Phone: [phone] [place], [place] [address]Fhixwwovpq91-06-9500bqsxwlumj, high dose seasonal, preservative-freeUlisesholas Yonatan DPM Work Phone: [facility] HospitalLuqrtfsoat83-61-8452bftnaqkog, injectable, quadrivalent, contains preservativeLyricas Yonatan DPM Work Phone: [phone] [place], [place] [address]Uejwoxizko56-16-8356gyqfuxiutywp conjugate vaccine, 13 valentAlex Alfredo DPM Work Phone: [phone] [place], [place] [address]Qmjykwbxva89-38-9360ggmufqfe influenza, intradermal, preservative freeUlisesholas Yonatan DPM Work Phone: [phone] [place], [place] [address]Sdaqvgxhap39-80-0016yjdxydii influenza, intradermal, preservative freeAlex Alfredo DPM Work Phone: [phone] [place], [place] [address]Bllppdavxp67-64-8591siyrhxilpqas polysaccharide vaccine, 23 valentAlex Alfredo DPM Work Phone: [facility] HospitalTaqtlpzhre62-55-9556tomyis vaccine, liveNicbobby Alfredo DPM Work Phone: [facility] Payers DatePayer CategoryPayerPolicy [id number] Health Insurance [id number] [id number] [id number] [id number] [id number] [id number] 2.16.840.1.163328.3.57[id number] 2.16.840.1.662327.3.57[id number] 2.16.840.1.022458.3.57[id number] 2.16.840.1.307048.3.57[id number] 2.16.840.1.644822.3.57[id number] 2.16.840.1.459154.3.57[id number] 2.16.840.1.519036.3.57[id number] 2.16.840.1.675537.3.57[id number] 2.16.840.1.832993.3.57[id number] 2.16.840.1.899906.3.57[id number] 2.16.840.1.597671.3.579.2.[id number] 2.16.840.1.606403.3.57[id number] 2.16.840.1.535179.3.57[id number] 2.16.840.1.663147.3.57[id number] 2.16.840.1.572135.3.579.2.849298-88-4184Qkqxaee1371587 2.16840.1.806302.3.579.2.085760-74-1720Rmvldzc0245537 2.16840.1.274750.3.57[id number] 2.16.840.1.144388.3.57[id number] 2.16840.1.392376.3.579.[id number] 2.16840.1.086133.3.57[id number] 2.16840.1.684139.3.579.2.544988-78-4421Jewfmjt1621545 2.16.840.1.901528.3.579.2.[id number] 2.16.840.1.816861.3.579.2.546606-40-5790Rgfmrft5133513 2.16840.1.172037.3.579.2.405090-83-3930Ecjejon5409785 2.16840.1.781702.3.579.2.776764-71-2062Wvktnvf4253114 2.16840.1.836520.3.579.[id number] 2.840.1.889120.3.579.2.43253-97-2546Atgiulj316778539 2.840.1.981096.3.579.2.6[id number] 2.840.1.265735.3.579.[id number] 2.840.1.818086.3.579.2.7[id number] 2.840.1.201368.3.579.2.918370-71-0909Esqwdie649005215 2.840.1.214785.3.579.2.781815-90-2039Udymqlm69114400 2.840.1.729415.3.57[id number] 2.840.1.098911.3.579.2.509416-16-3754Spbcelp34631128 2.840.1.634910.3.579.2.967691-78-6115Lergifm34886350 2.840.1.584481.3.579.2.804441-39-5680Ywjzbnc16648011 2.16840.1.862518.3.579.2.034968-52-5377Kwopdlt96105538 2.16840.1.621354.3.579.2.1246 Social History DateTypeDetailFacilityStart: 11-25-2022 End: 95-30-1550Bpuay a smokerNever a smokerNOMS Healthcare Work Phone: Start: 10-03-2022 End: 07-20-3523Domxjma smoking status NHISNever smoked tobaccoNOMS Healthcare Start: 10-03-2022 End: 03-10-4513Ztggcir use and exposureSmokeless tobacco non-userNOMS Healthcare Start: 06-01-2023 End: 63-70-5775Nvlvttv intakeLifetime non-drinker (finding)N[facility] HealthcareStart: 11-25-2022 End: 02-79-7055Hghjaxgfqjv, Afraid, Rape, and Kick questionnaire [HARK][facility] Work Phone: Within the last year, have you been afraid of your partner or ex-partner?NoN[facility]S Healthcare Work Phone: Are you now , , , , never or living with a partner?MarriedNOMS HealthcareHow often to you have a drink containing alcohol?Monthly or lessNOMS HealthcareHow many standard drinks containing alcohol do you have on a typical day?1 or 2NOMS HealthcareHow often do you have 6 or more drinks on 1 occasion?NeverNOMS HealthcareStart: 03-26-2022 End: 31-49-2625Enu hard is it for you to pay for the very basics like food, housing, medical care, and heatingNot hard at allNOMS HealthcareDo you feel stress - tense, restless, nervous, or anxious, or unable to sleep at night because yourmind is troubled all the time - these days [OSQ]Only a littleNOMS Healthcare(I/We) worried whether (my/our) food would run out before (I/we) got money to buy more.Never trueNOMS HealthcareStart: 39-60-0924Djp Assigned At BirthNot on fileNOWI HealthcareStart: 07-05-2024 End: 43-57-8055Pxvultjo to SARS-CoV-2 (event)Not [facility] HospitalStart: 38-93-7252Gqmpwleey beverage intakeEx-drinker (finding) [facility] Work Phone: NEGATED: Highlighted row---[facility] Work Phone: Medical Equipment Procedure CodeEquipment CodeEquipment Original TextEquipment IdentifierDates Screw, Low Profile Hex, 6.5 X 15 Mm Case [id number]: 01-29-2020 Comment on above:Description: Converted from Care Acute. Please see archived information for full log information.Screw, Low Profile Hex, 6.5 X 25 Mm Case [id number]: 20-97-6188Pgkyhuz on above:Description: Converted from Care Acute. Please see archived information for full log information.Head, Femur V40 36mm +2.5mm Biolox Delta Case [id number]: 01-29-2020 Comment on above:Description: Converted from Care Acute. Please see archived information for full log information.Stem, Femur 132d Sz 5 Accolade Ii Case [id number]: 84-16-8584Futtfyp on above:Description: Converted from Care Acute. Please see archived information for full log information.Shell, Trident Ii, Clusterhole, [place] 52e Case [id number]: 32-81-6836Qrmoyci on above:Description: Converted from Care Acute. Please see archived information for full log information.Liners, Poly 36 X 10 D Trid Crossfire E Case [id number]: 01-21-9732Gwjvblm on above:Description: Converted from Care Acute. Please see archived information for full log information. Functional Status TajuSjcsnlofluJtcpzjIijencgg88-05-1995Locabls Health Questionnaire 2 item (PHQ- 2) [Reported][facility] Pximnehfaq87-06-3291Ftadsre Health Questionnaire 2 item (PHQ- 2) [Reported]NOMS Vuukduichl03-60-7579Hadomqe Health Questionnaire 2 item (PHQ- 2) [Reported]NOMS HealthcareNOMS HealthcareNEGATED: Highlighted rowFunctional performanceFunctional status health issues are not documented DiseaseMP-[facility] Work Phone: Mental Status DateAssessmentResultFacilityNEGATED: Highlighted rowCognitive function [Interpretation]Cognitive status health issues are not documented [facility] Work Phone: Clinical Notes 06-01-2023 to 2024 Note Date & ZgykOrgpClrrpvjx01-02-3703 History of Present illness Narrative* Amber Hawley MD - 2024 2:15 PM EDT Images from the original note were not included. Chief Complaint: Chief Complaint Patient presents with Follow-up Mlp, echo results Patient was seen initially on 07/15/2024 for palpitations supraventricular tachycardia congestive heart failure. We ordered a Holter monitor echocardiogram and perfusion imaging study and she presentsfor follow-up. Accompanied by to the office. Subjective [...] INJECTION x7 NERVE BLOCK Left 03/26/2019 T12-L3 AL TOTAL HIP ARTHROPLASTY Left [place] (01-29-2020 to 01-30-2020) RADIOFREQUENCY ABLATION Left 06/25/2019 [...] (NEURONTIN) 300 mg, 2 times daily HYDROcodone-acetaminophen (Gerry) 5-325 mg tablet 1 tablet, Every 4 [...] XL (TOPROL-XL) 50 mg, oral, Every morning nwlvjmjjnbzi-Rt-vpyy-minerals tablet 1 tablet, Daily nortriptyline (PAMELOR) 30 [...] data and diagnostic testing results that occurred afterthe last office visit with me Assessment: 1. Encounter to discuss test results 2. Uses ray walker 3. Palpitations Follow Up In Cardiology metoprolol succinate XL (Toprol-XL) 50 mg 24 hr tablet metoprolol succinate XL (Toprol XL) 100 mg 24 hr tablet magnesium oxide (Mag-Ox) 400 mg (241.3 mg elemental) tablet Holter Or Event Train Engineer 4. Mixed hyperlipidemia simvastatin (Zocor) 10 mg [...] this time. Follow up : 6 months IKatty LPN am scribing for, and in the presence of Dr. Amber Hawley MD, FACC. I, Dr. Amber Hawley MD, FACC, personally performed the services described in the documentation as scribed by Katty Iverson LPN in my presence, and confirm it is both accurate and complete. documented in this [facility] Work Phone: 1(278) 677-745907-18-2025 Instructions* Patient Instructions* Katty Alvarez LPN - 2024 2:15 PM [...] Provided instructions on exercise. documented in this encounter[facility] Work Phone: 1(920) 945-207506-19-2025 Telephone encounter Note* Telephone Encounter - Alpa Bhagat - 10/17/2024 3:12 PM EDT Luma was seen yesterday called stating that her medication was not sent in yet. Please send meds to [facility] [place] [facility] HospitalDqaybtmhyq05-16-6934 Miscellaneous Notes* Telephone Encounter - Alpa Bhagat - 10/17/2024 3:12 PM EDT Luma was seen yesterday called stating that her medication was not sent in yet. Please send meds to [facility] [place] documented in this encounterTwo Rivers Psychiatric HospitalRhqhfggqmu30-50-3591 History of Present illness Narrative* Kamila Pride NP - 10/16/2024 11:30 AM EDT Images from the original note were not included. Subjective Patient ID: Luma Ribeiro is a 78 y.o. female who presents for No chief complaint on file.. Luma presents today for a 2 month follow up for medication refills. Patient states she is feelinggood, she did go see pain management for hip pain, but they told her the pain is from her back. Shewas given an injection on Monday and it is helping with the pain. Pain This is a chronic problem. The current episode started more than 1 year ago. The problem occurs constantly. The problem has been gradually improving since onset. Associated with: Degenerative joint disease. The pain is present in the right hip. The pain is severe. The symptoms are aggravated by anymovement and inactivity. Past treatments include prescription narcotic, [...] tablet calcium carb 600 mg(1,500 mg)-vit D3 400unit-minerals chewable tablet Take by oral route. denosumab (Prolia) 60 MG/ML solution prefilled syringe Inject 1 mL (60 mg) under the skin 1 (one) time for 1 dose 1 mL 0 fexofenadine (Radha) 180 MG tablet Take 1 tablet (180 mg) by mouth Daily as needed (alleriges) 90tablet 3 furosemide (Lasix) 20 MG tablet Take 1 tablet (20 mg) by mouth Daily 90 tablet 3 gabapentin (Neurontin) 300 MG capsule Take 1 capsule (300 mg) by mouth in the morning and 1 capsule(300 mg) before bedtime. 200 capsule 3 meloxicam [...] 3 CAPSULES BY MOUTH AT BEDTIME ONCE [id number] capsule 3 [DISCONTINUED] simvastatin (Zocor) 10 MG [...] INJECTION x7 NERVE BLOCK Left 03/26/2019 T12-L3 AL TOTAL HIP ARTHROPLASTY Left [place] (01-29-2020 to 01-30-2020) RADIOFREQUENCY ABLATION Left 06/25/2019 [...] be seen in our office at least everythree months for monitoring. At each follow up visit I will reassess the patient's need for the medication. Patient is to have this medication prescribed only through this office. Failure to follow the rules and regulations will result in tapering and discontinuation of medications if applicable. Patient verbalized understanding. No follow-ups on file. documented in this encounterTwo Rivers Psychiatric HospitalUbftobulcc06-53-7458 History of Present illness Narrative* Alex Alfredo DPM - 10/10/2024 3:00 PM EDT Patient: Luma Ribeiro : 1945 [...] localized. unspecified site Osteopenia Paroxysmal supraventricular tachycardia ([facility]) Medications: Current Outpatient Medications: albuterol HFA (Ventolin [...] min Stress: No Stress Concern Present (11/25/2022) [employer] - Occupational Stress Questionnaire Feeling of Stress : Only a little Social Connections: Moderately Isolated (11/25/2022) Social Connection and Isolation Panel [NHANES] Frequency of Communication with Friends and Family: More than three times a week Frequency of Social Gatherings with Friends and Family: Once a week Attends Gnosticism Services: Never Active Member of Clubs or [...] 9 Alex Alfredo DPM documented in this encounterTwo Rivers Psychiatric HospitalGhhndiaazm90-65-0172 History of Present illness Narrative* Roc Steele MD - 08/19/2024 11:15 AM EDT Images from the original note were not [...] diagnosed with osteoporosis by bone density scan Patientdenies history of fracture. The cause of osteoporosis [...] tablet calcium carb 600 mg(1,500 mg)-vit D3 400unit-minerals chewable tablet Take by oral route. denosumab (Prolia) 60 MG/ML solution prefilled syringe Inject 1 mL (60 mg) under the skin 1 (one) time for 1 dose 1 mL 0 fexofenadine (Radha) 180 MG tablet Take 1 tablet (180 mg) by mouth Daily as needed (alleriges) 90tablet 3 furosemide (Lasix) 20 MG tablet Take 1 tablet (20 mg) by mouth Daily 90 tablet 3 gabapentin (Neurontin) 300 MG capsule TAKE 1 CAPSULE BY MOUTH TWICE DAILY 200 capsule 3 HYDROcodone-acetaminophen (Gerry) 5-325 MG tablet Take 1 tablet by [...] INJECTION x7 NERVE BLOCK Left 03/26/2019 T12-L3 AL TOTAL HIP ARTHROPLASTY Left [place] (01-29-2020 to 01-30-2020) RADIOFREQUENCY ABLATION Left 06/25/2019 [...] visit: Age-related osteoporosis without current pathological fracture ([facility]) - Prolia injection today. Osteopenia of both hips Chronic cough - Consider ENT referral if it persists. Follow up in about 2 months (around 10/19/2024). documented in this encounterTwo Rivers Psychiatric HospitalMfolqjotgc18-89-2882 History of Present illness Narrative* Alex Alfredo DPM - 08/01/2024 2:30 PM EDT Patient: Luma Ribeiro : 1945 [...] Diagnosis Date Cardiomegaly Diverticulosis 2013 Edema Glaucoma ([facility]) Heart disease, unspecified History of lumbar surgery multiple times HTN (hypertension) ([facility]) Hyperlipidemia ([facility]) Insomnia Lumbago Lumbosacral spondylosis without myelopathy Myalgia, unspecified site Myositis Occlusion and stenosis of unspecified carotid artery without mention of cerebral infarction CARO (obstructive sleep apnea) Osteoarthrosis unspecified wheteher generalized or localized. unspecified site Osteopenia Paroxysmal supraventricular tachycardia ([facility]) Medications: Current Outpatient Medications: ALPRAZolam (Xanax) [...] min Stress: No Stress Concern Present (11/25/2022) [employer] - Occupational Stress Questionnaire Feeling of Stress : Only a little Social Connections: Moderately Isolated (11/25/2022) Social Connection and Isolation Panel [NHANES] Frequency of Communication with Friends and Family: More than three times a week Frequency of Social Gatherings with Friends and Family: Once a week Attends Gnosticism Services: Never Active Member of Clubs or [...] 9 Alex Alfredo DPM documented in this encounterTwo Rivers Psychiatric [id number] History of Present illness Narrative* Kamila Pride NP - 08/01/2024 1:30 PM EDT Images from the original note were not [...] tablet calcium carb 600 mg(1,500 mg)-vit D3 400unit-minerals chewable tablet Take by oral route. furosemide [...] INJECTION x7 NERVE BLOCK Left 03/26/2019 T12-L3 AL TOTAL HIP ARTHROPLASTY Left [place] (01-29-2020 to 01-30-2020) RADIOFREQUENCY ABLATION Left 06/25/2019 [...] mL by mouth 4 (four) times a dayas needed for cough for up to 5 days - albuterol HFA (Ventolin HFA) 90 mcg/act inhaler; Inhale 2 puffs every 4 (four) hours if needed for wheezing or shortness of breath (cough) Use medications as directed. You can also use warm tea with honey, cough drops and lozenges. Lumbosacral spondylosis without myelopathy - HYDROcodone-acetaminophen (Gerry) 5-325 MG tablet; Take 1 tablet by mouth every 4 (four) hours ifneeded for moderate pain or severe pain Medication choice and dosage is appropriate for patient's current medical conditions. Patient will continue to be required to be seen in our office at least every three months for monitoring. At eachfollow up visit I will reassess the patient's [...] directed. Age-related osteoporosis without current pathological fracture ([facility]) - denosumab (Prolia) 60 MG/ML solution prefilled syringe; Inject 1 mL (60 mg) under the skin 1 (one) time for 1 dose Avoid falls as you can fracture. Take calcium with vitamin D. If you get this medication from your insurance, call the office and we can give you the medication No follow-ups on file. documented in this encounterTwo Rivers Psychiatric [id number] NoteNormal sinus rhythm 93 bpm voltage criteria for left ventricular hypertrophy abnormal R wave progression, 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 Compared to EKG from December 2019, left axis deviation loss of lateral R waves were noted in December 2019.[facility] 07-15-2024 History of Present illness Narrative* Amber Hawley MD - 07/15/2024 11:15 AM EDT Images from the original note were not [...] walkers. Subjective : Was hospitalized at [facility] in May 2024. She was told she [...] INJECTION x7 NERVE BLOCK Left 03/26/2019 T12-L3 AL TOTAL HIP ARTHROPLASTY Left [place] (01-29-2020 to 01-30-2020) RADIOFREQUENCY ABLATION Left 06/25/2019 [...] ALPRAZolam (XANAX) 0.25 mg, Nightly PRN HYDROcodone-acetaminophen (Gerry) 5-325 mg tablet 1 tablet, Every 4 [...] data and diagnostic testing results that occurred afterthe last office visit with me May 2024 BUN 15 creatinine 1.04 GFR 55 sodium 137 potassium 4.7 liver enzymes normal GFR was 52in June 2023 Assessment: 1. Encounter to establish care with new doctor ECG 12 Lead 2. Paroxysmal supraventricular tachycardia (CMS-HCC) Follow Up In Cardiology magnesium oxide (Mag-Ox) 400 mg (241.3 mg magnesium) tablet Transthoracic Echo Complete Holter Or Event Train Engineer 3. Abnormal EKG Transthoracic Echo Complete Holter Or Event Train Engineer 4. Lightheadedness Nuclear Stress Test Holter Or Event Train Engineer 5. Chest discomfort Nuclear Stress Test Holter Or Event Train Engineer 6. Palpitations Transthoracic Echo Complete Nuclear Stress Test Holter Or Event Train Engineer 7. Primary hypertension 8. Stenosis of carotid [...] discharge she was started on metoprolol succinate 50mg daily, and she says her palpitations have improved. As far as the supine chest discomfort goes, it could be GI, but given her age and risk factors, CADworkup is prudent moreover her EKG is grossly [...] further questions arise, Sincerely, Amber Hawley MD [facility] IKatty LPN am scribing for, and in the presence of Dr. Amber Hawley MD, [facility]. I, Dr. Amber Hawley MD, [facility], personally performed the services described in the documentation as scribed by Katty Iverson LPN in my presence, and confirm it is both accurate and complete. documented in this [facility] Work Phone: [phone] Instructions* Patient Instructions* Katty Alvarez LPN - 07/15/2024 11:15 AM [...] Provided instructions on exercise. documented in this [facility] Work Phone: [phone]) 856-651403-13-2025 History of Present illness Narrative* Katie Ritter LPN - 07/11/2024 1:00 PM EDT HPI Med Refill Additional comments: Lasix--DM sabas Last edited by Katie Rtiter LPN on 07/11/2024 1:09 PM. * Kamila Pride NP - 07/11/2024 1:00 PM EDT Images from the original note were not [...] tablet calcium carb 600 mg(1,500 mg)-vit D3 400unit-minerals chewable tablet Take by oral route. furosemide [...] Do you have a medical power of finance attorney?: Yes Who is your medical power of finance attorney?: Objective : BP 130/80 Pulse 87 [...] controlled. Continue with current medications and I willcontinue to monitor. Goal BP remains less than [...] Discussed minimizing high carb, high sugar, high sodium,portion control, and processed foods while making healthy [...] palpitations. Advised on relaxation methods to decrease anxietyand depression. Pt offers understanding of treatment plan. [...] All needed testing was ordered. Will continue withyearly Medicare Wellness exams. - Lipid panel; Future - Lipid panel 27. Routine general medical examination at [facility] care facility Reviewed all relevant preventative screenings with the patient in detail. Medicare Wellness form completed and will be scanned into patient's chart. All needed testing was ordered. Will continue withyearly Medicare Wellness exams. No orders of the defined types were placed in this encounter. Electronically signed by Kamila Pride NP on July 11, 2024 documented in this encounterTwo Rivers Psychiatric [id number] History of Present illness Narrative* Kamila Pride NP - 07/03/2024 11:30 AM EST Images from the original note were not [...] 4 weeks ago. The problem has been graduallyworsening. The problem occurs every few hours. Cough [...] tablet calcium carb 600 mg(1,500 mg)-vit D3 400unit-minerals chewable tablet Take by oral route. furosemide [...] INJECTION x7 NERVE BLOCK Left 03/26/2019 T12-L3 AL TOTAL HIP ARTHROPLASTY Left [place] (01-29-2020 to 01-30-2020) RADIOFREQUENCY ABLATION Left 06/25/2019 [...] orders for this visit: Paroxysmal supraventricular tachycardia ([facility]) - Ambulatory referral to Cardiology; Future Awaiting cardiology appointment. She did not follow up with cardiology as she was supposed to when she got out of the hospital. New referral sent as she wants to go to the plant operator that her goes to. Primary insomnia - [...] congestive heart failure, unspecified heart failure type ([facility]) - Ambulatory referral to Cardiology; Future Awaiting cardiology appointment. She did not follow up with cardiology as she was supposed to when she got out of the hospital. New referral sent as she wants to go to the plant operator that her goes to. Stage 3b chronic kidney disease (HCC) ([facility]) - Comprehensive metabolic panel; Future - Magnesium; [...] She has a history of hip replacement onthe right. Will check an xray as she [...] are well lit and that light sources, lampsetc, are close to the room's entrances. Discussed importance of handrails, grab bars, and other assistive devices. Discussed the importance of staying active in a safe way, i.e. walks, water work outs, or [employer]. No follow-ups on file. documented in this encounterTwo Rivers Psychiatric [id number] History of Present illness Narrative* Kamila Pride NP - 06/11/2024 11:00 AM EST Images from the original note were not included. Subjective Patient ID: Luma Ribeiro is a 78 y.o. female who presents for a F/U form an ER visit. Luma presents today for a F/U from an ER visit on 06/09 for a high heart rate. She was having issuewith her cough and a high heart rate of 130, this lasted for 3 days and she called the automobile contract clerk nurse and they advised her to [...] 4 weeks ago. The problem has been graduallyworsening since onset. There has been no fever. Associated symptoms include coughing, headaches andsinus pressure. Past treatments include nothing. The treatment [...] tablet calcium carb 600 mg(1,500 mg)-vit D3 400unit-minerals chewable tablet Take by oral route. furosemide [...] INJECTION x7 NERVE BLOCK Left 03/26/2019 T12-L3 AL TOTAL HIP ARTHROPLASTY Left [place] (01-29-2020 to 01-30-2020) RADIOFREQUENCY ABLATION Left 06/25/2019 [...] to follow up with Dr. Chavez in [place] [facility]. Await his recommendations. She continue on the Metoprolol Acute cough - guaiFENesin-codeine (guaiFENesin AC) 100-10 MG/5ML syrup; Take 5 mL by mouth 4 (four) times a dayas needed for cough for up to 14 days May use cough drops, warm tea with honey and cough syrup for cough. Acute congestive heart failure, unspecified heart failure type (CMS/HCC) - B-type natriuretic peptide; Future This is a chronic medical condition. No changes in treatment are suggested at this time. Pt has hada weight gain and is coughing clear so [...] No follow-ups on file. documented in this encounterTwo Rivers Psychiatric [id number] History of Present illness Narrative* Alex Alfredo, SOPHY - 05/23/2024 2:40 PM EST Patient: Luma Ribeiro : 1945 PCP: Roc [...] Diagnosis Date Cardiomegaly Diverticulosis 2012 Edema Glaucoma ([facility]) Heart disease, unspecified History of lumbar surgery multiple times HTN (hypertension) ([facility]) Hyperlipidemia ([facility]) Insomnia Lumbago Lumbosacral spondylosis without myelopathy Myalgia, unspecified site Myositis Occlusion and stenosis of unspecified carotid artery without mention of cerebral infarction CARO (obstructive sleep apnea) Osteoarthrosis unspecified wheteher generalized or localized. unspecified site Osteopenia Paroxysmal supraventricular tachycardia ([facility]) Medications: Current Outpatient Medications: ALPRAZolam (Xanax) [...] min Stress: No Stress Concern Present (11/25/2022) [employer] - Occupational Stress Questionnaire Feeling of Stress : Only a little Social Connections: Moderately Isolated (11/25/2022) Social Connection and Isolation Panel [NHANES] Frequency of Communication with Friends and Family: More than three times a week Frequency of Social Gatherings with Friends and Family: Once a week Attends Gnosticism Services: Never Active Member of Clubs or [...] 9 Alex Alfredo DPM documented in this encounterTwo Rivers Psychiatric [id number] History of Present illness Narrative* Kamila Pride NP - 05/22/2024 10:00 AM EST Images from the original note were not [...] tablet calcium carb 600 mg(1,500 mg)-vit D3 400unit-minerals chewable tablet Take by oral route. cyclobenzaprine (Flexeril) 10 MG tablet Take 10 mg by mouth 3 (three) times a day as needed for muscle spasms. [] doxycycline (Vibra-Tabs) 100 MG tablet Take 1 tablet (100 mg) by mouth in the morning and1 tablet (100 mg) before bedtime. Do all [...] INJECTION x7 NERVE BLOCK Left 03/26/2019 T12-L3 AL TOTAL HIP ARTHROPLASTY Left [place] (01-29-2020 to 01-30-2020) RADIOFREQUENCY ABLATION Left 06/25/2019 [...] controlled. Continue with current medications and I willcontinue to monitor. Goal BP remains less than 130/80. Hypomagnesemia - Magnesium; Future Pt received replacement in ER. Await lab. Pneumonia of both lungs due to infectious organism, unspecified part of lung Continue Doxycycline until gone. If you start to get more congested or your cough increases after ATB, you need to come back for further treatment. No follow-ups on file. documented in this encounterTwo Rivers Psychiatric [id number] History of Present illness Narrative* Kamila Pride NP - 05/15/2024 11:30 AM EST Images from the original note were not included. Subjective Patient ID: Luma Ribeiro is a 78 y.o. female who presents for A F/U FOR PNEUMONIA, CHF Luma presents today for F/U for pneumonia and CHF. Was admitted to [facility] on 05-12-24.She is feeling weak and SOB still. Home health has not started. Pt would benefit from Nursing, PT/OT, and aide. PT was diagnosed with generalized weakness, CHF, And pneumonia. She continues on Doxycycline. The hospital discharge pt with an order for Lasix prn. Pt educated on when to take a prn lasix. She verbalized understanding. The hospital set up [facility] but we will set pt up with Erik as theyhave a contract with [facility]. She is home bound due [...] tablet calcium carb 600 mg(1,500 mg)-vit D3 400unit-minerals chewable tablet Take by oral route. cyclobenzaprine [...] Take 5 mL by mouth 4 (four) timesa day as needed for cough for up [...] INJECTION x7 NERVE BLOCK Left 03/26/2019 T12-L3 AL TOTAL HIP ARTHROPLASTY Left [place] (01-29-2020 to 01-30-2020) RADIOFREQUENCY ABLATION Left 06/25/2019 [...] No follow-ups on file. documented in this encounterTwo Rivers Psychiatric [id number] History of Present illness Narrative* Kamila Pride NP - 05/07/2024 11:00 AM EST Images from the original note were not included. Subjective Patient ID: Luma Ribeiro is a 78 y.o. female who presents for prescription renewal, for C pap. Luma Presents today for a RX renewal for her C pap. Paperwork was to be sent. URI This is a new problem. The current episode started 1 to 4 weeks ago. The problem has been graduallyworsening. There has been no fever. Associated symptoms [...] tablet calcium carb 600 mg(1,500 mg)-vit D3 400unit-minerals chewable tablet Take by oral route. cyclobenzaprine (Flexeril) 10 MG tablet Take 10 mg by mouth 3 (three) times a day as needed for muscle spasms. furosemide (Lasix) 20 MG tablet Take 1 tablet (20 mg) by mouth Daily for 7 days 7 tablet 0 gabapentin (Neurontin) 300 MG capsule TAKE 1 CAPSULE BY MOUTH TWICE DAILY 200 capsule 3 [] HYDROcodone-acetaminophen (Gerry) 5-325 MG tablet Take 1 tablet by [...] INJECTION x7 NERVE BLOCK Left 03/26/2019 T12-L3 AL TOTAL HIP ARTHROPLASTY Left [place] (01-29-2020 to 01-30-2020) RADIOFREQUENCY ABLATION Left 06/25/2019 [...] Perles prn for cough. Increase water intake, getplenty of rest. Can take Tylenol prn for [...] Discussed minimizing high carb, high sugar, high sodium,portion control, and processed foods while making healthy choice replacements. Additionally discussed recommendations of 30 minutes of aerobic exercise at least 5 days per week, that includes, walking, and chair exercises. . Instructed importance of drinking adequate water consumption (if not on fluid restriction) with minimal sugar and caffiene. No follow-ups on file. documented in this encounterTwo Rivers Psychiatric [id number] Telephone encounter Note* Telephone Encounter - MERARY Pemberton - 04/16/2024 5:16 PM EST OARRS reviewed, Rx sent into patient's pharmacy. [facility] [id number] Miscellaneous Notes* Telephone Encounter - MERARY Pemberton - 04/16/2024 5:16 PM EST OARRS reviewed, Rx sent into patient's pharmacy. documented in this encounterTwo Rivers Psychiatric [id number] History of Present illness Narrative* Kamila Pride NP - 04/03/2024 9:00 AM EST Images from the original note were not [...] worsened by activity. The pain is aggravated bybreathing, deep breathing, coughing, lifting and movement. Treatments tried: Gerry, cough syrup, muscle relaxer. The treatment provided [...] tablet calcium carb 600 mg(1,500 mg)-vit D3 400unit-minerals chewable tablet Take by oral route. cyclobenzaprine (Flexeril) 10 MG tablet Take 10 mg by mouth 3 (three) times a day as needed for muscle spasms. gabapentin (Neurontin) 300 MG capsule TAKE 1 CAPSULE BY MOUTH TWICE DAILY 200 capsule 3 [] HYDROcodone-acetaminophen (Gerry) 5-325 MG tablet Take 1 tablet by [...] MOUTH EVERY 8 HOURS NEEDED Orally Three timesa day as needed for 90 days zolpidem [...] INJECTION x7 NERVE BLOCK Left 03/26/2019 T12-L3 AL TOTAL HIP ARTHROPLASTY Left [place] (01-29-2020 to 01-30-2020) RADIOFREQUENCY ABLATION Left 06/25/2019 [...] breathing. Lumbosacral spondylosis without myelopathy - HYDROcodone-acetaminophen (Gerry) 5-325 MG tablet; Take 1 tablet by mouth every 4 (four) hours ifneeded for severe pain Medication choice and dosage is appropriate for patient's current medical conditions. Patient will continue to be required to be seen in our office at least every three months for monitoring. At eachfollow up visit I will reassess the patient's [...] No follow-ups on file. documented in this [facility]11-07-2024 NoteCarpal tunnel syndrome, left, severe. Progressed substantially when compared to EDX evaluation in 2021. C8 radiculopathy, left, moderate. Progressed when compared to EDX evaluation in 2021Two Rivers Psychiatric [id number] NoteCarpal tunnel syndrome, left, severe. Progressed substantially when compared to EDX evaluation in 2021. C8 radiculopathy, left, moderate. Progressed when compared to EDX evaluation in [address] [place], [place] [id number] History of Present illness Narrative * Jimmy Gibson, SAMANTHA - 03/07/2024 11:00 AM EST Images from the original note were not included. Reason for Appointment: EMG Patient: Luma Ribeiro : 1945 EMG Computer: [employer] Referring Physician: Kamila Pride CNP EMG: PABLO lock installer: Jimmy Gibson RT(R) Office Location: [place] Reason for EMG: c/o numbness/tingling in left hand/forearm especially in 2nd & 3rd digits, weakness in left hand. No hx of DM. Not on blood thinners. Comments: Procedure was explained to the patient who expressed understanding. Patient appeared to have tolerated the test well despite some discomfort due to the nature of the test. documented in this encounterTwo Rivers Psychiatric [id number] History of Present illness Narrative* Kamila Pride NP - 03/05/2024 11:30 AM EST Images from the original note were not included. Subjective Patient ID: Luma Ribeiro is a 78 y.o. female who presents for Follow-up and Hypertension. AND LEFT ARM PAIN /NUMBNESS Luma is in today for a medication follow up on her hydrocodone. States its working well and keepsher moving. Pain medication helps with her pain. Hypertension Patient is here for follow-up of elevated blood pressure. Cardiac symptoms: none. Patient denies chest pain, claudication, exertional chest pressure/discomfort, irregular heart beat, lower extremity edema, near-syncope, orthopnea, palpitations, and paroxysmal nocturnal dyspnea. Cardiovascular risk f actors: advanced age (older than 55 for men, 65 for women), hypertension, and obesity (BMI >= 30kg/m2). 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 cyclobenzaprine (Flexeril) 10 MG tablet Take 10 mg by mouth 3 (three) times a day as needed for muscle spasms. gabapentin (Neurontin) 300 MG capsule TAKE 1 CAPSULE BY MOUTH TWICE DAILY 200 capsule 3 HYDROcodone-acetaminophen (Gerry) 5-325 MG tablet Take 1 tablet by [...] MOUTH EVERY 8 HOURS NEEDED Orally Three timesa day as needed for 90 days zolpidem (Ambien) 10 MG tablet Take 1 tablet (10 mg) by mouth at bedtime 90 tablet 1 [DISCONTINUED] HYDROcodone-acetaminophen (Gerry) 5-325 MG tablet Take 1 tablet by [...] INJECTION x7 NERVE BLOCK Left 03/26/2019 T12-L3 AL TOTAL HIP ARTHROPLASTY Left [place] (01-29-2020 to 01-30-2020) RADIOFREQUENCY ABLATION Left 06/25/2019 [...] by mouth in the morning and 1 capsule(500 mg) in the evening and 1 capsule (500 mg) before bedtime. Do all this for 7 days. Take all of ATB until gone. Drink plenty of fluids. You could eat some yogurt to help prevent diarrhea from the ATB. If there is no improvement, come back to the office for further treatment. Flu vaccine need - Influenza, high-dose seasonal, quadrivalent, PF ([id number]) (Fluzone High Dose [place] 0.7mL dose) [...] No follow-ups on file. documented in this encounterTwo Rivers Psychiatric [id number] Telephone encounter Note* Telephone Encounter - MERARY Pemberton - 02/29/2024 8:50 AM EDT OARRS reviewed, Rx sent into patient's pharmacy. [facility] [id number] Miscellaneous Notes* Telephone Encounter - MERARY Pemberton - 02/29/2024 8:50 AM EDT OARRS reviewed, Rx sent into patient's pharmacy. * Telephone Encounter - Alpa Bhagat - 02/29/2024 8:07 AM EDT Hydrocodone 325 DDM IN [place] She had an appt today for a med follow up with kamila but had to change it due to her not being in.She said she has about 6 pills left. She did reschedule her med follow up for next Monday. documented in this encounterTwo Rivers Psychiatric [id number] Telephone encounter Note* Telephone Encounter - Alpa Bhagat - 02/29/2024 8:07 AM EDT Hydrocodone 325 DDM IN [place] She had an appt today for a med follow up with kamila but had to change it due to her not being in.She said she has about 6 pills left. She did reschedule her med follow up for next Monday. [facility] [id number] Telephone encounter Note* Telephone Encounter - MERARY Pemberton - 01/29/2024 3:20 PM EDT Amlodipine sent [facility] [id number] Miscellaneous Notes* Telephone Encounter - MREARY Pemberton - 01/29/2024 3:20 PM EDT Amlodipine sent documented in this encounterTwo Rivers Psychiatric [id number] History of Present illness Narrative* Alex Alfredo, DPM - 06/15/2023 2:30 PM EST Patient: Luma Ribeiro : 1945 PCP: Roc Steele MD SUBJECTIVE Patient who presents today 15 d s/p permanent nail avulsion to the right hallux Pt states that they have been following all post op instructions and have been taking antibiotic asprescribed. Pt denies n/f/v/c and has negative pain at post op site with negative drainage. Pt presents today for post operative follow up. 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) Heart disease, unspecified History of lumbar surgery multiple times HTN (hypertension) ([facility]) Hyperlipidemia ([facility]) Insomnia Lumbago Lumbosacral spondylosis without myelopathy [...] min Stress: No Stress Concern Present (11/25/2022) [place] [employer] - Occupational Stress Questionnaire Feeling of Stress : Only a little Social Connections: Moderately Isolated (11/25/2022) Social Connection and Isolation Panel [NHANES] Frequency of Communication with Friends and Family: More than three times a week Frequency of Social Gatherings with Friends and Family: Once a week Attends Gnostic[employer] Services: Never Active Member of Clubs or [...] Patient may continue with conservative treatments including soeq-xbd-abxvlux anti- inflammatories and other treatments suggested today. Patient may want to be s cheduled for surgical intervention in the near future. Patient have the right hallux subungual exostectomy with the lateral left hallux partial permanent nail avulsion in the near future Alex Alfredo DPM documented in this encounterTwo [facility] Psychiatric [id number] History of Present illness Narrative* Alex Alfredo DPM - 06/01/2023 3:30 PM EST Patient: Luma Ribeiro : 1945 PCP: Roc [...] has had issues with rubbing on shoe withnegative drainage but states she has had nail [...] Diagnosis Date Cardiomegaly Diverticulosis 2013 Edema Glaucoma ([facility]) Heart disease, unspecified History of lumbar surgery multiple times HTN (hypertension) ([facility]) Hyperlipidemia ([facility]) Insomnia Lumbago Lumbosacral spondylosis without myelopathy [...] min Stress: No Stress Concern Present (11/25/2022) [employer] - Occupational Stress Questionnaire Feeling of Stress : Only a little Social Connections: Moderately Isolated (11/25/2022) Social Connection and Isolation Panel [NHANES] Frequency of Communication with Friends and Family: More than three times a week Frequency of Social Gatherings with Friends and Family: Once a week Attends Gnosticism Services: Never Active Member of Clubs or [...] and the offending nail border removed and 3phenol applications of 30 seconds a peice to nail matrix. Alcohol flush applied and tournicut released with prompt hyperemic response. Patient was given a prescription for an antibiotic Discussed conservative and surgical treatment options for patient today including postoperative time frame and surgical procedure in detail. Patient may continue with conservative treatments including znrb-ljy-oqoaowj anti- inflammatories and other treatments suggested today. Patient may want to be s cheduled for surgical intervention in the near future. Discussed surgical intervention of subungualexostectomy to distal right hallux in near future [...] future Alex Alfredo DPM [facility]* Diagnosis Subungual exostosis of great [...] Morbid (severe) obesity due to excess calories ([facility]) Body mass index (BMI) 45.0-49.9, adult ([facility]) documented in [facility] encounter [facility]* Diagnosis Edema, unspecified type- Primary Pulmonary fibrosis, unspecified (CMS/HCC) Acute congestive heart failure, unspecified heart failure type (CMS/HCC) Generalized weakness Pneumonia of both lungs due to infectious organism, unspecified part of lung documented in this encounter [facility]* Diagnosis Stage 3b chronic kidney disease (HCC) (CMS/HCC)- Primary Benign essential hypertension ([facility]/HCC) Essential hypertension, benign Hypomagnesemia Disorders of magnesium [...] congestive heart failure, unspecified heart failure type ([facility]/HCC) Acute non-recurrent pansinusitis documented in this encounter [facility]* Diagnosis Paroxysmal supraventricular tachycardia ([facility])- Primary Paroxysmal supraventricular tachycardia Primary insomnia Persistent disorder of initiating or maintaining sleep Acute congestive heart failure, unspecified heart failure type (CMS/HCC) Stage 3b chronic kidney disease (HCC) (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) Vitamin D deficiency Anxiety Anxiety state, unspecified Decreased estrogen level Difficulty walking Difficulty in walking Localized edema Edema Hyperlipidemia, unspecified hyperlipidemia type ([facility]) 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 Acute low back pain without sciatica, unspecified back pain laterality Recurrent falls Medicare annual wellness visit, subsequent Routine general medical examination at health care facility Routine general medical examination at a health care facility Chronic congestive heart failure, unspecified heart failure type ([facility]) documented in this encounter [facility]* Diagnosis Encounter to establish care with new doctor Paroxysmal supraventricular tachycardia ([facility]) Paroxysmal supraventricular tachycardia Abnormal EKG Nonspecific [...] Never smoked cigarettes documented in this encounter [facility] Work Phone: Evaluation note* Diagnosis Pain due to onychomycosis of toenails of both feet- Primary documented in [facility]* Diagnosis SOB (shortness of breath)- Primary Shortness of breath Chronic cough Cough Lumbosacral spondylosis without myelopathy Seasonal allergic rhinitis, unspecified trigger Age-related osteoporosis without current pathological fracture ([facility]) documented in this encounter [facility]* Diagnosis Age-related osteoporosis without current pathological fracture ([facility])- Primary Osteopenia of both hips Chronic cough Cough documented in this encounter [facility] HealthcareEvaluation [facility]* Diagnosis Lightheadedness Dizziness and giddiness Chest discomfort Other chest pain Palpitations Mixed hyperlipidemia documented in this encounter [facility] Work Phone: Evaluation note* Diagnosis Paroxysmal supraventricular tachycardia Abnormal EKG Nonspecific abnormal electrocardiogram (ECG) (EKG) Palpitations documented in this encounter [facility] Work Phone: Evaluation note* Diagnosis Pain due to onychomycosis of toenails of both feet- Primary documented in this encounter [facility]* Diagnosis Acute low back pain without sciatica, unspecified back pain laterality- Primary documented in this encounter [facility]* Diagnosis Lumbosacral spondylosis without myelopathy documented in this encounter [facility]* Diagnosis Encounter to discuss test results- Primary Other specified counseling Uses roller walker Palpitations Mixed hyperlipidemia Chest discomfort Other chest pain CARO on CPAP Paroxysmal supraventricular tachycardia Never smoked cigarettes Body mass index (BMI) 40.0-44.9, adult (Multi) documented in this encounter [facility] Work Phone: History of Present illness NarrativeLuma is a 75-year-old female patient of Dr. Bird who is here for ultrasound-guided right intraarticular shoulder injection. She has a history of pain and discomfort. She was seen and evaluated and referred to me for first lifetime intraarticular shoulder injection, which the patient accepts.-[facility] Work Phone: History of Present illness Narrative* [...] was under the care of Dr. Bonifacio Brid for her right hip. 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 Distal pulses and sensation are intact. Limited forward flexion to about 25 degrees lateral abduction to about 15 unable to perform any external rotation but internal he can get to the small of her back. Herexam does not allow for much of a true Neer's Shelby or Kensing[place]'s test. * Diagnostics: See dictated report from today, previous outside CT scan report of the humerus reviewed, and is available in the [facility] chart. * Procedure: None * Assessment: Chronic [...] the patient's CT scan report reviewed in [facility] chart Other than the anterior medial dislocation [...] grammatical areas may persist related to the [employer] software * Taniya Al MD * Office: * . -[facility] Work Phone: History of Present illness Narrative* [...] Diagnosis Date Cardiomegaly Diverticulosis 2013 Edema Glaucoma ([facility]) Heart disease, unspecified History of lumbar surgery multiple times HTN (hypertension) ([facility]) Hyperlipidemia ([facility]) Insomnia Lumbago Lumbosacral spondylosis without myelopathy Myalgia, unspecified site Myositis Occlusion and stenosis of unspecified carotid artery without mention of cerebral infarction CARO (obstructive sleep apnea) Osteoarthrosis unspecified wheteher generalized or localized. unspecified site Osteopenia Paroxysmal supraventricular tachycardia ([facility]) Medications: Current Outpatient Medications: ALPRAZolam (Xanax) [...] min Stress: No Stress Concern Present (11/25/2022) [place] [employer] - Occupational Stress Questionnaire Feeling of Stress : Only a little Social Connections: Moderately Isolated (11/25/2022) Social Connection and Isolation Panel [NHANES] Frequency of Communication with Friends and Family: More than three times a week Frequency of Social Gatherings with Friends and Family: Once a week Attends Gnosticism Services: Never Active Member of Clubs or [...] 9 Alex Alfredo DPM documented in this encounter[facility] HealthcareReason for visit Narrative* Other Medical (Routine) - ClosedSpecialtyDiagnoses / ProceduresReferred By Contact Referred To ContactNeurology Diagnoses Numbness of hand Procedures AL OFFICE/OUTPATIENT NEW HIGH MDM 60 MINUTES Kamila Pride, BUNDLE CUTTER [address] [facility] [address] [place] [address] Phone: tel: fax: Waqas Dugan DO [address] [place] [address] Phone: tel: fax: Referral IDStatusReasonStart DateExpiration DateVisits RequestedVisits [id number] Perform Procedure [facility] Narrative* Cardiac Stress Testing (Routine) - AuthorizedSpecialtyDiagnoses / ProceduresReferred By ContactReferred To ContactRadiology Diagnoses Lightheadedness Chest discomfort Palpitations Mixed hyperlipidemia Procedures Nuclear Stress Test CHG MYOCARDIAL SPECT MULTIPLE STUDIES Amber Hawley MD [address] [place] [address] [address] [place] [address] Phone: tel: fax: Referral IDStatusReasonStart DateExpiration DateVisits RequestedVisits [id number]/17/20253/17/[id number] [facility] Work Phone: Retjbh for visit Narrative* Cardiac Stress Testing (Routine) - AuthorizedSpecialtyDiagnoses / ProceduresReferred By Contact Referred To ContactRadiology Diagnoses Lightheadedness Chest discomfort Palpitations Mixed hyperlipidemia Procedures Nuclear Stress Test CHG MYOCARDIAL SPECT MULTIPLE STUDIES Amber Hawley MD [address] [address] Phone: tel: fax: Referral IDStatusReasonStart DateExpiration DateVisits RequestedVisits [id number]/17/20253/17/[id number] [facility] Work Phone: reason for visit Narrative* CV Imaging (Routine) - AuthorizedSpecialtyDiagnoses / ProceduresReferred By ContactReferred To ContactCardiology Diagnoses Paroxysmal supraventricular tachycardia Abnormal EKG Palpitations Procedures Transthoracic Echo Complete AL ECHO TTHRC R-T 2D W/WOM-MODE COMPL SPEC&COLR D Amber Hawley MD [address] [facility] [address] [place] [address] Phone: tel: fax: Referral IDSEduardo DateExpiration DateVisits RequestedVisits [id number] Perform Procedure [facility] Work Phone: Chief Complaint * New problem * Right shoulder pain MP Refer : RT shoulder ultra sound guided injection* Right shoulder pain, here for injection. 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 [employer]ricing Analyst DATE CREATED AUTHOR AUTHOR'S ORGANIZ ATION 10/09/2022 [facility] DATE CREATED AUTHOR AUTHOR'S ORGANIZ ATION 10/09/2022 [employer] DATE CREATED AUTHOR AUTHOR'S ORGANIZ ATION 05/01/2024 [facility] DATE CREATED AUTHOR AUTHOR'S ORGANIZ ATION 07/28/2024 [facility] DATE CREATED AUTHOR AUTHOR'S ORGANIZ ATION 10/19/2024 [facility] DATE CREATED AUTHOR AUTHOR'S ORGANIZ ATION 11/16/2024 [facility] DATE CREATED AUTHOR AUTHOR'S ORGANIZ ATION 11/22/2024 [facility] DATE CREATED AUTHOR AUTHOR'S ORGANIZ ATION 11/23/2024 [facility] Reason for Visit (unrecogniz ed section and content) ReasonCommentsIngrown ToenailRt ingrownReasonCommentsIngrown ToenailF/U ingrown ReasonCommentsToenail CareNon DM NailsReasonOnset DateCommentsMed Refill 4ReasonCommentsFollow-upHypertensionReasonCommentsFall@ weeks ago pt fell and hit her walker going up steps.ReasonCommentsMed RefillReasonComments Toenail CareNon dm nail careReasonCommentsMedicare Annual Wellness Visit SubsequentMed RefillLasix--DM clydeReasonCommentsFollow-upNew Patient for Supraventricular tachycardia/Congestive heart failure.SpecialtyDiagnoses / ProceduresReferred By ContactReferred To Contact Diagnoses Encounter to establish care with new doctor Procedures ECG 12 Lead Amber Hawley MD [address] [place] [address] Phone: tel: fax: Referral IDStatusReasonStart DateExpiration DateVisits RequestedVisits [id number]/17/20253/17/067405KtmdduHlgmsoaipeziki injection Here for injection billed and shipped from [facility] rxOsteoporosisReasonComments Toenail CareNon dm naiil careReasonOnset DateCommentsMed Vyertn9910/16/2024Reason CommentsFollow-upMlp, echo resultsSpecialtyDiagnoses / ProceduresReferred By ContactReferred To ContactCardiology Diagnoses Paroxysmal supraventricular tachycardia Procedures Follow Up In Cardiology Amber Hawley MD [address] [place] [address] Phone: tel: fax: Amber Hawley MD [address] [place] [address] Phone: tel: fax: Referral IDStatusReasonStart DateExpiration DateVisits RequestedVisits [id number]/17/20253/17/202611 Care Teams (unrecognized sec tion and content) Team MemberRelationshipSpecialtyStart DateEnd Date Roc Steele MD [address] [place] [address] PCP - [facility]09/22/22 Roc Steele MD [address] [place] [address] PCP - [facility]09/28/22Team MemberRelationshipSpecialtyStart Date End Date Roc Steele MD [address] [place] [address] [facility]09/22/22 Roc Steele MD [address] [place] [address] PCP - [facility]09/28/22Team MemberRelationshipSpecialtyStart Date End Date Roc Steele MD [address] [place] [address] [facility] - [facility]09/22/22 Roc Steele MD [address] [place] [address] PCP - [facility]09/28/22Team MemberRelationshipSpecialtyStart Date End Date Roc Steele MD [address] [place] [address] PCP - [facility]09/28/22 Roc Steele MD [address] [place] [address] [facility]08/30/23Team MemberRelationshipSpecialtyStart DateEnd Date Roc Steele MD [address] [place] [address] PCP - [facility]09/28/22 Roc Steele MD [address] [place] [address] [facility]08/30/23Team MemberRelationshipSpecialtyStart DateEnd Date Roc Steele MD [address] [place] [address] PCP - [facility]09/28/22 Roc Steele MD [address] [place] [address] [facility]08/30/23Team MemberRelationshipSpecialtyStart DateEnd Date Roc Steele MD [address] [place] [address] PCP - [facility]09/28/22 Roc Steele MD [address] [place] [address] [facility]08/30/23Team MemberRelationshipSpecialtyStart DateEnd Date Roc Steele MD [address] [place] [address] PCP - [facility]09/28/22 Roc Steele MD [address] [place] [address] PCP - [facility]08/30/23Team MemberRelationshipSpecialtyStart DateEnd Date Roc Steele MD [address] [place] [address] PCP - GeneralInternal Medicine09/28/22 oRc Steele MD [address] [place] [address] P[facility] - [facility]08/30/23Team MemberRelationshipSpecialtyStart DateEnd Date Roc Steele MD [address] [place] [address] [facility]/28/22 Roc Steele MD [address] [place] [address] PCP - [facility]08/30/23 Waqas Dugan DO [address] [place] [address] Referring JksbethucHvcwjklsw09/7/24Team MemberRelationshipSpecialtyStart DateEnd Date Roc Steele MD [address] [place] [address] [facility] - [facility]09/28/22 Roc Steele MD [address] [place] [address] PCP - [facility] Re[facility]08/30/23 Waqas Dugan DO [address] [place] [address] Referring ZnhqcfjtlNvfvzqpyy33/7/24Team MemberRelationshipSpecialtyStart DateEnd Date Roc Steele MD [address] [place] [address] PCP - GeneralInternal Medicine09/28/22 Roc Steele MD [address] [place] [address] PCP - [facility]08/30/23 Waqas Dugan DO [address] [place] [address] Referring HnukoucdkVojxqbcta02/7/24Team MemberRelationshipSpecialtyStart DateEnd Date Roc Steele MD [address] [place] [address] PCP - GeneralInternal Medicine09/28/22 Roc Steele MD [address] [place] [address] PCP - [facility]08/30/23 Waqas Dugan DO [address] [place] [address] Referring FsywmljznCghlyehpi24/7/24Team MemberRelationshipSpecialtyStart DateEnd Date Roc Steele MD [address] [place] [address] PCP - GeneralInternal Medicine09/28/22 Roc Steele MD [address] [place] [address] PCP - [facility]08/30/23 Waqas Dugan DO [address] [place], [place] [address] Referring QlzypdzhnOcezvlrmo09/7/24Team MemberRelationshipSpecialtyStart DateEnd Date Roc Steele MD [address] [place] [address] PCP - GeneralInternal Medicine09/28/22 Roc Steele MD [address] [place] [address] PCP - [facility]08/30/23Team MemberRelationshipSpecialtyStart DateEnd Date Roc Steele MD [address] [place] [address] PCP - GeneralInternal Medicine09/28/22 Roc Steele MD [address] [place] [address] PCP - [facility]08/30/23 Waqas Dugan DO [address] [place] [address] Referring IywenwmwxKadhhgbez61/7/24Team MemberRelationshipSpecialtyStart DateEnd Date Roc Steele MD [address] [place] [address] PCP - GeneralInternal Medicine09/28/22 Roc Steele MD [address] [place] [address] PCP - [facility]08/30/23 Waqas Dugan DO [address] [place] [address] Referring MrkukwpkaJxvkhbpek87/7/24Team MemberRelationshipSpecialtyStart DateEnd Date Roc Steele MD [address] [place] [address] PCP - GeneralInternal Medicine09/28/22 Roc Steele MD [address] [place] [address] PCP - [facility]08/30/23 Waqas Dugan DO [address] [place] [address] Referring QlldfyqrjJwccfjdle03/7/24Team MemberRelationshipSpecialtyStart DateEnd Date Roc Steele MD [address] [place] [address] PCP - GeneralInternal Medicine09/28/22 Roc Steele MD [address] [place] [address] PCP - [facility]08/30/23 Waqas Dugan DO [address] [place] [address] Referring YyadrgaqoUxlvjuowh78/7/24Team MemberRelationshipSpecialtyStart DateEnd Date Roc Steele MD [address] [place] [address] PCP - GeneralInternal Medicine09/28/22 Roc Steele MD [address] [place] [address] PCP - [facility]08/30/23 Waqas Dugan DO [address] [place] [address] Referring TpcvdtbhuEcgfmjnqe98/7/24Team MemberRelationshipSpecialtyStart DateEnd Date Roc Steele MD [address] [place] [address] PCP - [facility]09/28/22 Roc Steele MD [address] [place] [address] PCP - [facility]08/30/23 Waqas Dugan DO [address] [place] [address] Referring FtqbkbuzyHyqrgehqd90/7/24Team MemberRelationshipSpecialtyStart DateEnd Date Roc Steele MD [address] [place] [address] PCP - [facility]Hon[facility] Hospital[facility]09/28/22 Roc Steele MD [address] [place] [address] PCP - [facility]08/30/23 Waqas Dugan DO [address] [place] [address] Referring ZmgqcyotfIqzlklqyd54/7/24Team MemberRelationshipSpecialtyStart DateEnd Date Roc Steele MD [address] [place] [address] PCP - GeneralInternal Medicine09/28/22 Roc Steele MD [address] [place] [address] PCP - [facility]08/30/23 Waqas Dugan DO [address] [place] [address] Referring StdapcnqlYqpxxbjex86/7/24 Raya Holt, CARMEN Clinical [facility]ocateFaboston [facility] Medicine06/07/24Team MemberRelationshipSpecialtyStart Date End Date Roc Steele MD [address] [place] [address] PCP - GeneralInternal Medicine09/28/22 Roc Steele MD [address] [place] [address] PCP - [facility]08/30/23 Waqas Dugan DO [address] [place] [address] Referring NwsjcmuecNlfwkraxk14/7/24 Raya Hlot RN Clinical [facility]Fab[facility] Medicine06/07/24Team MemberRelationshipSpecialtyStart Date End Date Roc Steele MD [address] [place] [address] PCP - GeneralInternal Medicine09/28/22 Roc Steele MD [address] [place] [address] PCP - [facility]08/30/23 Waqas Dugan DO [address] [place] [address] Referring AbrtymnotVypgkzlxc06/7/24 Raya Holt, CARMEN Clinical [facility] Medicine06/07/24Team MemberRelationshipSpecialtyStart Date End Date Roc Steele MD [address] [place] [address] PCP - GeneralInternal Medicine09/28/22 Roc Steele MD [address] [place] [address] PCP - [facility]08/30/23 Waqas Dugan DO [address] [place] [address] Referring StcfkusfmQywwltyho91/7/24 Raya Holt, CARMEN Clinical [facility] Medicine06/07/24Team MemberRelationshipSpecialtyStart Date End Date Roc Steele MD [address] [place] [address] PCP - GeneralInternal Medicine09/28/22 Roc Steele MD [address] [place] [address] PCP - ACO Reach08/30/23 Waqas Dugan DO [address] [place] [address] Referring OkrfwjlmdLifmqgdks26/7/24 Raya Holt, RN Clinical AdvocateFaokly Medicine06/07/24Team MemberRelationshipSpecialtyStart Date End Date Roc Steele MD [address] [place] [address] PCP - General10/04/22Team MemberRelationshipSpecialtyStart DateEnd Date Roc Steele MD [address] [place] [address] PCP - GeneralInternal Medicine09/28/22 Roc Steele MD [address] [place] [address] PCP - ACO Reach08/30/23 Waqas Dugan DO [address] [place] [address] Referring PwmksbijfPlqfsszvn13/7/24 Gladis Laird LPN 07/19/24Team MemberRelationshipSpecialtyStart DateEnd Date Roc Steele MD [address] [place] [address] PCP - GeneralInternal Medicine09/28/22 Roc Steele MD [address] [place] [address] PCP - ACO Reach08/30/23 Waqas Dugan DO [address] [place] [address] Referring TmiwhyuahHijmbcasz80/7/24 Gladis Laird LPN 07/19/24Team MemberRelationshipSpecialtyStart DateEnd Date Roc Steele MD [address] [place] [address] PCP - GeneralInternal Medicine09/28/22 Roc Steele MD [address] [place] [address] PCP - ACO Reach08/30/23 Waqas Dugan DO [address] [place] [address] Referring QhjwmqtxdSmkkfmnoz76/7/24 Gladis Laird [facility] 07/19/24Team MemberRelationshipSpecialtyStart DateEnd Date Roc Steele MD [address] [place] [address] PCP - [facility]Honorhealth Rehabilitation Hospitalnal Medicine09/28/22 Roc Steele MD [address] [place] [address] PCP - ACO Reach08/30/23 Waqas Dugan DO [address] [place] [address] Referring PydlpwqadJnppduhyx49/7/24 Gladis Laird [facility] 07/19/24Team MemberRelationshipSpecialtyStart DateEnd Date Roc Steele MD [address] [place] [address] PCP - GeneralInternal Medicine09/28/22 Roc Steele MD [address] [place] [address] PCP - ACO Reach08/30/23 Waqas Dugan DO [address] [place] [address] Referring NepbxvtvrTurrxqqqz81/7/24 Gladis Laird, VICE PRESIDENT OF INSTRUCTION 07/19/24Team MemberRelationshipSpecialtyStart DateEnd Date Roc Steele MD [address] [place] [address] PCP - General10/04/22Team MemberRelationshipSpecialtyStart DateEnd Date Roc Steele MD [address] [place] [address] PCP - General10/04/22Team MemberRelationshipSpecialtyStart DateEnd Date Roc Steele MD [address] [place] [address] PCP - General10/04/22Team MemberRelationshipSpecialtyStart DateEnd Date Roc Steele MD [address] [place] [address] PCP - GeneralInternal Medicine09/28/22 Roc Steele MD [address] [place] [address] PCP - ACO Reach08/30/23 Waqas Dugan DO [address] [place] [address] Referring RvauufagmRvwjipeyn30/7/24 Gladis Laird, VICE PRESIDENT OF INSTRUCTION 07/19/24Team MemberRelationshipSpecialtyStart DateEnd Date Roc Steele MD [address] [place] [address] PCP - GeneralInternal Medicine09/28/22 Roc Steele MD [address] [place] [address] PCP - ACO Reach08/30/23 Waqas Dugan DO [address] [place] [address] Referring DbskyawwuFpmoumivt42/7/24 Gladis Laird LPN 07/19/24Team MemberRelationshipSpecialtyStart DateEnd Date Roc Steele MD [address] [place] [address] PCP - GeneralInternal Medicine09/28/22 Roc Steele MD [address] [place] [address] PCP - ACO Reach08/30/23 Waqas Dugan DO [address] [place] [address] Referring BiifgygvzTfqhhlqqg50/7/24 Gladis Laird LPN [address] [place] [address] 07/19/24Team MemberRelationshipSpecialtyStart DateEnd Date Roc Steele MD [address] [place] [address] PCP - GeneralInternal Medicine09/28/22 Roc Steele MD [address] [place] [address] PCP - ACO Reach08/30/23 Waqas Dugan DO [address] [place] [address] Referring EhdnldksnKsblkrvtr63/7/24 Gladis Laird LPN [address] [place] [address] 07/19/24Team MemberRelationshipSpecialtyStart DateEnd Date Roc Steele MD [address] [place] [address] PCP - GeneralInternal Medicine09/28/22 Roc Steele MD [address] [place] [address] PCP - ACO Reach08/30/23 Waqas Dugan DO [address] [place] [address] Referring XvkgptrfuCmsgsrvqm61/7/24 Gladis Laird LPN [address] [place] [address] 07/19/24Team MemberRelationshipSpecialtyStart DateEnd Date Roc Steele MD [address] [place] [address] PCP - General10/04/22Team MemberRelationshipSpecialtyStart DateEnd Date Roc Steele MD [address] [place] [address] PCP - GeneralInternal Medicine09/28/22 Roc Steele MD [address] [place] [address] PCP - ACO Reach08/30/23 Waqas Dugan DO [address] [place] [address] Referring TphztudfpSqnxqmrvr00/7/24 Gladis Laird LPN [address] [facility] [address] [place] [address] 07/19/24Team MemberRelationshipSpecialtyStart DateEnd Date Roc Steele MD [address] [facility] [address] [place] [address] PCP - ACO Reach09/22/ Roc Steele MD [address] [facility] [address] [place] [address] PCP - GeneralHonorhealth Rehabilitation Hospitalnal Medicine09/28/22 Roc Steele MD [address] [facility] [address] [place] [address] PCP - ACO Reach08/30/23 Waqas Dugan DO [address] [place] [address] Referring UzrdkdhlbIixlqamom53/7/24 Raya Holt, CARMEN [address] [place] [address] Clinical AdvocateFamily Medicine Gladis Laird LPN [address] [facility] [address] [place] [address] 07/19/24 FOR RECORDS PERTAINING TO PATIENTS WHO [...] BE BASED ON THE PRIMARY CLINICAL RECORDS. [facility] [employer] [facility]. provides no warranty or guarantee of the accuracy or completeness of information in this document.
--- OUTSIDE RECORDS SUMMARY | 2025-03-27 13:37 | XMS_ITS | Clinical Summary ---
Author Organization [facility] Address [address] [place] [address], [address] [place] [address] Care Team Providers Care Elementary Tutor Name Role Phone Unavailable Primary Care Provider Unavailabl e Social History Tobacco UseTypesPacks/DayYears UsedDateSmoking Tobacco: Never Assessed CommentsUnknownSex and Gender InformationValueDate RecordedSex Assigned at Not on fileLegal UpdDwvkej23/10/2013 4:42 PM ESTGender IdentityNot on fileSexual OrientationNot on file Plan of Treatment Not on file
[2025-03-27 13:47] LABS: Glucose Urine UA NEGATIVE (NEGATIVE)
--- NOTE | 2025-03-27 13:51 | ED.GENADUL1 ---
HPI HPI - General Adult General Chief complaint: Head Injury Stated complaint: FALL Time Seen by Provider: 03/27/25 13:18 Source: patient Mode of arrival: ambulance Limitations: no limitations History of Present Illness HPI narrative: 79-year-old female presented to the emergency department for an injury to the left side of her head. She got dizzy in her kitchen and she fell and she hit the left side of her head. No LOC. She also complains of some pain in the left hip. She was placed in a c-collar and transported here by paramedics. No LOC or laceration or vomiting. She has been having these dizzy episodes and is scheduled to see her physician soon for further workup. Workup has already been started. Related Data Home Medications ?Medication ?Instructions ?Recorded ?Confirmed simvastatin 10 mg tablet 10 mg PO DAILY 12/01/22 03/27/25 fexofenadine 180 mg tablet 180 mg PO DAILY 12/26/24 03/27/25 (Radha Allergy) gabapentin 300 mg capsule 300 mg PO BID 12/26/24 03/27/25 magnesium oxide 400 mg (241.3 mg 400 mg PO DAILY 12/26/24 03/27/25 magnesium) tablet metoprolol succinate 100 mg 100 mg PO DAILY 12/26/24 03/27/25 tablet,extended release 24 hr isosorbide mononitrate 30 mg 30 mg PO DAILY 12/28/24 03/27/25 tablet,extended release 24 hr hydralazine 25 mg tablet 25 mg PO DAILY 03/27/25 03/27/25 hydrocodone 5 mg-acetaminophen 325 1 tab PO Q4H PRN pain 03/27/25 03/27/25 mg tablet meloxicam 7.5 mg tablet 7.5 mg PO DAILY 03/27/25 03/27/25 Previous Rx's ?Medication ?Instructions ?Recorded acetaminophen 325 mg tablet 650 mg (2 x 325 mg) PO Q6H PRN 12/29/24 (Tylenol) Pain #0 tabs alprazolam 0.25 mg tablet 0.25 mg PO DAILY PRN anxiety #5 12/29/24 tabs cholecalciferol (vitamin D3) 50 50 mcg PO DAILY #30 tabs 12/29/24 mcg (2,000 unit) tablet (Vitamin D3) docusate sodium 100 mg capsule 100 mg PO BID PRN Constipation #0 12/29/24 caps sennosides 8.6 mg-docusate sodium 1 tab-cap PO QD PRN Constipation 12/29/24 50 mg tablet (Senna Plus) #0 tabs tizanidine 4 mg tablet 2 mg (1/2 x 4 mg) PO Q8H PRN 12/29/24 Muscle spasm #0 tabs Allergies Allergy/AdvReac Type Severity Reaction Status Date / Time clarithromycin Allergy Severe Rash Verified 01/01/25 09:20 moxifloxacin (From Avelox) Allergy Severe tongue Verified 01/01/25 09:20 swelling Sulfa (Sulfonamide Allergy Unknown Unknown Verified 01/01/25 09:20 Antibiotics) ciprofloxacin (From Cipro) Allergy Rash Verified 01/01/25 09:20 Opioid HPI Opioid Management Most Recent Opioid Data: Last Pain Scale 8 Today, 13:21 Last Pain Intensity 2 12/27/24, 18:01 Last ORT Total Score 0 12/26/24, 17:09 Last ORT Risk Category Low Risk 12/26/24, 17:09 Review of Systems ROS Narrative A ten point review of systems is negative except as noted above. [facility] Medical History Benign essential hypertension ?I10 - Essential (primary) hypertension (ICD-10) Chronic heart failure with preserved ejection fraction (HFpEF) ?I50.32 - Chronic diastolic (congestive) heart failure (ICD-10) Generalized weakness ?R53.1 - Weakness (ICD-10) Fall ?W19.XXXA - Unspecified fall, initial encounter (ICD-10) Pulmonary edema ?J81.1 - Chronic pulmonary edema (ICD-10) Closed head injury ?S09.90XA - Unspecified injury of head, initial encounter (ICD-10) Contusion of right knee ?S80.01XA - Contusion of right knee, initial encounter (ICD-10) Abrasion of elbow, right ?S50.311A - Abrasion of right elbow, initial encounter (ICD-10) Pneumonia ?J18.9 - Pneumonia, unspecified organism (ICD-10) Acute CHF (congestive heart failure) ?I50.9 - Heart failure, unspecified (ICD-10) Acute kidney injury ?N17.9 - Acute kidney failure, unspecified (ICD-10) Community acquired pneumonia ?J18.9 - Pneumonia, unspecified organism (ICD-10) GERD without esophagitis ?K21.9 - Gastro-esophageal reflux disease without esophagitis (ICD-10) Lump of left breast ?N63.20 - Unspecified lump in the left breast, unspecified quadrant (ICD-10) High cholesterol ?E78.00 - Pure hypercholesterolemia, unspecified (ICD-10) High blood pressure ?I10 - Essential (primary) hypertension (ICD-10) Anxiety ?F41.9 - Anxiety disorder, unspecified (ICD-10) Macular degeneration ?H35.30 - Unspecified macular degeneration (ICD-10) Degenerative disc disease Fibromyalgia ?M79.7 - Fibromyalgia (ICD-10) Right shoulder pain ?M25.511 - Pain in right shoulder (ICD-10) Sleep apnea ?G47.30 - Sleep apnea, unspecified (ICD-10) Surgical History Carpal tunnel syndrome, left ?G56.02 - Carpal tunnel syndrome, left upper limb (ICD-10) History of arthroplasty of right ankle ?Z96.661 - Presence of right artificial ankle joint (ICD-10) History of bilateral knee replacement ?Z96.653 - Presence of artificial knee joint, bilateral (ICD-10) History of right hip replacement ?Z96.641 - Presence of right artificial hip joint (ICD-10) Family History Mother Family history of CHF (congestive heart failure) Sister Family history of CHF (congestive heart failure) Son Family history of cancer Family history of diabetes mellitus Family history of hypertension Social History Within the past year, how often did you have a drink containing alcohol: never Score interpretation: A score less than 3 is consistent with normal alcohol consumption. Smoking status: Never smoker Non-prescribed substance use: denies use Previous occupational history: retired Highest level of school completed/degree received: GED or equivalent Are you now , , , , never or living with a partner: In a typical week, how many times do you talk on the telephone with family, friends, or neighbors: 3 or more times per week How often do you get together with friends or relatives: 3 or more times per week How often do you attend roman catholic or mormon services: never Little interest or pleasure in doing things: not at all Feeling down, depressed, or hopeless: not at all Feel stressed/tense/nervous/anxious/difficulty sleeping: not at all Do you think of yourself as: straight/heterosexual Gender Identity: female Exam Narrative Exam Narrative: Nurses note and vital signs reviewed General:The patient appears cute distress. C-collar in place. Skin:Warm, dry, no pallor noted.There is no rash noted. Head:Normocephalic, she may have a small hematoma on the left side of her scalp Eye: Normal conjunctiva, no drainage Ears, Nose, Mouth, and Throat: oral mucosa is moist. Nares patent. Cardiovascular:Regular Rate and Rhythm Respiratory:Patient is in no distress, no accessory muscle use, lungs are clear to auscultation, no wheezing, rales or rhonchi heard no tenderness along the chest wall GI: Nontender including the left side of her abdomen Musculoskeletal: Hips have good active range of motion. She seems to have some mild palpable discomfort in the left hip area but there is no bruising or abrasions. Neurological: Awake and alert Psychiatric:Cooperative Constitutional Vital Signs, click to edit/add: Last Vital Signs Temp 97.8 F 03/27/25 13:21 Pulse 72 03/27/25 13:21 Resp 20 03/27/25 13:21 BP 190/92 H 03/27/25 13:21 Pulse Ox 96 03/27/25 13:21 O2 Del Method Room Air 03/27/25 13:21 Course Vital Signs Vital signs: Vital Signs Temperature 97.8 F 03/27/25 13:21 Pulse Rate 72 03/27/25 13:21 Respiratory Rate 20 03/27/25 13:21 Blood Pressure 190/92 H 03/27/25 13:21 Pulse Oximetry 96 03/27/25 13:21 Oxygen Delivery Method Room Air 03/27/25 13:21 Temperature 97.8 F 03/27/25 13:21 Pulse Rate 72 03/27/25 13:21 Respiratory Rate 20 03/27/25 13:21 Blood Pressure 190/92 H 03/27/25 13:21 Pulse Oximetry 96 03/27/25 13:21 Oxygen Delivery Method Room Air 03/27/25 13:21 Medical Decision Making MDM Narrative Medical decision making narrative: CAT scan of her head and neck and x-ray of her left hip are negative. No evidence of UTI and her blood work is normal. She is able to be discharged home. Treatment diagnosis and follow-up were discussed with the patient and her family. Differential Diagnosis Differential Diagnosis: Head contusion, intracranial hemorrhage, C-spine fracture, hip contusion Lab Data Lab results reviewed: Yes I reviewed the patient's lab results Labs: Lab Results 03/27/25 03/27/25 Range/Units 13:30 14:16 WBC 6.1 (4.0-11.0) 10^3/uL RBC 4.32 (4.20-5.40) 10^6/uL Hgb 13.9 (12.0-16.0) g/dL Hct 43.3 (36.0-48.0) % MCV 100.2 H (81.0-99.0) fL MCH 32.2 (26.7-34.0) pg MCHC 32.1 (29.9-35.2) g/dL RDW 12.8 (11.0-15.0) % Plt Count 197 (150-450) 10^3/uL MPV 10.8 (9.5-13.5) fL Neut % (Auto) 56.3 (43.0-75.0) % Lymph % (Auto) 28.1 (20.5-60.0) % [place] % (Auto) 12.6 H (1.7-12.0) % Eos % (Auto) 2.0 (0.9-7.0) % Baso % (Auto) 0.7 (0.2-2.0) % Neut # (Auto) 3.4 (1.4-6.5) 10^3/uL Lymph # (Auto) 1.7 (1.2-3.8) 10^3/uL [place] # (Auto) 0.8 (0.3-0.8) 10^3/uL Eos # (Auto) 0.1 (0.0-0.7) 10^3/uL Baso # (Auto) 0.0 (0.0-0.1) 10^3/uL Abs Immat Gran (auto) 0.02 (0.00-0.03) 10^3/uL Imm/Tot Granulo (auto) 0.3 (0.0-0.5) % Sodium 139 (136-145) mmol/L Potassium 4.2 (3.5-5.1) mmol/L Chloride 103 (98-107) mmol/L Carbon Dioxide 32.2 H (21.0-32.0) mmol/L Anion Gap 8.0 BUN 17.0 (7.0-18.0) mg/dL Creatinine 1.14 H (0.55-1.02) mg/dL Est GFR ( Amer) 56 L (>=60 mL/min/1.73m^2) Est GFR (Non-Af Amer) 46 L (>=60 mL/min/1.73m^2) BUN/Creatinine Ratio 14.9 Glucose 125 H (74-106) mg/dL Calcium 8.8 (8.5-10.1) mg/dL Urine Color Lt. yellow (YELLOW) Urine Clarity Clear (CLEAR) Urine pH 7.0 (5.0-9.0) Ur Specific [place] 1.015 (1.005-1.025) Urine Protein Negative (NEG/TRACE) mg/dL Urine Glucose (UA) Negative (NEGATIVE) mg/dL Urine Ketones Negative (NEGATIVE) mg/dL Urine Occult Blood Negative (NEGATIVE) Urine Nitrite Negative (NEGATIVE) Urine Bilirubin Negative (NEGATIVE) Urine Urobilinogen 0.2 (0.2-1.0) EU/dL Ur Leukocyte Esterase Negative (NEGATIVE) Urine RBC 0-2 (0-2) #/HPF Urine WBC 0-2 A (NONE SEEN) #/HPF Ur Squamous Epith Cells Rare (NONE/RARE) #/LPF Urine Crystals Seen A (None Seen) #/HPF Amorphous Sediment Rare Urine Bacteria Trace A (NONE SEEN) #/HPF Urine Casts None seen (NONE SEEN) #/LPF Urine Mucus None seen (NONE SEEN) Ur Culture Indicated? No Imaging Data CT scan - head: Radiologist's impression: ITS Impressions Cervical Spine CT 03/27/25 13:18 IMPRESSION: NO CERVICAL SPINE FRACTURE Impression dictated by: Jayce De La Garza Jr. DKirtiOKirti 03/27/2025 2:39 PM Dictation Location: [id number] Electronically authenticated by: [id number] Y Date: 03/27/2025 14:[address] 03/27/25 13:18 IMPRESSION: NO ACUTE INTRACRANIAL ABNORMALITY. Impression dictated by: Jayce De La Garza Jr., D.O. 03/27/2025 2:36 PM Dictation Location: [facility]18 Electronically authenticated by: [id number] Y Date: 03/27/2025 14:36 Hip X-Ray 03/27/25 14:49 IMPRESSION: MODERATE DEGENERATIVE CHANGES INVOLVING THE LEFT HIP WITHOUT ACUTE BONY PROCESS.. Impression dictated by: Jayce De La Garza Jr., D.O. 03/27/2025 3:55 PM Dictation Location: [facility] Electronically authenticated by: [id number] Y Date: 03/27/2025 15:55 ECG Data Attestation: I personally reviewed and interpreted this ECG as follows: (KG on my interpretation shows sinus rhythm with a rate of 69 and no acute change) Discharge Plan Discharge Chief Complaint: Head Injury Clinical Impression: Fall Patient Disposition: Home, Self-Care Time of Disposition Decision: 16:14 Condition: Good Mode of Transportation: Private Vehicle Prescriptions / Home Meds: No Action simvastatin 10 mg tablet 10 mg PO DAILY metoprolol succinate 100 mg tablet extended release 24 hr 100 mg PO DAILY magnesium oxide 400 mg (241.3 mg magnesium) tablet 400 mg PO DAILY fexofenadine [Radha Allergy] 180 mg tablet 180 mg PO DAILY gabapentin 300 mg capsule 300 mg PO BID isosorbide mononitrate 30 mg tablet extended release 24 hr 30 mg PO DAILY acetaminophen [Tylenol] 325 mg Tablet 650 mg PO Q6H PRN (Reason: Pain) Qty: 0 0RF tizanidine 4 mg Tablet 2 mg PO Q8H PRN (Reason: Muscle spasm) Qty: 0 0RF sennosides-docusate sodium [Senna Plus] 8.6-50 mg Tablet 1 tab-cap PO QD PRN (Reason: Constipation) Qty: 0 0RF docusate sodium 100 mg Capsule 100 mg PO BID PRN (Reason: Constipation) Qty: 0 0RF alprazolam 0.25 mg tablet 0.25 mg PO DAILY PRN (Reason: anxiety) Qty: 5 0RF cholecalciferol (vitamin D3) [Vitamin D3] 50 mcg (2,000 unit) tablet 50 mcg PO DAILY Qty: 30 0RF hydrocodone-acetaminophen 5-325 mg tablet 1 tab PO Q4H PRN (Reason: pain) hydralazine 25 mg tablet 25 mg PO DAILY meloxicam 7.5 mg tablet 7.5 mg PO DAILY Print Language: Slovak Instructions: Fall Prevention for Older Adults (ED) Referrals: REJI FORRESTER [Primary Care Provider, Internal Medicine] - 1 week
[2025-03-27 13:54] LABS: Cast Seen? NONE SEEN #/LPF (NONE SEEN); Crystals Seen? Seen #/HPF (None Seen); Urine Culture Indicated NO
[2025-03-27 14:30] LABS: Hematocrit 43.3 % (36.0-48.0); Hemoglobin 13.9 g/dL (12.0-16.0); Immature Granulocytes Abs Auto 0.02 10^3/uL (0.00-0.03); Immature Granulocytes Pct Auto 0.3 % (0.0-0.5); Lymphocytes Absolute Auto 1.7 10^3/uL (1.2-3.8); Mean Corpuscular HGB Conc 32.1 g/dL (29.9-35.2); Mean Corpuscular Hemoglobin 32.2 pg (26.7-34.0); Mean Corpuscular Volume 100.2 fL (81.0-99.0); Platelet Count 197 10^3/uL (150-450); Red Blood Count 4.32 10^6/uL (4.20-5.40); White Blood Count 6.1 10^3/uL (4.0-11.0)
[2025-03-27 14:39] LABS: Anion Gap 8.0; Blood Urea Nitrogen 17.0 mg/dL (7.0-18.0); Calcium 8.8 mg/dL (8.5-10.1); Carbon Dioxide 32.2 mmol/L (21.0-32.0); Chloride 103 mmol/L (98-107); Estimated GFR (African America 56 (>=60 mL/min/1.73m^2); Estimated GFR (Non-African Ame 46 (>=60 mL/min/1.73m^2); Glucose 125 mg/dL (74-106); Potassium 4.2 mmol/L (3.5-5.1); Sodium 139 mmol/L (136-145)
--- NOTE | 2025-03-27 14:49 | XR_ITS ---
[facility] [place] [id number] Patient Name: LUMA RIBEIRO MRN: [id number] date: 1945 Sex: F Assigned Patient Location: ER Current Patient Location: ER Accession/Order Number: [id number] Exam Date: 03/27/2025 15:00 Report Date: 03/27/2025 15:55 At the request of: MARION HAGEN MD Procedure: XR hip LT min 2V LEFT HIP - 2 views: CLINICAL HISTORY: fall COMPARISON: Left hip 12/16/2019 FINDINGS: Moderate degenerative changes of the left hip without acute bony process. XR/XR hip LT min 2V IMPRESSION: MODERATE DEGENERATIVE CHANGES INVOLVING THE LEFT HIP WITHOUT ACUTE BONY PROCESS.. Impression dictated by: Jayce De La Garza Jr., D.O. 03/27/2025 3:55 PM Dictation Location: [place] [address] Electronically authenticated by: [id number] Y Date: 03/27/2025 15:55
[2025-03-27 16:46] VITALS: BP 154/75; PULSE 84; O2SAT 97
== END 2025-03-27 16:47 | disposition home or self-care (01) ==
PROVIDERS: Emergency Provider Emergency Medicine; PCP Internal Medicine
DX: Z04.3 Encounter for examination and observation following other accident (principal); W18.39XA Other fall on same level, initial encounter; Y92.000 Kitchen of unspecified non-institutional (private) residence as the place of occurrence of the external cause
CPT/HCPCS: 36415; 70450; 72125; 73502; 76376; 80048; 81001; 85025; 93005; 99285

== ENCOUNTER 2025-03-28 09:54 | Outpatient (OUT) | payer MEDICARE, OTHER, SELFPAY ==
--- OUTSIDE RECORDS SUMMARY | 2025-03-28 10:00 | XMS_ITS | CCD ---
Author Organization [facility] Care Team Providers Care Sap Ppm Consultant Name Role Phone Tasia Bird Unavailable Unavailable Unavailable Unavailable Unavailable TRA Cotto, SASHA Consulting Unavailable TRA Cotto, SASHA Admitting Unavailable USAMA, DR MENDOZA Primary Care Unavailable TRA Cotto, SASHA Attending Unavailable HATTIE HO Consulting Unavailable USAMA, DR MENDOZA Attending Unavailable [...] Briscoe Attending U Roc Wellington MD Unavailable [phone] Roc Steele MD Primary Care Provider Roc Steele MD Unavailable Ritchie DO, Christopher Unavailable Mala Sapp Attending UnavailMala Kenney Admitting UnavailRoc Grant Primary Care Unavailable Raya Holt RN Unavailable Roc Steele MD Primary Care Provider Eitan JUAREZ, Gladis Unavailable Unavailable Ritchie DO, Christopher Unavailable Ritchie DO, Christopher Unavailable Laird STRATEGIC COMMUNICATIONS SPECIALIST, Gladis Unavailable KAMILA PRIDE Attending Unavailable ALEX [...] Primary Care Unavailable Reji Dugan DOer Unavailable [phone] Waqas Dugan DO Unavailable Roc Steele MD Unavailable Yanet MORALES, Raya Unavailable Allergies Allergy ClassificationReported Allergen(s)Allergy TypeDate of OnsetReaction(s) FacilityMacrolides (antibiotic) (6 sources)Clarithromycin; Translations: [clarithromycin]Drug AllergyUnknownMP- [facility] Work Phone: Quinolones (antibiotic) (18 sources)moxifloxacin; Translations: [moxifloxacin]Drug AllergyAnaphylaxis, Unknown-[facility] Work Phone: (20 sources)Ciprofloxacin; Translations: [ciprofloxacin]Drug Rsxxlse70-80-6203 [facility] ([facility] sources)Clarithromycin; Translations: [clarithromycin]Drug [id number] UnknownThe [facility] (4 sources)moxifloxacin; Translations: [Avelox]Drug Szhcpzb68-64-5803Eapobetmnug [facility] Rep[facility] (20 sources)moxifloxacin; Translations: [moxifloxacin]Drug Ddrjonp40-93-8660 Anaphylaxis, AngioedemaMP-[place] [facility] Work Phone: (1 source)CiprofloxacinDrug Sfhikwp63-91-7591Bdd [facility] Repository (1 source)Sulfonamides (Antibiotic)Drug allergy (disorder)20-56-8962Adi [facility] Repository (20 sources)SulfanilamideAllergy to jxleuoxcf56-39-6390[facility] (8 sources)Sulfonamides (Antibiotic); Translations: [SULFA (SULFONAMIDE ANTIBIOTICS)]Propensity to adverse dpecbtyok12-67-7572XophmdnZidcpijqpiSelect [facility] Work Phone: Medications Current Medications MedicationDrug Class(es)DatesSig (Normalized)Sig (Original)acetaminophen 325 mg / HYDROcodone bitartrate 5 mg oral tablet (20 sources)Opioid AgonistStart: 02-29-2024 End: 90-73-3103pfem 1 tablet by mouth every four hours for painHYDROcodone- acetaminophen ([place]) 5-325 MG tablet Indications: Lumbosacral spondylosis without myelopathy Take 1 tablet by mouth every 4 (four) hours if needed for moderate pain or severe pain 180 tablet 10/18/2024 11/17/2024 Mrsftgsef222420 200 actuat albuterol 0.09 mg/actuat metered dose inhaler (14 sources)beta2-Adrenergic AgonistStart: 08-01-2024 End: 54-18-4006shpy 2 puff(s) by inhalation every four hours for coughalbuterol HFA (Ventolin HFA) 90 mcg/act inhaler Indications: SOB (shortness of breath) , Chronic cough Inhale 2 puffs every 4 (four) hours if needed for wheezing or shortness of breath (cough) 54 g 08/01/2025 ActiveALPRAZolam 0.25 mg oral tablet (20 sources)BenzodiazepineStart: 51-20-4694mhjk 1 tablet by mouth twice daily as needed for anxietyALPRAZolam (Xanax) 0.25 MG tablet Indications: Anxiety Take 1 tablet (0.25 mg) by mouth 2 (two) times a day as needed for anxiety 60 tablet 11/30/2023 ActiveamLODIPine 5 mg oral tablet (20 sources)Dihydropyridine Calcium Channel BlockerStart: 10-17-2022 End: 01-34-9959tfmb 1 tablet by mouth once dailyamLODIPine (Norvasc) 5 MG tablet Indications: Benign essential hypertension (CMS/HCC) Take 1 tablet(5 mg) by mouth Daily 90 tablet 3 01/29/2024 05/22/2024 Discontinued (Therapy completed) amoxicillin 500 mg oral capsule (5 sources)Penicillin-class AntibacterialStart: 05-18-2023 End: 79-36-5205nexl 4 tablets by mouth every houramoxicillin (Amoxil) 500 MG capsule Indications: Onychomycosis Take all 4 tablets 1 hour by mouth prior to procedure. 4 capsule 1 05/18/2023 Activebenzonatate 100 mg oral capsule (11 sources)Non-narcotic AntitussiveStart: 04-29-2024 End: 63-66-5241vwodqnxirkk (Tessalon) 100 MG capsule TAKE 1 CAPSULE [...] oral capsule (5 sources)Cephalosporin AntibacterialStart: 06-11-2024 End: 23-31-1118hwpi 1 capsule by mouth in the morningcefdinir (Omnicef) 300 MG capsule Indications: Acute non-recurrent pansinusitis Take 1 capsule (300mg) by mouth in the morning and 1 capsule (300 mg) before bedtime. Do all this for 10 days. 20 capsule 06/11/2024 06/21/2024 ActiveStart: 04-03-2024 End: 28-45-7775maub 1 capsule by mouth in the morningcefdinir (Omnicef) 300 MG capsule Indications: Acute non-recurrent sinusitis of other sinus Take 1 capsule (300 mg) by mouth in the morning and 1 capsule (300 mg) before bedtime. Do all this for 10 days. 20 capsule 04/03/2024 04/13/2024 Activecephalexin 500 mg oral capsule (6 sources)Cephalosporin AntibacterialStart: 03-05-2024 End: 30-10-0421yspn 1 capsule by mouth in the morning, [...] 21 capsule 03/05/2024 03/12/2024 ActiveStart: 06-01-2023 End: 96-07-8176fdoz 1 capsule by mouth in the morning, [...] oral solution (10 sources)Opioid AgonistStart: 08-01-2024 End: 02-48-5555pijy 10 mL by mouth four times daily as needed for cough guaiFENesin-codeine (Robitussin-AC) 100-10 MG/5ML syrup Indications: Chronic cough Take 10 mL by mouth 4 (four) times a day as needed for cough for up to 5 days 473 mL 08/01/2024 08/06/2024 ActiveStart: 06-11-2024 End: 71-54-2813rkgp 5 mL by mouth four times daily as needed for cough guaiFENesin-codeine (guaiFENesin AC) 100-10 MG/5ML syrup Indications: Acute cough Take 5 mL by mouth 4 (four) times a day as needed for cough for up to 14 days 240 mL 06/11/2024 06/25/2024 ActiveStart: 05-07-2024 End: 70-33-7070jtth 5 mL by mouth four times daily as needed for cough guaiFENesin-codeine (Robitussin-AC) 100-10 MG/5ML syrup Indications: Acute cough Take 5 mL by mouth4 (four) times a day as needed for cough for up to 5 days 240 mL 05/07/2024 05/12/2024 ActiveStart: 04-03-2024 End: 11-99-0593titq 5 mL by mouth four times daily as needed for cough guaiFENesin-codeine (Virtussin A/C) 100-10 MG/5ML syrup Indications: Acute cough Take 5 mL by mouth4 (four) times a day as needed for cough for up to 5 days 240 mL 04/03/2024 04/08/2024 Activecyclobenzaprine hydrochloride 10 mg oral tablet (20 sources)Muscle Relaxant End: 42-90-9465lzyp 1 tablet by mouth three times daily as needed for muscle spasmscyclobenzaprine (Flexeril) 10 MG tablet Take 10 mg by mouth 3 (three) times a day as needed for muscle spasms. 05/22/2024 Discontinued (Therapy completed)1 ml denosumab 60 mg/ml prefilled syringe (14 sources)RANK Ligand InhibitorStart: 28-71-7015vbcdem 60 mg by subcutaneous injection onceProlia 60 MG/ML solution prefilled syringe Indications: Age- related osteoporosis without current pathological fracture INJECT 60MG SUBCUTANEOUSLY ONCE DIRECTED 1 mL 01/14/2025 ActiveStart: 13-60-9681Svkdkx 60 mg/mL syringe Inject 1 mL (60 mg total) under the skin every 6 months. 08/01/2024 ActiveStart: 07-05-8411cmxltf 1 mL by subcutaneous injection once denosumab [...] oral tablet (6 sources)Tetracycline-class DrugStart: 05-07-2024 End: 40-29-0077pthxcxhlmmx (Vibra-Tabs) 100 MG tablet Indications: Bronchitis Take [...] tablet (15 sources)Histamine-1 Receptor AntagonistStart: 08-01-2024 End: 76-22-4090gpts 1 tablet by mouth once daily as neededfexofenadine (Radha) 180 MG tablet Indications: Seasonal allergic rhinitis, unspecified trigger Take 1 tablet (180 mg) by mouth Daily as needed (alleriges) 90 tablet 3 08/01/2024 08/01/2025 Activefurosemide 20 mg oral tablet (20 sources)Loop DiureticStart: 04-04-2024 End: 29-07-0240awox 1 tablet by mouth once dailyfurosemide (Lasix) 20 MG tablet Indications: Cardiomegaly , Chronic congestive heart failure, unspecified heart failure type (HCC) Take 1 tablet (20 mg) by mouth Daily 90 tablet 3 07/18/2024 07/18/2025 Activegabapentin 300 mg oral capsule (20 sources)Anti-epileptic AgentStart: 04-97-4832tpgo 1 capsule by mouth in the morninggabapentin (Neurontin) 300 MG capsule Indications: Acute low back pain without sciatica, unspecified back pain laterality Take 1 capsule (300 mg) by mouth in the morning and 1 capsule (300 mg) beforebedtime. 200 capsule 3 10/02/2024 Lybief39 hr isosorbide mononitrate 30 mg extended release oral tablet (1 source)Nitrate VasodilatorStart: 2024 End: 54-22-4575xshj 1 tablet by mouth once daily at bedtimeisosorbide mononitrate ER (Imdur) 30 mg 24 hr tablet Indications: Chest discomfort Take 1 tablet (30 mg) by mouth once daily at bedtime. Do not crush or chew. 90 tablet 3 2024 2025 Activelactulose 667 mg/ml oral solution (5 sources)Osmotic LaxativeStart: 92-46-4376jsxk 30 mL by mouth twice daily Constulose 10 GM/15ML solution TAKE 30 ML BY MOUTH TWICE DAILY FOR 3 DAYS 0 09/05/2022 Activemagnesium oxide 400 mg oral tablet (7 sources)Start: 2024 End: 60-69-2604caei 1 tablet by mouth twice dailymagnesium oxide (Mag-Ox) 400 mg (241.3 mg elemental) tablet Indications: Palpitations Take 1 tabletby mouth 2 times a day. 180 tablet 3 2024 2025 ActiveStart: 07-15-2024 End: 70-10-0902jzpi 1 tablet by mouth once dailymagnesium oxide (Mag-Ox) 400 mg (241.3 mg magnesium) tablet Indications: Paroxysmal supraventricular tachycardia Take 1 tablet (400 mg) by mouth once daily. 90 tablet 3 07/15/2024 2024 Discontinuedmeloxicam 15 mg oral tablet (20 sources)Nonsteroidal Anti-inflammatory DrugStart: 94-58-9672mlkc 1 tablet by mouth once dailymeloxicam (Mobic) 15 MG tablet Indications: Primary osteoarthritis involving multiple joints TAKE 1TABLET BY MOUTH ONCE DAILY 90 tablet 3 10/10/2024 ActivemethylPREDNISolone (3 sources)CorticosteroidStart: 05-07-2024 End: 15-75-5687eeplchGIMZBFSrkagd (Medrol Dospak) 4 MG tablets Indications: Bronchitis Follow schedule on package instructions 21 tablet 05/07/2024 05/14/2024 Vvpasu03 hr metoprolol succinate 50 mg extended release oral tablet (20 sources)beta-Adrenergic BlockerStart: 2024 End: 61-93-1570kzje 1 tablet by mouth once daily at bedtimemetoprolol succinate XL (Toprol XL) 100 mg 24 hr tablet Indications: Palpitations Take 1 tablet (100 mg) by mouth once daily at bedtime. Do not crush or chew. 90 tablet 3 2024 2025 ActiveStart: 2024 End: 20-67-3664ychq 1 tablet by mouth once daily in the morningmetoprolol succinate XL (Toprol-XL) 50 mg 24 hr tablet Indications: Palpitations Take 1 tablet (50 mg) by mouth once daily in the morning. 90 tablet 3 2024 2025 ActiveStart: 35-87-2527xtvo 1 tablet by mouth every twenty-four hours in the morningmetoprolol succinate XL (Toprol-XL) 50 MG 24 hr tablet Indications: Benign essential hypertension TAKE 1 TABLET BY MOUTH IN THE MORNING AND 1 TABLET BY MOUTH BEFORE BEDTIME 180 tablet 3 10/10/2024 ActiveStart: 05-22-2024 End: 32-04-2710vbmd 1 tablet by mouth twice dailymetoprolol succinate XL (Toprol-XL) 50 mg 24 hr tablet Take 1 tablet (50 mg) by mouth twice a day. 0 05/22/2024 2024 Discontinued (Reorder)Start: 35-09-0602hwwz 1 tablet by mouth every twenty-four hours in the morningmetoprolol succinate XL (Toprol-XL) 50 MG 24 hr tablet Indications: Benign essential hypertension (CMS/HCC) Take 1 tablet (50 mg) by mouth in the morning and 1 tablet (50 mg) before bedtime. 90 tablet 3 05/22/2024 ActiveStart: 08-08-2023 End: 33-35-5202audr 1 tablet by mouth once dailymetoprolol succinate [...] each day at the same time. 0 Unuljlmnghdrhsqjlu-Ig-fehf-minerals tablet (1 source)take 1 tablet by mouth once noipbrocbqztakkif-Mb-ptvb-minerals tablet Take 1 tablet by mouth once daily. Activenortriptyline 10 mg oral capsule (20 sources)Tricyclic AntidepressantStart: 42-70-3750rbow 3 capsules by mouth once daily at bedtimenortriptyline (Pamelor) 10 MG capsule Indications: Primary insomnia , Anxiety TAKE 3 CAPSULES BY MOUTH AT BEDTIME ONCE DAILY 270 capsule 3 10/10/2024 ActiveStart: 57-30-1614iajr 3 capsules by mouth once daily at bedtime nortriptyline (Pamelor) 10 MG capsule Indications: Primary insomnia , Anxiety TAKE 3 CAPSULES BY MOUTH AT BEDTIME ONCE DAILY 270 capsule 3 11/09/2022 Active pantoprazole 40 mg delayed release oral tablet (20 sources)Proton Pump InhibitorStart: 09-40-1375vzsi 1 tablet by mouth once dailypantoprazole (ProtoNix) 40 MG EC tablet Indications: Gastroesophageal reflux disease with esophagitis without hemorrhage TAKE 1 TABLET BY MOUTH ONCE DAILY 90 tablet 3 09/11/2024 Activetake 1 tablet by mouth once dailypantoprazole (ProtoNix) 40 MG EC tablet TAKE 1 TABLET BY MOUTH ONCE DAILY for 90 0 Active plecanatide 3 mg oral tablet (5 sources)Start: 10-13-2022 End: 32-06-6965gyer 1 tablet by mouth in the morningplecanatide (Trulance) tablet tablet Indications: Chronic idiopathic constipation Take 1 tablet (3 mg) by mouth in the morning. 30 tablet 11 10/13/2022 10/13/2023 Active microencapsulated potassium chloride 10 meq extended release oral tablet (1 source)Start: 04-04-2024 End: 03-96-1195vxba 1 tablet by mouth once dailypotassium chloride CR (Klor-Con M10) 10 MEQ ER tablet Indications: Acute pulmonary edema (CMS/HCC) , Hypokalemia Take 1 tablet (10 mEq) by mouth Daily for 7 days Do not crush or chew. 7 tablet 04/04/2024 04/11/2024 Activesimvastatin 10 mg oral tablet (20 sources)HMG-CoA Reductase InhibitorStart: 09-13-2023 End: 51-51-2782ifeh 1 tablet by mouth once dailysimvastatin (Zocor) 10 MG tablet Indications: Hyperlipidemia, unspecified hyperlipidemia type TAKE 1 TABLET BY MOUTH ONCE DAILY 90 tablet 3 10/10/2024 Activetake 1 tablet by mouth once daily simvastatin (Zocor) 10 MG tablet TAKE 1 TABLET BY MOUTH ONCE DAILY for 90 0 ActivetiZANidine 4 mg oral tablet (20 sources)Central alpha-2 Adrenergic AgonistStart: 84-36-6497yjai 1 tablet by mouth every eight hours as neededtiZANidine (Zanaflex) 4 MG tablet Indications: Primary insomnia TAKE 1 TABLET BY MOUTH EVERY 8 HOURS NEEDED 270 tablet 10/07/2024 ActiveStart: 48-46-1507hmxs 1 tablet by mouth three times daily tiZANidine (Zanaflex) 4 mg tablet Take 1 tablet (4 mg) by mouth 3 times a day. 04/16/2024 ActiveStart: 04-16-2024 End: 12-86-7234kten 1 tablet by mouth every eight hours [...] tablet (20 sources)gamma-Aminobutyric Acid-ergic AgonistStart: 10-17-2023 End: 94-45-8403oeql 1 tablet by mouth at bedtimezolpidem (Ambien) 10 MG tablet Indications: Primary insomnia TAKE 1 TABLET BY MOUTH AT BEDTIME 90 tablet 09/11/2024 ActiveStart: 41-14-0647cink 1 tablet by mouth at bedtimezolpidem (Ambien) [...] pain; Translations: [LEFT UPPER QUADRANT PAIN] Onset: 38-58-0688UjsrdoilMmfwlyijenztta/social admission (12 sources)First encounter by subject; Translations: [Persons encountering health services in other specified circumstances]Onset: 410105-28-4936 EpisodicAnxiety disorders (20 sources)Anxiety; Translations: [Anxiety disorder, unspecified]Onset: 439465-10-1421PrvfmcoMittijs tract disease (1 source)Calculus of gallbladder without cholecystitis without obstruction; Translations: [CALCU GB W/O CHOLECYST W/O OBST]Onset: 97-39-6931Ltymgddf Blindness and vision defects (8 sources)Disorder of vision; Translations: [Problems with sight]Chronic Blindness and vision defects (1 source)Disorder of vision; Translations: [History of Vision problems]Episodic Cardiac dysrhythmias (20 sources)Paroxysmal supraventricular tachycardia; Translations: [Paroxysmal supraventricular tachycardia]Onset: 808085-15-1932BwumexwQixikdq dysrhythmias (20 sources)Palpitations; Translations: [Palpitations]Onset: 07-15-2024 47-86-4161RarblvwgYhigsgi kidney disease (11 sources)Chronic kidney disease stage 3B ; Translations: [Stage 3b chronic kidney disease (HCC) (CMS/HCC)]Onset: 209761-22-1274DvdtpseHnlrxsl kidney disease (2 sources)Chronic kidney disease; Translations: [Chronic kidney disease, stage 3a (Multi)]Onset: 15-53-5992Qrypbqo obstructive pulmonary disease and bronchiectasis (1 source)Bronchiectasis, uncomplicated; Translations: [BRONCHIECTASIS UNCOMPLICATED]Onset: 86-44-4973GftcqewApiqqgk obstructive pulmonary disease and bronchiectasis (2 sources)Bronchitis; Translations: [Bronchitis, not specified as acute or chronic]71-52-6140PmtjaelbJdczcpgdhi associated with dizziness or vertigo (15 sources)Lightheadedness; Translations: [Dizziness and giddiness]Onset: 706259-95-7380UlsqppvaGpntlihgdq heart failure; nonhypertensive (12 sources)Acute congestive heart failure; Translations: [Heart failure, unspecified]82-62-5411MgufjjwQonqaryko of lipid metabolism (20 sources)Pure hypercholesterolemia, unspecified; Translations: [Hyperlipidemia]Onset: 755140-21-7900BnkbozeBedqkkdezjugxv and diverticulitis (20 sources)Diverticulosis of intestine, part unspecified, without perforation or abscess without bleeding; Translations: [Diverticulosis of colon]Onset: 376305-73-9273XwvpqzvB Codes: Fall (4 sources)Fall; Translations: [Unspecified fall, initial encounter]04-03-2024 EpisodicEsophageal disorders (20 sources)Gastro-esophageal reflux disease without esophagitis; Translations: [Gastroesophageal reflux disease]Onset: 539379-23-3439FhlsgkrEgtarouyh hypertension (20 sources)Essential (primary) hypertension; Translations: [Benign essential hypertension]Onset: 414878-66-1660WhkpaofDlmvt and electrolyte disorders (1 source)Hypokalemia; Translations: [Hypokalemia]80-82-0208Zhhumuaf Immunizations and screening for infectious disease (2 sources)Needs influenza immunization; Translations: [Encounter for immunization]95-08-8544FgjizvchAagwf disorders and dislocations; trauma-related (2 sources)Recurrent dislocation, right shoulder; Translations: [Dislocation of shoulder joint]Onset: 37-48-3560HwuieqowRtguxkryoiqeh (2 sources)Lymphadenopathy; Translations: [Generalized enlarged lymph nodes] 80-64-1783FecatcbeKdpfmvz and fatigue (8 sources)Asthenia; Translations: [Weakness]42-28-7247TnvxfndcSgimnryfxo disorders (20 sources)Decreased estrogen level; Translations: [Other primary ovarian failure]Onset: 172164-02-3612SpsbhffYkctpbwuivdlo mental health disorders (4 sources)Primary insomnia; Translations: [Primary insomnia]66-37-2664Ydwxdla Mycoses (4 sources)Pain in toe; Translations: [Tinea unguium]53-84-3863DbzlvjqlCaspvr and vomiting (1 source)Nausea; Translations: [NAUSEA]Onset: 97-84-4713AhlpfvkkPyiorrjzsea chest pain (16 sources)Chest discomfort; Translations: [Other chest pain]Onset: 07-15-2024 72-97-1781EavopyrzDssnjeypgkq deficiencies (20 sources)Vitamin D deficiency; Translations: [Vitamin D deficiency, unspecified]Onset: 736194-64-7625TkbyehhRwwcbeoav or stenosis of precerebral arteries (20 sources)Carotid artery occlusion; Translations: [Occlusion and stenosis of unspecified carotid artery]Onset: 397582-87-5206QpnxrxrDuawegitehlkcz (20 sources)Osteoarthritis of multiple joints ; Translations: [Polyosteoarthritis, unspecified]Onset: 765029-63-9412ZhocqmjMdtpabegfhqh (5 sources)Age-related osteoporosis without current pathological fracture; Translations: [Senile osteoporosis]Onset: 835904-67-8854KibabxeFxwpu aftercare (1 source)Other mcfp (current) drug therapy; Translations: [OTH CASINO OPERATIONS SUPERVISOR CURRENT DRUG THERAPY]Onset: 49-33-2261MaekjcikXntpf and ill-defined heart disease (20 sources)Cardiomegaly; Translations: [Cardiomegaly]Onset: 09-30-2022 85-08-7590KjitectEdyat bone disease and musculoskeletal deformities (4 sources)Subungual exostosis of great toe; Translations: [Disorder of bone, unspecified]33-78-9740DikccnkkZyqwl circulatory disease (9 sources)H/O: hypertension; Translations: [Personal history of other diseases of circulatory system]EpisodicOther connective tissue disease (9 sources)History of total hip arthroplasty; Translations: [Hip joint replacement]ChronicOther connective tissue disease (20 sources)Musculoskeletal finding; Translations: [Presence of other bone and tendon implants]Onset: 476123-26-9103IkonbbaQstdn connective tissue disease (9 sources)H/O: arthritis; Translations: [Personal history of arthritis]Episodic Other connective tissue disease (8 sources)Trochanteric bursitis; Translations: [Enthesopathy of hip region] EpisodicOther connective tissue disease (3 sources)Unspecified rotator cuff tear or rupture of unspecified shoulder, not specified as traumatic; Translations: [Rotator cuff tear]EpisodicOther connective tissue disease (1 source)Fibromyalgia; Translations: [FIBROMYALGIA]Onset: 80-22-7821Raiiwqkw Other connective tissue disease (2 sources)Pain of toe of left foot; Translations: [Pain in left toe(s)] 51-66-0939QqonyvheBfkuy connective tissue disease (2 sources)Pain in axilla; Translations: [Pain in left upper arm]03-05-2024 EpisodicOther connective tissue disease (2 sources)Pain in right hand; Translations: [Pain in right hand]04-03-2024 EpisodicOther gastrointestinal disorders (9 sources)Disorder of digestive system; Translations: [Other digestive problems]EpisodicOther gastrointestinal disorders (1 source)Constipation, unspecified; Translations: [CONSTIPATION UNSPECIFIED] Onset: 72-96-7108AlwsirutAgjjb lower respiratory disease (2 sources)Fibrosis of lung; Translations: [Pulmonary fibrosis, unspecified] 22-88-4645ZhfsxqcJqbbo lower respiratory disease (6 sources)Cough; Translations: [Acute cough]66-04-2324WzwecqpsLjuyu lower respiratory disease (2 sources)Rib pain; Translations: [Pleurodynia]96-14-1001EryqwhzxQqiqt lower respiratory disease (4 sources)Dyspnea; Translations: [Shortness of breath]55-32-5111HboupapmGhpzt lower respiratory disease (1 source)Acute pulmonary edema; Translations: [Acute pulmonary edema]04-04-2024 EpisodicOther nervous system disorders (1 source)Other chronic pain; Translations: [OTHER CHRONIC PAIN]Onset: 86-34-4108BrpsrxvWcgyy nervous system disorders (20 sources)Difficulty walking; Translations: [Difficulty in walking, not elsewhere classified]Onset: 525741-29-3535GbyuibkDxidm nervous system disorders (2 sources)Carpal tunnel syndrome of left wrist; Translations: [Carpal tunnel syndrome, left upper limb]27-74-0987NessfezGkcnl nervous system disorders (4 sources)Numbness of hand; Translations: [Anesthesia of skin]03-05-2024 EpisodicOther non-traumatic joint disorders (20 sources)Derangement of right shoulder joint; Translations: [Other specific joint derangements of right shoulder, not elsewhere classified]Onset: 09-30-2022 59-67-3906AyzfyycCuunk non-traumatic joint disorders (11 sources)Hip pain; Translations: [Pain in joint, pelvic region and thigh] 66-13-6573AlwljejuHhati non-traumatic joint disorders (1 source)Shoulder pain; Translations: [Pain in joint, shoulder region]Episodic Other non-traumatic joint disorders (2 sources)Pain of right wrist; Translations: [Pain in right wrist]04-03-2024 EpisodicOther nutritional; endocrine; and metabolic disorders (3 sources)Morbid (severe) obesity due to excess calories; Translations: [MORBID SEVERE OBES D/T EXCESS MONALISA]Onset: 08-92-0262OoxqfmpYvhmo nutritional; endocrine; and metabolic disorders (1 source)Body mass index (BMI) 45.0-49.9, adult; Translations: [BODY MASS INDEX BMI 45.0-49.9 ADULT]Onset: 64-45-4960HefnseeVxkbm nutritional; endocrine; and metabolic disorders (20 sources)Morbid obesity; Translations: [Morbid (severe) obesity due to excess calories]Onset: 617020-59-5802HbsnkvnIpyoj nutritional; endocrine; and metabolic disorders (2 sources)Obesity caused by energy imbalance; Translations: [Morbid (severe) obesity due to excess calories]53-94-8818IcpfncoTfxsc nutritional; endocrine; and metabolic disorders (10 sources)Body mass index 40+ - severely obese; Translations: [Body mass index (BMI) 45.0-49.9, adult]Onset: 272962-63-5563EmlplihBziqj nutritional; endocrine; and metabolic disorders (2 sources)Hypomagnesemia; Translations: [Hypomagnesemia]09-12-6003ZyfwwjrHsrdh nutritional; endocrine; and metabolic disorders (2 sources)Body mass index (BMI) 40.0-44.9, adult; Translations: [Body mass index (BMI) 40.0-44.9, adult (Multi)]Onset: 71-72-4527DvyyomrWkvhu screening for suspected conditions (not mental disorders or infectious disease) (20 sources)Encounter for screening mammogram for malignant neoplasm of breast; Translations: [Patient encounter status]Onset: 96-83-5135YoardibaIkunk skin disorders (8 sources)Mass of upper limb; Translations: [Localized superficial swelling, mass, or lump]EpisodicOther skin disorders (4 sources)Ingrowing nail; Translations: [Ingrowing nail]90-66-0024QipsjczjZbtbj upper respiratory disease (20 sources)Allergic rhinitis; Translations: [Allergic rhinitis, unspecified] Onset: 137610-39-1254FneyccxSsaug upper respiratory disease (2 sources)Seasonal allergic rhinitis; Translations: [Other seasonal allergic rhinitis]16-01-1069VwlklmqBpmww upper respiratory infections (4 sources)Acute sinusitis; Translations: [Other acute sinusitis]04-03-2024 EpisodicPneumonia (except that caused by tuberculosis or sexually transmitted disease) (6 sources)Bilateral pneumonia; Translations: [Pneumonia, unspecified organism] 62-30-3352YfvzseedTufgstds codes; unclassified (20 sources)Obstructive sleep apnea syndrome; Translations: [Obstructive sleep apnea (adult) (pediatric)]Onset: 789806-00-5943SlzrypzQmoebqir codes; unclassified (8 sources)Walking aid use - finding; Translations: [Dependence on other enabling machines and devices]Onset: 028451-75-9999ZzbqeanWdlyfemr codes; unclassified (2 sources)Obstructive sleep apnea (adult) (pediatric); Translations: [Obstructive sleep apnea (adult) (pediatric)]Onset: 20-41-2216XaczmqoBvhzgvgw codes; unclassified (2 sources)Dependence on other enabling machines and devices; Translations: [Dependence on other enabling machines and devices]Onset: 10-40-5046Rxerugt Residual codes; unclassified (9 sources)H/O: Disorder; Translations: [Personal history of other specified diseases]EpisodicResidual codes; unclassified (2 sources)Localized edema; Translations: [Localized edema]36-63-8246Fkvneypm Residual codes; unclassified (8 sources)Never smoked tobacco; Translations: [Other specified health status] Onset: 123731-13-3488DbjqrzsnCmlvevwa codes; unclassified (2 sources)Other specified health status; Translations: [Other specified health status]Onset: 16-55-8798TjbrcrksFmuvseq detachments; defects; vascular occlusion; and retinopathy (20 sources)Exudative age-related macular degeneration; Translations: [Exudative age-related macular degeneration, left eye, with active choroidal neovascularization]Onset: 320816-45-4774HbzsjqpKygpntgopk arthritis and related disease (4 sources)Ankylosing spondylitis; Translations: [Ankylosing spondylitis of thoracic region]33-40-3523MnhkchxQjyj and subcutaneous tissue infections (2 sources)Cellulitis of finger of left hand; Translations: [Cellulitis of left finger]18-01-2463RlgotdddTcswbzrpzog; intervertebral disc disorders; other back problems (20 sources)Lumbosacral spondylosis without myelopathy; Translations: [Spondylosis without myelopathy or radiculopathy, lumbosacral region]Onset: 379569-79-7298KhyvioiKwykdykmbrgj (1 source)LOW BACK PAIN, UNSPECIFIED; Translations: [LOW BACK PAIN, UNSPECIFIED] Onset: 60-70-9268Mfiasqeodrmb (1 source)ACIDOSIS UNSPECIFIED; Translations: [ACIDOSIS UNSPECIFIED]Onset: 39-51-6118Wnebjplkzkil (1 source)First encounter by -80-9382Utishrngxtmw (2 sources)Supraventricular tachycardia, unspecified; Translations: [Supraventricular tachycardia, unspecified]Onset: 96-16-0569Uiwqjtntgbza (1 source)Supraventricular tachycardia, unspecified (CMS-HCC); Translations: [Supraventricular tachycardia, unspecified (CMS-HCC)]Onset: 07-15-2024 Past or Other Problems Problem ClassificationProblemDateDocumented DateEpisodic/ChronicDiabetes mellitus without complication (20 sources)Impaired glucose tolerance; Translations: [Impaired glucose tolerance (oral)]Onset: 573347-40-1433EcozwyxuUuzf disorders (20 sources)Mood disordersOnset: 543950-40-2124Xovaxoojsyig breast conditions (20 sources)Breast hematoma; Translations: [Other specified disorders of breast] Onset: 383886-33-6520RihqskarPixsu bone disease and musculoskeletal deformities (20 sources)Osteopenia; Translations: [Other specified disorders of bone density and structure, unspecified site]Onset: 502347-50-1631TijvvndfNaqyv connective tissue disease (20 sources)Pain of toe of right foot; Translations: [Pain in right toe(s)] Onset: 737859-19-4467YhbmkypeMwffa connective tissue disease (20 sources)Recurrent falls ; Translations: [Repeated falls]Onset: 09-30-2022 27-70-3269ZdkyjnnqCelcx injuries and conditions due to external causes (7 sources)At high risk for fall; Translations: [History of falling]Onset: 359377-33-2914CdynqocnGixib injuries and conditions due to external causes (2 sources)History of falling; Translations: [History of falling]Onset: 33-31-1340DiyvsrkxMenho lower respiratory disease (20 sources)Chronic cough; Translations: [Chronic cough]Onset: 09-30-2022 87-91-8982FqnfxiheUxhtr nervous system disorders (20 sources)Loss of sense of smell; Translations: [Anosmia]Onset: 09-30-2022 33-02-6455ZdmlhpwkBvlij nervous system disorders (20 sources)Loss of taste; Translations: [Parageusia]Onset: EpisodicResidual codes; unclassified (1 source)Family history of malignant neoplasm of breast; Translations: [FAMILY HX MALIG NEOPLASM OF BREAST]Onset: 74-78-4965JxwukllcSzqrjbtk codes; unclassified (20 sources)Edema; Translations: [Edema, unspecified]Onset: EpisodicResidual codes; unclassified (20 sources)Insomnia; Translations: [Insomnia, unspecified]Onset: 09-30-2022 88-32-1836EyyiohguYpzreaknrod; intervertebral disc disorders; other back problems (20 sources)Low back pain; Translations: [Low back pain]Onset: 09-30-2022 55-58-1264DkribribCppucyfolluh (6 sources)Onset: 07-15-2024 Resolved: 622040-39-3234Zenxtihrrtks (2 sources)Supraventricular tachycardia, unspecified; Translations: [Supraventricular tachycardia, unspecified]Onset: 47-21-3606Hienfbafekjn (1 source)Supraventricular tachycardia, unspecified (CMS-HCC); Translations: [Supraventricular tachycardia, unspecified (CMS-HCC)]Onset: 42-58-6226CHALBCX: Highlighted row has not occurred!Residual codes; unclassified (2 sources)DiseaseEpisodic Results Test NameValueInterpretationReference RangeFacilityXR ANKLE LT MIN 3Von 25-51-1857[place]lq[place] [address] XRay Report Signed Patient: LUMA RIBEIRO MR#: [id number] : 1945 Acct:[id number] Age/Sex: 79 / F ADM Date: 02/17/25 Loc: RAD Attending Dr: Kelly Moses D.P.M. Ordering Physician: Kelly Moses D.P.M. Date of Service: 02/17/25 Procedure(s): XR ankle LT min 3V Accession Number(s): [id number] cc: ROC STEELE ; Kelly Moses D.P.M. The [address] [id number] Patient Name: LUMA RIBEIRO MRN: [id number]:[id number] date: 1945 Sex: F Assigned Patient Location: RAD Current Patient Location: RAD Accession/Order Number: [id number] Exam Date: 02/17/2025 10:50 Report Date: 02/17/2025 [...] Zeng M.D. 02/17/2025 1:59 PM Dictation Location: [place] [address] Electronically authenticated by: [id number] Date: 02/17/2025 13:59 Dictated By: Sushila Zeng M.D. Signed By: 02/17/25 1402 DD/ 1359 TD/TT: Management Engineer:TBHRadiology, Radiologist, - 02/17/2025 [place] [address] XRay Report Signed Patient: LUMA RIBEIRO MR#: [id number] : 1945 Acct:[id number] Age/Sex: 79 / F ADM Date: 02/17/25 Loc: RAD Attending Dr: Kelly Moses D.P.M. Ordering Physician: Kelly Moses D.P.M. Date of Service: 02/17/25 Procedure(s): XR ankle LT min 3V Accession Number(s): [id number] cc: ROC STEELE ; Kelly Moses D.P.M. The [address] [address] Patient Name: LUMA RIBEIRO MRN: [id number] date: 1945 Sex: F Assigned Patient Location: [facility] Current Patient Location: [facility] Accession/Order Number: [id number] Exam Date: 02/17/2025 10:50 Report Date: 02/17/2025 [...] Zeng M.D. 02/17/2025 1:59 PM Dictation Location: [place] [address] Electronically authenticated by: [id number] Y Date: 02/17/2025 13:59 Dictated By: Sushila Zeng M.D. Signed By: 02/17/25 1408 DD/ 1358 TD/TT: Management Engineer: FARZANEH HealthcareRadiology Study observation (narrative)[facility] HealthcareXR ANKLE LT MIN 3VOrdered By: Radiologist Radiology on 35-94-2581[facility] Work Phone: XR ANKLE LT MIN 3Von 76-15-3151[place]jpWoodbridge[place] [address] XRay Report Signed Patient: LUMA RIBEIRO MR#: [id number] : 1945 Acct:[id number] Age/Sex: 79 / F ADM Date: 01/23/25 Loc: RAD Attending Dr: Kelly Moses D.P.M. Ordering Physician: Kelly Moses D.P.M. Date of Service: 01/23/25 Procedure(s): XR ankle LT min 3V Accession Number(s): [id number] cc: ROC STEELE ; Kelly Moses D.P.M. The [address] [address] Patient Name: LUMA RIBEIRO MRN: TBH:[id number] date: 1945 Sex: F Assigned Patient Location: RAD Current Patient Location: RAD Accession/Order Number: [id number] Exam Date: 01/23/2025 13:15 Report Date: 01/23/2025 [...] Jr., D.O. 01/23/2025 1:46 PM Dictation Location: [place] [address] Electronically authenticated by: [id number] Y Date: 01/23/2025 13:46 Dictated By: Jayce De La Garza M.D. Signed By: 01/23/25 1349 DD/ 1346 TD/TT: Management Engineer:TBHRadiology, Radiologist, MD - 01/23/2025 [place] [address] XRay Report Signed Patient: LUMA RIBEIRO MR#: [id number] : 1945 Acct:[id number] Age/Sex: 79 / F ADM Date: 01/23/25 Loc: RAD Attending Dr: Kelly Moses D.P.M. Ordering Physician: Kelly Moses D.P.M. Date of Service: 01/23/25 Procedure(s): XR ankle LT min 3V Accession Number(s): [id number] cc: ROC STEELE ; Kelly Moses D.P.M. The [place] [id number] Patient Name: LUMA RIBEIRO MRN: [id number]:[id number] date: 1945 Sex: F Assigned Patient Location: [facility] Current Patient Location: RAD Accession/Order Number: [id number] Exam Date: 01/23/2025 13:15 Report Date: 01/23/2025 [...] Jr., D.O. 01/23/2025 1:46 PM Dictation Location: [place] [address] Electronically authenticated by: [id number] Y Date: 01/23/2025 13:46 Dictated By: Jayce De La Garza M.D. Signed By: 01/23/25 1349 DD/ 134 TD/TT: Management Engineer: FARZANEH HealthcareRadiology Study observation (narrative)[facility] HealthcareXR ANKLE LT MIN 3VOrdered By: Radiologist Radiology on 64-55-3008XRYB Healthcare Work Phone: MR LUMBAR SPINE WO CONon 99-36-4265BklWoodbridge[place] [address] Magnetic Resonance Report Signed Patient: LUMA RIBEIRO MR#: [id number] : 1945 Acct:[id number] Age/Sex: 78 / F ADM Date: 10/01/24 Loc: MRI Attending Dr: Daron Sanchez M.D. Ordering Physician: Daron Sanchez M.D. Date of Service: 10/01/24 Procedure(s): MR lumbar spine wo con Accession Number(s): [id number] cc: ROC STEELE ; Daron Sanchez M.D. The [place] [id number] Patient Name: LUMA RIBEIRO MRN: [id number]:[id number] date: 1945 Sex: F Assigned Patient Location: MRI Current Patient Location: MRI Accession/Order Number: [id number] Exam Date: 10/01/2024 14:28 Report Date: 10/01/2024 [...] Bach M.D. 10/01/2024 2:34 PM Dictation Location: [place] [address] Electronically authenticated by: [id number] Y Date: 10/01/2024 14:34 Dictated By: Srinivasa Bach M.D. Signed By: 10/01/24 1437 DD/ 1434 TD/TT: Management Engineer:TBHRadiology, Radiologist, MD - 10/01/2024 [place] [address] Magnetic Resonance Report Signed Patient: LUMA RIBEIRO MR#: [id number] : 1945 Acct:[id number] Age/Sex: 78 / F ADM Date: 10/01/24 Loc: MRI Attending Dr: Daron Sanchez M.D. Ordering Physician: Daron Sanchez M.D. Date of Service: 10/01/24 Procedure(s): MR lumbar spine wo con Accession Number(s): [id number] cc: ROC STEELE ; Daron Sanchez M.D. The [place] [address] Patient Name: LUMA RIBEIRO MRN: [facility]:[id number] date: 1945 Sex: F Assigned Patient Location: MRI Current Patient Location: MRI Accession/Order Number: [id number] Exam Date: 10/01/2024 14:28 Report Date: 10/01/2024 [...] Bach M.D. 10/01/2024 2:34 PM Dictation Location: [place] [address] Electronically authenticated by: [id number] Y Date: 10/01/2024 14:34 Dictated By: Srinivasa Bach M.D. Signed By: 10/01/24 1437 DD/ 1434 TD/TT: Management Engineer: FARZANEH [facility] HospitalRadiology Study observation (narrative)[facility]linMR LUMBAR SPINE WO CONOrdered By: Radiologist Radiology on 44-48-0626HMAQMercy Hospital Joplin Work Phone: NUCLEAR STRESS TESTon 12-44-5249VTNQWBM STRESS TEST Interpreted By: David Castle and Giannuzzi Michael STUDY: MYOCARDIAL PERFUSION STRESS TEST WITH LEXISCAN Performing facility: [facility], [address] [place] [address], [address], [address] Provider: Amber Hawley MD, FACC PCP: [...] Denies smoking. COMPARISON: No comparison. ACCESSION NUMBER(S): [id number] ORDERING CLINICIAN: AMBER HAWLEY TECHNIQUE: TWO DAY [...] David Castle 09/19/2024 3:00 PM Dictation workstation: [id number] County Community Hospital TRANSTHORACIC ECHO (TTE) COMPLETEon 09-83-6428QMCHILRAGXDOL ECHO (TTE) COMPLETE [address], [address] [place] [address] TRANSTHORACIC ECHOCARDIOGRAM REPORT Patient Name: LUMA Joya GEMA Deal Physician: [id number] David Castle MD, [facility] Study Date: 09/18/2024 Ordering Provider: [id number] AMBER HAWLEY MRN/PID: [id number] Fellow: Nurse: Date of /Age: 7 1945 / Radio Assembler: Viry ely RDCS, RVT Gender Assigned at F Additional Staff: : Height: 162.56 cm Admit Date: Weight: 122.02 kg Admission Status: Outpatient BSA / BMI: 2.22 m2 / 46.17 Department Location: [facility] kg/m2 [place] Blood Pressure: 124 /86 mmHg Study Type: TRANSTHORACIC ECHO (TTE) COMPLETE Diagnosis/ICD: Supraventricular tachycardia-I47.1; Abnormal electrocardiogram [ECG] [EKG]-R94.31; Palpitations-R00.2 Indication: Edema, HTN, Hyperlipidemia, Carotid Stenosis, CARO, CKD-Stage III, Morbid Obesity CPT Codes: Echo Complete w Full Doppler-65517 Study Detail: The following Echo studies were [...] Decel Rate: 338.04 c (more content not included)...Carle PlaceUnMercy Health St. Charles HospitalUS Heart TransthoracicOrdered By: David Castle on 40-90-3288Awyroi Valve Area by Continuity of Peak Velocity2.65 df9WcqvpbhxeoSumma Health [facility] Work Phone: [phone] Valve Area by Continuity of VTI1.93 cm2 [facility] Work Phone: [phone] mn viyu7jhYfGkybfxzygyBucyrus Community Hospital Work Phone: [phone] pk gcoo15euXwGptwymhktcUK Healthcare Work Phone: [phone] pk vel1.81 m/[facility] Work Phone: [phone] vol index A/L44.1 ml/d0PuuytolmrgUK Healthcare Work Phone: [phone] A4C EF42.7Un[facility] Work Phone: [phone] Biplane EF36 %[facility] Work Phone: [phone] EF63 %[facility] Work Phone: [phone] cmUnUK Healthcare Work Phone: [phone] diam2.27 [facility] Work Phone: [phone] avg E/e' ratio26.81[facility] Work Phone: MV E/A ratio0.79Un[facility] Work Phone: [phone] free wall pk S'15.98 cm/[facility] Work Phone: [facility] Work Phone: US Heart Transthoracicon 09-18-2024 [facility] [address] [place] [address], [address], [place] [address] TRANSTHORACIC ECHOCARDIOGRAM REPORT Patient Name: LUMA RIBEIRO Toyin Physician: [id number] David Castle MD, [facility] Study Date: 09/18/2024 Ordering Provider: [id number] AMBER HAWLEY MRN/PID: [id number] Fellow: Nurse: Date of /Age: 7 1945 Radio Assembler: Viry ely RDCS, RVT Gender Assigned at F Additional Staff: : Height: 162.56 cm Admit Date: Weight: 122.02 kg Admission Status: Outpatient BSA / BMI: 2.22 m2 / 46.17 Department Location: [facility] kg/m2 [place] Blood Pressure: 124 /86 mmHg Study Type: TRANSTHORACIC ECHO (TTE) COMPLETE Diagnosis/ICD: Supraventricular tachycardia-I47.1; Abnormal electrocardiogram [ECG] [EKG]-R94.31; Palpitations-R00.2 Indication: Edema, HTN, Hyperlipidemia, Carotid Stenosis, CARO, CKD-Stage III, Morbid Obesity CPT Codes: Echo Complete w Full Doppler-57033 Study Detail: The following Echo studies were [...] content not included)...David Romero MD - 09/18/[address], [address], [place] [address] TRANSTHORACIC ECHOCARDIOGRAM REPORT Patient Name: LUMA K GEMA Deal Physician: [id number] David Castle MD, [facility] Study Date: 09/18/2024 Ordering Provider: [id number] AMBER HAWLEY MRN/PID: [id number] Fellow: Nurse: Date of /Age: 7 1945 Radio Assembler: Viry ely RD, RVT Gender Assigned at F Additional Staff: : Height: 162.56 cm Admit Date: Weight: 122.02 kg Admission Status: Outpatient BSA / BMI: 2.22 m2 / 46.17 Department Location: [facility] Heart kg/m2 [place] Blood Pressure: 124 /86 mmHg Study Type: TRANSTHORACIC ECHO (TTE) COMPLETE Diagnosis/ICD: Supraventricular tachycardia-I47.1; Abnormal electrocardiogram [ECG] [EKG]-R94.31; Palpitations-R00.2 Indication: Edema, HTN, Hyperlipidemia, Carotid Stenosis, CARO, CKD-Stage III, Morbid Obesity CPT Codes: Echo Complete w Full Doppler-21230 Study Detail: The following Echo studies were [...] Dimensionless Index: 0.48 AORTI (more content not included)...[facility] Work Phone: LIPID PANEL, STANDARDon 79-19-4077Uihbvtudycx [Mass/Vol]153 mg/dLNormal<200Quest DiagnosticsComment on above:Order Comment: COLLECTION KIT GIVEN TO PATIENT. PATIENT ADVISED TO RETURN.Performed By: #### 7600 #### [facility] [address], [address] Pattern Chart Writer: Bryce LAMholesterol in HDL [Mass/Vol]49 mg/dLLow> OR = 50Quest DiagnosticsComment on above:Order Comment: COLLECTION KIT GIVEN TO PATIENT. PATIENT ADVISED TO RETURN.Performed By: #### 7740 #### [facility] [address], [address] [place], [place] [address] Pattern Chart Writer: Bryce LAMholesterol in LDL [Mass/Vol]82 mg/dLNormal Quest [...] LDL-C. Mike JURADO et al. MARGO. 2013;310(19): 7637-2341 (http://education.Localytics.Uskape/faq/SVS286)Performed By: #### 6290 #### [facility] [address], [address] [place], [place] [address] Pattern Chart Writer: Bryce LAMholestjose.total/Cholesterol in HDL [Mass ratio]3.1 {ratio}Normal<5.0Quest DiagnosticsComment on above:Order Comment: COLLECTION KIT GIVEN TO PATIENT. PATIENT ADVISED TO RETURN.Performed By: #### 6510 #### [facility] [address], [address] [place] [address] Pattern Chart Writer: Bryce BOOTH HDL KYXUSSPJNNE955 mg/dL (calc)Normal<130 Quest DiagnosticsComment on above:Order Comment: COLLECTION KIT GIVEN TO PATIENT. PATIENT ADVISED TO RETURN.Result Comment: For patients with diabetes plus 1 major ASCVD risk factor, treating to a non-HDL-C goal of <100 mg/dL (LDL-C of <70 mg/dL) is considered a therapeutic option.Performed By: #### 7600 #### [facility] [address], [address] [place] [address] Pattern Chart Writer: Bryce Larsen MDTriglyceride [Mass/Vol]121 mg/dLNormal<150 Quest DiagnosticsComment on above:Order Comment: COLLECTION KIT GIVEN TO PATIENT. PATIENT ADVISED TO RETURN.Performed By: #### 7600 #### [facility] [address], [address] [place] [address] Pattern Chart Writer: Bryce Larsen [facility] LIVINGEXA BONE DENSITYon 79-18-9119WGDW BONE DENSITYExamination: DEXA BONE DENSITY Clinical History: [...] Carlos Squires M.D.NormalNot AvailableMM TOMOSYNTHESIS SCREENING BIon 20-01-4418QnrWoodbridge[place] [address] Mammography Report Signed Patient: LUMA RIBEIRO MR#: [id number] : 1945 Acct:[id number] Age/Sex: 78 / F ADM Date: 07/17/24 Loc: MAMMO Attending Dr: ROC STEELE Ordering Physician: ROC STEELE Results: Date of Service: 07/17/24 Follow Up: Procedure(s): MM tomosynthesis screening BI Accession Number(s): [id number] cc: ROC STEELE Patient Name: LUMA RIBEIRO MR#: [id number] : 1945 Exam Date: 07/17/2024 Ordering Doctor: [...] [facility] BREAST COMPOSITION: There are scattered [...] Signed By: 07/18/24 1620 DD/ 1619 TD/TT: Management Engineer:TBHRadiology, Radiologist, MD - 07/18/2024 [place] [address] Mammography Report Signed Patient: LUMA RIBEIRO MR#: [id number] : 1945 Acct:[id number] Age/Sex: 78 / F ADM Date: 07/17/24 Loc: MAMMO Attending Dr: ROC STEELE Ordering Physician: ROC STEELE Results: Date of Service: 07/17/24 Follow Up: Procedure(s): MM tomosynthesis screening BI Accession Number(s): [id number] cc: ROC STEELE Patient Name: LUMA RIBEIRO MR#: [id number] : 1945 Exam Date: 07/17/2024 Ordering Doctor: [...] [facility] BREAST COMPOSITION: There are scattered [...] Signed By: 07/18/24 1620 DD/ 1619 TD/TT: Management Engineer: [facility]linRadiology Study observation (narrative)[facility] TOMOSYNTHESIS SCREENING BIOrdered By: Radiologist Radiology on 93-99-0821LFWLMercy Hospital Joplin Work Phone: ECG 12 Leadon 30-06-9995AsmgwomvmeSumma Health [facility] Work Phone: [facility] Work Phone: Laboratory - Hematology and Cell countson 07-11-2024 HbA1c (Bld) [Mass fraction]6.1 %[facility] JoplinNo Panel Informationon 07-11-2024 [facility] JoplinXR HIP 2 OR 3 VW RIGHTon 60-15-6296VN HIP 2 OR 3 VW RIGHTEXAM: XR [...] by the interpreting Radiologist.NormalNot AvailableCOMPREHENSIVE METABOLIC PANELon 10-52-4994Iogdpua [Mass/Vol]4.0 g/dLNormal3.6-5.1Quest DiagnosticsComment on above:Performed By: #### 52871, 622 #### [facility] [place] [address] Pattern Chart Writer: Bryce Larsen MDAlbumin/Globulin [Mass ratio]1.7 {ratio}Normal 1.0-2.5Quest DiagnosticsComment on above:Performed By: #### 90127, 622 #### [facility] [place] [address] Pattern Chart Writer: Bryce Larsen MDALP [Catalytic activity/Vol]99 U/RMxxbot30-741 Quest DiagnosticsComment on above:Performed By: #### 95715, 622 #### [facility] [place] [address] Pattern Chart Writer: Bryce Larsen MDALT [Catalytic activity/Vol]8 U/LNormal6-29 Quest DiagnosticsComment on above:Performed By: #### 94006, 622 #### [facility] [place] [address] Pattern Chart Writer: Bryce Larsen MDAST [Catalytic activity/Vol]19 U/YUxwubr93-36 Quest DiagnosticsComment on above:Performed By: #### 17210, 622 #### [facility] [place] [address] Pattern Chart Writer: Bryce Larsen MDBilirubin [Mass/Vol]0.6 mg/dLNormal0.2-1.2 Quest DiagnosticsComment on above:Performed By: #### 14283, 622 #### [facility] of [address], [address] [place] [address] Pattern Chart Writer: Bryce LAMalcium [Mass/Vol]8.9 mg/dLNormal8.6-10.4Quest DiagnosticsComment on above:Performed By: #### 04973, 622 #### [facility] of [place] [address] Pattern Chart Writer: Bryce Larsen MDChloride [Moles/Vol]104 mmol/FHvbyyl81-018 Quest DiagnosticsComment on above:Performed By: #### 34260, 622 #### [facility] of [place] [address] Pattern Chart Writer: Bryce Larsen MDCO2 [Moles/Vol]27 mmol/WNifalf05-52Wjdgz DiagnosticsComment on above:Performed By: #### 68410, 622 #### [facility] of [place] [address] Pattern Chart Writer: Bryce LAMreatinine [Mass/Vol]1.11 mg/dLHigh0.60-1.00 Quest DiagnosticsComment on above:Performed By: #### 68998, 622 #### [facility] [place] [address] Pattern Chart Writer: Bryce Larsen MDGFR/1.73 sq M.predicted among non-blacks MDRD (S/P/Bld) [Vol rate/Area]51 mL/min/{1.73_m2}Low> OR = 60Quest DiagnosticsComment on above:Performed By: #### 03722, 622 #### [facility] of [place] [address] Pattern Chart Writer: Bryce Larsen MDGlobulin (S) [Mass/Vol]2.3 g/dLNormal1.9-3.7 Quest DiagnosticsComment on above:Performed By: #### 11969, 622 #### [facility] [place] [address] Pattern Chart Writer: Bryce Larsen MDGlucose [Mass/Vol]145 mg/aCSfru38-139Ehkss DiagnosticsComment on above:Result Comment: Non-fasting reference interval For someone without known diabetes, a glucose value >125 mg/dL indicates that they may have diabetes and this should be confirmed with a follow-up test.Performed By: #### 75008, 622 #### [facility] [place] [address] Pattern Chart Writer: Bryce Larsen MDPotassium [Moles/Vol]4.2 mmol/LNormal3.5-5.3 Quest DiagnosticsComment on above:Performed By: #### 69833, 622 #### [facility] [place] [address] Pattern Chart Writer: Bryce Larsen MDProtein [Mass/Vol]6.3 g/dLNormal6.1-8.1Quest DiagnosticsComment on above:Performed By: #### 54812, 622 #### [facility] [place] [address] Pattern Chart Writer: Bryce Larsen MDSodium [Moles/Vol]138 mmol/ZVeyjfh599-553Uxxhv DiagnosticsComment on above:Performed By: #### 32404, 622 #### [facility] [place] [address] Pattern Chart Writer: Bryce Larsen MDUrea nitrogen [Mass/Vol]19 mg/dLNormal7-25 Quest DiagnosticsComment on above:Performed By: #### 66183, 622 #### [facility] [place] [address] Pattern Chart Writer: Bryce Larsen MDUrea nitrogen/Creatinine [Mass ratio]17 mg/mg Normal6-22Quest DiagnosticsComment on above:Performed By: #### 69779, 622 #### [facility] [address] [place] [address] Pattern Chart Writer: Bryce Larsen MDMAGNESIUMon 45-39-0925Vqpamtrpi [Mass/Vol]2.0 mg/dLNormal1.5-2.5Quest DiagnosticsComment on above:Order Comment: FASTING:NO FASTING: NOPerformed By: #### 37846, 622 #### [facility] [place] [address] Pattern Chart Writer: Bryce Larsen MDB TYPE NATRIURETIC PEPTIDE (BNP)on 06-12-2024 Natriuretic peptide B (Bld) [Mass/Vol]108 pg/mLHigh<100Quest DiagnosticsComment on above:Result Comment: BNP levels increase with age in the general population with the highest values seen in individuals greater than 75 years of age. Reference: J. Am. Vladislav. Cardiol. 2002; 40:976-982.Performed By: #### 40453 #### [facility] [place] [address] Pattern Chart Writer: Bryce Larsen MDCOMPREHENSIVE METABOLIC PANELon 05-23-2024 Albumin [Mass/Vol]3.6 g/dLNormal3.6-5.1Quest DiagnosticsComment on above: Performed By: #### 622, 84920 #### [facility] [place] [address] Pattern Chart Writer: Bryce Larsen MDAlbumin/Globulin [Mass ratio]1.3 {ratio}Normal 1.0-2.5Quest DiagnosticsComment on above:Performed By: #### 622, 75740 #### [facility] [place] [address] Pattern Chart Writer: Bryce Larsen MDALP [Catalytic activity/Vol]87 U/GVglmld29-334 Quest DiagnosticsComment on above:Performed By: #### 622, 76847 #### [facility] [place] [address] Pattern Chart Writer: Bryce Larsen MDALT [Catalytic activity/Vol]15 U/LNormal6-29 Quest DiagnosticsComment on above:Performed By: #### 622, 32315 #### [facility] of [place] [address] Pattern Chart Writer: Bryce Larsen MDAST [Catalytic activity/Vol]31 U/XKwymui17-78 Quest DiagnosticsComment on above:Performed By: #### 622, 33068 #### [facility] of [place] [address] Pattern Chart Writer: Bryce Larsen MDBilirubin [Mass/Vol]0.5 mg/dLNormal0.2-1.2 Quest DiagnosticsComment on above:Performed By: #### 622, 77639 #### [facility] of [place] [address] Pattern Chart Writer: Bryce Larsen MDCalcium [Mass/Vol]9.1 mg/dLNormal8.6-10.4Quest DiagnosticsComment on above:Performed By: #### 622, 38055 #### [facility] [place] [address] Pattern Chart Writer: Bryce Larsen MDChloride [Moles/Vol]103 mmol/VFdcdbp60-833 Quest DiagnosticsComment on above:Performed By: #### 622, 96166 #### [facility] of [place] [address] Pattern Chart Writer: Bryce Larsen MDCO2 [Moles/Vol]27 mmol/RVqnyvy15-45Vpiuf DiagnosticsComment on above:Performed By: #### 622, 71100 #### [facility] of [place] [address] Pattern Chart Writer: Bryce Larsen MDCreatinine [Mass/Vol]1.04 mg/dLHigh0.60-1.00 Quest DiagnosticsComment on above:Performed By: #### 622, 82459 #### [facility] of [address] [place] [address] Pattern Chart Writer: Bryce Larsen MDGFR/1.73 sq M.predicted among non-blacks MDRD (S/P/Bld) [Vol rate/Area]55 mL/min/{1.73_m2}Low> OR = 60Quest DiagnosticsComment on above:Performed By: #### 622, 88289 #### [facility] [address], [address] [place] [address] Pattern Chart Writer: Bryce Larsen MDGlobulin (S) [Mass/Vol]2.7 g/dLNormal1.9-3.7 Quest DiagnosticsComment on above:Performed By: #### 622, 22402 #### [facility] [place] [address] Pattern Chart Writer: Bryce Larsen MDGlucose [Mass/Vol]73 mg/lZNmxhvz40-595Qslku DiagnosticsComment on above:Result Comment: Non-fasting reference intervalPerformed By: #### 622, 72361 #### [facility] of [address], [address] [place] [address] Pattern Chart Writer: Bryce Larsen MDPotassium [Moles/Vol]4.7 mmol/LNormal3.5-5.3 Quest DiagnosticsComment on above:Performed By: #### 622, 75705 #### [facility] [place] [address] Pattern Chart Writer: Bryce Larsen MDProtein [Mass/Vol]6.3 g/dLNormal6.1-8.1Quest DiagnosticsComment on above:Performed By: #### 622, 14375 #### [facility] of [place] [address] Pattern Chart Writer: Bryce Larsen MDSodium [Moles/Vol]137 mmol/CNvkfcz833-838Romfa DiagnosticsComment on above:Performed By: #### 622, 69687 #### [facility] of [place] [address] [facility] [place] [address] Pattern Chart Writer: Bryce Larsen MDUrea nitrogen [Mass/Vol]15 mg/dLNormal7-25 Quest DiagnosticsComment on above:Performed By: #### 622, 05414 #### [facility] [address], [address] [place] [address] Pattern Chart Writer: Bryce Larsen MDUrea nitrogen/Creatinine [Mass ratio]14 mg/mg Normal6-22Quest DiagnosticsComment on above:Performed By: #### 622, 98104 #### [facility] [address], [address] [place] [address] Pattern Chart Writer: Bryce Larsen MDMAGNESIUMon 46-16-4461Xezqnapqi [Mass/Vol]1.9 mg/dLNormal1.5-2.5Quest DiagnosticsComment on above:Order Comment: FASTING:NO FASTING: NOPerformed By: #### 622, 52644 #### [facility] [address], [address] [place] [address] Pattern Chart Writer: Bryce Larsen [facility] BASIC METABOLIC PANELon 50-55-4311Spzja gap [Moles/Vol]12 mmol/LNOMS HealthcareCalcium [Mass/Vol]9 mg/dL8.5 - [...] mmol/L136 - 145 mmol/LNOMS HealthcareTBH EGFR-NON AF VGQJHKHG71Lvx>=60 mL/min/1.73m 2NOMS HealthcareUrea nitrogen [Mass/Vol]36 mg/dLHigh7.0 - 18.0 mg/dLNOMS HealthcareUrea nitrogen/Creatinine [Mass ratio]25.4 mg/mgNOMS HealthcareCLINISYNCNOMS HealthcareXR chest 2V*on 04-31-3851LB chest 2V*[facility] [address] [place] [address] XRay Report Signed Patient: Luma Ribeiro MR#: [id number] : 1945 Acct:[id number] Age/Sex: 78 / F ADM Date: 04/29/24 Loc: XDUC Room: Type: [facility] 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 APRN Copies [...] R Christopher M.D.04/29/2024 4:00 PM Dictation Location: [place] [address] Transcribed By: [facility] 04/29/24 1600 Dictated By: Jose R Christopher DO 04/29/24 1559 Signed By: 04/29/24 1600[facility] Physician GroupXR CHEST 2 VIEWSon 83-55-4581SV CHEST 2 VIEWSExam: XR CHEST 2 VIEWS [...] interpreting radiologist.NormalNot AvailableXR HAND 3+ VIEWS RIGHTon 56-32-8528QR HAND 3+ VIEWS RIGHTExam: XR HAND 3+ [...] Comment: Include hand and wristEMG 1 Extremeityon 82-39-2524DSCX HealthcareNVC 7-8 Nerveson 42-72-3622UPXI HealthcareECG 12-LEADon 77-64-3376Fks[address] [address] Electrocardiograph Report Signed Patient: LUMA RIBEIRO MR#: [id number] : 1945 Acct:[id number] Age/Sex: 77 / F ADM Date: 06/22/23 Loc: LAB Attending Dr: ALEX ALFREDO Ordering Physician: ALEX ALFREDO Date of Service: 06/22/23 Procedure(s): ECG 12 lead Accession Number(s): [id number] cc: [facility] Test Date: 2023-06-22 Pat Name: LUMA RIBEIRO Department: Room: - Gender: Female Hr Leader: : 1945 Requested By: ALEX ALFREDO Order Number: [id number] Reading MD: ELLIS DANIELSON Measurements Intervals [place] Rate: 84 P: 56 PA: 169 QRS: [...] D.O. Signed By: 06/22/23221806/22/232218 DD/ 23 TD/TT: Management Engineer:TBHRadiology, Radiologist, - 06/22/2023 [place] [address] Electrocardiograph Report Signed Patient: LUMA RIBEIRO MR#: [id number] : 1945 Acct:[id number] Age/Sex: 77 / F ADM Date: 06/22/23 Loc: LAB Attending Dr: ALEX ALFREDO Ordering Physician: ALEX ALFREDO Date of Service: 06/22/23 Procedure(s): ECG 12 lead Accession Number(s): [id number] cc: [facility] Test Date: 2023-06-22 Pat Name: LUMA RIBEIRO Department: Room: - Gender: Female Hr Leader: : 1945 Requested By: ALEX ALFREDO Order Number: [id number] Reading MD: ELLIS DANIELSON Measurements Intervals [place] Rate: 84 P: 56 PA: 169 QRS: [...] D.O. Signed By: 06/22/23221806/22/232218 DD/ 23 TD/TT: Management Engineer: FARZANEH HealthcareRadiology Study observation (narrative)[facility] HealthcareEC 12-LEAD Ordered By: Radiologist Radiology on 37-83-0271KAREMercy Hospital Joplin Work Phone: XR CHEST 2Von 75-67-9427[place] [address] XRay Report Signed Patient: LUMA RIBEIRO MR#: [id number] : 1945 Acct:[id number] Age/Sex: 77 / F ADM Date: 06/22/23 Loc: LAB Attending Dr: ALEX ALFREDO Ordering Physician: ALEX ALFREDO Date of Service: 06/22/23 Procedure(s): XR chest 2V Accession Number(s): [id number] cc: ROC STEELE ; ALEX ALFREDO [place] [address] Patient Name: LUMA RIBEIRO MRN: [id number] date: 1945 Sex: F Assigned Patient Location: LAB Current Patient Location: LAB Accession/Order Number: [id number] Exam Date: 06/22/2023 14:05 Report Date: 06/22/2023 [...] Signed By: 06/22/23 1519 DD/ 16 TD/TT: Management Engineer:LEOadiologashley, Radiologist, - 06/22/2023 [place] [address] XRay Report Signed Patient: LUMA RIBEIRO MR#: [id number] : 1945 Acct:[id number] Age/Sex: 77 / F ADM Date: 06/22/23 Loc: LAB Attending Dr: ALEX ALFREDO Ordering Physician: ALEX ALFREDO Date of Service: 06/22/23 Procedure(s): XR chest 2V Accession Number(s): [id number] cc: ROC STEELE ; ALEX ALFREDO [place] [address] Patient Name: LUMA RIBEIRO MRN: [id number] date: 1945 Sex: F Assigned Patient Location: LAB Current Patient Location: LAB Accession/Order Number: [id number] Exam Date: 06/22/2023 14:05 Report Date: 06/22/2023 [...] Signed By: 06/22/23 1519 DD/ 151 TD/TT: Management Engineer: FARZANEH PersaudRadiology Study observation (narrative)FARZANEH HealthcareXR CHEST 2V Ordered By: Radiologist Radiology on 87-67-0271TTGW appssavvy Work Phone: Established Visit (Orthopaedic Surgery)on 10-04-2022 [...] Complaint RT shoulder Ongoing issue 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 Distal pulses and sensation are intact. Limited forward flexion to about 25 degrees lateral abduction to about 15 unable to perform any external rotation but internal he can get to the small of her back. Herexam does not allow for much of a true Neer's Shelby or Earth's test. Diagnostics: See dictated report from today, previous outside CT scan report of the humerus reviewed, and is available in the [facility] chart. 1 Procedure: None Assessment: [...] the patient's CT scan report reviewed in [facility] chart Other 1 than the [...] grammatical areas may persist related to the [place] [employer] software (more content not included)...NormalUH TouchworksRadiologyon 05-92-7995VM Shoulder 2 ViewsNoCaroMont Health-San Antonio For OrthopedicsParkview Health [facility] Work Phone: SHOULDER, CMPLT, MIN 2 VIEWSon 18-88-0031ORAJZRXP, CMPLT, MIN 2 VIEWSMRN: [id number] Patient Name: LUMA RIBEIRO STUDY: SHOULDER, CMPLT, MIN 2 VIEWS; Right; 10/04/2022 1:49 pm INDICATION: pain M25.519: Shoulder pain. ACCESSION NUMBER(S): [id number] ORDERING CLINICIAN: TANIYA AL FINDINGS: Multiple views [...] anteromedial dislocation. Electronically signed by: TANIYA AL MDSt. Mary Rehabilitation HospitalCT HUMERUS RIGHT W/O CONTRASTon 21-96-5677QN HUMERUS RIGHT W/O CONTRAST History: Possible dislocated [...] and signed by Pernell Wiley on 09/12/2022 1127NoKettering Health PrebleXR Chest 2 Views*on 46-06-4254QQ Chest 2 Views*HISTORY: Recent fall, right rib [...] and signed by Pernell Wiley on 09/12/2022 1101NoKettering Health PrebleXR CHEST 2 Von 17-39-0677MK CHEST 2 VEXAMINATION: XR CHEST 2 V [...] Electronically authenticated by: ISAEL HANSEN Date: 2022-09-05 15:11[facility] HospitalXR KUB 1 VIEWon 06-25-1967LC KUB 1 VIEWEXAMINATION: XR KUB 1 VIEW [...] Electronically authenticated by: ISAEL HANSEN Date: 2022-09-05 15:10[facility] HospitalAMYLASEon 26-29-0275Pkvuffn [Catalytic activity/Vol]34 U/L Skcibz18-259KkhFairfield Medical CenterComment on above:Performed By: #### LIPA, CMP, CMADM, BNP, GRACIELA #### [facility] [address] [place] [address] Dr. Yonny Haddad 50-50-7306Kafqqvrtbtq peptide B (Bld) [Mass/Vol]241.0 pg/mL Normal<=1,800.0The [facility] Medical CenterComment on above:Performed By: #### LIPA, CMP, CMADM, BNP, GRACIELA #### [facility] [address] [place] [address] Dr. Yonny Gomez SRINIVASA ADMITon 91-86-0476YG [Catalytic activity/Vol]154 U/L Yricds69-841Mqj [facility] CenterComment on above:Performed By: #### LIPA, CMP, CMADM, BNP, GRACIELA #### [facility] [address] [place] [address] Dr. Yonny Guillen.MB [Mass/Vol]1.42 ng/mLNormal<=3.60[facility] Comment on above:Performed By: #### LIPA, CMP, CMADM, BNP, GRACIELA #### [facility] [address] [place] [address] Dr. Yonny AmbrosioTROP13.9 pg/mLNormal4.0-51.3The [facility] Medical CenterComment on above:Result Comment: CUT-OFF POINTS HAVE BEEN ESTABLISHED BASED ON THE FOURTH UNIVERSAL DEFINITIONS OF MYOCARDIAL INFARCTION. THE UPPER REFERENCE LIMIT (URL) OF TROPONIN, DEFINED THE 99TH PERCENTILE OF cTnI DISTRIBUTION IN A REFERENCE POPULATION, HAS BEEN CONFIRMED THE DECISION THRESHOLD FOR CA DIAGNOSIS.Performed By: #### LIPA, CMP, CMADM, BNP, GRACIELA #### [facility] [address] [place] [address] Dr. Yonny Slater63 ng/mLNormal9-82The [facility] CenterComment on above: Performed By: #### LIPA, CMP, CMADM, BNP, GRACIELA #### [facility] [address] [place] [address] Dr. Yonny Block AUTO DIFFon 11-55-3866XUYX #0.0 103/ulNormal0.0-0.1The Phoenix HospitalComment on above:Performed By: #### LIPA, CMP, CMADM, BNP, GRACIELA #### [facility] [address] [place] [address] Dr. Yonny MezaBasophils/100 WBC (Bld)0.4 %Normal0.2-2.0The [facility] Comment on above:Performed By: #### LIPA, CMP, CMADM, BNP, GRACIELA #### [facility] [address] [place] [address] Dr. Yonny Milner #0.1 103/ulNormal0.0-0.7The [facility] Medical CenterComment on above: Performed By: #### LIPA, CMP, CMADM, BNP, GRACIELA #### [facility] [address] [place] [address] Dr. Yonny Mendozaosinophils/100 WBC (Bld)1.6 %Normal0.9-7.0The [facility] Comment on above:Performed By: #### LIPA, CMP, CMADM, BNP, GRACIELA #### [facility] [address] [place] [address] Dr. Yonny Mendozarythrocyte distribution width (RBC) [Ratio]12.6 %Zolsdw60.0-15.0 The [facility] CenterComment on above:Performed By: #### LIPA, CMP, CMADM, BNP, GRACIELA #### [facility] [address] [place] [address] Dr. Yonny MezaHematocrit (Bld) [Volume fraction]38.9 %Ivdhgw67.0-48.0The [facility] CenterComment on above:Performed By: #### LIPA, CMP, CMADM, BNP, GRACIELA #### [facility] [address] [place] [address] Dr. Yonny MezaHemoglobin (Bld) [Mass/Vol]13.0 g/dNXkwoyf46.0-16.0The [facility] CenterComment on above:Performed By: #### LIPA, CMP, CMADM, BNP, GRACIELA #### [facility] [address] [place] [address] Dr. Yonny MezaIG #0.02 10e3/ulNormal0.00-0.03The [facility] CenterComment on above:Performed By: #### LIPA, CMP, CMADM, BNP, GRACIELA #### [facility] [address] [place] [address] Dr. Yonny Lester %0.3 %Normal0.0-0.5The [facility] Medical CenterComment on above: Performed By: #### LIPA, CMP, CMADM, BNP, GRACIELA #### [facility] [address] [place] [address] Dr. Yonny Concepcion #2.0 103/ulNormal1.2-3.8The [facility] Medical CenterComment on above:Performed By: #### LIPA, CMP, CMADM, BNP, GRACIELA #### [facility] [address] [place] [address] Dr. Yonny Aburtocytes/100 WBC (Bld)25.3 %Bldoay51.5-60.0The [facility] Medical CenterComment on above:Performed By: #### LIPA, CMP, CMADM, BNP, GRACIELA #### [facility] [address] [place] [address] Dr. Yonny Scott DIFF REQNONormalThe [facility] Medical CenterComment on above: Performed By: #### LIPA, CMP, CMADM, BNP, GRACIELA #### [facility] [address] [place] [address] Dr. Yonny Castañeda (RBC) [Entitic mass]31.8 suVegdkn78.7-34.0The [facility] Medical CenterComment on above:Performed By: #### LIPA, CMP, CMADM, BNP, GRACIELA #### [facility] [address] [place] [address] Dr. Yonny Castañeda (RBC) [Mass/Vol]33.4 g/tJKnrlgf73.9-35.2The [facility] Medical CenterComment on above:Performed By: #### LIPA, CMP, CMADM, BNP, GRACIELA #### [facility] [address] [place] [address] Dr. Yonny Underwood (RBC) [Entitic vol]95.1 bBZjvnzk69.0-99.0The [facility] Medical CenterComment on above:Performed By: #### LIPA, CMP, CMADM, BNP, GRACIELA #### [facility] [address] [place] [address] Dr. Yonny Martinez #0.9 103/ulCritically high0.3-0.8The [facility] Comment on above:Performed By: #### LIPA, CMP, CMADM, BNP, GRACIELA #### [facility] [address] [place] [address] Dr. Yonny Lamocytes/100 WBC (Bld)11.5 %Normal1.7-12.0[facility] Comment on above:Performed By: #### LIPA, CMP, CMADM, BNP, GRACIELA #### [facility] [address] [place] [address] Dr. Yonny Narayan #4.8 103/ulNormal1.4-6.5The [facility] CenterComment on above:Performed By: #### LIPA, CMP, CMADM, BNP, GRACIELA #### [facility] [address] [place] [address] Dr. Yonny Leachutrophils/100 WBC (Bld)60.9 %Pxapgy53.0-75.0The [facility] CenterComment on above:Performed By: #### LIPA, CMP, CMADM, BNP, GRACIELA #### [facility] [address] [place] [address] Dr. Yonny Avilez mean volume (Bld) [Entitic vol]10.1 fLNormal9.5-13.5The [facility] Medical CenterComment on above:Performed By: #### LIPA, CMP, CMADM, BNP, GRACIELA #### [facility] [address] [place] [address] Dr. Yonny RdzT252 103/bnQklpjv509-075Zms [facility] CenterComment on above: Performed By: #### LIPA, CMP, CMADM, BNP, GRACIELA #### [facility] [address] [place] [address] [address] Yonny MezaRBC4.09 106/ulCritically low4.20-5.40The [facility] Medical CenterComment on above:Performed By: #### LIPA, CMP, CMADM, BNP, GRACIELA #### [facility] [address] [place], [place] [address] Dr. Yonny MezaWBC7.9 103/ulNormal4.0-11.0The [facility] Medical CenterComment on above: Performed By: #### LIPA, CMP, CMADM, BNP, GRACIELA #### [facility] [address] [place], [place] [address] Dr. Yonny MezaCT ABD/PELVIS WO CONon 25-69-8032ZP ABD/PELVIS WO CONEXAM: CT SCAN OF THE [...] Electronically authenticated by: HATTIE [place] Date: 2022-09-03 01:11[facility] URINE PROFILEon 61-21-8540Sulmwzkml Ql (U)NegativeNormal NEGATIVEFairfield Medical CenterComment on above:Performed By: #### LIPA, CMP, CMADM, BNP, GRACIELA #### [facility] [address] [place] [address] [address] Yonny Tong (U)CLEARNormalCLEARFairfield Medical CenterComment on above: Performed By: #### LIPA, CMP, CMADM, BNP, GRACIELA #### [facility] [address] [place] [address] [address] Yonny Guerrero (U)LT. YELLOWNormalYELLOWFairfield Medical CenterComment on above:Performed By: #### LIPA, CMP, CMADM, BNP, GRACIELA #### [facility] [address] [place] [address] [address] Yonny Rios micrscopic examination will be performed if indicated. NormalThe [facility] Medical CenterComment on above:Performed By: #### LIPA, CMP, CMADM, BNP, GRACIELA #### [facility] [address] [place] [address] [address] Yonny Agarwalose Ql (U)NegativeNormalNEGATIVEFairfield Medical CenterComment on above:Performed By: #### LIPA, CMP, CMADM, BNP, GRACIELA #### [facility] [address] [place] [address] [address] Yonny MezaHemoglobin Ql (U)NegativeNormalNEGATIVEFairfield Medical Center Comment on above:Performed By: #### LIPA, CMP, CMADM, BNP, GRACIELA #### [facility] [address] [place] [address] [address] Yonny Aliceaones Ql (U)NegativeNormalNEGATIVEFairfield Medical CenterComment on above:Performed By: #### LIPA, CMP, CMADM, BNP, GRACIELA #### [facility] [address] [place] [address] Dr. Yonny MezaLEUKOCYTESNegativeNormalNEGATIVEFairfield Medical CenterComment on above:Performed By: #### LIPA, CMP, CMADM, BNP, GRACIELA #### [facility] [address] [place] [address] Dr. Yonny Honeycutttrite Ql (U)NegativeNormalNEGATIVEFairfield Medical CenterComment on above:Performed By: #### LIPA, CMP, CMADM, BNP, GRACIELA #### [facility] [address] [place] [address] Dr. Yonny MezapH (U)7.0 [pH]Normal5-9The [facility] Medical CenterComment on above: Performed By: #### LIPA, CMP, CMADM, BNP, GRACIELA #### [facility] [address] [place] [address] Dr. Yonny MezaSPEC GRAVITY1.888Gzqtwo4.005-<=1.025Fairfield Medical CenterComment on above:Performed By: #### LIPA, CMP, CMADM, BNP, GRACIELA #### [facility] [address] [place] [address] Dr. Yonny MezaUA PROTEINNegativeNormalNEGATIVE/ TRACEFairfield Medical Center Comment on above:Performed By: #### LIPA, CMP, CMADM, BNP, GRACIELA #### [facility] [address] [place] [address] Dr. Yonny GARCES INDNOT INDICATEDNormalThe [facility] CenterComment on above:Performed By: #### LIPA, CMP, CMADM, BNP, GRACIELA #### [facility] [address] [place] [address] [address] Yonny Monkbilino Qn (U)0.2 {Arnaud'U}/dLNormal0.2 - 1.0The [facility] CenterComment on above:Performed By: #### LIPA, CMP, CMADM, BNP, GRACIELA #### [facility] [address] [place] [address] [address] Yonny LopezCTATE/LACTIC ACIDon 25-05-6135Winfkku [Moles/Vol]2.3 mmol/L Critically high0.4-2.0The [facility] on above:Performed By: #### LACT #### [facility] [address] [place] [address] Dr. Yonny MezaLactate [Moles/Vol]2.2 mmol/LCritically high0.4-2.0The [facility] on above:Performed By: #### LIPA, CMP, CMADM, BNP, GRACIELA #### [facility] [address] [place] [address] Dr. Yonny MezaLIPASEon 38-50-3601Gbfrmh [Catalytic activity/Vol]88.0 U/LNormal 73.0-393.0The [facility] on above:Performed By: #### LIPA, CMP, CMADM, BNP, GRACIELA #### [facility] [address] [place] [address] Dr. Yonny MezaPROF 14(COMP METB)on 85-94-9551Bydqiue [Mass/Vol]3.3 g/dL Critically low3.4-5.0The [facility] on above:Performed By: #### LIPA, CMP, CMADM, BNP, GRACIELA #### [facility] [address] [place] [address] Dr. Yonny MezaAlbumin/Globulin [Mass ratio]0.9 {ratio}NormalThe Nya HospitalComment on above:Performed By: #### LIPA, CMP, CMADM, BNP, GRACIELA #### [facility] [address] [place] [address] Dr. Yonny Benítez [Catalytic activity/Vol]122 U/LCritically jflr08-661Zzc [facility] CenterComment on above:Performed By: #### LIPA, CMP, CMADM, BNP, GRACIELA #### [facility] [address] [place] [address] Dr. Yonny Montana [Catalytic activity/Vol]21 U/DZffmnz43-90Wvw [facility] CenterComment on above:Performed By: #### LIPA, CMP, CMADM, BNP, GRACIELA #### [facility] [address] [place] [address] Dr. Yonny Robinson gap [Moles/Vol]12.4 mmol/LNormalFairfield Medical Center Comment on above:Performed By: #### LIPA, CMP, CMADM, BNP, GRACIELA #### [facility] [address] [place] [address] Dr. Yonny Chu [Catalytic activity/Vol]24 U/IFonttn87-36Kog [facility] CenterComment on above:Performed By: #### LIPA, CMP, CMADM, BNP, GRAICELA #### [facility] [address] [place] [address] Dr. Yonny MezaBilirubin [Mass/Vol]0.4 mg/dLNormal0.2-1.0The [facility] Comment on above:Performed By: #### LIPA, CMP, CMADM, BNP, GRACIELA #### [facility] [address] [place] [address] Dr. Yonny MezaCalcium [Mass/Vol]8.7 mg/dLNormal8.5-10.1[facility] Comment on above:Performed By: #### LIPA, CMP, CMADM, BNP, GRACIELA #### [facility] [address] [place] [address] Dr. Yonny MezaChloride [Moles/Vol]105 mmol/FDchgwn30-641Apb [facility] Comment on above:Performed By: #### LIPA, CMP, CMADM, BNP, GRACIELA #### [facility] [address] [address] [address] Yonny MezaCO2 [Moles/Vol]28.0 mmol/FJnwazi51.0-32.0The [facility] Comment on above:Performed By: #### LIPA, CMP, CMADM, BNP, GRACIELA #### [facility] [address] [place] [address] Dr. Yonny MezaCreatinine [Mass/Vol]1.11 mg/dLCritically high0.55-1.02The [facility] CenterComment on above:Performed By: #### LIPA, CMP, CMADM, BNP, GRACIELA #### [facility] [address] [place] [address] Dr. Blancas ChangEGFR-AF FUCOEODE99 mL/min/1.48k5Mazljtttaa low>=60The [facility] CenterComment on above:Performed By: #### LIPA, CMP, CMADM, BNP, GRACIELA #### [facility] [address] [place] [address] Dr. Yonny MendozaGFR-NON AF PZNRBMXK72 mL/min/1.40j9Rdxniczmxg low>=60The [facility] CenterComment on above:Performed By: #### LIPA, CMP, CMADM, BNP, GRACIELA #### [facility] [address] [place] [address] Dr. Yonny MezaGlobulin (S) [Mass/Vol]3.7 g/dLNormalThe [facility] CenterComment on above:Performed By: #### LIPA, CMP, CMADM, BNP, GRACIELA #### [facility] [address] [place] [address] Dr. Yonny MzeaGlucose [Mass/Vol]152 mg/dLCritically qhbx68-381Ump [facility] CenterComment on above:Performed By: #### LIPA, CMP, CMADM, BNP, GRACIELA #### [facility] [address] [place] [address] Dr. Yonny MezaPotassium [Moles/Vol]3.4 mmol/LCritically low3.5-5.1The [facility] CenterComment on above:Performed By: #### LIPA, CMP, CMADM, BNP, GRACIELA #### [facility] [address] [place] [address] Dr. Yonny MezaProtein [Mass/Vol]7.0 g/dLNormal6.4-8.2The [facility] Comment on above:Performed By: #### LIPA, CMP, CMADM, BNP, GRACIELA #### [facility] [address] [place] [address] Dr. Yonny MezaSodium [Moles/Vol]142 mmol/BBheoyd559-622Hyn [facility] Comment on above:Performed By: #### LIPA, CMP, CMADM, BNP, GRACIELA #### [facility] [address] [place] [address] Dr. Yonny MezaUrea nitrogen [Mass/Vol]14.0 mg/dLNormal7.0-18.0The [facility] CenterComment on above:Performed By: #### LIPA, CMP, CMADM, BNP, GRACIELA #### [facility] [address] [place] [address] Dr. Yonny Villatoro nitrogen/Creatinine [Mass ratio]12.6 mg/mgNoUniversity Hospitals Elyria Medical CenterComment on above:Performed By: #### LIPA, CMP, CMADM, BNP, GRACIELA #### [facility] [address] [place] [address] Dr. Yonny MezaPROTIMEon 9516NEV Coag (PPP) [Relative time]1.05 {INR} NormalFairfield Medical CenterComment on above:Performed By: #### LIPA, CMP, CMADM, BNP, GRACIELA #### [facility] [address] [place] [address] Dr. Yonny Pena GUIDELINESSEE BELOWMorrow County HospitalComment on above:Result Comment: DESIRED INR: 2.0 - 3.0 CONDITIONS NOT LISTED BELOW 2.5 - 3.5 FOR PROSTHETIC HEART VALVE REPLACEMENT 2.5 - 3.5 RECURRENT THROMBOSIS Performed By: #### LIPA, CMP, CMADM, BNP, GRACIELA #### [facility] [address] [place], [place] [address] Dr. Yonny MezaPT Coag (PPP) [Time]11.1 sNormal9.0-11.6The [facility] Comment on above:Performed By: #### LIPA, CMP, CMADM, BNP, GRACIELA #### [facility] [address] [place], [place] [address] Dr. Yonny MezaPTDignity Health [facility] 12-10-4888iRRU Coag (Bld) [Time]26.7 bVkdjww79.3-36.2Fairfield Medical CenterComment on above:Performed By: #### LIPA, CMP, CMADM, BNP, GRACIELA #### [facility] [address] [place], [place] [address] Dr. Yonny MezaXR CHEST 1 Von [id number] CHEST 1 VCHEST X-RAY HISTORY: Chest pain [...] Electronically authenticated by: HATTIE [place] Date: 2022-09-03 00:08NoUniversity Hospitals Elyria Medical CenterMG MAMM SCREEN 3D RON CADon [id number] MAMM SCREEN 3D RON CAD Patient: LUMA RIBEIRO Exam Date: 06/06/2022 : 1945 Gender:F Ordering : DR ROC STEELE M.D. Admission #: [id number] Family : Order #: [id number] CLICK HERE TO VIEW EXAM RADIOLOGY REPORT [...] by: Lisa Frederick MD on 06/07/2022 at 08:09Morrow County HospitalNo Panel Informationon [id number] click on the link to view the study images [facility] Work Phone: Radiologyon [id number] Pelvis and Hip - left 2 Views [facility] Work Phone: MRI Humerus w/wo Contraston [id number] Humerus w/wo ContrastNoCaroMont Health-[facility] Work Phone: Otheron 08-14-5011Tuhzbybosph by: TASIA ALARCON 15:34MRN: [id number] Name: LUMA RIBEIRO STUDY:HIP, UNILATERAL W/PELVIS WHEN PERFORMED 2-3 VIEWS; Right;02/13/2020 1:58 pm INDICATION:pain. 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 No acute bony abnormality orperiprostheticfracture appreciated. Electronically signed by: TASIA BIRD 02/13/20 15:34NoDe[facility] [place] Work Phone: Complete Blood Count + Differentialon 10-01-2020 Basophils (Bld) [#/Vol]0.04 {x10E9/L}See [facility] [place] Work Phone: [phone] on above:Reference Range: 0.00 - 0.10 Basophils/100 WBC (Bld)0.2 %0.0 - 2.0[facility] Work Phone: [phone] (Bld) [#/Vol]0.01 {x10E9/L}See [facility] For [facility] [place] Work Phone: [phone] on above:Reference Range: 0.00 - 0.40 Eosinophils/100 WBC (Bld)0.1 %0.0 - 6.0[facility] Work Phone: [phone] distribution width (RBC) [Ratio]13.1 %See [facility] For [facility] Work Phone: [phone] on above:Reference Range: 11.5 - 14.5 Hematocrit (Bld) [Volume fraction]34.8 %below low thresholdSee [facility] For [facility] Work Phone: [phone] on above:Reference Range: 36.0 - 46.0 Hemoglobin (Bld) [Mass/Vol]11.3 g/dLbelow low thresholdSee [facility] For [facility] Work Phone: [phone] on above:Reference Range: 12.0 - 16.0 Lymphocytes (Bld) [#/Vol]2.21 {x10E9/L}See [facility] For [facility] [place] Work Phone: [phone] on above:Reference Range: 0.80 - 3.00 Lymphocytes/100 WBC (Bld)12.5 %See [facility] For [facility] [place] Work Phone: [phone] on above:Reference Range: 13.0 - 44.0MCHC (RBC) [Mass/Vol]32.5 g/dLSee [facility] HospitalJeff [employer] Work Phone: [phone] on above:Reference Range: 32.0 - 36.0MCV (RBC) [Entitic vol]99 fL80 - 100MP-[place] [facility] [place] Work Phone: [phone] (Bld) [#/Vol]1.82 {x10E9/L}above high thresholdSee [facility] [facility] [place] Work Phone: [phone] on above:Reference Range: 0.05 - 0.80 Monocytes/100 WBC (Bld)10.3 %2.0 - 10.0MP-[place] [facility] [employer] Work Phone: Neutrophils/100 WBC (Bld)76.3 %See Below-[place] [facility] [place] Work Phone: Comment on above:Reference Range: 40.0 - 80.0Platelets (Bld) [#/Vol]234 {x10E9/L}150 - 450MP-[place] [facility] [employer] Work Phone: RBC (Bld) [#/Vol]3.52 {x10E12/L}below low thresholdSee [facility] [facility] [place] Work Phone: Comment on above:Reference Range: 4.00 - 5.20WBC (Bld) [#/Vol]17.7 {x10E9/L}above high threshold4.4 - 11.3MP-[place] [facility] [employer] Work Phone: Complete Blood Count + Differential0.6 %0.0 - 0.9MP- [place] [facility] [employer] Work Phone: Comment on above:Immature Granulocyte Count (IG) includes promyelocytes, myelocytes and metamyelocytes but does not include bands. Percent differential counts (%) should be interpreted in the context of the absolute cell counts (cells/L).Complete Blood Count + Gksvukiszpfk03.52 {x10E9/L}above high thresholdSee Below-[facility] Work Phone: [phone] on above:Reference Range: 1.60 - 5.50Metabolic Panelon 48-04-4235Bvhro gap [Moles/Vol]8 mmol/Lbelow low gutwxcocs96 - 20MP- [facility] Work Phone: [phone] [Mass/Vol]8.8 mg/dL8.6 - 10.3MP-[facility] [place] Work Phone: Chloride [Moles/Vol]101 mmol/L98 - 107MP-[facility] Work Phone: XT2 [Moles/Vol]32 mmol/L21 - 32MP-[facility] [place] Work Phone: Creatinine [Mass/Vol]1.00 mg/dLSee Below-[facility] Work Phone: [phone] on above:Reference Range: 0.50 - 1.05Glucose [Mass/Vol]128 mg/dLabove high oeoannyrl19 - 99MP-[facility] [place] Work Phone: Potassium [Moles/Vol]4.2 mmol/L3.5 - 5.3MP-[facility] [place] Work Phone: Sodium [Moles/Vol]137 mmol/L136 - 145MP-[facility] Work Phone: Urea nitrogen [Mass/Vol]14 mg/dL6 - 23MP-[facility] Work Phone: [phone] {mL/min/1.73m2}>60MP-[facility] Work Phone: [phone] on above:CALCULATIONS OF ESTIMATED GFR ARE PERFORMED USING THE MDRD STUDY EQUATION FOR THE IDMS-TRACEABLE CREATININE METHODS. CLIN CHEM 2007;53:766-7254 {mL/min/1.73m2}Abnormal>60MP-[facility] Work Phone: Otheron 63-57-9688Theoawcirve by: ASYGSY28/01/20 15:21MRN: [id number] Name: LUMA RIBEIRO STUDY:HIP, UNILATERALW/PELVIS WHEN PERFORMED 2-3 VIEWS; 01/29/2020 12:25 pm INDICATION:s/p right ROSSANA. COMPARISON:01/16/2020 ORDERING CLINICIAN:TASIA BIRD FINDINGS:Pelvis and right hip, threeviews Interval right total hip arthroplasty noted without periprostheticfracture or lucency. There is no dislocation. IMPRESSION:Right total hip arthroplasty without immediate complicationsElectronically signed by: RAJIV 01/30/20 15:21NoTexas [facility] Work Phone: XR Pelvis 1 or 2 viewsPlease click on the link to view the study imagesNoTexas Health Frisco Work Phone: Coronavirus 2019 RNA by PCR, Screening Asymptomticon 10-07-1845Prxqscizokl 2019 RNA by PCR, Screening AsymptomticNOT DETECTEDSee [facility] Work Phone: Comment on above:SOURCE: Nasal, NasopharyngealReference [...] make patient management decisions.Fact sheet for providers: https://www.fda.gov/media/663908/downloadFact sheet for patients: https://www.fda.gov/media/024818/downloadThis test has received FDA Emergency Use Authorization (EUA) and has been verified by [facility] ([facility]). This test is only authorized for the duration oftime that circumstances exist to justify the authorization of the emergency use of in vitro diagnostic tests for the detection of SARS-CoV-2 virus and/or diagnosis of COVID-19 infection under ayqbtnx427(b)(1) of the Act, 21 U.S.C. 360bbb- 3(b)(1), unless the authorization is terminated or revoked sooner. [facility] is certified under CLIA-88 as qualified to perform high complexity testing. Testing is performed in the [facility] laboratories located at [address] [place] [address].Activated Partial Thromboplastin Timeon 26-01-9226uHOO Coag (PPP) [Time]29 {sec}25 - 35MP-[facility] Work Phone: Comment on above:THE APTT IS NO LONGER USED FOR MONITORING UNFRACTIONATED HEPARIN THERAPY. FOR MONITORING HEPARIN THERAPY, USE THE HEPARIN ASSAY.Complete Blood Count + Differentialon 53-56-4200Isitgghwk (Bld) [#/Vol]0.04 {x10E9/L}[facility] [place] Work Phone: Comment on above:Reference Range: 0.00 - 0.10 Basophils/100 WBC (Bld)0.5 %0.0 - 2.0MP-[facility] Work Phone: [phone] (Bld) [#/Vol]0.09 {x10E9/L}See Below- [facility] Work Phone: [phone] on above:Reference Range: 0.00 - 0.40 Eosinophils/100 WBC (Bld)1.0 %0.0 - 6.0MP-[facility] [place] Work Phone: [phone] distribution width (RBC) [Ratio]12.9 %[facility]Still[facility] [place] Work Phone: [phone] on above:Reference Range: 11.5 - 14.5 Hematocrit (Bld) [Volume fraction]44.6 %See [facility] [place] Work Phone: Comment on above:Reference Range: 36.0 - 46.0 Hemoglobin (Bld) [Mass/Vol]14.5 g/dLSee [facility] Work Phone: [phone] on above:Reference Range: 12.0 - 16.0 Lymphocytes (Bld) [#/Vol]3.41 {x10E9/L}above high thresholdSee [facility] Work Phone: [phone] on above:Reference Range: 0.80 - 3.00 Lymphocytes/100 WBC (Bld)38.4 %See [facility] [place] Work Phone: Comment on above:Reference Range: 13.0 - 44.0MCHC (RBC) [Mass/Vol]32.5 g/dLSee [facility] [place] Work Phone: Comment on above:Reference Range: 32.0 - 36.0MCV (RBC) [Entitic vol]100 fL80 - 100[facility] [place] Work Phone: Monocytes (Bld) [#/Vol]0.81 {x10E9/L}above high thresholdSee [facility] Work Phone: [phone] on above:Reference Range: 0.05 - 0.80 Monocytes/100 WBC (Bld)9.1 %2.0 - 10.0[facility] Work Phone: Neutrophils (Bld) [#/Vol]4.49 {x10E9/L}See [facility] Work Phone: [phone] on above:Reference Range: 1.60 - 5.50 Neutrophils/100 WBC (Bld)50.7 %See BelowMP-[facility] [place] Work Phone: [phone] on above:Reference Range: 40.0 - 80.0Platelets (Bld) [#/Vol]261 {x10E9/L}150 - 450MP-[place] [facility] [place] Work Phone: RBC (Bld) [#/Vol]4.48 {x10E12/L}See Below-[facility] Work Phone: Comment on above:Reference Range: 4.00 - 5.20WBC (Bld) [#/Vol]8.9 {x10E9/L}4.4 - 11.3MP-[facility] Work Phone: Complete Blood Count + Differential0.3 %0.0 - 0.9- [facility] [place] Work Phone: [phone] on above:Immature Granulocyte Count (IG) includes promyelocytes, myelocytes and metamyelocytes but does not include bands. Percent differential counts (%) should be interpreted in the context of the absolute cell counts (cells/L).Fructosamine, Serumon 10-73-6347Rpaipkzjyjdp [Moles/Vol]265 umol/B9-655OJ-EvukewAt[facility] [place] Work Phone: Comment on above:Published reference interval for apparently healthy subjectsbetween age 20 and 60 is 205 - 285 umol/L and in a poorlycontrolled diabetic population is 228 - 563 umol/L with amean of 396 umol/L.Hematologyon 91-51-8165ERP Coag (PPP) [Relative time]1.1 {INR}0.9 - 1.1 -[facility] [place] Work Phone: PT Coag (PPP) [Time]13.0 {sec}See Below-[facility] [place] Work Phone: [phone] on above:Reference Range: 10.1 - 13.3Metabolic Panelon 92-26-3307BAB [Catalytic activity/Vol]100 U/L33 - 136MP-[facility] Work Phone: Anion gap [Moles/Vol]13 mmol/L10 - 20MP-[facility] Work Phone: Bilirubin [Mass/Vol]0.6 mg/dL0.0 - 1.2MP-[facility] Work Phone: Calcium [Mass/Vol]9.7 mg/dL8.6 - 10.3MP-[facility] Work Phone: Chloride [Moles/Vol]101 mmol/L98 - 107MP-[facility] Work Phone: GL8 [Moles/Vol]32 mmol/L21 - 32MP-[facility] Work Phone: Creatinine [Mass/Vol]1.01 mg/dLSee BelowMP-[facility] Work Phone: Comment on above:Reference Range: 0.50 - 1.05Glucose [Mass/Vol]88 mg/dL74 - 99MP-[facility] Work Phone: Potassium [Moles/Vol]3.9 mmol/L3.5 - 5.3MP-[facility] Work Phone: Protein [Mass/Vol]7.6 g/dL6.4 - 8.2MP-[facility] Work Phone: Sodium [Moles/Vol]142 mmol/L136 - 145MP-[facility] Work Phone: Urea nitrogen [Mass/Vol]15 mg/dL6 - 23MP-[facility] Work Phone: Otheron [id number] 1MP-[facility] [place] Work Phone: [phone] [facility] [facility] Work Phone: [phone] [facility]-[place] [facility] Work Phone: [phone] [facility]-[place] [facility] Work Phone: [phone] [facility]-[place] [facility] Work Phone: [phone] [facility]-[place] [facility] Work Phone: Sinus rhythm with occasional premature ventricular complexes-[place] [facility] Work Phone: [phone] [facility]-[place] [facility] Work Phone: [email or web address]?RetrieveTestByDateTime?Patien jXO=[id number]&Da te=20-01-2020&Time=14%3a54%3a12%3a00&TestType=ECG&Site=11&OutputType=PDF&Ext=PDF -[facility] Work Phone: [phone] [facility]-[place] [facility] [address] [place] [address] [facility]-[place] Work Phone: [phone] [facility]-[place] [facility] Work Phone: [phone] [facility]-[place] [facility] Work Phone: [phone] [address] [place] [address] [facility] Work Phone: [phone] [facility]-[place] [facility] Work Phone: Albumin BCP dye [Mass/Vol]4.4 g/dL3.4 - 5.0-[facility] [place] Work Phone: ALT With P-5'-P [Catalytic activity/Vol]16 U/L7 - 45 -[place] [facility] Work Phone: Comment on above:Patients treated with Sulfasalazine may generate falsely decreased results for ALT.AST With P-5'-P [Catalytic activity/Vol]23 U/L9 - 39MP-[place] For [facility] Work Phone: [phone] {mL/min/1.73m2}>60MP-[facility] Work Phone: [phone] on above:CALCULATIONS OF ESTIMATED GFR ARE PERFORMED USING THE MDRD STUDY EQUATION FOR THE IDMS-TRACEABLE CREATININE METHODS. CLIN CHEM 2007;53:766-7254 {mL/min/1.73m2}Abnormal>60MP-[facility] [employer] Work Phone: [phone] [phone] (U)HAZYCLEARM- [facility] Work Phone: Color (U)YELLOWSee [facility] [employer] Work Phone: [phone] on above:Reference Range: STRAW,YELLOWGlucose Ql (U)NegativeNEGATIVEGadsden Regional Medical Center OrthopedicsPark[facility] Work Phone: Ketones Ql (U)NegativeNEGCOLLEGE HOSPITAL-[facility] [place] Work Phone: Leukocyte esterase Test strip Ql (U)NegativeNEGATIVE -[facility] OrthopedicsPark[facility] Work Phone: pH (U)7.0 [pH]5.0 - 8.[facility] [facility] [employer] Work Phone: Protein (U) [Mass/Vol]NegativeNEGSwedish Medical Center OrthopedicsP[facility] [employer] Work Phone: RBC (U) [#/Vol]NegativeNEGCOLLEGE HOSPITAL-[facility] Work Phone: Specific gravity (U) [Rel density]1.019See BelowMuscogee Work Phone: Comment on above:Reference Range: 1.005 - 1.035 UrinalysisNegativeNEGATIVEStillwater [facility] [place] Work Phone: [phone] mg/dLabove high threshold0.0 - 1.9- [facility] [place] Work Phone: Comment on above:Due to a manufacturing issue, low positive urobilinogen results may be falsely positive. Correlate with urine bilirubin and additional clinical/laboratory findings to assess the risk of hemolytic anemia or liver disease. If clinically indicated, repeat testing with an alternate method is available by contacting the laboratory within 24 hours..Some pigments and medications may cause a false positive urobilinogen. Otheron 29-79-0922Ywffecoakfh by: HARSHAL ALVARADO01/16/20 13:42MRN: [id number] Name: LUMA RIBEIRO STUDY:HIP, UNILATERAL W/PELVIS WHEN PERFORMED 2-3 VIEWS; Right; 01/16/20201:39 pm INDICATION:pain. ORDERING CLINICIAN:HARSHAL ALVARADO FINDINGS:AP lateral right hip x-ray shows end-stage rwdrfinefozfhmymub-th-gsxz arthrosis noted. 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 Electronically signed by: HARSHAL ALVARADO 01/16/20 13:42NormalStillwater [facility] [place] Work Phone: Vital Signs Date TimeVital SignValuePerforming PgloulslzHjbkeziy86-21-7642 15:00-0400 Diastolic blood gqyctegz00 mm[Hg]Amber Hawley MD Work Phone: [facility]07-18-2025 15:00-0400 Systolic blood odbuycns803 mm[Hg]Amber Hawley MD Work Phone: [facility]07-18-2025 14:11-0400 Body ovpuan322.6 cmAmber Hawley MD Work Phone: [facility]07-18-2025 14:11-0400 Body mass index (BMI) [Ratio]44.97 kg/b2KoifsuAmber Hawley MD Work Phone: [facility]07-18-2025 14:11-0400 Body vgtupl324.84 kgAmber Hawley MD Work Phone: [facility]07-18-2025 14:11-0400 Heart rate72 /minAmber Hawley MD Work Phone: [facility]06-18-2025 11:33-0400 Body .5 Feliberto Pride CLOTH [employer] Work Phone: [facility]linLjzftqwixz24-55-8715 11:33-0400Body mass index (BMI) [Ratio]48.47 kg/c2LwtyepKamila Pride CLOTH HAND Work Phone: [facility]linWlwvywwuye45-88-3796 11:33-0400Body nlbser941.2 kgKamila Pride CLOTH HAND Work Phone: [facility]linDplrpkfnvr49-24-2528 11:33-0400Diastolic blood yplwjgie833 mm[Hg]Kamila Pride CLOTH [employer] Work Phone: [facility]linTvrcemjzph68-75-8159 11:33-0400Heart rate77 /min Kamila Pride CL[employer] Work Phone: [facility]oplinAwgwkpcuhg64-19-2670 11:33-0400Respiratory rate17 /minSlola Pride CLOTH HAND Work Phone: [facility]oplinGupbspdrsy70-74-4058 11:33-8435PdU5% (BldA) [Mass fraction]96 %Kamila Pride CLOTH [employer] Work Phone: [facility] CenterXnlekrtuzh96-44-2338 11:33-0400Systolic blood vugripvo544 mm[Hg]Kamila Pride CLOTH [employer] Work Phone: [facility] CenterWsputuantu77-02-1084 15:03-0400Body euiacq530.5 Annia Alfredo DPM Work Phone: [facility]oplinTozvhmmqrq19-72-4789 15:03-0400Body mass index (BMI) [Ratio]49.02 kg/f7WscsoivnAlex Alfredo DPM Work Phone: [facility]oplinIcuuuuxyey80-36-3985 15:03-0400Body dcvysf267.56 kgLyricjeffery Alfredo DPM Work Phone: [facility]oplinMyzdcdkzch03-81-7794 15:03-0400Respiratory rate18 /minLyricjeffery Alfredo DPM Work Phone: [facility]oplinUerpagknrx50-05-1987 11:00-0400Body vuaijl835.[address] [place], [place] 9004105-21-2025 11:00-0400Body mass index (BMI) [Ratio]46.17 kg/m[address]05-21-2025 11:00-0400Body .[address]05-21-2025 11:00-0400Diastolic blood jonibkoe71 mm[Hg][address]05-21-2025 11:00-0400Systolic blood xezhpeob840 mm[Hg][address]05-21-2025 10:44-0400Diastolic blood cbmsswga18 mm[Hg][address]05-21-2025 10:44-0400Heart rate67 /minEly [address] [place], [place] [address]05-21-2025 10:44-0400Systolic blood ibghcske155 mm[Hg][address]04-21-2025 11:24-0400Body height 157.5 cmRoc Steele MD Work Phone: [facility]oplinKapuppibaz80-00-6277 11:24-0400Body mass index (BMI) [Ratio]49.02 kg/s0ZadaugRoc Steele MD Work Phone: [facility]oplinZhisdgwuhk76-60-3221 11:24-0400Body .56 kgRoc Steele MD Work Phone: [facility]oplinIapzwgkoun46-19-3495 11:24-0400Diastolic blood slzcpubc88 mm[Hg]Roc Steele MD Work Phone: [facility]linSptbdwzfby49-96-3770 11:24-0400Heart rate89 /min Roc Steele MD Work Phone: [facility]oplinQmubhfakdp61-34-6741 11:24-6810DsC6% (BldA) [Mass fraction]96 %Roc Steele MD Work Phone: [facility]oplinWhjelyimlk41-97-2811 11:24-0400Systolic blood szxcoxtm963 mm[Hg]Roc Steele MD Work Phone: [facility]oplinZpocvmiphd29-04-6087 14:45-0400Body bydsfm651.5 cmLyricjeffery Alfredo DPM Work Phone: [facility]linPkakwdvgxo31-71-3164 14:45-0400Body mass index (BMI) [Ratio]48.65 kg/b2Yuowzltz Yonatan DPM Work Phone: [facility]oplinVcfnwrwrea51-88-5747 14:45-0400Body gutrdv002.66 kgLyricjeffery Alfredo DPM Work Phone: [facility]oplinAirbxqtbgo73-34-6315 14:45-0400Respiratory rate16 /minAlex Yonatan DPM Work Phone: [facility]oplinMbiocitysh81-85-4823 13:31-0400Body dqaomr153.5 cmSlola Pride CLOTH HAND Work Phone: [facility]oplinSeqorbwbyj30-71-1394 13:31-0400Body mass index (BMI) [Ratio]48.73 kg/f9TschonKamila Espitiavely CLOTH HAND Work Phone: [facility] CenterEpuxlawjph10-21-8664 13:31-0400Body zqqqvy630.84 kgSherri Oldsmar CLOTH HAND Work Phone: [facility] CenterWzhvdxnyin41-00-2670 13:31-0400Diastolic blood mm[Hg]Kamila Pride CL[employer] Work Phone: [facility] CenterCaxbvnoesm51-65-6978 13:31-0400Heart rate88 /min Kamila Pride CL[employer] Work Phone: [facility]oplinFdelbyyjdw13-30-4733 13:31-0400Respiratory rate17 /minSlola Pride CL[employer] HAND Work Phone: 1(187)857-[address] [place], [place] [address]Ibobfvibrg48-89-3308 13:31-6788OtJ3% (BldA) [Mass fraction]99 %Kamila Pride [employer] Work Phone: 1(735)617-[address] [place], [place] [address]Loloostzln59-92-1998 13:31-0400Systolic blood tkiuqwjm035 mm[Hg]Kamila Pride CL[employer] Work Phone: 1(768)899-[address] [place], [place] [address]Qoltknjfse89-39-4016 11:25-0400Body .6 cmAmber Hawley MD Work Phone: 1(368)[address]03-17-2025 11:25-0400 Body mass index (BMI) [Ratio]46.17 kg/c9GkxjmyAmber Hawley MD Work Phone: [phone]03-17-2025 11:25-0400 Body gidbrd608.02 kgAmber Hawley MD Work Phone: 1(484)[address]03-17-2025 11:25-0400 Diastolic blood mm[Hg]Amber Hawley MD Work Phone: 1(899)[address]03-17-2025 11:25-0400 Heart rate93 /minAmber Hwaley MD Work Phone: 1(218)[address]03-17-2025 11:25-0400 Systolic blood ztqiekis666 mm[Hg]Amber Hawley MD Work Phone: 1(500)[address]03-13-2025 12:59-0400 Body zbutdj384.5 cmSlola Pride CLOTH HAND Work Phone: 1(114)239-[address] [place], [place] [address]Kzhkybfrcm30-03-7799 12:59-0400Body mass index (BMI) [Ratio]49.93 kg/y3WeciqeKamila Pride CLOTH HAND Work Phone: 1(887)118-[address] [place], [place] [address]Hlxazhvvqv33-01-9966 12:59-0400Body .83 kgKamila Pride CLOTH HAND Work Phone: [facility] CenterLywgruuvas16-38-2104 12:59-0400Diastolic blood ruwcpxrj13 mm[Hg]Kamila Pride CL[employer] Work Phone: [facility] CenterHigtkowagc52-42-1851 12:59-0400Heart rate87 /min Kamila Pride CL[employer] Work Phone: [facility] CenterBjacmwpbzt70-84-2534 12:59-7565XmF0% (BldA) [Mass fraction]97 %Kamila Pride CL[employer] Work Phone: [facility] CenterLfuqwftqtx27-93-6940 12:59-0400Systolic blood yfydmyag349 mm[Hg]Kamila Oldsmar CLOTH HAND Work Phone: [facility] CenterMasrogcoew74-37-1203 11:31-0500Body .5 cmSolivia Pride CLOTH HAND Work Phone: [facility] CenterXakqpvggbn88-45-3319 11:31-0500Body mass index (BMI) [Ratio]50.22 kg/o6Iubkntsharona Pride CLOTH HAND Work Phone: [facility] CenterGpzimmkbrd21-18-5407 11:31-0500Body mijmhi610.56 kgKamila Pride CLOTH HAND Work Phone: [facility] CenterNxkqwdcxzm81-17-1792 11:31-0500Diastolic blood ehbjbpaz76 mm[Hg]Kamila Pride CLOTH [employer] Work Phone: [facility] CenterRzolycefei82-88-4351 11:31-0500Heart rate74 /min Kamila Oldsmar CLOTH HAND Work Phone: [facility] CenterDguedhdjoa92-29-4212 11:31-0500Respiratory rate17 /minSolivia Pride CLOTH HAND Work Phone: [facility] CenterGbbhtkylwb39-66-4899 11:31-0477BfI2% (BldA) [Mass fraction]94 %Kamila Pride CL[employer] Work Phone: [facility] CenterLoyyojjcjv25-93-5819 11:31-0500Systolic blood szdjvxod697 mm[Hg]Kamila Espitiavely CLOTH HAND Work Phone: [facility]linGnqerwggkr51-62-3663 11:07-0500Body ofhaop173.5 Feliberto Pride CLOTH HAND Work Phone: [facility] CenterTmzbwtmhtg15-23-5616 11:07-0500Body mass index (BMI) [Ratio]49.2 kg/w4NubfouKamila Espitiavely CLOTH HAND Work Phone: [facility] CenterWnhbwnsiwa85-31-6640 11:07-0500Body kzfaoj938.02 kgKamila Espitiavely CLOTH HAND Work Phone: [facility]linXyhwwejuto77-77-1215 11:07-0500Diastolic blood mdxearfd27 mm[Hg]Kamila Pride CLOTH [employer] Work Phone: [facility]oplinEeusurkpwi09-96-9832 11:07-0500Heart rate76 /min Kamila Pride CL[employer] Work Phone: [facility]linHppeptltgq45-42-2907 11:07-0500Respiratory rate17 /minSlola Pride CLOTH HAND Work Phone: [facility]oplinAldvfylapd64-26-7194 11:07-3540QnM8% (BldA) [Mass fraction]99 %Kamila Pride CL[employer] Work Phone: [facility]linCmzunwjwxa27-89-8665 11:07-0500Systolic blood iqnyyiuh861 mm[Hg]Kamila Pride CL[employer] Work Phone: [facility]linQjsbyakmfx49-75-7527 14:37-0500Body fvfmev832.5 cmNicholas Brown DPM Work Phone: [facility]oplinIqwlhdmqnj42-63-6125 14:37-0500Body mass index (BMI) [Ratio]50.3 kg/o3Isteeqqj Brown DPM Work Phone: [facility]oplinTmmyqucudw28-56-4285 14:37-0500Body lkbnhy441.74 kgNicholas Brown DPM Work Phone: [facility]linGhoafwxhxw64-86-3596 14:37-0500Respiratory rate18 /minAlex Brown DPM Work Phone: [facility]oplinJmkjqwqszj98-45-6938 10:11-0500Body .5 cmSherri Oldsmar CLOTH HAND Work Phone: [facility]oplinBojplomtfa50-90-6674 10:11-0500Body mass index (BMI) [Ratio]50.33 kg/p5UyjzycKamila Espitiavely CLOTH HAND Work Phone: [facility]oplinBtersuobjx60-78-2234 10:11-0500Body otiygy779.83 kgKamila Espitiavely CLOTH HAND Work Phone: [facility]oplinJfaalrxmrd50-35-0303 10:11-0500Diastolic blood ndemrhkb53 mm[Hg]Kamila Pride CLOTH [employer] Work Phone: [facility]oplinRmuweflwxl39-57-2900 10:11-0500Heart rate77 /min Kamila Pride CLOTH [employer] Work Phone: [facility]oplinTujacfegku18-73-6832 10:11-0500Respiratory rate18 /minSlola Pride CLOTH HAND Work Phone: [facility]oplinPkfdemhhaq99-93-1706 10:11-6596MyQ5% (BldA) [Mass fraction]99 %Kamila Pride CL[employer] Work Phone: [facility]oplinKvdgaozujl70-12-2837 10:11-0500Systolic blood casbrhaj841 mm[Hg]Kamila Pride CLOTH [employer] Work Phone: [facility]oplinYdwsnxtxpz93-47-2335 11:32-0500Body mahaaf021.5 Feliberto Pride CLOTH HAND Work Phone: [facility]oplinVaaicywgis31-38-4919 11:32-0500Body mass index (BMI) [Ratio]48.54 kg/p6DkpqalKamila Espitiavely CLOTH HAND Work Phone: [facility]oplinJpqzujegfh02-04-3470 11:32-0500Body hpapwj298.39 kgKamila Espitiavely CLOTH HAND Work Phone: [facility]oplinBtighaawve64-94-7410 11:32-0500Diastolic blood mvzwsbir21 mm[Hg]Kamila Pride CL[employer] Work Phone: [facility]oplinNdonllbraq15-84-7199 11:32-0500Heart rate97 /min Kamila Pride CL[employer] Work Phone: [facility]oplinRsbbsxojeq72-48-5819 11:32-0500Respiratory rate18 /minSri [place] CLOTH [employer] Work Phone: [facility]oplinIeatcvtgef02-70-3555 11:32-9247HhU0% (BldA) [Mass fraction]98 %Kamila Oldsmar CLOTH [employer] Work Phone: [facility]oplinNgncvprjcq04-58-7934 11:32-0500Systolic blood yubnbvkr129 mm[Hg]Kamila Espitiavely CLOTH HAND Work Phone: 1(277)378-[address] [place], [place] [address]Nmapxigakx13-29-0978 10:53-0500Body jnzreu422.5 cmSri Oldsmar CLOTH HAND Work Phone: 1(995)[facility]-[address] [place], [place] [address]Tmsnafzvwd46-12-1005 10:53-0500Body mass index (BMI) [Ratio]48.87 kg/f6Zzetjd Oldsmar CLOTH HAND Work Phone: 1(193)622-[address] [place], [place] [address]Imkbbmyclm69-84-8574 10:53-0500Body bkvois669.2 kgShlashawnmekhi [place] CL[employer] Work Phone: 1(076)158-[address] [place], [place] [address]Rimlkpsfip73-29-0222 10:53-0500Diastolic blood lyzzfjiz19 mm[Hg]Kamila Espitiavely CLOTH HAND Work Phone: 1(686)202-[address] [place], [place] [address]Qxznixoqkd46-10-0666 10:53-0500Heart rate88 /min Kamila [place] CL[employer] Work Phone: 1(064)147-[address] [place], [place] [address]Fslopwnwgw21-28-1968 10:53-0500Respiratory rate18 /minSlola Espitiavely CLOTH HAND Work Phone: 1(330)224-[address] [place], [place] [address]Ibmzvimdbw64-97-5441 10:53-5470RmJ8% (BldA) [Mass fraction]95 %Kamila Oldsmar CL[employer] Work Phone: 1(500)007-[address] [place], [place] [address]Nffqhyuzst90-98-5150 10:53-0500Systolic blood brqoegsy248 mm[Hg]Kamila Espitiavely CLOTH HAND Work Phone: 1(419)805-[address] [place], [place] [address]Xufttyxlba60-33-4237 08:32-0500Body .5 cmSlola Espitiavely CLOTH HAND Work Phone: 1(167)880-[address] [place], [place] [address]Drxelawxhv96-59-2893 08:32-0500Body mass index (BMI) [Ratio]49.6 kg/f5Tghwmh [place] CL[employer] Work Phone: [facility]oplinLyzlcpubxb46-87-8307 08:32-0500Body ygjdkp734.02 kgSherri Oldsmar CLOTH HAND Work Phone: [facility]linVxndypzxwp68-80-9272 08:32-0500Diastolic blood vpjxygyx50 mm[Hg]Kamila [place] CL[employer] Work Phone: [facility]oplinZitjasblnv16-46-1133 08:32-0500Heart rate74 /min Kamila Oldsmar CLOTH [employer] Work Phone: [facility]oplinLrhaouftne36-95-8664 08:32-0500Respiratory rate17 /minSri Oldsmar CLOTH HAND Work Phone: 1(010)[facility]-4482[facility] JoplinSpcfjxaaot77-12-3488 08:32-4975EoC8% (BldA) [Mass fraction]98 %Kamila Oldsmar CLOTH [employer] Work Phone: [facility]oplinKpuwllkrii20-07-4732 08:32-0500Systolic blood wnoogqcc285 mm[Hg]Kamila Oldsmar CLOTH HAND Work Phone: [facility]oplinRsuwabpytc24-38-5679 11:19-0500Body dfywbx473.5 cmSri [place] CLOTH HAND Work Phone: [place] [address]Xeohulpqtb73-09-9709 11:19-0500Body mass index (BMI) [Ratio]50.85 kg/t0Wdohcu Oldsmar CL[employer] Work Phone: 1(775)928-[address] [place], [place] [address]Jcicnympbx60-51-8149 11:19-0500Body emvizw363.1 kgSherri [place] CLOTH HAND Work Phone: [place] [address]Mroudmhdal99-21-9918 11:19-0500Diastolic blood mm[Hg]Kamila [place] CL[employer] Work Phone: 1(841)[facility]-[address] [place], [place] [address]Lubwalfrck36-62-1281 11:19-0500Heart ueri268 /min Kamila Oldsmar CL[employer] Work Phone: 1(913)295-[address] [place], [place] [address]Aiyolfinmq94-98-4135 11:19-6585KkT8% (BldA) [Mass fraction]98 %Kamila Oldsmar CLOTH HAND Work Phone: [facility]oplinRhimuohals85-32-0973 11:19-0500Systolic blood vkuiqlcl783 mm[Hg]Kamila Pride CLOTH [employer] Work Phone: [facility]linEusmpqerro29-63-8622 14:09-0400Body bobbhn085.5 cmAlex Brown DPM Work Phone: [facility]linRwzrdwpzvz26-74-5513 14:09-0400Body mass index (BMI) [Ratio]50.85 kg/o3RhtdxzwrAlex Alfredo DPM Work Phone: [facility]oplinZoknfbywlb48-28-1407 14:09-0400Body aceqai100.1 kgAlex Alfredo DPM Work Phone: [facility]oplinLnbrzaripj38-11-9182 14:09-0400Diastolic blood fybowons84 mm[Hg]Alex Alfredo DPM Work Phone: [facility]oplinYwucasqvks49-21-5835 14:09-0400Heart rate82 /min Alex Alfredo DPM Work Phone: [facility]oplinJqrbsjmwpa85-27-6266 14:09-0400Systolic blood wnwmilxa139 mm[Hg]Alex Alfredo DPM Work Phone: [facility]oplinSbszdcycjo93-85-3269 14:42-0500Body xfiyld426.5 cmAlex Alfredo DPM Work Phone: [facility]linJzwdbwdcuh80-55-9149 14:42-0500Body mass index (BMI) [Ratio]50.48 kg/p1IfojycbcAlex Alfredo DPM Work Phone: [facility]oplinZokzjmbllo85-20-1919 14:42-0500Body wbauve893.19 kgAlex Alfredo DPM Work Phone: [facility]oplinMlzdadrrtw06-98-6330 14:42-0500Diastolic blood edwbgxzt33 mm[Hg]Alex Alfredo DPM Work Phone: [facility]oplinDkqqupthkk88-63-0242 14:42-0500Heart rate84 /min Alex Alfredo DPM Work Phone: 1(789)869-[address] [place], [place] [address]Xdkqxpjlwp32-53-4515 14:42-0500Systolic blood evdfebpt764 mm[Hg]Alex Alfredo DPM Work Phone: 1(723)912-[address] [place], [place] [address]Tvjlndehpg55-83-5620 15:33-0500Body .5 cmLyricjeffery Alfredo DPM Work Phone: 1(101)538-[address] [place], [place] [address]Ljdxcwwkgn11-89-3049 15:33-0500Body mass index (BMI) [Ratio]50.48 kg/a7Qytzdmdq Yonatan DPM Work Phone: 1(363)007-[address] [place], [place] [address]Hnproigbjr49-39-8043 15:33-0500Body qeyukk641.19 kgLyricjeffery Alfredo DPM Work Phone: 1(891)883-[address] [place], [place] [address]Ouvortzouy36-17-1254 15:33-0500Diastolic blood zchpbmxe04 mm[Hg]Alex Alfredo DPM Work Phone: 1(142)006-[address] [place], [place] [address]Sfruxtbasz39-08-2986 15:33-0500Heart rate79 /min Alex Alfredo DPM Work Phone: 1(536)745-[address] [place], [place] [address]Lursbwbhlu75-56-1641 15:33-0500Systolic blood nxprnhev922 mm[Hg]Alex Alfredo DPM Work Phone: 1(719)476-[address] [place], [place] [address]Tgloeawzkb68-14-1110 15:36-0400BMI (Body Mass Index)46.35 kg/h8Bwqotxk [facility] Work Phone: 1(625) 953-593009-17-2020 15:36-0400Body .47 kgMatthew [facility]Park[facility] Work Phone: 1(303) 944-953009-17-2020 15:36-0400BSA (Body Surface Area)2.22 m2 Tasia [facility] Work Phone: 1(213) 111-376309-17-2020 15:36-3066Eyzfqe152.56 cmMatthew [facility] Work Phone: Encounters Encounter DateEncounter TypeCare ProviderFacilityStart: 02-17-2025 End: 13-69-9341Wvwyfensd Result EncounterGeneric External Data ProviderNOMS External Department UnsolicitedStart: 02-17-2025 End: 45-58-2288Wkevdukmr Result EncounterGeneric External Data ProviderNOMS External Department UnsolicitedStart: 01-23-2025 End: 59-38-0778Jaqjtfjjt Result EncounterGeneric External Data ProviderNOMS External Department UnsolicitedStart: 01-23-2025 End: 18-39-4794Pbhgthtyv Result EncounterGeneric External Data ProviderNOMS External Department UnsolicitedStart: 2024 End: 64-16-8076Dnxjzv outpatient visit 25 minutesAmber Hawley MD Work Phone: uh [facility] HealthlandsComment on above:Encounter to discuss test results (Primary Dx); Uses roller walker; Palpitations; Mixed hyperlipidemia; Chest discomfort; CARO on CPAP; Paroxysmal supraventricular tachycardia; Never smoked cigarettes; Body mass index (BMI) 40.0-44.9, adult (Multi)Start: 2024 End: 96-64-0904goddhunfqbFBAWBQCl[facility] AmbulatoryStart: 11-04-2024 End: 25-04-9253gdwujpkwhnPauwcdzTima Sanchez MDFacility:PM Nya Start: 10-16-2024 End: 10-38-2395Gtrgse Jerome Pride CLOTH HAND Work Phone: [facility] CI FMStart: 10-16-2024 End: 64-04-4287Jveqjw Jerome Pride CL[employer] Work Phone: [facility] CI FMStart: 10-16-2024 End: 37-27-6938Ddmzgk outpatient visit 15 minutesKamila Pride CLOTH HAND Work Phone: [facility] CI FMComment on above:Acute low back pain without sciatica, unspecified back pain laterality (Primary Dx)Start: 10-16-2024 End: 64-11-5001LledjjErtsjk B Berry MD Work Phone: [facility] CI FMComment on above:Lumbosacral spondylosis without myelopathyStart: 10-14-2024 End: 00-43-2689vhhhwckbztNxsdfup Vytautas Giedraitis MDFacility:PM Nya Start: 10-10-2024 End: 87-95-2104Tuzhyrc encounter procedureAlex Alfredo DPM Work Phone: noMS CI PODIATRYComment on above:Pain due to onychomycosis of toenails of both feet (Primary Dx)Start: 10-10-2024 End: 62-37-5444piuqiybxluVRPKZODN A BROWNNot AvailableStart: 10-01-2024 End: 16-04-4956Sotbugtbf Result EncounterGeneric External Data ProviderNOMS External Department UnsolicitedStart: 10-01-2024 End: 11-86-5195Dmrochlxk Result EncounterGeneric External Data ProviderNOMS External Department UnsolicitedStart: 09-19-2024 End: 51-21-5342notyvxuqrsBQMSTUMemorial Satilla Health AmbulatoryStart: 09-18-2024 End: 75-16-1226Vjkvxdoefb hospital visit by physicianJessica Dobbins Admin Room 1[facility] CenterComment on above:Lightheadedness; Chest discomfort; Palpitations; Mixed hyperlipidemiaParoxysmal supraventricular tachycardia; Abnormal EKG; PalpitationsStart: 09-18-2024 End: 85-62-8203rbjwealnlpHTUWTDOhioHealth Southeastern Medical Center Start: 09-16-2024 End: 09-58-8131nlglhzkrmcPqqffok Vytautas Giedraitis MDFacility:PM Nya Start: 09-10-2024 End: 17-76-3990KnwsigXglisd M Shively NP Work Phone: N[facility] CI FMComment on above:Primary insomniaStart: 08-19-2024 End: 07-15-3797Ygumnv outpatient visit 25 minutesRoc Steele MD Work Phone: [facility] CI FMComment on above:Age-related osteoporosis without current pathological fracture (CMS/HCC) (Primary Dx); Osteopenia of both hips; Chronic coughStart: 08-19-2024 End: 96-46-0066ytsyzcwdgzBEGAOJ B BERRYNot AvailableStart: 08-01-2024 End: 25-34-4666cpajassofuZCCUQNQS A BROWNNot AvailableStart: 08-01-2024 End: 03-04-5917Ammctvf encounter procedureAlex Alfredo DPM Work Phone: noms CI PODIATRYComment on above:Pain due to onychomycosis of toenails of both feet (Primary Dx)Start: 08-01-2024 End: 21-80-3558Bkdnlg Jerome Pride CLOTH HAND Work Phone: [facility] CI FMStart: 08-01-2024 End: 73-84-9125Rsxmcx Jerome Pride CLOTH HAND Work Phone: [facility] FMStart: 08-01-2024 End: 69-21-1943Pgdion outpatient visit 25 minutesShsharona Pride CLOTH HAND Work Phone: [facility] FMComment on above:SOB (shortness of breath) (Primary Dx); Chronic cough; Lumbosacral spondylosis without myelopathy; Seasonal allergic rhinitis, unspecified trigger; Age-related osteoporosis without current pathological fracture ([facility])Start: 08-01-2024 End: 81-84-5943rnsukzpbdhEWKQAV M SHIVELYNot AvailableStart: 07-26-2024 End: 74-48-2416mhpxjadyosCBUHJB M SHIVELYNot AvailableStart: 07-18-2024 End: 75-20-3762Czqgiedke Result EncounterRoc Steele MD Work Phone: [facility] External Department UnsolicitedStart: 07-18-2024 End: 57-73-7545Qhpybcnck Result EncounterRoc Steele MD Work Phone: [facility] External Department UnsolicitedStart: 07-15-2024 End: 88-79-6258Jlzejt consultation new/estab patient 61 Enedina Hawley MD Work Phone: uh Replaced By [facility] AnsonComment on above:Encounter to establish care with new doctor; Paroxysmal supraventricular tachycardia (CMS-HCC); Abnormal EKG; Lightheadedness; Chest discomfort; Palpitations; Primary hypertension; Stenosis of carotid artery, unspecified laterality; Mixed hyperlipidemia; Stage 3a chronic kidney disease (Multi); Gastroesophageal reflux disease without esophagitis; At high risk for falls; Uses roller walker; Severe obesity (BMI >= 40) (Multi); Never smoked cigarettesStart: 07-15-2024 End: 57-55-1320wjxrmphkkcSTGXRMMemorial Satilla Health AmbulatoryStart: 07-11-2024 End: 57-25-0254Sdfck of hemosiderin, quantKamila Pride NP Work Phone: [facility] HealthcareStart: 07-11-2024 End: 04-31-8914Ltqnigv encounter procedureSlola Pride NP Work Phone: noMS [...] unspecified heart failure type (CMS/HCC)Start: 07-11-2024 End: 27-42-2545iuknrkdmbnJFSKURJusto Bhatt AvailableStart: 07-05-2024 End: 00-11-6968ifkeoptitvVDTANGJusto Bhatt AvailableStart: 07-03-2024 End: 09-49-2739Ykinin Jerome Pride CL[facility] [employer] Work Phone: [facility] FMStart: 07-03-2024 End: 24-38-4553Zvwxyo Jerome Pride CL[facility] [employer] Work Phone: [facility] FMStart: 07-03-2024 End: 16-40-1498Qtaekz outpatient visit 25 minutesShsharona Pride CLOTH HAND Work Phone: [facility] FMComment on above:Paroxysmal supraventricular tachycardia (CMS/HCC) (Primary Dx); Primary insomnia; Acute congestive heart failure, unspecified heart failure type (CMS/HCC); Stage 3b chronic kidney disease (HCC) (CMS/HCC); Weakness; Other fatigue; Pain of right hip; Fall, initial encounterStart: 07-03-2024 End: 61-25-0054lovyixdqxvKMHLJD M SHIVELYNot AvailableStart: 06-11-2024 End: 89-93-0503Lasnii Jerome Pride CLOTH HAND Work Phone: [facility] CI FMStart: 06-11-2024 End: 02-05-9116Seyxuc Jerome Pride CLOTH HAND Work Phone: [facility] CI FMStart: 06-11-2024 End: 38-59-8995Dccodg outpatient visit 25 minutesKamila Pride CLOTH HAND Work Phone: NOMS CI FMComment on above:Palpitations (Primary Dx); Acute cough; Acute congestive heart failure, unspecified heart failure type (CMS/HCC); Acute non-recurrent pansinusitisStart: 06-11-2024 End: 89-87-1006dschgdxppnMBQOVSJusto Bhatt AvailableStart: 05-23-2024 End: 63-90-1653Jlgegmq encounter Susan PAGANM Work Phone: N[facility]S CI PODIATRYComment on above:Pain due to onychomycosis of toenails of both feet (Primary Dx)Start: 05-23-2024 End: 47-64-4273whkofrdwtiNMWTACRR A BROWNNot AvailableStart: 05-22-2024 End: 89-97-6643Zsqxpb flowsWendy Pride CLOTH HAND Work Phone: [facility] CI FMStart: 05-22-2024 End: 34-60-7312Nacvgx flowsWendy Pride CLOTH HAND Work Phone: [facility] CI FMStart: 05-22-2024 End: 09-65-3803Tgzpis outpatient visit 25 minutesKamila Pride CLOTH HAND Work Phone: [facility]S CI FMComment on above:Stage 3b chronic kidney disease (HCC) (CMS/HCC) (Primary Dx); Benign essential hypertension (CMS/HCC); Hypomagnesemia; Pneumonia of both lungs due to infectious organism, unspecified part of lung Start: 05-22-2024 End: 49-16-8673mqtpukhttqHRVHNFJusto Bhatt AvailableStart: 05-16-2024 End: 86-39-7155Umotbvpck Result EncounterSlola Pride CLOTH HAND Work Phone: NOMS External Department UnsolicitedStart: 05-16-2024 End: 56-09-3081Objefnpta Result EncounterSlola Pride CLOTH HAND Work Phone: NOMS External Department UnsolicitedStart: 05-15-2024 End: 49-38-1498Mqknxu outpatient visit 25 minutesKamila Prdie CLOTH HAND Work Phone: N[facility]S CI FMComment on above:Edema, unspecified type (Primary Dx); Pulmonary fibrosis, unspecified (CMS/HCC); Acute congestive heart failure, unspecified heart failure type (CMS/HCC); Generalized weakness; Pneumonia of both lungs due to infectious organism, unspecified part of lung Start: 05-15-2024 End: 57-64-1336cnnnajaphgAVSGLJJusto Bhatt AvailableStart: 05-12-2024 End: 64-45-3359Sxkmbdtmm Result EncounterGeneric External Data ProviderNOMS External Department UnsolicitedStart: 05-12-2024 End: 59-91-0533Aqzuhshfl Result EncounterGeneric External Data ProviderNOMS External Department UnsolicitedStart: 05-07-2024 End: 21-26-0298Odvvbr outpatient visit 25 minutesKamila Pride CLOTH HAND Work Phone: NOMS CI FMComment on above:Bronchitis [...] index (BMI) 45.0-49.9, adult (CMS/HCC)Start: 05-07-2024 End: 00-02-8016ikzlevmibeHEVXDV M SHIVELYNot AvailableStart: 04-29-2024 End: 17-88-5787szdyfajcliLllfJeannie SappFacility:[facility] Hospitaltart: 04-15-2024 End: 66-10-8098YnsmcfBgunrx M Shively CLOTH HAND Work Phone: [facility] CI FMComment on above:Primary insomniaStart: 04-04-2024 End: 95-30-5695Rdqbrn OnlyKamila Pride CLOTH HAND Work Phone: N[facility]S CI FMComment on above:Acute pulmonary edema (CMS/HCC) (Primary Dx); HypokalemiaStart: 04-03-2024 End: 65-69-0269Sjpupz Jerome Pride CLOTH HAND Work Phone: [facility] CI FMStart: 04-03-2024 End: 50-84-4628Dartxr Jerome Pride CLOTH HAND Work Phone: [phone] CI FMStart: 04-03-2024 End: 50-83-7823mstuibgdosMZPWPF M SHIVELYNot AvailableStart: 04-03-2024 End: 57-29-7213Ztfdso outpatient visit 25 minutesKamila Pride CLOTH HAND Work Phone: NOMS CI FMComment on above:Acute cough (Primary Dx); Rib pain; Fall, initial encounter; Shortness of breath; Lumbosacral spondylosis without myelopathy; Pain of right hand; Right wrist pain; Acute non-recurrent sinusitis of other sinusStart: 04-03-2024 End: 70-87-8298onstweupdiRDSZYHJusto Bhatt AvailableStart: 03-07-2024 End: 54-10-2041Cjhmuw flowsheetChristopher Ritchie DO Work Phone: [facility] [address]TEStart: 03-07-2024 End: 31-96-1079Wcwako flowsheetChristopher Ritchie DO Work Phone: noMS [address] [address] R[address]TEStart: 03-07-2024 End: 35-84-8159Hcdrush encounter procedureChristopher Ritchie DO Work Phone: noMS [facility] ROUTEComment on above:Carpal tunnel syndrome on left (Primary Dx)Start: 03-07-2024 End: 13-24-9469gsuvpabtpuEPZOZFSLETS RITCHIENot AvailableStart: 03-05-2024 End: 77-78-1291Qjlkom Jerome Pride CLOTH HAND Work Phone: [facility] CI FMStart: 03-05-2024 End: 20-45-6333Owfywb Jerome Pride CLOTH HAND Work Phone: [facility] CI FMStart: 03-05-2024 End: 96-47-3145Aulupw outpatient visit 25 minutesKamila Pride CLOTH HAND Work Phone: NOMS CI FMComment on above:Cellulitis of finger of left hand (Primary Dx); Flu vaccine need; Numbness of hand; Encounter for screening mammogram for malignant neoplasm of breast; Lymphadenopathy; Axillary pain, left; Ankylosing spondylitis of thoracic region (CMS/HCC)Start: 03-05-2024 End: 46-79-4022nbseqrovduFGZKEMJusto Bhatt AvailableStart: 02-29-2024 End: 87-69-2116SfuqhtDxxbdk B Berry MD Work Phone: [phone] CI FMComment on above:Lumbosacral spondylosis without myelopathyStart: 02-22-2024 End: 01-88-3974Pbpgjgd encounter procedureAlex Alfredo DPM Work Phone: noms CI PODIATRYComment on above:Pain due to onychomycosis of toenails of both feet (Primary Dx)Start: 02-22-2024 End: 33-78-1594Djghhz Nicholas Alfredo DPM Work Phone: noms CI PODIATRYStart: 02-22-2024 End: 97-11-0947Hxqcvy Nicholas Alfredo DPM Work Phone: noms CI PODIATRYStart: 02-22-2024 End: 22-10-9457zusawtclhpRJEQEWJV A BROWNNot AvailableStart: 01-29-2024 End: 90-53-1531ZbpfmbHryeij B Berry MD Work Phone: noms CI FMComment on above:Benign essential hypertension (CMS/HCC)Start: 12-14-2023 End: 75-37-2455uqyactnmnfLDKLPIEF A BROWNNot AvailableStart: 11-30-2023 End: 07-63-1941vysuerrictYCOLRNJusto Bhatt AvailableStart: 06-22-2023 End: 98-37-4585Wbuolxhxv Result EncounterGeneric External Data ProviderNOMS External Department UnsolicitedStart: 06-22-2023 End: 69-31-9036Gsivpcsok Result EncounterGeneric External Data ProviderNOMS External Department UnsolicitedStart: 06-15-2023 End: 34-44-5269Tvsdaa outpatient visit 15 minutesAlex Alfredo DPM Work Phone: noms CI PODIATRYComment on above:Subungual exostosis of great toe (Primary Dx); Onychocryptosis; Toe pain, right; Toe pain, leftStart: 63-24-4474Nimer Maren Alfredo DPM Work Phone: noms CI PODIATRYStart: 06-01-2023 End: 55-07-5359Ucxpkc outpatient visit 15 minutesAlex Alfredo DPM Work Phone: N[facility]S CI PODIATRYComment on above:Subungual exostosis of great toe (Primary Dx); Onychocryptosis; Toe pain, rightStart: 78-72-2365Dhbtrdw encounter procedureORTCFOWALK ORTHO 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 Roc Steele II Facility:[id number]: 09-05-2022 End: 56-40-5914kjqqpscktcXT SARABJIT CORNEJO .Facility:K0Ykfzc: 09-03-2022 End: 75-41-3227zopmbxgjipCUGAFO RODRIGUEZ .Facility:A0Pwjpz: 06-06-2022 End: 47-67-0409hqmrqorjfdJJ ROC STEELEFacility:S1Rlbzj: 44-86-4506Ersxjku encounter procedureTaniya Al MD Work Phone: [phone]-SsiqmqAtoka County Medical Center – [place] Work Phone: Start: 88-68-3756Qynxq UpdateTasia Bird MD Work Phone: [phone]-TdnydrAtoka County Medical Center – [place] Work Phone: Start: 34-68-0545Mqiypqg encounter procedureTasia Bird MD Work Phone: [phone]-ZkakeeAtoka County Medical Center – [place] Work Phone: Start: 41-02-4708Eimyoeh encounter procedureMalamont Stein-[facility] Work Phone: Start: 87-55-0802Svzllyz encounter procedureMalamont AlarconWVU Medicine [facility] Work Phone: Procedures DateProcedureProcedure DetailPerforming ClinicianStart: 87-97-1595PT ANKLE LT MIN 3VGeneric External Data ProviderStart: 02-31-3673KQ ANKLE LT MIN 3VGeneric External Data ProviderStart: 73-33-0892VP LUMBAR SPINE WO CONGeneric External Data ProviderStart: 13-48-0308Mzoj tthrc r-t 2d w/wom-mode compl spec&colr d Amber Hawley MD Work Phone: Start: 35-46-2024Yhlpq 1996 panel - Serum or PlasmaEly 2Start: 19-78-0091MT TOMOSYNTHESIS SCREENING Hannah Steele MD Work Phone: Start: 40-28-7674Zho routine ecg w/least 12 lds w/i&r Amber Hawley MD Work Phone: Start: 36-91-3283Vmehcxdtki glycosylated u5gYbwlvl Ren Pride CLOTH HAND Work Phone: Start: 53-92-2187RKB BASIC METABOLIC PANELSlola Pride CLOTH HAND Work Phone: Start: 73-20-8851UZQMQ CULTURE 1Generic External Data ProviderStart: 03-07-2024 End: 01-15-0753Kfwdbr emg ea extremty w/paraspinl area completeChristopher Ritchie DO Work Phone: Start: 66-87-4523OW CHEST 2VGeneric External Data ProviderStart: 39-47-8900HQO 12-LEADGeneric External Data ProviderImplantation of joint prosthesisMatthew Pelon Plan of Treatment DateCare ActivityDetailAuthorStart: 99-66-4697Jzbqn panelLipid PanelRegency Hospital [facility] East: 94-25-1651Xuubrzykx for osteoporosisBone Density ScanRegency Hospital [facility]: 69-32-4165Krtbiahywvestfkj EchocardiogramRegency Hospital [facility] East: 05-16-2025 End: 69-25-0341Hfhjikk encounter hpvziowjy19/16/2026 2:00 PM EST Office Visit [facility] [address] [facility] [address] [place] [address] Amber Hawley MD [address] [facility] [address] [place] [address] [facility] CenterStart: 74-25-8044ICHGK-19 Vaccine ( season)COVID-19 Vaccine ( season)[facility] HealthcareStart: 12-30-2024 Influenza vaccinationInfluenza Vaccine (#1)[facility] Start: 12-19-2024 End: 07-25-4516Qkqpvke encounter ictgyojaj28/21/2025 3:00 PM EDT Procedure Visit [facility] [address] [facility] [address] [place] [address] Alex Alfredo DPM [address] [facility] 5 [place] [address] N[facility] CI PODIATRYStart: 11-20-2024 End: 76-60-9461Zgilibxjffmt / ancillary services ixnpqywseo22/23/2025 2:00 PM EDT Ancillary Procedure [facility] [address] [place] [phone] [place] FirelandsStart: 2024 End: 62-62-7369Yajgfqt encounter qdewwcmir13/18/2025 2:15 PM EDT Office Visit [address] [address] Amber Hawley MD [address] [facility] [address] [place] [address] [facility] CenterStart: 2024 End: 38-67-0133Gjgneo monitor 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 Palpitations Expected: 2024 (Approximate), Expires: 2026[facility] Service Area Work Phone: Comment on above:Expected: 2024 (Approximate), Expires: 2026Start: 11-04-2024 End: 08-05-9741Rracwbh encounter ldpazadcq95/07/2025 2:30 PM EDT Office Visit [address] [place] [address] Amber Hawley MD [address] [facility] [address] [place] [address] [facility] CenterStart: 10-30-2024 End: 81-68-5378Ybgrtkf encounter naifpdbyj86/02/2025 11:30 AM EDT Office Visit [facility] FM [address] [facility] 110 [place] [address] Kamila Pride NP [address] [facility] 110 [place] [address] N[facility] CI FMStart: 10-16-2024 End: 36-75-0631Inhrcnm encounter procedureNOMS CI FMComment on above:Arrived Start: 10-10-2024 End: 22-02-8367Tpzizhu encounter orrnxzbxt30/12/2025 3:00 PM EDT Procedure Visit [facility] [address] [facility] [address] [place] [address] Alex Alfredo, DPRen [address] [facility] 5 [place] [address] N[facility]S CI PODIATRYStart: 09-19-2024 End: 62-76-9099Rlhwcsmuvciy / ancillary services ozmtptfjbd91/22/2025 1:00 PM EDT Ancillary Procedure [address] [place] [address] [place] FirelandsStart: 09-19-2024 End: 23-40-0350Qemcvpu encounter procedure [facility]: 09-19-2024 Subsequent hospital visit by otsojxfvo25/22/2025 11:30 AM EDT Hospital Encounter [address] [place] [phone] [facility] 09-18-2024 End: 39-66-7296Yvhgdxu encounter procedure [facility]: 08-01-2024 End: 52-86-4833Dzffyzp encounter procedureNOMS CI PODIATRYComment on above: ArrivedStart: 07-23-2024 End: 45-22-8232Kwiobdgginyc / ancillary services cnufieskrg14/25/2025 11:30 AM EDT Ancillary Procedure [facility] DXA [address] [place] [address] AKGP FNR DXAStart: 07-15-2024 End: 40-27-9442Cquelb monitor 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 Paroxysmal supraventricular tachycardia (CMS-HCC) Abnormal EKG Lightheadedness Chest discomfort Palpitations Expected: 07/15/2024 (Approximate) , Expires: 07/15/2025[facility] Work Phone: Comment on above:Expected: 07/15/2024 (Approximate), Expires: 07/15/2025Start: 07-15-2024 End: 20-92-9376OJ Heart Perfusion W stress and W radionuclide IVNuclear Stress Test Cardiac Nuclear Medicine Routine Lightheadedness Chest discomfort Palpitations Mixed hyperlipidemia Expected: 07/15/2024 (Approximate), Expires: 07/15/2026[facility] Work Phone: Comment on above:Expected: 07/15/2024 (Approximate), Expires: 07/15/2026Start: 07-15-2024 End: 21-28-3805XB Heart TransthoracicTransthoracic Echo Complete Echocardiography Routine Paroxysmal supraventricular tachycardia (CMS-HCC) Abnormal EKG Palpitations Expected: 07/15/2024 (Approximate), Expires: 07/15/2026[facility] Service Area Work Phone: Comment on above:Expected: 07/15/2024 (Approximate), Expires: 07/15/2026Start: 07-11-2024 End: 97-45-4185CTW Skeletal system Views for bone densityDEXA bone density Imaging Routine Osteopenia of both hips Decreased estrogen level Expected: 07/11/2024, Expires: 07/11/2025[facility] Work Phone: Comment on above:Expected: 07/11/2024, Expires: 07/11/2025Start: 07-11-2024 End: 12-36-2102Fjgmf 1996 panel - Serum or PlasmaLipid panel Lab Routine Hyperlipidemia, unspecified hyperlipidemia type (CMS/HCC) Medicare annual we llness visit, subsequent Expected: 07/11/2024 (Approximate), Expires: 07/11/2025 NOMS HealthcareComment on above:Expected: 07/11/2024 (Approximate), Expires: 07/11/2025Start: 07-11-2024 End: 81-72-1816Fxmssrxwyfpn/Creatinine panel in random UrineMicroalbumin / creatinine, urine ratio Lab Routine IGT (impaired glucose tolerance) Expected: 07/11/2024 (Approximate), Expires: 07/11/2025NOMS HealthcareComment on above: Expected: 07/11/2024 (Approximate), Expires: 07/11/2025Start: 07-11-2024 End: 33-06-6543Rqwtkwm encounter uwqxmuaem11/13/2025 1:00 PM EDT Office Visit [facility] CI [address] [facility] [address] [place] [address] Kamila Pride CLOTH HAND [address] [facility] 110 [place] [address] NOMS CI FMStart: 03-08-2025Medicare Annual Wellness VisitMedicare Annual Wellness Visit (AWV)[facility] CenterStart: 03-07-2025Medicare Annual Wellness (AWV)Medicare Annual Wellness (AWV)[facility]OMS HealthcareStart: 07-03-2024 End: 13-91-7558Etnunjmswclfb metabolic 2000 panel - Serum or PlasmaComprehensive metabolic panel Lab Routine Stage 3b chronic kidney disease (HCC) (CMS/HCC) Expected:07/03/2024 (Approximate), Expires: 07/03/2025[facility] Work Phone: Comment on above:Expected: 07/03/2024 (Approximate), Expires: 07/03/2025Start: 07-03-2024 End: 31-15-3946Vzcvsbmwh [Mass/volume] in Serum or PlasmaMagnesium Lab Routine Stage 3b chronic kidney disease (HCC) ([facility]/HCC) Weakness Other fatigue Expected: 07/03/2024 (Approximate), Expires: 07/03/2025NOMS HealthcareComment on above: Expected: 07/03/2024 (Approximate), Expires: 07/03/2025Start: 07-03-2024 End: 66-42-7534ON Hip - right 3 ViewsXR hip right 2 or 3 views Imaging Routine Pain of right hip Fall, initial encounter Expected: 07/03/2024, Expires: 07/03/2025NOMS HealthcareComment on above:Expected: 07/03/2024, Expires: 07/03/2025Start: 07-03-2024 End: 97-47-2865Cheklcm encounter ndrprwelj29/05/2025 11:30 AM EST Office Visit [facility] [address] [place] [address] Kamila Pride NP [address] [place] [address] ArrivedNOMS CI FMComment on above:ArrivedStart: 06-11-2024 End: 74-08-2546Mwfcqhlnzjw peptide B [Mass/volume] in BloodB-type natriuretic peptide Lab Routine Acute congestive heart failure, unspecified heart failure type ([facility]) Expected: 06/11/2024 (Approximate), Expires: 06/11/2025[facility] Work Phone: Comment on above:Expected: 06/11/2024 (Approximate), Expires: 06/11/2025Start: 06-11-2024 End: 21-76-1197Hvgtrtf encounter yrqchjjuo77/11/2025 11:00 AM EST Office Visit [facility] [address] [place] [address] Kamila Pride CLOTH HAND [address] [place] [address] ArrivedNOMS CI FMComment on above:ArrivedStart: 05-23-2024 End: 46-76-3344Jarestm encounter apgrjnkla31/23/2025 2:40 PM EST Procedure Visit [facility] [address] [facility] [address] [place] [address] Alex Alfredo, DPM [address] [facility] 5 [place] [address] NOMS CI PODIATRYStart: 05-22-2024 End: 05-74-7527JGW panel - Blood by Automated countCBC Lab Routine Stage 3b chronic kidney disease (HCC) ([facility]/HCC) Expected: 05/22/2024 (Approximate), Expires: 05/22/2025NOMS HealthcareComment on above:Expected: 05/22/2024 (Approximate), Expires: 05/22/2025Start: 05-22-2024 End: 01-72-0949Fkpuggeyzvwcb metabolic 2000 panel - Serum or PlasmaComprehensive metabolic panel Lab Routine Stage 3b chronic kidney disease (HCC) ([facility]/HCC) Expected:05/22/2024 (Approximate), Expires: 05/22/2025[facility] Work Phone: Comment on above:Expected: 05/22/2024 (Approximate), Expires: 05/22/2025Start: 05-22-2024 End: 85-86-6788Cscmuawib [Mass/volume] in Serum or PlasmaMagnesium Lab Routine Hypomagnesemia Expected: 05/22/2024 (Approximate), Expires: 05/22/2025NOMS HealthcareComment on above:Expected: 05/22/2024 (Approximate), Expires: 05/22/2025Start: 05-22-2024 End: 33-99-1683Yypaxfp encounter msdviuayl34/22/2025 10:00 AM EST Office Visit [facility] [address] [facility] [address] [place] [address] Kamila Pride, CLOTH HAND [address] [facility] [address] [place] [address] ArrivedNOMS CI FMComment on above:ArrivedStart: 05-16-2024 End: 62-99-0855Svduzjz encounter sdfuvmtiz88/16/2025 1:00 PM EST Office Visit [facility] [address] [place] [address] Kamila Pride NP [address] [place] [address] NOMS CI FMStart: 05-15-2024 End: 17-92-3631Gmazn metabolic 1998 panel - Serum or PlasmaBasic metabolic panel Lab Routine Acute congestive heart failure, unspecified heart failure type (CM S/HCC) Expected: 05/15/2024 (Approximate), Expires: 05/15/2025[facility] Work Phone: Comment on above:Expected: 05/15/2024 (Approximate), Expires: 05/15/2025Start: 05-15-2024 End: 89-58-6233Elzkbbn encounter tuojpotrz27/15/2025 11:30 AM EST Office Visit [facility] [address] [place] [address] Kamila Pride CLOTH HAND [address] [place] [address] NOMS CI FMStart: 05-14-2024 End: 57-55-8258Tcvexak encounter jwteroqqt88/14/2025 11:00 AM EST Office Visit [facility] [address] [place] [address] Kamila Pride NP [address] [place] [address] NOMS CI FMStart: 05-02-2024 End: 62-50-7545Zolowrj encounter tudexivpa63/02/2025 2:50 PM EST Procedure Visit [facility] [address] [place] [address] Alex Alfredo DPM [address] [facility] 5 [place] [address] NOMS CI PODIATRYStart: 04-03-2024 End: 02-84-0641XN Chest 2 ViewsNOMS Healthcare Work Phone: Comment on above:Expected: 04/03/2024, Expires: 04/03/2025Start: 04-03-2024 End: 55-61-5342IQ Hand - right 3 ViewsNOMS HealthcareComment on above:Expected: 04/03/2024, Expires: 04/03/2025Start: 04-03-2024 End: 25-11-9675Borgast encounter bckdcjors04/04/2024 9:00 AM EST Office Visit [facility] [address] [place] [address] Kamila Pride CLOTH HAND [address] [place] [address] ArrivedNOMS CI FMComment on above:ArrivedStart: 03-07-2024 End: 11-97-9435Vjcxwbr encounter eptjlzjgu43/07/2024 11:00 AM EST Procedure Visit [facility] [address] [place], [id number] Waqas Dugan, [address] [place], [place] [id number] Numbness of handNOMS [address] Comment on above:Numbness of handStart: 03-05-2024 End: 47-21-1300OU Breast - bilateral ScreeningBilateral screening mammogram Imaging Routine Encounter for screening mammogram for malignant neoplasm of breast Expected: 03/05/2024, Expires: 05/05/2025[facility] Work Phone: Comment on above:Expected: 03/05/2024, Expires: 05/05/2025Start: 03-05-2024 End: 94-47-1581YN AxillaUS Axilla Imaging Routine Lymphadenopathy Axillary pain, left Expected: 03/05/2024, Expires: 03/05/2025NOMS HealthcareComment on above: Expected: 03/05/2024, Expires: 03/05/2025Start: 03-05-2024 End: 16-40-2122Ynschtz encounter procedureNOMS CI FMComment on above:Arrived Start: 02-29-2024 End: 64-94-7501Nxgtvsn encounter lhjozbtpd39/31/2024 2:00 PM EDT Office Visit [facility] [address] [facility] [address] [place] [address] Kamila Pride, CLOTH HAND [address] [facility] [address] [place] [address] NOMS CI FMStart: 02-22-2024 End: 29-50-4105Csohtsq encounter procedureNOMS CI PODIATRYComment on above:Pain due to onychomycosis of toenails of both feet (Primary Dx)Start: 01-31-2024 Influenza vaccinationInfluenza Vaccine (#1)NOMS HealthcareComment on above: Postponed from 12/31/2023 (Other Medical Reasons)Start: 27-66-1803HDFOG-19 Vaccine ( season)COVID-19 Vaccine ( season)[facility] CenterStart: 42-71-7387Mddoblucr vaccinationInfluenza Vaccine (#1)[facility] HealthcareStart: 07-27-2023 End: 86-12-5011Tgflrti encounter wjytcbswf56/28/2024 3:30 PM EDT Procedure Visit [facility] [address] [facility] [address] [place] [address] Alex Alfredo DPM [address] [facility] [address] [place] [address] N[facility]S CI PODIATRYStart: 03-01-2024Medicare Annual Wellness (AWV)Medicare Annual Wellness (AWV)[facility] HealthcareStart: 06-29-2023 End: 18-80-4754Qvbdehc encounter smqylginw47/29/2024 2:30 PM EST Office Visit [facility] [address] [facility] [address] [place] [address] Alex Alfredo, DPM [address] [facility] 5 [place] [address] NOMS CI PODIATRYStart: 06-15-2023 End: 43-95-9993Zoyjnnm encounter ohvpqqulx32/15/2024 2:30 PM EST Office Visit [facility] [address] [facility] [address] [place] [address] Alex Alfredo, DPM [address] [facility] [address] [place] [address] NOMS CI PODIATRYStart: 15-16-5311Syyrpoffv for osteoporosisBone Density [facility]: 10-17-2022 NPV, Provider: Roc Alvarado, Status: Pen, Time: 1:30 PMNPV, Provider: Roc Alvarado, Status: Pen, Time: 1:30 PM-[facility] Work Phone: Start: 79-93-1603DLQ High Risk: (Elderly (60+) or Population) (1 - 1-dose 75+ series)RSV High Risk: (Elderly (60+) or Population) (1 - 1-dose 75+ series)[facility] Start: 15-37-1592Gnzxpfikoz measurementCreatinine [facility]: 87-46-9676Gtiimiet mellitus screeningDiabetes Screening [facility]: 62-04-2840Impijvsjo measurementPotassium [facility] CenterUnUniversity Hospitals St. [facility]: 28-04-8817GYN, Provider: Tsaia Bird, Status: Pen, Time: 2:15 PMFUV, Provider: Tasia Bird, Status: Pen, Time: 2:15 PM-[facility] Work Phone: Start: 82-46-5949RCF, Provider: Tasia Bird, Status: Pen, Time: 12:45 PMFUV, Provider: Tasia Bird, Status: Pen, Time: 12:45 PM- [place] [facility] [facility] Work Phone: Start: 52-52-6607YOzS/Tdap/Td Vaccines (1 - Tdap) DTaP/Tdap/Td Vaccines (1 - Tdap)[facility]: 56-89-1253Bixnk screening for proteinCKD: Urine Protein ScreeningUnUniversity Hospitals St. [facility]: 22-52-9801Cdnkdxom mellitus screeningDiabetes ScreeningUnUniversity Hospitals St. John Medical Center: 35-50-7335Xzzftmpvp C screening Hepatitis C ScreeningUnUniversity Hospitals St. John Medical Center: 1952 DTaP/Tdap/Td Vaccines (1 - Tdap)DTaP/Tdap/Td Vaccines (1 - Tdap)[facility] Start: 19-68-9245JqzhyllnwjivquclHnugdreivhdxzdXrqrjbjwsy [facility] Start: 02-37-3112Hidfs panelLipid PanelUnUK HealthcareBLOOD CULTURE 1BLOOD CULTURE 1 Lab Routine 05/12/2024 8:10 PM [facility] End: 25-51-5014BM Heart Perfusion W stress and W radionuclide [facility] Service Area Work Phone: Comment on above:Once for 1 Occurrences starting 09/18/2024 until 09/18/2024 Immunizations Immunization DateImmunizationNotesCare ItrefmxdLpdrorvs40-05-3427Tpxpvlqkr, High-dose Seasonal, Quadrivalent, Preservative FreeKamila Pride CLOTH HAND Work Phone: [facility] CenterVfwhpbyaxe65-13-1651hhjebrqrd virus vaccine, unspecified formulationAmber Hawely MD Work Phone: [facility] Work Phone: [phone], High-dose Seasonal, Quadrivalent, Preservative FreeAlex PAGANM Work Phone: [facility] CenterBxixctubpu56-44-4149duocowmbs virus vaccine, unspecified formulationRoc Steele MD Work Phone: [facility] CenterPvaclklgcv28-34-3774Xfouaod Bivalent Booster VaccinationNicbobby Alfredo DPM Work Phone: [facility]oplinOkpaqfstin17-43-9949Tjahrvmmt, High-dose Seasonal, Quadrivalent, Preservative FreeUlisesholjeffery Alfredo DPM Work Phone: [facility]oplinUfebhlaoiu18-26-2378Wkwoezlwd, Seasonal, Quadrivalent, AdjuvantedAlex Alfredo DPM Work Phone: [phone] [place], [place] [address]Hhsvgymthq68-46-3500fcmpyctxy, injectable, quadrivalent, preservative freeNicholas Yonatan DPM Work Phone: [phone] [place], [place] [address]Iflclehxdr90-70-2231ovbmay vaccine recombinant Alex Alfredo DPM Work Phone: [facility]oplinBgcacdprug84-68-0962smxreh vaccine recombinant Alex Alfredo DPM Work Phone: [phone] [place], [place] [address]Unfdvpirzu59-33-7379zeslopgis, high dose seasonal, preservative-freeAlex Alfredo DPM Work Phone: [phone] [place], [place] [address]Qzfoedraro27-31-0409ikpyukdif, high dose seasonal, preservative-freeUlisesholas Yonatan DPM Work Phone: [facility] JoplinUqoxdvubfd03-69-3278khwatwdwn, injectable, quadrivalent, contains preservativeLyricas Yonatan DPM Work Phone: [phone] [place], [place] [address]Julaumchae83-05-3710ioeosrowdgmk conjugate vaccine, 13 valentAlex Alfredo DPM Work Phone: [phone] [place], [place] [address]Lqwtbmvcen52-11-0944riyqcejn influenza, intradermal, preservative freeUlisesholas Yonatan DPM Work Phone: [phone] [place], [place] [address]Ftieltzsqp79-41-0232mxktlvwr influenza, intradermal, preservative freeAlex Alfredo DPM Work Phone: [phone] [place], [place] [address]Zymlpzdyjx01-24-3910sksbchavlsci polysaccharide vaccine, 23 valentAlex Alfredo DPM Work Phone: [facility] JoplinYapulyzrle07-39-8868bgjqcm vaccine, liveNicbobby Alfredo DPM Work Phone: [facility] Payers DatePayer CategoryPayerPolicy [id number] Health Insurance [id number] [id number] [id number] [id number] [id number] [id number] 2.16.840.1.649906.3.57[id number] 2.16.840.1.454774.3.57[id number] 2.16.840.1.677545.3.57[id number] 2.16.840.1.337392.3.57[id number] 2.16.840.1.422756.3.57[id number] 2.16.840.1.854709.3.579.2.298007-99-3268Hakvxqe6113838 2.16.840.1.218493.3.57[id number] 2.16.840.1.606484.3.579.2.749991-13-4463Eurjfdx6415168 2.16.840.1.247670.3.579.2.169115-66-1834Crjjlbj7138411 2.16.840.1.295222.3.579.2.657459-56-2732Axjigba7324196 2.16.840.1.614909.3.579.2.513339-57-5956Fhqqzsb0180070 2.16.840.1.673913.3.579.2.528775-50-0008Oyiflaw1801108 2.16.840.1.244443.3.579.2.184420-95-3229Wvfgcnx3905145 2.16.840.1.582974.3.579.[id number] 2.16.840.1.201073.3.579.2.758083-05-4214Ltntivy1784327 2.16840.1.271687.3.579.2.432381-28-9453Ylfahyp4175698 2.16840.1.147378.3.579.[id number] 2.16.840.1.539523.3.579.2.352254-53-4109Mrfuzbt5613081 2.16840.1.600363.3.579.2.043031-40-7908Evhokwh8828153 2.16840.1.041828.3.579.2.155936-98-6619Bikytre3775126 2.16840.1.356039.3.579.2.195107-70-2464Wtitach7207528 2.16.840.1.757835.3.579.2.144350-39-3678Yahoqfx4804695 2.16.840.1.796056.3.579.2.301854-42-2265Gttxdqv7028923 2.16840.1.618628.3.579.2.837007-98-6157Tjuhdcp1498210 2.16840.1.024906.3.579.2.497602-98-3699Gkjflsi6963838 2.16840.1.847509.3.579.2.426141-12-5227Nbbdoxy782958248 2.840.1.191211.3.579.2.34404-88-4159Uuwigdq418533245 2.840.1.843050.3.579.2.9[id number] 2.840.1.228819.3.579.2.86875-65-0557Iriuevk615372546 2.840.1.926786.3.579.2.279910-13-6825Mgugxvr179935719 2.840.1.423211.3.579.2.7[id number] 2.840.1.294065.3.579.2.953288-66-1676Alvyhxx66761437 2.840.1.789666.3.579.2.525442-65-3871Xbmxqax26605938 2.840.1.877210.3.579.2.168201-29-0085Znfggcb94637861 2.840.1.381574.3.579.2.364423-20-3686Ladtnoh64725773 2.840.1.626734.3.579.2.711842-77-1438Gbrfonx29319104 2.16840.1.743248.3.579.2.952822-49-7430Hmzjawb16399150 2.16840.1.311425.3.579.2.1246 Social History DateTypeDetailFacilityStart: 11-25-2022 End: 47-27-9103Mstti a smokerNever a smokerNOMS Healthcare Work Phone: Start: 10-03-2022 End: 14-25-8756Qnwhium smoking status NHISNever smoked tobaccoNOMS Healthcare Start: 10-03-2022 End: 78-90-7415Zfggqcb use and exposureSmokeless tobacco non-userNOMS Healthcare Start: 06-01-2023 End: 84-31-4994Dsutwnq intakeLifetime non-drinker (finding)[facility] HealthcareStart: 11-25-2022 End: 00-05-0166Inkhrqxrsbz, Afraid, Rape, and Kick questionnaire [HARK][facility] [...] drinks on 1 occasion?NeverNOMS HealthcareStart: 03-26-2022 End: 27-72-9153Tjw hard is it for you to pay [...] got money to buy more.Never trueNOMS HealthcareStart: 51-75-0612Car Assigned At BirthNot on fileNOCO HealthcareStart: 07-05-2024 End: 60-03-9188Vtqtmxer to SARS-CoV-2 (event)Not [facility] HospitalStart: 41-40-8511Dltcgjlii beverage intakeEx-drinker (finding) [facility] Work Phone: NEGATED: Highlighted row---[facility] Work Phone: Medical Equipment Procedure CodeEquipment CodeEquipment Original TextEquipment IdentifierDates Screw, Low Profile Hex, 6.5 X 15 Mm Case [id number]: 01-29-2020 Comment on above:Description: Converted from Care Acute. Please see archived information for full log information.Screw, Low Profile Hex, 6.5 X 25 Mm Case [id number]: 73-09-4036Lmfokfo on above:Description: Converted from Care Acute. Please see archived information for full log information.Head, Femur V40 36mm +2.5mm Biolox Delta Case [id number]: 01-29-2020 Comment on above:Description: Converted from Care Acute. Please see archived information for full log information.Stem, Femur 132d Sz 5 Accolade Ii Case [id number]: 75-71-8057Gsnztek on above:Description: Converted from Care Acute. Please see archived information for full log information.Shell, Trident Ii, Clusterhole, [place] 52e Case [id number]: 58-28-3222Fhwcney on above:Description: Converted from Care Acute. Please see archived information for full log information.Liners, Poly 36 X 10 D Trid Crossfire E Case [id number]: 76-06-6101Jjolhth on above:Description: Converted from Care Acute. Please see archived information for full log information. Functional Status JblgZxwohjtrbhMweqbpEhtuqbae20-67-8521Cjgrzzs Health Questionnaire 2 item (PHQ- 2) [Reported][facility] Goinbyozpt73-77-7499Eavkmpd Health Questionnaire 2 item (PHQ- 2) [Reported][facility] Pudwtbzvar36-74-3304Idukksd Health Questionnaire 2 item (PHQ- 2) [Reported]NOM[facility] HealthcareNOMS HealthcareNEGATED: Highlighted rowFunctional performanceFunctional status health issues are not documented DiseaseMP-[facility] Work Phone: Mental Status DateAssessmentResultFacilityNEGATED: Highlighted rowCognitive function [Interpretation]Cognitive status health issues are not documented [facility]Park[facility] Work Phone: Clinical Notes 06-01-2023 to 2024 Note Date & FqfcMhzfCafpdubh20-40-8090 History of Present illness Narrative* Amber Hawley [...] INJECTION x7 NERVE BLOCK Left 03/26/2019 T12-L3 PA TOTAL HIP ARTHROPLASTY Left Napoleon (01-29-2020 to 01-30-2020) RADIOFREQUENCY ABLATION Left 06/25/2019 [...] (NEURONTIN) 300 mg, 2 times daily HYDROcodone-acetaminophen (Montrose) 5-325 mg tablet 1 tablet, Every 4 [...] XL (TOPROL-XL) 50 mg, oral, Every morning anjopohyabup-Oa-tyff-minerals tablet 1 tablet, Daily nortriptyline (PAMELOR) 30 [...] (241.3 mg elemental) tablet 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 Mixed hyperlipidemia simvastatin (Zocor) 10 mg [...] both accurate and complete. documented in this [facility] Work Phone: [phone]) 523-378307-18-2025 Instructions* Patient Instructions* Katty Alvarez LPN - [...] Provided instructions on exercise. documented in this encounterSumma Health [facility] Work Phone: [phone] 170-251206-19-2025 Telephone encounter Note* Telephone Encounter - Alpa Bhagat - 10/17/2024 3:12 PM EDT Luma was seen yesterday called stating that her medication was not sent in yet. Please [place]s to [facility] [place] [facility]linKxutmqrxph01-07-1308 Miscellaneous Notes* Telephone Encounter - Alpa Bhagat - 10/17/2024 3:12 PM EDT Luma was seen yesterday called stating that her medication was not sent in yet. Please send meds to [facility] [place] documented in this encounterMercy Hospital JoplinOogkfixdme16-17-9862 History of Present illness Narrative* Kamila Pride [...] 3 CAPSULES BY MOUTH AT BEDTIME ONCE EHBSP825 capsule 3 [DISCONTINUED] simvastatin (Zocor) 10 MG [...] INJECTION x7 NERVE BLOCK Left 03/26/2019 T12-L3 PA TOTAL HIP ARTHROPLASTY Left Napoleon (01-29-2020 to 01-30-2020) RADIOFREQUENCY ABLATION Left 06/25/2019 [...] No follow-ups on file. documented in this encounterMercy Hospital JoplinNhirmdbgvt95-33-4960 History of Present illness Narrative* Alex Alfredo [...] site Osteopenia Paroxysmal supraventricular tachycardia ([facility]) Medications: Current Outpatient Medications: albuterol [...] min Stress: No Stress Concern Present (11/25/2022) [employer] - Occupational Stress Questionnaire [...] 9 Alex Alfredo DPM documented in this encounterMercy Hospital JoplinAeslgxweyz87-40-0096 History of Present illness Narrative* Roc Steele [...] MOUTH TWICE DAILY 200 capsule 3 HYDROcodone-acetaminophen (Montrose) 5-325 MG tablet Take 1 tablet by [...] INJECTION x7 NERVE BLOCK Left 03/26/2019 T12-L3 PA TOTAL HIP ARTHROPLASTY Left Napoleon (01-29-2020 to 01-30-2020) RADIOFREQUENCY ABLATION Left 06/25/2019 [...] osteoporosis without current pathological fracture ([facility]) - Prolia injection today. Osteopenia of both hips Chronic cough - Consider ENT referral if it persists. Follow up in about 2 months (around 10/19/2024). documented in this encounterMercy Hospital JoplinHmvwvkwbkb63-60-2507 History of Present illness Narrative* Alex Alfredo [...] Cardiomegaly Diverticulosis 2013 Edema Glaucoma ([facility]) Heart disease, unspecified History of lumbar surgery multiple times HTN (hypertension) ([facility]) Hyperlipidemia ([facility]) Insomnia Lumbago Lumbosacral spondylosis without myelopathy Myalgia, unspecified site Myositis Occlusion and stenosis of unspecified carotid artery without mention of cerebral infarction CARO (obstructive sleep apnea) Osteoarthrosis unspecified wheteher generalized or localized. unspecified site Osteopenia Paroxysmal supraventricular tachycardia ([facility]) Medications: Current Outpatient Medications: [...] min Stress: No Stress Concern Present (11/25/2022) [employer] - Occupational Stress Questionnaire [...] 9 Alex Alfredo DPM documented in this encounterMercy Hospital JoplinVkcsoryrqn96-94-6739 History of Present illness Narrative* Kamila Pride [...] INJECTION x7 NERVE BLOCK Left 03/26/2019 T12-L3 PA TOTAL HIP ARTHROPLASTY Left Napoleon (01-29-2020 to 01-30-2020) RADIOFREQUENCY ABLATION Left 06/25/2019 [...] lozenges. Lumbosacral spondylosis without myelopathy - HYDROcodone-acetaminophen (Montrose) 5-325 MG tablet; Take 1 tablet by [...] osteoporosis without current pathological fracture ([facility]) - denosumab (Prolia) 60 MG/ML solution prefilled syringe; Inject 1 mL (60 mg) under the skin 1 (one) time for 1 dose Avoid falls as you can fracture. Take calcium with vitamin D. If you get this medication from your insurance, call the office and we can give you the medication No follow-ups on file. 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 Compared to EKG from December 2019, left axis deviation loss of lateral R waves were noted in December 2019.[facility] 07-15-2024 History of Present illness Narrative* Amber [...] wheeled walkers. Subjective : Was hospitalized at [facility] in May 2024. 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 Abnormal EKG Transthoracic Echo Complete 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 Lightheadedness Nuclear Stress Test Holter Or Event Plumbing Hardware Assembler 5. Chest discomfort Nuclear Stress Test Holter Or Event Plumbing Hardware Assembler 6. Palpitations Transthoracic Echo Complete Nuclear Stress Test Holter Or Event Plumbing Hardware Assembler 7. Primary hypertension 8. Stenosis of carotid [...] further questions arise, Sincerely, Amber Hawley MD [facility] IKatty LPN am scribing for, and in the presence of Dr. Amber Hawley MD, [facility]. I, Dr. Amber Hawley MD, [facility], personally performed the services described in the documentation as scribed by Katty Iverson LPN in my presence, and confirm it is both accurate and complete. documented in this [facility] Work Phone: [phone]) [phone] Instructions* Patient Instructions* Katty Alvarez LPN - [...] Provided instructions on exercise. documented in this [facility] Work Phone: 1(636) 198-596303-13-2025 History of Present illness Narrative* Katie Ritter LPN - 07/11/2024 1:00 PM EDT HPI Med Refill Additional comments: Lasix--DM sabas Last edited by Katie Ritter LPN on 07/11/2024 1:09 PM. * Kamila [...] Do you have a medical power of concrete inspector?: Yes Who is your medical power of concrete inspector?: Objective : BP 130/80 Pulse 87 Ht [...] panel 27. Routine general medical examination at [facility] care facility Reviewed all relevant preventative screenings with the patient in detail. Medicare Wellness form completed and will be scanned into patient's chart. All needed testing was ordered. Will continue withyearly Medicare Wellness exams. No orders of the defined types were placed in this encounter. Electronically signed by Kamila Pride NP on July 11, 2024 documented in this encounterMercy Hospital JoplinIlrldgwugt06-96-0790 History of Present illness Narrative* Kamila Pride [...] INJECTION x7 NERVE BLOCK Left 03/26/2019 T12-L3 PA TOTAL HIP ARTHROPLASTY Left Napoleon (01-29-2020 to 01-30-2020) RADIOFREQUENCY ABLATION Left 06/25/2019 [...] orders for this visit: Paroxysmal supraventricular tachycardia ([facility]) - Ambulatory referral to Cardiology; Future Awaiting cardiology appointment. She did not follow up with cardiology as she was supposed to when she got out of the hospital. New referral sent as she wants to go to the facer operator that her goes to. Primary insomnia [...] failure, unspecified heart failure type ([facility]) - Ambulatory referral to Cardiology; Future Awaiting cardiology appointment. She did not follow up with cardiology as she was supposed to when she got out of the hospital. New referral sent as she wants to go to the facer operator that her goes to. Stage 3b chronic kidney disease (HCC) ([facility]) - Comprehensive metabolic panel; Future - [...] No follow-ups on file. documented in this encounterMercy Hospital JoplinLohadcphwh52-81-2839 History of Present illness Narrative* Kamila Pride [...] for 3 days and she called the change person nurse and they advised her to go [...] INJECTION x7 NERVE BLOCK Left 03/26/2019 T12-L3 PA TOTAL HIP ARTHROPLASTY Left Napoleon (01-29-2020 to 01-30-2020) RADIOFREQUENCY ABLATION Left 06/25/2019 [...] to follow up with Dr. Chavez in [place] [facility]. Await his recommendations. She continue on [...] No follow-ups on file. documented in this encounterMercy Hospital JoplinVnczwoslvm98-05-9594 History of Present illness Narrative* Alex Alfredo, [...] Diagnosis Date Cardiomegaly Diverticulosis 2012 Edema Glaucoma ([facility]) Heart disease, unspecified History of lumbar surgery multiple times HTN (hypertension) ([facility]) Hyperlipidemia ([facility]) Insomnia Lumbago Lumbosacral spondylosis without myelopathy Myalgia, unspecified site Myositis Occlusion and stenosis of unspecified carotid artery without mention of cerebral infarction CARO (obstructive sleep apnea) Osteoarthrosis unspecified wheteher generalized or localized. unspecified site Osteopenia Paroxysmal supraventricular tachycardia ([facility]) Medications: Current Outpatient Medications: [...] min Stress: No Stress Concern Present (11/25/2022) [employer] - Occupational Stress Questionnaire [...] 9 Alex Alfredo DPM documented in this encounterMercy Hospital JoplinJqewzzmdzs10-27-8475 History of Present illness Narrative* Kamila Pride [...] INJECTION x7 NERVE BLOCK Left 03/26/2019 T12-L3 PA TOTAL HIP ARTHROPLASTY Left Napoleon (01-29-2020 to 01-30-2020) RADIOFREQUENCY ABLATION Left 06/25/2019 [...] No follow-ups on file. documented in this encounterMercy Hospital JoplinFoxtgzlgeq45-16-3853 History of Present illness Narrative* Kamila Pride NP - 05/15/2024 11:30 AM EST Images from the original note were not included. Subjective Patient ID: Luma Ribeiro is a 78 y.o. female who presents for A F/U FOR PNEUMONIA, CHF Luma presents today for F/U for pneumonia and CHF. Was admitted to [facility] on 05-12-24.She is feeling weak and SOB still. Home health has not started. Pt would benefit from Nursing, PT/OT, and aide. PT was diagnosed with generalized weakness, CHF, And pneumonia. She continues on Doxycycline. The hospital discharge pt with an order for Lasix prn. Pt educated on when to take a prn lasix. She verbalized understanding. The hospital set up [facility] but we will set pt up with Erik as theyhave a contract with [facility]. She is home bound due to her [...] INJECTION x7 NERVE BLOCK Left 03/26/2019 T12-L3 PA TOTAL HIP ARTHROPLASTY Left Napoleon (01-29-2020 to 01-30-2020) RADIOFREQUENCY ABLATION Left 06/25/2019 [...] No follow-ups on file. documented in this encounterMercy Hospital JoplinNveojsjuup98-69-5943 History of Present illness Narrative* Kamila Pride [...] TWICE DAILY 200 capsule 3 [] HYDROcodone-acetaminophen (Montrose) 5-325 MG tablet Take 1 tablet by [...] INJECTION x7 NERVE BLOCK Left 03/26/2019 T12-L3 PA TOTAL HIP ARTHROPLASTY Left Napoleon (01-29-2020 to 01-30-2020) RADIOFREQUENCY ABLATION Left 06/25/2019 [...] No follow-ups on file. documented in this encounterMercy Hospital JoplinSbdirckehg90-11-1119 Telephone encounter Note* Telephone Encounter - MERARY Pemberton - 04/16/2024 5:16 PM EST OARRS reviewed, Rx sent into patient's pharmacy. [facility] JoplinKolbnsinzi85-77-1104 Miscellaneous Notes* Telephone Encounter - MERARY Pemberton - 04/16/2024 5:16 PM EST OARRS reviewed, Rx sent into patient's pharmacy. documented in this encounterMercy Hospital JoplinOknstrdckh61-08-1344 History of Present illness Narrative* Kamila Pride [...] breathing, coughing, lifting and movement. Treatments tried: Montrose, cough syrup, muscle relaxer. The treatment provided [...] TWICE DAILY 200 capsule 3 [] HYDROcodone-acetaminophen (Montrose) 5-325 MG tablet Take 1 tablet by [...] INJECTION x7 NERVE BLOCK Left 03/26/2019 T12-L3 PA TOTAL HIP ARTHROPLASTY Left Napoleon (01-29-2020 to 01-30-2020) RADIOFREQUENCY ABLATION Left 06/25/2019 [...] breathing. Lumbosacral spondylosis without myelopathy - HYDROcodone-acetaminophen (Montrose) 5-325 MG tablet; Take 1 tablet by [...] No follow-ups on file. documented in this [facility]11-07-2024 NoteCarpal tunnel syndrome, left, severe. Progressed substantially when compared to EDX evaluation in 2021. C8 radiculopathy, left, moderate. Progressed when compared to EDX evaluation in 2021Mercy Hospital JoplinKokwvayoez62-83-3491 NoteCarpal tunnel syndrome, left, severe. Progressed substantially when compared to EDX evaluation in 2021. C8 radiculopathy, left, moderate. Progressed when compared to EDX evaluation in [address] [place], [place] [address]Gdasiarsiv37-09-3561 History of Present illness Narrative * Jimmy Gibson, SAMANTHA - 03/07/2024 11:00 AM EST Images from the original note were not included. Reason for Appointment: EMG Patient: Luma Ribeiro : 1945 EMG Computer: [employer] Referring Physician: Kamila Pride CNP EMG: PABLO choirmaster: Jimmy Gibson RT(R) Office Location: [place] Reason for EMG: c/o numbness/tingling in left hand/forearm especially in 2nd & 3rd digits, weakness in left hand. No hx of DM. Not on blood thinners. Comments: Procedure was explained to the patient who expressed understanding. Patient appeared to have tolerated the test well despite some discomfort due to the nature of the test. documented in this encounterMercy Hospital JoplinRhapdfgqxt87-77-0536 History of Present illness Narrative* Kamila Pride [...] inciting event Pt feels she has decreased decorator store strength in left hand Hypertension This is [...] MOUTH TWICE DAILY 200 capsule 3 HYDROcodone-acetaminophen (Montrose) 5-325 MG tablet Take 1 tablet by [...] at bedtime 90 tablet 1 [DISCONTINUED] HYDROcodone-acetaminophen (Montrose) 5-325 MG tablet Take 1 tablet by [...] INJECTION x7 NERVE BLOCK Left 03/26/2019 T12-L3 PA TOTAL HIP ARTHROPLASTY Left Napoleon (01-29-2020 to 01-30-2020) RADIOFREQUENCY ABLATION Left 06/25/2019 [...] need - Influenza, high-dose seasonal, quadrivalent, PF (ZLM302) (Fluzone High Dose Quad North 0.7mL dose) [...] No follow-ups on file. documented in this encounterMercy Hospital [id number] Telephone encounter Note* Telephone Encounter - MERARY Pemberton - 02/29/2024 8:50 AM EDT OARRS reviewed, Rx sent into patient's pharmacy. [id number] Miscellaneous Notes* Telephone Encounter - MERARY Pemberton - 02/29/2024 8:50 AM EDT OARRS reviewed, Rx sent into patient's pharmacy. * Telephone Encounter - Alpa Bhagat - 02/29/2024 8:07 AM EDT Hydrocodone 325 DDM IN [place] She had an appt today for a med follow up with kamila but had to change it due to her not being in.She said she has about 6 pills left. She did reschedule her med follow up for next Monday. documented in this encounterMercy Hospital [id number] Telephone encounter Note* Telephone Encounter - Alpa Bhagat - 02/29/2024 8:07 AM EDT Hydrocodone 325 DDM IN [place] She had an appt today for a med follow up with kamila but had to change it due to her not being in.She said she has about 6 pills left. She did reschedule her med follow up for next Monday. [facility] [id number] Telephone encounter Note* Telephone Encounter - MERARY Pemberton - 01/29/2024 3:20 PM EDT Amlodipine sent [id number] Miscellaneous Notes* Telephone Encounter - MERARY Pemberton - 01/29/2024 3:20 PM EDT Amlodipine sent documented in this encounterMercy Hospital [id number] History of Present illness Narrative* Alex Alfredo, [...] Cardiomegaly Diverticulosis 2013 Edema Glaucoma ([facility]) Heart disease, unspecified History of lumbar surgery multiple times HTN (hypertension) ([facility]) Hyperlipidemia ([facility]) Insomnia Lumbago Lumbosacral spondylosis [...] min Stress: No Stress Concern Present (11/25/2022) [employer] - Occupational Stress Questionnaire [...] Patient may continue with conservative treatments including znev-mva-ajixmqf anti- inflammatories and other treatments suggested today. Patient may want to be s cheduled for surgical intervention in the near future. Patient have the right hallux subungual exostectomy with the lateral left hallux partial permanent nail avulsion in the near future Alex Alfredo DPM documented in this encounterMercy Hospital [id number] History of Present illness Narrative* Alex Alfredo [...] Cardiomegaly Diverticulosis 2013 Edema Glaucoma ([facility]) Heart disease, unspecified History of lumbar surgery multiple times HTN (hypertension) ([facility]) Hyperlipidemia ([facility]) Insomnia Lumbago Lumbosacral spondylosis [...] min Stress: No Stress Concern Present (11/25/2022) [employer] - Occupational Stress Questionnaire [...] Patient may continue with conservative treatments including mdli-czo-qnfrmis anti- inflammatories and other treatments suggested today. [...] future Alex Alfredo DPM documented [facility]* Diagnosis Subungual exostosis of great [...] Morbid (severe) obesity due to excess calories ([facility]) Body mass index (BMI) 45.0-49.9, adult ([facility]) documented in this encounter [facility]* Diagnosis Edema, unspecified type- Primary Pulmonary fibrosis, unspecified (CMS/HCC) Acute congestive heart failure, unspecified heart failure type (CMS/HCC) Generalized weakness Pneumonia of both lungs due to infectious organism, unspecified part of lung documented in this encounter [facility]* Diagnosis Stage 3b chronic kidney disease (HCC) (CMS/HCC)- Primary Benign essential hypertension ([facility]/HCC) Essential hypertension, benign Hypomagnesemia Disorders of [...] failure, unspecified heart failure type ([facility]/HCC) Acute non-recurrent pansinusitis documented in this encounter [facility]* Diagnosis Paroxysmal supraventricular tachycardia ([facility])- Primary Paroxysmal supraventricular tachycardia Primary insomnia Persistent disorder of initiating or maintaining sleep Acute congestive heart failure, unspecified heart failure type (CMS/HCC) Stage 3b chronic kidney disease (HCC) ([facility]) Weakness Other malaise and fatigue Other fatigue Pain of right hip Fall, initial encounter documented in this encounter [facility]* Diagnosis Insomnia, unspecified type- Primary Obstructive sleep apnea Obstructive sleep apnea (adult) (pediatric) Chronic cough Cough Benign essential hypertension (CMS/HCC) Essential hypertension, benign Cardiomegaly Exudative age-related macular degeneration of left eye with active choroidal neovascularization ([facility]/HCC) 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, unspecified laterality Paroxysmal supraventricular tachycardia ([facility]/HCC) Paroxysmal supraventricular tachycardia Gastroesophageal reflux disease with esophagitis without hemorrhage Lumbosacral spondylosis without myelopathy Osteoarthritis of multiple joints, unspecified osteoarthritis type Other secondary osteoarthritis of multiple sites Osteopenia of both hips Primary osteoarthritis of right hip IGT (impaired glucose tolerance) Impaired glucose tolerance test Morbid obesity due to excess calories ([facility]) Vitamin D deficiency Anxiety Anxiety state, unspecified Decreased estrogen level Difficulty walking Difficulty in walking Localized edema Edema Hyperlipidemia, unspecified hyperlipidemia type ([facility]) 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 Acute low back pain without sciatica, unspecified back pain laterality Recurrent falls Medicare annual wellness visit, subsequent Routine general medical examination at health care facility Routine general medical examination at a health care facility Chronic congestive heart failure, unspecified heart failure type ([facility]) documented in this encounter [facility] HealthcareEvaluation note* Diagnosis Encounter to establish care with new doctor Paroxysmal supraventricular tachycardia ([facility]) Paroxysmal supraventricular tachycardia Abnormal EKG Nonspecific abnormal [...] Never smoked cigarettes documented in this encounter [facility] Work Phone: Evaluation note* Diagnosis Pain due to onychomycosis of toenails of both feet- Primary documented in this encounter [facility] HealthcareEvaluation [facility]* Diagnosis SOB (shortness of breath)- Primary Shortness of breath Chronic cough Cough Lumbosacral spondylosis without myelopathy Seasonal allergic rhinitis, unspecified trigger Age-related osteoporosis without current pathological fracture ([facility]) documented in this encounter [facility] HealthcareEvaluation note* Diagnosis Age-related osteoporosis without current pathological fracture ([facility])- Primary Osteopenia of both hips Chronic cough Cough documented in this encounter [facility] HealthcareEvaluation note* Diagnosis Lightheadedness Dizziness and giddiness Chest discomfort Other chest pain Palpitations Mixed hyperlipidemia documented in this encounter [facility] Work Phone: Evaluation note* Diagnosis Paroxysmal supraventricular tachycardia Abnormal EKG Nonspecific abnormal electrocardiogram (ECG) (EKG) Palpitations documented in this encounter [facility] Work Phone: Evaluation note* Diagnosis Pain due to onychomycosis of toenails of both feet- Primary documented in this encounter [facility] HealthcareEvaluation note* Diagnosis Acute low back pain without sciatica, unspecified back pain laterality- Primary documented in this encounter [facility]* Diagnosis Lumbosacral spondylosis without myelopathy documented in this encounter [facility] HealthcareEvaluation note* Diagnosis Encounter to discuss test results- Primary Other specified counseling Uses roller walker Palpitations Mixed hyperlipidemia Chest discomfort Other chest pain CARO on CPAP Paroxysmal supraventricular tachycardia Never smoked cigarettes Body mass index (BMI) 40.0-44.9, adult (Multi) documented in this encounter [facility] Work Phone: History of Present illness NarrativeLuma is a 75-year-old female patient of Dr. Bird who is here for ultrasound-guided right intraarticular shoulder injection. She has a history of pain and discomfort. She was seen and evaluated and referred to me for first lifetime intraarticular shoulder injection, which the patient accepts.-[facility] [place] [facility] Work Phone: History [...] normal pronation supination wrist flexion extension and decorator store strength. Distal pulses and sensation are intact. Limited forward flexion to about 25 degrees lateral abduction to about 15 unable to perform any external rotation but internal he can get to the small of her back. Herexam does not allow for much of a true Neer's Shelby or Earth's test. * Diagnostics: See dictated report from today, previous outside CT scan report of the humerus reviewed, and is available in the [facility] chart. * Procedure: None * [...] the patient's CT scan report reviewed in [facility] chart Other than the anterior medial dislocation [...] grammatical areas may persist related to the [employer] software * Taniya Al MD * Office: * . -[place] [facility] Work Phone: History of Present illness [...] Cardiomegaly Diverticulosis 2013 Edema Glaucoma ([facility]) Heart disease, unspecified History of lumbar surgery multiple times HTN (hypertension) ([facility]) Hyperlipidemia ([facility]) Insomnia Lumbago Lumbosacral spondylosis without myelopathy Myalgia, unspecified site Myositis Occlusion and stenosis of unspecified carotid artery without mention of cerebral infarction CARO (obstructive sleep apnea) Osteoarthrosis unspecified wheteher generalized or localized. unspecified site Osteopenia Paroxysmal supraventricular tachycardia ([facility]) Medications: Current Outpatient Medications: [...] min Stress: No Stress Concern Present (11/25/2022) [employer] - Occupational Stress Questionnaire [...] To ContactNeurology Diagnoses Numbness of hand Procedures PA OFFICE/OUTPATIENT NEW HIGH MDM 60 MINUTES Kamila Pride, CLOTH HAND [address] [facility] [address] [place] [address] Phone: tel: fax: Waqas Dugan DO [address] [place] [address] Phone: tel: fax: Referral IDStatusReasonStart DateExpiration DateVisits RequestedVisits [id number] Perform Procedure [facility] Narrative* Cardiac Stress Testing (Routine) - AuthorizedSpecialtyDiagnoses / ProceduresReferred By ContactReferred To ContactRadiology Diagnoses Lightheadedness Chest discomfort Palpitations Mixed hyperlipidemia Procedures Nuclear Stress Test CHG MYOCARDIAL SPECT MULTIPLE STUDIES Amber Hawley MD [address] [place] [address] [address] [place] [address] Phone: tel: fax: Referral IDStatusReasonStart DateExpiration DateVisits RequestedVisits [id number]/[id number]/[id number] [facility] Work Phone: Resizk for visit Narrative* Cardiac Stress Testing (Routine) - AuthorizedSpecialtyDiagnoses / ProceduresReferred By Contact Referred To ContactRadiology Diagnoses Lightheadedness Chest discomfort Palpitations Mixed hyperlipidemia Procedures Nuclear Stress Test CHG MYOCARDIAL SPECT MULTIPLE STUDIES Amber Hawely MD [address] [address] Phone: tel: fax: Referral IDStatusReasonStart DateExpiration DateVisits RequestedVisits [id number]/17/20253/17/202655 [facility] Work Phone: reason for visit Narrative* CV Imaging (Routine) - AuthorizedSpecialtyDiagnoses / ProceduresReferred By ContactReferred To ContactCardiology Diagnoses Paroxysmal supraventricular tachycardia Abnormal EKG Palpitations Procedures Transthoracic Echo Complete PA ECHO TTHRC R-T 2D W/WOM-MODE COMPL SPEC&COLR D Amber Hawley MD [address] [facility] [address] [place] [address] Phone: tel: fax: Referral IDSEduardo DateExpiration DateVisits RequestedVisits [id number] Perform Procedure [facility] Work Phone: Chief Complaint * New problem * Right shoulder pain MP Refer : RT shoulder ultra sound guided injection* Right shoulder pain, here for injection. 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 Summary Purpose Family History No [...] section and content) DATE CREATED AUTHOR 09/08/2022 [facility] DATE CREATED AUTHOR AUTHOR'S ORGANIZ ATION 09/12/2022 [facility] DATE CREATED AUTHOR AUTHOR'S ORGANIZ ATION 10/09/2022 [facility] DATE CREATED AUTHOR AUTHOR'S ORGANIZ ATION 10/09/2022 ice DATE CREATED AUTHOR AUTHOR'S ORGANIZ ATION 05/01/2024 [facility] DATE CREATED AUTHOR AUTHOR'S ORGANIZ ATION 07/28/2024 [facility] DATE CREATED AUTHOR AUTHOR'S ORGANIZ ATION 10/19/2024 [facility] DATE CREATED AUTHOR AUTHOR'S ORGANIZ ATION 11/16/2024 [facility] DATE CREATED AUTHOR AUTHOR'S ORGANIZ ATION 11/22/2024 [facility] DATE CREATED AUTHOR AUTHOR'S ORGANIZ ATION 11/23/2024 [facility] Reason for Visit (unrecogniz ed section [...] Procedures ECG 12 Lead Amber Hawley MD [address] [place] [address] Phone: tel: fax: Referral IDStatusReasonStart DateExpiration DateVisits RequestedVisits [id number]/[id number]/[id number] injection Here for injection billed and shipped from [facility] rxOsteoporosisReasonComments Toenail CareNon dm naiil careReasonOnset DateCommentsMed Llgusx5210/16/2024Reason CommentsFollow-upMlp, echo resultsSpecialtyDiagnoses / ProceduresReferred By ContactReferred To ContactCardiology Diagnoses Paroxysmal supraventricular tachycardia Procedures Follow Up In Cardiology Amber Hawley MD [address] [place] [address] Phone: tel: fax: Amber Hawley MD [address] [place] [address] Phone: tel: fax: Referral IDStatusReasonStart DateExpiration DateVisits RequestedVisits [id number]/17/20253/17/202611 Care Teams (unrecognized sec tion and content) Team MemberRelationshipSpecialtyStart DateEnd Date Roc Steele MD [address] [place] [address] PCP - [facility]09/22/22 Roc Steele MD [address] [place] [address] PCP - [facility]09/28/22Team MemberRelationshipSpecialtyStart Date End Date Roc Steele MD [address] [place] [address] [facility]09/22/22 Roc Steele MD [address] [place] [address] PCP - [facility]09/28/22Team MemberRelationshipSpecialtyStart Date End Date Roc Steele MD [address] [place] [address] [facility] - [facility]09/22/22 Roc Steele MD [address] [place] [address] PCP - [facility]09/28/22Team MemberRelationshipSpecialtyStart Date End Date Roc Steele MD [address] [place] [address] PCP - [facility]09/28/22 Roc Steele MD [address] [place] [address] [facility]08/30/23Team MemberRelationshipSpecialtyStart DateEnd Date Roc Steele MD [address] [place] [address] PCP - [facility]09/28/22 Roc Steele MD [address] [place] [address] [facility]08/30/23Team MemberRelationshipSpecialtyStart DateEnd Date Roc Steele MD [address] [place] [address] PCP - [facility]09/28/22 Roc Steele MD [address] [place] [address] [facility]08/30/23Team MemberRelationshipSpecialtyStart DateEnd Date Roc Steele MD [address] [place] [address] PCP - [facility]09/28/22 Roc Steele MD [address] [place] [address] [facility]08/30/23Team MemberRelationshipSpecialtyStart DateEnd Date Roc Steele MD [address] [place] [address] PCP - [facility]09/28/22 Roc Steele MD [address] [place] [address] PCP - [facility]08/30/23Team MemberRelationshipSpecialtyStart DateEnd Date Roc Steele MD [address] [place] [address] PCP - GeneralInternal Medicine09/28/22 Roc Steele MD [address] [place] [address] PCP - [facility]08/30/23Team MemberRelationshipSpecialtyStart DateEnd Date Roc Steele MD [address] [place] [address] [facility]09/28/22 Roc Steele MD [address] [place] [address] PCP - [facility] [place]08/30/23 Waqas Dugan DO [address] [place] [address] Referring CawaiigmsZfmnjctxm93/7/24Team MemberRelationshipSpecialtyStart DateEnd Date Roc Steele MD [address] [place] [address] [facility] - [facility]09/28/22 Roc Steele MD [address] [place] [address] PCP - [facility]08/30/23 Waqas Dugan DO [address] [place] [address] Referring ZcodlvyywKwztloqdp29/7/24Team MemberRelationshipSpecialtyStart DateEnd Date Roc Steele MD [address] [place] [address] PCP - GeneralInternal Medicine09/28/22 Roc Steele MD [address] [place] [address] PCP - [facility]08/30/23 Waqas Dugan DO [address] [place] [address] Referring EfcejjuqfAvvbsnlfp06/7/24Team MemberRelationshipSpecialtyStart DateEnd Date Roc Steele MD [address] [place] [address] PCP - GeneralInternal Medicine09/28/22 Roc Steele MD [address] [place] [address] PCP - [facility]08/30/23 Waqas Dugan DO [address] [place] [address] Referring JrhodtvwjNvfbfhbah05/7/24Team MemberRelationshipSpecialtyStart DateEnd Date Roc Steele MD [address] [place] [address] PCP - GeneralInternal Medicine09/28/22 Roc Steele MD [address] [place] [address] PCP - [facility]08/30/23 Waqas Dugan DO [address] [place], [place] [address] Referring FechnhbqdXvtjwmzjf19/7/24Team MemberRelationshipSpecialtyStart DateEnd Date Roc Steele MD [address] [place] [address] PCP - GeneralInternal Medicine09/28/22 Roc Steele MD [address] [place] [address] PCP - [facility]08/30/23Team MemberRelationshipSpecialtyStart DateEnd Date Roc Steele MD [address] [place] [address] PCP - GeneralInternal Medicine09/28/22 Roc Steele MD [address] [place] [address] PCP - [facility]08/30/23 Waqas Dugan DO [address] [place] [address] Referring ZjzncbotqXjvqwvaeu75/7/24Team MemberRelationshipSpecialtyStart DateEnd Date Roc Steele MD [address] [place] [address] PCP - GeneralInternal Medicine09/28/22 Roc Steele MD [address] [place] [address] PCP - [facility]08/30/23 Waqas Dugan DO [address] [place] [address] Referring FlfsvsbmbGuijetwpd94/7/24Team MemberRelationshipSpecialtyStart DateEnd Date Roc Steele MD [address] [place] [address] PCP - GeneralInternal Medicine09/28/22 Roc Steele MD [address] [place] [address] PCP - [facility]08/30/23 Waqas Dugan DO [address] [place] [address] Referring VvymjvnkyNzbtfsqsb59/7/24Team MemberRelationshipSpecialtyStart DateEnd Date Roc Steele MD [address] [place] [address] PCP - GeneralInternal Medicine09/28/22 Roc Steele MD [address] [place] [address] PCP - [facility]08/30/23 Waqas Dugan DO [address] [place] [address] Referring QvgkhkgabElcjtgmne58/7/24Team MemberRelationshipSpecialtyStart DateEnd Date Roc Steele MD [address] [place] [address] PCP - GeneralInternal Medicine09/28/22 Roc Steele MD [address] [place] [address] PCP - ACO [facility]08/30/23 Waqas Dugan DO [address] [place] [address] Referring IjiqtjeolBwgmdfbko14/7/24Team MemberRelationshipSpecialtyStart DateEnd Date Roc Steele MD [address] [place] [address] PCP - [facility]09/28/22 Roc Steele MD [address] [place] [address] PCP - ACO [facility]08/30/23 Waqas Dugan DO [address] [place] [address] Referring OdnaolzegWkcphznfj31/7/24Team MemberRelationshipSpecialtyStart DateEnd Date Roc Steele MD [address] [place] [address] PCP - [facility]09/28/22 Roc Steele MD [address] [place] [address] PCP - ACO [facility]08/30/23 Waqas Dugan DO [address] [place] [address] Referring KwtwmwfajWdyrroqaj37/7/24Team MemberRelationshipSpecialtyStart DateEnd Date Roc Steele MD [address] [place] [address] PCP - GeneralInternal Medicine09/28/22 Roc Steele MD [address] [place] [address] PCP - [facility]08/30/23 Waqas Dugan DO [address] [place] [address] Referring RqqexsqihRhoeuxirl23/7/24 Raya Holt, CARMEN Clinical AdvocateFacharlton [facility] Medicine06/07/24Team MemberRelationshipSpecialtyStart Date End Date Roc Steele MD [address] [place] [address] PCP - GeneralInternal Medicine09/28/22 Roc Steele MD [address] [place] [address] PCP - [facility]08/30/23 Waqas Dugan DO [address] [place] [address] Referring FvzyprbtzVtdfzugrv66/7/24 Raya Holt RN Clinical AdvocateFach[facility] Medicine06/07/24Team MemberRelationshipSpecialtyStart Date End Date Roc Steele MD [address] [place] [address] PCP - GeneralInternal Medicine09/28/22 Roc Steele MD [address] [place] [address] PCP - [facility]08/30/23 Waqas Dugan DO [address] [place] [address] Referring RjzelhwcyKkdfkmfzk77/7/24 Raya Holt, CARMEN Clinical [facility]ocate[facility] Medicine06/07/24Team MemberRelationshipSpecialtyStart Date End Date Roc Steele MD [address] [place] [address] PCP - GeneralInternal Medicine09/28/22 Roc Steele MD [address] [place] [address] PCP - [facility]08/30/23 Waqas Dugan DO [address] [place] [address] Referring AuxqpvpmvAcztjbnsl22/7/24 Raya Holt, CARMEN Clinical AdvocateFacharlton memorial hospital Medicine06/07/24Team MemberRelationshipSpecialtyStart Date End Date Roc Steele MD [address] [place] [address] PCP - GeneralInternal Medicine09/28/22 Roc Steele MD [address] [place] [address] PCP - ACO Reach08/30/23 Waqas Dugan DO [address] [place] [address] Referring EwwujdmftKrrsxugcx92/7/24 Raya Holt, RN Clinical AdvocateFadely Medicine06/07/24Team MemberRelationshipSpecialtyStart Date End Date Roc Steele MD [address] [place] [address] PCP - General10/04/22Team MemberRelationshipSpecialtyStart DateEnd Date Roc Steele MD [address] [place] [address] PCP - GeneralInternal Medicine09/28/22 Roc Steele MD [address] [place] [address] PCP - ACO Reach08/30/23 Waqas Dugan DO [address] [place] [address] Referring PbepxojxfJglhceqsv97/7/24 Gladis Laird LPN 07/19/24Team MemberRelationshipSpecialtyStart DateEnd Date Roc Steele MD [address] [place] [address] PCP - GeneralInternal Medicine09/28/22 Roc Steele MD [address] [place] [address] PCP - ACO Reach08/30/23 Waqas Dugan DO [address] [place] [address] Referring GrxpaeknjKyzdasoko59/7/24 Gladis Laird LPN 07/19/24Team MemberRelationshipSpecialtyStart DateEnd Date Roc Steele MD [address] [place] [address] PCP - GeneralInternal Medicine09/28/22 Roc Steele MD [address] [place] [address] PCP - ACO Reach08/30/23 Waqas Dugan DO [address] [place] [address] Referring LyjnnaqytEylujehyj61/7/24 Gladis Laird [facility] 07/19/24Team MemberRelationshipSpecialtyStart DateEnd Date Roc Steele MD [address] [place] [address] PCP - GeneralFlorence Community Healthcarenal Medicine09/28/22 Roc Steele MD [address] [place] [address] PCP - ACO Reach08/30/23 Waqas Dugan DO [address] [place] [address] Referring JqipgpcgiNsrzttzgs81/7/24 Gladis Laird [facility] 07/19/24Team MemberRelationshipSpecialtyStart DateEnd Date Roc Steele MD [address] [place] [address] PCP - GeneralInternal Medicine09/28/22 Roc Steele MD [address] [place] [address] PCP - ACO Reach08/30/23 Waqas Dugan DO [address] [place] [address] Referring EtyyllevgPsgnhdfbb18/7/24 Gladis Laird, STRATEGIC COMMUNICATIONS SPECIALIST 07/19/24Team MemberRelationshipSpecialtyStart DateEnd Date Roc Steele MD [address] [place] [address] PCP - General10/04/22Team MemberRelationshipSpecialtyStart DateEnd Date Roc Steele MD [address] [place] [address] PCP - General10/04/22Team MemberRelationshipSpecialtyStart DateEnd Date Roc Steele MD [address] [place] [address] PCP - General10/04/22Team MemberRelationshipSpecialtyStart DateEnd Date Roc Steele MD [address] [place] [address] PCP - GeneralInternal Medicine09/28/22 Roc Steele MD [address] [place] [address] PCP - ACO Reach08/30/23 Waqas Dugan DO [address] [place] [address] Referring RrglalfseGpxkxfwbo39/7/24 Gladis Laird, STRATEGIC COMMUNICATIONS SPECIALIST 07/19/24Team MemberRelationshipSpecialtyStart DateEnd Date Roc Steele MD [address] [place] [address] PCP - GeneralInternal Medicine09/28/22 Roc Steele MD [address] [place] [address] PCP - ACO Reach08/30/23 Waqas Dugan DO [address] [place] [address] Referring JvwmunvhwIsjclamax23/7/24 Gladis Laird LPN 07/19/24Team MemberRelationshipSpecialtyStart DateEnd Date Roc Steele MD [address] [place] [address] PCP - GeneralInternal Medicine09/28/22 Roc Steele MD [address] [place] [address] PCP - ACO Reach08/30/23 Waqas Dugan DO [address] [place] [address] Referring TyrbwngkeVttzobyqi75/7/24 Gladis Laird LPN [address] [place] [address] 07/19/24Team MemberRelationshipSpecialtyStart DateEnd Date Roc Steele MD [address] [place] [address] PCP - GeneralInternal Medicine09/28/22 Roc Steele MD [address] [place] [address] PCP - ACO Reach08/30/23 Waqas Dugan DO [address] [place] [address] Referring YrelfbjpyGrzzshumg83/7/24 Gladis Laird LPN [address] [place] [address] 07/19/24Team MemberRelationshipSpecialtyStart DateEnd Date Roc Steele MD [address] [place] [address] PCP - GeneralInternal Medicine09/28/22 Roc Steele MD [address] [place] [address] PCP - ACO Reach08/30/23 Waqas Dugan DO [address] [place] [address] Referring ZqmuipgmbEjvzoxhbg65/7/24 Gladis Laird LPN [address] [place] [address] 07/19/24Team MemberRelationshipSpecialtyStart DateEnd Date Roc Steele MD [address] [place] [address] PCP - General10/04/22Team MemberRelationshipSpecialtyStart DateEnd Date Roc Steele MD [address] [place] [address] PCP - GeneralInternal Medicine09/28/22 Roc Steele MD [address] [place] [address] PCP - ACO Reach08/30/23 Waqas Dugan DO [address] [place] [address] Referring DejjkzgaoUpxebsbyc09/7/24 Gladis Laird LPN [address] [facility] [address] [place] [address] 07/19/24Team MemberRelationshipSpecialtyStart DateEnd Date Roc Steele MD [address] [facility] [address] [place] [address] PCP - ACO Reach09/22/ Roc Steele MD [address] [facility] [address] [place] [address] PCP - GeneralFlorence Community Healthcarenal Medicine09/28/22 Roc Steele MD [address] [facility] [address] [place] [address] PCP - ACO Reach08/30/23 Waqas Dugan DO [address] [place] [address] Referring DcqkyajhbWutjwwwkv96/7/24 Raya Holt, CARMEN [address] [place] [address] Clinical AdvocateFamily Medicine Gladis Laird LPN [address] [facility] [address] [place] [address] 07/19/24 FOR RECORDS PERTAINING TO PATIENTS WHO [...] BE BASED ON THE PRIMARY CLINICAL RECORDS. [facility]. provides no warranty or guarantee of the accuracy or completeness of information in this document.
--- OUTSIDE RECORDS SUMMARY | 2025-03-28 10:01 | XMS_ITS | Encounter Summary ---
Author Organization [facility] Address [address] [place] [address] Care Team Providers Care Export Documents Clerk Name Role Phone Roc Steele MD Primary Care Provider [phone] Roc Steele MD Unavailable [phone] Luis Felipe Dugan DO Unavailable [phone] Gladis Laird LPN Unavailable Encounter Details DateTypeDepartmentCare Team (Latest Contact Info)Kyqcftocpcp87/26/2025Orders Only [facility] [place] [facility] [address] [place] [address] Aarti Castillo, LABEL STITCHER [address] [place] [address] Dysuria Social History Tobacco UseTypesPacks/DayYears UsedDateSmoking Tobacco: NeverSmokeless Tobacco: NeverAlcohol UseStandard Drinks/WeekCommentsNever0 (1 standard drink = 0.6 oz pure alcohol)B1300 Health LiteracyAnswerDate RecordedHow often do you need to have someone help you when you read instructions, pamphlets, or other written material from your doctor or pharmacy?Never02/02/2024Humiliation, Afraid, Rape, and Kick questionnaireAnswerDate RecordedWithin the last year, have you been afraid of your partner or ex-partner?No11/25/2022Within the last year, have you been humiliated or emotionally abused in other ways by your partner or ex-partner?No11/25/2022Within the last year, have you been kicked, hit, slapped, or otherwise physically hurt by your partner or ex-partner?No11/25/2022Within the last year, have you been raped or forced to have any kind of sexual activity by your partner or ex-partner?No11/25/2022Social Connection and Isolation Panel AnswerDate RecordedIn a typical week, how many times do you talk on the phone with family, friends, or neighbors?More than three times a week11/25/2022How often do you get together with friends or relatives?Once a week11/25/2022How often do you attend jain or buddhist services?Never11/25/2022o you belong to any clubs or organizations such as jain groups, unions, fraAmerican Biomass or athletic groups, or school groups?No11/25/2022How often do you attend meetings of the clubs or organizations you belong to?Never11/25/2022re you , , , , never , or living with a partner?Xrnyecj3311/25/2022 AUDIT-CAnswerDate RecordedQ1: How often do you have a drink containing alcohol? Monthly or less11/25/2022Q2: How many drinks containing alcohol do you have on a typical day when you are drinking?1 or Q3: How often do you have six or more drinks on one occasion?Never11/25/2022Overall Financial Resource Strain (CARDIA)AnswerDate RecordedHow hard is it for you to pay for the very basics like food, housing, medical care, and heating?Not hard at all11/25/2022HQ-2 AnswerDate RecordedPatient Health Questionnaire-2 Xrzte658F[facility] [place] of Occupational Health - Occupational Stress QuestionnaireAnswerDate RecordedDo you feel stress - tense, restless, nervous, or anxious, or unable to sleep at night because yourmind is troubled all the time - these days?Only a zaqasl9711/25/2022Exercise Vital SignAnswerDate RecordedOn average, how many days per week do you engage in moderate to strenuous exercise (like a brisk walk)?0 days11/25/2022On average, how many minutes do you engage in exercise at this level?0 min11/25/2022Hunger Vital SignAnswerDate RecordedWithin the past 12 months, you worried that your food would run out before you got the money to buy more.Never true11/25/2022Within the past 12 months, the food you bought just didn't last and you didn't have money to get more.Never true11/25/2022RAPARE - TransportationAnswerDate RecordedIn the past 12 months, has lack of transportation kept you from medical appointments or from getting medications?No 11/25/2022In the past 12 months, has lack of transportation kept you from meetings, work, or from getting things needed for daily living?No11/25/2022 Housing Stability Vital SignAnswerDate RecordedIn the last 12 months, was there a time when you were not able to pay the mortgage or rent on time?No11/25/2022In the last 12 months, how many places have you lived?In the last 12 months, was there a time when you did not have a steady place to sleep or slept in ashelter (including now)?No11/25/2022CommentsUnknownSex and Gender InformationValueDate RecordedSex Assigned at BirthNot on fileLegal SexFemale 07/13/2022 7:20 PM EDTGender IdentityNot on fileSexual OrientationNot on file documented as of this encounter Plan of Treatment DateTypeDepartmentCare Team (Latest Contact Info)Ykdrkkzumlt37/05/2026 1:40 PM ESTProcedure Visit [facility] 112 [facility] 120 [place] [id number] Alex Tam DPM 3[address] [facility] 5 [place] [address] NameTypePriorityAssociated DiagnosesOrder ScheduleUrinalysis with reflex microscopic (clean catch)LabRoutine Dysuria Expected: 03/26/2025 (Approximate), Expires: 03/26/2026documented as of this encounter Visit Diagnoses Diagnosis Dysuria documented in this encounter Additional Health Concerns AssessmentNoted TimePHQ-9 Depression Total Score: 3:00 PM EST documented as of this encounter Care Teams Team MemberRelationshipSpecialtyStart DateEnd Date Roc Steele MD [address] [facility] 110 [place] [address] PCP - GeneralInternal Medicine09/28/22 Roc Steele MD [address] [facility] 110 [place] [address] PCP - ACO Reach08/30/23 Luis Felipe Dugan DO [address] [place] [address] Referring NzvvqelgiBnnkgqrvl72/7/24 Gladis Laird LPN [address] [facility] 110 [place] [address] 07/19/24documented as of this encounter
--- OUTSIDE RECORDS SUMMARY | 2025-03-28 10:01 | XMS_ITS | Clinical Summary ---
Author Organization [facility] Address [address] [place] [address], [address] [place] [address] Care Team Providers Care Acid Bleacher Name Role Phone Unavailable Primary Care Provider Unavailabl e Social History Tobacco UseTypesPacks/DayYears UsedDateSmoking Tobacco: Never Assessed CommentsUnknownSex and Gender InformationValueDate RecordedSex Assigned at Not on fileLegal XheTjykbq73/10/2013 4:42 PM ESTGender IdentityNot on fileSexual OrientationNot on file Plan of Treatment Not on file
--- OUTSIDE RECORDS SUMMARY | 2025-03-28 10:01 | XMS_ITS | Encounter Summary ---
Author Organization [facility] Address [address] [place] [address] Care Team Providers Care Subassembler Name Role Phone Roc Steele MD Primary Care Provider [phone] Roc Steele MD Unavailable [phone] Luis Felipe Dugan DO Unavailable [phone] Gladis Laird LPN Unavailable Encounter Details DateTypeDepartmentCare Team (Latest Contact Info)Royjxhytwxp71/17/2025Patient Outreach [facility] [address] [place] [address] Gladis Laird LPN [address] [place] [address] Social History Tobacco UseTypesPacks/DayYears UsedDateSmoking Tobacco: NeverSmokeless [...] of sexual activity by your partner or ex-partner?11/25/2022Social Connection and Isolation Panel AnswerDate RecordedIn a typical week, how many times do you talk on the phone with family, friends, or neighbors?More than three times a week11/25/2022How often do you get together with friends or relatives?Once a week11/25/2022How often do you attend samaritan or scientology services?Never11/25/2022o you belong to any clubs or organizations such as samaritan groups, unions, fraternal or athletic groups, or school groups?No11/25/2022How often do you attend meetings of the clubs or organizations you belong to?Never11/25/2022re you , , , , never , or living with a partner?Dmdkbnc7411/25/2022 AUDIT-CAnswerDate RecordedQ1: How often do you have [...] hard at all11/25/2022HQ-2 AnswerDate RecordedPatient Health Questionnaire-2 Uimoe159Finencompass health [place] of Occupational Health - Occupational Stress QuestionnaireAnswerDate RecordedDo you feel stress - tense, restless, nervous, or anxious, or unable to sleep at night because yourmind is troubled all the time - these days?Only a kdqnig1211/25/2022Exercise Vital SignAnswerDate RecordedOn average, how many days [...] steady place to sleep or slept in cocoaelter (including now)?No11/25/2022CommentsUnknownSex and Gender InformationValueDate RecordedSex Assigned at BirthNot on fileLegal SexFemale 07/13/2022 7:20 PM EDTGender IdentityNot on fileSexual OrientationNot on file documented as of this encounter Progress Notes * Gladis Laird, RISK INTERN - 03/17/2025 11:37 AM EST Images from the original note were not included. Spoke to pt for monitoring. Pt states she is doing ok. She shares she is still in boot. Pt hopes toget this off at her appt coming up 03/[address] Zepeda. She shares she is doing outpatient PT3 times a week and OT 5 days a week through [facility]. Pt shares they were going to do home health through [facility] but pt would not get as much therapy and she shares [facility] helps her a lot more that [facility]. She shares she liked the nurse, but just was not impressed with the therapy and amount of days she would get. Pt and freelance writer go through medication list and update. Pt statesshe plans on making an appt with PCP in about a month to go over these as well. She has enough medic ation that was [facility] for [facility] bit. Pt talks a bit about and her health and stays at shelter. I actively listen. Denies any further needs or concerns at this time. Encouraged to call if any needs arise. Flowsheet Row Patient Outreach from 03/17/2025 in [facility] with Gladis Laird LPN Week Number Call Week 1 Call Was patient contacted successfully? Yes Have you had any urgent care/ED/Hospital visits since discharge? No Any medication changes since last contact? No Is the patient taking all medications as directed? Yes Have you visited your PCP since discharge? Yes Have you visited your specialist since discharge? No, scheduled [03/31- Dr Zepeda] What is the patient's perception of their health status since discharge? Improving Is the patient/caregiver able to teach back the hierarchy of who to call/visit for symptoms/problems? PCP, Specialist, Home Health nurse, Urgent Care, ED, 911 Yes documented in this encounter Plan of Treatment DateTypeDepartmentCare Team (Latest Contact Info)Rmokyarayue61/05/2026 1:40 PM ESTProcedure Visit [facility] 112 [facility] 120 [place] [address] Alex Tam DPM 3006 [facility] 5 [place] [address] documented as of this encounter Visit Diagnoses Diagnosis Benign essential hypertension- Primary Essential hypertension, benign Paroxysmal supraventricular tachycardia (HCC) Paroxysmal supraventricular tachycardia documented in this encounter Additional Health Concerns AssessmentNoted TimePHQ-9 Depression Total Score: 3:00 PM EST documented as of this encounter Care Teams Team MemberRelationshipSpecialtyStart DateEnd Date Roc Steele MD [address] [facility] 110 [place] [address] PCP - GeneralInternal Medicine09/28/22 Roc Steele MD [address] [facility] 110 [place] [address] PCP - ACO Reach08/30/23 Luis Felipe Dugan DO [address] [place] [address] Referring ZdzhydnidFekqojvpt45/7/24 Gladis Laird LPN [address] [facility] [address] [place] [address] 07/19/24documented as of this encounter
--- OUTSIDE RECORDS SUMMARY | 2025-03-28 10:01 | XMS_ITS | Encounter Summary ---
Author Organization [facility] Address [address] [place] [address] Care Team Providers Care Endbander Name Role Phone Roc Steele MD Primary Care Provider [phone] Roc Steele MD Unavailable [phone] Luis Felipe Dugan DO Unavailable [phone] Gladis Laird LPN Unavailable Encounter Details DateTypeDepartmentCare Team (Latest Contact Info)Qilghlpflwp91/24/2025Patient Outreach [facility] [address] [place] [address] Gladis Laird LPN [address] [place] [address] Social History Tobacco UseTypesPacks/DayYears UsedDateSmoking Tobacco: NeverSmokeless [...] relatives?Once a week11/25/2022How often do you attend jew or anabaptism services?Never11/25/2022o you belong to any clubs or organizations such as jew groups, unions, fraternal or athletic groups, or school groups?No11/25/2022How often do you attend meetings of the clubs or organizations you belong to?Never11/25/2022re you , , , , never , or living with a partner?Hlgfhrx1911/25/2022 AUDIT-CAnswerDate RecordedQ1: How often do you have [...] hard at all11/25/2022HQ-2 AnswerDate RecordedPatient Health Questionnaire-2 Swzzk696Finutah valley hospital [place] of Occupational Health - Occupational Stress QuestionnaireAnswerDate RecordedDo you feel stress - tense, restless, nervous, or anxious, or unable to sleep at night because yourmind is troubled all the time - these days?Only a gonqjx7111/25/2022Exercise Vital SignAnswerDate RecordedOn average, how many days [...] steady place to sleep or slept in detroitelter (including now)?No11/25/2022CommentsUnknownSex and Gender InformationValueDate RecordedSex Assigned at BirthNot on fileLegal SexFemale 07/13/2022 7:20 PM EDTGender IdentityNot on fileSexual OrientationNot on file documented as of this encounter Progress Notes * Gladis Laird, INSPECTOR INSULATION - 03/24/2025 12:35 PM EST Spoke to pt for weekly monitoring. Pt states she is doing well. She shares she has completed OT this morning and PT will be coming this afternoon. Pt shares that her PT/OT has dropped from 5 days a week to 3 days a week. Pt states they tell her she is doing good. Pt shares that her son took her to [facility] the other day and then to the [facility] to see her spouse. Pt states that is the first she hasspouse since 03/07. Pt shares she was glad to see him and talks about the struggles of not being able to see spouse more often. Services Manager actively listens. Pt denies any needs at this time. Encouraged to call if any arise. Flowsheet Row Patient Outreach from 03/24/2025 in [facility] with Gladis Laird LPN Week Number Call Week 2 Call Was patient contacted successfully? Yes Have you had any urgent care/ED/Hospital visits since discharge? No Any medication changes since last contact? No Is the patient taking all medications as directed? Yes Have you visited your PCP since discharge? Yes Have you visited your specialist since discharge? No, scheduled What is the patient's perception of their health status since discharge? Improving Is the patient/caregiver able to teach back the hierarchy of who to call/visit for symptoms/problems? PCP, Specialist, Home Health nurse, Urgent Care, ED, 911 Yes documented in this encounter Plan of Treatment DateTypeDepartmentCare Team (Latest Contact Info)Cfklmirmnbg32/05/2026 1:[address] [facility] [address] [place] [id number] Alex Tam DPM 3006 [facility] 5 [place] [address] documented as of this encounter Visit Diagnoses Diagnosis Benign essential hypertension- Primary Essential hypertension, benign Paroxysmal supraventricular tachycardia (HCC) Paroxysmal supraventricular tachycardia documented in this encounter Additional Health Concerns AssessmentNoted TimePHQ-9 Depression Total Score: 3:00 PM EST documented as of this encounter Care Teams Team MemberRelationshipSpecialtyStart DateEnd Date Roc Steele MD [address] [place] [address] PCP - GeneralInternal Medicine09/28/22 Roc Steele MD [address] [place] [address] PCP - ACO Reach08/30/23 Luis Felipe Dugan DO [address] [place] [address] Referring FvjhludyuUivtxdajw50/7/24 Gladis Laird, LARRY 112 [facility] 110 [place] [address] 07/19/24documented as of this encounter
--- OUTSIDE RECORDS SUMMARY | 2025-03-28 10:01 | XMS_ITS | Encounter Summary ---
Author Organization [facility] Address [address] [place] [address] Care Team Providers Care Mate Chief Name Role Phone Roc Steele MD Primary Care Provider [phone] Roc Steele MD Unavailable [phone] Luis Felipe Dugan DO Unavailable [phone] Gladis Laird LPN Unavailable Reason for Visit * ReasonCommentsMed Refill Encounter Details DateTypeDepartmentCare Team (Latest Contact Info)Yxdunedzdqr36/19/2025Refill [facility] [place] [facility] [address] [place] [phone] Aarti Castillo, DEISY [address] [place] [address] Primary insomnia Social History Tobacco UseTypesPacks/DayYears UsedDateSmoking Tobacco: NeverSmokeless [...] relatives?Once a week11/25/2022How often do you attend episcopal or synagogue services?Never11/25/2022o you belong to any clubs or organizations such as episcopal groups, unions, fraCompumatrix or athletic groups, or school groups?No11/25/2022How often do you attend meetings of the clubs or organizations you belong to?Never11/25/2022re you , , , , never , or living with a partner?Ndkfyek8811/25/2022 AUDIT-CAnswerDate RecordedQ1: How often do you have [...] hard at all11/25/2022HQ-2 AnswerDate RecordedPatient Health Questionnaire-2 Skhmj748[facility] [place] of Occupational Health - Occupational Stress QuestionnaireAnswerDate RecordedDo you feel stress - tense, restless, nervous, or anxious, or unable to sleep at night because yourmind is troubled all the time - these days?Only a yykuoo0511/25/2022Exercise Vital SignAnswerDate RecordedOn average, how many days [...] Plan of Treatment DateTypeDepartmentCare Team (Latest Contact Info)Wojwvwjezuf52/05/2026 1:40 PM ESTProcedure Visit [facility] [address] [facility] [address] [place] [address] Alex Tam, DPRen [address] [facility] [address] [place] [address] documented as of this encounter Visit Diagnoses Diagnosis Primary insomnia Persistent disorder of initiating or maintaining sleep documented in this encounter Additional Health Concerns AssessmentNoted TimePHQ-9 Depression Total Score: 3:00 PM EST documented as of this encounter Care Teams Team MemberRelationshipSpecialtyStart DateEnd Date Roc Steele MD [address] [facility] [address] [place] [address] PCP - GeneralInternal Medicine09/28/22 Roc Steele MD [address] [facility] [address] [place] [address] PCP - ACO Reach08/30/23 Luis Felipe Dugan DO [address] [place] [address] Referring TfoeqybhgMebpzdqne97/7/24 Gladis Laird LPN [address] [facility] [place] [address] 07/19/24documented as of this encounter
--- OUTSIDE RECORDS SUMMARY | 2025-03-28 10:01 | XMS_ITS | Patient Health Record ---
Author Organization [facility] Address [address] [facility] [address], [place] [address] Care Team Providers Care Human Resources Specialist Name Role Phone Kaden Zepeda Unavailable [phone] Allergies Allergen (clinical drug ingredient) Drug/Non Drug Allergy documented on EMR Reaction Allergy Type Onset Date Status moxifloxacin avelox (uncoded) Unknown Allergy ActiveciprofloxacinCiprofloxacinUnknownDrug AllergyActiveclarithromycin ClarithromycinUnknownDrug AllergyActivemoxifloxacinMoxifloxacinUnknownDrug AllergyActiveSubstance with sulfonamide structure and antibacterial mechanism of action (substance)Sulfa AntibioticsUnknownDrug AllergyActive Reason For Referral No Information Medications Medication SIG (Take, Route, Frequency, Duration) Notes Start Date End Date Status Fexofenadine HCl 180 MG Tablet 1 tablet Swallow whole with water; do not take with fruit juices. Orally Once a day ActiveAcetaminophen 325 MG Tablet1 tablet as needed Orally every 6 hrsActive Meloxicam 7.5 MG Tablet1 tablet Orally Once a dayActiveZolpidem Tartrate 10 MG TabletOral; Duration: 90 DaysActivePercocet 5-325 MG Tablet1 tablet as needed Orally every 6 hrsActivetiZANidine HCl 4 MG TabletOral; Duration: 90 DaysActive Sennosides-Docusate Sodium 8.6-50 MG Tablet1 tablet as needed Orally Twice a day ActiveMetoprolol Succinate ER 50 MG Tablet Extended Release 24 HourOral; Duration: 90 DaysActiveXanax 0.25 MG Tablet1 tablet Orally Twice a dayActive Metoprolol Succinate ER 100 MG Tablet Extended Release 24 HourOral; Duration: 90 DaysActiveIsosorbide Mononitrate ER 30 MG Tablet Extended Release 24 HourOral; Duration: 90 DaysActiveGabapentin 300 MG CapsuleOral; Duration: 90 DaysActive Simvastatin 10 MG Tablet2 tablets in the evening Orally Once a dayActive Magnesium Oxide 400 MG Tablet1 tablet with food Orally Once a dayActiveVitamin J1Konbuk Social History Section Notes: Patient is a nonsmoker. No alcohol use. Patient is a nonsmoker. No alcohol use. Patient is a nonsmoker. No alcohol use. Encounters Encounter Location Date Provider Diagnosis [address] [address], [place] [address] 01/10/2025 Kaden Zepeda Closed bimalleolar fracture of left ankle, initial encounter S82.842A and Syndesmotic disruption of left ankle, initial encounter S93.432A [address] [address], [place] [address] 01/24/2025 Kaden Zepeda Closed displaced bimalleolar fracture of left ankle, initial encounter S82.842A ; Syndesmotic disruption of left ankle, initial encounter S93.432A and Closed displaced fracture of medial malleolus of left tibia, initial encounter S82.52XA [address] [address], [place] [address] 02/17/2025 Kaden Zepeda Closed displaced bimalleolar fracture of left ankle, initial encounter S82.842A ; Closed displaced fracture of medial malleolus of left tibia, initial encounter S82.52XA and Syndesmotic disruption of left ankle, initial encounter S93.432A Assessments Encounter Date Diagnosis (ICD Code) Assessment Notes Treatment Notes Treatment Clinical Notes Section Notes 01/24/2025 Closed displaced bim alleolar fracture of left ankle, initial encounter (ICD-10 - S82.842A) Splint was removed and incisions are healed so sutures and delfin were removed. She was placed into a CAM boot and may progress to 50% weight bearing with a walker and with monitoring with PT. She may remove the boot for active ROM which can be done against resistance. No passive ROM. She should ice and elevate daily. Ice should be applied for no more than 15 min. She may remove boot when resting in bed or in chair. She may wash her leg/ankle normally but no soaking or submerging under water. No bandages are needed. No GENOVEVA wraps given her fragile skin. Continue pain medicine as order and as needed. F/u in 4 weeks with xrays. 01/24/2025Syndesmotic disruption of left ankle, initial encounter (ICD-10 - S93.432A)02/17/2025losed displaced fracture of medial malleolus of left tibia, initial encounter (ICD-10 - S82.52XA)02/17/2025losed displaced bimalleolar fracture of left ankle, initial encounter (ICD-10 - S82.842A) Patient is doing well. Xrays show stable fixation and healed fibular malleolus fracture. Mortise isreduced. Medial malleolus with interval bone healing. No change in alignment. Patient may progress to WBAT in CAM boot. I anticipate she will require ~1 [facility] at [facility] to ensure she is safe and stable prior to returning home. She can use cane or walker for stability. She should remove boot when seated to perform ROM and strengthening exercise. She may sleep without the boot. She can drive as long as not taking any pain medicine. She is to f/u with me in 6 weeks and should remain in boot when bearing weight. Xrays to be obtained prior to f/u 01/10/2025Syndesmotic disruption of left ankle, initial encounter (ICD-10 - S93.432A)01/10/2025losed bimalleolar fracture of left ankle, initial encounter (ICD-10 - S82.842A) Splint was removed and incision are healing well. A new well padded short leg splint was applied. She is to remain non ambulatory and may place partial weight to the left heel for balance/transfers only if needed. Keep splint clean, dry and intact. - prescription for a CAM boot was provided which she (or ) will need to pickling tank operator from medicalsupply provider prior to next appointment - xray order sent to [facility] which she is to obtain prior to f/u appointment - Follow up in 2 weeks for xray review 01/24/2025losed displaced fracture of medial malleolus of left tibia, initial encounter (ICD-10 - S82.52XA)02/17/2025Syndesmotic disruption of left ankle, initial encounter (ICD-10 - S93.432A) Plan Of Treatment Next Appt Details Provider Name:Kaden garrido, 03/31/2025 11:00:00 AM, [address] [facility], [address], [address], [place], [address], Insurance Providers Payer Name Payer Address Payer Phone Subscriber Number Group Number Insured Name Patient Relationship to Insured Coverage Start Date Coverage End Date Medicare of [place] J[address] [place], [place] [address] [phone] [id number] Eva Walker - patient is the insuredAlleghany Health[employer] Insurance Re.Mu Medicare SupplementPO [address] [address] [place], [place] [id number], BonnieSelf - patient is the insured Medical (General) History Medical History History ICD Code Glaucoma Heart DiseaseHypertensionOsteopeniaInsomniaSurgical History Surgery Date(Month/Year) Total Left Hip ORIF Ankle RightLeft ShoulderBilateral Knee ReplacementsORIF Ankle Ebbw7207
--- OUTSIDE RECORDS SUMMARY | 2025-03-28 10:01 | XMS_ITS | Clinical Summary ---
Author Organization [facility] Address [address] [place] [address] Phone Care Team Providers Care Endo Tech Name Role Phone Roc Steele MD Primary Care Provider [phone] Allergies Active AllergyReactionsCriticalityNoted DateCommentsMoxifloxacinAngioedema 07/15/20248525YanydcefmscwfEvoicsi41/17/2025Sulfa (Sulfonamide Antibiotics)Unknown 07/15/2024 Medications MedicationSigDispense QuantityRefillsLast FilledStart DateEnd DateStatus HYDROcodone-acetaminophen ([place]) 5-325 mg tablet Take 1 tablet by mouth every 4 hours if needed for severe pain (7 - 10). 04/03/2024ctive pantoprazole (ProtoNix) 40 mg EC tablet Take 1 tablet (40 mg) by mouth once daily.08/08/2023ctive nortriptyline (Pamelor) 10 mg capsule Take 3 capsules (30 mg) by mouth.10/26/2023ctive zolpidem (Ambien) 10 mg tablet Take 1 tablet (10 mg) by mouth once daily at bedtime.07/03/2024tive tiZANidine (Zanaflex) 4 mg tablet Take 1 tablet (4 mg) by mouth 3 times a day.04/16/2024ctive meloxicam (Mobic) 15 mg tablet Take 1 tablet (15 mg) by mouth once daily.Active ALPRAZolam (Xanax) 0.25 mg tablet Take 1 tablet (0.25 mg) by mouth as needed at bedtime for anxiety.Active gepmqmapfhrq-Cp-ztsn-minerals tablet Take 1 tablet by mouth once daily.Active Prolia 60 mg/mL syringe Inject 1 mL (60 mg total) under the skin every 6 months.5Active gabapentin (Neurontin) 300 mg capsule Take 1 capsule (300 mg) by mouth twice a day.12/01/2022ctive fexofenadine (Radha) 180 mg tablet Take 1 tablet (180 mg) by mouth once daily as needed./ctive calcium citrate-vitamin D3 (Citracal + D Maximum) 315 mg-6.25 mcg (250 unit) tablet Take 1 tablet (315 mg) by mouth once daily.Active metoprolol succinate XL (Toprol-XL) 50 mg 24 hr tablet Indications:PalpitationsTake 1 tablet (50 mg) by mouth once daily in the morning. 90 tablet ctive simvastatin (Zocor) 10 mg tablet Indications:Mixed hyperlipidemiaTake 1 tablet (10 mg) by mouth once daily at bedtime. 90 tablet ctive metoprolol succinate XL (Toprol XL) 100 mg 24 hr tablet Indications:PalpitationsTake 1 tablet (100 mg) by mouth once daily at bedtime. Do not crush or chew. 90 tablet ctive isosorbide mononitrate ER (Imdur) 30 mg 24 hr tablet Indications:Chest discomfortTake 1 tablet (30 mg) by mouth once daily at bedtime. Do not crush or chew. 90 tablet ctive magnesium oxide (Mag-Ox) 400 mg (241.3 mg elemental) tablet Indications:PalpitationsTake 1 tablet by mouth 2 times a day. 180 tablet ctive Active Problems ProblemNoted DateDiagnosed DateOSA on CPAP2024t high risk for falls 07/15/2024Uses roller hdvbdc2807/15/2024Encounter to discuss test results 07/15/2024Never smoked kvjdtblfac88/17/2025ody mass index (BMI) 40.0-44.9, adult07/15/2024Primary yjzyszkrxnys12/17/2025arotid /17/2025 Paroxysmal supraventricular tgqhneifouo27/17/9839Dgrkpncppgqb63/17/2025 Gastroesophageal reflux disease without rgtfxiosrlx77/17/2025Mixed samnsxsjjfzryb76/17/2025CKD (chronic kidney disease)5Abnormal EKG 5Chest /17/7822Iwbqfhzocforxxm29/17/2025 Family History Medical HistoryRelationNameCommentsBrain AneurysmBrotherAortic aneurysmFather Heart failureMotherHeart failureSisterRelationNameStatusCommentsBrotherFather MotherSister Social History Tobacco UseTypesPacks/DayYears UsedDateSmoking Tobacco: NeverSmokeless Tobacco: Never Tobacco Cessation:Counseling Given: Not Answered Alcohol UseStandard Drinks/WeekCommentsNot Currently0 (1 standard drink = 0.6 oz pure alcohol)CommentsUnknownSex and Gender InformationValueDate Recorded Sex Assigned at BirthNot on fileLegal PuiIklzrm22/26/2022 7:23 PM ESTGender IdentityNot on fileSexual OrientationNot on file Last Filed Vital Signs Vital SignReadingTime TakenCommentsBlood Srzoiaje564/90011/15/2024 3:00 PM EDT Xvdcp2169/18/2025 2:11 PM EDTTemperature--Respiratory Rate--Oxygen Saturation-- Inhaled Oxygen Concentration--Zhkghs313 kg (262 lb)2024 2:11 PM EDTHeight 162.6 cm (5' 4 )2024 2:11 PM EDTBody Mass Index44.9711/15/2024 2:11 PM EDT Plan of Treatment DateTypeDepartmentCare Team (Latest Contact Info)Vtacsmpgojt20/29/2025 1:00 PM ESTAncillary Procedure [address] [address] 05/16/2025 2:00 PM ESTOffice Visit [address] [phone] Rc Kern MD [address] [facility] [address] [place], [place] [address] Health MaintenanceDue DateLast DoneCommentsHepatitis C Pmmutmuft81/18/1965CKD: Urine Protein Yoyiujoct35/18/1966DTaP/Tdap/Td Vaccines (1 - Tdap)1968 Creatinine Level, 01/20/2020Diabetes Otpkfdpyf61/01/2021 01/30/2020, 01/20/2020Potassium Level, 01/20/2020RSV High Risk: (Elderly (60+) or Population) (1 - 1-dose 75+ series)2021 Medicare Annual Wellness Visit (AWV)/10/2023, 06/29/2022, 10/14/2020, Additional history existsInfluenza Vaccine (#1)/08/2023, 03/01/2023, 03/23/2022, Additional history existsCOVID-19 Vaccine ( season)/12/2023, 03/31/20222986Uaiqhixmxvokmp72/21/515875/5Bone Density Scan, 07/26/2024, 10/21/2020, Additional history existsLipid Panel0548KzohcjrhcqvWxqklljrenfm21/03/2013Colorectal Cancer ScreeningDiscontinuedPneumococcal GwjuypsHhmxrjjht46/10/2015, 12/11/2013 Zoster HneotgzlSjssyrlav05/28/2020, 05/16/2019, 01/17/2012CT Colonography DiscontinuedFIT-DNA (Cologuard)DiscontinuedFITDiscontinuedHIB VaccinesAged OutNo longer eligible based on patient's age to complete this topicHPV VaccinesAged OutNo longer eligible based on patient's age to complete this topicHepatitis A VaccinesAged OutNo longer eligible based on patient's age to complete this topic Hepatitis B VaccinesAged OutNo longer eligible based on patient's age to complete this topicIPV VaccinesAged OutNo longer eligible based on patient's age to complete this topicMeningococcal VaccineAged OutNo longer eligible based on patient's age to complete this topicRotavirus VaccinesAged OutNo longer eligible based on patient's age to complete this topicSigmoidoscopyDiscontinued Medical Devices ImplantedTypeAreaManufacturerDevice IdentifierShelf Expiration DateModel / Serial / LotScrew, Low Profile Hex, 6.5 X 15 Mm Case [id number] Implanted:Qty: 1 on 01/29/2020 by Micah Bird MDImplantRight: [id number] / / 5MMDescription:Converted from Care Acute. Please see archived information for full log information.Screw, Low Profile Hex, 6.5 X 25 Mm Case [id number] Implanted:Qty: 1 on 01/29/2020 by Micah Bird MDImplantRight: [id number] / / 2RGEDescription:Converted from [facility] Acute. Please see archived information for full log information.Head, Femur V40 36mm +2.5mm Biolox Delta Case [id number] Implanted:Qty: 1 on 01/29/2020 by Micah Bird MDJointRight: [id number] / / [id number]:Converted from Care Acute. Please see archived information for full log information.Stem, Femur 132d Sz 5 Accolade Ii Case [id number] Implanted:Qty: 1 on 01/29/2020 by Micah Bird MDJointRight: [id number] / / [id number]:Converted from Care Acute. Please see archived information for full log information.Shell, Trident Ii, Clusterhole, [place] 52e Case [id number] Implanted:Qty: 1 on 01/29/2020 by Micah Bird MDJointRight: [id number] / / [id number]:Converted from Care Acute. Please see archived information for full log information.Liners, Poly 36 X 10 D Trid Crossfire E Case [id number] Implanted:Qty: 1 on 01/29/2020 by Micah Bird MDJointRight: [id number] / / [id number]:Converted from [facility] Care Acute. Please see archived information for full log information. Procedures Procedure NamePriorityDate/TimeAssociated DiagnosisCommentsTRANSTHORACIC ECHO (TTE) LFRAESRJKdporsm05/21/2025 11:39 AM EDT Paroxysmal supraventricular tachycardia Abnormal EKG Palpitations BASIC METABOLIC DGXOONijcesw12/01/2020 5:25 AM EDT from Last 3 Months or Most Recently Relevant to Health Maintenance Results * TRANSTHORACIC ECHO (TTE) COMPLETE (09/18/2024 11:39 AM EDT)ComponentValueRef RangeTest MethodAnalysis TimePerformed AtPathologist SignatureAV mn tttr3loUy SYNGOAV pk vel1.81m/sSYNGOLV Biplane EF36%SYNGOLVOT diam2.27cmSYNGOMV E/A ratio0.79SYNGOMV avg E/e' ratio26.81SYNGOLA vol index A/L44.1ml/j6XQLCMZM EF63 %SYNGORV free wall pk S'15.98cm/sSYNGOLVIDd4.66cmSYNGOAortic Valve Area by Continuity of Peak Velocity2.61wr7XVELYRA pk jvmp53twXlLJNTRLsmcwn Valve Area by Continuity of VTI1.84uq5MWOIKMD A4C EF42.7SYNGOSpecimen (Source)Anatomical Location / LateralityCollection Method / VolumeCollection TimeReceived Time 09/18/2024 10:19 AM EDT Narrative SYNGO - 09/18/2024 6:10 PM EDT ?[address], [address] [facility], [place] [address] ? TRANSTHORACIC ECHOCARDIOGRAM REPORT Patient Name: ? USHA WALKER ? Reading Physician: ?[id number] David ?IbrahimMD, FACC Study Date: ? 09/18/2024 ? Ordering Provider: ?[id number] RC ?KERN MRN/PID: ?[id number] ?Fellow: Accession#: ? [id number] ?Nurse: Date of /Age: ??1945 / 78 ?Therapeutic Program Worker: ?Viry Quigley ?years ? RDCS, RVT Gender Assigned at ??F ? Additional Staff: : Height: ? 162.56 cm ? Admit Date: Weight: ? 122.02 kg ? Admission Status: ? Outpatient BSA / BMI: ?2.22 m2 / 46.17 ? Department Location: ??[facility] ?kg/m2 ? Marianne Blood Pressure: 124 /86 mmHg Study Type: ?TRANSTHORACIC ECHO (TTE) COMPLETE Diagnosis/ICD: Supraventricular tachycardia-I47.1; Abnormal electrocardiogram ? [ECG] [EKG]-R94.31; Palpitations-R00.2 Indication: ?Edema, HTN, Hyperlipidemia, Carotid Stenosis, CARO, CKD-Stage III, ? Morbid Obesity CPT Codes: ? Echo Complete w Full Doppler-03201 Study Detail: The following Echo studies were performed: 2D, M-Mode, Doppler and ?color flow. PHYSICIAN INTERPRETATION: Left Ventricle: Left ventricular [...] for comparison. QUANTITATIVE DATA SUMMARY: 2D MEASUREMENTS: ? Normal Ranges: Ao Root s: ? 2.40 cm LAs: ? 4.58 cm ? (2.7-4.0cm) RVIDd: ? 2.98 cm ? (0.9-3.6cm) IVSd: ?1.51 cm ? (0.6-1.1cm) LVPWd: ? 1.46 cm ? (0.6-1.1cm) LVIDd: ? 4.66 cm ? (3.9-5.9cm) LVIDs: ? 3.41 cm LV Mass Index: ?? 128.7 g/m2 LVEDV Index: ? 35.74 ml/m2 LV % FS ?26.8 % LEFT ATRIUM: ? Normal Ranges: LA Vol A4C: ? 94.9 ml ?(22+/-6mL/m2) LA Vol A2C: ? 100.3 ml LA Vol BP: ?97.8 ml LA Vol Index A4C: 42.8ml/m2 LA Vol Index A2C: 45.2 ml/m2 LA Vol Index BP: ??44.1 ml/m2 LA Vol A4C: ? 90.1 ml LA Vol A2C: ? 95.3 ml LA Vol Index BSA: 41.8 ml/m2 LV SYSTOLIC FUNCTION: ? Normal Ranges: EF-A4C View: 43 % (>=55%) EF-A2C View: ?34 % EF-Biplane: ? 36 % EF-Visual: ?63 % LV EF Reported: 63 % LV DIASTOLIC FUNCTION: ? Normal Ranges: MV Peak E: ? 1.03 m/s ??(0.7-1.2 m/s) MV Peak A: ? 1.31 m/s ??(0.42-0.7 m/s) E/A Ratio: ? 0.79 ?(1.0-2.2) MV e' 0.038 m/s (>8.0) MV lateral e' ?0.04 m/s MV medial e' ? 0.03 m/s E/e' Ratio: 26.81 (<8.0) MITRAL VALVE: ?Normal Ranges: MV Vmax: 1.32 m/s (<=1.3m/s) MV peak P.0 mmHg (<5mmHg) MV mean P.4 mmHg (<48mmHg) MV VTI: ? 34.50 cm (10-13cm) MV DT: ?197 msec (150-240msec) MITRAL INSUFFICIENCY: ? Normal Ranges: MR Vmax: ?535.23 cm/s dP/dt: 1088 mmHg/s (>1200mmHg/sec) AORTIC VALVE: ?Normal Ranges: AoV Vmax: 1.81 m/s (<=1.7m/s) AoV Peak P.1 mmHg (<20mmHg) AoV Mean PG: ? 6.6 mmHg ??(1.7-11.5mmHg) LVOT Max Twan: 1.19 m/s (<=1.1m/s) AoV VTI: ? 48.18 cm ??(18-25cm) LVOT VTI: ?22.96 cm LVOT Diameter: ? 2.27 cm ?? (1.8-2.4cm) AoV Area, VTI: ? 1.93 cm2 ??(2.5-5.5cm2) AoV Area,Vmax: ? 2.65 cm2 ??(2.5-4.5cm2) AoV Dimensionless Index: 0.48 AORTIC INSUFFICIENCY: AI Vmax: ? 3.51 m/s AI Half-time: ??301 msec AI Decel Time: 1037 msec AI Decel Rate: 338.04 cm/s2 RIGHT VENTRICLE: RV Basal 2.74 cm RV Mid ?? 2.20 cm RV Major 4.9 cm RV s' ?0.16 m/s PULMONIC VALVE: ?Normal Ranges: RVOT Vmax: ?0.68 m/s (0.6-0.9m/s) AORTA: Asc Ao Diam 2.66 cm [id number] David Castle MD, [facility] Electronically signed on 09/18/2024 at 6:10:05 PM Final Procedure Note David Castle MD - 09/18/[address], [address] [place] [address] TRANSTHORACIC ECHOCARDIOGRAM REPORT Patient Name: USHA Deal Physician: [id number] Castle MD,[facility] Study Date: 09/18/2024 Ordering Provider: [id number] KERN MRN/PID: [id number] Fellow: Nurse: Date of /Age: 8 1945 / Therapeutic Program Worker: David ely RDCS, RVT Gender Assigned at F Additional Staff: : Height: 162.56 cm Admit Date: Weight: 122.02 kg Admission Status: Outpatient BSA / BMI: 2.22 m2 / 46.17 Department Location: [facility] kg/m2 [place] Blood Pressure: 124 /86 mmHg Study Type: TRANSTHORACIC ECHO (TTE) COMPLETE Diagnosis/ICD: Supraventricular tachycardia-I47.1; Abnormalelectrocardiogram [ECG] [EKG]-R94.31; Palpitations-R00.2 Indication: Edema, HTN, Hyperlipidemia, Carotid Stenosis, CARO,CKD-Stage III, Morbid Obesity CPT Codes: Echo Complete w Full Doppler-43431 Study Detail: The following Echo studies were [...] (0.6-0.9m/s) AORTA: Asc Ao Diam 2.66 cm [id number] David Castle MD, FACC Electronically signed on 09/18/2024 at 6:10:05 PM Final Authorizing ProviderResult TypeResult StatusGecraig Kern [facility] ECHO PROCEDURES Final ResultPerforming OrganizationAddressCity/State/ZIP CodePhone Number SYNGO * (ABNORMAL) Basic Metabolic Panel (01/30/2020 5:25 AM EDT)ComponentValueRef RangeTest MethodAnalysis TimePerformed AtPathologist NimhozxnjEidcfgi616(H)74 - 99 mg/dLCEDARS [facility] DGQVfzser238972 - 145 mmol/[facility] LABPotassium4.23.5 - 5.3 mmol/[facility] FNPVgazvsql99853 - 107 mmol/[facility] LDZLonnffuluqq4377 - 32 mmol/[facility] LABAnion Gap8(L)10 - 20 mmol/[facility] LABUrea Isxencyi271 - 23 mg/dLCEDARS MEDICAL CENTER LABCreatinine1.000.50 - 1.05 mg/dLCEDARS MEDICAL CENTER LABGLOMERULAR FILTRATION RATE-NON RMYPYRTL30(A)>60 mL/min/1.71l1NBJDQQCEDARS MEDICAL CENTER LABGLOMERULAR FILTRATION RATE- UVEGWJJT02>60 mL/min/1.06f1ZYNLTRCEDARS MEDICAL CENTER LABComment: CALCULATIONS OF ESTIMATED GFR ARE PERFORMED USING THE MDRD STUDY EQUATION FOR THE IDMS-TRACEABLE CREATININE METHODS. CLIN CHEM 2007;53:766-72 Calcium8.88.6 - 10.3 mg/dLCEDARS MEDICAL CENTER LABSpecimen (Source)Anatomical Location / LateralityCollection Method / VolumeCollection TimeReceived Time 01/30/2020 5:25 AM EDT1 6:26 AM EDT Narrative Authorizing ProviderResult TypeResult StatusMatthew Nolberto Bird MDLAB BLOOD ORDERABLESFinal ResultPerforming OrganizationAddressCity/State/ZIP CodePhone Number [facility] LAB from Last 3 Months or Most Recently Relevant to Health [place] [address] Care Teams Team MemberRelationshipSpecialtyStart DateEnd oRc Steele MD [address] [facility] [address] [place] [address] [facility]10/04/22
--- OUTSIDE RECORDS SUMMARY | 2025-03-28 10:01 | XMS_ITS | Clinical Summary ---
Author Organization [facility] Address [address] [place] [address] Care Team Providers Care Network Firewall Engineer Name Role Phone Roc Steele MD Primary Care Provider [phone] Roc Steele MD Unavailable [phone] Luis Felipe Dugan DO Unavailable [phone] Gladis Laird LPN Unavailable Allergies Active AllergyReactionsCriticalityNoted ImugMfjistkcPilcafkukbags93/02/2023 Other Reaction(s): Unknown Dbmzvxogjdfdxm43/02/2023 Other Reaction(s): Unknown NcvksnuajapzWhgavswxylrCyru83/02/2023 Other Reaction(s): Tongue Swelling ; Trouble Breathing Dslxgoxpugvvl52/02/2023 Other Reaction(s): Unkown Medications MedicationSigDispense QuantityRefillsLast FilledStart DateEnd DateStatus Multiple Vitamin (Multi Vitamin) tablet 1 (one) time each day at the same time.Active Calcium Carb-Cholecalciferol 600-20 MG-MCG chewable tablet calcium carb 600 mg(1,500 mg)-vit D3 400 unit-minerals chewable tablet Take by oral route.Active furosemide (Lasix) 20 MG tablet Indications:Cardiomegaly,Chronic congestive heart failure, unspecified heart failure type (HCC)Take 1 tablet (20 mg) by mouth Daily 90 tablet 303/030249/6Active Additional Information Patient taking differently:20 mg OralAs needed, Reported on 03/17/2025 fexofenadine (Radha) 180 MG tablet Indications:Seasonal allergic rhinitis, unspecified triggerTake 1 tablet (180 mg) by mouth Daily as needed (alleriges) 90 tablet 304504/6Active pantoprazole (ProtoNix) 40 MG EC tablet Indications:Gastroesophageal reflux disease with esophagitis without hemorrhage TAKE 1 TABLET BY MOUTH ONCE DAILY 90 tablet 5Active gabapentin (Neurontin) 300 MG capsule Indications:Acute low back pain without sciatica, unspecified back pain lateralityTake 1 capsule (300 mg) by mouth in the morning and 1 capsule (300 mg) before bedtime. 200 capsule 5Active tiZANidine (Zanaflex) 4 MG tablet Indications:Primary insomniaTAKE 1 TABLET BY MOUTH EVERY 8 HOURS NEEDED 270 tablet 5Active simvastatin (Zocor) 10 MG tablet Indications:Hyperlipidemia, unspecified hyperlipidemia typeTAKE 1 TABLET BY MOUTH ONCE DAILY 90 tablet 5Active Prolia 60 MG/ML solution prefilled syringe Indications:Age-related osteoporosis without current pathological fractureINJECT 60MG SUBCUTANEOUSLY ONCE DIRECTED 1 mL 5Active Additional Information Patient not taking.Reason: Cost, Reported on 03/17/2025 calcium citrate 315 mg + D2 6.25 mcg tablet Take 315 mg by mouth in the morning.Active escitalopram (Lexapro) 10 MG tablet Take 10 mg by mouth Daily5Active hydrALAZINE (Apresoline) 25 MG tablet Take 25 mg by mouth in the morning and 25 mg before bedtime.5Active magnesium oxide (Mag-Ox) 400 MG tablet Take 400 mg by mouth Daily5Active meloxicam (Mobic) 7.5 MG tablet Take 7.5 mg by mouth Daily5Active metoprolol succinate XL (Toprol-XL) 100 MG 24 hr tablet Take 100 mg by mouth in the morning and 100 mg before bedtime.5Active HYDROcodone-acetaminophen (Keene) 5-325 MG tablet Indications:Lumbosacral spondylosis without myelopathyTake 1 tablet by mouth every 4 (four) hours if needed for moderate pain or severe pain 180 tablet 5Active ALPRAZolam (Xanax) 0.25 MG tablet Indications:AnxietyTake 1 tablet (0.25 mg) by mouth 2 (two) times a day as needed for anxiety 60 tablet 5Active isosorbide mononitrate ER (Imdur) 30 MG 24 hr tablet Oral; Duration: 90 Days5Active zolpidem (Ambien) 10 MG tablet Indications:Primary insomniaTAKE 1 TABLET BY MOUTH AT BEDTIME 90 tablet 5Active ALPRAZolam (Xanax) 0.25 MG tablet Indications:AnxietyTake 1 tablet (0.25 mg) by mouth 2 (two) times a day as needed for anxiety 60 tablet Discontinued(Reorder) albuterol HFA (Ventolin HFA) 90 mcg/act inhaler Indications:SOB (shortness of breath),Chronic coughInhale 2 puffs every 4 (four) hours if needed for wheezing or shortness of breath (cough) 54 g Discontinued(Other) zolpidem (Ambien) 10 MG tablet Indications:Primary insomniaTAKE 1 TABLET BY MOUTH AT BEDTIME 90 tablet Discontinued meloxicam (Mobic) 15 MG tablet Indications:Primary osteoarthritis involving multiple jointsTAKE 1 TABLET BY MOUTH ONCE DAILY 90 tablet Discontinued(Other) metoprolol succinate XL (Toprol-XL) 50 MG 24 hr tablet Indications:Benign essential hypertensionTAKE 1 TABLET BY MOUTH IN THE MORNING AND 1 TABLET BY MOUTH BEFORE BEDTIME 180 tablet Discontinued(Therapy completed) nortriptyline (Pamelor) 10 MG capsule Indications:Primary insomnia,AnxietyTAKE 3 CAPSULES BY MOUTH AT BEDTIME ONCE DAILY 270 capsule Discontinued(Therapy completed) HYDROcodone-acetaminophen (Keene) 5-325 MG tablet Indications:Lumbosacral spondylosis without myelopathyTake 1 tablet by mouth every 4 (four) hours if needed for moderate pain or severe pain 180 tablet Discontinued(Reorder) Active Problems ProblemNoted DateDiagnosed DateToe pain, right06/15/2023llergic rhinitis 09/30/20228149Ikvbxla61/02/2023Benign essential vtqpgpynvvom84/02/2023reast whgbidxs70/02/3054Zwpfkmaxsulw31/02/2023hronic cough09/30/2022ecreased estrogen level09/30/2022ifficulty vitlrzt6209/30/2022iverticulosis of colon 09/30/20224721Wrfwx66/02/2023resence of other bone and tendon /02/2023 Gastroesophageal reflux ngqmzub0509/30/20225030Kljmzlpgffbzao69/02/2023IGT (impaired glucose tolerance)09/30/20220051Vntaxkov20/02/2023Exudative age-related macular degeneration of left eye with active choroidal wdefhojypzfjfhtuph56/02/2023 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 09/30/2022Internal derangement of right murhkybh54/02/2023Loss of smell 09/30/2022Loss of taste09/30/2022Low back pain09/30/2022Lumbosacral spondylosis without dlhvuryekj95/02/2023Morbid obesity due to excess dkymqomi81/02/2023 Obstructive sleep apnea09/30/2022Occlusion of carotid artery without cerebral tvztyytqcg42/02/2023egenerative joint disease involving multiple joints 09/30/20229523Ahoglmfekqhoqp05/02/1871Xuvvsyvfcv70/02/2023aroxysmal supraventricular sknvkjpwarq08/02/2023rimary osteoarthritis of right hip 09/30/2022Recurrent falls09/30/2022Vitamin D perlhegnzx19/02/2023 Encounters DateTypeDepartmentCare MaboJvqnrnjhdlc10/26/2025Orders Only [facility] [address] [place] [phone] Aarti Castillo NP Wwdvzaw3603/24/2025[facility] [address] [place] [address] Gladis Laird LPN 03/19/2025Refill [facility] [address] [place] [phone] Aarti Castillo DIE BAKER Primary dfheahkg20/17/2025Patient Outreach [facility] [address] [place] [address] Gladis Laird LPN 03/13/2025 2:40 PM ESTProcedure Visit [facility] [address] [place] [phone] Alex Tam, DPM Pain due to onychomycosis of toenails of both feet (Primary Dx)03/13/2025 1:30 PM ESTOffice Visit [facility] [address] [place] [phone] Aarti Castillo, DEISY Closed fracture of left ankle, sequela (Primary Dx); Anxiety; Lumbosacral spondylosis without riymborzub36/13/2025amboo flowsheet [facility] [address] [place] [phone] Aarti Castillo NP 03/13/20250657Butnso14/10/2025Patient Outreach [facility] [address] [place] [address] Doris Longo, VACUUM PAN OPERATOR 03/07/2025Patient Outreach [facility] [address] [place] [address] Doris Longo, VACUUM PAN OPERATOR 02/28/2025Patient Outreach [facility] [address] [place] [address] Doris Longo, VACUUM PAN OPERATOR 02/24/2025Patient Outreach [facility] [address] [place] [address] Doris Longo, VACUUM PAN OPERATOR 02/18/2025Patient Outreach [facility] [address] [place] [address] Gladis Laird LPN 02/17/2025linisync Result Encounter [facility] External Department Unsolicited Provider, Generic External Data 02/13/2025Patient Outreach [facility] [address] [place] [address] Doris Longo, VACUUM PAN OPERATOR 02/03/2025Patient Outreach [facility] [address] [place] [address] Doris Longo, VACUUM PAN OPERATOR 01/27/2025Patient Outreach [facility] [address] [place] [address] Doris Longo, VACUUM PAN OPERATOR 01/23/2025linisync Result Encounter [facility] External Department Unsolicited Provider, Generic External Data 01/15/2025Patient Outreach [facility] [address] [place] [address] Doris Longo, VACUUM PAN OPERATOR 01/14/2025Refill [facility] [address] [place] [phone] Aarti Castillo, DEISY Age-related osteoporosis without current pathological zuqlfmpt33/10/2025Patient Outreach [facility] [address] [place] [address] Doris Longo, VACUUM PAN OPERATOR 01/01/2025[facility] [address] [place] [address] Doris Longo, VACUUM PAN OPERATOR 5Abstract [facility] [address] [place] [phone] Roc Setele MD from Last 3 Months Immunizations ImmunizationAdministration DatesNext DueInfluenza, High Dose Seasonal, Preservative Free01/31/2018,01/25/2017Influenza, High-dose Seasonal, Quadrivalent, Preservative Free03/05/2024,03/01/2023,03/23/2022Influenza, Seasonal, Quadrivalent, Adkjdyudre96/30/2021Influenza, injectable, quadrivalent 02/02/2016Influenza, injectable, quadrivalent, preservative free01/30/2020 Influenza, seasonal, intradermal, preservative free01/30/2015,02/07/2014Moderna Bivalent Booster Dxrrrzjkxqn86/01/2022Pneumococcal Conjugate PCV 131 Pneumococcal Polysaccharide HMUY2617Zoster, Evopkndydal07/28/2020, 05/16/2019Zoster, live01/17/2012 Family History Medical HistoryRelationNameCommentsAortic aneurysmFatherAortic aneurysm,HTN, heart diseaseFatherHeart diseaseFatherHypertensionFatherHTN [Other], heart diseaseMotherHeart diseaseMotherHypertensionMotherRelationNameStatusComments FatherDeceasedMotherDeceased Social History Tobacco UseTypesPacks/DayYears UsedDateSmoking Tobacco: NeverSmokeless Tobacco: Never Tobacco Cessation:Counseling Given: Yes Alcohol UseStandard Drinks/WeekCommentsNever0 (1 standard drink = 0.6 [...] relatives?Once a week11/25/2022How often do you attend evangelical or orthodoxy services?Never11/25/2022o you belong to any clubs or organizations such as evangelical groups, unions, fraternal or athletic groups, or school groups?No11/25/2022How often do you attend meetings of the clubs or organizations you belong to?Never11/25/2022re you , , , , never , or living with a partner?Amhbmjl5511/25/2022 AUDIT-CAnswerDate RecordedQ1: How often do you have [...] hard at all11/25/2022HQ-2 AnswerDate RecordedPatient Health Questionnaire-2 Tggiy336Finblue mountain hospital, inc. [place] of Occupational [facility] - Occupational Stress QuestionnaireAnswerDate RecordedDo you feel stress - tense, restless, nervous, or anxious, or unable to sleep at night because yourmind is troubled all the time - these days?Only a yvajjq9811/25/2022Exercise Vital SignAnswerDate RecordedOn average, how many days [...] to sleep or slept in ashelter (including now)?No3CommentsUnknownSex and Gender InformationValueDate RecordedSex Assigned at BirthNot on fileLegal SexFemale 07/13/2022 7:20 PM EDTGender IdentityNot on fileSexual OrientationNot on file Last Filed Vital Signs Vital SignReadingTime TakenCommentsBlood Fgnogvjp912/80105/13/2024 1:48 PM EST Xvjau615703/13/2025 1:48 PM ESTTemperature--Respiratory Cxvi245605/13/2024 2:23 PM ESTOxygen Aeyqryyprv51%03/13/2025 1:48 PM ESTInhaled Oxygen Concentration-- Wdfhku427 kg (263 lb)03/13/2025 2:23 PM XCHDvztjj934.5 cm (5' 2 )03/13/2025 2:23 PM ESTBody Mass Index48. 2:23 PM EST Plan of Treatment DateTypeDepartmentCare Team (Latest Contact Info)Twlydwddvff25/05/2026 1:40 PM ESTProcedure Visit [facility] [address] [facility] [address] [place] [address] Alex Tam, SOPHY [address] [facility] [address] [place] [address] Health MaintenanceDue DateLast DoneCommentsCOVID-19 Vaccine ( season) 5006/09/2023, 03/31/2022, 02/03/2021, Additional history exists FhcgdrebfcmAzoxfisqqdec20/03/2013Colorectal Cancer ScreeningDiscontinued Pneumococcal Vaccine: 65+ DilmwSomaexhto19/10/2015, 12/11/2013Influenza Vaccine Ihuledzxh85/14/2025, 03/05/2024, 03/01/2023, Additional history existsCT ColonographyDiscontinuedFIT-DNADiscontinuedFITDiscontinuedFOBTDiscontinued SigmoidoscopyDiscontinued Procedures Procedure NamePriorityDate/TimeAssociated DiagnosisCommentsXR ANKLE LT MIN 3V 02/17/2025 1:59 PM EDT XR ANKLE LT MIN 3V01/23/2025 1:46 PM EDT VUYZSUVYYWYWowimxx98/03/2013 12:00 PM EDT from Last 3 Months or Most Recently Relevant to Health Maintenance Results * XR ANKLE LT MIN 3V (02/17/2025 1:59 PM EDT) Only the most recent of2 resultswithin the time period is included. Anatomical RegionLateralityModalityOtherSpecimen (Source)Anatomical Location / LateralityCollection Method / VolumeCollection TimeReceived Time02/17/2025 1:59 PM EDT Narrative 02/17/2025 2:02 PM EDT [facility] ?[address] ? [place] [address] ?XRay Report ? Signed ? Patient: USHA WALKER ?MR#: [id number] ?? : 1945 ?Acct:[id number] ?? Age/Sex: 79 / F ?ADM Date: 02/17/25 ?? Loc: RAD ? Attending Dr: Kelly Zepeda D.P.M. ? Ordering Physician: Kelly Zepeda D.P.M. ?? Date of Service: 02/17/25 ?? Procedure(s): XR ankle LT min 3V ?? Accession Number(s): [id number] ? cc: ROC STEELE ; Kelly Zepeda D.P.M. ? The [facility] ? [address] ? [place] [address] ? Patient Name: ?? USHA WALKER ? MRN: [id number] ? date: 1945 ?Sex: F ?? Assigned Patient Location: RAD ?? Current Patient Location: RAD ?? Accession/Order Number: [id number] ?? Exam Date: 02/17/2025 ??10:50 ?Report Date: 02/17/2025 ??13:59 ? At the request of: ?? KELLY ??ALICIAANDER ??DPM ? Procedure: ??XR ankle LT min 3V ? LEFT ANKLE - 3 views ? CLINICAL DATA: Follow-up ankle fractures ? COMPARISON: 01/23/2025 ? Semi weightbearing AP, lateral and oblique views ??were obtained. ??There is a ?? lateral plate and multiple screws along the distal fibula. ??3 screws cross to ?? the tibia. ??The hardware appears intact and unchanged from the prior. ??The ?? lateral skin delfin have been removed. ??The fractures at the distal fibula ?? and medial malleolus showing no significant interval change. ??There is no new ?? fracture or dislocation. ??Mild diffuse soft tissue swelling is seen. ? XR/XR ankle LT min 3V ?? IMPRESSION: ? STABLE ANKLE FRACTURES AND FIXATION HARDWARE ? Impression dictated by: Sushila Zeng M.D. ??02/17/2025 1:59 PM ? Dictation Location: [place] [address] ? Electronically authenticated by: [id number] ??Y ?? Date: 02/17/2025 ??13:59 ? Dictated By: ?Sushila Zeng M.D. ? Signed By: ?02/17/25 1402 ? DD/ 1359 ? TD/TT: ? Income Tax Investigator: Procedure Note Radiology, Radiologist, MD - 02/17/2025 [place] [address] XRay Report Signed Patient: USHA WALKER KMR#: [id number] : 1945cct:[id number] Age/Sex: 79 / FADM Date: 02/17/25 Loc: RAD Attending Dr: Kelly Zepeda D.P.M. Ordering Physician: Kelly Zepeda D.P.M. Date of Service: 02/17/25 Procedure(s): XR ankle LT min 3V Accession Number(s): [id number] cc: ROC STEELE ; Kelly Zepeda D.P.M. The [address] [address] Patient Name: USHA WALKER MRN: [id number] date: 1945 Sex: F Assigned Patient Location: RAD Current Patient Location: [facility] Accession/Order Number: [id number] Exam Date: 02/17/2025 10:50 Report Date: 02/17/2025 13:59 At the request of: KELLY ZEPEDA DPRen Procedure: XR ankle LT min 3V LEFT ANKLE - 3 views CLINICAL DATA: Follow-up ankle fractures COMPARISON: 01/23/2025 Semi weightbearing AP, lateral and oblique views were obtained. There seb lateral plate and multiple screws along the distal fibula. 3 screws crossto the tibia. The hardware appears intact and unchanged from the prior. The lateral skin delfin have been removed. The fractures at the distalfibula and medial malleolus showing no significant interval change. There is nonew fracture or dislocation. Mild diffuse soft tissue swelling is seen. XR/XR ankle LT min 3V IMPRESSION: STABLE ANKLE FRACTURES AND FIXATION HARDWARE Impression dictated by: Sushila Zeng M.D. 02/17/2025 1:59 PM Dictation Location: [place] [address] Electronically authenticated by: [id number] Y Date: 3:59 Dictated By: Sushila Zeng M.D. Signed By:02/17/25 1402 DD/ 1359 TD/TT: Income Tax Investigator: Authorizing ProviderResult TypeResult StatusGeneric External Data Provider CLINISYNC IMAGINGFinal Result * Colonoscopy (10/31/2012 12:00 PM EDT)Anatomical RegionLateralityModality EndoscopySpecimen (Source)Anatomical Location / LateralityCollection Method / VolumeCollection TimeReceived Time10/31/2012 12:00 PM EDT Narrative 10/31/2012 12:00 PM EDT PERFORMED AT [facility] LOCATION:[id number] DIVERTICULOSIS Procedure Note CONVERSION, GENERIC - 09/15/2022 PERFORMED AT [facility] LOCATION:[id number] DIVERTICULOSIS Authorizing ProviderResult TypeResult StatusDalaura Steele MDENDOSCOPY PROCEDURE ORDERABLESFinal Result from Last 3 Months or Most Recently Relevant to Health Maintenance Insurance Care Teams Team MemberRelationshipSpecialtyStart DateEnd Roc Steele MD [address] [facility] [address] [place] [address] PCP - GeneralInternal Medicine09/28/22 Roc Steele MD [address] [facility] [address] [place] [address] PCP - ACO Reach08/30/23 Luis Felipe Dugan DO [address] [place] [address] Referring MghjbwpkdIflwuzmxh23/7/24 Gladis Laird LPN [address] [facility] [address] [place] [address] 07/19/24
--- NOTE | 2025-03-28 10:05 | XR_ITS ---
The [address] [address] Patient Name: LUMA RIBEIRO MRN: [id number] date: 1945 Sex: F Assigned Patient Location: LAB Current Patient Location: LAB Accession/Order Number: [id number] Exam Date: 03/28/2025 10:06 Report Date: 03/28/2025 10:26 At the request of: KELLY MOSES DPRen Procedure: XR ankle LT min 3V LEFT ANKLE - 3 views CLINICAL DATA: Left ankle pain since fall yesterday. COMPARISON: 02/17/2025 AP, lateral and oblique views were obtained. There is a lateral plate with multiple screws along the distal fibula. Three of the screws extend into the tibia. The underlying distal fibular fracture is unchanged. A mildly distracted fracture at the base of the medial malleolus is again noted. There is no new fracture or dislocation. The talar dome is intact. A plantar calcaneal spur is seen. Mild soft tissue swelling is visualized. XR/XR ankle LT min 3V IMPRESSION: SIMILAR ANKLE FRACTURES. NO ACUTE BONY INJURY. Impression dictated by: Sushila Zeng M.D. 03/28/2025 10:26 AM Dictation Location: [place] [address] Electronically authenticated by: [id number] Y Date: 03/28/2025 10:26
== END 2025-03-28 09:55 | disposition home or self-care (01) ==
LOC: LAB 09:57
PROVIDERS: PCP Internal Medicine; Visit Provider Podiatrist Foot & Ankle Surgery
DX: M25.572 Pain in left ankle and joints of left foot (principal); S89.302D Unspecified physeal fracture of lower end of left fibula, subsequent encounter for fracture with routine healing; M77.32 Calcaneal spur, left foot; Z98.890 Other specified postprocedural states
CPT/HCPCS: 73610

== ENCOUNTER 2025-04-12 14:35 | Inpatient (IN) | payer MEDICARE, OTHER, SELFPAY ==
--- OUTSIDE RECORDS SUMMARY | 2025-03-31 06:00 | XMS_ITS ---
Author Organization [facility] Address [address] [facility] [address], [place] [address] Care Team Providers [facility] Food Service Worker Name Role Phone BillieKaden okeefe Unavailable [phone] Allergies Allergen (clinical drug ingredient) Drug/Non Drug Allergy documented on EMR Reaction Allergy Type Onset Date Status moxifloxacin avelox (uncoded) Unknown Allergy ActiveciprofloxacinCiprofloxacinUnknownDrug AllergyActiveclarithromycin ClarithromycinUnknownDrug AllergyActivemoxifloxacinMoxifloxacinUnknownDrug AllergyActiveSubstance with sulfonamide structure and antibacterial mechanism of action (substance)Sulfa AntibioticsUnknownDrug AllergyActive REASON FOR VISIT Left Ankle- Post Op Medications Medication SIG (Take, Route, Frequency, Duration) Notes Start Date End Date Status Isosorbide Mononitrate ER 30 MG Tablet Extended Release 24 Hour Oral; Duration: 90 Days ActiveMetoprolol Succinate ER 100 MG Tablet Extended Release 24 HourOral; Duration: 90 DaysActiveMetoprolol Succinate ER 50 MG Tablet Extended Release 24 HourOral; Duration: 90 DaysActivetiZANidine HCl 4 MG TabletOral; Duration: 90 DaysActiveZolpidem Tartrate 10 MG TabletOral; Duration: 90 DaysActive Fexofenadine HCl 180 MG Tablet1 tablet Swallow whole with water; do not take with fruit juices. Orally Once a dayActiveVitamin Q0TkbczwLikvniukl Oxide 400 MG Tablet1 tablet with food Orally Once a dayActiveSimvastatin 10 MG Tablet2 tablets in the evening Orally Once a dayActiveGabapentin 300 MG CapsuleOral; Duration: 90 DaysActiveXanax 0.25 MG Tablet1 tablet Orally Twice a dayActive Sennosides-Docusate Sodium 8.6-50 MG Tablet1 tablet as needed Orally Twice a day ActivePercocet 5-325 MG Tablet1 tablet as needed Orally every 6 hrsActive Meloxicam 7.5 MG Tablet1 tablet Orally Once a dayActiveAcetaminophen 325 MG Tablet1 tablet as needed Orally every 6 hrsActive Social History Section Notes: Patient is a nonsmoker. No alcohol use. Encounters Encounter Location Date [facility] [address] [facility] [address], [place] [address] 03/31/2025 Kaden Zepeda Closed displaced bimalleolar fracture of left ankle, initial encounter S82.842A and Syndesmotic disruption of left ankle, initial encounter S93.432A Assessments Encounter Date Diagnosis (ICD Code) Assessment Notes Treatment Notes Treatment Clinical Notes Section Notes 03/31/2025 Closed displaced bim alleolar fracture of left ankle, initial encounter (ICD-10 - S82.842A) Patient seen and evaluated. She is now >3 months s/p ORIF fibular malleolus fracture and syndesmotic stabilization. Her xrays were reviewed which shows healed fibular fracture and satifactory alignment of the syndesmosis. Medial malleolus fracture is mildly displaced with possible partial healing. Mortise otherwise intact. She may progress WB status to as tolerated without CAM boot. She was given an updated PT order. Given the falls and deconditioning I recommended she continue using the walker. Monitor closely and if she has increase in pain or instability she is to call the office for earlier appointment otherwise f/u in 2 months with WB ankle xrays 03/31/2025Syndesmotic disruption of left ankle, initial encounter (ICD-10 - S93.432A) Plan Of Treatment Treatment Notes Assessment Notes Closed displaced bimalleolar fracture of left ankle, initial encounter Patient seen and evaluated. She is now >3 months s/p ORIF fibular malleolus fracture and syndesmotic stabilization. Her xrays were reviewed which shows healed fibular fracture and satifactory alignment of the syndesmosis. Medial malleolus fracture is mildly displaced with possible partial healing. Mortise otherwise intact. She may progress WB status to as tolerated without CAM boot. She was given an updated PT order. Given the falls and deconditioning I recommended she continue using the walker. Monitor closely and if she has increase in pain or instability she is to call the office for earlier appointment otherwise f/u in 2 months with WB ankle xrays Next Appt Details Follow Up: 2 Months, Reason: Provider Name:Kaden garrido, 06/02/2025 10:30:00 AM, [address] [facility], [address], [place], [address], History and Physical Notes * HPI (History of Present Illness) CategorySub-CategoryDetailNotesCategory NotesGifty is s/p ORIF left fibula and syndesmosis and is >3 months from surgery. She has been WBAT in CAM boot and walker. She is doing home PT with a therapist who comes to house 3 days a week. She denies pain but relates the boot has caused her to fall twice since she was last seen. No other injuries have occured due to the falls. Examination CategorySub-CategoryDetailNotesCategory NotesGeneral Examination Skin: skin intact with no open wounds. No signs of infection Neuro: light touch intact to dorsal & plantar foot. Negative tinel's sign Vascular: Palpable pedal pulses. No significant swelling or bruising. No calf pain on squeeze MSK: No POP. Able to fire all muscle groups equally & symmetrically. No deformity Progress Notes * Rula WALKEReDOB:1945 (79 yo F)Acc No.[id number]:03/31/2025 Progress Notes Patient: Usha Leblanc :?Kaden Zepeda, DPMDOB:1945???Age:79 Y ???Sex:FemaleDate:03/31/2025Phone:Address:[address] [place], [place] [id number] Subjective: * Chief Complaints: * L eft Ankle- Post Op * HPI: ???Ankle:?Usha is s/p ORIF left fibula and syndesmosis and is >3 months from surgery. She has been WBAT in CAM boot and walker. She is doing home PT with a therapist who comes to house 3 days a week. She denies pain but relates the boot has caused her to fall twice since she was last seen. No other injuries have occured due to the falls. * Medical History: Glaucoma Heart Disease Hypertension Osteopenia Insomnia Medical History Verified * Surgical History: Total Left Hip ? ORIF Ankle Right ? Left Shoulder ? Bilateral Knee Replacements ? ORIF Ankle Left 2024? Surgical History verified.? * Social History: Social History Verified. ???Patient is a nonsmoker. No alcohol use. * Medications: T akingXanax 0.25 MG Tablet 1 tablet Orally Twice a day Sennosides-Docusate Sodium 8.6-50 MG Tablet 1 tablet as needed Orally Twice a day Percocet 5-325 MG Tablet 1 tablet as needed Orally every 6 hrs Meloxicam 7.5 MG Tablet 1 tablet Orally Once a day Acetaminophen 325 MG Tablet 1 tablet as needed Orally every 6 hrs Fexofenadine HCl 180 MG Tablet 1 tablet Swallow whole with water; do not take with fruit juices. Orally Once a day Vitamin D3 Magnesium Oxide 400 MG Tablet 1 tablet with food Orally Once a day Simvastatin 10 MG Tablet 2 tablets in the evening Orally Once a day Gabapentin 300 MG Capsule Oral Isosorbide Mononitrate ER 30 MG Tablet Extended Release 24 Hour Oral Metoprolol Succinate ER 100 MG Tablet Extended Release 24 Hour Oral Metoprolol Succinate ER 50 MG Tablet Extended Release 24 Hour Oral tiZANidine HCl 4 MG Tablet Oral Zolpidem Tartrate 10 MG Tablet Oral Medication List reviewed and reconciled with the patientTaking Xanax 0.25 MG Tablet 1 tablet Orally Twice a day Taking Sennosides-Docusate Sodium 8.6-50 MG Tablet 1 tablet as needed Orally Twice a day Taking Percocet 5-325 MG Tablet 1 tablet as needed Orally every 6 hrs Taking Meloxicam 7.5 MG Tablet 1 tablet Orally Once a day Taking Acetaminophen 325 MG Tablet 1 tablet as needed Orally every 6 hrs Taking Fexofenadine HCl 180 MG Tablet 1 tablet Swallow whole with water; do not take with fruit juices. Orally Once a day Taking Vitamin D3 Taking Magnesium Oxide 400 MG Tablet 1 tablet with food Orally Once a day Taking Simvastatin 10 MG Tablet 2 tablets in the evening Orally Once a day Taking Gabapentin 300 MG Capsule Oral Taking Isosorbide Mononitrate ER 30 MG Tablet Extended Release 24 Hour Oral Taking Metoprolol Succinate ER 100 MG Tablet Extended Release 24 Hour Oral Taking Metoprolol Succinate ER 50 MG Tablet Extended Release 24 Hour Oral Taking tiZANidine HCl 4 MG Tablet Oral Taking Zolpidem Tartrate 10 MG Tablet Oral Medication List reviewed and reconciled with the patient * Allergies: a veloxCiprofloxacinClarithromycinMoxifloxacinSulfa AntibioticsyesAllergies Verified. Objective: * Examination: ???General Examination: ???Skin: skin intact with no open wounds. No signs of infection Neuro: light touch intact to dorsal & plantar foot. Negative tinel's sign Vascular: Palpable pedal pulses. No significant swelling or bruising. No calf pain on squeeze MSK: No POP. Able to fire all muscle groups equally & symmetrically. No deformity. Assessment: * Assessment: 1.?Closed displaced bimalleolar fracture of left ankle, initial encounter - S82.842A (Primary) ??2.?Syndesmotic disruption of left ankle, initial encounter - S93.432A? ? Plan: * Treatment: Notes: Patient seen and evaluated. She is now >3 months s/p ORIF fibular malleolus fracture and syndesmotic stabilization. Her xrays were reviewed which shows healed fibular fracture and satifactory alignment of the syndesmosis. Medial malleolus fracture is mildly displaced with possible partialhealing. Mortise otherwise intact.? She may progress WB status to as tolerated without CAM boot. She was given an updated PT order. Given the falls and deconditioning I recommended she continue using the walker. Monitor closely and if she has increase in pain or instability she is to call the office for earlier appointment otherwise f/u in 2 months with WB ankle xrays?? * Follow Up: 2 Months Billing Information: * Visit Code: 83092 Office Visit, Est Pt., Level 3. * Procedure Codes: * Sign off status: Completed true * Provider: Shari Zepeda DPM Date: 06/01/2024 Generated for Printing/Faxing/eTransmitting on:?04/12/2025 02:53 PM EST
--- OUTSIDE RECORDS SUMMARY | 2025-04-10 13:00 | XMS_ITS | Encounter Summary ---
Author Organization [facility] Address [address] [place] [address] Care Team Providers Care Certified Drug Counselor Name Role Phone Roc Steele MD Primary Care Provider [phone] Roc Steele MD Unavailable [phone] Luis Felipe Dugan DO Unavailable [phone] Gladis Laird LPN Unavailable Encounter Details DateTypeDepartmentCare Team (Latest Contact Info)Wdltxzdefxf49/11/2025 1:00 PM ESTOffice Visit [facility] [address] [place] [id number] Aarti Castillo, DEISY [address] [place], [place] [id number] Benign essential hypertension (Primary Dx); Anxiety; Age-related osteoporosis without current pathological fracture; Lumbosacral spondylosis without myelopathy; Acute non-recurrent pansinusitis Social History Tobacco UseTypesPacks/DayYears UsedDateSmoking Tobacco: NeverSmokeless [...] relatives?Once a week11/25/2022How often do you attend mandaen or mandaeism services?Never11/25/2022o you belong to any clubs or organizations such as mandaen groups, unions, fraternal or athletic groups, or school groups?No11/25/2022How often do you attend meetings of the clubs or organizations you belong to?Never11/25/2022re you , , , , never , or living with a partner?Xnmsgjq7711/25/2022 AUDIT-CAnswerDate RecordedQ1: How often do you have [...] hard at all11/25/2022HQ-2 AnswerDate RecordedPatient Health Questionnaire-2 Uvbrp820[facility] of Occupational Health - Occupational Stress QuestionnaireAnswerDate RecordedDo you feel stress - tense, restless, nervous, or anxious, or unable to sleep at night because yourmind is troubled all the time - these days?Only a wnlgao1611/25/2022Exercise Vital SignAnswerDate RecordedOn average, how many days [...] steady place to sleep or slept in [facility] (including now)?No11/25/2022CommentsUnknownSex and Gender InformationValueDate RecordedSex Assigned at BirthNot on fileLegal SexFemale 07/13/2022 7:20 PM EDTGender IdentityNot on fileSexual OrientationNot on file documented as of this encounter Last Filed Vital Signs Vital SignReadingTime TakenCommentsBlood Ceyfgtzq814/7804/10/2025 1:18 PM EST Fjibg623204/10/2025 1:18 PM ESTTemperature--Respiratory Xlrt310806/11/2024 1:18 PM ESTOxygen Drwjegiist14%04/10/2025 1:18 PM ESTInhaled Oxygen Concentration-- Gkjumt411 kg (268 lb)04/10/2025 1:18 PM SNKYjzhrq042.5 cm (5' 2 )04/10/2025 1:18 PM ESTBody Mass Index49.02106/11/2024 1:18 PM ESTdocumented in this encounter Functional Status * Over the past 2 weeks, how often have you been bothered by any of the following problems?QuestionAnswerDate of AssessmentAuthorLittle interest or pleasure in doing thingsSeveral days04/10/2025 1:06 PM Andrez SANABRIAeling down, depressed, or hopelessNot at all04/10/2025 1:06 PM PAPO SANABRIA Patient Health Questionnaire-2 Succq594 1:06 PM PAPO SANABRIA documented as of this encounter Progress Notes * Aarti Castillo, DIRECTOR OF STRATEGY & MOBILE - 04/10/2025 1:00 PM EST Images from the original note were not included. Subjective Patient ID: Usha Walker is a 79 y.o. female who presents for No chief complaint on file.. Usha presents today for a 3 month medication follow up. She would like to see if there is anything else to take besides the Prolia injection. Pain This is a chronic problem. The current episode started more than 1 year ago. The problem occurs intermittently. The problem has been waxing and waning since onset. The context of the pain is unknown.The pain is present in the right hip, right upper leg and right lower leg. The pain is medium. The symptoms are aggravated by inactivity, exercise and any movement. Past treatments include prescription narcotic. The treatment provided significant relief. Her past medical history is significant for chronic back pain. Over the past 2 weeks, how often have you been bothered by any of the following problems? Little interest or pleasure in doing things: Several days Feeling down, depressed, or hopeless: Not at all Patient Health Questionnaire-2 Score: 1 Current Outpatient Medications on File Prior to Visit Medication Sig Dispense Refill ALPRAZolam (Xanax) 0.25 MG tablet Take 1 tablet (0.25 mg) by mouth 2 (two) times a day as needed for anxiety 60 tablet 0 Calcium Carb-Cholecalciferol 600-20 MG-MCG chewable tablet calcium carb 600 mg(1,500 mg)-vit D3 400unit-minerals chewable tablet Take by oral route. calcium citrate 315 mg + D2 6.25 mcg tablet Take 315 mg by mouth in the morning. escitalopram (Lexapro) 10 MG tablet Take 10 mg by mouth Daily fexofenadine (Radha) 180 MG tablet Take 1 tablet (180 mg) by mouth Daily as needed (alleriges) 90tablet 3 furosemide (Lasix) 20 MG tablet Take 1 tablet (20 mg) by mouth Daily (Patient taking differently: Take 20 mg by mouth if needed) 90 tablet 3 gabapentin (Neurontin) 300 MG capsule Take 1 capsule (300 mg) by mouth in the morning and 1 capsule(300 mg) before bedtime. 200 capsule 3 hydrALAZINE (Apresoline) 25 MG tablet Take 25 mg by mouth in the morning and 25 mg before bedtime. HYDROcodone-acetaminophen ([place]) 5-325 MG tablet Take 1 tablet by mouth every 4 (four) hours if needed for moderate pain or severe pain 180 tablet 0 isosorbide mononitrate ER (Imdur) 30 MG 24 hr tablet Oral; Duration: 90 Days magnesium oxide (Mag-Ox) 400 MG tablet Take 400 mg by mouth Daily meloxicam (Mobic) 7.5 MG tablet Take 7.5 mg by mouth Daily metoprolol succinate XL (Toprol-XL) 100 MG 24 hr tablet Take 100 mg by mouth in the morning and 100mg before bedtime. Multiple Vitamin (Multi Vitamin) tablet 1 (one) time each day at the same time. pantoprazole (ProtoNix) 40 MG EC tablet TAKE 1 TABLET BY MOUTH ONCE DAILY 90 tablet 3 Prolia 60 MG/ML solution prefilled syringe INJECT 60MG SUBCUTANEOUSLY ONCE DIRECTED (Patient nottaking: Reported on 03/17/2025) 1 mL 0 simvastatin (Zocor) 10 MG tablet TAKE 1 [...] 03/26/2019 T12-L3 SD TOTAL HIP ARTHROPLASTY Left [place] (01-29-2020 to 01-30-2020) RADIOFREQUENCY ABLATION Left 06/25/2019 L2-L5 REFRACTIVE SURGERY 2015 SHOULDER SURGERY left TOTAL KNEE ARTHROPLASTY Bilateral left 2002 right 2002 US ASPIRATION INJECTION INTERMEDIATE JOINT 12/16/2020 US ASPIRATION INJECTION INTERMEDIATE JOINT 12/16/2020 Visit Vitals Smoking Status Never Review of Systems Constitutional: Negative. HENT: Negative. Eyes: Negative. Respiratory: Negative. Cardiovascular: Negative. Gastrointestinal: Negative. Genitourinary: Negative. Musculoskeletal: Positive for back pain and gait problem. Skin: Negative. Psychiatric/Behavioral: Negative. Objective Physical Exam Vitals reviewed. Constitutional: Appearance: Normal appearance. HENT: Head: Normocephalic. Nose: Nose normal. Right Turbinates: Swollen. Left Turbinates: Swollen. Mouth/Throat: Mouth: Mucous membranes are moist. Pharynx: Oropharynx is clear. Postnasal drip present. Eyes: Conjunctiva/sclera: Conjunctivae normal. Cardiovascular: Rate [...] Diagnoses and all orders for this visit: Benign essential hypertension - hydrALAZINE (Apresoline) 25 MG tablet; Take 1 tablet (25 mg) by mouth in the morning and 1 tablet(25 mg) before bedtime. Patient's blood pressure is currently well controlled. Continue with current medications and I willcontinue to monitor. Goal BP remains less than 130/80. Anxiety - escitalopram (Lexapro) 10 MG tablet; Take 1 tablet (10 mg) by mouth Daily Take medication as directed. Verbalizes understanding of the need to be seen in the ER for excessive stress, elevated blood pressure or palpitations. Advised on relaxation methods to decrease anxietyand depression. Pt offers understanding of treatment plan. Age-related osteoporosis without current pathological fracture - alendronate (Fosamax) 70 MG tablet; Take 1 tablet (70 mg) by mouth every 7 (seven) days Take in the morning with a full glass of water, on an empty stomach, and do not take anything else by mouth or lie down for the next 30 min. Prolia is too expensive. Will try Fosamax Lumbosacral spondylosis without myelopathy - HYDROcodone-acetaminophen ([place]) 5-325 MG tablet; Take 1 tablet by [...] OARRS Report was reviewed for this patient. Acute non-recurrent pansinusitis - doxycycline (Vibramycin) 100 MG capsule; Take 1 capsule (100 mg) by mouth in the morning and 1 capsule (100 mg) before bedtime. Do all this for 10 days. Take with at least 8 ounces (large glass) ofwater, do not lie down for 30 minutes after. Start the above as directed. Reviewed potential s/e with patient. Encouraged probiotic while on antibiotic. Increase water intake, get plenty of rest. Can take OTC allergy medication for symptomatic relief. Tylenol/Motrin prn. Follow up if no improvement in one week. No follow-ups on file. documented in this encounter Plan of Treatment DateTypeDepartmentCare Team (Latest Contact Info)Pspmlfffxmo03/05/2026 1:40 PM ESTProcedure Visit [facility] [address] [facility] [address] [place] [id number] Alex Tam, DPRen [address] [facility] [address] [place] [address] documented as of this encounter Goals GoalPatient Goal TypeAssociated ProblemsRecent ProgressPatient-Stated?Author Help patient manage antidepressant medication Care PlanPatient on antidepressant monitoring planNoGAURAV SANDERSONAdocumented as of this encounter Visit Diagnoses Diagnosis Benign essential hypertension- Primary Essential hypertension, benign Anxiety Anxiety state, unspecified Age-related osteoporosis without current pathological fracture Lumbosacral spondylosis without myelopathy Acute non-recurrent pansinusitis documented in this encounter Additional Health Concerns Active ProblemsNoted DateDiagnosed DatePatient on antidepressant monitoring plan 5AssessmentNoted TimePHQ-9 Depression Total Score: 3:00 PM ESTdocumented as of this encounter Care Teams Team MemberRelationshipSpecialtyStart DateEnd Date Roc Steele MD [address] [facility] [address] [place] [address] PCP - GeneralInternal Medicine09/28/22 Roc Steele MD [address] [facility] [address] [place] [address] PCP - ACO Reach08/30/23 Luis Felipe Dugan DO [address] [place] [address] Referring JmltmmrrmPeaqqvobs82/7/24 Gladis Laird LPN [address] [facility] [address] [place] [address] 07/19/24documented as of this encounter
[2025-04-12] VITALS (50 sets, daily range): BP systolic 128–203; BP diastolic 80–132; PULSE 73–137; TEMP 36.6–36.7; O2SAT 91–100; BMI 51.5; BMI 44.7
--- NOTE | 2025-04-12 14:45 | ECG_ITS ---
The [facility] Test Date: 2025-04-12 Pat Name: LUMA RIBEIRO Department: Room: - Gender: Female Candle Cutter: : 1945 Requested By: REJI FORRESTER Order Number: [id number] Reading MD: SAUNDRA MCCULLOUGH M.D. Measurements Intervals [place] Rate: 79 P: 49 DE: 138 QRS: 102 QRSD: 110 T: -23 QT: 410 QTc: 444 Interpretive Statements 1100 Sinus rhythm 1570 with occasional ventricular premature complexes [address] depression [address] & Twave abnormality 7100 Abnormal right axis deviation 9140 abnormal rhythm ECG Compared to ECG 03/27/2025 13:25:25 Ventricular premature complex(es) now present ST (T wave) deviation now present Right-axis deviation now present Intraventricular conduction delay no longer present Left ventricular hypertrophy no longer present Electronically Signed On 04-13-2025 10:26:02 EST by SAUNDRA MCCULLOUGH M.D.
--- NOTE | 2025-04-12 14:46 | XR_ITS ---
The [address] [address] Patient Name: LUMA RIBEIRO MRN: [id number] date: 1945 Sex: F Assigned Patient Location: ED.MAIN Current Patient Location: ED.MAIN Accession/Order Number: [id number] Exam Date: 04/12/2025 14:53 Report Date: 04/12/2025 15:16 At the request of: MARION HAGEN MD Procedure: XR chest 1V XR chest 1V 04/12/2025 2:58 PM SIGNS AND SYMPTOMS: Cough, weakness, shortness of breath PROTOCOL: Frontal radiograph of the chest COMPARISON: 01/28/2025 FINDINGS: The trachea is midline. Atherosclerotic changes are present in the thoracic aorta. There is cardiomegaly. Interstitial prominence is noted with perihilar vascular prominence suggesting congestive heart failure. The bony thorax is intact. Degenerative changes are noted in the shoulders and thoracic spine. XR/XR chest 1V IMPRESSION: Findings suggest congestive heart failure. Impression dictated by: Sj Bach M.D. 04/12/2025 3:16 PM Dictation Location: [place] [address] Electronically authenticated by: [id number] Y Date: 04/12/2025 15:16
--- NOTE | 2025-04-12 14:46 | ED.GENADUL1 ---
HPI HPI - General Adult General Chief complaint: Upper Respiratory Infection Stated complaint: ILL Time Seen by Provider: 04/12/25 14:39 Source: patient Mode of arrival: ambulance Limitations: no limitations History of Present Illness HPI narrative: 79-year-old female presented for not feeling well. She states she has had a cough for 2 days and her appetite has been poor. She states she has only urinated twice in the last 24 hours. She has not had a fever or productive cough. She does not complain of any pain. She has no abdominal pain or dysuria. She has not been around anybody who has been ill. Related Data Home Medications ?Medication ?Instructions ?Recorded ?Confirmed simvastatin 10 mg tablet 10 mg PO DAILY 12/01/22 04/12/25 fexofenadine 180 mg tablet 180 mg PO DAILY 12/26/24 03/27/25 (Radha Allergy) gabapentin 300 mg capsule 300 mg PO BID 12/26/24 03/27/25 magnesium oxide 400 mg (241.3 mg 400 mg PO DAILY 12/26/24 03/27/25 magnesium) tablet metoprolol succinate 100 mg 100 mg PO DAILY 12/26/24 04/12/25 tablet,extended release 24 hr isosorbide mononitrate 30 mg 30 mg PO DAILY 12/28/24 04/12/25 tablet,extended release 24 hr hydralazine 25 mg tablet 25 mg PO DAILY 03/27/25 04/12/25 hydrocodone 5 mg-acetaminophen 325 1 tab PO Q4H PRN pain 03/27/25 04/12/25 mg tablet meloxicam 7.5 mg tablet 7.5 mg PO DAILY 03/27/25 04/12/25 alendronate 70 mg tablet mg PO 04/12/25 escitalopram oxalate 10 mg tablet mg 04/12/25 zolpidem 10 mg tablet mg 04/12/25 Previous Rx's ?Medication ?Instructions ?Recorded alprazolam 0.25 mg tablet 0.25 mg PO DAILY PRN anxiety #5 12/29/24 tabs cholecalciferol (vitamin D3) 50 50 mcg PO DAILY #30 tabs 12/29/24 mcg (2,000 unit) tablet (Vitamin D3) docusate sodium 100 mg capsule 100 mg PO BID PRN Constipation #0 12/29/24 caps sennosides 8.6 mg-docusate sodium 1 tab-cap PO QD PRN Constipation 12/29/24 50 mg tablet (Senna Plus) #0 tabs tizanidine 4 mg tablet 2 mg (1/2 x 4 mg) PO Q8H PRN 12/29/24 Muscle spasm #0 tabs Allergies Allergy/AdvReac Type Severity Reaction Status Date / Time clarithromycin Allergy Severe Rash Verified 04/12/25 14:42 moxifloxacin (From Avelox) Allergy Severe tongue Verified 04/12/25 14:42 swelling Sulfa (Sulfonamide Allergy Unknown Unknown Verified 04/12/25 14:42 Antibiotics) ciprofloxacin (From Cipro) Allergy Rash Verified 04/12/25 14:42 Opioid HPI Opioid Management Most Recent Opioid Data: Last Pain Scale 8 03/27/25, 13:21 Last Pain Intensity 2 12/27/24, 18:01 Last ORT Total Score 0 12/26/24, 17:09 Last ORT Risk Category Low Risk 12/26/24, 17:09 Review of Systems ROS Narrative A ten point review of systems is negative except as noted above. [facility] Medical History Benign essential hypertension ?I10 - Essential (primary) hypertension (ICD-10) Chronic heart failure with preserved ejection fraction (HFpEF) ?I50.32 - Chronic diastolic (congestive) heart failure (ICD-10) Generalized weakness ?R53.1 - Weakness (ICD-10) Fall ?W19.XXXA - Unspecified fall, initial encounter (ICD-10) Pulmonary edema ?J81.1 - Chronic pulmonary edema (ICD-10) Closed head injury ?S09.90XA - Unspecified injury of head, initial encounter (ICD-10) Contusion of right knee ?S80.01XA - Contusion of right knee, initial encounter (ICD-10) Abrasion of elbow, right ?S50.311A - Abrasion of right elbow, initial encounter (ICD-10) Pneumonia ?J18.9 - Pneumonia, unspecified organism (ICD-10) Acute CHF (congestive heart failure) ?I50.9 - Heart failure, unspecified (ICD-10) Acute kidney injury ?N17.9 - Acute kidney failure, unspecified (ICD-10) Community acquired pneumonia ?J18.9 - Pneumonia, unspecified organism (ICD-10) GERD without esophagitis ?K21.9 - Gastro-esophageal reflux disease without esophagitis (ICD-10) Lump of left breast ?N63.20 - Unspecified lump in the left breast, unspecified quadrant (ICD-10) High cholesterol ?E78.00 - Pure hypercholesterolemia, unspecified (ICD-10) High blood pressure ?I10 - Essential (primary) hypertension (ICD-10) Anxiety ?F41.9 - Anxiety disorder, unspecified (ICD-10) Macular degeneration ?H35.30 - Unspecified macular degeneration (ICD-10) Degenerative disc disease Fibromyalgia ?M79.7 - Fibromyalgia (ICD-10) Right shoulder pain ?M25.511 - Pain in right shoulder (ICD-10) Sleep apnea ?G47.30 - Sleep apnea, unspecified (ICD-10) Surgical History Carpal tunnel syndrome, left ?G56.02 - Carpal tunnel syndrome, left upper limb (ICD-10) History of arthroplasty of right ankle ?Z96.661 - Presence of right artificial ankle joint (ICD-10) History of bilateral knee replacement ?Z96.653 - Presence of artificial knee joint, bilateral (ICD-10) History of right hip replacement ?Z96.641 - Presence of right artificial hip joint (ICD-10) Family History Mother Family history of CHF (congestive heart failure) Sister Family history of CHF (congestive heart failure) Son Family history of cancer Family history of diabetes mellitus Family history of hypertension Social History Within the past year, how often did you have a drink containing alcohol: never Score interpretation: A score less than 3 is consistent with normal alcohol consumption. Smoking status: Never smoker Non-prescribed substance use: denies use Previous occupational history: retired Highest level of school completed/degree received: GED or equivalent Are you now , , , , never or living with a partner: In a typical week, how many times do you talk on the telephone with family, friends, or neighbors: 3 or more times per week How often do you get together with friends or relatives: 3 or more times per week How often do you attend amish or restoration services: never Little interest or pleasure in doing things: not at all Feeling down, depressed, or hopeless: not at all Feel stressed/tense/nervous/anxious/difficulty sleeping: not at all Do you think of yourself as: straight/heterosexual Gender Identity: female Exam Narrative Exam Narrative: Nurses note and vital signs reviewed General:The patient appears in no acute distress Skin:Warm, dry, no pallor noted.There is no rash noted. Head:Normocephalic, atraumatic Eye: Normal conjunctiva, no drainage Ears, Nose, Mouth, and Throat: oral mucosa is mildly dry. Cardiovascular:Regular Rate and Rhythm, not tachycardic Respiratory:Patient is in no distress, no accessory muscle use, lungs are clear to auscultation, no wheezing, rales or rhonchi Back:non-tender GI: Soft and nontender Musculoskeletal: The patient has no evidence of calf tenderness, no pitting edema, symmetrical pulses noted bilaterally Neurological:A&O, normal speech Psychiatric:Cooperative Constitutional Vital Signs, click to edit/add: Last Vital Signs Temp 97.9 F 04/12/25 14:35 Pulse 81 04/12/25 15:52 Resp 29 H 04/12/25 15:52 BP 164/96 H 04/12/25 15:52 Pulse Ox 97 04/12/25 15:52 O2 Del Method Room Air 04/12/25 14:35 Course Vital Signs Vital signs: Vital Signs Temperature 97.9 F 04/12/25 14:35 Pulse Rate 73 04/12/25 14:35 Respiratory Rate 18 04/12/25 14:35 Blood Pressure 140/80 04/12/25 14:35 Pulse Oximetry 99 04/12/25 14:35 Oxygen Delivery Method Room Air 04/12/25 14:35 Temperature 97.9 F 04/12/25 14:35 Pulse Rate 81 04/12/25 15:52 Respiratory Rate 29 H 04/12/25 15:52 Blood Pressure 164/96 H 04/12/25 15:52 Pulse Oximetry 97 04/12/25 15:52 Oxygen Delivery Method Room Air 04/12/25 14:35 Medical Decision Making Lab Data Labs: Lab Results 04/12/25 04/12/25 Range/Units 14:54 15:10 WBC 6.8 (4.0-11.0) 10^3/uL RBC 4.83 (4.20-5.40) 10^6/uL Hgb 15.8 (12.0-16.0) g/dL Hct 46.5 (36.0-48.0) % MCV 96.3 (81.0-99.0) fL MCH 32.7 (26.7-34.0) pg MCHC 34.0 (29.9-35.2) g/dL RDW 13.2 (11.0-15.0) % Plt Count 230 (150-450) 10^3/uL MPV 11.1 (9.5-13.5) fL Neut % (Auto) 46.9 (43.0-75.0) % Lymph % (Auto) 38.3 (20.5-60.0) % [place] % (Auto) 13.5 H (1.7-12.0) % Eos % (Auto) 0.6 L (0.9-7.0) % Baso % (Auto) 0.6 (0.2-2.0) % Neut # (Auto) 3.2 (1.4-6.5) 10^3/uL Lymph # (Auto) 2.6 (1.2-3.8) 10^3/uL [place] # (Auto) 0.9 H (0.3-0.8) 10^3/uL Eos # (Auto) 0.0 (0.0-0.7) 10^3/uL Baso # (Auto) 0.0 (0.0-0.1) 10^3/uL Abs Immat Gran (auto) 0.01 (0.00-0.03) 10^3/uL Imm/Tot Granulo (auto) 0.1 (0.0-0.5) % Sodium 142 (136-145) mmol/L Potassium 4.0 (3.5-5.1) mmol/L Chloride 101 (98-107) mmol/L Carbon Dioxide 25.7 (21.0-32.0) mmol/L Anion Gap 19.3 BUN 14.0 (7.0-18.0) mg/dL Creatinine 1.06 H (0.55-1.02) mg/dL Est GFR ( Amer) >60 (>=60 mL/min/1.73m^2) Est GFR (Non-Af Amer) 50 L (>=60 mL/min/1.73m^2) BUN/Creatinine Ratio 13.2 Glucose 86 (74-106) mg/dL Calcium 9.4 (8.5-10.1) mg/dL Troponin I High Sens 45.1 (4.0-51.3) pg/mL NT-Pro-B Natriuret Pep 1743.0 (<=1800.0) pg/mL Urine Color Yellow (YELLOW) Urine Clarity Clear (CLEAR) Urine pH 6.0 (5.0-9.0) Ur Specific [place] >=1.030 A (1.005-1.025) Urine Protein 30 A (NEG/TRACE) mg/dL Urine Glucose (UA) Negative (NEGATIVE) mg/dL Urine Ketones >=80 A (NEGATIVE) mg/dL Urine Occult Blood Negative (NEGATIVE) Urine Nitrite Negative (NEGATIVE) Urine Bilirubin Small A (NEGATIVE) Urine Urobilinogen 0.2 (0.2-1.0) EU/dL Ur Leukocyte Esterase Negative (NEGATIVE) Urine RBC None seen (0-2) #/HPF Urine WBC None seen (NONE SEEN) #/HPF Ur Squamous Epith Cells Few A (NONE/RARE) #/LPF Urine Crystals Seen A (None Seen) #/HPF Amorphous Sediment Few Urine Bacteria Trace A (NONE SEEN) #/HPF Urine Casts Seen A (NONE SEEN) #/LPF Hyaline Casts Rare Urine Mucus Trace A (NONE SEEN) Ur Culture Indicated? No Influenza Type A Ag Negative Influenza Type B Ag Negative SARS-CoV-2 Ag (CV2AG) Negative (NEGATIVE) Imaging Data Chest x-ray: Radiologist's impression: ITS Impressions Chest X-Ray 04/12/25 14:46 IMPRESSION: Findings suggest congestive heart failure. Impression dictated by: Sj Bach M.D. 04/12/2025 3:16 PM Dictation Location: [place] [address] Electronically authenticated by: [id number] Y Date: 04/12/2025 15:16 ECG Data Attestation: I personally reviewed and interpreted this ECG as follows: (EKG on my interpretation shows sinus rhythm with rate of 79 and a PVC.) Critical Care Time Critical Care Time Critical Care Time: Yes Total Critical Care Time: 35 Attestation: Due to the high probability of sudden and clinically significant deterioration in the patient's condition he/she required the highest level of my preparedness to intervene urgently I provided critical care time including documentation time, medication orders and management, reevaluation, vital sign assessment, ordering and reviewing of lab tests, ordering and reviewing of x-ray studies, and admission orders. Aggregate critical care time is 35 minutes including only time during which I was engaged in work directly related to his/her care and did not include time spent treating other patients simultaneously. Discharge Plan Discharge Chief Complaint: Upper Respiratory Infection Clinical Impression: Congestive heart failure Patient Disposition: Admitted As Inpatient Time of Disposition Decision: 16:12 Condition: Fair
--- OUTSIDE RECORDS SUMMARY | 2025-04-12 14:53 | XMS_ITS ---
Author Organization [facility] Address [address] [place] [address] Care Team Providers Care Hammer Runner Name Role Phone Roc Steele MD Primary Care Provider [phone] Roc Steele MD Unavailable [phone] Luis Felipe Dugan DO Unavailable [phone] Gladis Laird LPN Unavailable 30 Day Monitoring Program Status:Closed (Closed) Start date:03/10/2025 Enrollment date:03/10/2025 Enrollment reason:Identified from transitional care managment End date:04/09/2025 Close reason:Actively enrolled in CCM Continued Care and Services Coordination
--- OUTSIDE RECORDS SUMMARY | 2025-04-12 14:53 | XMS_ITS | Encounter Summary ---
Author Organization [facility] Address [address] [place] [address] Care Team Providers Care Overedge Sewer Name Role Phone Roc Steele MD Primary Care Provider [phone] Roc Steele MD Unavailable [phone] Luis Felipe Dugan DO Unavailable [phone] Gladis Laird LPN Unavailable Encounter Details DateTypeDepartmentCare Team (Latest Contact Info)Jrukxpccdpi81/01/2025Patient Outreach [facility] [address] [place] [address] Gladis Laird LPN [address] [place] [address] Social History Tobacco UseTypesPacks/DayYears UsedDateSmoking Tobacco: NeverSmokeless [...] relatives?Once a week11/25/2022How often do you attend amish or anabaptism services?Never11/25/2022o you belong to any clubs or organizations such as amish groups, unions, fraternal or athletic groups, or school groups?No11/25/2022How often do you attend meetings of the clubs or organizations you belong to?Never11/25/2022re you , , , , never , or living with a partner?Nrbydea7711/25/2022 AUDIT-CAnswerDate RecordedQ1: How often do you have [...] hard at all11/25/2022HQ-2 AnswerDate RecordedPatient Health Questionnaire-2 Uyeur029Finintermountain medical center [place] of Occupational Health - Occupational Stress QuestionnaireAnswerDate RecordedDo you feel stress - tense, restless, nervous, or anxious, or unable to sleep at night because yourmind is troubled all the time - these days?Only a ssyekc5511/25/2022Exercise Vital SignAnswerDate RecordedOn average, how many days [...] steady place to sleep or slept in [place] (including now)?No11/25/2022CommentsUnknownSex and Gender InformationValueDate RecordedSex Assigned at BirthNot on fileLegal SexFemale 07/13/2022 7:20 PM EDTGender IdentityNot on fileSexual OrientationNot on file documented as of this encounter Progress Notes * Gladis Laird LPN - 03/31/2025 11:18 AM EST Spoke to pt for monitoring. Pt states she is doing ok. Shares she fell on 03/27 and had to go to the ER. ER record uploaded to chart. Pt states that she hit head on stove but all X-rays and scans came back ok in the ER so she was discharged home. Pt denies any medication changes. Shares that she has gotten to take boot off and feels that the boot contributed to the fall. Pt continues to get outpatient PT from the [facility]. She states they are coming this afternoon yet. Denies any needs at this time. Flowsheet Row Patient Outreach from 03/31/2025 [facility] with Gladis Laird LPN Week Number Call Week 3 Call Was patient contacted successfully? Yes Have you had any urgent care/ED/Hospital visits since discharge? Yes If yes, where did you go? Emergency Room What was the reason? 03-27 Any medication changes since last contact? No [...] Plan of Treatment DateTypeDepartmentCare Team (Latest Contact Info)Hzmqhhckbhq66/05/2026 1:40 PM ESTProcedure Visit [facility] [address] [facility] [address] [place] [phone] Alex Tam DPM [address] [facility] 5 [place] [address] documented as of this encounter Visit Diagnoses Diagnosis Benign essential hypertension- Primary Essential hypertension, benign Paroxysmal supraventricular tachycardia (HCC) Paroxysmal supraventricular tachycardia documented in this encounter Additional Health Concerns AssessmentNoted TimePHQ-9 Depression Total Score: 3:00 PM EST documented as of this encounter Care Teams Team MemberRelationshipSpecialtyStart DateEnd Date Roc Steele MD [address] [facility] [address] [place] [address] PCP - GeneralInternal Medicine09/28/22 Roc Steele MD [address] [place] [address] PCP - ACO Reach08/30/23 Luis Felipe Dugan DO [address] [place] [address] Referring AvblbwzfbUriaaygri58/7/24 Gladis Laird LPN [address] [facility] [address] [place] [address] 07/19/24documented as of this encounter
--- OUTSIDE RECORDS SUMMARY | 2025-04-12 14:53 | XMS_ITS | Patient Health Record ---
Author Organization [email or web address] Address [address] [facility] [address], [place] [address] Care Team Providers Care Software Support Representative Name Role Phone Kaden Zepeda Unavailable [phone] Allergies Allergen (clinical drug ingredient) Drug/Non Drug [...] with fruit juices. Orally Once a day ActiveVitamin G7MywqsdFjdchkvtr Oxide 400 MG Tablet1 tablet with food Orally Once a dayActiveSimvastatin 10 MG Tablet2 tablets in the evening Orally Once a dayActiveGabapentin 300 MG CapsuleOral; Duration: 90 DaysActiveIsosorbide Mononitrate ER 30 MG Tablet Extended Release 24 HourOral; Duration: 90 Days ActiveXanax 0.25 MG Tablet1 tablet Orally Twice a dayActiveMetoprolol Succinate ER 100 MG Tablet Extended Release 24 HourOral; Duration: 90 DaysActive Sennosides-Docusate Sodium 8.6-50 MG Tablet1 tablet as needed Orally Twice a day ActiveMetoprolol Succinate ER 50 MG Tablet Extended Release 24 HourOral; Duration: 90 DaysActivePercocet 5-325 MG Tablet1 tablet as needed Orally every 6 hrsActivetiZANidine HCl 4 MG TabletOral; Duration: 90 DaysActiveMeloxicam 7.5 MG Tablet1 tablet Orally Once a dayActiveZolpidem Tartrate 10 MG TabletOral; Duration: 90 DaysActiveAcetaminophen 325 MG Tablet1 tablet as needed Orally every 6 hrsActive Social History Section Notes: Patient is a nonsmoker. No alcohol use. Patient is a nonsmoker. No alcohol use. Patient is a nonsmoker. No alcohol use. Patient is a nonsmoker. No alcohol use. Encounters Encounter Location Date Provider Diagnosis [address] [address] 01/10/2025 Kaden Zepeda Closed bimalleolar fracture of left ankle, initial encounter S82.842A and Syndesmotic disruption of left ankle, initial encounter S93.432A [address] [address] 01/24/2025 Kaden Zepeda Closed displaced bimalleolar fracture of left ankle, initial encounter S82.842A ; Syndesmotic disruption of left ankle, initial encounter S93.432A and Closed displaced fracture of medial malleolus of left tibia, initial encounter S82.52XA [address] [address] 02/17/2025 Kaden Zepeda Closed displaced bimalleolar fracture of left ankle, initial encounter S82.842A ; Closed displaced fracture of medial malleolus of left tibia, initial encounter S82.52XA and Syndesmotic disruption of left ankle, initial encounter S93.432A [address] [address] 03/31/2025 Kaden Zepeda Closed displaced bimalleolar fracture [...] will require ~1 week more at the [facility] to ensure she is safe and stable [...] which she (or ) will need to parts picker from medicalsupply provider prior to next appointment - xray order sent to [facility] which she is to obtain prior to f/u appointment - Follow up in 2 weeks for xray review 03/31/2025losed displaced bimalleolar fracture of left ankle, initial [...] of left ankle, initial encounter (ICD-10 - S93.432A)01/24/2025losed displaced fracture of medial malleolus of left tibia, initial encounter (ICD-10 - S82.52XA)02/17/2025Syndesmotic disruption of left ankle, initial encounter (ICD-10 - S93.432A) Plan Of Treatment Next Appt Details Provider Name:Kaden garrido, 06/02/2025 10:30:00 AM, [address] [facility], [facility] [address], [address], [place], [address], Insurance Providers Payer Name Payer Address Payer Phone Subscriber Number Group Number Insured Name Patient Relationship to Insured Coverage Start Date Coverage End Date Medicare of [place] J[address] [place], [place] [address] [phone] [id number] Eva Walker - patient is the insured[facility] Medicare SupplementPO [address] [address] [place], [place] [id number], BonnieSelf - patient is the insured Medical (General) History Medical History History ICD Code Glaucoma Heart DiseaseHypertensionOsteopeniaInsomniaSurgical History Surgery Date(Month/Year) Total Left Hip ORIF Ankle RightLeft ShoulderBilateral Knee ReplacementsORIF Ankle [id number]
--- OUTSIDE RECORDS SUMMARY | 2025-04-12 14:53 | XMS_ITS | Encounter Summary ---
Author Organization [facility] Address [address] [place] [address] Care Team Providers Care Bird Cage Assembler Name Role Phone Roc Steele MD Primary Care Provider [phone] Roc Steele MD Unavailable [phone] Luis Felipe Dugan DO Unavailable [phone] Gladis Laird LPN Unavailable Encounter Details DateTypeDepartmentCare Team (Latest Contact Info)Idgmpehcuim05/08/2025Patient Outreach [facility] [address] [place] [address] Gladis Laird LPN [address] [place] [address] Social History Tobacco UseTypesPacks/DayYears UsedDateSmoking Tobacco: NeverSmokeless [...] relatives?Once a week11/25/2022How often do you attend uatsdin or adventist services?Never11/25/2022o you belong to any clubs or organizations such as uatsdin groups, unions, fraternal or athletic groups, or school groups?No11/25/2022How often do you attend meetings of the clubs or organizations you belong to?Never11/25/2022re you , , , , never , or living with a partner?Xoaziuk9311/25/2022 AUDIT-CAnswerDate RecordedQ1: How often do you have [...] hard at all11/25/2022HQ-2 AnswerDate RecordedPatient Health Questionnaire-2 [id number] view hospital [place] of Occupational Health - Occupational Stress QuestionnaireAnswerDate RecordedDo you feel stress - tense, restless, nervous, or anxious, or unable to sleep at night because yourmind is troubled all the time - these days?Only a yajbvs9911/25/2022Exercise Vital SignAnswerDate RecordedOn average, how many days [...] steady place to sleep or slept in avocaelter (including now)?No11/25/2022CommentsUnknownSex and Gender InformationValueDate RecordedSex Assigned at BirthNot on fileLegal SexFemale 07/13/2022 7:20 PM EDTGender IdentityNot on fileSexual OrientationNot on file documented as of this encounter Progress Notes * Gladis Laird LPN - 04/07/2025 12:29 PM EST Images from the original note were not included. Spoke to pt for monitoring. Pt states she is doing well. She shares that she hopes to get driving privileges back soon. Pt does not like relying on people to get her to and from appts, but is thankful to have the help. Pt states OT went well this morning and she has PT coming this afternoon. Has appt scheduled 04/10 to discuss medications with PCP. Denies any needs or concerns at this time. Flowsheet Row Patient [facility] with Gladis Laird LPN Week Number Call Week 4 Call Was patient contacted successfully? Yes Have you had any urgent care/ED/Hospital visits since discharge? Yes If yes, where did you go? Emergency Room What was the reason? fall Any medication changes since last contact? No [...] Plan of Treatment DateTypeDepartmentCare Team (Latest Contact Info)Esgurhxllhf35/05/2026 1:40 PM ESTProcedure Visit [facility] [address] [place] [id number] Alex Tam DPM [address] [facility] [address] [place] [address] documented as of this encounter Visit Diagnoses Diagnosis Benign essential hypertension- Primary Essential hypertension, benign Hyperlipidemia, unspecified hyperlipidemia type documented in this encounter Additional Health Concerns AssessmentNoted TimePHQ-9 Depression Total Score: 3:00 PM EST documented as of this encounter Care Teams Team MemberRelationshipSpecialtyStart DateEnd Date Roc Steele MD [address] [facility] [address] [place] [address] PCP - GeneralInternal Medicine09/28/22 Roc Steele MD [address] [place] [address] PCP - ACO Reach08/30/23 Luis Felipe Dugan DO [address] [place] [address] Referring NlaqcuwmbXhvmbmtvk10/7/24 Gladis Laird LPN [address] [facility] [address] [place] [address] 07/19/24documented as of this encounter
--- OUTSIDE RECORDS SUMMARY | 2025-04-12 14:54 | XMS_ITS | Encounter Summary ---
Author Organization [facility] Address [address] [place] [address] Care Team Providers Care Administration Intern Name Role Phone Roc Steele MD Primary Care Provider [phone] Roc Steele MD Unavailable [phone] Luis Felipe Dugan DO Unavailable [phone] Gladis Laird LPN Unavailable Encounter Details DateTypeDepartmentCare Team (Latest Contact Info)Lkzeczozxhu77/11/2025Travel Social History Tobacco UseTypesPacks/DayYears UsedDateSmoking Tobacco: NeverSmokeless [...] of sexual activity by your partner or ex-partner?No07/28/2023Social Connection and Isolation Panel AnswerDate RecordedIn a typical week, how many times do you talk on the phone with family, friends, or neighbors?More than three times a week11/25/2022How often do you get together with friends or relatives?Once a week11/25/2022How often do you attend restorationist or druze services?Never11/25/2022o you belong to any clubs or organizations such as restorationist groups, unions, fraternal or athletic groups, or school groups?No11/25/2022How often do you attend meetings of the clubs or organizations you belong to?Never11/25/2022re you , , , , never , or living with a partner?Zrthxid0811/25/2022 AUDIT-CAnswerDate RecordedQ1: How often do you have [...] hard at all11/25/2022HQ-2 AnswerDate RecordedPatient Health Questionnaire-2 [id number]. [facility] [place] of Occupational Health - Occupational Stress QuestionnaireAnswerDate RecordedDo you feel stress - tense, restless, nervous, or anxious, or unable to sleep at night because yourmind is troubled all the time - these days?Only a mpbdev7611/25/2022Exercise Vital SignAnswerDate RecordedOn average, how many days [...] you didn't have money to get more.Never true3PRAPARE - TransportationAnswerDate RecordedIn the past 12 months, [...] 1:06 PM [place] Patient Health Questionnaire-2 [id number] 1:06 PM [place] documented as of this encounter Plan of Treatment DateTypeDepartmentCare Team (Latest Contact Info)Uxvohutfatp60/05/2026 1:40 PM ESTProcedure Visit [facility] [address] [facility] [address] [place] [address] Alex Tam DPM [address] [facility] [address] [place] [address] documented as of this encounter Goals GoalPatient Goal TypeAssociated ProblemsRecent ProgressPatient-Stated?Author Help patient manage antidepressant medication Care PlanPatient on antidepressant monitoring GAURAV DodsonAdocumented as of this encounter Visit Diagnoses Not on filedocumented in this encounter Additional Health Concerns Active ProblemsNoted DateDiagnosed DatePatient on antidepressant monitoring plan 04/10/2025ssessmentNoted TimePHQ-9 Depression Total Score: 3:00 PM ESTdocumented as of this encounter Care Teams Team MemberRelationshipSpecialtyStart DateEnd Date Roc Steele MD [address] [place] [address] PCP - GeneralInternal Medicine09/28/22 Roc Steele MD [address] [place] [address] PCP - ACO Reach08/30/23 Luis Felipe Dugan DO [address] [place] [address] Referring QlatoqmtgQmuiugtkm74/7/24 Gladis Laird LPN [address] [facility] [address] [place] [address] 07/19/24documented as of this encounter
--- OUTSIDE RECORDS SUMMARY | 2025-04-12 14:54 | XMS_ITS | Clinical Summary ---
Author Organization [facility] Address [address] [place] [address] Care Team Providers Care Order Picker/Assembler Name Role Phone Roc Steele MD Primary Care Provider Roc Steele MD Unavailable [phone] Luis Felipe Dugan DO Unavailable [phone] Gladis Laird LPN Unavailable Allergies Active AllergyReactionsCriticalityNoted MrxyCkwtmfcsAvzpitomsnjdm99/02/2023 Other Reaction(s): Unknown Pdiwplxacrrqmm80/02/2023 Other Reaction(s): Unknown DplnnkudlqqaEfkyxnkuskwAmfk17/02/2023 Other Reaction(s): Tongue Swelling ; Trouble Breathing Yinxvdhrrpaup67/02/2023 Other Reaction(s): Unkown Medications MedicationSigDispense QuantityRefillsLast FilledStart [...] (20 mg) by mouth Daily 90 tablet 303/265016/6Active Additional Information Patient taking differently:20 mg OralAs needed, as needed, Reported on 04/10/2025 fexofenadine (Radha) 180 MG tablet Indications:Seasonal allergic [...] BY MOUTH ONCE DAILY 90 tablet 5Active calcium citrate 315 mg + D2 6.25 mcg tablet Take 315 mg by mouth in the morning.Active magnesium oxide (Mag-Ox) 400 MG tablet Take 400 mg by mouth Daily5Active meloxicam (Mobic) 7.5 MG tablet Take 7.5 mg by mouth Daily5Active metoprolol succinate XL (Toprol-XL) 100 MG 24 hr tablet Take 100 mg by mouth in the morning and 100 mg before bedtime.5Active ALPRAZolam (Xanax) 0.25 MG tablet Indications:AnxietyTake 1 tablet (0.25 mg) by mouth 2 (two) times a day as needed for anxiety 60 tablet 5Active isosorbide mononitrate ER (Imdur) 30 MG 24 hr tablet Oral; Duration: 90 Days5Active zolpidem (Ambien) 10 MG tablet Indications:Primary insomniaTAKE 1 TABLET BY MOUTH AT BEDTIME 90 tablet 5Active escitalopram (Lexapro) 10 MG tablet Indications:AnxietyTake 1 tablet (10 mg) by mouth Daily 10 tablet 5Active hydrALAZINE (Apresoline) 25 MG tablet Indications:Benign essential hypertensionTake 1 tablet (25 mg) by mouth in the morning and 1 tablet (25 mg) before bedtime. 20 tablet 5Active alendronate (Fosamax) 70 MG tablet Indications:Age-related osteoporosis without current pathological fractureTake 1 tablet (70 mg) by mouth every 7 (seven) days Take in the morning with a full glass of water,on an empty stomach, and do not take anything else by mouth or lie down for the next 30 min. 12 tablet /ctive HYDROcodone-acetaminophen ([place]) 5-325 MG tablet Indications:Lumbosacral spondylosis without myelopathyTake 1 tablet by mouth every 4 (four) hours if needed for moderate pain or severe pain 180 tablet ctive doxycycline (Vibramycin) 100 MG capsule Indications:Acute non-recurrent pansinusitisTake 1 capsule (100 mg) by mouth in the morning and 1 capsule (100 mg) before bedtime. Do all this for 10 days. Take with at least 8 ounces (large glass) of water, do not lie down for 30 minutes after. 20 capsule /5Active zolpidem (Ambien) 10 MG tablet Indications:Primary insomniaTAKE 1 TABLET BY MOUTH AT BEDTIME 90 tablet Discontinued Prolia 60 MG/ML solution prefilled syringe Indications:Age-related osteoporosis without current pathological fractureINJECT 60MG SUBCUTANEOUSLY ONCE DIRECTED 1 mL Discontinued(Therapy completed) escitalopram (Lexapro) 10 MG tablet Take 10 mg by mouth DailyDiscontinued(Reorder) hydrALAZINE (Apresoline) 25 MG tablet Take 25 mg by mouth in the morning and 25 mg before bedtime./03/2025 Discontinued(Reorder) HYDROcodone-acetaminophen ([place]) 5-325 MG tablet Indications:Lumbosacral spondylosis without myelopathyTake 1 tablet by mouth every 4 (four) hours if needed for moderate pain or severe pain 180 tablet Discontinued(Reorder) hydrALAZINE (Apresoline) 25 MG tablet Indications:Benign essential hypertensionTake 1 tablet (25 mg) by mouth in the morning and 1 tablet (25 mg) before bedtime. 200 tablet Discontinued(Reorder) escitalopram (Lexapro) 10 MG tablet Indications:AnxietyTake 1 tablet (10 mg) by mouth Daily 60 tablet Discontinued(Reorder) Active Problems ProblemNoted DateDiagnosed DateToe pain, right06/15/2023llergic rhinitis 09/30/20222667Ncithqf72/02/2023enign essential tcwmgdvqiyfm40/02/2023reast jgduieal40/02/5788Fgsudaoplhyl60/02/2023hronic cough09/30/2022ecreased estrogen level09/30/2022ifficulty avpesxp9409/30/2022iverticulosis of colon 09/30/20220111Pejik23/02/2023resence of other bone and tendon jtcuefrh48/02/2023 Gastroesophageal reflux dxqoxap1509/30/20222478Tqfkxotqbayglo70/02/2023IGT (impaired glucose tolerance)09/30/20223245Vzreecwj46/02/2023Exudative age-related macular degeneration of left eye with active choroidal lagdmqlrllwrcfbbnz72/02/2023 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 09/30/2022Internal derangement of right ailtwucu72/02/2023Loss of smell 09/30/2022Loss of taste09/30/2022Low back pain09/30/2022Lumbosacral spondylosis without aaifbwfenn50/02/2023Morbid obesity due to excess oywwafdc95/02/2023 Obstructive sleep apnea09/30/2022Occlusion of carotid artery without cerebral pllgmbtour28/02/2023egenerative joint disease involving multiple joints 09/30/20225482Puvrzvftrqwack90/02/6199Xeueomqtgy33/02/2023aroxysmal supraventricular tebdxhdkxqk12/02/2023rimary osteoarthritis of right hip 09/30/2022Recurrent falls09/30/2022Vitamin D ewrhxydnom74/02/2023 Encounters DateTypeDepartmentCare DlqzZohjnpuelic74/11/2025 1:00 PM ESTOffice Visit [facility] [address] [place] [address] [place] [address] Aarti Castillo, SUPERVISOR FISHING Benign essential hypertension (Primary Dx); Anxiety; Age-related osteoporosis without current pathological fracture; Lumbosacral spondylosis without myelopathy; Acute non-recurrent ijpfazomshop68/11/2025Bamboo flowsheet [facility] [address] [place] [address] Aarti Castillo, DEISY 04/10/20257582Ufyplz10/08/2025Patient Outreach [facility] [address] [place] [address] Gladis Laird LPN 03/31/2025Patient Outreach [facility] [address] [place] [address] Gladis Laird LPN 03/28/2025linisync Result Encounter [facility] External Department Unsolicited Provider, Generic External Data 03/26/2025Orders Only [facility] [address] [facility] [address] [place] [phone] Aarti Castillo, DEISY Suztirx6403/24/2025Patient Outreach [facility] [address] [place] [address] Gladis Laird LPN 03/19/2025Refill [facility] [address] [facility] [address] [place] [address] Aarti Castillo, DEISY Primary sjxowcrw42/17/2025[facility] [address] [place] [address] Gladis Laird TOWER CLIMBER 03/13/2025 2:40 PM ESTProcedure Visit [facility] [address] [place] [phone] Alex Tam DPRen Pain due to onychomycosis of toenails of both feet (Primary Dx)03/13/2025 1:30 PM ESTOffice Visit [facility] [address] [address] [place] [address] Aarti Castillo, DEISY Closed fracture of left ankle, sequela (Primary Dx); Anxiety; Lumbosacral spondylosis without jqekslsqkd33/13/2025amboo flowsheet [facility] [address] [facility] [address] [place] [address] Aarti Castillo NP 03/13/20258077Kzzlit83/10/2025Patient Outreach [facility] [address] [place] [address] Doris Longo, TOWER CLIMBER 03/07/2025Patient Outreach [facility] [address] [place] [address] LongoObey trianaia, TOWER CLIMBER 02/28/2025Patient Outreach [facility] [address] [place] [address] Doris Longo, TOWER CLIMBER 02/24/2025Patient Outreach [facility] [address] [place] [phone] Doris Longo, TOWER CLIMBER 02/18/2025Patient Outreach [facility] [address] [place] [address] Gladis Laird, TOWER CLIMBER 5Clinisync Result Encounter [facility] External Department Unsolicited Provider, Generic External Data 02/13/2025Patient Outreach [facility] [address] [place] [address] Doris Longo, TOWER CLIMBER 02/03/2025Patient Outreach [facility] [address] [place] [address] Obey Longoia, TOWER CLIMBER 01/27/2025Patient Outreach [facility] [address] [place] [address] Doris Longo, TOWER CLIMBER 5Clinisync Result Encounter [facility] External Department Unsolicited Provider, Generic External Data 01/15/2025Patient Outreach [facility] [address] [place] [address] Doris Longo, TOWER CLIMBER 01/14/2025Refill [facility] [address] [facility] [address] [place] [address] Aarti Castillo, SUPERVISOR FISHING Age-related osteoporosis without current pathological fracturefrom Last 3 Months Immunizations ImmunizationAdministration DatesNext DueInfluenza, High Dose Seasonal, Preservative Free01/31/2018,01/25/2017Influenza, High-dose Seasonal, Quadrivalent, Preservative Free03/05/2024,03/01/2023,03/23/2022Influenza, Seasonal, Quadrivalent, Wxjazsqyih39/30/2021Influenza, injectable, quadrivalent 02/02/2016Influenza, injectable, quadrivalent, preservative free01/30/2020 Influenza, seasonal, intradermal, preservative free01/30/2015,02/07/2014Moderna Bivalent Booster Lfgejptamls40/01/2022Pneumococcal Conjugate PCV Pneumococcal Polysaccharide BKFC0332Zoster, Esdtfknqlnr98/28/2020, 05/16/2019Zoster, live01/17/2012 Family History Medical HistoryRelationNameCommentsAortic aneurysmFatherAortic [...] relatives?Once a week11/25/2022How often do you attend yazidism or quaker services?Never11/25/2022o you belong to any clubs or organizations such as yazidism groups, unions, fraternal or athletic groups, or school groups?No11/25/2022How often do you attend meetings of the clubs or organizations you belong to?Never11/25/2022re you , , , , never , or living with a partner?Bnwzhlt9511/25/2022 AUDIT-CAnswerDate RecordedQ1: How often do you have [...] hard at all11/25/2022HQ-2 AnswerDate RecordedPatient Health Questionnaire-2 Pqhqr569Finuintah [facility] [place] of Occupational Health - Occupational Stress QuestionnaireAnswerDate RecordedDo you feel stress - tense, restless, nervous, or anxious, or unable to sleep at night because yourmind is troubled all the time - these days?Only a zwsqfn4611/25/2022Exercise Vital SignAnswerDate RecordedOn average, how many days [...] steady place to sleep or slept in [place] (including now)?No11/25/2022CommentsUnknownSex and Gender InformationValueDate RecordedSex Assigned at BirthNot on fileLegal SexFemale 07/13/2022 7:20 PM EDTGender IdentityNot on fileSexual OrientationNot on file Last Filed Vital Signs Vital SignReadingTime TakenCommentsBlood Awuzgcov725/7804/10/2025 1:18 PM EST Vpdls690804/10/2025 1:18 PM ESTTemperature--Respiratory Pxyy495706/11/2024 1:18 PM ESTOxygen Nkwfrsgvsd82%04/10/2025 1:18 PM ESTInhaled Oxygen Concentration-- Vuollh853 kg (268 lb)04/10/2025 1:18 PM VLVJespdl025.5 cm (5' 2 )04/10/2025 1:18 PM ESTBody Mass Index49.02106/11/2024 1:18 PM EST Plan of Treatment DateTypeDepartmentCare Team (Latest Contact Info)Yqhodckgmah16/05/2026 1:40 PM ESTProcedure Visit [facility] [address] [facility] [address] [place] [address] Alex Tam, DPM [address] [facility] [address] [place] [address] Health MaintenanceDue DateLast DoneCommentsCOVID-19 Vaccine ( season) 502/12/2023, 03/31/2022, 02/03/2021, Additional history exists QabiibuxkgbCcvpdwomdoxg54/03/2013Colorectal Cancer ScreeningDiscontinued Pneumococcal Vaccine: 65+ OpkhbZodoyiqlq61/10/2015, 12/11/2013Influenza Vaccine Ufjwuwmaa92/14/2025, 03/05/2024, 03/01/2023, Additional history existsCT ColonographyDiscontinuedFIT-DNADiscontinuedFITDiscontinuedFOBTDiscontinued SigmoidoscopyDiscontinued Goals GoalPatient Goal TypeAssociated ProblemsRecent ProgressPatient-Stated?Author Help patient manage antidepressant medication Care PlanPatient on antidepressant monitoring PAPO [place] Procedures Procedure NamePriorityDate/TimeAssociated DiagnosisCommentsXR ANKLE LT MIN 3V 03/28/2025 10:26 AM EST XR ANKLE LT MIN 3V1 1:59 PM EDT XR ANKLE LT MIN 3V01/23/2025 1:46 PM EDT DTNHYVPEXSJMwhrtxk32/03/2013 12:00 PM EDT from Last 3 Months or Most Recently Relevant to Health Maintenance Results * XR ANKLE LT MIN 3V (03/28/2025 10:26 AM EST) Only the most recent of3 resultswithin the time period is included. Anatomical RegionLateralityModalityOtherSpecimen (Source)Anatomical Location / LateralityCollection Method / VolumeCollection TimeReceived Time03/28/2025 10:26 AM EST Narrative 03/28/2025 10:28 AM EST [facility] ?[address] ? [place] [address] ?XRay Report ? Signed ? Patient: GEMA,USHA K ?MR#: [id number] ?? : 1945 ?Acct:[id number] ?? Age/Sex: 79 / F ?ADM Date: /28/25 ?? Loc: LAB ? Attending Dr: Kelly Zepeda D.P.M. ? Ordering Physician: Kelly Zepeda D.P.M. ?? Date of Service: 03/28/25 ?? Procedure(s): XR ankle LT min 3V ?? Accession Number(s): [id number] ? cc: ROC STEELE ; Kelly Zepeda D.P.M. ? [facility] ? [address] ? [place] [address] ? Patient Name: ?? USHA WALKER ? MRN: [facility]:[id number] ? date: 1945 ?Sex: F ?? Assigned Patient Location: LAB ?? Current Patient Location: LAB ?? Accession/Order Number: [id number] ?? Exam Date: 03/28/2025 ??10:06 ?Report Date: 03/28/2025 ??10:26 ? At the request of: ?? KELLY ??AURELIA ??DPM ? Procedure: ??XR ankle LT min 3V ? LEFT ANKLE - 3 views ? CLINICAL DATA: Left ankle pain since fall yesterday. ? COMPARISON: 02/17/2025 ? AP, lateral and oblique views ??were obtained. ??There is a lateral plate with ?? multiple screws along the distal fibula. ??Three of the screws extend into the ?? tibia. ??The underlying distal fibular fracture is unchanged. ??A mildly ?? distracted fracture at the base of the medial malleolus is again noted. ??There ?? is no new fracture or dislocation. ??The talar dome is intact. ??A plantar ?? calcaneal spur is seen. ??Mild soft tissue swelling is visualized. ? XR/XR ankle LT min 3V ?? IMPRESSION: ? SIMILAR ANKLE FRACTURES. ? NO ACUTE BONY INJURY. ? Impression dictated by: Sushila Zeng M.D. ??03/28/2025 10:26 AM ? Dictation Location: [facility]--02 ? Electronically authenticated by: [id number] ??Y ?? Date: 03/28/2025 ??10:26 ? Dictated By: ?Sushila Zeng M.D. ? Signed By: ?03/28/25 1028 ? DD/ 1026 ? TD/TT: ? Wire Dropper: Procedure Note Radiology, Radiologist, - 03/28/2025 [place] [address] XRay Report Signed Patient: USHA WALKER KMR#: [id number] : 1945cct:[id number] Age/Sex: 79 / FADM Date: 03/28/25 Loc: LAB Attending Dr: Kelly Zepeda D.P.M. Ordering Physician: Kelly Zepeda D.P.M. Date of Service: 03/28/25 Procedure(s): XR ankle LT min 3V Accession Number(s): [id number] cc: ROC STEELE ; Kelly Zepeda D.P.M. The [place] [id number] Patient Name: USHA WALKER MRN: [id number] date: 1945 Sex: F Assigned Patient Location: LAB Current Patient Location: LAB Accession/Order Number: [id number] Exam Date: 03/28/2025 10:06 Report Date: 03/28/2025 10:26 At the request of: KELLY ZEPEDA DPRen Procedure: XR ankle LT min 3V LEFT ANKLE - 3 views CLINICAL DATA: Left ankle pain since fall yesterday. COMPARISON: 02/17/2025 AP, lateral and oblique views were obtained. There is a lateral platewith multiple screws along the distal fibula. Three of the screws extend intothe tibia. The underlying distal fibular fracture is unchanged. A mildly distracted fracture at the base of the medial malleolus is again noted.There is no new fracture or dislocation. The talar dome is intact. A plantar calcaneal spur is seen. Mild soft tissue swelling is visualized. XR/XR ankle LT min 3V IMPRESSION: SIMILAR ANKLE FRACTURES. NO ACUTE BONY INJURY. Impression dictated by: Sushila Zeng M.D. 03/28/2025 10:26 AM Dictation Location: [place] [address] Electronically authenticated by: [id number] Y Date: 0:26 Dictated By: Sushila Zeng M.D. Signed By:03/28/25 1028 DD/ 1026 TD/TT: Wire Dropper: Authorizing ProviderResult TypeResult StatusGeneric External Data Provider CL[facility]IS[facility]NC IMAGINGFinal Result * Colonoscopy (10/31/2012 12:00 PM EDT)Anatomical RegionLateralityModality EndoscopySpecimen (Source)Anatomical Location / LateralityCollection Method / VolumeCollection TimeReceived Time10/31/2012 12:00 PM EDT Narrative 10/31/2012 12:00 PM EDT PERFORMED AT [facility] LOCATION:[id number] DIVERTICULOSIS Procedure Note CONVERSION, GENERIC - 09/15/2022 PERFORMED AT [facility] LOCATION:[id number] DIVERTICULOSIS Authorizing ProviderResult TypeResult StatusDalaura Steele MDENDOSCOPY PROCEDURE ORDERABLESFinal Result from Last 3 Months or Most Recently Relevant to Health Maintenance Additional Health Concerns Active ProblemsNoted DateDiagnosed DatePatient on antidepressant monitoring plan 04/10/2025 Insurance Care Teams Team MemberRelationshipSpecialtyStart DateEnd Date Roc Steele MD [address] [facility] [address] [place] [address] PCP - GeneralInternal Medicine09/28/22 Roc Steele MD [address] [facility] [address] [place] [address] PCP - ACO Reach08/30/23 Luis Felipe Dugan DO [address] [place] [address] Referring OappzukhuPdhwhucrd09/7/24 Gladis Laird LPN [address] [address] 07/19/24
--- OUTSIDE RECORDS SUMMARY | 2025-04-12 14:54 | XMS_ITS | Clinical Summary ---
Author Organization [facility] Address [address] [place] [address], [address] [place] [address] Care Team Providers Care Software Development Advisor Name Role Phone Unavailable Primary Care Provider Unavailabl e Social History Tobacco UseTypesPacks/DayYears UsedDateSmoking Tobacco: Never Assessed CommentsUnknownSex and Gender InformationValueDate RecordedSex Assigned at Not on fileLegal IybKmjvng67/10/2013 4:42 PM ESTGender IdentityNot on fileSexual OrientationNot on file Plan of Treatment Not on file
--- OUTSIDE RECORDS SUMMARY | 2025-04-12 14:54 | XMS_ITS | Encounter Summary ---
Author Organization [facility] Address [address] [place] [address] Care Team Providers Care Nurse'S Companion Name Role Phone Roc Steele MD Primary Care Provider [phone] Roc Steele MD Unavailable [phone] Luis Felipe Dugan DO Unavailable [phone] Gladis Laird LPN Unavailable Encounter Details DateTypeDepartmentCare Team (Latest Contact Info)Xfgtkrxyrri09/11/2025Bamboo flowsheet [facility] [address] [place] [address] [place] [address] Aarti Castillo, CINDER PIT CRANE OPERATOR [address] [place] [address] [place], [place] [phone] Social History Tobacco UseTypesPacks/DayYears UsedDateSmoking Tobacco: NeverSmokeless [...] relatives?Once a week11/25/2022How often do you attend caodaism or jehovah's witness services?Never11/25/2022o you belong to any clubs or organizations such as caodaism groups, unions, fraZeroCater or athletic groups, or school groups?No11/25/2022How often do you attend meetings of the clubs or organizations you belong to?Never11/25/2022re you , , , , never , or living with a partner?Mrhavfb6111/25/2022 AUDIT-CAnswerDate RecordedQ1: How often do you have [...] hard at all11/25/2022HQ-2 AnswerDate RecordedPatient Health Questionnaire-2 Xdcvl502Finogden [facility] [place] of Occupational Health - Occupational Stress QuestionnaireAnswerDate RecordedDo you feel stress - tense, restless, nervous, or anxious, or unable to sleep at night because yourmind is troubled all the time - these days?Only a zljmuy5911/25/2022Exercise Vital SignAnswerDate RecordedOn average, how many days [...] Plan of Treatment DateTypeDepartmentCare Team (Latest Contact Info)Uzkkgneyqix23/05/2026 1:40 PM ESTProcedure Visit [facility] [address] [facility] 120 [place] [address] Alex Tam DPM [address] [facility] 5 [place] [address] documented as of this encounter Goals GoalPatient Goal TypeAssociated ProblemsRecent ProgressPatient-Stated?Author Help patient manage antidepressant medication Care PlanPatient on antidepressant monitoring planNoGAURAV SANDERSONAdocumented as of this encounter Visit Diagnoses Not on filedocumented in this encounter Additional Health Concerns Active ProblemsNoted DateDiagnosed DatePatient on antidepressant monitoring plan 04/10/2025ssessmentNoted TimePHQ-9 Depression Total Score: 3:00 PM ESTdocumented as of this encounter Care Teams Team MemberRelationshipSpecialtyStart DateEnd Date Roc Steele MD [address] [facility] 110 [place] [address] PCP - GeneralInternal Medicine09/28/22 Roc Steele MD [address] [facility] 110 [place] [address] PCP - ACO Reach08/30/23 Luis Felipe Dugan DO [address] [place] [address] Referring RnrwycfneMrpzxmrhl48/7/24 Gladis Laird LPN [address] [facility] [address] [place] [address] 07/19/24documented as of this encounter
--- OUTSIDE RECORDS SUMMARY | 2025-04-12 14:54 | XMS_ITS | Clinical Summary ---
Author Organization [facility] Address [address] [place] [address] Phone Care Team Providers Care Probation And Patrol Agent Name Role Phone Roc Steele MD Primary Care Provider [phone] Allergies Active AllergyReactionsCriticalityNoted DateCommentsMoxifloxacinAngioedema 07/15/20244166DskguxdsshlysNclyobc94/17/2025Sulfa (Sulfonamide Antibiotics)Unknown 07/15/2024 Medications MedicationSigDispense QuantityRefillsLast FilledStart DateEnd DateStatus HYDROcodone-acetaminophen ([place]) 5-325 mg tablet Take 1 tablet by mouth every 4 hours if needed for severe pain (7 - 10). 04/03/2024ctive pantoprazole (ProtoNix) 40 mg EC tablet Take 1 tablet (40 mg) by mouth once daily.08/08/2023ctive nortriptyline (Pamelor) 10 mg capsule Take 3 capsules (30 mg) by mouth.4Active zolpidem (Ambien) 10 mg tablet Take 1 tablet (10 mg) by mouth once daily at bedtime.5Active tiZANidine (Zanaflex) 4 mg tablet Take 1 tablet (4 mg) by mouth 3 times a day.04/16/2024ctive meloxicam (Mobic) 15 mg tablet Take 1 tablet (15 mg) by mouth once daily.Active ALPRAZolam (Xanax) 0.25 mg tablet Take 1 tablet (0.25 mg) by mouth as needed at bedtime for anxiety.Active xtjimljyplqj-Ji-beik-minerals tablet Take 1 tablet by mouth once [...] CPAP2024t high risk for falls 07/15/2024Uses roller yemtcg9207/15/2024Encounter to discuss test results 07/15/2024Never smoked lokrnnqtre99/17/2025ody mass index (BMI) 40.0-44.9, adult07/15/2024Primary ufbcparqhqbx03/17/2025arotid /17/2025 Paroxysmal supraventricular lhzundemfrq31/17/4677Fbsjznyhmvrq99/17/2025 Gastroesophageal reflux disease without euzblwsjeaa99/17/2025Mixed cszefvhrcjyxdc13/17/2025CKD (chronic kidney disease)5Abnormal EKG 5Chest ysdetzrwzo95/17/0236Qztwkqbbmnjecrr08/17/2025 Family History Medical HistoryRelationNameCommentsBrain AneurysmBrotherAortic aneurysmFather Heart failureMotherHeart failureSisterRelationNameStatusCommentsBrotherFather MotherSister Social History Tobacco UseTypesPacks/DayYears UsedDateSmoking Tobacco: NeverSmokeless Tobacco: Never Tobacco Cessation:Counseling Given: Not Answered Alcohol UseStandard Drinks/WeekCommentsNot Currently0 (1 standard drink = 0.6 oz pure alcohol)CommentsUnknownSex and Gender InformationValueDate Recorded Sex Assigned at BirthNot on fileLegal EacDlzgow00/26/2022 7:23 PM ESTGender IdentityNot on fileSexual OrientationNot on file Last Filed Vital Signs Vital SignReadingTime TakenCommentsBlood Fvpzmktq307/90011/15/2024 3:00 PM EDT Dvyor4687/18/2025 2:11 PM EDTTemperature--Respiratory Rate--Oxygen Saturation-- Inhaled Oxygen Concentration--Plaskz723 kg (262 lb)2024 2:11 PM EDTHeight 162.6 cm (5' 4 )2024 2:11 PM EDTBody Mass Index44.9711/15/2024 2:11 PM EDT Plan of Treatment DateTypeDepartmentCare Team (Latest Contact Info)Ibzogmgntor15/29/2025 1:00 PM ESTAncillary Procedure [address] [phone] 05/16/2025 2:00 PM ESTOffice Visit [address] [phone] cR Kern MD [address] [facility] [address] [place], [place] [id number] Health MaintenanceDue DateLast DoneCommentsHepatitis C Crewuhnxm93/18/1965CKD: Urine Protein Ouqvlgoeg60/18/1966DTaP/Tdap/Td Vaccines (1 - Tdap)1968 Creatinine Level, 01/20/2020Diabetes Ecdnodxcn73/01/2021 01/30/2020, 01/20/2020Potassium Level, 01/20/2020RSV High Risk: (Elderly (60+) or Population) (1 - 1-dose 75+ series)2021 Medicare Annual Wellness Visit (AWV)/10/2023, 06/29/2022, 10/14/2020, Additional history existsInfluenza Vaccine (#1)/08/2023, 03/01/2023, 03/23/2022, Additional history existsCOVID-19 Vaccine ( season)/12/2023, 03/31/20226854Ulsaaxquemmucr51/21/873095/5Bone Density Scan, 07/26/2024, 10/21/2020, Additional history existsLipid Panel3018VicrscuyhosHitvofjyvnvn49/03/2013Colorectal Cancer ScreeningDiscontinuedPneumococcal KrlfdqpYmswabdsz26/10/2015, 12/11/2013 Zoster ZxxejgxoDjzqfbiom10/28/2020, 05/16/2019, 01/17/2012CT Colonography DiscontinuedFIT-DNA (Cologuard)DiscontinuedFITDiscontinuedHIB VaccinesAged OutNo [...] Profile Hex, 6.5 X 15 Mm Case [id number] Implanted:Qty: 1 on 01/29/2020 by Micah Bird MDImplantRight: [id number] / / 5MMDescription:Converted from Care Acute. Please see archived information for full log information.Screw, Low Profile Hex, 6.5 X 25 Mm Case [id number] Implanted:Qty: 1 on 01/29/2020 by Micah Bird MDImplantRight: HipSOncology Services [id number] / / 2RGEDescription:Converted from [facility] Acute. Please see archived information for full log information.Head, Femur V40 36mm +2.5mm Biolox Delta Case [id number] Implanted:Qty: 1 on 01/29/2020 by Micah Bird MDJointRight: [id number] / / [id number]:Converted from Care Acute. Please see archived information for full log information.Stem, Femur 132d Sz 5 Accolade Ii Case [id number] Implanted:Qty: 1 on 01/29/2020 by Micah Bird MDJointRight: [id number] / / [id number]:Converted from Care Acute. Please see archived information for full log information.Shell, Trident Ii, Clusterhole, [place] 52e Case [id number] Implanted:Qty: 1 on 01/29/2020 by Micah Bird MDJointRight: [id number] / / [id number]:Converted from Care Acute. Please see archived information for full log information.Liners, Poly 36 X 10 D Trid Crossfire E Case [id number] Implanted:Qty: 1 on 01/29/2020 by Micah Bird MDJointRight: [id number] / / [id number]:Converted from [facility] Care Acute. Please see archived information for full log information. Procedures Procedure NamePriorityDate/TimeAssociated DiagnosisCommentsTRANSTHORACIC ECHO (TTE) HTADYWIZWwayqgi00/21/2025 11:39 AM EDT Paroxysmal supraventricular tachycardia Abnormal EKG Palpitations BASIC METABOLIC EVZSPSlabmeh42/01/2020 5:25 AM EDT from Last 3 Months or Most Recently Relevant to Health Maintenance Results * TRANSTHORACIC ECHO (TTE) COMPLETE (09/18/2024 11:39 AM EDT)ComponentValueRef RangeTest MethodAnalysis TimePerformed AtPathologist SignatureAV mn vsnj9kgNg SYNGOAV pk vel1.81m/sSYNGOLV Biplane EF36%SYNGOLVOT diam2.27cmSYNGOMV E/A ratio0.79SYNGOMV avg E/e' ratio26.81SYNGOLA vol index A/L44.1ml/d7YJCJAXE EF63 %SYNGORV free wall pk S'15.98cm/sSYNGOLVIDd4.66cmSYNGOAortic Valve Area by Continuity of Peak Velocity2.83sa2FYXSXTS pk hbfm09teKoZDVYOHepjjq Valve Area by Continuity of VTI1.47fh9DJZGXWL A4C EF42.7SYNGOSpecimen (Source)Anatomical Location / LateralityCollection Method / VolumeCollection TimeReceived Time 09/18/2024 10:19 AM EDT Narrative SYNGO - 09/18/2024 6:10 PM EDT ?[address], [address] [facility], [place] [address] ? TRANSTHORACIC ECHOCARDIOGRAM REPORT Patient Name: ? USHA WALKER ? Reading Physician: ?[id number] David ?IbrahimMD, FACC Study Date: ? 09/18/2024 ? Ordering Provider: ?[id number] RC ?KERN MRN/PID: ?[id number] ?Fellow: Accession#: ? [id number] ?Nurse: Date of /Age: ??1945 / 78 ?Planer Off Bearer: ?Viry Quigley ?years ? RDCS, RVT Gender Assigned at ??F ? Additional Staff: : Height: ? 162.56 cm ? Admit Date: Weight: ? 122.02 kg ? Admission Status: ? Outpatient BSA / BMI: ?2.22 m2 / 46.17 ? Department Location: ??[facility] ?kg/m2 ? [place] Blood Pressure: 124 /86 mmHg Study Type: ?TRANSTHORACIC ECHO (TTE) COMPLETE Diagnosis/ICD: Supraventricular tachycardia-I47.1; Abnormal electrocardiogram ? [ECG] [EKG]-R94.31; Palpitations-R00.2 Indication: ?Edema, HTN, Hyperlipidemia, Carotid Stenosis, CARO, CKD-Stage III, ? Morbid Obesity CPT Codes: ? Echo Complete w Full Doppler-67592 Study Detail: The following Echo studies were [...] (0.6-0.9m/s) AORTA: Asc Ao Diam 2.66 cm [id number] David Castle MD, [facility] Electronically signed on 09/18/2024 at 6:10:05 PM Final Procedure Note David Castle MD - 09/18/[address], [address] [place] [address] TRANSTHORACIC ECHOCARDIOGRAM REPORT Patient Name: USA[facility] Deal Physician: [id number] Castle MD,[facility] Study Date: 09/18/2024 Ordering Provider: [id number] KERN MRN/PID: [id number] Fellow: Nurse: Date of /Age: 8 1945 / Planer Off Bearer: David ely RDCS, RVT Gender Assigned at F Additional Staff: : Height: 162.56 cm Admit Date: Weight: 122.02 kg Admission Status: Outpatient BSA / BMI: 2.22 m2 / 46.17 Department Location: [facility] kg/m2 [place] Blood Pressure: 124 /86 mmHg Study Type: TRANSTHORACIC ECHO (TTE) COMPLETE Diagnosis/ICD: Supraventricular tachycardia-I47.1; Abnormalelectrocardiogram [ECG] [EKG]-R94.31; Palpitations-R00.2 Indication: Edema, HTN, Hyperlipidemia, Carotid Stenosis, CARO,CKD-Stage III, Morbid Obesity CPT Codes: Echo Complete w Full Doppler-08329 Study Detail: The following Echo studies were [...] (0.6-0.9m/s) AORTA: Asc Ao Diam 2.66 cm [id number] David Castle MD, FACC Electronically signed on 09/18/2024 at 6:10:05 PM Final Authorizing ProviderResult TypeResult StatusGecraig Kern [facility]CHO PROCED[facility] Final ResultPerforming OrganizationAddressCity/State/ZIP CodePhone Number SYNGO * (ABNORMAL) Basic Metabolic Panel (01/30/2020 5:25 AM EDT)ComponentValueRef RangeTest MethodAnalysis TimePerformed AtPathologist TocasjzruLplawot796(H)74 - 99 mg/dLHCA [facility] TCDFxicks240651 - 145 mmol/[facility] LABPotassium4.23.5 - 5.3 mmol/[facility] GOUChsjiflm50887 - 107 mmol/[facility] QUQOholtqvtpgi6239 - 32 mmol/[facility] LABAnion Gap8(L)10 - 20 mmol/[facility] LABUrea Qpjehpku618 - 23 mg/dLHCA [facility] LABCreatinine1.000.50 - 1.05 mg/dLHCA [facility] LABGLOMERULAR FILTRATION RATE-NON MHFJONGO85(A)>60 mL/min/1.63h2QXOYFAHCA [facility]ITAL LABGLOMERULAR FILTRATION RATE- MODCGMBG98>60 mL/min/1.15k9AOXLJWHCA [facility] LABComment: CALCULATIONS OF ESTIMATED GFR ARE PERFORMED USING THE MDRD STUDY EQUATION FOR THE IDMS-TRACEABLE CREATININE METHODS. CLIN CHEM 2007;53:766-72 Calcium8.88.6 - 10.3 mg/dLHCA [facility] LABSpecimen (Source)Anatomical Location / LateralityCollection Method / VolumeCollection TimeReceived Time 01/30/2020 5:25 AM EDT1 6:26 AM EDT Narrative Authorizing ProviderResult TypeResult StatusMatthew Nolberto Bird MDLAB BLOOD ORDERABLESFinal ResultPerforming OrganizationAddressCity/State/ZIP CodePhone Number [facility] LAB from Last 3 Months or Most Recently Relevant to Health Maintenance Insurance Care Teams Team MemberRelationshipSpecialtyStart DateEnd Roc Steele MD [address] [facility] [address] [place] [address] [facility]10/04/22
[2025-04-12 15:19] LABS: Hematocrit 46.5 % (36.0-48.0); Hemoglobin 15.8 g/dL (12.0-16.0); Immature Granulocytes Abs Auto 0.01 10^3/uL (0.00-0.03); Immature Granulocytes Pct Auto 0.1 % (0.0-0.5); Lymphocytes Absolute Auto 2.6 10^3/uL (1.2-3.8); Mean Corpuscular HGB Conc 34.0 g/dL (29.9-35.2); Mean Corpuscular Hemoglobin 32.7 pg (26.7-34.0); Mean Corpuscular Volume 96.3 fL (81.0-99.0); Platelet Count 230 10^3/uL (150-450); Red Blood Count 4.83 10^6/uL (4.20-5.40); White Blood Count 6.8 10^3/uL (4.0-11.0)
[2025-04-12 15:22] LABS: Glucose Urine UA NEGATIVE (NEGATIVE)
[2025-04-12 15:26] LABS: Anion Gap 19.3; Blood Urea Nitrogen 14.0 mg/dL (7.0-18.0); Calcium 9.4 mg/dL (8.5-10.1); Carbon Dioxide 25.7 mmol/L (21.0-32.0); Chloride 101 mmol/L (98-107); Estimated GFR (African America >60 (>=60 mL/min/1.73m^2); Estimated GFR (Non-African Ame 50 (>=60 mL/min/1.73m^2); Glucose 86 mg/dL (74-106); Potassium 4.0 mmol/L (3.5-5.1); Sodium 142 mmol/L (136-145)
[2025-04-12 15:32] LABS: SARS-CoV-2 Ag NEGATIVE (NEGATIVE)
[2025-04-12 15:34] LABS: Cast Seen? SEEN #/LPF (NONE SEEN); Crystals Seen? Seen #/HPF (None Seen); Urine Culture Indicated NO
[2025-04-12 15:58] LABS: NT Pro B Type Natriuretic Pept 1743.0 pg/mL (<=1800.0)
[2025-04-12] MEDS: FUROSEMIDE 40 MG/4 ML VIAL IVP (16:48)
[2025-04-12] MEDS: HYDRALAZINE HCL 20 MG/ML VIAL 10 MG IVP (18:25)
[2025-04-12] MEDS: ISOSORBIDE MONONITRATE 30 MG TAB.ER.24H PO (18:26)
[2025-04-12] MEDS: POTASSIUM CHLORIDE 10 MEQ ER TABLET 20 MEQ PO (18:27)
[2025-04-12] MEDS: METOPROLOL TARTRATE 50 MG TABLET PO (21:44)
[2025-04-12] MEDS: GABAPENTIN 300 MG CAPSULE PO (21:44)
[2025-04-12] MEDS: ESCITALOPRAM 10 MG TABLET PO (21:44)
[2025-04-13] VITALS (64 sets, daily range): BP systolic 95–168; BP diastolic 65–114; PULSE 62–172; TEMP 36.6–37.2; O2SAT 90–96
--- NOTE | 2025-04-13 01:45 | ECG_ITS ---
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 Measurements Intervals [place] Rate: 153 P: -35631 CT: -04464 QRS: -35 QRSD: 100 T: 157 QT: 306 QTc: 393 Interpretive Statements 88550 Atrial fibrillation with rapid ventricular response [address] depression, possible subendocardial injury or digitalis effect 5211 Minimal voltage criteria for LVH, may be normal variant 7200 Abnormal left axis deviation 8003 Consistent with pulmonary disease 9150 abnormal ECG Compared to ECG 04/12/2025 14:42:40 Possible ischemia now present Left ventricular hypertrophy now present Left-axis deviation now present Sinus rhythm no longer present Ventricular premature complex(es) no longer present Right-axis deviation no longer present Electronically Signed On 04-13-2025 10:36:00 EST by SAUNDRA MCCULLOUGH M.D.
[2025-04-13] MEDS: DIGOXIN 500 MCG/2 ML AMPUL 250 MCG IV ×2 (02:22→08:10)
[2025-04-13] MEDS: DILTIAZEM HCL 25 MG/5 ML VIAL 10 MG IV (02:22)
[2025-04-13] MEDS: ENOXAPARIN SODIUM 100 MG/ML SYRINGE SUBQ ×2 (02:42→21:05)
[2025-04-13 07:04] LABS: Hematocrit 47.7 % (36.0-48.0); Hemoglobin 15.9 g/dL (12.0-16.0); Immature Granulocytes Abs Auto 0.02 10^3/uL (0.00-0.03); Immature Granulocytes Pct Auto 0.2 % (0.0-0.5); Lymphocytes Absolute Auto 2.6 10^3/uL (1.2-3.8); Mean Corpuscular HGB Conc 33.3 g/dL (29.9-35.2); Mean Corpuscular Hemoglobin 32.3 pg (26.7-34.0); Mean Corpuscular Volume 96.8 fL (81.0-99.0); Platelet Count 261 10^3/uL (150-450); Red Blood Count 4.93 10^6/uL (4.20-5.40); White Blood Count 9.1 10^3/uL (4.0-11.0)
[2025-04-13 07:23] LABS: Alanine Aminotransferase 17 U/L (14-59); Albumin Globulin Ratio 0.9; Albumin Level 3.7 g/dL (3.4-5.0); Alkaline Phosphatase 110 U/L (46-116); Anion Gap 17.2; Aspartate Amino Transferase 35 U/L (15-37); Blood Urea Nitrogen 15.0 mg/dL (7.0-18.0); Calcium 9.2 mg/dL (8.5-10.1); Carbon Dioxide 25.3 mmol/L (21.0-32.0); Chloride 102 mmol/L (98-107); Cholesterol 172 mg/dL (<=200); Estimated GFR (African America 53 (>=60 mL/min/1.73m^2); Estimated GFR (Non-African Ame 44 (>=60 mL/min/1.73m^2); Globulin 4.1 g/dL; Glucose 102 mg/dL (74-106); HDL Cholesterol 42 mg/dL (40-60); Magnesium 1.9 mg/dL (1.8-2.4); Potassium 3.5 mmol/L (3.5-5.1); Sodium 141 mmol/L (136-145); Total Protein 7.8 g/dL (6.4-8.2); Triglycerides 83 mg/dL (<=150); VLDL CHOLESTEROL 16.6 mg/dL
--- NOTE | 2025-04-13 08:00 | ECG_ITS ---
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 Measurements Intervals [place] Rate: 82 P: 22 UT: 146 QRS: -34 QRSD: 108 T: 10 QT: 396 QTc: 434 Interpretive Statements 1100 Sinus rhythm 5233 Voltage criteria for LVH 7200 Abnormal left axis deviation 8003 Consistent with pulmonary disease 9150 abnormal ECG Compared to ECG 04/13/2025 01:45:02 Atrial fibrillation no longer present ST (T wave) deviation no longer present Possible ischemia no longer present Electronically Signed On 04-13-2025 10:36:32 EST by SAUNDRA MCCULLOUGH M.D.
[2025-04-13] MEDS: METOPROLOL TARTRATE 50 MG TABLET PO ×2 (08:08→21:06)
[2025-04-13] MEDS: GABAPENTIN 300 MG CAPSULE PO ×2 (08:08→21:06)
[2025-04-13] MEDS: ISOSORBIDE MONONITRATE 30 MG TAB.ER.24H PO (08:08)
[2025-04-13] MEDS: CETIRIZINE HCL 10 MG TABLET PO (08:09)
[2025-04-13] MEDS: ATORVASTATIN CALCIUM 10 MG TABLET PO (08:09)
[2025-04-13] MEDS: MAGNESIUM OXIDE 400 MG TABLET PO (08:09)
--- NOTE | 2025-04-13 11:08 | PM.HP ---
HPI H&P: HPI History of Present Illness Chief complaint: ER thought CHF. Then had A-Fib with RVR. Narrative: This is a 79-year-old woman who came to the emergency room Monday night with just generally feeling unwell. She felt very weak. She been having a cough. She had been having postnasal drip. She had gone to her doctor on . They had prescribed her doxycycline. She had not picked up the doxycycline yet. She felt so unwell on and Monday that she really did not eat any food or drink much liquids. She did not take any of her routine medications. One of her routine medications from home is metoprolol succinate 100 mg p.o. daily. In the ER they did a chest x-ray that was read by the radiologist as having some changes in the bases to suggest CHF. The patient was admitted to the hospital. She got 2 doses of IV Lasix. She got IV hydralazine. She went into atrial fibrillation with rapid ventricular response. She got a bolus of IV Cardizem. She got a Cardizem drip. She got 3 doses of IV digoxin by the overnight doctor. After about 2 hours in atrial fibrillation with rapid ventricular response she did convert to normal sinus rhythm. This morning she has already started on metoprolol tartrate 50 mg twice daily. The patient tells me that her cough and expectoration of sputum it is already getting better. She did not have vomiting at home and did not have diarrhea. She just felt very weak and unwell and did not feel like she wanted to eat. She says that her cough was always clear. She has not had any overt fevers or chills or shaking rigors. She said that she felt very uncomfortable last night from the tachycardia and then the hypertension. She felt so bad that she could not wear her sleep apnea machine last night. She was very symptomatic of the tachycardia last night. She says that her breathing feels much better now. She has no shortness of breath at all. She has only a mild amount of ankle edema. About 5 weeks ago she got out of the alf facility where she spent 2 months getting stronger after a left ankle fracture. Of note, right now her home medication list is not accurate. The EHR has auto-created created a mash up of medications, primarily ones that she was on or got started when she left the hospital last time for the alf facility. The patient and I was not know her home medications. She says that she normally sleeps well on Ambien. She has not used the nortriptyline since she had surgery on her ankle about 3 months ago. As the hospital stay goes on the medication list will be updated. In the room right now she has a nice normal sinus rhythm at about 80 bpm. Her lungs are entirely clear. She has only trivial edema in her ankle. She is eating some food. She is generally feeling a lot better than she did over the last 3 days and certainly last night. Opioid HPI Opioid Management Most Recent Pain and Opioid Data: Last Pain Scale 3 Today, 07:49 Last Pain Intensity 2 12/27/24, 18:01 Last Pain Assessment Today, 11:00 Last ORT Total Score 0 04/12/25, 17:21 Last ORT Risk Category Low Risk 04/12/25, 17:21 Review of Systems ROS Narrative A 10 point review of systems is completed and is negative except as mentioned above in the history present illness. [facility] Medical History Benign essential hypertension ?I10 - Essential (primary) hypertension (ICD-10) Chronic heart failure with preserved ejection fraction (HFpEF) ?I50.32 - Chronic diastolic (congestive) heart failure (ICD-10) Generalized weakness ?R53.1 - Weakness (ICD-10) Fall ?W19.XXXA - Unspecified fall, initial encounter (ICD-10) Pulmonary edema ?J81.1 - Chronic pulmonary edema (ICD-10) Closed head injury ?S09.90XA - Unspecified injury of head, initial encounter (ICD-10) Contusion of right knee ?S80.01XA - Contusion of right knee, initial encounter (ICD-10) Abrasion of elbow, right ?S50.311A - Abrasion of right elbow, initial encounter (ICD-10) Pneumonia ?J18.9 - Pneumonia, unspecified organism (ICD-10) Acute CHF (congestive heart failure) ?I50.9 - Heart failure, unspecified (ICD-10) Acute kidney injury ?N17.9 - Acute kidney failure, unspecified (ICD-10) Community acquired pneumonia ?J18.9 - Pneumonia, unspecified organism (ICD-10) GERD without esophagitis ?K21.9 - Gastro-esophageal reflux disease without esophagitis (ICD-10) Lump of left breast ?N63.20 - Unspecified lump in the left breast, unspecified quadrant (ICD-10) High cholesterol ?E78.00 - Pure hypercholesterolemia, unspecified (ICD-10) Anxiety ?F41.9 - Anxiety disorder, unspecified (ICD-10) Macular degeneration ?H35.30 - Unspecified macular degeneration (ICD-10) Degenerative disc disease Fibromyalgia ?M79.7 - Fibromyalgia (ICD-10) Right shoulder pain ?M25.511 - Pain in right shoulder (ICD-10) Sleep apnea ?G47.30 - Sleep apnea, unspecified (ICD-10) Surgical History Carpal tunnel syndrome, left ?G56.02 - Carpal tunnel syndrome, left upper limb (ICD-10) History of arthroplasty of right ankle ?Z96.661 - Presence of right artificial ankle joint (ICD-10) History of bilateral knee replacement ?Z96.653 - Presence of artificial knee joint, bilateral (ICD-10) History of right hip replacement ?Z96.641 - Presence of right artificial hip joint (ICD-10) Family History Mother Family history of CHF (congestive heart failure) Sister Family history of CHF (congestive heart failure) Son Family history of cancer Family history of diabetes mellitus Family history of hypertension Social History Within the past year, how often did you have a drink containing alcohol: never Score interpretation: A score less than 3 is consistent with normal alcohol consumption. Smoking status: Never smoker Non-prescribed substance use: denies use Previous occupational history: retired Highest level of school completed/degree received: GED or equivalent Are you now , , , , never or living with a partner: In a typical week, how many times do you talk on the telephone with family, friends, or neighbors: 3 or more times per week How often do you get together with friends or relatives: 3 or more times per week How often do you attend spiritism or church services: never Little interest or pleasure in doing things: not at all Feeling down, depressed, or hopeless: not at all Feel stressed/tense/nervous/anxious/difficulty sleeping: not at all Do you think of yourself as: straight/heterosexual Gender Identity: female Meds Home Medications and Allergies Home Medications ?Medication ?Instructions ?Recorded ?Confirmed ?Type simvastatin 10 mg tablet 10 mg PO DAILY 12/01/22 04/12/25 History fexofenadine 180 mg tablet 180 mg PO DAILY 12/26/24 04/12/25 History (Radha Allergy) gabapentin 300 mg capsule 300 mg PO BID 12/26/24 04/12/25 History magnesium oxide 400 mg (241.3 mg 400 mg PO DAILY 12/26/24 04/12/25 History magnesium) tablet metoprolol succinate 100 mg 100 mg PO DAILY 12/26/24 03/27/25 History tablet,extended release 24 hr isosorbide mononitrate 30 mg 30 mg PO DAILY 12/28/24 04/12/25 History tablet,extended release 24 hr cholecalciferol (vitamin D3) 50 50 mcg PO DAILY #30 tabs 12/29/24 04/12/25 Rx mcg (2,000 unit) tablet (Vitamin D3) tizanidine 4 mg tablet 2 mg (1/2 x 4 mg) PO Q8H PRN 12/29/24 04/12/25 Rx Muscle spasm #0 tabs hydralazine 25 mg tablet 25 mg PO BID 03/27/25 03/27/25 History hydrocodone 5 mg-acetaminophen 325 1 tab PO Q4H PRN pain 03/27/25 04/12/25 History mg tablet meloxicam 7.5 mg tablet 15 mg PO DAILY 03/27/25 04/12/25 History alendronate 70 mg tablet 70 mg PO .WEEKLY 04/12/25 04/12/25 History alprazolam 0.25 mg tablet 0.25 mg PO BID PRN anxiety 04/12/25 04/12/25 History denosumab 60 mg/mL subcutaneous 60 mg subcut .[id number] 04/12/25 04/12/25 History syringe (Prolia) doxycycline hyclate 100 mg capsule 100 mg PO Q12H 04/12/25 04/12/25 History escitalopram oxalate 10 mg tablet 10 mg PO HS 04/12/25 04/12/25 History nortriptyline 10 mg capsule 10 mg PO .QHS 04/12/25 History pantoprazole 40 mg tablet,delayed 40 mg PO DAILY 04/12/25 History release zolpidem 10 mg tablet 10 mg PO .qhs PRN sleep 04/12/25 04/12/25 History Allergies Allergy/AdvReac Type Severity Reaction Status Date / Time clarithromycin Allergy Severe Rash Verified 04/12/25 14:42 moxifloxacin (From Avelox) Allergy Severe tongue Verified 04/12/25 14:42 swelling Sulfa (Sulfonamide Allergy Unknown Unknown Verified 04/12/25 14:42 Antibiotics) ciprofloxacin (From Cipro) Allergy Rash Verified 04/12/25 14:42 Exam Narrative Exam Narrative: General: 79-year-old woman sitting upright in bed. BMI 44. Eyes: EOMI. PERRLA. Mouth: High arched palate. Mucosal membranes are moist. Tongue is midline. Neurologic: Recent and remote memory are fairly well intact. I think she is at her neurologic baseline. Neck: Broad-based neck. No thyromegaly. Pulmonary: Clear to auscultation throughout. Her lung sounds are really astonishing only clear. No crackles in the bases. No wheezing. Cardiac: Normal sinus rhythm on the monitor right now. Review of telemetry strips and EKG last night she had atrial fibrillation of 160 bpm. To auscultation her heart sounds are very distant but I hear no murmurs. Gastrointestinal: Abdomen is very obese. Soft. No acute peritoneal signs. Normal bowel sounds to auscultation. Skin: Warm and dry and well-perfused. Lower extremities: Only a tiny trace of edema in her ankles. Psychiatric: Mood and affect are normal. She is pleasant and cooperative to the interview. Constitutional Vital Signs, click to edit/add: Last Vital Signs Temp 98 F 04/13/25 07:49 Pulse 78 04/13/25 10:30 Resp 10 L 04/13/25 10:30 BP 125/83 04/13/25 10:30 Pulse Ox 94 L 04/13/25 08:15 O2 Del Method Room Air 04/13/25 07:49 O2 Flow Rate 2 04/13/25 04:00 Results Labs Labs: Short CBC 04/12/25 04/13/25 Range/Units 14:54 06:41 WBC 6.8 9.1 (4.0-11.0) 10^3/uL Hgb 15.8 15.9 (12.0-16.0) g/dL Hct 46.5 47.7 (36.0-48.0) % Plt Count 230 261 (150-450) 10^3/uL BMP 04/12/25 04/13/25 14:54 06:41 Sodium 142 141 Potassium 4.0 3.5 Chloride 101 102 Carbon Dioxide 25.7 25.3 BUN 14.0 15.0 Creatinine 1.06 H 1.19 H Glucose 86 102 Calcium 9.4 9.2 Liver Function 04/13/25 Range/Units 06:41 Total Bilirubin 1.7 H (0.2-1.0) mg/dL AST 35 (15-37) U/L ALT 17 (14-59) U/L Alkaline Phosphatase 110 (46-116) U/L Albumin 3.7 (3.4-5.0) g/dL Urine 04/12/25 Range/Units 15:10 Urine Color Yellow (YELLOW) Urine Clarity Clear (CLEAR) Urine pH 6.0 (5.0-9.0) Ur Specific [place] >=1.030 A (1.005-1.025) Urine Protein 30 A (NEG/TRACE) mg/dL Urine Glucose (UA) Negative (NEGATIVE) mg/dL Assessment and Plan Assessment and Plan (1) Atrial fibrillation with RVR: (2) Rebound hypertension: (3) Viral URI with cough: (4) Hyperlipidemia: (5) High blood pressure: Qualifiers: Hypertension type: primary hypertension Qualified Code(s): I10 - Essential (primary) hypertension (6) Hypertensive heart disease with chronic diastolic congestive heart failure: (7) BMI 40.0-44.9, adult: Plan Assessment: Originally came down with an upper respiratory tract infection for about 3 days before coming in which I believed to be viral. This is already improving. In-hospital finding of atrial fibrillation with rapid ventricular response. Patient likely had rebound accelerated hypertension from missing at least 2 days worth of her Toprol 100 mg p.o. daily at home because she just stopped taking all of her medications when she felt unwell. History of hypertensive heart disease with chronic diastolic dysfunction congestive heart failure. History hyperlipidemia. BMI of 44.7. High risk of lifelong paroxysmal atrial fibrillation. CHA2DS?VASc score of 5, which gives her a 7% to 8% stroke risk per year. This is based on history of CHF and hypertension and female status and age of 79. We do not know if she has any vascular disease such as peripheral arterial disease or aortic plaque but it seems highly likely. So actually her score may be a 6 which would give her nearly a 10% stroke risk per year. Anticoagulation started by the overnight doctor with Lovenox 100 mg subcutaneously twice a day. Plan: Hospital admission with inpatient status. Ongoing telemetry monitoring. Reinitiate her beta-federica, as has already been done, with metoprolol tartrate 50 mg p.o. twice daily. Over the next day or 2 may be able to get her back to Toprol 100 mg p.o. daily. Monitor blood pressure at this time and see if this comes down with the beta-federica and the diuresis that she got. Stop the meloxicam 15 mg p.o. daily that she took at home since she will be chronically anticoagulated. GI protection with Protonix 40 mg p.o. daily. The patient does have her home sleep apnea machine and I encouraged her to use that tonight. No specific medications will be started for what appears to be a viral upper respiratory tract infection at this time. It seems to be improving nicely. I do not think that she needs antibiotics. She did not even start the doxycycline that was prescribed to her back 4 days ago. I we will continue to monitor her respiratory status closely here in the hospital. The patient describes getting CT angiography of her chest last night. The report is not available in the computer system at this time but we will try and follow-up on that as details come through here on a Monday. Further care for this patient will be accomplished by my colleague (Dr. Singh) taking over for me on Monday morning. Urinary Catheter Management Urinary Catheter Management Straight: Cath placed during this visit: yes Urethral indwelling: No Insertion date: 04/12/25 Insertion time: 15:16 Pure Wick: Cath placed during this visit: yes Urethral indwelling: No Insertion date: 04/12/25 Insertion time: 15:16
--- NOTE | 2025-04-13 11:15 | ECG_ITS ---
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 Measurements Intervals [place] Rate: 74 P: 12 MT: 138 QRS: 28 QRSD: 82 T: -18 QT: 406 QTc: 433 Interpretive Statements 1100 Sinus rhythm 4068 Nonspecific Twave abnormality 9130 borderline ECG Compared to ECG 04/13/2025 02:36:37 Left ventricular hypertrophy no longer present Left-axis deviation no longer present T-wave now inverted in inferior leads Electronically Signed On 04-13-2025 22:52:42 EST by SAUNDRA MCCULLOUGH M.D.
[2025-04-13] MEDS: CHOLECALCIFEROL (VITAMIN D3) 25 MCG/1,000 UNITS TABLET 50 MCG PO (13:24)
[2025-04-13] MEDS: PANTOPRAZOLE SODIUM 40 MG TABLET.DR PO (13:24)
--- NOTE | 2025-04-13 19:57 | PC.NURSE ---
Pt O2 88% Started on 2 liters of O2 via nasal canula
[2025-04-13] MEDS: TIZANIDINE HCL 4 MG TABLET 2 MG PO (21:06)
[2025-04-13] MEDS: ESCITALOPRAM 10 MG TABLET PO (21:06)
[2025-04-13] MEDS: ZOLPIDEM TARTRATE 10 MG TABLET PO (21:07)
[2025-04-14] VITALS (19 sets, daily range): BP systolic 105–143; BP diastolic 65–83; PULSE 56–86; TEMP 36.3–37.1; O2SAT 92–97; BMI 44.7
[2025-04-14 05:31] LABS: Hematocrit 45.6 % (36.0-48.0); Hemoglobin 14.9 g/dL (12.0-16.0); Immature Granulocytes Abs Auto 0.03 10^3/uL (0.00-0.03); Immature Granulocytes Pct Auto 0.4 % (0.0-0.5); Lymphocytes Absolute Auto 3.1 10^3/uL (1.2-3.8); Mean Corpuscular HGB Conc 32.7 g/dL (29.9-35.2); Mean Corpuscular Hemoglobin 32.2 pg (26.7-34.0); Mean Corpuscular Volume 98.5 fL (81.0-99.0); Platelet Count 239 10^3/uL (150-450); Red Blood Count 4.63 10^6/uL (4.20-5.40); White Blood Count 8.3 10^3/uL (4.0-11.0)
[2025-04-14] MEDS: PANTOPRAZOLE SODIUM 40 MG TABLET.DR PO (05:49)
[2025-04-14 05:53] LABS: Anion Gap 13.5; Blood Urea Nitrogen 25.0 mg/dL (7.0-18.0); Calcium 9.0 mg/dL (8.5-10.1); Carbon Dioxide 27.2 mmol/L (21.0-32.0); Chloride 101 mmol/L (98-107); Estimated GFR (African America 27 (>=60 mL/min/1.73m^2); Estimated GFR (Non-African Ame 23 (>=60 mL/min/1.73m^2); Glucose 106 mg/dL (74-106); Magnesium 2.0 mg/dL (1.8-2.4); Potassium 3.7 mmol/L (3.5-5.1); Sodium 138 mmol/L (136-145)
[2025-04-14] MEDS: MAGNESIUM OXIDE 400 MG TABLET PO (08:54)
[2025-04-14] MEDS: CETIRIZINE HCL 10 MG TABLET PO (08:54)
[2025-04-14] MEDS: METOPROLOL TARTRATE 50 MG TABLET PO (08:54)
[2025-04-14] MEDS: ENOXAPARIN SODIUM 100 MG/ML SYRINGE SUBQ (08:54)
[2025-04-14] MEDS: ISOSORBIDE MONONITRATE 30 MG TAB.ER.24H PO (08:54)
[2025-04-14] MEDS: CHOLECALCIFEROL (VITAMIN D3) 25 MCG/1,000 UNITS TABLET 50 MCG PO (08:54)
[2025-04-14] MEDS: ATORVASTATIN CALCIUM 10 MG TABLET PO (08:55)
[2025-04-14] MEDS: GABAPENTIN 300 MG CAPSULE PO ×2 (08:55→21:40)
--- NOTE | 2025-04-14 09:50 | CM.NOTE ---
Important Message From Medicare discussed with pt, pt verbalizes understanding and signs paper. Original given to pt and copy placed on pt's chart.
--- NOTE | 2025-04-14 11:00 | CM.NOTE ---
Rounds made with Dr. Joshi, discussed with pt diagnosis and plan of care. Continue treatment as ordered, no discharge today.
--- NOTE | 2025-04-14 11:15 | ECG_ITS ---
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
--- NOTE | 2025-04-14 14:09 | P.IMPN_ITS ---
Progress Note: A&P Assessment and Plan (1) Atrial fibrillation with RVR: (2) Rebound hypertension: (3) Viral URI with cough: (4) Hyperlipidemia: (5) High blood pressure: Qualifiers: Hypertension type: primary hypertension Qualified Code(s): I10 - Essential (primary) hypertension (6) Hypertensive heart disease with chronic diastolic congestive heart failure: (7) BMI 40.0-44.9, adult: Plan Hospital admission with inpatient status. Ongoing telemetry monitoring. - symptomatically improved at present, CT imaging showed no evidence of infiltrates to warrant antibiotics at this time - will resume home toprol 100 mg daily - does have GASTON likely 2/2 poor PO intake, will hydrate with LR 100 cc/hr and monitor renal function tomorrow, if improved may be stable for d/c home Internal Medicine - PN: Subj Subjective Interval history: Admitted yesterday with atrial fibrillation in the setting of likely viral upper respiratory tract infection, non-compliance with beta federica. Currently rate controlled and improved, however has had recent poor PO intake likely explaining worsened renal function. Compliant with CPAP therapy, denies any chest pain or orthopnea. Exam Narrative Exam Narrative: General: cooperative and tired appearing Orientation: alert, awake and oriented x3 Head: normal to inspection Neck: normal visual inspection Cardio: no JVD, irregular rate, irregular rhythm Chest palpation & inspection: normal inspection of the chest Resp Effort & Inspection: normal respiratory effort Abd: soft, non-tender, non-distended Extremities: Warm well perfused, no edema Constitutional Vital Signs, click to edit/add: Last Vital Signs Temp 98.4 F 04/14/25 11:59 Pulse 70 04/14/25 13:58 Resp 24 H 04/14/25 07:00 BP 116/73 04/14/25 11:59 Pulse Ox 93 L 04/14/25 11:59 O2 Del Method Room Air 04/14/25 11:59 O2 Flow Rate 2 04/13/25 22:02 Internal Medicine - PN: Obj Da Labs Labs: Laboratory Results - last 24 hr 04/14/25 04/14/25 04/14/25 00:12 04:53 10:21 WBC 8.3 RBC 4.63 Hgb 14.9 Hct 45.6 MCV 98.5 MCH 32.2 MCHC 32.7 RDW 13.5 Plt Count 239 MPV 10.9 Neut % (Auto) 44.3 Lymph % (Auto) 37.0 [place] % (Auto) 15.6 H Eos % (Auto) 2.0 Baso % (Auto) 0.7 Neut # (Auto) 3.7 Lymph # (Auto) 3.1 [place] # (Auto) 1.3 H Eos # (Auto) 0.2 Baso # (Auto) 0.1 Abs Immat Gran (auto) 0.03 Imm/Tot Granulo (auto) 0.4 Sodium 138 Potassium 3.7 Chloride 101 Carbon Dioxide 27.2 Anion Gap 13.5 BUN 25.0 H Creatinine 2.11 H Est GFR ( Amer) 27 L Est GFR (Non-Af Amer) 23 L BUN/Creatinine Ratio 11.8 Glucose 106 Calcium 9.0 Magnesium 2.0 Troponin I High Sens 74.8 H* POC Glucose 117 H Urinary Catheter Management Urinary Catheter Management Pure Wick: Cath placed during this visit: yes Urethral indwelling: No Insertion date: 04/12/25 Insertion time: 15:16
--- NOTE | 2025-04-14 14:21 | SWNOTE1 ---
SW stopped in and spoke with pt about discharge planning. Pt has been home from the [facility] since 03/07/25. She voiced she is doing well at home. Walking with her walker. She has PT/OT coming in from home health. SW to find out which company. Pt plans on returning home at discharge. Our therapy team did see pt and just recommended to resume home health services. Pt denies any other needs at this time.
--- NOTE | 2025-04-14 14:32 | US_ITS ---
The [place] [id number] Patient Name: LUMA RIBEIRO MRN: [id number] date: 1945 Sex: F Assigned Patient Location: MS Current Patient Location: Accession/Order Number: [id number] Exam Date: 04/14/2025 17:00 Report Date: 04/14/2025 18:01 At the request of: NYLA LEVINE MD Procedure: US renal BI US renal BI 04/14/2025 5:36 PM SIGNS AND SYMPTOMS: ^r/o hydronephrosis COMPARISON: None. FINDINGS: Right kidney measures 9.5 x 4.0 x 4.0 cm . The right renal cortex measures 7 mm in thickness. There is no hydronephrosis or mass. Left kidney measures 8.9 x 3.9 x 4.2 cm . The left renal cortex measures 9 mm in thickness. There is no hydronephrosis or mass. The urinary bladder is morphologically normal. No free fluid is seen in the pelvis. Before voiding, the bladder has an estimated prevoid volume of 190 mL. US/US renal BI IMPRESSION: There is no hydronephrosis or mass. Impression dictated by: Sj Bach M.D. 04/14/2025 6:01 PM Dictation Location: [place] [address] Electronically authenticated by: [id number] Y Date: 04/14/2025 18:01
--- NOTE | 2025-04-14 15:03 | PC.NURSE ---
1300- this rn at bedside for shift assessment and worklist tasks completed by henry to, nurse international accounting manager. agree with charting.
--- NOTE | 2025-04-14 17:51 | CA_ITS ---
Patient Name: LUMA RIBEIRO MR#: [id number] : 1945 Exam Date: 04/14/2025 Ordering Doctor: MANE BATRES ECHOCARDIOGRAM REPORT PROCEDURE: CA ECHO DOPPLER COMPLETE INDICATIONS: CHF, pulmonary edema, hypertension COMPARISON: None. DESCRIPTION: COMPLETE ECHOCARDIOGRAM Real-time transthoracic echocardiography with 2D, M-mode, spectral and color flow Doppler performed. QUALITY: Technical quality was adequate. LEFT VENTRICLE: Normal chamber size. Moderate concentric left ventricular hypertrophy. Calculated left ventricular ejection fraction is 57%. LV EF: Global left ventricular systolic function is normal; visually estimated ejection fraction is 60 to 65%. Abnormal septal motion may be related to underlying bundle branch block. DIASTOLIC: Grade I diastolic dysfunction. ATRIAL SEPTUM: Inadequately seen. LEFT ATRIUM: Normal chamber size. RIGHT ATRIUM: Normal chamber size. RIGHT VENTRICLE: Normal chamber size. Normal right ventricular systolic function. TRICUSPID VALVE: Normal mobility and thickness. No stenosis with trivial regurgitation. Unable to assess right-sided pressure due to lack of measurable tricuspid regurgitation. MITRAL VALVE: Normal mobility and thickness. No evidence of mitral valve stenosis. Mild mitral annular calcification. No mitral regurgitation. AORTIC VALVE: Normal trileaflet appearance. No visible sclerosis. Normal leaflet mobility. No evidence of aortic valve stenosis. No aortic regurgitation. AORTIC ROOT: Normal diameter and appearance. PULMONIC VALVE: Normal thickness and mobility. No stenosis. No regurgitation. PERICARDIUM: Anterior free space; trivial effusion versus fat pad. IVC: Not well visualized. CONCLUSION: 1. Global left ventricular systolic function is normal; visually estimated ejection fraction is 60 to 65% 2. Normal right ventricular size and systolic function 3. Moderate left ventricular hypertrophy 4. Grade 1 diastolic dysfunction 5. Unable to assess right-sided pressures due to lack of measurable tricuspid regurgitation 6. Anterior free space; trivial effusion versus fat pad 7. No significant valvular abnormalities Adult Echocardiography Procedure Report Left Ventricle LVEDD (3.7 - 5.6 cm): 3.86 cm LVESD (2.2 - 4.0 cm): 3.05 cm LVIVS thickness (0.6 - 1.2 cm): 1.53 cm LVPW thickness (0.5 - 1.0 cm): 1.53 cm e': 0.06 m/s E - e': 8.07 LVOT Max Gradient: 4.66 mm[Hg] LVOT Area (cm2): 1.08 m/s Peak Velocity (LVOT): 1.08 m/s Mean Velocity (LVOT): 0.68 m/s LVOT Diameter 2.29 cm Left Ventricular Ejection Fraction: 56.94 % Left Atrium LA Volume Index (2D A2C): 32.02 ml/m2 Left Atrium Systolic Dimension: 3.53 cm Mitral Valve MV E to A Ratio: 0.56 Mitral Valve A-Wave Peak Velocity: 0.82 m/s Mitral Valve E-Wave Peak Velocity: 0.46 m/s Right Ventricle Aorta AO Root Diam: 3.31 cm Aortic Valve AoV Area (Peak Twan): 2.61 cm2, 2.61 cm2 AoV Area (VTI): 3.42 cm2, 3.42 cm2 Peak Velocity(Antegrade Flow): 1.71 m/s Peak Gradient(Antegrade Flow): 11.65 mm[Hg] Mean Velocity(Antegrade Flow): 1.18 m/s Mean Gradient(Antegrade Flow): 6.34 mm[Hg] Velocity Time Integral: 21.96 cm Tricuspid Valve Pulmonic Valve Mean Gradient: 2.49 mm[Hg] Mean Velocity: 0.73 m/s Peak Velocity: 1.08 m/s Peak Gradient: 4.69 mm[Hg] Right Atrium Right Atrium Systolic Pressure: 68.42 ml, 68.42 ml Dictated by: Glenn Lau M.D. on 04/14/2025 at 14:05 Approved by: Glenn Lau M.D. on 04/14/2025 at 14:08
[2025-04-14] MEDS: ZOLPIDEM TARTRATE 10 MG TABLET PO (21:40)
[2025-04-14] MEDS: METOPROLOL SUCCINATE 100 MG TAB.ER.24H PO (21:40)
[2025-04-14] MEDS: ESCITALOPRAM 10 MG TABLET PO (21:40)
[2025-04-14] MEDS: APIXABAN 5 MG TABLET PO (21:40)
[2025-04-15] VITALS (7 sets, daily range): BP systolic 140–156; BP diastolic 77–87; PULSE 64–82; TEMP 36.8–37.1; O2SAT 95–97
[2025-04-15 05:31] LABS: Hematocrit 40.6 % (36.0-48.0); Hemoglobin 13.6 g/dL (12.0-16.0); Immature Granulocytes Abs Auto 0.01 10^3/uL (0.00-0.03); Immature Granulocytes Pct Auto 0.2 % (0.0-0.5); Lymphocytes Absolute Auto 2.2 10^3/uL (1.2-3.8); Mean Corpuscular HGB Conc 33.5 g/dL (29.9-35.2); Mean Corpuscular Hemoglobin 32.5 pg (26.7-34.0); Mean Corpuscular Volume 97.1 fL (81.0-99.0); Platelet Count 182 10^3/uL (150-450); Red Blood Count 4.18 10^6/uL (4.20-5.40); White Blood Count 6.3 10^3/uL (4.0-11.0)
[2025-04-15] MEDS: PANTOPRAZOLE SODIUM 40 MG TABLET.DR PO (05:37)
[2025-04-15 05:42] LABS: Anion Gap 11.0; Blood Urea Nitrogen 22.0 mg/dL (7.0-18.0); Calcium 8.7 mg/dL (8.5-10.1); Carbon Dioxide 29.4 mmol/L (21.0-32.0); Chloride 104 mmol/L (98-107); Estimated GFR (African America 48 (>=60 mL/min/1.73m^2); Estimated GFR (Non-African Ame 39 (>=60 mL/min/1.73m^2); Glucose 114 mg/dL (74-106); Potassium 3.4 mmol/L (3.5-5.1); Sodium 141 mmol/L (136-145)
[2025-04-15] MEDS: CETIRIZINE HCL 10 MG TABLET PO (08:03)
[2025-04-15] MEDS: METOPROLOL SUCCINATE 100 MG TAB.ER.24H PO (08:03)
[2025-04-15] MEDS: GABAPENTIN 300 MG CAPSULE PO (08:03)
[2025-04-15] MEDS: ATORVASTATIN CALCIUM 10 MG TABLET PO (08:03)
[2025-04-15] MEDS: APIXABAN 5 MG TABLET PO (08:03)
[2025-04-15] MEDS: CHOLECALCIFEROL (VITAMIN D3) 25 MCG/1,000 UNITS TABLET 50 MCG PO (08:03)
[2025-04-15] MEDS: MAGNESIUM OXIDE 400 MG TABLET PO (08:03)
[2025-04-15] MEDS: ISOSORBIDE MONONITRATE 30 MG TAB.ER.24H PO (08:03)
--- NOTE | 2025-04-15 08:55 | SWNOTE1 ---
SW did call [facility] and pt was not current with them. SW to call [facility] to see what company pt went home with.
--- NOTE | 2025-04-15 09:02 | SWNOTE1 ---
AMARA spoke with Brenna at the [facility] and the [facility] is the therapy team that goes in to the home to see pt.
--- NOTE | 2025-04-15 11:14 | PM.DS1 ---
DS: Providers Provider Date of admission: 04/12/25 17:06 Primary care physician: REJI FORRESTER Admitting clinician: EVELYN MEADOWS Attending physician on admission: EVELYN MEADOWS Consults: 04/14/25 Occupational Therapy Eval and Treat Routine Reason for consultation: weakness Physical Therapy Eval and Treat Routine Reason for consultation: weakness Attending physician on discharge: NYLA LEVINE Discharging clinician: NYLA LEVINE DS: Diagnosis Discharge Diagnosis (1) Atrial fibrillation with RVR: (2) Rebound hypertension: (3) Viral URI with cough: (4) Hyperlipidemia: (5) High blood pressure: Qualifiers: Hypertension type: primary hypertension Qualified Code(s): I10 - Essential (primary) hypertension (6) Hypertensive heart disease with chronic diastolic congestive heart failure: (7) BMI 40.0-44.9, adult: DS: Summary Hospital Course Hospital Course: Usha Walker is a 79 y/o F, h/o HTN, HFpEF, sleep apnea, presented to [facility] on 04/12/25 with feeling unwell, cough with clear sputum and poor appetite, no compliance with meds for past 2 days. CXR showed concern for CHF, diuresed with lasix and received hydralazine but then went into Afib w/RVR to 165, converted to sinus after diltiazem and digoxin. CT PE r/o PE. She was admitted for further management, felt improved off of antibiotics, viral panel resulted negative. She did have a mild troponin elevation to 76 likely demand from afib that resolved. Her creatinine bumped to 2.11 but improved with IV hydration, suspected 2/2 poor PO intake prior to admission. Her NJZZT2GUOS score = 5, however she did report 4 falls over the past 6 months including one with a head laceration, another requiring ankle surgery, and lives at home alone. Joint decision making was made to hold starting apixiban until outpatient follow up with cardiology, understanding the risk of stroke. She was discharged on 04/15/25 in improved condition and in sinus rhythm with additional ASA81 therapy given likely underlying CAD and continued home dose of metoprolol succinate 100 mg daily. Follow up BMP in 3-5 days to be followed by PCP. Time Spent with Patient Time attestation: Total time spent providing and/or coordinating discharge services: Exam Narrative Exam Narrative: General: cooperative and tired appearing Orientation: alert, awake and oriented x3 Head: normal to inspection Neck: normal visual inspection Cardio: no JVD, regular rate, regular rhythm Chest palpation & inspection: normal inspection of the chest Resp Effort & Inspection: normal respiratory effort Abd: soft, non-tender, non-distended Extremities: Warm well perfused, no edema Constitutional Vital Signs, click to edit/add: Last Vital Signs Temp 98.4 F 04/15/25 07:50 Pulse 72 04/15/25 07:52 Resp 16 04/15/25 07:50 BP 147/80 H 04/15/25 07:50 Pulse Ox 97 04/15/25 07:52 O2 Del Method Room Air 04/15/25 07:50 O2 Flow Rate 2 04/13/25 22:02 DS: Data Data Completed and Pending Labs on day of discharge: Labs from last 24 hours 04/15/25 05:18 WBC 6.3 RBC 4.18 L Hgb 13.6 Hct 40.6 MCV 97.1 MCH 32.5 MCHC 33.5 RDW 13.2 Plt Count 182 MPV 10.9 Neut % (Auto) 44.9 Lymph % (Auto) 35.0 [place] % (Auto) 16.0 H Eos % (Auto) 3.3 Baso % (Auto) 0.6 Neut # (Auto) 2.8 Lymph # (Auto) 2.2 [place] # (Auto) 1.0 H Eos # (Auto) 0.2 Baso # (Auto) 0.0 Abs Immat Gran (auto) 0.01 Imm/Tot Granulo (auto) 0.2 Sodium 141 Potassium 3.4 L Chloride 104 Carbon Dioxide 29.4 Anion Gap 11.0 BUN 22.0 H Creatinine 1.31 H Est GFR ( Amer) 48 L Est GFR (Non-Af Amer) 39 L BUN/Creatinine Ratio 16.8 Glucose 114 H Calcium 8.7 Discharge Plan Discharge Disposition: Home Health Service Condition: Fair Discharge Medications: New aspirin 81 mg tablet 81 mg PO DAILY 30 Days Qty: 30 0RF Continued simvastatin 10 mg tablet 10 mg PO DAILY magnesium oxide 400 mg (241.3 mg magnesium) tablet 400 mg PO DAILY fexofenadine [Radha Allergy] 180 mg tablet 180 mg PO DAILY gabapentin 300 mg capsule 300 mg PO BID isosorbide mononitrate 30 mg tablet extended release 24 hr 30 mg PO DAILY tizanidine 4 mg Tablet 2 mg PO Q8H PRN (Reason: Muscle spasm) Qty: 0 0RF cholecalciferol (vitamin D3) [Vitamin D3] 50 mcg (2,000 unit) tablet 50 mcg PO DAILY Qty: 30 0RF hydrocodone-acetaminophen 5-325 mg tablet 1 tab PO Q4H PRN (Reason: pain) alendronate 70 mg tablet 70 mg PO .WEEKLY zolpidem 10 mg tablet 10 mg PO .qhs PRN (Reason: sleep) escitalopram oxalate 10 mg tablet 10 mg PO HS pantoprazole 40 mg tablet,delayed release (DR/EC) 40 mg PO DAILY nortriptyline 10 mg capsule 30 mg PO .QHS Prolia 60 mg/mL syringe 60 mg SUBCUT .z6sburke alprazolam 0.25 mg tablet 0.25 mg PO BID PRN (Reason: anxiety) Changed metoprolol succinate 100 mg tablet extended release 24 hr 100 mg PO DAILY Qty: 0 0RF Held hydralazine 25 mg tablet 25 mg PO BID Hold Instructions: Resume on 04/22/25. To be resumed by PCP Discontinued meloxicam 7.5 mg tablet 15 mg PO DAILY doxycycline hyclate 100 mg capsule 100 mg PO Q12H Rx Instructions: filled 04/10/25 for 10 days Activity: ambulate only with your walker, as per physical therapy and resume usual activities as tolerated Print Language: Austrian Patient Instructions: A-fib (Atrial Fibrillation) (GEN) Forms: Portal Instructions Follow Up Appointments: Sushila Nieves NP - Mon. 04/16 @ 9am [phone] Keep Appointment with [facility] for heart monitor placement - 04/28, @1:00 pm. Also scheduled appointment at 05/16, @2:00 pm [phone]
--- NOTE | 2025-04-15 11:25 | CM.NOTE ---
Rounded with Dr Joshi. Pt discharging home with outpatient PT thru the [facility]. Follow up appt made with PCP and Cardiology.
--- NOTE | 2025-04-16 10:09 | SWNOTE1 ---
SW received a call from pt. Pt went home yesterday and resumed her outpt therapy from the [facility]. Pt voiced she should have listened to therapy team and went to rehab at the [facility]. SW did review therapy notes and the recommendations were home health, which pt has coming from the [facility]. Pt voiced she is feeling weak. SW did review pt's chart and she does have Medicare and has a qualifying 3 day stay. SW to call the [facility] to see if they have any openings. Pt in agreement. AMARA called Rock at the [facility] and explained the situation. Rock stated they do not have any openings, but maybe this weekend. She can review the referral and be in touch with pt. Rock stated if she really needs to get to rehab, she should get in to somewhere as soon as possible and not wait for a bed at the [facility]. SW in agreement. SW to call the patient back.
--- NOTE | 2025-04-16 10:17 | SWNOTE1 ---
AMARA called pt back to discuss the [facility]. SW let her know the [facility] does not have any openings right now, but they can review the referral and be in contact with pt when/if a bed opens. SW did let her know the [facility] will have to prioritize pt's that are in the hospital. SW did let her know that she does have a 3 day stay so SW can call any other facility and work on getting her in to a different one. Pt voiced she is unsure and confused at what to do? SW asked to explain to SW her confusion. Pt became emotional and just voiced she was not sure what to do. Should she go to hospital? SW asked pt how she was feeling right now? She stated just weak and tired. SW asked when she goes to her PCP for a follow up? She stated on Monday. SW asked if she could call her PCP to try and get in earlier. She stated she may not have a ride, but can work on getting a ride for tomorrow and will try to reschedule. Pt then stated therapy will be coming out at 12:00. Earlier pt had to try to take her blood pressure, but the machine was not working. AMARA advised to have the therapy person assist her at 12:00. SW advised to also discuss how she is feeling with the therapy person at 12:00 as well. AMARA advised pt that pt is always welcome to return to the ED if she is not feeling well. AMARA recommends doing this if pt continue to not feel well so that she can get checked out by a medical professional. Pt is going to wait until therapy comes in at 12:00 and make her decision. AMARA to call back around 04/11:30.
--- NOTE | 2025-04-16 12:48 | SWNOTE1 ---
SW attempted to call pt, no answer. SW to try again later today.
--- NOTE | 2025-04-16 13:30 | CM.DCFOLLOWU ---
Returned to ED 04/16, see SW note.
== END 2025-04-15 13:29 | disposition home or self-care (01) | DRG 309 ==
LOC: ER 16:12 → MS 17:09
PROVIDERS: Hospitalist; Internal Medicine; Student in an Organized Health Care Education/Training Program; Admitting Provider Student in an Organized Health Care Education/Training Program; Emergency Provider Emergency Medicine; PCP Internal Medicine; Visit Provider Student in an Organized Health Care Education/Training Program
DX: I48.91 Unspecified atrial fibrillation (principal); I50.32 Chronic diastolic (congestive) heart failure; I11.0 Hypertensive heart disease with heart failure; J06.9 Acute upper respiratory infection, unspecified; E78.5 Hyperlipidemia, unspecified; K21.9 Gastro-esophageal reflux disease without esophagitis; F41.9 Anxiety disorder, unspecified; M79.7 Fibromyalgia; H35.30 Unspecified macular degeneration; G47.30 Sleep apnea, unspecified; Z79.899 Other long term (current) drug therapy; Z79.1 Long term (current) use of non-steroidal anti-inflammatories (NSAID)
CPT/HCPCS: 36415; 51798; 71045; 71275; 76775; 80048; 80053; 80061; 81001; 83735; 83880; 84484; 85025; 85378; 87804; 87811; 93005; 93306; 93970; 94761; 96374; 97162; 97165; 97530; 97535; 99285; J0360; J1160; J1650; J1938; Q9967

== ENCOUNTER 2025-04-16 11:47 | Emergency (ER) | payer MEDICARE, OTHER, SELFPAY ==
--- OUTSIDE RECORDS SUMMARY | 2025-04-10 13:00 | XMS_ITS | Encounter Summary ---
Author Organization [facility] Address [address] [place] [address] Care Team Providers Care Open Die Inspector Name Role Phone Roc Steele MD Primary Care Provider Roc Steele MD Unavailable [phone] Luis Felipe Dugan DO Unavailable [phone] Gladis Laird LPN Unavailable Encounter Details DateTypeDepartmentCare Team (Latest Contact Info)Anttqpihkpx39/11/2025 1:00 PM ESTOffice Visit [facility] [place] [facility] [address] [place] [phone] Aarti Castillo, DEISY [address] [place], [place] [id number] Benign essential hypertension (Primary Dx); Anxiety; Age-related [...] relatives?Once a week11/25/2022How often do you attend anglican or methodist services?Never11/25/2022o you belong to any clubs or organizations such as anglican groups, unions, fraternal or athletic groups, or school groups?No11/25/2022How often do you attend meetings of the clubs or organizations you belong to?Never11/25/2022re you , , , , never , or living with a partner?Uhgbhkt1011/25/2022 AUDIT-CAnswerDate RecordedQ1: How often do you have [...] hard at all11/25/2022HQ-2 AnswerDate RecordedPatient Health Questionnaire-2 Pukul886Finbear [facility] [place] of Occupational Health - Occupational Stress QuestionnaireAnswerDate RecordedDo you feel stress - tense, restless, nervous, or anxious, or unable to sleep at night because yourmind is troubled all the time - these days?Only a zizvik9511/25/2022Exercise Vital SignAnswerDate RecordedOn average, how many days [...] steady place to sleep or slept in formerly [facility] (including now)?No11/25/2022CommentsUnknownSex and Gender InformationValueDate RecordedSex Assigned at BirthNot on fileLegal SexFemale 07/13/2022 7:20 PM EDTGender IdentityNot on fileSexual OrientationNot on file documented as of this encounter Last Filed Vital Signs Vital SignReadingTime TakenCommentsBlood Tjcmmnkp739/7804/10/2025 1:18 PM EST Iqysf845004/10/2025 1:18 PM ESTTemperature--Respiratory Cgpv101006/11/2024 1:18 PM ESTOxygen Dabhphwods57%04/10/2025 1:18 PM ESTInhaled Oxygen Concentration-- Ikcwjs341 kg (268 lb)04/10/2025 1:18 PM FTNKkpmbm275.5 cm (5' 2 )04/10/2025 1:18 PM ESTBody Mass Index49.02106/11/2024 1:18 PM ESTdocumented in this encounter Functional Status * Over the past 2 weeks, how often have you been bothered by any of the following problems?QuestionAnswerDate of AssessmentAuthorLittle interest or pleasure in doing thingsSeveral days04/10/2025 1:06 PM Andrez SANABRIAeling down, depressed, or hopelessNot at all04/10/2025 1:06 PM PAPO SANABRIA Patient Health Questionnaire-2 Talqw346 1:06 PM PAPO SANABRIA documented as of this encounter Progress Notes * Aarti Castillo, NUCLEAR ENGINEER - 04/10/2025 1:00 PM EST Images from [...] morning and 25 mg before bedtime. HYDROcodone-acetaminophen ([place]) 5-325 MG tablet Take 1 tablet by [...] INJECTION x7 NERVE BLOCK Left 03/26/2019 T12-L3 CA TOTAL HIP ARTHROPLASTY Left [place] (01-29-2020 to 01-30-2020) RADIOFREQUENCY ABLATION Left 06/25/2019 [...] Fosamax Lumbosacral spondylosis without myelopathy - HYDROcodone-acetaminophen ([place]) 5-325 MG tablet; Take 1 tablet by [...] Plan of Treatment DateTypeDepartmentCare Team (Latest Contact Info)Joszyrxqwko31/19/2025 11:30 AM ESTOffice Visit [facility] [place] [facility] [address] [facility] [address] [place] [phone] Sushila Nieves PA [address] [place] [address] 06/05/2025 1:40 PM ESTProcedure Visit [facility] [address] [place] [phone] Alex Tam, DPM [address] [facility] [place] [address] [place] [address] documented as of this encounter Goals GoalPatient Goal TypeAssociated ProblemsRecent ProgressPatient-Stated?Author Help patient manage antidepressant medication Care PlanPatient on antidepressant monitoring planShaquille De La Torrecumented as of this encounter Visit Diagnoses Diagnosis [...] MemberRelationshipSpecialtyStart DateEnd Date Roc Steele MD [address] [facility] [address] [place] [address] PCP - GeneralInternal Medicine09/28/22 Roc Steele MD [address] [place] [address] PCP - ACO Reach08/30/23 Luis Felipe Dugan DO [address] [place] [address] Referring QzostisgkXjjvtetan51/7/24 Gladis Laird LPN [address] [facility] [address] [place] [address] 07/19/24documented as of this encounter
[2025-04-16 11:48] VITALS: BP 155/77; PULSE 54; TEMP 37.1; O2SAT 98; BMI 45.8
--- OUTSIDE RECORDS SUMMARY | 2025-04-16 12:04 | XMS_ITS | Patient Health Record ---
Author Organization [employer] [facility] Address [address] [facility] [address], [place] [address] Care Team Providers Care Jig Boring Machine Set Up Operator Name Role Phone Kaden Zepeda Unavailable [phone] Allergies Allergen (clinical drug ingredient) Drug/Non Drug [...] fruit juices. Orally Once a day ActiveVitamin A0KkrlebYtefmyiyu Oxide 400 MG Tablet1 tablet with food [...] use. Encounters Encounter Location Date Provider Diagnosis [address] [address] 01/10/2025 Kdaen Zepeda Closed bimalleolar fracture of left ankle, initial encounter S82.842A and Syndesmotic disruption of left ankle, initial encounter S93.432A [address] [address] 01/24/2025 Kaden Zepeda Closed displaced bimalleolar fracture of left ankle, initial encounter S82.842A ; Syndesmotic disruption of left ankle, initial encounter S93.432A and Closed displaced fracture of medial malleolus of left tibia, initial encounter S82.52XA [address] [address] 02/17/2025 Kaden Zepeda Closed displaced bimalleolar fracture of left ankle, initial encounter S82.842A ; Closed displaced fracture of medial malleolus of left tibia, initial encounter S82.52XA and Syndesmotic disruption of left ankle, initial encounter S93.432A [address] [address] 03/31/2025 Kaden Zepeda Closed displaced bimalleolar fracture [...] will require ~1 week more at the [facility] to ensure she is safe and stable [...] which she (or ) will need to pick remover from medicalsupply provider prior to next appointment - xray order sent to [facility] which she is to obtain prior to [...] Name:Kaden garrido, 06/02/2025 10:30:00 AM, [address] [facility] [facility] [address], [place], [address], Insurance Providers Payer Name Payer Address Payer Phone Subscriber Number Group Number Insured Name Patient Relationship to Insured Coverage Start Date Coverage End Date Medicare of [place] J[address] [place], [place] [address] [phone] [id number] Eva Walker - patient is the insured[facility] Insurance Company Medicare SupplementPO [address] [address] [place], [place] [id number], BonnieSelf - patient is the insured Medical (General) History Medical History History ICD Code Glaucoma Heart DiseaseHypertensionOsteopeniaInsomniaSurgical History Surgery Date(Month/Year) Total Left Hip ORIF Ankle RightLeft ShoulderBilateral Knee ReplacementsORIF Ankle [id number]
--- OUTSIDE RECORDS SUMMARY | 2025-04-16 12:05 | XMS_ITS | Clinical Summary ---
Author Organization [facility] Address [address] [place] [address] Phone Care Team Providers Care Certified Registered Locksmith Name Role Phone Roc Steele MD Primary Care Provider [phone] Allergies Active AllergyReactionsCriticalityNoted DateCommentsMoxifloxacinAngioedema 07/15/20246744WtwnbkycizayoUxsqbgw00/17/2025Sulfa (Sulfonamide Antibiotics)Unknown 07/15/2024 Medications MedicationSigDispense QuantityRefillsLast FilledStart DateEnd DateStatus HYDROcodone-acetaminophen ([place]) 5-325 mg tablet Take 1 tablet by [...] mouth as needed at bedtime for anxiety.Active zwaqtqoclkxc-Ep-sxue-minerals tablet Take 1 tablet by mouth once [...] CPAP2024t high risk for falls 07/15/2024Uses roller gualbl1807/15/2024Encounter to discuss test results 07/15/2024Never smoked euquubhoja82/17/2025ody mass index (BMI) 40.0-44.9, adult07/15/2024Primary ffbiuganyyfg03/17/2025arotid /17/2025 Paroxysmal supraventricular unddlumihyi83/17/6171Gbntzkyjxynz98/17/2025 Gastroesophageal reflux disease without nsyiitzbdba02/17/2025Mixed tevxfwrwgbwgvy68/17/2025CKD (chronic kidney disease)5Abnormal EKG 5Chest hrhuxmjijc38/17/6762Uqzumjmsihlwmhj82/17/2025 Family History Medical HistoryRelationNameCommentsBrain AneurysmBrotherAortic aneurysmFather Heart failureMotherHeart failureSisterRelationNameStatusCommentsBrotherFather MotherSister Social History Tobacco UseTypesPacks/DayYears UsedDateSmoking Tobacco: NeverSmokeless Tobacco: Never Tobacco Cessation:Counseling Given: Not Answered Alcohol UseStandard Drinks/WeekCommentsNot Currently0 (1 standard drink = 0.6 oz pure alcohol)CommentsUnknownSex and Gender InformationValueDate Recorded Sex Assigned at BirthNot on fileLegal HabHbapcq06/26/2022 7:23 PM ESTGender IdentityNot on fileSexual OrientationNot on file Last Filed Vital Signs Vital SignReadingTime TakenCommentsBlood Rvdbbnul874/90011/15/2024 3:00 PM EDT Jweep9648/18/2025 2:11 PM EDTTemperature--Respiratory Rate--Oxygen Saturation-- Inhaled Oxygen Concentration--Pvqfkt069 kg (262 lb)2024 2:11 PM EDTHeight 162.6 cm (5' 4 )2024 2:11 PM EDTBody Mass Index44.9711/15/2024 2:11 PM EDT Plan of Treatment DateTypeDepartmentCare Team (Latest Contact Info)Qixvrdddkmv74/29/2025 1:00 PM ESTAncillary [facility] at [facility] [address] [place] [phone] 05/16/2025 2:00 PM ESTOffice Visit at [facility] [address] [place] [phone] Rc Kern MD [address] [facility] [address] [place] [address] Health MaintenanceDue DateLast DoneCommentsHepatitis C Ouuiubgja39/18/1965CKD: Urine Protein Bfxqcjuhm74/18/1966DTaP/Tdap/Td Vaccines (1 - Tdap)1968 Creatinine Level, 01/20/2020Diabetes Cvozwqzsg89/01/2021 01/30/2020, 01/20/2020Potassium Level, 01/20/2020RSV High Risk: (Elderly (60+) or Population) (1 - 1-dose 75+ series)2021 Medicare Annual Wellness Visit (AWV)/10/2023, 06/29/2022, 10/14/2020, Additional history existsInfluenza Vaccine (#1)/08/2023, 03/01/2023, 03/23/2022, Additional history existsCOVID-19 Vaccine ( season)/12/2023, 03/31/20223451Znmsrouesmkgga33/21/041712/5Bone Density Scan, 07/26/2024, 10/21/2020, Additional history existsLipid Panel8554WifzbywlvfrHnodaidjzzuj51/03/2013Colorectal Cancer ScreeningDiscontinuedPneumococcal MfzhhdjIizhpkbnc15/10/2015, 12/11/2013 Zoster TxylyqouLwppvihlg74/28/2020, 05/16/2019, 01/17/2012CT Colonography DiscontinuedFIT-DNA (Cologuard)DiscontinuedFITDiscontinuedHIB VaccinesAged OutNo [...] to complete this topicSigmoidoscopyDiscontinued Medical Devices ImplantedTypeAreaManufacturerDevice IdentifierScleveland clinic south pointe hospitalf Expiration DateModel / Serial / LotScrew, Low Profile Hex, 6.5 X 15 Mm Case [id number] Implanted:Qty: 1 on 01/29/2020 by Micah Bird MDImplantRight: HipSTrioMed [id number] / / 5MMDescription:Converted from Care Acute. Please see archived information for full log information.Screw, Low Profile Hex, 6.5 X 25 Mm Case [id number] Implanted:Qty: 1 on 01/29/2020 by Micah Bird MDImplantRight: HipSTrioMed [id number] / / 2RGEDescription:Converted from Care Acute. Please see archived information for full log information.Head, Femur V40 36mm +2.5mm Biolox Delta Case [id number] Implanted:Qty: 1 on 01/29/2020 by Micah Bird MDJointRight: [id number] / / [id number]:Converted from Care Acute. Please see archived information for full log information.Stem, Femur 132d Sz 5 Accolade Ii Case [id number] Implanted:Qty: 1 on 01/29/2020 by Micah Bird MDJointRight: [id number] / / [id number]:Converted from Care Acute. Please see archived information for full log information.Shell, Trident Ii, Clusterhole, [place] 52e Case [id number] Implanted:Qty: 1 on 01/29/2020 by Micah Bird MDJointRight: [id number] / / [id number]:Converted from Care Acute. Please see archived information for full log information.Liners, Poly 36 X 10 D Trid Crossfire E Case [id number] Implanted:Qty: 1 on 01/29/2020 by Micah Bird MDJointRight: [id number] / / [id number]:Converted from [facility]. Please see archived information for full log information. Procedures Procedure NamePriorityDate/TimeAssociated DiagnosisCommentsTRANSTHORACIC ECHO (TTE) QMLIBWNHPwlyjmn12/21/2025 11:39 AM EDT Paroxysmal supraventricular tachycardia Abnormal EKG Palpitations BASIC METABOLIC UUTTNEumscoz99/01/2020 5:25 AM EDT from Last 3 Months or Most Recently Relevant to Health Maintenance Results * TRANSTHORACIC ECHO (TTE) COMPLETE (09/18/2024 11:39 AM EDT)ComponentValueRef RangeTest MethodAnalysis TimePerformed AtPathologist SignatureAV mn pjxz9wrDx SYNGOAV pk vel1.81m/sSYNGOLV Biplane EF36%SYNGOLVOT diam2.27cmSYNGOMV E/A ratio0.79SYNGOMV avg E/e' ratio26.81SYNGOLA vol index A/L44.1ml/c2WADMHVH EF63 %SYNGORV free wall pk S'15.98cm/sSYNGOLVIDd4.66cmSYNGOAortic Valve Area by Continuity of Peak Velocity2.93tr8OLAXALQ pk xtyq59jbXqVVIAZMhheap Valve Area by Continuity of VTI1.65ts1AYOFUSH A4C EF42.7SYNGOSpecimen (Source)Anatomical Location / LateralityCollection Method / VolumeCollection TimeReceived Time 09/18/2024 10:19 AM EDT Narrative SYNGO - 09/18/2024 6:10 PM EDT ?[address], Suite [facility], [place] [address] ? TRANSTHORACIC ECHOCARDIOGRAM REPORT Patient Name: ? USHA WALKER ? Reading Physician: ?[id number] David ?IbrahimMD, FACC Study Date: ? 09/18/2024 ? Ordering Provider: ?[id number] RC ?KERN MRN/PID: ?[id number] ?Fellow: Accession#: ? [id number] ?Nurse: Date of /Age: ??1945 / ?Bulb Packer: ?Viry Quigley ?years ? RDCS, RVT Gender Assigned at ??F ? Additional Staff: : Height: ? 162.56 cm ? Admit Date: Weight: ? 122.02 kg ? Admission Status: ? Outpatient BSA / BMI: ?2.22 m2 / 46.17 ? Department Location: ??[facility] ?kg/m2 ? [place] Blood Pressure: 124 /86 mmHg Study Type: ?TRANSTHORACIC ECHO (TTE) COMPLETE Diagnosis/ICD: Supraventricular tachycardia-I47.1; Abnormal electrocardiogram ? [ECG] [EKG]-R94.31; Palpitations-R00.2 Indication: ?Edema, HTN, Hyperlipidemia, Carotid Stenosis, CARO, CKD-Stage III, ? Morbid Obesity CPT Codes: ? Echo Complete w Full Doppler-32540 Study Detail: The following Echo studies were [...] (0.6-0.9m/s) AORTA: Asc Ao Diam 2.66 cm [id number] David Castle MD, [facility] Electronically signed on 09/18/2024 at 6:10:05 PM Final Procedure Note David Castle MD - 09/18/[address], [address] [place] [address] TRANSTHORACIC ECHOCARDIOGRAM REPORT Patient Name: USHA Deal Physician: [id number] Castle MD,FAC Study Date: 09/18/2024 Ordering Provider: JO KERN MRN/PID: [id number] Fellow: Nurse: Date of /Age: 7 1945 Bulb Packer: VanessaMetz years RDCS, RVT Gender Assigned at F Additional Staff: : Height: 162.56 cm Admit Date: Weight: 122.02 kg Admission Status: Outpatient BSA / BMI: 2.22 m2 / 46.17 [facility] [place] Blood Pressure: 124 /86 mmHg Study Type: TRANSTHORACIC ECHO (TTE) COMPLETE Diagnosis/ICD: Supraventricular tachycardia-I47.1; Abnormalelectrocardiogram [ECG] [EKG]-R94.31; Palpitations-R00.2 Indication: Edema, HTN, Hyperlipidemia, Carotid Stenosis, CARO,CKD-Stage III, Morbid Obesity CPT Codes: Echo Complete w Full Doppler-70024 Study Detail: The following Echo studies were [...] (0.6-0.9m/s) AORTA: Asc Ao Diam 2.66 cm [id number] David Castle MD, [facility] Electronically signed on 09/18/2024 at 6:10:05 PM Final Authorizing ProviderResult TypeResult StatusGeethanna Kern [facility] ECHO PROCEDURES Final ResultPerforming OrganizationAddressCity/State/ZIP CodePhone Number SYNGO * (ABNORMAL) Basic Metabolic Panel (01/30/2020 5:25 AM EDT)ComponentValueRef RangeTest MethodAnalysis TimePerformed AtPathologist LiqfhpvfrVgmlztr777(H)74 - 99 mg/dLAD[facility]HE[facility] PQBLhdtgy447805 - 145 mmol/LEDOCTOR'S H[facility] LABPotassium4.23.5 - 5.3 mmol/[facility] ABLTggtewwd05363 - 107 mmol/[facility] YLUEsllmdatimk7052 - 32 mmol/[facility] LABAnion Gap8(L)10 - 20 mmol/[facility] LABUrea Gbyarysl181 - 23 mg/dLADVENTHEALTH [facility] LABCreatinine1.000.50 - 1.05 mg/dLADVENTHEALTH [facility] ER LABGLOMERULAR FILTRATION RATE-NON VBKIZPSJ54(A)>60 mL/min/1.04c4VTUVQHADVENTHEALTH WATERFORD LAK[facility] ER LABGLOMERULAR FILTRATION RATE- HUKGELVW97>60 mL/min/1.94k5FVEOZCADVENTHEALTH WATERFORD L[facility] ER LABComment: CALCULATIONS OF ESTIMATED GFR ARE PERFORMED USING THE MDRD STUDY EQUATION FOR THE IDMS-TRACEABLE CREATININE METHODS. CLIN CHEM 2007;53:766-72 Calcium8.88.6 - 10.3 mg/dLADVENTHEALTH WATER[facility] ER LABSpecimen (Source)Anatomical Location / LateralityCollection Method / VolumeCollection TimeReceived Time 01/30/2020 5:25 AM EDT1 6:26 AM EDT Narrative Authorizing ProviderResult TypeResult StatusMatthew Anna CHO BLOOD ORDERABLESFinal ResultPerforming OrganizationAddressCity/State/ZIP CodePhone Number [facility] LAB from Last 3 Months or Most Recently Relevant to Health Maintenance Insurance MemberSubscriberPlan / Payer (Effective 2008-Present)Name:Usha Walker Member ID:[id number] Relation to Subscriber:SelfName:Usha Walker Subscriber ID:[id number] Payer ID:Not on file Group ID:Not on file Type:Not on file Address: [place] [phone] Care Teams Team MemberRelationshipSpecialtyStart DateEnd Date Roc Steele MD [address] [facility] [address] [place] [address] [facility] - General10/04/22
--- OUTSIDE RECORDS SUMMARY | 2025-04-16 12:05 | XMS_ITS | Encounter Summary ---
Author Organization [facility] Address [address] [place] [address] Care Team Providers Care Loading Machine Operator Helper Name Role Phone Roc Steele MD Primary Care Provider [phone] Roc Steele MD Unavailable [phone] RitchieBulljulianojean-claude DO Unavailable [phone] Gladis Laird LPN Unavailable Encounter Details DateTypeDepartmentCare Team (Latest Contact Info)Efbaqmkmqzq20/16/2025Abstract [facility] [address] [place] [address] Roc Steele MD [address] [facility] [address] [place], [place] [id number] Social History Tobacco UseTypesPacks/DayYears UsedDateSmoking Tobacco: NeverSmokeless [...] relatives?Once a week11/25/2022How often do you attend baptism or jehovah's witness services?Never11/25/2022o you belong to any clubs or organizations such as baptism groups, unions, [email or web address] or athletic groups, or school groups?No11/25/2022How often do you attend meetings of the clubs or organizations you belong to?Never11/25/2022re you , , , , never , or living with a partner?Uckvngd1211/25/2022 AUDIT-CAnswerDate RecordedQ1: How often do you have [...] hard at all11/25/2022HQ-2 AnswerDate RecordedPatient Health Questionnaire-2 Xwuwy354Finlakeview [facility] Page of Occupational Health - Occupational Stress QuestionnaireAnswerDate RecordedDo you feel stress - tense, restless, nervous, or anxious, or unable to sleep at night because yourmind is troubled all the time - these days?Only a xzihgb1811/25/2022Exercise Vital SignAnswerDate RecordedOn average, how many days [...] steady place to sleep or slept in [place] (including now)?No11/25/2022CommentsUnknownSex and Gender InformationValueDate RecordedSex Assigned at BirthNot on fileLegal SexFemale 07/13/2022 7:20 PM EDTGender IdentityNot on fileSexual OrientationNot on file documented as of this encounter Plan of Treatment DateTypeDepartmentCare Team (Latest Contact Info)Zhpxoivwjcs81/19/2025 11:30 AM ESTOffice Visit [facility] [address] [facility] [address] [place] [address] Sushila Nieves PA [address] [place] [address] 06/05/2025 1:40 PM ESTProcedure Visit [facility] [address] [place] [address] Alex Tam DPM [address] [facility] [place], [place] [address] [place] [address] documented as of this encounter Goals GoalPatient Goal TypeAssociated ProblemsRecent ProgressPatient-Stated?Author Help patient manage antidepressant medication Care PlanPatient on antidepressant monitoring GAURAV DodsonAdocumented as of this encounter Visit Diagnoses Not on filedocumented in this encounter Additional Health Concerns Active ProblemsNoted DateDiagnosed DatePatient on antidepressant monitoring plan 5AssessmentNoted TimePHQ-9 Depression Total Score: 3:00 PM ESTdocumented as of this encounter Care Teams Team MemberRelationshipSpecialtyStart DateEnd Roc Steele MD [address] [place] [address] PCP - GeneralInternal Medicine09/28/22 Roc Steele MD [address] [place] [address] PCP - ACO Reach08/30/23 Luis Felipe Dugan DO [address] [place] [address] Referring UrdmatstrFhvawlrhv97/7/24 Gladis Laird LPN [address] [place] [address] 07/19/24documented as of this encounter
--- OUTSIDE RECORDS SUMMARY | 2025-04-16 12:05 | XMS_ITS | Encounter Summary ---
Author Organization [facility] Address [address] [place] [address] Care Team Providers Care Communications Specialist Name Role Phone Roc Steele MD Primary Care Provider [phone] Roc Steele MD Unavailable Luis Felipe Dugan DO Unavailable [phone] Gladis Laird LPN Unavailable Encounter Details DateTypeDepartmentCare Team (Latest Contact Info)Pjuvhghzeta34/11/2025Travel Social History Tobacco UseTypesPacks/DayYears UsedDateSmoking Tobacco: NeverSmokeless [...] relatives?Once a week11/25/2022How often do you attend bahai or roman catholic services?Never11/25/2022o you belong to any clubs or organizations such as bahai groups, unions, fraternal or athletic groups, or school groups?No11/25/2022How often do you attend meetings of the clubs or organizations you belong to?Never11/25/2022re you , , , , never , or living with a partner?Uzblijr3011/25/2022 AUDIT-CAnswerDate RecordedQ1: How often do you have [...] hard at all11/25/2022HQ-2 AnswerDate RecordedPatient Health Questionnaire-2 Sdbgf204Finameric[facility] [place] of Occupational Health - Occupational Stress QuestionnaireAnswerDate RecordedDo you feel stress - tense, restless, nervous, or anxious, or unable to sleep at night because yourmind is troubled all the time - these days?Only a gndodm2911/25/2022Exercise Vital SignAnswerDate RecordedOn average, how many days [...] 1:06 PM PAPO [place] Patient Health Questionnaire-2 Zfdow038 1:06 PM PAPO [place] documented as of this encounter Plan of Treatment DateTypeDepartmentCare Team (Latest Contact Info)Zzkwycssbsu47/19/2025 11:30 AM ESTOffice Visit [facility] [address] [place] [address] Sushila Nieves PA [address] [place] [address] 06/05/2025 1:40 PM ESTProcedure Visit [facility] [address] [place] [address] Alex Tam, DPRen [address] [facility] [address] [place] [address] documented as of this encounter Goals GoalPatient [...] MemberRelationshipSpecialtyStart DateEnd Date Roc Steele MD [address] [facility] 110 [place] [address] PCP - GeneralInternal Medicine09/28/22 Roc Steele MD [address] [facility] 110 [place] [address] PCP - ACO Reach08/30/23 Luis Felipe Dugan DO [address] [place] [address] Referring WouogrlgaAcfhmpmcy17/7/24 Gladis Laird LPN [address] [facility] 110 [place] [address] 07/19/24documented as of this encounter
--- OUTSIDE RECORDS SUMMARY | 2025-04-16 12:05 | XMS_ITS | Clinical Summary ---
Author Organization [facility] Address [address] [place] [address] Care Team Providers Care Bread Wrapper Name Role Phone Roc Steele MD Primary Care Provider [phone] Roc Steele MD Unavailable [phone] Luis Felipe uDgan DO Unavailable [phone] Gladis Laird LPN Unavailable Allergies Active AllergyReactionsCriticalityNoted RrgtKmjuxxkuTxhvvrghuzlkv17/02/2023 Other Reaction(s): Unknown Guktvyskkjcbni95/02/2023 Other Reaction(s): Unknown OwkfehgzafvsWbecfhimejmHobg03/02/2023 Other Reaction(s): Tongue Swelling ; Trouble Breathing Bosnxtpikdgtr46/02/2023 Other Reaction(s): Unkown Medications MedicationSigDispense QuantityRefillsLast FilledStart [...] (20 mg) by mouth Daily 90 tablet 303/009124/6Active Additional Information Patient taking differently:20 mg OralAs [...] next 30 min. 12 tablet /ctive HYDROcodone-acetaminophen ([place]) 5-325 MG tablet Indications:Lumbosacral spondylosis without myelopathyTake [...] and 25 mg before bedtime./03/2025 Discontinued(Reorder) HYDROcodone-acetaminophen ([place]) 5-325 MG tablet Indications:Lumbosacral spondylosis without myelopathyTake [...] Problems ProblemNoted DateDiagnosed DateToe pain, right06/15/2023llergic rhinitis 09/30/20221120Qephanf75/02/2023enign essential adccpdvscnpp29/02/2023reast lhnfvbei10/02/5984Lmqztdxbetlg62/02/2023hronic cough09/30/2022ecreased estrogen level09/30/2022ifficulty qvopdoe6709/30/2022iverticulosis of colon 09/30/20225361Wicbf19/02/2023resence of other bone and tendon /02/2023 Gastroesophageal reflux dzuskym9109/30/20222295Bvvjmndbxxtplt13/02/2023IGT (impaired glucose tolerance)09/30/20221366Kqvqdhwr67/02/2023Exudative age-related macular degeneration of left eye with active choroidal vyrnpigmdzuwtadjxv30/02/2023 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 09/30/2022Internal derangement of right lovheszi08/02/2023Loss of smell 09/30/2022Loss of taste09/30/2022Low back pain09/30/2022Lumbosacral spondylosis without aahvwdjpus08/02/2023Morbid obesity due to excess ftmevtnb98/02/2023 Obstructive sleep apnea09/30/2022Occlusion of carotid artery without cerebral iqqziudmph19/02/2023egenerative joint disease involving multiple joints 09/30/20222376Dphyoebzsaowwn73/02/3768Wzzyalimbk66/02/2023aroxysmal supraventricular wlcnpmwtggy07/02/2023rimary osteoarthritis of right hip 09/30/2022Recurrent falls09/30/2022Vitamin D vgntjskcuo13/02/2023 Encounters DateTypeDepartmentCare HsviBdhdstxhjqz42/16/2025bstract [facility] [address] [place] [address] Roc Steele MD 04/10/2025 1:00 PM ESTOffice Visit [facility] [address] [place] [address] Aarti Castillo, DEISY Benign essential hypertension (Primary Dx); Anxiety; Age-related osteoporosis without current pathological fracture; Lumbosacral spondylosis without myelopathy; Acute non-recurrent nfuwxbkbwqao37/11/2025amboo flowsheet [facility] [address] [place] [address] Aarti Castillo, DEISY 04/10/20256471Zpbejf70/08/2025Patient Outreach [facility] [address] [place] [address] Gladis Laird LPN 03/31/2025Patient Outreach [facility] [address] [place] [address] Gladis Laird LPN 03/28/2025linisync Result Encounter [facility] External Department Unsolicited Provider, Generic External Data 03/26/2025Orders Only [facility] [address] [place] [address] Aarti Castillo NP Qcvwbol5503/24/2025Patient Outreach [facility] [address] [place] [address] Gladis Laird LPN 03/19/2025Refill [facility] [address] [place] [address] Aarti Castillo NP Primary jwodccqg11/17/2025Patient Outreach [facility] [address] [place] [address] Gladis Laird LPN 03/13/2025 2:40 PM ESTProcedure Visit [facility] [address] [place] [address] Alex Tam DPM Pain due to onychomycosis of toenails of both feet (Primary Dx)03/13/2025 1:30 PM ESTOffice Visit [facility] [facility] [address] [place] [address] Aarti Castillo, DEISY Closed fracture of left ankle, sequela (Primary Dx); Anxiety; Lumbosacral spondylosis without /13/2025amboo flowsheet [facility] [facility] [address] [place] [address] Aarti Castillo, DEISY 03/13/20251836Qiaxlb47/10/2025Patient Outreach [facility] [address] [place] [address] Doris Longo LPN 03/07/2025Patient Outreach [facility] [address] [place] [address] Doris Longo, CASE MANAGEMENT SPECIALIST 02/28/2025Patient Outreach [facility] [address] [place] [address] Doris Longo, CASE MANAGEMENT SPECIALIST 02/24/2025Patient Outreach [facility] [address] [place] [address] Doris Longo, CASE MANAGEMENT SPECIALIST 02/18/2025Patient Outreach [facility] [address] [place] [address] Gladis Laird LPN 02/17/2025linisync Result Encounter [facility] External Department Unsolicited Provider, Generic External Data 02/13/2025Patient Outreach [facility] [address] [place] [address] Doris Longo, CASE MANAGEMENT SPECIALIST 02/03/2025Patient Outreach [facility] [address] [place] [address] Doris Longo, CASE MANAGEMENT SPECIALIST 01/27/2025Patient Outreach [facility] [address] [place] [address] Doris Longo, CASE MANAGEMENT SPECIALIST 01/23/2025linisync Result Encounter [facility] External Department Unsolicited Provider, Generic External Data 01/15/2025Patient Outreach [facility] [address] [address] Doris Longo LPN from Last 3 Months Immunizations ImmunizationAdministration DatesNext DueInfluenza, High Dose Seasonal, Preservative Free01/31/2018,01/25/2017Influenza, High-dose Seasonal, Quadrivalent, Preservative Free03/05/2024,03/01/2023,03/23/2022Influenza, Seasonal, Quadrivalent, Tdegxdldlq28/30/2021Influenza, injectable, quadrivalent 02/02/2016Influenza, injectable, quadrivalent, preservative free01/30/2020 Influenza, seasonal, intradermal, preservative free01/30/2015,02/07/2014Moderna Bivalent Booster Huahmhnlohg90/01/2022Pneumococcal Conjugate PCV Pneumococcal Polysaccharide PBSO9100Zoster, Hkptqwfetau74/28/2020, 05/16/2019Zoster, live01/17/2012 Family History Medical HistoryRelationNameCommentsAortic aneurysmFatherAortic [...] relatives?Once a week11/25/2022How often do you attend catholic or alevism services?Never11/25/2022o you belong to any clubs or organizations such as catholic groups, unions, fraternal or athletic groups, or school groups?No11/25/2022How often do you attend meetings of the clubs or organizations you belong to?Never11/25/2022re you , , , , never , or living with a partner?Ijirpbm3811/25/2022 AUDIT-CAnswerDate RecordedQ1: How often do you have [...] hard at all11/25/2022HQ-2 AnswerDate RecordedPatient Health Questionnaire-2 Sqfkd121Finblue mountain hospital [place] of Occupational Health - Occupational Stress QuestionnaireAnswerDate RecordedDo you feel stress - tense, restless, nervous, or anxious, or unable to sleep at night because yourmind is troubled all the time - these days?Only a owqglx7211/25/2022Exercise Vital SignAnswerDate RecordedOn average, how many days [...] steady place to sleep or slept in [facility] (including now)?No11/25/2022CommentsUnknownSex and Gender InformationValueDate RecordedSex Assigned at BirthNot on fileLegal SexFemale 07/13/2022 7:20 PM EDTGender IdentityNot on fileSexual OrientationNot on file Last Filed Vital Signs Vital SignReadingTime TakenCommentsBlood Tqhdcsrk169/7804/10/2025 1:18 PM EST Ehnew511204/10/2025 1:18 PM ESTTemperature--Respiratory Zcdn046306/11/2024 1:18 PM ESTOxygen Xslwkwvird65%04/10/2025 1:18 PM ESTInhaled Oxygen Concentration-- Ugqrsd021 kg (268 lb)04/10/2025 1:18 PM SUHHtazyy035.5 cm (5' 2 )04/10/2025 1:18 PM ESTBody Mass Index49.02106/11/2024 1:18 PM EST Plan of Treatment DateTypeDepartmentCare Team (Latest Contact Info)Bhcsgpoymgp78/ 11:30 AM ESTOffice Visit [facility] [address] [facility] [address] [place] [address] Sushila Nieves PA [address] [place] [address] 06/05/2025 1:40 PM ESTProcedure Visit [facility] [address] [place] [address] Alex Tam, DPRen 3006 [facility] [address] [place] [address] Health MaintenanceDue DateLast DoneCommentsCOVID-19 Vaccine ( season) 502/12/2023, 03/31/2022, 03/31/2022, Additional history exists ThtrkpwarriSyinqtqmcxbd88/03/2013Colorectal Cancer ScreeningDiscontinued Pneumococcal Vaccine: 65+ TxjxwQchribvbl52/10/2015, 12/11/2013Influenza Vaccine Vnmtfpzvc93/14/2025, 03/05/2024, 03/01/2023, Additional history existsCT ColonographyDiscontinuedFIT-DNADiscontinuedFITDiscontinuedFOBTDiscontinued SigmoidoscopyDiscontinued Goals GoalPatient Goal TypeAssociated ProblemsRecent ProgressPatient-Stated?Author Help patient manage antidepressant medication Care PlanPatient on antidepressant monitoring PAPO Dodson Procedures Procedure NamePriorityDate/TimeAssociated DiagnosisCommentsXR ANKLE LT MIN 3V 03/28/2025 10:26 AM EST XR ANKLE LT MIN 3V1 1:59 PM EDT XR ANKLE LT MIN 3V01/23/2025 1:46 PM EDT FBJGLDWBVOZZubzcfi21/03/2013 12:00 PM EDT from Last 3 Months or Most Recently Relevant to Health Maintenance Results * XR ANKLE LT MIN 3V (03/28/2025 10:26 AM EST) Only the most recent of3 resultswithin the time period is included. Anatomical RegionLateralityModalityOtherSpecimen (Source)Anatomical Location / LateralityCollection Method / VolumeCollection TimeReceived Time03/28/2025 10:26 AM EST Narrative 03/28/2025 10:28 AM EST [facility] ?[address] ? [place] [address] ?XRay Report ? Signed ? Patient: USHA RIBEIRO ?MR#: [id number] ?? : 1945 ?Acct:[id number] ?? Age/Sex: 79 / F ?ADM Date: 03/28/25 ?? Loc: LAB ? Attending Dr: Kelly Zepeda D.P.M. ? Ordering Physician: Kelly Zepeda D.P.M. ?? Date of Service: 03/28/25 ?? Procedure(s): XR ankle LT min 3V ?? Accession Number(s): [id number] ? cc: ROC STEELE ; Kelly Zepeda D.P.M. ? [facility] ? [address] ? [place] [address] ? Patient Name: ?? USHA RIBEIRO ? MRN: [facility]:[id number] ? date: 1945 ?Sex: F ?? Assigned Patient Location: LAB ?? Current Patient Location: LAB ?? Accession/Order Number: [id number] ?? Exam Date: 03/28/2025 ??10:06 ?Report Date: [...] M.D. ??03/28/2025 10:26 AM ? Dictation Location: [place] [address] ? Electronically authenticated by: [id number] ??Y ?? Date: 03/28/2025 ??10:26 ? Dictated By: ?Sushila Zeng M.D. ? Signed By: ?03/28/25 1028 ? DD/ 1026 ? TD/TT: ? Head Paper Tester: Procedure Note Radiology, Radiologist, MD - 03/28/2025 [place] [address] XRay Report Signed Patient: USHA RIBEIRO KMR#: [id number] : 1945cct:[id number] Age/Sex: 79 / FADM Date: 03/28/25 Loc: LAB Attending Dr: Kelly Zepeda D.P.M. Ordering Physician: Kelly Zepeda D.P.M. Date of Service: 03/28/25 Procedure(s): XR ankle LT min 3V Accession Number(s): [id number] cc: ROC STEELE ; Kelly Zepeda D.P.M. The [place] [address] Patient Name: USHA RIBEIRO MRN: [id number] date: 1945 Sex: F Assigned Patient Location: LAB Current Patient Location: LAB Accession/Order Number: [id number] Exam Date: 03/28/2025 10:06 Report Date: 03/28/2025 [...] Zeng M.D. 03/28/2025 10:26 AM Dictation Location: [place] [address] Electronically authenticated by: [id number] Y Date: 0:26 Dictated By: Sushila Zeng M.D. Signed By:03/28/25 1028 DD/ 1026 TD/TT: Head Paper Tester: Authorizing ProviderResult TypeResult StatusGeneric External Data Provider [facility]NC IMAGINGFinal Result * Colonoscopy (10/31/2012 12:00 PM EDT)Anatomical RegionLateralityModality EndoscopySpecimen (Source)Anatomical Location / LateralityCollection Method / VolumeCollection TimeReceived Time10/31/2012 12:00 PM EDT Narrative 10/31/2012 12:00 PM EDT PERFORMED AT [facility] LOCATION:[id number] DIVERTICULOSIS Procedure Note CONVERSION, GENERIC - 09/15/2022 PERFORMED AT [facility] LOCATION:[id number] DIVERTICULOSIS Authorizing ProviderResult TypeResult StatusDalaura Steele MDENDOSCOPY PROCEDURE ORDERABLESFinal Result from Last 3 Months or Most Recently Relevant to Health Maintenance Additional Health Concerns Active ProblemsNoted DateDiagnosed DatePatient on antidepressant monitoring plan 04/10/2025 Insurance Care Teams Team MemberRelationshipSpecialtyStart DateEnd Roc Steele MD [address] [facility] 110 [place] [address] PCP - GeneralInternal Medicine09/28/22 Roc Steele MD [address] [facility] 110 [place] [address] PCP - ACO Reach08/30/23 Luis Felipe Dugan DO [address] [place] [address] Referring CpmycwvxrMdhruxgam34/7/24 Gladis Laird LPN [address] [facility] [address] [place] [address] 07/19/24
--- OUTSIDE RECORDS SUMMARY | 2025-04-16 12:05 | XMS_ITS ---
Author Organization [facility] Address [address] [place] [address] Care Team Providers Care Client Account Specialist Name Role Phone Roc Steele MD Primary Care Provider [phone] Roc Steele MD Unavailable [phone] Luis Felipe Dugan DO Unavailable [phone] Gladis Laird LPN Unavailable 30 Day Monitoring Program Status:Closed (Closed) Start date:03/10/2025 Enrollment date:03/10/2025 Enrollment reason:Identified from transitional care managment End date:04/09/2025 Close reason:Actively enrolled in CCM Continued Care and Services Coordination
--- OUTSIDE RECORDS SUMMARY | 2025-04-16 12:05 | XMS_ITS ---
Author Organization [facility] Address [address] [place] [address] Care Team Providers Care Miniature Model Maker Name Role Phone Roc Steele MD Primary Care Provider Roc Steele MD Unavailable [phone] Luis Felipe Dugan DO Unavailable [phone] Gladis Laird LPN Unavailable Inpatient Discharge Transitional Care Management (TCM) Status:Enrolled (Active) Start date:04/15/2025 Enrollment date:04/16/2025 Enrollment reason:Identified using discharge data Overview Patient discharged from [facility] on 04/15. Please contact for hospital FRANSISCA and schedule follow-up appointment within 7-14 days. NameDanette Laird LPN(Responsible Staff)[phone] Continued Care and Services Coordination
--- OUTSIDE RECORDS SUMMARY | 2025-04-16 12:05 | XMS_ITS | Encounter Summary ---
Author Organization [facility] Address [address] [place] [address] Care Team Providers Care Commercial Production Editor Name Role Phone Roc Steele MD Primary Care Provider [phone] Roc Steele MD Unavailable [phone] Luis Felipe Dugan DO Unavailable [phone] Gladis Laird LPN Unavailable Encounter Details DateTypeDepartmentCare Team (Latest Contact Info)Hrlntfwlgxd50/08/2025Patient Outreach [facility] [address] [place] [address] Gladis Laird LPN [address] [place] [address] Social History Tobacco UseTypesPacks/DayYears UsedDateSmoking Tobacco: NeverSmokeless [...] relatives?Once a week11/25/2022How often do you attend lutheran or yarsanism services?Never11/25/2022o you belong to any clubs or organizations such as lutheran groups, unions, fraternal or athletic groups, or school groups?No11/25/2022How often do you attend meetings of the clubs or organizations you belong to?Never11/25/2022re you , , , , never , or living with a partner?Bqdbove0711/25/2022 AUDIT-CAnswerDate RecordedQ1: How often do you have [...] hard at all11/25/2022HQ-2 AnswerDate RecordedPatient Health Questionnaire-2 Slsdk181[facility] [place] of Occupational Health - Occupational Stress QuestionnaireAnswerDate RecordedDo you feel stress - tense, restless, nervous, or anxious, or unable to sleep at night because yourmind is troubled all the time - these days?Only a vkwzzs6011/25/2022Exercise Vital SignAnswerDate RecordedOn average, how many days [...] steady place to sleep or slept in [place] (including now)?No11/25/2022CommentsUnknownSex and Gender InformationValueDate RecordedSex Assigned [...] Flowsheet Row Patient Outreach from 04/07/2025 in [facility] with Gladis Laird LPN Week Number Call [...] Plan of Treatment DateTypeDepartmentCare Team (Latest Contact Info)Oqkdhobglys86/19/2025 11:30 AM ESTOffice Visit [facility] [place] [facility] [address] [place] [address] Sushila Nieves PA [address] [place] [address] 06/05/2025 1:40 PM ESTProcedure Visit [facility] [address] [place] [address] Alex Tam DPM [address] [facility] [place], [place] [address] [place] [address] documented as of this encounter Visit Diagnoses Diagnosis Benign essential hypertension- Primary Essential hypertension, benign Hyperlipidemia, unspecified hyperlipidemia type documented in this encounter Additional Health Concerns AssessmentNoted TimePHQ-9 Depression Total Score: 3:00 PM EST documented as of this encounter Care Teams Team MemberRelationshipSpecialtyStart DateEnd Date Roc Steele MD [address] [place] [address] PCP - GeneralInternal Medicine09/28/22 Roc Steele MD [address] [place] [address] PCP - ACO Reach08/30/23 Luis Felipe Dugan DO [address] [place] [address] Referring CajrefqnsOurpwumel84/7/24 Gladis Laird LPN [address] [facility] [address] [place] [address] 07/19/24documented as of this encounter
--- OUTSIDE RECORDS SUMMARY | 2025-04-16 12:05 | XMS_ITS | Encounter Summary ---
Author Organization [facility] Address [address] [place] [address] Care Team Providers Care Drilling Engineering Manager Name Role Phone Roc Steele MD Primary Care Provider [phone] Roc Steele MD Unavailable [phone] Luis Felipe Dugan DO Unavailable [phone] Gladis Laird LPN Unavailable Encounter Details DateTypeDepartmentCare Team (Latest Contact Info)Iwbqldldhpq18/11/2025Bamboo flowsheet [facility] [place] [facility] [address] [place] [phone] Aarti Castillo, WORM RAISER [address] [place], [place] [id number] Social History Tobacco UseTypesPacks/DayYears UsedDateSmoking Tobacco: NeverSmokeless [...] relatives?Once a week11/25/2022How often do you attend sikhism or yazidi services?Never11/25/2022o you belong to any clubs or organizations such as sikhism groups, unions, fraSynovex or athletic groups, or school groups?No11/25/2022How often do you attend meetings of the clubs or organizations you belong to?Never11/25/2022re you , , , , never , or living with a partner?Pzbvoui9811/25/2022 AUDIT-CAnswerDate RecordedQ1: How often do you have [...] hard at all11/25/2022HQ-2 AnswerDate RecordedPatient Health Questionnaire-2 Unefg291[facility] [place] of Occupational Health - Occupational Stress QuestionnaireAnswerDate RecordedDo you feel stress - tense, restless, nervous, or anxious, or unable to sleep at night because yourmind is troubled all the time - these days?Only a otgqbl2711/25/2022Exercise Vital SignAnswerDate RecordedOn average, how many days [...] steady place to sleep or slept in [place] (including now)?No11/25/2022CommentsUnknownSex and Gender InformationValueDate RecordedSex Assigned at BirthNot on fileLegal SexFemale 07/13/2022 7:20 PM EDTGender IdentityNot on fileSexual OrientationNot on file documented as of this encounter Plan of Treatment DateTypeDepartmentCare Team (Latest Contact Info)Izoueatapgq87/19/2025 11:30 AM ESTOffice Visit [facility] [place] [facility] [address] [facility] [address] [place] [phone] Sushila Nieves PA [address] [place] [address] 06/05/2025 1:40 PM ESTProcedure Visit [facility] [address] [place] [phone] Alex Tam DPM [address] [address] documented as of this encounter Goals GoalPatient Goal TypeAssociated ProblemsRecent ProgressPatient-Stated?Author Help patient manage antidepressant medication Care PlanPatient on antidepressant monitoring planGAURAV De La TorreAdocumented as of this encounter Visit Diagnoses Not on filedocumented in this encounter Additional Health Concerns Active ProblemsNoted DateDiagnosed DatePatient on antidepressant monitoring plan 5AssessmentNoted TimePHQ-9 Depression Total Score: 3:00 PM ESTdocumented as of this encounter Care Teams Team MemberRelationshipSpecialtyStart DateEnd Date Roc Steele MD [address] [place] [address] PCP - GeneralInternal Medicine09/28/22 Roc Steele MD [address] [place] [address] PCP - ACO Reach08/30/23 Luis Felipe Dugan DO [address] [place] [address] Referring MbrydhbzzJlumpxroe62/7/24 Gladis Laird LPN [address] [place] [address] 07/19/24documented as of this encounter
--- OUTSIDE RECORDS SUMMARY | 2025-04-16 12:05 | XMS_ITS | Clinical Summary ---
Author Organization [facility] Address [address] [place] [address], [address] [place] [address] Care Team Providers Care Sinker Winder Name Role Phone Unavailable Primary Care Provider Unavailabl e Social History Tobacco UseTypesPacks/DayYears UsedDateSmoking Tobacco: Never Assessed CommentsUnknownSex and Gender InformationValueDate RecordedSex Assigned at Not on fileLegal FsxDbcyuu68/10/2013 4:42 PM ESTGender IdentityNot on fileSexual OrientationNot on file Plan of Treatment Not on file
--- NOTE | 2025-04-16 12:59 | ECG_ITS ---
[facility] Test Date: 2025-04-16 Pat Name: LUMA RIBEIRO Department: Room: - Gender: Female Occupational Ther: : 1945 Requested By: REJI FORRESTER Order Number: [id number] Reading MD: SAUNDRA MCCULLOUGH M.D. Measurements Intervals Decker Rate: 54 P: 65 TX: 184 QRS: -12 QRSD: 112 T: -18 QT: 438 QTc: 423 Interpretive Statements 1100 Sinus rhythm 2320 Nonspecific intraventricular conduction delay 5233 Voltage criteria for LVH 9150 abnormal ECG Compared to ECG 04/14/2025 04:33:48 Intraventricular conduction delay now present Left ventricular hypertrophy now present Electronically Signed On 04-16-2025 20:55:54 EST by SAUNDRA MCCULLOUGH M.D.
--- NOTE | 2025-04-16 13:27 | SWNOTE1 ---
AMARA called pt again, no answer. SW did open pt's chart to document and could see that pt returned to ED and is in the ED now. AMARA called down to the ED and spoke to school attendance secretary. AMARA advised that SW did speak to pt earlier today and attempted to get her to [facility], but no beds available. AMARA advised that pt does have a 3 day inpt stay from her recent admission. Okarche to update the physician.
[2025-04-16 13:32] LABS: Hematocrit 43.3 % (36.0-48.0); Hemoglobin 14.4 g/dL (12.0-16.0); Immature Granulocytes Abs Auto 0.01 10^3/uL (0.00-0.03); Immature Granulocytes Pct Auto 0.1 % (0.0-0.5); Lymphocytes Absolute Auto 1.8 10^3/uL (1.2-3.8); Mean Corpuscular HGB Conc 33.3 g/dL (29.9-35.2); Mean Corpuscular Hemoglobin 32.8 pg (26.7-34.0); Mean Corpuscular Volume 98.6 fL (81.0-99.0); Platelet Count 143 10^3/uL (150-450); Red Blood Count 4.39 10^6/uL (4.20-5.40); White Blood Count 7.4 10^3/uL (4.0-11.0)
--- NOTE | 2025-04-16 13:32 | ED.GENADUL1 ---
HPI HPI - General Adult General Chief complaint: Shortness of Breath/Dyspnea Stated complaint: SOB Time Seen by Provider: 04/16/25 12:57 Source: patient Mode of arrival: ambulance History of Present Illness HPI narrative: The patient is a 79-year-old female with a known past medical history of acute kidney injury, hypertension, atrial fibrillation, congestive heart failure, CKD, neuropathy, hyperlipidemia, bilateral ankle fracture, lumbar stenosis with neurologic claudication, and closed head injury. Patient's presenting to the emergency department today with shortness of breath and dyspnea. The patient was just discharged yesterday from the hospital from a hospitalization for congestive heart failure. She was admitted April 12. The patient reported that she had an evaluation by physical therapy who stated that they believe that the patient needed inpatient rehab. However the patient declined stating that she thought she could do it herself and she wanted to go home. Patient went home. She was so weak she had to go to bed as soon as she got home. Then she was unable to get herself up during the remainder of the night. She was so weak. Every time she tried to stand up she felt like she was going into congestive heart failure/atrial fibrillation again. She was unable to catch her breath. In addition, the patient stated that she felt lightheaded and unsteady on her feet like she was going to fall. Patient at this time wants placement in a halfway. She states that she is no longer able to care for herself. No fever or chills. No new complaints. Related Data Home Medications ?Medication ?Instructions ?Recorded ?Confirmed simvastatin 10 mg tablet 10 mg PO DAILY 12/01/22 04/16/25 fexofenadine 180 mg tablet 180 mg PO DAILY 12/26/24 04/16/25 (Radha Allergy) gabapentin 300 mg capsule 300 mg PO BID 12/26/24 04/16/25 magnesium oxide 400 mg (241.3 mg 400 mg PO DAILY 12/26/24 04/16/25 magnesium) tablet isosorbide mononitrate 30 mg 30 mg PO DAILY 12/28/24 04/16/25 tablet,extended release 24 hr hydralazine 25 mg tablet 25 mg PO BID 03/27/25 04/16/25 Held on 04/15/25. Instructions: Resume on 04/22/25. To be resumed by PCP hydrocodone 5 mg-acetaminophen 325 1 tab PO Q4H PRN pain 03/27/25 04/16/25 mg tablet alendronate 70 mg tablet 70 mg PO .WEEKLY 04/12/25 04/16/25 alprazolam 0.25 mg tablet 0.25 mg PO BID PRN anxiety 04/12/25 04/16/25 escitalopram oxalate 10 mg tablet 10 mg PO HS 04/12/25 04/16/25 nortriptyline 10 mg capsule 30 mg PO .QHS 04/12/25 04/16/25 pantoprazole 40 mg tablet,delayed 40 mg PO DAILY 04/12/25 04/16/25 release zolpidem 10 mg tablet 10 mg PO .qhs PRN sleep 04/12/25 04/16/25 Previous Rx's ?Medication ?Instructions ?Recorded cholecalciferol (vitamin D3) 50 50 mcg PO DAILY #30 tabs 12/29/24 mcg (2,000 unit) tablet (Vitamin D3) tizanidine 4 mg tablet 2 mg (1/2 x 4 mg) PO Q8H PRN 12/29/24 Muscle spasm #0 tabs aspirin 81 mg tablet 81 mg PO DAILY 30 days #30 tabs 04/15/25 metoprolol succinate 100 mg 100 mg PO DAILY #0 tabs 04/15/25 tablet,extended release 24 hr Allergies Allergy/AdvReac Type Severity Reaction Status Date / Time clarithromycin Allergy Severe Rash Verified 04/12/25 14:42 moxifloxacin (From Avelox) Allergy Severe tongue Verified 04/12/25 14:42 swelling Sulfa (Sulfonamide Allergy Unknown Unknown Verified 04/12/25 14:42 Antibiotics) ciprofloxacin (From Cipro) Allergy Rash Verified 04/12/25 14:42 Opioid HPI Opioid Management Most Recent Opioid Data: Last Pain Scale 0 04/15/25, 10:47 Last Pain Intensity 0 04/15/25, 10:47 Last Pain Assessment 04/15/25, 09:00 Last ORT Total Score 0 04/12/25, 17:21 Last ORT Risk Category Low Risk 04/12/25, 17:21 Review of Systems ROS Status of ROS 10 or more systems reviewed and unremarkable except as noted in history and below [facility] Medical History Benign essential hypertension ?I10 - Essential (primary) hypertension (ICD-10) Chronic heart failure with preserved ejection fraction (HFpEF) ?I50.32 - Chronic diastolic (congestive) heart failure (ICD-10) Generalized weakness ?R53.1 - Weakness (ICD-10) Fall ?W19.XXXA - Unspecified fall, initial encounter (ICD-10) Pulmonary edema ?J81.1 - Chronic pulmonary edema (ICD-10) Closed head injury ?S09.90XA - Unspecified injury of head, initial encounter (ICD-10) Contusion of right knee ?S80.01XA - Contusion of right knee, initial encounter (ICD-10) Abrasion of elbow, right ?S50.311A - Abrasion of right elbow, initial encounter (ICD-10) Pneumonia ?J18.9 - Pneumonia, unspecified organism (ICD-10) Acute CHF (congestive heart failure) ?I50.9 - Heart failure, unspecified (ICD-10) Community acquired pneumonia ?J18.9 - Pneumonia, unspecified organism (ICD-10) GERD without esophagitis ?K21.9 - Gastro-esophageal reflux disease without esophagitis (ICD-10) Lump of left breast ?N63.20 - Unspecified lump in the left breast, unspecified quadrant (ICD-10) High cholesterol ?E78.00 - Pure hypercholesterolemia, unspecified (ICD-10) Anxiety ?F41.9 - Anxiety disorder, unspecified (ICD-10) Macular degeneration ?H35.30 - Unspecified macular degeneration (ICD-10) Degenerative disc disease Fibromyalgia ?M79.7 - Fibromyalgia (ICD-10) Right shoulder pain ?M25.511 - Pain in right shoulder (ICD-10) Sleep apnea ?G47.30 - Sleep apnea, unspecified (ICD-10) Surgical History Carpal tunnel syndrome, left ?G56.02 - Carpal tunnel syndrome, left upper limb (ICD-10) History of arthroplasty of right ankle ?Z96.661 - Presence of right artificial ankle joint (ICD-10) History of bilateral knee replacement ?Z96.653 - Presence of artificial knee joint, bilateral (ICD-10) History of right hip replacement ?Z96.641 - Presence of right artificial hip joint (ICD-10) Family History Mother Family history of CHF (congestive heart failure) Sister Family history of CHF (congestive heart failure) Son Family history of cancer Family history of diabetes mellitus Family history of hypertension Social History Within the past year, how often did you have a drink containing alcohol: never Score interpretation: A score less than 3 is consistent with normal alcohol consumption. Smoking status: Never smoker Non-prescribed substance use: denies use Previous occupational history: retired Highest level of school completed/degree received: GED or equivalent Are you now , , , , never or living with a partner: In a typical week, how many times do you talk on the telephone with family, friends, or neighbors: 3 or more times per week How often do you get together with friends or relatives: 3 or more times per week How often do you attend episcopal or sikh services: never Little interest or pleasure in doing things: not at all Feeling down, depressed, or hopeless: not at all Feel stressed/tense/nervous/anxious/difficulty sleeping: not at all Do you think of yourself as: straight/heterosexual Gender Identity: female Exam Narrative Exam Narrative: Prior to examining the patient, I have washed with hospital approved and provided Antiseptic Hand House Visitor and have also applied gloves.? Prior to touching the patient, I asked for consent to examine the patient.? General: Alert and oriented, well nourished, mild distress. Patient appears somnolent. Morbidly obese. Eye: PERRL, EOMI, normal conjunctiva. HENT: Normocephalic, normal hearing, dry oral mucosa, no scleral icterus, no sinus tenderness. Neck: Supple, non-tender, no carotid bruits, no JVD, no lymphadenopathy. Lungs: Clear to auscultation and percussion, non-labored respiration. Diminished breath sounds in the bases. No rhonchi, rales, wheezing. Heart: Bradycardic rate, regular rhythm, no murmur, gallop. The patient has nonpitting edema. Abdomen: Soft, non-tender, non-distended, normal bowel sounds, no masses. Obese abdomen Musculoskeletal: Normal range of motion and strength, no tenderness or swelling. Skin: Skin is warm, dry and pink, no rashes or lesions. Neurologic: Awake, alert, and oriented X3, CN II-XII intact. Psychiatric: Cooperative, appropriate mood and affect.? Following the conclusion of the examination, I have washed my hands thoroughly after removing examination gloves. Constitutional Vital Signs, click to edit/add: Last Vital Signs Temp 98.7 F 04/16/25 11:48 Pulse 55 L 04/16/25 15:53 Resp 18 04/16/25 15:53 BP 165/95 H 04/16/25 15:53 Pulse Ox 97 04/16/25 15:53 O2 Del Method Room Air 04/16/25 11:48 Course Course Hospital Course: In summary, the patient is a 79-year-old female who was admitted to the hospital for 4 days and 3 overnights for congestive heart failure/atrial fibrillation. The patient was discharged home after she refused to go to rehab after physical therapy was recommended as an inpatient. Patient now is no longer able to care for herself and she is presenting back to the emergency department for definitive care and management. Vital Signs Vital signs: Vital Signs Temperature 98.7 F 04/16/25 11:48 Pulse Rate 54 L 04/16/25 11:48 Respiratory Rate 18 04/16/25 11:48 Blood Pressure 155/77 H 04/16/25 11:48 Pulse Oximetry 98 04/16/25 11:48 Oxygen Delivery Method Room Air 04/16/25 11:48 Temperature 98.7 F 04/16/25 11:48 Pulse Rate 55 L 04/16/25 15:53 Respiratory Rate 18 04/16/25 15:53 Blood Pressure 165/95 H 04/16/25 15:53 Pulse Oximetry 97 04/16/25 15:53 Oxygen Delivery Method Room Air 04/16/25 11:48 Patient has stable vital signs without any evidence of hypoxia. She does have bradycardia in the 50s. Medical Decision Making MDM Narrative Medical decision making narrative: 79-year-old female presents back to the emergency department after evaluation for congestive heart failure and atrial fibrillation for placement. The patient actually has improved laboratories and improved x-ray. She appears nontoxic and in no acute distress this is a chronic problem with her weakness and deconditioning. Differential Diagnosis Differential Diagnosis: Congestive heart failure, acute coronary syndrome, electrolyte abnormality, Medical Records Medical records reviewed: Yes I reviewed the patient's medical records Lab Data Lab results reviewed: Yes I reviewed the patient's lab results Labs: Lab Results 04/16/25 Range/Units 13:21 WBC 7.4 (4.0-11.0) 10^3/uL RBC 4.39 (4.20-5.40) 10^6/uL Hgb 14.4 (12.0-16.0) g/dL Hct 43.3 (36.0-48.0) % MCV 98.6 (81.0-99.0) fL MCH 32.8 (26.7-34.0) pg MCHC 33.3 (29.9-35.2) g/dL RDW 13.3 (11.0-15.0) % Plt Count 143 L (150-450) 10^3/uL MPV 11.3 (9.5-13.5) fL Neut % (Auto) 59.0 (43.0-75.0) % Lymph % (Auto) 24.2 (20.5-60.0) % Cowley % (Auto) 14.4 H (1.7-12.0) % Eos % (Auto) 1.9 (0.9-7.0) % Baso % (Auto) 0.4 (0.2-2.0) % Neut # (Auto) 4.3 (1.4-6.5) 10^3/uL Lymph # (Auto) 1.8 (1.2-3.8) 10^3/uL Cowley # (Auto) 1.1 H (0.3-0.8) 10^3/uL Eos # (Auto) 0.1 (0.0-0.7) 10^3/uL Baso # (Auto) 0.0 (0.0-0.1) 10^3/uL Abs Immat Gran (auto) 0.01 (0.00-0.03) 10^3/uL Imm/Tot Granulo (auto) 0.1 (0.0-0.5) % Sodium 140 (136-145) mmol/L Potassium 4.2 (3.5-5.1) mmol/L Chloride 104 (98-107) mmol/L Carbon Dioxide 31.6 (21.0-32.0) mmol/L Anion Gap 8.6 BUN 20.0 H (7.0-18.0) mg/dL Creatinine 1.14 H (0.55-1.02) mg/dL Est GFR ( Amer) 56 L (>=60 mL/min/1.73m^2) Est GFR (Non-Af Amer) 46 L (>=60 mL/min/1.73m^2) BUN/Creatinine Ratio 17.5 Glucose 93 (74-106) mg/dL Calcium 9.1 (8.5-10.1) mg/dL Total Bilirubin 1.0 (0.2-1.0) mg/dL AST 22 (15-37) U/L ALT 14 (14-59) U/L Alkaline Phosphatase 99 (46-116) U/L Troponin I High Sens 26.1 (4.0-51.3) pg/mL NT-Pro-B Natriuret Pep 839.0 (<=1800.0) pg/mL Total Protein 7.0 (6.4-8.2) g/dL Albumin 3.2 L (3.4-5.0) g/dL Globulin 3.8 g/dL Albumin/Globulin Ratio 0.8 ECG Data Attestation: I personally reviewed and interpreted this ECG as follows: Interpretation: Twelve-lead EKG: Twelve-lead EKG reveals a sinus rhythm with a ventricular rate of 54 bpm. The TN interval and QRS duration within normal limits. QTc is not prolonged. [place] is normal. No evidence of ST segment elevation or depression chest infection or ischemia. Summary: Nonspecific EKG. I did compare this to the [facility] EKG that was performed by the medics and there is no dynamic morphological changes appreciated. Summary: Nonspecific Discharge Plan Discharge Chief Complaint: Shortness of Breath/Dyspnea Clinical Impression: Sarcopenia, Weakness Patient Disposition: Home, Self-Care Time of Disposition Decision: 16:17 Condition: Fair Mode of Transportation: EMS Prescriptions / Home Meds: No Action simvastatin 10 mg tablet 10 mg PO DAILY magnesium oxide 400 mg (241.3 mg magnesium) tablet 400 mg PO DAILY fexofenadine [Radha Allergy] 180 mg tablet 180 mg PO DAILY gabapentin 300 mg capsule 300 mg PO BID isosorbide mononitrate 30 mg tablet extended release 24 hr 30 mg PO DAILY tizanidine 4 mg Tablet 2 mg PO Q8H PRN (Reason: Muscle spasm) Qty: 0 0RF cholecalciferol (vitamin D3) [Vitamin D3] 50 mcg (2,000 unit) tablet 50 mcg PO DAILY Qty: 30 0RF hydrocodone-acetaminophen 5-325 mg tablet 1 tab PO Q4H PRN (Reason: pain) hydralazine 25 mg tablet 25 mg PO BID alendronate 70 mg tablet 70 mg PO .WEEKLY zolpidem 10 mg tablet 10 mg PO .qhs PRN (Reason: sleep) escitalopram oxalate 10 mg tablet 10 mg PO HS pantoprazole 40 mg tablet,delayed release (DR/EC) 40 mg PO DAILY nortriptyline 10 mg capsule 30 mg PO .QHS alprazolam 0.25 mg tablet 0.25 mg PO BID PRN (Reason: anxiety) aspirin 81 mg tablet 81 mg PO DAILY 30 Days Qty: 30 0RF metoprolol succinate 100 mg tablet extended release 24 hr 100 mg PO DAILY Qty: 0 0RF Print Language: Greek Instructions: Weakness (ED) Referrals: REJI FORRESTER [Primary Care Provider, Internal Medicine] - 1 week
--- NOTE | 2025-04-16 13:45 | XR_ITS ---
[facility] [place] [id number] Patient Name: LUMA RIBEIRO MRN: [id number] date: 1945 Sex: F Assigned Patient Location: ED.MAIN Current Patient Location: ED.MAIN Accession/Order Number: [id number] Exam Date: 04/16/2025 13:40 Report Date: 04/16/2025 14:22 At the request of: DEIDRE PAPPAS DO Procedure: XR chest 1V Single view chest: CLINICAL HISTORY: sob COMPARISON: CT chest 04/12/2025 FINDINGS: Cardiomegaly with chronic interstitial changes. Questionable small bilateral pleural effusions. No pneumothorax or free air. XR/XR chest 1V IMPRESSION: CHF FINDINGS WITH CHRONIC INTERSTITIAL CHANGES. NO DEFINITIVE CONSOLIDATION IS SEEN. Impression dictated by: Jayce De La Garza Jr., D.O. 04/16/2025 2:22 PM Dictation Location: [place] [address] Electronically authenticated by: [id number] Y Date: 04/16/2025 14:22
[2025-04-16 13:52] LABS: Alanine Aminotransferase 14 U/L (14-59); Albumin Globulin Ratio 0.8; Albumin Level 3.2 g/dL (3.4-5.0); Alkaline Phosphatase 99 U/L (46-116); Anion Gap 8.6; Aspartate Amino Transferase 22 U/L (15-37); Blood Urea Nitrogen 20.0 mg/dL (7.0-18.0); Calcium 9.1 mg/dL (8.5-10.1); Carbon Dioxide 31.6 mmol/L (21.0-32.0); Chloride 104 mmol/L (98-107); Estimated GFR (African America 56 (>=60 mL/min/1.73m^2); Estimated GFR (Non-African Ame 46 (>=60 mL/min/1.73m^2); Globulin 3.8 g/dL; Glucose 93 mg/dL (74-106); Potassium 4.2 mmol/L (3.5-5.1); Sodium 140 mmol/L (136-145); Total Protein 7.0 g/dL (6.4-8.2)
[2025-04-16 13:59] LABS: NT Pro B Type Natriuretic Pept 839.0 pg/mL (<=1800.0)
--- NOTE | 2025-04-16 14:23 | SWNOTE1 ---
SW stopped down and spoke to physician in ED in regards to pt. SW did advise that during her stay pt was just recommended to have home health, which she was [facility] with [facility]. Pt was discharged yesterday and therapy was coming today to see pt in the home. AMARA advised that physician that pt does have her 3 day stay, but [facility] does not have openings. SW to speak with pt. SW spoke to pt and son in the room. SW advised that [facility] does not have openings and SW can look at other facilities. They were in agreement. She stated no [facility]. SW provided her names of the facilities in the surrounding area and provided a list from Medicare.gov. Pt would like SW to check [facility]. SW called Reva at [facility] and they have no beds. Pt's son lives in [place] and he requested that pt be close to him. SW let him know the names of the facilities in [place]. SW also let them know that [facility] is close to [place] and there is a [facility] in [place]. PT would like SW to check the [facility] in [place]. AMARA called Pallavi in admissions at [facility]. She voiced they do have openings. SW advised the goal, as long as pt is stable, is to get pt from ED to [facility] in [place]. Pallavi requested the information from her previous hospital admission and the inpt order. SW to send. Pt and son in agreement with plan. Pt did ask about Medicaid for her and the qualifications for [facility] care with Medicaid. SW let her know that SW was not sure on the exact qualifications, but recommended that pt and start the Medicaid process. AMARA did recommend they speak to Meaghan the medical social consultant at [facility] as well. SW to provide pt with Medicaid application.
[2025-04-16 14:26] VITALS: BP 160/90; PULSE 58; O2SAT 97
--- NOTE | 2025-04-16 14:37 | SWNOTE1 ---
Referral sent to Pallavi at [facility]. Referral included face sheet, ED draft note labs from 04/16 and ED triage from 04/16. SW also included information from pt's stay from 04/12-04/15. This included ED note, H&P, provider notes, case management repor, nursing notes, diagnostic imaging, med list, and PT/OT notes.
[2025-04-16 15:53] VITALS: BP 165/95; PULSE 55; O2SAT 97
--- NOTE | 2025-04-16 16:16 | SWNOTE1 ---
AMARA received email from Pallavi at [facility] in [place]. They can accept clinically, but wanted pt to know she only had 32 skilled days left, then it would be out of pocket. Pallavi also had questions about medication. AMARA confirmed the question about med with the ED nurse who spoke to pt and son. AMARA called the son who is in room with pt and went over the 32 skilled days that are left. AMARA provided the out of pocket cost if pt stays past the 100 days. Pt and son voiced understanding. AMARA updated Pallavi at [facility]. [facility] accept. Pt's son will transport. AMARA called ED nurse and let her know. AMARA took packet to ED. AMARA completed PASRR online and sent results and the paperwork to Pallavi.
--- NOTE | 2025-04-16 16:19 | SWNOTE1 ---
Pt is going skilled to [facility] from the ED. Pt had a previous 3 day inpt stay at the [facility].
--- NOTE | 2025-04-16 16:31 | SWNOTE1 ---
SW went down to ED and spoke to pt and pt's son to let them know [facility] has accepted and pt can go this evening. Pt did just order food. SW to let [place] know that it will be around 5:30/6 for arrival. AMARA updated the physician and nurse. AMARA had physician sign CRF and SW left packet and CRF down in the ED to go with pt at discharge. AMARA did call the ED back and let them know pt will need scripts for any controlled substance. AMARA also provided report number to nurse.
--- NOTE | 2025-04-16 16:40 | ED.GENADUL1 ---
HPI HPI - General Adult General Chief complaint: Shortness of Breath/Dyspnea Stated complaint: SOB Time Seen by Provider: 04/16/25 12:57 Source: patient Mode of arrival: ambulance History of Present Illness HPI narrative: Usha is a 79-year-old female with a past medical history of anxiety, high blood pressure, high cholesterol, allergies, chronic pain, GERD, muscle spasms, and insomnia who presents to the emergency department secondary to feeling profoundly weak and short of breath. The patient was admitted to the hospital April 12 through the . Patient stated that she thought she was ready to go home. She went home however and went right to sleep. Then she was unable to get up unaided from her bed. She states that she tried to get up 3 times and was unable to do so. The patient then was able to get up today. She is unable to do any of her activities of daily living such as hygiene, cooking, or toileting herself. The patient's currently living at home right now. She already has physical therapy coming to the home. She has been participating in that. Yet she is continuing to get weaker. Patient's is at the [facility] in [place]. Patient feels like she is unable to care for herself. She states that she is a fall risk. She currently ambulates with a walker which she is too weak to even do so at this time. Unknown what makes worse. Nothing makes it better. Has been taking her medications as directed upon discharge from yesterday. She does not think she has ate since being home. Related Data Home Medications ?Medication ?Instructions ?Recorded ?Confirmed simvastatin 10 mg tablet 10 mg PO DAILY 12/01/22 04/16/25 fexofenadine 180 mg tablet 180 mg PO DAILY 12/26/24 04/16/25 (Radha Allergy) gabapentin 300 mg capsule 300 mg PO BID 12/26/24 04/16/25 magnesium oxide 400 mg (241.3 mg 400 mg PO DAILY 12/26/24 04/16/25 magnesium) tablet isosorbide mononitrate 30 mg 30 mg PO DAILY 12/28/24 04/16/25 tablet,extended release 24 hr hydralazine 25 mg tablet 25 mg PO BID 03/27/25 04/16/25 Held on 04/15/25. Instructions: Resume on 04/22/25. To be resumed by PCP hydrocodone 5 mg-acetaminophen 325 1 tab PO Q4H PRN pain 03/27/25 04/16/25 mg tablet alendronate 70 mg tablet 70 mg PO .WEEKLY 04/12/25 04/16/25 alprazolam 0.25 mg tablet 0.25 mg PO BID PRN anxiety 04/12/25 04/16/25 escitalopram oxalate 10 mg tablet 10 mg PO HS 04/12/25 04/16/25 nortriptyline 10 mg capsule 30 mg PO .QHS 04/12/25 04/16/25 pantoprazole 40 mg tablet,delayed 40 mg PO DAILY 04/12/25 04/16/25 release zolpidem 10 mg tablet 10 mg PO .qhs PRN sleep 04/12/25 04/16/25 Previous Rx's ?Medication ?Instructions ?Recorded cholecalciferol (vitamin D3) 50 50 mcg PO DAILY #30 tabs 12/29/24 mcg (2,000 unit) tablet (Vitamin D3) tizanidine 4 mg tablet 2 mg (1/2 x 4 mg) PO Q8H PRN 12/29/24 Muscle spasm #0 tabs aspirin 81 mg tablet 81 mg PO DAILY 30 days #30 tabs 04/15/25 metoprolol succinate 100 mg 100 mg PO DAILY #0 tabs 04/15/25 tablet,extended release 24 hr Allergies Allergy/AdvReac Type Severity Reaction Status Date / Time clarithromycin Allergy Severe Rash Verified 04/12/25 14:42 moxifloxacin (From Avelox) Allergy Severe tongue Verified 04/12/25 14:42 swelling Sulfa (Sulfonamide Allergy Unknown Unknown Verified 04/12/25 14:42 Antibiotics) ciprofloxacin (From Cipro) Allergy Rash Verified 04/12/25 14:42 Opioid HPI Opioid Management Most Recent Opioid Data: Last Pain Scale 0 04/15/25, 10:47 Last Pain Intensity 0 04/15/25, 10:47 Last Pain Assessment 04/15/25, 09:00 Last ORT Total Score 0 04/12/25, 17:21 Last ORT Risk Category Low Risk 04/12/25, 17:21 Review of Systems ROS Status of ROS 10 or more systems reviewed and unremarkable except as noted in history and below [facility] Medical History Benign essential hypertension ?I10 - Essential (primary) hypertension (ICD-10) Chronic heart failure with preserved ejection fraction (HFpEF) ?I50.32 - Chronic diastolic (congestive) heart failure (ICD-10) Generalized weakness ?R53.1 - Weakness (ICD-10) Fall ?W19.XXXA - Unspecified fall, initial encounter (ICD-10) Pulmonary edema ?J81.1 - Chronic pulmonary edema (ICD-10) Closed head injury ?S09.90XA - Unspecified injury of head, initial encounter (ICD-10) Contusion of right knee ?S80.01XA - Contusion of right knee, initial encounter (ICD-10) Abrasion of elbow, right ?S50.311A - Abrasion of right elbow, initial encounter (ICD-10) Pneumonia ?J18.9 - Pneumonia, unspecified organism (ICD-10) Acute CHF (congestive heart failure) ?I50.9 - Heart failure, unspecified (ICD-10) Community acquired pneumonia ?J18.9 - Pneumonia, unspecified organism (ICD-10) GERD without esophagitis ?K21.9 - Gastro-esophageal reflux disease without esophagitis (ICD-10) Lump of left breast ?N63.20 - Unspecified lump in the left breast, unspecified quadrant (ICD-10) High cholesterol ?E78.00 - Pure hypercholesterolemia, unspecified (ICD-10) Anxiety ?F41.9 - Anxiety disorder, unspecified (ICD-10) Macular degeneration ?H35.30 - Unspecified macular degeneration (ICD-10) Degenerative disc disease Fibromyalgia ?M79.7 - Fibromyalgia (ICD-10) Right shoulder pain ?M25.511 - Pain in right shoulder (ICD-10) Sleep apnea ?G47.30 - Sleep apnea, unspecified (ICD-10) Surgical History Carpal tunnel syndrome, left ?G56.02 - Carpal tunnel syndrome, left upper limb (ICD-10) History of arthroplasty of right ankle ?Z96.661 - Presence of right artificial ankle joint (ICD-10) History of bilateral knee replacement ?Z96.653 - Presence of artificial knee joint, bilateral (ICD-10) History of right hip replacement ?Z96.641 - Presence of right artificial hip joint (ICD-10) Family History Mother Family history of CHF (congestive heart failure) Sister Family history of CHF (congestive heart failure) Son Family history of cancer Family history of diabetes mellitus Family history of hypertension Social History Within the past year, how often did you have a drink containing alcohol: never Score interpretation: A score less than 3 is consistent with normal alcohol consumption. Smoking status: Never smoker Non-prescribed substance use: denies use Previous occupational history: retired Highest level of school completed/degree received: GED or equivalent Are you now , , , , never or living with a partner: In a typical week, how many times do you talk on the telephone with family, friends, or neighbors: 3 or more times per week How often do you get together with friends or relatives: 3 or more times per week How often do you attend mandaen or mormonism services: never Little interest or pleasure in doing things: not at all Feeling down, depressed, or hopeless: not at all Feel stressed/tense/nervous/anxious/difficulty sleeping: not at all Do you think of yourself as: straight/heterosexual Gender Identity: female Exam Narrative Exam Narrative: Prior to examining the patient, I have washed with hospital approved and provided Antiseptic Hand Product Analyst and have also applied gloves.? Prior to touching the patient, I asked for consent to examine the patient.? General: Alert and oriented, well nourished, mild distress. Morbid obesity Eye: PERRL, EOMI, normal conjunctiva. HENT: Normocephalic, normal hearing, moist oral mucosa, no scleral icterus, no sinus tenderness. Neck: Supple, non-tender, no carotid bruits, no JVD, no lymphadenopathy. Lungs: Clear to auscultation and percussion, non-labored respiration. Conversational. No conversational dyspnea. Nontoxic. Heart: Normal rate, regular rhythm, no murmur, gallop. Nonpitting edema bilateral lower extremities Abdomen: Soft, non-tender, non-distended, normal bowel sounds, no masses. Obese abdomen Musculoskeletal: Normal range of motion and strength, no tenderness or swelling. Skin: Skin is warm, dry and pink, no rashes or lesions. Neurologic: Awake, alert, and oriented X3, CN II-XII intact. Psychiatric: Cooperative, appropriate mood and affect.? Following the conclusion of the examination, I have washed my hands thoroughly after removing examination gloves. Constitutional Vital Signs, click to edit/add: Last Vital Signs Temp 98.7 F 04/16/25 11:48 Pulse 55 L 04/16/25 15:53 Resp 18 04/16/25 15:53 BP 165/95 H 04/16/25 15:53 Pulse Ox 97 04/16/25 15:53 O2 Del Method Room Air 04/16/25 11:48 Course Course Hospital Course: In summary, the patient is a 79-year-old female who was admitted to the hospital for 4 days and 3 overnights for congestive heart failure/atrial fibrillation. The patient was discharged home after she refused to go to rehab after physical therapy was recommended as an inpatient. Patient now is no longer able to care for herself and she is presenting back to the emergency department for definitive care and management. Vital Signs Vital signs: Vital Signs Temperature 98.7 F 04/16/25 11:48 Pulse Rate 54 L 04/16/25 11:48 Respiratory Rate 18 04/16/25 11:48 Blood Pressure 155/77 H 04/16/25 11:48 Pulse Oximetry 98 04/16/25 11:48 Oxygen Delivery Method Room Air 04/16/25 11:48 Temperature 98.7 F 04/16/25 11:48 Pulse Rate 55 L 04/16/25 15:53 Respiratory Rate 18 04/16/25 15:53 Blood Pressure 165/95 H 04/16/25 15:53 Pulse Oximetry 97 04/16/25 15:53 Oxygen Delivery Method Room Air 04/16/25 11:48 Medical Decision Making MDM Narrative Medical decision making narrative: 79-year-old presents with exertional dyspnea and fatigue. She states that she has no stamina to care for herself. Social work came out and promptly evaluated the patient after I demonstrated that the patient's x-ray and laboratories are actually better than when she was discharged. The patient is stable vital signs. She appears nontoxic and in no acute distress. She spoke with the patient and the patient's son. At this time the patient is eligible to go to [facility]. Her is currently at [facility] but there are no beds available for the patient to be transferred there. Patient is consenting to go to an alternative facility. Patient at time of transfer appears nontoxic and in no acute distress. Son is driving her. Differential Diagnosis Differential Diagnosis: Anemia, dehydration, renal failure, hypotension, bradycardia, hypothyroidis Medical Records Medical records reviewed: Yes I reviewed the patient's medical records Lab Data Lab results reviewed: Yes I reviewed the patient's lab results Labs: Lab Results 04/16/25 Range/Units 13:21 WBC 7.4 (4.0-11.0) 10^3/uL RBC 4.39 (4.20-5.40) 10^6/uL Hgb 14.4 (12.0-16.0) g/dL Hct 43.3 (36.0-48.0) % MCV 98.6 (81.0-99.0) fL MCH 32.8 (26.7-34.0) pg MCHC 33.3 (29.9-35.2) g/dL RDW 13.3 (11.0-15.0) % Plt Count 143 L (150-450) 10^3/uL MPV 11.3 (9.5-13.5) fL Neut % (Auto) 59.0 (43.0-75.0) % Lymph % (Auto) 24.2 (20.5-60.0) % Mathews % (Auto) 14.4 H (1.7-12.0) % Eos % (Auto) 1.9 (0.9-7.0) % Baso % (Auto) 0.4 (0.2-2.0) % Neut # (Auto) 4.3 (1.4-6.5) 10^3/uL Lymph # (Auto) 1.8 (1.2-3.8) 10^3/uL Mathews # (Auto) 1.1 H (0.3-0.8) 10^3/uL Eos # (Auto) 0.1 (0.0-0.7) 10^3/uL Baso # (Auto) 0.0 (0.0-0.1) 10^3/uL Abs Immat Gran (auto) 0.01 (0.00-0.03) 10^3/uL Imm/Tot Granulo (auto) 0.1 (0.0-0.5) % Sodium 140 (136-145) mmol/L Potassium 4.2 (3.5-5.1) mmol/L Chloride 104 (98-107) mmol/L Carbon Dioxide 31.6 (21.0-32.0) mmol/L Anion Gap 8.6 BUN 20.0 H (7.0-18.0) mg/dL Creatinine 1.14 H (0.55-1.02) mg/dL Est GFR ( Amer) 56 L (>=60 mL/min/1.73m^2) Est GFR (Non-Af Amer) 46 L (>=60 mL/min/1.73m^2) BUN/Creatinine Ratio 17.5 Glucose 93 (74-106) mg/dL Calcium 9.1 (8.5-10.1) mg/dL Total Bilirubin 1.0 (0.2-1.0) mg/dL AST 22 (15-37) U/L ALT 14 (14-59) U/L Alkaline Phosphatase 99 (46-116) U/L Troponin I High Sens 26.1 (4.0-51.3) pg/mL NT-Pro-B Natriuret Pep 839.0 (<=1800.0) pg/mL Total Protein 7.0 (6.4-8.2) g/dL Albumin 3.2 L (3.4-5.0) g/dL Globulin 3.8 g/dL Albumin/Globulin Ratio 0.8 CBC reveals no evidence of anemia or leukocytosis. Competence of metabolic panel is unremarkable. Patient's proBNP was negative. Troponin was negative. The labs are reassuring. Imaging Data Chest x-ray: Radiologist's impression: ITS Impressions Chest X-Ray 04/16/25 13:45 IMPRESSION: CHF FINDINGS WITH CHRONIC INTERSTITIAL CHANGES. NO DEFINITIVE CONSOLIDATION IS SEEN. Impression dictated by: Jayce De La Garza Jr., D.O. 04/16/2025 2:22 PM Dictation Location: [place] [address] Electronically authenticated by: [id number] Y Date: 04/16/2025 14:22 ECG Data Attestation: I personally reviewed and interpreted this ECG as follows: Interpretation: Sinus bradycardia with a ventricular to 54 bpm. The [place] interval is normal. QRS duration is borderline. QTc is not prolonged. [place] is normal. No evidence of ST segment elevation or depression suggestive of infarction or ischemia. The patient does have an isolated T wave inversion without contiguous or reciprocal lead changes in lead III. Summary: Nonspecific EKG. Discharge Plan Discharge Chief Complaint: Shortness of Breath/Dyspnea Clinical Impression: Sarcopenia, Weakness Patient Disposition: Home, Self-Care Time of Disposition Decision: 16:17 Condition: Fair Mode of Transportation: EMS Prescriptions / Home Meds: No Action simvastatin 10 mg tablet 10 mg PO DAILY magnesium oxide 400 mg (241.3 mg magnesium) tablet 400 mg PO DAILY fexofenadine [Radha Allergy] 180 mg tablet 180 mg PO DAILY gabapentin 300 mg capsule 300 mg PO BID isosorbide mononitrate 30 mg tablet extended release 24 hr 30 mg PO DAILY tizanidine 4 mg Tablet 2 mg PO Q8H PRN (Reason: Muscle spasm) Qty: 0 0RF cholecalciferol (vitamin D3) [Vitamin D3] 50 mcg (2,000 unit) tablet 50 mcg PO DAILY Qty: 30 0RF hydrocodone-acetaminophen 5-325 mg tablet 1 tab PO Q4H PRN (Reason: pain) hydralazine 25 mg tablet 25 mg PO BID alendronate 70 mg tablet 70 mg PO .WEEKLY zolpidem 10 mg tablet 10 mg PO .qhs PRN (Reason: sleep) escitalopram oxalate 10 mg tablet 10 mg PO HS pantoprazole 40 mg tablet,delayed release (DR/EC) 40 mg PO DAILY nortriptyline 10 mg capsule 30 mg PO .QHS alprazolam 0.25 mg tablet 0.25 mg PO BID PRN (Reason: anxiety) aspirin 81 mg tablet 81 mg PO DAILY 30 Days Qty: 30 0RF metoprolol succinate 100 mg tablet extended release 24 hr 100 mg PO DAILY Qty: 0 0RF Print Language: Indonesian Instructions: Weakness (ED) Referrals: REJI FORRESTER [Primary Care Provider, Internal Medicine] - 1 week
== END 2025-04-16 17:55 ==
PROVIDERS: Emergency Provider Emergency Medicine; PCP Internal Medicine
DX: M62.84 Sarcopenia (principal); I10 Essential (primary) hypertension; F41.9 Anxiety disorder, unspecified; E78.00 Pure hypercholesterolemia, unspecified; G89.29 Other chronic pain; G21.9 Secondary parkinsonism, unspecified; G47.00 Insomnia, unspecified; R06.02 Shortness of breath
CPT/HCPCS: 36415; 71045; 80053; 83880; 84484; 85025; 93005; 99284